=== PATIENT | male | born 1940 | race Caucasian/White ===

== ENCOUNTER 2022-10-30 13:39 | Outpatient (OUT) | payer MEDICARE, SELFPAY ==
--- NOTE | 2022-10-30 14:00 | MR_ITS ---
[address] [address] Patient Name: FRANKI VELA MRN: [id number] date: 1940 Sex: M Assigned Patient Location: MRI Current Patient Location: MRI Accession/Order Number: [id number] Exam Date: 10/30/2022 14:00 Report Date: 10/30/2022 16:46 At the request of: ASHLEY LOVING Procedure: MR lumbar spine wo con EXAMINATION: MR lumbar spine wo con HISTORY: Acute midline low back pain w/o sciatica M54.50, S32.010A ; chronic lumbar pain, L1 compression fracture COMPARISON: XR L-spine 10/05/2022, CT abdomen pelvis 09/12/2022 TECHNIQUE: A variety of imaging planes and parameters were utilized for visualization of suspected pathology. FINDINGS: For the purposes of numbering, sagittal T2 image # 9 extends from the T11-12 vertebral body superiorly to the S3 level inferiorly. PARASPINAL AREA: Normal with no visible mass. BONES: L1 marked compression fracture with prior vertebroplasty. No marrow edema. L2 inferior endplate moderate compression fracture with marrow edema. L4 posterior decompression. CORD/CAUDA EQUINA: Normal caliber, contour, and signal intensity. DISC LEVELS: 12-L1: Moderate central canal and moderate marked foramen narrowing bilaterally. Marked compression fracture and prior vertebroplasty of L1 with retropulsion of the superior aspect of the posterior wall. Moderate degenerative facet arthropathy, right greater than left. L1-L2: Mild central canal, moderate right, marked left foramen narrowing. Mild diffuse disc bulging without disc height reduction. Moderate degenerative facet arthropathy and ligamentum flavum thickening. Narrowing. L2-L3: Moderate central canal with marked bilateral foramen narrowing. Mild diffuse disc bulging and slight retropulsion of the inferior corner of the posterior wall of L2 secondary to inferior endplate moderate compression fracture. Mild-moderate degenerative facet arthropathy and ligamentum flavum thickening bilaterally. L3-L4: Mild central canal, moderate-marked right, moderate left foramen narrowing. Mild diffuse disc bulging without disc at reduction. Moderate degenerative facet arthropathy and ligamentum flavum thickening. L4 posterior decompression. L4-L5: Mild central canal and moderate marked foramen narrowing bilaterally. Mild diffuse disc bulging without disc at reduction. Marked degenerative facet arthropathy bilaterally. L5-S1: Mild central canal and moderate-marked right foramen, moderate left foramen narrowing. No appreciable disc bulging or disc height reduction. Marked degenerative facet arthropathy bilaterally. IMPRESSION: 1. Acute to subacute moderate compression fracture of L2; new since 10/05/2022. 2. Stable marked compression fracture of L1. 3. Recent CT study suggests progression of T11 compression fracture. T11 is only partially included on today's study, but no marrow edema to suggest active or progression of chronic compression fracture. 4. Multilevel marked foramen narrowing predominantly due to facet arthropathy. Moderate central canal narrowing at T12-L1 and L2-3 secondary to retropulsion of the posterior wall of L1 and L2 secondary to compression fractures. Electronically authenticated by: DARIAN BUTTS Date: 10/30/2022 16:46
== END 2022-10-30 13:40 ==
LOC: MRI 13:39
PROVIDERS: PCP Family Medicine; Visit Provider Nurse Practitioner Family
DX: M54.50 Low back pain, unspecified (principal); S32.010A Wedge compression fracture of first lumbar vertebra, initial encounter for closed fracture
CPT/HCPCS: 72148

== ENCOUNTER 2022-11-10 11:08 | Observation (INO) | payer MEDICARE, MEDICAID, SELFPAY ==
[2022-11-10] VITALS (25 sets, daily range): BP systolic 108–143; BP diastolic 55–78; PULSE 68–118; RESP 14–33; TEMP 36.4–36.6; O2SAT 90–99; BMI 18.7; BMI 18.1
--- NOTE | 2022-11-10 11:24 | ED_ITS ---
HPI - SOB/Dyspnea General Chief Complaint: Shortness of Breath/Dyspnea Stated Complaint: SHORTNESS OF BREATH/ GENERAL WEAKNESS Time Seen by Provider: 11/10/22 11:23 Source: patient Mode of arrival: Wheelchair Limitations: no limitations History of Present Illness HPI Narrative: this patient's here with his daughter complaining of increasing shortness of breath over the last several days. They do not believe he is running a fever. He's had increasing purulent sputum as well. He is not currently on any antibiotics. He has chronic atrial fibrillation and does take blood thinners for that. He also had about two or three episodes of diarrhea last night after taking Colace. He does not use oxygen at home. He has one coronary stent in one peripheral stent. He has not been around any other sick or ill patients that he knows of. He is fully vaccinated for Covid. Not having any chest pain, no nausea or vomiting. Does not have any discomfort in his neck or jaw. He is currently dealing with another compression fracture and has discomfort in his back. Related Data Home Medications Medication Instructions Recorded Confirmed apixaban 5 mg tablet (Eliquis) 5 mg PO DAILY 11/10/22 11/10/22 atorvastatin 20 mg tablet 20 mg feeding tube DAILY 11/10/22 11/10/22 finasteride 5 mg tablet 5 mg PO DAILY 11/10/22 11/10/22 hydrocodone 10 mg-acetaminophen 1 tab PO Q6H PRN pain 11/10/22 11/10/22 325 mg tablet insulin glargine 100 unit/mL (3 30 unit subcut DAILY 11/10/22 11/10/22 mL) subcutaneous pen (Lantus Solostar U-100 Insulin) lactulose 10 gram/15 mL oral 20 g feeding tube DAILY 11/10/22 11/10/22 solution (Constulose) levothyroxine 75 mcg capsule 75 mcg PO DAILY 11/10/22 11/10/22 pantoprazole 40 mg tablet,delayed 40 mg PO DAILY 11/10/22 11/10/22 release Allergies Allergy/AdvReac Type Severity Reaction Status Date / Time No Known Drug Allergies Allergy Verified 11/10/22 11:14 [facility] Medical History (Updated 11/10/22 @ 12:43 by Prasanna Casper MD) Surgical History (Updated 11/10/22 @ 12:02 by Ronnie Rosado) Social History Smoking status: Heavy tobacco smoker Exam Narrative Exam Narrative: vital signs are noted he is afebrile. He is in atrial fibrillation on his 12- lead EKG with a variable ventricular response. He's awake alert good historian does not want anything for pain at this time. Skin is warm and dry constitutional vital signs are noted with variable ventricular response as noted above. He looks thin acute on chronically ill. He is dehydrated. Says he has not had much of an appetite. I shows extracted most normal conjunctivitis. Respiratory show scattered rhonchi wheezing throughout. Cardiac shows regular rate and rhythm with no murmur. GIs belly is nontender. Extremities show no lower leg edema with just trace ankle edema. Neuro shows him to be awake alert good historian confusion. Constitutional Vital Signs - 24 hr 11/10/22 11:14 11/10/22 12:03 11/10/22 11:15 Temperature 97.5 F L Pulse Rate 105 H Pulse Rate [Monitor] 110 H Respiratory Rate 24 30 H Blood Pressure 108/78 Blood Pressure [Right Arm] 108/78 Pulse Oximetry 95 97 94 L Oxygen Delivery Method Room Air Room Air 11/10/22 11:15 11/10/22 11:19 Temperature Pulse Rate 106 H Pulse Rate [Monitor] Respiratory Rate 29 H Blood Pressure 143/66 H Blood Pressure [Right Arm] Pulse Oximetry 96 93 L Oxygen Delivery Method Course Vital Signs Vital signs: Vital Signs Temperature 97.5 F L 11/10/22 11:14 Pulse Rate 110 H 11/10/22 11:14 Respiratory Rate 24 11/10/22 11:14 Blood Pressure 108/78 11/10/22 11:14 Pulse Oximetry 95 11/10/22 11:14 Oxygen Delivery Method Room Air 11/10/22 11:14 Temperature 97.5 F L 11/10/22 11:14 Pulse Rate 106 H 11/10/22 11:19 Respiratory Rate 29 H 11/10/22 11:19 Blood Pressure 143/66 H 11/10/22 11:19 Pulse Oximetry 97 11/10/22 12:03 Oxygen Delivery Method Room Air 11/10/22 12:03 MDM - SOB/Dyspnea MDM Narrative Medical decision making narrative: this patient does have an elevation of his white blood cell count change in his sputum and chest x-ray findings consistent with early infiltrate or atelectasis. The patient this does feel little bit better with his nebulizer treatment but he also has chronic back pain from an ongoing compression fracture. He is barely able to sit up and was unable to stand and go for a walk in the room. His pulse oximetry is stable at ninety-three percent but in view of his comorbidities and ongoing medical problems I believe he be best managed as an inpatient. We will contact his primary care doctor. Rocephin will be ordered, he'll be given analgesics. His atrial fibrillation is moderately controlled. Lab Data Labs: Lab Results 11/10/22 Range/Units 11:25 WBC 14.5 H (4.0-11.0) 10^3/uL RBC 4.01 L (4.70-6.10) 10^6/uL Hgb 12.6 L (14.0-18.0) g/dL Hct 38.2 L (42.0-54.0) % MCV 95.3 H (80.0-94.0) fL MCH 31.4 (25.9-34.0) pg MCHC 33.0 (29.9-35.2) g/dL RDW 12.7 (11.0-15.0) % Plt Count 351 (150-450) 10^3/uL MPV 9.4 L (9.5-13.5) fL Neut % (Auto) 81.5 H (43.0-75.0) % Lymph % (Auto) 10.6 L (20.5-60.0) % Gibson % (Auto) 5.4 (1.7-12.0) % Eos % (Auto) 0.8 L (0.9-7.0) % Baso % (Auto) 0.3 (0.2-2.0) % Neut # (Auto) 11.8 H (1.4-6.5) 10^3/uL Lymph # (Auto) 1.5 (1.2-3.8) 10^3/uL Gibson # (Auto) 0.8 (0.3-0.8) 10^3/uL Eos # (Auto) 0.1 (0.0-0.7) 10^3/uL Baso # (Auto) 0.0 (0.0-0.1) 10^3/uL Abs Immat Gran (auto) 0.20 H (0.00-0.03) 10^3/uL Imm/Tot Granulo (auto) 1.4 H (0.0-0.5) % Sodium 141 (136-145) mmol/L Potassium 3.6 (3.5-5.1) mmol/L Chloride 105 (98-107) mmol/L Carbon Dioxide 25.8 (21.0-32.0) mmol/L Anion Gap 13.8 BUN 25.0 H (7.0-18.0) mg/dL Creatinine 0.96 (0.70-1.30) mg/dL Est GFR ( Amer) >60 (>=60) Est GFR (Non-Af Amer) >60 (>=60) BUN/Creatinine Ratio 26.0 Glucose 136 H (74-106) mg/dL Calcium 9.4 (8.5-10.1) mg/dL Total Bilirubin 0.5 (0.2-1.0) mg/dL AST 10 L (15-37) U/L ALT 11 L (16-63) U/L Alkaline Phosphatase 126 H (46-116) U/L Troponin I High Sens 13.5 (4.0-76.1) pg/mL NT-Pro-B Natriuret Pep 1067.0 (<=1800.0) pg/mL Total Protein 6.8 (6.4-8.2) g/dL Albumin 2.9 L (3.4-5.0) g/dL Globulin 3.9 g/dL Albumin/Globulin Ratio 0.7 Discharge Plan Discharge Chief Complaint: Shortness of Breath/Dyspnea Clinical Impression: Compression fracture of lumbar spine, non-traumatic, Community acquired pneumonia Patient Disposition: Admitted As Inpatient Time of Disposition Decision: 12:43 Condition: Fair Prescriptions / Home Meds: No Action Eliquis 5 mg tablet 5 mg PO DAILY finasteride 5 mg tablet 5 mg PO DAILY hydrocodone-acetaminophen 10-325 mg tablet 1 tab PO Q6H PRN (Reason: pain) insulin glargine [Lantus Solostar U-100 Insulin] 100 unit/mL (3 mL) insulin pen 30 unit SUBCUT DAILY lactulose [Constulose] 10 gram/15 mL solution 20 g feeding tube DAILY pantoprazole 40 mg tablet,delayed release (DR/EC) 40 mg PO DAILY atorvastatin 20 mg tablet 20 mg feeding tube DAILY levothyroxine 75 mcg capsule 75 mcg PO DAILY Referrals: Juvenal Murphy MD [Primary Care Provider] - 1 week
--- NOTE | 2022-11-10 11:32 | XR_ITS ---
The [address] [address] Patient Name: FRANKI VELA MRN: [id number] date: 1940 Sex: M Assigned Patient Location: ER Current Patient Location: ER Accession/Order Number: [id number] Exam Date: 11/10/2022 11:40 Report Date: 11/10/2022 12:00 At the request of: ALVINA CHRISTY Procedure: XR chest 1V EXAMINATION: XR chest 1V HISTORY: cough , shortness of breath COMPARISON: XR chest 08/17/2022 FINDINGS: LUNGS: Mild haziness and loss of bronchovascular markings within lung bases. VASCULATURE: No increased pulmonary vasculature. PLEURA: No pneumothorax, effusion, or pleural thickening. CARDIAC: No cardiomegaly or cardiac silhouette abnormality. MEDIASTINUM: No visible mass or adenopathy. BONES: No fracture or visible bone lesion. OTHER: Negative. IMPRESSION: 1. Trace amount of bibasilar infiltrates versus atelectasis. Electronically authenticated by: DARIAN BUTTS Date: 11/10/2022 12:00
--- NOTE | 2022-11-10 11:32 | ECG_ITS ---
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
[2022-11-10 11:45] LABS: Basophils Percent Auto 0.3 % (0.2-2.0); Eosinophils Absolute Auto 0.1 10^3/uL (0.0-0.7); Eosinophils Percent Auto 0.8 % (0.9-7.0); Hematocrit 38.2 % (42.0-54.0); Hemoglobin 12.6 g/dL (14.0-18.0); Immature Granulocytes Pct Auto 1.4 % (0.0-0.5); Lymphocytes Absolute Auto 1.5 10^3/uL (1.2-3.8); Lymphocytes Percent Auto 10.6 % (20.5-60.0); Mean Corpuscular Hemoglobin 31.4 pg (25.9-34.0); Mean Corpuscular Volume 95.3 fL (80.0-94.0); Mean Platelet Volume 9.4 fL (9.5-13.5); Monocytes Absolute Auto 0.8 10^3/uL (0.3-0.8); Monocytes Percent Auto 5.4 % (1.7-12.0); Neutrophils Absolute Auto 11.8 10^3/uL (1.4-6.5); Neutrophils Percent Auto 81.5 % (43.0-75.0); Platelet Count 351 10^3/uL (150-450); Red Blood Count 4.01 10^6/uL (4.70-6.10); Red Cell Distribution Width 12.7 % (11.0-15.0); White Blood Count 14.5 10^3/uL (4.0-11.0)
[2022-11-10] MEDS: IPRATROPIUM/ALBUTEROL SULFATE 3 ML AMPUL.NEB IH ×2 (11:52→22:30)
[2022-11-10 12:10] LABS: Alanine Aminotransferase 11 U/L (16-63); Albumin Globulin Ratio 0.7; Albumin Level 2.9 g/dL (3.4-5.0); Alkaline Phosphatase 126 U/L (46-116); Anion Gap 13.8; Aspartate Amino Transferase 10 U/L (15-37); Bilirubin Total 0.5 mg/dL (0.2-1.0); Calcium 9.4 mg/dL (8.5-10.1); Carbon Dioxide 25.8 mmol/L (21.0-32.0); Chloride 105 mmol/L (98-107); Estimated GFR (African America >60 (>=60); Estimated GFR (Non-African Ame >60 (>=60); Globulin 3.9 g/dL; Glucose 136 mg/dL (74-106); Potassium 3.6 mmol/L (3.5-5.1); Sodium 141 mmol/L (136-145); Total Protein 6.8 g/dL (6.4-8.2); Troponin I High Sensitivity 13.5 pg/mL (4.0-76.1)
[2022-11-10] MEDS: HYDROMORPHONE HCL 2 MG/ML VIAL 1 MG IV (13:01)
[2022-11-10] MEDS: CEFTRIAXONE 1,000 MG in 0.9 % SODIUM CHLORIDE 50 ML 100 MG IV (13:08)
--- NOTE | 2022-11-10 15:14 | PC.NURSE ---
cell phone, 2 shirt
[2022-11-10 16:13] LABS: SARS-CoV-2 Ag NEGATIVE (NEGATIVE)
[2022-11-10 17:49] LABS: Glucometer 117 mg/dL (74-106)
[2022-11-10] MEDS: L. ACIDOPHILUS/L.BULGARICUS 1 PACKET GRAN.PACK PO (17:58)
[2022-11-10] MEDS: LACTATED RINGER'S SOLUTION 1,000 ML 50 ML IV (17:58)
[2022-11-10] MEDS: METHYLPREDNISOLONE SOD SUCC PF 125 MG/2 ML VIAL IVP ×2 (18:06→22:30)
[2022-11-10 18:32] LABS: Adenovirus NOT DETECTED (NOT DETECTE); Bordetella parapertussis NOT DETECTED (NOT DETECTE); Coronavirus 229E NOT DETECTED (NOT DETECTE); Coronavirus HKU1 NOT DETECTED (NOT DETECTE); Coronavirus NL63 NOT DETECTED (NOT DETECTE); Coronavirus OC43 NOT DETECTED (NOT DETECTE); Human Metapneumovirus NOT DETECTED (NOT DETECTE); Human Rhinovirus/Enterovirus NOT DETECTED (NOT DETECTE); Influenza A NOT DETECTED (NOT DETECTE); Influenza B NOT DETECTED (NOT DETECTE); Mycoplasma pneumoniae NOT DETECTED (NOT DETECTE); Parainfluenza Virus 1 NOT DETECTED (NOT DETECTE); Parainfluenza Virus 2 NOT DETECTED (NOT DETECTE); Parainfluenza Virus 3 NOT DETECTED (NOT DETECTE); Parainfluenza Virus 4 NOT DETECTED (NOT DETECTE); Respiratory Syncytial Virus NOT DETECTED (NOT DETECTE); SARS-CoV-2 NOT DETECTED (NOT DETECTE)
--- NOTE | 2022-11-10 18:42 | PC.NURSE ---
This nurse has attempted x 3 since 1544 to contact for diet order. Pt does have Gtube however eats solid food and drinks, only substitutes with GTube. Discussed matter with supervisor wound, suggested to wait for response from and if not by later this evening hospitalist will be contacted with foods pt normally eats. Current diet order reads tube feed, no formula is ordered.
[2022-11-10] MEDS: LEVOFLOXACIN IN DEXTROSE 5 % 500 MG/100 ML PIGGYBACK 100 MG IV (19:36)
[2022-11-10 20:13] LABS: Glucometer 222 mg/dL (74-106)
[2022-11-10] MEDS: PROSTAT 15 GM PROTEIN/100 CAL 30 ML LIQUID PACKET FEED TUBE (21:01)
[2022-11-10] MEDS: APIXABAN 5 MG TABLET 2.5 MG PO (21:02)
[2022-11-10] MEDS: ATORVASTATIN CALCIUM 20 MG TABLET PO (21:02)
[2022-11-10] MEDS: BENZONATATE 100 MG CAPSULE 200 MG PO (21:02)
[2022-11-10] MEDS: INSULIN ASPART 300 UNIT/3 ML PEN SUBQ (21:05)
[2022-11-10] MEDS: BUDESONIDE 0.5 MG/2 ML AMPULE NEB IH (22:16)
[2022-11-11] VITALS (7 sets, daily range): BP systolic 164; BP diastolic 66; PULSE 69–98; RESP 18; TEMP 37; O2SAT 96
[2022-11-11 04:54] LABS: Basophils Percent Auto 0.1 % (0.2-2.0); Eosinophils Percent Auto 0.1 % (0.9-7.0); Hematocrit 32.6 % (42.0-54.0); Hemoglobin 10.6 g/dL (14.0-18.0); Immature Granulocytes Abs Auto 0.09 10^3/uL (0.00-0.03); Immature Granulocytes Pct Auto 1.3 % (0.0-0.5); Lymphocytes Absolute Auto 0.3 10^3/uL (1.2-3.8); Lymphocytes Percent Auto 4.4 % (20.5-60.0); Mean Corpuscular HGB Conc 32.5 g/dL (29.9-35.2); Mean Corpuscular Hemoglobin 30.8 pg (25.9-34.0); Mean Corpuscular Volume 94.8 fL (80.0-94.0); Mean Platelet Volume 9.8 fL (9.5-13.5); Monocytes Percent Auto 0.6 % (1.7-12.0); Neutrophils Absolute Auto 6.3 10^3/uL (1.4-6.5); Neutrophils Percent Auto 93.5 % (43.0-75.0); Platelet Count 232 10^3/uL (150-450); Red Blood Count 3.44 10^6/uL (4.70-6.10); Red Cell Distribution Width 12.5 % (11.0-15.0); White Blood Count 6.8 10^3/uL (4.0-11.0)
[2022-11-11] MEDS: IPRATROPIUM/ALBUTEROL SULFATE 3 ML AMPUL.NEB IH (05:02)
[2022-11-11] MEDS: METHYLPREDNISOLONE SOD SUCC PF 125 MG/2 ML VIAL IVP (05:03)
[2022-11-11] MEDS: BENZONATATE 100 MG CAPSULE 200 MG PO (05:03)
[2022-11-11 05:31] LABS: Alanine Aminotransferase 10 U/L (16-63); Albumin Globulin Ratio 0.7; Albumin Level 2.4 g/dL (3.4-5.0); Alkaline Phosphatase 100 U/L (46-116); Anion Gap 11.8; Aspartate Amino Transferase 7 U/L (15-37); BUN Creatinine Ratio 29.3; Bilirubin Total 0.3 mg/dL (0.2-1.0); Calcium 8.7 mg/dL (8.5-10.1); Carbon Dioxide 24.2 mmol/L (21.0-32.0); Chloride 102 mmol/L (98-107); Estimated GFR (African America >60 (>=60); Estimated GFR (Non-African Ame >60 (>=60); Globulin 3.4 g/dL; Glucose 247 mg/dL (74-106); Magnesium 1.7 mg/dL (1.8-2.4); Sodium 134 mmol/L (136-145); Total Protein 5.8 g/dL (6.4-8.2)
[2022-11-11] MEDS: LEVOTHYROXINE SODIUM 75 MCG TABLET PO (05:58)
[2022-11-11] MEDS: OMEPRAZOLE 40 MG CAPSULE.DR PO (05:59)
[2022-11-11 07:32] LABS: Glucometer 310 mg/dL (74-106)
--- NOTE | 2022-11-11 07:52 | P.HP_ITS ---
H&P: HPI History of Present Illness Chief complaint: SHORTNESS OF BREATH/ GENERAL WEAKNESS Narrative: Patient presented to the emergency room, found to have acute bilateral pneumonia, mild hypoxia, admitted for work-up and treatment of same Review of Systems ROS Status of ROS 10 or more systems reviewed and unremarkable except as noted in history and below Constitutional Reports: fatigue and malaise; Denies: fever or chills Ears, nose, mouth, and throat Reports: neck pain; Denies: throat swelling or difficulty swallowing Cardiovascular Denies: chest pain or palpitations Respiratory Reports: shortness of breath, cough, wheezing and change in phlegm color Genitourinary Denies: painful urination or urinary frequency Musculoskeletal Reports: back pain PFSH [facility] Medical History (Updated 11/11/22 @ 07:55 by Juvenal Murphy MD) Surgical History (Updated 11/10/22 @ 12:02 by Ronnie Rosado) Social History (Updated 11/10/22 @ 15:16 by Rebecca Morocho) Smoking status: Heavy tobacco smoker Nicotine containing products detail: 66 1 pack per day Do you think of yourself as: straight/heterosexual Meds Home Medications and Allergies Home Medications Medication Instructions Recorded Confirmed Type albuterol sulfate 90 mcg/actuation 1 inh inhalation Q4H PRN shortness 11/10/22 11/10/22 History aerosol inhaler (ProAir HFA) of breath or wheezing apixaban 2.5 mg tablet (Eliquis) 2.5 mg PO BID 11/10/22 11/10/22 History atorvastatin 20 mg tablet 20 mg PO .AT BEDTIME 11/10/22 11/10/22 History baclofen 20 mg tablet See Rx Instructions PO QID 11/10/22 11/10/22 History budesonide 0.5 mg/2 mL suspension 0.5 mg inhalation BID 11/10/22 11/10/22 History for nebulization clopidogrel 75 mg tablet 75 mg PO DAILY 11/10/22 11/10/22 History finasteride 5 mg tablet 5 mg PO DAILY 11/10/22 11/10/22 History hydrocodone 10 mg-acetaminophen 1 tab PO Q6H PRN pain 11/10/22 11/10/22 History 325 mg tablet insulin glargine 100 unit/mL (3 30 unit subcut DAILY 11/10/22 11/10/22 History mL) subcutaneous pen (Lantus Solostar U-100 Insulin) levothyroxine 75 mcg capsule 75 mcg PO DAILY 11/10/22 11/10/22 History pantoprazole 40 mg tablet,delayed 40 mg PO DAILY 11/10/22 11/10/22 History release tizanidine 4 mg capsule 4 mg PO Q6H PRN muscle spasticity 11/10/22 11/10/22 History levofloxacin 500 mg tablet 500 mg PO DAILY 10 days #10 tabs 11/11/22 Rx prednisone 10 mg tablet 50 mg PO DAILY #47 tabs 11/11/22 Rx Allergies Allergy/AdvReac Type Severity Reaction Status Date / Time No Known Drug Allergies Allergy Verified 11/10/22 11:14 Exam Constitutional Vital Signs - 24 hr 11/10/22 11:14 11/10/22 12:03 11/10/22 11:15 Temperature 97.5 F L Pulse Rate 105 H Pulse Rate [Monitor] 110 H Respiratory Rate 24 30 H Blood Pressure 108/78 Blood Pressure [Left Arm] Blood Pressure [Right Arm] 108/78 Pulse Oximetry 95 97 94 L Oxygen Delivery Method Room Air Room Air 11/10/22 11:15 11/10/22 11:19 11/10/22 12:40 Temperature Pulse Rate 106 H Pulse Rate [Monitor] 104 H Respiratory Rate 29 H 28 H Blood Pressure 143/66 H Blood Pressure [Left Arm] Blood Pressure [Right Arm] 140/59 H Pulse Oximetry 96 93 L 93 L Oxygen Delivery Method Room Air 11/10/22 11:19 11/10/22 12:30 11/10/22 12:35 Temperature Pulse Rate 105 H 107 H Pulse Rate [Monitor] Respiratory Rate 30 H 25 H Blood Pressure 143/66 H 140/59 H Blood Pressure [Left Arm] Blood Pressure [Right Arm] Pulse Oximetry 93 L 95 95 Oxygen Delivery Method 11/10/22 12:40 11/10/22 12:50 11/10/22 13:00 Temperature Pulse Rate 115 H 109 H 113 H Pulse Rate [Monitor] Respiratory Rate 23 20 15 Blood Pressure Blood Pressure [Left Arm] Blood Pressure [Right Arm] Pulse Oximetry 97 95 96 Oxygen Delivery Method 11/10/22 13:10 11/10/22 13:20 11/10/22 13:30 Temperature Pulse Rate 105 H 93 H 102 H Pulse Rate [Monitor] Respiratory Rate 25 H 24 33 H Blood Pressure Blood Pressure [Left Arm] Blood Pressure [Right Arm] Pulse Oximetry 93 L 92 L 96 Oxygen Delivery Method 11/10/22 13:40 11/10/22 14:51 11/10/22 15:04 Temperature 97.8 F Pulse Rate 113 H 92 H Pulse Rate [Monitor] 92 H Respiratory Rate 15 18 Blood Pressure Blood Pressure [Left Arm] Blood Pressure [Right Arm] 130/69 H Pulse Oximetry 97 96 96 Oxygen Delivery Method Room Air Room Air 11/10/22 13:50 11/10/22 14:00 11/10/22 14:10 Temperature Pulse Rate 97 H 103 H 113 H Pulse Rate [Monitor] Respiratory Rate 14 14 15 Blood Pressure Blood Pressure [Left Arm] Blood Pressure [Right Arm] Pulse Oximetry 95 94 L 98 Oxygen Delivery Method 11/10/22 14:20 11/10/22 14:30 11/10/22 18:07 Temperature Pulse Rate 118 H 101 H 90 Pulse Rate [Monitor] Respiratory Rate 20 17 Blood Pressure Blood Pressure [Left Arm] Blood Pressure [Right Arm] Pulse Oximetry 99 97 Oxygen Delivery Method 11/10/22 20:14 11/10/22 21:34 11/10/22 22:16 Temperature 97.9 F Pulse Rate 76 71 68 Pulse Rate [Monitor] Respiratory Rate 18 18 Blood Pressure Blood Pressure [Left Arm] 123/55 H Blood Pressure [Right Arm] Pulse Oximetry 90 L 91 L Oxygen Delivery Method Room Air Room Air 11/10/22 22:16 11/10/22 22:27 11/11/22 00:00 Temperature Pulse Rate 78 94 H Pulse Rate [Monitor] Respiratory Rate Blood Pressure Blood Pressure [Left Arm] Blood Pressure [Right Arm] Pulse Oximetry 91 L Oxygen Delivery Method Room Air 11/11/22 02:00 11/11/22 04:00 11/11/22 04:56 Temperature 98.6 F Pulse Rate 81 70 76 Pulse Rate [Monitor] Respiratory Rate 18 Blood Pressure Blood Pressure [Left Arm] 164/66 H Blood Pressure [Right Arm] Pulse Oximetry 96 Oxygen Delivery Method Room Air 11/11/22 05:01 11/11/22 06:00 Temperature Pulse Rate 69 98 H Pulse Rate [Monitor] Respiratory Rate 18 Blood Pressure Blood Pressure [Left Arm] Blood Pressure [Right Arm] Pulse Oximetry 96 Oxygen Delivery Method Room Air Common normals: apparent distress (Mild respiratory distress) Exam limitations: no altered mental status General appearance: cooperative; not comfortable HENNH Common normals: moist oral mucous membranes Neck & C-Spine Common normals: no lymphadenopathy and no meningeal signs; negative for full ROM Respiratory Common normals: abnormal respiratory effort (Mild dyspnea) Effort & inspection: able to speak in complete sentences Auscultation: rhonchi Other: Rhonchi more predominant bilateral lower lobes Cardio Common normals: regular rate, regular rhythm, S1 normal heart sound, S2 normal heart sound and no murmurs GI Common normals: Normal to inspection, nondistended, normoactive bowel sounds present (Gastric tube in place) Neuro Common normals: oriented x3 Results Labs Labs: Short CBC 11/10/22 11/11/22 Range/Units 11:25 03:59 WBC 14.5 H 6.8 (4.0-11.0) 10^3/uL Hgb 12.6 L 10.6 L (14.0-18.0) g/dL Hct 38.2 L 32.6 L (42.0-54.0) % Plt Count 351 232 (150-450) 10^3/uL BMP 11/10/22 11/11/22 11:25 03:59 Sodium 141 134 L Potassium 3.6 4.0 Chloride 105 102 Carbon Dioxide 25.8 24.2 BUN 25.0 H 27.0 H Creatinine 0.96 0.92 Glucose 136 H 247 H Calcium 9.4 8.7 Liver Function 11/10/22 11/11/22 Range/Units 11:25 03:59 Total Bilirubin 0.5 0.3 (0.2-1.0) mg/dL AST 10 L 7 L (15-37) U/L ALT 11 L 10 L (16-63) U/L Alkaline Phosphatase 126 H 100 (46-116) U/L Albumin 2.9 L 2.4 L (3.4-5.0) g/dL Assessment and Plan Assessment and Plan (1) History of COPD: (2) History of diabetes mellitus: (3) History of gastrostomy tube placement: (4) History of throat cancer: Plan Sinus tachycardia, leukocytosis secondary to bilateral lower lobe pneumonia with mild hypoxia-much improved today, leukocytosis has resolved, patient overall feels much improved from a strength standpoint. Able to ambulate better today. If this maintains from this morning he can be discharged home in improving condition. Medications see list. Follow-up with me in the office as outpatient in the next 2 days. NIDDM-managed with insulin-increase sliding scale, hyperglycemia secondary to steroids for the above. Hypomagnesemia-supplement Significant lumbar disc disease with new onset of compression fracture-he is undergoing work-up for this at the present time. Patient placed in inpatient status is done in error with the EMR, he should be observation only.
[2022-11-11] MEDS: MAGNESIUM OXIDE 400 MG TABLET G-TUBE (09:03)
[2022-11-11] MEDS: FINASTERIDE 5 MG TABLET PO (09:03)
[2022-11-11] MEDS: CLOPIDOGREL BISULFATE 75 MG TABLET PO (09:03)
[2022-11-11] MEDS: INSULIN DETEMIR 300 UNIT/3 ML INSULN.PEN 30 UNIT SUBQ (09:03)
[2022-11-11] MEDS: APIXABAN 5 MG TABLET 2.5 MG PO (09:03)
[2022-11-11] MEDS: PROSTAT 15 GM PROTEIN/100 CAL 30 ML LIQUID PACKET FEED TUBE (09:03)
--- NOTE | 2022-11-11 09:53 | SWNOTE1 ---
SW met with pt to discuss dc needs. Pt lives at home with his , daughter, and grandchild. Pt uses a cane, but has a walker at home as well. Pt did talk about having oxygen at home as well, but he is on room air at hospital. Pt is not current with any Home health and does not feel he needs it. Pt lives in a 1 story home. Pt denies any needs at this time, SW to follow as needed. SW reviewed MOORE form with pt, pt voiced understanding and does not have any questions. Pt signed form, original given to pt and copy placed in chart.
[2022-11-11 15:38] LABS: SARS-CoV-2 NAA NOT DETECTED (NOT DETECTE)
--- NOTE | 2022-11-12 15:42 | CM.DCFOLLOWU ---
Person spoke with: Michel How are you feeling? Much better How is your pain? no pain Did you understand your discharge instructions? yes Do you have any questions about your discharge instructions? no Were you given any prescriptions at discharge? yes Were you able to get your prescriptions filled? yes Do you understand how to take your medications as ordered? yes Do you have any questions about your follow up appointment and do you plan to keep your follow up appointment? My appointment is tomorrow Is there anything else that you would like to discuss? no Questions/Comments/Concerns/Other:
== END 2022-11-11 10:59 | disposition home or self-care (01) ==
LOC: ER 12:43 → MS 16:01
PROVIDERS: Admitting Provider Family Medicine; Emergency Provider Emergency Medicine Emergency Medical Services; PCP Family Medicine; Visit Provider Family Medicine
DX: J18.9 Pneumonia, unspecified organism (principal); R09.02 Hypoxemia; J44.0 Chronic obstructive pulmonary disease with (acute) lower respiratory infection; E11.65 Type 2 diabetes mellitus with hyperglycemia; E83.42 Hypomagnesemia; M48.56XA Collapsed vertebra, not elsewhere classified, lumbar region, initial encounter for fracture; M51.9 Unspecified thoracic, thoracolumbar and lumbosacral intervertebral disc disorder; R00.0 Tachycardia, unspecified; R06.02 Shortness of breath; I48.20 Chronic atrial fibrillation, unspecified; F17.210 Nicotine dependence, cigarettes, uncomplicated; T38.0X5A Adverse effect of glucocorticoids and synthetic analogues, initial encounter; Z79.01 Long term (current) use of anticoagulants; Z93.1 Gastrostomy status; Z85.819 Personal history of malignant neoplasm of unspecified site of lip, oral cavity, and pharynx; Z20.822 Contact with and (suspected) exposure to COVID-19; Z95.5 Presence of coronary angioplasty implant and graft; Z79.899 Other long term (current) drug therapy; Z79.4 Long term (current) use of insulin; Z79.890 Hormone replacement therapy
CPT/HCPCS: 0202U; 36415; 71045; 80053; 83605; 83735; 83880; 84484; 85025; 87040; 87070; 87106; 87205; 87635; 87811; 93005; 94640; 94667; 94761; 96365; 96366; 96367; 96375; 96376; 97161; 99285; G0378; J1170; J2930

== ENCOUNTER 2022-11-12 14:14 | Outpatient (OUT) | payer MEDICARE, MEDICAID, SELFPAY | END 2022-11-12 14:15 | disposition home or self-care (01) | LOC: WC 14:16 | PROVIDERS: PCP Family Medicine; Visit Provider Surgery | DX: I87.321 Chronic venous hypertension (idiopathic) with inflammation of right lower extremity (principal); D50.0 Iron deficiency anemia secondary to blood loss (chronic); I74.09 Other arterial embolism and thrombosis of abdominal aorta; J44.9 Chronic obstructive pulmonary disease, unspecified; F17.210 Nicotine dependence, cigarettes, uncomplicated; E11.65 Type 2 diabetes mellitus with hyperglycemia; K21.00 Gastro-esophageal reflux disease with esophagitis, without bleeding; I50.9 Heart failure, unspecified; I10 Essential (primary) hypertension; E03.9 Hypothyroidism, unspecified; M51.36 Other intervertebral disc degeneration, lumbar region; E44.0 Moderate protein-calorie malnutrition; I73.89 Other specified peripheral vascular diseases; M54.16 Radiculopathy, lumbar region | CPT/HCPCS: G0463 ==

== ENCOUNTER 2022-12-07 02:17 | Observation (INO) | payer MEDICARE, MEDICAID, SELFPAY ==
[2022-12-07] VITALS (20 sets, daily range): BP systolic 105–143; BP diastolic 57–75; PULSE 51–85; RESP 3–26; TEMP 36.7–37.2; O2SAT 86–100; BMI 18.4
--- NOTE | 2022-12-07 02:33 | XR_ITS ---
The [address] [address] Patient Name: FRANKI VELA MRN: [id number] date: 1940 Sex: M Assigned Patient Location: ER Current Patient Location: ED.MAIN Accession/Order Number: [id number] Exam Date: 12/07/2022 02:45 Report Date: 12/07/2022 03:20 At the request of: GREGOR LYNCH Procedure: XR chest 1V XR chest 1V CLINICAL HISTORY: Shortness of breath. COMPARISON: 11/10/2022. 09/12/2022. TECHNIQUE: Single AP portable upright view of the chest. FINDINGS: Lungs are hyperinflated with chronic interstitial thickening and scarring in the lung bases to large priors with no definite active airspace opacity. No pleural effusion or pneumothorax. Normal heart size. Atherosclerotic aorta. Osteopenia. Thoracic spondylosis. XR/XR chest 1V IMPRESSION: Stable chronic changes with no convincing interval active airspace disease. Electronically authenticated by: BERKLEY VILLATORO Date: 12/07/2022 03:20
--- NOTE | 2022-12-07 02:33 | ECG_ITS ---
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
--- NOTE | 2022-12-07 02:39 | PC.NURSE ---
Pt presents to ER with his and daughter for shortness of breath Pt is soft spoken and of few words When this nurse ask's pt's family why he is here, his daughter replies by saying everything Pt's daughter states he was recently discharged from [facility] after a long stay for everything with his heart and lungs Pt's daughter states he has had a cough today and told her that he couldn't catch his breath Pt's daughter stated his normal pulse ox is 86%
[2022-12-07 02:57] LABS: Hematocrit 33.9 % (42.0-54.0); Mean Corpuscular HGB Conc 32.4 g/dL (29.9-35.2); Mean Corpuscular Hemoglobin 30.6 pg (25.9-34.0); Mean Corpuscular Volume 94.4 fL (80.0-94.0); Mean Platelet Volume 10.5 fL (9.5-13.5); Platelet Count 370 10^3/uL (150-450); Red Blood Count 3.59 10^6/uL (4.70-6.10); Red Cell Distribution Width 13.8 % (11.0-15.0)
[2022-12-07 03:16] LABS: Alanine Aminotransferase 27 U/L (16-63); Albumin Globulin Ratio 0.6; Albumin Level 2.4 g/dL (3.4-5.0); Alkaline Phosphatase 353 U/L (46-116); Aspartate Amino Transferase 15 U/L (15-37); BUN Creatinine Ratio 58.2; Bilirubin Total 0.3 mg/dL (0.2-1.0); Carbon Dioxide 27.6 mmol/L (21.0-32.0); Chloride 103 mmol/L (98-107); Estimated GFR (African America 51 (>=60); Estimated GFR (Non-African Ame 42 (>=60); Globulin 3.8 g/dL; Glucose 229 mg/dL (74-106); Sodium 136 mmol/L (136-145); Total Protein 6.2 g/dL (6.4-8.2); Troponin I High Sensitivity 14.5 pg/mL (4.0-76.1)
[2022-12-07 03:30] LABS: Potassium 6.6 mmol/L (3.5-5.1)
[2022-12-07 03:34] LABS: Band Neutrophils Absolute 0.5 10^3/uL (0.0-0.3)
[2022-12-07] MEDS: 0.9 % SODIUM CHLORIDE 1,000 ML 500 ML IV (03:55)
[2022-12-07 04:25] LABS: Potassium 6.5 mmol/L (3.5-5.1)
--- NOTE | 2022-12-07 05:03 | ED.SOB1 ---
HPI - SOB/Dyspnea General Chief Complaint: Shortness of Breath/Dyspnea Stated Complaint: SHORTNESS OF BREATH Time Seen by Provider: 12/07/22 02:32 Source: family Mode of arrival: Wheelchair Limitations: no limitations History of Present Illness HPI Narrative: Presenting to us with shortness of breath he have a history of multiple admission to the hospital due to the same reason he has not been eating complaining of dizziness he was just seen by his primary care doctor almost 2 days ago The patient is feeling weak and tired and had decreased p.o. intake over the last few days Bilateral leg edema increased from baseline Related Data Home Medications Medication Instructions Recorded Confirmed albuterol sulfate 90 mcg/actuation 1 inh inhalation Q4H PRN shortness 11/10/22 12/07/22 aerosol inhaler (ProAir HFA) of breath or wheezing apixaban 2.5 mg tablet (Eliquis) 2.5 mg PO BID 11/10/22 12/07/22 budesonide 0.5 mg/2 mL suspension 0.5 mg inhalation BID 11/10/22 12/07/22 for nebulization finasteride 5 mg tablet 5 mg PO DAILY 11/10/22 12/07/22 hydrocodone 10 mg-acetaminophen 1 tab PO Q6H PRN pain 11/10/22 12/07/22 325 mg tablet insulin glargine 100 unit/mL (3 30 unit subcut DAILY 11/10/22 12/07/22 mL) subcutaneous pen (Lantus Solostar U-100 Insulin) levothyroxine 75 mcg capsule 75 mcg PO DAILY 11/10/22 12/07/22 pantoprazole 40 mg tablet,delayed 40 mg PO DAILY 11/10/22 12/07/22 release tizanidine 4 mg capsule 4 mg PO Q6H PRN muscle spasticity 11/10/22 12/07/22 atorvastatin 20 mg tablet (Lipitor) 20 mg PO QPM 12/07/22 12/07/22 carvedilol 12.5 mg tablet 12.5 mg PO BID 12/07/22 12/07/22 diltiazem HCl 60 mg 60 mg PO BID 12/07/22 12/07/22 capsule,extended release 12 hr lactulose 10 gram/15 mL oral 15 ml PO BID 12/07/22 12/07/22 solution (Constulose) spironolactone 25 mg tablet 25 mg PO QAM 12/07/22 12/07/22 Allergies Allergy/AdvReac Type Severity Reaction Status Date / Time No Known Drug Allergies Allergy Verified 12/07/22 02:27 Review of Systems ROS Status of ROS 10 or more systems reviewed and unremarkable except as noted in history and below [facility] Medical History (Updated 12/07/22 @ 05:51 by Lyndsay Burgos MD) Surgical History (Updated 11/10/22 @ 12:02 by Ronnie Rosado) Social History (Updated 11/10/22 @ 15:16 by Rebecca Morocho) Smoking status: Heavy tobacco smoker Nicotine containing products detail: 66 1 pack per day Do you think of yourself as: straight/heterosexual Exam Narrative Exam Narrative: Nurses notes and vital signs reviewed and patient is not hypoxic. General: Well-appearing and in no apparent distress. Skin: Warm, dry, no pallor noted. No rash. Head: Normocephalic, atraumatic. Neck: Supple, non-tender. Eye: Pupils are equal, round and EOMI. No scleral icterus. Ears, Nose, Mouth, and Throat: TM are clear, no nasal mucosal hypertrophy. Oral mucosa is moist, no posterior oropharynx erythema, uvula is mid-line Cardiovascular: Regular Rate and Rhythm without murmur, gallop or rub. Respiratory: No accessory muscle use or respiratory distress. Lungs decreased air entry in the bases and rhonchi in both lung nelson with distant wheezing Chest Wall: no tenderness Back: No midline thoracic or lumbar vertebral tenderness. No CVA tenderness Musculoskeletal: normal ROM, no calf or popliteal tenderness, bilateral 2 plus pitting edema GI: Abdomen is soft, non-distended. Normal bowel sounds. No masses appreciated. No tenderness to palpation. No rebound, guarding, or rigidity noted. Neurological: A&O x4. No cranial nerve dysfunction observed. No truncal ataxia. Moves all extremities. Sensation intact. Psychiatric: Cooperative and interactive. Normal mood and affect. Constitutional Vital Signs, click to edit/add: Last Vital Signs Temp 98.0 F 12/07/22 02:21 Pulse 80 12/07/22 06:02 Resp 18 12/07/22 06:02 BP 140/71 H 12/07/22 04:02 Pulse Ox 92 L 12/07/22 06:02 O2 Del Method Room Air 12/07/22 06:02 Course Vital Signs Vital signs: Vital Signs Temperature 98.0 F 12/07/22 02:21 Pulse Rate 84 12/07/22 02:21 Respiratory Rate 18 12/07/22 02:21 Blood Pressure 143/59 H 12/07/22 02:21 Pulse Oximetry 92 L 12/07/22 02:21 Oxygen Delivery Method Room Air 12/07/22 02:21 Temperature 98.0 F 12/07/22 02:21 Pulse Rate 80 12/07/22 06:02 Respiratory Rate 18 12/07/22 06:02 Blood Pressure 140/71 H 12/07/22 04:02 Pulse Oximetry 92 L 12/07/22 06:02 Oxygen Delivery Method Room Air 12/07/22 06:02 MDM - SOB/Dyspnea MDM Narrative Medical decision making narrative: The patient EKG showing sinus rhythm with a heart rate of [address] elevation or depression no peaking of the T waves The patient CBC and chemistry shows elevated potassium that was repleted was not confirmed the patient also had a BUN elevated as well as creatinine He was provided with IV fluid as well as insulin and dextrose with calcium gluconate to control the treat hyperkalemia Patient will be admitted for observation and hyperkalemia management Lab Data Labs: Lab Results 12/07/22 12/07/22 Range/Units 02:30 03:42 WBC 10.0 (4.0-11.0) 10^3/uL RBC 3.59 L (4.70-6.10) 10^6/uL Hgb 11.0 L (14.0-18.0) g/dL Hct 33.9 L (42.0-54.0) % MCV 94.4 H (80.0-94.0) fL MCH 30.6 (25.9-34.0) pg MCHC 32.4 (29.9-35.2) g/dL RDW 13.8 (11.0-15.0) % Plt Count 370 (150-450) 10^3/uL MPV 10.5 (9.5-13.5) fL Seg Neuts % (Manual) 53.0 Band Neutrophils % 5.0 (0-5) % Lymphocytes % (Manual) 12.0 L (20.5-60.0) % Atypical Lymphs % (Man) 20.0 % Monocytes % (Manual) 10.0 (1.7-12.0) % Eosinophils % (Manual) 0.0 L (0.9-7.0) % Basophils % (Manual) 0.0 L (0.2-2.0) % Neutrophils # (Manual) 5.30 (1.4-6.5) 10^3/uL Band Neutrophils # 0.5 H (0.0-0.3) 10^3/uL Lymphocytes # (Manual) 1.20 (1.20-3.80) 10^3/uL Monocytes # (Manual) 1.00 H (0.30-0.80) 10^3/uL Eosinophils # (Manual) 0.00 (0.00-0.70) 10^3/uL Basophils # (Manual) 0.00 (0.00-0.10) 10^3/uL Sodium 136 (136-145) mmol/L Potassium 6.6 H* 6.5 H* (3.5-5.1) mmol/L Chloride 103 (98-107) mmol/L Carbon Dioxide 27.6 (21.0-32.0) mmol/L Anion Gap 12.0 BUN 92.0 H* (7.0-18.0) mg/dL Creatinine 1.58 H (0.70-1.30) mg/dL Est GFR ( Amer) 51 L (>=60) Est GFR (Non-Af Amer) 42 L (>=60) BUN/Creatinine Ratio 58.2 Glucose 229 H (74-106) mg/dL Calcium 9.0 (8.5-10.1) mg/dL Total Bilirubin 0.3 (0.2-1.0) mg/dL AST 15 (15-37) U/L ALT 27 (16-63) U/L Alkaline Phosphatase 353 H (46-116) U/L Troponin I High Sens 14.5 (4.0-76.1) pg/mL NT-Pro-B Natriuret Pep 1006.0 (<=1800.0) pg/mL Total Protein 6.2 L (6.4-8.2) g/dL Albumin 2.4 L (3.4-5.0) g/dL Globulin 3.8 g/dL Albumin/Globulin Ratio 0.6 Discharge Plan Discharge Chief Complaint: Shortness of Breath/Dyspnea Clinical Impression: Acute dehydration, COPD (chronic obstructive pulmonary disease), Acute hyperkalemia, Hypomagnesemia Prescriptions / Home Meds: No Action atorvastatin [Lipitor] 20 mg tablet 20 mg PO QPM lactulose [Constulose] 10 gram/15 mL solution 15 ml PO BID spironolactone 25 mg tablet 25 mg PO QAM carvedilol 12.5 mg tablet 12.5 mg PO BID Rx Instructions: must administer with a meal/food diltiazem HCl 60 mg capsule,extended release 12 hr 60 mg PO BID finasteride 5 mg tablet 5 mg PO DAILY hydrocodone-acetaminophen 10-325 mg tablet 1 tab PO Q6H PRN (Reason: pain) insulin glargine [Lantus Solostar U-100 Insulin] 100 unit/mL (3 mL) insulin pen 30 unit SUBCUT DAILY pantoprazole 40 mg tablet,delayed release (DR/EC) 40 mg PO DAILY levothyroxine 75 mcg capsule 75 mcg PO DAILY Eliquis 2.5 mg tablet 2.5 mg PO BID albuterol sulfate [ProAir HFA] 90 mcg/actuation HFA aerosol inhaler 1 inh inhalation Q4H PRN (Reason: shortness of breath or wheezing) budesonide 0.5 mg/2 mL suspension for nebulization 0.5 mg inhalation BID tizanidine 4 mg capsule 4 mg PO Q6H PRN (Reason: muscle spasticity) Referrals: Juvenal Murphy MD [Primary Care Provider] - 1 week
[2022-12-07] MEDS: INSULIN REGULAR 300 UNITS/3 ML 8 UNIT SUBQ (05:14)
[2022-12-07] MEDS: DEXTROSE 50 %-WATER 25 GM/50 ML SYRINGE 25 ML IV (05:14)
[2022-12-07] MEDS: CALCIUM GLUC IN NACL, ISO-OSM 1 GM/50 ML PLAST..BAG IV (05:15)
[2022-12-07] MEDS: ALBUTEROL SULFATE 2.5 MG/3 ML VIAL NEB (06:01)
--- NOTE | 2022-12-07 07:23 | P.HP_ITS ---
H&P: HPI History of Present Illness Chief complaint: SHORTNESS OF BREATH Narrative: Patient presented to the emergency room with increasing shortness of breath and weakness. Found to have significant dehydration with hyperkalemia. Admitted for work-up and treatment of same. Review of Systems ROS Constitutional Denies: fever or chills Eyes Denies: change in vision Ears, nose, mouth, and throat Reports: throat pain Cardiovascular Denies: chest pain or palpitations Respiratory Reports: shortness of breath and cough Gastrointestinal Denies: abdominal pain [facility] Medical History (Updated 12/07/22 @ 05:51 by Lyndsay Burgos MD) Surgical History (Updated 11/10/22 @ 12:02 by Ronnie Rosado) Social History (Updated 11/10/22 @ 15:16 by Rebecca Morocho) Smoking status: Heavy tobacco smoker Nicotine containing products detail: 66 1 pack per day Do you think of yourself as: straight/heterosexual Meds Home Medications and Allergies Home Medications Medication Instructions Recorded Confirmed Type albuterol sulfate 90 mcg/actuation 1 inh inhalation Q4H PRN shortness 11/10/22 12/07/22 History aerosol inhaler (ProAir HFA) of breath or wheezing apixaban 2.5 mg tablet (Eliquis) 2.5 mg PO BID 11/10/22 12/07/22 History budesonide 0.5 mg/2 mL suspension 0.5 mg inhalation BID 11/10/22 12/07/22 History for nebulization finasteride 5 mg tablet 5 mg PO DAILY 11/10/22 12/07/22 History hydrocodone 10 mg-acetaminophen 1 tab PO Q6H PRN pain 11/10/22 12/07/22 History 325 mg tablet insulin glargine 100 unit/mL (3 30 unit subcut DAILY 11/10/22 12/07/22 History mL) subcutaneous pen (Lantus Solostar U-100 Insulin) levothyroxine 75 mcg capsule 75 mcg PO DAILY 11/10/22 12/07/22 History pantoprazole 40 mg tablet,delayed 40 mg PO DAILY 11/10/22 12/07/22 History release tizanidine 4 mg capsule 4 mg PO Q6H PRN muscle spasticity 11/10/22 12/07/22 History atorvastatin 20 mg tablet (Lipitor) 20 mg PO QPM 12/07/22 12/07/22 History carvedilol 12.5 mg tablet 12.5 mg PO BID 12/07/22 12/07/22 History diltiazem HCl 60 mg 60 mg PO BID 12/07/22 12/07/22 History capsule,extended release 12 hr lactulose 10 gram/15 mL oral 15 ml PO BID 12/07/22 12/07/22 History solution (Constulose) spironolactone 25 mg tablet 25 mg PO QAM 12/07/22 12/07/22 History Allergies Allergy/AdvReac Type Severity Reaction Status Date / Time No Known Drug Allergies Allergy Verified 12/07/22 02:27 Exam Constitutional Vital Signs, click to edit/add: Last Vital Signs Temp 98.0 F 12/07/22 02:21 Pulse 85 12/07/22 07:04 Resp 22 12/07/22 07:04 BP 110/75 12/07/22 07:04 Pulse Ox 92 L 12/07/22 06:02 O2 Del Method Room Air 12/07/22 06:02 HENRI Common normals: normocephalic Chest Common normals: inspection of chest normal Respiratory Auscultation: diminished lung sounds Cardio Common normals: regular rate, regular rhythm and no murmurs GI Common normals: negative for Normal to inspection, nondistended, normoactive bowel sounds present (Feeding tube in place) Palpation: soft; not firm and non-tender Results Labs Labs: Short CBC 12/07/22 Range/Units 02:30 WBC 10.0 (4.0-11.0) 10^3/uL Hgb 11.0 L (14.0-18.0) g/dL Hct 33.9 L (42.0-54.0) % Plt Count 370 (150-450) 10^3/uL BMP 12/07/22 12/07/22 02:30 03:42 Sodium 136 Potassium 6.6 H* 6.5 H* Chloride 103 Carbon Dioxide 27.6 BUN 92.0 H* Creatinine 1.58 H Glucose 229 H Calcium 9.0 Liver Function 12/07/22 Range/Units 02:30 Total Bilirubin 0.3 (0.2-1.0) mg/dL AST 15 (15-37) U/L ALT 27 (16-63) U/L Alkaline Phosphatase 353 H (46-116) U/L Albumin 2.4 L (3.4-5.0) g/dL Assessment and Plan Assessment and Plan (1) Acute dehydration: (2) COPD (chronic obstructive pulmonary disease): (3) Acute hyperkalemia: (4) Hypomagnesemia: (5) Compression fracture of lumbar spine, non-traumatic: (6) Hypomagnesemia: (7) History of diabetes mellitus: (8) History of throat cancer: Plan Hyperkalemia, acute kidney injury with secondary to dehydration. Just happened over the last 24 hours. We will hydrate today. Continue with his tube feeds. If improved tomorrow possible discharge tomorrow COPD-stable Esophageal cancer-does still have his hoarseness. But voice strength is actually pretty good today hyperkalemia-given medications in ER we will repeat labs at noon Compression fracture-still work-up Hypomagnesemia-supplement We will place patient in observation status. If improved tomorrow likely discharge to home. If laboratory evaluations do not improve or patient's condition deteriorates will need to be inpatient status.
[2022-12-07] MEDS: LACTATED RINGER'S SOLUTION 1,000 ML 100 ML IV ×2 (08:56→18:34)
[2022-12-07] MEDS: BUDESONIDE 0.5 MG/2 ML AMPULE NEB IH ×2 (09:24→20:00)
[2022-12-07] MEDS: ALBUTEROL SULFATE 2.5 MG/3 ML VIAL NEB IH ×2 (09:28→20:00)
--- NOTE | 2022-12-07 09:34 | RESP.RT ---
increased to 4L and SpO2 recovered to 94%
[2022-12-07] MEDS: LEVOTHYROXINE SODIUM 75 MCG TABLET PO (10:21)
[2022-12-07] MEDS: APIXABAN 5 MG TABLET 2.5 MG PO ×2 (10:21→16:23)
[2022-12-07] MEDS: FINASTERIDE 5 MG TABLET PO (10:21)
[2022-12-07] MEDS: OMEPRAZOLE 40 MG CAPSULE.DR PO (10:21)
[2022-12-07] MEDS: DILTIAZEM HCL 60 MG TABLET PO ×2 (10:22→21:29)
[2022-12-07] MEDS: CARVEDILOL 12.5 MG TABLET PO (10:22)
[2022-12-07] MEDS: LACTULOSE 10 GM/15 ML (237ML) SOLUTION PO ×2 (10:23→21:29)
[2022-12-07 10:49] LABS: Bilirubin Urine NEGATIVE (NEGATIVE); Blood Urine NEGATIVE (NEGATIVE); Clarity Urine CLEAR (CLEAR); Color Urine LT. YELLOW (YELLOW); Glucose Urine UA NEGATIVE (NEGATIVE); Ketones Urine NEGATIVE (NEGATIVE); Leukocyte Esterase Urine NEGATIVE (NEGATIVE); Nitrite Urine NEGATIVE (NEGATIVE); Protein Urine TRACE mg/dL (NEG/TRACE); Specific Gravity Urine 1.015 (1.005-1.025); Urobilinogen Urine 0.2 EU/dL (0.2-1.0)
[2022-12-07] MEDS: INSULIN ASPART 300 UNIT/3 ML PEN SUBQ ×2 (10:52→21:29)
[2022-12-07 10:54] LABS: Bacteria Urine NONE SEEN #/HPF (NONE SEEN); Cast Seen? NONE SEEN #/LPF (NONE SEEN); Crystals Seen? None Seen #/HPF (None Seen); Mucus Urine NONE SEEN (NONE SEEN); RBC Urine NONE SEEN #/HPF (0-2); Squamous Epithelial Cell Urine RARE #/LPF (NONE/RARE); Urine Culture Indicated NO; WBC Urine NONE SEEN #/HPF (NONE SEEN)
[2022-12-07 10:56] LABS: Glucometer 223 mg/dL (74-106)
[2022-12-07 12:15] LABS: Anion Gap 13.4; BUN Creatinine Ratio 50.4; Calcium 9.1 mg/dL (8.5-10.1); Carbon Dioxide 24.9 mmol/L (21.0-32.0); Chloride 106 mmol/L (98-107); Estimated GFR (African America 59 (>=60); Estimated GFR (Non-African Ame 48 (>=60); Glucose 188 mg/dL (74-106); Sodium 138 mmol/L (136-145)
[2022-12-07 12:29] LABS: Potassium 6.3 mmol/L (3.5-5.1)
--- NOTE | 2022-12-07 14:43 | SWNOTE1 ---
SW met with pt to discuss dc needs. Pt does live at home with , daughter, and grandchild. Pt was sleepy during assessment, but able to answer questions. He was not sure if home health was coming in the home right now, he has had them in past. Pt uses a walker at home and does have a PEG tube. He did voice he is not doing as well at home right now. SW to assess dc needs tomorrow.
[2022-12-07 15:59] LABS: Glucometer 105 mg/dL (74-106)
--- NOTE | 2022-12-07 16:21 | P.CN_ITS ---
Consult Note: [facility] Data of Consult Consult date: 12/07/22 Requesting Physician: Juvenal Murphy MD Primary Care Provider: Juvenal Murphy MD Consult Narrative Reason for consult: Open ulcer to coccyx Narrative: Patient with small open area to coccyx (0.9cmx0.9cmx0.1cm). Non-blanching pink periwound. Open area with minimal drainage. Has some brusing noted on arms/hands as well. Skin intact with exception of coccyx. Repositioned patient to left side with assistance from bedside RN. cc:: CC: Juvenal Murphy MD [facility] Medical History (Updated 12/07/22 @ 05:51 by Lyndsay Burgos MD) Surgical History (Updated 11/10/22 @ 12:02 by Ronnie Rosado) Social History (Updated 11/10/22 @ 15:16 by Rebecca Morocho) Smoking status: Heavy tobacco smoker Nicotine containing products detail: 66 1 pack per day Do you think of yourself as: straight/heterosexual Meds Home Medications and Allergies Home Medications Medication Instructions Recorded Confirmed Type albuterol sulfate 90 mcg/actuation 1 inh inhalation Q4H PRN shortness 11/10/22 12/07/22 History aerosol inhaler (ProAir HFA) of breath or wheezing apixaban 2.5 mg tablet (Eliquis) 2.5 mg PO BID 11/10/22 12/07/22 History budesonide 0.5 mg/2 mL suspension 0.5 mg inhalation BID 11/10/22 12/07/22 History for nebulization finasteride 5 mg tablet 5 mg PO DAILY 11/10/22 12/07/22 History hydrocodone 10 mg-acetaminophen 1 tab PO Q6H PRN pain 11/10/22 12/07/22 History 325 mg tablet insulin glargine 100 unit/mL (3 30 unit subcut DAILY 11/10/22 12/07/22 History mL) subcutaneous pen (Lantus Solostar U-100 Insulin) levothyroxine 75 mcg capsule 75 mcg PO DAILY 11/10/22 12/07/22 History pantoprazole 40 mg tablet,delayed 40 mg PO DAILY 11/10/22 12/07/22 History release tizanidine 4 mg capsule 4 mg PO Q6H PRN muscle spasticity 11/10/22 12/07/22 History atorvastatin 20 mg tablet (Lipitor) 20 mg PO QPM 12/07/22 12/07/22 History carvedilol 12.5 mg tablet 12.5 mg PO BID 12/07/22 12/07/22 History diltiazem HCl 60 mg 60 mg PO BID 12/07/22 12/07/22 History capsule,extended release 12 hr lactulose 10 gram/15 mL oral 15 ml PO BID 12/07/22 12/07/22 History solution (Constulose) spironolactone 25 mg tablet 25 mg PO QAM 12/07/22 12/07/22 History Allergies Allergy/AdvReac Type Severity Reaction Status Date / Time No Known Drug Allergies Allergy Verified 12/07/22 02:27 Exam Constitutional Vital Signs, click to edit/add: Last Vital Signs Temp 98.2 F 12/07/22 15:17 Pulse 60 12/07/22 16:07 Resp 16 12/07/22 15:17 BP 113/74 12/07/22 15:17 Pulse Ox 92 L 12/07/22 15:17 O2 Del Method Nasal Cannula 12/07/22 15:17 O2 Flow Rate 3 12/07/22 15:17 Results Labs Labs: Short CBC 12/07/22 Range/Units 02:30 WBC 10.0 (4.0-11.0) 10^3/uL Hgb 11.0 L (14.0-18.0) g/dL Hct 33.9 L (42.0-54.0) % Plt Count 370 (150-450) 10^3/uL BMP 12/07/22 12/07/22 12/07/22 02:30 03:42 11:46 Sodium 136 138 Potassium 6.6 H* 6.5 H* 6.3 H* Chloride 103 106 Carbon Dioxide 27.6 24.9 BUN 92.0 H* 71.0 H Creatinine 1.58 H 1.41 H Glucose 229 H 188 H Calcium 9.0 9.1 Liver Function 12/07/22 Range/Units 02:30 Total Bilirubin 0.3 (0.2-1.0) mg/dL AST 15 (15-37) U/L ALT 27 (16-63) U/L Alkaline Phosphatase 353 H (46-116) U/L Albumin 2.4 L (3.4-5.0) g/dL Urine 07/17/23 Range/Units 10:42 Urine Color Lt. yellow (YELLOW) Urine Clarity Clear (CLEAR) Urine pH 8.0 (5.0-9.0) Ur Specific [place] 1.015 (1.005-1.025) Urine Protein Trace (NEG/TRACE) mg/dL Urine Glucose (UA) Negative (NEGATIVE) mg/dL Assessment and Plan Assessment and Plan (1) Acute dehydration: (2) COPD (chronic obstructive pulmonary disease): (3) Acute hyperkalemia: (4) Hypomagnesemia: (5) Compression fracture of lumbar spine, non-traumatic: (6) History of diabetes mellitus: (7) History of throat cancer: Plan Triad wound paste to coccyx area daily and as needed after cleansing. Reposition frequently as tolerated. Waffle mattress and seat cushion. Note sent to Dr. Murphy for review.
[2022-12-07] MEDS: ATORVASTATIN CALCIUM 20 MG TABLET PO (19:37)
[2022-12-07] MEDS: TIZANIDINE HCL 4 MG TABLET PO (19:37)
[2022-12-07 20:18] LABS: Glucometer 184 mg/dL (74-106)
[2022-12-08] VITALS (14 sets, daily range): BP systolic 119–132; BP diastolic 53–66; PULSE 49–71; RESP 16–18; TEMP 36.6–37.2; O2SAT 82–93; BMI 18.4
[2022-12-08] MEDS: LACTATED RINGER'S SOLUTION 1,000 ML 100 ML IV (04:09)
[2022-12-08 05:21] LABS: Hematocrit 29.2 % (42.0-54.0); Hemoglobin 9.5 g/dL (14.0-18.0); Mean Corpuscular HGB Conc 32.5 g/dL (29.9-35.2); Mean Corpuscular Hemoglobin 31.6 pg (25.9-34.0); Mean Platelet Volume 10.5 fL (9.5-13.5); Platelet Count 240 10^3/uL (150-450); Red Blood Count 3.01 10^6/uL (4.70-6.10); Red Cell Distribution Width 13.9 % (11.0-15.0); White Blood Count 7.4 10^3/uL (4.0-11.0)
[2022-12-08 05:41] LABS: Alanine Aminotransferase 19 U/L (16-63); Albumin Globulin Ratio 0.6; Alkaline Phosphatase 124 U/L (46-116); Anion Gap 11.6; Aspartate Amino Transferase 19 U/L (15-37); BUN Creatinine Ratio 41.6; Bilirubin Total 0.3 mg/dL (0.2-1.0); Calcium 8.8 mg/dL (8.5-10.1); Carbon Dioxide 24.3 mmol/L (21.0-32.0); Chloride 106 mmol/L (98-107); Estimated GFR (African America >60 (>=60); Estimated GFR (Non-African Ame 56 (>=60); Globulin 3.2 g/dL; Glucose 152 mg/dL (74-106); Potassium 5.9 mmol/L (3.5-5.1); Sodium 136 mmol/L (136-145); Total Protein 5.2 g/dL (6.4-8.2)
[2022-12-08 06:07] LABS: Basophils Abs Manual 0.07 10^3/uL (0.00-0.10); Eosinophils Absolute Manual 0.07 10^3/uL (0.00-0.70); Lymphocytes Absolute Manual 0.29 10^3/uL (1.20-3.80); Monocytes Absolute Manual 0.29 10^3/uL (0.30-0.80); Segmented Neut Absolute Manual 5.84 10^3/uL (1.4-6.5)
[2022-12-08] MEDS: OMEPRAZOLE 40 MG CAPSULE.DR PO (06:16)
[2022-12-08] MEDS: LEVOTHYROXINE SODIUM 75 MCG TABLET PO (06:16)
[2022-12-08] MEDS: INSULIN ASPART 300 UNIT/3 ML PEN SUBQ ×2 (07:58→11:50)
[2022-12-08] MEDS: CARVEDILOL 12.5 MG TABLET PO (07:59)
[2022-12-08] MEDS: FINASTERIDE 5 MG TABLET PO (07:59)
[2022-12-08] MEDS: DILTIAZEM HCL 60 MG TABLET PO (07:59)
[2022-12-08] MEDS: TIZANIDINE HCL 4 MG TABLET PO (07:59)
[2022-12-08] MEDS: APIXABAN 5 MG TABLET 2.5 MG PO (07:59)
--- NOTE | 2022-12-08 08:08 | P.PN_ITS ---
Progress Note: Subjective Subjective Interval history: Patient does appear improved from previous day. He states he feels better. We will see how his day progresses. Exam Constitutional Vital Signs, click to edit/add: Last Vital Signs Temp 99.0 F 12/08/22 04:30 Pulse 69 12/08/22 07:54 Resp 18 12/08/22 04:30 BP 119/66 12/08/22 04:30 Pulse Ox 86 L 12/08/22 04:30 O2 Del Method Nasal Cannula 12/08/22 04:30 O2 Flow Rate 3 12/08/22 04:30 Documenting provider has reviewed patient's vital signs: yes Common normals: no apparent distress Exam limitations: no altered mental status General appearance: cooperative Chest Common normals: inspection of chest normal Respiratory Common normals: normal respiratory effort and clear to auscultation bilaterally Auscultation: diminished lung sounds Cardio Common normals: regular rate, regular rhythm and no murmurs Progress Note: Objective Labs Labs: Short CBC 12/08/22 Range/Units 04:56 WBC 7.4 (4.0-11.0) 10^3/uL Hgb 9.5 L (14.0-18.0) g/dL Hct 29.2 L (42.0-54.0) % Plt Count 240 (150-450) 10^3/uL BMP 12/07/22 12/08/22 11:46 04:56 Sodium 138 136 Potassium 6.3 H* 5.9 H Chloride 106 106 Carbon Dioxide 24.9 24.3 BUN 71.0 H 52.0 H Creatinine 1.41 H 1.25 Glucose 188 H 152 H Calcium 9.1 8.8 Liver Function 12/08/22 Range/Units 04:56 Total Bilirubin 0.3 (0.2-1.0) mg/dL AST 19 (15-37) U/L ALT 19 (16-63) U/L Alkaline Phosphatase 124 H (46-116) U/L Albumin 2.0 L (3.4-5.0) g/dL Urine 12/07/22 Range/Units 10:42 Urine Color Lt. yellow (YELLOW) Urine Clarity Clear (CLEAR) Urine pH 8.0 (5.0-9.0) Ur Specific [place] 1.015 (1.005-1.025) Urine Protein Trace (NEG/TRACE) mg/dL Urine Glucose (UA) Negative (NEGATIVE) mg/dL Progress Note: A&P Assessment and Plan (1) Acute dehydration: (2) COPD (chronic obstructive pulmonary disease): (3) Acute hyperkalemia: (4) Hypomagnesemia: (5) Compression fracture of lumbar spine, non-traumatic: (6) History of diabetes mellitus: (7) History of throat cancer: Plan Hyperkalemia, acute kidney injury with secondary to dehydration.? Potassium is better although somewhat elevated, maintain IV fluids, restart his tube feeds. If patient can be weaned off of supplemental oxygen and is moving around as he has prior he can be discharged home later today. Medications see list. Follow- up with me in the office within the next week. COPD-stable Esophageal cancer-does still have his hoarseness.? But voice strength is actually pretty good today ?hyperkalemia-given medications in ER we will repeat labs at noon Compression fracture-still work-up Hypomagnesemia-supplement possible discharge later today. If unable to improve patient later today he w ill need to be changed to inpatient status Secondary to prolonged Medical therapy necessary to improve his acute kidney injury and hyperkalemia.
--- NOTE | 2022-12-08 09:53 | RESP.RT ---
found on room air so left him off oxygen for a trial.
[2022-12-08] MEDS: BUDESONIDE 0.5 MG/2 ML AMPULE NEB IH (10:17)
[2022-12-08] MEDS: ALBUTEROL SULFATE 2.5 MG/3 ML VIAL NEB IH (10:17)
--- NOTE | 2022-12-08 11:03 | DIETREC ---
Recommend 237 ml Ensure q 4 h via peg tube; 200 ml H2o q 4 h via peg tube; 30 ml prostat daily via peg tube for progressive wound healing ( tube feeding + prostat furnishes 100% estimated calorie needs 95% estimated protein needs; 100% estimated fluid needs)
[2022-12-08 11:11] LABS: Glucometer 186 mg/dL (74-106)
[2022-12-08] MEDS: SODIUM POLYSTYRENE SULFON/SORB 15 GM/60 ML ORAL.SUSP 30 GM PO (11:50)
--- NOTE | 2022-12-08 12:15 | SWNOTE1 ---
ANTONIA spoke with pt's daughter who lives with pt. He does have [facility] coming in still, PT, speech, and nursing. Pt does have home oxygen, but he does not wear it. He has had it for 2 years and just does not wear it. She stated he has been doing well at home, but gets dehydrated. She feels if she keeps him hydrated she feels he will be alright. SW let her know it is possible pt will be discharged today, daughter will pick him up. ANTONIA to follow as needed. ANTONIA to send discharge orders to [facility].
--- NOTE | 2022-12-08 14:50 | CM.NOTE ---
Medicare Outpatient Observation Notice discussed with pt, pt verbalizes understanding and signs paper. Original given to pt and copy placed on pt's chart.
== END 2022-12-08 15:53 | disposition home or self-care (01) ==
LOC: ER 03:00 → MS 07:41
PROVIDERS: Admitting Provider Family Medicine; Emergency Provider Emergency Medicine; PCP Family Medicine; Visit Provider Family Medicine
DX: E86.0 Dehydration (principal); E87.5 Hyperkalemia; N17.9 Acute kidney failure, unspecified; J44.9 Chronic obstructive pulmonary disease, unspecified; E83.42 Hypomagnesemia; R06.02 Shortness of breath; M48.56XA Collapsed vertebra, not elsewhere classified, lumbar region, initial encounter for fracture; E11.9 Type 2 diabetes mellitus without complications; C15.9 Malignant neoplasm of esophagus, unspecified; L98.499 Non-pressure chronic ulcer of skin of other sites with unspecified severity; F17.210 Nicotine dependence, cigarettes, uncomplicated; Z79.899 Other long term (current) drug therapy; Z79.01 Long term (current) use of anticoagulants; Z79.890 Hormone replacement therapy; Z79.4 Long term (current) use of insulin
CPT/HCPCS: 36415; 51702; 71045; 80048; 80053; 81001; 82948; 83735; 83880; 84132; 84484; 85007; 85025; 87086; 93005; 94640; 94667; 94761; 96361; 96365; 96375; 99285; G0328; G0378

== ENCOUNTER 2022-12-17 11:19 | Outpatient (REF) | payer MEDICARE, MEDICAID, SELFPAY ==
[2022-12-17 11:38] LABS: Bilirubin Urine NEGATIVE (NEGATIVE); Blood Urine NEGATIVE (NEGATIVE); Clarity Urine CLEAR (CLEAR); Color Urine YELLOW (YELLOW); Glucose Urine UA NEGATIVE (NEGATIVE); Ketones Urine NEGATIVE (NEGATIVE); Leukocyte Esterase Urine NEGATIVE (NEGATIVE); Nitrite Urine NEGATIVE (NEGATIVE); Protein Urine 100 mg/dL (NEG/TRACE); Specific Gravity Urine 1.015 (1.005-1.025); Urobilinogen Urine 0.2 EU/dL (0.2-1.0)
[2022-12-17 11:41] LABS: Urine Microscopic Indicated YES
[2022-12-17 12:03] LABS: RBC Urine NONE SEEN #/HPF (0-2); WBC Urine NONE SEEN #/HPF (NONE SEEN)
[2022-12-17 12:05] LABS: Bacteria Urine LARGE #/HPF (NONE SEEN)
[2022-12-17 12:06] LABS: Mucus Urine TRACE (NONE SEEN); Squamous Epithelial Cell Urine RARE #/LPF (NONE/RARE)
[2022-12-17 12:07] LABS: Urine Culture Indicated YES
== END 2022-12-17 11:20 | disposition home or self-care (01) ==
LOC: LAB 11:19
PROVIDERS: PCP Family Medicine; Visit Provider Family Medicine
DX: N39.0 Urinary tract infection, site not specified (principal)
CPT/HCPCS: 81001; 81003; 87086

== ENCOUNTER 2022-12-18 12:11 | Inpatient (IN) | payer MEDICARE, MEDICAID, SELFPAY ==
[2022-12-18] VITALS (12 sets, daily range): BP systolic 112–124; BP diastolic 59–63; PULSE 52–96; RESP 14–18; TEMP 36.4–36.9; O2SAT 92–96; BMI 18.3
--- NOTE | 2022-12-18 12:39 | XR_ITS ---
The [address] [address] Patient Name: FRANKI VELA MRN: [id number] date: 1940 Sex: M Assigned Patient Location: [place] Current Patient Location: [place] Accession/Order Number: [id number] Exam Date: 12/18/2022 14:40 Report Date: 12/18/2022 15:08 At the request of: MICHEAL GUTIÉRREZ Procedure: XR acute abdomen series EXAMINATION: XR acute abdomen series HISTORY: Abd Pain , cough, dehydration COMPARISON: XR chest 12/07/2022 XR L-spine 10/05/2022 FINDINGS: LUNGS: Question multiple small patchy opacity within lateral right lung base. Stable chronic interstitial changes bilaterally. MEDIASTINUM: No abnormal widening. BOWEL GAS PATTERN: PEG tube position of the stomach. No abnormal bowel dilation or suspicious fluid levels. Moderate stool burden. FREE AIR: None. CALCIFICATIONS: None significant. BONES: Prior vertebroplasty of L1. Multilevel mild/moderate compression fractures; grossly stable. OTHER: Negative. XR/XR acute abdomen series IMPRESSION: 1. Minimal atelectasis versus focal infiltrates within right lung base. Otherwise stable chronic interstitial changes. 2. Normal bowel gas pattern. No acute abdominal findings. Electronically authenticated by: DARIAN BUTTS Date: 12/18/2022 15:08
[2022-12-18 14:25] LABS: Hematocrit 30.2 % (42.0-54.0); Mean Corpuscular HGB Conc 33.1 g/dL (29.9-35.2); Mean Corpuscular Hemoglobin 32.1 pg (25.9-34.0); Mean Corpuscular Volume 96.8 fL (80.0-94.0); Mean Platelet Volume 9.9 fL (9.5-13.5); Platelet Count 233 10^3/uL (150-450); Red Blood Count 3.12 10^6/uL (4.70-6.10); Red Cell Distribution Width 15.6 % (11.0-15.0); White Blood Count 4.8 10^3/uL (4.0-11.0)
[2022-12-18 14:28] LABS: Glucometer 279 mg/dL (74-106)
[2022-12-18 14:47] LABS: Alanine Aminotransferase 20 U/L (16-63); Albumin Globulin Ratio 0.7; Albumin Level 2.2 g/dL (3.4-5.0); Alkaline Phosphatase 206 U/L (46-116); Amylase 37 U/L (25-115); Anion Gap 12.9; Aspartate Amino Transferase 15 U/L (15-37); BUN Creatinine Ratio 42.3; Bilirubin Total 0.3 mg/dL (0.2-1.0); Calcium 8.2 mg/dL (8.5-10.1); Carbon Dioxide 26.4 mmol/L (21.0-32.0); Chloride 104 mmol/L (98-107); Creatine Kinase 40 U/L (39-308); Creatine Kinase MB 2.02 ng/mL (<=3.60); Estimated GFR (African America >60 (>=60); Estimated GFR (Non-African Ame 57 (>=60); Globulin 3.3 g/dL; Glucose 247 mg/dL (74-106); Magnesium 2.2 mg/dL (1.8-2.4); Myoglobin 147 ng/mL (16-96); Potassium 4.3 mmol/L (3.5-5.1); Sodium 139 mmol/L (136-145); Total Protein 5.5 g/dL (6.4-8.2); Troponin I High Sensitivity 18.6 pg/mL (4.0-76.1)
[2022-12-18 14:55] LABS: Ammonia 44 umol/L (11-32)
[2022-12-18 14:57] LABS: Lactate/Lactic Acid 2.4 mmol/L (0.4-2.0)
[2022-12-18 14:58] LABS: Band Neutrophils Absolute 0.3 10^3/uL (0.0-0.3); Eosinophils Absolute Manual 0.04 10^3/uL (0.00-0.70); Lymphocytes Absolute Manual 1.24 10^3/uL (1.20-3.80); Monocytes Absolute Manual 0.67 10^3/uL (0.30-0.80); Segmented Neut Absolute Manual 2.49 10^3/uL (1.4-6.5)
--- NOTE | 2022-12-18 15:25 | CM.NOTE ---
Called [facility] to verify pt is active with . Pt is active. Updates sent to [facility].
[2022-12-18] MEDS: ACETAMINOPHEN 500 MG TABLET 1000 MG PO (15:30)
[2022-12-18] MEDS: IPRATROPIUM/ALBUTEROL SULFATE 3 ML AMPUL.NEB IH ×2 (16:22→22:00)
--- NOTE | 2022-12-18 17:00 | P.HP_ITS ---
H&P: HPI History of Present Illness Chief complaint: DEHYDRATION Narrative: Patient seen in the office with significant weakness. Appears to be dehydrated. Significant hyperglycemia since he been off his long-acting insulin contributing to the dehydration part. Chest x-ray suggest right lower lobe pneumonia Patient admitted for work-up and treatment of same [facility] Medical History (Updated 12/12/22 @ 00:00 by ) Surgical History (Updated 11/10/22 @ 12:02 by Ronnie Rosado) Social History (Updated 11/10/22 @ 15:16 by Rebecca Morocho) Smoking status: Heavy tobacco smoker Nicotine containing products detail: 66 1 pack per day Do you think of yourself as: straight/heterosexual Meds Home Medications and Allergies Home Medications Medication Instructions Recorded Confirmed Type albuterol sulfate 90 mcg/actuation 1 inh inhalation Q4H PRN shortness 11/10/22 12/18/22 History aerosol inhaler (ProAir HFA) of breath or wheezing apixaban 2.5 mg tablet (Eliquis) 2.5 mg PO BID 11/10/22 12/18/22 History budesonide 0.5 mg/2 mL suspension 0.5 mg inhalation BID 11/10/22 12/18/22 History for nebulization finasteride 5 mg tablet 5 mg PO DAILY 11/10/22 12/18/22 History hydrocodone 10 mg-acetaminophen 1 tab PO Q6H PRN pain 11/10/22 12/18/22 History 325 mg tablet insulin glargine 100 unit/mL (3 30 unit subcut DAILY 11/10/22 12/18/22 History mL) subcutaneous pen (Lantus Solostar U-100 Insulin) levothyroxine 75 mcg capsule 75 mcg PO DAILY 11/10/22 12/18/22 History pantoprazole 40 mg tablet,delayed 40 mg PO DAILY 11/10/22 12/18/22 History release tizanidine 4 mg capsule 4 mg PO QID 11/10/22 12/18/22 History atorvastatin 20 mg tablet (Lipitor) 20 mg PO QPM 12/07/22 12/18/22 History carvedilol 12.5 mg tablet 12.5 mg PO BID 12/07/22 12/18/22 History diltiazem HCl 60 mg 60 mg PO BID 12/07/22 12/18/22 History capsule,extended release 12 hr spironolactone 25 mg tablet 12.5 mg PO QAM 12/07/22 12/18/22 History food supplemt, lactose-reduced 1 ea feeding tube Q4H #5,688 mL 12/08/22 12/18/22 Rx 0.04 gram-1.05 kcal/mL oral liquid (Ensure Original) calcitonin (salmon) 200 1 spray intranasal (ALT) DAILY 12/18/22 12/18/22 History unit/actuation nasal spray cefdinir 300 mg capsule 600 mg PO QDAY 12/18/22 12/18/22 History ferrous sulfate 220 mg (44 mg 220 mg PO QDAY 12/18/22 12/18/22 History iron)/5 mL oral elixir ondansetron 4 mg disintegrating 4 mg PO QID PRN nausea and vomiting 12/18/22 12/18/22 History tablet pramipexole 0.5 mg tablet (Mirapex) 0.5 mg PO QPM 12/18/22 12/18/22 History prednisone 20 mg tablet 20 mg PO QDAY 12/18/22 12/18/22 History Allergies Allergy/AdvReac Type Severity Reaction Status Date / Time No Known Drug Allergies Allergy Verified 12/07/22 02:27 Exam Constitutional Vital Signs, click to edit/add: Last Vital Signs Temp 98.5 F 12/19/22 06:00 Pulse 89 12/19/22 08:21 Resp 16 12/19/22 06:00 BP 124/63 12/19/22 06:00 Pulse Ox 94 L 12/19/22 06:00 O2 Del Method Room Air 12/19/22 06:00 O2 Flow Rate 2 12/18/22 22:57 Common normals: apparent distress General appearance: ill appearing Nutritional appearance: cachectic and underweight Orientation/consciousness: Yes lethargic HENMT Common normals: normocephalic Chest Common normals: inspection of chest normal Respiratory Common normals: abnormal respiratory effort Effort & inspection: tachypneic Auscultation: rhonchi Cardio Common normals: regular rate, regular rhythm and no murmurs GI Common normals: Normal to inspection, nondistended, normoactive bowel sounds present (PEG tube in place) Results Labs Labs: Short CBC 12/18/22 12/19/22 Range/Units 13:50 04:25 WBC 4.8 5.1 (4.0-11.0) 10^3/uL Hgb 10.0 L 9.3 L (14.0-18.0) g/dL Hct 30.2 L 28.8 L (42.0-54.0) % Plt Count 233 215 (150-450) 10^3/uL BMP 12/18/22 12/19/22 13:50 04:25 Sodium 139 138 Potassium 4.3 4.8 Chloride 104 104 Carbon Dioxide 26.4 25.1 BUN 52.0 H 51.0 H Creatinine 1.23 1.16 Glucose 247 H 377 H Calcium 8.2 L 8.3 L Cardiac Enzymes 12/18/22 Range/Units 13:50 Total Creatine Kinase 40 (39-308) U/L CK-MB (CK-2) 2.02 (<=3.60) ng/mL Liver Function 12/18/22 12/19/22 Range/Units 13:50 04:25 Total Bilirubin 0.3 0.4 (0.2-1.0) mg/dL AST 15 12 L (15-37) U/L ALT 20 18 (16-63) U/L Alkaline Phosphatase 206 H 157 H (46-116) U/L Albumin 2.2 L 2.2 L (3.4-5.0) g/dL Urine 12/18/22 Range/Units 23:05 Urine Color Yellow (YELLOW) Urine Clarity Clear (CLEAR) Urine pH 8.0 (5.0-9.0) Ur Specific [place] 1.015 (1.005-1.025) Urine Protein 100 A (NEG/TRACE) mg/dL Urine Glucose (UA) Negative (NEGATIVE) mg/dL Assessment and Plan Assessment and Plan (1) COPD (chronic obstructive pulmonary disease): (2) Hypomagnesemia: (3) Compression fracture of lumbar spine, non-traumatic: (4) Community acquired pneumonia: (5) Acute dehydration: Plan -Dehydration glycemia secondary to right lower lobe pneumonia complicating acute exacerbation of COPD. IV antibiotics, aerosols, try to obtain sputum sample. Iron deficiency anemia-monitor daily, hemoglobin down today, check occult blood, does have some maroon-colored stools as well.We will hold off on anticoagulants Atrial fibrillation-need to hold anticoagulants for now, rate controlled Lumbar compression fracture-continue with current medications, Add IV Dilaudid as needed History of head neck cancer, patient unable to swallow currently, change things to just PEG tube only. Patient unable to improve over the first 24 hours. With the pneumonia and dehydration persisting.Will require inpatient status change.Patient likely here 2-3 more days.
[2022-12-18] MEDS: TIZANIDINE HCL 4 MG TABLET PO (17:16)
[2022-12-18 17:34] LABS: Lactate/Lactic Acid 2.3 mmol/L (0.4-2.0)
[2022-12-18] MEDS: METHYLPREDNISOLONE SOD SUCC PF 125 MG/2 ML VIAL IVP (18:36)
[2022-12-18] MEDS: HYOSCYAMINE SULFATE 0.125 MG TAB.SUBL SL (18:38)
[2022-12-18] MEDS: BENZONATATE 100 MG CAPSULE 200 MG PO (18:39)
[2022-12-18] MEDS: LACTATED RINGER'S SOLUTION 1,000 ML 100 ML IV (18:39)
[2022-12-18] MEDS: PIPERACILLIN SODIUM/TAZOBACTAM 3.375 GM in 0.9 % SODIUM CHLORIDE 50 ML IV (18:46)
[2022-12-18] MEDS: INSULIN ASPART 300 UNIT/3 ML PEN SUBQ (19:34)
[2022-12-18 19:39] LABS: Glucometer 290 mg/dL (74-106)
[2022-12-18] MEDS: PRAMIPEXOLE 1 MG TABLET 0.5 MG PO (21:16)
[2022-12-18] MEDS: CARVEDILOL 12.5 MG TABLET PO (21:16)
[2022-12-18] MEDS: APIXABAN 5 MG TABLET 2.5 MG PO (21:18)
[2022-12-18] MEDS: ATORVASTATIN CALCIUM 20 MG TABLET PO (21:20)
[2022-12-18] MEDS: LACTULOSE 10 GM/15 ML SOLUTION PO (21:47)
[2022-12-18] MEDS: L. ACIDOPHILUS/L.BULGARICUS 1 PACKET GRAN.PACK PO (21:48)
[2022-12-18] MEDS: PROSTAT 15 GM PROTEIN/100 CAL 30 ML LIQUID PACKET FEED TUBE (21:48)
[2022-12-18 23:19] LABS: Bilirubin Urine NEGATIVE (NEGATIVE); Blood Urine NEGATIVE (NEGATIVE); Clarity Urine CLEAR (CLEAR); Color Urine YELLOW (YELLOW); Glucose Urine UA NEGATIVE (NEGATIVE); Ketones Urine NEGATIVE (NEGATIVE); Leukocyte Esterase Urine NEGATIVE (NEGATIVE); Nitrite Urine NEGATIVE (NEGATIVE); Protein Urine 100 mg/dL (NEG/TRACE); Specific Gravity Urine 1.015 (1.005-1.025); Urobilinogen Urine 0.2 EU/dL (0.2-1.0)
[2022-12-18 23:26] LABS: Bacteria Urine NONE SEEN #/HPF (NONE SEEN); Cast Seen? NONE SEEN #/LPF (NONE SEEN); Crystals Seen? None Seen #/HPF (None Seen); Mucus Urine NONE SEEN (NONE SEEN); RBC Urine NONE SEEN #/HPF (0-2); Squamous Epithelial Cell Urine RARE #/LPF (NONE/RARE); Urine Culture Indicated NO; WBC Urine NONE SEEN #/HPF (NONE SEEN)
[2022-12-19] VITALS (18 sets, daily range): BP systolic 124–125; BP diastolic 57–63; PULSE 61–106; RESP 16–20; TEMP 36.9–37.1; O2SAT 91–95
[2022-12-19] MEDS: METHYLPREDNISOLONE SOD SUCC PF 125 MG/2 ML VIAL IVP (00:09)
[2022-12-19] MEDS: PIPERACILLIN SODIUM/TAZOBACTAM 3.375 GM in 0.9 % SODIUM CHLORIDE 50 ML IV ×3 (02:21→17:30)
[2022-12-19 04:55] LABS: Basophils Absolute Auto 0.1 10^3/uL (0.0-0.1); Basophils Percent Auto 1.4 % (0.2-2.0); Hematocrit 28.8 % (42.0-54.0); Hemoglobin 9.3 g/dL (14.0-18.0); Immature Granulocytes Abs Auto 0.68 10^3/uL (0.00-0.03); Immature Granulocytes Pct Auto 13.3 % (0.0-0.5); Lymphocytes Absolute Auto 0.4 10^3/uL (1.2-3.8); Lymphocytes Percent Auto 7.3 % (20.5-60.0); Mean Corpuscular HGB Conc 32.3 g/dL (29.9-35.2); Mean Corpuscular Hemoglobin 31.1 pg (25.9-34.0); Mean Corpuscular Volume 96.3 fL (80.0-94.0); Mean Platelet Volume 10.1 fL (9.5-13.5); Monocytes Absolute Auto 0.1 10^3/uL (0.3-0.8); Monocytes Percent Auto 2.5 % (1.7-12.0); Neutrophils Absolute Auto 3.9 10^3/uL (1.4-6.5); Neutrophils Percent Auto 75.5 % (43.0-75.0); Platelet Count 215 10^3/uL (150-450); Red Blood Count 2.99 10^6/uL (4.70-6.10); Red Cell Distribution Width 15.4 % (11.0-15.0); White Blood Count 5.1 10^3/uL (4.0-11.0)
[2022-12-19] MEDS: IPRATROPIUM/ALBUTEROL SULFATE 3 ML AMPUL.NEB IH ×4 (05:13→22:01)
[2022-12-19 05:16] LABS: Alanine Aminotransferase 18 U/L (16-63); Albumin Globulin Ratio 0.7; Albumin Level 2.2 g/dL (3.4-5.0); Alkaline Phosphatase 157 U/L (46-116); Anion Gap 13.7; Aspartate Amino Transferase 12 U/L (15-37); Bilirubin Total 0.4 mg/dL (0.2-1.0); Calcium 8.3 mg/dL (8.5-10.1); Carbon Dioxide 25.1 mmol/L (21.0-32.0); Chloride 104 mmol/L (98-107); Estimated GFR (African America >60 (>=60); Estimated GFR (Non-African Ame >60 (>=60); Globulin 3.1 g/dL; Glucose 377 mg/dL (74-106); Potassium 4.8 mmol/L (3.5-5.1); Sodium 138 mmol/L (136-145); Total Protein 5.3 g/dL (6.4-8.2)
[2022-12-19] MEDS: METHYLPREDNISOLONE SOD SUCC PF 125 MG/2 ML VIAL 60 MG IVP ×3 (06:56→17:31)
[2022-12-19] MEDS: HYDROMORPHONE HCL 0.5 MG/0.5 ML SYRINGE 1 MG IV ×2 (06:57→19:38)
[2022-12-19] MEDS: LACTATED RINGER'S SOLUTION 1,000 ML 100 ML IV ×2 (07:14→15:51)
[2022-12-19 07:24] LABS: Ammonia 45 umol/L (11-32)
[2022-12-19 07:59] LABS: Partial Thromboplastin Time 23.8 sec (22.3-36.2); Prothrombin Time 9.5 sec (9.0-11.6)
[2022-12-19 08:00] LABS: INR <0.93
[2022-12-19] MEDS: INSULIN ASPART 300 UNIT/3 ML PEN SUBQ ×4 (08:18→22:30)
--- NOTE | 2022-12-19 09:19 | P.PN_ITS ---
Progress Note: Subjective Subjective Interval history: Persisting weakness today. Exam Constitutional Vital Signs, click to edit/add: Last Vital Signs Temp 98.5 F 12/19/22 06:00 Pulse 89 12/19/22 08:21 Resp 16 12/19/22 06:00 BP 124/63 12/19/22 06:00 Pulse Ox 94 L 12/19/22 06:00 O2 Del Method Room Air 12/19/22 06:00 O2 Flow Rate 2 12/18/22 22:57 Common normals: apparent distress General appearance: ill appearing Nutritional appearance: cachectic and underweight Orientation/consciousness: Yes lethargic HENMT Common normals: normocephalic Chest Common normals: inspection of chest normal Respiratory Common normals: abnormal respiratory effort Effort & inspection: tachypneic Auscultation: rhonchi Cardio Common normals: regular rate, regular rhythm and no murmurs GI Common normals: Normal to inspection, nondistended, normoactive bowel sounds present (PEG tube in place) Progress Note: Objective Labs Labs: Short CBC 12/18/22 12/19/22 Range/Units 13:50 04:25 WBC 4.8 5.1 (4.0-11.0) 10^3/uL Hgb 10.0 L 9.3 L (14.0-18.0) g/dL Hct 30.2 L 28.8 L (42.0-54.0) % Plt Count 233 215 (150-450) 10^3/uL BMP 12/18/22 12/19/22 13:50 04:25 Sodium 139 138 Potassium 4.3 4.8 Chloride 104 104 Carbon Dioxide 26.4 25.1 BUN 52.0 H 51.0 H Creatinine 1.23 1.16 Glucose 247 H 377 H Calcium 8.2 L 8.3 L Cardiac Enzymes 12/18/22 Range/Units 13:50 Total Creatine Kinase 40 (39-308) U/L CK-MB (CK-2) 2.02 (<=3.60) ng/mL Liver Function 12/18/22 12/19/22 Range/Units 13:50 04:25 Total Bilirubin 0.3 0.4 (0.2-1.0) mg/dL AST 15 12 L (15-37) U/L ALT 20 18 (16-63) U/L Alkaline Phosphatase 206 H 157 H (46-116) U/L Albumin 2.2 L 2.2 L (3.4-5.0) g/dL Urine 12/18/22 Range/Units 23:05 Urine Color Yellow (YELLOW) Urine Clarity Clear (CLEAR) Urine pH 8.0 (5.0-9.0) Ur Specific [place] 1.015 (1.005-1.025) Urine Protein 100 A (NEG/TRACE) mg/dL Urine Glucose (UA) Negative (NEGATIVE) mg/dL Progress Note: A&P Assessment and Plan (1) COPD (chronic obstructive pulmonary disease): (2) Compression fracture of lumbar spine, non-traumatic: (3) Hypomagnesemia: (4) Hypomagnesemia: Plan -Dehydration hyperglycemia secondary to right lower lobe pneumonia complicating acute exacerbation of COPD.? IV antibiotics, aerosols, try to obtain sputum sample.-So far oxygen levels are stable L Iron deficiency anemia-monitor daily, checking on stool occult blood.Continue to monitor hemoglobin closely Atrial fibrillation- continue to hold on anticoagulants l Lumbar compression fracture-continue with current medications, maintain current treatment h History of head neck cancer, patient unable to swallow currently, change things to just PEG tube only. Patient unable to improve over the first 24 hours.? With the pneumonia and dehydration persisting.Will require inpatient status change.Patient likely here 2-3 more days.
[2022-12-19 09:33] LABS: Hemoglobin 9.7 g/dL (14.0-18.0); Mean Corpuscular HGB Conc 32.3 g/dL (29.9-35.2); Mean Corpuscular Hemoglobin 31.4 pg (25.9-34.0); Mean Corpuscular Volume 97.1 fL (80.0-94.0); Mean Platelet Volume 10.3 fL (9.5-13.5); Platelet Count 233 10^3/uL (150-450); Red Blood Count 3.09 10^6/uL (4.70-6.10); Red Cell Distribution Width 15.6 % (11.0-15.0); White Blood Count 5.9 10^3/uL (4.0-11.0)
[2022-12-19] MEDS: INSULIN DETEMIR 300 UNIT/3 ML INSULN.PEN 30 UNIT SUBQ (09:36)
[2022-12-19] MEDS: PANTOPRAZOLE SODIUM 40 MG VIAL IV (09:36)
[2022-12-19] MEDS: ORPHENADRINE 60 MG/ 2 ML VIAL IV ×2 (09:36→22:11)
[2022-12-19 09:43] LABS: Lymphocytes Absolute Manual 0.29 10^3/uL (1.20-3.80); Metamyelocytes Absolute Manual 0.11; Monocytes Absolute Manual 0.17 10^3/uL (0.30-0.80); Segmented Neut Absolute Manual 4.72 10^3/uL (1.4-6.5)
[2022-12-19 09:44] LABS: Anisocytosis 1+
[2022-12-19] MEDS: CARVEDILOL 12.5 MG TABLET PO (11:07)
[2022-12-19] MEDS: LACTULOSE 10 GM/15 ML SOLUTION PO ×2 (11:07→21:59)
[2022-12-19] MEDS: FINASTERIDE 5 MG TABLET PO (11:08)
[2022-12-19 11:17] LABS: Basophils Absolute Auto 0.1 10^3/uL (0.0-0.1); Hematocrit 31.2 % (42.0-54.0); Immature Granulocytes Abs Auto 0.74 10^3/uL (0.00-0.03); Immature Granulocytes Pct Auto 12.8 % (0.0-0.5); Lymphocytes Absolute Auto 0.3 10^3/uL (1.2-3.8); Lymphocytes Percent Auto 5.2 % (20.5-60.0); Mean Corpuscular HGB Conc 32.1 g/dL (29.9-35.2); Mean Corpuscular Hemoglobin 31.4 pg (25.9-34.0); Mean Corpuscular Volume 98.1 fL (80.0-94.0); Mean Platelet Volume 9.7 fL (9.5-13.5); Monocytes Absolute Auto 0.2 10^3/uL (0.3-0.8); Monocytes Percent Auto 3.1 % (1.7-12.0); Neutrophils Absolute Auto 4.5 10^3/uL (1.4-6.5); Neutrophils Percent Auto 77.9 % (43.0-75.0); Platelet Count 205 10^3/uL (150-450); Red Blood Count 3.18 10^6/uL (4.70-6.10); Red Cell Distribution Width 15.5 % (11.0-15.0); White Blood Count 5.8 10^3/uL (4.0-11.0)
[2022-12-19 11:35] LABS: Glucometer 422 mg/dL (74-106)
[2022-12-19 15:01] LABS: Occult Blood Positive
[2022-12-19 16:12] LABS: Glucometer 170 mg/dL (74-106)
[2022-12-19] MEDS: CARVEDILOL 12.5 MG TABLET 6.25 MG PO (22:00)
[2022-12-19] MEDS: PRAMIPEXOLE 1 MG TABLET 0.5 MG PO (22:18)
[2022-12-19 22:34] LABS: Glucometer 413 mg/dL (74-106)
[2022-12-20] VITALS (20 sets, daily range): BP systolic 125–165; BP diastolic 57–75; PULSE 60–104; RESP 1–20; TEMP 36.6–37.1; O2SAT 91–98
[2022-12-20] MEDS: DILTIAZEM HCL 60 MG TABLET 30 MG PO ×3 (00:58→21:33)
[2022-12-20] MEDS: METHYLPREDNISOLONE SOD SUCC PF 125 MG/2 ML VIAL 60 MG IVP ×4 (01:15→23:40)
[2022-12-20] MEDS: LACTATED RINGER'S SOLUTION 1,000 ML 100 ML IV ×2 (01:21→13:25)
[2022-12-20] MEDS: PIPERACILLIN SODIUM/TAZOBACTAM 3.375 GM in 0.9 % SODIUM CHLORIDE 50 ML IV ×3 (03:20→18:35)
[2022-12-20 05:10] LABS: Basophils Percent Auto 0.4 % (0.2-2.0); Hematocrit 26.8 % (42.0-54.0); Hemoglobin 9.2 g/dL (14.0-18.0); Immature Granulocytes Abs Auto 0.59 10^3/uL (0.00-0.03); Immature Granulocytes Pct Auto 6.5 % (0.0-0.5); Lymphocytes Absolute Auto 0.5 10^3/uL (1.2-3.8); Lymphocytes Percent Auto 5.3 % (20.5-60.0); Mean Corpuscular HGB Conc 34.3 g/dL (29.9-35.2); Mean Corpuscular Hemoglobin 32.3 pg (25.9-34.0); Monocytes Absolute Auto 0.4 10^3/uL (0.3-0.8); Monocytes Percent Auto 4.6 % (1.7-12.0); Neutrophils Absolute Auto 7.5 10^3/uL (1.4-6.5); Neutrophils Percent Auto 83.2 % (43.0-75.0); Platelet Count 225 10^3/uL (150-450); Red Blood Count 2.85 10^6/uL (4.70-6.10); Red Cell Distribution Width 15.4 % (11.0-15.0)
[2022-12-20 05:24] LABS: Ammonia 36 umol/L (11-32)
[2022-12-20 05:30] LABS: Alanine Aminotransferase 19 U/L (16-63); Albumin Globulin Ratio 0.7; Albumin Level 2.2 g/dL (3.4-5.0); Alkaline Phosphatase 170 U/L (46-116); Anion Gap 11.3; Aspartate Amino Transferase 15 U/L (15-37); BUN Creatinine Ratio 47.4; Bilirubin Total 0.3 mg/dL (0.2-1.0); Calcium 8.5 mg/dL (8.5-10.1); Carbon Dioxide 27.8 mmol/L (21.0-32.0); Chloride 105 mmol/L (98-107); Estimated GFR (African America >60 (>=60); Estimated GFR (Non-African Ame >60 (>=60); Globulin 3.1 g/dL; Glucose 292 mg/dL (74-106); Potassium 4.1 mmol/L (3.5-5.1); Sodium 140 mmol/L (136-145); Total Protein 5.3 g/dL (6.4-8.2)
[2022-12-20] MEDS: IPRATROPIUM/ALBUTEROL SULFATE 3 ML AMPUL.NEB IH ×4 (05:32→23:58)
[2022-12-20] MEDS: LEVOTHYROXINE SODIUM 75 MCG TABLET PO (06:17)
[2022-12-20] MEDS: CARVEDILOL 12.5 MG TABLET 6.25 MG PO ×2 (09:30→21:37)
[2022-12-20] MEDS: FINASTERIDE 5 MG TABLET PO (09:36)
[2022-12-20] MEDS: PANTOPRAZOLE SODIUM 40 MG VIAL IV (09:37)
[2022-12-20] MEDS: LACTULOSE 10 GM/15 ML SOLUTION PO ×2 (10:09→21:36)
[2022-12-20] MEDS: ORPHENADRINE 60 MG/ 2 ML VIAL IV ×2 (10:11→21:39)
[2022-12-20] MEDS: INSULIN DETEMIR 300 UNIT/3 ML INSULN.PEN 30 UNIT SUBQ (10:39)
[2022-12-20 11:37] LABS: Glucometer 452 mg/dL (74-106)
--- NOTE | 2022-12-20 11:41 | P.PN_ITS ---
Progress Note: Subjective Subjective Interval history: Pain persisting., More alert but some confusion overnight as well. Exam Constitutional Vital Signs, click to edit/add: Last Vital Signs Temp 98.0 F 12/20/22 06:00 Pulse 60 12/20/22 11:09 Resp 20 12/20/22 11:09 BP 160/71 H 12/20/22 09:32 Pulse Ox 98 12/20/22 11:09 O2 Del Method Nasal Cannula 12/20/22 11:09 O2 Flow Rate 2 12/20/22 11:09 Common normals: apparent distress General appearance: ill appearing Nutritional appearance: cachectic and underweight Orientation/consciousness: Yes lethargic HENMT Common normals: normocephalic Chest Common normals: inspection of chest normal Respiratory Common normals: abnormal respiratory effort Effort & inspection: tachypneic Auscultation: rhonchi Cardio Common normals: regular rate, regular rhythm and no murmurs GI Common normals: Normal to inspection, nondistended, normoactive bowel sounds present (PEG tube in place) Progress Note: Objective Labs Labs: Short CBC 12/20/22 Range/Units 04:57 WBC 9.0 (4.0-11.0) 10^3/uL Hgb 9.2 L (14.0-18.0) g/dL Hct 26.8 L (42.0-54.0) % Plt Count 225 (150-450) 10^3/uL BMP 12/20/22 04:57 Sodium 140 Potassium 4.1 Chloride 105 Carbon Dioxide 27.8 BUN 45.0 H Creatinine 0.95 Glucose 292 H Calcium 8.5 Liver Function 12/20/22 Range/Units 04:57 Total Bilirubin 0.3 (0.2-1.0) mg/dL AST 15 (15-37) U/L ALT 19 (16-63) U/L Alkaline Phosphatase 170 H (46-116) U/L Albumin 2.2 L (3.4-5.0) g/dL Progress Note: A&P Assessment and Plan (1) COPD (chronic obstructive pulmonary disease): (2) Compression fracture of lumbar spine, non-traumatic: (3) Hypomagnesemia: (4) Hypomagnesemia: Plan -Dehydration hyperglycemia secondary to right lower lobe pneumonia complicating acute exacerbation of COPD.? IV antibiotics, aerosols, try to obtain sputum sample.-So far oxygen levels are stable so will maintain current treatment plan Iron deficiency anemia-monitor daily, checking on stool occult blood.Continue to monitor hemoglobin closely-Hemoglobin down somewhat today.Does have positive heme stools. On PPI Atrial fibrillation- continue to hold on anticoagulants l Lumbar compression fracture- pain worse today, will increase frequency of the hydrocodone. This is confusion need to be careful with dosing. I generalized anxiety disorder- had [id number] low-dose Xanax History of head neck cancer, patient unable to swallow currently, change things to just PEG tube only. Patient unable to improve over the first 24 hours.? With the pneumonia and dehydration persisting.Will require inpatient status change.Patient likely here 2-3 more days.
[2022-12-20] MEDS: INSULIN ASPART 300 UNIT/3 ML PEN SUBQ ×2 (12:55→16:57)
[2022-12-20] MEDS: HYOSCYAMINE SULFATE 0.125 MG TAB.SUBL SL (13:24)
[2022-12-20] MEDS: NICOTINE 21 MG PATCH.TD24 TD (14:01)
[2022-12-20 17:00] LABS: Glucometer 218 mg/dL (74-106)
[2022-12-20] MEDS: APIXABAN 5 MG TABLET 2.5 MG PO (21:37)
[2022-12-20] MEDS: PRAMIPEXOLE 1 MG TABLET 0.5 MG PO (21:38)
[2022-12-20] MEDS: INSULIN DETEMIR 300 UNIT/3 ML INSULN.PEN 20 UNIT SUBQ (22:04)
[2022-12-20] MEDS: ALPRAZOLAM 0.25 MG TABLET PO (23:39)
[2022-12-21] VITALS (17 sets, daily range): BP systolic 165–175; BP diastolic 56–72; PULSE 63–99; RESP 16–20; TEMP 36.5–36.7; O2SAT 91–98; BMI 18.3
[2022-12-21 00:01] LABS: Glucometer 138 mg/dL (74-106)
[2022-12-21] MEDS: PIPERACILLIN SODIUM/TAZOBACTAM 3.375 GM in 0.9 % SODIUM CHLORIDE 50 ML IV ×3 (02:54→19:54)
[2022-12-21 04:55] LABS: Basophils Percent Auto 0.2 % (0.2-2.0); Hematocrit 27.2 % (42.0-54.0); Immature Granulocytes Abs Auto 0.36 10^3/uL (0.00-0.03); Immature Granulocytes Pct Auto 4.2 % (0.0-0.5); Lymphocytes Absolute Auto 0.4 10^3/uL (1.2-3.8); Lymphocytes Percent Auto 4.3 % (20.5-60.0); Mean Corpuscular HGB Conc 33.1 g/dL (29.9-35.2); Mean Corpuscular Volume 93.8 fL (80.0-94.0); Mean Platelet Volume 9.8 fL (9.5-13.5); Monocytes Absolute Auto 0.3 10^3/uL (0.3-0.8); Monocytes Percent Auto 3.7 % (1.7-12.0); Neutrophils Absolute Auto 7.5 10^3/uL (1.4-6.5); Neutrophils Percent Auto 87.6 % (43.0-75.0); Platelet Count 201 10^3/uL (150-450); Red Cell Distribution Width 15.2 % (11.0-15.0); White Blood Count 8.6 10^3/uL (4.0-11.0)
[2022-12-21 05:17] LABS: Ammonia 16 umol/L (11-32)
[2022-12-21] MEDS: IPRATROPIUM/ALBUTEROL SULFATE 3 ML AMPUL.NEB IH ×4 (05:18→22:54)
[2022-12-21 05:22] LABS: Alanine Aminotransferase 20 U/L (16-63); Albumin Globulin Ratio 0.8; Albumin Level 2.3 g/dL (3.4-5.0); Alkaline Phosphatase 156 U/L (46-116); Anion Gap 11.4; Aspartate Amino Transferase 17 U/L (15-37); BUN Creatinine Ratio 47.7; Bilirubin Total 0.3 mg/dL (0.2-1.0); Calcium 8.4 mg/dL (8.5-10.1); Carbon Dioxide 26.1 mmol/L (21.0-32.0); Chloride 108 mmol/L (98-107); Estimated GFR (African America >60 (>=60); Estimated GFR (Non-African Ame >60 (>=60); Globulin 2.9 g/dL; Glucose 76 mg/dL (74-106); Potassium 3.5 mmol/L (3.5-5.1); Sodium 142 mmol/L (136-145); Total Protein 5.2 g/dL (6.4-8.2)
[2022-12-21] MEDS: HYDRALAZINE HCL 20 MG/ML VIAL 10 MG IVP ×2 (06:22→22:01)
[2022-12-21] MEDS: METHYLPREDNISOLONE SOD SUCC PF 125 MG/2 ML VIAL 60 MG IVP (06:23)
[2022-12-21] MEDS: LEVOTHYROXINE SODIUM 75 MCG TABLET PO (06:23)
[2022-12-21] MEDS: PANTOPRAZOLE SODIUM 40 MG VIAL IV (08:58)
[2022-12-21] MEDS: LACTULOSE 10 GM/15 ML SOLUTION PO ×2 (09:19→20:49)
[2022-12-21] MEDS: HYOSCYAMINE SULFATE 0.125 MG TAB.SUBL SL ×3 (09:19→16:00)
[2022-12-21] MEDS: DILTIAZEM HCL 60 MG TABLET 30 MG PO ×2 (09:19→20:51)
[2022-12-21] MEDS: FINASTERIDE 5 MG TABLET PO (09:19)
[2022-12-21] MEDS: CARVEDILOL 12.5 MG TABLET PO ×2 (09:20→20:50)
[2022-12-21] MEDS: APIXABAN 5 MG TABLET 2.5 MG PO ×2 (09:20→20:50)
[2022-12-21] MEDS: INSULIN DETEMIR 300 UNIT/3 ML INSULN.PEN 20 UNIT SUBQ (09:21)
[2022-12-21] MEDS: VANCOMYCIN HCL 750 MG in 0.9 % SODIUM CHLORIDE 250 ML 250 MG IV ×2 (09:22→21:47)
[2022-12-21] MEDS: ORPHENADRINE 60 MG/ 2 ML VIAL IV ×2 (09:24→20:45)
--- NOTE | 2022-12-21 09:40 | P.PN_ITS ---
Progress Note: Subjective Subjective Interval history: Awake, alert, answers questions appropriately Exam Constitutional Vital Signs, click to edit/add: Last Vital Signs Temp 98.1 F 12/21/22 06:00 Pulse 74 12/21/22 07:59 Resp 18 12/21/22 06:00 BP 175/72 H 12/21/22 06:22 Pulse Ox 98 12/21/22 06:00 O2 Del Method Room Air 12/21/22 06:00 O2 Flow Rate 2 12/20/22 11:09 Common normals: apparent distress General appearance: ill appearing Nutritional appearance: cachectic and underweight Orientation/consciousness: Yes lethargic HENMT Common normals: normocephalic Chest Common normals: inspection of chest normal Respiratory Common normals: normal respiratory effort Effort & inspection: non tachypneic Auscultation: rhonchi and wheezes Cardio Common normals: regular rate, regular rhythm and no murmurs GI Common normals: Normal to inspection, nondistended, normoactive bowel sounds present (PEG tube in place) Progress Note: Objective Labs Labs: Short CBC 12/21/22 Range/Units 04:40 WBC 8.6 (4.0-11.0) 10^3/uL Hgb 9.0 L (14.0-18.0) g/dL Hct 27.2 L (42.0-54.0) % Plt Count 201 (150-450) 10^3/uL BMP 12/21/22 04:40 Sodium 142 Potassium 3.5 Chloride 108 H Carbon Dioxide 26.1 BUN 41.0 H Creatinine 0.86 Glucose 76 Calcium 8.4 L Liver Function 12/21/22 Range/Units 04:40 Total Bilirubin 0.3 (0.2-1.0) mg/dL AST 17 (15-37) U/L ALT 20 (16-63) U/L Alkaline Phosphatase 156 H (46-116) U/L Albumin 2.3 L (3.4-5.0) g/dL Progress Note: A&P Assessment and Plan (1) COPD (chronic obstructive pulmonary disease): (2) Compression fracture of lumbar spine, non-traumatic: (3) Hypomagnesemia: (4) Hypomagnesemia: Plan -Dehydration hyperglycemia secondary to right lower lobe pneumonia complicating acute exacerbation of COPD with acute hypoxxic res failure.? IV antibiotics, aerosols, try to obtain sputum sample.-obtunded at times - but this am pretty good - sputum tennille caban -= added ab Iron deficiency anemia-monitor daily, checking on stool occult blood.Continue to monitor hemoglobin closely-maintyain ppi Atrial fibrillation- continue to hold on anticoagulants l Lumbar compression fracture- need to watch pain meds as has had confusion in the pst generalized anxiety disorder- had xtqrne-yeg-mkant low-dose Xanax History of head neck cancer, patient unable to swallow currently, change things to just PEG tube only. with possible MRSA - likely 2-3 more hospital days - discuss placement for rehab with family. should be ready by raphael rawls week
--- NOTE | 2022-12-21 09:46 | CM.NOTE ---
Rounds made with Dr. Murphy. No plan for discharge today.
--- NOTE | 2022-12-21 11:02 | REH.PTDLY ---
Physical Therapy Daily Note PT Daily Note/Assess Start: 12/21/22 10:52 Freq: Status: Active Protocol: Document 12/21/22 10:53 ANASTACIA (Rec: 12/21/22 11:02 ANASTACIA [id number]) Physical Therapy Daily Note/Assessment Time In 09:55 Time Out 10:10 Subjective Pt in chair and ready to get back to bed, states bottom hurts. Therapeutic Activity Minutes (minutes) 12 Therapeutic Activity Units 1 Bed Mobility Ability Independent Chair Transfer Ability Minimum Assist Therapeutic Activity Comments Cues with sit to stand transfers for pt to push from chair with Lars. Gait with RW from chair to bed CGA. Cues to pt to keep holding onto RW as he pushes it to the side and flexed forward at trunk to reach for bed in front of him. Pt then turns and plops into bed. Ind with sit to supine transfers. Pt reports he needs his brief changed. Nurses aide enters room and cues for pt to perform bridging and rolling. side to side. Pt uses assist of bed rail for rolling. Declines exs due to pain and pressure on bottom sore. Total Therapy Minutes 12 Total Physical Therapy Units 1 Daily Note Summary Pt performed transfers only per request with cues for pt to do so safely. Fatigues easily with transfers.
[2022-12-21] MEDS: INSULIN ASPART 300 UNIT/3 ML PEN SUBQ ×2 (11:38→16:00)
[2022-12-21] MEDS: CLOPIDOGREL BISULFATE 75 MG TABLET PO (13:39)
--- NOTE | 2022-12-21 13:48 | SWNOTE1 ---
SW reviewed therapy notes and recommendation is HH versus SNF. SW to talk with pt.
--- NOTE | 2022-12-21 13:58 | SWNOTE1 ---
SW spoke with pt about his discharge plans. Pt did voice he is not feeling well. Pt does live at home with his daughter and ex-. Pt has a peg tube and uses a walker at home. SW did talk with pt about rehab and possibly needing rehab to get stronger. Pt stated he can't get from bed to couch. SW expressed to patient that is why he would benefit from going to rehab at a facility to get stronger. Pt shook his head no. ANTONIA asked pt why he does not want to go, pt did not give an answer. ANTONIA explained to pt that we would have to get approval from insurance company for him to go. SW asked if his daughter still worked and he stated no. SW asked if pt was agreeable to try rehab? Pt stated no. ANTONIA asked to call pt's daughter to talk with her about rehab and he stated that is fine. Pt then asked for his nurse and wanted a pain pill. ANTONIA updated nursing and will call daughter.
--- NOTE | 2022-12-21 14:12 | SWNOTE1 ---
ANTONIA spoke with pt's daughter, Riddhi, in regards to pt possibly needing to go to rehab for a short time as he continues to get weaker. Riddhi did voice she spoke with Dr. Murphy and they spoke about the [facility]. SW let her know the [facility] does not usually take anthem, it is case by case and they would have to cost it out. ANTONIA expressed it is unlikely [facility] would accommodate. SW let her know [facility] is in network. Riddhi stated Dr. Murphy said he may not be there anymore. Riddhi voiced she will have to call her sister and get back to SW. ANTONIA expressed that pt is a precert and would like to get things started as it may take a few days to get the insurance approval for SNF. At this time family is going to discuss and then touch base with SW tomorrow morning. SW also let her know that at this time pt is not agreeing to rehab.
--- NOTE | 2022-12-21 20:00 | DIETREC ---
Nutrition Recommendations: 1) Change tube feeding order to Glucerna 1.5 1 bottle Q 4 hours 2) Flush with 30 mL water before and after each bolus feed 3) Recommend additional 250 mL free water Q [address] following
[2022-12-21] MEDS: PRAMIPEXOLE 1 MG TABLET 0.5 MG PO (20:51)
[2022-12-21] MEDS: ALPRAZOLAM 0.25 MG TABLET PO (21:48)
[2022-12-22] VITALS (21 sets, daily range): BP systolic 124–171; BP diastolic 64–81; PULSE 64–99; RESP 16–20; TEMP 36.5–37.2; O2SAT 91–96
[2022-12-22] MEDS: PIPERACILLIN SODIUM/TAZOBACTAM 3.375 GM in 0.9 % SODIUM CHLORIDE 50 ML IV (01:41)
[2022-12-22] MEDS: INSULIN DETEMIR 300 UNIT/3 ML INSULN.PEN 20 UNIT SUBQ ×2 (01:56→09:23)
[2022-12-22 05:05] LABS: Hematocrit 29.4 % (42.0-54.0); Hemoglobin 9.7 g/dL (14.0-18.0); Mean Corpuscular Hemoglobin 31.8 pg (25.9-34.0); Mean Corpuscular Volume 96.4 fL (80.0-94.0); Mean Platelet Volume 9.7 fL (9.5-13.5); Platelet Count 190 10^3/uL (150-450); Red Blood Count 3.05 10^6/uL (4.70-6.10); Red Cell Distribution Width 15.4 % (11.0-15.0); White Blood Count 10.2 10^3/uL (4.0-11.0)
[2022-12-22] MEDS: IPRATROPIUM/ALBUTEROL SULFATE 3 ML AMPUL.NEB IH ×4 (05:06→22:14)
[2022-12-22 05:16] LABS: Alanine Aminotransferase 23 U/L (16-63); Albumin Globulin Ratio 0.7; Alkaline Phosphatase 231 U/L (46-116); Anion Gap 14.7; Aspartate Amino Transferase 17 U/L (15-37); BUN Creatinine Ratio 36.6; Bilirubin Total 0.3 mg/dL (0.2-1.0); Calcium 8.3 mg/dL (8.5-10.1); Carbon Dioxide 23.1 mmol/L (21.0-32.0); Chloride 102 mmol/L (98-107); Estimated GFR (African America >60 (>=60); Estimated GFR (Non-African Ame >60 (>=60); Globulin 2.9 g/dL; Glucose 285 mg/dL (74-106); Potassium 3.8 mmol/L (3.5-5.1); Sodium 136 mmol/L (136-145); Total Protein 4.9 g/dL (6.4-8.2)
[2022-12-22 05:26] LABS: Lymphocytes Absolute Manual 0.71 10^3/uL (1.20-3.80); Monocytes Absolute Manual 0.91 10^3/uL (0.30-0.80); Nucleated Red Blood Cells 1; Segmented Neut Absolute Manual 8.56 10^3/uL (1.4-6.5)
[2022-12-22 05:36] LABS: Ammonia 44 umol/L (11-32)
[2022-12-22] MEDS: ALPRAZOLAM 0.25 MG TABLET PO ×3 (05:57→21:06)
[2022-12-22] MEDS: LEVOTHYROXINE SODIUM 75 MCG TABLET PO (05:57)
--- NOTE | 2022-12-22 08:46 | CM.NOTE ---
Important Message From Medicare discussed with pt, pt verbalizes understanding and signs paper. Original given to pt and copy placed on pt's chart.
[2022-12-22] MEDS: LACTULOSE 10 GM/15 ML SOLUTION PO ×3 (09:18→16:33)
[2022-12-22] MEDS: DILTIAZEM HCL 60 MG TABLET 30 MG PO ×2 (09:18→21:07)
[2022-12-22] MEDS: CARVEDILOL 12.5 MG TABLET 25 MG PO ×2 (09:19→20:37)
[2022-12-22] MEDS: HYOSCYAMINE SULFATE 0.125 MG TAB.SUBL SL ×3 (09:19→16:33)
[2022-12-22] MEDS: FINASTERIDE 5 MG TABLET PO (09:20)
[2022-12-22] MEDS: APIXABAN 5 MG TABLET 2.5 MG PO ×2 (09:21→20:36)
[2022-12-22] MEDS: INSULIN ASPART 300 UNIT/3 ML PEN SUBQ ×2 (09:22→12:18)
[2022-12-22] MEDS: PANTOPRAZOLE SODIUM 40 MG VIAL IV (09:41)
[2022-12-22] MEDS: ORPHENADRINE 60 MG/ 2 ML VIAL 30 MG IV ×2 (09:41→20:38)
[2022-12-22] MEDS: LINEZOLID IN DEXTROSE 5% 600 MG/300 ML PIGGYBACK 300 MG IV (09:41)
--- NOTE | 2022-12-22 09:45 | SWNOTE1 ---
Pt's daughter called and left message on case management phone and they have decided pt does need skilled. Their choices in order as follows; [facility], [facility], [facility], and [facility]. ANTONIA spoke with Herbert at [facility] and she said to send over and they will cost it out. Referral sent.
--- NOTE | 2022-12-22 10:13 | CM.NOTE ---
Rounds made with Dr. Murphy, discussed skilled therapy with pt. Pt would like to discuss things with his daughter. No discharge today.
--- NOTE | 2022-12-22 10:27 | P.PN_ITS ---
Progress Note: Subjective Subjective Interval history: Awake and oriented no complaints. Exam Constitutional Vital Signs, click to edit/add: Last Vital Signs Temp 98.5 F 12/22/22 04:54 Pulse 92 H 12/22/22 10:11 Resp 20 12/22/22 05:06 BP 171/77 H 12/22/22 04:54 Pulse Ox 91 L 12/22/22 05:06 O2 Del Method Room Air 12/22/22 05:06 O2 Flow Rate 2 12/20/22 11:09 Common normals: apparent distress General appearance: ill appearing Nutritional appearance: cachectic and underweight Orientation/consciousness: Yes lethargic HENMT Common normals: normocephalic Chest Common normals: inspection of chest normal Respiratory Common normals: normal respiratory effort Effort & inspection: non tachypneic Auscultation: rhonchi and wheezes Cardio Common normals: regular rate, regular rhythm and no murmurs GI Common normals: Normal to inspection, nondistended, normoactive bowel sounds present (PEG tube in place) Progress Note: Objective Labs Labs: Short CBC 12/22/22 Range/Units 04:51 WBC 10.2 (4.0-11.0) 10^3/uL Hgb 9.7 L (14.0-18.0) g/dL Hct 29.4 L (42.0-54.0) % Plt Count 190 (150-450) 10^3/uL BMP 12/22/22 04:51 Sodium 136 Potassium 3.8 Chloride 102 Carbon Dioxide 23.1 BUN 34.0 H Creatinine 0.93 Glucose 285 H Calcium 8.3 L Liver Function 12/22/22 Range/Units 04:51 Total Bilirubin 0.3 (0.2-1.0) mg/dL AST 17 (15-37) U/L ALT 23 (16-63) U/L Alkaline Phosphatase 231 H (46-116) U/L Albumin 2.0 L (3.4-5.0) g/dL Progress Note: A&P Assessment and Plan (1) COPD (chronic obstructive pulmonary disease): (2) Compression fracture of lumbar spine, non-traumatic: (3) Hypomagnesemia: (4) Hypomagnesemia: Plan -Dehydration hyperglycemia secondary to right lower lobe pneumonia complicating acute exacerbation of COPD with acute hypoxxic res failure.? Due to MRSA-we will adjust antibiotics today. Maintain aerosols. Antibiotic coverage for the MRSA related to started yesterday. Needs at least 1-2 more days of IV therapy secondary to recurrent admissions secondary to this pneumonia. Iron deficiency anemia-monitor daily, checking on stool occult blood.Continue to monitor hemoglobin closely-maintyain ppi Atrial fibrillation- rate is stable l Lumbar compression fracture- n unable to adjust pending pain medication further secondary to somnolence generalized anxiety disorder- had [id number] low-dose Xanax History of head neck cancer, patient unable to swallow currently, change things to just PEG tube only. 2 more hospital days for IV therapy secondary to the pneumonia.P.o. antibiotic of Bactrim may be effective at discharge.
--- NOTE | 2022-12-22 11:40 | SWNOTE1 ---
ANTONIA spoke with Herbert at [facility] and everything looks good for them to start precert. Her only concern is the antibiotics he may be on due to the sputum culture. Precert is started. ANTONIA spoke with pt in room. He was resting with eyes closed, but did wake up to converse with SW. SW asked pt if he knew where he was at, he stated [facility]. SW asked if he knew the year, he stated 2022. SW then asked the month, he stated November, SW let him know it was actually December 22 today. SW then spoke with him about going to the [facility] for rehab to get stronger prior to going home. Pt gave SW a thumbs down and stated no. SW then asked if he spoke with either of his daughters, he stated yesterday. SW let him know that his daughter Riddhi does want him to go to rehab to get stronger before coming home. Pt shook his head no. ANTONIA asked pt if he felt he was strong enough to return home, pt did not answer. ANTONIA again asked if he would be willing to try rehab at [facility] for a short time, possible a week or 2. Pt stated no. ANTONIA asked permission to call his daughter and pt was alright with this. SW called and spoke with Riddhi. ANTONIA asked if daughter could come to hospital to meet with pt and SW in room to discuss dc plans. ANTONIA advised since pt is alert and oriented, SW cannot force pt to go to rehab. Daughter will be coming in around 2:30 today to meet with pt and SW in room. ANTONIA updated doctor.
[2022-12-22] MEDS: CLOPIDOGREL BISULFATE 75 MG TABLET PO (13:24)
[2022-12-22] MEDS: DEXTROSE/DEXTRIN/MALTOSE 31 GM GEL.INSTANT GLUCOSE PO (15:12)
[2022-12-22 15:26] LABS: Glucometer 48 mg/dL (74-106)
[2022-12-22 15:29] LABS: Glucometer 70 mg/dL (74-106)
--- NOTE | 2022-12-22 15:36 | SWNOTE1 ---
ANTONIA had a very in depth conversation with daughter Riddhi, , and other daughter that lives in [place]. We discussed all options for discharge planning. We discussed adding a home health aide to his current HH, we discussed private caregivers and a private caregiver list was given to family, we discussed [facility], and we discussed hospice as well. At this time family is not sure [facility] is the best choice as they are doing everything at home that the [facility] would do and concern is he would only get approved for so many days and then be discharged home. Hospice was discussed as well and family is open to meeting with them tomorrow morning , family would like [facility]. Referral has been sent. ANTONIA also spoke with them about passport services, as the daughter inquired. ANTONIA gave family phone number for passport for them to contact. ANTONIA updated doctor with the plan and request for hospice order. Nursing updated as well.
--- NOTE | 2022-12-22 15:39 | P.CN_ITS ---
agreed Consult Note: HPI Data of Consult Consult date: 12/22/22 Requesting Physician: Juvenal Murphy MD Primary Care Provider: Juvenal Murphy MD Consult Narrative Reason for consult: Coccyx ulcer cc:: CC: Juvenal Murphy MD [facility] Medical History (Updated 12/24/22 @ 05:36 by Juvenal Murphy MD) Surgical History (Updated 11/10/22 @ 12:02 by Ronnie Rosado) Social History (Updated 11/10/22 @ 15:16 by Rebecca Morocho) Smoking status: Heavy tobacco smoker Nicotine containing products detail: 66 1 pack per day Do you think of yourself as: straight/heterosexual Meds Home Medications and Allergies Home Medications Medication Instructions Recorded Confirmed Type albuterol sulfate 90 mcg/actuation 1 inh inhalation Q4H PRN shortness 11/10/22 12/18/22 History aerosol inhaler (ProAir HFA) of breath or wheezing apixaban 2.5 mg tablet (Eliquis) 2.5 mg PO BID 11/10/22 12/18/22 History budesonide 0.5 mg/2 mL suspension 0.5 mg inhalation BID 11/10/22 12/18/22 History for nebulization finasteride 5 mg tablet 5 mg PO DAILY 11/10/22 12/18/22 History hydrocodone 10 mg-acetaminophen 1 tab PO Q6H PRN pain 11/10/22 12/18/22 History 325 mg tablet insulin glargine 100 unit/mL (3 30 unit subcut DAILY 11/10/22 12/18/22 History mL) subcutaneous pen (Lantus Solostar U-100 Insulin) levothyroxine 75 mcg capsule 75 mcg PO DAILY 11/10/22 12/18/22 History pantoprazole 40 mg tablet,delayed 40 mg PO DAILY 11/10/22 12/18/22 History release tizanidine 4 mg capsule 4 mg PO QID 11/10/22 12/18/22 History atorvastatin 20 mg tablet (Lipitor) 20 mg PO QPM 12/07/22 12/18/22 History carvedilol 12.5 mg tablet 12.5 mg PO BID 12/07/22 12/18/22 History diltiazem HCl 60 mg 60 mg PO BID 12/07/22 12/18/22 History capsule,extended release 12 hr spironolactone 25 mg tablet 12.5 mg PO QAM 12/07/22 12/18/22 History food supplemt, lactose-reduced 1 ea feeding tube Q4H #5,688 mL 12/08/22 12/18/22 Rx 0.04 gram-1.05 kcal/mL oral liquid (Ensure Original) calcitonin (salmon) 200 1 spray intranasal (ALT) DAILY 12/18/22 12/18/22 History unit/actuation nasal spray ferrous sulfate 220 mg (44 mg 220 mg PO QDAY 12/18/22 12/18/22 History iron)/5 mL oral elixir ondansetron 4 mg disintegrating 4 mg PO QID PRN nausea and vomiting 12/18/22 12/18/22 History tablet pramipexole 0.5 mg tablet (Mirapex) 0.5 mg PO QPM 12/18/22 12/18/22 History prednisone 20 mg tablet 20 mg PO QDAY 12/18/22 12/18/22 History clopidogrel 75 mg tablet 75 mg PO QD #30 tabs 12/23/22 Rx lactulose 10 gram/15 mL (15 mL) 10 g (15 mL) PO TID 30 days #1,350 12/23/22 Rx oral solution mL linezolid 600 mg tablet 600 mg PO BID 10 days #20 tabs 12/23/22 Rx water for irrigation, sterile 250 ml G-tube TID 30 days #6,000 mL 12/23/22 Rx Allergies Allergy/AdvReac Type Severity Reaction Status Date / Time No Known Drug Allergies Allergy Verified 12/07/22 02:27 Exam Constitutional Vital Signs, click to edit/add: Last Vital Signs Temp 98.4 F 12/22/22 13:33 Pulse 70 12/22/22 13:49 Resp 18 12/22/22 13:33 BP 153/64 H 12/22/22 13:33 Pulse Ox 92 L 12/22/22 13:33 O2 Del Method Room Air 12/22/22 13:33 O2 Flow Rate 2 12/20/22 11:09 Results Labs Labs: Short CBC 12/22/22 Range/Units 04:51 WBC 10.2 (4.0-11.0) 10^3/uL Hgb 9.7 L (14.0-18.0) g/dL Hct 29.4 L (42.0-54.0) % Plt Count 190 (150-450) 10^3/uL BMP 12/22/22 04:51 Sodium 136 Potassium 3.8 Chloride 102 Carbon Dioxide 23.1 BUN 34.0 H Creatinine 0.93 Glucose 285 H Calcium 8.3 L Liver Function 12/22/22 Range/Units 04:51 Total Bilirubin 0.3 (0.2-1.0) mg/dL AST 17 (15-37) U/L ALT 23 (16-63) U/L Alkaline Phosphatase 231 H (46-116) U/L Albumin 2.0 L (3.4-5.0) g/dL Assessment and Plan Assessment and Plan (1) Compression fracture of lumbar spine, non-traumatic: Plan Patient seen for assessment of coccyx ulcer at 1235PM today. Patient able to assist to a side-lying position for assessment. Currently being treated with triad wound paste cream. Coccyx ulcer is a superficial, open area that measures 1.8cmx1.8cmx0.1cm. No s/sx of infection. Patient does verbalize that area is tender to touch. Bilateral heels are assessed as well and have slow to wilfredo erythema. Will elevate legs and float heels off bed to prevent any further breakdown. Recommendations: Triad wound paste to coccyx daily. Reapply as needed. Float heels off bed. Apply waffle air boots BLE. Continue to assess for further skin breakdown as patient is at high risk for pressure injury. Note and orders sent to Dr. Murphy for review.
[2022-12-22 15:40] LABS: Glucometer 61 mg/dL (74-106)
[2022-12-22] MEDS: DEXTROSE 50 %-WATER 25 GM/50 ML SYRINGE IV (15:43)
--- NOTE | 2022-12-22 15:44 | SWNOTE1 ---
Pt's blood sugar was low, nursing in room during conversation. Pt was lethargic at the time of conversation with family.
[2022-12-22 16:07] LABS: Glucometer 243 mg/dL (74-106)
--- NOTE | 2022-12-22 16:08 | PC.NURSE ---
[address]87 patient blood sugar dropped to 54. patient is easily aaroused. patient clammy. patient given 480 of oj per gtube. 1522 patient blood sugar is 48. patient given oral glucose. patient continues to to be easily aroused. 1530 potienty blood sugar is 70. patient alert but drowsy. patient is aware that family is visiting. 1540 patient blood sugar is 61. iv glucose pushed. 1606 patient blood sugar is 243. patient is dowsy but easily awoken. patient is no longer clammy.
[2022-12-22 20:22] LABS: Glucometer 348 mg/dL (74-106)
[2022-12-22] MEDS: PRAMIPEXOLE 1 MG TABLET 0.5 MG PO (20:36)
[2022-12-22] MEDS: LINEZOLID IN DEXTROSE 5% 600 MG/300 ML PIGGYBACK 150 MG IV (20:47)
[2022-12-22 21:12] LABS: Glucometer 106 mg/dL (74-106)
[2022-12-23] VITALS (22 sets, daily range): BP systolic 120–155; BP diastolic 67–73; PULSE 62–97; RESP 18–20; TEMP 36.2–36.9; O2SAT 90–96
[2022-12-23] MEDS: IPRATROPIUM/ALBUTEROL SULFATE 3 ML AMPUL.NEB IH ×4 (04:11→22:02)
[2022-12-23 05:39] LABS: Hematocrit 32.1 % (42.0-54.0); Hemoglobin 10.8 g/dL (14.0-18.0); Mean Corpuscular HGB Conc 33.6 g/dL (29.9-35.2); Mean Corpuscular Hemoglobin 31.7 pg (25.9-34.0); Mean Corpuscular Volume 94.1 fL (80.0-94.0); Mean Platelet Volume 9.8 fL (9.5-13.5); Platelet Count 198 10^3/uL (150-450); Red Blood Count 3.41 10^6/uL (4.70-6.10); Red Cell Distribution Width 15.3 % (11.0-15.0); White Blood Count 15.3 10^3/uL (4.0-11.0)
[2022-12-23] MEDS: LEVOTHYROXINE SODIUM 75 MCG TABLET PO (05:50)
[2022-12-23] MEDS: ALPRAZOLAM 0.25 MG TABLET PO ×2 (05:50→21:27)
[2022-12-23 05:59] LABS: Ammonia 31 umol/L (11-32)
[2022-12-23 06:03] LABS: Alanine Aminotransferase 19 U/L (16-63); Albumin Globulin Ratio 0.6; Alkaline Phosphatase 193 U/L (46-116); Anion Gap 12.2; Aspartate Amino Transferase 16 U/L (15-37); BUN Creatinine Ratio 34.1; Bilirubin Total 0.4 mg/dL (0.2-1.0); Calcium 8.2 mg/dL (8.5-10.1); Carbon Dioxide 23.5 mmol/L (21.0-32.0); Chloride 100 mmol/L (98-107); Estimated GFR (African America >60 (>=60); Estimated GFR (Non-African Ame >60 (>=60); Globulin 3.1 g/dL; Glucose 190 mg/dL (74-106); Potassium 4.7 mmol/L (3.5-5.1); Sodium 131 mmol/L (136-145); Total Protein 5.1 g/dL (6.4-8.2)
[2022-12-23 07:17] LABS: Band Neutrophils Absolute 0.3 10^3/uL (0.0-0.3); Eosinophils Absolute Manual 0.15 10^3/uL (0.00-0.70); Lymphocytes Absolute Manual 0.91 10^3/uL (1.20-3.80); Monocytes Absolute Manual 0.45 10^3/uL (0.30-0.80); Segmented Neut Absolute Manual 12.85 10^3/uL (1.4-6.5)
[2022-12-23] MEDS: PREDNISONE 20 MG TABLET PO (08:26)
[2022-12-23] MEDS: HYOSCYAMINE SULFATE 0.125 MG TAB.SUBL SL ×3 (08:26→16:41)
[2022-12-23] MEDS: FINASTERIDE 5 MG TABLET PO (08:26)
[2022-12-23] MEDS: CARVEDILOL 12.5 MG TABLET 25 MG PO (08:27)
[2022-12-23] MEDS: DILTIAZEM HCL 60 MG TABLET 30 MG PO ×2 (08:27→20:16)
[2022-12-23] MEDS: APIXABAN 5 MG TABLET 2.5 MG PO ×2 (08:28→20:16)
[2022-12-23] MEDS: PANTOPRAZOLE SODIUM 40 MG VIAL IV (08:29)
[2022-12-23] MEDS: ORPHENADRINE 60 MG/ 2 ML VIAL 30 MG IV ×2 (08:29→20:17)
[2022-12-23] MEDS: INSULIN DETEMIR 300 UNIT/3 ML INSULN.PEN 20 UNIT SUBQ ×2 (08:30→20:40)
[2022-12-23] MEDS: LACTULOSE 10 GM/15 ML SOLUTION PO ×3 (08:30→16:42)
[2022-12-23] MEDS: LINEZOLID IN DEXTROSE 5% 600 MG/300 ML PIGGYBACK 300 MG IV ×2 (08:34→20:16)
--- NOTE | 2022-12-23 09:34 | P.DS_ITS ---
DS: Providers Provider Date of admission: 12/19/22 12:38 Primary care physician: Juvenal Murphy MD Consults: 12/18/22 12:36 Occupational Therapy Eval and Treat Routine Physical Therapy Eval and Treat Routine 12/21/22 19:24 Consult to Wound Care Routine Consulting Provider: Choco Shen 12/22/22 Consult to Hospice Routine DS: Diagnosis Discharge Diagnosis (1) COPD (chronic obstructive pulmonary disease): (2) Compression fracture of lumbar spine, non-traumatic: (3) Hypomagnesemia: Plan -Dehydration hyperglycemia secondary to right lower lobe pneumonia complicating acute exacerbation of COPD with acute hypoxxic res failure.? Due to MRSA-we will adjust antibiotics today.? Maintain aerosols.? Antibiotic coverage for the MRSA related to started yesterday.? Needs at least 1-2 more days of IV therapy secondary to recurrent admissions secondary to this pneumonia. Iron deficiency anemia-monitor daily,? checking on stool occult blood.Continue to monitor hemoglobin closely-maintyain ppi Atrial fibrillation-? rate is stable l Lumbar compression fracture-? n unable to adjust pending pain medication further secondary to somnolence generalized anxiety disorder- had jmrbqj-xoz-jzdis low-dose Xanax History of head neck cancer, patient unable to swallow currently, change things to just PEG tube only. ?2 more hospital days for IV therapy secondary to the pneumonia.P.o. antibiotic of Bactrim may be effective at discharge. DS: Summary Time Spent with Patient Time attestation: Total time spent providing and/or coordinating discharge services: Exam Constitutional Vital Signs, click to edit/add: Last Vital Signs Temp 98.5 F 12/23/22 05:56 Pulse 89 12/23/22 08:14 Resp 18 12/23/22 05:56 BP 145/73 H 12/23/22 05:56 Pulse Ox 91 L 12/23/22 05:56 O2 Del Method Room Air 12/23/22 05:56 O2 Flow Rate 2 12/20/22 11:09 DS: Data Data Completed and Pending Labs on day of discharge: Labs from last 24 hours 12/23/22 12/22/22 12/22/22 05:20 21:03 20:02 WBC 15.3 H RBC 3.41 L Hgb 10.8 L Hct 32.1 L MCV 94.1 H MCH 31.7 MCHC 33.6 RDW 15.3 H Plt Count 198 MPV 9.8 Seg Neuts % (Manual) 84.0 Band Neutrophils % 2.0 Lymphocytes % (Manual) 6.0 L Monocytes % (Manual) 3.0 Eosinophils % (Manual) 1.0 Basophils % (Manual) 0.0 L Metamyelocytes % 2.0 Myelocytes % 2.0 Neutrophils # (Manual) 12.85 H Band Neutrophils # 0.3 Lymphocytes # (Manual) 0.91 L Monocytes # (Manual) 0.45 Eosinophils # (Manual) 0.15 Basophils # (Manual) 0.00 Metamyelocytes # 0.30 Myelocytes # 0.30 Sodium 131 L Potassium 4.7 Chloride 100 Carbon Dioxide 23.5 Anion Gap 12.2 BUN 28.0 H Creatinine 0.82 Est GFR ( Amer) >60 Est GFR (Non-Af Amer) >60 BUN/Creatinine Ratio 34.1 Glucose 190 H Calcium 8.2 L Total Bilirubin 0.4 AST 16 ALT 19 Alkaline Phosphatase 193 H Ammonia 31 Total Protein 5.1 L Albumin 2.0 L Globulin 3.1 Albumin/Globulin Ratio 0.6 POC Glucose 106 348 H 12/22/22 12/22/22 12/22/22 16:05 15:38 15:28 WBC RBC Hgb Hct MCV MCH MCHC RDW Plt Count MPV Seg Neuts % (Manual) Band Neutrophils % Lymphocytes % (Manual) Monocytes % (Manual) Eosinophils % (Manual) Basophils % (Manual) Metamyelocytes % Myelocytes % Neutrophils # (Manual) Band Neutrophils # Lymphocytes # (Manual) Monocytes # (Manual) Eosinophils # (Manual) Basophils # (Manual) Metamyelocytes # Myelocytes # Sodium Potassium Chloride Carbon Dioxide Anion Gap BUN Creatinine Est GFR ( Amer) Est GFR (Non-Af Amer) BUN/Creatinine Ratio Glucose Calcium Total Bilirubin AST ALT Alkaline Phosphatase Ammonia Total Protein Albumin Globulin Albumin/Globulin Ratio POC Glucose 243 H 61 L 70 L 12/22/22 15:20 WBC RBC Hgb Hct MCV MCH MCHC RDW Plt Count MPV Seg Neuts % (Manual) Band Neutrophils % Lymphocytes % (Manual) Monocytes % (Manual) Eosinophils % (Manual) Basophils % (Manual) Metamyelocytes % Myelocytes % Neutrophils # (Manual) Band Neutrophils # Lymphocytes # (Manual) Monocytes # (Manual) Eosinophils # (Manual) Basophils # (Manual) Metamyelocytes # Myelocytes # Sodium Potassium Chloride Carbon Dioxide Anion Gap BUN Creatinine Est GFR ( Amer) Est GFR (Non-Af Amer) BUN/Creatinine Ratio Glucose Calcium Total Bilirubin AST ALT Alkaline Phosphatase Ammonia Total Protein Albumin Globulin Albumin/Globulin Ratio POC Glucose 48 L* Discharge Plan Discharge Discharge Medications: No Action atorvastatin [Lipitor] 20 mg tablet 20 mg PO QPM spironolactone 25 mg tablet 12.5 mg PO QAM Rx Instructions: PER RETAIL FILLED HX - DIRECTIONS ARE TAKE 1/2 TAB PO QD - LAST FILLED 11/27/22 #15 FOR A 30 DAY SUPPLY carvedilol 12.5 mg tablet 12.5 mg PO BID Rx Instructions: must administer with a meal/food diltiazem HCl 60 mg capsule,extended release 12 hr 60 mg PO BID Ensure Original 0.04-1.05 gram-kcal/mL Liquid 1 ea feeding tube Q4H Qty: 5688 11RF finasteride 5 mg tablet 5 mg PO DAILY hydrocodone-acetaminophen 10-325 mg tablet 1 tab PO Q6H PRN (Reason: pain) Rx Instructions: PER RETAIL FILL HX - LAST FILLED ON 11/20/22 #140 FOR A 24 DAY SUPPLY insulin glargine [Lantus Solostar U-100 Insulin] 100 unit/mL (3 mL) insulin pen 30 unit SUBCUT DAILY pantoprazole 40 mg tablet,delayed release (DR/EC) 40 mg PO DAILY levothyroxine 75 mcg capsule 75 mcg PO DAILY Eliquis 2.5 mg tablet 2.5 mg PO BID albuterol sulfate [ProAir HFA] 90 mcg/actuation HFA aerosol inhaler 1 inh inhalation Q4H PRN (Reason: shortness of breath or wheezing) budesonide 0.5 mg/2 mL suspension for nebulization 0.5 mg inhalation BID tizanidine 4 mg capsule 4 mg PO QID Rx Instructions: PER RETAIL FILL HX - DIRECTIONS ARE 1 TAB PO QID - LAST FILLED 11/29/22 #120 FOR A 30 DAY SUPPLY cefdinir 300 mg capsule 600 mg PO QDAY Rx Instructions: X10 DAYS PER RETAIL FILL HX - LAST FILLED ON 12/16/25 #20 FOR A 10 DAY SUPPLY ferrous sulfate 220 mg (44 mg iron)/5 mL elixir 220 mg PO QDAY Rx Instructions: PER RETAIL FILL HX - LAST FILLED 09/15/22 FOR A 16 DAY SUPPLY prednisone 20 mg tablet 20 mg PO QDAY Rx Instructions: PER RETAIL FILL HX - LAST FILLED 12/04/22 #30 FOR A 30 DAY SUPPLY pramipexole [Mirapex] 0.5 mg tablet 0.5 mg PO QPM Rx Instructions: administer 2 - 3 hours before bedtime calcitonin (salmon) 200 unit/actuation spray,non-aerosol 1 spray intranasal (ALT) DAILY Rx Instructions: ALTERNATE NOSTRILS DAILY PER RETAIL FILL HX - LAST FILLED 11/20/26 FOR A 30 DAY SUPPLY ondansetron 4 mg tablet,disintegrating 4 mg PO QID PRN (Reason: nausea and vomiting) Rx Instructions: PER RETAIL FILL HX - LAST FILLED 12/14/22 #30 FOR A 10 DAY SUPPLY
--- NOTE | 2022-12-23 09:46 | SWNOTE1 ---
ANTONIA had message from [facility] and they spoke with daughter, Riddhi, and they set up time for Wednesday at 1:30-2 at hospital. ANTONIA called daughter Riddhi this morning and let her know they need to meet with hospice today to determine a discharge plan. Riddhi is picking up her sister from airport around 2:00, they can meet around 4:00. ANTONIA called and spoke with [facility], they will call ANTONIA back and let us know if 4:00 works.
--- NOTE | 2022-12-23 10:02 | SWNOTE1 ---
[facility] only has appointment today between 1:30/2:00 or tomorrow morning between 8:30/9. ANTONIA called and spoke with pt's daughter Riddhi to see which one would work. After conversing with daughter, family is able to meet tomorrow morning between 8:30 and 9:00. SW updated [facility], nursing, and doctor.
--- NOTE | 2022-12-23 10:17 | CM.NOTE ---
Rounds made with Dr. Murphy. Discharge plan still being determined.
--- NOTE | 2022-12-23 10:28 | PT.DAILY ---
Physical Therapy Daily Note PT Daily Note/Assess Start: 12/21/22 10:52 Freq: Status: Active Protocol: Document 12/23/22 10:25 DAVID (Rec: 12/23/22 10:28 DAVID [id number]) Physical Therapy Daily Note/Assessment Time In/Time Out Time In 09:25 Time Out 09:40 Pain In Pain N/A Pain Out Pain N/A Subjective Subjective Pt seen in 2x sessions. Lethargic this morning. needs constant cuing to open eyes throughout sessions. Denies pain. Therapeutic Exercise Time Therapeutic Exercise Minutes (minutes) 5 Therapeutic Exercise Units 0 Therapeutic Exercise Treatment Therapeutic Exercise Treatment Supine bilat PROM ther ex 10x ea to maintain mobility to carry over with transfers/gait . Therapeutic Activity Time Therapeutic Activity Minutes (minutes) 8 Therapeutic Activity Units 1 Therapeutic Activity Treatment Bed Mobility Ability Moderate Assist,2 Person Assist Chair Transfer Ability Minimum Assist,Moderate Assist ,2 Person Assist Therapeutic Activity Comments Pt completes bed mobs to sit EOB with ModA+2. Needs ModA to maintain seated balance due to R lateral lean. Sit>stand ModA+2 to RW. Amb with RW 5' with ModA+1 and Lars+1. Remains in BS chair upon completion under OT care. Total Physical Therapy Time Total Therapy Minutes 13 Total Physical Therapy Units 1 Summary Daily Note Summary Improved cooperation but cont to be lethargic.
[2022-12-23 11:34] LABS: Glucometer 392 mg/dL (74-106)
[2022-12-23] MEDS: INSULIN ASPART 300 UNIT/3 ML PEN SUBQ ×2 (11:36→21:27)
--- NOTE | 2022-12-23 11:59 | SWNOTE1 ---
ANTONIA faxed hospice order to [facility].
[2022-12-23] MEDS: CLOPIDOGREL BISULFATE 75 MG TABLET PO (13:38)
[2022-12-23] MEDS: WATER FOR IRRIGATION, STERILE 1,000 ML IRRIG.SOLN 250 ML G-TUBE ×2 (13:39→21:28)
[2022-12-23] MEDS: PRAMIPEXOLE 1 MG TABLET 0.5 MG PO (20:15)
[2022-12-23] MEDS: CARVEDILOL 25 MG TABLET PO (20:16)
--- NOTE | 2022-12-23 20:19 | P.PN_ITS ---
Progress Note: Subjective Subjective Interval history: Awake and oriented today but seems more lethargic. Not sure if he is giving up? Exam Constitutional Vital Signs, click to edit/add: Last Vital Signs Temp 98.1 F 12/23/22 20:15 Pulse 97 H 12/23/22 20:15 Resp 18 12/23/22 20:15 BP 155/73 H 12/23/22 20:15 Pulse Ox 93 L 12/23/22 20:15 O2 Del Method Room Air 12/23/22 20:15 O2 Flow Rate 2 12/20/22 11:09 Common normals: apparent distress General appearance: ill appearing Nutritional appearance: cachectic and underweight Orientation/consciousness: Yes lethargic HENMT Common normals: normocephalic Chest Common normals: inspection of chest normal Respiratory Common normals: normal respiratory effort Effort & inspection: non tachypneic Auscultation: rhonchi and wheezes Cardio Common normals: regular rate, regular rhythm and no murmurs GI Common normals: Normal to inspection, nondistended, normoactive bowel sounds present (PEG tube in place) Progress Note: Objective Labs Labs: Short CBC 12/23/22 Range/Units 05:20 WBC 15.3 H (4.0-11.0) 10^3/uL Hgb 10.8 L (14.0-18.0) g/dL Hct 32.1 L (42.0-54.0) % Plt Count 198 (150-450) 10^3/uL BMP 12/23/22 05:20 Sodium 131 L Potassium 4.7 Chloride 100 Carbon Dioxide 23.5 BUN 28.0 H Creatinine 0.82 Glucose 190 H Calcium 8.2 L Liver Function 12/23/22 Range/Units 05:20 Total Bilirubin 0.4 (0.2-1.0) mg/dL AST 16 (15-37) U/L ALT 19 (16-63) U/L Alkaline Phosphatase 193 H (46-116) U/L Albumin 2.0 L (3.4-5.0) g/dL Progress Note: A&P Assessment and Plan (1) COPD (chronic obstructive pulmonary disease): (2) Compression fracture of lumbar spine, non-traumatic: (3) Hypomagnesemia: (4) Hypomagnesemia: Plan -Dehydration hyperglycemia secondary to right lower lobe pneumonia complicating acute exacerbation of COPD with acute hypoxxic res failure.? Due to MRSA-we will adjust antibiotics today. Maintain aerosols. Antibiotic coverage for the MRSA related to started yesterday. He has 1 more day of IV antibiotics to ensure clearance. Resistant organism. Iron deficiency anemia-monitor daily, checking on stool occult blood.Continue to monitor hemoglobin closely-maintyain ppi Atrial fibrillation- rate is stable l Lumbar compression fracture- he is maxed out on pain medications that we can provide to him secondary to somnolence generalized anxiety disorder- had [id number] low-dose Xanax History of head neck cancer, patient unable to swallow currently, change things to just PEG tube only. family will discuss on potential hospice evaluation.
--- NOTE | 2022-12-23 21:04 | PC.NURSE ---
Iv in the rt mid forearm d/cd after unable to flush. Tape very carefully removed. Cathlon intact. pressure dressing applied and paper used. New site started in the top for the rt outer wrist with a 22g cath. Paper tape again used to secure and opsite.
[2022-12-24] VITALS (13 sets, daily range): BP systolic 135–162; BP diastolic 61–69; PULSE 63–89; RESP 16–18; TEMP 36.5–36.7; O2SAT 92–96
[2022-12-24] MEDS: DEXTROSE 50 %-WATER 25 GM/50 ML SYRINGE IV ×2 (01:49→04:57)
[2022-12-24 05:05] LABS: Basophils Absolute Auto 0.1 10^3/uL (0.0-0.1); Basophils Percent Auto 0.8 % (0.2-2.0); Eosinophils Percent Auto 0.3 % (0.9-7.0); Hematocrit 32.4 % (42.0-54.0); Hemoglobin 11.1 g/dL (14.0-18.0); Immature Granulocytes Abs Auto 1.17 10^3/uL (0.00-0.03); Immature Granulocytes Pct Auto 8.4 % (0.0-0.5); Lymphocytes Absolute Auto 0.9 10^3/uL (1.2-3.8); Lymphocytes Percent Auto 6.4 % (20.5-60.0); Mean Corpuscular HGB Conc 34.3 g/dL (29.9-35.2); Mean Corpuscular Volume 93.4 fL (80.0-94.0); Mean Platelet Volume 9.6 fL (9.5-13.5); Monocytes Absolute Auto 0.5 10^3/uL (0.3-0.8); Monocytes Percent Auto 3.9 % (1.7-12.0); Neutrophils Absolute Auto 11.1 10^3/uL (1.4-6.5); Neutrophils Percent Auto 80.2 % (43.0-75.0); Platelet Count 218 10^3/uL (150-450); Red Blood Count 3.47 10^6/uL (4.70-6.10); Red Cell Distribution Width 15.1 % (11.0-15.0); White Blood Count 13.9 10^3/uL (4.0-11.0)
[2022-12-24] MEDS: IPRATROPIUM/ALBUTEROL SULFATE 3 ML AMPUL.NEB IH ×2 (05:08→11:14)
[2022-12-24 05:18] LABS: Ammonia 28 umol/L (11-32)
[2022-12-24 05:25] LABS: Alanine Aminotransferase 20 U/L (16-63); Albumin Globulin Ratio 0.7; Albumin Level 2.2 g/dL (3.4-5.0); Alkaline Phosphatase 152 U/L (46-116); Anion Gap 10.3; Aspartate Amino Transferase 15 U/L (15-37); Bilirubin Total 0.4 mg/dL (0.2-1.0); Calcium 8.4 mg/dL (8.5-10.1); Carbon Dioxide 25.8 mmol/L (21.0-32.0); Chloride 100 mmol/L (98-107); Estimated GFR (African America >60 (>=60); Estimated GFR (Non-African Ame >60 (>=60); Globulin 3.1 g/dL; Glucose 89 mg/dL (74-106); Potassium 4.1 mmol/L (3.5-5.1); Sodium 132 mmol/L (136-145); Total Protein 5.3 g/dL (6.4-8.2)
[2022-12-24] MEDS: ALPRAZOLAM 0.25 MG TABLET PO ×2 (05:39→13:18)
[2022-12-24] MEDS: LEVOTHYROXINE SODIUM 75 MCG TABLET PO (05:40)
[2022-12-24] MEDS: WATER FOR IRRIGATION, STERILE 1,000 ML IRRIG.SOLN 250 ML G-TUBE ×2 (05:40→15:47)
--- NOTE | 2022-12-24 06:12 | PC.NURSE ---
glucose level 60 rechecked in 15 mins 68 then half hour later 181
--- NOTE | 2022-12-24 06:15 | PC.NURSE ---
glucose level 58 rechecked 83
[2022-12-24 06:20] LABS: Glucometer 203 mg/dL (74-106)
[2022-12-24 07:33] LABS: Glucometer 176 mg/dL (74-106)
--- NOTE | 2022-12-24 08:34 | CM.NOTE ---
Rounds made with Dr. Murphy, hospice will consult with pt and family this AM. Pt ok to discharge to home after decision made with pt and family (HH, skilled, or Hospice).
--- NOTE | 2022-12-24 08:55 | P.DS_ITS ---
DS: Providers Provider Date of admission: 12/19/22 12:38 Primary care physician: Juvenal Murphy MD Consults: 12/18/22 12:36 Occupational Therapy Eval and Treat Routine Physical Therapy Eval and Treat Routine 12/21/22 19:24 Consult to Wound Care Routine Consulting Provider: Choco Shen 12/22/22 Consult to Hospice Routine DS: Diagnosis Discharge Diagnosis (1) Compression fracture of lumbar spine, non-traumatic: Plan -Dehydration hyperglycemia secondary to right lower lobe pneumonia complicating acute exacerbation of COPD with acute hypoxxic res failure.? Due to MRSA Iron deficiency anemia Atrial fibrillation- Lumbar compression fracture- generalized anxiety disorder- History of head neck cancer, patient unable to swallow currently, change things to just PEG tube only. DS: Summary Hospital Course Hospital Course: Patient was admitted with acute exacerbation of COPD and dehydration with uncontrolled hyperglycemia. Sugars have been improving throughout the hospital stay. Patient's sputum did grow MRSA. Fairly resistant bug. Antibiotics were changed 3 days ago. Patient is slowly improving. Off of supplemental oxygen currently. White blood cell count is improving. Elevated liver function test also improving. Family will discuss care with hospice. Discharge later today. Medications see list. I will continue to follow as an outpatient. Time Spent with Patient Time attestation: Total time spent providing and/or coordinating discharge services: Exam Constitutional Vital Signs, click to edit/add: Last Vital Signs Temp 98.1 F 12/24/22 05:15 Pulse 86 12/24/22 07:52 Resp 18 12/24/22 05:15 BP 135/69 12/24/22 05:15 Pulse Ox 94 L 12/24/22 05:15 O2 Del Method Room Air 12/24/22 05:15 O2 Flow Rate 2 12/20/22 11:09 DS: Data Data Completed and Pending Labs on day of discharge: Labs from last 24 hours 12/24/22 12/24/22 12/24/22 07:31 06:18 04:55 WBC 13.9 H RBC 3.47 L Hgb 11.1 L Hct 32.4 L MCV 93.4 MCH 32.0 MCHC 34.3 RDW 15.1 H Plt Count 218 MPV 9.6 Neut % (Auto) 80.2 H Lymph % (Auto) 6.4 L Island % (Auto) 3.9 Eos % (Auto) 0.3 L Baso % (Auto) 0.8 Neut # (Auto) 11.1 H Lymph # (Auto) 0.9 L [place] # (Auto) 0.5 Eos # (Auto) 0.0 Baso # (Auto) 0.1 Abs Immat Gran (auto) 1.17 H Imm/Tot Granulo (auto) 8.4 H Sodium 132 L Potassium 4.1 Chloride 100 Carbon Dioxide 25.8 Anion Gap 10.3 BUN 30.0 H Creatinine 0.79 Est GFR ( Amer) >60 Est GFR (Non-Af Amer) >60 BUN/Creatinine Ratio 38.0 Glucose 89 Calcium 8.4 L Total Bilirubin 0.4 AST 15 ALT 20 Alkaline Phosphatase 152 H Ammonia 28 Total Protein 5.3 L Albumin 2.2 L Globulin 3.1 Albumin/Globulin Ratio 0.7 POC Glucose 176 H 203 H 12/23/22 11:32 WBC RBC Hgb Hct MCV MCH MCHC RDW Plt Count MPV Neut % (Auto) Lymph % (Auto) Island % (Auto) Eos % (Auto) Baso % (Auto) Neut # (Auto) Lymph # (Auto) Island # (Auto) Eos # (Auto) Baso # (Auto) Abs Immat Gran (auto) Imm/Tot Granulo (auto) Sodium Potassium Chloride Carbon Dioxide Anion Gap BUN Creatinine Est GFR ( Amer) Est GFR (Non-Af Amer) BUN/Creatinine Ratio Glucose Calcium Total Bilirubin AST ALT Alkaline Phosphatase Ammonia Total Protein Albumin Globulin Albumin/Globulin Ratio POC Glucose 392 H Discharge Plan Discharge Disposition: Home Health Service Discharge Medications: New clopidogrel 75 mg Tablet 75 mg PO QD Qty: 30 11RF water for irrigation, sterile Solution 250 ml G-tube TID 30 Days Qty: 6000 11RF lactulose 10 gram/15 mL (15 mL) Solution 10 g PO TID 30 Days Qty: 1350 11RF linezolid 600 mg tablet 600 mg PO BID 10 Days Qty: 20 0RF sulfamethoxazole-trimethoprim [Bactrim DS] 800-160 mg tablet 1 tab PO Q12H 14 Days Qty: 28 0RF Rx Instructions: Sent in case briseida linezolid is too expensive Continued atorvastatin [Lipitor] 20 mg tablet 20 mg PO QPM spironolactone 25 mg tablet 12.5 mg PO QAM Rx Instructions: PER RETAIL FILLED HX - DIRECTIONS ARE TAKE 1/2 TAB PO QD - LAST FILLED 11/27/22 #15 FOR A 30 DAY SUPPLY carvedilol 12.5 mg tablet 12.5 mg PO BID Rx Instructions: must administer with a meal/food diltiazem HCl 60 mg capsule,extended release 12 hr 60 mg PO BID Ensure Original 0.04-1.05 gram-kcal/mL Liquid 1 ea feeding tube Q4H Qty: 5688 11RF finasteride 5 mg tablet 5 mg PO DAILY hydrocodone-acetaminophen 10-325 mg tablet 1 tab PO Q6H PRN (Reason: pain) Rx Instructions: PER RETAIL FILL HX - LAST FILLED ON 11/20/22 #140 FOR A 24 DAY SUPPLY insulin glargine [Lantus Solostar U-100 Insulin] 100 unit/mL (3 mL) insulin pen 30 unit SUBCUT DAILY pantoprazole 40 mg tablet,delayed release (DR/EC) 40 mg PO DAILY levothyroxine 75 mcg capsule 75 mcg PO DAILY Eliquis 2.5 mg tablet 2.5 mg PO BID albuterol sulfate [ProAir HFA] 90 mcg/actuation HFA aerosol inhaler 1 inh inhalation Q4H PRN (Reason: shortness of breath or wheezing) budesonide 0.5 mg/2 mL suspension for nebulization 0.5 mg inhalation BID tizanidine 4 mg capsule 4 mg PO QID Rx Instructions: PER RETAIL FILL HX - DIRECTIONS ARE 1 TAB PO QID - LAST FILLED 11/29/22 #120 FOR A 30 DAY SUPPLY ferrous sulfate 220 mg (44 mg iron)/5 mL elixir 220 mg PO QDAY Rx Instructions: PER RETAIL FILL HX - LAST FILLED 09/15/22 FOR A 16 DAY SUPPLY prednisone 20 mg tablet 20 mg PO QDAY Rx Instructions: PER RETAIL FILL HX - LAST FILLED 12/04/22 #30 FOR A 30 DAY SUPPLY pramipexole [Mirapex] 0.5 mg tablet 0.5 mg PO QPM Rx Instructions: administer 2 - 3 hours before bedtime calcitonin (salmon) 200 unit/actuation spray,non-aerosol 1 spray intranasal (ALT) DAILY Rx Instructions: ALTERNATE NOSTRILS DAILY PER RETAIL FILL HX - LAST FILLED 11/20/26 FOR A 30 DAY SUPPLY ondansetron 4 mg tablet,disintegrating 4 mg PO QID PRN (Reason: nausea and vomiting) Rx Instructions: PER RETAIL FILL HX - LAST FILLED 12/14/22 #30 FOR A 10 DAY SUPPLY Discontinued cefdinir 300 mg capsule 600 mg PO QDAY Rx Instructions: X10 DAYS PER RETAIL FILL HX - LAST FILLED ON 12/16/25 #20 FOR A 10 DAY SUPPLY Forms: Portal Instructions
--- NOTE | 2022-12-24 09:29 | REH.PTDLY ---
Physical Therapy Daily Note PT Daily Note/Assess Start: 12/21/22 10:52 Freq: Status: Active Protocol: Document 12/24/22 09:28 ANASTACIA (Rec: 12/24/22 09:29 ANASTACIA [id number]) Visit Not Completed Other Reason Visit Not Completed Spoke with nursing, pt and family is currently meeting with hospice and is unavailable at this time. Family still deciding if they will sign on. Physical Therapy Daily Note/Assessment Time In 09:20 Time Out 09:23
--- NOTE | 2022-12-24 09:59 | SWNOTE1 ---
ANTONIA spoke with [facility] outside of room after they met with pt. Family has decided they do not want hospice. ANTONIA stopped in and spoke with pt's and 2 daughters. ANTONIA asked if they would like to move forward with [facility]? Pt's family voice frustration as they would like a medical update in regards to pt's infection and they would like to speak with Dr. Murphy before proceeding with any discharge plans. They voiced they do not feel he is medically stable for discharge at this time and not in a condition to discharge. Concerned about pt's infection and if he should get transferred. Family also voiced they were under the impression that a whole team would be here this morning to talk with them, such as therapy, doctor, etc. SW apologized to family that they were under that impression. At this time family would like to speak to Dr. Murphy before moving forward with discharge plan. ANTONIA did talk with Herbert at [facility] this morning and precert not started yet, waiting for family to decided.
[2022-12-24] MEDS: PREDNISONE 20 MG TABLET PO (10:11)
[2022-12-24] MEDS: LACTULOSE 10 GM/15 ML SOLUTION PO ×2 (10:11→13:19)
[2022-12-24] MEDS: CARVEDILOL 25 MG TABLET PO (10:11)
[2022-12-24] MEDS: FINASTERIDE 5 MG TABLET PO (10:12)
[2022-12-24] MEDS: APIXABAN 5 MG TABLET 2.5 MG PO (10:13)
[2022-12-24] MEDS: HYOSCYAMINE SULFATE 0.125 MG TAB.SUBL SL ×2 (10:13→13:19)
[2022-12-24] MEDS: DILTIAZEM HCL 60 MG TABLET 30 MG PO (10:13)
[2022-12-24] MEDS: ORPHENADRINE 60 MG/ 2 ML VIAL 30 MG IV (10:14)
[2022-12-24] MEDS: PANTOPRAZOLE SODIUM 40 MG VIAL IV (10:14)
[2022-12-24] MEDS: LINEZOLID IN DEXTROSE 5% 600 MG/300 ML PIGGYBACK 300 MG IV (10:37)
--- NOTE | 2022-12-24 10:43 | SWNOTE1 ---
Dr. Murphy spoke with family, SW went in to room and case management was in room as well. Family is going to discuss taking him home with home health. Pt is medically stable for discharge today.
--- NOTE | 2022-12-24 10:47 | CM.NOTE ---
Dr. Murphy back in to talk with pt and family, all questions answered and family now feel like they are able to make a better choice in the plan of care at discharge for pt. SW and Case Management will check back in about an hour for discharge planning.
[2022-12-24 11:13] LABS: Glucometer 190 mg/dL (74-106)
--- NOTE | 2022-12-24 11:55 | SWNOTE1 ---
SW stopped back in to see what family has decided, nobody was in room. SW stopped back in again and nobody was in room. SW called daughter, Jade, and she went to grab something to eat. Her sister Riddhi's son had a dentist appointment and thought it was at 11:30, but it is at 12:30. Family coming back in after that and will be discussing the plan.
[2022-12-24] MEDS: CLOPIDOGREL BISULFATE 75 MG TABLET PO (13:18)
[2022-12-24] MEDS: INSULIN ASPART 300 UNIT/3 ML PEN SUBQ (13:19)
[2022-12-24] MEDS: INSULIN DETEMIR 300 UNIT/3 ML INSULN.PEN 10 UNIT SUBQ (13:22)
--- NOTE | 2022-12-24 15:06 | SWNOTE1 ---
ANTONIA called daughter and left message. ANTONIA called other daughter Riddhi and she stated she was in the middle of an assessment for her child for school. She states she only briefly spoke with her sister. ANTONIA asked if they would be back up within the hour, they stated she is not sure but hopes so. ANTONIA updated doctor.
--- NOTE | 2022-12-24 15:42 | SWNOTE1 ---
ANTONIA updated doctor as well and at this time pt is discharged and skilled is not an option due to discharge planning starting several days ago and family undecided. ANTONIA and case managment called and spoke with daughter Jade. Family has decided they want [facility] at this time. Family aware patient is discharged today. ANTONIA has call out to [facility] to see if they can come this evening to the home to sign him on or if it will be tomorrow morning. ANTONIA also gave daughter hospice list in case they at any time want to switch hospice agencies. Waiting for call back from [facility].
--- NOTE | 2022-12-24 16:36 | SWNOTE1 ---
SW spoke with family and they are going to transport pt home versus doing stretcher. ANTONIA spoke with [facility] and they will be there between 12:30 and 1:00 tomorrow. SW updated family, nursing, and doctor.
== END 2022-12-24 17:18 | disposition hospice, home (50) | DRG 177 ==
PROVIDERS: Admitting Provider Family Medicine; PCP Family Medicine; Visit Provider Family Medicine
DX: J15.212 Pneumonia due to Methicillin resistant Staphylococcus aureus (principal); J96.01 Acute respiratory failure with hypoxia; J44.0 Chronic obstructive pulmonary disease with (acute) lower respiratory infection; J44.1 Chronic obstructive pulmonary disease with (acute) exacerbation; M48.56XA Collapsed vertebra, not elsewhere classified, lumbar region, initial encounter for fracture; F17.210 Nicotine dependence, cigarettes, uncomplicated; D50.9 Iron deficiency anemia, unspecified; I48.91 Unspecified atrial fibrillation; Z93.1 Gastrostomy status; E86.0 Dehydration; E83.42 Hypomagnesemia; R73.9 Hyperglycemia, unspecified; Z85.89 Personal history of malignant neoplasm of other organs and systems; F41.1 Generalized anxiety disorder; R79.89 Other specified abnormal findings of blood chemistry; R19.5 Other fecal abnormalities; L98.411 Non-pressure chronic ulcer of buttock limited to breakdown of skin; L53.9 Erythematous condition, unspecified; Z79.01 Long term (current) use of anticoagulants; Z79.4 Long term (current) use of insulin; Z79.890 Hormone replacement therapy; Z79.891 Long term (current) use of opiate analgesic; Z79.52 Long term (current) use of systemic steroids; Z79.899 Other long term (current) drug therapy
CPT/HCPCS: 36415; 74022; 80053; 81001; 81003; 82140; 82150; 82550; 82553; 82948; 83605; 83735; 83874; 83880; 84484; 85025; 85027; 85610; 85730; 87070; 87086; 87150; 87186; 87205; 94640; 94667; 94668; 94761; 96361; 96365; 96366; 96367; 96368; 96375; 96376; 97110; 97161; 97165; 97530; 97535; G0328; G0378; G0379; J1170; J2020; J2930; J3370

== ENCOUNTER 2023-01-22 10:54 | Emergency (ER) | payer MEDICARE, MEDICAID, SELFPAY ==
[2023-01-22 10:57] VITALS: BP 119/53; PULSE 67; RESP 16; TEMP 36.5; O2SAT 96; BMI 17.4
--- NOTE | 2023-01-22 11:34 | XR_ITS ---
The [address] [address] Patient Name: FRANKI VELA MRN: [id number] date: 1940 Sex: M Assigned Patient Location: ER Current Patient Location: ER Accession/Order Number: [id number] Exam Date: 01/22/2023 12:05 Report Date: 01/22/2023 12:45 At the request of: ALVINA CHRISTY Procedure: XR hip RT 2V w/ pelvis EXAM: XR hip RT 2V w/ pelvis HISTORY: fall COMPARISON: None. TECHNIQUE: 4 views of the right hip Final is: There is no acute fracture or dislocation. 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 There is right common iliac artery stent. The soft tissue is unremarkable. XR/XR hip RT 2V w/ pelvis IMPRESSION: No acute fracture. Electronically authenticated by: STACI BETHEA Date: 01/22/2023 12:45
--- NOTE | 2023-01-22 11:34 | XR_ITS ---
The [address] [address] Patient Name: FRANKI VELA MRN: [id number] date: 1940 Sex: M Assigned Patient Location: ER Current Patient Location: ER Accession/Order Number: [id number] Exam Date: 01/22/2023 12:05 Report Date: 01/22/2023 12:43 At the request of: ALVINA CHRISTY Procedure: XR shoulder RT min 2V EXAM: XR shoulder RT min 2V HISTORY: fall COMPARISON: None. TECHNIQUE: 3 views right shoulder FINDINGS: Bones: No acute or aggressive appearing bony lesion. Joints: Normal alignment. No effusion. 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 Soft tissues: Unremarkable. XR/XR shoulder RT min 2V IMPRESSION: Unremarkable examination. No evidence of fracture. Electronically authenticated by: STACI BETHEA Date: 01/22/2023 12:43
--- NOTE | 2023-01-22 11:35 | ED.LOWEXI1 ---
HPI - Extremity Injury (Lower) General Chief Complaint: Extremity Injury, Lower Stated Complaint: LOWER EXTREMITY INJURY RIGHT HIP Time Seen by Provider: 01/22/23 11:17 Source: patient and family Mode of arrival: Wheelchair History of Present Illness HPI Narrative: this patient's here with his daughter after having a fall earlier this week. He's been incredibly stubborn and refusing to come to the hospital until today. He can only bear weight with a lot of assistance. Does not have any pain in his left extremity. He also has some pain in his right shoulder. He describes the fall as occurring when he was leaning forward to reach to his dresser and he missed that he felt was right side. He denies any headache or neck pain. He's not been repeating himself. The daughter confirms much of this information and has not seen anything other than the described injuries. Related Data Home Medications Medication Instructions Recorded Confirmed albuterol sulfate 90 mcg/actuation 1 inh inhalation Q4H PRN shortness 11/10/22 12/18/22 aerosol inhaler (ProAir HFA) of breath or wheezing apixaban 2.5 mg tablet (Eliquis) 2.5 mg PO BID 11/10/22 12/18/22 budesonide 0.5 mg/2 mL suspension 0.5 mg inhalation BID 11/10/22 12/18/22 for nebulization finasteride 5 mg tablet 5 mg PO DAILY 11/10/22 12/18/22 hydrocodone 10 mg-acetaminophen 1 tab PO Q6H PRN pain 11/10/22 12/18/22 325 mg tablet insulin glargine 100 unit/mL (3 30 unit subcut DAILY 11/10/22 12/18/22 mL) subcutaneous pen (Lantus Solostar U-100 Insulin) levothyroxine 75 mcg capsule 75 mcg PO DAILY 11/10/22 12/18/22 pantoprazole 40 mg tablet,delayed 40 mg PO DAILY 11/10/22 12/18/22 release tizanidine 4 mg capsule 4 mg PO QID 11/10/22 12/18/22 atorvastatin 20 mg tablet (Lipitor) 20 mg PO QPM 12/07/22 12/18/22 carvedilol 12.5 mg tablet 12.5 mg PO BID 12/07/22 12/18/22 diltiazem HCl 60 mg 60 mg PO BID 12/07/22 12/18/22 capsule,extended release 12 hr spironolactone 25 mg tablet 12.5 mg PO QAM 12/07/22 12/18/22 calcitonin (salmon) 200 1 spray intranasal (ALT) DAILY 12/18/22 12/18/22 unit/actuation nasal spray ferrous sulfate 220 mg (44 mg 220 mg PO QDAY 12/18/22 12/18/22 iron)/5 mL oral elixir ondansetron 4 mg disintegrating 4 mg PO QID PRN nausea and vomiting 12/18/22 12/18/22 tablet pramipexole 0.5 mg tablet (Mirapex) 0.5 mg PO QPM 12/18/22 12/18/22 prednisone 20 mg tablet 20 mg PO QDAY 12/18/22 12/18/22 Previous Rx's Medication Instructions Recorded food supplemt, lactose-reduced 1 ea feeding tube Q4H #5,688 mL 12/08/22 0.04 gram-1.05 kcal/mL oral liquid (Ensure Original) clopidogrel 75 mg tablet 75 mg PO QD #30 tabs 12/23/22 lactulose 10 gram/15 mL (15 mL) 10 g (15 mL) PO TID 30 days #1,350 12/23/22 oral solution mL linezolid 600 mg tablet 600 mg PO BID 10 days #20 tabs 12/23/22 water for irrigation, sterile 250 ml G-tube TID 30 days #6,000 mL 12/23/22 sulfamethoxazole 800 1 tab PO Q12H 14 days #28 tabs 12/24/22 mg-trimethoprim 160 mg tablet (Bactrim DS) Allergies Allergy/AdvReac Type Severity Reaction Status Date / Time No Known Drug Allergies Allergy Verified 12/07/22 02:27 [facility] Medical History (Updated 01/22/23 @ 13:23 by Prasanna Casper MD) Surgical History (Updated 11/10/22 @ 12:02 by Ronnie Rosado) Social History (Updated 11/10/22 @ 15:16 by Rebecca Morocho) Smoking status: Heavy tobacco smoker Nicotine containing products detail: 66 1 pack per day Do you think of yourself as: straight/heterosexual Exam Narrative Exam Narrative: awake alert oriented. Says his right shoulder is sore and that his right hip is sore. He's not had previous fractures as noted earlier. His daughter is with him throughout this process. Constitutional shows abrasions and contusions upper on the right orbital area with a Band-Aid. There is no secondary infection. There is no hematoma. ENT shows otherwise no evidence of trauma injury there is no CSF otorrhea or rhinorrhea. Eye examination shows no conjunctivitis. Extraocular muscles are normal. The sternum clavicle are nontender. He's had a breakdown of skin from abrasion with some purulent debris noted in that right shoulder area range of motion is mildly restricted. Imaging will be done to that side to be sure that he'll kill fracture. Neurovascular examination of both upper extremities the hands and wrist area is normal. Exam new Examination pelvis shows no pain with pelvic rocking. Decreased range of motion because of discomfort in his right hip. There is no external rotation or shortening. He has spontaneous movement of the left hip. Neurological shows no focal neurological deficits are suspicious sympptomatology. Constitutional Vital Signs, click to edit/add: Last Vital Signs Temp 97.7 F 01/22/23 10:57 Pulse 01/22/23 10:57 Resp 16 01/22/23 10:57 BP 119/53 01/22/23 10:57 Pulse Ox 96 01/22/23 10:57 O2 Del Method Room Air 01/22/23 10:57 Course Vital Signs Vital signs: Vital Signs Temperature 97.7 F 01/22/23 10:57 Pulse Rate 01/22/23 10:57 Respiratory Rate 16 01/22/23 10:57 Blood Pressure 119/53 01/22/23 10:57 Pulse Oximetry 96 01/22/23 10:57 Oxygen Delivery Method Room Air 01/22/23 10:57 Temperature 97.7 F 01/22/23 10:57 Pulse Rate 67 01/22/23 10:57 Respiratory Rate 16 01/22/23 10:57 Blood Pressure 119/53 01/22/23 10:57 Pulse Oximetry 96 01/22/23 10:57 Oxygen Delivery Method Room Air 01/22/23 10:57 MDM - Extremity Injury (Lower) MDM Narrative Medical decision making narrative: imaging of his pelvis and right hip and shoulder shows no acute bony abnormalities. This was discussed extensively with the daughter that he'll have soft tissue injuries and soreness and should consider therapy if not feeling better in about 7-10 days. The right shoulder wound was cleansed and dressed by the nursing staff I will placce him on antibiotics. He stays with his family and we are going to go home but he should have follow-up with his primary care doctor Discharge Plan Discharge Chief Complaint: Extremity Injury, Lower Clinical Impression: Other sprain of right hip, initial encounter Patient Disposition: Home, Self-Care Time of Disposition Decision: 13:23 Prescriptions / Home Meds: No Action atorvastatin [Lipitor] 20 mg tablet 20 mg PO QPM spironolactone 25 mg tablet 12.5 mg PO QAM Rx Instructions: PER RETAIL FILLED HX - DIRECTIONS ARE TAKE 1/2 TAB PO QD - LAST FILLED 11/27/22 #15 FOR A 30 DAY SUPPLY carvedilol 12.5 mg tablet 12.5 mg PO BID Rx Instructions: must administer with a meal/food diltiazem HCl 60 mg capsule,extended release 12 hr 60 mg PO BID Ensure Original 0.04-1.05 gram-kcal/mL Liquid 1 ea feeding tube Q4H Qty: 5688 11RF finasteride 5 mg tablet 5 mg PO DAILY hydrocodone-acetaminophen 10-325 mg tablet 1 tab PO Q6H PRN (Reason: pain) Rx Instructions: PER RETAIL FILL HX - LAST FILLED ON 11/20/22 #140 FOR A 24 DAY SUPPLY insulin glargine [Lantus Solostar U-100 Insulin] 100 unit/mL (3 mL) insulin pen 30 unit SUBCUT DAILY pantoprazole 40 mg tablet,delayed release (DR/EC) 40 mg PO DAILY levothyroxine 75 mcg capsule 75 mcg PO DAILY Eliquis 2.5 mg tablet 2.5 mg PO BID albuterol sulfate [ProAir HFA] 90 mcg/actuation HFA aerosol inhaler 1 inh inhalation Q4H PRN (Reason: shortness of breath or wheezing) budesonide 0.5 mg/2 mL suspension for nebulization 0.5 mg inhalation BID tizanidine 4 mg capsule 4 mg PO QID Rx Instructions: PER RETAIL FILL HX - DIRECTIONS ARE 1 TAB PO QID - LAST FILLED 11/29/22 #120 FOR A 30 DAY SUPPLY ferrous sulfate 220 mg (44 mg iron)/5 mL elixir 220 mg PO QDAY Rx Instructions: PER RETAIL FILL HX - LAST FILLED 09/15/22 FOR A 16 DAY SUPPLY prednisone 20 mg tablet 20 mg PO QDAY Rx Instructions: PER RETAIL FILL HX - LAST FILLED 12/04/22 #30 FOR A 30 DAY SUPPLY pramipexole [Mirapex] 0.5 mg tablet 0.5 mg PO QPM Rx Instructions: administer 2 - 3 hours before bedtime calcitonin (salmon) 200 unit/actuation spray,non-aerosol 1 spray intranasal (ALT) DAILY Rx Instructions: ALTERNATE NOSTRILS DAILY PER RETAIL FILL HX - LAST FILLED 11/20/26 FOR A 30 DAY SUPPLY ondansetron 4 mg tablet,disintegrating 4 mg PO QID PRN (Reason: nausea and vomiting) Rx Instructions: PER RETAIL FILL HX - LAST FILLED 12/14/22 #30 FOR A 10 DAY SUPPLY clopidogrel 75 mg Tablet 75 mg PO QD Qty: 30 11RF water for irrigation, sterile Solution 250 ml G-tube TID 30 Days Qty: 6000 11RF lactulose 10 gram/15 mL (15 mL) Solution 10 g PO TID 30 Days Qty: 1350 11RF linezolid 600 mg tablet 600 mg PO BID 10 Days Qty: 20 0RF sulfamethoxazole-trimethoprim [Bactrim DS] 800-160 mg tablet 1 tab PO Q12H 14 Days Qty: 28 0RF Rx Instructions: Sent in case briseida linezolid is too expensive Additional Instructions: Keflex for skin infection near the shoulder/use narcotic analgesics sparingly, follow-up family doctor to consider physical therapy in one week Stand Alone Forms: Portal Instructions Referrals: Juvenal Murphy MD [Primary Care Provider] - 1 week
--- NOTE | 2023-01-22 12:29 | XR_ITS ---
The [place] [id number] Patient Name: FRANKI VELA MRN: [id number] date: 1940 Sex: M Assigned Patient Location: ER Current Patient Location: ER Accession/Order Number: [id number] Exam Date: 01/22/2023 12:55 Report Date: 01/22/2023 13:18 At the request of: ALVINA CHRISTY Procedure: XR femur RT 2V STUDY: XR femur RT 2V, [id number] HISTORY: fall COMPARISON: Correlated with same day pelvis x-rays. FINDINGS: No acute fracture, dislocation, or suspicious osseous lesion. Moderate osteoarthritis of the right knee. Extensive vascular calcifications with partially visualized right common iliac artery stent. XR/XR femur RT 2V IMPRESSION: No acute osseous abnormality. Electronically authenticated by: LOS HAMMER Date: 01/22/2023 13:18
== END 2023-01-22 13:35 | disposition home or self-care (01) ==
PROVIDERS: Emergency Provider Emergency Medicine Emergency Medical Services; PCP Family Medicine
DX: S73.101A Unspecified sprain of right hip, initial encounter (principal); S40.211A Abrasion of right shoulder, initial encounter; W19.XXXA Unspecified fall, initial encounter; F17.210 Nicotine dependence, cigarettes, uncomplicated; Z79.899 Other long term (current) drug therapy; Z79.890 Hormone replacement therapy; Z79.4 Long term (current) use of insulin
CPT/HCPCS: 73030; 73502; 73552; 99284

== ENCOUNTER 2023-02-02 19:50 | Emergency (ER) | payer MEDICARE, MEDICAID, SELFPAY ==
[2023-02-02 20:02] VITALS: BP 137/68; PULSE 87; RESP 20; TEMP 36.9; O2SAT 94; BMI 17.4
[2023-02-02 20:17] LABS: Glucometer 174 mg/dL (74-106)
--- NOTE | 2023-02-02 20:22 | ED_ITS ---
HPI - Extremity Problem General Chief complaint: Extremity Injury, Lower Stated complaint: Left foot Pain Time Seen by Provider: 02/02/23 20:07 Source: patient Mode of arrival: Wheelchair Limitations: no limitations History of Present Illness HPI Narrative: IDDM patient presents complaining of increasing pain of his left foot. States he was seen by Dr Murphy 5 days ago and prescribed antibiotics. States his foot is now more painful. He has an ulcer of the left dorsal 2nd toe with erythema extending onto the dorsum of his foot. He is not able to recall if the area of erythema is the same as 5 days ago or worse. His complaint is increasing pain. No fever, nausea MD Complaint: Reports extremity pain Related Data Home Medications Medication Instructions Recorded Confirmed albuterol sulfate 90 mcg/actuation 1 inh inhalation Q4H PRN shortness 11/10/22 02/02/23 aerosol inhaler (ProAir HFA) of breath or wheezing apixaban 2.5 mg tablet (Eliquis) 2.5 mg PO BID 11/10/22 02/02/23 budesonide 0.5 mg/2 mL suspension 0.5 mg inhalation BID 11/10/22 02/02/23 for nebulization finasteride 5 mg tablet 5 mg PO DAILY 11/10/22 02/02/23 hydrocodone 10 mg-acetaminophen 1 tab PO Q6H PRN pain 11/10/22 02/02/23 325 mg tablet insulin glargine 100 unit/mL (3 30 unit subcut DAILY 11/10/22 02/02/23 mL) subcutaneous pen (Lantus Solostar U-100 Insulin) levothyroxine 75 mcg capsule 75 mcg PO DAILY 11/10/22 02/02/23 pantoprazole 40 mg tablet,delayed 40 mg PO DAILY 11/10/22 02/02/23 release atorvastatin 20 mg tablet (Lipitor) 20 mg PO QPM 12/07/22 02/02/23 carvedilol 12.5 mg tablet 12.5 mg PO BID 12/07/22 02/02/23 diltiazem HCl 60 mg 60 mg PO BID 12/07/22 02/02/23 capsule,extended release 12 hr spironolactone 25 mg tablet 12.5 mg PO QAM 12/07/22 02/02/23 calcitonin (salmon) 200 1 spray intranasal (ALT) DAILY 12/18/22 02/02/23 unit/actuation nasal spray ferrous sulfate 220 mg (44 mg 220 mg PO QDAY 12/18/22 02/02/23 iron)/5 mL oral elixir ondansetron 4 mg disintegrating 4 mg PO QID PRN nausea and vomiting 12/18/22 02/02/23 tablet pramipexole 0.5 mg tablet (Mirapex) 0.5 mg PO QPM 12/18/22 02/02/23 prednisone 20 mg tablet 20 mg PO QDAY 12/18/22 02/02/23 cefdinir 250 mg/5 mL oral mg 02/02/23 suspension Previous Rx's Medication Instructions Recorded food supplemt, lactose-reduced 1 ea feeding tube Q4H #5,688 mL 12/08/22 0.04 gram-1.05 kcal/mL oral liquid (Ensure Original) clopidogrel 75 mg tablet 75 mg PO QD #30 tabs 12/23/22 lactulose 10 gram/15 mL (15 mL) 10 g (15 mL) PO TID 30 days #1,350 12/23/22 oral solution mL linezolid 600 mg tablet 600 mg PO BID 10 days #20 tabs 12/23/22 water for irrigation, sterile 250 ml G-tube TID 30 days #6,000 mL 12/23/22 Allergies Allergy/AdvReac Type Severity Reaction Status Date / Time No Known Drug Allergies Allergy Verified 02/02/23 20:07 Review of Systems ROS Status of ROS 10 or more systems reviewed and unremarkable except as noted in history and below [facility] Medical History (Updated 02/02/23 @ 23:21 by Eric Fink MD) Surgical History (Updated 11/10/22 @ 12:02 by Ronnie Rosado) Social History (Updated 11/10/22 @ 15:16 by Rebecca Morocho) Smoking status: Current every day smoker Nicotine containing products detail: 66 1 pack per day Do you think of yourself as: straight/heterosexual Exam Constitutional Vital Signs, click to edit/add: Last Vital Signs Temp 98.5 F 02/02/23 20:02 Pulse 87 02/02/23 20:02 Resp 20 02/02/23 20:02 BP 137/68 02/02/23 20:02 Pulse Ox 94 L 02/02/23 20:02 O2 Del Method Room Air 02/02/23 20:02 Common normals: no apparent distress, oriented x3 and alert HENMT Common normals: normocephalic and head/scalp atraumatic Eye Common normals: EOMs intact bilaterally and conjunctivae normal Respiratory Common normals: normal respiratory effort, no retractions, no use of accessory muscles and clear to auscultation bilaterally Cardio Common normals: regular rate, regular rhythm, S1 normal heart sound and S2 normal heart sound Extremity Other: small superficial ulcer 5mm dorsum left 2nd toe. mild swelling of the toe. ERythema of the toe that extends onto the dorsum of his foot. Edema of the dorsal foot. Area of erythema is tender. Neuro Common normals: oriented x3, CN's II-XII intact bilaterally, moves all extremities, no focal motor deficits and no sensory deficits noted Psych Appearance: grossly normal Course Vital Signs Vital signs: Vital Signs Temperature 98.5 F 02/02/23 20:02 Pulse Rate 87 02/02/23 20:02 Respiratory Rate 02/02/23 20:02 Blood Pressure 137/68 02/02/23 20:02 Pulse Oximetry 94 L 02/02/23 20:02 Oxygen Delivery Method Room Air 02/02/23 20:02 Temperature 98.5 F 02/02/23 20:02 Pulse Rate 87 02/02/23 20:02 Respiratory Rate 20 02/02/23 20:02 Blood Pressure 137/68 02/02/23 20:02 Pulse Oximetry 94 L 02/02/23 20:02 Oxygen Delivery Method Room Air 02/02/23 20:02 MDM - Extremity (Nontraumatic) MDM Narrative Medical decision making narrative: patient presents with diabetic ulcer left dorsal 2nd toe with erythema of the toe that extends to the MTP joint of the dorsum of his foot. tender. neg fever. Has been on Bactrim ds for 5 days and he complains the pain is worse. He is not able to provide history of whether the erythema is any worse. His WBC is normal . Has mildly elevated sed rate but normal CRP and no xray findings to support osteomyelitis. Treated with IV clindamycin and norco in the department. Discharged home with a prescription of clindamycin and norco and advised to follow up with Dr Murphy. He is to d/c Bactrim ds Lab Data Labs: Lab Results 02/02/23 02/02/23 Range/Units 20:13 20:50 WBC 11.9 H (4.0-11.0) 10^3/uL RBC 3.07 L (4.70-6.10) 10^6/uL Hgb 10.2 L (14.0-18.0) g/dL Hct 32.3 L (42.0-54.0) % MCV 105.2 H (80.0-94.0) fL MCH 33.2 (25.9-34.0) pg MCHC 31.6 (29.9-35.2) g/dL RDW 14.1 (11.0-15.0) % Plt Count 345 (150-450) 10^3/uL MPV 9.5 (9.5-13.5) fL Neut % (Auto) 83.3 H (43.0-75.0) % Lymph % (Auto) 6.8 L (20.5-60.0) % [place] % (Auto) 7.3 (1.7-12.0) % Eos % (Auto) 0.8 L (0.9-7.0) % Baso % (Auto) 0.4 (0.2-2.0) % Neut # (Auto) 9.9 H (1.4-6.5) 10^3/uL Lymph # (Auto) 0.8 L (1.2-3.8) 10^3/uL [place] # (Auto) 0.9 H (0.3-0.8) 10^3/uL Eos # (Auto) 0.1 (0.0-0.7) 10^3/uL Baso # (Auto) 0.1 (0.0-0.1) 10^3/uL Abs Immat Gran (auto) 0.17 H (0.00-0.03) 10^3/uL Imm/Tot Granulo (auto) 1.4 H (0.0-0.5) % ESR 57 H (<=20) mm/hr Sodium 142 (136-145) mmol/L Potassium 3.9 (3.5-5.1) mmol/L Chloride 108 H (98-107) mmol/L Carbon Dioxide 29.0 (21.0-32.0) mmol/L Anion Gap 8.9 BUN 46.0 H (7.0-18.0) mg/dL Creatinine 1.14 (0.70-1.30) mg/dL Est GFR ( Amer) >60 (>=60) Est GFR (Non-Af Amer) >60 (>=60) BUN/Creatinine Ratio 40.4 Glucose 138 H (74-106) mg/dL Lactate 1.3 (0.4-2.0) mmol/L Calcium 8.4 L (8.5-10.1) mg/dL C-Reactive Protein 1.0 (<=1.0) mg/dL POC Glucose 174 H (74-106) mg/dL Discharge Plan Discharge Chief Complaint: Extremity Injury, Lower Clinical Impression: Diabetic foot ulcer, Cellulitis of foot, left Patient Disposition: Home, Self-Care Prescriptions / Home Meds: No Action atorvastatin [Lipitor] 20 mg tablet 20 mg PO QPM spironolactone 25 mg tablet 12.5 mg PO QAM Hold Instructions: Doctor's Order Rx Instructions: PER RETAIL FILLED HX - DIRECTIONS ARE TAKE 1/2 TAB PO QD - LAST FILLED 11/27/22 #15 FOR A 30 DAY SUPPLY carvedilol 12.5 mg tablet 12.5 mg PO BID Rx Instructions: must administer with a meal/food diltiazem HCl 60 mg capsule,extended release 12 hr 60 mg PO BID Ensure Original 0.04-1.05 gram-kcal/mL Liquid 1 ea feeding tube Q4H Qty: 5688 11RF cefdinir 250 mg/5 mL suspension for reconstitution finasteride 5 mg tablet 5 mg PO DAILY hydrocodone-acetaminophen 10-325 mg tablet 1 tab PO Q6H PRN (Reason: pain) Rx Instructions: PER RETAIL FILL HX - LAST FILLED ON 11/20/22 #140 FOR A 24 DAY SUPPLY insulin glargine [Lantus Solostar U-100 Insulin] 100 unit/mL (3 mL) insulin pen 30 unit SUBCUT DAILY pantoprazole 40 mg tablet,delayed release (DR/EC) 40 mg PO DAILY levothyroxine 75 mcg capsule 75 mcg PO DAILY Eliquis 2.5 mg tablet 2.5 mg PO BID albuterol sulfate [ProAir HFA] 90 mcg/actuation HFA aerosol inhaler 1 inh inhalation Q4H PRN (Reason: shortness of breath or wheezing) budesonide 0.5 mg/2 mL suspension for nebulization 0.5 mg inhalation BID ferrous sulfate 220 mg (44 mg iron)/5 mL elixir 220 mg PO QDAY Rx Instructions: PER RETAIL FILL HX - LAST FILLED 09/15/22 FOR A 16 DAY SUPPLY prednisone 20 mg tablet 20 mg PO QDAY Hold Instructions: Doctor's Order Rx Instructions: PER RETAIL FILL HX - LAST FILLED 12/04/22 #30 FOR A 30 DAY SUPPLY pramipexole [Mirapex] 0.5 mg tablet 0.5 mg PO QPM Hold Instructions: Doctor's Order Rx Instructions: administer 2 - 3 hours before bedtime calcitonin (salmon) 200 unit/actuation spray,non-aerosol 1 spray intranasal (ALT) DAILY Rx Instructions: ALTERNATE NOSTRILS DAILY PER RETAIL FILL HX - LAST FILLED 11/20/26 FOR A 30 DAY SUPPLY ondansetron 4 mg tablet,disintegrating 4 mg PO QID PRN (Reason: nausea and vomiting) Rx Instructions: PER RETAIL FILL HX - LAST FILLED 12/14/22 #30 FOR A 10 DAY SUPPLY clopidogrel 75 mg Tablet 75 mg PO QD Qty: 30 11RF Hold Instructions: Doctor's Order water for irrigation, sterile Solution 250 ml G-tube TID 30 Days Qty: 6000 11RF lactulose 10 gram/15 mL (15 mL) Solution 10 g PO TID 30 Days Qty: 1350 11RF Hold Instructions: Doctor's Order linezolid 600 mg tablet 600 mg PO BID 10 Days Qty: 20 0RF Instructions: Diabetic Foot Ulcers (ED) Additional Instructions: discontinue Bactrim. follow up with Dr Murphy in the next couple of days for recheck Stand Alone Forms: Portal Instructions Referrals: Juvenal Murphy MD [Primary Care Provider] - 1 week
--- NOTE | 2023-02-02 20:27 | XR_ITS ---
The [address] [address] Patient Name: FRANKI VELA MRN: [id number] date: 1940 Sex: M Assigned Patient Location: ER Current Patient Location: ED.MAIN Accession/Order Number: [id number] Exam Date: 02/02/2023 21:00 Report Date: 02/02/2023 21:18 At the request of: GAURAV ARENAS Procedure: XR foot LT min 3V EXAM: XR foot LT min 3V HISTORY: osteomyelitis COMPARISON: None. TECHNIQUE: 3 view study FINDINGS: Overall bony architecture is normal. Joint spaces are satisfactorily maintained. Forefoot soft tissue swelling is noted, particularly at the second toe.. XR/XR foot LT min 3V IMPRESSION: Forefoot soft tissue swelling, particularly at the second toe. No convincing plain film evidence for osteomyelitis. Electronically authenticated by: Gato KNIGHT Date: 02/02/2023 21:18
[2023-02-02 20:58] LABS: Basophils Absolute Auto 0.1 10^3/uL (0.0-0.1); Basophils Percent Auto 0.4 % (0.2-2.0); Eosinophils Absolute Auto 0.1 10^3/uL (0.0-0.7); Eosinophils Percent Auto 0.8 % (0.9-7.0); Hematocrit 32.3 % (42.0-54.0); Hemoglobin 10.2 g/dL (14.0-18.0); Immature Granulocytes Abs Auto 0.17 10^3/uL (0.00-0.03); Immature Granulocytes Pct Auto 1.4 % (0.0-0.5); Lymphocytes Absolute Auto 0.8 10^3/uL (1.2-3.8); Lymphocytes Percent Auto 6.8 % (20.5-60.0); Mean Corpuscular HGB Conc 31.6 g/dL (29.9-35.2); Mean Corpuscular Hemoglobin 33.2 pg (25.9-34.0); Mean Corpuscular Volume 105.2 fL (80.0-94.0); Mean Platelet Volume 9.5 fL (9.5-13.5); Monocytes Absolute Auto 0.9 10^3/uL (0.3-0.8); Monocytes Percent Auto 7.3 % (1.7-12.0); Neutrophils Absolute Auto 9.9 10^3/uL (1.4-6.5); Neutrophils Percent Auto 83.3 % (43.0-75.0); Platelet Count 345 10^3/uL (150-450); Red Blood Count 3.07 10^6/uL (4.70-6.10); Red Cell Distribution Width 14.1 % (11.0-15.0); White Blood Count 11.9 10^3/uL (4.0-11.0)
[2023-02-02 21:06] LABS: Erythrocyte Sedimentation Rate 57 mm/hr (<=20)
[2023-02-02 21:11] LABS: Anion Gap 8.9; BUN Creatinine Ratio 40.4; Calcium 8.4 mg/dL (8.5-10.1); Chloride 108 mmol/L (98-107); Estimated GFR (African America >60 (>=60); Estimated GFR (Non-African Ame >60 (>=60); Glucose 138 mg/dL (74-106); Potassium 3.9 mmol/L (3.5-5.1); Sodium 142 mmol/L (136-145)
[2023-02-02 21:19] LABS: Lactate/Lactic Acid 1.3 mmol/L (0.4-2.0)
[2023-02-02] MEDS: CLINDAMYCIN PHOSPHATE/D5W 900 MG/50 ML PIGGYBACK 100 MG IV (22:11)
== END 2023-02-02 23:42 | disposition home or self-care (01) ==
PROVIDERS: Emergency Provider Internal Medicine; PCP Family Medicine
DX: E11.621 Type 2 diabetes mellitus with foot ulcer (principal); E11.628 Type 2 diabetes mellitus with other skin complications; L97.529 Non-pressure chronic ulcer of other part of left foot with unspecified severity; L03.116 Cellulitis of left lower limb; F17.210 Nicotine dependence, cigarettes, uncomplicated; Z79.899 Other long term (current) drug therapy; Z79.01 Long term (current) use of anticoagulants; Z79.4 Long term (current) use of insulin; Z79.890 Hormone replacement therapy
CPT/HCPCS: 36415; 73630; 80048; 83605; 85025; 85652; 86140; 96365; 99285

== ENCOUNTER 2023-04-09 16:10 | Emergency (ER) | payer MEDICARE, MEDICAID, SELFPAY ==
[2023-04-09 16:17] VITALS: BP 135/68; PULSE 77; RESP 18; TEMP 36.8; O2SAT 95; BMI 30.3
--- NOTE | 2023-04-09 17:06 | ED.BACK1 ---
HPI - Back Pain/Injury General Chief Complaint: Back Pain/Injury Stated Complaint: BACK PAIN Time Seen by Provider: 04/09/23 16:16 Source: patient Mode of arrival: Wheelchair Limitations: no limitations History of Present Illness HPI Narrative: Patient has chronic low back pain and was found to have lumbar fracture at L2 along with previously diagnosed L1 fracture. He had been receiving pain meds through Dr Murphy and been doing well until he got sick earlier this week - cough producing whitish phlegm. he saw Dr Murphy and was prescribed antibiotics. The patient subsequently developed pain along the ribs/sides - especially in the back - as his coughing continued. He was brought to the ED by his family to get pain medicine. Related Data Home Medications Medication Instructions Recorded Confirmed albuterol sulfate 90 mcg/actuation 1 inh inhalation Q4H PRN shortness 11/10/22 02/02/23 aerosol inhaler (ProAir HFA) of breath or wheezing apixaban 2.5 mg tablet (Eliquis) 2.5 mg PO BID 11/10/22 02/02/23 budesonide 0.5 mg/2 mL suspension 0.5 mg inhalation BID 11/10/22 02/02/23 for nebulization finasteride 5 mg tablet 5 mg PO DAILY 11/10/22 02/02/23 hydrocodone 10 mg-acetaminophen 1 tab PO Q6H PRN pain 11/10/22 02/02/23 325 mg tablet insulin glargine 100 unit/mL (3 30 unit subcut DAILY 11/10/22 02/02/23 mL) subcutaneous pen (Lantus Solostar U-100 Insulin) levothyroxine 75 mcg capsule 75 mcg PO DAILY 11/10/22 02/02/23 pantoprazole 40 mg tablet,delayed 40 mg PO DAILY 11/10/22 02/02/23 release atorvastatin 20 mg tablet (Lipitor) 20 mg PO QPM 12/07/22 02/02/23 carvedilol 12.5 mg tablet 12.5 mg PO BID 12/07/22 02/02/23 diltiazem HCl 60 mg 60 mg PO BID 12/07/22 02/02/23 capsule,extended release 12 hr spironolactone 25 mg tablet 12.5 mg PO QAM 12/07/22 02/02/23 calcitonin (salmon) 200 1 spray intranasal (ALT) DAILY 12/18/22 02/02/23 unit/actuation nasal spray ferrous sulfate 220 mg (44 mg 220 mg PO QDAY 12/18/22 02/02/23 iron)/5 mL oral elixir ondansetron 4 mg disintegrating 4 mg PO QID PRN nausea and vomiting 12/18/22 02/02/23 tablet pramipexole 0.5 mg tablet (Mirapex) 0.5 mg PO QPM 12/18/22 02/02/23 prednisone 20 mg tablet 20 mg PO QDAY 12/18/22 02/02/23 cefdinir 250 mg/5 mL oral mg 02/02/23 suspension Previous Rx's Medication Instructions Recorded food supplemt, lactose-reduced 1 ea feeding tube Q4H #5,688 mL 12/08/22 0.04 gram-1.05 kcal/mL oral liquid (Ensure Original) clopidogrel 75 mg tablet 75 mg PO QD #30 tabs 12/23/22 lactulose 10 gram/15 mL (15 mL) 10 g (15 mL) PO TID 30 days #1,350 12/23/22 oral solution mL linezolid 600 mg tablet 600 mg PO BID 10 days #20 tabs 12/23/22 water for irrigation, sterile 250 ml G-tube TID 30 days #6,000 mL 12/23/22 methocarbamol 750 mg tablet 750 mg PO Q6H PRN pain #20 tabs 04/09/23 Allergies Allergy/AdvReac Type Severity Reaction Status Date / Time No Known Drug Allergies Allergy Verified 02/02/23 20:07 [facility] Medical History (Updated 04/09/23 @ 17:05 by Walt Contreras) Acute dehydration ?E86.0 - Dehydration (ICD-10) Acute hyperkalemia ?E87.5 - Hyperkalemia (ICD-10) Community acquired pneumonia ?J18.9 - Pneumonia, unspecified organism (ICD-10) History of arthritis ?Z87.39 - Personal history of other diseases of the musculoskeletal system and connective tissue (ICD-10) History of compression fracture of spine ?Z87.81 - Personal history of (healed) traumatic fracture (ICD-10) History of COPD ?Z87.09 - Personal history of other diseases of the respiratory system (ICD-10) History of diabetes mellitus ?Z86.39 - Personal history of other endocrine, nutritional and metabolic disease (ICD-10) History of gastrostomy tube placement History of HI (myocardial infarction) ?I25.2 - Old myocardial infarction (ICD-10) History of throat cancer ?Z85.819 - Personal history of malignant neoplasm of unspecified site of lip, oral cavity, and pharynx (ICD-10) Surgical History (Updated 11/10/22 @ 12:02 by Ronnie Rosado) History of colonoscopy ?Z98.890 - Other specified postprocedural states (ICD-10) History of esophagogastroduodenoscopy (EGD) ?Z98.890 - Other specified postprocedural states (ICD-10) History of heart artery stent ?Z95.5 - Presence of coronary angioplasty implant and graft (ICD-10) Social History (Updated 11/10/22 @ 15:16 by Rebecca Morocho) Smoking status: Current every day smoker Nicotine containing products detail: 66 1 pack per day Do you think of yourself as: straight/heterosexual Exam Narrative Exam Narrative: Nurses notes and vital signs reviewed and patient is not hypoxic. afebrile General: Well-appearing and in no apparent distress. Skin: Warm, dry, no pallor noted. No rash. Head: Normocephalic, atraumatic. Neck: Supple, non-tender. Cardiovascular: Regular Rate and Rhythm without murmur, gallop or rub. Respiratory: No accessory muscle use or respiratory distress. Lungs are clear to auscultation, no wheezing, rales or rhonchi Chest Wall: no tenderness anteriorly. He has posterolateral rib tenderness without palpable fracture, crepitus or subcutaneous emphysema Back: Diffuse midline lumbar vertebral tenderness. No CVA tenderness Musculoskeletal: normal ROM, no calf or popliteal tenderness, no lower extremity edema/swelling GI: Abdomen is soft, non-distended. Normal bowel sounds. No tenderness to palpation. No rebound, guarding, or rigidity noted. Neurological: A&O x4. No cranial nerve dysfunction observed. No truncal ataxia. Moves all extremities. Sensation intact. Psychiatric: Cooperative and interactive. Normal mood and affect. Constitutional Vital Signs, click to edit/add: Last Vital Signs Temp 98.3 F 04/09/23 16:17 Pulse 77 04/09/23 16:17 Resp 18 04/09/23 16:17 BP 135/68 04/09/23 16:17 Pulse Ox 95 04/09/23 16:17 O2 Del Method Room Air 04/09/23 16:17 Course Vital Signs Vital signs: Vital Signs Temperature 98.3 F 04/09/23 16:17 Pulse Rate 77 04/09/23 16:17 Respiratory Rate 18 04/09/23 16:17 Blood Pressure 135/68 04/09/23 16:17 Pulse Oximetry 95 04/09/23 16:17 Oxygen Delivery Method Room Air 04/09/23 16:17 Temperature 98.3 F 04/09/23 16:17 Pulse Rate 77 04/09/23 16:17 Respiratory Rate 18 04/09/23 16:17 Blood Pressure 135/68 04/09/23 16:17 Pulse Oximetry 95 04/09/23 16:17 Oxygen Delivery Method Room Air 04/09/23 16:17 MDM - Back Pain/Injury MDM Narrative Medical decision making narrative: Patient given IM pain med and then discharged home with prescription for Robaxin sent to his pharmacy of choice. He can continue to take his prescribed pain meds with caution and finish the antibiotic prescribed. PCP follow up recommended. Discharge Plan Discharge Chief Complaint: Back Pain/Injury Clinical Impression: Back pain, Rib pain Patient Disposition: Home, Self-Care Time of Disposition Decision: 17:04 Prescriptions / Home Meds: New methocarbamol 750 mg tablet 750 mg PO Q6H PRN (Reason: pain) Qty: 20 0RF No Action atorvastatin [Lipitor] 20 mg tablet 20 mg PO QPM spironolactone 25 mg tablet 12.5 mg PO QAM Hold Instructions: Doctor's Order Rx Instructions: PER RETAIL FILLED HX - DIRECTIONS ARE TAKE 1/2 TAB PO QD - LAST FILLED 11/27/22 #15 FOR A 30 DAY SUPPLY carvedilol 12.5 mg tablet 12.5 mg PO BID Rx Instructions: must administer with a meal/food diltiazem HCl 60 mg capsule,extended release 12 hr 60 mg PO BID Ensure Original 0.04-1.05 gram-kcal/mL Liquid 1 ea feeding tube Q4H Qty: 5688 11RF cefdinir 250 mg/5 mL suspension for reconstitution finasteride 5 mg tablet 5 mg PO DAILY hydrocodone-acetaminophen 10-325 mg tablet 1 tab PO Q6H PRN (Reason: pain) Rx Instructions: PER RETAIL FILL HX - LAST FILLED ON 11/20/22 #140 FOR A 24 DAY SUPPLY insulin glargine [Lantus Solostar U-100 Insulin] 100 unit/mL (3 mL) insulin pen 30 unit SUBCUT DAILY pantoprazole 40 mg tablet,delayed release (DR/EC) 40 mg PO DAILY levothyroxine 75 mcg capsule 75 mcg PO DAILY Eliquis 2.5 mg tablet 2.5 mg PO BID albuterol sulfate [ProAir HFA] 90 mcg/actuation HFA aerosol inhaler 1 inh inhalation Q4H PRN (Reason: shortness of breath or wheezing) budesonide 0.5 mg/2 mL suspension for nebulization 0.5 mg inhalation BID ferrous sulfate 220 mg (44 mg iron)/5 mL elixir 220 mg PO QDAY Rx Instructions: PER RETAIL FILL HX - LAST FILLED 09/15/22 FOR A 16 DAY SUPPLY prednisone 20 mg tablet 20 mg PO QDAY Hold Instructions: Doctor's Order Rx Instructions: PER RETAIL FILL HX - LAST FILLED 12/04/22 #30 FOR A 30 DAY SUPPLY pramipexole [Mirapex] 0.5 mg tablet 0.5 mg PO QPM Hold Instructions: Doctor's Order Rx Instructions: administer 2 - 3 hours before bedtime calcitonin (salmon) 200 unit/actuation spray,non-aerosol 1 spray intranasal (ALT) DAILY Rx Instructions: ALTERNATE NOSTRILS DAILY PER RETAIL FILL HX - LAST FILLED 11/20/26 FOR A 30 DAY SUPPLY ondansetron 4 mg tablet,disintegrating 4 mg PO QID PRN (Reason: nausea and vomiting) Rx Instructions: PER RETAIL FILL HX - LAST FILLED 12/14/22 #30 FOR A 10 DAY SUPPLY clopidogrel 75 mg Tablet 75 mg PO QD Qty: 30 11RF Hold Instructions: Doctor's Order water for irrigation, sterile Solution 250 ml G-tube TID 30 Days Qty: 6000 11RF lactulose 10 gram/15 mL (15 mL) Solution 10 g PO TID 30 Days Qty: 1350 11RF Hold Instructions: Doctor's Order linezolid 600 mg tablet 600 mg PO BID 10 Days Qty: 20 0RF Instructions: Costochondritis (ED), Back Pain (ED) Stand Alone Forms: Portal Instructions Referrals: Juvenal Murphy MD [Primary Care Provider] - 1 week
[2023-04-09] MEDS: HYDROMORPHONE HCL 1 MG/ML CARTRIDGE IM (17:26)
== END 2023-04-09 17:38 | disposition home or self-care (01) ==
PROVIDERS: Emergency Provider Emergency Medicine; PCP Family Medicine
DX: R07.81 Pleurodynia (principal); M54.50 Low back pain, unspecified; G89.29 Other chronic pain; J44.9 Chronic obstructive pulmonary disease, unspecified; E11.9 Type 2 diabetes mellitus without complications; I25.2 Old myocardial infarction; Z85.819 Personal history of malignant neoplasm of unspecified site of lip, oral cavity, and pharynx; Z79.899 Other long term (current) drug therapy; Z79.01 Long term (current) use of anticoagulants; Z79.4 Long term (current) use of insulin; Z87.81 Personal history of (healed) traumatic fracture; Z98.890 Other specified postprocedural states; Z95.5 Presence of coronary angioplasty implant and graft; M19.90 Unspecified osteoarthritis, unspecified site; Z87.01 Personal history of pneumonia (recurrent); F17.210 Nicotine dependence, cigarettes, uncomplicated
CPT/HCPCS: 99284; J1170

== ENCOUNTER 2023-05-14 22:20 | Inpatient (IN) | payer MEDICARE, MEDICAID, SELFPAY ==
[2023-05-14 22:28] VITALS: BP 131/57; PULSE 109; RESP 24; TEMP 36.2; O2SAT 92
[2023-05-14 22:30] VITALS: TEMP 37.9
--- OUTSIDE RECORDS SUMMARY | 2023-05-14 22:30 | XMS_ITS | CCD ---
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 Name Role Phone PHYSICIAN, DEFAULT Unavailable Unavailable PHYSICIAN, DEFAULT Unavailable Unavailable Micheal Gutiérrez Unavailable Unavailable Unavailable Micheal Gutiérrez MD Primary Care Provider [phone] Micheal Gutiérrez MD Primary Care Provider [phone] Unavailable Unavailable MD Micheal Gutiérrez Primary Care Provider [phone] MD Bret Guzmanny Attending Provider Micheal Gutiérrez MD Primary Care Provider [phone] Micheal Gutiérrez MD Primary Care Provider [phone] MICHEAL GUTIÉRREZ Primary Care Unavailable IDRIS HAWK Attending Unavailable ALISSA LACKEY Referring Unavailable MICHEAL GUTIÉRREZ Primary Care Unavailable ALISSA LACKEY Referring Unavailable MICHEAL GUTIÉRREZ Primary Care Unavailable DIONICIO NAQVI Referring Unavailable MICHEAL GUTIÉRREZ Primary Care Unavailable ALISSA LACKEY Attending Unavailable MICHEAL GUTIÉRREZ Primary Care Unavailable GUAN, BILLIE A Admitting Unavailabl e GUAN, BILLIE A Attending Unavailabl e GUAN, BILLIE A Referring Unavailabl e GUAN, BILLIE A Admitting Unavailabl e MICHEAL GUTIÉRREZ Primary Care Unavailable GUAN, BILLIE A Attending Unavailabl e MICHEAL GUTIÉRREZ Primary Care Unavailable MICHEAL GUTIÉRREZ Primary Care Unavailable HANSEL OTERO Attending Unavailable MICHEAL GUTIÉRREZ M Primary Care Unavailable SHANNA HANSLE Attending Unavailable GUAN, BILLIE A Attending Unavailabl e MICHEAL GUTIÉRREZ Primary Care Unavailable MICHEAL GUTIÉRREZ Primary Care Unavailable ROTENBERG, PETER Attending Unavailable KWFELA SHOEMAKER Admitting Unavailable HALKER .DEVON Consulting Unavailable LAKSHMIPATHY ., MYNOR Attending Diann vailable LAKSHMIPATHY ., MYNOR Admitting Diann vailable HOY ., DR BUTRON Primary Care Unavailable LAKSHMIPATHY ., MYNOR Attending Diann vailable LAKSHMIPATHY ., MYNOR Consulting Diann vailable LAKSHMIPATHY ., JACQUESATH Admitting Diann vailable HOY ., DR BURTON Primary Care Unavailable RICHA ., ANAHY Admitting Unavailable RICHA ., ANAHY Attending Unavailable ZIABHIJEET, DR DARIAN Taylor Consulting Unavailable HOY ., DR BURTON Primary Care Unavailable RICHA ., ANAHY Consulting Unavailable NATALIE BRAUN Consulting Unavailab leslie MCGOVERN ., DR MULTANI Admitting Unavailable HAY ., DR MULTANI Attending Unavailable HOY ., DR BURTON Primary Care Unavailable ENRICO ., PRIYA MOLINA Consulting UnavailINGA Barragan Consulting Unavailable ZIEBER, DR DARIAN Taylor Consulting Unavailable PAY ., DR CASE Admitting Unavailable PAY ., DR CASE Attending Unavailable HOY ., DR BURTON Primary Care Unavailable PAY ., DR CASE Consulting Unavailable MCWILLIAMS ., MR SHERON Consulting Unavailable SHUKRI HOOD Consulting Unavailable HOY ., DR BURTON Consulting Unavailable HOY ., DR BURTON Primary Care Unavailable HOY ., DR BURTON Attending Unavailable HOY ., DR BURTON Admitting Unavailable ZIEBER, DR DARIAN Taylor Consulting Unavailable ANAMARIA RINCON Consulting Unavailable LAKSHMIPATHY ., NARELISEO Attending Diann vailable LAKSHMIPATHY ., RENATAENDJORDEN Consulting Diann vailable LAKSHMIPATHY ., JACQUESATH Admitting Diann vailable HOY ., DR BURTON Primary Care Unavailable HOY ., DR BURTON Primary Care Unavailable HOY ., DR BURTON Admitting Unavailable HOY ., DR BURTON Attending Unavailable HOY ., DR BURTON Primary Care Unavailable HOY ., DR BURTON Admitting Unavailable HOY ., DR BURTON Attending Unavailable HOY ., DR BURTON Primary Care Unavailable HOY ., DR BURTON Attending Unavailable HOY ., DR BURTON Admitting Unavailable HOY ., DR BURTON Consulting Unavailable [place], DR YENIFER Puckett Consulting Unavailable HOY ., DR BURTON Primary Care Unavailable HOY ., DR BURTON Admregine Unavailable HOY ., DR BURTON Consulting Unavailable HOY ., DR BURTON Attending Unavailable HOY ., DR BURTON Primary Care Unavailable HOY ., DR BURTON Admitting Unavailable HOY ., DR BURTON Attending Unavailable HOY ., DR BURTON Consulting Unavailable HOY ., DR BURTON Consulting Unavailable HOY ., DR BURTON Primary Care Unavailable HOY ., DR BURTON Admregine Unavailable HOY ., DR BURTON Attending Unavailable HOY ., DR BURTON Consulting Unavailable HOY ., DR BURTON Primary Care Unavailable HOY ., DR BURTON Admregine Unavailable HOY ., DR BURTON Attending Unavailable HOY ., DR BURTON Consulting Unavailable HOY ., DR BURTON Primary Care Unavailable HOY ., DR BURTON Admitting Unavailable HOY ., DR BURTON Attending Unavailable HAY ., DR MULTANI Admitting Unavailable HAY ., DR MULTANI Attending Unavailable HOY ., DR BURTON Primary Care Unavailable HAY ., DR MULTANI Consulting Unavailable YANNICK POLANCO Consulting Unavailable GAURAV ARENAS Admitting Unavailable GAURAV ARENAS Attending Unavailable HOY ., DR BURTON Primary Care Unavailable GAURAV ARENAS Consulting Unavailable SHUKRI DING Unavailable NAUN, DR ANAMARIA Taylor Admitting Unavailable NAUN, DR ANAMARIA Taylor Attending Unavailable HOY ., DR BURTON Primary Care Unavailable NAUN, DR ANAMARIA Taylor Consulting Unavailable HOY ., DR BURTON Primary Care Unavailable REINAMARJIT, DR ALVINA Bell Consulting Unavailabl e REINECK, DR ALVINA Bell Admitting Unavailabl e REINECK, DR ALVINA Bell Attending Unavailabl e HOY ., DR BURTON Primary Care Unavailable HOY ., DR BURTON Attending Unavailable HOY ., DR BURTON Admregine Unavailable HOY ., DR BURTON Consulting Unavailable ZIEBER, DR DARIAN Taylor Consulting Unavailable CAROLINAHOOD ROBBINS Consulting Unavailable HOY ., DR BURTON Primary Care Unavailable HOY ., DR BURTON Attending Unavailable HOY ., DR BURTON Admregine Unavailable GRILLIS ., DR SHUKRI Hannon Admitting Unavaila ble HOY ., DR BURTON Primary Care Unavailable GRILLIS ., DR SHUKRI Hannon Attending Unavaila ble HOY ., DR BURTON Primary Care Unavailable HOY ., DR BURTON Admregine Unavailable DENNIS, DR LAURO Tarango Consulting Unavailabl e HOY ., DR BURTON Attending Unavailable MARLA ., DR BURTON Consulting Unavailable MARLA ., DR BURTON Admitting Unavailable MARLA ., DR BURTON Attending Unavailable MARLA ., DR BURTON Primary Care Unavailable REINECK, DR ALVINA Bell Consulting Unavailabl e ZIEBER, DR DARIAN Taylor Consulting Unavailable SHAIKH Carlos OTERO Consulting Unavailable MARLA ., DR BURTON Primary Care Unavailable REINECK, DR ALVINA Bell Consulting Unavailabl e REINECK, DR ALVINA Bell Admitting Unavailabl e REINECK, DR ALVINA Bell Attending Unavailshaheen e MICHEAL CALHOUN Consulting Unavailable MD Micheal Gutiérrez Primary Care Provider [phone] MD Shukri Francisco Emergency Provider [phone] DO Jean-Pierre Otero Admit Provider DO Jean-Pierre Otero Attending Provider Micheal Gutiérrez Primary Care Unavailable Abushawer, Osama Admitting Unavailable Megan, Osama Attending Unavailable Micheal Gutiérrez Primary Care Unavailable Abushawer, Osama Admitting Unavailable Abushawer, Osama Attending Unavailable Rosie Garces Consulting Unavailable Jean-Pierre Otero Admitting Unavailable Prasanna Solomon Attending Unavailable Micheal Gutiérrez Primary Care Unavailable Laura Collins Consulting Unavailable Saige Bassett Consulting Unavailable Lauro Rondon Consulting Unavail able Glenn Kapoor Consulting Unavailable Clifford Hager Consulting Unavailab Rochelle Gann Consulting Unavailable Rea Avalos Consulting Unavailable Suleman, Ivett Najeganesh Consulting Unavailab Maggie Vidales Consulting Unavailable Indira Borges Consulting Unavailable Patsy Pantoja Consulting Unavailable Micheal Gutiérrez MD Primary Care Provider [phone] Lauro Collins Attending Unava robb Collins, Dr. Lauro Tang Referring Unava ilrex Gutiérrez, Dr. Micheal Floyd Primary Care Unavail able Rochelle Benitez Attending Unavailable Rochelle Benitez Referring Unavailable Marla, Dr. Micheal Floyd Primary Care Unavail able Marla, Dr. Micheal Floyd Primary Care Unavail able Marla, Dr. Micheal Floyd Primary Care Unavail able Marla, Dr. Micheal Floyd Primary Care Unavail rex Collins, Dr. Lauro Tang Attending Nina Collins, Dr. Lauro Tang Referring Nina Gutiérrez, Dr. Micheal Floyd Primary Care Unavail rxe Collins, Dr. Laruo Tang Attending Nina Collins, Dr. Lauro Tang Referring Nina Gutiérrez, Dr. Micheal Floyd Primary Care Unavail able Allergies Allergy Classification Reported Allergen(s) Allergy Type Date of Onset Reaction(s) Facility (14 sources) diphenhydrAMINE; Translations: [diphenhydrAMINE] Drug Allergy [facility] y 250 DO Work Phone: (20 sources) Ticagrelor; Translations: [Brilinta TABS] Drug Allergy 2 Shortness of Breath [facility] (9 sources) Angiotensin Converting Enzyme (Jennifer) Inhibitors; Translations: [JENNIFER Inhibitors] Allergy to drug (finding) Hypotension [facility] y 250 DO Work Phone: (1 source) Ticagrelor; Translations: [TICAGRELOR] Drug Allergy 2 [facility] (5 sources) Aspirin; Translations: [Aspirin TABS] Drug Allergy Other [facility] y 250 DO Work Phone: (1 source) diphenhydrAMINE Drug Allergy 3 [facility] Medications Current Medications Medication Drug Class(es) Dates Sig (Normalized) Sig (Original) acetaminophen 325 mg / HYDROcodone bitartrate 10 mg oral tablet (20 sources) Opioid Agonist Start: 07-08-2021 End: 07-18-2021 take 1 tablet by mouth every four hours Hydrocodone-Aceta minophen Active 1 - 2 TAB PO Q4H 20 July 18, 2021 HYDROcodone-Acet aminophen 10-325 MG Oral Tablet TAKE TABLET PRN Quantity: 0 Refills: 0 Ordered: 11-Sep-2021 DO Active take 1 tablet by sully th every four hours as needed HYDROcodone-Acetaminophen (NORCO) 7.5-32 5 mg per tablet Take 1 tablet by mouth every 4 hours as needed for pain. 0 Active Comment on above: Take 1 tablet by sully th every 4 hours as needed for pain. albuterol 0.833 mg/ml / ipratropium bromide 0.167 mg/ml inhalation solution (3 sources) Anticholinergic, beta2-Adrenergic Agonist Start: 07-15-19 take 1 mL by inhalation four times daily Ipratropium-Albuterol Active 3 ML INHALATION Four times daily - Respiratory 90 July 15, 2021 1:00am chlorthalidone 25 mg oral tablet (3 sources) Thiazide-like Diuretic Start: 07-15-19 take 25 mg by mouth once daily in the morning Chlorthalidone Active 25 MG PO Every morning 0 July 15, 2021 1:00am Insulin Aspart U-100 (Novolog Flexpen U-100 Insulin) 100 unit/mL (3 mL) Insulin Pen (6 sources) Start: 07-15-19 Insulin Aspart U-100 (Novolog Flexpen U-100 Insulin) 100 unit/mL (3 mL) Insulin Pen Active 0 UNITS SUBCUT Before meals and at bedtime 0 July 15, 2021 1:00am Start: 07-08-2021 End: 07-15-2021 Insulin Aspart U-100 (Novolo g Flexpen U-100 Insulin) 100 unit/mL (3 mL) Insulin Pen Discontinued 8 - 16 UNIT SUBCUT 3x/Day before meals July 08, 2021 1:00am July 15, 2021 11:52am 8 units for BG 16 units for BG >120 *Per provider office. However, patient has not filled Novolog in the past 12months. 3 ml insulin detemir 100 unt/ml pen injector (20 sources) Insulin Analog Start: 07-15-2021 Insulin Detemi r U-100 (Levemir Flextouch U-100 Insuln) 100 unit/mL (3 mL) Insulin Pen Active 15 UNIT SUBCUT Daily 0 July 15, 2021 1:00am Start: 07-08-2021 End: 07-15-2021 Insulin Detemir U-100 (Levem ir Flextouch U-100 Insuln) 100 unit/mL (3 mL) insulin pen Discontinued 50 UNIT SUBCUT Twice daily July 08, 2021 1:00am July 15, 2021 11:52am Start: 08-05-2020 insulin detemi r U-100 (LEVEMIR) 100 unit/mL injection Inject subcutaneously. 0 08/05/2020 Active Comment on above: Inject subcutaneousl y. levothyroxine sodium 0.075 mg oral tablet (20 sources) l-Thyroxine Start: End: take 75 ug by mouth once daily Levothyroxine Active 75 MCG PO Daily at 0630 0 July 15, 2021 1:00am Comment on above: Take 75 mcg by mouth daily before breakfast. 3 ml liraglutide 6 mg/ml pen injector (3 sources) GLP-1 Receptor Agonist Start: Liraglutide (Victoza 3-Truong) 0.6 mg/0.1 mL (18 mg/3 mL) pen injector Active 1.2 MG SUBCUT Daily 11 20July 15, 2021 1:00am 0.6 mg subcu daily x1 week, then, if well tolerated, increase to one-point milligrams subcu daily meclizine hydrochloride 25 mg oral tablet (3 sources) Antiemetic Start: take 25 mg by mouth three times daily Meclizine Active 25 MG PO Three times daily July 07, 2021 1:00am melatonin 5 mg oral tablet (3 sources) Start: take 5 mg by mouth once daily at bedtime Melatonin Active 5 MG PO Daily at bedtime 0 July 15, 2021 1:00am 24 hr nicotine 0.875 mg/hr transdermal system (11 sources) Cholinergic Nicotinic Agonist Start: apply 1 dose transdermal route once daily Nicotine Active 1 PATCH TRANSDERML Daily 0 July 15, 2021 1:00am Nicotine 21 MG/2 4HR Transdermal Patch 24 Hour Quantity: 0 Refills: 0 Ordered: 11-Sep-2021 DO Active nitrofurantoin, macrocrystals 25 mg / nitrofurantoin, monohydrate 75 mg oral capsule (1 source) Nitrofuran Antibacterial Start: 12-10-2021 End: 12-17-2021 take 1 capsule by mouth twice daily nitrofurantoin monohydrate and macrocrystal (MACROBID) 100 mg capsule Indications: Urinary tract infection without hematuria, site unspecified Take 1 capsule by mouth twice daily for 7 days. 14 capsule 0 12/10/2021 12/17/2021 Active Comment on above: Take 1 capsule by [facility] twice daily for 7 days. spironolactone 25 mg oral tablet (6 sources) Aldosterone Antagonist Start: 07-15-2021 take 25 mg by mouth once daily Spironolactone Active 25 MG PO Daily 0 July 15, 2021 1:00am Start: 07-08-2021 End: 07-15-2021 take 50 mg by mouth once daily Spironolactone Discontinued 50 MG PO Daily July 08, 2021 1:00am July 15, 2021 11:52am daily x4 days (07/06-07/09) tamsulosin hydrochloride 0.4 mg oral capsule (3 sources) alpha-Adrenergic Mikey Start: 07-17-2021 take 0.4 mg by mouth once daily Tamsulosin Active 0.4 MG PO Daily 0 July 17, 2021 1:00am ticagrelor 90 mg oral tablet (3 sources) Start: 07-15-2021 take 1 tablet by mouth twice daily Ticagrelor (Brilinta) 90 mg Tablet Active 90 MG PO Twice daily 0 July 15, 2021 1:00am Completed/Discontinued Medications Medication Drug Class(es) Dates Sig (Normalized) Sig (Original) albuterol 0.83 mg/ml inhalation solution (19 sources) beta2-Adrenergic Agonist take 2.5 mg by inhalation every six hours as needed albuterol (PROVENTIL) 2.5 mg /3 mL (0.083 %) nebulizer solution Inhale 2.5 mg as instructed every 6 hours as needed. 0 Active Comment on above: Inhale 2.5 mg as ins tructed every 6 hours as needed. apixaban 5 mg oral tablet (20 sources) Factor Xa Inhibitor Start: 11-20-2021 take 1 tablet by mouth twice daily apixaban (ELIQUIS) 5 mg tab(s) Take 1 tablet by mouth twice daily. 60 tablet 1 11/20/2021 Active Comment on above: Take 1 tablet by [facility] twice daily. atorvastatin 20 mg oral tablet (19 sources) HMG-CoA Reductase Inhibitor Start: 03-12-2022 take 1 tablet by mouth at bedtime Atorvastatin Calcium 20 MG Oral Tablet TAKE 1 TABLET AT BEDTIME. Quantity: 90 Refills: 3 Ordered: 04-Feb-2023 Lauro Collins DO Start : 12-Mar-2022 Active Start: 07-15-2021 take 80 mg by mouth once daily in the evening Atorvastatin Active 80 MG PO Every evening 0 July 15, 2021 1:00am atropine sulfate 0.025 mg / diphenoxylate hydrochloride 2.5 mg oral tablet (10 sources) Anticholinergic, Cholinergic Muscarinic Antagonist, Antidiarrheal Start: 10-27-2021 diphenoxylate-atropine (LOMOTIL) 2.5-0.025 mg per tablet Start: 10-27-2021 diphenoxylate- atropine (LOMOTIL) 2.5-0.025 mg per tablet take 1 tablet VIA G-TUBE four times a day if needed for diarrhea 0 10/27/2021 Suspended Comment on above: take 1 tablet VIA G- TUBE four times a day if needed for diarrhea budesonide 0.125 mg/ml inhalation suspension (19 sources) Corticosteroid budesonide (PULM ICORT) 0.25 mg/2 mL nebulizer solution Use 0.25 mg via nebulizer twice daily. 0 Active Comment on above: Use 0.25 mg via nebu lizer twice daily. carvedilol 12.5 mg oral tablet (19 sources) alpha-Adrenergic Mikey, beta-Adrenergic Mikey Start: 11-15-2021 carvedilol (COREG) 12.5 mg tablet Start: 07-15-2021 take 25 mg by mouth twice daily at mealtime Carvedilol Active 25 MG PO Twice daily with meals 0 July 15, 2021 1:00am take 0.5 tablet by m outh twice daily Carvedilol 12.5 MG Oral Tablet TAKE 1/2 TABLET TWICE DAILY. Quantity: 90 Refills: 3 Ordered: 04-Feb-2023 Lauro Collins DO Active take 0.5 tablet by m outh twice daily Carvedilol 25 MG Oral Tablet TAKE 0.5 TABLET Twice daily Quantity: 90 Refills: 3 Ordered: 11-Sep-2021 DO Active clopidogrel 75 mg oral tablet (20 sources) P2Y12 Platelet Inhibitor Start: 10-24-2021 take 1 tablet by mouth once daily clopidogrel (PLAVIX) 75 mg tablet Take 75 mg by mouth once daily. 0 10/24/2021 Active Comment on above: Take 75 mg by mouth once daily. dilTIAZem hydrochloride 60 mg oral tablet (2 sources) Calcium Channel Mikey Start: 02-05-2023 take 1 tablet by mouth twice daily dilTIAZem HCl - 60 MG Oral Tablet one pill twice daily Quantity: 180 Refills: 3 Ordered: 05-Feb-2023 Dennis CHOUDHARY Lauro Start : 05-Feb-2023 Active take 0.5 capsule by mouth twice daily dilTIAZem HCl ER 60 MG Oral Capsule Extended Release 12 Hour TAKE 0.5 CAPSULE Twice daily Quantity: 90 Refills: 3 Ordered: 04-Feb-2023 Lauro Collins DO Active doxazosin 2 mg oral tablet (9 sources) alpha-Adrenergic Mikey Start: 11-20-2021 End: 12-23-2021 take 1 tablet by mouth once daily doxazosin (CARDURA) 2 mg tablet Take 1 tablet by mouth once daily. 30 tablet 1 11/20/2021 12/23/2021 Discontinued (Course of therapy completed) Comment on above: Take 1 tablet by sully th once daily. erythromycin ethylsuccinate 40 mg/ml oral suspension (6 sources) Macrolide, Macrolide Antimicrobial Start: 11-03-2021 erythromycin ethyl succinate (E.E.S.) 200 mg/5 mL suspension give 2 teaspoonfuls VIA G-TUBE twice a day 0 11/03/2021 Active Comment on above: give 2 teaspoonfuls VIA G-TUBE twice a day ferrous sulfate 325 mg delayed release oral tablet (20 sources) take 0.25 tablet by mouth once daily Ferrous Sulfate 325 (65 Fe) MG Oral Tablet Delayed Release taking 1/4 tablet daily. Quantity: 0 Refills: 0 Ordered: 09-Nov-2022 DO Active take 220 mg by mouth once daily ferrous sulfate 220 mg (44 mg iron)/5 mL elixir Take 220 mg by mouth once daily. 0 Active Comment on above: Take 220 mg by mouth once daily. finasteride 5 mg oral tablet (20 sources) 5-alpha Reductase Inhibitor Start: 02-17-2022 End: 02-17-2022 take 1 tablet by mouth once daily finasteride (PROSCAR) 5 mg tablet Take 1 tablet by mouth once daily. 90 tablet 3 02/17/2022 Active Comment on above: Take 5 mg by mouth o nce daily. Take 5 mg by mouth o nce daily. Take 5 mg by mouth daily Take 1 tablet by sully th once daily. furosemide 10 mg/ml oral solution (14 sources) Loop Diuretic Start: 11-18-2021 furosemide (LASIX) 10 mg/mL solution Start: 10-24-2021 furosemide (LA SIX) 10 mg/mL solution give 2 milliliters PER G-TUBE once daily as directed 0 10/24/2021 Active Start: 11-26-2020 furosemide (LA SIX) 20 mg tablet Take 20 mg by mouth. 0 11/26/2020 Suspended Comment on above: give 2 milliliters P ER G-TUBE once daily as directed Take 20 mg by mouth. hyoscyamine sulfate 0.125 mg/ml oral solution (20 sources) Start: 10-27-2021 take 1 mL by mouth four times daily HYOSYNE 0.125 mg/mL solution TAKE 1 MLS BY MOUTH FOUR TIMES A DAY IF NEEDED 0 11/04/2021 Active Hyoscyamine Sulf ate 0.125 MG Sublingual Tablet Sublingual Dissolve under tongue 30 minutes before eating Quantity: 0 Refills: 0 Ordered: 11-Sep-2021 DO Active Comment on above: TAKE 1 MLS BY MOUTH FOUR TIMES A DAY IF NEEDED insulin aspart, human (6 sources) Insulin Analog Start: 08-07-2021 INSULIN ASPART U-100 SUBCUTANEOUS Inject subcutaneously. 0 08/07/2021 Suspended Start: 08-07-2021 INSULIN ASPART U-100 SUBCUTANEOUS Inject subcutaneously. 0 08/07/2021 Active Comment on above: Inject subcutaneously. 3 ml insulin glargine 100 unt/ml pen injector (14 sources) Insulin Analog Start: inject 10 [IU] by subcutaneous injection once daily LANTUS SOLOSTAR U-100 INSULIN 100 unit/mL (3 mL) inject 10 unit subcutaneously daily 0 01/14/2022 Active Comment on above: inject 10 unit subcutaneously daily 3 ml insulin lispro 100 unt/ml pen injector (10 sources) Insulin Analog Start: inject 4 [IU] by subcutaneous injection at mealtime HUMALOG KWIKPEN INSULIN 100 unit/mL INJECT SUBCUTANEOUSLY WITH MEALS 4 UNITS IF BS LESS THAN 120, 8 UNITS IF BS GREATER THAN 120 0 10/18/2021 Active Comment on above: INJECT SUBCUTANEOUSLY WITH MEALS 4 UNITS IF BS LESS THAN 120, 8 UNITS IF BS GREATER THAN 120 iv contrast (will be provided with radiology test) (2 sources) Start: End: 07-15-2 022 iv contrast (will be provided with radiology test) Indications: Other specified disorders of kidney and ureter MRI Kidney Inject, intravenously, once for 1 dose. No IV access, insert saline lock prior to the beginning of sedation, infusion, injection of imaging exam. Discontinue saline lock post exam. If Pt. has a central line or IVAD, may access for administration according to line specific nursing protocol. Once exam is complete flush line and de-access according to line specific nursing protocol in the MR contrast administration guidelines link. 1 Each 0 12/04/2021 12/05/2021 Start: 11-27-2021 End: 11-28-2021 iv contrast (will be provide d with radiology test) Indications: Renal lesion CT kidney wow Inject, intravenously, once for 1 dose.No IV access, insert saline lock prior to the beginning of sedation, infusion, injection of imaging exam. Discontinue saline lock post exam. If Pt. has a central line or IVAD, may access for administration according to line specific nursing protocol. Once exam is complete flush line and de-access according to line specific nursing protocol in the CT contrast administration guidelines link. 1 Each 0 11/27/2021 11/28/2021 Active Comment on above: CT kidney wow Inject , intravenously, once for 1 dose.No IV access, insert saline lock prior to the beginning of sedation, infusion, injection of imaging exam. Discontinue saline lock post exam. If Pt. has a central line or IVAD, may access for administration according to line specific nursing protocol. Once exam is complete flush line and de-access according to line specific nursing protocol in the CT contrast administration guidelines link. MRI Kidney Inject, i ntravenously, once for 1 dose. No IV access, insert saline lock prior to the beginning of sedation, infusion, injection of imaging exam. Discontinue saline lock post exam. If Pt. has a central line or IVAD, may access for administration according to line specific nursing protocol. Once exam is complete flush line and de-access according to line specific nursing protocol in the MR contrast administration guidelines link. Lactulose (2 sources) Osmotic Laxative Constulose SOLN 30mg in moring Quantity: 0 Refills: 0 Ordered: 04-Feb-2023 DO Active levoFLOXacin 500 mg oral tablet (6 sources) Quinolone Antimicrobial Start: 12-20-19 levoFLOXacin (LEVAQUIN) 500 mg tablet take 1 tablet VIA G-TUBE once daily CRUSH TABLET WITH SMALL AMOUNT OF WATER PER TUBE 0 12/19/2021 Active Comment on above: take 1 tablet VIA G- TUBE once daily CRUSH TABLET WITH SMALL AMOUNT OF WATER PER TUBE lisinopril 10 mg oral tablet (3 sources) Angiotensin Converting Enzyme Inhibitor Start: 07-07-19 End: 07-15-19 take 10 mg by mouth once daily Lisinopril Discontinued 10 MG PO Daily July 07, 2021 1:00am July 15, 2021 11:52am nutritional supplements (NUTREN 1.5) 0.07 gram-1.5 kcal/mL liqd (19 sources) Start: 11-21-19 nutritional supplements (NUTREN 1.5) 0.07 gram-1.5 kcal/mL liqd 1,430 mL/day by FEEDING TUBE route continuous. Enteral Nutrition Tube Feeding Formula Type: Nutren 1.5 or equivalent Goal Rate (mL/hr x hours): 65 ml/hr x 22 hrs, 1430 ml formula provides 2145 kcals, 97 g, and 1093 ml free water (hold TF 1 hr before and after synthroid administration) Water Flush Volume (mL x frequency: 90 ml Q4H Recommended Enteral Access: Small bore feeding tube (Nasogastric- Corpak) Cans: 4.5 per day 2860 mL 11 11/20/2021 Suspended Start: 11-20-2021 nutritional burrell pplements (NUTREN 1.5) 0.07 gram-1.5 kcal/mL liqd 1,430 mL/day by FEEDING TUBE route continuous. Enteral Nutrition Tube Feeding Formula Type: Nutren 1.5 or equivalent Goal Rate (mL/hr x hours): 65 ml/hr x 22 hrs, 1430 ml formula provides 2145 kcals, 97 g, and 1093 ml free water (hold TF 1 hr before and after synthroid administration) Water Flush Volume (mL x frequency: 90 ml Q4H Recommended Enteral Access: Small bore feeding tube (Nasogastric- Corpak) Cans: 4.5 per day 2860 mL 11 11/20/2021 Active Comment on above: 1,430 mL/day by FEED ING TUBE route continuous. Enteral Nutrition Tube Feeding Formula Type: Nutren 1.5 or equivalent Goal Rate (mL/hr x hours): 65 ml/hr x 22 hrs, 1430 ml formula provides 2145 kcals, 97 g, and 1093 ml free water (hold TF 1 hr before and after synthroid administration) Water Flush Volume (mL x frequency: 90 ml Q4H Recommended Enteral Access: Small bore feeding tube (Nasogastric- Corpak) Cans: 4.5 per day nutritional supplements 0.07 gram-1.5 kcal/mL liqd (2 sources) Start: 02-04-20 take 250 mL enteral route every three hours nutritional supplements 0.07 gram-1.5 kcal/mL liqd 250 mL by FEEDING TUBE route every 3 hours. Bolus 250 mL Nutren 1.5 every 3 hours during waking hours (total of 6 bolus feeds per day); water flush of 90 mL pre and post bolus feeds 92318 mL 02/03/2022 Active Comment on above: 250 mL by FEEDING TU BE route every 3 hours. Bolus 250 mL Nutren 1.5 every 3 hours during waking hours (total of 6 bolus feeds per day); water flush of 90 mL pre and post bolus feeds pantoprazole 40 mg delayed release oral tablet (20 sources) Proton Pump Inhibitor Start: 02-04-20 pantoprazole (PROTONIX) 2 mg/mL oral liquid Take 10 mL by mouth DAILY (6 AM). 300 mL 0 02/03/2022 Active Start: 07-07-2021 End: 11-27-[address] (PROTONIX) 4 0 mg tablet take 1 tablet by sully three times daily Pantoprazole Sodium 40 MG Oral Tablet Delayed Release 1 tab 3 times a day Quantity: 0 Refills: 0 Ordered: 04-Feb-2023 DO Active take 1 tablet by sully th once daily Pantoprazole Sodium 20 MG Oral Tablet Delayed Release TAKE 1 TABLET DAILY. Quantity: 0 Refills: 0 Ordered: 09-Nov-2022 DO Active Comment on above: Take 20 mL by mouth DAILY (6 AM). Take 10 mL by mouth DAILY (6 AM). pantoprazole oral liquid 2 mg/mL (CPD) (17 sources) Start: 02-03-2022 take 2 mg by mouth once daily pantoprazole oral liquid 2 mg/mL (CPD) Take 10mL by mouth daily at 6am 300 mL 0 02/03/2022 Active Start: 11-27-2021 End: 02-03-2022 pantoprazole oral liquid 2 m g/mL (CPD) Take 20 mL by mouth DAILY (6 AM). 600 mL 1 11/27/2021 02/03/2022 Discontinued Start: 11-27-2021 pantoprazole o ral liquid 2 mg/mL (CPD) Take 20 mL by mouth DAILY (6 AM). 600 mL 1 11/27/2021 Suspended Start: 11-27-2021 pantoprazole o ral liquid 2 mg/mL (CPD) Take 20 mL by mouth DAILY (6 AM). 600 mL 1 11/27/2021 Active Comment on above: Take 20 mL by mouth DAILY (6 AM). Take 10mL by mouth d aily at 6am potassium phosphate 155 mg / sodium phosphate, dibasic 852 mg / sodium phosphate, monobasic 130 mg oral tablet (19 sources) Start: 11-21-19 take 1 tablet by mouth once daily phosphorus (PHOSPHA 250 NEUTRAL) 250 mg tablet Take 1 tablet by mouth once daily. 30 tablet 1 11/20/2021 Active Comment on above: Take 1 tablet by sully once daily. pramipexole dihydrochloride 0.5 mg oral tablet (20 sources) Nonergot Dopamine Agonist Start: 07-07-19 End: 01-25-20 pramipexole (MIRAPEX) 0.5 mg tablet Take 0.5 mg by mouth as needed. 0 08/07/2021 01/24/2022 Discontinued Comment on above: Take 0.5 mg by mouth as needed. sacubitril 24 mg / valsartan 26 mg oral tablet (20 sources) Angiotensin 2 Receptor Mikey Start: 07-15-19 take 1 tablet by mouth twice daily ENTRESTO 24-26 mg tablet Take 1 tablet by mouth twice daily. 0 09/29/2021 Active Comment on above: Take 1 tablet by sully th twice daily. traZODone hydrochloride 50 mg oral tablet (14 sources) Serotonin Reuptake Inhibitor Start: 12-18-19 traZODone (DESYREL) 50 mg tablet take 1 tablet by mouth at bedtim e traZODone HCl - 100 MG Oral Tablet TAKE 1 TABLET AT BEDTIME. Quantity: 0 Refills: 0 Ordered: 11-Sep-2021 DO Active Trelegy Ellipta 200-62.5-25 MCG/INH Inhalation Aerosol Powder Breath Activated (9 sources) Alana Ellipta 200-62.5-25 MCG/INH Inhalation Aerosol Powder Breath Activated Quantity: 0 Refills: 0 Ordered: 11-Sep-2021 DO Active Problems Active Problems Problem Classification Problem Date Documented Da te Episodic/Chronic Acute and unspecified renal failure (3 sources) Injury of kidney; Translations: [Acute kidney failure, unspecified] 07-07-2021 Episodic Acute myocardial infarction (3 sources) Myocardial infarction; Translations: [Non-ST elevation (NSTEMI) myocardial infarction] 07-07-2021 Chronic Aspiration pneumonitis; food/vomitus (1 source) Pneumonitis due to inhalation of food and vomit; Translations: [PNEUMONITIS D/T INHAL FOOD AND VOMIT] Onset: 08-04-2022 Episodic Bacterial infection; unspecified site (2 sources) History of methicillin resistant Staphylococcus aureus infection; Translations: [Personal history of Methicillin resistant Staphylococcus aureus] Episodic Cancer of head and neck (4 sources) Personal history of malignant neoplasm of unspecified site of lip, oral cavity, and pharynx; Translations: [Personal history of malignant neoplasm of larynx] Onset: 09-15-2022 Episodic Cardiac arrest and ventricular fibrillation (8 sources) Cardiac arrest; Translations: [Cardiac arrest] Chronic Cardiac dysrhythmias (20 sources) Atrial fibrillation; Translations: [Unspecified atrial fibrillation] Onset: 11-10-2021 11-10-2021 Chronic Chronic obstructive pulmonary disease and bronchiectasis (20 sources) Chronic obstructive lung disease; Translations: [Chronic airway obstruction, not elsewhere classified] Onset: 12-18-2021 Chronic Congestive heart failure; nonhypertensive (20 sources) Congestive heart failure stage C; Translations: [Congestive heart failure, unspecified] Onset: 12-24-2021 Chronic Coronary atherosclerosis and other heart disease (20 sources) Ischemic myocardial dysfunction; Translations: [Other specified forms of chronic ischemic heart disease] Onset: 11-10-2021 11-10-2021 Chronic Deficiency and other anemia (1 source) Iron deficiency anemia, unspecified; Translations: [IRON DEFICIENCY ANEMIA UNSPECIFIED] Onset: 08-20-2022 Episodic Deficiency and other anemia (1 source) Anemia, unspecified; Translations: [ANEMIA UNSPECIFIED] Onset: 08-04-2022 Episodic Diabetes mellitus with complications (2 sources) Type 2 diabetes mellitus with hyperglycemia; Translations: [Type 2 diabetes mellitus with diabetic peripheral angiopathy without gangrene] Onset: 07-03-2022 Chronic Diabetes mellitus without complication (15 sources) Diabetes mellitus; Translations: [Type 2 diabetes mellitus without complications] Onset: 04-08-2022 07-07-2021 Chronic Diseases of white blood cells (8 sources) Elevated white blood cell count, unspecified; Translations: [Leukocytosis] Onset: 12-19-2021 Chronic Disorders of lipid metabolism (19 sources) Hyperlipidemia; Translations: [Other and unspecified hyperlipidemia] Chronic Esophageal disorders (1 source) Gastro-esophageal reflux disease without esophagitis; Translations: [GERD WITHOUT ESOPHAGITIS] Onset: 10-06-2022 Chronic Essential hypertension (4 sources) Hypertensive disorder; Translations: [Essential (primary) hypertension] Onset: 07-01-2022 07-10-2021 Chronic Gastroduodenal ulcer (except hemorrhage) (4 sources) Gastric ulcer, unspecified as acute or chronic, without hemorrhage or perforation; Translations: [GASTR ULCR UNS AC/CHRN W/O HEM/PERF] Onset: 07-30-2022 Chronic Hypertension with complications and secondary hypertension (1 source) Hypertensive heart disease with heart failure; Translations: [HTN HEART DISEASE W/HEART FAIL] Onset: 05-13-2022 Chronic Immunizations and screening for infectious disease (20 sources) Patient encounter status; Translations: [Other specified vaccination] Episodic Malaise and fatigue (4 sources) Weakness; Translations: [Other fatigue] Onset: 05-13-2022 Episodic Menopausal disorders (1 source) Hormone replacement therapy; Translations: [HORMONE REPLACEMENT THERAPY] Onset: 10-06-2022 Episodic Mood disorders (1 source) Major depressive disorder, single episode, unspecified; Translations: [VENICE DEPRESS D/O SINGLE EPIS UNS] Onset: 04-06-2022 Chronic Mood disorders (1 source) Mood disorders; Translations: [DEPRESSION UNSPECIFIED] Onset: 10-06-2022 Nausea and vomiting (4 sources) Nausea with vomiting, unspecified; Translations: [NAUSEA WITH VOMITING UNSPECIFIED] Onset: 09-11-2022 Episodic Nonspecific chest pain (20 sources) Chest discomfort; Translations: [Other chest pain] Onset: 05-08-2022 Episodic Nutritional deficiencies (20 sources) Deficiency of macronutrients; Translations: [Unspecified severe protein-calorie malnutrition] Onset: 11-10-2021 11-10-2021 Chronic Osteoarthritis (1 source) Unspecified osteoarthritis, unspecified site; Translations: [UNSPECIFIED OSTEOARTHRITIS UNS SITE] Onset: 10-06-2022 Chronic Other aftercare (11 sources) Drug therapy finding; Translations: [Long-term (current) use of anticoagulants] Episodic Other aftercare (1 source) Other intermission coordinator (current) drug therapy; Translations: [OTH PARCEL POST TRUCK DRIVER CURRENT DRUG THERAPY] Onset: 10-06-2022 Episodic Other aftercare (1 source) rat exterminator (current) use of anticoagulants; Translations: [PENITENTIARY CURRNT USE ANTICOAGULANTS] Onset: 10-06-2022 Episodic Other aftercare (1 source) rat exterminator (current) use of insulin; Translations: [PARCEL POST TRUCK DRIVER CURRENT USE OF INSULIN] Onset: 10-06-2022 Episodic Other bone disease and musculoskeletal deformities (1 source) Osteonecrosis, unspecified; Translations: [OSTEONECROSIS UNSPECIFIED] Onset: 04-06-2022 Chronic Other circulatory disease (11 sources) Sympathotonic orthostatic hypotension; Translations: [Orthostatic hypotension] Episodic Other connective tissue disease (1 source) Other muscle spasm; Translations: [OTHER MUSCLE SPASM] Onset: 07-22-2022 Episodic Other diseases of kidney and ureters (1 source) Disorder of kidney and/or ureter; Translations: [Other specified disorders of kidney and ureter] Chronic Other diseases of kidney and ureters (2 sources) Kidney lesion; Translations: [Disorder of kidney and ureter, unspecified] Episodic Other fractures (4 sources) Collapsed vertebra, not elsewhere classified, lumbar region, initial encounter for fracture; Translations: [COLLAPSED VERT NEC LUMBAR INIT ENC] Onset: 07-16-2022 Episodic Other gastrointestinal disorders (1 source) History of placement of gastrostomy tube; Translations: [Gastrostomy status] Chronic Other gastrointestinal disorders (2 sources) Gastrostomy status; Translations: [S/P percutaneous endoscopic gastrostomy (PEG) tube placement (HCC)] Onset: 07-10-2022 Chronic Other gastrointestinal disorders (3 sources) Dysphagia; Translations: [Dysphagia, unspecified] 07-14-2021 Episodic Other gastrointestinal disorders (1 source) Constipation, unspecified; Translations: [CONSTIPATION UNSPECIFIED] Onset: 10-06-2022 Episodic Other gastrointestinal disorders (1 source) Dysphagia, unspecified; Translations: [Dysphagia, unspecified] Onset: 11-25-2022 Episodic Other hereditary and degenerative nervous system conditions (1 source) Restless legs syndrome; Translations: [RESTLESS LEGS SYNDROME] Onset: 10-06-2022 Chronic Other lower respiratory disease (1 source) Dyspnea on exertion; Translations: [Shortness of breath] Episodic Other lower respiratory disease (1 source) Chronic cough; Translations: [Chronic cough] Episodic Other nervous system disorders (1 source) Other chronic pain; Translations: [OTHER CHRONIC PAIN] Onset: 06-25-2022 Chronic Other non-epithelial cancer of skin (1 source) Personal history of other malignant neoplasm of skin; Translations: [PERSONAL HX OTH MALIG NEOPLASM SKIN] Onset: 10-06-2022 Episodic Other nutritional; endocrine; and metabolic disorders (11 sources) Body mass index less than 20; Translations: [Body mass index (BMI) 19.9 or less, adult] Episodic Other nutritional; endocrine; and metabolic disorders (5 sources) Weight loss; Translations: [Loss of weight] Episodic Other nutritional; endocrine; and metabolic disorders (1 source) Body mass index (BMI) 19.9 or less, adult; Translations: [BODY MASS INDEX 19.9 OR LESS ADULT] Onset: 08-20-2022 Episodic Cara-; endo-; and myocarditis; cardiomyopathy (except that caused by tuberculosis or sexually transmitted disease) (4 sources) Cardiomyopathy; Translations: [Cardiomyopathy, unspecified] Onset: 11-25-2022 07-08-2021 Chronic Peripheral and visceral atherosclerosis (20 sources) Peripheral vascular disease; Translations: [Peripheral vascular disease, unspecified] Onset: 10-06-2022 Chronic Pneumonia (except that caused by tuberculosis or sexually transmitted disease) (4 sources) Pneumonia; Translations: [Pneumonia, unspecified organism] Onset: 11-25-2022 07-07-2021 Episodic Residual codes; unclassified (11 sources) Body mass index 20-24 - normal; Translations: [Body Mass Index between 19-24, adult] Episodic Residual codes; unclassified (1 source) Other specified postprocedural states; Translations: [OTH SPECIFIED POSTPROCEDURAL STATES] Onset: 08-20-2022 Episodic Respiratory failure; insufficiency; arrest (adult) (5 sources) Alveolar hypoventilation; Translations: [Respiratory failure, unspecified with hypoxia] Onset: 11-25-2022 07-07-2021 Episodic Septicemia (except in labor) (3 sources) Sepsis; Translations: [Sepsis, unspecified organism] 07-07-2021 Episodic Spondylosis; intervertebral disc disorders; other back problems (4 sources) Other intervertebral disc degeneration, lumbar region; Translations: [OTH IV DISC DEGEN LUMBAR REGION] Onset: 05-24-2022 Chronic Spondylosis; intervertebral disc disorders; other back problems (4 sources) Muscle spasm of back; Translations: [Sacrococcygeal disorders, not elsewhere classified] Onset: 04-18-2022 Episodic Substance-related disorders (20 sources) Smoker; Translations: [Tobacco use disorder] Onset: 10-06-2022 Chronic Comment on above: 5 cigarettes; 1 ppd; Thyroid disorders (19 sources) Hypothyroidism; Translations: [Hypothyroidism, unspecified] Onset: 11-21-2021 11-21-2021 Chronic Unclassified (1 source) clogged NG tube Onset: 12-31-2021 Unclassified (4 sources) LOW BACK PAIN, UNSPECIFIED; Translations: [LOW BACK PAIN, UNSPECIFIED] Onset: 07-03-2022 Unclassified (1 source) CONTACT W/AND (SUSP) EXPOS COVID-19; Translations: [CONTACT W/AND (SUSP) EXPOS COVID-19] Onset: 08-20-2022 Unclassified (1 source) 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; Translations: [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] Onset: 08-04-2022 Past or Other Problems Problem Classification Problem Date Documented Da te Episodic/Chronic Abdominal pain (5 sources) Generalized abdominal pain; Translations: [Right upper quadrant pain] Onset: 2 Episodic Administrative/social admission (5 sources) Encounter for issue of repeat prescription; Translations: [ENC FOR ISSUE REPEAT PRESCRIPTION] Onset: 3 Episodic Biliary tract disease (1 source) Calculus of gallbladder and bile duct without cholecystitis without obstruction; Translations: [CALCU GB BD W/O CHOLCYST W/O OBST] Onset: 2 Episodic Cancer; other and unspecified primary (1 source) Personal history of malignant neoplasm of other organs and systems; Translations: [PERS HX MALIG NEOPLASM OTH ORGN AND SYS] Onset: 2 Episodic Cardiac dysrhythmias (18 sources) Bradycardia; Translations: [Bradycardia, unspecified] Onset: 2 11-21-2021 Episodic Complication of device; implant or graft (5 sources) Finding of gastrointestinal device; Translations: [Other mechanical complication of other gastrointestinal prosthetic devices, implants and grafts, initial encounter] Onset: 2 Episodic Coronary atherosclerosis and other heart disease (2 sources) Coronary angioplasty status; Translations: [Presence of coronary angioplasty implant and graft] Onset: 2 Episodic E Codes: Fall (1 source) Unspecified fall, initial encounter; Translations: [UNSPECIFIED FALL INITIAL ENCOUNTER] Onset: 2 Episodic Fluid and electrolyte disorders (20 sources) Hypokalemia; Translations: [Hypokalemia] Onset: 2 11-15-2021 Episodic Genitourinary symptoms and ill-defined conditions (20 sources) Retention of urine; Translations: [Retention of urine, unspecified] Onset: 2 11-21-2021 Episodic Other circulatory disease (19 sources) History of cardiac arrest; Translations: [Personal history of sudden cardiac arrest] Onset: 2 11-10-2021 Episodic Other circulatory disease (1 source) Personal history of sudden cardiac arrest; Translations: [History of cardiac arrest] Onset: 2 Episodic Other diseases of kidney and ureters (1 source) Disorder of kidney and ureter, unspecified; Translations: [Renal lesion] Onset: 2 Episodic Other fractures (1 source) Unspecified fracture of first lumbar vertebra, initial encounter for closed fracture; Translations: [UNS FX FIRST LUMB VERT INIT CLOS FX] Onset: 3 Episodic Other gastrointestinal disorders (19 sources) Diarrhea; Translations: [Diarrhea, unspecified] Onset: 2 11-10-2021 Episodic Other gastrointestinal disorders (19 sources) Pharyngeal dysphagia; Translations: [Dysphagia, pharyngeal phase] Onset: 2 11-15-2021 Episodic Other gastrointestinal disorders (5 sources) Diarrhea, unspecified; Translations: [Diarrhea] Onset: 2 Episodic Other gastrointestinal disorders (2 sources) Dysphagia, oropharyngeal phase; Translations: [Dysphagia, oropharyngeal] Onset: 2 Episodic Other nutritional; endocrine; and metabolic disorders (7 sources) Adult failure to thrive syndrome; Translations: [Adult failure to thrive] Onset: 2 Episodic Other nutritional; endocrine; and metabolic disorders (2 sources) Adult failure to thrive; Translations: [Adult failure to thrive] Onset: 2 Episodic Residual codes; unclassified (1 source) Other specified personal risk factors, not elsewhere classified; Translations: [At high risk for aspiration] Onset: 2 Episodic Superficial injury; contusion (1 source) Contusion of lower back and pelvis, initial encounter; Translations: [CONTUSION LOWER BACK PELVIS INITIAL] Onset: 2 Episodic Unclassified (1 source) LOW BACK PAIN, UNSPECIFIED; Translations: [LOW BACK PAIN, UNSPECIFIED] Onset: 3 Results Test Name Value Interpretation Reference Range Facility Office Visit (Cardiology)on 02-04-2023 Follow-up visit Diagnoses/Problems Assessed Body mass index (BMI) of 19.9 or less in adult (Z68.1) CHF (NYHA class II, ACC/AHA stage C) (428.0) (I50.9) Coronary artery disease involving [place] coronary artery of [place] heart without angina pectoris (414.01) (I25.10) History of PTCA (V45.82) (Z98.61) Ischemic cardiomyopathy (414.8) (I25.5) Paroxysmal atrial fibrillation (427.31) (I48.0) PVD (peripheral vascular disease) (443.9) (I73.9) Hyperlipidemia (272.4) (E78.5) Diabetes mellitus (250.00) (E11.9) Current smoker (305.1) (F17.200) 1 ppd History of throat cancer (V10.02) (Z85.819) COPD (chronic obstructive pulmonary disease) (496) (J44.9) History of CA (myocardial infarction) (412) (I25.2) History of MRSA infection (V12.04) (Z86.14) Orders Body mass index (BMI) of 19.9 or less in adult Healthy Weight Tips; Status:Complete - Retrospective Authorization; Done: [id number] CHF (NYHA class II, ACC/AHA stage C), Health Maintenance, History of CA (myocardial infarction), Ischemic cardiomyopathy Renew: dilTIAZem HCl ER 60 MG Oral Capsule Extended Release 12 Hour; TAKE 0.5 CAPSULE Twice daily CHF (NYHA class II, ACC/AHA stage C), History of CA (myocardial infarction), History of PTCA Renew: Eliquis 5 MG Oral Tablet; Take 1 tablet twice daily CHF (NYHA class II, ACC/AHA stage C), Paroxysmal atrial fibrillation Renew: Carvedilol 12.5 MG Oral Tablet; TAKE 1/2 TABLET TWICE DAILY Coronary artery disease involving [place] coronary artery of [place] heart without angina pectoris, Hyperlipidemia Renew: Atorvastatin Calcium 20 MG Oral Tablet; TAKE 1 TABLET AT BEDTIME SocHx: Current smoker You need to stop smoking. Though it is not easy, more than half of all adult smokers have quit. We encourage you to write down all the reasons you should quit smoking and set a quit date for yourself. Ask us how we can help. You may also call 5-379-QZNGDecoholicNOW for free resources and assistance.; Status:Complete - Retrospective Authorization; Done: [id number] Tobacco Use Screening; Status:Complete; Done: [id number] Patient Instructions Please bring all medicines, vitamins, and herbal supplements with you when you come to the office. Prescriptions will not be filled unless you are compliant with your follow up appointments or have a follow up appointment scheduled as per instruction of your physician. Refills should be requested at the time of your visit. Fall prevention education given Follow up in 6 months with Rochelle Castro NP Chief Complaint FRANKI HERNANDEZ is being seen for med change, soon o/v. Patient is a 83-year-old gentleman returns for follow-up. He has had several hospitalizations over the past 6 months at [facility] for shortness of breath, dyspnea, A-fib, dehydration with hyperkalemia. He has known history of ASHD with ischemic cardiomyopathy with improved left ventricular function per last measurement by echo with ejection fraction up to 45 to 50%. 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 on tobacco cessation for 3 to 5 minutes today; we will follow-up in 6 months with nurse practitioner with no further changes to his medical regimen at this time Surgical History Problems History of Cardiac catheterization with stent placement History of Cataract surgery History of Complete colonoscopy Managed By: Shukri Poole MD (General Surgery) History of Epiglottidectomy History of Esophagogastroduodenoscopy History of Excision of basal cell carcinoma History of Lower back surgery History of Percutaneous endoscopic gastrostomy tube insertion 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 Cardizem SR 60 MG CP121/2 tab twice daily Carvedilol 12.5 MG Oral TabletTAKE 1/2 TABLET TWICE DAILY. Constulose [id number] in moring Eliquis 5 MG Oral TabletTake 1 tablet twice daily Ferrous Sulfate 325 (65 Fe) MG Oral Tablet Delayed Releasetaking 1/4 tablet daily. Finasteride 5 MG Oral TabletTAKE 1 TABLET DAILY. HYDROcodone-Acetaminophen 10-325 MG Oral TabletTAKE TABLET PRN Lantus SoloStar 100 UNIT/ML Subcutaneous Solution Pen-injectorUSE DIRECTED. Levothyroxine Sodium 75 MCG Oral TabletTake 1 tablet daily Pantoprazole Sodium 40 MG Oral Tablet Delayed Release1 tab 3 times a day Allergies Medication JENNIFER Inhibitors Hypotension;; Recorded By: Rochelle Herrmann; 02/23/2022 12:50:26 PM Brilinta TABS Adverse Reaction; Shortness of breath;; Recorded By: Carly Howard; 09/11/2021 9:51 (more content not included)... Normal Decision Pace Tobacco Screening.on 023 Fall risk assessment b) One or more fall s in the last year [facility] [address]ier 250 DO Work Phone: Tobacco use status [facility] a) Yes [facility] [address] 250 DO Work Phone: Tobacco Screening. Yes [facility]u marika 250 DO Work Phone: Lab Reportson 01-01-2023 Lab Reports [id number]#1.00CD:127 [facility] Lab Reports [id number]#1.00CD:127 [facility] Lab Reports [id number]#1.00CD:127 [facility] Lab Reports [id number]#1.00CD:127 [facility] Lab Reports [id number]#1.00CD:127 [facility] Lab Reports [id number]#1.00CD:127 [facility] Lab Reports [id number]#1.00CD:127 [facility] Lab Reports [id number]#1.00CD:127 [facility] Lab Reports [id number]#1.00CD:127 [facility] Lab Reports [id number]#1.00CD:127 [facility] Lab Reportson 12-21-2022 Lab Reports [id number]#1.00CD:127 [facility] Lab Reports [id number]#1.00CD:127 [facility] Lab Reports [id number]:127 [facility] Lab Reports [id number]:127 Normal [facility] Lab Reports [id number]:127 Normal [facility] Lab Reports [id number]:127 Normal [facility] Lab Reports [id number]#1.00CD:127 Normal [facility] Lab Reports [id number]#1.00CD:127 [facility] Lab Reports [id number]#1.00CD:127 Normal [facility] Lab Reports [id number]#1.00CD:127 Normal [facility] Lab Reports [id number]#1.00CD:127 Normal [facility] Basic Metabolic Panelon 11-21 Anion gap [Moles/Vol] Not performed Normal 6.0-15.0 [facility] Comment on above: Performed By: #### M G, TSH3, CBC, DIFF CBC, PT, PTT, CMP #### [facility] [address] [place] [id number] [place] Calcium [Mass/Vol] 8.7 mg/dL Normal 8.6-10.3 [facility] Comment on above: Performed By: #### M G, TSH3, CBC, DIFF CBC, PT, PTT, CMP #### [facility] [address] [place] [address] [place] Chloride [Moles/Vol] 102 mmol/L Normal 98-107 [facility] Comment on above: Performed By: #### M G, TSH3, CBC, DIFF CBC, PT, PTT, CMP #### [facility] [address] [place] [address] [place] CO2 [Moles/Vol] 27.9 mmol/L Normal 21.0-31.0 [facility] Comment on above: Performed By: #### M G, TSH3, CBC, DIFF CBC, PT, PTT, CMP #### [facility] [address] Creatinine [Mass/Vol] 0.93 mg/dL Normal 0.70-1.30 [facility] Comment on above: Performed By: #### M G, TSH3, CBC, DIFF CBC, PT, PTT, CMP #### [facility] [address] [place] [address] [place] Creatinine Clr Calc Pharmacy 55.82 [facility] Comment on above: Performed By: #### M G, TSH3, CBC, DIFF CBC, PT, PTT, CMP #### [facility] [address] [place] [address] [place] GFR/1.73 sq M.predicted MDRD (S/P/Bld) [Vol rate/Area] mL/min/{1.73_m2} [facility] Comment on above: Performed By: #### M G, TSH3, CBC, DIFF CBC, PT, PTT, CMP #### [facility] [address] Glucose [Mass/Vol] 173 mg/dL Significant change up 70-100 [facility] Comment on above: Result Comment: [facility] Glucose Reference Range is dependent on time and content of last meal. Glucose of more than 200 mg/dL in a nonstressed, ambulatory subject supports the diagnosis of Diabetes Mellitus. ADA recommended reference range Performed By: #### M G, TSH3, CBC, DIFF CBC, PT, PTT, CMP #### [facility] [address] Potassium Normal 3.5-5.1 [facility] Comment on above: Result Comment: Spec imen hemolyzed, redraw requested Performed By: #### M G, TSH3, CBC, DIFF CBC, PT, PTT, CMP #### [facility] [address] Sodium [Moles/Vol] 136 mmol/L Normal 136-145 [facility] Comment on above: Performed By: #### M G, TSH3, CBC, DIFF CBC, PT, PTT, CMP #### [facility] [address] [place] [address] Urea nitrogen [Mass/Vol] 47 mg/dL High 7-25 [facility] Comment on above: Performed By: #### M G, TSH3, CBC, DIFF CBC, PT, PTT, CMP #### [facility] [address] [place] [address] [place] Diff and CBCon 11-30-2022 Basophils/100 WBC (Bld) 0 % Normal 0-2 [facility] Comment on above: Performed By: #### M G, TSH3, CBC, DIFF CBC, PT, PTT, CMP #### [address] Eosinophils/100 WBC (Bld) 0 % Low 1-3 [facility] Comment on above: Performed By: #### M G, TSH3, CBC, DIFF CBC, PT, PTT, CMP #### [address] Erythrocyte distribution width (RBC) [Ratio] 13.4 % Normal 12.0-14.8 [facility] Comment on above: Performed By: #### M G, TSH3, CBC, DIFF CBC, PT, PTT, CMP #### [address] Hematocrit (Bld) [Volume fraction] 33.4 % Low 38.8-50.0 [facility] Comment on above: Performed By: #### M G, TSH3, CBC, DIFF CBC, PT, PTT, CMP #### [address] Hemoglobin (Bld) [Mass/Vol] 11.3 g/dL Low 13.0-17.0 [facility] Comment on above: Performed By: #### M G, TSH3, CBC, DIFF CBC, PT, PTT, CMP #### [place] [address] [place] Lymphocytes/100 WBC (Bld) 13 % Low 18-42 [facility] Comment on above: Performed By: #### M G, TSH3, CBC, DIFF CBC, PT, PTT, CMP #### [address] MCH (RBC) [Entitic mass] 31.2 pg Normal 27.5-35.2 [facility] Comment on above: Performed By: #### M G, TSH3, CBC, DIFF CBC, PT, PTT, CMP #### [address] MCV (RBC) [Entitic vol] 92.4 fL Normal 83.5-101 [facility] Comment on above: Performed By: #### M G, TSH3, CBC, DIFF CBC, PT, PTT, CMP #### [address] Mean Corpuscular HGB Conc 33.7 g/dL Normal 32.5-35.6 [facility] Comment on above: Performed By: #### M G, TSH3, CBC, DIFF CBC, PT, PTT, CMP #### [address] Microcytosis Slight Normal [facility] Comment on above: Performed By: #### M G, TSH3, CBC, DIFF CBC, PT, PTT, CMP #### [address] Monocytes/100 WBC (Bld) 5 % Normal 2-11 [facility] Comment on above: Performed By: #### M G, TSH3, CBC, DIFF CBC, PT, PTT, CMP #### [address] Ovalocytes Slight Normal [facility] Comment on above: Performed By: #### M G, TSH3, CBC, DIFF CBC, PT, PTT, CMP #### [address] Platelet Estimate Normal Normal Normal [facility] Comment on above: Result Comment: --- 11/30/22 0728 --- Plt Est previously reported as: Decreased Performed By: #### M G, TSH3, CBC, DIFF CBC, PT, PTT, CMP #### [address] Platelet mean volume (Bld) [Entitic vol] 8.7 fL Normal 6.6-10.1 [facility] Comment on above: Result Comment: PERF ORMED BY: [place] [address] PATHOLOGIST NEUROLOGY STROKE PHYSICIAN TRINA GARCIA M.D. Performed By: #### M G, TSH3, CBC, DIFF CBC, PT, PTT, CMP #### [address] Platelet Morphology Normal Normal Normal [facility] Comment on above: Result Comment: PERF ORMED BY: [place] [address] PATHOLOGIST NEUROLOGY STROKE PHYSICIAN TRINA GARCIA M.D. Performed By: #### M G, TSH3, CBC, DIFF CBC, PT, PTT, CMP #### [address] Platelets (Bld) [#/Vol] 216 10*3/uL Normal 150-450 [facility] Comment on above: Performed By: #### M G, TSH3, CBC, DIFF CBC, PT, PTT, CMP #### [address] RBC (Bld) [#/Vol] 3.61 10*6/uL Low 3.90-5.60 [facility] Comment on above: Performed By: #### M G, TSH3, CBC, DIFF CBC, PT, PTT, CMP #### [address] Schistocytes Slight Normal [facility] Comment on above: Performed By: #### M G, TSH3, CBC, DIFF CBC, PT, PTT, CMP #### [address] Segmented neutrophils/100 WBC (Bld) 82 % High 50-70 [facility] Comment on above: Performed By: #### M G, TSH3, CBC, DIFF CBC, PT, PTT, CMP #### [address] WBC (Bld) [#/Vol] 13.3 10*3/uL High 4.1-10.5 [facility] Comment on above: Performed By: #### M G, TSH3, CBC, DIFF CBC, PT, PTT, CMP #### [facility] [address] Magnesiumon 11-30-2022 Magnesium [Mass/Vol] 2.1 mg/dL Normal 1.9-2.7 [facility] Comment on above: Result Comment: PERF ORMED BY: [place] [address] PATHOLOGIST NEUROLOGY STROKE PHYSICIAN TRINA GARCIA M.D. Performed By: #### M G, TSH3, CBC, DIFF CBC, PT, PTT, CMP #### [address] Redraw Potassiumon Potassium [Moles/Vol] 4.5 mmol/L Normal 3.5-5.1 [facility] Comment on above: Order Comment: SPECI MEN HEMOLYZED, NOTIFIED HERMELINDA Result Comment: PERF ORMED BY: [place] [address] PATHOLOGIST NEUROLOGY STROKE PHYSICIAN TRINA GARCIA M.D. Performed By: #### M G, TSH3, CBC, DIFF CBC, PT, PTT, CMP #### [address] B-Type Natriuretic Peptideon 11-29-2022 Natriuretic peptide B (Bld) [Mass/Vol] 213.0 pg/mL High 5-100 [facility] Comment on above: Result Comment: PERF ORMED BY: [place] [address] PATHOLOGIST NEUROLOGY STROKE PHYSICIAN TRINA GARCIA M.D. Performed By: #### M G, TSH3, CBC, DIFF CBC, PT, PTT, CMP #### [facility] [address] Basic Metabolic Panelon 07-0 Anion gap [Moles/Vol] 9.3 mmol/L Normal 6.0-15.0 [facility] Comment on above: Performed By: #### M G, TSH3, CBC, DIFF CBC, PT, PTT, CMP #### [facility] [address] Calcium [Mass/Vol] 8.9 mg/dL Normal 8.6-10.3 [facility] Comment on above: Performed By: #### M G, TSH3, CBC, DIFF CBC, PT, PTT, CMP #### [facility] [address] Chloride [Moles/Vol] 103 mmol/L Normal 98-107 [facility] Comment on above: Performed By: #### M G, TSH3, CBC, DIFF CBC, PT, PTT, CMP #### [facility] [address] CO2 [Moles/Vol] 28.1 mmol/L Normal 21.0-31.0 [facility] Comment on above: Performed By: #### M G, TSH3, CBC, DIFF CBC, PT, PTT, CMP #### [facility] [address] Creatinine [Mass/Vol] 0.91 mg/dL Normal 0.70-1.30 [facility] Comment on above: Performed By: #### M G, TSH3, CBC, DIFF CBC, PT, PTT, CMP #### [facility] [address] Creatinine Clr Calc Pharmacy 57.05 [facility] Comment on above: Performed By: #### M G, TSH3, CBC, DIFF CBC, PT, PTT, CMP #### [facility] [address] [place] [address] [place] GFR/1.73 sq M.predicted MDRD (S/P/Bld) [Vol rate/Area] mL/min/{1.73_m2} [facility] Comment on above: Performed By: #### M G, TSH3, CBC, DIFF CBC, PT, PTT, CMP #### [address] Glucose [Mass/Vol] 293 mg/dL High 70-100 [facility] Comment on above: Result Comment: [place] Glucose Reference Range is dependent on time and content of last meal. Glucose of more than 200 mg/dL in a nonstressed, ambulatory subject supports the diagnosis of Diabetes Mellitus. ADA recommended reference range Performed By: #### M G, TSH3, CBC, DIFF CBC, PT, PTT, CMP #### [address] Potassium [Moles/Vol] 4.4 mmol/L Normal 3.5-5.1 [facility] Comment on above: Performed By: #### M G, TSH3, CBC, DIFF CBC, PT, PTT, CMP #### [address] Sodium [Moles/Vol] 136 mmol/L Normal 136-145 [facility] Comment on above: Performed By: #### M G, TSH3, CBC, DIFF CBC, PT, PTT, CMP #### [address] Urea nitrogen [Mass/Vol] 41 mg/dL High 7-25 [facility] Comment on above: Performed By: #### M G, TSH3, CBC, DIFF CBC, PT, PTT, CMP #### [address] Complete Blood Count Auto Di ffon 11-29-2022 Basophils (Bld) [#/Vol] 0.0 10*3/uL Normal 0.0-0.2 [facility] Comment on above: Result Comment: PERF ORMED BY: [place] [address] PATHOLOGIST NEUROLOGY STROKE PHYSICIAN TRINA GARCIA M.D. Performed By: #### M G, TSH3, CBC, DIFF CBC, PT, PTT, CMP #### [address] Basophils/100 WBC (Bld) 0.1 % Normal . [facility] Comment on above: Performed By: #### M G, TSH3, CBC, DIFF CBC, PT, PTT, CMP #### [address] Eosinophils (Bld) [#/Vol] 0.0 10*3/uL Normal 0.0-0.45 [facility] Comment on above: Performed By: #### M G, TSH3, CBC, DIFF CBC, PT, PTT, CMP #### [address] Eosinophils/100 WBC (Bld) 0.0 % Normal . [facility] Comment on above: Performed By: #### M G, TSH3, CBC, DIFF CBC, PT, PTT, CMP #### [address] Erythrocyte distribution width (RBC) [Ratio] 13.3 % Normal 12.0-14.8 [facility] Comment on above: Performed By: #### M G, TSH3, CBC, DIFF CBC, PT, PTT, CMP #### [address] Hematocrit (Bld) [Volume fraction] 34.5 % Low 38.8-50.0 [facility] Comment on above: Performed By: #### M G, TSH3, CBC, DIFF CBC, PT, PTT, CMP #### [address] Hemoglobin (Bld) [Mass/Vol] 11.6 g/dL Low 13.0-17.0 [facility] Comment on above: Performed By: #### M G, TSH3, CBC, DIFF CBC, PT, PTT, CMP #### [address] Lymphocytes (Bld) [#/Vol] 0.6 10*3/uL Low 1.00-4.8 [facility] Comment on above: Performed By: #### M G, TSH3, CBC, DIFF CBC, PT, PTT, CMP #### [address] Lymphocytes/100 WBC (Bld) 4.1 % Normal . [facility] Comment on above: Performed By: #### M G, TSH3, CBC, DIFF CBC, PT, PTT, CMP #### [address] MCH (RBC) [Entitic mass] 31.0 pg Normal 27.5-35.2 [facility] Comment on above: Performed By: #### M G, TSH3, CBC, DIFF CBC, PT, PTT, CMP #### [address] MCV (RBC) [Entitic vol] 92.6 fL Normal 83.5-101 [facility] Comment on above: Performed By: #### M G, TSH3, CBC, DIFF CBC, PT, PTT, CMP #### [address] Mean Corpuscular HGB Conc 33.5 g/dL Normal 32.5-35.6 [facility] Comment on above: Performed By: #### M G, TSH3, CBC, DIFF CBC, PT, PTT, CMP #### [address] Monocytes (Bld) [#/Vol] 0.7 10*3/uL Normal 0.0-0.8 [facility] Comment on above: Performed By: #### M G, TSH3, CBC, DIFF CBC, PT, PTT, CMP #### [address] Monocytes/100 WBC (Bld) 4.8 % Normal . [facility] Comment on above: Performed By: #### M G, TSH3, CBC, DIFF CBC, PT, PTT, CMP #### [address] Neutrophils (Bld) [#/Vol] 13.2 10*3/uL High 1.8-7.7 [facility] Comment on above: Performed By: #### M G, TSH3, CBC, DIFF CBC, PT, PTT, CMP #### [address] Neutrophils/100 WBC (Bld) 91.0 % Normal . [facility] Comment on above: Performed By: #### M G, TSH3, CBC, DIFF CBC, PT, PTT, CMP #### [address] NRBC% 0.0 /100{WBC} Normal 0-0.5 [facility] Comment on above: Performed By: #### M G, TSH3, CBC, DIFF CBC, PT, PTT, CMP #### [address] Platelet mean volume (Bld) [Entitic vol] 8.4 fL Normal 6.6-10.1 [facility] Comment on above: Performed By: #### M G, TSH3, CBC, DIFF CBC, PT, PTT, CMP #### [address] Platelets (Bld) [#/Vol] 219 10*3/uL Normal 150-450 [facility] Comment on above: Performed By: #### M G, TSH3, CBC, DIFF CBC, PT, PTT, CMP #### [address] RBC (Bld) [#/Vol] 3.72 10*6/uL Low 3.90-5.60 [facility] Comment on above: Performed By: #### M G, TSH3, CBC, DIFF CBC, PT, PTT, CMP #### [address] WBC (Bld) [#/Vol] 14.5 10*3/uL High 4.1-10.5 [facility] Comment on above: Performed By: #### M G, TSH3, CBC, DIFF CBC, PT, PTT, CMP #### [address] Magnesiumon 11-29-2022 Magnesium [Mass/Vol] 2.0 mg/dL Normal 1.9-2.7 [facility] Comment on above: Result Comment: PERF ORMED BY: [place] [id number] PATHOLOGIST NEUROLOGY STROKE PHYSICIAN TRINA GARCIA M.D. Performed By: #### M G, TSH3, CBC, DIFF CBC, PT, PTT, CMP #### [place] [id number] [facility] Glucose Poct Glucometerson 0 11-28-2022 Commemt1 Glu2: Cleaned Meter Normal [facility] Comment on above: Result Comment: PERF ORMED BY: [place] [address] PATHOLOGIST NEUROLOGY STROKE PHYSICIAN TRINA GARCIA M.D. Performed By: #### M G, TSH3, CBC, DIFF CBC, PT, PTT, CMP #### [place] [id number] [facility] Glucose [Mass/Vol] 392 mg/dL Normal [facility] Comment on above: Result Comment: [facility] Glucose Reference Range is dependent on time and content of last meal. Glucose of more than 200 mg/dL in a nonstressed, ambulatory subject supports the diagnosis of Diabetes Mellitus. Performed By: #### M G, TSH3, CBC, DIFF CBC, PT, PTT, CMP #### [address] [address] [facility] Glucose [Mass/Vol] 222 mg/dL Normal [facility] Comment on above: Result Comment: [facility] Glucose Reference Range is dependent on time and content of last meal. Glucose of more than 200 mg/dL in a nonstressed, ambulatory subject supports the diagnosis of Diabetes Mellitus. PERFORMED BY: [place] [id number] PATHOLOGIST NEUROLOGY STROKE PHYSICIAN TRINA GARCIA M.D. Performed By: #### M G, TSH3, CBC, DIFF CBC, PT, PTT, CMP #### [place] [id number] [facility] Glucose [Mass/Vol] 322 mg/dL Normal [facility] Comment on above: Result Comment: [facility] Glucose Reference Range is dependent on time and content of last meal. Glucose of more than 200 mg/dL in a nonstressed, ambulatory subject supports the diagnosis of Diabetes Mellitus. PERFORMED BY: [place] [address] PATHOLOGIST NEUROLOGY STROKE PHYSICIAN TRINA GARCIA M.D. Performed By: #### M G, TSH3, CBC, DIFF CBC, PT, PTT, CMP #### [address] Basic Metabolic Panelon 070 Anion gap [Moles/Vol] 8.6 mmol/L Normal 6.0-15.0 [facility] Comment on above: Performed By: #### M G, TSH3, CBC, DIFF CBC, PT, PTT, CMP #### [address] Calcium [Mass/Vol] 8.3 mg/dL Low 8.6-10.3 [facility] Comment on above: Performed By: #### M G, TSH3, CBC, DIFF CBC, PT, PTT, CMP #### [address] Chloride [Moles/Vol] 105 mmol/L Normal 98-107 [facility] Comment on above: Performed By: #### M G, TSH3, CBC, DIFF CBC, PT, PTT, CMP #### [address] CO2 [Moles/Vol] 26.9 mmol/L Normal 21.0-31.0 [facility] Comment on above: Performed By: #### M G, TSH3, CBC, DIFF CBC, PT, PTT, CMP #### [address] Creatinine [Mass/Vol] 1.19 mg/dL Normal 0.70-1.30 [facility] Comment on above: Performed By: #### M G, TSH3, CBC, DIFF CBC, PT, PTT, CMP #### [facility] [address] [place] [address] [place] Creatinine Clr Calc Pharmacy 42.72 [facility] Comment on above: Result Comment: PERF ORMED BY: [place] [address] PATHOLOGIST NEUROLOGY STROKE PHYSICIAN TRINA GARCIA M.D. Performed By: #### M G, TSH3, CBC, DIFF CBC, PT, PTT, CMP #### [facility] [address] GFR/1.73 sq M.predicted MDRD (S/P/Bld) [Vol rate/Area] mL/min/{1.73_m2} [facility] Comment on above: Performed By: #### M G, TSH3, CBC, DIFF CBC, PT, PTT, CMP #### [facility] [address] Glucose [Mass/Vol] 102 mg/dL High 70-100 [facility] Comment on above: Result Comment: [facility] Glucose Reference Range is dependent on time and content of last meal. Glucose of more than 200 mg/dL in a nonstressed, ambulatory subject supports the diagnosis of Diabetes Mellitus. ADA recommended reference range Performed By: #### M G, TSH3, CBC, DIFF CBC, PT, PTT, CMP #### [facility] [address] Potassium [Moles/Vol] 4.5 mmol/L Normal 3.5-5.1 [facility] Comment on above: Performed By: #### M G, TSH3, CBC, DIFF CBC, PT, PTT, CMP #### [facility] [address] [place] [address] [place] Sodium [Moles/Vol] 136 mmol/L Significant change down 136-145 [facility] Comment on above: Performed By: #### M G, TSH3, CBC, DIFF CBC, PT, PTT, CMP #### [facility] [address] [place] [address] [place] Urea nitrogen [Mass/Vol] 50 mg/dL High 7-25 [facility] Comment on above: Performed By: #### M G, TSH3, CBC, DIFF CBC, PT, PTT, CMP #### [address] Complete Blood Count Auto Di ffon 11-27-2022 Basophils (Bld) [#/Vol] 0.0 10*3/uL Normal 0.0-0.2 [facility] Comment on above: Result Comment: PERF ORMED BY: [place] [address] PATHOLOGIST NEUROLOGY STROKE PHYSICIAN TRINA GARCIA M.D. Performed By: #### M G, TSH3, CBC, DIFF CBC, PT, PTT, CMP #### [address] Basophils/100 WBC (Bld) 0.1 % Normal . [facility] Comment on above: Performed By: #### M G, TSH3, CBC, DIFF CBC, PT, PTT, CMP #### [address] Eosinophils (Bld) [#/Vol] 0.0 10*3/uL Normal 0.0-0.45 [facility] Comment on above: Performed By: #### M G, TSH3, CBC, DIFF CBC, PT, PTT, CMP #### [address] Eosinophils/100 WBC (Bld) 0.0 % Normal . [facility] Comment on above: Performed By: #### M G, TSH3, CBC, DIFF CBC, PT, PTT, CMP #### [address] Erythrocyte distribution width (RBC) [Ratio] 13.7 % Normal 12.0-14.8 [facility] Comment on above: Performed By: #### M G, TSH3, CBC, DIFF CBC, PT, PTT, CMP #### [address] Hematocrit (Bld) [Volume fraction] 30.6 % Low 38.8-50.0 [facility] Comment on above: Performed By: #### M G, TSH3, CBC, DIFF CBC, PT, PTT, CMP #### [address] Hemoglobin (Bld) [Mass/Vol] 10.4 g/dL Low 13.0-17.0 [facility] Comment on above: Performed By: #### M G, TSH3, CBC, DIFF CBC, PT, PTT, CMP #### [address] Lymphocytes (Bld) [#/Vol] 0.7 10*3/uL Low 1.00-4.8 [facility] Comment on above: Performed By: #### M G, TSH3, CBC, DIFF CBC, PT, PTT, CMP #### [address] Lymphocytes/100 WBC (Bld) 4.1 % Normal . [facility] Comment on above: Performed By: #### M G, TSH3, CBC, DIFF CBC, PT, PTT, CMP #### [address] MCH (RBC) [Entitic mass] 31.6 pg Normal 27.5-35.2 [facility] Comment on above: Performed By: #### M G, TSH3, CBC, DIFF CBC, PT, PTT, CMP #### [address] MCV (RBC) [Entitic vol] 93.4 fL Normal 83.5-101 [facility] Comment on above: Performed By: #### M G, TSH3, CBC, DIFF CBC, PT, PTT, CMP #### [address] Mean Corpuscular HGB Conc 33.9 g/dL Normal 32.5-35.6 [facility] Comment on above: Performed By: #### M G, TSH3, CBC, DIFF CBC, PT, PTT, CMP #### [address] Monocytes (Bld) [#/Vol] 0.4 10*3/uL Normal 0.0-0.8 [facility] Comment on above: Performed By: #### M G, TSH3, CBC, DIFF CBC, PT, PTT, CMP #### [address] Monocytes/100 WBC (Bld) 2.0 % Normal . [facility] Comment on above: Performed By: #### M G, TSH3, CBC, DIFF CBC, PT, PTT, CMP #### [address] Neutrophils (Bld) [#/Vol] 16.8 10*3/uL High 1.8-7.7 [facility] Comment on above: Performed By: #### M G, TSH3, CBC, DIFF CBC, PT, PTT, CMP #### [address] Neutrophils/100 WBC (Bld) 93.8 % Normal . [facility] Comment on above: Performed By: #### M G, TSH3, CBC, DIFF CBC, PT, PTT, CMP #### [address] NRBC% 0.2 /100{WBC} Normal 0-0.5 [facility] Comment on above: Performed By: #### M G, TSH3, CBC, DIFF CBC, PT, PTT, CMP #### [address] Platelet mean volume (Bld) [Entitic vol] 8.2 fL Normal 6.6-10.1 [facility] Comment on above: Performed By: #### M G, TSH3, CBC, DIFF CBC, PT, PTT, CMP #### [place] [address] [place] Platelets (Bld) [#/Vol] 239 10*3/uL Normal 150-450 [facility] Comment on above: Performed By: #### M G, TSH3, CBC, DIFF CBC, PT, PTT, CMP #### [place] [address] [place] RBC (Bld) [#/Vol] 3.28 10*6/uL Low 3.90-5.60 [facility] Comment on above: Performed By: #### M G, TSH3, CBC, DIFF CBC, PT, PTT, CMP #### [facility] [address] [place] [address] [place] WBC (Bld) [#/Vol] 17.9 10*3/uL High 4.1-10.5 [facility] Comment on above: Performed By: #### M G, TSH3, CBC, DIFF CBC, PT, PTT, CMP #### [facility] [address] [place] [address] [facility] ECG 12 lead ECGon 11-27-2022 ECG 12 lead ECG [facility] [address] [place] [address] Electrocardiograph Report Signed Patient: Franki Hernandez MR#: [id number] : 1940 Acct:[id number] Age/Sex: 82 / M ADM Date: 11/25/22 Loc: Room: [address] [place] [address] Type: ADM IN Attending Dr: Nelida Aquino MD Ordering Provider: Jean-Pierre Otero DO Date of Service: 11/27/2212/13/499 ECG/ECG 12 lead ECG: Rhythm change Copies to: Test Reason : Blood Pressure : / mmHG Vent. Rate : 052 BPM Atrial Rate : 052 BPM P-R Int : 136 ms QRS Dur : 086 ms QT Int : 514 ms P-R-T Axes : 039 055 060 degrees QTc Int : 478 ms Sinus bradycardia with Sinus arrhythmia Otherwise normal ECG When compared with ECG of 26-NOV-2022 12:50, Sinus rhythm has replaced Ectopic atrial rhythm Nonspecific T wave abnormality no longer evident in Anterior leads Confirmed by DAVID CERDA DO ([id number]) on 11/27/2022 12:56:23 PM Referred By: Electronically Signed By:DAVID CERDA DO Transcribed By: MUS Signed By David Cerda DO 11/27 1256 [facility] Glucose Poct Glucometerson 0 11-27-2022 Glucose [Mass/Vol] 199 mg/dL Normal [facility] Comment on above: Result Comment: [place] om Glucose Reference Range is dependent on time and content of last meal. Glucose of more than 200 mg/dL in a nonstressed, ambulatory subject supports the diagnosis of Diabetes Mellitus. PERFORMED BY: [address] [place] [address] PATHOLOGIST NEUROLOGY STROKE PHYSICIAN TRINA GARCIA M.D. Performed By: #### M G, TSH3, CBC, DIFF CBC, PT, PTT, CMP #### [place] [address] [place] Commemt1 [facility] Comment on above: Result Comment: Glu2 : WILL NOTIFY DR/RN Performed By: #### M G, TSH3, CBC, DIFF CBC, PT, PTT, CMP #### [place] [address] [place] Commemt2 [facility] Comment on above: Result Comment: PERF ORMED BY: [facility] [address] [place] [address] PATHOLOGIST NEUROLOGY STROKE PHYSICIAN TRINA GARCIA M.D. Performed By: #### M G, TSH3, CBC, DIFF CBC, PT, PTT, CMP #### [place] [id number] [place] Glucose [Mass/Vol] 410 mg/dL Off scale high [facility] Comment on above: Result Comment: [place] om Glucose Reference Range is dependent on time and content of last meal. Glucose of more than 200 mg/dL in a nonstressed, ambulatory subject supports the diagnosis of Diabetes Mellitus. Performed By: #### M G, TSH3, CBC, DIFF CBC, PT, PTT, CMP #### [facility] [address] [place] [address] [place] Glucose [Mass/Vol] 358 mg/dL Normal [facility] Comment on above: Result Comment: [place] om Glucose Reference Range is dependent on time and content of last meal. Glucose of more than 200 mg/dL in a nonstressed, ambulatory subject supports the diagnosis of Diabetes Mellitus. PERFORMED BY: [place] [address] PATHOLOGIST NEUROLOGY STROKE PHYSICIAN TRINA GARCIA M.D. Performed By: #### M G, TSH3, CBC, DIFF CBC, PT, PTT, CMP #### [address] A1C with Estimated Average G karol 11-26-2022 Glucose [Mass/Vol] 183 mg/dL Normal [facility] Comment on above: Result Comment: PERF ORMED BY: [place] [address] PATHOLOGIST NEUROLOGY STROKE PHYSICIAN TRINA GARCIA M.D. Performed By: #### H S TROP, A1C WTH eA, SCAN CBC #### [address] HbA1c (Bld) [Mass fraction] 8.0 % High 4.3-5.6 [facility] Comment on above: Result Comment: Incr eased risk for diabetes: 5.7 - 6.4 diabetes: >6.4 glycemic control for adults with diabetes: <7.0 Performed By: #### H S TROP, A1C WTH eA, SCAN CBC #### [address] Basic Metabolic Panelon 07 Anion gap [Moles/Vol] 12.0 mmol/L Normal 6.0-15.0 [facility] Comment on above: Performed By: #### M G, TSH3, CBC, DIFF CBC, PT, PTT, CMP #### [place] [address] [place] Calcium [Mass/Vol] 8.3 mg/dL Low 8.6-10.3 [facility] Comment on above: Performed By: #### M G, TSH3, CBC, DIFF CBC, PT, PTT, CMP #### [address] Chloride [Moles/Vol] 108 mmol/L High 98-107 [facility] Comment on above: Performed By: #### M G, TSH3, CBC, DIFF CBC, PT, PTT, CMP #### [facility] [address] CO2 [Moles/Vol] 27.1 mmol/L Normal 21.0-31.0 [facility] Comment on above: Performed By: #### M G, TSH3, CBC, DIFF CBC, PT, PTT, CMP #### [facility] [address] Creatinine [Mass/Vol] 0.99 mg/dL Normal 0.70-1.30 [facility] Comment on above: Performed By: #### M G, TSH3, CBC, DIFF CBC, PT, PTT, CMP #### [address] Creatinine Clr Calc Pharmacy 47.90 [facility] Comment on above: Performed By: #### M G, TSH3, CBC, DIFF CBC, PT, PTT, CMP #### [address] GFR/1.73 sq M.predicted MDRD (S/P/Bld) [Vol rate/Area] mL/min/{1.73_m2} [facility] Comment on above: Performed By: #### M G, TSH3, CBC, DIFF CBC, PT, PTT, CMP #### [address] Glucose [Mass/Vol] 164 mg/dL Significant change up 70-100 [facility] Comment on above: Result Comment: [place] Glucose Reference Range is dependent on time and content of last meal. Glucose of more than 200 mg/dL in a nonstressed, ambulatory subject supports the diagnosis of Diabetes Mellitus. ADA recommended reference range Performed By: #### M G, TSH3, CBC, DIFF CBC, PT, PTT, CMP #### [address] Potassium [Moles/Vol] 5.1 mmol/L Normal 3.5-5.1 [facility] Comment on above: Performed By: #### M G, TSH3, CBC, DIFF CBC, PT, PTT, CMP #### [facility] [address] [place] [address] [place] Sodium [Moles/Vol] 142 mmol/L Normal 136-145 [facility] Comment on above: Performed By: #### M G, TSH3, CBC, DIFF CBC, PT, PTT, CMP #### [facility] [address] [place] [address] [place] Urea nitrogen [Mass/Vol] 37 mg/dL High - [facility] Comment on above: Performed By: #### M G, TSH3, CBC, DIFF CBC, PT, PTT, CMP #### [facility] [address] [place] [address] [facility] ECG 12 lead ECGon 11-26-2022 ECG 12 lead ECG [place] [address] Electrocardiograph Report Signed Patient: Franki Hernandez MR#: [id number] : 1940 Acct:[id number] Age/Sex: 82 / M ADM Date: 11/25/22 Loc: Room: [address] [place] [address] Type: ADM IN Attending Dr: Nelida Aquino MD Ordering Provider: Nelida Aquino MD Date of Service: 11/26/2211/14/1247 ECG/ECG 12 lead ECG: rhythm change Copies to: Test Reason : Blood Pressure : / mmHG Vent. Rate : 062 BPM Atrial Rate : 062 BPM P-R Int : 136 ms QRS Dur : 070 ms QT Int : 452 ms P-R-T Axes : 009 058 040 degrees QTc Int : 458 ms Unusual P axis, possible ectopic atrial rhythm Borderline ECG When compared with ECG of 25-NOV-2022 17:22, Sinus rhythm has replaced Atrial fibrillation Vent. rate has decreased BY 69 BPM Confirmed by DAVID CERDA DO ([id number]) on 11/26/2022 1:19:08 PM Referred By: Electronically Signed By:DAVID CERDA DO Transcribed By: MUS Signed By David Cerda DO 11/26 1319 [facility] ECG 12 lead ECG [facility] Main [place] [id number] Electrocardiograph Report Signed Patient: Franki Hernandez MR#: [id number] : 1940 Acct:[id number] Age/Sex: 82 / M ADM Date: 11/25/22 Loc: 3T Room: [address] [place] [address] Type: ADM IN Attending Dr: Nelida Aquino MD Ordering Provider: Nelida Aquino MD Date of Service: 11/26/2211/13/499 ECG/ECG 12 lead ECG: rythm change Copies to: Test Reason : Blood Pressure : / mmHG Vent. Rate : 058 BPM Atrial Rate : 105 BPM P-R Int : 134 ms QRS Dur : 082 ms QT Int : 478 ms P-R-T Axes : 044 066 076 degrees QTc Int : 469 ms Sinus tachycardia with blocked premature atrial complexes Otherwise normal ECG No previous ECGs available Confirmed by DAVID CERDA DO ([id number]) on 11/27/2022 12:55:40 PM Referred By: Electronically Signed By:DAVID CERDA DO Transcribed By: MUS Signed By David Cerda DO 11/27 1255 [facility] ECH echo transthoracicon [facility] echo transthoracic [facility] Main [address] [address] Echocardiogram Signed Patient: Franki Hernandez MR#: [id number] : 1940 Acct:[id number] Age/Sex: 82 / M ADM Date: 11/25/22 Loc: Room: [address] [place] [address] Type: ADM IN Attending Dr: Nelida Aquino MD Ordering Provider: Hermelinda Benitez APRN Date of Service: 11/26/2211/13/499 ECH/ECH echo transthoracic: a-fib rvr, elevated troponin Copies to: Saige Bassett MD, [facility] Hermelinda Benitez, [employer] Weight: 125 lb Performed By: JEANNA Solo BSA: 1.7 m2 BP: 140/63 mmHg HR: 62 Reason For Study: a-fib rvr, elevated troponin History: CHF, COPD, DM, HTN, throat cancer, smoker, Afib, HLD Interpretation Summary Mild concentric left ventricular hypertrophy. Left ventricular systolic function is normal. The LV ejection fraction is 55 %. A variety of Doppler measurements indicate impaired left ventricular relaxation, which is associated with grade I/IV or mild diastolic dysfunction. Moderate calcification of the posterior leaflet of the mitral valve Compared to prior echo report on 07/07/2021, changes are noted. Left ventricular ejection fraction has increased from 25% up to 55% Procedure/Quality: A two-dimensional transthoracic echocardiogram with color flow and Doppler was performed. The study was technically good in quality. Compared to prior echo report on 07/07/2021, changes are noted. Left ventricular ejection fraction has increased from 25% up to 55%. Left Ventricle: Mild concentric left ventricular hypertrophy. Left ventricular systolic function is normal. The LV ejection fraction is 55 %. A variety of Doppler measurements indicate impaired left ventricular relaxation, which is associated with grade I/IV or mild diastolic dysfunction. Left Atrium: The left atrium appears normal in size. The atrial septum appears normal. Right Atrium: The right atrium appears normal in size. Right Ventricle: The right ventricular size, thickness and function are normal. Aortic Valve: The aortic valve is mildly sclerotic. Mitral Valve: Moderate calcification of the posterior leaflet of the mitral valve. There is trace mitral regurgitation. Tricuspid Valve: The tricuspid valve is normal. There is trace tricuspid regurgitation. Pulmonic Valve: The pulmonic valve is not well visualized. Arteries: The aortic root is normal size. Pericardium/Pleura: No pericardial effusion seen. There is no pleural effusion. IVC/Hepatic Viens: The IVC is normal in size with an inspiratory collapse of greater then 50%, suggesting normal right atrial pressure. Miscellaneous: No thrombus, vegetation or mass is seen. Measurements with Normals IVSd: 1.2 cm (0.7-1.1 cm)LVIDd: 4.8 cm (3.7-5.4 cm) LVPWd: 1.3 cm (0.7-1.1 cm)LVIDs: 3.4 cm (2.3-3.6 cm) LA dimension: 3.9 cm(2.3-4.0 cm)Ao root diam: 2.8 cm(2.0-3.6 cm) Doppler with Normals RVSP(TR): 21.8 mmHg (18-35mmHg) MV E max joann: 80.2 cm/sec (0.8-1.3m/s) MV A max joann: 101.6 cm/sec(0.0-0.0m/s) MV E/A: 0.79 (<1.5) MMode/2D Measurements Calculations TAPSE: 3.3 cm FS: 29.1 % Ao root area: 6.3 cm2 LVLd ap4: 6.9 cm RV S Joann: EDV(Teich): EDV(MOD-sp4): 18.0 cm/sec 108.0 ml 62.7 ml ESV(Teich): LVLs ap4: 5.6 cm 47.7 ml ESV(MOD-sp4): EF(Teich): 55.8 % 31.3 ml EF(MOD-sp4): 50.1 % __ SV(MOD-sp4): LAV(MOD-sp4): LA A2 area: 9.7 cm2 31.4 ml 23.1 ml LAV(MOD-sp2): LA A4 area: 10.2 cm2 19.0 ml LA length (vol): 3.6 cm LA vol: 23.5 ml LA vol index: 13.6 ml/m2 Doppler Measurements Calculations MV dec time: 0.39 sec E/E' lat: MV dec slope: TV max P.0 17.0 mmHg E/E' med: 206.6 cm/sec2 14.5 __ TR max joann: 205.0 cm/sec TR max P.8 mmHg RAP systole: 5.0 mmHg Transcribed By: SCV Performed At: 11/26/22 1004 Signed By: Saige Bassett MD, [facility] 11/26/22 1704 [facility] Glucose Poct Glucometerson 0 11-26-2022 Commemt1 [facility] Comment on above: Result Comment: Glu2 : WILL NOTIFY DR/RN PERFORMED BY: [place] [address] PATHOLOGIST NEUROLOGY STROKE PHYSICIAN TRINA GARCIA M.D. Performed By: #### M G, TSH3, CBC, DIFF CBC, PT, PTT, CMP #### [address] Glucose [Mass/Vol] 477 mg/dL Off scale high [facility] Comment on above: Result Comment: [place] om Glucose Reference Range is dependent on time and content of last meal. Glucose of more than 200 mg/dL in a nonstressed, ambulatory subject supports the diagnosis of Diabetes Mellitus. Performed By: #### M G, TSH3, CBC, DIFF CBC, PT, PTT, CMP #### [address] Glucose [Mass/Vol] 355 mg/dL Normal [facility] Comment on above: Result Comment: [place] om Glucose Reference Range is dependent on time and content of last meal. Glucose of more than 200 mg/dL in a nonstressed, ambulatory subject supports the diagnosis of Diabetes Mellitus. PERFORMED BY: [place] [address] PATHOLOGIST NEUROLOGY STROKE PHYSICIAN TRINA GARCIA M.D. Performed By: #### M G, TSH3, CBC, DIFF CBC, PT, PTT, CMP #### [place] [address] [place] Glucose [Mass/Vol] 178 mg/dL Normal [facility] Comment on above: Result Comment: [place] om Glucose Reference Range is dependent on time and content of last meal. Glucose of more than 200 mg/dL in a nonstressed, ambulatory subject supports the diagnosis of Diabetes Mellitus. PERFORMED BY: [place] [address] PATHOLOGIST NEUROLOGY STROKE PHYSICIAN TRINA GARCIA M.D. Performed By: #### M G, TSH3, CBC, DIFF CBC, PT, PTT, CMP #### [place] [address] [place] Glucose [Mass/Vol] 205 mg/dL Normal [facility] Comment on above: Result Comment: [facility] Glucose Reference Range is dependent on time and content of last meal. Glucose of more than 200 mg/dL in a nonstressed, ambulatory subject supports the diagnosis of Diabetes Mellitus. PERFORMED BY: [address] [place] [address] PATHOLOGIST NEUROLOGY STROKE PHYSICIAN TRINA GARCIA M.D. Performed By: #### M G, TSH3, CBC, DIFF CBC, PT, PTT, CMP #### [address] Magnesiumon 11-26-2022 Magnesium [Mass/Vol] 2.3 mg/dL Normal 1.9-2.7 [facility] Comment on above: Performed By: #### M G, TSH3, CBC, DIFF CBC, PT, PTT, CMP #### [address] Prealbuminon 11-26-2022 Prealbumin [Mass/Vol] 22.6 mg/dL Normal 17.0-34.0 [facility] Comment on above: Result Comment: PERF ORMED BY: [place] [address] PATHOLOGIST NEUROLOGY STROKE PHYSICIAN TRINA GARCIA M.D. Performed By: #### M G, TSH3, CBC, DIFF CBC, PT, PTT, CMP #### [address] Scan and CBCon 11-26-2022 Anisocytosis Ql (Bld) Slight Normal [facility] Comment on above: Performed By: #### H S TROP, A1C WTH eA, SCAN CBC #### [place] [address] [place] Basophils (Bld) [#/Vol] 0.0 10*3/uL Normal 0.0-0.2 [facility] Comment on above: Performed By: #### H S TROP, A1C WTH eA, SCAN CBC #### [place] [address] [place] Basophils/100 WBC (Bld) 0.1 % Normal . [facility] Comment on above: Performed By: #### H S TROP, A1C WTH eA, SCAN CBC #### [facility] [address] [place] [address] [place] Eosinophils (Bld) [#/Vol] 0.0 10*3/uL Normal 0.0-0.45 [facility] Comment on above: Performed By: #### H S TROP, A1C WTH eA, SCAN CBC #### [facility] [address] [place] [address] [place] Eosinophils/100 WBC (Bld) 0.0 % Normal . [facility] Comment on above: Performed By: #### H S TROP, A1C WTH eA, SCAN CBC #### [address] Erythrocyte distribution width (RBC) [Ratio] 13.5 % Normal 12.0-14.8 [facility] Comment on above: Performed By: #### H S TROP, A1C WTH eA, SCAN CBC #### [place] [address] [place] Hematocrit (Bld) [Volume fraction] 34.3 % Low 38.8-50.0 [facility] Comment on above: Performed By: #### H S TROP, A1C WTH eA, SCAN CBC #### [place] [address] [place] Hemoglobin (Bld) [Mass/Vol] 11.3 g/dL Low 13.0-17.0 [facility] Comment on above: Performed By: #### H S TROP, A1C WTH eA, SCAN CBC #### [facility] [address] [place] [address] [place] Lymphocytes (Bld) [#/Vol] 0.5 10*3/uL Low 1.00-4.8 [facility] Comment on above: Performed By: #### H S TROP, A1C WTH eA, SCAN CBC #### [facility] [address] [place] [address] [place] Lymphocytes/100 WBC (Bld) 3.8 % Normal . [facility] Comment on above: Performed By: #### H S TROP, A1C WTH eA, SCAN CBC #### [facility] [address] [place] [address] MCH (RBC) [Entitic mass] 31.0 pg Normal 27.5-35.2 [facility] Comment on above: Performed By: #### H S TROP, A1C WTH eA, SCAN CBC #### [facility] [address] [place] [address] MCV (RBC) [Entitic vol] 94.0 fL Normal 83.5-101 [facility] Comment on above: Performed By: #### H S TROP, A1C WTH eA, SCAN CBC #### [address] Mean Corpuscular HGB Conc 33.0 g/dL Normal 32.5-35.6 [facility] Comment on above: Performed By: #### H S TROP, A1C WTH eA, SCAN CBC #### [address] Microcytosis Slight [facility] Comment on above: Performed By: #### H S TROP, A1C WTH eA, SCAN CBC #### [address] Monocytes (Bld) [#/Vol] 0.1 10*3/uL Normal 0.0-0.8 [facility] Comment on above: Performed By: #### H S TROP, A1C WTH eA, SCAN CBC #### [address] Monocytes/100 WBC (Bld) 0.7 % Normal . [facility] Comment on above: Performed By: #### H S TROP, A1C WTH eA, SCAN CBC #### [facility] [address] [place] [address] Neutrophils (Bld) [#/Vol] 12.1 10*3/uL High 1.8-7.7 [facility] Comment on above: Performed By: #### H S TROP, A1C WTH eA, SCAN CBC #### [address] Neutrophils/100 WBC (Bld) 95.4 % Normal . [facility] Comment on above: Performed By: #### H S TROP, A1C WTH eA, SCAN CBC #### [address] NRBC% 0.0 /100{WBC} Normal 0-0.5 [facility] Comment on above: Performed By: #### H S TROP, A1C WTH eA, SCAN CBC #### [address] Ovalocytes Slight [facility] Comment on above: Performed By: #### H S TROP, A1C WTH eA, SCAN CBC #### [address] Platelet Estimate Normal Normal Normal [facility] Comment on above: Performed By: #### H S TROP, A1C WTH eA, SCAN CBC #### [address] Platelet mean volume (Bld) [Entitic vol] 8.2 fL Normal 6.6-10.1 [facility] Comment on above: Performed By: #### H S TROP, A1C WTH eA, SCAN CBC #### [address] Platelet Morphology Normal Normal Normal [facility] Comment on above: Result Comment: PERF ORMED BY: [place] [address] PATHOLOGIST NEUROLOGY STROKE PHYSICIAN TRINA GARCIA M.D. Performed By: #### H S TROP, A1C WTH eA, SCAN CBC #### [place] [address] [place] Platelets (Bld) [#/Vol] 229 10*3/uL Normal 150-450 [facility] Comment on above: Performed By: #### H S TROP, A1C WTH eA, SCAN CBC #### [place] [address] [place] RBC (Bld) [#/Vol] 3.65 10*6/uL Low 3.90-5.60 [facility] Comment on above: Performed By: #### H S TROP, A1C WTH eA, SCAN CBC #### [address] WBC (Bld) [#/Vol] 12.6 10*3/uL High 4.1-10.5 [facility] Comment on above: Performed By: #### H S TROP, A1C WTH eA, SCAN CBC #### [address] Troponin I High Sensitivityo n 11-26-2022 Troponin I High Sensitivity 19.7 pg/mL Normal 0.0-20.0 [facility] Comment on above: Result Comment: PERF ORMED BY: [place] [address] PATHOLOGIST NEUROLOGY STROKE PHYSICIAN TRINA GARCIA M.D. Performed By: #### H S TROP, A1C WTH eA, SCAN CBC #### [address] Troponin I High Sensitivity 24.1 pg/mL High 0.0-20.0 [facility] Comment on above: Result Comment: PERF ORMED BY: [place] [address] PATHOLOGIST NEUROLOGY STROKE PHYSICIAN TRINA GARCIA M.D. Performed By: #### M G, TSH3, CBC, DIFF CBC, PT, PTT, CMP #### [address] Urine Cultureon 11-26-2022 Bacteria identified Cx Nom (U) No Growth 2 Days PERFORMED BY: [place] [address] PATHOLOGIST NEUROLOGY STROKE PHYSICIAN TRINA GARCIA M.D. Normal [facility] Comment on above: Performed By: #### M G, TSH3, CBC, DIFF CBC, PT, PTT, CMP #### [address] Activated partial thrombopla stin time (aPTT) in platelet poor plasma by coagulation aOrdered By: Shukri Francisco on 11-25-2022 aPTT Coag (PPP) [Time] 23.3 s 25.1-36.5 [facility] Alanine aminotransferase [En zymatic activity/volume] in Serum or PlasmaOrdered By: Shukri Francisco on 11-25-2022 ALT [Catalytic activity/Vol] 9 U/L 7-52 [facility] Albumin [Mass/volume] in Ser um or Plasma by Bromocresol green (BCG) dye binding methoOrdered By: Shukri Francisco on 11-25-2022 Albumin BCG dye [Mass/Vol] 3.2 g/dL 3.5-5.7 [facility] Alkaline phosphatase [Enzyma tic activity/volume] in Serum or PlasmaOrdered By: Shukri Francisco on 11-25-2022 ALP [Catalytic activity/Vol] 114 U/L 34-104 [facility] Aspartate aminotransferase [ Enzymatic activity/volume] in Serum or PlasmaOrdered By: Shukri Francisco on 11-25-2022 AST [Catalytic activity/Vol] 11 U/L 13-39 [facility] Automated erythrocytes count in urine sediment (number/area)Ordered By: Shukri Francisco on 11-25-2022 RBC Auto (Urine sed) [#/Area] 0-1 [HPF] 0-4 [facility] Automated leukocytes count i n urine sediment (number/area)Ordered By: Shukri Francisco on 11-25-2022 WBC Auto (Urine sed) [#/Area] 0-1 [HPF] 0-4 [facility] B-Type Natriuretic Peptideon 11-25-2022 Natriuretic peptide B (Bld) [Mass/Vol] 194.0 pg/mL High 5-100 [facility] Comment on above: Result Comment: PERF ORMED BY: [place] [address] PATHOLOGIST NEUROLOGY STROKE PHYSICIAN TRINA GARCIA M.D. Performed By: #### M G, TSH3, CBC, DIFF CBC, PT, PTT, CMP #### [address] Band form neutrophils/100 WB C Manual cnt (Bld)Ordered By: Shukri Francisco on 11-25-2022 Band form neutrophils/100 WBC (Bld) 2 % 0-5 [facility] Basophils Auto (Bld) [#/Vol] Ordered By: Shukri Francisco on 11-25-2022 Basophils (Bld) [#/Vol] N/A [facility] Basophils/100 WBC Auto (Bld) Ordered By: Shukri Francisco on 11-25-2022 Basophils/100 WBC (Bld) N/A [facility] Basophils/100 WBC Manual cnt (Bld)Ordered By: Shukri Francisco on 11-25-2022 Basophils/100 WBC (Bld) 0 % 0-2 [facility] Bilirubin Test strip Ql (U)O rdered By: Shukri Francisco on 11-25-2022 Bilirubin Ql (U) Negative Negative [facility] Bilirubin.total [Mass/volume ] in Serum or PlasmaOrdered By: Shukri Francisco on 11-25-2022 Bilirubin [Mass/Vol] 0.5 mg/dL 0.3-1.0 [facility] Blood Cultureon 11-25-2022 Bacteria identified Cx Nom (Bld) NO GROWTH 5 DAYS PERFORMED BY: [place] [address] PATHOLOGIST NEUROLOGY STROKE PHYSICIAN TRINA GARCIA M.D. [facility] Comment on above: Performed By: #### M G, TSH3, CBC, DIFF CBC, PT, PTT, CMP #### [facility] [address] [place] [address] Bacteria identified Cx Nom (Bld) NO GROWTH 5 DAYS PERFORMED BY: [place] [address] PATHOLOGIST NEUROLOGY STROKE PHYSICIAN TRINA GARCIA M.D. [facility] Comment on above: Performed By: #### M G, TSH3, CBC, DIFF CBC, PT, PTT, CMP #### [facility] [address] [place] [address] [place] Calcium [Mass/volume] in Ser um or PlasmaOrdered By: Shukri Francisco on 11-25-2022 Calcium [Mass/Vol] 9.1 mg/dL 8.6-10.3 [facility] Carbon dioxide, total [Moles /volume] in Serum or PlasmaOrdered By: Shukri Francisco on 11-25-2022 CO2 [Moles/Vol] 27.0 mmol/L 21.0-31.0 [facility] Chloride [Moles/volume] in S lio or PlasmaOrdered By: Shukri Francisco on 11-25-2022 Chloride [Moles/Vol] 108 mmol/L 98-107 [facility] Color Auto (U)Ordered By: Allie Francisco on 11-25-2022 Color (U) Yellow Yellow [facility] Complete Blood Count Auto Di ffon 11-25-2022 Erythrocyte distribution width (RBC) [Ratio] 13.6 % Normal 12.0-14.8 [facility] Comment on above: Performed By: #### M G, TSH3, CBC, DIFF CBC, PT, PTT, CMP #### [facility] [address] Hematocrit (Bld) [Volume fraction] 39.9 % Normal 38.8-50.0 [facility] Comment on above: Performed By: #### M G, TSH3, CBC, DIFF CBC, PT, PTT, CMP #### [facility] [address] Hemoglobin (Bld) [Mass/Vol] 13.1 g/dL Normal 13.0-17.0 [facility] Comment on above: Performed By: #### M G, TSH3, CBC, DIFF CBC, PT, PTT, CMP #### [address] MCH (RBC) [Entitic mass] 31.0 pg Normal 27.5-35.2 [facility] Comment on above: Performed By: #### M G, TSH3, CBC, DIFF CBC, PT, PTT, CMP #### [address] MCV (RBC) [Entitic vol] 94.1 fL Normal 83.5-101 [facility] Comment on above: Performed By: #### M G, TSH3, CBC, DIFF CBC, PT, PTT, CMP #### [address] Mean Corpuscular HGB Conc 32.9 g/dL Normal 32.5-35.6 [facility] Comment on above: Performed By: #### M G, TSH3, CBC, DIFF CBC, PT, PTT, CMP #### [address] [address] Platelet mean volume (Bld) [Entitic vol] 8.1 fL Normal 6.6-10.1 [facility] Comment on above: Result Comment: PERF ORMED BY: [place] [address] PATHOLOGIST NEUROLOGY STROKE PHYSICIAN TRINA GARCIA M.D. Performed By: #### M G, TSH3, CBC, DIFF CBC, PT, PTT, CMP #### [address] Platelets (Bld) [#/Vol] 278 10*3/uL Normal 150-450 [facility] Comment on above: Performed By: #### M G, TSH3, CBC, DIFF CBC, PT, PTT, CMP #### [address] RBC (Bld) [#/Vol] 4.24 10*6/uL Normal 3.90-5.60 [facility] Comment on above: Performed By: #### M G, TSH3, CBC, DIFF CBC, PT, PTT, CMP #### [address] WBC (Bld) [#/Vol] 21.8 10*3/uL High 4.1-10.5 [facility] Comment on above: Performed By: #### M G, TSH3, CBC, DIFF CBC, PT, PTT, CMP #### [facility] [address] Comprehensive Metabolic Pane uam 11-25-2022 Albumin [Mass/Vol] 3.2 g/dL Low 3.5-5.7 [facility] Comment on above: Performed By: #### M G, TSH3, CBC, DIFF CBC, PT, PTT, CMP #### [facility] [address] [place] [address] Albumin/Globulin [Mass ratio] 1.1 {ratio} Normal [facility] Comment on above: Performed By: #### M G, TSH3, CBC, DIFF CBC, PT, PTT, CMP #### [address] ALP [Catalytic activity/Vol] 114 U/L High 34-104 [facility] Comment on above: Performed By: #### M G, TSH3, CBC, DIFF CBC, PT, PTT, CMP #### [address] ALT [Catalytic activity/Vol] 9 U/L Normal 7-52 [facility] Comment on above: Performed By: #### M G, TSH3, CBC, DIFF CBC, PT, PTT, CMP #### [facility] [address] [place] [address] Anion gap [Moles/Vol] 11.0 mmol/L Normal 6.0-15.0 [facility] Comment on above: Performed By: #### M G, TSH3, CBC, DIFF CBC, PT, PTT, CMP #### [facility] [address] [place] [address] AST [Catalytic activity/Vol] 11 U/L Low 13-39 [facility] Comment on above: Performed By: #### M G, TSH3, CBC, DIFF CBC, PT, PTT, CMP #### [facility] [address] [place] [address] Bilirubin [Mass/Vol] 0.5 mg/dL Normal 0.3-1.0 [facility] Comment on above: Performed By: #### M G, TSH3, CBC, DIFF CBC, PT, PTT, CMP #### [address] Calcium [Mass/Vol] 9.1 mg/dL Normal 8.6-10.3 [facility] Comment on above: Performed By: #### M G, TSH3, CBC, DIFF CBC, PT, PTT, CMP #### [address] [place] [address] [place] Chloride [Moles/Vol] 108 mmol/L High 98-107 [facility] Comment on above: Performed By: #### M G, TSH3, CBC, DIFF CBC, PT, PTT, CMP #### [facility] [address] CO2 [Moles/Vol] 27.0 mmol/L Normal 21.0-31.0 [facility] Comment on above: Performed By: #### M G, TSH3, CBC, DIFF CBC, PT, PTT, CMP #### [facility] [address] Creatinine [Mass/Vol] 1.14 mg/dL Normal 0.70-1.30 [facility] Comment on above: Performed By: #### M G, TSH3, CBC, DIFF CBC, PT, PTT, CMP #### [address] Creatinine Clr Calc Pharmacy 41.45 [facility] Comment on above: Performed By: #### M G, TSH3, CBC, DIFF CBC, PT, PTT, CMP #### [facility] [address] GFR/1.73 sq M.predicted MDRD (S/P/Bld) [Vol rate/Area] mL/min/{1.73_m2} [facility] Comment on above: Performed By: #### M G, TSH3, CBC, DIFF CBC, PT, PTT, CMP #### [address] Globulin (S) [Mass/Vol] 3.0 g/dL [facility] Comment on above: Performed By: #### M G, TSH3, CBC, DIFF CBC, PT, PTT, CMP #### [address] Glucose [Mass/Vol] 54 mg/dL Low 70-100 [facility] Comment on above: Result Comment: [facility] Glucose Reference Range is dependent on time and content of last meal. Glucose of more than 200 mg/dL in a nonstressed, ambulatory subject supports the diagnosis of Diabetes Mellitus. ADA recommended reference range Performed By: #### M G, TSH3, CBC, DIFF CBC, PT, PTT, CMP #### [facility] [address] Potassium [Moles/Vol] 4.0 mmol/L Normal 3.5-5.1 [facility] Comment on above: Performed By: #### M G, TSH3, CBC, DIFF CBC, PT, PTT, CMP #### [facility] [address] Protein [Mass/Vol] 6.2 g/dL Low 6.4-8.9 [facility] Comment on above: Performed By: #### M G, TSH3, CBC, DIFF CBC, PT, PTT, CMP #### [facility] [address] Sodium [Moles/Vol] 142 mmol/L Normal 136-145 [facility] Comment on above: Performed By: #### M G, TSH3, CBC, DIFF CBC, PT, PTT, CMP #### [facility] [address] Urea nitrogen [Mass/Vol] 35 mg/dL High 7-25 [facility] Comment on above: Performed By: #### M G, TSH3, CBC, DIFF CBC, PT, PTT, CMP #### [facility] [address] [place] [address] Creatinine [Mass/volume] in Serum or PlasmaOrdered By: Shukri Francisco on 11-25-2022 Creatinine [Mass/Vol] 1.14 mg/dL 0.70-1.30 [facility] Diff and CBCon 11-25-2022 Band form neutrophils/100 WBC (Bld) 2 % Normal 0-5 [facility] Comment on above: Performed By: #### M G, TSH3, CBC, DIFF CBC, PT, PTT, CMP #### [facility] [address] [place] [address] [place] Basophils/100 WBC (Bld) 0 % Normal 0-2 [facility] Comment on above: Performed By: #### M G, TSH3, CBC, DIFF CBC, PT, PTT, CMP #### [facility] [address] [place] [address] [place] Eosinophils/100 WBC (Bld) 0 % Low 1-3 [facility] Comment on above: Performed By: #### M G, TSH3, CBC, DIFF CBC, PT, PTT, CMP #### [facility] [address] [place] [address] [place] Lymphocytes/100 WBC (Bld) 6 % Low 18-42 [facility] Comment on above: Performed By: #### M G, TSH3, CBC, DIFF CBC, PT, PTT, CMP #### [place] [address] [place] Metamyelocytes 1 % High 0-0 [facility] Comment on above: Performed By: #### M G, TSH3, CBC, DIFF CBC, PT, PTT, CMP #### [place] [address] [place] Monocytes/100 WBC (Bld) 19.98 % Normal 0.00-20.00 [facility] Comment on above: Result Comment: For adults in ED, MDW > 20.0 may be associated with a higher risk of sepsis during the first 12 hrs of hospital admission The predictive value of MDW for identifying sepsis in patients with hematological abnormalities has not been established Performed By: #### M G, TSH3, CBC, DIFF CBC, PT, PTT, CMP #### [facility] [address] [place] [address] [place] Monocytes/100 WBC (Bld) 2 % Normal 2-11 [facility] Comment on above: Performed By: #### M G, TSH3, CBC, DIFF CBC, PT, PTT, CMP #### [place] [address] [place] Myelocytes 4 % High 0-0 [facility] Comment on above: Performed By: #### M G, TSH3, CBC, DIFF CBC, PT, PTT, CMP #### [facility] [address] [place] [address] [place] Platelet Estimate Normal Normal Normal [facility] Comment on above: Performed By: #### M G, TSH3, CBC, DIFF CBC, PT, PTT, CMP #### [facility] [address] [place] [address] Platelet Morphology Normal Normal Normal [facility] Comment on above: Result Comment: PERF ORMED BY: [place] [address] PATHOLOGIST NEUROLOGY STROKE PHYSICIAN TRINA GARCIA M.D. Performed By: #### M G, TSH3, CBC, DIFF CBC, PT, PTT, CMP #### [facility] [address] [place] [address] RBC morphology finding Nom (Bld) Normal Normal Normal [facility] Comment on above: Performed By: #### M G, TSH3, CBC, DIFF CBC, PT, PTT, CMP #### [address] Segmented neutrophils/100 WBC (Bld) 85 % High 50-70 [facility] Comment on above: Performed By: #### M G, TSH3, CBC, DIFF CBC, PT, PTT, CMP #### [address] Dipstick and Microscopicon 0 11-25-2022 Appearance (U) Clear Normal Clear [facility] Comment on above: Order Comment: Name Collection Type:: Berry Catheter Performed By: #### M G, TSH3, CBC, DIFF CBC, PT, PTT, CMP #### [facility] [address] [place] [address] Bacteria,Urine None Seen Normal None Seen [facility] Comment on above: Order Comment: Name Collection Type:: Berry Catheter Performed By: #### M G, TSH3, CBC, DIFF CBC, PT, PTT, CMP #### [place] [address] [place] Bilirubin,Urine Negative Normal Negative [facility] Comment on above: Order Comment: Name Collection Type:: Berry Catheter Performed By: #### M G, TSH3, CBC, DIFF CBC, PT, PTT, CMP #### [address] [place] [address] [place] Color (U) Yellow Normal Yellow [facility] Comment on above: Order Comment: Name Collection Type:: Berry Catheter Performed By: #### M G, TSH3, CBC, DIFF CBC, PT, PTT, CMP #### [facility] [address] Glucose Ql (U) Normal Normal Normal [facility] Comment on above: Order Comment: Name Collection Type:: Berry Catheter Performed By: #### M G, TSH3, CBC, DIFF CBC, PT, PTT, CMP #### [facility] [address] Hyaline Casts,Urine 0-8 Normal 0-8 [facility] Comment on above: Order Comment: Name Collection Type:: Berry Catheter Result Comment: PERF ORMED BY: [place] [address] PATHOLOGIST NEUROLOGY STROKE PHYSICIAN TRINA GARCIA M.D. Performed By: #### M G, TSH3, CBC, DIFF CBC, PT, PTT, CMP #### [address] Ketones Ql (U) Trace High Negative [facility] Comment on above: Order Comment: Name Collection Type:: Berry Catheter Performed By: #### M G, TSH3, CBC, DIFF CBC, PT, PTT, CMP #### [address] Leukocyte esterase Test strip Ql (U) Negative Normal Negative [facility] Comment on above: Order Comment: Name Collection Type:: Berry Catheter Performed By: #### M G, TSH3, CBC, DIFF CBC, PT, PTT, CMP #### [place] [address] [place] Nitrite,Urine Negative Normal Negative [facility] Comment on above: Order Comment: Name Collection Type:: Berry Catheter Performed By: #### M G, TSH3, CBC, DIFF CBC, PT, PTT, CMP #### [address] Occult Blood,Urine Negative Normal Negative [facility] Comment on above: Order Comment: Name Collection Type:: Berry Catheter Result Comment: PERF ORMED BY: [place] [address] PATHOLOGIST NEUROLOGY STROKE PHYSICIAN TRINA GARCIA M.D. Performed By: #### M G, TSH3, CBC, DIFF CBC, PT, PTT, CMP #### [address] pH (U) 6.0 [pH] Normal 5.0-9.0 [facility] Comment on above: Order Comment: Name Collection Type:: Berry Catheter Performed By: #### M G, TSH3, CBC, DIFF CBC, PT, PTT, CMP #### [address] Protein (U) [Mass/Vol] 300 mg/dL High Negative [facility] Comment on above: Order Comment: Name Collection Type:: Berry Catheter Performed By: #### M G, TSH3, CBC, DIFF CBC, PT, PTT, CMP #### [address] RBC LM.HPF (Urine sed) [#/Area] 0 /[HPF] Normal 0-4 [facility] Comment on above: Order Comment: Name Collection Type:: Berry Catheter Performed By: #### M G, TSH3, CBC, DIFF CBC, PT, PTT, CMP #### [address] Specificy [place],Urine 1.024 Normal 1.001-1.030 [facility] Comment on above: Order Comment: Name Collection Type:: Berry Catheter Performed By: #### M G, TSH3, CBC, DIFF CBC, PT, PTT, CMP #### [place] [address] [place] Squamous Epithelial Cell,Urine 0-1 Normal 0-2 [facility] Comment on above: Order Comment: Name Collection Type:: Berry Catheter Performed By: #### M G, TSH3, CBC, DIFF CBC, PT, PTT, CMP #### [facility] [address] Urobilinogen,Urine Normal Normal Normal [facility] Comment on above: Order Comment: Name Collection Type:: Berry Catheter Performed By: #### M G, TSH3, CBC, DIFF CBC, PT, PTT, CMP #### [facility] [address] [place] [id number] [place] WBC LM.HPF (Urine sed) [#/Area] 0 /[HPF] Normal 0-4 [facility] Comment on above: Order Comment: Name Collection Type:: Berry Catheter Performed By: #### M G, TSH3, CBC, DIFF CBC, PT, PTT, CMP #### [facility] [address] ECG 12 lead ECGon 11-25-2022 ECG 12 lead ECG [facility] [place] [address] [place] [address] Electrocardiograph Report Signed Patient: Franki Hernandez MR#: [id number] : 1940 Acct:[id number] Age/Sex: 82 / M ADM Date: 11/25/22 Loc: ER Room: Type: [facility] ER Attending Dr: Ordering Provider: Shukri Francisco MD Date of Service: 11/25/2210/13/1710 ECG/ECG 12 lead ECG: Weakness Copies to: Test Reason : Blood Pressure : 123/085 mmHG Vent. Rate : 131 BPM Atrial Rate : 122 BPM P-R Int : 000 ms QRS Dur : 076 ms QT Int : 322 ms P-R-T Axes : 000 064 060 degrees QTc Int : 475 ms Atrial fibrillation with rapid ventricular response Abnormal ECG When compared with ECG of 13-JUL-2021 13:06, Atrial fibrillation has replaced Sinus rhythm Vent. rate has increased BY 71 BPM T wave inversion no longer evident in Inferior leads T wave inversion no longer evident in Anterolateral leads Confirmed by SHUKRI FRANCISCO MD ([id number]) on 11/25/2022 8:28:13 PM Referred By: Electronically Signed By:SHUKRI FRANCISCO MD Transcribed By: MUS Signed By Shukri Francisco MD 10/13 Normal [facility] Eosinophils Auto (Bld) [#/Vo l]Ordered By: Shukri Francisco on 11-25-2022 Eosinophils (Bld) [#/Vol] N/A [facility] Eosinophils/100 WBC Auto (Bl d)Ordered By: Shukri Francisco on 11-25-2022 Eosinophils/100 WBC (Bld) N/A [facility] Eosinophils/100 WBC Manual c nt (Bld)Ordered By: Shukri Francisco on 11-25-2022 Eosinophils/100 WBC (Bld) 0 % 1-3 [facility] Erythrocyte distribution wid th Auto (RBC) [Ratio]Ordered By: Shukri Francisco on 11-25-2022 Erythrocyte distribution width (RBC) [Ratio] 13.6 % 12.0-14.8 [facility] Free T4 (Free Thyroxine)on 0 11-25-2022 Free T4 [Mass/Vol] 1.31 ng/dL High 0.61-1.12 [facility] Comment on above: Result Comment: PERF ORMED BY: [place] [address] PATHOLOGIST NEUROLOGY STROKE PHYSICIAN TRINA GARCIA M.D. Performed By: #### M G, TSH3, CBC, DIFF CBC, PT, PTT, CMP #### [place] [address] [place] Globulin Calc (S) [Mass/Vol] Ordered By: Shukri Francisco on 11-25-2022 Globulin (S) [Mass/Vol] 3.0 g/dL [facility] Glucose Glucometer (BldC) [M ass/Vol]Ordered By: Jean-Pierre Otero on 11-25-2022 Glucose [Mass/Vol] 196 mg/dL [facility] Comment on above: Random Glucose Refer ence Range is dependent on time and content of last meal. Glucose of more than 200 mg/dL in a nonstressed, ambulatory subject supports the diagnosis of Diabetes Mellitus. Glucose Poct Glucometerson 0 11-25-2022 Glucose [Mass/Vol] 196 mg/dL Normal [facility] Comment on above: Result Comment: [place] [facility] Glucose Reference Range is dependent on time and content of last meal. Glucose of more than 200 mg/dL in a nonstressed, ambulatory subject supports the diagnosis of Diabetes Mellitus. PERFORMED BY: [facility] [address] [place] [address] PATHOLOGIST NEUROLOGY STROKE PHYSICIAN TRINA GARCIA M.D. Performed By: #### M G, TSH3, CBC, DIFF CBC, PT, PTT, CMP #### [facility] [address] Commemt1 Normal [facility] Comment on above: Result Comment: Glu2 : WILL NOTIFY DR/RN Performed By: #### M G, TSH3, CBC, DIFF CBC, PT, PTT, CMP #### [facility] [address] Commemt2 FOLLOW HYPOGLYCEMIC Normal [facility] Comment on above: Result Comment: PERF ORMED BY: [facility] [address] [place] [address] PATHOLOGIST NEUROLOGY STROKE PHYSICIAN TRINA GARCIA M.D. Performed By: #### M G, TSH3, CBC, DIFF CBC, PT, PTT, CMP #### [address] Glucose [Mass/Vol] 47 mg/dL Off scale low [facility] Comment on above: Result Comment: [place] [facility] Glucose Reference Range is dependent on time and content of last meal. Glucose of more than 200 mg/dL in a nonstressed, ambulatory subject supports the diagnosis of Diabetes Mellitus. Performed By: #### M G, TSH3, CBC, DIFF CBC, PT, PTT, CMP #### [facility] [address] [place] [address] Glucose [Mass/volume] in Ser um or PlasmaOrdered By: Shukri Francisco on 11-25-2022 Glucose [Mass/Vol] 54 mg/dL 70-100 [facility] Comment on above: ADA recommended refe rence rangeRandom Glucose Reference Range is dependent on time and content of last meal. Glucose of more than 200 mg/dL in a nonstressed, ambulatory subject supports the diagnosis of Diabetes Mellitus. Hematocrit Auto (Bld) [Volum e fraction]Ordered By: Shukri Francisco on 11-25-2022 Hematocrit (Bld) [Volume fraction] 39.9 % 38.8-50.0 [facility] Hemoglobin [Mass/volume] in BloodOrdered By: Shukri Francisco on 11-25-2022 Hemoglobin (Bld) [Mass/Vol] 13.1 g/dL 13.0-17.0 [facility] Ketones Auto test strip (U) [Mass/Vol]Ordered By: Shukri Francisco on 11-25-2022 Ketones (U) [Mass/Vol] Trace Negative [facility] - CoagulationOrde red By: Shukri Francisco on 11-25-2022 PT Coag (PPP) [Time] 10.6 s 9.0-12.9 [facility] - UrinalysisOrder ed By: Shukri Francisco on 11-25-2022 Hyaline casts LM Ql (Urine sed) 0-8 [LPF] 0-8 [facility] Leukocytes [#/volume] correc oz for nucleated erythrocytes in Blood by Automated counOrdered By: Shukri Francisco on 11-25-2022 WBC corrected for nucl RBC Auto (Bld) [#/Vol] 21.8 10*3/uL 4.1-10.5 [facility] Lymphocytes Auto (Bld) [#/Vo l]Ordered By: Shukri Francisco on 11-25-2022 Lymphocytes (Bld) [#/Vol] N/A [facility] Lymphocytes/100 WBC Auto (Bl d)Ordered By: Shukri Francisco on 11-25-2022 Lymphocytes/100 WBC (Bld) N/A [facility] Lymphocytes/100 WBC Manual c nt (Bld)Ordered By: Shukri Francisco on 11-25-2022 Lymphocytes/100 WBC (Bld) 6 % 18-42 [facility] MCH Auto (RBC) [Entitic mass ]Ordered By: Shukri Francisco on 11-25-2022 MCH (RBC) [Entitic mass] 31.0 pg 27.5-35.2 [facility] MCHC Auto (RBC) [Mass/Vol]Or dered By: Shukri Francisco on 11-25-2022 MCHC (RBC) [Mass/Vol] 32.9 g/dL 32.5-35.6 [facility] MCV Auto (RBC) [Entitic vol] Ordered By: Shukri Francisco on 07-05-2023 MCV (RBC) [Entitic vol] 94.1 fL 83.5-101 [facility] Magnesiumon 11-25-2022 Magnesium [Mass/Vol] 1.7 mg/dL Low 1.9-2.7 [facility] Comment on above: Performed By: #### M G, TSH3, CBC, DIFF CBC, PT, PTT, CMP #### [facility] [address] Magnesium [Mass/volume] in S lio or PlasmaOrdered By: Shukri Francisco on 11-25-2022 Magnesium [Mass/Vol] 1.7 mg/dL 1.9-2.7 [facility] Metamyelocytes/100 WBC Manua l cnt (Bld)Ordered By: Shukri Francisco on 11-25-2022 Metamyelocytes/100 WBC (Bld) 1 % 0-0 [facility] Monocyte distribution width [Entitic volume] in Blood by AutomatedOrdered By: Shukri Francisco on 11-25-2022 Monocyte distribution width Auto (Bld) [Entitic vol] 19.98 % 0.00-20.00 [facility] Comment on above: For adults in ED, MD W > 20.0 may be associated with a higher risk of sepsis during the first 12 hrs of hospital admissionThe predictive value of MDW for identifying sepsis in patients with hematological abnormalities has not been established Monocytes Auto (Bld) [#/Vol] Ordered By: Shukri Francisco on 11-25-2022 Monocytes (Bld) [#/Vol] N/A [facility] Monocytes/100 WBC Auto (Bld) Ordered By: Shukri Francisco on 11-25-2022 Monocytes/100 WBC (Bld) N/A [facility] Monocytes/100 WBC Manual cnt (Bld)Ordered By: Shukri Francisco on 11-25-2022 Monocytes/100 WBC (Bld) 2 % 2-11 [facility] Myelocytes/100 WBC Manual cn t (Bld)Ordered By: Shukri Francisco on 11-25-2022 Myelocytes/100 WBC (Bld) 4 % 0-0 [facility] Natriuretic peptide B [Mass/ Vol]Ordered By: Shukri Francisco on 11-25-2022 Natriuretic peptide B (Bld) [Mass/Vol] 194.0 pg/mL 5-100 [facility] Neutrophils Auto (Bld) [#/Vo l]Ordered By: Shukri Francisco on 11-25-2022 Neutrophils (Bld) [#/Vol] N/A [facility] Neutrophils/100 WBC Auto (Bl d)Ordered By: Shukri Francisco on 11-25-2022 Neutrophils/100 WBC (Bld) N/A [facility] Nitrite Test strip Ql (U)Ord ered By: Shukri Francisco on 11-25-2022 Nitrite Ql (U) Negative Negative [facility] No Panel InformationOrdered By: Jean-Pierre Otero on 11-25-2022 Bedside Glucose #2 Comment Follow hypoglycemic [facility] Bedside Glucose Comment See comment [facility] Comment on above: Glu2: WILL NOTIFY DR /RN No Panel InformationOrdered By: Shukri Francisco on 11-25-2022 Estimated GFR (CKD-EPI) > 60.0 mL/Min [facility] Creatinine Clearance (Chem 41.45 [facility] Nucleated erythrocytes [Pres ence] in Blood by Automated countOrdered By: Shukri Francisco on 11-25-2022 Nucleated RBC Auto Ql (Bld) N/A [facility] Partial Thromboplastin Timeo n 11-25-2022 aPTT Coag (Bld) [Time] 23.3 s Low 25.1-36.5 [facility] Comment on above: Result Comment: PERF ORMED BY: [place] [address] PATHOLOGIST NEUROLOGY STROKE PHYSICIAN TRINA GARCIA M.D. Performed By: #### M G, TSH3, CBC, DIFF CBC, PT, PTT, CMP #### [facility] [address] [place] [address] Platelet adequacy [Presence] in Blood by Light microscopyOrdered By: Shukri Francisco on 11-25-2022 Platelets LM Ql (Bld) Normal Normal [facility] Platelet mean volume Auto (B ld) [Entitic vol]Ordered By: Shukri Francisco on 11-25-2022 Platelet mean volume (Bld) [Entitic vol] 8.1 fL 6.6-10.1 [facility] Platelet morphology finding [Identifier] in BloodOrdered By: Shukri Francisco on 11-25-2022 Platelet morphology finding Nom (Bld) Normal Normal [facility] Platelet poor plasma interna tional normalized ratio (INR) by coagulation assay (relatOrdered By: Shukri Francisoc on 11-25-2022 INR Coag (PPP) [Relative time] 0.9 {INR} [facility] Comment on above: INR Therapeutic Rang e A) Pre- and Peroperative OAT started two weeks before surgery. NOT HIP SURGERY: 1.5 - 2.5 HIP SURGERY: 2 - 3B) Primary and secondary prevention of venous THROMBOSIS: 2 - 3C) Active venous thrombosis, pulmonary embolismand prevention of recurrent venous thrombosis: 2 - 3D) Prevention of arterial thromboembolismincluding patients with mechanical heart valves: 3 - 4.5 Platelets Auto (Bld) [#/Vol] Ordered By: Shukri Francisco on 11-25-2022 Platelets (Bld) [#/Vol] 278 10*3/uL 150-450 [facility] Potassium [Moles/volume] in Serum or PlasmaOrdered By: Shukri Francisco on 11-25-2022 Potassium [Moles/Vol] 4.0 mmol/L 3.5-5.1 [facility] Protein Auto test strip (U) [Mass/Vol]Ordered By: Shukri Francisco on 11-25-2022 Protein (U) [Mass/Vol] 300 mg/dL Negative [facility] Protein [Mass/volume] in Ser um or PlasmaOrdered By: Shukri Francisco on 11-25-2022 Protein [Mass/Vol] 6.2 g/dL 6.4-8.9 [facility] Prothrombin Time INRon 11-25 INR Coag (PPP) [Relative time] 0.9 {INR} Normal [facility] Comment on above: Result Comment: INR Therapeutic Range A) Pre- and Peroperative OAT started two weeks before surgery. NOT HIP SURGERY: 1.5 - 2.5 HIP SURGERY: 2 - 3 B) Primary and secondary prevention of venous THROMBOSIS: 2 - 3 C) Active venous thrombosis, pulmonary embolism and prevention of recurrent venous thrombosis: 2 - 3 D) Prevention of arterial thromboembolism including patients with mechanical heart valves: 3 - 4.5 Performed By: #### M G, TSH3, CBC, DIFF CBC, PT, PTT, CMP #### [facility] [address] PT Coag (PPP) [Time] 10.6 s Normal 9.0-12.9 [facility] Comment on above: Performed By: #### M G, TSH3, CBC, DIFF CBC, PT, PTT, CMP #### [facility] [address] RBC Auto (Bld) [#/Vol]Ordere d By: Shukri Francisco on 11-25-2022 RBC (Bld) [#/Vol] 4.24 10*6/uL 3.90-5.60 [facility] RBC morphologyOrdered By: Allie Francisco on 11-25-2022 RBC morphology finding Nom (Bld) Normal Normal [facility] Segmented neutrophils/100 WB C Manual cnt (Bld)Ordered By: Shukri Francisco on 11-25-2022 Segmented neutrophils/100 WBC (Bld) 85 % 50-70 [facility] Serum or plasma albumin/glob ulin mass ratioOrdered By: Shukri Francisco on 11-25-2022 Albumin/Globulin [Mass ratio] 1.1 {ratio} [facility] Serum or plasma anion gap de terminationOrdered By: Shukri Francisco on 11-25-2022 Anion gap [Moles/Vol] 11.0 mmol/L 6.0-15.0 [facility] Sodium [Moles/volume] in Ser um or PlasmaOrdered By: Shukri Francisco on 11-25-2022 Sodium [Moles/Vol] 142 mmol/L 136-145 [facility] Specific gravity Auto test s trip (U) [Rel density]Ordered By: Shukri Francisco on 11-25-2022 Specific gravity (U) [Rel density] 1.024 1.001-1.030 [facility] Squamous epithelial cells de tection in urine sediment by light microscopyOrdered By: Shukri Francsico on 11-25-2022 Epithelial cells.squamous LM Ql (Urine sed) 0-1 [HPF] 0-2 [facility] Thyroid Stimulating Hormoneo n 11-25-2022 TSH Qn 0.17 m[IU]/L Low 0.45-5.33 [facility] Comment on above: Result Comment: PERF ORMED BY: [place] [address] PATHOLOGIST NEUROLOGY STROKE PHYSICIAN TRINA GARCIA M.D. Performed By: #### M G, TSH3, CBC, DIFF CBC, PT, PTT, CMP #### [place] [id number] [facility] Thyrotropin [Units/volume] i n Serum or PlasmaOrdered By: Shukri Francisco on 11-25-2022 TSH Qn 0.17 m[IU]/L 0.45-5.33 [facility] Thyroxine (T4) free [Mass/vo lume] in Serum or PlasmaOrdered By: Shukri Francisco on 11-25-2022 Free T4 [Mass/Vol] 1.31 ng/dL 0.61-1.12 [facility] Troponin I High Sensitivityo n 11-25-2022 Troponin I High Sensitivity 28.3 pg/mL High 0.0-20.0 [facility] Comment on above: Result Comment: PERF ORMED BY: [place] [address] PATHOLOGIST NEUROLOGY STROKE PHYSICIAN TRINA GARCIA M.D. Performed By: #### M G, TSH3, CBC, DIFF CBC, PT, PTT, CMP #### [facility] [address] [place] [address] Troponin I.cardiac [Mass/vol ume] in Serum or Plasma by Detection limit <= 0.01 ng/Ordered By: Shukri Francisco on 11-25-2022 Troponin I.cardiac DL <= 0.01 ng/mL [Mass/Vol] 28.3 pg/mL 0.0-20.0 [facility] Urea nitrogen [Mass/volume] in Serum or PlasmaOrdered By: Shukri Francisco on 11-25-2022 Urea nitrogen [Mass/Vol] 35 mg/dL 7-25 [facility] Urine bacteria detection by automated methodOrdered By: Shukri Francisco on 11-25-2022 Bacteria Auto Ql (U) None seen None Seen [facility] Urine clarity by refractomet ry automatedOrdered By: Shukri Francisco on 11-25-2022 Clarity Refractometry automated (U) Clear Clear [facility] Urine glucose measurement by automated test strip (mass/volume)Ordered By: Shukri Francisco on 11-25-2022 Glucose Auto test strip (U) [Mass/Vol] Normal mg/dL Normal [facility] Urine hemoglobin detection b y automated test stripOrdered By: Shukri Francisco on 11-25-2022 Hemoglobin Auto test strip Ql (U) Negative Negative [facility] Urine leukocyte esterase det ection by automated test stripOrdered By: Shukri Francisco on 11-25-2022 Leukocyte esterase Auto test strip Ql (U) Negative Negative [facility] Urobilinogen Auto test strip (U) [Mass/Vol]Ordered By: Shukri Francisco on 11-25-2022 Urobilinogen (U) [Mass/Vol] Normal mg/dL Normal [facility] WBC Auto (Bld) [#/Vol]Ordere d By: Shukri Francisco on 11-25-2022 WBC (Bld) [#/Vol] 21.8 10*3/uL 4.1-10.5 [facility] XR chest 1V portableon 11-25 XR chest 1V portable [facility] [place] [address] XRay Report Signed Patient: Franki Hernandez MR#: [id number] : 1940 Acct:[id number] Age/Sex: 82 / M ADM Date: 11/25/22 Loc: ER Room: Type: PRE ER Attending Dr: Copies to: Shukri Francisco MD Ordering Provider: Shukri Francisco MD Date of Service: 11/25/22 XR/XR chest 1V portable: Weakness Plain film chest single view HISTORY: Cough. Weakness. COMPARISON: 07/17/2021 FINDINGS: SUPPORT DEVICES: None POSTSURGICAL CHANGES: None HEART: Within normal limits PULMONARY HENNA: Within normal limits MEDIASTINUM: Unremarkable LUNGS AND PLEURA: Similar interstitial prominence. Mild basilar reticular densities. No pleural effusion or pneumothorax. BONY STRUCTURES: Intact ADDITIONAL FINDINGS None XR/XR chest 1V portable IMPRESSION: Developing mild basilar reticular densities. May consider mild failure. Impression dictated by: David Chahal M.D.11/25/2022 6:13 PM Dictation Location: [place] [address] Transcribed By: PWS 11/25/221812 Dictated By: David Chahal DO 11/25/221811 Signed By: 11/25/221812 Normal [facility] pH Auto test strip (U)Ordere d By: Shukri Francisco on 11-25-2022 pH (U) 6.0 [pH] 5.0-9.0 [facility] XR LSPINE 2_3 VIEWSon 2022 XR LSPINE 2_3 VIEWS Normal [facility] CBC AUTO DIFFon 09-12-2022 BASO # 0.1 103/ul Normal 0.0-0.1 [facility] Comment on above: Performed By: #### C BC ####[facility] Vzputluhmh3898 [place] [address]Dr. Villa Yanes Basophils/100 WBC (Bld) 0.3 % Normal 0.2-2.0 [facility] Comment on above: Performed By: #### C BC ####[facility] Bijiqgtzet[address] [place], [place] [address]Dr. Villa Yanes EO # 0.1 103/ul Normal 0.0-0.7 [facility] Comment on above: Performed By: #### C BC ####[facility] Emocqnofyg4760 [place] [address]Dr. Villa Yanes Eosinophils/100 WBC (Bld) 0.5 % Critically low 0.9-7.0 [facility] Comment on above: Performed By: #### C BC ####[facility] Lwqxjyoysv8175 [place] [address]Dr. Villa Yanes Erythrocyte distribution width (RBC) [Ratio] 12.3 % Normal 11.0-15.0 [facility] Comment on above: Performed By: #### C BC ####[facility] Avxxwjssve[address] [place], [place] [address]Dr. Villa Yanes Hematocrit (Bld) [Volume fraction] 40.2 % Critically low 42.0-54.0 [facility] Comment on above: Performed By: #### C BC ####[facility] Ntyhfypqrs02[address] [place], [place] [address]Dr. Villa Yanes Hemoglobin (Bld) [Mass/Vol] 12.9 g/dL Critically low 14.0-18.0 [facility] Comment on above: Performed By: #### C BC ####[facility] Mabvdxwaxa5459 [place] [address]Dr. Villa Yanes IG # 0.16 10e3/ul Critically high 0.00-0.03 [facility] Comment on above: Performed By: #### C BC ####[facility] Vebborgqxj8255 [place] [address]Dr. Villa Joaquín IG % 1.0 % Critically high 0.0-0.5 [facility] Comment on above: Performed By: #### C BC ####[facility] Puswupmihr2233 [place] [address]Dr. Villa Yanes LYMPH # 1.2 103/ul Normal 1.2-3.8 [facility] Comment on above: Performed By: #### C BC ####[facility] Recxbbugwh3769 [place] [address]Dr. Villa Yanes Lymphocytes/100 WBC (Bld) 7.2 % Critically low 20.5-60.0 [facility] Comment on above: Performed By: #### C BC ####[facility] Mozziyeyiu2195 [place] [address]Dr. Brooklynkaren Yanes MANUAL DIFF REQ NO Normal [facility] Comment on above: Performed By: #### C BC ####[facility] Bdktpsudkq8333 [place] [address]Dr. Villa Joaquín MCH (RBC) [Entitic mass] 31.9 pg Normal 25.9-34.0 [facility] Comment on above: Performed By: #### C BC ####[facility] Wxbeahxdvx1461 [place] [address]Dr. Villa Joaquín MCHC (RBC) [Mass/Vol] 32.1 g/dL Normal 29.9-35.2 [facility] Comment on above: Performed By: #### C BC ####[facility] Yyumzysaqi7266 [place] [address]DrBrenden Yanes MCV (RBC) [Entitic vol] 99.5 fL Critically high 80.0-94.0 [facility] Comment on above: Performed By: #### C BC ####[facility] Sfzljduaoz6631 [place] [address]DrBrenden Yanes MONO # 0.9 103/ul Critically high 0.3-0.8 [facility] Comment on above: Performed By: #### C BC ####[facility] Wlfmigiuuy0023 [place] [address]DrBrenden Yanes Monocytes/100 WBC (Bld) 5.6 % Normal 1.7-12.0 [facility] Comment on above: Performed By: #### C BC ####[facility] Uohzzkeoqw[address] [place], [place] [address]Dr. Villa Yanes NEUT # 14.1 103/ul Critically high 1.4-6.5 [facility] Comment on above: Performed By: #### C BC ####[facility] Krdnutnjtj[address] [place], [place] [address]Dr. Villa Yanes Neutrophils/100 WBC (Bld) 85.4 % Critically high 43.0-75.0 [facility] Comment on above: Performed By: #### C BC ####[facility] Phvhflgcoe4167 [place] [address]Dr. Villa Yanes Platelet mean volume (Bld) [Entitic vol] 9.9 fL Normal 9.5-13.5 [facility] Comment on above: Performed By: #### C BC ####[facility] Mydknamcmc[address] [place], [place] [address]Dr. Villa Yanes PLT 275 103/ul Normal 150-450 [facility] Comment on above: Performed By: #### C BC ####[facility] Tnpqaeklup[address] [place], [place] [address]DrBrenden Yanes RBC 4.04 106/ul Critically low 4.70-6.10 [facility] Comment on above: Performed By: #### C BC ####[facility] Wemspfnosl[address] [place], [place] [address]DrBrenden Driver Yanes WBC 16.5 103/ul Critically high 4.0-11.0 [facility] Comment on above: Performed By: #### C BC ####[facility] Mxmwdwvqeq[address] [place], [place] [address]Dr. Brooklynkaren Joaquín CT ABD/PELV W CONon 09-13-[address] ABD/PELV W CON Normal [facility] ER URINE PROFILEon 3 Bilirubin Ql (U) Negative Normal NEGATIVE [facility] Comment on above: Performed By: #### E RUR ####[facility] Zgwxamkuty[address] [place], [place] [address]Dr. Villa Yanes Clarity (U) CLEAR Normal CLEAR [facility] Comment on above: Performed By: #### E RUR ####[facility] Nrukvnusex[address] [place], [place] [address]Dr. Villa Yanes Color (U) LT. YELLOW Normal YELLOW [facility] Comment on above: Performed By: #### E RUR ####[facility] S[address]hsmwboi[address] [place], [place] [address]Dr. Villa Yanes ERUAHD A micrscopic examina tion will be performed if indicated. Normal [facility] Comment on above: Performed By: #### E RUR ####[facility] Pwmkqxoidt[address] [place], [place] [address]Dr. Villa Yanes Glucose Ql (U) Negative Normal NEGATIVE [facility] Comment on above: Performed By: #### E RUR ####[facility] Vhlshuswuu[address] [place], [place] [address]Dr. Villa Yanes Hemoglobin Ql (U) Negative Normal NEGATIVE [facility] Comment on above: Performed By: #### E RUR ####[facility] Zrrazimkhl[address] [place], [place] [address]Dr. Villa Yanes Ketones Ql (U) Negative Normal NEGATIVE [facility] Comment on above: Performed By: #### E RUR ####[facility] Tfsdwhrmam2[address] [place], [place] [address]Dr. Villa Yanes LEUKOCYTES Negative Normal NEGATIVE [facility] Comment on above: Performed By: #### E RUR ####[facility] Klcgpsgulg3630 [place] [address]Dr. Villa Yaens Nitrite Ql (U) Negative Normal NEGATIVE [facility] Comment on above: Performed By: #### E RUR ####[facility] Ulzuounrvb8542 [place] [address]Dr. Villa Yanes pH (U) 8.0 [pH] Normal 5-9 [facility] Comment on above: Performed By: #### E RUR ####[facility] Kqntcffbbq[address] [place], [place] [address]Dr. Villa Yanes Protein (U) [Mass/Vol] 100 mg/dL Abnormal NEGATIVE/ TRACE [facility] Comment on above: Performed By: #### E RUR ####[facility] Inxxzbfjyq[address] [place], [place] [address]Dr. Villa Yanes SPEC GRAVITY 1.020 Normal 1.005-<=1.[address] [place] [address] Comment on above: Performed By: #### E RUR ####[facility] Oahovonnaa[address] [place], [place] [address]Dr. Villa Yanes UR MICRO IND NOT INDICATED Normal [facility] Comment on above: Performed By: #### E RUR ####[facility] Aauduuzlsi[address] [place], [place] [address]Dr. Villa Yanes Urobilinogen Qn (U) 0.2 {Mackenzie'U}/dL Normal 0.2 - 1. 0 [facility] Comment on above: Performed By: #### E RUR ####[facility] Uwbwvwxwry[address] [place], [place] [address]Dr. Villa Yanes PROF 14(COMP METB)on 023 Albumin [Mass/Vol] 3.3 g/dL Critically low 3.4-5.0 [facility] Comment on above: Performed By: #### H DEE, CMP ####[facility] Gaepifrxan[address] [place], [place] [address]Dr. Villa Yanes Albumin/Globulin [Mass ratio] 0.9 {ratio} Normal [facility] Comment on above: Performed By: #### H STROPN, CMP ####[facility] Xherhslpnc9705 [place] [id number]. Villa Yanes ALP [Catalytic activity/Vol] 208 U/L Critically high 46-116 [facility] Comment on above: Performed By: #### H STROPN, CMP ####[facility] Jqurksphms2452 [place] [id number]. Villa Yanes ALT [Catalytic activity/Vol] 16 U/L Normal 16-63 [facility] Comment on above: Performed By: #### H STROPN, CMP ####[facility] Rhvcikkkcr1373 [place] [id number]. Villa Joaquín Anion gap [Moles/Vol] 11.3 mmol/L Normal Th [facility] Comment on above: Performed By: #### H STROPN, CMP ####[facility] Krycketewq5253 [place] [address]Dr. Villa Yanes AST [Catalytic activity/Vol] 12 U/L Critically low 15-37 [facility] Comment on above: Performed By: #### H STROPN, CMP ####[facility] Sbrpwtmmvf2696 [place] [address]Dr. Villa Yanes Bilirubin [Mass/Vol] 0.3 mg/dL Normal 0.2-1.0 [facility] Comment on above: Performed By: #### H STROPN, CMP ####[facility] Gabytihlwc7968 [place] [address]Dr. Brooklynkaren Yanes Calcium [Mass/Vol] 9.8 mg/dL Normal 8.5-10.1 [facility] Comment on above: Performed By: #### H STROPN, CMP ####[facility] Tkqznfrhkz1846 [place] [address]Dr. Brooklynkaren Yanes Chloride [Moles/Vol] 103 mmol/L Normal 98-107 [facility] Comment on above: Performed By: #### H STROPN, CMP ####[facility] Mcimaubzvl0007 [place] [address]Dr. Villa Yanes CO2 [Moles/Vol] 29.6 mmol/L Normal 21.0-32.0 [facility] Comment on above: Performed By: #### H STROPN, CMP ####[facility] Okngufeqxp6647 [place] [address]Dr. Villa Yanes Creatinine [Mass/Vol] 1.12 mg/dL Normal 0.70-1.30 [facility] Comment on above: Performed By: #### H STROPN, CMP ####[facility] Xcqmauswjz9317 [place] [address]Dr. Villa Yanes EGFR-AF CROATIAN >60 Normal >=60 [facility] Comment on above: Performed By: #### H STROPN, CMP ####[facility] Zzhfeadchr8642 [place] [address]Dr. Villa Yanes EGFR-NON AF CROATIAN >60 Normal >=60 [facility] Comment on above: Performed By: #### H STROPN, CMP ####[facility] Higeleqfrd6655 [place] [address]Dr. Villa Yanes Globulin (S) [Mass/Vol] 3.7 g/dL Normal [facility] Comment on above: Performed By: #### H STROPN, CMP ####[facility] Efhagtckee2375 [place] [address]Dr. Villa Yanes Glucose [Mass/Vol] 151 mg/dL Critically high 74-106 [facility] Comment on above: Performed By: #### H STROPN, CMP ####[facility] Yyihoadnpx7207 [place] [address]Dr. Villa Yanes Potassium [Moles/Vol] 3.9 mmol/L Normal 3.5-5.1 [facility] Comment on above: Performed By: #### H STROPN, CMP ####[facility] Ohrhybhvpu0658 [place] [address]Dr. Villa Yanes Protein [Mass/Vol] 7.0 g/dL Normal 6.4-8.2 [facility] Comment on above: Performed By: #### H STROPN, CMP ####[facility] Lhnomootzh6560 [place] [address]Dr. Villa Yanes Sodium [Moles/Vol] 140 mmol/L Normal 136-145 [facility] Comment on above: Performed By: #### H DEE, CMP ####[facility] Ovugnbmkky3463 [place] [address]Dr. Villa Yanes Urea nitrogen [Mass/Vol] 30.0 mg/dL Critically high 7.0-18.0 [facility] Comment on above: Performed By: #### H DEE, CMP ####[facility] Henwgrxvak6577 [place] [address]Dr. Villa Yanes Urea nitrogen/Creatinine [Mass ratio] 26.8 mg/mg Normal [facility] Comment on above: Performed By: #### Carlos PRICE CMP ####[facility] Drxzwiyica04[address] [place], [place] [address]Dr. Villa Yanes TROPONIN, HIGH SENSITIVITYon 09-12-2022 HSTROP 8.9 pg/mL Normal 4.0-76.1 [facility] Comment on above: Result Comment: CUT- OFF POINTS HAVE BEEN ESTABLISHED BASED ON THE FOURTH UNIVERSAL DEFINITIONS OF MYOCARDIALINFARCTION. THE UPPER REFERENCE LIMIT (URL) OF TROPONIN, DEFINED THE 99TH PERCENTILE OFcTnI DISTRIBUTION IN A REFERENCE POPULATION, HAS BEEN CONFIRMED THE DECISION THRESHOLDFOR CA DIAGNOSIS. Performed By: #### Carlos PRICE CMP ####[facility] Qiolmqubxv[address] [place], [place] [address]Dr. Brooklynkaren Yanes CBC AUTO DIFFon 08-18-2022 BASO # 0.1 103/ul Normal 0.0-0.1 [facility] Comment on above: Performed By: #### C BC ####[facility] Bgdzugpwwe[address] [place], [place] [address]Dr. Villa Yanes Basophils/100 WBC (Bld) 0.6 % Normal 0.2-2.0 [facility] Comment on above: Performed By: #### C BC ####[facility] Jjvmdvmfon[address] [place], [place] [address]Dr. Villa Yanes EO # 0.1 103/ul Normal 0.0-0.7 [facility] Comment on above: Performed By: #### C BC ####[facility] Qicepmxlnu5272 [place] [address]Dr. Villa Yanes Eosinophils/100 WBC (Bld) 1.2 % Normal 0.9-7.0 [facility] Comment on above: Performed By: #### C BC ####[facility] Ppqubkqqcl[address] [place], [place] [address]Dr. Villa Yanes Erythrocyte distribution width (RBC) [Ratio] 12.3 % Normal 11.0-15.0 [facility] Comment on above: Performed By: #### C BC ####[facility] Ostkqnbdkq49[address] [place], [place] [address]Dr. Villa Yanes Hematocrit (Bld) [Volume fraction] 31.9 % Critically low 42.0-54.0 [facility] Comment on above: Performed By: #### C BC ####[facility] Rbhvohtlbg[address] [place], [place] [address]Dr. Villa Yanes Hemoglobin (Bld) [Mass/Vol] 10.4 g/dL Critically low 14.0-18.0 [facility] Comment on above: Performed By: #### C BC ####[facility] Dxtdqlhtkd[address] [place], [place] [address]Dr. Villa Yanes IG # 0.09 10e3/ul Critically high 0.00-0.03 [facility] Comment on above: Performed By: #### C BC ####[facility] Pghjkyddfj[address] [place], [place] [address]Dr. Villa Yanes IG % 1.0 % Critically high 0.0-0.5 [facility] Comment on above: Performed By: #### C BC ####[facility] Ujnmfrhfua[address] [place], [place] [address]Dr. Villa Yanes LYMPH # 1.6 103/ul Normal 1.2-3.8 [facility] Comment on above: Performed By: #### C BC ####[facility] Ujkfmrqzng83[address] [place], [place] [address]Dr. Villa Yanes Lymphocytes/100 WBC (Bld) 17.9 % Critically low 20.5-60.0 [facility] Comment on above: Performed By: #### C BC ####[facility] Epjghyvsnn8376 [place] [id number]. Villa Yanes MANUAL DIFF REQ NO Normal [facility] Comment on above: Performed By: #### C BC ####[facility] Poofhudizl2679 [place] [id number]. Villa Yanes MCH (RBC) [Entitic mass] 32.2 pg Normal 25.9-34.0 [facility] Comment on above: Performed By: #### C BC ####[facility] Tgeuvpubhk5441 [place] [address]Dr. Villa Yanes MCHC (RBC) [Mass/Vol] 32.6 g/dL Normal 29.9-35.2 [facility] Comment on above: Performed By: #### C BC ####[facility] Zpcmngllll5516 [place] [address]Dr. Villa Yanes MCV (RBC) [Entitic vol] 98.8 fL Critically high 80.0-94.0 [facility] Comment on above: Performed By: #### C BC ####[facility] Qzwjbrrvpa[address] [place], [place] [address]Dr. Villa Joaquín MONO # 0.6 103/ul Normal 0.3-0.8 [facility] Comment on above: Performed By: #### C BC ####[facility] Zyosoxhigb93[address] [place], [place] [address]Dr. Brooklynkaren Yanes Monocytes/100 WBC (Bld) 6.6 % Normal 1.7-12.0 [facility] Comment on above: Performed By: #### C BC ####[facility] Bporsmqcci[address] [place], [place] [address]Dr. Villa Yanes NEUT # 6.6 103/ul Critically high 1.4-6.5 [facility] Comment on above: Performed By: #### C BC ####[facility] Tbuzkucydw17[address] [place], [place] [address]Dr. Brooklynkaren Yanes Neutrophils/100 WBC (Bld) 72.7 % Normal 43.0-75.0 [facility] Comment on above: Performed By: #### C BC ####[facility] Yadhahfcor9785 [place] [id number]. Villa Yanes Platelet mean volume (Bld) [Entitic vol] 9.6 fL Normal 9.5-13.5 [facility] Comment on above: Performed By: #### C BC ####[facility] Bvxgeaxclo2549 [place] [id number]. Villa Yanes PLT 206 103/ul Normal 150-450 [facility] Comment on above: Performed By: #### C BC ####[facility] M[address]gnyqkbd[address] [place], [place] [address]Dr. Villa Joaquín RBC 3.23 106/ul Critically low 4.70-6.10 [facility] Comment on above: Performed By: #### C BC ####[facility] Yjvqppmrfz67[address] [place], [place] [address]Dr. Brooklynkaren Yanes WBC 9.0 103/ul Normal 4.0-11.0 [facility] Comment on above: Performed By: #### C BC ####[facility] V[address]tajvqwt[address] [place], [place] [address]Dr. Brooklynkaren Yanes CULTURE URINEon 08-18-2022 CULTURE URINE Culture Observations : LIGHT GROWTH OF MIXED SKIN ARACELI. NO POTENTIAL PATHOGENS SEEN. Normal [facility] Comment on above: Performed By: #### U RCX ####[facility] Upjryppowq[address] [place], [place] [address]Dr. Villa Yanes PROF CHEM 8 (BAS METB)on Anion gap [Moles/Vol] 9.4 mmol/L Normal [facility] Comment on above: Performed By: #### B MP ####[facility] Jetsladksh3[address] [place], [place] [address]Dr. Villa Yanes Calcium [Mass/Vol] 8.8 mg/dL Normal 8.5-10.1 [facility] Comment on above: Performed By: #### B MP ####[facility] Wnmknodqyg[address] [place], [place] [address]Dr. Villa Yanes Chloride [Moles/Vol] 108 mmol/L Critically high 98-107 [facility] Comment on above: Performed By: #### B MP ####[facility] Wpikibtggc8779 [place] [address]Dr. Villa Yanes CO2 [Moles/Vol] 28.5 mmol/L Normal 21.0-32.0 [facility] Comment on above: Performed By: #### B MP ####[facility] Agqlmayhix8090 [place] [address]Dr. Villa Yanes Creatinine [Mass/Vol] 0.76 mg/dL Normal 0.70-1.30 [facility] Comment on above: Performed By: #### B MP ####[facility] Dasawfyayt4508 [place] [address]Dr. Villa Yanes EGFR-AF CROATIAN >60 Normal >=60 [facility] Comment on above: Performed By: #### B MP ####[facility] Gfhydtsfvi[address] [place], [place] [address]Dr. Brooklynkaren Joaquín EGFR-NON AF CROATIAN >60 Normal >=60 [facility] Comment on above: Performed By: #### B MP ####[facility] Phqqnnglll[address] [place], [place] [address]Dr. Villa Joaquín Glucose [Mass/Vol] 84 mg/dL Normal 74-106 [facility] Comment on above: Performed By: #### B MP ####[facility] Rpzzbedlpe[address] [place], [place] [address]Dr. Villa Joaquín Potassium [Moles/Vol] 3.9 mmol/L Normal 3.5-5.1 [facility] Comment on above: Performed By: #### B MP ####[facility] Hiazmmzwnu[address] [place], [place] [address]Dr. Villa Yanes Sodium [Moles/Vol] 142 mmol/L Normal 136-145 [facility] Comment on above: Performed By: #### B MP ####[facility] Ghfpgijouv34[address] [place], [place] [address]Dr. Brooklynkaren Yanes Urea nitrogen [Mass/Vol] 15.0 mg/dL Normal 7.0-18.0 [facility] Comment on above: Performed By: #### B MP ####[facility] [address]auce[address] [place] [address]Dr. Villa Yanes Urea nitrogen/Creatinine [Mass ratio] 19.7 mg/mg Normal [facility] Comment on above: Performed By: #### B MP ####[facility] Syftgbpvcg64[address] [place], [place] [address]Dr. Villa Yanes UA RANDOM W/MICROSCOPICon BACTERIA NONE SEEN Normal NONE SEEN [facility] Comment on above: Performed By: #### U AMIC ####[facility] Pnddkyiwho99[address] [place], [place] [address]Dr. Villa Yanes Bilirubin Ql (U) Negative Normal NEGATIVE [facility] Comment on above: Performed By: #### U AMIC ####[facility] Otxbqxuwex[address] [place], [place] [address]Dr. Villa Yanes CAST NONE SEEN Normal NONE SEEN [facility] Comment on above: Performed By: #### U AMIC ####[facility] Ywlhjmtbvd[address] [place], [place] [address]Dr. Villa Yanes Clarity (U) CLEAR Normal CLEAR [facility] Comment on above: Performed By: #### U AMIC ####[facility] Nuenzgverk9[address] [place], [place] [address]Dr. Villa Yanes Color (U) LT. YELLOW Normal YELLOW [facility] Comment on above: Performed By: #### U AMIC ####[facility] Fjrebfgcik24[address] [place], [place] [address]Dr. Villa Yanes Crystals LM Nom (Urine sed) NONE SEEN Normal NONE SEEN [facility] Comment on above: Performed By: #### U AMIC ####[facility] Vfwlfilgec05[address] [place], [place] [address]Dr. Villa Yanes Epithelial cells LM Ql (Urine sed) NONE SEEN Normal NONE SEEN /RARE [facility] Comment on above: Performed By: #### U AMIC ####[facility] Riifiamxew6[address] [place], [place] [address]Dr. Villa Yanes Glucose Ql (U) Negative Normal NEGATIVE [facility] Comment on above: Performed By: #### U AMIC ####[facility] [address]vtdhrql[address] [place] [address]Dr. Villa Yanes Hemoglobin Ql (U) Negative Normal NEGATIVE [facility] Comment on above: Performed By: #### U AMIC ####[facility] Qcfmmirsro329[address] [place], [place] [address]Dr. Villa Yanes Ketones Ql (U) Negative Normal NEGATIVE [facility] Comment on above: Performed By: #### U AMIC ####[facility] Fprwotugcn1432[address] [place], [place] [address]Dr. Villa Yanes LEUKOCYTES Negative Normal NEGATIVE [facility] Comment on above: Performed By: #### U AMIC ####[facility] Ndskgktumj39[address] [place], [place] [address]Dr. Villa Yanes MUCOUS NONE SEEN Normal NONE SEEN [facility] Comment on above: Performed By: #### U AMIC ####[facility] Uaaylealhg260[address] [place], [place] [address]Dr. Villa Yanes Nitrite Ql (U) Negative Normal NEGATIVE [facility] Comment on above: Performed By: #### U AMIC ####[facility] Gtxokeqtgs56[address] [place], [place] [address]Dr. Villa Yanes pH (U) 7.0 [pH] Normal 5-9 [facility] Comment on above: Performed By: #### U AMIC ####[facility] Pzcihahgbm2[address] [place], [place] [address]Dr. Villa Yanes RBC 0-2 Normal 0-2 [facility] Comment on above: Performed By: #### U AMIC ####[facility] Mhpltnpxyd[address] [place], [place] [address]Dr. Villa Yanes SPEC GRAVITY 1.015 Normal 1.005-<=1.0 25 [facility] Comment on above: Performed By: #### U AMIC ####[facility] Jpyypjlaxj5[address] [place], [place] [address]Dr. Villa Yanes UA PROTEIN 100 mg/dl Abnormal NEGATIVE/ TRACE [facility] Comment on above: Performed By: #### U AMIC ####[facility] Ktkcsylhzl0[address] [place], [place] [address]Dr. Villa Yanes Urobilinogen Qn (U) 0.2 {Mackenzie'U}/dL Normal 0.2 - 1. 0 [facility] Comment on above: Performed By: #### U AMIC ####[facility] [address]limvgdv[address] [place] [address]Dr. Villa Yanes WBC NONE SEEN Normal NONE SEEN [facility] Comment on above: Performed By: #### U AMIC ####[facility] [address]qup[address] [place] [address]Dr. Villa Yanes ACETONE SERUMon 08-17-2022 ACETONE Negative Normal NEGATIVE [facility] Comment on above: Performed By: #### A CETON ####[facility] Fiywxrsauo[address] [place], [place] [address]Dr. Villa Yanes CBC AUTO DIFFon 08-17-2022 BASO # 0.1 103/ul Normal 0.0-0.1 [facility] Comment on above: Performed By: #### C BC ####[facility] [address]rodj[address] [place] [address]Dr. Villa Yanes Basophils/100 WBC (Bld) 0.4 % Normal 0.2-2.0 [facility] Comment on above: Performed By: #### C BC ####[facility] Cufekpmbne[address] [place] [address]Dr. Villa Yanes EO # 0.1 103/ul Normal 0.0-0.7 [facility] Comment on above: Performed By: #### C BC ####[facility] Rkfulgxumv9[address] [place] [address]Dr. Villa Yanes Eosinophils/100 WBC (Bld) 0.4 % Critically low 0.9-7.0 [facility] Comment on above: Performed By: #### C BC ####[facility] [address]zwl[address] [place] [address]Dr. Villa Yanes Erythrocyte distribution width (RBC) [Ratio] 12.5 % Normal 11.0-15.0 [facility] Comment on above: Performed By: #### C BC ####[facility] X[address]av[address]haac[address] [place] [address]Dr. Villa Yanes Hematocrit (Bld) [Volume fraction] 37.8 % Critically low 42.0-54.0 [facility] Comment on above: Performed By: #### C BC ####[facility] Dvloxnkrku[address] [place] [address]Dr. Brooklynkaren Yanes Hemoglobin (Bld) [Mass/Vol] 12.4 g/dL Critically low 14.0-18.0 [facility] Comment on above: Performed By: #### C BC ####[facility] [address]zqtzvty[address] [place] [address]Dr. Villa Yanes IG # 0.16 10e3/ul Critically high 0.00-0.03 [facility] Comment on above: Performed By: #### C BC ####[facility] T[address]mmevf[address] [place] [address]Dr. Villa Yanes IG % 1.2 % Critically high 0.0-0.5 [facility] Comment on above: Performed By: #### C BC ####[facility] T[address]aydtjfs[address] [place] [address]Dr. Villa Yanes LYMPH # 1.1 103/ul Critically low 1.2-3.8 [facility] Comment on above: Performed By: #### C BC ####[facility] Fjlurzxcrc[address] [place] [address]Dr. Villa Yanes Lymphocytes/100 WBC (Bld) 8.0 % Critically low 20.5-60.0 [facility] Comment on above: Performed By: #### C BC ####[facility] [address]lhhskdife[address] [place] [address]Dr. Villa Yanes MANUAL DIFF REQ NO Normal [facility] Comment on above: Performed By: #### C BC ####[facility] Gvzbmpvztf[address] [place], [place] [address]DrBrenden Yanes MCH (RBC) [Entitic mass] 32.0 pg Normal 25.9-34.0 [facility] Comment on above: Performed By: #### C BC ####[facility] [address]iwjhpg54[address] [place] [id number]. Villa Yanes MCHC (RBC) [Mass/Vol] 32.8 g/dL Normal 29.9-35.2 [facility] Comment on above: Performed By: #### C BC ####[facility] Cm[address]wiqprp97[address] [place] [id number]. Villa Yanes MCV (RBC) [Entitic vol] 97.7 fL Critically high 80.0-94.0 [facility] Comment on above: Performed By: #### C BC ####[facility] Rak[address]tyenpv18[address] [place] [id number]. Villa Yanes MONO # 0.9 103/ul Critically high 0.3-0.8 [facility] Comment on above: Performed By: #### C BC ####[facility] Gayovfzshv8[address] [place] [id number]. Brooklynkaren Yanes Monocytes/100 WBC (Bld) 6.4 % Normal 1.7-12.0 [facility] Comment on above: Performed By: #### C BC ####[facility] Zwlqjdopta24[address] [place] [id number]. Villa Yanes NEUT # 11.3 103/ul Critically high 1.4-6.5 [facility] Comment on above: Performed By: #### C BC ####[facility] Xddnmmrskd112[address] [place] [id number]. Villa Joaquín Neutrophils/100 WBC (Bld) 83.6 % Critically high 43.0-75.0 [facility] Comment on above: Performed By: #### C BC ####[facility] Nwnpgxumpx04[address] [place] [phone]. Villa Yanes Platelet mean volume (Bld) [Entitic vol] 9.2 fL Critically low 9.5-13.5 [facility] Comment on above: Performed By: #### C BC ####[facility] Dsczacpuub[address] [place] [id number]. Villa Joaquín PLT 279 103/ul Normal 150-450 [facility] Comment on above: Performed By: #### C BC ####[facility] Fmibjgyabp[address] [place] [address]Dr. Villa Yanes RBC 3.87 106/ul Critically low 4.70-6.10 [facility] Comment on above: Performed By: #### C BC ####[facility] Eawhitijje[address] [place] [address]Dr. Villa Yanes WBC 13.6 103/ul Critically high 4.0-11.0 [facility] Comment on above: Performed By: #### C BC ####[facility] Cjlhagaosb[address] [place], [place] [address]Dr. Villa Yanes LACTATE/LACTIC ACIDon 2022 Lactate [Moles/Vol] 1.4 mmol/L Normal 0.4-2.0 [facility] Comment on above: Performed By: #### L ACT ####[facility] Cofhjqcsps[address] [place], [place] [address]Dr. Villa Yanes Lactate [Moles/Vol] 1.6 mmol/L Normal 0.4-2.0 [facility] Comment on above: Performed By: #### L ACT ####[facility] Xemerfwjco[address] [place], [place] [address]Dr. Villa Yanes LIPASEon 08-17-2022 Lipase [Catalytic activity/Vol] 37.0 U/L Critically low 73.0-393.0 [facility] Comment on above: Performed By: #### L IPA ####[facility] Dodelnnocu[address] [place], [place] [address]Dr. Brooklynkaren Joaquín POINT OF CARE GLUCOSEon 07-23 Glucose [Mass/Vol] 118 mg/dL Critically high 74-106 [facility] Comment on above: Performed By: #### P OCGLUC ####[facility] Nsyppmsshh[address] [place], [place] [address]Dr. Villa Yanes Glucose [Mass/Vol] 124 mg/dL Critically high 74-106 [facility] Comment on above: Performed By: #### P OCGLUC ####[facility] Ittsweuobq4[address] [place], [place] [address]Dr. Villa Yanes PROF 14(COMP METB)on 023 Albumin [Mass/Vol] 3.2 g/dL Critically low 3.4-5.0 [facility] Comment on above: Performed By: #### C SHALOM, HSTROPN ####[facility] Nzwizzwimq[address] [place] [address]Dr. Villa Yanes Albumin/Globulin [Mass ratio] 1.0 {ratio} Normal [facility] Comment on above: Performed By: #### C SHALOM, HSTROPN ####[facility] Fybdhwmrdt16[address] [place] [address]Dr. Villa Yanes ALP [Catalytic activity/Vol] 148 U/L Critically high 46-116 [facility] Comment on above: Performed By: #### C SHALOM, HSTROPN ####[facility] Qwuhmjpoim5[address] [place] [address]Dr. Villa Yanes ALT [Catalytic activity/Vol] 11 U/L Critically low 16-63 [facility] Comment on above: Performed By: #### C SHALOM, HSTROPN ####[facility] Aihwsnugxl[address] [place], [place] [address]Dr. Villa Yanes Anion gap [Moles/Vol] 14.2 mmol/L Normal [facility] Comment on above: Performed By: #### C SHALOM, HSTROPN ####[facility] Lxeznzusfx[address] [place], [place] [address]Dr. Villa Yanes AST [Catalytic activity/Vol] 9 U/L Critically low 15-37 [facility] Comment on above: Performed By: #### C SHALOM HSTROPN ####[facility] Evdhspmqfq8137[address] [place], [place] [address]Dr. Villa Yanes Bilirubin [Mass/Vol] 0.4 mg/dL Normal 0.2-1.0 [facility] Comment on above: Performed By: #### C SHALOM, HSTROPN ####[facility] Pmpjozvkvt26[address] [place], [place] [address]Dr. Villa Yanes Calcium [Mass/Vol] 9.3 mg/dL Normal 8.5-10.1 [facility] Comment on above: Performed By: #### C MP, HSTROPN ####[facility] [address]ffhswzkg[address] [place] [address]Dr. Villa Yanes Chloride [Moles/Vol] 104 mmol/L Normal 98-107 [facility] Comment on above: Performed By: #### C MP, HSTROPN ####[facility] Exuflkacbw24[address] [place] [address]Dr. Villa Yanes CO2 [Moles/Vol] 27.5 mmol/L Normal 21.0-32.0 [facility] Comment on above: Performed By: #### C MP, HSTROPN ####[facility] Rnoflpdahi34[address] [place] [address]Dr. Villa Yanes Creatinine [Mass/Vol] 1.11 mg/dL Normal 0.70-1.30 [facility] Comment on above: Performed By: #### C MP, HSTROPN ####[facility] Ygyjmahdaw94[address] [place], [place] [address]Dr. Villa Yanes EGFR-AF CROATIAN >60 Normal >=60 [facility] Comment on above: Performed By: #### C MP, HSTROPN ####[facility] Aajyjzlnss6[address] [place], [place] [address]Dr. Villa Yanes EGFR-NON AF CROATIAN >60 Normal >=60 [facility] Comment on above: Performed By: #### C MP, HSTROPN ####[facility] Urejxooqxb29[address] [place] [address]Dr. Villa Yanes Globulin (S) [Mass/Vol] 3.2 g/dL Normal [facility] Comment on above: Performed By: #### C MP, HSTROPN ####[facility] Mbnsvzhzif15[address] [place] [address]Dr. Villa Yanes Glucose [Mass/Vol] 163 mg/dL Critically high 74-106 [facility] Comment on above: Performed By: #### C MP, HSTROPN ####[facility] Dxhswafelx79[address] [place] [address]Dr. Villa Yanes Potassium [Moles/Vol] 3.7 mmol/L Normal 3.5-5.1 [facility] Comment on above: Performed By: #### C SHALOM, HSTROPN ####[facility] Zjmkriyeen25[address] [place] [address]Dr. Villa Yanes Protein [Mass/Vol] 6.4 g/dL Normal 6.4-8.2 [facility] Comment on above: Performed By: #### C SHALOM, HSTROPN ####[facility] Ehbhxvuyjq7[address] [place], [place] [address]Dr. Villa Yanes Sodium [Moles/Vol] 142 mmol/L Normal 136-145 [facility] Comment on above: Performed By: #### C SHALOM, HSTROPN ####[facility] Schkvzppyy1139[address] [place], [place] [address]Dr. Villa Yanes Urea nitrogen [Mass/Vol] 23.0 mg/dL Critically high 7.0-18.0 [facility] Comment on above: Performed By: #### C SHALOM, HSTROPN ####[facility] Ytesyalxxo80[address] [place], [place] [address]Dr. Villa Yanes Urea nitrogen/Creatinine [Mass ratio] 20.7 mg/mg Normal [facility] Comment on above: Performed By: #### C SHALOM HSTROPN ####[facility] Pfsmtcgayf50[address] [place], [place] [address]Dr. Villa Yanes RESPIRATORY PANEL PLUSon Adenovirus Not detected Normal NOT DETECTED [facility] Comment on above: Performed By: #### R SPLUS ####[facility] Gojuzfxagk[address] [place], [place] [address]Dr. Villa Yanes B. Parapertusis Not detected Normal NOT DETECTED [facility] Comment on above: Performed By: #### R SPLUS ####[facility] Spbxzmknti[address] [place], [place] [address]Dr. Villa Yanes B. Pertussis Not detected Normal NOT DETECTED [facility] Comment on above: Performed By: #### R SPLUS ####[facility] Ncegsdgtmn60[address] [place], [place] [address]Dr. Villa Yanes Chlamydia Pneumoniae Not detected Normal NOT DETECTED [facility] Comment on above: Performed By: #### R SPLUS ####[facility] Gvyixiihjx70[address] [place] [address]Dr. Villa [facility] Coronavirus 229E Not detected Normal NOT DETECTED [facility] Comment on above: Performed By: #### R SPLUS ####[facility] Lsshjviyuj96[address] [place], [place] [address]Dr. Villa [facility] Coronavirus HKU1 Not detected Normal NOT DETECTED [facility] Comment on above: Performed By: #### R SPLUS ####[facility] Eyemmtotxc07[address] [place], [place] [address]Dr. Villa [facility] Coronavirus NL63 Not detected Normal NOT DETECTED [facility] Comment on above: Performed By: #### R SPLUS ####[facility] Qmsqbjpbhf1726[address] [place], [place] [address]Dr. [facility] Coronavirus OC43 Not detected Normal NOT DETECTED [facility] Comment on above: Performed By: #### R SPLUS ####[facility] Hvprdxydgx[address] [place], [place] [address]Dr. Yikaren Yanes Influenza A H1 Not detected Normal NOT DETECTED [facility] Comment on above: Performed By: #### R SPLUS ####[facility] Mrxeoctbur9075[address] [place], [place] [address]Dr. Villa Yanes Influenza A H1 2009 Not detected Normal NOT DETECTED [facility] Comment on above: Performed By: #### R SPLUS ####[facility] Pwxjzzqpmr20[address] [place], [place] [address]Dr. Yikaren Yanes Influenza A H3 Not detected Normal NOT DETECTED [facility] Comment on above: Performed By: #### R SPLUS ####[facility] Vladpaifvj9[address] [place], [place] [address]Dr. Yikaren Yanes Influenza B Not detected Normal NOT DETECTED [facility] Comment on above: Performed By: #### R SPLUS ####[facility] Dokvmoflog7207[address] [place], [place] [address]Dr. Yikaren Yanes Metapneumovirus Not detected Normal NOT DETECTED [facility] Comment on above: Performed By: #### R SPLUS ####[facility] Roteqysbzy[address] [place] [address]Dr. Villa Yanes Mycoplas. Pneumoniae Not detected Normal NOT DETECTED [facility] Comment on above: Performed By: #### R SPLUS ####[facility] Sbqukomwcq3846[address] [place], [place] [address]Dr. Yikaren Yanes Parainfluenza 1 Not detected Normal NOT DETECTED [facility] Comment on above: Performed By: #### R SPLUS ####[facility] Ctkligwpxg4467[address] [place], [place] [address]Dr. Yikaren Yanes Parainfluenza 2 Not detected Normal NOT DETECTED [facility] Comment on above: Performed By: #### R SPLUS ####[facility] Xztdgxozvq01[address] [place], [place] [address]Dr. Villa Yanes Parainfluenza 3 Not detected Normal NOT DETECTED [facility] Comment on above: Performed By: #### R SPLUS ####[facility] Jygqxvsjpu6[address] [place], [place] [address]Dr. Yikaren Yanes Parainfluenza 4 Not detected Normal NOT DETECTED [facility] Comment on above: Performed By: #### R SPLUS ####[facility] Cznzivdkbp[address] [place], [place] [address]Dr. Yilan Yanes Rhino/Enterovirus Not detected Normal NOT DETECTED [facility] Comment on above: Performed By: #### R SPLUS ####[facility] Dtlmrnxvoj19[address] [place], [place] [address]Dr. Yikaren Yanes RP2 Header 1 RESPIRATORY PANEL: VIRUSES Normal [facility] Comment on above: Performed By: #### R SPLUS ####[facility] Lufgllrzhy[address] [place], [place] [address]Dr. Yilan Yanes RP2 Header 2 RESPIRATORY PANEL: BACTERIA Normal [facility] Comment on above: Performed By: #### R SPLUS ####[facility] Aqonmiytwh[address] [place], [place] [address]Dr. Yilan Yanes RSV Not detected Normal NOT DETECTED [facility] Comment on above: Performed By: #### R SPLUS ####[facility] Mitphxpxwr2635 [place], [place] [address]Wj. Villa Yanes SARS-CoV-2 (COVID-19) RNA SHELLY+probe Ql (Unsp spec) Not detected Normal NOT DETECTED [facility] Comment on above: Performed By: #### R SPLUS ####[facility] Usenelhpzz3228 [place], [place] [address]Zj. Villa Yanes TROPONIN, HIGH SENSITIVITYon 08-17-2022 HSTROP 9.7 pg/mL Normal 4.0-76.1 [facility] Comment on above: Result Comment: CUT- OFF POINTS HAVE BEEN ESTABLISHED BASED ON THE FOURTH UNIVERSAL DEFINITIONS OF MYOCARDIALINFARCTION. THE UPPER REFERENCE LIMIT (URL) OF TROPONIN, DEFINED THE 99TH PERCENTILE OFcTnI DISTRIBUTION IN A REFERENCE POPULATION, HAS BEEN CONFIRMED THE DECISION THRESHOLDFOR CA DIAGNOSIS. Performed By: #### C MP, HSTROPN ####[facility] Ekvzllndhr9356 [place], [place] [address]Mf. 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 (414.01) (I25.10) History of myocardial infarction (412) (I25.2) History of PTCA (V45.82) (Z98.61) Weight loss (783.21) (R63.4) Diabetes mellitus (250.00) (E11.9) Paroxysmal atrial fibrillation (427.31) (I48.0) Current smoker (305.1) (F17.200) 1 ppd BMI less than 19,adult (V85.0) (Z68.1) Orders BMI less than 19,adult Healthy Weight Tips; Status:Complete - Retrospective Authorization; Done: 04Aug2022 Coronary artery disease involving s[place] coronary artery of [place] heart without angina pectoris, Hyperlipidemia Renew: Atorvastatin Calcium 20 MG Oral Tablet; TAKE 1 TABLET AT BEDTIME SocHx: Current smoker You need to stop smoking. Though it is not easy, more than half of all adult smokers have quit. We encourage you to write down all the reasons you should quit smoking and set a quit date for yourself. Ask us how we can help. You may also call 0-593-ZUPP-NOW for free resources and assistance.; Status:Complete - Retrospective Authorization; Done: 04Aug2022 Tobacco Use Screening; Status:Complete; Done: 04Aug2022 Patient Instructions Please bring all medicines, vitamins, and herbal supplements with you when you come to the office. Prescriptions will not be filled unless you are compliant with your follow up appointments or have a follow up appointment scheduled as per instruction of your physician. Refills should be requested at the time of your visit. Fall prevention education given Patient may proceed with surgery, instructed to hold eliquis for 3 days prior to surgery, resume 1 day post op Follow up in 1 year Chief Complaint FRANKI HERNANDEZ is being seen for a 6 month follow-up of. Patient is an 82-year-old gentleman seeking preoperative risk assessment and clearance prior to lumbar surgical intervention with Dr. Lott, who I believe is going to perform a low risk laminoplasty as an outpatient. Patient himself has known coronary disease, who I first came to know 1 year ago when he had a non-ST elevation CA associated with pneumonia, and initial ejection fraction of 30% and subsequent revascularization of the right coronary artery with a drug-eluting stent and follow-up ejection fraction improved to 45 to 50% following revascularization. 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 Coronary anatomy reveals mild 10 to 25% disease in the circumflex and LAD system, his RCA was 95% and we revascularized that again with improved left ventricular function. He has paroxysmal A-fib. Recommendations: He is clear for his intended low risk procedure, he can discontinue clopidogrel altogether, hold Eliquis 3 days prior to his surgery and reinitiate thereafterwards, provided 3 to 5 minutes of smoking cessation counseling with him and his family and will follow-up otherwise in 1 year Surgical History Problems History of Cardiac catheterization with stent placement History of Cataract surgery History of Complete colonoscopy Managed By: Shukri Poole MD (General Surgery) History of Epiglottidectomy History of Esophagogastroduodenoscopy History of Excision of basal cell carcinoma History of Lower back surgery History of Percutaneous endoscopic gastrostomy tube insertion 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 Clopidogrel Bisulfate 75 MG Oral TabletTAKE 1 TABLET DAILY. Eliquis 5 MG Oral TabletTake 1 tablet twice daily Ferrous Sulfate 220 (44 Fe) MG/5ML Oral LiquidTake once daily Finasteride 5 MG Oral TabletTAKE 1 TABLET DAILY. HYDROcodone-Acetaminophen 10-325 MG Oral TabletTAKE TABLET PRN Lantus SoloStar 100 UNIT/ML Subcutaneous Solution Pen-injectorUSE DIRECTED. Levemir FlexTouch 100 UNIT/ML SOPNUSE DIRECTED. Levothyroxine Sodium 75 MCG Oral TabletTake 1 tablet daily Pantoprazole Sodium 20 MG Oral Tablet Delayed ReleaseTAKE 1 TABLET DAILY. Liquid form Allergies Medication JENNIFER Inhibitors Hypotension;; Recorded By: Rochelle Herrmann; 02/23/2022 12:50:26 PM Brilinta TABS Adverse Reaction; Shortness of breath;; Recorded By: Carly Howard; 09/11/2021 9:51:25 AM Aspirin TABS Adverse Reaction; high risk of bleed; Recorded By: Tuan Pierre; 08/04/2022 11:33:24 AM Social History Problems Caffeine use (V49.89) (Z78.9) some tea Current smoker (305.1) (F17.200) 1 ppd No alcohol use No illicit drug use Review of Systems Constitutional: not feeling tired. Cardiovascular: no intermittent leg claudication and as noted in HPI. Respiratory: shortness of breath during exertion, but no cough and no shortness of breath. Gastrointestinal: no hobson (more content not included)... Normal Decision Pace Tobacco Screening.on 023 Adult depression screening assessment No [facility] [employer] DO Work Phone: Fall risk assessment b) One or more fall s in the last year [facility] [employer] DO Work Phone: Tobacco use status CPHS a) Yes [facility] [employer] DO Work Phone: XR ABD FLAT_UPon 07-31-2022 XR ABD FLAT_UP Normal [facility] AMMONIAon 07-30-2022 Ammonia (P) [Moles/Vol] 10 umol/L Critically low 11-32 [facility] Comment on above: Performed By: #### A MM ####[facility] Spnwmywdtl[address] [place], [place] [address]Dr. Villa Yanes AMYLASEon 07-30-2022 Amylase [Catalytic activity/Vol] 36 U/L Normal 25-115 [facility] Comment on above: Performed By: #### L IPA, TSH, CANDIE, T7, CMP ####[facility] Tmbtaoliyl[address] [place], [place] [address]Dr. Villa Yanes CBC AUTO DIFFon 07-30-2022 BASO # 0.1 103/ul Normal 0.0-0.1 [facility] Comment on above: Performed By: #### C BC ####[facility] Hpbmpzpcnc[address] [place], [place] [address]Dr. Villa Yanes Basophils/100 WBC (Bld) 0.7 % Normal 0.2-2.0 [facility] Comment on above: Performed By: #### C BC ####[facility] Gwhkxpbzbj[address] [place], [place] [address]Dr. Villa Yanes EO # 0.0 103/ul Normal 0.0-0.7 [facility] Comment on above: Performed By: #### C BC ####[facility] Fwmkgnmnyc[address] [place], [place] [address]Dr. Villa Yanes Eosinophils/100 WBC (Bld) 0.3 % Critically low 0.9-7.0 [facility] Comment on above: Performed By: #### C BC ####[facility] Vqrblfzdcy6[address] [place], [place] [address]Dr. Villa Yanes Erythrocyte distribution width (RBC) [Ratio] 13.1 % Normal 11.0-15.0 [facility] Comment on above: Performed By: #### C BC ####[facility] Btdfxawksy35[address] [place], [place] [address]Dr. Brooklynkaren Yanes Hematocrit (Bld) [Volume fraction] 41.2 % Critically low 42.0-54.0 [facility] Comment on above: Performed By: #### C BC ####[facility] [address] [place] [id number]. Villa Yanes Hemoglobin (Bld) [Mass/Vol] 13.7 g/dL Critically low 14.0-18.0 [facility] Comment on above: Performed By: #### C BC ####[facility] Tqxtzdfrtu[address] [place] [id number]. Villa Yanes IG # 0.41 10e3/ul Critically high 0.00-0.03 [facility] Comment on above: Performed By: #### C BC ####[facility] [address] [place] [address]Dr. Villa Yanes IG % 2.8 % Critically high 0.0-0.5 [facility] Comment on above: Performed By: #### C BC ####[facility] Ywfvsrxwrw22[address] [place], [place] [address]Dr. Villa Yanes LYMPH # 1.7 103/ul Normal 1.2-3.8 [facility] Comment on above: Performed By: #### C BC ####[facility] Uupvbqqksq1119[address] [place], [place] [address]Dr. Villa Yanes Lymphocytes/100 WBC (Bld) 11.4 % Critically low 20.5-60.0 [facility] Comment on above: Performed By: #### C BC ####[facility] [address] [place] [address]Dr. Villa Yanes MANUAL DIFF REQ NO Normal [facility] Comment on above: Performed By: #### C BC ####[facility] Ikbzcyllfx8[address] [place], [place] [address]Dr. Villa Yanes MCH (RBC) [Entitic mass] 31.9 pg Normal 25.9-34.0 [facility] Comment on above: Performed By: #### C BC ####[facility] Nraflzsszo[address] [place], [place] [address]Dr. Villa Yanes MCHC (RBC) [Mass/Vol] 33.3 g/dL Normal 29.9-35.2 [facility] Comment on above: Performed By: #### C BC ####[facility] W[address]xtwl12[address] [place] [id number]. Villa Yanes MCV (RBC) [Entitic vol] 96.0 fL Critically high 80.0-94.0 [facility] Comment on above: Performed By: #### C BC ####[facility] Usaxwqjnuh14[address] [place] [id number]. Villa Yanes MONO # 0.9 103/ul Critically high 0.3-0.8 [facility] Comment on above: Performed By: #### C BC ####[facility] Abljkffjbz24[address] [place] [phone]. Villa Yanes Monocytes/100 WBC (Bld) 6.4 % Normal 1.7-12.0 [facility] Comment on above: Performed By: #### C BC ####[facility] Zedtbqwbch[address] [place], [place] [address]Dr. Villa Yanes NEUT # 11.6 103/ul Critically high 1.4-6.5 [facility] Comment on above: Performed By: #### C BC ####[facility] Kaltzp[address] [place], [place] [address]Dr. Villa Yanes Neutrophils/100 WBC (Bld) 78.4 % Critically high 43.0-75.0 [facility] Comment on above: Performed By: #### C BC ####[facility] Ejeuqjqhla[address] [place], [place] [address]Dr. Villa Yanes Platelet mean volume (Bld) [Entitic vol] 9.2 fL Critically low 9.5-13.5 [facility] Comment on above: Performed By: #### C BC ####[facility] [address]mevxc[address] [place] [id number]. Villa Yanes PLT 368 103/ul Normal 150-450 [facility] Comment on above: Performed By: #### C BC ####[facility] Kgzdf[address]hkf[address] [place], [place] [address]Dr. Villa Joaquín RBC 4.29 106/ul Critically low 4.70-6.10 [facility] Comment on above: Performed By: #### C BC ####[facility] Dtgsybvzgs55[address] [place] [id number]. Villa Yanes WBC 14.8 103/ul Critically high 4.0-11.0 [facility] Comment on above: Performed By: #### C BC ####[facility] Lyvkmcumjr[address] [place] [id number]. Villa Yanes Cov[facility] PCR ([facility]on SARS-CoV-2 (COVID-19) RNA SHELLY+probe Ql (Unsp spec) Not detected Normal NOT DETECTED [facility] Comment on above: Result Comment: When diagnostic testing is negative, the possibility of a false negative should be considered inthe context of a patient's recent exposures and the presence of clinical signs and symptomsconsistent with SARS-CoV-2.This test is not yet approved or cleared by the [place] FDA. When there are no FDA-approved or cleared tests available, and other criteria are met, FDA can make tests available under an emergency access mechanism called an Emergency Use Authorization (EUA). The EUA for this test is supported by the [place] of Health and Human Service's declaration that circumstances exist to justify the emergency use of in vitro diagnostics for the detection and/or diagnosis of the virus that causes COVID-19. This EUA will remain in effect for the duration of the COVID-19 declaration justifying emergency of IVDs, unless it is terminated or revoked by the FDA (after which the test may no longer be used). Performed By: #### C VDTBH ####[facility] [address]xd[address] [place] [address]Dr. Villa Yanes FREE THYROXINE INDEX T7on FTI 2.55 Normal 1.30-4.50 [facility] Comment on above: Performed By: #### L IPA, TSH, CANDIE, T7, CMP ####[facility] Az[address]qer[address] [place], [place] [address]Dr. Villa Yanes T3U 38.0 % Normal 33.0-40.0 [facility] Comment on above: Performed By: #### L IPA, TSH, CANDIE, T7, CMP ####[facility] T[address]cscsjxv6[address] [place] [id number]. Villa Yanes T4 [Mass/Vol] 6.70 ug/dL Normal 4.50-12.10 [facility] Comment on above: Performed By: #### L IPA, TSH, CANDIE, T7, CMP ####[facility] Zmsxvcykwl0[address] [place], [place] [address]Dr. Villa Yanes INFLUENZA A AND B AGon 07-30 INFLUANEGH SEE BELOW Normal [facility] Comment on above: Result Comment: Nega tive for Flu A protein angiten. Infection due to Flu A cannot be ruled out. Flu A angiten in the sample may be below the detection limit of the test. Performed By: #### I NFLUAB ####[facility] X[address] [place] [address]. Villa Yanes INFLUBNEGH SEE BELOW Normal [facility] Comment on above: Result Comment: Nega tive for Flu B protein antigen. Infection due to Flu B cannot be ruled out. Flu B antigen in the sample may be below the detection limit of the test. Performed By: #### I NFLUAB ####[facility] Bgzznifmjq[address] [place], [place] [address]Dr. Villa [facility] INFLUENZA A AG Negative Normal NEGATIVE SEE COMMENT [facility] Comment on above: Performed By: #### I NFLUAB ####[facility] [address]px[address] [place] [address]. Villa Yanes INFLUENZA B AG Negative Normal NEGATIVE SEE COMMENT [facility] Comment on above: Performed By: #### I NFLUAB ####[facility] Snnsflhkoq[address] [place], [place] [address]Dr. Villa Yanes IRONon 07-30-2022 Iron [Mass/Vol] 44.0 ug/dL Critically low 65.0-175.0 [facility] Comment on above: Performed By: #### I JOSE ####[facility] Qfywtbqweh[address] [place], [place] [address]Dr. Villa Yanes LIPASEon 07-30-2022 Lipase [Catalytic activity/Vol] 44.0 U/L Critically low 73.0-393.0 [facility] Comment on above: Performed By: #### L IPA, TSH, CANDIE, T7, CMP ####[facility] [address]tkv[address] [place] [address]Dr. Villa Yanes PROF 14(COMP METB)on 023 Albumin [Mass/Vol] 3.3 g/dL Critically low 3.4-5.0 [facility] Comment on above: Performed By: #### L IPA, TSH, CANDIE, T7, CMP ####[facility] Nxmezqtyro90[address] [place], [place] [address]Dr. Villa Yanes Albumin/Globulin [Mass ratio] 0.9 {ratio} Normal [facility] Comment on above: Performed By: #### L IPA, TSH, CANDIE, T7, CMP ####[facility] Yimgzemdps23[address] [place], [place] [address]Dr. Villa Yanes ALP [Catalytic activity/Vol] 163 U/L Critically high 46-116 [facility] Comment on above: Performed By: #### L IPA, TSH, CANDIE, T7, CMP ####[facility] Jqazigz[address] [place], [place] [address]Dr. Villa Yanes ALT [Catalytic activity/Vol] 10 U/L Critically low 16-63 [facility] Comment on above: Performed By: #### L IPA, TSH, CANDIE, T7, CMP ####[facility] Imbgoqddcp[address] [place], [place] [address]Dr. Villa Yanes Anion gap [Moles/Vol] 13.1 mmol/L Normal [facility] Comment on above: Performed By: #### L IPA, TSH, CANDIE, T7, CMP ####[facility] Thibbiskcu93[address] [place], [place] [address]Dr. Villa Yanes AST [Catalytic activity/Vol] 12 U/L Critically low 15-37 [facility] Comment on above: Performed By: #### L IPA, TSH, CANDIE, T7, CMP ####[facility] Vauttfvdwa[address] [place], [place] [address]Dr. Villa Yanes Bilirubin [Mass/Vol] 0.4 mg/dL Normal 0.2-1.0 [facility] Comment on above: Performed By: #### L IPA, TSH, CANDIE, T7, CMP ####[facility] [address]ay[address] [place] [address]Dr. Villa Yanes Calcium [Mass/Vol] 9.8 mg/dL Normal 8.5-10.1 [facility] Comment on above: Performed By: #### L IPA, TSH, CANDIE, T7, CMP ####[facility] Tzedqurzjd[address] [place], [place] [address]Dr. Villa Yanes Chloride [Moles/Vol] 106 mmol/L Normal 98-107 [facility] Comment on above: Performed By: #### L IPA, TSH, CANDIE, T7, CMP ####[facility] Dbmbzrsfto06[address] [place], [place] [address]Dr. Villa Yanes CO2 [Moles/Vol] 27.3 mmol/L Normal 21.0-32.0 [facility] Comment on above: Performed By: #### L IPA, TSH, CANDIE, T7, CMP ####[facility] Mavechcjbf6[address] [place], [place] [address]Dr. Villa Yanes Creatinine [Mass/Vol] 1.23 mg/dL Normal 0.70-1.30 [facility] Comment on above: Performed By: #### L IPA, TSH, CANDIE, T7, CMP ####[facility] Ujirhhczmb[address] [place], [place] [address]Dr. Villa Yanes EGFR-AF CROATIAN >60 Normal >=60 [facility] Comment on above: Performed By: #### L IPA, TSH, CANDIE, T7, CMP ####[facility] Fvnhnikjgg[address] [place], [place] [address]Dr. Villa Yanes EGFR-NON AF CROATIAN 57 mL/min/1.73m2 Critically low >=60 [facility] Comment on above: Performed By: #### L IPA, TSH, CANDIE, T7, CMP ####[facility] Txtvrajitq[address] [place], [place] [address]Dr. Villa Yanes Globulin (S) [Mass/Vol] 3.7 g/dL Normal [facility] Comment on above: Performed By: #### L IPA, TSH, CANDIE, T7, CMP ####[facility] [address] [place] [address]Dr. Villa Yanes Glucose [Mass/Vol] 155 mg/dL Critically high 74-106 T [facility] Comment on above: Performed By: #### L IPA, TSH, CANDIE, T7, CMP ####[facility] Gmryfkgzjj[address] [place], [place] [address]Dr. Villa Yanes Potassium [Moles/Vol] 4.4 mmol/L Normal 3.5-5.1 [facility] Comment on above: Performed By: #### L IPA, TSH, CANDIE, T7, CMP ####[facility] Bievhmmbsi4[address] [place], [place] [address]Dr. Villa Yanes Protein [Mass/Vol] 7.0 g/dL Normal 6.4-8.2 [facility] Comment on above: Performed By: #### L IPA, TSH, CANDIE, T7, CMP ####[facility] Lfqxffxdmj04[address] [place], [place] [address]Dr. Villa Yanes Sodium [Moles/Vol] 142 mmol/L Normal 136-145 [facility] Comment on above: Performed By: #### L IPA, TSH, CANDIE, T7, CMP ####[facility] Mkfggdjpyh[address] [place], [place] [address]Dr. Villa Yanes Urea nitrogen [Mass/Vol] 25.0 mg/dL Critically high 7.0-18.0 [facility] Comment on above: Performed By: #### L IPA, TSH, CANDIE, T7, CMP ####[facility] Gnosgjongl[address] [place], [place] [address]Dr. Villa Yanes Urea nitrogen/Creatinine [Mass ratio] 20.3 mg/mg Normal [facility] Comment on above: Performed By: #### L IPA, TSH, CANDIE, T7, CMP ####[facility] Iminqlzuab5[address] [place], [place] [address]Dr. Villa Yanes TSHon 07-30-2022 TSH 0.259 uIU/mL Critically low 0.358-3.740 [facility] Comment on above: Performed By: #### L IPA, TSH, CANDIE, T7, CMP ####[facility] [address] [place] [address]Dr. Villa Joaquín XR CHEST 2 Von 07-30-2022 XR CHEST 2 V Normal [facility] CBC AUTO DIFFon 07-01-2022 BASO # 0.0 103/ul Normal 0.0-0.1 [facility] Comment on above: Performed By: #### C BC ####[facility] [address]fr[address] [place] [address]Dr. Villa Yanes Basophils/100 WBC (Bld) 0.1 % Critically low 0.2-2.0 [facility] Comment on above: Performed By: #### C BC ####[facility] I[address]wclpgcm[address] [place], [place] [address]Dr. Villa Yanes EO # 0.1 103/ul Normal 0.0-0.7 [facility] Comment on above: Performed By: #### C BC ####[facility] Hcovjjdfhn[address] [place], [place] [address]Dr. Villa Yanes Eosinophils/100 WBC (Bld) 0.5 % Critically low 0.9-7.0 [facility] Comment on above: Performed By: #### C BC ####[facility] Mwznrfzrmz8[address] [place], [place] [address]Dr. Villa Yanes Erythrocyte distribution width (RBC) [Ratio] 12.7 % Normal 11.0-15.0 [facility] Comment on above: Performed By: #### C BC ####[facility] Daqebyhlcp[address] [place], [place] [address]Dr. Villa Yanes Hematocrit (Bld) [Volume fraction] 37.6 % Critically low 42.0-54.0 [facility] Comment on above: Performed By: #### C BC ####[facility] Zfzoqgrwec[address] [place], [place] [address]Dr. Villa Yanes Hemoglobin (Bld) [Mass/Vol] 12.2 g/dL Critically low 14.0-18.0 [facility] Comment on above: Performed By: #### C BC ####[facility] V[address]vwyzurq[address] [place], [place] [address]Dr. Villa Yanes IG # 0.10 10e3/ul Critically high 0.00-0.03 [facility] Comment on above: Performed By: #### C BC ####[facility] [address]jx[address]vs[address] [place] [address]DrBrenden Villa Joaquín IG % 1.0 % Critically high 0.0-0.5 [facility] Comment on above: Performed By: #### C BC ####[facility] Az[address]dljie[address] [place] [address]DrBrenden Villa Joaquín LYMPH # 1.4 103/ul Normal 1.2-3.8 [facility] Comment on above: Performed By: #### C BC ####[facility] Udc[address]chfj[address] [place] [address]DrBrenden Yanes Lymphocytes/100 WBC (Bld) 13.5 % Critically low 20.5-60.0 [facility] Comment on above: Performed By: #### C BC ####[facility] Ulhcxkrcvz[address] [place], [place] [address]DrBrenden Brooklynkaren Yanes MANUAL DIFF REQ NO Normal [facility] Comment on above: Performed By: #### C BC ####[facility] [address] [place] [address]DrBrenden Villa Joaquín MCH (RBC) [Entitic mass] 32.7 pg Normal 25.9-34.0 [facility] Comment on above: Performed By: #### C BC ####[facility] T[address]mmiscav[address] [place] [address]DrBrenden Villa Joaquín MCHC (RBC) [Mass/Vol] 32.4 g/dL Normal 29.9-35.2 [facility] Comment on above: Performed By: #### C BC ####[facility] U[address]qmhwu14[address] [place] [address]DrBrenden Yanes MCV (RBC) [Entitic vol] 100.8 fL Critically high 80.0-94.0 [facility] Comment on above: Performed By: #### C BC ####[facility] Rwsvwqpyia[address] [place], [place] [address]DrBrenden Yanes MONO # 0.8 103/ul Normal 0.3-0.8 [facility] Comment on above: Performed By: #### C BC ####[facility] [address]fxfesuhy[address] [place] [address]Dr. Villa Yanes Monocytes/100 WBC (Bld) 7.9 % Normal 1.7-12.0 [facility] Comment on above: Performed By: #### C BC ####[facility] F[address]jbvjsgem[address] [place] [address]Dr. Villa Yanes NEUT # 7.9 103/ul Critically high 1.4-6.5 [facility] Comment on above: Performed By: #### C BC ####[facility] [address] [place] [address]Dr. Villa Yanes Neutrophils/100 WBC (Bld) 77.0 % Critically high 43.0-75.0 [facility] Comment on above: Performed By: #### C BC ####[facility] Uybiaiwrax[address] [place], [place] [address]Dr. Villa Yanes Platelet mean volume (Bld) [Entitic vol] 10.1 fL Normal 9.5-13.5 [facility] Comment on above: Performed By: #### C BC ####[facility] Kmnthislsp[address] [place], [place] [address]Dr. Villa Yanes PLT 196 103/ul Normal 150-450 [facility] Comment on above: Performed By: #### C BC ####[facility] Bzbxjmhtim[address] [place] [address]Dr. Villa Yanes RBC 3.73 106/ul Critically low 4.70-6.10 [facility] Comment on above: Performed By: #### C BC ####[facility] Auyecqimrv6[address] [place] [id number]. Villa Yanes WBC 10.3 103/ul Normal 4.0-11.0 [facility] Comment on above: Performed By: #### C BC ####[facility] Otljxdjxbn84[address] [place] [address]Dr. Villa Yanes CRPon 07-01-2022 CRP 0.8 mg/dL Normal <=1.0 [facility] Comment on above: Performed By: #### B MP, CRP ####[facility] [address]uxedqkydi[address] [place] [address]Dr. Villa Yanes PROF CHEM 8 (BAS METB)on Anion gap [Moles/Vol] 12.1 mmol/L Normal [facility] Comment on above: Performed By: #### B MP, CRP ####[facility] Fscivdjyfl[address] [place], [place] [address]Dr. Villa Yanes Calcium [Mass/Vol] 9.2 mg/dL Normal 8.5-10.1 [facility] Comment on above: Performed By: #### B MP, CRP ####[facility] Sxsnyxeijz90[address] [place], [place] [address]Dr. Villa Yanes Chloride [Moles/Vol] 105 mmol/L Normal 98-107 [facility] Comment on above: Performed By: #### B MP, CRP ####[facility] Lhocwwghcu[address] [place], [place] [address]Dr. Villa Yanes CO2 [Moles/Vol] 26.8 mmol/L Normal 21.0-32.0 [facility] Comment on above: Performed By: #### B MP, CRP ####[facility] Uggareesjh87[address] [place], [place] [address]Dr. Villa Yanes Creatinine [Mass/Vol] 1.11 mg/dL Normal 0.70-1.30 [facility] Comment on above: Performed By: #### B MP, CRP ####[facility] Wrjwhnvitz[address] [place], [place] [address]Dr. Villa Yanes EGFR-AF CROATIAN >60 Normal >=60 [facility] Comment on above: Performed By: #### B MP, CRP ####[facility] Nqbounhwui18[address] [place], [place] [address]Dr. Villa Yanes EGFR-NON AF CROATIAN >60 Normal >=60 [facility] Comment on above: Performed By: #### B MP, CRP ####[facility] Lcniiqxerw[address] [place], [place] [address]Dr. Villa Yanes Glucose [Mass/Vol] 136 mg/dL Critically high 74-106 T [facility] Comment on above: Performed By: #### B MP, CRP ####[facility] Dyhwdoofeq[address] [place], [place] [address]Dr. Villa Yanes Potassium [Moles/Vol] 3.9 mmol/L Normal 3.5-5.1 [facility] Comment on above: Performed By: #### B MP, CRP ####[facility] Rtrtfdvttq[address] [place], [place] [address]Dr. Villa Joaquín Sodium [Moles/Vol] 140 mmol/L Normal 136-145 [facility] Comment on above: Performed By: #### B MP, CRP ####[facility] Ikxiwrgtqa[address] [place], [place] [address]Dr. Villa Joaquín Urea nitrogen [Mass/Vol] 28.0 mg/dL Critically high 7.0-18.0 [facility] Comment on above: Performed By: #### B MP, CRP ####[facility] Bnuairohjc[address] [place], [place] [address]Dr. Vilal Joaquín Urea nitrogen/Creatinine [Mass ratio] 25.2 mg/mg Normal [facility] Comment on above: Performed By: #### B MP, CRP ####[facility] Jyzhzxmqsa[address] [place], [place] [address]Dr. Villa Joaquín SED RATE WESTERGRENon 2022 SED RATE 32 mm/hr Critically high <=20 [facility] Comment on above: Performed By: #### S EDR ####[facility] Uujoctctpx[address] [place], [place] [address]Dr. Villa Joaquín XR LSPINE 2_3 VIEWSon 2022 XR LSPINE 2_3 VIEWS Normal [facility] CBC AUTO DIFFon 06-29-2022 BASO # 0.0 103/ul Normal 0.0-0.1 [facility] Comment on above: Performed By: #### C BC ####[facility] Vgrcavhvpm9[address] [place], [place] [address]Dr. Villa Yanes Basophils/100 WBC (Bld) 0.1 % Critically low 0.2-2.0 [facility] Comment on above: Performed By: #### C BC ####[facility] T[address]olkj[address] [place] [address]DrBrenden Yanes EO # 0.0 103/ul Normal 0.0-0.7 [facility] Comment on above: Performed By: #### C BC ####[facility] Jalpbdkpdn[address] [place], [place] [address]DrBrenden Yanes Eosinophils/100 WBC (Bld) 0.0 % Critically low 0.9-7.0 [facility] Comment on above: Performed By: #### C BC ####[facility] Uxluccclgx10[address] [place], [place] [address]DrBrenden Yanes Erythrocyte distribution width (RBC) [Ratio] 12.6 % Normal 11.0-15.0 [facility] Comment on above: Performed By: #### C BC ####[facility] Inzcqcosmf5817[address] [place], [place] [address]DrBrenden Yanes Hematocrit (Bld) [Volume fraction] 31.6 % Critically low 42.0-54.0 [facility] Comment on above: Performed By: #### C BC ####[facility] Baeqzrobkm50[address] [place], [place] [address]DrBrenden Yanes Hemoglobin (Bld) [Mass/Vol] 10.1 g/dL Critically low 14.0-18.0 [facility] Comment on above: Performed By: #### C BC ####[facility] Vzboecizxy40[address] [place], [place] [address]DrBrenden Yanes IG # 0.10 10e3/ul Critically high 0.00-0.03 [facility] Comment on above: Performed By: #### C BC ####[facility] Apujhpnzmv39[address] [place], [place] [address]DrBrenden Yanes IG % 0.9 % Critically high 0.0-0.5 [facility] Comment on above: Performed By: #### C BC ####[facility] Kvkzjouyqs5[address] [place], [place] [address]DrBrenden Yanes LYMPH # 0.3 103/ul Critically low 1.2-3.8 [facility] Comment on above: Performed By: #### C BC ####[facility] Wxyhumtnou0[address] [place] [address]DrBrenden Yanes Lymphocytes/100 WBC (Bld) 2.5 % Critically low 20.5-60.0 [facility] Comment on above: Performed By: #### C BC ####[facility] Kxbdpblezh7212[address] [place], [place] [address]DrBrenden Yanes MANUAL DIFF REQ NO Normal [facility] Comment on above: Performed By: #### C BC ####[facility] Ewrehlnnuj0828[address] [place], [place] [address]DrBrenden Yanes MCH (RBC) [Entitic mass] 32.1 pg Normal 25.9-34.0 [facility] Comment on above: Performed By: #### C BC ####[facility] Lwanqluxpt2723[address] [place], [place] [address]DrBrenden Yanes MCHC (RBC) [Mass/Vol] 32.0 g/dL Normal 29.9-35.2 [facility] Comment on above: Performed By: #### C BC ####[facility] Bxsxmlitep708[address] [place], [place] [address]DrBrenden Yanes MCV (RBC) [Entitic vol] 100.3 fL Critically high 80.0-94.0 [facility] Comment on above: Performed By: #### C BC ####[facility] Zzexhfhmjz4742[address] [place], [place] [address]DrBrenden Yanes MONO # 0.2 103/ul Critically low 0.3-0.8 [facility] Comment on above: Performed By: #### C BC ####[facility] Dxpdqjewyg8277[address] [place], [place] [address]DrBrenden Yanes Monocytes/100 WBC (Bld) 1.8 % Normal 1.7-12.0 [facility] Comment on above: Performed By: #### C BC ####[facility] Bvxrwkaihz5966[address] [place], [place] [address]DrBrenden Yanes NEUT # 10.8 103/ul Critically high 1.4-6.5 [facility] Comment on above: Performed By: #### C BC ####[facility] Fuezhrosxu50[address] [place] [address]DrBrenden Yanes Neutrophils/100 WBC (Bld) 94.7 % Critically high 43.0-75.0 [facility] Comment on above: Performed By: #### C BC ####[facility] Dfcgwowedd3296 [place] [address]Dr. Villa Yanes Platelet mean volume (Bld) [Entitic vol] 10.1 fL Normal 9.5-13.5 [facility] Comment on above: Performed By: #### C BC ####[facility] Aepjrcazqx06[address] [place], [place] [address]DrBrenden Yanes PLT 200 103/ul Normal 150-450 [facility] Comment on above: Performed By: #### C BC ####[facility] Yxesudqocd2318[address] [place], [place] [address]DrBrenden Yanes RBC 3.15 106/ul Critically low 4.70-6.10 [facility] Comment on above: Performed By: #### C BC ####[facility] Xcrvgvftrx9[address] [place], [place] [address]DrBrenden Yanes WBC 11.4 103/ul Critically high 4.0-11.0 [facility] Comment on above: Performed By: #### C BC ####[facility] Vqqjobxzhg2767[address] [place], [place] [address]DrBrenden Yanes POINT OF CARE GLUCOSEon Glucose [Mass/Vol] 225 mg/dL Critically high 74-106 T [facility] Comment on above: Performed By: #### P OCGLUC ####[facility] Bwjdhtkzfd37[address] [place], [place] [address]DrBrenden Yanes PROF CHEM 8 (BAS METB)on Anion gap [Moles/Vol] 15.6 mmol/L Normal Th [facility] Comment on above: Performed By: #### B MP ####[facility] Wiowzkenjd923[address] [place], [place] [address]Dr. Villa Yanes Calcium [Mass/Vol] 8.6 mg/dL Normal 8.5-10.1 [facility] Comment on above: Performed By: #### B MP ####[facility] Teiphbyfxo35[address] [place] [address]Dr. Villa Yanes Chloride [Moles/Vol] 106 mmol/L Normal 98-107 [facility] Comment on above: Performed By: #### B MP ####[facility] Taizltjevz9[address] [place] [address]Dr. Villa Yanes CO2 [Moles/Vol] 22.6 mmol/L Normal 21.0-32.0 [facility] Comment on above: Performed By: #### B MP ####[facility] Ymosogibwg[address] [place] [address]Dr. Villa Yanes Creatinine [Mass/Vol] 1.39 mg/dL Critically high 0.70-1.30 [facility] Comment on above: Performed By: #### B MP ####[facility] Atcaetltzh59[address] [place] [address]Dr. Villa Yanes EGFR-AF CROATIAN 60 mL/min/1.73m2 Normal >=60 Th [facility] Comment on above: Performed By: #### B MP ####[facility] Fxouiepeye9109[address] [place], [place] [address]Dr. Villa Yanes EGFR-NON AF CROATIAN 49 mL/min/1.73m2 Critically low >=60 [facility] Comment on above: Performed By: #### B MP ####[facility] Wvzlpwooqs1899 [place] [address]Dr. Villa Yanes Glucose [Mass/Vol] 229 mg/dL Critically high 74-106 T [facility] Comment on above: Performed By: #### B MP ####[facility] Mqdnoezrwz6133 [place] [address]Dr. Villa Yanes Potassium [Moles/Vol] 4.2 mmol/L Normal 3.5-5.1 [facility] Comment on above: Performed By: #### B MP ####[facility] Bpfftobhfb2583 [place] [address]Dr. Villa Yanes Sodium [Moles/Vol] 140 mmol/L Normal 136-145 [facility] Comment on above: Performed By: #### B MP ####[facility] Vmvrsmfqbt23[address] [place], [place] [address]Dr. Villa Yanes Urea nitrogen [Mass/Vol] 47.0 mg/dL Critically high 7.0-18.0 [facility] Comment on above: Performed By: #### B MP ####[facility] Wcmvomyjvu978[address] [place], [place] [address]Dr. Villa Yanes Urea nitrogen/Creatinine [Mass ratio] 33.8 mg/mg Normal [facility] Comment on above: Performed By: #### B MP ####[facility] Cmtxobfcgk99[address] [place], [place] [address]Dr. Villa Yanes CBC AUTO DIFFon 06-28-2022 BASO # 0.0 103/ul Normal 0.0-0.1 [facility] Comment on above: Performed By: #### C BC ####[facility] Wzoyaxoqtf68[address] [place], [place] [address]Dr. Villa Joaquín Basophils/100 WBC (Bld) 0.1 % Critically low 0.2-2.0 [facility] Comment on above: Performed By: #### C BC ####[facility] Ejyhltzrvn6[address] [place], [place] [address]Dr. Villa Yanes EO # 0.0 103/ul Normal 0.0-0.7 [facility] Comment on above: Performed By: #### C BC ####[facility] Slxmkywxig9[address] [place], [place] [address]Dr. Villa Joaquín Eosinophils/100 WBC (Bld) 0.1 % Critically low 0.9-7.0 [facility] Comment on above: Performed By: #### C BC ####[facility] Qnarqqpydy060[address] [place], [place] [address]Dr. Villa Yanes Erythrocyte distribution width (RBC) [Ratio] 12.6 % Normal 11.0-15.0 [facility] Comment on above: Performed By: #### C BC ####[facility] Glblxrjidz93[address] [place] [address]Dr. Villa Yanes Hematocrit (Bld) [Volume fraction] 33.4 % Critically low 42.0-54.0 [facility] Comment on above: Performed By: #### C BC ####[facility] Bqhmlleshe1208 [place] [address]Dr. Villa Yanes Hemoglobin (Bld) [Mass/Vol] 10.5 g/dL Critically low 14.0-18.0 [facility] Comment on above: Performed By: #### C BC ####[facility] Rzspzdzxdz2588 [place] [address]Dr. Villa Yanes IG # 0.12 10e3/ul Critically high 0.00-0.03 [facility] Comment on above: Performed By: #### C BC ####[facility] Ghlpkbcikq8852[address] [place], [place] [address]Dr. Villa Yanes IG % 0.9 % Critically high 0.0-0.5 [facility] Comment on above: Performed By: #### C BC ####[facility] Xfkmuttcts0486 [place] [address]Dr. Villa Yanes LYMPH # 0.5 103/ul Critically low 1.2-3.8 [facility] Comment on above: Performed By: #### C BC ####[facility] Axstfcadhi2857 [place] [address]Dr. Villa Yanes Lymphocytes/100 WBC (Bld) 3.6 % Critically low 20.5-60.0 [facility] Comment on above: Performed By: #### C BC ####[facility] Vzzkswpmxf3814 [place] [address]Dr. Villa Yanes MANUAL DIFF REQ NO Normal [facility] Comment on above: Performed By: #### C BC ####[facility] Oacntkudqu5761[address] [place], [place] [address]Dr. Villa Yanes MCH (RBC) [Entitic mass] 31.4 pg Normal 25.9-34.0 [facility] Comment on above: Performed By: #### C BC ####[facility] Gtisqebxhi3184 [place] [id number]. Villa Yanes MCHC (RBC) [Mass/Vol] 31.4 g/dL Normal 29.9-35.2 [facility] Comment on above: Performed By: #### C BC ####[facility] Danbpdafru4370 [place] [phone]. Villa Yanes MCV (RBC) [Entitic vol] 100.0 fL Critically high 80.0-94.0 [facility] Comment on above: Performed By: #### C BC ####[facility] [address] [place], [place] [address]Dr. Villa Joaquín MONO # 0.2 103/ul Critically low 0.3-0.8 [facility] Comment on above: Performed By: #### C BC ####[facility] Okexuxzxqp80[address] [place], [place] [address]Dr. Villa Yanes Monocytes/100 WBC (Bld) 1.6 % Critically low 1.7-12.0 [facility] Comment on above: Performed By: #### C BC ####[facility] Bndmtkqwgj00[address] [place], [place] [address]Dr. Villa Yanes NEUT # 12.5 103/ul Critically high 1.4-6.5 [facility] Comment on above: Performed By: #### C BC ####[facility] Aqnfughmtl8[address] [place], [place] [address]Dr. Villa Yanes Neutrophils/100 WBC (Bld) 93.7 % Critically high 43.0-75.0 [facility] Comment on above: Performed By: #### C BC ####[facility] Enqpphslpp178[address] [place], [place] [address]Dr. Villa Yanes Platelet mean volume (Bld) [Entitic vol] 10.0 fL Normal 9.5-13.5 [facility] Comment on above: Performed By: #### C BC ####[facility] Jqrrryydyy[address] [place], [place] [address]Dr. Villa Yanes PLT 242 103/ul Normal 150-450 [facility] Comment on above: Performed By: #### C BC ####[facility] Rdnpwfwmkp8048 [place] [id number]. Brooklynkaren Yanes RBC 3.34 106/ul Critically low 4.70-6.10 [facility] Comment on above: Performed By: #### C BC ####[facility] Pjiacwchgw1514 [place] [phone]. Brooklynkaren Joaquín WBC 13.4 103/ul Critically high 4.0-11.0 [facility] Comment on above: Performed By: #### C BC ####[facility] Ywwgzktfjq1569 [place] [phone]. Villa Yanes POINT OF CARE GLUCOSEon Glucose [Mass/Vol] 238 mg/dL Critically high 74-106 [facility] Comment on above: Performed By: #### P OCGLUC ####[facility] Mfojrxqmsl0076 [place] [address]Dr. Villa Yanes Glucose [Mass/Vol] 202 mg/dL Critically high 74-106 [facility] Comment on above: Performed By: #### P OCGLUC ####[facility] Czupimqcla0410 [place] [address]Dr. Villa Yanes Glucose [Mass/Vol] 168 mg/dL Critically high 74-106 [facility] Comment on above: Performed By: #### P OCGLUC ####[facility] Tbyunlnmqj2942 [place] [address]Dr. Villa Yanes PROF CHEM 8 (BAS METB)on Anion gap [Moles/Vol] 11.5 mmol/L Normal [facility] Comment on above: Performed By: #### B MP ####[facility] Iggozirdzu9407 [place] [address]Dr. Villa Yanes Calcium [Mass/Vol] 8.9 mg/dL Normal 8.5-10.1 [facility] Comment on above: Performed By: #### B MP ####[facility] Ktgdmfqmnd6401 [place] [address]Dr. Villa Yanes Chloride [Moles/Vol] 106 mmol/L Normal 98-107 [facility] Comment on above: Performed By: #### B MP ####[facility] Uagcisaawa6281 [place] [id number]. Villa Yanes CO2 [Moles/Vol] 25.3 mmol/L Normal 21.0-32.0 [facility] Comment on above: Performed By: #### B MP ####[facility] Dnseomcytb6590 [place] [phone]. Villa Yanes Creatinine [Mass/Vol] 1.39 mg/dL Critically high 0.70-1.30 [facility] Comment on above: Performed By: #### B MP ####[facility] Oqtxhbqfps4024 [place] [phone]. Brooklynkaren Joaquín EGFR-AF CROATIAN 60 mL/min/1.73m2 Normal >=60 Th [facility] Comment on above: Performed By: #### B MP ####[facility] Blbsgiiwbm7152 [place] [address]Dr. Brooklynkaren Joaquín EGFR-NON AF CROATIAN 49 mL/min/1.73m2 Critically low >=60 [facility] Comment on above: Performed By: #### B MP ####[facility] Hfhcqiisia0094 [place] [address]Dr. Villa Joaquín Glucose [Mass/Vol] 191 mg/dL Critically high 74-106 [facility] Comment on above: Performed By: #### B MP ####[facility] Fnjivjsxmv4712 [place] [address]Dr. Villa Yanes Potassium [Moles/Vol] 4.8 mmol/L Normal 3.5-5.1 [facility] Comment on above: Performed By: #### B MP ####[facility] Goqindmdjn6[address] [place], [place] [address]Dr. Villa Yanes Sodium [Moles/Vol] 138 mmol/L Normal 136-145 [facility] Comment on above: Performed By: #### B MP ####[facility] Uacdwgckkw9612 [place] [address]Dr. Villa Yanes Urea nitrogen [Mass/Vol] 48.0 mg/dL Critically high 7.0-18.0 [facility] Comment on above: Performed By: #### B MP ####[facility] Qdffbbihgs74[address] [place], [place] [address]Dr. Villa Yanes Urea nitrogen/Creatinine [Mass ratio] 34.5 mg/mg Normal [facility] Comment on above: Performed By: #### B MP ####[facility] Bctlazjrnf95[address] [place], [place] [address]Dr. Villa Yanes XR CHEST 2 Von 06-28-2022 XR CHEST 2 V Normal [facility] CBC AUTO DIFFon 06-27-2022 BASO # 0.0 103/ul Normal 0.0-0.1 [facility] Comment on above: Performed By: #### C BC ####[facility] Biwmvkynzm3[address] [place], [place] [address]Dr. Vlila Yanes Basophils/100 WBC (Bld) 0.2 % Normal 0.2-2.0 [facility] Comment on above: Performed By: #### C BC ####[facility] Hgilzdnita0635[address] [place], [place] [address]Dr. Villa Yanes EO # 0.0 103/ul Normal 0.0-0.7 [facility] Comment on above: Performed By: #### C BC ####[facility] Gnsoajzdnh[address] [place], [place] [address]Dr. Villa Yanes Eosinophils/100 WBC (Bld) 0.0 % Critically low 0.9-7.0 [facility] Comment on above: Performed By: #### C BC ####[facility] Jzzzztradb468[address] [place], [place] [address]Dr. Villa Yanes Erythrocyte distribution width (RBC) [Ratio] 12.6 % Normal 11.0-15.0 [facility] Comment on above: Performed By: #### C BC ####[facility] Srjdkmhgem[address] [place], [place] [address]Dr. Villa Yanes Hematocrit (Bld) [Volume fraction] 33.9 % Critically low 42.0-54.0 [facility] Comment on above: Performed By: #### C BC ####[facility] Xbwuvsremy1216 [place] [address]Dr. Villa Yanes Hemoglobin (Bld) [Mass/Vol] 10.7 g/dL Critically low 14.0-18.0 [facility] Comment on above: Performed By: #### C BC ####[facility] Aadruuoxho7490 [place] [id number]. Villa Yanes IG # 0.08 10e3/ul Critically high 0.00-0.03 [facility] Comment on above: Performed By: #### C BC ####[facility] Eksxxxdick5855 [place] [address]Dr. Villa Yanes IG % 1.3 % Critically high 0.0-0.5 [facility] Comment on above: Performed By: #### C BC ####[facility] Ucyjbutqym9838 [place] [address]Dr. Villa Yanes LYMPH # 0.3 103/ul Critically low 1.2-3.8 [facility] Comment on above: Performed By: #### C BC ####[facility] Cwasbknoeo1606 [place] [address]Dr. Villa Yanes Lymphocytes/100 WBC (Bld) 5.1 % Critically low 20.5-60.0 [facility] Comment on above: Performed By: #### C BC ####[facility] Uhkldrzjuj3975 [place] [address]Dr. Villa Yanes MANUAL DIFF REQ NO Normal [facility] Comment on above: Performed By: #### C BC ####[facility] Njomdygagy3646 [place] [address]Dr. Villa Yanes MCH (RBC) [Entitic mass] 31.4 pg Normal 25.9-34.0 [facility] Comment on above: Performed By: #### C BC ####[facility] Kqibdlohff0934 [place] [address]Dr. Villa Yanes MCHC (RBC) [Mass/Vol] 31.6 g/dL Normal 29.9-35.2 [facility] Comment on above: Performed By: #### C BC ####[facility] Ibgreixvam2415 [place] [phone]. Villa Yanes MCV (RBC) [Entitic vol] 99.4 fL Critically high 80.0-94.0 [facility] Comment on above: Performed By: #### C BC ####[facility] Hfgiqmyzgi8014 [place] [address]Dr. Villa Yanes MONO # 0.0 103/ul Critically low 0.3-0.8 [facility] Comment on above: Performed By: #### C BC ####[facility] Jtgugehwty2204 [place] [address]Dr. Villa Yanes Monocytes/100 WBC (Bld) 0.7 % Critically low 1.7-12.0 [facility] Comment on above: Performed By: #### C BC ####[facility] Ncvnmdyhkm50[address] [place], [place] [address]Dr. Villa Yanes NEUT # 5.6 103/ul Normal 1.4-6.5 [facility] Comment on above: Performed By: #### C BC ####[facility] Pvsqqoxjmh5534[address] [place], [place] [address]Dr. Villa Yanes Neutrophils/100 WBC (Bld) 92.7 % Critically high 43.0-75.0 [facility] Comment on above: Performed By: #### C BC ####[facility] Ywtqfkyqvr9384[address] [place], [place] [address]Dr. Villa Yanes Platelet mean volume (Bld) [Entitic vol] 9.7 fL Normal 9.5-13.5 [facility] Comment on above: Performed By: #### C BC ####[facility] Zpnepcnghd[address] [place], [place] [address]Dr. Villa Joaquín PLT 221 103/ul Normal 150-450 [facility] Comment on above: Performed By: #### C BC ####[facility] Rjmihqdpvo66[address] [place], [place] [address]Dr. Brooklynkaren Joaquín RBC 3.41 106/ul Critically low 4.70-6.10 [facility] Comment on above: Performed By: #### C BC ####[facility] Nhyekdugrm3616 [place] [address]Dr. Villa Yanes WBC 6.1 103/ul Normal 4.0-11.0 [facility] Comment on above: Performed By: #### C BC ####[facility] Bxhqjeokyh44[address] [place], [place] [address]Dr. Villa Joaquín POINT OF CARE GLUCOSEon Glucose [Mass/Vol] 236 mg/dL Critically high 74-106 [facility] Comment on above: Performed By: #### P OCGLUC ####[facility] Fugvagxykr0021[address] [place], [place] [address]Dr. Villa Yanes Glucose [Mass/Vol] 156 mg/dL Critically high 74-106 [facility] Comment on above: Performed By: #### P OCGLUC ####[facility] Qvzpvuexsl1442[address] [place], [place] [address]Dr. Villa Yanes Glucose [Mass/Vol] 229 mg/dL Critically high -106 [facility] Comment on above: Performed By: #### P OCGLUC ####[facility] Wjshroraau2719[address] [place], [place] [address]Dr. Brooklynkaren Yanes PROF CHEM 8 (BAS METB)on Anion gap [Moles/Vol] 12.7 mmol/L Normal [facility] Comment on above: Performed By: #### B MP ####[facility] Nzddmihocr9717[address] [place], [place] [address]Dr. Villa Joaquín Calcium [Mass/Vol] 8.4 mg/dL Critically low 8.5-10.1 [facility] Comment on above: Performed By: #### B MP ####[facility] Smkntzfjua42[address] [place], [place] [address]Dr. Villa Joaquín Chloride [Moles/Vol] 103 mmol/L Normal 98-107 [facility] Comment on above: Performed By: #### B MP ####[facility] Wazpdvhgrm7[address] [place], [place] [address]Dr. Villa Yanes CO2 [Moles/Vol] 24.1 mmol/L Normal 21.0-32.0 [facility] Comment on above: Performed By: #### B MP ####[facility] Fdqokggoiu5340 [place] [phone]. Villa Yanes Creatinine [Mass/Vol] 1.34 mg/dL Critically high 0.70-1.30 [facility] Comment on above: Performed By: #### B MP ####[facility] Zrvfdpjhrb3916 [place] [id number]. Villa Joaquín EGFR-AF CROATIAN >60 Normal >=60 [facility] Comment on above: Performed By: #### B MP ####[facility] Qofmtlmgcm7188 [place] [address]Dr. Villa Joaquín EGFR-NON AF CROATIAN 51 mL/min/1.73m2 Critically low >=60 [facility] Comment on above: Performed By: #### B MP ####[facility] Bvezhkswyu94[address] [place], [place] [address]Dr. Villa Yanes Glucose [Mass/Vol] 249 mg/dL Critically high 74-106 T [facility] Comment on above: Performed By: #### B MP ####[facility] Ashzmzazeu1745 [place] [address]Dr. Villa Yanes Potassium [Moles/Vol] 4.8 mmol/L Normal 3.5-5.1 [facility] Comment on above: Performed By: #### B MP ####[facility] Btgilqyohy64[address] [place], [place] [address]Dr. Villa Yanes Sodium [Moles/Vol] 135 mmol/L Critically low 136-145 Th [facility] [facility] Comment on above: Performed By: #### B MP ####[facility] Xlojdgfnpq9433 [place] [address]Dr. Villa Yanes Urea nitrogen [Mass/Vol] 37.0 mg/dL Critically high 7.0-18.0 [facility] Comment on above: Performed By: #### B MP ####[facility] Znallzerss[address] [place], [place] [address]Dr. Villa Yanes Urea nitrogen/Creatinine [Mass ratio] 27.6 mg/mg Normal [facility] Comment on above: Performed By: #### B MP ####[facility] Iqfxyqvwdm45[address] [place] [address]Dr. Villa Joaquín T3, TOTAL (TRIIODOTHYRONINE) on 06-27-2022 T3, TOTAL 70 ng/dL Critically low 71-180 [facility] Comment on above: Performed By: #### T 3TOTAL ####[facility] Kqbxzpurec0818 [place] [address]Dr. Villa Joaquín CBC AUTO DIFFon 06-26-2022 BASO # 0.0 103/ul Normal 0.0-0.1 [facility] Comment on above: Performed By: #### C BC ####[facility] Ywdfrbspnr23[address] [place], [place] [address]Dr. Villa Yanes Basophils/100 WBC (Bld) 0.3 % Normal 0.2-2.0 [facility] Comment on above: Performed By: #### C BC ####[facility] Cxactynzxz35[address] [place], [place] [address]Dr. Villa Yanes EO # 0.1 103/ul Normal 0.0-0.7 [facility] Comment on above: Performed By: #### C BC ####[facility] Kvzgufkorg23[address] [place], [place] [address]Dr. Brooklynkaren Yanes Eosinophils/100 WBC (Bld) 0.4 % Critically low 0.9-7.0 [facility] Comment on above: Performed By: #### C BC ####[facility] Ulchhniwbs26[address] [place], [place] [address]Dr. Brooklynkaren Joaquín Erythrocyte distribution width (RBC) [Ratio] 12.3 % Normal 11.0-15.0 [facility] Comment on above: Performed By: #### C BC ####[facility] Emzvoourhj7[address] [place], [place] [address]Dr. Villa Yanes Hematocrit (Bld) [Volume fraction] 34.6 % Critically low 42.0-54.0 [facility] Comment on above: Performed By: #### C BC ####[facility] Vfxzvyanzz13[address] [place], [place] [address]Dr. Villa Yanes Hemoglobin (Bld) [Mass/Vol] 11.6 g/dL Critically low 14.0-18.0 [facility] Comment on above: Performed By: #### C BC ####[facility] Vafnupivib2437 [place] [address]DrBrenden Yanes IG # 0.13 10e3/ul Critically high 0.00-0.03 [facility] Comment on above: Performed By: #### C BC ####[facility] Ciuwzzncji0142 [place] [address]DrBrenden Yanes IG % 1.0 % Critically high 0.0-0.5 [facility] Comment on above: Performed By: #### C BC ####[facility] Vucwdzawla5111 [place] [address]DrBrenden Yanes LYMPH # 1.6 103/ul Normal 1.2-3.8 [facility] Comment on above: Performed By: #### C BC ####[facility] Kfczkwivkv7840 [place] [address]DrBrenden Yanes Lymphocytes/100 WBC (Bld) 11.9 % Critically low 20.5-60.0 [facility] Comment on above: Performed By: #### C BC ####[facility] Qjcxnbctqq3675 [place] [address]DrBrenden Yanes MANUAL DIFF REQ NO Normal [facility] Comment on above: Performed By: #### C BC ####[facility] Crgncwpquu6796 [place] [address]DrrBenden Yanes MCH (RBC) [Entitic mass] 32.3 pg Normal 25.9-34.0 [facility] Comment on above: Performed By: #### C BC ####[facility] Bkthelelap4642 [place] [id number] Yanes MCHC (RBC) [Mass/Vol] 33.5 g/dL Normal 29.9-35.2 [facility] Comment on above: Performed By: #### C BC ####[facility] Hmzeqjhjsu3589 [place] [id number] Yanes MCV (RBC) [Entitic vol] 96.4 fL Critically high 80.0-94.0 [facility] Comment on above: Performed By: #### C BC ####[facility] Mjlrkmjnvh0476 [place] [phone]. Villa Yanes MONO # 0.7 103/ul Normal 0.3-0.8 [facility] Comment on above: Performed By: #### C BC ####[facility] Nvepopyexd4496 [place] [phone]. Villa Joaquín Monocytes/100 WBC (Bld) 5.6 % Normal 1.7-12.0 [facility] Comment on above: Performed By: #### C BC ####[facility] Lhczerqpla9130 [place] [address]Dr. Villa Yanes NEUT # 10.5 103/ul Critically high 1.4-6.5 [facility] Comment on above: Performed By: #### C BC ####[facility] Wfiwgpgalg0333 [place] [address]Dr. Villa Yanes Neutrophils/100 WBC (Bld) 80.8 % Critically high 43.0-75.0 [facility] Comment on above: Performed By: #### C BC ####[facility] Shzytljdxz9255 [place] [address]Dr. Villa Joaquín Platelet mean volume (Bld) [Entitic vol] 9.1 fL Critically low 9.5-13.5 [facility] Comment on above: Performed By: #### C BC ####[facility] Zmzswrqfxz3382 [place] [phone]. Villa Joaquín PLT 266 103/ul Normal 150-450 [facility] Comment on above: Performed By: #### C BC ####[facility] Ogkudshkht2961 [place] [phone]. Villa Yanes RBC 3.59 106/ul Critically low 4.70-6.10 [facility] Comment on above: Performed By: #### C BC ####[facility] Jntxupdggt9680 [place] [phone]. Villa Yanes WBC 13.1 103/ul Critically high 4.0-11.0 [facility] Comment on above: Performed By: #### C BC ####[facility] Gsrmwepeql2002 [place] [address]Dr. Villa Yanes CULTURE URINEon 06-26-2022 CULTURE URINE Culture Observations : LIGHT GROWTH OF MIXED SKIN ARACELI. NO POTENTIAL PATHOGENS SEEN. Normal [facility] Comment on above: Performed By: #### U RCX ####[facility] Alvascaoel[address] [place], [place] [address]Dr. Villa Joaquín LACTATE/LACTIC ACIDon 2022 Lactate [Moles/Vol] 1.0 mmol/L Normal 0.4-1.9 [facility] Comment on above: Performed By: #### L ACT ####[facility] Cdmksetnqs7[address] [place], [place] [address]Dr. Villa Yanes POINT OF CARE GLUCOSEon Glucose [Mass/Vol] 242 mg/dL Critically high 74-106 [facility] Comment on above: Performed By: #### P OCGLUC ####[facility] Jabwvfldya774[address] [place], [place] [address]Dr. Villa Yanes Glucose [Mass/Vol] 140 mg/dL Critically high 74-106 [facility] Comment on above: Performed By: #### P OCGLUC ####[facility] Gfihgpsxqj59[address] [place], [place] [address]Dr. Villa Yanes PROF 14(COMP METB)on 023 Albumin [Mass/Vol] 3.0 g/dL Critically low 3.4-5.0 [facility] Comment on above: Performed By: #### C MP, T4, TSH ####[facility] Xnwzeobjwe2073 [place] [address]Dr. Villa Yanes Albumin/Globulin [Mass ratio] 0.9 {ratio} Normal [facility] Comment on above: Performed By: #### C MP, T4, TSH ####[facility] Wjnuvuwywo9989 [place] [address]Dr. Villa Yanes ALP [Catalytic activity/Vol] 175 U/L Critically high 46-116 [facility] Comment on above: Performed By: #### C MP, T4, TSH ####[facility] Xjajwthnrb7821 [place] [address]Dr. Villa Yanes ALT [Catalytic activity/Vol] 12 U/L Critically low 16-63 [facility] Comment on above: Performed By: #### C MP, T4, TSH ####[facility] Fhaomdczay5304 [place] [address]Dr. Villa Yanes Anion gap [Moles/Vol] 11.1 mmol/L Normal [facility] Comment on above: Performed By: #### C MP, T4, TSH ####[facility] Hsdsqiusut8926 [place] [address]Dr. Villa Yanes AST [Catalytic activity/Vol] 12 U/L Critically low 15-37 [facility] Comment on above: Performed By: #### C MP, T4, TSH ####[facility] Nwavtwrqlp12[address] [place], [place] [address]Dr. Villa Yanes Bilirubin [Mass/Vol] 0.5 mg/dL Normal 0.2-1.0 [facility] Comment on above: Performed By: #### C MP, T4, TSH ####[facility] Govwyiaxlx299[address] [place], [place] [address]Dr. Villa Yanes Calcium [Mass/Vol] 9.0 mg/dL Normal 8.5-10.1 [facility] Comment on above: Performed By: #### C MP, T4, TSH ####[facility] Rrvjgdzztl7[address] [place], [place] [address]Dr. Villa Yanes Chloride [Moles/Vol] 104 mmol/L Normal 98-107 [facility] Comment on above: Performed By: #### C MP, T4, TSH ####[facility] Mpjffytcdz24[address] [place], [place] [address]Dr. Villa Yanes CO2 [Moles/Vol] 28.2 mmol/L Normal 21.0-32.0 [facility] Comment on above: Performed By: #### C MP, T4, TSH ####[facility] Dezfaxgate60[address] [place], [place] [address]Dr. Villa Yanes Creatinine [Mass/Vol] 1.23 mg/dL Normal 0.70-1.30 [facility] Comment on above: Performed By: #### C MP, T4, TSH ####[facility] Atiaysrfim4[address] [place] [address]Dr. Villa Yanes EGFR-AF CROATIAN >60 Normal >=60 [facility] Comment on above: Performed By: #### C MP, T4, TSH ####[facility] Apmblfwply1726 [place] [address]Dr. Villa Yanes EGFR-NON AF CROATIAN 57 mL/min/1.73m2 Critically low >=60 [facility] Comment on above: Performed By: #### C MP, T4, TSH ####[facility] Mpnrlgwlpc4028 [place] [address]Dr. Villa Yanes Globulin (S) [Mass/Vol] 3.3 g/dL Normal [facility] Comment on above: Performed By: #### C MP, T4, TSH ####[facility] Ojdbvjrqjg5912 [place] [address]Dr. Villa Yanes Glucose [Mass/Vol] 122 mg/dL Critically high 74-106 [facility] Comment on above: Performed By: #### C MP, T4, TSH ####[facility] Hbjdyxntcu1864 [place] [address]Dr. Villa Yanes Potassium [Moles/Vol] 4.3 mmol/L Normal 3.5-5.1 [facility] Comment on above: Performed By: #### C MP, T4, TSH ####[facility] Exybltmyyh0349 [place] [address]Dr. Villa Yanes Protein [Mass/Vol] 6.3 g/dL Critically low 6.4-8.2 [facility] Comment on above: Performed By: #### C MP, T4, TSH ####[facility] Yhkzvvgwvr0512 [place] [address]Dr. Villa Yanes Sodium [Moles/Vol] 139 mmol/L Normal 136-145 [facility] Comment on above: Performed By: #### C MP, T4, TSH ####[facility] Knuaprgqwp2329 [place] [address]Dr. Villa Yanes Urea nitrogen [Mass/Vol] 29.0 mg/dL Critically high 7.0-18.0 [facility] Comment on above: Performed By: #### C MP, T4, TSH ####[facility] Xnkfuvaxmf3578 [place] [address]Dr. Villa Yanes Urea nitrogen/Creatinine [Mass ratio] 23.6 mg/mg Normal [facility] Comment on above: Performed By: #### C MP, T4, TSH ####[facility] Pvberbktpz6386 [place] [address]Dr. Villa Yanes T4on 06-26-2022 T4 [Mass/Vol] 5.80 ug/dL Normal 4.50-12.10 [facility] Comment on above: Performed By: #### C MP, T4, TSH ####[facility] Ynidoudvov4105 [place] [address]Dr. Villa Yanes TSHon 06-26-2022 TSH 0.281 uIU/mL Critically low 0.358-3.740 [facility] Comment on above: Performed By: #### C MP, T4, TSH ####[facility] Zmlybtored3033 [place] [address]Dr. Villa Yanes UA RANDOM W/MICROSCOPICon BACTERIA TRACE Abnormal NONE SEEN [facility] Comment on above: Performed By: #### U AMIC ####[facility] Eyieudkowh0692 [place] [address]Dr. Villa Yanes Bilirubin Ql (U) Negative Normal NEGATIVE [facility] Comment on above: Performed By: #### U AMIC ####[facility] Xhtegwaskf1425 [place] [address]Dr. Villa Yanes CAST NONE SEEN Normal NONE SEEN [facility] Comment on above: Performed By: #### U AMIC ####[facility] Ksdeeryqjc6927 [place] [address]Dr. Villa Yanes Clarity (U) CLEAR Normal CLEAR [facility] Comment on above: Performed By: #### U AMIC ####[facility] Ttiwricnav9387 [place] [phone]. Brooklynkaren Yanes Color (U) YELLOW Normal YELLOW [facility] Comment on above: Performed By: #### U AMIC ####[facility] Hxmdktrslq6723 [place] [phone]. Brooklynkaren Yanes Crystals LM Nom (Urine sed) NONE SEEN Normal NONE SEEN [facility] Comment on above: Performed By: #### U AMIC ####[facility] Lnczrzfgbm9[address] [place], [place] [address]Dr. Villa Joaquín Epithelial cells LM Ql (Urine sed) RARE Normal NONE SEEN /RARE [facility] Comment on above: Performed By: #### U AMIC ####[facility] Sjwofgissa44[address] [place], [place] [address]Dr. Villa Yanes Glucose Ql (U) Negative Normal NEGATIVE [facility] Comment on above: Performed By: #### U AMIC ####[facility] Gllyqmfrpq6844[address] [place], [place] [address]Dr. Villa Yanes Hemoglobin Ql (U) Negative Normal NEGATIVE [facility] Comment on above: Performed By: #### U AMIC ####[facility] Nsewlwhkhe99[address] [place], [place] [address]Dr. Villa Yanes Ketones Ql (U) Negative Normal NEGATIVE [facility] Comment on above: Performed By: #### U AMIC ####[facility] Jbgoywmpgj2761[address] [place], [place] [address]Dr. Yilan Yanes LEUKOCYTES Negative Normal NEGATIVE [facility] Comment on above: Performed By: #### U AMIC ####[facility] Hdbgzykque203[address] [place], [place] [address]Dr. Yilan Yanes MUCOUS NONE SEEN Normal NONE SEEN [facility] Comment on above: Performed By: #### U AMIC ####[facility] Kscsfcavsn36[address] [place], [place] [address]Dr. Yilan Yanes Nitrite Ql (U) Negative Normal NEGATIVE [facility] Comment on above: Performed By: #### U AMIC ####[facility] Ygtqvgltab3236[address] [place], [place] [address]Dr. Yilan Yanes pH (U) 5.5 [pH] Normal 5-9 [facility] Comment on above: Performed By: #### U AMIC ####[facility] Qqtzfwscfo7793 [place] [address]Dr. Villa Yanes RBC 0-2 Normal 0-2 [facility] Comment on above: Performed By: #### U AMIC ####[facility] Hqfldluquz3278 [place] [address]Dr. Villa Yanes SPEC GRAVITY 1.025 Normal 1.005-<=1.0 25 [facility] Comment on above: Performed By: #### U AMIC ####[facility] Fpynomoveu4435[address] [place], [place] [address]Dr. Villa Yanes UA PROTEIN 100 mg/dl Abnormal NEGATIVE/ TRACE [facility] Comment on above: Performed By: #### U AMIC ####[facility] Ecudxwuhxf3137[address] [place], [place] [address]Dr. Villa Yanes Urobilinogen Qn (U) 0.2 {Mackenzie'U}/dL Normal 0.2 - 1. 0 [facility] Comment on above: Performed By: #### U AMIC ####[facility] Zjdnjdafdf485[address] [place], [place] [address]Dr. Villa Yanes WBC NONE SEEN Normal NONE SEEN [facility] Comment on above: Performed By: #### U AMIC ####[facility] Uqldymbade8971[address] [place], [place] [address]Dr. Villa Yanes MRI LSPINE WO CONon 06-10-19 MRI LSPINE WO CON Normal [facility] CBC AUTO DIFFon 06-06-2022 BASO # 0.0 103/ul Normal 0.0-0.1 [facility] Comment on above: Performed By: #### C BC ####[facility] Xkmaylqqiw3086[address] [place], [place] [address]Dr. Brooklynkaren Yanes Basophils/100 WBC (Bld) 0.4 % Normal 0.2-2.0 [facility] Comment on above: Performed By: #### C BC ####[facility] Uetgpseyim2666 [place] [address]Dr. Villa Yanes EO # 0.1 103/ul Normal 0.0-0.7 [facility] Comment on above: Performed By: #### C BC ####[facility] Cyfhhjmpzb35[address] [place], [place] [address]Dr. Villa Yanes Eosinophils/100 WBC (Bld) 0.6 % Critically low 0.9-7.0 [facility] Comment on above: Performed By: #### C BC ####[facility] Mqsvrsdfmp399[address] [place], [place] [address]Dr. Villa Yanes Erythrocyte distribution width (RBC) [Ratio] 12.6 % Normal 11.0-15.0 [facility] Comment on above: Performed By: #### C BC ####[facility] Wcfgwqzsut6812[address] [place], [place] [address]Dr. Villa Yanes Hematocrit (Bld) [Volume fraction] 34.1 % Critically low 42.0-54.0 [facility] Comment on above: Performed By: #### C BC ####[facility] Qtxtutmiqb23[address] [place], [place] [address]Dr. Villa Yanes Hemoglobin (Bld) [Mass/Vol] 11.3 g/dL Critically low 14.0-18.0 [facility] Comment on above: Performed By: #### C BC ####[facility] Twpxxewxew9169[address] [place], [place] [address]Dr. Villa Yanes IG # 0.14 10e3/ul Critically high 0.00-0.03 [facility] Comment on above: Performed By: #### C BC ####[facility] Czrifsnlkz6[address] [place], [place] [address]Dr. Villa Yanes IG % 1.2 % Critically high 0.0-0.5 [facility] Comment on above: Performed By: #### C BC ####[facility] Imoddjdkao413[address] [place], [place] [address]Dr. Brooklynkaren Yanes LYMPH # 1.1 103/ul Critically low 1.2-3.8 [facility] Comment on above: Performed By: #### C BC ####[facility] Szznsjhdtp0822 [place] [phone]. Villa Yanes Lymphocytes/100 WBC (Bld) 9.8 % Critically low 20.5-60.0 [facility] Comment on above: Performed By: #### C BC ####[facility] Jwutkrciqv3629 [place] [phone]. Villa Joaquín MANUAL DIFF REQ NO Normal [facility] Comment on above: Performed By: #### C BC ####[facility] Lqsvqqrtcz5595 [place] [address]Dr. Villa Joaquín MCH (RBC) [Entitic mass] 31.9 pg Normal 25.9-34.0 [facility] Comment on above: Performed By: #### C BC ####[facility] Xqumigwnna1028 [place] [address]Dr. Villa Joaquín MCHC (RBC) [Mass/Vol] 33.1 g/dL Normal 29.9-35.2 [facility] Comment on above: Performed By: #### C BC ####[facility] Loeaywyljr0566 [place] [address]Dr. Villa Joaquín MCV (RBC) [Entitic vol] 96.3 fL Critically high 80.0-94.0 [facility] Comment on above: Performed By: #### C BC ####[facility] Lewzzfpini8559 [place] [address]Dr. Brooklynkaren Joaquín MONO # 0.8 103/ul Normal 0.3-0.8 [facility] Comment on above: Performed By: #### C BC ####[facility] Ualdlwlasp4840 [place] [address]Dr. Brooklynkraen Yanes Monocytes/100 WBC (Bld) 6.7 % Normal 1.7-12.0 [facility] Comment on above: Performed By: #### C BC ####[facility] Pokgslpxsb6967 [place] [address]Dr. Villa Yanes NEUT # 9.2 103/ul Critically high 1.4-6.5 [facility] Comment on above: Performed By: #### C BC ####[facility] Jcdnckcefy2387 [place] [phone]. Villa Yanes Neutrophils/100 WBC (Bld) 81.3 % Critically high 43.0-75.0 [facility] Comment on above: Performed By: #### C BC ####[facility] Ayycllezup3613 [place] [address]Dr. Villa Yanes Platelet mean volume (Bld) [Entitic vol] 9.2 fL Critically low 9.5-13.5 [facility] Comment on above: Performed By: #### C BC ####[facility] Gqfzbubmye2732 [place] [id number]. Villa Joaquín PLT 255 103/ul Normal 150-450 [facility] Comment on above: Performed By: #### C BC ####[facility] Qlxivjferq2519 [place] [address]Dr. Villa Joaquín RBC 3.54 106/ul Critically low 4.70-6.10 [facility] Comment on above: Performed By: #### C BC ####[facility] Aitminsnjy4961 [place] [phone]. Villa Joaquín WBC 11.3 103/ul Critically high 4.0-11.0 [facility] Comment on above: Performed By: #### C BC ####[facility] Ggksixctdq7831 [place] [phone]. Villa Yanes ER URINE PROFILEon 3 Bilirubin Ql (U) Negative Normal NEGATIVE [facility] Comment on above: Performed By: #### ANGELIA CAMARENARO ####[facility] Ffkjibvcsm7960 [place] [phone]. Brooklynkaren Yanes Clarity (U) CLEAR Normal CLEAR [facility] Comment on above: Performed By: #### ANGELIA CAMARENARO ####[facility] Firczunhez8403 [place] [phone]. Villa Yanes Color (U) LT. YELLOW Normal YELLOW [facility] Comment on above: Performed By: #### ANGELIA CAMARENARO ####[facility] Xzxcmpmneh4252 [place] [phone]. Villa PENG A micrscopic examina tion will be performed if indicated. Normal [facility] Comment on above: Performed By: #### ROBERTO CARLOS CAMARENA ####[facility] Ivkuldeeqv6385 [place] [address]Dr. Villa Yanes Glucose Ql (U) Negative Normal NEGATIVE [facility] Comment on above: Performed By: #### ANGELIA CAMARENARO ####[facility] Bgtqjdattc9065 [place] [address]Dr. Villa Yanes Hemoglobin Ql (U) Negative Normal NEGATIVE [facility] Comment on above: Performed By: #### ANGELIA CAMARENARO ####[facility] Deylqjuxwm32[address] [place], [place] [address]Dr. Villa Yanes Ketones Ql (U) Negative Normal NEGATIVE [facility] Comment on above: Performed By: #### ANGELIA CAMARENARO ####[facility] Ntzdiauhzy[address] [place], [place] [address]Dr. Villa Yanes LEUKOCYTES Negative Normal NEGATIVE [facility] Comment on above: Performed By: #### ANGELIA CAMARENARO ####[facility] Gvvvloabwi725[address] [place], [place] [address]Dr. Villa Yanes Nitrite Ql (U) Negative Normal NEGATIVE [facility] Comment on above: Performed By: #### ANGELIA CAMARENARO ####[facility] Aolqwkgfwp540[address] [place], [place] [address]Dr. Villa Yanes pH (U) 5.5 [pH] Normal 5-9 [facility] Comment on above: Performed By: #### ANGELIA CAMARENARO ####[facility] Prpqkeoutq2492 [place] [address]Dr. Villa Yanes Protein (U) [Mass/Vol] 300 mg/dL Abnormal NEGATIVE/ TRACE [facility] Comment on above: Performed By: #### ANGELIA CAMARENARO ####[facility] Lpgqjausxc9083 [place] [address]Dr. Villa Yanes SPEC GRAVITY 1.025 Normal 1.005-<=1.0 25 [facility] Comment on above: Performed By: #### ROBERTO CARLOS CAMARENA ####[facility] Bxljehmjrz1405 [place] [address]Dr. Villa Yanes UR MICRO IND INDICATED Normal [facility] Comment on above: Performed By: #### ROBERTO CARLOS CAMARENA ####[facility] Gadakoiguq9644 [place] [address]Dr. Villa Yanes Urobilinogen Qn (U) 0.2 {Mackenzie'U}/dL Normal 0.2 - 1. 0 [facility] Comment on above: Performed By: #### ROBERTO CARLOS CAMARENA ####[facility] Rthoxgwzwy1420 [place] [address]DrBrenden Yanes PROF 14(COMP METB)on 023 Albumin [Mass/Vol] 2.7 g/dL Critically low 3.4-5.0 [facility] Comment on above: Performed By: #### C MP ####[facility] Jebnoigkab[address] [place], [place] [address]Dr. Villa Yanes Albumin/Globulin [Mass ratio] 0.8 {ratio} Normal [facility] Comment on above: Performed By: #### C MP ####[facility] Aygfpmppuo[address] [place], [place] [address]Dr. Villa Yanes ALP [Catalytic activity/Vol] 206 U/L Critically high 46-116 [facility] Comment on above: Performed By: #### C MP ####[facility] Wuijjdvudf[address] [place], [place] [address]DrBrenden Yanes ALT [Catalytic activity/Vol] 8 U/L Critically low 16-63 [facility] [facility] Comment on above: Performed By: #### C MP ####[facility] O[address] [place], [place] [address]DrBrenden Yanes Anion gap [Moles/Vol] 12.4 mmol/L Normal [facility] Comment on above: Performed By: #### C MP ####[facility] Ivjsrjjcve[address] [place], [place] [address]Dr. Villa Yanes AST [Catalytic activity/Vol] 9 U/L Critically low 15-37 [facility] Comment on above: Performed By: #### C MP ####[facility] [address]wvxf[address] [place] [address]Dr. Villa Yanes Bilirubin [Mass/Vol] 0.2 mg/dL Normal 0.2-1.0 [facility] Comment on above: Performed By: #### C MP ####[facility] Gprmsqeqlh[address] [place], [place] [address]Dr. Villa Joaquín Calcium [Mass/Vol] 8.9 mg/dL Normal 8.5-10.1 [facility] Comment on above: Performed By: #### C MP ####[facility] Ualnzybhcd23[address] [place], [place] [address]Dr. Brooklynkaren Joaquín Chloride [Moles/Vol] 106 mmol/L Normal 98-107 [facility] Comment on above: Performed By: #### C MP ####[facility] Mhowsbrszt[address] [place], [place] [address]Dr. Villa Joaquín CO2 [Moles/Vol] 27.4 mmol/L Normal 21.0-32.0 [facility] Comment on above: Performed By: #### C MP ####[facility] Fsnwdqcsxo[address] [place], [place] [address]Dr. Villa Joaquín Creatinine [Mass/Vol] 1.26 mg/dL Normal 0.70-1.30 [facility] Comment on above: Performed By: #### C MP ####[facility] Ykpuenoupk[address] [place], [place] [address]Dr. Brooklynkaren Joaquín EGFR-AF CROATIAN >60 Normal >=60 [facility] Comment on above: Performed By: #### C MP ####[facility] Bzrzazvehz[address] [place], [place] [address]Dr. Villa Yanes EGFR-NON AF CROATIAN 55 mL/min/1.73m2 Critically low >=60 [facility] Comment on above: Performed By: #### C MP ####[facility] Jirfqdxnnr[address] [place], [place] [address]Dr. Villa Yanes Globulin (S) [Mass/Vol] 3.5 g/dL Normal [facility] Comment on above: Performed By: #### C MP ####[facility] Rfawwsijqo[address] [place] [id number]. Villa Yanes Glucose [Mass/Vol] 125 mg/dL Critically high 74-106 T [facility] Comment on above: Performed By: #### C MP ####[facility] Enfpjmbmmo8[address] [place] [phone]. Villa Yanes Potassium [Moles/Vol] 3.8 mmol/L Normal 3.5-5.1 [facility] Comment on above: Performed By: #### C MP ####[facility] Kmjbhovmue[address] [place] [address]Dr. Villa Yanes Protein [Mass/Vol] 6.2 g/dL Critically low 6.4-8.2 Th [facility] Comment on above: Performed By: #### C MP ####[facility] Dwpszogawv99[address] [place], [place] [address]Dr. Villa Yanes Sodium [Moles/Vol] 142 mmol/L Normal 136-145 [facility] Comment on above: Performed By: #### C MP ####[facility] Jqfpqoclyu[address] [place], [place] [address]Dr. Villa Yanes Urea nitrogen [Mass/Vol] 30.0 mg/dL Critically high 7.0-18.0 [facility] Comment on above: Performed By: #### C MP ####[facility] Zhjfuhizuz4[address] [place], [place] [address]Dr. Villa Yanes Urea nitrogen/Creatinine [Mass ratio] 23.8 mg/mg Normal [facility] Comment on above: Performed By: #### C MP ####[facility] Vcijssttil78[address] [place] [phone]. Villa Joaquín URINE MICROSCOPIC ONLYon BACTERIA NONE SEEN Normal NONE SEEN [facility] Comment on above: Performed By: #### E ROBERTO CARLOS DAWN ####[facility] Wofquflfer24[address] [place] [phone]. Villa Joaquín Bacteria identified Cx Nom (U) NOT INDICATED Normal [facility] Comment on above: Performed By: #### Riddhi DAWN UMICRO ####[facility] Rqadjrhxli[address] [place] [address]Dr. Villa Yanes CAST SEEN Abnormal NONE SEEN [facility] Comment on above: Performed By: #### Riddhi DAWN UMICRO ####[facility] Etuwtfdelf[address] [place] [address]Dr. Villa Yanes Crystals LM Nom (Urine sed) NONE SEEN Normal NONE SEEN [facility] Comment on above: Performed By: #### Riddhi DAWN UMICRO ####[facility] Vasaetfahn[address] [place] [address]Dr. Villa Yanes Epithelial cells LM Ql (Urine sed) NONE SEEN Normal NONE SEEN /RARE [facility] Comment on above: Performed By: #### Riddhi DAWN UMICRO ####[facility] Esfeshjiir[address] [place], [place] [address]Dr. Villa Yanes MUCOUS NONE SEEN Normal NONE SEEN [facility] Comment on above: Performed By: #### Riddhi DAWN UMICRO ####[facility] Gcwmisrwhc[address] [place], [place] [address]Dr. Villa Yanes RBC NONE SEEN Abnormal 0-2 [facility] Comment on above: Performed By: #### Riddhi DAWN UMICRO ####[facility] Vjjcljfhnr44[address] [place] [address]Dr. Villa Yanes WBC 0-2 Abnormal NONE SEEN [facility] Comment on above: Performed By: #### Riddhi DAWN UMICRO ####[facility] Fvuqggtxvy[address] [place], [place] [address]Dr. Villa Yanes WBC CELLULAR CAST RARE Normal [facility] Comment on above: Performed By: #### Riddhi DAWN UMICRO ####[facility] Mtjkisbtiu[address] [place], [place] [address]Dr. Villa Yanes XR SACRUM_COCCYXon XR SACRUM_COCCYX Normal [facility] BNPon 05-08-2022 Natriuretic peptide B (Bld) [Mass/Vol] 2957.0 pg/mL Critically high <=1,800.0 [facility] Comment on above: Performed By: #### T SH, BNP, CMADM, CMP, T7 ####[facility] Ytljojdcgc40[address] [place] [address]Dr. Villa Yanes CARDIAC ANAMARIA ADMITon 022 CK [Catalytic activity/Vol] 88 U/L Normal 39-308 [facility] Comment on above: Performed By: #### T SH, BNP, CMADM, CMP, T7 ####[facility] Jztiyhrtcp24[address] [place] [address]Dr. Villa Yanes CK.MB [Mass/Vol] 2.75 ng/mL Normal <=3.60 [facility] Comment on above: Performed By: #### T SH, BNP, CMADM, CMP, T7 ####[facility] Pfdhiymbsz[address] [place], [place] [address]Dr. Villa Yanes HSTROP 10.4 pg/mL Normal 4.0-76.1 [facility] Comment on above: Result Comment: CUT- OFF POINTS HAVE BEEN ESTABLISHED BASED ON THE FOURTH UNIVERSAL DEFINITIONS OF MYOCARDIALINFARCTION. THE UPPER REFERENCE LIMIT (URL) OF TROPONIN, DEFINED THE 99TH PERCENTILE OFcTnI DISTRIBUTION IN A REFERENCE POPULATION, HAS BEEN CONFIRMED THE DECISION THRESHOLDFOR CA DIAGNOSIS. Performed By: #### T SH, BNP, CMADM, CMP, T7 ####[facility] Uwotnsiher[address] [place] [address]Dr. Villa Yanes JULIA 109 ng/mL Critically high 16- [facility] Comment on above: Performed By: #### T SH, BNP, CMADM, CMP, T7 ####[facility] Dlqfscfgnz6934 [place] [address]Dr. Villa Yanes CBC AUTO DIFFon 05-08-2022 BASO # 0.0 103/ul Normal 0.0-0.1 [facility] Comment on above: Performed By: #### C BC ####[facility] Rfauatgbhq7[address] [place], [place] [address]Dr. Villa Yanes Basophils/100 WBC (Bld) 0.2 % Normal 0.2-2.0 [facility] Comment on above: Performed By: #### C BC ####[facility] Fdplizyswe5541 [place] [phone] Villa Yanes EO # 0.0 103/ul Normal 0.0-0.7 [facility] Comment on above: Performed By: #### C BC ####[facility] Pildxlvcdn64[address] [place], [place] [address]DrBrenden Brooklynkaren Yanes Eosinophils/100 WBC (Bld) 0.0 % Critically low 0.9-7.0 [facility] Comment on above: Performed By: #### C BC ####[facility] Wzepwokszf[address] [place], [place] [address]Dr. Brooklynkaren Yanes Erythrocyte distribution width (RBC) [Ratio] 12.5 % Normal 11.0-15.0 [facility] Comment on above: Performed By: #### C BC ####[facility] Uuxhkiyhbx[address] [place], [place] [address]Dr. Villa Yanes Hematocrit (Bld) [Volume fraction] 30.0 % Critically low 42.0-54.0 [facility] Comment on above: Performed By: #### C BC ####[facility] Yylxcgdcjy7[address] [place], [place] [address]Dr. Villa Joaquín Hemoglobin (Bld) [Mass/Vol] 9.9 g/dL Critically low 14.0-18.0 [facility] Comment on above: Performed By: #### C BC ####[facility] Urwperdsvh[address] [place], [place] [address]Dr. Brooklynkaren Yanes IG # 0.13 10e3/ul Critically high 0.00-0.03 [facility] Comment on above: Performed By: #### C BC ####[facility] Qgaohvgxqu[address] [place], [place] [address]DrBrenden Yanes IG % 0.9 % Critically high 0.0-0.5 [facility] Comment on above: Performed By: #### C BC ####[facility] Sfdqyinzes12[address] [place], [place] [address]DrBrenden Yanes LYMPH # 0.8 103/ul Critically low 1.2-3.8 [facility] Comment on above: Performed By: #### C BC ####[facility] Aftqwwolqg[address] [place] [address]DrBrenden Yanes Lymphocytes/100 WBC (Bld) 5.7 % Critically low 20.5-60.0 [facility] Comment on above: Performed By: #### C BC ####[facility] Chmqgfsvxo32[address] [place] [address]DrBrenden Yanes MANUAL DIFF REQ NO Normal [facility] Comment on above: Performed By: #### C BC ####[facility] Iqyjsqtnqw5277 [place] [phone] Yanes MCH (RBC) [Entitic mass] 32.1 pg Normal 25.9-34.0 [facility] Comment on above: Performed By: #### C BC ####[facility] Wcvdksvwcs[address] [place], [place] [address]DrBrenden Yanes MCHC (RBC) [Mass/Vol] 33.0 g/dL Normal 29.9-35.2 [facility] Comment on above: Performed By: #### C BC ####[facility] Waqitbdwfd02[address] [place], [place] [address]DrBrenden Yanes MCV (RBC) [Entitic vol] 97.4 fL Critically high 80.0-94.0 [facility] Comment on above: Performed By: #### C BC ####[facility] Pnegbvtpcq[address] [place], [place] [address]DrBrenden Yanes MONO # 0.5 103/ul Normal 0.3-0.8 [facility] Comment on above: Performed By: #### C BC ####[facility] Pqyabpegzw[address] [place], [place] [address]DrBrenden Yanes Monocytes/100 WBC (Bld) 3.4 % Normal 1.7-12.0 [facility] Comment on above: Performed By: #### C BC ####[facility] Hhdjelskls[address] [place], [place] [address]DrBrenden Yanes NEUT # 13.1 103/ul Critically high 1.4-6.5 [facility] Comment on above: Performed By: #### C BC ####[facility] Zrufjhjuor[address] [place] [address]Dr. Villa Yanes Neutrophils/100 WBC (Bld) 89.8 % Critically high 43.0-75.0 [facility] Comment on above: Performed By: #### C BC ####[facility] Pumxmmpzbf17[address] [place] [address]Dr. Villa Yanes Platelet mean volume (Bld) [Entitic vol] 9.9 fL Normal 9.5-13.5 [facility] Comment on above: Performed By: #### C BC ####[facility] Vwccvagsqg[address] [place] [address]Dr. Villa Joaquín PLT 281 103/ul Normal 150-450 [facility] Comment on above: Performed By: #### C BC ####[facility] Ofsvfxwkwy7[address] [place] [address]Dr. Villa Joaquín RBC 3.08 106/ul Critically low 4.70-6.10 [facility] Comment on above: Performed By: #### C BC ####[facility] Wzggeyemuj[address] [place], [place] [address]Dr. Villa Joaquín WBC 14.6 103/ul Critically high 4.0-11.0 [facility] Comment on above: Performed By: #### C BC ####[facility] Mhczdpsodr3615 [place] [id number]. Villa Joaquín FREE THYROXINE INDEX T7on FTI 1.87 Normal 1.30-4.50 [facility] Comment on above: Performed By: #### T SH, BNP, CMADM, CMP, T7 ####[facility] Hqanwqvczb55[address] [place] [phone]. Villa Yanes T3U 39.0 % Normal 33.0-40.0 [facility] Comment on above: Performed By: #### T SH, BNP, CMADM, CMP, T7 ####[facility] Xtbxzupykb7860 [place] [phone]. Villa Yanes T4 [Mass/Vol] 4.80 ug/dL Normal 4.50-12.10 [facility] Comment on above: Performed By: #### T SH, BNP, CMADM, CMP, T7 ####[facility] [address]pjyodbqog[address] [place] [address]Dr. Villa Yanes IRONon 05-08-2022 Iron [Mass/Vol] 96.0 ug/dL Normal 65.0-175.0 [facility] Comment on above: Performed By: #### I JOSE ####[facility] Ksjogctojt[address] [place] [address]Dr. Villa Yanes PROF 14(COMP METB)on 022 Albumin [Mass/Vol] 2.8 g/dL Critically low 3.4-5.0 [facility] Comment on above: Performed By: #### T SH, BNP, CMADM, CMP, T7 ####[facility] Hmjnshqzig[address] [place] [address]Dr. Villa Yanes Albumin/Globulin [Mass ratio] 0.7 {ratio} Normal [facility] Comment on above: Performed By: #### T SH, BNP, CMADM, CMP, T7 ####[facility] Hppysrmvci[address] [place] [address]Dr. Villa Yanes ALP [Catalytic activity/Vol] 231 U/L Critically high 46-116 [facility] Comment on above: Performed By: #### T SH, BNP, CMADM, CMP, T7 ####[facility] Haqtlupmiz[address] [place] [address]Dr. Villa Yanes ALT [Catalytic activity/Vol] 13 U/L Critically low 16-63 [facility] Comment on above: Performed By: #### T SH, BNP, CMADM, CMP, T7 ####[facility] Mntnsywmvh0119 [place] [address]Dr. Villa Yanes Anion gap [Moles/Vol] 13.1 mmol/L Normal [facility] Comment on above: Performed By: #### T SH, BNP, CMADM, CMP, T7 ####[facility] Qaqmgjpphs7969 [place] [address]Dr. Villa Yanes AST [Catalytic activity/Vol] 14 U/L Critically low 15-37 [facility] Comment on above: Performed By: #### T SH, BNP, CMADM, CMP, T7 ####[facility] Yhejpesids[address] [place] [address]Dr. Villa Yanes Bilirubin [Mass/Vol] 0.2 mg/dL Normal 0.2-1.0 [facility] Comment on above: Performed By: #### T SH, BNP, CMADM, CMP, T7 ####[facility] Culoxvdkux39[address] [place] [address]Dr. Villa Yanes Calcium [Mass/Vol] 8.7 mg/dL Normal 8.5-10.1 [facility] Comment on above: Performed By: #### T SH, BNP, CMADM, CMP, T7 ####[facility] Eacvkeqymw69[address] [place] [address]Dr. Villa Yanes Chloride [Moles/Vol] 107 mmol/L Normal 98-107 [facility] Comment on above: Performed By: #### T SH, BNP, CMADM, CMP, T7 ####[facility] Yewlduhoxh20[address] [place] [address]Dr. Villa Yanes CO2 [Moles/Vol] 26.3 mmol/L Normal 21.0-32.0 [facility] Comment on above: Performed By: #### T SH, BNP, CMADM, CMP, T7 ####[facility] Pjmmaldoyq45[address] [place] [address]Dr. Villa Yanes Creatinine [Mass/Vol] 1.42 mg/dL Critically high 0.70-1.30 [facility] Comment on above: Performed By: #### T SH, BNP, CMADM, CMP, T7 ####[facility] Nbkweburch[address] [place] [address]Dr. Villa Yanes EGFR-AF CROATIAN 58 mL/min/1.73m2 Critically low >=60 [facility] Comment on above: Performed By: #### T SH, BNP, CMADM, CMP, T7 ####[facility] Xscocmzqem5[address] [place] [address]Dr. Villa Yanes EGFR-NON AF CROATIAN 48 mL/min/1.73m2 Critically low >=60 [facility] Comment on above: Performed By: #### T SH, BNP, CMADM, CMP, T7 ####[facility] Tkizijfonm[address]152 [place] [address]Dr. Villa Yanes Globulin (S) [Mass/Vol] 3.8 g/dL Normal [facility] Comment on above: Performed By: #### T SH, BNP, CMADM, CMP, T7 ####[facility] Abpzleelqw98[address] [place] [address]Dr. Villa Yanes Glucose [Mass/Vol] 144 mg/dL Critically high 74-106 [facility] Comment on above: Performed By: #### T SH, BNP, CMADM, CMP, T7 ####[facility] Lxaefvkftu6[address] [place] [address]Dr. Villa Yanes Potassium [Moles/Vol] 4.4 mmol/L Normal 3.5-5.1 [facility] Comment on above: Performed By: #### T SH, BNP, CMADM, CMP, T7 ####[facility] Nuvbdlaktp55[address] [place] [address]Dr. Villa Yanes Protein [Mass/Vol] 6.6 g/dL Normal 6.4-8.2 [facility] Comment on above: Performed By: #### T SH, BNP, CMADM, CMP, T7 ####[facility] Velvhrbqrd3936 [place] [address]Dr. Villa Yanes Sodium [Moles/Vol] 142 mmol/L Normal 136-145 [facility] Comment on above: Performed By: #### T SH, BNP, CMADM, CMP, T7 ####[facility] Cidtjowxxe18[address] [place] [address]Dr. Villa Yanes Urea nitrogen [Mass/Vol] 49.0 mg/dL Critically high 7.0-18.0 [facility] Comment on above: Performed By: #### T SH, BNP, CMADM, CMP, T7 ####[facility] Eywjmmgevq7313 [place] [address]Dr. Villa Yanes Urea nitrogen/Creatinine [Mass ratio] 34.5 mg/mg Normal [facility] Comment on above: Performed By: #### T SH, BNP, CMADM, CMP, T7 ####[facility] Ehgcdxzejz4362 [place] [address]Dr. Villa Yanes TSHon 05-08-2022 TSH 0.099 uIU/mL Critically low 0.358-3.740 [facility] Comment on above: Performed By: #### T SH, BNP, CMADM, CMP, T7 ####[facility] Uitfwtzfhi05[address] [place] [address]Dr. Brooklynkaren Yanes XR SACRUM_COCCYXon 2 XR SACRUM_COCCYX Normal [facility] GLYCOHEMOGLOBIN A1Con 2021 ADA RECOMMENDATION SEE BELOW Normal [facility] Comment on above: Result Comment: ADA RECOMMENDED LIMIT 4.0 - 6.0 ADA THERAPEUTIC TARGET < 7.0 ACTION SUGGESTED > 7.0 Performed By: #### A 1C ####[facility] Yx[address]vqmpwyh[address] [place], [place] [address]Dr. Villa Joaquín Glucose [Mass/Vol] 140 mg/dL Normal [facility] Comment on above: Performed By: #### A 1C ####[facility] Edugzbfarz8947 [place] [address]Dr. Villa Joaquín HbA1c (Bld) [Mass fraction] 6.5 % Critically high 4.5-6.2 [facility] Comment on above: Performed By: #### A 1C ####[facility] Zzeqfkolzn8262 [place] [address]Dr. Villa Joaquín CBC AUTO DIFFon 04-03-2022 BASO # 0.1 103/ul Normal 0.0-0.1 [facility] Comment on above: Performed By: #### C BC ####[facility] Rtvcouqhrz4549 [place] [address]Dr. Villa Joaquín Basophils/100 WBC (Bld) 0.4 % Normal 0.2-2.0 [facility] Comment on above: Performed By: #### C BC ####[facility] Duswwsdyta4056 [place] [id number]. Villa Yanes EO # 0.3 103/ul Normal 0.0-0.7 [facility] Comment on above: Performed By: #### C BC ####[facility] Mdgdhslvho5713 [place] [address]Dr. Villa Yanes Eosinophils/100 WBC (Bld) 2.4 % Normal 0.9-7.0 [facility] Comment on above: Performed By: #### C BC ####[facility] Lrtmlekuyk97[address] [place], [place] [address]Dr. Villa Yanes Erythrocyte distribution width (RBC) [Ratio] 12.3 % Normal 11.0-15.0 [facility] Comment on above: Performed By: #### C BC ####[facility] Dtjixisvno4[address] [place], [place] [address]Dr. Villa Yanes Hematocrit (Bld) [Volume fraction] 34.6 % Critically low 42.0-54.0 [facility] Comment on above: Performed By: #### C BC ####[facility] Jlwpreqmes11[address] [place], [place] [address]Dr. Villa Yanes Hemoglobin (Bld) [Mass/Vol] 11.4 g/dL Critically low 14.0-18.0 [facility] Comment on above: Performed By: #### C BC ####[facility] Dduoxkvmxu75[address] [place], [place] [address]Dr. Villa Yanes IG # 0.07 10e3/ul Critically high 0.00-0.03 [facility] Comment on above: Performed By: #### C BC ####[facility] Yjfcqolacf2108 [place] [address]Dr. Villa Yanes IG % 0.5 % Normal 0.0-0.5 [facility] Comment on above: Performed By: #### C BC ####[facility] Vcvjnvdnzh24[address] [place], [place] [address]Dr. Villa Yanes LYMPH # 1.9 103/ul Normal 1.2-3.8 [facility] Comment on above: Performed By: #### C BC ####[facility] Wezazsmteu8644 [place] [phone]. Villa Yanes Lymphocytes/100 WBC (Bld) 14.4 % Critically low 20.5-60.0 [facility] Comment on above: Performed By: #### C BC ####[facility] Ibpwagbonj3779 [place] [phone]. Villa Yanes MANUAL DIFF REQ NO Normal [facility] Comment on above: Performed By: #### C BC ####[facility] Qlomcwzhcb4929 [place] [address]Dr. Villa Yanes MCH (RBC) [Entitic mass] 31.4 pg Normal 25.9-34.0 [facility] Comment on above: Performed By: #### C BC ####[facility] Qfjcunewqd4760 [place] [address]Dr. Villa Yanes MCHC (RBC) [Mass/Vol] 32.9 g/dL Normal 29.9-35.2 [facility] Comment on above: Performed By: #### C BC ####[facility] Qpeogzvmhv0552 [place] [address]Dr. Villa Yanes MCV (RBC) [Entitic vol] 95.3 fL Critically high 80.0-94.0 [facility] Comment on above: Performed By: #### C BC ####[facility] Wcaxyzffxq4254 [place] [address]Dr. Villa Joaquín MONO # 0.8 103/ul Normal 0.3-0.8 [facility] Comment on above: Performed By: #### C BC ####[facility] Krzgewswrv9347 [place] [address]Dr. Villa Joaquín Monocytes/100 WBC (Bld) 5.8 % Normal 1.7-12.0 [facility] Comment on above: Performed By: #### C BC ####[facility] Jbxunsizan00[address] [place], [place] [address]Dr. Villa Yanes NEUT # 10.3 103/ul Critically high 1.4-6.5 [facility] Comment on above: Performed By: #### C BC ####[facility] Bqothjhwjf7126 [place] [phone]. Villa Yanes Neutrophils/100 WBC (Bld) 76.5 % Critically high 43.0-75.0 [facility] Comment on above: Performed By: #### C BC ####[facility] Tpluwjchav0927 [place] [phone]. Villa Yanes Platelet mean volume (Bld) [Entitic vol] 9.6 fL Normal 9.5-13.5 [facility] Comment on above: Performed By: #### C BC ####[facility] Ojaodquukj97[address] [place] [address]Dr. Villa Yanes PLT 283 103/ul Normal 150-450 [facility] Comment on above: Performed By: #### C BC ####[facility] Zhzrnqfsus7437 [place] [address]Dr. Villa Yanes RBC 3.63 106/ul Critically low 4.70-6.10 [facility] Comment on above: Performed By: #### C BC ####[facility] Cvyhwikzjk0198 [place] [phone]. Villa Yanes WBC 13.4 103/ul Critically high 4.0-11.0 [facility] Comment on above: Performed By: #### C BC ####[facility] Bsfuhvulof8598 [place] [phone]. Villa Yanes CT ABD/PELV W CONon 04-03-[address] ABD/PELV W CON Normal [facility] ER URINE PROFILEon 2 Bilirubin Ql (U) Negative Normal NEGATIVE [facility] Comment on above: Performed By: #### U MICRO, ERUR ####[facility] [address]qqrgczoe[address] [place], [place] [address]Dr. Villa Yanes Clarity (U) CLEAR Normal CLEAR [facility] Comment on above: Performed By: #### U MICRO, ERUR ####[facility] Lllmvbxywx5081 [place] [phone]. Villa Yanes Color (U) YELLOW Normal YELLOW [facility] Comment on above: Performed By: #### U MICRO, ERUR ####[facility] Yobgyzcghe36[address] [place] [address]Dr. Villa DILLARDD A micrscopic examina tion will be performed if indicated. Normal [facility] Comment on above: Performed By: #### U MICRO, ERUR ####[facility] [address]ro[address] [place] [address]Dr. Villa Yanes Glucose Ql (U) Negative Normal NEGATIVE [facility] Comment on above: Performed By: #### U MICRO, ERUR ####[facility] T[address]qzrq[address] [place], [place] [address]Dr. Villa Yanes Hemoglobin Ql (U) Negative Normal NEGATIVE [facility] Comment on above: Performed By: #### U MICRO, ERUR ####[facility] Kwydvocjhw[address] [place], [place] [address]Dr. Villa Yanes Ketones Ql (U) Negative Normal NEGATIVE [facility] Comment on above: Performed By: #### U MICRO, ERUR ####[facility] Ssqmawetje[address] [place], [place] [address]Dr. Villa Yanes LEUKOCYTES TRACE Abnormal NEGATIVE [facility] Comment on above: Performed By: #### U MICRO, ERUR ####[facility] Uynxjnadfo[address] [place], [place] [address]Dr. Villa Yanes Nitrite Ql (U) Negative Normal NEGATIVE [facility] Comment on above: Performed By: #### U MICRO, ERUR ####[facility] Lcxgbhkftm[address] [place], [place] [address]Dr. Villa Yanes pH (U) 6.0 [pH] Normal 5-9 [facility] Comment on above: Performed By: #### U MICRO, ERUR ####[facility] Yhqpfjauqy[address] [place], [place] [address]Dr. Villa Yanes Protein (U) [Mass/Vol] 100 mg/dL Abnormal NEGATIVE/ TRACE [facility] Comment on above: Performed By: #### U MICRO, ERUR ####[facility] Dvhkf[address]jqs[address] [place], [place] [address]Dr. Villa Yanes SPEC GRAVITY 1.020 Normal 1.005-<=1.0 25 [facility] Comment on above: Performed By: #### U MICRO, ERUR ####[facility] [address]kwhsobh[address] [place] [address]Dr. Villa Yanes UR MICRO IND INDICATED Normal [facility] Comment on above: Performed By: #### U MICRO, ERUR ####[facility] Xrxcagckrj[address] [place] [address]Dr. Villa Yanes Urobilinogen Qn (U) 0.2 {Mackenzie'U}/dL Normal 0.2 - 1. 0 [facility] Comment on above: Performed By: #### U MICRO, ERUR ####[facility] Gtvawkqbbb[address] [place], [place] [address]Dr. Villa Yanes LIPASEon 04-03-2022 Lipase [Catalytic activity/Vol] 35.0 U/L Critically low 73.0-393.0 [facility] Comment on above: Performed By: #### L IPA, HSTROPN, CMP ####[facility] Rcquycrh[address] [place], [place] [address]Dr. Villa Yanes PROF 14(COMP METB)on 022 Albumin [Mass/Vol] 3.2 g/dL Critically low 3.4-5.0 [facility] Comment on above: Performed By: #### L IPA, HSTROPN, CMP ####[facility] Mflpuayryy[address] [place] [address]Dr. Villa Yanes Albumin/Globulin [Mass ratio] 0.8 {ratio} Normal [facility] Comment on above: Performed By: #### L IPA, HSTROPN, CMP ####[facility] Zmpdhymzkn[address] [place] [address]Dr. Villa Yanes ALP [Catalytic activity/Vol] 131 U/L Critically high 46-116 [facility] Comment on above: Performed By: #### L IPA, HSTROPN, CMP ####[facility] [address]zwwvjlil[address] [place] [address]Dr. Villa Yanes ALT [Catalytic activity/Vol] U/L Critically low 16-63 [facility] Comment on above: Performed By: #### L IPA, HSTROPN, CMP ####[facility] Llffzhwsgy[address]53 [place] [address]Dr. Villa Yanes Anion gap [Moles/Vol] 7.7 mmol/L Normal [facility] Comment on above: Performed By: #### L IPA, HSTROPN, CMP ####[facility] [address]hcbgltn[address] [place] [address]Dr. Villa Yanes AST [Catalytic activity/Vol] 6 U/L Critically low 15-37 [facility] Comment on above: Performed By: #### L IPA HSTROPN, CMP ####[facility] Zojouhvlma[address] [place], [place] [address]Dr. Villa Yanes Bilirubin [Mass/Vol] 0.2 mg/dL Normal 0.2-1.0 [facility] Comment on above: Performed By: #### L IPA HSTROPN, CMP ####[facility] G[address]rskvurf[address] [place], [place] [address]Dr. Villa Yanes Calcium [Mass/Vol] 9.1 mg/dL Normal 8.5-10.1 [facility] Comment on above: Performed By: #### L IPA HSTROPN, CMP ####[facility] Bbopvofbbm[address] [place], [place] [address]Dr. Villa Yanes Chloride [Moles/Vol] 104 mmol/L Normal 98-107 [facility] Comment on above: Performed By: #### L IPA HSTROPN, CMP ####[facility] P[address]xwrkmk[address] [place], [place] [address]Dr. Villa Yanes CO2 [Moles/Vol] 29.7 mmol/L Normal 21.0-32.0 [facility] Comment on above: Performed By: #### L IPA, HSTROPN, CMP ####[facility] Imcgiapcbo[address] [place], [place] [address]Dr. Villa Yanes Creatinine [Mass/Vol] 1.35 mg/dL Critically high 0.70-1.30 [facility] Comment on above: Performed By: #### L IPA, HSTROPN, CMP ####[facility] [address] [place] [address]Dr. Villa Yanes EGFR-AF CROATIAN >60 Normal >=60 [facility] Comment on above: Performed By: #### L IPA, HSTROPN, CMP ####[facility] [address]qggkfdvkt[address] [place] [address]Dr. Villa Yanes EGFR-NON AF CROATIAN 51 mL/min/1.73m2 Critically low >=60 [facility] Comment on above: Performed By: #### L IPA, HSTROPN, CMP ####[facility] Nfcfjwzqxp5[address] [place] [address]Dr. Villa Yanes Globulin (S) [Mass/Vol] 4.2 g/dL Normal [facility] Comment on above: Performed By: #### L IPA, HSTROPN, CMP ####[facility] Z[address]lthunon[address] [place], [place] [address]Dr. Villa Yanes Glucose [Mass/Vol] 116 mg/dL Critically high 74-106 [facility] Comment on above: Performed By: #### L IPA, HSTROPN, CMP ####[facility] [address]tr[address]yufdqq[address] [place], [place] [address]Dr. Villa Yanes Potassium [Moles/Vol] 3.4 mmol/L Critically low 3.5-5.1 [facility] Comment on above: Performed By: #### L IPA, HSTROPN, CMP ####[facility] E[address] [place], [place] [address]Dr. Villa Yanes Protein [Mass/Vol] 7.4 g/dL Normal 6.4-8.2 [facility] Comment on above: Performed By: #### L IPA, HSTROPN, CMP ####[facility] [address]fpez[address] [place], [place] [address]Dr. Villa Yanes Sodium [Moles/Vol] 138 mmol/L Normal 136-145 [facility] Comment on above: Performed By: #### L IPA, HSTROPN, CMP ####[facility] C[address] [place], [place] [address]Dr. Vlila Yanes Urea nitrogen [Mass/Vol] 35.0 mg/dL Critically high 7.0-18.0 [facility] Comment on above: Performed By: #### L IPA, HSTROPN, CMP ####[facility] [address] [place] [address]Dr. Villa Yanes Urea nitrogen/Creatinine [Mass ratio] 25.9 mg/mg Normal [facility] Comment on above: Performed By: #### L IPA, HSTROPN, CMP ####[facility] [address] [place] [address]Dr. Villa Yanes TROPONIN, HIGH SENSITIVITYon 04-03-2022 HSTROP 10.3 pg/mL Normal 4.0-76.1 [facility] Comment on above: Result Comment: CUT- OFF POINTS HAVE BEEN ESTABLISHED BASED ON THE FOURTH UNIVERSAL DEFINITIONS OF MYOCARDIALINFARCTION. THE UPPER REFERENCE LIMIT (URL) OF TROPONIN, DEFINED THE 99TH PERCENTILE OFcTnI DISTRIBUTION IN A REFERENCE POPULATION, HAS BEEN CONFIRMED THE DECISION THRESHOLDFOR CA DIAGNOSIS. Performed By: #### L IPA, HSTROPN, CMP ####[facility] [address] [place] [address]Dr. Villa Yanes URINE MICROSCOPIC ONLYon BACTERIA NONE SEEN Normal NONE SEEN [facility] Comment on above: Performed By: #### U MICRO, ERUR ####[facility] [address]dfywzosb[address] [place], [place] [address]Dr. Brooklynkaren Yanes Bacteria identified Cx Nom (U) NOT INDICATED Normal [facility] Comment on above: Performed By: #### U MICRO, ERUR ####[facility] [address] [place] [address]Dr. Villa Yanes CAST SEEN Abnormal NONE SEEN [facility] Comment on above: Performed By: #### U MICRO, ERUR ####[facility] [address] [place] [address]Dr. Villa Yanes Crystals LM Nom (Urine sed) NONE SEEN Normal NONE SEEN [facility] Comment on above: Performed By: #### U MICRO, ERUR ####[facility] [address] [place], [place] [address]Zt. Villa Yanes Epithelial cells LM Ql (Urine sed) NONE SEEN Normal NONE SEEN /RARE [facility] Comment on above: Performed By: #### U MICRO, ERUR ####[facility] [address] [place], [place] [address]Pi. Villa Yanes MUCOUS NONE SEEN Normal NONE SEEN [facility] Comment on above: Performed By: #### U MICRO, ERUR ####[facility] [address] [place], [place] [address]Tc. Villa Yanes RBC NONE SEEN Abnormal 0-2 [facility] Comment on above: Performed By: #### U MICRO, ERUR ####[facility] [address] [place], [place] [address]Bi. Villa Yanes WBC 0-2 Abnormal NONE SEEN [facility] Comment on above: Performed By: #### U MICRO, ERUR ####[facility] [address] [place] [id number]. 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 (414.01) (I25.10) Ischemic cardiomyopathy (414.8) (I25.5) Paroxysmal atrial fibrillation (427.31) (I48.0) Body mass index (BMI) of 19.9 or less in adult (Z68.1) Cardiac arrest (427.5) (I46.9) PVD (peripheral vascular disease) (443.9) (I73.9) CHF (NYHA class II, ACC/AHA stage C) (428.0) (I50.9) Current smoker (305.1) (F17.200) 1 ppd Orders Coronary artery disease involving snoqualmie coronary artery of [place] heart without angina pectoris Renew: Clopidogrel Bisulfate 75 MG Oral Tablet (Plavix); TAKE 1 TABLET DAILY Coronary artery disease involving s[place]qualmie coronary artery of [place] heart without angina pectoris, Hyperlipidemia Start: Atorvastatin Calcium 20 MG Oral Tablet; TAKE 1 TABLET AT BEDTIME Hyperlipidemia ALT - Alanine Aminotransferase, Serum; Status:Active - Retrospective Authorization; Requested for:12Mar2022; AST; Status:Active - Retrospective Authorization; Requested for:12Mar2022; Lipid Panel; Status:Active - Retrospective Authorization; Requested for:12Mar2022; SocHx: Current smoker You need to stop smoking. Though it is not easy, more than half of all adult smokers have quit. We encourage you to write down all the reasons you should quit smoking and set a quit date for yourself. Ask us how we can help. You may also call 4-074-VALERIO; Status:Complete - Retrospective Authorization; Done: 12Mar2022 Tobacco Use Screening; Status:Complete; Done: 12Mar2022 Patient Instructions Please bring all medicines, vitamins, and herbal supplements with you when you come to the office. Prescriptions will not be filled unless you are compliant with your follow up appointments or have a follow up appointment scheduled as per instruction of your physician. Refills should be requested at the time of your visit. Follow up in 6 months Chief Complaint FRANKI HERNANDEZ is being seen for a 6 month follow-up of. 82-year-old gentleman returns for follow-up. He has had previous high risk non-ST elevation CA earlier this year July 2021, with subsequent revascularization of the RCA with drug-eluting stent and normalization of his LV function originally from 30 now up to 60% as measured by echo at [facility]. He has underlying peripheral vascular disease, ongoing tobacco use, COPD, history of throat cancer with PEG tube. He underwent recent hospitalization at [facility] with significant weight loss and debility and revision of his PEG tube and now clinically improved putting and weight back on. He was diagnosed with paroxysmal atrial fibrillation at the clinic and therefore initiated on Eliquis therapy. [facility] records are reviewed in their entirety that are available today Notably he is not on a statin, he is not on JENNIFER or ARB. He is previously on Entresto but intolerant due to severe hypotension but now with normalized left ventricular function. We have counseled him on tobacco cessation extensively today, we will reinitiate atorvastatin 20 daily for secondary prevention, continue with the Eliquis clopidogrel combination at least through July 2022 at which point in time clopidogrel can come off. We will follow-up in 6 months Surgical History Problems History of Cardiac catheterization with stent placement History of Cataract surgery History of Complete colonoscopy Managed By: Shukri Poole MD (General Surgery) History of Epiglottidectomy History of Esophagogastroduodenoscopy History of Excision of basal cell carcinoma History of Lower back surgery History of Percutaneous endoscopic gastrostomy tube insertion History of NEEDLE MAKER femoral-popliteal History of Urinary catheter placement Current Meds Medication NameInstruction Eliquis 5 MG Oral TabletTake 1 tablet twice daily Ferrous Sulfate 220 (44 Fe) MG/5ML Oral LiquidTake once daily HYDROcodone-Acetaminophen 10-325 MG Oral TabletTAKE TABLET PRN Lantus SoloStar 100 UNIT/ML Subcutaneous Solution Pen-injector Levemir FlexTouch 100 UNIT/ML Subcutaneous Solution Pen-injector Levothyroxine Sodium 75 MCG Oral TabletTake 1 tablet daily Pantoprazole Sodium 20 MG Oral Tablet Delayed ReleaseTAKE 1 TABLET DAILY. Liquid form Plavix 75 MG Oral TabletTAKE 1 TABLET DAILY. Allergies Medication JENNIFER Inhibitors Hypotension;; Recorded By: Rochelle Herrmann; 02/23/2022 12:50:26 PM Brilinta TABS Adverse Reaction; Shortness of breath;; Recorded By: Carly Howard; 09/11/2021 9:51:25 AM diphenhydrAMINE Recorded By: Carly Howard; 09/11/2021 10:08:37 AM Social History Problems Caffeine use (V49.89) (Z78.9) some tea Current smoker (305.1) (F17.200) 1 ppd No alcohol use No illicit drug use Review of Systems Constitutional: feeling tired and chills . Sweats. Cardiovascular: no intermittent leg claudication and as noted in HPI. Respiratory: no cough and no shortness of breath. Gastrointestinal: no change i (more content not included)... Normal Decision Pace Tobacco Screening.on 022 Fall risk assessment a) No falls within the last year [facility] [employer] DO Work Phone: Tobacco use status CP a) Yes [facility] [employer] DO Work Phone: Tobacco Screening. 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) Associated with > 60 pound weight loss > 20 point drop Dec 2021 + symptoms Off Entresto symptoms resolved Coronary artery disease involving snoqualmie coronary artery of s[place] heart without angina pectoris (414.01) (I25.10) Jun 2021 ACS admit pRCA PCI/[place] 2.75/18mm LAD 20% dCX 80% - medical treatment Ischemic cardiomyopathy (414.8) (I25.5) ICM HF improved EF 60% October 2021 Echo (EF 20-25% Jun 2021) FC II Stage C GDMT: Unable to tolerate at this time d/t orthostatic hypotension Paroxysmal atrial fibrillation (427.31) (I48.0) Documented at October 2021 [facility] admit Asymptomatic RRR in office Anticoagulated (V58.61) (Z79.01) CHADS VASc 4 full dose Eliquis (81 y/o, CR 1.2, WT < 60kg) Hyperlipidemia (272.4) (E78.5) High intensity statin has been stopped ? if d/t diarrhea Current smoker (305.1) (F17.200) 5 cigarettes Continued every day tobacco use. Have reviewed the negative cardiovascular impact of nicotine. Continues to decline pharmacological assistance. Body mass index (BMI) of 19.9 or less in adult (Z68.1) Orders SocHx: Current smoker You need to stop smoking. Though it is not easy, more than half of all adult smokers have quit. We encourage you to write down all the reasons you should quit smoking and set a quit date for yourself. Ask us how we can help. You may also call 5-910-UDZC-NOW for free resources and assistance.; Status:Complete; Done: [id number] Tobacco Use Screening; Status:Complete; Done: [id number] Patient Instructions Please bring all medicines, vitamins, and herbal supplements with you when you come to the office. Prescriptions will not be filled unless you are compliant with your follow up appointments or have a follow up appointment scheduled as per instruction of your physician. Refills should be requested at the time of your visit. PLAN: Through informed decision making process incorporating patients unique circumstances, the following treatment plan will be initiated: 1. Prescription drug management of cardiovascular medication for efficacy, adherence to treatment, side effect assessment and polypharmacy. Current treatment clinically warranted and to continue without modifications. 2. Return for follow-up; in the interim, contact the office if new symptoms arise. Dr. Collins as scheduled Chief Complaint f/u orthostatic hypotension: 'doing much better off medicines' FRANKI HERNANDEZ is being seen for a 2 week follow-up of orthostatic hypotension. Patient presents today ambulatory with steady gait. Accompanied by daughter. Last evaluated in clinic myself Dec 2021. At that time +OH, stopped entresto. Overall, patient reports doing much better off medications. Daily activity: starting to increase. Overall, denies chest pain and 'breathing pretty good' Standing BP 110/62 Overall patient is pleased with current state of cardiovascular health. At this time there are no indications for additional cardiovascular testing or need for medication changes. History of Present Illness The patient states he has been generally doing well since the last visit. Symptoms: denies chest pain at rest, denies exertional chest pain, denies dyspnea, stable fatigue, stable exercise intolerance, denies palpitations, denies edema, denies orthopnea, resolved dizziness and resolved orthostatic dizziness. Associated symptoms: no syncope. His symptoms do not limit his activities. Disease Monitoring: The patient has had a 5 pounds weight gain. Medications: the patient is adherent with his medication regimen. He denies medication side effects. Surgical History Problems History of Cardiac catheterization with stent placement History of Cataract surgery History of Complete colonoscopy Managed By: Virgilio PATEL, Shukri Taylor (General Surgery) History of Epiglottidectomy History of Esophagogastroduodenoscopy History of Excision of basal cell carcinoma History of Lower back surgery History of NEEDLE MAKER femoral-popliteal History of Urinary catheter placement Current Meds Medication NameInstruction Eliquis 5 MG Oral TabletTake 1 tablet twice daily Ferrous Sulfate 220 (44 Fe) MG/5ML Oral LiquidTake once daily Finasteride 5 MG Oral TabletTAKE 1 TABLET DAILY. HYDROcodone-Acetaminophen 10-325 MG Oral TabletTAKE TABLET PRN Levemir FlexTouch 100 UNIT/ML Subcutaneous Solution Pen-injector Levothyroxine Sodium 75 MCG Oral TabletTake 1 tablet daily Pantoprazole Sodium 20 MG Oral Tablet Delayed ReleaseTAKE 1 TABLET DAILY. Liquid form Plavix 75 MG Oral TabletTAKE 1 TABLET DAILY. Pramipexole Dihydrochloride 0.5 MG Oral TabletTAKE 1 TABLET Daily prn Allergies Medication JENNIFER Inhibitors Hypotension;; Recorded By: Rochelle Herrmann; 02/23/2022 12:50:26 PM Brilinta TABS Adverse Reaction; Shortness of breath;; Recorded By: Carly Howard; 09/11/2021 9:51:25 AM diphenhydrAMINE Recorded By: Anita, (more content not included)... Normal [employer] Tobacco Screening.on 022 Adult depression screening assessment No -[facility] DO Work Phone: Fall risk assessment a) No falls within the last year [facility] [employer] DO Work Phone: Tobacco use status CPHS a) Yes [facility] [employer]ika [employer] DO Work Phone: Tobacco Screening. Yes [facility]ika 250 DO Work Phone: Basic metabolic 2000 panelon 02-03-2022 Anion gap [Moles/Vol] 12 mmol/L Normal 9-18 [facility] Comment on above: Order Comment: Speci men Type: BLOOD SPECIMENOrdering Facility: [facility] Address: [address] [place] [phone] Performed By: #### 1 9123-9, 2777-1, 05995-3 ####[facility] [place] [facility] [id number] [place] [id number] [place] Calcium [Mass/Vol] 10.1 mg/dL Normal 8.5-10.2 [facility] Comment on above: Order Comment: Speci men Type: BLOOD SPECIMENOrdering Facility: [facility] Address: [address] [place] [phone] Performed By: #### 1 9123-9, 2777-1, 16400-0 ####[facility] [place] LABCL[facility] [id number] [address] [address] [place] Chloride [Moles/Vol] 100 mmol/L Normal 97-[address] [facility] Comment on above: Order Comment: Speci men Type: BLOOD SPECIMENOrdering Facility: [facility] Address: [address] [place], [place] [id number] Performed By: #### 1 9123-9, 27711-21, 36377-7 ####[facility] LABCLIA [id number] [place] [address] [place] CO2 [Moles/Vol] 24 mmol/L Normal 22-30 [facility] Comment on above: Order Comment: Speci men Type: BLOOD SPECIMENOrdering Facility: [facility] Address: [address] [place] [address] Performed By: #### 1 9123-9, 27711-21, 10946-7 ####[facility] [id number] [place] [address] [place] Creatinine [Mass/Vol] 1.14 mg/dL Normal 0.73-1.22 [facility] Comment on above: Order Comment: Speci men Type: BLOOD SPECIMENOrdering Facility: [facility] Address: [address] [place] [address] Performed By: #### 1 9123-9, 27711-21, 43223-3 ####[facility] LABIA [id number] [place] [address] [place] ESTIMATED GLOMERULAR FILTRATION RATE 65 mL/min/1.73m??? Normal >=60 [facility] Comment on above: Order Comment: Speci men Type: BLOOD SPECIMENOrdering Facility: [facility] Address: [address] [place], [place] [id number] Result Comment: Sandra mated Glomerular Filtration Rate (eGFR) is calculated using the 2020 CKD-EPI creatinine equation. This equation utilizes serum creatinine, sex, and age as parameters. The creatinine assay has traceable calibration to isotope dilution-mass spectrometry. Refer to KDIGO guidelines for clinical interpretation. In patients with unstable renal function, e.g. those with acute kidney injury, the eGFR may not accurately reflect actual GFR. Performed By: #### 1 9123-9, 2777-, 20153-6 ####[facility] LABCLIA [id number] [address] [address] [place] Glucose [Mass/Vol] 209 mg/dL High 74-99 [facility] Comment on above: Order Comment: Speci men Type: BLOOD SPECIMENOrdering Facility: [facility] Address: [address] [place] [phone] Result Comment: The [place] [employer] (ADA) provides guidance for cutoff values for fasting glucose and random glucose. The ADA defines fasting as no caloric intake for at least 8 hours. Fasting plasma glucose results between 100 to 125 mg/dL indicate increased risk for diabetes (prediabetes).Fasting plasma glucose results greater than or equal to 126 mg/dL meet the criteria for diagnosis of diabetes. In the absence of unequivocal hyperglycemia, results should be confirmed by repeat testing. In a patient with classic symptoms of hyperglycemia or hyperglycemic crisis, random plasma glucose results greater than or equal to 200 mg/dL meet the criteria for diagnosis of diabetes.Reference: Standards of Medical Care in Diabetes 2016, [place] [employer]. Diabetes Care. 2016.39(Suppl 1). Performed By: #### 1 9123-9, 2777-, 48751-5 ####[facility] LABIA [id number] [place] [address] [place] Potassium [Moles/Vol] 4.8 mmol/L Normal 3.7-5.1 [facility] Comment on above: Order Comment: Speci men Type: BLOOD SPECIMENOrdering Facility: [facility] Address: [address] [place] [address] Performed By: #### 1 9123-9, 2777-, 79350-9 ####[facility] [id number] [address] [address] [place] Sodium [Moles/Vol] 136 mmol/L Normal 136-144 [facility] Comment on above: Order Comment: Speci men Type: BLOOD SPECIMENOrdering Facility: [facility] Address: [address] [place], [place] [address] Performed By: #### 1 9123-9, 2777-1, 51048-3 ####[facility] LABCLIA [id number] [place] [address] [place] Urea nitrogen [Mass/Vol] 32 mg/dL High 9-24 [facility] Comment on above: Order Comment: Speci men Type: BLOOD SPECIMENOrdering Facility: [facility] Address: [address] [place], [place] [address] Performed By: #### 1 9123-9, 2777-1, 98220-2 ####[facility] LABCLIA [id number] [place] [address] [place] CASE MANAGEMon 02-03-2022 CASE MANAGEM Normal [facility] CBC W Auto Differential pane l (Bld)on 02-03-2022 Basophils (Bld) [#/Vol] 10*3/uL Normal <0.11 [facility] Comment on above: Order Comment: Speci men Type: BLOOD SPECIMENOrdering Facility: [facility] Address: [address] [place], [place] [address] Performed By: #### 5 7021-8 ####[facility] LABCLIA [id number] [place] [address] [place] Basophils/100 WBC (Bld) 0.1 % Normal [facility] Comment on above: Order Comment: Speci men Type: BLOOD SPECIMENOrdering Facility: [facility] Address: [address] [place], [place] [address] Performed By: #### 5 7021-8 ####[facility] LABCLIA [id number] [place] [address] [place] Differential cell count method Nom (Bld) Auto Normal [facility] Comment on above: Order Comment: Speci men Type: BLOOD SPECIMENOrdering Facility: [facility] Address: [address] [place] [address] Performed By: #### 5 7021-8 ####[facility] LABCLIA [id number] [place] [address] [place] Eosinophils (Bld) [#/Vol] 10*3/uL Normal <0.46 [facility] Comment on above: Order Comment: Speci men Type: BLOOD SPECIMENOrdering Facility: [facility] Address: [address] [place], [place] [address] Performed By: #### 5 7021-8 ####[facility] LABCLIA [id number] [place] [address] [place] Eosinophils/100 WBC (Bld) 0.0 % Normal [facility] Comment on above: Order Comment: Speci men Type: BLOOD SPECIMENOrdering Facility: [facility] Address: [address] [place], [place] [address] Performed By: #### 5 7021-8 ####[facility] LABCLIA [id number] [place] [address] [place] Erythrocyte distribution width (RBC) [Ratio] 13.2 % Normal 11.5-15.0 [facility] Comment on above: Order Comment: Speci men Type: BLOOD SPECIMENOrdering Facility: [facility] Address: [address] [place] [address] Performed By: #### 5 7021-8 ####[facility] LABCLIA [id number] [place] [address] [place] Hematocrit (Bld) [Volume fraction] 34.6 % Low 39.0-51.0 [facility] Comment on above: Order Comment: Speci men Type: BLOOD SPECIMENOrdering Facility: [facility] Address: [address] [place], [place] [address] Performed By: #### 5 7021-8 ####[facility] LABCLIA [id number] [place] Hemoglobin (Bld) [Mass/Vol] 11.6 g/dL Low 13.0-17.0 [facility] Comment on above: Order Comment: Speci men Type: BLOOD SPECIMENOrdering Facility: [facility] Address: [address] [place] [address] Performed By: #### 5 7021-8 ####[facility] LABCLIA [id number] [address] OF [facility] IMMATURE GRAN % 1.0 % Normal [facility] Comment on above: Order Comment: Speci men Type: BLOOD SPECIMENOrdering Facility: [facility] Address: [address] [place] [address] Performed By: #### 5 7021-8 ####[facility] LABCLIA [id number] [address] STATES OF [facility] IMMATURE GRAN ABS 0.15 k/uL High <0.10 [facility] Comment on above: Order Comment: Speci men Type: BLOOD SPECIMENOrdering Facility: [facility] Address: [address] [place], [place] [address] Performed By: #### 5 7021-8 ####[facility] [id number] [place] [address] [place] Lymphocytes (Bld) [#/Vol] 0.79 10*3/uL Low 1.00-4.00 [facility] Comment on above: Order Comment: Speci men Type: BLOOD SPECIMENOrdering Facility: [facility] Address: [address] [place], [place] [address] Performed By: #### 5 7021-8 ####[facility] LABCLIA [id number] [address] [place] Lymphocytes/100 WBC (Bld) 5.2 % Normal [facility] Comment on above: Order Comment: Speci men Type: BLOOD SPECIMENOrdering Facility: [facility] Address: [address] [place], [place] [address] Performed By: #### 5 7021-8 ####[facility] [id number] [address] MCH (RBC) [Entitic mass] 32.0 pg Normal 26.0-34.0 [facility] Comment on above: Order Comment: Speci men Type: BLOOD SPECIMENOrdering Facility: [facility] Address: [address] [place], [place] [address] Performed By: #### 5 7021-8 ####[facility] [id number] [address] [place] MCHC (RBC) [Mass/Vol] 33.5 g/dL Normal 30.5-36.0 [facility] Comment on above: Order Comment: Speci men Type: BLOOD SPECIMENOrdering Facility: [facility] Address: [address] [place], [place] [address] Performed By: #### 5 7021-8 ####[facility] [id number] [address] [place] MCV (RBC) [Entitic vol] 95.6 fL Normal 80.0-100.0 [facility] Comment on above: Order Comment: Speci men Type: BLOOD SPECIMENOrdering Facility: [facility] Address: [address] [place], [place] [address] Performed By: #### 5 7021-8 ####[facility] [id number] [place] [address] [place] Monocytes (Bld) [#/Vol] 0.10 10*3/uL Normal <0.87 [facility] Comment on above: Order Comment: Speci men Type: BLOOD SPECIMENOrdering Facility: [facility] Address: [address] [place], [place] [address] Performed By: #### 5 7021-8 ####[facility] LABCLIA [id number] [address] [address] [place] Monocytes/100 WBC (Bld) 0.7 % Normal [facility] Comment on above: Order Comment: Speci men Type: BLOOD SPECIMENOrdering Facility: [facility] Address: [address] [place], [place] [address] Performed By: #### 5 7021-8 ####[facility] LABCLIA [id number] [place] [address] [place] Neutrophils (Bld) [#/Vol] 14.02 10*3/uL High 1.45-7.50 [facility] Comment on above: Order Comment: Speci men Type: BLOOD SPECIMENOrdering Facility: [facility] Address: [address] [place] [address] Performed By: #### 5 7021-8 ####[facility] LABCLIA [id number] [place] [address] [place] Neutrophils/100 WBC (Bld) 93.0 % Normal [facility] Comment on above: Order Comment: Speci men Type: BLOOD SPECIMENOrdering Facility: [facility] Address: [address] [place] [address] Performed By: #### 5 7021-8 ####[facility] LABCLIA [id number] [place] [address] [place] Nucleated RBC (Bld) [#/Vol] 10*3/uL Normal <0.01 [facility] Comment on above: Order Comment: Speci men Type: BLOOD SPECIMENOrdering Facility: [facility] Address: [address] [place] [address] Performed By: #### 5 7021-8 ####[facility] LABCLIA [id number] [place] [address] [place] Nucleated RBC/100 WBC (Bld) [Ratio] 0.0 /100 WBC Normal [facility] Comment on above: Order Comment: Speci men Type: BLOOD SPECIMENOrdering Facility: [facility] Address: [address] [place], [place] [address] Performed By: #### 5 7021-8 ####[facility] LABCLIA [id number] [place] [address] [place] Platelet mean volume (Bld) [Entitic vol] 10.3 fL Normal 9.0-12.7 [facility] Comment on above: Order Comment: Speci men Type: BLOOD SPECIMENOrdering Facility: [facility] Address: [address] [place], [place] [address] Performed By: #### 5 7021-8 ####[facility] LABCLIA [id number] [place] [address] [place] Platelets (Bld) [#/Vol] 351 10*3/uL Normal 150-400 [facility] Comment on above: Order Comment: Speci men Type: BLOOD SPECIMENOrdering Facility: [facility] Address: [address] [place], [place] [address] Performed By: #### 5 7021-8 ####[facility] LABCLIA [id number] [place] [address] [place] RBC (Bld) [#/Vol] 3.62 10*6/uL Low 4.20-6.00 [facility] Comment on above: Order Comment: Speci men Type: BLOOD SPECIMENOrdering Facility: [facility] Address: [address] [place], [place] [address] Performed By: #### 5 7021-8 ####[facility] LABCLIA [id number] [place] [address] [place] WBC (Bld) [#/Vol] 15.08 10*3/uL High 3.70-11.[address] [facility] Comment on above: Order Comment: Speci men Type: BLOOD SPECIMENOrdering Facility: [facility] Address: [address] [place] [address] Performed By: #### 5 7021-8 ####[facility]IA [id number] [place] [address] [place] Magnesium SerPl-mCncon 02-03 Magnesium [Mass/Vol] 2.1 mg/dL Normal 1.7-2.[address] [facility] Comment on above: Order Comment: Speci men Type: BLOOD SPECIMENOrdering Facility: [facility] Address: [address] [place], [place] [address] Performed By: #### 1 9123-9, 2777-1, 30905-8 ####[facility] [id number] [place] [address] [place] NURSING PROGon 02-03-2022 NURSING PROG Normal [facility] NUTRITIONon 02-03-2022 NUTRITION Normal [facility] PT EDon 02-03-2022 PT ED Normal [facility] Phosphate SerPl-mCncon 02-03 Phosphate [Mass/Vol] 3.2 mg/dL Normal 2.7-4.[address] [facility] Comment on above: Order Comment: Speci men Type: BLOOD SPECIMENOrdering Facility: [facility] Address: [address] [place] [address] Performed By: #### 1 9123-9, 2777-1, 09452-4 ####[facility] [id number] [place] [id number] [place] THERAPY NTon 02-03-2022 THERAPY NT Normal [facility] THERAPY NT Normal [facility] ANES POSTPROC EVALon 022 ANES POSTPROC EVAL Normal [facility] ANES PRE-OPon 02-02-2022 ANES PRE-OP Normal [facility] BRIEF OP NOTon 02-02-2022 BRIEF OP NOT Normal [facility] CNPNon 02-02-2022 CNPN Normal [facility] OPERATIVE NOon 02-02-2022 OPERATIVE NO Normal [facility] CNPNon 01-27-2022 CNPN Normal [facility] HISTORY PHYSICALon 2 HISTORY PHYSICAL Normal [facility] NURSING PROGon 01-24-2022 NURSING PROG Normal [facility] XR ABDOMEN 1V SUPINEon 01-24 XR ABDOMEN 1V SUPINE Normal [facility] XR ABDOMEN 1V SUPINE Normal [facility] CNOVon 2022 CNOV Normal [facility] Tobacco Screening.on 022 Fall risk assessment b) One or more fall s in the last year -[facility] marika 250 DO Work Phone: Tobacco use status CP a) Yes MP-[facility] marika 250 DO Work Phone: Tobacco Screening. Yes [facility] marika 250 DO Work Phone: CNOVon 12-31-2021 CNOV Normal [facility] CNOV Normal [facility] HISTORY PHYSICALon 2 HISTORY PHYSICAL Normal [facility] CULTURE URINEon 12-21-2021 CULTURE URINE Normal [facility] Comment on above: Performed By: #### U RCX ####[facility] [address] [place] [address]Dr. Villa Yanes UA RANDOM W/MICROSCOPICon BACTERIA LARGE Abnormal NONE SEEN [facility] Comment on above: Performed By: #### U AMIC ####[facility] Y[address] [place] [phone]. Villa Ynaes Bilirubin Ql (U) Negative Normal NEGATIVE [facility] Comment on above: Performed By: #### U AMIC ####[facility] Hvlfdautma549[address] [place] [phone]. Villa Yanes CAST NONE SEEN Normal NONE SEEN [facility] Comment on above: Performed By: #### U AMIC ####[facility] [address]brvcq[address] [place] [address]Dr. Villa Yanes Clarity (U) CLEAR Normal CLEAR [facility] Comment on above: Performed By: #### U AMIC ####[facility] Z[address] [place], [place] [address]Dr. Villa Yanes Color (U) LT. YELLOW Normal YELLOW [facility] Comment on above: Performed By: #### U AMIC ####[facility] [address] [place], [place] [address]Dr. Villa Yanes Crystals LM Nom (Urine sed) NONE SEEN Normal NONE SEEN [facility] Comment on above: Performed By: #### U AMIC ####[facility] Qhfcchbxoq[address] [place], [place] [address]Dr. Villa Yanes Epithelial cells LM Ql (Urine sed) FEW Abnormal NONE SEEN /RARE [facility] Comment on above: Performed By: #### U AMIC ####[facility] J[address]meqf[address]to[address] [place], [place] [address]Dr. Villa Yanes Glucose Ql (U) Negative Normal NEGATIVE [facility] Comment on above: Performed By: #### U AMIC ####[facility] Gprv[address]raor[address] [place], [place] [address]Dr. Villa Yanes Hemoglobin Ql (U) Negative Normal NEGATIVE [facility] Comment on above: Performed By: #### U AMIC ####[facility] [address]qct[address]xafz[address] [place], [place] [address]Dr. Villa Yanes Ketones Ql (U) Negative Normal NEGATIVE [facility] Comment on above: Performed By: #### U AMIC ####[facility] Lpcdyljbmx[address] [place], [place] [address]Dr. Villa Yanes LEUKOCYTES LARGE Abnormal NEGATIVE [facility] Comment on above: Performed By: #### U AMIC ####[facility] Aqdxyvetmv[address] [place], [place] [address]Dr. Villa Yanes MUCOUS NONE SEEN Normal NONE SEEN [facility] Comment on above: Performed By: #### U AMIC ####[facility] [address]wwj[address] [place], [place] [address]Dr. Villa Yanes Nitrite Ql (U) Negative Normal NEGATIVE [facility] Comment on above: Performed By: #### U AMIC ####[facility] [address]da[address] [place] [address]Dr. Villa Yanes pH (U) 7.5 [pH] Normal 5-9 [facility] Comment on above: Performed By: #### U AMIC ####[facility] Mrfuwippib05[address] [place] [phone]. Villa Yanes RBC NONE SEEN Abnormal 0-2 [facility] Comment on above: Performed By: #### U AMIC ####[facility] Tbhmtomxlb[address] [place] [address]Dr. Villa Yanes SPEC GRAVITY 1.015 Normal 1.005-<=1.0 25 [facility] Comment on above: Performed By: #### U AMIC ####[facility] Yq[address]qnximn[address] [place], [place] [address]Dr. Villa Yanes UA PROTEIN 100 mg/dl Abnormal NEGATIVE/ TRACE [facility] Comment on above: Performed By: #### U AMIC ####[facility] Tfms[address]zymh[address] [place], [place] [address]Dr. Villa Yanes Urobilinogen Qn (U) 0.2 {Mackenzie'U}/dL Normal 0.2 - 1. 0 [facility] Comment on above: Performed By: #### U AMIC ####[facility] K[address]iarwlas[address] [place], [place] [address]Dr. Villa Yanes WBC 50-75 Abnormal NONE SEEN [facility] Comment on above: Performed By: #### U AMIC ####[facility] V[address]adqpovr[address] [place], [place] [address]Dr. Villa Joaquín CBC AUTO DIFFon 12-18-2021 BASO # 0.1 103/ul Normal 0.0-0.1 [facility] Comment on above: Performed By: #### C BC ####[facility] Ligwifgmge[address] [place], [place] [address]Dr. Villa Yanes Basophils/100 WBC (Bld) 0.7 % Normal 0.2-2.0 [facility] Comment on above: Performed By: #### C BC ####[facility] Omcxobsgxz[address] [place] [phone]. Villa Yanes EO # 0.6 103/ul Normal 0.0-0.7 [facility] Comment on above: Performed By: #### C BC ####[facility] Drkhrleysz9699 [place] [phone]. Villa Yanes Eosinophils/100 WBC (Bld) 4.0 % Normal 0.9-7.0 [facility] Comment on above: Performed By: #### C BC ####[facility] Immgajhzth[address] [place], [place] [address]Dr. Villa Yanes Erythrocyte distribution width (RBC) [Ratio] 13.9 % Normal 11.0-15.0 [facility] Comment on above: Performed By: #### C BC ####[facility] Wbcxitxvdr[address] [place], [place] [address]Dr. Villa Yanes Hematocrit (Bld) [Volume fraction] 33.4 % Critically low 42.0-54.0 [facility] Comment on above: Performed By: #### C BC ####[facility] Qswewrqkdy[address] [place], [place] [address]Dr. Villa Yanes Hemoglobin (Bld) [Mass/Vol] 11.1 g/dL Critically low 14.0-18.0 [facility] Comment on above: Performed By: #### C BC ####[facility] R[address]yymcd[address] [place], [place] [address]Dr. Villa Yanes IG # 0.15 10e3/ul Critically high 0.00-0.03 [facility] Comment on above: Performed By: #### C BC ####[facility] Tybklw[address]hq[address] [place], [place] [address]Dr. Villa Yanes IG % 1.0 % Critically high 0.0-0.5 [facility] Comment on above: Performed By: #### C BC ####[facility] [address]big[address] [place], [place] [address]Dr. Villa Yanes LYMPH # 1.9 103/ul Normal 1.2-3.8 [facility] Comment on above: Performed By: #### C BC ####[facility] Nqfdbcksxs25[address] [place] [phone]. Villa oJaquín Lymphocytes/100 WBC (Bld) 12.2 % Critically low 20.5-60.0 [facility] Comment on above: Performed By: #### C BC ####[facility] Zocry[address]att[address] [place] [phone]. Villa Yanes MANUAL DIFF REQ NO Normal [facility] Comment on above: Performed By: #### C BC ####[facility] Dnewwddkph27[address] [place] [phone]. Brooklynkaren Yanes MCH (RBC) [Entitic mass] 31.3 pg Normal 25.9-34.0 [facility] Comment on above: Performed By: #### C BC ####[facility] [address] [place] [address]Dr. Villa Yanes MCHC (RBC) [Mass/Vol] 33.2 g/dL Normal 29.9-35.2 [facility] Comment on above: Performed By: #### C BC ####[facility] Okxjevoqxo[address] [place] [address]Dr. Brooklynkaren Yanes MCV (RBC) [Entitic vol] 94.1 fL Critically high 80.0-94.0 [facility] Comment on above: Performed By: #### C BC ####[facility] [address]kn[address] [place], [place] [address]Dr. Villa Yanes MONO # 0.9 103/ul Critically high 0.3-0.8 [facility] Comment on above: Performed By: #### C BC ####[facility] E[address]rjsev[address] [place] [address]Dr. Brooklynkaren Yanes Monocytes/100 WBC (Bld) 5.9 % Normal 1.7-12.0 [facility] Comment on above: Performed By: #### C BC ####[facility] [address] [place], [place] [address]Dr. Villa Yanes NEUT # 12.0 103/ul Critically high 1.4-6.5 [facility] Comment on above: Performed By: #### C BC ####[facility] Aqfrctonfs27[address] [place] [phone]. Villa Yanes Neutrophils/100 WBC (Bld) 76.2 % Critically high 43.0-75.0 [facility] Comment on above: Performed By: #### C BC ####[facility] Epddljylhk4920 [place] [phone]. Villa Yanes Platelet mean volume (Bld) [Entitic vol] 9.8 fL Normal 9.5-13.5 [facility] Comment on above: Performed By: #### C BC ####[facility] [address]zpsjz[address] [place] [address]Dr. Villa Yanes PLT 397 103/ul Normal 150-450 [facility] Comment on above: Performed By: #### C BC ####[facility] Olnnczifjr24[address] [place] [phone]. Villa Yanes RBC 3.55 106/ul Critically low 4.70-6.10 [facility] Comment on above: Performed By: #### C BC ####[facility] Gctpdquaxu8427 [place] [phone]. Villa Yanes WBC 15.7 103/ul Critically high 4.0-11.0 [facility] Comment on above: Performed By: #### C BC ####[facility] Brbvfgngaw[address] [place] [phone]. Villa Yanes GLYCOHEMOGLOBIN A1Con 2021 ADA RECOMMENDATION SEE BELOW Normal [facility] Comment on above: Result Comment: ADA RECOMMENDED LIMIT 4.0 - 6.0 ADA THERAPEUTIC TARGET < 7.0 ACTION SUGGESTED > 7.0 Performed By: #### A 1C ####[facility] [address]xcqi[address] [place] [address]Dr. Villa Yanes Glucose [Mass/Vol] 134 mg/dL Normal [facility] Comment on above: Performed By: #### A 1C ####[facility] Cntkfushmz7[address] [place] [phone]. Villa Yanes HbA1c (Bld) [Mass fraction] 6.3 % Critically high 4.5-6.2 [facility] Comment on above: Performed By: #### A 1C ####[facility] [address]rlhl[address] [place] [address]Dr. Villa Yanes MAGNESIUMon 12-18-2021 Magnesium [Mass/Vol] 2.2 mg/dL Normal 1.8-2.4 [facility] Comment on above: Performed By: #### M Arabella, PHOS, TSH, CMP ####[facility] [address]xq[address] [place] [address]Dr. Villa Yanes PHOSPHORUSon 12-18-2021 Phosphate [Mass/Vol] 3.6 mg/dL Normal 2.6-4.7 [facility] Comment on above: Performed By: #### Dick Bell, PHOS, TSH, CMP ####[facility] [address]ujx[address] [place] [address]Dr. Villa Yanes PROF 14(COMP METB)on 022 Albumin [Mass/Vol] 3.2 g/dL Critically low 3.4-5.0 [facility] Comment on above: Performed By: #### Dick Bell, PHOS, TSH, CMP ####[facility] [address] [place] [address]Dr. Villa Yanes Albumin/Globulin [Mass ratio] 0.8 {ratio} Normal [facility] Comment on above: Performed By: #### Dick Bell, PHOS, TSH, CMP ####[facility] [address] [address]Dr. Villa Yanes ALP [Catalytic activity/Vol] 141 U/L Critically high 46-116 [facility] Comment on above: Performed By: #### Dick Bell, PHOS, TSH, CMP ####[facility] [address] [place] [address]Dr. Villa Yanes ALT [Catalytic activity/Vol] 8 U/L Critically low 16-63 [facility] Comment on above: Performed By: #### Dick G, PHOS, TSH, CMP ####[facility] [address] [place] [address]Dr. Villa Yanes Anion gap [Moles/Vol] 13.1 mmol/L Normal Th e [facility] Comment on above: Performed By: #### Dick Bell, PHOS, TSH, CMP ####[facility] [address] [place], [place] [address]Dr. Villa Yanes AST [Catalytic activity/Vol] 5 U/L Critically low 15-37 [facility] Comment on above: Performed By: #### Dick Bell, PHOS, TSH, CMP ####[facility] [address] [place], [place] [address]Dr. Villa Yanes Bilirubin [Mass/Vol] 0.3 mg/dL Normal 0.2-1.0 [facility] Comment on above: Performed By: #### Dick Bell, PHOS, TSH, CMP ####[facility] [address] [place], [place] [address]Dr. Villa Yanes Calcium [Mass/Vol] 9.3 mg/dL Normal 8.5-10.1 [facility] Comment on above: Performed By: #### Dick Bell, PHOS, TSH, CMP ####[facility] [address] [place], [place] [address]Dr. Villa Yanes Chloride [Moles/Vol] 102 mmol/L Normal 98-107 [facility] Comment on above: Performed By: #### Dick Bell, PHOS, TSH, CMP ####[facility] [address] [place], [place] [address]Dr. Villa Yanes CO2 [Moles/Vol] 28.8 mmol/L Normal 21.0-32.0 [facility] Comment on above: Performed By: #### Dick Bell, PHOS, TSH, CMP ####[facility] Jobqzmkzst[address] [place], [place] [address]Dr. Villa Yanes Creatinine [Mass/Vol] 1.20 mg/dL Normal 0.70-1.30 [facility] Comment on above: Performed By: #### Dick G, PHOS, TSH, CMP ####[facility] [address] [place], [place] [address]Dr. Villa Yanes EGFR-AF CROATIAN >60 Normal >=60 [facility] Comment on above: Performed By: #### M G, PHOS, TSH, CMP ####[facility] [address] [place] [address]Dr. Villa Yanes EGFR-NON AF CROATIAN 58 mL/min/1.73m2 Critically low >=60 [facility] Comment on above: Performed By: #### M G, PHOS, TSH, CMP ####[facility] Fiwatwwniy[address] [place], [place] [address]Dr. Villa Yanes Globulin (S) [Mass/Vol] 4.0 g/dL Normal [facility] Comment on above: Performed By: #### M G, PHOS, TSH, CMP ####[facility] Urnpitbpie[address] [place], [place] [address]Dr. Villa Yanes Glucose [Mass/Vol] 143 mg/dL Critically high 74-106 T [facility] Comment on above: Performed By: #### M G, PHOS, TSH, CMP ####[facility] C[address]xkb[address] [place], [place] [address]Dr. Villa Yanes Potassium [Moles/Vol] 4.9 mmol/L Normal 3.5-5.1 [facility] Comment on above: Performed By: #### M G, PHOS, TSH, CMP ####[facility] Luoaqmaz[address] [place], [place] [address]Dr. Villa Yanes Protein [Mass/Vol] 7.2 g/dL Normal 6.4-8.2 [facility] Comment on above: Performed By: #### M G, PHOS, TSH, CMP ####[facility] [address]yoxsymfru[address] [place], [place] [address]Dr. Villa Yanes Sodium [Moles/Vol] 139 mmol/L Normal 136-145 [facility] Comment on above: Performed By: #### M G, PHOS, TSH, CMP ####[facility] Iirt[address]nejcm[address] [place], [place] [address]Dr. Villa Yanes Urea nitrogen [Mass/Vol] 46.0 mg/dL Critically high 7.0-18.0 [facility] Comment on above: Performed By: #### M G, PHOS, TSH, CMP ####[facility] [address] [place], [place] [address]At. Villa Yanes Urea nitrogen/Creatinine [Mass ratio] 38.3 mg/mg Normal [facility] Comment on above: Performed By: #### M G, PHOS, TSH, CMP ####[facility] [address] [place], [place] [address]Ev. Villa Yanes TSHon 12-18-2021 TSH 0.279 uIU/mL Critically low 0.358-3.740 [facility] Comment on above: Performed By: #### M G, PHOS, TSH, CMP ####[facility] [address] [place], [place] [address]Gc. Villa Yanes CNPNon 12-13-2021 CNPN Normal [facility] Bacteria Ur Culton 2 Bacteria identified Cx Nom (U) Abnormal [facility] Comment on above: Performed By: #### 6 30-4 ####[facility] LABCLIA [id number] [address] [place] CNPNon 12-04-2021 CNPN Normal [facility] CT KIDNEY WO/W IVCONon 12-04 Radiology Result ACTIONABLE Abnormal [facility] CNPTOUTREACHon 12-03-2021 CNPTOUTREACH Normal [facility] CT KIDNEY WO/W IVCONon 12-02 CT KIDNEY WO/W IVCON Invalid Interpretation Code [facility] CNOVon 11-27-2021 CNOV Normal [facility] CNPNon 11-27-2021 CNPN Normal [facility] CNPTOUTREACHon 11-27-2021 CNPTOUTREACH Normal [facility] CASE MANAGEMon 11-20-2021 CASE MANAGEM Normal [facility] CBC panel Auto (Bld)on 11-20 Erythrocyte distribution width (RBC) [Ratio] 13.4 % Normal 11.5-15.0 [facility] Comment on above: Order Comment: Speci men Type: BLOOD SPECIMENOrdering Facility: [facility] Address: [address] [place], [place] [address] Performed By: #### 5 8410-2 ####[facility] LABCLIA [id number] [place] [address] [place] Hematocrit (Bld) [Volume fraction] 26.6 % Low 39.0-51.0 [facility] Comment on above: Order Comment: Speci men Type: BLOOD SPECIMENOrdering Facility: [facility] Address: [address] [place], [place] [address] Performed By: #### 5 8410-2 ####[facility] LABIA [id number] [address] [place] Hemoglobin (Bld) [Mass/Vol] 8.9 g/dL Low 13.0-17.0 [facility] Comment on above: Order Comment: Speci men Type: BLOOD SPECIMENOrdering Facility: [facility] Address: [address] [place], [place] [address] Performed By: #### 5 8410-2 ####[facility] LABIA [id number] [place] [address] [place] MCH (RBC) [Entitic mass] 30.9 pg Normal 26.0-34.0 [facility] Comment on above: Order Comment: Speci men Type: BLOOD SPECIMENOrdering Facility: [facility] Address: [address] [place], [place] [address] Performed By: #### 5 8410-2 ####[facility] LABCLIA [id number] [place] [address] [place] MCHC (RBC) [Mass/Vol] 33.5 g/dL Normal 30.5-36.0 [facility] Comment on above: Order Comment: Speci men Type: BLOOD SPECIMENOrdering Facility: [facility] Address: [address] [place], [place] [address] Performed By: #### 5 8410-2 ####[facility] LABCLIA [id number] [place] [address] [place] MCV (RBC) [Entitic vol] 92.4 fL Normal 80.0-100.0 [facility] Comment on above: Order Comment: Speci men Type: BLOOD SPECIMENOrdering Facility: [facility] Address: [address] [place], [place] [address] Performed By: #### 5 8410-2 ####[facility] LABIA [id number] [address] [place] Nucleated RBC (Bld) [#/Vol] 10*3/uL Normal <0.01 [facility] Comment on above: Order Comment: Speci men Type: BLOOD SPECIMENOrdering Facility: [facility] Address: [address] [place], [place] [address] Performed By: #### 5 8410-2 ####[facility] LABIA [id number] [address] [place] Platelet mean volume (Bld) [Entitic vol] 10.4 fL Normal 9.0-12.7 [facility] Comment on above: Order Comment: Speci men Type: BLOOD SPECIMENOrdering Facility: [facility] Address: [address] [place], [place] [address] Performed By: #### 5 8410-2 ####[facility] LABIA [id number] [place] [address] [place] Platelets (Bld) [#/Vol] 240 10*3/uL Normal 150-400 [facility] Comment on above: Order Comment: Speci men Type: BLOOD SPECIMENOrdering Facility: [facility] Address: [address] [place], [place] [address] Performed By: #### 5 8410-2 ####[facility] LABCLIA [id number] [place] [address] [place] RBC (Bld) [#/Vol] 2.88 10*6/uL Low 4.20-6.00 [facility] Comment on above: Order Comment: Speci men Type: BLOOD SPECIMENOrdering Facility: [facility] Address: [address] [place] [address] Performed By: #### 5 8410-2 ####[facility] LABCLIA [id number] [place] [address] [place] WBC (Bld) [#/Vol] 9.03 10*3/uL Normal 3.70-11.00 [facility] Comment on above: Order Comment: Speci men Type: BLOOD SPECIMENOrdering Facility: [facility] Address: [address] [place] [address] Performed By: #### 5 8410-2 ####[facility] LABCLIA [id number] [place] [address] [place] CNDSon 11-20-2021 CNDS Normal [facility] CNPNon 11-20-2021 CNPN Normal [facility] Magnesium SerPl-mCncon 11-20 Magnesium [Mass/Vol] 2.1 mg/dL Normal 1.7-2.[address] [facility] Comment on above: Order Comment: Speci men Type: BLOOD SPECIMENOrdering Facility: [facility] Address: [address] [place] [address] Performed By: #### 2 4362-6, 30458-7 ####[facility] LABCLIA [id number] [place] [address] [place] NURSING PROGon 11-20-2021 NURSING PROG Normal [facility] Renal function 2000 panelon 11-20-2021 Albumin [Mass/Vol] 2.5 g/dL Low 3.9-4.9 [facility] Comment on above: Order Comment: Speci men Type: BLOOD SPECIMENOrdering Facility: [facility] Address: [address] [place], [place] [address] Performed By: #### 2 4362-6 ####[facility] LABCLIA [id number] [facility] [address] [place] Anion gap [Moles/Vol] 6 mmol/L Low 9-18 [facility] Comment on above: Order Comment: Speci men Type: BLOOD SPECIMENOrdering Facility: [facility] Address: [address] [place], [place] [address] Performed By: #### 2 4362-6 ####[facility] LABCLIA [id number] [facility] [place] [address] [place] Calcium [Mass/Vol] 7.9 mg/dL Low 8.5-10.2 [facility] Comment on above: Order Comment: Speci men Type: BLOOD SPECIMENOrdering Facility: [facility] Address: [address] [place], [place] [address] Performed By: #### 2 4362-6 ####[facility] LABCLIA [id number] [place] [address] [place] Chloride [Moles/Vol] 101 mmol/L Normal 97-[address] [facility] Comment on above: Order Comment: Speci men Type: BLOOD SPECIMENOrdering Facility: [facility] Address: [address] [place] [address] Performed By: #### 2 4362-6 ####[facility] LABCLIA [id number] [place] [address] [place] CO2 [Moles/Vol] 30 mmol/L Normal 22-30 [facility] Comment on above: Order Comment: Speci men Type: BLOOD SPECIMENOrdering Facility: [facility] Address: [address] [place] [address] Performed By: #### 2 4362-6 ####[facility] LABCLIA [id number] [place] [address] [place] Creatinine [Mass/Vol] 1.15 mg/dL Normal 0.73-1.22 [facility] Comment on above: Order Comment: Misbah padilla Type: BLOOD SPECIMENOrdering Facility: [facility] Address: [address] [phone] Performed By: #### 2 4362-6 ####[facility] LABCLIA [id number] [place] [address] [place] ESTIMATED GLOMERULAR FILTRATION RATE 65 mL/min/1.73m??? Normal >=60 [facility] Comment on above: Order Comment: Misbah padilla Type: BLOOD SPECIMENOrdering Facility: [facility] Address: [address] Result Comment: Sandra mated Glomerular Filtration Rate (eGFR) is calculated using the 2020 CKD-EPI creatinine equation. This equation utilizes serum creatinine, sex, and age as parameters. The creatinine assay has traceable calibration to isotope dilution-mass spectrometry. Refer to KDIGO guidelines for clinical interpretation. In patients with unstable renal function, e.g. those with acute kidney injury, the eGFR may not accurately reflect actual GFR. Performed By: #### 2 4362-6 ####[facility] LABCLIA [id number] [place] [address] [place] Glucose [Mass/Vol] 135 mg/dL High 74-99 [facility] Comment on above: Order Comment: Misbah valerie Type: BLOOD SPECIMENOrdering Facility: [facility] Address: [address] Result Comment: The [place] [employer] (ADA) provides guidance for cutoff values for fasting glucose and random glucose. The ADA defines fasting as no caloric intake for at least 8 hours. Fasting plasma glucose results between 100 to 125 mg/dL indicate increased risk for diabetes (prediabetes).Fasting plasma glucose results greater than or equal to 126 mg/dL meet the criteria for diagnosis of diabetes. In the absence of unequivocal hyperglycemia, results should be confirmed by repeat testing. In a patient with classic symptoms of hyperglycemia or hyperglycemic crisis, random plasma glucose results greater than or equal to 200 mg/dL meet the criteria for diagnosis of diabetes.Reference: Standards of Medical Care in Diabetes 2016, [place] [employer]. Diabetes Care. 2016.39(Suppl 1). Performed By: #### 2 4362-6 ####[facility] LABCLIA [id number] [place] [address] [place] Phosphate [Mass/Vol] 3.8 mg/dL Normal 2.7-4.[address] [facility] Comment on above: Order Comment: Speci men Type: BLOOD SPECIMENOrdering Facility: [facility] Address: [address] [place], [place] [address] Performed By: #### 2 4362-6 ####[facility] LABIA [id number] [place] [address] [place] Potassium [Moles/Vol] 4.1 mmol/L Normal 3.7-5.1 [facility] Comment on above: Order Comment: Speci men Type: BLOOD SPECIMENOrdering Facility: [facility] Address: [address] [place] [address] Performed By: #### 2 4362-6 ####[facility] LABIA [id number] [place] [address] [place] Sodium [Moles/Vol] 137 mmol/L Normal 136-144 [facility] Comment on above: Order Comment: Speci men Type: BLOOD SPECIMENOrdering Facility: [facility] Address: [address] [place], [place] [address] Performed By: #### 2 4362-6 ####[facility] LABIA [id number] [place] [address] [place] Urea nitrogen [Mass/Vol] 17 mg/dL Normal 9-24 [facility] Comment on above: Order Comment: Speci men Type: BLOOD SPECIMENOrdering Facility: [facility] Address: [address] [place] [address] Performed By: #### 2 4362-6 ####[facility] LABIA [id number] [place] [address] [place] Albumin [Mass/Vol] 2.5 g/dL Low 3.9-4.9 [facility] Comment on above: Order Comment: Speci men Type: BLOOD SPECIMENOrdering Facility: [facility] Address: [address] [place], [place] [address] Performed By: #### 2 4362-6, ####[facility] LABCLIA [id number] [place] [address] [place] Anion gap [Moles/Vol] 7 mmol/L Low 9-18 [facility] Comment on above: Order Comment: Speci men Type: BLOOD SPECIMENOrdering Facility: [facility] Address: [address] [place], [place] [address] Performed By: #### 2 4362-6, ####[facility] LABCLIA [id number] [place] [address] [place] Calcium [Mass/Vol] 8.2 mg/dL Low 8.5-10.2 [facility] Comment on above: Order Comment: Speci men Type: BLOOD SPECIMENOrdering Facility: [facility] Address: [address] [place], [place] [address] Performed By: #### 2 4362-6, ####[facility] LABCLIA [id number] [place] [address] [place] Chloride [Moles/Vol] 104 mmol/L Normal 97-[address] [facility] Comment on above: Order Comment: Speci men Type: BLOOD SPECIMENOrdering Facility: [facility] Address: [address] [place], [place] [address] Performed By: #### 2 4362-6, ####[facility] LABCLIA [id number] [place] [id number] [place] CO2 [Moles/Vol] 28 mmol/L Normal 22-30 [facility] Comment on above: Order Comment: Speci men Type: BLOOD SPECIMENOrdering Facility: [facility] Address: [address] [place], [place] [phone] Performed By: #### 2 4362-6, ####[facility] LABCLIA [id number] [place] [id number] [place] Creatinine [Mass/Vol] 1.22 mg/dL Normal 0.73-1.22 [facility] Comment on above: Order Comment: Speci men Type: BLOOD SPECIMENOrdering Facility: [facility] Address: [address] [place], [place] [address] Performed By: #### 2 4362-6, ####[facility] LABIA [id number] [place] [address] [place] ESTIMATED GLOMERULAR FILTRATION RATE 60 mL/min/1.73m??? Normal >=60 [facility] Comment on above: Order Comment: Speci men Type: BLOOD SPECIMENOrdering Facility: [facility] Address: [address] [place], [place] [address] Result Comment: Sandra mated Glomerular Filtration Rate (eGFR) is calculated using the 2020 CKD-EPI creatinine equation. This equation utilizes serum creatinine, sex, and age as parameters. The creatinine assay has traceable calibration to isotope dilution-mass spectrometry. Refer to KDIGO guidelines for clinical interpretation. In patients with unstable renal function, e.g. those with acute kidney injury, the eGFR may not accurately reflect actual GFR. Performed By: #### 2 4362-6, ####[facility] LABIA [id number] [place] [address] [place] Glucose [Mass/Vol] 177 mg/dL High 74-99 [facility] Comment on above: Order Comment: Speci men Type: BLOOD SPECIMENOrdering Facility: [facility] Address: [address] [place], [place] [id number] Result Comment: The [place] Diabetes Association (ADA) provides guidance for cutoff values for fasting glucose and random glucose. The ADA defines fasting as no caloric intake for at least 8 hours. Fasting plasma glucose results between 100 to 125 mg/dL indicate increased risk for diabetes (prediabetes).Fasting plasma glucose results greater than or equal to 126 mg/dL meet the criteria for diagnosis of diabetes. In the absence of unequivocal hyperglycemia, results should be confirmed by repeat testing. In a patient with classic symptoms of hyperglycemia or hyperglycemic crisis, random plasma glucose results greater than or equal to 200 mg/dL meet the criteria for diagnosis of diabetes.Reference: Standards of Medical Care in Diabetes 2016, [place] [employer]. Diabetes Care. 2016.39(Suppl 1). Performed By: #### 2 4362-6, ####[facility] LABIA [id number] [place] [address] [place] Phosphate [Mass/Vol] 2.0 mg/dL Low 2.7-4.[address] [facility] Comment on above: Order Comment: Speci men Type: BLOOD SPECIMENOrdering Facility: [facility] Address: [address] [place], [place] [address] Performed By: #### 2 4362-6, ####[facility] LABIA [id number] [place] [address] [place] Potassium [Moles/Vol] 3.8 mmol/L Normal 3.7-5.1 [facility] Comment on above: Order Comment: Speci men Type: BLOOD SPECIMENOrdering Facility: [facility] Address: [address] [place], [place] [address] Performed By: #### 2 4362-6, ####[facility] LABIA [id number] [place] [address] [place] Sodium [Moles/Vol] 139 mmol/L Normal 136-144 [facility] Comment on above: Order Comment: Speci men Type: BLOOD SPECIMENOrdering Facility: [facility] Address: [address] [place], [place] [address] Performed By: #### 2 4362-6, ####[facility] LABCLIA [id number] [place] [address] [place] Urea nitrogen [Mass/Vol] 16 mg/dL Normal 9-24 [facility] Comment on above: Order Comment: Speci men Type: BLOOD SPECIMENOrdering Facility: [facility] Address: [address] [place], [place] [address] Performed By: #### 2 4362-6, ####[facility] LABCLIA [id number] [place] [address] [place] THERAPY NTon 11-20-2021 THERAPY NT Normal [facility] CASE MANAGEMon 11-19-2021 CASE MANAGEM Normal [facility] CBC panel Auto (Bld)on 11-19 Erythrocyte distribution width (RBC) [Ratio] 13.3 % Normal 11.5-15.0 [facility] Comment on above: Order Comment: Speci men Type: BLOOD SPECIMENOrdering Facility: [facility] Address: [address] [place], [place] [address] Performed By: #### 5 8410-2 ####[facility] LABIA [id number] [place] [address] [place] Hematocrit (Bld) [Volume fraction] 28.3 % Low 39.0-51.0 [facility] Comment on above: Order Comment: Speci men Type: BLOOD SPECIMENOrdering Facility: [facility] Address: [address] [place], [place] [address] Performed By: #### 5 8410-2 ####[facility] LABCLIA [id number] [place] [address] [place] Hemoglobin (Bld) [Mass/Vol] 9.1 g/dL Low 13.0-17.0 [facility] Comment on above: Order Comment: Speci men Type: BLOOD SPECIMENOrdering Facility: [facility] Address: [address] [place] [address] Performed By: #### 5 8410-2 ####[facility] LABIA [id number] [address] [place] [facility] MCH (RBC) [Entitic mass] 30.2 pg Normal 26.0-34.0 [facility] Comment on above: Order Comment: Speci men Type: BLOOD SPECIMENOrdering Facility: [facility] Address: [address] [place], [place] [address] Performed By: #### 5 8410-2 ####[facility]IA [id number] [address] MCHC (RBC) [Mass/Vol] 32.2 g/dL Normal 30.5-36.0 [facility] Comment on above: Order Comment: Speci men Type: BLOOD SPECIMENOrdering Facility: [facility] Address: [address] [place], [place] [address] Performed By: #### 5 8410-2 ####[facility] [id number] [address] [place] MCV (RBC) [Entitic vol] 94.0 fL Normal 80.0-100.0 [facility] Comment on above: Order Comment: Speci men Type: BLOOD SPECIMENOrdering Facility: [facility] Address: [address] [place] [address] Performed By: #### 5 8410-2 ####[facility] [id number] [address] [place] Nucleated RBC (Bld) [#/Vol] 10*3/uL Normal <0.01 [facility] Comment on above: Order Comment: Speci men Type: BLOOD SPECIMENOrdering Facility: [facility] Address: [address] [place], [place] [address] Performed By: #### 5 8410-2 ####[facility] LABCLIA [id number] [place] [address] [place] Platelet mean volume (Bld) [Entitic vol] 10.2 fL Normal 9.0-12.7 [facility] Comment on above: Order Comment: Speci men Type: BLOOD SPECIMENOrdering Facility: [facility] Address: [address] [place], [place] [address] Performed By: #### 5 8410-2 ####[facility] [id number] [place] [address] [place] Platelets (Bld) [#/Vol] 262 10*3/uL Normal 150-400 [facility] Comment on above: Order Comment: Speci men Type: BLOOD SPECIMENOrdering Facility: [facility] Address: [address] [place], [place] [address] Performed By: #### 5 8410-2 ####[facility] [id number] [place] [address] [place] RBC (Bld) [#/Vol] 3.01 10*6/uL Low 4.20-6.00 [facility] Comment on above: Order Comment: Speci men Type: BLOOD SPECIMENOrdering Facility: [facility] Address: [address] [place] [address] Performed By: #### 5 8410-2 ####[facility] [id number] [place] [address] [place] WBC (Bld) [#/Vol] 9.65 10*3/uL Normal 3.70-11.00 [facility] Comment on above: Order Comment: Speci men Type: BLOOD SPECIMENOrdering Facility: [facility] Address: [address] [place], [place] [address] Performed By: #### 5 8410-2 ####[facility] [id number] [place] [address] [place] Magnesium SerPl-mCncon 06-29 -2022 Magnesium [Mass/Vol] 2.2 mg/dL Normal 1.7-2.[address] [facility] Comment on above: Order Comment: Speci men Type: BLOOD SPECIMENOrdering Facility: [facility] Address: [address] [place] [address] Performed By: #### 1 9123-9, 80226-4 ####[facility] LABCLIA [id number] [place] [address] [place] NUTRITIONon 11-19-2021 NUTRITION Normal [facility] PT EDon 11-19-2021 PT ED Normal [facility] Renal function 2000 panelon 11-19-2021 Albumin [Mass/Vol] 2.4 g/dL Low 3.9-4.9 [facility] Comment on above: Order Comment: Speci men Type: BLOOD SPECIMENOrdering Facility: [facility] Address: [address] [place] [address] Performed By: #### 1 9123-9, 38163-8 ####[facility] LABCLIA [id number] [place] [address] [place] Anion gap [Moles/Vol] 7 mmol/L Low 9-18 [facility] Comment on above: Order Comment: Speci men Type: BLOOD SPECIMENOrdering Facility: [facility] Address: [address] [place], [place] [address] Performed By: #### 1 9123-9, 27192-9 ####[facility] LABCLIA [id number] [facility] [place] [address] [place] Calcium [Mass/Vol] 8.5 mg/dL Normal 8.5-10.2 [facility] Comment on above: Order Comment: Speci men Type: BLOOD SPECIMENOrdering Facility: [facility] Address: [address] [place], [place] [address] Performed By: #### 1 9123-9, 70621-9 ####[facility] LABCLIA [id number] [place] [address] [place] Chloride [Moles/Vol] 105 mmol/L Normal 97-[address] [facility] Comment on above: Order Comment: Speci men Type: BLOOD SPECIMENOrdering Facility: [facility] Address: [address] [place] [address] Performed By: #### 1 9123-9, 28258-1 ####[facility] LABCLIA [id number] [place] [address] [place] CO2 [Moles/Vol] 27 mmol/L Normal 22-30 [facility] Comment on above: Order Comment: Speci men Type: BLOOD SPECIMENOrdering Facility: [facility] Address: [address] [place] [address] Performed By: #### 1 9123-9, 03608-8 ####[facility] [id number] [address] STATES OF [facility] Creatinine [Mass/Vol] 1.22 mg/dL Normal 0.73-1.22 [facility] Comment on above: Order Comment: Speci men Type: BLOOD SPECIMENOrdering Facility: [facility] Address: [address] [place] [address] Performed By: #### 1 9123-9, 74920-2 ####[facility] [id number] [address] OF [facility] ESTIMATED GLOMERULAR FILTRATION RATE 60 mL/min/1.73m??? Normal >=60 [facility] Comment on above: Order Comment: Speci men Type: BLOOD SPECIMENOrdering Facility: [facility] Address: [address] [place] [address] Result Comment: Sandra mated Glomerular Filtration Rate (eGFR) is calculated using the 2020 CKD-EPI creatinine equation. This equation utilizes serum creatinine, sex, and age as parameters. The creatinine assay has traceable calibration to isotope dilution-mass spectrometry. Refer to KDIGO guidelines for clinical interpretation. In patients with unstable renal function, e.g. those with acute kidney injury, the eGFR may not accurately reflect actual GFR. Performed By: #### 1 9123-9, 17702-4 ####[facility] LABCLIA [id number] [address] [address] [place] Glucose [Mass/Vol] 146 mg/dL High 74-99 [facility] Comment on above: Order Comment: Misbah padilla Type: BLOOD SPECIMENOrdering Facility: [facility] Address: [address] [place] [address] Result Comment: The [place] [employer] (ADA) provides guidance for cutoff values for fasting glucose and random glucose. The ADA defines fasting as no caloric intake for at least 8 hours. Fasting plasma glucose results between 100 to 125 mg/dL indicate increased risk for diabetes (prediabetes).Fasting plasma glucose results greater than or equal to 126 mg/dL meet the criteria for diagnosis of diabetes. In the absence of unequivocal hyperglycemia, results should be confirmed by repeat testing. In a patient with classic symptoms of hyperglycemia or hyperglycemic crisis, random plasma glucose results greater than or equal to 200 mg/dL meet the criteria for diagnosis of diabetes.Reference: Standards of Medical Care in Diabetes 2016, [place] [employer]. Diabetes Care. 2016.39(Suppl 1). Performed By: #### 1 9123-9, 04572-3 ####[facility] LABCLIA [id number] [address] [address] [place] Phosphate [Mass/Vol] 3.0 mg/dL Normal 2.7-4.[address] [facility] Comment on above: Order Comment: Misbah padilla Type: BLOOD SPECIMENOrdering Facility: [facility] Address: [address] [place] [address] Performed By: #### 1 9123-9, 70101-8 ####[facility] [id number] [address] [address] [place] Potassium [Moles/Vol] 4.1 mmol/L Normal 3.7-5.1 [facility] Comment on above: Order Comment: Speci men Type: BLOOD SPECIMENOrdering Facility: [facility] Address: [address] [place], [place] [address] Performed By: #### 1 9123-9, 17739-4 ####[facility] LABCLIA [id number] [place] [address] [place] Sodium [Moles/Vol] 139 mmol/L Normal 136-144 [facility] Comment on above: Order Comment: Speci men Type: BLOOD SPECIMENOrdering Facility: [facility] Address: [address] [place], [place] [address] Performed By: #### 1 9123-9, 80862-4 ####[facility] LABCLIA [id number] [address] [place] Urea nitrogen [Mass/Vol] 10 mg/dL Normal 9-24 [facility] Comment on above: Order Comment: Speci men Type: BLOOD SPECIMENOrdering Facility: [facility] Address: [address] [place], [place] [address] Performed By: #### 1 9123-9, 00567-6 ####[facility] LABCLIA [id number] [place] [address] [place] THERAPY NTon 11-19-2021 THERAPY NT Normal [facility] CASE MANAGEMon 11-18-2021 CASE MANAGEM Normal [facility] CBC panel Auto (Bld)on 11-18 Erythrocyte distribution width (RBC) [Ratio] 13.4 % Normal 11.5-15.0 [facility] Comment on above: Order Comment: Speci men Type: BLOOD SPECIMENOrdering Facility: [facility] Address: [address] [place], [place] [address] Performed By: #### 5 8410-2 ####[facility]CLIA [id number] [address] [place] Hematocrit (Bld) [Volume fraction] 28.5 % Low 39.0-51.0 [facility] Comment on above: Order Comment: Speci men Type: BLOOD SPECIMENOrdering Facility: [facility] Address: [address] [place] [address] Performed By: #### 5 8410-2 ####[facility] LABCLIA [id number] [place] [address] [place] Hemoglobin (Bld) [Mass/Vol] 9.0 g/dL Low 13.0-17.0 [facility] Comment on above: Order Comment: Speci men Type: BLOOD SPECIMENOrdering Facility: [facility] Address: [address] [place] [address] Performed By: #### 5 8410-2 ####[facility] LABCLIA [id number] [place] [address] [place] MCH (RBC) [Entitic mass] 30.4 pg Normal 26.0-34.0 [facility] Comment on above: Order Comment: Speci men Type: BLOOD SPECIMENOrdering Facility: [facility] Address: [address] [place] [address] Performed By: #### 5 8410-2 ####[facility] [id number] [place] [address] [place] MCHC (RBC) [Mass/Vol] 31.6 g/dL Normal 30.5-36.0 [facility] Comment on above: Order Comment: Speci men Type: BLOOD SPECIMENOrdering Facility: [facility] Address: [address] [place], [place] [address] Performed By: #### 5 8410-2 ####[facility] LABCLIA [id number] [place] [address] [place] MCV (RBC) [Entitic vol] 96.3 fL Normal 80.0-100.0 [facility] Comment on above: Order Comment: Speci men Type: BLOOD SPECIMENOrdering Facility: [facility] Address: [address] [place], [place] [address] Performed By: #### 5 8410-2 ####[facility]IA [id number] [place] [address] [place] [facility] Nucleated RBC (Bld) [#/Vol] 10*3/uL Normal <0.01 [facility] Comment on above: Order Comment: Speci men Type: BLOOD SPECIMENOrdering Facility: [facility] Address: [address] [place], [place] [address] Performed By: #### 5 8410-2 ####[facility] [id number] [place] [address] [place] Platelet mean volume (Bld) [Entitic vol] 10.3 fL Normal 9.0-12.7 [facility] Comment on above: Order Comment: Speci men Type: BLOOD SPECIMENOrdering Facility: [facility] Address: [address] [place], [place] [address] Performed By: #### 5 8410-2 ####[facility] [id number] [address] [place] Platelets (Bld) [#/Vol] 228 10*3/uL Normal 150-400 [facility] Comment on above: Order Comment: Speci men Type: BLOOD SPECIMENOrdering Facility: [facility] Address: [address] [place] [address] Performed By: #### 5 8410-2 ####[facility] [id number] [place] [address] [place] RBC (Bld) [#/Vol] 2.96 10*6/uL Low 4.20-6.00 [facility] Comment on above: Order Comment: Speci men Type: BLOOD SPECIMENOrdering Facility: [facility] Address: [address] [place], [place] [address] Performed By: #### 5 8410-2 ####[facility] LABCLIA [id number] [place] [address] [place] WBC (Bld) [#/Vol] 8.72 10*3/uL Normal 3.70-11.00 [facility] Comment on above: Order Comment: Speci men Type: BLOOD SPECIMENOrdering Facility: [facility] Address: [address] [place] [address] Performed By: #### 5 8410-2 ####[facility] LABCLIA [id number] [place] [address] [place] Magnesium SerPl-[facility] 11-18 Magnesium [Mass/Vol] 1.7 mg/dL Normal 1.7-2.[address] [facility] Comment on above: Order Comment: Speci men Type: BLOOD SPECIMENOrdering Facility: [facility] Address: [address] [place], [place] [address] Performed By: #### 1 9123-9, 2777-1, 98330-5 ####[facility] [id number] [place] [address] [place] NURSING PROGon 11-18-2021 NURSING PROG Normal [facility] Phosphate SerPl-mCncon 11-18 Phosphate [Mass/Vol] 3.7 mg/dL Normal 2.7-4.[address] [facility] Comment on above: Order Comment: Speci men Type: BLOOD SPECIMENOrdering Facility: [facility] Address: [address] [place] [address] Performed By: #### 1 9123-9, 2777-1, 14337-9 ####[facility] [id number] [place] [address] [place] Renal function 2000 panelon 11-18-2021 Albumin [Mass/Vol] 2.2 g/dL Low 3.9-4.9 [facility] Comment on above: Order Comment: Speci men Type: BLOOD SPECIMENOrdering Facility: [facility] Address: [address] [place], [place] [address] Performed By: #### 1 9123-9, 2777-, 46182-8 ####[facility] LABCLIA [id number] [place] [address] [place] Anion gap [Moles/Vol] 11 mmol/L Normal 9-18 [facility] Comment on above: Order Comment: Speci men Type: BLOOD SPECIMENOrdering Facility: [facility] Address: [address] [place], [place] [address] Performed By: #### 1 9123-9, 2777-1, 98586-2 ####[facility] LABCLIA [id number] [place] [address] [place] Calcium [Mass/Vol] 8.9 mg/dL Normal 8.5-10.2 [facility] Comment on above: Order Comment: Speci men Type: BLOOD SPECIMENOrdering Facility: [facility] Address: [address] [place], [place] [address] Performed By: #### 1 9123-9, 2777-, 30603-2 ####[facility]CLIA [id number] [place] [address] [place] Chloride [Moles/Vol] 107 mmol/L High 97-[address] [facility] Comment on above: Order Comment: Speci men Type: BLOOD SPECIMENOrdering Facility: [facility] Address: [address] [place], [place] [address] Performed By: #### 1 9123-9, 2777-1, 15993-0 ####[facility] LABCLIA [id number] [place] [id number] [place] CO2 [Moles/Vol] 23 mmol/L Normal 22-30 [facility] Comment on above: Order Comment: Speci men Type: BLOOD SPECIMENOrdering Facility: [facility] Address: [address] [place] [id number] Performed By: #### 1 9123-9, 2777-, 76385-5 ####[facility] [id number] [place] [address] [place] Creatinine [Mass/Vol] 1.14 mg/dL Normal 0.73-1.22 [facility] Comment on above: Order Comment: Speci men Type: BLOOD SPECIMENOrdering Facility: [facility] Address: [address] [place], [place] [address] Performed By: #### 1 9123-9, 2777-, 14850-8 ####[facility] [id number] [place] [address] [place] ESTIMATED GLOMERULAR FILTRATION RATE 65 mL/min/1.73m??? Normal >=60 [facility] Comment on above: Order Comment: Speci men Type: BLOOD SPECIMENOrdering Facility: [facility] Address: [address] [place] [address] Result Comment: Sandra mated Glomerular Filtration Rate (eGFR) is calculated using the 2020 CKD-EPI creatinine equation. This equation utilizes serum creatinine, sex, and age as parameters. The creatinine assay has traceable calibration to isotope dilution-mass spectrometry. Refer to KDIGO guidelines for clinical interpretation. In patients with unstable renal function, e.g. those with acute kidney injury, the eGFR may not accurately reflect actual GFR. Performed By: #### 1 9123-9, 2777-, 69977-4 ####[facility] [id number] [place] [id number] [place] Glucose [Mass/Vol] 89 mg/dL Normal 74-99 [facility] Comment on above: Order Comment: Speci men Type: BLOOD SPECIMENOrdering Facility: [facility] Address: [address] [place], [place] [address] Result Comment: The [place] Diabetes [employer] (ADA) provides guidance for cutoff values for fasting glucose and random glucose. The ADA defines fasting as no caloric intake for at least 8 hours. Fasting plasma glucose results between 100 to 125 mg/dL indicate increased risk for diabetes (prediabetes).Fasting plasma glucose results greater than or equal to 126 mg/dL meet the criteria for diagnosis of diabetes. In the absence of unequivocal hyperglycemia, results should be confirmed by repeat testing. In a patient with classic symptoms of hyperglycemia or hyperglycemic crisis, random plasma glucose results greater than or equal to 200 mg/dL meet the criteria for diagnosis of diabetes.Reference: Standards of Medical Care in Diabetes 2016, [place] [employer]. Diabetes Care. 2016.39(Suppl 1). Performed By: #### 1 9123-9, 2777-1, 03803-7 ####[facility] [id number] [place] [address] [place] Phosphate [Mass/Vol] 3.8 mg/dL Normal 2.7-4.[address] [facility] Comment on above: Order Comment: Speci men Type: BLOOD SPECIMENOrdering Facility: [facility] Address: [address] [place] [address] Performed By: #### 1 9123-9, 2777-1, 07968-9 ####[facility] [id number] [place] [address] [place] Potassium [Moles/Vol] 4.2 mmol/L Normal 3.7-5.1 [facility] Comment on above: Order Comment: Speci men Type: BLOOD SPECIMENOrdering Facility: [facility] Address: [address] [place], [place] [phone] Performed By: #### 1 9123-9, 2777-1, 90920-3 ####[facility] [id number] [place] [address] [place] Sodium [Moles/Vol] 141 mmol/L Normal 136-144 [facility] Comment on above: Order Comment: Speci men Type: BLOOD SPECIMENOrdering Facility: [facility] Address: [address] Performed By: #### 1 9123-9, 2777-1, 91649-3 ####[facility]CLIA [id number] [place] [address] [place] Urea nitrogen [Mass/Vol] 5 mg/dL Low 9-24 [facility] Comment on above: Order Comment: Speci men Type: BLOOD SPECIMENOrdering Facility: [facility] Address: [address] [place] [address] Performed By: #### 1 9123-9, 2777-1, 20652-2 ####[facility] [id number] [place] [address] [place] THERAPY NTon 11-18-2021 THERAPY NT Normal [facility] XR ABDOMEN 1V SUPINEon 11-18 XR ABDOMEN 1V SUPINE [facility] XR ABDOMEN 1V SUPINE Normal [facility] ANES POSTPROC EVALon 022 ANES POSTPROC EVAL Normal [facility] ANES PRE-OPon 11-17-2021 ANES PRE-OP Normal [facility] BRIEF OP NOTon 11-17-2021 BRIEF OP NOT Normal [facility] CASE MANAGEMon 11-17-2021 CASE MANAGEM Normal [facility] CBC panel Auto (Bld)on 11-17 Erythrocyte distribution width (RBC) [Ratio] 13.4 % Normal 11.5-15.0 [facility] Comment on above: Order Comment: Speci men Type: BLOOD SPECIMENOrdering Facility: [facility] Address: [address] [place], [place] [id number] Performed By: #### 5 8410-2 ####[facility] [id number] [place] [address] [place] Hematocrit (Bld) [Volume fraction] 24.8 % Low 39.0-51.0 [facility] Comment on above: Order Comment: Speci men Type: BLOOD SPECIMENOrdering Facility: [facility] Address: [address] [place] [id number] Performed By: #### 5 8410-2 ####[facility] [id number] [place] [address] [place] Hemoglobin (Bld) [Mass/Vol] 8.0 g/dL Low 13.0-17.0 [facility] Comment on above: Order Comment: Speci men Type: BLOOD SPECIMENOrdering Facility: [facility] Address: [address] [place], [place] [address] Performed By: #### 5 8410-2 ####[facility] [id number] [address] [place] MCH (RBC) [Entitic mass] 30.2 pg Normal 26.0-34.0 [facility] Comment on above: Order Comment: Speci men Type: BLOOD SPECIMENOrdering Facility: [facility] Address: [address] [place], [place] [address] Performed By: #### 5 8410-2 ####[facility] [id number] [address] [place] MCHC (RBC) [Mass/Vol] 32.3 g/dL Normal 30.5-36.0 [facility] Comment on above: Order Comment: Speci men Type: BLOOD SPECIMENOrdering Facility: [facility] Address: [address] [place] [address] Performed By: #### 5 8410-2 ####[facility] [id number] [place] [address] [place] MCV (RBC) [Entitic vol] 93.6 fL Normal 80.0-100.0 [facility] Comment on above: Order Comment: Speci men Type: BLOOD SPECIMENOrdering Facility: [facility] Address: [address] [place], [place] [address] Performed By: #### 5 8410-2 ####[facility] [id number] [place] [address] [place] Nucleated RBC (Bld) [#/Vol] 10*3/uL Normal <0.01 [facility] Comment on above: Order Comment: Speci men Type: BLOOD SPECIMENOrdering Facility: [facility] Address: [address] [place], [place] [address] Performed By: #### 5 8410-2 ####[facility] [id number] [place] [address] [place] Platelet mean volume (Bld) [Entitic vol] 10.1 fL Normal 9.0-12.7 [facility] Comment on above: Order Comment: Speci men Type: BLOOD SPECIMENOrdering Facility: [facility] Address: [address] [place] [address] Performed By: #### 5 8410-2 ####[facility] [id number] [place] [address] [place] Platelets (Bld) [#/Vol] 235 10*3/uL Normal 150-400 [facility] Comment on above: Order Comment: Speci men Type: BLOOD SPECIMENOrdering Facility: [facility] Address: [address] [place], [place] [address] Performed By: #### 5 8410-2 ####[facility] [id number] [place] [address] [place] RBC (Bld) [#/Vol] 2.65 10*6/uL Low 4.20-6.00 [facility] Comment on above: Order Comment: Speci men Type: BLOOD SPECIMENOrdering Facility: [facility] Address: [address] [place] [address] Performed By: #### 5 8410-2 ####[facility] [id number] [place] [address] [place] WBC (Bld) [#/Vol] 9.08 10*3/uL Normal 3.70-11.00 [facility] Comment on above: Order Comment: Speci men Type: BLOOD SPECIMENOrdering Facility: [facility] Address: [address] [place] [address] Performed By: #### 5 8410-2 ####[facility] LABCLIA [id number] [address] [facility] OPERATIVE NOon 11-17-2021 OPERATIVE NO Normal [facility] PT panel Coag (PPP)on 2021 INR Coag (PPP) [Relative time] 1.2 {INR} Normal 0.9-1.3 [facility] Comment on above: Order Comment: Misbah valerie Type: BLOOD SPECIMENOrdering Facility: [facility] Address: [address] [place] [address] Result Comment: Pippa min K Antagonist (VKA) Therapeutic Range: INR 2 to 3 (Target INR of 2.5)Note: For patients treated with VKA drugs, such as warfarin, the [place] [employer] 2012 Guideline recommends a therapeutic INR range of 2 to 3 (target INR of 2.5). This recommendation includes high-risk patients with antiphospholipid syndrome with previous arterial or venous thromboembolism, current-generation mechanical or bioprosthetic aortic heart valve replacement.Note: Patients with mechanical aortic valve replacement and additional risk factors for thromboembolic events (atrial fibrillation, previous thromboembolism, LV dysfunction, hypercoagulable conditions) or an older generation mechanical AVR (i.e., ball in-Cage) or any mechanical MVR should have a INR therapeutic range of 2.5 to 3.5 (target INR of 3).Porfirio GH, et al. Chest 2012, 141:7S-47SNishimura RA, et al. [facility] 2017, 70: 252-289 Performed By: #### 3 4528-0 ####[facility] LABCLIA [id number] [place] [address] [place] PT Coag (PPP) [Time] 12.1 s Normal 9.7-13.[address] [facility] Comment on above: Order Comment: Speci men Type: BLOOD SPECIMENOrdering Facility: [facility] Address: [address] [place], [place] [address] Performed By: #### 3 4528-0 ####[facility]CLIA [id number] [place] [address] [place] PTT, ANTICOAGULANT THERAPYon 11-17-2021 aPTT Coag (PPP) [Time] 74.7 s High 23.0-32.4 [facility] Comment on above: Order Comment: Speci men Type: BLOOD SPECIMENOrdering Facility: [facility] Address: [address] [place] [address] Performed By: #### P TTAC ####[facility] LABCLIA [id number] [place] [address] [place] Renal function 2000 panelon 11-17-2021 Albumin [Mass/Vol] 2.3 g/dL Low 3.9-4.9 [facility] Comment on above: Order Comment: Speci men Type: BLOOD SPECIMENOrdering Facility: [facility] Address: [address] [place], [place] [address] Performed By: #### 2 4362-6 ####[facility] [id number] [place] [address] [place] Anion gap [Moles/Vol] 7 mmol/L Low 9-18 [facility] Comment on above: Order Comment: Speci men Type: BLOOD SPECIMENOrdering Facility: [facility] Address: [address] [place], [place] [address] Performed By: #### 2 4362-6 ####[facility] [id number] [place] [address] [place] Calcium [Mass/Vol] 8.5 mg/dL Normal 8.5-10.2 [facility] Comment on above: Order Comment: Speci men Type: BLOOD SPECIMENOrdering Facility: [facility] Address: [address] [place], [place] [address] Performed By: #### 2 4362-6 ####[facility] LABCLIA [id number] [place] [address] [place] Chloride [Moles/Vol] 108 mmol/L High 97-[address] [facility] Comment on above: Order Comment: Speci men Type: BLOOD SPECIMENOrdering Facility: [facility] Address: [address] [place], [place] [address] Performed By: #### 2 4362-6 ####[facility] LABCLIA [id number] [place] [address] [place] CO2 [Moles/Vol] 25 mmol/L Normal 22-30 [facility] Comment on above: Order Comment: Speci men Type: BLOOD SPECIMENOrdering Facility: [facility] Address: [address] [place], [place] [address] Performed By: #### 2 4362-6 ####[facility] [id number] [place] [address] [place] Creatinine [Mass/Vol] 1.04 mg/dL Normal 0.73-1.22 [facility] Comment on above: Order Comment: Speci men Type: BLOOD SPECIMENOrdering Facility: [facility] Address: [address] [place], [place] [address] Performed By: #### 2 4362-6 ####[facility] [id number] [place] [address] [place] ESTIMATED GLOMERULAR FILTRATION RATE 73 mL/min/1.73m??? Normal >=60 [facility] Comment on above: Order Comment: Speci men Type: BLOOD SPECIMENOrdering Facility: [facility] Address: [address] [place], [place] [address] Result Comment: Sandra mated Glomerular Filtration Rate (eGFR) is calculated using the 2020 CKD-EPI creatinine equation. This equation utilizes serum creatinine, sex, and age as parameters. The creatinine assay has traceable calibration to isotope dilution-mass spectrometry. Refer to KDIGO guidelines for clinical interpretation. In patients with unstable renal function, e.g. those with acute kidney injury, the eGFR may not accurately reflect actual GFR. Performed By: #### 2 4362-6 ####[facility] LABCLIA [id number] [address] [address] [place] Glucose [Mass/Vol] 117 mg/dL High 74-99 [facility] Comment on above: Order Comment: Speci men Type: BLOOD SPECIMENOrdering Facility: [facility] Address: [address] [place] [address] Result Comment: The [place] [employer] (ADA) provides guidance for cutoff values for fasting glucose and random glucose. The ADA defines fasting as no caloric intake for at least 8 hours. Fasting plasma glucose results between 100 to 125 mg/dL indicate increased risk for diabetes (prediabetes).Fasting plasma glucose results greater than or equal to 126 mg/dL meet the criteria for diagnosis of diabetes. In the absence of unequivocal hyperglycemia, results should be confirmed by repeat testing. In a patient with classic symptoms of hyperglycemia or hyperglycemic crisis, random plasma glucose results greater than or equal to 200 mg/dL meet the criteria for diagnosis of diabetes.Reference: Standards of Medical Care in Diabetes 2016, [place] [employer]. Diabetes Care. 2016.39(Suppl 1). Performed By: #### 2 4362-6 ####[facility] LABCLIA [id number] [address] [address] [place] Phosphate [Mass/Vol] 3.1 mg/dL Normal 2.7-4.[address] [facility] Comment on above: Order Comment: Speci men Type: BLOOD SPECIMENOrdering Facility: [facility] Address: [address] [place] [address] Performed By: #### 2 4362-6 ####[facility]CLIA [id number] [address] [address] [place] Potassium [Moles/Vol] 4.0 mmol/L Normal 3.7-5.1 [facility] Comment on above: Order Comment: Speci men Type: BLOOD SPECIMENOrdering Facility: [facility] Address: [address] [place], [place] [address] Performed By: #### 2 4362-6 ####[facility]CLIA [id number] [place] [address] [place] Sodium [Moles/Vol] 140 mmol/L Normal 136-144 [facility] Comment on above: Order Comment: Speci men Type: BLOOD SPECIMENOrdering Facility: [facility] Address: [address] [place], [place] [address] Performed By: #### 2 4362-6 ####[facility] LABCLIA [id number] [address] [place] Urea nitrogen [Mass/Vol] 4 mg/dL Low 9-24 [facility] Comment on above: Order Comment: Speci men Type: BLOOD SPECIMENOrdering Facility: [facility] Address: [address] [place], [place] [address] Performed By: #### 2 4362-6 ####[facility] [id number] [place] [address] [place] THERAPY NTon 11-17-2021 THERAPY NT Normal [facility] CBC panel Auto (Bld)on 11-16 Erythrocyte distribution width (RBC) [Ratio] 13.4 % Normal 11.5-15.0 [facility] Comment on above: Order Comment: Speci men Type: BLOOD SPECIMENOrdering Facility: [facility] Address: [address] [place], [place] [address] Performed By: #### 5 8410-2 ####[facility] LABCLIA [id number] [address] [place] Hematocrit (Bld) [Volume fraction] 26.7 % Low 39.0-51.0 [facility] Comment on above: Order Comment: Speci men Type: BLOOD SPECIMENOrdering Facility: [facility] Address: [address] [place], [place] [address] Performed By: #### 5 8410-2 ####[facility] [id number] [address] [place] Hemoglobin (Bld) [Mass/Vol] 8.8 g/dL Low 13.0-17.0 [facility] Comment on above: Order Comment: Speci men Type: BLOOD SPECIMENOrdering Facility: [facility] Address: [address] [place] [address] Performed By: #### 5 8410-2 ####[facility] [id number] [place] [address] [place] MCH (RBC) [Entitic mass] 30.4 pg Normal 26.0-34.0 [facility] Comment on above: Order Comment: Speci men Type: BLOOD SPECIMENOrdering Facility: [facility] Address: [address] [place], [place] [address] Performed By: #### 5 8410-2 ####[facility] [id number] [address] [place] MCHC (RBC) [Mass/Vol] 33.0 g/dL Normal 30.5-36.0 [facility] Comment on above: Order Comment: Speci men Type: BLOOD SPECIMENOrdering Facility: [facility] Address: [address] [place], [place] [address] Performed By: #### 5 8410-2 ####[facility] [id number] [place] [address] [place] MCV (RBC) [Entitic vol] 92.4 fL Normal 80.0-100.0 [facility] Comment on above: Order Comment: Speci men Type: BLOOD SPECIMENOrdering Facility: [facility] Address: [address] [place], [place] [address] Performed By: #### 5 8410-2 ####[facility] [id number] [place] [address] [place] Nucleated RBC (Bld) [#/Vol] 10*3/uL Normal <0.01 [facility] Comment on above: Order Comment: Speci men Type: BLOOD SPECIMENOrdering Facility: [facility] Address: [address] [place], [place] [address] Performed By: #### 5 8410-2 ####[facility] [id number] [place] [address] [place] Platelet mean volume (Bld) [Entitic vol] 10.1 fL Normal 9.0-12.7 [facility] Comment on above: Order Comment: Speci men Type: BLOOD SPECIMENOrdering Facility: [facility] Address: [address] [place] [address] Performed By: #### 5 8410-2 ####[facility] [id number] [place] [address] [place] Platelets (Bld) [#/Vol] 261 10*3/uL Normal 150-400 [facility] Comment on above: Order Comment: Speci men Type: BLOOD SPECIMENOrdering Facility: [facility] Address: [address] [place], [place] [address] Performed By: #### 5 8410-2 ####[facility] [id number] [place] [address] [place] RBC (Bld) [#/Vol] 2.89 10*6/uL Low 4.20-6.00 [facility] Comment on above: Order Comment: Speci men Type: BLOOD SPECIMENOrdering Facility: [facility] Address: [address] [place], [place] [address] Performed By: #### 5 8410-2 ####[facility] [id number] [place] [address] [place] WBC (Bld) [#/Vol] 9.81 10*3/uL Normal 3.70-11.00 [facility] Comment on above: Order Comment: Speci men Type: BLOOD SPECIMENOrdering Facility: [facility] Address: [address] [place] [address] Performed By: #### 5 8410-2 ####[facility]CLIA [id number] [place] [address] [place] PTT, ANTICOAGULANT THERAPYon 11-16-2021 aPTT Coag (PPP) [Time] 33.9 s High 23.0-32.4 [facility] Comment on above: Order Comment: Speci men Type: BLOOD SPECIMENOrdering Facility: [facility] Address: [address] [place] [address] Performed By: #### P TTAC ####[facility]CLIA [id number] [address] [place] aPTT Coag (PPP) [Time] 63.8 s High 23.0-32.4 [facility] Comment on above: Order Comment: Speci men Type: BLOOD SPECIMENOrdering Facility: [facility] Address: [address] [place] [address] Performed By: #### P TTAC ####[facility] [id number] [place] [address] [place] Renal function 2000 panelon 11-16-2021 Albumin [Mass/Vol] 2.3 g/dL Low 3.9-4.9 [facility] Comment on above: Order Comment: Speci men Type: BLOOD SPECIMENOrdering Facility: [facility] Address: [address] [place], [place] [address] Performed By: #### 2 4362-6 ####[facility] [id number] [place] [address] [place] Anion gap [Moles/Vol] 10 mmol/L Normal 9-18 [facility] Comment on above: Order Comment: Speci men Type: BLOOD SPECIMENOrdering Facility: [facility] Address: [address] [place] [address] Performed By: #### 2 4362-6 ####[facility]CLIA [id number] [facility] [place] [address] [place] Calcium [Mass/Vol] 8.7 mg/dL Normal 8.5-10.2 [facility] Comment on above: Order Comment: Speci men Type: BLOOD SPECIMENOrdering Facility: [facility] Address: [address] [place], [place] [address] Performed By: #### 2 4362-6 ####[facility]CLIA [id number] [place] [address] [place] Chloride [Moles/Vol] 109 mmol/L High 97-[address] [facility] Comment on above: Order Comment: Speci men Type: BLOOD SPECIMENOrdering Facility: [facility] Address: [address] [place] [address] Performed By: #### 2 4362-6 ####[facility]CLIA [id number] [facility] [place] [address] [place] CO2 [Moles/Vol] 23 mmol/L Normal 22-30 [facility] Comment on above: Order Comment: Speci men Type: BLOOD SPECIMENOrdering Facility: [facility] Address: [address] [place] [address] Performed By: #### 2 4362-6 ####[facility]CLIA [id number] [place] [address] [place] Creatinine [Mass/Vol] 1.00 mg/dL Normal 0.73-1.22 [facility] Comment on above: Order Comment: Speci men Type: BLOOD SPECIMENOrdering Facility: [facility] Address: [address] [place] [address] Performed By: #### 2 4362-6 ####[facility]CLIA [id number] [address] [facility] ESTIMATED GLOMERULAR FILTRATION RATE 77 mL/min/1.73m??? Normal >=60 [facility] Comment on above: Order Comment: Misbah padilla Type: BLOOD SPECIMENOrdering Facility: [facility] Address: [address] [place] [address] Result Comment: Sandra mated Glomerular Filtration Rate (eGFR) is calculated using the 2020 CKD-EPI creatinine equation. This equation utilizes serum creatinine, sex, and age as parameters. The creatinine assay has traceable calibration to isotope dilution-mass spectrometry. Refer to KDIGO guidelines for clinical interpretation. In patients with unstable renal function, e.g. those with acute kidney injury, the eGFR may not accurately reflect actual GFR. Performed By: #### 2 4362-6 ####[facility] [id number] [place] [address] [place] Glucose [Mass/Vol] 107 mg/dL High 74-99 [facility] Comment on above: Order Comment: Misbah padilla Type: BLOOD SPECIMENOrdering Facility: [facility] Address: [address] [place] [address] Result Comment: The [place] Diabetes Association (ADA) provides guidance for cutoff values for fasting glucose and random glucose. The ADA defines fasting as no caloric intake for at least 8 hours. Fasting plasma glucose results between 100 to 125 mg/dL indicate increased risk for diabetes (prediabetes).Fasting plasma glucose results greater than or equal to 126 mg/dL meet the criteria for diagnosis of diabetes. In the absence of unequivocal hyperglycemia, results should be confirmed by repeat testing. In a patient with classic symptoms of hyperglycemia or hyperglycemic crisis, random plasma glucose results greater than or equal to 200 mg/dL meet the criteria for diagnosis of diabetes.Reference: Standards of Medical Care in Diabetes 2016, [place] [employer]. Diabetes Care. 2016.39(Suppl 1). Performed By: #### 2 4362-6 ####[facility]CL[facility] [id number] [place] [address] [place] Phosphate [Mass/Vol] 3.1 mg/dL Normal 2.7-4.[address] [facility] Comment on above: Order Comment: Speci men Type: BLOOD SPECIMENOrdering Facility: [facility] Address: [address] [place] [address] Performed By: #### 2 4362-6 ####[facility]CLIA [id number] [place] [address] [place] Potassium [Moles/Vol] 4.0 mmol/L Normal 3.7-5.1 [facility] Comment on above: Order Comment: Speci men Type: BLOOD SPECIMENOrdering Facility: [facility] Address: [address] [place] [address] Performed By: #### 2 4362-6 ####[facility]CLIA [id number] [place] [address] [place] Sodium [Moles/Vol] 142 mmol/L Normal 136-144 [facility] Comment on above: Order Comment: Speci men Type: BLOOD SPECIMENOrdering Facility: [facility] Address: [address] [place] [address] Performed By: #### 2 4362-6 ####[facility]CLIA [id number] [place] [address] [place] Urea nitrogen [Mass/Vol] 3 mg/dL Low 9-24 [facility] Comment on above: Order Comment: Speci men Type: BLOOD SPECIMENOrdering Facility: [facility] Address: [address] [place], [place] [address] Performed By: #### 2 4362-6 ####[facility] [id number] [place] [address] [place] CBC panel Auto (Bld)on 11-15 Erythrocyte distribution width (RBC) [Ratio] 13.3 % Normal 11.5-15.0 [facility] Comment on above: Order Comment: Speci men Type: BLOOD SPECIMENOrdering Facility: [facility] Address: [address] [place], [place] [address] Performed By: #### 5 8410-2 ####[facility]CL[facility] [id number] [address] [place] Hematocrit (Bld) [Volume fraction] 29.2 % Low 39.0-51.0 [facility] Comment on above: Order Comment: Speci men Type: BLOOD SPECIMENOrdering Facility: [facility] Address: [address] [place], [place] [address] Performed By: #### 5 8410-2 ####[facility] [id number] [address] [place] Hemoglobin (Bld) [Mass/Vol] 9.4 g/dL Low 13.0-17.0 [facility] Comment on above: Order Comment: Speci men Type: BLOOD SPECIMENOrdering Facility: [facility] Address: [address] [place], [place] [address] Performed By: #### 5 8410-2 ####[facility] [id number] [address] [place] MCH (RBC) [Entitic mass] 30.3 pg Normal 26.0-34.0 [facility] Comment on above: Order Comment: Speci men Type: BLOOD SPECIMENOrdering Facility: [facility] Address: [address] [place], [place] [address] Performed By: #### 5 8410-2 ####[facility] [id number] [address] [place] MCHC (RBC) [Mass/Vol] 32.2 g/dL Normal 30.5-36.0 [facility] Comment on above: Order Comment: Speci men Type: BLOOD SPECIMENOrdering Facility: [facility] Address: [address] [place] [address] Performed By: #### 5 8410-2 ####[facility] [id number] [address] MCV (RBC) [Entitic vol] 94.2 fL Normal 80.0-100.0 [facility] Comment on above: Order Comment: Speci men Type: BLOOD SPECIMENOrdering Facility: [facility] Address: [address] [place], [place] [address] Performed By: #### 5 8410-2 ####[facility] [id number] [place] [address] [place] Nucleated RBC (Bld) [#/Vol] 10*3/uL Normal <0.01 [facility] Comment on above: Order Comment: Speci men Type: BLOOD SPECIMENOrdering Facility: [facility] Address: [address] [place] [address] Performed By: #### 5 8410-2 ####[facility] [id number] [place] [address] [place] Platelet mean volume (Bld) [Entitic vol] 10.0 fL Normal 9.0-12.7 [facility] Comment on above: Order Comment: Speci men Type: BLOOD SPECIMENOrdering Facility: [facility] Address: [address] [place] [address] Performed By: #### 5 8410-2 ####[facility] LABCLIA [id number] [place] [address] [place] Platelets (Bld) [#/Vol] 336 10*3/uL Normal 150-400 [facility] Comment on above: Order Comment: Speci men Type: BLOOD SPECIMENOrdering Facility: [facility] Address: [address] [place], [place] [address] Performed By: #### 5 8410-2 ####[facility] LABCLIA [id number] [place] [address] [place] RBC (Bld) [#/Vol] 3.10 10*6/uL Low 4.20-6.00 [facility] Comment on above: Order Comment: Speci men Type: BLOOD SPECIMENOrdering Facility: [facility] Address: [address] [place], [place] [address] Performed By: #### 5 8410-2 ####[facility] [id number] [place] [address] [place] WBC (Bld) [#/Vol] 9.78 10*3/uL Normal 3.70-11.00 [facility] Comment on above: Order Comment: Speci men Type: BLOOD SPECIMENOrdering Facility: [facility] Address: [address] [place], [place] [address] Performed By: #### 5 8410-2 ####[facility] [id number] [place] [address] [place] PT EDon 11-15-2021 PT ED Normal [facility] PTT, ANTICOAGULANT THERAPYon 11-15-2021 aPTT Coag (PPP) [Time] 45.7 s High 23.0-32.4 [facility] Comment on above: Order Comment: Speci men Type: BLOOD SPECIMENOrdering Facility: [facility] Address: [address] [place] [address] Performed By: #### P TTAC ####[facility] [id number] [place] [address] [place] aPTT Coag (PPP) [Time] 73.7 s High 23.0-32.4 [facility] Comment on above: Order Comment: Speci men Type: BLOOD SPECIMENOrdering Facility: [facility] Address: [address] [place], [place] [address] Performed By: #### P TTAC ####[facility] LABCLIA [id number] [place] [address] [place] aPTT Coag (PPP) [Time] 43.4 s High 23.0-32.4 [facility] Comment on above: Order Comment: Speci men Type: BLOOD SPECIMENOrdering Facility: [facility] Address: [address] [place] [address] Performed By: #### P TTA ####[facility] [id number] [place] [address] [place] Renal function 2000 panelon 11-15-2021 Albumin [Mass/Vol] 2.5 g/dL Low 3.9-4.9 [facility] Comment on above: Order Comment: Speci men Type: BLOOD SPECIMENOrdering Facility: [facility] Address: [address] [place] [address] Performed By: #### 2 4362-6 ####[facility] [id number] [place] [address] [place] Anion gap [Moles/Vol] 11 mmol/L Normal 9-18 [facility] Comment on above: Order Comment: Speci men Type: BLOOD SPECIMENOrdering Facility: [facility] Address: [address] [place] [address] Performed By: #### 2 4362-6 ####[facility] [id number] [place] [address] [place] Calcium [Mass/Vol] 8.7 mg/dL Normal 8.5-10.2 [facility] Comment on above: Order Comment: Speci men Type: BLOOD SPECIMENOrdering Facility: [facility] Address: [address] [place], [place] [address] Performed By: #### 2 4362-6 ####[facility] [id number] [place] [address] [place] Chloride [Moles/Vol] 110 mmol/L High 97-[address] [facility] Comment on above: Order Comment: Speci men Type: BLOOD SPECIMENOrdering Facility: [facility] Address: [address] [place] [address] Performed By: #### 2 4362-6 ####[facility] LABCLIA [id number] [place] [address] [place] CO2 [Moles/Vol] 22 mmol/L Normal 22-30 [facility] Comment on above: Order Comment: Speci men Type: BLOOD SPECIMENOrdering Facility: [facility] Address: [address] [place], [place] [address] Performed By: #### 2 4362-6 ####[facility] LABCLIA [id number] [address] STATES OF [facility] Creatinine [Mass/Vol] 0.97 mg/dL Normal 0.73-1.22 [facility] Comment on above: Order Comment: Speci men Type: BLOOD SPECIMENOrdering Facility: [facility] Address: [address] [place], [place] [address] Performed By: #### 2 4362-6 ####[facility] LABCLIA [id number] [address] [place] ESTIMATED GLOMERULAR FILTRATION RATE 79 mL/min/1.73m??? Normal >=60 [facility] Comment on above: Order Comment: Speci men Type: BLOOD SPECIMENOrdering Facility: [facility] Address: [address] [place], [place] [address] Result Comment: Sandra mated Glomerular Filtration Rate (eGFR) is calculated using the 2020 CKD-EPI creatinine equation. This equation utilizes serum creatinine, sex, and age as parameters. The creatinine assay has traceable calibration to isotope dilution-mass spectrometry. Refer to KDIGO guidelines for clinical interpretation. In patients with unstable renal function, e.g. those with acute kidney injury, the eGFR may not accurately reflect actual GFR. Performed By: #### 2 4362-6 ####[facility] LABCLIA [id number] [place] [address] [place] Glucose [Mass/Vol] 121 mg/dL High 74-99 [facility] Comment on above: Order Comment: Speci men Type: BLOOD SPECIMENOrdering Facility: [facility] Address: [address] [place] [address] Result Comment: The [place] [employer] (ADA) provides guidance for cutoff values for fasting glucose and random glucose. The ADA defines fasting as no caloric intake for at least 8 hours. Fasting plasma glucose results between 100 to 125 mg/dL indicate increased risk for diabetes (prediabetes).Fasting plasma glucose results greater than or equal to 126 mg/dL meet the criteria for diagnosis of diabetes. In the absence of unequivocal hyperglycemia, results should be confirmed by repeat testing. In a patient with classic symptoms of hyperglycemia or hyperglycemic crisis, random plasma glucose results greater than or equal to 200 mg/dL meet the criteria for diagnosis of diabetes.Reference: Standards of Medical Care in Diabetes 2016, [place] [employer]. Diabetes Care. 2016.39(Suppl 1). Performed By: #### 2 4362-6 ####[facility] LABCLIA [id number] [place] [address] [place] Phosphate [Mass/Vol] 2.5 mg/dL Low 2.7-4.[address] [facility] Comment on above: Order Comment: Speci men Type: BLOOD SPECIMENOrdering Facility: [facility] Address: [address] [place], [place] [address] Performed By: #### 2 4362-6 ####[facility] [id number] [place] [address] [place] Potassium [Moles/Vol] 3.1 mmol/L Low 3.7-5.1 [facility] Comment on above: Order Comment: Speci men Type: BLOOD SPECIMENOrdering Facility: [facility] Address: [address] [place] [address] Performed By: #### 2 4362-6 ####[facility] LABCLIA [id number] [place] [address] [place] Sodium [Moles/Vol] 143 mmol/L Normal 136-144 [facility] Comment on above: Order Comment: Speci men Type: BLOOD SPECIMENOrdering Facility: [facility] Address: [address] [place] [address] Performed By: #### 2 4362-6 ####[facility] LABCLIA [id number] [place] [address] [place] Urea nitrogen [Mass/Vol] 4 mg/dL Low 9-24 [facility] Comment on above: Order Comment: Speci men Type: BLOOD SPECIMENOrdering Facility: [facility] Address: [address] [place] [address] Performed By: #### 2 4362-6 ####[facility] LABCLIA [id number] [place] [address] [place] TYPE + SCREENon 11-15-2021 ABO O Normal [facility] Comment on above: Order Comment: Speci men Type: BLOOD SPECIMENOrdering Facility: [facility] Address: [address] [place] [address] Performed By: #### T SCR ####[facility] BLOOD BANKCLIA [id number] [place] [address] [place] HISTORICAL AB SCR STATUS Negative Normal [facility] Comment on above: Order Comment: Speci men Type: BLOOD SPECIMENOrdering Facility: [facility] Address: [address] [place], [place] [address] Performed By: #### T SCR ####[facility] BLOOD BANKIA [id number] [place] [address] [place] Rh Nom (Bld) Positive Normal [facility] Comment on above: Order Comment: Speci men Type: BLOOD SPECIMENOrdering Facility: [facility] Address: [address] [place], [place] [address] Performed By: #### T SCR ####[facility] BLOOD BANKCLIA [id number] [place] [id number] [place] TYPE AND SCREEN EXPIRATION 11/18/2021 23:59 Normal [facility] Comment on above: Order Comment: Speci men Type: BLOOD SPECIMENOrdering Facility: [facility] Address: [address] [place] [address] Performed By: #### T SCR ####[facility] BLOOD BANKCLIA [id number] [place] [id number] [place] Basic metabolic 2000 panelon 11-14-2021 Anion gap [Moles/Vol] 8 mmol/L Low 9-18 [facility] Comment on above: Order Comment: Speci men Type: BLOOD SPECIMENOrdering Facility: [facility] Address: [address] [place] [address] Performed By: #### 2 4321-2 ####[facility] LABCLIA [id number] [place] [address] [place] Calcium [Mass/Vol] 8.8 mg/dL Normal 8.5-10.2 [facility] Comment on above: Order Comment: Speci men Type: BLOOD SPECIMENOrdering Facility: [facility] Address: [address] [place], [place] [address] Performed By: #### 2 4321-2 ####[facility] LABCLIA [id number] [place] [address] [place] Chloride [Moles/Vol] 110 mmol/L High 97-[address] [facility] Comment on above: Order Comment: Speci men Type: BLOOD SPECIMENOrdering Facility: [facility] Address: [address] [place], [place] [address] Performed By: #### 2 4321-2 ####[facility] LABCLIA [id number] [place] [address] [place] CO2 [Moles/Vol] 24 mmol/L Normal 22-30 [facility] Comment on above: Order Comment: Speci men Type: BLOOD SPECIMENOrdering Facility: [facility] Address: [address] [place] [address] Performed By: #### 2 4321-2 ####[facility] LABCLIA [id number] [place] [address] [place] Creatinine [Mass/Vol] 0.96 mg/dL Normal 0.73-1.22 [facility] Comment on above: Order Comment: Speci men Type: BLOOD SPECIMENOrdering Facility: [facility] Address: [address] [place] [address] Performed By: #### 2 4321-2 ####[facility] [id number] [place] [address] [place] ESTIMATED GLOMERULAR FILTRATION RATE 80 mL/min/1.73m??? Normal >=60 [facility] Comment on above: Order Comment: Speci men Type: BLOOD SPECIMENOrdering Facility: [facility] Address: [address] [place] [address] Result Comment: Sandra mated Glomerular Filtration Rate (eGFR) is calculated using the 2020 CKD-EPI creatinine equation. This equation utilizes serum creatinine, sex, and age as parameters. The creatinine assay has traceable calibration to isotope dilution-mass spectrometry. Refer to KDIGO guidelines for clinical interpretation. In patients with unstable renal function, e.g. those with acute kidney injury, the eGFR may not accurately reflect actual GFR. Performed By: #### 2 4321-2 ####[facility] [id number] [facility] [place] [address] [place] Glucose [Mass/Vol] 113 mg/dL High 74-99 [facility] Comment on above: Order Comment: Speci men Type: BLOOD SPECIMENOrdering Facility: [facility] Address: [address] [place] [address] Result Comment: The [place] Diabetes [employer] (ADA) provides guidance for cutoff values for fasting glucose and random glucose. The ADA defines fasting as no caloric intake for at least 8 hours. Fasting plasma glucose results between 100 to 125 mg/dL indicate increased risk for diabetes (prediabetes).Fasting plasma glucose results greater than or equal to 126 mg/dL meet the criteria for diagnosis of diabetes. In the absence of unequivocal hyperglycemia, results should be confirmed by repeat testing. In a patient with classic symptoms of hyperglycemia or hyperglycemic crisis, random plasma glucose results greater than or equal to 200 mg/dL meet the criteria for diagnosis of diabetes.Reference: Standards of Medical Care in Diabetes 2016, [place] [employer]. Diabetes Care. 2016.39(Suppl 1). Performed By: #### 2 4321-2 ####[facility] LABCLIA [id number] [place] [address] [place] Potassium [Moles/Vol] 3.0 mmol/L Low 3.7-5.1 [facility] Comment on above: Order Comment: Speci men Type: BLOOD SPECIMENOrdering Facility: [facility] Address: [address] [place] [address] Performed By: #### 2 4321-2 ####[facility] [id number] [place] [address] [place] Sodium [Moles/Vol] 142 mmol/L Normal 136-144 [facility] Comment on above: Order Comment: Speci men Type: BLOOD SPECIMENOrdering Facility: [facility] Address: [address] [place] [address] Performed By: #### 2 4321-2 ####[facility] LABCLIA [id number] [place] [address] [place] Urea nitrogen [Mass/Vol] 3 mg/dL Low 9-24 [facility] Comment on above: Order Comment: Speci men Type: BLOOD SPECIMENOrdering Facility: [facility] Address: [address] [place] [address] Performed By: #### 2 4321-2 ####[facility] LABCLIA [id number] [place] [address] [place] CASE MANAGEMon 11-14-2021 CASE MANAGEM Normal [facility] CBC panel Auto (Bld)on 11-14 Erythrocyte distribution width (RBC) [Ratio] 13.3 % Normal 11.5-15.0 [facility] Comment on above: Order Comment: Speci men Type: BLOOD SPECIMENOrdering Facility: [facility] Address: [address] [place], [place] [address] Performed By: #### 5 8410-2 ####[facility] [id number] [place] [address] [place] Hematocrit (Bld) [Volume fraction] 29.7 % Low 39.0-51.0 [facility] Comment on above: Order Comment: Speci men Type: BLOOD SPECIMENOrdering Facility: [facility] Address: [address] [place], [place] [address] Performed By: #### 5 8410-2 ####[facility] [id number] [place] [address] [place] Hemoglobin (Bld) [Mass/Vol] 9.4 g/dL Low 13.0-17.0 [facility] Comment on above: Order Comment: Speci men Type: BLOOD SPECIMENOrdering Facility: [facility] Address: [address] [place], [place] [address] Performed By: #### 5 8410-2 ####[facility] [id number] [place] [address] [place] MCH (RBC) [Entitic mass] 30.2 pg Normal 26.0-34.0 [facility] Comment on above: Order Comment: Speci men Type: BLOOD SPECIMENOrdering Facility: [facility] Address: [address] [place], [place] [address] Performed By: #### 5 8410-2 ####[facility]IA [id number] [place] MCHC (RBC) [Mass/Vol] 31.6 g/dL Normal 30.5-36.0 [facility] Comment on above: Order Comment: Speci men Type: BLOOD SPECIMENOrdering Facility: [facility] Address: [address] [place], [place] [address] Performed By: #### 5 8410-2 ####[facility] [id number] [place] [address] [place] MCV (RBC) [Entitic vol] 95.5 fL Normal 80.0-100.0 [facility] Comment on above: Order Comment: Speci men Type: BLOOD SPECIMENOrdering Facility: [facility] Address: [address] [place], [place] [address] Performed By: #### 5 8410-2 ####[facility] [id number] [place] [address] [place] Nucleated RBC (Bld) [#/Vol] 10*3/uL Normal <0.01 [facility] Comment on above: Order Comment: Speci men Type: BLOOD SPECIMENOrdering Facility: [facility] Address: [address] [place], [place] [address] Performed By: #### 5 8410-2 ####[facility] [id number] [place] [address] [place] Platelet mean volume (Bld) [Entitic vol] 9.6 fL Normal 9.0-12.7 [facility] Comment on above: Order Comment: Speci men Type: BLOOD SPECIMENOrdering Facility: [facility] Address: [address] [place], [place] [address] Performed By: #### 5 8410-2 ####[facility] LABCLIA [id number] [place] [address] [place] Platelets (Bld) [#/Vol] 308 10*3/uL Normal 150-400 [facility] Comment on above: Order Comment: Speci men Type: BLOOD SPECIMENOrdering Facility: [facility] Address: [address] [place], [place] [address] Performed By: #### 5 8410-2 ####[facility] LABCLIA [id number] [place] [address] [place] RBC (Bld) [#/Vol] 3.11 10*6/uL Low 4.20-6.00 [facility] Comment on above: Order Comment: Speci men Type: BLOOD SPECIMENOrdering Facility: [facility] Address: [address] [place], [place] [address] Performed By: #### 5 8410-2 ####[facility] LABCLIA [id number] [place] [address] [place] WBC (Bld) [#/Vol] 9.48 10*3/uL Normal 3.70-11.00 [facility] Comment on above: Order Comment: Speci men Type: BLOOD SPECIMENOrdering Facility: [facility] Address: [address] [place], [place] [address] Performed By: #### 5 8410-2 ####[facility] [id number] [place] [address] [place] NURSING PROGon 11-14-2021 NURSING PROG Normal [facility] NUTRITIONon 11-14-2021 NUTRITION Normal [facility] PTT, ANTICOAGULANT THERAPYon 11-14-2021 aPTT Coag (PPP) [Time] 49.0 s High 23.0-32.4 [facility] Comment on above: Order Comment: Speci men Type: BLOOD SPECIMENOrdering Facility: [facility] Address: [address] [place], [place] [address] Performed By: #### P TTAC ####[facility] LABCLIA [id number] [place] [address] [place] Renal function 2000 panelon 11-14-2021 Albumin [Mass/Vol] 2.1 g/dL Low 3.9-4.9 [facility] Comment on above: Order Comment: Speci men Type: BLOOD SPECIMENOrdering Facility: [facility] Address: [address] [place], [place] [address] Performed By: #### 2 4362-6 ####[facility] LABCLIA [id number] [place] [address] [place] Anion gap [Moles/Vol] 10 mmol/L Normal 9-18 [facility] Comment on above: Order Comment: Speci men Type: BLOOD SPECIMENOrdering Facility: [facility] Address: [address] [place], [place] [address] Performed By: #### 2 4362-6 ####[facility]CLIA [id number] [place] [address] [place] Calcium [Mass/Vol] 8.3 mg/dL Low 8.5-10.2 [facility] Comment on above: Order Comment: Speci men Type: BLOOD SPECIMENOrdering Facility: [facility] Address: [address] [place], [place] [address] Performed By: #### 2 4362-6 ####[facility] LABCLIA [id number] [place] [address] [place] Chloride [Moles/Vol] 111 mmol/L High 97-[address] [facility] Comment on above: Order Comment: Speci men Type: BLOOD SPECIMENOrdering Facility: [facility] Address: [address] [place], [place] [address] Performed By: #### 2 4362-6 ####[facility]CL[facility] [id number] [place] [address] [place] CO2 [Moles/Vol] 21 mmol/L Low 22-30 [facility] Comment on above: Order Comment: Speci men Type: BLOOD SPECIMENOrdering Facility: [facility] Address: [address] [place] [id number] Performed By: #### 2 4362-6 ####[facility] [id number] [address] [place] [facility] Creatinine [Mass/Vol] 0.91 mg/dL Normal 0.73-1.22 [facility] Comment on above: Order Comment: Speci men Type: BLOOD SPECIMENOrdering Facility: [facility] Address: [address] [place] [address] Performed By: #### 2 4362-6 ####[facility]IA [id number] [address] OF [facility] ESTIMATED GLOMERULAR FILTRATION RATE 86 mL/min/1.73m??? Normal >=60 [facility] Comment on above: Order Comment: [place]il[place] men Type: BLOOD SPECIMENOrdering Facility: [facility] Address: [address] [place] [address] Result Comment: Sandra mated Glomerular Filtration Rate (eGFR) is calculated using the 2020 CKD-EPI creatinine equation. This equation utilizes serum creatinine, sex, and age as parameters. The creatinine assay has traceable calibration to isotope dilution-mass spectrometry. Refer to KDIGO guidelines for clinical interpretation. In patients with unstable renal function, e.g. those with acute kidney injury, the eGFR may not accurately reflect actual GFR. Performed By: #### 2 4362-6 ####[facility] LABIA [id number] [address] [place] Glucose [Mass/Vol] 97 mg/dL Normal 74-99 [facility] Comment on above: Order Comment: Speci men Type: BLOOD SPECIMENOrdering Facility: [facility] Address: [address] [place] [address] Result Comment: The [place] [employer] (ADA) provides guidance for cutoff values for fasting glucose and random glucose. The ADA defines fasting as no caloric intake for at least 8 hours. Fasting plasma glucose results between 100 to 125 mg/dL indicate increased risk for diabetes (prediabetes).Fasting plasma glucose results greater than or equal to 126 mg/dL meet the criteria for diagnosis of diabetes. In the absence of unequivocal hyperglycemia, results should be confirmed by repeat testing. In a patient with classic symptoms of hyperglycemia or hyperglycemic crisis, random plasma glucose results greater than or equal to 200 mg/dL meet the criteria for diagnosis of diabetes.Reference: Standards of Medical Care in Diabetes 2016, [place] [employer]. Diabetes Care. 2016.39(Suppl 1). Performed By: #### 2 4362-6 ####[facility] LABCLIA [id number] [place] [address] [place] Phosphate [Mass/Vol] 2.3 mg/dL Low 2.7-4.[address] [facility] Comment on above: Order Comment: Speci men Type: BLOOD SPECIMENOrdering Facility: [facility] Address: [address] [place] [address] Performed By: #### 2 4362-6 ####[facility] LABIA [id number] [place] [address] [place] Potassium [Moles/Vol] 3.0 mmol/L Low 3.7-5.1 [facility] Comment on above: Order Comment: Speci men Type: BLOOD SPECIMENOrdering Facility: [facility] Address: [address] [place] [address] Performed By: #### 2 4362-6 ####[facility] LABIA [id number] [place] [address] [place] Sodium [Moles/Vol] 142 mmol/L Normal 136-144 [facility] Comment on above: Order Comment: Speci men Type: BLOOD SPECIMENOrdering Facility: [facility] Address: [address] [place], [place] [address] Performed By: #### 2 4362-6 ####[facility] LABCLIA [id number] [place] [address] [place] Urea nitrogen [Mass/Vol] 3 mg/dL Low 9-24 [facility] Comment on above: Order Comment: Speci men Type: BLOOD SPECIMENOrdering Facility: [facility] Address: [address] [place] [address] Performed By: #### 2 4362-6 ####[facility] LABCLIA [id number] [place] [address] [place] CBC panel Auto (Bld)on 11-13 Erythrocyte distribution width (RBC) [Ratio] 13.5 % Normal 11.5-15.0 [facility] Comment on above: Order Comment: Speci men Type: BLOOD SPECIMENOrdering Facility: [facility] Address: [address] [place] [address] Performed By: #### 5 8410-2 ####[facility] LABIA [id number] [place] [address] [place] Hematocrit (Bld) [Volume fraction] 27.3 % Low 39.0-51.0 [facility] Comment on above: Order Comment: Speci men Type: BLOOD SPECIMENOrdering Facility: [facility] Address: [address] [place] [address] Performed By: #### 5 8410-2 ####[facility] LABIA [id number] [place] [address] [place] Hemoglobin (Bld) [Mass/Vol] 8.8 g/dL Low 13.0-17.0 [facility] Comment on above: Order Comment: Speci men Type: BLOOD SPECIMENOrdering Facility: [facility] Address: [address] [place] [address] Performed By: #### 5 8410-2 ####[facility] LABIA [id number] [place] [address] [place] MCH (RBC) [Entitic mass] 30.6 pg Normal 26.0-34.0 [facility] Comment on above: Order Comment: Speci men Type: BLOOD SPECIMENOrdering Facility: [facility] Address: [address] [place], [place] [address] Performed By: #### 5 8410-2 ####[facility] LABIA [id number] [address] MCHC (RBC) [Mass/Vol] 32.2 g/dL Normal 30.5-36.0 [facility] Comment on above: Order Comment: Speci men Type: BLOOD SPECIMENOrdering Facility: [facility] Address: [address] [place], [place] [address] Performed By: #### 5 8410-2 ####[facility] LABIA [id number] [place] [address] [place] MCV (RBC) [Entitic vol] 94.8 fL Normal 80.0-100.0 [facility] Comment on above: Order Comment: Speci men Type: BLOOD SPECIMENOrdering Facility: [facility] Address: [address] [place], [place] [address] Performed By: #### 5 8410-2 ####[facility] [id number] [place] [address] [place] Nucleated RBC (Bld) [#/Vol] 10*3/uL Normal <0.01 [facility] Comment on above: Order Comment: Speci men Type: BLOOD SPECIMENOrdering Facility: [facility] Address: [address] [place] [address] Performed By: #### 5 8410-2 ####[facility] LABIA [id number] [place] [address] [place] Platelet mean volume (Bld) [Entitic vol] 9.7 fL Normal 9.0-12.7 [facility] Comment on above: Order Comment: Speci men Type: BLOOD SPECIMENOrdering Facility: [facility] Address: [address] [place], [place] [address] Performed By: #### 5 8410-2 ####[facility] LABCLIA [id number] [place] [address] [place] Platelets (Bld) [#/Vol] 309 10*3/uL Normal 150-400 [facility] Comment on above: Order Comment: Speci men Type: BLOOD SPECIMENOrdering Facility: [facility] Address: [address] [place], [place] [address] Performed By: #### 5 8410-2 ####[facility] LABIA [id number] [place] [address] [place] RBC (Bld) [#/Vol] 2.88 10*6/uL Low 4.20-6.00 [facility] Comment on above: Order Comment: Speci men Type: BLOOD SPECIMENOrdering Facility: [facility] Address: [address] [place], [place] [address] Performed By: #### 5 8410-2 ####[facility] LABIA [id number] [place] [address] [place] WBC (Bld) [#/Vol] 10.12 10*3/uL Normal 3.70-11.[address] [facility] Comment on above: Order Comment: Speci men Type: BLOOD SPECIMENOrdering Facility: [facility] Address: [address] [place], [place] [address] Performed By: #### 5 8410-2 ####[facility] [id number] [place] [address] [place] NURSING PROGon 11-13-2021 NURSING PROG Normal [facility] NURSING PROG Normal [facility] PTT, ANTICOAGULANT THERAPYon 11-13-2021 aPTT Coag (PPP) [Time] 61.2 s High 23.0-32.4 [facility] Comment on above: Order Comment: Speci men Type: BLOOD SPECIMENOrdering Facility: [facility] Address: [address] [place], [place] [address] Performed By: #### P TTAC ####[facility] LABCLIA [id number] [place] [address] [place] aPTT Coag (PPP) [Time] 63.9 s High 23.0-32.4 [facility] Comment on above: Order Comment: Speci men Type: BLOOD SPECIMENOrdering Facility: [facility] Address: [address] [place], [place] [address] Performed By: #### P TTAC ####[facility] LABCLIA [id number] [place] [address] [place] aPTT Coag (PPP) [Time] 43.6 s High 23.0-32.4 [facility] Comment on above: Order Comment: Speci men Type: BLOOD SPECIMENOrdering Facility: [facility] Address: [address] [place], [place] [address] Performed By: #### P TTAC ####[facility] LABIA [id number] [address] [place] aPTT Coag (PPP) [Time] 61.4 s High 23.0-32.4 [facility] Comment on above: Order Comment: Speci men Type: BLOOD SPECIMENOrdering Facility: [facility] Address: [address] [place], [place] [address] Performed By: #### P TTAC ####[facility] LABCLIA [id number] [place] [address] [place] Renal function 2000 panelon 11-13-2021 Albumin [Mass/Vol] 2.3 g/dL Low 3.9-4.9 [facility] Comment on above: Order Comment: Speci men Type: BLOOD SPECIMENOrdering Facility: [facility] Address: [address] [place], [place] [address] Performed By: #### 2 4362-6 ####[facility] LABCLIA [id number] [place] [address] [place] Anion gap [Moles/Vol] 9 mmol/L Normal 9-18 [facility] Comment on above: Order Comment: Speci men Type: BLOOD SPECIMENOrdering Facility: [facility] Address: [address] [place] [address] Performed By: #### 2 4362-6 ####[facility] LABCLIA [id number] [place] [address] [place] Calcium [Mass/Vol] 8.3 mg/dL Low 8.5-10.2 [facility] Comment on above: Order Comment: Speci men Type: BLOOD SPECIMENOrdering Facility: [facility] Address: [address] [place], [place] [address] Performed By: #### 2 4362-6 ####[facility] LABCLIA [id number] [place] [address] [place] Chloride [Moles/Vol] 113 mmol/L High 97-[address] [facility] Comment on above: Order Comment: Speci men Type: BLOOD SPECIMENOrdering Facility: [facility] Address: [address] [place] [address] Performed By: #### 2 4362-6 ####[facility] LABCLIA [id number] [place] [address] [place] CO2 [Moles/Vol] 21 mmol/L Low 22-30 [facility] Comment on above: Order Comment: Speci men Type: BLOOD SPECIMENOrdering Facility: [facility] Address: [address] [place] [address] Performed By: #### 2 4362-6 ####[facility] LABCLIA [id number] [place] [address] [place] Creatinine [Mass/Vol] 1.01 mg/dL Normal 0.73-1.22 [facility] Comment on above: Order Comment: Speci men Type: BLOOD SPECIMENOrdering Facility: [facility] Address: [address] [place] [address] Performed By: #### 2 4362-6 ####[facility] LABIA [id number] [address] [place] ESTIMATED GLOMERULAR FILTRATION RATE 76 mL/min/1.73m??? Normal >=60 [facility] Comment on above: Order Comment: Misbah padilla Type: BLOOD SPECIMENOrdering Facility: [facility] Address: [address] [place] [address] Result Comment: Sandra mated Glomerular Filtration Rate (eGFR) is calculated using the 2020 CKD-EPI creatinine equation. This equation utilizes serum creatinine, sex, and age as parameters. The creatinine assay has traceable calibration to isotope dilution-mass spectrometry. Refer to KDIGO guidelines for clinical interpretation. In patients with unstable renal function, e.g. those with acute kidney injury, the eGFR may not accurately reflect actual GFR. Performed By: #### 2 4362-6 ####[facility] LABIA [id number] [place] [address] [place] Glucose [Mass/Vol] 123 mg/dL High 74-99 [facility] Comment on above: Order Comment: Misbah padilla Type: BLOOD SPECIMENOrdering Facility: [facility] Address: [address] [place] [address] Result Comment: The [place] Diabetes [employer] (ADA) provides guidance for cutoff values for fasting glucose and random glucose. The ADA defines fasting as no caloric intake for at least 8 hours. Fasting plasma glucose results between 100 to 125 mg/dL indicate increased risk for diabetes (prediabetes).Fasting plasma glucose results greater than or equal to 126 mg/dL meet the criteria for diagnosis of diabetes. In the absence of unequivocal hyperglycemia, results should be confirmed by repeat testing. In a patient with classic symptoms of hyperglycemia or hyperglycemic crisis, random plasma glucose results greater than or equal to 200 mg/dL meet the criteria for diagnosis of diabetes.Reference: Standards of Medical Care in Diabetes 2016, [place] [employer]. Diabetes Care. 2016.39(Suppl 1). Performed By: #### 2 4362-6 ####[facility] LABCLIA [id number] [place] [address] [place] Phosphate [Mass/Vol] 2.9 mg/dL Normal 2.7-4.[address] [facility] Comment on above: Order Comment: Speci men Type: BLOOD SPECIMENOrdering Facility: [facility] Address: [address] [place], [place] [address] Performed By: #### 2 4362-6 ####[facility] LABCLIA [id number] [place] [address] [place] Potassium [Moles/Vol] 3.2 mmol/L Low 3.7-5.1 [facility] Comment on above: Order Comment: Speci men Type: BLOOD SPECIMENOrdering Facility: [facility] Address: [address] [place], [place] [address] Performed By: #### 2 4362-6 ####[facility] LABIA [id number] [place] [address] [place] Sodium [Moles/Vol] 143 mmol/L Normal 136-144 [facility] Comment on above: Order Comment: Speci men Type: BLOOD SPECIMENOrdering Facility: [facility] Address: [address] [place], [place] [address] Performed By: #### 2 4362-6 ####[facility] LABCLIA [id number] [place] [address] [place] Urea nitrogen [Mass/Vol] 5 mg/dL Low 9-24 [facility] Comment on above: Order Comment: Speci men Type: BLOOD SPECIMENOrdering Facility: [facility] Address: [address] [place] [address] Performed By: #### 2 4362-6 ####[facility] LABCLIA [id number] [place] [id number] [place] CASE MANAGEMon 11-12-2021 CASE MANAGEM Normal [facility] CBC panel Auto (Bld)on 11-12 Erythrocyte distribution width (RBC) [Ratio] 13.8 % Normal 11.5-15.0 [facility] Comment on above: Order Comment: Speci men Type: BLOOD SPECIMENOrdering Facility: [facility] Address: [address] [place] [address] Performed By: #### 5 8410-2 ####[facility] LABIA [id number] [address] [facility] Hematocrit (Bld) [Volume fraction] 27.9 % Low 39.0-51.0 [facility] Comment on above: Order Comment: Speci men Type: BLOOD SPECIMENOrdering Facility: [facility] Address: [address] [place] [address] Performed By: #### 5 8410-2 ####[facility] LABIA [id number] [address] [facility] Hemoglobin (Bld) [Mass/Vol] 8.9 g/dL Low 13.0-17.0 [facility] Comment on above: Order Comment: Speci men Type: BLOOD SPECIMENOrdering Facility: [facility] Address: [address] [place] [address] Performed By: #### 5 8410-2 ####[facility] LABIA [id number] [place] [address] [place] MCH (RBC) [Entitic mass] 30.1 pg Normal 26.0-34.0 [facility] Comment on above: Order Comment: Speci men Type: BLOOD SPECIMENOrdering Facility: [facility] Address: [address] [place], [place] [address] Performed By: #### 5 8410-2 ####[facility] LABCLIA [id number] [address] [place] MCHC (RBC) [Mass/Vol] 31.9 g/dL Normal 30.5-36.0 [facility] Comment on above: Order Comment: Speci men Type: BLOOD SPECIMENOrdering Facility: [facility] Address: [address] [place] [address] Performed By: #### 5 8410-2 ####[facility] LABIA [id number] [address] [place] MCV (RBC) [Entitic vol] 94.3 fL Normal 80.0-100.0 [facility] Comment on above: Order Comment: Speci men Type: BLOOD SPECIMENOrdering Facility: [facility] Address: [address] [place], [place] [address] Performed By: #### 5 8410-2 ####[facility] LABIA [id number] [place] [address] [place] Nucleated RBC (Bld) [#/Vol] 10*3/uL Normal <0.01 [facility] Comment on above: Order Comment: Speci men Type: BLOOD SPECIMENOrdering Facility: [facility] Address: [address] [place], [place] [address] Performed By: #### 5 8410-2 ####[facility] LABIA [id number] [place] [address] [place] Platelet mean volume (Bld) [Entitic vol] 9.5 fL Normal 9.0-12.7 [facility] Comment on above: Order Comment: Speci men Type: BLOOD SPECIMENOrdering Facility: [facility] Address: [address] [place] [address] Performed By: #### 5 8410-2 ####[facility] LABCLIA [id number] [place] [address] [place] Platelets (Bld) [#/Vol] 349 10*3/uL Normal 150-400 [facility] Comment on above: Order Comment: Speci men Type: BLOOD SPECIMENOrdering Facility: [facility] Address: [address] [place], [place] [address] Performed By: #### 5 8410-2 ####[facility] LABIA [id number] [place] [address] [place] RBC (Bld) [#/Vol] 2.96 10*6/uL Low 4.20-6.00 [facility] Comment on above: Order Comment: Speci men Type: BLOOD SPECIMENOrdering Facility: [facility] Address: [address] [place], [place] [address] Performed By: #### 5 8410-2 ####[facility] [id number] [place] [address] [place] WBC (Bld) [#/Vol] 10.19 10*3/uL Normal 3.70-11.[address] [facility] Comment on above: Order Comment: Speci men Type: BLOOD SPECIMENOrdering Facility: [facility] Address: [address] [place], [place] [address] Performed By: #### 5 8410-2 ####[facility] [id number] [place] [address] [place] Erythrocyte distribution width (RBC) [Ratio] 13.6 % Normal 11.5-15.0 [facility] Comment on above: Order Comment: Speci men Type: BLOOD SPECIMENOrdering Facility: [facility] Address: [address] [place], [place] [address] Performed By: #### 5 8410-2 ####[facility] [id number] [place] [address] [place] Hematocrit (Bld) [Volume fraction] 26.6 % Low 39.0-51.0 [facility] Comment on above: Order Comment: Speci men Type: BLOOD SPECIMENOrdering Facility: [facility] Address: [address] [place], [place] [address] Performed By: #### 5 8410-2 ####[facility] LABCLIA [id number] [place] [address] [place] Hemoglobin (Bld) [Mass/Vol] 8.4 g/dL Low 13.0-17.0 [facility] Comment on above: Order Comment: Speci men Type: BLOOD SPECIMENOrdering Facility: [facility] Address: [address] [place], [place] [address] Performed By: #### 5 8410-2 ####[facility] LABIA [id number] [address] [place] MCH (RBC) [Entitic mass] 30.1 pg Normal 26.0-34.0 [facility] Comment on above: Order Comment: Speci men Type: BLOOD SPECIMENOrdering Facility: [facility] Address: [address] [place] [address] Performed By: #### 5 8410-2 ####[facility] LABIA [id number] [address] [place] MCHC (RBC) [Mass/Vol] 31.6 g/dL Normal 30.5-36.0 [facility] Comment on above: Order Comment: Speci men Type: BLOOD SPECIMENOrdering Facility: [facility] Address: [address] [place], [place] [address] Performed By: #### 5 8410-2 ####[facility] LABIA [id number] [address] [place] MCV (RBC) [Entitic vol] 95.3 fL Normal 80.0-100.0 [facility] Comment on above: Order Comment: Speci men Type: BLOOD SPECIMENOrdering Facility: [facility] Address: [address] [place], [place] [address] Performed By: #### 5 8410-2 ####[facility] LABIA [id number] [place] [id number] [address] [place] Nucleated RBC (Bld) [#/Vol] 10*3/uL Normal <0.01 [facility] Comment on above: Order Comment: Speci men Type: BLOOD SPECIMENOrdering Facility: [facility] Address: [address] [place], [place] [address] Performed By: #### 5 8410-2 ####[facility] LABCLIA [id number] [place] [address] [place] Platelet mean volume (Bld) [Entitic vol] 9.7 fL Normal 9.0-12.7 [facility] Comment on above: Order Comment: Speci men Type: BLOOD SPECIMENOrdering Facility: [facility] Address: [address] [place], [place] [address] Performed By: #### 5 8410-2 ####[facility] LABCLIA [id number] [place] [address] [place] Platelets (Bld) [#/Vol] 313 10*3/uL Normal 150-400 [facility] Comment on above: Order Comment: Speci men Type: BLOOD SPECIMENOrdering Facility: [facility] Address: [address] [place], [place] [address] Performed By: #### 5 8410-2 ####[facility] LABCLIA [id number] [place] [address] [place] RBC (Bld) [#/Vol] 2.79 10*6/uL Low 4.20-6.00 [facility] Comment on above: Order Comment: Speci men Type: BLOOD SPECIMENOrdering Facility: [facility] Address: [address] [place], [place] [address] Performed By: #### 5 8410-2 ####[facility] LABCLIA [id number] [place] [address] [place] WBC (Bld) [#/Vol] 9.10 10*3/uL Normal 3.70-11.00 [facility] Comment on above: Order Comment: Speci men Type: BLOOD SPECIMENOrdering Facility: [facility] Address: [address] [place] [address] Performed By: #### 5 8410-2 ####[facility] LABCLIA [id number] [place] [address] [place] NURSING PROGon 11-12-2021 NURSING PROG Normal [facility] PTT, ANTICOAGULANT THERAPYon 11-12-2021 aPTT Coag (PPP) [Time] 80.0 s High 23.0-32.4 [facility] Comment on above: Order Comment: Speci men Type: BLOOD SPECIMENOrdering Facility: [facility] Address: [address] [place] [address] Result Comment: Inte rpret with caution. Sample centrifuged greater than 1 hour from collection time. According to Clinical and Laboratory Standards [place] guidelines, results could be falsely decreased due to heparin neutralization by in vitro release of platelet factor 4. Suggest correlation with clinical findings and redraw if indicated. Performed By: #### P TTAC ####[facility] LABCLIA [id number] [address] aPTT Coag (PPP) [Time] 47.9 s High 23.0-32.4 [facility] Comment on above: Order Comment: Speci men Type: BLOOD SPECIMENOrdering Facility: [facility] Address: [address] [place], [place] [address] Performed By: #### P TTAC ####[facility] LABCLIA [id number] [address] [place] [facility] aPTT Coag (PPP) [Time] 46.5 s High 23.0-32.4 [facility] Comment on above: Order Comment: Speci men Type: BLOOD SPECIMENOrdering Facility: [facility] Address: [address] [place] [address] Performed By: #### P TTAC ####[facility] LABCLIA [id number] [place] [address] [place] Renal function 2000 panelon 11-12-2021 Albumin [Mass/Vol] 2.7 g/dL Low 3.9-4.9 [facility] Comment on above: Order Comment: Speci men Type: BLOOD SPECIMENOrdering Facility: [facility] Address: [address] [place] [address] Performed By: #### 2 4362-6 ####[facility] LABCLIA [id number] [place] [address] [place] Anion gap [Moles/Vol] 11 mmol/L Normal 9-18 [facility] Comment on above: Order Comment: Speci men Type: BLOOD SPECIMENOrdering Facility: [facility] Address: [address] [place], [place] [address] Performed By: #### 2 4362-6 ####[facility] LABIA [id number] [place] [address] [place] Calcium [Mass/Vol] 8.3 mg/dL Low 8.5-10.2 [facility] Comment on above: Order Comment: Speci men Type: BLOOD SPECIMENOrdering Facility: [facility] Address: [address] [place] [address] Performed By: #### 2 4362-6 ####[facility] LABIA [id number] [place] [address] [place] Chloride [Moles/Vol] 111 mmol/L High 97-[address] [facility] Comment on above: Order Comment: Speci men Type: BLOOD SPECIMENOrdering Facility: [facility] Address: [address] [place], [place] [address] Performed By: #### 2 4362-6 ####[facility] LABIA [id number] [place] [id number] [place] CO2 [Moles/Vol] 21 mmol/L Low 22-30 [facility] Comment on above: Order Comment: Speci men Type: BLOOD SPECIMENOrdering Facility: [facility] Address: [address] [place] [address] Performed By: #### 2 4362-6 ####[facility] LABIA [id number] [place] [address] [place] Creatinine [Mass/Vol] 1.07 mg/dL Normal 0.73-1.22 [facility] Comment on above: Order Comment: Speci men Type: BLOOD SPECIMENOrdering Facility: [facility] Address: [address] [place] [address] Performed By: #### 2 4362-6 ####[facility] LABIA [id number] [address] [place] ESTIMATED GLOMERULAR FILTRATION RATE 71 mL/min/1.73m??? Normal >=60 [facility] Comment on above: Order Comment: Speci men Type: BLOOD SPECIMENOrdering Facility: [facility] Address: [address] [place] [address] Result Comment: Sandra mated Glomerular Filtration Rate (eGFR) is calculated using the 2020 CKD-EPI creatinine equation. This equation utilizes serum creatinine, sex, and age as parameters. The creatinine assay has traceable calibration to isotope dilution-mass spectrometry. Refer to KDIGO guidelines for clinical interpretation. In patients with unstable renal function, e.g. those with acute kidney injury, the eGFR may not accurately reflect actual GFR. Performed By: #### 2 4362-6 ####[facility] LABIA [id number] [place] [address] [place] Glucose [Mass/Vol] 133 mg/dL High 74-99 [facility] Comment on above: Order Comment: Speci men Type: BLOOD SPECIMENOrdering Facility: [facility] Address: [address] [place] [address] Result Comment: The [place] Diabetes [employer] (ADA) provides guidance for cutoff values for fasting glucose and random glucose. The ADA defines fasting as no caloric intake for at least 8 hours. Fasting plasma glucose results between 100 to 125 mg/dL indicate increased risk for diabetes (prediabetes).Fasting plasma glucose results greater than or equal to 126 mg/dL meet the criteria for diagnosis of diabetes. In the absence of unequivocal hyperglycemia, results should be confirmed by repeat testing. In a patient with classic symptoms of hyperglycemia or hyperglycemic crisis, random plasma glucose results greater than or equal to 200 mg/dL meet the criteria for diagnosis of diabetes.Reference: Standards of Medical Care in Diabetes 2016, [place] [employer]. Diabetes Care. 2016.39(Suppl 1). Performed By: #### 2 4362-6 ####[facility] LABCLIA [id number] [place] [address] [place] Phosphate [Mass/Vol] 2.8 mg/dL Normal 2.7-4.[address] [facility] Comment on above: Order Comment: Speci men Type: BLOOD SPECIMENOrdering Facility: [facility] Address: [address] [place] [address] Performed By: #### 2 4362-6 ####[facility] LABIA [id number] [place] [address] [place] Potassium [Moles/Vol] 3.0 mmol/L Low 3.7-5.1 [facility] Comment on above: Order Comment: Speci men Type: BLOOD SPECIMENOrdering Facility: [facility] Address: [address] [place] [address] Performed By: #### 2 4362-6 ####[facility] LABCLIA [id number] [place] [address] [place] Sodium [Moles/Vol] 143 mmol/L Normal 136-144 [facility] Comment on above: Order Comment: Speci men Type: BLOOD SPECIMENOrdering Facility: [facility] Address: [address] [place] [address] Performed By: #### 2 4362-6 ####[facility] LABCLIA [id number] [address] [place] Urea nitrogen [Mass/Vol] 9 mg/dL Normal 9-24 [facility] Comment on above: Order Comment: Speci men Type: BLOOD SPECIMENOrdering Facility: [facility] Address: [address] [place] [address] Performed By: #### 2 4362-6 ####[facility] LABCLIA [id number] [place] [address] [place] THERAPY NTon 11-12-2021 THERAPY NT Normal [facility] CBC panel Auto (Bld)on 11-11 Erythrocyte distribution width (RBC) [Ratio] 13.6 % Normal 11.5-15.0 [facility] Comment on above: Order Comment: Speci men Type: BLOOD SPECIMENOrdering Facility: [facility] Address: [address] [place] [address] Performed By: #### 5 8410-2 ####[facility] LABIA [id number] [address] [place] Hematocrit (Bld) [Volume fraction] 27.6 % Low 39.0-51.0 [facility] Comment on above: Order Comment: Speci men Type: BLOOD SPECIMENOrdering Facility: [facility] Address: [address] [place] [address] Performed By: #### 5 8410-2 ####[facility] LABCLIA [id number] [place] [address] [place] Hemoglobin (Bld) [Mass/Vol] 8.9 g/dL Low 13.0-17.0 [facility] Comment on above: Order Comment: Speci men Type: BLOOD SPECIMENOrdering Facility: [facility] Address: [address] [place] [address] Performed By: #### 5 8410-2 ####[facility] LABCLIA [id number] [place] [address] [place] MCH (RBC) [Entitic mass] 30.3 pg Normal 26.0-34.0 [facility] Comment on above: Order Comment: Speci men Type: BLOOD SPECIMENOrdering Facility: [facility] Address: [address] [place], [place] [address] Performed By: #### 5 8410-2 ####[facility] LABCLIA [id number] [address] [place] MCHC (RBC) [Mass/Vol] 32.2 g/dL Normal 30.5-36.0 [facility] Comment on above: Order Comment: Speci men Type: BLOOD SPECIMENOrdering Facility: [facility] Address: [address] [place], [place] [address] Performed By: #### 5 8410-2 ####[facility] LABCLIA [id number] [address] [place] MCV (RBC) [Entitic vol] 93.9 fL Normal 80.0-100.0 [facility] Comment on above: Order Comment: Speci men Type: BLOOD SPECIMENOrdering Facility: [facility] Address: [address] [place], [place] [address] Performed By: #### 5 8410-2 ####[facility] LABCLIA [id number] [address] [place] Nucleated RBC (Bld) [#/Vol] 10*3/uL Normal <0.01 [facility] Comment on above: Order Comment: Speci men Type: BLOOD SPECIMENOrdering Facility: [facility] Address: [address] [place], [place] [address] Performed By: #### 5 8410-2 ####[facility] LABCLIA [id number] [address] [place] Platelet mean volume (Bld) [Entitic vol] 9.4 fL Normal 9.0-12.7 [facility] Comment on above: Order Comment: Speci men Type: BLOOD SPECIMENOrdering Facility: [facility] Address: [address] [place] [address] Performed By: #### 5 8410-2 ####[facility] LABCLIA [id number] [place] [address] [place] Platelets (Bld) [#/Vol] 351 10*3/uL Normal 150-400 [facility] Comment on above: Order Comment: Speci men Type: BLOOD SPECIMENOrdering Facility: [facility] Address: [address] [place] [address] Performed By: #### 5 8410-2 ####[facility] LABIA [id number] [place] [address] [place] RBC (Bld) [#/Vol] 2.94 10*6/uL Low 4.20-6.00 [facility] Comment on above: Order Comment: Speci men Type: BLOOD SPECIMENOrdering Facility: [facility] Address: [address] [place] [address] Performed By: #### 5 8410-2 ####[facility] LABIA [id number] [address] [place] WBC (Bld) [#/Vol] 9.02 10*3/uL Normal 3.70-11.00 [facility] Comment on above: Order Comment: Speci men Type: BLOOD SPECIMENOrdering Facility: [facility] Address: [address] [place] [address] Performed By: #### 5 8410-2 ####[facility] LABIA [id number] [address] [facility] BLOOD TYPEon 022 ABO O Normal [facility] Comment on above: Order Comment: Speci men Type: BLOOD SPECIMENOrdering Facility: [facility] Address: [address] [place] [address] Performed By: #### C ONABO ####[facility] BLOOD BANKCLIA [id number] [place] [address] [place] Rh Nom (Bld) Positive Normal [facility] Comment on above: Order Comment: Speci men Type: BLOOD SPECIMENOrdering Facility: [facility] Address: [address] [place] [address] Performed By: #### C ONABO ####[facility] BLOOD BANKCLIA [id number] [place] [address] [place] Gastrointestinal pathogens i dentified SHELLY+probe Nom (Stl)on 11-11-2021 Campylobacter sp DNA SHELLY+probe Nom (Unsp spec) Not detected Normal Not Detected [facility] Comment on above: Order Comment: Speci men Type: STOOL SPECIMENOrdering Facility: [facility] Address: [address] [place] [address] Performed By: #### 7 9390-1 ####[facility] LABCLIA [id number] [place] [address] [place] Salmonella sp DNA SHELLY+probe Ql (Unsp spec) Not detected Normal Not Detected [facility] Comment on above: Order Comment: Speci men Type: STOOL SPECIMENOrdering Facility: [facility] Address: [address] [place], [place] [address] Performed By: #### 7 9390-1 ####[facility] LABCLIA [id number] [place] [address] [place] Shiga toxin stx gene SHELLY+probe Nom (Unsp spec) Not detected Normal Not Detected [facility] Comment on above: Order Comment: Speci men Type: STOOL SPECIMENOrdering Facility: [facility] Address: [address] [place], [place] [address] Performed By: #### 7 9390-1 ####[facility] LABCLIA [id number] [place] [address] [id number] Shigella sp DNA SHELLY+probe Ql (Unsp spec) Not detected Normal Not Detected [facility] Comment on above: Order Comment: Speci men Type: STOOL SPECIMENOrdering Facility: [facility] Address: [address] [place] [address] Performed By: #### 7 9390-1 ####[facility] LABCLIA [id number] [address] PT panel Coag (PPP)on 2021 INR Coag (PPP) [Relative time] 1.1 {INR} Normal 0.9-1.3 [facility] Comment on above: Order Comment: Lucilai valerei Type: BLOOD SPECIMENOrdering Facility: [facility] Address: [address] [place] [address] Result Comment: Pippa min K Antagonist (VKA) Therapeutic Range: INR 2 to 3 (Target INR of 2.5)Note: For patients treated with VKA drugs, such as warfarin, the [place] [employer] 2012 Guideline recommends a therapeutic INR range of 2 to 3 (target INR of 2.5). This recommendation includes high-risk patients with antiphospholipid syndrome with previous arterial or venous thromboembolism, current-generation mechanical or bioprosthetic aortic heart valve replacement.Note: Patients with mechanical aortic valve replacement and additional risk factors for thromboembolic events (atrial fibrillation, previous thromboembolism, LV dysfunction, hypercoagulable conditions) or an older generation mechanical AVR (i.e., ball in-Cage) or any mechanical MVR should have a INR therapeutic range of 2.5 to 3.5 (target INR of 3).Porfirio SCHWARTZ, et al. Chest 2012, 141:7S-47SLars RA, et al. [facility] 2017, 70: 252-289 Performed By: #### 3 4528-0, 21816-8 ####[facility] LABCLIA [id number] [address] [place] PT Coag (PPP) [Time] 11.1 s Normal 9.7-13.[address] [facility] Comment on above: Order Comment: Speci men Type: BLOOD SPECIMENOrdering Facility: [facility] Address: [address] [place], [place] [address] Performed By: #### 3 4528-0, 41406-7 ####[facility] LABCLIA [id number] [place] [address] [place] Renal function 2000 panelon 11-11-2021 Albumin [Mass/Vol] 2.5 g/dL Low 3.9-4.9 [facility] Comment on above: Order Comment: Speci men Type: BLOOD SPECIMENOrdering Facility: [facility] Address: [address] [place], [place] [address] Performed By: #### 2 4362-6 ####[facility] LABCLIA [id number] [place] [address] [place] Anion gap [Moles/Vol] 11 mmol/L Normal 9-18 [facility] Comment on above: Order Comment: Speci men Type: BLOOD SPECIMENOrdering Facility: [facility] Address: [address] [place], [place] [address] Performed By: #### 2 4362-6 ####[facility] LABCLIA [id number] [place] [address] [place] Calcium [Mass/Vol] 8.5 mg/dL Normal 8.5-10.2 [facility] Comment on above: Order Comment: Speci men Type: BLOOD SPECIMENOrdering Facility: [facility] Address: [address] [place] [address] Performed By: #### 2 4362-6 ####[facility] LABCLIA [id number] [place] [address] [place] Chloride [Moles/Vol] 111 mmol/L High 97-[address] [facility] Comment on above: Order Comment: Speci men Type: BLOOD SPECIMENOrdering Facility: [facility] Address: [address] [place], [place] [address] Performed By: #### 2 4362-6 ####[facility] LABCLIA [id number] [place] [address] [place] CO2 [Moles/Vol] 20 mmol/L Low 22-30 [facility] Comment on above: Order Comment: Speci men Type: BLOOD SPECIMENOrdering Facility: [facility] Address: [address] [place] [address] Performed By: #### 2 4362-6 ####[facility] LABCLIA [id number] [place] [address] [place] Creatinine [Mass/Vol] 1.19 mg/dL Normal 0.73-1.22 [facility] Comment on above: Order Comment: Speci men Type: BLOOD SPECIMENOrdering Facility: [facility] Address: [address] [place] [address] Performed By: #### 2 4362-6 ####[facility] LABIA [id number] [address] [place] ESTIMATED GLOMERULAR FILTRATION RATE 62 mL/min/1.73m??? Normal >=60 [facility] Comment on above: Order Comment: Speci men Type: BLOOD SPECIMENOrdering Facility: [facility] Address: [address] [place] [address] Result Comment: Sandra mated Glomerular Filtration Rate (eGFR) is calculated using the 2020 CKD-EPI creatinine equation. This equation utilizes serum creatinine, sex, and age as parameters. The creatinine assay has traceable calibration to isotope dilution-mass spectrometry. Refer to KDIGO guidelines for clinical interpretation. In patients with unstable renal function, e.g. those with acute kidney injury, the eGFR may not accurately reflect actual GFR. Performed By: #### 2 4362-6 ####[facility] LABCLIA [id number] [place] [address] [place] Glucose [Mass/Vol] 101 mg/dL High 74-99 [facility] Comment on above: Order Comment: Speci men Type: BLOOD SPECIMENOrdering Facility: [facility] Address: [address] [place] [address] Result Comment: The [place] Diabetes Association (ADA) provides guidance for cutoff values for fasting glucose and random glucose. The ADA defines fasting as no caloric intake for at least 8 hours. Fasting plasma glucose results between 100 to 125 mg/dL indicate increased risk for diabetes (prediabetes).Fasting plasma glucose results greater than or equal to 126 mg/dL meet the criteria for diagnosis of diabetes. In the absence of unequivocal hyperglycemia, results should be confirmed by repeat testing. In a patient with classic symptoms of hyperglycemia or hyperglycemic crisis, random plasma glucose results greater than or equal to 200 mg/dL meet the criteria for diagnosis of diabetes.Reference: Standards of Medical Care in Diabetes 2016, [place] [employer]. Diabetes Care. 2016.39(Suppl 1). Performed By: #### 2 4362-6 ####[facility] LABIA [id number] [place] [address] [place] Phosphate [Mass/Vol] 3.3 mg/dL Normal 2.7-4.[address] [facility] Comment on above: Order Comment: Speci men Type: BLOOD SPECIMENOrdering Facility: [facility] Address: [address] [place], [place] [address] Performed By: #### 2 4362-6 ####[facility] LABIA [id number] [place] [address] [place] Potassium [Moles/Vol] 3.7 mmol/L Normal 3.7-5.1 [facility] Comment on above: Order Comment: Speci men Type: BLOOD SPECIMENOrdering Facility: [facility] Address: [address] [place] [id number] Performed By: #### 2 4362-6 ####[facility] LABIA [id number] [place] [address] [place] Sodium [Moles/Vol] 142 mmol/L Normal 136-144 [facility] Comment on above: Order Comment: Speci men Type: BLOOD SPECIMENOrdering Facility: [facility] Address: [address] [place] [address] Performed By: #### 2 4362-6 ####[facility] LABCLIA [id number] [place] [address] [place] Urea nitrogen [Mass/Vol] 10 mg/dL Normal 9-24 [facility] Comment on above: Order Comment: Speci men Type: BLOOD SPECIMENOrdering Facility: [facility] Address: [address] [place] [address] Performed By: #### 2 4362-6 ####[facility] LABIA [id number] [address] [place] THERAPY NTon 11-11-2021 THERAPY NT Normal [facility] THERAPY NT Normal [facility] THERAPY NT Normal [facility] THERAPY NT Normal [facility] XR ENTERIC TUBE INJECTIONon 11-11-2021 XR ENTERIC TUBE INJECTION Normal [facility] XR MOD BARIUM SWALLOW W SPEE Temo 11-11-2021 XR MOD BARIUM SWALLOW W SPEECH Normal [facility] aPTT PPPon 11-11-2021 aPTT Coag (PPP) [Time] 28.0 s Normal 23.0-32.4 [facility] Comment on above: Order Comment: Speci men Type: BLOOD SPECIMENOrdering Facility: [facility] Address: [address] [place] [address] Performed By: #### 3 4528-0, 47210-3 ####[facility] LABCLIA [id number] [place] [address] [place] Bacteria Bld Culton 11-11-19 22 Bacteria identified Cx Nom (Bld) ORGANISM ID: 1 Staphylococcus epidermidis Probable contaminant. Susceptibility testing will not be performed. Call lab within 72 hours to initiate workup if clinically indicated. GRAM STAIN: Gram positive cocci in clusters Abnormal [facility] Comment on above: Performed By: #### 6 00-7 ####[facility] LABCLIA [id number] [address] [place] Bacteria identified Cx Nom (Bld) CULTURE, BLOOD: No growth 5 days Normal [facility] Comment on above: Performed By: #### 6 00-7 ####[facility] LABCLIA [id number] [place] [address] [place] Bacteria Spec Resp Culton Bacteria identified Respiratory culture Nom (Unsp spec) Abnormal [facility] Comment on above: Performed By: #### 3 2355-0 ####[facility]CLIA [id number] [place] [address] [place] CASE MGT INIT ASSESon 2021 CASE MGT INIT ASSES Normal [facility] CONSULTon 11-10-2021 CONSULT Normal [facility] CONSULT Normal [facility] CT ABD/PEL W IVCONon 022 CT ABD/PEL W IVCON Invalid Interpretation Code [facility] ED NOTEon 11-10-2021 ED NOTE HNO ID: [id number] Author: Radha Corley RN Service: Emergency Medicine Author Type: Registered Nurse Type: ED Notes Filed: 11/10/2021 12:24 AM Note Text: Pt to CT scan Normal [facility] HISTORY PHYSICALon HISTORY PHYSICAL Normal [facility] NUTRITIONon 11-10-2021 NUTRITION Normal [facility] PT panel Coag (PPP)on 2021 INR Coag (PPP) [Relative time] 1.1 {INR} Normal 0.9-1.3 [facility] Comment on above: Order Comment: Speci men Type: BLOOD SPECIMENOrdering Facility: [facility] Address: [address] [place] [place] [address] Result Comment: Pippa min K Antagonist (VKA) Therapeutic Range: INR 2 to 3 (Target INR of 2.5)Note: For patients treated with VKA drugs, such as warfarin, the [place] [employer] 2012 Guideline recommends a therapeutic INR range of 2 to 3 (target INR of 2.5). This recommendation includes high-risk patients with antiphospholipid syndrome with previous arterial or venous thromboembolism, current-generation mechanical or bioprosthetic aortic heart valve replacement.Note: Patients with mechanical aortic valve replacement and additional risk factors for thromboembolic events (atrial fibrillation, previous thromboembolism, LV dysfunction, hypercoagulable conditions) or an older generation mechanical AVR (i.e., ball in-Cage) or any mechanical MVR should have a INR therapeutic range of 2.5 to 3.5 (target INR of 3).Porfirio GH, et al. Chest 2012, 141:7S-47SNishimura RA, et al. [facility] 2017, 70: 252-289 Performed By: #### 1 4979-9, 26572-5 ####[facility] LABCLIA [id number] [place] [address] [place] PT Coag (PPP) [Time] 11.4 s Normal 9.7-13.[address] [facility] Comment on above: Order Comment: Speci men Type: BLOOD SPECIMENOrdering Facility: [facility] Address: [address] [place] [address] Performed By: #### 1 4979-9, 54731-9 ####[facility] LABCLIA [id number] [address] [place] THERAPY NTon 11-10-2021 THERAPY NT Normal [facility] TYPE + SCREENon 11-10-2021 ABO O Normal [facility] Comment on above: Order Comment: Speci men Type: BLOOD SPECIMENOrdering Facility: [facility] Address: [address] [place] [address] Performed By: #### T SCR ####[facility] BLOOD BANKCLIA [id number] [address] [place] HISTORICAL AB SCR STATUS Negative Normal [facility] Comment on above: Order Comment: Speci men Type: BLOOD SPECIMENOrdering Facility: [facility] Address: [address] [place], [place] [address] Performed By: #### T SCR ####[facility] BLOOD BANKCLIA [id number] [place] [address] [place] Rh Nom (Bld) Positive Normal [facility] Comment on above: Order Comment: Speci men Type: BLOOD SPECIMENOrdering Facility: [facility] Address: [address] [place] [address] Performed By: #### T SCR ####[facility] BLOOD BANKIA [id number] [address] [facility] TYPE AND SCREEN EXPIRATION 11/13/2021 23:59 Normal [facility] Comment on above: Order Comment: Speci men Type: BLOOD SPECIMENOrdering Facility: [facility] Address: [address] [place] [address] Performed By: #### T SCR ####[facility] BLOOD BANKIA [id number] [address] [place] Urinalysis complete panel (U )on 11-10-2021 Bacteria LM.HPF (Urine sed) [#/Area] Rare Abnormal None Seen [facility] Comment on above: Order Comment: Speci men Type: URINE SPECIMENOrdering Facility: [facility] Address: [address] [place] [address] Performed By: #### 2 4356-8 ####[facility] LABCLIA [id number] [place] [address] [place] Bilirubin Ql (U) Negative Normal Negative [facility] Comment on above: Order Comment: Speci men Type: URINE SPECIMENOrdering Facility: [facility] Address: [address] [place] [address] Performed By: #### 2 4356-8 ####[facility] LABCLIA [id number] [address] [place] Clarity (Unsp spec) Clear Normal Clear [facility] Comment on above: Order Comment: Speci men Type: URINE SPECIMENOrdering Facility: [facility] Address: [address] [place], [place] [address] Performed By: #### 2 4356-8 ####[facility] LABCLIA [id number] [place] [address] [place] Color (U) Straw Normal Yellow [facility] Comment on above: Order Comment: Speci men Type: URINE SPECIMENOrdering Facility: [facility] Address: [address] [place], [place] [address] Performed By: #### 2 4356-8 ####[facility] LABCLIA [id number] [address] [place] Glucose Test strip (U) [Mass/Vol] Negative Normal Negative [facility] Comment on above: Order Comment: Speci men Type: URINE SPECIMENOrdering Facility: [facility] Address: [address] [place], [place] [address] Performed By: #### 2 4356-8 ####[facility] LABCLIA [id number] [place] [address] [place] Hemoglobin Ql (U) Negative Normal Negative [facility] Comment on above: Order Comment: Speci men Type: URINE SPECIMENOrdering Facility: [facility] Address: [address] [place], [place] [address] Performed By: #### 2 4356-8 ####[facility] LABCLIA [id number] [place] [address] [place] Ketones Ql (U) Negative Normal Negative [facility] Comment on above: Order Comment: Speci men Type: URINE SPECIMENOrdering Facility: [facility] Address: [address] [place], [place] [address] Performed By: #### 2 4356-8 ####[facility] LABCLIA [id number] [place] [address] [place] Leukocyte esterase Test strip Ql (U) 2+ Abnormal Negative [facility] Comment on above: Order Comment: Speci men Type: URINE SPECIMENOrdering Facility: [facility] Address: [address] [place], [place] [address] Performed By: #### 2 4356-8 ####[facility] LABCLIA [id number] [place] [address] [place] Nitrite Ql (U) Negative Normal Negative [facility] Comment on above: Order Comment: Speci men Type: URINE SPECIMENOrdering Facility: [facility] Address: [address] [place], [place] [address] Performed By: #### 2 4356-8 ####[facility] LABIA [id number] [place] [address] [place] pH (U) 6.0 [pH] Normal 5.0-8.0 [facility] Comment on above: Order Comment: Speci men Type: URINE SPECIMENOrdering Facility: [facility] Address: [address] [place], [place] [address] Performed By: #### 2 4356-8 ####[facility] LABIA [id number] [place] [address] [place] [facility] Protein (U) [Mass/Vol] 1+ Abnormal Negative [facility] Comment on above: Order Comment: Speci men Type: URINE SPECIMENOrdering Facility: [facility] Address: [address] [place], [place] [address] Performed By: #### 2 4356-8 ####[facility] LABIA [id number] [place] [address] [place] RBC LM.HPF (Urine sed) [#/Area] 0-3 /HPF Normal 0-3 /HPF [facility] Comment on above: Order Comment: Speci men Type: URINE SPECIMENOrdering Facility: [facility] Address: [address] [place], [place] [address] Performed By: #### 2 4356-8 ####[facility] LABIA [id number] [place] [address] [place] Specific gravity (U) [Rel density] 1.031 High 1.005-1.030 [facility] Comment on above: Order Comment: Speci men Type: URINE SPECIMENOrdering Facility: [facility] Address: [address] [place] [address] Performed By: #### 2 4356-8 ####[facility] LABIA [id number] [place] [address] [place] Urobilinogen Ql (U) Negative Normal Negative [facility] Comment on above: Order Comment: Speci men Type: URINE SPECIMENOrdering Facility: [facility] Address: [address] [place] [address] Performed By: #### 2 4356-8 ####[facility] [id number] [place] [address] [place] WBC LM.HPF (Urine sed) [#/Area] 11-25 /HPF Abnormal 0-5 /HPF [facility] Comment on above: Order Comment: Speci men Type: URINE SPECIMENOrdering Facility: [facility] Address: [address] [place] [address] Performed By: #### 2 4356-8 ####[facility] LABIA [id number] [place] [address] [place] Yeast.budding LM.HPF (Urine sed) [#/Area] Few Abnormal None Seen [facility] Comment on above: Order Comment: Speci men Type: URINE SPECIMENOrdering Facility: [facility] Address: [address] [place], [place] [address] Performed By: #### 2 4356-8 ####[facility] LABIA [id number] [place] [address] [place] XR CHEST 2V FRONTAL/LATon XR CHEST 2V FRONTAL/LAT Normal [facility] aPTT PPPon 11-10-2021 aPTT Coag (PPP) [Time] 28.8 s Normal 23.0-32.4 [facility] Comment on above: Order Comment: Speci men Type: BLOOD SPECIMENOrdering Facility: [facility] Address: [address] [place] [address] Performed By: #### 1 4979-9, 70112-9 ####[facility] LABCLIA [id number] [place] [address] [place] CBC W Auto Differential pane l (Bld)on 11-09-2021 Basophils (Bld) [#/Vol] 0.09 10*3/uL Normal <0.11 [facility] Comment on above: Order Comment: Speci men Type: BLOOD SPECIMENOrdering Facility: [facility] Address: [address] [place] [address] Performed By: #### 5 7021-8, 48219-3 ####[facility] LABIA [id number] [place] [address] [place] Basophils/100 WBC (Bld) 0.6 % Normal [facility] Comment on above: Order Comment: Speci men Type: BLOOD SPECIMENOrdering Facility: [facility] Address: [address] [place] [address] Performed By: #### 5 7021-8, 67721-5 ####[facility] LABCLIA [id number] [address] [place] Differential cell count method Nom (Bld) Auto Normal [facility] Comment on above: Order Comment: Speci men Type: BLOOD SPECIMENOrdering Facility: [facility] Address: [address] [place] [address] Performed By: #### 5 7021-8, 53928-3 ####[facility] LABCLIA [id number] [place] [address] [place] Eosinophils (Bld) [#/Vol] 0.45 10*3/uL Normal <0.46 [facility] Comment on above: Order Comment: Speci men Type: BLOOD SPECIMENOrdering Facility: [facility] Address: [address] [place] [address] Performed By: #### 5 7021-8, 11381-1 ####[facility] LABCLIA [id number] [address] [place] Eosinophils/100 WBC (Bld) 3.2 % Normal [facility] Comment on above: Order Comment: Speci men Type: BLOOD SPECIMENOrdering Facility: [facility] Address: [address] [place] [address] Performed By: #### 5 7021-8, 62314-7 ####[facility] LABCLIA [id number] [address] STATES OF [facility] Erythrocyte distribution width (RBC) [Ratio] 13.5 % Normal 11.5-15.0 [facility] Comment on above: Order Comment: Speci men Type: BLOOD SPECIMENOrdering Facility: [facility] Address: [address] [place] [address] Performed By: #### 5 7021-8, 87624-5 ####[facility] LABCLIA [id number] [place] [address] [place] Hematocrit (Bld) [Volume fraction] 33.5 % Low 39.0-51.0 [facility] Comment on above: Order Comment: Speci men Type: BLOOD SPECIMENOrdering Facility: [facility] Address: [address] [place] [address] Performed By: #### 5 7021-8, 52851-6 ####[facility] LABCLIA [id number] [place] [address] [place] Hemoglobin (Bld) [Mass/Vol] 10.7 g/dL Low 13.0-17.0 [facility] Comment on above: Order Comment: Speci men Type: BLOOD SPECIMENOrdering Facility: [facility] Address: [address] [place], [place] [address] Performed By: #### 5 7021-8, 82668-3 ####[facility] LABCLIA [id number] [address] [place] IMMATURE GRAN % 0.8 % Normal [facility] Comment on above: Order Comment: Speci men Type: BLOOD SPECIMENOrdering Facility: [facility] Address: [address] [place], [place] [address] Performed By: #### 5 7021-8, 01914-7 ####[facility] LABCLIA [id number] [place] [address] [place] IMMATURE GRAN ABS 0.11 k/uL High <0.10 [facility] Comment on above: Order Comment: Speci men Type: BLOOD SPECIMENOrdering Facility: [facility] Address: [address] [place], [place] [address] Performed By: #### 5 7021-8, 95132-1 ####[facility] LABCLIA [id number] [place] [address] [place] Lymphocytes (Bld) [#/Vol] 1.73 10*3/uL Normal 1.00-4.00 [facility] Comment on above: Order Comment: Speci men Type: BLOOD SPECIMENOrdering Facility: [facility] Address: [address] [place], [place] [address] Performed By: #### 5 7021-8, 62833-1 ####[facility] LABCLIA [id number] [address] [place] Lymphocytes/100 WBC (Bld) 12.1 % Normal [facility] Comment on above: Order Comment: Speci men Type: BLOOD SPECIMENOrdering Facility: [facility] Address: [address] [place] [address] Performed By: #### 5 7021-8, 33760-0 ####[facility] LABCLIA [id number] [place] [address] [place] MCH (RBC) [Entitic mass] 30.1 pg Normal 26.0-34.0 [facility] Comment on above: Order Comment: Speci men Type: BLOOD SPECIMENOrdering Facility: [facility] Address: [address] [place], [place] [address] Performed By: #### 5 7021-8, 96529-1 ####[facility] LABIA [id number] [address] [place] MCHC (RBC) [Mass/Vol] 31.9 g/dL Normal 30.5-36.0 [facility] Comment on above: Order Comment: Speci men Type: BLOOD SPECIMENOrdering Facility: [facility] Address: [address] [place], [place] [address] Performed By: #### 5 7021-8, 22934-4 ####[facility] LABIA [id number] [place] [address] [place] MCV (RBC) [Entitic vol] 94.4 fL Normal 80.0-100.0 [facility] Comment on above: Order Comment: Speci men Type: BLOOD SPECIMENOrdering Facility: [facility] Address: [address] [place] [address] Performed By: #### 5 7021-8, 69917-3 ####[facility] LABIA [id number] [place] [address] [place] Monocytes (Bld) [#/Vol] 0.66 10*3/uL Normal <0.87 [facility] Comment on above: Order Comment: Speci men Type: BLOOD SPECIMENOrdering Facility: [facility] Address: [address] [place], [place] [address] Performed By: #### 5 7021-8, 89845-8 ####[facility] LABIA [id number] [place] [address] [place] Monocytes/100 WBC (Bld) 4.6 % Normal [facility] Comment on above: Order Comment: Speci men Type: BLOOD SPECIMENOrdering Facility: [facility] Address: [address] [place], [place] [address] Performed By: #### 5 7021-8, 80719-3 ####[facility] LABIA [id number] [place] [address] [place] Neutrophils (Bld) [#/Vol] 11.24 10*3/uL High 1.45-7.50 [facility] Comment on above: Order Comment: Speci men Type: BLOOD SPECIMENOrdering Facility: [facility] Address: [address] [place], [place] [address] Performed By: #### 5 7021-8, 93734-2 ####[facility] LABIA [id number] [place] [address] [place] Neutrophils/100 WBC (Bld) 78.7 % Normal [facility] Comment on above: Order Comment: Speci men Type: BLOOD SPECIMENOrdering Facility: [facility] Address: [address] [place] [address] Performed By: #### 5 7021-8, 95493-2 ####[facility] LABIA [id number] [place] [address] [place] Nucleated RBC (Bld) [#/Vol] 10*3/uL Normal <0.01 [facility] Comment on above: Order Comment: Speci men Type: BLOOD SPECIMENOrdering Facility: [facility] Address: [address] [place] [address] Performed By: #### 5 7021-8, 28293-2 ####[facility] LABCLIA [id number] [place] [address] [place] Nucleated RBC/100 WBC (Bld) [Ratio] 0.0 /100 WBC Normal [facility] Comment on above: Order Comment: Speci men Type: BLOOD SPECIMENOrdering Facility: [facility] Address: [address] [place] [address] Performed By: #### 5 7021-8, 22899-2 ####[facility] LABCLIA [id number] [place] [address] [place] Platelet mean volume (Bld) [Entitic vol] 9.2 fL Normal 9.0-12.7 [facility] Comment on above: Order Comment: Speci men Type: BLOOD SPECIMENOrdering Facility: [facility] Address: [address] [place] [address] Performed By: #### 5 7021-8, 58640-0 ####[facility] LABCLIA [id number] [place] [address] [place] Platelets (Bld) [#/Vol] 432 10*3/uL High 150-400 [facility] Comment on above: Order Comment: Speci men Type: BLOOD SPECIMENOrdering Facility: [facility] Address: [address] [place], [place] [address] Performed By: #### 5 7021-8, 75007-3 ####[facility] LABCLIA [id number] [place] [address] [place] RBC (Bld) [#/Vol] 3.55 10*6/uL Low 4.20-6.00 [facility] Comment on above: Order Comment: Speci men Type: BLOOD SPECIMENOrdering Facility: [facility] Address: [address] [place] [address] Performed By: #### 5 7021-8, 32137-2 ####[facility] LABCLIA [id number] [address] [address] [place] WBC (Bld) [#/Vol] 14.28 10*3/uL High 3.70-11.[address] [facility] Comment on above: Order Comment: Speci men Type: BLOOD SPECIMENOrdering Facility: [facility] Address: [address] [place] [address] Performed By: #### 5 7021-8, 19425-5 ####[facility] LABCLIA [id number] [place] [id number] [place] Comprehensive metabolic 2000 panelon 11-09-2021 Albumin [Mass/Vol] 3.4 g/dL Low 3.9-4.9 [facility] Comment on above: Order Comment: Speci men Type: BLOOD SPECIMENOrdering Facility: [facility] Address: [address] [place] [address] Performed By: #### 2 4323-8, 3040-3, 11864-3, 87489-6, 3016-3 ####[facility] LABCLIA [id number] [place] [address] [place] ALP [Catalytic activity/Vol] 92 U/L Normal 38-113 [facility] Comment on above: Order Comment: Speci men Type: BLOOD SPECIMENOrdering Facility: [facility] Address: [address] [place], [place] [address] Performed By: #### 2 4323-8, 3040-3, 83159-1, 37916-6, 3016-3 ####[facility] LABCLIA [id number] [place] [id number] [place] ALT [Catalytic activity/Vol] 6 U/L Low 10-54 [facility] Comment on above: Order Comment: Speci men Type: BLOOD SPECIMENOrdering Facility: [facility] Address: [address] [place], [place] [address] Performed By: #### 2 4323-8, 3040-3, 21376-3, 47344-5, 3016-3 ####[facility]CLIA [id number] [place] [id number] [place] Anion gap [Moles/Vol] 12 mmol/L Normal 9-18 [facility] Comment on above: Order Comment: Speci men Type: BLOOD SPECIMENOrdering Facility: [facility] Address: [address] [place] [address] Performed By: #### 2 4323-8, 3040-3, 00391-3, 55177-2, 3016-3 ####[facility] LABIA [id number] [place] [address] [place] AST [Catalytic activity/Vol] 8 U/L Low 14-40 [facility] Comment on above: Order Comment: Speci men Type: BLOOD SPECIMENOrdering Facility: [facility] Address: [address] [place] [address] Performed By: #### 2 4323-8, 3040-3, 22693-7, 98145-4, 6-3 ####[facility]IA [id number] [place] [address] [place] Bilirubin [Mass/Vol] 0.2 mg/dL Normal 0.2-1.[address] [facility] Comment on above: Order Comment: Speci men Type: BLOOD SPECIMENOrdering Facility: [facility] Address: [address] [place] [address] Performed By: #### 2 4323-8, 3040-3, 04713-3, 88492-5, 3016-3 ####[facility] LABCLIA [id number] [place] [address] [place] Calcium [Mass/Vol] 9.7 mg/dL Normal 8.5-10.2 [facility] Comment on above: Order Comment: Speci men Type: BLOOD SPECIMENOrdering Facility: [facility] Address: [address] [place], [place] [address] Performed By: #### 2 4323-8, 3040-3, 68450-7, 63202-1, 3015-3 ####[facility]CLIA [id number] [facility]ENU[facility]ETHOD[facility] [place] [id number] [place] Chloride [Moles/Vol] 107 mmol/L High 97-[address] [facility] Comment on above: Order Comment: Speci men Type: BLOOD SPECIMENOrdering Facility: [facility] Address: [address] [place], [place] [id number] Performed By: #### 2 4323-8, 3040-3, 24991-9, 82489-8, 6-3 ####[facility] LABCLIA [id number] [facility] [place] [address] [place] CO2 [Moles/Vol] 22 mmol/L Normal 22-30 [facility] Comment on above: Order Comment: Speci men Type: BLOOD SPECIMENOrdering Facility: [facility] Address: [address] [place], [place] [id number] Performed By: #### 2 4323-8, 3040-3, 95584-0, 25209-2, 6-3 ####[facility] LABCLIA [id number] [facility] [place] [address] [place] Creatinine [Mass/Vol] 1.13 mg/dL Normal 0.73-1.22 [facility] Comment on above: Order Comment: Speci men Type: BLOOD SPECIMENOrdering Facility: [facility] Address: [address] [place], [place] [id number] Performed By: #### 2 4323-8, 3040-3, 84999-4, 62253-2, 6-3 ####[facility] LABCLIA [id number] [facility] [place] [id number] [place] ESTIMATED GLOMERULAR FILTRATION RATE 66 mL/min/1.73m??? Normal >=60 [facility] Comment on above: Order Comment: Misbah valerie Type: BLOOD SPECIMENOrdering Facility: [facility] Address: [address] [place] [address] Result Comment: Sandra mated Glomerular Filtration Rate (eGFR) is calculated using the 2020 CKD-EPI creatinine equation. This equation utilizes serum creatinine, sex, and age as parameters. The creatinine assay has traceable calibration to isotope dilution-mass spectrometry. Refer to KDIGO guidelines for clinical interpretation. In patients with unstable renal function, e.g. those with acute kidney injury, the eGFR may not accurately reflect actual GFR. Performed By: #### 2 4323-8, 3040-3, 38604-7, 69464-1, 6-3 ####[facility] LABCLIA [id number] [address] [address] [place] Glucose [Mass/Vol] 130 mg/dL High 74-99 [facility] Comment on above: Order Comment: Misbah padilla Type: BLOOD SPECIMENOrdering Facility: [facility] Address: [address] [place] [address] Result Comment: The [place] Diabetes Association (ADA) provides guidance for cutoff values for fasting glucose and random glucose. The ADA defines fasting as no caloric intake for at least 8 hours. Fasting plasma glucose results between 100 to 125 mg/dL indicate increased risk for diabetes (prediabetes).Fasting plasma glucose results greater than or equal to 126 mg/dL meet the criteria for diagnosis of diabetes. In the absence of unequivocal hyperglycemia, results should be confirmed by repeat testing. In a patient with classic symptoms of hyperglycemia or hyperglycemic crisis, random plasma glucose results greater than or equal to 200 mg/dL meet the criteria for diagnosis of diabetes.Reference: Standards of Medical Care in Diabetes 2016, [place] Diabetes Association. Diabetes Care. 2016.39(Suppl 1). Performed By: #### 2 4323-8, 3040-3, 06885-9, 72342-8, 6-3 ####[facility] LABCLIA [id number] [address] [address] [place] Potassium [Moles/Vol] 4.0 mmol/L Normal 3.7-5.1 [facility] Comment on above: Order Comment: Speci men Type: BLOOD SPECIMENOrdering Facility: [facility] Address: [address] [place] [address] Performed By: #### 2 4323-8, 3040-3, 07987-6, 31403-3, 3016-3 ####[facility] LABCLIA [id number] [place] [address] [place] Protein [Mass/Vol] 6.5 g/dL Normal 6.3-8.0 [facility] Comment on above: Order Comment: Speci men Type: BLOOD SPECIMENOrdering Facility: [facility] Address: [address] [place] [address] Performed By: #### 2 4323-8, 3040-3, 19818-8, 42473-0, 3016-3 ####[facility] LABCLIA [id number] [place] [address] [place] Sodium [Moles/Vol] 141 mmol/L Normal 136-144 [facility] Comment on above: Order Comment: Speci men Type: BLOOD SPECIMENOrdering Facility: [facility] Address: [address] [place] [address] Performed By: #### 2 4323-8, 3040-3, 76405-0, 58260-6, 3016-3 ####[facility] LABCLIA [id number] [place] [address] [place] Urea nitrogen [Mass/Vol] 13 mg/dL Normal 9-24 [facility] Comment on above: Order Comment: Speci men Type: BLOOD SPECIMENOrdering Facility: [facility] Address: [address] [place] [address] Performed By: #### 2 4323-8, 3040-3, 06764-5, 06852-3, 3016-3 ####[facility] LABCLIA [id number] [place] [id number] [place] ED NOTEon 11-09-2021 ED NOTE Normal [facility] ED PROV NOTEon 11-09-2021 ED PROV NOTE Normal [facility] HbA1c (Bld)on 11-09-2021 Average glucose Estimated from glycated hemoglobin (Bld) [Mass/Vol] 128 mg/dL Normal [facility] Comment on above: Order Comment: Speci men Type: BLOOD SPECIMENOrdering Facility: [facility] Address: [address] [place] [address] Result Comment: eAG: (Estimated average glucose) is a calculated value from HgbA1c and is shared services representative of the average blood glucose level in the last 2-3 month period. Performed By: #### 5 7021-8, 39105-7 ####[facility] LABCLIA [id number] [address] STATES OF [facility] HbA1c (Bld) [Mass fraction] 6.1 % High 4.3-5.6 [facility] Comment on above: Order Comment: Misbah padilla Type: BLOOD SPECIMENOrdering Facility: [facility] Address: [address] [place] [address] Result Comment: [place] Diabetes Association guidelines indicate that patients with HgbA1c in the range 5.7-6.4% are at increased risk for development of diabetes, and intervention by lifestyle modification may be beneficial. HgbA1c greater or equal to 6.5% is considered diagnostic of diabetes. Performed By: #### 5 7021-8, 58887-9 ####[facility] LABCLIA [id number] [address] [place] Iron and Iron binding capaci ty panelon 11-09-2021 Iron [Mass/Vol] 44 ug/dL Normal 41-186 [facility] Comment on above: Order Comment: Lucilai men Type: BLOOD SPECIMENOrdering Facility: [facility] Address: [address] [place] [address] Performed By: #### 2 4323-8, 3040-3, 65863-9, 03037-3, 3016-3 ####[facility] LABCLIA [id number] [place] [id number] [place] Iron binding capacity [Mass/Vol] 139 ug/dL Low 232-386 [facility] Comment on above: Order Comment: Speci men Type: BLOOD SPECIMENOrdering Facility: [facility] Address: [address] [place] [address] Performed By: #### 2 4323-8, 3040-3, 39772-7, 00175-7, 3016-3 ####[facility] LABIA [id number] [place] [address] [place] Iron/TIBC [Molar ratio] 31.7 % Normal 15.0-57.0 [facility] Comment on above: Order Comment: Speci men Type: BLOOD SPECIMENOrdering Facility: [facility] Address: [address] [place] [address] Performed By: #### 2 4323-8, 3040-3, 92228-2, 93380-0, 3016-3 ####[facility] LABIA [id number] [place] [address] [place] Lipase SerPl-cCncon 11-10-19 Lipase [Catalytic activity/Vol] 13 U/L Low 16-61 [facility] Comment on above: Order Comment: Speci men Type: BLOOD SPECIMENOrdering Facility: [facility] Address: [address] [place] [address] Performed By: #### 2 4323-8, 3040-3, 20364-1, 36764-4, 3016-3 ####[facility] LABIA [id number] [place] [address] [place] Magnesium SerPl-mCncon 11-09 Magnesium [Mass/Vol] 2.0 mg/dL Normal 1.7-2.[address] [facility] Comment on above: Order Comment: Speci men Type: BLOOD SPECIMENOrdering Facility: [facility] Address: [address] [place] [address] Performed By: #### 2 4323-8, 3040-3, 67840-8, 26446-7, 3016-3 ####[facility] LABIA [id number] [place] [address] [place] SARS-CoV-2 RNA Resp Ql SHELLY+p robeon 11-09-2021 SARS-CoV-2 (COVID-19) RNA SHELLY+probe Ql (Resp) COVID 19 RESULT: SARS-CoV-2 (Agent of COVID-19) Not Detected by RT-PCR or equivalent method. This test has been authorized by FDA under an Emergency Use Authorization (EUA). Normal [facility] Comment on above: Performed By: #### 9 4500-6 ####[facility] [id number] [place] [address] [place] TROPONIN Ton 11-09-2021 Troponin T.cardiac [Mass/Vol] 0.011 ug/L Normal 0.000-0.029 [facility] Comment on above: Order Comment: Speci men Type: BLOOD SPECIMENOrdering Facility: [facility] Address: [address] [place] [address] Performed By: #### T NT ####[facility] [id number] [place] [address] [place] TSH SerPl-aCncon 11-09-2021 TSH Qn 0.548 m[IU]/L Normal 0.270-4.200 [facility] Comment on above: Order Comment: Speci men Type: BLOOD SPECIMENOrdering Facility: [facility] Address: [address] [place] [address] Performed By: #### 2 4323-8, 3040-3, 47988-5, 04344-7, 3016-3 ####[facility] LABIA [id number] [place] [id number] [place] Echocardiogramon 11-04-2021 Echocardiography [facility] anayeli [address] [place] [address], [address], [place] [address] TRANSTHORACIC ECHOCARDIOGRAM REPORT Patient Name: FRANKI Maki Physician: [id number] Glenn HERNANDEZ MD Study Date: 11/04/2021 Referring Physician: [id number] LAURO COLLINS MRN/PID: [id number] PCP: Micheal Gutiérrez Accession/Order#: [id number] Department Location: [facility] Date of : 1940 Fellow: Gender: M Nurse: Admit Date: Staffing Director: Zeenat Trejo RDCS, T Height: 180.34 cm CC Report to: Weight: 68.04 kg Study Type: Echocardiogram BSA: 1.87 m2 Blood Pressure: 142 /70 mmHg Diagnosis/ICD: R07.89-Other chest pain; I25.5-Ischemic cardiomyopathy Indication: Hyperlipidemia, CAD, CA and PTCA-06/2021, CHF, COPD, Tobacco Abuse, Peripheral Vascular Disease, Right SFA Stent Procedure/CPT: Echo Complete w Full Doppler-97811 Study Detail: The following Echo studies were performed: 2D, M-Mode, Doppler and color flow. PHYSICIAN INTERPRETATION: Left Ventricle: The left ventricular systolic function is normal, with an estimated ejection fraction of 60%. The left ventricular cavity size is normal. Spectral Doppler shows an impaired relaxation pattern of left ventricular diastolic filling. Left Atrium: The left atrium is normal in size. Right Ventricle: The right ventricle is normal in size. There is normal right ventricular global systolic function. Right Atrium: The right atrium is normal in size. Aortic Valve: The aortic valve appears structurally normal. There is no evidence of aortic valve regurgitation. The peak instantaneous gradient of the aortic valve is 8.4 mmHg. The mean gradient of the aortic valve is 4.0 mmHg. Mitral Valve: The mitral valve is normal in structure. There is no evidence of mitral valve regurgitation. Tricuspid Valve: The tricuspid valve is structurally normal. No evidence of tricuspid regurgitation. Pulmonic Valve: The pulmonic valve is structurally normal. There is no indication of pulmonic valve regurgitation. Pericardium: There is no pericardial effusion noted. Aorta: The aortic root is normal. CONCLUSIONS: 1. The left ventricular systolic function is normal with a 60% estimated ejection fraction. 2. Spectral Doppler shows an impaired relaxation pattern of left ventricular diastolic filling. 3. When compared to prior study LVEF has normalized. QUANTITATIVE DATA SUMMARY: 2D MEASUREMENTS: Normal Ranges: Ao Root d: 3.20 cm (2.0-3.7cm) LAs: 3.70 cm (2.7-4.0cm) RVIDd: 2.90 cm (0.9-3.6cm) IVSd: 1.40 cm (0.6-1.1cm) LVPWd: 1.10 cm (0.6-1.1cm) LVIDd: 4.60 cm (3.9-5.9cm) LVIDs: 3.10 cm LV Mass Index: 116.5 g/m2 LV % FS 32.6 % LV SYSTOLIC FUNCTION BY 2D PLANIMETRY (MOD): Normal Ranges: EF-A4C View: 61.6 % (>55%) LV DIASTOLIC FUNCTION: Normal Ranges: MV Peak E: 0.76 m/s (0.7-1.2 m/s) MV Peak A: 0.98 m/s (0.42-0.7 m/s) E/A Ratio: 0.78 (1.0-2.2) MV lateral e' 0.10 m/s MV medial e' 0.07 m/s E/e' Ratio: 7.40 (<8.0) MITRAL VALVE: Normal Ranges: MV Vmax: 1.03 m/s (<1.3m/s) MV peak P.2 mmHg (<5mmHg) MV mean P.0 mmHg (<48mmHg) AORTIC VALVE: Normal Ranges: AoV Vmax: 1.45 m/s (<1.7m/s) AoV Peak P.4 mmHg (<20mmHg) AoV Mean P.0 mmHg (1.7-11.5mmHg) LVOT Max Joann: 0.93 m/s (<1.1m/s) AoV VTI: 30.90 cm (18-25cm) LVOT VTI: 20.90 cm LVOT Diameter: 2.20 cm (1.8-2.4cm) AoV Area, VTI: 2.57 cm2 (2.5-5.5cm2) AoV Area,Vmax: 2.44 cm2 (2.5-4.5cm2) AoV Dimensionless Index: 0.68 PULMONIC VALVE: Normal Ranges: PV Max Joann: 1.3 m/s (0.6-0.9m/s) PV Max P.7 mmHg [id number] Glenn Kapoor MD Electronically signed on 11/05/2021 at 9:06:54 AM Final Normal [facility] VASC LAB PVR W/O EXERCISEon 11-04-2021 VASC LAB PVR W/O EXERCISE [address], [address] [place] [address] Vascular Lab Report PVR With Out Exercise Patient Name: FRANKI Glynn Physician: [id number] Saige Bassett MD, [facility] Study Date: 11/04/2021 Referring [id number] LAURO COLLINS Physician: MRN/PID: [id number] PCP: Micheal Gutiérrez Accession/Order#: [id number] CC Report to: Date of : 1940 Technologist: Zeenat Trejo RDCS [facility] Gender: M Technologist 2: Admission Status: Outpatient Location Performed: [facility] Diagnosis/ICD: I73.9-Peripheral vascular disease, unspecified Indication: Hyperlipidemia, CAD, CA and PTCA-06/2021, Chest Discomfort, CHF, COPD, Tobacco Abuse, Right SFA Stent Procedure/CPT: 39199 Peripheral artery PVR (multi segmental pressure)-19793 CONCLUSIONS: Right Lower PVR: There is evidence of moderate multi vessel disease. Monophasic flow is noted in the right common femoral artery, right superficial femoral artery and right popliteal artery. Biphasic flow is noted in the right posterior tibial artery and right dorsalis pedis artery. Blunted PVR waveform at the femoral artery level. Left Lower PVR: There is evidence of moderate disease at the femoral popliteal level. Monophasic flow is noted in the left common femoral artery, left superficial femoral artery, left popliteal artery, left peroneal artery, left anterior tibial artery, left posterior tibial artery and left dorsalis pedis artery. Mildly blunted PVR waveform at the poplilteal artery. Imaging AND Doppler Findings: RIGHT Lower PVR Pressures Ratios Right High Thigh 140 mmHg 1.01 Right Low Thigh 128 mmHg 0.93 Right Calf 107 mmHg 0.78 Right Posterior Tibial (Ankle) 92 mmHg 0.67 Right Dorsalis Pedis (Ankle) 90 mmHg 0.65 LEFT Lower PVR Pressures Ratios Left High Thigh 104 mmHg 0.75 Left Low Thigh 100 mmHg 0.72 Left Calf 65 mmHg 0.47 Left Posterior Tibial (Ankle) 65 mmHg 0.47 Left Dorsalis Pedis (Ankle) 73 mmHg 0.53 Right Left Brachial Pressure 138 mmHg 132 mmHg [id number] Saige Bassett MD, FACC Final Normal [facility] VAS LAB PVR W/O EXERCISE -[facility]-Sandu marika 250 DO Work Phone: GI PANEL (PCR)on 10-28-2021 Adenovirus F 40/41 Not detected Normal NOT DETECTED [facility] Comment on above: Performed By: #### G IPANEL ####[facility] [address] [place], [place] [address]Dr. Villa Yanes Astrovirus Not detected Normal NOT DETECTED [facility] Comment on above: Performed By: #### G IPANEL ####[facility] Hqxv[address]uge[address] [place], [place] [address]Dr. Villa Yanes C. Diff toxin A/B Not detected Normal NOT DETECTED [facility] Comment on above: Performed By: #### G IPANEL ####[facility] [address]vfv[address] [place], [place] [address]Dr. Villa Yanes Campylobacter Not detected Normal NOT DETECTED [facility] Comment on above: Performed By: #### G IPANEL ####[facility] [address]qh[address] [place], [place] [address]Dr. Villa Yanes Cryptosporidium Not detected Normal NOT DETECTED [facility] Comment on above: Performed By: #### G IPANEL ####[facility] I[address] [place], [place] [address]Dr. Villa Yanes Cyclos. Cayetanensis Not detected Normal NOT DETECTED [facility] Comment on above: Performed By: #### G IPANEL ####[facility] I[address]ww[address] [place], [place] [address]Dr. karen Yanes E. Coli O157 Not Applicable Normal Not Applicable [facility] Comment on above: Performed By: #### G IPANEL ####[facility] U[address]atwzvjn[address] [place], [place] [address]Dr. Brooklynkaren Yanes E. histolytica Not detected Normal NOT DETECTED [facility] Comment on above: Performed By: #### G IPANEL ####[facility] Z[address]lgqbprv[address] [place], [place] [address]Dr. [facility] EAEC Not detected Normal NOT DETECTED [facility] Comment on above: Performed By: #### G IPANEL ####[facility] K[address]ey[address]cxz[address] [place], [place] [address]Dr. [facility] EIEC Not detected Normal NOT DETECTED [facility] Comment on above: Performed By: #### G IPANEL ####[facility] Yc[address]cynuag[address] [place], [place] [address]Dr. Brooklynkaren [facility] EPEC Not detected Normal NOT DETECTED [facility] Comment on above: Performed By: #### G IPANEL ####[facility] Ypdvomszza[address] [place], [place] [address]Dr. karen Yanes ETEC Not detected Normal NOT DETECTED [facility] Comment on above: Performed By: #### G IPANEL ####[facility] P[address]ct[address] [place], [place] [address]Dr. Villa Yanes G. Lamblia Not detected Normal NOT DETECTED [facility] Comment on above: Performed By: #### G IPANEL ####[facility] Avjehtcpnv[address] [place], [place] [address]Dr. Villa Yanes GIPANEL CONTROLS PASSED Normal [facility] Comment on above: Performed By: #### G IPANEL ####[facility] Zeavarxpdc[address] [place], [place] [address]Dr. Villa Yanes GIPNL MASSIMO HEADER GI PANEL BACTERIA Normal T [facility] Comment on above: Performed By: #### G IPANEL ####[facility] [address]fbjx[address] [place], [place] [address]Dr. Villa Yanes [facility] ECOLI GI PANEL DIARRHEAGEN IC E.COLI / SHIGELLA Normal [facility] Comment on above: Performed By: #### G IPANEL ####[facility] Tykbiukysp[address] [place], [place] [address]Dr. Villa Yanes [facility] INFO SEE BELOW Normal [facility] Comment on above: Result Comment: EAEC - Enteroaggregative E. Coli EPEC- Enteropathogenic E. Coli ETEC- Enterotoxigenic E. Coli lt/st STEC- Shigella-like toxin-producing E. Coli stx1/stx2 EIEC- Shigella/Enteroinvasive E. Coli Performed By: #### G IPANEL ####[facility] Fbxuoauslo[address] [place], [place] [address]Dr. Villa Yanes GIPNLHD PARASITES GI PANEL PARASITES Normal [facility] Comment on above: Performed By: #### G IPANEL ####[facility] [address]vyiym[address] [place], [place] [address]Dr. Villa Yanes [facility] VIRUS GI PANEL VIRUSES Normal [facility] Comment on above: Performed By: #### G IPANEL ####[facility] Y[address]uf[address]neud[address] [place], [place] [address]Dr. Villa Yanes Norovirus GI/GII Not detected Normal NOT DETECTED [facility] Comment on above: Performed By: #### G IPANEL ####[facility] Kws[address]sf[address] [place], [place] [address]Dr. Villa Yanes P. Shigelloides Not detected Normal NOT DETECTED [facility] Comment on above: Performed By: #### G IPANEL ####[facility] [address]jzurp[address] [place], [place] [address]Dr. Villa Yanes Rotavirus A Not detected Normal NOT DETECTED [facility] Comment on above: Performed By: #### G IPANEL ####[facility] [address]nzq[address] [place], [place] [address]Dr. Villa Yanes Salmonella Not detected Normal NOT DETECTED [facility] Comment on above: Performed By: #### G IPANEL ####[facility] [address] [place], [place] [address]Dr. Villa Yanes Sapovirus Not detected Normal NOT DETECTED [facility] Comment on above: Performed By: #### G IPANEL ####[facility] V[address]qiumpsb[address] [place], [place] [address]Dr. Villa Yanes STEC Not detected Normal NOT DETECTED [facility] Comment on above: Performed By: #### G IPANEL ####[facility] Uue[address]ypmbi[address] [place], [place] [address]Dr. Villa Yanes Vibrio Not detected Normal NOT DETECTED [facility] Comment on above: Performed By: #### G IPANEL ####[facility] N[address] [place], [place] [address]Dr. Villa Yanes Vibrio Cholera Not detected Normal NOT DETECTED [facility] Comment on above: Performed By: #### G IPANEL ####[facility] F[address]jqcuemc[address] [place], [place] [address]Dr. Villa Yanes Y. Enterocolitica Not detected Normal NOT DETECTED [facility] Comment on above: Performed By: #### G IPANEL ####[facility] S[address]rupi[address] [place], [place] [address]Dr. Villa Joaquín BNPon 10-13-2021 Natriuretic peptide B (Bld) [Mass/Vol] 2844.0 pg/mL Critically high <=1,800.0 [facility] Comment on above: Result Comment: Test Repeated Critical Value Verified Performed By: #### C MP, BNP ####[facility] [address]mq[address] [place], [place] [address]Dr. Brooklynkaren Yanes CBC AUTO DIFFon 10-13-2021 BASO # 0.1 103/ul Normal 0.0-0.1 [facility] Comment on above: Performed By: #### C BC ####[facility] Szmpxyucwg[address] [place], [place] [address]Dr. Villa Yanes Basophils/100 WBC (Bld) 0.8 % Normal 0.2-2.0 [facility] Comment on above: Performed By: #### C BC ####[facility] U[address]knprnneq[address] [place], [place] [address]Dr. Villa Yanes EO # 0.9 103/ul Critically high 0.0-0.7 [facility] Comment on above: Performed By: #### C BC ####[facility] [address] [place] [address]Dr. Villa Yanes Eosinophils/100 WBC (Bld) 7.8 % Critically high 0.9-7.0 [facility] Comment on above: Performed By: #### C BC ####[facility] Pbmusyrb[address] [place], [place] [address]Dr. Villa Yanes Erythrocyte distribution width (RBC) [Ratio] 13.1 % Normal 11.0-15.0 [facility] Comment on above: Performed By: #### C BC ####[facility] [address]im[address] [place], [place] [address]Dr. Villa Yanes Hematocrit (Bld) [Volume fraction] 29.3 % Critically low 42.0-54.0 [facility] Comment on above: Performed By: #### C BC ####[facility] P[address]uccjbrg[address] [place], [place] [address]Dr. Villa Yanes Hemoglobin (Bld) [Mass/Vol] 9.3 g/dL Critically low 14.0-18.0 [facility] Comment on above: Performed By: #### C BC ####[facility] Cignpzgihf[address] [place], [place] [address]Dr. Villa Joaquín IG # 0.18 10e3/ul Critically high 0.00-0.03 [facility] Comment on above: Performed By: #### C BC ####[facility] [address]rg[address] [place], [place] [address]Dr. Villa Joaquín IG % 1.5 % Critically high 0.0-0.5 [facility] Comment on above: Performed By: #### C BC ####[facility] Htmypegyia[address] [place], [place] [address]Dr. Brooklynkaren Joaquín LYMPH # 1.7 103/ul Normal 1.2-3.8 [facility] Comment on above: Performed By: #### C BC ####[facility] [address]ckn[address] [place], [place] [address]Dr. Villa Yanes Lymphocytes/100 WBC (Bld) 14.7 % Critically low 20.5-60.0 [facility] Comment on above: Performed By: #### C BC ####[facility] [address] [place] [address]DrBrenden Yanes MANUAL DIFF REQ NO Normal [facility] Comment on above: Performed By: #### C BC ####[facility] [address]nsnxnz[address] [place] [place] [address]Dr. Villa Yanes MCH (RBC) [Entitic mass] 30.1 pg Normal 25.9-34.0 [facility] Comment on above: Performed By: #### C BC ####[facility] Vklhauibok[address] [place] [address]Dr. Villa Yanes MCHC (RBC) [Mass/Vol] 31.7 g/dL Normal 29.9-35.2 [facility] Comment on above: Performed By: #### C BC ####[facility] Qpmbusfzee4[address] [place], [place] [address]DrBrenden Yanes MCV (RBC) [Entitic vol] 94.8 fL Critically high 80.0-94.0 [facility] Comment on above: Performed By: #### C BC ####[facility] Pbuwdwahld88[address] [place], [place] [address]Dr. Villa Yanes MONO # 0.7 103/ul Normal 0.3-0.8 [facility] Comment on above: Performed By: #### C BC ####[facility] Jxuakoqunw32[address] [place], [place] [address]DrBrenden Yanes Monocytes/100 WBC (Bld) 6.1 % Normal 1.7-12.0 [facility] Comment on above: Performed By: #### C BC ####[facility] Mzrhdcdfxw87[address] [place], [place] [address]DrBrenden Yanes NEUT # 8.1 103/ul Critically high 1.4-6.5 [facility] Comment on above: Performed By: #### C BC ####[facility] Ylfxazuknx[address] [place], [place] [address]DrBrenden Yanes Neutrophils/100 WBC (Bld) 69.1 % Normal 43.0-75.0 [facility] Comment on above: Performed By: #### C BC ####[facility] Oblysztslw0104 [place] [address]Dr. Villa Yanes Platelet mean volume (Bld) [Entitic vol] 9.7 fL Normal 9.5-13.5 [facility] Comment on above: Performed By: #### C BC ####[facility] Uppsrqudmx2069 [place] [address]Dr. Villa Yanes PLT 408 103/ul Normal 150-450 [facility] Comment on above: Performed By: #### C BC ####[facility] Vrjoyxnmnh3514 [place] [address]Dr. Villa Yanes RBC 3.09 106/ul Critically low 4.70-6.10 [facility] Comment on above: Performed By: #### C BC ####[facility] Blyvgkfxah2199 [place] [address]Dr. Villa Yanes WBC 11.7 103/ul Critically high 4.0-11.0 [facility] Comment on above: Performed By: #### C BC ####[facility] Wehmvnagmx9[address] [place], [place] [address]Dr. Villa Yanes POINT OF CARE GLUCOSEon 09-22 Glucose [Mass/Vol] 216 mg/dL Critically high 74-106 [facility] Comment on above: Performed By: #### P OCGLUC ####[facility] Zumiucphdr6843 [place] [address]Dr. Villa Yanes Glucose [Mass/Vol] 217 mg/dL Critically high 74-106 [facility] Comment on above: Performed By: #### P OCGLUC ####[facility] Zqyfdupklp74[address] [place], [place] [address]DrBrenden Villa Yanes PROF 14(COMP METB)on 022 Albumin [Mass/Vol] 2.0 g/dL Critically low 3.4-5.0 [facility] Comment on above: Performed By: #### C MP, BNP ####[facility] Dutzqpckqc4930 [place] [phone]. Villa Yanes Albumin/Globulin [Mass ratio] 0.5 {ratio} Normal [facility] Comment on above: Performed By: #### C MP, BNP ####[facility] Ljflpzhprv3364 [place] [phone]. Villa Joaquín ALP [Catalytic activity/Vol] 122 U/L Critically high 46-116 [facility] Comment on above: Performed By: #### C MP, BNP ####[facility] Ydumdxvuwt0135 [place] [phone]. Villa Joaquín ALT [Catalytic activity/Vol] 12 U/L Critically low 16-63 [facility] Comment on above: Performed By: #### C MP, BNP ####[facility] Ofwnnleytx4077 [place] [address]Dr. Villa Yanes Anion gap [Moles/Vol] 11.6 mmol/L Normal [facility] Comment on above: Performed By: #### C MP, BNP ####[facility] Xuywpclour5122 [place] [address]Dr. Brooklynkaren Yanes AST [Catalytic activity/Vol] 7 U/L Critically low 15-37 [facility] Comment on above: Performed By: #### C MP, BNP ####[facility] Izhxmqbziq4258 [place] [address]Dr. Villa Yanes Bilirubin [Mass/Vol] 0.1 mg/dL Critically low 0.2-1.0 [facility] Comment on above: Performed By: #### C MP, BNP ####[facility] Aonirjzgdi6957 [place] [phone]. Villa Yanes Calcium [Mass/Vol] 8.3 mg/dL Critically low 8.5-10.1 [facility] Comment on above: Performed By: #### C MP, BNP ####[facility] Usueuweoeq1128 [place] [phone]. Villa Yanes Chloride [Moles/Vol] 100 mmol/L Normal 98-107 [facility] Comment on above: Performed By: #### C MP, BNP ####[facility] Udjnklyjmu6827 [place] [address]Dr. Villa Yanes CO2 [Moles/Vol] 28.5 mmol/L Normal 21.0-32.0 [facility] Comment on above: Performed By: #### C MP, BNP ####[facility] Kjwkqhwnqz0126 [place] [address]Dr. Villa Yanes Creatinine [Mass/Vol] 1.13 mg/dL Normal 0.70-1.30 [facility] Comment on above: Performed By: #### C MP, BNP ####[facility] Ojbavomlpz9[address] [place], [place] [address]Dr. Villa Yanes EGFR-AF CROATIAN >60 Normal >=60 [facility] Comment on above: Performed By: #### C MP, BNP ####[facility] Tctjmrychb2128[address] [place], [place] [address]Dr. Villa Yanes EGFR-NON AF CROATIAN >60 Normal >=60 [facility] Comment on above: Performed By: #### C MP, BNP ####[facility] Klqlepqvlu8558 [place] [address]Dr. Villa Yanes Globulin (S) [Mass/Vol] 3.7 g/dL Normal [facility] Comment on above: Performed By: #### C MP, BNP ####[facility] Tphzsfkdjp8492 [place] [address]Dr. Villa Yanes Glucose [Mass/Vol] 241 mg/dL Critically high 74-106 [facility] Comment on above: Performed By: #### C MP, BNP ####[facility] Oczmefgwti9934 [place] [address]Dr. Villa Yanes Potassium [Moles/Vol] 4.1 mmol/L Normal 3.5-5.1 [facility] Comment on above: Performed By: #### C MP, BNP ####[facility] Smzwjyrgoj77[address] [place], [place] [address]Dr. Villa Yanes Protein [Mass/Vol] 5.7 g/dL Critically low 6.4-8.2 [facility] Comment on above: Performed By: #### C MP, BNP ####[facility] Avwyzuuwxl1506[address] [place], [place] [address]Dr. Villa Yanes Sodium [Moles/Vol] 136 mmol/L Normal 136-145 [facility] Comment on above: Performed By: #### C MP, BNP ####[facility] Htzfxbgrrx6967[address] [place], [place] [address]Dr. Villa Joaquín Urea nitrogen [Mass/Vol] 29.0 mg/dL Critically high 7.0-18.0 [facility] Comment on above: Performed By: #### C MP, BNP ####[facility] Wojugacuam[address] [place], [place] [address]Dr. Brooklynkaren Yanes Urea nitrogen/Creatinine [Mass ratio] 25.7 mg/mg Normal [facility] Comment on above: Performed By: #### C MP, BNP ####[facility] Ozhcznlmer457[address] [place], [place] [address]Dr. Villa Joaquín BNPon 10-12-2021 Natriuretic peptide B (Bld) [Mass/Vol] 4274.0 pg/mL Critically high <=1,800.0 [facility] Comment on above: Result Comment: Test Repeated. Critical Value Verified Performed By: #### B CUTTING AND BONING SUPERVISOR, CMP ####[facility] Jrbjmqmlxq6205[address] [place], [place] [address]Dr. Villa Joaquín CBC AUTO DIFFon 10-12-2021 BASO # 0.1 103/ul Normal 0.0-0.1 [facility] Comment on above: Performed By: #### C BC ####[facility] Mdyceukrkc285[address] [place], [place] [address]Dr. Villa Ynaes Basophils/100 WBC (Bld) 0.6 % Normal 0.2-2.0 [facility] Comment on above: Performed By: #### C BC ####[facility] Poxisqelgk9466[address] [place], [place] [address]Dr. Villa Yanes EO # 0.6 103/ul Normal 0.0-0.7 [facility] Comment on above: Performed By: #### C BC ####[facility] Pbevvlkqox[address] [place], [place] [address]Dr. Villa Yanes Eosinophils/100 WBC (Bld) 4.2 % Normal 0.9-7.0 [facility] Comment on above: Performed By: #### C BC ####[facility] Ghhbnrvssn8594 [place] [address]Dr. Villa Yanes Erythrocyte distribution width (RBC) [Ratio] 12.9 % Normal 11.0-15.0 [facility] Comment on above: Performed By: #### C BC ####[facility] Evohqmadjl920[address] [place], [place] [address]Dr. Villa Yanes Hematocrit (Bld) [Volume fraction] 31.5 % Critically low 42.0-54.0 [facility] Comment on above: Performed By: #### C BC ####[facility] Lortfcwxfv656[address] [place], [place] [address]Dr. Villa Yanes Hemoglobin (Bld) [Mass/Vol] 9.9 g/dL Critically low 14.0-18.0 [facility] Comment on above: Performed By: #### C BC ####[facility] Zirdcikzhc[address] [place], [place] [address]Dr. Villa Yanes IG # 0.10 10e3/ul Critically high 0.00-0.03 [facility] Comment on above: Performed By: #### C BC ####[facility] Tjkzotgfxc88[address] [place], [place] [address]Dr. Villa Yanes IG % 0.7 % Critically high 0.0-0.5 [facility] Comment on above: Performed By: #### C BC ####[facility] Pnvpsxhulk[address] [place], [place] [address]Dr. Villa Yanes LYMPH # 1.9 103/ul Normal 1.2-3.8 [facility] Comment on above: Performed By: #### C BC ####[facility] Wouwxjrwie9787[address] [place], [place] [address]Dr. Villa Yanes Lymphocytes/100 WBC (Bld) 13.2 % Critically low 20.5-60.0 [facility] Comment on above: Performed By: #### C BC ####[facility] Fzemsjoiua7593 [place] [phone]. Villa Yanes MANUAL DIFF REQ NO Normal [facility] Comment on above: Performed By: #### C BC ####[facility] Lgpxglshja9634 [place] [phone]. Villa Yanes MCH (RBC) [Entitic mass] 30.1 pg Normal 25.9-34.0 [facility] Comment on above: Performed By: #### C BC ####[facility] Spvpiirtsz8671 [place] [address]Dr. Villa Yanes MCHC (RBC) [Mass/Vol] 31.4 g/dL Normal 29.9-35.2 [facility] Comment on above: Performed By: #### C BC ####[facility] Dplugnrbhf3887 [place] [address]Dr. Villa Yanes MCV (RBC) [Entitic vol] 95.7 fL Critically high 80.0-94.0 [facility] Comment on above: Performed By: #### C BC ####[facility] Otwrwxifkn96[address] [place], [place] [address]Dr. Villa Joaquín MONO # 0.8 103/ul Normal 0.3-0.8 [facility] Comment on above: Performed By: #### C BC ####[facility] Pxcqarniyz7282 [place] [address]Dr. Villa Joaquín Monocytes/100 WBC (Bld) 5.3 % Normal 1.7-12.0 [facility] Comment on above: Performed By: #### C BC ####[facility] Bkwhfnbelr1748 [place] [address]Dr. Villa Yanes NEUT # 10.9 103/ul Critically high 1.4-6.5 [facility] Comment on above: Performed By: #### C BC ####[facility] Cfdzvncslx97[address] [place], [place] [address]Dr. Brooklynkaren Yanes Neutrophils/100 WBC (Bld) 76.0 % Critically high 43.0-75.0 [facility] Comment on above: Performed By: #### C BC ####[facility] Yhutxzfljh6880 [place] [phone]. Villa Yanes Platelet mean volume (Bld) [Entitic vol] 9.6 fL Normal 9.5-13.5 [facility] Comment on above: Performed By: #### C BC ####[facility] Ylkyrqtjft7406 [place] [phone]. Villa Yanes PLT 372 103/ul Normal 150-450 [facility] Comment on above: Performed By: #### C BC ####[facility] Xwslhmrnzg2765 [place] [address]Dr. Villa Yanes RBC 3.29 106/ul Critically low 4.70-6.10 [facility] Comment on above: Performed By: #### C BC ####[facility] Ctllbtpemu3101 [place] [address]Dr. Villa Yanes WBC 14.3 103/ul Critically high 4.0-11.0 [facility] Comment on above: Performed By: #### C BC ####[facility] Bqfhfbyhdh2148 [place] [address]Dr. Villa Yanes POINT OF CARE GLUCOSEon 09-22 Glucose [Mass/Vol] 196 mg/dL Critically high 74-106 [facility] Comment on above: Performed By: #### P OCGLUC ####[facility] Qkftcwbkbc6038 [place] [address]Dr. Villa Yanes Glucose [Mass/Vol] 222 mg/dL Critically high 74-106 [facility] Comment on above: Performed By: #### P OCGLUC ####[facility] Qiniorthic6166 [place] [address]Dr. Villa Yanes Glucose [Mass/Vol] 215 mg/dL Critically high 74-106 [facility] Comment on above: Performed By: #### P OCGLUC ####[facility] Dvjguqqntr1968 [place] [address]Dr. Villa Yanes Glucose [Mass/Vol] 224 mg/dL Critically high -106 [facility] Comment on above: Performed By: #### P OCGLUC ####[facility] Domnxszywb6791 [place] [address]Dr. Villa Yanes PROF 14(COMP METB)on 022 Albumin [Mass/Vol] 2.1 g/dL Critically low 3.4-5.0 [facility] Comment on above: Performed By: #### B CUTTING AND BONING SUPERVISOR, CMP ####[facility] Aplrxtpjjr6849 [place] [address]Dr. Villa Yanes Albumin/Globulin [Mass ratio] 0.5 {ratio} Normal [facility] Comment on above: Performed By: #### B CUTTING AND BONING SUPERVISOR, CMP ####[facility] Fpwfsfrzsw9063 [place] [address]Dr. Villa Yanes ALP [Catalytic activity/Vol] 127 U/L Critically high 46-116 [facility] Comment on above: Performed By: #### B CUTTING AND BONING SUPERVISOR, CMP ####[facility] Qwwvbalzoy8656[address] [place], [place] [address]Dr. Villa Yanes ALT [Catalytic activity/Vol] 12 U/L Critically low 16-63 [facility] Comment on above: Performed By: #### B CUTTING AND BONING SUPERVISOR, CMP ####[facility] Xvigdunxpk7623 [place] [address]Dr. Villa Yanes Anion gap [Moles/Vol] 11.4 mmol/L Normal [facility] Comment on above: Performed By: #### B CUTTING AND BONING SUPERVISOR, CMP ####[facility] Etmbsakeeo3268[address] [place], [place] [address]Dr. Villa Yanes AST [Catalytic activity/Vol] 13 U/L Critically low 15-37 [facility] Comment on above: Performed By: #### B CUTTING AND BONING SUPERVISOR, CMP ####[facility] Mxdhddgxlt8757[address] [place], [place] [address]Dr. Villa Yanes Bilirubin [Mass/Vol] 0.1 mg/dL Critically low 0.2-1.0 [facility] Comment on above: Performed By: #### B CUTTING AND BONING SUPERVISOR, CMP ####[facility] Kydymwrgvq5397[address] [place], [place] [address]Dr. Villa Yanes Calcium [Mass/Vol] 8.8 mg/dL Normal 8.5-10.1 [facility] Comment on above: Performed By: #### B CUTTING AND BONING SUPERVISOR, CMP ####[facility] Fpiwbglzne5383 [place] [address]Dr. Villa Yanes Chloride [Moles/Vol] 103 mmol/L Normal 98-107 [facility] Comment on above: Performed By: #### B CUTTING AND BONING SUPERVISOR, CMP ####[facility] Disowzrgqb1772 [place] [address]Dr. Villa Yanes CO2 [Moles/Vol] 28.4 mmol/L Normal 21.0-32.0 [facility] Comment on above: Performed By: #### B CUTTING AND BONING SUPERVISOR, CMP ####[facility] Gyuatujlnb6512[address] [place], [place] [address]Dr. Villa Yanes Creatinine [Mass/Vol] 1.13 mg/dL Normal 0.70-1.30 [facility] Comment on above: Performed By: #### B CUTTING AND BONING SUPERVISOR, CMP ####[facility] Wrkdmarvby9758[address] [place], [place] [address]Dr. Villa Yanes EGFR-AF CROATIAN >60 Normal >=60 [facility] Comment on above: Performed By: #### B CUTTING AND BONING SUPERVISOR, CMP ####[facility] Adcetkccpo0918[address] [place], [place] [address]Dr. Villa Yanes EGFR-NON AF CROATIAN >60 Normal >=60 [facility] Comment on above: Performed By: #### B CUTTING AND BONING SUPERVISOR, CMP ####[facility] Ythukflzix8[address] [place], [place] [address]Dr. Villa Yanes Globulin (S) [Mass/Vol] 3.9 g/dL Normal [facility] Comment on above: Performed By: #### B CUTTING AND BONING SUPERVISOR, CMP ####[facility] Tfhfucvccs2753 [place] [address]Dr. Villa Yanes Glucose [Mass/Vol] 151 mg/dL Critically high 74-106 [facility] Comment on above: Performed By: #### B CUTTING AND BONING SUPERVISOR, CMP ####[facility] Fovnexjdlu5401[address] [place], [place] [address]Dr. Villa Yanes Potassium [Moles/Vol] 3.8 mmol/L Normal 3.5-5.1 [facility] Comment on above: Performed By: #### B CUTTING AND BONING SUPERVISOR, CMP ####[facility] Wgyijsfdga0989 [place] [address]Dr. Brooklynkaren Yanes Protein [Mass/Vol] 6.0 g/dL Critically low 6.4-8.2 Th e [facility] Comment on above: Performed By: #### B CUTTING AND BONING SUPERVISOR, CMP ####[facility] Isltwetglm0435[address] [place], [place] [address]Dr. Villa Yanes Sodium [Moles/Vol] 139 mmol/L Normal 136-145 [facility] Comment on above: Performed By: #### B CUTTING AND BONING SUPERVISOR, CMP ####[facility] Ghvuvrkumt4558[address] [place], [place] [address]Dr. Villa Yanes Urea nitrogen [Mass/Vol] 28.0 mg/dL Critically high 7.0-18.0 [facility] Comment on above: Performed By: #### B CUTTING AND BONING SUPERVISOR, CMP ####[facility] Qmnjhwohdm7836[address] [place], [place] [address]Dr. Villa Yanes Urea nitrogen/Creatinine [Mass ratio] 24.8 mg/mg Normal [facility] Comment on above: Performed By: #### B CUTTING AND BONING SUPERVISOR, CMP ####[facility] Eirqzcfywa1067[address] [place], [place] [address]Dr. Brooklynkaren Joaquín BNPon 10-11-2021 Natriuretic peptide B (Bld) [Mass/Vol] 1770.0 pg/mL Normal <=1,800.0 [facility] Comment on above: Performed By: #### C MP, BNP ####[facility] Yvzewyfpqw6[address] [place], [place] [address]Dr. Villa Yanes CBC W MANUAL DIFFon 10-12-19 22 ATYPICAL LYMPH # Normal [facility] Comment on above: Performed By: #### C BCMAN ####[facility] Bwfopglyxt4212[address] [place], [place] [address]Dr. Villa Yanes ATYPICAL LYMPH % Normal [facility] Comment on above: Performed By: #### C BCMAN ####[facility] Iourxswvxc6329[address] [place], [place] [address]Dr. Villa Yanes BAND # 0.3 103/ul Normal 0.0-0.3 [facility] Comment on above: Performed By: #### C BCMAN ####[facility] Bygdlkwesz2940 [place] [address]Dr. Villa Yanes BAND % 2 % Normal 0-5 [facility] Comment on above: Performed By: #### C BCMAN ####[facility] Ohmrweabem2219 [place] [id number]. Yikaren Yanes BASOM # 0.00 103/ul Normal 0.00-0.10 [facility] Comment on above: Performed By: #### C BCMAN ####[facility] Guqpufxzxi3740 [place] [address]Dr. Villa Yanes BASOM % 0.0 % Critically low 0.2-2.0 [facility] Comment on above: Performed By: #### C BCMARLENA ####[facility] Wdeqscixdf00[address] [place], [place] [address]Dr. Villa Yanes BLAST # Normal [facility] Comment on above: Performed By: #### C BCMARLENA ####[facility] Ciipxviwnu14[address] [place], [place] [address]Dr. Villa Yanes BLAST % Normal [facility] Comment on above: Performed By: #### C BCMARLENA ####[facility] Mbbgrcabmw33[address] [place], [place] [address]Dr. Villa Yanes CORRECTED WBC Normal 4.0-11.0 [facility] Comment on above: Performed By: #### C BCMARLENA ####[facility] Zapxuftios9[address] [place], [place] [address]Dr. Yikaren Yanes EOS # 0.00 103/ul Normal 0.00-0.70 [facility] Comment on above: Performed By: #### C BCMARLENA ####[facility] Kalhtjllte[address] [place], [place] [address]Dr. Villa Yanes EOS% 0.0 % Critically low 0.9-7.0 [facility] Comment on above: Performed By: #### C BCMAN ####[facility] Ijavokcjzn4145[address] [place], [place] [address]Dr. Villa Yanes HCT 28.9 % Critically low 42.0-54.0 [facility] Comment on above: Performed By: #### C ESTEFANIA ####[facility] Dnikpbwgyr3420 [place] [id number]. Villa Yanes HGB 9.0 g/dl Critically low 14.0-18.0 [facility] Comment on above: Performed By: #### C ESTEFANIA ####[facility] Glungqcmdb5927 [place] [phone]. Villa Yanes LYMPHM # 0.77 103/ul Critically low 1.20-3.80 [facility] Comment on above: Performed By: #### C ESTEFANIA ####[facility] Qorwyxfjde3350 [place] [id number]. Villa Yanes LYMPHM% 5.0 % Critically low 20.5-60.0 [facility] Comment on above: Performed By: #### C ESTEFANIA ####[facility] Cjcmooekyi0383 [place] [id number]. Villa Yanes MCH 29.7 pg Normal 25.9-34.0 [facility] Comment on above: Performed By: #### C ESTEFANIA ####[facility] Fuukeykcje8164 [place] [phone]. Villa Yanes MCHC 31.1 g/dl Normal 29.9-35.2 [facility] Comment on above: Performed By: #### C ESTEFANIA ####[facility] Nfdrnfpbza4524 [place] [phone]. Villa Yanes MCV 95.4 fL Critically high 80.0-94.0 [facility] Comment on above: Performed By: #### C BCMARLENA ####[facility] Uapgldrywa6048 [place], [place] [address]Yp. Villa Yanes METAMYELOCYTE # Normal [facility] Comment on above: Performed By: #### C BCMARLENA ####[facility] Rpgnvlgeew0914 [place], [place] [address]Jd. Villa Yanes METAMYELOCYTE % Normal [facility] Comment on above: Performed By: #### C BCMARLENA ####[facility] Vxxjyxdebk8323 [place] [phone]. Villa Yanes MONOM# 0.46 103/ul Normal 0.30-0.80 [facility] Comment on above: Performed By: #### C ESTEFANIA ####[facility] Hzamesypfm9764 [place] [phone]. Villa Yanes MONOM% 3.0 % Normal 1.7-12.0 [facility] Comment on above: Performed By: #### C ESTEFANIA ####[facility] Fdyvoqxobr3440 [place] [phone]. Villa Yanes MPV 10.1 fL Normal 9.5-13.5 [facility] Comment on above: Performed By: #### Awilda MAC ####[facility] Pwvqmronpq[address] [place], [place] [address]Dr. Villa Yanes MYELOCYTE # Normal [facility] Comment on above: Performed By: #### Awilda MAC ####[facility] Ewnkxijkko[address] [place], [place] [id number]. Villa Yanes MYELOCYTE % Normal [facility] Comment on above: Performed By: #### Awilda MAC ####[facility] Ijhnbyqgml84[address] [place], [place] [address]Dr. Villa Yanes NRBC Normal [facility] Comment on above: Performed By: #### Awilda MAC ####[facility] Hkpuobbxaa3043 [place] [id number]. Villa Yanes PLT 361 103/ul Normal 150-450 [facility] Comment on above: Performed By: #### C ESTEFANIA ####[facility] Mjwdsmtjhd0659 [place] [phone]. Villa Yanes RBC 3.03 106/ul Critically low 4.70-6.10 [facility] Comment on above: Performed By: #### C ESTEFANIA ####[facility] Jnsmcdqixx9100 [place] [phone]. Villa Yanes RDW 12.9 % Normal 11.0-15.0 [facility] Comment on above: Performed By: #### Awilda MAC ####[facility] Thwsidnxpd1643 [place] [phone]. Villa Yanes SEG # 13.86 103/ul Critically high 1.40-6.50 [facility] Comment on above: Performed By: #### C BCMAN ####[facility] Pnvwjzxyfm0132 [place] [phone]. Villa Yanes SEG % 90.0 % Critically high 43.0-75.0 [facility] Comment on above: Performed By: #### C BCMAN ####[facility] Pgcmdmbuhz7776 [place] [phone]. Villa Yanes WBC 15.4 103/ul Critically high 4.0-11.0 [facility] Comment on above: Performed By: #### C BCMAN ####[facility] Weknyqaktx[address] [place] [address]Dr. Villa Yanes POINT OF CARE GLUCOSEon 09-22 Glucose [Mass/Vol] 214 mg/dL Critically high 74-106 [facility] Comment on above: Performed By: #### P OCGLUC ####[facility] Knsiucilzg68[address] [place] [address]Dr. Villa Joaquín Glucose [Mass/Vol] 185 mg/dL Critically high 74-106 [facility] Comment on above: Performed By: #### P OCGLUC ####[facility] Kjsvnttwsv8426 [place] [address]Dr. Villa Yanes Glucose [Mass/Vol] 224 mg/dL Critically high 74-106 [facility] Comment on above: Performed By: #### P OCGLUC ####[facility] Wxtdbjmrib9150 [place] [address]Dr. Villa Yanes Glucose [Mass/Vol] 273 mg/dL Critically high 74-106 [facility] Comment on above: Performed By: #### P OCGLUC ####[facility] Cdfeyckgqi[address] [place], [place] [address]Dr. Villa Yanes PROF 14(COMP METB)on 022 Albumin [Mass/Vol] 1.9 g/dL Critically low 3.4-5.0 [facility] Comment on above: Performed By: #### C MP, BNP ####[facility] Kvsyatfssx3085 [place] [phone]. Vilal Yanes Albumin/Globulin [Mass ratio] 0.5 {ratio} Normal [facility] Comment on above: Performed By: #### C MP, BNP ####[facility] Cezojedmtp[address] [place] [address]Dr. Villa Yanes ALP [Catalytic activity/Vol] 153 U/L Critically high 46-116 [facility] Comment on above: Performed By: #### C MP, BNP ####[facility] Glkfjvqbqf3106 [place] [address]Dr. Villa Yanes ALT [Catalytic activity/Vol] 9 U/L Critically low 16-63 [facility] Comment on above: Performed By: #### C MP, BNP ####[facility] Sxdolovljk75[address] [place] [address]Dr. Villa Yanes Anion gap [Moles/Vol] 12.0 mmol/L Normal [facility] Comment on above: Performed By: #### C MP, BNP ####[facility] Ykrmblbiqf4149 [place] [address]Dr. Villa Yanes AST [Catalytic activity/Vol] 10 U/L Critically low 15-37 [facility] Comment on above: Performed By: #### C MP, BNP ####[facility] Zvcirvupzv3356 [place] [address]Dr. Villa Yanes Bilirubin [Mass/Vol] 0.1 mg/dL Critically low 0.2-1.0 [facility] Comment on above: Performed By: #### C MP, BNP ####[facility] Pkiswtweww9129 [place] [phone]. Villa Yanes Calcium [Mass/Vol] 8.4 mg/dL Critically low 8.5-10.1 [facility] Comment on above: Performed By: #### C MP, BNP ####[facility] Ldxuiwsxxy5098 [place] [address]Dr. Villa Yanes Chloride [Moles/Vol] 100 mmol/L Normal 98-107 [facility] Comment on above: Performed By: #### C MP, BNP ####[facility] Fqyffibbmw8638 [place] [address]Dr. Villa Joaquín CO2 [Moles/Vol] 27.3 mmol/L Normal 21.0-32.0 [facility] Comment on above: Performed By: #### C MP, BNP ####[facility] Sguhmbejvl7624 [place] [address]Dr. Villa Yanes Creatinine [Mass/Vol] 1.40 mg/dL Critically high 0.70-1.30 [facility] Comment on above: Performed By: #### C MP, BNP ####[facility] Edcdkgqxmk20[address] [place], [place] [address]Dr. Villa Yanes EGFR-AF CROATIAN 59 mL/min/1.73m2 Critically low >=60 [facility] Comment on above: Performed By: #### C MP, BNP ####[facility] Ityfzjbbrn4[address] [place], [place] [address]Dr. Villa Yanes EGFR-NON AF CROATIAN 49 mL/min/1.73m2 Critically low >=60 [facility] Comment on above: Performed By: #### C MP, BNP ####[facility] Oecjhpiszy88[address] [place], [place] [address]Dr. Villa Yanes Globulin (S) [Mass/Vol] 4.0 g/dL Normal [facility] Comment on above: Performed By: #### C MP, BNP ####[facility] Dtqurysuna3022[address] [place], [place] [address]Dr. Villa Yanes Glucose [Mass/Vol] 353 mg/dL Critically high 74-106 T [facility] Comment on above: Performed By: #### C MP, BNP ####[facility] Mhkxgcalmj8[address] [place], [place] [address]Dr. Villa Yanes Potassium [Moles/Vol] 4.3 mmol/L Normal 3.5-5.1 [facility] Comment on above: Performed By: #### C MP, BNP ####[facility] Ziiijbwcut6861[address] [place], [place] [address]Dr. Villa Yanes Protein [Mass/Vol] 5.9 g/dL Critically low 6.4-8.2 Th [facility] Comment on above: Performed By: #### C MP, BNP ####[facility] Faehniybxb6[address] [place], [place] [address]Dr. Villa Yanes Sodium [Moles/Vol] 135 mmol/L Critically low 136-145 Th [facility] Comment on above: Performed By: #### C MP, BNP ####[facility] Ghbvoucnrl064[address] [place], [place] [address]Dr. Villa Yanes Urea nitrogen [Mass/Vol] 39.0 mg/dL Critically high 7.0-18.0 [facility] Comment on above: Performed By: #### C MP, BNP ####[facility] Itcsqvhecd3059[address] [place], [place] [address]Dr. Villa Yanes Urea nitrogen/Creatinine [Mass ratio] 27.9 mg/mg Normal [facility] Comment on above: Performed By: #### C MP, BNP ####[facility] Aglmnuubjf79[address] [place], [place] [address]Dr. Villa Yanes XR CHEST 2 Von 10-11-2021 XR CHEST 2 V Normal [facility] AMMONIAon 10-10-2021 Ammonia (P) [Moles/Vol] 20 umol/L Normal 11-32 [facility] Comment on above: Performed By: #### A MM ####[facility] Rnfjifcmuv024[address] [place], [place] [address]Dr. Villa Yanes BNPon 10-10-2021 Natriuretic peptide B (Bld) [Mass/Vol] 1137.0 pg/mL Normal <=1,800.0 [facility] Comment on above: Performed By: #### C MADM, BNP ####[facility] Vewhfanyab65[address] [place], [place] [address]Dr. Brooklynkaren Joaquín Natriuretic peptide B (Bld) [Mass/Vol] 1263.0 pg/mL Normal <=1,800.0 [facility] Comment on above: Performed By: #### C MP, BNP ####[facility] Ybpunrwplb165[address] [place], [place] [address]Dr. Villa Yanes CARDIAC ANAMARIA ADMITon 022 CK [Catalytic activity/Vol] 13 U/L Critically low 39-308 [facility] Comment on above: Performed By: #### C MADM, BNP ####[facility] Qbgkbgjtjm0855 [place] [address]Dr. Villa Yanes CK.MB [Mass/Vol] ng/mL Normal <=3.60 [facility] Comment on above: Performed By: #### C MADM, BNP ####[facility] Cmrjxarziq0622 [place] [address]Dr. Villa Yanes HSTROP 9.1 pg/mL Normal 4.0-76.1 [facility] Comment on above: Result Comment: CUT- OFF POINTS HAVE BEEN ESTABLISHED BASED ON THE FOURTH UNIVERSAL DEFINITIONS OF MYOCARDIALINFARCTION. THE UPPER REFERENCE LIMIT (URL) OF TROPONIN, DEFINED THE 99TH PERCENTILE OFcTnI DISTRIBUTION IN A REFERENCE POPULATION, HAS BEEN CONFIRMED THE DECISION THRESHOLDFOR CA DIAGNOSIS. Performed By: #### C MADM, BNP ####[facility] Enuigberty40[address] [place] [address]Dr. Villa Joaquín JULIA 52 ng/mL Normal 16-96 [facility] Comment on above: Performed By: #### C MADM, BNP ####[facility] Wdalejgpfs6785 [place] [address]Dr. Villa Joaquín CBC AUTO DIFFon 10-10-2021 BASO # 0.1 103/ul Normal 0.0-0.1 [facility] Comment on above: Performed By: #### C BC ####[facility] Nrwmpevhup3313 [place] [address]Dr. Villa Joaquín Basophils/100 WBC (Bld) 0.3 % Normal 0.2-2.0 [facility] Comment on above: Performed By: #### C BC ####[facility] Lksotzzgth7200 [place] [address]Dr. Villa Yanes EO # 0.2 103/ul Normal 0.0-0.7 [facility] Comment on above: Performed By: #### C BC ####[facility] Kffqkjkmln1819 [place] [address]Dr. Villa Yanes Eosinophils/100 WBC (Bld) 1.1 % Normal 0.9-7.0 [facility] Comment on above: Performed By: #### C BC ####[facility] Uyfzqsfslw97[address] [place], [place] [address]Dr. Vilal Yanes Erythrocyte distribution width (RBC) [Ratio] 13.2 % Normal 11.0-15.0 [facility] Comment on above: Performed By: #### C BC ####[facility] Vclmtewjrn[address] [place], [place] [address]Dr. Villa Yanes Hematocrit (Bld) [Volume fraction] 29.2 % Critically low 42.0-54.0 [facility] Comment on above: Performed By: #### C BC ####[facility] Qdxeyblbrn88[address] [place], [place] [address]Dr. Villa Yanes Hemoglobin (Bld) [Mass/Vol] 9.3 g/dL Critically low 14.0-18.0 [facility] Comment on above: Performed By: #### C BC ####[facility] Ihhnbkdkcd12[address] [place], [place] [address]Dr. Villa Yanes IG # 0.11 10e3/ul Critically high 0.00-0.03 [facility] Comment on above: Performed By: #### C BC ####[facility] Iafughurfn[address] [place], [place] [address]Dr. Villa Yanes IG % 0.7 % Critically high 0.0-0.5 [facility] Comment on above: Performed By: #### C BC ####[facility] Xmvaeuwomr65[address] [place], [place] [address]Dr. Villa Yanes LYMPH # 1.0 103/ul Critically low 1.2-3.8 [facility] Comment on above: Performed By: #### C BC ####[facility] Fpwuibcaub9[address] [place], [place] [address]Dr. Villa Yanes Lymphocytes/100 WBC (Bld) 6.4 % Critically low 20.5-60.0 [facility] Comment on above: Performed By: #### C BC ####[facility] Suykplvssp9197 [place] [id number]. Villa Yanes MANUAL DIFF REQ NO Normal [facility] Comment on above: Performed By: #### C BC ####[facility] Lkglefcfaq0666 [place] [phone]. Villa Yanes MCH (RBC) [Entitic mass] 30.2 pg Normal 25.9-34.0 [facility] Comment on above: Performed By: #### C BC ####[facility] Bsstwojxmu3803 [place] [phone]. Villa Yanes MCHC (RBC) [Mass/Vol] 31.8 g/dL Normal 29.9-35.2 [facility] Comment on above: Performed By: #### C BC ####[facility] Omrkrlwzqb6703 [place] [address]Dr. Villa Yanes MCV (RBC) [Entitic vol] 94.8 fL Critically high 80.0-94.0 [facility] Comment on above: Performed By: #### C BC ####[facility] Qgmlktomry[address] [place], [place] [address]Dr. Villa Joaquín MONO # 0.9 103/ul Critically high 0.3-0.8 [facility] Comment on above: Performed By: #### C BC ####[facility] Eztynkxqwl0625[address] [place], [place] [address]Dr. Brooklynkaren Yanes Monocytes/100 WBC (Bld) 5.4 % Normal 1.7-12.0 [facility] Comment on above: Performed By: #### C BC ####[facility] Fwbjdzkhui4621 [place] [phone]. Villa Yanes NEUT # 13.7 103/ul Critically high 1.4-6.5 [facility] Comment on above: Performed By: #### C BC ####[facility] Yhowpczigl17[address] [place], [place] [address]Dr. Brooklynkaren Yanes Neutrophils/100 WBC (Bld) 86.1 % Critically high 43.0-75.0 [facility] Comment on above: Performed By: #### C BC ####[facility] Zkwowlapfq9732 [place] [phone]. Villa Yanes Platelet mean volume (Bld) [Entitic vol] 10.5 fL Normal 9.5-13.5 [facility] Comment on above: Performed By: #### C BC ####[facility] Dyvzffszom3046 [place] [phone]. Villa Yanes PLT 293 103/ul Normal 150-450 [facility] Comment on above: Performed By: #### C BC ####[facility] Enwtpmaaie7994 [place] [phone]. Villa Yanes RBC 3.08 106/ul Critically low 4.70-6.10 [facility] Comment on above: Performed By: #### C BC ####[facility] Ugmgunptxe7419 [place] [phone]. Villa Yanes WBC 15.9 103/ul Critically high 4.0-11.0 [facility] Comment on above: Performed By: #### C BC ####[facility] Joomkoabiz2215 [place] [phone]. Villa Yanes CULTURE URINEon 10-10-2021 CULTURE URINE Culture Observations : No growth Normal [facility] Comment on above: Performed By: #### U RCX ####[facility] Pxfbtbcnms9016 [place] [phone]. Villa Yanes POINT OF CARE GLUCOSEon 09-22 Glucose [Mass/Vol] 214 mg/dL Critically high 74-106 [facility] Comment on above: Performed By: #### P OCGLUC ####[facility] Mynowffwlo1609 [place] [phone]. Villa Yanes Glucose [Mass/Vol] 309 mg/dL Critically high 74-106 [facility] Comment on above: Performed By: #### P OCGLUC ####[facility] Qrcnggcjbb1097 [place] [phone]. Villa Yanes Glucose [Mass/Vol] 196 mg/dL Critically high 74-106 [facility] Comment on above: Performed By: #### P OCGLUC ####[facility] Ncheudblyv3317 [place] [address]Dr. Villa Yanes Glucose [Mass/Vol] 185 mg/dL Critically high 74-106 [facility] Comment on above: Performed By: #### P OCGLUC ####[facility] Wutppxujgo1825 [place] [address]Dr. Villa Yanes PROF 14(COMP METB)on 022 Albumin [Mass/Vol] 1.7 g/dL Critically low 3.4-5.0 [facility] Comment on above: Performed By: #### C MP, BNP ####[facility] Hcjfrbwksl7507 [place] [address]Dr. Villa Yanes Albumin/Globulin [Mass ratio] 0.4 {ratio} Normal [facility] Comment on above: Performed By: #### C MP, BNP ####[facility] Ksvdekabfh4152 [place] [address]Dr. Villa Yanes ALP [Catalytic activity/Vol] 127 U/L Critically high 46-116 [facility] Comment on above: Performed By: #### C MP, BNP ####[facility] Ngsesxmrle4364 [place] [address]Dr. Villa Yanes ALT [Catalytic activity/Vol] 6 U/L Critically low 16-63 [facility] Comment on above: Performed By: #### C MP, BNP ####[facility] Lpjtqcmtrs2014 [place] [address]Dr. Villa Yanes Anion gap [Moles/Vol] 11.6 mmol/L Normal [facility] Comment on above: Performed By: #### C MP, BNP ####[facility] Eifyvqntuz0173 [place] [address]Dr. Villa Yanes AST [Catalytic activity/Vol] 15 U/L Normal 15-37 [facility] Comment on above: Performed By: #### C MP, BNP ####[facility] Alrhkapfeg5403 [place] [address]Dr. Villa Yanes Bilirubin [Mass/Vol] 0.2 mg/dL Normal 0.2-1.0 [facility] Comment on above: Performed By: #### C MP, BNP ####[facility] Orycqrztni2397 [place] [address]Dr. Villa Yanes Calcium [Mass/Vol] 8.4 mg/dL Critically low 8.5-10.1 Th e [facility] Comment on above: Performed By: #### C MP, BNP ####[facility] Cvvgthevnb[address] [place], [place] [address]Dr. Villa Yanes Chloride [Moles/Vol] 101 mmol/L Normal 98-107 [facility] Comment on above: Performed By: #### C MP, BNP ####[facility] Qnfkxiqjpm8[address] [place], [place] [address]Dr. Villa Yanes CO2 [Moles/Vol] 26.3 mmol/L Normal 21.0-32.0 [facility] Comment on above: Performed By: #### C MP, BNP ####[facility] Bhjslqrpzr864[address] [place], [place] [address]Dr. Villa Yanes Creatinine [Mass/Vol] 1.57 mg/dL Critically high 0.70-1.30 [facility] Comment on above: Performed By: #### C MP, BNP ####[facility] Pslxvoxkyh6[address] [place], [place] [address]Dr. Villa Yanes EGFR-AF CROATIAN 52 mL/min/1.73m2 Critically low >=60 [facility] Comment on above: Performed By: #### C MP, BNP ####[facility] Whglrqugov3311[address] [place], [place] [address]Dr. Villa Yanes EGFR-NON AF CROATIAN 43 mL/min/1.73m2 Critically low >=60 [facility] Comment on above: Performed By: #### C MP, BNP ####[facility] Gexacixrox00[address] [place], [place] [address]Dr. Villa Yanes Globulin (S) [Mass/Vol] 4.1 g/dL Normal [facility] Comment on above: Performed By: #### C MP, BNP ####[facility] Ophusakddj958[address] [place], [place] [address]Dr. Villa Joaquín Glucose [Mass/Vol] 243 mg/dL Critically high 74-106 T [facility] Comment on above: Performed By: #### C MP, BNP ####[facility] Ykcyzhndyy9736[address] [place], [place] [address]Dr. Villa Yanes Potassium [Moles/Vol] 3.9 mmol/L Normal 3.5-5.1 [facility] Comment on above: Performed By: #### C MP, BNP ####[facility] Kjkviilvgm563[address] [place], [place] [address]Dr. Villa Yanes Protein [Mass/Vol] 5.8 g/dL Critically low 6.4-8.2 Th [facility] Comment on above: Performed By: #### C MP, BNP ####[facility] Jghsbpigeu9056[address] [place], [place] [address]Dr. Villa Yanes Sodium [Moles/Vol] 135 mmol/L Critically low 136-145 Th [facility] Comment on above: Performed By: #### C MP, BNP ####[facility] Gnirgqgiol2738[address] [place], [place] [address]Dr. iVlla Yanes Urea nitrogen [Mass/Vol] 35.0 mg/dL Critically high 7.0-18.0 [facility] Comment on above: Performed By: #### C MP, BNP ####[facility] Oouoyhudpj04[address] [place], [place] [address]Dr. Villa Yanes Urea nitrogen/Creatinine [Mass ratio] 22.3 mg/mg Normal [facility] Comment on above: Performed By: #### C MP, BNP ####[facility] Quzxrhobjq8[address] [place], [place] [address]Dr. Villa Yanes UA RANDOM W/MICROSCOPICon BACTERIA NONE SEEN Normal NONE SEEN [facility] Comment on above: Performed By: #### U AMIC ####[facility] Xvfsvojgua24[address] [place], [place] [address]Dr. Villa Yanes Bilirubin Ql (U) Negative Normal NEGATIVE [facility] Comment on above: Performed By: #### U AMIC ####[facility] Erdbjcrunx7411[address] [place], [place] [address]Dr. Villa Yanes CAST NONE SEEN Normal NONE SEEN The [facility] Comment on above: Performed By: #### U AMIC ####[facility] Xbmofmdxkj568[address] [place], [place] [address]Dr. Villa Yanes Clarity (U) CLEAR Normal CLEAR [facility] Comment on above: Performed By: #### U AMIC ####[facility] Lmlzmimyvl8519[address] [place], [place] [address]Dr. Villa Yanes Color (U) YELLOW Normal YELLOW [facility] Comment on above: Performed By: #### U AMIC ####[facility] Pfmukpradf3318[address] [place], [place] [address]Dr. Villa Yanes Crystals LM Nom (Urine sed) NONE SEEN Normal NONE SEEN The [facility] Comment on above: Performed By: #### U AMIC ####[facility] Uwktcnqvaa7938[address] [place], [place] [address]Dr. Villa Yanes Epithelial cells LM Ql (Urine sed) RARE Normal NONE SEEN /RARE The [facility] Comment on above: Performed By: #### U AMIC ####[facility] Jscldmlhwi[address] [place], [place] [address]Dr. Villa Yanes Glucose Ql (U) Negative Normal NEGATIVE [facility] Comment on above: Performed By: #### U AMIC ####[facility] Mzhgoigtwz4539[address] [place], [place] [address]Dr. Villa Yanes Hemoglobin Ql (U) Negative Normal NEGATIVE The [facility] Comment on above: Performed By: #### U AMIC ####[facility] Hkzfcrqwkz04[address] [place], [place] [address]Dr. Villa Yanes Ketones Ql (U) Negative Normal NEGATIVE [facility] Comment on above: Performed By: #### U AMIC ####[facility] Elmowvsuva88[address] [place], [place] [address]Dr. Brooklynlan Yanes LEUKOCYTES Negative Normal NEGATIVE The [facility] Comment on above: Performed By: #### U AMIC ####[facility] Uaacqikymn07[address] [place], [place] [address]Dr. Yilan Yanes MUCOUS NONE SEEN Normal NONE SEEN The [facility] Comment on above: Performed By: #### U AMIC ####[facility] Jrklggppyw0831 [place] [address]Dr. Villa Yanes Nitrite Ql (U) Negative Normal NEGATIVE [facility] Comment on above: Performed By: #### U AMIC ####[facility] Ojdmlbhrob9826 [place] [address]Dr. Villa Yanes pH (U) 5.5 [pH] Normal 5-9 [facility] Comment on above: Performed By: #### U AMIC ####[facility] Cfpkxafmzz[address] [place], [place] [address]Dr. Villa Yanes RBC 2-5 Abnormal 0-2 [facility] Comment on above: Performed By: #### U AMIC ####[facility] Tlesiscppu24[address] [place], [place] [address]Dr. Villa Yanes SPEC GRAVITY 1.025 Normal 1.005-<=1.0 25 [facility] Comment on above: Performed By: #### U AMIC ####[facility] Zdfchtbvlg25[address] [place], [place] [address]Dr. Villa Yanes UA PROTEIN 100 mg/dl Abnormal NEGATIVE/ TRACE [facility] Comment on above: Performed By: #### U AMIC ####[facility] Xcvikglhpy5[address] [place], [place] [address]Dr. Villa Joaquín Urobilinogen Qn (U) 0.2 {Mackenzie'U}/dL Normal 0.2 - 1. 0 [facility] Comment on above: Performed By: #### U AMIC ####[facility] Ujmtmnbray48[address] [place], [place] [address]Dr. Villa Yanes WBC NONE SEEN Normal NONE SEEN [facility] Comment on above: Performed By: #### U AMIC ####[facility] Wzwjqjjpdp3535[address] [place], [place] [address]Dr. Brooklynkaren Yanes BNPon 10-09-2021 Natriuretic peptide B (Bld) [Mass/Vol] 1670.0 pg/mL Normal <=1,800.0 [facility] Comment on above: Performed By: #### B CUTTING AND BONING SUPERVISOR, CMP ####[facility] Mecifxpnyq9038 [place] [address]Dr. Villa Yanes CBC AUTO DIFFon 10-09-2021 BASO # 0.1 103/ul Normal 0.0-0.1 [facility] Comment on above: Performed By: #### C BC ####[facility] Ortvnwwovp1376[address] [place], [place] [address]Dr. Villa Yanes Basophils/100 WBC (Bld) 0.3 % Normal 0.2-2.0 [facility] Comment on above: Performed By: #### C BC ####[facility] Wcbsqxtllp15[address] [place], [place] [address]Dr. Villa Yanes EO # 0.2 103/ul Normal 0.0-0.7 [facility] Comment on above: Performed By: #### C BC ####[facility] Sstonyfluu55[address] [place], [place] [address]Dr. Brooklynkaren Yanes Eosinophils/100 WBC (Bld) 1.1 % Normal 0.9-7.0 [facility] Comment on above: Performed By: #### C BC ####[facility] Ybkcwracno60[address] [place], [place] [address]Dr. Villa Yanes Erythrocyte distribution width (RBC) [Ratio] 12.9 % Normal 11.0-15.0 [facility] Comment on above: Performed By: #### C BC ####[facility] Wfjoactpwf88[address] [place], [place] [address]Dr. Villa Yanes Hematocrit (Bld) [Volume fraction] 32.6 % Critically low 42.0-54.0 [facility] Comment on above: Performed By: #### C BC ####[facility] Rrdytyhnog[address] [place], [place] [address]Dr. Villa Yanes Hemoglobin (Bld) [Mass/Vol] 10.4 g/dL Critically low 14.0-18.0 [facility] Comment on above: Performed By: #### C BC ####[facility] Tqmpqawxol2[address] [place], [place] [address]Dr. Brooklynkaren Yanes IG # 0.13 10e3/ul Critically high 0.00-0.03 [facility] Comment on above: Performed By: #### C BC ####[facility] Johcydidvg0858 [place] [id number]. Villa Yanes IG % 0.9 % Critically high 0.0-0.5 [facility] Comment on above: Performed By: #### C BC ####[facility] Qmiwgnilpk35[address] [place] [id number]. Villa Yanes LYMPH # 1.0 103/ul Critically low 1.2-3.8 [facility] Comment on above: Performed By: #### C BC ####[facility] Wom[address]zpqcf[address] [place] [address]Dr. Villa Yanes Lymphocytes/100 WBC (Bld) 6.7 % Critically low 20.5-60.0 [facility] Comment on above: Performed By: #### C BC ####[facility] Kdyuulcdgt[address] [place] [address]Dr. Brooklynkaren Yanes MANUAL DIFF REQ NO Normal [facility] Comment on above: Performed By: #### C BC ####[facility] Xjdiutcmxg[address] [place], [place] [id number]. Villa Yanes MCH (RBC) [Entitic mass] 30.5 pg Normal 25.9-34.0 [facility] Comment on above: Performed By: #### C BC ####[facility] Rrwureqehd7584 [place] [phone]. Villa Yanes MCHC (RBC) [Mass/Vol] 31.9 g/dL Normal 29.9-35.2 [facility] Comment on above: Performed By: #### C BC ####[facility] Vsujazhcyk[address] [place], [place] [id number]. Villa Yanes MCV (RBC) [Entitic vol] 95.6 fL Critically high 80.0-94.0 [facility] Comment on above: Performed By: #### C BC ####[facility] Fxijxnmacj[address] [place], [place] [address]Dr. Villa Yanes MONO # 0.8 103/ul Normal 0.3-0.8 [facility] Comment on above: Performed By: #### C BC ####[facility] Cloeoldqym4862 [place] [phone]. Villa Yanes Monocytes/100 WBC (Bld) 5.4 % Normal 1.7-12.0 [facility] Comment on above: Performed By: #### C BC ####[facility] Dgljwhqykd3274 [place] [phone]. Villa Yanes NEUT # 13.0 103/ul Critically high 1.4-6.5 [facility] Comment on above: Performed By: #### C BC ####[facility] Zwhmjxrewe6[address] [place] [address]Dr. Villa Yanes Neutrophils/100 WBC (Bld) 85.6 % Critically high 43.0-75.0 [facility] Comment on above: Performed By: #### C BC ####[facility] Gmbvezkrkf8337 [place] [address]Dr. Villa Yanes Platelet mean volume (Bld) [Entitic vol] 9.8 fL Normal 9.5-13.5 [facility] Comment on above: Performed By: #### C BC ####[facility] Gkszgufxgf39[address] [place] [address]Dr. Villa Yanes PLT 299 103/ul Normal 150-450 [facility] Comment on above: Performed By: #### C BC ####[facility] Zccrtfnpmb2329 [place] [address]Dr. Villa Yanes RBC 3.41 106/ul Critically low 4.70-6.10 [facility] Comment on above: Performed By: #### C BC ####[facility] Nxesmkxlfb0738 [place] [address]Dr. Villa Yanes WBC 15.1 103/ul Critically high 4.0-11.0 [facility] Comment on above: Performed By: #### C BC ####[facility] Qwbrbsjbsb8[address] [place] [address]Dr. Villa Yaens CT ABD/PELV W CONon 10-10-19 CT ABD/PELV W CON Normal [facility] MAGNESIUMon 10-09-2021 Magnesium [Mass/Vol] 2.5 mg/dL Critically high 1.8-2.4 [facility] Comment on above: Performed By: #### PETER Hart ####[facility] Pzlcuyuvbq[address] [place], [place] [address]Dr. Villa Yanes PHOSPHORUSon 10-09-2021 Phosphate [Mass/Vol] 3.8 mg/dL Normal 2.6-4.7 [facility] Comment on above: Performed By: #### PETER Hart ####[facility] Lrsseufykh[address] [place], [place] [address]Dr. Villa Yanes POINT OF CARE GLUCOSEon 09-21 Glucose [Mass/Vol] 244 mg/dL Critically high 74-106 [facility] Comment on above: Performed By: #### P OCGLUC ####[facility] Xniidihhzj57[address] [place], [place] [address]Dr. Villa Yanes Glucose [Mass/Vol] 171 mg/dL Critically high 74-106 [facility] Comment on above: Performed By: #### P OCGLUC ####[facility] Nmkjjauskb[address] [place], [place] [address]Dr. Villa Yanes Glucose [Mass/Vol] 203 mg/dL Critically high -106 [facility] Comment on above: Performed By: #### P OCGLUC ####[facility] Bowpnhxrsg67[address] [place], [place] [address]Dr. Villa Yanes Glucose [Mass/Vol] 171 mg/dL Critically high 74-106 [facility] Comment on above: Performed By: #### P OCGLUC ####[facility] Ahlimunwnp33[address] [place], [place] [address]Dr. Villa Yanes PROF 14(COMP METB)on 022 Albumin [Mass/Vol] 2.0 g/dL Critically low 3.4-5.0 [facility] Comment on above: Performed By: #### B CUTTING AND BONING SUPERVISOR, CMP ####[facility] Fbtrjuxyxu34[address] [place], [place] [address]Dr. Villa Yanes Albumin/Globulin [Mass ratio] 0.5 {ratio} Normal [facility] Comment on above: Performed By: #### B CUTTING AND BONING SUPERVISOR, CMP ####[facility] Crjuahsvls0369 [place] [phone]. Villa Yanes ALP [Catalytic activity/Vol] 113 U/L Normal 46-116 [facility] Comment on above: Performed By: #### B CUTTING AND BONING SUPERVISOR, CMP ####[facility] Upwskytuhu20[address] [place] [phone]. Villa Joaquín ALT [Catalytic activity/Vol] 10 U/L Critically low 16-63 [facility] Comment on above: Performed By: #### B CUTTING AND BONING SUPERVISOR, CMP ####[facility] Jklcpybkqf8511 [place] [phone]. Villa Yanes Anion gap [Moles/Vol] 11.0 mmol/L Normal Th e [facility] Comment on above: Performed By: #### B CUTTING AND BONING SUPERVISOR, CMP ####[facility] Pqmsxmilbm17[address] [place], [place] [address]Dr. Villa Yanes AST [Catalytic activity/Vol] 28 U/L Normal 15-37 [facility] Comment on above: Performed By: #### B CUTTING AND BONING SUPERVISOR, CMP ####[facility] Fuxdepazaa64[address] [place], [place] [address]Dr. Brooklynkaren Joaquín Bilirubin [Mass/Vol] 0.3 mg/dL Normal 0.2-1.0 [facility] Comment on above: Performed By: #### B CUTTING AND BONING SUPERVISOR, CMP ####[facility] Nuiwfnzran0098 [place] [phone]. Villa Yanes Calcium [Mass/Vol] 8.7 mg/dL Normal 8.5-10.1 [facility] Comment on above: Performed By: #### B CUTTING AND BONING SUPERVISOR, CMP ####[facility] Pxccbxpfcx2636 [place] [phone]. Villa Yanes Chloride [Moles/Vol] 100 mmol/L Normal 98-107 [facility] Comment on above: Performed By: #### B CUTTING AND BONING SUPERVISOR, CMP ####[facility] Zfoavciznw80[address] [place] [address]Dr. Villa Yanes CO2 [Moles/Vol] 28.1 mmol/L Normal 21.0-32.0 [facility] Comment on above: Performed By: #### B CUTTING AND BONING SUPERVISOR, CMP ####[facility] Ooqkaqooot85[address] [place] [address]Dr. Villa Joaquín Creatinine [Mass/Vol] 1.61 mg/dL Critically high 0.70-1.30 [facility] Comment on above: Performed By: #### B CUTTING AND BONING SUPERVISOR, CMP ####[facility] Dlxgfgutaf90[address] [place], [place] [address]Dr. iVlla Joaquín EGFR-AF CROATIAN 50 mL/min/1.73m2 Critically low >=60 [facility] Comment on above: Performed By: #### B CUTTING AND BONING SUPERVISOR, CMP ####[facility] Ptppckwonu45[address] [place], [place] [address]Dr. Villa Yanes EGFR-NON AF CROATIAN 42 mL/min/1.73m2 Critically low >=60 [facility] Comment on above: Performed By: #### B CUTTING AND BONING SUPERVISOR, CMP ####[facility] Ftutjwhlww[address] [place], [place] [address]Dr. Villa Yanes Globulin (S) [Mass/Vol] 4.1 g/dL Normal [facility] Comment on above: Performed By: #### B CUTTING AND BONING SUPERVISOR, CMP ####[facility] Pmfruvscot22[address] [place], [place] [address]Dr. Villa Yanes Glucose [Mass/Vol] 154 mg/dL Critically high 74-106 T [facility] Comment on above: Performed By: #### B CUTTING AND BONING SUPERVISOR, CMP ####[facility] Dblnnallwv17[address] [place], [place] [address]Dr. Villa Yanes Potassium [Moles/Vol] 4.1 mmol/L Normal 3.5-5.1 [facility] Comment on above: Performed By: #### B CUTTING AND BONING SUPERVISOR, CMP ####[facility] Skwbrmcemr1842[address] [place], [place] [address]Dr. Villa Yanes Protein [Mass/Vol] 6.1 g/dL Critically low 6.4-8.2 [facility] Comment on above: Performed By: #### B CUTTING AND BONING SUPERVISOR, CMP ####[facility] Qehzfjejww74[address] [place], [place] [address]Dr. Villa Yanes Sodium [Moles/Vol] 135 mmol/L Critically low 136-145 Th [facility] Comment on above: Performed By: #### B CUTTING AND BONING SUPERVISOR, CMP ####[facility] Lmidztrsxf35[address] [place], [place] [address]Dr. Villa Yanes Urea nitrogen [Mass/Vol] 29.0 mg/dL Critically high 7.0-18.0 [facility] Comment on above: Performed By: #### B CUTTING AND BONING SUPERVISOR, CMP ####[facility] Kwyworuabx68[address] [place], [place] [address]Dr. Villa Yanes Urea nitrogen/Creatinine [Mass ratio] 18.0 mg/mg Normal [facility] Comment on above: Performed By: #### B CUTTING AND BONING SUPERVISOR, CMP ####[facility] Ijwdbjlbrl84[address] [place], [place] [address]Dr. Villa Yanes XR ABD FLAT UP_PA Temo 10-09 XR ABD FLAT UP_PA CH Normal [facility] BNPon 10-08-2021 Natriuretic peptide B (Bld) [Mass/Vol] 1299.0 pg/mL Normal <=1,800.0 [facility] Comment on above: Performed By: #### B CUTTING AND BONING SUPERVISOR, CMP ####[facility] Jpsqdrgnij9[address] [place], [place] [address]Dr. Villa Yanes CBC AUTO DIFFon 10-08-2021 BASO # 0.1 103/ul Normal 0.0-0.1 [facility] Comment on above: Performed By: #### C BC ####[facility] Kshbveyiis7[address] [place], [place] [address]Dr. Villa Yanes Basophils/100 WBC (Bld) 0.7 % Normal 0.2-2.0 [facility] Comment on above: Performed By: #### C BC ####[facility] Piilkytfqc16[address] [place], [place] [address]Dr. Villa Yanes EO # 0.4 103/ul Normal 0.0-0.7 [facility] Comment on above: Performed By: #### C BC ####[facility] Audunfvsqx5167[address] [place], [place] [address]Dr. Villa Yanes Eosinophils/100 WBC (Bld) 4.5 % Normal 0.9-7.0 [facility] Comment on above: Performed By: #### C BC ####[facility] Cbpgeyztrp49[address] [place], [place] [address]Dr. Villa Yanes Erythrocyte distribution width (RBC) [Ratio] 13.1 % Normal 11.0-15.0 [facility] Comment on above: Performed By: #### C BC ####[facility] Ffebodjzct[address] [place], [place] [address]DrBrenden Yanes Hematocrit (Bld) [Volume fraction] 32.8 % Critically low 42.0-54.0 [facility] Comment on above: Performed By: #### C BC ####[facility] Uivsdtvkzj8[address] [place], [place] [address]DrBrenden Yanes Hemoglobin (Bld) [Mass/Vol] 10.3 g/dL Critically low 14.0-18.0 [facility] Comment on above: Performed By: #### C BC ####[facility] Ubgzitoigw020[address] [place], [place] [address]Dr. Villa Yanes IG # 0.13 10e3/ul Critically high 0.00-0.03 [facility] Comment on above: Performed By: #### C BC ####[facility] Bvwfixfvxy9[address] [place], [place] [address]Dr. Villa Yanes IG % 1.4 % Critically high 0.0-0.5 [facility] Comment on above: Performed By: #### C BC ####[facility] Toxaugjmdx[address] [place], [place] [address]DrBrenden Yanes LYMPH # 1.2 103/ul Normal 1.2-3.8 [facility] Comment on above: Performed By: #### C BC ####[facility] Pkuafihlrw[address] [place], [place] [address]DrBrenden Yanes Lymphocytes/100 WBC (Bld) 13.0 % Critically low 20.5-60.0 [facility] Comment on above: Performed By: #### C BC ####[facility] Irwgqekjra[address] [place], [place] [address]DrBrenden Yanes MANUAL DIFF REQ NO Normal [facility] Comment on above: Performed By: #### C BC ####[facility] Idqvpzrkxg9378 [place] [address]DrBrenden Yanes MCH (RBC) [Entitic mass] 30.2 pg Normal 25.9-34.0 [facility] Comment on above: Performed By: #### C BC ####[facility] Zmyhcouzag4311 [place] [address]DrBrenden Yanes MCHC (RBC) [Mass/Vol] 31.4 g/dL Normal 29.9-35.2 [facility] Comment on above: Performed By: #### C BC ####[facility] Ivrapzmshd38[address] [place], [place] [address]DrBrenden Yanes MCV (RBC) [Entitic vol] 96.2 fL Critically high 80.0-94.0 [facility] Comment on above: Performed By: #### C BC ####[facility] Unwjybxnen36[address] [place], [place] [address]DrBrenden Yanes MONO # 0.7 103/ul Normal 0.3-0.8 [facility] Comment on above: Performed By: #### C BC ####[facility] Kubgmrfnia34[address] [place], [place] [address]DrBrenden Yanes Monocytes/100 WBC (Bld) 7.9 % Normal 1.7-12.0 [facility] Comment on above: Performed By: #### C BC ####[facility] Askydfcbdz2886[address] [place], [place] [address]DrBrenden Yanes NEUT # 6.8 103/ul Critically high 1.4-6.5 [facility] Comment on above: Performed By: #### C BC ####[facility] Pjsuispqau5[address] [place], [place] [address]DrBrenden Yanes Neutrophils/100 WBC (Bld) 72.5 % Normal 43.0-75.0 [facility] Comment on above: Performed By: #### C BC ####[facility] Ydauativaw68[address] [place], [place] [address]DrBrenden Yanes Platelet mean volume (Bld) [Entitic vol] 9.2 fL Critically low 9.5-13.5 [facility] Comment on above: Performed By: #### C BC ####[facility] Icgfacxtjj7354 [place] [id number]. Villa Yanes PLT 258 103/ul Normal 150-450 [facility] Comment on above: Performed By: #### C BC ####[facility] Cmdmbquurb24[address] [place] [address]Dr. Villa Yanes RBC 3.41 106/ul Critically low 4.70-6.10 [facility] Comment on above: Performed By: #### C BC ####[facility] L[address]hpzvkajz[address] [place] [address]Dr. Villa Yanes WBC 9.4 103/ul Normal 4.0-11.0 [facility] Comment on above: Performed By: #### C BC ####[facility] Sltpljawep8[address] [place] [address]DrBrenden Villa Yanes POINT OF CARE GLUCOSEon 09-21 Glucose [Mass/Vol] 180 mg/dL Critically high 74-106 [facility] Comment on above: Performed By: #### P OCGLUC ####[facility] Zlctlxudny9387 [place] [address]Dr. Villa Yanes Glucose [Mass/Vol] 159 mg/dL Critically high 74-106 [facility] Comment on above: Performed By: #### P OCGLUC ####[facility] Wnznqhxxfr2025 [place] [address]Dr. Villa Yanes Glucose [Mass/Vol] 110 mg/dL Critically high 74-106 [facility] Comment on above: Performed By: #### P OCGLUC ####[facility] Ihfgtvctfm4925 [place] [address]DrBrenden Villa Joaquín PROF 14(COMP METB)on 022 Albumin [Mass/Vol] 2.1 g/dL Critically low 3.4-5.0 [facility] Comment on above: Performed By: #### B CUTTING AND BONING SUPERVISOR, CMP ####[facility] Cvmnsedjxe7603 [place] [id number]. Villa Yanes Albumin/Globulin [Mass ratio] 0.5 {ratio} Normal [facility] Comment on above: Performed By: #### B CUTTING AND BONING SUPERVISOR, CMP ####[facility] Qkgrlfgklu3278 [place] [address]Dr. Villa Yanes ALP [Catalytic activity/Vol] 92 U/L Normal 46-116 [facility] Comment on above: Performed By: #### B CUTTING AND BONING SUPERVISOR, CMP ####[facility] Ssswmudqpu6021 [place] [address]Dr. Villa Yanes ALT [Catalytic activity/Vol] 9 U/L Critically low 16-63 [facility] Comment on above: Performed By: #### B CUTTING AND BONING SUPERVISOR, CMP ####[facility] Yfpubqnndv32[address] [place], [place] [address]Dr. Villa Yanes Anion gap [Moles/Vol] 9.6 mmol/L Normal [facility] Comment on above: Performed By: #### B CUTTING AND BONING SUPERVISOR, CMP ####[facility] Wpumnwwutq1252[address] [place], [place] [address]Dr. Villa Yanes AST [Catalytic activity/Vol] 13 U/L Critically low 15-37 [facility] Comment on above: Performed By: #### B CUTTING AND BONING SUPERVISOR, CMP ####[facility] Djdmdaiglg3369[address] [place], [place] [address]Dr. Villa Yanes Bilirubin [Mass/Vol] 0.3 mg/dL Normal 0.2-1.0 [facility] Comment on above: Performed By: #### B CUTTING AND BONING SUPERVISOR, CMP ####[facility] Uuixomidog0481 [place] [address]Dr. Villa Yanes Calcium [Mass/Vol] 9.0 mg/dL Normal 8.5-10.1 [facility] Comment on above: Performed By: #### B CUTTING AND BONING SUPERVISOR, CMP ####[facility] Zsdsrehizw235[address] [place], [place] [address]Dr. Villa Yanes Chloride [Moles/Vol] 102 mmol/L Normal 98-107 [facility] Comment on above: Performed By: #### B CUTTING AND BONING SUPERVISOR, CMP ####[facility] Xmzyryyekd36[address] [place], [place] [address]Dr. Villa Joaquín CO2 [Moles/Vol] 29.5 mmol/L Normal 21.0-32.0 [facility] Comment on above: Performed By: #### B CUTTING AND BONING SUPERVISOR, CMP ####[facility] Taehvmggib88[address] [place], [place] [address]Dr. Villa Joaquín Creatinine [Mass/Vol] 1.49 mg/dL Critically high 0.70-1.30 [facility] Comment on above: Performed By: #### B CUTTING AND BONING SUPERVISOR, CMP ####[facility] Xutdxmuwgr36[address] [place], [place] [address]Dr. Villa Yanes EGFR-AF CROATIAN 55 mL/min/1.73m2 Critically low >=60 [facility] Comment on above: Performed By: #### B CUTTING AND BONING SUPERVISOR, CMP ####[facility] Lkoiqwfuyb7[address] [place], [place] [address]Dr. Villa Yanes EGFR-NON AF CROATIAN 45 mL/min/1.73m2 Critically low >=60 [facility] Comment on above: Performed By: #### B CUTTING AND BONING SUPERVISOR, CMP ####[facility] Tclakmkswq01[address] [place], [place] [address]Dr. Villa Yanes Globulin (S) [Mass/Vol] 4.2 g/dL Normal [facility] Comment on above: Performed By: #### B CUTTING AND BONING SUPERVISOR, CMP ####[facility] Eogkwjzbex[address] [place], [place] [address]Dr. Villa Yanes Glucose [Mass/Vol] 157 mg/dL Critically high 74-106 [facility] Comment on above: Performed By: #### B CUTTING AND BONING SUPERVISOR, CMP ####[facility] Gsflxcgzgv[address] [place], [place] [address]Dr. Villa Yanes Potassium [Moles/Vol] 4.1 mmol/L Normal 3.5-5.1 [facility] Comment on above: Performed By: #### B CUTTING AND BONING SUPERVISOR, CMP ####[facility] Cjbpmoctbw01[address] [place], [place] [address]Dr. Villa Yanes Protein [Mass/Vol] 6.3 g/dL Critically low 6.4-8.2 Th [facility] Comment on above: Performed By: #### B CUTTING AND BONING SUPERVISOR, CMP ####[facility] Xeijhwelbb5[address] [place] [address]Dr. Villa Yanes Sodium [Moles/Vol] 137 mmol/L Normal 136-145 [facility] Comment on above: Performed By: #### B CUTTING AND BONING SUPERVISOR, CMP ####[facility] Bojvwnadal[address]49 [place] [address]Dr. Villa Joaquín Urea nitrogen [Mass/Vol] 26.0 mg/dL Critically high 7.0-18.0 [facility] Comment on above: Performed By: #### B CUTTING AND BONING SUPERVISOR, CMP ####[facility] Dvakbxkvmp2780 [place] [address]Dr. Brooklynkaren Joaquín Urea nitrogen/Creatinine [Mass ratio] 17.4 mg/mg Normal [facility] Comment on above: Performed By: #### B CUTTING AND BONING SUPERVISOR, CMP ####[facility] Qkjnwmcjva7777 [place] [address]Dr. Villa Yanes POINT OF CARE GLUCOSEon 09-21 Glucose [Mass/Vol] 145 mg/dL Critically high 74-106 [facility] Comment on above: Performed By: #### P OCGLUC ####[facility] Ghdksvbpmm6[address] [place] [address]Dr. Villa Yanes Glucose [Mass/Vol] 163 mg/dL Critically high 74-106 [facility] Comment on above: Performed By: #### P OCGLUC ####[facility] Oiybeqyzew7[address] [place] [address]Dr. Villa Yanes Glucose [Mass/Vol] 169 mg/dL Critically high 74-106 [facility] Comment on above: Performed By: #### P OCGLUC ####[facility] [address]vzkwyflrw[address] [place], [place] [address]Dr. Villa Yanes Tobacco Screening.on 022 Adult depression screening assessment No [facility] Haier 250 DO Work Phone: Fall risk assessment b) One or more fall s in the last year [facility] Haier 250 DO Work Phone: Tobacco use status CPHS a) Yes [facility] marika 250 DO Work Phone: Tobacco Screening. Yes [facility] marika 250 DO Work Phone: Vital Signs Date Time Vital Sign Value Performing Clinician Facility 02-04-2023 11:57-0400 Body height 180.34 cm Micheal M Hoy Work Phone: [facility] 250 DO Work Phone: 02-04-2023 11:57-0400 Body mass index (BMI) [Ratio] 19.53 kg/m2 Micheal M Hoy Work Phone: [facility] 250 DO Work Phone: 02-04-2023 11:57-0400 Body surface area Derived from formula 1.81 m2 Micheal M Hoy Work Phone: [facility]Heriberto 250 DO Work Phone: 02-04-2023 11:57-0400 Body weight 63.5 kg Micheal M Hoy Work Phone: [facility] 250 DO Work Phone: 02-04-2023 11:57-0400 Diastolic blood pressure 62 mm[Hg] Micheal M Hoy Work Phone: [facility] 250 DO Work Phone: 02-04-2023 11:57-0400 Heart rate 62 /min Micheal M Hoy Work Phone: [facility] 250 DO Work Phone: 02-04-2023 11:57-0400 Systolic blood pressure 140 mm[Hg] Micheal M Hoy Work Phone: [facility] 250 DO Work Phone: 11-26-2022 00:00-0400 55 1 Micheal M Hoy Work Phone: [facility] 250 DO Work Phone: Comment on above: [id number] 11-25-2022 22:09-0400 Body height 180.34 cm MD Micheal Gutiérrez Work Phone: [facility] 11-25-2022 22:09-0400 Body temperature 98.1 [degF] MD Micheal Gutiérrez Work Phone: [facility] 11-25-2022 22:09-0400 Body weight 56.9 kg MD Micheal Gutiérrez Work Phone: [facility] 11-25-2022 22:09-0400 Diastolic blood pressure 94 mm[Hg] MD Micheal Gutiérrez Work Phone: [facility] 11-25-2022 22:09-0400 Heart rate 69 /min MD Micheal Gutiérrez Work Phone: [facility] 11-25-2022 22:09-0400 Respiratory rate 18 /min MD Micheal Gutiérrez Work Phone: [facility] 11-25-2022 22:09-0400 SaO2% (BldA) [Mass fraction] 94 % MD Micheal Gutiérrez Work Phone: [facility] 11-25-2022 22:09-0400 Systolic blood pressure 177 mm[Hg] MD Micheal Gutiérrez Work Phone: [facility] 08-04-2022 11:02-0400 Body height 180.34 cm Micheal Dick Torsteny Work Phone: [facility] 250 DO Work Phone: 08-04-2022 11:02-0400 Body mass index (BMI) [Ratio] 17.71 kg/m2 Michealkiersten Sarmientoy Work Phone: [facility] 250 DO Work Phone: 08-04-2022 11:02-0400 Body surface area Derived from formula 1.74 m2 Michealkiersten Sarmientoy Work Phone: [facility] 250 DO Work Phone: 08-04-2022 11:02-0400 Body weight 57.61 kg Micheal M Hoy Work Phone: [facility] 250 DO Work Phone: 08-04-2022 11:02-0400 Diastolic blood pressure 60 mm[Hg] Micheal M Hoy Work Phone: [facility]Her[facility]erto 250 DO Work Phone: 08-04-2022 11:02-0400 Heart rate 82 /min Micheal M Hoy Work Phone: [facility] DO Work Phone: 08-04-2022 11:02-0400 Systolic blood pressure 120 mm[Hg] Micheal M Hoy Work Phone: [facility] DO Work Phone: 03-12-2022 12:03-0400 Body height 180.34 cm Micheal M Hoy Work Phone: [facility] DO Work Phone: 03-12-2022 12:03-0400 Body mass index (BMI) [Ratio] 19.67 kg/m2 Micheal M Hoy Work Phone: [facility] DO Work Phone: 03-12-2022 12:03-0400 Body surface area Derived from formula 1.82 m2 Micheal M Hoy Work Phone: [facility] DO Work Phone: 03-12-2022 12:03-0400 Body weight 63.96 kg Micheal M Hoy Work Phone: [facility] DO Work Phone: 03-12-2022 12:03-0400 Diastolic blood pressure 64 mm[Hg] Micheal M Hoy Work Phone: [facility] DO Work Phone: 03-12-2022 12:03-0400 Heart rate 64 /min Micheal Dick Hoy Work Phone: [facility] DO Work Phone: 03-12-2022 12:03-0400 Systolic blood pressure 134 mm[Hg] Micheal Dick Hoy Work Phone: [facility] DO Work Phone: 02-17-2022 15:33-0400 Body height 180.34 cm Micheal Dick Hoy Work Phone: [facility] DO Work Phone: 02-17-2022 15:33-0400 Body mass index (BMI) [Ratio] 19.72 kg/m2 Micheal Dick Hoy Work Phone: [facility] DO Work Phone: 02-17-2022 15:33-0400 Body surface area Derived from formula 1.82 m2 Micheal Dick Hoy Work Phone: [facility] DO Work Phone: 02-17-2022 15:33-0400 Body weight 64.13 kg Micheal Dick Hoy Work Phone: [facility] DO Work Phone: 02-17-2022 15:33-0400 Diastolic blood pressure 70 mm[Hg] Micheal M Hoy Work Phone: [facility] DO Work Phone: 02-17-2022 15:33-0400 Heart rate 80 /min Micheal M Hoy Work Phone: [facility] DO Work Phone: 02-17-2022 15:33-0400 Systolic blood pressure 124 mm[Hg] Micheal M Hoy Work Phone: [facility] DO Work Phone: 2022 14:04-0400 Body height 170.8 cm Billie Guan MD Work Phone: [facility] 2022 14:04-0400 Body weight 62.14 kg Billie Guan MD Work Phone: [facility] 2022 14:04-0400 Diastolic blood pressure 76 mm[Hg] Billie Guan MD Work Phone: [facility] 2022 14:04-0400 Heart rate 78 /min Billie Guan MD Work Phone: [facility] 2022 14:04-0400 Systolic blood pressure 124 mm[Hg] Billie Guan MD Work Phone: [facility] 01-12-2022 11:28-0400 Body height 180.34 cm Micheal M Hoy Work Phone: [facility] DO Work Phone: 01-12-2022 11:28-0400 Body mass index (BMI) [Ratio] 18.69 kg/m2 Micheal M Hoy Work Phone: [facility] DO Work Phone: 01-12-2022 11:28-0400 Body surface area Derived from formula 1.78 m2 Micheal M Hoy Work Phone: [facility] DO Work Phone: 01-12-2022 11:28-0400 Body weight 60.78 kg Micheal M Hoy Work Phone: [facility] DO Work Phone: 01-12-2022 11:28-0400 Diastolic blood pressure 52 mm[Hg] Micheal M Hoy Work Phone: [facility] DO Work Phone: 01-12-2022 11:28-0400 Heart rate 96 /min Micheal Gutiérrez Work Phone: [facility] DO Work Phone: 01-12-2022 11:28-0400 Systolic blood pressure 100 mm[Hg] Micheal Gutiérrez Work Phone: [facility] DO Work Phone: 12-31-2021 12:26-0400 Body temperature 98.4 [degF] Wanchana Sachai SHUTTLE THREADER.INFORMATION SERVICES CONSULTANT Work Phone: [facility] 12-31-2021 12:26-0400 Diastolic blood pressure 85 mm[Hg] Wanchana Sachai SHUTTLE THREADER.INFORMATION SERVICES CONSULTANT Work Phone: [facility] 12-31-2021 12:26-0400 Heart rate 67 /min Wanchana Sachai SHUTTLE THREADER.INFORMATION SERVICES CONSULTANT Work Phone: [facility] 12-31-2021 12:26-0400 SaO2% (BldA) [Mass fraction] 98 % Wanchana Sachai SHUTTLE THREADER.INFORMATION SERVICES CONSULTANT Work Phone: [facility] 12-31-2021 12:26-0400 Systolic blood pressure 138 mm[Hg] Wanchana Sachai SHUTTLE THREADER.INFORMATION SERVICES CONSULTANT Work Phone: [facility] 12-31-2021 09:48-0400 Body height 170.8 cm Idris Hawk MD Work Phone: [facility] 12-31-2021 09:48-0400 Body temperature 97.5 [degF] Idris Hawk MD Work Phone: [facility] 12-31-2021 09:48-0400 Body weight 58.92 kg Idris Hawk MD Work Phone: [facility] 12-31-2021 09:48-0400 Diastolic blood pressure 57 mm[Hg] Idris Hawk MD Work Phone: [facility] 12-31-2021 09:48-0400 Heart rate 93 /min Idris Hawk MD Work Phone: [facility] 12-31-2021 09:48-0400 Respiratory rate 24 /min Idris Hawk MD Work Phone: [facility] 12-31-2021 09:48-0400 SaO2% (BldA) [Mass fraction] 99 % Idris Hawk MD Work Phone: [facility] 12-31-2021 09:48-0400 Systolic blood pressure 104 mm[Hg] Idris Hawk MD Work Phone: [facility] 11-27-2021 13:06-0400 Body height 180.3 cm Alissa Arrigon SHUTTLE THREADER.INFORMATION SERVICES CONSULTANT Work Phone: [facility] 11-27-2021 13:06-0400 Body weight 58.88 kg Alissa Arrigon SHUTTLE THREADER.INFORMATION SERVICES CONSULTANT Work Phone: [facility] 11-27-2021 13:06-0400 Diastolic blood pressure 63 mm[Hg] Alissa Arrigon SHUTTLE THREADER.INFORMATION SERVICES CONSULTANT Work Phone: [facility] 11-27-2021 13:06-0400 Heart rate 97 /min Alissa Arrigon SHUTTLE THREADER.INFORMATION SERVICES CONSULTANT Work Phone: [facility] 11-27-2021 13:06-0400 Systolic blood pressure 125 mm[Hg] Alissa Arrigon SHUTTLE THREADER.INFORMATION SERVICES CONSULTANT Work Phone: [facility] 11-04-2021 09:45-0400 60 1 Micheal M Hoy Work Phone: [facility] [place] Work Phone: Comment on above: [id number] 09-11-2021 10:19-0400 Body height 180.34 cm Micheal M Hoy Work Phone: [facility] DO Work Phone: 09-11-2021 10:19-0400 Body mass index (BMI) [Ratio] 20.92 kg/m2 Micheal M Hoy Work Phone: [facility] DO Work Phone: 09-11-2021 10:19-0400 Body surface area Derived from formula 1.87 m2 Micheal M Hoy Work Phone: [facility] DO Work Phone: 09-11-2021 10:19-0400 Body weight 68.04 kg Micheal M Hoy Work Phone: [facility] DO Work Phone: 09-11-2021 10:19-0400 Diastolic blood pressure 69 mm[Hg] Micheal M Hoy Work Phone: [facility] DO Work Phone: 09-11-2021 10:19-0400 Heart rate 77 /min Micheal M Hoy Work Phone: [facility] DO Work Phone: 09-11-2021 10:19-0400 Systolic blood pressure 101 mm[Hg] Micheal M Hoy Work Phone: [facility] DO Work Phone: Encounters Encounter Date Encounter Type Care Provider Facility Start: 02-04-2023 Office outpatient vi sit 25 minutes Micheal M Hoy Work Phone: [facility] DO Work Phone: Start: 02-04-[address] Lauro Collins Facility: Start: 11-27-[address] Micheal Gutiérrez Facility:[id number] Start: 11-26-[address] Micheal Gutiérrez Facility:[id number] Start: 11-25-2022 End: 11-30-2022 Evaluation and management of inpatient Rosie Mischler Facility[facility] Start: 11-25-2022 Evaluation and management of inpatient MD Micheal Gutiérrez Work Phone: [facility] [place] [facility] Work Phone: Start: 10-05-2022 End: 10-05-2022 ambulatory ANAHY CHAUDHRY . Facility:H1 Start: 09-11-2022 End: 09-12-[address] RANGEL MCGOVERN . Facility:[facility]1 Start: 09-10-2022 ambulatory DEVON SILVESTRE . Facili ty:H1 Start: 08-17-2022 End: 08-18-[address] MICHEAL GUTIÉRREZ . Facility:H1 Start: 08-04-2022 Office outpatient vi sit 25 minutes Micheal Gutiérrez Work Phone: [facility] DO Work Phone: Start: 08-04-[address] Lauro Collins Facility: Start: 07-30-2022 End: 07-31-[address] MICHEAL GUTIÉRREZ . Facility:H1 Start: 07-28-2022 End: 07-29-2022 ambulatory MYNOR TEIXEIRAMIGREGORY . Facility:H1 Start: 07-16-2022 End: 07-17-2022 ambulatory MYNOR TEIXEIRAMIPATHBraydon . Facility:H1 Start: 07-13-2022 Telephone encounter Micheal Gutiérrez Work Phone: [facility] DO Work Phone: Start: 07-10-2022 End: 07-10-2022 ambulatory Hansel Otero PA-C Work Phone: General Surgery Comment on above: S/P percutaneous end oscopic gastrostomy (PEG) tube placement (HCC) (Primary Dx) Start: 07-10-2022 End: 07-10-2022 Telemedicine consultation with patient Hansel Otero PA-C Work Phone: [facility] Start: 07-01-2022 End: 07-01-2022 ambulatory GAURAV ARENAS Facility:H1 Start: 06-26-2022 End: 06-29-[address] MICHEAL GUTIÉRREZ . Facility:H1 Start: 06-09-2022 End: 06-10-[address] MICHEAL GUTIÉRREZ . Facility:H1 Start: 06-06-2022 End: 06-06-[address] MICHEAL GUTIÉRREZ . Facility:H1 Start: 06-06-2022 End: 06-06-[address] MICHEAL GUTIÉRREZ . Facility:H1 Start: 05-24-2022 End: 06-06-[address] MICHEAL GUTIÉRREZ . Facility:H1 Start: 05-08-2022 End: 05-09-[address] MICHEAL GUTIÉRREZ . Facility:H1 Start: 05-07-2022 End: 05-23-[address] MICHEAL GUTIÉRREZ . Facility:H1 Start: 04-18-2022 End: 04-18-[address] RANGEL MCGOVERN . Facility:H1 Start: 04-08-2022 End: 04-09-[address] MICHEAL GUTIÉRREZ . Facility:H1 Start: 04-03-2022 End: 04-03-[address] DARIAN BUTTS Facility:H1 Start: 03-12-[address] Lauro Collins Facility: Start: 03-12-2022 Office outpatient vi sit 40 minutes Micheal M Hoy Work Phone: [facility] DO Work Phone: Start: 02-20-2022 End: 02-20-2022 ambulatory MICHEAL GUTIÉRREZ Facility:[facility] Start: 02-17-2022 Office outpatient vi sit 15 minutes Micheal M Hoy Work Phone: [facility] DO Work Phone: Start: 02-17-2022 Patient encounter procedure Micheal M Hoy Work Phone: [facility] DO Work Phone: Start: 02-17-2022 Refill Alissa Colindres on SHUTTLE THREADER.INFORMATION SERVICES CONSULTANT Work Phone: Urology Comment on above: Opened In Error Start: 02-02-2022 Encounter for other preprocedural examination BILLIE GUAN [facility] Start: 02-02-2022 End: 02-03-2022 Evaluation and management of inpatient BILLIE Roxanna FREIDA Facility:[facility] Start: 02-02-2022 Telephone encounter Alissa mcqueen APRN.INFORMATION SERVICES CONSULTANT Work Phone: Urology Comment on above: Medication Problem Start: 01-27-2022 ambulatory iRvka Crespo RN General Surgery Comment on above: 01/28/2022 Start: 01-27-2022 Preprocedural examination done Rivka Crespo RN General Surgery Start: 01-27-2022 Telephone encounter Thu Lancaster RN General Surgery Comment on above: Patient Update Start: 01-24-2022 End: 01-24-2022 ambulatory MICHEAL GUTIÉRREZ Facility:[facility] Start: 2022 End: 01-24-2022 ambulatory [facility] Roxanna [facility] Facility:[facility] Start: 2022 End: 2022 Patient encounter procedure Billie Guan MD Work Phone: General Surgery Comment on above: 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) Start: 01-17-2022 End: 01-17-[address] ANAMARIA BENITEZ Facility: Start: 01-16-2022 End: 01-16-2022 Subsequent hospital visit by physician [facility] (I-Stat/1.5t) Radiology Comment on above: 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 Facili ty:H1 Start: 12-31-2021 End: 12-31-2021 Emergency department patient visit MICHEAL GUTIÉRREZ Facility:[facility] Start: 12-31-2021 End: 12-31-2021 ambulatory MICHEAL SARMIENTOBraydon Facility:[facility] Start: 12-31-2021 End: 12-31-2021 Office outpatient new 30 minutes Yadira Frazier SHUTTLE THREADER.INFORMATION SERVICES CONSULTANT Work Phone: [facility] Comment on above: Feeding tube blocked , initial encounter (Primary Dx); SOB (shortness of breath) on exertion; Chronic cough Start: 12-31-2021 End: 12-31-2021 ambulatory MICHEAL GUTIÉRREZ Facility:[facility] Start: 12-31-2021 End: 12-31-2021 Patient encounter procedure Idris Hawk MD Work Phone: Vascular Surg Dept Comment on above: Peripheral arterial disease (HCC) (Primary Dx) Start: 12-24-2021 End: 12-24-2021 ambulatory Michealkiersten Sarmientobraydon Facility:[facility] Start: 12-24-2021 End: 12-24-2021 Discharged Recurring MD Micheal Gutiérrez Work Phone: [facility]-Speech Therapy [facility] Start: 12-19-2021 End: 12-20-[address] MICHEAL GUTIÉRREZ . Facility:H1 Start: 12-18-2021 End: 12-19-[address] MICHEAL GUTIÉRREZ . Facility:H1 Start: 12-13-2021 Telephone encounter Brock garcia MD Work Phone: Urology Comment on above: Patient Question Start: 12-04-2021 End: 12-04-2021 ambulatory ALISSA LACKEY Facility:[facility] Start: 12-04-2021 Telephone encounter Alissa mcqueen SHUTTLE THREADER.INFORMATION SERVICES CONSULTANT Work Phone: Urology Comment on above: Results Start: 12-03-2021 ambulatory Alissa partida SHUTTLE THREADER.INFORMATION SERVICES CONSULTANT Work Phone: Urology Comment on above: Kidney CT Start: 12-02-2021 End: 12-02-2021 ambulatory ALISSA Florencia ARRIGON Facility:[facility] Start: 12-02-2021 End: 12-02-2021 Subsequent hospital visit by physician Karlene [facility] Karla Work Phone: Radiology Comment on above: Renal lesion [N28.9] Start: 11-27-2021 End: 11-28-2021 ambulatory Alissa P Arrigon SHUTTLE THREADER.INFORMATION SERVICES CONSULTANT Work Phone: Urology Start: 11-27-2021 Telephone encounter Micheal Gutiérrez MD Work Phone: NOC Comment on above: Follow Up Phone Call (All Clear) Start: 11-27-2021 End: 11-27-2021 Patient encounter procedure Alissa Torrezn SHUTTLE THREADER.INFORMATION SERVICES CONSULTANT Work Phone: Urology Comment on above: Urinary retention (P rimary Dx); Renal lesion Start: 11-21-2021 Admission to [facility] Micheal Gutiérrez MD Work Phone: [facility] Work Phone: Start: 11-20-2021 Telephone encounter Idris Hawk MD Work Phone: Vascular Surg Dept Comment on above: Appointment Start: 11-19-2021 Telephone encounter [facility] Work Phone: Start: 11-11-2021 Chart Update Micheal Gutiérrez Work Phone: [facility] DO Work Phone: Start: 11-11-[address] SHUKRI HONG . Facility: Start: 11-10-2021 Admission to [facility] Work Phone: Start: 11-09-2021 End: 11-20-2021 Evaluation and management of inpatient [facility] Facility:[facility] Start: 11-04-2021 Patient encounter procedure Michela Gutiérrez Work Phone: [facility] [place] Work Phone: Start: 10-28-2021 End: 10-28-[address] MICHEAL GUTIÉRREZ . Facility: Start: 09-23-2021 AUDIT Micheal Gutiérrez Work Phone: [facility] DO Work Phone: Start: 09-11-2021 Office outpatient vi sit 40 minutes Micheal Gutiérrez Work Phone: [facility] DO Work Phone: Start: 04-20-2018 End: 04-21-2018 Patient encounter procedure DEFAULT PHYSICIAN Facility:[facility] Procedures Date Procedure Procedure Detail Performing Clinician Start: 11-25-2022 Plain chest X-ray MD Micheal Gutiérrez Work Phone: Start: 12-02-2021 Ct abdomen w/o & w/contrast material Alissa Lackey APRN.INFORMATION SERVICES CONSULTANT Work Phone: Start: 11-15-2021 Antibody screen MICHEAL GUTIÉRREZ Comment on above: Order Comment: Specimen Type: BLOOD SPEC IMENOrdering Facility: [facility] Address: [address] [place] [address] Performed By: #### T SCR ####CC MAIN BLOOD BANKCLIA [id number] [address] Start: 11-10-2021 Antibody screen MICHEAL GUTIÉRREZ Comment on above: Order Comment: Specimen Type: BLOOD SPEC IMENOrdering Facility: [facility] Address: [address] [place] [address] Performed By: #### T SCR ####CC MAIN BLOOD BANKCLIA [id number] [address] Start: 11-10-2021 History of percutaneous transluminal coronary angioplasty History of PTCA Idris Hawk MD Work Phone: Start: 11-04-2021 Echocardiography Micheal M Hoy Work Phone: Start: 06-13-2019 Total colonoscopy Micheal Jennings Hoy Work Phone: Cardiac catheterization Igor las M Hoy Work Phone: Cataract surgery Micheal Jennings H oy Work Phone: Endoscopic placement of gastrostomy tube Micheal Jennings Hoy Work Phone: Epiglottidectomy Micheal Jennings H oy Work Phone: Esophagogastroduodenoscopy D oumonias Dick Hoy Work Phone: Excision of basal cell carcinoma Micheal M Hoy Work Phone: History of percutane ous transluminal coronary angioplasty History of PTCA Micheal Jennings Hoy Work Phone: Intraoperative trans luminal femoral-popliteal angioplasty Micheal Jennings Hoy Work Phone: Surgical procedure on thorax Micheal Jennings Hoy Work Phone: Urinary catheter placement D oumonias Dick Hoy Work Phone: Plan of Treatment Date Care Activity Detail Author Start: 02-03-2025 DIABETES SCREEN DIABETES SCREEN [facility] Start: 11-14-2024 DIABETES SCREEN DIABETES SCREEN [facility] Start: 08-05-2023 FUV, Provider: Lauro Collins, Status: Pen, Time: 11:10 AM FUV, Provider: Lauro Collins, Status: Pen, Time: 11:[address] [facility] DO Work Phone: Start: 01-22-2023 Influenza vaccination INFLUENZA (#1) [facility] Start: 01-05-2023 FUV, Provider: Lauro Collins, Status: Pen, Time: 2:50 PM FUV, Provider: Lauro Collins, Status: Pen, Time: 2:[address] [facility] DO Work Phone: Start: 12-31-2022 ANNUAL PCP TEAM OYSTER GRADER CRISTY DISEASE VISIT ANNUAL PCP TEAM CHRONIC DISEASE VISIT [facility] Start: 11-26-2022 Blood chemistry [facility] Start: 11-26-2022 [facility] Start: 11-25-2022 End: 11-25-2022 [facility] Start: 11-25-2022 Physical therapy procedure [facility] Start: 11-25-2022 Referral to embedded software programmer [facility] Start: 11-25-2022 Referral to occupational therapist [facility] Start: 11-25-2022 Hospital admission [facility] Start: 11-25-2022 Bacteria identified in Blood by Culture [facility] Start: 08-04-2022 FUV, Provider: Lauro Collins, Status: Pen, Time: 10:30 AM FUV, Provider: Lauro Collins, Status: Pen, Time: 10:30 AM -[facility] DO Work Phone: Start: 05-24-2022 ADVANCE DIRECTIVE DISCUSSION ADVANCE DIRECTIVE DISCUSSION [facility] Start: 05-24-2022 DEPRESSION ASSESSMENT DEPRESSION ASS ESSMENT [facility] Start: 03-12-2022 FUV, Provider: Lauro Collins, Status: Pen, Time: 11:40 AM FUV, Provider: Lauro Collins, Status: Pen, Time: 11:40 AM -[facility] DO Work Phone: Start: 03-11-2022 FUV, Provider: Lauro Collins, Status: Pen, Time: 10:40 AM FUV, Provider: Lauro Collins, Status: Pen, Time: 10:40 AM -[facility] DO Work Phone: Start: 01-27-2022 FUV, Provider: Rochelle Herrmann, Status: Pen, Time: 3:30 PM FUV, Provider: Rochelle Herrmann, Status: Pen, Time: 3:30 PM -[facility] DO Work Phone: Start: 01-22-2022 Influenza vaccination INFLUENZA (#1) [facility] Start: 12-04-2021 End: 02-03-2022 Bacteria identified in Urine by Culture URINE CULTURE Microbiology Routine Cloudy urine Expected: 12/04/2021, Expires: 02/03/2022 [facility] Work Phone: Comment on above: Expected: 12/04/2021 , Expires: 02/03/2022 Start: 11-04-2021 PVR, Provider: KIMU MARIKA [facility] 01,[id number], Status: Pen, Time: 10:45 AM PVR, Provider: HERIBERTO [facility] 01,[id number], Status: Pen, Time: 10:45 AM [facility] Work Phone: Start: 11-04-2021 ECHO, Provider: HERIBERTO [facility] 01,[id number], Status: Pen, Time: 9:45 AM ECHO, Provider: HERIBERTO [facility] 01,[id number], Status: Pen, Time: 9:45 AM [facility] Work Phone: Start: 10-08-2021 PVR, Provider: KIMAndrés MARIKA [facility] 01,[id number], Status: Pen, Time: 10:45 AM PVR, Provider: HERIBERTO [facility] 01,[id number], Status: Pen, Time: 10:45 AM [facility] DO Work Phone: Start: 10-08-2021 ECHO, Provider: HERIBERTO [facility] 01,[id number], Status: Pen, Time: 9:45 AM ECHO, Provider: HERIBERTO [facility] 01,[id number], Status: Pen, Time: 9:45 AM [facility] DO Work Phone: Start: 07-30-2021 COVID-19 VACCINE (4 - Booster for Moderna series) COVID-19 VACCINE (4 - Booster for Moderna series) [facility] Start: 05-27-2021 COVID-19 VACCINE (4 - Booster for Moderna series) COVID-19 VACCINE (4 - Booster for Moderna series) [facility] Start: 05-27-2021 COVID-19 VACCINE (4 - Moderna series) COVID-19 VACCINE (4 - Moderna series) [facility] Start: 05-24-2021 ADVANCE DIRECTIVE DISCUSSION ADVANCE DIRECTIVE DISCUSSION [facility] Start: 05-24-2021 DEPRESSION ASSESSMENT DEPRESSION ASS ESSMENT [facility] Start: 2007 PNEUMOCOCCAL: 65+ (1 - PCV) PNEUMOCOCCAL: 65+ (1 - PCV) [facility] Start: 01-24-1992 SHINGRIX VACCINE (1 of 2) SHINGRIX VACCINE (1 of 2) [facility] Start: 1961 Urine microalbumin profile DTAP,TDAP,TD (1 - Tdap) [facility] Start: 01-24-1960 ANNUAL PCP TEAM OY[employer] GRADER CRISTY DISEASE VISIT ANNUAL PCP TEAM CHRONIC DISEASE VISIT [facility] Start: 01-24-1960 Hepatitis B surface antibody level LDL CHOLESTEROL [facility] Start: 1954 Adult depression screening assessment DEPRESSION SCREENING [facility] [facility] Start: 01-24-1946 PNEUMOCOCCAL: 65+ (1 - PCV) PNEUMOCOCCAL: 65+ (1 - PCV) [facility] End: 12-27-2022 Ct abdomen w/o & w/contrast material CT KIDNEY WO/W IVCON Radiology Routine Renal lesion 1 Occurrences starting 11/27/2021 until 12/27/2022 [facility] Work Phone: Comment on above: 1 Occurrences starti ng 11/27/2021 until 12/27/2022 End: 01-03-2023 Mri abdomen w/o & w/contrast material MRI KIDNEY WO/W IVCON Radiology Routine Other specified disorders of kidney and ureter 1 Occurrences starting 12/04/2021 until 01/03/2023 [facility] Work Phone: Comment on above: 1 Occurrences starti ng 12/04/2021 until 01/03/2023 URINALYSIS, REFLEX MICROSCOPIC URINALYSIS, REFLEX MICROSCOPIC Lab Routine Screening for genitourinary condition Ordered: 11/27/2021 [facility] Work Phone: Comment on above: Ordered: 11/27/2021 URINALYSIS, REFLEX MICROSCOPIC URINALYSIS, REFLEX MICROSCOPIC Lab Routine Screening for genitourinary condition Ordered: 12/03/2021 [facility] Work Phone: Comment on above: Ordered: 12/03/2021 [facility] Immunizations Immunization Date Immunization Notes Care Provider Reji prieto 03-05-2022 influenza, high dose seasonal, preservative-free Micheal M Hoy Work Phone: [facility] 250 DO Work Phone: Comment on above: Series: 04-01-2021 Moderna COVID-19 Vac cine 100 MCG/0.5ML Intramuscular Suspension Micheal M Hoy Work Phone: [facility] Work Phone: 03-13-2021 influenza, injectabl e, quadrivalent, preservative free Micheal M Hoy Work Phone: [facility] 250 DO Work Phone: Comment on above: Series: 02-17-2021 Seasonal trivalent influenza vaccine, adjuvanted, preservative free Micheal M Hoy Work Phone: [facility] Work Phone: 08-22-2020 pneumococcal polysaccharide vaccine, 23 valent Micheal M Hoy Work Phone: [facility] 250 DO Work Phone: Comment on above: Series: 07-19-2020 Moderna COVID-19 Vac cine 100 MCG/0.5ML Intramuscular Suspension Micheal M Hoy Work Phone: [facility] Work Phone: 06-21-2020 Moderna COVID-19 Vac cine 100 MCG/0.5ML Intramuscular Suspension Micheal M Hoy Work Phone: [facility] Work Phone: 03-06-2020 influenza, high dose seasonal, preservative-free Micheal M Hoy Work Phone: [facility] Work Phone: 02-23-2020 Seasonal trivalent influenza vaccine, adjuvanted, preservative free Micheal M Hoy Work Phone: [facility] Work Phone: 04-06-2018 influenza, injectabl e, quadrivalent, preservative free Micheal M Torsteny Work Phone: [facility] Work Phone: 02-28-2018 tetanus and diphther ia toxoids, adsorbed, preservative free, for adult use (5 Lf of tetanus toxoid and 2 Lf of diphtheria toxoid) Micheal Sarmientoy Work Phone: [facility] Work Phone: 07-12-2017 influenza, injectabl e, quadrivalent, preservative free Micheal M Hoy Work Phone: [facility] Work Phone: 04-07-2017 zoster vaccine, live Micheal Jennings Hobraydon Work Phone: [facility] Work Phone: 02-15-2017 influenza, high dose seasonal, preservative-free Micheal M Torsteny Work Phone: [facility] Work Phone: 02-15-2017 pneumococcal conjuga te vaccine, 13 valent Micheal M Torsteny Work Phone: [facility] Work Phone: 05-24-2016 pneumococcal conjuga te vaccine, 13 valent Micheal M Hoy Work Phone: [facility] Work Phone: 03-04-2016 influenza, injectabl e, quadrivalent, preservative free Micheal M Hoy Work Phone: [facility] Work Phone: 07-29-2015 influenza, injectabl e, quadrivalent, preservative free Micheal M Hoy Work Phone: [facility] Work Phone: 03-06-2015 pneumococcal polysaccharide vaccine, 23 valent Micheal M Hoy Work Phone: [facility] Work Phone: 01-03-2015 tetanus toxoid, redu mark diphtheria toxoid, and acellular pertussis vaccine, adsorbed Micheal M Marla Work Phone: [facility] Work Phone: 05-09-2009 novel influenza-H1N1 -09, preservative-free, injectable Micheal Gutiérrez Work Phone: [facility] Work Phone: Payers Date Payer Category Payer Medicare [id number] 2021 Self-pay [id number] 2021 [place] [id number] 2021-Present [phone] [address] [place] [address] Medicaid [id number] 2021 [place] [id number] 2021-Present [phone] [address] [place] [address] Medicaid [id number] 2020 Unknown 2020 Unknown ANTHEM BLUE CROS S AND BLUE SHIELD ANTHEM MEDIBLUE HMO [id number] 2020-Present [phone] [address] [place] [address] O [id number]. [id number] 1959 Medicaid [id number] 1959 Medicare [id number] 1959 Self-pay [id number] 1942 Unknown [id number] 2.16.840.1.167413.3.579.2.647 1942 Unknown [id number] 2.16.840.1.263880.3.579.2.593 1942 Unknown [id number] 2.16.840.1.068278.3.579.2.593 1942 Unknown [id number] 2.16.840.1.830812.3.579.2.593 1942 Unknown [id number] 2.16.840.1.862679.3.579.2.593 1942 Unknown [id number] 2.16.840.1.151761.3.579.2.593 1942 Unknown [id number] 2.16.840.1.804479.3.579.2.593 1942 Unknown [id number] 2.16.840.1.291243.3.579.2.593 1942 Unknown [id number] 2.16.840.1.081270.3.579.2.593 1942 Unknown [id number] 2.16.840.1.786037.3.579.2.593 1942 Unknown [id number] 2.16.840.1.843758.3.579.2.593 1942 Unknown [id number] 2.16.840.1.253361.3.579.2.593 1942 Unknown [id number] 2.16.840.1.485908.3.579.2.593 1942 Unknown [id number] 2.16.840.1.474597.3.579.2.593 1942 Unknown [id number] 2.16.840.1.315279.3.579.2.593 1942 Unknown [id number] 2.16.840.1.457191.3.579.2.593 1942 Unknown [id number] 2.16.840.1.205366.3.579.2.593 1942 Unknown [id number] 2.16.840.1.079891.3.579.2.593 1942 Unknown [id number] 2.16.840.1.437410.3.579.2.593 1942 Unknown [id number] 2.16.840.1.225408.3.579.2.593 1942 Unknown [id number] 2.16.840.1.329809.3.579.2.593 1942 Unknown [id number] 2.16.840.1.569413.3.579.2.593 1942 Unknown [id number] 2.16.840.1.456342.3.579.2.593 1942 Unknown [id number] 2.16.840.1.105078.3.579.2.593 1942 Unknown [id number] 2.16.840.1.539197.3.579.2.593 1942 Unknown [id number] 2.16.840.1.908101.3.579.2.593 1942 Unknown [id number] 2.16.840.1.526182.3.579.2.356 1942 Unknown [id number] 2.16.840.1.651746.3.579.2.356 1942 Unknown [id number] 2.16.840.1.792994.3.579.2.356 1942 Unknown [id number] 2.16.840.1.837333.3.579.2.356 1942 Unknown [id number] 2.16.840.1.398904.3.579.2.356 1942 Unknown [id number] 2.16.840.1.052545.3.579.2.356 1942 Unknown [id number] 2.16.840.1.154822.3.579.2.356 Medicare Medicare [id number] Medicare Medicare Outpatient [id number] Medicare [id number] Unknown [id number] 2.16.840.1.974998.3.579.2.531 Unknown [id number] 2.16.840.1.310898.3.579.2.531 Unknown [id number] 2.16.840.1.489502.3.579.2.531 Social History Date Type Detail Facility Start: 11-10-2021 End: 11-27-2021 No illicit drug use No illicit drug use [facility] [employer] 250 DO Work Phone: Comment on above: some tea; 5 cigarettes; 1 ppd; Start: 07-07-2021 [facility] Start: 1940 Sex Assigned At Male [facility] Start: 11-01-2021 End: 02-02-2022 Exposure to SARS-CoV-2 (event) Not sure [facility] Start: 11-27-2021 End: 12-31-2021 Tobacco smoking status FLIS Smokes tobacco daily [facility] Start: 11-27-2021 End: 12-31-2021 Tobacco use and exposure Former smokeless tobacco user [facility] Start: 11-25-2022 [facility] Start: 11-10-2021 End: 11-27-2021 Tobacco use panel [facility] National Score (1-10 0), lower number is lower risk 83 [facility] Start: 11-16-2021 Gender identity Identifies as male gender (finding) [facility] Start: 11-16-2021 Sexual orientation Heterosexual (ángel colmenares) [facility] Medical Equipment Procedure Code Equipment Code Equipment Origin al Text Equipment Identifier Dates use 1 TEST STRIP to TEST BLOOD SUGAR twice a day Start: 12-13-2021 Comment on above: use 1 TEST STRIP to TEST BLOOD SUGAR twice a day Drug-eluting coronary artery stent, non-bioabsorbable- polymer-coated [id number] FDA Start: 07-08-2021 Kit Endovive 20f r Standard [place] Silicone Peg Pull Method Drea - [id number] Start: 02-02-2022 Clinical Notes 11-10-2021 to 07-28-2022 Hansel Otero PA-C - 07/10/2022 2:14 PM ESTTelephone Encounter - Alissa Lackey SHUTTLE THREADER.NADER - 02/02/2022 2:58 PM EDTTelephone Encounter - Thu Lancaster RN - 01/27/2022 8:21 PM EDT Note Date & Type Note Facility 07-28-2022 Note [facility] 07-28-2022 Note [facility] 07-16-2022 Note [facility] 07-16-2022 Note [facility] 07-10-2022 Note [facility] 07-10-2022 History of Presen t illness Narrative HISTORY AND PHYSICAL EXAMINATION SERVICE DATE: 07/10/2022 SERVICE TIME: PRIMARY CARE PHYSICIAN: Micheal Gutiérrez MD, MD Subjective CHIEF COMPLAINT: g tube evaluation HPI: This is a 82 year old male who presents with via virtual for evaluation of G tube site and tube. Patient reports G tube to se stained from normal gastric contents, also the disc of the tube has migrated backward away from the skin. Denies induration, erythemia at tube site minimal drainage FUNCTIONAL STATUS: Partially dependent PAST MEDICAL HISTORY Diagnosis Date CHF (congestive heart failure) (HCC) COPD (chronic obstructive pulmonary disease) (HCC) Hyperlipidemia Ischemic cardiomyopathy Myocardial infarction (HCC) PAD (peripheral artery disease) (HCC) PAST SURGICAL HISTORY Procedure Laterality Date MIDLINE INSERTION/CONSULT 11/15/2021 FAMILY HISTORY Problem Relation Age of Onset Alzheimer's Disease Mother other (ALS) Sister Social History Tobacco Use Smoking status: Every Day Smokeless tobacco: Former (Not in a hospital admission) ALLERGIES Allergen Reactions Ticagrelor Shortness of Breath COMPLETE REVIEW OF SYSTEMS: As per HPI Objective PHYSICAL EXAM: Physical Exam Performed: G tube with enteric drainage present in tube, disc migrated back away from skin There were no vitals taken for this visit. DATA: Diagnostic tests reviewed for today's visit: None Assessment/Plan 1) reasruance provided to patient regarding tube staining 2) education regarding mold or black appearing spots in tube provided 3) walked patients through tightening of bumper SIGNATURE: Hansel Otero PA-C PATIENT NAME: Franki Hernandez DATE: July 10, 2022 TIME: 2:14 PM documented in this encounter [facility] 02-20-2022 Note [facility] 02-03-2022 Note [facility] 02-03-2022 Note HNO ID: [id number] Author: Elva Farias RN Service: Nursing Author Type: Registered Nurse Type: Nursing Progress Note Filed: 02/03/2022 6:30 AM Note Text: Patient refused turn and ambulation and was educated on benefits. [facility] 02-03-2022 Note [facility] 02-02-2022 Note [facility] 02-02-2022 Miscellaneous Notes Talked with Farideh at [facility]. She reports that daughter had inquired about refilling pantoprazole suspension; currently here for surgery with Dr. Guan. Explained that I had ordered a short term supply of pantoprazole suspension from our pharmacy when I saw Franki Hernandez for Berry removal because their local pharmacy did not have it available. When I got the refill request last week, I had forwarded it to Dr. Guan and Dr. Mcginnis to confirm whether they wanted to continue it via his new feeding tube. They have not responded. Farideh will instruct daughter to discuss with Dr. Guan. Alissa Lackey APRN.CNP documented in this encounter [facility] 01-27-2022 Miscellaneous Notes BMI SPECIALTY CARE COORDINATION TELEPHONE ENCOUNTER Pt was seen in clinic a temporary FT access was placed anticipating gastrostomy tube WedJan 28 Reviewed medication and pre op list in clinic but pt did not stop his blood thinner as instructed. Pt is rescheduled for WednesdayFeb 02 and request sent to scheduling. Surgeon aware, Pre op instructions and meds reviewed once more and she is aware to stop eliquis 48hrs prior starting Wednesday am. NPO after midnight. documented in this encounter [facility] 2022 Note [facility] 2022 History of Presen t illness Narrative HISTORY AND PHYSICAL EXAMINATION SERVICE DATE: 2022 SERVICE TIME: 2:35PM PRIMARY CARE PHYSICIAN: Micheal Gutiérrez MD, MD Subjective CHIEF COMPLAINT: Corpak malfunction HPI: This is a 82 year old male who presents with Corpak malfunction. Will need a Corpak replacement, and a definitve enteral access next week. (Surgical gastrostomy more likely) FUNCTIONAL STATUS: Partially dependent PAST MEDICAL HISTORY Diagnosis Date CHF (congestive heart failure) (HCC) COPD (chronic obstructive pulmonary disease) (HCC) Hyperlipidemia Ischemic cardiomyopathy Myocardial infarction (HCC) PAD (peripheral artery disease) (HCC) PAST SURGICAL HISTORY Procedure Laterality Date MIDLINE INSERTION/CONSULT 11/15/2021 FAMILY HISTORY Problem Relation Age of Onset Alzheimer's Disease Mother other (ALS) Sister Social History Tobacco Use Smoking status: Every Day Smokeless tobacco: Former (Not in a hospital admission) ALLERGIES Allergen Reactions Ticagrelor Shortness of Breath COMPLETE REVIEW OF SYSTEMS: PAIN ASSESSMENT: Negative for pain, history of chronic pain, or current treatment for a chronic pain condition. GENERAL: No weight loss, malaise or fevers HEENT: Negative for frequent or significant headaches, No changes in hearing or vision, no nose bleeds or other nasal problems NECK: Negative for lumps, goiter, pain and significant neck swelling RESPIRATORY: Negative for cough, hemoptysis, wheezing, COPD, dyspnea or shortness of breath CARDIOVASCULAR: Negative for chest pain, leg swelling, hypertension, CHF or palpitations GI: No nausea, vomiting, or diarrhea : No history of dysuria, frequency or incontinence MUSCULOSKELETAL: Negative for joint pain or swelling, back pain or muscle pain SKIN: Negative for lesions, rash, and itching PSYCH: Negative for sleep disturbance, mood disorder and recent psychosocial stressors HEMATOLOGY/LYMPHOLOGY: Negative for prolonged bleeding, bruising easily or swollen nodes ENDOCRINE: Negative for cold or heat intolerance, polyuria, polydipsia and goiter NEURO: No history of headaches, syncope, paralysis, seizures or tremors Objective PHYSICAL EXAM: Physical Exam Performed: GENERAL: Alert, no distress, cooperative SKIN: Skin color, texture, turgor normal. No rashes or lesions. OROPHARYNX: Lips, mucosa, and tongue normal. Teeth and gums normal. Oropharynx normal. NECK: No jugulovenous distention, No carotid bruits, Carotid pulse normal contour, Supple LUNGS: Lungs clear to auscultation, Good diaphragmatic excursion CARDIAC: Normal S1 and S2; no rubs, murmurs, or gallops ABDOMEN: Abdomen soft, non-tender, BS normal, No masses or organomegaly BP 124/76 Pulse 78 Ht 5' 7.25 (1.71m) Wt 137 lb (62.1kg) BMI 21.30 kg/(m^2). DATA: Diagnostic tests reviewed for today's visit: No new imaging reviewed Assessment/Plan This is a 82 year old male who presents with Corpak malfunction. Will need a Corpak replacement, and a definitve enteral access next week. (Surgical gastrostomy more likely) IV fluids Ok for clears Corpak placement tomorrow SIGNATURE: Billie Guan MD PATIENT NAME: Franki Hernandez DATE: 2022 TIME: 2:56 PM PAGER/CONTACT #: [phone] documented in this encounter [facility] 01-12-2022 Miscellaneous Notes Replied to more recent message regarding MBS. Alissa Lackey APRN.CNP documented in this encounter [facility] 12-31-2021 Note [facility] 12-31-2021 Nurse Note Franki Hernandez is a 81 year old male here today for visit in the Public Walk-In Clinic. Pt has been identified by name and date of for verification. Allergies have been reviewed/verified and include the following: Ticagrelor. Medication reviewed/updated by provider. Pharmacy verified Yes Has the patient had any recent labs: No Is the patient active on MyChart Yes What is the patients preferred method of communication: MyChart AMB ROOMING INTAKE FLOWSHEET DATA Risk Screening Do you have concerns about personal safety or safety in the home?: No Naveed Nicholson LPN documented in this encounter [facility] 12-31-2021 History of Presen t illness Narrative Images from the original note were not included. [facility] Internal Medicine [facility] Outpatient Visit Date: December 31, 2021 CC: Patient presents with: Physiological Problem - GI HPI:Franki Hernandez is a 81 year old male who presents today to the internal medicine department 0 walk in clinic for a complains of list above. 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 Hx angiogram with intervention at [facility] in [place] with bilateral iliac stents and R EIA stent in 2009 (reports not currently available). PCP: Micheal Gutiérrez MD, MD Last visit: Patient [place] from [facility]. He is here with his daughter who provides most of patient's history. Patient has difficulty swallowing , has h/o throat cancer ~ 25 years. His daughter reports 5 years ago, he had a partial resection of epiglottis. 07/06/2021 - he had a massive CA, intubation was difficulty and his throat muscle was stretching. He was on thick liquid and got aspiration PNA, he then got admitted and hospitalization. They decided to put him on NG tube. He started loosing weights ~ 60 lbs. They decided to give him a peg tube , but it was accidentally placed on his colon at [facility] in [place]. States he almost . 11/09/2021- they drove to the clinic and got admitted 11/09 -11/20 . States [facility] placed NG tube in and removed peg tube in ABD. He was supposed to keep the NG tube in 2- 4 weeks, but it has not gotten removed. States he is supposed to have 1400 mL through the tube. However, the daughter who solely care for him was away, the other family members cared for the patient. She suspected they might have not flushed to feed the patient properly. The tube now is clogged since a couple of weeks ago. 5 hours ago, she tried to give the patient medications via NG tube but she was unable to flush the water in. He tried to sip a small water. States he saw the speech therapist at [facility] and was told that he could swallow. Patient today reports having cough, wheezing, lots of mucus, SOB with walking. Daughter reports the patient has massive drainage and his nose has been running non stop. States the sudafed did not help States they are trying to see someone for his NG tube He has COPD and smoked for some years. Denies hemoptysis. Denies fever, chills, sore throat, body ache, H/A, loss of taste and smell, N/V/D. Review of Systems: See HPI RESPIRATORY: See HPI CARDIOVASCULAR: Negative for chest pain, leg swelling, hypertension, CHF or palpitations The remainder of the review of systems is negative. Hx: PAST MEDICAL HISTORY Diagnosis Date CHF (congestive heart failure) (HCC) COPD (chronic obstructive pulmonary disease) (HCC) Hyperlipidemia Ischemic cardiomyopathy Myocardial infarction (HCC) PAD (peripheral artery disease) ([facility]) Social History Tobacco Use Smoking status: Every Day Smokeless tobacco: Former ACTIVE PROBLEM LIST Diarrhea Severe Protein-Calorie Malnutrition (Hcc) History of CA (Myocardial Infarction) History of Ptca History of Cardiac Arrest Coronary Artery Disease Involving [place] Coronary Artery of [place] Heart Without Angina Pectoris Encounter for Preoperative Assessment for Noncoronary Cardiac Surgery Cardiomyopathy, Ischemic New Onset A-Fib (Hcc) Hypokalemia Pharyngeal Dysphagia Refeeding Syndrome Hypothyroidism Bradycardia Urinary Retention PAST SURGICAL HISTORY Procedure Laterality Date MIDLINE INSERTION/CONSULT 11/15/2021 FAMILY HISTORY Problem Relation Age of Onset Alzheimer's Disease Mother other (ALS) Sister Physical Examination: BP 138/85 (BP Site: Right Arm, BP Position: Sitting, BP Cuff Size: Regular Adult) Pulse 67 Temp 36.9 C (98.4 F) (Oral) SpO2 98% General appearance: Well appearing, alert, in no acute distress, sitting on the wheelchair. Thin habitat Skin: Skin color, texture, turgor normal, no suspicious rashes or lesions Head: Normocephalic, no masses, lesions, tenderness or abnormalities Eyes: Anicteric sclera. Pupils are equally round and reactive to light. Extraocular movements are intact. Ears: External ears normal Nose/Sinuses: Positive findings: mucosa erythematous and swollen, no sinus tenderness. NG tube present. Oropharynx: Dry lips Neck: Supple, no adenopathy; thyroid symmetric, normal size, no bruits Back: negative CVA tenderness. Lungs: Positive findings: diminished lungs sound Heart: RRR without murmur, gallop, or rubs. No ectopy Abdomen: Abdomen soft, non-tender. Extremities: No deformities, edema, skin discoloration, clubbing or cyanosis. Good capillary refill. Musculoskeletal: No joint swelling, deformity, or tenderness Peripheral pulses: Pulses palpable Neuro: Patient is sitting on the wheelchair. Sensation grossly intact., Oriented X 3 Prior Imaging or Laboratory studies reviewed ASSESSMENT/PLAN: 1. Feeding tube blocked, initial encounter - ICD9: 996.79, ICD10: T85.598A (primary diagnosis) 2. SOB (shortness of breath) on exertion - ICD9: 786.05, ICD10: R06.02 3. Chronic cough - ICD9: 786.2, ICD10: R05.3 The patient is new to us, comorbidity. H/o aspiration PNA which concerning with SOB and cough, NG tube in place but clogged and unable to flush. Recommended the patient to go to the ED for further evaluation and treatment. The patient and daughter agreed with the place. - Called and reported to the ED Charge nurse - NURSING INSTRUCTION ORDER/NON MED RELATED- called transportation to take the patient to the ED - Patient was transported to the ED with the transporting team on the wheelchair. - Follow up with PCP and Gen surg Yadira Frazier APRN.INFORMATION SERVICES CONSULTANT I spent a total of 35 minutes on the date of the service which included preparing to see the patient, [id number] patient care, completing clinical documentation, obtaining and/or reviewing separately obtained history, performing a medically appropriate examination, counseling and educating the patient/family/caregiver, and care coordination (not separately reported). documented in this encounter [facility] 12-31-2021 History and physical note Images from the original note were not included. Heart , V[facility] OF [facility]GERY OUTPATIENT VISIT DATE December 30, 2021 OUTPATIENT VISIT TYPE CONSULTATION SERVICE DATE: 12/30/2021 SERVICE TIME: 9:02 AM PRIMARY CARE PHYSICIAN: Micheal Gutiérrez MD, MD REFERRING PROVIDER: DUNG Consult requested for an opinion regarding the evaluation and treatment of the above. My final impression and recommendations will be communicated back to the requesting physician by way of the shared medical record or letter via US mail. CHIEF COMPLAINT: Bilateral lower extremity pain HISTORY OF PRESENT ILLNESS: Vascular consultation at the request of Dr. Lofton. A copy of this consultation note will be provided to the requesting physician by way of shared Medical record or letter to requesting physician via US mail. Mr. Hernandez is a 81 year old male who is seen today for lower extremity pain. The patient is a current smoker ( 66 ppy). 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 Hx angiogram with intervention at [facility] in [place] with bilateral iliac stents and R EIA stent in 2009 (reports not currently available). He presents today with bilateral thigh pain. It is constant at rest but associated with ambulation. He reports sensitivity and pain to light touch of this area. Currently on Plavix and Eliquis, PAST MEDICAL HISTORY Diagnosis Date CHF (congestive heart failure) (HCC) COPD (chronic obstructive pulmonary disease) (HCC) Hyperlipidemia Ischemic cardiomyopathy Myocardial infarction (HCC) PAD (peripheral artery disease) (HCC) PAST SURGICAL HISTORY Procedure Laterality Date MIDLINE INSERTION/CONSULT 11/15/2021 SOCIAL HISTORY: Social History Tobacco Use Smoking status: Every Day Smokeless tobacco: Former FAMILY HISTORY Problem Relation Age of Onset Alzheimer's Disease Mother other (ALS) Sister MEDICATIONS: pantoprazole oral liquid 2 mg/mL (CPD) Take 20 mL by mouth DAILY (6 AM). apixaban (ELIQUIS) 5 mg tab(s) Take 1 tablet by mouth twice daily. nutritional supplements (NUTREN 1.5) 0.07 gram-1.5 kcal/mL liqd 1,430 mL/day by FEEDING TUBE route continuous. Enteral Nutrition Tube Feeding Formula Type: Nutren 1.5 or equivalent Goal Rate (mL/hr x hours): 65 ml/hr x 22 hrs, 1430 ml formula provides 2145 kcals, 97 g, and 1093 ml free water (hold TF 1 hr before and after synthroid administration) Water Flush Volume (mL x frequency: 90 ml Q4H Recommended Enteral Access: Small bore feeding tube (Nasogastric- Corpak) Cans: 4.5 per day albuterol (PROVENTIL) 2.5 mg /3 mL (0.083 %) nebulizer solution Inhale 2.5 mg as instructed every 6 hours as needed. clopidogrel (PLAVIX) 75 mg tablet Take 75 mg by mouth once daily. ENTRESTO 24-26 mg tablet Take 1 tablet by mouth twice daily. finasteride (PROSCAR) 5 mg tablet Take 5 mg by mouth once daily. budesonide (PULMICORT) 0.25 mg/2 mL nebulizer solution Use 0.25 mg via nebulizer twice daily. levothyroxine (SYNTHROID) 75 mcg tablet Take 75 mcg by mouth daily before breakfast. ferrous sulfate 220 mg (44 mg iron)/5 mL elixir Take 220 mg by mouth once daily. HYDROcodone-Acetaminophen (NORCO) 7.5-325 mg per tablet Take 1 tablet by mouth every 4 hours as needed for pain. HUMALOG KWIKPEN INSULIN 100 unit/mL INJECT SUBCUTANEOUSLY WITH MEALS 4 UNITS IF BS LESS THAN 120, 8 UNITS IF BS GREATER THAN 120 phosphorus (PHOSPHA 250 NEUTRAL) 250 mg tablet Take 1 tablet by mouth once daily. pramipexole (MIRAPEX) 0.5 mg tablet Take 0.5 mg by mouth as needed. ALLERGIES: ALLERGIES Allergen Reactions Ticagrelor Shortness of Breath REVIEW OF SYSTEM: Constitutional: Weight loss - No HEENT: Negative for frequent or significant headaches Respiratory: Positive for chronic cough and shortness of breath limiting daily activity Cardiovascular: Negative for chest pain, leg swelling or palpitations Gatrointestinal: Negative for abdominal discomfort, blood in stools or black stools or change in bowel habits Genitourinary: No history of dysuria, frequency, or incontinence Musculoskeletal: Negative for joint pain or swelling, back pain or muscle pain Endocrine: Negative for cold or heat intolerance, polyuria, polydipsia and goiter Hematology/Lymphatic: Negative for prolonged bleeding, bruising easily or swollen nodes Neurologic: No history or headaches, syncope, paralysis, seizures or tremors Integumentary: Negative for lesions, rash, and itching. PHYSICAL EXAM: VITALS: BP 104/57 Pulse 93 Temp (Src) 97.5 (Oral) Resp 24 Ht 5' 7.25 (1.71m) Wt 129 lb 14.4 oz (58.9kg) SpO2 99% BMI 20.20 kg/(m^2). General: Alert and oriented, Malnourished Integumentary: Normal color, no rash, no lesions. HEENT: EOM, pupils equal, round and reactive. Cardiovascular: irregular pulse Lungs: Wheezes Abdomen: Soft, non-tender, no rigidity. Extremities: slight purple discoloration of lower extremities Neurological: Normal cognition and motor skills. Vascular: Pulses: Carotid Pulse Right: Normal Left: Normal Brachial Pulse Right: Normal Left: Normal Radial Pulse Right: Normal Left: Normal Femoral Pulse Right: Normal Left: Normal Popliteal Pulse Right: Normal Left: Dopplerable Only Posterior Tibial Right: Dopplerable Only Left: Dopplerable Only Dorsalis Pedal Right: Weak Left: Dopplerable Only Diagnostic tests reviewed for today's visit: Most recent imaging CT AP W IVCON (11/10/21) Vasculature: Extensive aortic and iliac vascular calcifications. Bilateral common iliac and right external iliac artery stents which are patent. PVR 11/04/21 ROHITH R 0.67, L 0.53 IMPRESSION: Mr. Hernandez is a 81 year old male with hx of COPD, recent CA complicated by arrest and transverse colon injury during PEG placement currently on tube feeds via NG tube, presenting with bilateral thigh pain. Symptoms are more consistent with neurogenic pain rather than ischemic pain, and this is supported by ROHITH's and vascular exam. He would also not be a good candidate for surgery/intervention at this time. PLAN and RECOMMENDATIONS: -No surgical intervention indicated at this time -Recommend Neurology workup for thigh pain -Should follow up with a surgeon for management of -NG/PO feeding -Follow up in 1 year Medical Decision Making: Medical Decision Making Level: 1 - N/A SIGNATURE: Idris Hawk MD PATIENT NAME: Franki Hernandez DATE: December 30, 2021 TIME: 9:02 AM [facility] STAFF PHYSICIAN NOTE OF PERSONAL INVOLVEMENT IN CARE Patient is seen in consultation at the request of the above noted physician. Based on my evaluation he does not require intervention for pad. PLAN DISCUSSED WITH: pt See problem list I have reviewed the documentation obtained and documented by the Resident. I have personally performed a face to face assessment of the patient and have personally participated on the connor components of the history, exam and medical decision making and have reviewed and updated the problem list as appropriate. I have personally performed a face to face assessment of the patient and have personally participated in the connor components. I have discussed the case and management of the patient's care. STAFF PHYSICIAN: Idris Hawk MD DATE of SERVICE: 12/31/2021 TIME of SERVICE: 12:33 PM documented in this encounter [facility] 12-13-2021 Miscellaneous Notes Urology Telephone Note I spoke with pt over the phone today. I explained that her pharmacy does not carry the liquid formation of nitrofurantoin, not does the [facility] in [place]. She reports that she has been able to give him the nitrofurantoin capsules successfully and plans to continue giving it for the rest of the recommended course. Brock Cristina Jr., MD Reconstructive Urology Fellow documented in this encounter [facility] 12-04-2021 Miscellaneous Notes See today's telephone encounter. Alissa Lackey APRN.CNP documented in this encounter [facility] 12-04-2021 Miscellaneous Notes Received prompt call back from daughter. Advised that radiology recommended MRI to further evaluate renal lesion. Instructed her to call [phone] to schedule. Daughter reports that Franki Hernandez cathed after voiding several times, and all PVRs were low (about 45 mL). Advised that they can go ahead and stop ISC. Daughter reports that urine has been cloudy; concerned about infection from having Berry in. Will go to lab at [place] to leave specimen for culture. Daughter reports redness in the poop and is concerned about healing from colon perforation from misplaced gastrostomy tube. Franki Hernandez is having daily BMs but reports a little straining. They called PCP this morning and are working on getting orders for labs recommended in discharge summary and appointment in the next few days. Advised that bright red blood usually suggests bleeding at the very end of the digestive tract. Encouraged stool softener. Encouraged CBC in near future to ensure that red blood cell count is not dropping. No other questions or concerns at this time. Alissa Lackey APRN.NADER Ordered MRI KIDNEY per radiology recommendations to further characterize renal lesion on CT KIDNEY. Left voicemail for daughter, advising that I had seen [address] messages and CT results. Requested call back at [phone]. Alissa Lackey APRN.INFORMATION SERVICES CONSULTANT documented in this encounter [facility] 12-02-2021 Note [facility] 12-02-2021 History of Presen t illness Narrative Radiology Service Progress Note DATE OF SERVICE: December 02, 2021 TIME: 10:41 AM PATIENT IDENTITY VERIFICATION COMPLETED USING TWO (2) STANDARD IDENTIFIERS: Name and Date of confirmed by patient verbally and Name and Date of confirmed by identification band. FALL SCREENING: Has the patient had 2 falls in the last year or 1 fall with injury or currently using an Ambulatory Assistive Device (Walker, Cane, Wheelchair, Crutches, etc.)? No PATIENT GENDER DATA: Male PATIENT RELEVANT IMPLANT DATA REVIEWED: Not Applicable ALLERGIES: Reviewed and unchanged CONTRAST ALLERGY: NO. EXAM: CT -CONTRAST INDUCED NEPHROPATHY RISK FACTORS: Patient age > 60 years CREATININE: Creatinine Date Value Ref Range Status 11/20/2021 1.15 0.73 - 1.22 mg/dL Final 11/20/2021 1.22 0.73 - 1.22 mg/dL Final 11/19/2021 1.22 0.73 - 1.22 mg/dL Final Estimated Glomerular Filtration Rate Date Value Ref Range Status 11/20/2021 65 >=60 mL/min/1.73m Final Comment: Estimated Glomerular Filtration Rate (eGFR) is calculated using the 2020 CKD-EPI creatinine equation. This equation utilizes serum creatinine, sex, and age as parameters. The creatinine assay has traceable calibration to isotope dilution-mass spectrometry. Refer to KDIGO guidelines for clinical interpretation. In patients with unstable renal function, e.g. those with acute kidney injury, the eGFR may not accurately reflect actual GFR. P.O.C.T. RESULTS: POC done: Yes, See Lab Tab December 02, 2021 TREATMENT: N/A PERIPHERAL IV DATA: Ambulatory: A peripheral IV was started in the Right antecubital site with a Angio cath: 20 gauge. RADIOLOGY DEPARTMENT: CT; Exam(s) Completed: Kidney SIGNATURE: RT Trevor(R) PATIENT NAME: Franki Hernandez DATE: December 02, 2021 TIME: 10:41 AM documented in this encounter [facility] 11-27-2021 Note [facility] 11-27-2021 Instructions Alissa Lackey APRN.CNP - 11/27/2021 2:20 PM EDT Please call me at [phone] if you have trouble with catheters or other questions. Please call radiology at [phone] of kidneys. documented in this encounter [facility] 11-27-2021 History of Presen t illness Narrative [facility] NEW PATIENT HISTORY AND PHYSICAL EXAM PATIENT INFO: Franki Hernandez 81 year old REFERRING Roberto.: Dionicio Naqvi 1950 [address] [facility] [id number] = HISTORY: Franki Hernandez is a 81 year old male with history of remote throat cancer s/p epiglottis resection, ACS c/b cardiac arrest s/p PCI 06/2021 (KACIE to RCA), dysphagia s/p PEG (10/07/21), urinary retention s/p Berry, and hypothyroidism. Presented to ER on 11/09/2021 with 1 month history of diarrhea. Gastrostomy tube was found to be malpositioned in transverse colon. Admitted until 11/20/2021. Per discharge summary: Patient and family note history of chronic urinary retention s/p Berry, with plan for further outpatient evaluation by urology. Per scant notes, plan for urodynamic testing - appears not to have been done yet. Franki Hernandez presents today with daughter for hospital follow up. Current Berry has been in since 11/09/2021. Daughter reports that Franki Hernandez has been maintained with Berry since 07/06/2021. Has been following with Dr. Monsalve at [facility]. They briefly discussed trying ISC, but Franki Hernandez was not well enough; ordered monthly Berry changes with home health nurse. They did not want to do any further workup (e.g., cysto) since Franki Hernandez has been on blood thinners. Had been on Proscar and Flomax from 08/05/2021 through about 10/01/2021. Reports that they were stopped during an admission for aspiration pneumonia. Discharged from most recent admission with Proscar and Cardura. Denies any voiding trials since BPH starting meds. Notes that Berry clogs with mucus. Has had it irrigated in hospital. Prior to massive heart attack in 06/2021, Franki Hernandez felt like he was voiding well; denied weak stream, hesitancy, incomplete emptying, or bothersome frequency. [place] 80 [place]. At home with , who has dementia, and home health services. Daughter lives in [place]. 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 Franki Hernandez and are probably going to go to [place] with daughter next week, possibly through the winter. Daughter has questions about renal lesion noted on CT. Also has questions about follow up labs mentioned in discharge summary. Pantoprazole suspension not covered by insurance. Frederick Nielsen tried to dispense pills, but these can't go through tube. Daughter wants to know if [facility] pharmacy can ship pantoprazole to their home. CT ABD/PEL W IVCON (11/10/2021): RESULT: Lower Thorax: Coarse interstitial opacities at the lung bases, likely representing a combination of chronic aspiration and atelectasis. Liver: No masses. Gallbladder/Biliary: Distended gallbladder with layering sludge or small stones. No biliary ductal dilatation. Spleen: Not enlarged. Pancreas: Unremarkable. Adrenals: No nodules Kidneys: Indeterminate 1.7 cm left superior pole lesion (2:38) and 1.0 cm right inferior pole lesion (2:60), measuring above water attenuation. No hydronephrosis. Vasculature: Extensive aortic and iliac vascular calcifications. Bilateral common iliac and right external iliac artery stents which are patent. GI Tract: Gastrostomy tube terminates in the left transverse colon. No wall thickening or evidence of obstruction. Normal appendix. Pelvis: A Berry is seen in the bladder. Mesentery/Peritoneum/Retroperit oneum: No free air or fluid Lymph Nodes: No abdominopelvic lymphadenopathy. Bones and soft tissues: Bilateral femoral head avascular necrosis. Osteopenia and degenerative changes. Small fat-containing left inguinal hernia with focal fluid. Adult Services Librarian (topogram) images: No additional findings. = MEDICATIONS: Current Outpatient Medications Medication Sig apixaban (ELIQUIS) 5 mg tab(s) Take 1 tablet by mouth twice daily. doxazosin (CARDURA) 2 mg tablet Take 1 tablet by mouth once daily. nutritional supplements (NUTREN 1.5) 0.07 gram-1.5 kcal/mL liqd 1,430 mL/day by FEEDING TUBE route continuous. Enteral Nutrition Tube Feeding Formula Type: Nutren 1.5 or equivalent Goal Rate (mL/hr x hours): 65 ml/hr x 22 hrs, 1430 ml formula provides 2145 kcals, 97 g, and 1093 ml free water (hold TF 1 hr before and after synthroid administration) Water Flush Volume (mL x frequency: 90 ml Q4H Recommended Enteral Access: Small bore feeding tube (Nasogastric- Corpak) Cans: 4.5 per day phosphorus (PHOSPHA 250 NEUTRAL) 250 mg tablet Take 1 tablet by mouth once daily. pantoprazole (PROTONIX) 40 mg/20 mL oral liquid Take 20 mL by mouth DAILY (6 AM). albuterol (PROVENTIL) 2.5 mg /3 mL (0.083 %) nebulizer solution Inhale 2.5 mg as instructed every 6 hours as needed. clopidogrel (PLAVIX) 75 mg tablet Take 75 mg by mouth once daily. ENTRESTO 24-26 mg tablet Take 1 tablet by mouth twice daily. finasteride (PROSCAR) 5 mg tablet Take 5 mg by mouth once daily. budesonide (PULMICORT) 0.25 mg/2 mL nebulizer solution Use 0.25 mg via nebulizer twice daily. levothyroxine (SYNTHROID) 75 mcg tablet Take 75 mcg by mouth daily before breakfast. ferrous sulfate 220 mg (44 mg iron)/5 mL elixir Take 220 mg by mouth once daily. HYDROcodone-Acetaminophen (NORCO) 7.5-325 mg per tablet Take 1 tablet by mouth every 4 hours as needed for pain. pramipexole (MIRAPEX) 0.5 mg tablet Take 0.5 mg by mouth as needed. No current facility-administered medications for this visit. MEDICATION ALLERGIES: ALLERGIES Allergen Reactions Ticagrelor Shortness of Breath No past medical history on file. PAST SURGICAL HISTORY Procedure Laterality Date MIDLINE INSERTION/CONSULT 11/15/2021 Social History Tobacco Use Smoking status: Current Every Day Smoker Smokeless tobacco: Former User Substance Use Topics Alcohol use: Not on file Drug use: Not on file = PHYSICAL EXAM: = BP 125/63 Pulse 97 Ht 180.3 cm (5' 11 ) Wt 58.9 kg (129 lb 12.8 oz) BMI 18.10 kg/m GENERAL: Underweight with nasogastric tube. Presents in [facility] wheelchair but stands independently to transfer to exam table and is able to don and doff pants without difficulty. Pleasant and engaged. RESP: Breathing comfortably on room air. ABDOMEN: Soft, nontender, nondistended, no masses. HERNIAS: None SKIN/LYMPH: No rash, lesions NEURO/PSYCH: No signs of depression, anxiety, or agitation EXTREMITIES: Extremities normal. No deformities, edema, clubbing or skin discoloration. GENITOURINARY: MALE EXAM: No scrotal lesions, cysts, rashes. Urethra & meatus: normal size & position w/o lesion or discharge. Penis: uncircumcised, w/o plaques, lesions, masses, or deformities. = MEDICAL DECISION MAKING: = (A1) IMPRESSION: (Diagnostic Possibilities) New or Established (R33.9) Urinary retention (primary encounter diagnosis) (N28.9) Renal lesion Plan: CT KIDNEY WO/W IVCON, iv contrast (will be provided with radiology test) (A2) PLAN: (Management Options) Franki Hernandez is 81 year old male with complex medical history. Has been managed with Berry since cardiac event on 07/06/2021. Discussed ISC vs. SPT. Franki Hernandez feels strongly that he wants to decrease the number of tubes/bags that he needs; wants to try ISC. Instilled 150 mL of sterile water through 16F straight Berry before Franki Hernandez reports strong urge to void. Removed Berry. Franki Hernandez was unable to pass any urine seated or standing. Reviewed ISC handouts with Franki Hernandez. He was able to wash hands, pull down pants, retract foreskin, use antiseptic wipe, and insert catheter in meatus. Reached resistance at prostate with 14F straight but was successful in passing 14F Coude (non hydrophilic from [facility] with green tip). Provided samples of 2 brands of 14F Coude (non hydrophilic) as well as a few 12F Coude from [facility] (white tip), plus lubricant and wipes. Will fax catheter order to [facility]. Instructed Franki Hernandez to try to void on his own, then do ISC TID. Will measure outputs for the next several days and follow up by phone early next week to confirm whether frequency should be adjusted. Ordered CT KIDNEY WO/W IVCON to further evaluate left renal lesion. Reordered pantoprazole suspension to [facility] pharmacy so daughter can investigate availability/pricing/alternativ es. Will message primary team members from discharge summary to let them know that Franki Hernandez needs follow up lab orders. I spent a total of 60 minutes on the date of the service which included preparing to see the patient, [id number] patient care, completing clinical documentation, performing a medically appropriate examination, counseling and educating the patient/family/caregiver, ordering medications, tests, or procedures and communicating with other HCPs (not separately reported). Electronically signed: Alissa Lackey APRN.NADER documented in this encounter [facility] 11-27-2021 Miscellaneous Notes PATIENT INFORMATION Record ID: [id number] Patient [facility]: [facility]: [facility] [place]: [facility] Attending: Peter Tobar Center: Hospital Medicine INSTRUCTIONS MA to remind patient of appointment date, time, location SURVEY INFORMATION Medical/Nurse Line Fisher: Ruth Coronel 1. Your discharge instructions are important in guiding you through the recovery process. Is there anything I could help you clarify on your discharge instructions? (Standard Question) No 2. Do you have a follow up appointment related to your hospital stay scheduled within the next 30 days? (Standard Question) Yes MA/ Notes: 11.27.21 Appt Urology. 3. Many patients have concerns about their medications once they are home. Do you have any questions about getting or taking your medications? (Standard Question) No 4. Do you have any new or different symptoms? (Standard Question) No documented in this encounter [facility] 11-20-2021 Miscellaneous Notes Patient has been referred to Dr. Idris Hawk for evaluation and treatment. Patient has been diagnosed with PVD. Records are in Care Everywhere and [facility]. Referral information is in Epic under scanned documents. Please advise if any additional testing is needed prior to scheduling. Best Contact: Juli Rodas Continuing Education Dean documented in this encounter [facility] 11-19-2021 Note [facility] 11-18-2021 Note [facility] 11-18-2021 Note [facility] 11-17-2021 Note [facility] 11-17-2021 Note [facility] 11-17-2021 Note [facility] 11-16-2021 Note [facility] 11-16-2021 Note [facility] 11-15-2021 Note [facility] 11-15-2021 Note [facility] 11-14-2021 Note [facility] 11-14-2021 Note [facility] 11-14-2021 Note [facility] 11-13-2021 Note [facility] 11-12-2021 Note [facility] 11-12-2021 Note [facility] 11-12-2021 Note [facility] 11-12-2021 Note [facility] 11-11-2021 Note [facility] 11-11-2021 Note [facility] 11-11-2021 Note [facility] 11-11-2021 Note [facility] 11-10-2021 Note [facility] 11-10-2021 Note [facility] 11-10-2021 Note [facility] 11-10-2021 Note [facility] Evaluation note Diagnosis Urinary retention- Primary Retention of urine, unspecified Renal lesion Unspecified disorder of kidney and ureter [facility] Diagnosis Screening for genitourinary condition Screening for other and unspecified genitourinary condition [facility] Diagnosis Cloudy urine- Primary Other nonspecific finding on examination of urine [facility] Diagnosis Screening for genitourinary condition Screening for other and unspecified genitourinary condition [facility]* Diagnosis Peripheral arterial disease (HCC)- Primary Peripheral vascular disease, unspecified documented in this encounter [facility] note* Diagnosis Feeding tube blocked, initial encounter- Primary SOB (shortness of breath) on exertion Shortness of breath Chronic cough Cough [facility]* Diagnosis Other specified disorders of kidney and ureter [facility]* Diagnosis Adult failure to thrive- Primary documented in this encounter [facility] noteNo assessment information availableSelect Medical [facility] Work Phone: Evaluation note* Diagnosis Adult failure to thrive- Primary Pre-op examination Preoperative examination, unspecified Adult failure to thrive Pre-op examination Preoperative examination, unspecified documented in this encounter [facility] note* Diagnosis S/P percutaneous endoscopic gastrostomy (PEG) tube placement (HCC)- Primary [facility]* Diagnosis Onset Date Resolution Status Acute exacerbation of chroni c obstructive pulmonary disease acute Atrial fibrillation acute Diabetes acute Leukocytosis acute Urinary retention acute [facility] Work Phone: Evaluation note* Diagnosis Renal lesion Unspecified disorder of kidney and ureter [facility] The patient states he has been generally stable since the last visit. Comorbid Illnesses: cardiac fa ilure, diabetes mellitus, hypertension and hyperlipidemia. * Symptoms: denies chest pain at rest, denies exertional chest pain, denies dyspnea, stable fatigue, stable exercise intolerance, denies palpitations, denies edema, denies orthopnea, denies dizziness and stable orthostatic dizziness. * Associated symptoms: no syncope. * His symptoms do not limit his activities. * Disease Monitoring: * Medications: the patient is adherent with his medication regimen. He denies medication side effects. [facility] [employer] DO Work Phone: History of Present illness Narrative* The patient states he has been generally doing well since the last visit. * Symptoms: denies chest pain at rest, denies exertional chest pain, denies dyspnea, stable fatigue, stable exercise intolerance, denies palpitations, denies edema, denies orthopnea, resolved dizzinessand resolved orthostatic dizziness. * Associated symptoms: no syncope. * His symptoms do not limit his activities. * Disease Monitoring: The patient has had a 5 pounds weight gain. * Medications: the patient is adherent with his medication regimen. He denies medication side effects. -[employer] DO Work Phone: History of Present illness Narrative* The patient states he has been generally doing well since the last visit. * Symptoms: denies chest pain at rest, denies exertional chest pain, denies dyspnea, stable fatigue, stable exercise intolerance, denies palpitations, denies edema, denies orthopnea, resolved dizzinessand resolved orthostatic dizziness. * Associated symptoms: no syncope. * His symptoms do not limit his activities. * Disease Monitoring: The patient has had a 5 pounds weight gain. * Medications: the patient is adherent with his medication regimen. He denies medication side effects. [employer] Work Phone: History of Present illness Narrative* The patient states he has been generally stable since the last visit. Comorbid Illnesses: cardiac failure, diabetes mellitus, hypertension and hyperlipidemia. * Symptoms: denies chest pain at rest, denies exertional chest pain, denies dyspnea, stable fatigue, stable exercise intolerance, denies palpitations, denies edema, denies orthopnea, denies dizziness and stable orthostatic dizziness. * Associated symptoms: no syncope. * His symptoms do not limit his activities. * Disease Monitoring: * Medications: the patient is adherent with his medication regimen. He denies medication side effects. [employer] DO Work Phone: Summary Purpose Family History Unknown Family Member Name Dates Details Family history of Alzheimer' s disease: Mother(V17.2, Z82.0) Status:Active Family history of alcoholism : Father(V17.0, Z81.1) Status:Active Family history of amyotrophi c lateral sclerosis: Sister(V17.2, Z82.0) Status:Active Family history of dementia: Sister(V17.2, Z81.8) Status:Active Family history of malignant neoplasm: Mother(V16.9, Z80.9) Status:Active Unknown Family Member Name Dates Details Family history of Alzheimer' s disease: Mother(V17.2, Z82.0) Status:Active Family history of alcoholism : Father(V17.0, Z81.1) Status:Active Family history of amyotrophi c lateral sclerosis: Sister(V17.2, Z82.0) Status:Active Family history of dementia: Sister(V17.2, Z81.8) Status:Active Family history of malignant neoplasm: Mother(V16.9, Z80.9) Status:Active Unknown Family Member Name Dates Details Family history of Alzheimer' s disease: Mother(V17.2, Z82.0) Status:Active Family history of alcoholism : Father(V17.0, Z81.1) Status:Active Family history of amyotrophi c lateral sclerosis: Sister(V17.2, Z82.0) Status:Active Family history of dementia: Sister(V17.2, Z81.8) Status:Active Family history of malignant neoplasm: Mother(V16.9, Z80.9) Status:Active Unknown Family Member Name Dates Details Family history of Alzheimer' s disease: Mother(V17.2, Z82.0) Status:Active Family history of alcoholism : Father(V17.0, Z81.1) Status:Active Family history of amyotrophi c lateral sclerosis: Sister(V17.2, Z82.0) Status:Active Family history of dementia: Sister(V17.2, Z81.8) Status:Active Family history of malignant neoplasm: Mother(V16.9, Z80.9) Status:Active Unknown Family Member Name Dates Details Family history of Alzheimer' s disease: Mother(V17.2, Z82.0) Status:Active Family history of alcoholism : Father(V17.0, Z81.1) Status:Active Family history of amyotrophi c lateral sclerosis: Sister(V17.2, Z82.0) Status:Active Family history of dementia: Sister(V17.2, Z81.8) Status:Active Family history of malignant neoplasm: Mother(V16.9, Z80.9) Status:Active Unknown Family Member Name Dates Details Family history of Alzheimer' s disease: Mother(V17.2, Z82.0) Status:Active Family history of alcoholism : Father(V17.0, Z81.1) Status:Active Family history of amyotrophi c lateral sclerosis: Sister(V17.2, Z82.0) Status:Active Family history of dementia: Sister(V17.2, Z81.8) Status:Active Family history of malignant neoplasm: Mother(V16.9, Z80.9) Status:Active Unknown Family Member Name Dates Details Family history of Alzheimer' s disease: Mother(V17.2, Z82.0) Status:Active Family history of alcoholism : Father(V17.0, Z81.1) Status:Active Family history of amyotrophi c lateral sclerosis: Sister(V17.2, Z82.0) Status:Active Family history of dementia: Sister(V17.2, Z81.8) Status:Active Family history of malignant neoplasm: Mother(V16.9, Z80.9) Status:Active Unknown Family Member Name Dates Details Family history of Alzheimer' s disease: Mother(V17.2, Z82.0) Status:Active Family history of alcoholism : Father(V17.0, Z81.1) Status:Active Family history of amyotrophi c lateral sclerosis: Sister(V17.2, Z82.0) Status:Active Family history of dementia: Sister(V17.2, Z81.8) Status:Active Family history of malignant neoplasm: Mother(V16.9, Z80.9) Status:Active Unknown Family Member Name Dates Details Family history of Alzheimer' s disease: Mother(V17.2, Z82.0) Status:Active Family history of alcoholism : Father(V17.0, Z81.1) Status:Active Family history of amyotrophi c lateral sclerosis: Sister(V17.2, Z82.0) Status:Active Family history of dementia: Sister(V17.2, Z81.8) Status:Active Family history of malignant neoplasm: Mother(V16.9, Z80.9) Status:Active Unknown Family Member Name Dates Details Family history of Alzheimer' s disease: Mother(V17.2, Z82.0) Status:Active Family history of alcoholism : Father(V17.0, Z81.1) Status:Active Family history of amyotrophi c lateral sclerosis: Sister(V17.2, Z82.0) Status:Active Family history of dementia: Sister(V17.2, Z81.8) Status:Active Family history of malignant neoplasm: Mother(V16.9, Z80.9) Status:Active Unknown Family Member Name Dates Details Family history of Alzheimer' s disease: Mother(V17.2, Z82.0) Status:Active Family history of alcoholism : Father(V17.0, Z81.1) Status:Active Family history of amyotrophi c lateral sclerosis: Sister(V17.2, Z82.0) Status:Active Family history of dementia: Sister(V17.2, Z81.8) Status:Active Family history of malignant neoplasm: Mother(V16.9, Z80.9) Status:Active Unknown Family Member Name Dates Details Family history of Alzheimer' s disease: Mother(V17.2, Z82.0) Status:Active Family history of alcoholism : Father(V17.0, Z81.1) Status:Active Family history of amyotrophi c lateral sclerosis: Sister(V17.2, Z82.0) Status:Active Family history of dementia: Sister(V17.2, Z81.8) Status:Active Family history of malignant neoplasm: Mother(V16.9, Z80.9) Status:Active Unknown Family Member Name Dates Details Family history of malignant neoplasm: Mother(V16.9, Z80.9) Status:Active Family history of dementia: Sister(V17.2, Z81.8) Status:Active Family history of amyotrophi c lateral sclerosis: Sister(V17.2, Z82.0) Status:Active Family history of alcoholism : Father(V17.0, Z81.1) Status:Active Family history of Alzheimer' s disease: Mother(V17.2, Z82.0) Status:Active Unknown Family Member Name Dates Details Family history of Alzheimer' s disease: Mother(V17.2, Z82.0) Status:Active Family history of alcoholism : Father(V17.0, Z81.1) Status:Active Family history of amyotrophi c lateral sclerosis: Sister(V17.2, Z82.0) Status:Active Family history of dementia: Sister(V17.2, Z81.8) Status:Active Family history of malignant neoplasm: Mother(V16.9, Z80.9) Status:Active Unknown Family Member Name Dates Details Family history of Alzheimer' s disease: Mother(V17.2, Z82.0) Status:Active Family history of alcoholism : Father(V17.0, Z81.1) Status:Active Family history of amyotrophi c lateral sclerosis: Sister(V17.2, Z82.0) Status:Active Family history of dementia: Sister(V17.2, Z81.8) Status:Active Family history of malignant neoplasm: Mother(V16.9, Z80.9) Status:Active Unknown Family Member Name Dates Details Family history of Alzheimer' s disease: Mother(V17.2, Z82.0) Status:Active Family history of alcoholism : Father(V17.0, Z81.1) Status:Active Family history of amyotrophi c lateral sclerosis: Sister(V17.2, Z82.0) Status:Active Family history of dementia: Sister(V17.2, Z81.8) Status:Active Family history of malignant neoplasm: Mother(V16.9, Z80.9) Status:Active Unknown Family Member Name Dates Details Family history of Alzheimer' s disease: Mother(V17.2, Z82.0) Status:Active Family history of alcoholism : Father(V17.0, Z81.1) Status:Active Family history of amyotrophi c lateral sclerosis: Sister(V17.2, Z82.0) Status:Active Family history of dementia: Sister(V17.2, Z81.8) Status:Active Family history of malignant neoplasm: Mother(V16.9, Z80.9) Status:Active Unknown Family Member Name Dates Details Family history of Alzheimer' s disease: Mother(V17.2, Z82.0) Status:Active Family history of alcoholism : Father(V17.0, Z81.1) Status:Active Family history of amyotrophi c lateral sclerosis: Sister(V17.2, Z82.0) Status:Active Family history of dementia: Sister(V17.2, Z81.8) Status:Active Family history of malignant neoplasm: Mother(V16.9, Z80.9) Status:Active Advance Directives Documents on File Type Date Recorded 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 Advance Directive(s) 11/09/2021 9:21 PM Latest Code Status on File Code Status Date Activated Date Inactivated Comments Full Code 11/10/2021 4:09 AM Full Code Order Discussed With: Patient Latest Code Status on File Code Status Date Activated Date Inactivated Comments Full Code 11/10/2021 4:09 AM 11/20/2021 9:01 PM Documents on File Type Date Recorded 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 * FRANKI HERNANDEZ is being seen for follow-up of a hospitalization for. * Patient is a 81-year-old gentleman returns for the first time following recent complicated hospitalization for pneumonia, aspiration pneumonia, heart failure, non-ST elevation CA with subsequent revascularization of the RCA with a drug-eluting stent. His initial ejection fraction by echo was 30% and by heart catheterization was 45 to 50%. * He has underlying peripheral vascular disease, tobacco use, COPD, with ongoing tobacco use 4 to 5 cigarettes daily at this point we have taken 5 minutes of our time on counseling against this hazardous activity and the benefits of tobacco cessation no matter how long he smoked. * Details of this hospitalization, cardiac catheterization, anatomy and follow- up and medications arereviewed with him and his daughter. Extensive counseling and answering questions with his daughter during our visit today proceeded. Patient was apparently readmitted to [facility] for dehydration/hypovolemia following his discharge from [facility] details of which are unknown. * Patient is lost approximately 50 pounds over the past year due to his acute on chronic illnesses. * Recommendations obtain chemistry panel, BNP, echocardiogram to reassess ventricular function, recommend hydration and nutritional supplementation, will follow-up in 6 months * PTCA. * FRANKI HERNANDEZ is being seen for follow-up of a hospitalization for. * Patient is a 81-year-old gentleman returns for the first time following recent complicated hospitalization for pneumonia, aspiration pneumonia, heart failure, non-ST elevation CA with subsequent revascularization of the RCA with a drug-eluting stent. His initial ejection fraction by echo was 30% and by heart catheterization was 45 to 50%. * He has underlying peripheral vascular disease, tobacco use, COPD, with ongoing tobacco use 4 to 5 cigarettes daily at this point we have taken 5 minutes of our time on counseling against this hazardous activity and the benefits of tobacco cessation no matter how long he smoked. * Details of this hospitalization, cardiac catheterization, anatomy and follow- up and medications arereviewed with him and his daughter. Extensive counseling and answering questions with his daughter during our visit today proceeded. Patient was apparently readmitted to [facility] for dehydration/hypovolemia following his discharge from [facility] details of which are unknown. * Patient is lost approximately 50 pounds over the past year due to his acute on chronic illnesses. * Recommendations obtain chemistry panel, BNP, echocardiogram to reassess ventricular function, recommend hydration and nutritional supplementation, will follow-up in 6 months * PTCA. * FRANKI HERNANDEZ is being seen for follow-up of a hospitalization for. * Patient is a 81-year-old gentleman returns for the first time following recent complicated hospitalization for pneumonia, aspiration pneumonia, heart failure, non-ST elevation CA with subsequent revascularization of the RCA with a drug-eluting stent. His initial ejection fraction by echo was 30% and by heart catheterization was 45 to 50%. * He has underlying peripheral vascular disease, tobacco use, COPD, with ongoing tobacco use 4 to 5 cigarettes daily at this point we have taken 5 minutes of our time on counseling against this hazardous activity and the benefits of tobacco cessation no matter how long he smoked. * Details of this hospitalization, cardiac catheterization, anatomy and follow- up and medications arereviewed with him and his daughter. Extensive counseling and answering questions with his daughter during our visit today proceeded. Patient was apparently readmitted to [facility] for dehydration/hypovolemia following his discharge from [facility] details of which are unknown. * Patient is lost approximately 50 pounds over the past year due to his acute on chronic illnesses. * Recommendations obtain chemistry panel, BNP, echocardiogram to reassess ventricular function, recommend hydration and nutritional supplementation, will follow-up in 6 months * [facility] * FRANKI HERNANDEZ is being seen for a 4 month follow-up of coronary artery disease and cardiomyopathy. * Patient ambulatory with wheeled walker. * Accompanied by daughter. * Evaluated in clinic Dr. Collins August 2021. * October 2021 hospitalized at [facility] d/t malnutrition. Had PEG removed and Corpak placed. * Saw Cardiology d/t PAF on admit ECG - placed on Eliquis * Coreg stopped d/t bradycardia * Presents today off atorvastatin (? if d/t persistent diarrhea) * He has been home for 2 weeks * Can't gain any weight * Diarrhea resolved. * Primary complaints: dizziness and weakness. * Standing BP 80/60 + dizziness * Educated on avoidance techniques for orthostatic hypotension * No compression stockings * f/u orthostatic hypotension: 'doing much better off medicines' * FRANKI HERNANDEZ is being seen for a 2 week follow-up of orthostatic hypotension. * f/u orthostatic hypotension: 'doing much better off medicines' * FRANKI HERNANDEZ is being seen for a 2 week follow-up of orthostatic hypotension. * Patient presents today ambulatory with steady gait. * Accompanied by daughter. * Last evaluated in clinic myself Dec 2021. * At that time +OH, stopped entresto. * Overall, patient reports doing much better off medications. * Daily activity: starting to increase. * Overall, denies chest pain and 'breathing pretty good' * Standing BP 110/62 * Overall patient is pleased with current state of cardiovascular health. At this time there are no indications for additional cardiovascular testing or need for medication changes. * FRANKI HERNANDEZ is being seen for a 6 month follow-up of. * 82-year-old gentleman returns for follow-up. He has had previous high risk non-ST elevation CA earlier this year July 2021, with subsequent revascularization of the RCA with drug-eluting stent and normalization of his LV function originally from 30 now up to 60% as measured by echo at [facility]. He has underlying peripheral vascular disease, ongoing tobacco use, COPD, history of throat cancer with PEG tube. * He underwent recent hospitalization at [facility] with significant weight loss and debility and revision of his PEG tube and now clinically improved putting and weight back on. He was diagnosedwith paroxysmal atrial fibrillation at the clinic and therefore initiated on Eliquis therapy. [facility] and clinic records are reviewed in their entirety that are available today * Notably he is not on a statin, he is not on JENNIFER or ARB. He is previously on Entresto but intolerantdue to severe hypotension but now with normalized left ventricular function. * We have counseled him on tobacco cessation extensively today, we will reinitiate atorvastatin 20 daily for secondary prevention, continue with the Eliquis clopidogrel combination at least through July 2022 at which point in time clopidogrel can come off. We will follow-up in 6 months * FRANKI HERNANDEZ is being seen for a 6 month follow-up of. * 82-year-old gentleman returns for follow-up. He has had previous high risk non-ST elevation CA earlier this year July 2021, with subsequent revascularization of the RCA with drug-eluting stent and normalization of his LV function originally from 30 now up to 60% as measured by echo at [facility]. He has underlying peripheral vascular disease, ongoing tobacco use, COPD, history of throat cancer with PEG tube. * He underwent recent hospitalization at [facility] with significant weight loss and debility and revision of his PEG tube and now clinically improved putting and weight back on. He was diagnosedwith paroxysmal atrial fibrillation at the clinic and therefore initiated on Eliquis therapy. [facility] and clinic records are reviewed in their entirety that are available today * Notably he is not on a statin, he is not on JENNIFER or ARB. He is previously on Entresto but intolerantdue to severe hypotension but now with normalized left ventricular function. * We have counseled him on tobacco cessation extensively today, we will reinitiate atorvastatin 20 daily for secondary prevention, continue with the Eliquis clopidogrel combination at least through July 2022 at which point in time clopidogrel can come off. We will follow-up in 6 months * FRANKI HERNANDEZ is being seen for a 6 month follow-up of. * Patient is an 82-year-old gentleman seeking preoperative risk assessment and clearance prior to lumbar surgical intervention with Dr. Lott, who I believe is going to perform a low risk laminoplasty as an outpatient. Patient himself has known coronary disease, who I first came to know 1 year ago when he had a non-ST elevation CA associated with pneumonia, and initial ejection fraction of 30%and subsequent revascularization of the right coronary artery with a drug-eluting stent and follow-up ejection fraction improved to 45 to 50% following revascularization. * He has underlying peripheral vascular disease, ongoing tobacco use, COPD, frailty, history of laryngeal cancer with subsequent PEG tube placement and significant protein calorie malnutrition associated with the above. * Coronary anatomy reveals mild 10 to 25% disease in the circumflex and LAD system, his RCA was 95% and we revascularized that again with improved left ventricular function. * He has paroxysmal A-fib. * Recommendations: He is clear for his intended low risk procedure, he can discontinue clopidogrel altogether, hold Eliquis 3 days prior to his surgery and reinitiate thereafterwards, provided 3 to 5 minutes of smoking cessation counseling with him and his family and will follow-up otherwise in 1 year * FRANKI HERNANDEZ is being seen for a 6 month follow-up of. * Patient is an 82-year-old gentleman seeking preoperative risk assessment and clearance prior to lumbar surgical intervention with Dr. Lott, who I believe is going to perform a low risk laminoplasty as an outpatient. Patient himself has known coronary disease, who I first came to know 1 year ago when he had a non-ST elevation CA associated with pneumonia, and initial ejection fraction of 30%and subsequent revascularization of the right coronary artery with a drug-eluting stent and follow-up ejection fraction improved to 45 to 50% following revascularization. * He has underlying peripheral vascular disease, ongoing tobacco use, COPD, frailty, history of laryngeal cancer with subsequent PEG tube placement and significant protein calorie malnutrition associated with the above. * Coronary anatomy reveals mild 10 to 25% disease in the circumflex and LAD system, his RCA was 95% and we revascularized that again with improved left ventricular function. * He has paroxysmal A-fib. * Recommendations: He is clear for his intended low risk procedure, he can discontinue clopidogrel altogether, hold Eliquis 3 days prior to his surgery and reinitiate thereafterwards, provided 3 to 5 minutes of smoking cessation counseling with him and his family and will follow-up otherwise in 1 year * [facility] * FRANKI HERNANDEZ is being seen for a 4 month follow-up of coronary artery disease and cardiomyopathy. * Patient ambulatory with wheeled walker. * Accompanied by daughter. * Evaluated in clinic Dr. Collins August 2021. * October 2021 hospitalized at [facility] d/t malnutrition. Had PEG removed and Corpak placed. * Saw Cardiology d/t PAF on admit ECG - placed on Eliquis * Coreg stopped d/t bradycardia * Presents today off atorvastatin (? if d/t persistent diarrhea) * He has been home for 2 weeks * Can't gain any weight * Diarrhea resolved. * Primary complaints: dizziness and weakness. * Standing BP 80/60 + dizziness * Educated on avoidance techniques for orthostatic hypotension * No compression stockings * FRANKI HERNANDEZ is being seen for med change, soon o/v. * Patient is a 83-year-old gentleman returns for follow-up. He has had several hospitalizations over the past 6 months at [facility] for shortness of breath, dyspnea, A-fib, dehydration with hyperkalemia. * He has known history of ASHD with ischemic cardiomyopathy with improved left ventricular function per last measurement by echo with ejection fraction up to 45 to 50%. 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 * 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 on tobacco cessation for 3 to 5 minutes today; we will follow-up in 6 months with nurse practitioner with no further changes to his medical regimen at this time * FRANKI HERNANDEZ is being seen for med change, soon o/v. * Patient is a 83-year-old gentleman returns for follow-up. He has had several hospitalizations over the past 6 months at [facility] for shortness of breath, dyspnea, A-fib, dehydration with hyperkalemia. * He has known history of ASHD with ischemic cardiomyopathy with improved left ventricular function per last measurement by echo with ejection fraction up to 45 to 50%. 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 * 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 on tobacco cessation for 3 to 5 minutes today; we will follow-up in 6 months with nurse practitioner with no further changes to his medical regimen at this time Reason for Referral Specialty Diagnoses / Procedures Referred By Joni mitchell Referred To Contact CT IMAGING Diagnoses Renal lesion Procedures CT KIDNEY WO/W IVCON CT ABDOMEN W & W/O CONTRAST Alissa Lackey APRN.INFORMATION SERVICES CONSULTANT [address] [place] [address] Ct Imaging Referral ID Status Reason Start Date Expiration Date Visits Requested Visits Authorized [id number] Pending Review Auto-Generat ed Referral 11/27/2021 12/27/2022 1 1 Specialty Diagnoses / Procedures Referred By Joni mitchell Referred To Contact MR IMAGING Diagnoses Other specified disorders of kidney and ureter Procedures MRI KIDNEY WO/W IVCON MRI ABDOMEN W/O & W/CONTRAST MATERIAL Alissa Lackey APRN.INFORMATION SERVICES CONSULTANT [address] [place] [address] Mr Imaging Referral ID Status Reason Start Date Expiration Date Visits Requested Visits Authorized [id number] Authorized Auto-Generat ed Referral 12/04/2021 01/03/2023 1 1 Referral ID Status Reason Start Date Expiration Date V isits Requested Visits Authorized [id number] Closed Auto-Generate d Referral 11/27/2021 12/27/2022 1 1 Chief Complaint and Reason for Visit Chief Complaint dysphasia, difficult y swallowing r13.[address] Roxanna richardson Reason for Visit Acute exacerbation o f chronic obstructive pulmonary disease Atrial fibrillation Diabetes Leukocytosis Urinary retention Additional Source Comments (unrecognized sect ion and content) No Status Records FoundNo Status Records FoundNo Status Records FoundNo Status Records FoundNo Status Records FoundNo Status Records FoundNo Status Records FoundNo Status Records Found INFORMATION SOURCE (unrecogn ized section and content) DATE CREATED AUTHOR 05/02/2018 [facility] DATE CREATED AUTHOR AUTHOR'S ORGANIZ ATION 11/09/2021 [facility] DATE CREATED AUTHOR AUTHOR'S ORGANIZ ATION 07/16/2022 [facility] DATE CREATED AUTHOR AUTHOR'S ORGANIZ ATION 10/07/2022 [facility] DATE CREATED AUTHOR AUTHOR'S ORGANIZ ATION 12/11/2022 [facility] DATE CREATED AUTHOR AUTHOR'S ORGANIZ ATION 01/02/2023 Nasir Brennan [facility] DATE CREATED AUTHOR AUTHOR'S ORGANIZ ATION 02/06/2023 [facility] DATE CREATED AUTHOR AUTHOR'S ORGANIZ ATION 02/06/2023 [employer] [facility] Comments (unrecognize d section and content) In the event this informatio n is protected by the Federal Confidentiality of Alcohol and Drug Abuse Patient Records regulations: The Federal rules restrict any use of the information to criminally investigate or prosecute any alcohol or drug abuse patient.[facility] the event this information is protected by the Federal Confidentiality of Alcohol and Drug Abuse Patient Records regulations: The Federal rules restrict any use of the information to criminally investigate or prosecute any alcohol or drug abuse patient.[facility] the event this information is protected by the Federal Confidentiality of Alcohol and Drug Abuse Patient Records regulations: The Federal rules restrict any use of the information to criminally investigate or prosecute any alcohol or drug abuse patient.[facility] the event this information is protected by the Federal Confidentiality of Alcohol and Drug Abuse Patient Records regulations: The Federal rules restrict any use of the information to criminally investigate or prosecute any alcohol or drug abuse patient.[facility] the event this information is protected by the Federal Confidentiality of Alcohol and Drug Abuse Patient Records regulations: The Federal rules restrict any use of the information to criminally investigate or prosecute any alcohol or drug abuse patient.[facility] the event this information is protected by the Federal Confidentiality of Alcohol and Drug Abuse Patient Records regulations: The Federal rules restrict any use of the information to criminally investigate or prosecute any alcohol or drug abuse patient.[facility] the event this information is protected by the Federal Confidentiality of Alcohol and Drug Abuse Patient Records regulations: The Federal rules restrict any use of the information to criminally investigate or prosecute any alcohol or drug abuse patient.[facility] the event this information is protected by the Federal Confidentiality of Alcohol and Drug Abuse Patient Records regulations: The Federal rules restrict any use of the information to criminally investigate or prosecute any alcohol or drug abuse patient.[facility] the event this information is protected by the Federal Confidentiality of Alcohol and Drug Abuse Patient Records regulations: The Federal rules restrict any use of the information to criminally investigate or prosecute any alcohol or drug abuse patient.[facility] the event this information is protected by the Federal Confidentiality of Alcohol and Drug Abuse Patient Records regulations: The Federal rules restrict any use of the information to criminally investigate or prosecute any alcohol or drug abuse patient.[facility] the event this information is protected by the Federal Confidentiality of Alcohol and Drug Abuse Patient Records regulations: The Federal rules restrict any use of the information to criminally investigate or prosecute any alcohol or drug abuse patient.[facility] the event this information is protected by the Federal Confidentiality of Alcohol and Drug Abuse Patient Records regulations: The Federal rules restrict any use of the information to criminally investigate or prosecute any alcohol or drug abuse patient.[facility] the event this information is protected by the Federal Confidentiality of Alcohol and Drug Abuse Patient Records regulations: The Federal rules restrict any use of the information to criminally investigate or prosecute any alcohol or drug abuse patient.[facility] the event this information is protected by the Federal Confidentiality of Alcohol and Drug Abuse Patient Records regulations: The Federal rules restrict any use of the information to criminally investigate or prosecute any alcohol or drug abuse patient.[facility] the event this information is protected by the Federal Confidentiality of Alcohol and Drug Abuse Patient Records regulations: The Federal rules restrict any use of the information to criminally investigate or prosecute any alcohol or drug abuse patient.[facility] the event this information is protected by the Federal Confidentiality of Alcohol and Drug Abuse Patient Records regulations: The Federal rules restrict any use of the information to criminally investigate or prosecute any alcohol or drug abuse patient.[facility] the event this information is protected by the Federal Confidentiality of Alcohol and Drug Abuse Patient Records regulations: The Federal rules restrict any use of the information to criminally investigate or prosecute any alcohol or drug abuse patient.[facility] the event this information is protected by the Federal Confidentiality of Alcohol and Drug Abuse Patient Records regulations: The Federal rules restrict any use of the information to criminally investigate or prosecute any alcohol or drug abuse patient.[facility] the event this information is protected by the Federal Confidentiality of Alcohol and Drug Abuse Patient Records regulations: The Federal rules restrict any use of the information to criminally investigate or prosecute any alcohol or drug abuse patient.[facility] Reason for Visit (unrecogniz ed section and content) Reason Comments Appointment Reason Comments Follow Up Phone Call All Clear Reason Comments Consult Reason Comments Patient Question Reason Comments Consult Reason Comments Physiological Problem - GI Reason Comments Results Specialty Diagnoses / Procedures Referred By Joni t Referred To Contact MR IMAGING Diagnoses Other specified disorders of kidney and ureter Procedures MRI KIDNEY WO/W IVCON MRI ABDOMEN W/O & W/CONTRAST MATERIAL Alissa Lackey, SHUTTLE THREADER.INFORMATION SERVICES CONSULTANT [address] [place] [address] Mr Imaging Referral ID Status Reason Start Date Expiration Date Visits Requested Visits Authorized [id number] Authorized Auto-Generat ed Referral 12/04/2021 01/03/2023 1 1 Reason Comments Established Patient Reason Comments 01/28/2022 Reason Comments Patient Update Reason Comments Medication Problem Reason Onset Date Comments Opened In Error 02/17/2022 Specialty Diagnoses / Procedures Referred By Joni t Referred To Contact CT IMAGING Diagnoses Renal lesion Procedures CT KIDNEY WO/W IVCON CT ABDOMEN W & W/O CONTRAST Alissa Lackey, SHUTTLE THREADER.INFORMATION SERVICES CONSULTANT [address] [place] [address] Ct Imaging Referral ID Status Reason Start Date Expiration Date V isits Requested Visits Authorized [id number] Closed Auto-Generate d Referral 11/27/2021 12/27/2022 1 1 Care Teams (unrecognized sec tion and content) Team Status: Active Member Role Status Dates Micheal Gutiérrez MD Primary Care Provider Active Team Status: Active Member Role Status Dates Micheal Gutiérrez MD Primary Care Provider Active Shukri Francisco MD Emergency Provider Active Jean-Pierre Otero DO Admit Provider, Attending Provider Active Roofing Apprentice Relationship Specialty Start Date End Date Micheal Gutiérrez MD [address] [place] [address] PCP - General Family Practice 11/10/21 Roofing Apprentice Relationship Specialty Start Date End Date Micheal Gutiérrez MD [address] [place] [address] PCP - General Family Practice 11/10/21 Roofing Apprentice Relationship Specialty Start Date End Date Micheal Gutiérrez MD [address] [place] [id number] PCP - General Family Practice 11/10/21 Roofing Apprentice Relationship Specialty Start Date End Date Micheal Gutiérrez MD [address] [place] [id number] PCP - General Family Practice 11/10/21 Roofing Apprentice Relationship Specialty Start Date End Date Micheal Gutiérrez MD [address] [place] [id number] PCP - General Family Practice 11/10/21 Roofing Apprentice Relationship Specialty Start Date End Date Micheal Gutiérrez MD [address] [place] [id number] PCP - General Family Practice 11/10/21 Roofing Apprentice Relationship Specialty Start Date End Date Micheal Gutiérrez MD [address] [place] [id number] PCP - General Family Practice 11/10/21 Roofing Apprentice Relationship Specialty Start Date End Date Micheal Gutiérrez MD [address] [place] [id number] PCP - General Family Practice 11/10/21 Roofing Apprentice Relationship Specialty Start Date End Date Micheal Gutiérrez MD [address] [place] [address] PCP - General Family Practice 11/10/21 Roofing Apprentice Relationship Specialty Start Date End Date Micheal Gutiérrez MD [address] [place] [address] PCP - General Family Practice 11/10/21 Roofing Apprentice Relationship Specialty Start Date End Date Micheal Gutiérrez MD [address] [place] [address] PCP - General Family Practice 11/10/21 Roofing Apprentice Relationship Specialty Start Date End Date Micheal Gutiérrez MD [address] [place] [id number] PCP - General Family Practice 11/10/21 Team Status: Inactive Member Role Status Dates Micheal Gutiérrez MD Primary Care Provider Active Dino Guzman MD Attending Provider Active Roofing Apprentice Relationship Specialty Start Date End Date Micheal Gutiérrez MD [address] [place] [id number] PCP - General Family Practice 11/10/21 Roofing Apprentice Relationship Specialty Start Date End Date Micheal Gutiérrez MD [address] [place] [id number] PCP - General Family Practice 11/10/21 Roofing Apprentice Relationship Specialty Start Date End Date Micheal Gutiérrez MD [address] [place] [id number] PCP - General Family Medicine 11/10/21 Roofing Apprentice Relationship Specialty Start Date End Date Micheal Gutiérrez MD [address] [place] [address] PCP - General Family Medicine 11/10/21 Roofing Apprentice Relationship Specialty Start Date End Date Micheal Gutiérrez MD PCP - General Family Medicine 11/10/21 Goals (unrecognized section and content) Goals may be documented in a n alternate sectionGoals may be documented in an alternate sectionGoals may be documented in an alternate section FOR RECORDS PERTAINING TO PATIENTS WHO ARE OR HAVE BEEN ENROLLED IN A CHEMICAL DEPENDENCY/SUBSTANCEABUSE PROGRAM, SOME INFORMATION MAY BE OMITTED. This clinical summary was aggregated from multiple sources. Caution should be exercised in using it in the provision of clinical care. This summary normalizes information from multiple sources, and as a consequence, information in this document may materially change the coding, format and clinical context of patient data. In addition, data may be omitted in some cases. CLINICAL DECISIONS SHOULD BE BASED ON THE PRIMARY CLINICAL RECORDS. [facility]. provides no warranty or guarantee of the accuracy or completeness of information in this document.
--- NOTE | 2023-05-14 22:34 | ECG_ITS ---
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
--- NOTE | 2023-05-14 22:34 | XR_ITS ---
The [address] [address] Patient Name: FRANKI VELA MRN: [id number] date: 1940 Sex: M Assigned Patient Location: ER Current Patient Location: ER Accession/Order Number: [id number] Exam Date: 05/14/2023 23:25 Report Date: 05/14/2023 23:50 At the request of: RANGEL MCGOVERN Procedure: XR chest 1V EXAMINATION: XR chest 1V HISTORY: cough COMPARISON: XR chest 12/07/2022 FINDINGS: LUNGS: Underexpanded lungs with mild opacity and stranding within lung bases, right greater than left. VASCULATURE: No increased pulmonary vasculature. PLEURA: No pneumothorax, effusion, or pleural thickening. CARDIAC: No cardiomegaly or cardiac silhouette abnormality. MEDIASTINUM: No visible mass or adenopathy. BONES: No fracture or visible bone lesion. OTHER: Negative. XR/XR chest 1V IMPRESSION: 1. Interval increase in right basilar infiltrates versus atelectasis. Stable findings on left. Electronically authenticated by: DARIAN BUTTS Date: 05/14/2023 23:50
--- NOTE | 2023-05-14 22:35 | ED.GENADUL1 ---
HPI - General Adult General Chief complaint: Nausea/Vomiting/Diarrhea Stated complaint: Nausea/Vomiting, General Weakness Time Seen by Provider: 05/14/23 22:23 Source: patient and family Limitations: no limitations History of Present Illness HPI narrative: developed cough 3 days ago and then started vomiting yesterday. Has PEG tube and gets tube feeds. Once he vomited, they stopped the tube feed last night and then did not resume until this evening. He vomited again tonight. Cough has been producing thick whitish sputum. he is generally weak. Decreased activity. No fever at home, per daughter. Passing stool normally, no diarrhea, but stool is black and he does not take iron supplements. 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 Related Data Home Medications Medication Instructions Recorded Confirmed albuterol sulfate 90 mcg/actuation 1 inh inhalation Q4H PRN shortness 11/10/22 02/02/23 aerosol inhaler (ProAir HFA) of breath or wheezing apixaban 2.5 mg tablet (Eliquis) 2.5 mg PO BID 11/10/22 02/02/23 budesonide 0.5 mg/2 mL suspension 0.5 mg inhalation BID 11/10/22 02/02/23 for nebulization finasteride 5 mg tablet 5 mg PO DAILY 11/10/22 02/02/23 hydrocodone 10 mg-acetaminophen 1 tab PO Q6H PRN pain 11/10/22 02/02/23 325 mg tablet insulin glargine 100 unit/mL (3 30 unit subcut DAILY 11/10/22 02/02/23 mL) subcutaneous pen (Lantus Solostar U-100 Insulin) levothyroxine 75 mcg capsule 75 mcg PO DAILY 11/10/22 02/02/23 pantoprazole 40 mg tablet,delayed 40 mg PO DAILY 11/10/22 02/02/23 release atorvastatin 20 mg tablet (Lipitor) 20 mg PO QPM 12/07/22 02/02/23 carvedilol 12.5 mg tablet 12.5 mg PO BID 12/07/22 02/02/23 diltiazem HCl 60 mg 60 mg PO BID 12/07/22 02/02/23 capsule,extended release 12 hr spironolactone 25 mg tablet 12.5 mg PO QAM 12/07/22 02/02/23 calcitonin (salmon) 200 1 spray intranasal (ALT) DAILY 12/18/22 02/02/23 unit/actuation nasal spray ferrous sulfate 220 mg (44 mg 220 mg PO QDAY 12/18/22 02/02/23 iron)/5 mL oral elixir ondansetron 4 mg disintegrating 4 mg PO QID PRN nausea and vomiting 12/18/22 02/02/23 tablet pramipexole 0.5 mg tablet (Mirapex) 0.5 mg PO QPM 12/18/22 02/02/23 prednisone 20 mg tablet 20 mg PO QDAY 12/18/22 02/02/23 cefdinir 250 mg/5 mL oral mg 02/02/23 suspension Previous Rx's Medication Instructions Recorded food supplemt, lactose-reduced 1 ea feeding tube Q4H #5,688 mL 12/08/22 0.04 gram-1.05 kcal/mL oral liquid (Ensure Original) clopidogrel 75 mg tablet 75 mg PO QD #30 tabs 12/23/22 lactulose 10 gram/15 mL (15 mL) 10 g (15 mL) PO TID 30 days #1,350 12/23/22 oral solution mL linezolid 600 mg tablet 600 mg PO BID 10 days #20 tabs 12/23/22 water for irrigation, sterile 250 ml G-tube TID 30 days #6,000 mL 12/23/22 methocarbamol 750 mg tablet 750 mg PO Q6H PRN pain #20 tabs 04/09/23 Allergies Allergy/AdvReac Type Severity Reaction Status Date / Time No Known Drug Allergies Allergy Verified 05/14/23 22:35 [facility] Medical History (Updated 05/15/23 @ 00:11 by Rangel Mcgovern) Acute hyperkalemia ?E87.5 - Hyperkalemia (ICD-10) Acute dehydration ?E86.0 - Dehydration (ICD-10) Community acquired pneumonia ?J18.9 - Pneumonia, unspecified organism (ICD-10) History of gastrostomy tube placement History of arthritis ?Z87.39 - Personal history of other diseases of the musculoskeletal system and connective tissue (ICD-10) History of diabetes mellitus ?Z86.39 - Personal history of other endocrine, nutritional and metabolic disease (ICD-10) History of COPD ?Z87.09 - Personal history of other diseases of the respiratory system (ICD-10) History of throat cancer ?Z85.819 - Personal history of malignant neoplasm of unspecified site of lip, oral cavity, and pharynx (ICD-10) History of PA (myocardial infarction) ?I25.2 - Old myocardial infarction (ICD-10) History of compression fracture of spine ?Z87.81 - Personal history of (healed) traumatic fracture (ICD-10) Surgical History (Updated 11/10/22 @ 12:02 by Ronnie Rosado) History of colonoscopy ?Z98.890 - Other specified postprocedural states (ICD-10) History of esophagogastroduodenoscopy (EGD) ?Z98.890 - Other specified postprocedural states (ICD-10) History of heart artery stent ?Z95.5 - Presence of coronary angioplasty implant and graft (ICD-10) Social History (Updated 11/10/22 @ 15:16 by Rebecca Morocho) Smoking status: Current every day smoker Nicotine containing products detail: 66 1 pack per day Do you think of yourself as: straight/heterosexual Exam Narrative Exam Narrative: Nurses notes and vital signs reviewed and patient is not hypoxic. afebrile General: Well-appearing and in no apparent distress. Skin: Warm, dry, no pallor noted. No rash. Head: Normocephalic, atraumatic. Neck: Supple, non-tender. No cervical lymphadenopathy or meningismus. Eye: Pupils are equal, round and EOMI. No scleral icterus. Ears, Nose, Mouth, and Throat: Oral mucosa is moist Cardiovascular: tachycardia. Respiratory: No accessory muscle use or respiratory distress. Lungs with scattered rhonchi Back: No CVA tenderness Musculoskeletal: normal ROM, no calf or popliteal tenderness, no lower extremity edema/swelling GI: Abdomen is soft, non-distended. Normal bowel sounds. PEG tube in place without associated erythema or drainage. No tenderness to palpation. No rebound, guarding, or rigidity noted. Neurological: A&O x4. No cranial nerve dysfunction observed. No truncal ataxia. Moves all extremities. Sensation intact. Psychiatric: Cooperative and interactive. Normal mood and affect. Constitutional Vital Signs, click to edit/add: Last Vital Signs Temp 100.2 F 05/14/23 23:21 Pulse 106 H 05/14/23 23:52 Resp 18 05/15/23 00:03 BP 122/94 H 05/14/23 23:52 Pulse Ox 94 L 05/14/23 23:52 O2 Del Method Room Air 05/14/23 23:52 Course Vital Signs Vital signs: Vital Signs Temperature 97.1 F L 05/14/23 22:28 Pulse Rate 109 H 05/14/23 22:28 Respiratory Rate 24 05/14/23 22:28 Blood Pressure 131/57 05/14/23 22:28 Pulse Oximetry 92 L 05/14/23 22:28 Oxygen Delivery Method Room Air 05/14/23 22:28 Temperature 100.2 F 05/14/23 23:21 Pulse Rate 106 H 05/14/23 23:52 Respiratory Rate 18 05/15/23 00:03 Blood Pressure 122/94 H 05/14/23 23:52 Pulse Oximetry 94 L 05/14/23 23:52 Oxygen Delivery Method Room Air 05/14/23 23:52 Medical Decision Making MDM Narrative Medical decision making narrative: 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 Respiratory panel swab obtained. Blood drawn and sent for evaluation. Chest x-ray obtained. CT scan of the abdomen pelvis also obtained. Urine was also ordered to be obtained. ED nurse identified a coccyx decubitus ulcer measuring 5yrn9es and she placed a duoderm over it. WBC elevated at 20.8k with left shift. Lactate negative. Hb 10.9. he was rectal/hemoccult positive. Normal electrolytes. Elevated BUN and Cr appear at baseline based on prior results. LFTs are not elevated. Troponin and Lipase negative. CXR with possible right basilar infiltrates. CT abd/pelvis reveal RML consolidation suggestive of multifocal infection, possibly due to aspiration with history of vomiting. Pther incidental findings including proctatitis - may be cause of hemoccult positive stools - an enlarging liver hypodense mass and renal changes - cyst vs mass. Patient had blood cultures obtained. He was given IV Rocephin and IV Levaquin. Daughter said that he is receiving Clindamycin and doxycyline daily to prevent aspiration pneumonia . Not clear from the daughter how long he has been on those. [employer] text placed to Dr Guerrero to discuss admission. Dr Guerrero agreed to admit the patient to [facility], inpatient, on behalf of Dr Hutchison. Patient and daughter informed of dingings and plan for treatment/disposition. Lab Data Lab results reviewed: Yes I reviewed the patient's lab results Labs: Lab Results 05/14/23 05/14/23 Range/Units 22:45 23:18 WBC 20.8 H (4.0-11.0) 10^3/uL RBC 3.49 L (4.70-6.10) 10^6/uL Hgb 10.9 L (14.0-18.0) g/dL Hct 33.9 L (42.0-54.0) % MCV 97.1 H (80.0-94.0) fL MCH 31.2 (25.9-34.0) pg MCHC 32.2 (29.9-35.2) g/dL RDW 14.1 (11.0-15.0) % Plt Count 450 (150-450) 10^3/uL MPV 10.0 (9.5-13.5) fL Neut % (Auto) 88.6 H (43.0-75.0) % Lymph % (Auto) 3.5 L (20.5-60.0) % Yancey % (Auto) 6.8 (1.7-12.0) % Eos % (Auto) 0.1 L (0.9-7.0) % Baso % (Auto) 0.5 (0.2-2.0) % Neut # (Auto) 18.4 H (1.4-6.5) 10^3/uL Lymph # (Auto) 0.7 L (1.2-3.8) 10^3/uL Yancey # (Auto) 1.4 H (0.3-0.8) 10^3/uL Eos # (Auto) 0.0 (0.0-0.7) 10^3/uL Baso # (Auto) 0.1 (0.0-0.1) 10^3/uL Abs Immat Gran (auto) 0.10 H (0.00-0.03) 10^3/uL Imm/Tot Granulo (auto) 0.5 (0.0-0.5) % Sodium 138 (136-145) mmol/L Potassium 4.2 (3.5-5.1) mmol/L Chloride 103 (98-107) mmol/L Carbon Dioxide 29.2 (21.0-32.0) mmol/L Anion Gap 10.0 BUN 53.0 H (7.0-18.0) mg/dL Creatinine 1.59 H (0.70-1.30) mg/dL Est GFR ( Amer) 51 L (>=60) Est GFR (Non-Af Amer) 42 L (>=60) BUN/Creatinine Ratio 33.3 Glucose 171 H (74-106) mg/dL Lactate 1.9 (0.4-2.0) mmol/L Calcium 9.6 (8.5-10.1) mg/dL Total Bilirubin 0.4 (0.2-1.0) mg/dL AST 12 L (15-37) U/L ALT 13 L (16-63) U/L Alkaline Phosphatase 135 H (46-116) U/L Troponin I High Sens 7.6 (4.0-76.1) pg/mL Total Protein 6.5 (6.4-8.2) g/dL Albumin 2.3 L (3.4-5.0) g/dL Globulin 4.2 g/dL Albumin/Globulin Ratio 0.5 Lipase 12.0 L (16.0-77.0) U/L Stool Occult Blood Positive A Adenovirus (PCR) Not detected (NOT DETECTE) C. pneumoniae DNA (PCR) Not detected (NOT DETECTE) Coronavirus Type OC43 Not detected (NOT DETECTE) Coronavirus Type HKU1 Not detected (NOT DETECTE) Coronavirus Type 229E Not detected (NOT DETECTE) Coronavirus Type NL63 Not detected (NOT DETECTE) Human Metapneumovir PCR Not detected (NOT DETECTE) M. pneumoniae (PCR) Not detected (NOT DETECTE) Parainfluenza PCR Not detected (NOT DETECTE) Parainfluenza 2 (PCR) Not detected (NOT DETECTE) Parainfluenza 3 (PCR) Not detected (NOT DETECTE) Parainfluenza 4 (PCR) Not detected (NOT DETECTE) RSV (RT-PCR) Not detected (NOT DETECTE) Entero/Rhino (PCR) Not detected (NOT DETECTE) SARS-CoV-2 (PCR) Not detected (NOT DETECTE) Bordetella pertussis (PCR) Not detected (NOT DETECTE) B parapertussis DNA PCR Not detected (NOT DETECTE) Influenza Type A (PCR) Not detected (NOT DETECTE) Influenza Type B (PCR) Not detected (NOT DETECTE) Imaging Data Chest x-ray: Attestation: I have reviewed the pertinent imaging results. Radiologist's impression: Patient Name: FRANKI VELA MRN: [id number] date: 1940 Sex: M Assigned Patient Location: ER Current Patient Location: ER Accession/Order Number: [id number] Exam Date: 05/14/2023 23:25 Report Date: 05/14/2023 23:50 At the request of: RANGEL MCGOVERN Procedure: XR chest 1V EXAMINATION: XR chest 1V HISTORY: cough COMPARISON: XR chest 12/07/2022 FINDINGS: LUNGS: Underexpanded lungs with mild opacity and stranding within lung bases, right greater than left. VASCULATURE: No increased pulmonary vasculature. PLEURA: No pneumothorax, effusion, or pleural thickening. CARDIAC: No cardiomegaly or cardiac silhouette abnormality. MEDIASTINUM: No visible mass or adenopathy. BONES: No fracture or visible bone lesion. OTHER: Negative. IMPRESSION: 1. Interval increase in right basilar infiltrates versus atelectasis. Stable findings on left. Electronically authenticated by: DARIAN BUTTS Date: 05/14/2023 23:50 CT scan - abdomen: Attestation: I have reviewed the pertinent imaging results. Radiologist's impression: Patient Name: FRANKI VELA MRN: [id number] date: 1940 Sex: M Assigned Patient Location: ER Current Patient Location: ER Accession/Order Number: [id number] Exam Date: 05/14/2023 23:25 Report Date: 05/14/2023 23:59 At the request of: RANGEL MCGOVERN Procedure: CT abdomen pelvis wo con EXAMINATION:CT abdomen pelvis wo con INDICATION:vomiting COMPARISON:09/12/2022 TECHNIQUE:Multiple thin section transaxial slices were acquired through the abdomen and pelvis without intravenous contrast. Coronal and sagittal reconstructed images were reviewed. Oral contrastWas not administered. FINDINGS: LOWER CHEST: Several new tree-in-bud nodules and patchy airspace densities have developed throughout the lung bases. There is consolidative airspace disease in the right middle lobe. The findings in the lung bases are concerning for multifocal infection. There is bronchiectasis present in the lung bases with mucous plugging. LIVER: There is an oval hypodense mass in the anterior liver measuring 5.1 x 4.8 cm. GALLBLADDER AND BILIARY SYSTEM: No obvious ductal dilation. No calcified stones. SPLEEN: The spleen is unremarkable. PANCREAS: The pancreas is unremarkable. ADRENAL GLANDS: The adrenal glands are unremarkable. KIDNEYS AND URETERS: There is no hydronephrosis of the kidneys.There are hypodense nodule arising from the posterior lateral upper left kidney measuring 1.9 cm and the posterior lower right kidney measuring 1.0 cm. These were present on the prior exam and are not significantly changed. The imaging findings are not compatible with simple cysts. The ureters are within normal limits without obstructing urologic calcifications. VASCULATURE: Atherosclerotic plaque is present throughout the abdominal aorta without aneurysm. PERITONEUM/RETROPERITONEUM: There is presacral and perirectal inflammation. LYMPH NODES: No suspicious lymphadenopathy. GASTROINTESTINAL TRACT: There is inflammation surrounding the rectum concerning for proctitis.There is chronic colonic diverticulosis of the colon without acute inflammation.There is no bowel obstruction. The appendix is visualized and is not inflamed. BLADDER: The urinary bladder is unremarkable. REPRODUCTIVE SYSTEM: Reproductive system is unremarkable. BODY WALL: There is a tiny fat-containing umbilical hernia. BONES: The bones are severely osteopenic with multiple compression fractures which have developed in the T9, L2, L3 and L5 levels. Chronic compression fractures are present in the T11 and L1 levels. Multiple chronic rib fractures are present. There are 111healing fractures of the right superior and inferior rami. IMPRESSION: 1. Inflammation associated with the rectum concerning for proctitis. 2. Extensive new airspace disease in the lung bases with consolidation in the right middle lobe concerning for multifocal infection. Aspiration cannot be excluded given the CT appearance. 3. Increase in size of a hypodense mass in the anterior liver. This could be better characterized with hepatic protocol MRI. 4. 2 hypodensities are present, one in each kidney which were present on the previous CT scan. These are not compatible with simple cysts. These could be further characterized with MRI or closely followed up to document stability. 5. Multiple new compression fractures in the lower thoracic and lumbar spine as above. Electronically authenticated by: GINETTE LONG Date: 05/14/2023 23:59 ECG Data Attestation: I personally reviewed and interpreted this ECG as follows: Interpretation: EKG interpretation: Emergency Department physician interpretation. Sinus tachycardia at 104bpm. Normal axis, normal intervals and no ST segment elevation. Non-specific changes with baseline artifact noted. Discharge Plan Discharge Chief Complaint: Nausea/Vomiting/Diarrhea Clinical Impression: Decubitus ulcer of coccygeal region, Right middle lobe pneumonia, Vomiting Patient Disposition: Admitted As Inpatient Time of Disposition Decision: 00:11
[2023-05-14 23:11] LABS: Adenovirus NOT DETECTED (NOT DETECTE); Bordetella parapertussis NOT DETECTED (NOT DETECTE); Coronavirus 229E NOT DETECTED (NOT DETECTE); Coronavirus HKU1 NOT DETECTED (NOT DETECTE); Coronavirus NL63 NOT DETECTED (NOT DETECTE); Coronavirus OC43 NOT DETECTED (NOT DETECTE); Human Metapneumovirus NOT DETECTED (NOT DETECTE); Human Rhinovirus/Enterovirus NOT DETECTED (NOT DETECTE); Influenza A NOT DETECTED (NOT DETECTE); Influenza B NOT DETECTED (NOT DETECTE); Mycoplasma pneumoniae NOT DETECTED (NOT DETECTE); Parainfluenza Virus 1 NOT DETECTED (NOT DETECTE); Parainfluenza Virus 2 NOT DETECTED (NOT DETECTE); Parainfluenza Virus 3 NOT DETECTED (NOT DETECTE); Parainfluenza Virus 4 NOT DETECTED (NOT DETECTE); Respiratory Syncytial Virus NOT DETECTED (NOT DETECTE); SARS-CoV-2 NOT DETECTED (NOT DETECTE)
[2023-05-14 23:20] LABS: Basophils Absolute Auto 0.1 10^3/uL (0.0-0.1); Basophils Percent Auto 0.5 % (0.2-2.0); Eosinophils Percent Auto 0.1 % (0.9-7.0); Hematocrit 33.9 % (42.0-54.0); Hemoglobin 10.9 g/dL (14.0-18.0); Immature Granulocytes Pct Auto 0.5 % (0.0-0.5); Lymphocytes Absolute Auto 0.7 10^3/uL (1.2-3.8); Lymphocytes Percent Auto 3.5 % (20.5-60.0); Mean Corpuscular HGB Conc 32.2 g/dL (29.9-35.2); Mean Corpuscular Hemoglobin 31.2 pg (25.9-34.0); Mean Corpuscular Volume 97.1 fL (80.0-94.0); Monocytes Absolute Auto 1.4 10^3/uL (0.3-0.8); Monocytes Percent Auto 6.8 % (1.7-12.0); Neutrophils Absolute Auto 18.4 10^3/uL (1.4-6.5); Neutrophils Percent Auto 88.6 % (43.0-75.0); Platelet Count 450 10^3/uL (150-450); Red Blood Count 3.49 10^6/uL (4.70-6.10); Red Cell Distribution Width 14.1 % (11.0-15.0); White Blood Count 20.8 10^3/uL (4.0-11.0)
[2023-05-14] MEDS: 0.9 % SODIUM CHLORIDE 1,000 ML 999 ML IV (23:20)
[2023-05-14 23:21] VITALS: TEMP 37.9
[2023-05-14] MEDS: ACETAMINOPHEN 650 MG RECTAL SUPPOSITORY PR (23:21)
[2023-05-14 23:31] LABS: Occult Blood Positive
[2023-05-14 23:40] LABS: Lactate/Lactic Acid 1.9 mmol/L (0.4-2.0)
[2023-05-14 23:43] VITALS: PULSE 109
[2023-05-14 23:47] LABS: Alanine Aminotransferase 13 U/L (16-63); Albumin Globulin Ratio 0.5; Albumin Level 2.3 g/dL (3.4-5.0); Alkaline Phosphatase 135 U/L (46-116); Aspartate Amino Transferase 12 U/L (15-37); BUN Creatinine Ratio 33.3; Bilirubin Total 0.4 mg/dL (0.2-1.0); Calcium 9.6 mg/dL (8.5-10.1); Carbon Dioxide 29.2 mmol/L (21.0-32.0); Chloride 103 mmol/L (98-107); Estimated GFR (African America 51 (>=60); Estimated GFR (Non-African Ame 42 (>=60); Globulin 4.2 g/dL; Glucose 171 mg/dL (74-106); Potassium 4.2 mmol/L (3.5-5.1); Sodium 138 mmol/L (136-145); Total Protein 6.5 g/dL (6.4-8.2); Troponin I High Sensitivity 7.6 pg/mL (4.0-76.1)
[2023-05-14 23:52] VITALS: BP 122/94; PULSE 106; RESP 18; O2SAT 94
--- NOTE | 2023-05-14 23:56 | PC.NURSE ---
Has G-tube in place. Takes no oral food or liquid. Daughter states today vomited tube feeding
[2023-05-15] VITALS (18 sets, daily range): BP systolic 114–167; BP diastolic 42–64; PULSE 72–94; RESP 16–24; TEMP 36.6–37.6; O2SAT 92–99; BMI 18.9
[2023-05-15 00:47] LABS: Bilirubin Urine NEGATIVE (NEGATIVE); Blood Urine MODERATE (NEGATIVE); Clarity Urine CLEAR (CLEAR); Color Urine YELLOW (YELLOW); Glucose Urine UA NEGATIVE (NEGATIVE); Ketones Urine NEGATIVE (NEGATIVE); Leukocyte Esterase Urine NEGATIVE (NEGATIVE); Nitrite Urine NEGATIVE (NEGATIVE); Protein Urine >=300 mg/dL (NEG/TRACE); Urobilinogen Urine 0.2 EU/dL (0.2-1.0)
[2023-05-15] MEDS: CEFTRIAXONE 1,000 MG in 0.9 % SODIUM CHLORIDE 50 ML 100 MG IV (00:47)
[2023-05-15 00:48] LABS: Urine Microscopic Indicated YES
[2023-05-15 01:00] LABS: Bacteria Urine MODERATE #/HPF (NONE SEEN); Cast Seen? NONE SEEN #/LPF (NONE SEEN); Crystals Seen? None Seen #/HPF (None Seen); Mucus Urine NONE SEEN (NONE SEEN); Squamous Epithelial Cell Urine NONE SEEN #/LPF (NONE/RARE); Urine Culture Indicated YES
--- OUTSIDE RECORDS SUMMARY | 2023-05-15 01:28 | XMS_ITS | CCD ---
Author Name Unknown Address [address] [place] [address] Organization [facility] Care Team Providers Care R&D Lab Technician Name Role Phone PHYSICIAN, DEFAULT Unavailable Unavailable PHYSICIAN, DEFAULT Unavailable Unavailable Micheal Gutiérrez Unavailable Unavailable Unavailable Micheal Gutiérrez MD Primary Care Provider [phone] Micheal Gutiérrez MD Primary Care Provider [phone] Unavailable Unavailable MD Micheal Gutiérrez Primary Care Provider [phone] MD Bret Guzmanwv Attending Provider Micheal Gutiérrez MD Primary Care Provider [phone] Micheal Gutiérrez MD Primary Care Provider [phone] MICHEAL GUTIÉRREZ Primary Care Unavailable IDRIS HAWK [...] MICHEAL GUTIÉRREZ M Primary Care Unavailable SHANNA HANSEL Attending Unavailable GUAN, BILLIE A Attending Unavailabl e MICHEAL GUTIÉRREZ Primary Care Unavailable MICHEAL GUTIÉRREZ Primary Care Unavailable ROTENBERG, PETER Attending Unavailable KWFELA SHOEMAKER Admitting Unavailable HALKER .DEVON Consulting Unavailable LAKSHMIPATHY ., MYNOR Attending Diann vailable LAKSHMIPATHY ., MYNOR Admitting Diann vailable HOY ., DR BURTON Primary Care Unavailable LAKSHMIPATHY ., MYNOR Attending [...] BRAUN Consulting Unavailab leslie MCGOVERN ., DR MLUTANI Admitting Unavailable HAY ., DR MULTANI Attending Unavailable HOY ., DR BURTON Primary Care Unavailable ENRICO ., PRIYA MOLINA Consulting UnavailINGA Barragan Consulting Unavailable ZIEBER, DR DARIAN Taylor Consulting Unavailable PAY ., DR CASE Admitting Unavailable PAY ., DR CASE Attending Unavailable HOY ., DR BUROTN Primary Care Unavailable PAY ., DR CASE [...] DR BURTON Admitting Unavailable HOY ., DR BUTRON Attending Unavailable HOY ., DR BURTON Primary Care Unavailable HOY ., DR BURTON Attending Unavailable HOY ., DR BURTON Admitting Unavailable HOY ., DR BURTON Consulting Unavailable [employer], DR YENIFER Puckett Consulting Unavailable HOY ., [...] Unavailable MD Micheal Gutiérrez Primary Care Provider [phone] MD Shukri Francisco Emergency Provider DO Jean-Pierre Otero Admit Provider [phone] DO Jean-Pierre Otero Attending Provider Micheal Gutiérrez [...] Unavailable Micheal Gutiérrez MD Primary Care Provider [phone] Lauro Collins Attending Unava robb [...] Gutiérrez, Dr. Micheal Floyd Primary Care Unavail rex Collins, Dr. Lauro Tang Attending Nina Collins, Dr. Lauro Tang Referring Nina Gutiérrez, Dr. Micheal Floyd Primary Care Unavail able Allergies Allergy Classification Reported Allergen(s) Allergy Type Date of Onset Reaction(s) Facility (14 sources) diphenhydrAMINE; Translations: [diphenhydrAMINE] Drug Allergy [facility] y 250 DO Work Phone: (20 sources) Ticagrelor; Translations: [Brilinta TABS] Drug Allergy 2 Shortness of Breath [facility] (9 sources) Angiotensin Converting Enzyme (Jennifer) Inhibitors; Translations: [JENNIFER Inhibitors] Allergy to drug (finding) Hypotension [facility] y 250 DO Work Phone: (1 source) Ticagrelor; Translations: [TICAGRELOR] Drug Allergy 2 [facility] Repository (5 sources) Aspirin; Translations: [Aspirin TABS] Drug Allergy Other [facility] y 250 DO Work Phone: (1 source) diphenhydrAMINE Drug Allergy 3 [facility] Repository Medications Current Medications Medication Drug [...] Comment on above: Take 1 capsule by [facility] twice daily for 7 days. spironolactone 25 [...] Comment on above: Take 1 tablet by [facility] twice daily. 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5) Diabetes mellitus (250.00) (E11.9) Current smoker (305.1) (F17.200) 1 ppd History of throat cancer (V10.02) (Z85.819) COPD (chronic obstructive pulmonary disease) (496) (J44.9) History of PA (myocardial infarction) (412) (I25.2) History of MRSA infection (V12.04) (Z86.14) Orders Body mass index (BMI) of 19.9 or less in adult Healthy Weight Tips; Status:Complete - Retrospective Authorization; Done: [id number] CHF (NYHA class II, ACC/AHA stage C), Health Maintenance, History of PA (myocardial infarction), Ischemic cardiomyopathy Renew: dilTIAZem HCl ER 60 MG Oral Capsule Extended Release 12 Hour; TAKE 0.5 CAPSULE Twice daily CHF (NYHA class II, ACC/AHA stage C), History of PA (myocardial infarction), History of PTCA Renew: Eliquis 5 MG Oral Tablet; Take 1 tablet twice daily CHF (NYHA class II, ACC/AHA stage C), Paroxysmal atrial fibrillation Renew: Carvedilol 12.5 MG Oral Tablet; TAKE 1/2 TABLET TWICE DAILY 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 You may also call [phone] GardnerNOW for free resources and assistance.; Status:Complete - Retrospective Authorization; Done: [id number] Tobacco Use Screening; Status:Complete; Done: [id number] Patient Instructions Please bring all medicines, vitamins, [...] hospitalizations over the past 6 months at [facility] for shortness of breath, dyspnea, A-fib, dehydration with hyperkalemia. He has known history of ASHD with ischemic cardiomyopathy with improved left ventricular function per last measurement by echo with ejection fraction up to 45 to 50%. 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 Cardizem SR 60 MG CP121/2 tab twice daily Carvedilol 12.5 MG Oral TabletTAKE 1/2 TABLET TWICE DAILY. Constulose [id number] in moring Eliquis 5 MG Oral TabletTake [...] 09/11/2021 9:51 (more content not included)... Normal [employer] Tobacco Screening.on 023 Fall risk assessment b) One or more fall s in the last year [facility] 250 DO Work Phone: Tobacco use status [facility] a) Yes [facility] 250 DO Work Phone: Tobacco Screening. Yes [facility] marika 250 DO Work Phone: Lab Reportson 01-01-2023 Lab Reports [id number]#1.00CD:127 [facility] Lab Reports [id number]#1.00CD:127 [facility] Lab Reports [id number]#1.00CD:127 [facility] Lab Reports [id number]#1.00CD:127 [facility] Lab Reports [id number]#1.00CD:127 [facility] Lab Reports [id number]#1.00CD:127 [facility] Lab Reports [id number]#1.00CD:127 [facility] Lab Reports [id number]#1.00CD:127 [facility] Lab Reports [id number]#1.00CD:127 [facility] Lab Reports [id number]#1.00CD:127 [facility] Lab Reportson 12-21-2022 Lab Reports [id number]#1.00CD:127 [facility] Lab Reports [id number]#1.00CD:127 [facility] Lab Reports [id number]#1.00CD:127 [facility] Lab Reports [id number]#1.00CD:127 Normal [facility] Lab Reports [id number]#1.00CD:127 Normal [facility] Lab Reports [id number]#1.00CD:127 Normal [facility] Lab Reports [id number]#1.00CD:127 Normal [facility] Lab Reports [id number]#1.00CD:127 [facility] Lab Reports [id number]#1.00CD:127 Normal [facility] Lab Reports [id number]#1.00CD:127 Normal [facility] Lab Reports [id number]#1.00CD:127 Normal [facility] Basic Metabolic Panelon 11-21 Anion gap [Moles/Vol] Not performed Normal 6.0-15.0 [facility] Comment on above: Performed By: #### M G, TSH3, CBC, DIFF CBC, PT, PTT, CMP #### [facility] [address] [place] [id number] [place] Calcium [Mass/Vol] 8.7 mg/dL Normal 8.6-10.3 [facility] Comment on above: Performed By: #### M G, TSH3, CBC, DIFF CBC, PT, PTT, CMP #### [facility] [address] [place] [address] [place] Chloride [Moles/Vol] 102 mmol/L Normal 98-107 [facility] Comment on above: Performed By: #### M G, TSH3, CBC, DIFF CBC, PT, PTT, CMP #### [facility] [address] [place] [address] [place] CO2 [Moles/Vol] 27.9 mmol/L Normal 21.0-31.0 [facility] Comment on above: Performed By: #### M G, TSH3, CBC, DIFF CBC, PT, PTT, CMP #### [facility] [address] Creatinine [Mass/Vol] 0.93 mg/dL Normal 0.70-1.30 [facility] Comment on above: Performed By: #### M G, TSH3, CBC, DIFF CBC, PT, PTT, CMP #### [facility] [address] [place] [address] [place] Creatinine Clr Calc Pharmacy 55.82 [facility] Comment on above: Performed By: #### M G, TSH3, CBC, DIFF CBC, PT, PTT, CMP #### [facility] [address] [place] [address] [place] GFR/1.73 sq M.predicted MDRD (S/P/Bld) [Vol rate/Area] mL/min/{1.73_m2} [facility] Comment on above: Performed By: #### M G, TSH3, CBC, DIFF CBC, PT, PTT, CMP #### [facility] [address] Glucose [Mass/Vol] 173 mg/dL Significant change up 70-100 [facility] Comment on above: Result Comment: [facility] Glucose Reference Range is dependent on time and content of last meal. Glucose of more than 200 mg/dL in a nonstressed, ambulatory subject supports the diagnosis of Diabetes Mellitus. ADA recommended reference range Performed By: #### M G, TSH3, CBC, DIFF CBC, PT, PTT, CMP #### [facility] [address] Potassium Normal 3.5-5.1 [facility] Comment on above: Result Comment: Spec imen hemolyzed, redraw requested Performed By: #### M G, TSH3, CBC, DIFF CBC, PT, PTT, CMP #### [facility] [address] Sodium [Moles/Vol] 136 mmol/L Normal 136-145 [facility] Comment on above: Performed By: #### M G, TSH3, CBC, DIFF CBC, PT, PTT, CMP #### [facility] [address] [place] [address] Urea nitrogen [Mass/Vol] 47 mg/dL High 7-25 [facility] Comment on above: Performed By: #### M G, TSH3, CBC, DIFF CBC, PT, PTT, CMP #### [facility] [address] [place] [address] [place] Diff and CBCon 11-30-2022 Basophils/100 WBC (Bld) 0 % Normal 0-2 [facility] Comment on above: Performed By: #### M G, TSH3, CBC, DIFF CBC, PT, PTT, CMP #### [address] Eosinophils/100 WBC (Bld) 0 % Low 1-3 [facility] Comment on above: Performed By: #### M G, TSH3, CBC, DIFF CBC, PT, PTT, CMP #### [address] Erythrocyte distribution width (RBC) [Ratio] 13.4 % Normal 12.0-14.8 [facility] Comment on above: Performed By: #### M G, TSH3, CBC, DIFF CBC, PT, PTT, CMP #### [address] Hematocrit (Bld) [Volume fraction] 33.4 % Low 38.8-50.0 [facility] Comment on above: Performed By: #### M G, TSH3, CBC, DIFF CBC, PT, PTT, CMP #### [address] Hemoglobin (Bld) [Mass/Vol] 11.3 g/dL Low 13.0-17.0 [facility] Comment on above: Performed By: #### M G, TSH3, CBC, DIFF CBC, PT, PTT, CMP #### [place] [address] [place] Lymphocytes/100 WBC (Bld) 13 % Low 18-42 [facility] Comment on above: Performed By: #### M G, TSH3, CBC, DIFF CBC, PT, PTT, CMP #### [address] MCH (RBC) [Entitic mass] 31.2 pg Normal 27.5-35.2 [facility] Comment on above: Performed By: #### M G, TSH3, CBC, DIFF CBC, PT, PTT, CMP #### [address] MCV (RBC) [Entitic vol] 92.4 fL Normal 83.5-101 [facility] Comment on above: Performed By: #### M G, TSH3, CBC, DIFF CBC, PT, PTT, CMP #### [address] Mean Corpuscular HGB Conc 33.7 g/dL Normal 32.5-35.6 [facility] Comment on above: Performed By: #### M G, TSH3, CBC, DIFF CBC, PT, PTT, CMP #### [address] Microcytosis Slight Normal [facility] Comment on above: Performed By: #### M G, TSH3, CBC, DIFF CBC, PT, PTT, CMP #### [address] Monocytes/100 WBC (Bld) 5 % Normal 2-11 [facility] Comment on above: Performed By: #### M G, TSH3, CBC, DIFF CBC, PT, PTT, CMP #### [address] Ovalocytes Slight Normal [facility] Comment on above: Performed By: #### M G, TSH3, CBC, DIFF CBC, PT, PTT, CMP #### [address] Platelet Estimate Normal Normal Normal [facility] Comment on above: Result Comment: --- 11/30/22 0728 --- Plt Est previously reported as: Decreased Performed By: #### M G, TSH3, CBC, DIFF CBC, PT, PTT, CMP #### [address] Platelet mean volume (Bld) [Entitic vol] 8.7 fL Normal 6.6-10.1 [facility] Comment on above: Result Comment: PERF ORMED BY: [place] [address] PATHOLOGIST CLEAN[employer]KEEP[employer] TRINA GARCIA M.D. Performed By: #### M G, TSH3, CBC, DIFF CBC, PT, PTT, CMP #### [address] Platelet Morphology Normal Normal Normal [facility] Comment on above: Result Comment: PERF ORMED BY: [place] [address] PATHOLOGIST CLEANER [employer]SEKEEP[employer] TRINA GARCIA M.D. Performed By: #### M G, TSH3, CBC, DIFF CBC, PT, PTT, CMP #### [address] Platelets (Bld) [#/Vol] 216 10*3/uL Normal 150-450 [facility] Comment on above: Performed By: #### M G, TSH3, CBC, DIFF CBC, PT, PTT, CMP #### [address] RBC (Bld) [#/Vol] 3.61 10*6/uL Low 3.90-5.60 [facility] Comment on above: Performed By: #### M G, TSH3, CBC, DIFF CBC, PT, PTT, CMP #### [address] Schistocytes Slight Normal [facility] Comment on above: Performed By: #### M G, TSH3, CBC, DIFF CBC, PT, PTT, CMP #### [address] Segmented neutrophils/100 WBC (Bld) 82 % High 50-70 [facility] Comment on above: Performed By: #### M G, TSH3, CBC, DIFF CBC, PT, PTT, CMP #### [address] WBC (Bld) [#/Vol] 13.3 10*3/uL High 4.1-10.5 [facility] Comment on above: Performed By: #### M G, TSH3, CBC, DIFF CBC, PT, PTT, CMP #### [facility] [address] Magnesiumon 11-30-2022 Magnesium [Mass/Vol] 2.1 mg/dL Normal 1.9-2.7 [facility] Comment on above: Result Comment: PERF ORMED BY: [place] [address] PATHOLOGIST CLEANER [employer]KEEP[employer] TRINA GARCIA M.D. Performed By: #### M G, TSH3, CBC, DIFF CBC, PT, PTT, CMP #### [address] Redraw Potassiumon Potassium [Moles/Vol] 4.5 mmol/L Normal 3.5-5.1 [facility] Comment on above: Order Comment: SPECI MEN HEMOLYZED, NOTIFIED HERMELINDA Result Comment: PERF ORMED BY: [place] [address] PATHOLOGIST CLEANER [employer]SEKEEPING TRINA GARCIA M.D. Performed By: #### M G, TSH3, CBC, DIFF CBC, PT, PTT, CMP #### [address] B-Type Natriuretic Peptideon 11-29-2022 Natriuretic peptide B (Bld) [Mass/Vol] 213.0 pg/mL High 5-100 [facility] Comment on above: Result Comment: PERF ORMED BY: [place] [address] PATHOLOGIST CLEANER [employer]KEEP[employer] TRINA GARCIA M.D. Performed By: #### M G, TSH3, CBC, DIFF CBC, PT, PTT, CMP #### [facility] [address] Basic Metabolic Panelon 07-0 Anion gap [Moles/Vol] 9.3 mmol/L Normal 6.0-15.0 [facility] Comment on above: Performed By: #### M G, TSH3, CBC, DIFF CBC, PT, PTT, CMP #### [facility] [address] Calcium [Mass/Vol] 8.9 mg/dL Normal 8.6-10.3 [facility] Comment on above: Performed By: #### M G, TSH3, CBC, DIFF CBC, PT, PTT, CMP #### [facility] [address] Chloride [Moles/Vol] 103 mmol/L Normal 98-107 [facility] Comment on above: Performed By: #### M G, TSH3, CBC, DIFF CBC, PT, PTT, CMP #### [facility] [address] CO2 [Moles/Vol] 28.1 mmol/L Normal 21.0-31.0 [facility] Comment on above: Performed By: #### M G, TSH3, CBC, DIFF CBC, PT, PTT, CMP #### [facility] [address] Creatinine [Mass/Vol] 0.91 mg/dL Normal 0.70-1.30 [facility] Comment on above: Performed By: #### M G, TSH3, CBC, DIFF CBC, PT, PTT, CMP #### [facility] [address] Creatinine Clr Calc Pharmacy 57.05 [facility] Comment on above: Performed By: #### M G, TSH3, CBC, DIFF CBC, PT, PTT, CMP #### [facility] [address] [place] [address] [place] GFR/1.73 sq M.predicted MDRD (S/P/Bld) [Vol rate/Area] mL/min/{1.73_m2} [facility] Comment on above: Performed By: #### M G, TSH3, CBC, DIFF CBC, PT, PTT, CMP #### [address] Glucose [Mass/Vol] 293 mg/dL High 70-100 [facility] Comment on above: Result Comment: [place] Glucose Reference Range is dependent on time and content of last meal. Glucose of more than 200 mg/dL in a nonstressed, ambulatory subject supports the diagnosis of Diabetes Mellitus. ADA recommended reference range Performed By: #### M G, TSH3, CBC, DIFF CBC, PT, PTT, CMP #### [address] Potassium [Moles/Vol] 4.4 mmol/L Normal 3.5-5.1 [facility] Comment on above: Performed By: #### M G, TSH3, CBC, DIFF CBC, PT, PTT, CMP #### [address] Sodium [Moles/Vol] 136 mmol/L Normal 136-145 [facility] Comment on above: Performed By: #### M G, TSH3, CBC, DIFF CBC, PT, PTT, CMP #### [address] Urea nitrogen [Mass/Vol] 41 mg/dL High 7-25 [facility] Comment on above: Performed By: #### M G, TSH3, CBC, DIFF CBC, PT, PTT, CMP #### [address] Complete Blood Count Auto Di ffon 11-29-2022 Basophils (Bld) [#/Vol] 0.0 10*3/uL Normal 0.0-0.2 [facility] Comment on above: Result Comment: PERF ORMED BY: [place] [address] PATHOLOGIST CLEANER [employer]KEEP[employer] TRINA GARCIA M.D. Performed By: #### M G, TSH3, CBC, DIFF CBC, PT, PTT, CMP #### [address] Basophils/100 WBC (Bld) 0.1 % Normal . [facility] Comment on above: Performed By: #### M G, TSH3, CBC, DIFF CBC, PT, PTT, CMP #### [address] Eosinophils (Bld) [#/Vol] 0.0 10*3/uL Normal 0.0-0.45 [facility] Comment on above: Performed By: #### M G, TSH3, CBC, DIFF CBC, PT, PTT, CMP #### [address] Eosinophils/100 WBC (Bld) 0.0 % Normal . [facility] Comment on above: Performed By: #### M G, TSH3, CBC, DIFF CBC, PT, PTT, CMP #### [address] Erythrocyte distribution width (RBC) [Ratio] 13.3 % Normal 12.0-14.8 [facility] Comment on above: Performed By: #### M G, TSH3, CBC, DIFF CBC, PT, PTT, CMP #### [address] Hematocrit (Bld) [Volume fraction] 34.5 % Low 38.8-50.0 [facility] Comment on above: Performed By: #### M G, TSH3, CBC, DIFF CBC, PT, PTT, CMP #### [address] Hemoglobin (Bld) [Mass/Vol] 11.6 g/dL Low 13.0-17.0 [facility] Comment on above: Performed By: #### M G, TSH3, CBC, DIFF CBC, PT, PTT, CMP #### [address] Lymphocytes (Bld) [#/Vol] 0.6 10*3/uL Low 1.00-4.8 [facility] Comment on above: Performed By: #### M G, TSH3, CBC, DIFF CBC, PT, PTT, CMP #### [address] Lymphocytes/100 WBC (Bld) 4.1 % Normal . [facility] Comment on above: Performed By: #### M G, TSH3, CBC, DIFF CBC, PT, PTT, CMP #### [address] MCH (RBC) [Entitic mass] 31.0 pg Normal 27.5-35.2 [facility] Comment on above: Performed By: #### M G, TSH3, CBC, DIFF CBC, PT, PTT, CMP #### [address] MCV (RBC) [Entitic vol] 92.6 fL Normal 83.5-101 [facility] Comment on above: Performed By: #### M G, TSH3, CBC, DIFF CBC, PT, PTT, CMP #### [address] Mean Corpuscular HGB Conc 33.5 g/dL Normal 32.5-35.6 [facility] Comment on above: Performed By: #### M G, TSH3, CBC, DIFF CBC, PT, PTT, CMP #### [address] Monocytes (Bld) [#/Vol] 0.7 10*3/uL Normal 0.0-0.8 [facility] Comment on above: Performed By: #### M G, TSH3, CBC, DIFF CBC, PT, PTT, CMP #### [address] Monocytes/100 WBC (Bld) 4.8 % Normal . [facility] Comment on above: Performed By: #### M G, TSH3, CBC, DIFF CBC, PT, PTT, CMP #### [address] Neutrophils (Bld) [#/Vol] 13.2 10*3/uL High 1.8-7.7 [facility] Comment on above: Performed By: #### M G, TSH3, CBC, DIFF CBC, PT, PTT, CMP #### [address] Neutrophils/100 WBC (Bld) 91.0 % Normal . [facility] Comment on above: Performed By: #### M G, TSH3, CBC, DIFF CBC, PT, PTT, CMP #### [address] NRBC% 0.0 /100{WBC} Normal 0-0.5 [facility] Comment on above: Performed By: #### M G, TSH3, CBC, DIFF CBC, PT, PTT, CMP #### [address] Platelet mean volume (Bld) [Entitic vol] 8.4 fL Normal 6.6-10.1 [facility] Comment on above: Performed By: #### M G, TSH3, CBC, DIFF CBC, PT, PTT, CMP #### [address] Platelets (Bld) [#/Vol] 219 10*3/uL Normal 150-450 [facility] Comment on above: Performed By: #### M G, TSH3, CBC, DIFF CBC, PT, PTT, CMP #### [address] RBC (Bld) [#/Vol] 3.72 10*6/uL Low 3.90-5.60 [facility] Comment on above: Performed By: #### M G, TSH3, CBC, DIFF CBC, PT, PTT, CMP #### [address] WBC (Bld) [#/Vol] 14.5 10*3/uL High 4.1-10.5 [facility] Comment on above: Performed By: #### M G, TSH3, CBC, DIFF CBC, PT, PTT, CMP #### [address] Magnesiumon 11-29-2022 Magnesium [Mass/Vol] 2.0 mg/dL Normal 1.9-2.7 [facility] Comment on above: Result Comment: PERF ORMED BY: [place] [id number] PATHOLOGIST CLE[employer] TRINA GARCIA M.D. Performed By: #### M G, TSH3, CBC, DIFF CBC, PT, PTT, CMP #### [place] [id number] [facility] Glucose Poct Glucometerson 0 11-28-2022 Commemt1 Glu2: Cleaned Meter Normal [facility] Comment on above: Result Comment: PERF ORMED BY: [place] [address] PATHOLOGIST CLE[employer] TRINA GARCIA M.D. Performed By: #### M G, TSH3, CBC, DIFF CBC, PT, PTT, CMP #### [place] [id number] [facility] Glucose [Mass/Vol] 392 mg/dL Normal [facility] Comment on above: Result Comment: [facility] Glucose Reference Range is dependent on time and content of last meal. Glucose of more than 200 mg/dL in a nonstressed, ambulatory subject supports the diagnosis of Diabetes Mellitus. Performed By: #### M G, TSH3, CBC, DIFF CBC, PT, PTT, CMP #### [address] [address] [facility] Glucose [Mass/Vol] 222 mg/dL Normal [facility] Comment on above: Result Comment: [facility] Glucose Reference Range is dependent on time and content of last meal. Glucose of more than 200 mg/dL in a nonstressed, ambulatory subject supports the diagnosis of Diabetes Mellitus. PERFORMED BY: [place] [id number] PATHOLOGIST [employer] TRINA GARCIA M.D. Performed By: #### M G, TSH3, CBC, DIFF CBC, PT, PTT, CMP #### [place] [id number] [facility] Glucose [Mass/Vol] 322 mg/dL Normal [facility] Comment on above: Result Comment: [facility] Glucose Reference Range is dependent on time and content of last meal. Glucose of more than 200 mg/dL in a nonstressed, ambulatory subject supports the diagnosis of Diabetes Mellitus. PERFORMED BY: [place] [address] PATHOLOGIST [employer] TRINA GARCIA M.D. Performed By: #### M G, TSH3, CBC, DIFF CBC, PT, PTT, CMP #### [address] Basic Metabolic Panelon 070 Anion gap [Moles/Vol] 8.6 mmol/L Normal 6.0-15.0 [facility] Comment on above: Performed By: #### M G, TSH3, CBC, DIFF CBC, PT, PTT, CMP #### [address] Calcium [Mass/Vol] 8.3 mg/dL Low 8.6-10.3 [facility] Comment on above: Performed By: #### M G, TSH3, CBC, DIFF CBC, PT, PTT, CMP #### [address] Chloride [Moles/Vol] 105 mmol/L Normal 98-107 [facility] Comment on above: Performed By: #### M G, TSH3, CBC, DIFF CBC, PT, PTT, CMP #### [address] CO2 [Moles/Vol] 26.9 mmol/L Normal 21.0-31.0 [facility] Comment on above: Performed By: #### M G, TSH3, CBC, DIFF CBC, PT, PTT, CMP #### [address] Creatinine [Mass/Vol] 1.19 mg/dL Normal 0.70-1.30 [facility] Comment on above: Performed By: #### M G, TSH3, CBC, DIFF CBC, PT, PTT, CMP #### [facility] [address] [place] [address] [place] Creatinine Clr Calc Pharmacy 42.72 [facility] Comment on above: Result Comment: PERF ORMED BY: [place] [address] PATHOLOGIST [employer] TRINA GARCIA M.D. Performed By: #### M G, TSH3, CBC, DIFF CBC, PT, PTT, CMP #### [facility] [address] GFR/1.73 sq M.predicted MDRD (S/P/Bld) [Vol rate/Area] mL/min/{1.73_m2} [facility] Comment on above: Performed By: #### M G, TSH3, CBC, DIFF CBC, PT, PTT, CMP #### [facility] [address] Glucose [Mass/Vol] 102 mg/dL High 70-100 [facility] Comment on above: Result Comment: [facility] Glucose Reference Range is dependent on time and content of last meal. Glucose of more than 200 mg/dL in a nonstressed, ambulatory subject supports the diagnosis of Diabetes Mellitus. ADA recommended reference range Performed By: #### M G, TSH3, CBC, DIFF CBC, PT, PTT, CMP #### [facility] [address] Potassium [Moles/Vol] 4.5 mmol/L Normal 3.5-5.1 [facility] Comment on above: Performed By: #### M G, TSH3, CBC, DIFF CBC, PT, PTT, CMP #### [facility] [address] [place] [address] [place] Sodium [Moles/Vol] 136 mmol/L Significant change down 136-145 [facility] Comment on above: Performed By: #### M G, TSH3, CBC, DIFF CBC, PT, PTT, CMP #### [facility] [address] [place] [address] [place] Urea nitrogen [Mass/Vol] 50 mg/dL High 7-25 [facility] Comment on above: Performed By: #### M G, TSH3, CBC, DIFF CBC, PT, PTT, CMP #### [address] Complete Blood Count Auto Di ffon 11-27-2022 Basophils (Bld) [#/Vol] 0.0 10*3/uL Normal 0.0-0.2 [facility] Comment on above: Result Comment: PERF ORMED BY: [place] [address] PATHOLOGIST [employer] TRINA GARCIA M.D. Performed By: #### M G, TSH3, CBC, DIFF CBC, PT, PTT, CMP #### [address] Basophils/100 WBC (Bld) 0.1 % Normal . [facility] Comment on above: Performed By: #### M G, TSH3, CBC, DIFF CBC, PT, PTT, CMP #### [address] Eosinophils (Bld) [#/Vol] 0.0 10*3/uL Normal 0.0-0.45 [facility] Comment on above: Performed By: #### M G, TSH3, CBC, DIFF CBC, PT, PTT, CMP #### [address] Eosinophils/100 WBC (Bld) 0.0 % Normal . [facility] Comment on above: Performed By: #### M G, TSH3, CBC, DIFF CBC, PT, PTT, CMP #### [address] Erythrocyte distribution width (RBC) [Ratio] 13.7 % Normal 12.0-14.8 [facility] Comment on above: Performed By: #### M G, TSH3, CBC, DIFF CBC, PT, PTT, CMP #### [address] Hematocrit (Bld) [Volume fraction] 30.6 % Low 38.8-50.0 [facility] Comment on above: Performed By: #### M G, TSH3, CBC, DIFF CBC, PT, PTT, CMP #### [address] Hemoglobin (Bld) [Mass/Vol] 10.4 g/dL Low 13.0-17.0 [facility] Comment on above: Performed By: #### M G, TSH3, CBC, DIFF CBC, PT, PTT, CMP #### [address] Lymphocytes (Bld) [#/Vol] 0.7 10*3/uL Low 1.00-4.8 [facility] Comment on above: Performed By: #### M G, TSH3, CBC, DIFF CBC, PT, PTT, CMP #### [address] Lymphocytes/100 WBC (Bld) 4.1 % Normal . [facility] Comment on above: Performed By: #### M G, TSH3, CBC, DIFF CBC, PT, PTT, CMP #### [address] MCH (RBC) [Entitic mass] 31.6 pg Normal 27.5-35.2 [facility] Comment on above: Performed By: #### M G, TSH3, CBC, DIFF CBC, PT, PTT, CMP #### [address] MCV (RBC) [Entitic vol] 93.4 fL Normal 83.5-101 [facility] Comment on above: Performed By: #### M G, TSH3, CBC, DIFF CBC, PT, PTT, CMP #### [address] Mean Corpuscular HGB Conc 33.9 g/dL Normal 32.5-35.6 [facility] Comment on above: Performed By: #### M G, TSH3, CBC, DIFF CBC, PT, PTT, CMP #### [address] Monocytes (Bld) [#/Vol] 0.4 10*3/uL Normal 0.0-0.8 [facility] Comment on above: Performed By: #### M G, TSH3, CBC, DIFF CBC, PT, PTT, CMP #### [address] Monocytes/100 WBC (Bld) 2.0 % Normal . [facility] Comment on above: Performed By: #### M G, TSH3, CBC, DIFF CBC, PT, PTT, CMP #### [address] Neutrophils (Bld) [#/Vol] 16.8 10*3/uL High 1.8-7.7 [facility] Comment on above: Performed By: #### M G, TSH3, CBC, DIFF CBC, PT, PTT, CMP #### [address] Neutrophils/100 WBC (Bld) 93.8 % Normal . [facility] Comment on above: Performed By: #### M G, TSH3, CBC, DIFF CBC, PT, PTT, CMP #### [address] NRBC% 0.2 /100{WBC} Normal 0-0.5 [facility] Comment on above: Performed By: #### M G, TSH3, CBC, DIFF CBC, PT, PTT, CMP #### [address] Platelet mean volume (Bld) [Entitic vol] 8.2 fL Normal 6.6-10.1 [facility] Comment on above: Performed By: #### M G, TSH3, CBC, DIFF CBC, PT, PTT, CMP #### [place] [address] [place] Platelets (Bld) [#/Vol] 239 10*3/uL Normal 150-450 [facility] Comment on above: Performed By: #### M G, TSH3, CBC, DIFF CBC, PT, PTT, CMP #### [place] [address] [place] RBC (Bld) [#/Vol] 3.28 10*6/uL Low 3.90-5.60 [facility] Comment on above: Performed By: #### M G, TSH3, CBC, DIFF CBC, PT, PTT, CMP #### [facility] [address] [place] [address] [place] WBC (Bld) [#/Vol] 17.9 10*3/uL High 4.1-10.5 [facility] Comment on above: Performed By: #### M G, TSH3, CBC, DIFF CBC, PT, PTT, CMP #### [facility] [address] [place] [address] [facility] ECG 12 lead ECGon 11-27-2022 ECG 12 lead ECG [facility] Main [place] [address] [place] [address] Electrocardiograph Report Signed Patient: Franki Hernandez MR#: [id number] : 1940 Acct:[id number] Age/Sex: 82 / M ADM Date: 11/25/22 Loc: Room: [address] [place] [address] Type: ADM IN Attending Dr: Nelida Aquino [...] By David Cerda DO 11/27 1256 Normal [facility] Glucose Poct Glucometerson 0 11-27-2022 Glucose [Mass/Vol] 199 mg/dL Normal [facility] Comment on above: Result Comment: [place] [facility] Glucose Reference Range is dependent on time and content of last meal. Glucose of more than 200 mg/dL in a nonstressed, ambulatory subject supports the diagnosis of Diabetes Mellitus. PERFORMED BY: [address] [place] [address] PATHOLOGIST [employer] TRINA GARCIA M.D. Performed By: #### M G, TSH3, CBC, DIFF CBC, PT, PTT, CMP #### [place] [address] [place] Commemt1 [facility] Comment on above: Result Comment: Glu2 : WILL NOTIFY DR/RN Performed By: #### M G, TSH3, CBC, DIFF CBC, PT, PTT, CMP #### [place] [address] [place] Commemt2 Cleaned Meter Normal [facility] Comment on above: Result Comment: PERF ORMED BY: [facility] [address] [place] [address] PATHOLOGIST [employer] TRINA GARCIA M.D. Performed By: #### M G, TSH3, CBC, DIFF CBC, PT, PTT, CMP #### [place] [id number] [place] Glucose [Mass/Vol] 410 mg/dL Off scale high [facility] Comment on above: Result Comment: [place] [facility] Glucose Reference Range is dependent on time and content of last meal. Glucose of more than 200 mg/dL in a nonstressed, ambulatory subject supports the diagnosis of Diabetes Mellitus. Performed By: #### M G, TSH3, CBC, DIFF CBC, PT, PTT, CMP #### [facility] [address] [place] [address] [place] Glucose [Mass/Vol] 358 mg/dL Normal [facility] Comment on above: Result Comment: [place] Glucose Reference Range is dependent on time and content of last meal. Glucose of more than 200 mg/dL in a nonstressed, ambulatory subject supports the diagnosis of Diabetes Mellitus. PERFORMED BY: [place] [address] PATHOLOGIST [employer] TRINA GARCIA M.D. Performed By: #### M G, TSH3, CBC, DIFF CBC, PT, PTT, CMP #### [address] A1C with Estimated Average G karol 11-26-2022 Glucose [Mass/Vol] 183 mg/dL Normal [facility] Comment on above: Result Comment: PERF ORMED BY: [place] [address] PATHOLOGIST [employer] TRINA GARCIA M.D. Performed By: #### H S TROP, A1C WTH eA, SCAN CBC #### [address] HbA1c (Bld) [Mass fraction] 8.0 % High 4.3-5.6 [facility] Comment on above: Result Comment: Incr eased risk for diabetes: 5.7 - 6.4 diabetes: >6.4 glycemic control for adults with diabetes: <7.0 Performed By: #### H S TROP, A1C WTH eA, SCAN CBC #### [address] Basic Metabolic Panelon 07 Anion gap [Moles/Vol] 12.0 mmol/L Normal 6.0-15.0 [facility] Comment on above: Performed By: #### M G, TSH3, CBC, DIFF CBC, PT, PTT, CMP #### [place] [address] [place] Calcium [Mass/Vol] 8.3 mg/dL Low 8.6-10.3 [facility] Comment on above: Performed By: #### M G, TSH3, CBC, DIFF CBC, PT, PTT, CMP #### [address] Chloride [Moles/Vol] 108 mmol/L High 98-107 [facility] Comment on above: Performed By: #### M G, TSH3, CBC, DIFF CBC, PT, PTT, CMP #### [facility] [address] CO2 [Moles/Vol] 27.1 mmol/L Normal 21.0-31.0 [facility] Comment on above: Performed By: #### M G, TSH3, CBC, DIFF CBC, PT, PTT, CMP #### [facility] [address] Creatinine [Mass/Vol] 0.99 mg/dL Normal 0.70-1.30 [facility] Comment on above: Performed By: #### M G, TSH3, CBC, DIFF CBC, PT, PTT, CMP #### [address] Creatinine Clr Calc Pharmacy 47.90 [facility] Comment on above: Performed By: #### M G, TSH3, CBC, DIFF CBC, PT, PTT, CMP #### [address] GFR/1.73 sq M.predicted MDRD (S/P/Bld) [Vol rate/Area] mL/min/{1.73_m2} [facility] Comment on above: Performed By: #### M G, TSH3, CBC, DIFF CBC, PT, PTT, CMP #### [address] Glucose [Mass/Vol] 164 mg/dL Significant change up 70-100 [facility] Comment on above: Result Comment: [place] Glucose Reference Range is dependent on time and content of last meal. Glucose of more than 200 mg/dL in a nonstressed, ambulatory subject supports the diagnosis of Diabetes Mellitus. ADA recommended reference range Performed By: #### M G, TSH3, CBC, DIFF CBC, PT, PTT, CMP #### [address] Potassium [Moles/Vol] 5.1 mmol/L Normal 3.5-5.1 [facility] Comment on above: Performed By: #### M G, TSH3, CBC, DIFF CBC, PT, PTT, CMP #### [facility] [address] [place] [address] [place] Sodium [Moles/Vol] 142 mmol/L Normal 136-145 [facility] Comment on above: Performed By: #### M G, TSH3, CBC, DIFF CBC, PT, PTT, CMP #### [facility] [address] [place] [address] [place] Urea nitrogen [Mass/Vol] 37 mg/dL High - [facility] Comment on above: Performed By: #### M G, TSH3, CBC, DIFF CBC, PT, PTT, CMP #### [facility] [address] [place] [address] [facility] ECG 12 lead ECGon 11-26-2022 ECG 12 lead ECG [facility] [place] [address] Electrocardiograph Report Signed Patient: Franki Hernandez MR#: [id number] : 1940 Acct:[id number] Age/Sex: 82 / M ADM Date: 11/25/22 Loc: Room: [address] [place] [address] Type: ADM IN Attending Dr: Nelida Aquino [...] By David Cerda DO 11/26 1319 Normal [facility] ECG 12 lead ECG [facility] Main [place] [id number] Electrocardiograph Report Signed Patient: Franki Hernandez MR#: [id number] : 1940 Acct:[id number] Age/Sex: 82 / M ADM Date: 11/25/22 Loc: 3T Room: [address] [place] [address] Type: ADM IN Attending Dr: Nelida Aquino [...] Signed By David Cerda DO 11/27 1255 [facility] ECH echo transthoracicon [facility] echo transthoracic [facility] Main [address] [address] Echocardiogram Signed Patient: Franki Hernandez MR#: [id number] : 1940 Acct:[id number] Age/Sex: 82 / M ADM Date: 11/25/22 Loc: Room: [address] [place] [address] Type: ADM IN Attending Dr: Nelida Aquino MD Ordering Provider: Hermelinda Benitez APRN Date of Service: 11/26/2211/13/499 ECH/ECH echo transthoracic: a-fib rvr, elevated troponin Copies to: Saige Bassett MD, [facility] Hermelinda Benitez, [employer] Weight: 125 lb Performed By: JEANNA Solo [...] 11/26/22 1004 Signed By: Saige Bassett MD, [facility] 11/26/22 1704 [facility] Glucose Poct Glucometerson 0 11-26-2022 Commemt1 [facility] Comment on above: Result Comment: Glu2 : WILL NOTIFY DR/RN PERFORMED BY: [place] [address] PATHOLOGIST [employer] TRINA GARCIA M.D. Performed By: #### M G, TSH3, CBC, DIFF CBC, PT, PTT, CMP #### [address] Glucose [Mass/Vol] 477 mg/dL Off scale high [facility] Comment on above: Result Comment: [place] Glucose Reference Range is dependent on time and content of last meal. Glucose of more than 200 mg/dL in a nonstressed, ambulatory subject supports the diagnosis of Diabetes Mellitus. Performed By: #### M G, TSH3, CBC, DIFF CBC, PT, PTT, CMP #### [address] Glucose [Mass/Vol] 355 mg/dL Normal [facility] Comment on above: Result Comment: [place] Glucose Reference Range is dependent on time and content of last meal. Glucose of more than 200 mg/dL in a nonstressed, ambulatory subject supports the diagnosis of Diabetes Mellitus. PERFORMED BY: [place] [address] PATHOLOGIST [employer] TRINA GARCIA M.D. Performed By: #### M G, TSH3, CBC, DIFF CBC, PT, PTT, CMP #### [place] [address] [place] Glucose [Mass/Vol] 178 mg/dL Normal [facility] Comment on above: Result Comment: [place] Glucose Reference Range is dependent on time and content of last meal. Glucose of more than 200 mg/dL in a nonstressed, ambulatory subject supports the diagnosis of Diabetes Mellitus. PERFORMED BY: [place] [address] PATHOLOGIST [employer] TRINA GARCIA M.D. Performed By: #### M G, TSH3, CBC, DIFF CBC, PT, PTT, CMP #### [place] [address] [place] Glucose [Mass/Vol] 205 mg/dL Normal [facility] Comment on above: Result Comment: [facility] Glucose Reference Range is dependent on time and content of last meal. Glucose of more than 200 mg/dL in a nonstressed, ambulatory subject supports the diagnosis of Diabetes Mellitus. PERFORMED BY: [address] [place] [address] PATHOLOGIST [employer] TRINA GARCIA M.D. Performed By: #### M G, TSH3, CBC, DIFF CBC, PT, PTT, CMP #### [address] Magnesiumon 11-26-2022 Magnesium [Mass/Vol] 2.3 mg/dL Normal 1.9-2.7 [facility] Comment on above: Performed By: #### M G, TSH3, CBC, DIFF CBC, PT, PTT, CMP #### [address] Prealbuminon 11-26-2022 Prealbumin [Mass/Vol] 22.6 mg/dL Normal 17.0-34.0 [facility] Comment on above: Result Comment: PERF ORMED BY: [place] [address] PATHOLOGIST [employer] TRINA GARCIA M.D. Performed By: #### M G, TSH3, CBC, DIFF CBC, PT, PTT, CMP #### [address] Scan and CBCon 11-26-2022 Anisocytosis Ql (Bld) Slight Normal [facility] Comment on above: Performed By: #### H S TROP, A1C WTH eA, SCAN CBC #### [place] [address] [place] Basophils (Bld) [#/Vol] 0.0 10*3/uL Normal 0.0-0.2 [facility] Comment on above: Performed By: #### H S TROP, A1C WTH eA, SCAN CBC #### [place] [address] [place] Basophils/100 WBC (Bld) 0.1 % Normal . [facility] Comment on above: Performed By: #### H S TROP, A1C WTH eA, SCAN CBC #### [facility] [address] [place] [address] [place] Eosinophils (Bld) [#/Vol] 0.0 10*3/uL Normal 0.0-0.45 [facility] Comment on above: Performed By: #### H S TROP, A1C WTH eA, SCAN CBC #### [facility] [address] [place] [address] [place] Eosinophils/100 WBC (Bld) 0.0 % Normal . [facility] Comment on above: Performed By: #### H S TROP, A1C WTH eA, SCAN CBC #### [address] Erythrocyte distribution width (RBC) [Ratio] 13.5 % Normal 12.0-14.8 [facility] Comment on above: Performed By: #### H S TROP, A1C WTH eA, SCAN CBC #### [place] [address] [place] Hematocrit (Bld) [Volume fraction] 34.3 % Low 38.8-50.0 [facility] Comment on above: Performed By: #### H S TROP, A1C WTH eA, SCAN CBC #### [place] [address] [place] Hemoglobin (Bld) [Mass/Vol] 11.3 g/dL Low 13.0-17.0 [facility] Comment on above: Performed By: #### H S TROP, A1C WTH eA, SCAN CBC #### [facility] [address] [place] [address] [place] Lymphocytes (Bld) [#/Vol] 0.5 10*3/uL Low 1.00-4.8 [facility] Comment on above: Performed By: #### H S TROP, A1C WTH eA, SCAN CBC #### [facility] [address] [place] [address] [place] Lymphocytes/100 WBC (Bld) 3.8 % Normal . [facility] Comment on above: Performed By: #### H S TROP, A1C WTH eA, SCAN CBC #### [facility] [address] [place] [address] MCH (RBC) [Entitic mass] 31.0 pg Normal 27.5-35.2 [facility] Comment on above: Performed By: #### H S TROP, A1C WTH eA, SCAN CBC #### [facility] [address] [place] [address] MCV (RBC) [Entitic vol] 94.0 fL Normal 83.5-101 [facility] Comment on above: Performed By: #### H S TROP, A1C WTH eA, SCAN CBC #### [address] Mean Corpuscular HGB Conc 33.0 g/dL Normal 32.5-35.6 [facility] Comment on above: Performed By: #### H S TROP, A1C WTH eA, SCAN CBC #### [address] Microcytosis Slight Normal [facility] Comment on above: Performed By: #### H S TROP, A1C WTH eA, SCAN CBC #### [address] Monocytes (Bld) [#/Vol] 0.1 10*3/uL Normal 0.0-0.8 [facility] Comment on above: Performed By: #### H S TROP, A1C WTH eA, SCAN CBC #### [address] Monocytes/100 WBC (Bld) 0.7 % Normal . [facility] Comment on above: Performed By: #### H S TROP, A1C WTH eA, SCAN CBC #### [facility] [address] [place] [address] Neutrophils (Bld) [#/Vol] 12.1 10*3/uL High 1.8-7.7 [facility] Comment on above: Performed By: #### H S TROP, A1C WTH eA, SCAN CBC #### [address] Neutrophils/100 WBC (Bld) 95.4 % Normal . [facility] Comment on above: Performed By: #### H S TROP, A1C WTH eA, SCAN CBC #### [address] NRBC% 0.0 /100{WBC} Normal 0-0.5 [facility] Comment on above: Performed By: #### H S TROP, A1C WTH eA, SCAN CBC #### [address] Ovalocytes Slight Normal [facility] Comment on above: Performed By: #### H S TROP, A1C WTH eA, SCAN CBC #### [address] Platelet Estimate Normal Normal Normal [facility] Comment on above: Performed By: #### H S TROP, A1C WTH eA, SCAN CBC #### [address] Platelet mean volume (Bld) [Entitic vol] 8.2 fL Normal 6.6-10.1 [facility] Comment on above: Performed By: #### H S TROP, A1C WTH eA, SCAN CBC #### [address] Platelet Morphology Normal Normal Normal [facility] Comment on above: Result Comment: PERF ORMED BY: [place] [address] PATHOLOGIST [employer] TRINA GARCIA M.D. Performed By: #### H S TROP, A1C WTH eA, SCAN CBC #### [place] [address] [place] Platelets (Bld) [#/Vol] 229 10*3/uL Normal 150-450 [facility] Comment on above: Performed By: #### H S TROP, A1C WTH eA, SCAN CBC #### [place] [address] [place] RBC (Bld) [#/Vol] 3.65 10*6/uL Low 3.90-5.60 [facility] Comment on above: Performed By: #### H S TROP, A1C WTH eA, SCAN CBC #### [address] WBC (Bld) [#/Vol] 12.6 10*3/uL High 4.1-10.5 [facility] Comment on above: Performed By: #### H S TROP, A1C WTH eA, SCAN CBC #### [address] Troponin I High Sensitivityo n 11-26-2022 Troponin I High Sensitivity 19.7 pg/mL Normal 0.0-20.0 [facility] Comment on above: Result Comment: PERF ORMED BY: [place] [address] PATHOLOGIST [employer] TRINA GARCIA M.D. Performed By: #### H S TROP, A1C WTH eA, SCAN CBC #### [address] Troponin I High Sensitivity 24.1 pg/mL High 0.0-20.0 [facility] Comment on above: Result Comment: PERF ORMED BY: [place] [address] PATHOLOGIST [employer] TRINA GARCIA M.D. Performed By: #### M G, TSH3, CBC, DIFF CBC, PT, PTT, CMP #### [address] Urine Cultureon 11-26-2022 Bacteria identified Cx Nom (U) No Growth 2 Days PERFORMED BY: [place] [address] PATHOLOGIST [employer] TRINA GARCIA M.D. Normal [facility] Comment on above: Performed By: #### M G, TSH3, CBC, DIFF CBC, PT, PTT, CMP #### [address] Activated partial thrombopla stin time (aPTT) in platelet poor plasma by coagulation aOrdered By: Shukri Francisco on 11-25-2022 aPTT Coag (PPP) [Time] 23.3 s 25.1-36.5 [facility] Alanine aminotransferase [En zymatic activity/volume] in Serum or PlasmaOrdered By: Shukri Francisco on 11-25-2022 ALT [Catalytic activity/Vol] 9 U/L 7-52 [facility] Albumin [Mass/volume] in Ser um or Plasma by Bromocresol green (BCG) dye binding methoOrdered By: Shukri Francisco on 11-25-2022 Albumin BCG dye [Mass/Vol] 3.2 g/dL 3.5-5.7 [facility] Alkaline phosphatase [Enzyma tic activity/volume] in Serum or PlasmaOrdered By: Shukri Francisco on 11-25-2022 ALP [Catalytic activity/Vol] 114 U/L 34-104 [facility] Aspartate aminotransferase [ Enzymatic activity/volume] in Serum or PlasmaOrdered By: Shukri Francisco on 11-25-2022 AST [Catalytic activity/Vol] 11 U/L 13-39 [facility] Automated erythrocytes count in urine sediment (number/area)Ordered By: Shukri Francisco on 11-25-2022 RBC Auto (Urine sed) [#/Area] 0-1 [HPF] 0-4 [facility] Automated leukocytes count i n urine sediment (number/area)Ordered By: Shukri Francisco on 11-25-2022 WBC Auto (Urine sed) [#/Area] 0-1 [HPF] 0-4 [facility] B-Type Natriuretic Peptideon 11-25-2022 Natriuretic peptide B (Bld) [Mass/Vol] 194.0 pg/mL High 5-100 [facility] Comment on above: Result Comment: PERF ORMED BY: [place] [address] PATHOLOGIST [employer] TRINA GARCIA M.D. Performed By: #### M G, TSH3, CBC, DIFF CBC, PT, PTT, CMP #### [address] Band form neutrophils/100 WB C Manual cnt (Bld)Ordered By: Shukri Francisco on 11-25-2022 Band form neutrophils/100 WBC (Bld) 2 % 0-5 [facility] Basophils Auto (Bld) [#/Vol] Ordered By: Shukri Francisco on 11-25-2022 Basophils (Bld) [#/Vol] N/A [facility] Basophils/100 WBC Auto (Bld) Ordered By: Shukri Francisco on 11-25-2022 Basophils/100 WBC (Bld) N/A [facility] Basophils/100 WBC Manual cnt (Bld)Ordered By: Shukri Francisco on 11-25-2022 Basophils/100 WBC (Bld) 0 % 0-2 [facility] Bilirubin Test strip Ql (U)O rdered By: Shukri Francisco on 11-25-2022 Bilirubin Ql (U) Negative Negative [facility] Bilirubin.total [Mass/volume ] in Serum or PlasmaOrdered By: Shukri Francisco on 11-25-2022 Bilirubin [Mass/Vol] 0.5 mg/dL 0.3-1.0 [facility] Blood Cultureon 11-25-2022 Bacteria identified Cx Nom (Bld) NO GROWTH 5 DAYS PERFORMED BY: [place] [address] PATHOLOGIST [employer] TRINA GARCIA M.D. [facility] Comment on above: Performed By: #### M G, TSH3, CBC, DIFF CBC, PT, PTT, CMP #### [facility] [address] [place] [address] Bacteria identified Cx Nom (Bld) NO GROWTH 5 DAYS PERFORMED BY: [place] [address] PATHOLOGIST [employer] TRINA GARCIA M.D. [facility] Comment on above: Performed By: #### M G, TSH3, CBC, DIFF CBC, PT, PTT, CMP #### [facility] [address] [place] [address] [place] Calcium [Mass/volume] in Ser um or PlasmaOrdered By: Shukri Francisco on 11-25-2022 Calcium [Mass/Vol] 9.1 mg/dL 8.6-10.3 [facility] Carbon dioxide, total [Moles /volume] in Serum or PlasmaOrdered By: Shukri Francisco on 11-25-2022 CO2 [Moles/Vol] 27.0 mmol/L 21.0-31.0 [facility] Chloride [Moles/volume] in S lio or PlasmaOrdered By: Shukri Francisco on 11-25-2022 Chloride [Moles/Vol] 108 mmol/L 98-107 [facility] Color Auto (U)Ordered By: Allie Francisco on 11-25-2022 Color (U) Yellow Yellow [facility] Complete Blood Count Auto Di ffon 11-25-2022 Erythrocyte distribution width (RBC) [Ratio] 13.6 % Normal 12.0-14.8 [facility] Comment on above: Performed By: #### M G, TSH3, CBC, DIFF CBC, PT, PTT, CMP #### [facility] [address] Hematocrit (Bld) [Volume fraction] 39.9 % Normal 38.8-50.0 [facility] Comment on above: Performed By: #### M G, TSH3, CBC, DIFF CBC, PT, PTT, CMP #### [facility] [address] Hemoglobin (Bld) [Mass/Vol] 13.1 g/dL Normal 13.0-17.0 [facility] Comment on above: Performed By: #### M G, TSH3, CBC, DIFF CBC, PT, PTT, CMP #### [address] MCH (RBC) [Entitic mass] 31.0 pg Normal 27.5-35.2 [facility] Comment on above: Performed By: #### M G, TSH3, CBC, DIFF CBC, PT, PTT, CMP #### [address] MCV (RBC) [Entitic vol] 94.1 fL Normal 83.5-101 [facility] Comment on above: Performed By: #### M G, TSH3, CBC, DIFF CBC, PT, PTT, CMP #### [address] Mean Corpuscular HGB Conc 32.9 g/dL Normal 32.5-35.6 [facility] Comment on above: Performed By: #### M G, TSH3, CBC, DIFF CBC, PT, PTT, CMP #### [address] Platelet mean volume (Bld) [Entitic vol] 8.1 fL Normal 6.6-10.1 [facility] Comment on above: Result Comment: PERF ORMED BY: [place] [address] PATHOLOGIST [employer] TR[employer] GARCIA M.D. Performed By: #### M G, TSH3, CBC, DIFF CBC, PT, PTT, CMP #### [address] Platelets (Bld) [#/Vol] 278 10*3/uL Normal 150-450 [facility] Comment on above: Performed By: #### M G, TSH3, CBC, DIFF CBC, PT, PTT, CMP #### [address] RBC (Bld) [#/Vol] 4.24 10*6/uL Normal 3.90-5.60 [facility] Comment on above: Performed By: #### M G, TSH3, CBC, DIFF CBC, PT, PTT, CMP #### [address] WBC (Bld) [#/Vol] 21.8 10*3/uL High 4.1-10.5 [facility] Comment on above: Performed By: #### M G, TSH3, CBC, DIFF CBC, PT, PTT, CMP #### [facility] [address] Comprehensive Metabolic Pane uma 11-25-2022 Albumin [Mass/Vol] 3.2 g/dL Low 3.5-5.7 [facility] Comment on above: Performed By: #### M G, TSH3, CBC, DIFF CBC, PT, PTT, CMP #### [facility] [address] [place] [address] Albumin/Globulin [Mass ratio] 1.1 {ratio} Normal [facility] Comment on above: Performed By: #### M G, TSH3, CBC, DIFF CBC, PT, PTT, CMP #### [address] ALP [Catalytic activity/Vol] 114 U/L High 34-104 [facility] Comment on above: Performed By: #### M G, TSH3, CBC, DIFF CBC, PT, PTT, CMP #### [address] ALT [Catalytic activity/Vol] 9 U/L Normal 7-52 [facility] Comment on above: Performed By: #### M G, TSH3, CBC, DIFF CBC, PT, PTT, CMP #### [facility] [address] [place] [address] Anion gap [Moles/Vol] 11.0 mmol/L Normal 6.0-15.0 [facility] Comment on above: Performed By: #### M G, TSH3, CBC, DIFF CBC, PT, PTT, CMP #### [facility] [address] [place] [address] AST [Catalytic activity/Vol] 11 U/L Low 13-39 [facility] Comment on above: Performed By: #### M G, TSH3, CBC, DIFF CBC, PT, PTT, CMP #### [facility] [address] [place] [address] Bilirubin [Mass/Vol] 0.5 mg/dL Normal 0.3-1.0 [facility] Comment on above: Performed By: #### M G, TSH3, CBC, DIFF CBC, PT, PTT, CMP #### [address] Calcium [Mass/Vol] 9.1 mg/dL Normal 8.6-10.3 [facility] Comment on above: Performed By: #### M G, TSH3, CBC, DIFF CBC, PT, PTT, CMP #### [address] [place] [address] [place] Chloride [Moles/Vol] 108 mmol/L High 98-107 [facility] Comment on above: Performed By: #### M G, TSH3, CBC, DIFF CBC, PT, PTT, CMP #### [facility] [address] CO2 [Moles/Vol] 27.0 mmol/L Normal 21.0-31.0 [facility] Comment on above: Performed By: #### M G, TSH3, CBC, DIFF CBC, PT, PTT, CMP #### [facility] [address] Creatinine [Mass/Vol] 1.14 mg/dL Normal 0.70-1.30 [facility] Comment on above: Performed By: #### M G, TSH3, CBC, DIFF CBC, PT, PTT, CMP #### [address] Creatinine Clr Calc Pharmacy 41.45 [facility] Comment on above: Performed By: #### M G, TSH3, CBC, DIFF CBC, PT, PTT, CMP #### [facility] [address] GFR/1.73 sq M.predicted MDRD (S/P/Bld) [Vol rate/Area] mL/min/{1.73_m2} [facility] Comment on above: Performed By: #### M G, TSH3, CBC, DIFF CBC, PT, PTT, CMP #### [address] Globulin (S) [Mass/Vol] 3.0 g/dL [facility] Comment on above: Performed By: #### M G, TSH3, CBC, DIFF CBC, PT, PTT, CMP #### [address] Glucose [Mass/Vol] 54 mg/dL Low 70-100 [facility] Comment on above: Result Comment: [facility] Glucose Reference Range is dependent on time and content of last meal. Glucose of more than 200 mg/dL in a nonstressed, ambulatory subject supports the diagnosis of Diabetes Mellitus. ADA recommended reference range Performed By: #### M G, TSH3, CBC, DIFF CBC, PT, PTT, CMP #### [facility] [address] Potassium [Moles/Vol] 4.0 mmol/L Normal 3.5-5.1 [facility] Comment on above: Performed By: #### M G, TSH3, CBC, DIFF CBC, PT, PTT, CMP #### [facility] [address] Protein [Mass/Vol] 6.2 g/dL Low 6.4-8.9 [facility] Comment on above: Performed By: #### M G, TSH3, CBC, DIFF CBC, PT, PTT, CMP #### [facility] [address] Sodium [Moles/Vol] 142 mmol/L Normal 136-145 [facility] Comment on above: Performed By: #### M G, TSH3, CBC, DIFF CBC, PT, PTT, CMP #### [facility] [address] Urea nitrogen [Mass/Vol] 35 mg/dL High 7-25 [facility] Comment on above: Performed By: #### M G, TSH3, CBC, DIFF CBC, PT, PTT, CMP #### [facility] [address] [place] [address] Creatinine [Mass/volume] in Serum or PlasmaOrdered By: Shukri Francisco on 11-25-2022 Creatinine [Mass/Vol] 1.14 mg/dL 0.70-1.30 [facility] Diff and CBCon 11-25-2022 Band form neutrophils/100 WBC (Bld) 2 % Normal 0-5 [facility] Comment on above: Performed By: #### M G, TSH3, CBC, DIFF CBC, PT, PTT, CMP #### [facility] [address] [place] [address] [place] Basophils/100 WBC (Bld) 0 % Normal 0-2 [facility] Comment on above: Performed By: #### M G, TSH3, CBC, DIFF CBC, PT, PTT, CMP #### [facility] [address] [place] [address] [place] Eosinophils/100 WBC (Bld) 0 % Low 1-3 [facility] Comment on above: Performed By: #### M G, TSH3, CBC, DIFF CBC, PT, PTT, CMP #### [facility] [address] [place] [address] [place] Lymphocytes/100 WBC (Bld) 6 % Low 18-42 [facility] Comment on above: Performed By: #### M G, TSH3, CBC, DIFF CBC, PT, PTT, CMP #### [place] [address] [place] Metamyelocytes 1 % High 0-0 [facility] Comment on above: Performed By: #### M G, TSH3, CBC, DIFF CBC, PT, PTT, CMP #### [place] [address] [place] Monocytes/100 WBC (Bld) 19.98 % Normal 0.00-20.00 [facility] Comment on above: Result Comment: For adults in ED, MDW > 20.0 may be associated with a higher risk of sepsis during the first 12 hrs of hospital admission The predictive value of MDW for identifying sepsis in patients with hematological abnormalities has not been established Performed By: #### M G, TSH3, CBC, DIFF CBC, PT, PTT, CMP #### [facility] [address] [place] [address] [place] Monocytes/100 WBC (Bld) 2 % Normal 2-11 [facility] Comment on above: Performed By: #### M G, TSH3, CBC, DIFF CBC, PT, PTT, CMP #### [place] [address] [place] Myelocytes 4 % High 0-0 [facility] Comment on above: Performed By: #### M G, TSH3, CBC, DIFF CBC, PT, PTT, CMP #### [facility] [address] [place] [address] [place] Platelet Estimate Normal Normal Normal [facility] Comment on above: Performed By: #### M G, TSH3, CBC, DIFF CBC, PT, PTT, CMP #### [facility] [address] [place] [address] Platelet Morphology Normal Normal Normal [facility] Comment on above: Result Comment: PERF ORMED BY: [place] [address] PATHOLOGIST [employer] TRINA GARCIA M.D. Performed By: #### M G, TSH3, CBC, DIFF CBC, PT, PTT, CMP #### [facility] [address] [place] [address] RBC morphology finding Nom (Bld) Normal Normal Normal [facility] Comment on above: Performed By: #### M G, TSH3, CBC, DIFF CBC, PT, PTT, CMP #### [address] Segmented neutrophils/100 WBC (Bld) 85 % High 50-70 [facility] Comment on above: Performed By: #### M G, TSH3, CBC, DIFF CBC, PT, PTT, CMP #### [address] Dipstick and Microscopicon 0 11-25-2022 Appearance (U) Clear Normal Clear [facility] Comment on above: Order Comment: Name Collection Type:: Berry Catheter Performed By: #### M G, TSH3, CBC, DIFF CBC, PT, PTT, CMP #### [facility] [address] [place] [address] Bacteria,Urine None Seen Normal None Seen [facility] Comment on above: Order Comment: Name Collection Type:: Berry Catheter Performed By: #### M G, TSH3, CBC, DIFF CBC, PT, PTT, CMP #### [place] [address] [place] Bilirubin,Urine Negative Normal Negative [facility] Comment on above: Order Comment: Name Collection Type:: Berry Catheter Performed By: #### M G, TSH3, CBC, DIFF CBC, PT, PTT, CMP #### [address] [place] [address] [place] Color (U) Yellow Normal Yellow [facility] Comment on above: Order Comment: Name Collection Type:: Berry Catheter Performed By: #### M G, TSH3, CBC, DIFF CBC, PT, PTT, CMP #### [facility] [address] Glucose Ql (U) Normal Normal Normal [facility] Comment on above: Order Comment: Name Collection Type:: Berry Catheter Performed By: #### M G, TSH3, CBC, DIFF CBC, PT, PTT, CMP #### [facility] [address] Hyaline Casts,Urine 0-8 Normal 0-8 [facility] Comment on above: Order Comment: Name Collection Type:: Berry Catheter Result Comment: PERF ORMED BY: [place] [address] PATHOLOGIST [employer] TRINA GARCIA M.D. Performed By: #### M G, TSH3, CBC, DIFF CBC, PT, PTT, CMP #### [address] Ketones Ql (U) Trace High Negative [facility] Comment on above: Order Comment: Name Collection Type:: Berry Catheter Performed By: #### M G, TSH3, CBC, DIFF CBC, PT, PTT, CMP #### [address] Leukocyte esterase Test strip Ql (U) Negative Normal Negative [facility] Comment on above: Order Comment: Name Collection Type:: Berry Catheter Performed By: #### M G, TSH3, CBC, DIFF CBC, PT, PTT, CMP #### [place] [address] [place] Nitrite,Urine Negative Normal Negative [facility] Comment on above: Order Comment: Name Collection Type:: Berry Catheter Performed By: #### M G, TSH3, CBC, DIFF CBC, PT, PTT, CMP #### [address] Occult Blood,Urine Negative Normal Negative [facility] Comment on above: Order Comment: Name Collection Type:: Berry Catheter Result Comment: PERF ORMED BY: [place] [address] PATHOLOGIST [employer] TRINA GARCIA M.D. Performed By: #### M G, TSH3, CBC, DIFF CBC, PT, PTT, CMP #### [address] pH (U) 6.0 [pH] Normal 5.0-9.0 [facility] Comment on above: Order Comment: Name Collection Type:: Berry Catheter Performed By: #### M G, TSH3, CBC, DIFF CBC, PT, PTT, CMP #### [address] Protein (U) [Mass/Vol] 300 mg/dL High Negative [facility] Comment on above: Order Comment: Name Collection Type:: Berry Catheter Performed By: #### M G, TSH3, CBC, DIFF CBC, PT, PTT, CMP #### [address] RBC LM.HPF (Urine sed) [#/Area] 0 /[HPF] Normal 0-4 [facility] Comment on above: Order Comment: Name Collection Type:: Berry Catheter Performed By: #### M G, TSH3, CBC, DIFF CBC, PT, PTT, CMP #### [address] Specificy [place],Urine 1.024 Normal 1.001-1.030 [facility] Comment on above: Order Comment: Name Collection Type:: Berry Catheter Performed By: #### M G, TSH3, CBC, DIFF CBC, PT, PTT, CMP #### [place] [address] [place] Squamous Epithelial Cell,Urine 0-1 Normal 0-2 [facility] Comment on above: Order Comment: Name Collection Type:: Berry Catheter Performed By: #### M G, TSH3, CBC, DIFF CBC, PT, PTT, CMP #### [facility] [address] Urobilinogen,Urine Normal Normal Normal [facility] Comment on above: Order Comment: Name Collection Type:: Berry Catheter Performed By: #### M G, TSH3, CBC, DIFF CBC, PT, PTT, CMP #### [facility] [address] [place] [id number] [place] WBC LM.HPF (Urine sed) [#/Area] 0 /[HPF] Normal 0-4 [facility] Comment on above: Order Comment: Name Collection Type:: Berry Catheter Performed By: #### M G, TSH3, CBC, DIFF CBC, PT, PTT, CMP #### [facility] [address] ECG 12 lead ECGon 11-25-2022 ECG 12 lead ECG [facility] [place] [address] [place] [address] Electrocardiograph Report Signed Patient: Franki Hernandez MR#: [id number] : 1940 Acct:[id number] Age/Sex: 82 / M ADM Date: 11/25/22 Loc: ER Room: Type: [facility] ER Attending Dr: Ordering Provider: Shukri Francisco [...] Signed By Shukri Francisco MD 10/13 Normal [facility] Eosinophils Auto (Bld) [#/Vo l]Ordered By: Shukri Francisco on 11-25-2022 Eosinophils (Bld) [#/Vol] N/A [facility] Eosinophils/100 WBC Auto (Bl d)Ordered By: Shukri Francisco on 11-25-2022 Eosinophils/100 WBC (Bld) N/A [facility] Eosinophils/100 WBC Manual c nt (Bld)Ordered By: Shukri Francisco on 11-25-2022 Eosinophils/100 WBC (Bld) 0 % 1-3 [facility] Erythrocyte distribution wid th Auto (RBC) [Ratio]Ordered By: Shukri Francisco on 11-25-2022 Erythrocyte distribution width (RBC) [Ratio] 13.6 % 12.0-14.8 [facility] Free T4 (Free Thyroxine)on 0 11-25-2022 Free T4 [Mass/Vol] 1.31 ng/dL High 0.61-1.12 [facility] Comment on above: Result Comment: PERF ORMED BY: [place] [address] PATHOLOGIST [employer] TRINA GARCIA M.D. Performed By: #### M G, TSH3, CBC, DIFF CBC, PT, PTT, CMP #### [place] [address] [place] Globulin Calc (S) [Mass/Vol] Ordered By: Shukri Francisco on 11-25-2022 Globulin (S) [Mass/Vol] 3.0 g/dL [facility] Glucose Glucometer (BldC) [M ass/Vol]Ordered By: Jean-Pierre Otero on 11-25-2022 Glucose [Mass/Vol] 196 mg/dL [facility] Comment on above: Random Glucose Refer ence Range is dependent on time and content of last meal. Glucose of more than 200 mg/dL in a nonstressed, ambulatory subject supports the diagnosis of Diabetes Mellitus. Glucose Poct Glucometerson 0 11-25-2022 Glucose [Mass/Vol] 196 mg/dL Normal [facility] Comment on above: Result Comment: [place] Glucose Reference Range is dependent on time and content of last meal. Glucose of more than 200 mg/dL in a nonstressed, ambulatory subject supports the diagnosis of Diabetes Mellitus. PERFORMED BY: [facility] [address] [place] [address] PATHOLOGIST [employer] TRINA GARCIA M.D. Performed By: #### M G, TSH3, CBC, DIFF CBC, PT, PTT, CMP #### [facility] [address] Commemt1 Normal [facility] Comment on above: Result Comment: Glu2 : WILL NOTIFY DR/RN Performed By: #### M G, TSH3, CBC, DIFF CBC, PT, PTT, CMP #### [facility] [address] Commemt2 FOLLOW HYPOGLYCEMIC Normal [facility] Comment on above: Result Comment: PERF ORMED BY: [facility] [address] [place] [address] PATHOLOGIST [employer] TRINA GARCIA M.D. Performed By: #### M G, TSH3, CBC, DIFF CBC, PT, PTT, CMP #### [address] Glucose [Mass/Vol] 47 mg/dL Off scale low [facility] Comment on above: Result Comment: [place] [facility] Glucose Reference Range is dependent on time and content of last meal. Glucose of more than 200 mg/dL in a nonstressed, ambulatory subject supports the diagnosis of Diabetes Mellitus. Performed By: #### M G, TSH3, CBC, DIFF CBC, PT, PTT, CMP #### [facility] [address] [place] [address] Glucose [Mass/volume] in Ser um or PlasmaOrdered By: Shukri Francisco on 11-25-2022 Glucose [Mass/Vol] 54 mg/dL 70-100 [facility] Comment on above: ADA recommended refe rence rangeRandom Glucose Reference Range is dependent on time and content of last meal. Glucose of more than 200 mg/dL in a nonstressed, ambulatory subject supports the diagnosis of Diabetes Mellitus. Hematocrit Auto (Bld) [Volum e fraction]Ordered By: Shukri Francisco on 11-25-2022 Hematocrit (Bld) [Volume fraction] 39.9 % 38.8-50.0 [facility] Hemoglobin [Mass/volume] in BloodOrdered By: Shukri Francisco on 11-25-2022 Hemoglobin (Bld) [Mass/Vol] 13.1 g/dL 13.0-17.0 [facility] Ketones Auto test strip (U) [Mass/Vol]Ordered By: Shukri Francisco on 11-25-2022 Ketones (U) [Mass/Vol] Trace Negative [facility] Laboratory - CoagulationOrde red By: Shukri Francisco on 11-25-2022 PT Coag (PPP) [Time] 10.6 s 9.0-12.9 [facility] - UrinalysisOrder ed By: Shukri Francisco on 11-25-2022 Hyaline casts LM Ql (Urine sed) 0-8 [LPF] 0-8 [facility] Leukocytes [#/volume] correc oz for nucleated erythrocytes in Blood by Automated counOrdered By: Shukri Francisco on 11-25-2022 WBC corrected for nucl RBC Auto (Bld) [#/Vol] 21.8 10*3/uL 4.1-10.5 [facility] Lymphocytes Auto (Bld) [#/Vo l]Ordered By: Shukri Francisco on 11-25-2022 Lymphocytes (Bld) [#/Vol] N/A [facility] Lymphocytes/100 WBC Auto (Bl d)Ordered By: Shukri Francisco on 11-25-2022 Lymphocytes/100 WBC (Bld) N/A [facility] Lymphocytes/100 WBC Manual c nt (Bld)Ordered By: Shukri Francisco on 11-25-2022 Lymphocytes/100 WBC (Bld) 6 % 18-42 [facility] MCH Auto (RBC) [Entitic mass ]Ordered By: Shukri Francisco on 11-25-2022 MCH (RBC) [Entitic mass] 31.0 pg 27.5-35.2 [facility] MCHC Auto (RBC) [Mass/Vol]Or dered By: Shukri Francisco on 11-25-2022 MCHC (RBC) [Mass/Vol] 32.9 g/dL 32.5-35.6 [facility] MCV Auto (RBC) [Entitic vol] Ordered By: Shukri Francisco on 07-05-2023 MCV (RBC) [Entitic vol] 94.1 fL 83.5-101 [facility] Magnesiumon 11-25-2022 Magnesium [Mass/Vol] 1.7 mg/dL Low 1.9-2.7 [facility] Comment on above: Performed By: #### M G, TSH3, CBC, DIFF CBC, PT, PTT, CMP #### [facility] [address] Magnesium [Mass/volume] in S lio or PlasmaOrdered By: Shukri Francisco on 11-25-2022 Magnesium [Mass/Vol] 1.7 mg/dL 1.9-2.7 [facility] Metamyelocytes/100 WBC Manua l cnt (Bld)Ordered By: Shukri Francisco on 11-25-2022 Metamyelocytes/100 WBC (Bld) 1 % 0-0 [facility] Monocyte distribution width [Entitic volume] in Blood by AutomatedOrdered By: Shukri Francisco on 11-25-2022 Monocyte distribution width Auto (Bld) [Entitic vol] 19.98 % 0.00-20.00 [facility] Comment on above: For adults in ED, MD W > 20.0 may be associated with a higher risk of sepsis during the first 12 hrs of hospital admissionThe predictive value of MDW for identifying sepsis in patients with hematological abnormalities has not been established Monocytes Auto (Bld) [#/Vol] Ordered By: Shukri Francisco on 11-25-2022 Monocytes (Bld) [#/Vol] N/A [facility] Monocytes/100 WBC Auto (Bld) Ordered By: Shukri Francisco on 11-25-2022 Monocytes/100 WBC (Bld) N/A [facility] Monocytes/100 WBC Manual cnt (Bld)Ordered By: Shukri Francisco on 11-25-2022 Monocytes/100 WBC (Bld) 2 % 2-11 [facility] Myelocytes/100 WBC Manual cn t (Bld)Ordered By: Shurki Francisco on 11-25-2022 Myelocytes/100 WBC (Bld) 4 % 0-0 [facility] Natriuretic peptide B [Mass/ Vol]Ordered By: Shukri Francisco on 11-25-2022 Natriuretic peptide B (Bld) [Mass/Vol] 194.0 pg/mL 5-100 [facility] Neutrophils Auto (Bld) [#/Vo l]Ordered By: Shukri Francisco on 11-25-2022 Neutrophils (Bld) [#/Vol] N/A [facility] Neutrophils/100 WBC Auto (Bl d)Ordered By: Shukri Francisco on 11-25-2022 Neutrophils/100 WBC (Bld) N/A [facility] [facility] Nitrite Test strip Ql (U)Ord ered By: Shukri Francisco on 11-25-2022 Nitrite Ql (U) Negative Negative [facility] No Panel InformationOrdered By: Jean-Pierre Otero on 11-25-2022 Bedside Glucose #2 Comment Follow hypoglycemic [facility] Bedside Glucose Comment See comment [facility] Comment on above: Glu2: WILL NOTIFY DR /RN No Panel InformationOrdered By: Shukri Francisco on 11-25-2022 Estimated GFR (CKD-EPI) > 60.0 mL/Min [facility] Creatinine Clearance (Chem 41.45 [facility] Nucleated erythrocytes [Pres ence] in Blood by Automated countOrdered By: Shukri Francisco on 11-25-2022 Nucleated RBC Auto Ql (Bld) N/A [facility] Partial Thromboplastin Timeo n 11-25-2022 aPTT Coag (Bld) [Time] 23.3 s Low 25.1-36.5 [facility] Comment on above: Result Comment: PERF ORMED BY: [place] [address] PATHOLOGIST [employer] TRINA GARCIA M.D. Performed By: #### M G, TSH3, CBC, DIFF CBC, PT, PTT, CMP #### [facility] [address] [place] [address] Platelet adequacy [Presence] in Blood by Light microscopyOrdered By: Shukri Francisco on 11-25-2022 Platelets LM Ql (Bld) Normal Normal [facility] Platelet mean volume Auto (B ld) [Entitic vol]Ordered By: Shukri Francisco on 11-25-2022 Platelet mean volume (Bld) [Entitic vol] 8.1 fL 6.6-10.1 [facility] Platelet morphology finding [Identifier] in BloodOrdered By: Shukri Francisco on 11-25-2022 Platelet morphology finding Nom (Bld) Normal Normal [facility] Platelet poor plasma interna tional normalized ratio (INR) by coagulation assay (relatOrdered By: Shukri Francisco on 11-25-2022 INR Coag (PPP) [Relative time] 0.9 {INR} [facility] Comment on above: INR Therapeutic Rang [...] 11-25-2022 Platelets (Bld) [#/Vol] 278 10*3/uL 150-450 [facility] Potassium [Moles/volume] in Serum or PlasmaOrdered By: Shukri Francisco on 11-25-2022 Potassium [Moles/Vol] 4.0 mmol/L 3.5-5.1 [facility] Protein Auto test strip (U) [Mass/Vol]Ordered By: Shukri Francisco on 11-25-2022 Protein (U) [Mass/Vol] 300 mg/dL Negative [facility] Protein [Mass/volume] in Ser um or PlasmaOrdered By: Shukri Francisco on 11-25-2022 Protein [Mass/Vol] 6.2 g/dL 6.4-8.9 [facility] Prothrombin Time INRon 11-25 INR Coag (PPP) [Relative time] 0.9 {INR} Normal [facility] Comment on above: Result Comment: INR [...] CBC, DIFF CBC, PT, PTT, CMP #### [facility] [address] PT Coag (PPP) [Time] 10.6 s Normal 9.0-12.9 [facility] Comment on above: Performed By: #### M G, TSH3, CBC, DIFF CBC, PT, PTT, CMP #### [facility] [address] RBC Auto (Bld) [#/Vol]Ordere d By: Shukri Francisco on 11-25-2022 RBC (Bld) [#/Vol] 4.24 10*6/uL 3.90-5.60 [facility] RBC morphologyOrdered By: Allie Francisco on 11-25-2022 RBC morphology finding Nom (Bld) Normal Normal [facility] Segmented neutrophils/100 WB C Manual cnt (Bld)Ordered By: Shukri Francisco on 11-25-2022 Segmented neutrophils/100 WBC (Bld) 85 % 50-70 [facility] Serum or plasma albumin/glob ulin mass ratioOrdered By: Shukri Francisco on 11-25-2022 Albumin/Globulin [Mass ratio] 1.1 {ratio} [facility] Serum or plasma anion gap de terminationOrdered By: Shukri Francisco on 11-25-2022 Anion gap [Moles/Vol] 11.0 mmol/L 6.0-15.0 [facility] Sodium [Moles/volume] in Ser um or PlasmaOrdered By: Shukri Francisco on 11-25-2022 Sodium [Moles/Vol] 142 mmol/L 136-145 [facility] Specific gravity Auto test s trip (U) [Rel density]Ordered By: Shukri Francisco on 11-25-2022 Specific gravity (U) [Rel density] 1.024 1.001-1.030 [facility] Squamous epithelial cells de tection in urine sediment by light microscopyOrdered By: Shukri Francisco on 11-25-2022 Epithelial cells.squamous LM Ql (Urine sed) 0-1 [HPF] 0-2 [facility] Thyroid Stimulating Hormoneo n 11-25-2022 TSH Qn 0.17 m[IU]/L Low 0.45-5.33 [facility] Comment on above: Result Comment: PERF ORMED BY: [place] [address] PATHOLOGIST [employer] TRINA GARCIA M.D. Performed By: #### M G, TSH3, CBC, DIFF CBC, PT, PTT, CMP #### [place] [id number] [facility] Thyrotropin [Units/volume] i n Serum or PlasmaOrdered By: Shukri Francisco on 11-25-2022 TSH Qn 0.17 m[IU]/L 0.45-5.33 [facility] Thyroxine (T4) free [Mass/vo lume] in Serum or PlasmaOrdered By: Shukri Francisco on 11-25-2022 Free T4 [Mass/Vol] 1.31 ng/dL 0.61-1.12 [facility] Troponin I High Sensitivityo n 11-25-2022 Troponin I High Sensitivity 28.3 pg/mL High 0.0-20.0 [facility] Comment on above: Result Comment: PERF ORMED BY: [place] [address] PATHOLOGIST [employer] TRINA GARCIA M.D. Performed By: #### M G, TSH3, CBC, DIFF CBC, PT, PTT, CMP #### [facility] [address] [place] [address] Troponin I.cardiac [Mass/vol ume] in Serum or Plasma by Detection limit <= 0.01 ng/Ordered By: Shukri Francisco on 11-25-2022 Troponin I.cardiac DL <= 0.01 ng/mL [Mass/Vol] 28.3 pg/mL 0.0-20.0 [facility] Urea nitrogen [Mass/volume] in Serum or PlasmaOrdered By: Shukri Francisco on 11-25-2022 Urea nitrogen [Mass/Vol] 35 mg/dL 7-25 [facility] Urine bacteria detection by automated methodOrdered By: Shukri Francisco on 11-25-2022 Bacteria Auto Ql (U) None seen None Seen [facility] Urine clarity by refractomet ry automatedOrdered By: Shukri Francisco on 11-25-2022 Clarity Refractometry automated (U) Clear Clear [facility] Urine glucose measurement by automated test strip (mass/volume)Ordered By: Shukri Francisco on 11-25-2022 Glucose Auto test strip (U) [Mass/Vol] Normal mg/dL Normal [facility] Urine hemoglobin detection b y automated test stripOrdered By: Shukri Francisco on 11-25-2022 Hemoglobin Auto test strip Ql (U) Negative Negative [facility] Urine leukocyte esterase det ection by automated test stripOrdered By: Shukri Francisco on 11-25-2022 Leukocyte esterase Auto test strip Ql (U) Negative Negative [facility] Urobilinogen Auto test strip (U) [Mass/Vol]Ordered By: Shukri Francisco on 11-25-2022 Urobilinogen (U) [Mass/Vol] Normal mg/dL Normal [facility] WBC Auto (Bld) [#/Vol]Ordere d By: Shukri Francisco on 11-25-2022 WBC (Bld) [#/Vol] 21.8 10*3/uL 4.1-10.5 [facility] XR chest 1V portableon 11-25 XR chest 1V portable [facility] [place] [address] XRay Report Signed Patient: Franki Hernandez MR#: [id number] : 1940 Acct:[id number] Age/Sex: 82 / M ADM Date: 11/25/22 [...] David Chahal M.D.11/25/2022 6:13 PM Dictation Location: [place] [address] Transcribed By: PWS 11/25/221812 Dictated By: David Chahal DO 11/25/221811 Signed By: 11/25/221812 Normal [facility] pH Auto test strip (U)Ordere d By: Shukri Francisco on 11-25-2022 pH (U) 6.0 [pH] 5.0-9.0 [facility] XR LSPINE 2_3 VIEWSon 2022 XR LSPINE 2_3 VIEWS Normal [facility] CBC AUTO DIFFon 09-12-2022 BASO # 0.1 103/ul Normal 0.0-0.1 [facility] Comment on above: Performed By: #### C BC ####[facility] [address] [place] [address]Dr. Villa Yanes Basophils/100 WBC (Bld) 0.3 % Normal 0.2-2.0 [facility] Comment on above: Performed By: #### C BC ####[facility] [address] [place], [place] [address]Dr. Villa Yanes EO # 0.1 103/ul Normal 0.0-0.7 [facility] Comment on above: Performed By: #### C BC ####[facility] [address] [place] [address]Dr. Villa Yanes Eosinophils/100 WBC (Bld) 0.5 % Critically low 0.9-7.0 [facility] Comment on above: Performed By: #### C BC ####[facility] [address] [place] [address]Dr. Villa Yanes Erythrocyte distribution width (RBC) [Ratio] 12.3 % Normal 11.0-15.0 [facility] Comment on above: Performed By: #### C BC ####[facility] [address] [place], [place] [address]Dr. Villa Yanes Hematocrit (Bld) [Volume fraction] 40.2 % Critically low 42.0-54.0 [facility] Comment on above: Performed By: #### C BC ####[facility] [address] [place], [place] [address]Dr. Villa Yanes Hemoglobin (Bld) [Mass/Vol] 12.9 g/dL Critically low 14.0-18.0 [facility] Comment on above: Performed By: #### C BC ####[facility] [address] [place] [address]Dr. Villa Yanes IG # 0.16 10e3/ul Critically high 0.00-0.03 [facility] Comment on above: Performed By: #### C BC ####[facility] [address] [place] [address]Dr. Villa Joaquín IG % 1.0 % Critically high 0.0-0.5 [facility] Comment on above: Performed By: #### C BC ####[facility] [address] [place] [address]Dr. Villa Yanes LYMPH # 1.2 103/ul Normal 1.2-3.8 [facility] Comment on above: Performed By: #### C BC ####[facility] [address] [place] [address]Dr. Villa Yanes Lymphocytes/100 WBC (Bld) 7.2 % Critically low 20.5-60.0 [facility] Comment on above: Performed By: #### C BC ####[facility] [address] [place] [address]Dr. Brooklynkaren Yanes MANUAL DIFF REQ NO Normal [facility] Comment on above: Performed By: #### C BC ####[facility] [address] [place] [address]Dr. Villa Joaquín MCH (RBC) [Entitic mass] 31.9 pg Normal 25.9-34.0 [facility] Comment on above: Performed By: #### C BC ####[facility] [address] [place] [address]Dr. Villa Joaquín MCHC (RBC) [Mass/Vol] 32.1 g/dL Normal 29.9-35.2 [facility] Comment on above: Performed By: #### C BC ####[facility] [address] [place] [address]DrBrenden Yanes MCV (RBC) [Entitic vol] 99.5 fL Critically high 80.0-94.0 [facility] Comment on above: Performed By: #### C BC ####[facility] [address] [place] [address]DrBrenden Yanes MONO # 0.9 103/ul Critically high 0.3-0.8 [facility] Comment on above: Performed By: #### C BC ####[facility] [address] [place] [address]DrBrenden Yanes Monocytes/100 WBC (Bld) 5.6 % Normal 1.7-12.0 [facility] Comment on above: Performed By: #### C BC ####[facility] [address] [place], [place] [address]Dr. Villa Yanes NEUT # 14.1 103/ul Critically high 1.4-6.5 [facility] Comment on above: Performed By: #### C BC ####[facility] [address] [place], [place] [address]Dr. Villa Yanes Neutrophils/100 WBC (Bld) 85.4 % Critically high 43.0-75.0 [facility] Comment on above: Performed By: #### C BC ####[facility] [address] [place] [address]Dr. Villa Yanes Platelet mean volume (Bld) [Entitic vol] 9.9 fL Normal 9.5-13.5 [facility] Comment on above: Performed By: #### C BC ####[facility] [address]qs[address] [place], [place] [address]Dr. Villa Yanes PLT 275 103/ul Normal 150-450 [facility] Comment on above: Performed By: #### C BC ####[facility] [address] [place], [place] [address]DrBrenden Yanes RBC 4.04 106/ul Critically low 4.70-6.10 [facility] Comment on above: Performed By: #### C BC ####[facility] [address] [place], [place] [address]DrBrenden Driver Yanes WBC 16.5 103/ul Critically high 4.0-11.0 [facility] Comment on above: Performed By: #### C BC ####[facility] [address] [place], [place] [address]Dr. Brooklynkaren Joaquín CT ABD/PELV W CONon 09-13-[address] ABD/PELV W CON Normal [facility] ER URINE PROFILEon 3 Bilirubin Ql (U) Negative Normal NEGATIVE [facility] Comment on above: Performed By: #### E RUR ####[facility] [address] [place], [place] [address]Dr. Villa Yanes Clarity (U) CLEAR Normal CLEAR [facility] Comment on above: Performed By: #### E RUR ####[facility] Kh[address]oqu[address] [place], [place] [address]Dr. Villa Yanes Color (U) LT. YELLOW Normal YELLOW [facility] Comment on above: Performed By: #### E RUR ####[facility] [address]oc[address]pr[address] [place], [place] [address]Dr. Villa Yanes ERUAHD A micrscopic examina tion will be performed if indicated. Normal [facility] Comment on above: Performed By: #### E RUR ####[facility] [address] [place], [place] [address]Dr. Villa Yanes Glucose Ql (U) Negative Normal NEGATIVE [facility] Comment on above: Performed By: #### E RUR ####[facility] Clv[address]eyj[address] [place], [place] [address]Dr. Villa Yanes Hemoglobin Ql (U) Negative Normal NEGATIVE [facility] Comment on above: Performed By: #### E RUR ####[facility] [address]kt[address] [place], [place] [address]Dr. Villa Yanes Ketones Ql (U) Negative Normal NEGATIVE [facility] Comment on above: Performed By: #### E RUR ####[facility] Sxrydxroap[address] [place], [place] [address]Dr. Villa Yanes LEUKOCYTES Negative Normal NEGATIVE [facility] Comment on above: Performed By: #### E RUR ####[facility] [address] [place] [address]Dr. Villa Yanes Nitrite Ql (U) Negative Normal NEGATIVE [facility] Comment on above: Performed By: #### E RUR ####[facility] X[address] [place] [address]Dr. Villa Yanes pH (U) 8.0 [pH] Normal 5-9 [facility] Comment on above: Performed By: #### E RUR ####[facility] [address]ix[address] [place], [place] [address]Dr. Villa Yanes Protein (U) [Mass/Vol] 100 mg/dL Abnormal NEGATIVE/ TRACE [facility] Comment on above: Performed By: #### E RUR ####[facility] Adbcylxitv[address] [place], [place] [address]Dr. Villa Yanes SPEC GRAVITY 1.020 Normal 1.005-<=1.[address] [place] [address] Comment on above: Performed By: #### E RUR ####[facility] [address] [place], [place] [address]Dr. Villa Yanes UR MICRO IND NOT INDICATED Normal [facility] Comment on above: Performed By: #### E RUR ####[facility] Sw[address] [place], [place] [address]Dr. Villa Yanes Urobilinogen Qn (U) 0.2 {Mackenzie'U}/dL Normal 0.2 - 1. 0 [facility] Comment on above: Performed By: #### E RUR ####[facility] [address]us[address] [place], [place] [address]Dr. Villa Yanes PROF 14(COMP METB)on 023 Albumin [Mass/Vol] 3.3 g/dL Critically low 3.4-5.0 [facility] Comment on above: Performed By: #### H DEE, CMP ####[facility] [address] [place], [place] [address]Dr. Villa Yanes Albumin/Globulin [Mass ratio] 0.9 {ratio} Normal [facility] Comment on above: Performed By: #### H STROPN, CMP ####[facility] [address] [place] [id number]. Villa Yanes ALP [Catalytic activity/Vol] 208 U/L Critically high 46-116 [facility] Comment on above: Performed By: #### H STROPN, CMP ####[facility] [address]job[address] [place] [id number]. Villa Yanes ALT [Catalytic activity/Vol] 16 U/L Normal 16-63 [facility] Comment on above: Performed By: #### H STROPN, CMP ####[facility] [address]38[address] [place] [id number]. Villa Joaquín Anion gap [Moles/Vol] 11.3 mmol/L Normal [facility] Comment on above: Performed By: #### H STROPN, CMP ####[facility] [address] [place] [address]Dr. Villa Yanes AST [Catalytic activity/Vol] 12 U/L Critically low 15-37 [facility] Comment on above: Performed By: #### H STROPN, CMP ####[facility] [address] [place] [address]Dr. Villa Yanes Bilirubin [Mass/Vol] 0.3 mg/dL Normal 0.2-1.0 [facility] Comment on above: Performed By: #### H STROPN, CMP ####[facility] [address] [place] [address]Dr. Brooklynkaren Yanes Calcium [Mass/Vol] 9.8 mg/dL Normal 8.5-10.1 [facility] Comment on above: Performed By: #### H STROPN, CMP ####[facility] [address] [place] [address]Dr. Brooklynkaren Yanes Chloride [Moles/Vol] 103 mmol/L Normal 98-107 [facility] Comment on above: Performed By: #### H STROPN, CMP ####[facility] [address]zb[address] [place] [address]Dr. Villa Yanes CO2 [Moles/Vol] 29.6 mmol/L Normal 21.0-32.0 [facility] Comment on above: Performed By: #### H STROPN, CMP ####[facility] Ofbkf[address] [place] [address]Dr. Villa Yanes Creatinine [Mass/Vol] 1.12 mg/dL Normal 0.70-1.30 [facility] Comment on above: Performed By: #### H STROPN, CMP ####[facility] [address] [place] [address]Dr. Villa Yanes EGFR-AF MARTINIQUAIS >60 Normal >=60 [facility] Comment on above: Performed By: #### H STROPN, CMP ####[facility] [address] [place] [address]Dr. Villa Yanes EGFR-NON AF MARTINIQUAIS >60 Normal >=60 [facility] Comment on above: Performed By: #### H STROPN, CMP ####[facility] S[address]opzl38[address] [place] [address]Dr. Villa Yanes Globulin (S) [Mass/Vol] 3.7 g/dL Normal [facility] Comment on above: Performed By: #### H STROPN, CMP ####[facility] X[address]td[address] [place] [address]Dr. Villa Yanes Glucose [Mass/Vol] 151 mg/dL Critically high 74-106 [facility] Comment on above: Performed By: #### H STROPN, CMP ####[facility] J[address]pe[address]mo[address] [place] [address]Dr. Villa Yanes Potassium [Moles/Vol] 3.9 mmol/L Normal 3.5-5.1 [facility] Comment on above: Performed By: #### H STROPN, CMP ####[facility] [address]z4[address] [place] [address]Dr. Villa Yanes Protein [Mass/Vol] 7.0 g/dL Normal 6.4-8.2 [facility] Comment on above: Performed By: #### H STROPN, CMP ####[facility] Wme[address] [place] [address]Dr. Villa Yanes Sodium [Moles/Vol] 140 mmol/L Normal 136-145 [facility] Comment on above: Performed By: #### H DEE, CMP ####[facility] [address] [place] [address]Dr. Villa Yanes Urea nitrogen [Mass/Vol] 30.0 mg/dL Critically high 7.0-18.0 [facility] Comment on above: Performed By: #### H DEE, CMP ####[facility] N[address]osfmg6[address] [place] [address]Dr. Villa Yanes Urea nitrogen/Creatinine [Mass ratio] 26.8 mg/mg Normal [facility] Comment on above: Performed By: #### Carlos PRICE CMP ####[facility] [address]vr[address] [place], [place] [address]Dr. Villa Yanes TROPONIN, HIGH SENSITIVITYon 09-12-2022 HSTROP 8.9 pg/mL Normal 4.0-76.1 [facility] Comment on above: Result Comment: CUT- OFF POINTS HAVE BEEN ESTABLISHED BASED ON THE FOURTH UNIVERSAL DEFINITIONS OF MYOCARDIALINFARCTION. THE UPPER REFERENCE LIMIT (URL) OF TROPONIN, DEFINED THE 99TH PERCENTILE OFcTnI DISTRIBUTION IN A REFERENCE POPULATION, HAS BEEN CONFIRMED THE DECISION THRESHOLDFOR PA DIAGNOSIS. Performed By: #### Carlos PRICE CMP ####[facility] Un[address] [place], [place] [address]Dr. Brooklynkaren Yanes CBC AUTO DIFFon 08-18-2022 BASO # 0.1 103/ul Normal 0.0-0.1 [facility] Comment on above: Performed By: #### C BC ####[facility] [address] [place], [place] [address]Dr. Villa Yanes Basophils/100 WBC (Bld) 0.6 % Normal 0.2-2.0 [facility] Comment on above: Performed By: #### C BC ####[facility] [address] [place], [place] [address]Dr. Villa Yanes EO # 0.1 103/ul Normal 0.0-0.7 [facility] Comment on above: Performed By: #### C BC ####[facility] [address]xyh[address] [place] [address]Dr. Villa Yanes Eosinophils/100 WBC (Bld) 1.2 % Normal 0.9-7.0 [facility] Comment on above: Performed By: #### C BC ####[facility] [address]xy[address] [place], [place] [address]Dr. Villa Yanes Erythrocyte distribution width (RBC) [Ratio] 12.3 % Normal 11.0-15.0 [facility] Comment on above: Performed By: #### C BC ####[facility] [address] [place], [place] [address]Dr. Villa Yanes Hematocrit (Bld) [Volume fraction] 31.9 % Critically low 42.0-54.0 [facility] Comment on above: Performed By: #### C BC ####[facility] [address] [place], [place] [address]Dr. Villa Yanes Hemoglobin (Bld) [Mass/Vol] 10.4 g/dL Critically low 14.0-18.0 [facility] Comment on above: Performed By: #### C BC ####[facility] [address]wi[address] [place], [place] [address]Dr. Villa Yanes IG # 0.09 10e3/ul Critically high 0.00-0.03 [facility] Comment on above: Performed By: #### C BC ####[facility] [address]rupeg[address] [place], [place] [address]Dr. Villa Yanes IG % 1.0 % Critically high 0.0-0.5 [facility] Comment on above: Performed By: #### C BC ####[facility] [address] [place], [place] [address]Dr. Villa Yanes LYMPH # 1.6 103/ul Normal 1.2-3.8 [facility] Comment on above: Performed By: #### C BC ####[facility] [address] [place], [place] [address]Dr. Villa Yanes Lymphocytes/100 WBC (Bld) 17.9 % Critically low 20.5-60.0 [facility] Comment on above: Performed By: #### C BC ####[facility] [address] [place] [id number]. Villa Yanes MANUAL DIFF REQ NO Normal [facility] Comment on above: Performed By: #### C BC ####[facility] Nbsnjjqkmj80[address] [place] [id number]. Villa Yanes MCH (RBC) [Entitic mass] 32.2 pg Normal 25.9-34.0 [facility] Comment on above: Performed By: #### C BC ####[facility] Npeegrazgj[address] [place] [address]Dr. Villa Yanes MCHC (RBC) [Mass/Vol] 32.6 g/dL Normal 29.9-35.2 [facility] Comment on above: Performed By: #### C BC ####[facility] Novjnuyxtn7193 [place] [address]Dr. Villa Yanes MCV (RBC) [Entitic vol] 98.8 fL Critically high 80.0-94.0 [facility] Comment on above: Performed By: #### C BC ####[facility] Mdtzadzghr[address] [place], [place] [address]Dr. Villa Joaquín MONO # 0.6 103/ul Normal 0.3-0.8 [facility] Comment on above: Performed By: #### C BC ####[facility] Qctdnnuznh4[address] [place], [place] [address]Dr. [place]karen Yanes Monocytes/100 WBC (Bld) 6.6 % Normal 1.7-12.0 [facility] Comment on above: Performed By: #### C BC ####[facility] Olwtayrhho153[address] [place], [place] [id number]. Villa Yanes NEUT # 6.6 103/ul Critically high 1.4-6.5 [facility] Comment on above: Performed By: #### C BC ####[facility] Ruafdoafuf119[address] [place], [place] [address]Dr. [place]karen Yanes Neutrophils/100 WBC (Bld) 72.7 % Normal 43.0-75.0 [facility] Comment on above: Performed By: #### C BC ####[facility] Jdpbmphvga7447 [place] [id number]. Villa Yanes Platelet mean volume (Bld) [Entitic vol] 9.6 fL Normal 9.5-13.5 [facility] Comment on above: Performed By: #### C BC ####[facility] Ebguurdiqc0367 [place] [id number]. Villa Yanes PLT 206 103/ul Normal 150-450 [facility] Comment on above: Performed By: #### C BC ####[facility] Osrviclmxy[address] [place], [place] [id number]. Villa Joaquín RBC 3.23 106/ul Critically low 4.70-6.10 [facility] Comment on above: Performed By: #### C BC ####[facility] Mvurynatuc320[address] [place], [place] [address]Dr. [place]karen Yanes WBC 9.0 103/ul Normal 4.0-11.0 [facility] Comment on above: Performed By: #### C BC ####[facility] Dvyzwnofid[address] [place], [place] [address]Dr. [place]karen Yanes CULTURE URINEon 08-18-2022 CULTURE URINE Culture Observations : LIGHT GROWTH OF MIXED SKIN ARACELI. NO POTENTIAL PATHOGENS SEEN. Normal [facility] Comment on above: Performed By: #### U RCX ####[facility] Ypoxxykgyc39[address] [place], [place] [address]Dr. Villa Yanes PROF CHEM 8 (BAS METB)on Anion gap [Moles/Vol] 9.4 mmol/L Normal [facility] Comment on above: Performed By: #### B MP ####[facility] Hrxslesrbc3846[address] [place], [place] [address]Dr. Villa Yanes Calcium [Mass/Vol] 8.8 mg/dL Normal 8.5-10.1 [facility] Comment on above: Performed By: #### B MP ####[facility] Ggidqhxjfa706[address] [place], [place] [address]Dr. Villa Yanes Chloride [Moles/Vol] 108 mmol/L Critically high 98-107 [facility] Comment on above: Performed By: #### B MP ####[facility] Bhlbsdgiiy5689 [place] [address]Dr. Villa Yanes CO2 [Moles/Vol] 28.5 mmol/L Normal 21.0-32.0 [facility] Comment on above: Performed By: #### B MP ####[facility] Hykfyvjwxs6459 [place] [address]Dr. Villa Yanes Creatinine [Mass/Vol] 0.76 mg/dL Normal 0.70-1.30 [facility] Comment on above: Performed By: #### B MP ####[facility] Gjepkhjlmk2093 [place] [address]Dr. Villa Yanes EGFR-AF MARTINIQUAIS >60 Normal >=60 [facility] Comment on above: Performed By: #### B MP ####[facility] Erppwnfejo23[address] [place], [place] [address]Dr. [place]karen Joaquín EGFR-NON AF MARTINIQUAIS >60 Normal >=60 [facility] Comment on above: Performed By: #### B MP ####[facility] Tbzslqbssv6738[address] [place], [place] [address]Dr. Villa Joaquín Glucose [Mass/Vol] 84 mg/dL Normal 74-106 [facility] Comment on above: Performed By: #### B MP ####[facility] Fdfwcyzwgk655[address] [place], [place] [address]Dr. Villa Joaquín Potassium [Moles/Vol] 3.9 mmol/L Normal 3.5-5.1 [facility] Comment on above: Performed By: #### B MP ####[facility] Srccihhndq014[address] [place], [place] [address]Dr. Villa Ynaes Sodium [Moles/Vol] 142 mmol/L Normal 136-145 [facility] Comment on above: Performed By: #### B MP ####[facility] Lsbhvsnwcq7039[address] [place], [place] [address]Dr. [place]karen Yanes Urea nitrogen [Mass/Vol] 15.0 mg/dL Normal 7.0-18.0 [facility] Comment on above: Performed By: #### B MP ####[facility] Joylbyjbjk9[address] [place] [address]Dr. Villa Yanes Urea nitrogen/Creatinine [Mass ratio] 19.7 mg/mg Normal [facility] Comment on above: Performed By: #### B MP ####[facility] Jihgjbsujo10[address] [place], [place] [address]Dr. Villa Yanes UA RANDOM W/MICROSCOPICon BACTERIA NONE SEEN Normal NONE SEEN [facility] Comment on above: Performed By: #### U AMIC ####[facility] Jpvkeumqks415[address] [place], [place] [address]Dr. Villa Yanes Bilirubin Ql (U) Negative Normal NEGATIVE [facility] Comment on above: Performed By: #### U AMIC ####[facility] Annvvhoggu1236[address] [place], [place] [address]Dr. Villa Yanes CAST NONE SEEN Normal NONE SEEN [facility] Comment on above: Performed By: #### U AMIC ####[facility] Gscettlluf817[address] [place], [place] [address]Dr. Villa Yanes Clarity (U) CLEAR Normal CLEAR [facility] Comment on above: Performed By: #### U AMIC ####[facility] Aqbebhlucb36[address] [place], [place] [address]Dr. Villa Yanes Color (U) LT. YELLOW Normal YELLOW [facility] Comment on above: Performed By: #### U AMIC ####[facility] Eemzargger2710[address] [place], [place] [address]Dr. Villa Yanes Crystals LM Nom (Urine sed) NONE SEEN Normal NONE SEEN [facility] Comment on above: Performed By: #### U AMIC ####[facility] Orpmtqdwjj3087[address] [place], [place] [address]Dr. Villa Yanes Epithelial cells LM Ql (Urine sed) NONE SEEN Normal NONE SEEN /RARE [facility] Comment on above: Performed By: #### U AMIC ####[facility] Mwpqzqmqzx070236 [address] [place], [place] [address]Dr. Villa Yanes Glucose Ql (U) Negative Normal NEGATIVE [facility] Comment on above: Performed By: #### U AMIC ####[facility] Npxsrwthry9997 [place] [address]Dr. Villa Yanes Hemoglobin Ql (U) Negative Normal NEGATIVE [facility] Comment on above: Performed By: #### U AMIC ####[facility] Bixkhjlwrr6734[address] [place], [place] [address]Dr. Villa Yanes Ketones Ql (U) Negative Normal NEGATIVE [facility] Comment on above: Performed By: #### U AMIC ####[facility] Xwapdqlkcx8733[address] [place], [place] [address]Dr. Villa Yanes LEUKOCYTES Negative Normal NEGATIVE [facility] Comment on above: Performed By: #### U AMIC ####[facility] Vrjmtqgudx4[address] [place], [place] [address]Dr. Villa Yanes MUCOUS NONE SEEN Normal NONE SEEN [facility] Comment on above: Performed By: #### U AMIC ####[facility] Dhlkktwftz9965[address] [place], [place] [address]Dr. Villa Yanes Nitrite Ql (U) Negative Normal NEGATIVE [facility] Comment on above: Performed By: #### U AMIC ####[facility] Ejfkzuqluq9747[address] [place], [place] [address]Dr. Villa Yanes pH (U) 7.0 [pH] Normal 5-9 [facility] Comment on above: Performed By: #### U AMIC ####[facility] Xgqrtyigpv466[address] [place], [place] [address]Dr. Villa Yanes RBC 0-2 Normal 0-2 [facility] Comment on above: Performed By: #### U AMIC ####[facility] Zcidnfgnew80[address] [place], [place] [address]Dr. Villa Yanes SPEC GRAVITY 1.015 Normal 1.005-<=1.0 25 [facility] Comment on above: Performed By: #### U AMIC ####[facility] Apnbxqxxfu6235[address] [place], [place] [address]Dr. Villa Yanes UA PROTEIN 100 mg/dl Abnormal NEGATIVE/ TRACE [facility] Comment on above: Performed By: #### U AMIC ####[facility] Mzgmscarho766[address] [place], [place] [address]Dr. Villa Yanes Urobilinogen Qn (U) 0.2 {Mackenzie'U}/dL Normal 0.2 - 1. 0 [facility] Comment on above: Performed By: #### U AMIC ####[facility] Beybgbfldx17[address] [place] [address]Dr. Villa Yanes WBC NONE SEEN Normal NONE SEEN [facility] Comment on above: Performed By: #### U AMIC ####[facility] Ppdxikqsmg4991 [place] [address]Dr. Villa Yanes ACETONE SERUMon 08-17-2022 ACETONE Negative Normal NEGATIVE [facility] Comment on above: Performed By: #### A CETON ####[facility] Wpchioykke[address] [place], [place] [address]Dr. Villa Yanes CBC AUTO DIFFon 08-17-2022 BASO # 0.1 103/ul Normal 0.0-0.1 [facility] Comment on above: Performed By: #### C BC ####[facility] Br[address]ocwstl3212 [place] [address]Dr. Villa Yanes Basophils/100 WBC (Bld) 0.4 % Normal 0.2-2.0 [facility] Comment on above: Performed By: #### C BC ####[facility] Oekdzscskx5967 [place] [address]Dr. Villa Yanes EO # 0.1 103/ul Normal 0.0-0.7 [facility] Comment on above: Performed By: #### C BC ####[facility] Fhrbcoppwv3528 [place] [address]Dr. Villa Yanes Eosinophils/100 WBC (Bld) 0.4 % Critically low 0.9-7.0 [facility] Comment on above: Performed By: #### C BC ####[facility] Qccfcmxyyl5810 [place] [address]Dr. Villa Yanes Erythrocyte distribution width (RBC) [Ratio] 12.5 % Normal 11.0-15.0 [facility] Comment on above: Performed By: #### C BC ####[facility] Gprajoqqio7704 [place] [address]Dr. Villa Yanes Hematocrit (Bld) [Volume fraction] 37.8 % Critically low 42.0-54.0 [facility] Comment on above: Performed By: #### C BC ####[facility] Lqhjzphhvv5699 [place] [address]Dr. [place]karen Yanes Hemoglobin (Bld) [Mass/Vol] 12.4 g/dL Critically low 14.0-18.0 [facility] Comment on above: Performed By: #### C BC ####[facility] Xwusdzbzgr9031 [place] [address]Dr. Villa Yanes IG # 0.16 10e3/ul Critically high 0.00-0.03 [facility] Comment on above: Performed By: #### C BC ####[facility] Elpbejckqz5662 [place] [address]Dr. Villa Yanes IG % 1.2 % Critically high 0.0-0.5 [facility] Comment on above: Performed By: #### C BC ####[facility] Cjzupqtrpm5145 [place] [address]Dr. Villa Yanes LYMPH # 1.1 103/ul Critically low 1.2-3.8 [facility] Comment on above: Performed By: #### C BC ####[facility] Fdeadrubfe0332 [place] [address]Dr. Villa Yanes Lymphocytes/100 WBC (Bld) 8.0 % Critically low 20.5-60.0 [facility] Comment on above: Performed By: #### C BC ####[facility] Jwzlvcgctw6532 [place] [address]Dr. Villa Yanes MANUAL DIFF REQ NO Normal [facility] Comment on above: Performed By: #### C BC ####[facility] Oxhhpkvtqk4064[address] [place], [place] [address]DrBrenden Yanes MCH (RBC) [Entitic mass] 32.0 pg Normal 25.9-34.0 [facility] Comment on above: Performed By: #### C BC ####[facility] Gswkgnrbdh3162 [place] [id number]. Villa Yanes MCHC (RBC) [Mass/Vol] 32.8 g/dL Normal 29.9-35.2 [facility] Comment on above: Performed By: #### C BC ####[facility] Cpxtaeprrq5833 [place] [id number]. Villa Yanes MCV (RBC) [Entitic vol] 97.7 fL Critically high 80.0-94.0 [facility] Comment on above: Performed By: #### C BC ####[facility] Lnbvtnhuvz2834 [place] [id number]. Villa Yanes MONO # 0.9 103/ul Critically high 0.3-0.8 [facility] Comment on above: Performed By: #### C BC ####[facility] Fxfkjiasqq4322 [place] [id number]. [place]karen Yanes Monocytes/100 WBC (Bld) 6.4 % Normal 1.7-12.0 [facility] Comment on above: Performed By: #### C BC ####[facility] Ojklcrbafp1633 [place] [id number]. Villa Yanes NEUT # 11.3 103/ul Critically high 1.4-6.5 [facility] Comment on above: Performed By: #### C BC ####[facility] Uonrnrgkqs8937 [place] [id number]. Villa Joaquín Neutrophils/100 WBC (Bld) 83.6 % Critically high 43.0-75.0 [facility] Comment on above: Performed By: #### C BC ####[facility] Ispmdsenra7902 [place] [id number]. Villa Yanes Platelet mean volume (Bld) [Entitic vol] 9.2 fL Critically low 9.5-13.5 [facility] Comment on above: Performed By: #### C BC ####[facility] Jpzstmckoy7947 [place] [id number]. Villa Joaquín PLT 279 103/ul Normal 150-450 [facility] Comment on above: Performed By: #### C BC ####[facility] Kisftwuwyf2952 [place] [address]Dr. Villa Yanes RBC 3.87 106/ul Critically low 4.70-6.10 [facility] Comment on above: Performed By: #### C BC ####[facility] Pwsfiqqqdf6965 [place] [address]Dr. Villa Yanes WBC 13.6 103/ul Critically high 4.0-11.0 [facility] Comment on above: Performed By: #### C BC ####[facility] Lvuhikhwbb38[address] [place], [place] [address]Dr. Villa Yanes LACTATE/LACTIC ACIDon 2022 Lactate [Moles/Vol] 1.4 mmol/L Normal 0.4-2.0 [facility] Comment on above: Performed By: #### L ACT ####[facility] Ylbeswkegq8668[address] [place], [place] [address]Dr. Villa Yanes Lactate [Moles/Vol] 1.6 mmol/L Normal 0.4-2.0 [facility] Comment on above: Performed By: #### L ACT ####[facility] Fbrlmcmbbt9[address] [place], [place] [address]Dr. Villa Yanes LIPASEon 08-17-2022 Lipase [Catalytic activity/Vol] 37.0 U/L Critically low 73.0-393.0 [facility] Comment on above: Performed By: #### L IPA ####[facility] Bnjrvflqjc1174[address] [place], [place] [address]Dr. [place]karen Joaquín POINT OF CARE GLUCOSEon 07-23 Glucose [Mass/Vol] 118 mg/dL Critically high 74-106 [facility] Comment on above: Performed By: #### P OCGLUC ####[facility] Ahkvjmlynm667[address] [place], [place] [address]Dr. Villa Yanes Glucose [Mass/Vol] 124 mg/dL Critically high 74-106 [facility] Comment on above: Performed By: #### P OCGLUC ####[facility] Zfchkresce9138[address] [place], [place] [address]Dr. Villa Yanes PROF 14(COMP METB)on 023 Albumin [Mass/Vol] 3.2 g/dL Critically low 3.4-5.0 [facility] Comment on above: Performed By: #### C SHALOM, HSTROPN ####[facility] Smccitisqb7187 [place] [address]Dr. Villa Yanes Albumin/Globulin [Mass ratio] 1.0 {ratio} Normal [facility] Comment on above: Performed By: #### C SHALOM, HSTROPN ####[facility] Doxcrnlnfx5683 [place] [address]Dr. Villa Yanes ALP [Catalytic activity/Vol] 148 U/L Critically high 46-116 [facility] Comment on above: Performed By: #### C SHALOM, HSTROPN ####[facility] Kpvzmyiada0240 [place] [address]Dr. Villa Yanes ALT [Catalytic activity/Vol] 11 U/L Critically low 16-63 [facility] Comment on above: Performed By: #### C SHALOM, HSTROPN ####[facility] Deokqhwabe022[address] [place], [place] [address]Dr. Villa Yanes Anion gap [Moles/Vol] 14.2 mmol/L Normal [facility] Comment on above: Performed By: #### C SHALOM, HSTROPN ####[facility] Vxeaxkhtmj[address] [place], [place] [address]Dr. Villa Yanes AST [Catalytic activity/Vol] 9 U/L Critically low 15-37 [facility] Comment on above: Performed By: #### C SHALOM HSTROPN ####[facility] Uempdtcvgh[address] [place], [place] [address]Dr. Villa Yanes Bilirubin [Mass/Vol] 0.4 mg/dL Normal 0.2-1.0 [facility] Comment on above: Performed By: #### C SHALOM, HSTROPN ####[facility] Fkmsnzgbhx17[address] [place], [place] [address]Dr. Villa Yanes Calcium [Mass/Vol] 9.3 mg/dL Normal 8.5-10.1 [facility] Comment on above: Performed By: #### C MP, HSTROPN ####[facility] Skefmffuxd2652 [place] [address]Dr. Villa Yanes Chloride [Moles/Vol] 104 mmol/L Normal 98-107 [facility] Comment on above: Performed By: #### C MP, HSTROPN ####[facility] Eudjrgcuda0484 [place] [address]Dr. Villa Yanes CO2 [Moles/Vol] 27.5 mmol/L Normal 21.0-32.0 [facility] Comment on above: Performed By: #### C MP, HSTROPN ####[facility] Czuvczzmhj7891 [place] [address]Dr. Villa Yanes Creatinine [Mass/Vol] 1.11 mg/dL Normal 0.70-1.30 [facility] Comment on above: Performed By: #### C MP, HSTROPN ####[facility] Iuijbyqixd17[address] [place], [place] [address]Dr. Villa Yanes EGFR-AF MARTINIQUAIS >60 Normal >=60 [facility] Comment on above: Performed By: #### C MP, HSTROPN ####[facility] Wgjjzdlsou4826[address] [place], [place] [address]Dr. Villa Yanes EGFR-NON AF MARTINIQUAIS >60 Normal >=60 [facility] Comment on above: Performed By: #### C MP, HSTROPN ####[facility] Ejqfbslzpp6775 [place] [address]Dr. Villa Yanes Globulin (S) [Mass/Vol] 3.2 g/dL Normal [facility] Comment on above: Performed By: #### C MP, HSTROPN ####[facility] Kinqjomlkb4953 [place] [address]Dr. Villa Yanes Glucose [Mass/Vol] 163 mg/dL Critically high 74-106 [facility] Comment on above: Performed By: #### C MP, HSTROPN ####[facility] Riwujubisu9567 [place] [address]Dr. Villa Yanes Potassium [Moles/Vol] 3.7 mmol/L Normal 3.5-5.1 [facility] Comment on above: Performed By: #### C SHALOM, HSTROPN ####[facility] Drrsngljrq5382 [place] [address]Dr. Villa Yanes Protein [Mass/Vol] 6.4 g/dL Normal 6.4-8.2 [facility] Comment on above: Performed By: #### C SHALOM, HSTROPN ####[facility] Ytrqucfaia4499[address] [place], [place] [address]Dr. Villa Yanes Sodium [Moles/Vol] 142 mmol/L Normal 136-145 [facility] Comment on above: Performed By: #### C SHALOM, HSTROPN ####[facility] Iakrxsvhwy46[address] [place], [place] [address]Dr. Villa Yanes Urea nitrogen [Mass/Vol] 23.0 mg/dL Critically high 7.0-18.0 [facility] Comment on above: Performed By: #### C SHALOM, HSTROPN ####[facility] Xuoasfhzoo2467[address] [place], [place] [address]Dr. Villa Yanes Urea nitrogen/Creatinine [Mass ratio] 20.7 mg/mg Normal [facility] Comment on above: Performed By: #### C SHALOM HSTROPN ####[facility] Pvjdjecxna022[address] [place], [place] [address]Dr. Villa Yanes RESPIRATORY PANEL PLUSon Adenovirus Not detected Normal NOT DETECTED [facility] Comment on above: Performed By: #### R SPLUS ####[facility] Xtgisqlgts50[address] [place], [place] [address]Dr. Villa Yanes B. Parapertusis Not detected Normal NOT DETECTED [facility] Comment on above: Performed By: #### R SPLUS ####[facility] Uoxoffqytd28[address] [place], [place] [address]Dr. Villa Yanes B. Pertussis Not detected Normal NOT DETECTED [facility] Comment on above: Performed By: #### R SPLUS ####[facility] Exofybinmu2566[address] [place], [place] [address]Dr. Villa Yanes Chlamydia Pneumoniae Not detected Normal NOT DETECTED [facility] Comment on above: Performed By: #### R SPLUS ####[facility] Blwdzgpplv0874 [place] [address]Dr. Villa [facility] Coronavirus 229E Not detected Normal NOT DETECTED [facility] Comment on above: Performed By: #### R SPLUS ####[facility] Sveutpelwx8[address] [place], [place] [address]Dr. Villa [facility] Coronavirus HKU1 Not detected Normal NOT DETECTED [facility] Comment on above: Performed By: #### R SPLUS ####[facility] Uwzqnzfrnv2125[address] [place], [place] [address]Dr. Villa [facility] Coronavirus NL63 Not detected Normal NOT DETECTED [facility] Comment on above: Performed By: #### R SPLUS ####[facility] Cvhmxncxvv90[address] [place], [place] [address]Dr. [facility] Coronavirus OC43 Not detected Normal NOT DETECTED [facility] Comment on above: Performed By: #### R SPLUS ####[facility] Usoavustnc[address] [place], [place] [address]Dr. Yikaren Yanes Influenza A H1 Not detected Normal NOT DETECTED [facility] Comment on above: Performed By: #### R SPLUS ####[facility] Enibhgkfsz[address] [place], [place] [address]Dr. Villa Yanes Influenza A H1 2009 Not detected Normal NOT DETECTED [facility] Comment on above: Performed By: #### R SPLUS ####[facility] Bfndqeemvs[address] [place], [place] [address]Dr. Yikaren Yanes Influenza A H3 Not detected Normal NOT DETECTED [facility] Comment on above: Performed By: #### R SPLUS ####[facility] Cfgcvsteno9626[address] [place], [place] [address]Dr. Yikaren Yanes Influenza B Not detected Normal NOT DETECTED [facility] Comment on above: Performed By: #### R SPLUS ####[facility] Sigbdcxokf[address] [place], [place] [address]Dr. Yikaren Yanes Metapneumovirus Not detected Normal NOT DETECTED [facility] Comment on above: Performed By: #### R SPLUS ####[facility] [address] [place] [address]Dr. Villa Yanes Mycoplas. Pneumoniae Not detected Normal NOT DETECTED [facility] Comment on above: Performed By: #### R SPLUS ####[facility] Ybvfeixwmj5[address] [place], [place] [address]Dr. Yikaren Yanes Parainfluenza 1 Not detected Normal NOT DETECTED [facility] Comment on above: Performed By: #### R SPLUS ####[facility] Lucsakcozj[address] [place], [place] [address]Dr. Yikaren Yanes Parainfluenza 2 Not detected Normal NOT DETECTED [facility] Comment on above: Performed By: #### R SPLUS ####[facility] Dunyndxlym94[address] [place], [place] [address]Dr. Villa Yanes Parainfluenza 3 Not detected Normal NOT DETECTED [facility] Comment on above: Performed By: #### R SPLUS ####[facility] Rtljdnszpp5[address] [place], [place] [address]Dr. Yikaren Yanes Parainfluenza 4 Not detected Normal NOT DETECTED [facility] Comment on above: Performed By: #### R SPLUS ####[facility] Bbbefodver7[address] [place], [place] [address]Dr. Yilan Yanes Rhino/Enterovirus Not detected Normal NOT DETECTED [facility] Comment on above: Performed By: #### R SPLUS ####[facility] Tzysaztxkn[address] [place], [place] [address]Dr. Yikaren Yanes RP2 Header 1 RESPIRATORY PANEL: VIRUSES Normal [facility] Comment on above: Performed By: #### R SPLUS ####[facility] Ajudkgtlfp[address] [place], [place] [address]Dr. Yilan Yanes RP2 Header 2 RESPIRATORY PANEL: BACTERIA Normal [facility] Comment on above: Performed By: #### R SPLUS ####[facility] Rozjbdltvb38[address] [place], [place] [address]Dr. Yilan Yanes RSV Not detected Normal NOT DETECTED [facility] Comment on above: Performed By: #### R SPLUS ####[facility] [address] [place], [place] [address]To. Villa Yanes SARS-CoV-2 (COVID-19) RNA SHELLY+probe Ql (Unsp spec) Not detected Normal NOT DETECTED [facility] Comment on above: Performed By: #### R SPLUS ####[facility] [address]et[address] [place], [place] [address]Rx. Villa Yanes TROPONIN, HIGH SENSITIVITYon 08-17-2022 HSTROP 9.7 pg/mL Normal 4.0-76.1 [facility] Comment on above: Result Comment: CUT- OFF POINTS HAVE BEEN ESTABLISHED BASED ON THE FOURTH UNIVERSAL DEFINITIONS OF MYOCARDIALINFARCTION. THE UPPER REFERENCE LIMIT (URL) OF TROPONIN, DEFINED THE 99TH PERCENTILE OFcTnI DISTRIBUTION IN A REFERENCE POPULATION, HAS BEEN CONFIRMED THE DECISION THRESHOLDFOR PA DIAGNOSIS. Performed By: #### C MP, HSTROPN ####[facility] [address] [place], [place] [address]Kb. 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 You may also call [phone] for free resources and assistance.; Status:Complete - [...] ago when he had a non-ST elevation PA associated with pneumonia, and initial ejection fraction [...] Percutaneous endoscopic gastrostomy tube insertion History of [employer] femoral-popliteal History of Urinary catheter placement Current [...] no hobson (more content not included)... Normal [employer] Tobacco Screening.on 023 Adult depression screening assessment No [facility] DO Work Phone: Fall risk assessment b) One or more fall s in the last year [facility] DO Work Phone: Tobacco use status CPHS a) Yes [facility] DO Work Phone: XR ABD FLAT_UPon 07-31-2022 XR ABD FLAT_UP Normal [facility] AMMONIAon 07-30-2022 Ammonia (P) [Moles/Vol] 10 umol/L Critically low 11-32 [facility] Comment on above: Performed By: #### A MM ####[facility] Yrzlzcprhg[address] [place], [place] [address]Dr. Villa Yanes AMYLASEon 07-30-2022 Amylase [Catalytic activity/Vol] 36 U/L Normal 25-115 [facility] Comment on above: Performed By: #### L IPA, TSH, CANDIE, T7, CMP ####[facility] Kkunjpwtsp27[address] [place], [place] [address]Dr. Villa Yanes CBC AUTO DIFFon 07-30-2022 BASO # 0.1 103/ul Normal 0.0-0.1 [facility] Comment on above: Performed By: #### C BC ####[facility] Numwitpxaz1404[address] [place], [place] [address]Dr. Villa Yanes Basophils/100 WBC (Bld) 0.7 % Normal 0.2-2.0 [facility] Comment on above: Performed By: #### C BC ####[facility] Czhfgdrkmd97[address] [place], [place] [address]Dr. Villa Yanes EO # 0.0 103/ul Normal 0.0-0.7 [facility] Comment on above: Performed By: #### C BC ####[facility] Mhwbqhtono[address] [place], [place] [address]Dr. Villa Yanes Eosinophils/100 WBC (Bld) 0.3 % Critically low 0.9-7.0 [facility] Comment on above: Performed By: #### C BC ####[facility] Rjrsbzereb[address] [place], [place] [address]Dr. Villa Yanes Erythrocyte distribution width (RBC) [Ratio] 13.1 % Normal 11.0-15.0 [facility] Comment on above: Performed By: #### C BC ####[facility] Hdjbthoomq[address] [place], [place] [address]Dr. Brooklynkaren Yanes Hematocrit (Bld) [Volume fraction] 41.2 % Critically low 42.0-54.0 [facility] Comment on above: Performed By: #### C BC ####[facility] [address] [place] [id number]. Villa Yanes Hemoglobin (Bld) [Mass/Vol] 13.7 g/dL Critically low 14.0-18.0 [facility] Comment on above: Performed By: #### C BC ####[facility] [address]ned[address] [place] [id number]. Villa Yanes IG # 0.41 10e3/ul Critically high 0.00-0.03 [facility] Comment on above: Performed By: #### C BC ####[facility] [address] [place] [address]Dr. Villa Yanes IG % 2.8 % Critically high 0.0-0.5 [facility] Comment on above: Performed By: #### C BC ####[facility] Hvuoxbqafk[address] [place], [place] [address]Dr. Villa Yanes LYMPH # 1.7 103/ul Normal 1.2-3.8 [facility] Comment on above: Performed By: #### C BC ####[facility] Shkgnmqgao7[address] [place], [place] [address]Dr. Villa Yanes Lymphocytes/100 WBC (Bld) 11.4 % Critically low 20.5-60.0 [facility] Comment on above: Performed By: #### C BC ####[facility] [address] [place] [address]Dr. Villa Yanes MANUAL DIFF REQ NO Normal [facility] Comment on above: Performed By: #### C BC ####[facility] Yzaigkmrax[address] [place], [place] [address]Dr. Villa Yanes MCH (RBC) [Entitic mass] 31.9 pg Normal 25.9-34.0 [facility] Comment on above: Performed By: #### C BC ####[facility] Oewmzjmbaq[address] [place], [place] [address]Dr. Villa Yanes MCHC (RBC) [Mass/Vol] 33.3 g/dL Normal 29.9-35.2 [facility] Comment on above: Performed By: #### C BC ####[facility] [address] [place] [id number]. Villa Yanes MCV (RBC) [Entitic vol] 96.0 fL Critically high 80.0-94.0 [facility] Comment on above: Performed By: #### C BC ####[facility] [address] [place] [id number]. Villa Yaens MONO # 0.9 103/ul Critically high 0.3-0.8 [facility] Comment on above: Performed By: #### C BC ####[facility] [address] [place] [id number]. Villa Yanes Monocytes/100 WBC (Bld) 6.4 % Normal 1.7-12.0 [facility] Comment on above: Performed By: #### C BC ####[facility] Ncvbvujmpu[address] [place], [place] [address]Dr. Villa Yanes NEUT # 11.6 103/ul Critically high 1.4-6.5 [facility] Comment on above: Performed By: #### C BC ####[facility] Ydtbqylaf[address] [place], [place] [address]Dr. Villa Yanes Neutrophils/100 WBC (Bld) 78.4 % Critically high 43.0-75.0 [facility] Comment on above: Performed By: #### C BC ####[facility] Eyqiiyafix7[address] [place], [place] [address]Dr. Villa Yanes Platelet mean volume (Bld) [Entitic vol] 9.2 fL Critically low 9.5-13.5 [facility] Comment on above: Performed By: #### C BC ####[facility] [address] [place] [id number]. Villa Yanes PLT 368 103/ul Normal 150-450 [facility] Comment on above: Performed By: #### C BC ####[facility] Cxucytrejg[address] [place], [place] [address]Dr. Villa Joaquín RBC 4.29 106/ul Critically low 4.70-6.10 [facility] Comment on above: Performed By: #### C BC ####[facility] [address] [place] [id number]. Villa Yanes WBC 14.8 103/ul Critically high 4.0-11.0 [facility] Comment on above: Performed By: #### C BC ####[facility] Zx[address]xiqb[address] [place] [id number]. Villa Yanes [facility]on SARS-CoV-2 (COVID-19) RNA SHELLY+probe Ql (Unsp spec) Not detected Normal NOT DETECTED [facility] Comment on above: Result Comment: When [...] for this test is supported by the [place] of Health and Human Service's declaration that [...] be used). Performed By: #### C VDTBH ####[facility] [address] [place] [address]Dr. Villa Yanes FREE THYROXINE INDEX T7on FTI 2.55 Normal 1.30-4.50 [facility] Comment on above: Performed By: #### L IPA, TSH, CANDIE, T7, CMP ####[facility] Kbp[address]iannlq[address] [place], [place] [address]Dr. Villa Yanes T3U 38.0 % Normal 33.0-40.0 [facility] Comment on above: Performed By: #### L IPA, TSH, CANDIE, T7, CMP ####[facility] [address]eg[address]hp[address] [place] [id number]. Villa Yanes T4 [Mass/Vol] 6.70 ug/dL Normal 4.50-12.10 [facility] Comment on above: Performed By: #### L IPA, TSH, CANDIE, T7, CMP ####[facility] Uojphvbrhu[address] [place], [place] [address]Dr. Villa Yanes INFLUENZA A AND B AGon 07-30 INFLUANEGH SEE BELOW Normal [facility] Comment on above: Result Comment: Nega tive for Flu A protein angiten. Infection due to Flu A cannot be ruled out. Flu A angiten in the sample may be below the detection limit of the test. Performed By: #### I NFLUAB ####[facility] [address] [place] [address]. Villa Yanes INFLUBNEGH SEE BELOW Normal [facility] Comment on above: Result Comment: Nega tive for Flu B protein antigen. Infection due to Flu B cannot be ruled out. Flu B antigen in the sample may be below the detection limit of the test. Performed By: #### I NFLUAB ####[facility] Qetcyomdib[address] [place], [place] [address]Dr. Villa [facility] INFLUENZA A AG Negative Normal NEGATIVE SEE COMMENT [facility] Comment on above: Performed By: #### I NFLUAB ####[facility] R[address] [place] [address]. Villa Yanes INFLUENZA B AG Negative Normal NEGATIVE SEE COMMENT [facility] Comment on above: Performed By: #### I NFLUAB ####[facility] Hastklognk[address] [place], [place] [address]Dr. Villa Yanes IRONon 07-30-2022 Iron [Mass/Vol] 44.0 ug/dL Critically low 65.0-175.0 [facility] Comment on above: Performed By: #### I JOSE ####[facility] Cuyaxlemqm[address] [place], [place] [address]Dr. Villa Yanes LIPASEon 07-30-2022 Lipase [Catalytic activity/Vol] 44.0 U/L Critically low 73.0-393.0 [facility] Comment on above: Performed By: #### L IPA, TSH, CANDIE, T7, CMP ####[facility] [address] [place] [address]Dr. Villa Yanes PROF 14(COMP METB)on 023 Albumin [Mass/Vol] 3.3 g/dL Critically low 3.4-5.0 [facility] Comment on above: Performed By: #### L IPA, TSH, CANDIE, T7, CMP ####[facility] Ufimuxbflu6[address] [place], [place] [address]Dr. Villa Yanes Albumin/Globulin [Mass ratio] 0.9 {ratio} Normal [facility] Comment on above: Performed By: #### L IPA, TSH, CANDIE, T7, CMP ####[facility] Bkaowjiwcv99[address] [place], [place] [address]Dr. Villa Yanes ALP [Catalytic activity/Vol] 163 U/L Critically high 46-116 [facility] Comment on above: Performed By: #### L IPA, TSH, CANDIE, T7, CMP ####[facility] Juydvbqcyh[address] [place], [place] [address]Dr. Villa Yanes ALT [Catalytic activity/Vol] 10 U/L Critically low 16-63 [facility] Comment on above: Performed By: #### L IPA, TSH, CANDIE, T7, CMP ####[facility] Wsonakhnpu[address] [place], [place] [address]Dr. Villa Yanes Anion gap [Moles/Vol] 13.1 mmol/L Normal [facility] Comment on above: Performed By: #### L IPA, TSH, CANDIE, T7, CMP ####[facility] Uhdcymoxkm4[address] [place], [place] [address]Dr. Villa Yanes AST [Catalytic activity/Vol] 12 U/L Critically low 15-37 [facility] Comment on above: Performed By: #### L IPA, TSH, CANDIE, T7, CMP ####[facility] Kjhlvpkbzv[address] [place], [place] [address]Dr. Villa Yanes Bilirubin [Mass/Vol] 0.4 mg/dL Normal 0.2-1.0 [facility] Comment on above: Performed By: #### L IPA, TSH, CANDIE, T7, CMP ####[facility] [address] [place] [address]Dr. Villa Yanes Calcium [Mass/Vol] 9.8 mg/dL Normal 8.5-10.1 [facility] Comment on above: Performed By: #### L IPA, TSH, CANDIE, T7, CMP ####[facility] Bzzoalkcsw[address] [place], [place] [address]Dr. Villa Yanes Chloride [Moles/Vol] 106 mmol/L Normal 98-107 [facility] Comment on above: Performed By: #### L IPA, TSH, CANDIE, T7, CMP ####[facility] Ookwbslkkw[address] [place], [place] [address]Dr. Villa Yanes CO2 [Moles/Vol] 27.3 mmol/L Normal 21.0-32.0 [facility] Comment on above: Performed By: #### L IPA, TSH, CANDIE, T7, CMP ####[facility] Qxrckpujmr[address] [place], [place] [address]Dr. Villa Yanes Creatinine [Mass/Vol] 1.23 mg/dL Normal 0.70-1.30 [facility] Comment on above: Performed By: #### L IPA, TSH, CANDIE, T7, CMP ####[facility] Riuoudnmll[address] [place], [place] [address]Dr. Villa Yanes EGFR-AF MARTINIQUAIS >60 Normal >=60 [facility] Comment on above: Performed By: #### L IPA, TSH, CANDIE, T7, CMP ####[facility] Yznmiscwhr[address] [place], [place] [address]Dr. Villa Yanes EGFR-NON AF MARTINIQUAIS 57 mL/min/1.73m2 Critically low >=60 [facility] Comment on above: Performed By: #### L IPA, TSH, CANDIE, T7, CMP ####[facility] Kckmoybwzc[address] [place], [place] [address]Dr. Villa Yanes Globulin (S) [Mass/Vol] 3.7 g/dL Normal [facility] Comment on above: Performed By: #### L IPA, TSH, CANDIE, T7, CMP ####[facility] [address]ig[address] [place] [address]Dr. Villa Yanes Glucose [Mass/Vol] 155 mg/dL Critically high 74-106 [facility] [place] Comment on above: Performed By: #### L IPA, TSH, CANDIE, T7, CMP ####[facility] [address]xzhzy[address]vc[address] [place], [place] [address]Dr. Villa Yanes Potassium [Moles/Vol] 4.4 mmol/L Normal 3.5-5.1 [facility] Comment on above: Performed By: #### L IPA, TSH, CANDIE, T7, CMP ####[facility] Kmwcdiekut[address] [place], [place] [address]Dr. Villa Yanes Protein [Mass/Vol] 7.0 g/dL Normal 6.4-8.2 [facility] Comment on above: Performed By: #### L IPA, TSH, CANDIE, T7, CMP ####[facility] Xldwpidswk[address] [place], [place] [address]Dr. Villa Yanes Sodium [Moles/Vol] 142 mmol/L Normal 136-145 [facility] Comment on above: Performed By: #### L IPA, TSH, CANDIE, T7, CMP ####[facility] R[address]gg[address]seis[address] [place], [place] [address]Dr. Villa Yanes Urea nitrogen [Mass/Vol] 25.0 mg/dL Critically high 7.0-18.0 [facility] Comment on above: Performed By: #### L IPA, TSH, CANDIE, T7, CMP ####[facility] Oehwrv[address]nu[address] [place], [place] [address]Dr. Villa Yanes Urea nitrogen/Creatinine [Mass ratio] 20.3 mg/mg Normal [facility] Comment on above: Performed By: #### L IPA, TSH, CANDIE, T7, CMP ####[facility] Zsyiyoucoc[address] [place], [place] [address]Dr. Villa Yanes TSHon 07-30-2022 TSH 0.259 uIU/mL Critically low 0.358-3.740 [facility] Comment on above: Performed By: #### L IPA, TSH, CANDIE, T7, CMP ####[facility] [address] [place] [address]Dr. Villa Joaquín XR CHEST 2 Von 07-30-2022 XR CHEST 2 V Normal [facility] CBC AUTO DIFFon 07-01-2022 BASO # 0.0 103/ul Normal 0.0-0.1 [facility] Comment on above: Performed By: #### C BC ####[facility] [address]se[address] [place] [address]Dr. Villa Yanes Basophils/100 WBC (Bld) 0.1 % Critically low 0.2-2.0 [facility] Comment on above: Performed By: #### C BC ####[facility] Xqwkaxgrkw[address] [place], [place] [address]Dr. Villa Yanes EO # 0.1 103/ul Normal 0.0-0.7 [facility] Comment on above: Performed By: #### C BC ####[facility] X[address]vbkqottr[address] [place], [place] [address]Dr. Villa Yanes Eosinophils/100 WBC (Bld) 0.5 % Critically low 0.9-7.0 [facility] Comment on above: Performed By: #### C BC ####[facility] Ifexsgtxuk[address] [place], [place] [address]Dr. Villa Yanes Erythrocyte distribution width (RBC) [Ratio] 12.7 % Normal 11.0-15.0 [facility] Comment on above: Performed By: #### C BC ####[facility] X[address]fkaidmm[address] [place], [place] [address]Dr. Villa Yanes Hematocrit (Bld) [Volume fraction] 37.6 % Critically low 42.0-54.0 [facility] Comment on above: Performed By: #### C BC ####[facility] Mrrzxxidmz[address] [place], [place] [address]Dr. Villa Yanes Hemoglobin (Bld) [Mass/Vol] 12.2 g/dL Critically low 14.0-18.0 [facility] Comment on above: Performed By: #### C BC ####[facility] [address]woizd[address] [place], [place] [address]Dr. Villa Yanes IG # 0.10 10e3/ul Critically high 0.00-0.03 [facility] Comment on above: Performed By: #### C BC ####[facility] [address] [place] [address]DrBrenden Villa Joaquín IG % 1.0 % Critically high 0.0-0.5 [facility] Comment on above: Performed By: #### C BC ####[facility] [address]zvsyh[address] [place] [address]DrBrenden Villa Joaquín LYMPH # 1.4 103/ul Normal 1.2-3.8 [facility] Comment on above: Performed By: #### C BC ####[facility] [address]bsidx[address] [place] [address]DrBrenden Yanes Lymphocytes/100 WBC (Bld) 13.5 % Critically low 20.5-60.0 [facility] Comment on above: Performed By: #### C BC ####[facility] [address]hsxxrm[address] [place], [place] [address]DrBrenden Brooklynkaren Yanes MANUAL DIFF REQ NO Normal [facility] Comment on above: Performed By: #### C BC ####[facility] [address]wm[address] [place] [address]DrBrenden Villa Joaquín MCH (RBC) [Entitic mass] 32.7 pg Normal 25.9-34.0 [facility] Comment on above: Performed By: #### C BC ####[facility] [address]ru[address]qc[address] [place] [address]DrBrenden Villa Joaquín MCHC (RBC) [Mass/Vol] 32.4 g/dL Normal 29.9-35.2 [facility] Comment on above: Performed By: #### C BC ####[facility] Ofmsviioab1484 [place] [address]DrBrenden Yanes MCV (RBC) [Entitic vol] 100.8 fL Critically high 80.0-94.0 [facility] Comment on above: Performed By: #### C BC ####[facility] Hltgjlrtox[address] [place], [place] [address]DrBrenden Yanes MONO # 0.8 103/ul Normal 0.3-0.8 [facility] Comment on above: Performed By: #### C BC ####[facility] Oezfdmvurv47[address] [place] [address]Dr. Villa Yanes Monocytes/100 WBC (Bld) 7.9 % Normal 1.7-12.0 [facility] Comment on above: Performed By: #### C BC ####[facility] Nrmlcrwitd34[address] [place] [address]Dr. Villa Yanes NEUT # 7.9 103/ul Critically high 1.4-6.5 [facility] Comment on above: Performed By: #### C BC ####[facility] Wvbdpanlvm6144 [place] [address]Dr. Villa Yanes Neutrophils/100 WBC (Bld) 77.0 % Critically high 43.0-75.0 [facility] Comment on above: Performed By: #### C BC ####[facility] Tuclittwer246[address] [place], [place] [address]Dr. Villa Yanes Platelet mean volume (Bld) [Entitic vol] 10.1 fL Normal 9.5-13.5 [facility] Comment on above: Performed By: #### C BC ####[facility] Btswtopmjy29[address] [place], [place] [address]Dr. Villa Yanes PLT 196 103/ul Normal 150-450 [facility] Comment on above: Performed By: #### C BC ####[facility] Rdefrbrxrg4874 [place] [address]Dr. Villa Yanes RBC 3.73 106/ul Critically low 4.70-6.10 [facility] Comment on above: Performed By: #### C BC ####[facility] Swovrcflhe[address] [place] [id number]. Villa Yanes WBC 10.3 103/ul Normal 4.0-11.0 [facility] Comment on above: Performed By: #### C BC ####[facility] Scgyoxbjwk4722 [place] [id number]. Villa Yanes CRPon 07-01-2022 CRP 0.8 mg/dL Normal <=1.0 [facility] Comment on above: Performed By: #### B MP, CRP ####[facility] Zvnjlaqebn8[address] [place] [address]Dr. Villa Yanes PROF CHEM 8 (BAS METB)on Anion gap [Moles/Vol] 12.1 mmol/L Normal [facility] Comment on above: Performed By: #### B MP, CRP ####[facility] Enuggqxoza022[address] [place], [place] [address]Dr. Villa Yanes Calcium [Mass/Vol] 9.2 mg/dL Normal 8.5-10.1 [facility] Comment on above: Performed By: #### B MP, CRP ####[facility] Lleqqzpawg15[address] [place], [place] [address]Dr. Villa Yanes Chloride [Moles/Vol] 105 mmol/L Normal 98-107 [facility] Comment on above: Performed By: #### B MP, CRP ####[facility] Khsbrpgrje259[address] [place], [place] [address]Dr. Villa Yanes CO2 [Moles/Vol] 26.8 mmol/L Normal 21.0-32.0 [facility] Comment on above: Performed By: #### B MP, CRP ####[facility] Aiormfuxki2226[address] [place], [place] [address]Dr. Villa Yanes Creatinine [Mass/Vol] 1.11 mg/dL Normal 0.70-1.30 [facility] Comment on above: Performed By: #### B MP, CRP ####[facility] Biyvzithaf7565[address] [place], [place] [address]Dr. Villa Yanes EGFR-AF MARTINIQUAIS >60 Normal >=60 [facility] Comment on above: Performed By: #### B MP, CRP ####[facility] Zlppgjpzcy0034[address] [place], [place] [address]Dr. Vlila Yanes EGFR-NON AF MARTINIQUAIS >60 Normal >=60 [facility] Comment on above: Performed By: #### B MP, CRP ####[facility] Pwdlkvfxmg9237[address] [place], [place] [address]Dr. Villa Yanes Glucose [Mass/Vol] 136 mg/dL Critically high 74-106 [facility] Comment on above: Performed By: #### B MP, CRP ####[facility] Jzhyncvlnv295[address] [place], [place] [address]Dr. Villa Yanes Potassium [Moles/Vol] 3.9 mmol/L Normal 3.5-5.1 [facility] Comment on above: Performed By: #### B MP, CRP ####[facility] Ayrpjlhgpr3117[address] [place], [place] [address]Dr. Villa Joaquín Sodium [Moles/Vol] 140 mmol/L Normal 136-145 [facility] Comment on above: Performed By: #### B MP, CRP ####[facility] Fgtpjxtuld0945[address] [place], [place] [address]Dr. Villa Joaquín Urea nitrogen [Mass/Vol] 28.0 mg/dL Critically high 7.0-18.0 [facility] Comment on above: Performed By: #### B MP, CRP ####[facility] Mbcqcirypk064236 [address] [place], [place] [address]Dr. Villa Joaquín Urea nitrogen/Creatinine [Mass ratio] 25.2 mg/mg Normal [facility] Comment on above: Performed By: #### B MP, CRP ####[facility] Mnhcvjctok6827[address] [place], [place] [address]Dr. Villa Joaquín SED RATE WESTERGRENon 2022 SED RATE 32 mm/hr Critically high <=20 [facility] Comment on above: Performed By: #### S EDR ####[facility] Xdcxfecqut9[address] [place], [place] [address]Dr. Villa Joaquín XR LSPINE 2_3 VIEWSon 2022 XR LSPINE 2_3 VIEWS Normal [facility] CBC AUTO DIFFon 06-29-2022 BASO # 0.0 103/ul Normal 0.0-0.1 [facility] Comment on above: Performed By: #### C BC ####[facility] Rxpdhktdxt388136 [address] [place], [place] [address]Dr. Villa Yanes Basophils/100 WBC (Bld) 0.1 % Critically low 0.2-2.0 [facility] Comment on above: Performed By: #### C BC ####[facility] Yiskrpcobr16[address] [place] [address]DrBrenden Yanes EO # 0.0 103/ul Normal 0.0-0.7 [facility] Comment on above: Performed By: #### C BC ####[facility] Jyzawkxytv039[address] [place], [place] [address]DrBrenden Yanes Eosinophils/100 WBC (Bld) 0.0 % Critically low 0.9-7.0 [facility] Comment on above: Performed By: #### C BC ####[facility] Ascvzrplhx9568[address] [place], [place] [address]DrBrenden Yanes Erythrocyte distribution width (RBC) [Ratio] 12.6 % Normal 11.0-15.0 [facility] Comment on above: Performed By: #### C BC ####[facility] Ngnkzngpnc65[address] [place], [place] [address]DrBrenden Yanes Hematocrit (Bld) [Volume fraction] 31.6 % Critically low 42.0-54.0 [facility] Comment on above: Performed By: #### C BC ####[facility] Zeaptbujyh6750[address] [place], [place] [address]DrBrenden Yanes Hemoglobin (Bld) [Mass/Vol] 10.1 g/dL Critically low 14.0-18.0 [facility] Comment on above: Performed By: #### C BC ####[facility] Edmjzivjwr204236 [address] [place], [place] [address]DrBrenden Yanes IG # 0.10 10e3/ul Critically high 0.00-0.03 [facility] Comment on above: Performed By: #### C BC ####[facility] Xgzcfnbswz1833[address] [place], [place] [address]DrBrenden Yanes IG % 0.9 % Critically high 0.0-0.5 [facility] Comment on above: Performed By: #### C BC ####[facility] Qxkgfzlmex232[address] [place], [place] [address]DrBrenden Yanes LYMPH # 0.3 103/ul Critically low 1.2-3.8 [facility] Comment on above: Performed By: #### C BC ####[facility] Pygsbncbfo5238 [place] [address]DrBrenden Yanes Lymphocytes/100 WBC (Bld) 2.5 % Critically low 20.5-60.0 [facility] Comment on above: Performed By: #### C BC ####[facility] Bscmyejtif5811[address] [place], [place] [address]DrBrenden Yanes MANUAL DIFF REQ NO Normal [facility] Comment on above: Performed By: #### C BC ####[facility] Mrewmoaita9857[address] [place], [place] [address]DrBrenden Yanes MCH (RBC) [Entitic mass] 32.1 pg Normal 25.9-34.0 [facility] Comment on above: Performed By: #### C BC ####[facility] Fwaeaxptqf966[address] [place], [place] [address]DrBrenden Yanes MCHC (RBC) [Mass/Vol] 32.0 g/dL Normal 29.9-35.2 [facility] Comment on above: Performed By: #### C BC ####[facility] Tayqigjbfn0712[address] [place], [place] [address]DrBrenden Yanes MCV (RBC) [Entitic vol] 100.3 fL Critically high 80.0-94.0 [facility] Comment on above: Performed By: #### C BC ####[facility] Rwmlwxaqra3154[address] [place], [place] [address]DrBrenden Yanes MONO # 0.2 103/ul Critically low 0.3-0.8 [facility] Comment on above: Performed By: #### C BC ####[facility] Mtvanvrjxh6916[address] [place], [place] [address]DrBrenden Yanes Monocytes/100 WBC (Bld) 1.8 % Normal 1.7-12.0 [facility] Comment on above: Performed By: #### C BC ####[facility] Nhllskjrqr95[address] [place], [place] [address]DrBrenden Yanes NEUT # 10.8 103/ul Critically high 1.4-6.5 [facility] Comment on above: Performed By: #### C BC ####[facility] Wzfzcvtmyb5832 [place] [address]DrBrenden Yanes Neutrophils/100 WBC (Bld) 94.7 % Critically high 43.0-75.0 [facility] Comment on above: Performed By: #### C BC ####[facility] Vefiwtxyml0180 [place] [address]Dr. Villa Yanes Platelet mean volume (Bld) [Entitic vol] 10.1 fL Normal 9.5-13.5 [facility] Comment on above: Performed By: #### C BC ####[facility] Fhibazjvqz7667[address] [place], [place] [address]DrBrenden Yanes PLT 200 103/ul Normal 150-450 [facility] Comment on above: Performed By: #### C BC ####[facility] Ilmvtaoxbo032[address] [place], [place] [address]DrBrenden Yanes RBC 3.15 106/ul Critically low 4.70-6.10 [facility] Comment on above: Performed By: #### C BC ####[facility] Gayywtnmxo9978[address] [place], [place] [address]DrBrenden Yanes WBC 11.4 103/ul Critically high 4.0-11.0 [facility] Comment on above: Performed By: #### C BC ####[facility] Yyxfwzoiab4530[address] [place], [place] [address]DrBrenden Yanes POINT OF CARE GLUCOSEon Glucose [Mass/Vol] 225 mg/dL Critically high 74-106 [facility] Comment on above: Performed By: #### P OCGLUC ####[facility] Npfkcrjrzw20[address] [place], [place] [address]DrBrenden Yanes PROF CHEM 8 (BAS METB)on Anion gap [Moles/Vol] 15.6 mmol/L Normal [facility] Comment on above: Performed By: #### B MP ####[facility] Llqhtsanan0816[address] [place], [place] [address]Dr. Villa Yanes Calcium [Mass/Vol] 8.6 mg/dL Normal 8.5-10.1 [facility] Comment on above: Performed By: #### B MP ####[facility] Ppvvwcuuon7639 [place] [address]Dr. Villa Yanes Chloride [Moles/Vol] 106 mmol/L Normal 98-107 [facility] Comment on above: Performed By: #### B MP ####[facility] Ajsyzcqkak9129 [place] [address]Dr. Villa Yanes CO2 [Moles/Vol] 22.6 mmol/L Normal 21.0-32.0 [facility] Comment on above: Performed By: #### B MP ####[facility] Shtbqvgqkh1670 [place] [address]Dr. Villa Yanes Creatinine [Mass/Vol] 1.39 mg/dL Critically high 0.70-1.30 [facility] Comment on above: Performed By: #### B MP ####[facility] Kvoencgdld7767 [place] [address]Dr. Villa Yanes EGFR-AF MARTINIQUAIS 60 mL/min/1.73m2 Normal >=60 [facility] Comment on above: Performed By: #### B MP ####[facility] Hpzrrigpgm25[address] [place], [place] [address]Dr. Villa Yanes EGFR-NON AF MARTINIQUAIS 49 mL/min/1.73m2 Critically low >=60 [facility] Comment on above: Performed By: #### B MP ####[facility] Fofjwuogmh1828 [place] [address]Dr. Villa Yanes Glucose [Mass/Vol] 229 mg/dL Critically high 74-106 [facility] Comment on above: Performed By: #### B MP ####[facility] Wqiapxbfgp8530 [place] [address]Dr. Villa Yanes Potassium [Moles/Vol] 4.2 mmol/L Normal 3.5-5.1 [facility] Comment on above: Performed By: #### B MP ####[facility] Ldhjuhpgfg3456 [place] [address]Dr. Villa Yanes Sodium [Moles/Vol] 140 mmol/L Normal 136-145 [facility] Comment on above: Performed By: #### B MP ####[facility] Sclrxlhizn6820[address] [place], [place] [address]Dr. Villa Yanes Urea nitrogen [Mass/Vol] 47.0 mg/dL Critically high 7.0-18.0 [facility] Comment on above: Performed By: #### B MP ####[facility] Qorzqijmjs1108[address] [place], [place] [address]Dr. Villa Yanes Urea nitrogen/Creatinine [Mass ratio] 33.8 mg/mg Normal [facility] Comment on above: Performed By: #### B MP ####[facility] Blmbpvbswh6168[address] [place], [place] [address]Dr. Villa Yanes CBC AUTO DIFFon 06-28-2022 BASO # 0.0 103/ul Normal 0.0-0.1 [facility] Comment on above: Performed By: #### C BC ####[facility] Qljbegybyl90[address] [place], [place] [address]Dr. Villa Joaquín Basophils/100 WBC (Bld) 0.1 % Critically low 0.2-2.0 [facility] Comment on above: Performed By: #### C BC ####[facility] Sikogejwdr6047[address] [place], [place] [address]Dr. Villa Yanes EO # 0.0 103/ul Normal 0.0-0.7 [facility] Comment on above: Performed By: #### C BC ####[facility] Hoqtmhtogw1347[address] [place], [place] [address]Dr. Villa Joaquín Eosinophils/100 WBC (Bld) 0.1 % Critically low 0.9-7.0 [facility] Comment on above: Performed By: #### C BC ####[facility] Ylxdhmzkth1409[address] [place], [place] [address]Dr. Villa Yanes Erythrocyte distribution width (RBC) [Ratio] 12.6 % Normal 11.0-15.0 [facility] Comment on above: Performed By: #### C BC ####[facility] Zwrbkhkhir3397 [place] [address]Dr. Villa Yanes Hematocrit (Bld) [Volume fraction] 33.4 % Critically low 42.0-54.0 [facility] Comment on above: Performed By: #### C BC ####[facility] Bnmrdfqvnz1375 [place] [address]Dr. Villa Yanes Hemoglobin (Bld) [Mass/Vol] 10.5 g/dL Critically low 14.0-18.0 [facility] Comment on above: Performed By: #### C BC ####[facility] Vmrptvftlf3781 [place] [address]Dr. Villa Yanes IG # 0.12 10e3/ul Critically high 0.00-0.03 [facility] Comment on above: Performed By: #### C BC ####[facility] Xopiajebjv3647[address] [place], [place] [address]Dr. Villa Yanes IG % 0.9 % Critically high 0.0-0.5 [facility] Comment on above: Performed By: #### C BC ####[facility] Rcjwntppqs1588 [place] [address]Dr. Villa Yanes LYMPH # 0.5 103/ul Critically low 1.2-3.8 [facility] Comment on above: Performed By: #### C BC ####[facility] Anzyqiyniv8029 [place] [address]Dr. Villa Yanes Lymphocytes/100 WBC (Bld) 3.6 % Critically low 20.5-60.0 [facility] Comment on above: Performed By: #### C BC ####[facility] Akkviiknuk[address] [place] [address]Dr. Villa Yanes MANUAL DIFF REQ NO Normal [facility] Comment on above: Performed By: #### C BC ####[facility] Dhrtvhhtgf9[address] [place], [place] [address]Dr. Villa Yanes MCH (RBC) [Entitic mass] 31.4 pg Normal 25.9-34.0 [facility] Comment on above: Performed By: #### C BC ####[facility] Vrbsotoxhm8964 [place] [id number]. Villa Yanes MCHC (RBC) [Mass/Vol] 31.4 g/dL Normal 29.9-35.2 [facility] Comment on above: Performed By: #### C BC ####[facility] Mjhaximluv1493 [place] [id number]. Villa Yanes MCV (RBC) [Entitic vol] 100.0 fL Critically high 80.0-94.0 [facility] Comment on above: Performed By: #### C BC ####[facility] Guejudnuzc[address] [place], [place] [address]Dr. Villa Joaquín MONO # 0.2 103/ul Critically low 0.3-0.8 [facility] Comment on above: Performed By: #### C BC ####[facility] Ahgoniwwqs7817[address] [place], [place] [address]Dr. Villa Yanes Monocytes/100 WBC (Bld) 1.6 % Critically low 1.7-12.0 [facility] Comment on above: Performed By: #### C BC ####[facility] Kdivhtnflj7[address] [place], [place] [address]Dr. Villa Yanes NEUT # 12.5 103/ul Critically high 1.4-6.5 [facility] Comment on above: Performed By: #### C BC ####[facility] Jokogiugne3894[address] [place], [place] [address]Dr. Villa Yanes Neutrophils/100 WBC (Bld) 93.7 % Critically high 43.0-75.0 [facility] Comment on above: Performed By: #### C BC ####[facility] Frzjuiycwp4912[address] [place], [place] [address]Dr. Villa Yanes Platelet mean volume (Bld) [Entitic vol] 10.0 fL Normal 9.5-13.5 [facility] Comment on above: Performed By: #### C BC ####[facility] Bigiweczly[address] [place], [place] [address]Dr. Villa Yanes PLT 242 103/ul Normal 150-450 [facility] Comment on above: Performed By: #### C BC ####[facility] Tncsflobht8648 [place] [id number]. [place]karen Yanes RBC 3.34 106/ul Critically low 4.70-6.10 [facility] Comment on above: Performed By: #### C BC ####[facility] Feeirdejrw7[address] [place] [id number]. [place]karen Joaquín WBC 13.4 103/ul Critically high 4.0-11.0 [facility] Comment on above: Performed By: #### C BC ####[facility] Dzcvrggyfl9909 [place] [id number]. Villa Yanes POINT OF CARE GLUCOSEon Glucose [Mass/Vol] 238 mg/dL Critically high 74-106 [facility] Comment on above: Performed By: #### P OCGLUC ####[facility] Oydjbgmynd4810 [place] [address]Dr. Villa Yanes Glucose [Mass/Vol] 202 mg/dL Critically high 74-106 [facility] Comment on above: Performed By: #### P OCGLUC ####[facility] Uufwxmhvgz8735 [place] [address]Dr. Villa Yanes Glucose [Mass/Vol] 168 mg/dL Critically high 74-106 [facility] Comment on above: Performed By: #### P OCGLUC ####[facility] Cydkkpcbew7492 [place] [address]Dr. Villa Yanes PROF CHEM 8 (BAS METB)on Anion gap [Moles/Vol] 11.5 mmol/L Normal [facility] Comment on above: Performed By: #### B MP ####[facility] Ocfnlamozb0860 [place] [address]Dr. Villa Yanes Calcium [Mass/Vol] 8.9 mg/dL Normal 8.5-10.1 [facility] Comment on above: Performed By: #### B MP ####[facility] Fnfbyaohsh6779 [place] [address]Dr. Villa Yanes Chloride [Moles/Vol] 106 mmol/L Normal 98-107 [facility] Comment on above: Performed By: #### B MP ####[facility] Ncxlvyglmk9406 [place] [id number]. Villa Yanes CO2 [Moles/Vol] 25.3 mmol/L Normal 21.0-32.0 [facility] Comment on above: Performed By: #### B MP ####[facility] Aywhrnpygl3632 [place] [id number]. Villa Yanes Creatinine [Mass/Vol] 1.39 mg/dL Critically high 0.70-1.30 [facility] Comment on above: Performed By: #### B MP ####[facility] Ksifwqvobl7334 [place] [id number]. [place]karen Joaquín EGFR-AF MARTINIQUAIS 60 mL/min/1.73m2 Normal >=60 [facility] Comment on above: Performed By: #### B MP ####[facility] Nnnxdbuqvo0055 [place] [address]Dr. [place]karen Joaquín EGFR-NON AF MARTINIQUAIS 49 mL/min/1.73m2 Critically low >=60 [facility] Comment on above: Performed By: #### B MP ####[facility] Khxirujeny[address] [place] [address]Dr. Villa Joaquín Glucose [Mass/Vol] 191 mg/dL Critically high 74-106 [facility] Comment on above: Performed By: #### B MP ####[facility] Sospngwlqr7106 [place] [address]Dr. Villa Yanes Potassium [Moles/Vol] 4.8 mmol/L Normal 3.5-5.1 [facility] Comment on above: Performed By: #### B MP ####[facility] Bmdtrhvsjj[address] [place], [place] [address]Dr. Villa Yanes Sodium [Moles/Vol] 138 mmol/L Normal 136-145 [facility] Comment on above: Performed By: #### B MP ####[facility] Abxqkvrehk0041 [place] [address]Dr. Villa Yanes Urea nitrogen [Mass/Vol] 48.0 mg/dL Critically high 7.0-18.0 [facility] Comment on above: Performed By: #### B MP ####[facility] Kxmsuintbq[address] [place], [place] [address]Dr. Villa Yanes Urea nitrogen/Creatinine [Mass ratio] 34.5 mg/mg Normal [facility] Comment on above: Performed By: #### B MP ####[facility] Ervbjiwjno75[address] [place], [place] [address]Dr. Villa Yanes XR CHEST 2 Von 06-28-2022 XR CHEST 2 V Normal [facility] CBC AUTO DIFFon 06-27-2022 BASO # 0.0 103/ul Normal 0.0-0.1 [facility] Comment on above: Performed By: #### C BC ####[facility] Fynwijddqa[address] [place], [place] [address]Dr. Villa Yanes Basophils/100 WBC (Bld) 0.2 % Normal 0.2-2.0 [facility] Comment on above: Performed By: #### C BC ####[facility] Tbfxettsrh8[address] [place], [place] [address]Dr. Vlila Yanes EO # 0.0 103/ul Normal 0.0-0.7 [facility] Comment on above: Performed By: #### C BC ####[facility] Nwfkdbinwg40[address] [place], [place] [address]Dr. Villa Yanes Eosinophils/100 WBC (Bld) 0.0 % Critically low 0.9-7.0 [facility] Comment on above: Performed By: #### C BC ####[facility] Eupbsgusvn66[address] [place], [place] [address]Dr. Villa Yanes Erythrocyte distribution width (RBC) [Ratio] 12.6 % Normal 11.0-15.0 [facility] Comment on above: Performed By: #### C BC ####[facility] Ohbtbtnkia[address] [place], [place] [address]Dr. Villa Yanes Hematocrit (Bld) [Volume fraction] 33.9 % Critically low 42.0-54.0 [facility] Comment on above: Performed By: #### C BC ####[facility] [address] [place] [address]Dr. Villa Yanes Hemoglobin (Bld) [Mass/Vol] 10.7 g/dL Critically low 14.0-18.0 [facility] Comment on above: Performed By: #### C BC ####[facility] [address]chp[address] [place] [id number]. Villa Yanes IG # 0.08 10e3/ul Critically high 0.00-0.03 [facility] Comment on above: Performed By: #### C BC ####[facility] Zvxvhsiany2044 [place] [address]Dr. Villa Yanes IG % 1.3 % Critically high 0.0-0.5 [facility] Comment on above: Performed By: #### C BC ####[facility] Ktzpazvlpd18[address] [place] [address]Dr. Villa Yanes LYMPH # 0.3 103/ul Critically low 1.2-3.8 [facility] Comment on above: Performed By: #### C BC ####[facility] Xkmrzqjvfu80[address] [place] [address]Dr. Villa Yanes Lymphocytes/100 WBC (Bld) 5.1 % Critically low 20.5-60.0 [facility] Comment on above: Performed By: #### C BC ####[facility] Ltgpjbchlq[address] [place] [address]Dr. Villa Yanes MANUAL DIFF REQ NO Normal [facility] Comment on above: Performed By: #### C BC ####[facility] Xpnnwlywnk5073 [place] [address]Dr. Villa Yanes MCH (RBC) [Entitic mass] 31.4 pg Normal 25.9-34.0 [facility] Comment on above: Performed By: #### C BC ####[facility] Zujvavmpus0588 [place] [address]Dr. Villa Yanes MCHC (RBC) [Mass/Vol] 31.6 g/dL Normal 29.9-35.2 [facility] Comment on above: Performed By: #### C BC ####[facility] Vgohgkvthq4[address] [place] [id number]. Villa Yanes MCV (RBC) [Entitic vol] 99.4 fL Critically high 80.0-94.0 [facility] Comment on above: Performed By: #### C BC ####[facility] Fzjvqjkrtc46[address] [place] [address]Dr. Villa Yanes MONO # 0.0 103/ul Critically low 0.3-0.8 [facility] Comment on above: Performed By: #### C BC ####[facility] Cbqbagqpfu4835 [place] [address]Dr. Villa Yanes Monocytes/100 WBC (Bld) 0.7 % Critically low 1.7-12.0 [facility] Comment on above: Performed By: #### C BC ####[facility] Dfesnxdhqv[address] [place], [place] [address]Dr. Villa Yanes NEUT # 5.6 103/ul Normal 1.4-6.5 [facility] Comment on above: Performed By: #### C BC ####[facility] Iwvotcteki[address] [place], [place] [address]Dr. Villa Yanes Neutrophils/100 WBC (Bld) 92.7 % Critically high 43.0-75.0 [facility] Comment on above: Performed By: #### C BC ####[facility] Xnychxumzr91[address] [place], [place] [address]Dr. Villa Yanes Platelet mean volume (Bld) [Entitic vol] 9.7 fL Normal 9.5-13.5 [facility] Comment on above: Performed By: #### C BC ####[facility] Dfnddiwnit[address] [place], [place] [id number]. Villa Joaquín PLT 221 103/ul Normal 150-450 [facility] Comment on above: Performed By: #### C BC ####[facility] Wphtzvlsdy[address] [place], [place] [id number]. Brooklynkaren Joaquín RBC 3.41 106/ul Critically low 4.70-6.10 [facility] Comment on above: Performed By: #### C BC ####[facility] Pvbvjmuybv8826 [place] [address]Dr. Villa Yanes WBC 6.1 103/ul Normal 4.0-11.0 [facility] Comment on above: Performed By: #### C BC ####[facility] Snyxmzxrmv[address] [place], [place] [address]Dr. Villa Joaquín POINT OF CARE GLUCOSEon Glucose [Mass/Vol] 236 mg/dL Critically high 74-106 [facility] Comment on above: Performed By: #### P OCGLUC ####[facility] Fvkyeczgco[address] [place], [place] [address]Dr. Villa Yanes Glucose [Mass/Vol] 156 mg/dL Critically high 74-106 [facility] Comment on above: Performed By: #### P OCGLUC ####[facility] Lmwhlfopwv[address] [place], [place] [address]Dr. Villa Yanes Glucose [Mass/Vol] 229 mg/dL Critically high -106 [facility] Comment on above: Performed By: #### P OCGLUC ####[facility] Whtfrnrsbm18[address] [place], [place] [address]Dr. Brooklynkaren Yanes PROF CHEM 8 (BAS METB)on Anion gap [Moles/Vol] 12.7 mmol/L Normal [facility] Comment on above: Performed By: #### B MP ####[facility] Agneoqtsik9766[address] [place], [place] [address]Dr. Villa Joaquín Calcium [Mass/Vol] 8.4 mg/dL Critically low 8.5-10.1 [facility] Comment on above: Performed By: #### B MP ####[facility] Kofwczvakt53[address] [place], [place] [address]Dr. Villa Joaquín Chloride [Moles/Vol] 103 mmol/L Normal 98-107 [facility] Comment on above: Performed By: #### B MP ####[facility] Wgiubsvxjj[address] [place], [place] [address]Dr. Villa Yanes CO2 [Moles/Vol] 24.1 mmol/L Normal 21.0-32.0 [facility] Comment on above: Performed By: #### B MP ####[facility] Ybzgsnpfhy3[address] [place] [id number]. Villa Yanes Creatinine [Mass/Vol] 1.34 mg/dL Critically high 0.70-1.30 [facility] Comment on above: Performed By: #### B MP ####[facility] Vheoevqnsd38[address] [place] [id number]. Villa Joaquín EGFR-AF MARTINIQUAIS >60 Normal >=60 [facility] Comment on above: Performed By: #### B MP ####[facility] Pdgxrfdqzw0143 [place] [address]Dr. Villa Joaquín EGFR-NON AF MARTINIQUAIS 51 mL/min/1.73m2 Critically low >=60 [facility] Comment on above: Performed By: #### B MP ####[facility] Fnccioeale[address] [place], [place] [address]Dr. Villa Yanes Glucose [Mass/Vol] 249 mg/dL Critically high 74-106 [facility] Comment on above: Performed By: #### B MP ####[facility] Wgekxryeiu8848 [place] [address]Dr. Villa Yanes Potassium [Moles/Vol] 4.8 mmol/L Normal 3.5-5.1 [facility] Comment on above: Performed By: #### B MP ####[facility] Tnhecpbise[address] [place], [place] [address]Dr. Villa Yanes Sodium [Moles/Vol] 135 mmol/L Critically low 136-145 [facility] Comment on above: Performed By: #### B MP ####[facility] Qttorcllft1433 [place] [address]Dr. Villa Yanes Urea nitrogen [Mass/Vol] 37.0 mg/dL Critically high 7.0-18.0 [facility] Comment on above: Performed By: #### B MP ####[facility] Rrylbatbud7[address] [place], [place] [address]Dr. Villa Yanes Urea nitrogen/Creatinine [Mass ratio] 27.6 mg/mg Normal [facility] Comment on above: Performed By: #### B MP ####[facility] Qqwzypjgiz5246 [place] [address]Dr. Villa Joaquín T3, TOTAL (TRIIODOTHYRONINE) on 06-27-2022 T3, TOTAL 70 ng/dL Critically low 71-180 [facility] Comment on above: Performed By: #### T 3TOTAL ####[facility] Bweswicyhd75[address] [place] [address]Dr. Villa Joaquín CBC AUTO DIFFon 06-26-2022 BASO # 0.0 103/ul Normal 0.0-0.1 [facility] Comment on above: Performed By: #### C BC ####[facility] Hbutpcqoff6[address] [place], [place] [address]Dr. Villa Yanes Basophils/100 WBC (Bld) 0.3 % Normal 0.2-2.0 [facility] Comment on above: Performed By: #### C BC ####[facility] Cexxhdudcz[address] [place], [place] [address]Dr. Villa Yanes EO # 0.1 103/ul Normal 0.0-0.7 [facility] Comment on above: Performed By: #### C BC ####[facility] Exdqffcway[address] [place], [place] [address]Dr. Brooklynkaren Yanes Eosinophils/100 WBC (Bld) 0.4 % Critically low 0.9-7.0 [facility] Comment on above: Performed By: #### C BC ####[facility] Cmnutoinas[address] [place], [place] [address]Dr. Brooklynkaren Joaquín Erythrocyte distribution width (RBC) [Ratio] 12.3 % Normal 11.0-15.0 [facility] Comment on above: Performed By: #### C BC ####[facility] [address]zikzgamwr[address] [place], [place] [address]Dr. Villa Yanes Hematocrit (Bld) [Volume fraction] 34.6 % Critically low 42.0-54.0 [facility] Comment on above: Performed By: #### C BC ####[facility] Takhpvjgle24[address] [place], [place] [address]Dr. Villa Yanes Hemoglobin (Bld) [Mass/Vol] 11.6 g/dL Critically low 14.0-18.0 [facility] Comment on above: Performed By: #### C BC ####[facility] Qdmdaimfka8860 [place] [address]DrBrenden Yanes IG # 0.13 10e3/ul Critically high 0.00-0.03 [facility] Comment on above: Performed By: #### C BC ####[facility] Ptmgqqdscj8341 [place] [address]DrBrenden Yanes IG % 1.0 % Critically high 0.0-0.5 [facility] Comment on above: Performed By: #### C BC ####[facility] Pgiqcmjeta3142 [place] [address]DrBrenden Yanes LYMPH # 1.6 103/ul Normal 1.2-3.8 [facility] Comment on above: Performed By: #### C BC ####[facility] Kvvvzmgztz5053 [place] [address]DrBrenden Yanes Lymphocytes/100 WBC (Bld) 11.9 % Critically low 20.5-60.0 [facility] Comment on above: Performed By: #### C BC ####[facility] Mcdyxnbwwf5111 [place] [address]DrBrenden Yanes MANUAL DIFF REQ NO Normal [facility] Comment on above: Performed By: #### C BC ####[facility] Ewkmoxwves9646 [place] [address]DrBrenden Yanes MCH (RBC) [Entitic mass] 32.3 pg Normal 25.9-34.0 [facility] Comment on above: Performed By: #### C BC ####[facility] Tfboexdqle6900 [place] [id number] Yanes MCHC (RBC) [Mass/Vol] 33.5 g/dL Normal 29.9-35.2 [facility] Comment on above: Performed By: #### C BC ####[facility] Pwljmzksip0096 [place] [id number] Yanes MCV (RBC) [Entitic vol] 96.4 fL Critically high 80.0-94.0 [facility] Comment on above: Performed By: #### C BC ####[facility] Sfmsuflqgb7387 [place] [id number]. Villa Yanes MONO # 0.7 103/ul Normal 0.3-0.8 [facility] Comment on above: Performed By: #### C BC ####[facility] Qvkclkfgqw1805 [place] [phone]. Villa Joaquín Monocytes/100 WBC (Bld) 5.6 % Normal 1.7-12.0 [facility] Comment on above: Performed By: #### C BC ####[facility] Eutzsjfgwt8059 [place] [address]Dr. Villa Yanes NEUT # 10.5 103/ul Critically high 1.4-6.5 [facility] Comment on above: Performed By: #### C BC ####[facility] Gvamerjgck3195 [place] [address]Dr. Villa Yanes Neutrophils/100 WBC (Bld) 80.8 % Critically high 43.0-75.0 [facility] Comment on above: Performed By: #### C BC ####[facility] Ocumejzfeh0399 [place] [address]Dr. Villa Joaquín Platelet mean volume (Bld) [Entitic vol] 9.1 fL Critically low 9.5-13.5 [facility] Comment on above: Performed By: #### C BC ####[facility] Hotcstlnft04[address] [place] [id number]. Villa Joaquín PLT 266 103/ul Normal 150-450 [facility] Comment on above: Performed By: #### C BC ####[facility] Ffyseuhsxq3145 [place] [id number]. Villa Yanes RBC 3.59 106/ul Critically low 4.70-6.10 [facility] Comment on above: Performed By: #### C BC ####[facility] Xzxgwqcynd5896 [place] [phone]. Villa Yanes WBC 13.1 103/ul Critically high 4.0-11.0 [facility] Comment on above: Performed By: #### C BC ####[facility] Bobnrhetoh[address] [place] [address]Dr. Villa Yanes CULTURE URINEon 06-26-2022 CULTURE URINE Culture Observations : LIGHT GROWTH OF MIXED SKIN ARACELI. NO POTENTIAL PATHOGENS SEEN. Normal [facility] Comment on above: Performed By: #### U RCX ####[facility] [address]hrjcnzpxb[address] [place], [place] [address]Dr. Villa Joaquín LACTATE/LACTIC ACIDon 2022 Lactate [Moles/Vol] 1.0 mmol/L Normal 0.4-1.9 [facility] Comment on above: Performed By: #### L ACT ####[facility] Aydpatrimc[address] [place], [place] [address]Dr. Villa Yanes POINT OF CARE GLUCOSEon Glucose [Mass/Vol] 242 mg/dL Critically high 74-106 [facility] Comment on above: Performed By: #### P OCGLUC ####[facility] Zkcfqukfrk[address] [place], [place] [address]Dr. Villa Yanes Glucose [Mass/Vol] 140 mg/dL Critically high 74-106 [facility] Comment on above: Performed By: #### P OCGLUC ####[facility] Hrzpbzwwpk[address] [place], [place] [address]Dr. Villa Yanes PROF 14(COMP METB)on 023 Albumin [Mass/Vol] 3.0 g/dL Critically low 3.4-5.0 [facility] Comment on above: Performed By: #### C MP, T4, TSH ####[facility] Jflumkhdop7314 [place] [address]Dr. Villa Yanes Albumin/Globulin [Mass ratio] 0.9 {ratio} Normal [facility] Comment on above: Performed By: #### C MP, T4, TSH ####[facility] Nmwmoormcl4034 [place] [address]Dr. Villa Yanes ALP [Catalytic activity/Vol] 175 U/L Critically high 46-116 [facility] Comment on above: Performed By: #### C MP, T4, TSH ####[facility] Gmcxeazsev1530 [place] [address]Dr. Villa Yanes ALT [Catalytic activity/Vol] 12 U/L Critically low 16-63 [facility] Comment on above: Performed By: #### C MP, T4, TSH ####[facility] Cyzudpkiaz7919 [place] [address]Dr. Villa Yanes Anion gap [Moles/Vol] 11.1 mmol/L Normal [facility] Comment on above: Performed By: #### C MP, T4, TSH ####[facility] Gwwqpghhnu5543 [place] [address]Dr. Villa Yanes AST [Catalytic activity/Vol] 12 U/L Critically low 15-37 [facility] Comment on above: Performed By: #### C MP, T4, TSH ####[facility] Rbmwuaayaq9[address] [place], [place] [address]Dr. Villa Yanes Bilirubin [Mass/Vol] 0.5 mg/dL Normal 0.2-1.0 [facility] Comment on above: Performed By: #### C MP, T4, TSH ####[facility] Fjdeoqraap[address] [place], [place] [address]Dr. Villa Yanes Calcium [Mass/Vol] 9.0 mg/dL Normal 8.5-10.1 [facility] Comment on above: Performed By: #### C MP, T4, TSH ####[facility] Cncybmjjtb[address] [place], [place] [address]Dr. Villa Yanes Chloride [Moles/Vol] 104 mmol/L Normal 98-107 [facility] Comment on above: Performed By: #### C MP, T4, TSH ####[facility] Kmcznsvvqn95[address] [place], [place] [address]Dr. Villa Yanes CO2 [Moles/Vol] 28.2 mmol/L Normal 21.0-32.0 [facility] Comment on above: Performed By: #### C MP, T4, TSH ####[facility] Bscffvbrqg[address] [place], [place] [address]Dr. Villa Yanes Creatinine [Mass/Vol] 1.23 mg/dL Normal 0.70-1.30 [facility] Comment on above: Performed By: #### C MP, T4, TSH ####[facility] Xazzvwimyt8420 [place] [address]Dr. Villa Yanes EGFR-AF MARTINIQUAIS >60 Normal >=60 [facility] Comment on above: Performed By: #### C MP, T4, TSH ####[facility] Hzgyngpyls2585 [place] [address]Dr. Villa Yanes EGFR-NON AF MARTINIQUAIS 57 mL/min/1.73m2 Critically low >=60 [facility] Comment on above: Performed By: #### C MP, T4, TSH ####[facility] Yuqhgsndow3430 [place] [address]Dr. Villa Yanes Globulin (S) [Mass/Vol] 3.3 g/dL Normal [facility] Comment on above: Performed By: #### C MP, T4, TSH ####[facility] Czpxynojzf1906 [place] [address]Dr. Villa Yaens Glucose [Mass/Vol] 122 mg/dL Critically high 74-106 [facility] Comment on above: Performed By: #### C MP, T4, TSH ####[facility] Rslmjyaqbl8122 [place] [address]Dr. Villa Yanes Potassium [Moles/Vol] 4.3 mmol/L Normal 3.5-5.1 [facility] Comment on above: Performed By: #### C MP, T4, TSH ####[facility] Hvsqnoajvy3982 [place] [address]Dr. Villa Yanes Protein [Mass/Vol] 6.3 g/dL Critically low 6.4-8.2 [facility] Comment on above: Performed By: #### C MP, T4, TSH ####[facility] Sjljodttta5948 [place] [address]Dr. Villa Yanes Sodium [Moles/Vol] 139 mmol/L Normal 136-145 [facility] Comment on above: Performed By: #### C MP, T4, TSH ####[facility] Yjmqgqpjqj5929 [place] [address]Dr. Villa Yanes Urea nitrogen [Mass/Vol] 29.0 mg/dL Critically high 7.0-18.0 [facility] Comment on above: Performed By: #### C MP, T4, TSH ####[facility] Hynrtswbrf5152 [place] [address]Dr. Villa Yanes Urea nitrogen/Creatinine [Mass ratio] 23.6 mg/mg Normal [facility] Comment on above: Performed By: #### C MP, T4, TSH ####[facility] Iiptljqdmn8942 [place] [address]Dr. Villa Yanes T4on 06-26-2022 T4 [Mass/Vol] 5.80 ug/dL Normal 4.50-12.10 [facility] Comment on above: Performed By: #### C MP, T4, TSH ####[facility] Czcpqecpuk7842 [place] [address]Dr. Villa Yanes TSHon 06-26-2022 TSH 0.281 uIU/mL Critically low 0.358-3.740 [facility] Comment on above: Performed By: #### C MP, T4, TSH ####[facility] Omuicypuql9484 [place] [address]Dr. Villa Yanes UA RANDOM W/MICROSCOPICon BACTERIA TRACE Abnormal NONE SEEN [facility] Comment on above: Performed By: #### U AMIC ####[facility] Gogpyejzxg9341 [place] [address]Dr. Villa Yanes Bilirubin Ql (U) Negative Normal NEGATIVE [facility] Comment on above: Performed By: #### U AMIC ####[facility] Eygdcdhtpw1689 [place] [address]Dr. Villa Yanes CAST NONE SEEN Normal NONE SEEN [facility] Comment on above: Performed By: #### U AMIC ####[facility] Zbdvpttizf3150 [place] [address]Dr. Villa Yanes Clarity (U) CLEAR Normal CLEAR [facility] Comment on above: Performed By: #### U AMIC ####[facility] Xflfulwsak9057 [place] [id number]. [place]karen Yanes Color (U) YELLOW Normal YELLOW [facility] Comment on above: Performed By: #### U AMIC ####[facility] Xuhhmnroui4[address] [place] [id number]. [place]karen Yanes Crystals LM Nom (Urine sed) NONE SEEN Normal NONE SEEN [facility] Comment on above: Performed By: #### U AMIC ####[facility] Yrxrhjntil[address] [place], [place] [address]Dr. Villa Joaquín Epithelial cells LM Ql (Urine sed) RARE Normal NONE SEEN /RARE [facility] Comment on above: Performed By: #### U AMIC ####[facility] Sebazulbro0[address] [place], [place] [address]Dr. Villa Yanes Glucose Ql (U) Negative Normal NEGATIVE [facility] Comment on above: Performed By: #### U AMIC ####[facility] Enuwqcgxoq6[address] [place], [place] [address]Dr. Villa Yanes Hemoglobin Ql (U) Negative Normal NEGATIVE [facility] Comment on above: Performed By: #### U AMIC ####[facility] Twwrceaaat07[address] [place], [place] [address]Dr. Villa Yanes Ketones Ql (U) Negative Normal NEGATIVE [facility] Comment on above: Performed By: #### U AMIC ####[facility] Aueqbzumyw[address] [place], [place] [address]Dr. Yilan Yanes LEUKOCYTES Negative Normal NEGATIVE [facility] Comment on above: Performed By: #### U AMIC ####[facility] Bwnrcibcux[address] [place], [place] [address]Dr. Yilan Yanes MUCOUS NONE SEEN Normal NONE SEEN [facility] Comment on above: Performed By: #### U AMIC ####[facility] Twkduvufip[address] [place], [place] [address]Dr. Yilan Yanes Nitrite Ql (U) Negative Normal NEGATIVE [facility] Comment on above: Performed By: #### U AMIC ####[facility] Hslxqvqhnw12[address] [place], [place] [address]Dr. Yilan Yanes pH (U) 5.5 [pH] Normal 5-9 [facility] Comment on above: Performed By: #### U AMIC ####[facility] Uejuvedbol3343 [place] [address]Dr. Villa Yanes RBC 0-2 Normal 0-2 [facility] Comment on above: Performed By: #### U AMIC ####[facility] Knfudfoijz0647 [place] [address]Dr. Villa Yanes SPEC GRAVITY 1.025 Normal 1.005-<=1.0 25 [facility] Comment on above: Performed By: #### U AMIC ####[facility] [address]mtsaapbxc0[address] [place], [place] [address]Dr. Villa Yanes UA PROTEIN 100 mg/dl Abnormal NEGATIVE/ TRACE [facility] Comment on above: Performed By: #### U AMIC ####[facility] [address]xqjctzxqs[address] [place], [place] [address]Dr. Villa Yanes Urobilinogen Qn (U) 0.2 {Mackenzie'U}/dL Normal 0.2 - 1. 0 [facility] Comment on above: Performed By: #### U AMIC ####[facility] Agbfvnrdjl4[address] [place], [place] [address]Dr. Villa Yanes WBC NONE SEEN Normal NONE SEEN [facility] Comment on above: Performed By: #### U AMIC ####[facility] Bbwxayzbwt[address] [place], [place] [address]Dr. Villa Yanes MRI LSPINE WO CONon 06-10-19 MRI LSPINE WO CON Normal [facility] CBC AUTO DIFFon 06-06-2022 BASO # 0.0 103/ul Normal 0.0-0.1 [facility] Comment on above: Performed By: #### C BC ####[facility] Udbuiolhor[address] [place], [place] [address]Dr. Brooklynkaren Yanes Basophils/100 WBC (Bld) 0.4 % Normal 0.2-2.0 [facility] Comment on above: Performed By: #### C BC ####[facility] Biungmkmcv0917 [place] [address]Dr. Villa Yanes EO # 0.1 103/ul Normal 0.0-0.7 [facility] Comment on above: Performed By: #### C BC ####[facility] Abgquqeywj4[address] [place], [place] [address]Dr. Villa Yanes Eosinophils/100 WBC (Bld) 0.6 % Critically low 0.9-7.0 [facility] Comment on above: Performed By: #### C BC ####[facility] Cjovmelzxt[address] [place], [place] [address]Dr. Villa Yanes Erythrocyte distribution width (RBC) [Ratio] 12.6 % Normal 11.0-15.0 [facility] Comment on above: Performed By: #### C BC ####[facility] Rwtwdbwrsf[address] [place], [place] [address]Dr. Villa Yanes Hematocrit (Bld) [Volume fraction] 34.1 % Critically low 42.0-54.0 [facility] Comment on above: Performed By: #### C BC ####[facility] Mxwudhayky[address] [place], [place] [address]Dr. Villa Yanes Hemoglobin (Bld) [Mass/Vol] 11.3 g/dL Critically low 14.0-18.0 [facility] Comment on above: Performed By: #### C BC ####[facility] Maudlspbbb[address] [place], [place] [address]Dr. Villa Yanes IG # 0.14 10e3/ul Critically high 0.00-0.03 [facility] Comment on above: Performed By: #### C BC ####[facility] Kwzqhfduhb67[address] [place], [place] [address]Dr. Villa Yanes IG % 1.2 % Critically high 0.0-0.5 [facility] Comment on above: Performed By: #### C BC ####[facility] Txuymhgxtm[address] [place], [place] [address]Dr. [place]karen Yanes LYMPH # 1.1 103/ul Critically low 1.2-3.8 [facility] Comment on above: Performed By: #### C BC ####[facility] Suneqwkkfz[address] [place] [id number]. Villa Yanes Lymphocytes/100 WBC (Bld) 9.8 % Critically low 20.5-60.0 [facility] Comment on above: Performed By: #### C BC ####[facility] Azsdpusvtn0305 [place] [id number]. Villa Joaquín MANUAL DIFF REQ NO Normal [facility] Comment on above: Performed By: #### C BC ####[facility] Lijmklxlls0548 [place] [address]Dr. Villa Joaquín MCH (RBC) [Entitic mass] 31.9 pg Normal 25.9-34.0 [facility] Comment on above: Performed By: #### C BC ####[facility] Mkrcydzvbj1716 [place] [address]Dr. Villa Joaquín MCHC (RBC) [Mass/Vol] 33.1 g/dL Normal 29.9-35.2 [facility] Comment on above: Performed By: #### C BC ####[facility] Ysuxiccozq9734 [place] [address]Dr. Villa Joaquín MCV (RBC) [Entitic vol] 96.3 fL Critically high 80.0-94.0 [facility] Comment on above: Performed By: #### C BC ####[facility] Dulewyzcuz0523 [place] [address]Dr. Brooklynkaren Joaquín MONO # 0.8 103/ul Normal 0.3-0.8 [facility] Comment on above: Performed By: #### C BC ####[facility] Acoynylrhi4469 [place] [address]Dr. Brooklynkaren Yanes Monocytes/100 WBC (Bld) 6.7 % Normal 1.7-12.0 [facility] Comment on above: Performed By: #### C BC ####[facility] Lnwwtcqfwn8707 [place] [address]Dr. Villa Yanes NEUT # 9.2 103/ul Critically high 1.4-6.5 [facility] Comment on above: Performed By: #### C BC ####[facility] Hkvhrwolcp2732 [place] [id number]. Villa Yanes Neutrophils/100 WBC (Bld) 81.3 % Critically high 43.0-75.0 [facility] Comment on above: Performed By: #### C BC ####[facility] Pghtzmdtst0932 [place] [address]Dr. Villa Yanes Platelet mean volume (Bld) [Entitic vol] 9.2 fL Critically low 9.5-13.5 [facility] Comment on above: Performed By: #### C BC ####[facility] Jzswlyizmv1293 [place] [id number]. Villa Joaquín PLT 255 103/ul Normal 150-450 [facility] Comment on above: Performed By: #### C BC ####[facility] Kziehpkbsw3972 [place] [address]Dr. Villa Joaquín RBC 3.54 106/ul Critically low 4.70-6.10 [facility] Comment on above: Performed By: #### C BC ####[facility] Uubjuxeyjr8766 [place] [id number]. Villa Joaquín WBC 11.3 103/ul Critically high 4.0-11.0 [facility] Comment on above: Performed By: #### C BC ####[facility] Duiofggqtx3697 [place] [phone]. Villa Yanes ER URINE PROFILEon 3 Bilirubin Ql (U) Negative Normal NEGATIVE [facility] Comment on above: Performed By: #### ANGELIA CAMARENARO ####[facility] Aespzpmpts4379 [place] [id number]. [place]karen Yanes Clarity (U) CLEAR Normal CLEAR [facility] Comment on above: Performed By: #### ANGELIA CAMARENARO ####[facility] Mohflowyoj1367 [place] [phone]. Villa Yanes Color (U) LT. YELLOW Normal YELLOW [facility] Comment on above: Performed By: #### ANGELIA CAMARENARO ####[facility] Mutyuoedav5935 [place] [phone]. Villa PENG A micrscopic examina tion will be performed if indicated. Normal [facility] Comment on above: Performed By: #### ROBERTO CARLSO CAMARENA ####[facility] Jpruchiomi8238 [place] [address]Dr. Villa Yanes Glucose Ql (U) Negative Normal NEGATIVE [facility] Comment on above: Performed By: #### ANGELIA CAMARENARO ####[facility] Cbwvxnfhxk8205 [place] [address]Dr. Villa Yanes Hemoglobin Ql (U) Negative Normal NEGATIVE [facility] Comment on above: Performed By: #### ANGELIA CAMARENARO ####[facility] Rewnojyfdg[address] [place], [place] [address]Dr. Villa Yanes Ketones Ql (U) Negative Normal NEGATIVE [facility] Comment on above: Performed By: #### ANGELIA CAMARENARO ####[facility] Vrkjbmmiqt99[address] [place], [place] [address]Dr. Villa Yanes LEUKOCYTES Negative Normal NEGATIVE [facility] Comment on above: Performed By: #### ANGELIA CAMARENARO ####[facility] Rtghjgjsfm9[address] [place], [place] [address]Dr. Villa Yanes Nitrite Ql (U) Negative Normal NEGATIVE [facility] Comment on above: Performed By: #### ANGELIA CAMARENARO ####[facility] Ihccmqjzoz33[address] [place], [place] [address]Dr. Villa Yanes pH (U) 5.5 [pH] Normal 5-9 [facility] Comment on above: Performed By: #### ANGELIA CAMARENARO ####[facility] Dhsbfufkmd7184 [place] [address]Dr. Villa Yanes Protein (U) [Mass/Vol] 300 mg/dL Abnormal NEGATIVE/ TRACE [facility] Comment on above: Performed By: #### ANGELIA CAMARENARO ####[facility] Ogqxplpqem7885 [place] [address]Dr. Villa Yanes SPEC GRAVITY 1.025 Normal 1.005-<=1.0 25 [facility] Comment on above: Performed By: #### ROBERTO CARLOS CAMARENA ####[facility] Tdcsosexxe9070 [place] [address]Dr. Villa Yanes UR MICRO IND INDICATED Normal [facility] Comment on above: Performed By: #### ROBERTO CARLOS CAMARENA ####[facility] Aroocvaaya9739 [place] [address]Dr. Villa Yanes Urobilinogen Qn (U) 0.2 {Mackenzie'U}/dL Normal 0.2 - 1. 0 [facility] Comment on above: Performed By: #### ROBERTO CARLOS CAMARENA ####[facility] Ezizlbaiwc2797 [place] [address]DrBrenden Yanes PROF 14(COMP METB)on 023 Albumin [Mass/Vol] 2.7 g/dL Critically low 3.4-5.0 [facility] Comment on above: Performed By: #### C MP ####[facility] Jpebhfkujr[address] [place], [place] [address]Dr. Villa Yanes Albumin/Globulin [Mass ratio] 0.8 {ratio} Normal [facility] Comment on above: Performed By: #### C MP ####[facility] Incrtyhogj7546[address] [place], [place] [address]Dr. Villa Yanes ALP [Catalytic activity/Vol] 206 U/L Critically high 46-116 [facility] Comment on above: Performed By: #### C MP ####[facility] Whwkjybegc80[address] [place], [place] [address]DrBrenden Yanes ALT [Catalytic activity/Vol] 8 U/L Critically low 16-63 [facility] Comment on above: Performed By: #### C MP ####[facility] Vjhnrnioiv18[address] [place], [place] [address]DrBrenden aYnes Anion gap [Moles/Vol] 12.4 mmol/L Normal [facility] Comment on above: Performed By: #### C MP ####[facility] Jtwjhhzaol[address] [place], [place] [address]Dr. Villa Yanes AST [Catalytic activity/Vol] 9 U/L Critically low 15-37 [facility] Comment on above: Performed By: #### C MP ####[facility] Xwrefsxkwd0449 [place] [address]Dr. Villa Yanes Bilirubin [Mass/Vol] 0.2 mg/dL Normal 0.2-1.0 [facility] Comment on above: Performed By: #### C MP ####[facility] Ubfowjqsxc670[address] [place], [place] [address]Dr. Villa Joaquín Calcium [Mass/Vol] 8.9 mg/dL Normal 8.5-10.1 [facility] Comment on above: Performed By: #### C MP ####[facility] Erraybcxrk7208[address] [place], [place] [address]Dr. Brooklynkaren Joaquín Chloride [Moles/Vol] 106 mmol/L Normal 98-107 [facility] Comment on above: Performed By: #### C MP ####[facility] Trjixaxxlq4058[address] [place], [place] [address]Dr. Villa Joaquín CO2 [Moles/Vol] 27.4 mmol/L Normal 21.0-32.0 [facility] Comment on above: Performed By: #### C MP ####[facility] Ktgbzgqrji3690[address] [place], [place] [address]Dr. Villa Joaquín Creatinine [Mass/Vol] 1.26 mg/dL Normal 0.70-1.30 [facility] Comment on above: Performed By: #### C MP ####[facility] Ivprqcglzr[address] [place], [place] [address]Dr. Brooklynkaren Joaquín EGFR-AF MARTINIQUAIS >60 Normal >=60 [facility] Comment on above: Performed By: #### C MP ####[facility] Aiwmcjytrk1825[address] [place], [place] [address]Dr. Villa Yanes EGFR-NON AF MARTINIQUAIS 55 mL/min/1.73m2 Critically low >=60 [facility] Comment on above: Performed By: #### C MP ####[facility] Frlsqkukax4598[address] [place], [place] [address]Dr. Villa Yanes Globulin (S) [Mass/Vol] 3.5 g/dL Normal [facility] Comment on above: Performed By: #### C MP ####[facility] Jhrefhsjys6397 [place] [id number]. Villa Yanes Glucose [Mass/Vol] 125 mg/dL Critically high 74-106 [facility] Comment on above: Performed By: #### C MP ####[facility] Qexzojbiij0432 [place] [phone]. Villa Yanes Potassium [Moles/Vol] 3.8 mmol/L Normal 3.5-5.1 [facility] Comment on above: Performed By: #### C MP ####[facility] Yrdzryrqhb8191 [place] [address]Dr. Villa Yanes Protein [Mass/Vol] 6.2 g/dL Critically low 6.4-8.2 [facility] Comment on above: Performed By: #### C MP ####[facility] Jejglvctjg242[address] [place], [place] [address]Dr. Villa Yanes Sodium [Moles/Vol] 142 mmol/L Normal 136-145 [facility] Comment on above: Performed By: #### C MP ####[facility] Vtcktwulct78[address] [place], [place] [address]Dr. Villa Yanes Urea nitrogen [Mass/Vol] 30.0 mg/dL Critically high 7.0-18.0 [facility] Comment on above: Performed By: #### C MP ####[facility] Yxeeylnlxr6112[address] [place], [place] [address]Dr. Villa Yanes Urea nitrogen/Creatinine [Mass ratio] 23.8 mg/mg Normal [facility] Comment on above: Performed By: #### C MP ####[facility] Gjlwrnhego0451 [place] [id number]. Villa Joaquín URINE MICROSCOPIC ONLYon BACTERIA NONE SEEN Normal NONE SEEN [facility] Comment on above: Performed By: #### E ROBERTO CARLOS DAWN ####[facility] Awmukismfr2770 [place] [id number]. Villa Joaquín Bacteria identified Cx Nom (U) NOT INDICATED Normal [facility] Comment on above: Performed By: #### Riddhi DAWN UMICRO ####[facility] Yfujmbtnrz0555 [place] [address]Dr. Villa Yanes CAST SEEN Abnormal NONE SEEN [facility] Comment on above: Performed By: #### Riddhi DAWN UMICRO ####[facility] Gbiqprgmsg4298 [place] [address]Dr. Villa Yanes Crystals LM Nom (Urine sed) NONE SEEN Normal NONE SEEN [facility] Comment on above: Performed By: #### Riddhi DAWN UMICRO ####[facility] Rragnrkyxj6586 [place] [address]Dr. Villa Yanes Epithelial cells LM Ql (Urine sed) NONE SEEN Normal NONE SEEN /RARE [facility] Comment on above: Performed By: #### Riddhi DAWN UMICRO ####[facility] Qsndcebern9[address] [place], [place] [address]Dr. Villa Yanes MUCOUS NONE SEEN Normal NONE SEEN [facility] Comment on above: Performed By: #### Riddhi DAWN UMICRO ####[facility] Cllfjyeacc99[address] [place], [place] [address]Dr. Villa Yanes RBC NONE SEEN Abnormal 0-2 [facility] Comment on above: Performed By: #### Riddhi DAWN UMICRO ####[facility] Vibawxmuke1665 [place] [address]Dr. Villa Yanes WBC 0-2 Abnormal NONE SEEN [facility] Comment on above: Performed By: #### Riddhi DAWN UMICRO ####[facility] Jmwvrbwafw[address] [place], [place] [address]Dr. Villa Yanes WBC CELLULAR CAST RARE Normal [facility] Comment on above: Performed By: #### Riddhi DAWN UMICRO ####[facility] Nxqaxcompl10[address] [place], [place] [address]Dr. Villa Yanes XR SACRUM_COCCYXon XR SACRUM_COCCYX Normal [facility] BNPon 05-08-2022 Natriuretic peptide B (Bld) [Mass/Vol] 2957.0 pg/mL Critically high <=1,800.0 [facility] Comment on above: Performed By: #### T SH, BNP, CMADM, CMP, T7 ####[facility] Tuszfngaap6124 [place] [address]Dr. Villa Yanes CARDIAC ANAMARIA ADMITon 022 CK [Catalytic activity/Vol] 88 U/L Normal 39-308 [facility] Comment on above: Performed By: #### T SH, BNP, CMADM, CMP, T7 ####[facility] Ojuhleplby7795 [place] [address]Dr. Villa Yanes CK.MB [Mass/Vol] 2.75 ng/mL Normal <=3.60 [facility] Comment on above: Performed By: #### T SH, BNP, CMADM, CMP, T7 ####[facility] Dvhtgfldjj17[address] [place], [place] [address]Dr. Villa Yanes HSTROP 10.4 pg/mL Normal 4.0-76.1 [facility] Comment on above: Result Comment: CUT- OFF POINTS HAVE BEEN ESTABLISHED BASED ON THE FOURTH UNIVERSAL DEFINITIONS OF MYOCARDIALINFARCTION. THE UPPER REFERENCE LIMIT (URL) OF TROPONIN, DEFINED THE 99TH PERCENTILE OFcTnI DISTRIBUTION IN A REFERENCE POPULATION, HAS BEEN CONFIRMED THE DECISION THRESHOLDFOR PA DIAGNOSIS. Performed By: #### T SH, BNP, CMADM, CMP, T7 ####[facility] Dspwtsysay9052 [place] [address]Dr. Villa Yanes JULIA 109 ng/mL Critically high 16- [facility] Comment on above: Performed By: #### T SH, BNP, CMADM, CMP, T7 ####[facility] Pbnspropsl6550 [place] [address]Dr. Villa Yanes CBC AUTO DIFFon 05-08-2022 BASO # 0.0 103/ul Normal 0.0-0.1 [facility] Comment on above: Performed By: #### C BC ####[facility] Qvaidhtcwz67[address] [place], [place] [address]Dr. Villa Yanes Basophils/100 WBC (Bld) 0.2 % Normal 0.2-2.0 [facility] Comment on above: Performed By: #### C BC ####[facility] Bmufoyqlzx7949 [place] [id number] Villa Yanes EO # 0.0 103/ul Normal 0.0-0.7 [facility] Comment on above: Performed By: #### C BC ####[facility] Hexnfpewcf77[address] [place], [place] [address]DrBrenden Brooklynkaren Yanes Eosinophils/100 WBC (Bld) 0.0 % Critically low 0.9-7.0 [facility] Comment on above: Performed By: #### C BC ####[facility] Liouzvhcss9[address] [place], [place] [address]Dr. [place]karen Yanes Erythrocyte distribution width (RBC) [Ratio] 12.5 % Normal 11.0-15.0 [facility] Comment on above: Performed By: #### C BC ####[facility] Vnhbdeqhdg6[address] [place], [place] [address]Dr. Villa Yanes Hematocrit (Bld) [Volume fraction] 30.0 % Critically low 42.0-54.0 [facility] Comment on above: Performed By: #### C BC ####[facility] Sqwghiezrv6[address] [place], [place] [address]Dr. Villa Joaquín Hemoglobin (Bld) [Mass/Vol] 9.9 g/dL Critically low 14.0-18.0 [facility] Comment on above: Performed By: #### C BC ####[facility] Dxezfvsnig[address] [place], [place] [address]Dr. [place]karen Yanes IG # 0.13 10e3/ul Critically high 0.00-0.03 [facility] Comment on above: Performed By: #### C BC ####[facility] Udpvxdrwof[address] [place], [place] [address]DrBrenden Yanes IG % 0.9 % Critically high 0.0-0.5 [facility] Comment on above: Performed By: #### C BC ####[facility] Kolwwofeiu64[address] [place], [place] [address]DrBrenden Yanes LYMPH # 0.8 103/ul Critically low 1.2-3.8 [facility] Comment on above: Performed By: #### C BC ####[facility] Bfwgdztass0889 [place] [address]DrBrenden Yanes Lymphocytes/100 WBC (Bld) 5.7 % Critically low 20.5-60.0 [facility] Comment on above: Performed By: #### C BC ####[facility] Ypyzurqsha1754 [place] [address]DrBrenden Yanes MANUAL DIFF REQ NO Normal [facility] Comment on above: Performed By: #### C BC ####[facility] Ifbeullpks1269 [place] [id number] Yanes MCH (RBC) [Entitic mass] 32.1 pg Normal 25.9-34.0 [facility] Comment on above: Performed By: #### C BC ####[facility] Ohadkevuiy06[address] [place], [place] [address]DrBrenden Yanes MCHC (RBC) [Mass/Vol] 33.0 g/dL Normal 29.9-35.2 [facility] Comment on above: Performed By: #### C BC ####[facility] Mraqhtcrlx[address] [place], [place] [address]DrBrenden Yanes MCV (RBC) [Entitic vol] 97.4 fL Critically high 80.0-94.0 [facility] Comment on above: Performed By: #### C BC ####[facility] Laxrvlrtso[address] [place], [place] [address]DrBrenden Yanes MONO # 0.5 103/ul Normal 0.3-0.8 [facility] Comment on above: Performed By: #### C BC ####[facility] Wckjlrhcis12[address] [place], [place] [address]DrBrenden Yanes Monocytes/100 WBC (Bld) 3.4 % Normal 1.7-12.0 [facility] Comment on above: Performed By: #### C BC ####[facility] Uylpsecwna[address] [place], [place] [address]DrBrenden Yanes NEUT # 13.1 103/ul Critically high 1.4-6.5 [facility] Comment on above: Performed By: #### C BC ####[facility] Zxpleitfig8795 [place] [address]Dr. Villa Yanes Neutrophils/100 WBC (Bld) 89.8 % Critically high 43.0-75.0 [facility] Comment on above: Performed By: #### C BC ####[facility] Wnlhimmulw1329 [place] [address]Dr. Villa Yanes Platelet mean volume (Bld) [Entitic vol] 9.9 fL Normal 9.5-13.5 [facility] Comment on above: Performed By: #### C BC ####[facility] Gfarvkrjow0814 [place] [address]Dr. Villa Joaquín PLT 281 103/ul Normal 150-450 [facility] Comment on above: Performed By: #### C BC ####[facility] Sipidmjwpp6761 [place] [address]Dr. Villa Joaquín RBC 3.08 106/ul Critically low 4.70-6.10 [facility] Comment on above: Performed By: #### C BC ####[facility] Unclgqvdxq039[address] [place], [place] [address]Dr. Villa Joaquín WBC 14.6 103/ul Critically high 4.0-11.0 [facility] Comment on above: Performed By: #### C BC ####[facility] Tuwiwcikxe8425 [place] [id number]. Villa Joaquín FREE THYROXINE INDEX T7on FTI 1.87 Normal 1.30-4.50 [facility] Comment on above: Performed By: #### T SH, BNP, CMADM, CMP, T7 ####[facility] Zkvlbnmobj0844 [place] [id number]. Villa Yanes T3U 39.0 % Normal 33.0-40.0 [facility] Comment on above: Performed By: #### T SH, BNP, CMADM, CMP, T7 ####[facility] Umjnqlmrft2188 [place] [id number]. Villa Yanes T4 [Mass/Vol] 4.80 ug/dL Normal 4.50-12.10 [facility] Comment on above: Performed By: #### T SH, BNP, CMADM, CMP, T7 ####[facility] Iffgfecjju0256 [place] [address]Dr. Villa Yanes IRONon 05-08-2022 Iron [Mass/Vol] 96.0 ug/dL Normal 65.0-175.0 [facility] Comment on above: Performed By: #### I JOSE ####[facility] Nrwszeonmo3053 [place] [address]Dr. Villa Yanes PROF 14(COMP METB)on 022 Albumin [Mass/Vol] 2.8 g/dL Critically low 3.4-5.0 [facility] Comment on above: Performed By: #### T SH, BNP, CMADM, CMP, T7 ####[facility] Qobwswkovf4837 [place] [address]Dr. Villa Yanes Albumin/Globulin [Mass ratio] 0.7 {ratio} Normal [facility] Comment on above: Performed By: #### T SH, BNP, CMADM, CMP, T7 ####[facility] Sbzvclpgag3021 [place] [address]Dr. Villa Yanes ALP [Catalytic activity/Vol] 231 U/L Critically high 46-116 [facility] [facility] Comment on above: Performed By: #### T SH, BNP, CMADM, CMP, T7 ####[facility] E[address]lrctpp[address] [place] [address]Dr. Villa Yanes ALT [Catalytic activity/Vol] 13 U/L Critically low 16-63 [facility] Comment on above: Performed By: #### T SH, BNP, CMADM, CMP, T7 ####[facility] Fmstgmmndh[address] [place] [address]Dr. Villa Yanes Anion gap [Moles/Vol] 13.1 mmol/L Normal [facility] Comment on above: Performed By: #### T SH, BNP, CMADM, CMP, T7 ####[facility] Lujzqfwgjd[address] [place] [address]Dr. Villa Yanes AST [Catalytic activity/Vol] 14 U/L Critically low 15-37 [facility] Comment on above: Performed By: #### T SH, BNP, CMADM, CMP, T7 ####[facility] Ooljmlaeej[address] [place] [address]Dr. Villa Yanes Bilirubin [Mass/Vol] 0.2 mg/dL Normal 0.2-1.0 [facility] Comment on above: Performed By: #### T SH, BNP, CMADM, CMP, T7 ####[facility] Ryynzuniol[address] [place] [address]Dr. Villa Yanes Calcium [Mass/Vol] 8.7 mg/dL Normal 8.5-10.1 [facility] Comment on above: Performed By: #### T SH, BNP, CMADM, CMP, T7 ####[facility] Smvtvuelsr38[address] [place] [address]Dr. Villa Yanes Chloride [Moles/Vol] 107 mmol/L Normal 98-107 [facility] Comment on above: Performed By: #### T SH, BNP, CMADM, CMP, T7 ####[facility] Nvfmceaydp5775 [place] [address]Dr. Villa Yanes CO2 [Moles/Vol] 26.3 mmol/L Normal 21.0-32.0 [facility] Comment on above: Performed By: #### T SH, BNP, CMADM, CMP, T7 ####[facility] Swhurdplis[address] [place] [address]Dr. Villa Yanes Creatinine [Mass/Vol] 1.42 mg/dL Critically high 0.70-1.30 [facility] Comment on above: Performed By: #### T SH, BNP, CMADM, CMP, T7 ####[facility] Qvwksbxuoi1454 [place] [address]Dr. Villa Yanes EGFR-AF MARTINIQUAIS 58 mL/min/1.73m2 Critically low >=60 [facility] Comment on above: Performed By: #### T SH, BNP, CMADM, CMP, T7 ####[facility] Bcycefwjhf5[address] [place] [address]Dr. Villa Yanes EGFR-NON AF MARTINIQUAIS 48 mL/min/1.73m2 Critically low >=60 [facility] Comment on above: Performed By: #### T SH, BNP, CMADM, CMP, T7 ####[facility] Lotktrzqpg7[address] [place] [address]Dr. Villa Yanes Globulin (S) [Mass/Vol] 3.8 g/dL Normal [facility] Comment on above: Performed By: #### T SH, BNP, CMADM, CMP, T7 ####[facility] Wttocnnxds6[address] [place] [address]Dr. Villa Yanes Glucose [Mass/Vol] 144 mg/dL Critically high 74-106 [facility] Comment on above: Performed By: #### T SH, BNP, CMADM, CMP, T7 ####[facility] Gvwkzqmvcp09[address] [place] [address]Dr. Villa Yanes Potassium [Moles/Vol] 4.4 mmol/L Normal 3.5-5.1 [facility] Comment on above: Performed By: #### T SH, BNP, CMADM, CMP, T7 ####[facility] Kkxalcjckt26[address] [place] [address]Dr. Villa Yanes Protein [Mass/Vol] 6.6 g/dL Normal 6.4-8.2 [facility] Comment on above: Performed By: #### T SH, BNP, CMADM, CMP, T7 ####[facility] Qvaqqgxxje7976 [place] [address]Dr. Villa Yanes Sodium [Moles/Vol] 142 mmol/L Normal 136-145 [facility] Comment on above: Performed By: #### T SH, BNP, CMADM, CMP, T7 ####[facility] Mrocfspwub[address] [place] [address]Dr. Villa Yanes Urea nitrogen [Mass/Vol] 49.0 mg/dL Critically high 7.0-18.0 [facility] Comment on above: Performed By: #### T SH, BNP, CMADM, CMP, T7 ####[facility] Jpregaiabj0619 [place] [address]Dr. Villa Yanes Urea nitrogen/Creatinine [Mass ratio] 34.5 mg/mg Normal [facility] Comment on above: Performed By: #### T SH, BNP, CMADM, CMP, T7 ####[facility] Onqfhxyzmi5598 [place] [address]Dr. Villa Yanes TSHon 05-08-2022 TSH 0.099 uIU/mL Critically low 0.358-3.740 [facility] Comment on above: Performed By: #### T SH, BNP, CMADM, CMP, T7 ####[facility] Admfczhuzk6854 [place] [address]Dr. [place]karen Yanes XR SACRUM_COCCYXon 2 XR SACRUM_COCCYX Normal [facility] GLYCOHEMOGLOBIN A1Con 2021 ADA RECOMMENDATION SEE BELOW Normal [facility] Comment on above: Result Comment: ADA RECOMMENDED LIMIT 4.0 - 6.0 ADA THERAPEUTIC TARGET < 7.0 ACTION SUGGESTED > 7.0 Performed By: #### A 1C ####[facility] [address]ohgpaz[address]ze[address] [place], [place] [address]Dr. Villa Joaquín Glucose [Mass/Vol] 140 mg/dL Normal [facility] Comment on above: Performed By: #### A 1C ####[facility] Cfjxkmulav1179 [place] [address]Dr. Villa Joaquín HbA1c (Bld) [Mass fraction] 6.5 % Critically high 4.5-6.2 [facility] Comment on above: Performed By: #### A 1C ####[facility] Tgimshgzww9403 [place] [address]Dr. Villa Joaquín CBC AUTO DIFFon 04-03-2022 BASO # 0.1 103/ul Normal 0.0-0.1 [facility] Comment on above: Performed By: #### C BC ####[facility] Ckpxreayvg0997 [place] [address]Dr. Villa Joaquín Basophils/100 WBC (Bld) 0.4 % Normal 0.2-2.0 [facility] Comment on above: Performed By: #### C BC ####[facility] Uztylcqlmg[address] [place] [id number]. Villa Yanes EO # 0.3 103/ul Normal 0.0-0.7 [facility] Comment on above: Performed By: #### C BC ####[facility] Bpikvxnwcg1844 [place] [address]Dr. Villa Yanes Eosinophils/100 WBC (Bld) 2.4 % Normal 0.9-7.0 [facility] Comment on above: Performed By: #### C BC ####[facility] Xntdx[address] [place], [place] [address]Dr. Villa Yanes Erythrocyte distribution width (RBC) [Ratio] 12.3 % Normal 11.0-15.0 [facility] Comment on above: Performed By: #### C BC ####[facility] [address]tuxq[address] [place], [place] [address]Dr. Villa Yanes Hematocrit (Bld) [Volume fraction] 34.6 % Critically low 42.0-54.0 [facility] Comment on above: Performed By: #### C BC ####[facility] Eykghozqvm[address] [place], [place] [address]Dr. Villa Yanes Hemoglobin (Bld) [Mass/Vol] 11.4 g/dL Critically low 14.0-18.0 [facility] Comment on above: Performed By: #### C BC ####[facility] Vwxvnaojpv[address] [place], [place] [address]Dr. Villa Yanes IG # 0.07 10e3/ul Critically high 0.00-0.03 [facility] Comment on above: Performed By: #### C BC ####[facility] Lnrbbxkonm0737 [place] [address]Dr. Villa Yanes IG % 0.5 % Normal 0.0-0.5 [facility] Comment on above: Performed By: #### C BC ####[facility] [address]yglhgohxq[address] [place], [place] [address]Dr. Villa Yanes LYMPH # 1.9 103/ul Normal 1.2-3.8 [facility] Comment on above: Performed By: #### C BC ####[facility] Xxhowzdpfh79[address] [place] [id number]. Villa Yanes Lymphocytes/100 WBC (Bld) 14.4 % Critically low 20.5-60.0 [facility] Comment on above: Performed By: #### C BC ####[facility] Fsyfowadun6[address] [place] [id number]. Villa Yanes MANUAL DIFF REQ NO Normal [facility] Comment on above: Performed By: #### C BC ####[facility] Ranhyxsfze4760 [place] [address]Dr. Villa Yanes MCH (RBC) [Entitic mass] 31.4 pg Normal 25.9-34.0 [facility] Comment on above: Performed By: #### C BC ####[facility] Htxyhxrnwh3520 [place] [address]Dr. Villa Yanes MCHC (RBC) [Mass/Vol] 32.9 g/dL Normal 29.9-35.2 [facility] Comment on above: Performed By: #### C BC ####[facility] Uepptkomps7076 [place] [address]Dr. Villa Yanes MCV (RBC) [Entitic vol] 95.3 fL Critically high 80.0-94.0 [facility] Comment on above: Performed By: #### C BC ####[facility] Qocpuholgp8326 [place] [address]Dr. Villa Joaquín MONO # 0.8 103/ul Normal 0.3-0.8 [facility] Comment on above: Performed By: #### C BC ####[facility] Urefcgxitc7940 [place] [address]Dr. Villa Joaquín Monocytes/100 WBC (Bld) 5.8 % Normal 1.7-12.0 [facility] Comment on above: Performed By: #### C BC ####[facility] [address]mmfrzjlok[address] [place], [place] [address]Dr. Villa Yanes NEUT # 10.3 103/ul Critically high 1.4-6.5 [facility] Comment on above: Performed By: #### C BC ####[facility] Rubirpikvl034[address] [place] [id number]. Villa Yanes Neutrophils/100 WBC (Bld) 76.5 % Critically high 43.0-75.0 [facility] Comment on above: Performed By: #### C BC ####[facility] Vbnpkvtffl9128 [place] [id number]. Villa Yaens Platelet mean volume (Bld) [Entitic vol] 9.6 fL Normal 9.5-13.5 [facility] Comment on above: Performed By: #### C BC ####[facility] Zcbbsumuah0037 [place] [address]Dr. Villa Yanes PLT 283 103/ul Normal 150-450 [facility] Comment on above: Performed By: #### C BC ####[facility] Rnaokqsken3989 [place] [address]Dr. Villa Yanes RBC 3.63 106/ul Critically low 4.70-6.10 [facility] Comment on above: Performed By: #### C BC ####[facility] Aqpesjzdcf2307 [place] [id number]. Villa Yanes WBC 13.4 103/ul Critically high 4.0-11.0 [facility] Comment on above: Performed By: #### C BC ####[facility] Iuczagbtxo3484 [place] [id number]. [place] Yanes CT ABD/PELV W CONon 04-03-[address] ABD/PELV W CON Normal [facility] ER URINE PROFILEon 2 Bilirubin Ql (U) Negative Normal NEGATIVE [facility] Comment on above: Performed By: #### U MICRO, ERUR ####[facility] Vwbqswoqln[address] [place], [place] [address]Dr. Villa Yanes Clarity (U) CLEAR Normal CLEAR [facility] Comment on above: Performed By: #### U MICRO, ERUR ####[facility] Ysrsltizxn4938 [place] [id number]. Villa Yanes Color (U) YELLOW Normal YELLOW [facility] Comment on above: Performed By: #### U MICRO, ERUR ####[facility] Kchdbrcnfb9263 [place] [address]Dr. Villa DILLARDD A micrscopic examina tion will be performed if indicated. Normal [facility] Comment on above: Performed By: #### U MICRO, ERUR ####[facility] Dtsakdzgze2041 [place] [address]Dr. Villa Yanes Glucose Ql (U) Negative Normal NEGATIVE [facility] Comment on above: Performed By: #### U MICRO, ERUR ####[facility] Giqsxybnqj[address] [place], [place] [address]Dr. Villa Yanes Hemoglobin Ql (U) Negative Normal NEGATIVE [facility] Comment on above: Performed By: #### U MICRO, ERUR ####[facility] Ikuunueqsr20[address] [place], [place] [address]Dr. Villa Yanes Ketones Ql (U) Negative Normal NEGATIVE [facility] Comment on above: Performed By: #### U MICRO, ERUR ####[facility] Xqpuggkqum7[address] [place], [place] [address]Dr. Villa Yanes LEUKOCYTES TRACE Abnormal NEGATIVE [facility] Comment on above: Performed By: #### U MICRO, ERUR ####[facility] [address]zfcwzgbok[address] [place], [place] [address]Dr. Villa Yanes Nitrite Ql (U) Negative Normal NEGATIVE [facility] Comment on above: Performed By: #### U MICRO, ERUR ####[facility] Chcvrxwnbe33[address] [place], [place] [address]Dr. Villa Yanes pH (U) 6.0 [pH] Normal 5-9 [facility] Comment on above: Performed By: #### U MICRO, ERUR ####[facility] Geanpclgxx[address] [place], [place] [address]Dr. Villa Yanes Protein (U) [Mass/Vol] 100 mg/dL Abnormal NEGATIVE/ TRACE [facility] Comment on above: Performed By: #### U MICRO, ERUR ####[facility] Irsfhnhehw[address] [place], [place] [address]Dr. Villa Yanes SPEC GRAVITY 1.020 Normal 1.005-<=1.0 25 [facility] Comment on above: Performed By: #### U MICRO, ERUR ####[facility] Tjippkeisp4[address] [place] [address]Dr. Villa Yanes UR MICRO IND INDICATED Normal [facility] Comment on above: Performed By: #### U MICRO, ERUR ####[facility] Vvybtpyzaj8055 [place] [address]Dr. Villa Yanes Urobilinogen Qn (U) 0.2 {Mackenzie'U}/dL Normal 0.2 - 1. 0 [facility] Comment on above: Performed By: #### U MICRO, ERUR ####[facility] [address]kdlozyitv[address] [place], [place] [address]Dr. Villa Yanes LIPASEon 04-03-2022 Lipase [Catalytic activity/Vol] 35.0 U/L Critically low 73.0-393.0 [facility] Comment on above: Performed By: #### L IPA, HSTROPN, CMP ####[facility] Duazsbuxzh[address] [place], [place] [address]Dr. Villa Yanes PROF 14(COMP METB)on 022 Albumin [Mass/Vol] 3.2 g/dL Critically low 3.4-5.0 [facility] Comment on above: Performed By: #### L IPA, HSTROPN, CMP ####[facility] Hueijawwnt5233 [place] [address]Dr. Villa Yanes Albumin/Globulin [Mass ratio] 0.8 {ratio} Normal [facility] Comment on above: Performed By: #### L IPA, HSTROPN, CMP ####[facility] Exswkfliqj5414 [place] [address]Dr. Villa Yanes ALP [Catalytic activity/Vol] 131 U/L Critically high 46-116 [facility] Comment on above: Performed By: #### L IPA, HSTROPN, CMP ####[facility] Flizdkfqyg4558 [place] [address]Dr. Villa Yanes ALT [Catalytic activity/Vol] U/L Critically low 16-63 [facility] Comment on above: Performed By: #### L IPA, HSTROPN, CMP ####[facility] Qslrolisqe0843 [place] [address]Dr. Villa Yanes Anion gap [Moles/Vol] 7.7 mmol/L Normal [facility] Comment on above: Performed By: #### L IPA, HSTROPN, CMP ####[facility] Tvygtubros3561 [place] [address]Dr. Villa Yanes AST [Catalytic activity/Vol] 6 U/L Critically low 15-37 [facility] Comment on above: Performed By: #### L IPA HSTROPN, CMP ####[facility] [address]fqrmofmfz[address] [place], [place] [address]Dr. Villa Yanes Bilirubin [Mass/Vol] 0.2 mg/dL Normal 0.2-1.0 [facility] Comment on above: Performed By: #### L IPA HSTROPN, CMP ####[facility] Eauigndbna[address] [place], [place] [address]Dr. Villa Yanes Calcium [Mass/Vol] 9.1 mg/dL Normal 8.5-10.1 [facility] Comment on above: Performed By: #### L IPA HSTROPN, CMP ####[facility] Colsjshtgg[address] [place], [place] [address]Dr. Villa Yanes Chloride [Moles/Vol] 104 mmol/L Normal 98-107 [facility] Comment on above: Performed By: #### L IPA HSTROPN, CMP ####[facility] Ubdwbvjmtv[address] [place], [place] [address]Dr. Villa Yanes CO2 [Moles/Vol] 29.7 mmol/L Normal 21.0-32.0 [facility] Comment on above: Performed By: #### L IPA, HSTROPN, CMP ####[facility] Eziklfmviw[address] [place], [place] [address]Dr. Villa Yanes Creatinine [Mass/Vol] 1.35 mg/dL Critically high 0.70-1.30 [facility] Comment on above: Performed By: #### L IPA, HSTROPN, CMP ####[facility] Aojysxlnqq3[address] [place] [address]Dr. Villa Yanes EGFR-AF MARTINIQUAIS >60 Normal >=60 [facility] Comment on above: Performed By: #### L IPA, HSTROPN, CMP ####[facility] Ujxzdemyux0165 [place] [address]Dr. Villa Yanes EGFR-NON AF MARTINIQUAIS 51 mL/min/1.73m2 Critically low >=60 [facility] Comment on above: Performed By: #### L IPA, HSTROPN, CMP ####[facility] Fmrimdajfn0398 [place] [address]Dr. Villa Yanes Globulin (S) [Mass/Vol] 4.2 g/dL Normal [facility] Comment on above: Performed By: #### L IPA, HSTROPN, CMP ####[facility] Bvrxiccelu[address] [place], [place] [address]Dr. Villa Yanes Glucose [Mass/Vol] 116 mg/dL Critically high 74-106 [facility] Comment on above: Performed By: #### L IPA, HSTROPN, CMP ####[facility] Ecuyafiswe[address] [place], [place] [address]Dr. Villa Yanes Potassium [Moles/Vol] 3.4 mmol/L Critically low 3.5-5.1 [facility] Comment on above: Performed By: #### L IPA, HSTROPN, CMP ####[facility] [address]xzlaaxqgp[address] [place], [place] [address]Dr. Villa Yanes Protein [Mass/Vol] 7.4 g/dL Normal 6.4-8.2 [facility] Comment on above: Performed By: #### L IPA, HSTROPN, CMP ####[facility] [address]qcqqmsjvt[address] [place], [place] [address]Dr. Villa Yanes Sodium [Moles/Vol] 138 mmol/L Normal 136-145 [facility] Comment on above: Performed By: #### L IPA, HSTROPN, CMP ####[facility] [address] [place], [place] [address]Dr. Villa Yanes Urea nitrogen [Mass/Vol] 35.0 mg/dL Critically high 7.0-18.0 [facility] Comment on above: Performed By: #### L IPA, HSTROPN, CMP ####[facility] Jndjvjwhhl7647 [place] [address]Dr. Villa Yanes Urea nitrogen/Creatinine [Mass ratio] 25.9 mg/mg Normal [facility] Comment on above: Performed By: #### L IPA, HSTROPN, CMP ####[facility] Etyobzxxtp110[address] [place] [address]Dr. Villa Yanes TROPONIN, HIGH SENSITIVITYon 04-03-2022 HSTROP 10.3 pg/mL Normal 4.0-76.1 [facility] Comment on above: Result Comment: CUT- OFF POINTS HAVE BEEN ESTABLISHED BASED ON THE FOURTH UNIVERSAL DEFINITIONS OF MYOCARDIALINFARCTION. THE UPPER REFERENCE LIMIT (URL) OF TROPONIN, DEFINED THE 99TH PERCENTILE OFcTnI DISTRIBUTION IN A REFERENCE POPULATION, HAS BEEN CONFIRMED THE DECISION THRESHOLDFOR PA DIAGNOSIS. Performed By: #### L IPA, HSTROPN, CMP ####[facility] Mjccbialxo2137 [place] [address]Dr. Villa Yanes URINE MICROSCOPIC ONLYon BACTERIA NONE SEEN Normal NONE SEEN [facility] Comment on above: Performed By: #### U MICRO, ERUR ####[facility] Ajfcbdxnhf[address] [place], [place] [address]Dr. [place]karen Yanes Bacteria identified Cx Nom (U) NOT INDICATED Normal [facility] Comment on above: Performed By: #### U MICRO, ERUR ####[facility] [address]cpqkjasse[address] [place] [address]Dr. Villa Yanes CAST SEEN Abnormal NONE SEEN [facility] Comment on above: Performed By: #### U MICRO, ERUR ####[facility] Pwbbnckmti18[address] [place] [address]Dr. Villa Yanes Crystals LM Nom (Urine sed) NONE SEEN Normal NONE SEEN [facility] Comment on above: Performed By: #### U MICRO, ERUR ####[facility] Igijtatonc[address] [place], [place] [address]Tq. Villa Yanes Epithelial cells LM Ql (Urine sed) NONE SEEN Normal NONE SEEN /RARE [facility] Comment on above: Performed By: #### U MICRO, ERUR ####[facility] [address]zcohsoohv69[address] [place], [place] [address]Hn. Villa Yanes MUCOUS NONE SEEN Normal NONE SEEN [facility] Comment on above: Performed By: #### U MICRO, ERUR ####[facility] Ibkmwqaksf6671 [place], [place] [address]Dl. Villa Yanes RBC NONE SEEN Abnormal 0-2 [facility] Comment on above: Performed By: #### U MICRO, ERUR ####[facility] Cf[address]awrfnn5683 [place], [place] [address]Ci. Villa Yanes WBC 0-2 Abnormal NONE SEEN [facility] Comment on above: Performed By: #### U MICRO, ERUR ####[facility] [address]rapg[address] [place] [id number]. 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) Ischemic cardiomyopathy (414.8) (I25.5) Paroxysmal atrial fibrillation (427.31) (I48.0) Body mass index (BMI) of 19.9 or less in adult (Z68.1) Cardiac arrest (427.5) (I46.9) PVD (peripheral vascular disease) (443.9) (I73.9) CHF (NYHA class II, ACC/AHA stage C) (428.0) (I50.9) Current smoker (305.1) (F17.200) 1 ppd Orders 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 You may also call [id number]; Status:Complete - Retrospective Authorization; Done: 12Mar2022 Tobacco [...] has had previous high risk non-ST elevation PA earlier this year July 2021, with subsequent revascularization of the RCA with drug-eluting stent and normalization of his LV function originally from 30 now up to 60% as measured by echo at [facility]. He has underlying peripheral vascular disease, ongoing tobacco use, COPD, history of throat cancer with PEG tube. He underwent recent hospitalization at [facility] with significant weight loss and debility and revision of his PEG tube and now clinically improved putting and weight back on. He was diagnosed with paroxysmal atrial fibrillation at the clinic and therefore initiated on Eliquis therapy. 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 Normal [employer] Tobacco Screening.on 022 Fall risk assessment a) No falls within the last year [facility] [employer] 11 DO Work Phone: Tobacco use status CP a) Yes [facility] 11 DO Work Phone: Tobacco Screening. 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 Yes [facility] marika 250 DO Work Phone: Basic metabolic 2000 panelon 02-03-2022 Anion gap [Moles/Vol] 12 mmol/L Normal 9-18 [facility] Comment on above: Order Comment: Speci men Type: BLOOD SPECIMENOrdering Facility: [facility] Address: [address] [place] [phone] Performed By: #### 1 9123-9, 2777-1, 37072-3 ####[facility] LABCLIA [id number] [place] [id number] [place] Calcium [Mass/Vol] 10.1 mg/dL Normal 8.5-10.2 [facility] Comment on above: Order Comment: Speci men Type: BLOOD SPECIMENOrdering Facility: [facility] Address: [address] [place] [phone] Performed By: #### 1 9123-9, 2777-1, 56599-5 ####[facility] LABCLIA [id number] [address] [address] [place] Chloride [Moles/Vol] 100 mmol/L Normal 97-105 [facility] Comment on above: Order Comment: Speci men Type: BLOOD SPECIMENOrdering Facility: [facility] Address: [address] [place], [place] [phone] Performed By: #### 1 9123-9, 27711-21, 82459-7 ####[facility] LABCLIA [id number] [place] [address] [place] CO2 [Moles/Vol] 24 mmol/L Normal 22-30 [facility] Comment on above: Order Comment: Speci men Type: BLOOD SPECIMENOrdering Facility: [facility] Address: [address] [place] [address] Performed By: #### 1 9123-9, 27711-21, 60184-5 ####[facility] LABCLIA [id number] [place] [address] [place] Creatinine [Mass/Vol] 1.14 mg/dL Normal 0.73-1.22 [facility] Comment on above: Order Comment: Speci men Type: BLOOD SPECIMENOrdering Facility: [facility] Address: [address] [place] [address] Performed By: #### 1 9123-9, 27711-21, 57480-6 ####[facility] LABIA [id number] [place] [address] [place] ESTIMATED GLOMERULAR FILTRATION RATE 65 mL/min/1.73m??? Normal >=60 [facility] Comment on above: Order Comment: Speci men Type: BLOOD SPECIMENOrdering Facility: [facility] Address: [address] [place], [place] [phone] Result Comment: Sandra mated Glomerular Filtration Rate [...] GFR. Performed By: #### 1 9123-9, 2777-, 71624-6 ####[facility] LABCLIA [id number] [address] [address] [place] Glucose [Mass/Vol] 209 mg/dL High 74-99 [facility] Comment on above: Order Comment: Speci men Type: BLOOD SPECIMENOrdering Facility: [facility] Address: [address] [place] [phone] Result Comment: The [place] Diabetes Association (ADA) provides guidance for cutoff [...] Standards of Medical Care in Diabetes 2016, [place] [employer]. Diabetes Care. 2016.39(Suppl 1). Performed By: #### 1 9123-9, 2777-, 85175-3 ####[facility] LABIA [id number] [place] [address] [place] Potassium [Moles/Vol] 4.8 mmol/L Normal 3.7-5.1 [facility] Comment on above: Order Comment: Speci men Type: BLOOD SPECIMENOrdering Facility: [facility] Address: [address] [place] [address] Performed By: #### 1 9123-9, 2777-, 65602-0 ####[facility] LABIA [id number] [address] [address] [place] Sodium [Moles/Vol] 136 mmol/L Normal 136-144 [facility] Comment on above: Order Comment: Speci men Type: BLOOD SPECIMENOrdering Facility: [facility] Address: [address] [place], [place] [phone] Performed By: #### 1 9123-9, 2777-1, 38149-0 ####[facility] LABCLIA [id number] [place] [address] [place] Urea nitrogen [Mass/Vol] 32 mg/dL High 9-24 [facility] Comment on above: Order Comment: Speci men Type: BLOOD SPECIMENOrdering Facility: [facility] Address: [address] [place], [place] [phone] Performed By: #### 1 9123-9, 2777-1, 70152-1 ####[facility] LABCLIA [id number] [place] [address] [place] CASE MANAGEMon 02-03-2022 CASE MANAGEM Normal [facility] CBC W Auto Differential pane l (Bld)on 02-03-2022 Basophils (Bld) [#/Vol] 10*3/uL Normal <0.11 [facility] Comment on above: Order Comment: Speci men Type: BLOOD SPECIMENOrdering Facility: [facility] Address: [address] [place], [place] [phone] Performed By: #### 5 7021-8 ####[facility] LABCLIA [id number] [place] [address] [place] Basophils/100 WBC (Bld) 0.1 % Normal [facility] Comment on above: Order Comment: Speci men Type: BLOOD SPECIMENOrdering Facility: [facility] Address: [address] [place], [place] [phone] Performed By: #### 5 7021-8 ####[facility] LABCLIA [id number] [place] [address] [place] Differential cell count method Nom (Bld) Auto Normal [facility] Comment on above: Order Comment: Speci men Type: BLOOD SPECIMENOrdering Facility: [facility] Address: [address] [place] [address] Performed By: #### 5 7021-8 ####[facility] LABCLIA [id number] [place] [address] [place] Eosinophils (Bld) [#/Vol] 10*3/uL Normal <0.46 [facility] Comment on above: Order Comment: Speci men Type: BLOOD SPECIMENOrdering Facility: [facility] Address: [address] [place], [place] [phone] Performed By: #### 5 7021-8 ####[facility] LABCLIA [id number] [place] [address] [place] Eosinophils/100 WBC (Bld) 0.0 % Normal [facility] Comment on above: Order Comment: Speci men Type: BLOOD SPECIMENOrdering Facility: [facility] Address: [address] [place], [place] [phone] Performed By: #### 5 7021-8 ####[facility] LABCLIA [id number] [place] [address] [place] Erythrocyte distribution width (RBC) [Ratio] 13.2 % Normal 11.5-15.0 [facility] Comment on above: Order Comment: Speci men Type: BLOOD SPECIMENOrdering Facility: [facility] Address: [address] [address] Performed By: #### 5 7021-8 ####[facility] LABCLIA [id number] [place] [address] [place] Hematocrit (Bld) [Volume fraction] 34.6 % Low 39.0-51.0 [facility] Comment on above: Order Comment: Speci men Type: BLOOD SPECIMENOrdering Facility: [facility] Address: [address] [place], [place] [phone] Performed By: #### 5 7021-8 ####[facility] LABCLIA [id number] [place] Hemoglobin (Bld) [Mass/Vol] 11.6 g/dL Low 13.0-17.0 [facility] Comment on above: Order Comment: Speci men Type: BLOOD SPECIMENOrdering Facility: [facility] Address: [address] [place] [address] Performed By: #### 5 7021-8 ####[facility] LABCLIA [id number] [address] OF [facility] % 1.0 % Normal [facility] Comment on above: Order Comment: Speci men Type: BLOOD SPECIMENOrdering Facility: [facility] Address: [address] [place] [address] Performed By: #### 5 7021-8 ####[facility] LABCLIA [id number] [address] STATES OF [facility] [employer] [facility] ABS 0.15 k/uL High <0.10 [facility] Comment on above: Order Comment: Speci men Type: BLOOD SPECIMENOrdering Facility: [facility] Address: [address] [place], [place] [phone] Performed By: #### 5 7021-8 ####[facility] LABIA [id number] [place] [address] [place] Lymphocytes (Bld) [#/Vol] 0.79 10*3/uL Low 1.00-4.00 [facility] Comment on above: Order Comment: Speci men Type: BLOOD SPECIMENOrdering Facility: [facility] Address: [address] [place], [place] [phone] Performed By: #### 5 7021-8 ####[facility] LABCLIA [id number] [address] [place] Lymphocytes/100 WBC (Bld) 5.2 % Normal [facility] Comment on above: Order Comment: Speci men Type: BLOOD SPECIMENOrdering Facility: [facility] Address: [address] [place], [place] [phone] Performed By: #### 5 7021-8 ####[facility] [id number] [address] MCH (RBC) [Entitic mass] 32.0 pg Normal 26.0-34.0 [facility] Comment on above: Order Comment: Speci men Type: BLOOD SPECIMENOrdering Facility: [facility] Address: [address] [place], [place] [phone] Performed By: #### 5 7021-8 ####[facility] [id number] [address] [place] MCHC (RBC) [Mass/Vol] 33.5 g/dL Normal 30.5-36.0 [facility] Comment on above: Order Comment: Speci men Type: BLOOD SPECIMENOrdering Facility: [facility] Address: [address] [place], [place] [phone] Performed By: #### 5 7021-8 ####[facility] [id number] [address] [place] MCV (RBC) [Entitic vol] 95.6 fL Normal 80.0-100.0 [facility] Comment on above: Order Comment: Speci men Type: BLOOD SPECIMENOrdering Facility: [facility] Address: [address] [place], [place] [address] Performed By: #### 5 7021-8 ####[facility] [id number] [place] [address] [place] Monocytes (Bld) [#/Vol] 0.10 10*3/uL Normal <0.87 [facility] Comment on above: Order Comment: Speci men Type: BLOOD SPECIMENOrdering Facility: [facility] Address: [address] [place], [place] [address] Performed By: #### 5 7021-8 ####[facility] LABCLIA [id number] [address] [address] [place] Monocytes/100 WBC (Bld) 0.7 % Normal [facility] Comment on above: Order Comment: Speci men Type: BLOOD SPECIMENOrdering Facility: [facility] Address: [address] [place], [place] [address] Performed By: #### 5 7021-8 ####[facility] LABCLIA [id number] [place] [address] [place] Neutrophils (Bld) [#/Vol] 14.02 10*3/uL High 1.45-7.50 [facility] Comment on above: Order Comment: Speci men Type: BLOOD SPECIMENOrdering Facility: [facility] Address: [address] [place] [address] Performed By: #### 5 7021-8 ####[facility] LABCLIA [id number] [place] [address] [place] Neutrophils/100 WBC (Bld) 93.0 % Normal [facility] Comment on above: Order Comment: Speci men Type: BLOOD SPECIMENOrdering Facility: [facility] Address: [address] [address] Performed By: #### 5 7021-8 ####[facility] LABCLIA [id number] [place] [address] [place] Nucleated RBC (Bld) [#/Vol] 10*3/uL Normal <0.01 [facility] Comment on above: Order Comment: Speci men Type: BLOOD SPECIMENOrdering Facility: [facility] Address: [address] [address] Performed By: #### 5 7021-8 ####[facility] LABCLIA [id number] [place] [address] [place] Nucleated RBC/100 WBC (Bld) [Ratio] 0.0 /100 WBC Normal [facility] Comment on above: Order Comment: Speci men Type: BLOOD SPECIMENOrdering Facility: [facility] Address: [address] [place], [place] [address] Performed By: #### 5 7021-8 ####[facility] LABCLIA [id number] [place] [address] [place] Platelet mean volume (Bld) [Entitic vol] 10.3 fL Normal 9.0-12.7 [facility] Comment on above: Order Comment: Speci men Type: BLOOD SPECIMENOrdering Facility: [facility] Address: [address] [place], [place] [address] Performed By: #### 5 7021-8 ####[facility] LABCLIA [id number] [place] [address] [place] Platelets (Bld) [#/Vol] 351 10*3/uL Normal 150-400 [facility] Comment on above: Order Comment: Speci men Type: BLOOD SPECIMENOrdering Facility: [facility] Address: [address] [place], [place] [address] Performed By: #### 5 7021-8 ####[facility] LABCLIA [id number] [place] [address] [place] RBC (Bld) [#/Vol] 3.62 10*6/uL Low 4.20-6.00 [facility] Comment on above: Order Comment: Speci men Type: BLOOD SPECIMENOrdering Facility: [facility] Address: [address] [place], [place] [address] Performed By: #### 5 7021-8 ####[facility] LABCLIA [id number] [place] [address] [place] WBC (Bld) [#/Vol] 15.08 10*3/uL High 3.70-11.00 [facility] Comment on above: Order Comment: Speci men Type: BLOOD SPECIMENOrdering Facility: [facility] Address: [address] [place] [address] Performed By: #### 5 7021-8 ####[facility] LABIA [id number] [place] [address] [place] Magnesium SerPl-mCncon 02-03 Magnesium [Mass/Vol] 2.1 mg/dL Normal 1.7-2.3 [facility] Comment on above: Order Comment: Speci men Type: BLOOD SPECIMENOrdering Facility: [facility] Address: [address] [place], [place] [phone] Performed By: #### 1 9123-9, 2777-1, 21634-3 ####[facility] LABIA [id number] [place] [address] [place] NURSING PROGon 02-03-2022 NURSING PROG Normal [facility] NUTRITIONon 02-03-2022 NUTRITION Normal [facility] PT EDon 02-03-2022 PT ED Normal [facility] Phosphate SerPl-mCncon 02-03 Phosphate [Mass/Vol] 3.2 mg/dL Normal 2.7-4.8 [facility] Comment on above: Order Comment: Speci men Type: BLOOD SPECIMENOrdering Facility: [facility] Address: [address] [place] [phone] Performed By: #### 1 9123-9, 2777-1, 57684-6 ####[facility] LABIA [id number] [place] [id number] [place] THERAPY NTon 02-03-2022 THERAPY NT Normal [facility] THERAPY NT Normal [facility] ANES POSTPROC EVALon 022 ANES POSTPROC EVAL Normal [facility] ANES PRE-OPon 02-02-2022 ANES PRE-OP Normal [facility] BRIEF OP NOTon 02-02-2022 BRIEF OP NOT Normal [facility] CNPNon 02-02-2022 CNPN Normal [facility] OPERATIVE NOon 02-02-2022 OPERATIVE NO Normal [facility] CNPNon 01-27-2022 CNPN Normal [facility] HISTORY PHYSICALon 2 HISTORY PHYSICAL Normal [facility] NURSING PROGon 01-24-2022 NURSING PROG Normal [facility] XR ABDOMEN 1V SUPINEon 01-24 XR ABDOMEN 1V SUPINE [facility] XR ABDOMEN 1V SUPINE Normal [facility] CNOVon 2022 CNOV Normal [facility] Tobacco Screening.on 022 Fall risk assessment b) One or more fall s in the last year -[facility]ika 250 DO Work Phone: Tobacco use status CP a) Yes [facility] [employer]ika 250 DO Work Phone: Tobacco Screening. Yes [facility] [employer]ika 250 DO Work Phone: CNOVon 12-31-2021 CNOV Normal [facility] CNOV Normal [facility] HISTORY PHYSICALon 2 HISTORY PHYSICAL Normal [facility] CULTURE URINEon 12-21-2021 CULTURE URINE Normal [facility] Comment on above: Performed By: #### U RCX ####[facility] [address] [place] [address]Dr. Villa Yanes UA RANDOM W/MICROSCOPICon BACTERIA LARGE Abnormal NONE SEEN [facility] Comment on above: Performed By: #### U AMIC ####[facility] [address] [place] [id number]. Villa Yanes Bilirubin Ql (U) Negative Normal NEGATIVE [facility] Comment on above: Performed By: #### U AMIC ####[facility] [address] [place] [id number]. Villa Yanes CAST NONE SEEN Normal NONE SEEN [facility] Comment on above: Performed By: #### U AMIC ####[facility] [address] [place] [address]Dr. Villa Yanes Clarity (U) CLEAR Normal CLEAR [facility] Comment on above: Performed By: #### U AMIC ####[facility] [address] [place], [place] [address]Dr. Villa Yanes Color (U) LT. YELLOW Normal YELLOW [facility] Comment on above: Performed By: #### U AMIC ####[facility] [address] [place], [place] [address]Dr. Villa Yanes Crystals LM Nom (Urine sed) NONE SEEN Normal NONE SEEN [facility] Comment on above: Performed By: #### U AMIC ####[facility] X[address] [place], [place] [address]Dr. Villa Yanes Epithelial cells LM Ql (Urine sed) FEW Abnormal NONE SEEN /RARE [facility] Comment on above: Performed By: #### U AMIC ####[facility] T[address] [place], [place] [address]Dr. Villa Yanes Glucose Ql (U) Negative Normal NEGATIVE [facility] Comment on above: Performed By: #### U AMIC ####[facility] Ol[address]wkv[address] [place], [place] [address]Dr. Villa Yanes Hemoglobin Ql (U) Negative Normal NEGATIVE [facility] Comment on above: Performed By: #### U AMIC ####[facility] Gesx[address]zrz[address] [place], [place] [address]Dr. Villa Yanes Ketones Ql (U) Negative Normal NEGATIVE [facility] Comment on above: Performed By: #### U AMIC ####[facility] Tw[address]aiwlz[address] [place], [place] [address]Dr. Villa Yanes LEUKOCYTES LARGE Abnormal NEGATIVE [facility] Comment on above: Performed By: #### U AMIC ####[facility] Ooqiptoupl[address] [place], [place] [address]Dr. Villa Yanes MUCOUS NONE SEEN Normal NONE SEEN [facility] Comment on above: Performed By: #### U AMIC ####[facility] [address]fr[address]qxp[address] [place], [place] [address]Dr. Villa Yanes Nitrite Ql (U) Negative Normal NEGATIVE [facility] Comment on above: Performed By: #### U AMIC ####[facility] [address] [place] [address]Dr. Villa Yanes pH (U) 7.5 [pH] Normal 5-9 [facility] Comment on above: Performed By: #### U AMIC ####[facility] [address] [place] [phone]. Villa Yanes RBC NONE SEEN Abnormal 0-2 [facility] Comment on above: Performed By: #### U AMIC ####[facility] [address] [place] [address]Dr. Villa Yanes SPEC GRAVITY 1.015 Normal 1.005-<=1.0 25 [facility] Comment on above: Performed By: #### U AMIC ####[facility] O[address] [place], [place] [address]Dr. Villa Yanes UA PROTEIN 100 mg/dl Abnormal NEGATIVE/ TRACE [facility] Comment on above: Performed By: #### U AMIC ####[facility] Gi[address]qy[address] [place], [place] [address]Dr. Villa Yanes Urobilinogen Qn (U) 0.2 {Mackenzie'U}/dL Normal 0.2 - 1. 0 [facility] Comment on above: Performed By: #### U AMIC ####[facility] [address] [place], [place] [address]Dr. Villa Yanes WBC 50-75 Abnormal NONE SEEN [facility] Comment on above: Performed By: #### U AMIC ####[facility] Uq[address] [place], [place] [address]Dr. Villa Joaquín CBC AUTO DIFFon 12-18-2021 BASO # 0.1 103/ul Normal 0.0-0.1 [facility] Comment on above: Performed By: #### C BC ####[facility] Is[address] [place], [place] [address]Dr. Villa Yanes Basophils/100 WBC (Bld) 0.7 % Normal 0.2-2.0 [facility] Comment on above: Performed By: #### C BC ####[facility] [address] [place] [phone]. Villa Yanes EO # 0.6 103/ul Normal 0.0-0.7 [facility] Comment on above: Performed By: #### C BC ####[facility] [address] [place] [phone]. Villa Yanes Eosinophils/100 WBC (Bld) 4.0 % Normal 0.9-7.0 [facility] Comment on above: Performed By: #### C BC ####[facility] [address] [place], [place] [address]Dr. Villa Yanes Erythrocyte distribution width (RBC) [Ratio] 13.9 % Normal 11.0-15.0 [facility] Comment on above: Performed By: #### C BC ####[facility] [address] [place], [place] [address]Dr. Villa Yanes Hematocrit (Bld) [Volume fraction] 33.4 % Critically low 42.0-54.0 [facility] Comment on above: Performed By: #### C BC ####[facility] Rhcjczrnxk[address] [place], [place] [address]Dr. Villa Yanes Hemoglobin (Bld) [Mass/Vol] 11.1 g/dL Critically low 14.0-18.0 [facility] Comment on above: Performed By: #### C BC ####[facility] Jsjec[address]ece[address] [place], [place] [address]Dr. Villa Yanes IG # 0.15 10e3/ul Critically high 0.00-0.03 [facility] Comment on above: Performed By: #### C BC ####[facility] Slmzwqsuxa[address] [place], [place] [address]Dr. Villa Yanes IG % 1.0 % Critically high 0.0-0.5 [facility] Comment on above: Performed By: #### C BC ####[facility] Aunwy[address]fu[address] [place], [place] [address]Dr. Villa Yanes LYMPH # 1.9 103/ul Normal 1.2-3.8 [facility] Comment on above: Performed By: #### C BC ####[facility] [address]deslw60[address] [place] [id number]. Villa Joaquín Lymphocytes/100 WBC (Bld) 12.2 % Critically low 20.5-60.0 [facility] Comment on above: Performed By: #### C BC ####[facility] Zxxjlfvgck8995 [place] [id number]. Villa Yanes MANUAL DIFF REQ NO Normal [facility] Comment on above: Performed By: #### C BC ####[facility] Dntxansxan2323 [place] [phone]. Brooklynkaren Yanes MCH (RBC) [Entitic mass] 31.3 pg Normal 25.9-34.0 [facility] Comment on above: Performed By: #### C BC ####[facility] [address]xrnevy[address] [place] [address]Dr. Villa Yanes MCHC (RBC) [Mass/Vol] 33.2 g/dL Normal 29.9-35.2 [facility] Comment on above: Performed By: #### C BC ####[facility] Jkvfurkofu6940 [place] [address]Dr. Brooklynkaren Yanes MCV (RBC) [Entitic vol] 94.1 fL Critically high 80.0-94.0 [facility] Comment on above: Performed By: #### C BC ####[facility] Appnccdiyc[address] [place], [place] [address]Dr. Villa Yanes MONO # 0.9 103/ul Critically high 0.3-0.8 [facility] Comment on above: Performed By: #### C BC ####[facility] Bkbqpyhber[address] [place] [address]Dr. Brooklynkaren Yanes Monocytes/100 WBC (Bld) 5.9 % Normal 1.7-12.0 [facility] Comment on above: Performed By: #### C BC ####[facility] Jivconz[address] [place], [place] [address]Dr. Villa Yanes NEUT # 12.0 103/ul Critically high 1.4-6.5 [facility] Comment on above: Performed By: #### C BC ####[facility] Mcgmsvavqa4553 [place] [phone]. Villa Yanes Neutrophils/100 WBC (Bld) 76.2 % Critically high 43.0-75.0 [facility] Comment on above: Performed By: #### C BC ####[facility] Sytxguhztl475[address] [place] [phone]. Villa Yanes Platelet mean volume (Bld) [Entitic vol] 9.8 fL Normal 9.5-13.5 [facility] Comment on above: Performed By: #### C BC ####[facility] Twqvtyxahi4138 [place] [address]Dr. Villa Yanes PLT 397 103/ul Normal 150-450 [facility] Comment on above: Performed By: #### C BC ####[facility] Lhfobzalfn6578 [place] [phone]. Villa Yanes RBC 3.55 106/ul Critically low 4.70-6.10 [facility] Comment on above: Performed By: #### C BC ####[facility] Gqezivsnxo3714 [place] [phone]. Villa Yanes WBC 15.7 103/ul Critically high 4.0-11.0 [facility] Comment on above: Performed By: #### C BC ####[facility] Chnziuiiau8078 [place] [phone]. Villa Yanes GLYCOHEMOGLOBIN A1Con 2021 ADA RECOMMENDATION SEE BELOW Normal [facility] Comment on above: Result Comment: ADA RECOMMENDED LIMIT 4.0 - 6.0 ADA THERAPEUTIC TARGET < 7.0 ACTION SUGGESTED > 7.0 Performed By: #### A 1C ####[facility] Julkewdqfz87[address] [place] [address]Dr. Villa Yanes Glucose [Mass/Vol] 134 mg/dL Normal [facility] Comment on above: Performed By: #### A 1C ####[facility] Bfazmredqe6698 [place] [phone]. Villa Yanes HbA1c (Bld) [Mass fraction] 6.3 % Critically high 4.5-6.2 [facility] Comment on above: Performed By: #### A 1C ####[facility] Ubbhxbecpp8625 [place] [address]Dr. Villa Yanes MAGNESIUMon 12-18-2021 Magnesium [Mass/Vol] 2.2 mg/dL Normal 1.8-2.4 [facility] Comment on above: Performed By: #### M Arabella, PHOS, TSH, CMP ####[facility] Bwqalharpb[address] [place] [address]Dr. Villa Yanes PHOSPHORUSon 12-18-2021 Phosphate [Mass/Vol] 3.6 mg/dL Normal 2.6-4.7 [facility] Comment on above: Performed By: #### Dick Bell, PHOS, TSH, CMP ####[facility] Hegbqfcuhm22[address] [place] [address]Dr. Villa Yanes PROF 14(COMP METB)on 022 Albumin [Mass/Vol] 3.2 g/dL Critically low 3.4-5.0 [facility] Comment on above: Performed By: #### Dick Bell, PHOS, TSH, CMP ####[facility] Ptqcehozsr9828 [place] [address]Dr. Villa Yanes Albumin/Globulin [Mass ratio] 0.8 {ratio} Normal [facility] Comment on above: Performed By: #### Dick Bell, PHOS, TSH, CMP ####[facility] Hcbdfbcntl2513 [place] [address]Dr. Villa Yanes ALP [Catalytic activity/Vol] 141 U/L Critically high 46-116 [facility] Comment on above: Performed By: #### Dick eBll, PHOS, TSH, CMP ####[facility] Dhemddjgxe1204 [place] [address]Dr. Villa Yanes ALT [Catalytic activity/Vol] 8 U/L Critically low 16-63 [facility] Comment on above: Performed By: #### Dick G, PHOS, TSH, CMP ####[facility] Cfjbmchjxo1851 [place] [address]Dr. Villa Yanes Anion gap [Moles/Vol] 13.1 mmol/L Normal [facility] e [facility] Comment on above: Performed By: #### Dick Bell, PHOS, TSH, CMP ####[facility] Iolmracanc[address] [place], [place] [address]Dr. Villa Yanes AST [Catalytic activity/Vol] 5 U/L Critically low 15-37 [facility] Comment on above: Performed By: #### Dick Bell, PHOS, TSH, CMP ####[facility] Yufofwsxab64[address] [place], [place] [address]Dr. Villa Yanes Bilirubin [Mass/Vol] 0.3 mg/dL Normal 0.2-1.0 [facility] Comment on above: Performed By: #### Dick Bell, PHOS, TSH, CMP ####[facility] Opktljrurw1044[address] [place], [place] [address]Dr. Villa Yanes Calcium [Mass/Vol] 9.3 mg/dL Normal 8.5-10.1 [facility] Comment on above: Performed By: #### Dick Bell, PHOS, TSH, CMP ####[facility] Pcktnlgvch[address] [place], [place] [address]Dr. Villa Yanes Chloride [Moles/Vol] 102 mmol/L Normal 98-107 [facility] Comment on above: Performed By: #### Dick Bell, PHOS, TSH, CMP ####[facility] Owrzrpcxcl[address] [place], [place] [address]Dr. Villa Yanes CO2 [Moles/Vol] 28.8 mmol/L Normal 21.0-32.0 [facility] Comment on above: Performed By: #### Dick Bell, PHOS, TSH, CMP ####[facility] Taqcisjkqb4212[address] [place], [place] [address]Dr. Villa Yanes Creatinine [Mass/Vol] 1.20 mg/dL Normal 0.70-1.30 [facility] Comment on above: Performed By: #### Dick G, PHOS, TSH, CMP ####[facility] Ohbwitkunv[address] [place], [place] [address]Dr. Villa Yanes EGFR-AF MARTINIQUAIS >60 Normal >=60 [facility] Comment on above: Performed By: #### M G, PHOS, TSH, CMP ####[facility] Ftybxpqslz8480 [place] [address]Dr. Villa Yanes EGFR-NON AF MARTINIQUAIS 58 mL/min/1.73m2 Critically low >=60 [facility] Comment on above: Performed By: #### M G, PHOS, TSH, CMP ####[facility] Krbizapopx[address] [place], [place] [address]Dr. Villa Yanes Globulin (S) [Mass/Vol] 4.0 g/dL Normal [facility] Comment on above: Performed By: #### M G, PHOS, TSH, CMP ####[facility] Wotibitvjr[address] [place], [place] [address]Dr. Villa Yanes Glucose [Mass/Vol] 143 mg/dL Critically high 74-106 [facility] Comment on above: Performed By: #### M G, PHOS, TSH, CMP ####[facility] Zomalpgbxa[address] [place], [place] [address]Dr. Villa Yanes Potassium [Moles/Vol] 4.9 mmol/L Normal 3.5-5.1 [facility] Comment on above: Performed By: #### M G, PHOS, TSH, CMP ####[facility] Gtrwszuups[address] [place], [place] [address]Dr. Villa Yanes Protein [Mass/Vol] 7.2 g/dL Normal 6.4-8.2 [facility] Comment on above: Performed By: #### M G, PHOS, TSH, CMP ####[facility] Rzcgtzfxjf[address] [place], [place] [address]Dr. Villa Yanes Sodium [Moles/Vol] 139 mmol/L Normal 136-145 [facility] Comment on above: Performed By: #### M G, PHOS, TSH, CMP ####[facility] Tcbeivzpur[address] [place], [place] [address]Dr. Villa Yanes Urea nitrogen [Mass/Vol] 46.0 mg/dL Critically high 7.0-18.0 [facility] Comment on above: Performed By: #### M G, PHOS, TSH, CMP ####[facility] Wlqajyknol95[address] [place], [place] [address]Fp. Villa Yanes Urea nitrogen/Creatinine [Mass ratio] 38.3 mg/mg Normal [facility] Comment on above: Performed By: #### M G, PHOS, TSH, CMP ####[facility] Cezldvbdue2147 [place], [place] [address]Br. Villa Yanes TSHon 12-18-2021 TSH 0.279 uIU/mL Critically low 0.358-3.740 [facility] Comment on above: Performed By: #### M G, PHOS, TSH, CMP ####[facility] Upmhohvplj1654 [place], [place] [address]Lk. Villa Yanes CNPNon 12-13-2021 CNPN Normal [facility] Bacteria Ur Culton 2 Bacteria identified Cx Nom (U) Abnormal [facility] Comment on above: Performed By: #### 6 30-4 ####[facility] LABCLIA [id number] [address] [place] CNPNon 12-04-2021 CNPN Normal [facility] CT KIDNEY WO/W IVCONon 12-04 Radiology Result ACTIONABLE Abnormal [facility] CNPTOUTREACHon 12-03-2021 CNPTOUTREACH Normal [facility] CT KIDNEY WO/W IVCONon 12-02 CT KIDNEY WO/W IVCON Invalid Interpretation Code [facility] CNOVon 11-27-2021 CNOV Normal [facility] CNPNon 11-27-2021 CNPN Normal [facility] CNPTOUTREACHon 11-27-2021 CNPTOUTREACH Normal [facility] CASE MANAGEMon 11-20-2021 CASE MANAGEM Normal [facility] CBC panel Auto (Bld)on 11-20 Erythrocyte distribution width (RBC) [Ratio] 13.4 % Normal 11.5-15.0 [facility] Comment on above: Order Comment: Speci men Type: BLOOD SPECIMENOrdering Facility: [facility] Address: [address] [place], [place] [id number] Performed By: #### 5 8410-2 ####[facility] LABCLIA [id number] [place] [address] [place] Hematocrit (Bld) [Volume fraction] 26.6 % Low 39.0-51.0 [facility] Comment on above: Order Comment: Speci men Type: BLOOD SPECIMENOrdering Facility: [facility] Address: [address] [place], [place] [id number] Performed By: #### 5 8410-2 ####[facility] LABIA [id number] [address] [place] Hemoglobin (Bld) [Mass/Vol] 8.9 g/dL Low 13.0-17.0 [facility] Comment on above: Order Comment: Speci men Type: BLOOD SPECIMENOrdering Facility: [facility] Address: [address] [place], [place] [id number] Performed By: #### 5 8410-2 ####[facility] LABIA [id number] [place] [address] [place] MCH (RBC) [Entitic mass] 30.9 pg Normal 26.0-34.0 [facility] Comment on above: Order Comment: Speci men Type: BLOOD SPECIMENOrdering Facility: [facility] Address: [address] [place], [place] [id number] Performed By: #### 5 8410-2 ####[facility] LABCLIA [id number] [place] [address] [place] MCHC (RBC) [Mass/Vol] 33.5 g/dL Normal 30.5-36.0 [facility] Comment on above: Order Comment: Speci men Type: BLOOD SPECIMENOrdering Facility: [facility] Address: [address] [place], [place] [id number] Performed By: #### 5 8410-2 ####[facility] LABCLIA [id number] [place] [address] [place] MCV (RBC) [Entitic vol] 92.4 fL Normal 80.0-100.0 [facility] Comment on above: Order Comment: Speci men Type: BLOOD SPECIMENOrdering Facility: [facility] Address: [address] [place], [place] [id number] Performed By: #### 5 8410-2 ####[facility] LABIA [id number] [address] [place] Nucleated RBC (Bld) [#/Vol] 10*3/uL Normal <0.01 [facility] Comment on above: Order Comment: Speci men Type: BLOOD SPECIMENOrdering Facility: [facility] Address: [address] [place], [place] [address] Performed By: #### 5 8410-2 ####[facility] LABIA [id number] [address] [place] Platelet mean volume (Bld) [Entitic vol] 10.4 fL Normal 9.0-12.7 [facility] Comment on above: Order Comment: Speci men Type: BLOOD SPECIMENOrdering Facility: [facility] Address: [address] [place], [place] [address] Performed By: #### 5 8410-2 ####[facility] LABIA [id number] [place] [address] [place] Platelets (Bld) [#/Vol] 240 10*3/uL Normal 150-400 [facility] Comment on above: Order Comment: Speci men Type: BLOOD SPECIMENOrdering Facility: [facility] Address: [address] [place], [place] [address] Performed By: #### 5 8410-2 ####[facility] LABCLIA [id number] [place] [address] [place] RBC (Bld) [#/Vol] 2.88 10*6/uL Low 4.20-6.00 [facility] Comment on above: Order Comment: Speci men Type: BLOOD SPECIMENOrdering Facility: [facility] Address: [address] [place] [address] Performed By: #### 5 8410-2 ####[facility] LABCLIA [id number] [place] [address] [place] WBC (Bld) [#/Vol] 9.03 10*3/uL Normal 3.70-11.00 [facility] Comment on above: Order Comment: Speci men Type: BLOOD SPECIMENOrdering Facility: [facility] Address: [address] [place] [address] Performed By: #### 5 8410-2 ####[facility] LABCLIA [id number] [place] [address] [place] CNDSon 11-20-2021 CNDS Normal [facility] CNPNon 11-20-2021 CNPN Normal [facility] Magnesium SerPl-mCncon 11-20 Magnesium [Mass/Vol] 2.1 mg/dL Normal 1.7-2.3 [facility] Comment on above: Order Comment: Speci men Type: BLOOD SPECIMENOrdering Facility: [facility] Address: [address] [place] [address] Performed By: #### 2 4362-6, 95122-7 ####[facility] LABCLIA [id number] [place] [address] [place] NURSING PROGon 11-20-2021 NURSING PROG Normal [facility] Renal function 2000 panelon 11-20-2021 Albumin [Mass/Vol] 2.5 g/dL Low 3.9-4.9 [facility] Comment on above: Order Comment: Speci men Type: BLOOD SPECIMENOrdering Facility: [facility] Address: [address] [place], [place] [id number] Performed By: #### 2 4362-6 ####[facility] LABCLIA [id number] [facility] [place] [address] [place] Anion gap [Moles/Vol] 6 mmol/L Low 9-18 [facility] Comment on above: Order Comment: Speci men Type: BLOOD SPECIMENOrdering Facility: [facility] Address: [address] [place], [place] [address] Performed By: #### 2 4362-6 ####[facility] LABCLIA [id number] [place] [address] [place] Calcium [Mass/Vol] 7.9 mg/dL Low 8.5-10.2 [facility] Comment on above: Order Comment: Speci men Type: BLOOD SPECIMENOrdering Facility: [facility] Address: [address] [place], [place] [address] Performed By: #### 2 4362-6 ####[facility] LABCLIA [id number] [place] [address] [place] Chloride [Moles/Vol] 101 mmol/L Normal 97-105 [facility] Comment on above: Order Comment: Speci men Type: BLOOD SPECIMENOrdering Facility: [facility] Address: [address] [place] [address] Performed By: #### 2 4362-6 ####[facility] LABCLIA [id number] [place] [address] [place] CO2 [Moles/Vol] 30 mmol/L Normal 22-30 [facility] Comment on above: Order Comment: Speci men Type: BLOOD SPECIMENOrdering Facility: [facility] Address: [address] [place] [address] Performed By: #### 2 4362-6 ####[facility] LABCLIA [id number] [place] [id number] [place] Creatinine [Mass/Vol] 1.15 mg/dL Normal 0.73-1.22 [facility] Comment on above: Order Comment: Misbah padilla Type: BLOOD SPECIMENOrdering Facility: [facility] Address: [address] [place] [id number] Performed By: #### 2 4362-6 ####[facility] LABCLIA [id number] [place] [address] [place] ESTIMATED GLOMERULAR FILTRATION RATE 65 mL/min/1.73m??? Normal >=60 [facility] Comment on above: Order Comment: Misbah padilla Type: BLOOD SPECIMENOrdering Facility: [facility] Address: [address] Result Comment: Sandra mated Glomerular Filtration [...] actual GFR. Performed By: #### 2 4362-6 ####[facility] LABCLIA [id number] [place] [address] [place] Glucose [Mass/Vol] 135 mg/dL High 74-99 [facility] Comment on above: Order Comment: Misbah valerie Type: BLOOD SPECIMENOrdering Facility: [facility] Address: [address] Result Comment: The [place] [employer] (ADA) provides guidance for cutoff [...] Standards of Medical Care in Diabetes 2016, [place] [employer]. Diabetes Care. 2016.39(Suppl 1). Performed By: #### 2 4362-6 ####[facility] LABCLIA [id number] [place] [address] [place] Phosphate [Mass/Vol] 3.8 mg/dL Normal 2.7-4.8 [facility] Comment on above: Order Comment: Speci men Type: BLOOD SPECIMENOrdering Facility: [facility] Address: [address] [place], [place] [address] Performed By: #### 2 4362-6 ####[facility] LABIA [id number] [place] [address] [place] Potassium [Moles/Vol] 4.1 mmol/L Normal 3.7-5.1 [facility] Comment on above: Order Comment: Speci men Type: BLOOD SPECIMENOrdering Facility: [facility] Address: [address] [place] [address] Performed By: #### 2 4362-6 ####[facility] LABIA [id number] [place] [address] [place] Sodium [Moles/Vol] 137 mmol/L Normal 136-144 [facility] Comment on above: Order Comment: Speci men Type: BLOOD SPECIMENOrdering Facility: [facility] Address: [address] [place], [place] [address] Performed By: #### 2 4362-6 ####[facility] LABIA [id number] [place] [address] [place] Urea nitrogen [Mass/Vol] 17 mg/dL Normal 9-24 [facility] Comment on above: Order Comment: Speci men Type: BLOOD SPECIMENOrdering Facility: [facility] Address: [address] [place] [address] Performed By: #### 2 4362-6 ####[facility] LABIA [id number] [place] [address] [place] Albumin [Mass/Vol] 2.5 g/dL Low 3.9-4.9 [facility] Comment on above: Order Comment: Speci men Type: BLOOD SPECIMENOrdering Facility: [facility] Address: [address] [place], [place] [address] Performed By: #### 2 4362-6, ####[facility] LABCLIA [id number] [place] [address] [place] Anion gap [Moles/Vol] 7 mmol/L Low 9-18 [facility] Comment on above: Order Comment: Speci men Type: BLOOD SPECIMENOrdering Facility: [facility] Address: [address] [place], [place] [address] Performed By: #### 2 4362-6, ####[facility] LABCLIA [id number] [place] [address] [place] Calcium [Mass/Vol] 8.2 mg/dL Low 8.5-10.2 [facility] Comment on above: Order Comment: Speci men Type: BLOOD SPECIMENOrdering Facility: [facility] Address: [address] [place], [place] [address] Performed By: #### 2 4362-6, ####[facility] LABCLIA [id number] [place] [address] [place] Chloride [Moles/Vol] 104 mmol/L Normal 97-105 [facility] Comment on above: Order Comment: Speci men Type: BLOOD SPECIMENOrdering Facility: [facility] Address: [address] [place], [place] [address] Performed By: #### 2 4362-6, ####[facility] LABCLIA [id number] [place] [id number] [place] CO2 [Moles/Vol] 28 mmol/L Normal 22-30 [facility] Comment on above: Order Comment: Speci men Type: BLOOD SPECIMENOrdering Facility: [facility] Address: [address] [place], [place] [id number] Performed By: #### 2 4362-6, ####[facility] LABCLIA [id number] [place] [id number] [place] Creatinine [Mass/Vol] 1.22 mg/dL Normal 0.73-1.22 [facility] Comment on above: Order Comment: Speci men Type: BLOOD SPECIMENOrdering Facility: [facility] Address: [address] [place], [place] [address] Performed By: #### 2 4362-6, ####[facility] LABIA [id number] [place] [address] [place] ESTIMATED GLOMERULAR FILTRATION RATE 60 mL/min/1.73m??? Normal >=60 [facility] Comment on above: Order Comment: Speci men Type: BLOOD SPECIMENOrdering Facility: [facility] Address: [address] [place], [place] [address] Result Comment: Sandra mated Glomerular Filtration Rate [...] actual GFR. Performed By: #### 2 4362-6, ####[facility] LABIA [id number] [place] [address] [place] Glucose [Mass/Vol] 177 mg/dL High 74-99 [facility] Comment on above: Order Comment: Speci men Type: BLOOD SPECIMENOrdering Facility: [facility] Address: [address] [place], [place] [phone] Result Comment: The [place] Diabetes [employer] (ADA) provides guidance for cutoff [...] Standards of Medical Care in Diabetes 2016, [place] [employer]. Diabetes Care. 2016.39(Suppl 1). Performed By: #### 2 4362-6, ####[facility] LABIA [id number] [place] [address] [place] Phosphate [Mass/Vol] 2.0 mg/dL Low 2.7-4.8 [facility] Comment on above: Order Comment: Speci men Type: BLOOD SPECIMENOrdering Facility: [facility] Address: [address] [place], [place] [address] Performed By: #### 2 4362-6, ####[facility] LABIA [id number] [place] [address] [place] Potassium [Moles/Vol] 3.8 mmol/L Normal 3.7-5.1 [facility] Comment on above: Order Comment: Speci men Type: BLOOD SPECIMENOrdering Facility: [facility] Address: [address] [place], [place] [address] Performed By: #### 2 4362-6, ####[facility] LABIA [id number] [place] [address] [place] Sodium [Moles/Vol] 139 mmol/L Normal 136-144 [facility] Comment on above: Order Comment: Speci men Type: BLOOD SPECIMENOrdering Facility: [facility] Address: [address] [place], [place] [address] Performed By: #### 2 4362-6, ####[facility] LABCLIA [id number] [place] [address] [place] Urea nitrogen [Mass/Vol] 16 mg/dL Normal 9-24 [facility] Comment on above: Order Comment: Speci men Type: BLOOD SPECIMENOrdering Facility: [facility] Address: [address] [place], [place] [address] Performed By: #### 2 4362-6, ####[facility] LABCLIA [id number] [place] [address] [place] THERAPY NTon 11-20-2021 THERAPY NT Normal [facility] CASE MANAGEMon 11-19-2021 CASE MANAGEM Normal [facility] CBC panel Auto (Bld)on 11-19 Erythrocyte distribution width (RBC) [Ratio] 13.3 % Normal 11.5-15.0 [facility] Comment on above: Order Comment: Speci men Type: BLOOD SPECIMENOrdering Facility: [facility] Address: [address] [place], [place] [address] Performed By: #### 5 8410-2 ####[facility] LABIA [id number] [place] [address] [place] Hematocrit (Bld) [Volume fraction] 28.3 % Low 39.0-51.0 [facility] Comment on above: Order Comment: Speci men Type: BLOOD SPECIMENOrdering Facility: [facility] Address: [address] [place], [place] [address] Performed By: #### 5 8410-2 ####[facility] LABCLIA [id number] [place] [address] [place] Hemoglobin (Bld) [Mass/Vol] 9.1 g/dL Low 13.0-17.0 [facility] Comment on above: Order Comment: Speci men Type: BLOOD SPECIMENOrdering Facility: [facility] Address: [address] [place] [address] Performed By: #### 5 8410-2 ####[facility] LABIA [id number] [address] [facility] MCH (RBC) [Entitic mass] 30.2 pg Normal 26.0-34.0 [facility] Comment on above: Order Comment: Speci men Type: BLOOD SPECIMENOrdering Facility: [facility] Address: [address] [place], [place] [address] Performed By: #### 5 8410-2 ####[facility] LABIA [id number] [address] MCHC (RBC) [Mass/Vol] 32.2 g/dL Normal 30.5-36.0 [facility] Comment on above: Order Comment: Speci men Type: BLOOD SPECIMENOrdering Facility: [facility] Address: [address] [place], [place] [address] Performed By: #### 5 8410-2 ####[facility] LABIA [id number] [address] [place] MCV (RBC) [Entitic vol] 94.0 fL Normal 80.0-100.0 [facility] Comment on above: Order Comment: Speci men Type: BLOOD SPECIMENOrdering Facility: [facility] Address: [address] [place] [address] Performed By: #### 5 8410-2 ####[facility] LABIA [id number] [address] [place] Nucleated RBC (Bld) [#/Vol] 10*3/uL Normal <0.01 [facility] Comment on above: Order Comment: Speci men Type: BLOOD SPECIMENOrdering Facility: [facility] Address: [address] [place], [place] [address] Performed By: #### 5 8410-2 ####[facility] LABCLIA [id number] [place] [address] [place] Platelet mean volume (Bld) [Entitic vol] 10.2 fL Normal 9.0-12.7 [facility] Comment on above: Order Comment: Speci men Type: BLOOD SPECIMENOrdering Facility: [facility] Address: [address] [place], [place] [address] Performed By: #### 5 8410-2 ####[facility] LABIA [id number] [place] [address] [place] Platelets (Bld) [#/Vol] 262 10*3/uL Normal 150-400 [facility] Comment on above: Order Comment: Speci men Type: BLOOD SPECIMENOrdering Facility: [facility] Address: [address] [place], [place] [address] Performed By: #### 5 8410-2 ####[facility] LABIA [id number] [place] [address] [place] RBC (Bld) [#/Vol] 3.01 10*6/uL Low 4.20-6.00 [facility] Comment on above: Order Comment: Speci men Type: BLOOD SPECIMENOrdering Facility: [facility] Address: [address] [address] Performed By: #### 5 8410-2 ####[facility] LABIA [id number] [place] [address] [place] WBC (Bld) [#/Vol] 9.65 10*3/uL Normal 3.70-11.00 [facility] Comment on above: Order Comment: Speci men Type: BLOOD SPECIMENOrdering Facility: [facility] Address: [address] [place], [place] [address] Performed By: #### 5 8410-2 ####[facility] LABIA [id number] [place] [address] [place] Magnesium SerPl-mCncon 06-29 -2022 Magnesium [Mass/Vol] 2.2 mg/dL Normal 1.7-2.3 [facility] Comment on above: Order Comment: Speci men Type: BLOOD SPECIMENOrdering Facility: [facility] Address: [address] [place] [address] Performed By: #### 1 9123-9, 35323-9 ####[facility] LABCLIA [id number] [place] [address] [place] NUTRITIONon 11-19-2021 NUTRITION Normal [facility] PT EDon 11-19-2021 PT ED Normal [facility] Renal function 2000 panelon 11-19-2021 Albumin [Mass/Vol] 2.4 g/dL Low 3.9-4.9 [facility] Comment on above: Order Comment: Speci men Type: BLOOD SPECIMENOrdering Facility: [facility] Address: [address] [place] [address] Performed By: #### 1 9123-9, 01807-9 ####[facility] LABCLIA [id number] [place] [address] [place] Anion gap [Moles/Vol] 7 mmol/L Low 9-18 [facility] Comment on above: Order Comment: Speci men Type: BLOOD SPECIMENOrdering Facility: [facility] Address: [address] [place], [place] [address] Performed By: #### 1 9123-9, 85753-1 ####[facility] LABCLIA [id number] [place] [address] [place] Calcium [Mass/Vol] 8.5 mg/dL Normal 8.5-10.2 [facility] Comment on above: Order Comment: Speci men Type: BLOOD SPECIMENOrdering Facility: [facility] Address: [address] [place], [place] [address] Performed By: #### 1 9123-9, 54185-0 ####[facility] LABCLIA [id number] [place] [address] [place] Chloride [Moles/Vol] 105 mmol/L Normal 97-105 [facility] Comment on above: Order Comment: Speci men Type: BLOOD SPECIMENOrdering Facility: [facility] Address: [address] [place] [address] Performed By: #### 1 9123-9, 86776-1 ####[facility] LABCLIA [id number] [place] [address] [place] CO2 [Moles/Vol] 27 mmol/L Normal 22-30 [facility] Comment on above: Order Comment: Speci men Type: BLOOD SPECIMENOrdering Facility: [facility] Address: [address] [place] [address] Performed By: #### 1 9123-9, 71378-3 ####[facility] LABIA [id number] [address] [place] [facility] Creatinine [Mass/Vol] 1.22 mg/dL Normal 0.73-1.22 [facility] Comment on above: Order Comment: Speci men Type: BLOOD SPECIMENOrdering Facility: [facility] Address: [address] [place] [address] Performed By: #### 1 9123-9, 81097-6 ####[facility] LABIA [id number] [address] OF [facility] ESTIMATED GLOMERULAR FILTRATION RATE 60 mL/min/1.73m??? Normal >=60 [facility] Comment on above: Order Comment: Speci men Type: BLOOD SPECIMENOrdering Facility: [facility] Address: [address] [place] [address] Result Comment: Sandra mated Glomerular Filtration Rate [...] actual GFR. Performed By: #### 1 9123-9, 21602-1 ####[facility] LABCLIA [id number] [address] [address] [place] Glucose [Mass/Vol] 146 mg/dL High 74-99 [facility] Comment on above: Order Comment: Misbah padilla Type: BLOOD SPECIMENOrdering Facility: [facility] Address: [address] [place] [address] Result Comment: The [place] Diabetes Association (ADA) provides guidance for cutoff [...] Standards of Medical Care in Diabetes 2016, [place] [employer]. Diabetes Care. 2016.39(Suppl 1). Performed By: #### 1 9123-9, 39192-6 ####[facility] LABCLIA [id number] [address] [address] [place] Phosphate [Mass/Vol] 3.0 mg/dL Normal 2.7-4.8 [facility] Comment on above: Order Comment: Misbah padilla Type: BLOOD SPECIMENOrdering Facility: [facility] Address: [address] [place] [address] Performed By: #### 1 9123-9, 82000-1 ####[facility] LABIA [id number] [address] [address] [place] Potassium [Moles/Vol] 4.1 mmol/L Normal 3.7-5.1 [facility] Comment on above: Order Comment: Speci men Type: BLOOD SPECIMENOrdering Facility: [facility] Address: [address] [place], [place] [address] Performed By: #### 1 9123-9, 58660-2 ####[facility] LABCLIA [id number] [place] [address] [place] Sodium [Moles/Vol] 139 mmol/L Normal 136-144 [facility] Comment on above: Order Comment: Speci men Type: BLOOD SPECIMENOrdering Facility: [facility] Address: [address] [place], [place] [address] Performed By: #### 1 9123-9, 79221-1 ####[facility] LABCLIA [id number] [address] [place] Urea nitrogen [Mass/Vol] 10 mg/dL Normal 9-24 [facility] Comment on above: Order Comment: Speci men Type: BLOOD SPECIMENOrdering Facility: [facility] Address: [address] [place], [place] [address] Performed By: #### 1 9123-9, 26495-5 ####[facility] LABCLIA [id number] [place] [address] [place] THERAPY NTon 11-19-2021 THERAPY NT Normal [facility] CASE MANAGEMon 11-18-2021 CASE MANAGEM Normal [facility] CBC panel Auto (Bld)on 11-18 Erythrocyte distribution width (RBC) [Ratio] 13.4 % Normal 11.5-15.0 [facility] Comment on above: Order Comment: Speci men Type: BLOOD SPECIMENOrdering Facility: [facility] Address: [address] [place], [place] [address] Performed By: #### 5 8410-2 ####[facility] LABCLIA [id number] [address] [place] Hematocrit (Bld) [Volume fraction] 28.5 % Low 39.0-51.0 [facility] Comment on above: Order Comment: Speci men Type: BLOOD SPECIMENOrdering Facility: [facility] Address: [address] [place] [address] Performed By: #### 5 8410-2 ####[facility] LABCLIA [id number] [place] [address] [place] Hemoglobin (Bld) [Mass/Vol] 9.0 g/dL Low 13.0-17.0 [facility] Comment on above: Order Comment: Speci men Type: BLOOD SPECIMENOrdering Facility: [facility] Address: [address] [place] [address] Performed By: #### 5 8410-2 ####[facility] LABCLIA [id number] [place] [address] [place] MCH (RBC) [Entitic mass] 30.4 pg Normal 26.0-34.0 [facility] Comment on above: Order Comment: Speci men Type: BLOOD SPECIMENOrdering Facility: [facility] Address: [address] [place] [address] Performed By: #### 5 8410-2 ####[facility] LABIA [id number] [place] [address] [place] MCHC (RBC) [Mass/Vol] 31.6 g/dL Normal 30.5-36.0 [facility] Comment on above: Order Comment: Speci men Type: BLOOD SPECIMENOrdering Facility: [facility] Address: [address] [place], [place] [address] Performed By: #### 5 8410-2 ####[facility] LABCLIA [id number] [place] [address] [place] MCV (RBC) [Entitic vol] 96.3 fL Normal 80.0-100.0 [facility] Comment on above: Order Comment: Speci men Type: BLOOD SPECIMENOrdering Facility: [facility] Address: [address] [place], [place] [address] Performed By: #### 5 8410-2 ####[facility] LABIA [id number] [place] [address] [place] [facility] Nucleated RBC (Bld) [#/Vol] 10*3/uL Normal <0.01 [facility] Comment on above: Order Comment: Speci men Type: BLOOD SPECIMENOrdering Facility: [facility] Address: [address] [place], [place] [address] Performed By: #### 5 8410-2 ####[facility] [id number] [place] [address] [place] Platelet mean volume (Bld) [Entitic vol] 10.3 fL Normal 9.0-12.7 [facility] Comment on above: Order Comment: Speci men Type: BLOOD SPECIMENOrdering Facility: [facility] Address: [address] [place], [place] [address] Performed By: #### 5 8410-2 ####[facility] LABIA [id number] [address] [place] Platelets (Bld) [#/Vol] 228 10*3/uL Normal 150-400 [facility] Comment on above: Order Comment: Speci men Type: BLOOD SPECIMENOrdering Facility: [facility] Address: [address] [place] [address] Performed By: #### 5 8410-2 ####[facility] LABIA [id number] [place] [address] [place] RBC (Bld) [#/Vol] 2.96 10*6/uL Low 4.20-6.00 [facility] Comment on above: Order Comment: Speci men Type: BLOOD SPECIMENOrdering Facility: [facility] Address: [address] [place], [place] [address] Performed By: #### 5 8410-2 ####[facility] LABCLIA [id number] [place] [address] [place] WBC (Bld) [#/Vol] 8.72 10*3/uL Normal 3.70-11.00 [facility] Comment on above: Order Comment: Speci men Type: BLOOD SPECIMENOrdering Facility: [facility] Address: [address] [place] [address] Performed By: #### 5 8410-2 ####[facility] LABCLIA [id number] [place] [address] [place] Magnesium SerPl-[facility] 11-18 Magnesium [Mass/Vol] 1.7 mg/dL Normal 1.7-2.3 [facility] Comment on above: Order Comment: Speci men Type: BLOOD SPECIMENOrdering Facility: [facility] Address: [address] [place], [place] [address] Performed By: #### 1 9123-9, 2777-1, 61692-4 ####[facility] LABIA [id number] [place] [address] [place] NURSING PROGon 11-18-2021 NURSING PROG Normal [facility] Phosphate SerPl-mCncon 11-18 Phosphate [Mass/Vol] 3.7 mg/dL Normal 2.7-4.8 [facility] Comment on above: Order Comment: Speci men Type: BLOOD SPECIMENOrdering Facility: [facility] Address: [address] [place] [address] Performed By: #### 1 9123-9, 2777-1, 40811-3 ####[facility] LABIA [id number] [place] [address] [place] Renal function 2000 panelon 11-18-2021 Albumin [Mass/Vol] 2.2 g/dL Low 3.9-4.9 [facility] Comment on above: Order Comment: Speci men Type: BLOOD SPECIMENOrdering Facility: [facility] Address: [address] [place], [place] [address] Performed By: #### 1 9123-9, 2777-, 47017-3 ####[facility] LABCLIA [id number] [place] [address] [place] Anion gap [Moles/Vol] 11 mmol/L Normal 9-18 [facility] Comment on above: Order Comment: Speci men Type: BLOOD SPECIMENOrdering Facility: [facility] Address: [address] [place], [place] [address] Performed By: #### 1 9123-9, 2777-1, 26825-0 ####[facility] LABCLIA [id number] [place] [address] [place] Calcium [Mass/Vol] 8.9 mg/dL Normal 8.5-10.2 [facility] Comment on above: Order Comment: Speci men Type: BLOOD SPECIMENOrdering Facility: [facility] Address: [address] [place], [place] [address] Performed By: #### 1 9123-9, 2777-, 44805-2 ####[facility] LABCLIA [id number] [place] [address] [place] Chloride [Moles/Vol] 107 mmol/L High 97-105 [facility] Comment on above: Order Comment: Speci men Type: BLOOD SPECIMENOrdering Facility: [facility] Address: [address] [place], [place] [address] Performed By: #### 1 9123-9, 2777-1, 27405-2 ####[facility] LABCLIA [id number] [place] [id number] [place] CO2 [Moles/Vol] 23 mmol/L Normal 22-30 [facility] Comment on above: Order Comment: Speci men Type: BLOOD SPECIMENOrdering Facility: [facility] Address: [address] [place] [phone] Performed By: #### 1 9123-9, 2777-, 76609-0 ####[facility] LABIA [id number] [place] [address] [place] Creatinine [Mass/Vol] 1.14 mg/dL Normal 0.73-1.22 [facility] Comment on above: Order Comment: Speci men Type: BLOOD SPECIMENOrdering Facility: [facility] Address: [address] [place], [place] [address] Performed By: #### 1 9123-9, 2777-, 96481-1 ####[facility] [id number] [place] [address] [place] ESTIMATED GLOMERULAR FILTRATION RATE 65 mL/min/1.73m??? Normal >=60 [facility] Comment on above: Order Comment: Speci men Type: BLOOD SPECIMENOrdering Facility: [facility] Address: [address] [place] [address] Result Comment: Sandra mated Glomerular Filtration Rate [...] GFR. Performed By: #### 1 9123-9, 2777-, 29557-2 ####[facility] LABIA [id number] [place] [id number] [place] Glucose [Mass/Vol] 89 mg/dL Normal 74-99 [facility] Comment on above: Order Comment: Speci men Type: BLOOD SPECIMENOrdering Facility: [facility] Address: [address] [place], [place] [address] Result Comment: The [place] [employer] (ADA) provides guidance for cutoff [...] Standards of Medical Care in Diabetes 2016, [place] [employer]. Diabetes Care. 2016.39(Suppl 1). Performed By: #### 1 9123-9, 2777-1, 27033-3 ####[facility] LABIA [id number] [place] [address] [place] Phosphate [Mass/Vol] 3.8 mg/dL Normal 2.7-4.8 [facility] Comment on above: Order Comment: Speci men Type: BLOOD SPECIMENOrdering Facility: [facility] Address: [address] [place] [address] Performed By: #### 1 9123-9, 2777-1, 54176-5 ####[facility] LABIA [id number] [place] [address] [place] Potassium [Moles/Vol] 4.2 mmol/L Normal 3.7-5.1 [facility] Comment on above: Order Comment: Speci men Type: BLOOD SPECIMENOrdering Facility: [facility] Address: [address] [place], [place] [phone] Performed By: #### 1 9123-9, 2777-1, 15484-5 ####[facility] LABIA [id number] [place] [address] [place] Sodium [Moles/Vol] 141 mmol/L Normal 136-144 [facility] Comment on above: Order Comment: Speci men Type: BLOOD SPECIMENOrdering Facility: [facility] Address: [address] Performed By: #### 1 9123-9, 2777-1, 95799-2 ####[facility] LABCLIA [id number] [place] [address] [place] Urea nitrogen [Mass/Vol] 5 mg/dL Low 9-24 [facility] Comment on above: Order Comment: Speci men Type: BLOOD SPECIMENOrdering Facility: [facility] Address: [address] [place] [address] Performed By: #### 1 9123-9, 2777-1, 73130-6 ####[facility] LABIA [id number] [place] [address] [place] THERAPY NTon 11-18-2021 THERAPY NT Normal [facility] XR ABDOMEN 1V SUPINEon 11-18 XR ABDOMEN 1V SUPINE [facility] XR ABDOMEN 1V SUPINE Normal [facility] ANES POSTPROC EVALon 022 ANES POSTPROC EVAL Normal [facility] ANES PRE-OPon 11-17-2021 ANES PRE-OP Normal [facility] BRIEF OP NOTon 11-17-2021 BRIEF OP NOT Normal [facility] CASE MANAGEMon 11-17-2021 CASE MANAGEM Normal [facility] CBC panel Auto (Bld)on 11-17 Erythrocyte distribution width (RBC) [Ratio] 13.4 % Normal 11.5-15.0 [facility] Comment on above: Order Comment: Speci men Type: BLOOD SPECIMENOrdering Facility: [facility] Address: [address] [place], [place] [phone] Performed By: #### 5 8410-2 ####[facility] LABIA [id number] [place] [address] [place] Hematocrit (Bld) [Volume fraction] 24.8 % Low 39.0-51.0 [facility] Comment on above: Order Comment: Speci men Type: BLOOD SPECIMENOrdering Facility: [facility] Address: [address] [place] [id number] Performed By: #### 5 8410-2 ####[facility] LABIA [id number] [place] [address] [place] Hemoglobin (Bld) [Mass/Vol] 8.0 g/dL Low 13.0-17.0 [facility] Comment on above: Order Comment: Speci men Type: BLOOD SPECIMENOrdering Facility: [facility] Address: [address] [place], [place] [address] Performed By: #### 5 8410-2 ####[facility] LABIA [id number] [address] [place] MCH (RBC) [Entitic mass] 30.2 pg Normal 26.0-34.0 [facility] Comment on above: Order Comment: Speci men Type: BLOOD SPECIMENOrdering Facility: [facility] Address: [address] [place], [place] [address] Performed By: #### 5 8410-2 ####[facility] LABIA [id number] [address] [place] MCHC (RBC) [Mass/Vol] 32.3 g/dL Normal 30.5-36.0 [facility] Comment on above: Order Comment: Speci men Type: BLOOD SPECIMENOrdering Facility: [facility] Address: [address] [place] [address] Performed By: #### 5 8410-2 ####[facility] LABIA [id number] [place] [address] [place] MCV (RBC) [Entitic vol] 93.6 fL Normal 80.0-100.0 [facility] Comment on above: Order Comment: Speci men Type: BLOOD SPECIMENOrdering Facility: [facility] Address: [address] [place], [place] [address] Performed By: #### 5 8410-2 ####[facility] LABIA [id number] [place] [address] [place] Nucleated RBC (Bld) [#/Vol] 10*3/uL Normal <0.01 [facility] Comment on above: Order Comment: Speci men Type: BLOOD SPECIMENOrdering Facility: [facility] Address: [address] [place], [place] [phone] Performed By: #### 5 8410-2 ####[facility] [id number] [place] [address] [place] Platelet mean volume (Bld) [Entitic vol] 10.1 fL Normal 9.0-12.7 [facility] Comment on above: Order Comment: Speci men Type: BLOOD SPECIMENOrdering Facility: [facility] Address: [address] [place] [address] Performed By: #### 5 8410-2 ####[facility] [id number] [place] [address] [place] Platelets (Bld) [#/Vol] 235 10*3/uL Normal 150-400 [facility] Comment on above: Order Comment: Speci men Type: BLOOD SPECIMENOrdering Facility: [facility] Address: [address] [place], [place] [address] Performed By: #### 5 8410-2 ####[facility] [id number] [place] [address] [place] RBC (Bld) [#/Vol] 2.65 10*6/uL Low 4.20-6.00 [facility] Comment on above: Order Comment: Speci men Type: BLOOD SPECIMENOrdering Facility: [facility] Address: [address] [address] Performed By: #### 5 8410-2 ####[facility] LABIA [id number] [place] [address] [place] WBC (Bld) [#/Vol] 9.08 10*3/uL Normal 3.70-11.00 [facility] Comment on above: Order Comment: Speci men Type: BLOOD SPECIMENOrdering Facility: [facility] Address: [address] [place] [address] Performed By: #### 5 8410-2 ####[facility] LABCLIA [id number] OF [facility] OPERATIVE NOon 11-17-2021 OPERATIVE NO Normal [facility] PT panel Coag (PPP)on 2021 INR Coag (PPP) [Relative time] 1.2 {INR} Normal 0.9-1.3 [facility] Comment on above: Order Comment: Misbah valerie Type: BLOOD SPECIMENOrdering Facility: [facility] Address: [address] [place] [address] Result Comment: Pippa min K Antagonist (VKA) Therapeutic Range: INR 2 to 3 (Target INR of 2.5)Note: For patients treated with VKA drugs, such as warfarin, the [employer] 2012 Guideline recommends [...] al. Chest 2012, 141:7S-47SNishimura RA, et al. [facility] 2017, 70: 252-289 Performed By: #### 3 4528-0 ####[facility] LABCLIA [id number] [place] [address] [place] PT Coag (PPP) [Time] 12.1 s Normal 9.7-13.0 [facility] Comment on above: Order Comment: Speci men Type: BLOOD SPECIMENOrdering Facility: [facility] Address: [address] [place], [place] [address] Performed By: #### 3 4528-0 ####[facility] LABCLIA [id number] [place] [address] [place] PTT, ANTICOAGULANT THERAPYon 11-17-2021 aPTT Coag (PPP) [Time] 74.7 s High 23.0-32.4 [facility] Comment on above: Order Comment: Speci men Type: BLOOD SPECIMENOrdering Facility: [facility] Address: [address] [place] [address] Performed By: #### P TTAC ####[facility] LABCLIA [id number] [place] [address] [place] Renal function 2000 panelon 11-17-2021 Albumin [Mass/Vol] 2.3 g/dL Low 3.9-4.9 [facility] Comment on above: Order Comment: Speci men Type: BLOOD SPECIMENOrdering Facility: [facility] Address: [address] [place], [place] [address] Performed By: #### 2 4362-6 ####[facility] LABIA [id number] [place] [address] [place] Anion gap [Moles/Vol] 7 mmol/L Low 9-18 [facility] Comment on above: Order Comment: Speci men Type: BLOOD SPECIMENOrdering Facility: [facility] Address: [address] [place], [place] [address] Performed By: #### 2 4362-6 ####[facility] LABIA [id number] [place] [address] [place] Calcium [Mass/Vol] 8.5 mg/dL Normal 8.5-10.2 [facility] Comment on above: Order Comment: Speci men Type: BLOOD SPECIMENOrdering Facility: [facility] Address: [address] [place], [place] [address] Performed By: #### 2 4362-6 ####[facility] LABCLIA [id number] [place] [address] [place] Chloride [Moles/Vol] 108 mmol/L High 97-105 [facility] Comment on above: Order Comment: Speci men Type: BLOOD SPECIMENOrdering Facility: [facility] Address: [address] [place], [place] [address] Performed By: #### 2 4362-6 ####[facility] LABCLIA [id number] [place] [address] [place] CO2 [Moles/Vol] 25 mmol/L Normal 22-30 [facility] Comment on above: Order Comment: Speci men Type: BLOOD SPECIMENOrdering Facility: [facility] Address: [address] [place], [place] [address] Performed By: #### 2 4362-6 ####[facility] LABIA [id number] [place] [address] [place] Creatinine [Mass/Vol] 1.04 mg/dL Normal 0.73-1.22 [facility] Comment on above: Order Comment: Speci men Type: BLOOD SPECIMENOrdering Facility: [facility] Address: [address] [place], [place] [address] Performed By: #### 2 4362-6 ####[facility] LABIA [id number] [place] [address] [place] ESTIMATED GLOMERULAR FILTRATION RATE 73 mL/min/1.73m??? Normal >=60 [facility] Comment on above: Order Comment: Speci men Type: BLOOD SPECIMENOrdering Facility: [facility] Address: [address] [place], [place] [address] Result Comment: Sandra mated Glomerular Filtration Rate [...] actual GFR. Performed By: #### 2 4362-6 ####[facility] LABCLIA [id number] [address] [address] [place] Glucose [Mass/Vol] 117 mg/dL High 74-99 [facility] Comment on above: Order Comment: Speci men Type: BLOOD SPECIMENOrdering Facility: [facility] Address: [address] [place] [address] Result Comment: The [place] [employer] (ADA) provides guidance for cutoff [...] Standards of Medical Care in Diabetes 2016, [place] [employer]. Diabetes Care. 2016.39(Suppl 1). Performed By: #### 2 4362-6 ####[facility] LABCLIA [id number] [address] [address] [place] Phosphate [Mass/Vol] 3.1 mg/dL Normal 2.7-4.8 [facility] Comment on above: Order Comment: Speci men Type: BLOOD SPECIMENOrdering Facility: [facility] Address: [address] [place] [address] Performed By: #### 2 4362-6 ####[facility] LABCLIA [id number] [address] [address] [place] Potassium [Moles/Vol] 4.0 mmol/L Normal 3.7-5.1 [facility] Comment on above: Order Comment: Speci men Type: BLOOD SPECIMENOrdering Facility: [facility] Address: [address] [place], [place] [address] Performed By: #### 2 4362-6 ####[facility] LABCLIA [id number] [place] [address] [place] Sodium [Moles/Vol] 140 mmol/L Normal 136-144 [facility] Comment on above: Order Comment: Speci men Type: BLOOD SPECIMENOrdering Facility: [facility] Address: [address] [place], [place] [address] Performed By: #### 2 4362-6 ####[facility] LABCLIA [id number] [address] [place] Urea nitrogen [Mass/Vol] 4 mg/dL Low 9-24 [facility] Comment on above: Order Comment: Speci men Type: BLOOD SPECIMENOrdering Facility: [facility] Address: [address] [place], [place] [address] Performed By: #### 2 4362-6 ####[facility] LABIA [id number] [place] [address] [place] THERAPY NTon 11-17-2021 THERAPY NT Normal [facility] CBC panel Auto (Bld)on 11-16 Erythrocyte distribution width (RBC) [Ratio] 13.4 % Normal 11.5-15.0 [facility] Comment on above: Order Comment: Speci men Type: BLOOD SPECIMENOrdering Facility: [facility] Address: [address] [place], [place] [address] Performed By: #### 5 8410-2 ####[facility] LABCLIA [id number] [address] [place] Hematocrit (Bld) [Volume fraction] 26.7 % Low 39.0-51.0 [facility] Comment on above: Order Comment: Speci men Type: BLOOD SPECIMENOrdering Facility: [facility] Address: [address] [place], [place] [address] Performed By: #### 5 8410-2 ####[facility] [id number] [address] [place] Hemoglobin (Bld) [Mass/Vol] 8.8 g/dL Low 13.0-17.0 [facility] Comment on above: Order Comment: Speci men Type: BLOOD SPECIMENOrdering Facility: [facility] Address: [address] [place] [address] Performed By: #### 5 8410-2 ####[facility] [id number] [place] [address] [place] MCH (RBC) [Entitic mass] 30.4 pg Normal 26.0-34.0 [facility] Comment on above: Order Comment: Speci men Type: BLOOD SPECIMENOrdering Facility: [facility] Address: [address] [place], [place] [address] Performed By: #### 5 8410-2 ####[facility] [id number] [address] [place] MCHC (RBC) [Mass/Vol] 33.0 g/dL Normal 30.5-36.0 [facility] Comment on above: Order Comment: Speci men Type: BLOOD SPECIMENOrdering Facility: [facility] Address: [address] [place], [place] [address] Performed By: #### 5 8410-2 ####[facility] [id number] [place] [address] [place] MCV (RBC) [Entitic vol] 92.4 fL Normal 80.0-100.0 [facility] Comment on above: Order Comment: Speci men Type: BLOOD SPECIMENOrdering Facility: [facility] Address: [address] [place], [place] [address] Performed By: #### 5 8410-2 ####[facility] LABIA [id number] [place] [address] [place] Nucleated RBC (Bld) [#/Vol] 10*3/uL Normal <0.01 [facility] Comment on above: Order Comment: Speci men Type: BLOOD SPECIMENOrdering Facility: [facility] Address: [address] [place], [place] [address] Performed By: #### 5 8410-2 ####[facility] LABIA [id number] [place] [address] [place] Platelet mean volume (Bld) [Entitic vol] 10.1 fL Normal 9.0-12.7 [facility] Comment on above: Order Comment: Speci men Type: BLOOD SPECIMENOrdering Facility: [facility] Address: [address] [place] [address] Performed By: #### 5 8410-2 ####[facility] [id number] [place] [address] [place] Platelets (Bld) [#/Vol] 261 10*3/uL Normal 150-400 [facility] Comment on above: Order Comment: Speci men Type: BLOOD SPECIMENOrdering Facility: [facility] Address: [address] [place], [place] [address] Performed By: #### 5 8410-2 ####[facility] LABIA [id number] [place] [address] [place] RBC (Bld) [#/Vol] 2.89 10*6/uL Low 4.20-6.00 [facility] Comment on above: Order Comment: Speci men Type: BLOOD SPECIMENOrdering Facility: [facility] Address: [address] [place], [place] [address] Performed By: #### 5 8410-2 ####[facility] [id number] [place] [address] [place] WBC (Bld) [#/Vol] 9.81 10*3/uL Normal 3.70-11.00 [facility] Comment on above: Order Comment: Speci men Type: BLOOD SPECIMENOrdering Facility: [facility] Address: [address] [place] [address] Performed By: #### 5 8410-2 ####[facility] LABCLIA [id number] [place] [address] [place] PTT, ANTICOAGULANT THERAPYon 11-16-2021 aPTT Coag (PPP) [Time] 33.9 s High 23.0-32.4 [facility] Comment on above: Order Comment: Speci men Type: BLOOD SPECIMENOrdering Facility: [facility] Address: [address] [place] [address] Performed By: #### P TTAC ####[facility] LABCLIA [id number] [address] [place] aPTT Coag (PPP) [Time] 63.8 s High 23.0-32.4 [facility] Comment on above: Order Comment: Speci men Type: BLOOD SPECIMENOrdering Facility: [facility] Address: [address] [place] [address] Performed By: #### P TTAC ####[facility] LABIA [id number] [place] [address] [place] Renal function 2000 panelon 11-16-2021 Albumin [Mass/Vol] 2.3 g/dL Low 3.9-4.9 [facility] Comment on above: Order Comment: Speci men Type: BLOOD SPECIMENOrdering Facility: [facility] Address: [address] [place], [place] [address] Performed By: #### 2 4362-6 ####[facility] LABIA [id number] [place] [address] [place] Anion gap [Moles/Vol] 10 mmol/L Normal 9-18 [facility] Comment on above: Order Comment: Speci men Type: BLOOD SPECIMENOrdering Facility: [facility] Address: [address] [place] [address] Performed By: #### 2 4362-6 ####[facility] LABCLIA [id number] [facility] [place] [address] [place] Calcium [Mass/Vol] 8.7 mg/dL Normal 8.5-10.2 [facility] Comment on above: Order Comment: Speci men Type: BLOOD SPECIMENOrdering Facility: [facility] Address: [address] [place], [place] [address] Performed By: #### 2 4362-6 ####[facility] LABCLIA [id number] [place] [address] [place] Chloride [Moles/Vol] 109 mmol/L High 97-105 [facility] Comment on above: Order Comment: Speci men Type: BLOOD SPECIMENOrdering Facility: [facility] Address: [address] [place] [address] Performed By: #### 2 4362-6 ####[facility] LABCLIA [id number] [facility] [place] [address] [place] CO2 [Moles/Vol] 23 mmol/L Normal 22-30 [facility] Comment on above: Order Comment: Speci men Type: BLOOD SPECIMENOrdering Facility: [facility] Address: [address] [place] [address] Performed By: #### 2 4362-6 ####[facility] LABCLIA [id number] [place] [address] [place] Creatinine [Mass/Vol] 1.00 mg/dL Normal 0.73-1.22 [facility] Comment on above: Order Comment: Speci men Type: BLOOD SPECIMENOrdering Facility: [facility] Address: [address] [place] [address] Performed By: #### 2 4362-6 ####[facility] LABCLIA [id number] [address] [facility] ESTIMATED GLOMERULAR FILTRATION RATE 77 mL/min/1.73m??? Normal >=60 [facility] Comment on above: Order Comment: Misbah padilla Type: BLOOD SPECIMENOrdering Facility: [facility] Address: [address] [place] [address] Result Comment: Sandra mated Glomerular Filtration Rate [...] actual GFR. Performed By: #### 2 4362-6 ####[facility] LABIA [id number] [place] [address] [place] Glucose [Mass/Vol] 107 mg/dL High 74-99 [facility] Comment on above: Order Comment: Misbah padilla Type: BLOOD SPECIMENOrdering Facility: [facility] Address: [address] [place] [address] Result Comment: The [place] [employer] (ADA) provides guidance for cutoff [...] Standards of Medical Care in Diabetes 2016, [place] [employer]. Diabetes Care. 2016.39(Suppl 1). Performed By: #### 2 4362-6 ####[facility] LABCLIA [id number] [place] [address] [place] Phosphate [Mass/Vol] 3.1 mg/dL Normal 2.7-4.8 [facility] Comment on above: Order Comment: Speci men Type: BLOOD SPECIMENOrdering Facility: [facility] Address: [address] [place] [address] Performed By: #### 2 4362-6 ####[facility] LABCLIA [id number] [place] [address] [place] Potassium [Moles/Vol] 4.0 mmol/L Normal 3.7-5.1 [facility] Comment on above: Order Comment: Speci men Type: BLOOD SPECIMENOrdering Facility: [facility] Address: [address] [place] [address] Performed By: #### 2 4362-6 ####[facility] LABCLIA [id number] [place] [address] [place] Sodium [Moles/Vol] 142 mmol/L Normal 136-144 [facility] Comment on above: Order Comment: Speci men Type: BLOOD SPECIMENOrdering Facility: [facility] Address: [address] [place] [address] Performed By: #### 2 4362-6 ####[facility] LABCLIA [id number] [place] [address] [place] Urea nitrogen [Mass/Vol] 3 mg/dL Low 9-24 [facility] Comment on above: Order Comment: Speci men Type: BLOOD SPECIMENOrdering Facility: [facility] Address: [address] [place], [place] [address] Performed By: #### 2 4362-6 ####[facility] LABCLIA [id number] [place] [address] [place] CBC panel Auto (Bld)on 11-15 Erythrocyte distribution width (RBC) [Ratio] 13.3 % Normal 11.5-15.0 [facility] Comment on above: Order Comment: Speci men Type: BLOOD SPECIMENOrdering Facility: [facility] Address: [address] [place], [place] [address] Performed By: #### 5 8410-2 ####[facility] LABCLIA [id number] [address] [place] Hematocrit (Bld) [Volume fraction] 29.2 % Low 39.0-51.0 [facility] Comment on above: Order Comment: Speci men Type: BLOOD SPECIMENOrdering Facility: [facility] Address: [address] [place], [place] [address] Performed By: #### 5 8410-2 ####[facility] LABIA [id number] [address] [place] Hemoglobin (Bld) [Mass/Vol] 9.4 g/dL Low 13.0-17.0 [facility] Comment on above: Order Comment: Speci men Type: BLOOD SPECIMENOrdering Facility: [facility] Address: [address] [place], [place] [address] Performed By: #### 5 8410-2 ####[facility] LABIA [id number] [address] [place] MCH (RBC) [Entitic mass] 30.3 pg Normal 26.0-34.0 [facility] Comment on above: Order Comment: Speci men Type: BLOOD SPECIMENOrdering Facility: [facility] Address: [address] [place], [place] [address] Performed By: #### 5 8410-2 ####[facility] LABIA [id number] [address] [place] MCHC (RBC) [Mass/Vol] 32.2 g/dL Normal 30.5-36.0 [facility] Comment on above: Order Comment: Speci men Type: BLOOD SPECIMENOrdering Facility: [facility] Address: [address] [place] [address] Performed By: #### 5 8410-2 ####[facility] LABCLIA [id number] [address] MCV (RBC) [Entitic vol] 94.2 fL Normal 80.0-100.0 [facility] Comment on above: Order Comment: Speci men Type: BLOOD SPECIMENOrdering Facility: [facility] Address: [address] [place], [place] [address] Performed By: #### 5 8410-2 ####[facility] LABIA [id number] [place] [address] [place] Nucleated RBC (Bld) [#/Vol] 10*3/uL Normal <0.01 [facility] Comment on above: Order Comment: Speci men Type: BLOOD SPECIMENOrdering Facility: [facility] Address: [address] [address] Performed By: #### 5 8410-2 ####[facility] LABIA [id number] [place] [address] [place] Platelet mean volume (Bld) [Entitic vol] 10.0 fL Normal 9.0-12.7 [facility] Comment on above: Order Comment: Speci men Type: BLOOD SPECIMENOrdering Facility: [facility] Address: [address] [place] [address] Performed By: #### 5 8410-2 ####[facility] LABCLIA [id number] [place] [address] [place] Platelets (Bld) [#/Vol] 336 10*3/uL Normal 150-400 [facility] Comment on above: Order Comment: Speci men Type: BLOOD SPECIMENOrdering Facility: [facility] Address: [address] [place], [place] [address] Performed By: #### 5 8410-2 ####[facility] LABCLIA [id number] [place] [address] [place] RBC (Bld) [#/Vol] 3.10 10*6/uL Low 4.20-6.00 [facility] Comment on above: Order Comment: Speci men Type: BLOOD SPECIMENOrdering Facility: [facility] Address: [address] [place], [place] [address] Performed By: #### 5 8410-2 ####[facility] LABIA [id number] [place] [address] [place] WBC (Bld) [#/Vol] 9.78 10*3/uL Normal 3.70-11.00 [facility] Comment on above: Order Comment: Speci men Type: BLOOD SPECIMENOrdering Facility: [facility] Address: [address] [place], [place] [id number] Performed By: #### 5 8410-2 ####[facility] LABIA [id number] [place] [address] [place] PT EDon 11-15-2021 PT ED Normal [facility] PTT, ANTICOAGULANT THERAPYon 11-15-2021 aPTT Coag (PPP) [Time] 45.7 s High 23.0-32.4 [facility] Comment on above: Order Comment: Speci men Type: BLOOD SPECIMENOrdering Facility: [facility] Address: [address] [place] [address] Performed By: #### P TTAC ####[facility] LABIA [id number] [place] [address] [place] aPTT Coag (PPP) [Time] 73.7 s High 23.0-32.4 [facility] Comment on above: Order Comment: Speci men Type: BLOOD SPECIMENOrdering Facility: [facility] Address: [address] [place], [place] [phone] Performed By: #### P TTAC ####[facility] LABCLIA [id number] [place] [address] [place] aPTT Coag (PPP) [Time] 43.4 s High 23.0-32.4 [facility] Comment on above: Order Comment: Speci men Type: BLOOD SPECIMENOrdering Facility: [facility] Address: [address] [place] [address] Performed By: #### P TTA ####[facility] LABIA [id number] [place] [address] [place] Renal function 2000 panelon 11-15-2021 Albumin [Mass/Vol] 2.5 g/dL Low 3.9-4.9 [facility] Comment on above: Order Comment: Speci men Type: BLOOD SPECIMENOrdering Facility: [facility] Address: [address] [place] [address] Performed By: #### 2 4362-6 ####[facility] [id number] [place] [address] [place] Anion gap [Moles/Vol] 11 mmol/L Normal 9-18 [facility] Comment on above: Order Comment: Speci men Type: BLOOD SPECIMENOrdering Facility: [facility] Address: [address] [place] [address] Performed By: #### 2 4362-6 ####[facility] LABIA [id number] [place] [address] [place] Calcium [Mass/Vol] 8.7 mg/dL Normal 8.5-10.2 [facility] Comment on above: Order Comment: Speci men Type: BLOOD SPECIMENOrdering Facility: [facility] Address: [address] [place], [place] [phone] Performed By: #### 2 4362-6 ####[facility] LABIA [id number] [place] [address] [place] Chloride [Moles/Vol] 110 mmol/L High 97-105 [facility] Comment on above: Order Comment: Speci men Type: BLOOD SPECIMENOrdering Facility: [facility] Address: [address] [address] Performed By: #### 2 4362-6 ####[facility] LABCLIA [id number] [place] [address] [place] CO2 [Moles/Vol] 22 mmol/L Normal 22-30 [facility] Comment on above: Order Comment: Speci men Type: BLOOD SPECIMENOrdering Facility: [facility] Address: [address] [place], [place] [phone] Performed By: #### 2 4362-6 ####[facility] LABCLIA [id number] [address] [place] [facility] Creatinine [Mass/Vol] 0.97 mg/dL Normal 0.73-1.22 [facility] Comment on above: Order Comment: Speci men Type: BLOOD SPECIMENOrdering Facility: [facility] Address: [address] [place], [place] [phone] Performed By: #### 2 4362-6 ####[facility] LABCLIA [id number] [address] [place] ESTIMATED GLOMERULAR FILTRATION RATE 79 mL/min/1.73m??? Normal >=60 [facility] Comment on above: Order Comment: Speci men Type: BLOOD SPECIMENOrdering Facility: [facility] Address: [address] [place], [place] [phone] Result Comment: Sandra mated Glomerular Filtration Rate [...] actual GFR. Performed By: #### 2 4362-6 ####[facility] LABCLIA [id number] [place] [address] [place] Glucose [Mass/Vol] 121 mg/dL High 74-99 [facility] Comment on above: Order Comment: Speci men Type: BLOOD SPECIMENOrdering Facility: [facility] Address: [address] [place] [address] Result Comment: The [place] [employer] (ADA) provides guidance for cutoff [...] Standards of Medical Care in Diabetes 2016, [place] [employer]. Diabetes Care. 2016.39(Suppl 1). Performed By: #### 2 4362-6 ####[facility] LABCLIA [id number] [place] [address] [place] Phosphate [Mass/Vol] 2.5 mg/dL Low 2.7-4.8 [facility] Comment on above: Order Comment: Speci men Type: BLOOD SPECIMENOrdering Facility: [facility] Address: [address] [place], [place] [phone] Performed By: #### 2 4362-6 ####[facility] LABIA [id number] [place] [address] [place] Potassium [Moles/Vol] 3.1 mmol/L Low 3.7-5.1 [facility] Comment on above: Order Comment: Speci men Type: BLOOD SPECIMENOrdering Facility: [facility] Address: [address] [place] [address] Performed By: #### 2 4362-6 ####[facility] LABCLIA [id number] [place] [address] [place] Sodium [Moles/Vol] 143 mmol/L Normal 136-144 [facility] Comment on above: Order Comment: Speci men Type: BLOOD SPECIMENOrdering Facility: [facility] Address: [address] [place] [address] Performed By: #### 2 4362-6 ####[facility] LABCLIA [id number] [place] [address] [place] Urea nitrogen [Mass/Vol] 4 mg/dL Low 9-24 [facility] Comment on above: Order Comment: Speci men Type: BLOOD SPECIMENOrdering Facility: [facility] Address: [address] [place] [address] Performed By: #### 2 4362-6 ####[facility] LABCLIA [id number] [place] [address] [place] TYPE + SCREENon 11-15-2021 ABO O Normal [facility] Comment on above: Order Comment: Speci men Type: BLOOD SPECIMENOrdering Facility: [facility] Address: [address] [place] [address] Performed By: #### T SCR ####[facility] BLOOD BANKCLIA [id number] [place] [address] [place] HISTORICAL AB SCR STATUS Negative Normal [facility] Comment on above: Order Comment: Speci men Type: BLOOD SPECIMENOrdering Facility: [facility] Address: [address] [place], [place] [phone] Performed By: #### T SCR ####[facility] BLOOD BANKIA [id number] [place] [address] [place] Rh Nom (Bld) Positive Normal [facility] Comment on above: Order Comment: Speci men Type: BLOOD SPECIMENOrdering Facility: [facility] Address: [address] [place], [place] [phone] Performed By: #### T SCR ####[facility] BLOOD BANKCLIA [id number] [place] [id number] [place] TYPE AND SCREEN EXPIRATION 11/18/2021 23:59 Normal [facility] Comment on above: Order Comment: Speci men Type: BLOOD SPECIMENOrdering Facility: [facility] Address: [address] [place] [address] Performed By: #### T SCR ####[facility] BLOOD BANKCLIA [id number] [place] [id number] [place] Basic metabolic 2000 panelon 11-14-2021 Anion gap [Moles/Vol] 8 mmol/L Low 9-18 [facility] Comment on above: Order Comment: Speci men Type: BLOOD SPECIMENOrdering Facility: [facility] Address: [address] [place] [address] Performed By: #### 2 4321-2 ####[facility] LABCLIA [id number] [place] [address] [place] Calcium [Mass/Vol] 8.8 mg/dL Normal 8.5-10.2 [facility] Comment on above: Order Comment: Speci men Type: BLOOD SPECIMENOrdering Facility: [facility] Address: [address] [place], [place] [phone] Performed By: #### 2 4321-2 ####[facility] LABCLIA [id number] [place] [address] [place] Chloride [Moles/Vol] 110 mmol/L High 97-105 [facility] Comment on above: Order Comment: Speci men Type: BLOOD SPECIMENOrdering Facility: [facility] Address: [address] [place], [place] [phone] Performed By: #### 2 4321-2 ####[facility] LABCLIA [id number] [place] [address] [place] CO2 [Moles/Vol] 24 mmol/L Normal 22-30 [facility] Comment on above: Order Comment: Speci men Type: BLOOD SPECIMENOrdering Facility: [facility] Address: [address] [place] [address] Performed By: #### 2 4321-2 ####[facility] LABCLIA [id number] [place] [address] [place] Creatinine [Mass/Vol] 0.96 mg/dL Normal 0.73-1.22 [facility] Comment on above: Order Comment: Speci men Type: BLOOD SPECIMENOrdering Facility: [facility] Address: [address] [place] [address] Performed By: #### 2 4321-2 ####[facility] LABIA [id number] [place] [address] [place] ESTIMATED GLOMERULAR FILTRATION RATE 80 mL/min/1.73m??? Normal >=60 [facility] Comment on above: Order Comment: Speci men Type: BLOOD SPECIMENOrdering Facility: [facility] Address: [address] [place] [address] Result Comment: Sandra mated Glomerular Filtration Rate [...] actual GFR. Performed By: #### 2 4321-2 ####[facility] LABIA [id number] [facility] [address] [place] Glucose [Mass/Vol] 113 mg/dL High 74-99 [facility] Comment on above: Order Comment: Speci men Type: BLOOD SPECIMENOrdering Facility: [facility] Address: [address] [place] [address] Result Comment: The [place] Diabetes [employer] (ADA) provides guidance for cutoff [...] Standards of Medical Care in Diabetes 2016, [place] [employer]. Diabetes Care. 2016.39(Suppl 1). Performed By: #### 2 4321-2 ####[facility] LABCLIA [id number] [place] [address] [place] Potassium [Moles/Vol] 3.0 mmol/L Low 3.7-5.1 [facility] Comment on above: Order Comment: Speci men Type: BLOOD SPECIMENOrdering Facility: [facility] Address: [address] [place] [address] Performed By: #### 2 4321-2 ####[facility] LABIA [id number] [place] [address] [place] Sodium [Moles/Vol] 142 mmol/L Normal 136-144 [facility] Comment on above: Order Comment: Speci men Type: BLOOD SPECIMENOrdering Facility: [facility] Address: [address] [place] [address] Performed By: #### 2 4321-2 ####[facility] LABCLIA [id number] [place] [address] [place] Urea nitrogen [Mass/Vol] 3 mg/dL Low 9-24 [facility] Comment on above: Order Comment: Speci men Type: BLOOD SPECIMENOrdering Facility: [facility] Address: [address] [place] [address] Performed By: #### 2 4321-2 ####[facility] LABCLIA [id number] [place] [address] [place] CASE MANAGEMon 11-14-2021 CASE MANAGEM Normal [facility] CBC panel Auto (Bld)on 11-14 Erythrocyte distribution width (RBC) [Ratio] 13.3 % Normal 11.5-15.0 [facility] Comment on above: Order Comment: Speci men Type: BLOOD SPECIMENOrdering Facility: [facility] Address: [address] [place], [place] [phone] Performed By: #### 5 8410-2 ####[facility] [id number] [place] [address] [place] Hematocrit (Bld) [Volume fraction] 29.7 % Low 39.0-51.0 [facility] Comment on above: Order Comment: Speci men Type: BLOOD SPECIMENOrdering Facility: [facility] Address: [address] [place], [place] [id number] Performed By: #### 5 8410-2 ####[facility] [id number] [place] [address] [place] Hemoglobin (Bld) [Mass/Vol] 9.4 g/dL Low 13.0-17.0 [facility] Comment on above: Order Comment: Speci men Type: BLOOD SPECIMENOrdering Facility: [facility] Address: [address] [place], [place] [id number] Performed By: #### 5 8410-2 ####[facility] LABIA [id number] [place] [address] [place] MCH (RBC) [Entitic mass] 30.2 pg Normal 26.0-34.0 [facility] Comment on above: Order Comment: Speci men Type: BLOOD SPECIMENOrdering Facility: [facility] Address: [address] [place], [place] [phone] Performed By: #### 5 8410-2 ####[facility] LABIA [id number] [place] MCHC (RBC) [Mass/Vol] 31.6 g/dL Normal 30.5-36.0 [facility] Comment on above: Order Comment: Speci men Type: BLOOD SPECIMENOrdering Facility: [facility] Address: [address] [place], [place] [address] Performed By: #### 5 8410-2 ####[facility] LABIA [id number] [place] [address] [place] MCV (RBC) [Entitic vol] 95.5 fL Normal 80.0-100.0 [facility] Comment on above: Order Comment: Speci men Type: BLOOD SPECIMENOrdering Facility: [facility] Address: [address] [place], [place] [address] Performed By: #### 5 8410-2 ####[facility] LABIA [id number] [place] [address] [place] Nucleated RBC (Bld) [#/Vol] 10*3/uL Normal <0.01 [facility] Comment on above: Order Comment: Speci men Type: BLOOD SPECIMENOrdering Facility: [facility] Address: [address] [place], [place] [address] Performed By: #### 5 8410-2 ####[facility] LABIA [id number] [place] [address] [place] Platelet mean volume (Bld) [Entitic vol] 9.6 fL Normal 9.0-12.7 [facility] Comment on above: Order Comment: Speci men Type: BLOOD SPECIMENOrdering Facility: [facility] Address: [address] [place], [place] [address] Performed By: #### 5 8410-2 ####[facility] LABCLIA [id number] [place] [address] [place] Platelets (Bld) [#/Vol] 308 10*3/uL Normal 150-400 [facility] Comment on above: Order Comment: Speci men Type: BLOOD SPECIMENOrdering Facility: [facility] Address: [address] [place], [place] [address] Performed By: #### 5 8410-2 ####[facility] LABCLIA [id number] [place] [address] [place] RBC (Bld) [#/Vol] 3.11 10*6/uL Low 4.20-6.00 [facility] Comment on above: Order Comment: Speci men Type: BLOOD SPECIMENOrdering Facility: [facility] Address: [address] [place], [place] [address] Performed By: #### 5 8410-2 ####[facility] LABCLIA [id number] [place] [address] [place] WBC (Bld) [#/Vol] 9.48 10*3/uL Normal 3.70-11.00 [facility] Comment on above: Order Comment: Speci men Type: BLOOD SPECIMENOrdering Facility: [facility] Address: [address] [place], [place] [address] Performed By: #### 5 8410-2 ####[facility] LABIA [id number] [place] [address] [place] NURSING PROGon 11-14-2021 NURSING PROG Normal [facility] NUTRITIONon 11-14-2021 NUTRITION Normal [facility] PTT, ANTICOAGULANT THERAPYon 11-14-2021 aPTT Coag (PPP) [Time] 49.0 s High 23.0-32.4 [facility] Comment on above: Order Comment: Speci men Type: BLOOD SPECIMENOrdering Facility: [facility] Address: [address] [place], [place] [address] Performed By: #### P TTAC ####[facility] LABCLIA [id number] [place] [address] [place] Renal function 2000 panelon 11-14-2021 Albumin [Mass/Vol] 2.1 g/dL Low 3.9-4.9 [facility] Comment on above: Order Comment: Speci men Type: BLOOD SPECIMENOrdering Facility: [facility] Address: [address] [place], [place] [address] Performed By: #### 2 4362-6 ####[facility] LABCLIA [id number] [place] [address] [place] Anion gap [Moles/Vol] 10 mmol/L Normal 9-18 [facility] Comment on above: Order Comment: Speci men Type: BLOOD SPECIMENOrdering Facility: [facility] Address: [address] [place], [place] [address] Performed By: #### 2 4362-6 ####[facility] LABCLIA [id number] [place] [address] [place] Calcium [Mass/Vol] 8.3 mg/dL Low 8.5-10.2 [facility] Comment on above: Order Comment: Speci men Type: BLOOD SPECIMENOrdering Facility: [facility] Address: [address] [place], [place] [address] Performed By: #### 2 4362-6 ####[facility] LABCLIA [id number] [place] [address] [place] Chloride [Moles/Vol] 111 mmol/L High 97-105 [facility] Comment on above: Order Comment: Speci men Type: BLOOD SPECIMENOrdering Facility: [facility] Address: [address] [place], [place] [address] Performed By: #### 2 4362-6 ####[facility] LABCLIA [id number] [place] [address] [place] CO2 [Moles/Vol] 21 mmol/L Low 22-30 [facility] Comment on above: Order Comment: Speci men Type: BLOOD SPECIMENOrdering Facility: [facility] Address: [address] [place] [id number] Performed By: #### 2 4362-6 ####[facility] [id number] [address] STATES [facility] Creatinine [Mass/Vol] 0.91 mg/dL Normal 0.73-1.22 [facility] Comment on above: Order Comment: Speci men Type: BLOOD SPECIMENOrdering Facility: [facility] Address: [address] [place] [address] Performed By: #### 2 4362-6 ####[facility] LABIA [id number] [address] OF [facility] ESTIMATED GLOMERULAR FILTRATION RATE 86 mL/min/1.73m??? Normal >=60 [facility] Comment on above: Order Comment: [place] men Type: BLOOD SPECIMENOrdering Facility: [facility] Address: [address] [place] [address] Result Comment: Sandra mated Glomerular Filtration Rate [...] actual GFR. Performed By: #### 2 4362-6 ####[facility] LABIA [id number] [address] [place] Glucose [Mass/Vol] 97 mg/dL Normal 74-99 [facility] Comment on above: Order Comment: Speci men Type: BLOOD SPECIMENOrdering Facility: [facility] Address: [address] [place] [address] Result Comment: The [place] [employer] (ADA) provides guidance for cutoff [...] Standards of Medical Care in Diabetes 2016, [place] [employer]. Diabetes Care. 2016.39(Suppl 1). Performed By: #### 2 4362-6 ####[facility] LABCLIA [id number] [place] [address] [place] Phosphate [Mass/Vol] 2.3 mg/dL Low 2.7-4.8 [facility] Comment on above: Order Comment: Speci men Type: BLOOD SPECIMENOrdering Facility: [facility] Address: [address] [place] [address] Performed By: #### 2 4362-6 ####[facility] LABIA [id number] [place] [address] [place] Potassium [Moles/Vol] 3.0 mmol/L Low 3.7-5.1 [facility] Comment on above: Order Comment: Speci men Type: BLOOD SPECIMENOrdering Facility: [facility] Address: [address] [place] [address] Performed By: #### 2 4362-6 ####[facility] LABIA [id number] [place] [address] [place] Sodium [Moles/Vol] 142 mmol/L Normal 136-144 [facility] Comment on above: Order Comment: Speci men Type: BLOOD SPECIMENOrdering Facility: [facility] Address: [address] [place], [place] [phone] Performed By: #### 2 4362-6 ####[facility] LABCLIA [id number] [place] [address] [place] Urea nitrogen [Mass/Vol] 3 mg/dL Low 9-24 [facility] Comment on above: Order Comment: Speci men Type: BLOOD SPECIMENOrdering Facility: [facility] Address: [address] [place] [address] Performed By: #### 2 4362-6 ####[facility] LABCLIA [id number] [place] [address] [place] CBC panel Auto (Bld)on 11-13 Erythrocyte distribution width (RBC) [Ratio] 13.5 % Normal 11.5-15.0 [facility] Comment on above: Order Comment: Speci men Type: BLOOD SPECIMENOrdering Facility: [facility] Address: [address] [place] [address] Performed By: #### 5 8410-2 ####[facility] LABIA [id number] [place] [address] [place] Hematocrit (Bld) [Volume fraction] 27.3 % Low 39.0-51.0 [facility] Comment on above: Order Comment: Speci men Type: BLOOD SPECIMENOrdering Facility: [facility] Address: [address] [place] [address] Performed By: #### 5 8410-2 ####[facility] LABIA [id number] [place] [address] [place] Hemoglobin (Bld) [Mass/Vol] 8.8 g/dL Low 13.0-17.0 [facility] Comment on above: Order Comment: Speci men Type: BLOOD SPECIMENOrdering Facility: [facility] Address: [address] [place] [address] Performed By: #### 5 8410-2 ####[facility] LABIA [id number] [place] [address] [place] MCH (RBC) [Entitic mass] 30.6 pg Normal 26.0-34.0 [facility] Comment on above: Order Comment: Speci men Type: BLOOD SPECIMENOrdering Facility: [facility] Address: [address] [place], [place] [phone] Performed By: #### 5 8410-2 ####[facility] LABIA [id number] [address] MCHC (RBC) [Mass/Vol] 32.2 g/dL Normal 30.5-36.0 [facility] Comment on above: Order Comment: Speci men Type: BLOOD SPECIMENOrdering Facility: [facility] Address: [address] [place], [place] [address] Performed By: #### 5 8410-2 ####[facility] LABIA [id number] [place] [address] [place] MCV (RBC) [Entitic vol] 94.8 fL Normal 80.0-100.0 [facility] Comment on above: Order Comment: Speci men Type: BLOOD SPECIMENOrdering Facility: [facility] Address: [address] [place], [place] [address] Performed By: #### 5 8410-2 ####[facility] [id number] [place] [address] [place] Nucleated RBC (Bld) [#/Vol] 10*3/uL Normal <0.01 [facility] Comment on above: Order Comment: Speci men Type: BLOOD SPECIMENOrdering Facility: [facility] Address: [address] [place] [address] Performed By: #### 5 8410-2 ####[facility] LABIA [id number] [place] [address] [place] Platelet mean volume (Bld) [Entitic vol] 9.7 fL Normal 9.0-12.7 [facility] Comment on above: Order Comment: Speci men Type: BLOOD SPECIMENOrdering Facility: [facility] Address: [address] [place], [place] [id number] Performed By: #### 5 8410-2 ####[facility] LABCLIA [id number] [place] [address] [place] Platelets (Bld) [#/Vol] 309 10*3/uL Normal 150-400 [facility] Comment on above: Order Comment: Speci men Type: BLOOD SPECIMENOrdering Facility: [facility] Address: [address] [place], [place] [id number] Performed By: #### 5 8410-2 ####[facility] LABIA [id number] [place] [address] [place] RBC (Bld) [#/Vol] 2.88 10*6/uL Low 4.20-6.00 [facility] Comment on above: Order Comment: Speci men Type: BLOOD SPECIMENOrdering Facility: [facility] Address: [address] [place], [place] [phone] Performed By: #### 5 8410-2 ####[facility] LABIA [id number] [place] [address] [place] WBC (Bld) [#/Vol] 10.12 10*3/uL Normal 3.70-11.00 [facility] Comment on above: Order Comment: Speci men Type: BLOOD SPECIMENOrdering Facility: [facility] Address: [address] [place], [place] [phone] Performed By: #### 5 8410-2 ####[facility] [id number] [place] [address] [place] NURSING PROGon 11-13-2021 NURSING PROG Normal [facility] NURSING PROG Normal [facility] PTT, ANTICOAGULANT THERAPYon 11-13-2021 aPTT Coag (PPP) [Time] 61.2 s High 23.0-32.4 [facility] Comment on above: Order Comment: Speci men Type: BLOOD SPECIMENOrdering Facility: [facility] Address: [address] [place], [place] [phone] Performed By: #### P TTAC ####[facility] LABCLIA [id number] [place] [address] [place] aPTT Coag (PPP) [Time] 63.9 s High 23.0-32.4 [facility] Comment on above: Order Comment: Speci men Type: BLOOD SPECIMENOrdering Facility: [facility] Address: [address] [place], [place] [id number] Performed By: #### P TTAC ####[facility] LABCLIA [id number] [place] [address] [place] aPTT Coag (PPP) [Time] 43.6 s High 23.0-32.4 [facility] Comment on above: Order Comment: Speci men Type: BLOOD SPECIMENOrdering Facility: [facility] Address: [address] [place], [place] [phone] Performed By: #### P TTAC ####[facility] LABIA [id number] [address] [place] aPTT Coag (PPP) [Time] 61.4 s High 23.0-32.4 [facility] Comment on above: Order Comment: Speci men Type: BLOOD SPECIMENOrdering Facility: [facility] Address: [address] [place], [place] [phone] Performed By: #### P TTAC ####[facility] LABCLIA [id number] [place] [address] [place] Renal function 2000 panelon 11-13-2021 Albumin [Mass/Vol] 2.3 g/dL Low 3.9-4.9 [facility] Comment on above: Order Comment: Speci men Type: BLOOD SPECIMENOrdering Facility: [facility] Address: [address] [place], [place] [address] Performed By: #### 2 4362-6 ####[facility] LABCLIA [id number] [place] [address] [place] Anion gap [Moles/Vol] 9 mmol/L Normal 9-18 [facility] Comment on above: Order Comment: Speci men Type: BLOOD SPECIMENOrdering Facility: [facility] Address: [address] [place] [address] Performed By: #### 2 4362-6 ####[facility] LABCLIA [id number] [place] [address] [place] Calcium [Mass/Vol] 8.3 mg/dL Low 8.5-10.2 [facility] Comment on above: Order Comment: Speci men Type: BLOOD SPECIMENOrdering Facility: [facility] Address: [address] [place], [place] [phone] Performed By: #### 2 4362-6 ####[facility] LABCLIA [id number] [place] [address] [place] Chloride [Moles/Vol] 113 mmol/L High 97-105 [facility] Comment on above: Order Comment: Speci men Type: BLOOD SPECIMENOrdering Facility: [facility] Address: [address] [address] Performed By: #### 2 4362-6 ####[facility] LABCLIA [id number] [place] [address] [place] CO2 [Moles/Vol] 21 mmol/L Low 22-30 [facility] Comment on above: Order Comment: Speci men Type: BLOOD SPECIMENOrdering Facility: [facility] Address: [address] [address] Performed By: #### 2 4362-6 ####[facility] LABCLIA [id number] [place] [address] [place] Creatinine [Mass/Vol] 1.01 mg/dL Normal 0.73-1.22 [facility] Comment on above: Order Comment: Speci men Type: BLOOD SPECIMENOrdering Facility: [facility] Address: [address] [place] [address] Performed By: #### 2 4362-6 ####[facility] LABIA [id number] [address] [place] ESTIMATED GLOMERULAR FILTRATION RATE 76 mL/min/1.73m??? Normal >=60 [facility] Comment on above: Order Comment: Misbah padilla Type: BLOOD SPECIMENOrdering Facility: [facility] Address: [address] [place] [address] Result Comment: Sandra mated Glomerular Filtration Rate [...] actual GFR. Performed By: #### 2 4362-6 ####[facility] LABIA [id number] [place] [address] [place] Glucose [Mass/Vol] 123 mg/dL High 74-99 [facility] Comment on above: Order Comment: Misbah padilla Type: BLOOD SPECIMENOrdering Facility: [facility] Address: [address] [place] [address] Result Comment: The [place] Diabetes [employer] (ADA) provides guidance for cutoff [...] Standards of Medical Care in Diabetes 2016, [place] [employer]. Diabetes Care. 2016.39(Suppl 1). Performed By: #### 2 4362-6 ####[facility] LABCLIA [id number] [place] [address] [place] Phosphate [Mass/Vol] 2.9 mg/dL Normal 2.7-4.8 [facility] Comment on above: Order Comment: Speci men Type: BLOOD SPECIMENOrdering Facility: [facility] Address: [address] [place], [place] [phone] Performed By: #### 2 4362-6 ####[facility] LABCLIA [id number] [place] [address] [place] Potassium [Moles/Vol] 3.2 mmol/L Low 3.7-5.1 [facility] Comment on above: Order Comment: Speci men Type: BLOOD SPECIMENOrdering Facility: [facility] Address: [address] [place], [place] [phone] Performed By: #### 2 4362-6 ####[facility] LABIA [id number] [place] [address] [place] Sodium [Moles/Vol] 143 mmol/L Normal 136-144 [facility] Comment on above: Order Comment: Speci men Type: BLOOD SPECIMENOrdering Facility: [facility] Address: [address] [place], [place] [phone] Performed By: #### 2 4362-6 ####[facility] LABCLIA [id number] [place] [address] [place] Urea nitrogen [Mass/Vol] 5 mg/dL Low 9-24 [facility] Comment on above: Order Comment: Speci men Type: BLOOD SPECIMENOrdering Facility: [facility] Address: [address] [address] Performed By: #### 2 4362-6 ####[facility] LABCLIA [id number] [place] [id number] [place] CASE MANAGEMon 11-12-2021 CASE MANAGEM Normal [facility] CBC panel Auto (Bld)on 11-12 Erythrocyte distribution width (RBC) [Ratio] 13.8 % Normal 11.5-15.0 [facility] Comment on above: Order Comment: Speci men Type: BLOOD SPECIMENOrdering Facility: [facility] Address: [address] [place] [address] Performed By: #### 5 8410-2 ####[facility] LABIA [id number] [address] [facility] Hematocrit (Bld) [Volume fraction] 27.9 % Low 39.0-51.0 [facility] Comment on above: Order Comment: Speci men Type: BLOOD SPECIMENOrdering Facility: [facility] Address: [address] [place] [address] Performed By: #### 5 8410-2 ####[facility] LABIA [id number] [address] [facility] Hemoglobin (Bld) [Mass/Vol] 8.9 g/dL Low 13.0-17.0 [facility] Comment on above: Order Comment: Speci men Type: BLOOD SPECIMENOrdering Facility: [facility] Address: [address] [place] [address] Performed By: #### 5 8410-2 ####[facility] LABIA [id number] [place] [address] [place] MCH (RBC) [Entitic mass] 30.1 pg Normal 26.0-34.0 [facility] Comment on above: Order Comment: Speci men Type: BLOOD SPECIMENOrdering Facility: [facility] Address: [address] [place], [place] [phone] Performed By: #### 5 8410-2 ####[facility] LABCLIA [id number] [address] [place] MCHC (RBC) [Mass/Vol] 31.9 g/dL Normal 30.5-36.0 [facility] Comment on above: Order Comment: Speci men Type: BLOOD SPECIMENOrdering Facility: [facility] Address: [address] [address] Performed By: #### 5 8410-2 ####[facility] LABIA [id number] [address] [place] MCV (RBC) [Entitic vol] 94.3 fL Normal 80.0-100.0 [facility] Comment on above: Order Comment: Speci men Type: BLOOD SPECIMENOrdering Facility: [facility] Address: [address] [place], [place] [address] Performed By: #### 5 8410-2 ####[facility] LABIA [id number] [place] [address] [place] Nucleated RBC (Bld) [#/Vol] 10*3/uL Normal <0.01 [facility] Comment on above: Order Comment: Speci men Type: BLOOD SPECIMENOrdering Facility: [facility] Address: [address] [place], [place] [address] Performed By: #### 5 8410-2 ####[facility] LABIA [id number] [place] [address] [place] Platelet mean volume (Bld) [Entitic vol] 9.5 fL Normal 9.0-12.7 [facility] Comment on above: Order Comment: Speci men Type: BLOOD SPECIMENOrdering Facility: [facility] Address: [address] [address] Performed By: #### 5 8410-2 ####[facility] LABCLIA [id number] [place] [address] [place] Platelets (Bld) [#/Vol] 349 10*3/uL Normal 150-400 [facility] Comment on above: Order Comment: Speci men Type: BLOOD SPECIMENOrdering Facility: [facility] Address: [address] [place], [place] [address] Performed By: #### 5 8410-2 ####[facility] LABIA [id number] [place] [address] [place] RBC (Bld) [#/Vol] 2.96 10*6/uL Low 4.20-6.00 [facility] Comment on above: Order Comment: Speci men Type: BLOOD SPECIMENOrdering Facility: [facility] Address: [address] [place], [place] [address] Performed By: #### 5 8410-2 ####[facility] [id number] [place] [address] [place] WBC (Bld) [#/Vol] 10.19 10*3/uL Normal 3.70-11.00 [facility] Comment on above: Order Comment: Speci men Type: BLOOD SPECIMENOrdering Facility: [facility] Address: [address] [place], [place] [address] Performed By: #### 5 8410-2 ####[facility] [id number] [place] [address] [place] Erythrocyte distribution width (RBC) [Ratio] 13.6 % Normal 11.5-15.0 [facility] Comment on above: Order Comment: Speci men Type: BLOOD SPECIMENOrdering Facility: [facility] Address: [address] [place], [place] [address] Performed By: #### 5 8410-2 ####[facility] [id number] [place] [address] [place] Hematocrit (Bld) [Volume fraction] 26.6 % Low 39.0-51.0 [facility] Comment on above: Order Comment: Speci men Type: BLOOD SPECIMENOrdering Facility: [facility] Address: [address] [place], [place] [address] Performed By: #### 5 8410-2 ####[facility] LABCLIA [id number] [place] [address] [place] Hemoglobin (Bld) [Mass/Vol] 8.4 g/dL Low 13.0-17.0 [facility] Comment on above: Order Comment: Speci men Type: BLOOD SPECIMENOrdering Facility: [facility] Address: [address] [place], [place] [address] Performed By: #### 5 8410-2 ####[facility] LABIA [id number] [address] [place] MCH (RBC) [Entitic mass] 30.1 pg Normal 26.0-34.0 [facility] Comment on above: Order Comment: Speci men Type: BLOOD SPECIMENOrdering Facility: [facility] Address: [address] [place] [address] Performed By: #### 5 8410-2 ####[facility] LABIA [id number] [address] [place] MCHC (RBC) [Mass/Vol] 31.6 g/dL Normal 30.5-36.0 [facility] Comment on above: Order Comment: Speci men Type: BLOOD SPECIMENOrdering Facility: [facility] Address: [address] [place], [place] [address] Performed By: #### 5 8410-2 ####[facility] LABIA [id number] [address] [place] MCV (RBC) [Entitic vol] 95.3 fL Normal 80.0-100.0 [facility] Comment on above: Order Comment: Speci men Type: BLOOD SPECIMENOrdering Facility: [facility] Address: [address] [place], [place] [address] Performed By: #### 5 8410-2 ####[facility] LABIA [id number] [id number] [address] [place] Nucleated RBC (Bld) [#/Vol] 10*3/uL Normal <0.01 [facility] Comment on above: Order Comment: Speci men Type: BLOOD SPECIMENOrdering Facility: [facility] Address: [address] [place], [place] [address] Performed By: #### 5 8410-2 ####[facility] LABCLIA [id number] [place] [address] [place] Platelet mean volume (Bld) [Entitic vol] 9.7 fL Normal 9.0-12.7 [facility] Comment on above: Order Comment: Speci men Type: BLOOD SPECIMENOrdering Facility: [facility] Address: [address] [place], [place] [address] Performed By: #### 5 8410-2 ####[facility] LABCLIA [id number] [place] [address] [place] Platelets (Bld) [#/Vol] 313 10*3/uL Normal 150-400 [facility] Comment on above: Order Comment: Speci men Type: BLOOD SPECIMENOrdering Facility: [facility] Address: [address] [place], [place] [address] Performed By: #### 5 8410-2 ####[facility] LABCLIA [id number] [place] [address] [place] RBC (Bld) [#/Vol] 2.79 10*6/uL Low 4.20-6.00 [facility] Comment on above: Order Comment: Speci men Type: BLOOD SPECIMENOrdering Facility: [facility] Address: [address] [place], [place] [address] Performed By: #### 5 8410-2 ####[facility] LABCLIA [id number] [place] [address] [place] WBC (Bld) [#/Vol] 9.10 10*3/uL Normal 3.70-11.00 [facility] Comment on above: Order Comment: Speci men Type: BLOOD SPECIMENOrdering Facility: [facility] Address: [address] [place] [address] Performed By: #### 5 8410-2 ####[facility] LABCLIA [id number] [place] [address] [place] NURSING PROGon 11-12-2021 NURSING PROG Normal [facility] PTT, ANTICOAGULANT THERAPYon 11-12-2021 aPTT Coag (PPP) [Time] 80.0 s High 23.0-32.4 [facility] Comment on above: Order Comment: Speci men Type: BLOOD SPECIMENOrdering Facility: [facility] Address: [address] [place] [address] Result Comment: Inte rpret with caution. Sample centrifuged greater than 1 hour from collection time. According to Clinical and Laboratory Standards [place] guidelines, results could be falsely decreased due to heparin neutralization by in vitro release of platelet factor 4. Suggest correlation with clinical findings and redraw if indicated. Performed By: #### P TTAC ####[facility] LABCLIA [id number] [address] aPTT Coag (PPP) [Time] 47.9 s High 23.0-32.4 [facility] Comment on above: Order Comment: Speci men Type: BLOOD SPECIMENOrdering Facility: [facility] Address: [address] [place], [place] [address] Performed By: #### P TTAC ####[facility] LABCLIA [id number] [address] [place] [facility] aPTT Coag (PPP) [Time] 46.5 s High 23.0-32.4 [facility] Comment on above: Order Comment: Speci men Type: BLOOD SPECIMENOrdering Facility: [facility] Address: [address] [place] [address] Performed By: #### P TTAC ####[facility] LABCLIA [id number] [place] [address] [place] Renal function 2000 panelon 11-12-2021 Albumin [Mass/Vol] 2.7 g/dL Low 3.9-4.9 [facility] Comment on above: Order Comment: Speci men Type: BLOOD SPECIMENOrdering Facility: [facility] Address: [address] [address] Performed By: #### 2 4362-6 ####[facility] LABCLIA [id number] [place] [address] [place] Anion gap [Moles/Vol] 11 mmol/L Normal 9-18 [facility] Comment on above: Order Comment: Speci men Type: BLOOD SPECIMENOrdering Facility: [facility] Address: [address] [place], [place] [address] Performed By: #### 2 4362-6 ####[facility] LABIA [id number] [place] [address] [place] Calcium [Mass/Vol] 8.3 mg/dL Low 8.5-10.2 [facility] Comment on above: Order Comment: Speci men Type: BLOOD SPECIMENOrdering Facility: [facility] Address: [address] [address] Performed By: #### 2 4362-6 ####[facility] LABIA [id number] [place] [address] [place] Chloride [Moles/Vol] 111 mmol/L High 97-105 [facility] Comment on above: Order Comment: Speci men Type: BLOOD SPECIMENOrdering Facility: [facility] Address: [address] [place], [place] [address] Performed By: #### 2 4362-6 ####[facility] LABIA [id number] [place] [id number] [place] CO2 [Moles/Vol] 21 mmol/L Low 22-30 [facility] Comment on above: Order Comment: Speci men Type: BLOOD SPECIMENOrdering Facility: [facility] Address: [address] [place] [address] Performed By: #### 2 4362-6 ####[facility] LABIA [id number] [place] [address] [place] Creatinine [Mass/Vol] 1.07 mg/dL Normal 0.73-1.22 [facility] Comment on above: Order Comment: Speci men Type: BLOOD SPECIMENOrdering Facility: [facility] Address: [address] [place] [address] Performed By: #### 2 4362-6 ####[facility] LABIA [id number] [address] [place] ESTIMATED GLOMERULAR FILTRATION RATE 71 mL/min/1.73m??? Normal >=60 [facility] Comment on above: Order Comment: Speci men Type: BLOOD SPECIMENOrdering Facility: [facility] Address: [address] [place] [address] Result Comment: Sandra mated Glomerular Filtration Rate [...] actual GFR. Performed By: #### 2 4362-6 ####[facility] LABIA [id number] [place] [address] [place] Glucose [Mass/Vol] 133 mg/dL High 74-99 [facility] Comment on above: Order Comment: Speci men Type: BLOOD SPECIMENOrdering Facility: [facility] Address: [address] [place] [address] Result Comment: The [place] [employer] (ADA) provides guidance for cutoff [...] Standards of Medical Care in Diabetes 2016, [place] [employer]. Diabetes Care. 2016.39(Suppl 1). Performed By: #### 2 4362-6 ####[facility] LABCLIA [id number] [place] [address] [place] Phosphate [Mass/Vol] 2.8 mg/dL Normal 2.7-4.8 [facility] Comment on above: Order Comment: Speci men Type: BLOOD SPECIMENOrdering Facility: [facility] Address: [address] [place] [address] Performed By: #### 2 4362-6 ####[facility] LABIA [id number] [place] [address] [place] Potassium [Moles/Vol] 3.0 mmol/L Low 3.7-5.1 [facility] Comment on above: Order Comment: Speci men Type: BLOOD SPECIMENOrdering Facility: [facility] Address: [address] [place] [address] Performed By: #### 2 4362-6 ####[facility] LABCLIA [id number] [place] [address] [place] Sodium [Moles/Vol] 143 mmol/L Normal 136-144 [facility] Comment on above: Order Comment: Speci men Type: BLOOD SPECIMENOrdering Facility: [facility] Address: [address] [place] [address] Performed By: #### 2 4362-6 ####[facility] LABCLIA [id number] [address] [place] Urea nitrogen [Mass/Vol] 9 mg/dL Normal 9-24 [facility] Comment on above: Order Comment: Speci men Type: BLOOD SPECIMENOrdering Facility: [facility] Address: [address] [place] [address] Performed By: #### 2 4362-6 ####[facility] LABCLIA [id number] [place] [address] [place] THERAPY NTon 11-12-2021 THERAPY NT Normal [facility] CBC panel Auto (Bld)on 11-11 Erythrocyte distribution width (RBC) [Ratio] 13.6 % Normal 11.5-15.0 [facility] Comment on above: Order Comment: Speci men Type: BLOOD SPECIMENOrdering Facility: [facility] Address: [address] [place] [address] Performed By: #### 5 8410-2 ####[facility] LABIA [id number] [address] [place] Hematocrit (Bld) [Volume fraction] 27.6 % Low 39.0-51.0 [facility] Comment on above: Order Comment: Speci men Type: BLOOD SPECIMENOrdering Facility: [facility] Address: [address] [place] [address] Performed By: #### 5 8410-2 ####[facility] LABCLIA [id number] [place] [address] [place] Hemoglobin (Bld) [Mass/Vol] 8.9 g/dL Low 13.0-17.0 [facility] Comment on above: Order Comment: Speci men Type: BLOOD SPECIMENOrdering Facility: [facility] Address: [address] [place] [address] Performed By: #### 5 8410-2 ####[facility] LABCLIA [id number] [place] [address] [place] MCH (RBC) [Entitic mass] 30.3 pg Normal 26.0-34.0 [facility] Comment on above: Order Comment: Speci men Type: BLOOD SPECIMENOrdering Facility: [facility] Address: [address] [place], [place] [address] Performed By: #### 5 8410-2 ####[facility] LABCLIA [id number] [address] [place] MCHC (RBC) [Mass/Vol] 32.2 g/dL Normal 30.5-36.0 [facility] Comment on above: Order Comment: Speci men Type: BLOOD SPECIMENOrdering Facility: [facility] Address: [address] [place], [place] [address] Performed By: #### 5 8410-2 ####[facility] LABCLIA [id number] [address] [place] MCV (RBC) [Entitic vol] 93.9 fL Normal 80.0-100.0 [facility] Comment on above: Order Comment: Speci men Type: BLOOD SPECIMENOrdering Facility: [facility] Address: [address] [place], [place] [address] Performed By: #### 5 8410-2 ####[facility] LABCLIA [id number] [address] [place] Nucleated RBC (Bld) [#/Vol] 10*3/uL Normal <0.01 [facility] Comment on above: Order Comment: Speci men Type: BLOOD SPECIMENOrdering Facility: [facility] Address: [address] [place], [place] [address] Performed By: #### 5 8410-2 ####[facility] LABCLIA [id number] [address] [place] Platelet mean volume (Bld) [Entitic vol] 9.4 fL Normal 9.0-12.7 [facility] Comment on above: Order Comment: Speci men Type: BLOOD SPECIMENOrdering Facility: [facility] Address: [address] [place] [address] Performed By: #### 5 8410-2 ####[facility] LABCLIA [id number] [place] [address] [place] Platelets (Bld) [#/Vol] 351 10*3/uL Normal 150-400 [facility] Comment on above: Order Comment: Speci men Type: BLOOD SPECIMENOrdering Facility: [facility] Address: [address] [place] [address] Performed By: #### 5 8410-2 ####[facility] LABIA [id number] [place] [address] [place] RBC (Bld) [#/Vol] 2.94 10*6/uL Low 4.20-6.00 [facility] Comment on above: Order Comment: Speci men Type: BLOOD SPECIMENOrdering Facility: [facility] Address: [address] [address] Performed By: #### 5 8410-2 ####[facility] LABIA [id number] [address] [place] WBC (Bld) [#/Vol] 9.02 10*3/uL Normal 3.70-11.00 [facility] Comment on above: Order Comment: Speci men Type: BLOOD SPECIMENOrdering Facility: [facility] Address: [address] [place] [address] Performed By: #### 5 8410-2 ####[facility] LABIA [id number] [address] OF [facility] BLOOD TYPEon 022 ABO O Normal [facility] Comment on above: Order Comment: Speci men Type: BLOOD SPECIMENOrdering Facility: [facility] Address: [address] [place] [address] Performed By: #### C ONABO ####[facility] BLOOD BANKCLIA [id number] [place] [address] [place] Rh Nom (Bld) Positive Normal [facility] Comment on above: Order Comment: Speci men Type: BLOOD SPECIMENOrdering Facility: [facility] Address: [address] [place] [address] Performed By: #### C ONABO ####[facility] BLOOD BANKCLIA [id number] [place] [address] [place] Gastrointestinal pathogens i dentified SHELLY+probe Nom (Stl)on 11-11-2021 Campylobacter sp DNA SHELLY+probe Nom (Unsp spec) Not detected Normal Not Detected [facility] Comment on above: Order Comment: Speci men Type: STOOL SPECIMENOrdering Facility: [facility] Address: [address] [place] [address] Performed By: #### 7 9390-1 ####[facility] LABCLIA [id number] [place] [address] [place] Salmonella sp DNA SHELLY+probe Ql (Unsp spec) Not detected Normal Not Detected [facility] Comment on above: Order Comment: Speci men Type: STOOL SPECIMENOrdering Facility: [facility] Address: [address] [place], [place] [address] Performed By: #### 7 9390-1 ####[facility] LABCLIA [id number] [place] [address] [place] Shiga toxin stx gene SHELLY+probe Nom (Unsp spec) Not detected Normal Not Detected [facility] Comment on above: Order Comment: Speci men Type: STOOL SPECIMENOrdering Facility: [facility] Address: [address] [place], [place] [address] Performed By: #### 7 9390-1 ####[facility] LABCLIA [id number] [place] [id number] Shigella sp DNA SHELLY+probe Ql (Unsp spec) Not detected Normal Not Detected [facility] Comment on above: Order Comment: Speci men Type: STOOL SPECIMENOrdering Facility: [facility] Address: [address] [place] [address] Performed By: #### 7 9390-1 ####[facility] LABCLIA [id number] [address] PT panel Coag (PPP)on 2021 INR Coag (PPP) [Relative time] 1.1 {INR} Normal 0.9-1.3 [facility] Comment on above: Order Comment: Lucilai valerie Type: BLOOD SPECIMENOrdering Facility: [facility] Address: [address] [place] [address] Result Comment: Pippa min K Antagonist (VKA) Therapeutic Range: INR 2 to 3 (Target INR of 2.5)Note: For patients treated with VKA drugs, such as warfarin, the [employer] 2012 Guideline recommends [...] al. Chest 2012, 141:7S-47SLars RA, et al. [facility] 2017, 70: 252-289 Performed By: #### 3 4528-0, 27261-5 ####[facility] LABCLIA [id number] [address] [place] PT Coag (PPP) [Time] 11.1 s Normal 9.7-13.0 [facility] Comment on above: Order Comment: Speci men Type: BLOOD SPECIMENOrdering Facility: [facility] Address: [address] [place], [place] [address] Performed By: #### 3 4528-0, 30390-4 ####[facility] LABCLIA [id number] [place] [address] [place] Renal function 2000 panelon 11-11-2021 Albumin [Mass/Vol] 2.5 g/dL Low 3.9-4.9 [facility] Comment on above: Order Comment: Speci men Type: BLOOD SPECIMENOrdering Facility: [facility] Address: [address] [place], [place] [address] Performed By: #### 2 4362-6 ####[facility] LABCLIA [id number] [place] [address] [place] Anion gap [Moles/Vol] 11 mmol/L Normal 9-18 [facility] Comment on above: Order Comment: Speci men Type: BLOOD SPECIMENOrdering Facility: [facility] Address: [address] [place], [place] [address] Performed By: #### 2 4362-6 ####[facility] LABCLIA [id number] [place] [address] [place] Calcium [Mass/Vol] 8.5 mg/dL Normal 8.5-10.2 [facility] Comment on above: Order Comment: Speci men Type: BLOOD SPECIMENOrdering Facility: [facility] Address: [address] [place] [address] Performed By: #### 2 4362-6 ####[facility] LABCLIA [id number] [place] [address] [place] Chloride [Moles/Vol] 111 mmol/L High 97-105 [facility] Comment on above: Order Comment: Speci men Type: BLOOD SPECIMENOrdering Facility: [facility] Address: [address] [place], [place] [address] Performed By: #### 2 4362-6 ####[facility] LABCLIA [id number] [place] [address] [place] CO2 [Moles/Vol] 20 mmol/L Low 22-30 [facility] Comment on above: Order Comment: Speci men Type: BLOOD SPECIMENOrdering Facility: [facility] Address: [address] [place] [address] Performed By: #### 2 4362-6 ####[facility] LABCLIA [id number] [place] [address] [place] Creatinine [Mass/Vol] 1.19 mg/dL Normal 0.73-1.22 [facility] Comment on above: Order Comment: Speci men Type: BLOOD SPECIMENOrdering Facility: [facility] Address: [address] [place] [address] Performed By: #### 2 4362-6 ####[facility] LABIA [id number] [address] [place] ESTIMATED GLOMERULAR FILTRATION RATE 62 mL/min/1.73m??? Normal >=60 [facility] Comment on above: Order Comment: Speci men Type: BLOOD SPECIMENOrdering Facility: [facility] Address: [address] [place] [address] Result Comment: Sandra mated Glomerular Filtration Rate [...] actual GFR. Performed By: #### 2 4362-6 ####[facility] LABCLIA [id number] [place] [address] [place] Glucose [Mass/Vol] 101 mg/dL High 74-99 [facility] Comment on above: Order Comment: Speci men Type: BLOOD SPECIMENOrdering Facility: [facility] Address: [address] [place] [address] Result Comment: The [place] [employer] (ADA) provides guidance for cutoff [...] Standards of Medical Care in Diabetes 2016, [employer]. Diabetes Care. 2016.39(Suppl 1). Performed By: #### 2 4362-6 ####[facility] LABIA [id number] [place] [address] [place] Phosphate [Mass/Vol] 3.3 mg/dL Normal 2.7-4.8 [facility] Comment on above: Order Comment: Speci men Type: BLOOD SPECIMENOrdering Facility: [facility] Address: [address] [place], [place] [address] Performed By: #### 2 4362-6 ####[facility] LABIA [id number] [place] [address] [place] Potassium [Moles/Vol] 3.7 mmol/L Normal 3.7-5.1 [facility] Comment on above: Order Comment: Speci men Type: BLOOD SPECIMENOrdering Facility: [facility] Address: [address] [place] [id number] Performed By: #### 2 4362-6 ####[facility] LABIA [id number] [place] [address] [place] Sodium [Moles/Vol] 142 mmol/L Normal 136-144 [facility] Comment on above: Order Comment: Speci men Type: BLOOD SPECIMENOrdering Facility: [facility] Address: [address] [place] [address] Performed By: #### 2 4362-6 ####[facility] LABCLIA [id number] [place] [address] [place] Urea nitrogen [Mass/Vol] 10 mg/dL Normal 9-24 [facility] Comment on above: Order Comment: Speci men Type: BLOOD SPECIMENOrdering Facility: [facility] Address: [address] [place] [address] Performed By: #### 2 4362-6 ####[facility] LABIA [id number] [address] [place] THERAPY NTon 11-11-2021 THERAPY NT Normal [facility] THERAPY NT Normal [facility] THERAPY NT Normal [facility] THERAPY NT Normal [facility] XR ENTERIC TUBE INJECTIONon 11-11-2021 XR ENTERIC TUBE INJECTION Normal [facility] XR MOD BARIUM SWALLOW W SPEE Temo 11-11-2021 XR MOD BARIUM SWALLOW W SPEECH Normal [facility] aPTT PPPon 11-11-2021 aPTT Coag (PPP) [Time] 28.0 s Normal 23.0-32.4 [facility] Comment on above: Order Comment: Speci men Type: BLOOD SPECIMENOrdering Facility: [facility] Address: [address] [place] [address] Performed By: #### 3 4528-0, 47982-8 ####[facility] LABCLIA [id number] [place] [address] [place] Bacteria Bld Culton 11-11-19 22 Bacteria identified Cx Nom (Bld) ORGANISM ID: 1 Staphylococcus epidermidis Probable contaminant. Susceptibility testing will not be performed. Call lab within 72 hours to initiate workup if clinically indicated. GRAM STAIN: Gram positive cocci in clusters Abnormal [facility] Comment on above: Performed By: #### 6 00-7 ####[facility] LABCLIA [id number] [address] [place] Bacteria identified Cx Nom (Bld) CULTURE, BLOOD: No growth 5 days Normal [facility] Comment on above: Performed By: #### 6 00-7 ####[facility] LABCLIA [id number] [place] [address] [place] Bacteria Spec Resp Culton Bacteria identified Respiratory culture Nom (Unsp spec) Abnormal [facility] Comment on above: Performed By: #### 3 2355-0 ####[facility] LABCLIA [id number] [place] [address] [place] CASE MGT INIT ASSESon 2021 CASE MGT INIT ASSES Normal [facility] CONSULTon 11-10-2021 CONSULT Normal [facility] CONSULT Normal [facility] CT ABD/PEL W IVCONon 022 CT ABD/PEL W IVCON Invalid Interpretation Code [facility] ED NOTEon 11-10-2021 ED NOTE HNO ID: [id number] Author: Radha Corley RN Service: Emergency Medicine Author Type: Registered Nurse Type: ED Notes Filed: 11/10/2021 12:24 AM Note Text: Pt to CT scan Normal [facility] HISTORY PHYSICALon HISTORY PHYSICAL Normal [facility] NUTRITIONon 11-10-2021 NUTRITION Normal [facility] PT panel Coag (PPP)on 2021 INR Coag (PPP) [Relative time] 1.1 {INR} Normal 0.9-1.3 [facility] Comment on above: Order Comment: Speci men Type: BLOOD SPECIMENOrdering Facility: [facility] Address: [address] [place] [address] Result Comment: Pippa min K Antagonist (VKA) Therapeutic Range: INR 2 to 3 (Target INR of 2.5)Note: For patients treated with VKA drugs, such as warfarin, the [employer] 2012 Guideline recommends [...] al. Chest 2012, 141:7S-47SNishimura RA, et al. [facility] 2017, 70: 252-289 Performed By: #### 1 4979-9, 87997-3 ####[facility] LABCLIA [id number] [place] [address] [place] PT Coag (PPP) [Time] 11.4 s Normal 9.7-13.0 [facility] Comment on above: Order Comment: Speci men Type: BLOOD SPECIMENOrdering Facility: [facility] Address: [address] [place] [address] Performed By: #### 1 4979-9, 23539-2 ####[facility] LABCLIA [id number] [address] [place] THERAPY NTon 11-10-2021 THERAPY NT Normal [facility] TYPE + SCREENon 11-10-2021 ABO O Normal [facility] Comment on above: Order Comment: Speci men Type: BLOOD SPECIMENOrdering Facility: [facility] Address: [address] [place] [address] Performed By: #### T SCR ####[facility] BLOOD BANKCLIA [id number] [address] [place] HISTORICAL AB SCR STATUS Negative Normal [facility] Comment on above: Order Comment: Speci men Type: BLOOD SPECIMENOrdering Facility: [facility] Address: [address] [place], [place] [address] Performed By: #### T SCR ####[facility] BLOOD BANKCLIA [id number] [place] [address] [place] Rh Nom (Bld) Positive Normal [facility] Comment on above: Order Comment: Speci men Type: BLOOD SPECIMENOrdering Facility: [facility] Address: [address] [place] [address] Performed By: #### T SCR ####[facility] BLOOD BANKIA [id number] [address] OF [facility] TYPE AND SCREEN EXPIRATION 11/13/2021 23:59 Normal [facility] Comment on above: Order Comment: Speci men Type: BLOOD SPECIMENOrdering Facility: [facility] Address: [address] [place] [address] Performed By: #### T SCR ####[facility] BLOOD BANKIA [id number] [address] [place] Urinalysis complete panel (U )on 11-10-2021 Bacteria LM.HPF (Urine sed) [#/Area] Rare Abnormal None Seen [facility] Comment on above: Order Comment: Speci men Type: URINE SPECIMENOrdering Facility: [facility] Address: [address] [place] [address] Performed By: #### 2 4356-8 ####[facility] LABCLIA [id number] [place] [address] [place] Bilirubin Ql (U) Negative Normal Negative [facility] Comment on above: Order Comment: Speci men Type: URINE SPECIMENOrdering Facility: [facility] Address: [address] [place] [address] Performed By: #### 2 4356-8 ####[facility] LABCLIA [id number] [address] [place] Clarity (Unsp spec) Clear Normal Clear [facility] Comment on above: Order Comment: Speci men Type: URINE SPECIMENOrdering Facility: [facility] Address: [address] [place], [place] [address] Performed By: #### 2 4356-8 ####[facility] LABCLIA [id number] [place] [address] [place] Color (U) Straw Normal Yellow [facility] Comment on above: Order Comment: Speci men Type: URINE SPECIMENOrdering Facility: [facility] Address: [address] [place], [place] [address] Performed By: #### 2 4356-8 ####[facility] LABCLIA [id number] [address] [place] Glucose Test strip (U) [Mass/Vol] Negative Normal Negative [facility] Comment on above: Order Comment: Speci men Type: URINE SPECIMENOrdering Facility: [facility] Address: [address] [place], [place] [address] Performed By: #### 2 4356-8 ####[facility] LABCLIA [id number] [place] [address] [place] Hemoglobin Ql (U) Negative Normal Negative [facility] Comment on above: Order Comment: Speci men Type: URINE SPECIMENOrdering Facility: [facility] Address: [address] [place], [place] [address] Performed By: #### 2 4356-8 ####[facility] LABCLIA [id number] [place] [address] [place] Ketones Ql (U) Negative Normal Negative [facility] Comment on above: Order Comment: Speci men Type: URINE SPECIMENOrdering Facility: [facility] Address: [address] [place], [place] [address] Performed By: #### 2 4356-8 ####[facility] LABCLIA [id number] [place] [address] [place] Leukocyte esterase Test strip Ql (U) 2+ Abnormal Negative [facility] Comment on above: Order Comment: Speci men Type: URINE SPECIMENOrdering Facility: [facility] Address: [address] [place], [place] [address] Performed By: #### 2 4356-8 ####[facility] LABCLIA [id number] [place] [address] [place] Nitrite Ql (U) Negative Normal Negative [facility] Comment on above: Order Comment: Speci men Type: URINE SPECIMENOrdering Facility: [facility] Address: [address] [place], [place] [address] Performed By: #### 2 4356-8 ####[facility] LABIA [id number] [place] [address] [place] pH (U) 6.0 [pH] Normal 5.0-8.0 [facility] Comment on above: Order Comment: Speci men Type: URINE SPECIMENOrdering Facility: [facility] Address: [address] [place], [place] [address] Performed By: #### 2 4356-8 ####[facility] LABIA [id number] [place] [address] [place] [facility] Protein (U) [Mass/Vol] 1+ Abnormal Negative [facility] Comment on above: Order Comment: Speci men Type: URINE SPECIMENOrdering Facility: [facility] Address: [address] [place], [place] [address] Performed By: #### 2 4356-8 ####[facility] LABIA [id number] [place] [address] [place] RBC LM.HPF (Urine sed) [#/Area] 0-3 /HPF Normal 0-3 /HPF [facility] Comment on above: Order Comment: Speci men Type: URINE SPECIMENOrdering Facility: [facility] Address: [address] [place], [place] [address] Performed By: #### 2 4356-8 ####[facility] LABIA [id number] [place] [address] [place] Specific gravity (U) [Rel density] 1.031 High 1.005-1.030 [facility] Comment on above: Order Comment: Speci men Type: URINE SPECIMENOrdering Facility: [facility] Address: [address] [place] [address] Performed By: #### 2 4356-8 ####[facility] LABIA [id number] [place] [address] [place] Urobilinogen Ql (U) Negative Normal Negative [facility] Comment on above: Order Comment: Speci men Type: URINE SPECIMENOrdering Facility: [facility] Address: [address] [place] [address] Performed By: #### 2 4356-8 ####[facility] [id number] [place] [address] [place] WBC LM.HPF (Urine sed) [#/Area] 11-25 /HPF Abnormal 0-5 /HPF [facility] Comment on above: Order Comment: Speci men Type: URINE SPECIMENOrdering Facility: [facility] Address: [address] [place] [address] Performed By: #### 2 4356-8 ####[facility] LABIA [id number] [place] [address] [place] Yeast.budding LM.HPF (Urine sed) [#/Area] Few Abnormal None Seen [facility] Comment on above: Order Comment: Speci men Type: URINE SPECIMENOrdering Facility: [facility] Address: [address] [place], [place] [address] Performed By: #### 2 4356-8 ####[facility] LABIA [id number] [place] [address] [place] XR CHEST 2V FRONTAL/LATon XR CHEST 2V FRONTAL/LAT Normal [facility] aPTT PPPon 11-10-2021 aPTT Coag (PPP) [Time] 28.8 s Normal 23.0-32.4 [facility] Comment on above: Order Comment: Speci men Type: BLOOD SPECIMENOrdering Facility: [facility] [facility] Address: [address] [place] [address] Performed By: #### 1 4979-9, 65989-5 ####[facility] LABCLIA [id number] [place] [address] [place] CBC W Auto Differential pane l (Bld)on 11-09-2021 Basophils (Bld) [#/Vol] 0.09 10*3/uL Normal <0.11 [facility] Comment on above: Order Comment: Speci men Type: BLOOD SPECIMENOrdering Facility: [facility] Address: [address] [place] [address] Performed By: #### 5 7021-8, 58841-4 ####[facility] LABIA [id number] [place] [address] [place] Basophils/100 WBC (Bld) 0.6 % Normal [facility] Comment on above: Order Comment: Speci men Type: BLOOD SPECIMENOrdering Facility: [facility] Address: [address] [place] [address] Performed By: #### 5 7021-8, 70092-9 ####[facility] LABCLIA [id number] [address] [place] Differential cell count method Nom (Bld) Auto Normal [facility] Comment on above: Order Comment: Speci men Type: BLOOD SPECIMENOrdering Facility: [facility] Address: [address] [place] [address] Performed By: #### 5 7021-8, 14911-0 ####[facility] LABCLIA [id number] [place] [address] [place] Eosinophils (Bld) [#/Vol] 0.45 10*3/uL Normal <0.46 [facility] Comment on above: Order Comment: Speci men Type: BLOOD SPECIMENOrdering Facility: [facility] Address: [address] [place] [address] Performed By: #### 5 7021-8, 04861-2 ####[facility] LABCLIA [id number] [address] [place] Eosinophils/100 WBC (Bld) 3.2 % Normal [facility] Comment on above: Order Comment: Speci men Type: BLOOD SPECIMENOrdering Facility: [facility] Address: [address] [place] [address] Performed By: #### 5 7021-8, 93609-6 ####[facility] LABCLIA [id number] [address] [place] [facility] Erythrocyte distribution width (RBC) [Ratio] 13.5 % Normal 11.5-15.0 [facility] Comment on above: Order Comment: Speci men Type: BLOOD SPECIMENOrdering Facility: [facility] Address: [address] [place] [address] Performed By: #### 5 7021-8, 13980-5 ####[facility] LABCLIA [id number] [place] [address] [place] Hematocrit (Bld) [Volume fraction] 33.5 % Low 39.0-51.0 [facility] Comment on above: Order Comment: Speci men Type: BLOOD SPECIMENOrdering Facility: [facility] Address: [address] [place] [address] Performed By: #### 5 7021-8, 05074-1 ####[facility] LABCLIA [id number] [place] [address] [place] Hemoglobin (Bld) [Mass/Vol] 10.7 g/dL Low 13.0-17.0 [facility] Comment on above: Order Comment: Speci men Type: BLOOD SPECIMENOrdering Facility: [facility] Address: [address] [place], [place] [id number] Performed By: #### 5 7021-8, 04950-2 ####[facility] LABCLIA [id number] [address] [place] IMMATURE GRAN % 0.8 % Normal [facility] Comment on above: Order Comment: Speci men Type: BLOOD SPECIMENOrdering Facility: [facility] Address: [address] [place], [place] [id number] Performed By: #### 5 7021-8, 14194-0 ####[facility] LABCLIA [id number] [place] [address] [place] IMMATURE GRAN ABS 0.11 k/uL High <0.10 [facility] Comment on above: Order Comment: Speci men Type: BLOOD SPECIMENOrdering Facility: [facility] Address: [address] [place], [place] [address] Performed By: #### 5 7021-8, 32716-0 ####[facility] LABCLIA [id number] [place] [address] [place] Lymphocytes (Bld) [#/Vol] 1.73 10*3/uL Normal 1.00-4.00 [facility] Comment on above: Order Comment: Speci men Type: BLOOD SPECIMENOrdering Facility: [facility] Address: [address] [place], [place] [address] Performed By: #### 5 7021-8, 69074-8 ####[facility] LABCLIA [id number] [address] [place] Lymphocytes/100 WBC (Bld) 12.1 % Normal [facility] Comment on above: Order Comment: Speci men Type: BLOOD SPECIMENOrdering Facility: [facility] Address: [address] [address] Performed By: #### 5 7021-8, 21197-7 ####[facility] LABCLIA [id number] [place] [address] [place] MCH (RBC) [Entitic mass] 30.1 pg Normal 26.0-34.0 [facility] Comment on above: Order Comment: Speci men Type: BLOOD SPECIMENOrdering Facility: [facility] Address: [address] [place], [place] [id number] Performed By: #### 5 7021-8, 66248-7 ####[facility] LABIA [id number] [address] [place] MCHC (RBC) [Mass/Vol] 31.9 g/dL Normal 30.5-36.0 [facility] Comment on above: Order Comment: Speci men Type: BLOOD SPECIMENOrdering Facility: [facility] Address: [address] [place], [place] [address] Performed By: #### 5 7021-8, 17094-3 ####[facility] LABIA [id number] [place] [address] [place] MCV (RBC) [Entitic vol] 94.4 fL Normal 80.0-100.0 [facility] Comment on above: Order Comment: Speci men Type: BLOOD SPECIMENOrdering Facility: [facility] Address: [address] [address] Performed By: #### 5 7021-8, 36128-5 ####[facility] LABIA [id number] [place] [address] [place] Monocytes (Bld) [#/Vol] 0.66 10*3/uL Normal <0.87 [facility] Comment on above: Order Comment: Speci men Type: BLOOD SPECIMENOrdering Facility: [facility] Address: [address] [place], [place] [address] Performed By: #### 5 7021-8, 21757-4 ####[facility] LABIA [id number] [place] [address] [place] Monocytes/100 WBC (Bld) 4.6 % Normal [facility] Comment on above: Order Comment: Speci men Type: BLOOD SPECIMENOrdering Facility: [facility] Address: [address] [place], [place] [address] Performed By: #### 5 7021-8, 59299-7 ####[facility] LABIA [id number] [place] [address] [place] Neutrophils (Bld) [#/Vol] 11.24 10*3/uL High 1.45-7.50 [facility] Comment on above: Order Comment: Speci men Type: BLOOD SPECIMENOrdering Facility: [facility] Address: [address] [place], [place] [address] Performed By: #### 5 7021-8, 09968-0 ####[facility] LABIA [id number] [place] [address] [place] Neutrophils/100 WBC (Bld) 78.7 % Normal [facility] Comment on above: Order Comment: Speci men Type: BLOOD SPECIMENOrdering Facility: [facility] Address: [address] [place] [address] Performed By: #### 5 7021-8, 49485-8 ####[facility] LABIA [id number] [place] [address] [place] Nucleated RBC (Bld) [#/Vol] 10*3/uL Normal <0.01 [facility] Comment on above: Order Comment: Speci men Type: BLOOD SPECIMENOrdering Facility: [facility] Address: [address] [place] [address] Performed By: #### 5 7021-8, 98875-6 ####[facility] LABCLIA [id number] [place] [address] [place] Nucleated RBC/100 WBC (Bld) [Ratio] 0.0 /100 WBC Normal [facility] Comment on above: Order Comment: Speci men Type: BLOOD SPECIMENOrdering Facility: [facility] Address: [address] [place] [address] Performed By: #### 5 7021-8, 07667-9 ####[facility] LABCLIA [id number] [place] [address] [place] Platelet mean volume (Bld) [Entitic vol] 9.2 fL Normal 9.0-12.7 [facility] Comment on above: Order Comment: Speci men Type: BLOOD SPECIMENOrdering Facility: [facility] Address: [address] [place] [address] Performed By: #### 5 7021-8, 43738-2 ####[facility] LABCLIA [id number] [place] [address] [place] Platelets (Bld) [#/Vol] 432 10*3/uL High 150-400 [facility] Comment on above: Order Comment: Speci men Type: BLOOD SPECIMENOrdering Facility: [facility] Address: [address] [place], [place] [address] Performed By: #### 5 7021-8, 87503-3 ####[facility] LABCLIA [id number] [place] [address] [place] RBC (Bld) [#/Vol] 3.55 10*6/uL Low 4.20-6.00 [facility] Comment on above: Order Comment: Speci men Type: BLOOD SPECIMENOrdering Facility: [facility] Address: [address] [place] [address] Performed By: #### 5 7021-8, 17414-2 ####[facility] LABCLIA [id number] [address] [address] [place] WBC (Bld) [#/Vol] 14.28 10*3/uL High 3.70-11.00 [facility] Comment on above: Order Comment: Speci men Type: BLOOD SPECIMENOrdering Facility: [facility] Address: [address] [place] [address] Performed By: #### 5 7021-8, 67452-4 ####[facility] LABCLIA [id number] [place] [id number] [place] Comprehensive metabolic 2000 panelon 11-09-2021 Albumin [Mass/Vol] 3.4 g/dL Low 3.9-4.9 [facility] Comment on above: Order Comment: Speci men Type: BLOOD SPECIMENOrdering Facility: [facility] Address: [address] [place] [address] Performed By: #### 2 4323-8, 3040-3, 91308-1, 94788-0, 3016-3 ####[facility] LABCLIA [id number] [place] [address] [place] ALP [Catalytic activity/Vol] 92 U/L Normal 38-113 [facility] Comment on above: Order Comment: Speci men Type: BLOOD SPECIMENOrdering Facility: [facility] Address: [address] [place], [place] [address] Performed By: #### 2 4323-8, 3040-3, 62493-3, 91636-1, 3016-3 ####[facility] LABCLIA [id number] [place] [id number] [place] ALT [Catalytic activity/Vol] 6 U/L Low 10-54 [facility] Comment on above: Order Comment: Speci men Type: BLOOD SPECIMENOrdering Facility: [facility] Address: [address] [place], [place] [address] Performed By: #### 2 4323-8, 3040-3, 15910-3, 46034-8, 3016-3 ####[facility] LABCLIA [id number] [place] [id number] [place] Anion gap [Moles/Vol] 12 mmol/L Normal 9-18 [facility] Comment on above: Order Comment: Speci men Type: BLOOD SPECIMENOrdering Facility: [facility] Address: [address] [place] [address] Performed By: #### 2 4323-8, 3040-3, 54198-4, 14044-8, 3016-3 ####[facility] LABIA [id number] [place] [address] [place] AST [Catalytic activity/Vol] 8 U/L Low 14-40 [facility] Comment on above: Order Comment: Speci men Type: BLOOD SPECIMENOrdering Facility: [facility] Address: [address] [place] [address] Performed By: #### 2 4323-8, 3040-3, 49822-3, 50447-8, 6-3 ####[facility] LABIA [id number] [place] [address] [place] Bilirubin [Mass/Vol] 0.2 mg/dL Normal 0.2-1.3 [facility] Comment on above: Order Comment: Speci men Type: BLOOD SPECIMENOrdering Facility: [facility] Address: [address] [place] [address] Performed By: #### 2 4323-8, 3040-3, 31460-6, 23317-3, 3016-3 ####[facility] LABCLIA [id number] [place] [address] [place] Calcium [Mass/Vol] 9.7 mg/dL Normal 8.5-10.2 [facility] Comment on above: Order Comment: Speci men Type: BLOOD SPECIMENOrdering Facility: [facility] Address: [address] [place], [place] [address] Performed By: #### 2 4323-8, 3040-3, 11730-4, 17720-7, 3015-3 ####[facility] LABCLIA [id number] [facility] [place] [id number] [place] Chloride [Moles/Vol] 107 mmol/L High 97-105 [facility] Comment on above: Order Comment: Speci men Type: BLOOD SPECIMENOrdering Facility: [facility] Address: [address] [place], [place] [address] Performed By: #### 2 4323-8, 3040-3, 39685-9, 91729-3, 6-3 ####[facility] LABCLIA [id number] [place] [address] [place] CO2 [Moles/Vol] 22 mmol/L Normal 22-30 [facility] Comment on above: Order Comment: Speci men Type: BLOOD SPECIMENOrdering Facility: [facility] Address: [address] [place], [place] [address] Performed By: #### 2 4323-8, 3040-3, 89599-0, 02035-7, 6-3 ####[facility] LABCLIA [id number] [place] [address] [place] Creatinine [Mass/Vol] 1.13 mg/dL Normal 0.73-1.22 [facility] Comment on above: Order Comment: Speci men Type: BLOOD SPECIMENOrdering Facility: [facility] Address: [address] [place], [place] [address] Performed By: #### 2 4323-8, 3040-3, 85644-2, 84935-8, 6-3 ####[facility] LABCLIA [id number] [facility] [place] [id number] [place] ESTIMATED GLOMERULAR FILTRATION RATE 66 mL/min/1.73m??? Normal >=60 [facility] Comment on above: Order Comment: Misbah valerie Type: BLOOD SPECIMENOrdering Facility: [facility] Address: [address] [place] [address] Result Comment: Sandra mated Glomerular Filtration Rate [...] GFR. Performed By: #### 2 4323-8, 3040-3, 90586-6, 97602-0, 6-3 ####[facility] LABCLIA [id number] [address] [address] [place] Glucose [Mass/Vol] 130 mg/dL High 74-99 [facility] Comment on above: Order Comment: Misbah padilla Type: BLOOD SPECIMENOrdering Facility: [facility] Address: [address] [place] [address] Result Comment: The [place] Diabetes Association (ADA) provides guidance for cutoff [...] Standards of Medical Care in Diabetes 2016, [place] Diabetes Association. Diabetes Care. 2016.39(Suppl 1). Performed By: #### 2 4323-8, 3040-3, 83661-5, 88508-3, 6-3 ####[facility] LABCLIA [id number] [address] [address] [place] Potassium [Moles/Vol] 4.0 mmol/L Normal 3.7-5.1 [facility] Comment on above: Order Comment: Speci men Type: BLOOD SPECIMENOrdering Facility: [facility] Address: [address] [place] [address] Performed By: #### 2 4323-8, 3040-3, 10358-7, 45266-7, 3016-3 ####[facility] LABCLIA [id number] [place] [address] [place] Protein [Mass/Vol] 6.5 g/dL Normal 6.3-8.0 [facility] Comment on above: Order Comment: Speci men Type: BLOOD SPECIMENOrdering Facility: [facility] Address: [address] [place] [address] Performed By: #### 2 4323-8, 3040-3, 91731-9, 04691-5, 3016-3 ####[facility] LABCLIA [id number] [place] [address] [place] Sodium [Moles/Vol] 141 mmol/L Normal 136-144 [facility] Comment on above: Order Comment: Speci men Type: BLOOD SPECIMENOrdering Facility: [facility] Address: [address] [place] [address] Performed By: #### 2 4323-8, 3040-3, 82160-4, 91836-0, 3016-3 ####[facility] LABCLIA [id number] [place] [address] [place] Urea nitrogen [Mass/Vol] 13 mg/dL Normal 9-24 [facility] Comment on above: Order Comment: Speci men Type: BLOOD SPECIMENOrdering Facility: [facility] Address: [address] [place] [address] Performed By: #### 2 4323-8, 3040-3, 91610-7, 77094-8, 3016-3 ####[facility] LABCLIA [id number] [place] [id number] [place] ED NOTEon 11-09-2021 ED NOTE Normal [facility] ED PROV NOTEon 11-09-2021 ED PROV NOTE Normal [facility] HbA1c (Bld)on 11-09-2021 Average glucose Estimated from glycated hemoglobin (Bld) [Mass/Vol] 128 mg/dL Normal [facility] Comment on above: Order Comment: Speci men Type: BLOOD SPECIMENOrdering Facility: [facility] Address: [address] [address] Result Comment: eAG: (Estimated average glucose) is a calculated value from HgbA1c and is bilingual sales representative of the average blood glucose level in the last 2-3 month period. Performed By: #### 5 7021-8, 54686-4 ####[facility] LABCLIA [id number] [address] [place] [facility] HbA1c (Bld) [Mass fraction] 6.1 % High 4.3-5.6 [facility] Comment on above: Order Comment: Misbah paidlla Type: BLOOD SPECIMENOrdering Facility: [facility] Address: [address] [place] [address] Result Comment: [place] Diabetes Association guidelines indicate that patients with HgbA1c in the range 5.7-6.4% are at increased risk for development of diabetes, and intervention by lifestyle modification may be beneficial. HgbA1c greater or equal to 6.5% is considered diagnostic of diabetes. Performed By: #### 5 7021-8, 15456-2 ####[facility] LABCLIA [id number] [address] [place] Iron and Iron binding capaci ty panelon 11-09-2021 Iron [Mass/Vol] 44 ug/dL Normal 41-186 [facility] Comment on above: Order Comment: Lucilai men Type: BLOOD SPECIMENOrdering Facility: [facility] Address: [address] [place] [address] Performed By: #### 2 4323-8, 3040-3, 42868-2, 11151-1, 3016-3 ####[facility] LABCLIA [id number] [place] [id number] [place] Iron binding capacity [Mass/Vol] 139 ug/dL Low 232-386 [facility] Comment on above: Order Comment: Speci men Type: BLOOD SPECIMENOrdering Facility: [facility] Address: [address] [place] [address] Performed By: #### 2 4323-8, 3040-3, 74412-8, 29160-5, 3016-3 ####[facility] LABIA [id number] [place] [address] [place] Iron/TIBC [Molar ratio] 31.7 % Normal 15.0-57.0 [facility] Comment on above: Order Comment: Speci men Type: BLOOD SPECIMENOrdering Facility: [facility] Address: [address] [place] [address] Performed By: #### 2 4323-8, 3040-3, 52778-9, 42297-8, 3016-3 ####[facility] LABIA [id number] [place] [address] [place] Lipase SerPl-cCncon 11-10-19 Lipase [Catalytic activity/Vol] 13 U/L Low 16-61 [facility] Comment on above: Order Comment: Speci men Type: BLOOD SPECIMENOrdering Facility: [facility] Address: [address] [place] [address] Performed By: #### 2 4323-8, 3040-3, 64602-8, 83653-6, 3016-3 ####[facility] LABIA [id number] [place] [address] [place] Magnesium SerPl-mCncon 11-09 Magnesium [Mass/Vol] 2.0 mg/dL Normal 1.7-2.3 [facility] Comment on above: Order Comment: Speci men Type: BLOOD SPECIMENOrdering Facility: [facility] Address: [address] [place] [address] Performed By: #### 2 4323-8, 3040-3, 81061-7, 58471-4, 3016-3 ####[facility] LABIA [id number] [place] [address] [place] SARS-CoV-2 RNA Resp Ql SHELLY+p robeon 11-09-2021 SARS-CoV-2 (COVID-19) RNA SHELLY+probe Ql (Resp) COVID 19 RESULT: SARS-CoV-2 (Agent of COVID-19) Not Detected by RT-PCR or equivalent method. This test has been authorized by FDA under an Emergency Use Authorization (EUA). Normal [facility] Comment on above: Performed By: #### 9 4500-6 ####[facility] [id number] [place] [address] [place] TROPONIN Ton 11-09-2021 Troponin T.cardiac [Mass/Vol] 0.011 ug/L Normal 0.000-0.029 [facility] Comment on above: Order Comment: Speci men Type: BLOOD SPECIMENOrdering Facility: [facility] Address: [address] [place] [address] Performed By: #### T NT ####[facility] [id number] [place] [address] [place] TSH SerPl-aCncon 11-09-2021 TSH Qn 0.548 m[IU]/L Normal 0.270-4.200 [facility] Comment on above: Order Comment: Speci men Type: BLOOD SPECIMENOrdering Facility: [facility] Address: [address] [place] [address] Performed By: #### 2 4323-8, 3040-3, 77402-2, 01280-2, 3016-3 ####[facility] LABIA [id number] [place] [id number] [place] Echocardiogramon 11-04-2021 Echocardiography [facility] anayeli [address] [place] [address], [address], [place] [address] TRANSTHORACIC ECHOCARDIOGRAM REPORT Patient Name: FRANKI Maki Physician: [id number] Glenn HERNANDEZ MD Study Date: 11/04/2021 Referring Physician: [id number] LAURO COLLINS MRN/PID: [id number] PCP: Micheal Gutiérrez Accession/Order#: [id number] Department Location: [facility] Date of : 1940 Fellow: Gender: M Nurse: Admit Date: Creative Perfumer: Zeenat Trejo RDCS, T Height: 180.34 cm CC Report to: Weight: 68.04 kg Study Type: Echocardiogram BSA: 1.87 m2 Blood Pressure: 142 /70 mmHg Diagnosis/ICD: R07.89-Other chest pain; I25.5-Ischemic cardiomyopathy Indication: Hyperlipidemia, CAD, PA and PTCA-06/2021, CHF, COPD, Tobacco Abuse, Peripheral Vascular Disease, Right SFA Stent Procedure/CPT: Echo Complete w Full [id number] Study Detail: The following Echo studies were [...] 1.3 m/s (0.6-0.9m/s) PV Max P.7 mmHg [id number] Glenn Kapoor MD Electronically signed on 11/05/2021 at 9:06:54 AM Final Normal [facility] VASC LAB PVR W/O EXERCISEon 11-04-2021 VASC LAB PVR W/O EXERCISE [address], [address] [place] [address] Vascular Lab Report PVR With Out Exercise Patient Name: FRANKI Glynn Physician: [id number] Saige Bassett MD, [facility] Study Date: 11/04/2021 Referring [id number] LAURO COLLINS Physician: MRN/PID: [id number] PCP: Micehal Gutiérrez Accession/Order#: [id number] CC Report to: Date of : 1940 Technologist: Zeenat Trejo RDCS [facility] Gender: M Technologist 2: Admission Status: Outpatient Location Performed: [facility] Diagnosis/ICD: I73.9-Peripheral vascular disease, unspecified Indication: Hyperlipidemia, CAD, PA and PTCA-06/2021, Chest Discomfort, CHF, COPD, Tobacco Abuse, Right SFA Stent Procedure/CPT: 55833 Peripheral artery PVR (multi segmental pressure)-54670 CONCLUSIONS: Right Lower PVR: There is evidence [...] Left Brachial Pressure 138 mmHg 132 mmHg [id number] Saige Bassett MD, FACC Final Normal [facility] VAS LAB PVR W/O EXERCISE -[facility] Heart-Sandu marika 250 DO Work Phone: GI PANEL (PCR)on 10-28-2021 Adenovirus F 40/41 Not detected Normal NOT DETECTED [facility] Comment on above: Performed By: #### G IPANEL ####[facility] Cpphlxsegy64[address] [place], [place] [address]Dr. Villa Yanes Astrovirus Not detected Normal NOT DETECTED [facility] Comment on above: Performed By: #### G IPANEL ####[facility] Haevrljakf8206[address] [place], [place] [address]Dr. Villa Yanes C. Diff toxin A/B Not detected Normal NOT DETECTED [facility] Comment on above: Performed By: #### G IPANEL ####[facility] Sskfaabawr[address] [place], [place] [address]Dr. Villa Yanes Campylobacter Not detected Normal NOT DETECTED [facility] Comment on above: Performed By: #### G IPANEL ####[facility] Gmufuiznwj9694[address] [place], [place] [address]Dr. Villa Yanes Cryptosporidium Not detected Normal NOT DETECTED [facility] Comment on above: Performed By: #### G IPANEL ####[facility] Isztrtnppk3850[address] [place], [place] [address]Dr. Villa Yanes Cyclos. Cayetanensis Not detected Normal NOT DETECTED [facility] Comment on above: Performed By: #### G IPANEL ####[facility] Ayvkncudww3214[address] [place], [place] [address]Dr. karen Yanes E. Coli O157 Not Applicable Normal Not Applicable [facility] Comment on above: Performed By: #### G IPANEL ####[facility] Bcomplbkhu465[address] [place], [place] [address]Dr. Brooklynkaren Yanes E. histolytica Not detected Normal NOT DETECTED [facility] Comment on above: Performed By: #### G IPANEL ####[facility] Yskqcoilnh5569[address] [place], [place] [address]Dr. [facility] EAEC Not detected Normal NOT DETECTED [facility] Comment on above: Performed By: #### G IPANEL ####[facility] Lasumlfolt342[address] [place], [place] [address]Dr. [facility] EIEC Not detected Normal NOT DETECTED [facility] Comment on above: Performed By: #### G IPANEL ####[facility] Bwrdvywxia7206[address] [place], [place] [address]Dr. Brooklynkaren [facility] EPEC Not detected Normal NOT DETECTED [facility] Comment on above: Performed By: #### G IPANEL ####[facility] Tomnlfeycg8265[address] [place], [place] [address]Dr. karen Yanes ETEC Not detected Normal NOT DETECTED [facility] Comment on above: Performed By: #### G IPANEL ####[facility] Ftsytckovf1540[address] [place], [place] [address]Dr. Villa Yanes G. Lamblia Not detected Normal NOT DETECTED [facility] Comment on above: Performed By: #### G IPANEL ####[facility] Nudkttcekt6824[address] [place], [place] [address]Dr. Villa Yanes GIPANEL CONTROLS PASSED Normal [facility] Comment on above: Performed By: #### G IPANEL ####[facility] Edakfjvedc8870[address] [place], [place] [address]Dr. Villa Yanes GIPNL MASSIMO HEADER GI PANEL BACTERIA Normal [facility] Comment on above: Performed By: #### G IPANEL ####[facility] Lhtotfaeky709[address] [place], [place] [address]Dr. Villa Yanes [facility] ECOLI GI PANEL DIARRHEAGEN IC E.COLI / SHIGELLA Normal [facility] Comment on above: Performed By: #### G IPANEL ####[facility] Mdlcahaltv8301[address] [place], [place] [address]Dr. Villa Yanes [facility] INFO SEE BELOW Normal [facility] Comment on above: Result Comment: EAEC - Enteroaggregative E. Coli EPEC- Enteropathogenic E. Coli ETEC- Enterotoxigenic E. Coli lt/st STEC- Shigella-like toxin-producing E. Coli stx1/stx2 EIEC- Shigella/Enteroinvasive E. Coli Performed By: #### G IPANEL ####[facility] Wwdydppzdh8058[address] [place], [place] [address]Dr. Villa Yanes GIPNLHD PARASITES GI PANEL PARASITES Normal [facility] Comment on above: Performed By: #### G IPANEL ####[facility] Nvczsmlmfe1239[address] [place], [place] [address]Dr. Villa Yanes [facility] VIRUS GI PANEL VIRUSES Normal [facility] Comment on above: Performed By: #### G IPANEL ####[facility] Irdjetdidr947436 [address] [place], [place] [address]Dr. Villa Yanes Norovirus GI/GII Not detected Normal NOT DETECTED [facility] Comment on above: Performed By: #### G IPANEL ####[facility] Nlzospptzj7555[address] [place], [place] [address]Dr. Villa Yanes P. Shigelloides Not detected Normal NOT DETECTED [facility] Comment on above: Performed By: #### G IPANEL ####[facility] Xdiwlaswhh037[address] [place], [place] [address]Dr. Villa Yanes Rotavirus A Not detected Normal NOT DETECTED [facility] Comment on above: Performed By: #### G IPANEL ####[facility] Hbvajjpghj916936 [address] [place], [place] [address]Dr. Villa Yanes Salmonella Not detected Normal NOT DETECTED [facility] Comment on above: Performed By: #### G IPANEL ####[facility] Dhptrijjez1824[address] [place], [place] [id number]. Villa Yanes Sapovirus Not detected Normal NOT DETECTED [facility] Comment on above: Performed By: #### G IPANEL ####[facility] Nojxwanwzt4459[address] [place], [place] [address]Dr. Villa Yanes STEC Not detected Normal NOT DETECTED [facility] Comment on above: Performed By: #### G IPANEL ####[facility] Fxkxnsxthc5[address] [place], [place] [address]Dr. Villa Yanes Vibrio Not detected Normal NOT DETECTED [facility] Comment on above: Performed By: #### G IPANEL ####[facility] Tfruunfiex104[address] [place], [place] [address]Dr. Villa Yanes Vibrio Cholera Not detected Normal NOT DETECTED [facility] Comment on above: Performed By: #### G IPANEL ####[facility] Npoomsstjg3476[address] [place], [place] [address]Dr. Villa Yanes Y. Enterocolitica Not detected Normal NOT DETECTED [facility] Comment on above: Performed By: #### G IPANEL ####[facility] Sgfpjriemo9009[address] [place], [place] [address]Dr. Villa Joaquín BNPon 10-13-2021 Natriuretic peptide B (Bld) [Mass/Vol] 2844.0 pg/mL Critically high <=1,800.0 [facility] Comment on above: Result Comment: Test Repeated Critical Value Verified Performed By: #### C MP, BNP ####[facility] Gofizgbimz4376[address] [place], [place] [address]Dr. Brooklynkaren Yanes CBC AUTO DIFFon 10-13-2021 BASO # 0.1 103/ul Normal 0.0-0.1 [facility] Comment on above: Performed By: #### C BC ####[facility] Golnotpivv2727[address] [place], [place] [address]Dr. Villa Yanes Basophils/100 WBC (Bld) 0.8 % Normal 0.2-2.0 [facility] Comment on above: Performed By: #### C BC ####[facility] Hgxnrsybze3155[address] [place], [place] [address]Dr. Villa Yanes EO # 0.9 103/ul Critically high 0.0-0.7 [facility] Comment on above: Performed By: #### C BC ####[facility] Yfe[address] [place] [address]Dr. Villa Yanes Eosinophils/100 WBC (Bld) 7.8 % Critically high 0.9-7.0 [facility] Comment on above: Performed By: #### C BC ####[facility] Xdfrahridc459[address] [place], [place] [address]Dr. Villa Yanes Erythrocyte distribution width (RBC) [Ratio] 13.1 % Normal 11.0-15.0 [facility] Comment on above: Performed By: #### C BC ####[facility] Rdfhzwwivx846[address] [place], [place] [address]Dr. Villa Yanes Hematocrit (Bld) [Volume fraction] 29.3 % Critically low 42.0-54.0 [facility] Comment on above: Performed By: #### C BC ####[facility] Zmecktfxrc9766[address] [place], [place] [address]Dr. Villa Yanes Hemoglobin (Bld) [Mass/Vol] 9.3 g/dL Critically low 14.0-18.0 [facility] Comment on above: Performed By: #### C BC ####[facility] Nrfjcwbocl068[address] [place], [place] [address]Dr. Villa Joaquín IG # 0.18 10e3/ul Critically high 0.00-0.03 [facility] Comment on above: Performed By: #### C BC ####[facility] Wamdvsqbjy2684[address] [place], [place] [address]Dr. Villa Joaquín IG % 1.5 % Critically high 0.0-0.5 [facility] Comment on above: Performed By: #### C BC ####[facility] Dmmqowvuif505[address] [place], [place] [address]Dr. Brooklynkaren Joaquín LYMPH # 1.7 103/ul Normal 1.2-3.8 [facility] Comment on above: Performed By: #### C BC ####[facility] Ylzarpkars9529[address] [place], [place] [address]Dr. Villa Yanes Lymphocytes/100 WBC (Bld) 14.7 % Critically low 20.5-60.0 [facility] Comment on above: Performed By: #### C BC ####[facility] E[address] [place] [address]DrBrenden Yanes MANUAL DIFF REQ NO Normal [facility] Comment on above: Performed By: #### C BC ####[facility] Hepkeqseek7[address] [place] [address]Dr. Villa Yanes MCH (RBC) [Entitic mass] 30.1 pg Normal 25.9-34.0 [facility] Comment on above: Performed By: #### C BC ####[facility] Syrellgopt[address] [place] [address]Dr. Villa Yanes MCHC (RBC) [Mass/Vol] 31.7 g/dL Normal 29.9-35.2 [facility] Comment on above: Performed By: #### C BC ####[facility] Eaypqbljqg2540[address] [place], [place] [address]DrBrenden Yanes MCV (RBC) [Entitic vol] 94.8 fL Critically high 80.0-94.0 [facility] Comment on above: Performed By: #### C BC ####[facility] Fojlqhxwtf4[address] [place], [place] [address]Dr. Villa Yanes MONO # 0.7 103/ul Normal 0.3-0.8 [facility] Comment on above: Performed By: #### C BC ####[facility] Ufmrboxlct2514[address] [place], [place] [address]DrBrenden Yanes Monocytes/100 WBC (Bld) 6.1 % Normal 1.7-12.0 [facility] Comment on above: Performed By: #### C BC ####[facility] Pjxjyzszuh3415[address] [place], [place] [address]DrBrenden Yanes NEUT # 8.1 103/ul Critically high 1.4-6.5 [facility] Comment on above: Performed By: #### C BC ####[facility] Ebyvpsldsz0086[address] [place], [place] [address]DrBrenden Yanes Neutrophils/100 WBC (Bld) 69.1 % Normal 43.0-75.0 [facility] Comment on above: Performed By: #### C BC ####[facility] [address]ks[address] [place] [address]Dr. Villa Yanes Platelet mean volume (Bld) [Entitic vol] 9.7 fL Normal 9.5-13.5 [facility] Comment on above: Performed By: #### C BC ####[facility] Qjvvkvfeps1451 [place] [address]Dr. Villa Yanes PLT 408 103/ul Normal 150-450 [facility] Comment on above: Performed By: #### C BC ####[facility] Vxpebiislm7316 [place] [address]Dr. Villa Yanes RBC 3.09 106/ul Critically low 4.70-6.10 [facility] Comment on above: Performed By: #### C BC ####[facility] Ixwfkllkee34[address] [place] [address]Dr. Villa Yanes WBC 11.7 103/ul Critically high 4.0-11.0 [facility] Comment on above: Performed By: #### C BC ####[facility] Bolxxkczqx6066[address] [place], [place] [address]Dr. Villa Yanes POINT OF CARE GLUCOSEon 09-22 Glucose [Mass/Vol] 216 mg/dL Critically high 74-106 [facility] Comment on above: Performed By: #### P OCGLUC ####[facility] Ficxvnbbnp99[address] [place] [address]Dr. Villa Yanes Glucose [Mass/Vol] 217 mg/dL Critically high 74-106 [facility] Comment on above: Performed By: #### P OCGLUC ####[facility] Bwohfbahts5520[address] [place], [place] [address]DrBrenden Villa Yanes PROF 14(COMP METB)on 022 Albumin [Mass/Vol] 2.0 g/dL Critically low 3.4-5.0 [facility] Comment on above: Performed By: #### C MP, BNP ####[facility] Ug[address]vxlltpw95[address] [place] [id number]. Villa Yanes Albumin/Globulin [Mass ratio] 0.5 {ratio} Normal [facility] Comment on above: Performed By: #### C MP, BNP ####[facility] Cdw[address]dozrlq83[address] [place] [id number]. Villa Joaquín ALP [Catalytic activity/Vol] 122 U/L Critically high 46-116 [facility] Comment on above: Performed By: #### C MP, BNP ####[facility] Nnvhljmlpr0946 [place] [id number]. Villa Joaquín ALT [Catalytic activity/Vol] 12 U/L Critically low 16-63 [facility] Comment on above: Performed By: #### C MP, BNP ####[facility] Xakbonjokf[address]199 [place] [address]Dr. Villa Yanes Anion gap [Moles/Vol] 11.6 mmol/L Normal [facility] Comment on above: Performed By: #### C MP, BNP ####[facility] Wpzsgojwwt6793 [place] [address]Dr. Brooklynkaren Yanes AST [Catalytic activity/Vol] 7 U/L Critically low 15-37 [facility] Comment on above: Performed By: #### C MP, BNP ####[facility] Kgfakiiddc06[address] [place] [address]Dr. Villa Yanes Bilirubin [Mass/Vol] 0.1 mg/dL Critically low 0.2-1.0 [facility] Comment on above: Performed By: #### C MP, BNP ####[facility] Tqvrsexrrf039[address] [place] [id number]. Villa Yanes Calcium [Mass/Vol] 8.3 mg/dL Critically low 8.5-10.1 [facility] Comment on above: Performed By: #### C MP, BNP ####[facility] Zbjtmkwkgs6480 [place] [id number]. Villa Yanes Chloride [Moles/Vol] 100 mmol/L Normal 98-107 [facility] Comment on above: Performed By: #### C MP, BNP ####[facility] Zlwebfgyvc7452 [place] [address]Dr. Villa Yanes CO2 [Moles/Vol] 28.5 mmol/L Normal 21.0-32.0 [facility] Comment on above: Performed By: #### C MP, BNP ####[facility] Jipzqgdpzl3364 [place] [address]Dr. Villa Yanes Creatinine [Mass/Vol] 1.13 mg/dL Normal 0.70-1.30 [facility] Comment on above: Performed By: #### C MP, BNP ####[facility] Ixytetdpts12[address] [place], [place] [address]Dr. Villa Yanes EGFR-AF MARTINIQUAIS >60 Normal >=60 [facility] Comment on above: Performed By: #### C MP, BNP ####[facility] Mposbnjdak8216[address] [place], [place] [address]Dr. Villa Yanes EGFR-NON AF MARTINIQUAIS >60 Normal >=60 [facility] Comment on above: Performed By: #### C MP, BNP ####[facility] Bztzadaqnv39[address] [place] [address]Dr. Villa Yanes Globulin (S) [Mass/Vol] 3.7 g/dL Normal [facility] Comment on above: Performed By: #### C MP, BNP ####[facility] Jgyjlwjlnk3773 [place] [address]Dr. Villa Yanes Glucose [Mass/Vol] 241 mg/dL Critically high 74-106 [facility] Comment on above: Performed By: #### C MP, BNP ####[facility] Xbhrdnuigz1542 [place] [address]Dr. Villa Yanes Potassium [Moles/Vol] 4.1 mmol/L Normal 3.5-5.1 [facility] Comment on above: Performed By: #### C MP, BNP ####[facility] Fwhdqbxxkr8330[address] [place], [place] [address]Dr. Villa Yanes Protein [Mass/Vol] 5.7 g/dL Critically low 6.4-8.2 [facility] Comment on above: Performed By: #### C MP, BNP ####[facility] Neiwzkmhgv9312[address] [place], [place] [address]Dr. Villa Yanes Sodium [Moles/Vol] 136 mmol/L Normal 136-145 [facility] Comment on above: Performed By: #### C MP, BNP ####[facility] Mzaoghqiaf8[address] [place], [place] [address]Dr. Villa Joaquín Urea nitrogen [Mass/Vol] 29.0 mg/dL Critically high 7.0-18.0 [facility] Comment on above: Performed By: #### C MP, BNP ####[facility] Xrpyaetdaf37[address] [place], [place] [address]Dr. Brooklynkaren Yanes Urea nitrogen/Creatinine [Mass ratio] 25.7 mg/mg Normal [facility] Comment on above: Performed By: #### C MP, BNP ####[facility] Npviwfbnvu6118[address] [place], [place] [address]Dr. Villa Joaquín BNPon 10-12-2021 Natriuretic peptide B (Bld) [Mass/Vol] 4274.0 pg/mL Critically high <=1,800.0 [facility] Comment on above: Result Comment: Test Repeated. Critical Value Verified Performed By: #### B IT OPERATIONS ANALYST, CMP ####[facility] Jkvadsfgsf8748[address] [place], [place] [address]Dr. Villa Joaquín CBC AUTO DIFFon 10-12-2021 BASO # 0.1 103/ul Normal 0.0-0.1 [facility] Comment on above: Performed By: #### C BC ####[facility] Jdgzqgjlqg4[address] [place], [place] [address]Dr. Villa Yanes Basophils/100 WBC (Bld) 0.6 % Normal 0.2-2.0 [facility] Comment on above: Performed By: #### C BC ####[facility] Eocampvnnc7420[address] [place], [place] [address]Dr. Villa Yanes EO # 0.6 103/ul Normal 0.0-0.7 [facility] Comment on above: Performed By: #### C BC ####[facility] Isiyylvbvc[address] [place], [place] [address]Dr. Villa Yanes Eosinophils/100 WBC (Bld) 4.2 % Normal 0.9-7.0 [facility] Comment on above: Performed By: #### C BC ####[facility] Xternzaoyw2[address] [place] [address]Dr. Villa Yanes Erythrocyte distribution width (RBC) [Ratio] 12.9 % Normal 11.0-15.0 [facility] Comment on above: Performed By: #### C BC ####[facility] Iqwsahdmbz1446[address] [place], [place] [address]Dr. Villa Yanes Hematocrit (Bld) [Volume fraction] 31.5 % Critically low 42.0-54.0 [facility] Comment on above: Performed By: #### C BC ####[facility] Hgonbwibjn[address] [place], [place] [address]Dr. Villa Yanes Hemoglobin (Bld) [Mass/Vol] 9.9 g/dL Critically low 14.0-18.0 [facility] Comment on above: Performed By: #### C BC ####[facility] Phnlkzocqa[address] [place], [place] [address]Dr. Villa Yanes IG # 0.10 10e3/ul Critically high 0.00-0.03 [facility] Comment on above: Performed By: #### C BC ####[facility] Cwkltcqcfp8[address] [place], [place] [address]Dr. Villa Yanes IG % 0.7 % Critically high 0.0-0.5 [facility] Comment on above: Performed By: #### C BC ####[facility] Xkprgpghay18[address] [place], [place] [address]Dr. Villa Yanes LYMPH # 1.9 103/ul Normal 1.2-3.8 [facility] Comment on above: Performed By: #### C BC ####[facility] Aqciyuffjm[address] [place], [place] [address]Dr. Villa Yanes Lymphocytes/100 WBC (Bld) 13.2 % Critically low 20.5-60.0 [facility] Comment on above: Performed By: #### C BC ####[facility] [address]xeqcud3[address] [place] [id number]. Villa Yanes MANUAL DIFF REQ NO Normal [facility] Comment on above: Performed By: #### C BC ####[facility] Lncvvnxvvz[address] [place] [id number]. Villa Yanes MCH (RBC) [Entitic mass] 30.1 pg Normal 25.9-34.0 [facility] Comment on above: Performed By: #### C BC ####[facility] Hhafapkatg6[address] [place] [address]Dr. Villa Yanes MCHC (RBC) [Mass/Vol] 31.4 g/dL Normal 29.9-35.2 [facility] Comment on above: Performed By: #### C BC ####[facility] Easafpphta1793 [place] [address]Dr. Villa Yanes MCV (RBC) [Entitic vol] 95.7 fL Critically high 80.0-94.0 [facility] Comment on above: Performed By: #### C BC ####[facility] [address]jwvctsfqp[address] [place], [place] [address]Dr. Villa Joaquín MONO # 0.8 103/ul Normal 0.3-0.8 [facility] Comment on above: Performed By: #### C BC ####[facility] Bffadhmjvc0399 [place] [address]Dr. Villa Joaquín Monocytes/100 WBC (Bld) 5.3 % Normal 1.7-12.0 [facility] Comment on above: Performed By: #### C BC ####[facility] Boyoqphkoi[address] [place] [address]Dr. Villa Yanes NEUT # 10.9 103/ul Critically high 1.4-6.5 [facility] Comment on above: Performed By: #### C BC ####[facility] Xsfmjhibss[address] [place], [place] [address]Dr. Brooklynkaren Yanes Neutrophils/100 WBC (Bld) 76.0 % Critically high 43.0-75.0 [facility] Comment on above: Performed By: #### C BC ####[facility] Wjvgocamqs9319 [place] [id number]. Villa Yanes Platelet mean volume (Bld) [Entitic vol] 9.6 fL Normal 9.5-13.5 [facility] Comment on above: Performed By: #### C BC ####[facility] [address]yekgrekzz13[address] [place] [id number]. Villa Yanes PLT 372 103/ul Normal 150-450 [facility] Comment on above: Performed By: #### C BC ####[facility] Leqemvtrsj2140 [place] [address]Dr. Villa Yanes RBC 3.29 106/ul Critically low 4.70-6.10 [facility] Comment on above: Performed By: #### C BC ####[facility] Wdjymobwbm4552 [place] [address]Dr. Villa Yanes WBC 14.3 103/ul Critically high 4.0-11.0 [facility] Comment on above: Performed By: #### C BC ####[facility] Wnsgpovrxt5[address] [place] [address]Dr. Villa Yanes POINT OF CARE GLUCOSEon 09-22 Glucose [Mass/Vol] 196 mg/dL Critically high 74-106 [facility] Comment on above: Performed By: #### P OCGLUC ####[facility] Hvfoqvusga8[address] [place] [address]Dr. Villa Yanes Glucose [Mass/Vol] 222 mg/dL Critically high 74-106 [facility] Comment on above: Performed By: #### P OCGLUC ####[facility] Xzpykobxfm9339 [place] [address]Dr. Villa Yanes Glucose [Mass/Vol] 215 mg/dL Critically high 74-106 [facility] Comment on above: Performed By: #### P OCGLUC ####[facility] Mofhzalyjp7062 [place] [address]Dr. Villa Yanes Glucose [Mass/Vol] 224 mg/dL Critically high -106 [facility] Comment on above: Performed By: #### P OCGLUC ####[facility] Hovpimaxfs6249 [place] [address]Dr. Villa Yanes PROF 14(COMP METB)on 022 Albumin [Mass/Vol] 2.1 g/dL Critically low 3.4-5.0 [facility] Comment on above: Performed By: #### B IT OPERATIONS ANALYST, CMP ####[facility] Ptmmimlkrf9064 [place] [address]Dr. Villa Yanes Albumin/Globulin [Mass ratio] 0.5 {ratio} Normal [facility] Comment on above: Performed By: #### B IT OPERATIONS ANALYST, CMP ####[facility] Dsfztvqgud85[address] [place] [address]Dr. Villa Yanes ALP [Catalytic activity/Vol] 127 U/L Critically high 46-116 [facility] Comment on above: Performed By: #### B IT OPERATIONS ANALYST, CMP ####[facility] Uzyojnrzln18[address] [place], [place] [address]Dr. Villa Yanes ALT [Catalytic activity/Vol] 12 U/L Critically low 16-63 [facility] Comment on above: Performed By: #### B IT OPERATIONS ANALYST, CMP ####[facility] Qyvnvkbvkt1786 [place] [address]Dr. Villa Yanes Anion gap [Moles/Vol] 11.4 mmol/L Normal [facility] Comment on above: Performed By: #### B IT OPERATIONS ANALYST, CMP ####[facility] Ndpvrzcfnj6[address] [place], [place] [address]Dr. Villa Yanes AST [Catalytic activity/Vol] 13 U/L Critically low 15-37 [facility] Comment on above: Performed By: #### B IT OPERATIONS ANALYST, CMP ####[facility] Trrzqzekzr[address] [place], [place] [address]Dr. Villa Yanes Bilirubin [Mass/Vol] 0.1 mg/dL Critically low 0.2-1.0 [facility] Comment on above: Performed By: #### B IT OPERATIONS ANALYST, CMP ####[facility] Bjllqgrzpm06[address] [place], [place] [address]Dr. Villa Yanes Calcium [Mass/Vol] 8.8 mg/dL Normal 8.5-10.1 [facility] Comment on above: Performed By: #### B IT OPERATIONS ANALYST, CMP ####[facility] Ntvxsbqmpw2751 [place] [address]Dr. Villa Yanes Chloride [Moles/Vol] 103 mmol/L Normal 98-107 [facility] Comment on above: Performed By: #### B IT OPERATIONS ANALYST, CMP ####[facility] Lteeksyzok2685 [place] [address]Dr. Villa Yanes CO2 [Moles/Vol] 28.4 mmol/L Normal 21.0-32.0 [facility] Comment on above: Performed By: #### B IT OPERATIONS ANALYST, CMP ####[facility] Giqsixobtk8[address] [place], [place] [address]Dr. Villa Yanes Creatinine [Mass/Vol] 1.13 mg/dL Normal 0.70-1.30 [facility] Comment on above: Performed By: #### B IT OPERATIONS ANALYST, CMP ####[facility] Vdpxupdrzn16[address] [place], [place] [address]Dr. Villa Yanes EGFR-AF MARTINIQUAIS >60 Normal >=60 [facility] Comment on above: Performed By: #### B IT OPERATIONS ANALYST, CMP ####[facility] Fzxznmtcda29[address] [place], [place] [address]Dr. Villa Yanes EGFR-NON AF MARTINIQUAIS >60 Normal >=60 [facility] Comment on above: Performed By: #### B IT OPERATIONS ANALYST, CMP ####[facility] Ppwnkhvrdn04[address] [place], [place] [address]Dr. Vlila Yanes Globulin (S) [Mass/Vol] 3.9 g/dL Normal [facility] Comment on above: Performed By: #### B IT OPERATIONS ANALYST, CMP ####[facility] Ppjrzcjjcc0825 [place] [address]Dr. Villa Yanes Glucose [Mass/Vol] 151 mg/dL Critically high 74-106 [facility] Comment on above: Performed By: #### B IT OPERATIONS ANALYST, CMP ####[facility] Uvnrwcdyaa44[address] [place], [place] [address]Dr. Villa Yanes Potassium [Moles/Vol] 3.8 mmol/L Normal 3.5-5.1 [facility] Comment on above: Performed By: #### B IT OPERATIONS ANALYST, CMP ####[facility] Jazkyhajdj5982 [place] [address]Dr. Brooklynkaren Yanes Protein [Mass/Vol] 6.0 g/dL Critically low 6.4-8.2 [facility] Comment on above: Performed By: #### B IT OPERATIONS ANALYST, CMP ####[facility] Qmlyenhsog393[address] [place], [place] [address]Dr. Villa Yanes Sodium [Moles/Vol] 139 mmol/L Normal 136-145 [facility] Comment on above: Performed By: #### B IT OPERATIONS ANALYST, CMP ####[facility] Adreazbors63[address] [place], [place] [address]Dr. Villa Yanes Urea nitrogen [Mass/Vol] 28.0 mg/dL Critically high 7.0-18.0 [facility] Comment on above: Performed By: #### B IT OPERATIONS ANALYST, CMP ####[facility] Vujybikjep[address] [place], [place] [address]Dr. Villa Yanes Urea nitrogen/Creatinine [Mass ratio] 24.8 mg/mg Normal [facility] Comment on above: Performed By: #### B IT OPERATIONS ANALYST, CMP ####[facility] Euyjbpltzr4[address] [place], [place] [address]Dr. Brooklynkaren Joaquín BNPon 10-11-2021 Natriuretic peptide B (Bld) [Mass/Vol] 1770.0 pg/mL Normal <=1,800.0 [facility] Comment on above: Performed By: #### C MP, BNP ####[facility] Ktfedfoose[address] [place], [place] [address]Dr. Villa Yanes CBC W MANUAL DIFFon 10-12-19 22 ATYPICAL LYMPH # Normal [facility] Comment on above: Performed By: #### C BCMAN ####[facility] Wbjmixoybf7[address] [place], [place] [address]Dr. Villa Yanes ATYPICAL LYMPH % Normal [facility] Comment on above: Performed By: #### C BCMAN ####[facility] Ywlphbyfhk[address] [place], [place] [address]Dr. Villa Yanes BAND # 0.3 103/ul Normal 0.0-0.3 [facility] Comment on above: Performed By: #### C BCMAN ####[facility] Wcniumzokv7566 [place] [address]Dr. Villa Yanes BAND % 2 % Normal 0-5 [facility] Comment on above: Performed By: #### C BCMAN ####[facility] Zqrqgfshsn18[address] [place] [id number]. Yikaren Yanes BASOM # 0.00 103/ul Normal 0.00-0.10 [facility] Comment on above: Performed By: #### C BCMAN ####[facility] Dnairfgcna5780 [place] [address]Dr. Villa Yanes BASOM % 0.0 % Critically low 0.2-2.0 [facility] Comment on above: Performed By: #### C BCMARLENA ####[facility] Ihipqrlpga[address] [place], [place] [address]Dr. Villa Yanes BLAST # Normal [facility] Comment on above: Performed By: #### C BCMARLENA ####[facility] Cmxeifdzdh[address] [place], [place] [address]Dr. Villa Yanes BLAST % Normal [facility] Comment on above: Performed By: #### C BCMARLENA ####[facility] Unrvycujqv9[address] [place], [place] [address]Dr. Villa Yanes CORRECTED WBC Normal 4.0-11.0 [facility] Comment on above: Performed By: #### C BCMARLENA ####[facility] Trfbebzoyz[address] [place], [place] [address]Dr. Yikaren Yanes EOS # 0.00 103/ul Normal 0.00-0.70 [facility] Comment on above: Performed By: #### C BCMARLENA ####[facility] Pmcbliqbzi[address] [place], [place] [address]Dr. Villa Yanes EOS% 0.0 % Critically low 0.9-7.0 [facility] Comment on above: Performed By: #### C BCMAN ####[facility] Pcpbpywhzp[address] [place], [place] [address]Dr. Villa Yanes HCT 28.9 % Critically low 42.0-54.0 [facility] Comment on above: Performed By: #### C ESTEFANIA ####[facility] Ngcihalrvh[address] [place] [id number]. Villa Yanes HGB 9.0 g/dl Critically low 14.0-18.0 [facility] Comment on above: Performed By: #### C ESTEFANIA ####[facility] Mmjkavpgyu82[address] [place] [id number]. Villa Yanes LYMPHM # 0.77 103/ul Critically low 1.20-3.80 [facility] Comment on above: Performed By: #### C ESTEFANIA ####[facility] Adonfredbt[address] [place] [id number]. Villa Yanes LYMPHM% 5.0 % Critically low 20.5-60.0 [facility] Comment on above: Performed By: #### C ESTEFANIA ####[facility] Cseswoiovu5[address] [place] [phone]. Villa Yanes MCH 29.7 pg Normal 25.9-34.0 [facility] Comment on above: Performed By: #### C ESTEFANIA ####[facility] Gkpltkujnb3426 [place] [phone]. Villa Yanes MCHC 31.1 g/dl Normal 29.9-35.2 [facility] Comment on above: Performed By: #### C ESTEFANIA ####[facility] Cgrmkjkpiw8896 [place] [phone]. Villa Yanes MCV 95.4 fL Critically high 80.0-94.0 [facility] Comment on above: Performed By: #### C BCMARLENA ####[facility] Qcebnsdneg4063 [place], [place] [address]Gb. Villa Yanes METAMYELOCYTE # Normal [facility] Comment on above: Performed By: #### C BCMARLENA ####[facility] Aywmpiuerp5498 [place], [place] [address]Ns. Villa Yanes METAMYELOCYTE % Normal [facility] Comment on above: Performed By: #### C BCMARLENA ####[facility] Tbatfdzozu80[address] [place] [phone]. Villa Yanes MONOM# 0.46 103/ul Normal 0.30-0.80 [facility] Comment on above: Performed By: #### C ESTEFANIA ####[facility] Zvsnpuetgn3207 [place] [phone]. Villa Yanes MONOM% 3.0 % Normal 1.7-12.0 [facility] Comment on above: Performed By: #### C ESTEFANIA ####[facility] Mgetssdrvu8288 [place] [id number]. Villa Yanes MPV 10.1 fL Normal 9.5-13.5 [facility] Comment on above: Performed By: #### Awilda MAC ####[facility] Wsfvnernhn[address] [place], [place] [address]Dr. Villa Yanes MYELOCYTE # Normal [facility] Comment on above: Performed By: #### Awilda MAC ####[facility] [address]wzojiw[address] [place], [place] [id number]. Villa Yanes MYELOCYTE % Normal [facility] Comment on above: Performed By: #### Awilda MAC ####[facility] Dcwfhslupv[address] [place], [place] [address]Dr. Villa Yanes NRBC Normal [facility] Comment on above: Performed By: #### Awilda MAC ####[facility] Xufcaqdwyz80[address] [place] [id number]. Villa Yanes PLT 361 103/ul Normal 150-450 [facility] Comment on above: Performed By: #### C ESTEFANIA ####[facility] Rirefbmgxb6736 [place] [phone]. Villa Yanes RBC 3.03 106/ul Critically low 4.70-6.10 [facility] Comment on above: Performed By: #### C ESTEFANIA ####[facility] Plgffdhvcb9430 [place] [phone]. Villa Yanes RDW 12.9 % Normal 11.0-15.0 [facility] Comment on above: Performed By: #### Awilda MAC ####[facility] Velvccmbsh9460 [place] [phone]. Villa Yanes SEG # 13.86 103/ul Critically high 1.40-6.50 [facility] Comment on above: Performed By: #### C BCMAN ####[facility] Awoxgcddlc1505 [place] [phone]. Villa Yanes SEG % 90.0 % Critically high 43.0-75.0 [facility] Comment on above: Performed By: #### C BCMAN ####[facility] Zojfijqnqa5350 [place] [phone]. Villa Yanes WBC 15.4 103/ul Critically high 4.0-11.0 [facility] Comment on above: Performed By: #### C BCMAN ####[facility] Uyrljeoqml0301 [place] [address]Dr. Villa Yanes POINT OF CARE GLUCOSEon 09-22 Glucose [Mass/Vol] 214 mg/dL Critically high 74-106 [facility] Comment on above: Performed By: #### P OCGLUC ####[facility] Mfahjujufo1645 [place] [address]Dr. Villa Joaquín Glucose [Mass/Vol] 185 mg/dL Critically high 74-106 [facility] Comment on above: Performed By: #### P OCGLUC ####[facility] Tcarjpilix8300 [place] [address]Dr. Villa Yanes Glucose [Mass/Vol] 224 mg/dL Critically high 74-106 [facility] Comment on above: Performed By: #### P OCGLUC ####[facility] Fibhjwzsic5034 [place] [address]Dr. Villa Yanes Glucose [Mass/Vol] 273 mg/dL Critically high 74-106 [facility] Comment on above: Performed By: #### P OCGLUC ####[facility] Lddkuecbcn[address] [place], [place] [address]Dr. Vilal Yanes PROF 14(COMP METB)on 022 Albumin [Mass/Vol] 1.9 g/dL Critically low 3.4-5.0 [facility] Comment on above: Performed By: #### C MP, BNP ####[facility] Sxycpxqhzp3656 [place] [id number]. Villa Yanes Albumin/Globulin [Mass ratio] 0.5 {ratio} Normal [facility] Comment on above: Performed By: #### C MP, BNP ####[facility] Pwkfralsup0069 [place] [address]Dr. Villa Yanes ALP [Catalytic activity/Vol] 153 U/L Critically high 46-116 [facility] Comment on above: Performed By: #### C MP, BNP ####[facility] Amiizvybmo5115 [place] [address]Dr. Villa Yanes ALT [Catalytic activity/Vol] 9 U/L Critically low 16-63 [facility] Comment on above: Performed By: #### C MP, BNP ####[facility] Hxxelzwfos2063 [place] [address]Dr. Villa Yanes Anion gap [Moles/Vol] 12.0 mmol/L Normal [facility] Comment on above: Performed By: #### C MP, BNP ####[facility] Imyfowkvje9563 [place] [address]Dr. Villa Yanes AST [Catalytic activity/Vol] 10 U/L Critically low 15-37 [facility] Comment on above: Performed By: #### C MP, BNP ####[facility] Yjtykyrubn0198 [place] [address]Dr. Villa Yanes Bilirubin [Mass/Vol] 0.1 mg/dL Critically low 0.2-1.0 [facility] Comment on above: Performed By: #### C MP, BNP ####[facility] Gvwbzixqcp8533 [place] [phone]. Villa Yanes Calcium [Mass/Vol] 8.4 mg/dL Critically low 8.5-10.1 [facility] Comment on above: Performed By: #### C MP, BNP ####[facility] Ijonrdkcjn0944 [place] [address]Dr. Villa Yanes Chloride [Moles/Vol] 100 mmol/L Normal 98-107 [facility] Comment on above: Performed By: #### C MP, BNP ####[facility] Sioxykxkui2069 [place] [address]Dr. Villa Joaquín CO2 [Moles/Vol] 27.3 mmol/L Normal 21.0-32.0 [facility] Comment on above: Performed By: #### C MP, BNP ####[facility] Eovekzplnp2578 [place] [address]Dr. Villa Yanes Creatinine [Mass/Vol] 1.40 mg/dL Critically high 0.70-1.30 [facility] Comment on above: Performed By: #### C MP, BNP ####[facility] Zbtgtgeykh12[address] [place], [place] [address]Dr. Villa Yanes EGFR-AF MARTINIQUAIS 59 mL/min/1.73m2 Critically low >=60 [facility] Comment on above: Performed By: #### C MP, BNP ####[facility] Kuqrsumtwn17[address] [place], [place] [address]Dr. Villa Yanes EGFR-NON AF MARTINIQUAIS 49 mL/min/1.73m2 Critically low >=60 [facility] Comment on above: Performed By: #### C MP, BNP ####[facility] Kwygdfhimo24[address] [place], [place] [address]Dr. Villa Yanes Globulin (S) [Mass/Vol] 4.0 g/dL Normal [facility] Comment on above: Performed By: #### C MP, BNP ####[facility] Ljhrrgkncb[address] [place], [place] [address]Dr. Villa Yanes Glucose [Mass/Vol] 353 mg/dL Critically high 74-106 [facility] Comment on above: Performed By: #### C MP, BNP ####[facility] Lpplopmojs30[address] [place], [place] [address]Dr. Villa Yanes Potassium [Moles/Vol] 4.3 mmol/L Normal 3.5-5.1 [facility] Comment on above: Performed By: #### C MP, BNP ####[facility] Egaadyupkk55[address] [place], [place] [address]Dr. Villa Yanes Protein [Mass/Vol] 5.9 g/dL Critically low 6.4-8.2 [facility] Comment on above: Performed By: #### C MP, BNP ####[facility] Mbabypaues[address] [place], [place] [address]Dr. Villa Yanes Sodium [Moles/Vol] 135 mmol/L Critically low 136-145 [facility] Comment on above: Performed By: #### C MP, BNP ####[facility] Orcxqgywbp39[address] [place], [place] [address]Dr. Villa Yanes Urea nitrogen [Mass/Vol] 39.0 mg/dL Critically high 7.0-18.0 [facility] Comment on above: Performed By: #### C MP, BNP ####[facility] Gcliacunie[address] [place], [place] [address]Dr. Villa Yanes Urea nitrogen/Creatinine [Mass ratio] 27.9 mg/mg Normal [facility] Comment on above: Performed By: #### C MP, BNP ####[facility] Nhszfeqkyt9[address] [place], [place] [address]Dr. Villa Yanes XR CHEST 2 Von 10-11-2021 XR CHEST 2 V Normal [facility] AMMONIAon 10-10-2021 Ammonia (P) [Moles/Vol] 20 umol/L Normal 11-32 [facility] Comment on above: Performed By: #### A MM ####[facility] Esypdnikdz[address] [place], [place] [address]Dr. Villa Yanes BNPon 10-10-2021 Natriuretic peptide B (Bld) [Mass/Vol] 1137.0 pg/mL Normal <=1,800.0 [facility] Comment on above: Performed By: #### C MADM, BNP ####[facility] Glnuxbxlfk8[address] [place], [place] [address]Dr. Brooklynkaren Joaquín Natriuretic peptide B (Bld) [Mass/Vol] 1263.0 pg/mL Normal <=1,800.0 [facility] Comment on above: Performed By: #### C MP, BNP ####[facility] Gwvhumsqjh[address] [place], [place] [address]Dr. Villa Yanes CARDIAC ANAMARIA ADMITon 022 CK [Catalytic activity/Vol] 13 U/L Critically low 39-308 [facility] Comment on above: Performed By: #### C MADM, BNP ####[facility] Vekvpvwnce5263 [place] [address]Dr. Villa Yanes CK.MB [Mass/Vol] ng/mL Normal <=3.60 [facility] Comment on above: Performed By: #### C MADM, BNP ####[facility] Kxjojzljzf1524 [place] [address]Dr. Villa Yanes HSTROP 9.1 pg/mL Normal 4.0-76.1 [facility] Comment on above: Result Comment: CUT- OFF POINTS HAVE BEEN ESTABLISHED BASED ON THE FOURTH UNIVERSAL DEFINITIONS OF MYOCARDIALINFARCTION. THE UPPER REFERENCE LIMIT (URL) OF TROPONIN, DEFINED THE 99TH PERCENTILE OFcTnI DISTRIBUTION IN A REFERENCE POPULATION, HAS BEEN CONFIRMED THE DECISION THRESHOLDFOR PA DIAGNOSIS. Performed By: #### C MADM, BNP ####[facility] Dayijazqht[address] [place] [address]Dr. Villa Joaquín JULIA 52 ng/mL Normal 16-96 [facility] Comment on above: Performed By: #### C MADM, BNP ####[facility] Bcgvikmuik00[address] [place] [address]Dr. Villa Joaquín CBC AUTO DIFFon 10-10-2021 BASO # 0.1 103/ul Normal 0.0-0.1 [facility] Comment on above: Performed By: #### C BC ####[facility] Fevjbnunfe[address] [place] [address]Dr. Villa Joaquín Basophils/100 WBC (Bld) 0.3 % Normal 0.2-2.0 [facility] Comment on above: Performed By: #### C BC ####[facility] Vwpiklznaz2325 [place] [address]Dr. Villa Yanes EO # 0.2 103/ul Normal 0.0-0.7 [facility] Comment on above: Performed By: #### C BC ####[facility] Nenfmzdiby2998 [place] [address]Dr. Villa Yanes Eosinophils/100 WBC (Bld) 1.1 % Normal 0.9-7.0 [facility] Comment on above: Performed By: #### C BC ####[facility] [address]ssqdeewv[address] [place], [place] [address]Dr. Villa Yanes Erythrocyte distribution width (RBC) [Ratio] 13.2 % Normal 11.0-15.0 [facility] Comment on above: Performed By: #### C BC ####[facility] Uvvrxvhjid[address] [place], [place] [address]Dr. Villa Yanes Hematocrit (Bld) [Volume fraction] 29.2 % Critically low 42.0-54.0 [facility] Comment on above: Performed By: #### C BC ####[facility] [address]lqvpafsyl[address] [place], [place] [address]Dr. Villa Yanes Hemoglobin (Bld) [Mass/Vol] 9.3 g/dL Critically low 14.0-18.0 [facility] Comment on above: Performed By: #### C BC ####[facility] [address]wdngmdiuc97[address] [place], [place] [address]Dr. Villa Yanes IG # 0.11 10e3/ul Critically high 0.00-0.03 [facility] Comment on above: Performed By: #### C BC ####[facility] Smfpivefpo5[address] [place], [place] [address]Dr. Villa Yanes IG % 0.7 % Critically high 0.0-0.5 [facility] Comment on above: Performed By: #### C BC ####[facility] Eejxzgxlyf[address] [place], [place] [address]Dr. Villa Yanes LYMPH # 1.0 103/ul Critically low 1.2-3.8 [facility] Comment on above: Performed By: #### C BC ####[facility] Vjfbyhbmmp[address] [place], [place] [address]Dr. Villa Yanes Lymphocytes/100 WBC (Bld) 6.4 % Critically low 20.5-60.0 [facility] Comment on above: Performed By: #### C BC ####[facility] [address]usilbeuzg4[address] [place] [id number]. Villa Yanes MANUAL DIFF REQ NO Normal [facility] Comment on above: Performed By: #### C BC ####[facility] Ucnezbbafr5992 [place] [id number]. Villa Yanes MCH (RBC) [Entitic mass] 30.2 pg Normal 25.9-34.0 [facility] Comment on above: Performed By: #### C BC ####[facility] Mhxklujwci6603 [place] [id number]. Villa Yanes MCHC (RBC) [Mass/Vol] 31.8 g/dL Normal 29.9-35.2 [facility] [facility] Comment on above: Performed By: #### C BC ####[facility] Fsnmwdbngq46[address] [place] [address]Dr. Villa Yanes MCV (RBC) [Entitic vol] 94.8 fL Critically high 80.0-94.0 [facility] Comment on above: Performed By: #### C BC ####[facility] Mg[address]mdouri[address] [place], [place] [id number]. Villa Joaquín MONO # 0.9 103/ul Critically high 0.3-0.8 [facility] Comment on above: Performed By: #### C BC ####[facility] S[address]qovgu[address] [place], [place] [address]Dr. Brooklynkaren Yanes Monocytes/100 WBC (Bld) 5.4 % Normal 1.7-12.0 [facility] Comment on above: Performed By: #### C BC ####[facility] Zfhcddzsyy44[address] [place] [id number]. Villa Yanes NEUT # 13.7 103/ul Critically high 1.4-6.5 [facility] Comment on above: Performed By: #### C BC ####[facility] Tfcgvqrrom[address] [place], [place] [address]Dr. Brooklynkaren Yanes Neutrophils/100 WBC (Bld) 86.1 % Critically high 43.0-75.0 [facility] Comment on above: Performed By: #### C BC ####[facility] Nghzigfzhj26[address] [place] [phone]. Villa Yanes Platelet mean volume (Bld) [Entitic vol] 10.5 fL Normal 9.5-13.5 [facility] Comment on above: Performed By: #### C BC ####[facility] Hogwaiygvy[address] [place] [id number]. Villa Yanes PLT 293 103/ul Normal 150-450 [facility] Comment on above: Performed By: #### C BC ####[facility] Xddsiuawrj5615 [place] [id number]. Villa Yanes RBC 3.08 106/ul Critically low 4.70-6.10 [facility] Comment on above: Performed By: #### C BC ####[facility] Iyvrupihsx036[address] [place] [phone]. Villa Yanes WBC 15.9 103/ul Critically high 4.0-11.0 [facility] Comment on above: Performed By: #### C BC ####[facility] Xgpedgyhky0357 [place] [phone]. Villa Yanes CULTURE URINEon 10-10-2021 CULTURE URINE Culture Observations : No growth Normal [facility] Comment on above: Performed By: #### U RCX ####[facility] Wlrubvbomy2903 [place] [phone]. Villa Yanes POINT OF CARE GLUCOSEon 09-22 Glucose [Mass/Vol] 214 mg/dL Critically high 74-106 [facility] Comment on above: Performed By: #### P OCGLUC ####[facility] Chdxpsvosh36[address] [place] [phone]. Villa Yanes Glucose [Mass/Vol] 309 mg/dL Critically high 74-106 [facility] Comment on above: Performed By: #### P OCGLUC ####[facility] Panjkndjpa[address] [place] [phone]. Vilal Yanes Glucose [Mass/Vol] 196 mg/dL Critically high 74-106 [facility] Comment on above: Performed By: #### P OCGLUC ####[facility] Znebafogwj2559 [place] [address]Dr. Villa Yanes Glucose [Mass/Vol] 185 mg/dL Critically high 74-106 [facility] Comment on above: Performed By: #### P OCGLUC ####[facility] Gnnwknsepy9086 [place] [address]Dr. Villa Yanes PROF 14(COMP METB)on 022 Albumin [Mass/Vol] 1.7 g/dL Critically low 3.4-5.0 [facility] Comment on above: Performed By: #### C MP, BNP ####[facility] Miitwrgzbh3686 [place] [address]Dr. Villa Yanes Albumin/Globulin [Mass ratio] 0.4 {ratio} Normal [facility] Comment on above: Performed By: #### C MP, BNP ####[facility] Etececuvxi04[address] [place] [address]Dr. Villa Yanes ALP [Catalytic activity/Vol] 127 U/L Critically high 46-116 [facility] Comment on above: Performed By: #### C MP, BNP ####[facility] Qgljrefkqd7977 [place] [address]Dr. Villa Yanes ALT [Catalytic activity/Vol] 6 U/L Critically low 16-63 [facility] Comment on above: Performed By: #### C MP, BNP ####[facility] Htapsnjdes6510 [place] [address]Dr. Villa Yanes Anion gap [Moles/Vol] 11.6 mmol/L Normal [facility] Comment on above: Performed By: #### C MP, BNP ####[facility] Qqtvobkkty9826 [place] [address]Dr. Villa Yanes AST [Catalytic activity/Vol] 15 U/L Normal 15-37 [facility] Comment on above: Performed By: #### C MP, BNP ####[facility] Gajpzvjnup6356 [place] [address]Dr. Villa Yanes Bilirubin [Mass/Vol] 0.2 mg/dL Normal 0.2-1.0 [facility] Comment on above: Performed By: #### C MP, BNP ####[facility] Ertfxnugzq6370 [place] [address]Dr. Villa Yanes Calcium [Mass/Vol] 8.4 mg/dL Critically low 8.5-10.1 Th e [facility] Comment on above: Performed By: #### C MP, BNP ####[facility] Gdboeyycid[address] [place], [place] [address]Dr. Villa Yanes Chloride [Moles/Vol] 101 mmol/L Normal 98-107 [facility] Comment on above: Performed By: #### C MP, BNP ####[facility] Zrlfchbwmr[address] [place], [place] [address]Dr. Villa Yanes CO2 [Moles/Vol] 26.3 mmol/L Normal 21.0-32.0 [facility] Comment on above: Performed By: #### C MP, BNP ####[facility] Jcexwsjqdq3276[address] [place], [place] [address]Dr. Villa Yanes Creatinine [Mass/Vol] 1.57 mg/dL Critically high 0.70-1.30 [facility] Comment on above: Performed By: #### C MP, BNP ####[facility] Onzexucwjk83[address] [place], [place] [address]Dr. Villa Yanes EGFR-AF MARTINIQUAIS 52 mL/min/1.73m2 Critically low >=60 [facility] Comment on above: Performed By: #### C MP, BNP ####[facility] Mnhdwykakn[address] [place], [place] [address]Dr. Villa Yanes EGFR-NON AF MARTINIQUAIS 43 mL/min/1.73m2 Critically low >=60 [facility] Comment on above: Performed By: #### C MP, BNP ####[facility] Asgqjvvmnu[address] [place], [place] [address]Dr. Villa Yanes Globulin (S) [Mass/Vol] 4.1 g/dL Normal [facility] Comment on above: Performed By: #### C MP, BNP ####[facility] Dehwzvkbla693[address] [place], [place] [address]Dr. Villa Joaquín Glucose [Mass/Vol] 243 mg/dL Critically high 74-106 [facility] Comment on above: Performed By: #### C MP, BNP ####[facility] Xgndnwaxiy9440[address] [place], [place] [address]Dr. Villa Yanes Potassium [Moles/Vol] 3.9 mmol/L Normal 3.5-5.1 [facility] Comment on above: Performed By: #### C MP, BNP ####[facility] Lxvkzwvgaw9234[address] [place], [place] [address]Dr. Villa Yanes Protein [Mass/Vol] 5.8 g/dL Critically low 6.4-8.2 [facility] Comment on above: Performed By: #### C MP, BNP ####[facility] Wuokqdpcte826[address] [place], [place] [address]Dr. Villa Yanes Sodium [Moles/Vol] 135 mmol/L Critically low 136-145 [facility] Comment on above: Performed By: #### C MP, BNP ####[facility] Pcuoeixvmm0110[address] [place], [place] [address]Dr. Villa Yanes Urea nitrogen [Mass/Vol] 35.0 mg/dL Critically high 7.0-18.0 [facility] Comment on above: Performed By: #### C MP, BNP ####[facility] Gcowynvfll5[address] [place], [place] [address]Dr. Villa Yanes Urea nitrogen/Creatinine [Mass ratio] 22.3 mg/mg Normal [facility] Comment on above: Performed By: #### C MP, BNP ####[facility] Zccftmfliu1618[address] [place], [place] [address]Dr. Villa Yanes UA RANDOM W/MICROSCOPICon BACTERIA NONE SEEN Normal NONE SEEN [facility] Comment on above: Performed By: #### U AMIC ####[facility] Dxuteuuikd734[address] [place], [place] [address]Dr. Villa Yanes Bilirubin Ql (U) Negative Normal NEGATIVE [facility] Comment on above: Performed By: #### U AMIC ####[facility] Hpddpoyogl34[address] [place], [place] [address]Dr. Villa Yanes CAST NONE SEEN Normal NONE SEEN [facility] Comment on above: Performed By: #### U AMIC ####[facility] Zrfpebujyx4[address] [place], [place] [address]Dr. Villa Yanes Clarity (U) CLEAR Normal CLEAR [facility] Comment on above: Performed By: #### U AMIC ####[facility] Toeyyyxqsk12[address] [place], [place] [address]Dr. Villa Yanes Color (U) YELLOW Normal YELLOW [facility] Comment on above: Performed By: #### U AMIC ####[facility] Dpfexierbz1533[address] [place], [place] [address]Dr. Villa Yanes Crystals LM Nom (Urine sed) NONE SEEN Normal NONE SEEN [facility] Comment on above: Performed By: #### U AMIC ####[facility] Jzjvtbheil68[address] [place], [place] [address]Dr. Villa Yanes Epithelial cells LM Ql (Urine sed) RARE Normal NONE SEEN /RARE [facility] Comment on above: Performed By: #### U AMIC ####[facility] Jkvcrjlwss2268[address] [place], [place] [address]Dr. Villa Yanes Glucose Ql (U) Negative Normal NEGATIVE [facility] Comment on above: Performed By: #### U AMIC ####[facility] Xybqvodnqx0[address] [place], [place] [address]Dr. Villa Ynaes Hemoglobin Ql (U) Negative Normal NEGATIVE [facility] Comment on above: Performed By: #### U AMIC ####[facility] Ylgeezaxht1504[address] [place], [place] [address]Dr. Villa Yanes Ketones Ql (U) Negative Normal NEGATIVE [facility] Comment on above: Performed By: #### U AMIC ####[facility] Jdjyyrwvyj1456[address] [place], [place] [address]Dr. Brooklynlan Yanes LEUKOCYTES Negative Normal NEGATIVE [facility] Comment on above: Performed By: #### U AMIC ####[facility] Ungwokqtie354[address] [place], [place] [address]Dr. Yilan Yanes MUCOUS NONE SEEN Normal NONE SEEN [facility] Comment on above: Performed By: #### U AMIC ####[facility] Widietjlkv8973 [place] [address]Dr. Villa Yanes Nitrite Ql (U) Negative Normal NEGATIVE [facility] Comment on above: Performed By: #### U AMIC ####[facility] Lyrfxatbkw4974 [place] [address]Dr. Villa Yanes pH (U) 5.5 [pH] Normal 5-9 [facility] Comment on above: Performed By: #### U AMIC ####[facility] Lagylkbynd664[address] [place], [place] [address]Dr. Villa Yanes RBC 2-5 Abnormal 0-2 [facility] Comment on above: Performed By: #### U AMIC ####[facility] Eixelhkjee75[address] [place], [place] [address]Dr. Villa Yanes SPEC GRAVITY 1.025 Normal 1.005-<=1.0 25 [facility] Comment on above: Performed By: #### U AMIC ####[facility] Ssgfehcntl48[address] [place], [place] [address]Dr. Villa Yanes UA PROTEIN 100 mg/dl Abnormal NEGATIVE/ TRACE [facility] Comment on above: Performed By: #### U AMIC ####[facility] Nhgskvjepu24[address] [place], [place] [address]Dr. Villa Joaquín Urobilinogen Qn (U) 0.2 {Mackenzie'U}/dL Normal 0.2 - 1. 0 [facility] Comment on above: Performed By: #### U AMIC ####[facility] Pmvudksmej5129[address] [place], [place] [address]Dr. Villa Yanes WBC NONE SEEN Normal NONE SEEN [facility] Comment on above: Performed By: #### U AMIC ####[facility] Gronbskhnr86[address] [place], [place] [address]Dr. Brooklynkaren Yanes BNPon 10-09-2021 Natriuretic peptide B (Bld) [Mass/Vol] 1670.0 pg/mL Normal <=1,800.0 [facility] Comment on above: Performed By: #### B IT OPERATIONS ANALYST, CMP ####[facility] Llwnkkhxkj4953 [place] [address]Dr. Villa Yanes CBC AUTO DIFFon 10-09-2021 BASO # 0.1 103/ul Normal 0.0-0.1 [facility] Comment on above: Performed By: #### C BC ####[facility] Hzwblschoy7540[address] [place], [place] [address]Dr. Villa Yanes Basophils/100 WBC (Bld) 0.3 % Normal 0.2-2.0 [facility] Comment on above: Performed By: #### C BC ####[facility] Xatuzcqoqy12[address] [place], [place] [address]Dr. Villa Yanes EO # 0.2 103/ul Normal 0.0-0.7 [facility] Comment on above: Performed By: #### C BC ####[facility] Xxhvpovdan5199[address] [place], [place] [address]Dr. Brooklynkaren Yanes Eosinophils/100 WBC (Bld) 1.1 % Normal 0.9-7.0 [facility] Comment on above: Performed By: #### C BC ####[facility] Txzsmynfrl[address] [place], [place] [address]Dr. Villa Yanes Erythrocyte distribution width (RBC) [Ratio] 12.9 % Normal 11.0-15.0 [facility] Comment on above: Performed By: #### C BC ####[facility] Dpiyntjeah60[address] [place], [place] [address]Dr. Villa Yanes Hematocrit (Bld) [Volume fraction] 32.6 % Critically low 42.0-54.0 [facility] Comment on above: Performed By: #### C BC ####[facility] Fdirarigom47[address] [place], [place] [address]Dr. Villa Yanes Hemoglobin (Bld) [Mass/Vol] 10.4 g/dL Critically low 14.0-18.0 [facility] Comment on above: Performed By: #### C BC ####[facility] Jmhtsjtjge[address] [place], [place] [address]Dr. Brooklynkaren Yanes IG # 0.13 10e3/ul Critically high 0.00-0.03 [facility] Comment on above: Performed By: #### C BC ####[facility] Kog[address]xhjp20[address] [place] [id number]. Villa Yanes IG % 0.9 % Critically high 0.0-0.5 [facility] Comment on above: Performed By: #### C BC ####[facility] Fcdrttsjcd7497 [place] [id number]. Villa Yanes LYMPH # 1.0 103/ul Critically low 1.2-3.8 [facility] Comment on above: Performed By: #### C BC ####[facility] Lxzabmzpgi4433 [place] [address]Dr. Villa Yanes Lymphocytes/100 WBC (Bld) 6.7 % Critically low 20.5-60.0 [facility] Comment on above: Performed By: #### C BC ####[facility] Iqllushodn9133 [place] [address]Dr. Brooklynkaren Yanes MANUAL DIFF REQ NO Normal [facility] Comment on above: Performed By: #### C BC ####[facility] [address]kbemvrf[address] [place], [place] [address]Dr. Villa Yanes MCH (RBC) [Entitic mass] 30.5 pg Normal 25.9-34.0 [facility] Comment on above: Performed By: #### C BC ####[facility] Pimzfoaods5491 [place] [id number]. Villa Yanes MCHC (RBC) [Mass/Vol] 31.9 g/dL Normal 29.9-35.2 [facility] Comment on above: Performed By: #### C BC ####[facility] Bhvvjtlbwg[address] [place], [place] [address]Dr. Villa Yanes MCV (RBC) [Entitic vol] 95.6 fL Critically high 80.0-94.0 [facility] Comment on above: Performed By: #### C BC ####[facility] Jpfbqvcjpw6[address] [place], [place] [address]Dr. Villa Yanes MONO # 0.8 103/ul Normal 0.3-0.8 [facility] Comment on above: Performed By: #### C BC ####[facility] Elmxoupbyk0967 [place] [id number]. Villa Yanes Monocytes/100 WBC (Bld) 5.4 % Normal 1.7-12.0 [facility] Comment on above: Performed By: #### C BC ####[facility] Dbghpjrzzg2541 [place] [id number]. Villa Yanes NEUT # 13.0 103/ul Critically high 1.4-6.5 [facility] Comment on above: Performed By: #### C BC ####[facility] Grmjsvworh2708 [place] [address]Dr. Villa Yanes Neutrophils/100 WBC (Bld) 85.6 % Critically high 43.0-75.0 [facility] Comment on above: Performed By: #### C BC ####[facility] Idvbywgswk9868 [place] [address]Dr. Villa Yanes Platelet mean volume (Bld) [Entitic vol] 9.8 fL Normal 9.5-13.5 [facility] Comment on above: Performed By: #### C BC ####[facility] Imjkmksivw2238 [place] [address]Dr. Villa Yanes PLT 299 103/ul Normal 150-450 [facility] Comment on above: Performed By: #### C BC ####[facility] Tjfauxdryp5589 [place] [address]Dr. Villa Yanes RBC 3.41 106/ul Critically low 4.70-6.10 [facility] Comment on above: Performed By: #### C BC ####[facility] Axluxmbgxt0763 [place] [address]Dr. Villa Yanes WBC 15.1 103/ul Critically high 4.0-11.0 [facility] Comment on above: Performed By: #### C BC ####[facility] Towgeycalm[address] [place] [address]Dr. Villa Yanes CT ABD/PELV W CONon 10-10-19 CT ABD/PELV W CON Normal [facility] MAGNESIUMon 10-09-2021 Magnesium [Mass/Vol] 2.5 mg/dL Critically high 1.8-2.4 [facility] Comment on above: Performed By: #### PETER Hart ####[facility] Onicijsbzy[address] [place], [place] [address]Dr. Villa Yanes PHOSPHORUSon 10-09-2021 Phosphate [Mass/Vol] 3.8 mg/dL Normal 2.6-4.7 [facility] Comment on above: Performed By: #### PETER Hart ####[facility] Vxtcrkmujs[address] [place], [place] [address]Dr. Villa Yanes POINT OF CARE GLUCOSEon 09-21 Glucose [Mass/Vol] 244 mg/dL Critically high 74-106 [facility] Comment on above: Performed By: #### P OCGLUC ####[facility] Htawkqgolx98[address] [place], [place] [address]Dr. Villa Yanes Glucose [Mass/Vol] 171 mg/dL Critically high 74-106 [facility] Comment on above: Performed By: #### P OCGLUC ####[facility] Ofonljytdh83[address] [place], [place] [address]Dr. Villa Yanes Glucose [Mass/Vol] 203 mg/dL Critically high -106 [facility] Comment on above: Performed By: #### P OCGLUC ####[facility] Mcpngggenr[address] [place], [place] [address]Dr. Villa Yanes Glucose [Mass/Vol] 171 mg/dL Critically high 74-106 [facility] Comment on above: Performed By: #### P OCGLUC ####[facility] Wgzbvtpchx37[address] [place], [place] [address]Dr. Villa Yanes PROF 14(COMP METB)on 022 Albumin [Mass/Vol] 2.0 g/dL Critically low 3.4-5.0 [facility] Comment on above: Performed By: #### B IT OPERATIONS ANALYST, CMP ####[facility] Grctpockth[address] [place], [place] [address]Dr. Villa Yanes Albumin/Globulin [Mass ratio] 0.5 {ratio} Normal [facility] Comment on above: Performed By: #### B IT OPERATIONS ANALYST, CMP ####[facility] Pivalcwheo[address] [place] [id number]. Villa Yanes ALP [Catalytic activity/Vol] 113 U/L Normal 46-116 [facility] Comment on above: Performed By: #### B IT OPERATIONS ANALYST, CMP ####[facility] Skcafjtaqn4753 [place] [id number]. Villa Joaquín ALT [Catalytic activity/Vol] 10 U/L Critically low 16-63 [facility] Comment on above: Performed By: #### B IT OPERATIONS ANALYST, CMP ####[facility] Mvvazznozc4719 [place] [id number]. Villa Yanes Anion gap [Moles/Vol] 11.0 mmol/L Normal Th e [facility] Comment on above: Performed By: #### B IT OPERATIONS ANALYST, CMP ####[facility] Ivxidyjwkj[address] [place], [place] [address]Dr. Villa Yanes AST [Catalytic activity/Vol] 28 U/L Normal 15-37 [facility] Comment on above: Performed By: #### B IT OPERATIONS ANALYST, CMP ####[facility] Ouywmroktq6[address] [place], [place] [address]Dr. Brooklynkaren Joaquín Bilirubin [Mass/Vol] 0.3 mg/dL Normal 0.2-1.0 [facility] Comment on above: Performed By: #### B IT OPERATIONS ANALYST, CMP ####[facility] Utmvhdgdjo2164 [place] [id number]. Villa Yanes Calcium [Mass/Vol] 8.7 mg/dL Normal 8.5-10.1 [facility] Comment on above: Performed By: #### B IT OPERATIONS ANALYST, CMP ####[facility] Civwjxbscl3613 [place] [id number]. Villa Yanes Chloride [Moles/Vol] 100 mmol/L Normal 98-107 [facility] Comment on above: Performed By: #### B IT OPERATIONS ANALYST, CMP ####[facility] Ghhducfezv3165 [place] [address]Dr. Villa Yanes CO2 [Moles/Vol] 28.1 mmol/L Normal 21.0-32.0 [facility] Comment on above: Performed By: #### B IT OPERATIONS ANALYST, CMP ####[facility] Fuvetfjecp[address] [place] [address]Dr. Villa Joaquín Creatinine [Mass/Vol] 1.61 mg/dL Critically high 0.70-1.30 [facility] Comment on above: Performed By: #### B IT OPERATIONS ANALYST, CMP ####[facility] Liwtuylpeq[address] [place], [place] [address]Dr. Villa Joaquín EGFR-AF MARTINIQUAIS 50 mL/min/1.73m2 Critically low >=60 [facility] Comment on above: Performed By: #### B IT OPERATIONS ANALYST, CMP ####[facility] Mwesrqmaiz[address] [place], [place] [address]Dr. Villa Yanes EGFR-NON AF MARTINIQUAIS 42 mL/min/1.73m2 Critically low >=60 [facility] Comment on above: Performed By: #### B IT OPERATIONS ANALYST, CMP ####[facility] Xeunlalsmh25[address] [place], [place] [address]Dr. Villa Yanes Globulin (S) [Mass/Vol] 4.1 g/dL Normal [facility] Comment on above: Performed By: #### B IT OPERATIONS ANALYST, CMP ####[facility] Xhmmqfhpya11[address] [place], [place] [address]Dr. Villa Yanes Glucose [Mass/Vol] 154 mg/dL Critically high 74-106 [facility] Comment on above: Performed By: #### B IT OPERATIONS ANALYST, CMP ####[facility] Rardkjqxjc39[address] [place], [place] [address]Dr. Villa Yanes Potassium [Moles/Vol] 4.1 mmol/L Normal 3.5-5.1 [facility] Comment on above: Performed By: #### B IT OPERATIONS ANALYST, CMP ####[facility] [address]vdnfwvyeh[address] [place], [place] [address]Dr. Villa Yanes Protein [Mass/Vol] 6.1 g/dL Critically low 6.4-8.2 [facility] Comment on above: Performed By: #### B IT OPERATIONS ANALYST, CMP ####[facility] Atpnmzznen[address] [place], [place] [address]Dr. Villa Yanes Sodium [Moles/Vol] 135 mmol/L Critically low 136-145 [facility] Comment on above: Performed By: #### B IT OPERATIONS ANALYST, CMP ####[facility] Mrupfhhjff[address] [place], [place] [address]Dr. Villa Yanes Urea nitrogen [Mass/Vol] 29.0 mg/dL Critically high 7.0-18.0 [facility] Comment on above: Performed By: #### B IT OPERATIONS ANALYST, CMP ####[facility] Atojoiv[address] [place], [place] [address]Dr. Villa Yanes Urea nitrogen/Creatinine [Mass ratio] 18.0 mg/mg Normal [facility] Comment on above: Performed By: #### B IT OPERATIONS ANALYST, CMP ####[facility] Hmz[address]ky[address] [place], [place] [address]Dr. Villa Yanes XR ABD FLAT UP_PA Temo 10-09 XR ABD FLAT UP_PA CH Normal [facility] BNPon 10-08-2021 Natriuretic peptide B (Bld) [Mass/Vol] 1299.0 pg/mL Normal <=1,800.0 [facility] Comment on above: Performed By: #### B IT OPERATIONS ANALYST, CMP ####[facility] Dpmvrrznkr[address] [place], [place] [address]Dr. Villa Yanes CBC AUTO DIFFon 10-08-2021 BASO # 0.1 103/ul Normal 0.0-0.1 [facility] Comment on above: Performed By: #### C BC ####[facility] Itmatyhjvn[address] [place], [place] [address]Dr. Villa Yanes Basophils/100 WBC (Bld) 0.7 % Normal 0.2-2.0 [facility] Comment on above: Performed By: #### C BC ####[facility] Wsbccowz[address] [place], [place] [address]Dr. Villa Yanes EO # 0.4 103/ul Normal 0.0-0.7 [facility] Comment on above: Performed By: #### C BC ####[facility] Btwqgwgdnb[address] [place], [place] [address]Dr. Villa Yanes Eosinophils/100 WBC (Bld) 4.5 % Normal 0.9-7.0 [facility] Comment on above: Performed By: #### C BC ####[facility] W[address]knpfnosz[address] [place], [place] [address]Dr. Villa Yanes Erythrocyte distribution width (RBC) [Ratio] 13.1 % Normal 11.0-15.0 [facility] Comment on above: Performed By: #### C BC ####[facility] X[address] [place], [place] [address]DrBrenden Yanes Hematocrit (Bld) [Volume fraction] 32.8 % Critically low 42.0-54.0 [facility] Comment on above: Performed By: #### C BC ####[facility] Hmvxryzcro[address] [place], [place] [address]DrBrenden Yanes Hemoglobin (Bld) [Mass/Vol] 10.3 g/dL Critically low 14.0-18.0 [facility] Comment on above: Performed By: #### C BC ####[facility] Nmgbnkaxrd[address] [place], [place] [address]Dr. Villa Yanes IG # 0.13 10e3/ul Critically high 0.00-0.03 [facility] Comment on above: Performed By: #### C BC ####[facility] Qwszghqaxx[address] [place], [place] [address]Dr. Villa Yanes IG % 1.4 % Critically high 0.0-0.5 [facility] Comment on above: Performed By: #### C BC ####[facility] [address]ewbw[address] [place], [place] [address]DrBrenden Yanes LYMPH # 1.2 103/ul Normal 1.2-3.8 [facility] Comment on above: Performed By: #### C BC ####[facility] Ieldvtihip[address] [place], [place] [address]DrBrenden Yanes Lymphocytes/100 WBC (Bld) 13.0 % Critically low 20.5-60.0 [facility] Comment on above: Performed By: #### C BC ####[facility] C[address]myheaern[address] [place], [place] [address]DrBrenden Yanes MANUAL DIFF REQ NO Normal [facility] Comment on above: Performed By: #### C BC ####[facility] [address] [place] [address]DrBrenden Yanes MCH (RBC) [Entitic mass] 30.2 pg Normal 25.9-34.0 [facility] Comment on above: Performed By: #### C BC ####[facility] [address] [place] [address]DrBrenden Yanes MCHC (RBC) [Mass/Vol] 31.4 g/dL Normal 29.9-35.2 [facility] Comment on above: Performed By: #### C BC ####[facility] Bgtivvfpxy[address] [place], [place] [address]DrBrenden Yanes MCV (RBC) [Entitic vol] 96.2 fL Critically high 80.0-94.0 [facility] Comment on above: Performed By: #### C BC ####[facility] Vfcawiswbe[address] [place], [place] [address]DrBrenden Yanes MONO # 0.7 103/ul Normal 0.3-0.8 [facility] Comment on above: Performed By: #### C BC ####[facility] Lixtnbfrlp5[address] [place], [place] [address]DrBrenden Yanes Monocytes/100 WBC (Bld) 7.9 % Normal 1.7-12.0 [facility] Comment on above: Performed By: #### C BC ####[facility] [address]koltwwi[address] [place], [place] [address]DrBrenden Yanes NEUT # 6.8 103/ul Critically high 1.4-6.5 [facility] Comment on above: Performed By: #### C BC ####[facility] [address]vhkxi[address] [place], [place] [address]DrBrenden Yanes Neutrophils/100 WBC (Bld) 72.5 % Normal 43.0-75.0 [facility] Comment on above: Performed By: #### C BC ####[facility] Mwmgmzzbhs[address] [place], [place] [address]DrBrenden Yanes Platelet mean volume (Bld) [Entitic vol] 9.2 fL Critically low 9.5-13.5 [facility] Comment on above: Performed By: #### C BC ####[facility] [address] [place] [id number]. Villa Yanes PLT 258 103/ul Normal 150-450 [facility] Comment on above: Performed By: #### C BC ####[facility] [address] [place] [address]Dr. Villa Yanes RBC 3.41 106/ul Critically low 4.70-6.10 [facility] Comment on above: Performed By: #### C BC ####[facility] [address] [place] [address]Dr. Villa Yanes WBC 9.4 103/ul Normal 4.0-11.0 [facility] Comment on above: Performed By: #### C BC ####[facility] [address]es[address] [place] [address]DrBrenden Villa Yanes POINT OF CARE GLUCOSEon 09-21 Glucose [Mass/Vol] 180 mg/dL Critically high 74-106 [facility] Comment on above: Performed By: #### P OCGLUC ####[facility] [address]ds[address] [place] [address]Dr. Villa Yanes Glucose [Mass/Vol] 159 mg/dL Critically high 74-106 [facility] Comment on above: Performed By: #### P OCGLUC ####[facility] [address] [place] [address]Dr. Villa Yanes Glucose [Mass/Vol] 110 mg/dL Critically high 74-106 [facility] Comment on above: Performed By: #### P OCGLUC ####[facility] [address] [place] [address]DrBrenden Villa Joaquín PROF 14(COMP METB)on 022 Albumin [Mass/Vol] 2.1 g/dL Critically low 3.4-5.0 [facility] Comment on above: Performed By: #### B IT OPERATIONS ANALYST, CMP ####[facility] [address]zlfx94[address] [place] [id number]. Villa Yanes Albumin/Globulin [Mass ratio] 0.5 {ratio} Normal [facility] Comment on above: Performed By: #### B IT OPERATIONS ANALYST, CMP ####[facility] [address] [place] [address]Dr. Villa Yanes ALP [Catalytic activity/Vol] 92 U/L Normal 46-116 [facility] Comment on above: Performed By: #### B IT OPERATIONS ANALYST, CMP ####[facility] [address] [place] [address]Dr. Villa Yanes ALT [Catalytic activity/Vol] 9 U/L Critically low 16-63 [facility] Comment on above: Performed By: #### B IT OPERATIONS ANALYST, CMP ####[facility] Btxpnaesna[address] [place], [place] [address]Dr. Villa Yanes Anion gap [Moles/Vol] 9.6 mmol/L Normal [facility] Comment on above: Performed By: #### B IT OPERATIONS ANALYST, CMP ####[facility] Mbmkmwmtnw[address] [place], [place] [address]Dr. Villa Yanes AST [Catalytic activity/Vol] 13 U/L Critically low 15-37 [facility] Comment on above: Performed By: #### B IT OPERATIONS ANALYST, CMP ####[facility] W[address]btffhjn[address] [place], [place] [address]Dr. Villa Yanes Bilirubin [Mass/Vol] 0.3 mg/dL Normal 0.2-1.0 [facility] Comment on above: Performed By: #### B IT OPERATIONS ANALYST, CMP ####[facility] [address] [place] [address]Dr. Villa Yanes Calcium [Mass/Vol] 9.0 mg/dL Normal 8.5-10.1 [facility] Comment on above: Performed By: #### B IT OPERATIONS ANALYST, CMP ####[facility] Xrgiohpwqv[address] [place], [place] [address]Dr. Villa Yanes Chloride [Moles/Vol] 102 mmol/L Normal 98-107 [facility] Comment on above: Performed By: #### B IT OPERATIONS ANALYST, CMP ####[facility] Wfrfwifszc[address] [place], [place] [address]Dr. Villa Joaquín CO2 [Moles/Vol] 29.5 mmol/L Normal 21.0-32.0 [facility] Comment on above: Performed By: #### B IT OPERATIONS ANALYST, CMP ####[facility] Luspgailed[address] [place], [place] [address]Dr. Villa Joaquín Creatinine [Mass/Vol] 1.49 mg/dL Critically high 0.70-1.30 [facility] Comment on above: Performed By: #### B IT OPERATIONS ANALYST, CMP ####[facility] Iwfurckgih6[address] [place], [place] [address]Dr. Villa Yanes EGFR-AF MARTINIQUAIS 55 mL/min/1.73m2 Critically low >=60 [facility] Comment on above: Performed By: #### B IT OPERATIONS ANALYST, CMP ####[facility] O[address]fwrwhtd[address] [place], [place] [address]Dr. Villa Yanes EGFR-NON AF MARTINIQUAIS 45 mL/min/1.73m2 Critically low >=60 [facility] Comment on above: Performed By: #### B IT OPERATIONS ANALYST, CMP ####[facility] Mmesehcqjh6[address] [place], [place] [address]Dr. Villa Yanes Globulin (S) [Mass/Vol] 4.2 g/dL Normal [facility] Comment on above: Performed By: #### B IT OPERATIONS ANALYST, CMP ####[facility] Q[address]spzcbjns[address] [place], [place] [address]Dr. Villa Yanse Glucose [Mass/Vol] 157 mg/dL Critically high 74-106 [facility] Comment on above: Performed By: #### B IT OPERATIONS ANALYST, CMP ####[facility] Aazouysldx[address] [place], [place] [address]Dr. Villa Yanes Potassium [Moles/Vol] 4.1 mmol/L Normal 3.5-5.1 [facility] Comment on above: Performed By: #### B IT OPERATIONS ANALYST, CMP ####[facility] Vdjdijycyy[address] [place], [place] [address]Dr. Villa Yanes Protein [Mass/Vol] 6.3 g/dL Critically low 6.4-8.2 [facility] Comment on above: Performed By: #### B IT OPERATIONS ANALYST, CMP ####[facility] [address] [place] [address]Dr. Villa Yanes Sodium [Moles/Vol] 137 mmol/L Normal 136-145 [facility] Comment on above: Performed By: #### B IT OPERATIONS ANALYST, CMP ####[facility] [address]omrjp[address] [place] [address]Dr. Villa Joaquín Urea nitrogen [Mass/Vol] 26.0 mg/dL Critically high 7.0-18.0 [facility] Comment on above: Performed By: #### B IT OPERATIONS ANALYST, CMP ####[facility] [address]qrut[address] [place] [address]Dr. Brooklynkaren Joaquín Urea nitrogen/Creatinine [Mass ratio] 17.4 mg/mg Normal [facility] Comment on above: Performed By: #### B IT OPERATIONS ANALYST, CMP ####[facility] [address]zb[address] [place] [address]Dr. Villa Yanes POINT OF CARE GLUCOSEon 09-21 Glucose [Mass/Vol] 145 mg/dL Critically high 74-106 [facility] Comment on above: Performed By: #### P OCGLUC ####[facility] [address] [place] [address]Dr. Villa Yanes Glucose [Mass/Vol] 163 mg/dL Critically high 74-106 [facility] Comment on above: Performed By: #### P OCGLUC ####[facility] [address] [place] [address]Dr. Villa Yanes Glucose [Mass/Vol] 169 mg/dL Critically high 74-106 [facility] Comment on above: Performed By: #### P OCGLUC ####[facility] [address]rijeor[address] [place], [place] [address]Dr. Villa Yanes Tobacco Screening.on 022 Adult depression screening assessment No [facility] 250 DO Work Phone: Fall risk assessment b) One or more fall s in the last year [facility] 250 DO Work Phone: Tobacco use status CPHS a) Yes [facility] 250 DO Work Phone: Tobacco Screening. Yes [facility] marika 250 DO Work Phone: Vital Signs Date Time Vital Sign Value Performing Clinician Facility 02-04-2023 11:57-0400 Body height 180.34 cm Micheal M Hoy Work Phone: [facility] 250 DO Work Phone: 02-04-2023 11:57-0400 Body mass index (BMI) [Ratio] 19.53 kg/m2 Micheal M Hoy Work Phone: [facility] 250 DO Work Phone: 02-04-2023 11:57-0400 Body surface area Derived from formula 1.81 m2 Micheal M Hoy Work Phone: [facility] 250 DO Work Phone: 02-04-2023 11:57-0400 Body weight 63.5 kg Micheal M Hoy Work Phone: [facility] 250 DO Work Phone: 02-04-2023 11:57-0400 Diastolic blood pressure 62 mm[Hg] Micheal M Hoy Work Phone: [facility] 250 DO Work Phone: 02-04-2023 11:57-0400 Heart rate 62 /min Micheal M Hoy Work Phone: [facility] 250 DO Work Phone: 02-04-2023 11:57-0400 Systolic blood pressure 140 mm[Hg] Micheal M Hoy Work Phone: [facility] 250 DO Work Phone: 11-26-2022 00:00-0400 55 1 Micheal M Hoy Work Phone: [facility] 250 DO Work Phone: Comment on above: [id number] 11-25-2022 22:09-0400 Body height 180.34 cm MD Micheal Gutiérrez Work Phone: [facility] 11-25-2022 22:09-0400 Body temperature 98.1 [degF] MD Micheal Gutiérrez Work Phone: [facility] 11-25-2022 22:09-0400 Body weight 56.9 kg MD Micheal Gutiérrez Work Phone: [facility] 11-25-2022 22:09-0400 Diastolic blood pressure 94 mm[Hg] MD Micheal Gutiérrez Work Phone: [facility] 11-25-2022 22:09-0400 Heart rate 69 /min MD Micheal Gutiérrez Work Phone: [facility] 11-25-2022 22:09-0400 Respiratory rate 18 /min MD Micheal Gutiérrez Work Phone: [facility] 11-25-2022 22:09-0400 SaO2% (BldA) [Mass fraction] 94 % MD Micheal Gutiérrez Work Phone: [facility] 11-25-2022 22:09-0400 Systolic blood pressure 177 mm[Hg] MD Micheal Gutiérrez Work Phone: [facility] 08-04-2022 11:02-0400 Body height 180.34 cm Micheal Dick Torsteny Work Phone: [facility] 250 DO Work Phone: 08-04-2022 11:02-0400 Body mass index (BMI) [Ratio] 17.71 kg/m2 Michealkiersten Sarmientoy Work Phone: [facility] 250 DO Work Phone: 08-04-2022 11:02-0400 Body surface area Derived from formula 1.74 m2 Michealkiersten Sarmientoy Work Phone: [facility] 250 DO Work Phone: 08-04-2022 11:02-0400 Body weight 57.61 kg Micheal M Hoy Work Phone: [facility] 250 DO Work Phone: 08-04-2022 11:02-0400 Diastolic blood pressure 60 mm[Hg] Micheal M Hoy Work Phone: [facility] 250 DO Work Phone: 08-04-2022 11:02-0400 Heart rate 82 /min Micheal M Hoy Work Phone: [facility] 250 DO Work Phone: 08-04-2022 11:02-0400 Systolic blood pressure 120 mm[Hg] Micheal M Hoy Work Phone: [facility] 250 DO Work Phone: 03-12-2022 12:03-0400 Body height 180.34 cm Micheal M Hoy Work Phone: [facility] 250 DO Work Phone: 03-12-2022 12:03-0400 Body mass index (BMI) [Ratio] 19.67 kg/m2 Micheal M Hoy Work Phone: [facility] 250 DO Work Phone: 03-12-2022 12:03-0400 Body surface area Derived from formula 1.82 m2 Micheal M Hoy Work Phone: [facility] 250 DO Work Phone: 03-12-2022 12:03-0400 Body weight 63.96 kg Micheal M Hoy Work Phone: [facility] 250 DO Work Phone: 03-12-2022 12:03-0400 Diastolic blood pressure 64 mm[Hg] Micheal M Hoy Work Phone: [facility] 250 DO Work Phone: 03-12-2022 12:03-0400 Heart rate 64 /min Micheal Dick Hoy Work Phone: [facility] 250 DO Work Phone: 03-12-2022 12:03-0400 Systolic blood pressure 134 mm[Hg] Micheal Dick Hoy Work Phone: [facility] 250 DO Work Phone: 02-17-2022 15:33-0400 Body height 180.34 cm Micheal Dick Hoy Work Phone: [facility] 250 DO Work Phone: 02-17-2022 15:33-0400 Body mass index (BMI) [Ratio] 19.72 kg/m2 Micheal Dick Hoy Work Phone: [facility] 250 DO Work Phone: 02-17-2022 15:33-0400 Body surface area Derived from formula 1.82 m2 Micheal Dick Hoy Work Phone: [facility] 250 DO Work Phone: 02-17-2022 15:33-0400 Body weight 64.13 kg Micheal Dick Hoy Work Phone: [facility] 250 DO Work Phone: 02-17-2022 15:33-0400 Diastolic blood pressure 70 mm[Hg] Micheal M Hoy Work Phone: [facility] 250 DO Work Phone: 02-17-2022 15:33-0400 Heart rate 80 /min Micheal M Hoy Work Phone: [facility] 250 DO Work Phone: 02-17-2022 15:33-0400 Systolic blood pressure 124 mm[Hg] Micheal M Hoy Work Phone: [facility] 250 DO Work Phone: 2022 14:04-0400 Body height 170.8 cm Billie Guan MD Work Phone: [facility] 2022 14:04-0400 Body weight 62.14 kg Billie Guan MD Work Phone: [facility] 2022 14:04-0400 Diastolic blood pressure 76 mm[Hg] Billie Guan MD Work Phone: [facility] 2022 14:04-0400 Heart rate 78 /min Billie Guan MD Work Phone: [facility] 2022 14:04-0400 Systolic blood pressure 124 mm[Hg] Billie Guan MD Work Phone: [facility] 01-12-2022 11:28-0400 Body height 180.34 cm Micheal M Hoy Work Phone: [facility] 250 DO Work Phone: 01-12-2022 11:28-0400 Body mass index (BMI) [Ratio] 18.69 kg/m2 Micheal M Hoy Work Phone: [facility] 250 DO Work Phone: 01-12-2022 11:28-0400 Body surface area Derived from formula 1.78 m2 Micheal M Hoy Work Phone: [facility] 250 DO Work Phone: 01-12-2022 11:28-0400 Body weight 60.78 kg Micheal M Hoy Work Phone: [facility] 250 DO Work Phone: 01-12-2022 11:28-0400 Diastolic blood pressure 52 mm[Hg] Micheal M Hoy Work Phone: [facility] 250 DO Work Phone: 01-12-2022 11:28-0400 Heart rate 96 /min Micheal Gutiérrez Work Phone: [facility] 250 DO Work Phone: 01-12-2022 11:28-0400 Systolic blood pressure 100 mm[Hg] Micheal Gutiérrez Work Phone: [facility] 250 DO Work Phone: 12-31-2021 12:26-0400 Body temperature 98.4 [degF] Wanchana Sachai [employer] Work Phone: [facility] 12-31-2021 12:26-0400 Diastolic blood pressure 85 mm[Hg] Wanchana Sachai [employer] RU[employer]ER [employer] Work Phone: [facility] 12-31-2021 12:26-0400 Heart rate 67 /min Wanchana Sachai [employer] RU[employer]ER [employer] Work Phone: [facility] 12-31-2021 12:26-0400 SaO2% (BldA) [Mass fraction] 98 % Wanchana Sachai FO[employer]ER [employer] Work Phone: [facility] 12-31-2021 12:26-0400 Systolic blood pressure 138 mm[Hg] Wanchana Sachai FOAM RU[employer]ER [employer] Work Phone: [facility] 12-31-2021 09:48-0400 Body height 170.8 cm Idris Hawk MD Work Phone: [facility] 12-31-2021 09:48-0400 Body temperature 97.5 [degF] Idris Hawk MD Work Phone: [facility] 12-31-2021 09:48-0400 Body weight 58.92 kg Idris Hawk MD Work Phone: [facility] 12-31-2021 09:48-0400 Diastolic blood pressure 57 mm[Hg] Idris Hawk MD Work Phone: [facility] 12-31-2021 09:48-0400 Heart rate 93 /min Idris Hawk MD Work Phone: [facility] 12-31-2021 09:48-0400 Respiratory rate 24 /min Idris Hawk MD Work Phone: [facility] 12-31-2021 09:48-0400 SaO2% (BldA) [Mass fraction] 99 % Idris Hawk MD Work Phone: [facility] 12-31-2021 09:48-0400 Systolic blood pressure 104 mm[Hg] Idris Hawk MD Work Phone: [facility] 11-27-2021 13:06-0400 Body height 180.3 cm Alissa Arrigon [employer]ER [employer] Work Phone: [facility] 11-27-2021 13:06-0400 Body weight 58.88 kg Alissa Arrigon [employer]ER [employer] Work Phone: [facility] 11-27-2021 13:06-0400 Diastolic blood pressure 63 mm[Hg] Alissa Arrigon FO[employer]ER [employer] Work Phone: [facility] 11-27-2021 13:06-0400 Heart rate 97 /min Alissa Arrigon [employer]ER [employer] Work Phone: [facility] 11-27-2021 13:06-0400 Systolic blood pressure 125 mm[Hg] Alissa Arrigon FO[employer]ER [employer] Work Phone: [facility] 11-04-2021 09:45-0400 60 1 Micheal M Hoy Work Phone: [facility] 250A PA Work Phone: Comment on above: [id number] 09-11-2021 10:19-0400 Body height 180.34 cm Micheal M Hoy Work Phone: [facility] 250 DO Work Phone: 09-11-2021 10:19-0400 Body mass index (BMI) [Ratio] 20.92 kg/m2 Micheal M Hoy Work Phone: [facility] 250 DO Work Phone: 09-11-2021 10:19-0400 Body surface area Derived from formula 1.87 m2 Micheal M Hoy Work Phone: [facility] 250 DO Work Phone: 09-11-2021 10:19-0400 Body weight 68.04 kg Micheal M Hoy Work Phone: [facility] 250 DO Work Phone: 09-11-2021 10:19-0400 Diastolic blood pressure 69 mm[Hg] Micheal M Hoy Work Phone: [facility] 250 DO Work Phone: 09-11-2021 10:19-0400 Heart rate 77 /min Micheal M Hoy Work Phone: [facility] 250 DO Work Phone: 09-11-2021 10:19-0400 Systolic blood pressure 101 mm[Hg] Micheal M Hoy Work Phone: [facility] 250 DO Work Phone: Encounters Encounter Date Encounter Type Care Provider Facility Start: 02-04-2023 Office outpatient vi sit 25 minutes Micheal M Hoy Work Phone: [facility] 250 DO Work Phone: Start: 02-04-[address] Lauro Collins Facility: Start: 11-27-[address] Micheal Gutiérrez Facility:[id number] Start: 11-26-[address] Micheal Gutiérrez Facility:[id number] Start: 11-25-2022 End: 11-30-2022 Evaluation and management of inpatient Rosie Mischler Facility:[facility] Start: 11-25-2022 Evaluation and management of inpatient MD Micheal Gutiérrez Work Phone: [facility] [place] [facility] Work Phone: Start: 10-05-2022 End: 10-05-2022 ambulatory ANAHY CHAUDHRY . Facility:[facility] Start: 09-11-2022 End: 09-12-[address] RANGEL MCGOVERN . Facility:[facility] Start: 09-10-2022 ambulatory DEVON SILVESTRE . Facili ty:[facility] Start: 08-17-2022 End: 08-18-[address] MICHEAL GUTIÉRREZ . Facility:[facility]1 Start: 08-04-2022 Office outpatient vi sit 25 minutes Micheal Gutiérrez Work Phone: [facility] 250 DO Work Phone: Start: 08-04-[address] Lauro Collins Facility: Start: 07-30-2022 End: 07-31-[address] MICHEAL GUTIÉRREZ . Facility:[facility] Start: 07-28-2022 End: 07-29-2022 ambulatory MYNOR TEIXEIRAMIGREGORY . Facility:[facility]1 Start: 07-16-2022 End: 07-17-2022 ambulatory MYNOR TEIXEIRAMIPATHBraydon . Facility:[facility]1 Start: 07-13-2022 Telephone encounter Micheal Gutiérrez Work Phone: [facility] 250 DO Work Phone: Start: 07-10-2022 End: 07-10-2022 ambulatory Hansel Otero PA-C Work Phone: General Surgery Comment on above: S/P percutaneous end oscopic gastrostomy (PEG) tube placement (HCC) (Primary Dx) Start: 07-10-2022 End: 07-10-2022 Telemedicine consultation with patient Hansel Otero PA-C Work Phone: [facility] Start: 07-01-2022 End: 07-01-2022 ambulatory GAURAV [...] 40 minutes Micheal M Hoy Work Phone: [facility] 250 DO Work Phone: Start: 02-20-2022 End: 02-20-2022 ambulatory MICHEAL GUTIÉRREZ Facility:[facility] Start: 02-17-2022 Office outpatient vi sit 15 minutes Micheal M Hoy Work Phone: [facility] 250 DO Work Phone: Start: 02-17-2022 Patient encounter procedure Micheal M Hoy Work Phone: [facility] 250 DO Work Phone: Start: 02-17-2022 Refill Alissa Colindres on FOAM RUBBER CURER.PIE TOPPER Work Phone: Urology Comment on above: Opened In Error Start: 02-02-2022 Encounter for other preprocedural examination BILLIE GUAN [facility] Start: 02-02-2022 End: 02-03-2022 Evaluation and management of inpatient BILLIE Roxanna FREIDA Facility:[facility] Start: 02-02-2022 Telephone encounter Alissa mcqueen APRN.PIE TOPPER Work Phone: Urology Comment on above: Medication Problem Start: 01-27-2022 ambulatory Rivka Crespo RN General Surgery Comment on above: 01/28/2022 Start: 01-27-2022 Preprocedural examination done Rivka Crespo RN General Surgery Start: 01-27-2022 Telephone encounter Thu Lancaster RN General Surgery Comment on above: Patient Update Start: 01-24-2022 End: 01-24-2022 ambulatory MICHEAL GUTIÉRREZ Facility:[facility] Start: 2022 End: 01-24-2022 ambulatory [facility] Roxanna [facility] Facility:[facility] Start: 2022 End: 2022 Patient encounter procedure Billie Guan MD Work Phone: General Surgery Comment on above: 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) Start: 01-17-2022 End: 01-17-[address] ANAMARIA BENITEZ Facility: Start: 01-16-2022 End: 01-16-2022 Subsequent hospital visit by physician [facility] (I-Stat/1.5t) Radiology Comment on above: 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 Facili ty:H1 Start: 12-31-2021 End: 12-31-2021 Emergency department patient visit MICHEAL GUTIÉRREZ Facility:[facility] Start: 12-31-2021 End: 12-31-2021 ambulatory MICHEAL SARMIENTOBraydon Facility:[facility] Start: 12-31-2021 End: 12-31-2021 Office outpatient new 30 minutes Yadira Frazier [employer]PIE TOPPER Work Phone: [facility] Comment on above: Feeding tube blocked , initial encounter (Primary Dx); SOB (shortness of breath) on exertion; Chronic cough Start: 12-31-2021 End: 12-31-2021 ambulatory MICHEAL GUTIÉRREZ Facility:[facility] Start: 12-31-2021 End: 12-31-2021 Patient encounter procedure Idris Hawk MD Work Phone: Vascular Surg Dept Comment on above: Peripheral arterial disease (HCC) (Primary Dx) Start: 12-24-2021 End: 12-24-2021 ambulatory Michealkiersten Sarmientobraydon Facility:[facility] Start: 12-24-2021 End: 12-24-2021 Discharged Recurring MD Micheal Gutiérrez Work Phone: [facility] Start: 12-19-2021 End: 12-20-[address] MICHEAL GUTIÉRREZ . Facility:[facility]1 Start: 12-18-2021 End: 12-19-[address] MICHEAL GUTIÉRREZ . Facility:[facility] Start: 12-13-2021 Telephone encounter Brock garcia MD Work Phone: Urology Comment on above: Patient Question Start: 12-04-2021 End: 12-04-2021 ambulatory ALISSA LACKEY Facility:[facility] Start: 12-04-2021 Telephone encounter Alissa mcqueen [employer] RU[employer].PIE TOPPER Work Phone: Urology Comment on above: Results Start: 12-03-2021 ambulatory Alissa partida [employer].PIE TOPPER Work Phone: Urology Comment on above: Kidney CT Start: 12-02-2021 End: 12-02-2021 ambulatory ALISSA Florencia ARRIGON Facility:[facility] Start: 12-02-2021 End: 12-02-2021 Subsequent hospital visit by physician Karlene [facility] Karla Work Phone: Radiology Comment on above: Renal lesion [N28.9] Start: 11-27-2021 End: 11-28-2021 ambulatory Alissa P Arrigon FOAM RUBBER CURER.PIE TOPPER Work Phone: Urology Start: 11-27-2021 Telephone encounter Micheal Gutiérrez MD Work Phone: NOC Comment on above: Follow Up Phone Call (All Clear) Start: 11-27-2021 End: 11-27-2021 Patient encounter procedure Alissa Torrezn FOAM RUBBER [employer]ER.PIE TOPPER Work Phone: Urology Comment on above: Urinary retention (P rimary Dx); Renal lesion Start: 11-21-2021 Admission to [facility] Micheal Gutiérrez MD Work Phone: [facility] Work Phone: Start: 11-20-2021 Telephone encounter Idris Hawk MD Work Phone: Vascular Surg Dept Comment on above: Appointment Start: 11-19-2021 Telephone encounter [facility]al [facility]rez [facility] Work Phone: Start: 11-11-2021 Chart Update Micheal Gutiérrez Work Phone: [facility] 250 DO Work Phone: Start: 11-11-[address] SHUKRI HONG . Facility: Start: 11-10-2021 Admission to [facility] Work Phone: Start: 11-09-2021 End: 11-20-2021 Evaluation and management of inpatient [facility] Facility:[facility] Start: 11-04-2021 Patient encounter procedure Micheal Gutiérrez Work Phone: [facility] [place] Work Phone: Start: 10-28-2021 End: 10-28-[address] MICHEAL GUTIÉRREZ . Facility: Start: 09-23-2021 AUDIT Micheal Gutiérrez Work Phone: [facility] 250 DO Work Phone: Start: 09-11-2021 Office outpatient vi sit 40 minutes Micheal Gutiérrez Work Phone: [facility] 250 DO Work Phone: Start: 04-20-2018 End: 04-21-2018 Patient encounter procedure DEFAULT PHYSICIAN Facility:[facility] Procedures Date Procedure Procedure Detail Performing Clinician Start: 11-25-2022 Plain chest X-ray MD Micheal Gutiérrez Work Phone: Start: 12-02-2021 Ct abdomen w/o & w/contrast material Alissa Lackey APRN.PIE TOPPER Work Phone: Start: 11-15-2021 Antibody screen MICHEAL GUTIÉRREZ Comment on above: Order Comment: Specimen Type: BLOOD SPEC IMENOrdering Facility: [facility] Address: [address] [place] [address] Performed By: #### T SCR ####CC MAIN BLOOD BANKCLIA [id number] [address] Start: 11-10-2021 Antibody screen MICHEAL GUTIÉRREZ Comment on above: Order Comment: Specimen Type: BLOOD SPEC IMENOrdering Facility: [facility] Address: [address] [place] [address] Performed By: #### T SCR ####CC MAIN BLOOD BANKCLIA [id number] [address] Start: 11-10-2021 History of percutaneous transluminal [...] Author Start: 02-03-2025 DIABETES SCREEN DIABETES SCREEN [facility] Start: 11-14-2024 DIABETES SCREEN DIABETES SCREEN [facility] Start: 08-05-2023 FUV, Provider: Lauro Collins, Status: Pen, Time: 11:10 AM FUV, Provider: Lauro Collins, Status: Pen, Time: 11:10 AM [facility] 250 DO Work Phone: Start: 01-22-2023 Influenza vaccination INFLUENZA (#1) [facility] Start: 01-05-2023 FUV, Provider: Lauro Collins, Status: Pen, Time: 2:50 PM FUV, Provider: Lauro Collins, Status: Pen, Time: 2:50 PM [facility] 250 DO Work Phone: Start: 12-31-2022 ANNUAL PCP TEAM PRODUCTION TEAM MEMBER CRISTY DISEASE VISIT ANNUAL PCP TEAM CHRONIC DISEASE VISIT [facility] Start: 11-26-2022 Blood chemistry [facility] Start: 11-26-2022 [facility] Start: 11-25-2022 End: 11-25-2022 [facility] Start: 11-25-2022 Physical therapy procedure [facility] Start: 11-25-2022 Referral to diamond assorter [facility] Start: 11-25-2022 Referral to occupational therapist [facility] Start: 11-25-2022 Hospital admission [facility] Start: 11-25-2022 Bacteria identified in Blood by Culture [facility] Start: 08-04-2022 FUV, Provider: Lauro Collins, Status: Pen, Time: 10:30 AM FUV, Provider: Lauro Collins, Status: Pen, Time: 10:30 AM -[facility] 250 DO Work Phone: Start: 05-24-2022 ADVANCE DIRECTIVE DISCUSSION ADVANCE DIRECTIVE DISCUSSION [facility] Start: 05-24-2022 DEPRESSION ASSESSMENT DEPRESSION ASS ESSMENT [facility] Start: 03-12-2022 FUV, Provider: Lauro Collins, Status: Pen, Time: 11:40 AM FUV, Provider: Lauro Collins, Status: Pen, Time: 11:40 AM -[facility] 250 DO Work Phone: Start: 03-11-2022 FUV, Provider: Lauro Collins, Status: Pen, Time: 10:40 AM FUV, Provider: Lauro Collins, Status: Pen, Time: 10:40 AM -[facility] 250 DO Work Phone: Start: 01-27-2022 FUV, Provider: Rochelle Herrmann, Status: Pen, Time: 3:30 PM FUV, Provider: Rochelle Herrmann, Status: Pen, Time: 3:30 PM -[facility] 250 DO Work Phone: Start: 01-22-2022 Influenza vaccination INFLUENZA (#1) [facility] Start: 12-04-2021 End: 02-03-2022 Bacteria identified in Urine by Culture URINE CULTURE Microbiology Routine Cloudy urine Expected: 12/04/2021, Expires: 02/03/2022 [facility] Work Phone: Comment on above: Expected: 12/04/2021 , Expires: 02/03/2022 Start: 11-04-2021 PVR, Provider: KIMU MARIKA [facility] 01,[id number], Status: Pen, Time: 10:45 AM PVR, Provider: HERIBERTO [facility] 01,[id number], Status: Pen, Time: 10:45 AM [facility] Work Phone: Start: 11-04-2021 ECHO, Provider: HERIBERTO [facility] 01,[id number], Status: Pen, Time: 9:45 AM ECHO, Provider: HERIBERTO [facility] 01,[id number], Status: Pen, Time: 9:45 AM [facility] Work Phone: Start: 10-08-2021 PVR, Provider: KIMAndrés MARIKA [facility] 01,[id number], Status: Pen, Time: 10:45 AM PVR, Provider: HERIBERTO [facility] 01,[id number], Status: Pen, Time: 10:45 AM [facility] 250 DO Work Phone: Start: 10-08-2021 ECHO, Provider: HERIBERTO [facility] 01,[id number], Status: Pen, Time: 9:45 AM ECHO, Provider: HERIBERTO [facility] 01,[id number], Status: Pen, Time: 9:45 AM [facility] 250 DO Work Phone: Start: 07-30-2021 COVID-19 VACCINE (4 - Booster for Moderna series) COVID-19 VACCINE (4 - Booster for Moderna series) [facility] Start: 05-27-2021 COVID-19 VACCINE (4 - Booster for Moderna series) COVID-19 VACCINE (4 - Booster for Moderna series) [facility] Start: 05-27-2021 COVID-19 VACCINE (4 - Moderna series) COVID-19 VACCINE (4 - Moderna series) [facility] Start: 05-24-2021 ADVANCE DIRECTIVE DISCUSSION ADVANCE DIRECTIVE DISCUSSION [facility] Start: 05-24-2021 DEPRESSION ASSESSMENT DEPRESSION ASS ESSMENT [facility] Start: 2007 PNEUMOCOCCAL: 65+ (1 - PCV) PNEUMOCOCCAL: 65+ (1 - PCV) [facility] Start: 01-24-1992 SHINGRIX VACCINE (1 of 2) SHINGRIX VACCINE (1 of 2) [facility] Start: 1961 Urine microalbumin profile DTAP,TDAP,TD (1 - Tdap) [facility] Start: 01-24-1960 ANNUAL PCP TEAM PRODUCTION TEAM MEMBER CRISTY DISEASE VISIT ANNUAL PCP TEAM CHRONIC DISEASE VISIT [facility] Start: 01-24-1960 Hepatitis B surface antibody level LDL CHOLESTEROL [facility] Start: 1954 Adult depression screening assessment DEPRESSION SCREENING [facility] Start: 01-24-1948 PNEUMOCOCCAL: 65+ (1 - PCV) PNEUMOCOCCAL: 65+ (1 - PCV) [facility] End: 12-27-2022 Ct abdomen w/o & w/contrast material CT KIDNEY WO/W IVCON Radiology Routine Renal lesion 1 Occurrences starting 11/27/2021 until 12/27/2022 [facility] Work Phone: Comment on above: 1 Occurrences starti ng 11/27/2021 until 12/27/2022 End: 01-03-2023 Mri abdomen w/o & w/contrast material MRI KIDNEY WO/W IVCON Radiology Routine Other specified disorders of kidney and ureter 1 Occurrences starting 12/04/2021 until 01/03/2023 [facility] Work Phone: Comment on above: 1 Occurrences starti ng 12/04/2021 until 01/03/2023 URINALYSIS, REFLEX MICROSCOPIC URINALYSIS, REFLEX MICROSCOPIC Lab Routine Screening for genitourinary condition Ordered: 11/27/2021 [facility] Work Phone: Comment on above: Ordered: 11/27/2021 URINALYSIS, REFLEX MICROSCOPIC URINALYSIS, REFLEX MICROSCOPIC Lab Routine Screening for genitourinary condition Ordered: 12/03/2021 [facility] Work Phone: Comment on above: Ordered: 12/03/2021 [facility] Immunizations Immunization Date Immunization Notes Care Provider Reji prieto 03-05-2022 influenza, high dose seasonal, preservative-free Micheal M Hoy Work Phone: [facility] 250 DO Work Phone: Comment on above: Series: 04-01-2021 Moderna COVID-19 Vac cine 100 MCG/0.5ML Intramuscular Suspension Micheal M Hoy Work Phone: [facility] Work Phone: 03-13-2021 influenza, injectabl e, quadrivalent, preservative free Micheal M Hoy Work Phone: [facility] 250 DO Work Phone: Comment on above: Series: 02-17-2021 Seasonal trivalent influenza vaccine, adjuvanted, preservative free Micheal M Hoy Work Phone: [facility] Work Phone: 08-22-2020 pneumococcal polysaccharide vaccine, 23 valent Micheal M Hoy Work Phone: [facility] 250 DO Work Phone: Comment on above: Series: 07-19-2020 Moderna COVID-19 Vac cine 100 MCG/0.5ML Intramuscular Suspension Micheal M Hoy Work Phone: [facility] Work Phone: 06-21-2020 Moderna COVID-19 Vac cine 100 MCG/0.5ML Intramuscular Suspension Micheal M Hoy Work Phone: [facility] Work Phone: 03-06-2020 influenza, high dose seasonal, preservative-free Micheal M Hoy Work Phone: [facility] Work Phone: 02-23-2020 Seasonal trivalent influenza vaccine, adjuvanted, preservative free Micheal M Hoy Work Phone: [facility] Work Phone: 04-06-2018 influenza, injectabl e, quadrivalent, preservative free Micheal M Torsteny Work Phone: [facility] Work Phone: 02-28-2018 tetanus and diphther ia toxoids, adsorbed, preservative free, for adult use (5 Lf of tetanus toxoid and 2 Lf of diphtheria toxoid) Micheal Sarmientoy Work Phone: [facility] Work Phone: 07-12-2017 influenza, injectabl e, quadrivalent, preservative free Micheal M Hoy Work Phone: [facility] Work Phone: 04-07-2017 zoster vaccine, live Micheal Jennings Hobraydon Work Phone: [facility] Work Phone: 02-15-2017 influenza, high dose seasonal, preservative-free Micheal M Torsteny Work Phone: [facility] Work Phone: 02-15-2017 pneumococcal conjuga te vaccine, 13 valent Micheal M Torsteny Work Phone: [facility] Work Phone: 05-24-2016 pneumococcal conjuga te vaccine, 13 valent Micheal M Hoy Work Phone: [facility] Work Phone: 03-04-2016 influenza, injectabl e, quadrivalent, preservative free Micheal M Hoy Work Phone: [facility] Work Phone: 07-29-2015 influenza, injectabl e, quadrivalent, preservative free Micheal M Hoy Work Phone: [facility] Work Phone: 03-06-2015 pneumococcal polysaccharide vaccine, 23 valent Micheal M Hoy Work Phone: [facility] Work Phone: 01-03-2015 tetanus toxoid, redu mark diphtheria toxoid, and acellular pertussis vaccine, adsorbed Micheal M Marla Work Phone: [facility] Work Phone: 05-09-2009 novel influenza-H1N1 -09, preservative-free, injectable Micheal Gutiérrez Work Phone: [facility] Work Phone: Payers Date Payer Category Payer Medicare [id number] 2021 Self-pay [id number] 2021 [place] [id number] 2021-Present [phone] [address] [place] [address] Medicaid [id number] 2021 [place] [id number] 2021-Present [phone] [address] [place] [address] Medicaid [id number] 2020 Unknown 2020 Unknown ANTHEM BLUE CROS S AND BLUE SHIELD ANTHEM MEDIBLUE HMO [id number] 2020-Present [phone] [address] [place] [address] O [id number]. [id number] 1959 Medicaid [id number] 1959 Medicare [id number] 1959 Self-pay [id number] 1942 Unknown [id number] 2.16.840.1.683278.3.579.2.647 1942 Unknown [id number] 2.16.840.1.938063.3.579.2.593 1942 Unknown [id number] 2.16.840.1.841571.3.579.2.593 1942 Unknown [id number] 2.16.840.1.504994.3.579.2.593 1942 Unknown [id number] 2.16.840.1.850882.3.579.2.593 1942 Unknown [id number] 2.16.840.1.575745.3.579.2.593 1942 Unknown [id number] 2.16.840.1.493276.3.579.2.593 1942 Unknown [id number] 2.16.840.1.012899.3.579.2.593 1942 Unknown [id number] 2.16.840.1.038024.3.579.2.593 1942 Unknown [id number] 2.16.840.1.680944.3.579.2.593 1942 Unknown [id number] 2.16.840.1.380429.3.579.2.593 1942 Unknown [id number] 2.16.840.1.337121.3.579.2.593 1942 Unknown [id number] 2.16.840.1.617756.3.579.2.593 1942 Unknown [id number] 2.16.840.1.399418.3.579.2.593 1942 Unknown [id number] 2.16.840.1.597290.3.579.2.593 1942 Unknown [id number] 2.16.840.1.441509.3.579.2.593 1942 Unknown [id number] 2.16.840.1.841747.3.579.2.593 1942 Unknown [id number] 2.16.840.1.407220.3.579.2.593 1942 Unknown [id number] 2.16.840.1.471292.3.579.2.593 1942 Unknown [id number] 2.16.840.1.102267.3.579.2.593 1942 Unknown [id number] 2.16.840.1.780199.3.579.2.593 1942 Unknown [id number] 2.16.840.1.549091.3.579.2.593 1942 Unknown [id number] 2.16.840.1.701829.3.579.2.593 1942 Unknown [id number] 2.16.840.1.123238.3.579.2.593 1942 Unknown [id number] 2.16.840.1.308115.3.579.2.593 1942 Unknown [id number] 2.16.840.1.185404.3.579.2.593 1942 Unknown [id number] 2.16.840.1.155113.3.579.2.356 1942 Unknown [id number] 2.16.840.1.661087.3.579.2.356 1942 Unknown [id number] 2.16.840.1.033860.3.579.2.356 1942 Unknown [id number] 2.16.840.1.144244.3.579.2.356 1942 Unknown [id number] 2.16.840.1.198223.3.579.2.356 1942 Unknown [id number] 2.16.840.1.140825.3.579.2.356 1942 Unknown [id number] 2.16.840.1.603184.3.579.2.356 Medicare Medicare [id number] Medicare Medicare Outpatient [id number] Medicare [id number] Unknown [id number] 2.16.840.1.764324.3.579.2.531 Unknown [id number] 2.16.840.1.881230.3.579.2.531 Unknown [id number] 2.16.840.1.056396.3.579.2.531 Social History Date Type Detail Facility Start: 11-10-2021 End: 11-27-2021 No illicit drug use No illicit drug use [facility] DO Work Phone: Comment on above: some tea; 5 cigarettes; 1 ppd; Start: 07-07-2021 [facility] Start: 1940 Sex Assigned At Male [facility] Start: 11-01-2021 End: 02-02-2022 Exposure to SARS-CoV-2 (event) Not sure [facility] Start: 11-27-2021 End: 12-31-2021 Tobacco smoking status WAIS Smokes tobacco daily [facility] Start: 11-27-2021 End: 12-31-2021 Tobacco use and exposure Former smokeless tobacco user [facility] Start: 11-25-2022 [facility] Start: 11-10-2021 End: 11-27-2021 Tobacco use panel [facility] National Score (1-10 0), lower number is lower risk 83 [facility] Start: 11-16-2021 Gender identity Identifies as male gender (finding) [facility] Start: 11-16-2021 Sexual orientation Heterosexual (ángel colmenares) [facility] Medical Equipment Procedure Code Equipment Code Equipment Origin al Text Equipment Identifier Dates use 1 TEST STRIP to TEST BLOOD SUGAR twice a day Start: 12-13-2021 Comment on above: use 1 TEST STRIP to TEST BLOOD SUGAR twice a day Drug-eluting coronary artery stent, non-bioabsorbable- polymer-coated [id number] FDA Start: 07-08-2021 Kit Endovive 20f r Standard [place] Silicone Peg Pull Method Drea - [id number] Start: 02-02-2022 Clinical Notes 11-10-2021 to 07-28-2022 Hansel Otero PA-C - 07/10/2022 2:14 PM ESTTelephone Encounter - Alissa Lackey FOAM RUBBER CURER.NADER - 02/02/2022 2:58 PM EDTTelephone Encounter - Thu Lancaster RN - 01/27/2022 8:21 PM EDT Note Date & Type Note Facility 07-28-2022 Note [facility] 07-28-2022 Note [facility] 07-16-2022 Note [facility] 07-16-2022 Note [facility] 07-10-2022 Note [facility] 07-10-2022 History of Presen t illness Narrative [...] TIME: 2:14 PM documented in this encounter [facility] 02-20-2022 Note [facility] 02-03-2022 Note [facility] 02-03-2022 Note HNO ID: [id number] Author: Elva Farias RN Service: Nursing Author Type: Registered Nurse Type: Nursing Progress Note Filed: 02/03/2022 6:30 AM Note Text: Patient refused turn and ambulation and was educated on benefits. [facility] 02-03-2022 Note [facility] 02-02-2022 Note [facility] 02-02-2022 Miscellaneous Notes Talked with Farideh at [...] Alissa Lackey APRN.CNP documented in this encounter [facility] 01-27-2022 Miscellaneous Notes BMI SPECIALTY CARE [...] NPO after midnight. documented in this encounter [facility] 2022 Note [facility] 2022 History of Presen t illness Narrative [...] DATE: 2022 TIME: 2:56 PM PAGER/CONTACT #: [phone] documented in this encounter [facility] 01-12-2022 Miscellaneous Notes Replied to more recent message regarding MBS. Alissa Lackey APRN.CNP documented in this encounter [facility] 12-31-2021 Note [facility] 12-31-2021 Nurse Note Franki Hernandez is a [...] Naveed Nicholson LPN documented in this encounter [facility] 12-31-2021 History of Presen t illness Narrative Images from the original note were not included. Medicine [place] Department of General Internal Medicine [facility] Outpatient Visit Date: December 31, 2021 CC: Patient presents with: Physiological Problem - GI HPI:Franki Hernandez is a 81 year old male who presents today to the internal medicine department 0 walk in clinic for a complains of list above. 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 Hx angiogram with intervention at [facility] in [place] with bilateral iliac stents and R EIA stent in 2009 (reports not currently available). PCP: Micheal Gutiérrez MD, MD Last visit: Patient [place] from [facility]. He is here with his daughter who provides most of patient's history. Patient has difficulty swallowing , has h/o throat cancer ~ 25 years. His daughter reports 5 years ago, he had a partial resection of epiglottis. 07/06/2021 - he had a massive PA, intubation was difficulty and his throat muscle was stretching. He was on thick liquid and got aspiration PNA, he then got admitted and hospitalization. They decided to put him on NG tube. He started loosing weights ~ 60 lbs. They decided to give him a peg tube , but it was accidentally placed on his colon at [facility] in [place]. States he almost . 11/09/2021- they drove [...] States he saw the speech therapist at [facility] and was told that he could swallow. [...] Myocardial infarction (HCC) PAD (peripheral artery disease) ([facility]) Social History Tobacco Use Smoking status: Every Day Smokeless tobacco: Former ACTIVE PROBLEM LIST Diarrhea Severe Protein-Calorie Malnutrition (Hcc) History of PA (Myocardial Infarction) History of Ptca History of Cardiac Arrest Coronary Artery Disease Involving [place] Coronary Artery of [place] Heart Without Angina Pectoris Encounter for Preoperative [...] with PCP and Gen surg Yadira Frazier APRN.PIE TOPPER I spent a total of 35 minutes on the date of the service which included preparing to see the patient, [id number] patient care, completing clinical documentation, obtaining and/or reviewing separately obtained history, performing a medically appropriate examination, counseling and educating the patient/family/caregiver, and care coordination (not separately reported). documented in this encounter [facility] 12-31-2021 History and physical note Images from the original note were not included. 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 Hx angiogram with intervention at [facility] in [place] with bilateral iliac stents and R EIA [...] old male with hx of COPD, recent PA complicated by arrest and transverse colon injury [...] DATE: December 30, 2021 TIME: 9:02 AM [facility] STAFF PHYSICIAN NOTE OF PERSONAL INVOLVEMENT [...] SERVICE: 12:33 PM documented in this encounter [facility] 12-13-2021 Miscellaneous Notes Urology Telephone Note I spoke with pt over the phone today. I explained that her pharmacy does not carry the liquid formation of nitrofurantoin, not does the [facility] in [place]. She reports that she has been able to give him the nitrofurantoin capsules successfully and plans to continue giving it for the rest of the recommended course. Brock Cristina Jr., MD Reconstructive Urology Fellow documented in this encounter [facility] 12-04-2021 Miscellaneous Notes See today's telephone encounter. Alissa Lackey APRN.CNP documented in this encounter [facility] 12-04-2021 Miscellaneous Notes Received prompt call back from daughter. Advised that radiology recommended MRI to further evaluate renal lesion. Instructed her to call [phone] to schedule. Daughter reports that Franki Hernandez cathed after voiding several times, and all PVRs were low (about 45 mL). Advised that they can go ahead and stop ISC. Daughter reports that urine has been cloudy; concerned about infection from having Berry in. Will go to lab at [place] to leave specimen for culture. Daughter reports [...] for daughter, advising that I had seen [facility] messages and CT results. Requested call back at [phone]. Alissa Lackey APRN.PIE TOPPER documented in this encounter [facility] 12-02-2021 Note [facility] 12-02-2021 History of Presen t illness Narrative [...] TIME: 10:41 AM documented in this encounter [facility] 11-27-2021 Note [facility] 11-27-2021 Instructions Alissa Lackey APRN.CNP - 11/27/2021 2:20 PM EDT Please call me at [phone] if you have trouble with catheters or other questions. Please call radiology at [phone] of kidneys. documented in this encounter [facility] 11-27-2021 History of Presen t illness Narrative [facility]ICAL [place] NEW PATIENT HISTORY AND PHYSICAL EXAM PATIENT INFO: Franki Hernandez 81 year old REFERRING Roberto.: [employer] [facility] [id number] = HISTORY: Franki Hernandez is a 81 [...] and home health services. Daughter lives in [place]. 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 Franki Hernandez and are probably going to go to [place] with daughter next week, possibly through the winter. Daughter has questions about renal lesion noted on CT. Also has questions about follow up labs mentioned in discharge summary. Pantoprazole suspension not covered by insurance. Frederick Nielsen tried to dispense pills, but these can't go through tube. Daughter wants to know if [facility] pharmacy can ship pantoprazole to their home. [...] fat-containing left inguinal hernia with focal fluid. Donor Relations Associate (topogram) images: No additional findings. = MEDICATIONS: [...] left renal lesion. Reordered pantoprazole suspension to [facility] pharmacy so daughter can investigate availability/pricing/alternativ es. Will message primary team members from discharge summary to let them know that Franki Hernandez needs follow up lab orders. I spent a total of 60 minutes on the date of the service which included preparing to see the patient, [id number] patient care, completing clinical documentation, performing a medically appropriate examination, counseling and educating the patient/family/caregiver, ordering medications, tests, or procedures and communicating with other HCPs (not separately reported). Electronically signed: Alissa Lackey APRN.NADER documented in this encounter [facility] 11-27-2021 Miscellaneous Notes PATIENT INFORMATION Record ID: [id number] Patient Name: [facility]: [facility] [place]: [facility] Attending: Peter Tobar Center: Hospital Medicine INSTRUCTIONS MA to remind patient of appointment date, time, location SURVEY INFORMATION Medical/Nurse Casserole Preparer: Ruth Coronel 1. Your discharge instructions are [...] (Standard Question) No documented in this encounter [facility] 11-20-2021 Miscellaneous Notes Patient has been referred to Dr. Idris Hawk for evaluation and treatment. Patient has been diagnosed with PVD. Records are in Care Everywhere and [facility]. Referral information is in Epic under scanned documents. Please advise if any additional testing is needed prior to scheduling. Best Contact: Juli Rodas Business Support Specialist documented in this encounter [facility] 11-19-2021 Note [facility] 11-18-2021 Note [facility] 11-18-2021 Note [facility] 11-17-2021 Note [facility] 11-17-2021 Note [facility] 11-17-2021 Note [facility] 11-16-2021 Note [facility] 11-16-2021 Note [facility] 11-15-2021 Note [facility] 11-15-2021 Note [facility] 11-14-2021 Note [facility] 11-14-2021 Note [facility] 11-14-2021 Note [facility] 11-13-2021 Note [facility] 11-12-2021 Note [facility] 11-12-2021 Note [facility] 11-12-2021 Note [facility] 11-12-2021 Note [facility] 11-11-2021 Note [facility] 11-11-2021 Note [facility] 11-11-2021 Note [facility] 11-11-2021 Note [facility] 11-10-2021 Note [facility] 11-10-2021 Note [facility] 11-10-2021 Note [facility] 11-10-2021 Note [facility] Evaluation note Diagnosis Urinary retention- Primary Retention of urine, unspecified Renal lesion Unspecified disorder of kidney and ureter [facility] Diagnosis Screening for genitourinary condition Screening for other and unspecified genitourinary condition [facility] Diagnosis Cloudy urine- Primary Other nonspecific finding on examination of urine [facility] Diagnosis Screening for genitourinary condition Screening for other and unspecified genitourinary condition [facility]* Diagnosis Peripheral arterial disease (HCC)- Primary Peripheral vascular disease, unspecified documented in this encounter [facility] note* Diagnosis Feeding tube blocked, initial encounter- Primary SOB (shortness of breath) on exertion Shortness of breath Chronic cough Cough [facility]* Diagnosis Other specified disorders of kidney and ureter [facility]* Diagnosis Adult failure to thrive- Primary [facility]No assessment [facility] Work Phone: Evaluation note* Diagnosis Adult failure to thrive- Primary Pre-op examination Preoperative examination, unspecified Adult failure to thrive Pre-op examination Preoperative examination, unspecified documented in this encounter [facility] note* Diagnosis S/P percutaneous endoscopic gastrostomy (PEG) tube placement (HCC)- Primary [facility]* Diagnosis Onset Date Resolution Status Acute exacerbation of chroni c obstructive pulmonary disease acute Atrial fibrillation acute Diabetes acute Leukocytosis acute Urinary retention acute [facility] Work Phone: Evaluation note* Diagnosis Renal lesion Unspecified disorder of kidney and ureter [facility]* The patient [...] medication regimen. He denies medication side effects. [facility] [facility] DO Work Phone: History of Present [...] medication regimen. He denies medication side effects. -[employer] DO Work Phone: History of Present illness [...] medication regimen. He denies medication side effects. [employer] Work Phone: History of Present illness Narrative* [...] medication regimen. He denies medication side effects. 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 Patient was apparently readmitted to [place] ICU for dehydration/hypovolemia following his discharge from [facility] details of which are unknown. * Patient [...] pneumonia, aspiration pneumonia, heart failure, non-ST elevation PA with subsequent revascularization of the RCA with [...] today proceeded. Patient was apparently readmitted to [facility] for dehydration/hypovolemia following his discharge from [facility] details of which are unknown. * Patient [...] pneumonia, aspiration pneumonia, heart failure, non-ST elevation PA with subsequent revascularization of the RCA with [...] today proceeded. Patient was apparently readmitted to [place] [facility] ICU for dehydration/hypovolemia following his discharge from [facility] details of which are unknown. * Patient is lost approximately 50 pounds over the past year due to his acute on chronic illnesses. * Recommendations obtain chemistry panel, BNP, echocardiogram to reassess ventricular function, recommend hydration and nutritional supplementation, will follow-up in 6 months * I was in the hospital at [facility] * FRANKI HERNANDEZ is being seen for a 4 month follow-up of coronary artery disease and cardiomyopathy. * Patient ambulatory with wheeled walker. * Accompanied by daughter. * Evaluated in clinic Dr. Collins August 2021. * October 2021 hospitalized at [facility] d/t malnutrition. Had PEG removed and Corp[employer] [...] has had previous high risk non-ST elevation PA earlier this year July 2021, with subsequent revascularization of the RCA with drug-eluting stent and normalization of his LV function originally from 30 now up to 60% as measured by echo at [facility]. He has underlying peripheral vascular disease, ongoing tobacco use, COPD, history of throat cancer with PEG tube. * He underwent recent hospitalization at [facility] with significant weight loss and debility and [...] has had previous high risk non-ST elevation PA earlier this year July 2021, with subsequent revascularization of the RCA with drug-eluting stent and normalization of his LV function originally from 30 now up to 60% as measured by echo at [facility]. He has underlying peripheral vascular disease, ongoing tobacco use, COPD, history of throat cancer with PEG tube. * He underwent recent hospitalization at [facility] with significant weight loss and debility and [...] ago when he had a non-ST elevation PA associated with pneumonia, and initial ejection fraction [...] ago when he had a non-ST elevation PA associated with pneumonia, and initial ejection fraction [...] * I was in the hospital at [facility] * FRANKI HERNANDEZ is being seen [...] hospitalizations over the past 6 months at [facility] for shortness of breath, dyspnea, A-fib, dehydration with hyperkalemia. * He has known history of ASHD with ischemic cardiomyopathy with improved left ventricular function per last measurement by echo with ejection fraction up to 45 to 50%. 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 * He has chronic dyspnea from a symptomatic standpoint; we will camp counselor him on tobacco cessation for 3 to 5 minutes today; we will follow-up in 6 months with nurse practitioner with no further changes to his medical regimen at this time * FRANKI HERNANDEZ is being seen for med change, soon o/v. * Patient is a 83-year-old gentleman returns for follow-up. He has had several hospitalizations over the past 6 months at [facility] for shortness of breath, dyspnea, A-fib, dehydration with hyperkalemia. * He has known history of ASHD with ischemic cardiomyopathy with improved left ventricular function per last measurement by echo with ejection fraction up to 45 to 50%. 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 * He has chronic dyspnea from a symptomatic standpoint; we will camp counselor him on tobacco cessation for 3 to 5 minutes today; we will follow-up in 6 months with nurse practitioner with no further changes to his medical regimen at this time Reason for Referral Specialty Diagnoses / Procedures Referred By Joni mitchell Referred To Contact CT IMAGING Diagnoses Renal lesion Procedures CT KIDNEY WO/W IVCON CT ABDOMEN W & W/O CONTRAST Alissa Lackey APRN.PIE TOPPER [address] [place] [address] Ct Imaging Referral ID Status Reason Start Date Expiration Date Visits Requested Visits Authorized [id number] Pending Review Auto-Generat ed Referral 11/27/2021 12/27/2022 1 1 Specialty Diagnoses / Procedures Referred By Joni mitchell Referred To Contact MR IMAGING Diagnoses Other specified disorders of kidney and ureter Procedures MRI KIDNEY WO/W IVCON MRI ABDOMEN W/O & W/CONTRAST MATERIAL Alissa Lackey APRN.PIE TOPPER [id number] [place] [address] Mr Imaging Referral ID Status Reason Start Date Expiration Date Visits Requested Visits Authorized [id number] Authorized Auto-Generat ed Referral 12/04/2021 01/03/2023 1 1 Referral ID Status Reason Start Date Expiration Date V isits Requested Visits Authorized [id number] Closed Auto-Generate d Referral 11/27/2021 12/27/2022 1 [...] section and content) DATE CREATED AUTHOR 05/02/2018 [facility] DATE CREATED AUTHOR AUTHOR'S ORGANIZ ATION 11/09/2021 [facility] DATE CREATED AUTHOR AUTHOR'S ORGANIZ ATION 07/16/2022 [facility] DATE CREATED AUTHOR AUTHOR'S ORGANIZ ATION 10/07/2022 [facility] DATE CREATED AUTHOR AUTHOR'S ORGANIZ ATION 12/11/2022 [facility] DATE CREATED AUTHOR AUTHOR'S ORGANIZ ATION 01/02/2023 Nasir Brennan [facility] DATE CREATED AUTHOR AUTHOR'S ORGANIZ ATION 02/06/2023 [facility] DATE CREATED AUTHOR AUTHOR'S ORGANIZ ATION 02/06/2023 [employer] Comments (unrecognize d section and content) In the event this informatio n is protected by the Federal Confidentiality of Alcohol and Drug Abuse Patient Records regulations: The Federal rules restrict any use of the information to criminally investigate or prosecute any alcohol or drug abuse patient.[facility] the event this information is protected by the Federal Confidentiality of Alcohol and Drug Abuse Patient Records regulations: The Federal rules restrict any use of the information to criminally investigate or prosecute any alcohol or drug abuse patient.[facility] Hospital[facility] the event this information is protected by the Federal Confidentiality of Alcohol and Drug Abuse Patient Records regulations: The Federal rules restrict any use of the information to criminally investigate or prosecute any alcohol or drug abuse patient.[facility] Hospital[facility] the event this information is protected by the Federal Confidentiality of Alcohol and Drug Abuse Patient Records regulations: The Federal rules restrict any use of the information to criminally investigate or prosecute any alcohol or drug abuse patient.[facility] HospitalIn the event this information is protected by the Federal Confidentiality of Alcohol and Drug Abuse Patient Records regulations: The Federal rules restrict any use of the information to criminally investigate or prosecute any alcohol or drug abuse patient.[facility] HospitalIn the event this information is protected by the Federal Confidentiality of Alcohol and Drug Abuse Patient Records regulations: The Federal rules restrict any use of the information to criminally investigate or prosecute any alcohol or drug abuse patient.[facility] HospitalIn the event this information is protected by the Federal Confidentiality of Alcohol and Drug Abuse Patient Records regulations: The Federal rules restrict any use of the information to criminally investigate or prosecute any alcohol or drug abuse patient.[facility] HospitalIn the event this information is protected by the Federal Confidentiality of Alcohol and Drug Abuse Patient Records regulations: The Federal rules restrict any use of the information to criminally investigate or prosecute any alcohol or drug abuse patient.[facility] HospitalIn the event this information is protected by the Federal Confidentiality of Alcohol and Drug Abuse Patient Records regulations: The Federal rules restrict any use of the information to criminally investigate or prosecute any alcohol or drug abuse patient.[facility] HospitalIn the event this information is protected by the Federal Confidentiality of Alcohol and Drug Abuse Patient Records regulations: The Federal rules restrict any use of the information to criminally investigate or prosecute any alcohol or drug abuse patient.[facility] HospitalIn the event this information is protected by the Federal Confidentiality of Alcohol and Drug Abuse Patient Records regulations: The Federal rules restrict any use of the information to criminally investigate or prosecute any alcohol or drug abuse patient.[facility] HospitalIn the event this information is protected by the Federal Confidentiality of Alcohol and Drug Abuse Patient Records regulations: The Federal rules restrict any use of the information to criminally investigate or prosecute any alcohol or drug abuse patient.[facility] HospitalIn the event this information is protected by the Federal Confidentiality of Alcohol and Drug Abuse Patient Records regulations: The Federal rules restrict any use of the information to criminally investigate or prosecute any alcohol or drug abuse patient.[facility] HospitalIn the event this information is protected by the Federal Confidentiality of Alcohol and Drug Abuse Patient Records regulations: The Federal rules restrict any use of the information to criminally investigate or prosecute any alcohol or drug abuse patient.[facility] HospitalIn the event this information is protected by the Federal Confidentiality of Alcohol and Drug Abuse Patient Records regulations: The Federal rules restrict any use of the information to criminally investigate or prosecute any alcohol or drug abuse patient.[facility] HospitalIn the event this information is protected by the Federal Confidentiality of Alcohol and Drug Abuse Patient Records regulations: The Federal rules restrict any use of the information to criminally investigate or prosecute any alcohol or drug abuse patient.[facility] HospitalIn the event this information is protected by the Federal Confidentiality of Alcohol and Drug Abuse Patient Records regulations: The Federal rules restrict any use of the information to criminally investigate or prosecute any alcohol or drug abuse patient.[facility] the event this information is protected by the Federal Confidentiality of Alcohol and Drug Abuse Patient Records regulations: The Federal rules restrict any use of the information to criminally investigate or prosecute any alcohol or drug abuse patient.[facility] the event this information is protected by the Federal Confidentiality of Alcohol and Drug Abuse Patient Records regulations: The Federal rules restrict any use of the information to criminally investigate or prosecute any alcohol or drug abuse patient.[facility] Reason for Visit (unrecogniz ed section [...] ABDOMEN W/O & W/CONTRAST MATERIAL Alissa Lackey, FOAM RUBBER CURER.PIE TOPPER [address] [place] [address] Mr Imaging Referral ID Status Reason Start Date Expiration Date Visits Requested Visits Authorized [id number] Authorized Auto-Generat ed Referral 12/04/2021 01/03/2023 1 1 Reason Comments Established Patient Reason Comments 01/28/2022 Reason Comments Patient Update Reason Comments Medication Problem Reason Onset Date Comments Opened In Error 02/17/2022 Specialty Diagnoses / Procedures Referred By Joni t Referred To Contact CT IMAGING Diagnoses Renal lesion Procedures CT KIDNEY WO/W IVCON CT ABDOMEN W & W/O CONTRAST Alissa Lackey, FOAM RUBBER CURER.PIE TOPPER [address] [place] [address] Ct Imaging Referral ID Status Reason Start Date Expiration Date V isits Requested Visits Authorized [id number] Closed Auto-Generate d Referral 11/27/2021 12/27/2022 1 1 Care Teams (unrecognized sec tion and content) Team Status: Active Member Role Status Dates Micheal Gutiérrez MD Primary Care Provider Active Team Status: Active Member Role Status Dates Micheal Gutiérrez MD Primary Care Provider Active Shukri Francisco MD Emergency Provider Active Jean-Pierre Otero DO Admit Provider, Attending Provider Active R&D Lab Technician Relationship Specialty Start Date End Date Micheal Gutiérrez MD [address] [place] [address] PCP - General Family Practice 11/10/21 R&D Lab Technician Relationship Specialty Start Date End Date Micheal Gutiérrez MD [address] [place] [address] PCP - General Family Practice 11/10/21 R&D Lab Technician Relationship Specialty Start Date End Date Micheal Gutiérrez MD [address] [place] [id number] PCP - General Family Practice 11/10/21 R&D Lab Technician Relationship Specialty Start Date End Date Micheal Gutiérrez MD [address] [place] [id number] PCP - General Family Practice 11/10/21 R&D Lab Technician Relationship Specialty Start Date End Date Micheal Gutiérrez MD [address] [place] [id number] PCP - General Family Practice 11/10/21 R&D Lab Technician Relationship Specialty Start Date End Date Micheal Gutiérrez MD [address] [place] [id number] PCP - General Family Practice 11/10/21 R&D Lab Technician Relationship Specialty Start Date End Date Micheal Gutiérrez MD [address] [place] [id number] PCP - General Family Practice 11/10/21 R&D Lab Technician Relationship Specialty Start Date End Date Micheal Gutiérrez MD [address] [place] [id number] PCP - General Family Practice 11/10/21 R&D Lab Technician Relationship Specialty Start Date End Date iMcheal Gutiérrez MD [address] [place] [address] PCP - General Family Practice 11/10/21 R&D Lab Technician Relationship Specialty Start Date End Date Micheal Gutiérrez MD [address] [place] [address] PCP - General Family Practice 11/10/21 R&D Lab Technician Relationship Specialty Start Date End Date Micheal Gutiérrez MD [address] [place] [address] PCP - General Family Practice 11/10/21 R&D Lab Technician Relationship Specialty Start Date End Date Micheal Gutiérrez MD [address] [place] [id number] PCP - General Family Practice 11/10/21 Team Status: Inactive Member Role Status Dates Micheal Gutiérrez MD Primary Care Provider Active Dino Guzman MD Attending Provider Active R&D Lab Technician Relationship Specialty Start Date End Date Micheal Gutiérrez MD [address] [place] [id number] PCP - General Family Practice 11/10/21 R&D Lab Technician Relationship Specialty Start Date End Date Micheal Gutiérrez MD [address] [place] [id number] PCP - General Family Practice 11/10/21 R&D Lab Technician Relationship Specialty Start Date End Date Micheal Gutiérrez MD [address] [place] [id number] PCP - General Family Medicine 11/10/21 R&D Lab Technician Relationship Specialty Start Date End Date Micheal Gutiérrez MD [address] [place] [address] PCP - General Family Medicine 11/10/21 R&D Lab Technician Relationship Specialty Start Date End Date Micheal [...] BE BASED ON THE PRIMARY CLINICAL RECORDS. [facility]. provides no warranty or guarantee of the accuracy or completeness of information in this document.
[2023-05-15] MEDS: LEVOFLOXACIN IN DEXTROSE 5 % 750 MG/150 ML IV.SOLN 100 MG IV (03:21)
--- NOTE | 2023-05-15 06:40 | W.PM.TELEPN ---
Progress Note: Subjective Subjective Interval history: Pt is a 83M with PMH of Diabetes, AR in 2021 requiring intubation, Throat cancer s/p surgically resected epiglottis who has had a PEG for over 1 year due to same who presented tot he ED with complaint of Nausea, vomiting, fever, and malaise. His symptoms began 3 days prior to admission and vomiting began yesterday. His daugher who primarily cares for him held his tube feeds and then resumed his feeds today which led to more vomiting. The patient has recurrent aspiration penumonia and is on chronic treatment with Clindamycin and Doxycycline since the summer of 2022. 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 In the ED, Patient was noted to have temp 100.2, and he underwent CT Abdomen which showed no findings which might explain his vomiting, however per family he does have severe GERD and he has been coughing a lot. CT scan did show a RML consolidation. Incidentally, patient was also noted to have a liver mass and renal hypodensities on imaging. Family reports +sick contacts at home - 12 year old nephew has been sick. In the ED,he was given Rocephin and Levaquin and was placed on oxygen support for comfort. FOBT was also positive. Patient is chronically on Eliquis. Exam Narrative Exam Narrative: General: NAD HEENT: NC/AT. No nasal discharge Neck: FROM Card: RRR, No murmur Pulm: Lung with diffuse rhonchi bilaterally. No wheezes GI: Nontender. no guarding. Musculoskeletal: No Cyanosis noted. +2+ pitting edema B/L LE Neuro: Awake, somnolent. Oriented x 3 Psych: calm, cooperative Constitutional Vital Signs, click to edit/add: Last Vital Signs Temp 99.0 F 05/15/23 06:00 Pulse 85 05/15/23 06:00 Resp 24 05/15/23 06:00 BP 130/57 05/15/23 06:00 Pulse Ox 97 05/15/23 06:00 O2 Del Method Nasal Cannula 05/15/23 06:00 O2 Flow Rate 2 05/15/23 06:00 Progress Note: Objective Labs Labs: Short CBC 05/14/23 Range/Units 22:45 WBC 20.8 H (4.0-11.0) 10^3/uL Hgb 10.9 L (14.0-18.0) g/dL Hct 33.9 L (42.0-54.0) % Plt Count 450 (150-450) 10^3/uL BMP 05/14/23 22:45 Sodium 138 Potassium 4.2 Chloride 103 Carbon Dioxide 29.2 BUN 53.0 H Creatinine 1.59 H Glucose 171 H Calcium 9.6 Liver Function 05/14/23 Range/Units 22:45 Total Bilirubin 0.4 (0.2-1.0) mg/dL AST 12 L (15-37) U/L ALT 13 L (16-63) U/L Alkaline Phosphatase 135 H (46-116) U/L Albumin 2.3 L (3.4-5.0) g/dL Urine 05/15/23 Range/Units 00:15 Urine Color Yellow (YELLOW) Urine Clarity Clear (CLEAR) Urine pH 6.0 (5.0-9.0) Ur Specific [place] 1.020 (1.005-1.025) Urine Protein >=300 A (NEG/TRACE) mg/dL Urine Glucose (UA) Negative (NEGATIVE) mg/dL Progress Note: A&P Assessment and Plan (1) Vomiting: Assessment and Plan: Pt vomiting, associated with tube feeds NPo, Hold tube feeding for now Zofran PRN nausea Protonix 40mg IV Monitor response (2) Aspiration pneumonia: Assessment and Plan: Pt has had multiple episodes of aspiration pneumonia per family HX of severe GERD Tube feeds held for now CT scan shows RML infiltrate Pt received Levaquin and Rocephini in the ED Continue same (3) History of diabetes mellitus: Assessment and Plan: Lantus held due to NPO status/held tube feeds Place on sliding scale Q4 glucose checks while NPO Plan +FOBT - Hold Eliquis for now - Monitor hemoglobin - IF patient remains stable and no active bleed, resume Eliquis - SCDs for DVT ppx Telemedicine Attestation Telemedicine Attestation I conducted this encounter from [[place] via secure live, [id number] video conference with the patient, located at [facility] with [nurse]. Prior to the interview, the risks and benefits of telemedicine were discussed with the patient and verbal consent was obtained.
[2023-05-15 06:59] LABS: Basophils Absolute Auto 0.1 10^3/uL (0.0-0.1); Basophils Percent Auto 0.3 % (0.2-2.0); Eosinophils Percent Auto 0.1 % (0.9-7.0); Hemoglobin 9.7 g/dL (14.0-18.0); Immature Granulocytes Abs Auto 0.09 10^3/uL (0.00-0.03); Immature Granulocytes Pct Auto 0.5 % (0.0-0.5); Lymphocytes Percent Auto 5.4 % (20.5-60.0); Mean Corpuscular HGB Conc 31.3 g/dL (29.9-35.2); Mean Corpuscular Hemoglobin 30.9 pg (25.9-34.0); Mean Corpuscular Volume 98.7 fL (80.0-94.0); Mean Platelet Volume 9.4 fL (9.5-13.5); Monocytes Absolute Auto 1.4 10^3/uL (0.3-0.8); Monocytes Percent Auto 7.6 % (1.7-12.0); Neutrophils Absolute Auto 15.4 10^3/uL (1.4-6.5); Neutrophils Percent Auto 86.1 % (43.0-75.0); Platelet Count 329 10^3/uL (150-450); Red Blood Count 3.14 10^6/uL (4.70-6.10); White Blood Count 17.9 10^3/uL (4.0-11.0)
[2023-05-15] MEDS: MORPHINE SULFATE 2 MG/ML SYRINGE IV ×4 (07:19→21:51)
[2023-05-15 07:22] LABS: Alanine Aminotransferase 8 U/L (16-63); Albumin Globulin Ratio 0.5; Albumin Level 1.9 g/dL (3.4-5.0); Alkaline Phosphatase 125 U/L (46-116); Anion Gap 11.9; Aspartate Amino Transferase 12 U/L (15-37); BUN Creatinine Ratio 36.9; Bilirubin Total 0.3 mg/dL (0.2-1.0); Calcium 9.2 mg/dL (8.5-10.1); Carbon Dioxide 28.1 mmol/L (21.0-32.0); Chloride 105 mmol/L (98-107); Estimated GFR (African America >60 (>=60); Estimated GFR (Non-African Ame 57 (>=60); Globulin 3.9 g/dL; Glucose 130 mg/dL (74-106); Magnesium 2.1 mg/dL (1.8-2.4); Sodium 141 mmol/L (136-145); Total Protein 5.8 g/dL (6.4-8.2)
[2023-05-15 11:13] LABS: Glucometer 102 mg/dL (74-106)
--- NOTE | 2023-05-15 11:25 | P.HP_ITS ---
H&P: HPI History of Present Illness Chief complaint: Nausea/Vomiting, General Weakness Narrative: Patient presented to the emergency room with increasing altered mental status, weakness, cough, emesis. Found to have significant dehydration, altered mental status, right lower and right middle lobe pneumonia, patient admitted for workup and treatment of same Review of Systems ROS Status of ROS 10 or more systems reviewed and unremark able except as noted in history and below [facility] Medical History (Updated 05/15/23 @ 06:53 by Lidia Guerrero MD) Acute hyperkalemia ?E87.5 - Hyperkalemia (ICD-10) Acute dehydration ?E86.0 - Dehydration (ICD-10) Community acquired pneumonia ?J18.9 - Pneumonia, unspecified organism (ICD-10) History of gastrostomy tube placement History of arthritis ?Z87.39 - Personal history of other diseases of the musculoskeletal system and connective tissue (ICD-10) History of diabetes mellitus ?Z86.39 - Personal history of other endocrine, nutritional and metabolic disease (ICD-10) History of COPD ?Z87.09 - Personal history of other diseases of the respiratory system (ICD- 10) History of throat cancer ?Z85.819 - Personal history of malignant neoplasm of unspecified site of lip, oral cavity, and pharynx (ICD-10) History of NM (myocardial infarction) ?I25.2 - Old myocardial infarction (ICD-10) History of compression fracture of spine ?Z87.81 - Personal history of (healed) traumatic fracture (ICD-10) Surgical History (Updated 11/10/22 @ 12:02 by Ronnie Rosado) History of colonoscopy ?Z98.890 - Other specified postprocedural states (ICD-10) History of esophagogastroduodenoscopy (EGD) ?Z98.890 - Other specified postprocedural states (ICD-10) History of heart artery stent ?Z95.5 - Presence of coronary angioplasty implant and graft (ICD-10) Social History (Updated 05/15/23 @ 02:42 by Arturo Oliveros) Within the past year, how often did you have a drink containing alcohol: never Score interpretation: A score less than 4 is consistent with normal alcohol consumption. Smoking status: Current every day smoker Nicotine containing products detail: 66 1 pack per day Non-prescribed substance use: denies use Previous occupational history: retired Highest level of school completed/degree received: high school graduate Are you now , , , , never or living with a partner: In a typical week, how many times do you talk on the telephone with family, friends, or neighbors: 3 or more times per week How often do you get together with friends or relatives: 3 or more times per week How often do you attend anabaptism or sikh services: never Do you belong to any clubs or organizations such as anabaptism groups unions, [place] or athletic groups, or school groups: no Total score: 2 Score interpretation: A score of greater than or equal to 2 indicates the lowest level of social isolation. Little interest or pleasure in doing things: several days Feeling down, depressed, or hopeless: several days Feel stressed/tense/nervous/anxious/difficulty sleeping: not at all Do you think of yourself as: straight/heterosexual Gender Identity: male Meds Home Medications and Allergies Home Medications Medication Instructions Recorded Confirmed Type albuterol sulfate 90 mcg/actuation 1 inh inhalation Q4H PRN shortness 11/10/22 05/15/23 History aerosol inhaler (ProAir HFA) of breath or wheezing apixaban 2.5 mg tablet (Eliquis) 2.5 mg PO BID 11/10/22 05/15/23 History finasteride 5 mg tablet 5 mg PO DAILY 11/10/22 05/15/23 History hydrocodone 10 mg-acetaminophen 1 tab PO Q4H PRN pain 11/10/22 05/15/23 History 325 mg tablet insulin glargine 100 unit/mL (3 30 unit subcut DAILY 11/10/22 05/15/23 History mL) subcutaneous pen (Lantus Solostar U-100 Insulin) levothyroxine 75 mcg capsule 75 mcg PO DAILY 11/10/22 05/15/23 History pantoprazole 40 mg tablet,delayed 40 mg PO DAILY 11/10/22 05/15/23 History release atorvastatin 20 mg tablet (Lipitor) 20 mg PO QPM 12/07/22 05/15/23 History carvedilol 12.5 mg tablet 12.5 mg PO BID 12/07/22 05/15/23 History calcitonin (salmon) 200 1 spray intranasal (ALT) QDAY 12/18/22 05/15/23 History unit/actuation nasal spray ondansetron 4 mg disintegrating 4 mg PO QID PRN nausea and vomiting 12/18/22 05/15/23 History tablet water for irrigation, sterile 250 ml G-tube TID 30 days #6,000 mL 12/23/22 05/15/23 Rx Glucerna 300 ml G-tube BID 05/15/23 05/15/23 History albuterol sulfate 2.5 mg/3 mL 2.5 mg inhalation Q6H PRN 05/15/23 05/15/23 History (0.083 %) solution for nebulization shortness of breath or wheezing dexamethasone 4 mg tablet 4 mg PO QDAY PRN pain 05/15/23 05/15/23 History diltiazem HCl 60 mg tablet 60 mg PO BID 05/15/23 05/15/23 History (Cardizem) furosemide 20 mg tablet 20 mg PO QDAY 05/15/23 05/15/23 History Allergies Allergy/AdvReac Type Severity Reaction Status Date / Time No Known Drug Allergies Allergy Verified 05/15/23 02:42 Exam Constitutional Vital Signs, click to edit/add: Last Vital Signs Temp 99.0 F 05/15/23 06:00 Pulse 88 05/15/23 08:00 Resp 16 05/15/23 08:00 BP 130/57 05/15/23 06:00 Pulse Ox 97 05/15/23 09:58 O2 Del Method Nasal Cannula 05/15/23 06:00 O2 Flow Rate 2 05/15/23 06:00 Common normals: apparent distress General appearance: ill appearing Nutritional appearance: cachectic and underweight Orientation/consciousness: Yes lethargic HENID Common normals: normocephalic Chest Common normals: inspection of chest normal Respiratory Common normals: abnormal respiratory effort Effort & inspection: non tachypneic Auscultation: rhonchi and wheezes Cardio Common normals: regular rate, regular rhythm and no murmurs GI Common normals: Normal to inspection, nondistended, normoactive bowel sounds present (PEG tube in place) Results Labs Labs: Short CBC 05/14/23 05/15/23 Range/Units 22:45 06:50 WBC 20.8 H 17.9 H (4.0-11.0) 10^3/uL Hgb 10.9 L 9.7 L (14.0-18.0) g/dL Hct 33.9 L 31.0 L (42.0-54.0) % Plt Count 450 329 (150-450) 10^3/uL BMP 05/14/23 05/15/23 22:45 06:50 Sodium 138 141 Potassium 4.2 4.0 Chloride 103 105 Carbon Dioxide 29.2 28.1 BUN 53.0 H 45.0 H Creatinine 1.59 H 1.22 Glucose 171 H 130 H Calcium 9.6 9.2 Liver Function 05/14/23 05/15/23 Range/Units 22:45 06:50 Total Bilirubin 0.4 0.3 (0.2-1.0) mg/dL AST 12 L 12 L (15-37) U/L ALT 13 L 8 L (16-63) U/L Alkaline Phosphatase 135 H 125 H (46-116) U/L Albumin 2.3 L 1.9 L (3.4-5.0) g/dL Urine 05/15/23 Range/Units 00:15 Urine Color Yellow (YELLOW) Urine Clarity Clear (CLEAR) Urine pH 6.0 (5.0-9.0) Ur Specific [place] 1.020 (1.005-1.025) Urine Protein >=300 A (NEG/TRACE) mg/dL Urine Glucose (UA) Negative (NEGATIVE) mg/dL Assessment and Plan Assessment and Plan (1) Vomiting: (2) Aspiration pneumonia: (3) History of diabetes mellitus: Plan Fever, uncontrolled hypertension, leukocytosis, acute kidney injury with incre ased from baseline of 150 % resulting from right middle and right lower lobe aspiration pneumonia resulting in severe sepsis without shock -IV antibiotics, aerosols, blood and sputum cultures, will review cultures from previous and adjust antibiotics from previous sputum culture. He had a resistant Staph aureus. Possible acute UTI with leukourea and hematuria-culture pending Severe protein calorie malnutrition-adjusted feedings supplements via PEG tube. Consult to dietitian. Acute kidney injury-improved this morning. Decrease fluid rate with increase in volume from the tube feeds Iron deficiency anemia with acute blood loss-positive Hemoccult-IV Protonix, monitor daily Compression fractures with very limited pain control-IV medication as well as here, continue with orals at discharge. Sacral wound-consult to wound therapy-stage II decubitus GERD with the history of aspiration above-IV Protonix will add Reglan via PEG tube Patient was a very poor nutritional baseline and his ability to recover from this is going to be slow recovery, immune system for based on overall treatment in the past. Place patient inpatient status likely 3 to 4-day hospital stay
[2023-05-15] MEDS: GLUCERNA 1.5 CAL 237 ML LIQUID G-TUBE ×3 (13:00→21:52)
[2023-05-15] MEDS: PROSTAT 15 GM PROTEIN/100 CAL 30 ML LIQUID PACKET G-TUBE ×2 (13:00→21:52)
[2023-05-15] MEDS: PANTOPRAZOLE SODIUM 40 MG VIAL IV (13:00)
[2023-05-15] MEDS: JUVEN PACKET 1 PACKET G-TUBE ×2 (13:00→21:52)
[2023-05-15] MEDS: LINEZOLID IN DEXTROSE 5% 600 MG/300 ML PIGGYBACK 300 MG IV (13:01)
[2023-05-15] MEDS: CALCIUM CARBONATE 500 MG (200MG ELEMENTAL) TAB CHEW G-TUBE ×3 (13:01→21:52)
[2023-05-15] MEDS: 0.9 % SODIUM CHLORIDE 1,000 ML 50 ML IV (13:31)
[2023-05-15] MEDS: FLUCONAZOLE IN NACL,ISO-OSM 200 MG/100 ML PIGGYBACK 100 MG IV (16:12)
[2023-05-15] MEDS: IPRATROPIUM/ALBUTEROL SULFATE 3 ML AMPUL.NEB IH ×2 (16:23→22:54)
--- NOTE | 2023-05-15 16:28 | RESP.RT ---
Titrated down to 2L
[2023-05-15 16:35] LABS: Glucometer 218 mg/dL (74-106)
[2023-05-15] MEDS: INSULIN ASPART 300 UNIT/3 ML PEN SUBQ (17:04)
[2023-05-15 20:28] LABS: Glucometer 97 mg/dL (74-106)
[2023-05-15] MEDS: FERROUS SULFATE 325 MG TABLET G-TUBE (21:52)
[2023-05-15] MEDS: CARVEDILOL 6.25 MG TABLET G-TUBE (21:52)
[2023-05-15] MEDS: BUDESONIDE 0.5 MG/2 ML AMPULE NEB IH (22:54)
[2023-05-15] MEDS: LINEZOLID IN DEXTROSE 5% 600 MG/300 ML PIGGYBACK 150 MG IV (23:12)
[2023-05-16] VITALS (22 sets, daily range): BP systolic 142–158; BP diastolic 56–80; PULSE 61–94; RESP 18–20; TEMP 36.8–37.6; O2SAT 86–98
[2023-05-16] MEDS: MORPHINE SULFATE 2 MG/ML SYRINGE IV ×2 (01:58→06:12)
[2023-05-16] MEDS: IPRATROPIUM/ALBUTEROL SULFATE 3 ML AMPUL.NEB IH ×5 (04:05→23:54)
[2023-05-16 05:29] LABS: Basophils Percent Auto 0.2 % (0.2-2.0); Eosinophils Percent Auto 0.2 % (0.9-7.0); Hemoglobin 8.8 g/dL (14.0-18.0); Immature Granulocytes Abs Auto 0.09 10^3/uL (0.00-0.03); Immature Granulocytes Pct Auto 0.7 % (0.0-0.5); Lymphocytes Absolute Auto 0.9 10^3/uL (1.2-3.8); Lymphocytes Percent Auto 7.1 % (20.5-60.0); Mean Corpuscular HGB Conc 30.3 g/dL (29.9-35.2); Mean Corpuscular Hemoglobin 30.3 pg (25.9-34.0); Mean Platelet Volume 10.1 fL (9.5-13.5); Monocytes Absolute Auto 1.3 10^3/uL (0.3-0.8); Monocytes Percent Auto 10.7 % (1.7-12.0); Neutrophils Absolute Auto 10.2 10^3/uL (1.4-6.5); Neutrophils Percent Auto 81.1 % (43.0-75.0); Platelet Count 277 10^3/uL (150-450); Red Cell Distribution Width 13.9 % (11.0-15.0); White Blood Count 12.6 10^3/uL (4.0-11.0)
[2023-05-16 06:00] LABS: Albumin Globulin Ratio 0.5; Albumin Level 1.7 g/dL (3.4-5.0); Alkaline Phosphatase 125 U/L (46-116); Anion Gap 12.1; Aspartate Amino Transferase 13 U/L (15-37); BUN Creatinine Ratio 48.6; Bilirubin Total 0.2 mg/dL (0.2-1.0); Calcium 9.2 mg/dL (8.5-10.1); Chloride 103 mmol/L (98-107); Estimated GFR (African America >60 (>=60); Estimated GFR (Non-African Ame >60 (>=60); Globulin 3.6 g/dL; Glucose 181 mg/dL (74-106); Magnesium 1.9 mg/dL (1.8-2.4); Potassium 4.1 mmol/L (3.5-5.1); Sodium 136 mmol/L (136-145); Total Protein 5.3 g/dL (6.4-8.2)
[2023-05-16] MEDS: GLUCERNA 1.5 CAL 237 ML LIQUID G-TUBE ×5 (06:13→22:34)
[2023-05-16] MEDS: LEVOTHYROXINE SODIUM 75 MCG TABLET G-TUBE (06:13)
[2023-05-16 06:24] LABS: Alanine Aminotransferase 9 U/L (16-63)
[2023-05-16] MEDS: INSULIN ASPART 300 UNIT/3 ML PEN SUBQ ×3 (08:19→21:25)
--- NOTE | 2023-05-16 08:20 | P.PN_ITS ---
Progress Note: Subjective Subjective Interval history: Patient more awake today. Describing some left-sided rib pain. Some looser stools as well. Still with significant cough and dyspnea. Exam Constitutional Vital Signs, click to edit/add: Last Vital Signs Temp 99.6 F 05/16/23 06:00 Pulse 94 H 05/16/23 08:03 Resp 20 05/16/23 06:00 BP 158/63 H 05/16/23 06:00 Pulse Ox 96 05/16/23 06:00 O2 Del Method Nasal Cannula 05/16/23 06:00 O2 Flow Rate 2 05/16/23 06:00 Common normals: apparent distress General appearance: ill appearing Nutritional appearance: cachectic and underweight Orientation/consciousness: Yes lethargic HENMT Common normals: normocephalic Chest Common normals: inspection of chest normal Respiratory Common normals: abnormal respiratory effort Effort & inspection: non tachypneic Auscultation: rhonchi, wheezes (Just had breathing treatment 2 hours ago) and egophony right lower Cardio Common normals: regular rate, regular rhythm and no murmurs GI Common normals: Normal to inspection, nondistended, normoactive bowel sounds present (PEG tube in place) Progress Note: Objective Labs Labs: Short CBC 05/16/23 Range/Units 04:54 WBC 12.6 H (4.0-11.0) 10^3/uL Hgb 8.8 L (14.0-18.0) g/dL Hct 29.0 L (42.0-54.0) % Plt Count 277 (150-450) 10^3/uL BMP 05/16/23 04:54 Sodium 136 Potassium 4.1 Chloride 103 Carbon Dioxide 25.0 BUN 53.0 H Creatinine 1.09 Glucose 181 H Calcium 9.2 Liver Function 05/16/23 Range/Units 04:54 Total Bilirubin 0.2 (0.2-1.0) mg/dL AST 13 L (15-37) U/L ALT 9 L (16-63) U/L Alkaline Phosphatase 125 H (46-116) U/L Albumin 1.7 L (3.4-5.0) g/dL Progress Note: A&P Assessment and Plan (1) Vomiting: (2) Aspiration pneumonia: (3) History of diabetes mellitus: Plan Fever, uncontrolled hypertension, leukocytosis, acute kidney injury with increased from baseline of 150 % resulting from right middle and right lower lobe aspiration pneumonia resulting in severe sepsis without shock with acute exacerbation of COPD -IV antibiotics, aerosols, blood and sputum cultures, will review cultures from previous and adjust antibiotics from previous sputum culture. He had a resistant Staph aureus. Continue with current care, white blood cell count continues to improve Possible acute UTI with leukourea and hematuria-culture pending-culture result should be back tomorrow Severe protein calorie malnutrition-adjusted feedings supplements via PEG tube. Consult to dietitian.-Will change patient to bolus feeding today. Tolerated continuous feeds without emesis, does have some diarrhea today, check stool s tudies but could be related to increased nutritional supplementation Acute kidney injury-BUN still elevated but creatinine back to baseline. Iron deficiency anemia with acute blood loss-positive Hemoccult-IV Protonix, monitor daily Compression fractures with very limited pain control-adjust the pain medications back to his baseline of every 4 hours at home Sacral wound-consult to wound therapy-stage II decubitus GERD with the history of aspiration above-IV Protonix-consider Reglan as an outpatient, interaction with IV antibiotics currently Atrial fibrillation-currently holding anticoagulation secondary to the GI blood loss, likely that has improved so restart anticoagulation tomorrow Hypomagnesemia-supplement stable labs Coronary artery disease with a history of chronic congestive heart failure-no c hest pain or shortness of breath and high-sensitivity troponin negative on admission, with giving fluids will check BNP in a.m. Hypothyroidism-continue with supplementation Patient was a very poor nutritional baseline and his ability to recover from this is going to be slow recovery, immune system poor based on overall treatment in the past. Place patient inpatient status likely 3 to 4-day hospital stay
[2023-05-16] MEDS: CALCITONIN,SALMON,SYNTHETIC 30 SPRAY/3.7 ML BOTTLE NOSTRIL-B (09:08)
[2023-05-16] MEDS: HYDROCODONE/ACET 10-325 MG TABLET 1 TAB PO ×3 (09:08→21:26)
[2023-05-16] MEDS: JUVEN PACKET 1 PACKET G-TUBE ×2 (09:08→22:06)
[2023-05-16] MEDS: INSULIN DETEMIR 300 UNIT/3 ML INSULN.PEN 30 UNIT SUBQ (09:09)
[2023-05-16] MEDS: PROSTAT 15 GM PROTEIN/100 CAL 30 ML LIQUID PACKET G-TUBE ×2 (09:09→22:06)
[2023-05-16] MEDS: CALCIUM CARBONATE 500 MG (200MG ELEMENTAL) TAB CHEW G-TUBE ×4 (09:09→21:25)
[2023-05-16 10:09] LABS: Adenovirus F 40/41 NOT DETECTED (NOT DETECTE); Astrovirus NOT DETECTED (NOT DETECTE); Campylobacter NOT DETECTED (NOT DETECTE); Cryptosporidium NOT DETECTED (NOT DETECTE); Cyclospora cayetanensis NOT DETECTED (NOT DETECTE); Entamoeba histolytica NOT DETECTED (NOT DETECTE); Enteroaggregative E.coli NOT DETECTED (NOT DETECTE); Enteropathogenic E.coli NOT DETECTED (NOT DETECTE); Enterotoxigenic E. coli NOT DETECTED (NOT DETECTE); Giardia lamblia NOT DETECTED (NOT DETECTE); Norovirus GI/GII NOT DETECTED (NOT DETECTE); Plesiomonas shigelloides NOT DETECTED (NOT DETECTE); Rotavirus A NOT DETECTED (NOT DETECTE); Salmonella NOT DETECTED (NOT DETECTE); Sapovirus NOT DETECTED (NOT DETECTE); Shiga-like toxin-producing E.C NOT DETECTED (NOT DETECTE); Shigella/Enteroinvasive E.coli NOT DETECTED (NOT DETECTE); Vibrio NOT DETECTED (NOT DETECTE); Vibrio cholerae NOT DETECTED (NOT DETECTE); Yersinia enterocolitica NOT DETECTED (NOT DETECTE)
[2023-05-16] MEDS: BUDESONIDE 0.5 MG/2 ML AMPULE NEB IH ×2 (11:13→23:54)
[2023-05-16] MEDS: METHYLPREDNISOLONE SOD SUCC PF 125 MG/2 ML VIAL 60 MG IVP ×2 (11:16→18:24)
[2023-05-16] MEDS: CARVEDILOL 6.25 MG TABLET G-TUBE ×2 (11:16→21:26)
[2023-05-16 11:17] LABS: Glucometer 149 mg/dL (74-106)
[2023-05-16] MEDS: LINEZOLID IN DEXTROSE 5% 600 MG/300 ML PIGGYBACK 300 MG IV (11:17)
[2023-05-16] MEDS: PANTOPRAZOLE SODIUM 40 MG VIAL IV (11:19)
[2023-05-16] MEDS: FINASTERIDE 5 MG TABLET PO (11:19)
--- NOTE | 2023-05-16 12:17 | PC.NURSE ---
offered pt lunch at this time. pt continues to refuse meal.
[2023-05-16] MEDS: FLUCONAZOLE IN NACL,ISO-OSM 200 MG/100 ML PIGGYBACK 100 MG IV (12:23)
[2023-05-16 16:26] LABS: Glucometer 295 mg/dL (74-106)
--- NOTE | 2023-05-16 17:59 | PC.NURSE ---
patient refused dinner at this time
[2023-05-16 19:57] LABS: Glucometer 248 mg/dL (74-106)
[2023-05-16] MEDS: FERROUS SULFATE 325 MG TABLET G-TUBE (21:26)
[2023-05-17] VITALS (22 sets, daily range): BP systolic 141–169; BP diastolic 64–67; PULSE 57–88; RESP 18–20; TEMP 36.6–36.7; O2SAT 90–97
[2023-05-17] MEDS: LINEZOLID IN DEXTROSE 5% 600 MG/300 ML PIGGYBACK 175 MG IV (00:38)
[2023-05-17] MEDS: METHYLPREDNISOLONE SOD SUCC PF 125 MG/2 ML VIAL 60 MG IVP ×3 (02:36→21:21)
[2023-05-17] MEDS: HYDROCODONE/ACET 10-325 MG TABLET 1 TAB PO ×5 (02:37→23:08)
[2023-05-17] MEDS: GLUCERNA 1.5 CAL 237 ML LIQUID G-TUBE ×5 (02:38→19:44)
[2023-05-17] MEDS: LEVOFLOXACIN IN DEXTROSE 5 % 750 MG/150 ML IV.SOLN 100 MG IV (02:38)
[2023-05-17] MEDS: IPRATROPIUM/ALBUTEROL SULFATE 3 ML AMPUL.NEB IH ×5 (03:56→23:24)
--- NOTE | 2023-05-17 05:12 | PC.NURSE ---
tape and dressing removed. Attempted to float iv back in, Iv came out. Patient bleeding profusely. 4x4 dressing and tape applied to iv site to right forearm. iv attempted times 2 without success. 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
[2023-05-17 05:36] LABS: Basophils Percent Auto 0.1 % (0.2-2.0); Hematocrit 27.9 % (42.0-54.0); Immature Granulocytes Abs Auto 0.09 10^3/uL (0.00-0.03); Immature Granulocytes Pct Auto 0.8 % (0.0-0.5); Lymphocytes Absolute Auto 0.3 10^3/uL (1.2-3.8); Mean Corpuscular HGB Conc 32.3 g/dL (29.9-35.2); Mean Corpuscular Hemoglobin 30.4 pg (25.9-34.0); Mean Corpuscular Volume 94.3 fL (80.0-94.0); Mean Platelet Volume 10.3 fL (9.5-13.5); Monocytes Absolute Auto 0.2 10^3/uL (0.3-0.8); Monocytes Percent Auto 2.1 % (1.7-12.0); Neutrophils Absolute Auto 10.5 10^3/uL (1.4-6.5); Platelet Count 284 10^3/uL (150-450); Red Blood Count 2.96 10^6/uL (4.70-6.10); Red Cell Distribution Width 13.2 % (11.0-15.0); White Blood Count 11.2 10^3/uL (4.0-11.0)
[2023-05-17 05:56] LABS: Alanine Aminotransferase 11 U/L (16-63); Albumin Globulin Ratio 0.4; Albumin Level 1.7 g/dL (3.4-5.0); Alkaline Phosphatase 159 U/L (46-116); Aspartate Amino Transferase 9 U/L (15-37); BUN Creatinine Ratio 55.8; Bilirubin Total 0.3 mg/dL (0.2-1.0); Calcium 9.3 mg/dL (8.5-10.1); Carbon Dioxide 28.2 mmol/L (21.0-32.0); Chloride 100 mmol/L (98-107); Estimated GFR (African America >60 (>=60); Estimated GFR (Non-African Ame >60 (>=60); Glucose 322 mg/dL (74-106); Potassium 4.2 mmol/L (3.5-5.1); Sodium 133 mmol/L (136-145); Total Protein 5.7 g/dL (6.4-8.2)
[2023-05-17] MEDS: CALCIUM CARBONATE 500 MG (200MG ELEMENTAL) TAB CHEW G-TUBE ×4 (07:50→21:21)
[2023-05-17] MEDS: INSULIN ASPART 300 UNIT/3 ML PEN SUBQ ×4 (07:53→22:02)
[2023-05-17] MEDS: PROSTAT 15 GM PROTEIN/100 CAL 30 ML LIQUID PACKET G-TUBE ×2 (09:58→21:21)
[2023-05-17] MEDS: ACETAMINOPHEN 500 MG TABLET 1000 MG G-TUBE (09:59)
[2023-05-17] MEDS: APIXABAN 5 MG TABLET 2.5 MG PO ×2 (10:00→21:22)
[2023-05-17] MEDS: JUVEN PACKET 1 PACKET G-TUBE ×2 (10:01→21:22)
[2023-05-17] MEDS: INSULIN DETEMIR 300 UNIT/3 ML INSULN.PEN 30 UNIT SUBQ (10:01)
[2023-05-17] MEDS: CALCITONIN,SALMON,SYNTHETIC 30 SPRAY/3.7 ML BOTTLE NOSTRIL-B (10:01)
[2023-05-17] MEDS: HYOSCYAMINE SULFATE 0.125 MG TAB.SUBL SL (10:34)
[2023-05-17] MEDS: CARVEDILOL 6.25 MG TABLET G-TUBE ×2 (10:35→21:21)
[2023-05-17] MEDS: FINASTERIDE 5 MG TABLET PO (10:35)
[2023-05-17] MEDS: PANTOPRAZOLE SODIUM 40 MG VIAL IV (11:17)
[2023-05-17 11:29] LABS: Glucometer 266 mg/dL (74-106)
[2023-05-17] MEDS: LINEZOLID IN DEXTROSE 5% 600 MG/300 ML PIGGYBACK 300 MG IV (12:06)
--- NOTE | 2023-05-17 13:23 | P.IMPN_ITS ---
Progress Note: A&P Assessment and Plan (1) Aspiration pneumonia: Assessment and Plan: Sputum culture positive for Pseudomonas. C/w Levaquin. D/c zyvox. Also growing Nilam. Likely normal garcia but in light of his presentation, not unreasonable to treat him with fluconazole. Doing better from resp point of view. on 2 L - that he uses at baseline as needed. Qualifiers: Aspiration pneumonia type: due to gastric secretions Laterality: bilateral Lung location: lower lobe of lung Qualified Code(s): J69.0 - Pneumonitis due to inhalation of food and vomit (2) History of diabetes mellitus: Assessment and Plan: Poorly controlled with hyperglycemia due to steroids. Increase Levemir to 40 units. (3) Right middle lobe pneumonia: Assessment and Plan: Due to pseudomonas. C/w Levaquin. D/c zyvox. (4) Decubitus ulcer of coccygeal region: Assessment and Plan: Does not appear infected. Wound care. (5) Back pain: Assessment and Plan: Due to multiple compression fracturs. C/w Hydrocodone . (6) COPD (chronic obstructive pulmonary disease): Onset Date: Unknown Assessment and Plan: COPD exacerbation due to aspiration PNA. Doing better. Wean off systemic steroids. C/w inhaled bronchodilators. (7) Metabolic encephalopathy: Assessment and Plan: Back to baseline. Likely due to acute illness, PNA. Monitor. (8) STACY (acute kidney injury): Assessment and Plan: Resolved (9) Hypothyroidism: Assessment and Plan: C/w levothyroxine (10) Adult failure to thrive: Assessment and Plan: On PEG tube and feeding. Poor functional status, poorly controlled pain, multiple comorobidities. Internal Medicine - PN: Subj Subjective Interval history: Seen and examined. No overnight events. Reports he has poorly controlled back pain and he is uncomfortable because of his back. Appears comfortable from resp pov Exam Constitutional Vital Signs, click to edit/add: Last Vital Signs Temp 97.9 F 05/17/23 04:56 Pulse 80 05/17/23 11:51 Resp 18 05/17/23 08:00 BP 153/67 H 05/17/23 04:56 Pulse Ox 97 05/17/23 07:33 O2 Del Method Nasal Cannula 05/17/23 07:33 O2 Flow Rate 2 05/17/23 07:33 Documenting provider has reviewed patient's vital signs: yes Common normals: no apparent distress General appearance: cooperative and frail appearing Respiratory Common normals: normal respiratory effort and no use of accessory muscles Effort & inspection: able to speak in complete sentences Auscultation: wheezes GI Common normals: Normal to inspection, nondistended, normoactive bowel sounds present Inspection: other (PEG tube in place) Extremity Common normals: no clubbing, cyanosis or edema Neuro Common normals: oriented x3 and moves all extremities Internal Medicine - PN: Obj Da Labs Labs: Laboratory Results - last 24 hr 05/16/23 05/16/23 05/17/23 16:25 19:46 04:55 WBC 11.2 H RBC 2.96 L Hgb 9.0 L Hct 27.9 L MCV 94.3 H MCH 30.4 MCHC 32.3 RDW 13.2 Plt Count 284 MPV 10.3 Neut % (Auto) 94.0 H Lymph % (Auto) 3.0 L [place] % (Auto) 2.1 Eos % (Auto) 0.0 L Baso % (Auto) 0.1 L Neut # (Auto) 10.5 H Lymph # (Auto) 0.3 L [place] # (Auto) 0.2 L Eos # (Auto) 0.0 Baso # (Auto) 0.0 Abs Immat Gran (auto) 0.09 H Imm/Tot Granulo (auto) 0.8 H Sodium 133 L Potassium 4.2 Chloride 100 Carbon Dioxide 28.2 Anion Gap 9.0 BUN 63.0 H Creatinine 1.13 Est GFR ( Amer) >60 Est GFR (Non-Af Amer) >60 BUN/Creatinine Ratio 55.8 Glucose 322 H Calcium 9.3 Total Bilirubin 0.3 AST 9 L ALT 11 L Alkaline Phosphatase 159 H NT-Pro-B Natriuret Pep 55103.0 H* Total Protein 5.7 L Albumin 1.7 L Globulin 4.0 Albumin/Globulin Ratio 0.4 POC Glucose 295 H 248 H 05/17/23 11:28 WBC RBC Hgb Hct MCV MCH MCHC RDW Plt Count MPV Neut % (Auto) Lymph % (Auto) [place] % (Auto) Eos % (Auto) Baso % (Auto) Neut # (Auto) Lymph # (Auto) [place] # (Auto) Eos # (Auto) Baso # (Auto) Abs Immat Gran (auto) Imm/Tot Granulo (auto) Sodium Potassium Chloride Carbon Dioxide Anion Gap BUN Creatinine Est GFR ( Amer) Est GFR (Non-Af Amer) BUN/Creatinine Ratio Glucose Calcium Total Bilirubin AST ALT Alkaline Phosphatase NT-Pro-B Natriuret Pep Total Protein Albumin Globulin Albumin/Globulin Ratio POC Glucose 266 H
[2023-05-17] MEDS: NICOTINE 21 MG PATCH.TD24 TD (14:34)
[2023-05-17] MEDS: FLUCONAZOLE 100 MG TABLET G-TUBE (14:35)
[2023-05-17 16:11] LABS: Glucometer 191 mg/dL (74-106)
[2023-05-17 20:17] LABS: Glucometer 173 mg/dL (74-106)
[2023-05-17] MEDS: FERROUS SULFATE 325 MG TABLET G-TUBE (21:21)
--- NOTE | 2023-05-17 23:10 | PC.NURSE ---
Patients bed alarm going off. Patient attempting to climb out of bed. When asked what he was doing he stated I'm going outside to smoke a cigarette Patient educated that he can not smoke at a hospital. He stated DR Murphy will give me special privileges . Patient told he had a nicotine patch on. Patient back in bed, call light in reach, all four bed rails up and alarm on.
[2023-05-17] MEDS: BUDESONIDE 0.5 MG/2 ML AMPULE NEB IH (23:24)
[2023-05-18] VITALS (11 sets, daily range): BP systolic 147–164; BP diastolic 57–75; PULSE 62–85; RESP 16–20; TEMP 36.3–36.8; O2SAT 90–97
[2023-05-18] MEDS: GLUCERNA 1.5 CAL 237 ML LIQUID G-TUBE ×4 (00:03→12:34)
--- NOTE | 2023-05-18 02:30 | PC.NURSE ---
Dressing to coccyx removed. Wound measured 2 cm x 2.5 cm. New duoderm applied.
--- NOTE | 2023-05-18 03:10 | PC.NURSE ---
pt. voided too small amount of urine to measure.
[2023-05-18] MEDS: HYDROCODONE/ACET 10-325 MG TABLET 1 TAB PO ×2 (03:46→08:15)
[2023-05-18] MEDS: IPRATROPIUM/ALBUTEROL SULFATE 3 ML AMPUL.NEB IH ×3 (03:50→11:30)
[2023-05-18 05:21] LABS: Basophils Percent Auto 0.1 % (0.2-2.0); Eosinophils Percent Auto 0.1 % (0.9-7.0); Hemoglobin 9.3 g/dL (14.0-18.0); Immature Granulocytes Pct Auto 1.4 % (0.0-0.5); Lymphocytes Absolute Auto 0.6 10^3/uL (1.2-3.8); Lymphocytes Percent Auto 4.4 % (20.5-60.0); Mean Corpuscular HGB Conc 32.1 g/dL (29.9-35.2); Mean Corpuscular Hemoglobin 30.5 pg (25.9-34.0); Mean Corpuscular Volume 95.1 fL (80.0-94.0); Mean Platelet Volume 10.4 fL (9.5-13.5); Monocytes Absolute Auto 0.6 10^3/uL (0.3-0.8); Monocytes Percent Auto 4.4 % (1.7-12.0); Neutrophils Percent Auto 89.6 % (43.0-75.0); Platelet Count 303 10^3/uL (150-450); Red Blood Count 3.05 10^6/uL (4.70-6.10); Red Cell Distribution Width 13.2 % (11.0-15.0); White Blood Count 14.5 10^3/uL (4.0-11.0)
[2023-05-18 05:35] LABS: Alanine Aminotransferase 9 U/L (16-63); Albumin Globulin Ratio 0.5; Albumin Level 1.9 g/dL (3.4-5.0); Alkaline Phosphatase 157 U/L (46-116); Aspartate Amino Transferase 13 U/L (15-37); BUN Creatinine Ratio 66.1; Bilirubin Total 0.2 mg/dL (0.2-1.0); Calcium 9.9 mg/dL (8.5-10.1); Carbon Dioxide 28.7 mmol/L (21.0-32.0); Chloride 102 mmol/L (98-107); Estimated GFR (African America >60 (>=60); Estimated GFR (Non-African Ame >60 (>=60); Globulin 3.6 g/dL; Glucose 173 mg/dL (74-106); Potassium 3.7 mmol/L (3.5-5.1); Sodium 136 mmol/L (136-145); Total Protein 5.5 g/dL (6.4-8.2)
[2023-05-18] MEDS: LEVOTHYROXINE SODIUM 75 MCG TABLET G-TUBE (05:44)
[2023-05-18] MEDS: METHYLPREDNISOLONE SOD SUCC PF 125 MG/2 ML VIAL 60 MG IVP (08:14)
[2023-05-18] MEDS: JUVEN PACKET 1 PACKET G-TUBE (08:14)
[2023-05-18] MEDS: PROSTAT 15 GM PROTEIN/100 CAL 30 ML LIQUID PACKET G-TUBE (08:14)
[2023-05-18] MEDS: APIXABAN 5 MG TABLET 2.5 MG PO (08:15)
[2023-05-18] MEDS: FINASTERIDE 5 MG TABLET PO (08:15)
[2023-05-18] MEDS: CALCIUM CARBONATE 500 MG (200MG ELEMENTAL) TAB CHEW G-TUBE ×2 (08:15→12:34)
[2023-05-18] MEDS: FLUCONAZOLE 100 MG TABLET G-TUBE (08:15)
[2023-05-18] MEDS: CARVEDILOL 6.25 MG TABLET G-TUBE (08:15)
[2023-05-18] MEDS: INSULIN DETEMIR 300 UNIT/3 ML INSULN.PEN 40 UNIT SUBQ (08:16)
[2023-05-18] MEDS: CALCITONIN,SALMON,SYNTHETIC 30 SPRAY/3.7 ML BOTTLE NOSTRIL-B (08:16)
[2023-05-18] MEDS: INSULIN ASPART 300 UNIT/3 ML PEN SUBQ (08:17)
--- NOTE | 2023-05-18 08:29 | CA_ITS ---
Patient Name: FRANKI VELA MR#: [id number] : 1940 Exam Date: 05/18/2023 Ordering Doctor: DR Juvenal Murphy . ECHOCARDIOGRAM REPORT PROCEDURE: CA ECHO DOPPLER COMPLETE INDICATIONS: elevated bnp COMPARISON: None. DESCRIPTION: COMPLETE ECHOCARDIOGRAM Real-time transthoracic echocardiography with 2D, M-mode, spectral and color flow Doppler performed. QUALITY: Technical quality was good. LEFT VENTRICLE: Normal chamber size. Mild concentric left ventricular hypertrophy. Global left ventricular systolic function is normal. LV EF: Estimated left ventricular ejection fraction is 65-70% DIASTOLIC: Diastolic function is indeterminate ATRIAL SEPTUM: LEFT ATRIUM: Normal chamber size. RIGHT ATRIUM: Normal chamber size. RIGHT VENTRICLE: Normal chamber size. Normal right ventricular systolic function. TRICUSPID VALVE: Normal mobility and thickness. No stenosis with trivial regurgitation. Moderate pulmonary hypertension. RVSP 50 mmHg MITRAL VALVE: Normal mobility and thickness. No evidence of mitral valve stenosis. Moderate mitral annular calcification. Trivial mitral regurgitation. AORTIC VALVE: Normal trileaflet appearance. Mildly calcified aortic valve. Normal leaflet mobility. No evidence of aortic valve stenosis. No aortic regurgitation. AORTIC ROOT: Normal diameter and appearance. PULMONIC VALVE: Normal thickness and mobility. No stenosis. Trivial regurgitation. PERICARDIUM: No evidence of pericardial effusion. IVC: Collapses with inspirations. Normal size. PLEURA: CONCLUSION: 1. Mild concentric left ventricular hypertrophy with normal systolic function. LVEF is 65 to 70%. 2. Normal right ventricular size and systolic function. 3. No significant valvular dysfunction. 4. Moderately elevated right-sided pressures. RVSP is 50 mmHg. Adult Echocardiography Procedure Report Left Ventricle LVEDD (3.7 - 5.6 cm): 5.00 cm LVESD (2.2 - 4.0 cm): 3.30 cm LVIVS thickness (0.6 - 1.2 cm): 1.21 cm LVPW thickness (0.5 - 1.0 cm): 1.28 cm e': 0.08 m/s E - e': 10.72 LVOT Max Gradient: 2.72 mm[Hg] LVOT Area (cm2): 0.82 m/s Peak Velocity (LVOT): 0.82 m/s Mean Velocity (LVOT): 0.54 m/s LVOT Diameter 2.04 cm Left Ventricular Ejection Fraction: 65-70 % Left Atrium LA Volume Index (2D A2C): 31.16 ml/m2 Left Atrium Systolic Dimension: 3.58 cm Mitral Valve MV E to A Ratio: 0.96 Mitral Valve A-Wave Peak Velocity: 0.94 m/s Mitral Valve E-Wave Peak Velocity: 0.90 m/s Right Ventricle RV Internal Diastolic Dimension: 3.35 cm Aorta AO Root Diam: 3.15 cm Ascending Ao Diam: 2.38 cm Aortic Valve AoV Area (Peak Jose): 1.90 cm2, 1.90 cm2 AoV Area (VTI): 1.65 cm2, 1.65 cm2 Peak Velocity(Antegrade Flow): 1.41 m/s Peak Gradient(Antegrade Flow): 8.01 mm[Hg] Mean Velocity(Antegrade Flow): 1.00 m/s Mean Gradient(Antegrade Flow): 4.40 mm[Hg] Velocity Time Integral: 43.32 cm Tricuspid Valve Peak Velocity (Regurgitant Flow): 3.42 m/s Pulmonic Valve Mean Gradient: 2.22 mm[Hg], 2.15 mm[Hg] Mean Velocity: 0.71 m/s, 0.70 m/s Peak Velocity: 0.91 m/s Peak Gradient: 3.47 mm[Hg], 3.21 mm[Hg] Right Atrium Right Atrium Systolic Pressure: 33.90 ml, 33.90 ml Dictated by: Aubrey Ramirez M.D. on 05/19/2023 at 14:39 Approved by: Aubrey Ramirez M.D. on 05/19/2023 at 14:43
[2023-05-18] MEDS: ZIPRASIDONE MESYLATE 20 MG, WATER FOR INJECTION,STERILE 1.2 ML IM (09:01)
--- NOTE | 2023-05-18 09:01 | P.DS_ITS ---
DS: Providers Provider Date of admission: 05/15/23 01:23 Primary care physician: Juvenal Murphy MD Consults: 05/15/23 11:14 Consult to Dietitian Routine Reason For Exam: tube feed recommendation Reason for consultation: tube feed recommendation Has provider been notified: No DS: Diagnosis Discharge Diagnosis (1) Aspiration pneumonia: Qualifiers: Aspiration pneumonia type: due to gastric secretions Laterality: maeve ateral Lung location: lower lobe of lung Qualified Code(s): J69.0 - Pneumonitis due to inhalation of food and vomit (2) History of diabetes mellitus: (3) Right middle lobe pneumonia: (4) Decubitus ulcer of coccygeal region: (5) Back pain: (6) COPD (chronic obstructive pulmonary disease): Onset Date: Unknown (7) Metabolic encephalopathy: (8) STACY (acute kidney injury): (9) Hypothyroidism: (10) Adult failure to thrive: Plan Fever, uncontrolled hypertension, leukocytosis, acute kidney injury with increased from baseline of 150 % resulting from right middle and right lower lobe aspiration pneumonia resulting in severe sepsis without shock with acute exacerbation of COPD Possible acute UTI with leukourea and hematuria Severe protein calorie malnutrition Acute kidney injury Iron deficiency anemia with acute blood loss-positive Hemoccult Compression fractures with very limited pain control Sacral wound-consult to wound therapy GERD with the history of aspiration above Atrial fibrillation-currently holding anticoagulation secondary to the GI blood loss, Hypomagnesemia Coronary artery disease with a history of chronic congestive heart failure Hypothyroidism DS: Summary Hospital Course Hospital Course: Patient presented to the emergency room and found to have Fever, uncontrolled hypertension, leukocytosis, acute kidney injury with increased from baseline of 150 % resulting from right middle and right lower lobe aspiration pneumonia resulting in severe sepsis without shock with acute exacerbation of COPD due to Pseudomonas pneumonia. Patient started on IV antibiotics for possible UTI as well. Frequent aerosol treatments, steroids. Nutritionally medications were adjusted as well. Patient improved fairly quickly over the first 48 hours but much improved over the last 24 hours. Will see how his day progresses. If continues to improve throughout the day he can be discharged home in improving condition. Medications see list. Follow-up with me in the office within the next week. Pseudomonas pneumonia is a diagnosis Patient also with acute blood loss anemia-positive occult blood-okay to resume anticoagulation tomorrow. Some mild sundowning this morning but if he is stable he may be more comfortable at home. Hopeful for discharge later today. Time Spent with Patient Time attestation: Total time spent providing and/or coordinating discharge services: Exam Constitutional Vital Signs, click to edit/add: Last Vital Signs Temp 98.2 F 05/18/23 05:24 Pulse 85 05/18/23 08:21 Resp 18 05/18/23 05:24 BP 147/57 H 05/18/23 05:24 Pulse Ox 96 05/18/23 07:21 O2 Del Method Room Air 05/18/23 07:21 O2 Flow Rate 2 05/17/23 15:54 Common normals: apparent distress General appearance: ill appearing Nutritional appearance: cachectic and underweight Orientation/consciousness: Yes lethargic HENMT Common normals: normocephalic Chest Common normals: inspection of chest normal Respiratory Common normals: normal respiratory effort Effort & inspection: non tachypneic Auscultation: rhonchi (Much improved), wheezes (Resolved) and egophony (Resolved) right lower Cardio Common normals: regular rate, regular rhythm and no murmurs GI Common normals: Normal to inspection, nondistended, normoactive bowel sounds present (PEG tube in place) DS: Data Data Completed and Pending Labs on day of discharge: Labs from last 24 hours 05/18/23 05/17/23 05/17/23 04:35 20:16 16:11 WBC 14.5 H RBC 3.05 L Hgb 9.3 L Hct 29.0 L MCV 95.1 H MCH 30.5 MCHC 32.1 RDW 13.2 Plt Count 303 MPV 10.4 Neut % (Auto) 89.6 H Lymph % (Auto) 4.4 L [place] % (Auto) 4.4 Eos % (Auto) 0.1 L Baso % (Auto) 0.1 L Neut # (Auto) 13.0 H Lymph # (Auto) 0.6 L [place] # (Auto) 0.6 Eos # (Auto) 0.0 Baso # (Auto) 0.0 Abs Immat Gran (auto) 0.20 H Imm/Tot Granulo (auto) 1.4 H Sodium 136 Potassium 3.7 Chloride 102 Carbon Dioxide 28.7 Anion Gap 9.0 BUN 72.0 H Creatinine 1.09 Est GFR ( Amer) >60 Est GFR (Non-Af Amer) >60 BUN/Creatinine Ratio 66.1 Glucose 173 H Calcium 9.9 Total Bilirubin 0.2 AST 13 L ALT 9 L Alkaline Phosphatase 157 H NT-Pro-B Natriuret Pep 70472.0 H* Total Protein 5.5 L Albumin 1.9 L Globulin 3.6 Albumin/Globulin Ratio 0.5 POC Glucose 173 H 191 H 05/17/23 11:28 WBC RBC Hgb Hct MCV MCH MCHC RDW Plt Count MPV Neut % (Auto) Lymph % (Auto) [place] % (Auto) Eos % (Auto) Baso % (Auto) Neut # (Auto) Lymph # (Auto) [place] # (Auto) Eos # (Auto) Baso # (Auto) Abs Immat Gran (auto) Imm/Tot Granulo (auto) Sodium Potassium Chloride Carbon Dioxide Anion Gap BUN Creatinine Est GFR ( Amer) Est GFR (Non-Af Amer) BUN/Creatinine Ratio Glucose Calcium Total Bilirubin AST ALT Alkaline Phosphatase NT-Pro-B Natriuret Pep Total Protein Albumin Globulin Albumin/Globulin Ratio POC Glucose 266 H Preliminary micro results at discharge 05/14/23 23:10 - Preliminary Blood NO GROWTH AT 36-48 HOURS. FINAL TO FOLLOW. 05/14/23 22:45 Blood Culture Result 1 - Preliminary Blood NO GROWTH AT 36-48 HOURS. FINAL TO FOLLOW. Discharge Plan Discharge Disposition: Home, Self-Care Condition: Serious Discharge Medications: New Glucerna Shake Liquid 1 ea G-tube Q4H Qty: 76126 11RF Rx Instructions: Need 6 bottles a day Pro-Stat Sugar Free 15 gram- 100 kcal/30 mL Liquid In Packet 1 ea G-tube BID Qty: 2880 11RF Osorio (with collagen) 7-7-1.5 gram Powder In Packet 1 packet G-tube BID Qty: 60 11RF fluconazole [Diflucan] 200 mg tablet 200 mg PO DAILY Qty: 14 0RF levofloxacin 750 mg tablet 750 mg PO DAILY 10 Days Qty: 10 0RF prednisone 10 mg tablet 50 mg PO DAILY Qty: 47 0RF Rx Instructions: 5/day for 3 days. 4/day for 3 days, 3/day for 3 days, 2/day for 3 days, 1/day for 3 days, 1/2 /day for 4 days Continued atorvastatin [Lipitor] 20 mg tablet 20 mg PO QPM Patient Comments: TAKES AT 7PM carvedilol 12.5 mg tablet 12.5 mg feeding tube QDAY Patient Comments: TAKES AT 1100 Rx Instructions: must administer with a meal/food finasteride 5 mg tablet 5 mg PO DAILY Patient Comments: TAKES AT 11 AM hydrocodone-acetaminophen 10-325 mg tablet 1 tab PO Q4H PRN (Reason: pain) insulin glargine [Lantus Solostar U-100 Insulin] 100 unit/mL (3 mL) insulin pen 30 unit SUBCUT DAILY Patient Comments: TAKES AT 1100 pantoprazole 40 mg tablet,delayed release (DR/EC) 40 mg PO DAILY Patient Comments: TAKES AT 0900 levothyroxine 75 mcg capsule 75 mcg PO DAILY Patient Comments: TAKES AT 0900 Eliquis 2.5 mg tablet 2.5 mg PO BID Patient Comments: TAKES AT 11AM, 7 PM albuterol sulfate [ProAir HFA] 90 mcg/actuation HFA aerosol inhaler 1 inh inhalation Q4H PRN (Reason: shortness of breath or wheezing) calcitonin (salmon) 200 unit/actuation spray,non-aerosol 1 spray intranasal (ALT) QDAY Patient Comments: TAKES AT 11 AM Rx Instructions: ALTERNATE NOSTRILS DAILY ondansetron 4 mg tablet,disintegrating 4 mg PO QID PRN (Reason: nausea and vomiting) Rx Instructions: PER RETAIL FILL HX - LAST FILLED 12/14/22 #30 FOR A 10 DAY SUPPLY albuterol sulfate 2.5 mg /3 mL (0.083 %) solution for nebulization 2.5 mg inhalation Q6H PRN (Reason: shortness of breath or wheezing) budesonide 0.5 mg/2 mL suspension for nebulization 0.5 mg inhalation Q12H PRN (Reason: shortness of breath or wheezing) water for irrigation, sterile Solution 120 ml G-tube TID Rx Instructions: 60 MLS WITH MEDS THEN ANOTHER 60 MLS TO FLUSH Discontinued Glucerna 600 ml G-tube BID Patient Comments: runs wide open at home Forms: Portal Instructions
--- NOTE | 2023-05-18 09:06 | XR_ITS ---
The [address] [address] Patient Name: FRANKI VELA MRN: [id number] date: 1940 Sex: M Assigned Patient Location: [facility] Current Patient Location: [facility] Accession/Order Number: [id number] Exam Date: 05/18/2023 09:26 Report Date: 05/18/2023 09:49 At the request of: MICHEAL GUTIÉRREZ Procedure: XR chest 1V EXAMINATION: XR chest 1V HISTORY: pneumonia COMPARISON: XR chest 05/14/2023 FINDINGS: LUNGS: Underexpanded lungs with moderate opacity and stranding within right lung base. Trace amount within left lung base. VASCULATURE: No increased pulmonary vasculature. PLEURA: No pneumothorax, effusion, or pleural thickening. CARDIAC: No cardiomegaly or cardiac silhouette abnormality. MEDIASTINUM: No visible mass or adenopathy. BONES: No fracture or visible bone lesion. OTHER: Negative. XR/XR chest 1V IMPRESSION: 1. Increasing moderate right basilar infiltrates suggestive of pneumonia. 2. Change in configuration, but overall persistent mild infiltrates versus atelectasis within left lung base. Electronically authenticated by: DARIAN BUTTS Date: 05/18/2023 09:49
[2023-05-18] MEDS: FLUCONAZOLE 100 MG TABLET 200 MG G-TUBE (10:24)
[2023-05-18] MEDS: FUROSEMIDE 40 MG/4 ML VIAL IVP (10:25)
[2023-05-18] MEDS: BUDESONIDE 0.5 MG/2 ML AMPULE NEB IH (11:30)
[2023-05-18] MEDS: HYOSCYAMINE SULFATE 0.125 MG TAB.SUBL SL (12:33)
[2023-05-18] MEDS: PANTOPRAZOLE SODIUM 40 MG VIAL IV (12:34)
[2023-05-18 12:52] LABS: Glucometer 138 mg/dL (74-106)
--- NOTE | 2023-05-18 14:31 | PC.NURSE ---
RN forgot to pull pts IV out, RN called daughter and they said they would take it out at home. instructed to come back to hospital if help needed
== END 2023-05-18 14:34 | disposition home or self-care (01) | DRG 871 ==
LOC: ER 05-15 00:11 → MS 05-15 01:24
PROVIDERS: Internal Medicine; Admitting Provider Family Medicine; Emergency Provider Emergency Medicine; PCP Family Medicine; Visit Provider Family Medicine
DX: A41.52 Sepsis due to Pseudomonas (principal); E43 Unspecified severe protein-calorie malnutrition; J69.0 Pneumonitis due to inhalation of food and vomit; G93.41 Metabolic encephalopathy; N17.9 Acute kidney failure, unspecified; Z68.1 Body mass index [BMI] 19.9 or less, adult; D62 Acute posthemorrhagic anemia; J44.0 Chronic obstructive pulmonary disease with (acute) lower respiratory infection; J44.1 Chronic obstructive pulmonary disease with (acute) exacerbation; R64 Cachexia; N39.0 Urinary tract infection, site not specified; F05 Delirium due to known physiological condition; M48.56XA Collapsed vertebra, not elsewhere classified, lumbar region, initial encounter for fracture; M48.54XA Collapsed vertebra, not elsewhere classified, thoracic region, initial encounter for fracture; A41.9 Sepsis, unspecified organism; R65.20 Severe sepsis without septic shock; R11.10 Vomiting, unspecified; D50.9 Iron deficiency anemia, unspecified; K21.9 Gastro-esophageal reflux disease without esophagitis; E11.65 Type 2 diabetes mellitus with hyperglycemia; T38.0X5A Adverse effect of glucocorticoids and synthetic analogues, initial encounter; R62.7 Adult failure to thrive; Z93.1 Gastrostomy status; E86.0 Dehydration; I25.2 Old myocardial infarction; F17.210 Nicotine dependence, cigarettes, uncomplicated; Z79.01 Long term (current) use of anticoagulants; Z79.4 Long term (current) use of insulin; Z79.899 Other long term (current) drug therapy; Z86.14 Personal history of Methicillin resistant Staphylococcus aureus infection; L89.152 Pressure ulcer of sacral region, stage 2; I48.91 Unspecified atrial fibrillation; E83.42 Hypomagnesemia; I25.10 Atherosclerotic heart disease of native coronary artery without angina pectoris; I50.9 Heart failure, unspecified; E03.9 Hypothyroidism, unspecified; Z85.89 Personal history of malignant neoplasm of other organs and systems; Z99.3 Dependence on wheelchair; R16.0 Hepatomegaly, not elsewhere classified; M54.9 Dorsalgia, unspecified; I11.0 Hypertensive heart disease with heart failure; Z87.01 Personal history of pneumonia (recurrent)
CPT/HCPCS: 0202U; 36415; 71045; 74176; 80053; 81001; 82948; 83605; 83690; 83735; 83880; 84484; 85025; 87040; 87070; 87086; 87106; 87150; 87186; 87205; 87493; 87507; 93005; 93306; 94640; 94667; 94668; 94761; 96361; 96365; 96366; 96367; 96368; 96372; 96375; 96376; 99285; G0328; J2020; J2930; Q3014

== ENCOUNTER 2023-05-19 15:10 | Outpatient (OUT) | payer MEDICARE, MEDICAID, SELFPAY ==
--- NOTE | 2023-05-19 15:17 | XR_ITS ---
The [address] [address] Patient Name: FRANKI VELA MRN: [id number] date: 1940 Sex: M Assigned Patient Location: [facility] Current Patient Location: Accession/Order Number: [id number] Exam Date: 05/19/2023 15:20 Report Date: 05/21/2023 06:49 At the request of: MICHEAL GUTIÉRREZ Procedure: XR thoracic spine 3V EXAMINATION: XR thoracic spine 3V HISTORY: Dorsalgia M54.9 COMPARISON: XR chest 07/30/2022, XR lumbar spine 10/05/2022 FINDINGS: BONES: Right convex curvature of thoracic spine. Mild-moderate compression fractures of T3, 7, 8, 9, 11, L1, L2. Prior vertebroplasty of L1. DISC SPACES: Multilevel mild-moderate narrowing. PARASPINOUS: Negative. No paraspinous abnormality is seen. OTHER: Negative. XR/XR thoracic spine 3V IMPRESSION: 1. Multilevel mild/moderate compression fractures of the thoracic and upper lumbar spine which appear to have progressed compared to prior studies. Electronically authenticated by: DARIAN BUTTS Date: 05/21/2023 06:49
--- NOTE | 2023-05-19 15:18 | XR_ITS ---
The [address] [address] Patient Name: FRANKI VELA MRN: [id number] date: 1940 Sex: M Assigned Patient Location: [facility] Current Patient Location: [facility] Accession/Order Number: [id number] Exam Date: 05/19/2023 15:20 Report Date: 05/21/2023 06:52 At the request of: MICHEAL GUTIÉRREZ Procedure: XR ribs RT 2V EXAMINATION: XR ribs RT 2V HISTORY: Pleurodynia R07.81 a COMPARISON: No relevant comparison available. FINDINGS: RIBS: Mildly displaced fractures of the posterior lateral right sixth, seventh, and eighth ribs. LUNGS: Moderate atelectasis versus infiltrates within right lung base. OTHER: No pneumothorax, pleural effusion, or appreciable pleural thickening. XR/XR ribs RT 2V IMPRESSION: 1. Acute, mildly displaced fractures of the posterior lateral right sixth, seventh, and eighth ribs. 2. Moderate right basilar atelectasis or infiltrates. 3. No pneumothorax or pleural effusion. Electronically authenticated by: DARIAN BUTTS Date: 05/21/2023 06:52
== END 2023-05-19 15:11 | disposition home or self-care (01) ==
LOC: RAD 15:12
PROVIDERS: PCP Family Medicine; Visit Provider Family Medicine
DX: M54.9 Dorsalgia, unspecified (principal); Z91.81 History of falling; R07.81 Pleurodynia; S22.41XA Multiple fractures of ribs, right side, initial encounter for closed fracture; S22.030A Wedge compression fracture of third thoracic vertebra, initial encounter for closed fracture; S22.060A Wedge compression fracture of T7-T8 vertebra, initial encounter for closed fracture; S22.070A Wedge compression fracture of T9-T10 vertebra, initial encounter for closed fracture; S22.080A Wedge compression fracture of T11-T12 vertebra, initial encounter for closed fracture; S32.010A Wedge compression fracture of first lumbar vertebra, initial encounter for closed fracture; S32.020A Wedge compression fracture of second lumbar vertebra, initial encounter for closed fracture
CPT/HCPCS: 71100; 72072

== ENCOUNTER 2023-05-22 18:15 | Inpatient (IN) | payer MEDICARE, MEDICAID, SELFPAY ==
[2023-05-22 18:28] VITALS: BP 123/60; PULSE 83; RESP 18; TEMP 36.3; O2SAT 90; BMI 18.8
--- OUTSIDE RECORDS SUMMARY | 2023-05-22 18:28 | XMS_ITS | CCD ---
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 Name Role Phone PHYSICIAN, DEFAULT Unavailable Unavailable PHYSICIAN, DEFAULT Unavailable Unavailable Micheal Gutiérrez Unavailable Unavailable Unavailable Micheal Gutiérrez MD Primary Care Provider [phone] Micheal Gutiérrez MD Primary Care Provider [phone] Unavailable Unavailable MD Micheal Gutiérrez Primary Care Provider [phone] MD Bret Guzmanhi Attending Provider Micheal Gutiérrez MD Primary Care Provider [phone] Micheal Gutiérrez MD Primary Care Provider [phone] MICHEAL GUTIÉRREZ Primary Care Unavailable IDRIS HAWK [...] Unavailable HOY ., DR BURTON Consulting Unavailable ATLANTA, DR YENIFER Puckett Consulting Unavailable HOY ., [...] Unavailable MD Micheal Gutiérrez Primary Care Provider [phone] MD Shukri Francisco Emergency Provider [phone] DO Jean-Pierre Otero Admit Provider DO Jean-Pierre [...] Unavailable Micheal Gutiérrez MD Primary Care Provider [phone] Lauro Collins Attending Unava robb [...] (14 sources) diphenhydrAMINE; Translations: [diphenhydrAMINE] Drug Allergy [facility] y 250 DO Work Phone: (20 sources) Ticagrelor; Translations: [Brilinta TABS] Drug Allergy 2 Shortness of Breath [facility] (9 sources) Angiotensin Converting Enzyme (Jennifer) Inhibitors; Translations: [JENNIFER Inhibitors] Allergy to drug (finding) Hypotension [facility] y 250 DO Work Phone: (1 source) Ticagrelor; Translations: [TICAGRELOR] Drug Allergy 2 [facility] Repository (5 sources) Aspirin; Translations: [Aspirin TABS] Drug Allergy Other [facility] y 250 DO Work Phone: (1 source) diphenhydrAMINE Drug Allergy 3 [facility] Repository Medications Current Medications Medication Drug [...] Comment on above: Take 1 capsule by [facility] twice daily for 7 days. spironolactone 25 [...] Comment on above: Take [address] [facility] twice daily. 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; Translations: [USP CURRNT USE ANTICOAGULANTS] Onset: 10-06-2022 Episodic Other aftercare (1 source) mine patrol (current) use of insulin; Translations: [APPLIQUER ZIGZAG CURRENT USE OF INSULIN] Onset: 10-06-2022 Episodic [...] C) (428.0) (I50.9) Coronary artery disease involving [place] coronary artery of [place] heart without angina pectoris (414.01) (I25.10) History of PTCA (V45.82) (Z98.61) Ischemic cardiomyopathy (414.8) (I25.5) Paroxysmal atrial fibrillation (427.31) (I48.0) PVD (peripheral vascular disease) (443.9) (I73.9) Hyperlipidemia (272.4) (E78.5) Diabetes mellitus (250.00) (E11.9) Current smoker (305.1) (F17.200) 1 ppd History of throat cancer (V10.02) (Z85.819) COPD (chronic obstructive pulmonary disease) (496) (J44.9) History of GA (myocardial infarction) (412) (I25.2) History of MRSA infection (V12.04) (Z86.14) Orders Body mass index (BMI) of 19.9 or less in adult Healthy Weight Tips; Status:Complete - Retrospective Authorization; Done: [id number] CHF (NYHA class II, ACC/AHA stage C), Health Maintenance, History of GA (myocardial infarction), Ischemic cardiomyopathy Renew: dilTIAZem HCl ER 60 MG Oral Capsule Extended Release 12 Hour; TAKE 0.5 CAPSULE Twice daily CHF (NYHA class II, ACC/AHA stage C), History of GA (myocardial infarction), History of PTCA Renew: Eliquis 5 MG Oral Tablet; Take 1 tablet twice daily CHF (NYHA class II, ACC/AHA stage C), Paroxysmal atrial fibrillation Renew: Carvedilol 12.5 MG Oral Tablet; TAKE 1/2 TABLET TWICE DAILY Coronary artery disease involving [place] coronary artery of [place] heart without angina pectoris, Hyperlipidemia Renew: Atorvastatin [...] we can help. You may also call [phone] NetworksNOW for free resources and assistance.; Status:Complete - Retrospective Authorization; Done: [id number] Tobacco Use Screening; Status:Complete; Done: [id number] Patient Instructions Please bring all medicines, vitamins, [...] hospitalizations over the past 6 months at [facility] for shortness of breath, dyspnea, A-fib, dehydration with hyperkalemia. He has known history of ASHD with ischemic cardiomyopathy with improved left ventricular function per last measurement by echo with ejection fraction up to 45 to 50%. 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 Cardizem SR 60 MG CP121/2 tab twice daily Carvedilol 12.5 MG Oral TabletTAKE 1/2 TABLET TWICE DAILY. Constulose [id number] in moring Eliquis 5 MG Oral TabletTake [...] 09/11/2021 9:51 (more content not included)... Normal [place] Tobacco Screening.on 023 Fall risk assessment b) One or more fall s in the last year [facility] [employer] 250 DO Work Phone: Tobacco use status [facility] a) Yes [facility] [employer] 250 DO Work Phone: Tobacco Screening. Yes [facility] Heart-Sandu marika 250 DO Work Phone: Lab Reportson 01-01-2023 Lab Reports [id number]#1.00CD:127 [facility] Lab Reports [id number]#1.00CD:127 [facility] Lab Reports [id number]#1.00CD:127 [facility] Lab Reports [id number]#1.00CD:127 [facility] Lab Reports [id number]#1.00CD:127 [facility] Lab Reports [id number]#1.00CD:127 [facility] Lab Reports [id number]#1.00CD:127 [facility] Lab Reports [id number]#1.00CD:127 [facility] Lab Reports [id number]#1.00CD:127 [facility] Lab Reports [id number]#1.00CD:127 [facility] Lab Reportson 12-21-2022 Lab Reports [id number]#1.00CD:127 [facility] Lab Reports [id number]#1.00CD:127 [facility] Lab Reports [id number]#1.00CD:127 [facility] Lab Reports [id number]#1.00CD:127 Normal [facility] Lab Reports [id number]#1.00CD:127 Normal [facility] Lab Reports [id number]#1.00CD:127 Normal [facility] Lab Reports [id number]#1.00CD:127 Normal [facility] Lab Reports [id number]#1.00CD:127 [facility] Lab Reports [id number]#1.00CD:127 Normal [facility] Lab Reports [id number]#1.00CD:127 Normal [facility] Lab Reports [id number]#1.00CD:127 Normal [facility] Basic Metabolic Panelon 11-21 Anion gap [Moles/Vol] Not performed Normal 6.0-15.0 [facility] Comment on above: Performed By: #### M G, TSH3, CBC, DIFF CBC, PT, PTT, CMP #### [facility] [address] [place] [id number] [place] Calcium [Mass/Vol] 8.7 mg/dL Normal 8.6-10.3 [facility] Comment on above: Performed By: #### M G, TSH3, CBC, DIFF CBC, PT, PTT, CMP #### [facility] [address] [place] [address] [place] Chloride [Moles/Vol] 102 mmol/L Normal 98-107 [facility] Comment on above: Performed By: #### M G, TSH3, CBC, DIFF CBC, PT, PTT, CMP #### [facility] [address] [place] [address] [place] CO2 [Moles/Vol] 27.9 mmol/L Normal 21.0-31.0 [facility] Comment on above: Performed By: #### M G, TSH3, CBC, DIFF CBC, PT, PTT, CMP #### [facility] [address] Creatinine [Mass/Vol] 0.93 mg/dL Normal 0.70-1.30 [facility] Comment on above: Performed By: #### M G, TSH3, CBC, DIFF CBC, PT, PTT, CMP #### [facility] [address] [place] [address] [place] Creatinine Clr Calc Pharmacy 55.82 [facility] Comment on above: Performed By: #### M G, TSH3, CBC, DIFF CBC, PT, PTT, CMP #### [facility] [address] [place] [address] [place] GFR/1.73 sq M.predicted MDRD (S/P/Bld) [Vol rate/Area] mL/min/{1.73_m2} [facility] Comment on above: Performed By: #### M G, TSH3, CBC, DIFF CBC, PT, PTT, CMP #### [facility] [address] Glucose [Mass/Vol] 173 mg/dL Significant change up 70-100 [facility] Comment on above: Result Comment: [facility] Glucose Reference Range is dependent on time and content of last meal. Glucose of more than 200 mg/dL in a nonstressed, ambulatory subject supports the diagnosis of Diabetes Mellitus. ADA recommended reference range Performed By: #### M G, TSH3, CBC, DIFF CBC, PT, PTT, CMP #### [facility] [address] Potassium Normal 3.5-5.1 [facility] Comment on above: Result Comment: Spec imen hemolyzed, redraw requested Performed By: #### M G, TSH3, CBC, DIFF CBC, PT, PTT, CMP #### [facility] [address] Sodium [Moles/Vol] 136 mmol/L Normal 136-145 [facility] Comment on above: Performed By: #### M G, TSH3, CBC, DIFF CBC, PT, PTT, CMP #### [facility] [address] [place] [address] Urea nitrogen [Mass/Vol] 47 mg/dL High 7-25 [facility] Comment on above: Performed By: #### M G, TSH3, CBC, DIFF CBC, PT, PTT, CMP #### [facility] [address] [place] [address] [place] Diff and CBCon 11-30-2022 Basophils/100 WBC (Bld) 0 % Normal 0-2 [facility] Comment on above: Performed By: #### M G, TSH3, CBC, DIFF CBC, PT, PTT, CMP #### [address] Eosinophils/100 WBC (Bld) 0 % Low 1-3 [facility] Comment on above: Performed By: #### M G, TSH3, CBC, DIFF CBC, PT, PTT, CMP #### [address] Erythrocyte distribution width (RBC) [Ratio] 13.4 % Normal 12.0-14.8 [facility] Comment on above: Performed By: #### M G, TSH3, CBC, DIFF CBC, PT, PTT, CMP #### [address] Hematocrit (Bld) [Volume fraction] 33.4 % Low 38.8-50.0 [facility] Comment on above: Performed By: #### M G, TSH3, CBC, DIFF CBC, PT, PTT, CMP #### [address] Hemoglobin (Bld) [Mass/Vol] 11.3 g/dL Low 13.0-17.0 [facility] Comment on above: Performed By: #### M G, TSH3, CBC, DIFF CBC, PT, PTT, CMP #### [place] [address] [place] Lymphocytes/100 WBC (Bld) 13 % Low 18-42 [facility] Comment on above: Performed By: #### M G, TSH3, CBC, DIFF CBC, PT, PTT, CMP #### [address] MCH (RBC) [Entitic mass] 31.2 pg Normal 27.5-35.2 [facility] Comment on above: Performed By: #### M G, TSH3, CBC, DIFF CBC, PT, PTT, CMP #### [address] MCV (RBC) [Entitic vol] 92.4 fL Normal 83.5-101 [facility] Comment on above: Performed By: #### M G, TSH3, CBC, DIFF CBC, PT, PTT, CMP #### [address] Mean Corpuscular HGB Conc 33.7 g/dL Normal 32.5-35.6 [facility] Comment on above: Performed By: #### M G, TSH3, CBC, DIFF CBC, PT, PTT, CMP #### [address] Microcytosis Slight Normal [facility] Comment on above: Performed By: #### M G, TSH3, CBC, DIFF CBC, PT, PTT, CMP #### [address] Monocytes/100 WBC (Bld) 5 % Normal 2-11 [facility] Comment on above: Performed By: #### M G, TSH3, CBC, DIFF CBC, PT, PTT, CMP #### [address] Ovalocytes Slight Normal [facility] Comment on above: Performed By: #### M G, TSH3, CBC, DIFF CBC, PT, PTT, CMP #### [address] Platelet Estimate Normal Normal Normal [facility] Comment on above: Result Comment: --- 11/30/22 0728 --- Plt Est previously reported as: Decreased Performed By: #### M G, TSH3, CBC, DIFF CBC, PT, PTT, CMP #### [address] Platelet mean volume (Bld) [Entitic vol] 8.7 fL Normal 6.6-10.1 [facility] Comment on above: Result Comment: PERF ORMED BY: [place] [address] PATHOLOGIST BOATBUILDER SUPERVISOR TRINA GARCIA M.D. Performed By: #### M G, TSH3, CBC, DIFF CBC, PT, PTT, CMP #### [address] Platelet Morphology Normal Normal Normal [facility] Comment on above: Result Comment: PERF ORMED BY: [place] [address] PATHOLOGIST BOATBUILDER SUPERVISOR TRINA GARCIA M.D. Performed By: #### M G, TSH3, CBC, DIFF CBC, PT, PTT, CMP #### [address] Platelets (Bld) [#/Vol] 216 10*3/uL Normal 150-450 [facility] Comment on above: Performed By: #### M G, TSH3, CBC, DIFF CBC, PT, PTT, CMP #### [address] RBC (Bld) [#/Vol] 3.61 10*6/uL Low 3.90-5.60 [facility] Comment on above: Performed By: #### M G, TSH3, CBC, DIFF CBC, PT, PTT, CMP #### [address] Schistocytes Slight Normal [facility] Comment on above: Performed By: #### M G, TSH3, CBC, DIFF CBC, PT, PTT, CMP #### [address] Segmented neutrophils/100 WBC (Bld) 82 % High 50-70 [facility] Comment on above: Performed By: #### M G, TSH3, CBC, DIFF CBC, PT, PTT, CMP #### [address] WBC (Bld) [#/Vol] 13.3 10*3/uL High 4.1-10.5 [facility] Comment on above: Performed By: #### M G, TSH3, CBC, DIFF CBC, PT, PTT, CMP #### [facility] [address] Magnesiumon 11-30-2022 Magnesium [Mass/Vol] 2.1 mg/dL Normal 1.9-2.7 [facility] Comment on above: Result Comment: PERF ORMED BY: [place] [address] PATHOLOGIST BOATBUILDER SUPERVISOR TRINA GARCIA M.D. Performed By: #### M G, TSH3, CBC, DIFF CBC, PT, PTT, CMP #### [address] Redraw Potassiumon Potassium [Moles/Vol] 4.5 mmol/L Normal 3.5-5.1 [facility] Comment on above: Order Comment: SPECI MEN HEMOLYZED, NOTIFIED HERMELINDA Result Comment: PERF ORMED BY: [place] [address] PATHOLOGIST BOATBUILDER SUPERVISOR TRINA GARCIA M.D. Performed By: #### M G, TSH3, CBC, DIFF CBC, PT, PTT, CMP #### [address] B-Type Natriuretic Peptideon 11-29-2022 Natriuretic peptide B (Bld) [Mass/Vol] 213.0 pg/mL High 5-100 [facility] Comment on above: Result Comment: PERF ORMED BY: [place] [address] PATHOLOGIST BOATBUILDER SUPERVISOR TRINA GARCIA M.D. Performed By: #### M G, TSH3, CBC, DIFF CBC, PT, PTT, CMP #### [facility] [address] Basic Metabolic Panelon 07-0 Anion gap [Moles/Vol] 9.3 mmol/L Normal 6.0-15.0 [facility] Comment on above: Performed By: #### M G, TSH3, CBC, DIFF CBC, PT, PTT, CMP #### [facility] [address] Calcium [Mass/Vol] 8.9 mg/dL Normal 8.6-10.3 [facility] Comment on above: Performed By: #### M G, TSH3, CBC, DIFF CBC, PT, PTT, CMP #### [facility] [address] Chloride [Moles/Vol] 103 mmol/L Normal 98-107 [facility] Comment on above: Performed By: #### M G, TSH3, CBC, DIFF CBC, PT, PTT, CMP #### [facility] [address] CO2 [Moles/Vol] 28.1 mmol/L Normal 21.0-31.0 [facility] Comment on above: Performed By: #### M G, TSH3, CBC, DIFF CBC, PT, PTT, CMP #### [facility] [address] Creatinine [Mass/Vol] 0.91 mg/dL Normal 0.70-1.30 [facility] Comment on above: Performed By: #### M G, TSH3, CBC, DIFF CBC, PT, PTT, CMP #### [facility] [address] Creatinine Clr Calc Pharmacy 57.05 [facility] Comment on above: Performed By: #### M G, TSH3, CBC, DIFF CBC, PT, PTT, CMP #### [facility] [address] [place] [address] [place] GFR/1.73 sq M.predicted MDRD (S/P/Bld) [Vol rate/Area] mL/min/{1.73_m2} [facility] Comment on above: Performed By: #### M G, TSH3, CBC, DIFF CBC, PT, PTT, CMP #### [address] Glucose [Mass/Vol] 293 mg/dL High 70-100 [facility] Comment on above: Result Comment: [place] Glucose Reference Range is dependent on time and content of last meal. Glucose of more than 200 mg/dL in a nonstressed, ambulatory subject supports the diagnosis of Diabetes Mellitus. ADA recommended reference range Performed By: #### M G, TSH3, CBC, DIFF CBC, PT, PTT, CMP #### [address] Potassium [Moles/Vol] 4.4 mmol/L Normal 3.5-5.1 [facility] Comment on above: Performed By: #### M G, TSH3, CBC, DIFF CBC, PT, PTT, CMP #### [address] Sodium [Moles/Vol] 136 mmol/L Normal 136-145 [facility] Comment on above: Performed By: #### M G, TSH3, CBC, DIFF CBC, PT, PTT, CMP #### [address] Urea nitrogen [Mass/Vol] 41 mg/dL High 7-25 [facility] Comment on above: Performed By: #### M G, TSH3, CBC, DIFF CBC, PT, PTT, CMP #### [address] Complete Blood Count Auto Di ffon 11-29-2022 Basophils (Bld) [#/Vol] 0.0 10*3/uL Normal 0.0-0.2 [facility] Comment on above: Result Comment: PERF ORMED BY: [place] [address] PATHOLOGIST BOATBUILDER SUPERVISOR TRINA GARCIA M.D. Performed By: #### M G, TSH3, CBC, DIFF CBC, PT, PTT, CMP #### [address] Basophils/100 WBC (Bld) 0.1 % Normal . [facility] Comment on above: Performed By: #### M G, TSH3, CBC, DIFF CBC, PT, PTT, CMP #### [address] Eosinophils (Bld) [#/Vol] 0.0 10*3/uL Normal 0.0-0.45 [facility] Comment on above: Performed By: #### M G, TSH3, CBC, DIFF CBC, PT, PTT, CMP #### [address] Eosinophils/100 WBC (Bld) 0.0 % Normal . [facility] Comment on above: Performed By: #### M G, TSH3, CBC, DIFF CBC, PT, PTT, CMP #### [address] Erythrocyte distribution width (RBC) [Ratio] 13.3 % Normal 12.0-14.8 [facility] Comment on above: Performed By: #### M G, TSH3, CBC, DIFF CBC, PT, PTT, CMP #### [address] Hematocrit (Bld) [Volume fraction] 34.5 % Low 38.8-50.0 [facility] Comment on above: Performed By: #### M G, TSH3, CBC, DIFF CBC, PT, PTT, CMP #### [address] Hemoglobin (Bld) [Mass/Vol] 11.6 g/dL Low 13.0-17.0 [facility] Comment on above: Performed By: #### M G, TSH3, CBC, DIFF CBC, PT, PTT, CMP #### [address] Lymphocytes (Bld) [#/Vol] 0.6 10*3/uL Low 1.00-4.8 [facility] Comment on above: Performed By: #### M G, TSH3, CBC, DIFF CBC, PT, PTT, CMP #### [address] Lymphocytes/100 WBC (Bld) 4.1 % Normal . [facility] Comment on above: Performed By: #### M G, TSH3, CBC, DIFF CBC, PT, PTT, CMP #### [address] MCH (RBC) [Entitic mass] 31.0 pg Normal 27.5-35.2 [facility] Comment on above: Performed By: #### M G, TSH3, CBC, DIFF CBC, PT, PTT, CMP #### [address] MCV (RBC) [Entitic vol] 92.6 fL Normal 83.5-101 [facility] Comment on above: Performed By: #### M G, TSH3, CBC, DIFF CBC, PT, PTT, CMP #### [address] Mean Corpuscular HGB Conc 33.5 g/dL Normal 32.5-35.6 [facility] Comment on above: Performed By: #### M G, TSH3, CBC, DIFF CBC, PT, PTT, CMP #### [address] Monocytes (Bld) [#/Vol] 0.7 10*3/uL Normal 0.0-0.8 [facility] Comment on above: Performed By: #### M G, TSH3, CBC, DIFF CBC, PT, PTT, CMP #### [address] Monocytes/100 WBC (Bld) 4.8 % Normal . [facility] Comment on above: Performed By: #### M G, TSH3, CBC, DIFF CBC, PT, PTT, CMP #### [address] Neutrophils (Bld) [#/Vol] 13.2 10*3/uL High 1.8-7.7 [facility] Comment on above: Performed By: #### M G, TSH3, CBC, DIFF CBC, PT, PTT, CMP #### [address] Neutrophils/100 WBC (Bld) 91.0 % Normal . [facility] Comment on above: Performed By: #### M G, TSH3, CBC, DIFF CBC, PT, PTT, CMP #### [address] NRBC% 0.0 /100{WBC} Normal 0-0.5 [facility] Comment on above: Performed By: #### M G, TSH3, CBC, DIFF CBC, PT, PTT, CMP #### [address] Platelet mean volume (Bld) [Entitic vol] 8.4 fL Normal 6.6-10.1 [facility] Comment on above: Performed By: #### M G, TSH3, CBC, DIFF CBC, PT, PTT, CMP #### [address] Platelets (Bld) [#/Vol] 219 10*3/uL Normal 150-450 [facility] Comment on above: Performed By: #### M G, TSH3, CBC, DIFF CBC, PT, PTT, CMP #### [address] RBC (Bld) [#/Vol] 3.72 10*6/uL Low 3.90-5.60 [facility] Comment on above: Performed By: #### M G, TSH3, CBC, DIFF CBC, PT, PTT, CMP #### [address] WBC (Bld) [#/Vol] 14.5 10*3/uL High 4.1-10.5 [facility] Comment on above: Performed By: #### M G, TSH3, CBC, DIFF CBC, PT, PTT, CMP #### [address] Magnesiumon 11-29-2022 Magnesium [Mass/Vol] 2.0 mg/dL Normal 1.9-2.7 [facility] Comment on above: Result Comment: PERF ORMED BY: [place] [id number] PATHOLOGIST BOATBUILDER SUPERVISOR TRINA GARCIA M.D. Performed By: #### M G, TSH3, CBC, DIFF CBC, PT, PTT, CMP #### [place] [id number] [facility] Glucose Poct Glucometerson 0 11-28-2022 Commemt1 Glu2: Cleaned Meter Normal [facility] Comment on above: Result Comment: PERF ORMED BY: [place] [address] PATHOLOGIST BOATBUILDER SUPERVISOR TRIAN GARCIA M.D. Performed By: #### M G, TSH3, CBC, DIFF CBC, PT, PTT, CMP #### [place] [id number] [facility] Glucose [Mass/Vol] 392 mg/dL Normal [facility] Comment on above: Result Comment: [facility] Glucose Reference Range is dependent on time and content of last meal. Glucose of more than 200 mg/dL in a nonstressed, ambulatory subject supports the diagnosis of Diabetes Mellitus. Performed By: #### M G, TSH3, CBC, DIFF CBC, PT, PTT, CMP #### [address] [address] [facility] Glucose [Mass/Vol] 222 mg/dL Normal [facility] Comment on above: Result Comment: [facility] Glucose Reference Range is dependent on time and content of last meal. Glucose of more than 200 mg/dL in a nonstressed, ambulatory subject supports the diagnosis of Diabetes Mellitus. PERFORMED BY: HENRY [place] [id number] PATHOLOGIST BOATBUILDER SUPERVISOR TRINA GARCIA M.D. Performed By: #### M G, TSH3, CBC, DIFF CBC, PT, PTT, CMP #### [place] [id number] [facility] Glucose [Mass/Vol] 322 mg/dL Normal [facility] Comment on above: Result Comment: [facility] Glucose Reference Range is dependent on time and content of last meal. Glucose of more than 200 mg/dL in a nonstressed, ambulatory subject supports the diagnosis of Diabetes Mellitus. PERFORMED BY: [place] [address] PATHOLOGIST BOATBUILDER SUPERVISOR TRINA GARCIA M.D. Performed By: #### M G, TSH3, CBC, DIFF CBC, PT, PTT, CMP #### [address] Basic Metabolic Panelon 070 Anion gap [Moles/Vol] 8.6 mmol/L Normal 6.0-15.0 [facility] Comment on above: Performed By: #### M G, TSH3, CBC, DIFF CBC, PT, PTT, CMP #### [address] Calcium [Mass/Vol] 8.3 mg/dL Low 8.6-10.3 [facility] Comment on above: Performed By: #### M G, TSH3, CBC, DIFF CBC, PT, PTT, CMP #### [address] Chloride [Moles/Vol] 105 mmol/L Normal 98-107 [facility] Comment on above: Performed By: #### M G, TSH3, CBC, DIFF CBC, PT, PTT, CMP #### [address] CO2 [Moles/Vol] 26.9 mmol/L Normal 21.0-31.0 [facility] Comment on above: Performed By: #### M G, TSH3, CBC, DIFF CBC, PT, PTT, CMP #### [address] Creatinine [Mass/Vol] 1.19 mg/dL Normal 0.70-1.30 [facility] Comment on above: Performed By: #### M G, TSH3, CBC, DIFF CBC, PT, PTT, CMP #### [facility] [address] [place] [address] [place] Creatinine Clr Calc Pharmacy 42.72 [facility] Comment on above: Result Comment: PERF ORMED BY: [place] [address] PATHOLOGIST BOATBUILDER SUPERVISOR TRINA GARCIA M.D. Performed By: #### M G, TSH3, CBC, DIFF CBC, PT, PTT, CMP #### [facility] [address] GFR/1.73 sq M.predicted MDRD (S/P/Bld) [Vol rate/Area] mL/min/{1.73_m2} [facility] Comment on above: Performed By: #### M G, TSH3, CBC, DIFF CBC, PT, PTT, CMP #### [facility] [address] Glucose [Mass/Vol] 102 mg/dL High 70-100 [facility] Comment on above: Result Comment: [facility] Glucose Reference Range is dependent on time and content of last meal. Glucose of more than 200 mg/dL in a nonstressed, ambulatory subject supports the diagnosis of Diabetes Mellitus. ADA recommended reference range Performed By: #### M G, TSH3, CBC, DIFF CBC, PT, PTT, CMP #### [facility] [address] Potassium [Moles/Vol] 4.5 mmol/L Normal 3.5-5.1 [facility] Comment on above: Performed By: #### M G, TSH3, CBC, DIFF CBC, PT, PTT, CMP #### [facility] [address] [place] [address] [place] Sodium [Moles/Vol] 136 mmol/L Significant change down 136-145 [facility] Comment on above: Performed By: #### M G, TSH3, CBC, DIFF CBC, PT, PTT, CMP #### [facility] [address] [place] [address] [place] Urea nitrogen [Mass/Vol] 50 mg/dL High 7-25 [facility] Comment on above: Performed By: #### M G, TSH3, CBC, DIFF CBC, PT, PTT, CMP #### [address] Complete Blood Count Auto Di ffon 11-27-2022 Basophils (Bld) [#/Vol] 0.0 10*3/uL Normal 0.0-0.2 [facility] Comment on above: Result Comment: PERF ORMED BY: [place] [address] PATHOLOGIST BOATBUILDER SUPERVISOR TRINA GARCIA M.D. Performed By: #### M G, TSH3, CBC, DIFF CBC, PT, PTT, CMP #### [address] Basophils/100 WBC (Bld) 0.1 % Normal . [facility] Comment on above: Performed By: #### M G, TSH3, CBC, DIFF CBC, PT, PTT, CMP #### [address] Eosinophils (Bld) [#/Vol] 0.0 10*3/uL Normal 0.0-0.45 [facility] Comment on above: Performed By: #### M G, TSH3, CBC, DIFF CBC, PT, PTT, CMP #### [address] Eosinophils/100 WBC (Bld) 0.0 % Normal . [facility] Comment on above: Performed By: #### M G, TSH3, CBC, DIFF CBC, PT, PTT, CMP #### [address] Erythrocyte distribution width (RBC) [Ratio] 13.7 % Normal 12.0-14.8 [facility] Comment on above: Performed By: #### M G, TSH3, CBC, DIFF CBC, PT, PTT, CMP #### [address] Hematocrit (Bld) [Volume fraction] 30.6 % Low 38.8-50.0 [facility] Comment on above: Performed By: #### M G, TSH3, CBC, DIFF CBC, PT, PTT, CMP #### [address] Hemoglobin (Bld) [Mass/Vol] 10.4 g/dL Low 13.0-17.0 [facility] Comment on above: Performed By: #### M G, TSH3, CBC, DIFF CBC, PT, PTT, CMP #### [address] Lymphocytes (Bld) [#/Vol] 0.7 10*3/uL Low 1.00-4.8 [facility] Comment on above: Performed By: #### M G, TSH3, CBC, DIFF CBC, PT, PTT, CMP #### [address] Lymphocytes/100 WBC (Bld) 4.1 % Normal . [facility] Comment on above: Performed By: #### M G, TSH3, CBC, DIFF CBC, PT, PTT, CMP #### [address] MCH (RBC) [Entitic mass] 31.6 pg Normal 27.5-35.2 [facility] Comment on above: Performed By: #### M G, TSH3, CBC, DIFF CBC, PT, PTT, CMP #### [address] MCV (RBC) [Entitic vol] 93.4 fL Normal 83.5-101 [facility] Comment on above: Performed By: #### M G, TSH3, CBC, DIFF CBC, PT, PTT, CMP #### [address] Mean Corpuscular HGB Conc 33.9 g/dL Normal 32.5-35.6 [facility] Comment on above: Performed By: #### M G, TSH3, CBC, DIFF CBC, PT, PTT, CMP #### [address] Monocytes (Bld) [#/Vol] 0.4 10*3/uL Normal 0.0-0.8 [facility] Comment on above: Performed By: #### M G, TSH3, CBC, DIFF CBC, PT, PTT, CMP #### [address] Monocytes/100 WBC (Bld) 2.0 % Normal . [facility] Comment on above: Performed By: #### M G, TSH3, CBC, DIFF CBC, PT, PTT, CMP #### [address] Neutrophils (Bld) [#/Vol] 16.8 10*3/uL High 1.8-7.7 [facility] Comment on above: Performed By: #### M G, TSH3, CBC, DIFF CBC, PT, PTT, CMP #### [address] Neutrophils/100 WBC (Bld) 93.8 % Normal . [facility] Comment on above: Performed By: #### M G, TSH3, CBC, DIFF CBC, PT, PTT, CMP #### [address] NRBC% 0.2 /100{WBC} Normal 0-0.5 [facility] Comment on above: Performed By: #### M G, TSH3, CBC, DIFF CBC, PT, PTT, CMP #### [address] Platelet mean volume (Bld) [Entitic vol] 8.2 fL Normal 6.6-10.1 [facility] Comment on above: Performed By: #### M G, TSH3, CBC, DIFF CBC, PT, PTT, CMP #### [place] [address] [place] Platelets (Bld) [#/Vol] 239 10*3/uL Normal 150-450 [facility] Comment on above: Performed By: #### M G, TSH3, CBC, DIFF CBC, PT, PTT, CMP #### [place] [address] [place] RBC (Bld) [#/Vol] 3.28 10*6/uL Low 3.90-5.60 [facility] Comment on above: Performed By: #### M G, TSH3, CBC, DIFF CBC, PT, PTT, CMP #### [facility] [address] [place] [address] [place] WBC (Bld) [#/Vol] 17.9 10*3/uL High 4.1-10.5 [facility] Comment on above: Performed By: #### M G, TSH3, CBC, DIFF CBC, PT, PTT, CMP #### [facility] [address] [place] [address] [facility] ECG 12 lead ECGon 11-27-2022 ECG 12 lead ECG [facility] Main [place] [address] [place] [address] Electrocardiograph Report Signed Patient: Franki Hernandez MR#: [id number] : 1940 Acct:[id number] Age/Sex: 82 / M ADM Date: 11/25/22 Loc: Room: [address] [place] [address] Type: ADM IN Attending Dr: Nelida Aquino [...] Cerda DO 11/27 1256 Normal [facility] Glucose Poct Glucometerson 0 11-27-2022 Glucose [Mass/Vol] 199 mg/dL Normal [facility] Comment on above: Result Comment: [place] [facility] Glucose Reference Range is dependent on time and content of last meal. Glucose of more than 200 mg/dL in a nonstressed, ambulatory subject supports the diagnosis of Diabetes Mellitus. PERFORMED BY: [address] [place] [address] PATHOLOGIST BOATBUILDER SUPERVISOR TRINA GARCIA M.D. Performed By: #### M G, TSH3, CBC, DIFF CBC, PT, PTT, CMP #### [place] [address] [place] Commemt1 [facility] Comment on above: Result Comment: Glu2 : WILL NOTIFY DR/RN Performed By: #### M G, TSH3, CBC, DIFF CBC, PT, PTT, CMP #### [place] [address] [place] Commemt2 Cleaned Meter Normal [facility] Comment on above: Result Comment: PERF ORMED BY: [facility] [address] [place] [address] PATHOLOGIST BOATBUILDER SUPERVISOR TRINA GARCIA M.D. Performed By: #### M G, TSH3, CBC, DIFF CBC, PT, PTT, CMP #### [place] [id number] [place] Glucose [Mass/Vol] 410 mg/dL Off scale high [facility] Comment on above: Result Comment: [place] [facility] Glucose Reference Range is dependent on time and content of last meal. Glucose of more than 200 mg/dL in a nonstressed, ambulatory subject supports the diagnosis of Diabetes Mellitus. Performed By: #### M G, TSH3, CBC, DIFF CBC, PT, PTT, CMP #### [facility] [address] [place] [address] [place] Glucose [Mass/Vol] 358 mg/dL Normal [facility] Comment on above: Result Comment: [place] [facility] Glucose Reference Range is dependent on time and content of last meal. Glucose of more than 200 mg/dL in a nonstressed, ambulatory subject supports the diagnosis of Diabetes Mellitus. PERFORMED BY: [place] [address] PATHOLOGIST BOATBUILDER SUPERVISOR TRINA GARCIA M.D. Performed By: #### M G, TSH3, CBC, DIFF CBC, PT, PTT, CMP #### [address] A1C with Estimated Average G karol 11-26-2022 Glucose [Mass/Vol] 183 mg/dL Normal [facility] Comment on above: Result Comment: PERF ORMED BY: [place] [address] PATHOLOGIST BOATBUILDER SUPERVISOR TRINA GARCIA M.D. Performed By: #### H S TROP, A1C WTH eA, SCAN CBC #### [address] HbA1c (Bld) [Mass fraction] 8.0 % High 4.3-5.6 [facility] Comment on above: Result Comment: Incr eased risk for diabetes: 5.7 - 6.4 diabetes: >6.4 glycemic control for adults with diabetes: <7.0 Performed By: #### H S TROP, A1C WTH eA, SCAN CBC #### [address] Basic Metabolic Panelon 07 Anion gap [Moles/Vol] 12.0 mmol/L Normal 6.0-15.0 [facility] Comment on above: Performed By: #### M G, TSH3, CBC, DIFF CBC, PT, PTT, CMP #### [place] [address] [place] Calcium [Mass/Vol] 8.3 mg/dL Low 8.6-10.3 [facility] Comment on above: Performed By: #### M G, TSH3, CBC, DIFF CBC, PT, PTT, CMP #### [address] Chloride [Moles/Vol] 108 mmol/L High 98-107 [facility] Comment on above: Performed By: #### M G, TSH3, CBC, DIFF CBC, PT, PTT, CMP #### [facility] [address] CO2 [Moles/Vol] 27.1 mmol/L Normal 21.0-31.0 [facility] Comment on above: Performed By: #### M G, TSH3, CBC, DIFF CBC, PT, PTT, CMP #### [facility] [address] Creatinine [Mass/Vol] 0.99 mg/dL Normal 0.70-1.30 [facility] Comment on above: Performed By: #### M G, TSH3, CBC, DIFF CBC, PT, PTT, CMP #### [address] Creatinine Clr Calc Pharmacy 47.90 [facility] Comment on above: Performed By: #### M G, TSH3, CBC, DIFF CBC, PT, PTT, CMP #### [address] GFR/1.73 sq M.predicted MDRD (S/P/Bld) [Vol rate/Area] mL/min/{1.73_m2} [facility] Comment on above: Performed By: #### M G, TSH3, CBC, DIFF CBC, PT, PTT, CMP #### [address] Glucose [Mass/Vol] 164 mg/dL Significant change up 70-100 [facility] Comment on above: Result Comment: [place] Glucose Reference Range is dependent on time and content of last meal. Glucose of more than 200 mg/dL in a nonstressed, ambulatory subject supports the diagnosis of Diabetes Mellitus. ADA recommended reference range Performed By: #### M G, TSH3, CBC, DIFF CBC, PT, PTT, CMP #### [address] Potassium [Moles/Vol] 5.1 mmol/L Normal 3.5-5.1 [facility] Comment on above: Performed By: #### M G, TSH3, CBC, DIFF CBC, PT, PTT, CMP #### [facility] [address] [place] [address] [place] Sodium [Moles/Vol] 142 mmol/L Normal 136-145 [facility] Comment on above: Performed By: #### M G, TSH3, CBC, DIFF CBC, PT, PTT, CMP #### [facility] [address] [place] [address] [place] Urea nitrogen [Mass/Vol] 37 mg/dL High - [facility] Comment on above: Performed By: #### M G, TSH3, CBC, DIFF CBC, PT, PTT, CMP #### [facility] [address] [place] [address] [facility] ECG 12 lead ECGon 11-26-2022 ECG 12 lead ECG [facility] [place] [address] Electrocardiograph Report Signed Patient: Franki Hernandez MR#: [id number] : 1940 Acct:[id number] Age/Sex: 82 / M ADM Date: 11/25/22 Loc: Room: [address] [place] [address] Type: ADM IN Attending Dr: Nelida Aquino [...] Cerda DO 11/26 1319 Normal [facility] ECG 12 lead ECG [facility] Main [place] [id number] Electrocardiograph Report Signed Patient: Franki Hernandez MR#: [id number] : 1940 Acct:[id number] Age/Sex: 82 / M ADM Date: 11/25/22 Loc: 3T Room: [address] [place] [address] Type: ADM IN Attending Dr: Nelida Aquino [...] Signed By David Cerda DO 11/27 1255 [facility] ECH echo transthoracicon [facility] echo transthoracic [facility] Main [address] [address] Echocardiogram Signed Patient: Franki Hernandez MR#: [id number] : 1940 Acct:[id number] Age/Sex: 82 / M ADM Date: 11/25/22 Loc: Room: [address] [place] [address] Type: ADM IN Attending Dr: Nelida Aquino MD Ordering Provider: Hermelinda Benitez APRN Date of Service: 11/26/2211/13/499 ECH/ECH echo transthoracic: a-fib rvr, elevated troponin Copies to: Saige Bassett MD, [facility] Hermelinda Benitez, RISK MANAGEMENT PROFESSIONAL Weight: 125 lb Performed By: JEANNA Solo [...] 11/26/22 1004 Signed By: Saige Bassett MD, [facility] 11/26/22 1704 [facility] Glucose Poct Glucometerson 0 11-26-2022 Commemt1 [facility] Comment on above: Result Comment: Glu2 : WILL NOTIFY DR/RN PERFORMED BY: [place] [address] PATHOLOGIST BOATBUILDER SUPERVISOR TRINA GARCIA M.D. Performed By: #### M G, TSH3, CBC, DIFF CBC, PT, PTT, CMP #### [address] Glucose [Mass/Vol] 477 mg/dL Off scale high [facility] Comment on above: Result Comment: [place] [facility] Glucose Reference Range is dependent on time and content of last meal. Glucose of more than 200 mg/dL in a nonstressed, ambulatory subject supports the diagnosis of Diabetes Mellitus. Performed By: #### M G, TSH3, CBC, DIFF CBC, PT, PTT, CMP #### [address] Glucose [Mass/Vol] 355 mg/dL Normal [facility] Comment on above: Result Comment: [place] [facility] Glucose Reference Range is dependent on time and content of last meal. Glucose of more than 200 mg/dL in a nonstressed, ambulatory subject supports the diagnosis of Diabetes Mellitus. PERFORMED BY: [place] [address] PATHOLOGIST BOATBUILDER SUPERVISOR TRINA GARCIA M.D. Performed By: #### M G, TSH3, CBC, DIFF CBC, PT, PTT, CMP #### [place] [address] [place] Glucose [Mass/Vol] 178 mg/dL Normal [facility] Comment on above: Result Comment: [place] [facility] Glucose Reference Range is dependent on time and content of last meal. Glucose of more than 200 mg/dL in a nonstressed, ambulatory subject supports the diagnosis of Diabetes Mellitus. PERFORMED BY: [place] [address] PATHOLOGIST BOATBUILDER SUPERVISOR TRINA GARCIA M.D. Performed By: #### M G, TSH3, CBC, DIFF CBC, PT, PTT, CMP #### [place] [address] [place] Glucose [Mass/Vol] 205 mg/dL Normal [facility] Comment on above: Result Comment: [facility] Glucose Reference Range is dependent on time and content of last meal. Glucose of more than 200 mg/dL in a nonstressed, ambulatory subject supports the diagnosis of Diabetes Mellitus. PERFORMED BY: [address] [place] [address] PATHOLOGIST BOATBUILDER SUPERVISOR TRINA GARCIA M.D. Performed By: #### M G, TSH3, CBC, DIFF CBC, PT, PTT, CMP #### [address] Magnesiumon 11-26-2022 Magnesium [Mass/Vol] 2.3 mg/dL Normal 1.9-2.7 [facility] Comment on above: Performed By: #### M G, TSH3, CBC, DIFF CBC, PT, PTT, CMP #### [address] Prealbuminon 11-26-2022 Prealbumin [Mass/Vol] 22.6 mg/dL Normal 17.0-34.0 [facility] Comment on above: Result Comment: PERF ORMED BY: [place] [address] PATHOLOGIST BOATBUILDER SUPERVISOR TRINA GARCIA M.D. Performed By: #### M G, TSH3, CBC, DIFF CBC, PT, PTT, CMP #### [address] Scan and CBCon 11-26-2022 Anisocytosis Ql (Bld) Slight Normal [facility] Comment on above: Performed By: #### H S TROP, A1C WTH eA, SCAN CBC #### [place] [address] [place] Basophils (Bld) [#/Vol] 0.0 10*3/uL Normal 0.0-0.2 [facility] Comment on above: Performed By: #### H S TROP, A1C WTH eA, SCAN CBC #### [place] [address] [place] Basophils/100 WBC (Bld) 0.1 % Normal . [facility] Comment on above: Performed By: #### H S TROP, A1C WTH eA, SCAN CBC #### [facility] [address] [place] [address] [place] Eosinophils (Bld) [#/Vol] 0.0 10*3/uL Normal 0.0-0.45 [facility] Comment on above: Performed By: #### H S TROP, A1C WTH eA, SCAN CBC #### [facility] [address] [place] [address] [place] Eosinophils/100 WBC (Bld) 0.0 % Normal . [facility] Comment on above: Performed By: #### H S TROP, A1C WTH eA, SCAN CBC #### [address] Erythrocyte distribution width (RBC) [Ratio] 13.5 % Normal 12.0-14.8 [facility] Comment on above: Performed By: #### H S TROP, A1C WTH eA, SCAN CBC #### [place] [address] [place] Hematocrit (Bld) [Volume fraction] 34.3 % Low 38.8-50.0 [facility] Comment on above: Performed By: #### H S TROP, A1C WTH eA, SCAN CBC #### [place] [address] [place] Hemoglobin (Bld) [Mass/Vol] 11.3 g/dL Low 13.0-17.0 [facility] Comment on above: Performed By: #### H S TROP, A1C WTH eA, SCAN CBC #### [facility] [address] [place] [address] [place] Lymphocytes (Bld) [#/Vol] 0.5 10*3/uL Low 1.00-4.8 [facility] Comment on above: Performed By: #### H S TROP, A1C WTH eA, SCAN CBC #### [facility] [address] [place] [address] [place] Lymphocytes/100 WBC (Bld) 3.8 % Normal . [facility] Comment on above: Performed By: #### H S TROP, A1C WTH eA, SCAN CBC #### [facility] [address] [place] [address] MCH (RBC) [Entitic mass] 31.0 pg Normal 27.5-35.2 [facility] Comment on above: Performed By: #### H S TROP, A1C WTH eA, SCAN CBC #### [facility] [address] [place] [address] MCV (RBC) [Entitic vol] 94.0 fL Normal 83.5-101 [facility] Comment on above: Performed By: #### H S TROP, A1C WTH eA, SCAN CBC #### [address] Mean Corpuscular HGB Conc 33.0 g/dL Normal 32.5-35.6 [facility] Comment on above: Performed By: #### H S TROP, A1C WTH eA, SCAN CBC #### [address] Microcytosis Slight Normal [facility] Comment on above: Performed By: #### H S TROP, A1C WTH eA, SCAN CBC #### [address] Monocytes (Bld) [#/Vol] 0.1 10*3/uL Normal 0.0-0.8 [facility] Comment on above: Performed By: #### H S TROP, A1C WTH eA, SCAN CBC #### [address] Monocytes/100 WBC (Bld) 0.7 % Normal . [facility] Comment on above: Performed By: #### H S TROP, A1C WTH eA, SCAN CBC #### [facility] [address] [place] [address] Neutrophils (Bld) [#/Vol] 12.1 10*3/uL High 1.8-7.7 [facility] Comment on above: Performed By: #### H S TROP, A1C WTH eA, SCAN CBC #### [address] Neutrophils/100 WBC (Bld) 95.4 % Normal . [facility] Comment on above: Performed By: #### H S TROP, A1C WTH eA, SCAN CBC #### [address] NRBC% 0.0 /100{WBC} Normal 0-0.5 [facility] Comment on above: Performed By: #### H S TROP, A1C WTH eA, SCAN CBC #### [address] Ovalocytes Slight Normal [facility] Comment on above: Performed By: #### H S TROP, A1C WTH eA, SCAN CBC #### [address] Platelet Estimate Normal Normal Normal [facility] Comment on above: Performed By: #### H S TROP, A1C WTH eA, SCAN CBC #### [address] Platelet mean volume (Bld) [Entitic vol] 8.2 fL Normal 6.6-10.1 [facility] Comment on above: Performed By: #### H S TROP, A1C WTH eA, SCAN CBC #### [address] Platelet Morphology Normal Normal Normal [facility] Comment on above: Result Comment: PERF ORMED BY: [place] [address] PATHOLOGIST BOATBUILDER SUPERVISOR TRINA GARCIA M.D. Performed By: #### H S TROP, A1C WTH eA, SCAN CBC #### [place] [address] [place] Platelets (Bld) [#/Vol] 229 10*3/uL Normal 150-450 [facility] Comment on above: Performed By: #### H S TROP, A1C WTH eA, SCAN CBC #### [place] [address] [place] RBC (Bld) [#/Vol] 3.65 10*6/uL Low 3.90-5.60 [facility] Comment on above: Performed By: #### H S TROP, A1C WTH eA, SCAN CBC #### [address] WBC (Bld) [#/Vol] 12.6 10*3/uL High 4.1-10.5 [facility] Comment on above: Performed By: #### H S TROP, A1C WTH eA, SCAN CBC #### [address] Troponin I High Sensitivityo n 11-26-2022 Troponin I High Sensitivity 19.7 pg/mL Normal 0.0-20.0 [facility] Comment on above: Result Comment: PERF ORMED BY: [place] [address] PATHOLOGIST BOATBUILDER SUPERVISOR TRINA GARCIA M.D. Performed By: #### H S TROP, A1C WTH eA, SCAN CBC #### [address] Troponin I High Sensitivity 24.1 pg/mL High 0.0-20.0 [facility] Comment on above: Result Comment: PERF ORMED BY: [place] [address] PATHOLOGIST BOATBUILDER SUPERVISOR TRINA GARCIA M.D. Performed By: #### M G, TSH3, CBC, DIFF CBC, PT, PTT, CMP #### [address] Urine Cultureon 11-26-2022 Bacteria identified Cx Nom (U) No Growth 2 Days PERFORMED BY: [place] [address] PATHOLOGIST BOATBUILDER SUPERVISOR RTINA GARCIA M.D. Normal [facility] Comment on above: Performed By: #### M G, TSH3, CBC, DIFF CBC, PT, PTT, CMP #### [address] Activated partial thrombopla stin time (aPTT) in platelet poor plasma by coagulation aOrdered By: Shukri Francisco on 11-25-2022 aPTT Coag (PPP) [Time] 23.3 s 25.1-36.5 [facility] Alanine aminotransferase [En zymatic activity/volume] in Serum or PlasmaOrdered By: Shukri Francisco on 11-25-2022 ALT [Catalytic activity/Vol] 9 U/L 7-52 [facility] Albumin [Mass/volume] in Ser um or Plasma by Bromocresol green (BCG) dye binding methoOrdered By: Shukri Francisco on 11-25-2022 Albumin BCG dye [Mass/Vol] 3.2 g/dL 3.5-5.7 [facility] Alkaline phosphatase [Enzyma tic activity/volume] in Serum or PlasmaOrdered By: Shukri Francisco on 11-25-2022 ALP [Catalytic activity/Vol] 114 U/L 34-104 [facility] Aspartate aminotransferase [ Enzymatic activity/volume] in Serum or PlasmaOrdered By: Shukri Francisco on 11-25-2022 AST [Catalytic activity/Vol] 11 U/L 13-39 [facility] Automated erythrocytes count in urine sediment (number/area)Ordered By: Shukri Francisco on 11-25-2022 RBC Auto (Urine sed) [#/Area] 0-1 [HPF] 0-4 [facility] Automated leukocytes count i n urine sediment (number/area)Ordered By: Shukri Francisco on 11-25-2022 WBC Auto (Urine sed) [#/Area] 0-1 [HPF] 0-4 [facility] B-Type Natriuretic Peptideon 11-25-2022 Natriuretic peptide B (Bld) [Mass/Vol] 194.0 pg/mL High 5-100 [facility] Comment on above: Result Comment: PERF ORMED BY: [place] [address] PATHOLOGIST BOATBUILDER SUPERVISOR TRINA GARCIA M.D. Performed By: #### M G, TSH3, CBC, DIFF CBC, PT, PTT, CMP #### [address] Band form neutrophils/100 WB C Manual cnt (Bld)Ordered By: Shukri Francisco on 11-25-2022 Band form neutrophils/100 WBC (Bld) 2 % 0-5 [facility] Basophils Auto (Bld) [#/Vol] Ordered By: Shukri Francisco on 11-25-2022 Basophils (Bld) [#/Vol] N/A [facility] Basophils/100 WBC Auto (Bld) Ordered By: Shukri Francisco on 11-25-2022 Basophils/100 WBC (Bld) N/A [facility] Basophils/100 WBC Manual cnt (Bld)Ordered By: Shukri Francisco on 11-25-2022 Basophils/100 WBC (Bld) 0 % 0-2 [facility] Bilirubin Test strip Ql (U)O rdered By: Shukri Francisco on 11-25-2022 Bilirubin Ql (U) Negative Negative [facility] Bilirubin.total [Mass/volume ] in Serum or PlasmaOrdered By: Shukri Francisco on 11-25-2022 Bilirubin [Mass/Vol] 0.5 mg/dL 0.3-1.0 [facility] Blood Cultureon 11-25-2022 Bacteria identified Cx Nom (Bld) NO GROWTH 5 DAYS PERFORMED BY: [place] [address] PATHOLOGIST BOATBUILDER SUPERVISOR TRINA GARCIA M.D. [facility] Comment on above: Performed By: #### M G, TSH3, CBC, DIFF CBC, PT, PTT, CMP #### [facility] [address] [place] [address] Bacteria identified Cx Nom (Bld) NO GROWTH 5 DAYS PERFORMED BY: [place] [address] PATHOLOGIST BOATBUILDER SUPERVISOR TRINA GARCIA M.D. [facility] Comment on above: Performed By: #### M G, TSH3, CBC, DIFF CBC, PT, PTT, CMP #### [facility] [address] [place] [address] [place] Calcium [Mass/volume] in Ser um or PlasmaOrdered By: Shukri Francisco on 11-25-2022 Calcium [Mass/Vol] 9.1 mg/dL 8.6-10.3 [facility] Carbon dioxide, total [Moles /volume] in Serum or PlasmaOrdered By: Shukri Francisco on 11-25-2022 CO2 [Moles/Vol] 27.0 mmol/L 21.0-31.0 [facility] Chloride [Moles/volume] in S lio or PlasmaOrdered By: Shukri Francisco on 11-25-2022 Chloride [Moles/Vol] 108 mmol/L 98-107 [facility] Color Auto (U)Ordered By: Allie Francisco on 11-25-2022 Color (U) Yellow Yellow [facility] Complete Blood Count Auto Di ffon 11-25-2022 Erythrocyte distribution width (RBC) [Ratio] 13.6 % Normal 12.0-14.8 [facility] Comment on above: Performed By: #### M G, TSH3, CBC, DIFF CBC, PT, PTT, CMP #### [facility] [address] Hematocrit (Bld) [Volume fraction] 39.9 % Normal 38.8-50.0 [facility] Comment on above: Performed By: #### M G, TSH3, CBC, DIFF CBC, PT, PTT, CMP #### [facility] [address] Hemoglobin (Bld) [Mass/Vol] 13.1 g/dL Normal 13.0-17.0 [facility] Comment on above: Performed By: #### M G, TSH3, CBC, DIFF CBC, PT, PTT, CMP #### [address] MCH (RBC) [Entitic mass] 31.0 pg Normal 27.5-35.2 [facility] Comment on above: Performed By: #### M G, TSH3, CBC, DIFF CBC, PT, PTT, CMP #### [address] MCV (RBC) [Entitic vol] 94.1 fL Normal 83.5-101 [facility] Comment on above: Performed By: #### M G, TSH3, CBC, DIFF CBC, PT, PTT, CMP #### [address] Mean Corpuscular HGB Conc 32.9 g/dL Normal 32.5-35.6 [facility] Comment on above: Performed By: #### M G, TSH3, CBC, DIFF CBC, PT, PTT, CMP #### [address] Platelet mean volume (Bld) [Entitic vol] 8.1 fL Normal 6.6-10.1 [facility] Comment on above: Result Comment: PERF ORMED BY: [place] [address] PATHOLOGIST BOATBUILDER SUPERVISOR TRINA GARCIA M.D. Performed By: #### M G, TSH3, CBC, DIFF CBC, PT, PTT, CMP #### [address] Platelets (Bld) [#/Vol] 278 10*3/uL Normal 150-450 [facility] Comment on above: Performed By: #### M G, TSH3, CBC, DIFF CBC, PT, PTT, CMP #### [address] RBC (Bld) [#/Vol] 4.24 10*6/uL Normal 3.90-5.60 [facility] Comment on above: Performed By: #### M G, TSH3, CBC, DIFF CBC, PT, PTT, CMP #### [address] WBC (Bld) [#/Vol] 21.8 10*3/uL High 4.1-10.5 [facility] Comment on above: Performed By: #### M G, TSH3, CBC, DIFF CBC, PT, PTT, CMP #### [facility] [address] Comprehensive Metabolic Pane uma 11-25-2022 Albumin [Mass/Vol] 3.2 g/dL Low 3.5-5.7 [facility] Comment on above: Performed By: #### M G, TSH3, CBC, DIFF CBC, PT, PTT, CMP #### [facility] [address] [place] [address] Albumin/Globulin [Mass ratio] 1.1 {ratio} Normal [facility] Comment on above: Performed By: #### M G, TSH3, CBC, DIFF CBC, PT, PTT, CMP #### [address] ALP [Catalytic activity/Vol] 114 U/L High 34-104 [facility] Comment on above: Performed By: #### M G, TSH3, CBC, DIFF CBC, PT, PTT, CMP #### [address] ALT [Catalytic activity/Vol] 9 U/L Normal 7-52 [facility] Comment on above: Performed By: #### M G, TSH3, CBC, DIFF CBC, PT, PTT, CMP #### [facility] [address] [place] [address] Anion gap [Moles/Vol] 11.0 mmol/L Normal 6.0-15.0 [facility] Comment on above: Performed By: #### M G, TSH3, CBC, DIFF CBC, PT, PTT, CMP #### [facility] [address] [place] [address] AST [Catalytic activity/Vol] 11 U/L Low 13-39 [facility] Comment on above: Performed By: #### M G, TSH3, CBC, DIFF CBC, PT, PTT, CMP #### [facility] [address] [place] [address] Bilirubin [Mass/Vol] 0.5 mg/dL Normal 0.3-1.0 [facility] Comment on above: Performed By: #### M G, TSH3, CBC, DIFF CBC, PT, PTT, CMP #### [address] Calcium [Mass/Vol] 9.1 mg/dL Normal 8.6-10.3 [facility] Comment on above: Performed By: #### M G, TSH3, CBC, DIFF CBC, PT, PTT, CMP #### [address] [place] [address] [place] Chloride [Moles/Vol] 108 mmol/L High 98-107 [facility] Comment on above: Performed By: #### M G, TSH3, CBC, DIFF CBC, PT, PTT, CMP #### [facility] [address] CO2 [Moles/Vol] 27.0 mmol/L Normal 21.0-31.0 [facility] Comment on above: Performed By: #### M G, TSH3, CBC, DIFF CBC, PT, PTT, CMP #### [facility] [address] Creatinine [Mass/Vol] 1.14 mg/dL Normal 0.70-1.30 [facility] Comment on above: Performed By: #### M G, TSH3, CBC, DIFF CBC, PT, PTT, CMP #### [address] Creatinine Clr Calc Pharmacy 41.45 [facility] Comment on above: Performed By: #### M G, TSH3, CBC, DIFF CBC, PT, PTT, CMP #### [facility] [address] GFR/1.73 sq M.predicted MDRD (S/P/Bld) [Vol rate/Area] mL/min/{1.73_m2} [facility] Comment on above: Performed By: #### M G, TSH3, CBC, DIFF CBC, PT, PTT, CMP #### [address] Globulin (S) [Mass/Vol] 3.0 g/dL [facility] Comment on above: Performed By: #### M G, TSH3, CBC, DIFF CBC, PT, PTT, CMP #### [address] Glucose [Mass/Vol] 54 mg/dL Low 70-100 [facility] Comment on above: Result Comment: [facility] Glucose Reference Range is dependent on time and content of last meal. Glucose of more than 200 mg/dL in a nonstressed, ambulatory subject supports the diagnosis of Diabetes Mellitus. ADA recommended reference range Performed By: #### M G, TSH3, CBC, DIFF CBC, PT, PTT, CMP #### [facility] [address] Potassium [Moles/Vol] 4.0 mmol/L Normal 3.5-5.1 [facility] Comment on above: Performed By: #### M G, TSH3, CBC, DIFF CBC, PT, PTT, CMP #### [facility] [address] Protein [Mass/Vol] 6.2 g/dL Low 6.4-8.9 [facility] Comment on above: Performed By: #### M G, TSH3, CBC, DIFF CBC, PT, PTT, CMP #### [facility] [address] Sodium [Moles/Vol] 142 mmol/L Normal 136-145 [facility] Comment on above: Performed By: #### M G, TSH3, CBC, DIFF CBC, PT, PTT, CMP #### [facility] [address] Urea nitrogen [Mass/Vol] 35 mg/dL High 7-25 [facility] Comment on above: Performed By: #### M G, TSH3, CBC, DIFF CBC, PT, PTT, CMP #### [facility] [address] [place] [address] Creatinine [Mass/volume] in Serum or PlasmaOrdered By: Shukri Francisco on 11-25-2022 Creatinine [Mass/Vol] 1.14 mg/dL 0.70-1.30 [facility] Diff and CBCon 11-25-2022 Band form neutrophils/100 WBC (Bld) 2 % Normal 0-5 [facility] Comment on above: Performed By: #### M G, TSH3, CBC, DIFF CBC, PT, PTT, CMP #### [facility] [address] [place] [address] [place] Basophils/100 WBC (Bld) 0 % Normal 0-2 [facility] Comment on above: Performed By: #### M G, TSH3, CBC, DIFF CBC, PT, PTT, CMP #### [facility] [address] [place] [address] [place] Eosinophils/100 WBC (Bld) 0 % Low 1-3 [facility] Comment on above: Performed By: #### M G, TSH3, CBC, DIFF CBC, PT, PTT, CMP #### [facility] [address] [place] [address] [place] Lymphocytes/100 WBC (Bld) 6 % Low 18-42 [facility] Comment on above: Performed By: #### M G, TSH3, CBC, DIFF CBC, PT, PTT, CMP #### [place] [address] [place] Metamyelocytes 1 % High 0-0 [facility] Comment on above: Performed By: #### M G, TSH3, CBC, DIFF CBC, PT, PTT, CMP #### [place] [address] [place] Monocytes/100 WBC (Bld) 19.98 % Normal 0.00-20.00 [facility] Comment on above: Result Comment: For adults in ED, MDW > 20.0 may be associated with a higher risk of sepsis during the first 12 hrs of hospital admission The predictive value of MDW for identifying sepsis in patients with hematological abnormalities has not been established Performed By: #### M G, TSH3, CBC, DIFF CBC, PT, PTT, CMP #### [facility] [address] [place] [address] [place] Monocytes/100 WBC (Bld) 2 % Normal 2-11 [facility] Comment on above: Performed By: #### M G, TSH3, CBC, DIFF CBC, PT, PTT, CMP #### [place] [address] [place] Myelocytes 4 % High 0-0 [facility] Comment on above: Performed By: #### M G, TSH3, CBC, DIFF CBC, PT, PTT, CMP #### [facility] [address] [place] [address] [place] Platelet Estimate Normal Normal Normal [facility] Comment on above: Performed By: #### M G, TSH3, CBC, DIFF CBC, PT, PTT, CMP #### [facility] [address] [place] [address] Platelet Morphology Normal Normal Normal [facility] Comment on above: Result Comment: PERF ORMED BY: [place] [address] PATHOLOGIST BOATBUILDER SUPERVISOR TRINA GARCIA M.D. Performed By: #### M G, TSH3, CBC, DIFF CBC, PT, PTT, CMP #### [facility] [address] [place] [address] RBC morphology finding Nom (Bld) Normal Normal Normal [facility] Comment on above: Performed By: #### M G, TSH3, CBC, DIFF CBC, PT, PTT, CMP #### [address] Segmented neutrophils/100 WBC (Bld) 85 % High 50-70 [facility] Comment on above: Performed By: #### M G, TSH3, CBC, DIFF CBC, PT, PTT, CMP #### [address] Dipstick and Microscopicon 0 11-25-2022 Appearance (U) Clear Normal Clear [facility] Comment on above: Order Comment: Name Collection Type:: Berry Catheter Performed By: #### M G, TSH3, CBC, DIFF CBC, PT, PTT, CMP #### [facility] [address] [place] [address] Bacteria,Urine None Seen Normal None Seen [facility] Comment on above: Order Comment: Name Collection Type:: Berry Catheter Performed By: #### M G, TSH3, CBC, DIFF CBC, PT, PTT, CMP #### [place] [address] [place] Bilirubin,Urine Negative Normal Negative [facility] Comment on above: Order Comment: Name Collection Type:: Berry Catheter Performed By: #### M G, TSH3, CBC, DIFF CBC, PT, PTT, CMP #### [address] [place] [address] [place] Color (U) Yellow Normal Yellow [facility] Comment on above: Order Comment: Name Collection Type:: Berry Catheter Performed By: #### M G, TSH3, CBC, DIFF CBC, PT, PTT, CMP #### [facility] [address] Glucose Ql (U) Normal Normal Normal [facility] Comment on above: Order Comment: Name Collection Type:: Berry Catheter Performed By: #### M G, TSH3, CBC, DIFF CBC, PT, PTT, CMP #### [facility] [address] Hyaline Casts,Urine 0-8 Normal 0-8 [facility] Comment on above: Order Comment: Name Collection Type:: Berry Catheter Result Comment: PERF ORMED BY: [place] [address] PATHOLOGIST BOATBUILDER SUPERVISOR TRINA GARCIA M.D. Performed By: #### M G, TSH3, CBC, DIFF CBC, PT, PTT, CMP #### [address] Ketones Ql (U) Trace High Negative [facility] Comment on above: Order Comment: Name Collection Type:: Berry Catheter Performed By: #### M G, TSH3, CBC, DIFF CBC, PT, PTT, CMP #### [address] Leukocyte esterase Test strip Ql (U) Negative Normal Negative [facility] Comment on above: Order Comment: Name Collection Type:: Berry Catheter Performed By: #### M G, TSH3, CBC, DIFF CBC, PT, PTT, CMP #### [place] [address] [place] Nitrite,Urine Negative Normal Negative [facility] Comment on above: Order Comment: Name Collection Type:: Berry Catheter Performed By: #### M G, TSH3, CBC, DIFF CBC, PT, PTT, CMP #### [address] Occult Blood,Urine Negative Normal Negative [facility] Comment on above: Order Comment: Name Collection Type:: Berry Catheter Result Comment: PERF ORMED BY: [place] [address] PATHOLOGIST BOATBUILDER SUPERVISOR TRINA GARCIA M.D. Performed By: #### M G, TSH3, CBC, DIFF CBC, PT, PTT, CMP #### [address] pH (U) 6.0 [pH] Normal 5.0-9.0 [facility] Comment on above: Order Comment: Name Collection Type:: Berry Catheter Performed By: #### M G, TSH3, CBC, DIFF CBC, PT, PTT, CMP #### [address] Protein (U) [Mass/Vol] 300 mg/dL High Negative [facility] Comment on above: Order Comment: Name Collection Type:: Berry Catheter Performed By: #### M G, TSH3, CBC, DIFF CBC, PT, PTT, CMP #### [address] RBC LM.HPF (Urine sed) [#/Area] 0 /[HPF] Normal 0-4 [facility] Comment on above: Order Comment: Name Collection Type:: Berry Catheter Performed By: #### M G, TSH3, CBC, DIFF CBC, PT, PTT, CMP #### [address] Specificy Force,Urine 1.024 Normal 1.001-1.030 [facility] Comment on above: Order Comment: Name Collection Type:: Berry Catheter Performed By: #### M G, TSH3, CBC, DIFF CBC, PT, PTT, CMP #### [place] [address] [place] Squamous Epithelial Cell,Urine 0-1 Normal 0-2 [facility] Comment on above: Order Comment: Name Collection Type:: Berry Catheter Performed By: #### M G, TSH3, CBC, DIFF CBC, PT, PTT, CMP #### [facility] [address] Urobilinogen,Urine Normal Normal Normal [facility] Comment on above: Order Comment: Name Collection Type:: Berry Catheter Performed By: #### M G, TSH3, CBC, DIFF CBC, PT, PTT, CMP #### [facility] [address] [place] [id number] [place] WBC LM.HPF (Urine sed) [#/Area] 0 /[HPF] Normal 0-4 [facility] Comment on above: Order Comment: Name Collection Type:: Berry Catheter Performed By: #### M G, TSH3, CBC, DIFF CBC, PT, PTT, CMP #### [facility] [address] ECG 12 lead ECGon 11-25-2022 ECG 12 lead ECG [facility] [place] [address] [place] [address] Electrocardiograph Report Signed Patient: Franki Hernandez MR#: [id number] : 1940 Acct:[id number] Age/Sex: 82 / M ADM Date: 11/25/22 Loc: ER Room: Type: [facility] ER Attending Dr: Ordering Provider: Shukri Francisco [...] Shukri Francisco MD 10/13 Normal [facility] Eosinophils Auto (Bld) [#/Vo l]Ordered By: Shukri Francisco on 11-25-2022 Eosinophils (Bld) [#/Vol] N/A [facility] Eosinophils/100 WBC Auto (Bl d)Ordered By: Shukri Francisco on 11-25-2022 Eosinophils/100 WBC (Bld) N/A [facility] Eosinophils/100 WBC Manual c nt (Bld)Ordered By: Shukri Francisco on 11-25-2022 Eosinophils/100 WBC (Bld) 0 % 1-3 [facility] Erythrocyte distribution wid th Auto (RBC) [Ratio]Ordered By: Shukri Francisco on 11-25-2022 Erythrocyte distribution width (RBC) [Ratio] 13.6 % 12.0-14.8 [facility] Free T4 (Free Thyroxine)on 0 11-25-2022 Free T4 [Mass/Vol] 1.31 ng/dL High 0.61-1.12 [facility] Comment on above: Result Comment: PERF ORMED BY: [place] [address] PATHOLOGIST BOATBUILDER SUPERVISOR TRINA GARCIA M.D. Performed By: #### M G, TSH3, CBC, DIFF CBC, PT, PTT, CMP #### [place] [address] [place] Globulin Calc (S) [Mass/Vol] Ordered By: Shukri Francisco on 11-25-2022 Globulin (S) [Mass/Vol] 3.0 g/dL [facility] Glucose Glucometer (BldC) [M ass/Vol]Ordered By: Jean-Pierre Otero on 11-25-2022 Glucose [Mass/Vol] 196 mg/dL [facility] Comment on above: Random Glucose Refer ence Range is dependent on time and content of last meal. Glucose of more than 200 mg/dL in a nonstressed, ambulatory subject supports the diagnosis of Diabetes Mellitus. Glucose Poct Glucometerson 0 11-25-2022 Glucose [Mass/Vol] 196 mg/dL Normal [facility] Comment on above: Result Comment: [place] om Glucose Reference Range is dependent on time and content of last meal. Glucose of more than 200 mg/dL in a nonstressed, ambulatory subject supports the diagnosis of Diabetes Mellitus. PERFORMED BY: [facility] [address] [place] [address] PATHOLOGIST BOATBUILDER SUPERVISOR TRINA GARCIA M.D. Performed By: #### M G, TSH3, CBC, DIFF CBC, PT, PTT, CMP #### [facility] [address] Commemt1 Normal [facility] Comment on above: Result Comment: Glu2 : WILL NOTIFY DR/RN Performed By: #### M G, TSH3, CBC, DIFF CBC, PT, PTT, CMP #### [facility] [address] Commemt2 FOLLOW HYPOGLYCEMIC Normal [facility] Comment on above: Result Comment: PERF ORMED BY: [facility] [address] [place] [address] PATHOLOGIST BOATBUILDER SUPERVISOR TRINA GARCIA M.D. Performed By: #### M G, TSH3, CBC, DIFF CBC, PT, PTT, CMP #### [address] Glucose [Mass/Vol] 47 mg/dL Off scale low [facility] Comment on above: Result Comment: [place] [facility] Glucose Reference Range is dependent on time and content of last meal. Glucose of more than 200 mg/dL in a nonstressed, ambulatory subject supports the diagnosis of Diabetes Mellitus. Performed By: #### M G, TSH3, CBC, DIFF CBC, PT, PTT, CMP #### [facility] [address] [place] [address] Glucose [Mass/volume] in Ser um or PlasmaOrdered By: Shukri Francisco on 11-25-2022 Glucose [Mass/Vol] 54 mg/dL 70-100 [facility] Comment on above: ADA recommended refe rence rangeRandom Glucose Reference Range is dependent on time and content of last meal. Glucose of more than 200 mg/dL in a nonstressed, ambulatory subject supports the diagnosis of Diabetes Mellitus. Hematocrit Auto (Bld) [Volum e fraction]Ordered By: Shukri Francisco on 11-25-2022 Hematocrit (Bld) [Volume fraction] 39.9 % 38.8-50.0 [facility] Hemoglobin [Mass/volume] in BloodOrdered By: Shukri Francisco on 11-25-2022 Hemoglobin (Bld) [Mass/Vol] 13.1 g/dL 13.0-17.0 [facility] Ketones Auto test strip (U) [Mass/Vol]Ordered By: Shukri Francisco on 11-25-2022 Ketones (U) [Mass/Vol] Trace Negative [facility] Laboratory - CoagulationOrde red By: Shukri Francisco on 11-25-2022 PT Coag (PPP) [Time] 10.6 s 9.0-12.9 [facility] Laboratory - UrinalysisOrder ed By: Shukri Francisco on 11-25-2022 Hyaline casts LM Ql (Urine sed) 0-8 [LPF] 0-8 [facility] Leukocytes [#/volume] correc oz for nucleated erythrocytes in Blood by Automated counOrdered By: Shukri Francisco on 11-25-2022 WBC corrected for nucl RBC Auto (Bld) [#/Vol] 21.8 10*3/uL 4.1-10.5 [facility] Lymphocytes Auto (Bld) [#/Vo l]Ordered By: Shukri Francisco on 11-25-2022 Lymphocytes (Bld) [#/Vol] N/A [facility] Lymphocytes/100 WBC Auto (Bl d)Ordered By: Shukri Francisco on 11-25-2022 Lymphocytes/100 WBC (Bld) N/A [facility] Lymphocytes/100 WBC Manual c nt (Bld)Ordered By: Shukri Francisco on 11-25-2022 Lymphocytes/100 WBC (Bld) 6 % 18-42 [facility] MCH Auto (RBC) [Entitic mass ]Ordered By: Shukri Francisco on 11-25-2022 MCH (RBC) [Entitic mass] 31.0 pg 27.5-35.2 [facility] MCHC Auto (RBC) [Mass/Vol]Or dered By: Shukri Francisco on 11-25-2022 MCHC (RBC) [Mass/Vol] 32.9 g/dL 32.5-35.6 [facility] MCV Auto (RBC) [Entitic vol] Ordered By: Shukri Francisco on 07-05-2023 MCV (RBC) [Entitic vol] 94.1 fL 83.5-101 [facility] Magnesiumon 11-25-2022 Magnesium [Mass/Vol] 1.7 mg/dL Low 1.9-2.7 [facility] Comment on above: Performed By: #### M G, TSH3, CBC, DIFF CBC, PT, PTT, CMP #### [facility] [address] Magnesium [Mass/volume] in S lio or PlasmaOrdered By: Shukri Francisco on 11-25-2022 Magnesium [Mass/Vol] 1.7 mg/dL 1.9-2.7 [facility] Metamyelocytes/100 WBC Manua l cnt (Bld)Ordered By: Shukri Francisco on 11-25-2022 Metamyelocytes/100 WBC (Bld) 1 % 0-0 [facility] Monocyte distribution width [Entitic volume] in Blood by AutomatedOrdered By: Shukri Francisco on 11-25-2022 Monocyte distribution width Auto (Bld) [Entitic vol] 19.98 % 0.00-20.00 [facility] Comment on above: For adults in ED, MD W > 20.0 may be associated with a higher risk of sepsis during the first 12 hrs of hospital admissionThe predictive value of MDW for identifying sepsis in patients with hematological abnormalities has not been established Monocytes Auto (Bld) [#/Vol] Ordered By: Shukri Francisco on 11-25-2022 Monocytes (Bld) [#/Vol] N/A [facility] Monocytes/100 WBC Auto (Bld) Ordered By: Shukri Francisco on 11-25-2022 Monocytes/100 WBC (Bld) N/A [facility] Monocytes/100 WBC Manual cnt (Bld)Ordered By: Shukri Francisco on 11-25-2022 Monocytes/100 WBC (Bld) 2 % 2-11 [facility] Myelocytes/100 WBC Manual cn t (Bld)Ordered By: Shukri Francisco on 11-25-2022 Myelocytes/100 WBC (Bld) 4 % 0-0 [facility] Natriuretic peptide B [Mass/ Vol]Ordered By: Shukri Francisco on 11-25-2022 Natriuretic peptide B (Bld) [Mass/Vol] 194.0 pg/mL 5-100 [facility] Neutrophils Auto (Bld) [#/Vo l]Ordered By: Shukri Francisco on 11-25-2022 Neutrophils (Bld) [#/Vol] N/A [facility] Neutrophils/100 WBC Auto (Bl d)Ordered By: Shukri Francisco on 11-25-2022 Neutrophils/100 WBC (Bld) N/A [facility] Nitrite Test strip Ql (U)Ord ered By: Shukri Francisco on 11-25-2022 Nitrite Ql (U) Negative Negative [facility] No Panel InformationOrdered By: Jean-Pierre Otero on 11-25-2022 Bedside Glucose #2 Comment Follow hypoglycemic [facility] Bedside Glucose Comment See comment [facility] Comment on above: Glu2: WILL NOTIFY DR /RN No Panel InformationOrdered By: Shukri Francisco on 11-25-2022 Estimated GFR (CKD-EPI) > 60.0 mL/Min [facility] Creatinine Clearance (Chem 41.45 [facility] Nucleated erythrocytes [Pres ence] in Blood by Automated countOrdered By: Shukri Francisco on 11-25-2022 Nucleated RBC Auto Ql (Bld) N/A [facility] Partial Thromboplastin Timeo n 11-25-2022 aPTT Coag (Bld) [Time] 23.3 s Low 25.1-36.5 [facility] Comment on above: Result Comment: PERF ORMED BY: [place] [address] PATHOLOGIST [employer]ATBUILDER SUPERVISOR TRINA GARCIA M.D. Performed By: #### M G, TSH3, CBC, DIFF CBC, PT, PTT, CMP #### [facility] [address] [place] [address] Platelet adequacy [Presence] in Blood by Light microscopyOrdered By: Shkuri Francisco on 11-25-2022 Platelets LM Ql (Bld) Normal Normal [facility] Platelet mean volume Auto (B ld) [Entitic vol]Ordered By: Shukri Francisco on 11-25-2022 Platelet mean volume (Bld) [Entitic vol] 8.1 fL 6.6-10.1 [facility] Platelet morphology finding [Identifier] in BloodOrdered By: Shukri Francisco on 11-25-2022 Platelet morphology finding Nom (Bld) Normal Normal [facility] Platelet poor plasma interna tional normalized ratio (INR) by coagulation assay (relatOrdered By: Shukri Francisco on 11-25-2022 INR Coag (PPP) [Relative time] 0.9 {INR} [facility] Comment on above: INR Therapeutic Rang [...] (Bld) [#/Vol] 278 10*3/uL 150-450 [facility] Potassium [Moles/volume] in Serum or PlasmaOrdered By: Shukri Francisco on 11-25-2022 Potassium [Moles/Vol] 4.0 mmol/L 3.5-5.1 [facility] Protein Auto test strip (U) [Mass/Vol]Ordered By: Shukri Francisco on 11-25-2022 Protein (U) [Mass/Vol] 300 mg/dL Negative [facility] Protein [Mass/volume] in Ser um or PlasmaOrdered By: Shukri Francisco on 11-25-2022 Protein [Mass/Vol] 6.2 g/dL 6.4-8.9 [facility] Prothrombin Time INRon 11-25 INR Coag (PPP) [Relative time] 0.9 {INR} Normal [facility] Comment on above: Result Comment: INR [...] CBC, DIFF CBC, PT, PTT, CMP #### [facility] [address] PT Coag (PPP) [Time] 10.6 s Normal 9.0-12.9 [facility] Comment on above: Performed By: #### M G, TSH3, CBC, DIFF CBC, PT, PTT, CMP #### [facility] [address] RBC Auto (Bld) [#/Vol]Ordere d By: Shukri Francisco on 11-25-2022 RBC (Bld) [#/Vol] 4.24 10*6/uL 3.90-5.60 [facility] RBC morphologyOrdered By: Allie Francisco on 11-25-2022 RBC morphology finding Nom (Bld) Normal Normal [facility] Segmented neutrophils/100 WB C Manual cnt (Bld)Ordered By: Shukri Francisco on 11-25-2022 Segmented neutrophils/100 WBC (Bld) 85 % 50-70 [facility] Serum or plasma albumin/glob ulin mass ratioOrdered By: Shukri Francisco on 11-25-2022 Albumin/Globulin [Mass ratio] 1.1 {ratio} [facility] Serum or plasma anion gap de terminationOrdered By: Shukri Francisco on 11-25-2022 Anion gap [Moles/Vol] 11.0 mmol/L 6.0-15.0 [facility] Sodium [Moles/volume] in Ser um or PlasmaOrdered By: Shukri Francisco on 11-25-2022 Sodium [Moles/Vol] 142 mmol/L 136-145 [facility] Specific gravity Auto test s trip (U) [Rel density]Ordered By: Shukri Francisco on 11-25-2022 Specific gravity (U) [Rel density] 1.024 1.001-1.030 [facility] Squamous epithelial cells de tection in urine sediment by light microscopyOrdered By: Shukri Francisco on 11-25-2022 Epithelial cells.squamous LM Ql (Urine sed) 0-1 [HPF] 0-2 [facility] Thyroid Stimulating Hormoneo n 11-25-2022 TSH Qn 0.17 m[IU]/L Low 0.45-5.33 [facility] Comment on above: Result Comment: PERF ORMED BY: [place] [address] PATHOLOGIST BOATBUIL[employer] SUPERVISOR TRINA GARCIA M.D. Performed By: #### M G, TSH3, CBC, DIFF CBC, PT, PTT, CMP #### [place] [id number] [facility] Thyrotropin [Units/volume] i n Serum or PlasmaOrdered By: Shukri Francisco on 11-25-2022 TSH Qn 0.17 m[IU]/L 0.45-5.33 [facility] Thyroxine (T4) free [Mass/vo lume] in Serum or PlasmaOrdered By: Shukri Francisco on 11-25-2022 Free T4 [Mass/Vol] 1.31 ng/dL 0.61-1.12 [facility] Troponin I High Sensitivityo n 11-25-2022 Troponin I High Sensitivity 28.3 pg/mL High 0.0-20.0 [facility] Comment on above: Result Comment: PERF ORMED BY: [place] [address] PATHOLOGIST BOATBUILDER SUPERVISOR TRINA GARCIA M.D. Performed By: #### M G, TSH3, CBC, DIFF CBC, PT, PTT, CMP #### [facility] [address] [place] [address] Troponin I.cardiac [Mass/vol ume] in Serum or Plasma by Detection limit <= 0.01 ng/Ordered By: Shukri Francisco on 11-25-2022 Troponin I.cardiac DL <= 0.01 ng/mL [Mass/Vol] 28.3 pg/mL 0.0-20.0 [facility] Urea nitrogen [Mass/volume] in Serum or PlasmaOrdered By: Shukri Francisco on 11-25-2022 Urea nitrogen [Mass/Vol] 35 mg/dL 7-25 [facility] Urine bacteria detection by automated methodOrdered By: Shukri Francisco on 11-25-2022 Bacteria Auto Ql (U) None seen None Seen [facility] Urine clarity by refractomet ry automatedOrdered By: Shukri Francisco on 11-25-2022 Clarity Refractometry automated (U) Clear Clear [facility] Urine glucose measurement by automated test strip (mass/volume)Ordered By: Shukri Francisco on 11-25-2022 Glucose Auto test strip (U) [Mass/Vol] Normal mg/dL Normal [facility] Urine hemoglobin detection b y automated test stripOrdered By: Shukri Francisco on 11-25-2022 Hemoglobin Auto test strip Ql (U) Negative Negative [facility] Urine leukocyte esterase det ection by automated test stripOrdered By: Shukri Francisco on 11-25-2022 Leukocyte esterase Auto test strip Ql (U) Negative Negative [facility] Urobilinogen Auto test strip (U) [Mass/Vol]Ordered By: Shukri Francisco on 11-25-2022 Urobilinogen (U) [Mass/Vol] Normal mg/dL Normal [facility] WBC Auto (Bld) [#/Vol]Ordere d By: Shukri Francisco on 11-25-2022 WBC (Bld) [#/Vol] 21.8 10*3/uL 4.1-10.5 [facility] XR chest 1V portableon 11-25 XR chest 1V portable [facility] [place] [address] XRay Report Signed Patient: Franki Hernandez MR#: [id number] : 1940 Acct:[id number] Age/Sex: 82 / M ADM Date: 11/25/22 [...] David Chahal M.D.11/25/2022 6:13 PM Dictation Location: [place] [address] Transcribed By: PWS 11/25/221812 Dictated By: David Chahal DO 11/25/221811 Signed By: 11/25/221812 Normal [facility] pH Auto test strip (U)Ordere d By: Shukri Francisco on 11-25-2022 pH (U) 6.0 [pH] 5.0-9.0 [facility] XR LSPINE 2_3 VIEWSon 2022 XR LSPINE 2_3 VIEWS Normal [facility] CBC AUTO DIFFon 09-12-2022 BASO # 0.1 103/ul Normal 0.0-0.1 [facility] Comment on above: Performed By: #### C BC ####[facility] [address] [place] [address]Dr. Villa Yanes Basophils/100 WBC (Bld) 0.3 % Normal 0.2-2.0 [facility] Comment on above: Performed By: #### C BC ####[facility] We[address] [place], [place] [address]Dr. Villa Yanes EO # 0.1 103/ul Normal 0.0-0.7 [facility] Comment on above: Performed By: #### C BC ####[facility] [address] [place] [address]Dr. Villa Yanes Eosinophils/100 WBC (Bld) 0.5 % Critically low 0.9-7.0 [facility] Comment on above: Performed By: #### C BC ####[facility] [address] [place] [address]Dr. Villa Yanes Erythrocyte distribution width (RBC) [Ratio] 12.3 % Normal 11.0-15.0 [facility] Comment on above: Performed By: #### C BC ####[facility] Iceeazy[address] [place], [place] [address]Dr. Villa Yanes Hematocrit (Bld) [Volume fraction] 40.2 % Critically low 42.0-54.0 [facility] Comment on above: Performed By: #### C BC ####[facility] [address] [place], [place] [address]Dr. Villa Yanes Hemoglobin (Bld) [Mass/Vol] 12.9 g/dL Critically low 14.0-18.0 [facility] Comment on above: Performed By: #### C BC ####[facility] [address]df[address] [place] [address]Dr. Villa Yanes IG # 0.16 10e3/ul Critically high 0.00-0.03 [facility] Comment on above: Performed By: #### C BC ####[facility] Orm[address] [place] [address]Dr. Villa Joaquín IG % 1.0 % Critically high 0.0-0.5 [facility] Comment on above: Performed By: #### C BC ####[facility] H[address]ocghypc7759 [place] [address]Dr. Villa Yanes LYMPH # 1.2 103/ul Normal 1.2-3.8 [facility] Comment on above: Performed By: #### C BC ####[facility] Qouoqghfsx9952 [place] [address]Dr. Villa Yanes Lymphocytes/100 WBC (Bld) 7.2 % Critically low 20.5-60.0 [facility] Comment on above: Performed By: #### C BC ####[facility] Hkjiklemah[address]44 [place] [address]Dr. [place]karen Yanes MANUAL DIFF REQ NO Normal [facility] Comment on above: Performed By: #### C BC ####[facility] Rvudcprntr8644 [place] [address]Dr. Villa Joaquín MCH (RBC) [Entitic mass] 31.9 pg Normal 25.9-34.0 [facility] Comment on above: Performed By: #### C BC ####[facility] Paoyvjyzhw4196 [place] [address]Dr. Villa Joaquín MCHC (RBC) [Mass/Vol] 32.1 g/dL Normal 29.9-35.2 [facility] Comment on above: Performed By: #### C BC ####[facility] Bmrnbqqfsc2296 [place] [address]DrBrenden Yanes MCV (RBC) [Entitic vol] 99.5 fL Critically high 80.0-94.0 [facility] Comment on above: Performed By: #### C BC ####[facility] Akpqmcnbao7855 [place] [address]DrBrenden Yanes MONO # 0.9 103/ul Critically high 0.3-0.8 [facility] Comment on above: Performed By: #### C BC ####[facility] Wibjxxkneo1287 [place] [address]DrBrenden Yanes Monocytes/100 WBC (Bld) 5.6 % Normal 1.7-12.0 [facility] Comment on above: Performed By: #### C BC ####[facility] [address]peyfum[address] [place], [place] [address]Dr. Villa Yanes NEUT # 14.1 103/ul Critically high 1.4-6.5 [facility] Comment on above: Performed By: #### C BC ####[facility] Tbz[address]om[address] [place], [place] [address]Dr. Villa Yanes Neutrophils/100 WBC (Bld) 85.4 % Critically high 43.0-75.0 [facility] Comment on above: Performed By: #### C BC ####[facility] Hznjckdogy7309 [place] [address]Dr. Villa Yanes Platelet mean volume (Bld) [Entitic vol] 9.9 fL Normal 9.5-13.5 [facility] Comment on above: Performed By: #### C BC ####[facility] Beinanfbrh[address] [place], [place] [address]Dr. Villa Yanes PLT 275 103/ul Normal 150-450 [facility] Comment on above: Performed By: #### C BC ####[facility] Z[address]obqhofy[address] [place], [place] [address]DrBrenden Yanes RBC 4.04 106/ul Critically low 4.70-6.10 [facility] Comment on above: Performed By: #### C BC ####[facility] O[address]kw[address] [place], [place] [address]DrBrenden Driver Yanes WBC 16.5 103/ul Critically high 4.0-11.0 [facility] Comment on above: Performed By: #### C BC ####[facility] Znswxqodmc[address] [place], [place] [address]Dr. [place]karen Joaquín CT ABD/PELV W CONon 09-13-[address] ABD/PELV W CON Normal [facility] ER URINE PROFILEon 3 Bilirubin Ql (U) Negative Normal NEGATIVE [facility] Comment on above: Performed By: #### E RUR ####[facility] Zrcojpvwlt[address] [place], [place] [address]Dr. Villa Yanes Clarity (U) CLEAR Normal CLEAR [facility] Comment on above: Performed By: #### E RUR ####[facility] Mz[address]wcnwgb[address] [place], [place] [address]Dr. Villa Yanes Color (U) LT. YELLOW Normal YELLOW [facility] Comment on above: Performed By: #### E RUR ####[facility] Ifemcbaajl[address] [place], [place] [address]Dr. Villa Yanes ERUAHD A micrscopic examina tion will be performed if indicated. Normal [facility] Comment on above: Performed By: #### E RUR ####[facility] Rkxeuxemvg[address] [place], [place] [address]Dr. Villa Yanes Glucose Ql (U) Negative Normal NEGATIVE [facility] Comment on above: Performed By: #### E RUR ####[facility] Kwuvwmmkle[address] [place], [place] [address]Dr. Villa Yanes Hemoglobin Ql (U) Negative Normal NEGATIVE [facility] Comment on above: Performed By: #### E RUR ####[facility] Dmhsasxkxo64[address] [place], [place] [address]Dr. Villa Yanes Ketones Ql (U) Negative Normal NEGATIVE [facility] Comment on above: Performed By: #### E RUR ####[facility] P[address]qcxzskp[address] [place], [place] [address]Dr. Villa Yanes LEUKOCYTES Negative Normal NEGATIVE [facility] Comment on above: Performed By: #### E RUR ####[facility] Maiuzideyx6105 [place] [address]Dr. Villa Yanes Nitrite Ql (U) Negative Normal NEGATIVE [facility] Comment on above: Performed By: #### E RUR ####[facility] Wimdfihpzn8704 [place] [address]Dr. Villa Yanes pH (U) 8.0 [pH] Normal 5-9 [facility] Comment on above: Performed By: #### E RUR ####[facility] Wked[address]frtn[address] [place], [place] [address]Dr. Villa Yanes Protein (U) [Mass/Vol] 100 mg/dL Abnormal NEGATIVE/ TRACE [facility] Comment on above: Performed By: #### E RUR ####[facility] Legojrniji[address] [place], [place] [address]Dr. Villa Yanes SPEC GRAVITY 1.020 Normal 1.005-<=1.[address] [place] [address] Comment on above: Performed By: #### E RUR ####[facility] Ga[address]agn[address] [place], [place] [address]Dr. Villa Yanes UR MICRO IND NOT INDICATED Normal [facility] Comment on above: Performed By: #### E RUR ####[facility] [address]wst[address] [place], [place] [address]Dr. Villa Yanes Urobilinogen Qn (U) 0.2 {Mackenzie'U}/dL Normal 0.2 - 1. 0 [facility] Comment on above: Performed By: #### E RUR ####[facility] Axeaatuz[address] [place], [place] [address]Dr. Villa Yanes PROF 14(COMP METB)on 023 Albumin [Mass/Vol] 3.3 g/dL Critically low 3.4-5.0 [facility] Comment on above: Performed By: #### H DEE, CMP ####[facility] N[address]uz[address]qkeg[address] [place], [place] [address]Dr. Villa Yanes Albumin/Globulin [Mass ratio] 0.9 {ratio} Normal [facility] Comment on above: Performed By: #### H STROPN, CMP ####[facility] Hsesqxmgvr2132 [place] [id number]. Villa Yanes ALP [Catalytic activity/Vol] 208 U/L Critically high 46-116 [facility] Comment on above: Performed By: #### H STROPN, CMP ####[facility] Ijmljrbdmp0492 [place] [id number]. Villa Yanes ALT [Catalytic activity/Vol] 16 U/L Normal 16-63 [facility] Comment on above: Performed By: #### H STROPN, CMP ####[facility] Cckuywvatg6216 [place] [address]Dr. Villa Joaquín Anion gap [Moles/Vol] 11.3 mmol/L Normal Th [facility] Comment on above: Performed By: #### H STROPN, CMP ####[facility] Ddgcdakpgq4403 [place] [address]Dr. Villa Yanes AST [Catalytic activity/Vol] 12 U/L Critically low 15-37 [facility] Comment on above: Performed By: #### H STROPN, CMP ####[facility] Biovckcjns4190 [place] [address]Dr. Villa Yanes Bilirubin [Mass/Vol] 0.3 mg/dL Normal 0.2-1.0 [facility] Comment on above: Performed By: #### H STROPN, CMP ####[facility] Hlsqydabdu5730 [place] [address]Dr. [place]karen Yanes Calcium [Mass/Vol] 9.8 mg/dL Normal 8.5-10.1 [facility] Comment on above: Performed By: #### H STROPN, CMP ####[facility] Phmhmqaszg8444 [place] [address]Dr. [place]karen Yanes Chloride [Moles/Vol] 103 mmol/L Normal 98-107 [facility] Comment on above: Performed By: #### H STROPN, CMP ####[facility] Bqmakgiahv4110 [place] [address]Dr. Villa Yanes CO2 [Moles/Vol] 29.6 mmol/L Normal 21.0-32.0 [facility] Comment on above: Performed By: #### H STROPN, CMP ####[facility] Wfbsuygpee6422 [place] [address]Dr. Villa Yanes Creatinine [Mass/Vol] 1.12 mg/dL Normal 0.70-1.30 [facility] Comment on above: Performed By: #### H STROPN, CMP ####[facility] Jspppcjvyh6221 [place] [address]Dr. Villa Yanes EGFR-AF PAKISTANI >60 Normal >=60 [facility] Comment on above: Performed By: #### H STROPN, CMP ####[facility] Xqwcmrxqxo1402 [place] [address]Dr. Villa Yanes EGFR-NON AF PAKISTANI >60 Normal >=60 [facility] Comment on above: Performed By: #### H STROPN, CMP ####[facility] Voobjwaoeb8346 [place] [address]Dr. Villa Yanes Globulin (S) [Mass/Vol] 3.7 g/dL Normal [facility] Comment on above: Performed By: #### H STROPN, CMP ####[facility] Lcsvnicpfi9039 [place] [address]Dr. Villa Yanes Glucose [Mass/Vol] 151 mg/dL Critically high 74-106 [facility] Comment on above: Performed By: #### H STROPN, CMP ####[facility] Sygkeprsxf3890 [place] [address]Dr. Villa Yanes Potassium [Moles/Vol] 3.9 mmol/L Normal 3.5-5.1 [facility] Comment on above: Performed By: #### H STROPN, CMP ####[facility] Jycfwrqfai1943 [place] [address]Dr. Villa Yanes Protein [Mass/Vol] 7.0 g/dL Normal 6.4-8.2 [facility] Comment on above: Performed By: #### H STROPN, CMP ####[facility] Oobcsfnbzn5121 [place] [address]Dr. Villa Yanes Sodium [Moles/Vol] 140 mmol/L Normal 136-145 [facility] Comment on above: Performed By: #### H DEE, CMP ####[facility] Pnyqebjjty6935 [place] [address]Dr. Villa Yanes Urea nitrogen [Mass/Vol] 30.0 mg/dL Critically high 7.0-18.0 [facility] Comment on above: Performed By: #### H DEE, CMP ####[facility] Vamjsjkczz9855 [place] [address]Dr. Villa Yanes Urea nitrogen/Creatinine [Mass ratio] 26.8 mg/mg Normal [facility] Comment on above: Performed By: #### Carlos PRICE CMP ####[facility] Haedpoobeh[address] [place], [place] [address]Dr. Villa Yanes TROPONIN, HIGH SENSITIVITYon 09-12-2022 HSTROP 8.9 pg/mL Normal 4.0-76.1 [facility] Comment on above: Result Comment: CUT- OFF POINTS HAVE BEEN ESTABLISHED BASED ON THE FOURTH UNIVERSAL DEFINITIONS OF MYOCARDIALINFARCTION. THE UPPER REFERENCE LIMIT (URL) OF TROPONIN, DEFINED THE 99TH PERCENTILE OFcTnI DISTRIBUTION IN A REFERENCE POPULATION, HAS BEEN CONFIRMED THE DECISION THRESHOLDFOR GA DIAGNOSIS. Performed By: #### Carlos PRICE CMP ####[facility] I[address]psmqlur[address] [place], [place] [address]Dr. [place]karen Yanes CBC AUTO DIFFon 08-18-2022 BASO # 0.1 103/ul Normal 0.0-0.1 [facility] Comment on above: Performed By: #### C BC ####[facility] R[address]jjshl[address] [place], [place] [address]Dr. Villa Yanes Basophils/100 WBC (Bld) 0.6 % Normal 0.2-2.0 [facility] Comment on above: Performed By: #### C BC ####[facility] Xx[address]nezofm[address] [place], [place] [address]Dr. Villa Yanes EO # 0.1 103/ul Normal 0.0-0.7 [facility] Comment on above: Performed By: #### C BC ####[facility] Qsavbnisoh9918 [place] [address]Dr. Villa Yanes Eosinophils/100 WBC (Bld) 1.2 % Normal 0.9-7.0 [facility] Comment on above: Performed By: #### C BC ####[facility] Iwuveocggw[address] [place], [place] [address]Dr. Villa Yanes Erythrocyte distribution width (RBC) [Ratio] 12.3 % Normal 11.0-15.0 [facility] Comment on above: Performed By: #### C BC ####[facility] Enbokcdxic[address] [place], [place] [address]Dr. Villa Yanes Hematocrit (Bld) [Volume fraction] 31.9 % Critically low 42.0-54.0 [facility] Comment on above: Performed By: #### C BC ####[facility] Kwkyenqult[address] [place], [place] [address]Dr. Villa Yanes Hemoglobin (Bld) [Mass/Vol] 10.4 g/dL Critically low 14.0-18.0 The [facility] Comment on above: Performed By: #### C BC ####[facility] Ifyytchcno2[address] [place], [place] [address]Dr. Villa Yanes IG # 0.09 10e3/ul Critically high 0.00-0.03 [facility] Comment on above: Performed By: #### C BC ####[facility] Qcrbtlooly99[address] [place], [place] [address]Dr. Villa Yanes IG % 1.0 % Critically high 0.0-0.5 [facility] Comment on above: Performed By: #### C BC ####[facility] Pxsdpmbpcu3041[address] [place], [place] [address]Dr. Villa Yanes LYMPH # 1.6 103/ul Normal 1.2-3.8 [facility] Comment on above: Performed By: #### C BC ####[facility] Afwxvktipk225[address] [place], [place] [address]Dr. Villa Yanes Lymphocytes/100 WBC (Bld) 17.9 % Critically low 20.5-60.0 [facility] Comment on above: Performed By: #### C BC ####[facility] Hpezdjozvo[address] [place] [id number]. Villa Yanes MANUAL DIFF REQ NO Normal [facility] Comment on above: Performed By: #### C BC ####[facility] Aeazspqjay4215 [place] [id number]. Villa Yanes MCH (RBC) [Entitic mass] 32.2 pg Normal 25.9-34.0 [facility] Comment on above: Performed By: #### C BC ####[facility] Hdntqbylhy[address] [place] [address]Dr. Villa Yanes MCHC (RBC) [Mass/Vol] 32.6 g/dL Normal 29.9-35.2 [facility] Comment on above: Performed By: #### C BC ####[facility] Lbvbbmkjcc7798 [place] [address]Dr. Villa Yanes MCV (RBC) [Entitic vol] 98.8 fL Critically high 80.0-94.0 [facility] Comment on above: Performed By: #### C BC ####[facility] Zdsrfpjhhz69[address] [place], [place] [address]Dr. Villa Joaquín MONO # 0.6 103/ul Normal 0.3-0.8 [facility] Comment on above: Performed By: #### C BC ####[facility] Vqhbajbaex7636[address] [place], [place] [address]Dr. Brooklynkaren Yanes Monocytes/100 WBC (Bld) 6.6 % Normal 1.7-12.0 [facility] Comment on above: Performed By: #### C BC ####[facility] Ybwsznxcds[address] [place], [place] [id number]. Villa Yanes NEUT # 6.6 103/ul Critically high 1.4-6.5 [facility] Comment on above: Performed By: #### C BC ####[facility] Iwdgaitqzg9[address] [place], [place] [address]Dr. Brooklynkaren Yanes Neutrophils/100 WBC (Bld) 72.7 % Normal 43.0-75.0 [facility] Comment on above: Performed By: #### C BC ####[facility] Egmqxlpgwa1486 [place] [id number]. Villa Yanes Platelet mean volume (Bld) [Entitic vol] 9.6 fL Normal 9.5-13.5 [facility] Comment on above: Performed By: #### C BC ####[facility] Gvsqwgjqyg9575 [place] [phone]. Villa Yanes PLT 206 103/ul Normal 150-450 [facility] Comment on above: Performed By: #### C BC ####[facility] Pmnxlchaup65[address] [place], [place] [id number]. Villa Joaquín RBC 3.23 106/ul Critically low 4.70-6.10 [facility] Comment on above: Performed By: #### C BC ####[facility] Tsdtjhrzqk367[address] [place], [place] [address]Dr. Brooklynkaren Yanes WBC 9.0 103/ul Normal 4.0-11.0 [facility] Comment on above: Performed By: #### C BC ####[facility] Eenpytaelw6[address] [place], [place] [address]Dr. Brooklynkaren Yanes CULTURE URINEon 08-18-2022 CULTURE URINE Culture Observations : LIGHT GROWTH OF MIXED SKIN ARACELI. NO POTENTIAL PATHOGENS SEEN. Normal [facility] Comment on above: Performed By: #### U RCX ####[facility] Ijqutvlzxl6133[address] [place], [place] [address]Dr. Villa Yanes PROF CHEM 8 (BAS METB)on Anion gap [Moles/Vol] 9.4 mmol/L Normal [facility] Comment on above: Performed By: #### B MP ####[facility] Vnrrekqwps4058[address] [place], [place] [address]Dr. Villa Yanes Calcium [Mass/Vol] 8.8 mg/dL Normal 8.5-10.1 [facility] Comment on above: Performed By: #### B MP ####[facility] Ubvrfpwtxy439[address] [place], [place] [address]Dr. Villa Yanes Chloride [Moles/Vol] 108 mmol/L Critically high 98-107 [facility] Comment on above: Performed By: #### B MP ####[facility] Nadrfnywpx[address] [place] [address]Dr. Villa Yanes CO2 [Moles/Vol] 28.5 mmol/L Normal 21.0-32.0 [facility] Comment on above: Performed By: #### B MP ####[facility] Kuknnbbkjo4085 [place] [address]Dr. Villa Yanes Creatinine [Mass/Vol] 0.76 mg/dL Normal 0.70-1.30 [facility] Comment on above: Performed By: #### B MP ####[facility] Cgnasfqmcn9499 [place] [address]Dr. Villa Yanes EGFR-AF PAKISTANI >60 Normal >=60 [facility] Comment on above: Performed By: #### B MP ####[facility] Rdqefddlqg0145[address] [place], [place] [address]Dr. Brooklynkaren Joaquín EGFR-NON AF PAKISTANI >60 Normal >=60 [facility] Comment on above: Performed By: #### B MP ####[facility] Scowakhklu3494[address] [place], [place] [address]Dr. Villa Joaquín Glucose [Mass/Vol] 84 mg/dL Normal 74-106 [facility] Comment on above: Performed By: #### B MP ####[facility] Qyxsfackcm989[address] [place], [place] [address]Dr. Villa Joaquín Potassium [Moles/Vol] 3.9 mmol/L Normal 3.5-5.1 [facility] Comment on above: Performed By: #### B MP ####[facility] Qaszevdngr24[address] [place], [place] [address]Dr. Villa Yanes Sodium [Moles/Vol] 142 mmol/L Normal 136-145 [facility] Comment on above: Performed By: #### B MP ####[facility] Fpxioldhcr6579[address] [place], [place] [address]Dr. Brooklynkaren Yanes Urea nitrogen [Mass/Vol] 15.0 mg/dL Normal 7.0-18.0 [facility] Comment on above: Performed By: #### B MP ####[facility] Iyqihlknyf22[address] [place] [address]Dr. Villa Yanes Urea nitrogen/Creatinine [Mass ratio] 19.7 mg/mg Normal [facility] Comment on above: Performed By: #### B MP ####[facility] Vbhxllkmim5[address] [place], [place] [address]Dr. Villa Yanes UA RANDOM W/MICROSCOPICon BACTERIA NONE SEEN Normal NONE SEEN [facility] Comment on above: Performed By: #### U AMIC ####[facility] Sytyjzpmvc3[address] [place], [place] [address]Dr. Villa Yanes Bilirubin Ql (U) Negative Normal NEGATIVE [facility] Comment on above: Performed By: #### U AMIC ####[facility] Rcdshzunry2928[address] [place], [place] [address]Dr. Villa Yanes CAST NONE SEEN Normal NONE SEEN [facility] Comment on above: Performed By: #### U AMIC ####[facility] Whuqkpqusj413[address] [place], [place] [address]Dr. Villa Yanes Clarity (U) CLEAR Normal CLEAR [facility] Comment on above: Performed By: #### U AMIC ####[facility] Loongogeml[address] [place], [place] [address]Dr. Villa Yanes Color (U) LT. YELLOW Normal YELLOW [facility] Comment on above: Performed By: #### U AMIC ####[facility] Hptiijoevs028[address] [place], [place] [address]Dr. Villa Yanes Crystals LM Nom (Urine sed) NONE SEEN Normal NONE SEEN [facility] Comment on above: Performed By: #### U AMIC ####[facility] Izfelxtlqb6504[address] [place], [place] [address]Dr. Villa Yanes Epithelial cells LM Ql (Urine sed) NONE SEEN Normal NONE SEEN /RARE [facility] Comment on above: Performed By: #### U AMIC ####[facility] Notucaaygb3662[address] [place], [place] [address]Dr. Villa Yanes Glucose Ql (U) Negative Normal NEGATIVE [facility] Comment on above: Performed By: #### U AMIC ####[facility] Yimehftxvc7409 [place] [address]Dr. Villa Yanes Hemoglobin Ql (U) Negative Normal NEGATIVE [facility] Comment on above: Performed By: #### U AMIC ####[facility] Wgqcrmpeop100[address] [place], [place] [address]Dr. Villa Yanes Ketones Ql (U) Negative Normal NEGATIVE [facility] Comment on above: Performed By: #### U AMIC ####[facility] Dfypahsycf2836[address] [place], [place] [address]Dr. Villa Yanes LEUKOCYTES Negative Normal NEGATIVE [facility] Comment on above: Performed By: #### U AMIC ####[facility] Tjlkbhtcrv6309[address] [place], [place] [address]Dr. Villa Yanes MUCOUS NONE SEEN Normal NONE SEEN [facility] Comment on above: Performed By: #### U AMIC ####[facility] Hpdgochyac9[address] [place], [place] [address]Dr. Villa Yanes Nitrite Ql (U) Negative Normal NEGATIVE [facility] Comment on above: Performed By: #### U AMIC ####[facility] Jiabtzwquk95[address] [place], [place] [address]Dr. Villa Yanes pH (U) 7.0 [pH] Normal 5-9 [facility] Comment on above: Performed By: #### U AMIC ####[facility] Lcqwieukbt7026[address] [place], [place] [address]Dr. Villa Yanes RBC 0-2 Normal 0-2 [facility] Comment on above: Performed By: #### U AMIC ####[facility] Mjvxxjveow9[address] [place], [place] [address]Dr. Villa Yanes SPEC GRAVITY 1.015 Normal 1.005-<=1.0 25 [facility] Comment on above: Performed By: #### U AMIC ####[facility] Tflheerbmv4534[address] [place], [place] [address]Dr. Villa Yanes UA PROTEIN 100 mg/dl Abnormal NEGATIVE/ TRACE [facility] Comment on above: Performed By: #### U AMIC ####[facility] Wdcjhnacda[address] [place], [place] [address]Dr. Villa Yanes Urobilinogen Qn (U) 0.2 {Mackenzie'U}/dL Normal 0.2 - 1. 0 [facility] Comment on above: Performed By: #### U AMIC ####[facility] Sdjaqqhxwq1028 [place] [address]Dr. Villa Yanes WBC NONE SEEN Normal NONE SEEN [facility] Comment on above: Performed By: #### U AMIC ####[facility] Imhtzezgyz0346 [place] [address]Dr. Villa Yanes ACETONE SERUMon 08-17-2022 ACETONE Negative Normal NEGATIVE [facility] Comment on above: Performed By: #### A CETON ####[facility] Prqlhhgbhy9[address] [place], [place] [address]Dr. Villa Yanes CBC AUTO DIFFon 08-17-2022 BASO # 0.1 103/ul Normal 0.0-0.1 [facility] Comment on above: Performed By: #### C BC ####[facility] Tbbhskkvpk7737 [place] [address]Dr. Villa Yanes Basophils/100 WBC (Bld) 0.4 % Normal 0.2-2.0 [facility] Comment on above: Performed By: #### C BC ####[facility] Xwudcqgwma7844 [place] [address]Dr. Villa Yanes EO # 0.1 103/ul Normal 0.0-0.7 [facility] Comment on above: Performed By: #### C BC ####[facility] Mudhkmfdwi3641 [place] [address]Dr. Villa Yanes Eosinophils/100 WBC (Bld) 0.4 % Critically low 0.9-7.0 [facility] Comment on above: Performed By: #### C BC ####[facility] Jqjyfdbawc2583 [place] [address]Dr. Villa Yanes Erythrocyte distribution width (RBC) [Ratio] 12.5 % Normal 11.0-15.0 [facility] Comment on above: Performed By: #### C BC ####[facility] Hldibgsizm9855 [place] [address]Dr. Villa Yanes Hematocrit (Bld) [Volume fraction] 37.8 % Critically low 42.0-54.0 [facility] Comment on above: Performed By: #### C BC ####[facility] Dtdutaemjd9285 [place] [address]Dr. Brooklynkaren Yanes Hemoglobin (Bld) [Mass/Vol] 12.4 g/dL Critically low 14.0-18.0 [facility] Comment on above: Performed By: #### C BC ####[facility] Rgwnbfmxro0149 [place] [address]Dr. Villa Yanes IG # 0.16 10e3/ul Critically high 0.00-0.03 [facility] Comment on above: Performed By: #### C BC ####[facility] Okerplmzqw7703 [place] [address]Dr. Villa Yanes IG % 1.2 % Critically high 0.0-0.5 [facility] Comment on above: Performed By: #### C BC ####[facility] Qfbjmxkiua0469 [place] [address]Dr. Villa Yanes LYMPH # 1.1 103/ul Critically low 1.2-3.8 [facility] Comment on above: Performed By: #### C BC ####[facility] Wdbnxyqmja1847 [place] [address]Dr. Villa Yanes Lymphocytes/100 WBC (Bld) 8.0 % Critically low 20.5-60.0 [facility] Comment on above: Performed By: #### C BC ####[facility] Vgogheykbl2010 [place] [address]Dr. Villa Yanes MANUAL DIFF REQ NO Normal [facility] Comment on above: Performed By: #### C BC ####[facility] Rifsngtvho15[address] [place], [place] [address]DrBrenden Yanes MCH (RBC) [Entitic mass] 32.0 pg Normal 25.9-34.0 [facility] Comment on above: Performed By: #### C BC ####[facility] Odrauscvdq2777 [place] [id number]. Villa Yanes MCHC (RBC) [Mass/Vol] 32.8 g/dL Normal 29.9-35.2 [facility] Comment on above: Performed By: #### C BC ####[facility] Wsndsdbvri5421 [place] [address]Dr. Villa Yanes MCV (RBC) [Entitic vol] 97.7 fL Critically high 80.0-94.0 [facility] Comment on above: Performed By: #### C BC ####[facility] Exncfeiibh7427 [place] [address]Dr. Villa Yanes MONO # 0.9 103/ul Critically high 0.3-0.8 [facility] Comment on above: Performed By: #### C BC ####[facility] Clnhsfvtnj0437 [place] [address]Dr. Brooklynkaren Yanes Monocytes/100 WBC (Bld) 6.4 % Normal 1.7-12.0 [facility] Comment on above: Performed By: #### C BC ####[facility] Vcikmaznyv5236 [place] [address]Dr. Villa Yanes NEUT # 11.3 103/ul Critically high 1.4-6.5 [facility] Comment on above: Performed By: #### C BC ####[facility] Aqogwxocks7872 [place] [address]Dr. Villa Joaquín Neutrophils/100 WBC (Bld) 83.6 % Critically high 43.0-75.0 [facility] Comment on above: Performed By: #### C BC ####[facility] Ninxfvxqul2075 [place] [id number]. Villa Yanes Platelet mean volume (Bld) [Entitic vol] 9.2 fL Critically low 9.5-13.5 [facility] Comment on above: Performed By: #### C BC ####[facility] Kqzoxnumch8486 [place] [id number]. Villa Joaquín PLT 279 103/ul Normal 150-450 [facility] Comment on above: Performed By: #### C BC ####[facility] Tveerjsxfm3721 [place] [address]Dr. Villa Yanes RBC 3.87 106/ul Critically low 4.70-6.10 [facility] Comment on above: Performed By: #### C BC ####[facility] Knmmworvik5836 [place] [address]Dr. Villa Yanes WBC 13.6 103/ul Critically high 4.0-11.0 [facility] Comment on above: Performed By: #### C BC ####[facility] Flcdapbptb1436[address] [place], [place] [address]Dr. Villa Yanes LACTATE/LACTIC ACIDon 2022 Lactate [Moles/Vol] 1.4 mmol/L Normal 0.4-2.0 [facility] Comment on above: Performed By: #### L ACT ####[facility] Closumtxdg2295[address] [place], [place] [address]Dr. Villa Yanes Lactate [Moles/Vol] 1.6 mmol/L Normal 0.4-2.0 [facility] Comment on above: Performed By: #### L ACT ####[facility] Yttohyxoiu1586[address] [place], [place] [address]Dr. Villa Yanes LIPASEon 08-17-2022 Lipase [Catalytic activity/Vol] 37.0 U/L Critically low 73.0-393.0 [facility] Comment on above: Performed By: #### L IPA ####[facility] Xjpzliyion348[address] [place], [place] [address]Dr. Brooklynkaren Joaquín POINT OF CARE GLUCOSEon 07-23 Glucose [Mass/Vol] 118 mg/dL Critically high 74-106 [facility] Comment on above: Performed By: #### P OCGLUC ####[facility] Ulanktnrwx4944[address] [place], [place] [address]Dr. Villa Yanes Glucose [Mass/Vol] 124 mg/dL Critically high 74-106 [facility] Comment on above: Performed By: #### P OCGLUC ####[facility] Kaczylnkrp1632[address] [place], [place] [address]Dr. Villa Yanes PROF 14(COMP METB)on 023 Albumin [Mass/Vol] 3.2 g/dL Critically low 3.4-5.0 [facility] Comment on above: Performed By: #### C SHALOM, HSTROPN ####[facility] Bkmswfsndb2797 [place] [address]Dr. Villa Yanes Albumin/Globulin [Mass ratio] 1.0 {ratio} Normal [facility] Comment on above: Performed By: #### C SHALOM, HSTROPN ####[facility] Wxnsynupkt7886 [place] [address]Dr. Villa Yanes ALP [Catalytic activity/Vol] 148 U/L Critically high 46-116 [facility] Comment on above: Performed By: #### C SHALOM, HSTROPN ####[facility] Dcolryagej7131 [place] [address]Dr. Villa Yanes ALT [Catalytic activity/Vol] 11 U/L Critically low 16-63 [facility] Comment on above: Performed By: #### C SHALOM, HSTROPN ####[facility] Xmbkmyhstk0[address] [place], [place] [address]Dr. Villa Yanes Anion gap [Moles/Vol] 14.2 mmol/L Normal [facility] Comment on above: Performed By: #### C SHALOM, HSTROPN ####[facility] Lgnctkacht6535[address] [place], [place] [address]Dr. Villa Yanes AST [Catalytic activity/Vol] 9 U/L Critically low 15-37 [facility] Comment on above: Performed By: #### C SHALOM HSTROPN ####[facility] Ixxpvvirlc9[address] [place], [place] [address]Dr. Villa Yanes Bilirubin [Mass/Vol] 0.4 mg/dL Normal 0.2-1.0 [facility] Comment on above: Performed By: #### C SHALOM, HSTROPN ####[facility] Egkmdkmwlp5469[address] [place], [place] [address]Dr. Villa Yanes Calcium [Mass/Vol] 9.3 mg/dL Normal 8.5-10.1 [facility] Comment on above: Performed By: #### C MP, HSTROPN ####[facility] Adyejpvven4502 [place] [address]Dr. Villa Yanes Chloride [Moles/Vol] 104 mmol/L Normal 98-107 [facility] Comment on above: Performed By: #### C MP, HSTROPN ####[facility] Fajmyxkjas4502 [place] [address]Dr. Villa Yanes CO2 [Moles/Vol] 27.5 mmol/L Normal 21.0-32.0 [facility] Comment on above: Performed By: #### C MP, HSTROPN ####[facility] Kvqfzvakxy5324 [place] [address]Dr. Villa Yanes Creatinine [Mass/Vol] 1.11 mg/dL Normal 0.70-1.30 [facility] Comment on above: Performed By: #### C MP, HSTROPN ####[facility] Wglmnkucyp[address] [place], [place] [address]Dr. Villa Yanes EGFR-AF PAKISTANI >60 Normal >=60 [facility] Comment on above: Performed By: #### C MP, HSTROPN ####[facility] Xbwllinnyd[address]25[address] [place], [place] [address]Dr. Villa Yanes EGFR-NON AF PAKISTANI >60 Normal >=60 [facility] Comment on above: Performed By: #### C MP, HSTROPN ####[facility] Dermcrtfto0869 [place] [address]Dr. Villa Yanes Globulin (S) [Mass/Vol] 3.2 g/dL Normal [facility] Comment on above: Performed By: #### C MP, HSTROPN ####[facility] Kvuijdomdy2683 [place] [address]Dr. Villa Yanes Glucose [Mass/Vol] 163 mg/dL Critically high 74-106 [facility] Comment on above: Performed By: #### C MP, HSTROPN ####[facility] Iwnrmpzjse3094 [place] [address]Dr. Villa Yanes Potassium [Moles/Vol] 3.7 mmol/L Normal 3.5-5.1 [facility] Comment on above: Performed By: #### C SHALOM, HSTROPN ####[facility] Dwqduafnxb3384 [place] [address]Dr. Villa Yanes Protein [Mass/Vol] 6.4 g/dL Normal 6.4-8.2 [facility] Comment on above: Performed By: #### C SHALOM, HSTROPN ####[facility] Oonasxcjrz4865[address] [place], [place] [address]Dr. Villa Yanes Sodium [Moles/Vol] 142 mmol/L Normal 136-145 [facility] Comment on above: Performed By: #### C SHALOM, HSTROPN ####[facility] Tmasbphjmy3831[address] [place], [place] [address]Dr. Villa Yanes Urea nitrogen [Mass/Vol] 23.0 mg/dL Critically high 7.0-18.0 [facility] Comment on above: Performed By: #### C SHALOM, HSTROPN ####[facility] Wiwzhumtkw33[address] [place], [place] [address]Dr. Villa Yanes Urea nitrogen/Creatinine [Mass ratio] 20.7 mg/mg Normal [facility] Comment on above: Performed By: #### C SHALOM HSTROPN ####[facility] Tpxbhngvfw[address] [place], [place] [address]Dr. Villa Yanes RESPIRATORY PANEL PLUSon Adenovirus Not detected Normal NOT DETECTED [facility] Comment on above: Performed By: #### R SPLUS ####[facility] Twtyfyvruz6[address] [place], [place] [address]Dr. Villa Yanes B. Parapertusis Not detected Normal NOT DETECTED [facility] Comment on above: Performed By: #### R SPLUS ####[facility] Nsrwzrjacx1821[address] [place], [place] [address]Dr. Villa Yanes B. Pertussis Not detected Normal NOT DETECTED [facility] Comment on above: Performed By: #### R SPLUS ####[facility] Psdfalxzmg44[address] [place], [place] [address]Dr. Villa Yanes Chlamydia Pneumoniae Not detected Normal NOT DETECTED [facility] Comment on above: Performed By: #### R SPLUS ####[facility] Mjzpufwmtb[address] [place] [address]Dr. [facility] Coronavirus 229E Not detected Normal NOT DETECTED [facility] Comment on above: Performed By: #### R SPLUS ####[facility] Dldwlhagsj17[address] [place], [place] [address]Dr. [facility] Coronavirus HKU1 Not detected Normal NOT DETECTED [facility] Comment on above: Performed By: #### R SPLUS ####[facility] Ombemzmirp27[address] [place], [place] [address]Dr. [facility] Coronavirus NL63 Not detected Normal NOT DETECTED [facility] Comment on above: Performed By: #### R SPLUS ####[facility] Nrkrfjhqbh5713[address] [place], [place] [address]Dr. [facility] Coronavirus OC43 Not detected Normal NOT DETECTED [facility] Comment on above: Performed By: #### R SPLUS ####[facility] Niwtthdmwe1761[address] [place], [place] [address]Dr. Yikaren Yanes Influenza A H1 Not detected Normal NOT DETECTED [facility] Comment on above: Performed By: #### R SPLUS ####[facility] Ltrbniempp35[address] [place], [place] [address]Dr. Villa Yanes Influenza A H1 2009 Not detected Normal NOT DETECTED [facility] Comment on above: Performed By: #### R SPLUS ####[facility] Kodhvrvctb6218[address] [place], [place] [address]Dr. Yikaren Yanes Influenza A H3 Not detected Normal NOT DETECTED [facility] Comment on above: Performed By: #### R SPLUS ####[facility] Kjppvjdyhh5[address] [place], [place] [address]Dr. Yikaren Yanes Influenza B Not detected Normal NOT DETECTED [facility] Comment on above: Performed By: #### R SPLUS ####[facility] Dzlrsldyde9[address] [place], [place] [address]Dr. Yikaren Yanes Metapneumovirus Not detected Normal NOT DETECTED [facility] Comment on above: Performed By: #### R SPLUS ####[facility] Orlohndvxz[address] [place] [address]Dr. Villa Yanes Mycoplas. Pneumoniae Not detected Normal NOT DETECTED [facility] Comment on above: Performed By: #### R SPLUS ####[facility] Uiflojcbnd5218[address] [place], [place] [address]Dr. Yikaren Yanes Parainfluenza 1 Not detected Normal NOT DETECTED [facility] Comment on above: Performed By: #### R SPLUS ####[facility] Ejxblbigeb4066[address] [place], [place] [address]Dr. Yikaren Yanes Parainfluenza 2 Not detected Normal NOT DETECTED [facility] Comment on above: Performed By: #### R SPLUS ####[facility] Eqgaeotqom1854[address] [place], [place] [address]Dr. Villa Yanes Parainfluenza 3 Not detected Normal NOT DETECTED [facility] Comment on above: Performed By: #### R SPLUS ####[facility] Aocgplsick3[address] [place], [place] [address]Dr. Yikaren Yanes Parainfluenza 4 Not detected Normal NOT DETECTED [facility] Comment on above: Performed By: #### R SPLUS ####[facility] Yilbkzdhkx69[address] [place], [place] [address]Dr. Yilan Yanes Rhino/Enterovirus Not detected Normal NOT DETECTED [facility] Comment on above: Performed By: #### R SPLUS ####[facility] Inofgqnaqz0838[address] [place], [place] [address]Dr. Yikaren Yanes RP2 Header 1 RESPIRATORY PANEL: VIRUSES Normal [facility] Comment on above: Performed By: #### R SPLUS ####[facility] Xbrrmzhavv7[address] [place], [place] [address]Dr. Yilan Yanes RP2 Header 2 RESPIRATORY PANEL: BACTERIA Normal [facility] Comment on above: Performed By: #### R SPLUS ####[facility] Knylhsputn[address] [place], [place] [address]Dr. Yilan Yanes RSV Not detected Normal NOT DETECTED [facility] Comment on above: Performed By: #### R SPLUS ####[facility] Cogxsuvpbc9407 [place], [place] [address]Bk. Villa Yanes SARS-CoV-2 (COVID-19) RNA SHELLY+probe Ql (Unsp spec) Not detected Normal NOT DETECTED [facility] Comment on above: Performed By: #### R SPLUS ####[facility] Kqclpwqjxv3233 [place], [place] [address]Ez. Villa Yanes TROPONIN, HIGH SENSITIVITYon 08-17-2022 HSTROP 9.7 pg/mL Normal 4.0-76.1 [facility] Comment on above: Result Comment: CUT- OFF POINTS HAVE BEEN ESTABLISHED BASED ON THE FOURTH UNIVERSAL DEFINITIONS OF MYOCARDIALINFARCTION. THE UPPER REFERENCE LIMIT (URL) OF TROPONIN, DEFINED THE 99TH PERCENTILE OFcTnI DISTRIBUTION IN A REFERENCE POPULATION, HAS BEEN CONFIRMED THE DECISION THRESHOLDFOR GA DIAGNOSIS. Performed By: #### C MP, HSTROPN ####[facility] Tgtbllmvnj8[address] [place], [place] [address]Ev. 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 You may also call [phone] for free resources and assistance.; Status:Complete - [...] ago when he had a non-ST elevation GA associated with pneumonia, and initial ejection fraction [...] Percutaneous endoscopic gastrostomy tube insertion History of [employer] femoral-popliteal History of Urinary catheter placement Current [...] no hobson (more content not included)... Normal [place] Tobacco Screening.on 023 Adult depression screening assessment No [facility] Jounce DO Work Phone: Fall risk assessment b) One or more fall s in the last year [facility] Jounce DO Work Phone: Tobacco use status CPHS a) Yes [facility] Jounce DO Work Phone: XR ABD FLAT_UPon 07-31-2022 XR ABD FLAT_UP Normal [facility] AMMONIAon 07-30-2022 Ammonia (P) [Moles/Vol] 10 umol/L Critically low 11-32 [facility] Comment on above: Performed By: #### A MM ####[facility] Peiwuhhosf2[address] [place], [place] [address]Dr. Villa Yanes AMYLASEon 07-30-2022 Amylase [Catalytic activity/Vol] 36 U/L Normal 25-115 [facility] Comment on above: Performed By: #### L IPA, TSH, CANDIE, T7, CMP ####[facility] Prsyrembny0467[address] [place], [place] [address]Dr. Villa Yanes CBC AUTO DIFFon 07-30-2022 BASO # 0.1 103/ul Normal 0.0-0.1 [facility] Comment on above: Performed By: #### C BC ####[facility] Qjktlghxfr40[address] [place], [place] [address]Dr. Villa Yanes Basophils/100 WBC (Bld) 0.7 % Normal 0.2-2.0 [facility] Comment on above: Performed By: #### C BC ####[facility] Auudztclfq97[address] [place], [place] [address]Dr. Villa Yanes EO # 0.0 103/ul Normal 0.0-0.7 [facility] Comment on above: Performed By: #### C BC ####[facility] Gygbcuooww4017[address] [place], [place] [address]Dr. Villa Yanes Eosinophils/100 WBC (Bld) 0.3 % Critically low 0.9-7.0 [facility] Comment on above: Performed By: #### C BC ####[facility] Ggwxkpwnmm5[address] [place], [place] [address]Dr. Villa Yanes Erythrocyte distribution width (RBC) [Ratio] 13.1 % Normal 11.0-15.0 [facility] Comment on above: Performed By: #### C BC ####[facility] Zzjktcvihx[address] [place], [place] [address]Dr. Brooklynkaren Yanes Hematocrit (Bld) [Volume fraction] 41.2 % Critically low 42.0-54.0 [facility] Comment on above: Performed By: #### C BC ####[facility] Ianxvpxdzo[address] [place] [address]Dr. Villa Yanes Hemoglobin (Bld) [Mass/Vol] 13.7 g/dL Critically low 14.0-18.0 [facility] Comment on above: Performed By: #### C BC ####[facility] [address]cekftcfo[address] [place] [address]Dr. Villa Yanes IG # 0.41 10e3/ul Critically high 0.00-0.03 [facility] Comment on above: Performed By: #### C BC ####[facility] Lyvnumhjjf[address] [place] [address]Dr. Villa Yanes IG % 2.8 % Critically high 0.0-0.5 [facility] Comment on above: Performed By: #### C BC ####[facility] Qdtbhanrxp17[address] [place], [place] [address]Dr. Villa Yanes LYMPH # 1.7 103/ul Normal 1.2-3.8 [facility] Comment on above: Performed By: #### C BC ####[facility] Fziouwfsnd2499[address] [place], [place] [address]Dr. Villa Yanes Lymphocytes/100 WBC (Bld) 11.4 % Critically low 20.5-60.0 [facility] Comment on above: Performed By: #### C BC ####[facility] Zudbfpscpo[address] [place] [address]Dr. Villa Yanes MANUAL DIFF REQ NO Normal [facility] Comment on above: Performed By: #### C BC ####[facility] Vwtqikasfz8837[address] [place], [place] [address]Dr. Villa Yanes MCH (RBC) [Entitic mass] 31.9 pg Normal 25.9-34.0 [facility] Comment on above: Performed By: #### C BC ####[facility] Vvchdxaqol8559[address] [place], [place] [address]Dr. Villa Yanes MCHC (RBC) [Mass/Vol] 33.3 g/dL Normal 29.9-35.2 [facility] Comment on above: Performed By: #### C BC ####[facility] Sainlfgjuw74[address] [place] [address]Dr. Villa Yanes MCV (RBC) [Entitic vol] 96.0 fL Critically high 80.0-94.0 [facility] Comment on above: Performed By: #### C BC ####[facility] Enwqdkrxly5[address] [place] [address]Dr. Villa Yanes MONO # 0.9 103/ul Critically high 0.3-0.8 [facility] Comment on above: Performed By: #### C BC ####[facility] Smhzubusdx4829 [place] [address]Dr. Villa Yanes Monocytes/100 WBC (Bld) 6.4 % Normal 1.7-12.0 [facility] Comment on above: Performed By: #### C BC ####[facility] Jdnqyzyxgc47[address] [place], [place] [address]Dr. Villa Yanes NEUT # 11.6 103/ul Critically high 1.4-6.5 [facility] Comment on above: Performed By: #### C BC ####[facility] Drovvurhwv[address] [place], [place] [address]Dr. Villa Yanes Neutrophils/100 WBC (Bld) 78.4 % Critically high 43.0-75.0 [facility] Comment on above: Performed By: #### C BC ####[facility] Gqukjeihmo6[address] [place], [place] [address]Dr. Villa Yanes Platelet mean volume (Bld) [Entitic vol] 9.2 fL Critically low 9.5-13.5 [facility] Comment on above: Performed By: #### C BC ####[facility] Tneeicbafb[address]75 [place] [address]Dr. Villa Yanes PLT 368 103/ul Normal 150-450 [facility] Comment on above: Performed By: #### C BC ####[facility] Zrvbnqvimn[address] [place], [place] [address]Dr. Villa Joaquín RBC 4.29 106/ul Critically low 4.70-6.10 [facility] Comment on above: Performed By: #### C BC ####[facility] Dostotgrlj3357 [place] [address]Dr. Villa Yanes WBC 14.8 103/ul Critically high 4.0-11.0 [facility] Comment on above: Performed By: #### C BC ####[facility] Winceymepp2638 [place] [address]Dr. Villa Yanes [facility]on SARS-CoV-2 (COVID-19) RNA SHELLY+probe Ql (Unsp spec) Not detected Normal NOT DETECTED [facility] Comment on above: Result Comment: [...] for this test is supported by the [place] of Health and Human Service's declaration that [...] be used). Performed By: #### C VDTBH ####[facility] Rmrtpzbqgs[address] [place] [address]Dr. Villa Yanes FREE THYROXINE INDEX T7on FTI 2.55 Normal 1.30-4.50 [facility] Comment on above: Performed By: #### L IPA, TSH, CANDIE, T7, CMP ####[facility] Xootcqyjsh[address] [place], [place] [address]Dr. Villa Yanes T3U 38.0 % Normal 33.0-40.0 [facility] Comment on above: Performed By: #### L IPA, TSH, CANDIE, T7, CMP ####[facility] Ixfynwpgbq4648 [place] [address]Dr. Villa Yanes T4 [Mass/Vol] 6.70 ug/dL Normal 4.50-12.10 [facility] Comment on above: Performed By: #### L IPA, TSH, CANDIE, T7, CMP ####[facility] Nxmmokbdlj7[address] [place], [place] [address]Dr. Villa Yanes INFLUENZA A AND B AGon 07-30 INFLUANEGH SEE BELOW Normal [facility] Comment on above: Result Comment: Nega tive for Flu A protein angiten. Infection due to Flu A cannot be ruled out. Flu A angiten in the sample may be below the detection limit of the test. Performed By: #### I NFLUAB ####[facility] [address]th[address] [place] [address]. Villa Yanes INFLUBNEGH SEE BELOW Normal [facility] Comment on above: Result Comment: Nega tive for Flu B protein antigen. Infection due to Flu B cannot be ruled out. Flu B antigen in the sample may be below the detection limit of the test. Performed By: #### I NFLUAB ####[facility] Vjtlbiukhb5[address] [place], [place] [address]Dr. [facility] INFLUENZA A AG Negative Normal NEGATIVE SEE COMMENT [facility] Comment on above: Performed By: #### I NFLUAB ####[facility] Qfne[address]qh[address] [place] [address]. Villa Yanes INFLUENZA B AG Negative Normal NEGATIVE SEE COMMENT [facility] Comment on above: Performed By: #### I NFLUAB ####[facility] Nrbptwvxcq2282[address] [place], [place] [address]Dr. Villa Yanes IRONon 07-30-2022 Iron [Mass/Vol] 44.0 ug/dL Critically low 65.0-175.0 [facility] Comment on above: Performed By: #### I JOSE ####[facility] Vklbyfigxj2747[address] [place], [place] [address]Dr. Villa Yanes LIPASEon 07-30-2022 Lipase [Catalytic activity/Vol] 44.0 U/L Critically low 73.0-393.0 [facility] Comment on above: Performed By: #### L IPA, TSH, CANDIE, T7, CMP ####[facility] Lwnsf[address]rxx[address] [place] [address]Dr. Villa Yanes PROF 14(COMP METB)on 023 Albumin [Mass/Vol] 3.3 g/dL Critically low 3.4-5.0 [facility] Comment on above: Performed By: #### L IPA, TSH, CANDIE, T7, CMP ####[facility] Lldqourawm7622[address] [place], [place] [address]Dr. Villa Yanes Albumin/Globulin [Mass ratio] 0.9 {ratio} Normal [facility] Comment on above: Performed By: #### L IPA, TSH, CANDIE, T7, CMP ####[facility] Wxtiehpkhd[address] [place], [place] [address]Dr. Villa Yanes ALP [Catalytic activity/Vol] 163 U/L Critically high 46-116 [facility] Comment on above: Performed By: #### L IPA, TSH, CANDIE, T7, CMP ####[facility] Dehigywdiw45[address] [place], [place] [address]Dr. Villa Yanes ALT [Catalytic activity/Vol] 10 U/L Critically low 16-63 [facility] Comment on above: Performed By: #### L IPA, TSH, CANDIE, T7, CMP ####[facility] Nhvjelpegn2127[address] [place], [place] [address]Dr. Villa Yanes Anion gap [Moles/Vol] 13.1 mmol/L Normal [facility] Comment on above: Performed By: #### L IPA, TSH, CANDIE, T7, CMP ####[facility] Cosnweinng0976[address] [place], [place] [address]Dr. Villa Yanes AST [Catalytic activity/Vol] 12 U/L Critically low 15-37 [facility] Comment on above: Performed By: #### L IPA, TSH, CANDIE, T7, CMP ####[facility] Awkksbbwap05[address] [place], [place] [address]Dr. Villa Yanes Bilirubin [Mass/Vol] 0.4 mg/dL Normal 0.2-1.0 [facility] Comment on above: Performed By: #### L IPA, TSH, CANDIE, T7, CMP ####[facility] Tgwfolthto3986 [place] [address]Dr. Villa Yanes Calcium [Mass/Vol] 9.8 mg/dL Normal 8.5-10.1 [facility] Comment on above: Performed By: #### L IPA, TSH, CANDIE, T7, CMP ####[facility] Aaqujwtjxy[address] [place], [place] [address]Dr. Villa Yanes Chloride [Moles/Vol] 106 mmol/L Normal 98-107 [facility] Comment on above: Performed By: #### L IPA, TSH, CANDIE, T7, CMP ####[facility] Yvynrkkhqe8[address] [place], [place] [address]Dr. Villa Yanes CO2 [Moles/Vol] 27.3 mmol/L Normal 21.0-32.0 [facility] Comment on above: Performed By: #### L IPA, TSH, CANDIE, T7, CMP ####[facility] Aojzupikuz9801[address] [place], [place] [address]Dr. Villa Yanes Creatinine [Mass/Vol] 1.23 mg/dL Normal 0.70-1.30 [facility] Comment on above: Performed By: #### L IPA, TSH, CANDIE, T7, CMP ####[facility] Bxnobvdmyl060[address] [place], [place] [address]Dr. Villa Yanes EGFR-AF PAKISTANI >60 Normal >=60 [facility] Comment on above: Performed By: #### L IPA, TSH, CANDIE, T7, CMP ####[facility] Ftziwfeaqx[address] [place], [place] [address]Dr. Villa Yanes EGFR-NON AF PAKISTANI 57 mL/min/1.73m2 Critically low >=60 [facility] Comment on above: Performed By: #### L IPA, TSH, CANDIE, T7, CMP ####[facility] Whkguzblgx0057[address] [place], [place] [address]Dr. Villa Yanes Globulin (S) [Mass/Vol] 3.7 g/dL Normal [facility] Comment on above: Performed By: #### L IPA, TSH, CANDIE, T7, CMP ####[facility] Lyycobwdfm44[address] [place] [address]Dr. Villa Yanes Glucose [Mass/Vol] 155 mg/dL Critically high 74-106 [facility] Comment on above: Performed By: #### L IPA, TSH, CANDIE, T7, CMP ####[facility] Jgrshcfydv38[address] [place], [place] [address]Dr. Villa Yanes Potassium [Moles/Vol] 4.4 mmol/L Normal 3.5-5.1 [facility] Comment on above: Performed By: #### L IPA, TSH, CANDIE, T7, CMP ####[facility] Qadfjfgilp22[address] [place], [place] [address]Dr. Villa Yanes Protein [Mass/Vol] 7.0 g/dL Normal 6.4-8.2 [facility] Comment on above: Performed By: #### L IPA, TSH, CANDIE, T7, CMP ####[facility] Azpxiswumn8541[address] [place], [place] [address]Dr. Villa Yanes Sodium [Moles/Vol] 142 mmol/L Normal 136-145 [facility] Comment on above: Performed By: #### L IPA, TSH, CANDIE, T7, CMP ####[facility] Judkchxxhz827[address] [place], [place] [address]Dr. Villa Yanes Urea nitrogen [Mass/Vol] 25.0 mg/dL Critically high 7.0-18.0 [facility] Comment on above: Performed By: #### L IPA, TSH, CANDIE, T7, CMP ####[facility] Mmojeyljeg6[address] [place], [place] [address]Dr. Villa Yanes Urea nitrogen/Creatinine [Mass ratio] 20.3 mg/mg Normal [facility] Comment on above: Performed By: #### L IPA, TSH, CANDIE, T7, CMP ####[facility] Kdftpetsel9[address] [place], [place] [address]Dr. Villa Yanes TSHon 07-30-2022 TSH 0.259 uIU/mL Critically low 0.358-3.740 [facility] Comment on above: Performed By: #### L IPA, TSH, CANDIE, T7, CMP ####[facility] Chmm[address]vy[address] [place] [address]Dr. Villa Joaquín XR CHEST 2 Von 07-30-2022 XR CHEST 2 V Normal [facility] CBC AUTO DIFFon 07-01-2022 BASO # 0.0 103/ul Normal 0.0-0.1 [facility] Comment on above: Performed By: #### C BC ####[facility] Cnrxxonmes5[address] [place] [address]Dr. Villa Yanes Basophils/100 WBC (Bld) 0.1 % Critically low 0.2-2.0 [facility] Comment on above: Performed By: #### C BC ####[facility] Wfqlpudwpt[address] [place], [place] [address]Dr. Villa Yanes EO # 0.1 103/ul Normal 0.0-0.7 [facility] Comment on above: Performed By: #### C BC ####[facility] Dpdrholnen15[address] [place], [place] [address]Dr. Villa Yanes Eosinophils/100 WBC (Bld) 0.5 % Critically low 0.9-7.0 [facility] Comment on above: Performed By: #### C BC ####[facility] Rhdgpdxabu5[address] [place], [place] [address]Dr. Villa Yanes Erythrocyte distribution width (RBC) [Ratio] 12.7 % Normal 11.0-15.0 [facility] Comment on above: Performed By: #### C BC ####[facility] Acmeeibhkd[address] [place], [place] [address]Dr. Villa Yanse Hematocrit (Bld) [Volume fraction] 37.6 % Critically low 42.0-54.0 [facility] Comment on above: Performed By: #### C BC ####[facility] Ccgxjlwuvw[address] [place], [place] [address]Dr. Villa Yanes Hemoglobin (Bld) [Mass/Vol] 12.2 g/dL Critically low 14.0-18.0 [facility] Comment on above: Performed By: #### C BC ####[facility] Jmjlwafnyf65[address] [place], [place] [address]Dr. Villa Yanes IG # 0.10 10e3/ul Critically high 0.00-0.03 [facility] Comment on above: Performed By: #### C BC ####[facility] Twhupwsynj[address] [place] [address]DrBrenden Villa Joaquín IG % 1.0 % Critically high 0.0-0.5 [facility] Comment on above: Performed By: #### C BC ####[facility] Xaopemqisz7599 [place] [address]DrBrenden Villa Joaquín LYMPH # 1.4 103/ul Normal 1.2-3.8 [facility] Comment on above: Performed By: #### C BC ####[facility] Vdleqwiojw4903 [place] [address]DrBrenden Yanes Lymphocytes/100 WBC (Bld) 13.5 % Critically low 20.5-60.0 [facility] Comment on above: Performed By: #### C BC ####[facility] Esezrvjiok[address] [place], [place] [address]DrBrenden Brooklynkaren Yanes MANUAL DIFF REQ NO Normal [facility] Comment on above: Performed By: #### C BC ####[facility] Tktrdpivzk0830 [place] [address]DrBrenden Villa Joaquín MCH (RBC) [Entitic mass] 32.7 pg Normal 25.9-34.0 [facility] Comment on above: Performed By: #### C BC ####[facility] Uneoejuhjh2367 [place] [address]DrBrenden Villa Joaquín MCHC (RBC) [Mass/Vol] 32.4 g/dL Normal 29.9-35.2 [facility] Comment on above: Performed By: #### C BC ####[facility] Eysozzwegt0193 [place] [address]DrBrenden Yanes MCV (RBC) [Entitic vol] 100.8 fL Critically high 80.0-94.0 [facility] Comment on above: Performed By: #### C BC ####[facility] Pzlcgsregv95[address] [place], [place] [address]DrBrenden Yanes MONO # 0.8 103/ul Normal 0.3-0.8 [facility] Comment on above: Performed By: #### C BC ####[facility] Upgkqpfzua7312 [place] [address]Dr. Villa Yanes Monocytes/100 WBC (Bld) 7.9 % Normal 1.7-12.0 [facility] Comment on above: Performed By: #### C BC ####[facility] Ikicghqvhf9364 [place] [address]Dr. Villa Yanes NEUT # 7.9 103/ul Critically high 1.4-6.5 [facility] Comment on above: Performed By: #### C BC ####[facility] Adpudfqsrn1114 [place] [address]Dr. Villa Yanes Neutrophils/100 WBC (Bld) 77.0 % Critically high 43.0-75.0 [facility] Comment on above: Performed By: #### C BC ####[facility] Sjwakwtxbl6[address] [place], [place] [address]Dr. Villa Yanes Platelet mean volume (Bld) [Entitic vol] 10.1 fL Normal 9.5-13.5 [facility] Comment on above: Performed By: #### C BC ####[facility] Ptbxpmgwij064512 [address] [place], [place] [address]Dr. Villa Yanes PLT 196 103/ul Normal 150-450 [facility] Comment on above: Performed By: #### C BC ####[facility] Cpyfvndyop5686 [place] [address]Dr. Villa Yanes RBC 3.73 106/ul Critically low 4.70-6.10 [facility] Comment on above: Performed By: #### C BC ####[facility] Serxrinolc4434 [place] [id number]. Villa Yanes WBC 10.3 103/ul Normal 4.0-11.0 [facility] Comment on above: Performed By: #### C BC ####[facility] Zycysbfels0250 [place] [id number]. Villa Yanes CRPon 07-01-2022 CRP 0.8 mg/dL Normal <=1.0 [facility] Comment on above: Performed By: #### B MP, CRP ####[facility] Gpxzjsmrpe5109 [place] [address]Dr. Villa Yanes PROF CHEM 8 (BAS METB)on Anion gap [Moles/Vol] 12.1 mmol/L Normal [facility] Comment on above: Performed By: #### B MP, CRP ####[facility] Gnmnwwedwp0585[address] [place], [place] [address]Dr. Villa Yanes Calcium [Mass/Vol] 9.2 mg/dL Normal 8.5-10.1 [facility] Comment on above: Performed By: #### B MP, CRP ####[facility] Gzfhcxziff763[address] [place], [place] [address]Dr. Villa Yanes Chloride [Moles/Vol] 105 mmol/L Normal 98-107 [facility] Comment on above: Performed By: #### B MP, CRP ####[facility] Zmzsxptqbh2792[address] [place], [place] [address]Dr. Villa Yanes CO2 [Moles/Vol] 26.8 mmol/L Normal 21.0-32.0 [facility] Comment on above: Performed By: #### B MP, CRP ####[facility] Qyhbnqdmkz0577[address] [place], [place] [address]Dr. Villa Yanes Creatinine [Mass/Vol] 1.11 mg/dL Normal 0.70-1.30 [facility] Comment on above: Performed By: #### B MP, CRP ####[facility] Hvzliejwnl989[address] [place], [place] [address]Dr. Villa Yanes EGFR-AF PAKISTANI >60 Normal >=60 [facility] Comment on above: Performed By: #### B MP, CRP ####[facility] Qmbminafkj734112 [address] [place], [place] [address]Dr. Villa Yanes EGFR-NON AF PAKISTANI >60 Normal >=60 [facility] Comment on above: Performed By: #### B MP, CRP ####[facility] Oqyhhnirdm4909[address] [place], [place] [address]Dr. Villa Yanes Glucose [Mass/Vol] 136 mg/dL Critically high 74-106 [facility] Comment on above: Performed By: #### B MP, CRP ####[facility] Nflvijxkmq766512 [address] [place], [place] [address]Dr. Villa Yanes Potassium [Moles/Vol] 3.9 mmol/L Normal 3.5-5.1 [facility] Comment on above: Performed By: #### B MP, CRP ####[facility] Wyklxcchij895312 [address] [place], [place] [address]Dr. Villa Joaquín Sodium [Moles/Vol] 140 mmol/L Normal 136-145 [facility] Comment on above: Performed By: #### B MP, CRP ####[facility] Vdagxxkikh403612 [address] [place], [place] [address]Dr. Villa Joaquín Urea nitrogen [Mass/Vol] 28.0 mg/dL Critically high 7.0-18.0 [facility] Comment on above: Performed By: #### B MP, CRP ####[facility] Okuvoeremr6267[address] [place], [place] [address]Dr. Villa Joaquín Urea nitrogen/Creatinine [Mass ratio] 25.2 mg/mg Normal [facility] Comment on above: Performed By: #### B MP, CRP ####[facility] Fkbdvhieti339412 [address] [place], [place] [address]Dr. Villa Joaquín SED RATE WESTERGRENon 2022 SED RATE 32 mm/hr Critically high <=20 [facility] Comment on above: Performed By: #### S EDR ####[facility] Dcmtlapept922812 [address] [place], [place] [address]Dr. Villa Joaquín XR LSPINE 2_3 VIEWSon 2022 XR LSPINE 2_3 VIEWS Normal [facility] CBC AUTO DIFFon 06-29-2022 BASO # 0.0 103/ul Normal 0.0-0.1 [facility] Comment on above: Performed By: #### C BC ####[facility] Trrshjdvyf5904[address] [place], [place] [address]Dr. Villa Yanes Basophils/100 WBC (Bld) 0.1 % Critically low 0.2-2.0 [facility] Comment on above: Performed By: #### C BC ####[facility] Ajadffgkoh5250 [place] [address]DrBrenden Yanes EO # 0.0 103/ul Normal 0.0-0.7 [facility] Comment on above: Performed By: #### C BC ####[facility] Msckeisnki3682[address] [place], [place] [address]DrBrenden Yanes Eosinophils/100 WBC (Bld) 0.0 % Critically low 0.9-7.0 [facility] Comment on above: Performed By: #### C BC ####[facility] Ypmhdbrajx5815[address] [place], [place] [address]DrBrenden Yanes Erythrocyte distribution width (RBC) [Ratio] 12.6 % Normal 11.0-15.0 [facility] Comment on above: Performed By: #### C BC ####[facility] Sttlcbcftg0172[address] [place], [place] [address]DrBrenden Yanes Hematocrit (Bld) [Volume fraction] 31.6 % Critically low 42.0-54.0 [facility] Comment on above: Performed By: #### C BC ####[facility] Clabglorst5375[address] [place], [place] [address]DrBrenden Yanes Hemoglobin (Bld) [Mass/Vol] 10.1 g/dL Critically low 14.0-18.0 [facility] Comment on above: Performed By: #### C BC ####[facility] Qiimemahpf220[address] [place], [place] [address]DrBrenden Yanes IG # 0.10 10e3/ul Critically high 0.00-0.03 [facility] Comment on above: Performed By: #### C BC ####[facility] Vnuktiwpqv0104[address] [place], [place] [address]DrBrenden Yanes IG % 0.9 % Critically high 0.0-0.5 [facility] Comment on above: Performed By: #### C BC ####[facility] Pxkrectcnw04[address] [place], [place] [address]DrBrenden Yanes LYMPH # 0.3 103/ul Critically low 1.2-3.8 [facility] Comment on above: Performed By: #### C BC ####[facility] Qedaolhmvj5340 [place] [address]DrBrenden Yanes Lymphocytes/100 WBC (Bld) 2.5 % Critically low 20.5-60.0 [facility] Comment on above: Performed By: #### C BC ####[facility] Jgbyaewbkw4096[address] [place], [place] [address]DrBrenden Yanes MANUAL DIFF REQ NO Normal [facility] Comment on above: Performed By: #### C BC ####[facility] Kuwlshffia3627[address] [place], [place] [address]DrBrenden Yanes MCH (RBC) [Entitic mass] 32.1 pg Normal 25.9-34.0 [facility] Comment on above: Performed By: #### C BC ####[facility] Iocgfjfqau8401[address] [place], [place] [address]DrBrenden Yanes MCHC (RBC) [Mass/Vol] 32.0 g/dL Normal 29.9-35.2 [facility] Comment on above: Performed By: #### C BC ####[facility] Srctgxvbew8939[address] [place], [place] [address]DrBrenden Yanes MCV (RBC) [Entitic vol] 100.3 fL Critically high 80.0-94.0 [facility] Comment on above: Performed By: #### C BC ####[facility] Vfmosectze7667[address] [place], [place] [address]DrBrenden Yanes MONO # 0.2 103/ul Critically low 0.3-0.8 [facility] Comment on above: Performed By: #### C BC ####[facility] Tnlcftnurw333[address] [place], [place] [address]DrBrenden Yanes Monocytes/100 WBC (Bld) 1.8 % Normal 1.7-12.0 [facility] Comment on above: Performed By: #### C BC ####[facility] Ljbyeoxdqc3491[address] [place], [place] [address]DrBrenden Yanes NEUT # 10.8 103/ul Critically high 1.4-6.5 [facility] Comment on above: Performed By: #### C BC ####[facility] Ihfsnowrvw3075 [place] [address]DrBrenden Yanes Neutrophils/100 WBC (Bld) 94.7 % Critically high 43.0-75.0 [facility] Comment on above: Performed By: #### C BC ####[facility] Qsmdzsszep1660 [place] [address]Dr. Villa Yanes Platelet mean volume (Bld) [Entitic vol] 10.1 fL Normal 9.5-13.5 [facility] Comment on above: Performed By: #### C BC ####[facility] Cnhiyfhhpo5779[address] [place], [place] [address]DrBrenden Yanes PLT 200 103/ul Normal 150-450 [facility] Comment on above: Performed By: #### C BC ####[facility] Oljlnnbhkk079[address] [place], [place] [address]DrBrenden Yanes RBC 3.15 106/ul Critically low 4.70-6.10 [facility] Comment on above: Performed By: #### C BC ####[facility] Pfdvdrkcll536[address] [place], [place] [address]DrBrenden Yanes WBC 11.4 103/ul Critically high 4.0-11.0 [facility] Comment on above: Performed By: #### C BC ####[facility] Vimfuooxxp5624[address] [place], [place] [address]DrBrenden Yanes POINT OF CARE GLUCOSEon Glucose [Mass/Vol] 225 mg/dL Critically high 74-106 [facility] Comment on above: Performed By: #### P OCGLUC ####[facility] Vasuhbyraq9267[address] [place], [place] [address]DrBrenden Yanes PROF CHEM 8 (BAS METB)on Anion gap [Moles/Vol] 15.6 mmol/L Normal [facility] Comment on above: Performed By: #### B MP ####[facility] Ceirzmzleh8534[address] [place], [place] [address]Dr. Villa Yanes Calcium [Mass/Vol] 8.6 mg/dL Normal 8.5-10.1 [facility] Comment on above: Performed By: #### B MP ####[facility] Rluzmsqzvw6956 [place] [address]Dr. Villa Yanes Chloride [Moles/Vol] 106 mmol/L Normal 98-107 [facility] Comment on above: Performed By: #### B MP ####[facility] Tnjqbqxflt4303 [place] [address]Dr. Villa Yanes CO2 [Moles/Vol] 22.6 mmol/L Normal 21.0-32.0 [facility] Comment on above: Performed By: #### B MP ####[facility] Qqddiudqtw4941 [place] [address]Dr. Villa Yanes Creatinine [Mass/Vol] 1.39 mg/dL Critically high 0.70-1.30 [facility] Comment on above: Performed By: #### B MP ####[facility] Mnbqgacbwg1999 [place] [address]Dr. Villa Yanse EGFR-AF PAKISTANI 60 mL/min/1.73m2 Normal >=60 [facility] Comment on above: Performed By: #### B MP ####[facility] Sclklnojhp9531[address] [place], [place] [address]Dr. Villa Yanes EGFR-NON AF PAKISTANI 49 mL/min/1.73m2 Critically low >=60 [facility] Comment on above: Performed By: #### B MP ####[facility] Ispzxisrxd1767 [place] [address]Dr. Villa Yanes Glucose [Mass/Vol] 229 mg/dL Critically high 74-106 [facility] Comment on above: Performed By: #### B MP ####[facility] Tuuuuowrww3956 [place] [address]Dr. Villa Yanes Potassium [Moles/Vol] 4.2 mmol/L Normal 3.5-5.1 [facility] Comment on above: Performed By: #### B MP ####[facility] Uhledzpnvk7224 [place] [address]Dr. Villa Yanes Sodium [Moles/Vol] 140 mmol/L Normal 136-145 [facility] Comment on above: Performed By: #### B MP ####[facility] Tndcjekpmi6423[address] [place], [place] [address]Dr. Villa Yanes Urea nitrogen [Mass/Vol] 47.0 mg/dL Critically high 7.0-18.0 [facility] Comment on above: Performed By: #### B MP ####[facility] Yhpcgwhyol7762[address] [place], [place] [address]Dr. Villa Yanes Urea nitrogen/Creatinine [Mass ratio] 33.8 mg/mg Normal [facility] Comment on above: Performed By: #### B MP ####[facility] Sgpavuhcgs3193[address] [place], [place] [address]Dr. Villa Yanes CBC AUTO DIFFon 06-28-2022 BASO # 0.0 103/ul Normal 0.0-0.1 [facility] Comment on above: Performed By: #### C BC ####[facility] Fiumsctcts5848[address] [place], [place] [address]Dr. Villa Joaquín Basophils/100 WBC (Bld) 0.1 % Critically low 0.2-2.0 [facility] Comment on above: Performed By: #### C BC ####[facility] Yytxypjvsh2291[address] [place], [place] [address]Dr. Villa Yanes EO # 0.0 103/ul Normal 0.0-0.7 [facility] Comment on above: Performed By: #### C BC ####[facility] Slgcjblapj4037[address] [place], [place] [address]Dr. Villa Joaquín Eosinophils/100 WBC (Bld) 0.1 % Critically low 0.9-7.0 [facility] Comment on above: Performed By: #### C BC ####[facility] Pfstfjxzpd5825[address] [place], [place] [address]Dr. Villa Yanes Erythrocyte distribution width (RBC) [Ratio] 12.6 % Normal 11.0-15.0 [facility] Comment on above: Performed By: #### C BC ####[facility] Qayuywbeiu0275 [place] [address]Dr. Villa Yanes Hematocrit (Bld) [Volume fraction] 33.4 % Critically low 42.0-54.0 [facility] Comment on above: Performed By: #### C BC ####[facility] Djtlqkzfuc7037 [place] [address]Dr. Villa Yanes Hemoglobin (Bld) [Mass/Vol] 10.5 g/dL Critically low 14.0-18.0 [facility] Comment on above: Performed By: #### C BC ####[facility] Ntpktdjhvd7402 [place] [address]Dr. Villa Yanes IG # 0.12 10e3/ul Critically high 0.00-0.03 [facility] Comment on above: Performed By: #### C BC ####[facility] Wjxbyuznbz5561[address] [place], [place] [address]Dr. Villa Yanes IG % 0.9 % Critically high 0.0-0.5 [facility] Comment on above: Performed By: #### C BC ####[facility] Yeywbftaog0023 [place] [address]Dr. Villa Yanes LYMPH # 0.5 103/ul Critically low 1.2-3.8 [facility] Comment on above: Performed By: #### C BC ####[facility] Drtnhqxvds8481 [place] [address]Dr. Villa Yanes Lymphocytes/100 WBC (Bld) 3.6 % Critically low 20.5-60.0 [facility] Comment on above: Performed By: #### C BC ####[facility] Dpyjttilmt8433 [place] [address]Dr. Villa Yanes MANUAL DIFF REQ NO Normal [facility] Comment on above: Performed By: #### C BC ####[facility] Kjvonvtggs497[address] [place], [place] [address]Dr. Villa Yanes MCH (RBC) [Entitic mass] 31.4 pg Normal 25.9-34.0 [facility] Comment on above: Performed By: #### C BC ####[facility] Oniwnsmwjr5007 [place] [address]Dr. Villa Yanes MCHC (RBC) [Mass/Vol] 31.4 g/dL Normal 29.9-35.2 [facility] Comment on above: Performed By: #### C BC ####[facility] Wrckpacggs4896 [place] [address]Dr. Villa Yanes MCV (RBC) [Entitic vol] 100.0 fL Critically high 80.0-94.0 [facility] Comment on above: Performed By: #### C BC ####[facility] Hwnvgddpqr[address] [place], [place] [address]Dr. Villa Joaquín MONO # 0.2 103/ul Critically low 0.3-0.8 [facility] Comment on above: Performed By: #### C BC ####[facility] Qqzggnajmn1846[address] [place], [place] [address]Dr. Villa Yanes Monocytes/100 WBC (Bld) 1.6 % Critically low 1.7-12.0 [facility] Comment on above: Performed By: #### C BC ####[facility] Ivmvesegjj5411[address] [place], [place] [address]Dr. Villa Yanes NEUT # 12.5 103/ul Critically high 1.4-6.5 [facility] Comment on above: Performed By: #### C BC ####[facility] Uolkqtoitj4626[address] [place], [place] [address]Dr. Villa Yanes Neutrophils/100 WBC (Bld) 93.7 % Critically high 43.0-75.0 [facility] Comment on above: Performed By: #### C BC ####[facility] Aihbmkmdxc2342[address] [place], [place] [address]Dr. Villa Yanes Platelet mean volume (Bld) [Entitic vol] 10.0 fL Normal 9.5-13.5 [facility] Comment on above: Performed By: #### C BC ####[facility] Qaccnuoqsz[address] [place], [place] [address]Dr. Villa Yanes PLT 242 103/ul Normal 150-450 [facility] Comment on above: Performed By: #### C BC ####[facility] Yzjroqtjow5060 [place] [address]Dr. Brooklynkaren Yanes RBC 3.34 106/ul Critically low 4.70-6.10 [facility] Comment on above: Performed By: #### C BC ####[facility] Xyrvperiii8560 [place] [address]Dr. Brooklynkaren Joaquín WBC 13.4 103/ul Critically high 4.0-11.0 [facility] Comment on above: Performed By: #### C BC ####[facility] Xuakstfdpi6249 [place] [address]Dr. Villa Yanes POINT OF CARE GLUCOSEon Glucose [Mass/Vol] 238 mg/dL Critically high 74-106 [facility] Comment on above: Performed By: #### P OCGLUC ####[facility] Mzwqffnoct6538 [place] [address]Dr. Villa Yanes Glucose [Mass/Vol] 202 mg/dL Critically high 74-106 [facility] Comment on above: Performed By: #### P OCGLUC ####[facility] Xelsljemdu3751 [place] [address]Dr. Villa Yanes Glucose [Mass/Vol] 168 mg/dL Critically high 74-106 [facility] Comment on above: Performed By: #### P OCGLUC ####[facility] Uacalumdod6115 [place] [address]Dr. Villa Yanes PROF CHEM 8 (BAS METB)on Anion gap [Moles/Vol] 11.5 mmol/L Normal [facility] Comment on above: Performed By: #### B MP ####[facility] Nzggaoxrna1306 [place] [address]Dr. Villa Yanes Calcium [Mass/Vol] 8.9 mg/dL Normal 8.5-10.1 [facility] Comment on above: Performed By: #### B MP ####[facility] Xzbkvkkeof7706 [place] [address]Dr. Villa Yanes Chloride [Moles/Vol] 106 mmol/L Normal 98-107 [facility] Comment on above: Performed By: #### B MP ####[facility] Nmgapfnzyh5624 [place] [address]Dr. Villa Yanes CO2 [Moles/Vol] 25.3 mmol/L Normal 21.0-32.0 [facility] Comment on above: Performed By: #### B MP ####[facility] Qqmgszhpbz1917 [place] [address]Dr. Villa Yanes Creatinine [Mass/Vol] 1.39 mg/dL Critically high 0.70-1.30 [facility] Comment on above: Performed By: #### B MP ####[facility] Noihlcvyih0831 [place] [address]Dr. Brooklynkaren Joaquín EGFR-AF PAKISTANI 60 mL/min/1.73m2 Normal >=60 [facility] Comment on above: Performed By: #### B MP ####[facility] Kjeckomazz1366 [place] [address]Dr. [place]karen Joaquín EGFR-NON AF PAKISTANI 49 mL/min/1.73m2 Critically low >=60 [facility] Comment on above: Performed By: #### B MP ####[facility] Ezktwixegp8574 [place] [address]Dr. Villa Joaquín Glucose [Mass/Vol] 191 mg/dL Critically high 74-106 [facility] Comment on above: Performed By: #### B MP ####[facility] Fduodfvgdi8596 [place] [address]Dr. Villa Yanes Potassium [Moles/Vol] 4.8 mmol/L Normal 3.5-5.1 [facility] Comment on above: Performed By: #### B MP ####[facility] Hwswocxofy[address] [place], [place] [address]Dr. Villa Yanes Sodium [Moles/Vol] 138 mmol/L Normal 136-145 [facility] Comment on above: Performed By: #### B MP ####[facility] Igjpreupzb6106 [place] [address]Dr. Villa Yanes Urea nitrogen [Mass/Vol] 48.0 mg/dL Critically high 7.0-18.0 [facility] Comment on above: Performed By: #### B MP ####[facility] Adswtnypos46[address] [place], [place] [address]Dr. Villa Yanes Urea nitrogen/Creatinine [Mass ratio] 34.5 mg/mg Normal [facility] Comment on above: Performed By: #### B MP ####[facility] Wcriavwrzg59[address] [place], [place] [address]Dr. Villa Yanes XR CHEST 2 Von 06-28-2022 XR CHEST 2 V Normal [facility] CBC AUTO DIFFon 06-27-2022 BASO # 0.0 103/ul Normal 0.0-0.1 [facility] [facility] Comment on above: Performed By: #### C BC ####[facility] Hgoxjgqrxk[address] [place], [place] [address]Dr. Villa Yanes Basophils/100 WBC (Bld) 0.2 % Normal 0.2-2.0 [facility] Comment on above: Performed By: #### C BC ####[facility] Ccycrkopsx14[address] [place], [place] [address]Dr. Villa Yanes EO # 0.0 103/ul Normal 0.0-0.7 [facility] Comment on above: Performed By: #### C BC ####[facility] Kbgschwhni[address] [place], [place] [address]Dr. Villa Yanes Eosinophils/100 WBC (Bld) 0.0 % Critically low 0.9-7.0 [facility] Comment on above: Performed By: #### C BC ####[facility] Xjafsgokxc[address] [place], [place] [address]Dr. Villa Yanes Erythrocyte distribution width (RBC) [Ratio] 12.6 % Normal 11.0-15.0 [facility] Comment on above: Performed By: #### C BC ####[facility] Ceaeznyizh[address] [place], [place] [address]Dr. Villa Yanes Hematocrit (Bld) [Volume fraction] 33.9 % Critically low 42.0-54.0 [facility] Comment on above: Performed By: #### C BC ####[facility] Hprcjerruh50[address] [place] [address]Dr. Villa Yanes Hemoglobin (Bld) [Mass/Vol] 10.7 g/dL Critically low 14.0-18.0 [facility] Comment on above: Performed By: #### C BC ####[facility] Mvedfeugaj[address] [place] [id number]. Villa Yanes IG # 0.08 10e3/ul Critically high 0.00-0.03 [facility] Comment on above: Performed By: #### C BC ####[facility] Dafvjirrfm6942 [place] [address]Dr. Villa Yanes IG % 1.3 % Critically high 0.0-0.5 [facility] Comment on above: Performed By: #### C BC ####[facility] Sxkgwvsujs4518 [place] [address]Dr. Villa Yanes LYMPH # 0.3 103/ul Critically low 1.2-3.8 [facility] Comment on above: Performed By: #### C BC ####[facility] Nqioulpzsp1443 [place] [address]Dr. Villa Yanes Lymphocytes/100 WBC (Bld) 5.1 % Critically low 20.5-60.0 [facility] Comment on above: Performed By: #### C BC ####[facility] Aowealqrkv1722 [place] [address]Dr. Villa Yanes MANUAL DIFF REQ NO Normal [facility] Comment on above: Performed By: #### C BC ####[facility] Zawpjegpmq3821 [place] [address]Dr. Villa Yanes MCH (RBC) [Entitic mass] 31.4 pg Normal 25.9-34.0 [facility] Comment on above: Performed By: #### C BC ####[facility] Sfbnfyxlba9424 [place] [address]Dr. Villa Yanes MCHC (RBC) [Mass/Vol] 31.6 g/dL Normal 29.9-35.2 [facility] Comment on above: Performed By: #### C BC ####[facility] Zdkntgamum8085 [place] [id number]. Villa Yanes MCV (RBC) [Entitic vol] 99.4 fL Critically high 80.0-94.0 [facility] Comment on above: Performed By: #### C BC ####[facility] Rlfyhxqilq8426 [place] [address]Dr. Villa Yanes MONO # 0.0 103/ul Critically low 0.3-0.8 [facility] Comment on above: Performed By: #### C BC ####[facility] Cyonxzwfvk5234 [place] [address]Dr. Villa Yanes Monocytes/100 WBC (Bld) 0.7 % Critically low 1.7-12.0 [facility] Comment on above: Performed By: #### C BC ####[facility] Msjnhtfhxf100[address] [place], [place] [address]Dr. Villa Yanes NEUT # 5.6 103/ul Normal 1.4-6.5 [facility] Comment on above: Performed By: #### C BC ####[facility] Nmuuqgorol3743[address] [place], [place] [address]Dr. Villa Yanes Neutrophils/100 WBC (Bld) 92.7 % Critically high 43.0-75.0 [facility] Comment on above: Performed By: #### C BC ####[facility] Cxhvhxciew2591[address] [place], [place] [address]Dr. Villa Yanes Platelet mean volume (Bld) [Entitic vol] 9.7 fL Normal 9.5-13.5 [facility] Comment on above: Performed By: #### C BC ####[facility] Gcjplgaqjy24[address] [place], [place] [id number]. Villa Joaquín PLT 221 103/ul Normal 150-450 [facility] Comment on above: Performed By: #### C BC ####[facility] Mogqrtchum8[address] [place], [place] [address]Dr. Brooklynkaren Joaquín RBC 3.41 106/ul Critically low 4.70-6.10 [facility] Comment on above: Performed By: #### C BC ####[facility] Bgmhfpxspd6694 [place] [address]Dr. Villa Yanes WBC 6.1 103/ul Normal 4.0-11.0 [facility] Comment on above: Performed By: #### C BC ####[facility] Ffywoccjok2041[address] [place], [place] [address]Dr. Villa Joaquín POINT OF CARE GLUCOSEon Glucose [Mass/Vol] 236 mg/dL Critically high 74-106 [facility] Comment on above: Performed By: #### P OCGLUC ####[facility] Aqcpsmbxqf9[address] [place], [place] [address]Dr. Villa Yanes Glucose [Mass/Vol] 156 mg/dL Critically high 74-106 [facility] Comment on above: Performed By: #### P OCGLUC ####[facility] Pjxiwdmlsr18[address] [place], [place] [address]Dr. Villa Yanes Glucose [Mass/Vol] 229 mg/dL Critically high -106 [facility] Comment on above: Performed By: #### P OCGLUC ####[facility] Bjehpcokem2043[address] [place], [place] [address]Dr. Brooklynkaren Yanes PROF CHEM 8 (BAS METB)on Anion gap [Moles/Vol] 12.7 mmol/L Normal [facility] Comment on above: Performed By: #### B MP ####[facility] Mjtqbogudw7244[address] [place], [place] [address]Dr. Villa Joaquín Calcium [Mass/Vol] 8.4 mg/dL Critically low 8.5-10.1 [facility] Comment on above: Performed By: #### B MP ####[facility] Xbrrqkurmh0[address] [place], [place] [address]Dr. Villa Joaquín Chloride [Moles/Vol] 103 mmol/L Normal 98-107 [facility] Comment on above: Performed By: #### B MP ####[facility] Vnrshlongz8[address] [place], [place] [address]Dr. Villa Yanes CO2 [Moles/Vol] 24.1 mmol/L Normal 21.0-32.0 [facility] Comment on above: Performed By: #### B MP ####[facility] Fmlegndwbv7364 [place] [address]Dr. Villa Yanes Creatinine [Mass/Vol] 1.34 mg/dL Critically high 0.70-1.30 [facility] Comment on above: Performed By: #### B MP ####[facility] Reflhrphij5377 [place] [address]Dr. Villa Joaquín EGFR-AF PAKISTANI >60 Normal >=60 [facility] Comment on above: Performed By: #### B MP ####[facility] Nuxteezvik5907 [place] [address]Dr. Villa Joaquín EGFR-NON AF PAKISTANI 51 mL/min/1.73m2 Critically low >=60 [facility] Comment on above: Performed By: #### B MP ####[facility] Yaihbggixz7487[address] [place], [place] [address]Dr. Villa Yanes Glucose [Mass/Vol] 249 mg/dL Critically high 74-106 [facility] Comment on above: Performed By: #### B MP ####[facility] Dnbdzketbc6267 [place] [address]Dr. Villa Yanes Potassium [Moles/Vol] 4.8 mmol/L Normal 3.5-5.1 [facility] Comment on above: Performed By: #### B MP ####[facility] Wtkdwjpktq4799[address] [place], [place] [address]Dr. Villa Yanes Sodium [Moles/Vol] 135 mmol/L Critically low 136-145 [facility] Comment on above: Performed By: #### B MP ####[facility] Xgivxcsjzo4381 [place] [address]Dr. Villa Yanes Urea nitrogen [Mass/Vol] 37.0 mg/dL Critically high 7.0-18.0 [facility] Comment on above: Performed By: #### B MP ####[facility] Aonammcvpj75[address] [place], [place] [address]Dr. Villa Yanes Urea nitrogen/Creatinine [Mass ratio] 27.6 mg/mg Normal [facility] Comment on above: Performed By: #### B MP ####[facility] Xsmqajlbyt2406 [place] [address]Dr. Villa Joaquín T3, TOTAL (TRIIODOTHYRONINE) on 06-27-2022 T3, TOTAL 70 ng/dL Critically low 71-180 [facility] Comment on above: Performed By: #### T 3TOTAL ####[facility] Cqhgikziyf4547 [place] [address]Dr. Villa Joaquín CBC AUTO DIFFon 06-26-2022 BASO # 0.0 103/ul Normal 0.0-0.1 [facility] Comment on above: Performed By: #### C BC ####[facility] Dcidvucddo84[address] [place], [place] [address]Dr. Villa Yanes Basophils/100 WBC (Bld) 0.3 % Normal 0.2-2.0 [facility] Comment on above: Performed By: #### C BC ####[facility] Ajcmrpiljd739[address] [place], [place] [address]Dr. Villa Yanes EO # 0.1 103/ul Normal 0.0-0.7 [facility] Comment on above: Performed By: #### C BC ####[facility] Qltztdoodh5[address] [place], [place] [address]Dr. Brooklynkaren Yanes Eosinophils/100 WBC (Bld) 0.4 % Critically low 0.9-7.0 [facility] Comment on above: Performed By: #### C BC ####[facility] Uywalbgplr[address] [place], [place] [address]Dr. Brooklynkaren Joaquín Erythrocyte distribution width (RBC) [Ratio] 12.3 % Normal 11.0-15.0 [facility] Comment on above: Performed By: #### C BC ####[facility] Dtoampcsoq[address] [place], [place] [address]Dr. Villa Yanes Hematocrit (Bld) [Volume fraction] 34.6 % Critically low 42.0-54.0 [facility] Comment on above: Performed By: #### C BC ####[facility] Eeosjwsajy78[address] [place], [place] [address]Dr. Villa Yanes Hemoglobin (Bld) [Mass/Vol] 11.6 g/dL Critically low 14.0-18.0 [facility] Comment on above: Performed By: #### C BC ####[facility] Ziktrwsjmo1721 [place] [address]DrBrenden Yanes IG # 0.13 10e3/ul Critically high 0.00-0.03 [facility] Comment on above: Performed By: #### C BC ####[facility] Libxcyvtpb7512 [place] [address]DrBrenden Yanes IG % 1.0 % Critically high 0.0-0.5 [facility] Comment on above: Performed By: #### C BC ####[facility] Anwgtyienf1336 [place] [address]DrBrenden Yanes LYMPH # 1.6 103/ul Normal 1.2-3.8 [facility] Comment on above: Performed By: #### C BC ####[facility] Qjslokvhbe8294 [place] [address]DrBrenden Yanes Lymphocytes/100 WBC (Bld) 11.9 % Critically low 20.5-60.0 [facility] Comment on above: Performed By: #### C BC ####[facility] Truqnjfkck4020 [place] [address]DrBrenden Yanes MANUAL DIFF REQ NO Normal [facility] Comment on above: Performed By: #### C BC ####[facility] Yfleydmmxl0259 [place] [address]DrBrenden Yanes MCH (RBC) [Entitic mass] 32.3 pg Normal 25.9-34.0 [facility] Comment on above: Performed By: #### C BC ####[facility] Sibhokmydy6532 [place] [id number] Yanes MCHC (RBC) [Mass/Vol] 33.5 g/dL Normal 29.9-35.2 [facility] Comment on above: Performed By: #### C BC ####[facility] Yhwszesqjg3368 [place] [address]DrBrenden Yanes MCV (RBC) [Entitic vol] 96.4 fL Critically high 80.0-94.0 [facility] Comment on above: Performed By: #### C BC ####[facility] Vpzxouotrk7025 [place] [address]Dr. Villa Yanes MONO # 0.7 103/ul Normal 0.3-0.8 [facility] Comment on above: Performed By: #### C BC ####[facility] Dbsehzemwf5328 [place] [address]Dr. Villa Joaquín Monocytes/100 WBC (Bld) 5.6 % Normal 1.7-12.0 [facility] Comment on above: Performed By: #### C BC ####[facility] Eqfezxsais3430 [place] [address]Dr. Villa Yanes NEUT # 10.5 103/ul Critically high 1.4-6.5 [facility] Comment on above: Performed By: #### C BC ####[facility] Ayosbbhzxf1320 [place] [address]Dr. iVlla Yanes Neutrophils/100 WBC (Bld) 80.8 % Critically high 43.0-75.0 [facility] Comment on above: Performed By: #### C BC ####[facility] Aqhiktgmjj7960 [place] [address]Dr. Villa Joaquín Platelet mean volume (Bld) [Entitic vol] 9.1 fL Critically low 9.5-13.5 [facility] Comment on above: Performed By: #### C BC ####[facility] Qzgvdhffft3138 [place] [id number]. Villa Joaquín PLT 266 103/ul Normal 150-450 [facility] Comment on above: Performed By: #### C BC ####[facility] Pfvwqmpnxb3906 [place] [address]Dr. Villa Yanes RBC 3.59 106/ul Critically low 4.70-6.10 [facility] Comment on above: Performed By: #### C BC ####[facility] Mozgtevmhg4948 [place] [address]Dr. Villa Yanes WBC 13.1 103/ul Critically high 4.0-11.0 [facility] Comment on above: Performed By: #### C BC ####[facility] Ghoddjtrvf0583 [place] [address]Dr. Villa Yanes CULTURE URINEon 06-26-2022 CULTURE URINE Culture Observations : LIGHT GROWTH OF MIXED SKIN ARACELI. NO POTENTIAL PATHOGENS SEEN. Normal [facility] Comment on above: Performed By: #### U RCX ####[facility] Ufkfafjjiv63[address] [place], [place] [address]Dr. Villa Joaquín LACTATE/LACTIC ACIDon 2022 Lactate [Moles/Vol] 1.0 mmol/L Normal 0.4-1.9 [facility] Comment on above: Performed By: #### L ACT ####[facility] Ysqojdcvou458[address] [place], [place] [address]Dr. Villa Yanes POINT OF CARE GLUCOSEon Glucose [Mass/Vol] 242 mg/dL Critically high 74-106 [facility] Comment on above: Performed By: #### P OCGLUC ####[facility] Hfjhduecrm[address] [place], [place] [address]Dr. Villa Yanes Glucose [Mass/Vol] 140 mg/dL Critically high 74-106 [facility] Comment on above: Performed By: #### P OCGLUC ####[facility] Kvjagitqgt2902[address] [place], [place] [address]Dr. Villa Yanes PROF 14(COMP METB)on 023 Albumin [Mass/Vol] 3.0 g/dL Critically low 3.4-5.0 [facility] Comment on above: Performed By: #### C MP, T4, TSH ####[facility] Oxmdmhzdqz0323 [place] [address]Dr. Villa Yanes Albumin/Globulin [Mass ratio] 0.9 {ratio} Normal [facility] Comment on above: Performed By: #### C MP, T4, TSH ####[facility] Kigmzjmjts7001 [place] [address]Dr. Villa Yanes ALP [Catalytic activity/Vol] 175 U/L Critically high 46-116 [facility] Comment on above: Performed By: #### C MP, T4, TSH ####[facility] Unaybrxzvn7082 [place] [address]Dr. Villa Yanes ALT [Catalytic activity/Vol] 12 U/L Critically low 16-63 [facility] Comment on above: Performed By: #### C MP, T4, TSH ####[facility] Luyopkorgh9483 [place] [address]Dr. Villa Yanes Anion gap [Moles/Vol] 11.1 mmol/L Normal [facility] Comment on above: Performed By: #### C MP, T4, TSH ####[facility] Cacxjdlbng6997 [place] [address]Dr. Villa Yanes AST [Catalytic activity/Vol] 12 U/L Critically low 15-37 [facility] Comment on above: Performed By: #### C MP, T4, TSH ####[facility] Caxtmbkglf5[address] [place], [place] [address]Dr. Villa Yanes Bilirubin [Mass/Vol] 0.5 mg/dL Normal 0.2-1.0 [facility] Comment on above: Performed By: #### C MP, T4, TSH ####[facility] Qdahvtxkkl96[address] [place], [place] [address]Dr. Villa Yanes Calcium [Mass/Vol] 9.0 mg/dL Normal 8.5-10.1 [facility] Comment on above: Performed By: #### C MP, T4, TSH ####[facility] Vcviimypvo[address] [place], [place] [address]Dr. Villa Yanes Chloride [Moles/Vol] 104 mmol/L Normal 98-107 [facility] Comment on above: Performed By: #### C MP, T4, TSH ####[facility] Ijtddqgpoq17[address] [place], [place] [address]Dr. Villa Yanes CO2 [Moles/Vol] 28.2 mmol/L Normal 21.0-32.0 [facility] Comment on above: Performed By: #### C MP, T4, TSH ####[facility] Zwlrzmtiwx87[address] [place], [place] [address]Dr. Villa Yanes Creatinine [Mass/Vol] 1.23 mg/dL Normal 0.70-1.30 [facility] Comment on above: Performed By: #### C MP, T4, TSH ####[facility] Vwdimijcok2921 [place] [address]Dr. Villa Yanes EGFR-AF PAKISTANI >60 Normal >=60 [facility] Comment on above: Performed By: #### C MP, T4, TSH ####[facility] Ugxgfrfwwh4361 [place] [address]Dr. Villa Yanes EGFR-NON AF PAKISTANI 57 mL/min/1.73m2 Critically low >=60 [facility] Comment on above: Performed By: #### C MP, T4, TSH ####[facility] Pzgpsqzdsl1235 [place] [address]Dr. Villa Yanes Globulin (S) [Mass/Vol] 3.3 g/dL Normal [facility] Comment on above: Performed By: #### C MP, T4, TSH ####[facility] Dtjvacpill1512 [place] [address]Dr. Villa Yanes Glucose [Mass/Vol] 122 mg/dL Critically high 74-106 [facility] Comment on above: Performed By: #### C MP, T4, TSH ####[facility] Xvknbibucr4163 [place] [address]Dr. Villa Yanes Potassium [Moles/Vol] 4.3 mmol/L Normal 3.5-5.1 [facility] Comment on above: Performed By: #### C MP, T4, TSH ####[facility] Gbzkjnczwt0328 [place] [address]Dr. Villa Yanes Protein [Mass/Vol] 6.3 g/dL Critically low 6.4-8.2 [facility] Comment on above: Performed By: #### C MP, T4, TSH ####[facility] Klrohksslu3950 [place] [address]Dr. Villa Yanes Sodium [Moles/Vol] 139 mmol/L Normal 136-145 [facility] Comment on above: Performed By: #### C MP, T4, TSH ####[facility] Kcqfecgmiq2443 [place] [address]Dr. Villa Yanes Urea nitrogen [Mass/Vol] 29.0 mg/dL Critically high 7.0-18.0 [facility] Comment on above: Performed By: #### C MP, T4, TSH ####[facility] Gkysxqmmhj8148 [place] [address]Dr. Villa Yanes Urea nitrogen/Creatinine [Mass ratio] 23.6 mg/mg Normal [facility] Comment on above: Performed By: #### C MP, T4, TSH ####[facility] Jqfbyteiqs2380 [place] [address]Dr. Villa Yanes T4on 06-26-2022 T4 [Mass/Vol] 5.80 ug/dL Normal 4.50-12.10 [facility] Comment on above: Performed By: #### C MP, T4, TSH ####[facility] Fuwvhsulqj2799 [place] [address]Dr. Villa Yanes TSHon 06-26-2022 TSH 0.281 uIU/mL Critically low 0.358-3.740 [facility] Comment on above: Performed By: #### C MP, T4, TSH ####[facility] Zkywxyqrgg0303 [place] [address]Dr. Villa Yanes UA RANDOM W/MICROSCOPICon BACTERIA TRACE Abnormal NONE SEEN [facility] Comment on above: Performed By: #### U AMIC ####[facility] Ehlyofztdq9727 [place] [address]Dr. Villa Yanes Bilirubin Ql (U) Negative Normal NEGATIVE [facility] Comment on above: Performed By: #### U AMIC ####[facility] Fxbcpijjfu4840 [place] [address]Dr. Villa Yanes CAST NONE SEEN Normal NONE SEEN [facility] Comment on above: Performed By: #### U AMIC ####[facility] Yravcqarqv2346 [place] [address]Dr. Villa Yanes Clarity (U) CLEAR Normal CLEAR [facility] Comment on above: Performed By: #### U AMIC ####[facility] Vvzvqxuxsl1431 [place] [id number]. Brooklynkaren Yanes Color (U) YELLOW Normal YELLOW [facility] Comment on above: Performed By: #### U AMIC ####[facility] Yknzjkhaok1587 [place] [id number]. Brooklynkaren Yanes Crystals LM Nom (Urine sed) NONE SEEN Normal NONE SEEN [facility] Comment on above: Performed By: #### U AMIC ####[facility] Fcgfqckhll[address] [place], [place] [address]Dr. Villa Joaquín Epithelial cells LM Ql (Urine sed) RARE Normal NONE SEEN /RARE [facility] Comment on above: Performed By: #### U AMIC ####[facility] Rcwcncotlf56[address] [place], [place] [address]Dr. Villa Yanes Glucose Ql (U) Negative Normal NEGATIVE [facility] Comment on above: Performed By: #### U AMIC ####[facility] Sihxtzaakn8513[address] [place], [place] [address]Dr. Villa Yanes Hemoglobin Ql (U) Negative Normal NEGATIVE [facility] Comment on above: Performed By: #### U AMIC ####[facility] Nyjqholwcw9[address] [place], [place] [address]Dr. Villa Ynaes Ketones Ql (U) Negative Normal NEGATIVE [facility] Comment on above: Performed By: #### U AMIC ####[facility] Osroncodzr[address] [place], [place] [address]Dr. Yilan Yanes LEUKOCYTES Negative Normal NEGATIVE [facility] Comment on above: Performed By: #### U AMIC ####[facility] Qxutuvcenz3255[address] [place], [place] [address]Dr. Yilan Yanes MUCOUS NONE SEEN Normal NONE SEEN [facility] Comment on above: Performed By: #### U AMIC ####[facility] Wlpevfdjmd35[address] [place], [place] [address]Dr. Yilan Yanes Nitrite Ql (U) Negative Normal NEGATIVE [facility] Comment on above: Performed By: #### U AMIC ####[facility] Ylpgwhkklr44[address] [place], [place] [address]Dr. Yilan Yanes pH (U) 5.5 [pH] Normal 5-9 [facility] Comment on above: Performed By: #### U AMIC ####[facility] Zlezwgefkw6537 [place] [address]Dr. Villa Yanes RBC 0-2 Normal 0-2 [facility] Comment on above: Performed By: #### U AMIC ####[facility] Zkorjdfmof3370 [place] [address]Dr. Villa Yanes SPEC GRAVITY 1.025 Normal 1.005-<=1.0 25 [facility] Comment on above: Performed By: #### U AMIC ####[facility] Sjpcpfckay[address] [place], [place] [address]Dr. Villa Yanes UA PROTEIN 100 mg/dl Abnormal NEGATIVE/ TRACE [facility] Comment on above: Performed By: #### U AMIC ####[facility] Unclhginer[address] [place], [place] [address]Dr. Villa Yanes Urobilinogen Qn (U) 0.2 {Mackenzie'U}/dL Normal 0.2 - 1. 0 [facility] Comment on above: Performed By: #### U AMIC ####[facility] Ocoydvbrkg[address] [place], [place] [address]Dr. Villa Yanes WBC NONE SEEN Normal NONE SEEN [facility] Comment on above: Performed By: #### U AMIC ####[facility] Fxosugttce34[address] [place], [place] [address]Dr. Villa Yanes MRI LSPINE WO CONon 06-10-19 MRI LSPINE WO CON Normal [facility] CBC AUTO DIFFon 06-06-2022 BASO # 0.0 103/ul Normal 0.0-0.1 [facility] Comment on above: Performed By: #### C BC ####[facility] Fjgjldyxji[address] [place], [place] [address]Dr. Brooklynkaren Yanes Basophils/100 WBC (Bld) 0.4 % Normal 0.2-2.0 [facility] Comment on above: Performed By: #### C BC ####[facility] Uwmjwnnvtw13[address] [place] [address]Dr. Villa Yanes EO # 0.1 103/ul Normal 0.0-0.7 [facility] Comment on above: Performed By: #### C BC ####[facility] Srlegxxjew8[address] [place], [place] [address]Dr. Villa Yanes Eosinophils/100 WBC (Bld) 0.6 % Critically low 0.9-7.0 [facility] Comment on above: Performed By: #### C BC ####[facility] Pqdxszdbeu22[address] [place], [place] [address]Dr. Villa Yanes Erythrocyte distribution width (RBC) [Ratio] 12.6 % Normal 11.0-15.0 [facility] Comment on above: Performed By: #### C BC ####[facility] Tudjeoekyu4[address] [place], [place] [address]Dr. Villa Yanes Hematocrit (Bld) [Volume fraction] 34.1 % Critically low 42.0-54.0 [facility] Comment on above: Performed By: #### C BC ####[facility] Ychdggpddo[address] [place], [place] [address]Dr. Villa Yanes Hemoglobin (Bld) [Mass/Vol] 11.3 g/dL Critically low 14.0-18.0 [facility] Comment on above: Performed By: #### C BC ####[facility] Cmcximdrag37[address] [place], [place] [address]Dr. Villa Yanes IG # 0.14 10e3/ul Critically high 0.00-0.03 [facility] Comment on above: Performed By: #### C BC ####[facility] Xfbyuetfzx[address] [place], [place] [address]Dr. Villa Yanes IG % 1.2 % Critically high 0.0-0.5 [facility] Comment on above: Performed By: #### C BC ####[facility] Vzakwrgcle14[address] [place], [place] [address]Dr. Brooklynkaren Yanes LYMPH # 1.1 103/ul Critically low 1.2-3.8 [facility] Comment on above: Performed By: #### C BC ####[facility] Miixwcqqfc6217 [place] [id number]. Villa Yanes Lymphocytes/100 WBC (Bld) 9.8 % Critically low 20.5-60.0 [facility] Comment on above: Performed By: #### C BC ####[facility] Sxthqtvwvx1809 [place] [id number]. Villa Joaquín MANUAL DIFF REQ NO Normal [facility] Comment on above: Performed By: #### C BC ####[facility] Ssmdlqkrkn0[address] [place] [address]Dr. Villa Joaquín MCH (RBC) [Entitic mass] 31.9 pg Normal 25.9-34.0 [facility] Comment on above: Performed By: #### C BC ####[facility] Pxrrsmcvei8555 [place] [address]Dr. Villa Joaquín MCHC (RBC) [Mass/Vol] 33.1 g/dL Normal 29.9-35.2 [facility] Comment on above: Performed By: #### C BC ####[facility] Vyvkvkhevw0684 [place] [address]Dr. Villa Joaquín MCV (RBC) [Entitic vol] 96.3 fL Critically high 80.0-94.0 [facility] Comment on above: Performed By: #### C BC ####[facility] Kcsjcvndnd4463 [place] [address]Dr. Brooklynkaren Joaquín MONO # 0.8 103/ul Normal 0.3-0.8 [facility] Comment on above: Performed By: #### C BC ####[facility] Hwujbmgcau3662 [place] [address]Dr. Brooklynkaren Yanes Monocytes/100 WBC (Bld) 6.7 % Normal 1.7-12.0 [facility] Comment on above: Performed By: #### C BC ####[facility] Bdgzsezjxl6777 [place] [address]Dr. Villa Yanes NEUT # 9.2 103/ul Critically high 1.4-6.5 [facility] Comment on above: Performed By: #### C BC ####[facility] Wecmnzjsol4778 [place] [phone]. Villa Yanes Neutrophils/100 WBC (Bld) 81.3 % Critically high 43.0-75.0 [facility] Comment on above: Performed By: #### C BC ####[facility] Lrgwsrjsoa2395 [place] [address]Dr. Villa Yanes Platelet mean volume (Bld) [Entitic vol] 9.2 fL Critically low 9.5-13.5 [facility] Comment on above: Performed By: #### C BC ####[facility] Xurtestioq5144 [place] [address]Dr. Villa Joaquín PLT 255 103/ul Normal 150-450 [facility] Comment on above: Performed By: #### C BC ####[facility] Gkszhgmipc2881 [place] [address]Dr. Villa Joaquín RBC 3.54 106/ul Critically low 4.70-6.10 [facility] Comment on above: Performed By: #### C BC ####[facility] Bxzkzihvvy8438 [place] [address]Dr. Villa Joaquín WBC 11.3 103/ul Critically high 4.0-11.0 [facility] Comment on above: Performed By: #### C BC ####[facility] Gfrgspaohq0607 [place] [phone]. Villa Yanes ER URINE PROFILEon 3 Bilirubin Ql (U) Negative Normal NEGATIVE [facility] Comment on above: Performed By: #### ANGELIA CAMARENARO ####[facility] Jgunbnuifh9567 [place] [phone]. Brooklynkaren Yanes Clarity (U) CLEAR Normal CLEAR [facility] Comment on above: Performed By: #### ANGELIA CAMARENARO ####[facility] Imjkermoyr7739 [place] [phone]. Villa Yanes Color (U) LT. YELLOW Normal YELLOW [facility] Comment on above: Performed By: #### ANGELIA CAMARENARO ####[facility] Cctubcnulv5085 [place] [phone]. Villa PENG A micrscopic examina tion will be performed if indicated. Normal [facility] Comment on above: Performed By: #### ROBERTO CARLOS CAMARENA ####[facility] Rnipnqimzu0692 [place] [address]Dr. Villa Yanes Glucose Ql (U) Negative Normal NEGATIVE [facility] Comment on above: Performed By: #### ANGELIA CAMARENARO ####[facility] Qdzpbnbacx0919 [place] [address]Dr. Villa Yanes Hemoglobin Ql (U) Negative Normal NEGATIVE [facility] Comment on above: Performed By: #### ANGELIA CAMARENARO ####[facility] Yaszlaxnuv40[address] [place], [place] [address]Dr. Villa Yanes Ketones Ql (U) Negative Normal NEGATIVE [facility] Comment on above: Performed By: #### ANGELIA CAMARENARO ####[facility] Xvxfrcrsfs3898[address] [place], [place] [address]Dr. Villa Yanes LEUKOCYTES Negative Normal NEGATIVE [facility] Comment on above: Performed By: #### ANGELIA CAMARENARO ####[facility] Sjyxilptkn18[address] [place], [place] [address]Dr. Villa Yanes Nitrite Ql (U) Negative Normal NEGATIVE [facility] Comment on above: Performed By: #### ANGELIA CAMARENARO ####[facility] Teljameoxw17[address] [place], [place] [address]Dr. Villa Yanes pH (U) 5.5 [pH] Normal 5-9 [facility] Comment on above: Performed By: #### ANGELIA CAMARENARO ####[facility] Irrmzeusdn0552 [place] [address]Dr. Villa Yanes Protein (U) [Mass/Vol] 300 mg/dL Abnormal NEGATIVE/ TRACE [facility] Comment on above: Performed By: #### ANGELIA CAMARENARO ####[facility] Vuziitwvdd4000 [place] [address]Dr. Villa Yanes SPEC GRAVITY 1.025 Normal 1.005-<=1.0 25 [facility] Comment on above: Performed By: #### ROBERTO CARLOS CAMARENA ####[facility] Gakxrmxkpg5701 [place] [address]Dr. Villa Yanes UR MICRO IND INDICATED Normal [facility] Comment on above: Performed By: #### ROBERTO CARLOS CAMARENA ####[facility] Mksdrkgwfq7814 [place] [address]Dr. Villa Yanes Urobilinogen Qn (U) 0.2 {Mackenzie'U}/dL Normal 0.2 - 1. 0 [facility] Comment on above: Performed By: #### ROBERTO CARLOS CAMARENA ####[facility] Iishjvmiyf6368 [place] [address]DrBrenden Yanes PROF 14(COMP METB)on 023 Albumin [Mass/Vol] 2.7 g/dL Critically low 3.4-5.0 [facility] Comment on above: Performed By: #### C MP ####[facility] Nmavfhodtk[address] [place], [place] [address]Dr. Villa Yanes Albumin/Globulin [Mass ratio] 0.8 {ratio} Normal [facility] Comment on above: Performed By: #### C MP ####[facility] Bjxxtnkxqt1398[address] [place], [place] [address]Dr. Villa Yanes ALP [Catalytic activity/Vol] 206 U/L Critically high 46-116 [facility] Comment on above: Performed By: #### C MP ####[facility] Rifcbawxic[address] [place], [place] [address]DrBrenden Yanes ALT [Catalytic activity/Vol] 8 U/L Critically low 16-63 [facility] Comment on above: Performed By: #### C MP ####[facility] Wgnvaerccx8188[address] [place], [place] [address]DrBrenden Yanes Anion gap [Moles/Vol] 12.4 mmol/L Normal [facility] Comment on above: Performed By: #### C MP ####[facility] Qoupdetvpk8284[address] [place], [place] [address]Dr. Villa Yanes AST [Catalytic activity/Vol] 9 U/L Critically low 15-37 [facility] Comment on above: Performed By: #### C MP ####[facility] Xcflgpgeia7383 [place] [address]Dr. Villa Yanes Bilirubin [Mass/Vol] 0.2 mg/dL Normal 0.2-1.0 [facility] Comment on above: Performed By: #### C MP ####[facility] Iwncosnyxo[address] [place], [place] [address]Dr. Villa Joaquín Calcium [Mass/Vol] 8.9 mg/dL Normal 8.5-10.1 [facility] Comment on above: Performed By: #### C MP ####[facility] Pbnxfukqid7287[address] [place], [place] [address]Dr. Brooklynkaren Joaquín Chloride [Moles/Vol] 106 mmol/L Normal 98-107 [facility] Comment on above: Performed By: #### C MP ####[facility] Sknsuwquur0224[address] [place], [place] [address]Dr. Villa Joaquín CO2 [Moles/Vol] 27.4 mmol/L Normal 21.0-32.0 [facility] Comment on above: Performed By: #### C MP ####[facility] Vjuyelwsin[address] [place], [place] [address]Dr. Villa Joaquín Creatinine [Mass/Vol] 1.26 mg/dL Normal 0.70-1.30 [facility] Comment on above: Performed By: #### C MP ####[facility] Eozcxnpxbm7[address] [place], [place] [address]Dr. Brooklynkaren Joaquín EGFR-AF PAKISTANI >60 Normal >=60 [facility] Comment on above: Performed By: #### C MP ####[facility] Jbygnipbzc27[address] [place], [place] [address]Dr. Villa Yanes EGFR-NON AF PAKISTANI 55 mL/min/1.73m2 Critically low >=60 [facility] Comment on above: Performed By: #### C MP ####[facility] Cigqijesrg9[address] [place], [place] [address]Dr. Villa Yanes Globulin (S) [Mass/Vol] 3.5 g/dL Normal [facility] Comment on above: Performed By: #### C MP ####[facility] Uoowjwqfpf3987 [place] [phone]. Villa Yanes Glucose [Mass/Vol] 125 mg/dL Critically high 74-106 [facility] Comment on above: Performed By: #### C MP ####[facility] Wzlbqlszbx0399 [place] [phone]. Villa Yanes Potassium [Moles/Vol] 3.8 mmol/L Normal 3.5-5.1 [facility] Comment on above: Performed By: #### C MP ####[facility] Edulpisrhf5323 [place] [address]Dr. Villa Yanes Protein [Mass/Vol] 6.2 g/dL Critically low 6.4-8.2 [facility] Comment on above: Performed By: #### C MP ####[facility] Xsysdjmwfx[address] [place], [place] [address]Dr. Villa Yanes Sodium [Moles/Vol] 142 mmol/L Normal 136-145 [facility] Comment on above: Performed By: #### C MP ####[facility] Eekjfeivxy2256[address] [place], [place] [address]Dr. Villa Yanes Urea nitrogen [Mass/Vol] 30.0 mg/dL Critically high 7.0-18.0 [facility] Comment on above: Performed By: #### C MP ####[facility] Cbdavfxwcq82[address] [place], [place] [address]Dr. Villa Yanes Urea nitrogen/Creatinine [Mass ratio] 23.8 mg/mg Normal [facility] Comment on above: Performed By: #### C MP ####[facility] Ntsoxkmyee9720 [place] [id number]. Villa Joaquín URINE MICROSCOPIC ONLYon BACTERIA NONE SEEN Normal NONE SEEN [facility] Comment on above: Performed By: #### E ROBERTO CARLOS DAWN ####[facility] Wvszvzbtwu6726 [place] [phone]. Villa Joaquín Bacteria identified Cx Nom (U) NOT INDICATED Normal [facility] Comment on above: Performed By: #### Riddhi DAWN UMICRO ####[facility] Kywuwmgqks1623 [place] [address]Dr. Villa Yanes CAST SEEN Abnormal NONE SEEN [facility] Comment on above: Performed By: #### Riddhi DAWN UMICRO ####[facility] Jpmjqiqgxm2254 [place] [address]Dr. Villa Yanes Crystals LM Nom (Urine sed) NONE SEEN Normal NONE SEEN [facility] Comment on above: Performed By: #### Riddhi DAWN UMICRO ####[facility] Wkfnqckrqw2086 [place] [address]Dr. Villa Yanes Epithelial cells LM Ql (Urine sed) NONE SEEN Normal NONE SEEN /RARE [facility] Comment on above: Performed By: #### Riddhi DAWN UMICRO ####[facility] Zunabqadea55[address] [place], [place] [address]Dr. Villa Yanes MUCOUS NONE SEEN Normal NONE SEEN [facility] Comment on above: Performed By: #### Riddhi DAWN UMICRO ####[facility] Siynofwpik[address] [place], [place] [address]Dr. Villa Yanes RBC NONE SEEN Abnormal 0-2 [facility] Comment on above: Performed By: #### Riddhi DAWN UMICRO ####[facility] Tlzoeghpra4174 [place] [address]Dr. Villa Yanes WBC 0-2 Abnormal NONE SEEN [facility] Comment on above: Performed By: #### Riddhi DAWN UMICRO ####[facility] Mtefqmpvsl89[address] [place], [place] [address]Dr. Villa Yanes WBC CELLULAR CAST RARE Normal [facility] Comment on above: Performed By: #### Riddhi DAWN UMICRO ####[facility] Hyuqcsbpky8[address] [place], [place] [address]Dr. Villa Yanes XR SACRUM_COCCYXon XR SACRUM_COCCYX Normal [facility] BNPon 05-08-2022 Natriuretic peptide B (Bld) [Mass/Vol] 2957.0 pg/mL Critically high <=1,800.0 [facility] Comment on above: Performed By: #### T SH, BNP, CMADM, CMP, T7 ####[facility] Siyvylzozd7734 [place] [address]Dr. Villa Yanes CARDIAC ANAMARIA ADMITon 022 CK [Catalytic activity/Vol] 88 U/L Normal 39-308 [facility] Comment on above: Performed By: #### T SH, BNP, CMADM, CMP, T7 ####[facility] Qwwswrvaqm1748 [place] [address]Dr. Villa Yanes CK.MB [Mass/Vol] 2.75 ng/mL Normal <=3.60 [facility] Comment on above: Performed By: #### T SH, BNP, CMADM, CMP, T7 ####[facility] Qdfrhwouvv[address] [place], [place] [address]Dr. Villa Yanes HSTROP 10.4 pg/mL Normal 4.0-76.1 [facility] Comment on above: Result Comment: CUT- OFF POINTS HAVE BEEN ESTABLISHED BASED ON THE FOURTH UNIVERSAL DEFINITIONS OF MYOCARDIALINFARCTION. THE UPPER REFERENCE LIMIT (URL) OF TROPONIN, DEFINED THE 99TH PERCENTILE OFcTnI DISTRIBUTION IN A REFERENCE POPULATION, HAS BEEN CONFIRMED THE DECISION THRESHOLDFOR GA DIAGNOSIS. Performed By: #### T SH, BNP, CMADM, CMP, T7 ####[facility] Qqytgpvkdn3047 [place] [address]Dr. Villa Yanes JULIA 109 ng/mL Critically high 16- [facility] Comment on above: Performed By: #### T SH, BNP, CMADM, CMP, T7 ####[facility] Ljicqxtgnr5961 [place] [address]Dr. Villa Yanes CBC AUTO DIFFon 05-08-2022 BASO # 0.0 103/ul Normal 0.0-0.1 [facility] Comment on above: Performed By: #### C BC ####[facility] Sdjywmoxrk[address] [place], [place] [address]Dr. Villa Yanes Basophils/100 WBC (Bld) 0.2 % Normal 0.2-2.0 [facility] Comment on above: Performed By: #### C BC ####[facility] Jgkzdettzq6812 [place] [id number] Villa Yanes EO # 0.0 103/ul Normal 0.0-0.7 [facility] Comment on above: Performed By: #### C BC ####[facility] Qfzupqbyfj09[address] [place], [place] [address]DrBrenden Brooklynkaren Yanes Eosinophils/100 WBC (Bld) 0.0 % Critically low 0.9-7.0 [facility] Comment on above: Performed By: #### C BC ####[facility] Eilmivuvrj26[address] [place], [place] [address]Dr. Brooklynkaren Yanes Erythrocyte distribution width (RBC) [Ratio] 12.5 % Normal 11.0-15.0 [facility] Comment on above: Performed By: #### C BC ####[facility] Lwoehjmjbi7[address] [place], [place] [address]Dr. Villa Yanes Hematocrit (Bld) [Volume fraction] 30.0 % Critically low 42.0-54.0 [facility] Comment on above: Performed By: #### C BC ####[facility] Cfbnstrvpl7169[address] [place], [place] [address]Dr. Villa Joaquín Hemoglobin (Bld) [Mass/Vol] 9.9 g/dL Critically low 14.0-18.0 [facility] Comment on above: Performed By: #### C BC ####[facility] Vtqhnonjrk[address] [place], [place] [address]Dr. Brooklynkaren Yanes IG # 0.13 10e3/ul Critically high 0.00-0.03 [facility] Comment on above: Performed By: #### C BC ####[facility] Bxyjacaait6731[address] [place], [place] [address]DrBrenden Yanes IG % 0.9 % Critically high 0.0-0.5 [facility] Comment on above: Performed By: #### C BC ####[facility] Hqmqpvjaxt8[address] [place], [place] [address]DrBrenden Yanes LYMPH # 0.8 103/ul Critically low 1.2-3.8 [facility] Comment on above: Performed By: #### C BC ####[facility] Xichldvxdn7967 [place] [address]DrBrenden Yanes Lymphocytes/100 WBC (Bld) 5.7 % Critically low 20.5-60.0 [facility] Comment on above: Performed By: #### C BC ####[facility] Vmbneblwty7981 [place] [address]DrBrenden Yanes MANUAL DIFF REQ NO Normal [facility] Comment on above: Performed By: #### C BC ####[facility] Bofsiuwrvc5459 [place] [id number] Yanes MCH (RBC) [Entitic mass] 32.1 pg Normal 25.9-34.0 [facility] Comment on above: Performed By: #### C BC ####[facility] Viukyuwimz55[address] [place], [place] [address]DrBrenden Yanes MCHC (RBC) [Mass/Vol] 33.0 g/dL Normal 29.9-35.2 [facility] Comment on above: Performed By: #### C BC ####[facility] Uunxirwcck75[address] [place], [place] [address]DrBrenden Yanes MCV (RBC) [Entitic vol] 97.4 fL Critically high 80.0-94.0 [facility] Comment on above: Performed By: #### C BC ####[facility] Lvkfpzcxbc5[address] [place], [place] [address]DrBrenden Yanes MONO # 0.5 103/ul Normal 0.3-0.8 [facility] Comment on above: Performed By: #### C BC ####[facility] Orwzzhwkap029[address] [place], [place] [address]DrBrenden Yanes Monocytes/100 WBC (Bld) 3.4 % Normal 1.7-12.0 [facility] Comment on above: Performed By: #### C BC ####[facility] Ngsqviizbz7376[address] [place], [place] [address]DrBrenden Yanes NEUT # 13.1 103/ul Critically high 1.4-6.5 [facility] Comment on above: Performed By: #### C BC ####[facility] Fuxpnectux6181 [place] [address]Dr. Villa Yanes Neutrophils/100 WBC (Bld) 89.8 % Critically high 43.0-75.0 [facility] Comment on above: Performed By: #### C BC ####[facility] Fecrzntbik2433 [place] [address]Dr. Villa Yanes Platelet mean volume (Bld) [Entitic vol] 9.9 fL Normal 9.5-13.5 [facility] Comment on above: Performed By: #### C BC ####[facility] Wfjbgqmljq3051 [place] [address]Dr. Villa Joaquín PLT 281 103/ul Normal 150-450 [facility] Comment on above: Performed By: #### C BC ####[facility] Ipiokmqmej6763 [place] [address]Dr. Villa Joaquín RBC 3.08 106/ul Critically low 4.70-6.10 [facility] Comment on above: Performed By: #### C BC ####[facility] Xqtjevhbch15[address] [place], [place] [address]Dr. Villa Joaquín WBC 14.6 103/ul Critically high 4.0-11.0 [facility] Comment on above: Performed By: #### C BC ####[facility] Sktdrsyygy5289 [place] [id number]. Villa Joaquín FREE THYROXINE INDEX T7on FTI 1.87 Normal 1.30-4.50 [facility] Comment on above: Performed By: #### T SH, BNP, CMADM, CMP, T7 ####[facility] Fbiipqgffr3605 [place] [phone]. Villa Yanes T3U 39.0 % Normal 33.0-40.0 [facility] Comment on above: Performed By: #### T SH, BNP, CMADM, CMP, T7 ####[facility] Srsflvoflz6811 [place] [phone]. Villa Yanes T4 [Mass/Vol] 4.80 ug/dL Normal 4.50-12.10 [facility] Comment on above: Performed By: #### T SH, BNP, CMADM, CMP, T7 ####[facility] [address]qda[address]fs[address] [place] [address]Dr. Villa Yanes IRONon 05-08-2022 Iron [Mass/Vol] 96.0 ug/dL Normal 65.0-175.0 [facility] Comment on above: Performed By: #### I JOSE ####[facility] Ytx[address]qlywh[address] [place] [address]Dr. Villa Yanes PROF 14(COMP METB)on 022 Albumin [Mass/Vol] 2.8 g/dL Critically low 3.4-5.0 [facility] Comment on above: Performed By: #### T SH, BNP, CMADM, CMP, T7 ####[facility] Nyogvrbcbq[address] [place] [address]Dr. Villa Yanes Albumin/Globulin [Mass ratio] 0.7 {ratio} Normal [facility] Comment on above: Performed By: #### T SH, BNP, CMADM, CMP, T7 ####[facility] Zyj[address] [place] [address]Dr. Villa Yanes ALP [Catalytic activity/Vol] 231 U/L Critically high 46-116 [facility] Comment on above: Performed By: #### T SH, BNP, CMADM, CMP, T7 ####[facility] Vurd[address]hhhle[address] [place] [address]Dr. Villa Yanes ALT [Catalytic activity/Vol] 13 U/L Critically low 16-63 [facility] Comment on above: Performed By: #### T SH, BNP, CMADM, CMP, T7 ####[facility] Mfsxwpxczr[address] [place] [address]Dr. Villa Yanes Anion gap [Moles/Vol] 13.1 mmol/L Normal [facility] Comment on above: Performed By: #### T SH, BNP, CMADM, CMP, T7 ####[facility] Qfswdrlenr[address] [place] [address]Dr. Villa Yanes AST [Catalytic activity/Vol] 14 U/L Critically low 15-37 [facility] Comment on above: Performed By: #### T SH, BNP, CMADM, CMP, T7 ####[facility] Ltfgnwhngx[address] [place] [address]Dr. Villa Yanes Bilirubin [Mass/Vol] 0.2 mg/dL Normal 0.2-1.0 [facility] Comment on above: Performed By: #### T SH, BNP, CMADM, CMP, T7 ####[facility] Glgeuzdeyb[address] [place] [address]Dr. Villa Yanes Calcium [Mass/Vol] 8.7 mg/dL Normal 8.5-10.1 [facility] Comment on above: Performed By: #### T SH, BNP, CMADM, CMP, T7 ####[facility] Dpcwbfmdtd[address] [place] [address]Dr. Villa Yanes Chloride [Moles/Vol] 107 mmol/L Normal 98-107 [facility] Comment on above: Performed By: #### T SH, BNP, CMADM, CMP, T7 ####[facility] Bhryiqsqcs[address] [place] [address]Dr. Villa Yanes CO2 [Moles/Vol] 26.3 mmol/L Normal 21.0-32.0 [facility] Comment on above: Performed By: #### T SH, BNP, CMADM, CMP, T7 ####[facility] Quzlvrqzzc[address] [place] [address]Dr. Villa Yanes Creatinine [Mass/Vol] 1.42 mg/dL Critically high 0.70-1.30 [facility] Comment on above: Performed By: #### T SH, BNP, CMADM, CMP, T7 ####[facility] Fruppnived[address] [place] [address]Dr. Villa Yanes EGFR-AF PAKISTANI 58 mL/min/1.73m2 Critically low >=60 [facility] Comment on above: Performed By: #### T SH, BNP, CMADM, CMP, T7 ####[facility] Afdfgqfaqr[address] [place] [address]Dr. Villa Yanes EGFR-NON AF PAK[place]ANI 48 mL/min/1.73m2 Critically low >=60 [facility] Comment on above: Performed By: #### T SH, BNP, CMADM, CMP, T7 ####[facility] Nkaoirlcqo[address] [place] [address]Dr. Villa Yanes Globulin (S) [Mass/Vol] 3.8 g/dL Normal [facility] Comment on above: Performed By: #### T SH, BNP, CMADM, CMP, T7 ####[facility] Ondoceurwf[address] [place] [address]Dr. Villa Yanes Glucose [Mass/Vol] 144 mg/dL Critically high 74-106 [facility] Comment on above: Performed By: #### T SH, BNP, CMADM, CMP, T7 ####[facility] Liafxotean46[address] [place] [address]Dr. Villa Yanes Potassium [Moles/Vol] 4.4 mmol/L Normal 3.5-5.1 [facility] Comment on above: Performed By: #### T SH, BNP, CMADM, CMP, T7 ####[facility] Omdnsdjrax1837 [place] [address]Dr. Villa Yanes Protein [Mass/Vol] 6.6 g/dL Normal 6.4-8.2 [facility] Comment on above: Performed By: #### T SH, BNP, CMADM, CMP, T7 ####[facility] Gtbkvvamsa69[address] [place] [address]Dr. Villa Yanes Sodium [Moles/Vol] 142 mmol/L Normal 136-145 [facility] Comment on above: Performed By: #### T SH, BNP, CMADM, CMP, T7 ####[facility] Feprctwwxb[address] [place] [address]Dr. Villa Yanes Urea nitrogen [Mass/Vol] 49.0 mg/dL Critically high 7.0-18.0 [facility] Comment on above: Performed By: #### T SH, BNP, CMADM, CMP, T7 ####[facility] Sjsdluvjbr57[address] [place] [address]Dr. Villa Yanes Urea nitrogen/Creatinine [Mass ratio] 34.5 mg/mg Normal [facility] Comment on above: Performed By: #### T SH, BNP, CMADM, CMP, T7 ####[facility] Qtzkubbxri[address] [place] [address]Dr. Villa Yanes TSHon 05-08-2022 TSH 0.099 uIU/mL Critically low 0.358-3.740 [facility] Comment on above: Performed By: #### T SH, BNP, CMADM, CMP, T7 ####[facility] Eijuymhvra[address] [place] [address]Dr. [place]karen Yanes XR SACRUM_COCCYXon 2 XR SACRUM_COCCYX Normal [facility] GLYCOHEMOGLOBIN A1Con 2021 ADA RECOMMENDATION SEE BELOW Normal [facility] Comment on above: Result Comment: ADA RECOMMENDED LIMIT 4.0 - 6.0 ADA THERAPEUTIC TARGET < 7.0 ACTION SUGGESTED > 7.0 Performed By: #### A 1C ####[facility] [address]owfh[address]va[address] [place], [place] [address]Dr. Villa Joaquín Glucose [Mass/Vol] 140 mg/dL Normal [facility] Comment on above: Performed By: #### A 1C ####[facility] Crtxlxrjbs22[address] [place] [address]Dr. Villa Joaquín HbA1c (Bld) [Mass fraction] 6.5 % Critically high 4.5-6.2 [facility] Comment on above: Performed By: #### A 1C ####[facility] Khemoxblzi[address] [place] [address]Dr. Villa Joaquín CBC AUTO DIFFon 04-03-2022 BASO # 0.1 103/ul Normal 0.0-0.1 [facility] Comment on above: Performed By: #### C BC ####[facility] Jribsqycbt6043 [place] [address]Dr. Villa Joaquín Basophils/100 WBC (Bld) 0.4 % Normal 0.2-2.0 [facility] Comment on above: Performed By: #### C BC ####[facility] Fingxhucfm[address] [place] [id number]. Villa Yanes EO # 0.3 103/ul Normal 0.0-0.7 [facility] Comment on above: Performed By: #### C BC ####[facility] Xhjnausnjo0097 [place] [address]Dr. Villa Yanes Eosinophils/100 WBC (Bld) 2.4 % Normal 0.9-7.0 [facility] Comment on above: Performed By: #### C BC ####[facility] Cslbfzecco[address] [place], [place] [address]Dr. Villa Yanes Erythrocyte distribution width (RBC) [Ratio] 12.3 % Normal 11.0-15.0 [facility] Comment on above: Performed By: #### C BC ####[facility] Zwgzkh[address]xiw[address] [place], [place] [address]Dr. Villa Yanes Hematocrit (Bld) [Volume fraction] 34.6 % Critically low 42.0-54.0 [facility] Comment on above: Performed By: #### C BC ####[facility] Umuwmxjotc[address] [place], [place] [address]Dr. Villa Yanes Hemoglobin (Bld) [Mass/Vol] 11.4 g/dL Critically low 14.0-18.0 [facility] Comment on above: Performed By: #### C BC ####[facility] Efsqdpaykr[address] [place], [place] [address]Dr. Villa Yanes IG # 0.07 10e3/ul Critically high 0.00-0.03 [facility] Comment on above: Performed By: #### C BC ####[facility] Lnbdxnluua23[address] [place] [address]Dr. Villa Yanes IG % 0.5 % Normal 0.0-0.5 [facility] Comment on above: Performed By: #### C BC ####[facility] Vznrdgalmo[address] [place], [place] [address]Dr. Villa Yanes LYMPH # 1.9 103/ul Normal 1.2-3.8 [facility] Comment on above: Performed By: #### C BC ####[facility] Ztgqrlboeb6683 [place] [id number]. Villa Yanes Lymphocytes/100 WBC (Bld) 14.4 % Critically low 20.5-60.0 [facility] Comment on above: Performed By: #### C BC ####[facility] Oxjbneetrq[address] [place] [address]Dr. Villa Yanes MANUAL DIFF REQ NO Normal [facility] Comment on above: Performed By: #### C BC ####[facility] Phgvtipgyy6875 [place] [address]Dr. Villa Yanes MCH (RBC) [Entitic mass] 31.4 pg Normal 25.9-34.0 [facility] Comment on above: Performed By: #### C BC ####[facility] Lgbidtpcrr0253 [place] [address]Dr. Villa Yanes MCHC (RBC) [Mass/Vol] 32.9 g/dL Normal 29.9-35.2 [facility] Comment on above: Performed By: #### C BC ####[facility] Wglksfwjoe5597 [place] [address]Dr. Villa Yanes MCV (RBC) [Entitic vol] 95.3 fL Critically high 80.0-94.0 [facility] Comment on above: Performed By: #### C BC ####[facility] Qhppijjhjd5890 [place] [address]Dr. Villa Joaquín MONO # 0.8 103/ul Normal 0.3-0.8 [facility] Comment on above: Performed By: #### C BC ####[facility] Krcihaurxg7376 [place] [address]Dr. Villa Joaquín Monocytes/100 WBC (Bld) 5.8 % Normal 1.7-12.0 [facility] Comment on above: Performed By: #### C BC ####[facility] Kfwggorvde[address] [place], [place] [address]Dr. Villa Yanes NEUT # 10.3 103/ul Critically high 1.4-6.5 [facility] Comment on above: Performed By: #### C BC ####[facility] Hxgxykmjcb5699 [place] [id number]. Villa Yanes Neutrophils/100 WBC (Bld) 76.5 % Critically high 43.0-75.0 [facility] Comment on above: Performed By: #### C BC ####[facility] Njrtpnkstu1067 [place] [address]Dr. Villa Yanes Platelet mean volume (Bld) [Entitic vol] 9.6 fL Normal 9.5-13.5 [facility] Comment on above: Performed By: #### C BC ####[facility] Hztfkuztbj6680 [place] [address]Dr. Villa Yanes PLT 283 103/ul Normal 150-450 [facility] Comment on above: Performed By: #### C BC ####[facility] Ncptyjfdop2582 [place] [address]Dr. Villa Yanes RBC 3.63 106/ul Critically low 4.70-6.10 [facility] Comment on above: Performed By: #### C BC ####[facility] Titpgxdayl6956 [place] [address]Dr. Villa Yanes WBC 13.4 103/ul Critically high 4.0-11.0 [facility] Comment on above: Performed By: #### C BC ####[facility] Rfolpuxvmv7074 [place] [address]Dr. Villa Yanes CT ABD/PELV W CONon 04-03-[address] ABD/PELV W CON Normal [facility] ER URINE PROFILEon 2 Bilirubin Ql (U) Negative Normal NEGATIVE [facility] Comment on above: Performed By: #### U MICRO, ERUR ####[facility] [address]qzvrciz[address] [place], [place] [address]Dr. Villa Yanes Clarity (U) CLEAR Normal CLEAR [facility] Comment on above: Performed By: #### U MICRO, ERUR ####[facility] Kbkzucryxu7260 [place] [id number]. Villa Yanes Color (U) YELLOW Normal YELLOW [facility] Comment on above: Performed By: #### U MICRO, ERUR ####[facility] Xfpendzidq3662 [place] [address]Dr. Villa DILLARDD A micrscopic examina tion will be performed if indicated. Normal [facility] Comment on above: Performed By: #### U MICRO, ERUR ####[facility] Nsmvleyoqk2481 [place] [address]Dr. Villa Yanes Glucose Ql (U) Negative Normal NEGATIVE [facility] Comment on above: Performed By: #### U MICRO, ERUR ####[facility] Owrlmizpro[address] [place], [place] [address]Dr. Villa Yanes Hemoglobin Ql (U) Negative Normal NEGATIVE [facility] Comment on above: Performed By: #### U MICRO, ERUR ####[facility] Dogvotvnis[address] [place], [place] [address]Dr. Villa Yanes Ketones Ql (U) Negative Normal NEGATIVE [facility] Comment on above: Performed By: #### U MICRO, ERUR ####[facility] Gljwnqtnlp[address] [place], [place] [address]Dr. Villa Yanes LEUKOCYTES TRACE Abnormal NEGATIVE [facility] Comment on above: Performed By: #### U MICRO, ERUR ####[facility] Nhbuyfcjuu[address] [place], [place] [address]Dr. Villa Yanes Nitrite Ql (U) Negative Normal NEGATIVE [facility] Comment on above: Performed By: #### U MICRO, ERUR ####[facility] Uenfjtrean[address] [place], [place] [address]Dr. Villa Yanes pH (U) 6.0 [pH] Normal 5-9 [facility] Comment on above: Performed By: #### U MICRO, ERUR ####[facility] Wgkbuqugqb[address] [place], [place] [address]Dr. Villa Yanes Protein (U) [Mass/Vol] 100 mg/dL Abnormal NEGATIVE/ TRACE [facility] Comment on above: Performed By: #### U MICRO, ERUR ####[facility] Ajkqvbuoqq[address] [place], [place] [address]Dr. Villa Yanes SPEC GRAVITY 1.020 Normal 1.005-<=1.0 25 [facility] Comment on above: Performed By: #### U MICRO, ERUR ####[facility] Efzcrztxwn5955 [place] [address]Dr. Villa Yanes UR MICRO IND INDICATED Normal [facility] Comment on above: Performed By: #### U MICRO, ERUR ####[facility] Ozirghirtb0665 [place] [address]Dr. Villa Yanes Urobilinogen Qn (U) 0.2 {Mackenzie'U}/dL Normal 0.2 - 1. 0 [facility] Comment on above: Performed By: #### U MICRO, ERUR ####[facility] Jlcqstssrz[address] [place], [place] [address]Dr. Villa Yanes LIPASEon 04-03-2022 Lipase [Catalytic activity/Vol] 35.0 U/L Critically low 73.0-393.0 [facility] Comment on above: Performed By: #### L IPA, HSTROPN, CMP ####[facility] Cpvbsepeua[address] [place], [place] [address]Dr. Villa Yanes PROF 14(COMP METB)on 022 Albumin [Mass/Vol] 3.2 g/dL Critically low 3.4-5.0 [facility] Comment on above: Performed By: #### L IPA, HSTROPN, CMP ####[facility] Avenwsplqb9509 [place] [address]Dr. Villa Yanes Albumin/Globulin [Mass ratio] 0.8 {ratio} Normal [facility] Comment on above: Performed By: #### L IPA, HSTROPN, CMP ####[facility] Ktelsjdlpk9579 [place] [address]Dr. Villa Yanes ALP [Catalytic activity/Vol] 131 U/L Critically high 46-116 [facility] Comment on above: Performed By: #### L IPA, HSTROPN, CMP ####[facility] Uztvviupqt3442 [place] [address]Dr. Villa Yanes ALT [Catalytic activity/Vol] U/L Critically low 16-63 [facility] Comment on above: Performed By: #### L IPA, HSTROPN, CMP ####[facility] Lekbscaxmj4114 [place] [address]Dr. Villa Yanes Anion gap [Moles/Vol] 7.7 mmol/L Normal [facility] Comment on above: Performed By: #### L IPA, HSTROPN, CMP ####[facility] Tvtoleyhnv4138 [place] [address]Dr. Villa Yanes AST [Catalytic activity/Vol] 6 U/L Critically low 15-37 [facility] Comment on above: Performed By: #### L IPA HSTROPN, CMP ####[facility] Rpslorrigi[address] [place], [place] [address]Dr. Villa Yanes Bilirubin [Mass/Vol] 0.2 mg/dL Normal 0.2-1.0 [facility] Comment on above: Performed By: #### L IPA HSTROPN, CMP ####[facility] Qbuwpnrxyi[address] [place], [place] [address]Dr. Villa Yanes Calcium [Mass/Vol] 9.1 mg/dL Normal 8.5-10.1 [facility] Comment on above: Performed By: #### L IPA HSTROPN, CMP ####[facility] Zmpwefqnet[address] [place], [place] [address]Dr. Villa Yanes Chloride [Moles/Vol] 104 mmol/L Normal 98-107 [facility] Comment on above: Performed By: #### L IPA HSTROPN, CMP ####[facility] Degeasanhm[address] [place], [place] [address]Dr. Villa Yanes CO2 [Moles/Vol] 29.7 mmol/L Normal 21.0-32.0 [facility] Comment on above: Performed By: #### L IPA, HSTROPN, CMP ####[facility] Ivbhucqjtr[address] [place], [place] [address]Dr. Villa Yanes Creatinine [Mass/Vol] 1.35 mg/dL Critically high 0.70-1.30 [facility] Comment on above: Performed By: #### L IPA, HSTROPN, CMP ####[facility] Duxqvrlzrf8754 [place] [address]Dr. Villa Yanes EGFR-AF PAKISTANI >60 Normal >=60 [facility] Comment on above: Performed By: #### L IPA, HSTROPN, CMP ####[facility] Cjylrbzltb3975 [place] [address]Dr. Villa Yanes EGFR-NON AF PAK[place]ANI 51 mL/min/1.73m2 Critically low >=60 [facility] Comment on above: Performed By: #### L IPA, HSTROPN, CMP ####[facility] Erkzilxeta8214 [place] [address]Dr. Villa Yanes Globulin (S) [Mass/Vol] 4.2 g/dL Normal [facility] Comment on above: Performed By: #### L IPA, HSTROPN, CMP ####[facility] Tuxrxubycz[address] [place], [place] [address]Dr. Villa Yanes Glucose [Mass/Vol] 116 mg/dL Critically high 74-106 [facility] Comment on above: Performed By: #### L IPA, HSTROPN, CMP ####[facility] Ysqmdhcetf[address] [place], [place] [address]Dr. Villa Yanes Potassium [Moles/Vol] 3.4 mmol/L Critically low 3.5-5.1 [facility] Comment on above: Performed By: #### L IPA, HSTROPN, CMP ####[facility] [address]lmsbbvriy[address] [place], [place] [address]Dr. Villa Yanes Protein [Mass/Vol] 7.4 g/dL Normal 6.4-8.2 [facility] Comment on above: Performed By: #### L IPA, HSTROPN, CMP ####[facility] Qvytfyusyi[address] [place], [place] [address]Dr. Villa Yanes Sodium [Moles/Vol] 138 mmol/L Normal 136-145 [facility] Comment on above: Performed By: #### L IPA, HSTROPN, CMP ####[facility] [address] [place], [place] [address]Dr. Villa Yanes Urea nitrogen [Mass/Vol] 35.0 mg/dL Critically high 7.0-18.0 [facility] Comment on above: Performed By: #### L IPA, HSTROPN, CMP ####[facility] Dpbgyksyqt4875 [place] [address]Dr. Villa Yanes Urea nitrogen/Creatinine [Mass ratio] 25.9 mg/mg Normal [facility] Comment on above: Performed By: #### L IPA, HSTROPN, CMP ####[facility] Xnwrddpdah9[address] [place] [address]Dr. Villa Yanes TROPONIN, HIGH SENSITIVITYon 04-03-2022 HSTROP 10.3 pg/mL Normal 4.0-76.1 [facility] Comment on above: Result Comment: CUT- OFF POINTS HAVE BEEN ESTABLISHED BASED ON THE FOURTH UNIVERSAL DEFINITIONS OF MYOCARDIALINFARCTION. THE UPPER REFERENCE LIMIT (URL) OF TROPONIN, DEFINED THE 99TH PERCENTILE OFcTnI DISTRIBUTION IN A REFERENCE POPULATION, HAS BEEN CONFIRMED THE DECISION THRESHOLDFOR GA DIAGNOSIS. Performed By: #### L IPA, HSTROPN, CMP ####[facility] Ynvxfxohzp7557 [place] [address]Dr. Villa Yanes URINE MICROSCOPIC ONLYon BACTERIA NONE SEEN Normal NONE SEEN [facility] Comment on above: Performed By: #### U MICRO, ERUR ####[facility] Psrpyonell[address] [place], [place] [address]Dr. [place]karen Yanes Bacteria identified Cx Nom (U) NOT INDICATED Normal [facility] Comment on above: Performed By: #### U MICRO, ERUR ####[facility] Loluixosrz28[address] [place] [address]Dr. Villa Yanes CAST SEEN Abnormal NONE SEEN [facility] Comment on above: Performed By: #### U MICRO, ERUR ####[facility] Qyxnaqepgq27[address] [place] [address]Dr. Villa Yanes Crystals LM Nom (Urine sed) NONE SEEN Normal NONE SEEN [facility] Comment on above: Performed By: #### U MICRO, ERUR ####[facility] [address]sl[address] [place], [place] [address]Lu. Villa Yanes Epithelial cells LM Ql (Urine sed) NONE SEEN Normal NONE SEEN /RARE [facility] Comment on above: Performed By: #### U MICRO, ERUR ####[facility] Evafpbgqmg8323 [place], [place] [address]Ms. Villa Yanes MUCOUS NONE SEEN Normal NONE SEEN [facility] Comment on above: Performed By: #### U MICRO, ERUR ####[facility] Gttiachosq0925 [place], [place] [address]Vk. Villa Yanes RBC NONE SEEN Abnormal 0-2 [facility] Comment on above: Performed By: #### U MICRO, ERUR ####[facility] Lesdhwsvvq3361 [place], [place] [address]Az. Villa Yanes WBC 0-2 Abnormal NONE SEEN [facility] Comment on above: Performed By: #### U MICRO, ERUR ####[facility] [address]ntzrujbfb[address] [place] [id number]. Villa Yanes US SINGLE QUAD RT UPPERon US SINGLE QUAD RT UPPER Normal [facility] XR CHEST 1 Von 04-03-2022 XR CHEST 1 V Normal [facility] Office Visit (Cardiology)on 03-12-2022 Follow-up visit Diagnoses/Problems Assessed Coronary artery disease involving [place] coronary artery of [place] heart without angina pectoris (414.01) (I25.10) Ischemic cardiomyopathy (414.8) (I25.5) Paroxysmal atrial fibrillation (427.31) (I48.0) Body mass index (BMI) of 19.9 or less in adult (Z68.1) Cardiac arrest (427.5) (I46.9) PVD (peripheral vascular disease) (443.9) (I73.9) CHF (NYHA class II, ACC/AHA stage C) (428.0) (I50.9) Current smoker (305.1) (F17.200) 1 ppd Orders Coronary artery disease involving [place] coronary artery of [place] heart without angina pectoris Renew: Clopidogrel Bisulfate 75 MG Oral Tablet (Plavix); TAKE 1 TABLET DAILY Coronary artery disease involving [place] coronary artery of [place] heart without angina pectoris, Hyperlipidemia Start: Atorvastatin [...] we can help. You may also call [phone]; Status:Complete - Retrospective Authorization; Done: 12Mar2022 Tobacco [...] has had previous high risk non-ST elevation GA earlier this year July 2021, with subsequent revascularization of the RCA with drug-eluting stent and normalization of his LV function originally from 30 now up to 60% as measured by echo at [facility]. He has underlying peripheral vascular disease, ongoing tobacco use, COPD, history of throat cancer with PEG tube. He underwent recent hospitalization at [facility] with significant weight loss and debility and revision of his PEG tube and now clinically improved putting and weight back on. He was diagnosed with paroxysmal atrial fibrillation at the clinic and therefore initiated on Eliquis therapy. [facility] records are reviewed in their entirety that [...] Percutaneous endoscopic gastrostomy tube insertion History of [employer] femoral-popliteal History of Urinary catheter placement Current [...] change i (more content not included)... Normal [facility] Tobacco Screening.on 022 Fall risk assessment a) No falls within the last year [facility] Jounce DO Work Phone: Tobacco use status CP a) Yes [facility] Jounce DO Work Phone: Tobacco Screening. 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 You may also call [phone] for free resources and assistance.; Status:Complete; Done: [id number] Tobacco Use Screening; Status:Complete; Done: [id number] Patient Instructions Please bring all medicines, vitamins, [...] History of Lower back surgery History of [employer] femoral-popliteal History of Urinary catheter placement Current [...] Screening.on 022 Adult depression screening assessment No -[facility]-Thumb Readingu marika 250 DO Work Phone: Fall risk assessment a) No falls within the last year [facility] [employer]y 250 DO Work Phone: Tobacco use status CPHS a) Yes [facility]umb [employer] marika 250 DO Work Phone: Tobacco Screening. Yes [facility] Heart-Sandu marika 250 DO Work Phone: Basic metabolic 2000 panelon 02-03-2022 Anion gap [Moles/Vol] 12 mmol/L Normal 9-18 [facility] Comment on above: Order Comment: Speci men Type: BLOOD SPECIMENOrdering Facility: Address: [address] [place] [phone] Performed By: #### 1 9123-9, 2777-1, 46311-1 ####[facility] LABCLIA [id number] [place] [id number] [place] Calcium [Mass/Vol] 10.1 mg/dL Normal 8.5-10.2 [facility] Comment on above: Order Comment: Speci men Type: BLOOD SPECIMENOrdering Facility: Address: [address] [place] [phone] Performed By: #### 1 9123-9, 2777-1, 45971-8 ####[facility] LABCLIA [id number] [address] [address] [place] Chloride [Moles/Vol] 100 mmol/L Normal 97-105 [facility] Comment on above: Order Comment: Speci men Type: BLOOD SPECIMENOrdering Facility: Address: [address] [place], [place] [address] Performed By: #### 1 9123-9, 27711-21, 09350-1 ####[facility] LABCLIA [id number] [place] [address] [place] CO2 [Moles/Vol] 24 mmol/L Normal 22-30 [facility] Comment on above: Order Comment: Speci men Type: BLOOD SPECIMENOrdering Facility: Address: [address] [place] [address] Performed By: #### 1 9123-9, 27711-21, 34588-4 ####[facility] LABCLIA [id number] [place] [address] [place] Creatinine [Mass/Vol] 1.14 mg/dL Normal 0.73-1.22 [facility] Comment on above: Order Comment: Speci men Type: BLOOD SPECIMENOrdering Facility: Address: [address] [place] [address] Performed By: #### 1 9123-9, 27711-21, 57308-5 ####[facility] LABIA [id number] [place] [address] [place] ESTIMATED GLOMERULAR FILTRATION RATE 65 mL/min/1.73m??? Normal >=60 [facility] Comment on above: Order Comment: Speci men Type: BLOOD SPECIMENOrdering Facility: Address: [address] [place], [place] [address] Result Comment: Sandra mated Glomerular Filtration Rate [...] GFR. Performed By: #### 1 9123-9, 2777-, 71603-8 ####[facility] LABCLIA [id number] [address] [address] [place] Glucose [Mass/Vol] 209 mg/dL High 74-99 [facility] Comment on above: Order Comment: Speci men Type: BLOOD SPECIMENOrdering Facility: Address: [address] [phone] Result Comment: The [place] Diabetes Association (ADA) provides guidance for cutoff [...] Standards of Medical Care in Diabetes 2016, [place] Diabetes Association. Diabetes Care. 2016.39(Suppl 1). Performed By: #### 1 9123-9, 2777-, 35172-0 ####[facility] LABIA [id number] [place] [address] [place] Potassium [Moles/Vol] 4.8 mmol/L Normal 3.7-5.1 [facility] Comment on above: Order Comment: Speci men Type: BLOOD SPECIMENOrdering Facility: Address: [address] [place] [address] Performed By: #### 1 9123-9, 2777-, 37123-0 ####[facility] LABIA [id number] [address] [address] [place] Sodium [Moles/Vol] 136 mmol/L Normal 136-144 [facility] Comment on above: Order Comment: Speci men Type: BLOOD SPECIMENOrdering Facility: Address: [address] [place], [place] [address] Performed By: #### 1 9123-9, 2777-1, 88427-5 ####[facility] LABCLIA [id number] [place] [address] [place] Urea nitrogen [Mass/Vol] 32 mg/dL High 9-24 [facility] Comment on above: Order Comment: Speci men Type: BLOOD SPECIMENOrdering Facility: Address: [address] [place], [place] [address] Performed By: #### 1 9123-9, 2777-1, 88814-0 ####[facility] LABCLIA [id number] [place] [address] [place] CASE MANAGEMon 02-03-2022 CASE MANAGEM Normal [facility] CBC W Auto Differential pane l (Bld)on 02-03-2022 Basophils (Bld) [#/Vol] 10*3/uL Normal <0.11 [facility] Comment on above: Order Comment: Speci men Type: BLOOD SPECIMENOrdering Facility: Address: [address] [place], [place] [address] Performed By: #### 5 7021-8 ####[facility] LABCLIA [id number] [place] [address] [place] Basophils/100 WBC (Bld) 0.1 % Normal [facility] Comment on above: Order Comment: Speci men Type: BLOOD SPECIMENOrdering Facility: Address: [address] [place], [place] [address] Performed By: #### 5 7021-8 ####[facility] LABCLIA [id number] [place] [address] [place] Differential cell count method Nom (Bld) Auto Normal [facility] Comment on above: Order Comment: Speci men Type: BLOOD SPECIMENOrdering Facility: Address: [address] [place] [address] Performed By: #### 5 7021-8 ####[facility] LABCLIA [id number] [place] [address] [place] Eosinophils (Bld) [#/Vol] 10*3/uL Normal <0.46 [facility] Comment on above: Order Comment: Speci men Type: BLOOD SPECIMENOrdering Facility: Address: [address] [place], [place] [address] Performed By: #### 5 7021-8 ####[facility] LABCLIA [id number] [place] [address] [place] Eosinophils/100 WBC (Bld) 0.0 % Normal [facility] Comment on above: Order Comment: Speci men Type: BLOOD SPECIMENOrdering Facility: Address: [address] [place], [place] [address] Performed By: #### 5 7021-8 ####[facility] LABCLIA [id number] [place] [address] [place] Erythrocyte distribution width (RBC) [Ratio] 13.2 % Normal 11.5-15.0 [facility] Comment on above: Order Comment: Speci men Type: BLOOD SPECIMENOrdering Facility: Address: [address] [place] [address] Performed By: #### 5 7021-8 ####[facility] LABCLIA [id number] [place] [address] [place] Hematocrit (Bld) [Volume fraction] 34.6 % Low 39.0-51.0 [facility] Comment on above: Order Comment: Speci men Type: BLOOD SPECIMENOrdering Facility: Address: [address] [place], [place] [address] Performed By: #### 5 7021-8 ####[facility] LABCLIA [id number] [place] Hemoglobin (Bld) [Mass/Vol] 11.6 g/dL Low 13.0-17.0 [facility] Comment on above: Order Comment: Speci men Type: BLOOD SPECIMENOrdering Facility: Address: [address] [place] [address] Performed By: #### 5 7021-8 ####[facility] LABCLIA [id number] [address] OF [facility] IMMATURE GRAN % 1.0 % Normal [facility] Comment on above: Order Comment: Speci men Type: BLOOD SPECIMENOrdering Facility: Address: [address] [place] [address] Performed By: #### 5 7021-8 ####[facility] LABCLIA [id number] [address] STATES OF [facility] IMMATURE GRAN ABS 0.15 k/uL High <0.10 [facility] Comment on above: Order Comment: Speci men Type: BLOOD SPECIMENOrdering Facility: Address: [address] [place], [place] [address] Performed By: #### 5 7021-8 ####[facility] LABIA [id number] [place] [address] [place] Lymphocytes (Bld) [#/Vol] 0.79 10*3/uL Low 1.00-4.00 [facility] Comment on above: Order Comment: Speci men Type: BLOOD SPECIMENOrdering Facility: Address: [address] [place], [place] [address] Performed By: #### 5 7021-8 ####[facility] LABCLIA [id number] [address] [place] Lymphocytes/100 WBC (Bld) 5.2 % Normal [facility] Comment on above: Order Comment: Speci men Type: BLOOD SPECIMENOrdering Facility: Address: [address] [place], [place] [address] Performed By: #### 5 7021-8 ####[facility] [id number] [address] MCH (RBC) [Entitic mass] 32.0 pg Normal 26.0-34.0 [facility] Comment on above: Order Comment: Speci men Type: BLOOD SPECIMENOrdering Facility: Address: [address] [place], [place] [address] Performed By: #### 5 7021-8 ####[facility] [id number] [address] [place] MCHC (RBC) [Mass/Vol] 33.5 g/dL Normal 30.5-36.0 [facility] Comment on above: Order Comment: Speci men Type: BLOOD SPECIMENOrdering Facility: Address: [address] [place], [place] [address] Performed By: #### 5 7021-8 ####[facility] [id number] [address] [place] MCV (RBC) [Entitic vol] 95.6 fL Normal 80.0-100.0 [facility] Comment on above: Order Comment: Speci men Type: BLOOD SPECIMENOrdering Facility: Address: [address] [place], [place] [address] Performed By: #### 5 7021-8 ####[facility] [id number] [place] [address] [place] Monocytes (Bld) [#/Vol] 0.10 10*3/uL Normal <0.87 [facility] Comment on above: Order Comment: Speci men Type: BLOOD SPECIMENOrdering Facility: Address: [address] [place], [place] [address] Performed By: #### 5 7021-8 ####[facility] LABCLIA [id number] [address] [address] [place] Monocytes/100 WBC (Bld) 0.7 % Normal [facility] Comment on above: Order Comment: Speci men Type: BLOOD SPECIMENOrdering Facility: Address: [address] [place], [place] [address] Performed By: #### 5 7021-8 ####[facility] LABCLIA [id number] [place] [address] [place] Neutrophils (Bld) [#/Vol] 14.02 10*3/uL High 1.45-7.50 [facility] Comment on above: Order Comment: Speci men Type: BLOOD SPECIMENOrdering Facility: Address: [address] [place] [address] Performed By: #### 5 7021-8 ####[facility] LABCLIA [id number] [place] [address] [place] Neutrophils/100 WBC (Bld) 93.0 % Normal [facility] Comment on above: Order Comment: Speci men Type: BLOOD SPECIMENOrdering Facility: Address: [address] [place] [address] Performed By: #### 5 7021-8 ####[facility] LABCLIA [id number] [place] [address] [place] Nucleated RBC (Bld) [#/Vol] 10*3/uL Normal <0.01 [facility] Comment on above: Order Comment: Speci men Type: BLOOD SPECIMENOrdering Facility: Address: [address] [place] [address] Performed By: #### 5 7021-8 ####[facility] LABCLIA [id number] [place] [address] [place] Nucleated RBC/100 WBC (Bld) [Ratio] 0.0 /100 WBC Normal [facility] Comment on above: Order Comment: Speci men Type: BLOOD SPECIMENOrdering Facility: Address: [address] [place], [place] [address] Performed By: #### 5 7021-8 ####[facility] LABCLIA [id number] [place] [address] [place] Platelet mean volume (Bld) [Entitic vol] 10.3 fL Normal 9.0-12.7 [facility] Comment on above: Order Comment: Speci men Type: BLOOD SPECIMENOrdering Facility: Address: [address] [place], [place] [address] Performed By: #### 5 7021-8 ####[facility] LABCLIA [id number] [place] [address] [place] Platelets (Bld) [#/Vol] 351 10*3/uL Normal 150-400 [facility] Comment on above: Order Comment: Speci men Type: BLOOD SPECIMENOrdering Facility: Address: [address] [place], [place] [address] Performed By: #### 5 7021-8 ####[facility] LABCLIA [id number] [place] [address] [place] RBC (Bld) [#/Vol] 3.62 10*6/uL Low 4.20-6.00 [facility] Comment on above: Order Comment: Speci men Type: BLOOD SPECIMENOrdering Facility: Address: [address] [place], [place] [address] Performed By: #### 5 7021-8 ####[facility] LABCLIA [id number] [place] [address] [place] WBC (Bld) [#/Vol] 15.08 10*3/uL High 3.70-11.00 [facility] Comment on above: Order Comment: Speci men Type: BLOOD SPECIMENOrdering Facility: Address: [address] [place] [address] Performed By: #### 5 7021-8 ####[facility] LABIA [id number] [place] [address] [place] Magnesium SerPl-mCncon 02-03 Magnesium [Mass/Vol] 2.1 mg/dL Normal 1.7-2.3 [facility] Comment on above: Order Comment: Speci men Type: BLOOD SPECIMENOrdering Facility: Address: [address] [place], [place] [address] Performed By: #### 1 9123-9, 2777-1, 69605-1 ####[facility] LABIA [id number] [place] [address] [place] NURSING PROGon 02-03-2022 NURSING PROG Normal [facility] NUTRITIONon 02-03-2022 NUTRITION Normal [facility] PT EDon 02-03-2022 PT ED Normal [facility] Phosphate SerPl-mCncon 02-03 Phosphate [Mass/Vol] 3.2 mg/dL Normal 2.7-4.8 [facility] Comment on above: Order Comment: Speci men Type: BLOOD SPECIMENOrdering Facility: Address: [address] [place] [phone] Performed By: #### 1 9123-9, 2777-1, 22459-6 ####[facility] LABIA [id number] [place] [id number] [place] THERAPY NTon 02-03-2022 THERAPY NT Normal [facility] THERAPY NT Normal [facility] ANES POSTPROC EVALon 022 ANES POSTPROC EVAL Normal [facility] ANES PRE-OPon 02-02-2022 ANES PRE-OP Normal [facility] BRIEF OP NOTon 02-02-2022 BRIEF OP NOT Normal [facility] CNPNon 02-02-2022 CNPN Normal [facility] OPERATIVE NOon 02-02-2022 OPERATIVE NO Normal [facility] CNPNon 01-27-2022 CNPN Normal [facility] HISTORY PHYSICALon 2 HISTORY PHYSICAL Normal [facility] NURSING PROGon 01-24-2022 NURSING PROG Normal [facility] XR ABDOMEN 1V SUPINEon 01-24 XR ABDOMEN 1V SUPINE Normal [facility] XR ABDOMEN 1V SUPINE Normal [facility] CNOVon 2022 CNOV Normal [facility] Tobacco Screening.on 022 Fall risk assessment b) One or more fall s in the last year -[facility] marika 250 DO Work Phone: Tobacco use status CP a) Yes [facility] marika 250 DO Work Phone: Tobacco Screening. Yes [facility] Heart-[facility]u marika 250 DO Work Phone: CNOVon 12-31-2021 CNOV Normal [facility] CNOV Normal [facility] HISTORY PHYSICALon 2 HISTORY PHYSICAL Normal [facility] CULTURE URINEon 12-21-2021 CULTURE URINE Normal [facility] Comment on above: Performed By: #### U RCX ####[facility] [address] [place] [address]Dr. Villa Yanes UA RANDOM W/MICROSCOPICon BACTERIA LARGE Abnormal NONE SEEN [facility] Comment on above: Performed By: #### U AMIC ####[facility] [address] [place] [phone]. [place] Yanes Bilirubin Ql (U) Negative Normal NEGATIVE [facility] Comment on above: Performed By: #### U AMIC ####[facility] Bnvnwxlngh2[address] [place] [address]Dr. [place] Yanes CAST NONE SEEN Normal NONE SEEN [facility] Comment on above: Performed By: #### U AMIC ####[facility] L[address]vxhbjd[address] [place] [address]Dr. [place] Yanes Clarity (U) CLEAR Normal CLEAR [facility] Comment on above: Performed By: #### U AMIC ####[facility] U[address] [place], [place] [address]Dr. Villa Yanes Color (U) LT. YELLOW Normal YELLOW [facility] Comment on above: Performed By: #### U AMIC ####[facility] Yaydbdzjmq[address] [place], [place] [address]Dr. Villa Yanes Crystals LM Nom (Urine sed) NONE SEEN Normal NONE SEEN [facility] Comment on above: Performed By: #### U AMIC ####[facility] Rbuiccwz[address] [place], [place] [address]Dr. Villa Yanes Epithelial cells LM Ql (Urine sed) FEW Abnormal NONE SEEN /RARE [facility] Comment on above: Performed By: #### U AMIC ####[facility] Vabezstjug[address] [place], [place] [address]Dr. Villa Yanes Glucose Ql (U) Negative Normal NEGATIVE [facility] Comment on above: Performed By: #### U AMIC ####[facility] Yrhbtnubks[address] [place], [place] [address]Dr. Villa Yanes Hemoglobin Ql (U) Negative Normal NEGATIVE [facility] Comment on above: Performed By: #### U AMIC ####[facility] Myflnzdrnb[address] [place], [place] [address]Dr. Villa Yanes Ketones Ql (U) Negative Normal NEGATIVE [facility] Comment on above: Performed By: #### U AMIC ####[facility] Zpsjopyylk[address] [place], [place] [address]Dr. Villa Yanes LEUKOCYTES LARGE Abnormal NEGATIVE [facility] Comment on above: Performed By: #### U AMIC ####[facility] Gnpglhizsf[address] [place], [place] [address]Dr. Villa Yanes MUCOUS NONE SEEN Normal NONE SEEN [facility] Comment on above: Performed By: #### U AMIC ####[facility] Mncvfkndpj[address] [place], [place] [address]Dr. Villa Yanes Nitrite Ql (U) Negative Normal NEGATIVE [facility] Comment on above: Performed By: #### U AMIC ####[facility] Nakofgraey0613 [place] [address]Dr. Villa Yanes pH (U) 7.5 [pH] Normal 5-9 [facility] Comment on above: Performed By: #### U AMIC ####[facility] Glnlbifuvd05[address] [place] [phone]. Villa Yanes RBC NONE SEEN Abnormal 0-2 [facility] Comment on above: Performed By: #### U AMIC ####[facility] Phoumcixux[address] [place] [address]Dr. Villa Yanes SPEC GRAVITY 1.015 Normal 1.005-<=1.0 25 [facility] Comment on above: Performed By: #### U AMIC ####[facility] Aqrtuisigf[address] [place], [place] [address]Dr. Villa Yanes UA PROTEIN 100 mg/dl Abnormal NEGATIVE/ TRACE [facility] Comment on above: Performed By: #### U AMIC ####[facility] Wplceautrn[address] [place], [place] [address]Dr. Villa Yanes Urobilinogen Qn (U) 0.2 {Mackenzie'U}/dL Normal 0.2 - 1. 0 [facility] Comment on above: Performed By: #### U AMIC ####[facility] Tst[address] [place], [place] [address]Dr. Villa Yanes WBC 50-75 Abnormal NONE SEEN [facility] Comment on above: Performed By: #### U AMIC ####[facility] Ieiwzxcuja[address] [place], [place] [address]Dr. Villa Joaquín CBC AUTO DIFFon 12-18-2021 BASO # 0.1 103/ul Normal 0.0-0.1 [facility] Comment on above: Performed By: #### C BC ####[facility] Dam[address]jz[address] [place], [place] [address]Dr. Villa Yanes Basophils/100 WBC (Bld) 0.7 % Normal 0.2-2.0 [facility] Comment on above: Performed By: #### C BC ####[facility] Janbtpfsly[address] [place] [id number]. Villa Yanes EO # 0.6 103/ul Normal 0.0-0.7 [facility] Comment on above: Performed By: #### C BC ####[facility] Igjqregavu09[address] [place] [address]Dr. Villa Yanes Eosinophils/100 WBC (Bld) 4.0 % Normal 0.9-7.0 [facility] Comment on above: Performed By: #### C BC ####[facility] [address] [place], [place] [address]Dr. Villa Yanes Erythrocyte distribution width (RBC) [Ratio] 13.9 % Normal 11.0-15.0 [facility] Comment on above: Performed By: #### C BC ####[facility] Vpxwrunpzp[address] [place], [place] [address]Dr. Villa Yanes Hematocrit (Bld) [Volume fraction] 33.4 % Critically low 42.0-54.0 [facility] Comment on above: Performed By: #### C BC ####[facility] Sezxft[address] [place], [place] [address]Dr. Villa Yanes Hemoglobin (Bld) [Mass/Vol] 11.1 g/dL Critically low 14.0-18.0 [facility] Comment on above: Performed By: #### C BC ####[facility] Flnohudoqa[address] [place], [place] [address]Dr. Villa Yanes IG # 0.15 10e3/ul Critically high 0.00-0.03 [facility] Comment on above: Performed By: #### C BC ####[facility] Ceafaapkzq[address] [place], [place] [address]Dr. Villa Yanes IG % 1.0 % Critically high 0.0-0.5 [facility] Comment on above: Performed By: #### C BC ####[facility] Aimooanyst[address] [place], [place] [address]Dr. Villa Yanes LYMPH # 1.9 103/ul Normal 1.2-3.8 [facility] Comment on above: Performed By: #### C BC ####[facility] Onjtskcsbk6[address] [place] [id number]. Villa Joaquín Lymphocytes/100 WBC (Bld) 12.2 % Critically low 20.5-60.0 [facility] Comment on above: Performed By: #### C BC ####[facility] Wwrkhxeyov38[address] [place] [id number]. Villa Yanes MANUAL DIFF REQ NO Normal [facility] Comment on above: Performed By: #### C BC ####[facility] Vbtdzjqtae9581 [place] [id number]. Brooklynkaren Yanes MCH (RBC) [Entitic mass] 31.3 pg Normal 25.9-34.0 [facility] Comment on above: Performed By: #### C BC ####[facility] Vhrhfxjkfj16[address] [place] [address]Dr. Villa Yanes MCHC (RBC) [Mass/Vol] 33.2 g/dL Normal 29.9-35.2 [facility] Comment on above: Performed By: #### C BC ####[facility] Kawyaxydqb5179 [place] [address]Dr. Brooklynkaren Yanes MCV (RBC) [Entitic vol] 94.1 fL Critically high 80.0-94.0 [facility] Comment on above: Performed By: #### C BC ####[facility] Drnrrljqpe[address] [place], [place] [address]Dr. Villa Yanes MONO # 0.9 103/ul Critically high 0.3-0.8 [facility] Comment on above: Performed By: #### C BC ####[facility] Wkpqjgwjvv8047 [place] [address]Dr. Brooklynkaren Yanes Monocytes/100 WBC (Bld) 5.9 % Normal 1.7-12.0 [facility] Comment on above: Performed By: #### C BC ####[facility] O[address] [place], [place] [id number]. Villa Yanes NEUT # 12.0 103/ul Critically high 1.4-6.5 [facility] Comment on above: Performed By: #### C BC ####[facility] Tgkdsziviv4754 [place] [phone]. Villa Yanes Neutrophils/100 WBC (Bld) 76.2 % Critically high 43.0-75.0 [facility] Comment on above: Performed By: #### C BC ####[facility] Qnegspzvpf8808 [place] [address]Dr. Villa Yanes Platelet mean volume (Bld) [Entitic vol] 9.8 fL Normal 9.5-13.5 [facility] Comment on above: Performed By: #### C BC ####[facility] Wnbrxoeqmz9236 [place] [address]Dr. Villa Yanes PLT 397 103/ul Normal 150-450 [facility] Comment on above: Performed By: #### C BC ####[facility] Xgsnuiebmy3544 [place] [address]Dr. Villa Yanes RBC 3.55 106/ul Critically low 4.70-6.10 [facility] Comment on above: Performed By: #### C BC ####[facility] Dwzbjyqgsx9593 [place] [address]Dr. Villa Yanes WBC 15.7 103/ul Critically high 4.0-11.0 [facility] Comment on above: Performed By: #### C BC ####[facility] Pexyhlcdjn2581 [place] [address]Dr. Villa Yanes GLYCOHEMOGLOBIN A1Con 2021 ADA RECOMMENDATION SEE BELOW Normal [facility] Comment on above: Result Comment: ADA RECOMMENDED LIMIT 4.0 - 6.0 ADA THERAPEUTIC TARGET < 7.0 ACTION SUGGESTED > 7.0 Performed By: #### A 1C ####[facility] Fabtvfiblh6[address] [place] [address]Dr. Villa Yanes Glucose [Mass/Vol] 134 mg/dL Normal [facility] Comment on above: Performed By: #### A 1C ####[facility] Qopbodyrmk7970 [place] [phone]. Villa Yanes HbA1c (Bld) [Mass fraction] 6.3 % Critically high 4.5-6.2 [facility] Comment on above: Performed By: #### A 1C ####[facility] Qspjbzfobf4158 [place] [address]Dr. Villa Yanes MAGNESIUMon 12-18-2021 Magnesium [Mass/Vol] 2.2 mg/dL Normal 1.8-2.4 [facility] Comment on above: Performed By: #### M Arabella, PHOS, TSH, CMP ####[facility] Ypowyvvsbj8438 [place] [address]Dr. Villa Yanes PHOSPHORUSon 12-18-2021 Phosphate [Mass/Vol] 3.6 mg/dL Normal 2.6-4.7 [facility] Comment on above: Performed By: #### Dick Bell, PHOS, TSH, CMP ####[facility] Opbezrzegm1131 [place] [address]Dr. Villa Yanes PROF 14(COMP METB)on 022 Albumin [Mass/Vol] 3.2 g/dL Critically low 3.4-5.0 [facility] Comment on above: Performed By: #### Dick Bell, PHOS, TSH, CMP ####[facility] Ndjdxobyaa0012 [place] [address]Dr. Villa Yanes Albumin/Globulin [Mass ratio] 0.8 {ratio} Normal [facility] Comment on above: Performed By: #### Dick Bell, PHOS, TSH, CMP ####[facility] Dkidkljpci5592 [place] [address]Dr. Villa Yanes ALP [Catalytic activity/Vol] 141 U/L Critically high 46-116 [facility] Comment on above: Performed By: #### Dick Bell, PHOS, TSH, CMP ####[facility] Llgxbctzqn0425 [place] [address]Dr. Villa Yanes ALT [Catalytic activity/Vol] 8 U/L Critically low 16-63 [facility] Comment on above: Performed By: #### Dick G, PHOS, TSH, CMP ####[facility] Kibeelbabw8496 [place] [address]Dr. Villa Yanes Anion gap [Moles/Vol] 13.1 mmol/L Normal [facility] Comment on above: Performed By: #### Dick Bell, PHOS, TSH, CMP ####[facility] Ueuofvcbee[address] [place], [place] [address]Dr. Villa Yanes AST [Catalytic activity/Vol] 5 U/L Critically low 15-37 [facility] Comment on above: Performed By: #### Dick Bell, PHOS, TSH, CMP ####[facility] Mzvkxygrqh49[address] [place], [place] [address]Dr. Villa Yanes Bilirubin [Mass/Vol] 0.3 mg/dL Normal 0.2-1.0 [facility] Comment on above: Performed By: #### Dick Bell, PHOS, TSH, CMP ####[facility] Ssybbfzrui[address] [place], [place] [address]Dr. Villa Yanes Calcium [Mass/Vol] 9.3 mg/dL Normal 8.5-10.1 [facility] Comment on above: Performed By: #### Dick Bell, PHOS, TSH, CMP ####[facility] Obnwnoiunt[address] [place], [place] [address]Dr. Villa Yanes Chloride [Moles/Vol] 102 mmol/L Normal 98-107 [facility] Comment on above: Performed By: #### Dick Bell, PHOS, TSH, CMP ####[facility] Njjmqjnarw[address] [place], [place] [address]Dr. Villa Yanes CO2 [Moles/Vol] 28.8 mmol/L Normal 21.0-32.0 [facility] Comment on above: Performed By: #### Dick Bell, PHOS, TSH, CMP ####[facility] Ychiwgtdhw[address] [place], [place] [address]Dr. Villa Yanes Creatinine [Mass/Vol] 1.20 mg/dL Normal 0.70-1.30 [facility] Comment on above: Performed By: #### Dcik G, PHOS, TSH, CMP ####[facility] Hgtnuqcvzq[address] [place], [place] [address]Dr. Villa Yanes EGFR-AF PAKISTANI >60 Normal >=60 [facility] Comment on above: Performed By: #### M G, PHOS, TSH, CMP ####[facility] Hrwqmjjkug0992 [place] [address]Dr. Villa Yanes EGFR-NON AF PAKISTANI 58 mL/min/1.73m2 Critically low >=60 [facility] Comment on above: Performed By: #### M G, PHOS, TSH, CMP ####[facility] Jisqtdcwhd[address] [place], [place] [address]Dr. Villa Yanes Globulin (S) [Mass/Vol] 4.0 g/dL Normal [facility] Comment on above: Performed By: #### M G, PHOS, TSH, CMP ####[facility] Lvcqwntago85[address] [place], [place] [address]Dr. Villa Yanes Glucose [Mass/Vol] 143 mg/dL Critically high 74-106 [facility] Comment on above: Performed By: #### M G, PHOS, TSH, CMP ####[facility] Ohkqqwnkaf84[address] [place], [place] [address]Dr. Villa Yanes Potassium [Moles/Vol] 4.9 mmol/L Normal 3.5-5.1 [facility] Comment on above: Performed By: #### M G, PHOS, TSH, CMP ####[facility] Fjaoytgtah[address] [place], [place] [address]Dr. Villa Yanes Protein [Mass/Vol] 7.2 g/dL Normal 6.4-8.2 [facility] Comment on above: Performed By: #### M G, PHOS, TSH, CMP ####[facility] Ahmodzgadm[address] [place], [place] [address]Dr. Villa Yanes Sodium [Moles/Vol] 139 mmol/L Normal 136-145 [facility] Comment on above: Performed By: #### M G, PHOS, TSH, CMP ####[facility] Orjlvxbkpq6[address] [place], [place] [address]Dr. Villa Yanes Urea nitrogen [Mass/Vol] 46.0 mg/dL Critically high 7.0-18.0 [facility] Comment on above: Performed By: #### M G, PHOS, TSH, CMP ####[facility] Qxntsxeolj8792 [place], [place] [address]Ug. Villa Yanes Urea nitrogen/Creatinine [Mass ratio] 38.3 mg/mg Normal [facility] Comment on above: Performed By: #### M G, PHOS, TSH, CMP ####[facility] Yxkqqzlmwa1885 [place], [place] [address]Gb. Villa Yanes TSHon 12-18-2021 TSH 0.279 uIU/mL Critically low 0.358-3.740 [facility] Comment on above: Performed By: #### M G, PHOS, TSH, CMP ####[facility] Iblsgnnffk9439 [place], [place] [address]Zb. Villa Yanes CNPNon 12-13-2021 CNPN Normal [facility] Bacteria Ur Culton 2 Bacteria identified Cx Nom (U) Abnormal [facility] Comment on above: Performed By: #### 6 30-4 ####[facility] LABCLIA [id number] [address] [place] CNPNon 12-04-2021 CNPN Normal [facility] CT KIDNEY WO/W IVCONon 12-04 Radiology Result ACTIONABLE Abnormal [facility] CNPTOUTREACHon 12-03-2021 CNPTOUTREACH Normal [facility] CT KIDNEY WO/W IVCONon 12-02 CT KIDNEY WO/W IVCON Invalid Interpretation Code [facility] CNOVon 11-27-2021 CNOV Normal [facility] CNPNon 11-27-2021 CNPN Normal [facility] CNPTOUTREACHon 11-27-2021 CNPTOUTREACH Normal [facility] CASE MANAGEMon 11-20-2021 CASE MANAGEM Normal [facility] CBC panel Auto (Bld)on 11-20 Erythrocyte distribution width (RBC) [Ratio] 13.4 % Normal 11.5-15.0 [facility] Comment on above: Order Comment: Speci men Type: BLOOD SPECIMENOrdering Facility: Address: [address] [place], [place] [address] Performed By: #### 5 8410-2 ####[facility] LABCLIA [id number] [place] [address] [place] Hematocrit (Bld) [Volume fraction] 26.6 % Low 39.0-51.0 [facility] Comment on above: Order Comment: Speci men Type: BLOOD SPECIMENOrdering Facility: Address: [address] [place], [place] [address] Performed By: #### 5 8410-2 ####[facility] LABIA [id number] [address] [place] Hemoglobin (Bld) [Mass/Vol] 8.9 g/dL Low 13.0-17.0 [facility] Comment on above: Order Comment: Speci men Type: BLOOD SPECIMENOrdering Facility: Address: [address] [place], [place] [address] Performed By: #### 5 8410-2 ####[facility] LABIA [id number] [place] [address] [place] MCH (RBC) [Entitic mass] 30.9 pg Normal 26.0-34.0 [facility] Comment on above: Order Comment: Speci men Type: BLOOD SPECIMENOrdering Facility: Address: [address] [place], [place] [address] Performed By: #### 5 8410-2 ####[facility] LABCLIA [id number] [place] [address] [place] MCHC (RBC) [Mass/Vol] 33.5 g/dL Normal 30.5-36.0 [facility] Comment on above: Order Comment: Speci men Type: BLOOD SPECIMENOrdering Facility: Address: [address] [place], [place] [address] Performed By: #### 5 8410-2 ####[facility] LABCLIA [id number] [place] [address] [place] MCV (RBC) [Entitic vol] 92.4 fL Normal 80.0-100.0 [facility] Comment on above: Order Comment: Speci men Type: BLOOD SPECIMENOrdering Facility: Address: [address] [place], [place] [address] Performed By: #### 5 8410-2 ####[facility] LABIA [id number] [address] [place] Nucleated RBC (Bld) [#/Vol] 10*3/uL Normal <0.01 [facility] Comment on above: Order Comment: Speci men Type: BLOOD SPECIMENOrdering Facility: Address: [address] [place], [place] [address] Performed By: #### 5 8410-2 ####[facility] LABIA [id number] [address] [place] Platelet mean volume (Bld) [Entitic vol] 10.4 fL Normal 9.0-12.7 [facility] Comment on above: Order Comment: Speci men Type: BLOOD SPECIMENOrdering Facility: Address: [address] [place], [place] [address] Performed By: #### 5 8410-2 ####[facility] LABIA [id number] [place] [address] [place] Platelets (Bld) [#/Vol] 240 10*3/uL Normal 150-400 [facility] Comment on above: Order Comment: Speci men Type: BLOOD SPECIMENOrdering Facility: Address: [address] [place], [place] [address] Performed By: #### 5 8410-2 ####[facility] LABCLIA [id number] [place] [address] [place] RBC (Bld) [#/Vol] 2.88 10*6/uL Low 4.20-6.00 [facility] Comment on above: Order Comment: Speci men Type: BLOOD SPECIMENOrdering Facility: Address: [address] [place] [address] Performed By: #### 5 8410-2 ####[facility] LABCLIA [id number] [place] [address] [place] WBC (Bld) [#/Vol] 9.03 10*3/uL Normal 3.70-11.00 [facility] Comment on above: Order Comment: Speci men Type: BLOOD SPECIMENOrdering Facility: Address: [address] [place] [address] Performed By: #### 5 8410-2 ####[facility] LABCLIA [id number] [place] [address] [place] CNDSon 11-20-2021 CNDS Normal [facility] CNPNon 11-20-2021 CNPN Normal [facility] Magnesium SerPl-mCncon 11-20 Magnesium [Mass/Vol] 2.1 mg/dL Normal 1.7-2.3 [facility] Comment on above: Order Comment: Speci men Type: BLOOD SPECIMENOrdering Facility: Address: [address] [place] [address] Performed By: #### 2 4362-6, 52546-8 ####[facility] LABCLIA [id number] [place] [address] [place] NURSING PROGon 11-20-2021 NURSING PROG Normal [facility] Renal function 2000 panelon 11-20-2021 Albumin [Mass/Vol] 2.5 g/dL Low 3.9-4.9 [facility] Comment on above: Order Comment: Speci men Type: BLOOD SPECIMENOrdering Facility: Address: [address] [place], [place] [address] Performed By: #### 2 4362-6 ####[facility] LABCLIA [id number] [facility] [place] [address] [place] Anion gap [Moles/Vol] 6 mmol/L Low 9-18 [facility] Comment on above: Order Comment: Speci men Type: BLOOD SPECIMENOrdering Facility: Address: [address] [place], [place] [address] Performed By: #### 2 4362-6 ####[facility] LABCLIA [id number] [place] [address] [place] Calcium [Mass/Vol] 7.9 mg/dL Low 8.5-10.2 [facility] Comment on above: Order Comment: Speci men Type: BLOOD SPECIMENOrdering Facility: Address: [address] [place], [place] [address] Performed By: #### 2 4362-6 ####[facility] LABCLIA [id number] [place] [address] [place] Chloride [Moles/Vol] 101 mmol/L Normal 97-105 [facility] Comment on above: Order Comment: Speci men Type: BLOOD SPECIMENOrdering Facility: Address: [address] [place] [address] Performed By: #### 2 4362-6 ####[facility] LABCLIA [id number] [place] [address] [place] CO2 [Moles/Vol] 30 mmol/L Normal 22-30 [facility] Comment on above: Order Comment: Speci men Type: BLOOD SPECIMENOrdering Facility: Address: [address] [place] [address] Performed By: #### 2 4362-6 ####[facility] LABCLIA [id number] [place] [id number] [place] Creatinine [Mass/Vol] 1.15 mg/dL Normal 0.73-1.22 [facility] Comment on above: Order Comment: Misbah padilla Type: BLOOD SPECIMENOrdering Facility: Address: [address] [id number] Performed By: #### 2 4362-6 ####[facility] LABCLIA [id number] [place] [address] [place] ESTIMATED GLOMERULAR FILTRATION RATE 65 mL/min/1.73m??? Normal >=60 [facility] Comment on above: Order Comment: Misbah padilla Type: BLOOD SPECIMENOrdering Facility: Address: [address] Result Comment: Sandra mated Glomerular Filtration [...] actual GFR. Performed By: #### 2 4362-6 ####[facility] LABCLIA [id number] [place] [address] [place] Glucose [Mass/Vol] 135 mg/dL High 74-99 [facility] Comment on above: Order Comment: Misbah valerie Type: BLOOD SPECIMENOrdering Facility: Address: [address] Result Comment: The [place] Diabetes Association (ADA) provides guidance for cutoff [...] Standards of Medical Care in Diabetes 2016, [place] Diabetes Association. Diabetes Care. 2016.39(Suppl 1). Performed By: #### 2 4362-6 ####[facility] LABCLIA [id number] [place] [address] [place] Phosphate [Mass/Vol] 3.8 mg/dL Normal 2.7-4.8 [facility] Comment on above: Order Comment: Speci men Type: BLOOD SPECIMENOrdering Facility: Address: [address] [place], [place] [address] Performed By: #### 2 4362-6 ####[facility] LABIA [id number] [place] [address] [place] Potassium [Moles/Vol] 4.1 mmol/L Normal 3.7-5.1 [facility] Comment on above: Order Comment: Speci men Type: BLOOD SPECIMENOrdering Facility: Address: [address] [place] [address] Performed By: #### 2 4362-6 ####[facility] LABIA [id number] [place] [address] [place] Sodium [Moles/Vol] 137 mmol/L Normal 136-144 [facility] Comment on above: Order Comment: Speci men Type: BLOOD SPECIMENOrdering Facility: Address: [address] [place], [place] [address] Performed By: #### 2 4362-6 ####[facility] LABIA [id number] [place] [address] [place] Urea nitrogen [Mass/Vol] 17 mg/dL Normal 9-24 [facility] Comment on above: Order Comment: Speci men Type: BLOOD SPECIMENOrdering Facility: Address: [address] [place] [address] Performed By: #### 2 4362-6 ####[facility] LABIA [id number] [place] [address] [place] Albumin [Mass/Vol] 2.5 g/dL Low 3.9-4.9 [facility] Comment on above: Order Comment: Speci men Type: BLOOD SPECIMENOrdering Facility: Address: [address] [place], [place] [address] Performed By: #### 2 4362-6, ####[facility] LABCLIA [id number] [place] [address] [place] Anion gap [Moles/Vol] 7 mmol/L Low 9-18 [facility] Comment on above: Order Comment: Speci men Type: BLOOD SPECIMENOrdering Facility: Address: [address] [place], [place] [address] Performed By: #### 2 4362-6, ####[facility] LABCLIA [id number] [place] [address] [place] Calcium [Mass/Vol] 8.2 mg/dL Low 8.5-10.2 [facility] Comment on above: Order Comment: Speci men Type: BLOOD SPECIMENOrdering Facility: Address: [address] [place], [place] [address] Performed By: #### 2 4362-6, ####[facility] LABCLIA [id number] [place] [address] [place] Chloride [Moles/Vol] 104 mmol/L Normal 97-105 [facility] Comment on above: Order Comment: Speci men Type: BLOOD SPECIMENOrdering Facility: Address: [address] [place], [place] [address] Performed By: #### 2 4362-6, ####[facility] LABCLIA [id number] [place] [id number] [place] CO2 [Moles/Vol] 28 mmol/L Normal 22-30 [facility] Comment on above: Order Comment: Speci men Type: BLOOD SPECIMENOrdering Facility: Address: [address] [place], [place] [address] Performed By: #### 2 4362-6, ####[facility] LABCLIA [id number] [place] [id number] [place] Creatinine [Mass/Vol] 1.22 mg/dL Normal 0.73-1.22 [facility] Comment on above: Order Comment: Speci men Type: BLOOD SPECIMENOrdering Facility: Address: [address] [place], [place] [address] Performed By: #### 2 4362-6, ####[facility] LABIA [id number] [place] [address] [place] ESTIMATED GLOMERULAR FILTRATION RATE 60 mL/min/1.73m??? Normal >=60 [facility] Comment on above: Order Comment: Speci men Type: BLOOD SPECIMENOrdering Facility: Address: [address] [place], [place] [address] Result Comment: Sandra mated Glomerular Filtration Rate [...] actual GFR. Performed By: #### 2 4362-6, ####[facility] LABIA [id number] [place] [address] [place] Glucose [Mass/Vol] 177 mg/dL High 74-99 [facility] Comment on above: Order Comment: Speci men Type: BLOOD SPECIMENOrdering Facility: Address: [address] [place], [place] [address] Result Comment: The [place] Diabetes Association (ADA) provides guidance for cutoff [...] Standards of Medical Care in Diabetes 2016, [place] Diabetes Association. Diabetes Care. 2016.39(Suppl 1). Performed By: #### 2 4362-6, ####[facility] LABIA [id number] [place] [address] [place] Phosphate [Mass/Vol] 2.0 mg/dL Low 2.7-4.8 [facility] Comment on above: Order Comment: Speci men Type: BLOOD SPECIMENOrdering Facility: Address: [address] [place], [place] [address] Performed By: #### 2 4362-6, ####[facility] LABIA [id number] [place] [address] [place] Potassium [Moles/Vol] 3.8 mmol/L Normal 3.7-5.1 [facility] Comment on above: Order Comment: Speci men Type: BLOOD SPECIMENOrdering Facility: Address: [address] [place], [place] [address] Performed By: #### 2 4362-6, ####[facility] LABIA [id number] [place] [address] [place] Sodium [Moles/Vol] 139 mmol/L Normal 136-144 [facility] Comment on above: Order Comment: Speci men Type: BLOOD SPECIMENOrdering Facility: Address: [address] [place], [place] [address] Performed By: #### 2 4362-6, ####[facility] LABCLIA [id number] [place] [address] [place] Urea nitrogen [Mass/Vol] 16 mg/dL Normal 9-24 [facility] Comment on above: Order Comment: Speci men Type: BLOOD SPECIMENOrdering Facility: Address: [address] [place], [place] [address] Performed By: #### 2 4362-6, ####[facility] LABCLIA [id number] [place] [address] [place] THERAPY NTon 11-20-2021 THERAPY NT Normal [facility] CASE MANAGEMon 11-19-2021 CASE MANAGEM Normal [facility] CBC panel Auto (Bld)on 11-19 Erythrocyte distribution width (RBC) [Ratio] 13.3 % Normal 11.5-15.0 [facility] Comment on above: Order Comment: Speci men Type: BLOOD SPECIMENOrdering Facility: Address: [address] [place], [place] [address] Performed By: #### 5 8410-2 ####[facility] LABIA [id number] [place] [address] [place] Hematocrit (Bld) [Volume fraction] 28.3 % Low 39.0-51.0 [facility] Comment on above: Order Comment: Speci men Type: BLOOD SPECIMENOrdering Facility: Address: [address] [place], [place] [address] Performed By: #### 5 8410-2 ####[facility] LABCLIA [id number] [place] [address] [place] Hemoglobin (Bld) [Mass/Vol] 9.1 g/dL Low 13.0-17.0 [facility] Comment on above: Order Comment: Speci men Type: BLOOD SPECIMENOrdering Facility: Address: [address] [place] [address] Performed By: #### 5 8410-2 ####[facility] LABIA [id number] [address] STATES [facility] MCH (RBC) [Entitic mass] 30.2 pg Normal 26.0-34.0 [facility] Comment on above: Order Comment: Speci men Type: BLOOD SPECIMENOrdering Facility: Address: [address] [place], [place] [address] Performed By: #### 5 8410-2 ####[facility] LABIA [id number] [address] MCHC (RBC) [Mass/Vol] 32.2 g/dL Normal 30.5-36.0 [facility] Comment on above: Order Comment: Speci men Type: BLOOD SPECIMENOrdering Facility: Address: [address] [place], [place] [address] Performed By: #### 5 8410-2 ####[facility] LABIA [id number] [address] [place] MCV (RBC) [Entitic vol] 94.0 fL Normal 80.0-100.0 [facility] Comment on above: Order Comment: Speci men Type: BLOOD SPECIMENOrdering Facility: Address: [address] [place] [address] Performed By: #### 5 8410-2 ####[facility] LABIA [id number] [address] [place] Nucleated RBC (Bld) [#/Vol] 10*3/uL Normal <0.01 [facility] Comment on above: Order Comment: Speci men Type: BLOOD SPECIMENOrdering Facility: Address: [address] [place], [place] [address] Performed By: #### 5 8410-2 ####[facility] LABCLIA [id number] [place] [address] [place] Platelet mean volume (Bld) [Entitic vol] 10.2 fL Normal 9.0-12.7 [facility] Comment on above: Order Comment: Speci men Type: BLOOD SPECIMENOrdering Facility: Address: [address] [place], [place] [address] Performed By: #### 5 8410-2 ####[facility] LABIA [id number] [place] [address] [place] Platelets (Bld) [#/Vol] 262 10*3/uL Normal 150-400 [facility] Comment on above: Order Comment: Speci men Type: BLOOD SPECIMENOrdering Facility: Address: [address] [place], [place] [address] Performed By: #### 5 8410-2 ####[facility] LABIA [id number] [place] [address] [place] RBC (Bld) [#/Vol] 3.01 10*6/uL Low 4.20-6.00 [facility] Comment on above: Order Comment: Speci men Type: BLOOD SPECIMENOrdering Facility: Address: [address] [place] [address] Performed By: #### 5 8410-2 ####[facility] LABIA [id number] [place] [address] [place] WBC (Bld) [#/Vol] 9.65 10*3/uL Normal 3.70-11.00 [facility] Comment on above: Order Comment: Speci men Type: BLOOD SPECIMENOrdering Facility: Address: [address] [place], [place] [address] Performed By: #### 5 8410-2 ####[facility] LABIA [id number] [place] [address] [place] Magnesium SerPl-mCncon 06-29 -2022 Magnesium [Mass/Vol] 2.2 mg/dL Normal 1.7-2.3 [facility] Comment on above: Order Comment: Speci men Type: BLOOD SPECIMENOrdering Facility: Address: [address] [place] [address] Performed By: #### 1 9123-9, 47091-1 ####[facility] LABCLIA [id number] [place] [address] [place] NUTRITIONon 11-19-2021 NUTRITION Normal [facility] PT EDon 11-19-2021 PT ED Normal [facility] Renal function 2000 panelon 11-19-2021 Albumin [Mass/Vol] 2.4 g/dL Low 3.9-4.9 [facility] Comment on above: Order Comment: Speci men Type: BLOOD SPECIMENOrdering Facility: Address: [address] [place] [address] Performed By: #### 1 9123-9, 06613-5 ####[facility] LABCLIA [id number] [place] [address] [place] Anion gap [Moles/Vol] 7 mmol/L Low 9-18 [facility] Comment on above: Order Comment: Speci men Type: BLOOD SPECIMENOrdering Facility: Address: [address] [place], [place] [address] Performed By: #### 1 9123-9, 62805-0 ####[facility] LABCLIA [id number] [place] [address] [place] Calcium [Mass/Vol] 8.5 mg/dL Normal 8.5-10.2 [facility] Comment on above: Order Comment: Speci men Type: BLOOD SPECIMENOrdering Facility: Address: [address] [place], [place] [address] Performed By: #### 1 9123-9, 62615-4 ####[facility] LABCLIA [id number] [place] [address] [place] Chloride [Moles/Vol] 105 mmol/L Normal 97-105 [facility] Comment on above: Order Comment: Speci men Type: BLOOD SPECIMENOrdering Facility: Address: [address] [place] [address] Performed By: #### 1 9123-9, 75079-9 ####[facility] LABCLIA [id number] [place] [address] [place] CO2 [Moles/Vol] 27 mmol/L Normal 22-30 [facility] Comment on above: Order Comment: Speci men Type: BLOOD SPECIMENOrdering Facility: Address: [address] [place] [address] Performed By: #### 1 9123-9, 91787-0 ####[facility] LABIA [id number] [address] STATES OF [facility] Creatinine [Mass/Vol] 1.22 mg/dL Normal 0.73-1.22 [facility] Comment on above: Order Comment: Speci men Type: BLOOD SPECIMENOrdering Facility: Address: [address] [place] [address] Performed By: #### 1 9123-9, 38684-4 ####[facility] LABIA [id number] [address] OF [facility] ESTIMATED GLOMERULAR FILTRATION RATE 60 mL/min/1.73m??? Normal >=60 [facility] Comment on above: Order Comment: Speci men Type: BLOOD SPECIMENOrdering Facility: Address: [address] [place] [address] Result Comment: Sandra [...] actual GFR. Performed By: #### 1 9123-9, 26680-9 ####[facility] LABCLIA [id number] [address] [address] [place] Glucose [Mass/Vol] 146 mg/dL High 74-99 [facility] Comment on above: Order Comment: Misbah padilla Type: BLOOD SPECIMENOrdering Facility: Address: [address] [place] [address] Result Comment: The [place] Diabetes Association (ADA) provides guidance for cutoff [...] Standards of Medical Care in Diabetes 2016, [place] Diabetes Association. Diabetes Care. 2016.39(Suppl 1). Performed By: #### 1 9123-9, 56235-1 ####[facility] LABCLIA [id number] [address] [address] [place] Phosphate [Mass/Vol] 3.0 mg/dL Normal 2.7-4.8 [facility] Comment on above: Order Comment: Misbah padilla Type: BLOOD SPECIMENOrdering Facility: Address: [address] [place] [address] Performed By: #### 1 9123-9, 48198-4 ####[facility] LABIA [id number] [address] [address] [place] Potassium [Moles/Vol] 4.1 mmol/L Normal 3.7-5.1 [facility] Comment on above: Order Comment: Speci men Type: BLOOD SPECIMENOrdering Facility: Address: [address] [place], [place] [address] Performed By: #### 1 9123-9, 73030-1 ####[facility] LABCLIA [id number] [place] [address] [place] Sodium [Moles/Vol] 139 mmol/L Normal 136-144 [facility] Comment on above: Order Comment: Speci men Type: BLOOD SPECIMENOrdering Facility: Address: [address] [place], [place] [address] Performed By: #### 1 9123-9, 07850-2 ####[facility] LABCLIA [id number] [address] [place] Urea nitrogen [Mass/Vol] 10 mg/dL Normal 9-24 [facility] Comment on above: Order Comment: Speci men Type: BLOOD SPECIMENOrdering Facility: Address: [address] [place], [place] [address] Performed By: #### 1 9123-9, 16319-4 ####[facility] LABCLIA [id number] [place] [address] [place] THERAPY NTon 11-19-2021 THERAPY NT Normal [facility] CASE MANAGEMon 11-18-2021 CASE MANAGEM Normal [facility] CBC panel Auto (Bld)on 11-18 Erythrocyte distribution width (RBC) [Ratio] 13.4 % Normal 11.5-15.0 [facility] Comment on above: Order Comment: Speci men Type: BLOOD SPECIMENOrdering Facility: Address: [address] [place], [place] [address] Performed By: #### 5 8410-2 ####[facility] LABCLIA [id number] [address] [place] Hematocrit (Bld) [Volume fraction] 28.5 % Low 39.0-51.0 [facility] Comment on above: Order Comment: Speci men Type: BLOOD SPECIMENOrdering Facility: Address: [address] [place] [address] Performed By: #### 5 8410-2 ####[facility] LABCLIA [id number] [place] [address] [place] Hemoglobin (Bld) [Mass/Vol] 9.0 g/dL Low 13.0-17.0 [facility] Comment on above: Order Comment: Speci men Type: BLOOD SPECIMENOrdering Facility: Address: [address] [place] [address] Performed By: #### 5 8410-2 ####[facility] LABCLIA [id number] [place] [address] [place] MCH (RBC) [Entitic mass] 30.4 pg Normal 26.0-34.0 [facility] Comment on above: Order Comment: Speci men Type: BLOOD SPECIMENOrdering Facility: Address: [address] [place] [address] Performed By: #### 5 8410-2 ####[facility] LABIA [id number] [place] [address] [place] MCHC (RBC) [Mass/Vol] 31.6 g/dL Normal 30.5-36.0 [facility] Comment on above: Order Comment: Speci men Type: BLOOD SPECIMENOrdering Facility: Address: [address] [place], [place] [address] Performed By: #### 5 8410-2 ####[facility] LABCLIA [id number] [place] [address] [place] MCV (RBC) [Entitic vol] 96.3 fL Normal 80.0-100.0 [facility] Comment on above: Order Comment: Speci men Type: BLOOD SPECIMENOrdering Facility: Address: [address] [place], [place] [address] Performed By: #### 5 8410-2 ####[facility] LABIA [id number] [place] [address] [place] [facility] Nucleated RBC (Bld) [#/Vol] 10*3/uL Normal <0.01 [facility] Comment on above: Order Comment: Speci men Type: BLOOD SPECIMENOrdering Facility: Address: [address] [place], [place] [address] Performed By: #### 5 8410-2 ####[facility] [id number] [place] [address] [place] Platelet mean volume (Bld) [Entitic vol] 10.3 fL Normal 9.0-12.7 [facility] Comment on above: Order Comment: Speci men Type: BLOOD SPECIMENOrdering Facility: Address: [address] [place], [place] [address] Performed By: #### 5 8410-2 ####[facility] LABIA [id number] [address] [place] Platelets (Bld) [#/Vol] 228 10*3/uL Normal 150-400 [facility] Comment on above: Order Comment: Speci men Type: BLOOD SPECIMENOrdering Facility: Address: [address] [place] [address] Performed By: #### 5 8410-2 ####[facility] LABIA [id number] [place] [address] [place] RBC (Bld) [#/Vol] 2.96 10*6/uL Low 4.20-6.00 [facility] Comment on above: Order Comment: Speci men Type: BLOOD SPECIMENOrdering Facility: Address: [address] [place], [place] [address] Performed By: #### 5 8410-2 ####[facility] LABCLIA [id number] [place] [address] [place] WBC (Bld) [#/Vol] 8.72 10*3/uL Normal 3.70-11.00 [facility] Comment on above: Order Comment: Speci men Type: BLOOD SPECIMENOrdering Facility: Address: [address] [place] [address] Performed By: #### 5 8410-2 ####[facility] LABCLIA [id number] [place] [address] [place] Magnesium SerPl-[facility] 11-18 Magnesium [Mass/Vol] 1.7 mg/dL Normal 1.7-2.3 [facility] Comment on above: Order Comment: Speci men Type: BLOOD SPECIMENOrdering Facility: Address: [address] [place], [place] [address] Performed By: #### 1 9123-9, 2777-1, 72012-5 ####[facility] LABIA [id number] [place] [address] [place] NURSING PROGon 11-18-2021 NURSING PROG Normal [facility] Phosphate SerPl-mCncon 11-18 Phosphate [Mass/Vol] 3.7 mg/dL Normal 2.7-4.8 [facility] Comment on above: Order Comment: Speci men Type: BLOOD SPECIMENOrdering Facility: Address: [address] [place] [address] Performed By: #### 1 9123-9, 2777-1, 49660-8 ####[facility] LABIA [id number] [place] [address] [place] Renal function 2000 panelon 11-18-2021 Albumin [Mass/Vol] 2.2 g/dL Low 3.9-4.9 [facility] Comment on above: Order Comment: Speci men Type: BLOOD SPECIMENOrdering Facility: Address: [address] [place], [place] [address] Performed By: #### 1 9123-9, 2777-, 83571-6 ####[facility] LABCLIA [id number] [place] [address] [place] Anion gap [Moles/Vol] 11 mmol/L Normal 9-18 [facility] Comment on above: Order Comment: Speci men Type: BLOOD SPECIMENOrdering Facility: Address: [address] [place], [place] [address] Performed By: #### 1 9123-9, 2777-1, 84589-7 ####[facility] LABCLIA [id number] [place] [address] [place] Calcium [Mass/Vol] 8.9 mg/dL Normal 8.5-10.2 [facility] Comment on above: Order Comment: Speci men Type: BLOOD SPECIMENOrdering Facility: Address: [address] [place], [place] [address] Performed By: #### 1 9123-9, 2777-, 64820-1 ####[facility] LABCLIA [id number] [place] [address] [place] Chloride [Moles/Vol] 107 mmol/L High 97-105 [facility] Comment on above: Order Comment: Speci men Type: BLOOD SPECIMENOrdering Facility: Address: [address] [place], [place] [address] Performed By: #### 1 9123-9, 2777-1, 32528-1 ####[facility] LABCLIA [id number] [place] [id number] [place] CO2 [Moles/Vol] 23 mmol/L Normal 22-30 [facility] Comment on above: Order Comment: Speci men Type: BLOOD SPECIMENOrdering Facility: Address: [address] [place] [id number] Performed By: #### 1 9123-9, 2777-, 60597-2 ####[facility] LABIA [id number] [place] [address] [place] Creatinine [Mass/Vol] 1.14 mg/dL Normal 0.73-1.22 [facility] Comment on above: Order Comment: Speci men Type: BLOOD SPECIMENOrdering Facility: Address: [address] [place], [place] [address] Performed By: #### 1 9123-9, 2777-, 91256-8 ####[facility] [id number] [place] [address] [place] ESTIMATED GLOMERULAR FILTRATION RATE 65 mL/min/1.73m??? Normal >=60 [facility] Comment on above: Order Comment: Speci men Type: BLOOD SPECIMENOrdering Facility: Address: [address] [place] [address] Result Comment: Sandra [...] GFR. Performed By: #### 1 9123-9, 2777-, 09003-4 ####[facility] LABIA [id number] [place] [id number] [place] Glucose [Mass/Vol] 89 mg/dL Normal 74-99 [facility] Comment on above: Order Comment: Speci men Type: BLOOD SPECIMENOrdering Facility: Address: [address] [place], [place] [address] Result Comment: The [place] Diabetes Association (ADA) provides guidance for cutoff [...] Standards of Medical Care in Diabetes 2016, [place] Diabetes Association. Diabetes Care. 2016.39(Suppl 1). Performed By: #### 1 9123-9, 2777-1, 43575-8 ####[facility] LABIA [id number] [place] [address] [place] Phosphate [Mass/Vol] 3.8 mg/dL Normal 2.7-4.8 [facility] Comment on above: Order Comment: Speci men Type: BLOOD SPECIMENOrdering Facility: Address: [address] [place] [address] Performed By: #### 1 9123-9, 2777-1, 70313-3 ####[facility] LABIA [id number] [place] [address] [place] Potassium [Moles/Vol] 4.2 mmol/L Normal 3.7-5.1 [facility] Comment on above: Order Comment: Speci men Type: BLOOD SPECIMENOrdering Facility: Address: [address] [place], [place] [address] Performed By: #### 1 9123-9, 2777-1, 17420-4 ####[facility] LABIA [id number] [place] [address] [place] Sodium [Moles/Vol] 141 mmol/L Normal 136-144 [facility] Comment on above: Order Comment: Speci men Type: BLOOD SPECIMENOrdering Facility: Address: [address] Performed By: #### 1 9123-9, 2777-1, 63970-6 ####[facility] LABCLIA [id number] [place] [address] [place] Urea nitrogen [Mass/Vol] 5 mg/dL Low 9-24 [facility] Comment on above: Order Comment: Speci men Type: BLOOD SPECIMENOrdering Facility: Address: [address] [place] [address] Performed By: #### 1 9123-9, 2777-1, 02444-2 ####[facility] LABIA [id number] [place] [address] [place] THERAPY NTon 11-18-2021 THERAPY NT Normal [facility] XR ABDOMEN 1V SUPINEon 11-18 XR ABDOMEN 1V SUPINE [facility] XR ABDOMEN 1V SUPINE Normal [facility] ANES POSTPROC EVALon 022 ANES POSTPROC EVAL Normal [facility] ANES PRE-OPon 11-17-2021 ANES PRE-OP Normal [facility] BRIEF OP NOTon 11-17-2021 BRIEF OP NOT Normal [facility] CASE MANAGEMon 11-17-2021 CASE MANAGEM Normal [facility] CBC panel Auto (Bld)on 11-17 Erythrocyte distribution width (RBC) [Ratio] 13.4 % Normal 11.5-15.0 [facility] Comment on above: Order Comment: Speci men Type: BLOOD SPECIMENOrdering Facility: Address: [address] [place], [place] [address] Performed By: #### 5 8410-2 ####[facility] LABIA [id number] [place] [address] [place] Hematocrit (Bld) [Volume fraction] 24.8 % Low 39.0-51.0 [facility] Comment on above: Order Comment: Speci men Type: BLOOD SPECIMENOrdering Facility: Address: [address] [place] [id number] Performed By: #### 5 8410-2 ####[facility] LABIA [id number] [place] [address] [place] Hemoglobin (Bld) [Mass/Vol] 8.0 g/dL Low 13.0-17.0 [facility] Comment on above: Order Comment: Speci men Type: BLOOD SPECIMENOrdering Facility: Address: [address] [place], [place] [address] Performed By: #### 5 8410-2 ####[facility] LABIA [id number] [address] [place] MCH (RBC) [Entitic mass] 30.2 pg Normal 26.0-34.0 [facility] Comment on above: Order Comment: Speci men Type: BLOOD SPECIMENOrdering Facility: Address: [address] [place], [place] [address] Performed By: #### 5 8410-2 ####[facility] LABIA [id number] [address] [place] MCHC (RBC) [Mass/Vol] 32.3 g/dL Normal 30.5-36.0 [facility] Comment on above: Order Comment: Speci men Type: BLOOD SPECIMENOrdering Facility: Address: [address] [place] [address] Performed By: #### 5 8410-2 ####[facility] LABIA [id number] [place] [address] [place] MCV (RBC) [Entitic vol] 93.6 fL Normal 80.0-100.0 [facility] Comment on above: Order Comment: Speci men Type: BLOOD SPECIMENOrdering Facility: Address: [address] [place], [place] [address] Performed By: #### 5 8410-2 ####[facility] LABIA [id number] [place] [address] [place] Nucleated RBC (Bld) [#/Vol] 10*3/uL Normal <0.01 [facility] Comment on above: Order Comment: Speci men Type: BLOOD SPECIMENOrdering Facility: Address: [address] [place], [place] [address] Performed By: #### 5 8410-2 ####[facility] [id number] [place] [address] [place] Platelet mean volume (Bld) [Entitic vol] 10.1 fL Normal 9.0-12.7 [facility] Comment on above: Order Comment: Speci men Type: BLOOD SPECIMENOrdering Facility: Address: [address] [place] [address] Performed By: #### 5 8410-2 ####[facility] [id number] [place] [address] [place] Platelets (Bld) [#/Vol] 235 10*3/uL Normal 150-400 [facility] Comment on above: Order Comment: Speci men Type: BLOOD SPECIMENOrdering Facility: Address: [address] [place], [place] [address] Performed By: #### 5 8410-2 ####[facility] [id number] [place] [address] [place] RBC (Bld) [#/Vol] 2.65 10*6/uL Low 4.20-6.00 [facility] Comment on above: Order Comment: Speci men Type: BLOOD SPECIMENOrdering Facility: Address: [address] [place] [address] Performed By: #### 5 8410-2 ####[facility] LABIA [id number] [place] [address] [place] WBC (Bld) [#/Vol] 9.08 10*3/uL Normal 3.70-11.00 [facility] Comment on above: Order Comment: Speci men Type: BLOOD SPECIMENOrdering Facility: Address: [address] [place] [address] Performed By: #### 5 8410-2 ####[facility] LABCLIA [id number] [address] OF [facility] OPERATIVE NOon 11-17-2021 OPERATIVE NO Normal [facility] PT panel Coag (PPP)on 2021 INR Coag (PPP) [Relative time] 1.2 {INR} Normal 0.9-1.3 [facility] Comment on above: Order Comment: Misbah valerie Type: BLOOD SPECIMENOrdering Facility: Address: [address] [place] [address] Result Comment: Pippa min K Antagonist (VKA) Therapeutic Range: INR 2 to 3 (Target INR of 2.5)Note: For patients treated with VKA drugs, such as warfarin, the [employer] 2012 Guideline recommends [...] al. Chest 2012, 141:7S-47SNishimura RA, et al. [facility] 2017, 70: 252-289 Performed By: #### 3 4528-0 ####[facility] LABCLIA [id number] [place] [address] [place] PT Coag (PPP) [Time] 12.1 s Normal 9.7-13.0 [facility] Comment on above: Order Comment: Speci men Type: BLOOD SPECIMENOrdering Facility: Address: [address] [place], [place] [address] Performed By: #### 3 4528-0 ####[facility] LABCLIA [id number] [place] [address] [place] PTT, ANTICOAGULANT THERAPYon 11-17-2021 aPTT Coag (PPP) [Time] 74.7 s High 23.0-32.4 [facility] Comment on above: Order Comment: Speci men Type: BLOOD SPECIMENOrdering Facility: Address: [address] [place] [address] Performed By: #### P TTAC ####[facility] LABCLIA [id number] [place] [address] [place] Renal function 2000 panelon 11-17-2021 Albumin [Mass/Vol] 2.3 g/dL Low 3.9-4.9 [facility] Comment on above: Order Comment: Speci men Type: BLOOD SPECIMENOrdering Facility: Address: [address] [place], [place] [address] Performed By: #### 2 4362-6 ####[facility] LABIA [id number] [place] [address] [place] Anion gap [Moles/Vol] 7 mmol/L Low 9-18 [facility] Comment on above: Order Comment: Speci men Type: BLOOD SPECIMENOrdering Facility: Address: [address] [place], [place] [address] Performed By: #### 2 4362-6 ####[facility] LABIA [id number] [place] [address] [place] Calcium [Mass/Vol] 8.5 mg/dL Normal 8.5-10.2 [facility] Comment on above: Order Comment: Speci men Type: BLOOD SPECIMENOrdering Facility: Address: [address] [place], [place] [address] Performed By: #### 2 4362-6 ####[facility] LABCLIA [id number] [place] [address] [place] Chloride [Moles/Vol] 108 mmol/L High 97-105 [facility] Comment on above: Order Comment: Speci men Type: BLOOD SPECIMENOrdering Facility: Address: [address] [place], [place] [address] Performed By: #### 2 4362-6 ####[facility] LABCLIA [id number] [place] [address] [place] CO2 [Moles/Vol] 25 mmol/L Normal 22-30 [facility] Comment on above: Order Comment: Speci men Type: BLOOD SPECIMENOrdering Facility: Address: [address] [place], [place] [address] Performed By: #### 2 4362-6 ####[facility] LABIA [id number] [place] [address] [place] Creatinine [Mass/Vol] 1.04 mg/dL Normal 0.73-1.22 [facility] Comment on above: Order Comment: Speci men Type: BLOOD SPECIMENOrdering Facility: Address: [address] [place], [place] [address] Performed By: #### 2 4362-6 ####[facility] LABIA [id number] [place] [address] [place] ESTIMATED GLOMERULAR FILTRATION RATE 73 mL/min/1.73m??? Normal >=60 [facility] Comment on above: Order Comment: Speci men Type: BLOOD SPECIMENOrdering Facility: Address: [address] [place], [place] [address] Result Comment: Sandra mated Glomerular Filtration Rate [...] actual GFR. Performed By: #### 2 4362-6 ####[facility] LABCLIA [id number] [address] [address] [place] Glucose [Mass/Vol] 117 mg/dL High 74-99 [facility] Comment on above: Order Comment: Speci men Type: BLOOD SPECIMENOrdering Facility: Address: [address] [place] [address] Result Comment: The [employer] Diabetes Association (ADA) provides guidance for cutoff [...] Standards of Medical Care in Diabetes 2016, [employer]. Diabetes Care. 2016.39(Suppl 1). Performed By: #### 2 4362-6 ####[facility] LABCLIA [id number] [address] [address] [place] Phosphate [Mass/Vol] 3.1 mg/dL Normal 2.7-4.8 [facility] Comment on above: Order Comment: Speci men Type: BLOOD SPECIMENOrdering Facility: Address: [address] [place] [address] Performed By: #### 2 4362-6 ####[facility] LABCLIA [id number] [address] [address] [place] Potassium [Moles/Vol] 4.0 mmol/L Normal 3.7-5.1 [facility] Comment on above: Order Comment: Speci men Type: BLOOD SPECIMENOrdering Facility: Address: [address] [place], [place] [address] Performed By: #### 2 4362-6 ####[facility] LABCLIA [id number] [place] [address] [place] Sodium [Moles/Vol] 140 mmol/L Normal 136-144 [facility] Comment on above: Order Comment: Speci men Type: BLOOD SPECIMENOrdering Facility: Address: [address] [place], [place] [address] Performed By: #### 2 4362-6 ####[facility] LABCLIA [id number] [address] [place] Urea nitrogen [Mass/Vol] 4 mg/dL Low 9-24 [facility] Comment on above: Order Comment: Speci men Type: BLOOD SPECIMENOrdering Facility: Address: [address] [place], [place] [address] Performed By: #### 2 4362-6 ####[facility] LABIA [id number] [place] [address] [place] THERAPY NTon 11-17-2021 THERAPY NT Normal [facility] CBC panel Auto (Bld)on 11-16 Erythrocyte distribution width (RBC) [Ratio] 13.4 % Normal 11.5-15.0 [facility] Comment on above: Order Comment: Speci men Type: BLOOD SPECIMENOrdering Facility: Address: [address] [place], [place] [address] Performed By: #### 5 8410-2 ####[facility] LABCLIA [id number] [address] [place] Hematocrit (Bld) [Volume fraction] 26.7 % Low 39.0-51.0 [facility] Comment on above: Order Comment: Speci men Type: BLOOD SPECIMENOrdering Facility: Address: [address] [place], [place] [address] Performed By: #### 5 8410-2 ####[facility] [id number] [address] [place] Hemoglobin (Bld) [Mass/Vol] 8.8 g/dL Low 13.0-17.0 [facility] Comment on above: Order Comment: Speci men Type: BLOOD SPECIMENOrdering Facility: Address: [address] [place] [address] Performed By: #### 5 8410-2 ####[facility] [id number] [place] [address] [place] MCH (RBC) [Entitic mass] 30.4 pg Normal 26.0-34.0 [facility] Comment on above: Order Comment: Speci men Type: BLOOD SPECIMENOrdering Facility: Address: [address] [place], [place] [address] Performed By: #### 5 8410-2 ####[facility] [id number] [address] [place] MCHC (RBC) [Mass/Vol] 33.0 g/dL Normal 30.5-36.0 [facility] Comment on above: Order Comment: Speci men Type: BLOOD SPECIMENOrdering Facility: Address: [address] [place], [place] [address] Performed By: #### 5 8410-2 ####[facility] [id number] [place] [address] [place] MCV (RBC) [Entitic vol] 92.4 fL Normal 80.0-100.0 [facility] Comment on above: Order Comment: Speci men Type: BLOOD SPECIMENOrdering Facility: Address: [address] [place], [place] [address] Performed By: #### 5 8410-2 ####[facility] LABIA [id number] [place] [address] [place] Nucleated RBC (Bld) [#/Vol] 10*3/uL Normal <0.01 [facility] Comment on above: Order Comment: Speci men Type: BLOOD SPECIMENOrdering Facility: Address: [address] [place], [place] [address] Performed By: #### 5 8410-2 ####[facility] LABIA [id number] [place] [address] [place] Platelet mean volume (Bld) [Entitic vol] 10.1 fL Normal 9.0-12.7 [facility] Comment on above: Order Comment: Speci men Type: BLOOD SPECIMENOrdering Facility: Address: [address] [place] [address] Performed By: #### 5 8410-2 ####[facility] [id number] [place] [address] [place] Platelets (Bld) [#/Vol] 261 10*3/uL Normal 150-400 [facility] Comment on above: Order Comment: Speci men Type: BLOOD SPECIMENOrdering Facility: Address: [address] [place], [place] [address] Performed By: #### 5 8410-2 ####[facility] LABIA [id number] [place] [address] [place] RBC (Bld) [#/Vol] 2.89 10*6/uL Low 4.20-6.00 [facility] Comment on above: Order Comment: Speci men Type: BLOOD SPECIMENOrdering Facility: Address: [address] [place], [place] [address] Performed By: #### 5 8410-2 ####[facility] [id number] [place] [address] [place] WBC (Bld) [#/Vol] 9.81 10*3/uL Normal 3.70-11.00 [facility] Comment on above: Order Comment: Speci men Type: BLOOD SPECIMENOrdering Facility: Address: [address] [place] [address] Performed By: #### 5 8410-2 ####[facility] LABCLIA [id number] [place] [address] [place] PTT, ANTICOAGULANT THERAPYon 11-16-2021 aPTT Coag (PPP) [Time] 33.9 s High 23.0-32.4 [facility] Comment on above: Order Comment: Speci men Type: BLOOD SPECIMENOrdering Facility: Address: [address] [place] [address] Performed By: #### P TTAC ####[facility] LABCLIA [id number] [address] [place] aPTT Coag (PPP) [Time] 63.8 s High 23.0-32.4 [facility] Comment on above: Order Comment: Speci men Type: BLOOD SPECIMENOrdering Facility: Address: [address] [place] [address] Performed By: #### P TTAC ####[facility] LABIA [id number] [place] [address] [place] Renal function 2000 panelon 11-16-2021 Albumin [Mass/Vol] 2.3 g/dL Low 3.9-4.9 [facility] Comment on above: Order Comment: Speci men Type: BLOOD SPECIMENOrdering Facility: Address: [address] [place], [place] [address] Performed By: #### 2 4362-6 ####[facility] LABIA [id number] [place] [address] [place] Anion gap [Moles/Vol] 10 mmol/L Normal 9-18 [facility] Comment on above: Order Comment: Speci men Type: BLOOD SPECIMENOrdering Facility: Address: [address] [place] [address] Performed By: #### 2 4362-6 ####[facility] LABCLIA [id number] [facility] [place] [address] [place] Calcium [Mass/Vol] 8.7 mg/dL Normal 8.5-10.2 [facility] Comment on above: Order Comment: Speci men Type: BLOOD SPECIMENOrdering Facility: Address: [address] [place], [place] [address] Performed By: #### 2 4362-6 ####[facility] LABCLIA [id number] [place] [address] [place] Chloride [Moles/Vol] 109 mmol/L High 97-105 [facility] Comment on above: Order Comment: Speci men Type: BLOOD SPECIMENOrdering Facility: Address: [address] [place] [address] Performed By: #### 2 4362-6 ####[facility] LABCLIA [id number] [facility] [place] [address] [place] CO2 [Moles/Vol] 23 mmol/L Normal 22-30 [facility] Comment on above: Order Comment: Speci men Type: BLOOD SPECIMENOrdering Facility: Address: [address] [place] [address] Performed By: #### 2 4362-6 ####[facility] LABCLIA [id number] [place] [address] [place] Creatinine [Mass/Vol] 1.00 mg/dL Normal 0.73-1.22 [facility] Comment on above: Order Comment: Speci men Type: BLOOD SPECIMENOrdering Facility: Address: [address] [place] [address] Performed By: #### 2 4362-6 ####[facility] LABCLIA [id number] [address] OF [facility] ESTIMATED GLOMERULAR FILTRATION RATE 77 mL/min/1.73m??? Normal >=60 [facility] Comment on above: Order Comment: Misbah padilla Type: BLOOD SPECIMENOrdering Facility: Address: [address] [place] [address] Result Comment: Sandra mated Glomerular Filtration Rate [...] actual GFR. Performed By: #### 2 4362-6 ####[facility] LABIA [id number] [place] [address] [place] Glucose [Mass/Vol] 107 mg/dL High 74-99 [facility] Comment on above: Order Comment: Misbah padilla Type: BLOOD SPECIMENOrdering Facility: Address: [address] [place] [address] Result Comment: The [place] Diabetes Association (ADA) provides guidance for cutoff [...] Standards of Medical Care in Diabetes 2016, [place] Diabetes Association. Diabetes Care. 2016.39(Suppl 1). Performed By: #### 2 4362-6 ####[facility] LABCLIA [id number] [place] [address] [place] Phosphate [Mass/Vol] 3.1 mg/dL Normal 2.7-4.8 [facility] Comment on above: Order Comment: Speci men Type: BLOOD SPECIMENOrdering Facility: Address: [address] [place] [address] Performed By: #### 2 4362-6 ####[facility] LABCLIA [id number] [place] [address] [place] Potassium [Moles/Vol] 4.0 mmol/L Normal 3.7-5.1 [facility] Comment on above: Order Comment: Speci men Type: BLOOD SPECIMENOrdering Facility: Address: [address] [place] [address] Performed By: #### 2 4362-6 ####[facility] LABCLIA [id number] [place] [address] [place] Sodium [Moles/Vol] 142 mmol/L Normal 136-144 [facility] Comment on above: Order Comment: Speci men Type: BLOOD SPECIMENOrdering Facility: Address: [address] [place] [address] Performed By: #### 2 4362-6 ####[facility] LABCLIA [id number] [place] [address] [place] Urea nitrogen [Mass/Vol] 3 mg/dL Low 9-24 [facility] Comment on above: Order Comment: Speci men Type: BLOOD SPECIMENOrdering Facility: Address: [address] [place], [place] [address] Performed By: #### 2 4362-6 ####[facility] LABCLIA [id number] [place] [address] [place] CBC panel Auto (Bld)on 11-15 Erythrocyte distribution width (RBC) [Ratio] 13.3 % Normal 11.5-15.0 [facility] Comment on above: Order Comment: Speci men Type: BLOOD SPECIMENOrdering Facility: Address: [address] [place], [place] [address] Performed By: #### 5 8410-2 ####[facility] LABCLIA [id number] [address] [place] Hematocrit (Bld) [Volume fraction] 29.2 % Low 39.0-51.0 [facility] Comment on above: Order Comment: Speci men Type: BLOOD SPECIMENOrdering Facility: Address: [address] [place], [place] [address] Performed By: #### 5 8410-2 ####[facility] LABIA [id number] [address] [place] Hemoglobin (Bld) [Mass/Vol] 9.4 g/dL Low 13.0-17.0 [facility] Comment on above: Order Comment: Speci men Type: BLOOD SPECIMENOrdering Facility: Address: [address] [place], [place] [address] Performed By: #### 5 8410-2 ####[facility] LABIA [id number] [address] [place] MCH (RBC) [Entitic mass] 30.3 pg Normal 26.0-34.0 [facility] Comment on above: Order Comment: Speci men Type: BLOOD SPECIMENOrdering Facility: Address: [address] [place], [place] [address] Performed By: #### 5 8410-2 ####[facility] LABIA [id number] [address] [place] MCHC (RBC) [Mass/Vol] 32.2 g/dL Normal 30.5-36.0 [facility] Comment on above: Order Comment: Speci men Type: BLOOD SPECIMENOrdering Facility: Address: [address] [place] [address] Performed By: #### 5 8410-2 ####[facility] LABCLIA [id number] [address] MCV (RBC) [Entitic vol] 94.2 fL Normal 80.0-100.0 [facility] Comment on above: Order Comment: Speci men Type: BLOOD SPECIMENOrdering Facility: Address: [address] [place], [place] [address] Performed By: #### 5 8410-2 ####[facility] LABIA [id number] [place] [address] [place] Nucleated RBC (Bld) [#/Vol] 10*3/uL Normal <0.01 [facility] Comment on above: Order Comment: Speci men Type: BLOOD SPECIMENOrdering Facility: Address: [address] [place] [address] Performed By: #### 5 8410-2 ####[facility] LABIA [id number] [place] [address] [place] Platelet mean volume (Bld) [Entitic vol] 10.0 fL Normal 9.0-12.7 [facility] Comment on above: Order Comment: Speci men Type: BLOOD SPECIMENOrdering Facility: Address: [address] [place] [address] Performed By: #### 5 8410-2 ####[facility] LABCLIA [id number] [place] [address] [place] Platelets (Bld) [#/Vol] 336 10*3/uL Normal 150-400 [facility] Comment on above: Order Comment: Speci men Type: BLOOD SPECIMENOrdering Facility: Address: [address] [place], [place] [address] Performed By: #### 5 8410-2 ####[facility] LABCLIA [id number] [place] [address] [place] RBC (Bld) [#/Vol] 3.10 10*6/uL Low 4.20-6.00 [facility] Comment on above: Order Comment: Speci men Type: BLOOD SPECIMENOrdering Facility: Address: [address] [place], [place] [address] Performed By: #### 5 8410-2 ####[facility] LABIA [id number] [place] [address] [place] WBC (Bld) [#/Vol] 9.78 10*3/uL Normal 3.70-11.00 [facility] Comment on above: Order Comment: Speci men Type: BLOOD SPECIMENOrdering Facility: Address: [address] [place], [place] [address] Performed By: #### 5 8410-2 ####[facility] LABIA [id number] [place] [address] [place] PT EDon 11-15-2021 PT ED Normal [facility] PTT, ANTICOAGULANT THERAPYon 11-15-2021 aPTT Coag (PPP) [Time] 45.7 s High 23.0-32.4 [facility] Comment on above: Order Comment: Speci men Type: BLOOD SPECIMENOrdering Facility: Address: [address] [place] [address] Performed By: #### P TTAC ####[facility] LABIA [id number] [place] [address] [place] aPTT Coag (PPP) [Time] 73.7 s High 23.0-32.4 [facility] Comment on above: Order Comment: Speci men Type: BLOOD SPECIMENOrdering Facility: Address: [address] [place], [place] [address] Performed By: #### P TTAC ####[facility] LABCLIA [id number] [place] [address] [place] aPTT Coag (PPP) [Time] 43.4 s High 23.0-32.4 [facility] Comment on above: Order Comment: Speci men Type: BLOOD SPECIMENOrdering Facility: Address: [address] [place] [address] Performed By: #### P TTA ####[facility] LABIA [id number] [place] [address] [place] Renal function 2000 panelon 11-15-2021 Albumin [Mass/Vol] 2.5 g/dL Low 3.9-4.9 [facility] Comment on above: Order Comment: Speci men Type: BLOOD SPECIMENOrdering Facility: Address: [address] [place] [address] Performed By: #### 2 4362-6 ####[facility] [id number] [place] [address] [place] Anion gap [Moles/Vol] 11 mmol/L Normal 9-18 [facility] Comment on above: Order Comment: Speci men Type: BLOOD SPECIMENOrdering Facility: Address: [address] [place] [address] Performed By: #### 2 4362-6 ####[facility] LABIA [id number] [place] [address] [place] Calcium [Mass/Vol] 8.7 mg/dL Normal 8.5-10.2 [facility] Comment on above: Order Comment: Speci men Type: BLOOD SPECIMENOrdering Facility: Address: [address] [place], [place] [address] Performed By: #### 2 4362-6 ####[facility] LABIA [id number] [place] [address] [place] Chloride [Moles/Vol] 110 mmol/L High 97-105 [facility] Comment on above: Order Comment: Speci men Type: BLOOD SPECIMENOrdering Facility: Address: [address] [place] [address] Performed By: #### 2 4362-6 ####[facility] LABCLIA [id number] [place] [address] [place] CO2 [Moles/Vol] 22 mmol/L Normal 22-30 [facility] Comment on above: Order Comment: Speci men Type: BLOOD SPECIMENOrdering Facility: Address: [address] [place], [place] [address] Performed By: #### 2 4362-6 ####[facility] LABCLIA [id number] [address] STATES OF [facility] Creatinine [Mass/Vol] 0.97 mg/dL Normal 0.73-1.22 [facility] Comment on above: Order Comment: Speci men Type: BLOOD SPECIMENOrdering Facility: Address: [address] [place], [place] [address] Performed By: #### 2 4362-6 ####[facility] LABCLIA [id number] [address] [place] ESTIMATED GLOMERULAR FILTRATION RATE 79 mL/min/1.73m??? Normal >=60 [facility] Comment on above: Order Comment: Speci men Type: BLOOD SPECIMENOrdering Facility: Address: [address] [place], [place] [address] Result Comment: Sandra mated Glomerular Filtration Rate [...] actual GFR. Performed By: #### 2 4362-6 ####[facility] LABCLIA [id number] [place] [address] [place] Glucose [Mass/Vol] 121 mg/dL High 74-99 [facility] Comment on above: Order Comment: Speci men Type: BLOOD SPECIMENOrdering Facility: Address: [address] [place] [address] Result Comment: The [place] Diabetes Association (ADA) provides guidance for cutoff [...] Standards of Medical Care in Diabetes 2016, [place] [employer]. Diabetes Care. 2016.39(Suppl 1). Performed By: #### 2 4362-6 ####[facility] LABCLIA [id number] [place] [address] [place] Phosphate [Mass/Vol] 2.5 mg/dL Low 2.7-4.8 [facility] Comment on above: Order Comment: Speci men Type: BLOOD SPECIMENOrdering Facility: Address: [address] [place], [place] [address] Performed By: #### 2 4362-6 ####[facility] LABIA [id number] [place] [address] [place] Potassium [Moles/Vol] 3.1 mmol/L Low 3.7-5.1 [facility] Comment on above: Order Comment: Speci men Type: BLOOD SPECIMENOrdering Facility: Address: [address] [place] [address] Performed By: #### 2 4362-6 ####[facility] LABCLIA [id number] [place] [address] [place] Sodium [Moles/Vol] 143 mmol/L Normal 136-144 [facility] Comment on above: Order Comment: Speci men Type: BLOOD SPECIMENOrdering Facility: Address: [address] [place] [address] Performed By: #### 2 4362-6 ####[facility] LABCLIA [id number] [place] [address] [place] Urea nitrogen [Mass/Vol] 4 mg/dL Low 9-24 [facility] Comment on above: Order Comment: Speci men Type: BLOOD SPECIMENOrdering Facility: Address: [address] [place] [address] Performed By: #### 2 4362-6 ####[facility] LABCLIA [id number] [place] [address] [place] TYPE + SCREENon 11-15-2021 ABO O Normal [facility] Comment on above: Order Comment: Speci men Type: BLOOD SPECIMENOrdering Facility: Address: [address] [place] [address] Performed By: #### T SCR ####[facility] BLOOD BANKCLIA [id number] [place] [address] [place] HISTORICAL AB SCR STATUS Negative Normal [facility] Comment on above: Order Comment: Speci men Type: BLOOD SPECIMENOrdering Facility: Address: [address] [place], [place] [address] Performed By: #### T SCR ####[facility] BLOOD BANKIA [id number] [place] [address] [place] Rh Nom (Bld) Positive Normal [facility] Comment on above: Order Comment: Speci men Type: BLOOD SPECIMENOrdering Facility: Address: [address] [place], [place] [address] Performed By: #### T SCR ####[facility] BLOOD BANKCLIA [id number] [place] [id number] [place] TYPE AND SCREEN EXPIRATION 11/18/2021 23:59 Normal [facility] Comment on above: Order Comment: Speci men Type: BLOOD SPECIMENOrdering Facility: Address: [address] [place] [address] Performed By: #### T SCR ####[facility] BLOOD BANKCLIA [id number] [place] [id number] [place] Basic metabolic 2000 panelon 11-14-2021 Anion gap [Moles/Vol] 8 mmol/L Low 9-18 [facility] Comment on above: Order Comment: Speci men Type: BLOOD SPECIMENOrdering Facility: Address: [address] [place] [address] Performed By: #### 2 4321-2 ####[facility] LABCLIA [id number] [place] [address] [place] Calcium [Mass/Vol] 8.8 mg/dL Normal 8.5-10.2 [facility] Comment on above: Order Comment: Speci men Type: BLOOD SPECIMENOrdering Facility: Address: [address] [place], [place] [address] Performed By: #### 2 4321-2 ####[facility] LABCLIA [id number] [place] [address] [place] Chloride [Moles/Vol] 110 mmol/L High 97-105 [facility] Comment on above: Order Comment: Speci men Type: BLOOD SPECIMENOrdering Facility: Address: [address] [place], [place] [address] Performed By: #### 2 4321-2 ####[facility] LABCLIA [id number] [place] [address] [place] CO2 [Moles/Vol] 24 mmol/L Normal 22-30 [facility] Comment on above: Order Comment: Speci men Type: BLOOD SPECIMENOrdering Facility: Address: [address] [place] [address] Performed By: #### 2 4321-2 ####[facility] LABCLIA [id number] [place] [address] [place] Creatinine [Mass/Vol] 0.96 mg/dL Normal 0.73-1.22 [facility] Comment on above: Order Comment: Speci men Type: BLOOD SPECIMENOrdering Facility: Address: [address] [place] [address] Performed By: #### 2 4321-2 ####[facility] LABIA [id number] [place] [address] [place] ESTIMATED GLOMERULAR FILTRATION RATE 80 mL/min/1.73m??? Normal >=60 [facility] Comment on above: Order Comment: Speci men Type: BLOOD SPECIMENOrdering Facility: Address: [address] [place] [address] Result Comment: Sandra [...] actual GFR. Performed By: #### 2 4321-2 ####[facility] LABIA [id number] [facility] [address] [place] Glucose [Mass/Vol] 113 mg/dL High 74-99 [facility] Comment on above: Order Comment: Speci men Type: BLOOD SPECIMENOrdering Facility: Address: [address] [place] [address] Result Comment: The [place] Diabetes Association (ADA) provides guidance for cutoff [...] Standards of Medical Care in Diabetes 2016, [place] Diabetes Association. Diabetes Care. 2016.39(Suppl 1). Performed By: #### 2 4321-2 ####[facility] LABCLIA [id number] [place] [address] [place] Potassium [Moles/Vol] 3.0 mmol/L Low 3.7-5.1 [facility] Comment on above: Order Comment: Speci men Type: BLOOD SPECIMENOrdering Facility: Address: [address] [place] [address] Performed By: #### 2 4321-2 ####[facility] LABIA [id number] [place] [address] [place] Sodium [Moles/Vol] 142 mmol/L Normal 136-144 [facility] Comment on above: Order Comment: Speci men Type: BLOOD SPECIMENOrdering Facility: Address: [address] [place] [address] Performed By: #### 2 4321-2 ####[facility] LABCLIA [id number] [place] [address] [place] Urea nitrogen [Mass/Vol] 3 mg/dL Low 9-24 [facility] Comment on above: Order Comment: Speci men Type: BLOOD SPECIMENOrdering Facility: Address: [address] [place] [address] Performed By: #### 2 4321-2 ####[facility] LABCLIA [id number] [place] [address] [place] CASE MANAGEMon 11-14-2021 CASE MANAGEM Normal [facility] CBC panel Auto (Bld)on 11-14 Erythrocyte distribution width (RBC) [Ratio] 13.3 % Normal 11.5-15.0 [facility] Comment on above: Order Comment: Speci men Type: BLOOD SPECIMENOrdering Facility: Address: [address] [place], [place] [address] Performed By: #### 5 8410-2 ####[facility] [id number] [place] [address] [place] Hematocrit (Bld) [Volume fraction] 29.7 % Low 39.0-51.0 [facility] Comment on above: Order Comment: Speci men Type: BLOOD SPECIMENOrdering Facility: Address: [address] [place], [place] [address] Performed By: #### 5 8410-2 ####[facility] [id number] [place] [address] [place] Hemoglobin (Bld) [Mass/Vol] 9.4 g/dL Low 13.0-17.0 [facility] Comment on above: Order Comment: Speci men Type: BLOOD SPECIMENOrdering Facility: Address: [address] [place], [place] [address] Performed By: #### 5 8410-2 ####[facility] LABIA [id number] [place] [address] [place] MCH (RBC) [Entitic mass] 30.2 pg Normal 26.0-34.0 [facility] Comment on above: Order Comment: Speci men Type: BLOOD SPECIMENOrdering Facility: Address: [address] [place], [place] [address] Performed By: #### 5 8410-2 ####[facility] LABIA [id number] [address] [place] MCHC (RBC) [Mass/Vol] 31.6 g/dL Normal 30.5-36.0 [facility] Comment on above: Order Comment: Speci men Type: BLOOD SPECIMENOrdering Facility: Address: [address] [place], [place] [address] Performed By: #### 5 8410-2 ####[facility] LABIA [id number] [place] [address] [place] MCV (RBC) [Entitic vol] 95.5 fL Normal 80.0-100.0 [facility] Comment on above: Order Comment: Speci men Type: BLOOD SPECIMENOrdering Facility: Address: [address] [place], [place] [address] Performed By: #### 5 8410-2 ####[facility] LABIA [id number] [place] [address] [place] Nucleated RBC (Bld) [#/Vol] 10*3/uL Normal <0.01 [facility] Comment on above: Order Comment: Speci men Type: BLOOD SPECIMENOrdering Facility: Address: [address] [place], [place] [address] Performed By: #### 5 8410-2 ####[facility] LABIA [id number] [place] [address] [place] Platelet mean volume (Bld) [Entitic vol] 9.6 fL Normal 9.0-12.7 [facility] Comment on above: Order Comment: Speci men Type: BLOOD SPECIMENOrdering Facility: Address: [address] [place], [place] [address] Performed By: #### 5 8410-2 ####[facility] LABCLIA [id number] [place] [address] [place] Platelets (Bld) [#/Vol] 308 10*3/uL Normal 150-400 [facility] Comment on above: Order Comment: Speci men Type: BLOOD SPECIMENOrdering Facility: Address: [address] [place], [place] [address] Performed By: #### 5 8410-2 ####[facility] LABCLIA [id number] [place] [address] [place] RBC (Bld) [#/Vol] 3.11 10*6/uL Low 4.20-6.00 [facility] Comment on above: Order Comment: Speci men Type: BLOOD SPECIMENOrdering Facility: Address: [address] [place], [place] [address] Performed By: #### 5 8410-2 ####[facility] LABCLIA [id number] [place] [address] [place] WBC (Bld) [#/Vol] 9.48 10*3/uL Normal 3.70-11.00 [facility] Comment on above: Order Comment: Speci men Type: BLOOD SPECIMENOrdering Facility: Address: [address] [place], [place] [address] Performed By: #### 5 8410-2 ####[facility] LABIA [id number] [place] [address] [place] NURSING PROGon 11-14-2021 NURSING PROG Normal [facility] NUTRITIONon 11-14-2021 NUTRITION Normal [facility] PTT, ANTICOAGULANT THERAPYon 11-14-2021 aPTT Coag (PPP) [Time] 49.0 s High 23.0-32.4 [facility] Comment on above: Order Comment: Speci men Type: BLOOD SPECIMENOrdering Facility: Address: [address] [place], [place] [address] Performed By: #### P TTAC ####[facility] LABCLIA [id number] [place] [address] [place] Renal function 2000 panelon 11-14-2021 Albumin [Mass/Vol] 2.1 g/dL Low 3.9-4.9 [facility] Comment on above: Order Comment: Speci men Type: BLOOD SPECIMENOrdering Facility: Address: [address] [place], [place] [address] Performed By: #### 2 4362-6 ####[facility] LABCLIA [id number] [place] [address] [place] Anion gap [Moles/Vol] 10 mmol/L Normal 9-18 [facility] Comment on above: Order Comment: Speci men Type: BLOOD SPECIMENOrdering Facility: Address: [address] [place], [place] [address] Performed By: #### 2 4362-6 ####[facility] LABCLIA [id number] [place] [address] [place] Calcium [Mass/Vol] 8.3 mg/dL Low 8.5-10.2 [facility] Comment on above: Order Comment: Speci men Type: BLOOD SPECIMENOrdering Facility: Address: [address] [place], [place] [address] Performed By: #### 2 4362-6 ####[facility] LABCLIA [id number] [place] [address] [place] Chloride [Moles/Vol] 111 mmol/L High 97-105 [facility] Comment on above: Order Comment: Speci men Type: BLOOD SPECIMENOrdering Facility: Address: [address] [place], [place] [address] Performed By: #### 2 4362-6 ####[facility] LABCLIA [id number] [place] [address] [place] CO2 [Moles/Vol] 21 mmol/L Low 22-30 [facility] Comment on above: Order Comment: Speci men Type: BLOOD SPECIMENOrdering Facility: Address: [address] [place] [id number] Performed By: #### 2 4362-6 ####[facility] [id number] [address] [place] [facility] Creatinine [Mass/Vol] 0.91 mg/dL Normal 0.73-1.22 [facility] Comment on above: Order Comment: Speci men Type: BLOOD SPECIMENOrdering Facility: Address: [address] [place] [address] Performed By: #### 2 4362-6 ####[facility] LABIA [id number] [address] OF [facility] ESTIMATED GLOMERULAR FILTRATION RATE 86 mL/min/1.73m??? Normal >=60 [facility] Comment on above: Order Comment: [place] men Type: BLOOD SPECIMENOrdering Facility: Address: [address] [place] [address] Result Comment: Sandra mated Glomerular Filtration Rate [...] actual GFR. Performed By: #### 2 4362-6 ####[facility] LABIA [id number] [address] [place] Glucose [Mass/Vol] 97 mg/dL Normal 74-99 [facility] Comment on above: Order Comment: Speci men Type: BLOOD SPECIMENOrdering Facility: Address: [address] [place] [address] Result Comment: The [place] Diabetes Association (ADA) provides guidance for cutoff [...] Standards of Medical Care in Diabetes 2016, [place] Diabetes Association. Diabetes Care. 2016.39(Suppl 1). Performed By: #### 2 4362-6 ####[facility] LABCLIA [id number] [place] [address] [place] Phosphate [Mass/Vol] 2.3 mg/dL Low 2.7-4.8 [facility] Comment on above: Order Comment: Speci men Type: BLOOD SPECIMENOrdering Facility: Address: [address] [place] [address] Performed By: #### 2 4362-6 ####[facility] LABIA [id number] [place] [address] [place] Potassium [Moles/Vol] 3.0 mmol/L Low 3.7-5.1 [facility] Comment on above: Order Comment: Speci men Type: BLOOD SPECIMENOrdering Facility: Address: [address] [place] [address] Performed By: #### 2 4362-6 ####[facility] LABIA [id number] [place] [address] [place] Sodium [Moles/Vol] 142 mmol/L Normal 136-144 [facility] Comment on above: Order Comment: Speci men Type: BLOOD SPECIMENOrdering Facility: Address: [address] [place], [place] [address] Performed By: #### 2 4362-6 ####[facility] LABCLIA [id number] [place] [address] [place] Urea nitrogen [Mass/Vol] 3 mg/dL Low 9-24 [facility] Comment on above: Order Comment: Speci men Type: BLOOD SPECIMENOrdering Facility: Address: [address] [place] [address] Performed By: #### 2 4362-6 ####[facility] LABCLIA [id number] [place] [address] [place] CBC panel Auto (Bld)on 11-13 Erythrocyte distribution width (RBC) [Ratio] 13.5 % Normal 11.5-15.0 [facility] Comment on above: Order Comment: Speci men Type: BLOOD SPECIMENOrdering Facility: Address: [address] [place] [address] Performed By: #### 5 8410-2 ####[facility] LABIA [id number] [place] [address] [place] Hematocrit (Bld) [Volume fraction] 27.3 % Low 39.0-51.0 [facility] Comment on above: Order Comment: Speci men Type: BLOOD SPECIMENOrdering Facility: Address: [address] [place] [address] Performed By: #### 5 8410-2 ####[facility] LABIA [id number] [place] [address] [place] Hemoglobin (Bld) [Mass/Vol] 8.8 g/dL Low 13.0-17.0 [facility] Comment on above: Order Comment: Speci men Type: BLOOD SPECIMENOrdering Facility: Address: [address] [place] [address] Performed By: #### 5 8410-2 ####[facility] LABIA [id number] [place] [address] [place] MCH (RBC) [Entitic mass] 30.6 pg Normal 26.0-34.0 [facility] Comment on above: Order Comment: Speci men Type: BLOOD SPECIMENOrdering Facility: Address: [address] [place], [place] [address] Performed By: #### 5 8410-2 ####[facility] LABIA [id number] [address] MCHC (RBC) [Mass/Vol] 32.2 g/dL Normal 30.5-36.0 [facility] Comment on above: Order Comment: Speci men Type: BLOOD SPECIMENOrdering Facility: Address: [address] [place], [place] [address] Performed By: #### 5 8410-2 ####[facility] LABIA [id number] [place] [address] [place] MCV (RBC) [Entitic vol] 94.8 fL Normal 80.0-100.0 [facility] Comment on above: Order Comment: Speci men Type: BLOOD SPECIMENOrdering Facility: Address: [address] [place], [place] [address] Performed By: #### 5 8410-2 ####[facility] [id number] [place] [address] [place] Nucleated RBC (Bld) [#/Vol] 10*3/uL Normal <0.01 [facility] Comment on above: Order Comment: Speci men Type: BLOOD SPECIMENOrdering Facility: Address: [address] [place] [address] Performed By: #### 5 8410-2 ####[facility] LABIA [id number] [place] [address] [place] Platelet mean volume (Bld) [Entitic vol] 9.7 fL Normal 9.0-12.7 [facility] Comment on above: Order Comment: Speci men Type: BLOOD SPECIMENOrdering Facility: Address: [address] [place], [place] [address] Performed By: #### 5 8410-2 ####[facility] LABCLIA [id number] [place] [address] [place] Platelets (Bld) [#/Vol] 309 10*3/uL Normal 150-400 [facility] Comment on above: Order Comment: Speci men Type: BLOOD SPECIMENOrdering Facility: Address: [address] [place], [place] [address] Performed By: #### 5 8410-2 ####[facility] LABIA [id number] [place] [address] [place] RBC (Bld) [#/Vol] 2.88 10*6/uL Low 4.20-6.00 [facility] Comment on above: Order Comment: Speci men Type: BLOOD SPECIMENOrdering Facility: Address: [address] [place], [place] [address] Performed By: #### 5 8410-2 ####[facility] LABIA [id number] [place] [address] [place] WBC (Bld) [#/Vol] 10.12 10*3/uL Normal 3.70-11.00 [facility] Comment on above: Order Comment: Speci men Type: BLOOD SPECIMENOrdering Facility: Address: [address] [place], [place] [address] Performed By: #### 5 8410-2 ####[facility] [id number] [place] [address] [place] NURSING PROGon 11-13-2021 NURSING PROG Normal [facility] NURSING PROG Normal [facility] PTT, ANTICOAGULANT THERAPYon 11-13-2021 aPTT Coag (PPP) [Time] 61.2 s High 23.0-32.4 [facility] Comment on above: Order Comment: Speci men Type: BLOOD SPECIMENOrdering Facility: Address: [address] [place], [place] [address] Performed By: #### P TTAC ####[facility] LABCLIA [id number] [place] [address] [place] aPTT Coag (PPP) [Time] 63.9 s High 23.0-32.4 [facility] Comment on above: Order Comment: Speci men Type: BLOOD SPECIMENOrdering Facility: Address: [address] [place], [place] [address] Performed By: #### P TTAC ####[facility] LABCLIA [id number] [place] [address] [place] aPTT Coag (PPP) [Time] 43.6 s High 23.0-32.4 [facility] Comment on above: Order Comment: Speci men Type: BLOOD SPECIMENOrdering Facility: Address: [address] [place], [place] [address] Performed By: #### P TTAC ####[facility] LABIA [id number] [address] [place] aPTT Coag (PPP) [Time] 61.4 s High 23.0-32.4 [facility] Comment on above: Order Comment: Speci men Type: BLOOD SPECIMENOrdering Facility: Address: [address] [place], [place] [address] Performed By: #### P TTAC ####[facility] LABCLIA [id number] [place] [address] [place] Renal function 2000 panelon 11-13-2021 Albumin [Mass/Vol] 2.3 g/dL Low 3.9-4.9 [facility] Comment on above: Order Comment: Speci men Type: BLOOD SPECIMENOrdering Facility: Address: [address] [place], [place] [address] Performed By: #### 2 4362-6 ####[facility] LABCLIA [id number] [place] [address] [place] Anion gap [Moles/Vol] 9 mmol/L Normal 9-18 [facility] Comment on above: Order Comment: Speci men Type: BLOOD SPECIMENOrdering Facility: Address: [address] [place] [address] Performed By: #### 2 4362-6 ####[facility] LABCLIA [id number] [place] [address] [place] Calcium [Mass/Vol] 8.3 mg/dL Low 8.5-10.2 [facility] Comment on above: Order Comment: Speci men Type: BLOOD SPECIMENOrdering Facility: Address: [address] [place], [place] [address] Performed By: #### 2 4362-6 ####[facility] LABCLIA [id number] [place] [address] [place] Chloride [Moles/Vol] 113 mmol/L High 97-105 [facility] Comment on above: Order Comment: Speci men Type: BLOOD SPECIMENOrdering Facility: Address: [address] [place] [address] Performed By: #### 2 4362-6 ####[facility] LABCLIA [id number] [place] [address] [place] CO2 [Moles/Vol] 21 mmol/L Low 22-30 [facility] Comment on above: Order Comment: Speci men Type: BLOOD SPECIMENOrdering Facility: Address: [address] [place] [address] Performed By: #### 2 4362-6 ####[facility] LABCLIA [id number] [place] [address] [place] Creatinine [Mass/Vol] 1.01 mg/dL Normal 0.73-1.22 [facility] Comment on above: Order Comment: Speci men Type: BLOOD SPECIMENOrdering Facility: Address: [address] [place] [address] Performed By: #### 2 4362-6 ####[facility] LABIA [id number] [address] [place] ESTIMATED GLOMERULAR FILTRATION RATE 76 mL/min/1.73m??? Normal >=60 [facility] Comment on above: Order Comment: Misbah padilla Type: BLOOD SPECIMENOrdering Facility: Address: [address] [place] [address] Result Comment: Sandra [...] actual GFR. Performed By: #### 2 4362-6 ####[facility] LABIA [id number] [place] [address] [place] Glucose [Mass/Vol] 123 mg/dL High 74-99 [facility] Comment on above: Order Comment: Misbah padilla Type: BLOOD SPECIMENOrdering Facility: Address: [address] [place] [address] Result Comment: The [place] Diabetes Association (ADA) provides guidance for cutoff [...] Standards of Medical Care in Diabetes 2016, [place] Diabetes [employer]. Diabetes Care. 2016.39(Suppl 1). Performed By: #### 2 4362-6 ####[facility] LABCLIA [id number] [place] [address] [place] Phosphate [Mass/Vol] 2.9 mg/dL Normal 2.7-4.8 [facility] Comment on above: Order Comment: Speci men Type: BLOOD SPECIMENOrdering Facility: Address: [address] [place], [place] [address] Performed By: #### 2 4362-6 ####[facility] LABCLIA [id number] [place] [address] [place] Potassium [Moles/Vol] 3.2 mmol/L Low 3.7-5.1 [facility] Comment on above: Order Comment: Speci men Type: BLOOD SPECIMENOrdering Facility: Address: [address] [place], [place] [address] Performed By: #### 2 4362-6 ####[facility] LABIA [id number] [place] [address] [place] Sodium [Moles/Vol] 143 mmol/L Normal 136-144 [facility] Comment on above: Order Comment: Speci men Type: BLOOD SPECIMENOrdering Facility: Address: [address] [address] [place], [place] [address] Performed By: #### 2 4362-6 ####[facility] LABCLIA [id number] [place] [address] [place] Urea nitrogen [Mass/Vol] 5 mg/dL Low 9-24 [facility] Comment on above: Order Comment: Speci men Type: BLOOD SPECIMENOrdering Facility: Address: [address] [place] [address] Performed By: #### 2 4362-6 ####[facility] LABCLIA [id number] [place] [id number] [place] CASE MANAGEMon 11-12-2021 CASE MANAGEM Normal [facility] CBC panel Auto (Bld)on 11-12 Erythrocyte distribution width (RBC) [Ratio] 13.8 % Normal 11.5-15.0 [facility] Comment on above: Order Comment: Speci men Type: BLOOD SPECIMENOrdering Facility: Address: [address] [place] [address] Performed By: #### 5 8410-2 ####[facility] LABIA [id number] [address] OF [facility] Hematocrit (Bld) [Volume fraction] 27.9 % Low 39.0-51.0 [facility] Comment on above: Order Comment: Speci men Type: BLOOD SPECIMENOrdering Facility: Address: [address] [place] [address] Performed By: #### 5 8410-2 ####[facility] LABIA [id number] [address] OF [facility] Hemoglobin (Bld) [Mass/Vol] 8.9 g/dL Low 13.0-17.0 [facility] Comment on above: Order Comment: Speci men Type: BLOOD SPECIMENOrdering Facility: Address: [address] [place] [address] Performed By: #### 5 8410-2 ####[facility] LABIA [id number] [place] [address] [place] MCH (RBC) [Entitic mass] 30.1 pg Normal 26.0-34.0 [facility] Comment on above: Order Comment: Speci men Type: BLOOD SPECIMENOrdering Facility: Address: [address] [place], [place] [address] Performed By: #### 5 8410-2 ####[facility] LABCLIA [id number] [address] [place] MCHC (RBC) [Mass/Vol] 31.9 g/dL Normal 30.5-36.0 [facility] Comment on above: Order Comment: Speci men Type: BLOOD SPECIMENOrdering Facility: Address: [address] [place] [address] Performed By: #### 5 8410-2 ####[facility] LABIA [id number] [address] [place] MCV (RBC) [Entitic vol] 94.3 fL Normal 80.0-100.0 [facility] Comment on above: Order Comment: Speci men Type: BLOOD SPECIMENOrdering Facility: Address: [address] [place], [place] [address] Performed By: #### 5 8410-2 ####[facility] LABIA [id number] [place] [address] [place] Nucleated RBC (Bld) [#/Vol] 10*3/uL Normal <0.01 [facility] Comment on above: Order Comment: Speci men Type: BLOOD SPECIMENOrdering Facility: Address: [address] [place], [place] [address] Performed By: #### 5 8410-2 ####[facility] LABIA [id number] [place] [address] [place] Platelet mean volume (Bld) [Entitic vol] 9.5 fL Normal 9.0-12.7 [facility] Comment on above: Order Comment: Speci men Type: BLOOD SPECIMENOrdering Facility: Address: [address] [place] [address] Performed By: #### 5 8410-2 ####[facility] LABCLIA [id number] [place] [address] [place] Platelets (Bld) [#/Vol] 349 10*3/uL Normal 150-400 [facility] Comment on above: Order Comment: Speci men Type: BLOOD SPECIMENOrdering Facility: Address: [address] [place], [place] [address] Performed By: #### 5 8410-2 ####[facility] LABIA [id number] [place] [address] [place] RBC (Bld) [#/Vol] 2.96 10*6/uL Low 4.20-6.00 [facility] Comment on above: Order Comment: Speci men Type: BLOOD SPECIMENOrdering Facility: Address: [address] [place], [place] [address] Performed By: #### 5 8410-2 ####[facility] [id number] [place] [address] [place] WBC (Bld) [#/Vol] 10.19 10*3/uL Normal 3.70-11.00 [facility] Comment on above: Order Comment: Speci men Type: BLOOD SPECIMENOrdering Facility: Address: [address] [place], [place] [address] Performed By: #### 5 8410-2 ####[facility] [id number] [place] [address] [place] Erythrocyte distribution width (RBC) [Ratio] 13.6 % Normal 11.5-15.0 [facility] Comment on above: Order Comment: Speci men Type: BLOOD SPECIMENOrdering Facility: Address: [address] [place], [place] [address] Performed By: #### 5 8410-2 ####[facility] [id number] [place] [address] [place] Hematocrit (Bld) [Volume fraction] 26.6 % Low 39.0-51.0 [facility] Comment on above: Order Comment: Speci men Type: BLOOD SPECIMENOrdering Facility: Address: [address] [place], [place] [address] Performed By: #### 5 8410-2 ####[facility] LABCLIA [id number] [place] [address] [place] Hemoglobin (Bld) [Mass/Vol] 8.4 g/dL Low 13.0-17.0 [facility] Comment on above: Order Comment: Speci men Type: BLOOD SPECIMENOrdering Facility: Address: [address] [place], [place] [address] Performed By: #### 5 8410-2 ####[facility] LABIA [id number] [address] [place] MCH (RBC) [Entitic mass] 30.1 pg Normal 26.0-34.0 [facility] Comment on above: Order Comment: Speci men Type: BLOOD SPECIMENOrdering Facility: Address: [address] [place] [address] Performed By: #### 5 8410-2 ####[facility] LABIA [id number] [address] [place] MCHC (RBC) [Mass/Vol] 31.6 g/dL Normal 30.5-36.0 [facility] Comment on above: Order Comment: Speci men Type: BLOOD SPECIMENOrdering Facility: Address: [address] [place], [place] [address] Performed By: #### 5 8410-2 ####[facility] LABIA [id number] [address] [place] MCV (RBC) [Entitic vol] 95.3 fL Normal 80.0-100.0 [facility] Comment on above: Order Comment: Speci men Type: BLOOD SPECIMENOrdering Facility: Address: [address] [place], [place] [address] Performed By: #### 5 8410-2 ####[facility] LABIA [id number] [address] [id number] [address] [place] Nucleated RBC (Bld) [#/Vol] 10*3/uL Normal <0.01 [facility] Comment on above: Order Comment: Speci men Type: BLOOD SPECIMENOrdering Facility: Address: [address] [place], [place] [address] Performed By: #### 5 8410-2 ####[facility] LABCLIA [id number] [place] [address] [place] Platelet mean volume (Bld) [Entitic vol] 9.7 fL Normal 9.0-12.7 [facility] Comment on above: Order Comment: Speci men Type: BLOOD SPECIMENOrdering Facility: Address: [address] [place], [place] [address] Performed By: #### 5 8410-2 ####[facility] LABCLIA [id number] [place] [address] [place] Platelets (Bld) [#/Vol] 313 10*3/uL Normal 150-400 [facility] Comment on above: Order Comment: Speci men Type: BLOOD SPECIMENOrdering Facility: Address: [address] [place] [address] Performed By: #### 5 8410-2 ####[facility] LABCLIA [id number] [place] [address] [place] RBC (Bld) [#/Vol] 2.79 10*6/uL Low 4.20-6.00 [facility] Comment on above: Order Comment: Speci men Type: BLOOD SPECIMENOrdering Facility: Address: [address] [place], [place] [address] Performed By: #### 5 8410-2 ####[facility] LABCLIA [id number] [place] [address] [place] WBC (Bld) [#/Vol] 9.10 10*3/uL Normal 3.70-11.00 [facility] Comment on above: Order Comment: Speci men Type: BLOOD SPECIMENOrdering Facility: Address: [address] [place] [address] Performed By: #### 5 8410-2 ####[facility] LABCLIA [id number] [place] [address] [place] NURSING PROGon 11-12-2021 NURSING PROG Normal [facility] PTT, ANTICOAGULANT THERAPYon 11-12-2021 aPTT Coag (PPP) [Time] 80.0 s High 23.0-32.4 [facility] Comment on above: Order Comment: Speci men Type: BLOOD SPECIMENOrdering Facility: Address: [address] [place] [address] Result Comment: Inte rpret with caution. Sample centrifuged greater than 1 hour from collection time. According to Clinical and Laboratory Standards [place] guidelines, results could be falsely decreased due to heparin neutralization by in vitro release of platelet factor 4. Suggest correlation with clinical findings and redraw if indicated. Performed By: #### P TTAC ####[facility] LABCLIA [id number] [address] aPTT Coag (PPP) [Time] 47.9 s High 23.0-32.4 [facility] Comment on above: Order Comment: Speci men Type: BLOOD SPECIMENOrdering Facility: Address: [address] [place], [place] [address] Performed By: #### P TTAC ####[facility] LABCLIA [id number] [address] [place] [facility] aPTT Coag (PPP) [Time] 46.5 s High 23.0-32.4 [facility] Comment on above: Order Comment: Speci men Type: BLOOD SPECIMENOrdering Facility: Address: [address] [place] [address] Performed By: #### P TTAC ####[facility] LABCLIA [id number] [place] [address] [place] Renal function 2000 panelon 11-12-2021 Albumin [Mass/Vol] 2.7 g/dL Low 3.9-4.9 [facility] Comment on above: Order Comment: Speci men Type: BLOOD SPECIMENOrdering Facility: Address: [address] [place] [address] Performed By: #### 2 4362-6 ####[facility] LABCLIA [id number] [place] [address] [place] Anion gap [Moles/Vol] 11 mmol/L Normal 9-18 [facility] Comment on above: Order Comment: Speci men Type: BLOOD SPECIMENOrdering Facility: Address: [address] [place], [place] [address] Performed By: #### 2 4362-6 ####[facility] LABIA [id number] [place] [address] [place] Calcium [Mass/Vol] 8.3 mg/dL Low 8.5-10.2 [facility] Comment on above: Order Comment: Speci men Type: BLOOD SPECIMENOrdering Facility: Address: [address] [place] [address] Performed By: #### 2 4362-6 ####[facility] LABIA [id number] [place] [address] [place] Chloride [Moles/Vol] 111 mmol/L High 97-105 [facility] Comment on above: Order Comment: Speci men Type: BLOOD SPECIMENOrdering Facility: Address: [address] [place], [place] [address] Performed By: #### 2 4362-6 ####[facility] LABIA [id number] [place] [id number] [place] CO2 [Moles/Vol] 21 mmol/L Low 22-30 [facility] Comment on above: Order Comment: Speci men Type: BLOOD SPECIMENOrdering Facility: Address: [address] [place] [address] Performed By: #### 2 4362-6 ####[facility] LABIA [id number] [place] [address] [place] Creatinine [Mass/Vol] 1.07 mg/dL Normal 0.73-1.22 [facility] Comment on above: Order Comment: Speci men Type: BLOOD SPECIMENOrdering Facility: Address: [address] [place] [address] Performed By: #### 2 4362-6 ####[facility] LABIA [id number] [address] [place] ESTIMATED GLOMERULAR FILTRATION RATE 71 mL/min/1.73m??? Normal >=60 [facility] Comment on above: Order Comment: Speci men Type: BLOOD SPECIMENOrdering Facility: Address: [address] [place] [address] Result Comment: Sandra mated Glomerular Filtration Rate [...] actual GFR. Performed By: #### 2 4362-6 ####[facility] LABIA [id number] [place] [address] [place] Glucose [Mass/Vol] 133 mg/dL High 74-99 [facility] Comment on above: Order Comment: Speci men Type: BLOOD SPECIMENOrdering Facility: Address: [address] [place] [address] Result Comment: The [place] Diabetes Association (ADA) provides guidance for cutoff [...] Standards of Medical Care in Diabetes 2016, [place] Diabetes Association. Diabetes Care. 2016.39(Suppl 1). Performed By: #### 2 4362-6 ####[facility] LABCLIA [id number] [place] [address] [place] Phosphate [Mass/Vol] 2.8 mg/dL Normal 2.7-4.8 [facility] Comment on above: Order Comment: Speci men Type: BLOOD SPECIMENOrdering Facility: Address: [address] [place] [address] Performed By: #### 2 4362-6 ####[facility] LABIA [id number] [place] [address] [place] Potassium [Moles/Vol] 3.0 mmol/L Low 3.7-5.1 [facility] Comment on above: Order Comment: Speci men Type: BLOOD SPECIMENOrdering Facility: Address: [address] [place] [address] Performed By: #### 2 4362-6 ####[facility] LABCLIA [id number] [place] [address] [place] Sodium [Moles/Vol] 143 mmol/L Normal 136-144 [facility] Comment on above: Order Comment: Speci men Type: BLOOD SPECIMENOrdering Facility: Address: [address] [place] [address] Performed By: #### 2 4362-6 ####[facility] LABCLIA [id number] [address] [place] Urea nitrogen [Mass/Vol] 9 mg/dL Normal 9-24 [facility] Comment on above: Order Comment: Speci men Type: BLOOD SPECIMENOrdering Facility: Address: [address] [place] [address] Performed By: #### 2 4362-6 ####[facility] LABCLIA [id number] [place] [address] [place] THERAPY NTon 11-12-2021 THERAPY NT Normal [facility] CBC panel Auto (Bld)on 11-11 Erythrocyte distribution width (RBC) [Ratio] 13.6 % Normal 11.5-15.0 [facility] Comment on above: Order Comment: Speci men Type: BLOOD SPECIMENOrdering Facility: Address: [address] [place] [address] Performed By: #### 5 8410-2 ####[facility] LABIA [id number] [address] [place] Hematocrit (Bld) [Volume fraction] 27.6 % Low 39.0-51.0 [facility] Comment on above: Order Comment: Speci men Type: BLOOD SPECIMENOrdering Facility: Address: [address] [place] [address] Performed By: #### 5 8410-2 ####[facility] LABCLIA [id number] [place] [address] [place] Hemoglobin (Bld) [Mass/Vol] 8.9 g/dL Low 13.0-17.0 [facility] Comment on above: Order Comment: Speci men Type: BLOOD SPECIMENOrdering Facility: Address: [address] [place] [address] Performed By: #### 5 8410-2 ####[facility] LABCLIA [id number] [place] [address] [place] MCH (RBC) [Entitic mass] 30.3 pg Normal 26.0-34.0 [facility] Comment on above: Order Comment: Speci men Type: BLOOD SPECIMENOrdering Facility: Address: [address] [place], [place] [address] Performed By: #### 5 8410-2 ####[facility] LABCLIA [id number] [address] [place] MCHC (RBC) [Mass/Vol] 32.2 g/dL Normal 30.5-36.0 [facility] Comment on above: Order Comment: Speci men Type: BLOOD SPECIMENOrdering Facility: Address: [address] [place], [place] [address] Performed By: #### 5 8410-2 ####[facility] LABCLIA [id number] [address] [place] MCV (RBC) [Entitic vol] 93.9 fL Normal 80.0-100.0 [facility] Comment on above: Order Comment: Speci men Type: BLOOD SPECIMENOrdering Facility: Address: [address] [place], [place] [address] Performed By: #### 5 8410-2 ####[facility] LABCLIA [id number] [address] [place] Nucleated RBC (Bld) [#/Vol] 10*3/uL Normal <0.01 [facility] Comment on above: Order Comment: Speci men Type: BLOOD SPECIMENOrdering Facility: Address: [address] [place], [place] [address] Performed By: #### 5 8410-2 ####[facility] LABCLIA [id number] [address] [place] Platelet mean volume (Bld) [Entitic vol] 9.4 fL Normal 9.0-12.7 [facility] Comment on above: Order Comment: Speci men Type: BLOOD SPECIMENOrdering Facility: Address: [address] [place] [address] Performed By: #### 5 8410-2 ####[facility] LABCLIA [id number] [place] [address] [place] Platelets (Bld) [#/Vol] 351 10*3/uL Normal 150-400 [facility] Comment on above: Order Comment: Speci men Type: BLOOD SPECIMENOrdering Facility: Address: [address] [place] [address] Performed By: #### 5 8410-2 ####[facility] LABIA [id number] [place] [address] [place] RBC (Bld) [#/Vol] 2.94 10*6/uL Low 4.20-6.00 [facility] Comment on above: Order Comment: Speci men Type: BLOOD SPECIMENOrdering Facility: Address: [address] [place] [address] Performed By: #### 5 8410-2 ####[facility] LABIA [id number] [address] [place] WBC (Bld) [#/Vol] 9.02 10*3/uL Normal 3.70-11.00 [facility] Comment on above: Order Comment: Speci men Type: BLOOD SPECIMENOrdering Facility: Address: [address] [place] [address] Performed By: #### 5 8410-2 ####[facility] LABIA [id number] [address] OF [facility] [place]IRM BLOOD TYPEon 022 ABO O Normal [facility] Comment on above: Order Comment: Speci men Type: BLOOD SPECIMENOrdering Facility: Address: [address] [place] [address] Performed By: #### C ONABO ####[facility] BLOOD BANKCLIA [id number] [place] [address] [place] Rh Nom (Bld) Positive Normal [facility] Comment on above: Order Comment: Speci men Type: BLOOD SPECIMENOrdering Facility: Address: [address] [place] [address] Performed By: #### C ONABO ####[facility] BLOOD BANKCLIA [id number] [place] [address] [place] Gastrointestinal pathogens i dentified SHELLY+probe Nom (Stl)on 11-11-2021 Campylobacter sp DNA SHELLY+probe Nom (Unsp spec) Not detected Normal Not Detected [facility] Comment on above: Order Comment: Speci men Type: STOOL SPECIMENOrdering Facility: Address: [address] [place] [address] Performed By: #### 7 9390-1 ####[facility] LABCLIA [id number] [place] [address] [place] Salmonella sp DNA SHELLY+probe Ql (Unsp spec) Not detected Normal Not Detected [facility] Comment on above: Order Comment: Speci men Type: STOOL SPECIMENOrdering Facility: Address: [address] [place], [place] [address] Performed By: #### 7 9390-1 ####[facility] LABCLIA [id number] [place] [address] [place] Shiga toxin stx gene SHELLY+probe Nom (Unsp spec) Not detected Normal Not Detected [facility] Comment on above: Order Comment: Speci men Type: STOOL SPECIMENOrdering Facility: Address: [address] [place], [place] [address] Performed By: #### 7 9390-1 ####[facility] LABCLIA [id number] [id number] Shigella sp DNA SHELLY+probe Ql (Unsp spec) Not detected Normal Not Detected [facility] Comment on above: Order Comment: Speci men Type: STOOL SPECIMENOrdering Facility: Address: [address] [place] [address] Performed By: #### 7 9390-1 ####[facility] LABCLIA [id number] [address] PT panel Coag (PPP)on 2021 INR Coag (PPP) [Relative time] 1.1 {INR} Normal 0.9-1.3 [facility] Comment on above: Order Comment: Lucilai valerie Type: BLOOD SPECIMENOrdering Facility: Address: [address] [place] [address] Result Comment: Pippa min K Antagonist (VKA) Therapeutic Range: INR 2 to 3 (Target INR of 2.5)Note: For patients treated with VKA drugs, such as warfarin, the [employer] 2012 Guideline recommends [...] al. Chest 2012, 141:7S-47SLars RA, et al. [facility] 2017, 70: 252-289 Performed By: #### 3 4528-0, 42177-9 ####[facility] LABCLIA [id number] [address] [place] PT Coag (PPP) [Time] 11.1 s Normal 9.7-13.0 [facility] Comment on above: Order Comment: Speci men Type: BLOOD SPECIMENOrdering Facility: Address: [address] [place], [place] [address] Performed By: #### 3 4528-0, 98524-7 ####[facility] LABCLIA [id number] [place] [address] [place] Renal function 2000 panelon 11-11-2021 Albumin [Mass/Vol] 2.5 g/dL Low 3.9-4.9 [facility] Comment on above: Order Comment: Speci men Type: BLOOD SPECIMENOrdering Facility: Address: [address] [place], [place] [address] Performed By: #### 2 4362-6 ####[facility] LABCLIA [id number] [place] [address] [place] Anion gap [Moles/Vol] 11 mmol/L Normal 9-18 [facility] Comment on above: Order Comment: Speci men Type: BLOOD SPECIMENOrdering Facility: Address: [address] [place], [place] [address] Performed By: #### 2 4362-6 ####[facility] LABCLIA [id number] [place] [address] [place] Calcium [Mass/Vol] 8.5 mg/dL Normal 8.5-10.2 [facility] Comment on above: Order Comment: Speci men Type: BLOOD SPECIMENOrdering Facility: Address: [address] [place] [address] Performed By: #### 2 4362-6 ####[facility] LABCLIA [id number] [place] [address] [place] Chloride [Moles/Vol] 111 mmol/L High 97-105 [facility] Comment on above: Order Comment: Speci men Type: BLOOD SPECIMENOrdering Facility: Address: [address] [place], [place] [address] Performed By: #### 2 4362-6 ####[facility] LABCLIA [id number] [place] [address] [place] CO2 [Moles/Vol] 20 mmol/L Low 22-30 [facility] Comment on above: Order Comment: Speci men Type: BLOOD SPECIMENOrdering Facility: Address: [address] [place] [address] Performed By: #### 2 4362-6 ####[facility] LABCLIA [id number] [place] [address] [place] Creatinine [Mass/Vol] 1.19 mg/dL Normal 0.73-1.22 [facility] Comment on above: Order Comment: Speci men Type: BLOOD SPECIMENOrdering Facility: Address: [address] [place] [address] Performed By: #### 2 4362-6 ####[facility] LABIA [id number] [address] [place] ESTIMATED GLOMERULAR FILTRATION RATE 62 mL/min/1.73m??? Normal >=60 [facility] Comment on above: Order Comment: Speci men Type: BLOOD SPECIMENOrdering Facility: Address: [address] [place] [address] Result Comment: Sandra [...] actual GFR. Performed By: #### 2 4362-6 ####[facility] LABCLIA [id number] [place] [address] [place] Glucose [Mass/Vol] 101 mg/dL High 74-99 [facility] Comment on above: Order Comment: Speci men Type: BLOOD SPECIMENOrdering Facility: Address: [address] [place] [address] Result Comment: The [place] Diabetes Association (ADA) provides guidance for cutoff [...] Standards of Medical Care in Diabetes 2016, [place] Diabetes Association. Diabetes Care. 2016.39(Suppl 1). Performed By: #### 2 4362-6 ####[facility] LABIA [id number] [place] [address] [place] Phosphate [Mass/Vol] 3.3 mg/dL Normal 2.7-4.8 [facility] Comment on above: Order Comment: Speci men Type: BLOOD SPECIMENOrdering Facility: Address: [address] [place], [place] [address] Performed By: #### 2 4362-6 ####[facility] LABIA [id number] [place] [address] [place] Potassium [Moles/Vol] 3.7 mmol/L Normal 3.7-5.1 [facility] Comment on above: Order Comment: Speci men Type: BLOOD SPECIMENOrdering Facility: Address: [address] [place] [id number] Performed By: #### 2 4362-6 ####[facility] LABIA [id number] [place] [address] [place] Sodium [Moles/Vol] 142 mmol/L Normal 136-144 [facility] Comment on above: Order Comment: Speci men Type: BLOOD SPECIMENOrdering Facility: Address: [address] [place] [address] Performed By: #### 2 4362-6 ####[facility] LABCLIA [id number] [place] [address] [place] Urea nitrogen [Mass/Vol] 10 mg/dL Normal 9-24 [facility] Comment on above: Order Comment: Speci men Type: BLOOD SPECIMENOrdering Facility: Address: [address] [place] [address] Performed By: #### 2 4362-6 ####[facility] LABIA [id number] [address] [place] THERAPY NTon 11-11-2021 THERAPY NT Normal [facility] THERAPY NT Normal [facility] THERAPY NT Normal [facility] THERAPY NT Normal [facility] XR ENTERIC TUBE INJECTIONon 11-11-2021 XR ENTERIC TUBE INJECTION Normal [facility] XR MOD BARIUM SWALLOW W SPEE Temo 11-11-2021 XR MOD BARIUM SWALLOW W SPEECH Normal [facility] aPTT PPPon 11-11-2021 aPTT Coag (PPP) [Time] 28.0 s Normal 23.0-32.4 [facility] Comment on above: Order Comment: Speci men Type: BLOOD SPECIMENOrdering Facility: Address: [address] [place] [address] Performed By: #### 3 4528-0, 61363-5 ####[facility] LABCLIA [id number] [place] [address] [place] Bacteria Bld Culton 11-11-19 22 Bacteria identified Cx Nom (Bld) ORGANISM ID: 1 Staphylococcus epidermidis Probable contaminant. Susceptibility testing will not be performed. Call lab within 72 hours to initiate workup if clinically indicated. GRAM STAIN: Gram positive cocci in clusters Abnormal [facility] Comment on above: Performed By: #### 6 00-7 ####[facility] LABCLIA [id number] [address] [place] Bacteria identified Cx Nom (Bld) CULTURE, BLOOD: No growth 5 days Normal [facility] Comment on above: Performed By: #### 6 00-7 ####[facility] LABCLIA [id number] [place] [address] [place] Bacteria Spec Resp Culton Bacteria identified Respiratory culture Nom (Unsp spec) Abnormal [facility] Comment on above: Performed By: #### 3 2355-0 ####[facility] LABCLIA [id number] [place] [address] [place] CASE MGT INIT ASSESon 2021 CASE MGT INIT ASSES Normal [facility] CONSULTon 11-10-2021 CONSULT Normal [facility] CONSULT Normal [facility] CT ABD/PEL W IVCONon 022 CT ABD/PEL W IVCON Invalid Interpretation Code [facility] ED NOTEon 11-10-2021 ED NOTE HNO ID: [id number] Author: Radha Corley RN Service: Emergency Medicine Author Type: Registered Nurse Type: ED Notes Filed: 11/10/2021 12:24 AM Note Text: Pt to CT scan Normal [facility] HISTORY PHYSICALon HISTORY PHYSICAL Normal [facility] NUTRITIONon 11-10-2021 NUTRITION Normal [facility] PT panel Coag (PPP)on 2021 INR Coag (PPP) [Relative time] 1.1 {INR} Normal 0.9-1.3 [facility] Comment on above: Order Comment: Speci men Type: BLOOD SPECIMENOrdering Facility: Address: [address] [facility] [place] [address] Result Comment: Pippa min K Antagonist (VKA) Therapeutic Range: INR 2 to 3 (Target INR of 2.5)Note: For patients treated with VKA drugs, such as warfarin, the [place] College [employer] Chest [employer]icians 2012 Guideline recommends [...] al. Chest 2012, 141:7S-47SNishimura RA, et al. [facility] 2017, 70: 252-289 Performed By: #### 1 4979-9, 72853-0 ####[facility] LABCLIA [id number] [place] [address] [place] PT Coag (PPP) [Time] 11.4 s Normal 9.7-13.0 [facility] Comment on above: Order Comment: Speci men Type: BLOOD SPECIMENOrdering Facility: Address: [address] [place] [address] Performed By: #### 1 4979-9, 21812-7 ####[facility] LABCLIA [id number] [address] [place] THERAPY NTon 11-10-2021 THERAPY NT Normal [facility] TYPE + SCREENon 11-10-2021 ABO O Normal [facility] Comment on above: Order Comment: Speci men Type: BLOOD SPECIMENOrdering Facility: Address: [address] [place] [address] Performed By: #### T SCR ####[facility] BLOOD BANKCLIA [id number] [address] [place] HISTORICAL AB SCR STATUS Negative Normal [facility] Comment on above: Order Comment: Speci men Type: BLOOD SPECIMENOrdering Facility: Address: [address] [place], [place] [address] Performed By: #### T SCR ####[facility] BLOOD BANKCLIA [id number] [place] [address] [place] Rh Nom (Bld) Positive Normal [facility] Comment on above: Order Comment: Speci men Type: BLOOD SPECIMENOrdering Facility: Address: [address] [place] [address] Performed By: #### T SCR ####[facility] BLOOD BANKIA [id number] [address] OF [facility] TYPE AND SCREEN EXPIRATION 11/13/2021 23:59 Normal [facility] Comment on above: Order Comment: Speci men Type: BLOOD SPECIMENOrdering Facility: Address: [address] [place] [address] Performed By: #### T SCR ####[facility] BLOOD BANKIA [id number] [address] [place] Urinalysis complete panel (U )on 11-10-2021 Bacteria LM.HPF (Urine sed) [#/Area] Rare Abnormal None Seen [facility] Comment on above: Order Comment: Speci men Type: URINE SPECIMENOrdering Facility: Address: [address] [place] [address] Performed By: #### 2 4356-8 ####[facility] LABCLIA [id number] [place] [address] [place] Bilirubin Ql (U) Negative Normal Negative [facility] Comment on above: Order Comment: Speci men Type: URINE SPECIMENOrdering Facility: Address: [address] [place] [address] Performed By: #### 2 4356-8 ####[facility] LABCLIA [id number] [address] [place] Clarity (Unsp spec) Clear Normal Clear [facility] Comment on above: Order Comment: Speci men Type: URINE SPECIMENOrdering Facility: Address: [address] [place], [place] [address] Performed By: #### 2 4356-8 ####[facility] LABCLIA [id number] [place] [address] [place] Color (U) Straw Normal Yellow [facility] Comment on above: Order Comment: Speci men Type: URINE SPECIMENOrdering Facility: Address: [address] [place], [place] [address] Performed By: #### 2 4356-8 ####[facility] LABCLIA [id number] [address] [place] Glucose Test strip (U) [Mass/Vol] Negative Normal Negative [facility] Comment on above: Order Comment: Speci men Type: URINE SPECIMENOrdering Facility: Address: [address] [place], [place] [address] Performed By: #### 2 4356-8 ####[facility] LABCLIA [id number] [place] [address] [place] Hemoglobin Ql (U) Negative Normal Negative [facility] Comment on above: Order Comment: Speci men Type: URINE SPECIMENOrdering Facility: Address: [address] [place], [place] [address] Performed By: #### 2 4356-8 ####[facility] LABCLIA [id number] [place] [address] [place] Ketones Ql (U) Negative Normal Negative [facility] Comment on above: Order Comment: Speci men Type: URINE SPECIMENOrdering Facility: Address: [address] [place], [place] [address] Performed By: #### 2 4356-8 ####[facility] LABCLIA [id number] [place] [address] [place] Leukocyte esterase Test strip Ql (U) 2+ Abnormal Negative [facility] Comment on above: Order Comment: Speci men Type: URINE SPECIMENOrdering Facility: Address: [address] [place], [place] [address] Performed By: #### 2 4356-8 ####[facility] LABCLIA [id number] [place] [address] [place] Nitrite Ql (U) Negative Normal Negative [facility] Comment on above: Order Comment: Speci men Type: URINE SPECIMENOrdering Facility: Address: [address] [place], [place] [address] Performed By: #### 2 4356-8 ####[facility] LABIA [id number] [place] [address] [place] pH (U) 6.0 [pH] Normal 5.0-8.0 [facility] Comment on above: Order Comment: Speci men Type: URINE SPECIMENOrdering Facility: Address: [address] [place], [place] [address] Performed By: #### 2 4356-8 ####[facility] LABIA [id number] [place] [address] [place] [facility] Protein (U) [Mass/Vol] 1+ Abnormal Negative [facility] Comment on above: Order Comment: Speci men Type: URINE SPECIMENOrdering Facility: Address: [address] [place], [place] [address] Performed By: #### 2 4356-8 ####[facility] LABIA [id number] [place] [address] [place] RBC LM.HPF (Urine sed) [#/Area] 0-3 /HPF Normal 0-3 /HPF [facility] Comment on above: Order Comment: Speci men Type: URINE SPECIMENOrdering Facility: Address: [address] [place], [place] [address] Performed By: #### 2 4356-8 ####[facility] LABIA [id number] [place] [address] [place] Specific gravity (U) [Rel density] 1.031 High 1.005-1.030 [facility] Comment on above: Order Comment: Speci men Type: URINE SPECIMENOrdering Facility: Address: [address] [place] [address] Performed By: #### 2 4356-8 ####[facility] LABIA [id number] [place] [address] [place] Urobilinogen Ql (U) Negative Normal Negative [facility] Comment on above: Order Comment: Speci men Type: URINE SPECIMENOrdering Facility: Address: [address] [place] [address] Performed By: #### 2 4356-8 ####[facility] [id number] [place] [address] [place] WBC LM.HPF (Urine sed) [#/Area] 11-25 /HPF Abnormal 0-5 /HPF [facility] Comment on above: Order Comment: Speci men Type: URINE SPECIMENOrdering Facility: Address: [address] [place] [address] Performed By: #### 2 4356-8 ####[facility] LABIA [id number] [place] [address] [place] Yeast.budding LM.HPF (Urine sed) [#/Area] Few Abnormal None Seen [facility] Comment on above: Order Comment: Speci men Type: URINE SPECIMENOrdering Facility: Address: [address] [place], [place] [address] Performed By: #### 2 4356-8 ####[facility] LABIA [id number] [place] [address] [place] XR CHEST 2V FRONTAL/LATon XR CHEST 2V FRONTAL/LAT Normal [facility] aPTT PPPon 11-10-2021 aPTT Coag (PPP) [Time] 28.8 s Normal 23.0-32.4 [facility] Comment on above: Order Comment: Speci men Type: BLOOD SPECIMENOrdering Facility: Address: [address] [place] [address] Performed By: #### 1 4979-9, 85760-1 ####[facility] LABCLIA [id number] [place] [address] [place] CBC W Auto Differential pane l (Bld)on 11-09-2021 Basophils (Bld) [#/Vol] 0.09 10*3/uL Normal <0.11 [facility] Comment on above: Order Comment: Speci men Type: BLOOD SPECIMENOrdering Facility: Address: [address] [place] [address] Performed By: #### 5 7021-8, 14111-6 ####[facility] LABIA [id number] [place] [address] [place] Basophils/100 WBC (Bld) 0.6 % Normal [facility] Comment on above: Order Comment: Speci men Type: BLOOD SPECIMENOrdering Facility: Address: [address] [place] [address] Performed By: #### 5 7021-8, 87525-9 ####[facility] LABCLIA [id number] [address] [place] Differential cell count method Nom (Bld) Auto Normal [facility] Comment on above: Order Comment: Speci men Type: BLOOD SPECIMENOrdering Facility: Address: [address] [place] [address] Performed By: #### 5 7021-8, 16139-8 ####[facility] LABCLIA [id number] [place] [address] [place] Eosinophils (Bld) [#/Vol] 0.45 10*3/uL Normal <0.46 [facility] Comment on above: Order Comment: Speci men Type: BLOOD SPECIMENOrdering Facility: Address: [address] [place] [address] Performed By: #### 5 7021-8, 80694-2 ####[facility] LABCLIA [id number] [address] [place] Eosinophils/100 WBC (Bld) 3.2 % Normal [facility] Comment on above: Order Comment: Speci men Type: BLOOD SPECIMENOrdering Facility: Address: [address] [place] [address] Performed By: #### 5 7021-8, 84408-6 ####[facility] LABCLIA [id number] [address] STATES OF [facility] Erythrocyte distribution width (RBC) [Ratio] 13.5 % Normal 11.5-15.0 [facility] Comment on above: Order Comment: Speci men Type: BLOOD SPECIMENOrdering Facility: Address: [address] [place] [address] Performed By: #### 5 7021-8, 36330-0 ####[facility] LABCLIA [id number] [place] [address] [place] Hematocrit (Bld) [Volume fraction] 33.5 % Low 39.0-51.0 [facility] Comment on above: Order Comment: Speci men Type: BLOOD SPECIMENOrdering Facility: Address: [address] [place] [address] Performed By: #### 5 7021-8, 55151-2 ####[facility] LABCLIA [id number] [place] [address] [place] Hemoglobin (Bld) [Mass/Vol] 10.7 g/dL Low 13.0-17.0 [facility] Comment on above: Order Comment: Speci men Type: BLOOD SPECIMENOrdering Facility: Address: [address] [place], [place] [address] Performed By: #### 5 7021-8, 72331-3 ####[facility] LABCLIA [id number] [address] [place] IMMATURE GRAN % 0.8 % Normal [facility] Comment on above: Order Comment: Speci men Type: BLOOD SPECIMENOrdering Facility: Address: [address] [place], [place] [address] Performed By: #### 5 7021-8, 97954-6 ####[facility] LABCLIA [id number] [place] [address] [place] IMMATURE GRAN ABS 0.11 k/uL High <0.10 [facility] Comment on above: Order Comment: Speci men Type: BLOOD SPECIMENOrdering Facility: Address: [address] [place], [place] [address] Performed By: #### 5 7021-8, 66932-2 ####[facility] LABCLIA [id number] [place] [address] [place] Lymphocytes (Bld) [#/Vol] 1.73 10*3/uL Normal 1.00-4.00 [facility] Comment on above: Order Comment: Speci men Type: BLOOD SPECIMENOrdering Facility: Address: [address] [place], [place] [address] Performed By: #### 5 7021-8, 29192-2 ####[facility] LABCLIA [id number] [address] [place] Lymphocytes/100 WBC (Bld) 12.1 % Normal [facility] Comment on above: Order Comment: Speci men Type: BLOOD SPECIMENOrdering Facility: Address: [address] [place] [address] Performed By: #### 5 7021-8, 99383-2 ####[facility] LABCLIA [id number] [place] [address] [place] MCH (RBC) [Entitic mass] 30.1 pg Normal 26.0-34.0 [facility] Comment on above: Order Comment: Speci men Type: BLOOD SPECIMENOrdering Facility: Address: [address] [place], [place] [address] Performed By: #### 5 7021-8, 60089-4 ####[facility] LABIA [id number] [address] [place] MCHC (RBC) [Mass/Vol] 31.9 g/dL Normal 30.5-36.0 [facility] Comment on above: Order Comment: Speci men Type: BLOOD SPECIMENOrdering Facility: Address: [address] [place], [place] [address] Performed By: #### 5 7021-8, 38976-9 ####[facility] LABIA [id number] [place] [address] [place] MCV (RBC) [Entitic vol] 94.4 fL Normal 80.0-100.0 [facility] Comment on above: Order Comment: Speci men Type: BLOOD SPECIMENOrdering Facility: Address: [address] [place] [address] Performed By: #### 5 7021-8, 04627-5 ####[facility] LABIA [id number] [place] [address] [place] Monocytes (Bld) [#/Vol] 0.66 10*3/uL Normal <0.87 [facility] Comment on above: Order Comment: Speci men Type: BLOOD SPECIMENOrdering Facility: Address: [address] [place], [place] [address] Performed By: #### 5 7021-8, 42027-8 ####[facility] LABIA [id number] [place] [address] [place] Monocytes/100 WBC (Bld) 4.6 % Normal [facility] Comment on above: Order Comment: Speci men Type: BLOOD SPECIMENOrdering Facility: Address: [address] [place], [place] [address] Performed By: #### 5 7021-8, 03364-8 ####[facility] LABIA [id number] [place] [address] [place] Neutrophils (Bld) [#/Vol] 11.24 10*3/uL High 1.45-7.50 [facility] Comment on above: Order Comment: Speci men Type: BLOOD SPECIMENOrdering Facility: Address: [address] [place], [place] [address] Performed By: #### 5 7021-8, 08949-9 ####[facility] LABIA [id number] [place] [address] [place] Neutrophils/100 WBC (Bld) 78.7 % Normal [facility] Comment on above: Order Comment: Speci men Type: BLOOD SPECIMENOrdering Facility: Address: [address] [place] [address] Performed By: #### 5 7021-8, 84808-5 ####[facility] LABIA [id number] [place] [address] [place] Nucleated RBC (Bld) [#/Vol] 10*3/uL Normal <0.01 [facility] Comment on above: Order Comment: Speci men Type: BLOOD SPECIMENOrdering Facility: Address: [address] [place] [address] Performed By: #### 5 7021-8, 56361-2 ####[facility] LABCLIA [id number] [place] [address] [place] Nucleated RBC/100 WBC (Bld) [Ratio] 0.0 /100 WBC Normal [facility] Comment on above: Order Comment: Speci men Type: BLOOD SPECIMENOrdering Facility: Address: [address] [place] [address] Performed By: #### 5 7021-8, 79319-3 ####[facility] LABCLIA [id number] [place] [address] [place] Platelet mean volume (Bld) [Entitic vol] 9.2 fL Normal 9.0-12.7 [facility] Comment on above: Order Comment: Speci men Type: BLOOD SPECIMENOrdering Facility: Address: [address] [place] [address] Performed By: #### 5 7021-8, 39501-5 ####[facility] LABCLIA [id number] [place] [address] [place] Platelets (Bld) [#/Vol] 432 10*3/uL High 150-400 [facility] Comment on above: Order Comment: Speci men Type: BLOOD SPECIMENOrdering Facility: Address: [address] [place], [place] [address] Performed By: #### 5 7021-8, 40105-4 ####[facility] LABCLIA [id number] [place] [address] [place] RBC (Bld) [#/Vol] 3.55 10*6/uL Low 4.20-6.00 [facility] Comment on above: Order Comment: Speci men Type: BLOOD SPECIMENOrdering Facility: Address: [address] [place] [address] Performed By: #### 5 7021-8, 13992-2 ####[facility] LABCLIA [id number] [address] [address] [place] WBC (Bld) [#/Vol] 14.28 10*3/uL High 3.70-11.00 [facility] Comment on above: Order Comment: Speci men Type: BLOOD SPECIMENOrdering Facility: Address: [address] [place] [address] Performed By: #### 5 7021-8, 93489-9 ####[facility] LABCLIA [id number] [place] [id number] [place] Comprehensive metabolic 2000 panelon 11-09-2021 Albumin [Mass/Vol] 3.4 g/dL Low 3.9-4.9 [facility] Comment on above: Order Comment: Speci men Type: BLOOD SPECIMENOrdering Facility: Address: [address] [place] [address] Performed By: #### 2 4323-8, 3040-3, 40716-8, 13915-2, 3016-3 ####[facility] LABCLIA [id number] [place] [address] [place] ALP [Catalytic activity/Vol] 92 U/L Normal 38-113 [facility] Comment on above: Order Comment: Speci men Type: BLOOD SPECIMENOrdering Facility: Address: [address] [place], [place] [address] Performed By: #### 2 4323-8, 3040-3, 38171-7, 00006-6, 3016-3 ####[facility] LABCLIA [id number] [place] [id number] [place] ALT [Catalytic activity/Vol] 6 U/L Low 10-54 [facility] Comment on above: Order Comment: Speci men Type: BLOOD SPECIMENOrdering Facility: Address: [address] [place], [place] [address] Performed By: #### 2 4323-8, 3040-3, 03825-1, 14072-7, 3016-3 ####[facility] LABCLIA [id number] [place] [id number] [place] Anion gap [Moles/Vol] 12 mmol/L Normal 9-18 [facility] Comment on above: Order Comment: Speci men Type: BLOOD SPECIMENOrdering Facility: Address: [address] [place] [address] Performed By: #### 2 4323-8, 3040-3, 20963-2, 43682-9, 3016-3 ####[facility] LABIA [id number] [place] [address] [place] AST [Catalytic activity/Vol] 8 U/L Low 14-40 [facility] Comment on above: Order Comment: Speci men Type: BLOOD SPECIMENOrdering Facility: Address: [address] [place] [address] Performed By: #### 2 4323-8, 3040-3, 55820-9, 07850-3, 6-3 ####[facility] LABIA [id number] [place] [address] [place] Bilirubin [Mass/Vol] 0.2 mg/dL Normal 0.2-1.3 [facility] Comment on above: Order Comment: Speci men Type: BLOOD SPECIMENOrdering Facility: Address: [address] [place] [address] Performed By: #### 2 4323-8, 3040-3, 33004-8, 55923-4, 3016-3 ####[facility] LABCLIA [id number] [place] [address] [place] Calcium [Mass/Vol] 9.7 mg/dL Normal 8.5-10.2 [facility] Comment on above: Order Comment: Speci men Type: BLOOD SPECIMENOrdering Facility: Address: [address] [place], [place] [address] Performed By: #### 2 4323-8, 3040-3, 80410-1, 01602-1, 3015-3 ####[facility] LABCLIA [id number] [facility] CENTERLID AVENUERIVERSIDE COUNTY REGIONAL MEDICAL CENTERK [place] [id number] [place] Chloride [Moles/Vol] 107 mmol/L High 97-105 [facility] Comment on above: Order Comment: Speci men Type: BLOOD SPECIMENOrdering Facility: Address: [address] [place], [place] [address] Performed By: #### 2 4323-8, 3040-3, 83629-0, 54709-9, 6-3 ####[facility] LABCLIA [id number] [place] [address] [place] CO2 [Moles/Vol] 22 mmol/L Normal 22-30 [facility] Comment on above: Order Comment: Speci men Type: BLOOD SPECIMENOrdering Facility: Address: [address] [place], [place] [address] Performed By: #### 2 4323-8, 3040-3, 72135-3, 44643-9, 6-3 ####[facility] LABCLIA [id number] [place] [address] [place] Creatinine [Mass/Vol] 1.13 mg/dL Normal 0.73-1.22 [facility] Comment on above: Order Comment: Speci men Type: BLOOD SPECIMENOrdering Facility: Address: [address] [place], [place] [address] Performed By: #### 2 4323-8, 3040-3, 15173-1, 11197-8, 6-3 ####[facility] LABCLIA [id number] [facility] [place] [id number] [place] ESTIMATED GLOMERULAR FILTRATION RATE 66 mL/min/1.73m??? Normal >=60 [facility] Comment on above: Order Comment: Misbah valerie Type: BLOOD SPECIMENOrdering Facility: Address: [address] [place] [address] Result Comment: Sandra mated Glomerular Filtration Rate [...] GFR. Performed By: #### 2 4323-8, 3040-3, 49871-7, 75634-8, 6-3 ####[facility] LABCLIA [id number] [address] [address] [place] Glucose [Mass/Vol] 130 mg/dL High 74-99 [facility] Comment on above: Order Comment: Misbah padilla Type: BLOOD SPECIMENOrdering Facility: Address: [address] [place] [address] Result Comment: The [place] Diabetes Association (ADA) provides guidance for cutoff [...] Standards of Medical Care in Diabetes 2016, Australian Diabetes Association. Diabetes Care. 2016.39(Suppl 1). Performed By: #### 2 4323-8, 3040-3, 19931-6, 63406-1, 6-3 ####[facility] LABCLIA [id number] [address] [address] [place] Potassium [Moles/Vol] 4.0 mmol/L Normal 3.7-5.1 [facility] Comment on above: Order Comment: Speci men Type: BLOOD SPECIMENOrdering Facility: Address: [address] [place] [address] Performed By: #### 2 4323-8, 3040-3, 65143-7, 02857-9, 3016-3 ####[facility] LABCLIA [id number] [place] [address] [place] Protein [Mass/Vol] 6.5 g/dL Normal 6.3-8.0 [facility] Comment on above: Order Comment: Speci men Type: BLOOD SPECIMENOrdering Facility: Address: [address] [place] [address] Performed By: #### 2 4323-8, 3040-3, 35050-7, 31406-1, 3016-3 ####[facility] LABCLIA [id number] [place] [address] [place] Sodium [Moles/Vol] 141 mmol/L Normal 136-144 [facility] Comment on above: Order Comment: Speci men Type: BLOOD SPECIMENOrdering Facility: Address: [address] [place] [address] Performed By: #### 2 4323-8, 3040-3, 16874-0, 94878-6, 3016-3 ####[facility] LABCLIA [id number] [place] [address] [place] Urea nitrogen [Mass/Vol] 13 mg/dL Normal 9-24 [facility] Comment on above: Order Comment: Speci men Type: BLOOD SPECIMENOrdering Facility: Address: [address] [place] [address] Performed By: #### 2 4323-8, 3040-3, 55094-2, 31757-8, 3016-3 ####[facility] LABCLIA [id number] [place] [id number] [place] ED NOTEon 11-09-2021 ED NOTE Normal [facility] ED PROV NOTEon 11-09-2021 ED PROV NOTE Normal [facility] HbA1c (Bld)on 11-09-2021 Average glucose Estimated from glycated hemoglobin (Bld) [Mass/Vol] 128 mg/dL Normal [facility] Comment on above: Order Comment: Speci men Type: BLOOD SPECIMENOrdering Facility: Address: [address] [place] [address] Result Comment: eAG: (Estimated average glucose) is a calculated value from HgbA1c and is medical claims representative of the average blood glucose level in the last 2-3 month period. Performed By: #### 5 7021-8, 25436-9 ####[facility] LABCLIA [id number] [address] STATES OF [facility] HbA1c (Bld) [Mass fraction] 6.1 % High 4.3-5.6 [facility] Comment on above: Order Comment: Misbah padilla Type: BLOOD SPECIMENOrdering Facility: Address: [address] [place] [address] Result Comment: Amer ican Diabetes Association guidelines indicate that patients with HgbA1c in the range 5.7-6.4% are at increased risk for development of diabetes, and intervention by lifestyle modification may be beneficial. HgbA1c greater or equal to 6.5% is considered diagnostic of diabetes. Performed By: #### 5 7021-8, 09316-5 ####[facility] LABCLIA [id number] [address] [place] Iron and Iron binding capaci ty panelon 11-09-2021 Iron [Mass/Vol] 44 ug/dL Normal 41-186 [facility] Comment on above: Order Comment: Lucilai men Type: BLOOD SPECIMENOrdering Facility: Address: [address] [place] [address] Performed By: #### 2 4323-8, 3040-3, 02541-5, 48636-1, 3016-3 ####[facility] LABCLIA [id number] [place] [id number] [place] Iron binding capacity [Mass/Vol] 139 ug/dL Low 232-386 [facility] Comment on above: Order Comment: Speci men Type: BLOOD SPECIMENOrdering Facility: Address: [address] [place] [address] Performed By: #### 2 4323-8, 3040-3, 40042-7, 87096-7, 3016-3 ####[facility] LABIA [id number] [place] [address] [place] Iron/TIBC [Molar ratio] 31.7 % Normal 15.0-57.0 [facility] Comment on above: Order Comment: Speci men Type: BLOOD SPECIMENOrdering Facility: Address: [address] [place] [address] Performed By: #### 2 4323-8, 3040-3, 56188-4, 07449-2, 3016-3 ####[facility] LABIA [id number] [place] [address] [place] Lipase SerPl-cCncon 11-10-19 Lipase [Catalytic activity/Vol] 13 U/L Low 16-61 [facility] Comment on above: Order Comment: Speci men Type: BLOOD SPECIMENOrdering Facility: Address: [address] [place] [address] Performed By: #### 2 4323-8, 3040-3, 72856-9, 59853-9, 3016-3 ####[facility] LABIA [id number] [place] [address] [place] Magnesium SerPl-mCncon 11-09 Magnesium [Mass/Vol] 2.0 mg/dL Normal 1.7-2.3 [facility] Comment on above: Order Comment: Speci men Type: BLOOD SPECIMENOrdering Facility: Address: [address] [place] [address] Performed By: #### 2 4323-8, 3040-3, 06297-1, 40439-3, 3016-3 ####[facility] LABIA [id number] [place] [address] [place] SARS-CoV-2 RNA Resp Ql SHELLY+p robeon 11-09-2021 SARS-CoV-2 (COVID-19) RNA SHELLY+probe Ql (Resp) COVID 19 RESULT: SARS-CoV-2 (Agent of COVID-19) Not Detected by RT-PCR or equivalent method. This test has been authorized by FDA under an Emergency Use Authorization (EUA). Normal [facility] Comment on above: Performed By: #### 9 4500-6 ####[facility] [id number] [place] [address] [place] TROPONIN Ton 11-09-2021 Troponin T.cardiac [Mass/Vol] 0.011 ug/L Normal 0.000-0.029 [facility] Comment on above: Order Comment: Speci men Type: BLOOD SPECIMENOrdering Facility: Address: [address] [place] [address] Performed By: #### T NT ####[facility] [id number] [place] [address] [place] TSH SerPl-aCncon 11-09-2021 TSH Qn 0.548 m[IU]/L Normal 0.270-4.200 [facility] Comment on above: Order Comment: Speci men Type: BLOOD SPECIMENOrdering Facility: Address: [address] [place] [address] Performed By: #### 2 4323-8, 3040-3, 29184-0, 65279-3, 3016-3 ####[facility] LABIA [id number] [place] [id number] [place] Echocardiogramon 11-04-2021 Echocardiography [facility] anayeli [address] [place] [address], [address], [place] [address] TRANSTHORACIC ECHOCARDIOGRAM REPORT Patient Name: FRANKI Maki Physician: [id number] Glenn HERNANDEZ MD Study Date: 11/04/2021 Referring Physician: [id number] LAURO COLLINS MRN/PID: [id number] PCP: Micheal Gutiérrez Accession/Order#: [id number] Department Location: [facility] Date of : 1940 Fellow: Gender: M Nurse: Admit Date: Supervisor Tower: Zeenat Trejo RDCS, T Height: 180.34 cm CC Report to: Weight: 68.04 kg Study Type: Echocardiogram BSA: 1.87 m2 Blood Pressure: 142 /70 mmHg Diagnosis/ICD: R07.89-Other chest pain; I25.5-Ischemic cardiomyopathy Indication: Hyperlipidemia, CAD, GA and PTCA-06/2021, CHF, COPD, Tobacco Abuse, Peripheral Vascular Disease, Right SFA Stent Procedure/CPT: Echo Complete w Full Doppler-81492 Study Detail: The following Echo studies were [...] 1.3 m/s (0.6-0.9m/s) PV Max P.7 mmHg [id number] Glenn Kapoor MD Electronically signed on 11/05/2021 at 9:06:54 AM Final Normal [facility] VASC LAB PVR W/O EXERCISEon 11-04-2021 VASC LAB PVR W/O EXERCISE [address], [address] [place] [address] Vascular Lab Report PVR With Out Exercise Patient Name: FRANKI Glynn Physician: [id number] Saige Bassett MD, [facility] Study Date: 11/04/2021 Referring [id number] LAURO COLLINS Physician: MRN/PID: [id number] PCP: Micheal Gutiérrez Accession/Order#: [id number] CC Report to: Date of : 1940 Technologist: Zeenat Trejo RDCS [facility] Gender: M Technologist 2: Admission Status: Outpatient Location Performed: [facility] Diagnosis/ICD: I73.9-Peripheral vascular disease, unspecified Indication: Hyperlipidemia, CAD, GA and PTCA-06/2021, Chest Discomfort, CHF, COPD, Tobacco Abuse, Right SFA Stent Procedure/CPT: 81911 Peripheral artery PVR (multi segmental pressure)-40413 CONCLUSIONS: Right Lower PVR: There is evidence [...] Left Brachial Pressure 138 mmHg 132 mmHg [id number] Saige Bassett MD, FACC Final Normal [facility] VAS LAB PVR W/O EXERCISE -[facility] Heart-Sandu marika 250 DO Work Phone: GI PANEL (PCR)on 10-28-2021 Adenovirus F 40/41 Not detected Normal NOT DETECTED [facility] Comment on above: Performed By: #### G IPANEL ####[facility] Lwfomjbwgf[address] [place], [place] [address]Dr. Villa Yanes Astrovirus Not detected Normal NOT DETECTED [facility] Comment on above: Performed By: #### G IPANEL ####[facility] Zmhxzrrkjh32[address] [place], [place] [address]Dr. Villa Yanes C. Diff toxin A/B Not detected Normal NOT DETECTED [facility] Comment on above: Performed By: #### G IPANEL ####[facility] Yhertivdxs[address] [place], [place] [address]Dr. Villa Yanes Campylobacter Not detected Normal NOT DETECTED [facility] Comment on above: Performed By: #### G IPANEL ####[facility] Nmgwvgbrbv8938[address] [place], [place] [address]Dr. Villa Yanes Cryptosporidium Not detected Normal NOT DETECTED [facility] Comment on above: Performed By: #### G IPANEL ####[facility] Gonajkzyoi79[address] [place], [place] [address]Dr. Villa Yanes Cyclos. Cayetanensis Not detected Normal NOT DETECTED [facility] Comment on above: Performed By: #### G IPANEL ####[facility] Zuahxtzoij424[address] [place], [place] [address]Dr. karen Yanes E. Coli O157 Not Applicable Normal Not Applicable [facility] Comment on above: Performed By: #### G IPANEL ####[facility] Uhydegcibo3466[address] [place], [place] [address]Dr. Brooklynkaren Yanes E. histolytica Not detected Normal NOT DETECTED [facility] Comment on above: Performed By: #### G IPANEL ####[facility] Tuqceuyauy0824[address] [place], [place] [address]Dr. [facility] EAEC Not detected Normal NOT DETECTED [facility] Comment on above: Performed By: #### G IPANEL ####[facility] Yagzuvfiss57[address] [place], [place] [address]Dr. [facility] EIEC Not detected Normal NOT DETECTED [facility] Comment on above: Performed By: #### G IPANEL ####[facility] Yhcwjjefib560[address] [place], [place] [address]Dr. Brooklynkaren [facility] EPEC Not detected Normal NOT DETECTED [facility] Comment on above: Performed By: #### G IPANEL ####[facility] Qafiwqmprk5284[address] [place], [place] [address]Dr. karen Yanes ETEC Not detected Normal NOT DETECTED [facility] Comment on above: Performed By: #### G IPANEL ####[facility] Erbsdmsarb8853[address] [place], [place] [address]Dr. Villa Yanes G. Lamblia Not detected Normal NOT DETECTED [facility] Comment on above: Performed By: #### G IPANEL ####[facility] Jdyswlznrd5509[address] [place], [place] [address]Dr. Villa Yanes GIPANEL CONTROLS PASSED Normal [facility] Comment on above: Performed By: #### G IPANEL ####[facility] Qspnjlosxa6255[address] [place], [place] [address]Dr. Villa Yanes GIPNL MASSIMO HEADER GI PANEL BACTERIA Normal [facility] Comment on above: Performed By: #### G IPANEL ####[facility] Luoonskjii1336[address] [place], [place] [address]Dr. Villa Yanes [facility] ECOLI GI PANEL DIARRHEAGEN IC E.COLI / SHIGELLA Normal [facility] Comment on above: Performed By: #### G IPANEL ####[facility] Cedznpocwh6809[address] [place], [place] [address]Dr. Villa Yanes [facility] INFO SEE BELOW Normal [facility] Comment on above: Result Comment: EAEC - Enteroaggregative E. Coli EPEC- Enteropathogenic E. Coli ETEC- Enterotoxigenic E. Coli lt/st STEC- Shigella-like toxin-producing E. Coli stx1/stx2 EIEC- Shigella/Enteroinvasive E. Coli Performed By: #### G IPANEL ####[facility] Ordyeikvue10[address] [place], [place] [address]Dr. Villa Yanes GIPNLHD PARASITES GI PANEL PARASITES Normal [facility] Comment on above: Performed By: #### G IPANEL ####[facility] Ftxomhpvbc3108[address] [place], [place] [address]Dr. Villa Yanes [facility]IP[facility] VIRUS GI PANEL VIRUSES Normal [facility] Comment on above: Performed By: #### G IPANEL ####[facility] Dlwfoffxpn2851[address] [place], [place] [address]Dr. Villa Yanes Norovirus GI/GII Not detected Normal NOT DETECTED [facility] Comment on above: Performed By: #### G IPANEL ####[facility] Ovzqnwksve095[address] [place], [place] [address]Dr. Villa Yanes P. Shigelloides Not detected Normal NOT DETECTED [facility] Comment on above: Performed By: #### G IPANEL ####[facility] Lomubkmmxc7839[address] [place], [place] [address]Dr. Villa Yanes Rotavirus A Not detected Normal NOT DETECTED [facility] Comment on above: Performed By: #### G IPANEL ####[facility] Rglkuqexbp093[address] [place], [place] [address]Dr. Villa Yanes Salmonella Not detected Normal NOT DETECTED [facility] Comment on above: Performed By: #### G IPANEL ####[facility] Vlpwzxscwk[address] [place], [place] [address]Dr. Villa Yanes Sapovirus Not detected Normal NOT DETECTED [facility] Comment on above: Performed By: #### G IPANEL ####[facility] Emqxvfujdk7782[address] [place], [place] [address]Dr. Villa Yanes STEC Not detected Normal NOT DETECTED [facility] Comment on above: Performed By: #### G IPANEL ####[facility] Cbetmqtqfx5948[address] [place], [place] [address]Dr. Villa Yanes Vibrio Not detected Normal NOT DETECTED [facility] Comment on above: Performed By: #### G IPANEL ####[facility] Tkbgbhlgcr8293[address] [place], [place] [address]Dr. Villa Yanes Vibrio Cholera Not detected Normal NOT DETECTED [facility] Comment on above: Performed By: #### G IPANEL ####[facility] Ezkewevtcl1459[address] [place], [place] [address]Dr. Villa Yanes Y. Enterocolitica Not detected Normal NOT DETECTED [facility] Comment on above: Performed By: #### G IPANEL ####[facility] Llvkovxgoe4443[address] [place], [place] [address]Dr. Villa Joaquín BNPon 10-13-2021 Natriuretic peptide B (Bld) [Mass/Vol] 2844.0 pg/mL Critically high <=1,800.0 [facility] Comment on above: Result Comment: Test Repeated Critical Value Verified Performed By: #### C MP, BNP ####[facility] Tbzhpflyjt480[address] [place], [place] [address]Dr. Brooklynkraen Yanes CBC AUTO DIFFon 10-13-2021 BASO # 0.1 103/ul Normal 0.0-0.1 [facility] Comment on above: Performed By: #### C BC ####[facility] Rjgesnbtnz58[address] [place], [place] [address]Dr. Villa Yanes Basophils/100 WBC (Bld) 0.8 % Normal 0.2-2.0 [facility] Comment on above: Performed By: #### C BC ####[facility] Zivvmrdveo065[address] [place], [place] [address]Dr. Villa Yanes EO # 0.9 103/ul Critically high 0.0-0.7 [facility] Comment on above: Performed By: #### C BC ####[facility] Vnckfbsmnj7394 [place] [address]Dr. Villa Yanes Eosinophils/100 WBC (Bld) 7.8 % Critically high 0.9-7.0 [facility] Comment on above: Performed By: #### C BC ####[facility] Wdgypodxyj5639[address] [place], [place] [address]Dr. Villa Yanes Erythrocyte distribution width (RBC) [Ratio] 13.1 % Normal 11.0-15.0 [facility] Comment on above: Performed By: #### C BC ####[facility] Xhhicedsrn4309[address] [place], [place] [address]Dr. Villa Yanes Hematocrit (Bld) [Volume fraction] 29.3 % Critically low 42.0-54.0 [facility] Comment on above: Performed By: #### C BC ####[facility] Cymlajungv3695[address] [place], [place] [address]Dr. Villa Yanes Hemoglobin (Bld) [Mass/Vol] 9.3 g/dL Critically low 14.0-18.0 [facility] Comment on above: Performed By: #### C BC ####[facility] Oilfajkvcf2125[address] [place], [place] [address]Dr. Villa Joaquín IG # 0.18 10e3/ul Critically high 0.00-0.03 [facility] Comment on above: Performed By: #### C BC ####[facility] Havosfibyn3076[address] [place], [place] [address]Dr. Villa Joaquní IG % 1.5 % Critically high 0.0-0.5 [facility] Comment on above: Performed By: #### C BC ####[facility] Tupfpgstmc9[address] [place], [place] [address]Dr. Brooklynkaren Joaquín LYMPH # 1.7 103/ul Normal 1.2-3.8 [facility] Comment on above: Performed By: #### C BC ####[facility] Oqihvbesqs0748[address] [place], [place] [address]Dr. Villa Yanes Lymphocytes/100 WBC (Bld) 14.7 % Critically low 20.5-60.0 [facility] Comment on above: Performed By: #### C BC ####[facility] Yxyitpqjev5289 [place] [address]DrBrenden Yanes MANUAL DIFF REQ NO Normal [facility] Comment on above: Performed By: #### C BC ####[facility] Hyzcwqusuq6612 [place] [address]Dr. Villa Yanes MCH (RBC) [Entitic mass] 30.1 pg Normal 25.9-34.0 [facility] Comment on above: Performed By: #### C BC ####[facility] Odrzxpfhcc9923 [place] [address]Dr. Villa Yanes MCHC (RBC) [Mass/Vol] 31.7 g/dL Normal 29.9-35.2 [facility] Comment on above: Performed By: #### C BC ####[facility] Zhymrpfycm[address] [place], [place] [address]DrBrenden Yanes MCV (RBC) [Entitic vol] 94.8 fL Critically high 80.0-94.0 [facility] Comment on above: Performed By: #### C BC ####[facility] Yopakzqibn[address] [place], [place] [address]Dr. Villa Yanes MONO # 0.7 103/ul Normal 0.3-0.8 [facility] Comment on above: Performed By: #### C BC ####[facility] Ftppaxtpqz[address] [place], [place] [address]DrBrenden Yanes Monocytes/100 WBC (Bld) 6.1 % Normal 1.7-12.0 [facility] Comment on above: Performed By: #### C BC ####[facility] Acafbfrdmq[address] [place], [place] [address]DrBrenden Yanes NEUT # 8.1 103/ul Critically high 1.4-6.5 [facility] Comment on above: Performed By: #### C BC ####[facility] Keudycqkrx[address] [place], [place] [address]DrBrenden Yanes Neutrophils/100 WBC (Bld) 69.1 % Normal 43.0-75.0 [facility] Comment on above: Performed By: #### C BC ####[facility] Lzgagakotj9790 [place] [address]Dr. Villa Yanes Platelet mean volume (Bld) [Entitic vol] 9.7 fL Normal 9.5-13.5 [facility] Comment on above: Performed By: #### C BC ####[facility] Tnzvuwvmap0566 [place] [address]Dr. Villa Yanes PLT 408 103/ul Normal 150-450 [facility] Comment on above: Performed By: #### C BC ####[facility] Uqjoxgftso0759 [place] [address]Dr. Villa Yanes RBC 3.09 106/ul Critically low 4.70-6.10 [facility] Comment on above: Performed By: #### C BC ####[facility] Efszoadqji3523 [place] [address]Dr. Villa Yanes WBC 11.7 103/ul Critically high 4.0-11.0 [facility] Comment on above: Performed By: #### C BC ####[facility] Eahrpmrioa[address] [place], [place] [address]Dr. Villa Yanes POINT OF CARE GLUCOSEon 09-22 Glucose [Mass/Vol] 216 mg/dL Critically high 74-106 [facility] Comment on above: Performed By: #### P OCGLUC ####[facility] Yqxkfgezie6066 [place] [address]Dr. Villa Yanes Glucose [Mass/Vol] 217 mg/dL Critically high 74-106 [facility] Comment on above: Performed By: #### P OCGLUC ####[facility] Ivnwyyfoir1[address] [place], [place] [address]DrBrenden Villa Yanes PROF 14(COMP METB)on 022 Albumin [Mass/Vol] 2.0 g/dL Critically low 3.4-5.0 [facility] Comment on above: Performed By: #### C MP, BNP ####[facility] Uqgerkehbe9492 [place] [id number]. Villa Yanes Albumin/Globulin [Mass ratio] 0.5 {ratio} Normal [facility] Comment on above: Performed By: #### C MP, BNP ####[facility] Ljbqvnnajy2087 [place] [phone]. Villa Joaquín ALP [Catalytic activity/Vol] 122 U/L Critically high 46-116 [facility] Comment on above: Performed By: #### C MP, BNP ####[facility] Cytkeltbbp5819 [place] [phone]. Villa Joaquín ALT [Catalytic activity/Vol] 12 U/L Critically low 16-63 [facility] Comment on above: Performed By: #### C MP, BNP ####[facility] Fpvmzaapgo0951 [place] [address]Dr. Villa Yanes Anion gap [Moles/Vol] 11.6 mmol/L Normal [facility] Comment on above: Performed By: #### C MP, BNP ####[facility] Rhxqvubmba3640 [place] [address]Dr. Brooklynkaren Yanes AST [Catalytic activity/Vol] 7 U/L Critically low 15-37 [facility] Comment on above: Performed By: #### C MP, BNP ####[facility] Ideippntwq5752 [place] [address]Dr. Villa Yanes Bilirubin [Mass/Vol] 0.1 mg/dL Critically low 0.2-1.0 [facility] Comment on above: Performed By: #### C MP, BNP ####[facility] Aquvrnkghm5009 [place] [phone]. Villa Yanes Calcium [Mass/Vol] 8.3 mg/dL Critically low 8.5-10.1 [facility] Comment on above: Performed By: #### C MP, BNP ####[facility] Xvqgebwdwe4382 [place] [phone]. Villa Yanes Chloride [Moles/Vol] 100 mmol/L Normal 98-107 [facility] Comment on above: Performed By: #### C MP, BNP ####[facility] Qyskpfvjin9277 [place] [address]Dr. Villa Yanes CO2 [Moles/Vol] 28.5 mmol/L Normal 21.0-32.0 [facility] Comment on above: Performed By: #### C MP, BNP ####[facility] Efimpnqgsn8139 [place] [address]Dr. Villa Yanes Creatinine [Mass/Vol] 1.13 mg/dL Normal 0.70-1.30 [facility] Comment on above: Performed By: #### C MP, BNP ####[facility] Fhatfealrm58[address] [place], [place] [address]Dr. Villa Yanes EGFR-AF PAKISTANI >60 Normal >=60 [facility] Comment on above: Performed By: #### C MP, BNP ####[facility] Vsylizunyl7[address] [place], [place] [address]Dr. Villa Yanes EGFR-NON AF PAKISTANI >60 Normal >=60 [facility] Comment on above: Performed By: #### C MP, BNP ####[facility] Deqdxrwdhp7361 [place] [address]Dr. Villa Yanes Globulin (S) [Mass/Vol] 3.7 g/dL Normal [facility] Comment on above: Performed By: #### C MP, BNP ####[facility] Focufbtavb0819 [place] [address]Dr. Villa Yanes Glucose [Mass/Vol] 241 mg/dL Critically high 74-106 [facility] Comment on above: Performed By: #### C MP, BNP ####[facility] Myblwflcrn7362 [place] [address]Dr. Villa Yanes Potassium [Moles/Vol] 4.1 mmol/L Normal 3.5-5.1 [facility] Comment on above: Performed By: #### C MP, BNP ####[facility] Qpmaollzjo280[address] [place], [place] [address]Dr. Villa Yanes Protein [Mass/Vol] 5.7 g/dL Critically low 6.4-8.2 [facility] Comment on above: Performed By: #### C MP, BNP ####[facility] Xrakdqgyrj9523[address] [place], [place] [address]Dr. Villa Yanes Sodium [Moles/Vol] 136 mmol/L Normal 136-145 [facility] Comment on above: Performed By: #### C MP, BNP ####[facility] Pgtrhyhmkw635[address] [place], [place] [address]Dr. Villa Joaquín Urea nitrogen [Mass/Vol] 29.0 mg/dL Critically high 7.0-18.0 [facility] Comment on above: Performed By: #### C MP, BNP ####[facility] Mhsgtrgyte27[address] [place], [place] [address]Dr. Brooklynkaren Yanes Urea nitrogen/Creatinine [Mass ratio] 25.7 mg/mg Normal [facility] Comment on above: Performed By: #### C MP, BNP ####[facility] Crltlrqeob2688[address] [place], [place] [address]Dr. Villa Joaquín BNPon 10-12-2021 Natriuretic peptide B (Bld) [Mass/Vol] 4274.0 pg/mL Critically high <=1,800.0 [facility] Comment on above: Result Comment: Test Repeated. Critical Value Verified Performed By: #### B SEALER SANDER, CMP ####[facility] Rfnnzdhdfx6[address] [place], [place] [address]Dr. Villa Joaquín CBC AUTO DIFFon 10-12-2021 BASO # 0.1 103/ul Normal 0.0-0.1 [facility] Comment on above: Performed By: #### C BC ####[facility] Vmtszlbsnr04[address] [place], [place] [address]Dr. Villa Yanes Basophils/100 WBC (Bld) 0.6 % Normal 0.2-2.0 [facility] Comment on above: Performed By: #### C BC ####[facility] Fqfycxosij364[address] [place], [place] [address]Dr. Villa Yanes EO # 0.6 103/ul Normal 0.0-0.7 [facility] Comment on above: Performed By: #### C BC ####[facility] Clxgqkuaqq86[address] [place], [place] [id number]. Villa Yanes Eosinophils/100 WBC (Bld) 4.2 % Normal 0.9-7.0 [facility] Comment on above: Performed By: #### C BC ####[facility] Xtkomlowjh9648 [place] [address]Dr. Villa Yanes Erythrocyte distribution width (RBC) [Ratio] 12.9 % Normal 11.0-15.0 [facility] Comment on above: Performed By: #### C BC ####[facility] Zxavxxnvrb9036[address] [place], [place] [address]Dr. Villa Yanes Hematocrit (Bld) [Volume fraction] 31.5 % Critically low 42.0-54.0 [facility] Comment on above: Performed By: #### C BC ####[facility] Oofqoypkuo2914[address] [place], [place] [address]Dr. Villa Yanes Hemoglobin (Bld) [Mass/Vol] 9.9 g/dL Critically low 14.0-18.0 [facility] Comment on above: Performed By: #### C BC ####[facility] Eiplsfaezd8004[address] [place], [place] [address]Dr. Villa Yanes IG # 0.10 10e3/ul Critically high 0.00-0.03 [facility] Comment on above: Performed By: #### C BC ####[facility] Rtshmcddtu5[address] [place], [place] [address]Dr. Villa Yanes IG % 0.7 % Critically high 0.0-0.5 [facility] Comment on above: Performed By: #### C BC ####[facility] Rsaiolhtcq20[address] [place], [place] [address]Dr. Villa Yanes LYMPH # 1.9 103/ul Normal 1.2-3.8 [facility] Comment on above: Performed By: #### C BC ####[facility] Ymlrpodcsm07[address] [place], [place] [address]Dr. Villa Yanes Lymphocytes/100 WBC (Bld) 13.2 % Critically low 20.5-60.0 [facility] Comment on above: Performed By: #### C BC ####[facility] Ijcgvnwcau1646 [place] [id number]. Villa Yanes MANUAL DIFF REQ NO Normal [facility] Comment on above: Performed By: #### C BC ####[facility] Kfqnetinmg9863 [place] [phone]. Villa Yanes MCH (RBC) [Entitic mass] 30.1 pg Normal 25.9-34.0 [facility] Comment on above: Performed By: #### C BC ####[facility] Aelswkgcgt3689 [place] [address]Dr. Villa Yanes MCHC (RBC) [Mass/Vol] 31.4 g/dL Normal 29.9-35.2 [facility] Comment on above: Performed By: #### C BC ####[facility] Blyuaulvfq9078 [place] [address]Dr. Villa Yanes MCV (RBC) [Entitic vol] 95.7 fL Critically high 80.0-94.0 [facility] Comment on above: Performed By: #### C BC ####[facility] Jrebxhfveb[address] [place], [place] [address]Dr. Villa Joaquín MONO # 0.8 103/ul Normal 0.3-0.8 [facility] Comment on above: Performed By: #### C BC ####[facility] Amcjjrmqmo7208 [place] [address]Dr. Villa Joaquín Monocytes/100 WBC (Bld) 5.3 % Normal 1.7-12.0 [facility] Comment on above: Performed By: #### C BC ####[facility] Qisfhqrhgl5146 [place] [address]Dr. Villa Yanes NEUT # 10.9 103/ul Critically high 1.4-6.5 [facility] Comment on above: Performed By: #### C BC ####[facility] Qwommkbirt119[address] [place], [place] [address]Dr. Brooklynkaren Yanes Neutrophils/100 WBC (Bld) 76.0 % Critically high 43.0-75.0 [facility] Comment on above: Performed By: #### C BC ####[facility] Pxcsptfvkv5010 [place] [phone]. Villa Yanes Platelet mean volume (Bld) [Entitic vol] 9.6 fL Normal 9.5-13.5 [facility] Comment on above: Performed By: #### C BC ####[facility] Ofyattivlf1694 [place] [phone]. Villa Yanes PLT 372 103/ul Normal 150-450 [facility] Comment on above: Performed By: #### C BC ####[facility] Qycpidwykk3750 [place] [address]Dr. Villa Yanes RBC 3.29 106/ul Critically low 4.70-6.10 [facility] Comment on above: Performed By: #### C BC ####[facility] Asbptgiauu7978 [place] [address]Dr. Villa Yanes WBC 14.3 103/ul Critically high 4.0-11.0 [facility] Comment on above: Performed By: #### C BC ####[facility] Zfnixxipud3688 [place] [address]Dr. Villa Yanes POINT OF CARE GLUCOSEon 09-22 Glucose [Mass/Vol] 196 mg/dL Critically high 74-106 [facility] Comment on above: Performed By: #### P OCGLUC ####[facility] Ehnlvwyiaa5548 [place] [address]Dr. Villa Yanes Glucose [Mass/Vol] 222 mg/dL Critically high 74-106 [facility] Comment on above: Performed By: #### P OCGLUC ####[facility] Wkuravwbtm7554 [place] [address]Dr. Villa Yanes Glucose [Mass/Vol] 215 mg/dL Critically high 74-106 [facility] Comment on above: Performed By: #### P OCGLUC ####[facility] Sajbruglkl1332 [place] [address]Dr. Villa Yanes Glucose [Mass/Vol] 224 mg/dL Critically high -106 [facility] Comment on above: Performed By: #### P OCGLUC ####[facility] Ffujuqykih9279 [place] [address]Dr. Villa Yanes PROF 14(COMP METB)on 022 Albumin [Mass/Vol] 2.1 g/dL Critically low 3.4-5.0 [facility] Comment on above: Performed By: #### B SEALER SANDER, CMP ####[facility] Fubuqwbujy5934 [place] [address]Dr. Villa Yanes Albumin/Globulin [Mass ratio] 0.5 {ratio} Normal [facility] Comment on above: Performed By: #### B SEALER SANDER, CMP ####[facility] Eajtakuqtz0338 [place] [address]Dr. Villa Yanes ALP [Catalytic activity/Vol] 127 U/L Critically high 46-116 [facility] Comment on above: Performed By: #### B SEALER SANDER, CMP ####[facility] Rrsisnugqs2003[address] [place], [place] [address]Dr. Villa Yanes ALT [Catalytic activity/Vol] 12 U/L Critically low 16-63 [facility] Comment on above: Performed By: #### B SEALER SANDER, CMP ####[facility] Kkicjubmgj1652 [place] [address]Dr. Villa Yanes Anion gap [Moles/Vol] 11.4 mmol/L Normal [facility] Comment on above: Performed By: #### B SEALER SANDER, CMP ####[facility] Acmtwrfyys984[address] [place], [place] [address]Dr. Villa Yanes AST [Catalytic activity/Vol] 13 U/L Critically low 15-37 [facility] Comment on above: Performed By: #### B SEALER SANDER, CMP ####[facility] Uwkeifeuty345[address] [place], [place] [address]Dr. Villa Yanes Bilirubin [Mass/Vol] 0.1 mg/dL Critically low 0.2-1.0 [facility] Comment on above: Performed By: #### B SEALER SANDER, CMP ####[facility] Murqvqsnmd55[address] [place], [place] [address]Dr. Villa Yanes Calcium [Mass/Vol] 8.8 mg/dL Normal 8.5-10.1 [facility] Comment on above: Performed By: #### B SEALER SANDER, CMP ####[facility] Reynzrwbcz5246 [place] [address]Dr. Villa Yanes Chloride [Moles/Vol] 103 mmol/L Normal 98-107 [facility] Comment on above: Performed By: #### B SEALER SANDER, CMP ####[facility] Dgkljjyqwt9728 [place] [address]Dr. Villa Yanes CO2 [Moles/Vol] 28.4 mmol/L Normal 21.0-32.0 [facility] Comment on above: Performed By: #### B SEALER SANDER, CMP ####[facility] Pruxzbrbvq6425[address] [place], [place] [address]Dr. Villa Yanes Creatinine [Mass/Vol] 1.13 mg/dL Normal 0.70-1.30 [facility] Comment on above: Performed By: #### B SEALER SANDER, CMP ####[facility] Oevxgqqell026[address] [place], [place] [address]Dr. Villa Yanes EGFR-AF PAKISTANI >60 Normal >=60 [facility] Comment on above: Performed By: #### B SEALER SANDER, CMP ####[facility] Mivyuzydnh975[address] [place], [place] [address]Dr. Villa Yanes EGFR-NON AF PAKISTANI >60 Normal >=60 [facility] Comment on above: Performed By: #### B SEALER SANDER, CMP ####[facility] Saefkvmvad3192[address] [place], [place] [address]Dr. Villa Yanes Globulin (S) [Mass/Vol] 3.9 g/dL Normal [facility] Comment on above: Performed By: #### B SEALER SANDER, CMP ####[facility] Sdxvfninaq6905 [place] [address]Dr. Villa Yanes Glucose [Mass/Vol] 151 mg/dL Critically high 74-106 [facility] Comment on above: Performed By: #### B SEALER SANDER, CMP ####[facility] Kmnauxhrrh5706[address] [place], [place] [address]Dr. Villa Yanes Potassium [Moles/Vol] 3.8 mmol/L Normal 3.5-5.1 [facility] Comment on above: Performed By: #### B SEALER SANDER, CMP ####[facility] Bvtbxvbjra2951 [place] [address]Dr. Brooklynkaren Yanes Protein [Mass/Vol] 6.0 g/dL Critically low 6.4-8.2 Th e [facility] Comment on above: Performed By: #### B SEALER SANDER, CMP ####[facility] Lkkjqmcxvx0097[address] [place], [place] [address]Dr. Villa Yanes Sodium [Moles/Vol] 139 mmol/L Normal 136-145 [facility] Comment on above: Performed By: #### B SEALER SANDER, CMP ####[facility] Rulcgckyul0996[address] [place], [place] [address]Dr. Villa Yanes Urea nitrogen [Mass/Vol] 28.0 mg/dL Critically high 7.0-18.0 [facility] Comment on above: Performed By: #### B SEALER SANDER, CMP ####[facility] Mpaduoicuf4456[address] [place], [place] [address]Dr. Villa Yanes Urea nitrogen/Creatinine [Mass ratio] 24.8 mg/mg Normal [facility] Comment on above: Performed By: #### B SEALER SANDER, CMP ####[facility] Zjnvfusmgd0858[address] [place], [place] [address]Dr. Brooklynkaren Joaquín BNPon 10-11-2021 Natriuretic peptide B (Bld) [Mass/Vol] 1770.0 pg/mL Normal <=1,800.0 [facility] Comment on above: Performed By: #### C MP, BNP ####[facility] Qhtfeyjdok9[address] [place], [place] [address]Dr. Villa Yanes CBC W MANUAL DIFFon 10-12-19 22 ATYPICAL LYMPH # Normal [facility] Comment on above: Performed By: #### C BCMAN ####[facility] Loxdsukqgb3285[address] [place], [place] [address]Dr. Villa Yanes ATYPICAL LYMPH % Normal [facility] Comment on above: Performed By: #### C BCMAN ####[facility] Zrbujywhyk4675[address] [place], [place] [address]Dr. Villa Yanes BAND # 0.3 103/ul Normal 0.0-0.3 [facility] Comment on above: Performed By: #### C BCMAN ####[facility] Dufoopmhfd3952 [place] [address]Dr. Villa Yanes BAND % 2 % Normal 0-5 [facility] Comment on above: Performed By: #### C BCMAN ####[facility] Ysytelvobs9740 [place] [id number]. Yikaren Yanes BASOM # 0.00 103/ul Normal 0.00-0.10 [facility] Comment on above: Performed By: #### C BCMAN ####[facility] Fwuunxxrkl2507 [place] [address]Dr. Villa Yanes BASOM % 0.0 % Critically low 0.2-2.0 [facility] Comment on above: Performed By: #### C BCMARLENA ####[facility] Ujxikdmeza[address] [place], [place] [address]Dr. Villa Yanes BLAST # Normal [facility] Comment on above: Performed By: #### C BCMARLENA ####[facility] Elecnvinaa17[address] [place], [place] [address]Dr. Villa Yanes BLAST % Normal [facility] Comment on above: Performed By: #### C BCMARLENA ####[facility] Qrwpchgbfc0867[address] [place], [place] [address]Dr. Villa Yanes CORRECTED WBC Normal 4.0-11.0 [facility] Comment on above: Performed By: #### C BCMARLENA ####[facility] Ppfxgcdyaj084[address] [place], [place] [address]Dr. Yikaren Yanes EOS # 0.00 103/ul Normal 0.00-0.70 [facility] Comment on above: Performed By: #### C BCMARLENA ####[facility] Vgpeqpqszj7[address] [place], [place] [address]Dr. Villa Yanes EOS% 0.0 % Critically low 0.9-7.0 [facility] Comment on above: Performed By: #### C BCMAN ####[facility] Qhkcvyukxh8432[address] [place], [place] [address]Dr. Villa Yanes HCT 28.9 % Critically low 42.0-54.0 [facility] Comment on above: Performed By: #### C ESTEFANIA ####[facility] Wvecanzcbp7022 [place] [id number]. Villa Yanes HGB 9.0 g/dl Critically low 14.0-18.0 [facility] Comment on above: Performed By: #### C ESTEFANIA ####[facility] Qtpyieksuc2743 [place] [address]Dr. Villa Yanes LYMPHM # 0.77 103/ul Critically low 1.20-3.80 [facility] Comment on above: Performed By: #### C ESTEFANIA ####[facility] Vxwdpgdnwm2475 [place] [address]Dr. Villa Yanes LYMPHM% 5.0 % Critically low 20.5-60.0 [facility] Comment on above: Performed By: #### C ESTEFANIA ####[facility] Sitsdyciav6755 [place] [address]Dr. Villa Yanes MCH 29.7 pg Normal 25.9-34.0 [facility] Comment on above: Performed By: #### C ESTEFANIA ####[facility] Lvpfxvbxpc7432 [place] [address]Dr. Villa Yanes MCHC 31.1 g/dl Normal 29.9-35.2 [facility] Comment on above: Performed By: #### C ESTEFANIA ####[facility] Lnrzdttgjw3643 [place] [address]Dr. Villa Yanes MCV 95.4 fL Critically high 80.0-94.0 [facility] Comment on above: Performed By: #### C BCMARLENA ####[facility] Zxwaicvedz5871 [place], [place] [address]Tu. Villa Yanes METAMYELOCYTE # Normal [facility] Comment on above: Performed By: #### C BCMARLENA ####[facility] Sewasvrqkl3161 [place], [place] [address]Ne. Villa Yanes METAMYELOCYTE % Normal [facility] Comment on above: Performed By: #### C BCMARLENA ####[facility] Zwuktmmoqd3311 [place] [phone]. Villa Yanes MONOM# 0.46 103/ul Normal 0.30-0.80 [facility] Comment on above: Performed By: #### C ESTEFANIA ####[facility] Fxryvqdden4888 [place] [address]Dr. Villa Yanes MONOM% 3.0 % Normal 1.7-12.0 [facility] Comment on above: Performed By: #### C ESTEFANIA ####[facility] Silplfebxb5419 [place] [phone]. Villa Yanes MPV 10.1 fL Normal 9.5-13.5 [facility] Comment on above: Performed By: #### Awilda MAC ####[facility] Bauneehqae[address] [place], [place] [address]Dr. Villa Yanes MYELOCYTE # Normal [facility] Comment on above: Performed By: #### Awilda MAC ####[facility] Vhhowiukrc[address] [place], [place] [address]Dr. Villa Yanes MYELOCYTE % Normal [facility] Comment on above: Performed By: #### Awilda MAC ####[facility] Cudnmggirt84[address] [place], [place] [address]Dr. Villa Yanes NRBC Normal [facility] Comment on above: Performed By: #### Awilda MAC ####[facility] Arvyqxuhxn6209 [place] [id number]. Villa Yanes PLT 361 103/ul Normal 150-450 [facility] Comment on above: Performed By: #### C ESTEFANIA ####[facility] Ixmxpxdiqk2138 [place] [address]Dr. Villa Yanes RBC 3.03 106/ul Critically low 4.70-6.10 [facility] Comment on above: Performed By: #### C ESTEFANIA ####[facility] Vqmwwwqvtl8596 [place] [address]Dr. Villa Yanes RDW 12.9 % Normal 11.0-15.0 [facility] Comment on above: Performed By: #### Awilda MAC ####[facility] Erabbhandl8939 [place] [id number]. Villa Yanes SEG # 13.86 103/ul Critically high 1.40-6.50 [facility] Comment on above: Performed By: #### C BCMAN ####[facility] [address] [place] [id number]. Villa Yanes SEG % 90.0 % Critically high 43.0-75.0 [facility] Comment on above: Performed By: #### C BCMAN ####[facility] Qadjdnjgfk4[address] [place] [id number]. Villa Yanes WBC 15.4 103/ul Critically high 4.0-11.0 [facility] Comment on above: Performed By: #### C BCMAN ####[facility] Cmknhqyl[address] [place] [address]Dr. Villa Yanes POINT OF CARE GLUCOSEon 09-22 Glucose [Mass/Vol] 214 mg/dL Critically high 74-106 [facility] Comment on above: Performed By: #### P OCGLUC ####[facility] Nfzhjexlgc[address] [place] [address]Dr. Villa Joaquín Glucose [Mass/Vol] 185 mg/dL Critically high 74-106 [facility] Comment on above: Performed By: #### P OCGLUC ####[facility] Xrwklwoxwa4380 [place] [address]Dr. Villa Yanes Glucose [Mass/Vol] 224 mg/dL Critically high 74-106 [facility] Comment on above: Performed By: #### P OCGLUC ####[facility] Xxopgutyho[address] [place] [address]Dr. Villa Yanes Glucose [Mass/Vol] 273 mg/dL Critically high 74-106 [facility] Comment on above: Performed By: #### P OCGLUC ####[facility] Ggusddlfqy[address] [place], [place] [address]Dr. Villa Yanes PROF 14(COMP METB)on 022 Albumin [Mass/Vol] 1.9 g/dL Critically low 3.4-5.0 [facility] Comment on above: Performed By: #### C MP, BNP ####[facility] A[address]bsj[address]of[address] [place] [id number]. Villa Yanes Albumin/Globulin [Mass ratio] 0.5 {ratio} Normal [facility] Comment on above: Performed By: #### C MP, BNP ####[facility] Amggqyzwjg[address] [place] [address]Dr. Villa Yanes ALP [Catalytic activity/Vol] 153 U/L Critically high 46-116 [facility] Comment on above: Performed By: #### C MP, BNP ####[facility] Tazsuvulfz[address] [place] [address]Dr. Villa Yanes ALT [Catalytic activity/Vol] 9 U/L Critically low 16-63 [facility] Comment on above: Performed By: #### C MP, BNP ####[facility] Naavpqzjlh[address] [place] [address]Dr. Villa Yanes Anion gap [Moles/Vol] 12.0 mmol/L Normal [facility] Comment on above: Performed By: #### C MP, BNP ####[facility] Eevoxmlzef5308 [place] [address]Dr. Villa Yanes AST [Catalytic activity/Vol] 10 U/L Critically low 15-37 [facility] Comment on above: Performed By: #### C MP, BNP ####[facility] Pnlzvtuwgc5406 [place] [address]Dr. Villa Yanes Bilirubin [Mass/Vol] 0.1 mg/dL Critically low 0.2-1.0 [facility] Comment on above: Performed By: #### C MP, BNP ####[facility] Ppipaujaqz37[address] [place] [phone]. Villa Yanes Calcium [Mass/Vol] 8.4 mg/dL Critically low 8.5-10.1 [facility] Comment on above: Performed By: #### C MP, BNP ####[facility] Kevlbypzrv10[address] [place] [address]Dr. Villa Yanes Chloride [Moles/Vol] 100 mmol/L Normal 98-107 [facility] Comment on above: Performed By: #### C MP, BNP ####[facility] Izpunavyfw5583 [place] [address]Dr. Villa Joaquín CO2 [Moles/Vol] 27.3 mmol/L Normal 21.0-32.0 [facility] Comment on above: Performed By: #### C MP, BNP ####[facility] Kbekdhtpdz98[address] [place] [address]Dr. Villa Yanes Creatinine [Mass/Vol] 1.40 mg/dL Critically high 0.70-1.30 [facility] Comment on above: Performed By: #### C MP, BNP ####[facility] Fbpuedfppg[address] [place], [place] [address]Dr. Villa Yanes EGFR-AF PAKISTANI 59 mL/min/1.73m2 Critically low >=60 [facility] Comment on above: Performed By: #### C MP, BNP ####[facility] Kwkhuyrizs[address] [place], [place] [address]Dr. Villa Yanes EGFR-NON AF PAKISTANI 49 mL/min/1.73m2 Critically low >=60 [facility] Comment on above: Performed By: #### C MP, BNP ####[facility] Cmrjayqfuk9[address] [place], [place] [address]Dr. Villa Yanes Globulin (S) [Mass/Vol] 4.0 g/dL Normal [facility] Comment on above: Performed By: #### C MP, BNP ####[facility] Cnjgfroedf9[address] [place], [place] [address]Dr. Villa Yanes Glucose [Mass/Vol] 353 mg/dL Critically high 74-106 [facility] Comment on above: Performed By: #### C MP, BNP ####[facility] Xzqgmrslof2[address] [place], [place] [address]Dr. Villa Yanes Potassium [Moles/Vol] 4.3 mmol/L Normal 3.5-5.1 [facility] Comment on above: Performed By: #### C MP, BNP ####[facility] Twhznfjwet20[address] [place], [place] [address]Dr. Villa Yanes Protein [Mass/Vol] 5.9 g/dL Critically low 6.4-8.2 [facility] Comment on above: Performed By: #### C MP, BNP ####[facility] Mfgnotraff01[address] [place], [place] [address]Dr. Villa Yanes Sodium [Moles/Vol] 135 mmol/L Critically low 136-145 [facility] Comment on above: Performed By: #### C MP, BNP ####[facility] Ozkzhirrdh5[address] [place], [place] [address]Dr. Villa Yanes Urea nitrogen [Mass/Vol] 39.0 mg/dL Critically high 7.0-18.0 [facility] Comment on above: Performed By: #### C MP, BNP ####[facility] Zeshjrnxyr[address] [place], [place] [address]Dr. Villa Yanes Urea nitrogen/Creatinine [Mass ratio] 27.9 mg/mg Normal [facility] Comment on above: Performed By: #### C MP, BNP ####[facility] Ijbrsuzjey[address] [place], [place] [address]Dr. Villa Yanes XR CHEST 2 Von 10-11-2021 XR CHEST 2 V Normal [facility] AMMONIAon 10-10-2021 Ammonia (P) [Moles/Vol] 20 umol/L Normal 11-32 [facility] Comment on above: Performed By: #### A MM ####[facility] Szkjhthepl[address] [place], [place] [address]Dr. Villa Yanes BNPon 10-10-2021 Natriuretic peptide B (Bld) [Mass/Vol] 1137.0 pg/mL Normal <=1,800.0 [facility] Comment on above: Performed By: #### C MADM, BNP ####[facility] Deyhhumhrb[address] [place], [place] [address]Dr. Brooklynkaren Joaquín Natriuretic peptide B (Bld) [Mass/Vol] 1263.0 pg/mL Normal <=1,800.0 [facility] Comment on above: Performed By: #### C MP, BNP ####[facility] Ugshlxcuvw32[address] [place], [place] [address]Dr. Villa Yanes CARDIAC ANAMARIA ADMITon 022 CK [Catalytic activity/Vol] 13 U/L Critically low 39-308 [facility] Comment on above: Performed By: #### C MADM, BNP ####[facility] Rawpnkkftt8363 [place] [address]Dr. Villa Yanes CK.MB [Mass/Vol] ng/mL Normal <=3.60 [facility] Comment on above: Performed By: #### C MADM, BNP ####[facility] Ydlerlmftx99[address] [place] [address]Dr. Villa Yanes HSTROP 9.1 pg/mL Normal 4.0-76.1 [facility] Comment on above: Result Comment: CUT- OFF POINTS HAVE BEEN ESTABLISHED BASED ON THE FOURTH UNIVERSAL DEFINITIONS OF MYOCARDIALINFARCTION. THE UPPER REFERENCE LIMIT (URL) OF TROPONIN, DEFINED THE 99TH PERCENTILE OFcTnI DISTRIBUTION IN A REFERENCE POPULATION, HAS BEEN CONFIRMED THE DECISION THRESHOLDFOR GA DIAGNOSIS. Performed By: #### C MADM, BNP ####[facility] Jkmgzcogor32[address] [place] [address]Dr. Villa Joaquín JULIA 52 ng/mL Normal 16-96 [facility] Comment on above: Performed By: #### C MADM, BNP ####[facility] Dwafjfxuxk[address] [place] [address]Dr. Villa Joaquín CBC AUTO DIFFon 10-10-2021 BASO # 0.1 103/ul Normal 0.0-0.1 [facility] Comment on above: Performed By: #### C BC ####[facility] K[address]uglzodbr[address] [place] [address]Dr. Villa Joaquín Basophils/100 WBC (Bld) 0.3 % Normal 0.2-2.0 [facility] Comment on above: Performed By: #### C BC ####[facility] Yhtfkjudft2[address] [place] [address]Dr. Villa Yanes EO # 0.2 103/ul Normal 0.0-0.7 [facility] Comment on above: Performed By: #### C BC ####[facility] Vexhvndhry[address] [place] [address]Dr. Villa Yanes Eosinophils/100 WBC (Bld) 1.1 % Normal 0.9-7.0 [facility] Comment on above: Performed By: #### C BC ####[facility] Lkyjmoagou[address] [place], [place] [address]Dr. Villa Yanes Erythrocyte distribution width (RBC) [Ratio] 13.2 % Normal 11.0-15.0 [facility] Comment on above: Performed By: #### C BC ####[facility] Bblvxdmtwd[address] [place], [place] [address]Dr. Villa Yanes Hematocrit (Bld) [Volume fraction] 29.2 % Critically low 42.0-54.0 [facility] Comment on above: Performed By: #### C BC ####[facility] Jgvraazynd[address] [place], [place] [address]Dr. Villa Yanes Hemoglobin (Bld) [Mass/Vol] 9.3 g/dL Critically low 14.0-18.0 [facility] Comment on above: Performed By: #### C BC ####[facility] Ehdrschyca[address] [place], [place] [address]Dr. Villa Yanes IG # 0.11 10e3/ul Critically high 0.00-0.03 [facility] Comment on above: Performed By: #### C BC ####[facility] Votawjppbd[address] [place], [place] [address]Dr. Villa Yanes IG % 0.7 % Critically high 0.0-0.5 [facility] Comment on above: Performed By: #### C BC ####[facility] Vsuzogktby[address] [place], [place] [address]Dr. Villa Yanes LYMPH # 1.0 103/ul Critically low 1.2-3.8 [facility] Comment on above: Performed By: #### C BC ####[facility] Phjzzktsve[address] [place], [place] [address]Dr. Villa Yanes Lymphocytes/100 WBC (Bld) 6.4 % Critically low 20.5-60.0 [facility] Comment on above: Performed By: #### C BC ####[facility] [address]wh[address]fon[address] [place] [id number]. Villa Yanes MANUAL DIFF REQ NO Normal [facility] Comment on above: Performed By: #### C BC ####[facility] Ltabpedksb7159 [place] [id number]. Villa Yanes MCH (RBC) [Entitic mass] 30.2 pg Normal 25.9-34.0 [facility] Comment on above: Performed By: #### C BC ####[facility] Lkqozehikx6303 [place] [address]Dr. Villa Yanes MCHC (RBC) [Mass/Vol] 31.8 g/dL Normal 29.9-35.2 [facility] Comment on above: Performed By: #### C BC ####[facility] Jvwfazgbzx499[address] [place] [address]Dr. Villa Yanes MCV (RBC) [Entitic vol] 94.8 fL Critically high 80.0-94.0 [facility] Comment on above: Performed By: #### C BC ####[facility] [address] [place], [place] [address]Dr. Villa Joaquín MONO # 0.9 103/ul Critically high 0.3-0.8 [facility] Comment on above: Performed By: #### C BC ####[facility] Nrhlfjpbjd[address] [place], [place] [address]Dr. Brooklynkaren Yanes Monocytes/100 WBC (Bld) 5.4 % Normal 1.7-12.0 [facility] Comment on above: Performed By: #### C BC ####[facility] Yjfdpamyed5636 [place] [id number]. Villa Yanes NEUT # 13.7 103/ul Critically high 1.4-6.5 [facility] Comment on above: Performed By: #### C BC ####[facility] Euvftcxefl[address] [place], [place] [address]Dr. Brooklynkaren Yanes Neutrophils/100 WBC (Bld) 86.1 % Critically high 43.0-75.0 [facility] Comment on above: Performed By: #### C BC ####[facility] Zxrvsokujc9096 [place] [phone]. Villa Yanes Platelet mean volume (Bld) [Entitic vol] 10.5 fL Normal 9.5-13.5 [facility] Comment on above: Performed By: #### C BC ####[facility] Ldiylrpqva7973 [place] [address]Dr. Villa Yanes PLT 293 103/ul Normal 150-450 [facility] Comment on above: Performed By: #### C BC ####[facility] Swyhiqslkq7[address] [place] [address]Dr. Villa Yanes RBC 3.08 106/ul Critically low 4.70-6.10 [facility] Comment on above: Performed By: #### C BC ####[facility] Rprlomaeqv5636 [place] [address]Dr. Villa Yanes WBC 15.9 103/ul Critically high 4.0-11.0 [facility] Comment on above: Performed By: #### C BC ####[facility] Xquqncmbot6665 [place] [address]Dr. Villa Yanes CULTURE URINEon 10-10-2021 CULTURE URINE Culture Observations : No growth Normal [facility] Comment on above: Performed By: #### U RCX ####[facility] Qkrlgdsdyi8761 [place] [phone]. Villa Yanes POINT OF CARE GLUCOSEon 09-22 Glucose [Mass/Vol] 214 mg/dL Critically high 74-106 [facility] Comment on above: Performed By: #### P OCGLUC ####[facility] Yxxuzlpswy8012 [place] [id number]. Villa Yanes Glucose [Mass/Vol] 309 mg/dL Critically high 74-106 [facility] Comment on above: Performed By: #### P OCGLUC ####[facility] Imvsvrebri8367 [place] [phone]. Villa Yanes Glucose [Mass/Vol] 196 mg/dL Critically high 74-106 [facility] Comment on above: Performed By: #### P OCGLUC ####[facility] Tdsmvrbmor8337 [place] [address]Dr. Villa Yanes Glucose [Mass/Vol] 185 mg/dL Critically high 74-106 [facility] Comment on above: Performed By: #### P OCGLUC ####[facility] Bdykwgpivm4811 [place] [address]Dr. Villa Yanes PROF 14(COMP METB)on 022 Albumin [Mass/Vol] 1.7 g/dL Critically low 3.4-5.0 [facility] Comment on above: Performed By: #### C MP, BNP ####[facility] Sgsrdeiivf8932 [place] [address]Dr. Villa Yanes Albumin/Globulin [Mass ratio] 0.4 {ratio} Normal [facility] Comment on above: Performed By: #### C MP, BNP ####[facility] Rdwwkbzedl6351 [place] [address]Dr. Villa Yanes ALP [Catalytic activity/Vol] 127 U/L Critically high 46-116 [facility] Comment on above: Performed By: #### C MP, BNP ####[facility] Xmkhppmjxk3209 [place] [address]Dr. Villa Yanes ALT [Catalytic activity/Vol] 6 U/L Critically low 16-63 [facility] Comment on above: Performed By: #### C MP, BNP ####[facility] Sqncrynnom4835 [place] [address]Dr. Villa Yanes Anion gap [Moles/Vol] 11.6 mmol/L Normal [facility] Comment on above: Performed By: #### C MP, BNP ####[facility] Zsnlkqzerl8165 [place] [address]Dr. Villa Yanes AST [Catalytic activity/Vol] 15 U/L Normal 15-37 [facility] Comment on above: Performed By: #### C MP, BNP ####[facility] Gztawkjizm8417 [place] [address]Dr. Villa Yanes Bilirubin [Mass/Vol] 0.2 mg/dL Normal 0.2-1.0 [facility] Comment on above: Performed By: #### C MP, BNP ####[facility] Iazftoejuy5292 [place] [address]Dr. Villa Yanes Calcium [Mass/Vol] 8.4 mg/dL Critically low 8.5-10.1 [facility] Comment on above: Performed By: #### C MP, BNP ####[facility] Zsslsqzhdr[address] [place], [place] [address]Dr. Villa Yanes Chloride [Moles/Vol] 101 mmol/L Normal 98-107 [facility] Comment on above: Performed By: #### C MP, BNP ####[facility] Uovrcffjav079[address] [place], [place] [address]Dr. Villa Yanes CO2 [Moles/Vol] 26.3 mmol/L Normal 21.0-32.0 [facility] Comment on above: Performed By: #### C MP, BNP ####[facility] Zqhwnobwgb8[address] [place], [place] [address]Dr. Villa Yanes Creatinine [Mass/Vol] 1.57 mg/dL Critically high 0.70-1.30 [facility] Comment on above: Performed By: #### C MP, BNP ####[facility] Zdirapoczk05[address] [place], [place] [address]Dr. Villa Yanes EGFR-AF PAKISTANI 52 mL/min/1.73m2 Critically low >=60 [facility] Comment on above: Performed By: #### C MP, BNP ####[facility] Znzuahlhvn[address] [place], [place] [address]Dr. Villa Yanes EGFR-NON AF PAKISTANI 43 mL/min/1.73m2 Critically low >=60 [facility] Comment on above: Performed By: #### C MP, BNP ####[facility] Mqwcmyupuf[address] [place], [place] [address]Dr. Villa Yanes Globulin (S) [Mass/Vol] 4.1 g/dL Normal [facility] Comment on above: Performed By: #### C MP, BNP ####[facility] Ncjjtaiqig74[address] [place], [place] [address]Dr. Villa Joaquín Glucose [Mass/Vol] 243 mg/dL Critically high 74-106 [facility] Comment on above: Performed By: #### C MP, BNP ####[facility] Jrmoqgecel5[address] [place], [place] [address]Dr. Villa Yanes Potassium [Moles/Vol] 3.9 mmol/L Normal 3.5-5.1 [facility] Comment on above: Performed By: #### C MP, BNP ####[facility] Tjurhtfrfy16[address] [place], [place] [address]Dr. Villa Yanes Protein [Mass/Vol] 5.8 g/dL Critically low 6.4-8.2 [facility] Comment on above: Performed By: #### C MP, BNP ####[facility] Xnyrvqopjc8315[address] [place], [place] [address]Dr. Villa Yanes Sodium [Moles/Vol] 135 mmol/L Critically low 136-145 [facility] Comment on above: Performed By: #### C MP, BNP ####[facility] Epjrixeisx627[address] [place], [place] [address]Dr. iVlla Yanes Urea nitrogen [Mass/Vol] 35.0 mg/dL Critically high 7.0-18.0 [facility] Comment on above: Performed By: #### C MP, BNP ####[facility] Hqawsmqmqf95[address] [place], [place] [address]Dr. Villa Yanes Urea nitrogen/Creatinine [Mass ratio] 22.3 mg/mg Normal [facility] Comment on above: Performed By: #### C MP, BNP ####[facility] Vwrdfkhlfn[address] [place], [place] [address]Dr. Villa Yanes UA RANDOM W/MICROSCOPICon BACTERIA NONE SEEN Normal NONE SEEN [facility] Comment on above: Performed By: #### U AMIC ####[facility] Gvgjkxdrrj8[address] [place], [place] [address]Dr. Villa Yanes Bilirubin Ql (U) Negative Normal NEGATIVE [facility] Comment on above: Performed By: #### U AMIC ####[facility] Zndcbgabwn[address] [place], [place] [address]Dr. Villa Yanes CAST NONE SEEN Normal NONE SEEN [facility] Comment on above: Performed By: #### U AMIC ####[facility] Scgsqmcjjm1143[address] [place], [place] [address]Dr. Villa Yanes Clarity (U) CLEAR Normal CLEAR [facility] Comment on above: Performed By: #### U AMIC ####[facility] Gjhehbzvui28[address] [place], [place] [address]Dr. Villa Yanes Color (U) YELLOW Normal YELLOW [facility] Comment on above: Performed By: #### U AMIC ####[facility] Dxbnoujzwo70[address] [place], [place] [address]Dr. Villa Yanes Crystals LM Nom (Urine sed) NONE SEEN Normal NONE SEEN [facility] Comment on above: Performed By: #### U AMIC ####[facility] Upbwctvefu3883[address] [place], [place] [address]Dr. Villa Yanes Epithelial cells LM Ql (Urine sed) RARE Normal NONE SEEN /RARE [facility] Comment on above: Performed By: #### U AMIC ####[facility] Glgybshuwo9674[address] [place], [place] [address]Dr. Villa Yanes Glucose Ql (U) Negative Normal NEGATIVE [facility] Comment on above: Performed By: #### U AMIC ####[facility] Nbxmrluoad1294[address] [place], [place] [address]Dr. Villa Yanes Hemoglobin Ql (U) Negative Normal NEGATIVE [facility] Comment on above: Performed By: #### U AMIC ####[facility] Dcpggylypz[address] [place], [place] [address]Dr. Villa Yanes Ketones Ql (U) Negative Normal NEGATIVE [facility] Comment on above: Performed By: #### U AMIC ####[facility] Jgatbkfavw365[address] [place], [place] [address]Dr. Brooklynlan Yanes LEUKOCYTES Negative Normal NEGATIVE [facility] Comment on above: Performed By: #### U AMIC ####[facility] Beytezwlwr07[address] [place], [place] [address]Dr. Yilan Yanes MUCOUS NONE SEEN Normal NONE SEEN [facility] Comment on above: Performed By: #### U AMIC ####[facility] Dgypkmxtbf3120 [place] [address]Dr. Villa Yanes Nitrite Ql (U) Negative Normal NEGATIVE [facility] Comment on above: Performed By: #### U AMIC ####[facility] Seuulkmooy0282 [place] [address]Dr. Villa Yanes pH (U) 5.5 [pH] Normal 5-9 [facility] Comment on above: Performed By: #### U AMIC ####[facility] Jisuoqfpop[address] [place], [place] [address]Dr. Villa Yanes RBC 2-5 Abnormal 0-2 [facility] Comment on above: Performed By: #### U AMIC ####[facility] Kmlsbvudlg14[address] [place], [place] [address]Dr. Villa aYnes SPEC GRAVITY 1.025 Normal 1.005-<=1.0 25 [facility] Comment on above: Performed By: #### U AMIC ####[facility] Tvfjdfukmd[address] [place], [place] [address]Dr. Villa Yanes UA PROTEIN 100 mg/dl Abnormal NEGATIVE/ TRACE [facility] Comment on above: Performed By: #### U AMIC ####[facility] Iceopnkewm88[address] [place], [place] [address]Dr. Villa Joaquín Urobilinogen Qn (U) 0.2 {Mackenzie'U}/dL Normal 0.2 - 1. 0 [facility] Comment on above: Performed By: #### U AMIC ####[facility] Iscrkaumew[address] [place], [place] [address]Dr. Villa Yanes WBC NONE SEEN Normal NONE SEEN [facility] Comment on above: Performed By: #### U AMIC ####[facility] Jqthpxgiuk82[address] [place], [place] [address]Dr. Brooklynkaren Yanes BNPon 10-09-2021 Natriuretic peptide B (Bld) [Mass/Vol] 1670.0 pg/mL Normal <=1,800.0 [facility] Comment on above: Performed By: #### B SEALER SANDER, CMP ####[facility] [address] [place] [address]Dr. Villa Yanes CBC AUTO DIFFon 10-09-2021 BASO # 0.1 103/ul Normal 0.0-0.1 [facility] Comment on above: Performed By: #### C BC ####[facility] Lrxypnriqd[address] [place], [place] [address]Dr. Villa Yanes Basophils/100 WBC (Bld) 0.3 % Normal 0.2-2.0 [facility] Comment on above: Performed By: #### C BC ####[facility] Aspqcpsxvm8089[address] [place], [place] [address]Dr. Villa Yanes EO # 0.2 103/ul Normal 0.0-0.7 [facility] Comment on above: Performed By: #### C BC ####[facility] Niihifgknn90[address] [place], [place] [address]Dr. Brooklynkaren Yanes Eosinophils/100 WBC (Bld) 1.1 % Normal 0.9-7.0 [facility] Comment on above: Performed By: #### C BC ####[facility] Zmrxppjzgh156[address] [place], [place] [address]Dr. Villa Yanes Erythrocyte distribution width (RBC) [Ratio] 12.9 % Normal 11.0-15.0 [facility] Comment on above: Performed By: #### C BC ####[facility] Gtopozhpup[address] [place], [place] [address]Dr. Villa Yanes Hematocrit (Bld) [Volume fraction] 32.6 % Critically low 42.0-54.0 [facility] Comment on above: Performed By: #### C BC ####[facility] Gvetwsynzh[address] [place], [place] [address]Dr. Villa Yanes Hemoglobin (Bld) [Mass/Vol] 10.4 g/dL Critically low 14.0-18.0 [facility] Comment on above: Performed By: #### C BC ####[facility] Xhvsixexxe4636[address] [place], [place] [address]Dr. Brooklynkaren Yanes IG # 0.13 10e3/ul Critically high 0.00-0.03 [facility] Comment on above: Performed By: #### C BC ####[facility] [address]bspt[address] [place] [id number]. Villa Yanes IG % 0.9 % Critically high 0.0-0.5 [facility] Comment on above: Performed By: #### C BC ####[facility] Fzvubzfghy[address] [place] [address]Dr. Villa Yanes LYMPH # 1.0 103/ul Critically low 1.2-3.8 [facility] Comment on above: Performed By: #### C BC ####[facility] Jgqlcfuwim[address] [place] [address]Dr. Villa Yanes Lymphocytes/100 WBC (Bld) 6.7 % Critically low 20.5-60.0 [facility] Comment on above: Performed By: #### C BC ####[facility] Xgbejmyjyv[address] [place] [address]Dr. Brooklynkaren Yanes MANUAL DIFF REQ NO Normal [facility] Comment on above: Performed By: #### C BC ####[facility] Xfgjvtlklc[address] [place], [place] [id number]. Villa Yanes MCH (RBC) [Entitic mass] 30.5 pg Normal 25.9-34.0 [facility] Comment on above: Performed By: #### C BC ####[facility] Dqgsgqcnii2599 [place] [id number]. Villa Yanes MCHC (RBC) [Mass/Vol] 31.9 g/dL Normal 29.9-35.2 [facility] Comment on above: Performed By: #### C BC ####[facility] Invposcsmp[address] [place], [place] [id number]. Villa Yanes MCV (RBC) [Entitic vol] 95.6 fL Critically high 80.0-94.0 [facility] Comment on above: Performed By: #### C BC ####[facility] Gbdtufeolu[address] [place], [place] [address]Dr. Villa Yanes MONO # 0.8 103/ul Normal 0.3-0.8 [facility] Comment on above: Performed By: #### C BC ####[facility] Kvnwkhchdy8[address] [place] [id number]. Villa Yanes Monocytes/100 WBC (Bld) 5.4 % Normal 1.7-12.0 [facility] Comment on above: Performed By: #### C BC ####[facility] Rnuzdgbyfk9[address] [place] [phone]. Villa Yanes NEUT # 13.0 103/ul Critically high 1.4-6.5 [facility] Comment on above: Performed By: #### C BC ####[facility] Dmejlvholn69[address] [place] [address]Dr. Villa Yanes Neutrophils/100 WBC (Bld) 85.6 % Critically high 43.0-75.0 [facility] Comment on above: Performed By: #### C BC ####[facility] Otccgigtcm34[address] [place] [address]Dr. Villa Yanes Platelet mean volume (Bld) [Entitic vol] 9.8 fL Normal 9.5-13.5 [facility] Comment on above: Performed By: #### C BC ####[facility] Hwqofaekcj[address] [place] [address]Dr. Villa Yanes PLT 299 103/ul Normal 150-450 [facility] Comment on above: Performed By: #### C BC ####[facility] Jlrryoyjqc5326 [place] [address]Dr. Villa Yanes RBC 3.41 106/ul Critically low 4.70-6.10 [facility] Comment on above: Performed By: #### C BC ####[facility] Enqwjbvugf30[address] [place] [address]Dr. Villa Yanes WBC 15.1 103/ul Critically high 4.0-11.0 [facility] Comment on above: Performed By: #### C BC ####[facility] Scmbdlgowy[address] [place] [address]Dr. [place] [address] CT ABD/PELV W CONon 10-10-19 CT ABD/PELV W CON Normal [facility] MAGNESIUMon 10-09-2021 Magnesium [Mass/Vol] 2.5 mg/dL Critically high 1.8-2.4 [facility] Comment on above: Performed By: #### PETER Hart ####[facility] Waumzbcwua[address] [place], [place] [address]Dr. Villa Yanes PHOSPHORUSon 10-09-2021 Phosphate [Mass/Vol] 3.8 mg/dL Normal 2.6-4.7 [facility] Comment on above: Performed By: #### PETER Hart ####[facility] Ehmvtjikxt05[address] [place], [place] [address]Dr. Villa Yanes POINT OF CARE GLUCOSEon 09-21 Glucose [Mass/Vol] 244 mg/dL Critically high 74-106 [facility] Comment on above: Performed By: #### P OCGLUC ####[facility] Mmgdwubopd0978[address] [place], [place] [address]Dr. Villa Yanes Glucose [Mass/Vol] 171 mg/dL Critically high 74-106 [facility] Comment on above: Performed By: #### P OCGLUC ####[facility] Hmxdqoinsu35[address] [place], [place] [address]Dr. Villa Yanes Glucose [Mass/Vol] 203 mg/dL Critically high -106 [facility] Comment on above: Performed By: #### P OCGLUC ####[facility] Scejxpuhoy44[address] [place], [place] [address]Dr. Villa Yanes Glucose [Mass/Vol] 171 mg/dL Critically high 74-106 [facility] Comment on above: Performed By: #### P OCGLUC ####[facility] Jvgsvgkcdp60[address] [place], [place] [address]Dr. Villa Yanes PROF 14(COMP METB)on 022 Albumin [Mass/Vol] 2.0 g/dL Critically low 3.4-5.0 [facility] Comment on above: Performed By: #### B SEALER SANDER, CMP ####[facility] Aakbiqkfpw0[address] [place], [place] [address]Dr. Villa Yanes Albumin/Globulin [Mass ratio] 0.5 {ratio} Normal [facility] Comment on above: Performed By: #### B SEALER SANDER, CMP ####[facility] Lyzrsrasrv[address] [place] [id number]. Villa Yanes ALP [Catalytic activity/Vol] 113 U/L Normal 46-116 [facility] Comment on above: Performed By: #### B SEALER SANDER, CMP ####[facility] Hicnvbihru6471 [place] [phone]. Villa Joaquín ALT [Catalytic activity/Vol] 10 U/L Critically low 16-63 [facility] Comment on above: Performed By: #### B SEALER SANDER, CMP ####[facility] Nkyxmsemxu7758 [place] [address]Dr. Villa Yanes Anion gap [Moles/Vol] 11.0 mmol/L Normal Th e [facility] Comment on above: Performed By: #### B SEALER SANDER, CMP ####[facility] Iiqnizvygu2854[address] [place], [place] [address]Dr. Villa Yanes AST [Catalytic activity/Vol] 28 U/L Normal 15-37 [facility] Comment on above: Performed By: #### B SEALER SANDER, CMP ####[facility] Ercnhqjdja74[address] [place], [place] [address]Dr. Brooklynkaren Joaquín Bilirubin [Mass/Vol] 0.3 mg/dL Normal 0.2-1.0 [facility] Comment on above: Performed By: #### B SEALER SANDER, CMP ####[facility] Jnszvxpbxd8922 [place] [phone]. Villa Yanes Calcium [Mass/Vol] 8.7 mg/dL Normal 8.5-10.1 [facility] Comment on above: Performed By: #### B SEALER SANDER, CMP ####[facility] Ifwxgcztsb0042 [place] [phone]. Villa Yanes Chloride [Moles/Vol] 100 mmol/L Normal 98-107 [facility] Comment on above: Performed By: #### B SEALER SANDER, CMP ####[facility] Njcojhbcej[address] [place] [address]Dr. Villa Yanes CO2 [Moles/Vol] 28.1 mmol/L Normal 21.0-32.0 [facility] Comment on above: Performed By: #### B SEALER SANDER, CMP ####[facility] Voqriyctrq039[address] [place] [address]Dr. Villa Joaquín Creatinine [Mass/Vol] 1.61 mg/dL Critically high 0.70-1.30 [facility] Comment on above: Performed By: #### B SEALER SANDER, CMP ####[facility] Seikoxejfm2464[address] [place], [place] [address]Dr. Villa Joaquín EGFR-AF PAKISTANI 50 mL/min/1.73m2 Critically low >=60 [facility] Comment on above: Performed By: #### B SEALER SANDER, CMP ####[facility] Bxcansvfdc[address] [place], [place] [address]Dr. Villa Yanes EGFR-NON AF PAKISTANI 42 mL/min/1.73m2 Critically low >=60 [facility] Comment on above: Performed By: #### B SEALER SANDER, CMP ####[facility] Idlkdhgqgv2847[address] [place], [place] [address]Dr. Villa Yanes Globulin (S) [Mass/Vol] 4.1 g/dL Normal [facility] Comment on above: Performed By: #### B SEALER SANDER, CMP ####[facility] Pyinjtrwhh123[address] [place], [place] [address]Dr. Villa Yanes Glucose [Mass/Vol] 154 mg/dL Critically high 74-106 [facility] Comment on above: Performed By: #### B SEALER SANDER, CMP ####[facility] Nbhaqudkxt954[address] [place], [place] [address]Dr. Villa Yanes Potassium [Moles/Vol] 4.1 mmol/L Normal 3.5-5.1 [facility] Comment on above: Performed By: #### B SEALER SANDER, CMP ####[facility] Qlgmtzmbxd0766[address] [place], [place] [address]Dr. Villa Yanes Protein [Mass/Vol] 6.1 g/dL Critically low 6.4-8.2 [facility] Comment on above: Performed By: #### B SEALER SANDER, CMP ####[facility] Cpatulrshc8424[address] [place], [place] [address]Dr. Villa Yanes Sodium [Moles/Vol] 135 mmol/L Critically low 136-145 [facility] Comment on above: Performed By: #### B SEALER SANDER, CMP ####[facility] Xfmfvuknht5704[address] [place], [place] [address]Dr. Villa Yanes Urea nitrogen [Mass/Vol] 29.0 mg/dL Critically high 7.0-18.0 [facility] Comment on above: Performed By: #### B SEALER SANDER, CMP ####[facility] Wkdotbhroo7125[address] [place], [place] [address]Dr. Villa Yanes Urea nitrogen/Creatinine [Mass ratio] 18.0 mg/mg Normal [facility] Comment on above: Performed By: #### B SEALER SANDER, CMP ####[facility] Rafkrjirtj9968[address] [place], [place] [address]Dr. Villa Yanes XR ABD FLAT UP_PA Temo 10-09 XR ABD FLAT UP_PA CH Normal [facility] BNPon 10-08-2021 Natriuretic peptide B (Bld) [Mass/Vol] 1299.0 pg/mL Normal <=1,800.0 [facility] Comment on above: Performed By: #### B SEALER SANDER, CMP ####[facility] Ppzywndzzh6099[address] [place], [place] [address]Dr. Villa Yanes CBC AUTO DIFFon 10-08-2021 BASO # 0.1 103/ul Normal 0.0-0.1 [facility] Comment on above: Performed By: #### C BC ####[facility] Ktautdeqqe745[address] [place], [place] [address]Dr. Villa Yanes Basophils/100 WBC (Bld) 0.7 % Normal 0.2-2.0 [facility] Comment on above: Performed By: #### C BC ####[facility] Wrrzxtpizg016[address] [place], [place] [address]Dr. Villa Yanes EO # 0.4 103/ul Normal 0.0-0.7 [facility] Comment on above: Performed By: #### C BC ####[facility] Clrlkuaojp5949[address] [place], [place] [address]Dr. Villa Yanes Eosinophils/100 WBC (Bld) 4.5 % Normal 0.9-7.0 [facility] Comment on above: Performed By: #### C BC ####[facility] Zavtdaszxn7034[address] [place], [place] [address]Dr. Villa Yanes Erythrocyte distribution width (RBC) [Ratio] 13.1 % Normal 11.0-15.0 [facility] Comment on above: Performed By: #### C BC ####[facility] Mtgijaqwlb1816[address] [place], [place] [address]DrBrenden Yanes Hematocrit (Bld) [Volume fraction] 32.8 % Critically low 42.0-54.0 [facility] Comment on above: Performed By: #### C BC ####[facility] Lahoohrllj4[address] [place], [place] [address]DrBrenden Yanes Hemoglobin (Bld) [Mass/Vol] 10.3 g/dL Critically low 14.0-18.0 [facility] Comment on above: Performed By: #### C BC ####[facility] Dbgdrkdhfo3952[address] [place], [place] [address]Dr. Villa Yanes IG # 0.13 10e3/ul Critically high 0.00-0.03 [facility] Comment on above: Performed By: #### C BC ####[facility] Qwdazpivwq1958[address] [place], [place] [address]Dr. Villa Yanes IG % 1.4 % Critically high 0.0-0.5 [facility] Comment on above: Performed By: #### C BC ####[facility] Bysxcblluh8[address] [place], [place] [address]DrBrenden Yanes LYMPH # 1.2 103/ul Normal 1.2-3.8 [facility] Comment on above: Performed By: #### C BC ####[facility] Mparexsgyq2878[address] [place], [place] [address]DrBrenden Yanes Lymphocytes/100 WBC (Bld) 13.0 % Critically low 20.5-60.0 [facility] Comment on above: Performed By: #### C BC ####[facility] Vwmqazlvha[address] [place], [place] [address]DrBrenden Yanes MANUAL DIFF REQ NO Normal [facility] Comment on above: Performed By: #### C BC ####[facility] Txqmefpfim0856 [place] [address]DrBrenden Yanes MCH (RBC) [Entitic mass] 30.2 pg Normal 25.9-34.0 [facility] Comment on above: Performed By: #### C BC ####[facility] Jehhfrpnxg8052 [place] [address]DrBrenden Yanes MCHC (RBC) [Mass/Vol] 31.4 g/dL Normal 29.9-35.2 [facility] Comment on above: Performed By: #### C BC ####[facility] Kgtmbqratk9[address] [place], [place] [address]DrBrenden Yanes MCV (RBC) [Entitic vol] 96.2 fL Critically high 80.0-94.0 [facility] Comment on above: Performed By: #### C BC ####[facility] Djnzzupgog[address] [place], [place] [address]DrBrenden Yanes MONO # 0.7 103/ul Normal 0.3-0.8 [facility] Comment on above: Performed By: #### C BC ####[facility] Mwszlvczca[address] [place], [place] [address]DrBrenden Yanes Monocytes/100 WBC (Bld) 7.9 % Normal 1.7-12.0 [facility] Comment on above: Performed By: #### C BC ####[facility] Lfrgdcuunl39[address] [place], [place] [address]DrBrenden Yanes NEUT # 6.8 103/ul Critically high 1.4-6.5 [facility] Comment on above: Performed By: #### C BC ####[facility] Cyvwyipach[address] [place], [place] [address]DrBrenden Yanes Neutrophils/100 WBC (Bld) 72.5 % Normal 43.0-75.0 [facility] Comment on above: Performed By: #### C BC ####[facility] Ivcfviuypt7981[address] [place], [place] [address]DrBrenden Yanes Platelet mean volume (Bld) [Entitic vol] 9.2 fL Critically low 9.5-13.5 [facility] Comment on above: Performed By: #### C BC ####[facility] Rhwyxvqkwe8[address] [place] [id number]. Villa Yanes PLT 258 103/ul Normal 150-450 [facility] Comment on above: Performed By: #### C BC ####[facility] Shzjortord34[address] [place] [address]Dr. Villa Yanes RBC 3.41 106/ul Critically low 4.70-6.10 [facility] Comment on above: Performed By: #### C BC ####[facility] Mxmrpnutqt6142 [place] [address]Dr. Villa Yanes WBC 9.4 103/ul Normal 4.0-11.0 [facility] Comment on above: Performed By: #### C BC ####[facility] Bnzvjlpsyk1647 [place] [address]DrBrenden Villa Yanes POINT OF CARE GLUCOSEon 09-21 Glucose [Mass/Vol] 180 mg/dL Critically high 74-106 [facility] Comment on above: Performed By: #### P OCGLUC ####[facility] Drxmrzckmj4875 [place] [address]Dr. Villa Yanes Glucose [Mass/Vol] 159 mg/dL Critically high 74-106 [facility] Comment on above: Performed By: #### P OCGLUC ####[facility] Jhqcwdgvmk8554 [place] [address]Dr. Villa Yanes Glucose [Mass/Vol] 110 mg/dL Critically high 74-106 [facility] Comment on above: Performed By: #### P OCGLUC ####[facility] Lggafcppab9924 [place] [address]DrBrenden Villa Joaquín PROF 14(COMP METB)on 022 Albumin [Mass/Vol] 2.1 g/dL Critically low 3.4-5.0 [facility] Comment on above: Performed By: #### B SEALER SANDER, CMP ####[facility] Ntgpwuxfux4547 [place] [id number]. Villa Yanes Albumin/Globulin [Mass ratio] 0.5 {ratio} Normal [facility] Comment on above: Performed By: #### B SEALER SANDER, CMP ####[facility] Eajphrrrex2455 [place] [address]Dr. Villa Yanes ALP [Catalytic activity/Vol] 92 U/L Normal 46-116 [facility] Comment on above: Performed By: #### B SEALER SANDER, CMP ####[facility] Oqkzujuoom5306 [place] [address]Dr. Villa Yanes ALT [Catalytic activity/Vol] 9 U/L Critically low 16-63 [facility] Comment on above: Performed By: #### B SEALER SANDER, CMP ####[facility] Racyvjrjnf8[address] [place], [place] [address]Dr. Villa Yanes Anion gap [Moles/Vol] 9.6 mmol/L Normal [facility] Comment on above: Performed By: #### B SEALER SANDER, CMP ####[facility] Lfpfbtvopc65[address] [place], [place] [address]Dr. Villa Yanes AST [Catalytic activity/Vol] 13 U/L Critically low 15-37 [facility] Comment on above: Performed By: #### B SEALER SANDER, CMP ####[facility] Saybubecxc[address] [place], [place] [address]Dr. Villa Yanes Bilirubin [Mass/Vol] 0.3 mg/dL Normal 0.2-1.0 [facility] Comment on above: Performed By: #### B SEALER SANDER, CMP ####[facility] Hlyylhgpxh7387 [place] [address]Dr. Villa Yanes Calcium [Mass/Vol] 9.0 mg/dL Normal 8.5-10.1 [facility] Comment on above: Performed By: #### B SEALER SANDER, CMP ####[facility] Pnqsdqtjzk5[address] [place], [place] [address]Dr. Villa Yanes Chloride [Moles/Vol] 102 mmol/L Normal 98-107 [facility] Comment on above: Performed By: #### B SEALER SANDER, CMP ####[facility] Javpalzmme0516[address] [place], [place] [address]Dr. Villa Joaquín CO2 [Moles/Vol] 29.5 mmol/L Normal 21.0-32.0 [facility] Comment on above: Performed By: #### B SEALER SANDER, CMP ####[facility] Yfaxaspjpt[address] [place], [place] [address]Dr. Villa Joaquín Creatinine [Mass/Vol] 1.49 mg/dL Critically high 0.70-1.30 [facility] Comment on above: Performed By: #### B SEALER SANDER, CMP ####[facility] Gqshvhdbbo40[address] [place], [place] [address]Dr. Villa Yanes EGFR-AF PAKISTANI 55 mL/min/1.73m2 Critically low >=60 [facility] Comment on above: Performed By: #### B SEALER SANDER, CMP ####[facility] Kavujahdgd01[address] [place], [place] [address]Dr. Villa Yanes EGFR-NON AF PAKISTANI 45 mL/min/1.73m2 Critically low >=60 [facility] Comment on above: Performed By: #### B SEALER SANDER, CMP ####[facility] Onhuziarti5189[address] [place], [place] [address]Dr. Villa Yanes Globulin (S) [Mass/Vol] 4.2 g/dL Normal [facility] Comment on above: Performed By: #### B SEALER SANDER, CMP ####[facility] Wqrvtvynei64[address] [place], [place] [address]Dr. Villa Yanes Glucose [Mass/Vol] 157 mg/dL Critically high 74-106 [facility] Comment on above: Performed By: #### B SEALER SANDER, CMP ####[facility] Minvpvlido5944[address] [place], [place] [address]Dr. Villa Yanes Potassium [Moles/Vol] 4.1 mmol/L Normal 3.5-5.1 [facility] Comment on above: Performed By: #### B SEALER SANDER, CMP ####[facility] Ciameqimvg[address] [place], [place] [address]Dr. Villa Yanes Protein [Mass/Vol] 6.3 g/dL Critically low 6.4-8.2 [facility] Comment on above: Performed By: #### B SEALER SANDER, CMP ####[facility] Ktijtukolt34[address] [place] [address]Dr. Villa Yanes Sodium [Moles/Vol] 137 mmol/L Normal 136-145 [facility] Comment on above: Performed By: #### B SEALER SANDER, CMP ####[facility] Chhbxlstjj4391 [place] [address]Dr. Villa Joaquín Urea nitrogen [Mass/Vol] 26.0 mg/dL Critically high 7.0-18.0 [facility] Comment on above: Performed By: #### B SEALER SANDER, CMP ####[facility] Brmzoztnzj9905 [place] [address]Dr. [place]karen Joqauín Urea nitrogen/Creatinine [Mass ratio] 17.4 mg/mg Normal [facility] Comment on above: Performed By: #### B SEALER SANDER, CMP ####[facility] Pomgavnmin3608 [place] [address]Dr. Villa Yanes POINT OF CARE GLUCOSEon 09-21 Glucose [Mass/Vol] 145 mg/dL Critically high 74-106 [facility] Comment on above: Performed By: #### P OCGLUC ####[facility] Scvpmccaoa2579 [place] [address]Dr. Villa Yanes Glucose [Mass/Vol] 163 mg/dL Critically high 74-106 [facility] Comment on above: Performed By: #### P OCGLUC ####[facility] Jccmotwewl1607 [place] [address]Dr. Villa Yanes Glucose [Mass/Vol] 169 mg/dL Critically high 74-106 [facility] Comment on above: Performed By: #### P OCGLUC ####[facility] [address]czntapplf[address] [place] [id number]. [place]anes Tobacco Screening.on 022 Adult depression screening assessment No [facility] [employer] 250 DO Work Phone: Fall risk assessment b) One or more fall s in the last year [facility] [employer] 250 DO Work Phone: Tobacco use status CPHS a) Yes [facility] 250 DO Work Phone: Tobacco Screening. Yes [facility] 250 DO Work Phone: Vital Signs Date Time Vital Sign Value Performing Clinician Facility 02-04-2023 11:57-0400 Body height 180.34 cm Micheal M Hoy Work Phone: [facility] 250 DO Work Phone: 02-04-2023 11:57-0400 Body mass index (BMI) [Ratio] 19.53 kg/m2 Micheal M Hoy Work Phone: [facility] 250 DO Work Phone: 02-04-2023 11:57-0400 Body surface area Derived from formula 1.81 m2 Micheal M Hoy Work Phone: [facility] 250 DO Work Phone: 02-04-2023 11:57-0400 Body weight 63.5 kg Micheal M Hoy Work Phone: [facility] 250 DO Work Phone: 02-04-2023 11:57-0400 Diastolic blood pressure 62 mm[Hg] Micheal M Hoy Work Phone: [facility] 250 DO Work Phone: 02-04-2023 11:57-0400 Heart rate 62 /min Micheal M Hoy Work Phone: [facility] 250 DO Work Phone: 02-04-2023 11:57-0400 Systolic blood pressure 140 mm[Hg] Micheal M Hoy Work Phone: [facility] 250 DO Work Phone: 11-26-2022 00:00-0400 55 1 Micheal M Hoy Work Phone: [facility] 250 DO Work Phone: Comment on above: [id number] 11-25-2022 22:09-0400 Body height 180.34 cm MD Micheal Gutiérrez Work Phone: [facility] 11-25-2022 22:09-0400 Body temperature 98.1 [degF] MD Micheal Gutiérrez Work Phone: [facility] 11-25-2022 22:09-0400 Body weight 56.9 kg MD Micheal Gutiérrez Work Phone: [facility] 11-25-2022 22:09-0400 Diastolic blood pressure 94 mm[Hg] MD Micheal Gutiérrez Work Phone: [facility] 11-25-2022 22:09-0400 Heart rate 69 /min MD Micheal Gutiérrez Work Phone: [facility] 11-25-2022 22:09-0400 Respiratory rate 18 /min MD Micheal Gutiérrez Work Phone: [facility] 11-25-2022 22:09-0400 SaO2% (BldA) [Mass fraction] 94 % MD Micheal Gutiérrez Work Phone: [facility] 11-25-2022 22:09-0400 Systolic blood pressure 177 mm[Hg] MD Micheal Gutiérrez Work Phone: [facility] 08-04-2022 11:02-0400 Body height 180.34 cm Micheal Dick Torsetny Work Phone: [facility] 250 DO Work Phone: 08-04-2022 11:02-0400 Body mass index (BMI) [Ratio] 17.71 kg/m2 Michealkiersten Sarmientoy Work Phone: [facility] 250 DO Work Phone: 08-04-2022 11:02-0400 Body surface area Derived from formula 1.74 m2 Michealkiersten Sarmientoy Work Phone: [facility] 250 DO Work Phone: 08-04-2022 11:02-0400 Body weight 57.61 kg Micheal M Hoy Work Phone: [facility] 250 DO Work Phone: 08-04-2022 11:02-0400 Diastolic blood pressure 60 mm[Hg] Micheal M Hoy Work Phone: [facility] 250 DO Work Phone: 08-04-2022 11:02-0400 Heart rate 82 /min Micheal M Hoy Work Phone: [facility] 250 DO Work Phone: 08-04-2022 11:02-0400 Systolic blood pressure 120 mm[Hg] Micheal M Hoy Work Phone: [facility] 250 DO Work Phone: 03-12-2022 12:03-0400 Body height 180.34 cm Micheal M Hoy Work Phone: [facility] 250 DO Work Phone: 03-12-2022 12:03-0400 Body mass index (BMI) [Ratio] 19.67 kg/m2 Micheal M Hoy Work Phone: [facility] 250 DO Work Phone: 03-12-2022 12:03-0400 Body surface area Derived from formula 1.82 m2 Micheal M Hoy Work Phone: [facility] 250 DO Work Phone: 03-12-2022 12:03-0400 Body weight 63.96 kg Micheal M Hoy Work Phone: [facility] 250 DO Work Phone: 03-12-2022 12:03-0400 Diastolic blood pressure 64 mm[Hg] Micheal M Hoy Work Phone: [facility] 250 DO Work Phone: 03-12-2022 12:03-0400 Heart rate 64 /min Micheal Dick Hoy Work Phone: [facility] 250 DO Work Phone: 03-12-2022 12:03-0400 Systolic blood pressure 134 mm[Hg] Micheal Dick Hoy Work Phone: [facility] 250 DO Work Phone: 02-17-2022 15:33-0400 Body height 180.34 cm Micheal Dick Hoy Work Phone: [facility] 250 DO Work Phone: 02-17-2022 15:33-0400 Body mass index (BMI) [Ratio] 19.72 kg/m2 Micheal Dick Hoy Work Phone: [facility] 250 DO Work Phone: 02-17-2022 15:33-0400 Body surface area Derived from formula 1.82 m2 Micheal Dick Hoy Work Phone: [facility] 250 DO Work Phone: 02-17-2022 15:33-0400 Body weight 64.13 kg Micheal Dick Hoy Work Phone: [facility] 250 DO Work Phone: 02-17-2022 15:33-0400 Diastolic blood pressure 70 mm[Hg] Micheal M Hoy Work Phone: [facility] 250 DO Work Phone: 02-17-2022 15:33-0400 Heart rate 80 /min Micheal M Hoy Work Phone: [facility] 250 DO Work Phone: 02-17-2022 15:33-0400 Systolic blood pressure 124 mm[Hg] Micheal M Hoy Work Phone: [facility] 250 DO Work Phone: 2022 14:04-0400 Body height 170.8 cm Billie Guan MD Work Phone: [facility] 2022 14:04-0400 Body weight 62.14 kg Billie Guan MD Work Phone: [facility] 2022 14:04-0400 Diastolic blood pressure 76 mm[Hg] Billie Guan MD Work Phone: [facility] 2022 14:04-0400 Heart rate 78 /min Billie Guan MD Work Phone: [facility] 2022 14:04-0400 Systolic blood pressure 124 mm[Hg] Billie Guan MD Work Phone: [facility] 01-12-2022 11:28-0400 Body height 180.34 cm Micheal M Hoy Work Phone: [facility] 250 DO Work Phone: 01-12-2022 11:28-0400 Body mass index (BMI) [Ratio] 18.69 kg/m2 Micheal M Hoy Work Phone: [facility] 250 DO Work Phone: 01-12-2022 11:28-0400 Body surface area Derived from formula 1.78 m2 Micheal M Hoy Work Phone: [facility] 250 DO Work Phone: 01-12-2022 11:28-0400 Body weight 60.78 kg Micheal M Hoy Work Phone: [facility] 250 DO Work Phone: 01-12-2022 11:28-0400 Diastolic blood pressure 52 mm[Hg] Micheal M Hoy Work Phone: [facility] 250 DO Work Phone: 01-12-2022 11:28-0400 Heart rate 96 /min Micheal Gutiérrez Work Phone: [facility] 250 DO Work Phone: 01-12-2022 11:28-0400 Systolic blood pressure 100 mm[Hg] Micheal Gutiérrez Work Phone: [facility] 250 DO Work Phone: 12-31-2021 12:26-0400 Body temperature 98.4 [degF] Wanchana Sachai RISK MANAGEMENT PROFESSIONAL.DIRECTOR OF BILLING Work Phone: [facility] 12-31-2021 12:26-0400 Diastolic blood pressure 85 mm[Hg] Wanchana Sachai RISK MANAGEMENT PROFESSIONAL.DIRECTOR OF BILLING Work Phone: [facility] 12-31-2021 12:26-0400 Heart rate 67 /min Wanchana Sachai RISK MANAGEMENT PROFESSIONAL.DIRECTOR OF BILLING Work Phone: [facility] 12-31-2021 12:26-0400 SaO2% (BldA) [Mass fraction] 98 % Wanchana Sachai RISK MANAGEMENT PROFESSIONAL.DIRECTOR OF BILLING Work Phone: [facility] 12-31-2021 12:26-0400 Systolic blood pressure 138 mm[Hg] Wanchana Sachai RISK MANAGEMENT PROFESSIONAL.DIRECTOR OF BILLING Work Phone: [facility] 12-31-2021 09:48-0400 Body height 170.8 cm Idris Hawk MD Work Phone: [facility] 12-31-2021 09:48-0400 Body temperature 97.5 [degF] Idris Hawk MD Work Phone: [facility] 12-31-2021 09:48-0400 Body weight 58.92 kg Idris Hawk MD Work Phone: [facility] 12-31-2021 09:48-0400 Diastolic blood pressure 57 mm[Hg] Idris Hawk MD Work Phone: [facility] 12-31-2021 09:48-0400 Heart rate 93 /min Idris Hawk MD Work Phone: [facility] 12-31-2021 09:48-0400 Respiratory rate 24 /min Idris Hawk MD Work Phone: [facility] 12-31-2021 09:48-0400 SaO2% (BldA) [Mass fraction] 99 % Idirs Hawk MD Work Phone: [facility] 12-31-2021 09:48-0400 Systolic blood pressure 104 mm[Hg] Idris Hawk MD Work Phone: [facility] 11-27-2021 13:06-0400 Body height 180.3 cm Alissa Arrigon RISK MANAGEMENT PROFESSIONAL.DIRECTOR OF BILLING Work Phone: [facility] 11-27-2021 13:06-0400 Body weight 58.88 kg Alissa Arrigon RISK MANAGEMENT PROFESSIONAL.DIRECTOR OF BILLING Work Phone: [facility] 11-27-2021 13:06-0400 Diastolic blood pressure 63 mm[Hg] Alissa Arrigon RISK MANAGEMENT PROFESSIONAL.DIRECTOR OF BILLING Work Phone: [facility] 11-27-2021 13:06-0400 Heart rate 97 /min Alissa Arrigon RISK MANAGEMENT PROFESSIONAL.DIRECTOR OF BILLING Work Phone: [facility] 11-27-2021 13:06-0400 Systolic blood pressure 125 mm[Hg] Alissa Arrigon RISK MANAGEMENT PROFESSIONAL.DIRECTOR OF BILLING Work Phone: [facility] 11-04-2021 09:45-0400 60 1 Micheal M Hoy Work Phone: [facility] Work Phone: Comment on above: [id number] 09-11-2021 10:19-0400 Body height 180.34 cm Micheal M Hoy Work Phone: [facility] 250 DO Work Phone: 09-11-2021 10:19-0400 Body mass index (BMI) [Ratio] 20.92 kg/m2 Micheal M Hoy Work Phone: [facility] 250 DO Work Phone: 09-11-2021 10:19-0400 Body surface area Derived from formula 1.87 m2 Micheal M Hoy Work Phone: [facility] 250 DO Work Phone: 09-11-2021 10:19-0400 Body weight 68.04 kg Micheal M Hoy Work Phone: [facility] 250 DO Work Phone: 09-11-2021 10:19-0400 Diastolic blood pressure 69 mm[Hg] Micheal M Hoy Work Phone: [facility] 250 DO Work Phone: 09-11-2021 10:19-0400 Heart rate 77 /min Micheal M Hoy Work Phone: [facility] 250 DO Work Phone: 09-11-2021 10:19-0400 Systolic blood pressure 101 mm[Hg] Micheal M Hoy Work Phone: [facility] 250 DO Work Phone: Encounters Encounter Date Encounter Type Care Provider Facility Start: 02-04-2023 Office outpatient vi sit 25 minutes Micheal M Hoy Work Phone: [facility] 250 DO Work Phone: Start: 02-04-[address] Lauro Collins Facility: Start: 11-27-[address] Micheal Gutiérrez Facility:[id number] Start: 11-26-[address] Micheal Gutiérrez Facility:[id number] Start: 11-25-2022 End: 11-30-2022 Evaluation and management of inpatient Rosie Mischler Facility:[facility] Start: 11-25-2022 Evaluation and management of inpatient MD Micheal Gutiérrez Work Phone: [facility] [place] [facility] Work Phone: Start: 10-05-2022 End: 10-05-2022 ambulatory ANAHY CHAUDHRY . Facility:H1 Start: 09-11-2022 End: 09-12-[address] RANGEL MCGOVERN . Facility:[facility]1 Start: 09-10-2022 ambulatory DEVON SILVESTRE . Facili ty:H1 Start: 08-17-2022 End: 08-18-[address] MICHEAL GUTIÉRREZ . Facility:[facility]1 Start: 08-04-2022 Office outpatient vi sit 25 minutes Micheal Gutiérrez Work Phone: [facility] 250 DO Work Phone: Start: 08-04-[address] Lauro Collins Facility: Start: 07-30-2022 End: 07-31-[address] MICHEAL GUTIÉRREZ . Facility:[facility]1 Start: 07-28-2022 End: 07-29-2022 ambulatory MYNOR TEIXEIRAMIGREGORY . Facility:[facility]1 Start: 07-16-2022 End: 07-17-2022 ambulatory MYNOR TEIXEIRAMIPATHBraydon . 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 (HCC) (Primary Dx) Start: 07-10-2022 End: 07-10-2022 Telemedicine consultation with patient Hansel Otero PA-C Work Phone: [facility] Start: 07-01-2022 End: 07-01-2022 ambulatory [...] 40 minutes Micheal M Hoy Work Phone: [facility] 250 DO Work Phone: Start: 02-20-2022 End: 02-20-2022 ambulatory MICHEAL GUTIÉRREZ Facility:[facility] Start: 02-17-2022 Office outpatient vi sit 15 minutes Micheal M Hoy Work Phone: [facility] 250 DO Work Phone: Start: 02-17-2022 Patient encounter procedure Micheal M Hoy Work Phone: [facility] 250 DO Work Phone: Start: 02-17-2022 Refill Alissa Colindres on RISK MANAGEMENT PROFESSIONAL.DIRECTOR OF BILLING Work Phone: Urology Comment on above: Opened In Error Start: 02-02-2022 Encounter for other preprocedural examination BILLIE GUAN [facility] Start: 02-02-2022 End: 02-03-2022 Evaluation and management of inpatient BILLIE Roxanna FREIDA Facility:[facility] Start: 02-02-2022 Telephone encounter Alissa mcqueen APRN.DIRECTOR OF BILLING Work Phone: Urology Comment on above: Medication Problem Start: 01-27-2022 ambulatory Rivka Crespo RN General Surgery Comment on above: 01/28/2022 Start: 01-27-2022 Preprocedural examination done Rivka Crespo RN General Surgery Start: 01-27-2022 Telephone encounter Thu Lancaster RN General Surgery Comment on above: Patient Update Start: 01-24-2022 End: 01-24-2022 ambulatory MICHEAL GUTIÉRREZ Facility:[facility] Start: 2022 End: 01-24-2022 ambulatory [facility] Facility:[facility] Start: 2022 End: 2022 Patient encounter procedure Billie Guan MD Work Phone: General Surgery Comment on above: 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) Start: 01-17-2022 End: 01-17-[address] ANAMARIA BENITEZ Facility: Start: 01-16-2022 End: 01-16-2022 Subsequent hospital visit by physician [facility] (I-Stat/1.5t) Radiology Comment on above: 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] Start: 01-12-2022 Office outpatient vi sit 25 minutes Micheal Gutiérrez Work Phone: [facility] 250 DO Work Phone: Start: 01-08-2022 ambulatory Alissa partida RISK MANAGEMENT PROFESSIONAL.DIRECTOR OF BILLING Work Phone: Urology Comment on above: MBS results Start: 01-05-2022 End: 01-05-2022 ambulatory Micheal Gutiérrez Facility:[facility] Start: 01-05-2022 End: 01-05-2022 Patient encounter procedure MD Micheal Gutiérrez Work Phone: [facility] [place] Start: 01-02-[address] MICHEAL GUTIÉRREZ . Facili ty:H1 Start: 12-31-2021 End: 12-31-2021 Emergency department patient visit MICHEAL GUTIÉRREZ Facility:[facility] Start: 12-31-2021 End: 12-31-2021 ambulatory MICHEAL SARMIENTOBraydon Facility:[facility] Start: 12-31-2021 End: 12-31-2021 Office outpatient new 30 minutes Yadira Frazier RISK MANAGEMENT PROFESSIONAL.DIRECTOR OF BILLING Work Phone: [facility] Comment on above: Feeding tube blocked , initial encounter (Primary Dx); SOB (shortness of breath) on exertion; Chronic cough Start: 12-31-2021 End: 12-31-2021 ambulatory MICHEAL GUTIÉRREZ Facility:[facility] Start: 12-31-2021 End: 12-31-2021 Patient encounter procedure Idris Hawk MD Work Phone: Vascular Surg Dept Comment on above: Peripheral arterial disease (HCC) (Primary Dx) Start: 12-24-2021 End: 12-24-2021 ambulatory Michealkiersten Sarmientobraydon Facility:[facility] Start: 12-24-2021 End: 12-24-2021 Discharged Recurring MD Micheal Gutiérrez Work Phone: [facility] Therapy [facility] Start: 12-19-2021 End: 12-20-[address] MICHEAL GUTIÉRREZ . Facility:H1 Start: 12-18-2021 End: 12-19-[address] MICHEAL GUTIÉRREZ . Facility:H1 Start: 12-13-2021 Telephone encounter Brock garcia MD Work Phone: Urology Comment on above: Patient Question Start: 12-04-2021 End: 12-04-2021 ambulatory ALISSA LACKEY Facility:[facility] Start: 12-04-2021 Telephone encounter Alissa mcqueen RISK MANAGEMENT PROFESSIONAL.DIRECTOR OF BILLING Work Phone: Urology Comment on above: Results Start: 12-03-2021 ambulatory Alissa partida RISK MANAGEMENT PROFESSIONAL.DIRECTOR OF BILLING Work Phone: Urology Comment on above: Kidney CT Start: 12-02-2021 End: 12-02-2021 ambulatory ALISSA Florencia ARRIGON Facility:[facility] Start: 12-02-2021 End: 12-02-2021 Subsequent hospital visit by physician [facility] Karla Work Phone: Radiology Comment on above: Renal lesion [N28.9] Start: 11-27-2021 End: 11-28-2021 ambulatory Alissa P Arrigon RISK MANAGEMENT PROFESSIONAL.DIRECTOR OF BILLING Work Phone: Urology Start: 11-27-2021 Telephone encounter Micheal Gutiérrez MD Work Phone: NOC Comment on above: Follow Up Phone Call (All Clear) Start: 11-27-2021 End: 11-27-2021 Patient encounter procedure Alissa Torrezn RISK MANAGEMENT PROFESSIONAL.DIRECTOR OF BILLING Work Phone: Urology Comment on above: Urinary retention (P rimary Dx); Renal lesion Start: 11-21-2021 Admission to [facility] Micheal Gutiérrez MD Work Phone: [facility] Work Phone: Start: 11-20-2021 Telephone encounter Idris Hawk MD Work Phone: Vascular Surg Dept Comment on above: Appointment Start: 11-19-2021 Telephone encounter Micheal [facility]rez [facility] Work Phone: Start: 11-11-2021 Chart Update Micheal Gutiérrez Work Phone: [facility] 250 DO Work Phone: Start: 11-11-[address] SHUKRI HONG . Facility: Start: 11-10-2021 Admission to [facility] Work Phone: Start: 11-09-2021 End: 11-20-2021 Evaluation and management of inpatient [facility] Facility:[facility] Start: 11-04-2021 Patient encounter procedure Micheal Gutiérrez Work Phone: [facility] [address] [place] Work Phone: Start: 10-28-2021 End: 10-28-[address] MICHEAL GUTIÉRREZ . Facility: Start: 09-23-2021 AUDIT Micheal Gutiérrez Work Phone: [facility] 250 DO Work Phone: Start: 09-11-2021 Office outpatient vi sit 40 minutes Micheal Gutiérrez Work Phone: [facility] 250 DO Work Phone: Start: 04-20-2018 End: 04-21-2018 Patient encounter procedure DEFAULT PHYSICIAN Facility:[facility] Procedures Date Procedure Procedure Detail Performing Clinician Start: 11-25-2022 Plain chest X-ray MD Micheal Gutiérrez Work Phone: Start: 12-02-2021 Ct abdomen w/o & w/contrast material Alissa Lackey APRN.DIRECTOR OF BILLING Work Phone: Start: 11-15-2021 Antibody screen MICHEAL GUTIÉRREZ Comment on above: Order Comment: Specimen Type: BLOOD SPEC IMENOrdering Facility: Address: [address] [place] [address] Performed By: #### T SCR ####CC MAIN BLOOD BANKCLIA [id number] [address] Start: 11-10-2021 Antibody screen MICHEAL GUTIÉRREZ Comment on above: Order Comment: Specimen Type: BLOOD SPEC IMENOrdering Facility: Address: [address] [place] [address] Performed By: #### T SCR ####CC MAIN BLOOD BANKCLIA [id number] [address] Start: 11-10-2021 History of percutaneous transluminal [...] Author Start: 02-03-2025 [address] SCREEN [facility] Start: 11-14-2024 DIABETES SCREEN DI[address]ETES SCREEN [facility] Start: 08-05-2023 FUV, Provider: Lauro Collins, Status: Pen, Time: 11:10 AM FUV, Provider: Lauro Collins, Status: Pen, Time: 11:10 AM [facility] 250 DO Work Phone: Start: 01-22-2023 Influenza vaccination INFLUENZA (#1) [facility] Start: 01-05-2023 FUV, Provider: Lauro Collins, Status: Pen, Time: 2:50 PM FUV, Provider: Lauro Collins, Status: Pen, Time: 2:50 PM [facility] 250 DO Work Phone: Start: 12-31-2022 ANNUAL PCP TEAM SERVICE ATTENDANT CAFETERIA CRISTY DISEASE VISIT ANNUAL PCP TEAM CHRONIC DISEASE VISIT [facility] Start: 11-26-2022 Blood chemistry [facility] Start: 11-26-2022 [facility] Start: 11-25-2022 End: 11-25-2022 [facility] Start: 11-25-2022 Physical therapy procedure [facility] Start: 11-25-2022 Referral to finnish rubber [facility] Start: 11-25-2022 Referral to occupational therapist [facility] Start: 11-25-2022 Hospital admission [facility] Start: 11-25-2022 Bacteria identified in Blood by Culture [facility] Start: 08-04-2022 FUV, Provider: Lauro Collins, Status: Pen, Time: 10:30 AM FUV, Provider: Lauro Collins, Status: Pen, Time: 10:30 AM -[facility] 250 DO Work Phone: Start: 05-24-2022 ADVANCE DIRECTIVE DISCUSSION ADVANCE DIRECTIVE DISCUSSION [facility] Start: 05-24-2022 DEPRESSION ASSESSMENT DEPRESSION ASS ESSMENT [facility] Start: 03-12-2022 FUV, Provider: Lauro Collins, Status: Pen, Time: 11:40 AM FUV, Provider: Lauro Collins, Status: Pen, Time: 11:40 AM -[facility] 250 DO Work Phone: Start: 03-11-2022 FUV, Provider: Lauro Collins, Status: Pen, Time: 10:40 AM FUV, Provider: Lauro Collins, Status: Pen, Time: 10:40 AM -[facility] 250 DO Work Phone: Start: 01-27-2022 FUV, Provider: Rochelle Herrmann, Status: Pen, Time: 3:30 PM FUV, Provider: Rochelle Herrmann, Status: Pen, Time: 3:30 PM -[facility] 250 DO Work Phone: Start: 01-22-2022 Influenza vaccination INFLUENZA (#1) [facility] Start: 12-04-2021 End: 02-03-2022 Bacteria identified in Urine by Culture URINE CULTURE Microbiology Routine Cloudy urine Expected: 12/04/2021, Expires: 02/03/2022 [facility] Work Phone: Comment on above: Expected: 12/04/2021 , Expires: 02/03/2022 Start: 11-04-2021 PVR, Provider: KIMU MARIKA [facility] 01,[id number], Status: Pen, Time: 10:45 AM PVR, Provider: HERIBERTO [facility] 01,[id number], Status: Pen, Time: 10:[address] [facility] Work Phone: Start: 11-04-2021 ECHO, Provider: HERIBERTO [facility] 01,[id number], Status: Pen, Time: 9:45 AM ECHO, Provider: [facility]ERT[facility] 01,[id number], Status: Pen, Time: 9:[address] [facility] Work Phone: Start: 10-08-2021 PVR, Provider: KIMAndrés MARIKA [facility] 01,[id number], Status: Pen, Time: 10:45 AM PVR, Provider: HER[facility] ULTRASOUND 01,[id number], Status: Pen, Time: 10:45 AM [facility] 250 DO Work Phone: Start: 10-08-2021 ECHO, Provider: HERIBERTO HHVI ULTRASOUND 01,[id number], Status: Pen, Time: 9:45 AM ECHO, Provider: HERIBERTO HHVI ULTRASOUND 01,[id number], Status: Pen, Time: 9:45 AM [facility] 250 DO Work Phone: Start: 07-30-2021 COVID-19 VACCINE (4 - Booster for Moderna series) COVID-19 VACCINE (4 - Booster for Moderna series) [facility] Start: 05-27-2021 COVID-19 VACCINE (4 - Booster for Moderna series) COVID-19 VACCINE (4 - Booster for Moderna series) [facility] Start: 05-27-2021 COVID-19 VACCINE (4 - Moderna series) COVID-19 VACCINE (4 - Moderna series) [facility] Start: 05-24-2021 ADVANCE DIRECTIVE DISCUSSION ADVANCE DIRECTIVE DISCUSSION [facility] Start: 05-24-2021 DEPRESSION ASSESSMENT DEPRESSION ASS ESSMENT [facility] Start: 2007 PNEUMOCOCCAL: 65+ (1 - PCV) PNEUMOCOCCAL: 65+ (1 - PCV) [facility] Start: 01-24-1992 SHINGRIX VACCINE (1 of 2) SHINGRIX VACCINE (1 of 2) [facility] Start: 1961 Urine microalbumin profile DTAP,TDAP,TD (1 - Tdap) [facility] Start: 01-24-1960 ANNUAL PCP TEAM SERVICE ATTENDANT CAFETERIA CRISTY DISEASE VISIT ANNUAL PCP TEAM CHRONIC DISEASE VISIT [facility] Start: 01-24-1960 Hepatitis B surface antibody level LDL CHOLESTEROL [facility] Start: 1954 Adult depression screening assessment DEPRESSION SCREENING [facility] Start: 01-24-1948 PNEUMOCOCCAL: 65+ (1 - PCV) PNEUMOCOCCAL: 65+ (1 - PCV) [facility] End: 12-27-2022 Ct abdomen w/o & w/contrast material CT KIDNEY WO/W IVCON Radiology Routine Renal lesion 1 Occurrences starting 11/27/2021 until 12/27/2022 [facility] Work Phone: Comment on above: 1 Occurrences starti ng 11/27/2021 until 12/27/2022 End: 01-03-2023 Mri abdomen w/o & w/contrast material MRI KIDNEY WO/W IVCON Radiology Routine Other specified disorders of kidney and ureter 1 Occurrences starting 12/04/2021 until 01/03/2023 [facility] Work Phone: Comment on above: 1 Occurrences starti ng 12/04/2021 until 01/03/2023 URINALYSIS, REFLEX MICROSCOPIC URINALYSIS, REFLEX MICROSCOPIC Lab Routine Screening for genitourinary condition Ordered: 11/27/2021 [facility] Work Phone: Comment on above: Ordered: 11/27/2021 URINALYSIS, REFLEX MICROSCOPIC URINALYSIS, REFLEX MICROSCOPIC Lab Routine Screening for genitourinary condition Ordered: 12/03/2021 [facility] Work Phone: Comment on above: Ordered: 12/03/2021 [facility] Immunizations Immunization Date Immunization Notes Care Provider Reji prieto 03-05-2022 influenza, high dose seasonal, preservative-free Micheal M Hoy Work Phone: [facility] 250 DO Work Phone: Comment on above: Series: 04-01-2021 Moderna COVID-19 Vac cine 100 MCG/0.5ML Intramuscular Suspension Micheal M Hoy Work Phone: [facility] Work Phone: 03-13-2021 influenza, injectabl e, quadrivalent, preservative free Micheal M Hoy Work Phone: [facility] 250 DO Work Phone: Comment on above: Series: 02-17-2021 Seasonal trivalent influenza vaccine, adjuvanted, preservative free Micheal M Hoy Work Phone: [facility] Work Phone: 08-22-2020 pneumococcal polysaccharide vaccine, 23 valent Micheal M Hoy Work Phone: [facility] 250 DO Work Phone: Comment on above: Series: 07-19-2020 Moderna COVID-19 Vac cine 100 MCG/0.5ML Intramuscular Suspension Micheal M Hoy Work Phone: [facility] Work Phone: 06-21-2020 Moderna COVID-19 Vac cine 100 MCG/0.5ML Intramuscular Suspension Micheal M Hoy Work Phone: [facility] Work Phone: 03-06-2020 influenza, high dose seasonal, preservative-free Micheal M Hoy Work Phone: [facility] Work Phone: 02-23-2020 Seasonal trivalent influenza vaccine, adjuvanted, preservative free Micheal M Hoy Work Phone: [facility] Work Phone: 04-06-2018 influenza, injectabl e, quadrivalent, preservative free Micheal M Torsteny Work Phone: [facility] Work Phone: 02-28-2018 tetanus and diphther ia toxoids, adsorbed, preservative free, for adult use (5 Lf of tetanus toxoid and 2 Lf of diphtheria toxoid) Micheal Sarmientoy Work Phone: [facility] Work Phone: 07-12-2017 influenza, injectabl e, quadrivalent, preservative free Micheal M Hoy Work Phone: [facility] Work Phone: 04-07-2017 zoster vaccine, live Micheal Jennings Hobraydon Work Phone: [facility] Work Phone: 02-15-2017 influenza, high dose seasonal, preservative-free Micheal M Torsteny Work Phone: [facility] Work Phone: 02-15-2017 pneumococcal conjuga te vaccine, 13 valent Micheal M Torsteny Work Phone: [facility] Work Phone: 05-24-2016 pneumococcal conjuga te vaccine, 13 valent Micheal M Hoy Work Phone: [facility] Work Phone: 03-04-2016 influenza, injectabl e, quadrivalent, preservative free Micheal M Hoy Work Phone: [facility] Work Phone: 07-29-2015 influenza, injectabl e, quadrivalent, preservative free Micheal M Hoy Work Phone: [facility] Work Phone: 03-06-2015 pneumococcal polysaccharide vaccine, 23 valent Micheal M Hoy Work Phone: [facility] Work Phone: 01-03-2015 tetanus toxoid, redu mark diphtheria toxoid, and acellular pertussis vaccine, adsorbed Micheal M Marla Work Phone: [facility] Work Phone: 05-09-2009 novel influenza-H1N1 -09, preservative-free, injectable Micheal Gutiérrez Work Phone: [facility] Work Phone: Payers Date Payer Category Payer Medicare [id number] 2021 Self-pay [id number] 2021 [place] [id number] 2021-Present [phone] [address] [place] [address] Medicaid [id number] 2021 [place] [id number] 2021-Present [phone] [address] [place] [address] Medicaid [id number] 2020 Unknown 2020 Unknown ANTHEM BLUE CROS S AND BLUE SHIELD ANTHEM MEDIBLUE HMO [id number] 2020-Present [phone] [address] [place] [address] O [id number] 1959 Medicaid [id number] 1959 Medicare [id number] 1959 Self-pay [id number] 1942 Unknown [id number] 2.16.840.1.277912.3.579.2.647 1942 Unknown [id number] 2.16.840.1.694255.3.579.2.593 1942 Unknown [id number] 2.16.840.1.104830.3.579.2.593 1942 Unknown [id number] 2.16.840.1.372676.3.579.2.593 1942 Unknown [id number] 2.16.840.1.766566.3.579.2.593 1942 Unknown [id number] 2.16.840.1.562872.3.579.2.593 1942 Unknown [id number] 2.16.840.1.971639.3.579.2.593 1942 Unknown [id number] 2.16.840.1.075176.3.579.2.593 1942 Unknown [id number] 2.16.840.1.154234.3.579.2.593 1942 Unknown [id number] 2.16.840.1.806113.3.579.2.593 1942 Unknown [id number] 2.16.840.1.645725.3.579.2.593 1942 Unknown [id number] 2.16.840.1.867003.3.579.2.593 1942 Unknown [id number] 2.16.840.1.830154.3.579.2.593 1942 Unknown [id number] 2.16.840.1.985122.3.579.2.593 1942 Unknown [id number] 2.16.840.1.653139.3.579.2.593 1942 Unknown [id number] 2.16.840.1.224265.3.579.2.593 1942 Unknown [id number] 2.16.840.1.271890.3.579.2.593 1942 Unknown [id number] 2.16.840.1.453495.3.579.2.593 1942 Unknown [id number] 2.16.840.1.732717.3.579.2.593 1942 Unknown [id number] 2.16.840.1.474391.3.579.2.593 1942 Unknown [id number] 2.16.840.1.457359.3.579.2.593 1942 Unknown [id number] 2.16.840.1.193235.3.579.2.593 1942 Unknown [id number] 2.16.840.1.215565.3.579.2.593 1942 Unknown [id number] 2.16.840.1.891396.3.579.2.593 1942 Unknown [id number] 2.16.840.1.443541.3.579.2.593 1942 Unknown [id number] 2.16.840.1.945081.3.579.2.593 1942 Unknown [id number] 2.16.840.1.254280.3.579.2.356 1942 Unknown [id number] 2.16.840.1.554210.3.579.2.356 1942 Unknown [id number] 2.16.840.1.543221.3.579.2.356 1942 Unknown [id number] 2.16.840.1.732315.3.579.2.356 1942 Unknown [id number] 2.16.840.1.044961.3.579.2.356 1942 Unknown [id number] 2.16.840.1.458781.3.579.2.356 1942 Unknown [id number] 2.16.840.1.389330.3.579.2.356 Medicare Medicare [id number] Medicare Medicare Outpatient [id number] Medicare [id number] Unknown [id number] 2.16.840.1.435766.3.579.2.531 Unknown [id number] 2.16.840.1.045221.3.579.2.531 Unknown [id number] 2.16.840.1.506565.3.579.2.531 Social History Date Type Detail Facility Start: 11-10-2021 End: 11-27-2021 No illicit drug use No illicit drug use [facility] [place] [facility] DO Work Phone: Comment on above: some tea; 5 cigarettes; 1 ppd; Start: 07-07-2021 [facility] Start: 1940 Sex Assigned At Male [facility] Start: 11-01-2021 End: 02-02-2022 Exposure to SARS-CoV-2 (event) Not sure [facility] Start: 11-27-2021 End: 12-31-2021 Tobacco smoking status NJIS Smokes tobacco daily [facility] Start: 11-27-2021 End: 12-31-2021 Tobacco use and exposure Former smokeless tobacco user [facility] Start: 11-25-2022 [facility] Start: 11-10-2021 End: 11-27-2021 Tobacco use panel [facility] National Score (1-10 0), lower number is lower risk 83 [facility] Start: 11-16-2021 Gender identity Identifies as male gender (finding) [facility] Start: 11-16-2021 Sexual orientation Heterosexual (ángel colmenares) [facility] Medical Equipment Procedure Code Equipment Code Equipment Origin al Text Equipment Identifier Dates use 1 TEST STRIP to TEST BLOOD SUGAR twice a day Start: 12-13-2021 Comment on above: use 1 TEST STRIP to TEST BLOOD SUGAR twice a day Drug-eluting coronary artery stent, non-bioabsorbable- polymer-coated [id number] FDA Start: 07-08-2021 Kit Endovive 20f r Standard [place] Silicone Peg Pull Method Drea - [id number] Start: 02-02-2022 Clinical Notes 11-10-2021 to 07-28-2022 Hansel Otero PA-C - 07/10/2022 2:14 PM ESTTelephone Encounter - Alissa Lackey RISK MANAGEMENT PROFESSIONAL.NADER - 02/02/2022 2:58 PM EDTTelephone Encounter - Thu Lancaster RN - 01/27/2022 8:21 PM EDT Note Date & Type Note Facility 07-28-2022 Note [facility] 07-28-2022 Note [facility] 07-16-2022 Note [facility] 07-16-2022 Note [facility] 07-10-2022 Note [facility] 07-10-2022 History of Presen t illness Narrative [...] TIME: 2:14 PM documented in this encounter [facility] 02-20-2022 Note [facility] 02-03-2022 Note [facility] 02-03-2022 Note HNO ID: [id number] Author: Elva Farias RN Service: Nursing Author Type: Registered Nurse Type: Nursing Progress Note Filed: 02/03/2022 6:30 AM Note Text: Patient refused turn and ambulation and was educated on benefits. [facility] 02-03-2022 Note [facility] 02-02-2022 Note [facility] 02-02-2022 Miscellaneous Notes Talked with Farideh at [...] Alissa Lackey APRN.CNP documented in this encounter [facility] 01-27-2022 Miscellaneous Notes BMI SPECIALTY CARE [...] NPO after midnight. documented in this encounter [facility] 2022 Note [facility] 2022 History of Presen t illness Narrative [...] DATE: 2022 TIME: 2:56 PM PAGER/CONTACT #: [phone] documented in this encounter [facility] 01-12-2022 Miscellaneous Notes Replied to more recent message regarding MBS. Alissa Lackey APRN.CNP documented in this encounter [facility] 12-31-2021 Note [facility] 12-31-2021 Nurse Note Franki Hernandez is a [...] Naveed Nicholson LPN documented in this encounter [facility] 12-31-2021 History of Presen t illness Narrative Images from the original note were not included. [facility] [place] Department of General Internal Medicine [facility] Outpatient Visit Date: December 31, 2021 CC: Patient presents with: Physiological Problem - GI HPI:Franki Hernandez is a 81 year old male who presents today to the internal medicine department 0 walk in clinic for a complains of list above. 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 Hx angiogram with intervention at [facility] in [place] with bilateral iliac stents and R EIA stent in 2009 (reports not currently available). PCP: Micheal Gutiérrez MD, MD Last visit: Patient lives 80 [place] away from [facility]. He is here with his daughter who provides most of patient's history. Patient has difficulty swallowing , has h/o throat cancer ~ 25 years. His daughter reports 5 years ago, he had a partial resection of epiglottis. 07/06/2021 - he had a massive GA, intubation was difficulty and his throat muscle was stretching. He was on thick liquid and got aspiration PNA, he then got admitted and hospitalization. They decided to put him on NG tube. He started loosing weights ~ 60 lbs. They decided to give him a peg tube , but it was accidentally placed on his colon at [facility] in [place]. States he almost . 11/09/2021- they drove [...] States he saw the speech therapist at [facility] and was told that he could swallow. [...] Myocardial infarction (HCC) PAD (peripheral artery disease) ([facility]) Social History Tobacco Use Smoking status: Every Day Smokeless tobacco: Former ACTIVE PROBLEM LIST Diarrhea Severe Protein-Calorie Malnutrition (Hcc) History of GA (Myocardial Infarction) History of Ptca History of Cardiac Arrest Coronary Artery Disease Involving [place] Coronary Artery of [place] Heart Without Angina Pectoris Encounter for Preoperative [...] with PCP and Gen surg Yadira Frazier APRN.DIRECTOR OF BILLING I spent a total of 35 minutes on the date of the service which included preparing to see the patient, [id number] patient care, completing clinical documentation, obtaining and/or reviewing separately obtained history, performing a medically appropriate examination, counseling and educating the patient/family/caregiver, and care coordination (not separately reported). documented in this encounter [facility] 12-31-2021 History and physical note Images from the original note were not included. 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 Hx angiogram with intervention at [facility] in [place] with bilateral iliac stents and R EIA [...] old male with hx of COPD, recent GA complicated by arrest and transverse colon injury [...] DATE: December 30, 2021 TIME: 9:02 AM [facility] STAFF PHYSICIAN NOTE OF PERSONAL INVOLVEMENT [...] SERVICE: 12:33 PM documented in this encounter [facility] 12-13-2021 Miscellaneous Notes Urology Telephone Note I spoke with pt over the phone today. I explained that her pharmacy does not carry the liquid formation of nitrofurantoin, not does the [facility] in [place]. She reports that she has been able to give him the nitrofurantoin capsules successfully and plans to continue giving it for the rest of the recommended course. Brock Cristina Jr., MD Reconstructive Urology Fellow documented in this encounter [facility] 12-04-2021 Miscellaneous Notes See today's telephone encounter. Alissa Lackey APRN.CNP documented in this encounter [facility] 12-04-2021 Miscellaneous Notes Received prompt call back from daughter. Advised that radiology recommended MRI to further evaluate renal lesion. Instructed her to call [phone] to schedule. Daughter reports that Franki Hernandez cathed after voiding several times, and all PVRs were low (about 45 mL). Advised that they can go ahead and stop ISC. Daughter reports that urine has been cloudy; concerned about infection from having Berry in. Will go to lab at [place] to leave specimen for culture. Daughter reports [...] for daughter, advising that I had seen [employer] messages and CT results. Requested call back at [phone]. Alissa Lackey APRN.DIRECTOR OF BILLING documented in this encounter [facility] 12-02-2021 Note [facility] 12-02-2021 History of Presen t illness Narrative [...] TIME: 10:41 AM documented in this encounter [facility] 11-27-2021 Note [facility] 11-27-2021 Instructions Alissa Lackey APRN.CNP - 11/27/2021 2:20 PM EDT Please call me at [phone] if you have trouble with catheters or other questions. Please call radiology at [phone] of kidneys. 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 Daughter lives in [place]. 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 Franki Hernandez and are probably going to go to [place] with daughter next week, possibly through the winter. Daughter has questions about renal lesion noted on CT. Also has questions about follow up labs mentioned in discharge summary. Pantoprazole suspension not covered by insurance. Frederick Nielsen tried to dispense pills, but these can't go through tube. Daughter wants to know if [facility] pharmacy can ship pantoprazole to their [...] fat-containing left inguinal hernia with focal fluid. Shift Coordinator (topogram) images: No additional findings. = MEDICATIONS: [...] left renal lesion. Reordered pantoprazole suspension to [facility] pharmacy so daughter can investigate availability/pricing/alternativ es. Will message primary team members from discharge summary to let them know that Franki Hernandez needs follow up lab orders. I spent a total of 60 minutes on the date of the service which included preparing to see the patient, [id number] patient care, completing clinical documentation, performing a medically appropriate examination, counseling and educating the patient/family/caregiver, ordering medications, tests, or procedures and communicating with other HCPs (not separately reported). Electronically signed: Alissa Lackey APRN.NADER documented in this encounter [facility] 11-27-2021 Miscellaneous Notes PATIENT INFORMATION Record ID: [id number] Patient Name: [place] [facility]: [facility] [place]: [facility] Attending: Peter Tobar Center: Hospital Medicine INSTRUCTIONS MA to remind patient of appointment date, time, location SURVEY INFORMATION Medical/Nurse Savings Counselor: Ruth Coronel 1. Your discharge instructions are [...] (Standard Question) No documented in this encounter [facility] 11-20-2021 Miscellaneous Notes Patient has been referred to Dr. Idris Hawk for evaluation and treatment. Patient has been diagnosed with PVD. Records are in Care Everywhere and [facility]. Referral information is in Epic under scanned documents. Please advise if any additional testing is needed prior to scheduling. Best Contact: Juli Rodas Railroad Shop Inspector documented in this encounter [facility] 11-19-2021 Note [facility] 11-18-2021 Note [facility] 11-18-2021 Note [facility] 11-17-2021 Note [facility] 11-17-2021 Note [facility] 11-17-2021 Note [facility] 11-16-2021 Note [facility] 11-16-2021 Note [facility] 11-15-2021 Note [facility] 11-15-2021 Note [facility] 11-14-2021 Note [facility] 11-14-2021 Note [facility] 11-14-2021 Note [facility] 11-13-2021 Note [facility] 11-12-2021 Note [facility] 11-12-2021 Note [facility] 11-12-2021 Note [facility] 11-12-2021 Note [facility] 11-11-2021 Note [facility] 11-11-2021 Note [facility] 11-11-2021 Note [facility] 11-11-2021 Note [facility] 11-10-2021 Note [facility] 11-10-2021 Note [facility] 11-10-2021 Note [facility] 11-10-2021 Note [facility] Evaluation note Diagnosis Urinary retention- Primary Retention of urine, unspecified Renal lesion Unspecified disorder of kidney and ureter [facility] Screening for genitourinary condition Screening for other and unspecified genitourinary condition [facility] Diagnosis Cloudy urine- Primary Other nonspecific finding on examination of urine [facility] Diagnosis Screening for genitourinary condition Screening for other and unspecified genitourinary condition documented [facility]* Diagnosis Peripheral arterial disease (HCC)- Primary Peripheral vascular disease, unspecified documented in this encounter [facility] note* Diagnosis Feeding tube blocked, initial encounter- Primary SOB (shortness of breath) on exertion Shortness of breath Chronic cough Cough [facility]* Diagnosis Other specified disorders of kidney and ureter [facility]* Diagnosis Adult failure to thrive- Primary documented in this encounter [facility] noteNo assessment information [facility] Work Phone: Evaluation note* Diagnosis Adult failure to thrive- Primary Pre-op examination Preoperative examination, unspecified Adult failure to thrive Pre-op examination Preoperative examination, unspecified documented in this encounter [facility] note* Diagnosis S/P percutaneous endoscopic gastrostomy (PEG) tube placement (HCC)- Primary documented in [facility]* Diagnosis Onset Date Resolution Status Acute exacerbation of chroni c obstructive pulmonary disease acute Atrial fibrillation acute Diabetes acute Leukocytosis acute Urinary retention acute [facility] Work Phone: Evaluation note* Diagnosis Renal lesion Unspecified disorder of kidney and ureter documented [facility] The patient [...] medication regimen. He denies medication side effects. [facility] [address] DO Work Phone: History of Present [...] medication regimen. He denies medication side effects. [employer] DO Work Phone: History of Present illness [...] medication regimen. He denies medication side effects. [employer] Work Phone: History of Present illness Narrative* [...] medication regimen. He denies medication side effects. [employer] DO Work Phone: Summary Purpose Family History [...] Documents on File Type Date Recorded Patient Hospice Case Manager Expl anation Advance Directive(s) 11/09/2021 9:21 PM Latest Code Status on File Code Status Date Activated Date Inactivated Comments Full Code 11/10/2021 4:09 AM Full Code Order Discussed With: Patient Latest Code Status on File Code Status Date Activated Date Inactivated Comments Full Code 11/10/2021 4:09 AM 11/20/2021 9:01 PM Documents on File Type Date Recorded Patient Hospice Case Manager Expl anation Advance Directive(s) 11/09/2021 9:21 PM [...] pneumonia, aspiration pneumonia, heart failure, non-ST elevation GA with subsequent revascularization of the RCA with [...] today proceeded. Patient was apparently readmitted to [facility] for dehydration/hypovolemia following his discharge from [facility] details of which are unknown. * [...] pneumonia, aspiration pneumonia, heart failure, non-ST elevation GA with subsequent revascularization of the RCA with [...] today proceeded. Patient was apparently read[facility] to [facility] for dehydration/hypovolemia following his discharge from [facility] details of which are unknown. * [...] pneumonia, aspiration pneumonia, heart failure, non-ST elevation GA with subsequent revascularization of the RCA with [...] today proceeded. Patient was apparently readmitted to [facility] ICU for dehydration/hypovolemia following his discharge from [facility] details of which are unknown. * Patient is lost approximately 50 pounds over the past year due to his acute on chronic illnesses. * Recommendations obtain chemistry panel, BNP, echocardiogram to reassess ventricular function, recommend hydration and nutritional supplementation, will follow-up in 6 months * I was [facility] the [facility] * FRANKI HERNANDEZ is being seen for a 4 month follow-up of coronary artery disease and cardiomyopathy. * Patient ambulatory with wheeled walker. * Accompanied by daughter. * Evaluated in clinic Dr. Collins August 2021. * October 2021 hospitalized at [facility] d/t malnutrition. Had PEG removed and [...] has had previous high risk non-ST elevation GA earlier this year July 2021, with subsequent revascularization of the RCA with drug-eluting stent and normalization of his LV function originally from 30 now up to 60% as measured by echo at [facility]. He has underlying peripheral vascular disease, ongoing tobacco use, COPD, history of throat cancer with PEG tube. * He underwent recent hospitalization at [facility] with significant weight loss and debility and [...] has had previous high risk non-ST elevation GA earlier this year July 2021, with subsequent revascularization of the RCA with drug-eluting stent and normalization of his LV function originally from 30 now up to 60% as measured by echo at [facility]. He has underlying peripheral vascular disease, ongoing tobacco use, COPD, history of throat cancer with PEG tube. * He underwent recent hospitalization at [facility] with significant weight loss and debility and [...] ago when he had a non-ST elevation GA associated with pneumonia, and initial ejection fraction [...] ago when he had a non-ST elevation GA associated with pneumonia, and initial ejection fraction [...] * I was in the hospital at [facility] * FRANKI HERNANDEZ is being seen [...] hospitalizations over the past 6 months at [facility] for shortness of breath, dyspnea, A-fib, dehydration with hyperkalemia. * He has known history of ASHD with ischemic cardiomyopathy with improved left ventricular function per last measurement by echo with ejection fraction up to 45 to 50%. 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 * He has chronic dyspnea from a symptomatic standpoint; we will counselor marriage and family him on tobacco cessation for 3 to 5 minutes today; we will follow-up in 6 months with nurse practitioner with no further changes to his medical regimen at this time * FRANKI HERNANDEZ is being seen for med change, soon o/v. * Patient is a 83-year-old gentleman returns for follow-up. He has had several hospitalizations over the past 6 months at [facility] for shortness of breath, dyspnea, A-fib, dehydration with hyperkalemia. * He has known history of ASHD with ischemic cardiomyopathy with improved left ventricular function per last measurement by echo with ejection fraction up to 45 to 50%. 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 * He has chronic dyspnea from a symptomatic standpoint; we will counselor marriage and family him on tobacco cessation for 3 to 5 minutes today; we will follow-up in 6 months with nurse practitioner with no further changes to his medical regimen at this time Reason for Referral Specialty Diagnoses / Procedures Referred By Joni mitchell Referred To Contact CT IMAGING Diagnoses Renal lesion Procedures CT KIDNEY WO/W IVCON CT ABDOMEN W & W/O CONTRAST Alissa Lackey APRN.DIRECTOR OF BILLING [address] [place] [address] Ct Imaging Referral ID Status Reason Start Date Expiration Date Visits Requested Visits Authorized [id number] Pending Review Auto-Generat ed Referral 11/27/2021 12/27/2022 1 1 Specialty Diagnoses / Procedures Referred By Joni mitchell Referred To Contact MR IMAGING Diagnoses Other specified disorders of kidney and ureter Procedures MRI KIDNEY WO/W IVCON MRI ABDOMEN W/O & W/CONTRAST MATERIAL Alissa Lackey APRN.DIRECTOR OF BILLING [address] [place] [address] Mr Imaging Referral ID Status Reason Start Date Expiration Date Visits Requested Visits Authorized [id number] Authorized Auto-Generat ed Referral 12/04/2021 01/03/2023 1 1 Referral ID Status Reason Start Date Expiration Date V isits Requested Visits Authorized [id number] Closed Auto-Generate d Referral 11/27/2021 12/27/2022 1 [...] section and content) DATE CREATED AUTHOR 05/02/2018 [facility] DATE CREATED AUTHOR AUTHOR'S ORGANIZ ATION 11/09/2021 [facility] DATE CREATED AUTHOR AUTHOR'S ORGANIZ ATION 07/16/2022 [facility] DATE CREATED AUTHOR AUTHOR'S ORGANIZ ATION 10/07/2022 [facility] DATE CREATED AUTHOR AUTHOR'S ORGANIZ ATION 12/11/2022 [facility] DATE CREATED AUTHOR AUTHOR'S ORGANIZ ATION 01/02/2023 Nasir Brennan [facility] DATE CREATED AUTHOR AUTHOR'S ORGANIZ ATION 02/06/2023 [facility] DATE CREATED AUTHOR AUTHOR'S ORGANIZ ATION 02/06/2023 [employer] Comments (unrecognize d section and content) In the event this informatio n is protected by the Federal Confidentiality of Alcohol and Drug Abuse Patient Records regulations: The Federal rules restrict any use of the information to criminally investigate or prosecute any alcohol or drug abuse patient.[facility] the event this information is protected by the Federal Confidentiality of Alcohol and Drug Abuse Patient Records regulations: The Federal rules restrict any use of the information to criminally investigate or prosecute any alcohol or drug abuse patient.[facility] the event this information is protected by the Federal Confidentiality of Alcohol and Drug Abuse Patient Records regulations: The Federal rules restrict any use of the information to criminally investigate or prosecute any alcohol or drug abuse patient.[facility] the event this information is protected by the Federal Confidentiality of Alcohol and Drug Abuse Patient Records regulations: The Federal rules restrict any use of the information to criminally investigate or prosecute any alcohol or drug abuse patient.[facility] the event this information is protected by the Federal Confidentiality of Alcohol and Drug Abuse Patient Records regulations: The Federal rules restrict any use of the information to criminally investigate or prosecute any alcohol or drug abuse patient.[facility] the event this information is protected by the Federal Confidentiality of Alcohol and Drug Abuse Patient Records regulations: The Federal rules restrict any use of the information to criminally investigate or prosecute any alcohol or drug abuse patient.[facility] the event this information is protected by the Federal Confidentiality of Alcohol and Drug Abuse Patient Records regulations: The Federal rules restrict any use of the information to criminally investigate or prosecute any alcohol or drug abuse patient.[facility] the event this information is protected by the Federal Confidentiality of Alcohol and Drug Abuse Patient Records regulations: The Federal rules restrict any use of the information to criminally investigate or prosecute any alcohol or drug abuse patient.[facility] Hospital[facility] the event this information is protected by the Federal Confidentiality of Alcohol and Drug Abuse Patient Records regulations: The Federal rules restrict any use of the information to criminally investigate or prosecute any alcohol or drug abuse patient.[facility] Hospital[facility] the event this information is protected by the Federal Confidentiality of Alcohol and Drug Abuse Patient Records regulations: The Federal rules restrict any use of the information to criminally investigate or prosecute any alcohol or drug abuse patient.[facility] Hospital[facility] the event this information is protected by the Federal Confidentiality of Alcohol and Drug Abuse Patient Records regulations: The Federal rules restrict any use of the information to criminally investigate or prosecute any alcohol or drug abuse patient.[facility] Hospital[facility] the event this information is protected by the Federal Confidentiality of Alcohol and Drug Abuse Patient Records regulations: The Federal rules restrict any use of the information to criminally investigate or prosecute any alcohol or drug abuse patient.[facility] Hospital[facility] the event this information is protected by the Federal Confidentiality of Alcohol and Drug Abuse Patient Records regulations: The Federal rules restrict any use of the information to criminally investigate or prosecute any alcohol or drug abuse patient.[facility] Hospital[facility] the event this information is protected by the Federal Confidentiality of Alcohol and Drug Abuse Patient Records regulations: The Federal rules restrict any use of the information to criminally investigate or prosecute any alcohol or drug abuse patient.[facility] Hospital[facility] the event this information is protected by the Federal Confidentiality of Alcohol and Drug Abuse Patient Records regulations: The Federal rules restrict any use of the information to criminally investigate or prosecute any alcohol or drug abuse patient.[facility] Hospital[facility] the event this information is protected by the Federal Confidentiality of Alcohol and Drug Abuse Patient Records regulations: The Federal rules restrict any use of the information to criminally investigate or prosecute any alcohol or drug abuse patient.[facility] Hospital[facility] the event this information is protected by the Federal Confidentiality of Alcohol and Drug Abuse Patient Records regulations: The Federal rules restrict any use of the information to criminally investigate or prosecute any alcohol or drug abuse patient.[facility] Hospital[facility] the event this information is protected by the Federal Confidentiality of Alcohol and Drug Abuse Patient Records regulations: The Federal rules restrict any use of the information to criminally investigate or prosecute any alcohol or drug abuse patient.[facility] Hospital[facility] the event this information is protected by the Federal Confidentiality of Alcohol and Drug Abuse Patient Records regulations: The Federal rules restrict any use of the information to criminally investigate or prosecute any alcohol or drug abuse patient.[facility] Reason for Visit (unrecogniz ed section [...] ABDOMEN W/O & W/CONTRAST MATERIAL Alissa Lackey, RISK MANAGEMENT PROFESSIONAL.DIRECTOR OF BILLING [address] [place] [address] Mr Imaging Referral ID Status Reason Start Date Expiration Date Visits Requested Visits Authorized [id number] Authorized Auto-Generat ed Referral 12/04/2021 01/03/2023 1 1 Reason Comments Established Patient Reason Comments 01/28/2022 Reason Comments Patient Update Reason Comments Medication Problem Reason Onset Date Comments Opened In Error 02/17/2022 Specialty Diagnoses / Procedures Referred By Joni t Referred To Contact CT IMAGING Diagnoses Renal lesion Procedures CT KIDNEY WO/W IVCON CT ABDOMEN W & W/O CONTRAST Alissa Lackey, RISK MANAGEMENT PROFESSIONAL.DIRECTOR OF BILLING [address] [place] [address] Ct Imaging Referral ID Status Reason Start Date Expiration Date V isits Requested Visits Authorized [id number] Closed Auto-Generate d Referral 11/27/2021 12/27/2022 1 1 Care Teams (unrecognized sec tion and content) Team Status: Active Member Role Status Dates Micheal Gutiérrez MD Primary Care Provider Active Team Status: Active Member Role Status Dates Micheal Gutiérrez MD Primary Care Provider Active Shukri Francisco MD Emergency Provider Active Jean-Pierre Otero DO Admit Provider, Attending Provider Active Gas Appliance Mechanic Relationship Specialty Start Date End Date Micheal Gutiérrez MD [address] [place] [address] PCP - General Family Practice 11/10/21 Gas Appliance Mechanic Relationship Specialty Start Date End Date Micheal Gutiérrez MD [address] [place] [address] PCP - General Family Practice 11/10/21 Gas Appliance Mechanic Relationship Specialty Start Date End Date Micheal Gutiérrez MD [address] [place] [id number] PCP - General Family Practice 11/10/21 Gas Appliance Mechanic Relationship Specialty Start Date End Date Micheal Gutiérrez MD [address] [place] [id number] PCP - General Family Practice 11/10/21 Gas Appliance Mechanic Relationship Specialty Start Date End Date Micheal Gutiérrez MD [address] [place] [id number] PCP - General Family Practice 11/10/21 Gas Appliance Mechanic Relationship Specialty Start Date End Date Micheal Gutiérrez MD [address] [place] [id number] PCP - General Family Practice 11/10/21 Gas Appliance Mechanic Relationship Specialty Start Date End Date Micheal Gutiérrez MD [address] [place] [id number] PCP - General Family Practice 11/10/21 Gas Appliance Mechanic Relationship Specialty Start Date End Date Micheal Gutiérrez MD [address] [place] [id number] PCP - General Family Practice 11/10/21 Gas Appliance Mechanic Relationship Specialty Start Date End Date Micheal Gutiérrez MD [address] [place] [address] PCP - General Family Practice 11/10/21 Gas Appliance Mechanic Relationship Specialty Start Date End Date Micheal Gutiérrez MD [address] [place] [address] PCP - General Family Practice 11/10/21 Gas Appliance Mechanic Relationship Specialty Start Date End Date Micheal Gutiérrez MD [address] [place] [address] PCP - General Family Practice 11/10/21 Gas Appliance Mechanic Relationship Specialty Start Date End Date Micheal Gutiérrez MD [address] [place] [id number] PCP - General Family Practice 11/10/21 Team Status: Inactive Member Role Status Dates Micheal Gutiérrez MD Primary Care Provider Active Dino Guzman MD Attending Provider Active Gas Appliance Mechanic Relationship Specialty Start Date End Date Micheal Gutiérrez MD [address] [place] [id number] PCP - General Family Practice 11/10/21 Gas Appliance Mechanic Relationship Specialty Start Date End Date Micheal Gutiérrez MD [address] [place] [id number] PCP - General Family Practice 11/10/21 Gas Appliance Mechanic Relationship Specialty Start Date End Date Micheal Gutiérrez MD [address] [place] [id number] PCP - General Family Medicine 11/10/21 Gas Appliance Mechanic Relationship Specialty Start Date End Date Micheal Gutiérrez MD [address] [place] [address] PCP - General Family Medicine 11/10/21 Gas Appliance Mechanic Relationship Specialty Start Date End Date Micheal [...] BE BASED ON THE PRIMARY CLINICAL RECORDS. [facility]. provides no warranty or guarantee of the accuracy or completeness of information in this document.
--- NOTE | 2023-05-22 19:13 | ECG_ITS ---
The [facility] Test Date: 2023-05-22 Pat Name: FRANKI VELA Department: Room: - Gender: Male Senior Supplier Quality Engineer: : 1940 Requested By: MICHEAL GUTIÉRREZ Order Number: [id number] Reading MD: MICHEAL GUTIÉRREZ Measurements Intervals [place] Rate: 76 P: -64 NM: 120 QRS: 37 QRSD: 74 T: 33 QT: 408 QTc: 438 Interpretive Statements 1320 Rapid junctional rhythm 9140 abnormal rhythm ECG Compared to ECG 05/14/2023 22:43:39 Junctional rhythm now present Sinus tachycardia no longer present Electronically Signed On 05-27-2023 7:14:39 EST by MICHEAL GUTIÉRREZ
--- NOTE | 2023-05-22 19:13 | XR_ITS ---
The [address] [address] Patient Name: FRANKI VELA MRN: [id number] date: 1940 Sex: M Assigned Patient Location: ER Current Patient Location: ER Accession/Order Number: [id number] Exam Date: 05/22/2023 19:18 Report Date: 05/22/2023 20:12 At the request of: MIYA SIDDIQUI Procedure: XR chest 1V EXAM: XR chest 1V TECHNIQUE: Single AP view chest HISTORY: weak, recent pneumonia COMPARISON: 05/18/2023 FINDINGS: The heart is enlarged. Interval improvement in patchy right base airspace opacity. Pulmonary venous congestion is seen. Osseous structures are intact. XR/XR chest 1V IMPRESSION: Interval improvement in right base airspace disease. Pulmonary venous congestion. Electronically authenticated by: SHONA AMAYA Date: 05/22/2023 20:12
--- NOTE | 2023-05-22 19:17 | ED.GENADUL1 ---
HPI - General Adult General Chief complaint: Fall Stated complaint: back pain-fall Time Seen by Provider: 05/22/23 18:40 Source: patient and family Mode of arrival: Wheelchair Limitations: no limitations History of Present Illness HPI narrative: 83-year-old male presents to the emergency department for vague reasons. He comes in from home and is coming by his daughter who does most of the speaking. The patient states he is here because of pneumonia and the daughter states she is here because he fell. He had been diagnosed with pneumonia and was admitted to this hospital and went home five or six days ago. Four days ago he fell in his home and was ordered outpatient x-rays which were performed. In reviewing these it appears that he has rib fractures, acute. No pneumothorax. He complains of weakness and wants something for pain. No fever. Related Data Home Medications Medication Instructions Recorded Confirmed albuterol sulfate 90 mcg/actuation 1 inh inhalation Q4H PRN shortness 11/10/22 05/15/23 aerosol inhaler (ProAir HFA) of breath or wheezing apixaban 2.5 mg tablet (Eliquis) 2.5 mg PO BID 11/10/22 05/15/23 finasteride 5 mg tablet 5 mg PO DAILY 11/10/22 05/15/23 hydrocodone 10 mg-acetaminophen 1 tab PO Q4H PRN pain 11/10/22 05/15/23 325 mg tablet insulin glargine 100 unit/mL (3 30 unit subcut DAILY 11/10/22 05/15/23 mL) subcutaneous pen (Lantus Solostar U-100 Insulin) levothyroxine 75 mcg capsule 75 mcg PO DAILY 11/10/22 05/15/23 pantoprazole 40 mg tablet,delayed 40 mg PO DAILY 11/10/22 05/15/23 release atorvastatin 20 mg tablet (Lipitor) 20 mg PO QPM 12/07/22 05/15/23 carvedilol 12.5 mg tablet 12.5 mg feeding tube QDAY 12/07/22 05/15/23 calcitonin (salmon) 200 1 spray intranasal (ALT) QDAY 12/18/22 05/15/23 unit/actuation nasal spray ondansetron 4 mg disintegrating 4 mg PO QID PRN nausea and vomiting 12/18/22 05/15/23 tablet albuterol sulfate 2.5 mg/3 mL 2.5 mg inhalation Q6H PRN 05/15/23 05/15/23 (0.083 %) solution for nebulization shortness of breath or wheezing budesonide 0.5 mg/2 mL suspension 0.5 mg inhalation Q12H PRN 05/15/23 05/15/23 for nebulization shortness of breath or wheezing water for irrigation, sterile 120 ml G-tube TID 05/15/23 05/15/23 Previous Rx's Medication Instructions Recorded amino acids-protein hydrolysate 15 1 ea G-tube BID #2,880 mL 05/18/23 gram-100 kcal/30 mL oral liquid pkt (Pro-Stat Sugar Free) arginine 7 gram-glutam 7 1 packet G-tube BID #60 ea 05/18/23 gram-CaHMB 1.5 [id number]-min oral pwd pkt (Osorio (with collagen)) fluconazole 200 mg tablet 200 mg PO DAILY #14 tabs 05/18/23 (Diflucan) levofloxacin 750 mg tablet 750 mg PO DAILY 10 days #10 tabs 05/18/23 nut.tx.gluc.intol,lac-free,soy 1 ea G-tube Q4H #42,660 mL 05/18/23 (Glucerna Shake oral liquid) prednisone 10 mg tablet 50 mg (5 x 10 mg) PO DAILY #47 tabs 05/18/23 Allergies Allergy/AdvReac Type Severity Reaction Status Date / Time No Known Drug Allergies Allergy Verified 05/22/23 18:28 Review of Systems ROS Narrative A ten point review of systems is negative except as noted above. [facility] Medical History (Updated 05/22/23 @ 20:29 by Emeterio Alaniz MD) Adult failure to thrive ?R62.7 - Adult failure to thrive (ICD-10) Hypothyroidism ?E03.9 - Hypothyroidism, unspecified (ICD-10) STACY (acute kidney injury) ?N17.9 - Acute kidney failure, unspecified (ICD-10) Metabolic encephalopathy ?G93.41 - Metabolic encephalopathy (ICD-10) Aspiration pneumonia ?J69.0 - Pneumonitis due to inhalation of food and vomit (ICD-10) Vomiting ?R11.10 - Vomiting, unspecified (ICD-10) Right middle lobe pneumonia ?J18.9 - Pneumonia, unspecified organism (ICD-10) Decubitus ulcer of coccygeal region ?L89.159 - Pressure ulcer of sacral region, unspecified stage (ICD-10) Back pain ?M54.9 - Dorsalgia, unspecified (ICD-10) COPD (chronic obstructive pulmonary disease) (Unknown) ?J44.9 - Chronic obstructive pulmonary disease, unspecified (ICD-10) Acute hyperkalemia ?E87.5 - Hyperkalemia (ICD-10) Acute dehydration ?E86.0 - Dehydration (ICD-10) Community acquired pneumonia ?J18.9 - Pneumonia, unspecified organism (ICD-10) History of gastrostomy tube placement History of arthritis ?Z87.39 - Personal history of other diseases of the musculoskeletal system and connective tissue (ICD-10) History of diabetes mellitus ?Z86.39 - Personal history of other endocrine, nutritional and metabolic disease (ICD-10) History of COPD ?Z87.09 - Personal history of other diseases of the respiratory system (ICD-10) History of throat cancer ?Z85.819 - Personal history of malignant neoplasm of unspecified site of lip, oral cavity, and pharynx (ICD-10) History of ID (myocardial infarction) ?I25.2 - Old myocardial infarction (ICD-10) History of compression fracture of spine ?Z87.81 - Personal history of (healed) traumatic fracture (ICD-10) Surgical History (Updated 11/10/22 @ 12:02 by Ronnie Rosado) History of colonoscopy ?Z98.890 - Other specified postprocedural states (ICD-10) History of esophagogastroduodenoscopy (EGD) ?Z98.890 - Other specified postprocedural states (ICD-10) History of heart artery stent ?Z95.5 - Presence of coronary angioplasty implant and graft (ICD-10) Social History (Updated 05/15/23 @ 02:42 by Arturo Oliveros) Within the past year, how often did you have a drink containing alcohol: never Score interpretation: A score less than 4 is consistent with normal alcohol consumption. Smoking status: Current every day smoker Nicotine containing products detail: 66 1 pack per day Non-prescribed substance use: denies use Previous occupational history: retired Highest level of school completed/degree received: high school graduate Are you now , , , , never or living with a partner: In a typical week, how many times do you talk on the telephone with family, friends, or neighbors: 3 or more times per week How often do you get together with friends or relatives: 3 or more times per week How often do you attend muslim or worship services: never Do you belong to any clubs or organizations such as muslim groups unions, fraternal or athletic groups, or school groups: no Total score: 2 Score interpretation: A score of greater than or equal to 2 indicates the lowest level of social isolation. Little interest or pleasure in doing things: several days Feeling down, depressed, or hopeless: several days Feel stressed/tense/nervous/anxious/difficulty sleeping: not at all Do you think of yourself as: straight/heterosexual Gender Identity: male Exam Narrative Exam Narrative: Nurses note and vital signs reviewed and patient is not hypoxic. General: The patient appears thin and frail and weak. he can only speak in a whisper. Skin: Warm, dry, no pallor noted. There is no rash noted. Head: Normocephalic, atraumatic Eye: Normal conjunctiva, no drainage Ears, Nose, Mouth, and Throat: oral mucosa is moist. Nares patent. Cardiovascular: Regular Rate and Rhythm Respiratory: Patient is in no distress, no accessory muscle use, bilateral rhonchi present Back: tenderness in the posterior rib region. No crepitus. GI: soft and nontender Musculoskeletal: recent very small skin tear the right elbow. Neurological: awake and alert Psychiatric: Cooperative Constitutional Vital Signs, click to edit/add: Last Vital Signs Temp 97.4 F L 05/22/23 18:28 Pulse 83 05/22/23 18:28 Resp 18 05/22/23 18:28 BP 123/60 05/22/23 18:28 Pulse Ox 90 L 05/22/23 18:28 O2 Del Method Room Air 05/22/23 18:28 Course Vital Signs Vital signs: Vital Signs Temperature 97.4 F L 05/22/23 18:28 Pulse Rate 83 05/22/23 18:28 Respiratory Rate 18 05/22/23 18:28 Blood Pressure 123/60 05/22/23 18:28 Pulse Oximetry 90 L 05/22/23 18:28 Oxygen Delivery Method Room Air 05/22/23 18:28 Temperature 97.4 F L 05/22/23 18:28 Pulse Rate 83 05/22/23 18:28 Respiratory Rate 18 05/22/23 18:28 Blood Pressure 123/60 05/22/23 18:28 Pulse Oximetry 90 L 05/22/23 18:28 Oxygen Delivery Method Room Air 05/22/23 18:28 Medical Decision Making MDM Narrative Medical decision making narrative: The patient has three nondisplaced rib fractures, no pneumothorax. The injury happened four days ago and those x-rays were performed three days ago. Family is concerned because she's been weak and not getting up and he's being admitted. Findings are discussed with the patient and his family. The recent pneumonias improved on the chest x-ray. Lab Data Lab results reviewed: Yes I reviewed the patient's lab results Labs: Lab Results 05/22/23 Range/Units 19:00 WBC 21.4 H (4.0-11.0) 10^3/uL RBC 3.38 L (4.70-6.10) 10^6/uL Hgb 10.2 L (14.0-18.0) g/dL Hct 33.7 L (42.0-54.0) % MCV 99.7 H (80.0-94.0) fL MCH 30.2 (25.9-34.0) pg MCHC 30.3 (29.9-35.2) g/dL RDW 13.8 (11.0-15.0) % Plt Count 310 (150-450) 10^3/uL MPV 10.0 (9.5-13.5) fL Seg Neuts % (Manual) 92.0 Lymphocytes % (Manual) 2.0 L (20.5-60.0) % Monocytes % (Manual) 5.0 (1.7-12.0) % Eosinophils % (Manual) 0.0 L (0.9-7.0) % Basophils % (Manual) 0.0 L (0.2-2.0) % Myelocytes % 1.0 Neutrophils # (Manual) 19.68 H (1.4-6.5) 10^3/uL Lymphocytes # (Manual) 0.42 L (1.20-3.80) 10^3/uL Monocytes # (Manual) 1.07 H (0.30-0.80) 10^3/uL Eosinophils # (Manual) 0.00 (0.00-0.70) 10^3/uL Basophils # (Manual) 0.00 (0.00-0.10) 10^3/uL Myelocytes # 0.21 Hypochromasia 3+ Poikilocytosis 3+ Anisocytosis 2+ Sodium 142 (136-145) mmol/L Potassium 4.5 (3.5-5.1) mmol/L Chloride 106 (98-107) mmol/L Carbon Dioxide 30.7 (21.0-32.0) mmol/L Anion Gap 9.8 BUN 65.0 H (7.0-18.0) mg/dL Creatinine 1.43 H (0.70-1.30) mg/dL Est GFR ( Amer) 58 L (>=60) Est GFR (Non-Af Amer) 47 L (>=60) BUN/Creatinine Ratio 45.5 Glucose 185 H (74-106) mg/dL Calcium 8.9 (8.5-10.1) mg/dL Troponin I High Sens 14.8 (4.0-76.1) pg/mL Ethanol Quant <3 mg/dL Imaging Data Chest x-ray: Radiologist's impression: Procedure: XR chest 1V EXAM: XR chest 1V TECHNIQUE: Single AP view chest HISTORY: weak, recent pneumonia COMPARISON: 05/18/2023 FINDINGS: The heart is enlarged. Interval improvement in patchy right base airspace opacity. Pulmonary venous congestion is seen. Osseous structures are intact. IMPRESSION: Interval improvement in right base airspace disease. Pulmonary venous congestion. Electronically authenticated by: SHONA AMAYA Date: 05/22/2023 20:12 Discharge Plan Discharge Chief Complaint: Fall Clinical Impression: Closed rib fracture, Generalized weakness Patient Disposition: Admitted as Observation Time of Disposition Decision: 20:29 Condition: Good
[2023-05-22 19:19] LABS: Hematocrit 33.7 % (42.0-54.0); Hemoglobin 10.2 g/dL (14.0-18.0); Mean Corpuscular HGB Conc 30.3 g/dL (29.9-35.2); Mean Corpuscular Hemoglobin 30.2 pg (25.9-34.0); Mean Corpuscular Volume 99.7 fL (80.0-94.0); Platelet Count 310 10^3/uL (150-450); Red Blood Count 3.38 10^6/uL (4.70-6.10); Red Cell Distribution Width 13.8 % (11.0-15.0); White Blood Count 21.4 10^3/uL (4.0-11.0)
[2023-05-22 19:34] LABS: Anion Gap 9.8; BUN Creatinine Ratio 45.5; Calcium 8.9 mg/dL (8.5-10.1); Carbon Dioxide 30.7 mmol/L (21.0-32.0); Chloride 106 mmol/L (98-107); Estimated GFR (African America 58 (>=60); Estimated GFR (Non-African Ame 47 (>=60); Glucose 185 mg/dL (74-106); Potassium 4.5 mmol/L (3.5-5.1); Sodium 142 mmol/L (136-145); Troponin I High Sensitivity 14.8 pg/mL (4.0-76.1)
[2023-05-22 19:39] LABS: Segmented Neut Absolute Manual 19.68 10^3/uL (1.4-6.5)
[2023-05-22 19:40] LABS: Anisocytosis 2+; Hypochromasia 3+; Lymphocytes Absolute Manual 0.42 10^3/uL (1.20-3.80); Monocytes Absolute Manual 1.07 10^3/uL (0.30-0.80); Myelocytes Absolute Manual 0.21; Poikilocytosis 3+
[2023-05-22] MEDS: MORPHINE SULFATE 4 MG/ML VIAL IV (19:44)
[2023-05-22 20:02] LABS: Ethanol <3 mg/dL
[2023-05-22 21:03] VITALS: BP 118/65; PULSE 74; RESP 18; O2SAT 99
--- OUTSIDE RECORDS SUMMARY | 2023-05-22 22:16 | XMS_ITS | CCD ---
Author Name Unknown Address [address] [place] [address] Organization [facility] Care Team Providers Care 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 Name Role Phone PHYSICIAN, DEFAULT Unavailable Unavailable PHYSICIAN, DEFAULT Unavailable Unavailable Micheal Gutiérrez Unavailable Unavailable Unavailable Micheal Gutiérrez MD Primary Care Provider [phone] Micheal Gutiérrez MD Primary Care Provider [phone] Unavailable Unavailable MD Micheal Gutiérrez Primary Care Provider [phone] MD Bret Guzmande Attending Provider Micheal Gutiérrez MD Primary Care Provider [phone] Micheal Gutiérrez MD Primary Care Provider [phone] MICHEAL GUTIÉRREZ Primary Care Unavailable IDRIS [...] BURTON Primary Care Unavailable HOY ., DR BURTNO Attending Unavailable HOY ., DR BURTON Admitting [...] Unavailable HOY ., DR BURTON Consulting Unavailable STERRETT, DR YENIFER Puckett Consulting Unavailable HOY ., [...] Unavailable MD Micheal Gutiérrez Primary Care Provider [phone] MD Shukri Francisco Emergency Provider DO Jean-Pierre Otero Admit Provider DO Jean-Pierre Otero Attending Provider [phone] Micheal Gutiérrez Primary Care Unavailable Abushawer, Osama [...] Consulting Unavailable Rea Avalos Consulting Unavailable Suleman, vIett Najeganesh Consulting Unavailab Maggie Vidales Consulting Unavailable Indira Borges Consulting Unavailable Patsy Pantoja Consulting Unavailable Micheal Gutiérrez MD Primary Care Provider [phone] Lauro Collins Attending Unava robb [...] (14 sources) diphenhydrAMINE; Translations: [diphenhydrAMINE] Drug Allergy [facility] y 250 DO Work Phone: (20 sources) Ticagrelor; Translations: [Brilinta TABS] Drug Allergy 2 Shortness of Breath [facility] (9 sources) Angiotensin Converting Enzyme (Jennifer) Inhibitors; Translations: [JENNIFER Inhibitors] Allergy to drug (finding) Hypotension [facility] y 250 DO Work Phone: (1 source) Ticagrelor; Translations: [TICAGRELOR] Drug Allergy 2 [facility] (5 sources) Aspirin; Translations: [Aspirin TABS] Drug Allergy Other [facility] y 250 DO Work Phone: (1 source) diphenhydrAMINE Drug Allergy 3 [facility] Repository Medications Current Medications Medication Drug Class(es) [...] Comment on above: Take 1 capsule by [facility] twice daily for 7 days. spironolactone [...] Comment on above: Take 1 tablet by [facility] twice daily. atorvastatin 20 mg oral [...] 90 mL pre and post bolus feeds 42212 mL 02/03/2022 Active Comment on above: 250 [...] anticoagulants] Episodic Other aftercare (1 source) Other ad terminal makeup operator (current) drug therapy; Translations: [OTH CONVOLUTE TUBE WINDER CURRENT DRUG THERAPY] Onset: 10-06-2022 Episodic Other aftercare (1 source) exterminator helper (current) use of anticoagulants; Translations: [HALF-WAY CURRNT USE ANTICOAGULANTS] Onset: 10-06-2022 Episodic Other aftercare (1 source) exterminator helper (current) use of insulin; Translations: [CONVOLUTE TUBE WINDER CURRENT USE OF INSULIN] Onset: 10-06-2022 Episodic [...] C) (428.0) (I50.9) 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 (414.01) (I25.10) History of PTCA (V45.82) (Z98.61) Ischemic cardiomyopathy (414.8) (I25.5) Paroxysmal atrial fibrillation (427.31) (I48.0) PVD (peripheral vascular disease) (443.9) (I73.9) Hyperlipidemia (272.4) (E78.5) Diabetes mellitus (250.00) (E11.9) Current smoker (305.1) (F17.200) 1 ppd History of throat cancer (V10.02) (Z85.819) COPD (chronic obstructive pulmonary disease) (496) (J44.9) History of CT (myocardial infarction) (412) (I25.2) History of MRSA infection (V12.04) (Z86.14) Orders Body mass index (BMI) of 19.9 or less in adult Healthy Weight Tips; Status:Complete - Retrospective Authorization; Done: [id number] CHF (NYHA class II, ACC/AHA stage C), Health Maintenance, History of CT (myocardial infarction), Ischemic cardiomyopathy Renew: dilTIAZem HCl ER 60 MG Oral Capsule Extended Release 12 Hour; TAKE 0.5 CAPSULE Twice daily CHF (NYHA class II, ACC/AHA stage C), History of CT (myocardial infarction), History of PTCA Renew: Eliquis 5 MG Oral Tablet; Take 1 tablet twice daily CHF (NYHA class II, ACC/AHA stage C), Paroxysmal atrial fibrillation Renew: Carvedilol 12.5 MG Oral Tablet; TAKE 1/2 TABLET TWICE DAILY 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, Hyperlipidemia Renew: Atorvastatin [...] we can help. You may also call [phone]-DHPIXbyMeNOW for free resources and assistance.; Status:Complete - Retrospective Authorization; Done: [id number] Tobacco Use Screening; Status:Complete; Done: [id number] Patient Instructions Please bring all medicines, vitamins, [...] hospitalizations over the past 6 months at [facility] for shortness of breath, dyspnea, A-fib, dehydration with hyperkalemia. He has known history of ASHD with ischemic cardiomyopathy with improved left ventricular function per last measurement by echo with ejection fraction up to 45 to 50%. 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 Cardizem SR 60 MG CP121/2 tab twice daily Carvedilol 12.5 MG Oral TabletTAKE 1/2 TABLET TWICE DAILY. Constulose [id number] in moring Eliquis 5 MG Oral TabletTake [...] 09/11/2021 9:51 (more content not included)... Normal [employer] Tobacco Screening.on 023 Fall risk assessment b) One or more fall s in the last year [facility] [employer] 250 DO Work Phone: Tobacco use status [facility] a) Yes [facility] [employer] 250 DO Work Phone: Tobacco Screening. Yes [facility] marika 250 DO Work Phone: Lab Reportson 01-01-2023 Lab Reports [id number]#1.00CD:127 [facility] Lab Reports [id number]#1.00CD:127 [facility] Lab Reports [id number]#1.00CD:127 [facility] Lab Reports [id number]#1.00CD:127 [facility] Lab Reports [id number]#1.00CD:127 [facility] Lab Reports [id number]#1.00CD:127 [facility] Lab Reports [id number]#1.00CD:127 [facility] Lab Reports [id number]#1.00CD:127 [facility] Lab Reports [id number]#1.00CD:127 [facility] Lab Reports [id number]#1.00CD:127 [facility] Reportson 12-21-2022 Lab Reports [id number]#1.00CD:127 [facility] Lab Reports [id number]#1.00CD:127 [facility] Lab Reports [id number]#1.00CD:127 [facility] Lab Reports [id number]#1.00CD:127 Normal [facility] Lab Reports [id number]#1.00CD:127 Normal [facility] Lab Reports [id number]#1.00CD:127 Normal [facility] Lab Reports [id number]#1.00CD:127 Normal [facility] Lab Reports [id number]#1.00CD:127 [facility] Lab Reports [id number]#1.00CD:127 Normal [facility] Lab Reports [id number]#1.00CD:127 Normal [facility] Lab Reports [id number]#1.00CD:127 Normal [facility] Basic Metabolic Panelon 11-21 Anion gap [Moles/Vol] Not performed Normal 6.0-15.0 [facility] Comment on above: Performed By: #### M G, TSH3, CBC, DIFF CBC, PT, PTT, CMP #### [facility] [address] [place] [id number] [place] Calcium [Mass/Vol] 8.7 mg/dL Normal 8.6-10.3 [facility] Comment on above: Performed By: #### M G, TSH3, CBC, DIFF CBC, PT, PTT, CMP #### [facility] [address] [place] [address] [place] Chloride [Moles/Vol] 102 mmol/L Normal 98-107 [facility] Comment on above: Performed By: #### M G, TSH3, CBC, DIFF CBC, PT, PTT, CMP #### [facility] [address] [place] [address] [place] CO2 [Moles/Vol] 27.9 mmol/L Normal 21.0-31.0 [facility] Comment on above: Performed By: #### M G, TSH3, CBC, DIFF CBC, PT, PTT, CMP #### [facility] [address] Creatinine [Mass/Vol] 0.93 mg/dL Normal 0.70-1.30 [facility] Comment on above: Performed By: #### M G, TSH3, CBC, DIFF CBC, PT, PTT, CMP #### [facility] [address] [place] [address] [place] Creatinine Clr Calc Pharmacy 55.[address] [facility] Comment on above: Performed By: #### M G, TSH3, CBC, DIFF CBC, PT, PTT, CMP #### [facility] [address] [place] [address] [place] GFR/1.73 sq M.predicted MDRD (S/P/Bld) [Vol rate/Area] mL/min/{1.73_m2} [facility] Comment on above: Performed By: #### M G, TSH3, CBC, DIFF CBC, PT, PTT, CMP #### [facility] [address] Glucose [Mass/Vol] 173 mg/dL Significant change up 70-100 [facility] Comment on above: Result Comment: [facility] Glucose Reference Range is dependent on time and content of last meal. Glucose of more than 200 mg/dL in a nonstressed, ambulatory subject supports the diagnosis of Diabetes Mellitus. ADA recommended reference range Performed By: #### M G, TSH3, CBC, DIFF CBC, PT, PTT, CMP #### [facility] [address] Potassium Normal 3.5-5.1 [facility] Comment on above: Result Comment: Spec imen hemolyzed, redraw requested Performed By: #### M G, TSH3, CBC, DIFF CBC, PT, PTT, CMP #### [facility] [address] Sodium [Moles/Vol] 136 mmol/L Normal 136-145 [facility] Comment on above: Performed By: #### M G, TSH3, CBC, DIFF CBC, PT, PTT, CMP #### [facility] [address] [place] [address] Urea nitrogen [Mass/Vol] 47 mg/dL High 7-25 [facility] Comment on above: Performed By: #### M G, TSH3, CBC, DIFF CBC, PT, PTT, CMP #### [facility] [address] [place] [address] [place] Diff and CBCon 11-30-2022 Basophils/100 WBC (Bld) 0 % Normal 0-2 [facility] Comment on above: Performed By: #### M G, TSH3, CBC, DIFF CBC, PT, PTT, CMP #### [address] Eosinophils/100 WBC (Bld) 0 % Low 1-3 [facility] Comment on above: Performed By: #### M G, TSH3, CBC, DIFF CBC, PT, PTT, CMP #### [address] Erythrocyte distribution width (RBC) [Ratio] 13.4 % Normal 12.0-14.8 [facility] Comment on above: Performed By: #### M G, TSH3, CBC, DIFF CBC, PT, PTT, CMP #### [address] Hematocrit (Bld) [Volume fraction] 33.4 % Low 38.8-50.0 [facility] Comment on above: Performed By: #### M G, TSH3, CBC, DIFF CBC, PT, PTT, CMP #### [address] Hemoglobin (Bld) [Mass/Vol] 11.3 g/dL Low 13.0-17.0 [facility] Comment on above: Performed By: #### M G, TSH3, CBC, DIFF CBC, PT, PTT, CMP #### [place] [address] [place] Lymphocytes/100 WBC (Bld) 13 % Low 18-42 [facility] Comment on above: Performed By: #### M G, TSH3, CBC, DIFF CBC, PT, PTT, CMP #### [address] MCH (RBC) [Entitic mass] 31.2 pg Normal 27.5-35.2 [facility] Comment on above: Performed By: #### M G, TSH3, CBC, DIFF CBC, PT, PTT, CMP #### [address] MCV (RBC) [Entitic vol] 92.4 fL Normal 83.5-101 [facility] Comment on above: Performed By: #### M G, TSH3, CBC, DIFF CBC, PT, PTT, CMP #### [address] Mean Corpuscular HGB Conc 33.7 g/dL Normal 32.5-35.6 [facility] Comment on above: Performed By: #### M G, TSH3, CBC, DIFF CBC, PT, PTT, CMP #### [address] Microcytosis Slight Normal [facility] Comment on above: Performed By: #### M G, TSH3, CBC, DIFF CBC, PT, PTT, CMP #### [address] Monocytes/100 WBC (Bld) 5 % Normal 2-11 [facility] Comment on above: Performed By: #### M G, TSH3, CBC, DIFF CBC, PT, PTT, CMP #### [address] Ovalocytes Slight Normal [facility] Comment on above: Performed By: #### M G, TSH3, CBC, DIFF CBC, PT, PTT, CMP #### [address] Platelet Estimate Normal Normal Normal [facility] Comment on above: Result Comment: --- 11/30/22 0728 --- Plt Est previously reported as: Decreased Performed By: #### M G, TSH3, CBC, DIFF CBC, PT, PTT, CMP #### [address] Platelet mean volume (Bld) [Entitic vol] 8.7 fL Normal 6.6-10.1 [facility] Comment on above: Result Comment: PERF ORMED BY: [place] [address] PATHOLOGIST PROJECT ASSOCIATE TRINA GARCIA M.D. Performed By: #### M G, TSH3, CBC, DIFF CBC, PT, PTT, CMP #### [address] Platelet Morphology Normal Normal Normal [facility] Comment on above: Result Comment: PERF ORMED BY: [place] [address] PATHOLOGIST PROJECT ASSOCIATE TRINA GARCIA M.D. Performed By: #### M G, TSH3, CBC, DIFF CBC, PT, PTT, CMP #### [address] Platelets (Bld) [#/Vol] 216 10*3/uL Normal 150-450 [facility] Comment on above: Performed By: #### M G, TSH3, CBC, DIFF CBC, PT, PTT, CMP #### [address] RBC (Bld) [#/Vol] 3.61 10*6/uL Low 3.90-5.60 [facility] Comment on above: Performed By: #### M G, TSH3, CBC, DIFF CBC, PT, PTT, CMP #### [address] Schistocytes Slight Normal [facility] Comment on above: Performed By: #### M G, TSH3, CBC, DIFF CBC, PT, PTT, CMP #### [address] Segmented neutrophils/100 WBC (Bld) 82 % High 50-70 [facility] Comment on above: Performed By: #### M G, TSH3, CBC, DIFF CBC, PT, PTT, CMP #### [address] WBC (Bld) [#/Vol] 13.3 10*3/uL High 4.1-10.5 [facility] Comment on above: Performed By: #### M G, TSH3, CBC, DIFF CBC, PT, PTT, CMP #### [facility] [address] Magnesiumon 11-30-2022 Magnesium [Mass/Vol] 2.1 mg/dL Normal 1.9-2.7 [facility] Comment on above: Result Comment: PERF ORMED BY: [place] [address] PATHOLOGIST PROJECT ASSOCIATE TRINA GARCIA M.D. Performed By: #### M G, TSH3, CBC, DIFF CBC, PT, PTT, CMP #### [address] Redraw Potassiumon Potassium [Moles/Vol] 4.5 mmol/L Normal 3.5-5.1 [facility] Comment on above: Order Comment: SPECI MEN HEMOLYZED, NOTIFIED HERMELINDA Result Comment: PERF ORMED BY: [place] [address] PATHOLOGIST PROJECT ASSOCIATE TRINA GARCIA M.D. Performed By: #### M G, TSH3, CBC, DIFF CBC, PT, PTT, CMP #### [address] B-Type Natriuretic Peptideon 11-29-2022 Natriuretic peptide B (Bld) [Mass/Vol] 213.0 pg/mL High 5-100 [facility] Comment on above: Result Comment: PERF ORMED BY: [place] [address] PATHOLOGIST PROJECT ASSOCIATE TRINA GARCIA M.D. Performed By: #### M G, TSH3, CBC, DIFF CBC, PT, PTT, CMP #### [facility] [address] Basic Metabolic Panelon 07-0 Anion gap [Moles/Vol] 9.3 mmol/L Normal 6.0-15.0 [facility] Comment on above: Performed By: #### M G, TSH3, CBC, DIFF CBC, PT, PTT, CMP #### [facility] [address] Calcium [Mass/Vol] 8.9 mg/dL Normal 8.6-10.3 [facility] Comment on above: Performed By: #### M G, TSH3, CBC, DIFF CBC, PT, PTT, CMP #### [facility] [address] Chloride [Moles/Vol] 103 mmol/L Normal 98-107 [facility] Comment on above: Performed By: #### M G, TSH3, CBC, DIFF CBC, PT, PTT, CMP #### [facility] [address] CO2 [Moles/Vol] 28.1 mmol/L Normal 21.0-31.0 [facility] Comment on above: Performed By: #### M G, TSH3, CBC, DIFF CBC, PT, PTT, CMP #### [facility] [address] Creatinine [Mass/Vol] 0.91 mg/dL Normal 0.70-1.30 [facility] Comment on above: Performed By: #### M G, TSH3, CBC, DIFF CBC, PT, PTT, CMP #### [facility] [address] Creatinine Clr Calc Pharmacy 57.[address] [facility] Comment on above: Performed By: #### M G, TSH3, CBC, DIFF CBC, PT, PTT, CMP #### [facility] [address] [place] [address] [place] GFR/1.73 sq M.predicted MDRD (S/P/Bld) [Vol rate/Area] mL/min/{1.73_m2} [facility] Comment on above: Performed By: #### M G, TSH3, CBC, DIFF CBC, PT, PTT, CMP #### [address] Glucose [Mass/Vol] 293 mg/dL High 70-100 [facility] Comment on above: Result Comment: [place] Glucose Reference Range is dependent on time and content of last meal. Glucose of more than 200 mg/dL in a nonstressed, ambulatory subject supports the diagnosis of Diabetes Mellitus. ADA recommended reference range Performed By: #### M G, TSH3, CBC, DIFF CBC, PT, PTT, CMP #### [address] Potassium [Moles/Vol] 4.4 mmol/L Normal 3.5-5.1 [facility] Comment on above: Performed By: #### M G, TSH3, CBC, DIFF CBC, PT, PTT, CMP #### [address] Sodium [Moles/Vol] 136 mmol/L Normal 136-145 [facility] Comment on above: Performed By: #### M G, TSH3, CBC, DIFF CBC, PT, PTT, CMP #### [address] Urea nitrogen [Mass/Vol] 41 mg/dL High 7-25 [facility] Comment on above: Performed By: #### M G, TSH3, CBC, DIFF CBC, PT, PTT, CMP #### [address] Complete Blood Count Auto Di ffon 11-29-2022 Basophils (Bld) [#/Vol] 0.0 10*3/uL Normal 0.0-0.2 [facility] Comment on above: Result Comment: PERF ORMED BY: [place] [address] PATHOLOGIST PROJECT ASSOCIATE TRINA GARCIA M.D. Performed By: #### M G, TSH3, CBC, DIFF CBC, PT, PTT, CMP #### [address] Basophils/100 WBC (Bld) 0.1 % Normal . [facility] Comment on above: Performed By: #### M G, TSH3, CBC, DIFF CBC, PT, PTT, CMP #### [address] Eosinophils (Bld) [#/Vol] 0.0 10*3/uL Normal 0.0-0.45 [facility] Comment on above: Performed By: #### M G, TSH3, CBC, DIFF CBC, PT, PTT, CMP #### [address] Eosinophils/100 WBC (Bld) 0.0 % Normal . [facility] Comment on above: Performed By: #### M G, TSH3, CBC, DIFF CBC, PT, PTT, CMP #### [address] Erythrocyte distribution width (RBC) [Ratio] 13.3 % Normal 12.0-14.8 [facility] Comment on above: Performed By: #### M G, TSH3, CBC, DIFF CBC, PT, PTT, CMP #### [address] Hematocrit (Bld) [Volume fraction] 34.5 % Low 38.8-50.0 [facility] Comment on above: Performed By: #### M G, TSH3, CBC, DIFF CBC, PT, PTT, CMP #### [address] Hemoglobin (Bld) [Mass/Vol] 11.6 g/dL Low 13.0-17.0 [facility] Comment on above: Performed By: #### M G, TSH3, CBC, DIFF CBC, PT, PTT, CMP #### [address] Lymphocytes (Bld) [#/Vol] 0.6 10*3/uL Low 1.00-4.8 [facility] Comment on above: Performed By: #### M G, TSH3, CBC, DIFF CBC, PT, PTT, CMP #### [address] Lymphocytes/100 WBC (Bld) 4.1 % Normal . [facility] Comment on above: Performed By: #### M G, TSH3, CBC, DIFF CBC, PT, PTT, CMP #### [address] MCH (RBC) [Entitic mass] 31.0 pg Normal 27.5-35.2 [facility] Comment on above: Performed By: #### M G, TSH3, CBC, DIFF CBC, PT, PTT, CMP #### [address] MCV (RBC) [Entitic vol] 92.6 fL Normal 83.5-101 [facility] Comment on above: Performed By: #### M G, TSH3, CBC, DIFF CBC, PT, PTT, CMP #### [address] Mean Corpuscular HGB Conc 33.5 g/dL Normal 32.5-35.6 [facility] Comment on above: Performed By: #### M G, TSH3, CBC, DIFF CBC, PT, PTT, CMP #### [address] Monocytes (Bld) [#/Vol] 0.7 10*3/uL Normal 0.0-0.8 [facility] Comment on above: Performed By: #### M G, TSH3, CBC, DIFF CBC, PT, PTT, CMP #### [address] Monocytes/100 WBC (Bld) 4.8 % Normal . [facility] Comment on above: Performed By: #### M G, TSH3, CBC, DIFF CBC, PT, PTT, CMP #### [address] Neutrophils (Bld) [#/Vol] 13.2 10*3/uL High 1.8-7.7 [facility] Comment on above: Performed By: #### M G, TSH3, CBC, DIFF CBC, PT, PTT, CMP #### [address] Neutrophils/100 WBC (Bld) 91.0 % Normal . [facility] Comment on above: Performed By: #### M G, TSH3, CBC, DIFF CBC, PT, PTT, CMP #### [address] NRBC% 0.0 /100{WBC} Normal 0-0.5 [facility] Comment on above: Performed By: #### M G, TSH3, CBC, DIFF CBC, PT, PTT, CMP #### [address] Platelet mean volume (Bld) [Entitic vol] 8.4 fL Normal 6.6-10.1 [facility] Comment on above: Performed By: #### M G, TSH3, CBC, DIFF CBC, PT, PTT, CMP #### [address] Platelets (Bld) [#/Vol] 219 10*3/uL Normal 150-450 [facility] Comment on above: Performed By: #### M G, TSH3, CBC, DIFF CBC, PT, PTT, CMP #### [address] RBC (Bld) [#/Vol] 3.72 10*6/uL Low 3.90-5.60 [facility] Comment on above: Performed By: #### M G, TSH3, CBC, DIFF CBC, PT, PTT, CMP #### [address] WBC (Bld) [#/Vol] 14.5 10*3/uL High 4.1-10.5 [facility] Comment on above: Performed By: #### M G, TSH3, CBC, DIFF CBC, PT, PTT, CMP #### [address] Magnesiumon 11-29-2022 Magnesium [Mass/Vol] 2.0 mg/dL Normal 1.9-2.7 [facility] Comment on above: Result Comment: PERF ORMED BY: [place] [id number] PATHOLOGIST PROJECT ASSOCIATE TRINA GARCIA M.D. Performed By: #### M G, TSH3, CBC, DIFF CBC, PT, PTT, CMP #### [place] [id number] [facility] Glucose Poct Glucometerson 0 11-28-2022 Commemt1 Glu2: Cleaned Meter Normal [facility] Comment on above: Result Comment: PERF ORMED BY: [place] [address] PATHOLOGIST PROJECT ASSOCIATE TRINA GARCIA M.D. Performed By: #### M G, TSH3, CBC, DIFF CBC, PT, PTT, CMP #### [place] [id number] [facility] Glucose [Mass/Vol] 392 mg/dL Normal [facility] Comment on above: Result Comment: [facility] Glucose Reference Range is dependent on time and content of last meal. Glucose of more than 200 mg/dL in a nonstressed, ambulatory subject supports the diagnosis of Diabetes Mellitus. Performed By: #### M G, TSH3, CBC, DIFF CBC, PT, PTT, CMP #### [address] [address] [facility] [facility] Glucose [Mass/Vol] 222 mg/dL Normal [facility] Comment on above: Result Comment: [facility] Glucose Reference Range is dependent on time and content of last meal. Glucose of more than 200 mg/dL in a nonstressed, ambulatory subject supports the diagnosis of Diabetes Mellitus. PERFORMED BY: [place] [id number] PATHOLOGIST PROJECT ASSOCIATE TRINA GARCIA M.D. Performed By: #### M G, TSH3, CBC, DIFF CBC, PT, PTT, CMP #### [place] [id number] [facility] Glucose [Mass/Vol] 322 mg/dL Normal [facility] Comment on above: Result Comment: [facility] Glucose Reference Range is dependent on time and content of last meal. Glucose of more than 200 mg/dL in a nonstressed, ambulatory subject supports the diagnosis of Diabetes Mellitus. PERFORMED BY: [place] [address] PATHOLOGIST PROJECT ASSOCIATE TRINA GARCIA M.D. Performed By: #### M G, TSH3, CBC, DIFF CBC, PT, PTT, CMP #### [address] Basic Metabolic Panelon 070 Anion gap [Moles/Vol] 8.6 mmol/L Normal 6.0-15.0 [facility] Comment on above: Performed By: #### M G, TSH3, CBC, DIFF CBC, PT, PTT, CMP #### [address] Calcium [Mass/Vol] 8.3 mg/dL Low 8.6-10.3 [facility] Comment on above: Performed By: #### M G, TSH3, CBC, DIFF CBC, PT, PTT, CMP #### [address] Chloride [Moles/Vol] 105 mmol/L Normal 98-107 [facility] Comment on above: Performed By: #### M G, TSH3, CBC, DIFF CBC, PT, PTT, CMP #### [address] CO2 [Moles/Vol] 26.9 mmol/L Normal 21.0-31.0 [facility] Comment on above: Performed By: #### M G, TSH3, CBC, DIFF CBC, PT, PTT, CMP #### [address] Creatinine [Mass/Vol] 1.19 mg/dL Normal 0.70-1.30 [facility] Comment on above: Performed By: #### M G, TSH3, CBC, DIFF CBC, PT, PTT, CMP #### [facility] [address] [place] [address] [place] Creatinine Clr Calc Pharmacy 42.[address] [facility] Comment on above: Result Comment: PERF ORMED BY: [place] [address] PATHOLOGIST PROJECT ASSOCIATE TRINA GARCIA M.D. Performed By: #### M G, TSH3, CBC, DIFF CBC, PT, PTT, CMP #### [facility] [address] GFR/1.73 sq M.predicted MDRD (S/P/Bld) [Vol rate/Area] mL/min/{1.73_m2} [facility] Comment on above: Performed By: #### M G, TSH3, CBC, DIFF CBC, PT, PTT, CMP #### [facility] [address] Glucose [Mass/Vol] 102 mg/dL High 70-100 [facility] Comment on above: Result Comment: [facility] Glucose Reference Range is dependent on time and content of last meal. Glucose of more than 200 mg/dL in a nonstressed, ambulatory subject supports the diagnosis of Diabetes Mellitus. ADA recommended reference range Performed By: #### M G, TSH3, CBC, DIFF CBC, PT, PTT, CMP #### [facility] [address] Potassium [Moles/Vol] 4.5 mmol/L Normal 3.5-5.1 [facility] Comment on above: Performed By: #### M G, TSH3, CBC, DIFF CBC, PT, PTT, CMP #### [facility] [address] [place] [address] [place] Sodium [Moles/Vol] 136 mmol/L Significant change down 136-145 [facility] Comment on above: Performed By: #### M G, TSH3, CBC, DIFF CBC, PT, PTT, CMP #### [facility] [address] [place] [address] [place] Urea nitrogen [Mass/Vol] 50 mg/dL High 7-25 [facility] Comment on above: Performed By: #### M G, TSH3, CBC, DIFF CBC, PT, PTT, CMP #### [address] Complete Blood Count Auto Di ffon 11-27-2022 Basophils (Bld) [#/Vol] 0.0 10*3/uL Normal 0.0-0.2 [facility] Comment on above: Result Comment: PERF ORMED BY: [place] [address] PATHOLOGIST PROJECT ASSOCIATE TRINA GARCIA M.D. Performed By: #### M G, TSH3, CBC, DIFF CBC, PT, PTT, CMP #### [address] Basophils/100 WBC (Bld) 0.1 % Normal . [facility] Comment on above: Performed By: #### M G, TSH3, CBC, DIFF CBC, PT, PTT, CMP #### [address] Eosinophils (Bld) [#/Vol] 0.0 10*3/uL Normal 0.0-0.45 [facility] Comment on above: Performed By: #### M G, TSH3, CBC, DIFF CBC, PT, PTT, CMP #### [address] Eosinophils/100 WBC (Bld) 0.0 % Normal . [facility] Comment on above: Performed By: #### M G, TSH3, CBC, DIFF CBC, PT, PTT, CMP #### [address] Erythrocyte distribution width (RBC) [Ratio] 13.7 % Normal 12.0-14.8 [facility] Comment on above: Performed By: #### M G, TSH3, CBC, DIFF CBC, PT, PTT, CMP #### [address] Hematocrit (Bld) [Volume fraction] 30.6 % Low 38.8-50.0 [facility] Comment on above: Performed By: #### M G, TSH3, CBC, DIFF CBC, PT, PTT, CMP #### [address] Hemoglobin (Bld) [Mass/Vol] 10.4 g/dL Low 13.0-17.0 [facility] Comment on above: Performed By: #### M G, TSH3, CBC, DIFF CBC, PT, PTT, CMP #### [address] Lymphocytes (Bld) [#/Vol] 0.7 10*3/uL Low 1.00-4.8 [facility] Comment on above: Performed By: #### M G, TSH3, CBC, DIFF CBC, PT, PTT, CMP #### [address] Lymphocytes/100 WBC (Bld) 4.1 % Normal . [facility] Comment on above: Performed By: #### M G, TSH3, CBC, DIFF CBC, PT, PTT, CMP #### [address] MCH (RBC) [Entitic mass] 31.6 pg Normal 27.5-35.2 [facility] Comment on above: Performed By: #### M G, TSH3, CBC, DIFF CBC, PT, PTT, CMP #### [address] MCV (RBC) [Entitic vol] 93.4 fL Normal 83.5-101 [facility] Comment on above: Performed By: #### M G, TSH3, CBC, DIFF CBC, PT, PTT, CMP #### [address] Mean Corpuscular HGB Conc 33.9 g/dL Normal 32.5-35.6 [facility] Comment on above: Performed By: #### M G, TSH3, CBC, DIFF CBC, PT, PTT, CMP #### [address] Monocytes (Bld) [#/Vol] 0.4 10*3/uL Normal 0.0-0.8 [facility] Comment on above: Performed By: #### M G, TSH3, CBC, DIFF CBC, PT, PTT, CMP #### [address] Monocytes/100 WBC (Bld) 2.0 % Normal . [facility] Comment on above: Performed By: #### M G, TSH3, CBC, DIFF CBC, PT, PTT, CMP #### [address] Neutrophils (Bld) [#/Vol] 16.8 10*3/uL High 1.8-7.7 [facility] Comment on above: Performed By: #### M G, TSH3, CBC, DIFF CBC, PT, PTT, CMP #### [address] Neutrophils/100 WBC (Bld) 93.8 % Normal . [facility] Comment on above: Performed By: #### M G, TSH3, CBC, DIFF CBC, PT, PTT, CMP #### [address] NRBC% 0.2 /100{WBC} Normal 0-0.5 [facility] Comment on above: Performed By: #### M G, TSH3, CBC, DIFF CBC, PT, PTT, CMP #### [address] Platelet mean volume (Bld) [Entitic vol] 8.2 fL Normal 6.6-10.1 [facility] Comment on above: Performed By: #### M G, TSH3, CBC, DIFF CBC, PT, PTT, CMP #### [place] [address] [place] Platelets (Bld) [#/Vol] 239 10*3/uL Normal 150-450 [facility] Comment on above: Performed By: #### M G, TSH3, CBC, DIFF CBC, PT, PTT, CMP #### [place] [address] [place] RBC (Bld) [#/Vol] 3.28 10*6/uL Low 3.90-5.60 [facility] Comment on above: Performed By: #### M G, TSH3, CBC, DIFF CBC, PT, PTT, CMP #### [facility] [address] [place] [address] [place] WBC (Bld) [#/Vol] 17.9 10*3/uL High 4.1-10.5 [facility] Comment on above: Performed By: #### M G, TSH3, CBC, DIFF CBC, PT, PTT, CMP #### [facility] [address] [place] [address] [facility] ECG 12 lead ECGon 11-27-2022 ECG 12 lead ECG [facility] [employer] [address] [place] [address] Electrocardiograph Report Signed Patient: Franki Hernandez MR#: [id number] : 1940 Acct:[id number] Age/Sex: 82 / M ADM Date: 11/25/22 Loc: Room: [address] [place] [address] Type: ADM IN Attending Dr: Nelida Aquino [...] By David Cerda DO 11/27 1256 Normal [facility] Glucose Poct Glucometerson 0 11-27-2022 Glucose [Mass/Vol] 199 mg/dL Normal [facility] Comment on above: Result Comment: [facility] Glucose Reference Range is dependent on time and content of last meal. Glucose of more than 200 mg/dL in a nonstressed, ambulatory subject supports the diagnosis of Diabetes Mellitus. PERFORMED BY: [address] [place] [address] PATHOLOGIST PROJECT ASSOCIATE TRINA GARCIA M.D. Performed By: #### M G, TSH3, CBC, DIFF CBC, PT, PTT, CMP #### [place] [address] [place] [address] [facility] Comment on above: Result Comment: Glu2 : WILL NOTIFY DR/RN Performed By: #### M G, TSH3, CBC, DIFF CBC, PT, PTT, CMP #### [place] [address] [place] Commemt2 Cleaned Meter Normal [facility] Comment on above: Result Comment: PERF ORMED BY: [facility] [address] [place] [address] PATHOLOGIST PROJECT ASSOCIATE TRINA GARCIA M.D. Performed By: #### M G, TSH3, CBC, DIFF CBC, PT, PTT, CMP #### [place] [id number] [place] Glucose [Mass/Vol] 410 mg/dL Off scale high [facility] Comment on above: Result Comment: [facility] Glucose Reference Range is dependent on time and content of last meal. Glucose of more than 200 mg/dL in a nonstressed, ambulatory subject supports the diagnosis of Diabetes Mellitus. Performed By: #### M G, TSH3, CBC, DIFF CBC, PT, PTT, CMP #### [facility] [address] [place] [address] [place] Glucose [Mass/Vol] 358 mg/dL Normal [facility] Comment on above: Result Comment: [facility] Glucose Reference Range is dependent on time and content of last meal. Glucose of more than 200 mg/dL in a nonstressed, ambulatory subject supports the diagnosis of Diabetes Mellitus. PERFORMED BY: [place] [address] PATHOLOGIST PROJECT ASSOCIATE TRINA GARCIA M.D. Performed By: #### M G, TSH3, CBC, DIFF CBC, PT, PTT, CMP #### [address] A1C with Estimated Average G karol 11-26-2022 Glucose [Mass/Vol] 183 mg/dL Normal [facility] Comment on above: Result Comment: PERF ORMED BY: [place] [address] PATHOLOGIST PROJECT ASSOCIATE TRINA GARCIA M.D. Performed By: #### H S TROP, A1C WTH eA, SCAN CBC #### [address] HbA1c (Bld) [Mass fraction] 8.0 % High 4.3-5.6 [facility] Comment on above: Result Comment: Incr eased risk for diabetes: 5.7 - 6.4 diabetes: >6.4 glycemic control for adults with diabetes: <7.0 Performed By: #### H S TROP, A1C WTH eA, SCAN CBC #### [address] Basic Metabolic Panelon 07 Anion gap [Moles/Vol] 12.0 mmol/L Normal 6.0-15.0 [facility] Comment on above: Performed By: #### M G, TSH3, CBC, DIFF CBC, PT, PTT, CMP #### [place] [address] [place] Calcium [Mass/Vol] 8.3 mg/dL Low 8.6-10.3 [facility] Comment on above: Performed By: #### M G, TSH3, CBC, DIFF CBC, PT, PTT, CMP #### [address] Chloride [Moles/Vol] 108 mmol/L High 98-107 [facility] Comment on above: Performed By: #### M G, TSH3, CBC, DIFF CBC, PT, PTT, CMP #### [facility] [address] CO2 [Moles/Vol] 27.1 mmol/L Normal 21.0-31.0 [facility] Comment on above: Performed By: #### M G, TSH3, CBC, DIFF CBC, PT, PTT, CMP #### [facility] [address] Creatinine [Mass/Vol] 0.99 mg/dL Normal 0.70-1.30 [facility] Comment on above: Performed By: #### M G, TSH3, CBC, DIFF CBC, PT, PTT, CMP #### [address] Creatinine Clr Calc Pharmacy 47.[address] [facility] Comment on above: Performed By: #### M G, TSH3, CBC, DIFF CBC, PT, PTT, CMP #### [address] GFR/1.73 sq M.predicted MDRD (S/P/Bld) [Vol rate/Area] mL/min/{1.73_m2} [facility] Comment on above: Performed By: #### M G, TSH3, CBC, DIFF CBC, PT, PTT, CMP #### [address] Glucose [Mass/Vol] 164 mg/dL Significant change up 70-100 [facility] Comment on above: Result Comment: [place] Glucose Reference Range is dependent on time and content of last meal. Glucose of more than 200 mg/dL in a nonstressed, ambulatory subject supports the diagnosis of Diabetes Mellitus. ADA recommended reference range Performed By: #### M G, TSH3, CBC, DIFF CBC, PT, PTT, CMP #### [address] Potassium [Moles/Vol] 5.1 mmol/L Normal 3.5-5.1 [facility] Comment on above: Performed By: #### M G, TSH3, CBC, DIFF CBC, PT, PTT, CMP #### [facility] [address] [place] [address] [place] Sodium [Moles/Vol] 142 mmol/L Normal 136-145 [facility] Comment on above: Performed By: #### M G, TSH3, CBC, DIFF CBC, PT, PTT, CMP #### [facility] [address] [place] [address] [place] Urea nitrogen [Mass/Vol] 37 mg/dL High - [facility] Comment on above: Performed By: #### M G, TSH3, CBC, DIFF CBC, PT, PTT, CMP #### [facility] [address] [place] [address] [facility] ECG 12 lead ECGon 11-26-2022 ECG 12 lead ECG [facility] [place] [address] Electrocardiograph Report Signed Patient: Franki Hernandez MR#: [id number] : 1940 Acct:[id number] Age/Sex: 82 / M ADM Date: 11/25/22 Loc: Room: [address] [place] [address] Type: ADM IN Attending Dr: Nelida Aquino [...] By David Cerda DO 11/26 1319 Normal [facility] ECG 12 lead ECG [facility] Main [place] [id number] Electrocardiograph Report Signed Patient: Franki Hernandez MR#: [id number] : 1940 Acct:[id number] Age/Sex: 82 / M ADM Date: 11/25/22 Loc: 3T Room: [address] [place] [address] Type: ADM IN Attending Dr: Nelida Aquino [...] Signed By David Cerda DO 11/[address] [facility] ECH echo transthoracicon [facility] echo transthoracic [facility] Main [address] [address] Echocardiogram Signed Patient: Franki Hernandez MR#: [id number] : 1940 Acct:[id number] Age/Sex: 82 / M ADM Date: 11/25/22 Loc: Room: [address] [place] [address] Type: ADM IN Attending Dr: Nelida Aquino MD Ordering Provider: Hermelinda Benitez APRN Date of Service: 11/26/2211/13/499 ECH/ECH echo transthoracic: a-fib rvr, elevated troponin Copies to: Saige Bassett MD, [facility] Hermelinda Benitez, PEDIATRIC REGISTERED NURSE Weight: 125 lb Performed By: JEANNA Solo [...] 11/26/22 1004 Signed By: [facility] 11/26/[address] [facility] Glucose Poct Glucometerson 0 11-26-[address] [facility] Comment on above: Result Comment: Glu2 : WILL NOTIFY DR/RN PERFORMED BY: [place] [address] PATHOLOGIST PROJECT ASSOCIATE TRINA GARCIA M.D. Performed By: #### M G, TSH3, CBC, DIFF CBC, PT, PTT, CMP #### [address] Glucose [Mass/Vol] 477 mg/dL Off scale high [facility] Comment on above: Result Comment: [place] [facility] Glucose Reference Range is dependent on time and content of last meal. Glucose of more than 200 mg/dL in a nonstressed, ambulatory subject supports the diagnosis of Diabetes Mellitus. Performed By: #### M G, TSH3, CBC, DIFF CBC, PT, PTT, CMP #### [address] Glucose [Mass/Vol] 355 mg/dL Normal [facility] Comment on above: Result Comment: [place] [facility] Glucose Reference Range is dependent on time and content of last meal. Glucose of more than 200 mg/dL in a nonstressed, ambulatory subject supports the diagnosis of Diabetes Mellitus. PERFORMED BY: [place] [address] PATHOLOGIST PROJECT ASSOCIATE TRINA GARCIA M.D. Performed By: #### M G, TSH3, CBC, DIFF CBC, PT, PTT, CMP #### [place] [address] [place] Glucose [Mass/Vol] 178 mg/dL Normal [facility] Comment on above: Result Comment: [place] [facility] Glucose Reference Range is dependent on time and content of last meal. Glucose of more than 200 mg/dL in a nonstressed, ambulatory subject supports the diagnosis of Diabetes Mellitus. PERFORMED BY: [place] [address] PATHOLOGIST PROJECT ASSOCIATE TRINA GARCIA M.D. Performed By: #### M G, TSH3, CBC, DIFF CBC, PT, PTT, CMP #### [place] [address] [place] Glucose [Mass/Vol] 205 mg/dL Normal [facility] Comment on above: Result Comment: [facility] Glucose Reference Range is dependent on time and content of last meal. Glucose of more than 200 mg/dL in a nonstressed, ambulatory subject supports the diagnosis of Diabetes Mellitus. PERFORMED BY: [address] [place] [address] PATHOLOGIST PROJECT ASSOCIATE TRINA GARCIA M.D. Performed By: #### M G, TSH3, CBC, DIFF CBC, PT, PTT, CMP #### [address] Magnesiumon 11-26-2022 Magnesium [Mass/Vol] 2.3 mg/dL Normal 1.9-2.7 [facility] Comment on above: Performed By: #### M G, TSH3, CBC, DIFF CBC, PT, PTT, CMP #### [address] Prealbuminon 11-26-2022 Prealbumin [Mass/Vol] 22.6 mg/dL Normal 17.0-34.0 [facility] Comment on above: Result Comment: PERF ORMED BY: [place] [address] PATHOLOGIST PROJECT ASSOCIATE TRINA GARCIA M.D. Performed By: #### M G, TSH3, CBC, DIFF CBC, PT, PTT, CMP #### [address] Scan and CBCon 11-26-2022 Anisocytosis Ql (Bld) Slight Normal [facility] Comment on above: Performed By: #### H S TROP, A1C WTH eA, SCAN CBC #### [place] [address] [place] Basophils (Bld) [#/Vol] 0.0 10*3/uL Normal 0.0-0.2 [facility] Comment on above: Performed By: #### H S TROP, A1C WTH eA, SCAN CBC #### [place] [address] [place] Basophils/100 WBC (Bld) 0.1 % Normal . [facility] Comment on above: Performed By: #### H S TROP, A1C WTH eA, SCAN CBC #### [facility] [address] [place] [address] [place] Eosinophils (Bld) [#/Vol] 0.0 10*3/uL Normal 0.0-0.45 [facility] Comment on above: Performed By: #### H S TROP, A1C WTH eA, SCAN CBC #### [facility] [address] [place] [address] [place] Eosinophils/100 WBC (Bld) 0.0 % Normal . [facility] Comment on above: Performed By: #### H S TROP, A1C WTH eA, SCAN CBC #### [address] Erythrocyte distribution width (RBC) [Ratio] 13.5 % Normal 12.0-14.8 [facility] Comment on above: Performed By: #### H S TROP, A1C WTH eA, SCAN CBC #### [place] [address] [place] Hematocrit (Bld) [Volume fraction] 34.3 % Low 38.8-50.0 [facility] Comment on above: Performed By: #### H S TROP, A1C WTH eA, SCAN CBC #### [place] [address] [place] Hemoglobin (Bld) [Mass/Vol] 11.3 g/dL Low 13.0-17.0 [facility] Comment on above: Performed By: #### H S TROP, A1C WTH eA, SCAN CBC #### [facility] [address] [place] [address] [place] Lymphocytes (Bld) [#/Vol] 0.5 10*3/uL Low 1.00-4.8 [facility] Comment on above: Performed By: #### H S TROP, A1C WTH eA, SCAN CBC #### [facility] [address] [place] [address] [place] Lymphocytes/100 WBC (Bld) 3.8 % Normal . [facility] Comment on above: Performed By: #### H S TROP, A1C WTH eA, SCAN CBC #### [facility] [address] [place] [address] MCH (RBC) [Entitic mass] 31.0 pg Normal 27.5-35.2 [facility] Comment on above: Performed By: #### H S TROP, A1C WTH eA, SCAN CBC #### [facility] [address] [place] [address] MCV (RBC) [Entitic vol] 94.0 fL Normal 83.5-101 [facility] Comment on above: Performed By: #### H S TROP, A1C WTH eA, SCAN CBC #### [address] Mean Corpuscular HGB Conc 33.0 g/dL Normal 32.5-35.6 [facility] Comment on above: Performed By: #### H S TROP, A1C WTH eA, SCAN CBC #### [address] Microcytosis Slight Normal [facility] Comment on above: Performed By: #### H S TROP, A1C WTH eA, SCAN CBC #### [address] Monocytes (Bld) [#/Vol] 0.1 10*3/uL Normal 0.0-0.8 [facility] Comment on above: Performed By: #### H S TROP, A1C WTH eA, SCAN CBC #### [address] Monocytes/100 WBC (Bld) 0.7 % Normal . [facility] Comment on above: Performed By: #### H S TROP, A1C WTH eA, SCAN CBC #### [facility] [address] [place] [address] Neutrophils (Bld) [#/Vol] 12.1 10*3/uL High 1.8-7.7 [facility] Comment on above: Performed By: #### H S TROP, A1C WTH eA, SCAN CBC #### [address] Neutrophils/100 WBC (Bld) 95.4 % Normal . [facility] Comment on above: Performed By: #### H S TROP, A1C WTH eA, SCAN CBC #### [address] NRBC% 0.0 /100{WBC} Normal 0-0.5 [facility] Comment on above: Performed By: #### H S TROP, A1C WTH eA, SCAN CBC #### [address] Ovalocytes Slight Normal [facility] Comment on above: Performed By: #### H S TROP, A1C WTH eA, SCAN CBC #### [address] Platelet Estimate Normal Normal Normal [facility] Comment on above: Performed By: #### H S TROP, A1C WTH eA, SCAN CBC #### [address] Platelet mean volume (Bld) [Entitic vol] 8.2 fL Normal 6.6-10.1 [facility] Comment on above: Performed By: #### H S TROP, A1C WTH eA, SCAN CBC #### [address] Platelet Morphology Normal Normal Normal [facility] Comment on above: Result Comment: PERF ORMED BY: [place] [address] PATHOLOGIST PROJECT ASSOCIATE TRINA GARCIA M.D. Performed By: #### H S TROP, A1C WTH eA, SCAN CBC #### [place] [address] [place] Platelets (Bld) [#/Vol] 229 10*3/uL Normal 150-450 [facility] Comment on above: Performed By: #### H S TROP, A1C WTH eA, SCAN CBC #### [place] [address] [place] RBC (Bld) [#/Vol] 3.65 10*6/uL Low 3.90-5.60 [facility] Comment on above: Performed By: #### H S TROP, A1C WTH eA, SCAN CBC #### [address] WBC (Bld) [#/Vol] 12.6 10*3/uL High 4.1-10.5 [facility] Comment on above: Performed By: #### H S TROP, A1C WTH eA, SCAN CBC #### [address] Troponin I High Sensitivityo n 11-26-2022 Troponin I High Sensitivity 19.7 pg/mL Normal 0.0-20.0 [facility] Comment on above: Result Comment: PERF ORMED BY: [place] [address] PATHOLOGIST PROJECT ASSOCIATE TRINA GARCIA M.D. Performed By: #### H S TROP, A1C WTH eA, SCAN CBC #### [address] Troponin I High Sensitivity 24.1 pg/mL High 0.0-20.0 [facility] Comment on above: Result Comment: PERF ORMED BY: [place] [address] PATHOLOGIST PROJECT ASSOCIATE TRINA GARCIA M.D. Performed By: #### M G, TSH3, CBC, DIFF CBC, PT, PTT, CMP #### [address] Urine Cultureon 11-26-2022 Bacteria identified Cx Nom (U) No Growth 2 Days PERFORMED BY: [place] [address] PATHOLOGIST PROJECT ASSOCIATE TRINA GARCIA M.D. Normal [facility] Comment on above: Performed By: #### M G, TSH3, CBC, DIFF CBC, PT, PTT, CMP #### [address] Activated partial thrombopla stin time (aPTT) in platelet poor plasma by coagulation aOrdered By: Shukri Francisco on 11-25-2022 aPTT Coag (PPP) [Time] 23.3 s 25.1-36.5 [facility] Alanine aminotransferase [En zymatic activity/volume] in Serum or PlasmaOrdered By: Shukri Francisco on 11-25-2022 ALT [Catalytic activity/Vol] 9 U/L 7-52 [facility] Albumin [Mass/volume] in Ser um or Plasma by Bromocresol green (BCG) dye binding methoOrdered By: Shukri Francisco on 11-25-2022 Albumin BCG dye [Mass/Vol] 3.2 g/dL 3.5-5.7 [facility] Alkaline phosphatase [Enzyma tic activity/volume] in Serum or PlasmaOrdered By: Shukri Francisco on 11-25-2022 ALP [Catalytic activity/Vol] 114 U/L 34-104 [facility] Aspartate aminotransferase [ Enzymatic activity/volume] in Serum or PlasmaOrdered By: Shukri Francisco on 11-25-2022 AST [Catalytic activity/Vol] 11 U/L 13-39 [facility] Automated erythrocytes count in urine sediment (number/area)Ordered By: Shukri Francisco on 11-25-2022 RBC Auto (Urine sed) [#/Area] 0-1 [HPF] 0-4 [facility] Automated leukocytes count i n urine sediment (number/area)Ordered By: Shukri Francisco on 11-25-2022 WBC Auto (Urine sed) [#/Area] 0-1 [HPF] 0-4 [facility] B-Type Natriuretic Peptideon 11-25-2022 Natriuretic peptide B (Bld) [Mass/Vol] 194.0 pg/mL High 5-100 [facility] Comment on above: Result Comment: PERF ORMED BY: [place] [address] PATHOLOGIST PROJECT ASSOCIATE TRINA GARCIA M.D. Performed By: #### M G, TSH3, CBC, DIFF CBC, PT, PTT, CMP #### [address] Band form neutrophils/100 WB C Manual cnt (Bld)Ordered By: Shukri Francisco on 11-25-2022 Band form neutrophils/100 WBC (Bld) 2 % 0-5 [facility] Basophils Auto (Bld) [#/Vol] Ordered By: Shukri Francisco on 11-25-2022 Basophils (Bld) [#/Vol] N/A [facility] Basophils/100 WBC Auto (Bld) Ordered By: Shukri Francisco on 11-25-2022 Basophils/100 WBC (Bld) N/A [facility] Basophils/100 WBC Manual cnt (Bld)Ordered By: Shukri Francisco on 11-25-2022 Basophils/100 WBC (Bld) 0 % 0-2 [facility] Bilirubin Test strip Ql (U)O rdered By: Shukri Francisco on 11-25-2022 Bilirubin Ql (U) Negative Negative [facility] Bilirubin.total [Mass/volume ] in Serum or PlasmaOrdered By: Shukri Francisco on 11-25-2022 Bilirubin [Mass/Vol] 0.5 mg/dL 0.3-1.0 [facility] Blood Cultureon 11-25-2022 Bacteria identified Cx Nom (Bld) NO GROWTH 5 DAYS PERFORMED BY: [place] [address] PATHOLOGIST PROJECT ASSOCIATE TRINA GARCIA M.D. [facility] Comment on above: Performed By: #### M G, TSH3, CBC, DIFF CBC, PT, PTT, CMP #### [facility] [address] [place] [address] Bacteria identified Cx Nom (Bld) NO GROWTH 5 DAYS PERFORMED BY: [place] [address] PATHOLOGIST PROJECT ASSOCIATE TRINA GARCIA M.D. [facility] Comment on above: Performed By: #### M G, TSH3, CBC, DIFF CBC, PT, PTT, CMP #### [facility] [address] [place] [address] [place] Calcium [Mass/volume] in Ser um or PlasmaOrdered By: Shukri Francisco on 11-25-2022 Calcium [Mass/Vol] 9.1 mg/dL 8.6-10.3 [facility] Carbon dioxide, total [Moles /volume] in Serum or PlasmaOrdered By: Shukri Francisco on 11-25-2022 CO2 [Moles/Vol] 27.0 mmol/L 21.0-31.0 [facility] Chloride [Moles/volume] in S lio or PlasmaOrdered By: hSukri Francisco on 11-25-2022 Chloride [Moles/Vol] 108 mmol/L 98-107 [facility] Color Auto (U)Ordered By: Allie Francisco on 11-25-2022 Color (U) Yellow Yellow [facility] Complete Blood Count Auto Di ffon 11-25-2022 Erythrocyte distribution width (RBC) [Ratio] 13.6 % Normal 12.0-14.8 [facility] Comment on above: Performed By: #### M G, TSH3, CBC, DIFF CBC, PT, PTT, CMP #### [facility] [address] Hematocrit (Bld) [Volume fraction] 39.9 % Normal 38.8-50.0 [facility] Comment on above: Performed By: #### M G, TSH3, CBC, DIFF CBC, PT, PTT, CMP #### [facility] [address] Hemoglobin (Bld) [Mass/Vol] 13.1 g/dL Normal 13.0-17.0 [facility] Comment on above: Performed By: #### M G, TSH3, CBC, DIFF CBC, PT, PTT, CMP #### [address] MCH (RBC) [Entitic mass] 31.0 pg Normal 27.5-35.2 [facility] Comment on above: Performed By: #### M G, TSH3, CBC, DIFF CBC, PT, PTT, CMP #### [address] MCV (RBC) [Entitic vol] 94.1 fL Normal 83.5-101 [facility] Comment on above: Performed By: #### M G, TSH3, CBC, DIFF CBC, PT, PTT, CMP #### [address] Mean Corpuscular HGB Conc 32.9 g/dL Normal 32.5-35.6 [facility] Comment on above: Performed By: #### M G, TSH3, CBC, DIFF CBC, PT, PTT, CMP #### [address] Platelet mean volume (Bld) [Entitic vol] 8.1 fL Normal 6.6-10.1 [facility] Comment on above: Result Comment: PERF ORMED BY: [place] [address] PATHOLOGIST PROJECT ASSOCIATE TRINA GARCIA M.D. Performed By: #### M G, TSH3, CBC, DIFF CBC, PT, PTT, CMP #### [address] Platelets (Bld) [#/Vol] 278 10*3/uL Normal 150-450 [facility] Comment on above: Performed By: #### M G, TSH3, CBC, DIFF CBC, PT, PTT, CMP #### [address] RBC (Bld) [#/Vol] 4.24 10*6/uL Normal 3.90-5.60 [facility] Comment on above: Performed By: #### M G, TSH3, CBC, DIFF CBC, PT, PTT, CMP #### [address] WBC (Bld) [#/Vol] 21.8 10*3/uL High 4.1-10.5 [facility] Comment on above: Performed By: #### M G, TSH3, CBC, DIFF CBC, PT, PTT, CMP #### [facility] [address] Comprehensive Metabolic Pane uma 11-25-2022 Albumin [Mass/Vol] 3.2 g/dL Low 3.5-5.7 [facility] Comment on above: Performed By: #### M G, TSH3, CBC, DIFF CBC, PT, PTT, CMP #### [facility] [address] [place] [address] Albumin/Globulin [Mass ratio] 1.1 {ratio} Normal [facility] Comment on above: Performed By: #### M G, TSH3, CBC, DIFF CBC, PT, PTT, CMP #### [address] ALP [Catalytic activity/Vol] 114 U/L High 34-104 [facility] Comment on above: Performed By: #### M G, TSH3, CBC, DIFF CBC, PT, PTT, CMP #### [address] ALT [Catalytic activity/Vol] 9 U/L Normal 7-52 [facility] Comment on above: Performed By: #### M G, TSH3, CBC, DIFF CBC, PT, PTT, CMP #### [facility] [address] [place] [address] Anion gap [Moles/Vol] 11.0 mmol/L Normal 6.0-15.0 [facility] Comment on above: Performed By: #### M G, TSH3, CBC, DIFF CBC, PT, PTT, CMP #### [facility] [address] [place] [address] AST [Catalytic activity/Vol] 11 U/L Low 13-39 [facility] Comment on above: Performed By: #### M G, TSH3, CBC, DIFF CBC, PT, PTT, CMP #### [facility] [address] [place] [address] Bilirubin [Mass/Vol] 0.5 mg/dL Normal 0.3-1.0 [facility] Comment on above: Performed By: #### M G, TSH3, CBC, DIFF CBC, PT, PTT, CMP #### [address] Calcium [Mass/Vol] 9.1 mg/dL Normal 8.6-10.3 [facility] Comment on above: Performed By: #### M G, TSH3, CBC, DIFF CBC, PT, PTT, CMP #### [address] [place] [address] [place] Chloride [Moles/Vol] 108 mmol/L High 98-107 [facility] Comment on above: Performed By: #### M G, TSH3, CBC, DIFF CBC, PT, PTT, CMP #### [facility] [address] CO2 [Moles/Vol] 27.0 mmol/L Normal 21.0-31.0 [facility] Comment on above: Performed By: #### M G, TSH3, CBC, DIFF CBC, PT, PTT, CMP #### [facility] [address] Creatinine [Mass/Vol] 1.14 mg/dL Normal 0.70-1.30 [facility] Comment on above: Performed By: #### M G, TSH3, CBC, DIFF CBC, PT, PTT, CMP #### [address] Creatinine Clr Calc Pharmacy [address] [facility] Comment on above: Performed By: #### M G, TSH3, CBC, DIFF CBC, PT, PTT, CMP #### [facility] [address] GFR/1.73 sq M.predicted MDRD (S/P/Bld) [Vol rate/Area] mL/min/{1.73_m2} [facility] Comment on above: Performed By: #### M G, TSH3, CBC, DIFF CBC, PT, PTT, CMP #### [address] Globulin (S) [Mass/Vol] 3.0 g/dL [facility] Comment on above: Performed By: #### M G, TSH3, CBC, DIFF CBC, PT, PTT, CMP #### [address] Glucose [Mass/Vol] 54 mg/dL Low 70-100 [facility] Comment on above: Result Comment: [facility] Glucose Reference Range is dependent on time and content of last meal. Glucose of more than 200 mg/dL in a nonstressed, ambulatory subject supports the diagnosis of Diabetes Mellitus. ADA recommended reference range Performed By: #### M G, TSH3, CBC, DIFF CBC, PT, PTT, CMP #### [facility] [address] Potassium [Moles/Vol] 4.0 mmol/L Normal 3.5-5.1 [facility] Comment on above: Performed By: #### M G, TSH3, CBC, DIFF CBC, PT, PTT, CMP #### [facility] [address] Protein [Mass/Vol] 6.2 g/dL Low 6.4-8.9 [facility] Comment on above: Performed By: #### M G, TSH3, CBC, DIFF CBC, PT, PTT, CMP #### [facility] [address] Sodium [Moles/Vol] 142 mmol/L Normal 136-145 [facility] Comment on above: Performed By: #### M G, TSH3, CBC, DIFF CBC, PT, PTT, CMP #### [facility] [address] Urea nitrogen [Mass/Vol] 35 mg/dL High 7-25 [facility] Comment on above: Performed By: #### M G, TSH3, CBC, DIFF CBC, PT, PTT, CMP #### [facility] [address] [place] [address] Creatinine [Mass/volume] in Serum or PlasmaOrdered By: Shukri Francisco on 11-25-2022 Creatinine [Mass/Vol] 1.14 mg/dL 0.70-1.30 [facility] Diff and CBCon 11-25-2022 Band form neutrophils/100 WBC (Bld) 2 % Normal 0-5 [facility] Comment on above: Performed By: #### M G, TSH3, CBC, DIFF CBC, PT, PTT, CMP #### [facility] [address] [place] [address] [place] Basophils/100 WBC (Bld) 0 % Normal 0-2 [facility] Comment on above: Performed By: #### M G, TSH3, CBC, DIFF CBC, PT, PTT, CMP #### [facility] [address] [place] [address] [place] Eosinophils/100 WBC (Bld) 0 % Low 1-3 [facility] Comment on above: Performed By: #### M G, TSH3, CBC, DIFF CBC, PT, PTT, CMP #### [facility] [address] [place] [address] [place] Lymphocytes/100 WBC (Bld) 6 % Low 18-42 [facility] Comment on above: Performed By: #### M G, TSH3, CBC, DIFF CBC, PT, PTT, CMP #### [place] [address] [place] Metamyelocytes 1 % High 0-0 [facility] Comment on above: Performed By: #### M G, TSH3, CBC, DIFF CBC, PT, PTT, CMP #### [place] [address] [place] Monocytes/100 WBC (Bld) 19.98 % Normal 0.00-20.00 [facility] Comment on above: Result Comment: For adults in ED, MDW > 20.0 may be associated with a higher risk of sepsis during the first 12 hrs of hospital admission The predictive value of MDW for identifying sepsis in patients with hematological abnormalities has not been established Performed By: #### M G, TSH3, CBC, DIFF CBC, PT, PTT, CMP #### [facility] [address] [place] [address] [place] Monocytes/100 WBC (Bld) 2 % Normal 2-11 [facility] Comment on above: Performed By: #### M G, TSH3, CBC, DIFF CBC, PT, PTT, CMP #### [place] [address] [place] Myelocytes 4 % High 0-0 [facility] Comment on above: Performed By: #### M G, TSH3, CBC, DIFF CBC, PT, PTT, CMP #### [facility] [address] [place] [address] [place] Platelet Estimate Normal Normal Normal [facility] Comment on above: Performed By: #### M G, TSH3, CBC, DIFF CBC, PT, PTT, CMP #### [facility] [address] [place] [address] Platelet Morphology Normal Normal Normal [facility] Comment on above: Result Comment: PERF ORMED BY: [place] [address] PATHOLOGIST PROJECT ASSOCIATE TRINA GARCIA M.D. Performed By: #### M G, TSH3, CBC, DIFF CBC, PT, PTT, CMP #### [facility] [address] [place] [address] RBC morphology finding Nom (Bld) Normal Normal Normal [facility] Comment on above: Performed By: #### M G, TSH3, CBC, DIFF CBC, PT, PTT, CMP #### [address] Segmented neutrophils/100 WBC (Bld) 85 % High 50-70 [facility] Comment on above: Performed By: #### M G, TSH3, CBC, DIFF CBC, PT, PTT, CMP #### [address] Dipstick and Microscopicon 0 11-25-2022 Appearance (U) Clear Normal Clear [facility] Comment on above: Order Comment: Name Collection Type:: Berry Catheter Performed By: #### M G, TSH3, CBC, DIFF CBC, PT, PTT, CMP #### [facility] [address] [place] [address] Bacteria,Urine None Seen Normal None Seen [facility] Comment on above: Order Comment: Name Collection Type:: Berry Catheter Performed By: #### M G, TSH3, CBC, DIFF CBC, PT, PTT, CMP #### [place] [address] [place] Bilirubin,Urine Negative Normal Negative [facility] Comment on above: Order Comment: Name Collection Type:: Berry Catheter Performed By: #### M G, TSH3, CBC, DIFF CBC, PT, PTT, CMP #### [address] [place] [address] [place] Color (U) Yellow Normal Yellow [facility] Comment on above: Order Comment: Name Collection Type:: Berry Catheter Performed By: #### M G, TSH3, CBC, DIFF CBC, PT, PTT, CMP #### [facility] [address] Glucose Ql (U) Normal Normal Normal [facility] Comment on above: Order Comment: Name Collection Type:: Berry Catheter Performed By: #### M G, TSH3, CBC, DIFF CBC, PT, PTT, CMP #### [facility] [address] Hyaline Casts,Urine 0-8 Normal 0-8 [facility] Comment on above: Order Comment: Name Collection Type:: Berry Catheter Result Comment: PERF ORMED BY: [place] [address] PATHOLOGIST PROJECT ASSOCIATE TRINA GARCIA M.D. Performed By: #### M G, TSH3, CBC, DIFF CBC, PT, PTT, CMP #### [address] Ketones Ql (U) Trace High Negative [facility] Comment on above: Order Comment: Name Collection Type:: Berry Catheter Performed By: #### M G, TSH3, CBC, DIFF CBC, PT, PTT, CMP #### [address] Leukocyte esterase Test strip Ql (U) Negative Normal Negative [facility] Comment on above: Order Comment: Name Collection Type:: Berry Catheter Performed By: #### M G, TSH3, CBC, DIFF CBC, PT, PTT, CMP #### [place] [address] [place] Nitrite,Urine Negative Normal Negative [facility] Comment on above: Order Comment: Name Collection Type:: Berry Catheter Performed By: #### M G, TSH3, CBC, DIFF CBC, PT, PTT, CMP #### [address] Occult Blood,Urine Negative Normal Negative [facility] Comment on above: Order Comment: Name Collection Type:: Berry Catheter Result Comment: PERF ORMED BY: [place] [address] PATHOLOGIST PROJECT ASSOCIATE TRINA GARCIA M.D. Performed By: #### M G, TSH3, CBC, DIFF CBC, PT, PTT, CMP #### [address] pH (U) 6.0 [pH] Normal 5.0-9.0 [facility] Comment on above: Order Comment: Name Collection Type:: Berry Catheter Performed By: #### M G, TSH3, CBC, DIFF CBC, PT, PTT, CMP #### [address] Protein (U) [Mass/Vol] 300 mg/dL High Negative [facility] Comment on above: Order Comment: Name Collection Type:: Berry Catheter Performed By: #### M G, TSH3, CBC, DIFF CBC, PT, PTT, CMP #### [address] RBC LM.HPF (Urine sed) [#/Area] 0 /[HPF] Normal 0-4 [facility] Comment on above: Order Comment: Name Collection Type:: Berry Catheter Performed By: #### M G, TSH3, CBC, DIFF CBC, PT, PTT, CMP #### [address] Specificy [place],Urine 1.024 Normal 1.001-1.030 [facility] Comment on above: Order Comment: Name Collection Type:: Berry Catheter Performed By: #### M G, TSH3, CBC, DIFF CBC, PT, PTT, CMP #### [place] [address] [place] Squamous Epithelial Cell,Urine 0-1 Normal 0-2 [facility] Comment on above: Order Comment: Name Collection Type:: Berry Catheter Performed By: #### M G, TSH3, CBC, DIFF CBC, PT, PTT, CMP #### [facility] [address] Urobilinogen,Urine Normal Normal Normal [facility] Comment on above: Order Comment: Name Collection Type:: Berry Catheter Performed By: #### M G, TSH3, CBC, DIFF CBC, PT, PTT, CMP #### [facility] [address] [place] [id number] [place] WBC LM.HPF (Urine sed) [#/Area] 0 /[HPF] Normal 0-4 [facility] Comment on above: Order Comment: Name Collection Type:: Berry Catheter Performed By: #### M G, TSH3, CBC, DIFF CBC, PT, PTT, CMP #### [facility] [address] ECG 12 lead ECGon 11-25-2022 ECG 12 lead ECG [facility] [employer] [address] [place] [address] Electrocardiograph Report Signed Patient: Franki Hernandez MR#: [id number] : 1940 Acct:[id number] Age/Sex: 82 / M ADM Date: 11/25/22 Loc: ER Room: Type: [facility] ER Attending Dr: Ordering Provider: Shukri Francisco [...] Signed By Shukri Francisco MD 10/13 Normal [facility] Eosinophils Auto (Bld) [#/Vo l]Ordered By: Shukri Francisco on 11-25-2022 Eosinophils (Bld) [#/Vol] N/A [facility] Eosinophils/100 WBC Auto (Bl d)Ordered By: Shukri Francisco on 11-25-2022 Eosinophils/100 WBC (Bld) N/A [facility] Eosinophils/100 WBC Manual c nt (Bld)Ordered By: Shukri Francisco on 11-25-2022 Eosinophils/100 WBC (Bld) 0 % 1-3 [facility] Erythrocyte distribution wid th Auto (RBC) [Ratio]Ordered By: Shukri Francisco on 11-25-2022 Erythrocyte distribution width (RBC) [Ratio] 13.6 % 12.0-14.8 [facility] Free T4 (Free Thyroxine)on 0 11-25-2022 Free T4 [Mass/Vol] 1.31 ng/dL High 0.61-1.12 [facility] Comment on above: Result Comment: PERF ORMED BY: [place] [address] PATHOLOGIST PROJECT ASSOCIATE TRINA GARCIA M.D. Performed By: #### M G, TSH3, CBC, DIFF CBC, PT, PTT, CMP #### [place] [address] [place] Globulin Calc (S) [Mass/Vol] Ordered By: Shukri Francisco on 11-25-2022 Globulin (S) [Mass/Vol] 3.0 g/dL [facility] Glucose Glucometer (BldC) [M ass/Vol]Ordered By: Jean-Pierre Otero on 11-25-2022 Glucose [Mass/Vol] 196 mg/dL [facility] Comment on above: Random Glucose Refer ence Range is dependent on time and content of last meal. Glucose of more than 200 mg/dL in a nonstressed, ambulatory subject supports the diagnosis of Diabetes Mellitus. Glucose Poct Glucometerson 0 11-25-2022 Glucose [Mass/Vol] 196 mg/dL Normal [facility] Comment on above: Result Comment: [place] Glucose Reference Range is dependent on time and content of last meal. Glucose of more than 200 mg/dL in a nonstressed, ambulatory subject supports the diagnosis of Diabetes Mellitus. PERFORMED BY: [facility] [address] [place] [address] PATHOLOGIST PROJECT ASSOCIATE TRINA GARCIA M.D. Performed By: #### M G, TSH3, CBC, DIFF CBC, PT, PTT, CMP #### [facility] [address] Commemt1 Normal [facility] Comment on above: Result Comment: Glu2 : WILL NOTIFY DR/RN Performed By: #### M G, TSH3, CBC, DIFF CBC, PT, PTT, CMP #### [facility] [address] Commemt2 FOLLOW HYPOGLYCEMIC Normal [facility] Comment on above: Result Comment: PERF ORMED BY: [facility] [address] [place] [address] PATHOLOGIST PROJECT ASSOCIATE TRINA GARCIA M.D. Performed By: #### M G, TSH3, CBC, DIFF CBC, PT, PTT, CMP #### [address] Glucose [Mass/Vol] 47 mg/dL Off scale low [facility] Comment on above: Result Comment: [place] Glucose Reference Range is dependent on time and content of last meal. Glucose of more than 200 mg/dL in a nonstressed, ambulatory subject supports the diagnosis of Diabetes Mellitus. Performed By: #### M G, TSH3, CBC, DIFF CBC, PT, PTT, CMP #### [facility] [address] [place] [address] Glucose [Mass/volume] in Ser um or PlasmaOrdered By: Shukri Francisco on 11-25-2022 Glucose [Mass/Vol] 54 mg/dL 70-100 [facility] Comment on above: ADA recommended refe rence rangeRandom Glucose Reference Range is dependent on time and content of last meal. Glucose of more than 200 mg/dL in a nonstressed, ambulatory subject supports the diagnosis of Diabetes Mellitus. Hematocrit Auto (Bld) [Volum e fraction]Ordered By: Shukri Francisco on 11-25-2022 Hematocrit (Bld) [Volume fraction] 39.9 % 38.8-50.0 [facility] Hemoglobin [Mass/volume] in BloodOrdered By: Shukri Francisco on 11-25-2022 Hemoglobin (Bld) [Mass/Vol] 13.1 g/dL 13.0-17.0 [facility] Ketones Auto test strip (U) [Mass/Vol]Ordered By: Shukri Francisco on 11-25-2022 Ketones (U) [Mass/Vol] Trace Negative [facility] Laboratory - CoagulationOrde red By: Shukri Francisco on 11-25-2022 PT Coag (PPP) [Time] 10.6 s 9.0-12.9 [facility] - UrinalysisOrder ed By: Shukri Francisco on 11-25-2022 Hyaline casts LM Ql (Urine sed) 0-8 [LPF] 0-8 [facility] Leukocytes [#/volume] correc oz for nucleated erythrocytes in Blood by Automated counOrdered By: Shukri Francisco on 11-25-2022 WBC corrected for nucl RBC Auto (Bld) [#/Vol] 21.8 10*3/uL 4.1-10.5 [facility] Lymphocytes Auto (Bld) [#/Vo l]Ordered By: Shukri Francisco on 11-25-2022 Lymphocytes (Bld) [#/Vol] N/A [facility] Lymphocytes/100 WBC Auto (Bl d)Ordered By: Shukri Francisco on 11-25-2022 Lymphocytes/100 WBC (Bld) N/A [facility] Lymphocytes/100 WBC Manual c nt (Bld)Ordered By: Shukri Francisco on 11-25-2022 Lymphocytes/100 WBC (Bld) 6 % 18-42 [facility] MCH Auto (RBC) [Entitic mass ]Ordered By: Shukri Francisco on 11-25-2022 MCH (RBC) [Entitic mass] 31.0 pg 27.5-35.2 [facility] MCHC Auto (RBC) [Mass/Vol]Or dered By: Shukri Francisco on 11-25-2022 MCHC (RBC) [Mass/Vol] 32.9 g/dL 32.5-35.6 [facility] MCV Auto (RBC) [Entitic vol] Ordered By: Shukri Francisco on 07-05-2023 MCV (RBC) [Entitic vol] 94.1 fL 83.5-101 [facility] Magnesiumon 11-25-2022 Magnesium [Mass/Vol] 1.7 mg/dL Low 1.9-2.7 [facility] Comment on above: Performed By: #### M G, TSH3, CBC, DIFF CBC, PT, PTT, CMP #### [facility] [address] Magnesium [Mass/volume] in S lio or PlasmaOrdered By: Shukri Francisco on 11-25-2022 Magnesium [Mass/Vol] 1.7 mg/dL 1.9-2.7 [facility] Metamyelocytes/100 WBC Manua l cnt (Bld)Ordered By: Shukri Francisco on 11-25-2022 Metamyelocytes/100 WBC (Bld) 1 % 0-0 [facility] Monocyte distribution width [Entitic volume] in Blood by AutomatedOrdered By: Shukri Francisco on 11-25-2022 Monocyte distribution width Auto (Bld) [Entitic vol] 19.98 % 0.00-20.00 [facility] Comment on above: For adults in ED, MD W > 20.0 may be associated with a higher risk of sepsis during the first 12 hrs of hospital admissionThe predictive value of MDW for identifying sepsis in patients with hematological abnormalities has not been established Monocytes Auto (Bld) [#/Vol] Ordered By: Shukri Francisco on 11-25-2022 Monocytes (Bld) [#/Vol] N/A [facility] Monocytes/100 WBC Auto (Bld) Ordered By: Shukri Francisco on 11-25-2022 Monocytes/100 WBC (Bld) N/A [facility] Monocytes/100 WBC Manual cnt (Bld)Ordered By: Shukri Francisco on 11-25-2022 Monocytes/100 WBC (Bld) 2 % 2-11 [facility] Myelocytes/100 WBC Manual cn t (Bld)Ordered By: Shukri Francisco on 11-25-2022 Myelocytes/100 WBC (Bld) 4 % 0-0 [facility] Natriuretic peptide B [Mass/ Vol]Ordered By: Shukri Francisco on 11-25-2022 Natriuretic peptide B (Bld) [Mass/Vol] 194.0 pg/mL 5-100 [facility] Neutrophils Auto (Bld) [#/Vo l]Ordered By: Shukri Francisco on 11-25-2022 Neutrophils (Bld) [#/Vol] N/A [facility] Neutrophils/100 WBC Auto (Bl d)Ordered By: Shukri Francisco on 11-25-2022 Neutrophils/100 WBC (Bld) N/A [facility] Nitrite Test strip Ql (U)Ord ered By: Shukri Francisco on 11-25-2022 Nitrite Ql (U) Negative Negative [facility] No Panel InformationOrdered By: Jean-Pierre Otero on 11-25-2022 Bedside Glucose #2 Comment Follow hypoglycemic [facility] Bedside Glucose Comment See comment [facility] Comment on above: Glu2: WILL NOTIFY DR /RN No Panel InformationOrdered By: Shukri Francisco on 11-25-2022 Estimated GFR (CKD-EPI) > 60.0 mL/Min [facility]acy Creatinine Clearance (Chem 41.45 [facility] Nucleated erythrocytes [Pres ence] in Blood by Automated countOrdered By: Shukri Francisco on 11-25-2022 Nucleated RBC Auto Ql (Bld) N/A [facility] Partial Thromboplastin Timeo n 11-25-2022 aPTT Coag (Bld) [Time] 23.3 s Low 25.1-36.5 [facility] Comment on above: Result Comment: PERF ORMED BY: [place] [address] PATHOLOGIST PROJECT ASSOCIATE TRINA GARCIA M.D. Performed By: #### M G, TSH3, CBC, DIFF CBC, PT, PTT, CMP #### [facility] [address] [place] [address] Platelet adequacy [Presence] in Blood by Light microscopyOrdered By: Shukri Francisco on 11-25-2022 Platelets LM Ql (Bld) Normal Normal [facility] Platelet mean volume Auto (B ld) [Entitic vol]Ordered By: Shukri Francisco on 11-25-2022 Platelet mean volume (Bld) [Entitic vol] 8.1 fL 6.6-10.1 [facility] Platelet morphology finding [Identifier] in BloodOrdered By: Shukri Francisco on 11-25-2022 Platelet morphology finding Nom (Bld) Normal Normal [facility] Platelet poor plasma interna tional normalized ratio (INR) by coagulation assay (relatOrdered By: Shukri Francisco on 11-25-2022 INR Coag (PPP) [Relative time] 0.9 {INR} [facility] Comment on above: INR Therapeutic Rang e [...] 11-25-2022 Platelets (Bld) [#/Vol] 278 10*3/uL 150-450 [facility] Potassium [Moles/volume] in Serum or PlasmaOrdered By: Shukri Francisco on 11-25-2022 Potassium [Moles/Vol] 4.0 mmol/L 3.5-5.1 [facility] Protein Auto test strip (U) [Mass/Vol]Ordered By: Shukri Francisco on 11-25-2022 Protein (U) [Mass/Vol] 300 mg/dL Negative [facility] Protein [Mass/volume] in Ser um or PlasmaOrdered By: Shukri Francisco on 11-25-2022 Protein [Mass/Vol] 6.2 g/dL 6.4-8.9 [facility] Prothrombin Time INRon 11-25 INR Coag (PPP) [Relative time] 0.9 {INR} Normal [facility] Comment on above: Result Comment: INR Therapeutic [...] CBC, DIFF CBC, PT, PTT, CMP #### [facility] [address] PT Coag (PPP) [Time] 10.6 s Normal 9.0-12.9 [facility] Comment on above: Performed By: #### M G, TSH3, CBC, DIFF CBC, PT, PTT, CMP #### [facility] [address] RBC Auto (Bld) [#/Vol]Ordere d By: Shukri Francisco on 11-25-2022 RBC (Bld) [#/Vol] 4.24 10*6/uL 3.90-5.60 [facility] RBC morphologyOrdered By: Allie Francisco on 11-25-2022 RBC morphology finding Nom (Bld) Normal Normal [facility] Segmented neutrophils/100 WB C Manual cnt (Bld)Ordered By: Shukri Francisco on 11-25-2022 Segmented neutrophils/100 WBC (Bld) 85 % 50-70 [facility] Serum or plasma albumin/glob ulin mass ratioOrdered By: Shukri Francisco on 11-25-2022 Albumin/Globulin [Mass ratio] 1.1 {ratio} [facility] Serum or plasma anion gap de terminationOrdered By: Shukri Francisco on 11-25-2022 Anion gap [Moles/Vol] 11.0 mmol/L 6.0-15.0 [facility] Sodium [Moles/volume] in Ser um or PlasmaOrdered By: Shukri Francisco on 11-25-2022 Sodium [Moles/Vol] 142 mmol/L 136-145 [facility] Specific gravity Auto test s trip (U) [Rel density]Ordered By: Shukri Francisco on 11-25-2022 Specific gravity (U) [Rel density] 1.024 1.001-1.030 [facility] Squamous epithelial cells de tection in urine sediment by light microscopyOrdered By: Shukri Francisco on 11-25-2022 Epithelial cells.squamous LM Ql (Urine sed) 0-1 [HPF] 0-2 [facility] Thyroid Stimulating Hormoneo n 11-25-2022 TSH Qn 0.17 m[IU]/L Low 0.45-5.33 [facility] Comment on above: Result Comment: PERF ORMED BY: [place] [address] PATHOLOGIST PROJECT ASSOCIATE TRINA GARCIA M.D. Performed By: #### M G, TSH3, CBC, DIFF CBC, PT, PTT, CMP #### [place] [id number] [facility] Thyrotropin [Units/volume] i n Serum or PlasmaOrdered By: Shukri Francisco on 11-25-2022 TSH Qn 0.17 m[IU]/L 0.45-5.33 [facility] Thyroxine (T4) free [Mass/vo lume] in Serum or PlasmaOrdered By: Shukri Francisco on 11-25-2022 Free T4 [Mass/Vol] 1.31 ng/dL 0.61-1.12 [facility] Troponin I High Sensitivityo n 11-25-2022 Troponin I High Sensitivity 28.3 pg/mL High 0.0-20.0 [facility] Comment on above: Result Comment: PERF ORMED BY: [place] [address] PATHOLOGIST PROJECT ASSOCIATE TRINA GARCIA M.D. Performed By: #### M G, TSH3, CBC, DIFF CBC, PT, PTT, CMP #### [facility] [address] [place] [address] Troponin I.cardiac [Mass/vol ume] in Serum or Plasma by Detection limit <= 0.01 ng/Ordered By: Shukri Francisco on 11-25-2022 Troponin I.cardiac DL <= 0.01 ng/mL [Mass/Vol] 28.3 pg/mL 0.0-20.0 [facility] Urea nitrogen [Mass/volume] in Serum or PlasmaOrdered By: Shukri Francisco on 11-25-2022 Urea nitrogen [Mass/Vol] 35 mg/dL 7-25 [facility] Urine bacteria detection by automated methodOrdered By: Shukri Francisco on 11-25-2022 Bacteria Auto Ql (U) None seen None Seen [facility] Urine clarity by refractomet ry automatedOrdered By: Shukri Francisco on 11-25-2022 Clarity Refractometry automated (U) Clear Clear [facility] Urine glucose measurement by automated test strip (mass/volume)Ordered By: Shukri Francisco on 11-25-2022 Glucose Auto test strip (U) [Mass/Vol] Normal mg/dL Normal [facility] Urine hemoglobin detection b y automated test stripOrdered By: Shukri Francisco on 11-25-2022 Hemoglobin Auto test strip Ql (U) Negative Negative [facility] Urine leukocyte esterase det ection by automated test stripOrdered By: Shukri Francisco on 11-25-2022 Leukocyte esterase Auto test strip Ql (U) Negative Negative [facility] Urobilinogen Auto test strip (U) [Mass/Vol]Ordered By: Shukri Francisco on 11-25-2022 Urobilinogen (U) [Mass/Vol] Normal mg/dL Normal [facility] WBC Auto (Bld) [#/Vol]Ordere d By: Shukri Francisco on 11-25-2022 WBC (Bld) [#/Vol] 21.8 10*3/uL 4.1-10.5 [facility] XR chest 1V portableon 11-25 XR chest [address]V portable [facility] [place] [address] XRay Report Signed Patient: Franki Hernandez MR#: [id number] : 1940 Acct:[id number] Age/Sex: 82 / M ADM Date: 11/25/22 [...] David Chahal M.D.11/25/2022 6:13 PM Dictation Location: [place] [address] Transcribed By: PWS 11/25/221812 Dictated By: David Chahal DO 11/25/221811 Signed By: 11/25/221812 Normal [facility] pH Auto test strip (U)Ordere d By: Shukri Francisco on 11-25-2022 pH (U) 6.0 [pH] 5.0-9.0 [facility] XR LSPINE 2_3 VIEWSon 2022 XR LSPINE 2_3 VIEWS Normal [facility] CBC AUTO DIFFon 09-12-2022 BASO # 0.1 103/ul Normal 0.0-0.1 [facility] Comment on above: Performed By: #### C BC ####[facility] [address] [place] [address]Dr. Villa Yanes Basophils/100 WBC (Bld) 0.3 % Normal 0.2-2.0 [facility] Comment on above: Performed By: #### C BC ####[facility] [address] [place], [place] [address]Dr. Villa Yanes EO # 0.1 103/ul Normal 0.0-0.7 [facility] Comment on above: Performed By: #### C BC ####[facility] [address] [place] [address]Dr. Villa Yanes Eosinophils/100 WBC (Bld) 0.5 % Critically low 0.9-7.0 [facility] Comment on above: Performed By: #### C BC ####[facility] [address]efx[address]ia[address] [place] [address]Dr. Villa Yanes Erythrocyte distribution width (RBC) [Ratio] 12.3 % Normal 11.0-15.0 [facility] Comment on above: Performed By: #### C BC ####[facility] Argqrvet[address] [place], [place] [address]Dr. Villa Yanes Hematocrit (Bld) [Volume fraction] 40.2 % Critically low 42.0-54.0 [facility] Comment on above: Performed By: #### C BC ####[facility] [address] [place], [place] [address]Dr. Villa Yanes Hemoglobin (Bld) [Mass/Vol] 12.9 g/dL Critically low 14.0-18.0 [facility] Comment on above: Performed By: #### C BC ####[facility] [address]ax[address] [place] [address]Dr. Villa Yanes IG # 0.16 10e3/ul Critically high 0.00-0.03 [facility] Comment on above: Performed By: #### C BC ####[facility] Lxuvqzcvej[address] [place] [address]Dr. Villa Joaquín IG % 1.0 % Critically high 0.0-0.5 [facility] Comment on above: Performed By: #### C BC ####[facility] Kwvx[address]kmhud5[address] [place] [address]Dr. Villa Yanes LYMPH # 1.2 103/ul Normal 1.2-3.8 [facility] Comment on above: Performed By: #### C BC ####[facility] Pttbmaedje[address] [place] [address]Dr. Villa Yanes Lymphocytes/100 WBC (Bld) 7.2 % Critically low 20.5-60.0 [facility] Comment on above: Performed By: #### C BC ####[facility] Gpbrgcshkz24[address] [place] [address]Dr. Brooklynkaren Yanes MANUAL DIFF REQ NO Normal [facility] Comment on above: Performed By: #### C BC ####[facility] Nrcpmdhcml1879 [place] [address]Dr. Villa Joaquín MCH (RBC) [Entitic mass] 31.9 pg Normal 25.9-34.0 [facility] Comment on above: Performed By: #### C BC ####[facility] Cfrjppnvmu8742 [place] [address]Dr. Villa Joaquín MCHC (RBC) [Mass/Vol] 32.1 g/dL Normal 29.9-35.2 [facility] Comment on above: Performed By: #### C BC ####[facility] Rvosqfqujn1278 [place] [address]DrBrenden Yanes MCV (RBC) [Entitic vol] 99.5 fL Critically high 80.0-94.0 [facility] Comment on above: Performed By: #### C BC ####[facility] [address]bsaxrozu64[address] [place] [address]DrBrenden Yanes MONO # 0.9 103/ul Critically high 0.3-0.8 [facility] Comment on above: Performed By: #### C BC ####[facility] Iqofbjtjee7860 [place] [address]DrBrenden Yanes Monocytes/100 WBC (Bld) 5.6 % Normal 1.7-12.0 [facility] Comment on above: Performed By: #### C BC ####[facility] [address] [place], [place] [address]Dr. Villa Yanes NEUT # 14.1 103/ul Critically high 1.4-6.5 [facility] Comment on above: Performed By: #### C BC ####[facility] T[address]kit[address] [place], [place] [address]Dr. Villa Yanes Neutrophils/100 WBC (Bld) 85.4 % Critically high 43.0-75.0 [facility] Comment on above: Performed By: #### C BC ####[facility] Ehkvwfaoeu59[address] [place] [address]Dr. Villa Yanes Platelet mean volume (Bld) [Entitic vol] 9.9 fL Normal 9.5-13.5 [facility] Comment on above: Performed By: #### C BC ####[facility] Emmq[address]xsl[address] [place], [place] [address]Dr. Villa Yanes PLT 275 103/ul Normal 150-450 [facility] Comment on above: Performed By: #### C BC ####[facility] Aq[address]myc[address] [place], [place] [address]DrBrenden Yanes RBC 4.04 106/ul Critically low 4.70-6.10 [facility] Comment on above: Performed By: #### C BC ####[facility] X[address] [place], [place] [address]DrBrenden Driver Yanes WBC 16.5 103/ul Critically high 4.0-11.0 [facility] Comment on above: Performed By: #### C BC ####[facility] [address] [place], [place] [address]Dr. Brooklynkaren Joaquín CT ABD/PELV W CONon 09-13-[address] ABD/PELV W CON Normal [facility] ER URINE PROFILEon 3 Bilirubin Ql (U) Negative Normal NEGATIVE [facility] Comment on above: Performed By: #### E RUR ####[facility] [address] [place], [place] [address]Dr. Villa Yanes Clarity (U) CLEAR Normal CLEAR [facility] Comment on above: Performed By: #### E RUR ####[facility] T[address] [place], [place] [address]Dr. Villa Yanes Color (U) LT. YELLOW Normal YELLOW [facility] Comment on above: Performed By: #### E RUR ####[facility] [address] [place], [place] [address]Dr. Villa Yanes ERUAHD A micrscopic examina tion will be performed if indicated. Normal [facility] Comment on above: Performed By: #### E RUR ####[facility] Ur[address] [place], [place] [address]Dr. Villa Yanes Glucose Ql (U) Negative Normal NEGATIVE [facility] Comment on above: Performed By: #### E RUR ####[facility] Ueimnytdfy[address] [place], [place] [address]Dr. Villa Yanes Hemoglobin Ql (U) Negative Normal NEGATIVE [facility] Comment on above: Performed By: #### E RUR ####[facility] Mwfqxrhuxm[address] [place], [place] [address]Dr. Villa Yanes Ketones Ql (U) Negative Normal NEGATIVE [facility] Comment on above: Performed By: #### E RUR ####[facility] Qybuwntqqr[address] [place], [place] [address]Dr. Villa Yanes LEUKOCYTES Negative Normal NEGATIVE [facility] Comment on above: Performed By: #### E RUR ####[facility] C[address]ttw[address] [place] [address]Dr. Villa Yanes Nitrite Ql (U) Negative Normal NEGATIVE [facility] Comment on above: Performed By: #### E RUR ####[facility] Cymchltddn[address] [place] [address]Dr. Villa Yanes pH (U) 8.0 [pH] Normal 5-9 [facility] Comment on above: Performed By: #### E RUR ####[facility] [address] [place], [place] [address]Dr. Villa Yanes Protein (U) [Mass/Vol] 100 mg/dL Abnormal NEGATIVE/ TRACE [facility] Comment on above: Performed By: #### E RUR ####[facility] [address]ts[address] [place], [place] [address]Dr. Villa Yanes SPEC GRAVITY 1.020 Normal 1.005-<=1.[address] [place] [address] Comment on above: Performed By: #### E RUR ####[facility] [address]ofbf[address] [place], [place] [address]Dr. Villa Yanes UR MICRO IND NOT INDICATED Normal [facility] Comment on above: Performed By: #### E RUR ####[facility] [address]wo[address] [place], [place] [address]Dr. Villa Yanes Urobilinogen Qn (U) 0.2 {Mackenzie'U}/dL Normal 0.2 - 1. 0 [facility] Comment on above: Performed By: #### E RUR ####[facility] [address] [place], [place] [address]Dr. Villa Yanes PROF 14(COMP METB)on 023 Albumin [Mass/Vol] 3.3 g/dL Critically low 3.4-5.[address] [facility] Comment on above: Performed By: #### H DEE, CMP ####[facility] [address] [place], [place] [address]Dr. Villa Yanes Albumin/Globulin [Mass ratio] 0.9 {ratio} Normal [facility] Comment on above: Performed By: #### H STROPN, CMP ####[facility] W[address]f24[address] [place] [id number]. Villa Yanes ALP [Catalytic activity/Vol] 208 U/L Critically high 46-116 [facility] Comment on above: Performed By: #### H STROPN, CMP ####[facility] Nzcxttuyuf87[address] [place] [id number]. Villa Yanes ALT [Catalytic activity/Vol] 16 U/L Normal 16-63 [facility] Comment on above: Performed By: #### H STROPN, CMP ####[facility] Astavwjzwt[address] [place] [id number]. Villa Joaquín Anion gap [Moles/Vol] 11.3 mmol/L Normal Th e [facility] Comment on above: Performed By: #### H STROPN, CMP ####[facility] [address]ge[address]ok[address] [place] [address]Dr. Villa Yanes AST [Catalytic activity/Vol] 12 U/L Critically low 15-37 [facility] Comment on above: Performed By: #### H STROPN, CMP ####[facility] Cpnmqknlco34[address] [place] [address]Dr. Villa Yanes Bilirubin [Mass/Vol] 0.3 mg/dL Normal 0.2-1.0 [facility] Comment on above: Performed By: #### H STROPN, CMP ####[facility] Uklhxmkjbf60[address] [place] [address]Dr. Brooklynkaren Yanes Calcium [Mass/Vol] 9.8 mg/dL Normal 8.5-10.1 [facility] Comment on above: Performed By: #### H STROPN, CMP ####[facility] X[address]uzbveyke[address] [place] [address]Dr. Brooklynkaren Yanes Chloride [Moles/Vol] 103 mmol/L Normal 98-107 [facility] Comment on above: Performed By: #### H STROPN, CMP ####[facility] Wjbfevpkbc1008 [place] [address]Dr. Villa Yanes CO2 [Moles/Vol] 29.6 mmol/L Normal 21.0-32.0 [facility] Comment on above: Performed By: #### H STROPN, CMP ####[facility] [address]aledqytkx[address] [place] [address]Dr. Villa Yanes Creatinine [Mass/Vol] 1.12 mg/dL Normal 0.70-1.30 [facility] Comment on above: Performed By: #### H STROPN, CMP ####[facility] [address]jhodszze[address] [place] [address]Dr. Villa Yanes EGFR-AF MACEDONIAN >60 Normal >=60 [facility] Comment on above: Performed By: #### H STROPN, CMP ####[facility] Oppdmvlgml6391 [place] [address]Dr. Villa Yanes EGFR-NON AF MACEDONIAN >60 Normal >=60 [facility] Comment on above: Performed By: #### H STROPN, CMP ####[facility] Rbjaojfgxj[address]66 [place] [address]Dr. Villa Yanes Globulin (S) [Mass/Vol] 3.7 g/dL Normal [facility] Comment on above: Performed By: #### H STROPN, CMP ####[facility] Xyviliwkoc2555 [place] [address]Dr. Villa Yanes Glucose [Mass/Vol] 151 mg/dL Critically high 74-106 [facility] Comment on above: Performed By: #### H STROPN, CMP ####[facility] Axysmeorwy2891 [place] [address]Dr. Villa Yanes Potassium [Moles/Vol] 3.9 mmol/L Normal 3.5-5.1 [facility] Comment on above: Performed By: #### H STROPN, CMP ####[facility] Htawmrttfx1578 [place] [address]Dr. Villa Yanes Protein [Mass/Vol] 7.0 g/dL Normal 6.4-8.2 [facility] Comment on above: Performed By: #### H STROPN, CMP ####[facility] Qnxgnrordh2675 [place] [address]Dr. Villa Yanes Sodium [Moles/Vol] 140 mmol/L Normal 136-145 [facility] Comment on above: Performed By: #### H DEE, CMP ####[facility] Qdvdskfxgc0690 [place] [address]Dr. Villa Yanes Urea nitrogen [Mass/Vol] 30.0 mg/dL Critically high 7.0-18.0 [facility] Comment on above: Performed By: #### H DEE, CMP ####[facility] Cqalbtfzuk4638 [place] [address]Dr. Villa Yanes Urea nitrogen/Creatinine [Mass ratio] 26.8 mg/mg Normal [facility] Comment on above: Performed By: #### Carlos PRICE CMP ####[facility] [address]rs[address] [place], [place] [address]Dr. Villa Yanes TROPONIN, HIGH SENSITIVITYon 09-12-2022 HSTROP 8.9 pg/mL Normal 4.0-76.1 [facility] Comment on above: Result Comment: CUT- OFF POINTS HAVE BEEN ESTABLISHED BASED ON THE FOURTH UNIVERSAL DEFINITIONS OF MYOCARDIALINFARCTION. THE UPPER REFERENCE LIMIT (URL) OF TROPONIN, DEFINED THE 99TH PERCENTILE OFcTnI DISTRIBUTION IN A REFERENCE POPULATION, HAS BEEN CONFIRMED THE DECISION THRESHOLDFOR CT DIAGNOSIS. Performed By: #### Carlos PRICE CMP ####[facility] [address]oy[address] [place], [place] [address]Dr. Brooklynkaren Yanes CBC AUTO DIFFon 08-18-2022 BASO # 0.1 103/ul Normal 0.0-0.1 [facility] Comment on above: Performed By: #### C BC ####[facility] N[address] [place], [place] [address]Dr. Villa Yanes Basophils/100 WBC (Bld) 0.6 % Normal 0.2-2.0 [facility] Comment on above: Performed By: #### C BC ####[facility] [address] [place], [place] [address]Dr. Villa Yanes EO # 0.1 103/ul Normal 0.0-0.7 [facility] Comment on above: Performed By: #### C BC ####[facility] Lrdgwwzzdn5955 [place] [address]Dr. Villa Yanes Eosinophils/100 WBC (Bld) 1.2 % Normal 0.9-7.0 [facility] Comment on above: Performed By: #### C BC ####[facility] [address]ex[address] [place], [place] [address]Dr. Villa Yanes Erythrocyte distribution width (RBC) [Ratio] 12.3 % Normal 11.0-15.0 [facility] Comment on above: Performed By: #### C BC ####[facility] Al[address] [place], [place] [address]Dr. Villa Yanes Hematocrit (Bld) [Volume fraction] 31.9 % Critically low 42.0-54.0 [facility] Comment on above: Performed By: #### C BC ####[facility] R[address]fc[address] [place], [place] [address]Dr. Villa Yanes Hemoglobin (Bld) [Mass/Vol] 10.4 g/dL Critically low 14.0-18.0 [facility] Comment on above: Performed By: #### C BC ####[facility] [address]frbp[address]onh[address] [place], [place] [address]Dr. Villa Yanes IG # 0.09 10e3/ul Critically high 0.00-0.03 [facility] Comment on above: Performed By: #### C BC ####[facility] [address] [place], [place] [address]Dr. Villa Yanes IG % 1.0 % Critically high 0.0-0.5 [facility] Comment on above: Performed By: #### C BC ####[facility] Vrcqugbbwk[address] [place], [place] [address]Dr. Villa Yanes LYMPH # 1.6 103/ul Normal 1.2-3.8 [facility] Comment on above: Performed By: #### C BC ####[facility] Hqsmjlhtii399[address] [place], [place] [address]Dr. Villa Yanes Lymphocytes/100 WBC (Bld) 17.9 % Critically low 20.5-60.0 [facility] Comment on above: Performed By: #### C BC ####[facility] Anucibscuz[address] [place] [id number]. Villa Yanes MANUAL DIFF REQ NO Normal [facility] Comment on above: Performed By: #### C BC ####[facility] Ohtpehdgqo[address] [place] [id number]. Villa Yanes MCH (RBC) [Entitic mass] 32.2 pg Normal 25.9-34.0 [facility] Comment on above: Performed By: #### C BC ####[facility] Gsuidpmawg[address] [place] [address]Dr. Villa Yanes MCHC (RBC) [Mass/Vol] 32.6 g/dL Normal 29.9-35.2 [facility] Comment on above: Performed By: #### C BC ####[facility] Owqejujsoy[address] [place] [address]Dr. Villa Yanes MCV (RBC) [Entitic vol] 98.8 fL Critically high 80.0-94.0 [facility] Comment on above: Performed By: #### C BC ####[facility] Hdreaapabx[address] [place], [place] [address]Dr. Villa Joaquín MONO # 0.6 103/ul Normal 0.3-0.8 [facility] Comment on above: Performed By: #### C BC ####[facility] Pikjxnxldi058[address] [place], [place] [address]Dr. Brooklynkaren Yanes Monocytes/100 WBC (Bld) 6.6 % Normal 1.7-12.0 [facility] Comment on above: Performed By: #### C BC ####[facility] Vnmthqrvnk[address] [place], [place] [id number]. Villa Yanes NEUT # 6.6 103/ul Critically high 1.4-6.5 [facility] Comment on above: Performed By: #### C BC ####[facility] Khbmihkqsf078[address] [place], [place] [address]Dr. [place]karen Yanes Neutrophils/100 WBC (Bld) 72.7 % Normal 43.0-75.0 [facility] Comment on above: Performed By: #### C BC ####[facility] Owpgywovih[address] [place] [id number]. Villa Yanes Platelet mean volume (Bld) [Entitic vol] 9.6 fL Normal 9.5-13.5 [facility] Comment on above: Performed By: #### C BC ####[facility] Mblhtaettc[address] [place] [id number]. Villa Yanes PLT 206 103/ul Normal 150-450 [facility] Comment on above: Performed By: #### C BC ####[facility] Vevuzdtsjz[address] [place], [place] [id number]. Villa Joaquín RBC 3.23 106/ul Critically low 4.70-6.10 [facility] Comment on above: Performed By: #### C BC ####[facility] Mfuzaumxbq835[address] [place], [place] [address]Dr. Brooklynkaren Yanes WBC 9.0 103/ul Normal 4.0-11.0 [facility] Comment on above: Performed By: #### C BC ####[facility] Etprdialxv767[address] [place], [place] [address]Dr. Brooklynkaren Yanes CULTURE URINEon 08-18-2022 CULTURE URINE Culture Observations : LIGHT GROWTH OF MIXED SKIN ARACELI. NO POTENTIAL PATHOGENS SEEN. Normal [facility] Comment on above: Performed By: #### U RCX ####[facility] Ednjjkfnvl923[address] [place], [place] [address]Dr. Villa Yanes PROF CHEM 8 (BAS METB)on Anion gap [Moles/Vol] 9.4 mmol/L Normal [facility] Comment on above: Performed By: #### B MP ####[facility] Csseixupsb506[address] [place], [place] [address]Dr. Villa Yanes Calcium [Mass/Vol] 8.8 mg/dL Normal 8.5-10.1 [facility] Comment on above: Performed By: #### B MP ####[facility] Tfftsxkixi8[address] [place], [place] [address]Dr. Villa Yanes Chloride [Moles/Vol] 108 mmol/L Critically high 98-107 [facility] Comment on above: Performed By: #### B MP ####[facility] Tymycoerra[address] [place] [address]Dr. Villa Yanes CO2 [Moles/Vol] 28.5 mmol/L Normal 21.0-32.0 [facility] Comment on above: Performed By: #### B MP ####[facility] Uhecrypjis[address] [place] [address]Dr. Villa Yanes Creatinine [Mass/Vol] 0.76 mg/dL Normal 0.70-1.30 [facility] Comment on above: Performed By: #### B MP ####[facility] Kglyhlfoul[address] [place] [address]Dr. Villa Yanes EGFR-AF MACEDONIAN >60 Normal >=60 [facility] Comment on above: Performed By: #### B MP ####[facility] Fncqsmcmxn[address] [place], [place] [address]Dr. Brooklynkaren Joaquín EGFR-NON AF MACEDONIAN >60 Normal >=60 [facility] Comment on above: Performed By: #### B MP ####[facility] Ljomfcdclj225[address] [place], [place] [address]Dr. Villa Joaquín Glucose [Mass/Vol] 84 mg/dL Normal 74-106 [facility] Comment on above: Performed By: #### B MP ####[facility] Wpiolgwebm1464[address] [place], [place] [address]Dr. Villa Joaquín Potassium [Moles/Vol] 3.9 mmol/L Normal 3.5-5.1 [facility] Comment on above: Performed By: #### B MP ####[facility] Yilcfajwem01[address] [place], [place] [address]Dr. Villa Yanes Sodium [Moles/Vol] 142 mmol/L Normal 136-145 [facility] Comment on above: Performed By: #### B MP ####[facility] Qyunydchfu23[address] [place], [place] [address]Dr. Brooklynkaren Yanes Urea nitrogen [Mass/Vol] 15.0 mg/dL Normal 7.0-18.0 [facility] Comment on above: Performed By: #### B MP ####[facility] Wrjsotbqvz[address] [place] [address]Dr. Villa Yanes Urea nitrogen/Creatinine [Mass ratio] 19.7 mg/mg Normal [facility] Comment on above: Performed By: #### B MP ####[facility] Mchfvhclna65[address] [place], [place] [address]Dr. Villa Yanes UA RANDOM W/MICROSCOPICon BACTERIA NONE SEEN Normal NONE SEEN [facility] Comment on above: Performed By: #### U AMIC ####[facility] Qmwjrawsoe0314[address] [place], [place] [address]Dr. Villa Yanes Bilirubin Ql (U) Negative Normal NEGATIVE [facility] Comment on above: Performed By: #### U AMIC ####[facility] Vfepsytctu225[address] [place], [place] [address]Dr. Villa Yanes CAST NONE SEEN Normal NONE SEEN [facility] Comment on above: Performed By: #### U AMIC ####[facility] Sgydjrolap8555[address] [place], [place] [address]Dr. Villa Yanes Clarity (U) CLEAR Normal CLEAR [facility] Comment on above: Performed By: #### U AMIC ####[facility] Zsdktqkthn[address] [place], [place] [address]Dr. Villa Yanes Color (U) LT. YELLOW Normal YELLOW [facility] Comment on above: Performed By: #### U AMIC ####[facility] Uqghpeapxg044[address] [place], [place] [address]Dr. Villa Yanes Crystals LM Nom (Urine sed) NONE SEEN Normal NONE SEEN [facility] Comment on above: Performed By: #### U AMIC ####[facility] Qndtrujhrv537[address] [place], [place] [address]Dr. Villa Yanes Epithelial cells LM Ql (Urine sed) NONE SEEN Normal NONE SEEN /RARE [facility] Comment on above: Performed By: #### U AMIC ####[facility] Cezdiqtkwa9040[address] [place], [place] [address]Dr. Villa Yanes Glucose Ql (U) Negative Normal NEGATIVE [facility] Comment on above: Performed By: #### U AMIC ####[facility] Efswtnrydg[address] [place] [address]Dr. Villa Yanes Hemoglobin Ql (U) Negative Normal NEGATIVE [facility] Comment on above: Performed By: #### U AMIC ####[facility] Lvrewrawns[address] [place], [place] [address]Dr. Villa Ynaes Ketones Ql (U) Negative Normal NEGATIVE [facility] Comment on above: Performed By: #### U AMIC ####[facility] Kutbovkbgd[address] [place], [place] [address]Dr. Villa Yanes LEUKOCYTES Negative Normal NEGATIVE [facility] Comment on above: Performed By: #### U AMIC ####[facility] Vhztocdhtb564[address] [place], [place] [address]Dr. Villa Yanes MUCOUS NONE SEEN Normal NONE SEEN [facility] Comment on above: Performed By: #### U AMIC ####[facility] Ehdirzygax493[address] [place], [place] [address]Dr. Villa Yanes Nitrite Ql (U) Negative Normal NEGATIVE [facility] Comment on above: Performed By: #### U AMIC ####[facility] Fwbkykebss74[address] [place], [place] [address]Dr. Villa Yanes pH (U) 7.0 [pH] Normal 5-9 [facility] Comment on above: Performed By: #### U AMIC ####[facility] Pssvgklvxx[address] [place], [place] [address]Dr. Villa Yanes RBC 0-2 Normal 0-2 [facility] Comment on above: Performed By: #### U AMIC ####[facility] Grflsewyxp388[address] [place], [place] [address]Dr. Villa Yanes SPEC GRAVITY 1.015 Normal 1.005-<=1.0 25 [facility] Comment on above: Performed By: #### U AMIC ####[facility] Xcmqgpyckp[address] [place], [place] [address]Dr. Villa Yanes UA PROTEIN 100 mg/dl Abnormal NEGATIVE/ TRACE [facility] Comment on above: Performed By: #### U AMIC ####[facility] Ljdntnlisa[address] [place], [place] [address]Dr. Villa Yanes Urobilinogen Qn (U) 0.2 {Mackenzie'U}/dL Normal 0.2 - 1. 0 [facility] Comment on above: Performed By: #### U AMIC ####[facility] I[address]wwvjhad[address] [place] [address]Dr. Villa Yanes WBC NONE SEEN Normal NONE SEEN [facility] Comment on above: Performed By: #### U AMIC ####[facility] Neoxlrzgad[address] [place] [address]Dr. Villa Yanes ACETONE SERUMon 08-17-2022 ACETONE Negative Normal NEGATIVE [facility] Comment on above: Performed By: #### A CETON ####[facility] Onlzczjdir[address] [place], [place] [address]Dr. Villa Yanes CBC AUTO DIFFon 08-17-2022 BASO # 0.1 103/ul Normal 0.0-0.1 [facility] Comment on above: Performed By: #### C BC ####[facility] Rvqapvakts[address] [place] [address]Dr. Villa Yanes Basophils/100 WBC (Bld) 0.4 % Normal 0.2-2.0 [facility] Comment on above: Performed By: #### C BC ####[facility] Pcetdxxcfx[address] [place] [address]Dr. Villa Yanes EO # 0.1 103/ul Normal 0.0-0.7 [facility] Comment on above: Performed By: #### C BC ####[facility] Npdjevvdep[address] [place] [address]Dr. Villa Yanes Eosinophils/100 WBC (Bld) 0.4 % Critically low 0.9-7.0 [facility] Comment on above: Performed By: #### C BC ####[facility] Indptklesg[address] [place] [address]Dr. Villa Yanes Erythrocyte distribution width (RBC) [Ratio] 12.5 % Normal 11.0-15.0 [facility] Comment on above: Performed By: #### C BC ####[facility] Chitjocjtt[address] [place] [address]Dr. Villa Yanes Hematocrit (Bld) [Volume fraction] 37.8 % Critically low 42.0-54.0 [facility] Comment on above: Performed By: #### C BC ####[facility] Pmzromkcre[address] [place] [address]Dr. Brooklynkaren Yanes Hemoglobin (Bld) [Mass/Vol] 12.4 g/dL Critically low 14.0-18.0 [facility] Comment on above: Performed By: #### C BC ####[facility] Ncijfnmxgx6[address] [place] [address]Dr. Villa Yanes IG # 0.16 10e3/ul Critically high 0.00-0.03 [facility] Comment on above: Performed By: #### C BC ####[facility] Eouzbgwfqx[address] [place] [address]Dr. Villa Yanes IG % 1.2 % Critically high 0.0-0.5 [facility] Comment on above: Performed By: #### C BC ####[facility] Immazdeovc[address] [place] [address]Dr. Villa Yanes LYMPH # 1.1 103/ul Critically low 1.2-3.8 [facility] Comment on above: Performed By: #### C BC ####[facility] Thmoaqtlbe38[address] [place] [address]Dr. Villa Yanes Lymphocytes/100 WBC (Bld) 8.0 % Critically low 20.5-60.0 [facility] Comment on above: Performed By: #### C BC ####[facility] Zzpykjfsfo[address] [place] [address]Dr. Villa Yanes MANUAL DIFF REQ NO Normal [facility] Comment on above: Performed By: #### C BC ####[facility] Qibujftygb[address] [place], [place] [address]DrBrenden Yanes MCH (RBC) [Entitic mass] 32.0 pg Normal 25.9-34.0 [facility] Comment on above: Performed By: #### C BC ####[facility] Eqwstjbpoa[address] [place] [id number]. Villa Yanes MCHC (RBC) [Mass/Vol] 32.8 g/dL Normal 29.9-35.2 [facility] Comment on above: Performed By: #### C BC ####[facility] [address]qkqpisjor[address] [place] [address]Dr. Villa Yanes MCV (RBC) [Entitic vol] 97.7 fL Critically high 80.0-94.0 [facility] Comment on above: Performed By: #### C BC ####[facility] Dfygiygdsm[address] [place] [address]Dr. Villa Yanes MONO # 0.9 103/ul Critically high 0.3-0.8 [facility] Comment on above: Performed By: #### C BC ####[facility] Ahyyghkocn[address] [place] [address]Dr. [place]karen Yanes Monocytes/100 WBC (Bld) 6.4 % Normal 1.7-12.0 [facility] Comment on above: Performed By: #### C BC ####[facility] Cylpylmczm[address] [place] [address]Dr. Villa Yanes NEUT # 11.3 103/ul Critically high 1.4-6.5 [facility] Comment on above: Performed By: #### C BC ####[facility] Mtrrnfznim26[address] [place] [address]Dr. Villa Joaquín Neutrophils/100 WBC (Bld) 83.6 % Critically high 43.0-75.0 [facility] Comment on above: Performed By: #### C BC ####[facility] Savxsdskki39[address] [place] [address]Dr. Villa Yanes Platelet mean volume (Bld) [Entitic vol] 9.2 fL Critically low 9.5-13.5 [facility] Comment on above: Performed By: #### C BC ####[facility] Tqqxclwnhu[address] [place] [id number]. Villa Joaquín PLT 279 103/ul Normal 150-450 [facility] Comment on above: Performed By: #### C BC ####[facility] Mfjrhgshga75[address] [place] [address]Dr. Villa Yanes RBC 3.87 106/ul Critically low 4.70-6.10 [facility] Comment on above: Performed By: #### C BC ####[facility] Oqhnurdfqk3[address] [place] [address]Dr. Villa Yanes WBC 13.6 103/ul Critically high 4.0-11.0 [facility] Comment on above: Performed By: #### C BC ####[facility] Pvwuvelyty[address] [place], [place] [address]Dr. Villa Yanes LACTATE/LACTIC ACIDon 2022 Lactate [Moles/Vol] 1.4 mmol/L Normal 0.4-2.0 [facility] Comment on above: Performed By: #### L ACT ####[facility] Hvypejuzvd[address] [place], [place] [address]Dr. Villa Yanes Lactate [Moles/Vol] 1.6 mmol/L Normal 0.4-2.0 [facility] Comment on above: Performed By: #### L ACT ####[facility] Cuafrpbmki[address] [place], [place] [address]Dr. Villa Yanes LIPASEon 08-17-2022 Lipase [Catalytic activity/Vol] 37.0 U/L Critically low 73.0-393.0 [facility] Comment on above: Performed By: #### L IPA ####[facility] Glflvnpqay9[address] [place], [place] [address]Dr. [place]karen Joaquín POINT OF CARE GLUCOSEon 07-23 Glucose [Mass/Vol] 118 mg/dL Critically high 74-106 [facility] Comment on above: Performed By: #### P OCGLUC ####[facility] Jevmrjswpe[address] [place], [place] [address]Dr. Villa Yanes Glucose [Mass/Vol] 124 mg/dL Critically high 74-106 [facility] Comment on above: Performed By: #### P OCGLUC ####[facility] Uqfrsxrvlq95[address] [place], [place] [address]Dr. Villa Yanes PROF 14(COMP METB)on 023 Albumin [Mass/Vol] 3.2 g/dL Critically low 3.4-5.0 [facility] Comment on above: Performed By: #### C SHALOM, HSTROPN ####[facility] Kszwaeigyw[address] [place] [address]Dr. Villa Yanes Albumin/Globulin [Mass ratio] 1.0 {ratio} Normal [facility] Comment on above: Performed By: #### C SHALOM, HSTROPN ####[facility] Eqvlpiczap25[address] [place] [address]Dr. Villa Yanes ALP [Catalytic activity/Vol] 148 U/L Critically high 46-116 [facility] Comment on above: Performed By: #### C SHALOM, HSTROPN ####[facility] Umblbtdgre74[address] [place] [address]Dr. Villa Yanes ALT [Catalytic activity/Vol] 11 U/L Critically low 16-63 [facility] Comment on above: Performed By: #### C SHALOM, HSTROPN ####[facility] Iuxzpdyhjp7[address] [place], [place] [address]Dr. Villa Yanes Anion gap [Moles/Vol] 14.2 mmol/L Normal [facility] Comment on above: Performed By: #### C SHALOM, HSTROPN ####[facility] Strrlbkqpw[address] [place], [place] [address]Dr. Villa Yanes AST [Catalytic activity/Vol] 9 U/L Critically low 15-37 [facility] Comment on above: Performed By: #### C SHALOM HSTROPN ####[facility] Ifrcafardk[address] [place], [place] [address]Dr. Villa Yanes Bilirubin [Mass/Vol] 0.4 mg/dL Normal 0.2-1.0 [facility] Comment on above: Performed By: #### C SHALOM, HSTROPN ####[facility] Tusxcqmuxx[address] [place], [place] [address]Dr. Villa Yanes Calcium [Mass/Vol] 9.3 mg/dL Normal 8.5-10.1 [facility] Comment on above: Performed By: #### C MP, HSTROPN ####[facility] Kfl[address]qzynqh[address] [place] [address]Dr. Villa Yanes Chloride [Moles/Vol] 104 mmol/L Normal 98-107 [facility] Comment on above: Performed By: #### C MP, HSTROPN ####[facility] Befbzqrmuq38[address] [place] [address]Dr. Villa Yanes CO2 [Moles/Vol] 27.5 mmol/L Normal 21.0-32.0 [facility] Comment on above: Performed By: #### C MP, HSTROPN ####[facility] Hbxafcmgne7[address] [place] [address]Dr. Villa Yanes Creatinine [Mass/Vol] 1.11 mg/dL Normal 0.70-1.30 [facility] Comment on above: Performed By: #### C MP, HSTROPN ####[facility] Fbtqrirbyt[address] [place], [place] [address]Dr. Villa Yanes EGFR-AF MACEDONIAN >60 Normal >=60 [facility] Comment on above: Performed By: #### C MP, HSTROPN ####[facility] Oikhjonhsv029[address] [place], [place] [address]Dr. Villa Yanes EGFR-NON AF MACEDONIAN >60 Normal >=60 [facility] Comment on above: Performed By: #### C MP, HSTROPN ####[facility] Mlhhwfkciy9[address] [place] [address]Dr. Villa Yanes Globulin (S) [Mass/Vol] 3.2 g/dL Normal [facility] Comment on above: Performed By: #### C MP, HSTROPN ####[facility] Rklawyavmr[address] [place] [address]Dr. Villa Yanes Glucose [Mass/Vol] 163 mg/dL Critically high 74-106 [facility] Comment on above: Performed By: #### C MP, HSTROPN ####[facility] Demqcpoers750[address] [place] [address]Dr. Villa Yanes Potassium [Moles/Vol] 3.7 mmol/L Normal 3.5-5.1 [facility] Comment on above: Performed By: #### C SHALOM, HSTROPN ####[facility] Cyoitzzgjh8[address] [place] [address]Dr. Villa Yanes Protein [Mass/Vol] 6.4 g/dL Normal 6.4-8.2 [facility] Comment on above: Performed By: #### C SHALOM, HSTROPN ####[facility] Crodbbomvm[address] [place], [place] [address]Dr. Villa Yanes Sodium [Moles/Vol] 142 mmol/L Normal 136-145 [facility] Comment on above: Performed By: #### C SHALOM, HSTROPN ####[facility] Xaoqsnkbjv[address] [place], [place] [address]Dr. Villa Yanes Urea nitrogen [Mass/Vol] 23.0 mg/dL Critically high 7.0-18.0 [facility] Comment on above: Performed By: #### C SHALOM, HSTROPN ####[facility] Omkfxdoaax[address] [place], [place] [address]Dr. Villa Yanes Urea nitrogen/Creatinine [Mass ratio] 20.7 mg/mg Normal [facility] Comment on above: Performed By: #### C SHALOM HSTROPN ####[facility] Dfbzlqtktp[address] [place], [place] [address]Dr. Villa Yanes RESPIRATORY PANEL PLUSon Adenovirus Not detected Normal NOT DETECTED [facility] Comment on above: Performed By: #### R SPLUS ####[facility] Jrgppzuhtw09[address] [place], [place] [address]Dr. Villa Yanes B. Parapertusis Not detected Normal NOT DETECTED [facility] Comment on above: Performed By: #### R SPLUS ####[facility] Nwauthyimu7[address] [place], [place] [address]Dr. Villa Yanes B. Pertussis Not detected Normal NOT DETECTED [facility] Comment on above: Performed By: #### R SPLUS ####[facility] Arbqjjyrig[address] [place], [place] [address]Dr. Villa Yanes Chlamydia Pneumoniae Not detected Normal NOT DETECTED [facility] Comment on above: Performed By: #### R SPLUS ####[facility] Maxygnyeta[address] [place] [address]Dr. Villa [facility] Coronavirus 229E Not detected Normal NOT DETECTED [facility] Comment on above: Performed By: #### R SPLUS ####[facility] Jncepsmegg15[address] [place], [place] [address]Dr. Villa [facility] Coronavirus HKU1 Not detected Normal NOT DETECTED [facility] Comment on above: Performed By: #### R SPLUS ####[facility] [address]ux[address]udhrcu[address] [address] [place], [place] [address]Dr. [facility] Coronavirus NL63 Not detected Normal NOT DETECTED [facility] Comment on above: Performed By: #### R SPLUS ####[facility] Xganwupgek[address] [place], [place] [address]Dr. [facility] Coronavirus OC43 Not detected Normal NOT DETECTED [facility] Comment on above: Performed By: #### R SPLUS ####[facility] Vbgdiedtnr039[address] [place], [place] [address]Dr. Yikaren Yanes Influenza A H1 Not detected Normal NOT DETECTED [facility] Comment on above: Performed By: #### R SPLUS ####[facility] Agkciiwppu101[address] [place], [place] [address]Dr. Villa Yanes Influenza A H1 2009 Not detected Normal NOT DETECTED [facility] Comment on above: Performed By: #### R SPLUS ####[facility] Tvjqfxfqjk64[address] [place], [place] [address]Dr. Yikaren Yanes Influenza A H3 Not detected Normal NOT DETECTED [facility] Comment on above: Performed By: #### R SPLUS ####[facility] Hbbhidwrqi58[address] [place], [place] [address]Dr. Yikaren Yanes Influenza B Not detected Normal NOT DETECTED [facility] Comment on above: Performed By: #### R SPLUS ####[facility] Zqaxzzvsyl55[address] [place], [place] [address]Dr. Yikaren Yanes Metapneumovirus Not detected Normal NOT DETECTED [facility] Comment on above: Performed By: #### R SPLUS ####[facility] [address] [place] [address]Dr. Villa Yanes Mycoplas. Pneumoniae Not detected Normal NOT DETECTED [facility] Comment on above: Performed By: #### R SPLUS ####[facility] Evxyraywzh[address] [place], [place] [address]Dr. Yikaren Yanes Parainfluenza 1 Not detected Normal NOT DETECTED [facility] Comment on above: Performed By: #### R SPLUS ####[facility] Ngvrmbxqzf617[address] [place], [place] [address]Dr. Yikaren Yanes Parainfluenza 2 Not detected Normal NOT DETECTED [facility] Comment on above: Performed By: #### R SPLUS ####[facility] Vgczgffptu[address] [place], [place] [address]Dr. Villa Yanes Parainfluenza 3 Not detected Normal NOT DETECTED [facility] Comment on above: Performed By: #### R SPLUS ####[facility] Gzdggbwtbt838[address] [place], [place] [address]Dr. Yikaren Yanes Parainfluenza 4 Not detected Normal NOT DETECTED [facility] Comment on above: Performed By: #### R SPLUS ####[facility] Rrlrvkuebv727[address] [place], [place] [address]Dr. Yilan Yanes Rhino/Enterovirus Not detected Normal NOT DETECTED [facility] Comment on above: Performed By: #### R SPLUS ####[facility] Fdjwzrhqqv72[address] [place], [place] [address]Dr. Yikaren Yanes RP2 Header 1 RESPIRATORY PANEL: VIRUSES Normal [facility] Comment on above: Performed By: #### R SPLUS ####[facility] Ioiirwtdxb40[address] [place], [place] [address]Dr. Yilan Yanes RP2 Header 2 RESPIRATORY PANEL: BACTERIA Normal [facility] Comment on above: Performed By: #### R SPLUS ####[facility] Iovgdcjqxq9[address] [place], [place] [address]Dr. Yilan Yanes RSV Not detected Normal NOT DETECTED [facility] Comment on above: Performed By: #### R SPLUS ####[facility] [address]urs[address] [place], [place] [address]Eb. Villa Yanes SARS-CoV-2 (COVID-19) RNA SHELLY+probe Ql (Unsp spec) Not detected Normal NOT DETECTED [facility] Comment on above: Performed By: #### R SPLUS ####[facility] Bts[address] [place], [place] [address]Sa. Villa Yanes TROPONIN, HIGH SENSITIVITYon 08-17-2022 HSTROP 9.7 pg/mL Normal 4.0-76.1 [facility] Comment on above: Result Comment: CUT- OFF POINTS HAVE BEEN ESTABLISHED BASED ON THE FOURTH UNIVERSAL DEFINITIONS OF MYOCARDIALINFARCTION. THE UPPER REFERENCE LIMIT (URL) OF TROPONIN, DEFINED THE 99TH PERCENTILE OFcTnI DISTRIBUTION IN A REFERENCE POPULATION, HAS BEEN CONFIRMED THE DECISION THRESHOLDFOR CT DIAGNOSIS. Performed By: #### C MP, HSTROPN ####[facility] [address] [place], [place] [address]Px. 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 Normal [employer] Tobacco Screening.on 023 Adult depression screening assessment No [facility] [employer] DO Work Phone: Fall risk assessment b) One or more fall s in the last year [facility] [employer] Work Phone: Tobacco use status CPHS a) Yes [facility] [employer] Work Phone: XR ABD FLAT_UPon 07-31-2022 XR ABD FLAT_UP Normal [facility] AMMONIAon 07-30-2022 Ammonia (P) [Moles/Vol] 10 umol/L Critically low 11-32 [facility] Comment on above: Performed By: #### A MM ####[facility] Bstzuciron[address] [place], [place] [address]Dr. Villa Yanes AMYLASEon 07-30-2022 Amylase [Catalytic activity/Vol] 36 U/L Normal 25-115 [facility] Comment on above: Performed By: #### L IPA, TSH, CANDIE, T7, CMP ####[facility] Vbicqcscas[address] [place], [place] [address]Dr. Villa Yanes CBC AUTO DIFFon 07-30-2022 BASO # 0.1 103/ul Normal 0.0-0.1 [facility] Comment on above: Performed By: #### C BC ####[facility] Mwoqapujzv[address] [place], [place] [address]Dr. Villa Yanes Basophils/100 WBC (Bld) 0.7 % Normal 0.2-2.0 [facility] Comment on above: Performed By: #### C BC ####[facility] Oiuwaegcqn[address] [place], [place] [address]Dr. Villa Yanes EO # 0.0 103/ul Normal 0.0-0.7 [facility] Comment on above: Performed By: #### C BC ####[facility] Yquyrfheuy634[address] [place], [place] [address]Dr. Villa Yanes Eosinophils/100 WBC (Bld) 0.3 % Critically low 0.9-7.0 [facility] Comment on above: Performed By: #### C BC ####[facility] Jswtcefxyi235[address] [place], [place] [address]Dr. Villa Yanes Erythrocyte distribution width (RBC) [Ratio] 13.1 % Normal 11.0-15.0 [facility] Comment on above: Performed By: #### C BC ####[facility] Forwausswi[address] [place], [place] [address]Dr. Brooklynkaren Yanes Hematocrit (Bld) [Volume fraction] 41.2 % Critically low 42.0-54.0 [facility] Comment on above: Performed By: #### C BC ####[facility] [address] [place] [id number]. Villa Yanes Hemoglobin (Bld) [Mass/Vol] 13.7 g/dL Critically low 14.0-18.0 [facility] Comment on above: Performed By: #### C BC ####[facility] [address]xb[address] [place] [address]Dr. Villa Yanes IG # 0.41 10e3/ul Critically high 0.00-0.03 [facility] Comment on above: Performed By: #### C BC ####[facility] [address]rc[address] [place] [address]Dr. Villa Yanes IG % 2.8 % Critically high 0.0-0.5 [facility] Comment on above: Performed By: #### C BC ####[facility] Kazuwxvgjc069[address] [place], [place] [address]Dr. Villa Yanes LYMPH # 1.7 103/ul Normal 1.2-3.8 [facility] Comment on above: Performed By: #### C BC ####[facility] Fnfgjhzqnq[address] [place], [place] [address]Dr. Villa Yanes Lymphocytes/100 WBC (Bld) 11.4 % Critically low 20.5-60.0 [facility] Comment on above: Performed By: #### C BC ####[facility] [address] [place] [address]Dr. Villa Yanes MANUAL DIFF REQ NO Normal [facility] Comment on above: Performed By: #### C BC ####[facility] Mgbheamyvb904[address] [place], [place] [address]Dr. Villa Yanes MCH (RBC) [Entitic mass] 31.9 pg Normal 25.9-34.0 [facility] Comment on above: Performed By: #### C BC ####[facility] Nqlfqwkbox414[address] [place], [place] [address]Dr. Villa Yanes MCHC (RBC) [Mass/Vol] 33.3 g/dL Normal 29.9-35.2 [facility] Comment on above: Performed By: #### C BC ####[facility] Bjxusuyafe[address] [place] [id number]. Villa Yanes MCV (RBC) [Entitic vol] 96.0 fL Critically high 80.0-94.0 [facility] Comment on above: Performed By: #### C BC ####[facility] Os[address]wdhl[address] [place] [address]Dr. Villa Yanes MONO # 0.9 103/ul Critically high 0.3-0.8 [facility] Comment on above: Performed By: #### C BC ####[facility] Z[address]xxvtaqe[address] [place] [address]Dr. Villa Yanes Monocytes/100 WBC (Bld) 6.4 % Normal 1.7-12.0 [facility] Comment on above: Performed By: #### C BC ####[facility] Rjlsarihgw[address] [place], [place] [address]Dr. Villa Yanes NEUT # 11.6 103/ul Critically high 1.4-6.5 [facility] Comment on above: Performed By: #### C BC ####[facility] Fstrj[address] [place], [place] [address]Dr. Villa Yanes Neutrophils/100 WBC (Bld) 78.4 % Critically high 43.0-75.0 [facility] Comment on above: Performed By: #### C BC ####[facility] Wtqspktcsk8[address] [place], [place] [address]Dr. Villa Yanes Platelet mean volume (Bld) [Entitic vol] 9.2 fL Critically low 9.5-13.5 [facility] Comment on above: Performed By: #### C BC ####[facility] P[address]cttryx[address] [place] [address]Dr. Villa Yanes PLT 368 103/ul Normal 150-450 [facility] Comment on above: Performed By: #### C BC ####[facility] Dkuqdamfep[address] [place], [place] [address]Dr. Villa Joaquín RBC 4.29 106/ul Critically low 4.70-6.10 [facility] Comment on above: Performed By: #### C BC ####[facility] K[address] [place] [address]Dr. Villa Yanes WBC 14.8 103/ul Critically high 4.0-11.0 [facility] Comment on above: Performed By: #### C BC ####[facility] Lozqr[address]qyo[address] [place] [id number]. Villa Yanes [facility] SARS-CoV-2 (COVID-19) RNA SHELLY+probe Ql (Unsp spec) Not detected Normal NOT DETECTED [facility] Comment on above: Result Comment: When diagnostic [...] for this test is supported by the [place] of [employer] and Human Service's declaration that [...] be used). Performed By: #### C VDTBH ####[facility] [address]todese[address] [place] [address]Dr. Villa Yanes FREE THYROXINE INDEX T7on FTI 2.55 Normal 1.30-4.50 [facility] Comment on above: Performed By: #### L IPA, TSH, CANDIE, T7, CMP ####[facility] Uqqoz[address]aeju[address] [place], [place] [address]Dr. Villa Yanes T3U 38.0 % Normal 33.0-40.0 [facility] Comment on above: Performed By: #### L IPA, TSH, CANDIE, T7, CMP ####[facility] [address] [place] [id number]. Villa Yanes T4 [Mass/Vol] 6.70 ug/dL Normal 4.50-12.10 [facility] Comment on above: Performed By: #### L IPA, TSH, CANDIE, T7, CMP ####[facility] Zxhjbrhcri[address] [place], [place] [address]Dr. Villa Yanes INFLUENZA A AND B AGon 07-30 INFLUANEGH SEE BELOW Normal [facility] Comment on above: Result Comment: Nega tive for Flu A protein angiten. Infection due to Flu A cannot be ruled out. Flu A angiten in the sample may be below the detection limit of the test. Performed By: #### I NFLUAB ####[facility] [address] [place] [address]. Villa Yanes INFLUBNEGH SEE BELOW Normal [facility] Comment on above: Result Comment: Nega tive for Flu B protein antigen. Infection due to Flu B cannot be ruled out. Flu B antigen in the sample may be below the detection limit of the test. Performed By: #### I NFLUAB ####[facility] Unjdzeeukf[address] [place], [place] [address]Dr. [facility] INFLUENZA A AG Negative Normal NEGATIVE SEE COMMENT [facility] Comment on above: Performed By: #### I NFLUAB ####[facility] Majunufbnc[address] [place] [address]. Villa Yanes INFLUENZA B AG Negative Normal NEGATIVE SEE COMMENT [facility] Comment on above: Performed By: #### I NFLUAB ####[facility] Kltupmozet24[address] [place], [place] [address]Dr. Villa Yanes IRONon 07-30-2022 Iron [Mass/Vol] 44.0 ug/dL Critically low 65.0-175.0 [facility] Comment on above: Performed By: #### I JOSE ####[facility] Hzcwpobtwv9[address] [place], [place] [address]Dr. Villa Yanes LIPASEon 07-30-2022 Lipase [Catalytic activity/Vol] 44.0 U/L Critically low 73.0-393.0 [facility] Comment on above: Performed By: #### L IPA, TSH, CANDIE, T7, CMP ####[facility] [address] [place] [address]Dr. Villa Yanes PROF 14(COMP METB)on 023 Albumin [Mass/Vol] 3.3 g/dL Critically low 3.4-5.0 [facility] Comment on above: Performed By: #### L IPA, TSH, CADNIE, T7, CMP ####[facility] Bsibkdsfwn8[address] [place], [place] [address]Dr. Villa Yanes Albumin/Globulin [Mass ratio] 0.9 {ratio} Normal [facility] Comment on above: Performed By: #### L IPA, TSH, CANDIE, T7, CMP ####[facility] Kwugupmpmq[address] [place], [place] [address]Dr. Villa Yanes ALP [Catalytic activity/Vol] 163 U/L Critically high 46-116 [facility] Comment on above: Performed By: #### L IPA, TSH, CANDIE, T7, CMP ####[facility] [address]vslonafzs[address] [place], [place] [address]Dr. Villa Yanes ALT [Catalytic activity/Vol] 10 U/L Critically low 16-63 [facility] Comment on above: Performed By: #### L IPA, TSH, CANDIE, T7, CMP ####[facility] Zyrlyzspbt[address] [place], [place] [address]Dr. Villa Yanes Anion gap [Moles/Vol] 13.1 mmol/L Normal [facility] Comment on above: Performed By: #### L IPA, TSH, CANDIE, T7, CMP ####[facility] F[address]wcqtfx[address] [place], [place] [address]Dr. Villa Yanes AST [Catalytic activity/Vol] 12 U/L Critically low 15-37 [facility] Comment on above: Performed By: #### L IPA, TSH, CANDIE, T7, CMP ####[facility] Ummghlchil[address] [place], [place] [address]Dr. Villa Yanes Bilirubin [Mass/Vol] 0.4 mg/dL Normal 0.2-1.0 [facility] Comment on above: Performed By: #### L IPA, TSH, CANDIE, T7, CMP ####[facility] [address]qlltd[address] [place] [address]Dr. Villa Yanes Calcium [Mass/Vol] 9.8 mg/dL Normal 8.5-10.1 [facility] Comment on above: Performed By: #### L IPA, TSH, CANDIE, T7, CMP ####[facility] Ikzhavqwfw[address] [place], [place] [address]Dr. Villa Yanes Chloride [Moles/Vol] 106 mmol/L Normal 98-107 [facility] Comment on above: Performed By: #### L IPA, TSH, CANDIE, T7, CMP ####[facility] Esbelbjdur[address] [place], [place] [address]Dr. Villa Yanes CO2 [Moles/Vol] 27.3 mmol/L Normal 21.0-32.0 [facility] Comment on above: Performed By: #### L IPA, TSH, CANDIE, T7, CMP ####[facility] [address]atqycz[address] [place], [place] [address]Dr. Villa Yanes Creatinine [Mass/Vol] 1.23 mg/dL Normal 0.70-1.30 [facility] Comment on above: Performed By: #### L IPA, TSH, CANDIE, T7, CMP ####[facility] Yyjhruvahh[address] [place], [place] [address]Dr. Villa Yanes EGFR-AF MACEDONIAN >60 Normal >=60 [facility] Comment on above: Performed By: #### L IPA, TSH, CANDIE, T7, CMP ####[facility] Ypcgaioyio[address] [place], [place] [address]Dr. Villa Yanes EGFR-NON AF MACEDONIAN 57 mL/min/1.73m2 Critically low >=60 [facility] Comment on above: Performed By: #### L IPA, TSH, CANDIE, T7, CMP ####[facility] Aqbdswprfl[address] [place], [place] [address]Dr. Villa Yanes Globulin (S) [Mass/Vol] 3.7 g/dL Normal [facility] Comment on above: Performed By: #### L IPA, TSH, CANDIE, T7, CMP ####[facility] D[address]omh[address] [place] [address]Dr. Villa Yanes Glucose [Mass/Vol] 155 mg/dL Critically high 74-106 T [facility] Comment on above: Performed By: #### L IPA, TSH, CANDIE, T7, CMP ####[facility] Jmllcetvxj[address] [place], [place] [address]Dr. Villa Yanes Potassium [Moles/Vol] 4.4 mmol/L Normal 3.5-5.1 [facility] Comment on above: Performed By: #### L IPA, TSH, CANDIE, T7, CMP ####[facility] Smmunvxbsb[address] [place], [place] [address]Dr. Villa Yanes Protein [Mass/Vol] 7.0 g/dL Normal 6.4-8.2 [facility] Comment on above: Performed By: #### L IPA, TSH, CANDIE, T7, CMP ####[facility] Brfmremejg[address] [place], [place] [address]Dr. Villa Yanes Sodium [Moles/Vol] 142 mmol/L Normal 136-145 [facility] Comment on above: Performed By: #### L IPA, TSH, CANDIE, T7, CMP ####[facility] Uxjgcxonxk[address] [place], [place] [address]Dr. Villa Yanes Urea nitrogen [Mass/Vol] 25.0 mg/dL Critically high 7.0-18.0 [facility] Comment on above: Performed By: #### L IPA, TSH, CANDIE, T7, CMP ####[facility] Cqpggreoom[address] [place], [place] [address]Dr. Villa Yanes Urea nitrogen/Creatinine [Mass ratio] 20.3 mg/mg Normal [facility] Comment on above: Performed By: #### L IPA, TSH, CANDIE, T7, CMP ####[facility] Egffaozmnp[address] [place], [place] [address]Dr. Villa Yanes TSHon 07-30-2022 TSH 0.259 uIU/mL Critically low 0.358-3.740 [facility] Comment on above: Performed By: #### L IPA, TSH, CANDIE, T7, CMP ####[facility] [address]qdr[address]eiis[address] [place] [address]Dr. Villa Joaquín XR CHEST 2 Von 07-30-2022 XR CHEST 2 V Normal [facility] CBC AUTO DIFFon 07-01-2022 BASO # 0.0 103/ul Normal 0.0-0.1 [facility] Comment on above: Performed By: #### C BC ####[facility] Ukbre[address]qqi[address] [place] [address]Dr. Villa Yanes Basophils/100 WBC (Bld) 0.1 % Critically low 0.2-2.0 [facility] Comment on above: Performed By: #### C BC ####[facility] Yiaauriffj[address] [place], [place] [address]Dr. Villa Yanes EO # 0.1 103/ul Normal 0.0-0.7 [facility] Comment on above: Performed By: #### C BC ####[facility] Pfcsgleqfv[address] [place], [place] [address]Dr. Villa Yanes Eosinophils/100 WBC (Bld) 0.5 % Critically low 0.9-7.0 [facility] Comment on above: Performed By: #### C BC ####[facility] Evhkdytesg[address] [place], [place] [address]Dr. Villa Yanes Erythrocyte distribution width (RBC) [Ratio] 12.7 % Normal 11.0-15.0 [facility] Comment on above: Performed By: #### C BC ####[facility] Kflgiegwxl[address] [place], [place] [address]Dr. Villa Yanes Hematocrit (Bld) [Volume fraction] 37.6 % Critically low 42.0-54.0 [facility] Comment on above: Performed By: #### C BC ####[facility] Mdrcpotzly[address] [place], [place] [address]Dr. Villa Yanes Hemoglobin (Bld) [Mass/Vol] 12.2 g/dL Critically low 14.0-18.0 [facility] Comment on above: Performed By: #### C BC ####[facility] Qimxxijlhz[address] [place], [place] [address]Dr. Villa Yanes IG # 0.10 10e3/ul Critically high 0.00-0.03 [facility] Comment on above: Performed By: #### C BC ####[facility] [address] [place] [address]DrBrenden Villa Joaquín IG % 1.0 % Critically high 0.0-0.5 [facility] Comment on above: Performed By: #### C BC ####[facility] [address]ysy[address] [place] [address]DrBrenden Villa Joaquín LYMPH # 1.4 103/ul Normal 1.2-3.8 [facility] Comment on above: Performed By: #### C BC ####[facility] Mxvujyupgg[address] [place] [address]DrBrenden Yanes Lymphocytes/100 WBC (Bld) 13.5 % Critically low 20.5-60.0 [facility] Comment on above: Performed By: #### C BC ####[facility] [address]xxyw[address] [place], [place] [address]DrBrenden Brooklynkaren Yanes MANUAL DIFF REQ NO Normal [facility] Comment on above: Performed By: #### C BC ####[facility] Wqwpkmbiso[address] [place] [address]DrBrenden Villa Joaquín MCH (RBC) [Entitic mass] 32.7 pg Normal 25.9-34.0 [facility] Comment on above: Performed By: #### C BC ####[facility] Xms[address]lqar[address] [place] [address]DrBrenden Villa Joaquín MCHC (RBC) [Mass/Vol] 32.4 g/dL Normal 29.9-35.2 [facility] Comment on above: Performed By: #### C BC ####[facility] [address] [place] [address]DrBrenden Yanes MCV (RBC) [Entitic vol] 100.8 fL Critically high 80.0-94.0 [facility] Comment on above: Performed By: #### C BC ####[facility] Ensqnwrkrm[address] [place], [place] [address]DrBrenden Yaens MONO # 0.8 103/ul Normal 0.3-0.8 [facility] Comment on above: Performed By: #### C BC ####[facility] Khxamowtzn[address] [place] [address]Dr. Villa Yanes Monocytes/100 WBC (Bld) 7.9 % Normal 1.7-12.0 [facility] Comment on above: Performed By: #### C BC ####[facility] Qvycfvlshk[address] [place] [address]Dr. Villa Yanes NEUT # 7.9 103/ul Critically high 1.4-6.5 [facility] Comment on above: Performed By: #### C BC ####[facility] Pjrlueyixz[address] [place] [address]Dr. Villa Yanes Neutrophils/100 WBC (Bld) 77.0 % Critically high 43.0-75.0 [facility] Comment on above: Performed By: #### C BC ####[facility] Hdgkeblstu[address] [place], [place] [address]Dr. Villa Yanes Platelet mean volume (Bld) [Entitic vol] 10.1 fL Normal 9.5-13.5 [facility] Comment on above: Performed By: #### C BC ####[facility] Vkonenjnjm[address] [place], [place] [address]Dr. Villa Yanes PLT 196 103/ul Normal 150-450 [facility] Comment on above: Performed By: #### C BC ####[facility] Fxrwceqdlp[address] [place] [address]Dr. Villa Yanes RBC 3.73 106/ul Critically low 4.70-6.10 [facility] Comment on above: Performed By: #### C BC ####[facility] Bhuawivozn[address] [place] [id number]. Villa Yanes WBC 10.3 103/ul Normal 4.0-11.0 [facility] Comment on above: Performed By: #### C BC ####[facility] Orpuvvvnha16[address] [place] [id number]. Villa Yanes CRPon 07-01-2022 CRP 0.8 mg/dL Normal <=1.0 [facility] Comment on above: Performed By: #### B MP, CRP ####[facility] Ylbwjlxgvm[address] [place] [address]Dr. Villa Yanes PROF CHEM 8 (BAS METB)on Anion gap [Moles/Vol] 12.1 mmol/L Normal [facility] Comment on above: Performed By: #### B MP, CRP ####[facility] Jlabfikjgu87[address] [place], [place] [address]Dr. Villa Yanes Calcium [Mass/Vol] 9.2 mg/dL Normal 8.5-10.1 [facility] Comment on above: Performed By: #### B MP, CRP ####[facility] Hxcjmxssec56[address] [place], [place] [address]Dr. Villa Yanes Chloride [Moles/Vol] 105 mmol/L Normal 98-107 [facility] Comment on above: Performed By: #### B MP, CRP ####[facility] Odztkgttsn5[address] [place], [place] [address]Dr. Villa Yanes CO2 [Moles/Vol] 26.8 mmol/L Normal 21.0-32.0 [facility] Comment on above: Performed By: #### B MP, CRP ####[facility] Xmbucgbvhw415[address] [place], [place] [address]Dr. Villa Yanes Creatinine [Mass/Vol] 1.11 mg/dL Normal 0.70-1.30 [facility] Comment on above: Performed By: #### B MP, CRP ####[facility] Xztkgwyaia695[address] [place], [place] [address]Dr. Villa Yanes EGFR-AF MACEDONIAN >60 Normal >=60 [facility] Comment on above: Performed By: #### B MP, CRP ####[facility] Atmfsyjynu632[address] [place], [place] [address]Dr. Villa Yanes EGFR-NON AF MACEDONIAN >60 Normal >=60 [facility] Comment on above: Performed By: #### B MP, CRP ####[facility] Gcqhkjdqen44[address] [place], [place] [address]Dr. Villa Yanes Glucose [Mass/Vol] 136 mg/dL Critically high 74-106 T [facility] Comment on above: Performed By: #### B MP, CRP ####[facility] Bioxhagllq834[address] [place], [place] [address]Dr. Villa Yanes Potassium [Moles/Vol] 3.9 mmol/L Normal 3.5-5.1 [facility] Comment on above: Performed By: #### B MP, CRP ####[facility] Xnwesbgxfh197[address] [place], [place] [address]Dr. Villa Joaquín Sodium [Moles/Vol] 140 mmol/L Normal 136-145 [facility] Comment on above: Performed By: #### B MP, CRP ####[facility] Vcjpusvbwc0705[address] [place], [place] [address]Dr. Villa Joaquín Urea nitrogen [Mass/Vol] 28.0 mg/dL Critically high 7.0-18.0 [facility] Comment on above: Performed By: #### B MP, CRP ####[facility] Whuxzaxvts032[address] [place], [place] [address]Dr. Villa Joaquín Urea nitrogen/Creatinine [Mass ratio] 25.2 mg/mg Normal [facility] Comment on above: Performed By: #### B MP, CRP ####[facility] Ceuldegnrn99[address] [place], [place] [address]Dr. Villa Joaquín SED RATE WESTERGRENon 2022 SED RATE 32 mm/hr Critically high <=20 [facility] Comment on above: Performed By: #### S EDR ####[facility] Ydpomdifpt137[address] [place], [place] [address]Dr. Villa Joaquín XR LSPINE 2_3 VIEWSon 2022 XR LSPINE 2_3 VIEWS Normal [facility] CBC AUTO DIFFon 06-29-2022 BASO # 0.0 103/ul Normal 0.0-0.1 [facility] Comment on above: Performed By: #### C BC ####[facility] Fgvmxuuwom[address] [place], [place] [address]Dr. Villa Yanes Basophils/100 WBC (Bld) 0.1 % Critically low 0.2-2.0 [facility] Comment on above: Performed By: #### C BC ####[facility] Knpgwauyxo[address] [place] [address]DrBrenden Yanes EO # 0.0 103/ul Normal 0.0-0.7 [facility] Comment on above: Performed By: #### C BC ####[facility] Gvhbqphpgn9[address] [place], [place] [address]DrBrenden Yanes Eosinophils/100 WBC (Bld) 0.0 % Critically low 0.9-7.0 [facility] Comment on above: Performed By: #### C BC ####[facility] Mjbgsskylm[address] [place], [place] [address]DrBrenden Yanes Erythrocyte distribution width (RBC) [Ratio] 12.6 % Normal 11.0-15.0 [facility] Comment on above: Performed By: #### C BC ####[facility] Patsrdajhq[address] [place], [place] [address]DrBrenden Yanes Hematocrit (Bld) [Volume fraction] 31.6 % Critically low 42.0-54.0 [facility] Comment on above: Performed By: #### C BC ####[facility] Tzwalrvgmf39[address] [place], [place] [address]DrBrenden Yanes Hemoglobin (Bld) [Mass/Vol] 10.1 g/dL Critically low 14.0-18.0 [facility] Comment on above: Performed By: #### C BC ####[facility] Jccricrtyo[address] [place], [place] [address]DrBrenden Yanes IG # 0.10 10e3/ul Critically high 0.00-0.03 [facility] Comment on above: Performed By: #### C BC ####[facility] Qkbzmlfxqs296[address] [place], [place] [address]DrBrenden Yanes IG % 0.9 % Critically high 0.0-0.5 [facility] Comment on above: Performed By: #### C BC ####[facility] Ilytqveaum[address] [place], [place] [address]DrBrenden Yanes LYMPH # 0.3 103/ul Critically low 1.2-3.8 [facility] Comment on above: Performed By: #### C BC ####[facility] Qyxkcpzqoy[address] [place] [address]DrBrenden Yanes Lymphocytes/100 WBC (Bld) 2.5 % Critically low 20.5-60.0 [facility] Comment on above: Performed By: #### C BC ####[facility] Nngznsoeve4724[address] [place], [place] [address]DrBrenden Yanes MANUAL DIFF REQ NO Normal [facility] Comment on above: Performed By: #### C BC ####[facility] Xnwoqyekel240[address] [place], [place] [address]DrBernden Yanes MCH (RBC) [Entitic mass] 32.1 pg Normal 25.9-34.0 [facility] Comment on above: Performed By: #### C BC ####[facility] Orgjwnezfy100[address] [place], [place] [address]DrBrenden Yanes MCHC (RBC) [Mass/Vol] 32.0 g/dL Normal 29.9-35.2 [facility] Comment on above: Performed By: #### C BC ####[facility] Vnfwagujgq[address] [place], [place] [address]DrBrenden Yanes MCV (RBC) [Entitic vol] 100.3 fL Critically high 80.0-94.0 [facility] Comment on above: Performed By: #### C BC ####[facility] Fetkiujwaw34[address] [place], [place] [address]DrBrenden Yanes MONO # 0.2 103/ul Critically low 0.3-0.8 [facility] Comment on above: Performed By: #### C BC ####[facility] Jfsrldshpe50[address] [place], [place] [address]DrBrenden Yanes Monocytes/100 WBC (Bld) 1.8 % Normal 1.7-12.0 [facility] Comment on above: Performed By: #### C BC ####[facility] Likaxmgvyo838[address] [place], [place] [address]DrBrenden Yanes NEUT # 10.8 103/ul Critically high 1.4-6.5 [facility] Comment on above: Performed By: #### C BC ####[facility] Sawzhreznr[address] [place] [address]DrBrenden Yanes Neutrophils/100 WBC (Bld) 94.7 % Critically high 43.0-75.0 [facility] Comment on above: Performed By: #### C BC ####[facility] Gpzpqkngee8[address] [place] [address]Dr. Villa Yanes Platelet mean volume (Bld) [Entitic vol] 10.1 fL Normal 9.5-13.5 [facility] Comment on above: Performed By: #### C BC ####[facility] Iplkebucmr98[address] [place], [place] [address]DrBrenden Yanes PLT 200 103/ul Normal 150-450 [facility] Comment on above: Performed By: #### C BC ####[facility] Yrutjjtsdn88[address] [place], [place] [address]DrBrenden Yanes RBC 3.15 106/ul Critically low 4.70-6.10 [facility] Comment on above: Performed By: #### C BC ####[facility] Juxlvolahx78[address] [place], [place] [address]DrBrenden Yanes WBC 11.4 103/ul Critically high 4.0-11.0 [facility] Comment on above: Performed By: #### C BC ####[facility] Bzjhyxhetc[address] [place], [place] [address]DrBrenden Yanes POINT OF CARE GLUCOSEon Glucose [Mass/Vol] 225 mg/dL Critically high 74-106 T [facility] Comment on above: Performed By: #### P OCGLUC ####[facility] Bxeffdutes[address] [place], [place] [address]DrBrenden Yanes PROF CHEM 8 (BAS METB)on Anion gap [Moles/Vol] 15.6 mmol/L Normal Th [facility] Comment on above: Performed By: #### B MP ####[facility] Qegmzioqci5[address] [place], [place] [address]Dr. Villa Yanes Calcium [Mass/Vol] 8.6 mg/dL Normal 8.5-10.1 [facility] Comment on above: Performed By: #### B MP ####[facility] Beckepiftc[address] [place] [address]Dr. Villa Yanes Chloride [Moles/Vol] 106 mmol/L Normal 98-107 [facility] Comment on above: Performed By: #### B MP ####[facility] Liukkddfef[address] [place] [address]Dr. Villa Yanes CO2 [Moles/Vol] 22.6 mmol/L Normal 21.0-32.0 [facility] Comment on above: Performed By: #### B MP ####[facility] Cxmhkuvsoe97[address] [place] [address]Dr. Villa Yanes Creatinine [Mass/Vol] 1.39 mg/dL Critically high 0.70-1.30 [facility] Comment on above: Performed By: #### B MP ####[facility] Vtahwgynxa69[address] [place] [address]Dr. Villa Yanes EGFR-AF MACEDONIAN 60 mL/min/1.73m2 Normal >=[address] [facility] Comment on above: Performed By: #### B MP ####[facility] Qvkbchofwm[address] [place], [place] [address]Dr. Villa Yanes EGFR-NON AF MACEDONIAN 49 mL/min/1.73m2 Critically low >=60 [facility] Comment on above: Performed By: #### B MP ####[facility] Edrwkiacoy40[address] [place] [address]Dr. Villa Yanes Glucose [Mass/Vol] 229 mg/dL Critically high 74-106 T [facility] Comment on above: Performed By: #### B MP ####[facility] Eqlydbhmox6379 [place] [address]Dr. Villa Yanes Potassium [Moles/Vol] 4.2 mmol/L Normal 3.5-5.1 [facility] Comment on above: Performed By: #### B MP ####[facility] Nfhmxyvbek8[address] [place] [address]Dr. Villa Yanes Sodium [Moles/Vol] 140 mmol/L Normal 136-145 [facility] Comment on above: Performed By: #### B MP ####[facility] Chrdqvnpsj115[address] [place], [place] [address]Dr. Villa Yanes Urea nitrogen [Mass/Vol] 47.0 mg/dL Critically high 7.0-18.0 [facility] Comment on above: Performed By: #### B MP ####[facility] Ffpqipnklv5727[address] [place], [place] [address]Dr. Villa Yanes Urea nitrogen/Creatinine [Mass ratio] 33.8 mg/mg Normal [facility] Comment on above: Performed By: #### B MP ####[facility] Sqnnaojmsv814[address] [place], [place] [address]Dr. Villa Yanes CBC AUTO DIFFon 06-28-2022 BASO # 0.0 103/ul Normal 0.0-0.1 [facility] Comment on above: Performed By: #### C BC ####[facility] Njgzwgsxsw14[address] [place], [place] [address]Dr. Villa Joaquín Basophils/100 WBC (Bld) 0.1 % Critically low 0.2-2.0 [facility] Comment on above: Performed By: #### C BC ####[facility] Ywroaexddl9[address] [place], [place] [address]Dr. Villa Yanes EO # 0.0 103/ul Normal 0.0-0.7 [facility] Comment on above: Performed By: #### C BC ####[facility] Xekcycitdp309[address] [place], [place] [address]Dr. Villa Joaquín Eosinophils/100 WBC (Bld) 0.1 % Critically low 0.9-7.0 [facility] Comment on above: Performed By: #### C BC ####[facility] Omwxvvhrwy613[address] [place], [place] [address]Dr. Villa Yanes Erythrocyte distribution width (RBC) [Ratio] 12.6 % Normal 11.0-15.0 [facility] Comment on above: Performed By: #### C BC ####[facility] Wnhjlkyfni[address] [place] [address]Dr. Villa Yanes Hematocrit (Bld) [Volume fraction] 33.4 % Critically low 42.0-54.0 [facility] Comment on above: Performed By: #### C BC ####[facility] Yowphuiobo5[address] [place] [address]Dr. Villa Yanes Hemoglobin (Bld) [Mass/Vol] 10.5 g/dL Critically low 14.0-18.0 [facility] Comment on above: Performed By: #### C BC ####[facility] Omvebnyahn67[address] [place] [address]Dr. Villa Yanes IG # 0.12 10e3/ul Critically high 0.00-0.03 [facility] Comment on above: Performed By: #### C BC ####[facility] Abcizbehnm299[address] [place], [place] [address]Dr. Villa Yanes IG % 0.9 % Critically high 0.0-0.5 [facility] Comment on above: Performed By: #### C BC ####[facility] Exfflhhhsf[address] [place] [address]Dr. Villa Yanes LYMPH # 0.5 103/ul Critically low 1.2-3.8 [facility] Comment on above: Performed By: #### C BC ####[facility] Mwgkqqdmqs0652 [place] [address]Dr. Villa Yanes Lymphocytes/100 WBC (Bld) 3.6 % Critically low 20.5-60.0 [facility] Comment on above: Performed By: #### C BC ####[facility] Qqjvicdyrm[address] [place] [address]Dr. Villa Yanes MANUAL DIFF REQ NO Normal [facility] Comment on above: Performed By: #### C BC ####[facility] Toqweigpxg8[address] [place], [place] [address]Dr. Villa Yanes MCH (RBC) [Entitic mass] 31.4 pg Normal 25.9-34.0 [facility] Comment on above: Performed By: #### C BC ####[facility] Nksmkrcndu[address] [place] [id number]. Villa Yanes MCHC (RBC) [Mass/Vol] 31.4 g/dL Normal 29.9-35.2 [facility] Comment on above: Performed By: #### C BC ####[facility] Avqniomftq01[address] [place] [id number]. Villa Yanes MCV (RBC) [Entitic vol] 100.0 fL Critically high 80.0-94.0 [facility] Comment on above: Performed By: #### C BC ####[facility] Vneubqlhzz[address] [place], [place] [address]Dr. Villa Joaquín MONO # 0.2 103/ul Critically low 0.3-0.8 [facility] Comment on above: Performed By: #### C BC ####[facility] Hmzyjrkine813[address] [place], [place] [address]Dr. Villa Yanes Monocytes/100 WBC (Bld) 1.6 % Critically low 1.7-12.0 [facility] Comment on above: Performed By: #### C BC ####[facility] Roitrbbbau[address] [place], [place] [address]Dr. Villa Yanes NEUT # 12.5 103/ul Critically high 1.4-6.5 [facility] Comment on above: Performed By: #### C BC ####[facility] Hshxauupez[address] [place], [place] [address]Dr. Villa Yanes Neutrophils/100 WBC (Bld) 93.7 % Critically high 43.0-75.0 [facility] Comment on above: Performed By: #### C BC ####[facility] Ozqjfjthdb08[address] [place], [place] [address]Dr. Villa Yanes Platelet mean volume (Bld) [Entitic vol] 10.0 fL Normal 9.5-13.5 [facility] Comment on above: Performed By: #### C BC ####[facility] Baircadigi[address] [place], [place] [address]Dr. Villa Yanes PLT 242 103/ul Normal 150-450 [facility] Comment on above: Performed By: #### C BC ####[facility] Etlajvazkq[address] [place] [id number]. Brooklynkaren Yanes RBC 3.34 106/ul Critically low 4.70-6.10 [facility] Comment on above: Performed By: #### C BC ####[facility] Acjmzajjmr[address] [place] [id number]. Brooklynkaren Joaquín WBC 13.4 103/ul Critically high 4.0-11.0 [facility] Comment on above: Performed By: #### C BC ####[facility] Vvdntdqrdh35[address] [place] [address]Dr. Villa Yanes POINT OF CARE GLUCOSEon Glucose [Mass/Vol] 238 mg/dL Critically high 74-106 [facility] Comment on above: Performed By: #### P OCGLUC ####[facility] Snmkkpfgkq7752 [place] [address]Dr. Villa Yanes Glucose [Mass/Vol] 202 mg/dL Critically high 74-106 [facility] Comment on above: Performed By: #### P OCGLUC ####[facility] Jlafqmlpir79[address] [place] [address]Dr. Villa Yanes Glucose [Mass/Vol] 168 mg/dL Critically high 74-106 [facility] Comment on above: Performed By: #### P OCGLUC ####[facility] Rhzghwyskz5938 [place] [address]Dr. Villa Yanes PROF CHEM 8 (BAS METB)on Anion gap [Moles/Vol] 11.5 mmol/L Normal [facility] Comment on above: Performed By: #### B MP ####[facility] Hnpbbsdscj110[address] [place] [address]Dr. Villa Yanes Calcium [Mass/Vol] 8.9 mg/dL Normal 8.5-10.1 [facility] Comment on above: Performed By: #### B MP ####[facility] Jfrzeieegu4[address] [place] [address]Dr. Villa Yanes Chloride [Moles/Vol] 106 mmol/L Normal 98-107 [facility] Comment on above: Performed By: #### B MP ####[facility] Rdngpzlmjc6715 [place] [id number]. Villa Yanes CO2 [Moles/Vol] 25.3 mmol/L Normal 21.0-32.0 [facility] Comment on above: Performed By: #### B MP ####[facility] Jadgniwjrc8306 [place] [id number]. Villa Yanes Creatinine [Mass/Vol] 1.39 mg/dL Critically high 0.70-1.30 [facility] Comment on above: Performed By: #### B MP ####[facility] Cudldakhvz67[address] [place] [id number]. Brooklynkaren Joaquín EGFR-AF MACEDONIAN 60 mL/min/1.73m2 Normal >=[address] [facility] Comment on above: Performed By: #### B MP ####[facility] Dsjmddzlgw10[address] [place] [address]Dr. [place]karen Joaquín EGFR-NON AF MACEDONIAN 49 mL/min/1.73m2 Critically low >=60 [facility] Comment on above: Performed By: #### B MP ####[facility] Hhzhonvflq[address] [place] [address]Dr. Villa Joaquín Glucose [Mass/Vol] 191 mg/dL Critically high 74-106 [facility] Comment on above: Performed By: #### B MP ####[facility] Ecrcyruzlb6676 [place] [address]Dr. Villa Yanes Potassium [Moles/Vol] 4.8 mmol/L Normal 3.5-5.1 [facility] Comment on above: Performed By: #### B MP ####[facility] Mafzjiidmx[address] [place], [place] [address]Dr. Villa Yanes Sodium [Moles/Vol] 138 mmol/L Normal 136-145 [facility] Comment on above: Performed By: #### B MP ####[facility] Xtzucdewyv2323 [place] [address]Dr. Villa Yanes Urea nitrogen [Mass/Vol] 48.0 mg/dL Critically high 7.0-18.0 [facility] Comment on above: Performed By: #### B MP ####[facility] Qhkxqwxkkl[address] [place], [place] [address]Dr. Villa Yanes Urea nitrogen/Creatinine [Mass ratio] 34.5 mg/mg Normal [facility] Comment on above: Performed By: #### B MP ####[facility] Soxliaqjpz165[address] [place], [place] [address]Dr. Villa Yanes XR CHEST 2 Von 06-28-2022 XR CHEST 2 V Normal [facility] CBC AUTO DIFFon 06-27-2022 BASO # 0.0 103/ul Normal 0.0-0.1 [facility] Comment on above: Performed By: #### C BC ####[facility] V[address]wofjwp[address] [place], [place] [address]Dr. Villa Yanes Basophils/100 WBC (Bld) 0.2 % Normal 0.2-2.0 [facility] Comment on above: Performed By: #### C BC ####[facility] Lhktkiryua284[address] [place], [place] [address]Dr. Villa Yanes EO # 0.0 103/ul Normal 0.0-0.7 [facility] Comment on above: Performed By: #### C BC ####[facility] Cmeqbhrumz[address] [place], [place] [address]Dr. Villa Yanes Eosinophils/100 WBC (Bld) 0.0 % Critically low 0.9-7.0 [facility] Comment on above: Performed By: #### C BC ####[facility] Yoqpskeaim[address] [place], [place] [address]Dr. Villa Yanes Erythrocyte distribution width (RBC) [Ratio] 12.6 % Normal 11.0-15.0 [facility] Comment on above: Performed By: #### C BC ####[facility] Xeuqtwcdyy[address] [place], [place] [address]Dr. Villa Yanes Hematocrit (Bld) [Volume fraction] 33.9 % Critically low 42.0-54.0 [facility] Comment on above: Performed By: #### C BC ####[facility] Ibywtqacvi[address] [place] [address]Dr. Villa Yanes Hemoglobin (Bld) [Mass/Vol] 10.7 g/dL Critically low 14.0-18.0 [facility] Comment on above: Performed By: #### C BC ####[facility] Zjveyuboka[address] [place] [id number]. Villa Yanes IG # 0.08 10e3/ul Critically high 0.00-0.03 [facility] Comment on above: Performed By: #### C BC ####[facility] Ynpmhicgsj5[address] [place] [address]Dr. Villa Yanes IG % 1.3 % Critically high 0.0-0.5 [facility] Comment on above: Performed By: #### C BC ####[facility] Njuugrvmsh[address] [place] [address]Dr. Villa Yanes LYMPH # 0.3 103/ul Critically low 1.2-3.8 [facility] Comment on above: Performed By: #### C BC ####[facility] Npdtupqnsb[address] [place] [address]Dr. Villa Yanes Lymphocytes/100 WBC (Bld) 5.1 % Critically low 20.5-60.0 [facility] Comment on above: Performed By: #### C BC ####[facility] Oczwxprsil[address] [place] [address]Dr. Villa Yanes MANUAL DIFF REQ NO Normal [facility] Comment on above: Performed By: #### C BC ####[facility] Pfpeflixiq5[address] [place] [address]Dr. Villa Yanes MCH (RBC) [Entitic mass] 31.4 pg Normal 25.9-34.0 [facility] Comment on above: Performed By: #### C BC ####[facility] Tftrjxbywo33[address] [place] [address]Dr. Villa Yanes MCHC (RBC) [Mass/Vol] 31.6 g/dL Normal 29.9-35.2 [facility] Comment on above: Performed By: #### C BC ####[facility] Ukquqrenqo53[address] [place] [id number]. Villa Yanes MCV (RBC) [Entitic vol] 99.4 fL Critically high 80.0-94.0 [facility] Comment on above: Performed By: #### C BC ####[facility] Ltyncubknr98[address] [place] [address]Dr. Villa Yanes MONO # 0.0 103/ul Critically low 0.3-0.8 [facility] Comment on above: Performed By: #### C BC ####[facility] Rfjtsasrhz0172 [place] [address]Dr. Villa Yanes Monocytes/100 WBC (Bld) 0.7 % Critically low 1.7-12.0 [facility] Comment on above: Performed By: #### C BC ####[facility] Eqydygcpwe[address] [place], [place] [address]Dr. Villa Yanes NEUT # 5.6 103/ul Normal 1.4-6.5 [facility] Comment on above: Performed By: #### C BC ####[facility] Kdjbfpznug98[address] [place], [place] [address]Dr. Villa Yanes Neutrophils/100 WBC (Bld) 92.7 % Critically high 43.0-75.0 [facility] Comment on above: Performed By: #### C BC ####[facility] Xiweciqdpd9[address] [place], [place] [address]Dr. Villa Yanes Platelet mean volume (Bld) [Entitic vol] 9.7 fL Normal 9.5-13.5 [facility] Comment on above: Performed By: #### C BC ####[facility] Mlgzafczoe[address] [place], [place] [id number]. Villa Joaquín PLT 221 103/ul Normal 150-450 [facility] Comment on above: Performed By: #### C BC ####[facility] Lbzewucczx23[address] [place], [place] [id number]. Brooklynkaren Joaquín RBC 3.41 106/ul Critically low 4.70-6.10 [facility] Comment on above: Performed By: #### C BC ####[facility] Ddexbwbeqf3228 [place] [address]Dr. Villa Yanes WBC 6.1 103/ul Normal 4.0-11.0 [facility] Comment on above: Performed By: #### C BC ####[facility] Wrnwhdnich124[address] [place], [place] [address]Dr. Villa Joaquín POINT OF CARE GLUCOSEon Glucose [Mass/Vol] 236 mg/dL Critically high 74-106 [facility] Comment on above: Performed By: #### P OCGLUC ####[facility] Cfrqjybuoc9[address] [place], [place] [address]Dr. Villa Yanes Glucose [Mass/Vol] 156 mg/dL Critically high 74-106 [facility] Comment on above: Performed By: #### P OCGLUC ####[facility] Atyuthtznx[address] [place], [place] [address]Dr. Villa Yanes Glucose [Mass/Vol] 229 mg/dL Critically high -106 [facility] Comment on above: Performed By: #### P OCGLUC ####[facility] Mmwjgwrfkz53[address] [place], [place] [address]Dr. Brooklynkaren Yanes PROF CHEM 8 (BAS METB)on Anion gap [Moles/Vol] 12.7 mmol/L Normal [facility] Comment on above: Performed By: #### B MP ####[facility] Msdmqpxmfp[address] [place], [place] [address]Dr. Villa Joaquín Calcium [Mass/Vol] 8.4 mg/dL Critically low 8.5-10.1 [facility] Comment on above: Performed By: #### B MP ####[facility] Jyrqwnnnsw3401[address] [place], [place] [address]Dr. Villa Joaquín Chloride [Moles/Vol] 103 mmol/L Normal 98-107 [facility] Comment on above: Performed By: #### B MP ####[facility] Yqfqchegzu8[address] [place], [place] [address]Dr. Villa Yanes CO2 [Moles/Vol] 24.1 mmol/L Normal 21.0-32.0 [facility] Comment on above: Performed By: #### B MP ####[facility] Maofkpmtet8[address] [place] [id number]. Villa Yanes Creatinine [Mass/Vol] 1.34 mg/dL Critically high 0.70-1.30 [facility] Comment on above: Performed By: #### B MP ####[facility] Nsuszivkcx8906 [place] [id number]. Villa Joaquín EGFR-AF MACEDONIAN >60 Normal >=60 [facility] Comment on above: Performed By: #### B MP ####[facility] Smpsccaxaq8923 [place] [address]Dr. Villa Joaquín EGFR-NON AF MACEDONIAN 51 mL/min/1.73m2 Critically low >=60 [facility] Comment on above: Performed By: #### B MP ####[facility] Cjnccjfmju9[address] [place], [place] [address]Dr. Villa Yanes Glucose [Mass/Vol] 249 mg/dL Critically high 74-106 T [facility] Comment on above: Performed By: #### B MP ####[facility] Yjngtxtwvi8736 [place] [address]Dr. Villa Yanes Potassium [Moles/Vol] 4.8 mmol/L Normal 3.5-5.1 [facility] Comment on above: Performed By: #### B MP ####[facility] Szflsurtrz[address] [place], [place] [address]Dr. Villa Yanes Sodium [Moles/Vol] 135 mmol/L Critically low 136-[address] [facility] Comment on above: Performed By: #### B MP ####[facility] Ywlrvfhwwr8[address] [place] [address]Dr. Villa Yanes Urea nitrogen [Mass/Vol] 37.0 mg/dL Critically high 7.0-18.0 [facility] Comment on above: Performed By: #### B MP ####[facility] Mqlhsyfdzn9[address] [place], [place] [address]Dr. Villa Yanes Urea nitrogen/Creatinine [Mass ratio] 27.6 mg/mg Normal [facility] Comment on above: Performed By: #### B MP ####[facility] Pxtyiarxhq09[address] [place] [address]Dr. Villa Joaquín T3, TOTAL (TRIIODOTHYRONINE) on 06-27-2022 T3, TOTAL 70 ng/dL Critically low 71-180 [facility] Comment on above: Performed By: #### T 3TOTAL ####[facility] Witpmxuxau[address] [place] [address]Dr. Villa Joaquín CBC AUTO DIFFon 06-26-2022 BASO # 0.0 103/ul Normal 0.0-0.1 [facility] Comment on above: Performed By: #### C BC ####[facility] Anezuursfd[address] [place], [place] [address]Dr. Villa Yanes Basophils/100 WBC (Bld) 0.3 % Normal 0.2-2.0 [facility] Comment on above: Performed By: #### C BC ####[facility] Sjfxxwokyq70[address] [place], [place] [address]Dr. Villa Yanes EO # 0.1 103/ul Normal 0.0-0.7 [facility] Comment on above: Performed By: #### C BC ####[facility] Axtqlzoohc[address] [place], [place] [address]Dr. Brooklynkaren Yanes Eosinophils/100 WBC (Bld) 0.4 % Critically low 0.9-7.0 [facility] Comment on above: Performed By: #### C BC ####[facility] Jlmgncuqlt[address] [place], [place] [address]Dr. Brooklynkaren Joaquín Erythrocyte distribution width (RBC) [Ratio] 12.3 % Normal 11.0-15.0 [facility] Comment on above: Performed By: #### C BC ####[facility] Yotbhroonp[address] [place], [place] [address]Dr. Villa Yanes Hematocrit (Bld) [Volume fraction] 34.6 % Critically low 42.0-54.0 [facility] Comment on above: Performed By: #### C BC ####[facility] Yolcxvjmqo[address] [place], [place] [address]Dr. Villa Yanes Hemoglobin (Bld) [Mass/Vol] 11.6 g/dL Critically low 14.0-18.0 [facility] Comment on above: Performed By: #### C BC ####[facility] Nrjzhbomre[address] [place] [address]DrBrenden Yanes IG # 0.13 10e3/ul Critically high 0.00-0.03 [facility] Comment on above: Performed By: #### C BC ####[facility] Dwdgljgorb7392 [place] [address]DrBrenden Yanes IG % 1.0 % Critically high 0.0-0.5 [facility] Comment on above: Performed By: #### C BC ####[facility] Awwpvoxxec3032 [place] [address]DrBrenden Yanes LYMPH # 1.6 103/ul Normal 1.2-3.8 [facility] Comment on above: Performed By: #### C BC ####[facility] Vbaookqofr3809 [place] [address]DrBrenden Yanes Lymphocytes/100 WBC (Bld) 11.9 % Critically low 20.5-60.0 [facility] Comment on above: Performed By: #### C BC ####[facility] Wmjrjgbfof45[address] [place] [address]DrBrenden Yanes MANUAL DIFF REQ NO Normal [facility] Comment on above: Performed By: #### C BC ####[facility] Rmrqnoqfge5625 [place] [address]DrBrenden Yanes MCH (RBC) [Entitic mass] 32.3 pg Normal 25.9-34.0 [facility] Comment on above: Performed By: #### C BC ####[facility] Rgoqdvsxuv82[address] [place] [id number] Yanes MCHC (RBC) [Mass/Vol] 33.5 g/dL Normal 29.9-35.2 [facility] Comment on above: Performed By: #### C BC ####[facility] Pepakmzbyy86[address] [place] [id number] Yanes MCV (RBC) [Entitic vol] 96.4 fL Critically high 80.0-94.0 [facility] Comment on above: Performed By: #### C BC ####[facility] Jstwqmwpxa68[address] [place] [address]Dr. Villa Yanes MONO # 0.7 103/ul Normal 0.3-0.8 [facility] Comment on above: Performed By: #### C BC ####[facility] Mpnqbkwkyb34[address] [place] [address]Dr. Villa Joaquín Monocytes/100 WBC (Bld) 5.6 % Normal 1.7-12.0 [facility] Comment on above: Performed By: #### C BC ####[facility] Fpxdrsymqt5795 [place] [address]Dr. Villa Yanes NEUT # 10.5 103/ul Critically high 1.4-6.5 [facility] Comment on above: Performed By: #### C BC ####[facility] Lxbxjvuosj55[address] [place] [address]Dr. Villa Yanes Neutrophils/100 WBC (Bld) 80.8 % Critically high 43.0-75.0 [facility] Comment on above: Performed By: #### C BC ####[facility] Uvoxlqvfsm08[address] [place] [address]Dr. Villa Joaquín Platelet mean volume (Bld) [Entitic vol] 9.1 fL Critically low 9.5-13.5 [facility] Comment on above: Performed By: #### C BC ####[facility] Sxmxrbmnhs8[address] [place] [address]Dr. Villa Joaquín PLT 266 103/ul Normal 150-450 [facility] Comment on above: Performed By: #### C BC ####[facility] Hiqxnuybog4[address] [place] [address]Dr. Villa Yanes RBC 3.59 106/ul Critically low 4.70-6.10 [facility] Comment on above: Performed By: #### C BC ####[facility] Hfwzngepvs7759 [place] [address]Dr. Villa Yanes WBC 13.1 103/ul Critically high 4.0-11.0 [facility] Comment on above: Performed By: #### C BC ####[facility] Acpidvwbmn02[address] [place] [address]Dr. Villa Yanes CULTURE URINEon 06-26-2022 CULTURE URINE Culture Observations : LIGHT GROWTH OF MIXED SKIN ARACELI. NO POTENTIAL PATHOGENS SEEN. Normal [facility] Comment on above: Performed By: #### U RCX ####[facility] Oubplhvxwa[address] [place], [place] [address]Dr. Villa Joaquín LACTATE/LACTIC ACIDon 2022 Lactate [Moles/Vol] 1.0 mmol/L Normal 0.4-1.9 [facility] Comment on above: Performed By: #### L ACT ####[facility] Dcomkdbnnz650[address] [place], [place] [address]Dr. Villa Yanes POINT OF CARE GLUCOSEon Glucose [Mass/Vol] 242 mg/dL Critically high 74-106 [facility] Comment on above: Performed By: #### P OCGLUC ####[facility] Swkdtpqssv88[address] [place], [place] [address]Dr. Villa Yanes Glucose [Mass/Vol] 140 mg/dL Critically high 74-106 [facility] Comment on above: Performed By: #### P OCGLUC ####[facility] Kubepttjyp[address] [place], [place] [address]Dr. Villa Yanes PROF 14(COMP METB)on 023 Albumin [Mass/Vol] 3.0 g/dL Critically low 3.4-5.0 [facility] Comment on above: Performed By: #### C MP, T4, TSH ####[facility] Ippjyebyqy87[address] [place] [address]Dr. Villa Yanes Albumin/Globulin [Mass ratio] 0.9 {ratio} Normal [facility] Comment on above: Performed By: #### C MP, T4, TSH ####[facility] Uhqejoryqu2218 [place] [address]Dr. Villa Yanes ALP [Catalytic activity/Vol] 175 U/L Critically high 46-116 [facility] Comment on above: Performed By: #### C MP, T4, TSH ####[facility] Fpbtshbtlp6143 [place] [address]Dr. Villa Yanes ALT [Catalytic activity/Vol] 12 U/L Critically low 16-63 [facility] Comment on above: Performed By: #### C MP, T4, TSH ####[facility] Memrwgfvcb5029 [place] [address]Dr. Villa Yanes Anion gap [Moles/Vol] 11.1 mmol/L Normal Th [facility] Comment on above: Performed By: #### C MP, T4, TSH ####[facility] Uaklzjlohd2226 [place] [address]Dr. Villa Yanes AST [Catalytic activity/Vol] 12 U/L Critically low 15-37 [facility] Comment on above: Performed By: #### C MP, T4, TSH ####[facility] Eyexlgindz065[address] [place], [place] [address]Dr. Villa Yanes Bilirubin [Mass/Vol] 0.5 mg/dL Normal 0.2-1.0 [facility] Comment on above: Performed By: #### C MP, T4, TSH ####[facility] Jtmpmmporm25[address] [place], [place] [address]Dr. Villa Yanes Calcium [Mass/Vol] 9.0 mg/dL Normal 8.5-10.1 [facility] Comment on above: Performed By: #### C MP, T4, TSH ####[facility] Lgxrgfjxxy[address] [place], [place] [address]Dr. Villa Yanes Chloride [Moles/Vol] 104 mmol/L Normal 98-107 [facility] Comment on above: Performed By: #### C MP, T4, TSH ####[facility] Nttmkhgllp[address] [place], [place] [address]Dr. Villa Yanes CO2 [Moles/Vol] 28.2 mmol/L Normal 21.0-32.0 [facility] Comment on above: Performed By: #### C MP, T4, TSH ####[facility] Nlpzkwzkzy854[address] [place], [place] [address]Dr. Villa Yanes Creatinine [Mass/Vol] 1.23 mg/dL Normal 0.70-1.30 [facility] Comment on above: Performed By: #### C MP, T4, TSH ####[facility] Vsikxogocn6[address] [place] [address]Dr. Villa Yanes EGFR-AF MACEDONIAN >60 Normal >=60 [facility] Comment on above: Performed By: #### C MP, T4, TSH ####[facility] Gamnzasfra9734 [place] [address]Dr. Villa Yanes EGFR-NON AF MACEDONIAN 57 mL/min/1.73m2 Critically low >=60 [facility] Comment on above: Performed By: #### C MP, T4, TSH ####[facility] Gbpcpqcjzb5854 [place] [address]Dr. Villa Yanes Globulin (S) [Mass/Vol] 3.3 g/dL Normal [facility] Comment on above: Performed By: #### C MP, T4, TSH ####[facility] Bnfbnhgmia6570 [place] [address]Dr. Villa Yanes Glucose [Mass/Vol] 122 mg/dL Critically high 74-106 [facility] Comment on above: Performed By: #### C MP, T4, TSH ####[facility] Pcixdimylk9591 [place] [address]Dr. Villa Yanes Potassium [Moles/Vol] 4.3 mmol/L Normal 3.5-5.1 [facility] Comment on above: Performed By: #### C MP, T4, TSH ####[facility] Cwlameszyv9616 [place] [address]Dr. Villa Yanes Protein [Mass/Vol] 6.3 g/dL Critically low 6.4-8.[address] [facility] Comment on above: Performed By: #### C MP, T4, TSH ####[facility] Wscptpngjl9182 [place] [address]Dr. Villa Yanes Sodium [Moles/Vol] 139 mmol/L Normal 136-145 [facility] Comment on above: Performed By: #### C MP, T4, TSH ####[facility] Zublnajwaq0611 [place] [address]Dr. Villa Yanes Urea nitrogen [Mass/Vol] 29.0 mg/dL Critically high 7.0-18.0 [facility] Comment on above: Performed By: #### C MP, T4, TSH ####[facility] Cgbaawqjbs3137 [place] [address]Dr. Villa Yanes Urea nitrogen/Creatinine [Mass ratio] 23.6 mg/mg Normal [facility] Comment on above: Performed By: #### C MP, T4, TSH ####[facility] Yzpnluobzn2759 [place] [address]Dr. Villa Yanes T4on 06-26-2022 T4 [Mass/Vol] 5.80 ug/dL Normal 4.50-12.10 [facility] Comment on above: Performed By: #### C MP, T4, TSH ####[facility] Lmqzaejyyh500[address] [place] [address]Dr. Villa Yanes TSHon 06-26-2022 TSH 0.281 uIU/mL Critically low 0.358-3.740 [facility] Comment on above: Performed By: #### C MP, T4, TSH ####[facility] Rkvcponyol2355 [place] [address]Dr. Villa Yanes UA RANDOM W/MICROSCOPICon BACTERIA TRACE Abnormal NONE SEEN [facility] Comment on above: Performed By: #### U AMIC ####[facility] Fwxgbaafkx3124 [place] [address]Dr. Villa Yanes Bilirubin Ql (U) Negative Normal NEGATIVE [facility] Comment on above: Performed By: #### U AMIC ####[facility] Fpldhndgmf0815 [place] [address]Dr. Villa Yanes CAST NONE SEEN Normal NONE SEEN [facility] Comment on above: Performed By: #### U AMIC ####[facility] Bygwryockr04[address] [place] [address]Dr. Villa Yanes Clarity (U) CLEAR Normal CLEAR [facility] Comment on above: Performed By: #### U AMIC ####[facility] Pnlirsqvgx6909 [place] [id number]. [place]karen Yanes Color (U) YELLOW Normal YELLOW [facility] Comment on above: Performed By: #### U AMIC ####[facility] Ifqyvcdevr2777 [place] [id number]. [place]karen Yanes Crystals LM Nom (Urine sed) NONE SEEN Normal NONE SEEN [facility] Comment on above: Performed By: #### U AMIC ####[facility] Khalovezil[address] [place], [place] [address]Dr. Villa Joaquín Epithelial cells LM Ql (Urine sed) RARE Normal NONE SEEN /RARE [facility] Comment on above: Performed By: #### U AMIC ####[facility] Sodhonkcuc017[address] [place], [place] [address]Dr. Villa Yanes Glucose Ql (U) Negative Normal NEGATIVE [facility] Comment on above: Performed By: #### U AMIC ####[facility] Tkykbmaivy449[address] [place], [place] [address]Dr. Villa Yanes Hemoglobin Ql (U) Negative Normal NEGATIVE [facility] Comment on above: Performed By: #### U AMIC ####[facility] Amwpcymdvh294[address] [place], [place] [address]Dr. Villa Yanes Ketones Ql (U) Negative Normal NEGATIVE [facility] Comment on above: Performed By: #### U AMIC ####[facility] Muiievsjrb[address] [place], [place] [address]Dr. Yilan Yanes LEUKOCYTES Negative Normal NEGATIVE [facility] Comment on above: Performed By: #### U AMIC ####[facility] Behnynrciv66[address] [place], [place] [address]Dr. Yilan Yanes MUCOUS NONE SEEN Normal NONE SEEN [facility] Comment on above: Performed By: #### U AMIC ####[facility] Owtldxsyjc014[address] [place], [place] [address]Dr. Yilan Yanes Nitrite Ql (U) Negative Normal NEGATIVE [facility] Comment on above: Performed By: #### U AMIC ####[facility] Swwsyyorhc112[address] [place], [place] [address]Dr. Yilan Yanes pH (U) 5.5 [pH] Normal 5-9 [facility] Comment on above: Performed By: #### U AMIC ####[facility] Iinznatdpr1755 [place] [address]Dr. Villa Yanes RBC 0-2 Normal 0-2 [facility] Comment on above: Performed By: #### U AMIC ####[facility] Bksvmxlnfs5466 [place] [address]Dr. Villa Yanes SPEC GRAVITY 1.025 Normal 1.005-<=1.0 25 [facility] Comment on above: Performed By: #### U AMIC ####[facility] Avdqytiipe808[address] [place], [place] [address]Dr. Villa Yanes UA PROTEIN 100 mg/dl Abnormal NEGATIVE/ TRACE [facility] Comment on above: Performed By: #### U AMIC ####[facility] Idimmgxgov[address] [place], [place] [address]Dr. Villa Yanes Urobilinogen Qn (U) 0.2 {Mackenzie'U}/dL Normal 0.2 - 1. 0 [facility] Comment on above: Performed By: #### U AMIC ####[facility] Tzhrphcjbp[address] [place], [place] [address]Dr. Villa Yanes WBC NONE SEEN Normal NONE SEEN [facility] Comment on above: Performed By: #### U AMIC ####[facility] Lwuvlhddzk[address] [place], [place] [address]Dr. Villa Yanes MRI LSPINE WO CONon 06-10-19 MRI LSPINE WO CON Normal [facility] CBC AUTO DIFFon 06-06-2022 BASO # 0.0 103/ul Normal 0.0-0.1 [facility] Comment on above: Performed By: #### C BC ####[facility] Jrikeipahb[address] [place], [place] [address]Dr. [place]karen Yanes Basophils/100 WBC (Bld) 0.4 % Normal 0.2-2.0 [facility] Comment on above: Performed By: #### C BC ####[facility] Fhsdqrgshb6206 [place] [address]Dr. Villa Yanes EO # 0.1 103/ul Normal 0.0-0.7 [facility] Comment on above: Performed By: #### C BC ####[facility] Owbqjgptsa[address] [place], [place] [address]Dr. Villa Yanes Eosinophils/100 WBC (Bld) 0.6 % Critically low 0.9-7.0 [facility] Comment on above: Performed By: #### C BC ####[facility] Xvoomjnilu[address] [place], [place] [address]Dr. Villa Yanes Erythrocyte distribution width (RBC) [Ratio] 12.6 % Normal 11.0-15.0 The [facility] Comment on above: Performed By: #### C BC ####[facility] Enzoxighkw89[address] [place], [place] [address]Dr. Villa Yanes Hematocrit (Bld) [Volume fraction] 34.1 % Critically low 42.0-54.0 The [facility] Comment on above: Performed By: #### C BC ####[facility] Atsmjxeuqa[address] [place], [place] [address]Dr. Villa Yanes Hemoglobin (Bld) [Mass/Vol] 11.3 g/dL Critically low 14.0-18.0 The [facility] Comment on above: Performed By: #### C BC ####[facility] Whbixltnzf199[address] [place], [place] [address]Dr. Villa Yanes IG # 0.14 10e3/ul Critically high 0.00-0.03 The [facility] Comment on above: Performed By: #### C BC ####[facility] Mnifhgbypg7[address] [place], [place] [address]Dr. Villa Yanes IG % 1.2 % Critically high 0.0-0.5 The [facility] Comment on above: Performed By: #### C BC ####[facility] Ychfnltapu72[address] [place], [place] [address]Dr. Brooklynkaren Yanes LYMPH # 1.1 103/ul Critically low 1.2-3.8 The [facility] Comment on above: Performed By: #### C BC ####[facility] Fnhvjzyjnt3272 [place] [id number]. Villa Yanes Lymphocytes/100 WBC (Bld) 9.8 % Critically low 20.5-60.0 The [facility] Comment on above: Performed By: #### C BC ####[facility] Xlmmoxbirt0461 [place] [id number]. Villa Joaquín MANUAL DIFF REQ NO Normal The [facility] Comment on above: Performed By: #### C BC ####[facility] Fsynasdrns8580 [place] [address]Dr. Villa Joaquín MCH (RBC) [Entitic mass] 31.9 pg Normal 25.9-34.0 The [facility] Comment on above: Performed By: #### C BC ####[facility] Uxwbxryfyh6[address] [place] [address]Dr. Villa Joaquín MCHC (RBC) [Mass/Vol] 33.1 g/dL Normal 29.9-35.2 The [facility] Comment on above: Performed By: #### C BC ####[facility] Czahnjqptm8479 [place] [address]Dr. Villa Joaquín MCV (RBC) [Entitic vol] 96.3 fL Critically high 80.0-94.0 The [facility] Comment on above: Performed By: #### C BC ####[facility] Uczjuzteix1237 [place] [address]Dr. Brooklynkaren Joaquín MONO # 0.8 103/ul Normal 0.3-0.8 The [facility] Comment on above: Performed By: #### C BC ####[facility] Kbxvrnkigf[address] [place] [address]Dr. Brooklynkaren Yanes Monocytes/100 WBC (Bld) 6.7 % Normal 1.7-12.0 The [facility] Comment on above: Performed By: #### C BC ####[facility] Fhqmxzxoui9455 [place] [address]Dr. Villa Yanes NEUT # 9.2 103/ul Critically high 1.4-6.5 The [facility] Comment on above: Performed By: #### C BC ####[facility] Khpuemxkyg4071 [place] [id number]. Villa Yanes Neutrophils/100 WBC (Bld) 81.3 % Critically high 43.0-75.0 The [facility] Comment on above: Performed By: #### C BC ####[facility] Mygzvmhnmj3878 [place] [address]Dr. Villa Yanes Platelet mean volume (Bld) [Entitic vol] 9.2 fL Critically low 9.5-13.5 The [facility] Comment on above: Performed By: #### C BC ####[facility] Rpyaguldcc4808 [place] [id number]. Villa Joaquín PLT 255 103/ul Normal 150-450 The [facility] Comment on above: Performed By: #### C BC ####[facility] Mppzgqhajv0342 [place] [address]Dr. Villa Joaquín RBC 3.54 106/ul Critically low 4.70-6.10 [facility] Comment on above: Performed By: #### C BC ####[facility] Iqvzbpvhrz33[address] [place] [id number]. Villa Joaquín WBC 11.3 103/ul Critically high 4.0-11.0 The [facility] Comment on above: Performed By: #### C BC ####[facility] Qnlslufxlb6916 [place] [id number]. Villa Yanes ER URINE PROFILEon 3 Bilirubin Ql (U) Negative Normal NEGATIVE The [facility] Comment on above: Performed By: #### ANGELIA CAMARENARO ####[facility] Kgvyyqykpt23[address] [place] [id number]. Brooklynkaren Yanes Clarity (U) CLEAR Normal CLEAR The [facility] Comment on above: Performed By: #### ANGELIA CAMARENARO ####[facility] Rtvgwxpwoe2812 [place] [id number]. Villa Yanes Color (U) LT. YELLOW Normal YELLOW The [facility] Comment on above: Performed By: #### ANGELIA CAMARENARO ####[facility] Lkalhlaoje3249 [place] [id number]. Villa PENG A micrscopic examina tion will be performed if indicated. Normal The [facility] Comment on above: Performed By: #### ROBERTO CARLOS CAMARENA ####[facility] Epilmpkqth5592 [place] [address]Dr. Villa Yanes Glucose Ql (U) Negative Normal NEGATIVE The [facility] Comment on above: Performed By: #### ANGELIA CAMARENARO ####[facility] Unbwhfsjfy8153 [place] [address]Dr. Villa Yanes Hemoglobin Ql (U) Negative Normal NEGATIVE The [facility] Comment on above: Performed By: #### ANGELIA CAMARENARO ####[facility] Kaogolravj[address] [place], [place] [address]Dr. Villa Yanes Ketones Ql (U) Negative Normal NEGATIVE The [facility] Comment on above: Performed By: #### ANGELIA CAMARENARO ####[facility] Arcugjteho255[address] [place], [place] [address]Dr. Villa Yanes LEUKOCYTES Negative Normal NEGATIVE The [facility] Comment on above: Performed By: #### ANGELIA CAMARENARO ####[facility] Fqecckafew449[address] [place], [place] [address]Dr. Villa Yanes Nitrite Ql (U) Negative Normal NEGATIVE The [facility] Comment on above: Performed By: #### ANGELIA CAMARENARO ####[facility] Fjhtubnhzo855[address] [place], [place] [address]Dr. Villa Yanes pH (U) 5.5 [pH] Normal 5-9 The [facility] Comment on above: Performed By: #### ANGELIA CAMARENARO ####[facility] Ulorbcoibg4834 [place] [address]Dr. Villa Yanes Protein (U) [Mass/Vol] 300 mg/dL Abnormal NEGATIVE/ TRACE The [facility] Comment on above: Performed By: #### ANGELIA CAMARENARO ####[facility] Yfarsmrwbc0891 [place] [address]Dr. Villa Yanes SPEC GRAVITY 1.025 Normal 1.005-<=1.0 25 The [facility] Comment on above: Performed By: #### ROBERTO CARLOS CAMARENA ####[facility] Npfyonpuzb2300 [place] [address]Dr. Villa Yanes UR MICRO IND INDICATED Normal [facility] Comment on above: Performed By: #### ROBERTO CARLOS CAMARENA ####[facility] Zprbmvbolu7338 [place] [address]Dr. Villa Yanes Urobilinogen Qn (U) 0.2 {Mackenzie'U}/dL Normal 0.2 - 1. 0 [facility] Comment on above: Performed By: #### ROBERTO CARLOS CAMARENA ####[facility] Coozavnfgq1364 [place] [address]DrBrenden Yanes PROF 14(COMP METB)on 023 Albumin [Mass/Vol] 2.7 g/dL Critically low 3.4-5.0 [facility] Comment on above: Performed By: #### C MP ####[facility] Kywjauqlpx56[address] [place], [place] [address]Dr. Villa Yanes Albumin/Globulin [Mass ratio] 0.8 {ratio} Normal [facility] Comment on above: Performed By: #### C MP ####[facility] Osjwktzawc[address] [place], [place] [address]Dr. Villa Yanes ALP [Catalytic activity/Vol] 206 U/L Critically high 46-116 [facility] Comment on above: Performed By: #### C MP ####[facility] Qtqoepcmsm78[address] [place], [place] [address]DrBrenden Yanes ALT [Catalytic activity/Vol] 8 U/L Critically low 16-63 [facility] Comment on above: Performed By: #### C MP ####[facility] Nejbgnmfzc7764[address] [place], [place] [address]DrBrenden Yanes Anion gap [Moles/Vol] 12.4 mmol/L Normal [facility] Comment on above: Performed By: #### C MP ####[facility] Oadgwofutn874[address] [place], [place] [address]Dr. Villa Yanes AST [Catalytic activity/Vol] 9 U/L Critically low 15-37 The [facility] Comment on above: Performed By: #### C MP ####[facility] Harjtkpebu3074 [place] [address]Dr. Villa Yanes Bilirubin [Mass/Vol] 0.2 mg/dL Normal 0.2-1.0 [facility] Comment on above: Performed By: #### C MP ####[facility] Hvwvbqjfbe[address] [place], [place] [address]Dr. Villa Joaquín Calcium [Mass/Vol] 8.9 mg/dL Normal 8.5-10.1 The [facility] Comment on above: Performed By: #### C MP ####[facility] Djtodzqdsn[address] [place], [place] [address]Dr. Brooklynkaren Joaquín Chloride [Moles/Vol] 106 mmol/L Normal 98-107 The [facility] Comment on above: Performed By: #### C MP ####[facility] Dgbuuyaojj[address] [place], [place] [address]Dr. Villa Joaquín CO2 [Moles/Vol] 27.4 mmol/L Normal 21.0-32.0 The [facility] Comment on above: Performed By: #### C MP ####[facility] Ikkjijfixa[address] [place], [place] [address]Dr. Villa Joaquín Creatinine [Mass/Vol] 1.26 mg/dL Normal 0.70-1.30 The [facility] Comment on above: Performed By: #### C MP ####[facility] Bdmlqditle[address] [place], [place] [address]Dr. Brooklynkaren Joaquín EGFR-AF MACEDONIAN >60 Normal >=60 The [facility] Comment on above: Performed By: #### C MP ####[facility] Aulpoatefc99[address] [place], [place] [address]Dr. Villa Yanes EGFR-NON AF MACEDONIAN 55 mL/min/1.73m2 Critically low >=60 The [facility] Comment on above: Performed By: #### C MP ####[facility] Fztdnxdpfe86[address] [place], [place] [address]Dr. Villa Yanes Globulin (S) [Mass/Vol] 3.5 g/dL Normal [facility] Comment on above: Performed By: #### C MP ####[facility] Qdaooxgfoz8305 [place] [id number]. Villa Yanes Glucose [Mass/Vol] 125 mg/dL Critically high 74-106 T [facility] Comment on above: Performed By: #### C MP ####[facility] Ebrahtyhoz9511 [place] [id number]. Villa Yanes Potassium [Moles/Vol] 3.8 mmol/L Normal 3.5-5.1 [facility] Comment on above: Performed By: #### C MP ####[facility] Cikjgaprsa6763 [place] [address]Dr. Villa Yanes Protein [Mass/Vol] 6.2 g/dL Critically low 6.4-8.[address] [facility] Comment on above: Performed By: #### C MP ####[facility] Gsktidronh[address] [place], [place] [address]Dr. Villa Yanes Sodium [Moles/Vol] 142 mmol/L Normal 136-145 [facility] Comment on above: Performed By: #### C MP ####[facility] Onpxuyvwxo254[address] [place], [place] [address]Dr. Villa Yanes Urea nitrogen [Mass/Vol] 30.0 mg/dL Critically high 7.0-18.0 [facility] Comment on above: Performed By: #### C MP ####[facility] Mjxqggelfz9[address] [place], [place] [address]Dr. Villa Yanes Urea nitrogen/Creatinine [Mass ratio] 23.8 mg/mg Normal [facility] Comment on above: Performed By: #### C MP ####[facility] Ywzmcbkwrf6779 [place] [id number]. Villa Joaquín URINE MICROSCOPIC ONLYon BACTERIA NONE SEEN Normal NONE SEEN The [facility] Comment on above: Performed By: #### E ROBERTO CARLOS DAWN ####[facility] Xjgtmifdpp6828 [place] [id number]. Villa Joaquín Bacteria identified Cx Nom (U) NOT INDICATED Normal [facility] Comment on above: Performed By: #### Riddhi DAWN UMICRO ####[facility] Qtwzrwwnqm9502 [place] [address]Dr. Villa Yanes CAST SEEN Abnormal NONE SEEN The [facility] Comment on above: Performed By: #### Riddhi DAWN UMICRO ####[facility] Nqcobqsjpt1373 [place] [address]Dr. Villa Yanes Crystals LM Nom (Urine sed) NONE SEEN Normal NONE SEEN The [facility] Comment on above: Performed By: #### Riddhi DAWN UMICRO ####[facility] Yqfmphtmms2646 [place] [address]Dr. Villa Yanes Epithelial cells LM Ql (Urine sed) NONE SEEN Normal NONE SEEN /RARE The [facility] Comment on above: Performed By: #### Riddhi DAWN UMICRO ####[facility] Oizgjfcckf[address] [place], [place] [address]Dr. Villa Yanes MUCOUS NONE SEEN Normal NONE SEEN The [facility] Comment on above: Performed By: #### Riddhi DAWN UMICRO ####[facility] Gdfmpiswyj[address] [place], [place] [address]Dr. Villa Yanes RBC NONE SEEN Abnormal 0-2 The [facility] Comment on above: Performed By: #### Riddhi DAWN UMICRO ####[facility] Utuzqgagcg2864 [place] [address]Dr. Villa Yanes WBC 0-2 Abnormal NONE SEEN The [facility] Comment on above: Performed By: #### Riddhi DAWN UMICRO ####[facility] Bvmcdvhrmh[address] [place], [place] [address]Dr. Villa Yanes WBC CELLULAR CAST RARE Normal The [facility] Comment on above: Performed By: #### Riddhi DAWN UMICRO ####[facility] Ixtlyadbdv63[address] [place], [place] [address]Dr. Villa Yanes XR SACRUM_COCCYXon XR SACRUM_COCCYX Normal The [facility] BNPon 05-08-2022 Natriuretic peptide B (Bld) [Mass/Vol] 2957.0 pg/mL Critically high <=1,800.0 The [facility] Comment on above: Performed By: #### T SH, BNP, CMADM, CMP, T7 ####[facility] Asrgvjhvsk6402 [place] [address]Dr. Villa Yanes CARDIAC ANAMARIA ADMITon 022 CK [Catalytic activity/Vol] 88 U/L Normal 39-308 [facility] Comment on above: Performed By: #### T SH, BNP, CMADM, CMP, T7 ####[facility] Dgijclnrdg5563 [place] [address]Dr. Villa Yanes CK.MB [Mass/Vol] 2.75 ng/mL Normal <=3.60 The [facility] Comment on above: Performed By: #### T SH, BNP, CMADM, CMP, T7 ####[facility] Hemhytnano029[address] [place], [place] [address]Dr. Villa Yanes HSTROP 10.4 pg/mL Normal 4.0-76.1 The [facility] Comment on above: Result Comment: CUT- OFF POINTS HAVE BEEN ESTABLISHED BASED ON THE FOURTH UNIVERSAL DEFINITIONS OF MYOCARDIALINFARCTION. THE UPPER REFERENCE LIMIT (URL) OF TROPONIN, DEFINED THE 99TH PERCENTILE OFcTnI DISTRIBUTION IN A REFERENCE POPULATION, HAS BEEN CONFIRMED THE DECISION THRESHOLDFOR CT DIAGNOSIS. Performed By: #### T SH, BNP, CMADM, CMP, T7 ####[facility] Uwjgkswvlb8843 [place] [address]Dr. Villa Yanes JULIA 109 ng/mL Critically high 16- The [facility] Comment on above: Performed By: #### T SH, BNP, CMADM, CMP, T7 ####[facility] Oazrnjpcsq8521 [place] [address]Dr. Villa Yanes CBC AUTO DIFFon 05-08-2022 BASO # 0.0 103/ul Normal 0.0-0.1 The [facility] Comment on above: Performed By: #### C BC ####[facility] Crnzwkthko137[address] [place], [place] [address]Dr. Villa Yanes Basophils/100 WBC (Bld) 0.2 % Normal 0.2-2.0 The [facility] Comment on above: Performed By: #### C BC ####[facility] Nbtowyhoil7973 [place] [id number] Villa Yanes EO # 0.0 103/ul Normal 0.0-0.7 The [facility] Comment on above: Performed By: #### C BC ####[facility] Zkufppsiuh[address] [place], [place] [address]DrBrenden Brooklynkaren Yanes Eosinophils/100 WBC (Bld) 0.0 % Critically low 0.9-7.0 [facility] Comment on above: Performed By: #### C BC ####[facility] Bxieooeufs[address] [place], [place] [address]Dr. Brooklynkaren Yanes Erythrocyte distribution width (RBC) [Ratio] 12.5 % Normal 11.0-15.0 [facility] Comment on above: Performed By: #### C BC ####[facility] Ybtglavutu54[address] [place], [place] [address]Dr. Villa Yanes Hematocrit (Bld) [Volume fraction] 30.0 % Critically low 42.0-54.0 [facility] Comment on above: Performed By: #### C BC ####[facility] Vjsqvzrvri[address] [place], [place] [address]Dr. Villa Joaquín Hemoglobin (Bld) [Mass/Vol] 9.9 g/dL Critically low 14.0-18.0 [facility] Comment on above: Performed By: #### C BC ####[facility] Deiasxyqge209[address] [place], [place] [address]Dr. [place]karen Yanes IG # 0.13 10e3/ul Critically high 0.00-0.03 [facility] Comment on above: Performed By: #### C BC ####[facility] Andxbgatvg146[address] [place], [place] [address]DrBrenden Yanes IG % 0.9 % Critically high 0.0-0.5 The [facility] Comment on above: Performed By: #### C BC ####[facility] Jfshcjamwp83[address] [place], [place] [address]DrBrenden Yanes LYMPH # 0.8 103/ul Critically low 1.2-3.8 [facility] Comment on above: Performed By: #### C BC ####[facility] Hujbbatelb8995 [place] [address]DrBrenden Yanes Lymphocytes/100 WBC (Bld) 5.7 % Critically low 20.5-60.0 [facility] Comment on above: Performed By: #### C BC ####[facility] Uyyjqnmqfy6936 [place] [address]DrBrenden Yanes MANUAL DIFF REQ NO Normal [facility] Comment on above: Performed By: #### C BC ####[facility] Wnlekhnplp7493 [place] [id number] Yanes MCH (RBC) [Entitic mass] 32.1 pg Normal 25.9-34.0 [facility] Comment on above: Performed By: #### C BC ####[facility] Gklsmateqo07[address] [place], [place] [address]DrBrenden Yanes MCHC (RBC) [Mass/Vol] 33.0 g/dL Normal 29.9-35.2 [facility] Comment on above: Performed By: #### C BC ####[facility] Ycacgpoydb[address] [place], [place] [address]DrBrenden Yanes MCV (RBC) [Entitic vol] 97.4 fL Critically high 80.0-94.0 [facility] Comment on above: Performed By: #### C BC ####[facility] Bfdglksmzb[address] [place], [place] [address]DrBrenden Yanes MONO # 0.5 103/ul Normal 0.3-0.8 [facility] Comment on above: Performed By: #### C BC ####[facility] Clfoaedftk186[address] [place], [place] [address]DrBrenden Yanes Monocytes/100 WBC (Bld) 3.4 % Normal 1.7-12.0 [facility] Comment on above: Performed By: #### C BC ####[facility] Nunmalkoet[address] [place], [place] [address]DrBrenden Yanes NEUT # 13.1 103/ul Critically high 1.4-6.5 The [facility] Comment on above: Performed By: #### C BC ####[facility] Tiifurhrqv6788 [place] [address]Dr. Villa Yanes Neutrophils/100 WBC (Bld) 89.8 % Critically high 43.0-75.0 [facility] Comment on above: Performed By: #### C BC ####[facility] Knuchjyaxl2050 [place] [address]Dr. Villa Yanes Platelet mean volume (Bld) [Entitic vol] 9.9 fL Normal 9.5-13.5 [facility] Comment on above: Performed By: #### C BC ####[facility] Lqlcqpldbi2969 [place] [address]Dr. Villa Joaquín PLT 281 103/ul Normal 150-450 [facility] Comment on above: Performed By: #### C BC ####[facility] Gsjsleumst0218 [place] [address]Dr. Villa Joaquín RBC 3.08 106/ul Critically low 4.70-6.10 [facility] Comment on above: Performed By: #### C BC ####[facility] [address]maewoyrff[address] [place], [place] [address]Dr. Villa Joaquín WBC 14.6 103/ul Critically high 4.0-11.0 [facility] Comment on above: Performed By: #### C BC ####[facility] Fnbzwhhsev[address] [place] [id number]. Villa Joaquín FREE THYROXINE INDEX T7on FTI 1.87 Normal 1.30-4.50 [facility] Comment on above: Performed By: #### T SH, BNP, CMADM, CMP, T7 ####[facility] Dwvotuhrqk8326 [place] [id number]. Villa Yanes T3U 39.0 % Normal 33.0-40.0 [facility] Comment on above: Performed By: #### T SH, BNP, CMADM, CMP, T7 ####[facility] Hpynpabroj5665 [place] [id number]. Villa Yanes T4 [Mass/Vol] 4.80 ug/dL Normal 4.50-12.10 [facility] Comment on above: Performed By: #### T SH, BNP, CMADM, CMP, T7 ####[facility] Zuvdckdyoi1477 [place] [address]Dr. Villa Yanes IRONon 05-08-2022 Iron [Mass/Vol] 96.0 ug/dL Normal 65.0-175.0 [facility] Comment on above: Performed By: #### I JOSE ####[facility] Xdzbyqjnoq1221 [place] [address]Dr. Villa Yanes PROF 14(COMP METB)on 022 Albumin [Mass/Vol] 2.8 g/dL Critically low 3.4-5.0 [facility] Comment on above: Performed By: #### T SH, BNP, CMADM, CMP, T7 ####[facility] Crqrnyfuod2304 [place] [address]Dr. Villa Yanes Albumin/Globulin [Mass ratio] 0.7 {ratio} Normal [facility] Comment on above: Performed By: #### T SH, BNP, CMADM, CMP, T7 ####[facility] Biyfjiepaf5285 [place] [address]Dr. Villa Yanes ALP [Catalytic activity/Vol] 231 U/L Critically high 46-116 [facility] Comment on above: Performed By: #### T SH, BNP, CMADM, CMP, T7 ####[facility] Bwmrcpftde0623 [place] [address]Dr. Villa Yanes ALT [Catalytic activity/Vol] 13 U/L Critically low 16-63 [facility] Comment on above: Performed By: #### T SH, BNP, CMADM, CMP, T7 ####[facility] Wlgodjkxdg7246 [place] [address]Dr. Villa Yanes Anion gap [Moles/Vol] 13.1 mmol/L Normal [facility] Comment on above: Performed By: #### T SH, BNP, CMADM, CMP, T7 ####[facility] Wiwzvlujva7018 [place] [address]Dr. Villa Yanes AST [Catalytic activity/Vol] 14 U/L Critically low 15-37 [facility] Comment on above: Performed By: #### T SH, BNP, CMADM, CMP, T7 ####[facility] Hfqzisonwz4434 [place] [address]Dr. Villa Yanes Bilirubin [Mass/Vol] 0.2 mg/dL Normal 0.2-1.0 [facility] Comment on above: Performed By: #### T SH, BNP, CMADM, CMP, T7 ####[facility] [facility] [address] [place] [address]Dr. Villa Yanes Calcium [Mass/Vol] 8.7 mg/dL Normal 8.5-10.1 [facility] Comment on above: Performed By: #### T SH, BNP, CMADM, CMP, T7 ####[facility] [address] [place] [address]Dr. Villa Yanes Chloride [Moles/Vol] 107 mmol/L Normal 98-107 [facility] Comment on above: Performed By: #### T SH, BNP, CMADM, CMP, T7 ####[facility] [address] [place] [address]Dr. Villa Yanes CO2 [Moles/Vol] 26.3 mmol/L Normal 21.0-32.0 [facility] Comment on above: Performed By: #### T SH, BNP, CMADM, CMP, T7 ####[facility] [address] [place] [address]Dr. Villa Yanes Creatinine [Mass/Vol] 1.42 mg/dL Critically high 0.70-1.30 [facility] Comment on above: Performed By: #### T SH, BNP, CMADM, CMP, T7 ####[facility] [address] [place] [address]Dr. Villa Yanes EGFR-AF MACEDONIAN 58 mL/min/1.73m2 Critically low >=60 [facility] Comment on above: Performed By: #### T SH, BNP, CMADM, CMP, T7 ####[facility] [address] [place] [address]Dr. Villa Yanes EGFR-NON AF MACEDONIAN 48 mL/min/1.73m2 Critically low >=60 [facility] Comment on above: Performed By: #### T SH, BNP, CMADM, CMP, T7 ####[facility] [address] [place] [address]Dr. Villa Yanes Globulin (S) [Mass/Vol] 3.8 g/dL Normal [facility] Comment on above: Performed By: #### T SH, BNP, CMADM, CMP, T7 ####[facility] [address] [place] [address]Dr. Villa Yanes Glucose [Mass/Vol] 144 mg/dL Critically high 74-106 [facility] Comment on above: Performed By: #### T SH, BNP, CMADM, CMP, T7 ####[facility] Isjcwsmlpn[address] [place] [address]Dr. Villa Yanes Potassium [Moles/Vol] 4.4 mmol/L Normal 3.5-5.1 [facility] Comment on above: Performed By: #### T SH, BNP, CMADM, CMP, T7 ####[facility] [address]frrmkeuj[address] [place] [address]Dr. Villa Yanes Protein [Mass/Vol] 6.6 g/dL Normal 6.4-8.2 [facility] Comment on above: Performed By: #### T SH, BNP, CMADM, CMP, T7 ####[facility] [address] [place] [address]Dr. Villa Yanes Sodium [Moles/Vol] 142 mmol/L Normal 136-145 [facility] Comment on above: Performed By: #### T SH, BNP, CMADM, CMP, T7 ####[facility] [address] [place] [address]Dr. Villa Yanes Urea nitrogen [Mass/Vol] 49.0 mg/dL Critically high 7.0-18.0 [facility] Comment on above: Performed By: #### T SH, BNP, CMADM, CMP, T7 ####[facility] X[address] [place] [address]Dr. Villa Yanes Urea nitrogen/Creatinine [Mass ratio] 34.5 mg/mg Normal [facility] Comment on above: Performed By: #### T SH, BNP, CMADM, CMP, T7 ####[facility] [address] [place] [address]Dr. Villa Yanes TSHon 05-08-2022 TSH 0.099 uIU/mL Critically low 0.358-3.740 [facility] Comment on above: Performed By: #### T SH, BNP, CMADM, CMP, T7 ####[facility] I[address]ls[address] [place] [address]Dr. Brooklynkaren Yanes XR SACRUM_COCCYXon 2 XR SACRUM_COCCYX Normal [facility] GLYCOHEMOGLOBIN A1Con 2021 ADA RECOMMENDATION SEE BELOW Normal [facility] Comment on above: Result Comment: ADA RECOMMENDED LIMIT 4.0 - 6.0 ADA THERAPEUTIC TARGET < 7.0 ACTION SUGGESTED > 7.0 Performed By: #### A 1C ####[facility] [address] [place], [place] [address]Dr. Villa Joaquín Glucose [Mass/Vol] 140 mg/dL Normal [facility] Comment on above: Performed By: #### A 1C ####[facility] [address] [place] [address]Dr. Villa Joaquín HbA1c (Bld) [Mass fraction] 6.5 % Critically high 4.5-6.2 [facility] Comment on above: Performed By: #### A 1C ####[facility] [address]jwag[address] [place] [address]Dr. Villa Joaquín CBC AUTO DIFFon 04-03-2022 BASO # 0.1 103/ul Normal 0.0-0.1 [facility] Comment on above: Performed By: #### C BC ####[facility] [address] [place] [address]Dr. Villa Joaquín Basophils/100 WBC (Bld) 0.4 % Normal 0.2-2.0 [facility] Comment on above: Performed By: #### C BC ####[facility] F[address] [place] [id number]. Villa Yanes EO # 0.3 103/ul Normal 0.0-0.7 [facility] Comment on above: Performed By: #### C BC ####[facility] V[address]ueicckz[address] [place] [address]Dr. Villa Yanes Eosinophils/100 WBC (Bld) 2.4 % Normal 0.9-7.0 [facility] Comment on above: Performed By: #### C BC ####[facility] V[address] [place], [place] [address]Dr. Villa Yanes Erythrocyte distribution width (RBC) [Ratio] 12.3 % Normal 11.0-15.0 [facility] Comment on above: Performed By: #### C BC ####[facility] Hexfd[address] [place], [place] [address]Dr. Villa Yanes Hematocrit (Bld) [Volume fraction] 34.6 % Critically low 42.0-54.0 [facility] Comment on above: Performed By: #### C BC ####[facility] Y[address] [place], [place] [address]Dr. Villa Yanes Hemoglobin (Bld) [Mass/Vol] 11.4 g/dL Critically low 14.0-18.0 [facility] Comment on above: Performed By: #### C BC ####[facility] [address] [place], [place] [address]Dr. Villa Yanes IG # 0.07 10e3/ul Critically high 0.00-0.03 [facility] Comment on above: Performed By: #### C BC ####[facility] [address]ir[address] [place] [address]Dr. Villa Yanes IG % 0.5 % Normal 0.0-0.5 [facility] Comment on above: Performed By: #### C BC ####[facility] [address] [place], [place] [address]Dr. Villa Yanes LYMPH # 1.9 103/ul Normal 1.2-3.8 [facility] Comment on above: Performed By: #### C BC ####[facility] [address]crj[address] [place] [id number]. Villa Yanes Lymphocytes/100 WBC (Bld) 14.4 % Critically low 20.5-60.0 [facility] Comment on above: Performed By: #### C BC ####[facility] [address]uc[address] [place] [id number]. Villa Yanes MANUAL DIFF REQ NO Normal [facility] Comment on above: Performed By: #### C BC ####[facility] [address]qcdrm[address] [place] [address]Dr. Villa Yanes MCH (RBC) [Entitic mass] 31.4 pg Normal 25.9-34.0 [facility] Comment on above: Performed By: #### C BC ####[facility] P[address]qrz[address] [place] [address]Dr. Villa Yanes MCHC (RBC) [Mass/Vol] 32.9 g/dL Normal 29.9-35.2 [facility] Comment on above: Performed By: #### C BC ####[facility] [address] [place] [address]Dr. Villa Yanes MCV (RBC) [Entitic vol] 95.3 fL Critically high 80.0-94.0 [facility] Comment on above: Performed By: #### C BC ####[facility] [address]aus[address]wc[address] [place] [address]Dr. Villa Joaquín MONO # 0.8 103/ul Normal 0.3-0.8 [facility] Comment on above: Performed By: #### C BC ####[facility] [address]yn[address] [place] [address]Dr. Villa Joaquín Monocytes/100 WBC (Bld) 5.8 % Normal 1.7-12.0 [facility] Comment on above: Performed By: #### C BC ####[facility] [address] [place], [place] [address]Dr. Villa Yanes NEUT # 10.3 103/ul Critically high 1.4-6.5 [facility] Comment on above: Performed By: #### C BC ####[facility] [address] [place] [id number]. Villa Yanes Neutrophils/100 WBC (Bld) 76.5 % Critically high 43.0-75.0 [facility] Comment on above: Performed By: #### C BC ####[facility] [address]isl[address] [place] [id number]. Villa Yanes Platelet mean volume (Bld) [Entitic vol] 9.6 fL Normal 9.5-13.5 [facility] Comment on above: Performed By: #### C BC ####[facility] V[address] [place] [address]Dr. Villa Yanes PLT 283 103/ul Normal 150-450 [facility] Comment on above: Performed By: #### C BC ####[facility] T[address] [place] [address]Dr. Villa Yanes RBC 3.63 106/ul Critically low 4.70-6.10 [facility] Comment on above: Performed By: #### C BC ####[facility] Npr[address]xf[address] [place] [id number]. Villa Yanes WBC 13.4 103/ul Critically high 4.0-11.0 [facility] Comment on above: Performed By: #### C BC ####[facility] R[address]frol[address] [place] [id number]. Villa Yanes CT ABD/PELV W CONon 04-03-[address] ABD/PELV W CON Normal [facility] ER URINE PROFILEon 2 Bilirubin Ql (U) Negative Normal NEGATIVE [facility] Comment on above: Performed By: #### U MICRO, ERUR ####[facility] W[address]ch[address] [place], [place] [address]Dr. Villa Yanes Clarity (U) CLEAR Normal CLEAR [facility] Comment on above: Performed By: #### U MICRO, ERUR ####[facility] [address]weud[address] [place] [id number]. Villa Yanes Color (U) YELLOW Normal YELLOW [facility] Comment on above: Performed By: #### U MICRO, ERUR ####[facility] Ahs[address]beboj[address] [place] [address]Dr. Villa DILLARDD A micrscopic examina tion will be performed if indicated. Normal [facility] Comment on above: Performed By: #### U MICRO, ERUR ####[facility] Ntnuatvxvk[address] [place] [address]Dr. Villa Yanes Glucose Ql (U) Negative Normal NEGATIVE [facility] Comment on above: Performed By: #### U MICRO, ERUR ####[facility] Ubwxemoraj[address] [place], [place] [address]Dr. Villa Yanes Hemoglobin Ql (U) Negative Normal NEGATIVE [facility] Comment on above: Performed By: #### U MICRO, ERUR ####[facility] A[address]qph[address]wa[address] [place], [place] [address]Dr. Villa Yanes Ketones Ql (U) Negative Normal NEGATIVE [facility] Comment on above: Performed By: #### U MICRO, ERUR ####[facility] S[address]dpikysxx[address] [place], [place] [address]Dr. Villa Yanes LEUKOCYTES TRACE Abnormal NEGATIVE [facility] Comment on above: Performed By: #### U MICRO, ERUR ####[facility] Xuxpmzmgjg[address] [place], [place] [address]Dr. Villa Yanes Nitrite Ql (U) Negative Normal NEGATIVE [facility] Comment on above: Performed By: #### U MICRO, ERUR ####[facility] Xiuiutucvx[address] [place], [place] [address]Dr. Villa Yanes pH (U) 6.0 [pH] Normal 5-9 [facility] Comment on above: Performed By: #### U MICRO, ERUR ####[facility] Ufsolizxds[address] [place], [place] [address]Dr. Villa Yanes Protein (U) [Mass/Vol] 100 mg/dL Abnormal NEGATIVE/ TRACE [facility] Comment on above: Performed By: #### U MICRO, ERUR ####[facility] G[address]msnfmwt[address] [place], [place] [address]Dr. Villa Yanes SPEC GRAVITY 1.020 Normal 1.005-<=1.0 25 [facility] Comment on above: Performed By: #### U MICRO, ERUR ####[facility] Qwshprmxrs[address] [place] [address]Dr. Villa Yanes UR MICRO IND INDICATED Normal [facility] Comment on above: Performed By: #### U MICRO, ERUR ####[facility] C[address]okusmq[address] [place] [address]Dr. Villa Yanes Urobilinogen Qn (U) 0.2 {Mackenzie'U}/dL Normal 0.2 - 1. 0 [facility] Comment on above: Performed By: #### U MICRO, ERUR ####[facility] T[address]qwo[address]pj[address] [place], [place] [address]Dr. Villa Yanes LIPASEon 04-03-2022 Lipase [Catalytic activity/Vol] 35.0 U/L Critically low 73.0-393.0 [facility] Comment on above: Performed By: #### L IPA, HSTROPN, CMP ####[facility] [address]qns[address] [place], [place] [address]Dr. Villa Yanes PROF 14(COMP METB)on 022 Albumin [Mass/Vol] 3.2 g/dL Critically low 3.4-5.0 [facility] Comment on above: Performed By: #### L IPA, HSTROPN, CMP ####[facility] Uvhxtxxsjz[address] [place] [address]Dr. Villa Yanes Albumin/Globulin [Mass ratio] 0.8 {ratio} Normal [facility] Comment on above: Performed By: #### L IPA, HSTROPN, CMP ####[facility] Y[address]jaxm[address] [place] [address]Dr. Villa Yanes ALP [Catalytic activity/Vol] 131 U/L Critically high 46-116 [facility] Comment on above: Performed By: #### L IPA, HSTROPN, CMP ####[facility] Xiccygiwra[address] [place] [address]Dr. Villa Yanes ALT [Catalytic activity/Vol] U/L Critically low 16-63 [facility] Comment on above: Performed By: #### L IPA, HSTROPN, CMP ####[facility] Offxnzfbnf[address] [place] [address]Dr. Villa Yanes Anion gap [Moles/Vol] 7.7 mmol/L Normal [facility] Comment on above: Performed By: #### L IPA, HSTROPN, CMP ####[facility] Ofopofjtqf4352 [place] [address]Dr. Villa Yanes AST [Catalytic activity/Vol] 6 U/L Critically low 15-37 [facility] Comment on above: Performed By: #### L IPA HSTROPN, CMP ####[facility] Z[address]thm[address]dkz[address] [place], [place] [address]Dr. Villa Yanes Bilirubin [Mass/Vol] 0.2 mg/dL Normal 0.2-1.0 [facility] Comment on above: Performed By: #### L IPA HSTROPN, CMP ####[facility] [address] [place], [place] [address]Dr. Villa Yanes Calcium [Mass/Vol] 9.1 mg/dL Normal 8.5-10.1 [facility] Comment on above: Performed By: #### L IPA HSTROPN, CMP ####[facility] Ems[address]anya[address] [place], [place] [address]Dr. Villa Yanes Chloride [Moles/Vol] 104 mmol/L Normal 98-107 [facility] Comment on above: Performed By: #### L IPA HSTROPN, CMP ####[facility] [address]frrkphyla[address] [place], [place] [address]Dr. Villa Yanes CO2 [Moles/Vol] 29.7 mmol/L Normal 21.0-32.0 [facility] Comment on above: Performed By: #### L IPA, HSTROPN, CMP ####[facility] [address]qwc[address]es[address] [place], [place] [address]Dr. Villa Yanes Creatinine [Mass/Vol] 1.35 mg/dL Critically high 0.70-1.30 [facility] Comment on above: Performed By: #### L IPA, HSTROPN, CMP ####[facility] W[address]wqxlq[address] [place] [address]Dr. Villa Yanes EGFR-AF MACEDONIAN >60 Normal >=60 [facility] Comment on above: Performed By: #### L IPA, HSTROPN, CMP ####[facility] Hbxjoqnukz[address] [place] [address]Dr. Villa Yanes EGFR-NON AF MACEDONIAN 51 mL/min/1.73m2 Critically low >=60 [facility] Comment on above: Performed By: #### L IPA, HSTROPN, CMP ####[facility] Daspsoosle[address] [place] [address]Dr. Villa Yanes Globulin (S) [Mass/Vol] 4.2 g/dL Normal [facility] Comment on above: Performed By: #### L IPA, HSTROPN, CMP ####[facility] Byfuqmx[address] [place], [place] [address]Dr. Villa Yanes Glucose [Mass/Vol] 116 mg/dL Critically high 74-106 [facility] Comment on above: Performed By: #### L IPA, HSTROPN, CMP ####[facility] G[address] [place], [place] [address]Dr. Villa Yanes Potassium [Moles/Vol] 3.4 mmol/L Critically low 3.5-5.1 [facility] Comment on above: Performed By: #### L IPA, HSTROPN, CMP ####[facility] [address]tv[address] [place], [place] [address]Dr. Villa Yanes Protein [Mass/Vol] 7.4 g/dL Normal 6.4-8.2 [facility] Comment on above: Performed By: #### L IPA, HSTROPN, CMP ####[facility] [address]my[address] [place], [place] [address]Dr. Villa Yanes Sodium [Moles/Vol] 138 mmol/L Normal 136-145 [facility] Comment on above: Performed By: #### L IPA, HSTROPN, CMP ####[facility] [address] [place], [place] [id number]. Villa Yanes Urea nitrogen [Mass/Vol] 35.0 mg/dL Critically high 7.0-18.0 [facility] Comment on above: Performed By: #### L IPA, HSTROPN, CMP ####[facility] [address]xkusu[address] [place] [address]Dr. Villa Yanes Urea nitrogen/Creatinine [Mass ratio] 25.9 mg/mg Normal [facility] Comment on above: Performed By: #### L IPA, HSTROPN, CMP ####[facility] [address] [place] [address]Dr. Villa Yanes TROPONIN, HIGH SENSITIVITYon 04-03-2022 HSTROP 10.3 pg/mL Normal 4.0-76.1 [facility] Comment on above: Result Comment: CUT- OFF POINTS HAVE BEEN ESTABLISHED BASED ON THE FOURTH UNIVERSAL DEFINITIONS OF MYOCARDIALINFARCTION. THE UPPER REFERENCE LIMIT (URL) OF TROPONIN, DEFINED THE 99TH PERCENTILE OFcTnI DISTRIBUTION IN A REFERENCE POPULATION, HAS BEEN CONFIRMED THE DECISION THRESHOLDFOR CT DIAGNOSIS. Performed By: #### L IPA, HSTROPN, CMP ####[facility] [address] [place] [address]Dr. Villa Yanes URINE MICROSCOPIC ONLYon BACTERIA NONE SEEN Normal NONE SEEN [facility] Comment on above: Performed By: #### U MICRO, ERUR ####[facility] [address] [place], [place] [address]Dr. [place]karen Yanes Bacteria identified Cx Nom (U) NOT INDICATED Normal [facility] Comment on above: Performed By: #### U MICRO, ERUR ####[facility] [address]unq[address] [place] [address]Dr. Villa Yanes CAST SEEN Abnormal NONE SEEN [facility] Comment on above: Performed By: #### U MICRO, ERUR ####[facility] [address]nw[address] [place] [address]Dr. Villa Yanes Crystals LM Nom (Urine sed) NONE SEEN Normal NONE SEEN [facility] Comment on above: Performed By: #### U MICRO, ERUR ####[facility] [address] [place], [place] [address]Sv. Villa Yanes Epithelial cells LM Ql (Urine sed) NONE SEEN Normal NONE SEEN /RARE [facility] Comment on above: Performed By: #### U MICRO, ERUR ####[facility] [address] [place], [place] [address]Ii. Villa Yanes MUCOUS NONE SEEN Normal NONE SEEN [facility] Comment on above: Performed By: #### U MICRO, ERUR ####[facility] [address]dtpuw9188 [place], [place] [address]Bd. Villa Yanes RBC NONE SEEN Abnormal 0-2 [facility] Comment on above: Performed By: #### U MICRO, ERUR ####[facility] A[address]meshgt4024 [place], [place] [address]Ug. Villa Yanes WBC 0-2 Abnormal NONE SEEN [facility] Comment on above: Performed By: #### U MICRO, ERUR ####[facility] [address] [place] [id number]. 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) Ischemic cardiomyopathy (414.8) (I25.5) Paroxysmal atrial fibrillation (427.31) (I48.0) Body mass index (BMI) of 19.9 or less in adult (Z68.1) Cardiac arrest (427.5) (I46.9) PVD (peripheral vascular disease) (443.9) (I73.9) CHF (NYHA class II, ACC/AHA stage C) (428.0) (I50.9) Current smoker (305.1) (F17.200) 1 ppd Orders 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 You may also call [phone]; Status:Complete - Retrospective Authorization; Done: 12Mar2022 Tobacco [...] has had previous high risk non-ST elevation CT earlier this year July 2021, with subsequent revascularization of the RCA with drug-eluting stent and normalization of his LV function originally from 30 now up to 60% as measured by echo at [facility]. He has underlying peripheral vascular disease, ongoing tobacco use, COPD, history of throat cancer with PEG tube. He underwent recent hospitalization at [facility] with significant weight loss and debility and revision of his PEG tube and now clinically improved putting and weight back on. He was diagnosed with paroxysmal atrial fibrillation at the clinic and therefore initiated on Eliquis therapy. 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 Normal [employer] Tobacco Screening.on 022 Fall risk assessment a) No falls within the last year [facility] [employer] DO Work Phone: Tobacco use status CP a) Yes [facility] [employer] DO Work Phone: Tobacco Screening. 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 Yes [facility]-Sandu marika 250 DO Work Phone: Basic metabolic 2000 panelon 02-03-2022 Anion gap [Moles/Vol] 12 mmol/L Normal 9-18 [facility] Comment on above: Order Comment: Speci men Type: BLOOD SPECIMENOrdering Facility: [facility] Address: [address] [place] [address] Performed By: #### 1 9123-9, 2777-1, 51934-0 ####[facility] LABCLIA [id number] [place] [id number] [place] Calcium [Mass/Vol] 10.1 mg/dL Normal 8.5-10.2 [facility] Comment on above: Order Comment: Speci men Type: BLOOD SPECIMENOrdering Facility: [facility] Address: [address] [place] [address] Performed By: #### 1 9123-9, 2777-1, 46652-5 ####[facility] LABCLIA [id number] [address] [address] [place] Chloride [Moles/Vol] 100 mmol/L Normal 97-105 [facility] Comment on above: Order Comment: Speci men Type: BLOOD SPECIMENOrdering Facility: [facility] Address: [address] [place], [place] [address] Performed By: #### 1 9123-9, 27711-21, 98168-0 ####[facility] LABCLIA [id number] [place] [address] [place] CO2 [Moles/Vol] 24 mmol/L Normal 22-30 [facility] Comment on above: Order Comment: Speci men Type: BLOOD SPECIMENOrdering Facility: [facility] Address: [address] [place] [address] Performed By: #### 1 9123-9, 27711-21, 78590-1 ####[facility] LABCLIA [id number] [place] [address] [place] Creatinine [Mass/Vol] 1.14 mg/dL Normal 0.73-1.22 [facility] Comment on above: Order Comment: Speci men Type: BLOOD SPECIMENOrdering Facility: [facility] Address: [address] [place] [address] Performed By: #### 1 9123-9, 27711-21, 65562-0 ####[facility] LABIA [id number] [place] [address] [place] ESTIMATED GLOMERULAR FILTRATION RATE 65 mL/min/1.73m??? Normal >=60 [facility] Comment on above: Order Comment: Speci men Type: BLOOD SPECIMENOrdering Facility: [facility] Address: [address] [place], [place] [address] Result Comment: Sandra mated Glomerular Filtration Rate [...] GFR. Performed By: #### 1 9123-9, 2777-, 16242-3 ####[facility] LABCLIA [id number] [address] [address] [place] Glucose [Mass/Vol] 209 mg/dL High 74-99 [facility] Comment on above: Order Comment: Speci men Type: BLOOD SPECIMENOrdering Facility: [facility] Address: [address] [place] [phone] Result Comment: The Citizen Of [place] Diabetes Association (ADA) provides guidance for cutoff [...] Standards of Medical Care in Diabetes 2016, Citizen Of [place] Diabetes Association. Diabetes Care. 2016.39(Suppl 1). Performed By: #### 1 9123-9, 2777-, 69445-6 ####[facility] LABIA [id number] [place] [address] [place] Potassium [Moles/Vol] 4.8 mmol/L Normal 3.7-5.1 [facility] Comment on above: Order Comment: Speci men Type: BLOOD SPECIMENOrdering Facility: [facility] Address: [address] [place] [address] Performed By: #### 1 9123-9, 2777-, 22638-2 ####[facility] LABIA [id number] [address] [address] [place] Sodium [Moles/Vol] 136 mmol/L Normal 136-144 [facility] Comment on above: Order Comment: Speci men Type: BLOOD SPECIMENOrdering Facility: [facility] Address: [address] [place], [place] [address] Performed By: #### 1 9123-9, 2777-1, 38198-1 ####[facility] LABCLIA [id number] [place] [address] [place] Urea nitrogen [Mass/Vol] 32 mg/dL High 9-24 [facility] Comment on above: Order Comment: Speci men Type: BLOOD SPECIMENOrdering Facility: [facility] Address: [address] [place], [place] [address] Performed By: #### 1 9123-9, 2777-1, 75347-5 ####[facility] LABCLIA [id number] [place] [address] [place] CASE MANAGEMon 02-03-2022 CASE MANAGEM Normal [facility] CBC W Auto Differential pane l (Bld)on 02-03-2022 Basophils (Bld) [#/Vol] 10*3/uL Normal <0.11 [facility] Comment on above: Order Comment: Speci men Type: BLOOD SPECIMENOrdering Facility: [facility] Address: [address] [place], [place] [address] Performed By: #### 5 7021-8 ####[facility] LABCLIA [id number] [place] [address] [place] Basophils/100 WBC (Bld) 0.1 % Normal [facility] Comment on above: Order Comment: Speci men Type: BLOOD SPECIMENOrdering Facility: [facility] Address: [address] [place], [place] [address] Performed By: #### 5 7021-8 ####[facility] LABCLIA [id number] [place] [address] [place] Differential cell count method Nom (Bld) Auto Normal [facility] Comment on above: Order Comment: Speci men Type: BLOOD SPECIMENOrdering Facility: [facility] Address: [address] [place] [address] Performed By: #### 5 7021-8 ####[facility] LABCLIA [id number] [place] [address] [place] Eosinophils (Bld) [#/Vol] 10*3/uL Normal <0.46 [facility] Comment on above: Order Comment: Speci men Type: BLOOD SPECIMENOrdering Facility: [facility] Address: [address] [place], [place] [address] Performed By: #### 5 7021-8 ####[facility] LABCLIA [id number] [place] [address] [place] Eosinophils/100 WBC (Bld) 0.0 % Normal [facility] Comment on above: Order Comment: Speci men Type: BLOOD SPECIMENOrdering Facility: [facility] Address: [address] [place], [place] [address] Performed By: #### 5 7021-8 ####[facility] LABCLIA [id number] [place] [address] [place] Erythrocyte distribution width (RBC) [Ratio] 13.2 % Normal 11.5-15.0 [facility] Comment on above: Order Comment: Speci men Type: BLOOD SPECIMENOrdering Facility: [facility] Address: [address] [place] [address] Performed By: #### 5 7021-8 ####[facility] LABCLIA [id number] [place] [address] [place] Hematocrit (Bld) [Volume fraction] 34.6 % Low 39.0-51.0 [facility] Comment on above: Order Comment: Speci men Type: BLOOD SPECIMENOrdering Facility: [facility] Address: [address] [place], [place] [address] Performed By: #### 5 7021-8 ####[facility] LABCLIA [id number] [address] [place] Hemoglobin (Bld) [Mass/Vol] 11.6 g/dL Low 13.0-17.0 [facility] Comment on above: Order Comment: Speci men Type: BLOOD SPECIMENOrdering Facility: [facility] Address: [address] [place] [address] Performed By: #### 5 7021-8 ####[facility] LABCLIA [id number] [address] OF [facility] IMMATURE GRAN % 1.0 % Normal [facility] Comment on above: Order Comment: Speci men Type: BLOOD SPECIMENOrdering Facility: [facility] Address: [address] [place] [address] Performed By: #### 5 7021-8 ####[facility] LABCLIA [id number] [address] STATES OF [facility] IMMATURE GRAN ABS 0.15 k/uL High <0.10 [facility] Comment on above: Order Comment: Speci men Type: BLOOD SPECIMENOrdering Facility: [facility] Address: [address] [place], [place] [address] Performed By: #### 5 7021-8 ####[facility] LABIA [id number] [place] [address] [place] Lymphocytes (Bld) [#/Vol] 0.79 10*3/uL Low 1.00-4.00 [facility] Comment on above: Order Comment: Speci men Type: BLOOD SPECIMENOrdering Facility: [facility] Address: [address] [place], [place] [address] Performed By: #### 5 7021-8 ####[facility] LABCLIA [id number] [address] [place] Lymphocytes/100 WBC (Bld) 5.2 % Normal [facility] Comment on above: Order Comment: Speci men Type: BLOOD SPECIMENOrdering Facility: [facility] Address: [address] [place], [place] [address] Performed By: #### 5 7021-8 ####[facility] [id number] [address] MCH (RBC) [Entitic mass] 32.0 pg Normal 26.0-34.0 [facility] Comment on above: Order Comment: Speci men Type: BLOOD SPECIMENOrdering Facility: [facility] Address: [address] [place], [place] [address] Performed By: #### 5 7021-8 ####[facility] [id number] [address] [place] MCHC (RBC) [Mass/Vol] 33.5 g/dL Normal 30.5-36.0 [facility] Comment on above: Order Comment: Speci men Type: BLOOD SPECIMENOrdering Facility: [facility] Address: [address] [place], [place] [address] Performed By: #### 5 7021-8 ####[facility] [id number] [address] [place] MCV (RBC) [Entitic vol] 95.6 fL Normal 80.0-100.0 [facility] Comment on above: Order Comment: Speci men Type: BLOOD SPECIMENOrdering Facility: [facility] Address: [address] [place], [place] [address] Performed By: #### 5 7021-8 ####[facility] [id number] [place] [address] [place] Monocytes (Bld) [#/Vol] 0.10 10*3/uL Normal <0.87 [facility] Comment on above: Order Comment: Speci men Type: BLOOD SPECIMENOrdering Facility: [facility] Address: [address] [place], [place] [address] Performed By: #### 5 7021-8 ####[facility] LABCLIA [id number] [address] [address] [place] Monocytes/100 WBC (Bld) 0.7 % Normal [facility] Comment on above: Order Comment: Speci men Type: BLOOD SPECIMENOrdering Facility: [facility] Address: [address] [place], [place] [address] Performed By: #### 5 7021-8 ####[facility] LABCLIA [id number] [place] [address] [place] Neutrophils (Bld) [#/Vol] 14.02 10*3/uL High 1.45-7.50 [facility] Comment on above: Order Comment: Speci men Type: BLOOD SPECIMENOrdering Facility: [facility] Address: [address] [place] [address] Performed By: #### 5 7021-8 ####[facility] LABCLIA [id number] [place] [address] [place] Neutrophils/100 WBC (Bld) 93.0 % Normal [facility] Comment on above: Order Comment: Speci men Type: BLOOD SPECIMENOrdering Facility: [facility] Address: [address] [place] [address] Performed By: #### 5 7021-8 ####[facility] LABCLIA [id number] [place] [address] [place] Nucleated RBC (Bld) [#/Vol] 10*3/uL Normal <0.01 [facility] Comment on above: Order Comment: Speci men Type: BLOOD SPECIMENOrdering Facility: [facility] Address: [address] [place] [address] Performed By: #### 5 7021-8 ####[facility] LABCLIA [id number] [place] [address] [place] Nucleated RBC/100 WBC (Bld) [Ratio] 0.0 /100 WBC Normal [facility] Comment on above: Order Comment: Speci men Type: BLOOD SPECIMENOrdering Facility: [facility] Address: [address] [place], [place] [address] Performed By: #### 5 7021-8 ####[facility] LABCLIA [id number] [place] [address] [place] Platelet mean volume (Bld) [Entitic vol] 10.3 fL Normal 9.0-12.7 [facility] Comment on above: Order Comment: Speci men Type: BLOOD SPECIMENOrdering Facility: [facility] Address: [address] [place], [place] [address] Performed By: #### 5 7021-8 ####[facility] LABCLIA [id number] [place] [address] [place] Platelets (Bld) [#/Vol] 351 10*3/uL Normal 150-400 [facility] Comment on above: Order Comment: Speci men Type: BLOOD SPECIMENOrdering Facility: [facility] Address: [address] [place], [place] [address] Performed By: #### 5 7021-8 ####[facility] LABCLIA [id number] [place] [address] [place] RBC (Bld) [#/Vol] 3.62 10*6/uL Low 4.20-6.00 [place] Comment on above: Order Comment: Speci men Type: BLOOD SPECIMENOrdering Facility: [facility] Address: [address] [place], [place] [address] Performed By: #### 5 7021-8 ####[facility] LABCLIA [id number] [place] [address] [place] WBC (Bld) [#/Vol] 15.08 10*3/uL High 3.70-11.00 [facility] Comment on above: Order Comment: Speci men Type: BLOOD SPECIMENOrdering Facility: [facility] Address: [address] [place] [address] Performed By: #### 5 7021-8 ####[facility] LABIA [id number] [place] [address] [place] Magnesium SerPl-mCncon 02-03 Magnesium [Mass/Vol] 2.1 mg/dL Normal 1.7-2.3 [facility] Comment on above: Order Comment: Speci men Type: BLOOD SPECIMENOrdering Facility: [facility] Address: [address] [place], [place] [address] Performed By: #### 1 9123-9, 2777-1, 80581-3 ####[facility] LABIA [id number] [place] [address] [place] NURSING PROGon 02-03-2022 NURSING PROG Normal [facility] NUTRITIONon 02-03-2022 NUTRITION Normal [facility] PT EDon 02-03-2022 PT ED Normal [facility] Phosphate SerPl-mCncon 02-03 Phosphate [Mass/Vol] 3.2 mg/dL Normal 2.7-4.8 [facility] Comment on above: Order Comment: Speci men Type: BLOOD SPECIMENOrdering Facility: [facility] Address: [address] [place] [address] Performed By: #### 1 9123-9, 2777-1, 44310-5 ####[facility] LABIA [id number] [place] [id number] [place] THERAPY NTon 02-03-2022 THERAPY NT Normal [facility] THERAPY NT Normal [facility] ANES POSTPROC EVALon 022 ANES POSTPROC EVAL Normal [facility] ANES PRE-OPon 02-02-2022 ANES PRE-OP Normal [facility] BRIEF OP NOTon 02-02-2022 BRIEF OP NOT Normal [facility] CNPNon 02-02-2022 CNPN Normal [facility] OPERATIVE NOon 02-02-2022 OPERATIVE NO Normal [facility] CNPNon 01-27-2022 CNPN Normal [facility] HISTORY PHYSICALon 2 HISTORY PHYSICAL Normal [facility] NURSING PROGon 01-24-2022 NURSING PROG Normal [facility] XR ABDOMEN 1V SUPINEon 01-24 XR ABDOMEN 1V SUPINE [facility] XR ABDOMEN 1V SUPINE [facility] CNOVon 2022 CNOV Normal [facility] Tobacco Screening.on 022 Fall risk assessment b) One or more fall s in the last year -[facility] Heart-Sandu marika 250 DO Work Phone: Tobacco use status CP a) Yes [facility] Heart-Sandu marika 250 DO Work Phone: Tobacco Screening. Yes [facility] marika 250 DO Work Phone: CNOVon 12-31-2021 CNOV Normal [facility] CNOV Normal [facility] HISTORY PHYSICALon 2 HISTORY PHYSICAL Normal [facility] CULTURE URINEon 12-21-2021 CULTURE URINE Normal [facility] Comment on above: Performed By: #### U RCX ####[facility] [address] [place] [address]Dr. Villa Yanes UA RANDOM W/MICROSCOPICon BACTERIA LARGE Abnormal NONE SEEN [facility] Comment on above: Performed By: #### U AMIC ####[facility] [address] [place] [id number]. Villa Yanes Bilirubin Ql (U) Negative Normal NEGATIVE [facility] Comment on above: Performed By: #### U AMIC ####[facility] [address] [place] [address]Dr. Villa Yanes CAST NONE SEEN Normal NONE SEEN [facility] Comment on above: Performed By: #### U AMIC ####[facility] [address] [place] [address]Dr. Villa Yanes Clarity (U) CLEAR Normal CLEAR [facility] Comment on above: Performed By: #### U AMIC ####[facility] [address] [place], [place] [address]Dr. Villa Yanes Color (U) LT. YELLOW Normal YELLOW [facility] Comment on above: Performed By: #### U AMIC ####[facility] [address] [place], [place] [address]Dr. Villa Yanes Crystals LM Nom (Urine sed) NONE SEEN Normal NONE SEEN [facility] Comment on above: Performed By: #### U AMIC ####[facility] X[address] [place], [place] [address]Dr. Villa Yanes Epithelial cells LM Ql (Urine sed) FEW Abnormal NONE SEEN /RARE [facility] Comment on above: Performed By: #### U AMIC ####[facility] Okpkfefrso[address] [place], [place] [address]Dr. Villa Yanes Glucose Ql (U) Negative Normal NEGATIVE [facility] Comment on above: Performed By: #### U AMIC ####[facility] Ar[address]ftxy[address] [place], [place] [address]Dr. Villa Yanes Hemoglobin Ql (U) Negative Normal NEGATIVE [facility] Comment on above: Performed By: #### U AMIC ####[facility] [address] [place], [place] [address]Dr. Villa Yanes Ketones Ql (U) Negative Normal NEGATIVE [facility] Comment on above: Performed By: #### U AMIC ####[facility] Y[address] [place], [place] [address]Dr. Villa Yanes LEUKOCYTES LARGE Abnormal NEGATIVE [facility] Comment on above: Performed By: #### U AMIC ####[facility] V[address]uv[address]vk[address] [place], [place] [address]Dr. Villa Yanes MUCOUS NONE SEEN Normal NONE SEEN [facility] Comment on above: Performed By: #### U AMIC ####[facility] Ofioxmupoi[address] [place], [place] [address]Dr. Villa Yanes Nitrite Ql (U) Negative Normal NEGATIVE [facility] Comment on above: Performed By: #### U AMIC ####[facility] [address] [place] [address]Dr. Villa Yanes pH (U) 7.5 [pH] Normal 5-9 [facility] Comment on above: Performed By: #### U AMIC ####[facility] [address] [place] [phone]. Villa Yanes RBC NONE SEEN Abnormal 0-2 [facility] Comment on above: Performed By: #### U AMIC ####[facility] [address] [place] [address]Dr. Villa Yanes SPEC GRAVITY 1.015 Normal 1.005-<=1.0 25 [facility] Comment on above: Performed By: #### U AMIC ####[facility] [address] [place], [place] [address]Dr. Villa Yanes UA PROTEIN 100 mg/dl Abnormal NEGATIVE/ TRACE [facility] Comment on above: Performed By: #### U AMIC ####[facility] [address] [place], [place] [address]Dr. Villa Yanes Urobilinogen Qn (U) 0.2 {Mackenzie'U}/dL Normal 0.2 - 1. 0 [facility] Comment on above: Performed By: #### U AMIC ####[facility] Phfrzqulcr[address] [place], [place] [address]Dr. Villa Yanes WBC 50-75 Abnormal NONE SEEN [facility] Comment on above: Performed By: #### U AMIC ####[facility] Kvdviilyzz[address] [place], [place] [address]Dr. Villa Joaquín CBC AUTO DIFFon 12-18-2021 BASO # 0.1 103/ul Normal 0.0-0.1 [facility] Comment on above: Performed By: #### C BC ####[facility] Bkw[address]mgau[address] [place], [place] [address]Dr. Villa Yanes Basophils/100 WBC (Bld) 0.7 % Normal 0.2-2.0 [facility] Comment on above: Performed By: #### C BC ####[facility] [address] [place] [id number]. Villa Yanes EO # 0.6 103/ul Normal 0.0-0.7 [facility] Comment on above: Performed By: #### C BC ####[facility] [address]si[address] [place] [address]Dr. Villa Yanes Eosinophils/100 WBC (Bld) 4.0 % Normal 0.9-7.0 [facility] Comment on above: Performed By: #### C BC ####[facility] [address]rt[address] [place], [place] [address]Dr. Villa Yanes Erythrocyte distribution width (RBC) [Ratio] 13.9 % Normal 11.0-15.0 [facility] Comment on above: Performed By: #### C BC ####[facility] [address]xi[address] [place], [place] [address]Dr. Villa Yanes Hematocrit (Bld) [Volume fraction] 33.4 % Critically low 42.0-54.0 [facility] Comment on above: Performed By: #### C BC ####[facility] Awxvd[address]wy[address] [place], [place] [address]Dr. Villa Yanes Hemoglobin (Bld) [Mass/Vol] 11.1 g/dL Critically low 14.0-18.0 [facility] Comment on above: Performed By: #### C BC ####[facility] [address]ws[address] [place], [place] [address]Dr. Villa Yanes IG # 0.15 10e3/ul Critically high 0.00-0.03 [facility] Comment on above: Performed By: #### C BC ####[facility] [address] [place], [place] [address]Dr. Vilal Yanes IG % 1.0 % Critically high 0.0-0.5 [facility] Comment on above: Performed By: #### C BC ####[facility] [address] [place], [place] [address]Dr. Villa Yanes LYMPH # 1.9 103/ul Normal 1.2-3.8 [facility] Comment on above: Performed By: #### C BC ####[facility] [address] [place] [id number]. Villa Joaquín Lymphocytes/100 WBC (Bld) 12.2 % Critically low 20.5-60.0 [facility] Comment on above: Performed By: #### C BC ####[facility] [address]ss[address] [place] [id number]. Villa Yanes MANUAL DIFF REQ NO Normal [facility] Comment on above: Performed By: #### C BC ####[facility] Ofteayccze[address] [place] [id number]. Brooklynkaren Yanes MCH (RBC) [Entitic mass] 31.3 pg Normal 25.9-34.0 [facility] Comment on above: Performed By: #### C BC ####[facility] [address] [place] [address]Dr. Villa Yanes MCHC (RBC) [Mass/Vol] 33.2 g/dL Normal 29.9-35.2 [facility] Comment on above: Performed By: #### C BC ####[facility] [address] [place] [address]Dr. Brooklynkaren Yanes MCV (RBC) [Entitic vol] 94.1 fL Critically high 80.0-94.0 [facility] Comment on above: Performed By: #### C BC ####[facility] [address] [place], [place] [address]Dr. Villa Yanes MONO # 0.9 103/ul Critically high 0.3-0.8 [facility] Comment on above: Performed By: #### C BC ####[facility] [address]ffsvj[address] [place] [address]Dr. Brooklynkaren Yanes Monocytes/100 WBC (Bld) 5.9 % Normal 1.7-12.0 [facility] Comment on above: Performed By: #### C BC ####[facility] U[address] [place], [place] [id number]. Villa Yanes NEUT # 12.0 103/ul Critically high 1.4-6.5 [facility] Comment on above: Performed By: #### C BC ####[facility] [address] [place] [id number]. Villa Yanes Neutrophils/100 WBC (Bld) 76.2 % Critically high 43.0-75.0 [facility] Comment on above: Performed By: #### C BC ####[facility] [address] [place] [id number]. Villa Yanes Platelet mean volume (Bld) [Entitic vol] 9.8 fL Normal 9.5-13.5 [facility] Comment on above: Performed By: #### C BC ####[facility] [address]xixiuxp[address] [place] [address]Dr. Villa Yanes PLT 397 103/ul Normal 150-450 [facility] Comment on above: Performed By: #### C BC ####[facility] Sudy[address]wdsy[address] [place] [address]Dr. Villa Yanes RBC 3.55 106/ul Critically low 4.70-6.10 [facility] Comment on above: Performed By: #### C BC ####[facility] Omyoioovln[address] [place] [address]Dr. Villa Yanes WBC 15.7 103/ul Critically high 4.0-11.0 [facility] Comment on above: Performed By: #### C BC ####[facility] X[address]zdybbuho[address] [place] [id number]. Villa Yanes GLYCOHEMOGLOBIN A1Con 2021 ADA RECOMMENDATION SEE BELOW Normal The [facility] Comment on above: Result Comment: ADA RECOMMENDED LIMIT 4.0 - 6.0 ADA THERAPEUTIC TARGET < 7.0 ACTION SUGGESTED > 7.0 Performed By: #### A 1C ####[facility] [address]ub[address] [place] [address]Dr. Villa Yanes Glucose [Mass/Vol] 134 mg/dL Normal [facility] Comment on above: Performed By: #### A 1C ####[facility] [address]zr[address] [place] [id number]. Villa Yanes HbA1c (Bld) [Mass fraction] 6.3 % Critically high 4.5-6.2 [facility] Comment on above: Performed By: #### A 1C ####[facility] Jimxdgrdtl[address] [place] [address]Dr. Villa Yanes MAGNESIUMon 12-18-2021 Magnesium [Mass/Vol] 2.2 mg/dL Normal 1.8-2.4 [facility] Comment on above: Performed By: #### M Arabella, PHOS, TSH, CMP ####[facility] Yuz[address]weswj[address] [place] [address]Dr. Villa Yanes PHOSPHORUSon 12-18-2021 Phosphate [Mass/Vol] 3.6 mg/dL Normal 2.6-4.7 [facility] Comment on above: Performed By: #### Dick Bell, PHOS, TSH, CMP ####[facility] Lcqkkpkqmg[address] [place] [address]Dr. Villa Yanes PROF 14(COMP METB)on 022 Albumin [Mass/Vol] 3.2 g/dL Critically low 3.4-5.0 [facility] Comment on above: Performed By: #### Dick Bell, PHOS, TSH, CMP ####[facility] Vzjsengvpv[address] [place] [address]Dr. Villa Yanes Albumin/Globulin [Mass ratio] 0.8 {ratio} Normal [facility] Comment on above: Performed By: #### Dick Bell, PHOS, TSH, CMP ####[facility] Rzrfibssvj[address] [place] [address]Dr. Villa Yanes ALP [Catalytic activity/Vol] 141 U/L Critically high 46-116 [facility] Comment on above: Performed By: #### Dick Bell, PHOS, TSH, CMP ####[facility] Ivrikqlqgz[address] [place] [address]Dr. Villa Yanes ALT [Catalytic activity/Vol] 8 U/L Critically low 16-63 [facility] Comment on above: Performed By: #### Dick G, PHOS, TSH, CMP ####[facility] Jmzykxouhf[address] [place] [address]Dr. Villa Yanes Anion gap [Moles/Vol] 13.1 mmol/L Normal Th e [facility] Comment on above: Performed By: #### Dick Bell, PHOS, TSH, CMP ####[facility] Fsf[address]ib[address] [place], [place] [address]Dr. Villa Yanes AST [Catalytic activity/Vol] 5 U/L Critically low 15-37 [facility] Comment on above: Performed By: #### Dick Bell, PHOS, TSH, CMP ####[facility] Mdzcjdjqyq[address] [place], [place] [address]Dr. Villa Yanes Bilirubin [Mass/Vol] 0.3 mg/dL Normal 0.2-1.0 [facility] Comment on above: Performed By: #### Dick Bell, PHOS, TSH, CMP ####[facility] [address] [place], [place] [address]Dr. Villa Yanes Calcium [Mass/Vol] 9.3 mg/dL Normal 8.5-10.1 [facility] Comment on above: Performed By: #### Dick Bell, PHOS, TSH, CMP ####[facility] [address] [place], [place] [address]Dr. Villa Yanes Chloride [Moles/Vol] 102 mmol/L Normal 98-107 [facility] Comment on above: Performed By: #### Dick Bell, PHOS, TSH, CMP ####[facility] Nrkpadavrc[address] [place], [place] [address]Dr. Villa Yanes CO2 [Moles/Vol] 28.8 mmol/L Normal 21.0-32.0 [facility] Comment on above: Performed By: #### Dick Bell, PHOS, TSH, CMP ####[facility] [address] [place], [place] [address]Dr. Villa Yanes Creatinine [Mass/Vol] 1.20 mg/dL Normal 0.70-1.30 [facility] Comment on above: Performed By: #### Dick G, PHOS, TSH, CMP ####[facility] Evhp[address]otfr[address] [place], [place] [address]Dr. Villa Yanes EGFR-AF MACEDONIAN >60 Normal >=60 [facility] Comment on above: Performed By: #### M G, PHOS, TSH, CMP ####[facility] [address]lbqbz[address] [place] [address]Dr. Villa Yanes EGFR-NON AF MACEDONIAN 58 mL/min/1.73m2 Critically low >=60 [facility] Comment on above: Performed By: #### M G, PHOS, TSH, CMP ####[facility] Nbylowpqbs[address] [place], [place] [address]Dr. Villa Yanes Globulin (S) [Mass/Vol] 4.0 g/dL Normal [facility] Comment on above: Performed By: #### M G, PHOS, TSH, CMP ####[facility] [address] [place], [place] [address]Dr. Villa Yanes Glucose [Mass/Vol] 143 mg/dL Critically high 74-106 T [facility] Comment on above: Performed By: #### M G, PHOS, TSH, CMP ####[facility] Dbyencufyj[address] [place], [place] [address]Dr. Villa Yanes Potassium [Moles/Vol] 4.9 mmol/L Normal 3.5-5.1 [facility] Comment on above: Performed By: #### M G, PHOS, TSH, CMP ####[facility] R[address]ay[address]ryc[address] [place], [place] [address]Dr. Villa Yanes Protein [Mass/Vol] 7.2 g/dL Normal 6.4-8.2 [facility] Comment on above: Performed By: #### M G, PHOS, TSH, CMP ####[facility] Uewq[address]ru[address] [place], [place] [address]Dr. Villa Yanes Sodium [Moles/Vol] 139 mmol/L Normal 136-145 [facility] Comment on above: Performed By: #### M G, PHOS, TSH, CMP ####[facility] Endjoneyzf[address] [place], [place] [address]Dr. Villa Yanes Urea nitrogen [Mass/Vol] 46.0 mg/dL Critically high 7.0-18.0 [facility] Comment on above: Performed By: #### M G, PHOS, TSH, CMP ####[facility] [address] [place], [place] [address]Ab. Villa Yanes Urea nitrogen/Creatinine [Mass ratio] 38.3 mg/mg Normal [facility] Comment on above: Performed By: #### M G, PHOS, TSH, CMP ####[facility] [address] [place], [place] [address]Oa. Villa Yanes TSHon 12-18-2021 TSH 0.279 uIU/mL Critically low 0.358-3.740 [facility] Comment on above: Performed By: #### M G, PHOS, TSH, CMP ####[facility] [address] [place], [place] [address]Wh. Villa Yanes CNPNon 12-13-2021 CNPN Normal [facility] Bacteria Ur Culton 2 Bacteria identified Cx Nom (U) Abnormal [facility] Comment on above: Performed By: #### 6 30-4 ####[facility] LABCLIA [id number] [address] [place] CNPNon 12-04-2021 CNPN Normal [facility] CT KIDNEY WO/W IVCONon 12-04 Radiology Result ACTIONABLE Abnormal [facility] CNPTOUTREACHon 12-03-2021 CNPTOUTREACH Normal [facility] CT KIDNEY WO/W IVCONon 12-02 CT KIDNEY WO/W IVCON Invalid Interpretation Code [facility] CNOVon 11-27-2021 CNOV Normal [facility] CNPNon 11-27-2021 CNPN Normal [facility] CNPTOUTREACHon 11-27-2021 CNPTOUTREACH Normal [facility] CASE MANAGEMon 11-20-2021 CASE MANAGEM Normal [facility] CBC panel Auto (Bld)on 11-20 Erythrocyte distribution width (RBC) [Ratio] 13.4 % Normal 11.5-15.0 [facility] Comment on above: Order Comment: Speci men Type: BLOOD SPECIMENOrdering Facility: [facility] Address: [address] [place], [place] [address] Performed By: #### 5 8410-2 ####[facility] LABCLIA [id number] [place] [address] [place] Hematocrit (Bld) [Volume fraction] 26.6 % Low 39.0-51.0 [facility] Comment on above: Order Comment: Speci men Type: BLOOD SPECIMENOrdering Facility: [facility] Address: [address] [place], [place] [address] Performed By: #### 5 8410-2 ####[facility] LABIA [id number] [address] [place] Hemoglobin (Bld) [Mass/Vol] 8.9 g/dL Low 13.0-17.0 [facility] Comment on above: Order Comment: Speci men Type: BLOOD SPECIMENOrdering Facility: [facility] Address: [address] [place], [place] [address] Performed By: #### 5 8410-2 ####[facility] LABIA [id number] [place] [address] [place] MCH (RBC) [Entitic mass] 30.9 pg Normal 26.0-34.0 [facility] Comment on above: Order Comment: Speci men Type: BLOOD SPECIMENOrdering Facility: [facility] Address: [address] [place], [place] [address] Performed By: #### 5 8410-2 ####[facility] LABCLIA [id number] [place] [address] [place] MCHC (RBC) [Mass/Vol] 33.5 g/dL Normal 30.5-36.0 [facility] Comment on above: Order Comment: Speci men Type: BLOOD SPECIMENOrdering Facility: [facility] Address: [address] [place], [place] [address] Performed By: #### 5 8410-2 ####[facility] LABCLIA [id number] [place] [address] [place] MCV (RBC) [Entitic vol] 92.4 fL Normal 80.0-100.0 [facility] Comment on above: Order Comment: Speci men Type: BLOOD SPECIMENOrdering Facility: [facility] Address: [address] [place], [place] [address] Performed By: #### 5 8410-2 ####[facility] LABIA [id number] [address] [place] Nucleated RBC (Bld) [#/Vol] 10*3/uL Normal <0.01 [facility] Comment on above: Order Comment: Speci men Type: BLOOD SPECIMENOrdering Facility: [facility] Address: [address] [place], [place] [address] Performed By: #### 5 8410-2 ####[facility] LABIA [id number] [address] [place] Platelet mean volume (Bld) [Entitic vol] 10.4 fL Normal 9.0-12.7 [facility] Comment on above: Order Comment: Speci men Type: BLOOD SPECIMENOrdering Facility: [facility] Address: [address] [place], [place] [address] Performed By: #### 5 8410-2 ####[facility] LABIA [id number] [place] [address] [place] Platelets (Bld) [#/Vol] 240 10*3/uL Normal 150-400 [facility] Comment on above: Order Comment: Speci men Type: BLOOD SPECIMENOrdering Facility: [facility] Address: [address] [place], [place] [address] Performed By: #### 5 8410-2 ####[facility] LABCLIA [id number] [place] [address] [place] RBC (Bld) [#/Vol] 2.88 10*6/uL Low 4.20-6.00 [place] Comment on above: Order Comment: Speci men Type: BLOOD SPECIMENOrdering Facility: [facility] Address: [address] [place] [address] Performed By: #### 5 8410-2 ####[facility] LABCLIA [id number] [place] [address] [place] WBC (Bld) [#/Vol] 9.03 10*3/uL Normal 3.70-11.00 [place] Comment on above: Order Comment: Speci men Type: BLOOD SPECIMENOrdering Facility: [facility] Address: [address] [place] [address] Performed By: #### 5 8410-2 ####[facility] LABCLIA [id number] [place] [address] [place] CNDSon 11-20-2021 CNDS Normal [facility] CNPNon 11-20-2021 CNPN Normal [facility] Magnesium SerPl-mCncon 11-20 Magnesium [Mass/Vol] 2.1 mg/dL Normal 1.7-2.3 [facility] Comment on above: Order Comment: Speci men Type: BLOOD SPECIMENOrdering Facility: [facility] Address: [address] [place] [address] Performed By: #### 2 4362-6, 94908-6 ####[facility] LABCLIA [id number] [place] [address] [place] NURSING PROGon 11-20-2021 NURSING PROG Normal [facility] Renal function 2000 panelon 11-20-2021 Albumin [Mass/Vol] 2.5 g/dL Low 3.9-4.9 [facility] Comment on above: Order Comment: Speci men Type: BLOOD SPECIMENOrdering Facility: [facility] Address: [address] [place], [place] [address] Performed By: #### 2 4362-6 ####[facility] LABCLIA [id number] [facility] [place] [address] [place] Anion gap [Moles/Vol] 6 mmol/L Low 9-18 [facility] Comment on above: Order Comment: Speci men Type: BLOOD SPECIMENOrdering Facility: [facility] Address: [address] [place], [place] [address] Performed By: #### 2 4362-6 ####[facility] LABCLIA [id number] [facility] [place] [address] [place] Calcium [Mass/Vol] 7.9 mg/dL Low 8.5-10.2 [facility] Comment on above: Order Comment: Speci men Type: BLOOD SPECIMENOrdering Facility: [facility] Address: [address] [place], [place] [address] Performed By: #### 2 4362-6 ####[facility] LABCLIA [id number] [place] [address] [place] Chloride [Moles/Vol] 101 mmol/L Normal 97-105 [facility] Comment on above: Order Comment: Speci men Type: BLOOD SPECIMENOrdering Facility: [facility] Address: [address] [place] [address] Performed By: #### 2 4362-6 ####[facility] LABCLIA [id number] [place] [address] [place] CO2 [Moles/Vol] 30 mmol/L Normal 22-30 [facility] Comment on above: Order Comment: Speci men Type: BLOOD SPECIMENOrdering Facility: [facility] Address: [address] [place] [address] Performed By: #### 2 4362-6 ####[facility] LABCLIA [id number] [place] [address] [place] Creatinine [Mass/Vol] 1.15 mg/dL Normal 0.73-1.22 [facility] Comment on above: Order Comment: Misbah padilla Type: BLOOD SPECIMENOrdering Facility: [facility] Address: [address] [place] [id number] Performed By: #### 2 4362-6 ####[facility] LABCLIA [id number] [place] [address] [place] ESTIMATED GLOMERULAR FILTRATION RATE 65 mL/min/1.73m??? Normal >=60 [facility] Comment on above: Order Comment: Misbah padilla Type: BLOOD SPECIMENOrdering Facility: [facility] Address: [address] Result Comment: Sandra mated Glomerular Filtration [...] actual GFR. Performed By: #### 2 4362-6 ####[facility] LABCLIA [id number] [place] [address] [place] Glucose [Mass/Vol] 135 mg/dL High 74-99 [facility] Comment on above: Order Comment: Misbah valerie Type: BLOOD SPECIMENOrdering Facility: [facility] Address: [address] Result Comment: The [place] Diabetes Association (ADA) provides guidance for cutoff [...] Standards of Medical Care in Diabetes 2016, [place] Diabetes Association. Diabetes Care. 2016.39(Suppl 1). Performed By: #### 2 4362-6 ####[facility] LABCLIA [id number] [place] [address] [place] Phosphate [Mass/Vol] 3.8 mg/dL Normal 2.7-4.8 [facility] Comment on above: Order Comment: Speci men Type: BLOOD SPECIMENOrdering Facility: [facility] Address: [address] [place], [place] [address] Performed By: #### 2 4362-6 ####[facility] LABIA [id number] [place] [address] [place] Potassium [Moles/Vol] 4.1 mmol/L Normal 3.7-5.1 [facility] Comment on above: Order Comment: Speci men Type: BLOOD SPECIMENOrdering Facility: [facility] Address: [address] [place] [address] Performed By: #### 2 4362-6 ####[facility] LABIA [id number] [place] [address] [place] Sodium [Moles/Vol] 137 mmol/L Normal 136-144 [facility] Comment on above: Order Comment: Speci men Type: BLOOD SPECIMENOrdering Facility: [facility] Address: [address] [place], [place] [address] Performed By: #### 2 4362-6 ####[facility] LABIA [id number] [place] [address] [place] Urea nitrogen [Mass/Vol] 17 mg/dL Normal 9-24 [facility] Comment on above: Order Comment: Speci men Type: BLOOD SPECIMENOrdering Facility: [facility] Address: [address] [place] [address] Performed By: #### 2 4362-6 ####[facility] LABIA [id number] [place] [address] [place] Albumin [Mass/Vol] 2.5 g/dL Low 3.9-4.9 [facility] Comment on above: Order Comment: Speci men Type: BLOOD SPECIMENOrdering Facility: [facility] Address: [address] [place], [place] [address] Performed By: #### 2 4362-6, ####[facility] LABCLIA [id number] [place] [address] [place] Anion gap [Moles/Vol] 7 mmol/L Low 9-18 [facility] Comment on above: Order Comment: Speci men Type: BLOOD SPECIMENOrdering Facility: [facility] Address: [address] [place], [place] [address] Performed By: #### 2 4362-6, ####[facility] LABCLIA [id number] [place] [address] [place] Calcium [Mass/Vol] 8.2 mg/dL Low 8.5-10.2 [facility] Comment on above: Order Comment: Speci men Type: BLOOD SPECIMENOrdering Facility: [facility] Address: [address] [place], [place] [address] Performed By: #### 2 4362-6, ####[facility] LABCLIA [id number] [place] [address] [place] Chloride [Moles/Vol] 104 mmol/L Normal 97-105 [facility] Comment on above: Order Comment: Speci men Type: BLOOD SPECIMENOrdering Facility: [facility] Address: [address] [place], [place] [address] Performed By: #### 2 4362-6, ####[facility] LABCLIA [id number] [place] [address] [place] CO2 [Moles/Vol] 28 mmol/L Normal 22-30 [facility] Comment on above: Order Comment: Speci men Type: BLOOD SPECIMENOrdering Facility: [facility] Address: [address] [place], [place] [address] Performed By: #### 2 4362-6, ####[facility] LABCLIA [id number] [place] [address] [place] Creatinine [Mass/Vol] 1.22 mg/dL Normal 0.73-1.22 [facility] Comment on above: Order Comment: Speci men Type: BLOOD SPECIMENOrdering Facility: [facility] Address: [address] [place], [place] [address] Performed By: #### 2 4362-6, ####[facility] LABIA [id number] [place] [address] [place] ESTIMATED GLOMERULAR FILTRATION RATE 60 mL/min/1.73m??? Normal >=60 [facility] Comment on above: Order Comment: Speci men Type: BLOOD SPECIMENOrdering Facility: [facility] Address: [address] [place], [place] [address] Result Comment: Sandra mated Glomerular Filtration Rate [...] actual GFR. Performed By: #### 2 4362-6, ####[facility] LABIA [id number] [place] [address] [place] Glucose [Mass/Vol] 177 mg/dL High 74-99 [facility] Comment on above: Order Comment: Speci men Type: BLOOD SPECIMENOrdering Facility: [facility] Address: [address] [place], [place] [address] Result Comment: The [place] Diabetes Association (ADA) provides guidance for cutoff [...] Standards of Medical Care in Diabetes 2016, [place] Diabetes Association. Diabetes Care. 2016.39(Suppl 1). Performed By: #### 2 4362-6, ####[facility] LABIA [id number] [place] [address] [place] Phosphate [Mass/Vol] 2.0 mg/dL Low 2.7-4.8 [facility] Comment on above: Order Comment: Speci men Type: BLOOD SPECIMENOrdering Facility: [facility] Address: [address] [place], [place] [address] Performed By: #### 2 4362-6, ####[facility] LABIA [id number] [place] [address] [place] Potassium [Moles/Vol] 3.8 mmol/L Normal 3.7-5.1 [facility] Comment on above: Order Comment: Speci men Type: BLOOD SPECIMENOrdering Facility: [facility] Address: [address] [place], [place] [address] Performed By: #### 2 4362-6, ####[facility] LABIA [id number] [place] [address] [place] Sodium [Moles/Vol] 139 mmol/L Normal 136-144 [facility] Comment on above: Order Comment: Speci men Type: BLOOD SPECIMENOrdering Facility: [facility] Address: [address] [place], [place] [address] Performed By: #### 2 4362-6, ####[facility] LABCLIA [id number] [place] [address] [place] Urea nitrogen [Mass/Vol] 16 mg/dL Normal 9-24 [facility] Comment on above: Order Comment: Speci men Type: BLOOD SPECIMENOrdering Facility: [facility] Address: [address] [place], [place] [address] Performed By: #### 2 4362-6, ####[facility] LABCLIA [id number] [place] [address] [place] THERAPY NTon 11-20-2021 THERAPY NT Normal [facility] CASE MANAGEMon 11-19-2021 CASE MANAGEM Normal [facility] CBC panel Auto (Bld)on 11-19 Erythrocyte distribution width (RBC) [Ratio] 13.3 % Normal 11.5-15.0 [facility] Comment on above: Order Comment: Speci men Type: BLOOD SPECIMENOrdering Facility: [facility] Address: [address] [place], [place] [address] Performed By: #### 5 8410-2 ####[facility] LABIA [id number] [place] [address] [place] Hematocrit (Bld) [Volume fraction] 28.3 % Low 39.0-51.0 [facility] Comment on above: Order Comment: Speci men Type: BLOOD SPECIMENOrdering Facility: [facility] Address: [address] [place], [place] [address] Performed By: #### 5 8410-2 ####[facility] LABCLIA [id number] [place] [address] [place] Hemoglobin (Bld) [Mass/Vol] 9.1 g/dL Low 13.0-17.0 [facility] Comment on above: Order Comment: Speci men Type: BLOOD SPECIMENOrdering Facility: [facility] Address: [address] [place] [address] Performed By: #### 5 8410-2 ####[facility] LABIA [id number] [address] STATES [facility] MCH (RBC) [Entitic mass] 30.2 pg Normal 26.0-34.0 [facility] Comment on above: Order Comment: Speci men Type: BLOOD SPECIMENOrdering Facility: [facility] Address: [address] [place], [place] [address] Performed By: #### 5 8410-2 ####[facility] LABIA [id number] [address] MCHC (RBC) [Mass/Vol] 32.2 g/dL Normal 30.5-36.0 [facility] Comment on above: Order Comment: Speci men Type: BLOOD SPECIMENOrdering Facility: [facility] Address: [address] [place], [place] [address] Performed By: #### 5 8410-2 ####[facility] LABIA [id number] [address] [place] MCV (RBC) [Entitic vol] 94.0 fL Normal 80.0-100.0 [facility] Comment on above: Order Comment: Speci men Type: BLOOD SPECIMENOrdering Facility: [facility] Address: [address] [place] [address] Performed By: #### 5 8410-2 ####[facility] LABIA [id number] [address] [place] Nucleated RBC (Bld) [#/Vol] 10*3/uL Normal <0.01 [facility] Comment on above: Order Comment: Speci men Type: BLOOD SPECIMENOrdering Facility: [facility] Address: [address] [place], [place] [address] Performed By: #### 5 8410-2 ####[facility] LABCLIA [id number] [place] [address] [place] Platelet mean volume (Bld) [Entitic vol] 10.2 fL Normal 9.0-12.7 [facility] Comment on above: Order Comment: Speci men Type: BLOOD SPECIMENOrdering Facility: [facility] Address: [address] [place], [place] [address] Performed By: #### 5 8410-2 ####[facility] LABIA [id number] [place] [address] [place] Platelets (Bld) [#/Vol] 262 10*3/uL Normal 150-400 [facility] Comment on above: Order Comment: Speci men Type: BLOOD SPECIMENOrdering Facility: [facility] Address: [address] [place], [place] [address] Performed By: #### 5 8410-2 ####[facility] LABIA [id number] [place] [address] [place] RBC (Bld) [#/Vol] 3.01 10*6/uL Low 4.20-6.00 [place] Comment on above: Order Comment: Speci men Type: BLOOD SPECIMENOrdering Facility: [facility] Address: [address] [place] [address] Performed By: #### 5 8410-2 ####[facility] LABIA [id number] [place] [address] [place] WBC (Bld) [#/Vol] 9.65 10*3/uL Normal 3.70-11.00 [place] Comment on above: Order Comment: Speci men Type: BLOOD SPECIMENOrdering Facility: [facility] Address: [address] [place], [place] [address] Performed By: #### 5 8410-2 ####[facility] LABIA [id number] [place] [address] [place] Magnesium SerPl-mCncon 06-29 -2022 Magnesium [Mass/Vol] 2.2 mg/dL Normal 1.7-2.3 [facility] Comment on above: Order Comment: Speci men Type: BLOOD SPECIMENOrdering Facility: [facility] Address: [address] [place] [address] Performed By: #### 1 9123-9, 60860-0 ####[facility] LABCLIA [id number] [place] [address] [place] NUTRITIONon 11-19-2021 NUTRITION Normal [facility] PT EDon 11-19-2021 PT ED Normal [facility] Renal function 2000 panelon 11-19-2021 Albumin [Mass/Vol] 2.4 g/dL Low 3.9-4.9 [facility] Comment on above: Order Comment: Speci men Type: BLOOD SPECIMENOrdering Facility: [facility] Address: [address] [place] [address] Performed By: #### 1 9123-9, 02868-0 ####[facility] LABCLIA [id number] [place] [address] [place] Anion gap [Moles/Vol] 7 mmol/L Low 9-18 [facility] Comment on above: Order Comment: Speci men Type: BLOOD SPECIMENOrdering Facility: [facility] Address: [address] [place], [place] [address] Performed By: #### 1 9123-9, 74044-8 ####[facility] LABCLIA [id number] [facility] [place] [address] [place] Calcium [Mass/Vol] 8.5 mg/dL Normal 8.5-10.2 [facility] Comment on above: Order Comment: Speci men Type: BLOOD SPECIMENOrdering Facility: [facility] Address: [address] [place], [place] [address] Performed By: #### 1 9123-9, 65334-2 ####[facility] LABCLIA [id number] [place] [address] [place] Chloride [Moles/Vol] 105 mmol/L Normal 97-105 [facility] Comment on above: Order Comment: Speci men Type: BLOOD SPECIMENOrdering Facility: [facility] Address: [address] [place] [address] Performed By: #### 1 9123-9, 82866-0 ####[facility] LABCLIA [id number] [place] [address] [place] CO2 [Moles/Vol] 27 mmol/L Normal 22-30 [facility] Comment on above: Order Comment: Speci men Type: BLOOD SPECIMENOrdering Facility: [facility] Address: [address] [place] [address] Performed By: #### 1 9123-9, 93443-7 ####[facility] LABIA [id number] [address] STATES OF [facility] Creatinine [Mass/Vol] 1.22 mg/dL Normal 0.73-1.22 [facility] Comment on above: Order Comment: Speci men Type: BLOOD SPECIMENOrdering Facility: [facility] Address: [address] [place] [address] Performed By: #### 1 9123-9, 78301-3 ####[facility] LABIA [id number] [address] OF [facility] ESTIMATED GLOMERULAR FILTRATION RATE 60 mL/min/1.73m??? Normal >=60 [facility] Comment on above: Order Comment: Speci men Type: BLOOD SPECIMENOrdering Facility: [facility] Address: [address] [place] [address] Result Comment: Sandra mated Glomerular Filtration Rate [...] actual GFR. Performed By: #### 1 9123-9, 07510-0 ####[facility] LABCLIA [id number] [address] [address] [place] Glucose [Mass/Vol] 146 mg/dL High 74-99 [facility] Comment on above: Order Comment: Misbah padilla Type: BLOOD SPECIMENOrdering Facility: [facility] Address: [address] [place] [address] Result Comment: The [place] Diabetes Association (ADA) provides guidance for cutoff [...] Standards of Medical Care in Diabetes 2016, [place] Diabetes Association. Diabetes Care. 2016.39(Suppl 1). Performed By: #### 1 9123-9, 80323-5 ####[facility] LABCLIA [id number] [address] [address] [place] Phosphate [Mass/Vol] 3.0 mg/dL Normal 2.7-4.8 [facility] Comment on above: Order Comment: Misbah padilla Type: BLOOD SPECIMENOrdering Facility: [facility] Address: [address] [place] [address] Performed By: #### 1 9123-9, 58467-5 ####[facility] LABIA [id number] [address] [address] [place] Potassium [Moles/Vol] 4.1 mmol/L Normal 3.7-5.1 [facility] Comment on above: Order Comment: Speci men Type: BLOOD SPECIMENOrdering Facility: [facility] Address: [address] [place], [place] [address] Performed By: #### 1 9123-9, 73669-9 ####[facility] LABCLIA [id number] [place] [address] [place] Sodium [Moles/Vol] 139 mmol/L Normal 136-144 [facility] Comment on above: Order Comment: Speci men Type: BLOOD SPECIMENOrdering Facility: [facility] Address: [address] [place], [place] [address] Performed By: #### 1 9123-9, 92851-2 ####[facility] LABCLIA [id number] [address] [place] Urea nitrogen [Mass/Vol] 10 mg/dL Normal 9-24 [facility] Comment on above: Order Comment: Speci men Type: BLOOD SPECIMENOrdering Facility: [facility] Address: [address] [place], [place] [address] Performed By: #### 1 9123-9, 53468-2 ####[facility] LABCLIA [id number] [place] [address] [place] THERAPY NTon 11-19-2021 THERAPY NT Normal [facility] CASE MANAGEMon 11-18-2021 CASE MANAGEM Normal [facility] CBC panel Auto (Bld)on 11-18 Erythrocyte distribution width (RBC) [Ratio] 13.4 % Normal 11.5-15.0 [facility] Comment on above: Order Comment: Speci men Type: BLOOD SPECIMENOrdering Facility: [facility] Address: [address] [place], [place] [address] Performed By: #### 5 8410-2 ####[facility] LABCLIA [id number] [address] [place] Hematocrit (Bld) [Volume fraction] 28.5 % Low 39.0-51.0 [facility] Comment on above: Order Comment: Speci men Type: BLOOD SPECIMENOrdering Facility: [facility] Address: [address] [place] [address] Performed By: #### 5 8410-2 ####[facility] LABCLIA [id number] [place] [address] [place] Hemoglobin (Bld) [Mass/Vol] 9.0 g/dL Low 13.0-17.0 [facility] Comment on above: Order Comment: Speci men Type: BLOOD SPECIMENOrdering Facility: [facility] Address: [address] [place] [address] Performed By: #### 5 8410-2 ####[facility] LABCLIA [id number] [place] [address] [place] MCH (RBC) [Entitic mass] 30.4 pg Normal 26.0-34.0 [facility] Comment on above: Order Comment: Speci men Type: BLOOD SPECIMENOrdering Facility: [facility] Address: [address] [place] [address] Performed By: #### 5 8410-2 ####[facility] LABIA [id number] [place] [address] [place] MCHC (RBC) [Mass/Vol] 31.6 g/dL Normal 30.5-36.0 [facility] Comment on above: Order Comment: Speci men Type: BLOOD SPECIMENOrdering Facility: [facility] Address: [address] [place], [place] [address] Performed By: #### 5 8410-2 ####[facility] LABCLIA [id number] [place] [address] [place] MCV (RBC) [Entitic vol] 96.3 fL Normal 80.0-100.0 [facility] Comment on above: Order Comment: Speci men Type: BLOOD SPECIMENOrdering Facility: [facility] Address: [address] [place], [place] [address] Performed By: #### 5 8410-2 ####[facility] LABIA [id number] [place] [address] [place] [facility] Nucleated RBC (Bld) [#/Vol] 10*3/uL Normal <0.01 [facility] Comment on above: Order Comment: Speci men Type: BLOOD SPECIMENOrdering Facility: [facility] Address: [address] [place], [place] [address] Performed By: #### 5 8410-2 ####[facility] [id number] [place] [address] [place] Platelet mean volume (Bld) [Entitic vol] 10.3 fL Normal 9.0-12.7 [facility] Comment on above: Order Comment: Speci men Type: BLOOD SPECIMENOrdering Facility: [facility] Address: [address] [place], [place] [address] Performed By: #### 5 8410-2 ####[facility] LABIA [id number] [address] [place] Platelets (Bld) [#/Vol] 228 10*3/uL Normal 150-400 [facility] Comment on above: Order Comment: Speci men Type: BLOOD SPECIMENOrdering Facility: [facility] Address: [address] [place] [address] Performed By: #### 5 8410-2 ####[facility] LABIA [id number] [place] [address] [place] RBC (Bld) [#/Vol] 2.96 10*6/uL Low 4.20-6.00 [place] Comment on above: Order Comment: Speci men Type: BLOOD SPECIMENOrdering Facility: [facility] Address: [address] [place], [place] [address] Performed By: #### 5 8410-2 ####[facility] LABCLIA [id number] [place] [address] [place] WBC (Bld) [#/Vol] 8.72 10*3/uL Normal 3.70-11.00 [place] Comment on above: Order Comment: Speci men Type: BLOOD SPECIMENOrdering Facility: [facility] Address: [address] [place] [address] Performed By: #### 5 8410-2 ####[facility] LABCLIA [id number] [place] [address] [place] Magnesium SerPl-[facility] 11-18 Magnesium [Mass/Vol] 1.7 mg/dL Normal 1.7-2.3 [facility] Comment on above: Order Comment: Speci men Type: BLOOD SPECIMENOrdering Facility: [facility] Address: [address] [place], [place] [address] Performed By: #### 1 9123-9, 2777-1, 36694-2 ####[facility] LABIA [id number] [place] [address] [place] NURSING PROGon 11-18-2021 NURSING PROG Normal [facility] Phosphate SerPl-mCncon 11-18 Phosphate [Mass/Vol] 3.7 mg/dL Normal 2.7-4.8 [facility] Comment on above: Order Comment: Speci men Type: BLOOD SPECIMENOrdering Facility: [facility] Address: [address] [place] [address] Performed By: #### 1 9123-9, 2777-1, 85230-2 ####[facility] LABIA [id number] [place] [address] [place] Renal function 2000 panelon 11-18-2021 Albumin [Mass/Vol] 2.2 g/dL Low 3.9-4.9 [facility] Comment on above: Order Comment: Speci men Type: BLOOD SPECIMENOrdering Facility: [facility] Address: [address] [place], [place] [address] Performed By: #### 1 9123-9, 2777-, 49018-5 ####[facility] LABCLIA [id number] [place] [address] [place] Anion gap [Moles/Vol] 11 mmol/L Normal 9-18 [facility] Comment on above: Order Comment: Speci men Type: BLOOD SPECIMENOrdering Facility: [facility] Address: [address] [place], [place] [address] Performed By: #### 1 9123-9, 2777-1, 06048-0 ####[facility] LABCLIA [id number] [place] [address] [place] Calcium [Mass/Vol] 8.9 mg/dL Normal 8.5-10.2 [facility] Comment on above: Order Comment: Speci men Type: BLOOD SPECIMENOrdering Facility: [facility] Address: [address] [place], [place] [address] Performed By: #### 1 9123-9, 2777-, 51706-0 ####[facility] LABCLIA [id number] [place] [address] [place] Chloride [Moles/Vol] 107 mmol/L High 97-105 [facility] Comment on above: Order Comment: Speci men Type: BLOOD SPECIMENOrdering Facility: [facility] Address: [address] [place], [place] [address] Performed By: #### 1 9123-9, 2777-1, 77174-5 ####[facility] LABCLIA [id number] [place] [id number] [place] CO2 [Moles/Vol] 23 mmol/L Normal 22-30 [facility] Comment on above: Order Comment: Speci men Type: BLOOD SPECIMENOrdering Facility: [facility] Address: [address] [place] [id number] Performed By: #### 1 9123-9, 2777-, 06731-0 ####[facility] LABIA [id number] [place] [address] [place] Creatinine [Mass/Vol] 1.14 mg/dL Normal 0.73-1.22 [facility] Comment on above: Order Comment: Speci men Type: BLOOD SPECIMENOrdering Facility: [facility] Address: [address] [place], [place] [address] Performed By: #### 1 9123-9, 2777-, 61729-3 ####[facility] [id number] [place] [address] [place] ESTIMATED GLOMERULAR FILTRATION RATE 65 mL/min/1.73m??? Normal >=60 [facility] Comment on above: Order Comment: Speci men Type: BLOOD SPECIMENOrdering Facility: [facility] Address: [address] [place] [address] Result Comment: Sandra mated Glomerular Filtration Rate [...] GFR. Performed By: #### 1 9123-9, 2777-, 34295-8 ####[facility] LABIA [id number] [place] [id number] [place] Glucose [Mass/Vol] 89 mg/dL Normal 74-99 [facility] Comment on above: Order Comment: Speci men Type: BLOOD SPECIMENOrdering Facility: [facility] Address: [address] [place], [place] [address] Result Comment: The [place] Diabetes Association (ADA) provides guidance for cutoff [...] Standards of Medical Care in Diabetes 2016, [place] Diabetes Association. Diabetes Care. 2016.39(Suppl 1). Performed By: #### 1 9123-9, 2777-1, 08689-6 ####[facility] LABIA [id number] [place] [address] [place] Phosphate [Mass/Vol] 3.8 mg/dL Normal 2.7-4.8 [facility] Comment on above: Order Comment: Speci men Type: BLOOD SPECIMENOrdering Facility: [facility] Address: [address] [place] [address] Performed By: #### 1 9123-9, 2777-1, 09517-2 ####[facility] LABIA [id number] [place] [address] [place] Potassium [Moles/Vol] 4.2 mmol/L Normal 3.7-5.1 [facility] Comment on above: Order Comment: Speci men Type: BLOOD SPECIMENOrdering Facility: [facility] Address: [address] [place], [place] [address] Performed By: #### 1 9123-9, 2777-1, 29312-4 ####[facility] LABIA [id number] [place] [address] [place] Sodium [Moles/Vol] 141 mmol/L Normal 136-144 [facility] Comment on above: Order Comment: Speci men Type: BLOOD SPECIMENOrdering Facility: [facility] Address: [address] Performed By: #### 1 9123-9, 2777-1, 82116-9 ####[facility] LABCLIA [id number] [place] [address] [place] Urea nitrogen [Mass/Vol] 5 mg/dL Low 9-24 [facility] Comment on above: Order Comment: Speci men Type: BLOOD SPECIMENOrdering Facility: [facility] Address: [address] [place] [address] Performed By: #### 1 9123-9, 2777-1, 83222-4 ####[facility] LABIA [id number] [place] [address] [place] THERAPY NTon 11-18-2021 THERAPY NT Normal [facility] XR ABDOMEN 1V SUPINEon 11-18 XR ABDOMEN 1V SUPINE [facility] XR ABDOMEN 1V SUPINE Normal [facility] ANES POSTPROC EVALon 022 ANES POSTPROC EVAL Normal [facility] ANES PRE-OPon 11-17-2021 ANES PRE-OP Normal [facility] BRIEF OP NOTon 11-17-2021 BRIEF OP NOT Normal [facility] CASE MANAGEMon 11-17-2021 CASE MANAGEM Normal [facility] CBC panel Auto (Bld)on 11-17 Erythrocyte distribution width (RBC) [Ratio] 13.4 % Normal 11.5-15.0 [facility] Comment on above: Order Comment: Speci men Type: BLOOD SPECIMENOrdering Facility: [facility] Address: [address] [place], [place] [address] Performed By: #### 5 8410-2 ####[facility] LABIA [id number] [place] [address] [place] Hematocrit (Bld) [Volume fraction] 24.8 % Low 39.0-51.0 [facility] Comment on above: Order Comment: Speci men Type: BLOOD SPECIMENOrdering Facility: [facility] Address: [address] [place] [id number] Performed By: #### 5 8410-2 ####[facility] LABIA [id number] [place] [address] [place] Hemoglobin (Bld) [Mass/Vol] 8.0 g/dL Low 13.0-17.0 [facility] Comment on above: Order Comment: Speci men Type: BLOOD SPECIMENOrdering Facility: [facility] Address: [address] [place], [place] [address] Performed By: #### 5 8410-2 ####[facility] LABIA [id number] [address] [place] MCH (RBC) [Entitic mass] 30.2 pg Normal 26.0-34.0 [facility] Comment on above: Order Comment: Speci men Type: BLOOD SPECIMENOrdering Facility: [facility] Address: [address] [place], [place] [address] Performed By: #### 5 8410-2 ####[facility] LABIA [id number] [address] [place] MCHC (RBC) [Mass/Vol] 32.3 g/dL Normal 30.5-36.0 [facility] Comment on above: Order Comment: Speci men Type: BLOOD SPECIMENOrdering Facility: [facility] Address: [address] [place] [address] Performed By: #### 5 8410-2 ####[facility] LABIA [id number] [place] [address] [place] MCV (RBC) [Entitic vol] 93.6 fL Normal 80.0-100.0 [facility] Comment on above: Order Comment: Speci men Type: BLOOD SPECIMENOrdering Facility: [facility] Address: [address] [place], [place] [address] Performed By: #### 5 8410-2 ####[facility] LABIA [id number] [place] [address] [place] Nucleated RBC (Bld) [#/Vol] 10*3/uL Normal <0.01 [facility] Comment on above: Order Comment: Speci men Type: BLOOD SPECIMENOrdering Facility: [facility] Address: [address] [place], [place] [address] Performed By: #### 5 8410-2 ####[facility] [id number] [place] [address] [place] Platelet mean volume (Bld) [Entitic vol] 10.1 fL Normal 9.0-12.7 [facility] Comment on above: Order Comment: Speci men Type: BLOOD SPECIMENOrdering Facility: [facility] Address: [address] [place] [address] Performed By: #### 5 8410-2 ####[facility] [id number] [place] [address] [place] Platelets (Bld) [#/Vol] 235 10*3/uL Normal 150-400 [facility] Comment on above: Order Comment: Speci men Type: BLOOD SPECIMENOrdering Facility: [facility] Address: [address] [place], [place] [address] Performed By: #### 5 8410-2 ####[facility] [id number] [place] [address] [place] RBC (Bld) [#/Vol] 2.65 10*6/uL Low 4.20-6.00 [place] Comment on above: Order Comment: Speci men Type: BLOOD SPECIMENOrdering Facility: [facility] Address: [address] [place] [address] Performed By: #### 5 8410-2 ####[facility] LABIA [id number] [place] [address] [place] WBC (Bld) [#/Vol] 9.08 10*3/uL Normal 3.70-11.00 [place] Comment on above: Order Comment: Speci men Type: BLOOD SPECIMENOrdering Facility: [facility] Address: [address] [place] [address] Performed By: #### 5 8410-2 ####[facility] LABCLIA [id number] [address] OF [facility] OPERATIVE NOon 11-17-2021 OPERATIVE NO Normal [facility] PT panel Coag (PPP)on 2021 INR Coag (PPP) [Relative time] 1.2 {INR} Normal 0.9-1.3 [facility] Comment on above: Order Comment: Misbah valerie Type: BLOOD SPECIMENOrdering Facility: [facility] Address: [address] [place] [address] Result Comment: Pippa min K Antagonist (VKA) Therapeutic Range: INR 2 to 3 (Target INR of 2.5)Note: For patients treated with VKA drugs, such as warfarin, the [place] [employer] Chest [employer]icians 2012 Guideline recommends [...] al. Chest 2012, 141:7S-47SNishimura RA, et al. [facility] 2017, 70: 252-289 Performed By: #### 3 4528-0 ####[facility] LABCLIA [id number] [place] [address] [place] PT Coag (PPP) [Time] 12.1 s Normal 9.7-13.0 [facility] Comment on above: Order Comment: Speci men Type: BLOOD SPECIMENOrdering Facility: [facility] Address: [address] [place], [place] [address] Performed By: #### 3 4528-0 ####[facility] LABCLIA [id number] [place] [address] [place] PTT, ANTICOAGULANT THERAPYon 11-17-2021 aPTT Coag (PPP) [Time] 74.7 s High 23.0-32.4 [facility] Comment on above: Order Comment: Speci men Type: BLOOD SPECIMENOrdering Facility: [facility] Address: [address] [place] [address] Performed By: #### P TTAC ####[facility] LABCLIA [id number] [place] [address] [place] Renal function 2000 panelon 11-17-2021 Albumin [Mass/Vol] 2.3 g/dL Low 3.9-4.9 [facility] Comment on above: Order Comment: Speci men Type: BLOOD SPECIMENOrdering Facility: [facility] Address: [address] [place], [place] [address] Performed By: #### 2 4362-6 ####[facility] LABIA [id number] [place] [address] [place] Anion gap [Moles/Vol] 7 mmol/L Low 9-18 [facility] Comment on above: Order Comment: Speci men Type: BLOOD SPECIMENOrdering Facility: [facility] Address: [address] [place], [place] [address] Performed By: #### 2 4362-6 ####[facility] LABIA [id number] [place] [address] [place] Calcium [Mass/Vol] 8.5 mg/dL Normal 8.5-10.2 [facility] Comment on above: Order Comment: Speci men Type: BLOOD SPECIMENOrdering Facility: [facility] Address: [address] [place], [place] [address] Performed By: #### 2 4362-6 ####[facility] LABCLIA [id number] [place] [address] [place] Chloride [Moles/Vol] 108 mmol/L High 97-105 [facility] Comment on above: Order Comment: Speci men Type: BLOOD SPECIMENOrdering Facility: [facility] Address: [address] [place], [place] [address] Performed By: #### 2 4362-6 ####[facility] LABCLIA [id number] [place] [address] [place] CO2 [Moles/Vol] 25 mmol/L Normal 22-30 [facility] Comment on above: Order Comment: Speci men Type: BLOOD SPECIMENOrdering Facility: [facility] Address: [address] [place], [place] [address] Performed By: #### 2 4362-6 ####[facility] LABIA [id number] [place] [address] [place] Creatinine [Mass/Vol] 1.04 mg/dL Normal 0.73-1.22 [facility] Comment on above: Order Comment: Speci men Type: BLOOD SPECIMENOrdering Facility: [facility] Address: [address] [place], [place] [address] Performed By: #### 2 4362-6 ####[facility] LABIA [id number] [place] [address] [place] ESTIMATED GLOMERULAR FILTRATION RATE 73 mL/min/1.73m??? Normal >=60 [facility] Comment on above: Order Comment: Speci men Type: BLOOD SPECIMENOrdering Facility: [facility] Address: [address] [place], [place] [address] Result Comment: Sandra mated Glomerular Filtration Rate [...] actual GFR. Performed By: #### 2 4362-6 ####[facility] LABCLIA [id number] [address] [address] [place] Glucose [Mass/Vol] 117 mg/dL High 74-99 [facility] Comment on above: Order Comment: Speci men Type: BLOOD SPECIMENOrdering Facility: [facility] Address: [address] [place] [address] Result Comment: The [place] Diabetes Association (ADA) provides guidance for cutoff [...] Standards of Medical Care in Diabetes 2016, [place] Diabetes Association. Diabetes Care. 2016.39(Suppl 1). Performed By: #### 2 4362-6 ####[facility] LABCLIA [id number] [address] [address] [place] Phosphate [Mass/Vol] 3.1 mg/dL Normal 2.7-4.8 [facility] Comment on above: Order Comment: Speci men Type: BLOOD SPECIMENOrdering Facility: [facility] Address: [address] [place] [address] Performed By: #### 2 4362-6 ####[facility] LABCLIA [id number] [address] [address] [place] Potassium [Moles/Vol] 4.0 mmol/L Normal 3.7-5.1 [facility] Comment on above: Order Comment: Speci men Type: BLOOD SPECIMENOrdering Facility: [facility] Address: [address] [place], [place] [address] Performed By: #### 2 4362-6 ####[facility] LABCLIA [id number] [place] [address] [place] Sodium [Moles/Vol] 140 mmol/L Normal 136-144 [facility] Comment on above: Order Comment: Speci men Type: BLOOD SPECIMENOrdering Facility: [facility] Address: [address] [place], [place] [address] Performed By: #### 2 4362-6 ####[facility] LABCLIA [id number] [address] [place] Urea nitrogen [Mass/Vol] 4 mg/dL Low 9-24 [facility] Comment on above: Order Comment: Speci men Type: BLOOD SPECIMENOrdering Facility: [facility] Address: [address] [place], [place] [address] Performed By: #### 2 4362-6 ####[facility] LABIA [id number] [place] [address] [place] THERAPY NTon 11-17-2021 THERAPY NT Normal [facility] CBC panel Auto (Bld)on 11-16 Erythrocyte distribution width (RBC) [Ratio] 13.4 % Normal 11.5-15.0 [facility] Comment on above: Order Comment: Speci men Type: BLOOD SPECIMENOrdering Facility: [facility] Address: [address] [place], [place] [address] Performed By: #### 5 8410-2 ####[facility] LABCLIA [id number] [address] [place] Hematocrit (Bld) [Volume fraction] 26.7 % Low 39.0-51.0 [facility] Comment on above: Order Comment: Speci men Type: BLOOD SPECIMENOrdering Facility: [facility] Address: [address] [place], [place] [address] Performed By: #### 5 8410-2 ####[facility] [id number] [address] [place] Hemoglobin (Bld) [Mass/Vol] 8.8 g/dL Low 13.0-17.0 [facility] Comment on above: Order Comment: Speci men Type: BLOOD SPECIMENOrdering Facility: [facility] Address: [address] [place] [address] Performed By: #### 5 8410-2 ####[facility] [id number] [place] [address] [place] MCH (RBC) [Entitic mass] 30.4 pg Normal 26.0-34.0 [facility] Comment on above: Order Comment: Speci men Type: BLOOD SPECIMENOrdering Facility: [facility] Address: [address] [place], [place] [address] Performed By: #### 5 8410-2 ####[facility] [id number] [address] [place] MCHC (RBC) [Mass/Vol] 33.0 g/dL Normal 30.5-36.0 [facility] Comment on above: Order Comment: Speci men Type: BLOOD SPECIMENOrdering Facility: [facility] Address: [address] [place], [place] [address] Performed By: #### 5 8410-2 ####[facility] [id number] [place] [address] [place] MCV (RBC) [Entitic vol] 92.4 fL Normal 80.0-100.0 [facility] Comment on above: Order Comment: Speci men Type: BLOOD SPECIMENOrdering Facility: [facility] Address: [address] [place], [place] [address] Performed By: #### 5 8410-2 ####[facility] LABIA [id number] [place] [address] [place] Nucleated RBC (Bld) [#/Vol] 10*3/uL Normal <0.01 [facility] Comment on above: Order Comment: Speci men Type: BLOOD SPECIMENOrdering Facility: [facility] Address: [address] [place], [place] [address] Performed By: #### 5 8410-2 ####[facility] LABIA [id number] [place] [address] [place] Platelet mean volume (Bld) [Entitic vol] 10.1 fL Normal 9.0-12.7 [facility] Comment on above: Order Comment: Speci men Type: BLOOD SPECIMENOrdering Facility: [facility] Address: [address] [place] [address] Performed By: #### 5 8410-2 ####[facility] [id number] [place] [address] [place] Platelets (Bld) [#/Vol] 261 10*3/uL Normal 150-400 [facility] Comment on above: Order Comment: Speci men Type: BLOOD SPECIMENOrdering Facility: [facility] Address: [address] [place], [place] [address] Performed By: #### 5 8410-2 ####[facility] LABIA [id number] [place] [address] [place] RBC (Bld) [#/Vol] 2.89 10*6/uL Low 4.20-6.00 [place] Comment on above: Order Comment: Speci men Type: BLOOD SPECIMENOrdering Facility: [facility] Address: [address] [place], [place] [address] Performed By: #### 5 8410-2 ####[facility] [id number] [place] [address] [place] WBC (Bld) [#/Vol] 9.81 10*3/uL Normal 3.70-11.00 [place] Comment on above: Order Comment: Speci men Type: BLOOD SPECIMENOrdering Facility: [facility] Address: [address] [place] [address] Performed By: #### 5 8410-2 ####[facility] LABCLIA [id number] [place] [address] [place] PTT, ANTICOAGULANT THERAPYon 11-16-2021 aPTT Coag (PPP) [Time] 33.9 s High 23.0-32.4 [facility] Comment on above: Order Comment: Speci men Type: BLOOD SPECIMENOrdering Facility: [facility] Address: [address] [place] [address] Performed By: #### P TTAC ####[facility] LABCLIA [id number] [address] [place] aPTT Coag (PPP) [Time] 63.8 s High 23.0-32.4 [facility] Comment on above: Order Comment: Speci men Type: BLOOD SPECIMENOrdering Facility: [facility] Address: [address] [place] [address] Performed By: #### P TTAC ####[facility] LABIA [id number] [place] [address] [place] Renal function 2000 panelon 11-16-2021 Albumin [Mass/Vol] 2.3 g/dL Low 3.9-4.9 [facility] Comment on above: Order Comment: Speci men Type: BLOOD SPECIMENOrdering Facility: [facility] Address: [address] [place], [place] [address] Performed By: #### 2 4362-6 ####[facility] LABIA [id number] [place] [address] [place] Anion gap [Moles/Vol] 10 mmol/L Normal 9-18 [facility] Comment on above: Order Comment: Speci men Type: BLOOD SPECIMENOrdering Facility: [facility] Address: [address] [place] [address] Performed By: #### 2 4362-6 ####[facility] LABCLIA [id number] [facility] [place] [place] [address] [place] Calcium [Mass/Vol] 8.7 mg/dL Normal 8.5-10.2 [facility] Comment on above: Order Comment: Speci men Type: BLOOD SPECIMENOrdering Facility: [facility] Address: [address] [place], [place] [address] Performed By: #### 2 4362-6 ####[facility] LABCLIA [id number] [place] [address] [place] Chloride [Moles/Vol] 109 mmol/L High 97-105 [facility] Comment on above: Order Comment: Speci men Type: BLOOD SPECIMENOrdering Facility: [facility] Address: [address] [place] [address] Performed By: #### 2 4362-6 ####[facility] LABCLIA [id number] [facility] [place] [address] [place] CO2 [Moles/Vol] 23 mmol/L Normal 22-30 [facility] Comment on above: Order Comment: Speci men Type: BLOOD SPECIMENOrdering Facility: [facility] Address: [address] [place] [address] Performed By: #### 2 4362-6 ####[facility] LABCLIA [id number] [place] [address] [place] Creatinine [Mass/Vol] 1.00 mg/dL Normal 0.73-1.22 [facility] Comment on above: Order Comment: Speci men Type: BLOOD SPECIMENOrdering Facility: [facility] Address: [address] [place] [address] Performed By: #### 2 4362-6 ####[facility] LABCLIA [id number] [address] OF [facility] ESTIMATED GLOMERULAR FILTRATION RATE 77 mL/min/1.73m??? Normal >=60 [facility] Comment on above: Order Comment: Misbah padilla Type: BLOOD SPECIMENOrdering Facility: [facility] Address: [address] [place] [address] Result Comment: Sandra mated Glomerular Filtration Rate [...] actual GFR. Performed By: #### 2 4362-6 ####[facility] LABIA [id number] [place] [address] [place] Glucose [Mass/Vol] 107 mg/dL High 74-99 [facility] Comment on above: Order Comment: Misbah padilla Type: BLOOD SPECIMENOrdering Facility: [facility] Address: [address] [place] [address] Result Comment: The [place] Diabetes Association (ADA) provides guidance for cutoff [...] Standards of Medical Care in Diabetes 2016, [place] Diabetes Association. Diabetes Care. 2016.39(Suppl 1). Performed By: #### 2 4362-6 ####[facility] LABCLIA [id number] [place] [address] [place] Phosphate [Mass/Vol] 3.1 mg/dL Normal 2.7-4.8 [facility] Comment on above: Order Comment: Speci men Type: BLOOD SPECIMENOrdering Facility: [facility] Address: [address] [place] [address] Performed By: #### 2 4362-6 ####[facility] LABCLIA [id number] [place] [address] [place] Potassium [Moles/Vol] 4.0 mmol/L Normal 3.7-5.1 [facility] Comment on above: Order Comment: Speci men Type: BLOOD SPECIMENOrdering Facility: [facility] Address: [address] [place] [address] Performed By: #### 2 4362-6 ####[facility] LABCLIA [id number] [place] [address] [place] Sodium [Moles/Vol] 142 mmol/L Normal 136-144 [facility] Comment on above: Order Comment: Speci men Type: BLOOD SPECIMENOrdering Facility: [facility] Address: [address] [place] [address] Performed By: #### 2 4362-6 ####[facility] LABCLIA [id number] [place] [address] [place] Urea nitrogen [Mass/Vol] 3 mg/dL Low 9-24 [facility] Comment on above: Order Comment: Speci men Type: BLOOD SPECIMENOrdering Facility: [facility] Address: [address] [place], [place] [address] Performed By: #### 2 4362-6 ####[facility] LABCLIA [id number] [place] [address] [place] CBC panel Auto (Bld)on 11-15 Erythrocyte distribution width (RBC) [Ratio] 13.3 % Normal 11.5-15.0 [facility] Comment on above: Order Comment: Speci men Type: BLOOD SPECIMENOrdering Facility: [facility] Address: [address] [place], [place] [address] Performed By: #### 5 8410-2 ####[facility] LABCLIA [id number] [address] [place] Hematocrit (Bld) [Volume fraction] 29.2 % Low 39.0-51.0 [facility] Comment on above: Order Comment: Speci men Type: BLOOD SPECIMENOrdering Facility: [facility] Address: [address] [place], [place] [address] Performed By: #### 5 8410-2 ####[facility] LABIA [id number] [address] [place] Hemoglobin (Bld) [Mass/Vol] 9.4 g/dL Low 13.0-17.0 [facility] Comment on above: Order Comment: Speci men Type: BLOOD SPECIMENOrdering Facility: [facility] Address: [address] [place], [place] [address] Performed By: #### 5 8410-2 ####[facility] LABIA [id number] [address] [place] MCH (RBC) [Entitic mass] 30.3 pg Normal 26.0-34.0 [facility] Comment on above: Order Comment: Speci men Type: BLOOD SPECIMENOrdering Facility: [facility] Address: [address] [place], [place] [address] Performed By: #### 5 8410-2 ####[facility] LABIA [id number] [address] [place] MCHC (RBC) [Mass/Vol] 32.2 g/dL Normal 30.5-36.0 [facility] Comment on above: Order Comment: Speci men Type: BLOOD SPECIMENOrdering Facility: [facility] Address: [address] [place] [address] Performed By: #### 5 8410-2 ####[facility] LABCLIA [id number] [address] MCV (RBC) [Entitic vol] 94.2 fL Normal 80.0-100.0 [facility] Comment on above: Order Comment: Speci men Type: BLOOD SPECIMENOrdering Facility: [facility] Address: [address] [place], [place] [address] Performed By: #### 5 8410-2 ####[facility] LABIA [id number] [place] [address] [place] Nucleated RBC (Bld) [#/Vol] 10*3/uL Normal <0.01 [facility] Comment on above: Order Comment: Speci men Type: BLOOD SPECIMENOrdering Facility: [facility] Address: [address] [place] [address] Performed By: #### 5 8410-2 ####[facility] LABIA [id number] [place] [address] [place] Platelet mean volume (Bld) [Entitic vol] 10.0 fL Normal 9.0-12.7 [facility] Comment on above: Order Comment: Speci men Type: BLOOD SPECIMENOrdering Facility: [facility] Address: [address] [place] [address] Performed By: #### 5 8410-2 ####[facility] LABCLIA [id number] [place] [address] [place] Platelets (Bld) [#/Vol] 336 10*3/uL Normal 150-400 [facility] Comment on above: Order Comment: Speci men Type: BLOOD SPECIMENOrdering Facility: [facility] Address: [address] [place], [place] [address] Performed By: #### 5 8410-2 ####[facility] LABCLIA [id number] [place] [address] [place] RBC (Bld) [#/Vol] 3.10 10*6/uL Low 4.20-6.00 [place] Comment on above: Order Comment: Speci men Type: BLOOD SPECIMENOrdering Facility: [facility] Address: [address] [place], [place] [address] Performed By: #### 5 8410-2 ####[facility] LABIA [id number] [place] [address] [place] WBC (Bld) [#/Vol] 9.78 10*3/uL Normal 3.70-11.00 [place] Comment on above: Order Comment: Speci men Type: BLOOD SPECIMENOrdering Facility: [facility] Address: [address] [place], [place] [address] Performed By: #### 5 8410-2 ####[facility] LABIA [id number] [place] [address] [place] PT EDon 11-15-2021 PT ED Normal [facility] PTT, ANTICOAGULANT THERAPYon 11-15-2021 aPTT Coag (PPP) [Time] 45.7 s High 23.0-32.4 [facility] Comment on above: Order Comment: Speci men Type: BLOOD SPECIMENOrdering Facility: [facility] Address: [address] [place] [address] Performed By: #### P TTAC ####[facility] LABIA [id number] [place] [address] [place] aPTT Coag (PPP) [Time] 73.7 s High 23.0-32.4 [facility] Comment on above: Order Comment: Speci men Type: BLOOD SPECIMENOrdering Facility: [facility] Address: [address] [place], [place] [address] Performed By: #### P TTAC ####[facility] LABCLIA [id number] [place] [address] [place] aPTT Coag (PPP) [Time] 43.4 s High 23.0-32.4 [facility] Comment on above: Order Comment: Speci men Type: BLOOD SPECIMENOrdering Facility: [facility] Address: [address] [place] [address] Performed By: #### P TTA ####[facility] LABIA [id number] [place] [address] [place] Renal function 2000 panelon 11-15-2021 Albumin [Mass/Vol] 2.5 g/dL Low 3.9-4.9 [facility] Comment on above: Order Comment: Speci men Type: BLOOD SPECIMENOrdering Facility: [facility] Address: [address] [place] [address] Performed By: #### 2 4362-6 ####[facility] [id number] [place] [address] [place] Anion gap [Moles/Vol] 11 mmol/L Normal 9-18 [facility] Comment on above: Order Comment: Speci men Type: BLOOD SPECIMENOrdering Facility: [facility] Address: [address] [place] [address] Performed By: #### 2 4362-6 ####[facility] LABIA [id number] [place] [address] [place] Calcium [Mass/Vol] 8.7 mg/dL Normal 8.5-10.2 [facility] Comment on above: Order Comment: Speci men Type: BLOOD SPECIMENOrdering Facility: [facility] Address: [address] [place], [place] [address] Performed By: #### 2 4362-6 ####[facility] LABIA [id number] [place] [address] [place] Chloride [Moles/Vol] 110 mmol/L High 97-105 [facility] Comment on above: Order Comment: Speci men Type: BLOOD SPECIMENOrdering Facility: [facility] Address: [address] [place] [address] Performed By: #### 2 4362-6 ####[facility] LABCLIA [id number] [place] [address] [place] CO2 [Moles/Vol] 22 mmol/L Normal 22-30 [facility] Comment on above: Order Comment: Speci men Type: BLOOD SPECIMENOrdering Facility: [facility] Address: [address] [place], [place] [address] Performed By: #### 2 4362-6 ####[facility] LABCLIA [id number] [address] STATES OF [facility] Creatinine [Mass/Vol] 0.97 mg/dL Normal 0.73-1.22 [facility] Comment on above: Order Comment: Speci men Type: BLOOD SPECIMENOrdering Facility: [facility] Address: [address] [place], [place] [address] Performed By: #### 2 4362-6 ####[facility] LABCLIA [id number] [address] [place] ESTIMATED GLOMERULAR FILTRATION RATE 79 mL/min/1.73m??? Normal >=60 [facility] Comment on above: Order Comment: Speci men Type: BLOOD SPECIMENOrdering Facility: [facility] Address: [address] [place], [place] [address] Result Comment: Sandra mated Glomerular Filtration Rate [...] actual GFR. Performed By: #### 2 4362-6 ####[facility] LABCLIA [id number] [place] [address] [place] Glucose [Mass/Vol] 121 mg/dL High 74-99 [facility] Comment on above: Order Comment: Speci men Type: BLOOD SPECIMENOrdering Facility: [facility] Address: [address] [place] [address] Result Comment: [place] Diabetes Association (ADA) provides guidance for cutoff [...] Standards of Medical Care in Diabetes 2016, [place] Diabetes Association. Diabetes Care. 2016.39(Suppl 1). Performed By: #### 2 4362-6 ####[facility] LABCLIA [id number] [place] [address] [place] Phosphate [Mass/Vol] 2.5 mg/dL Low 2.7-4.8 [facility] Comment on above: Order Comment: Speci men Type: BLOOD SPECIMENOrdering Facility: [facility] Address: [address] [place], [place] [address] Performed By: #### 2 4362-6 ####[facility] LABIA [id number] [place] [address] [place] Potassium [Moles/Vol] 3.1 mmol/L Low 3.7-5.1 [facility] Comment on above: Order Comment: Speci men Type: BLOOD SPECIMENOrdering Facility: [facility] Address: [address] [place] [address] Performed By: #### 2 4362-6 ####[facility] LABCLIA [id number] [place] [address] [place] Sodium [Moles/Vol] 143 mmol/L Normal 136-144 [facility] Comment on above: Order Comment: Speci men Type: BLOOD SPECIMENOrdering Facility: [facility] Address: [address] [place] [address] Performed By: #### 2 4362-6 ####[facility] LABCLIA [id number] [place] [address] [place] Urea nitrogen [Mass/Vol] 4 mg/dL Low 9-24 [facility] Comment on above: Order Comment: Speci men Type: BLOOD SPECIMENOrdering Facility: [facility] Address: [address] [place] [address] Performed By: #### 2 4362-6 ####[facility] LABCLIA [id number] [place] [address] [place] TYPE + SCREENon 11-15-2021 ABO O Normal [facility] Comment on above: Order Comment: Speci men Type: BLOOD SPECIMENOrdering Facility: [facility] Address: [address] [place] [address] Performed By: #### T SCR ####[facility] BLOOD BANKCLIA [id number] [place] [address] [place] HISTORICAL AB SCR STATUS Negative Normal [facility] Comment on above: Order Comment: Speci men Type: BLOOD SPECIMENOrdering Facility: [facility] Address: [address] [place], [place] [address] Performed By: #### T SCR ####[facility] BLOOD BANKIA [id number] [place] [address] [place] Rh Nom (Bld) Positive Normal [facility] Comment on above: Order Comment: Speci men Type: BLOOD SPECIMENOrdering Facility: [facility] Address: [address] [place], [place] [address] Performed By: #### T SCR ####[facility] BLOOD BANKCLIA [id number] [place] [id number] [place] TYPE AND SCREEN EXPIRATION 11/18/2021 23:59 Normal [facility] Comment on above: Order Comment: Speci men Type: BLOOD SPECIMENOrdering Facility: [facility] Address: [address] [place] [address] Performed By: #### T SCR ####[facility] BLOOD BANKCLIA [id number] [place] [id number] [place] Basic metabolic 2000 panelon 11-14-2021 Anion gap [Moles/Vol] 8 mmol/L Low 9-18 [facility] Comment on above: Order Comment: Speci men Type: BLOOD SPECIMENOrdering Facility: [facility] Address: [address] [place] [address] Performed By: #### 2 4321-2 ####[facility] LABCLIA [id number] [place] [address] [place] Calcium [Mass/Vol] 8.8 mg/dL Normal 8.5-10.2 [facility] Comment on above: Order Comment: Speci men Type: BLOOD SPECIMENOrdering Facility: [facility] Address: [address] [place], [place] [address] Performed By: #### 2 4321-2 ####[facility] LABCLIA [id number] [place] [address] [place] Chloride [Moles/Vol] 110 mmol/L High 97-105 [facility] Comment on above: Order Comment: Speci men Type: BLOOD SPECIMENOrdering Facility: [facility] Address: [address] [place], [place] [address] Performed By: #### 2 4321-2 ####[facility] LABCLIA [id number] [place] [address] [place] CO2 [Moles/Vol] 24 mmol/L Normal 22-30 [facility] Comment on above: Order Comment: Speci men Type: BLOOD SPECIMENOrdering Facility: [facility] Address: [address] [place] [address] Performed By: #### 2 4321-2 ####[facility] LABCLIA [id number] [place] [address] [place] Creatinine [Mass/Vol] 0.96 mg/dL Normal 0.73-1.22 [facility] Comment on above: Order Comment: Speci men Type: BLOOD SPECIMENOrdering Facility: [facility] Address: [address] [place] [address] Performed By: #### 2 4321-2 ####[facility] LABIA [id number] [place] [address] [place] ESTIMATED GLOMERULAR FILTRATION RATE 80 mL/min/1.73m??? Normal >=60 [facility] Comment on above: Order Comment: Speci men Type: BLOOD SPECIMENOrdering Facility: [facility] Address: [address] [place] [address] Result Comment: Sandra mated Glomerular Filtration Rate [...] actual GFR. Performed By: #### 2 4321-2 ####[facility] LABIA [id number] [facility] [place] [address] [place] Glucose [Mass/Vol] 113 mg/dL High 74-99 [facility] Comment on above: Order Comment: Speci men Type: BLOOD SPECIMENOrdering Facility: [facility] Address: [address] [place] [address] Result Comment: [place] Diabetes Association (ADA) provides guidance for cutoff [...] Standards of Medical Care in Diabetes 2016, [place] Diabetes Association. Diabetes Care. 2016.39(Suppl 1). Performed By: #### 2 4321-2 ####[facility] LABCLIA [id number] [place] [address] [place] Potassium [Moles/Vol] 3.0 mmol/L Low 3.7-5.1 [facility] Comment on above: Order Comment: Speci men Type: BLOOD SPECIMENOrdering Facility: [facility] Address: [address] [place] [address] Performed By: #### 2 4321-2 ####[facility] LABIA [id number] [place] [address] [place] Sodium [Moles/Vol] 142 mmol/L Normal 136-144 [facility] Comment on above: Order Comment: Speci men Type: BLOOD SPECIMENOrdering Facility: [facility] Address: [address] [place] [address] Performed By: #### 2 4321-2 ####[facility] LABCLIA [id number] [place] [address] [place] Urea nitrogen [Mass/Vol] 3 mg/dL Low 9-24 [facility] Comment on above: Order Comment: Speci men Type: BLOOD SPECIMENOrdering Facility: [facility] Address: [address] [place] [address] Performed By: #### 2 4321-2 ####[facility] LABCLIA [id number] [place] [address] [place] CASE MANAGEMon 11-14-2021 CASE MANAGEM Normal [facility] CBC panel Auto (Bld)on 11-14 Erythrocyte distribution width (RBC) [Ratio] 13.3 % Normal 11.5-15.0 [facility] Comment on above: Order Comment: Speci men Type: BLOOD SPECIMENOrdering Facility: [facility] Address: [address] [place], [place] [address] Performed By: #### 5 8410-2 ####[facility] [id number] [place] [address] [place] Hematocrit (Bld) [Volume fraction] 29.7 % Low 39.0-51.0 [facility] Comment on above: Order Comment: Speci men Type: BLOOD SPECIMENOrdering Facility: [facility] Address: [address] [place], [place] [address] Performed By: #### 5 8410-2 ####[facility] [id number] [place] [address] [place] Hemoglobin (Bld) [Mass/Vol] 9.4 g/dL Low 13.0-17.0 [facility] Comment on above: Order Comment: Speci men Type: BLOOD SPECIMENOrdering Facility: [facility] Address: [address] [place], [place] [address] Performed By: #### 5 8410-2 ####[facility] LABIA [id number] [place] [address] [place] MCH (RBC) [Entitic mass] 30.2 pg Normal 26.0-34.0 [facility] Comment on above: Order Comment: Speci men Type: BLOOD SPECIMENOrdering Facility: [facility] Address: [address] [place], [place] [address] Performed By: #### 5 8410-2 ####[facility] LABIA [id number] [place] MCHC (RBC) [Mass/Vol] 31.6 g/dL Normal 30.5-36.0 [facility] Comment on above: Order Comment: Speci men Type: BLOOD SPECIMENOrdering Facility: [facility] Address: [address] [place], [place] [address] Performed By: #### 5 8410-2 ####[facility] LABIA [id number] [place] [address] [place] MCV (RBC) [Entitic vol] 95.5 fL Normal 80.0-100.0 [facility] Comment on above: Order Comment: Speci men Type: BLOOD SPECIMENOrdering Facility: [facility] Address: [address] [place], [place] [address] Performed By: #### 5 8410-2 ####[facility] LABIA [id number] [place] [address] [place] Nucleated RBC (Bld) [#/Vol] 10*3/uL Normal <0.01 [facility] Comment on above: Order Comment: Speci men Type: BLOOD SPECIMENOrdering Facility: [facility] Address: [address] [place], [place] [address] Performed By: #### 5 8410-2 ####[facility] LABIA [id number] [place] [address] [place] Platelet mean volume (Bld) [Entitic vol] 9.6 fL Normal 9.0-12.7 [facility] Comment on above: Order Comment: Speci men Type: BLOOD SPECIMENOrdering Facility: [facility] Address: [address] [place], [place] [address] Performed By: #### 5 8410-2 ####[facility] LABCLIA [id number] [place] [address] [place] Platelets (Bld) [#/Vol] 308 10*3/uL Normal 150-400 [facility] Comment on above: Order Comment: Speci men Type: BLOOD SPECIMENOrdering Facility: [facility] Address: [address] [place], [place] [address] Performed By: #### 5 8410-2 ####[facility] LABCLIA [id number] [place] [address] [place] RBC (Bld) [#/Vol] 3.11 10*6/uL Low 4.20-6.00 [place] Comment on above: Order Comment: Speci men Type: BLOOD SPECIMENOrdering Facility: [facility] Address: [address] [place], [place] [address] Performed By: #### 5 8410-2 ####[facility] LABCLIA [id number] [place] [address] [place] WBC (Bld) [#/Vol] 9.48 10*3/uL Normal 3.70-11.00 [place] Comment on above: Order Comment: Speci men Type: BLOOD SPECIMENOrdering Facility: [facility] Address: [address] [place], [place] [address] Performed By: #### 5 8410-2 ####[facility] LABIA [id number] [place] [address] [place] NURSING PROGon 11-14-2021 NURSING PROG Normal [facility] NUTRITIONon 11-14-2021 NUTRITION Normal [facility] PTT, ANTICOAGULANT THERAPYon 11-14-2021 aPTT Coag (PPP) [Time] 49.0 s High 23.0-32.4 [facility] Comment on above: Order Comment: Speci men Type: BLOOD SPECIMENOrdering Facility: [facility] Address: [address] [place], [place] [address] Performed By: #### P TTAC ####[facility] LABCLIA [id number] [place] [address] [place] Renal function 2000 panelon 11-14-2021 Albumin [Mass/Vol] 2.1 g/dL Low 3.9-4.9 [facility] Comment on above: Order Comment: Speci men Type: BLOOD SPECIMENOrdering Facility: [facility] Address: [address] [place], [place] [address] Performed By: #### 2 4362-6 ####[facility] LABCLIA [id number] [place] [address] [place] Anion gap [Moles/Vol] 10 mmol/L Normal 9-18 [facility] Comment on above: Order Comment: Speci men Type: BLOOD SPECIMENOrdering Facility: [facility] Address: [address] [place], [place] [address] Performed By: #### 2 4362-6 ####[facility] LABCLIA [id number] [place] [address] [place] Calcium [Mass/Vol] 8.3 mg/dL Low 8.5-10.2 [facility] Comment on above: Order Comment: Speci men Type: BLOOD SPECIMENOrdering Facility: [facility] Address: [address] [place], [place] [address] Performed By: #### 2 4362-6 ####[facility] LABCLIA [id number] [place] [address] [place] Chloride [Moles/Vol] 111 mmol/L High 97-105 [facility] Comment on above: Order Comment: Speci men Type: BLOOD SPECIMENOrdering Facility: [facility] Address: [address] [place], [place] [address] Performed By: #### 2 4362-6 ####[facility] LABCLIA [id number] [place] [address] [place] CO2 [Moles/Vol] 21 mmol/L Low 22-30 [facility] Comment on above: Order Comment: Speci men Type: BLOOD SPECIMENOrdering Facility: [facility] Address: [address] [place] [id number] Performed By: #### 2 4362-6 ####[facility] [id number] [address] STATES [facility] Creatinine [Mass/Vol] 0.91 mg/dL Normal 0.73-1.22 [facility] Comment on above: Order Comment: Speci men Type: BLOOD SPECIMENOrdering Facility: [facility] Address: [address] [place] [address] Performed By: #### 2 4362-6 ####[facility] LABIA [id number] [address] OF [facility] ESTIMATED GLOMERULAR FILTRATION RATE 86 mL/min/1.73m??? Normal >=60 [facility] Comment on above: Order Comment: [place] men Type: BLOOD SPECIMENOrdering Facility: [facility] Address: [address] [place] [address] Result Comment: Sandra mated Glomerular Filtration Rate [...] actual GFR. Performed By: #### 2 4362-6 ####[facility] LABIA [id number] [address] [place] Glucose [Mass/Vol] 97 mg/dL Normal 74-99 [facility] Comment on above: Order Comment: Speci men Type: BLOOD SPECIMENOrdering Facility: [facility] Address: [address] [place] [address] Result Comment: The [place] Diabetes Association (ADA) provides guidance for cutoff [...] Standards of Medical Care in Diabetes 2016, [place] Diabetes Association. Diabetes Care. 2016.39(Suppl 1). Performed By: #### 2 4362-6 ####[facility] LABCLIA [id number] [place] [address] [place] Phosphate [Mass/Vol] 2.3 mg/dL Low 2.7-4.8 [facility] Comment on above: Order Comment: Speci men Type: BLOOD SPECIMENOrdering Facility: [facility] Address: [address] [place] [address] Performed By: #### 2 4362-6 ####[facility] LABIA [id number] [place] [address] [place] Potassium [Moles/Vol] 3.0 mmol/L Low 3.7-5.1 [facility] Comment on above: Order Comment: Speci men Type: BLOOD SPECIMENOrdering Facility: [facility] Address: [address] [place] [address] Performed By: #### 2 4362-6 ####[facility] LABIA [id number] [place] [address] [place] Sodium [Moles/Vol] 142 mmol/L Normal 136-144 [facility] Comment on above: Order Comment: Speci men Type: BLOOD SPECIMENOrdering Facility: [facility] Address: [address] [place], [place] [address] Performed By: #### 2 4362-6 ####[facility] LABCLIA [id number] [place] [address] [place] Urea nitrogen [Mass/Vol] 3 mg/dL Low 9-24 [facility] Comment on above: Order Comment: Speci men Type: BLOOD SPECIMENOrdering Facility: [facility] Address: [address] [place] [address] Performed By: #### 2 4362-6 ####[facility] LABCLIA [id number] [place] [address] [place] CBC panel Auto (Bld)on 11-13 Erythrocyte distribution width (RBC) [Ratio] 13.5 % Normal 11.5-15.0 [facility] Comment on above: Order Comment: Speci men Type: BLOOD SPECIMENOrdering Facility: [facility] Address: [address] [place] [address] Performed By: #### 5 8410-2 ####[facility] LABIA [id number] [place] [address] [place] Hematocrit (Bld) [Volume fraction] 27.3 % Low 39.0-51.0 [facility] Comment on above: Order Comment: Speci men Type: BLOOD SPECIMENOrdering Facility: [facility] Address: [address] [place] [address] Performed By: #### 5 8410-2 ####[facility] LABIA [id number] [place] [address] [place] Hemoglobin (Bld) [Mass/Vol] 8.8 g/dL Low 13.0-17.0 [facility] Comment on above: Order Comment: Speci men Type: BLOOD SPECIMENOrdering Facility: [facility] Address: [address] [place] [address] Performed By: #### 5 8410-2 ####[facility] LABIA [id number] [place] [address] [place] MCH (RBC) [Entitic mass] 30.6 pg Normal 26.0-34.0 [facility] Comment on above: Order Comment: Speci men Type: BLOOD SPECIMENOrdering Facility: [facility] Address: [address] [place], [place] [address] Performed By: #### 5 8410-2 ####[facility] LABIA [id number] [address] MCHC (RBC) [Mass/Vol] 32.2 g/dL Normal 30.5-36.0 [facility] Comment on above: Order Comment: Speci men Type: BLOOD SPECIMENOrdering Facility: [facility] Address: [address] [place], [place] [address] Performed By: #### 5 8410-2 ####[facility] LABIA [id number] [place] [address] [place] MCV (RBC) [Entitic vol] 94.8 fL Normal 80.0-100.0 [facility] Comment on above: Order Comment: Speci men Type: BLOOD SPECIMENOrdering Facility: [facility] Address: [address] [place], [place] [address] Performed By: #### 5 8410-2 ####[facility] [id number] [place] [address] [place] Nucleated RBC (Bld) [#/Vol] 10*3/uL Normal <0.01 [facility] Comment on above: Order Comment: Speci men Type: BLOOD SPECIMENOrdering Facility: [facility] Address: [address] [place] [address] Performed By: #### 5 8410-2 ####[facility] LABIA [id number] [place] [address] [place] Platelet mean volume (Bld) [Entitic vol] 9.7 fL Normal 9.0-12.7 [facility] Comment on above: Order Comment: Speci men Type: BLOOD SPECIMENOrdering Facility: [facility] Address: [address] [place], [place] [address] Performed By: #### 5 8410-2 ####[facility] LABCLIA [id number] [place] [address] [place] Platelets (Bld) [#/Vol] 309 10*3/uL Normal 150-400 [facility] Comment on above: Order Comment: Speci men Type: BLOOD SPECIMENOrdering Facility: [facility] Address: [address] [place], [place] [address] Performed By: #### 5 8410-2 ####[facility] LABIA [id number] [place] [address] [place] RBC (Bld) [#/Vol] 2.88 10*6/uL Low 4.20-6.00 [place] Comment on above: Order Comment: Speci men Type: BLOOD SPECIMENOrdering Facility: [facility] Address: [address] [place], [place] [address] Performed By: #### 5 8410-2 ####[facility] LABIA [id number] [place] [address] [place] WBC (Bld) [#/Vol] 10.12 10*3/uL Normal 3.70-11.00 [facility] Comment on above: Order Comment: Speci men Type: BLOOD SPECIMENOrdering Facility: [facility] Address: [address] [place], [place] [address] Performed By: #### 5 8410-2 ####[facility] [id number] [place] [address] [place] NURSING PROGon 11-13-2021 NURSING PROG Normal [facility] NURSING PROG Normal [facility] PTT, ANTICOAGULANT THERAPYon 11-13-2021 aPTT Coag (PPP) [Time] 61.2 s High 23.0-32.4 [facility] Comment on above: Order Comment: Speci men Type: BLOOD SPECIMENOrdering Facility: [facility] Address: [address] [place], [place] [address] Performed By: #### P TTAC ####[facility] LABCLIA [id number] [place] [address] [place] aPTT Coag (PPP) [Time] 63.9 s High 23.0-32.4 [facility] Comment on above: Order Comment: Speci men Type: BLOOD SPECIMENOrdering Facility: [facility] Address: [address] [place], [place] [address] Performed By: #### P TTAC ####[facility] LABCLIA [id number] [place] [address] [place] aPTT Coag (PPP) [Time] 43.6 s High 23.0-32.4 [facility] Comment on above: Order Comment: Speci men Type: BLOOD SPECIMENOrdering Facility: [facility] Address: [address] [place], [place] [address] Performed By: #### P TTAC ####[facility] LABIA [id number] [address] [place] aPTT Coag (PPP) [Time] 61.4 s High 23.0-32.4 [facility] Comment on above: Order Comment: Speci men Type: BLOOD SPECIMENOrdering Facility: [facility] Address: [address] [place], [place] [address] Performed By: #### P TTAC ####[facility] LABCLIA [id number] [place] [address] [place] Renal function 2000 panelon 11-13-2021 Albumin [Mass/Vol] 2.3 g/dL Low 3.9-4.9 [facility] Comment on above: Order Comment: Speci men Type: BLOOD SPECIMENOrdering Facility: [facility] Address: [address] [place], [place] [address] Performed By: #### 2 4362-6 ####[facility] LABCLIA [id number] [place] [address] [place] Anion gap [Moles/Vol] 9 mmol/L Normal 9-18 [facility] Comment on above: Order Comment: Speci men Type: BLOOD SPECIMENOrdering Facility: [facility] Address: [address] [place] [address] Performed By: #### 2 4362-6 ####[facility] LABCLIA [id number] [place] [address] [place] Calcium [Mass/Vol] 8.3 mg/dL Low 8.5-10.2 [facility] Comment on above: Order Comment: Speci men Type: BLOOD SPECIMENOrdering Facility: [facility] Address: [address] [place], [place] [address] Performed By: #### 2 4362-6 ####[facility] LABCLIA [id number] [place] [address] [place] Chloride [Moles/Vol] 113 mmol/L High 97-105 [facility] Comment on above: Order Comment: Speci men Type: BLOOD SPECIMENOrdering Facility: [facility] Address: [address] [place] [address] Performed By: #### 2 4362-6 ####[facility] LABCLIA [id number] [place] [address] [place] CO2 [Moles/Vol] 21 mmol/L Low 22-30 [facility] Comment on above: Order Comment: Speci men Type: BLOOD SPECIMENOrdering Facility: [facility] Address: [address] [place] [address] Performed By: #### 2 4362-6 ####[facility] LABCLIA [id number] [place] [address] [place] Creatinine [Mass/Vol] 1.01 mg/dL Normal 0.73-1.22 [facility] Comment on above: Order Comment: Speci men Type: BLOOD SPECIMENOrdering Facility: [facility] Address: [address] [place] [address] Performed By: #### 2 4362-6 ####[facility] LABIA [id number] [address] [place] ESTIMATED GLOMERULAR FILTRATION RATE 76 mL/min/1.73m??? Normal >=60 [facility] Comment on above: Order Comment: Misbah padilla Type: BLOOD SPECIMENOrdering Facility: [facility] Address: [address] [place] [address] Result Comment: Sandra mated Glomerular Filtration Rate [...] actual GFR. Performed By: #### 2 4362-6 ####[facility] LABIA [id number] [place] [address] [place] Glucose [Mass/Vol] 123 mg/dL High 74-99 [facility] Comment on above: Order Comment: Misbah padilla Type: BLOOD SPECIMENOrdering Facility: [facility] Address: [address] [place] [address] Result Comment: The [place] Diabetes Association (ADA) provides guidance for cutoff [...] Standards of Medical Care in Diabetes 2016, [place] Diabetes Association. Diabetes Care. 2016.39(Suppl 1). Performed By: #### 2 4362-6 ####[facility] LABCLIA [id number] [place] [address] [place] Phosphate [Mass/Vol] 2.9 mg/dL Normal 2.7-4.8 [facility] Comment on above: Order Comment: Speci men Type: BLOOD SPECIMENOrdering Facility: [facility] Address: [address] [place], [place] [address] Performed By: #### 2 4362-6 ####[facility] LABCLIA [id number] [place] [address] [place] Potassium [Moles/Vol] 3.2 mmol/L Low 3.7-5.1 [facility] Comment on above: Order Comment: Speci men Type: BLOOD SPECIMENOrdering Facility: [facility] Address: [address] [place], [place] [address] Performed By: #### 2 4362-6 ####[facility] LABIA [id number] [place] [address] [place] Sodium [Moles/Vol] 143 mmol/L Normal 136-144 [facility] Comment on above: Order Comment: Speci men Type: BLOOD SPECIMENOrdering Facility: [facility] Address: [address] [place], [place] [address] Performed By: #### 2 4362-6 ####[facility] LABCLIA [id number] [place] [address] [place] Urea nitrogen [Mass/Vol] 5 mg/dL Low 9-24 [facility] Comment on above: Order Comment: Speci men Type: BLOOD SPECIMENOrdering Facility: [facility] Address: [address] [place] [address] Performed By: #### 2 4362-6 ####[facility] LABCLIA [id number] [place] [id number] [place] CASE MANAGEMon 11-12-2021 CASE MANAGEM Normal [facility] CBC panel Auto (Bld)on 11-12 Erythrocyte distribution width (RBC) [Ratio] 13.8 % Normal 11.5-15.0 [facility] Comment on above: Order Comment: Speci men Type: BLOOD SPECIMENOrdering Facility: [facility] Address: [address] [place] [address] Performed By: #### 5 8410-2 ####[facility] LABIA [id number] [address] OF [facility] Hematocrit (Bld) [Volume fraction] 27.9 % Low 39.0-51.0 [facility] Comment on above: Order Comment: Speci men Type: BLOOD SPECIMENOrdering Facility: [facility] Address: [address] [place] [address] Performed By: #### 5 8410-2 ####[facility] LABIA [id number] [address] OF [facility] Hemoglobin (Bld) [Mass/Vol] 8.9 g/dL Low 13.0-17.0 [facility] Comment on above: Order Comment: Speci men Type: BLOOD SPECIMENOrdering Facility: [facility] Address: [address] [place] [address] Performed By: #### 5 8410-2 ####[facility] LABIA [id number] [place] [address] [place] MCH (RBC) [Entitic mass] 30.1 pg Normal 26.0-34.0 [facility] Comment on above: Order Comment: Speci men Type: BLOOD SPECIMENOrdering Facility: [facility] Address: [address] [place], [place] [address] Performed By: #### 5 8410-2 ####[facility] LABCLIA [id number] [address] [place] MCHC (RBC) [Mass/Vol] 31.9 g/dL Normal 30.5-36.0 [facility] Comment on above: Order Comment: Speci men Type: BLOOD SPECIMENOrdering Facility: [facility] Address: [address] [place] [address] Performed By: #### 5 8410-2 ####[facility] LABIA [id number] [address] [place] MCV (RBC) [Entitic vol] 94.3 fL Normal 80.0-100.0 [facility] Comment on above: Order Comment: Speci men Type: BLOOD SPECIMENOrdering Facility: [facility] Address: [address] [place], [place] [address] Performed By: #### 5 8410-2 ####[facility] LABIA [id number] [place] [address] [place] Nucleated RBC (Bld) [#/Vol] 10*3/uL Normal <0.01 [facility] Comment on above: Order Comment: Speci men Type: BLOOD SPECIMENOrdering Facility: [facility] Address: [address] [place], [place] [address] Performed By: #### 5 8410-2 ####[facility] LABIA [id number] [place] [address] [place] Platelet mean volume (Bld) [Entitic vol] 9.5 fL Normal 9.0-12.7 [facility] Comment on above: Order Comment: Speci men Type: BLOOD SPECIMENOrdering Facility: [facility] Address: [address] [place] [address] Performed By: #### 5 8410-2 ####[facility] LABCLIA [id number] [place] [address] [place] Platelets (Bld) [#/Vol] 349 10*3/uL Normal 150-400 [facility] Comment on above: Order Comment: Speci men Type: BLOOD SPECIMENOrdering Facility: [facility] Address: [address] [place], [place] [address] Performed By: #### 5 8410-2 ####[facility] LABIA [id number] [place] [address] [place] RBC (Bld) [#/Vol] 2.96 10*6/uL Low 4.20-6.00 [place] Comment on above: Order Comment: Speci men Type: BLOOD SPECIMENOrdering Facility: [facility] Address: [address] [place], [place] [address] Performed By: #### 5 8410-2 ####[facility] [id number] [place] [address] [place] WBC (Bld) [#/Vol] 10.19 10*3/uL Normal 3.70-11.00 [facility] Comment on above: Order Comment: Speci men Type: BLOOD SPECIMENOrdering Facility: [facility] Address: [address] [place], [place] [address] Performed By: #### 5 8410-2 ####[facility]ITAL[facility] [id number] [place] [address] [place] Erythrocyte distribution width (RBC) [Ratio] 13.6 % Normal 11.5-15.0 [facility] Comment on above: Order Comment: Speci men Type: BLOOD SPECIMENOrdering Facility: [facility] Address: [address] [place], [place] [address] Performed By: #### 5 8410-2 ####[facility] [id number] [place] [address] [place] Hematocrit (Bld) [Volume fraction] 26.6 % Low 39.0-51.0 [facility] Comment on above: Order Comment: Speci men Type: BLOOD SPECIMENOrdering Facility: [facility] Address: [address] [place], [place] [address] Performed By: #### 5 8410-2 ####[facility] LABCLIA [id number] [place] [address] [place] Hemoglobin (Bld) [Mass/Vol] 8.4 g/dL Low 13.0-17.0 [facility] Comment on above: Order Comment: Speci men Type: BLOOD SPECIMENOrdering Facility: [facility] Address: [address] [place], [place] [address] Performed By: #### 5 8410-2 ####[facility] LABIA [id number] [address] [place] MCH (RBC) [Entitic mass] 30.1 pg Normal 26.0-34.0 [facility] Comment on above: Order Comment: Speci men Type: BLOOD SPECIMENOrdering Facility: [facility] Address: [address] [place] [address] Performed By: #### 5 8410-2 ####[facility] LABIA [id number] [address] [place] MCHC (RBC) [Mass/Vol] 31.6 g/dL Normal 30.5-36.0 [facility] Comment on above: Order Comment: Speci men Type: BLOOD SPECIMENOrdering Facility: [facility] Address: [address] [place], [place] [address] Performed By: #### 5 8410-2 ####[facility] LABIA [id number] [address] [place] MCV (RBC) [Entitic vol] 95.3 fL Normal 80.0-100.0 [facility] Comment on above: Order Comment: Speci men Type: BLOOD SPECIMENOrdering Facility: [facility] Address: [address] [place], [place] [address] Performed By: #### 5 8410-2 ####[facility] LABIA [id number] [place] [address] [place] Nucleated RBC (Bld) [#/Vol] 10*3/uL Normal <0.01 [facility] Comment on above: Order Comment: Speci men Type: BLOOD SPECIMENOrdering Facility: [facility] Address: [address] [place], [place] [address] Performed By: #### 5 8410-2 ####[facility] LABCLIA [id number] [place] [address] [place] Platelet mean volume (Bld) [Entitic vol] 9.7 fL Normal 9.0-12.7 [facility] Comment on above: Order Comment: Speci men Type: BLOOD SPECIMENOrdering Facility: [facility] Address: [address] [place], [place] [address] Performed By: #### 5 8410-2 ####[facility] LABCLIA [id number] [place] [address] [place] Platelets (Bld) [#/Vol] 313 10*3/uL Normal 150-400 [facility] Comment on above: Order Comment: Speci men Type: BLOOD SPECIMENOrdering Facility: [facility] Address: [address] [place], [place] [address] Performed By: #### 5 8410-2 ####[facility] LABCLIA [id number] [place] [address] [place] RBC (Bld) [#/Vol] 2.79 10*6/uL Low 4.20-6.00 [place] Comment on above: Order Comment: Speci men Type: BLOOD SPECIMENOrdering Facility: [facility] Address: [address] [place], [place] [address] Performed By: #### 5 8410-2 ####[facility] LABCLIA [id number] [place] [address] [place] WBC (Bld) [#/Vol] 9.10 10*3/uL Normal 3.70-11.00 [place] Comment on above: Order Comment: Speci men Type: BLOOD SPECIMENOrdering Facility: [facility] Address: [address] [place] [address] Performed By: #### 5 8410-2 ####[facility] LABCLIA [id number] [place] [address] [place] NURSING PROGon 11-12-2021 NURSING PROG Normal [facility] PTT, ANTICOAGULANT THERAPYon 11-12-2021 aPTT Coag (PPP) [Time] 80.0 s High 23.0-32.4 [facility] Comment on above: Order Comment: Speci men Type: BLOOD SPECIMENOrdering Facility: [facility] Address: [address] [place] [address] Result Comment: Inte rpret with caution. Sample centrifuged greater than 1 hour from collection time. According to Clinical and Laboratory Standards [place] guidelines, results could be falsely decreased due to heparin neutralization by in vitro release of platelet factor 4. Suggest correlation with clinical findings and redraw if indicated. Performed By: #### P TTAC ####[facility] LABCLIA [id number] [address] aPTT Coag (PPP) [Time] 47.9 s High 23.0-32.4 [facility] Comment on above: Order Comment: Speci men Type: BLOOD SPECIMENOrdering Facility: [facility] Address: [address] [place], [place] [address] Performed By: #### P TTAC ####[facility] LABCLIA [id number] [address] [place] [facility] aPTT Coag (PPP) [Time] 46.5 s High 23.0-32.4 [facility] Comment on above: Order Comment: Speci men Type: BLOOD SPECIMENOrdering Facility: [facility] Address: [address] [place] [address] Performed By: #### P TTAC ####[facility] LABCLIA [id number] [place] [address] [place] Renal function 2000 panelon 11-12-2021 Albumin [Mass/Vol] 2.7 g/dL Low 3.9-4.9 [facility] Comment on above: Order Comment: Speci men Type: BLOOD SPECIMENOrdering Facility: [facility] Address: [address] [place] [address] Performed By: #### 2 4362-6 ####[facility] LABCLIA [id number] [place] [address] [place] Anion gap [Moles/Vol] 11 mmol/L Normal 9-18 [facility] Comment on above: Order Comment: Speci men Type: BLOOD SPECIMENOrdering Facility: [facility] Address: [address] [place], [place] [address] Performed By: #### 2 4362-6 ####[facility] LABIA [id number] [place] [address] [place] Calcium [Mass/Vol] 8.3 mg/dL Low 8.5-10.2 [facility] Comment on above: Order Comment: Speci men Type: BLOOD SPECIMENOrdering Facility: [facility] Address: [address] [place] [address] Performed By: #### 2 4362-6 ####[facility] LABIA [id number] [place] [address] [place] Chloride [Moles/Vol] 111 mmol/L High 97-105 [facility] Comment on above: Order Comment: Speci men Type: BLOOD SPECIMENOrdering Facility: [facility] Address: [address] [place], [place] [address] Performed By: #### 2 4362-6 ####[facility] LABIA [id number] [place] [address] [place] CO2 [Moles/Vol] 21 mmol/L Low 22-30 [facility] Comment on above: Order Comment: Speci men Type: BLOOD SPECIMENOrdering Facility: [facility] Address: [address] [place] [address] Performed By: #### 2 4362-6 ####[facility] LABIA [id number] [place] [address] [place] Creatinine [Mass/Vol] 1.07 mg/dL Normal 0.73-1.22 [facility] Comment on above: Order Comment: Speci men Type: BLOOD SPECIMENOrdering Facility: [facility] Address: [address] [place] [address] Performed By: #### 2 4362-6 ####[facility] LABIA [id number] [address] [place] ESTIMATED GLOMERULAR FILTRATION RATE 71 mL/min/1.73m??? Normal >=60 [facility] Comment on above: Order Comment: Speci men Type: BLOOD SPECIMENOrdering Facility: [facility] Address: [address] [place] [address] Result Comment: Sandra mated Glomerular Filtration Rate [...] actual GFR. Performed By: #### 2 4362-6 ####[facility] LABIA [id number] [place] [address] [place] Glucose [Mass/Vol] 133 mg/dL High 74-99 [facility] Comment on above: Order Comment: Speci men Type: BLOOD SPECIMENOrdering Facility: [facility] Address: [address] [place] [address] Result Comment: The Citizen Of [place] Diabetes Association (ADA) provides guidance for cutoff [...] Standards of Medical Care in Diabetes 2016, [place] Diabetes Association. Diabetes Care. 2016.39(Suppl 1). Performed By: #### 2 4362-6 ####[facility] LABCLIA [id number] [place] [address] [place] Phosphate [Mass/Vol] 2.8 mg/dL Normal 2.7-4.8 [facility] Comment on above: Order Comment: Speci men Type: BLOOD SPECIMENOrdering Facility: [facility] Address: [address] [place] [address] Performed By: #### 2 4362-6 ####[facility] LABIA [id number] [place] [address] [place] Potassium [Moles/Vol] 3.0 mmol/L Low 3.7-5.1 [facility] Comment on above: Order Comment: Speci men Type: BLOOD SPECIMENOrdering Facility: [facility] Address: [address] [place] [address] Performed By: #### 2 4362-6 ####[facility] LABCLIA [id number] [place] [address] [place] Sodium [Moles/Vol] 143 mmol/L Normal 136-144 [facility] Comment on above: Order Comment: Speci men Type: BLOOD SPECIMENOrdering Facility: [facility] Address: [address] [place] [address] Performed By: #### 2 4362-6 ####[facility] LABCLIA [id number] [address] [place] Urea nitrogen [Mass/Vol] 9 mg/dL Normal 9-24 [facility] Comment on above: Order Comment: Speci men Type: BLOOD SPECIMENOrdering Facility: [facility] Address: [address] [place] [address] Performed By: #### 2 4362-6 ####[facility] LABCLIA [id number] [place] [address] [place] THERAPY NTon 11-12-2021 THERAPY NT Normal [facility] CBC panel Auto (Bld)on 11-11 Erythrocyte distribution width (RBC) [Ratio] 13.6 % Normal 11.5-15.0 [facility] Comment on above: Order Comment: Speci men Type: BLOOD SPECIMENOrdering Facility: [facility] Address: [address] [place] [address] Performed By: #### 5 8410-2 ####[facility] LABIA [id number] [address] [place] Hematocrit (Bld) [Volume fraction] 27.6 % Low 39.0-51.0 [facility] Comment on above: Order Comment: Speci men Type: BLOOD SPECIMENOrdering Facility: [facility] Address: [address] [place] [address] Performed By: #### 5 8410-2 ####[facility] LABCLIA [id number] [place] [address] [place] Hemoglobin (Bld) [Mass/Vol] 8.9 g/dL Low 13.0-17.0 [facility] Comment on above: Order Comment: Speci men Type: BLOOD SPECIMENOrdering Facility: [facility] Address: [address] [place] [address] Performed By: #### 5 8410-2 ####[facility] LABCLIA [id number] [place] [address] [place] MCH (RBC) [Entitic mass] 30.3 pg Normal 26.0-34.0 [facility] Comment on above: Order Comment: Speci men Type: BLOOD SPECIMENOrdering Facility: [facility] Address: [address] [place], [place] [address] Performed By: #### 5 8410-2 ####[facility] LABCLIA [id number] [address] [place] MCHC (RBC) [Mass/Vol] 32.2 g/dL Normal 30.5-36.0 [facility] Comment on above: Order Comment: Speci men Type: BLOOD SPECIMENOrdering Facility: [facility] Address: [address] [place], [place] [address] Performed By: #### 5 8410-2 ####[facility] LABCLIA [id number] [address] [place] MCV (RBC) [Entitic vol] 93.9 fL Normal 80.0-100.0 [facility] Comment on above: Order Comment: Speci men Type: BLOOD SPECIMENOrdering Facility: [facility] Address: [address] [place], [place] [address] Performed By: #### 5 8410-2 ####[facility] LABCLIA [id number] [address] [place] Nucleated RBC (Bld) [#/Vol] 10*3/uL Normal <0.01 [facility] Comment on above: Order Comment: Speci men Type: BLOOD SPECIMENOrdering Facility: [facility] Address: [address] [place], [place] [address] Performed By: #### 5 8410-2 ####[facility] LABCLIA [id number] [address] [place] Platelet mean volume (Bld) [Entitic vol] 9.4 fL Normal 9.0-12.7 [facility] Comment on above: Order Comment: Speci men Type: BLOOD SPECIMENOrdering Facility: [facility] Address: [address] [place] [address] Performed By: #### 5 8410-2 ####[facility] LABCLIA [id number] [place] [address] [place] Platelets (Bld) [#/Vol] 351 10*3/uL Normal 150-400 [facility] Comment on above: Order Comment: Speci men Type: BLOOD SPECIMENOrdering Facility: [facility] Address: [address] [place] [address] Performed By: #### 5 8410-2 ####[facility] LABIA [id number] [place] [address] [place] RBC (Bld) [#/Vol] 2.94 10*6/uL Low 4.20-6.00 [place] Comment on above: Order Comment: Speci men Type: BLOOD SPECIMENOrdering Facility: [facility] Address: [address] [place] [address] Performed By: #### 5 8410-2 ####[facility] LABIA [id number] [address] [place] WBC (Bld) [#/Vol] 9.02 10*3/uL Normal 3.70-11.00 [place] Comment on above: Order Comment: Speci men Type: BLOOD SPECIMENOrdering Facility: [facility] Address: [address] [place] [address] Performed By: #### 5 8410-2 ####[facility] [facility] LAB[facility] [id number] [address] OF [facility] CONFIRM BLOOD TYPEon 022 ABO O Normal [facility] Comment on above: Order Comment: Speci men Type: BLOOD SPECIMENOrdering Facility: [facility] Address: [address] [place] [address] Performed By: #### C ONABO ####CC [facility] BLOOD BANKCLIA [id number] [place] [address] [place] Rh Nom (Bld) Positive Normal [facility] Comment on above: Order Comment: Speci men Type: BLOOD SPECIMENOrdering Facility: [facility] Address: [address] [place] [address] Performed By: #### C ONABO ####CC [facility] BLOOD BANKCLIA [id number] [place] [address] [place] Gastrointestinal pathogens i dentified SHELLY+probe Nom (Stl)on 11-11-2021 Campylobacter sp DNA SHELLY+probe Nom (Unsp spec) Not detected Normal Not Detected [facility] Comment on above: Order Comment: Speci men Type: STOOL SPECIMENOrdering Facility: [facility] Address: [address] [place] [address] Performed By: #### 7 9390-1 ####[facility] LABCLIA [id number] [place] [address] [place] Salmonella sp DNA SHELLY+probe Ql (Unsp spec) Not detected Normal Not Detected [facility] Comment on above: Order Comment: Speci men Type: STOOL SPECIMENOrdering Facility: [facility] Address: [address] [place], [place] [address] Performed By: #### 7 9390-1 ####[facility] LABCLIA [id number] [place] [address] [place] Shiga toxin stx gene SHELLY+probe Nom (Unsp spec) Not detected Normal Not Detected [facility] Comment on above: Order Comment: Speci men Type: STOOL SPECIMENOrdering Facility: [facility] Address: [address] [place], [place] [address] Performed By: #### 7 9390-1 ####[facility] LABCLIA [id number] [place] [id number] Shigella sp DNA SHELLY+probe Ql (Unsp spec) Not detected Normal Not Detected [facility] Comment on above: Order Comment: Speci men Type: STOOL SPECIMENOrdering Facility: [facility] Address: [address] [place] [address] Performed By: #### 7 9390-1 ####[facility] LABCLIA [id number] [address] PT panel Coag (PPP)on 2021 INR Coag (PPP) [Relative time] 1.1 {INR} Normal 0.9-1.3 [facility] Comment on above: Order Comment: Lucilai valerie Type: BLOOD SPECIMENOrdering Facility: [facility] Address: [address] [place] [address] Result Comment: Pippa min K Antagonist (VKA) Therapeutic Range: INR 2 to 3 (Target INR of 2.5)Note: For patients treated with VKA drugs, such as warfarin, the [place] [employer] Chest Physicians 2012 Guideline recommends [...] al. Chest 2012, 141:7S-47SLars RA, et al. [facility] 2017, 70: 252-289 Performed By: #### 3 4528-0, 45786-6 ####[facility] LABCLIA [id number] [address] [place] PT Coag (PPP) [Time] 11.1 s Normal 9.7-13.0 [facility] Comment on above: Order Comment: Speci men Type: BLOOD SPECIMENOrdering Facility: [facility] Address: [address] [place], [place] [address] Performed By: #### 3 4528-0, 96332-3 ####[facility] LABCLIA [id number] [place] [address] [place] Renal function 2000 panelon 11-11-2021 Albumin [Mass/Vol] 2.5 g/dL Low 3.9-4.9 [facility] Comment on above: Order Comment: Speci men Type: BLOOD SPECIMENOrdering Facility: [facility] Address: [address] [place], [place] [address] Performed By: #### 2 4362-6 ####[facility] LABCLIA [id number] [place] [address] [place] Anion gap [Moles/Vol] 11 mmol/L Normal 9-18 [facility] Comment on above: Order Comment: Speci men Type: BLOOD SPECIMENOrdering Facility: [facility] Address: [address] [place], [place] [address] Performed By: #### 2 4362-6 ####[facility] LABCLIA [id number] [place] [address] [place] Calcium [Mass/Vol] 8.5 mg/dL Normal 8.5-10.2 [facility] Comment on above: Order Comment: Speci men Type: BLOOD SPECIMENOrdering Facility: [facility] Address: [address] [place] [address] Performed By: #### 2 4362-6 ####[facility] LABCLIA [id number] [place] [address] [place] Chloride [Moles/Vol] 111 mmol/L High 97-105 [facility] Comment on above: Order Comment: Speci men Type: BLOOD SPECIMENOrdering Facility: [facility] Address: [address] [place], [place] [address] Performed By: #### 2 4362-6 ####[facility] LABCLIA [id number] [place] [address] [place] CO2 [Moles/Vol] 20 mmol/L Low 22-30 [facility] Comment on above: Order Comment: Speci men Type: BLOOD SPECIMENOrdering Facility: [facility] Address: [address] [place] [address] Performed By: #### 2 4362-6 ####[facility] LABCLIA [id number] [place] [address] [place] Creatinine [Mass/Vol] 1.19 mg/dL Normal 0.73-1.22 [facility] Comment on above: Order Comment: Speci men Type: BLOOD SPECIMENOrdering Facility: [facility] Address: [address] [place] [address] Performed By: #### 2 4362-6 ####[facility] LABIA [id number] [address] [place] ESTIMATED GLOMERULAR FILTRATION RATE 62 mL/min/1.73m??? Normal >=60 [facility] Comment on above: Order Comment: Speci men Type: BLOOD SPECIMENOrdering Facility: [facility] Address: [address] [place] [address] Result Comment: Sandra mated Glomerular Filtration Rate [...] actual GFR. Performed By: #### 2 4362-6 ####[facility] LABCLIA [id number] [place] [address] [place] Glucose [Mass/Vol] 101 mg/dL High 74-99 [facility] Comment on above: Order Comment: Speci men Type: BLOOD SPECIMENOrdering Facility: [facility] Address: [address] [place] [address] Result Comment: The Citizen Of [place] Diabetes Association (ADA) provides guidance for cutoff [...] Standards of Medical Care in Diabetes 2016, [place] Diabetes Association. Diabetes Care. 2016.39(Suppl 1). Performed By: #### 2 4362-6 ####[facility] LABIA [id number] [place] [address] [place] Phosphate [Mass/Vol] 3.3 mg/dL Normal 2.7-4.8 [facility] Comment on above: Order Comment: Speci men Type: BLOOD SPECIMENOrdering Facility: [facility] Address: [address] [place], [place] [address] Performed By: #### 2 4362-6 ####[facility] LABIA [id number] [place] [address] [place] Potassium [Moles/Vol] 3.7 mmol/L Normal 3.7-5.1 [facility] Comment on above: Order Comment: Speci men Type: BLOOD SPECIMENOrdering Facility: [facility] Address: [address] [place] [address] Performed By: #### 2 4362-6 ####[facility] LABIA [id number] [place] [address] [place] Sodium [Moles/Vol] 142 mmol/L Normal 136-144 [facility] Comment on above: Order Comment: Speci men Type: BLOOD SPECIMENOrdering Facility: [facility] Address: [address] [place] [address] Performed By: #### 2 4362-6 ####[facility] LABCLIA [id number] [place] [address] [place] Urea nitrogen [Mass/Vol] 10 mg/dL Normal 9-24 [facility] Comment on above: Order Comment: Speci men Type: BLOOD SPECIMENOrdering Facility: [facility] Address: [address] [place] [address] Performed By: #### 2 4362-6 ####[facility] LABIA [id number] [address] [place] THERAPY NTon 11-11-2021 THERAPY NT Normal [facility] THERAPY NT Normal [facility] THERAPY NT Normal [facility] THERAPY NT Normal [facility] XR ENTERIC TUBE INJECTIONon 11-11-2021 XR ENTERIC TUBE INJECTION Normal [facility] XR MOD BARIUM SWALLOW W SPEE Temo 11-11-2021 XR MOD BARIUM SWALLOW W SPEECH Normal [facility] aPTT PPPon 11-11-2021 aPTT Coag (PPP) [Time] 28.0 s Normal 23.0-32.4 [facility] Comment on above: Order Comment: Speci men Type: BLOOD SPECIMENOrdering Facility: [facility] Address: [address] [place] [address] Performed By: #### 3 4528-0, 78987-1 ####[facility] LABCLIA [id number] [place] [address] [place] Bacteria Bld Culton 11-11-19 22 Bacteria identified Cx Nom (Bld) ORGANISM ID: 1 Staphylococcus epidermidis Probable contaminant. Susceptibility testing will not be performed. Call lab within 72 hours to initiate workup if clinically indicated. GRAM STAIN: Gram positive cocci in clusters Abnormal [facility] Comment on above: Performed By: #### 6 00-7 ####[facility] LABCLIA [id number] [address] [place] Bacteria identified Cx Nom (Bld) CULTURE, BLOOD: No growth 5 days Normal [facility] Comment on above: Performed By: #### 6 00-7 ####[facility] LABCLIA [id number] [place] [address] [place] Bacteria Spec Resp Culton Bacteria identified Respiratory culture Nom (Unsp spec) Abnormal [facility] Comment on above: Performed By: #### 3 2355-0 ####[facility] LABCLIA [id number] [place] [address] [place] CASE MGT INIT ASSESon 2021 CASE MGT INIT ASSES Normal [place] CONSULTon 11-10-2021 CONSULT Normal [facility] CONSULT Normal [facility] CT ABD/PEL W IVCONon 022 CT ABD/PEL W IVCON Invalid Interpretation Code [facility] ED NOTEon 11-10-2021 ED NOTE HNO ID: [id number] Author: Radha Corley RN Service: Emergency Medicine Author Type: Registered Nurse Type: ED Notes Filed: 11/10/2021 12:24 AM Note Text: Pt to CT scan Normal [facility] HISTORY PHYSICALon HISTORY PHYSICAL Normal [facility] NUTRITIONon 11-10-2021 NUTRITION Normal [facility] PT panel Coag (PPP)on 2021 INR Coag (PPP) [Relative time] 1.1 {INR} Normal 0.9-1.3 [facility] Comment on above: Order Comment: Speci men Type: BLOOD SPECIMENOrdering Facility: [facility] Address: [address] [facility] [facility] [address] Result Comment: Pippa min K Antagonist (VKA) Therapeutic Range: INR 2 to 3 (Target INR of 2.5)Note: For patients treated with VKA drugs, such as warfarin, the Citizen Of [place] [employer] Chest Physicians 2012 Guideline recommends [...] al. Chest 2012, 141:7S-47SNishimura RA, et al. [facility] 2017, 70: 252-289 Performed By: #### 1 4979-9, 54770-3 ####[facility] LABCLIA [id number] [place] [address] [place] PT Coag (PPP) [Time] 11.4 s Normal 9.7-13.0 [facility] Comment on above: Order Comment: Speci men Type: BLOOD SPECIMENOrdering Facility: [facility] Address: [address] [place] [address] Performed By: #### 1 4979-9, 29980-7 ####[facility] LABCLIA [id number] [address] [place] THERAPY NTon 11-10-2021 THERAPY NT Normal [facility] TYPE + SCREENon 11-10-2021 ABO O Normal [facility] Comment on above: Order Comment: Speci men Type: BLOOD SPECIMENOrdering Facility: [facility] Address: [address] [place] [address] Performed By: #### T SCR ####CC [facility] BLOOD BANKCLIA [id number] [address] [place] HISTORICAL AB SCR STATUS Negative Normal [facility] Comment on above: Order Comment: Speci men Type: BLOOD SPECIMENOrdering Facility: [facility] Address: [address] [place], [place] [address] Performed By: #### T SCR ####CC [facility] BLOOD BANKCLIA [id number] [place] [address] [place] Rh Nom (Bld) Positive Normal [facility] Comment on above: Order Comment: Speci men Type: BLOOD SPECIMENOrdering Facility: [facility] Address: [address] [place] [address] Performed By: #### T SCR ####CC [facility] BLOOD BANKIA [id number] [address] OF [facility] TYPE AND SCREEN EXPIRATION 11/13/2021 23:59 Normal [facility] Comment on above: Order Comment: Speci men Type: BLOOD SPECIMENOrdering Facility: [facility] Address: [address] [place] [address] Performed By: #### T SCR ####CC [facility] BLOOD BANKIA [id number] [address] [place] Urinalysis complete panel (U )on 11-10-2021 Bacteria LM.HPF (Urine sed) [#/Area] Rare Abnormal None Seen [facility] Comment on above: Order Comment: Speci men Type: URINE SPECIMENOrdering Facility: [facility] Address: [address] [place] [address] Performed By: #### 2 4356-8 ####[facility] LABCLIA [id number] [place] [address] [place] Bilirubin Ql (U) Negative Normal Negative [facility] Comment on above: Order Comment: Speci men Type: URINE SPECIMENOrdering Facility: [facility] Address: [address] [place] [address] Performed By: #### 2 4356-8 ####[facility] LABCLIA [id number] [address] [place] Clarity (Unsp spec) Clear Normal Clear [place] Comment on above: Order Comment: Speci men Type: URINE SPECIMENOrdering Facility: [facility] Address: [address] [place], [place] [address] Performed By: #### 2 4356-8 ####[facility] LABCLIA [id number] [place] [address] [place] Color (U) Straw Normal Yellow [facility] Comment on above: Order Comment: Speci men Type: URINE SPECIMENOrdering Facility: [facility] Address: [address] [place], [place] [address] Performed By: #### 2 4356-8 ####[facility] LABCLIA [id number] [address] [place] Glucose Test strip (U) [Mass/Vol] Negative Normal Negative [facility] Comment on above: Order Comment: Speci men Type: URINE SPECIMENOrdering Facility: [facility] Address: [address] [place], [place] [address] Performed By: #### 2 4356-8 ####[facility] LABCLIA [id number] [place] [address] [place] Hemoglobin Ql (U) Negative Normal Negative [facility] Comment on above: Order Comment: Speci men Type: URINE SPECIMENOrdering Facility: [facility] Address: [address] [place], [place] [address] Performed By: #### 2 4356-8 ####[facility] LABCLIA [id number] [place] [address] [place] Ketones Ql (U) Negative Normal Negative [facility] Comment on above: Order Comment: Speci men Type: URINE SPECIMENOrdering Facility: [facility] Address: [address] [place], [place] [address] Performed By: #### 2 4356-8 ####[facility] LABCLIA [id number] [place] [address] [place] Leukocyte esterase Test strip Ql (U) 2+ Abnormal Negative [facility] Comment on above: Order Comment: Speci men Type: URINE SPECIMENOrdering Facility: [facility] Address: [address] [place], [place] [address] Performed By: #### 2 4356-8 ####[facility] LABCLIA [id number] [place] [address] [place] Nitrite Ql (U) Negative Normal Negative [facility] Comment on above: Order Comment: Speci men Type: URINE SPECIMENOrdering Facility: [facility] Address: [address] [place], [place] [address] Performed By: #### 2 4356-8 ####[facility] LABIA [id number] [place] [address] [place] pH (U) 6.0 [pH] Normal 5.0-8.0 [facility] Comment on above: Order Comment: Speci men Type: URINE SPECIMENOrdering Facility: [facility] Address: [address] [place], [place] [address] Performed By: #### 2 4356-8 ####[facility] LABIA [id number] [place] [address] [place] [facility] Protein (U) [Mass/Vol] 1+ Abnormal Negative [facility] Comment on above: Order Comment: Speci men Type: URINE SPECIMENOrdering Facility: [facility] Address: [address] [place], [place] [address] Performed By: #### 2 4356-8 ####[facility] LABIA [id number] [place] [address] [place] RBC LM.HPF (Urine sed) [#/Area] 0-3 /HPF Normal 0-3 /HPF [facility] Comment on above: Order Comment: Speci men Type: URINE SPECIMENOrdering Facility: [facility] Address: [address] [place], [place] [address] Performed By: #### 2 4356-8 ####[facility] LABIA [id number] [place] [address] [place] Specific gravity (U) [Rel density] 1.031 High 1.005-1.030 [facility] Comment on above: Order Comment: Speci men Type: URINE SPECIMENOrdering Facility: [facility] Address: [address] [place] [address] Performed By: #### 2 4356-8 ####[facility] LABIA [id number] [place] [address] [place] Urobilinogen Ql (U) Negative Normal Negative [place] Comment on above: Order Comment: Speci men Type: URINE SPECIMENOrdering Facility: [facility] Address: [address] [place] [address] Performed By: #### 2 4356-8 ####[facility] [id number] [place] [address] [place] WBC LM.HPF (Urine sed) [#/Area] 11-25 /HPF Abnormal 0-5 /HPF [facility] Comment on above: Order Comment: Speci men Type: URINE SPECIMENOrdering Facility: [facility] Address: [address] [place] [address] Performed By: #### 2 4356-8 ####[facility] LABIA [id number] [place] [address] [place] Yeast.budding LM.HPF (Urine sed) [#/Area] Few Abnormal None Seen [facility] Comment on above: Order Comment: Speci men Type: URINE SPECIMENOrdering Facility: [facility] Address: [address] [place], [place] [address] Performed By: #### 2 4356-8 ####[facility] LABIA [id number] [place] [address] [place] XR CHEST 2V FRONTAL/LATon XR CHEST 2V FRONTAL/LAT Normal [facility] aPTT PPPon 11-10-2021 aPTT Coag (PPP) [Time] 28.8 s Normal 23.0-32.4 [facility] Comment on above: Order Comment: Speci men Type: BLOOD SPECIMENOrdering Facility: [facility] Address: [address] [place] [address] Performed By: #### 1 4979-9, 42908-8 ####[facility] LABCLIA [id number] [place] [address] [place] CBC W Auto Differential pane l (Bld)on 11-09-2021 Basophils (Bld) [#/Vol] 0.09 10*3/uL Normal <0.11 [facility] Comment on above: Order Comment: Speci men Type: BLOOD SPECIMENOrdering Facility: [facility] Address: [address] [place] [address] Performed By: #### 5 7021-8, 82743-0 ####[facility] LABIA [id number] [place] [address] [place] Basophils/100 WBC (Bld) 0.6 % Normal [facility] Comment on above: Order Comment: Speci men Type: BLOOD SPECIMENOrdering Facility: [facility] Address: [address] [place] [address] Performed By: #### 5 7021-8, 70842-8 ####[facility] LABCLIA [id number] [address] [place] Differential cell count method Nom (Bld) Auto Normal [facility] Comment on above: Order Comment: Speci men Type: BLOOD SPECIMENOrdering Facility: [facility] Address: [address] [place] [address] Performed By: #### 5 7021-8, 00360-9 ####[facility] LABCLIA [id number] [place] [address] [place] Eosinophils (Bld) [#/Vol] 0.45 10*3/uL Normal <0.46 [facility] Comment on above: Order Comment: Speci men Type: BLOOD SPECIMENOrdering Facility: [facility] Address: [address] [place] [address] Performed By: #### 5 7021-8, 69991-0 ####[facility] LABCLIA [id number] [address] [place] Eosinophils/100 WBC (Bld) 3.2 % Normal [facility] Comment on above: Order Comment: Speci men Type: BLOOD SPECIMENOrdering Facility: [facility] Address: [address] [place] [address] Performed By: #### 5 7021-8, 96858-2 ####[facility] LABCLIA [id number] [address] STATES OF [facility] Erythrocyte distribution width (RBC) [Ratio] 13.5 % Normal 11.5-15.0 [facility] Comment on above: Order Comment: Speci men Type: BLOOD SPECIMENOrdering Facility: [facility] Address: [address] [place] [address] Performed By: #### 5 7021-8, 55248-9 ####[facility] LABCLIA [id number] [place] [address] [place] Hematocrit (Bld) [Volume fraction] 33.5 % Low 39.0-51.0 [facility] Comment on above: Order Comment: Speci men Type: BLOOD SPECIMENOrdering Facility: [facility] Address: [address] [place] [address] Performed By: #### 5 7021-8, 84759-3 ####[facility] LABCLIA [id number] [place] [address] [place] Hemoglobin (Bld) [Mass/Vol] 10.7 g/dL Low 13.0-17.0 [facility] Comment on above: Order Comment: Speci men Type: BLOOD SPECIMENOrdering Facility: [facility] Address: [address] [place], [place] [address] Performed By: #### 5 7021-8, 45813-2 ####[facility] LABCLIA [id number] [address] [place] IMMATURE GRAN % 0.8 % Normal [facility] Comment on above: Order Comment: Speci men Type: BLOOD SPECIMENOrdering Facility: [facility] Address: [address] [place], [place] [address] Performed By: #### 5 7021-8, 56579-6 ####[facility] LABCLIA [id number] [place] [address] [place] IMMATURE GRAN ABS 0.11 k/uL High <0.10 [facility] Comment on above: Order Comment: Speci men Type: BLOOD SPECIMENOrdering Facility: [facility] Address: [address] [place], [place] [address] Performed By: #### 5 7021-8, 24565-8 ####[facility] LABCLIA [id number] [place] [address] [place] Lymphocytes (Bld) [#/Vol] 1.73 10*3/uL Normal 1.00-4.00 [facility] Comment on above: Order Comment: Speci men Type: BLOOD SPECIMENOrdering Facility: [facility] Address: [address] [place], [place] [address] Performed By: #### 5 7021-8, 67664-9 ####[facility] LABCLIA [id number] [address] [place] Lymphocytes/100 WBC (Bld) 12.1 % Normal [facility] Comment on above: Order Comment: Speci men Type: BLOOD SPECIMENOrdering Facility: [facility] Address: [address] [place] [address] Performed By: #### 5 7021-8, 89115-4 ####[facility] LABCLIA [id number] [place] [address] [place] MCH (RBC) [Entitic mass] 30.1 pg Normal 26.0-34.0 [facility] Comment on above: Order Comment: Speci men Type: BLOOD SPECIMENOrdering Facility: [facility] Address: [address] [place], [place] [address] Performed By: #### 5 7021-8, 46102-7 ####[facility] LABIA [id number] [address] [place] MCHC (RBC) [Mass/Vol] 31.9 g/dL Normal 30.5-36.0 [facility] Comment on above: Order Comment: Speci men Type: BLOOD SPECIMENOrdering Facility: [facility] Address: [address] [place], [place] [address] Performed By: #### 5 7021-8, 54350-9 ####[facility] LABIA [id number] [place] [address] [place] MCV (RBC) [Entitic vol] 94.4 fL Normal 80.0-100.0 [facility] Comment on above: Order Comment: Speci men Type: BLOOD SPECIMENOrdering Facility: [facility] Address: [address] [place] [address] Performed By: #### 5 7021-8, 22532-7 ####[facility] LABIA [id number] [place] [address] [place] Monocytes (Bld) [#/Vol] 0.66 10*3/uL Normal <0.87 [facility] Comment on above: Order Comment: Speci men Type: BLOOD SPECIMENOrdering Facility: [facility] Address: [address] [place], [place] [address] Performed By: #### 5 7021-8, 04107-2 ####[facility] LABIA [id number] [place] [address] [place] Monocytes/100 WBC (Bld) 4.6 % Normal [facility] Comment on above: Order Comment: Speci men Type: BLOOD SPECIMENOrdering Facility: [facility] Address: [address] [place], [place] [address] Performed By: #### 5 7021-8, 48601-1 ####[facility] LABIA [id number] [place] [address] [place] Neutrophils (Bld) [#/Vol] 11.24 10*3/uL High 1.45-7.50 [facility] Comment on above: Order Comment: Speci men Type: BLOOD SPECIMENOrdering Facility: [facility] Address: [address] [place], [place] [address] Performed By: #### 5 7021-8, 55390-5 ####[facility] LABIA [id number] [place] [address] [place] Neutrophils/100 WBC (Bld) 78.7 % Normal [facility] Comment on above: Order Comment: Speci men Type: BLOOD SPECIMENOrdering Facility: [facility] Address: [address] [place] [address] Performed By: #### 5 7021-8, 77424-8 ####[facility] LABIA [id number] [place] [address] [place] Nucleated RBC (Bld) [#/Vol] 10*3/uL Normal <0.01 [facility] Comment on above: Order Comment: Speci men Type: BLOOD SPECIMENOrdering Facility: [facility] Address: [address] [place] [address] Performed By: #### 5 7021-8, 18277-7 ####[facility] LABCLIA [id number] [place] [address] [place] Nucleated RBC/100 WBC (Bld) [Ratio] 0.0 /100 WBC Normal [facility] Comment on above: Order Comment: Speci men Type: BLOOD SPECIMENOrdering Facility: [facility] Address: [address] [place] [address] Performed By: #### 5 7021-8, 39208-2 ####[facility] LABCLIA [id number] [place] [address] [place] Platelet mean volume (Bld) [Entitic vol] 9.2 fL Normal 9.0-12.7 [facility] Comment on above: Order Comment: Speci men Type: BLOOD SPECIMENOrdering Facility: [facility] Address: [address] [place] [address] Performed By: #### 5 7021-8, 81571-6 ####[facility] LABCLIA [id number] [place] [address] [place] Platelets (Bld) [#/Vol] 432 10*3/uL High 150-400 [facility] Comment on above: Order Comment: Speci men Type: BLOOD SPECIMENOrdering Facility: [facility] Address: [address] [place], [place] [address] Performed By: #### 5 7021-8, 07080-3 ####[facility] LABCLIA [id number] [place] [address] [place] RBC (Bld) [#/Vol] 3.55 10*6/uL Low 4.20-6.00 [place] Comment on above: Order Comment: Speci men Type: BLOOD SPECIMENOrdering Facility: [facility] Address: [address] [place] [address] Performed By: #### 5 7021-8, 08940-6 ####[facility] LABCLIA [id number] [address] [address] [place] WBC (Bld) [#/Vol] 14.28 10*3/uL High 3.70-11.00 [facility] Comment on above: Order Comment: Speci men Type: BLOOD SPECIMENOrdering Facility: [facility] Address: [address] [place] [address] Performed By: #### 5 7021-8, 30654-0 ####[facility] LABCLIA [id number] [place] [id number] [place] Comprehensive metabolic 2000 panelon 11-09-2021 Albumin [Mass/Vol] 3.4 g/dL Low 3.9-4.9 [facility] Comment on above: Order Comment: Speci men Type: BLOOD SPECIMENOrdering Facility: [facility] Address: [address] [place] [address] Performed By: #### 2 4323-8, 3040-3, 20066-1, 07824-8, 3016-3 ####[facility] LABCLIA [id number] [place] [address] [place] ALP [Catalytic activity/Vol] 92 U/L Normal 38-113 [facility] Comment on above: Order Comment: Speci men Type: BLOOD SPECIMENOrdering Facility: [facility] Address: [address] [place], [place] [address] Performed By: #### 2 4323-8, 3040-3, 16282-8, 02226-8, 3016-3 ####[facility] LABCLIA [id number] [place] [id number] [place] ALT [Catalytic activity/Vol] 6 U/L Low 10-54 [facility] Comment on above: Order Comment: Speci men Type: BLOOD SPECIMENOrdering Facility: [facility] Address: [address] [place], [place] [address] Performed By: #### 2 4323-8, 3040-3, 12433-9, 07391-7, 3016-3 ####[facility] LABCLIA [id number] [place] [address] [place] Anion gap [Moles/Vol] 12 mmol/L Normal 9-18 [facility] Comment on above: Order Comment: Speci men Type: BLOOD SPECIMENOrdering Facility: [facility] Address: [address] [place] [address] Performed By: #### 2 4323-8, 3040-3, 30405-8, 92892-4, 3016-3 ####[facility] LABIA [id number] [place] [address] [place] AST [Catalytic activity/Vol] 8 U/L Low 14-40 [facility] Comment on above: Order Comment: Speci men Type: BLOOD SPECIMENOrdering Facility: [facility] Address: [address] [place] [address] Performed By: #### 2 4323-8, 3040-3, 92025-5, 87784-9, 6-3 ####[facility] LABIA [id number] [place] [address] [place] Bilirubin [Mass/Vol] 0.2 mg/dL Normal 0.2-1.3 [facility] Comment on above: Order Comment: Speci men Type: BLOOD SPECIMENOrdering Facility: [facility] Address: [address] [place] [address] Performed By: #### 2 4323-8, 3040-3, 07340-6, 70742-2, 3016-3 ####[facility] LABCLIA [id number] [place] [address] [place] Calcium [Mass/Vol] 9.7 mg/dL Normal 8.5-10.2 [facility] Comment on above: Order Comment: Speci men Type: BLOOD SPECIMENOrdering Facility: [facility] Address: [address] [place], [place] [address] Performed By: #### 2 4323-8, 3040-3, 78773-8, 52131-3, 3015-3 ####[facility] LABCLIA [id number] [facility] [place] [address] [place] Chloride [Moles/Vol] 107 mmol/L High 97-105 [facility] Comment on above: Order Comment: Speci men Type: BLOOD SPECIMENOrdering Facility: [facility] Address: [address] [place], [place] [address] Performed By: #### 2 4323-8, 3040-3, 09122-0, 19357-7, 6-3 ####[facility] LABCLIA [id number] [facility] [place] [address] [place] CO2 [Moles/Vol] 22 mmol/L Normal 22-30 [facility] Comment on above: Order Comment: Speci men Type: BLOOD SPECIMENOrdering Facility: [facility] Address: [address] [place], [place] [address] Performed By: #### 2 4323-8, 3040-3, 28078-3, 99476-3, 6-3 ####[facility] LABCLIA [id number] [facility] [place] [address] [place] Creatinine [Mass/Vol] 1.13 mg/dL Normal 0.73-1.22 [facility] Comment on above: Order Comment: Speci men Type: BLOOD SPECIMENOrdering Facility: [facility] Address: [address] [place], [place] [address] Performed By: #### 2 4323-8, 3040-3, 97008-9, 19517-6, 6-3 ####[facility] LABCLIA [id number] [facility] [place] [id number] [place] ESTIMATED GLOMERULAR FILTRATION RATE 66 mL/min/1.73m??? Normal >=60 [facility] Comment on above: Order Comment: Misbah valerie Type: BLOOD SPECIMENOrdering Facility: [facility] Address: [address] [place] [address] Result Comment: Sandra mated Glomerular Filtration Rate [...] GFR. Performed By: #### 2 4323-8, 3040-3, 15300-4, 35312-8, 6-3 ####[facility] LABCLIA [id number] [address] [address] [place] Glucose [Mass/Vol] 130 mg/dL High 74-99 [facility] Comment on above: Order Comment: Misbah padilla Type: BLOOD SPECIMENOrdering Facility: [facility] Address: [address] [place] [address] Result Comment: The Citizen Of [place] Diabetes Association (ADA) provides guidance for cutoff [...] Standards of Medical Care in Diabetes 2016, Citizen Of [place] Diabetes Association. Diabetes Care. 2016.39(Suppl 1). Performed By: #### 2 4323-8, 3040-3, 17976-5, 20094-6, 6-3 ####[facility] LABCLIA [id number] [address] [address] [place] Potassium [Moles/Vol] 4.0 mmol/L Normal 3.7-5.1 [facility] Comment on above: Order Comment: Speci men Type: BLOOD SPECIMENOrdering Facility: [facility] Address: [address] [place] [address] Performed By: #### 2 4323-8, 3040-3, 88365-8, 97810-6, 3016-3 ####[facility] LABCLIA [id number] [place] [address] [place] Protein [Mass/Vol] 6.5 g/dL Normal 6.3-8.0 [facility] Comment on above: Order Comment: Speci men Type: BLOOD SPECIMENOrdering Facility: [facility] Address: [address] [place] [address] Performed By: #### 2 4323-8, 3040-3, 70200-4, 88789-5, 3016-3 ####[facility] LABCLIA [id number] [place] [address] [place] Sodium [Moles/Vol] 141 mmol/L Normal 136-144 [facility] Comment on above: Order Comment: Speci men Type: BLOOD SPECIMENOrdering Facility: [facility] Address: [address] [place] [address] Performed By: #### 2 4323-8, 3040-3, 52220-4, 63802-6, 3016-3 ####[facility] LABCLIA [id number] [place] [address] [place] Urea nitrogen [Mass/Vol] 13 mg/dL Normal 9-24 [facility] Comment on above: Order Comment: Speci men Type: BLOOD SPECIMENOrdering Facility: [facility] Address: [address] [place] [address] Performed By: #### 2 4323-8, 3040-3, 67019-5, 90604-0, 3016-3 ####[facility] LABCLIA [id number] [place] [id number] [place] ED NOTEon 11-09-2021 ED NOTE Normal [facility] ED PROV NOTEon 11-09-2021 ED PROV NOTE Normal [facility] HbA1c (Bld)on 11-09-2021 Average glucose Estimated from glycated hemoglobin (Bld) [Mass/Vol] 128 mg/dL Normal [facility] Comment on above: Order Comment: Speci men Type: BLOOD SPECIMENOrdering Facility: [facility] Address: [address] [place] [address] Result Comment: eAG: (Estimated average glucose) is a calculated value from HgbA1c and is financial foundations representative of the average blood glucose level in the last 2-3 month period. Performed By: #### 5 7021-8, 51583-5 ####[facility] LABCLIA [id number] [address] STATES OF [facility] HbA1c (Bld) [Mass fraction] 6.1 % High 4.3-5.6 [facility] Comment on above: Order Comment: Misbah padilla Type: BLOOD SPECIMENOrdering Facility: [facility] Address: [address] [place] [address] Result Comment: Amer ican Diabetes Association guidelines indicate that patients with HgbA1c in the range 5.7-6.4% are at increased risk for development of diabetes, and intervention by lifestyle modification may be beneficial. HgbA1c greater or equal to 6.5% is considered diagnostic of diabetes. Performed By: #### 5 7021-8, 25184-3 ####[facility] LABCLIA [id number] [address] [place] Iron and Iron binding capaci ty panelon 11-09-2021 Iron [Mass/Vol] 44 ug/dL Normal 41-186 [facility] Comment on above: Order Comment: Lucilai men Type: BLOOD SPECIMENOrdering Facility: [facility] Address: [address] [place] [address] Performed By: #### 2 4323-8, 3040-3, 23998-9, 13876-7, 3016-3 ####[facility] LABCLIA [id number] [place] [address] [place] Iron binding capacity [Mass/Vol] 139 ug/dL Low 232-386 [facility] Comment on above: Order Comment: Speci men Type: BLOOD SPECIMENOrdering Facility: [facility] Address: [address] [place] [address] Performed By: #### 2 4323-8, 3040-3, 99615-4, 28771-4, 3016-3 ####[facility] LABIA [id number] [place] [address] [place] Iron/TIBC [Molar ratio] 31.7 % Normal 15.0-57.0 [facility] Comment on above: Order Comment: Speci men Type: BLOOD SPECIMENOrdering Facility: [facility] Address: [address] [place] [address] Performed By: #### 2 4323-8, 3040-3, 21396-6, 35048-4, 3016-3 ####[facility] LABIA [id number] [place] [address] [place] Lipase SerPl-cCncon 11-10-19 Lipase [Catalytic activity/Vol] 13 U/L Low 16-61 [facility] Comment on above: Order Comment: Speci men Type: BLOOD SPECIMENOrdering Facility: [facility] Address: [address] [place] [address] Performed By: #### 2 4323-8, 3040-3, 30185-6, 56848-9, 3016-3 ####[facility] LABIA [id number] [place] [address] [place] Magnesium SerPl-mCncon 11-09 Magnesium [Mass/Vol] 2.0 mg/dL Normal 1.7-2.3 [facility] Comment on above: Order Comment: Speci men Type: BLOOD SPECIMENOrdering Facility: [facility] Address: [address] [place] [address] Performed By: #### 2 4323-8, 3040-3, 18479-7, 69501-6, 3016-3 ####[facility] LABIA [id number] [place] [address] [place] SARS-CoV-2 RNA Resp Ql SHELLY+p robeon 11-09-2021 SARS-CoV-2 (COVID-19) RNA SHELLY+probe Ql (Resp) COVID 19 RESULT: SARS-CoV-2 (Agent of COVID-19) Not Detected by RT-PCR or equivalent method. This test has been authorized by FDA under an Emergency Use Authorization (EUA). Normal [facility] Comment on above: Performed By: #### 9 4500-6 ####[facility] [id number] [place] [address] [place] TROPONIN Ton 11-09-2021 Troponin T.cardiac [Mass/Vol] 0.011 ug/L Normal 0.000-0.029 [facility] Comment on above: Order Comment: Speci men Type: BLOOD SPECIMENOrdering Facility: [facility] Address: [address] [place] [address] Performed By: #### T NT ####[facility] [id number] [place] [address] [place] TSH SerPl-aCncon 11-09-2021 TSH Qn 0.548 m[IU]/L Normal 0.270-4.200 [facility] Comment on above: Order Comment: Speci men Type: BLOOD SPECIMENOrdering Facility: [facility] Address: [address] [place] [address] Performed By: #### 2 4323-8, 3040-3, 21684-0, 54552-6, 3016-3 ####[facility] LABIA [id number] [place] [id number] [place] Echocardiogramon 11-04-2021 Echocardiography [facility] anayeli [address] [place] [address], [address], [place] [address] TRANSTHORACIC ECHOCARDIOGRAM REPORT Patient Name: FRANKI Maki Physician: [id number] Glenn HERNANDEZ MD Study Date: 11/04/2021 Referring Physician: [id number] LAURO COLLINS MRN/PID: [id number] PCP: Micheal Gutiérrez Accession/Order#: [id number] Department Location: [facility] Date of : 1940 Fellow: Gender: M Nurse: Admit Date: Thread Cutter: Zeenat Trejo RDCS, T Height: 180.34 cm CC Report to: Weight: 68.04 kg Study Type: Echocardiogram BSA: 1.87 m2 Blood Pressure: 142 /70 mmHg Diagnosis/ICD: R07.89-Other chest pain; I25.5-Ischemic cardiomyopathy Indication: Hyperlipidemia, CAD, CT and PTCA-06/2021, CHF, COPD, Tobacco Abuse, Peripheral Vascular Disease, Right SFA Stent Procedure/CPT: Echo Complete w Full Doppler-71650 Study Detail: The following Echo studies were [...] 1.3 m/s (0.6-0.9m/s) PV Max P.7 mmHg [id number] Glenn Kapoor MD Electronically signed on 11/05/2021 at 9:06:[address] [facility] VASC LAB PVR W/O EXERCISEon 11-04-2021 VASC LAB PVR W/O EXERCISE [address], [address] [place] [address] Vascular Lab Report PVR With Out Exercise Patient Name: FRANKI Glynn Physician: [id number] Saige Bassett MD, [facility] Study Date: 11/04/2021 Referring 26452 LAURO COLLINS Physician: MRN/PID: [id number] PCP: Micheal Gutiérrez Accession/Order#: [id number] CC Report to: Date of : 1940 Technologist: Zeenat Trejo RDCS [facility] Gender: M Technologist 2: Admission Status: Outpatient Location Performed: [facility] Diagnosis/ICD: I73.9-Peripheral vascular disease, unspecified Indication: Hyperlipidemia, CAD, CT and PTCA-06/2021, Chest Discomfort, CHF, COPD, Tobacco Abuse, Right SFA Stent Procedure/CPT: 22199 Peripheral artery PVR (multi segmental pressure)-56273 CONCLUSIONS: Right Lower PVR: There is evidence [...] Left Brachial Pressure 138 mmHg 132 mmHg [id number] Saige Bassett MD, FACC Final Normal [facility] VAS LAB PVR W/O EXERCISE -[facility] Heart-Sandu marika 250 DO Work Phone: GI PANEL (PCR)on 10-28-2021 Adenovirus F 40/41 Not detected Normal NOT DETECTED [facility] Comment on above: Performed By: #### G IPANEL ####[facility] [address] [place], [place] [address]Dr. Villa Yanes Astrovirus Not detected Normal NOT DETECTED [facility] Comment on above: Performed By: #### G IPANEL ####[facility] Thskeob[address] [place], [place] [address]Dr. Villa Yanes C. Diff toxin A/B Not detected Normal NOT DETECTED [facility] Comment on above: Performed By: #### G IPANEL ####[facility] Re[address] [place], [place] [address]Dr. Villa Yanes Campylobacter Not detected Normal NOT DETECTED [facility] Comment on above: Performed By: #### G IPANEL ####[facility] Aikyepketr[address] [place], [place] [address]Dr. Villa Yanes Cryptosporidium Not detected Normal NOT DETECTED [facility] Comment on above: Performed By: #### G IPANEL ####[facility] I[address] [place], [place] [address]Dr. Villa Yanes Cyclos. Cayetanensis Not detected Normal NOT DETECTED [facility] Comment on above: Performed By: #### G IPANEL ####[facility] Sm[address]ef[address]hq[address] [place], [place] [address]Dr. karen Yanes E. Coli O157 Not Applicable Normal Not Applicable [facility] Comment on above: Performed By: #### G IPANEL ####[facility] [address] [place], [place] [address]Dr. Brooklynkaren Yanes E. histolytica Not detected Normal NOT DETECTED [facility] Comment on above: Performed By: #### G IPANEL ####[facility] [address] [place], [place] [address]Dr. [facility] EAEC Not detected Normal NOT DETECTED [facility] Comment on above: Performed By: #### G IPANEL ####[facility] [address]fem[address] [place], [place] [address]Dr. [facility] EIEC Not detected Normal NOT DETECTED [facility] Comment on above: Performed By: #### G IPANEL ####[facility] P[address]qr[address] [place], [place] [address]Dr. Brooklynkaren [facility] EPEC Not detected Normal NOT DETECTED [facility] Comment on above: Performed By: #### G IPANEL ####[facility] I[address] [place], [place] [address]Dr. karen Yanes ETEC Not detected Normal NOT DETECTED [facility] Comment on above: Performed By: #### G IPANEL ####[facility] [address] [place], [place] [address]Dr. Villa Yanes G. Lamblia Not detected Normal NOT DETECTED [facility] Comment on above: Performed By: #### G IPANEL ####[facility] [address] [place], [place] [address]Dr. Villa Yanes GIPANEL CONTROLS PASSED Normal [facility] Comment on above: Performed By: #### G IPANEL ####[facility] Wy[address]bi[address] [place], [place] [address]Dr. Villa Yanes GIPNL MASSIMO HEADER GI PANEL BACTERIA Normal T [facility] Comment on above: Performed By: #### G IPANEL ####[facility] F[address]zw[address] [place], [place] [address]Dr. Villa Yanes [facility] ECOLI GI PANEL DIARRHEAGEN IC E.COLI / SHIGELLA Normal [facility] Comment on above: Performed By: #### G IPANEL ####[facility] T[address] [place], [place] [address]Dr. Villa Yanes [facility] INFO SEE BELOW Normal [facility] Comment on above: Result Comment: EAEC - Enteroaggregative E. Coli EPEC- Enteropathogenic E. Coli ETEC- Enterotoxigenic E. Coli lt/st STEC- Shigella-like toxin-producing E. Coli stx1/stx2 EIEC- Shigella/Enteroinvasive E. Coli Performed By: #### G IPANEL ####[facility] Clavekwean[address] [place], [place] [address]Dr. Villa Yanes GIPNLHD PARASITES GI PANEL PARASITES Normal The [facility] Comment on above: Performed By: #### G IPANEL ####[facility] Uugqidopbc44[address] [place], [place] [address]Dr. Villa Yanes GIPATRIUM HEALTH VIRUS GI PANEL VIRUSES Normal The [facility] Comment on above: Performed By: #### G IPANEL ####[facility] Nskuubjprf534[address] [place], [place] [address]Dr. Villa Yanes Norovirus GI/GII Not detected Normal NOT DETECTED The [facility] Comment on above: Performed By: #### G IPANEL ####[facility] Fhczsbncon[address] [place], [place] [address]Dr. Villa Yanes P. Shigelloides Not detected Normal NOT DETECTED The [facility] Comment on above: Performed By: #### G IPANEL ####[facility] Orytzkboeu98[address] [place], [place] [address]Dr. Villa Yanes Rotavirus A Not detected Normal NOT DETECTED The [facility] Comment on above: Performed By: #### G IPANEL ####[facility] Mzkqippndp64[address] [place], [place] [address]Dr. Villa Yanes Salmonella Not detected Normal NOT DETECTED The [facility] Comment on above: Performed By: #### G IPANEL ####[facility] Teowvqaqbb[address] [place], [place] [id number]. Villa Yanes Sapovirus Not detected Normal NOT DETECTED The [facility] Comment on above: Performed By: #### G IPANEL ####[facility] Irtzeinmyc289[address] [place], [place] [address]Dr. Villa Yanes STEC Not detected Normal NOT DETECTED The [facility] Comment on above: Performed By: #### G IPANEL ####[facility] Obiekuxzby687[address] [place], [place] [address]Dr. Villa Yanes Vibrio Not detected Normal NOT DETECTED The [facility] Comment on above: Performed By: #### G IPANEL ####[facility] Glhjrslacz632[address] [place], [place] [address]Dr. Villa Yanes Vibrio Cholera Not detected Normal NOT DETECTED The [facility] Comment on above: Performed By: #### G IPANEL ####[facility] Lzxkufxeiu2840[address] [place], [place] [address]Dr. Villa Yanes Y. Enterocolitica Not detected Normal NOT DETECTED The [facility] Comment on above: Performed By: #### G IPANEL ####[facility] Vlsdrhcdqy635[address] [place], [place] [address]Dr. Villa Joaquín BNPon 10-13-2021 Natriuretic peptide B (Bld) [Mass/Vol] 2844.0 pg/mL Critically high <=1,800.0 The [facility] Comment on above: Result Comment: Test Repeated Critical Value Verified Performed By: #### C MP, BNP ####[facility] Gkcbfaafkd826[address] [place], [place] [address]Dr. Brooklynkaren Yanes CBC AUTO DIFFon 10-13-2021 BASO # 0.1 103/ul Normal 0.0-0.1 [facility] Comment on above: Performed By: #### C BC ####[facility] Doagqmacez794[address] [place], [place] [address]Dr. Villa Yanes Basophils/100 WBC (Bld) 0.8 % Normal 0.2-2.0 [facility] Comment on above: Performed By: #### C BC ####[facility] Simpuddgcr3811[address] [place], [place] [address]Dr. Villa Yanes EO # 0.9 103/ul Critically high 0.0-0.7 [facility] Comment on above: Performed By: #### C BC ####[facility] Nzstcmminj41[address] [place] [address]Dr. Villa Yanes Eosinophils/100 WBC (Bld) 7.8 % Critically high 0.9-7.0 [facility] Comment on above: Performed By: #### C BC ####[facility] Nyjdwedvyh201[address] [place], [place] [address]Dr. Villa Yanes Erythrocyte distribution width (RBC) [Ratio] 13.1 % Normal 11.0-15.0 [facility] Comment on above: Performed By: #### C BC ####[facility] Wvqzgflmkh334[address] [place], [place] [address]Dr. Villa Yanes Hematocrit (Bld) [Volume fraction] 29.3 % Critically low 42.0-54.0 The [facility] Comment on above: Performed By: #### C BC ####[facility] Utxqunklnf0213[address] [place], [place] [address]Dr. Villa Yanes Hemoglobin (Bld) [Mass/Vol] 9.3 g/dL Critically low 14.0-18.0 [facility] Comment on above: Performed By: #### C BC ####[facility] Ajgccoqvks6533[address] [place], [place] [address]Dr. Villa Joaquín IG # 0.18 10e3/ul Critically high 0.00-0.03 [facility] Comment on above: Performed By: #### C BC ####[facility] Klitddfoye208[address] [place], [place] [address]Dr. Villa Joaquín IG % 1.5 % Critically high 0.0-0.5 [facility] Comment on above: Performed By: #### C BC ####[facility] Rijhtngejs744[address] [place], [place] [address]Dr. Brooklynkaren Joaquín LYMPH # 1.7 103/ul Normal 1.2-3.8 [facility] Comment on above: Performed By: #### C BC ####[facility] Xrothloyjc860[address] [place], [place] [address]Dr. Villa Yanes Lymphocytes/100 WBC (Bld) 14.7 % Critically low 20.5-60.0 The [facility] Comment on above: Performed By: #### C BC ####[facility] Ojkbroefdg[address] [place] [address]DrBrenden Yanes MANUAL DIFF REQ NO Normal [facility] Comment on above: Performed By: #### C BC ####[facility] Cushfdmhtl[address] [place] [address]Dr. Villa Yanes MCH (RBC) [Entitic mass] 30.1 pg Normal 25.9-34.0 [facility] Comment on above: Performed By: #### C BC ####[facility] Hjkvdcwubu49[address] [place] [address]Dr. Villa Yanes MCHC (RBC) [Mass/Vol] 31.7 g/dL Normal 29.9-35.2 [facility] Comment on above: Performed By: #### C BC ####[facility] Vsxnbaqniu[address] [place], [place] [address]DrBrenden Yanes MCV (RBC) [Entitic vol] 94.8 fL Critically high 80.0-94.0 [facility] Comment on above: Performed By: #### C BC ####[facility] Dvmeloqrzz220[address] [place], [place] [address]Dr. Villa Yanes MONO # 0.7 103/ul Normal 0.3-0.8 [facility] Comment on above: Performed By: #### C BC ####[facility] Bpirxmqkfv2217[address] [place], [place] [address]DrBrenden Yanes Monocytes/100 WBC (Bld) 6.1 % Normal 1.7-12.0 [facility] Comment on above: Performed By: #### C BC ####[facility] Uwxtmhmhla[address] [place], [place] [address]DrBrenden Yanes NEUT # 8.1 103/ul Critically high 1.4-6.5 [facility] Comment on above: Performed By: #### C BC ####[facility] Epoyjnacqt829[address] [place], [place] [address]DrBrenden Yanes Neutrophils/100 WBC (Bld) 69.1 % Normal 43.0-75.0 [facility] Comment on above: Performed By: #### C BC ####[facility] Zvoojjhqqb80[address] [place] [address]Dr. Villa Yanes Platelet mean volume (Bld) [Entitic vol] 9.7 fL Normal 9.5-13.5 [facility] Comment on above: Performed By: #### C BC ####[facility] Dwkbwbkfom5995 [place] [address]Dr. Villa Yanes PLT 408 103/ul Normal 150-450 [facility] Comment on above: Performed By: #### C BC ####[facility] Lylpleqolu3[address] [place] [address]Dr. Villa Yanes RBC 3.09 106/ul Critically low 4.70-6.10 [facility] Comment on above: Performed By: #### C BC ####[facility] Tnehuvpyoc[address]41 [place] [address]Dr. Villa Yanes WBC 11.7 103/ul Critically high 4.0-11.0 [facility] Comment on above: Performed By: #### C BC ####[facility] Aarlmrhyrl[address] [place], [place] [address]Dr. Villa Yanes POINT OF CARE GLUCOSEon 09-22 Glucose [Mass/Vol] 216 mg/dL Critically high 74-106 [facility] Comment on above: Performed By: #### P OCGLUC ####[facility] Eiyeqohomq3346 [place] [address]Dr. Villa Yanes Glucose [Mass/Vol] 217 mg/dL Critically high 74-106 [facility] Comment on above: Performed By: #### P OCGLUC ####[facility] Gmlzpuudbq[address] [place], [place] [address]DrBrenden Villa Yanes PROF 14(COMP METB)on 022 Albumin [Mass/Vol] 2.0 g/dL Critically low 3.4-5.[address] [facility] Comment on above: Performed By: #### C MP, BNP ####[facility] Bnyjadqhux[address] [place] [id number]. Villa Yanes Albumin/Globulin [Mass ratio] 0.5 {ratio} Normal [facility] Comment on above: Performed By: #### C MP, BNP ####[facility] Yyghwyvbtz8615 [place] [id number]. Villa Joaquín ALP [Catalytic activity/Vol] 122 U/L Critically high 46-116 [facility] Comment on above: Performed By: #### C MP, BNP ####[facility] Gpmverfdrd6971 [place] [id number]. Villa Joaquín ALT [Catalytic activity/Vol] 12 U/L Critically low 16-63 [facility] Comment on above: Performed By: #### C MP, BNP ####[facility] Jfpkihdmot1049 [place] [address]Dr. Villa Yanes Anion gap [Moles/Vol] 11.6 mmol/L Normal [facility] Comment on above: Performed By: #### C MP, BNP ####[facility] Dxqmmapmha7538 [place] [address]Dr. Brooklynkaren Yanes AST [Catalytic activity/Vol] 7 U/L Critically low 15-37 [facility] Comment on above: Performed By: #### C MP, BNP ####[facility] Yrkwgynwhe2266 [place] [address]Dr. Villa Yanes Bilirubin [Mass/Vol] 0.1 mg/dL Critically low 0.2-1.0 [facility] Comment on above: Performed By: #### C MP, BNP ####[facility] Dwsrbxuyck2028 [place] [id number]. Villa Yanes Calcium [Mass/Vol] 8.3 mg/dL Critically low 8.5-10.1 [facility] Comment on above: Performed By: #### C MP, BNP ####[facility] Rluiurldor7361 [place] [id number]. Villa Yanes Chloride [Moles/Vol] 100 mmol/L Normal 98-107 [facility] Comment on above: Performed By: #### C MP, BNP ####[facility] Tgtvmgbsgq8174 [place] [address]Dr. Villa Yanes CO2 [Moles/Vol] 28.5 mmol/L Normal 21.0-32.0 [facility] Comment on above: Performed By: #### C MP, BNP ####[facility] Qpeegmgkhk2420 [place] [address]Dr. Villa Yanes Creatinine [Mass/Vol] 1.13 mg/dL Normal 0.70-1.30 [facility] Comment on above: Performed By: #### C MP, BNP ####[facility] Sgyzqejsyh613[address] [place], [place] [address]Dr. Villa Yanes EGFR-AF MACEDONIAN >60 Normal >=60 [facility] Comment on above: Performed By: #### C MP, BNP ####[facility] Xyjaufsitx490[address] [place], [place] [address]Dr. Villa Yanes EGFR-NON AF MACEDONIAN >60 Normal >=60 [facility] Comment on above: Performed By: #### C MP, BNP ####[facility] Vkbciillgj6155 [place] [address]Dr. Villa Yanes Globulin (S) [Mass/Vol] 3.7 g/dL Normal [facility] Comment on above: Performed By: #### C MP, BNP ####[facility] Xmrojxenkw4244 [place] [address]Dr. Villa Yanes Glucose [Mass/Vol] 241 mg/dL Critically high 74-106 [facility] Comment on above: Performed By: #### C MP, BNP ####[facility] Auwgtpywpg1136 [place] [address]Dr. Villa Yanes Potassium [Moles/Vol] 4.1 mmol/L Normal 3.5-5.1 [facility] Comment on above: Performed By: #### C MP, BNP ####[facility] Puyduqowou055[address] [place], [place] [address]Dr. Villa Yanes Protein [Mass/Vol] 5.7 g/dL Critically low 6.4-8.[address] [facility] Comment on above: Performed By: #### C MP, BNP ####[facility] Mdjfmrzjjp[address] [place], [place] [address]Dr. Villa Yanes Sodium [Moles/Vol] 136 mmol/L Normal 136-145 [facility] Comment on above: Performed By: #### C MP, BNP ####[facility] Ypzybqelxb49[address] [place], [place] [address]Dr. Villa Joaquín Urea nitrogen [Mass/Vol] 29.0 mg/dL Critically high 7.0-18.0 [facility] Comment on above: Performed By: #### C MP, BNP ####[facility] Teyhjclzxc833[address] [place], [place] [address]Dr. Brooklynkaren Yanes Urea nitrogen/Creatinine [Mass ratio] 25.7 mg/mg Normal [facility] Comment on above: Performed By: #### C MP, BNP ####[facility] Inraezgtvg614[address] [place], [place] [address]Dr. Villa Joaquín BNPon 10-12-2021 Natriuretic peptide B (Bld) [Mass/Vol] 4274.0 pg/mL Critically high <=1,800.0 The [facility] Comment on above: Result Comment: Test Repeated. Critical Value Verified Performed By: #### B TIN POT OPERATOR, CMP ####[facility] Xihwrtxgqv[address] [place], [place] [address]Dr. Villa Joaquín CBC AUTO DIFFon 10-12-2021 BASO # 0.1 103/ul Normal 0.0-0.1 [facility] Comment on above: Performed By: #### C BC ####[facility] Gttobbqikw6764[address] [place], [place] [address]Dr. Villa Yanes Basophils/100 WBC (Bld) 0.6 % Normal 0.2-2.0 [facility] Comment on above: Performed By: #### C BC ####[facility] Uieuokgdbo8417[address] [place], [place] [address]Dr. Villa Yanes EO # 0.6 103/ul Normal 0.0-0.7 [facility] Comment on above: Performed By: #### C BC ####[facility] Jfhowfygtg[address] [place], [place] [address]Dr. Villa Yanes Eosinophils/100 WBC (Bld) 4.2 % Normal 0.9-7.0 [facility] Comment on above: Performed By: #### C BC ####[facility] Defngvmren0383 [place] [address]Dr. Villa Yanes Erythrocyte distribution width (RBC) [Ratio] 12.9 % Normal 11.0-15.0 [facility] Comment on above: Performed By: #### C BC ####[facility] Aasyeldvti68[address] [place], [place] [address]Dr. Villa Yanes Hematocrit (Bld) [Volume fraction] 31.5 % Critically low 42.0-54.0 [facility] Comment on above: Performed By: #### C BC ####[facility] Rihmoufppg269[address] [place], [place] [address]Dr. Villa Yanes Hemoglobin (Bld) [Mass/Vol] 9.9 g/dL Critically low 14.0-18.0 [facility] Comment on above: Performed By: #### C BC ####[facility] Osciidldxk7[address] [place], [place] [address]Dr. Villa Yanes IG # 0.10 10e3/ul Critically high 0.00-0.03 [facility] Comment on above: Performed By: #### C BC ####[facility] Rxjdrectpa2513[address] [place], [place] [address]Dr. Villa Yanes IG % 0.7 % Critically high 0.0-0.5 [facility] Comment on above: Performed By: #### C BC ####[facility] Gsxmhlhfxk12[address] [place], [place] [address]Dr. Villa Yanes LYMPH # 1.9 103/ul Normal 1.2-3.8 [facility] Comment on above: Performed By: #### C BC ####[facility] Vgcnjfwjsd99[address] [place], [place] [address]Dr. Villa Yanes Lymphocytes/100 WBC (Bld) 13.2 % Critically low 20.5-60.0 [facility] Comment on above: Performed By: #### C BC ####[facility] Kdzuoluhyl7[address] [place] [id number]. Villa Yanes MANUAL DIFF REQ NO Normal [facility] Comment on above: Performed By: #### C BC ####[facility] Yicrnujlyr6756 [place] [id number]. Villa Yanes MCH (RBC) [Entitic mass] 30.1 pg Normal 25.9-34.0 [facility] Comment on above: Performed By: #### C BC ####[facility] Kcjlftvxtn9111 [place] [address]Dr. Villa Yanes MCHC (RBC) [Mass/Vol] 31.4 g/dL Normal 29.9-35.2 [facility] Comment on above: Performed By: #### C BC ####[facility] Bsxvyynatl1053 [place] [address]Dr. Villa Yanes MCV (RBC) [Entitic vol] 95.7 fL Critically high 80.0-94.0 [facility] Comment on above: Performed By: #### C BC ####[facility] Hbarjitssm[address] [place], [place] [address]Dr. Villa Joaquín MONO # 0.8 103/ul Normal 0.3-0.8 [facility] Comment on above: Performed By: #### C BC ####[facility] Eekharzpip4746 [place] [address]Dr. Villa Joaquín Monocytes/100 WBC (Bld) 5.3 % Normal 1.7-12.0 [facility] Comment on above: Performed By: #### C BC ####[facility] Dvvzlmxvlq3964 [place] [address]Dr. Villa Yanes NEUT # 10.9 103/ul Critically high 1.4-6.5 [facility] Comment on above: Performed By: #### C BC ####[facility] Fatlmdyorc[address] [place], [place] [address]Dr. Brooklynkaren Yanes Neutrophils/100 WBC (Bld) 76.0 % Critically high 43.0-75.0 [facility] Comment on above: Performed By: #### C BC ####[facility] Qkalkczzwk4737 [place] [id number]. Villa Yanes Platelet mean volume (Bld) [Entitic vol] 9.6 fL Normal 9.5-13.5 [facility] Comment on above: Performed By: #### C BC ####[facility] Snhascwbdk4373 [place] [id number]. Villa Yanes PLT 372 103/ul Normal 150-450 [facility] Comment on above: Performed By: #### C BC ####[facility] Emwwhhbakw0974 [place] [address]Dr. Villa Yanes RBC 3.29 106/ul Critically low 4.70-6.10 [facility] Comment on above: Performed By: #### C BC ####[facility] Lrppmwkztx4356 [place] [address]Dr. Villa Yanes WBC 14.3 103/ul Critically high 4.0-11.0 [facility] Comment on above: Performed By: #### C BC ####[facility] Hvvudugmwi6144 [place] [address]Dr. Villa Yanes POINT OF CARE GLUCOSEon 09-22 Glucose [Mass/Vol] 196 mg/dL Critically high 74-106 [facility] Comment on above: Performed By: #### P OCGLUC ####[facility] Ujcmudyruc4637 [place] [address]Dr. Villa Yanes Glucose [Mass/Vol] 222 mg/dL Critically high 74-106 [facility] Comment on above: Performed By: #### P OCGLUC ####[facility] Stlgzqxvsu5387 [place] [address]Dr. Villa aYnes Glucose [Mass/Vol] 215 mg/dL Critically high 74-106 [facility] Comment on above: Performed By: #### P OCGLUC ####[facility] Xmrzjiwszu5463 [place] [address]Dr. Villa Yanes Glucose [Mass/Vol] 224 mg/dL Critically high -106 [facility] Comment on above: Performed By: #### P OCGLUC ####[facility] Qwkhcosvzs5859 [place] [address]Dr. Villa Yanes PROF 14(COMP METB)on 022 Albumin [Mass/Vol] 2.1 g/dL Critically low 3.4-5.[address] [facility] Comment on above: Performed By: #### B TIN POT OPERATOR, CMP ####[facility] Itszxybnwk2684 [place] [address]Dr. Villa Yanes Albumin/Globulin [Mass ratio] 0.5 {ratio} Normal [facility] Comment on above: Performed By: #### B TIN POT OPERATOR, CMP ####[facility] Qufccqlkar8936 [place] [address]Dr. Villa Yanes ALP [Catalytic activity/Vol] 127 U/L Critically high 46-116 [facility] Comment on above: Performed By: #### B TIN POT OPERATOR, CMP ####[facility] Bcuyvjydis[address] [place], [place] [address]Dr. Villa Yanes ALT [Catalytic activity/Vol] 12 U/L Critically low 16-63 [facility] Comment on above: Performed By: #### B TIN POT OPERATOR, CMP ####[facility] Wslplxhzsl3379 [place] [address]Dr. Villa Yanes Anion gap [Moles/Vol] 11.4 mmol/L Normal [facility] Comment on above: Performed By: #### B TIN POT OPERATOR, CMP ####[facility] Swfhubdgzs047[address] [place], [place] [address]Dr. Villa Yanes AST [Catalytic activity/Vol] 13 U/L Critically low 15-37 [facility] Comment on above: Performed By: #### B TIN POT OPERATOR, CMP ####[facility] Dexhhxmdts913[address] [place], [place] [address]Dr. Villa Yanes Bilirubin [Mass/Vol] 0.1 mg/dL Critically low 0.2-1.0 [facility] Comment on above: Performed By: #### B TIN POT OPERATOR, CMP ####[facility] Acaocazlbu655[address] [place], [place] [address]Dr. Villa Yanes Calcium [Mass/Vol] 8.8 mg/dL Normal 8.5-10.1 [facility] Comment on above: Performed By: #### B TIN POT OPERATOR, CMP ####[facility] Ofjkdqunjc2678 [place] [address]Dr. Villa Yanes Chloride [Moles/Vol] 103 mmol/L Normal 98-107 [facility] Comment on above: Performed By: #### B TIN POT OPERATOR, CMP ####[facility] Ooeafcwste8734 [place] [address]Dr. Villa Yanes CO2 [Moles/Vol] 28.4 mmol/L Normal 21.0-32.0 [facility] Comment on above: Performed By: #### B TIN POT OPERATOR, CMP ####[facility] Dhcqbztrda164[address] [place], [place] [address]Dr. Villa Yanes Creatinine [Mass/Vol] 1.13 mg/dL Normal 0.70-1.30 [facility] Comment on above: Performed By: #### B TIN POT OPERATOR, CMP ####[facility] Pnwcoytglh[address] [place], [place] [address]Dr. Villa Yanes EGFR-AF MACEDONIAN >60 Normal >=60 [facility] Comment on above: Performed By: #### B TIN POT OPERATOR, CMP ####[facility] Sauazqhlxq[address] [place], [place] [address]Dr. Villa Yanes EGFR-NON AF MACEDONIAN >60 Normal >=60 [facility] Comment on above: Performed By: #### B TIN POT OPERATOR, CMP ####[facility] Rpzkntrytt[address] [place], [place] [address]Dr. Villa Yanes Globulin (S) [Mass/Vol] 3.9 g/dL Normal [facility] Comment on above: Performed By: #### B TIN POT OPERATOR, CMP ####[facility] Abnkfmymmc5161 [place] [address]Dr. Villa Yanes Glucose [Mass/Vol] 151 mg/dL Critically high 74-106 T [facility] Comment on above: Performed By: #### B TIN POT OPERATOR, CMP ####[facility] Zokquyxxbz[address] [place], [place] [address]Dr. Villa Yanes Potassium [Moles/Vol] 3.8 mmol/L Normal 3.5-5.1 [facility] Comment on above: Performed By: #### B TIN POT OPERATOR, CMP ####[facility] Ixikctzmyy3371 [place] [address]Dr. [place]karen Yanes Protein [Mass/Vol] 6.0 g/dL Critically low 6.4-8.2 Th e [facility] Comment on above: Performed By: #### B TIN POT OPERATOR, CMP ####[facility] Susubmczdi[address] [place], [place] [address]Dr. Villa Yanes Sodium [Moles/Vol] 139 mmol/L Normal 136-145 [facility] Comment on above: Performed By: #### B TIN POT OPERATOR, CMP ####[facility] Ybnfkrlmtf[address] [place], [place] [address]Dr. Villa Yanes Urea nitrogen [Mass/Vol] 28.0 mg/dL Critically high 7.0-18.0 [facility] Comment on above: Performed By: #### B TIN POT OPERATOR, CMP ####[facility] Peetdqwcai[address] [place], [place] [address]Dr. Villa Yanes Urea nitrogen/Creatinine [Mass ratio] 24.8 mg/mg Normal [facility] Comment on above: Performed By: #### B TIN POT OPERATOR, CMP ####[facility] Ubuuzepvac[address] [place], [place] [address]Dr. Brooklynkaren Joaquín BNPon 10-11-2021 Natriuretic peptide B (Bld) [Mass/Vol] 1770.0 pg/mL Normal <=1,800.0 [facility] Comment on above: Performed By: #### C MP, BNP ####[facility] Odyfawckfd954[address] [place], [place] [address]Dr. Villa Yanes CBC W MANUAL DIFFon 10-12-19 22 ATYPICAL LYMPH # Normal [facility] Comment on above: Performed By: #### C BCMAN ####[facility] Itbgovolih85[address] [place], [place] [address]Dr. Villa Yanes ATYPICAL LYMPH % Normal [facility] Comment on above: Performed By: #### C BCMAN ####[facility] Rnwgrmzxys[address] [place], [place] [address]Dr. Villa Yanes BAND # 0.3 103/ul Normal 0.0-0.3 [facility] Comment on above: Performed By: #### C BCMAN ####[facility] Bfnilhzdbr[address] [place] [address]Dr. Villa Yanes BAND % 2 % Normal 0-5 [facility] Comment on above: Performed By: #### C BCMAN ####[facility] Rbziyjnrck5225 [place] [id number]. Yikaren Yanes BASOM # 0.00 103/ul Normal 0.00-0.10 The [facility] Comment on above: Performed By: #### C BCMAN ####[facility] Vgetbciguw3965 [place] [address]Dr. Villa Yanes BASOM % 0.0 % Critically low 0.2-2.0 The [facility] Comment on above: Performed By: #### C BCMARLENA ####[facility] Nizlafearw[address] [place], [place] [address]Dr. Villa Yanes BLAST # Normal The [facility] Comment on above: Performed By: #### C BCMARLENA ####[facility] Jtnmwxigit[address] [place], [place] [address]Dr. Villa Yanes BLAST % Normal The [facility] Comment on above: Performed By: #### C BCMARLENA ####[facility] Jjwnjxtmur[address] [place], [place] [address]Dr. Villa Yanes CORRECTED WBC Normal 4.0-11.0 The [facility] Comment on above: Performed By: #### C BCMARLENA ####[facility] Tnsylrwpmt[address] [place], [place] [address]Dr. Yikaren Yanes EOS # 0.00 103/ul Normal 0.00-0.70 The [facility] Comment on above: Performed By: #### C BCMARLENA ####[facility] Klygocccmw[address] [place], [place] [address]Dr. Villa Yanes EOS% 0.0 % Critically low 0.9-7.0 The [facility] Comment on above: Performed By: #### C BCMAN ####[facility] Ipnjuoypjr[address] [place], [place] [address]Dr. Villa Yanes HCT 28.9 % Critically low 42.0-54.0 [facility] Comment on above: Performed By: #### C ESTEFANIA ####[facility] Nkcroznnbe23[address] [place] [id number]. Villa Yanes HGB 9.0 g/dl Critically low 14.0-18.0 [facility] Comment on above: Performed By: #### C ESTEFANIA ####[facility] Hbacvwowhg5938 [place] [id number]. Villa Yanes LYMPHM # 0.77 103/ul Critically low 1.20-3.80 [facility] Comment on above: Performed By: #### C ESTEFANIA ####[facility] Ztsqajpwus2183 [place] [id number]. Villa Yanes LYMPHM% 5.0 % Critically low 20.5-60.0 [facility] Comment on above: Performed By: #### C ESTEFANIA ####[facility] Ofmqxocgyx3313 [place] [id number]. Villa Yanes MCH 29.7 pg Normal 25.9-34.0 [facility] Comment on above: Performed By: #### C ESTEFANIA ####[facility] Wcmvfokrzd80[address] [place] [id number]. Villa Yanes MCHC 31.1 g/dl Normal 29.9-35.2 [facility] Comment on above: Performed By: #### C ESTEFANIA ####[facility] Zasiwovazy8676 [place] [id number]. Villa Yanes MCV 95.4 fL Critically high 80.0-94.0 The [facility] Comment on above: Performed By: #### C BCMARLENA ####[facility] Vktpldndrf1735 [place], [place] [address]Ov. Villa Yanes METAMYELOCYTE # Normal The [facility] Comment on above: Performed By: #### C BCMARLENA ####[facility] H[address]ob[address]wnvg[address] [place], [place] [address]Aq. Villa Yanes METAMYELOCYTE % Normal The [facility] Comment on above: Performed By: #### C BCMARLENA ####[facility] Rdgzlodweb1355 [place] [id number]. Villa Yanes MONOM# 0.46 103/ul Normal 0.30-0.80 The [facility] Comment on above: Performed By: #### C ESTEFANIA ####[facility] Crtwzxsvqr9752 [place] [id number]. Villa Yanes MONOM% 3.0 % Normal 1.7-12.0 The [facility] Comment on above: Performed By: #### C ESTEFANIA ####[facility] Axlcxtwezg9285 [place] [id number]. Villa Yanes MPV 10.1 fL Normal 9.5-13.5 The [facility] Comment on above: Performed By: #### Awilda MAC ####[facility] Efzayfezzx[address] [place], [place] [address]Dr. Villa Yanes MYELOCYTE # Normal The [facility] Comment on above: Performed By: #### Awilda MAC ####[facility] Zxuyrpjfce[address] [place], [place] [id number]. Villa Yanes MYELOCYTE % Normal The [facility] Comment on above: Performed By: #### Awilda MAC ####[facility] Fdjqwrtuvi[address] [place], [place] [address]Dr. Villa Yanes NRBC Normal The [facility] Comment on above: Performed By: #### Awilda MAC ####[facility] Yqrwrslxmc5380 [place] [id number]. Villa Yanes PLT 361 103/ul Normal 150-450 [facility] Comment on above: Performed By: #### C ESTEFANIA ####[facility] Uvftiyzezq0656 [place] [id number]. Villa Yanes RBC 3.03 106/ul Critically low 4.70-6.10 The [facility] Comment on above: Performed By: #### C ESTEFANIA ####[facility] Swsvexxicf8956 [place] [address]Dr. Villa Yanes RDW 12.9 % Normal 11.0-15.0 The [facility] Comment on above: Performed By: #### Awilda MAC ####[facility] Fjnekctsyc7854 [place] [address]Dr. Villa Yanes SEG # 13.86 103/ul Critically high 1.40-6.50 [facility] Comment on above: Performed By: #### C BCMAN ####[facility] Getqqtfuvw0823 [place] [address]Dr. Villa Yanes SEG % 90.0 % Critically high 43.0-75.0 [facility] Comment on above: Performed By: #### C BCMAN ####[facility] Iagywpsytt8519 [place] [id number]. Villa Yanes WBC 15.4 103/ul Critically high 4.0-11.0 [facility] Comment on above: Performed By: #### C BCMAN ####[facility] Fcuvldsdda4727 [place] [address]Dr. Villa Yanes POINT OF CARE GLUCOSEon 09-22 Glucose [Mass/Vol] 214 mg/dL Critically high 74-106 [facility] Comment on above: Performed By: #### P OCGLUC ####[facility] Mzctnoredm2182 [place] [address]Dr. Villa Joaquín Glucose [Mass/Vol] 185 mg/dL Critically high 74-106 [facility] Comment on above: Performed By: #### P OCGLUC ####[facility] Kdhfukjjor9432 [place] [address]Dr. Villa Yanes Glucose [Mass/Vol] 224 mg/dL Critically high 74-106 [facility] Comment on above: Performed By: #### P OCGLUC ####[facility] Vwtkfublbq8524 [place] [address]Dr. Villa Yanes Glucose [Mass/Vol] 273 mg/dL Critically high 74-106 [facility] Comment on above: Performed By: #### P OCGLUC ####[facility] Gsvfvljkik[address] [place], [place] [address]Dr. Villa Yanes PROF 14(COMP METB)on 022 Albumin [Mass/Vol] 1.9 g/dL Critically low 3.4-5.0 [facility] Comment on above: Performed By: #### C MP, BNP ####[facility] Lhgdetvnib9278 [place] [id number]. Villa Yanes Albumin/Globulin [Mass ratio] 0.5 {ratio} Normal [facility] Comment on above: Performed By: #### C MP, BNP ####[facility] Lipnmqgwlw6167 [place] [address]Dr. Villa Yanes ALP [Catalytic activity/Vol] 153 U/L Critically high 46-116 [facility] Comment on above: Performed By: #### C MP, BNP ####[facility] Bysiiuxqyy7893 [place] [address]Dr. Villa Yanes ALT [Catalytic activity/Vol] 9 U/L Critically low 16-63 [facility] Comment on above: Performed By: #### C MP, BNP ####[facility] Rxquezahqo9285 [place] [address]Dr. Villa Yanes Anion gap [Moles/Vol] 12.0 mmol/L Normal [facility] Comment on above: Performed By: #### C MP, BNP ####[facility] Xxhmdnyuio3127 [place] [address]Dr. Villa Yanes AST [Catalytic activity/Vol] 10 U/L Critically low 15-37 [facility] Comment on above: Performed By: #### C MP, BNP ####[facility] Yuwxdntuvg8221 [place] [address]Dr. Villa Yanes Bilirubin [Mass/Vol] 0.1 mg/dL Critically low 0.2-1.0 [facility] Comment on above: Performed By: #### C MP, BNP ####[facility] Lfxcbhdzpm7226 [place] [id number]. Villa Yanes Calcium [Mass/Vol] 8.4 mg/dL Critically low 8.5-10.1 [facility] Comment on above: Performed By: #### C MP, BNP ####[facility] Izlkcxfnka9331 [place] [address]Dr. Villa Yanes Chloride [Moles/Vol] 100 mmol/L Normal 98-107 [facility] Comment on above: Performed By: #### C MP, BNP ####[facility] Wtztqihmyo1438 [place] [address]Dr. Villa Joaquín CO2 [Moles/Vol] 27.3 mmol/L Normal 21.0-32.0 [facility] Comment on above: Performed By: #### C MP, BNP ####[facility] Hpaakhlfyr[address] [place] [address]Dr. Villa Yanes Creatinine [Mass/Vol] 1.40 mg/dL Critically high 0.70-1.30 [facility] Comment on above: Performed By: #### C MP, BNP ####[facility] Yrtkloloty[address] [place], [place] [address]Dr. Villa Yanes EGFR-AF MACEDONIAN 59 mL/min/1.73m2 Critically low >=60 [facility] Comment on above: Performed By: #### C MP, BNP ####[facility] Tzctxipspq50[address] [place], [place] [address]Dr. Villa Yanes EGFR-NON AF MACEDONIAN 49 mL/min/1.73m2 Critically low >=60 The [facility] Comment on above: Performed By: #### C MP, BNP ####[facility] Xxxycgoxeh[address] [place], [place] [address]Dr. Villa Yanes Globulin (S) [Mass/Vol] 4.0 g/dL Normal [facility] Comment on above: Performed By: #### C MP, BNP ####[facility] Tmwkxkoxsx[address] [place], [place] [address]Dr. Villa Yanes Glucose [Mass/Vol] 353 mg/dL Critically high 74-106 T [facility] Comment on above: Performed By: #### C MP, BNP ####[facility] Knretrpahp09[address] [place], [place] [address]Dr. Villa Yanes Potassium [Moles/Vol] 4.3 mmol/L Normal 3.5-5.1 [facility] Comment on above: Performed By: #### C MP, BNP ####[facility] Bplwqzndim12[address] [place], [place] [address]Dr. Villa Yanes Protein [Mass/Vol] 5.9 g/dL Critically low 6.4-8.[address] [facility] Comment on above: Performed By: #### C MP, BNP ####[facility] Hfqfypdvbt[address] [place], [place] [address]Dr. Villa Yanes Sodium [Moles/Vol] 135 mmol/L Critically low 136-[address] [facility] Comment on above: Performed By: #### C MP, BNP ####[facility] Volncjwthb[address] [place], [place] [address]Dr. Villa Yanes Urea nitrogen [Mass/Vol] 39.0 mg/dL Critically high 7.0-18.0 [facility] Comment on above: Performed By: #### C MP, BNP ####[facility] Qzvrtgazsa[address] [place], [place] [address]Dr. Villa Yanes Urea nitrogen/Creatinine [Mass ratio] 27.9 mg/mg Normal [facility] Comment on above: Performed By: #### C MP, BNP ####[facility] Weuatejoja[address] [place], [place] [address]Dr. Villa Yanes XR CHEST 2 Von 10-11-2021 XR CHEST 2 V Normal [facility] AMMONIAon 10-10-2021 Ammonia (P) [Moles/Vol] 20 umol/L Normal 11-32 [facility] Comment on above: Performed By: #### A MM ####[facility] Sfrjyfymse[address] [place], [place] [address]Dr. Villa Yanes BNPon 10-10-2021 Natriuretic peptide B (Bld) [Mass/Vol] 1137.0 pg/mL Normal <=1,800.0 The [facility] Comment on above: Performed By: #### C MADM, BNP ####[facility] Vgfkbavdvm[address] [place], [place] [address]Dr. Brooklynkaren Joaquín Natriuretic peptide B (Bld) [Mass/Vol] 1263.0 pg/mL Normal <=1,800.0 The [facility] Comment on above: Performed By: #### C MP, BNP ####[facility] Kyfmqujcjs73[address] [place], [place] [address]Dr. Villa Yanes CARDIAC ANAMARIA ADMITon 022 CK [Catalytic activity/Vol] 13 U/L Critically low 39-308 The [facility] Comment on above: Performed By: #### C MADM, BNP ####[facility] Alxsyrsxhx38[address] [place] [address]Dr. Villa Yanes CK.MB [Mass/Vol] ng/mL Normal <=3.60 [facility] Comment on above: Performed By: #### C MADM, BNP ####[facility] Knxhnrssfc5010 [place] [address]Dr. Villa Yanes HSTROP 9.1 pg/mL Normal 4.0-76.1 The [facility] Comment on above: Result Comment: CUT- OFF POINTS HAVE BEEN ESTABLISHED BASED ON THE FOURTH UNIVERSAL DEFINITIONS OF MYOCARDIALINFARCTION. THE UPPER REFERENCE LIMIT (URL) OF TROPONIN, DEFINED THE 99TH PERCENTILE OFcTnI DISTRIBUTION IN A REFERENCE POPULATION, HAS BEEN CONFIRMED THE DECISION THRESHOLDFOR CT DIAGNOSIS. Performed By: #### C MADM, BNP ####[facility] Fnowxardrl5579 [place] [address]Dr. Villa Joaquín JULIA 52 ng/mL Normal 16-96 The [facility] Comment on above: Performed By: #### C MADM, BNP ####[facility] Kasowrdujy36[address] [place] [address]Dr. Villa Joaquín CBC AUTO DIFFon 10-10-2021 BASO # 0.1 103/ul Normal 0.0-0.1 The [facility] Comment on above: Performed By: #### C BC ####[facility] Qmtlzbvkuj5102 [place] [address]Dr. Villa Joaquín Basophils/100 WBC (Bld) 0.3 % Normal 0.2-2.0 The [facility] Comment on above: Performed By: #### C BC ####[facility] Rtqheomhif4016 [place] [address]Dr. Villa Yanes EO # 0.2 103/ul Normal 0.0-0.7 The [facility] Comment on above: Performed By: #### C BC ####[facility] Llgjssjrqw4869 [place] [address]Dr. Villa Yanes Eosinophils/100 WBC (Bld) 1.1 % Normal 0.9-7.0 The [facility] Comment on above: Performed By: #### C BC ####[facility] Vfbteuszez[address] [place], [place] [address]Dr. Villa Yanes Erythrocyte distribution width (RBC) [Ratio] 13.2 % Normal 11.0-15.0 The [facility] Comment on above: Performed By: #### C BC ####[facility] Fugzeorojl[address] [place], [place] [address]Dr. Villa Yanes Hematocrit (Bld) [Volume fraction] 29.2 % Critically low 42.0-54.0 The [facility] Comment on above: Performed By: #### C BC ####[facility] Czwbevpdsg[address] [place], [place] [address]Dr. Villa Yanes Hemoglobin (Bld) [Mass/Vol] 9.3 g/dL Critically low 14.0-18.0 [facility] Comment on above: Performed By: #### C BC ####[facility] Azqpuurqix[address] [place], [place] [address]Dr. Villa Yanes IG # 0.11 10e3/ul Critically high 0.00-0.03 The [facility] Comment on above: Performed By: #### C BC ####[facility] Uyebtkblbw[address] [place], [place] [address]Dr. Villa Yanes IG % 0.7 % Critically high 0.0-0.5 The [facility] Comment on above: Performed By: #### C BC ####[facility] Qovchjbfxj694[address] [place], [place] [address]Dr. Villa Yanes LYMPH # 1.0 103/ul Critically low 1.2-3.8 The [facility] Comment on above: Performed By: #### C BC ####[facility] Xpflspyyws[address] [place], [place] [address]Dr. Villa Yanes Lymphocytes/100 WBC (Bld) 6.4 % Critically low 20.5-60.0 The [facility] Comment on above: Performed By: #### C BC ####[facility] Lmbkiarubh2560 [place] [id number]. Villa Yanes MANUAL DIFF REQ NO Normal The [facility] Comment on above: Performed By: #### C BC ####[facility] Kxmnbtitna6156 [place] [id number]. Villa Yanes MCH (RBC) [Entitic mass] 30.2 pg Normal 25.9-34.0 The [facility] Comment on above: Performed By: #### C BC ####[facility] Zuuegjktvw6358 [place] [address]Dr. Villa Yanes MCHC (RBC) [Mass/Vol] 31.8 g/dL Normal 29.9-35.2 The [facility] Comment on above: Performed By: #### C BC ####[facility] Afzkizrvvj1269 [place] [address]Dr. Villa Yanes MCV (RBC) [Entitic vol] 94.8 fL Critically high 80.0-94.0 [facility] Comment on above: Performed By: #### C BC ####[facility] U[address]bcxu[address] [place], [place] [address]Dr. Villa Joaquín MONO # 0.9 103/ul Critically high 0.3-0.8 The [facility] Comment on above: Performed By: #### C BC ####[facility] Lpcaoturje97[address] [place], [place] [address]Dr. Brooklynkaren Yanes Monocytes/100 WBC (Bld) 5.4 % Normal 1.7-12.0 The [facility] Comment on above: Performed By: #### C BC ####[facility] Ncgjauyfyq5669 [place] [address]Dr. Villa Yanes NEUT # 13.7 103/ul Critically high 1.4-6.5 The [facility] Comment on above: Performed By: #### C BC ####[facility] Mjpfoemgyi[address] [place], [place] [address]Dr. Brooklynkaren Yanes Neutrophils/100 WBC (Bld) 86.1 % Critically high 43.0-75.0 The [facility] Comment on above: Performed By: #### C BC ####[facility] Tdolzhyutm5319 [place] [id number]. Villa Yanes Platelet mean volume (Bld) [Entitic vol] 10.5 fL Normal 9.5-13.5 [facility] Comment on above: Performed By: #### C BC ####[facility] Uaqbztbzbk7427 [place] [address]Dr. Villa Yanes PLT 293 103/ul Normal 150-450 The [facility] Comment on above: Performed By: #### C BC ####[facility] Zjztqmsjdw7691 [place] [address]Dr. Villa Yanes RBC 3.08 106/ul Critically low 4.70-6.10 [facility] Comment on above: Performed By: #### C BC ####[facility] Sthbqstjwh9995 [place] [address]Dr. Villa Yanes WBC 15.9 103/ul Critically high 4.0-11.0 [facility] Comment on above: Performed By: #### C BC ####[facility] Ovgssumghv7842 [place] [address]Dr. Villa Yanes CULTURE URINEon 10-10-2021 CULTURE URINE Culture Observations : No growth Normal [facility] Comment on above: Performed By: #### U RCX ####[facility] Ckzhcegtyo2379 [place] [id number]. Villa Yanes POINT OF CARE GLUCOSEon 09-22 Glucose [Mass/Vol] 214 mg/dL Critically high 74-106 [facility] Comment on above: Performed By: #### P OCGLUC ####[facility] Ysakevftfl66[address] [place] [address]Dr. Villa Yanes Glucose [Mass/Vol] 309 mg/dL Critically high 74-106 [facility] Comment on above: Performed By: #### P OCGLUC ####[facility] Qilmeptiqy0070 [place] [address]Dr. Villa Yanes Glucose [Mass/Vol] 196 mg/dL Critically high 74-106 [facility] Comment on above: Performed By: #### P OCGLUC ####[facility] Xionwkyifl3329 [place] [address]Dr. Villa Yanes Glucose [Mass/Vol] 185 mg/dL Critically high 74-106 [facility] Comment on above: Performed By: #### P OCGLUC ####[facility] Wtnsdkdxhm8819 [place] [address]Dr. Villa Yanes PROF 14(COMP METB)on 022 Albumin [Mass/Vol] 1.7 g/dL Critically low 3.4-5.0 [facility] Comment on above: Performed By: #### C MP, BNP ####[facility] Gmjhucddff0879 [place] [address]Dr. Villa Yanes Albumin/Globulin [Mass ratio] 0.4 {ratio} Normal [facility] Comment on above: Performed By: #### C MP, BNP ####[facility] Fkuiwfpjma3530 [place] [address]Dr. Villa Yanes ALP [Catalytic activity/Vol] 127 U/L Critically high 46-116 [facility] Comment on above: Performed By: #### C MP, BNP ####[facility] Ashqsvwvod2001 [place] [address]Dr. Villa Yanes ALT [Catalytic activity/Vol] 6 U/L Critically low 16-63 [facility] Comment on above: Performed By: #### C MP, BNP ####[facility] Idadkmthjc9662 [place] [address]Dr. Villa Yanes Anion gap [Moles/Vol] 11.6 mmol/L Normal [facility] Comment on above: Performed By: #### C MP, BNP ####[facility] Tmjhlhthkw1407 [place] [address]Dr. Villa Yanes AST [Catalytic activity/Vol] 15 U/L Normal 15-37 [facility] Comment on above: Performed By: #### C MP, BNP ####[facility] Tdercrextd5023 [place] [address]Dr. Villa Yanes Bilirubin [Mass/Vol] 0.2 mg/dL Normal 0.2-1.0 [facility] Comment on above: Performed By: #### C MP, BNP ####[facility] Qsdkcmkhgl9696 [place] [address]Dr. Villa Yanes Calcium [Mass/Vol] 8.4 mg/dL Critically low 8.5-10.1 Th e [facility] Comment on above: Performed By: #### C MP, BNP ####[facility] Jxmcyboaha[address] [place], [place] [address]Dr. Villa Yanes Chloride [Moles/Vol] 101 mmol/L Normal 98-107 [facility] Comment on above: Performed By: #### C MP, BNP ####[facility] [facility] Eztzzrpbxo[address] [place], [place] [address]Dr. Villa Yanes CO2 [Moles/Vol] 26.3 mmol/L Normal 21.0-32.0 [facility] Comment on above: Performed By: #### C MP, BNP ####[facility] Qzyiadeoas[address] [place], [place] [address]Dr. Villa Yanes Creatinine [Mass/Vol] 1.57 mg/dL Critically high 0.70-1.30 [facility] Comment on above: Performed By: #### C MP, BNP ####[facility] Qrvygighir8[address] [place], [place] [address]Dr. Villa Yanes EGFR-AF MACEDONIAN 52 mL/min/1.73m2 Critically low >=60 [facility] Comment on above: Performed By: #### C MP, BNP ####[facility] Balljdqtyy639[address] [place], [place] [address]Dr. Villa Yanes EGFR-NON AF MACEDONIAN 43 mL/min/1.73m2 Critically low >=60 [facility] Comment on above: Performed By: #### C MP, BNP ####[facility] Wrjepnrlrn04[address] [place], [place] [address]Dr. Villa Yanes Globulin (S) [Mass/Vol] 4.1 g/dL Normal [facility] Comment on above: Performed By: #### C MP, BNP ####[facility] Qvwicqbpea[address] [place], [place] [address]Dr. Villa Joaquín Glucose [Mass/Vol] 243 mg/dL Critically high 74-106 T [facility] Comment on above: Performed By: #### C MP, BNP ####[facility] Wiwkfvxhpt969[address] [place], [place] [address]Dr. Villa Yanes Potassium [Moles/Vol] 3.9 mmol/L Normal 3.5-5.1 [facility] Comment on above: Performed By: #### C MP, BNP ####[facility] Lltcwtxjjf[address] [place], [place] [address]Dr. Villa Yanes Protein [Mass/Vol] 5.8 g/dL Critically low 6.4-8.[address] [facility] Comment on above: Performed By: #### C MP, BNP ####[facility] Elscbfyxyl[address] [place], [place] [address]Dr. Villa Yanes Sodium [Moles/Vol] 135 mmol/L Critically low 136-[address] [facility] Comment on above: Performed By: #### C MP, BNP ####[facility] Czxnfsaxff365[address] [place], [place] [address]Dr. Villa Yanes Urea nitrogen [Mass/Vol] 35.0 mg/dL Critically high 7.0-18.0 [facility] Comment on above: Performed By: #### C MP, BNP ####[facility] Lgboinufkz9[address] [place], [place] [address]Dr. Villa Yanes Urea nitrogen/Creatinine [Mass ratio] 22.3 mg/mg Normal [facility] Comment on above: Performed By: #### C MP, BNP ####[facility] Qtrjprmbvy[address] [place], [place] [address]Dr. Villa Yanes UA RANDOM W/MICROSCOPICon BACTERIA NONE SEEN Normal NONE SEEN The [facility] Comment on above: Performed By: #### U AMIC ####[facility] Lqiyrllyjd649[address] [place], [place] [address]Dr. Villa Yanes Bilirubin Ql (U) Negative Normal NEGATIVE The [facility] Comment on above: Performed By: #### U AMIC ####[facility] Fuxlmkoqai110[address] [place], [place] [address]Dr. Villa Yanes CAST NONE SEEN Normal NONE SEEN The [facility] Comment on above: Performed By: #### U AMIC ####[facility] Ejkpsulvtq247[address] [place], [place] [address]Dr. Villa Yanes Clarity (U) CLEAR Normal CLEAR The [facility] Comment on above: Performed By: #### U AMIC ####[facility] Gbcuxniuhb201[address] [place], [place] [address]Dr. Villa Yanes Color (U) YELLOW Normal YELLOW The [facility] Comment on above: Performed By: #### U AMIC ####[facility] Clkebapzgo028[address] [place], [place] [address]Dr. Villa Yanes Crystals LM Nom (Urine sed) NONE SEEN Normal NONE SEEN The [facility] Comment on above: Performed By: #### U AMIC ####[facility] Gwfiafvbyz4612[address] [place], [place] [address]Dr. Villa Yanes Epithelial cells LM Ql (Urine sed) RARE Normal NONE SEEN /RARE The [facility] Comment on above: Performed By: #### U AMIC ####[facility] Ekhkatakns76[address] [place], [place] [address]Dr. Villa Yanes Glucose Ql (U) Negative Normal NEGATIVE The [facility] Comment on above: Performed By: #### U AMIC ####[facility] Ofeohhaixg755[address] [place], [place] [address]Dr. Villa Yanes Hemoglobin Ql (U) Negative Normal NEGATIVE The [facility] Comment on above: Performed By: #### U AMIC ####[facility] Gcfewmrurm5728[address] [place], [place] [address]Dr. Villa Yanes Ketones Ql (U) Negative Normal NEGATIVE The [facility] Comment on above: Performed By: #### U AMIC ####[facility] Dneaqvvtpf1217[address] [place], [place] [address]Dr. Brooklynlan Yanes LEUKOCYTES Negative Normal NEGATIVE The [facility] Comment on above: Performed By: #### U AMIC ####[facility] Ozefeyqcrp[address] [place], [place] [address]Dr. Yilan Yanes MUCOUS NONE SEEN Normal NONE SEEN The [facility] Comment on above: Performed By: #### U AMIC ####[facility] Mlvteqpkxt[address] [place] [address]Dr. Villa Yanes Nitrite Ql (U) Negative Normal NEGATIVE The [facility] Comment on above: Performed By: #### U AMIC ####[facility] Fywfhkbwqe7824 [place] [address]Dr. Villa Yanes pH (U) 5.5 [pH] Normal 5-9 The [facility] Comment on above: Performed By: #### U AMIC ####[facility] Wjmqmwazef8935[address] [place], [place] [address]Dr. Villa Yanes RBC 2-5 Abnormal 0-2 [facility] Comment on above: Performed By: #### U AMIC ####[facility] Batskwsegi836[address] [place], [place] [address]Dr. Villa Yanes SPEC GRAVITY 1.025 Normal 1.005-<=1.0 25 [facility] Comment on above: Performed By: #### U AMIC ####[facility] Sozdqekakd4585[address] [place], [place] [address]Dr. Villa Yanes UA PROTEIN 100 mg/dl Abnormal NEGATIVE/ TRACE The [facility] Comment on above: Performed By: #### U AMIC ####[facility] Lhhjqznumd8712[address] [place], [place] [address]Dr. Villa Joaquín Urobilinogen Qn (U) 0.2 {Mackenzie'U}/dL Normal 0.2 - 1. 0 The [facility] Comment on above: Performed By: #### U AMIC ####[facility] Noqwthlixr4935[address] [place], [place] [address]Dr. Villa Yanes WBC NONE SEEN Normal NONE SEEN The [facility] Comment on above: Performed By: #### U AMIC ####[facility] Muulsvmmvq342[address] [place], [place] [address]Dr. Brooklynkaren Yanes BNPon 10-09-2021 Natriuretic peptide B (Bld) [Mass/Vol] 1670.0 pg/mL Normal <=1,800.0 The [facility] Comment on above: Performed By: #### B TIN POT OPERATOR, CMP ####[facility] Uzztawibni[address] [place] [address]Dr. Villa Yanes CBC AUTO DIFFon 10-09-2021 BASO # 0.1 103/ul Normal 0.0-0.1 The [facility] Comment on above: Performed By: #### C BC ####[facility] Lndgjstdsq054[address] [place], [place] [address]Dr. Villa Yanes Basophils/100 WBC (Bld) 0.3 % Normal 0.2-2.0 The [facility] Comment on above: Performed By: #### C BC ####[facility] Iyexuueupy924[address] [place], [place] [address]Dr. Villa Yanes EO # 0.2 103/ul Normal 0.0-0.7 The [facility] Comment on above: Performed By: #### C BC ####[facility] Gouvbiyhhd1035[address] [place], [place] [address]Dr. Brooklynkaren Yanes Eosinophils/100 WBC (Bld) 1.1 % Normal 0.9-7.0 The [facility] Comment on above: Performed By: #### C BC ####[facility] Xecotwtbzo[address] [place], [place] [address]Dr. Villa Yanes Erythrocyte distribution width (RBC) [Ratio] 12.9 % Normal 11.0-15.0 [facility] Comment on above: Performed By: #### C BC ####[facility] Vwnsuszjob[address] [place], [place] [address]Dr. Villa Yanes Hematocrit (Bld) [Volume fraction] 32.6 % Critically low 42.0-54.0 The [facility] Comment on above: Performed By: #### C BC ####[facility] Juwaxqdaic234[address] [place], [place] [address]Dr. Villa Yanes Hemoglobin (Bld) [Mass/Vol] 10.4 g/dL Critically low 14.0-18.0 The [facility] Comment on above: Performed By: #### C BC ####[facility] Wkutyribmf057[address] [place], [place] [address]Dr. Brooklynkaren Yanes IG # 0.13 10e3/ul Critically high 0.00-0.03 [facility] Comment on above: Performed By: #### C BC ####[facility] Xclpsatzsy[address] [place] [id number]. Villa Yanes IG % 0.9 % Critically high 0.0-0.5 [facility] Comment on above: Performed By: #### C BC ####[facility] Nsxlgtavqb4399 [place] [address]Dr. Villa Yanes LYMPH # 1.0 103/ul Critically low 1.2-3.8 The [facility] Comment on above: Performed By: #### C BC ####[facility] Wjfpjatrxl7079 [place] [address]Dr. Villa Yanes Lymphocytes/100 WBC (Bld) 6.7 % Critically low 20.5-60.0 [facility] Comment on above: Performed By: #### C BC ####[facility] Wsetugrowv4334 [place] [address]Dr. Brooklynkaren Yanes MANUAL DIFF REQ NO Normal [facility] Comment on above: Performed By: #### C BC ####[facility] Ogmw[address] [place], [place] [address]Dr. Villa Yanes MCH (RBC) [Entitic mass] 30.5 pg Normal 25.9-34.0 [facility] Comment on above: Performed By: #### C BC ####[facility] Hyqvnmupbc67[address] [place] [id number]. Villa Yanes MCHC (RBC) [Mass/Vol] 31.9 g/dL Normal 29.9-35.2 The [facility] Comment on above: Performed By: #### C BC ####[facility] Alkl[address]bvu[address] [place], [place] [address]Dr. Villa Yanes MCV (RBC) [Entitic vol] 95.6 fL Critically high 80.0-94.0 The [facility] Comment on above: Performed By: #### C BC ####[facility] Hwjtibcxce[address] [place], [place] [address]Dr. Villa Yanes MONO # 0.8 103/ul Normal 0.3-0.8 The [facility] Comment on above: Performed By: #### C BC ####[facility] Zxqwnydpkv7951 [place] [address]Dr. Villa Yanes Monocytes/100 WBC (Bld) 5.4 % Normal 1.7-12.0 The [facility] Comment on above: Performed By: #### C BC ####[facility] Qfolemtgul3587 [place] [address]Dr. Villa Yanes NEUT # 13.0 103/ul Critically high 1.4-6.5 The [facility] Comment on above: Performed By: #### C BC ####[facility] Wrppuoivzu1440 [place] [address]Dr. Villa Yanes Neutrophils/100 WBC (Bld) 85.6 % Critically high 43.0-75.0 The [facility] Comment on above: Performed By: #### C BC ####[facility] Trwlsaoikt2244 [place] [address]Dr. Villa Yanes Platelet mean volume (Bld) [Entitic vol] 9.8 fL Normal 9.5-13.5 The [facility] Comment on above: Performed By: #### C BC ####[facility] Opfjpacyxl3413 [place] [address]Dr. Villa Yanes PLT 299 103/ul Normal 150-450 The [facility] Comment on above: Performed By: #### C BC ####[facility] Nqboxrdmfh5998 [place] [address]Dr. Villa Yanes RBC 3.41 106/ul Critically low 4.70-6.10 The [facility] Comment on above: Performed By: #### C BC ####[facility] Glsyofgqfz4202 [place] [address]Dr. Villa Yanes WBC 15.1 103/ul Critically high 4.0-11.0 The [facility] Comment on above: Performed By: #### C BC ####[facility] Raaprozxhx1643 [place] [address]Dr. [place] [address] CT ABD/PELV W CONon 10-10-19 CT ABD/PELV W CON Normal The [facility] MAGNESIUMon 10-09-2021 Magnesium [Mass/Vol] 2.5 mg/dL Critically high 1.8-2.4 [facility] Comment on above: Performed By: #### PETER Hart ####[facility] Zhlhnksjlm[address] [place], [place] [address]Dr. Villa Yanes PHOSPHORUSon 10-09-2021 Phosphate [Mass/Vol] 3.8 mg/dL Normal 2.6-4.7 [facility] Comment on above: Performed By: #### PETER Hart ####[facility] Gduetqmcsm[address] [place], [place] [address]Dr. Villa Yanes POINT OF CARE GLUCOSEon 09-21 Glucose [Mass/Vol] 244 mg/dL Critically high 74-106 [facility] Comment on above: Performed By: #### P OCGLUC ####[facility] Weksgzecbx173[address] [place], [place] [address]Dr. Villa Yanes Glucose [Mass/Vol] 171 mg/dL Critically high 74-106 [facility] Comment on above: Performed By: #### P OCGLUC ####[facility] Xojtsromjj2664[address] [place], [place] [address]Dr. Villa Yanes Glucose [Mass/Vol] 203 mg/dL Critically high -106 [facility] Comment on above: Performed By: #### P OCGLUC ####[facility] Dootwhjsxv884[address] [place], [place] [address]Dr. Villa Yanes Glucose [Mass/Vol] 171 mg/dL Critically high 74-106 [facility] Comment on above: Performed By: #### P OCGLUC ####[facility] Qpvjsnbqwt8816[address] [place], [place] [address]Dr. Villa Yanes PROF 14(COMP METB)on 022 Albumin [Mass/Vol] 2.0 g/dL Critically low 3.4-5.0 [facility] Comment on above: Performed By: #### B TIN POT OPERATOR, CMP ####[facility] Tpeiugacyv512[address] [place], [place] [address]Dr. Villa Yanes Albumin/Globulin [Mass ratio] 0.5 {ratio} Normal [facility] Comment on above: Performed By: #### B TIN POT OPERATOR, CMP ####[facility] Idfiafhaps6812 [place] [id number]. Villa Yanes ALP [Catalytic activity/Vol] 113 U/L Normal 46-116 [facility] Comment on above: Performed By: #### B TIN POT OPERATOR, CMP ####[facility] Kownoaqiuy8352 [place] [id number]. Villa Joaquín ALT [Catalytic activity/Vol] 10 U/L Critically low 16-63 [facility] Comment on above: Performed By: #### B TIN POT OPERATOR, CMP ####[facility] Evnguflorm5720 [place] [id number]. Villa Yanes Anion gap [Moles/Vol] 11.0 mmol/L Normal Th e [facility] Comment on above: Performed By: #### B TIN POT OPERATOR, CMP ####[facility] Ddpjwydctm69[address] [place], [place] [address]Dr. Villa Yanes AST [Catalytic activity/Vol] 28 U/L Normal 15-37 [facility] Comment on above: Performed By: #### B TIN POT OPERATOR, CMP ####[facility] Sceqrbviok9[address] [place], [place] [address]Dr. Brooklynkaren Joaquín Bilirubin [Mass/Vol] 0.3 mg/dL Normal 0.2-1.0 [facility] Comment on above: Performed By: #### B TIN POT OPERATOR, CMP ####[facility] Sgzantlpmk6873 [place] [id number]. Villa Yanes Calcium [Mass/Vol] 8.7 mg/dL Normal 8.5-10.1 [facility] Comment on above: Performed By: #### B TIN POT OPERATOR, CMP ####[facility] Wxypsvkoys4443 [place] [id number]. Villa Yanes Chloride [Moles/Vol] 100 mmol/L Normal 98-107 The [facility] Comment on above: Performed By: #### B TIN POT OPERATOR, CMP ####[facility] Dzyufvknbu4646 [place] [address]Dr. Villa Yanes CO2 [Moles/Vol] 28.1 mmol/L Normal 21.0-32.0 The [facility] Comment on above: Performed By: #### B TIN POT OPERATOR, CMP ####[facility] Pzgozzriye2041 [place] [address]Dr. Villa Joaquín Creatinine [Mass/Vol] 1.61 mg/dL Critically high 0.70-1.30 [facility] Comment on above: Performed By: #### B TIN POT OPERATOR, CMP ####[facility] Mtwqpikoqa560[address] [place], [place] [address]Dr. Villa Joaquín EGFR-AF MACEDONIAN 50 mL/min/1.73m2 Critically low >=60 [facility] Comment on above: Performed By: #### B TIN POT OPERATOR, CMP ####[facility] Dpxmnbcnxl032[address] [place], [place] [address]Dr. Villa Yanes EGFR-NON AF MACEDONIAN 42 mL/min/1.73m2 Critically low >=60 [facility] Comment on above: Performed By: #### B TIN POT OPERATOR, CMP ####[facility] Ceyikkfxmz787[address] [place], [place] [address]Dr. Villa Yanes Globulin (S) [Mass/Vol] 4.1 g/dL Normal [facility] Comment on above: Performed By: #### B TIN POT OPERATOR, CMP ####[facility] Esuslvlpds659[address] [place], [place] [address]Dr. Villa Yanes Glucose [Mass/Vol] 154 mg/dL Critically high 74-106 T [facility] Comment on above: Performed By: #### B TIN POT OPERATOR, CMP ####[facility] Opkjicfvwo9439[address] [place], [place] [address]Dr. Villa Yanes Potassium [Moles/Vol] 4.1 mmol/L Normal 3.5-5.1 [facility] Comment on above: Performed By: #### B TIN POT OPERATOR, CMP ####[facility] Igoocalqgf777[address] [place], [place] [address]Dr. Villa Yanes Protein [Mass/Vol] 6.1 g/dL Critically low 6.4-8.[address] [facility] Comment on above: Performed By: #### B TIN POT OPERATOR, CMP ####[facility] Feppqdtmtp205[address] [place], [place] [address]Dr. Villa Yanes Sodium [Moles/Vol] 135 mmol/L Critically low 136-[address] [facility] Comment on above: Performed By: #### B TIN POT OPERATOR, CMP ####[facility] Gwdlielqff043[address] [place], [place] [address]Dr. Villa Yanes Urea nitrogen [Mass/Vol] 29.0 mg/dL Critically high 7.0-18.0 [facility] Comment on above: Performed By: #### B TIN POT OPERATOR, CMP ####[facility] Fbcqwmaaty[address] [place], [place] [address]Dr. Villa Yanes Urea nitrogen/Creatinine [Mass ratio] 18.0 mg/mg Normal The [facility] Comment on above: Performed By: #### B TIN POT OPERATOR, CMP ####[facility] Vnuarbawqx814[address] [place], [place] [address]Dr. Villa Yanes XR ABD FLAT UP_PA Temo 10-09 XR ABD FLAT UP_PA CH Normal The [facility] BNPon 10-08-2021 Natriuretic peptide B (Bld) [Mass/Vol] 1299.0 pg/mL Normal <=1,800.0 The [facility] Comment on above: Performed By: #### B TIN POT OPERATOR, CMP ####[facility] Bodevgmkuq675[address] [place], [place] [address]Dr. Villa Yanes CBC AUTO DIFFon 10-08-2021 BASO # 0.1 103/ul Normal 0.0-0.1 [facility] Comment on above: Performed By: #### C BC ####[facility] Ubjujvrvvo97[address] [place], [place] [address]Dr. Villa Yanes Basophils/100 WBC (Bld) 0.7 % Normal 0.2-2.0 The [facility] Comment on above: Performed By: #### C BC ####[facility] Kktaprdjci150[address] [place], [place] [address]Dr. Villa Yanes EO # 0.4 103/ul Normal 0.0-0.7 The [facility] Comment on above: Performed By: #### C BC ####[facility] Tmyikytugx287[address] [place], [place] [address]Dr. Villa Yanes Eosinophils/100 WBC (Bld) 4.5 % Normal 0.9-7.0 The [facility] Comment on above: Performed By: #### C BC ####[facility] Jjcfepvpoq155[address] [place], [place] [address]Dr. Villa Yanes Erythrocyte distribution width (RBC) [Ratio] 13.1 % Normal 11.0-15.0 The [facility] Comment on above: Performed By: #### C BC ####[facility] Bqoqdvasti[address] [place], [place] [address]DrBrenden Yanes Hematocrit (Bld) [Volume fraction] 32.8 % Critically low 42.0-54.0 The [facility] Comment on above: Performed By: #### C BC ####[facility] Yladntveek[address] [place], [place] [address]DrBrenden Yanes Hemoglobin (Bld) [Mass/Vol] 10.3 g/dL Critically low 14.0-18.0 [facility] Comment on above: Performed By: #### C BC ####[facility] Zphhjsshbp8[address] [place], [place] [address]Dr. Villa Yanes IG # 0.13 10e3/ul Critically high 0.00-0.03 [facility] Comment on above: Performed By: #### C BC ####[facility] Ryduhdbkdz[address] [place], [place] [address]Dr. Villa Yanes IG % 1.4 % Critically high 0.0-0.5 [facility] Comment on above: Performed By: #### C BC ####[facility] Hcmskdytva[address] [place], [place] [address]DrBrenden Yanes LYMPH # 1.2 103/ul Normal 1.2-3.8 The [facility] Comment on above: Performed By: #### C BC ####[facility] Heyisshubi37[address] [place], [place] [address]DrBrenden Yanes Lymphocytes/100 WBC (Bld) 13.0 % Critically low 20.5-60.0 The [facility] Comment on above: Performed By: #### C BC ####[facility] Sloquvvswa[address] [place], [place] [address]DrBrenden Yanes MANUAL DIFF REQ NO Normal The [facility] Comment on above: Performed By: #### C BC ####[facility] Qflsadqdte1048 [place] [address]DrBrenden Yanes MCH (RBC) [Entitic mass] 30.2 pg Normal 25.9-34.0 [facility] Comment on above: Performed By: #### C BC ####[facility] Ukyqdmrzar0986 [place] [address]DrBrenden Yanes MCHC (RBC) [Mass/Vol] 31.4 g/dL Normal 29.9-35.2 The [facility] Comment on above: Performed By: #### C BC ####[facility] Jqzhmljptz694[address] [place], [place] [address]DrBrenden Yanes MCV (RBC) [Entitic vol] 96.2 fL Critically high 80.0-94.0 [facility] Comment on above: Performed By: #### C BC ####[facility] Odekmwsbfv46[address] [place], [place] [address]DrBrenden Yanes MONO # 0.7 103/ul Normal 0.3-0.8 The [facility] Comment on above: Performed By: #### C BC ####[facility] Mcmdhohf[address] [place], [place] [address]DrBrenden Yanes Monocytes/100 WBC (Bld) 7.9 % Normal 1.7-12.0 The [facility] Comment on above: Performed By: #### C BC ####[facility] Isbwpyffgk[address] [place], [place] [address]DrBrenden Yanes NEUT # 6.8 103/ul Critically high 1.4-6.5 The [facility] Comment on above: Performed By: #### C BC ####[facility] Udzxsijavp[address] [place], [place] [address]DrBrenden Yanes Neutrophils/100 WBC (Bld) 72.5 % Normal 43.0-75.0 The [facility] Comment on above: Performed By: #### C BC ####[facility] Ntxepybkzg822[address] [place], [place] [address]DrBrenden Yanes Platelet mean volume (Bld) [Entitic vol] 9.2 fL Critically low 9.5-13.5 [facility] Comment on above: Performed By: #### C BC ####[facility] [address] [place] [id number]. Villa Yanes PLT 258 103/ul Normal 150-450 [facility] Comment on above: Performed By: #### C BC ####[facility] [address] [place] [address]Dr. Villa Yanes RBC 3.41 106/ul Critically low 4.70-6.10 [facility] Comment on above: Performed By: #### C BC ####[facility] [address]ys[address] [place] [address]Dr. Villa Yanes WBC 9.4 103/ul Normal 4.0-11.0 [facility] Comment on above: Performed By: #### C BC ####[facility] [address] [place] [address]DrBrenden Villa Yanes POINT OF CARE GLUCOSEon 09-21 Glucose [Mass/Vol] 180 mg/dL Critically high 74-106 [facility] Comment on above: Performed By: #### P OCGLUC ####[facility] [address] [place] [address]Dr. Villa Yanes Glucose [Mass/Vol] 159 mg/dL Critically high 74-106 [facility] Comment on above: Performed By: #### P OCGLUC ####[facility] A[address]wpawe[address] [place] [address]Dr. Villa Yanes Glucose [Mass/Vol] 110 mg/dL Critically high 74-106 [facility] Comment on above: Performed By: #### P OCGLUC ####[facility] [address] [place] [address]DrBrenden Villa Joaquín PROF 14(COMP METB)on 022 Albumin [Mass/Vol] 2.1 g/dL Critically low 3.4-5.[address] [facility] Comment on above: Performed By: #### B TIN POT OPERATOR, CMP ####[facility] L[address]wuxvpeg[address] [place] [id number]. Villa Yanes Albumin/Globulin [Mass ratio] 0.5 {ratio} Normal [facility] Comment on above: Performed By: #### B TIN POT OPERATOR, CMP ####[facility] [address]xxftr[address] [place] [address]Dr. Villa Yanes ALP [Catalytic activity/Vol] 92 U/L Normal 46-116 [facility] Comment on above: Performed By: #### B TIN POT OPERATOR, CMP ####[facility] [address]wntz[address] [place] [address]Dr. Villa Yanes ALT [Catalytic activity/Vol] 9 U/L Critically low 16-63 [facility] Comment on above: Performed By: #### B TIN POT OPERATOR, CMP ####[facility] [address] [place], [place] [address]Dr. Villa Yanes Anion gap [Moles/Vol] 9.6 mmol/L Normal [facility] Comment on above: Performed By: #### B TIN POT OPERATOR, CMP ####[facility] [address] [place], [place] [address]Dr. Villa Yanes AST [Catalytic activity/Vol] 13 U/L Critically low 15-37 [facility] Comment on above: Performed By: #### B TIN POT OPERATOR, CMP ####[facility] L[address] [place], [place] [address]Dr. Villa Yanes Bilirubin [Mass/Vol] 0.3 mg/dL Normal 0.2-1.0 [facility] Comment on above: Performed By: #### B TIN POT OPERATOR, CMP ####[facility] [address]jpat[address] [place] [address]Dr. Villa Yanes Calcium [Mass/Vol] 9.0 mg/dL Normal 8.5-10.1 [facility] Comment on above: Performed By: #### B TIN POT OPERATOR, CMP ####[facility] G[address] [place], [place] [address]Dr. Villa Yanes Chloride [Moles/Vol] 102 mmol/L Normal 98-107 [facility] Comment on above: Performed By: #### B TIN POT OPERATOR, CMP ####[facility] [address] [place], [place] [address]Dr. Villa Joaquín CO2 [Moles/Vol] 29.5 mmol/L Normal 21.0-32.0 [facility] Comment on above: Performed By: #### B TIN POT OPERATOR, CMP ####[facility] Um[address] [place], [place] [address]Dr. Villa Joaquín Creatinine [Mass/Vol] 1.49 mg/dL Critically high 0.70-1.30 [facility] Comment on above: Performed By: #### B TIN POT OPERATOR, CMP ####[facility] Xptsc[address]oo[address] [place], [place] [address]Dr. Villa Yanes EGFR-AF MACEDONIAN 55 mL/min/1.73m2 Critically low >=60 [facility] Comment on above: Performed By: #### B TIN POT OPERATOR, CMP ####[facility] T[address]ok[address] [place], [place] [address]Dr. Villa Yanes EGFR-NON AF MACEDONIAN 45 mL/min/1.73m2 Critically low >=60 [facility] Comment on above: Performed By: #### B TIN POT OPERATOR, CMP ####[facility] [address] [place], [place] [address]Dr. Villa Yanes Globulin (S) [Mass/Vol] 4.2 g/dL Normal [facility] Comment on above: Performed By: #### B TIN POT OPERATOR, CMP ####[facility] W[address]ex[address] [place], [place] [address]Dr. Villa Yanes Glucose [Mass/Vol] 157 mg/dL Critically high 74-106 [facility] Comment on above: Performed By: #### B TIN POT OPERATOR, CMP ####[facility] [address]pfz[address] [place], [place] [address]Dr. Villa Yanes Potassium [Moles/Vol] 4.1 mmol/L Normal 3.5-5.1 [facility] Comment on above: Performed By: #### B TIN POT OPERATOR, CMP ####[facility] [address] [place], [place] [address]Dr. Villa Yanes Protein [Mass/Vol] 6.3 g/dL Critically low 6.4-8.[address] [facility] Comment on above: Performed By: #### B TIN POT OPERATOR, CMP ####[facility] [address] [place] [address]Dr. Villa Yanes Sodium [Moles/Vol] 137 mmol/L Normal 136-145 [facility] Comment on above: Performed By: #### B TIN POT OPERATOR, CMP ####[facility] Sp[address]hzos[address] [place] [address]Dr. Villa Joaquín Urea nitrogen [Mass/Vol] 26.0 mg/dL Critically high 7.0-18.0 [facility] Comment on above: Performed By: #### B TIN POT OPERATOR, CMP ####[facility] [address] [place] [address]Dr. Brooklynkaren Joaquín Urea nitrogen/Creatinine [Mass ratio] 17.4 mg/mg Normal [facility] Comment on above: Performed By: #### B TIN POT OPERATOR, CMP ####[facility] [address] [place] [address]Dr. Villa Yanes POINT OF CARE GLUCOSEon 09-21 Glucose [Mass/Vol] 145 mg/dL Critically high 74-106 [facility] Comment on above: Performed By: #### P OCGLUC ####[facility] [address] [place] [address]Dr. Villa Yanes Glucose [Mass/Vol] 163 mg/dL Critically high 74-106 [facility] Comment on above: Performed By: #### P OCGLUC ####[facility] [address] [place] [address]Dr. Villa Yanes Glucose [Mass/Vol] 169 mg/dL Critically high 74-106 [facility] Comment on above: Performed By: #### P OCGLUC ####[facility] [address] [place], [place] [address]Dr. Villa Yanes Tobacco Screening.on 022 Adult depression screening assessment No [facility] 250 DO Work Phone: Fall risk assessment b) One or more fall s in the last year [facility] 250 DO Work Phone: Tobacco use status CPHS a) Yes [facility] 250 DO Work Phone: Tobacco Screening. Yes [facility] marika 250 DO Work Phone: Vital Signs Date Time Vital Sign Value Performing Clinician Facility 02-04-2023 11:57-0400 Body height 180.34 cm Micheal M Hoy Work Phone: [facility] 250 DO Work Phone: 02-04-2023 11:57-0400 Body mass index (BMI) [Ratio] 19.53 kg/m2 Micheal M Hoy Work Phone: [facility] 250 DO Work Phone: 02-04-2023 11:57-0400 Body surface area Derived from formula 1.81 m2 Micheal M Hoy Work Phone: [facility] 250 DO Work Phone: 02-04-2023 11:57-0400 Body weight 63.5 kg Micheal M Hoy Work Phone: [facility] 250 DO Work Phone: 02-04-2023 11:57-0400 Diastolic blood pressure 62 mm[Hg] Micheal M Hoy Work Phone: [facility] 250 DO Work Phone: 02-04-2023 11:57-0400 Heart rate 62 /min Micheal M Hoy Work Phone: [facility] 250 DO Work Phone: 02-04-2023 11:57-0400 Systolic blood pressure 140 mm[Hg] Micheal M Hoy Work Phone: [facility] 250 DO Work Phone: 11-26-2022 00:00-0400 55 1 Micheal M Hoy Work Phone: [facility] [place] [facility] 250 DO Work Phone: Comment on above: [id number] 11-25-2022 22:09-0400 Body height 180.34 cm MD Micheal Gutiérrez Work Phone: [facility] 11-25-2022 22:09-0400 Body temperature 98.1 [degF] MD Micheal Gutiérrez Work Phone: [facility] 11-25-2022 22:09-0400 Body weight 56.9 kg MD Micheal Gutiérrez Work Phone: [facility] 11-25-2022 22:09-0400 Diastolic blood pressure 94 mm[Hg] MD Micheal Gutiérrez Work Phone: [facility] 11-25-2022 22:09-0400 Heart rate 69 /min MD Micheal Gutiérrez Work Phone: [facility] 11-25-2022 22:09-0400 Respiratory rate 18 /min MD Micheal Gutiérrez Work Phone: [facility] 11-25-2022 22:09-0400 SaO2% (BldA) [Mass fraction] 94 % MD Micheal Gutiérrez Work Phone: [facility] 11-25-2022 22:09-0400 Systolic blood pressure 177 mm[Hg] MD Micheal Gutiérrez Work Phone: [facility] 08-04-2022 11:02-0400 Body height 180.34 cm Micheal Dick Torsteny Work Phone: [facility] 250 DO Work Phone: 08-04-2022 11:02-0400 Body mass index (BMI) [Ratio] 17.71 kg/m2 Michealkiersten Sarmientoy Work Phone: [facility] 250 DO Work Phone: 08-04-2022 11:02-0400 Body surface area Derived from formula 1.74 m2 Michealkiersten Sarmientoy Work Phone: [facility] 250 DO Work Phone: 08-04-2022 11:02-0400 Body weight 57.61 kg Micheal M Hoy Work Phone: [facility] 250 DO Work Phone: 08-04-2022 11:02-0400 Diastolic blood pressure 60 mm[Hg] Micheal M Hoy Work Phone: [facility] 250 DO Work Phone: 08-04-2022 11:02-0400 Heart rate 82 /min Micheal M Hoy Work Phone: [facility] 250 DO Work Phone: 08-04-2022 11:02-0400 Systolic blood pressure 120 mm[Hg] Micheal M Hoy Work Phone: [facility] 250 DO Work Phone: 03-12-2022 12:03-0400 Body height 180.34 cm Micheal M Hoy Work Phone: [facility] 250 DO Work Phone: 03-12-2022 12:03-0400 Body mass index (BMI) [Ratio] 19.67 kg/m2 Micheal M Hoy Work Phone: [facility] 250 DO Work Phone: 03-12-2022 12:03-0400 Body surface area Derived from formula 1.82 m2 Micheal M Hoy Work Phone: [facility] 250 DO Work Phone: 03-12-2022 12:03-0400 Body weight 63.96 kg Micheal M Hoy Work Phone: [facility] 250 DO Work Phone: 03-12-2022 12:03-0400 Diastolic blood pressure 64 mm[Hg] Micheal M Hoy Work Phone: [facility] 250 DO Work Phone: 03-12-2022 12:03-0400 Heart rate 64 /min Micheal Dick Hoy Work Phone: [facility] 250 DO Work Phone: 03-12-2022 12:03-0400 Systolic blood pressure 134 mm[Hg] Micheal Dick Hoy Work Phone: [facility] 250 DO Work Phone: 02-17-2022 15:33-0400 Body height 180.34 cm Micheal Dick Hoy Work Phone: [facility] 250 DO Work Phone: 02-17-2022 15:33-0400 Body mass index (BMI) [Ratio] 19.72 kg/m2 Micheal Dick Hoy Work Phone: [facility] 250 DO Work Phone: 02-17-2022 15:33-0400 Body surface area Derived from formula 1.82 m2 Micheal Dick Hoy Work Phone: [facility] 250 DO Work Phone: 02-17-2022 15:33-0400 Body weight 64.13 kg Micheal Dick Hoy Work Phone: [facility] 250 DO Work Phone: 02-17-2022 15:33-0400 Diastolic blood pressure 70 mm[Hg] Micheal M Hoy Work Phone: [facility] 250 DO Work Phone: 02-17-2022 15:33-0400 Heart rate 80 /min Micheal M Hoy Work Phone: [facility] 250 DO Work Phone: 02-17-2022 15:33-0400 Systolic blood pressure 124 mm[Hg] Micheal M Hoy Work Phone: [facility] 250 DO Work Phone: 2022 14:04-0400 Body height 170.8 cm Billie Guan MD Work Phone: [facility] 2022 14:04-0400 Body weight 62.14 kg Billie Guan MD Work Phone: [facility] 2022 14:04-0400 Diastolic blood pressure 76 mm[Hg] Billie Guan MD Work Phone: [facility] 2022 14:04-0400 Heart rate 78 /min Billie Guan MD Work Phone: [facility] 2022 14:04-0400 Systolic blood pressure 124 mm[Hg] Billie Guan MD Work Phone: [facility] 01-12-2022 11:28-0400 Body height 180.34 cm Micheal M Hoy Work Phone: [facility] 250 DO Work Phone: 01-12-2022 11:28-0400 Body mass index (BMI) [Ratio] 18.69 kg/m2 Micheal M Hoy Work Phone: [facility] 250 DO Work Phone: 01-12-2022 11:28-0400 Body surface area Derived from formula 1.78 m2 Micheal M Hoy Work Phone: [facility] 250 DO Work Phone: 01-12-2022 11:28-0400 Body weight 60.78 kg Micheal M Hoy Work Phone: [facility] 250 DO Work Phone: 01-12-2022 11:28-0400 Diastolic blood pressure 52 mm[Hg] Micheal M Hoy Work Phone: [facility] 250 DO Work Phone: 01-12-2022 11:28-0400 Heart rate 96 /min Micheal Gutiérrez Work Phone: [facility] 250 DO Work Phone: 01-12-2022 11:28-0400 Systolic blood pressure 100 mm[Hg] Micheal Gutiérrez Work Phone: [facility] 250 DO Work Phone: 12-31-2021 12:26-0400 Body temperature 98.4 [degF] Wanchana Sachai PEDIATRIC REGISTERED NURSE.BUSINESS CONSULTANT Work Phone: [facility] 12-31-2021 12:26-0400 Diastolic blood pressure 85 mm[Hg] Wanchana Sachai PEDIATRIC REGISTERED NURSE.BUSINESS CONSULTANT Work Phone: [facility] 12-31-2021 12:26-0400 Heart rate 67 /min Wanchana Sachai PEDIATRIC REGISTERED NURSE.BUSINESS CONSULTANT Work Phone: [facility] 12-31-2021 12:26-0400 SaO2% (BldA) [Mass fraction] 98 % Wanchana Sachai PEDIATRIC REGISTERED NURSE.BUSINESS CONSULTANT Work Phone: [facility] 12-31-2021 12:26-0400 Systolic blood pressure 138 mm[Hg] Wanchana Sachai PEDIATRIC REGISTERED NURSE.BUSINESS CONSULTANT Work Phone: [facility] 12-31-2021 09:48-0400 Body height 170.8 cm Idris Hawk MD Work Phone: [facility] 12-31-2021 09:48-0400 Body temperature 97.5 [degF] Idris Hawk MD Work Phone: [facility] 12-31-2021 09:48-0400 Body weight 58.92 kg Idris Hawk MD Work Phone: [facility] 12-31-2021 09:48-0400 Diastolic blood pressure 57 mm[Hg] Idris Hawk MD Work Phone: [facility] 12-31-2021 09:48-0400 Heart rate 93 /min Idrsi Hawk MD Work Phone: [facility] 12-31-2021 09:48-0400 Respiratory rate 24 /min Irdis Hawk MD Work Phone: [facility] 12-31-2021 09:48-0400 SaO2% (BldA) [Mass fraction] 99 % Idris Hawk MD Work Phone: [facility] 12-31-2021 09:48-0400 Systolic blood pressure 104 mm[Hg] Idris Hawk MD Work Phone: [facility] 11-27-2021 13:06-0400 Body height 180.3 cm Alissa Arrigon PEDIATRIC REGISTERED NURSE.BUSINESS CONSULTANT Work Phone: [facility] 11-27-2021 13:06-0400 Body weight 58.88 kg Alissa Arrigon PEDIATRIC REGISTERED NURSE.BUSINESS CONSULTANT Work Phone: [facility] 11-27-2021 13:06-0400 Diastolic blood pressure 63 mm[Hg] Alissa Arrigon PEDIATRIC REGISTERED NURSE.BUSINESS CONSULTANT Work Phone: [facility] 11-27-2021 13:06-0400 Heart rate 97 /min Alissa Arrigon PEDIATRIC REGISTERED NURSE.BUSINESS CONSULTANT Work Phone: [facility] 11-27-2021 13:06-0400 Systolic blood pressure 125 mm[Hg] Alissa Arrigon PEDIATRIC REGISTERED NURSE.BUSINESS CONSULTANT Work Phone: [facility] 11-04-2021 09:45-0400 60 1 Micheal M Hoy Work Phone: [facility] [place] Work Phone: Comment on above: [id number] 09-11-2021 10:19-0400 Body height 180.34 cm Micheal M Hoy Work Phone: [facility] 250 DO Work Phone: 09-11-2021 10:19-0400 Body mass index (BMI) [Ratio] 20.92 kg/m2 Micheal M Hoy Work Phone: [facility] 250 DO Work Phone: 09-11-2021 10:19-0400 Body surface area Derived from formula 1.87 m2 Micheal M Hoy Work Phone: [facility] 250 DO Work Phone: 09-11-2021 10:19-0400 Body weight 68.04 kg Micheal M Hoy Work Phone: [facility] 250 DO Work Phone: 09-11-2021 10:19-0400 Diastolic blood pressure 69 mm[Hg] Micheal M Hoy Work Phone: [facility] 250 DO Work Phone: 09-11-2021 10:19-0400 Heart rate 77 /min Micheal M Hoy Work Phone: [facility] 250 DO Work Phone: 09-11-2021 10:19-0400 Systolic blood pressure 101 mm[Hg] Micheal M Hoy Work Phone: [facility] 250 DO Work Phone: Encounters Encounter Date Encounter Type Care Provider Facility Start: 02-04-2023 Office outpatient vi sit 25 minutes Micheal M Hoy Work Phone: [facility] 250 DO Work Phone: Start: 02-04-[address] Lauro Collins Facility: Start: 11-27-[address] Micheal Gutiérrez Facility:[id number] Start: 11-26-[address] Micheal Gutiérrez Facility:[id number] Start: 11-25-2022 End: 11-30-2022 Evaluation and management of inpatient Rosie Mischler Facility:[facility] Start: 11-25-2022 Evaluation and management of inpatient MD Micheal Gutiérrez Work Phone: [facility] [place] [facility] Work Phone: Start: 10-05-2022 End: 10-05-2022 ambulatory ANAHY CHAUDHRY . Facility:[facility]1 Start: 09-11-2022 End: 09-12-[address] RANGEL MCGOVERN . Facility:[facility] Start: 09-10-2022 ambulatory DEVON SILVESTRE . Facili ty:H1 Start: 08-17-2022 End: 08-18-[address] MICHEAL GUTIÉRREZ . Facility:[facility]1 Start: 08-04-2022 Office outpatient vi sit 25 minutes Micheal Gutiérrez Work Phone: [facility] 250 DO Work Phone: Start: 08-04-[address] Lauro Collins Facility: Start: 07-30-2022 End: 07-31-[address] MICHEAL GUTIÉRREZ . Facility:[facility]1 Start: 07-28-2022 End: 07-29-2022 ambulatory MYNOR TEIXEIRAMIGREGORY . Facility:[facility] Start: 07-16-2022 End: 07-17-2022 ambulatory MYNOR TEIXEIRAMIPATHBraydon . Facility:[facility]1 Start: 07-13-2022 Telephone encounter Micheal Gutiérrez Work Phone: [facility] 250 DO Work Phone: Start: 07-10-2022 End: 07-10-2022 ambulatory Hansel Otero PA-C Work Phone: General Surgery Comment on above: S/P percutaneous end oscopic gastrostomy (PEG) tube placement (HCC) (Primary Dx) Start: 07-10-2022 End: 07-10-2022 Telemedicine consultation with patient Hansel Otero PA-C Work Phone: [facility] Start: 07-01-2022 End: 07-01-2022 [...] 40 minutes Micheal M Hoy Work Phone: [facility] 250 DO Work Phone: Start: 02-20-2022 End: 02-20-2022 ambulatory MICHEAL GUTIÉRREZ Facility:[facility] Start: 02-17-2022 Office outpatient vi sit 15 minutes Micheal M Hoy Work Phone: [facility] 250 DO Work Phone: Start: 02-17-2022 Patient encounter procedure Micheal M Hoy Work Phone: [facility] 250 DO Work Phone: Start: 02-17-2022 Refill Alissa Colindres on PEDIATRIC REGISTERED NURSE.BUSINESS CONSULTANT Work Phone: Urology Comment on above: Opened In Error Start: 02-02-2022 Encounter for other preprocedural examination BILLIE GUAN [facility] Start: 02-02-2022 End: 02-03-2022 Evaluation and management of inpatient BILLIE Roxanna FREIDA Facility:[facility] Start: 02-02-2022 Telephone encounter Alissa mcqueen APRN.BUSINESS CONSULTANT Work Phone: Urology Comment on above: Medication Problem Start: 01-27-2022 ambulatory Rivka Crespo RN General Surgery Comment on above: 01/28/2022 Start: 01-27-2022 Preprocedural examination done Rivka Crespo RN General Surgery Start: 01-27-2022 Telephone encounter Thu Lancaster RN General Surgery Comment on above: Patient Update Start: 01-24-2022 End: 01-24-2022 ambulatory MICHEAL GUTIÉRREZ Facility:[facility] Start: 2022 End: 01-24-2022 ambulatory [facility] Facility:[facility] Start: 2022 End: 2022 Patient encounter procedure Billie Guan MD Work Phone: General Surgery Comment on above: 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) Start: 01-17-2022 End: 01-17-[address] ANAMARIA BENITEZ Facility: Start: 01-16-2022 End: 01-16-2022 Subsequent hospital visit by physician [facility] (I-Stat/1.5t) Radiology Comment on above: 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] Start: 01-12-2022 Office outpatient vi sit 25 minutes Micheal Gutiérrez Work Phone: [facility] 250 DO Work Phone: Start: 01-08-2022 ambulatory Alissa partida PEDIATRIC REGISTERED NURSE.BUSINESS CONSULTANT Work Phone: Urology Comment on above: MBS results Start: 01-05-2022 End: 01-05-2022 ambulatory Micheal Gutiérrez Facility:[facility] Start: 01-05-2022 End: 01-05-2022 Patient encounter procedure MD Micheal Gutiérrez Work Phone: [facility] [employer] Start: 01-02-[address] MICHEAL GUTIÉRREZ . Facili ty:H1 Start: 12-31-2021 End: 12-31-2021 Emergency department patient visit MICHEAL GUTIÉRREZ Facility:[facility] Start: 12-31-2021 End: 12-31-2021 ambulatory MICHEAL SARMIENTOBraydon Facility:[facility] Start: 12-31-2021 End: 12-31-2021 Office outpatient new 30 minutes Yadira Frazier PEDIATRIC REGISTERED NURSE.BUSINESS CONSULTANT Work Phone: [facility] Comment on above: Feeding tube blocked , initial encounter (Primary Dx); SOB (shortness of breath) on exertion; Chronic cough Start: 12-31-2021 End: 12-31-2021 ambulatory MICHEAL GUTIÉRREZ Facility:[facility] Start: 12-31-2021 End: 12-31-2021 Patient encounter procedure Idris Hawk MD Work Phone: Vascular Surg Dept Comment on above: Peripheral arterial disease (HCC) (Primary Dx) Start: 12-24-2021 End: 12-24-2021 ambulatory Michealkiersten Sarmientobraydon [facility] [facility] Start: 12-24-2021 End: 12-24-2021 Discharged Recurring MD Micheal Gutiérrez Work Phone: [facility]-Speech Therapy [facility] Start: 12-19-2021 End: 12-20-[address] MICHEAL GUTIÉRREZ . Facility:[facility] Start: 12-18-2021 End: 12-19-[address] MICHEAL GUTIÉRREZ . Facility:[facility] Start: 12-13-2021 Telephone encounter Brock garcia MD Work Phone: Urology Comment on above: Patient Question Start: 12-04-2021 End: 12-04-2021 ambulatory ALISSA LACKEY Facility:[facility] Start: 12-04-2021 Telephone encounter Alissa mcqueen PEDIATRIC REGISTERED NURSE.BUSINESS CONSULTANT Work Phone: Urology Comment on above: Results Start: 12-03-2021 ambulatory Alissa partida PEDIATRIC REGISTERED NURSE.BUSINESS CONSULTANT Work Phone: Urology Comment on above: Kidney CT Start: 12-02-2021 End: 12-02-2021 ambulatory ALISSA Florencia ARRIGON Facility:[facility] Start: 12-02-2021 End: 12-02-2021 Subsequent hospital visit by physician Karlene [facility] Karla Work Phone: Radiology Comment on above: Renal lesion [N28.9] Start: 11-27-2021 End: 11-28-2021 ambulatory Alissa P Arrigon PEDIATRIC REGISTERED NURSE.BUSINESS CONSULTANT Work Phone: Urology Start: 11-27-2021 Telephone encounter Micheal Gutiérrez MD Work Phone: NOC Comment on above: Follow Up Phone Call (All Clear) Start: 11-27-2021 End: 11-27-2021 Patient encounter procedure Alissa Torrezn PEDIATRIC REGISTERED NURSE.BUSINESS CONSULTANT Work Phone: Urology Comment on above: Urinary retention (P rimary Dx); Renal lesion Start: 11-21-2021 Admission to [facility] Micheal Gutiérrez MD Work Phone: [facility] Work Phone: Start: 11-20-2021 Telephone encounter Idris Hawk MD Work Phone: Vascular Surg Dept Comment on above: Appointment Start: 11-19-2021 Telephone encounter Micheal Gutiérrez [facility] Work Phone: Start: 11-11-2021 Chart Update Micheal Gutiérrez Work Phone: [facility] 250 DO Work Phone: Start: 11-11-[address] SHUKRI HONG . Facility: Start: 11-10-2021 Admission to [facility] Work Phone: Start: 11-09-2021 End: 11-20-2021 Evaluation and management of inpatient [facility] Facility:[facility] Start: 11-04-2021 Patient encounter procedure Micheal Gutiérrez Work Phone: [facility] [address] [place] Work Phone: Start: 10-28-2021 End: 10-28-[address] MICHEAL GUTIÉRREZ . Facility: Start: 09-23-2021 AUDIT Micheal Gutiérrez Work Phone: [facility] 250 DO Work Phone: Start: 09-11-2021 Office outpatient vi sit 40 minutes Micheal Gutiérrez Work Phone: [facility] 250 DO Work Phone: Start: 04-20-2018 End: 04-21-2018 Patient encounter procedure DEFAULT PHYSICIAN Facility:[facility] Procedures Date Procedure Procedure Detail Performing Clinician Start: 11-25-2022 Plain chest X-ray MD Micheal Gutiérrez Work Phone: Start: 12-02-2021 Ct abdomen w/o & w/contrast material Alissa Lackey APRN.BUSINESS CONSULTANT Work Phone: Start: 11-15-2021 Antibody screen MICHEAL GUTIÉRREZ Comment on above: Order Comment: Specimen Type: BLOOD SPEC IMENOrdering Facility: [facility] Address: [address] [place] [address] Performed By: #### T SCR ####CC MAIN BLOOD BANKCLIA [id number] [address] Start: 11-10-2021 Antibody screen MICHEAL GUTIÉRREZ Comment on above: Order Comment: Specimen Type: BLOOD SPEC IMENOrdering Facility: [facility] Address: [address] [place] [address] Performed By: #### T SCR ####CC MAIN BLOOD BANKCLIA [id number] [address] Start: 11-10-2021 History of percutaneous transluminal [...] Author Start: 02-03-2025 DIABETES SCREEN DIABETES SCREEN [facility] Start: 11-14-2024 DIABETES SCREEN DIABETES SCREEN [facility] Start: 08-05-2023 FUV, Provider: Lauro Collins, Status: Pen, Time: 11:10 AM FUV, Provider: Lauro Collins, Status: Pen, Time: 11:10 AM [facility] 250 DO Work Phone: Start: 01-22-2023 Influenza vaccination INFLUENZA (#1) [facility] Start: 01-05-2023 FUV, Provider: Lauro Collins, Status: Pen, Time: 2:50 PM FUV, Provider: Lauro Collins, Status: Pen, Time: 2:50 PM [facility] 250 DO Work Phone: Start: 12-31-2022 ANNUAL PCP TEAM UNLOAD ASSOCIATE CRISTY DISEASE VISIT ANNUAL PCP TEAM CHRONIC DISEASE VISIT [facility] Start: 11-26-2022 Blood chemistry [facility] Start: 11-26-2022 [facility] Start: 11-25-2022 End: 11-25-2022 [facility] Start: 11-25-2022 Physical therapy procedure [facility] Start: 11-25-2022 Referral to husbandry person [facility] Start: 11-25-2022 Referral to occupational therapist [facility] Start: 11-25-2022 Hospital admission [facility] Start: 11-25-2022 Bacteria identified in Blood by Culture [facility] Start: 08-04-2022 FUV, Provider: Lauro Collins, Status: Pen, Time: 10:30 AM FUV, Provider: Lauro Collins, Status: Pen, Time: 10:30 AM -[facility] 250 DO Work Phone: Start: 05-24-2022 ADVANCE DIRECTIVE DISCUSSION ADVANCE DIRECTIVE DISCUSSION [facility] Start: 05-24-2022 DEPRESSION ASSESSMENT DEPRESSION ASS ESSMENT [facility] Start: 03-12-2022 FUV, Provider: Lauro Collins, Status: Pen, Time: 11:40 AM FUV, Provider: Lauro Collins, Status: Pen, Time: 11:40 AM -[facility] 250 DO Work Phone: Start: 03-11-2022 FUV, Provider: Lauro Collins, Status: Pen, Time: 10:40 AM FUV, Provider: Lauro Collins, Status: Pen, Time: 10:40 AM -[facility] 250 DO Work Phone: Start: 01-27-2022 FUV, Provider: Rochelle Herrmann, Status: Pen, Time: 3:30 PM FUV, Provider: Rochelle Herrmann, Status: Pen, Time: 3:30 PM -[facility] 250 DO Work Phone: Start: 01-22-2022 Influenza vaccination INFLUENZA (#1) [facility] Start: 12-04-2021 End: 02-03-2022 Bacteria identified in Urine by Culture URINE CULTURE Microbiology Routine Cloudy urine Expected: 12/04/2021, Expires: 02/03/2022 [facility] Work Phone: Comment on above: Expected: 12/04/2021 , Expires: 02/03/2022 Start: 11-04-2021 PVR, Provider: KIMU MARIKA [facility] ULTRASOUND 01,[id number], Status: Pen, Time: 10:45 AM PVR, Provider: HERIBERTO [facility] ULTRASOUND 01,[id number], Status: Pen, Time: 10:45 AM [facility] Work Phone: Start: 11-04-2021 ECHO, Provider: HERIBERTO [facility] ULTRASOUND 01,[id number], Status: Pen, Time: 9:45 AM ECHO, Provider: [facility]ERTO [facility]TR[facility]OUND 01,[id number], Status: Pen, Time: 9:45 AM [facility] Work Phone: Start: 10-08-2021 PVR, Provider: KIMAndrés MARIKA [facility]TR[facility]OUND 01,[id number], Status: Pen, Time: 10:45 AM PVR, Provider: HERIBERTO [facility]TR[facility] 01,[id number], Status: Pen, Time: 10:45 AM [facility] 250 DO Work Phone: Start: 10-08-2021 ECHO, Provider: HERIBERTO [facility] 01,[id number], Status: Pen, Time: 9:45 AM ECHO, Provider: [facility]IBERTO [facility] 01,[id number], Status: Pen, Time: 9:45 AM [facility] 250 DO Work Phone: Start: 07-30-2021 COVID-19 VACCINE (4 - Booster for Moderna series) COVID-19 VACCINE (4 - Booster for Moderna series) [facility] Start: 05-27-2021 COVID-19 VACCINE (4 - Booster for Moderna series) COVID-19 VACCINE (4 - Booster for Moderna series) [facility] Start: 05-27-2021 COVID-19 VACCINE (4 - Moderna series) COVID-19 VACCINE (4 - Moderna series) [facility] Start: 05-24-2021 ADVANCE DIRECTIVE DISCUSSION ADVANCE DIRECTIVE DISCUSSION [facility] Start: 05-24-2021 DEPRESSION ASSESSMENT DEPRESSION ASS ESSMENT [facility] Start: 2007 PNEUMOCOCCAL: 65+ (1 - PCV) PNEUMOCOCCAL: 65+ (1 - PCV) [facility] Start: 01-24-1992 SHINGRIX VACCINE (1 of 2) SHINGRIX VACCINE (1 of 2) [facility] Start: 1961 Urine microalbumin profile DTAP,TDAP,TD (1 - Tdap) [facility] Start: 01-24-1960 ANNUAL PCP TEAM UNLOAD ASSOCIATE CRISTY DISEASE VISIT ANNUAL PCP TEAM CHRONIC DISEASE VISIT [facility] Start: 01-24-1960 Hepatitis B surface antibody level LDL CHOLESTEROL [facility] Start: 1954 Adult depression screening assessment DEPRESSION SCREENING [facility] Start: 01-24-1948 PNEUMOCOCCAL: 65+ (1 - PCV) PNEUMOCOCCAL: 65+ (1 - PCV) [facility] End: 12-27-2022 Ct abdomen w/o & w/contrast material CT KIDNEY WO/W IVCON Radiology Routine Renal lesion 1 Occurrences starting 11/27/2021 until 12/27/2022 [facility] Work Phone: Comment on above: 1 Occurrences starti ng 11/27/2021 until 12/27/2022 End: 01-03-2023 Mri abdomen w/o & w/contrast material MRI KIDNEY WO/W IVCON Radiology Routine Other specified disorders of kidney and ureter 1 Occurrences starting 12/04/2021 until 01/03/2023 [facility] Work Phone: Comment on above: 1 Occurrences starti ng 12/04/2021 until 01/03/2023 URINALYSIS, REFLEX MICROSCOPIC URINALYSIS, REFLEX MICROSCOPIC Lab Routine Screening for genitourinary condition Ordered: 11/27/2021 [facility] Work Phone: Comment on above: Ordered: 11/27/2021 URINALYSIS, REFLEX MICROSCOPIC URINALYSIS, REFLEX MICROSCOPIC Lab Routine Screening for genitourinary condition Ordered: 12/03/2021 [facility] Work Phone: Comment on above: Ordered: 12/03/2021 [facility] Immunizations Immunization Date Immunization Notes Care Provider Reji prieto 03-05-2022 influenza, high dose seasonal, preservative-free Micheal M Hoy Work Phone: [facility] 250 DO Work Phone: Comment on above: Series: 04-01-2021 Moderna COVID-19 Vac cine 100 MCG/0.5ML Intramuscular Suspension Micheal M Hoy Work Phone: [facility] Work Phone: 03-13-2021 influenza, injectabl e, quadrivalent, preservative free Micheal M Hoy Work Phone: [facility] 250 DO Work Phone: Comment on above: Series: 02-17-2021 Seasonal trivalent influenza vaccine, adjuvanted, preservative free Micheal M Hoy Work Phone: [facility] Work Phone: 08-22-2020 pneumococcal polysaccharide vaccine, 23 valent Micheal M Hoy Work Phone: [facility] 250 DO Work Phone: Comment on above: Series: 07-19-2020 Moderna COVID-19 Vac cine 100 MCG/0.5ML Intramuscular Suspension Micheal M Hoy Work Phone: [facility] Work Phone: 06-21-2020 Moderna COVID-19 Vac cine 100 MCG/0.5ML Intramuscular Suspension Micheal M Hoy Work Phone: [facility] Work Phone: 03-06-2020 influenza, high dose seasonal, preservative-free Micheal M Hoy Work Phone: [facility] Work Phone: 02-23-2020 Seasonal trivalent influenza vaccine, adjuvanted, preservative free Micheal M Hoy Work Phone: [facility] Work Phone: 04-06-2018 influenza, injectabl e, quadrivalent, preservative free Micheal M Torsteny Work Phone: [facility] Work Phone: 02-28-2018 tetanus and diphther ia toxoids, adsorbed, preservative free, for adult use (5 Lf of tetanus toxoid and 2 Lf of diphtheria toxoid) Micheal Sarmientoy Work Phone: [facility] Work Phone: 07-12-2017 influenza, injectabl e, quadrivalent, preservative free Micheal M Hoy Work Phone: [facility] Work Phone: 04-07-2017 zoster vaccine, live Micheal Jennings [place] Work Phone: [facility] Work Phone: 02-15-2017 influenza, high dose seasonal, preservative-free Micheal M Torsteny Work Phone: [facility] Work Phone: 02-15-2017 pneumococcal conjuga te vaccine, 13 valent Micheal M Torsteny Work Phone: [facility] Work Phone: 05-24-2016 pneumococcal conjuga te vaccine, 13 valent Micheal M Hoy Work Phone: [facility] Work Phone: 03-04-2016 influenza, injectabl e, quadrivalent, preservative free Micheal M Hoy Work Phone: [facility] Work Phone: 07-29-2015 influenza, injectabl e, quadrivalent, preservative free Micheal M Hoy Work Phone: [facility] Work Phone: 03-06-2015 pneumococcal polysaccharide vaccine, 23 valent Micheal M Hoy Work Phone: [facility] Work Phone: 01-03-2015 tetanus toxoid, redu mark diphtheria toxoid, and acellular pertussis vaccine, adsorbed Micheal M Marla Work Phone: [facility] Work Phone: 05-09-2009 novel influenza-H1N1 -09, preservative-free, injectable Micheal Gutiérrez Work Phone: [facility] Work Phone: Payers Date Payer Category Payer Medicare [id number] 2021 Self-pay [id number] 2021 [place] [id number] 2021-Present [phone] [address] [place] [address] Medicaid [id number] 2021 [place] [id number] 2021-Present [phone] [address] [place] [address] Medicaid [id number] 2020 Unknown 2020 Unknown ANTHEM BLUE CROS S AND BLUE SHIELD ANTHEM MEDIBLUE HMO [id number] 2020-Present [phone] [address] [place] [address] O [id number] 1959 Medicaid [id number] 1959 Medicare [id number] 1959 Self-pay [id number] 1942 Unknown [id number] 2.16.840.1.227860.3.579.2.647 1942 Unknown [id number] 2.16.840.1.502206.3.579.2.593 1942 Unknown [id number] 2.16.840.1.371126.3.579.2.593 1942 Unknown [id number] 2.16.840.1.864903.3.579.2.593 1942 Unknown [id number] 2.16.840.1.239784.3.579.2.593 1942 Unknown [id number] 2.16.840.1.639104.3.579.2.593 1942 Unknown [id number] 2.16.840.1.822377.3.579.2.593 1942 Unknown [id number] 2.16.840.1.378650.3.579.2.593 1942 Unknown [id number] 2.16.840.1.444187.3.579.2.593 1942 Unknown [id number] 2.16.840.1.304381.3.579.2.593 1942 Unknown [id number] 2.16.840.1.816179.3.579.2.593 1942 Unknown [id number] 2.16.840.1.110677.3.579.2.593 1942 Unknown [id number] 2.16.840.1.254212.3.579.2.593 1942 Unknown [id number] 2.16.840.1.544052.3.579.2.593 1942 Unknown [id number] 2.16.840.1.217329.3.579.2.593 1942 Unknown [id number] 2.16.840.1.363211.3.579.2.593 1942 Unknown [id number] 2.16.840.1.161858.3.579.2.593 1942 Unknown [id number] 2.16.840.1.603274.3.579.2.593 1942 Unknown [id number] 2.16.840.1.309993.3.579.2.593 1942 Unknown [id number] 2.16.840.1.923196.3.579.2.593 1942 Unknown [id number] 2.16.840.1.546541.3.579.2.593 1942 Unknown [id number] 2.16.840.1.822230.3.579.2.593 1942 Unknown [id number] 2.16.840.1.518795.3.579.2.593 1942 Unknown [id number] 2.16.840.1.944499.3.579.2.593 1942 Unknown [id number] 2.16.840.1.315701.3.579.2.593 1942 Unknown [id number] 2.16.840.1.557018.3.579.2.593 1942 Unknown [id number] 2.16.840.1.506764.3.579.2.356 1942 Unknown [id number] 2.16.840.1.888561.3.579.2.356 1942 Unknown [id number] 2.16.840.1.491671.3.579.2.356 1942 Unknown [id number] 2.16.840.1.391207.3.579.2.356 1942 Unknown [id number] 2.16.840.1.058466.3.579.2.356 1942 Unknown [id number] 2.16.840.1.256971.3.579.2.356 1942 Unknown [id number] 2.16.840.1.052049.3.579.2.356 Medicare Medicare [id number] Medicare Medicare Outpatient [id number] Medicare [id number] Unknown [id number] 2.16.840.1.546789.3.579.2.531 Unknown [id number] 2.16.840.1.150562.3.579.2.531 Unknown [id number] 2.16.840.1.193142.3.579.2.531 Social History Date Type Detail Facility Start: 11-10-2021 End: 11-27-2021 No illicit drug use No illicit drug use [facility] 250 DO Work Phone: Comment on above: some tea; 5 cigarettes; 1 ppd; Start: 07-07-2021 [facility] consumption unknown [facility] Start: 1940 Sex Assigned At Male [facility] Start: 11-01-2021 End: 02-02-2022 Exposure to SARS-CoV-2 (event) Not sure [facility] Start: 11-27-2021 End: 12-31-2021 Tobacco smoking status NEIS Smokes tobacco daily [facility] Start: 11-27-2021 End: 12-31-2021 Tobacco use and exposure Former smokeless tobacco user [facility] Start: 11-25-2022 Tobacco smoking [facility] ([facility] Start: 11-10-2021 End: 11-27-2021 Tobacco use panel [facility] National Score (1-10 0), lower number is lower risk 83 [facility] Start: 11-16-2021 Gender identity Identifies as male gender (finding) [facility] Start: 11-16-2021 Sexual orientation Heterosexual (ángel colmenares) [facility] Medical Equipment Procedure Code Equipment Code Equipment Origin al Text Equipment Identifier Dates use 1 TEST STRIP to TEST BLOOD SUGAR twice a day Start: 12-13-2021 Comment on above: use 1 TEST STRIP to TEST BLOOD SUGAR twice a day Drug-eluting coronary artery stent, non-bioabsorbable- polymer-coated [id number] FDA Start: 07-08-2021 Kit Endovive 20f r Standard [place] Silicone Peg Pull Method Drea - [id number] Start: 02-02-2022 Clinical Notes 11-10-2021 to 07-28-2022 Hansel Otero PA-C - 07/10/2022 2:14 PM ESTTelephone Encounter - Alissa Lackey PEDIATRIC REGISTERED NURSE.NADER - 02/02/2022 2:58 PM EDTTelephone Encounter - Thu [place] RN - 01/27/2022 8:21 PM EDT Note Date & Type Note Facility 07-28-2022 Note [facility] 07-28-2022 Note [facility] 07-16-2022 Note [facility] 07-16-2022 Note [facility] 07-10-2022 Note [facility] 07-10-2022 History of Presen t [...] TIME: 2:14 PM documented in this encounter [facility] 02-20-2022 Note [facility] 02-03-2022 Note [facility] 02-03-2022 Note HNO ID: [id number] Author: Elva Farias RN Service: Nursing Author Type: Registered Nurse Type: Nursing Progress Note Filed: 02/03/2022 6:30 AM Note Text: Patient refused turn and ambulation and was educated on benefits. [facility] 02-03-2022 Note [facility] 02-02-2022 Note [facility] 02-02-2022 Miscellaneous Notes Talked with [...] Alissa Lackey APRN.CNP documented in this encounter [facility] 01-27-2022 Miscellaneous Notes BMI SPECIALTY CARE COORDINATION [...] NPO after midnight. documented in this encounter [facility] 2022 Note [facility] 2022 History of Presen t [...] DATE: 2022 TIME: 2:56 PM PAGER/CONTACT #: [phone] documented in this encounter [facility] 01-12-2022 Miscellaneous Notes Replied to more recent message regarding MBS. Alissa Lackey APRN.CNP documented in this encounter [facility] 12-31-2021 Note [facility] 12-31-2021 Nurse Note Franki Hernandez [...] Naveed Nicholson LPN documented in this encounter [facility] 12-31-2021 History of Presen t illness Narrative Images from the original note were not included. Medicine [place] Department of General Internal Medicine [facility] Outpatient Visit Date: December 31, 2021 CC: Patient presents with: Physiological Problem - GI HPI:Franki Hernandez is a 81 year old male who presents today to the internal medicine department 0 walk in clinic for a complains of list above. 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 Hx angiogram with intervention at [facility] in [place] with bilateral iliac stents and R EIA stent in 2009 (reports not currently available). PCP: Micheal Gutiérrez MD, MD Last visit: Patient [place] from [facility]. He is here with his daughter who provides most of patient's history. Patient has difficulty swallowing , has h/o throat cancer ~ 25 years. His daughter reports 5 years ago, he had a partial resection of epiglottis. 07/06/2021 - he had a massive CT, intubation was difficulty and his throat muscle was stretching. He was on thick liquid and got aspiration PNA, he then got admitted and hospitalization. They decided to put him on NG tube. He started loosing weights ~ 60 lbs. They decided to give him a peg tube , but it was accidentally placed on his colon at [facility] in [place]. States he almost . 11/09/2021- they drove [...] States he saw the speech therapist at [facility] and was told that he [...] Myocardial infarction (HCC) PAD (peripheral artery disease) ([facility]) Social History Tobacco Use Smoking status: Every Day Smokeless tobacco: Former ACTIVE PROBLEM LIST Diarrhea Severe Protein-Calorie Malnutrition (Hcc) History of CT (Myocardial Infarction) History of Ptca History of Cardiac Arrest Coronary Artery Disease Involving [place] Coronary Artery of [place] Heart Without Angina Pectoris Encounter for Preoperative [...] with PCP and Gen surg Yadira Frazier APRN.BUSINESS CONSULTANT I spent a total of 35 minutes on the date of the service which included preparing to see the patient, [id number] patient care, completing clinical documentation, obtaining and/or reviewing separately obtained history, performing a medically appropriate examination, counseling and educating the patient/family/caregiver, and care coordination (not separately reported). documented in this encounter [facility] 12-31-2021 History and physical note Images from the original note were not included. 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 Hx angiogram with intervention at [facility] in [place] with bilateral iliac stents and R EIA [...] old male with hx of COPD, recent CT complicated by arrest and transverse colon injury [...] DATE: December 30, 2021 TIME: 9:02 AM [facility] STAFF PHYSICIAN NOTE OF PERSONAL INVOLVEMENT IN [...] SERVICE: 12:33 PM documented in this encounter [facility] 12-13-2021 Miscellaneous Notes Urology Telephone Note I spoke with pt over the phone today. I explained that her pharmacy does not carry the liquid formation of nitrofurantoin, not does the [facility] in [place]. She reports that she has been able to give him the nitrofurantoin capsules successfully and plans to continue giving it for the rest of the recommended course. Brock Cristina Jr., MD Reconstructive Urology Fellow documented in this encounter [facility] 12-04-2021 Miscellaneous Notes See today's telephone encounter. Alissa Lackey APRN.CNP documented in this encounter [facility] 12-04-2021 Miscellaneous Notes Received prompt call back from daughter. Advised that radiology recommended MRI to further evaluate renal lesion. Instructed her to call [phone] to schedule. Daughter reports that Franki Hernandez cathed after voiding several times, and all PVRs were low (about 45 mL). Advised that they can go ahead and stop ISC. Daughter reports that urine has been cloudy; concerned about infection from having Berry in. Will go to lab at [facility] to leave specimen for culture. Daughter reports [...] for daughter, advising that I had seen Vocent messages and CT results. Requested call back at [phone]. Alissa Lackey APRN.BUSINESS CONSULTANT documented in this encounter [facility] 12-02-2021 Note [facility] 12-02-2021 History of Presen t [...] TIME: 10:41 AM documented in this encounter [facility] 11-27-2021 Note [facility] 11-27-2021 Instructions Alissa Lackey APRN.CNP - 11/27/2021 2:20 PM EDT Please call me at [phone] if you have trouble with catheters or other questions. Please call radiology at [phone] of kidneys. 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 Daughter lives in [place]. 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 Franki Hernandez and are probably going to go to [place] with daughter next week, possibly through the winter. Daughter has questions about renal lesion noted on CT. Also has questions about follow up labs mentioned in discharge summary. Pantoprazole suspension not covered by insurance. Frederick Nielsen tried to dispense pills, but these can't go through tube. Daughter wants to know if [facility] pharmacy can ship pantoprazole to their [...] fat-containing left inguinal hernia with focal fluid. Criminal Investigator (topogram) images: No additional findings. = MEDICATIONS: [...] left renal lesion. Reordered pantoprazole suspension to [facility] pharmacy so daughter can investigate availability/pricing/alternativ es. Will message primary team members from discharge summary to let them know that Franki Hernandez needs follow up lab orders. I spent a total of 60 minutes on the date of the service which included preparing to see the patient, [id number] patient care, completing clinical documentation, performing a medically appropriate examination, counseling and educating the patient/family/caregiver, ordering medications, tests, or procedures and communicating with other HCPs (not separately reported). Electronically signed: Alissa Lackey APRN.NADER documented in this encounter [facility] 11-27-2021 Miscellaneous Notes PATIENT INFORMATION Record ID: [id number] Patient Name: [facility]: [facility] [place]: [facility] Attending: Peter Tobar Center: Hospital Medicine INSTRUCTIONS MA to remind patient of appointment date, time, location SURVEY INFORMATION Medical/Nurse Systems Integration Manager: Ruth Coronel 1. Your discharge instructions are [...] (Standard Question) No documented in this encounter [facility] 11-20-2021 Miscellaneous Notes Patient has been referred to Dr. Idris Hawk for evaluation and treatment. Patient has been diagnosed with PVD. Records are in Care Everywhere and [facility]. Referral information is in Epic under scanned documents. Please advise if any additional testing is needed prior to scheduling. Best Contact: Juli Rodas Macaroni Press Operator documented in this encounter [facility] 11-19-2021 Note [facility] 11-18-2021 Note [facility] 11-18-2021 Note [facility] 11-17-2021 Note [facility] 11-17-2021 Note [facility] 11-17-2021 Note [facility] 11-16-2021 Note [facility] 11-16-2021 Note [facility] 11-15-2021 Note [facility] 11-15-2021 Note [facility] 11-14-2021 Note [facility] 11-14-2021 Note [facility] 11-14-2021 Note [facility] 11-13-2021 Note [facility] 11-12-2021 Note [facility] 11-12-2021 Note [facility] 11-12-2021 Note [facility] 11-12-2021 Note [facility] 11-11-2021 Note [facility] 11-11-2021 Note [facility] 11-11-2021 Note [facility] 11-11-2021 Note [facility] 11-10-2021 Note [facility] 11-10-2021 Note [facility] 11-10-2021 Note [facility] 11-10-2021 Note [facility] Evaluation note Diagnosis Urinary retention- Primary Retention of urine, unspecified Renal lesion Unspecified disorder of kidney and ureter [facility] Diagnosis Screening for genitourinary condition Screening for other and unspecified genitourinary condition [facility] Diagnosis Cloudy urine- Primary Other nonspecific finding on examination of urine [facility] Diagnosis Screening for genitourinary condition Screening for other and unspecified genitourinary condition [facility]* Diagnosis Peripheral arterial disease (HCC)- Primary Peripheral vascular disease, unspecified documented in this encounter [facility] note* Diagnosis Feeding tube blocked, initial encounter- Primary SOB (shortness of breath) on exertion Shortness of breath Chronic cough Cough [facility]* Diagnosis Other specified disorders of kidney and ureter [facility]* Diagnosis Adult failure to thrive- Primary documented in this encounter [facility] noteNo assessment information availableL[facility] Work Phone: Evaluation note* Diagnosis Adult failure to thrive- Primary Pre-op examination Preoperative examination, unspecified Adult failure to thrive Pre-op examination Preoperative examination, unspecified documented in this encounter [facility] note* Diagnosis S/P percutaneous endoscopic gastrostomy (PEG) tube placement (HCC)- Primary [facility]* Diagnosis Onset Date Resolution Status Acute exacerbation of chroni c obstructive pulmonary disease acute Atrial fibrillation acute Diabetes acute Leukocytosis acute Urinary retention acute [facility] Work Phone: Evaluation note* Diagnosis Renal lesion Unspecified disorder of kidney and ureter [facility] N[facility]* The patient states [...] medication regimen. He denies medication side effects. [facility] DO Work Phone: History of Present [...] medication regimen. He denies medication side effects. [employer] DO Work Phone: History of Present illness [...] medication regimen. He denies medication side effects. [employer] Work Phone: History of Present illness Narrative* [...] medication regimen. He denies medication side effects. [employer] DO Work Phone: Summary Purpose Family History [...] Documents on File Type Date Recorded Patient Cold Header Operator Expl anation Advance Directive(s) 11/09/2021 9:21 PM Latest Code Status on File Code Status Date Activated Date Inactivated Comments Full Code 11/10/2021 4:09 AM Full Code Order Discussed With: Patient Latest Code Status on File Code Status Date Activated Date Inactivated Comments Full Code 11/10/2021 4:09 AM 11/20/2021 9:01 PM Documents on File Type Date Recorded Patient Cold Header Operator Expl anation Advance Directive(s) 11/09/2021 9:21 PM [...] pneumonia, aspiration pneumonia, heart failure, non-ST elevation CT with subsequent revascularization of the RCA with [...] today proceeded. Patient was apparently readmitted to [facility] ICU for dehydration/hypovolemia following his discharge from [facility] details of which are unknown. * [...] pneumonia, aspiration pneumonia, heart failure, non-ST elevation CT with subsequent revascularization of the RCA with [...] today proceeded. Patient was apparently readmitted to [facility] for dehydration/hypovolemia following his discharge from [facility] details of which are unknown. * [...] pneumonia, aspiration pneumonia, heart failure, non-ST elevation CT with subsequent revascularization of the RCA with [...] today proceeded. Patient was apparently readmitted to [facility] ICU for dehydration/hypovolemia following his discharge from [facility] details of which are unknown. * Patient is lost approximately 50 pounds over the past year due to his acute on chronic illnesses. * Recommendations obtain chemistry panel, BNP, echocardiogram to reassess ventricular function, recommend hydration and nutritional supplementation, will follow-up in 6 months * I was in the hospital at [facility] * FRANKI HERNANDEZ is being seen for a 4 month follow-up of coronary artery disease and cardiomyopathy. * Patient ambulatory with wheeled walker. * Accompanied by daughter. * Evaluated in clinic Dr. Collins August 2021. * October 2021 hospitalized at [facility] d/t malnutrition. Had PEG removed and [...] has had previous high risk non-ST elevation CT earlier this year July 2021, with subsequent revascularization of the RCA with drug-eluting stent and normalization of his LV function originally from 30 now up to 60% as measured by echo at [facility]. He has underlying peripheral vascular disease, ongoing tobacco use, COPD, history of throat cancer with PEG tube. * He underwent recent hospitalization at [facility] with significant weight loss and debility and [...] has had previous high risk non-ST elevation CT earlier this year July 2021, with subsequent revascularization of the RCA with drug-eluting stent and normalization of his LV function originally from 30 now up to 60% as measured by echo at [facility]. He has underlying peripheral vascular disease, ongoing tobacco use, COPD, history of throat cancer with PEG tube. * He underwent recent hospitalization at [facility] with significant weight loss and debility and [...] ago when he had a non-ST elevation CT associated with pneumonia, and initial ejection fraction [...] ago when he had a non-ST elevation CT associated with pneumonia, and initial ejection fraction [...] * I was in the hospital at [facility] * FRANKI HERNANDEZ is being seen for [...] hospitalizations over the past 6 months at [facility] for shortness of breath, dyspnea, A-fib, dehydration with hyperkalemia. * He has known history of ASHD with ischemic cardiomyopathy with improved left ventricular function per last measurement by echo with ejection fraction up to 45 to 50%. 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 * He has chronic dyspnea from a symptomatic standpoint; we will beauty counselor him on tobacco cessation for 3 to 5 minutes today; we will follow-up in 6 months with nurse practitioner with no further changes to his medical regimen at this time * FRANKI HERNANDEZ is being seen for med change, soon o/v. * Patient is a 83-year-old gentleman returns for follow-up. He has had several hospitalizations over the past 6 months at [facility] for shortness of breath, dyspnea, A-fib, dehydration with hyperkalemia. * He has known history of ASHD with ischemic cardiomyopathy with improved left ventricular function per last measurement by echo with ejection fraction up to 45 to 50%. 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 * He has chronic dyspnea from a symptomatic standpoint; we will beauty counselor him on tobacco cessation for 3 to 5 minutes today; we will follow-up in 6 months with nurse practitioner with no further changes to his medical regimen at this time Reason for Referral Specialty Diagnoses / Procedures Referred By Joni mitchell Referred To Contact CT IMAGING Diagnoses Renal lesion Procedures CT KIDNEY WO/W IVCON CT ABDOMEN W & W/O CONTRAST Alissa Lackey APRN.BUSINESS CONSULTANT [address] [place] [address] Ct Imaging Referral ID Status Reason Start Date Expiration Date Visits Requested Visits Authorized [id number] Pending Review Auto-Generat ed Referral 11/27/2021 12/27/2022 1 1 Specialty Diagnoses / Procedures Referred By Joni mitchell Referred To Contact MR IMAGING Diagnoses Other specified disorders of kidney and ureter Procedures MRI KIDNEY WO/W IVCON MRI ABDOMEN W/O & W/CONTRAST MATERIAL Alissa Lackey APRN.BUSINESS CONSULTANT [address] [place] [address] Mr Imaging Referral ID Status Reason Start Date Expiration Date Visits Requested Visits Authorized [id number] Authorized Auto-Generat ed Referral 12/04/2021 01/03/2023 1 1 Referral ID Status Reason Start Date Expiration Date V isits Requested Visits Authorized [id number] Closed Auto-Generate d Referral 11/27/2021 12/27/2022 1 [...] section and content) DATE CREATED AUTHOR 05/02/2018 [facility] DATE CREATED AUTHOR AUTHOR'S ORGANIZ ATION 11/09/2021 [facility] DATE CREATED AUTHOR AUTHOR'S ORGANIZ ATION 07/16/2022 [facility] DATE CREATED AUTHOR AUTHOR'S ORGANIZ ATION 10/07/2022 [facility] DATE CREATED AUTHOR AUTHOR'S ORGANIZ ATION 12/11/2022 [facility] DATE CREATED AUTHOR AUTHOR'S ORGANIZ ATION 01/02/2023 Nasir Brennan [facility] DATE CREATED AUTHOR AUTHOR'S ORGANIZ ATION 02/06/2023 [facility] DATE CREATED AUTHOR AUTHOR'S ORGANIZ ATION 02/06/2023 [employer] Comments (unrecognize d section and content) In the event this informatio n is protected by the Federal Confidentiality of Alcohol and Drug Abuse Patient Records regulations: The Federal rules restrict any use of the information to criminally investigate or prosecute any alcohol or drug abuse patient.[facility] the event this information is protected by the Federal Confidentiality of Alcohol and Drug Abuse Patient Records regulations: The Federal rules restrict any use of the information to criminally investigate or prosecute any alcohol or drug abuse patient.[facility] CenterIn the event this information is protected by the Federal Confidentiality of Alcohol and Drug Abuse Patient Records regulations: The Federal rules restrict any use of the information to criminally investigate or prosecute any alcohol or drug abuse patient.[facility] Center[facility] the event this information is protected by the Federal Confidentiality of Alcohol and Drug Abuse Patient Records regulations: The Federal rules restrict any use of the information to criminally investigate or prosecute any alcohol or drug abuse patient.[facility] CenterIn the event this information is protected by the Federal Confidentiality of Alcohol and Drug Abuse Patient Records regulations: The Federal rules restrict any use of the information to criminally investigate or prosecute any alcohol or drug abuse patient.[facility] CenterIn the event this information is protected by the Federal Confidentiality of Alcohol and Drug Abuse Patient Records regulations: The Federal rules restrict any use of the information to criminally investigate or prosecute any alcohol or drug abuse patient.[facility] CenterIn the event this information is protected by the Federal Confidentiality of Alcohol and Drug Abuse Patient Records regulations: The Federal rules restrict any use of the information to criminally investigate or prosecute any alcohol or drug abuse patient.[facility] CenterIn the event this information is protected by the Federal Confidentiality of Alcohol and Drug Abuse Patient Records regulations: The Federal rules restrict any use of the information to criminally investigate or prosecute any alcohol or drug abuse patient.[facility] CenterIn the event this information is protected by the Federal Confidentiality of Alcohol and Drug Abuse Patient Records regulations: The Federal rules restrict any use of the information to criminally investigate or prosecute any alcohol or drug abuse patient.[facility] CenterIn the event this information is protected by the Federal Confidentiality of Alcohol and Drug Abuse Patient Records regulations: The Federal rules restrict any use of the information to criminally investigate or prosecute any alcohol or drug abuse patient.[facility] CenterIn the event this information is protected by the Federal Confidentiality of Alcohol and Drug Abuse Patient Records regulations: The Federal rules restrict any use of the information to criminally investigate or prosecute any alcohol or drug abuse patient.[facility] CenterIn the event this information is protected by the Federal Confidentiality of Alcohol and Drug Abuse Patient Records regulations: The Federal rules restrict any use of the information to criminally investigate or prosecute any alcohol or drug abuse patient.[facility] CenterIn the event this information is protected by the Federal Confidentiality of Alcohol and Drug Abuse Patient Records regulations: The Federal rules restrict any use of the information to criminally investigate or prosecute any alcohol or drug abuse patient.[facility] CenterIn the event this information is protected by the Federal Confidentiality of Alcohol and Drug Abuse Patient Records regulations: The Federal rules restrict any use of the information to criminally investigate or prosecute any alcohol or drug abuse patient.[facility] CenterIn the event this information is protected by the Federal Confidentiality of Alcohol and Drug Abuse Patient Records regulations: The Federal rules restrict any use of the information to criminally investigate or prosecute any alcohol or drug abuse patient.[facility] CenterIn the event this information is protected by the Federal Confidentiality of Alcohol and Drug Abuse Patient Records regulations: The Federal rules restrict any use of the information to criminally investigate or prosecute any alcohol or drug abuse patient.[facility] CenterIn the event this information is protected by the Federal Confidentiality of Alcohol and Drug Abuse Patient Records regulations: The Federal rules restrict any use of the information to criminally investigate or prosecute any alcohol or drug abuse patient.[facility] CenterIn the event this information is protected by the Federal Confidentiality of Alcohol and Drug Abuse Patient Records regulations: The Federal rules restrict any use of the information to criminally investigate or prosecute any alcohol or drug abuse patient.[facility] CenterIn the event this information is protected by the Federal Confidentiality of Alcohol and Drug Abuse Patient Records regulations: The Federal rules restrict any use of the information to criminally investigate or prosecute any alcohol or drug abuse patient.[facility] Reason for Visit (unrecogniz ed section and [...] ABDOMEN W/O & W/CONTRAST MATERIAL Alissa Lackey, PEDIATRIC REGISTERED NURSE.BUSINESS CONSULTANT [address] [place] [address] Mr Imaging Referral ID Status Reason Start Date Expiration Date Visits Requested Visits Authorized [id number] Authorized Auto-Generat ed Referral 12/04/2021 01/03/2023 1 1 Reason Comments Established Patient Reason Comments 01/28/2022 Reason Comments Patient Update Reason Comments Medication Problem Reason Onset Date Comments Opened In Error 02/17/2022 Specialty Diagnoses / Procedures Referred By Joni t Referred To Contact CT IMAGING Diagnoses Renal lesion Procedures CT KIDNEY WO/W IVCON CT ABDOMEN W & W/O CONTRAST Alissa Lackey, PEDIATRIC REGISTERED NURSE.BUSINESS CONSULTANT [address] [place] [address] Ct Imaging Referral ID Status Reason Start Date Expiration Date V isits Requested Visits Authorized [id number] Closed Auto-Generate d Referral 11/27/2021 12/27/2022 1 1 Care Teams (unrecognized sec tion and content) Team Status: Active Member Role Status Dates Micheal Gutiérrez MD Primary Care Provider Active Team Status: Active Member Role Status Dates Micheal Gutiérrez MD Primary Care Provider Active Shukri Francisco MD Emergency Provider Active Jean-Pierre Otero DO Admit Provider, Attending Provider 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 Specialty Start Date End Date Micheal Gutiérrez MD [address] [place] [address] PCP - General Family Practice 11/10/21 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 Specialty Start Date End Date Micheal Gutiérrez MD [address] [place] [address] PCP - General Family Practice 11/10/21 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 Specialty Start Date End Date Micheal Gutiérrez MD [address] [place] [id number] PCP - General Family Practice 11/10/21 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 Specialty Start Date End Date Micheal Gutiérrez MD [address] [place] [id number] PCP - General Family Practice 11/10/21 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 Specialty Start Date End Date Micheal Gutiérrez MD [address] [id number] PCP - General Family Practice 11/10/21 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 Specialty Start Date End Date Micheal Gutiérrez MD [address] [id number] PCP - General Family Practice 11/10/21 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 Specialty Start Date End Date Micheal Gutiérrez MD [address] [id number] PCP - General Family Practice 11/10/21 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 Specialty Start Date End Date Micheal Gutiérrez MD [address] [id number] PCP - General Family Practice 11/10/21 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 Specialty Start Date End Date Micheal Gutiérrez MD [address] [place] [address] PCP - General Family Practice 11/10/21 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 Specialty Start Date End Date Micheal Gutiérrez MD [address] [place] [address] PCP - General Family Practice 11/10/21 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 Specialty Start Date End Date Micheal Gutiérrez MD [address] [place] [address] PCP - General Family Practice 11/10/21 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 Specialty Start Date End Date Micheal Gutiérrez MD [address] [id number] PCP - General Family Practice 11/10/21 Team Status: Inactive Member Role Status Dates Micheal Gutiérrez MD Primary Care Provider Active Dino Guzman MD Attending Provider 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 Specialty Start Date End Date Micheal Gutiérrez MD [address] [id number] PCP - General Family Practice 11/10/21 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 Specialty Start Date End Date Micheal Gutiérrez MD [address] [id number] PCP - General Family Practice 11/10/21 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 Specialty Start Date End Date Micheal Gutiérrez MD [address] [id number] PCP - General Family Medicine 11/10/21 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 Specialty Start Date End Date Micheal Gutiérrez MD [address] [place] [address] PCP - General Family Medicine 11/10/21 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 Specialty Start Date End Date Micheal [...] BE BASED ON THE PRIMARY CLINICAL RECORDS. [facility]. provides no warranty or guarantee of the accuracy or completeness of information in this document.
[2023-05-22 22:18] VITALS: BP 158/75; PULSE 67; RESP 18; TEMP 36.3; O2SAT 91
--- OUTSIDE RECORDS SUMMARY | 2023-05-22 22:20 | XMS_ITS | CCD ---
Author Name Unknown Address [address] [place] [address] Organization [facility] Care Team Providers Care Research Food Technologist Name Role Phone PHYSICIAN, DEFAULT Unavailable Unavailable PHYSICIAN, DEFAULT Unavailable Unavailable Micheal Gutiérrez Unavailable Unavailable Unavailable Micheal Gutiérrez MD Primary Care Provider [phone] Micheal Gutiérrez MD Primary Care Provider [phone] Unavailable Unavailable MD Micheal Gutiérrez Primary Care Provider [phone] MD Bret Guzmanpr Attending Provider Micheal Gutiérrez MD Primary Care Provider [phone] Micheal Gutiérrez MD Primary Care Provider [phone] MICHEAL GUTIÉRREZ Primary Care Unavailable IDRIS [...] Unavailable HOY ., DR BURTON Consulting Unavailable [place], DR YENIFER Puckett Consulting Unavailable HOY ., [...] Unavailable MD Micheal Gutiérrez Primary Care Provider [phone] MD Shukri Francisco Emergency Provider DO Jean-Pierre Otero Admit Provider DO Jean-Pierre Otero Attending Provider [phone] Micheal Gutiérrez Primary Care Unavailable Abushawer, Osama [...] Unavailable Micheal Gutiérrez MD Primary Care Provider [phone] Lauro Collins Attending Unava robb Collins, Dr. Lauro Tagn Referring Unava ilrex Gutiérrez, Dr. Micheal Floyd [...] (14 sources) diphenhydrAMINE; Translations: [diphenhydrAMINE] Drug Allergy [facility] y 250 DO Work Phone: (20 sources) Ticagrelor; Translations: [Brilinta TABS] Drug Allergy 2 Shortness of Breath [facility] (9 sources) Angiotensin Converting Enzyme (Jennifer) Inhibitors; Translations: [JENNIFER Inhibitors] Allergy to drug (finding) Hypotension [facility] y 250 DO Work Phone: (1 source) Ticagrelor; Translations: [TICAGRELOR] Drug Allergy 2 [facility] (5 sources) Aspirin; Translations: [Aspirin TABS] Drug Allergy Other [facility] y 250 DO Work Phone: (1 source) diphenhydrAMINE Drug Allergy 3 [facility] Repository Medications Current Medications Medication Drug Class(es) [...] Comment on above: Take 1 capsule by [facility] twice daily for 7 days. spironolactone [...] Comment on above: Take 1 tablet by [facility] twice daily. atorvastatin 20 mg oral [...] 90 mL pre and post bolus feeds 06747 mL 02/03/2022 Active Comment on above: 250 [...] Comment on above: Take 1 tablet by uslly th twice daily. 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 (414.01) (I25.10) History of PTCA (V45.82) (Z98.61) Ischemic cardiomyopathy (414.8) (I25.5) Paroxysmal atrial fibrillation (427.31) (I48.0) PVD (peripheral vascular disease) (443.9) (I73.9) Hyperlipidemia (272.4) (E78.5) Diabetes mellitus (250.00) (E11.9) Current smoker (305.1) (F17.200) 1 ppd History of throat cancer (V10.02) (Z85.819) COPD (chronic obstructive pulmonary disease) (496) (J44.9) History of SD (myocardial infarction) (412) (I25.2) History of MRSA infection (V12.04) (Z86.14) Orders Body mass index (BMI) of 19.9 or less in adult Healthy Weight Tips; Status:Complete - Retrospective Authorization; Done: [id number] CHF (NYHA class II, ACC/AHA stage C), Health Maintenance, History of SD (myocardial infarction), Ischemic cardiomyopathy Renew: dilTIAZem HCl ER 60 MG Oral Capsule Extended Release 12 Hour; TAKE 0.5 CAPSULE Twice daily CHF (NYHA class II, ACC/AHA stage C), History of SD (myocardial infarction), History of PTCA Renew: Eliquis 5 MG Oral Tablet; Take 1 tablet twice daily CHF (NYHA class II, ACC/AHA stage C), Paroxysmal atrial fibrillation Renew: Carvedilol 12.5 MG Oral Tablet; TAKE 1/2 TABLET TWICE DAILY 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 He has chronic dyspnea from a symptomatic standpoint; we will certified addiction counselor him on tobacco cessation for 3 [...] Percutaneous endoscopic gastrostomy tube insertion History of HAM SAWYER femoral-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 Cardizem SR 60 MG CP121/2 tab twice daily Carvedilol 12.5 MG Oral TabletTAKE 1/2 TABLET TWICE DAILY. Constulose [id number] in moring Eliquis 5 MG Oral TabletTake [...] 09/11/2021 9:51 (more content not included)... Normal [employer] Tobacco Screening.on 023 Fall risk assessment b) One or more fall s in the last year [facility] [employer] 250 DO Work Phone: Tobacco use status [facility] a) Yes [facility] [employer] 250 DO Work Phone: Tobacco Screening. Yes [facility] Heart-Sandu marika 250 DO Work Phone: Lab Reportson 01-01-2023 Lab Reports [id number]#1.00CD:127 [facility] Lab Reports [id number]#1.00CD:127 [facility] Lab Reports [id number]#1.00CD:127 [facility] Lab Reports [id number]#1.00CD:127 [facility] Lab Reports [id number]#1.00CD:127 [facility] Lab Reports [id number]#1.00CD:127 [facility] Lab Reports [id number]#1.00CD:127 [facility] Lab Reports [id number]#1.00CD:127 [facility] Lab Reports [id number]#1.00CD:127 [facility] Lab Reports [id number]#1.00CD:127 [facility] Lab Reportson 12-21-2022 Lab Reports [id number]#1.00CD:127 [facility] Lab Reports [id number]#1.00CD:127 [facility] Lab Reports [id number]#1.00CD:127 [facility] Lab Reports [id number]#1.00CD:127 Normal [facility] Lab Reports [id number]#1.00CD:127 Normal [facility] Lab Reports [id number]#1.00CD:127 Normal [facility] Lab Reports [id number]#1.00CD:127 Normal [facility] Lab Reports [id number]#1.00CD:127 [facility] Lab Reports [id number]#1.00CD:127 Normal [facility] Lab Reports [id number]#1.00CD:127 Normal [facility] Lab Reports [id number]#1.00CD:127 Normal [facility] Basic Metabolic Panelon 11-21 Anion gap [Moles/Vol] Not performed Normal 6.0-15.0 [facility] Comment on above: Performed By: #### M G, TSH3, CBC, DIFF CBC, PT, PTT, CMP #### [facility] [address] [place] [id number] [place] Calcium [Mass/Vol] 8.7 mg/dL Normal 8.6-10.3 [facility] Comment on above: Performed By: #### M G, TSH3, CBC, DIFF CBC, PT, PTT, CMP #### [facility] [address] [place] [address] [place] Chloride [Moles/Vol] 102 mmol/L Normal 98-107 [facility] Comment on above: Performed By: #### M G, TSH3, CBC, DIFF CBC, PT, PTT, CMP #### [facility] [address] [place] [address] [place] CO2 [Moles/Vol] 27.9 mmol/L Normal 21.0-31.0 [facility] Comment on above: Performed By: #### M G, TSH3, CBC, DIFF CBC, PT, PTT, CMP #### [facility] [address] Creatinine [Mass/Vol] 0.93 mg/dL Normal 0.70-1.[address] [facility] Comment on above: Performed By: #### M G, TSH3, CBC, DIFF CBC, PT, PTT, CMP #### [facility] [address] [place] [address] [place] Creatinine Clr Calc Pharmacy 55.82 [facility] Comment on above: Performed By: #### M G, TSH3, CBC, DIFF CBC, PT, PTT, CMP #### [facility] [address] [place] [address] [place] GFR/1.73 sq M.predicted MDRD (S/P/Bld) [Vol rate/Area] mL/min/{1.73_m2} [facility] Comment on above: Performed By: #### M G, TSH3, CBC, DIFF CBC, PT, PTT, CMP #### [facility] [address] Glucose [Mass/Vol] 173 mg/dL Significant change up 70-100 [facility] Comment on above: Result Comment: [facility] Glucose Reference Range is dependent on time and content of last meal. Glucose of more than 200 mg/dL in a nonstressed, ambulatory subject supports the diagnosis of Diabetes Mellitus. ADA recommended reference range Performed By: #### M G, TSH3, CBC, DIFF CBC, PT, PTT, CMP #### [facility] [address] Potassium Normal 3.5-5.1 [facility] Comment on above: Result Comment: Spec imen hemolyzed, redraw requested Performed By: #### M G, TSH3, CBC, DIFF CBC, PT, PTT, CMP #### [facility] [address] Sodium [Moles/Vol] 136 mmol/L Normal 136-145 [facility] Comment on above: Performed By: #### M G, TSH3, CBC, DIFF CBC, PT, PTT, CMP #### [facility] [address] [place] [address] Urea nitrogen [Mass/Vol] 47 mg/dL High 7-25 [facility] Comment on above: Performed By: #### M G, TSH3, CBC, DIFF CBC, PT, PTT, CMP #### [facility] [address] [place] [address] [place] Diff and CBCon 11-30-2022 Basophils/100 WBC (Bld) 0 % Normal 0-2 [facility] Comment on above: Performed By: #### M G, TSH3, CBC, DIFF CBC, PT, PTT, CMP #### [address] Eosinophils/100 WBC (Bld) 0 % Low 1-3 [facility] Comment on above: Performed By: #### M G, TSH3, CBC, DIFF CBC, PT, PTT, CMP #### [address] Erythrocyte distribution width (RBC) [Ratio] 13.4 % Normal 12.0-14.8 [facility] Comment on above: Performed By: #### M G, TSH3, CBC, DIFF CBC, PT, PTT, CMP #### [address] Hematocrit (Bld) [Volume fraction] 33.4 % Low 38.8-50.0 [facility] Comment on above: Performed By: #### M G, TSH3, CBC, DIFF CBC, PT, PTT, CMP #### [address] Hemoglobin (Bld) [Mass/Vol] 11.3 g/dL Low 13.0-17.0 [facility] Comment on above: Performed By: #### M G, TSH3, CBC, DIFF CBC, PT, PTT, CMP #### [place] [address] [place] Lymphocytes/100 WBC (Bld) 13 % Low 18-42 [facility] Comment on above: Performed By: #### M G, TSH3, CBC, DIFF CBC, PT, PTT, CMP #### [address] MCH (RBC) [Entitic mass] 31.2 pg Normal 27.5-35.2 [facility] Comment on above: Performed By: #### M G, TSH3, CBC, DIFF CBC, PT, PTT, CMP #### [address] MCV (RBC) [Entitic vol] 92.4 fL Normal 83.5-101 [facility] Comment on above: Performed By: #### M G, TSH3, CBC, DIFF CBC, PT, PTT, CMP #### [address] Mean Corpuscular HGB Conc 33.7 g/dL Normal 32.5-35.6 [facility] Comment on above: Performed By: #### M G, TSH3, CBC, DIFF CBC, PT, PTT, CMP #### [address] Microcytosis Slight Normal [facility] Comment on above: Performed By: #### M G, TSH3, CBC, DIFF CBC, PT, PTT, CMP #### [address] Monocytes/100 WBC (Bld) 5 % Normal 2-11 [facility] Comment on above: Performed By: #### M G, TSH3, CBC, DIFF CBC, PT, PTT, CMP #### [address] Ovalocytes Slight Normal [facility] Comment on above: Performed By: #### M G, TSH3, CBC, DIFF CBC, PT, PTT, CMP #### [address] Platelet Estimate Normal Normal Normal [facility] Comment on above: Result Comment: --- 11/30/22 0728 --- Plt Est previously reported as: Decreased Performed By: #### M G, TSH3, CBC, DIFF CBC, PT, PTT, CMP #### [address] Platelet mean volume (Bld) [Entitic vol] 8.7 fL Normal 6.6-10.1 [facility] Comment on above: Result Comment: PERF ORMED BY: [place] [address] PATHOLOGIST CUSTOMER EXPERIENCE INTERN TRINA GARCIA M.D. Performed By: #### M G, TSH3, CBC, DIFF CBC, PT, PTT, CMP #### [address] Platelet Morphology Normal Normal Normal [facility] Comment on above: Result Comment: PERF ORMED BY: [place] [address] PATHOLOGIST CUSTOMER EXPERIENCE INTERN TRINA GARCIA M.D. Performed By: #### M G, TSH3, CBC, DIFF CBC, PT, PTT, CMP #### [address] Platelets (Bld) [#/Vol] 216 10*3/uL Normal 150-450 [facility] Comment on above: Performed By: #### M G, TSH3, CBC, DIFF CBC, PT, PTT, CMP #### [address] RBC (Bld) [#/Vol] 3.61 10*6/uL Low 3.90-5.60 [facility] Comment on above: Performed By: #### M G, TSH3, CBC, DIFF CBC, PT, PTT, CMP #### [address] Schistocytes Slight Normal [facility] Comment on above: Performed By: #### M G, TSH3, CBC, DIFF CBC, PT, PTT, CMP #### [address] Segmented neutrophils/100 WBC (Bld) 82 % High 50-70 [facility] Comment on above: Performed By: #### M G, TSH3, CBC, DIFF CBC, PT, PTT, CMP #### [address] WBC (Bld) [#/Vol] 13.3 10*3/uL High 4.1-10.5 [facility] Comment on above: Performed By: #### M G, TSH3, CBC, DIFF CBC, PT, PTT, CMP #### [facility] [address] Magnesiumon 11-30-2022 Magnesium [Mass/Vol] 2.1 mg/dL Normal 1.9-2.7 [facility] Comment on above: Result Comment: PERF ORMED BY: [place] [address] PATHOLOGIST CUSTOMER EXPERIENCE INTERN TRINA GARCIA M.D. Performed By: #### M G, TSH3, CBC, DIFF CBC, PT, PTT, CMP #### [address] Redraw Potassiumon Potassium [Moles/Vol] 4.5 mmol/L Normal 3.5-5.[address] [facility] Comment on above: Order Comment: SPECI MEN HEMOLYZED, NOTIFIED HERMELINDA Result Comment: PERF ORMED BY: [place] [address] PATHOLOGIST CUSTOMER EXPERIENCE INTERN TRINA GARCIA M.D. Performed By: #### M G, TSH3, CBC, DIFF CBC, PT, PTT, CMP #### [address] B-Type Natriuretic Peptideon 11-29-2022 Natriuretic peptide B (Bld) [Mass/Vol] 213.0 pg/mL High 5-100 [facility] Comment on above: Result Comment: PERF ORMED BY: [place] [address] PATHOLOGIST CUSTOMER EXPERIENCE INTERN TRINA GARCIA M.D. Performed By: #### M G, TSH3, CBC, DIFF CBC, PT, PTT, CMP #### [facility] [address] Basic Metabolic Panelon 07-0 Anion gap [Moles/Vol] 9.3 mmol/L Normal 6.0-15.[address] [facility] Comment on above: Performed By: #### M G, TSH3, CBC, DIFF CBC, PT, PTT, CMP #### [facility] [address] Calcium [Mass/Vol] 8.9 mg/dL Normal 8.6-10.3 [facility] Comment on above: Performed By: #### M G, TSH3, CBC, DIFF CBC, PT, PTT, CMP #### [facility] [address] Chloride [Moles/Vol] 103 mmol/L Normal 98-107 [facility] Comment on above: Performed By: #### M G, TSH3, CBC, DIFF CBC, PT, PTT, CMP #### [facility] [address] CO2 [Moles/Vol] 28.1 mmol/L Normal 21.0-31.0 [facility] Comment on above: Performed By: #### M G, TSH3, CBC, DIFF CBC, PT, PTT, CMP #### [facility] [address] Creatinine [Mass/Vol] 0.91 mg/dL Normal 0.70-1.[address] [facility] Comment on above: Performed By: #### M G, TSH3, CBC, DIFF CBC, PT, PTT, CMP #### [facility] [address] Creatinine Clr Calc Pharmacy 57.05 [facility] Comment on above: Performed By: #### M G, TSH3, CBC, DIFF CBC, PT, PTT, CMP #### [facility] [address] [place] [address] [place] GFR/1.73 sq M.predicted MDRD (S/P/Bld) [Vol rate/Area] mL/min/{1.73_m2} [facility] Comment on above: Performed By: #### M G, TSH3, CBC, DIFF CBC, PT, PTT, CMP #### [address] Glucose [Mass/Vol] 293 mg/dL High 70-100 [facility] Comment on above: Result Comment: [place] Glucose Reference Range is dependent on time and content of last meal. Glucose of more than 200 mg/dL in a nonstressed, ambulatory subject supports the diagnosis of Diabetes Mellitus. ADA recommended reference range Performed By: #### M G, TSH3, CBC, DIFF CBC, PT, PTT, CMP #### [address] Potassium [Moles/Vol] 4.4 mmol/L Normal 3.5-5.[address] [facility] Comment on above: Performed By: #### M G, TSH3, CBC, DIFF CBC, PT, PTT, CMP #### [address] Sodium [Moles/Vol] 136 mmol/L Normal 136-145 [facility] Comment on above: Performed By: #### M G, TSH3, CBC, DIFF CBC, PT, PTT, CMP #### [address] Urea nitrogen [Mass/Vol] 41 mg/dL High 7-25 [facility] Comment on above: Performed By: #### M G, TSH3, CBC, DIFF CBC, PT, PTT, CMP #### [address] Complete Blood Count Auto Di ffon 11-29-2022 Basophils (Bld) [#/Vol] 0.0 10*3/uL Normal 0.0-0.2 [facility] Comment on above: Result Comment: PERF ORMED BY: [place] [address] PATHOLOGIST CUSTOMER EXPERIENCE INTERN TRINA GARCIA M.D. Performed By: #### M G, TSH3, CBC, DIFF CBC, PT, PTT, CMP #### [address] Basophils/100 WBC (Bld) 0.1 % Normal . [facility] Comment on above: Performed By: #### M G, TSH3, CBC, DIFF CBC, PT, PTT, CMP #### [address] Eosinophils (Bld) [#/Vol] 0.0 10*3/uL Normal 0.0-0.45 [facility] Comment on above: Performed By: #### M G, TSH3, CBC, DIFF CBC, PT, PTT, CMP #### [address] Eosinophils/100 WBC (Bld) 0.0 % Normal . [facility] Comment on above: Performed By: #### M G, TSH3, CBC, DIFF CBC, PT, PTT, CMP #### [address] Erythrocyte distribution width (RBC) [Ratio] 13.3 % Normal 12.0-14.8 [facility] Comment on above: Performed By: #### M G, TSH3, CBC, DIFF CBC, PT, PTT, CMP #### [address] Hematocrit (Bld) [Volume fraction] 34.5 % Low 38.8-50.0 [facility] Comment on above: Performed By: #### M G, TSH3, CBC, DIFF CBC, PT, PTT, CMP #### [address] Hemoglobin (Bld) [Mass/Vol] 11.6 g/dL Low 13.0-17.0 [facility] Comment on above: Performed By: #### M G, TSH3, CBC, DIFF CBC, PT, PTT, CMP #### [address] Lymphocytes (Bld) [#/Vol] 0.6 10*3/uL Low 1.00-4.8 [facility] Comment on above: Performed By: #### M G, TSH3, CBC, DIFF CBC, PT, PTT, CMP #### [address] Lymphocytes/100 WBC (Bld) 4.1 % Normal . [facility] Comment on above: Performed By: #### M G, TSH3, CBC, DIFF CBC, PT, PTT, CMP #### [address] MCH (RBC) [Entitic mass] 31.0 pg Normal 27.5-35.2 [facility] Comment on above: Performed By: #### M G, TSH3, CBC, DIFF CBC, PT, PTT, CMP #### [address] MCV (RBC) [Entitic vol] 92.6 fL Normal 83.5-101 [facility] Comment on above: Performed By: #### M G, TSH3, CBC, DIFF CBC, PT, PTT, CMP #### [address] Mean Corpuscular HGB Conc 33.5 g/dL Normal 32.5-35.6 [facility] Comment on above: Performed By: #### M G, TSH3, CBC, DIFF CBC, PT, PTT, CMP #### [address] Monocytes (Bld) [#/Vol] 0.7 10*3/uL Normal 0.0-0.8 [facility] Comment on above: Performed By: #### M G, TSH3, CBC, DIFF CBC, PT, PTT, CMP #### [address] Monocytes/100 WBC (Bld) 4.8 % Normal . [facility] Comment on above: Performed By: #### M G, TSH3, CBC, DIFF CBC, PT, PTT, CMP #### [address] Neutrophils (Bld) [#/Vol] 13.2 10*3/uL High 1.8-7.7 [facility] Comment on above: Performed By: #### M G, TSH3, CBC, DIFF CBC, PT, PTT, CMP #### [address] Neutrophils/100 WBC (Bld) 91.0 % Normal . [facility] Comment on above: Performed By: #### M G, TSH3, CBC, DIFF CBC, PT, PTT, CMP #### [address] NRBC% 0.0 /100{WBC} Normal 0-0.5 [facility] Comment on above: Performed By: #### M G, TSH3, CBC, DIFF CBC, PT, PTT, CMP #### [address] Platelet mean volume (Bld) [Entitic vol] 8.4 fL Normal 6.6-10.1 [facility] Comment on above: Performed By: #### M G, TSH3, CBC, DIFF CBC, PT, PTT, CMP #### [address] Platelets (Bld) [#/Vol] 219 10*3/uL Normal 150-450 [facility] Comment on above: Performed By: #### M G, TSH3, CBC, DIFF CBC, PT, PTT, CMP #### [address] RBC (Bld) [#/Vol] 3.72 10*6/uL Low 3.90-5.60 [facility] Comment on above: Performed By: #### M G, TSH3, CBC, DIFF CBC, PT, PTT, CMP #### [address] WBC (Bld) [#/Vol] 14.5 10*3/uL High 4.1-10.5 [facility] Comment on above: Performed By: #### M G, TSH3, CBC, DIFF CBC, PT, PTT, CMP #### [address] Magnesiumon 11-29-2022 Magnesium [Mass/Vol] 2.0 mg/dL Normal 1.9-2.7 [facility] Comment on above: Result Comment: PERF ORMED BY: [place] [id number] PATHOLOGIST CUSTOMER EXPERIENCE INTERN TRINA GARCIA M.D. Performed By: #### M G, TSH3, CBC, DIFF CBC, PT, PTT, CMP #### [place] [id number] [facility] Glucose Poct Glucometerson 0 11-28-2022 Commemt1 Glu2: Cleaned Meter Normal [facility] Comment on above: Result Comment: PERF ORMED BY: [place] [address] PATHOLOGIST CUSTOMER EXPERIENCE INTERN TRINA GARCIA M.D. Performed By: #### M G, TSH3, CBC, DIFF CBC, PT, PTT, CMP #### [place] [id number] [facility] Glucose [Mass/Vol] 392 mg/dL Normal [facility] Comment on above: Result Comment: [facility] Glucose Reference Range is dependent on time and content of last meal. Glucose of more than 200 mg/dL in a nonstressed, ambulatory subject supports the diagnosis of Diabetes Mellitus. Performed By: #### M G, TSH3, CBC, DIFF CBC, PT, PTT, CMP #### [address] [address] [facility] Glucose [Mass/Vol] 222 mg/dL Normal [facility] Comment on above: Result Comment: [facility] Glucose Reference Range is dependent on time and content of last meal. Glucose of more than 200 mg/dL in a nonstressed, ambulatory subject supports the diagnosis of Diabetes Mellitus. PERFORMED BY: [place] [id number] PATHOLOGIST CUSTOMER EXPERIENCE INTERN TRINA GARCIA M.D. Performed By: #### M G, TSH3, CBC, DIFF CBC, PT, PTT, CMP #### [place] [id number] [facility] Glucose [Mass/Vol] 322 mg/dL Normal [facility] Comment on above: Result Comment: [facility] Glucose Reference Range is dependent on time and content of last meal. Glucose of more than 200 mg/dL in a nonstressed, ambulatory subject supports the diagnosis of Diabetes Mellitus. PERFORMED BY: [place] [address] PATHOLOGIST CUSTOMER EXPERIENCE INTERN TRINA GARCIA M.D. Performed By: #### M G, TSH3, CBC, DIFF CBC, PT, PTT, CMP #### [address] Basic Metabolic Panelon 070 Anion gap [Moles/Vol] 8.6 mmol/L Normal 6.0-15.[address] [facility] Comment on above: Performed By: #### M G, TSH3, CBC, DIFF CBC, PT, PTT, CMP #### [address] Calcium [Mass/Vol] 8.3 mg/dL Low 8.6-10.3 [facility] Comment on above: Performed By: #### M G, TSH3, CBC, DIFF CBC, PT, PTT, CMP #### [address] Chloride [Moles/Vol] 105 mmol/L Normal 98-107 [facility] Comment on above: Performed By: #### M G, TSH3, CBC, DIFF CBC, PT, PTT, CMP #### [address] CO2 [Moles/Vol] 26.9 mmol/L Normal 21.0-31.0 [facility] Comment on above: Performed By: #### M G, TSH3, CBC, DIFF CBC, PT, PTT, CMP #### [address] Creatinine [Mass/Vol] 1.19 mg/dL Normal 0.70-1.[address] [facility] Comment on above: Performed By: #### M G, TSH3, CBC, DIFF CBC, PT, PTT, CMP #### [facility] [address] [place] [address] [place] Creatinine Clr Calc Pharmacy 42.72 [facility] Comment on above: Result Comment: PERF ORMED BY: [place] [address] PATHOLOGIST CUSTOMER EXPERIENCE INTERN TRINA GARCIA M.D. Performed By: #### M G, TSH3, CBC, DIFF CBC, PT, PTT, CMP #### [facility] [address] GFR/1.73 sq M.predicted MDRD (S/P/Bld) [Vol rate/Area] mL/min/{1.73_m2} [facility] Comment on above: Performed By: #### M G, TSH3, CBC, DIFF CBC, PT, PTT, CMP #### [facility] [address] Glucose [Mass/Vol] 102 mg/dL High 70-100 [facility] Comment on above: Result Comment: [facility] Glucose Reference Range is dependent on time and content of last meal. Glucose of more than 200 mg/dL in a nonstressed, ambulatory subject supports the diagnosis of Diabetes Mellitus. ADA recommended reference range Performed By: #### M G, TSH3, CBC, DIFF CBC, PT, PTT, CMP #### [facility] [address] Potassium [Moles/Vol] 4.5 mmol/L Normal 3.5-5.[address] [facility] Comment on above: Performed By: #### M G, TSH3, CBC, DIFF CBC, PT, PTT, CMP #### [facility] [address] [place] [address] [place] Sodium [Moles/Vol] 136 mmol/L Significant change down 136-145 [facility] Comment on above: Performed By: #### M G, TSH3, CBC, DIFF CBC, PT, PTT, CMP #### [facility] [address] [place] [address] [place] Urea nitrogen [Mass/Vol] 50 mg/dL High 7-25 [facility] Comment on above: Performed By: #### M G, TSH3, CBC, DIFF CBC, PT, PTT, CMP #### [address] Complete Blood Count Auto Di ffon 11-27-2022 Basophils (Bld) [#/Vol] 0.0 10*3/uL Normal 0.0-0.2 [facility] Comment on above: Result Comment: PERF ORMED BY: [place] [address] PATHOLOGIST CUSTOMER EXPERIENCE INTERN TRINA GARCIA M.D. Performed By: #### M G, TSH3, CBC, DIFF CBC, PT, PTT, CMP #### [address] Basophils/100 WBC (Bld) 0.1 % Normal . [facility] Comment on above: Performed By: #### M G, TSH3, CBC, DIFF CBC, PT, PTT, CMP #### [address] Eosinophils (Bld) [#/Vol] 0.0 10*3/uL Normal 0.0-0.45 [facility] Comment on above: Performed By: #### M G, TSH3, CBC, DIFF CBC, PT, PTT, CMP #### [address] Eosinophils/100 WBC (Bld) 0.0 % Normal . [facility] Comment on above: Performed By: #### M G, TSH3, CBC, DIFF CBC, PT, PTT, CMP #### [address] Erythrocyte distribution width (RBC) [Ratio] 13.7 % Normal 12.0-14.8 [facility] Comment on above: Performed By: #### M G, TSH3, CBC, DIFF CBC, PT, PTT, CMP #### [address] Hematocrit (Bld) [Volume fraction] 30.6 % Low 38.8-50.0 [facility] Comment on above: Performed By: #### M G, TSH3, CBC, DIFF CBC, PT, PTT, CMP #### [address] Hemoglobin (Bld) [Mass/Vol] 10.4 g/dL Low 13.0-17.0 [facility] Comment on above: Performed By: #### M G, TSH3, CBC, DIFF CBC, PT, PTT, CMP #### [address] Lymphocytes (Bld) [#/Vol] 0.7 10*3/uL Low 1.00-4.8 [facility] Comment on above: Performed By: #### M G, TSH3, CBC, DIFF CBC, PT, PTT, CMP #### [address] Lymphocytes/100 WBC (Bld) 4.1 % Normal . [facility] Comment on above: Performed By: #### M G, TSH3, CBC, DIFF CBC, PT, PTT, CMP #### [address] MCH (RBC) [Entitic mass] 31.6 pg Normal 27.5-35.2 [facility] Comment on above: Performed By: #### M G, TSH3, CBC, DIFF CBC, PT, PTT, CMP #### [address] MCV (RBC) [Entitic vol] 93.4 fL Normal 83.5-101 [facility] Comment on above: Performed By: #### M G, TSH3, CBC, DIFF CBC, PT, PTT, CMP #### [address] Mean Corpuscular HGB Conc 33.9 g/dL Normal 32.5-35.6 [facility] Comment on above: Performed By: #### M G, TSH3, CBC, DIFF CBC, PT, PTT, CMP #### [address] Monocytes (Bld) [#/Vol] 0.4 10*3/uL Normal 0.0-0.8 [facility] Comment on above: Performed By: #### M G, TSH3, CBC, DIFF CBC, PT, PTT, CMP #### [address] Monocytes/100 WBC (Bld) 2.0 % Normal . [facility] Comment on above: Performed By: #### M G, TSH3, CBC, DIFF CBC, PT, PTT, CMP #### [address] Neutrophils (Bld) [#/Vol] 16.8 10*3/uL High 1.8-7.7 [facility] Comment on above: Performed By: #### M G, TSH3, CBC, DIFF CBC, PT, PTT, CMP #### [address] Neutrophils/100 WBC (Bld) 93.8 % Normal . [facility] Comment on above: Performed By: #### M G, TSH3, CBC, DIFF CBC, PT, PTT, CMP #### [address] NRBC% 0.2 /100{WBC} Normal 0-0.5 [facility] Comment on above: Performed By: #### M G, TSH3, CBC, DIFF CBC, PT, PTT, CMP #### [address] Platelet mean volume (Bld) [Entitic vol] 8.2 fL Normal 6.6-10.1 [facility] Comment on above: Performed By: #### M G, TSH3, CBC, DIFF CBC, PT, PTT, CMP #### [place] [address] [place] Platelets (Bld) [#/Vol] 239 10*3/uL Normal 150-450 [facility] Comment on above: Performed By: #### M G, TSH3, CBC, DIFF CBC, PT, PTT, CMP #### [place] [address] [place] RBC (Bld) [#/Vol] 3.28 10*6/uL Low 3.90-5.60 [facility] Comment on above: Performed By: #### M G, TSH3, CBC, DIFF CBC, PT, PTT, CMP #### [facility] [address] [place] [address] [place] WBC (Bld) [#/Vol] 17.9 10*3/uL High 4.1-10.5 [facility] Comment on above: Performed By: #### M G, TSH3, CBC, DIFF CBC, PT, PTT, CMP #### [facility] [address] [place] [address] [facility] ECG 12 lead ECGon 11-27-2022 ECG 12 lead ECG [facility] Main [place] [address] [place] [address] Electrocardiograph Report Signed Patient: Franki Hernandez MR#: [id number] : 1940 Acct:[id number] Age/Sex: 82 / M ADM Date: 11/25/22 Loc: Room: [address] [place] [address] Type: ADM IN Attending Dr: Nelida Aquino [...] By David Cerda DO 11/27 1256 Normal [facility] Glucose Poct Glucometerson 0 11-27-2022 Glucose [Mass/Vol] 199 mg/dL Normal [facility] Comment on above: Result Comment: [place] Glucose Reference Range is dependent on time and content of last meal. Glucose of more than 200 mg/dL in a nonstressed, ambulatory subject supports the diagnosis of Diabetes Mellitus. PERFORMED BY: [address] [place] [address] PATHOLOGIST CUSTOMER EXPERIENCE INTERN TRINA GARCIA M.D. Performed By: #### M G, TSH3, CBC, DIFF CBC, PT, PTT, CMP #### [place] [address] [place] Commemt1 [facility] Comment on above: Result Comment: Glu2 : WILL NOTIFY DR/RN Performed By: #### M G, TSH3, CBC, DIFF CBC, PT, PTT, CMP #### [place] [address] [place] Commemt2 Cleaned Meter Normal [facility] Comment on above: Result Comment: PERF ORMED BY: [facility] [address] [place] [address] PATHOLOGIST CUSTOMER EXPERIENCE INTERN TRINA GARCIA M.D. Performed By: #### M G, TSH3, CBC, DIFF CBC, PT, PTT, CMP #### [place] [id number] [place] Glucose [Mass/Vol] 410 mg/dL Off scale high [facility] Comment on above: Result Comment: [place] Glucose Reference Range is dependent on time and content of last meal. Glucose of more than 200 mg/dL in a nonstressed, ambulatory subject supports the diagnosis of Diabetes Mellitus. Performed By: #### M G, TSH3, CBC, DIFF CBC, PT, PTT, CMP #### [facility] [address] [place] [address] [place] Glucose [Mass/Vol] 358 mg/dL Normal [facility] Comment on above: Result Comment: [place] Glucose Reference Range is dependent on time and content of last meal. Glucose of more than 200 mg/dL in a nonstressed, ambulatory subject supports the diagnosis of Diabetes Mellitus. PERFORMED BY: [place] [address] PATHOLOGIST CUSTOMER EXPERIENCE INTERN TRINA GARCIA M.D. Performed By: #### M G, TSH3, CBC, DIFF CBC, PT, PTT, CMP #### [address] A1C with Estimated Average G karol 11-26-2022 Glucose [Mass/Vol] 183 mg/dL Normal [facility] Comment on above: Result Comment: PERF ORMED BY: [place] [address] PATHOLOGIST CUSTOMER EXPERIENCE INTERN TRINA GARCIA M.D. Performed By: #### H S TROP, A1C WTH eA, SCAN CBC #### [address] HbA1c (Bld) [Mass fraction] 8.0 % High 4.3-5.6 [facility] Comment on above: Result Comment: Incr eased risk for diabetes: 5.7 - 6.4 diabetes: >6.4 glycemic control for adults with diabetes: <7.0 Performed By: #### H S TROP, A1C WTH eA, SCAN CBC #### [address] Basic Metabolic Panelon 07 Anion gap [Moles/Vol] 12.0 mmol/L Normal 6.0-15.0 [facility] Comment on above: Performed By: #### M G, TSH3, CBC, DIFF CBC, PT, PTT, CMP #### [place] [address] [place] Calcium [Mass/Vol] 8.3 mg/dL Low 8.6-10.3 [facility] Comment on above: Performed By: #### M G, TSH3, CBC, DIFF CBC, PT, PTT, CMP #### [address] Chloride [Moles/Vol] 108 mmol/L High 98-107 [facility] Comment on above: Performed By: #### M G, TSH3, CBC, DIFF CBC, PT, PTT, CMP #### [facility] [address] CO2 [Moles/Vol] 27.1 mmol/L Normal 21.0-31.0 [facility] Comment on above: Performed By: #### M G, TSH3, CBC, DIFF CBC, PT, PTT, CMP #### [facility] [address] Creatinine [Mass/Vol] 0.99 mg/dL Normal 0.70-1.[address] [facility] Comment on above: Performed By: #### M G, TSH3, CBC, DIFF CBC, PT, PTT, CMP #### [address] Creatinine Clr Calc Pharmacy 47.90 [facility] Comment on above: Performed By: #### M G, TSH3, CBC, DIFF CBC, PT, PTT, CMP #### [address] GFR/1.73 sq M.predicted MDRD (S/P/Bld) [Vol rate/Area] mL/min/{1.73_m2} [facility] Comment on above: Performed By: #### M G, TSH3, CBC, DIFF CBC, PT, PTT, CMP #### [address] Glucose [Mass/Vol] 164 mg/dL Significant change up 70-100 [facility] Comment on above: Result Comment: [place] Glucose Reference Range is dependent on time and content of last meal. Glucose of more than 200 mg/dL in a nonstressed, ambulatory subject supports the diagnosis of Diabetes Mellitus. ADA recommended reference range Performed By: #### M G, TSH3, CBC, DIFF CBC, PT, PTT, CMP #### [address] Potassium [Moles/Vol] 5.1 mmol/L Normal 3.5-5.[address] [facility] Comment on above: Performed By: #### M G, TSH3, CBC, DIFF CBC, PT, PTT, CMP #### [facility] [address] [place] [address] [place] Sodium [Moles/Vol] 142 mmol/L Normal 136-145 [facility] Comment on above: Performed By: #### M G, TSH3, CBC, DIFF CBC, PT, PTT, CMP #### [facility] [address] [place] [address] [place] Urea nitrogen [Mass/Vol] 37 mg/dL High - [facility] Comment on above: Performed By: #### M G, TSH3, CBC, DIFF CBC, PT, PTT, CMP #### [facility] [address] [place] [address] [facility] ECG 12 lead ECGon 11-26-2022 ECG 12 lead ECG [facility] [place] [address] Electrocardiograph Report Signed Patient: Franki Hernandez MR#: [id number] : 1940 Acct:[id number] Age/Sex: 82 / M ADM Date: 11/25/22 Loc: Room: [address] [place] [address] Type: ADM IN Attending Dr: Nelida Aquino [...] decreased BY 69 BPM Confirmed by DAVID CERAD DO ([id number]) on 11/26/2022 1:19:08 PM Referred By: Electronically Signed By:DAVID CERDA DO Transcribed By: MUS Signed By David Cerda DO 11/26 1319 Normal [facility] ECG 12 lead ECG [facility] Main [place] [id number] Electrocardiograph Report Signed Patient: Franki Hernandez MR#: [id number] : 1940 Acct:[id number] Age/Sex: 82 / M ADM Date: 11/25/22 Loc: 3T Room: [address] [place] [address] Type: ADM IN Attending Dr: Nelida Aquino [...] Signed By David Cerda DO 11/27 1255 [facility] ECH echo transthoracicon [facility] echo transthoracic [facility] Main [address] [address] Echocardiogram Signed Patient: Franki Hernandez MR#: [id number] : 1940 Acct:[id number] Age/Sex: 82 / M ADM Date: 11/25/22 Loc: Room: [address] [place] [address] Type: ADM IN Attending Dr: Nelida Aquino MD Ordering Provider: Hermelinda Benitez APRN Date of Service: 11/26/2211/13/499 ECH/ECH echo transthoracic: a-fib rvr, elevated troponin Copies to: Saige Bassett MD, [facility] Hermelinda Benitez, [employer] Weight: 125 lb Performed By: JEANNA Solo [...] 11/26/22 1004 Signed By: Saige Bassett MD, [facility] 11/26/22 1704 [facility] Glucose Poct Glucometerson 0 11-26-2022 Commemt1 [facility] Comment on above: Result Comment: Glu2 : WILL NOTIFY DR/RN PERFORMED BY: [place] [address] PATHOLOGIST CUSTOMER EXPERIENCE INTERN TRINA GARCIA M.D. Performed By: #### M G, TSH3, CBC, DIFF CBC, PT, PTT, CMP #### [address] Glucose [Mass/Vol] 477 mg/dL Off scale high [facility] Comment on above: Result Comment: [place] Glucose Reference Range is dependent on time and content of last meal. Glucose of more than 200 mg/dL in a nonstressed, ambulatory subject supports the diagnosis of Diabetes Mellitus. Performed By: #### M G, TSH3, CBC, DIFF CBC, PT, PTT, CMP #### [address] Glucose [Mass/Vol] 355 mg/dL Normal [facility] Comment on above: Result Comment: [place] Glucose Reference Range is dependent on time and content of last meal. Glucose of more than 200 mg/dL in a nonstressed, ambulatory subject supports the diagnosis of Diabetes Mellitus. PERFORMED BY: [place] [address] PATHOLOGIST CUSTOMER EXPERIENCE INTERN TRINA GARCIA M.D. Performed By: #### M G, TSH3, CBC, DIFF CBC, PT, PTT, CMP #### [place] [address] [place] Glucose [Mass/Vol] 178 mg/dL Normal [facility] Comment on above: Result Comment: [place] Glucose Reference Range is dependent on time and content of last meal. Glucose of more than 200 mg/dL in a nonstressed, ambulatory subject supports the diagnosis of Diabetes Mellitus. PERFORMED BY: [place] [address] PATHOLOGIST CUSTOMER EXPERIENCE INTERN TRINA GARCIA M.D. Performed By: #### M G, TSH3, CBC, DIFF CBC, PT, PTT, CMP #### [place] [address] [place] Glucose [Mass/Vol] 205 mg/dL Normal [facility] Comment on above: Result Comment: [facility] Glucose Reference Range is dependent on time and content of last meal. Glucose of more than 200 mg/dL in a nonstressed, ambulatory subject supports the diagnosis of Diabetes Mellitus. PERFORMED BY: [address] [place] [address] PATHOLOGIST CUSTOMER EXPERIENCE INTERN TRINA GARCIA M.D. Performed By: #### M G, TSH3, CBC, DIFF CBC, PT, PTT, CMP #### [address] Magnesiumon 11-26-2022 Magnesium [Mass/Vol] 2.3 mg/dL Normal 1.9-2.7 [facility] Comment on above: Performed By: #### M G, TSH3, CBC, DIFF CBC, PT, PTT, CMP #### [address] Prealbuminon 11-26-2022 Prealbumin [Mass/Vol] 22.6 mg/dL Normal 17.0-34.[address] [facility] Comment on above: Result Comment: PERF ORMED BY: [place] [address] PATHOLOGIST CUSTOMER EXPERIENCE INTERN TRINA GARCIA M.D. Performed By: #### M G, TSH3, CBC, DIFF CBC, PT, PTT, CMP #### [address] Scan and CBCon 11-26-2022 Anisocytosis Ql (Bld) Slight Normal [facility] Comment on above: Performed By: #### H S TROP, A1C WTH eA, SCAN CBC #### [place] [address] [place] Basophils (Bld) [#/Vol] 0.0 10*3/uL Normal 0.0-0.2 [facility] Comment on above: Performed By: #### H S TROP, A1C WTH eA, SCAN CBC #### [place] [address] [place] Basophils/100 WBC (Bld) 0.1 % Normal . [facility] Comment on above: Performed By: #### H S TROP, A1C WTH eA, SCAN CBC #### [facility] [address] [place] [address] [place] Eosinophils (Bld) [#/Vol] 0.0 10*3/uL Normal 0.0-0.45 [facility] Comment on above: Performed By: #### H S TROP, A1C WTH eA, SCAN CBC #### [facility] [address] [place] [address] [place] Eosinophils/100 WBC (Bld) 0.0 % Normal . [facility] Comment on above: Performed By: #### H S TROP, A1C WTH eA, SCAN CBC #### [address] Erythrocyte distribution width (RBC) [Ratio] 13.5 % Normal 12.0-14.8 [facility] Comment on above: Performed By: #### H S TROP, A1C WTH eA, SCAN CBC #### [place] [address] [place] Hematocrit (Bld) [Volume fraction] 34.3 % Low 38.8-50.0 [facility] Comment on above: Performed By: #### H S TROP, A1C WTH eA, SCAN CBC #### [place] [address] [place] Hemoglobin (Bld) [Mass/Vol] 11.3 g/dL Low 13.0-17.0 [facility] Comment on above: Performed By: #### H S TROP, A1C WTH eA, SCAN CBC #### [facility] [address] [place] [address] [place] Lymphocytes (Bld) [#/Vol] 0.5 10*3/uL Low 1.00-4.8 [facility] Comment on above: Performed By: #### H S TROP, A1C WTH eA, SCAN CBC #### [facility] [address] [place] [address] [place] Lymphocytes/100 WBC (Bld) 3.8 % Normal . [facility] Comment on above: Performed By: #### H S TROP, A1C WTH eA, SCAN CBC #### [facility] [address] [place] [address] MCH (RBC) [Entitic mass] 31.0 pg Normal 27.5-35.2 [facility] Comment on above: Performed By: #### H S TROP, A1C WTH eA, SCAN CBC #### [facility] [address] [place] [address] MCV (RBC) [Entitic vol] 94.0 fL Normal 83.5-101 [facility] Comment on above: Performed By: #### H S TROP, A1C WTH eA, SCAN CBC #### [address] Mean Corpuscular HGB Conc 33.0 g/dL Normal 32.5-35.6 [facility] Comment on above: Performed By: #### H S TROP, A1C WTH eA, SCAN CBC #### [address] Microcytosis Slight Normal [facility] Comment on above: Performed By: #### H S TROP, A1C WTH eA, SCAN CBC #### [address] Monocytes (Bld) [#/Vol] 0.1 10*3/uL Normal 0.0-0.8 [facility] Comment on above: Performed By: #### H S TROP, A1C WTH eA, SCAN CBC #### [address] Monocytes/100 WBC (Bld) 0.7 % Normal . [facility] Comment on above: Performed By: #### H S TROP, A1C WTH eA, SCAN CBC #### [facility] [address] [place] [address] Neutrophils (Bld) [#/Vol] 12.1 10*3/uL High 1.8-7.7 [facility] Comment on above: Performed By: #### H S TROP, A1C WTH eA, SCAN CBC #### [address] Neutrophils/100 WBC (Bld) 95.4 % Normal . [facility] Comment on above: Performed By: #### H S TROP, A1C WTH eA, SCAN CBC #### [address] NRBC% 0.0 /100{WBC} Normal 0-0.5 [facility] Comment on above: Performed By: #### H S TROP, A1C WTH eA, SCAN CBC #### [address] Ovalocytes Slight Normal [facility] Comment on above: Performed By: #### H S TROP, A1C WTH eA, SCAN CBC #### [address] Platelet Estimate Normal Normal Normal [facility] Comment on above: Performed By: #### H S TROP, A1C WTH eA, SCAN CBC #### [address] Platelet mean volume (Bld) [Entitic vol] 8.2 fL Normal 6.6-10.1 [facility] Comment on above: Performed By: #### H S TROP, A1C WTH eA, SCAN CBC #### [address] Platelet Morphology Normal Normal Normal [facility] Comment on above: Result Comment: PERF ORMED BY: [place] [address] PATHOLOGIST CUSTOMER EXPERIENCE INTERN TRINA GARCIA M.D. Performed By: #### H S TROP, A1C WTH eA, SCAN CBC #### [place] [address] [place] Platelets (Bld) [#/Vol] 229 10*3/uL Normal 150-450 [facility] Comment on above: Performed By: #### H S TROP, A1C WTH eA, SCAN CBC #### [place] [address] [place] RBC (Bld) [#/Vol] 3.65 10*6/uL Low 3.90-5.60 [facility] Comment on above: Performed By: #### H S TROP, A1C WTH eA, SCAN CBC #### [address] WBC (Bld) [#/Vol] 12.6 10*3/uL High 4.1-10.5 [facility] Comment on above: Performed By: #### H S TROP, A1C WTH eA, SCAN CBC #### [address] Troponin I High Sensitivityo n 11-26-2022 Troponin I High Sensitivity 19.7 pg/mL Normal 0.0-20.0 [facility] Comment on above: Result Comment: PERF ORMED BY: [place] [address] PATHOLOGIST CUSTOMER EXPERIENCE INTERN TRINA GARCIA M.D. Performed By: #### H S TROP, A1C WTH eA, SCAN CBC #### [address] Troponin I High Sensitivity 24.1 pg/mL High 0.0-20.0 [facility] Comment on above: Result Comment: PERF ORMED BY: [place] [address] PATHOLOGIST CUSTOMER EXPERIENCE INTERN TRINA GARCIA M.D. Performed By: #### M G, TSH3, CBC, DIFF CBC, PT, PTT, CMP #### [address] Urine Cultureon 11-26-2022 Bacteria identified Cx Nom (U) No Growth 2 Days PERFORMED BY: [place] [address] PATHOLOGIST CUSTOMER EXPERIENCE INTERN TRINA GARCIA M.D. Normal [facility] Comment on above: Performed By: #### M G, TSH3, CBC, DIFF CBC, PT, PTT, CMP #### [address] Activated partial thrombopla stin time (aPTT) in platelet poor plasma by coagulation aOrdered By: Shukri Francisco on 11-25-2022 aPTT Coag (PPP) [Time] 23.3 s 25.1-36.5 [facility] Alanine aminotransferase [En zymatic activity/volume] in Serum or PlasmaOrdered By: Shukri Francisco on 11-25-2022 ALT [Catalytic activity/Vol] 9 U/L 7-52 [facility] Albumin [Mass/volume] in Ser um or Plasma by Bromocresol green (BCG) dye binding methoOrdered By: Shukri Francisco on 11-25-2022 Albumin BCG dye [Mass/Vol] 3.2 g/dL 3.5-5.7 [facility] Alkaline phosphatase [Enzyma tic activity/volume] in Serum or PlasmaOrdered By: Shukri Francisco on 11-25-2022 ALP [Catalytic activity/Vol] 114 U/L 34-104 [facility] Aspartate aminotransferase [ Enzymatic activity/volume] in Serum or PlasmaOrdered By: Shukri Francisco on 11-25-2022 AST [Catalytic activity/Vol] 11 U/L 13-39 [facility] Automated erythrocytes count in urine sediment (number/area)Ordered By: Shukri Francisco on 11-25-2022 RBC Auto (Urine sed) [#/Area] 0-1 [HPF] 0-4 [facility] Automated leukocytes count i n urine sediment (number/area)Ordered By: Shukri Francisco on 11-25-2022 WBC Auto (Urine sed) [#/Area] 0-1 [HPF] 0-4 [facility] B-Type Natriuretic Peptideon 11-25-2022 Natriuretic peptide B (Bld) [Mass/Vol] 194.0 pg/mL High 5-100 [facility] Comment on above: Result Comment: PERF ORMED BY: [place] [address] PATHOLOGIST CUSTOMER EXPERIENCE INTERN TRINA GARCIA M.D. Performed By: #### M G, TSH3, CBC, DIFF CBC, PT, PTT, CMP #### [address] Band form neutrophils/100 WB C Manual cnt (Bld)Ordered By: Shukri Francisco on 11-25-2022 Band form neutrophils/100 WBC (Bld) 2 % 0-5 [facility] Basophils Auto (Bld) [#/Vol] Ordered By: Shukri Francisco on 11-25-2022 Basophils (Bld) [#/Vol] N/A [facility] Basophils/100 WBC Auto (Bld) Ordered By: Shukri Francisco on 11-25-2022 Basophils/100 WBC (Bld) N/A [facility] Basophils/100 WBC Manual cnt (Bld)Ordered By: Shukri Francisco on 11-25-2022 Basophils/100 WBC (Bld) 0 % 0-2 [facility] Bilirubin Test strip Ql (U)O rdered By: Shukri Francisco on 11-25-2022 Bilirubin Ql (U) Negative Negative [facility] Bilirubin.total [Mass/volume ] in Serum or PlasmaOrdered By: Shukri Francisco on 11-25-2022 Bilirubin [Mass/Vol] 0.5 mg/dL 0.3-1.0 [facility] Blood Cultureon 11-25-2022 Bacteria identified Cx Nom (Bld) NO GROWTH 5 DAYS PERFORMED BY: [place] [address] PATHOLOGIST CUSTOMER EXPERIENCE INTERN TRINA GARCIA M.D. [facility] Comment on above: Performed By: #### M G, TSH3, CBC, DIFF CBC, PT, PTT, CMP #### [facility] [address] [place] [address] Bacteria identified Cx Nom (Bld) NO GROWTH 5 DAYS PERFORMED BY: [place] [address] PATHOLOGIST CUSTOMER EXPERIENCE INTERN TRINA GARCIA M.D. [facility] Comment on above: Performed By: #### M G, TSH3, CBC, DIFF CBC, PT, PTT, CMP #### [facility] [address] [place] [address] [place] Calcium [Mass/volume] in Ser um or PlasmaOrdered By: Shukri Francisco on 11-25-2022 Calcium [Mass/Vol] 9.1 mg/dL 8.6-10.3 [facility] Carbon dioxide, total [Moles /volume] in Serum or PlasmaOrdered By: Shukri Francisco on 11-25-2022 CO2 [Moles/Vol] 27.0 mmol/L 21.0-31.0 [facility] Chloride [Moles/volume] in S lio or PlasmaOrdered By: Shukri Francisco on 11-25-2022 Chloride [Moles/Vol] 108 mmol/L 98-107 [facility] Color Auto (U)Ordered By: Allie Francisco on 11-25-2022 Color (U) Yellow Yellow [facility] Complete Blood Count Auto Di ffon 11-25-2022 Erythrocyte distribution width (RBC) [Ratio] 13.6 % Normal 12.0-14.8 [facility] Comment on above: Performed By: #### M G, TSH3, CBC, DIFF CBC, PT, PTT, CMP #### [facility] [address] Hematocrit (Bld) [Volume fraction] 39.9 % Normal 38.8-50.0 [facility] Comment on above: Performed By: #### M G, TSH3, CBC, DIFF CBC, PT, PTT, CMP #### [facility] [address] Hemoglobin (Bld) [Mass/Vol] 13.1 g/dL Normal 13.0-17.0 [facility] Comment on above: Performed By: #### M G, TSH3, CBC, DIFF CBC, PT, PTT, CMP #### [address] MCH (RBC) [Entitic mass] 31.0 pg Normal 27.5-35.2 [facility] Comment on above: Performed By: #### M G, TSH3, CBC, DIFF CBC, PT, PTT, CMP #### [address] MCV (RBC) [Entitic vol] 94.1 fL Normal 83.5-101 [facility] Comment on above: Performed By: #### M G, TSH3, CBC, DIFF CBC, PT, PTT, CMP #### [address] Mean Corpuscular HGB Conc 32.9 g/dL Normal 32.5-35.6 [facility] Comment on above: Performed By: #### M G, TSH3, CBC, DIFF CBC, PT, PTT, CMP #### [address] Platelet mean volume (Bld) [Entitic vol] 8.1 fL Normal 6.6-10.1 [facility] Comment on above: Result Comment: PERF ORMED BY: [place] [address] PATHOLOGIST CUSTOMER EXPERIENCE INTERN TRINA GARCIA M.D. Performed By: #### M G, TSH3, CBC, DIFF CBC, PT, PTT, CMP #### [address] Platelets (Bld) [#/Vol] 278 10*3/uL Normal 150-450 [facility] Comment on above: Performed By: #### M G, TSH3, CBC, DIFF CBC, PT, PTT, CMP #### [address] RBC (Bld) [#/Vol] 4.24 10*6/uL Normal 3.90-5.60 [facility] Comment on above: Performed By: #### M G, TSH3, CBC, DIFF CBC, PT, PTT, CMP #### [address] WBC (Bld) [#/Vol] 21.8 10*3/uL High 4.1-10.5 [facility] Comment on above: Performed By: #### M G, TSH3, CBC, DIFF CBC, PT, PTT, CMP #### [facility] [address] Comprehensive Metabolic Pane uma 11-25-2022 Albumin [Mass/Vol] 3.2 g/dL Low 3.5-5.7 [facility] Comment on above: Performed By: #### M G, TSH3, CBC, DIFF CBC, PT, PTT, CMP #### [facility] [address] [place] [address] Albumin/Globulin [Mass ratio] 1.1 {ratio} Normal [facility] Comment on above: Performed By: #### M G, TSH3, CBC, DIFF CBC, PT, PTT, CMP #### [address] ALP [Catalytic activity/Vol] 114 U/L High 34-104 [facility] Comment on above: Performed By: #### M G, TSH3, CBC, DIFF CBC, PT, PTT, CMP #### [address] ALT [Catalytic activity/Vol] 9 U/L Normal 7-52 [facility] Comment on above: Performed By: #### M G, TSH3, CBC, DIFF CBC, PT, PTT, CMP #### [facility] [address] [place] [address] Anion gap [Moles/Vol] 11.0 mmol/L Normal 6.0-15.0 [facility] Comment on above: Performed By: #### M G, TSH3, CBC, DIFF CBC, PT, PTT, CMP #### [facility] [address] [place] [address] AST [Catalytic activity/Vol] 11 U/L Low 13-39 [facility] Comment on above: Performed By: #### M G, TSH3, CBC, DIFF CBC, PT, PTT, CMP #### [facility] [address] [place] [address] Bilirubin [Mass/Vol] 0.5 mg/dL Normal 0.3-1.0 [facility] Comment on above: Performed By: #### M G, TSH3, CBC, DIFF CBC, PT, PTT, CMP #### [address] Calcium [Mass/Vol] 9.1 mg/dL Normal 8.6-10.3 [facility] Comment on above: Performed By: #### M G, TSH3, CBC, DIFF CBC, PT, PTT, CMP #### [address] [place] [address] [place] Chloride [Moles/Vol] 108 mmol/L High 98-107 [facility] Comment on above: Performed By: #### M G, TSH3, CBC, DIFF CBC, PT, PTT, CMP #### [facility] [address] CO2 [Moles/Vol] 27.0 mmol/L Normal 21.0-31.0 [facility] Comment on above: Performed By: #### M G, TSH3, CBC, DIFF CBC, PT, PTT, CMP #### [facility] [address] Creatinine [Mass/Vol] 1.14 mg/dL Normal 0.70-1.[address] [facility] Comment on above: Performed By: #### M G, TSH3, CBC, DIFF CBC, PT, PTT, CMP #### [address] Creatinine Clr Calc Pharmacy 41.45 [facility] Comment on above: Performed By: #### M G, TSH3, CBC, DIFF CBC, PT, PTT, CMP #### [facility] [address] GFR/1.73 sq M.predicted MDRD (S/P/Bld) [Vol rate/Area] mL/min/{1.73_m2} [facility] Comment on above: Performed By: #### M G, TSH3, CBC, DIFF CBC, PT, PTT, CMP #### [address] Globulin (S) [Mass/Vol] 3.0 g/dL [facility] Comment on above: Performed By: #### M G, TSH3, CBC, DIFF CBC, PT, PTT, CMP #### [address] Glucose [Mass/Vol] 54 mg/dL Low 70-100 [facility] Comment on above: Result Comment: [facility] Glucose Reference Range is dependent on time and content of last meal. Glucose of more than 200 mg/dL in a nonstressed, ambulatory subject supports the diagnosis of Diabetes Mellitus. ADA recommended reference range Performed By: #### M G, TSH3, CBC, DIFF CBC, PT, PTT, CMP #### [facility] [address] Potassium [Moles/Vol] 4.0 mmol/L Normal 3.5-5.[address] [facility] Comment on above: Performed By: #### M G, TSH3, CBC, DIFF CBC, PT, PTT, CMP #### [facility] [address] Protein [Mass/Vol] 6.2 g/dL Low 6.4-8.9 [facility] Comment on above: Performed By: #### M G, TSH3, CBC, DIFF CBC, PT, PTT, CMP #### [facility] [address] Sodium [Moles/Vol] 142 mmol/L Normal 136-145 [facility] Comment on above: Performed By: #### M G, TSH3, CBC, DIFF CBC, PT, PTT, CMP #### [facility] [address] Urea nitrogen [Mass/Vol] 35 mg/dL High 7-25 [facility] Comment on above: Performed By: #### M G, TSH3, CBC, DIFF CBC, PT, PTT, CMP #### [facility] [address] [place] [address] Creatinine [Mass/volume] in Serum or PlasmaOrdered By: Shukri Francisco on 11-25-2022 Creatinine [Mass/Vol] 1.14 mg/dL 0.70-1.[address] [facility] Diff and CBCon 11-25-2022 Band form neutrophils/100 WBC (Bld) 2 % Normal 0-5 [facility] Comment on above: Performed By: #### M G, TSH3, CBC, DIFF CBC, PT, PTT, CMP #### [facility] [address] [place] [address] [place] Basophils/100 WBC (Bld) 0 % Normal 0-2 [facility] Comment on above: Performed By: #### M G, TSH3, CBC, DIFF CBC, PT, PTT, CMP #### [facility] [address] [place] [address] [place] Eosinophils/100 WBC (Bld) 0 % Low 1-3 [facility] Comment on above: Performed By: #### M G, TSH3, CBC, DIFF CBC, PT, PTT, CMP #### [facility] [address] [place] [address] [place] Lymphocytes/100 WBC (Bld) 6 % Low 18-42 [facility] Comment on above: Performed By: #### M G, TSH3, CBC, DIFF CBC, PT, PTT, CMP #### [place] [address] [place] Metamyelocytes 1 % High 0-0 [facility] Comment on above: Performed By: #### M G, TSH3, CBC, DIFF CBC, PT, PTT, CMP #### [place] [address] [place] Monocytes/100 WBC (Bld) 19.98 % Normal 0.00-20.00 [facility] Comment on above: Result Comment: For adults in ED, MDW > 20.0 may be associated with a higher risk of sepsis during the first 12 hrs of hospital admission The predictive value of MDW for identifying sepsis in patients with hematological abnormalities has not been established Performed By: #### M G, TSH3, CBC, DIFF CBC, PT, PTT, CMP #### [facility] [address] [place] [address] [place] Monocytes/100 WBC (Bld) 2 % Normal 2-11 [facility] Comment on above: Performed By: #### M G, TSH3, CBC, DIFF CBC, PT, PTT, CMP #### [place] [address] [place] Myelocytes 4 % High 0-0 [facility] Comment on above: Performed By: #### M G, TSH3, CBC, DIFF CBC, PT, PTT, CMP #### [facility] [address] [place] [address] [place] Platelet Estimate Normal Normal Normal [facility] Comment on above: Performed By: #### M G, TSH3, CBC, DIFF CBC, PT, PTT, CMP #### [facility] [address] [place] [address] Platelet Morphology Normal Normal Normal [facility] Comment on above: Result Comment: PERF ORMED BY: [place] [address] PATHOLOGIST CUSTOMER EXPERIENCE INTERN TRINA GARCIA M.D. Performed By: #### M G, TSH3, CBC, DIFF CBC, PT, PTT, CMP #### [facility] [address] [place] [address] RBC morphology finding Nom (Bld) Normal Normal Normal [facility] Comment on above: Performed By: #### M G, TSH3, CBC, DIFF CBC, PT, PTT, CMP #### [address] Segmented neutrophils/100 WBC (Bld) 85 % High 50-70 [facility] Comment on above: Performed By: #### M G, TSH3, CBC, DIFF CBC, PT, PTT, CMP #### [address] Dipstick and Microscopicon 0 11-25-2022 Appearance (U) Clear Normal Clear [facility] Comment on above: Order Comment: Name Collection Type:: Berry Catheter Performed By: #### M G, TSH3, CBC, DIFF CBC, PT, PTT, CMP #### [facility] [address] [place] [address] Bacteria,Urine None Seen Normal None Seen [facility] Comment on above: Order Comment: Name Collection Type:: Berry Catheter Performed By: #### M G, TSH3, CBC, DIFF CBC, PT, PTT, CMP #### [place] [address] [place] Bilirubin,Urine Negative Normal Negative [facility] Comment on above: Order Comment: Name Collection Type:: Berry Catheter Performed By: #### M G, TSH3, CBC, DIFF CBC, PT, PTT, CMP #### [address] [place] [address] [place] Color (U) Yellow Normal Yellow [facility] Comment on above: Order Comment: Name Collection Type:: Berry Catheter Performed By: #### M G, TSH3, CBC, DIFF CBC, PT, PTT, CMP #### [facility] [address] Glucose Ql (U) Normal Normal Normal [facility] Comment on above: Order Comment: Name Collection Type:: Berry Catheter Performed By: #### M G, TSH3, CBC, DIFF CBC, PT, PTT, CMP #### [facility] [address] Hyaline Casts,Urine 0-8 Normal 0-8 [facility] Comment on above: Order Comment: Name Collection Type:: Berry Catheter Result Comment: PERF ORMED BY: [place] [address] PATHOLOGIST CUSTOMER EXPERIENCE INTERN TRINA GARCIA M.D. Performed By: #### M G, TSH3, CBC, DIFF CBC, PT, PTT, CMP #### [address] Ketones Ql (U) Trace High Negative [facility] Comment on above: Order Comment: Name Collection Type:: Berry Catheter Performed By: #### M G, TSH3, CBC, DIFF CBC, PT, PTT, CMP #### [address] Leukocyte esterase Test strip Ql (U) Negative Normal Negative [facility] Comment on above: Order Comment: Name Collection Type:: Berry Catheter Performed By: #### M G, TSH3, CBC, DIFF CBC, PT, PTT, CMP #### [place] [address] [place] Nitrite,Urine Negative Normal Negative [facility] Comment on above: Order Comment: Name Collection Type:: Berry Catheter Performed By: #### M G, TSH3, CBC, DIFF CBC, PT, PTT, CMP #### [address] Occult Blood,Urine Negative Normal Negative [facility] Comment on above: Order Comment: Name Collection Type:: Berry Catheter Result Comment: PERF ORMED BY: [place] [address] PATHOLOGIST CUSTOMER EXPERIENCE INTERN TRINA GARCIA M.D. Performed By: #### M G, TSH3, CBC, DIFF CBC, PT, PTT, CMP #### [address] pH (U) 6.0 [pH] Normal 5.0-9.0 [facility] Comment on above: Order Comment: Name Collection Type:: Berry Catheter Performed By: #### M G, TSH3, CBC, DIFF CBC, PT, PTT, CMP #### [address] Protein (U) [Mass/Vol] 300 mg/dL High Negative [facility] Comment on above: Order Comment: Name Collection Type:: Berry Catheter Performed By: #### M G, TSH3, CBC, DIFF CBC, PT, PTT, CMP #### [address] RBC LM.HPF (Urine sed) [#/Area] 0 /[HPF] Normal 0-4 [facility] Comment on above: Order Comment: Name Collection Type:: Berry Catheter Performed By: #### M G, TSH3, CBC, DIFF CBC, PT, PTT, CMP #### [address] Specificy [place],Urine 1.024 Normal 1.001-1.030 [facility] Comment on above: Order Comment: Name Collection Type:: Berry Catheter Performed By: #### M G, TSH3, CBC, DIFF CBC, PT, PTT, CMP #### [place] [address] [place] Squamous Epithelial Cell,Urine 0-1 Normal 0-2 [facility] Comment on above: Order Comment: Name Collection Type:: Berry Catheter Performed By: #### M G, TSH3, CBC, DIFF CBC, PT, PTT, CMP #### [facility] [address] Urobilinogen,Urine Normal Normal Normal [facility] Comment on above: Order Comment: Name Collection Type:: Berry Catheter Performed By: #### M G, TSH3, CBC, DIFF CBC, PT, PTT, CMP #### [facility] [address] [place] [id number] [place] WBC LM.HPF (Urine sed) [#/Area] 0 /[HPF] Normal 0-4 [facility] Comment on above: Order Comment: Name Collection Type:: Berry Catheter Performed By: #### M G, TSH3, CBC, DIFF CBC, PT, PTT, CMP #### [facility] [address] ECG 12 lead ECGon 11-25-2022 ECG 12 lead ECG [facility] [place] [address] [place] [address] Electrocardiograph Report Signed Patient: Franki Hernandez MR#: [id number] : 1940 Acct:[id number] Age/Sex: 82 / M ADM Date: 11/25/22 Loc: ER Room: Type: [facility] ER Attending Dr: Ordering Provider: Shukri Francisco [...] Signed By Shukri Francisco MD 10/13 Normal [facility] Eosinophils Auto (Bld) [#/Vo l]Ordered By: Shukri Francisco on 11-25-2022 Eosinophils (Bld) [#/Vol] N/A [facility] Eosinophils/100 WBC Auto (Bl d)Ordered By: Shukri Francisco on 11-25-2022 Eosinophils/100 WBC (Bld) N/A [facility] Eosinophils/100 WBC Manual c nt (Bld)Ordered By: Shukri Francisco on 11-25-2022 Eosinophils/100 WBC (Bld) 0 % 1-3 [facility] Erythrocyte distribution wid th Auto (RBC) [Ratio]Ordered By: Shukri Francisco on 11-25-2022 Erythrocyte distribution width (RBC) [Ratio] 13.6 % 12.0-14.8 [facility] Free T4 (Free Thyroxine)on 0 11-25-2022 Free T4 [Mass/Vol] 1.31 ng/dL High 0.61-1.12 [facility] Comment on above: Result Comment: PERF ORMED BY: [place] [address] PATHOLOGIST CUSTOMER EXPERIENCE INTERN TRINA GARCIA M.D. Performed By: #### M G, TSH3, CBC, DIFF CBC, PT, PTT, CMP #### [place] [address] [place] Globulin Calc (S) [Mass/Vol] Ordered By: Shukri Francisco on 11-25-2022 Globulin (S) [Mass/Vol] 3.0 g/dL [facility] Glucose Glucometer (BldC) [M ass/Vol]Ordered By: Jean-Pierre Otero on 11-25-2022 Glucose [Mass/Vol] 196 mg/dL [facility] Comment on above: Random Glucose Refer ence Range is dependent on time and content of last meal. Glucose of more than 200 mg/dL in a nonstressed, ambulatory subject supports the diagnosis of Diabetes Mellitus. Glucose Poct Glucometerson 0 11-25-2022 Glucose [Mass/Vol] 196 mg/dL Normal [facility] Comment on above: Result Comment: [place] Glucose Reference Range is dependent on time and content of last meal. Glucose of more than 200 mg/dL in a nonstressed, ambulatory subject supports the diagnosis of Diabetes Mellitus. PERFORMED BY: [facility] [address] [place] [address] PATHOLOGIST CUSTOMER EXPERIENCE INTERN TRINA GARCIA M.D. Performed By: #### M G, TSH3, CBC, DIFF CBC, PT, PTT, CMP #### [facility] [address] Commemt1 Normal [facility] Comment on above: Result Comment: Glu2 : WILL NOTIFY DR/RN Performed By: #### M G, TSH3, CBC, DIFF CBC, PT, PTT, CMP #### [facility] [address] Commemt2 FOLLOW HYPOGLYCEMIC Normal [facility] Comment on above: Result Comment: PERF ORMED BY: [facility] [address] [place] [address] PATHOLOGIST CUSTOMER EXPERIENCE INTERN TRINA GARCIA M.D. Performed By: #### M G, TSH3, CBC, DIFF CBC, PT, PTT, CMP #### [address] Glucose [Mass/Vol] 47 mg/dL Off scale low [facility] Comment on above: Result Comment: [place] Glucose Reference Range is dependent on time and content of last meal. Glucose of more than 200 mg/dL in a nonstressed, ambulatory subject supports the diagnosis of Diabetes Mellitus. Performed By: #### M G, TSH3, CBC, DIFF CBC, PT, PTT, CMP #### [facility] [address] [place] [address] Glucose [Mass/volume] in Ser um or PlasmaOrdered By: Shukri Francisco on 11-25-2022 Glucose [Mass/Vol] 54 mg/dL 70-100 [facility] Comment on above: ADA recommended refe rence rangeRandom Glucose Reference Range is dependent on time and content of last meal. Glucose of more than 200 mg/dL in a nonstressed, ambulatory subject supports the diagnosis of Diabetes Mellitus. Hematocrit Auto (Bld) [Volum e fraction]Ordered By: Shukri Francisco on 11-25-2022 Hematocrit (Bld) [Volume fraction] 39.9 % 38.8-50.0 [facility] Hemoglobin [Mass/volume] in BloodOrdered By: Shukri Francisco on 11-25-2022 Hemoglobin (Bld) [Mass/Vol] 13.1 g/dL 13.0-17.0 [facility] Ketones Auto test strip (U) [Mass/Vol]Ordered By: Shukri Francisco on 11-25-2022 Ketones (U) [Mass/Vol] Trace Negative [facility] Laboratory - CoagulationOrde red By: Shukri Francisco on 11-25-2022 PT Coag (PPP) [Time] 10.6 s 9.0-12.9 [facility] - UrinalysisOrder ed By: Shukri Francisco on 11-25-2022 Hyaline casts LM Ql (Urine sed) 0-8 [LPF] 0-8 [facility] Leukocytes [#/volume] correc oz for nucleated erythrocytes in Blood by Automated counOrdered By: Shukri Francisco on 11-25-2022 WBC corrected for nucl RBC Auto (Bld) [#/Vol] 21.8 10*3/uL 4.1-10.5 [facility] Lymphocytes Auto (Bld) [#/Vo l]Ordered By: Shukri Francisco on 11-25-2022 Lymphocytes (Bld) [#/Vol] N/A [facility] Lymphocytes/100 WBC Auto (Bl d)Ordered By: Shukri Francisco on 11-25-2022 Lymphocytes/100 WBC (Bld) N/A [facility] Lymphocytes/100 WBC Manual c nt (Bld)Ordered By: Shukri Francisco on 11-25-2022 Lymphocytes/100 WBC (Bld) 6 % 18-42 [facility] MCH Auto (RBC) [Entitic mass ]Ordered By: Shukri Francisco on 11-25-2022 MCH (RBC) [Entitic mass] 31.0 pg 27.5-35.2 [facility] MCHC Auto (RBC) [Mass/Vol]Or dered By: Shukri Francisco on 11-25-2022 MCHC (RBC) [Mass/Vol] 32.9 g/dL 32.5-35.[address] [facility] MCV Auto (RBC) [Entitic vol] Ordered By: Shukri Francisco on 07-05-2023 MCV (RBC) [Entitic vol] 94.1 fL 83.5-101 [facility] Magnesiumon 11-25-2022 Magnesium [Mass/Vol] 1.7 mg/dL Low 1.9-2.7 [facility] Comment on above: Performed By: #### M G, TSH3, CBC, DIFF CBC, PT, PTT, CMP #### [facility] [address] Magnesium [Mass/volume] in S lio or PlasmaOrdered By: Shukri Francisco on 11-25-2022 Magnesium [Mass/Vol] 1.7 mg/dL 1.9-2.7 [facility] Metamyelocytes/100 WBC Manua l cnt (Bld)Ordered By: Shukri Francisco on 11-25-2022 Metamyelocytes/100 WBC (Bld) 1 % 0-0 [facility] Monocyte distribution width [Entitic volume] in Blood by AutomatedOrdered By: Shukri Francisco on 11-25-2022 Monocyte distribution width Auto (Bld) [Entitic vol] 19.98 % 0.00-20.00 [facility] Comment on above: For adults in ED, MD W > 20.0 may be associated with a higher risk of sepsis during the first 12 hrs of hospital admissionThe predictive value of MDW for identifying sepsis in patients with hematological abnormalities has not been established Monocytes Auto (Bld) [#/Vol] Ordered By: Shukri Francisco on 11-25-2022 Monocytes (Bld) [#/Vol] N/A [facility] Monocytes/100 WBC Auto (Bld) Ordered By: Shukri Francisco on 11-25-2022 Monocytes/100 WBC (Bld) N/A [facility] Monocytes/100 WBC Manual cnt (Bld)Ordered By: Shukri Francisco on 11-25-2022 Monocytes/100 WBC (Bld) 2 % 2-11 [facility] Myelocytes/100 WBC Manual cn t (Bld)Ordered By: Shukri Francisco on 11-25-2022 Myelocytes/100 WBC (Bld) 4 % 0-0 [facility] Natriuretic peptide B [Mass/ Vol]Ordered By: Shukri Francisco on 11-25-2022 Natriuretic peptide B (Bld) [Mass/Vol] 194.0 pg/mL 5-100 [facility] Neutrophils Auto (Bld) [#/Vo l]Ordered By: Shukri Francisco on 11-25-2022 Neutrophils (Bld) [#/Vol] N/A [facility] Neutrophils/100 WBC Auto (Bl d)Ordered By: Shukri Francisco on 11-25-2022 Neutrophils/100 WBC (Bld) N/A [facility] Nitrite Test strip Ql (U)Ord ered By: Shukri Francisco on 11-25-2022 Nitrite Ql (U) Negative Negative [facility] No Panel InformationOrdered By: Jean-Pierre Otero on 11-25-2022 Bedside Glucose #2 Comment Follow hypoglycemic [facility] Bedside Glucose Comment See comment [facility] Comment on above: Glu2: WILL NOTIFY DR /RN No Panel InformationOrdered By: Shukri Francisco on 11-25-2022 Estimated GFR (CKD-EPI) > 60.0 mL/Min [facility] Creatinine Clearance (Chem 41.45 [facility] Nucleated erythrocytes [Pres ence] in Blood by Automated countOrdered By: Shukri Francisco on 11-25-2022 Nucleated RBC Auto Ql (Bld) N/A [facility] Partial Thromboplastin Timeo n 11-25-2022 aPTT Coag (Bld) [Time] 23.3 s Low 25.1-36.5 [facility] Comment on above: Result Comment: PERF ORMED BY: [place] [address] PATHOLOGIST CUSTOMER EXPERIENCE INTERN TRINA GARCIA M.D. Performed By: #### M G, TSH3, CBC, DIFF CBC, PT, PTT, CMP #### [facility] [address] [place] [address] Platelet adequacy [Presence] in Blood by Light microscopyOrdered By: Shukri Francisco on 11-25-2022 Platelets LM Ql (Bld) Normal Normal [facility] Platelet mean volume Auto (B ld) [Entitic vol]Ordered By: Shukri Francisco on 11-25-2022 Platelet mean volume (Bld) [Entitic vol] 8.1 fL 6.6-10.1 [facility] Platelet morphology finding [Identifier] in BloodOrdered By: Shukri Francisco on 11-25-2022 Platelet morphology finding Nom (Bld) Normal Normal [facility] Platelet poor plasma interna tional normalized ratio (INR) by coagulation assay (relatOrdered By: Shukri Francisco on 11-25-2022 INR Coag (PPP) [Relative time] 0.9 {INR} [facility] Comment on above: INR Therapeutic Rang e [...] 11-25-2022 Platelets (Bld) [#/Vol] 278 10*3/uL 150-450 [facility] Potassium [Moles/volume] in Serum or PlasmaOrdered By: Shukri Francisco on 11-25-2022 Potassium [Moles/Vol] 4.0 mmol/L 3.5-5.[address] [facility] Protein Auto test strip (U) [Mass/Vol]Ordered By: Shukri Francisco on 11-25-2022 Protein (U) [Mass/Vol] 300 mg/dL Negative [facility] Protein [Mass/volume] in Ser um or PlasmaOrdered By: Shukri Francisco on 11-25-2022 Protein [Mass/Vol] 6.2 g/dL 6.4-8.9 [facility] Prothrombin Time INRon 11-25 INR Coag (PPP) [Relative time] 0.9 {INR} Normal [facility] Comment on above: Result Comment: INR Therapeutic [...] CBC, DIFF CBC, PT, PTT, CMP #### [facility] [address] PT Coag (PPP) [Time] 10.6 s Normal 9.0-12.9 [facility] Comment on above: Performed By: #### M G, TSH3, CBC, DIFF CBC, PT, PTT, CMP #### [facility] [address] RBC Auto (Bld) [#/Vol]Ordere d By: Shukri Francisco on 11-25-2022 RBC (Bld) [#/Vol] 4.24 10*6/uL 3.90-5.60 [facility] RBC morphologyOrdered By: Allie Francisco on 11-25-2022 RBC morphology finding Nom (Bld) Normal Normal [facility] Segmented neutrophils/100 WB C Manual cnt (Bld)Ordered By: Shukri Francisco on 11-25-2022 Segmented neutrophils/100 WBC (Bld) 85 % 50-70 [facility] Serum or plasma albumin/glob ulin mass ratioOrdered By: Shukri Francisco on 11-25-2022 Albumin/Globulin [Mass ratio] 1.1 {ratio} [facility] Serum or plasma anion gap de terminationOrdered By: Shukri Francisco on 11-25-2022 Anion gap [Moles/Vol] 11.0 mmol/L 6.0-15.0 [facility] Sodium [Moles/volume] in Ser um or PlasmaOrdered By: Shukri Francisco on 11-25-2022 Sodium [Moles/Vol] 142 mmol/L 136-145 [facility] Specific gravity Auto test s trip (U) [Rel density]Ordered By: Shukri Francisco on 11-25-2022 Specific gravity (U) [Rel density] 1.024 1.001-1.030 [facility] Squamous epithelial cells de tection in urine sediment by light microscopyOrdered By: Shukri Francisco on 11-25-2022 Epithelial cells.squamous LM Ql (Urine sed) 0-1 [HPF] 0-2 [facility] Thyroid Stimulating Hormoneo n 11-25-2022 TSH Qn 0.17 m[IU]/L Low 0.45-5.33 [facility] Comment on above: Result Comment: PERF ORMED BY: [place] [address] PATHOLOGIST CUST[employer]ER [employer] INTERN TRINA GARCIA M.D. Performed By: #### M G, TSH3, CBC, DIFF CBC, PT, PTT, CMP #### [place] [id number] [facility] Thyrotropin [Units/volume] i n Serum or PlasmaOrdered By: Shukri Francisco on 11-25-2022 TSH Qn 0.17 m[IU]/L 0.45-5.33 [facility] Thyroxine (T4) free [Mass/vo lume] in Serum or PlasmaOrdered By: Shukri Francisco on 11-25-2022 Free T4 [Mass/Vol] 1.31 ng/dL 0.61-1.12 [facility] Troponin I High Sensitivityo n 11-25-2022 Troponin I High Sensitivity 28.3 pg/mL High 0.0-20.0 [facility] Comment on above: Result Comment: PERF ORMED BY: [place] [address] PATHOLOGIST CUSTOMER [employer]PERIENCE INTERN TRINA GARCIA M.D. Performed By: #### M G, TSH3, CBC, DIFF CBC, PT, PTT, CMP #### [facility] [address] [place] [address] Troponin I.cardiac [Mass/vol ume] in Serum or Plasma by Detection limit <= 0.01 ng/Ordered By: Shukri Francisco on 11-25-2022 Troponin I.cardiac DL <= 0.01 ng/mL [Mass/Vol] 28.3 pg/mL 0.0-20.0 [facility] Urea nitrogen [Mass/volume] in Serum or PlasmaOrdered By: Shukri Francisco on 11-25-2022 Urea nitrogen [Mass/Vol] 35 mg/dL 7-25 [facility] Urine bacteria detection by automated methodOrdered By: Shukri Francisco on 11-25-2022 Bacteria Auto Ql (U) None seen None Seen [facility] Urine clarity by refractomet ry automatedOrdered By: Shukri Francisco on 11-25-2022 Clarity Refractometry automated (U) Clear Clear [facility] Urine glucose measurement by automated test strip (mass/volume)Ordered By: Shukri Francisco on 11-25-2022 Glucose Auto test strip (U) [Mass/Vol] Normal mg/dL Normal [facility] Urine hemoglobin detection b y automated test stripOrdered By: Shurki Francisco on 11-25-2022 Hemoglobin Auto test strip Ql (U) Negative Negative [facility] Urine leukocyte esterase det ection by automated test stripOrdered By: Shukri Francisco on 11-25-2022 Leukocyte esterase Auto test strip Ql (U) Negative Negative [facility] Urobilinogen Auto test strip (U) [Mass/Vol]Ordered By: Shukri Francisco on 11-25-2022 Urobilinogen (U) [Mass/Vol] Normal mg/dL Normal [facility] WBC Auto (Bld) [#/Vol]Ordere d By: Shukri Francisco on 11-25-2022 WBC (Bld) [#/Vol] 21.8 10*3/uL 4.1-10.5 [facility] XR chest 1V portableon 11-25 XR chest 1V portable [facility] [place] [address] XRay Report Signed Patient: Franki Hernandez MR#: [id number] : 1940 Acct:[id number] Age/Sex: 82 / M ADM Date: 11/25/22 [...] David Chahal M.D.11/25/2022 6:13 PM Dictation Location: [place] [address] Transcribed By: PWS 11/25/221812 Dictated By: David Chahal DO 11/25/221811 Signed By: 11/25/221812 Normal [facility] pH Auto test strip (U)Ordere d By: Shukri Francisco on 11-25-2022 pH (U) 6.0 [pH] 5.0-9.0 [facility] XR LSPINE 2_3 VIEWSon 2022 XR LSPINE 2_3 VIEWS Normal [facility] CBC AUTO DIFFon 09-12-2022 BASO # 0.1 103/ul Normal 0.0-0.1 [facility] Comment on above: Performed By: #### C BC ####[facility] [address] [place] [address]Dr. Villa Yanes Basophils/100 WBC (Bld) 0.3 % Normal 0.2-2.0 [facility] Comment on above: Performed By: #### C BC ####[facility] R[address] [place], [place] [address]Dr. Villa Yanes EO # 0.1 103/ul Normal 0.0-0.7 [facility] Comment on above: Performed By: #### C BC ####[facility] Sn[address]ylsb[address] [place] [address]Dr. Villa Yanes Eosinophils/100 WBC (Bld) 0.5 % Critically low 0.9-7.0 [facility] Comment on above: Performed By: #### C BC ####[facility] Adbchvajgx67[address] [place] [address]Dr. Villa Yanes Erythrocyte distribution width (RBC) [Ratio] 12.3 % Normal 11.0-15.0 [facility] Comment on above: Performed By: #### C BC ####[facility] [address] [place], [place] [address]Dr. Villa Yanes Hematocrit (Bld) [Volume fraction] 40.2 % Critically low 42.0-54.0 [facility] Comment on above: Performed By: #### C BC ####[facility] [address] [place], [place] [address]Dr. Villa Yanes Hemoglobin (Bld) [Mass/Vol] 12.9 g/dL Critically low 14.0-18.0 [facility] Comment on above: Performed By: #### C BC ####[facility] Vuisnpzuqj[address] [place] [address]Dr. Villa Yanes IG # 0.16 10e3/ul Critically high 0.00-0.03 [facility] Comment on above: Performed By: #### C BC ####[facility] Byzzmycvgm0369 [place] [address]Dr. Villa Joaquín IG % 1.0 % Critically high 0.0-0.5 [facility] Comment on above: Performed By: #### C BC ####[facility] Cyfuottnul[address] [place] [address]Dr. Villa Yanes LYMPH # 1.2 103/ul Normal 1.2-3.8 [facility] Comment on above: Performed By: #### C BC ####[facility] Jjruimnvsq101[address] [place] [address]Dr. Villa Yanes Lymphocytes/100 WBC (Bld) 7.2 % Critically low 20.5-60.0 [facility] Comment on above: Performed By: #### C BC ####[facility] A[address]avdphwe[address] [place] [address]Dr. Brooklynkaren Yanes MANUAL DIFF REQ NO Normal [facility] Comment on above: Performed By: #### C BC ####[facility] Vdklenjjoy[address]34 [place] [address]Dr. Villa Joaquín MCH (RBC) [Entitic mass] 31.9 pg Normal 25.9-34.0 [facility] Comment on above: Performed By: #### C BC ####[facility] Lewxgcxifu[address] [place] [address]Dr. Villa Joaquín MCHC (RBC) [Mass/Vol] 32.1 g/dL Normal 29.9-35.2 [facility] Comment on above: Performed By: #### C BC ####[facility] P[address]jnscrfy[address] [place] [address]DrBrenden Yanes MCV (RBC) [Entitic vol] 99.5 fL Critically high 80.0-94.0 [facility] Comment on above: Performed By: #### C BC ####[facility] Uhzymgsicf[address] [place] [address]DrBrenden Yanes MONO # 0.9 103/ul Critically high 0.3-0.8 [facility] Comment on above: Performed By: #### C BC ####[facility] Kxxuoilenp1612 [place] [address]DrBrenden Yanes Monocytes/100 WBC (Bld) 5.6 % Normal 1.7-12.0 [facility] Comment on above: Performed By: #### C BC ####[facility] Ll[address] [place], [place] [address]Dr. Villa Yanes NEUT # 14.1 103/ul Critically high 1.4-6.5 [facility] Comment on above: Performed By: #### C BC ####[facility] Ufwayenxin[address] [place], [place] [address]Dr. Villa Yanes Neutrophils/100 WBC (Bld) 85.4 % Critically high 43.0-75.0 [facility] Comment on above: Performed By: #### C BC ####[facility] Hvwiwlrtdu[address] [place] [address]Dr. Villa Yanes Platelet mean volume (Bld) [Entitic vol] 9.9 fL Normal 9.5-13.5 [facility] Comment on above: Performed By: #### C BC ####[facility] C[address]cvqzx[address] [place], [place] [address]Dr. Villa Yanes PLT 275 103/ul Normal 150-450 [facility] Comment on above: Performed By: #### C BC ####[facility] [address]pt[address]tx[address] [place], [place] [address]DrBrenden Yanes RBC 4.04 106/ul Critically low 4.70-6.10 [facility] Comment on above: Performed By: #### C BC ####[facility] [address] [place], [place] [address]DrBrenden Driver Yanes WBC 16.5 103/ul Critically high 4.0-11.0 [facility] Comment on above: Performed By: #### C BC ####[facility] Gmkukuvwwo[address] [place], [place] [address]Dr. Brooklynkaren Joaquín CT ABD/PELV W CONon 09-13-[address] ABD/PELV W CON Normal [facility] ER URINE PROFILEon 3 Bilirubin Ql (U) Negative Normal NEGATIVE [facility] Comment on above: Performed By: #### E RUR ####[facility] [address]we[address] [place], [place] [address]Dr. Villa Yanes Clarity (U) CLEAR Normal CLEAR [facility] Comment on above: Performed By: #### E RUR ####[facility] Awuphxukdp[address] [place], [place] [address]Dr. Villa Yanes Color (U) LT. YELLOW Normal YELLOW [facility] Comment on above: Performed By: #### E RUR ####[facility] Dkz[address] [place], [place] [address]Dr. Villa Yanes ERUAHD A micrscopic examina tion will be performed if indicated. Normal [facility] Comment on above: Performed By: #### E RUR ####[facility] Rwyhuvnxii[address] [place], [place] [address]Dr. Villa Yanes Glucose Ql (U) Negative Normal NEGATIVE [facility] Comment on above: Performed By: #### E RUR ####[facility] O[address]tpqkylz[address] [place], [place] [address]Dr. Villa Yanes Hemoglobin Ql (U) Negative Normal NEGATIVE [facility] Comment on above: Performed By: #### E RUR ####[facility] Mehaukxpvz[address] [place], [place] [address]Dr. Villa Yanes Ketones Ql (U) Negative Normal NEGATIVE [facility] Comment on above: Performed By: #### E RUR ####[facility] Zrru[address]yl[address] [place], [place] [address]Dr. Villa Yanes LEUKOCYTES Negative Normal NEGATIVE [facility] Comment on above: Performed By: #### E RUR ####[facility] Tsbexywuje30[address] [place] [address]Dr. Villa Yanes Nitrite Ql (U) Negative Normal NEGATIVE [facility] Comment on above: Performed By: #### E RUR ####[facility] Iijxrqvflc0305 [place] [address]Dr. Villa Yanes pH (U) 8.0 [pH] Normal 5-9 [facility] Comment on above: Performed By: #### E RUR ####[facility] Uetxtpmahd[address] [place], [place] [address]Dr. Villa Yanes Protein (U) [Mass/Vol] 100 mg/dL Abnormal NEGATIVE/ TRACE [facility] Comment on above: Performed By: #### E RUR ####[facility] [address]zsw[address]nu[address] [place], [place] [address]Dr. Villa Yanes SPEC GRAVITY 1.020 Normal 1.005-<=1.[address] [place] [address] Comment on above: Performed By: #### E RUR ####[facility] Y[address] [place], [place] [address]Dr. Villa Yanes UR MICRO IND NOT INDICATED Normal [facility] Comment on above: Performed By: #### E RUR ####[facility] [address]axj[address]ir[address] [place], [place] [address]Dr. Villa Yanes Urobilinogen Qn (U) 0.2 {Mackenzie'U}/dL Normal 0.2 - 1. 0 [facility] Comment on above: Performed By: #### E RUR ####[facility] Ttq[address] [place], [place] [address]Dr. Villa Yanes PROF 14(COMP METB)on 023 Albumin [Mass/Vol] 3.3 g/dL Critically low 3.4-5.0 [facility] Comment on above: Performed By: #### H DEE, CMP ####[facility] [address]ll[address]vb[address] [place], [place] [address]Dr. Villa Yanes Albumin/Globulin [Mass ratio] 0.9 {ratio} Normal [facility] Comment on above: Performed By: #### H STROPN, CMP ####[facility] Hyvbmixhpo3486 [place] [id number]. Villa Yanes ALP [Catalytic activity/Vol] 208 U/L Critically high 46-116 [facility] Comment on above: Performed By: #### H STROPN, CMP ####[facility] Feftonbzol9117 [place] [id number]. Villa Yanes ALT [Catalytic activity/Vol] 16 U/L Normal 16-63 [facility] Comment on above: Performed By: #### H STROPN, CMP ####[facility] Zuqxefzrup0187 [place] [id number]. Villa Joaquín Anion gap [Moles/Vol] 11.3 mmol/L Normal [facility] Comment on above: Performed By: #### H STROPN, CMP ####[facility] Xhjodrnnpn74[address] [place] [address]Dr. Villa Yanes AST [Catalytic activity/Vol] 12 U/L Critically low 15-37 [facility] Comment on above: Performed By: #### H STROPN, CMP ####[facility] Gdaoxskuob[address] [place] [address]Dr. Villa Yanes Bilirubin [Mass/Vol] 0.3 mg/dL Normal 0.2-1.0 [facility] Comment on above: Performed By: #### H STROPN, CMP ####[facility] Sqlryuzlma0481 [place] [address]Dr. Brooklynkaren Yanes Calcium [Mass/Vol] 9.8 mg/dL Normal 8.5-10.1 [facility] Comment on above: Performed By: #### H STROPN, CMP ####[facility] Fvcsplchfk[address] [place] [address]Dr. Brooklynkaren Yanes Chloride [Moles/Vol] 103 mmol/L Normal 98-107 [facility] Comment on above: Performed By: #### H STROPN, CMP ####[facility] Mymufzydjm3634 [place] [address]Dr. Villa Yanes CO2 [Moles/Vol] 29.6 mmol/L Normal 21.0-32.0 [facility] Comment on above: Performed By: #### H STROPN, CMP ####[facility] Vkbmwkwalk9791 [place] [address]Dr. Villa Yanes Creatinine [Mass/Vol] 1.12 mg/dL Normal 0.70-1.30 [facility] Comment on above: Performed By: #### H STROPN, CMP ####[facility] Rucaqknesn[address] [place] [address]Dr. Villa Yanes EGFR-AF RUSSIAN >60 Normal >=60 [facility] Comment on above: Performed By: #### H STROPN, CMP ####[facility] Oicowefxtk[address] [place] [address]Dr. Villa Yanes EGFR-NON AF RUSSIAN >60 Normal >=60 [facility] Comment on above: Performed By: #### H STROPN, CMP ####[facility] Diemnehbct1997 [place] [address]Dr. Villa Yanes Globulin (S) [Mass/Vol] 3.7 g/dL Normal [facility] Comment on above: Performed By: #### H STROPN, CMP ####[facility] Puottwqjzu[address] [place] [address]Dr. Villa Yanes Glucose [Mass/Vol] 151 mg/dL Critically high 74-106 [facility] Comment on above: Performed By: #### H STROPN, CMP ####[facility] Lxylgbtglp1781 [place] [address]Dr. Villa Yanes Potassium [Moles/Vol] 3.9 mmol/L Normal 3.5-5.1 [facility] Comment on above: Performed By: #### H STROPN, CMP ####[facility] Uvnocbaimb9206 [place] [address]Dr. Villa Yanes Protein [Mass/Vol] 7.0 g/dL Normal 6.4-8.2 [facility] Comment on above: Performed By: #### H STROPN, CMP ####[facility] Zuhetjcgrk2309 [place] [address]Dr. Villa Yanes Sodium [Moles/Vol] 140 mmol/L Normal 136-145 [facility] Comment on above: Performed By: #### H DEE, CMP ####[facility] Zogmhhvcbi1592 [place] [address]Dr. Villa Yanes Urea nitrogen [Mass/Vol] 30.0 mg/dL Critically high 7.0-18.0 [facility] Comment on above: Performed By: #### H DEE, CMP ####[facility] Fjwzbeesqw1644 [place] [address]Dr. Villa Yanes Urea nitrogen/Creatinine [Mass ratio] 26.8 mg/mg Normal [facility] Comment on above: Performed By: #### Carlos PRICE CMP ####[facility] [address]qw[address] [place], [place] [address]Dr. Villa Yanes TROPONIN, HIGH SENSITIVITYon 09-12-2022 HSTROP 8.9 pg/mL Normal 4.0-76.1 [facility] Comment on above: Result Comment: CUT- OFF POINTS HAVE BEEN ESTABLISHED BASED ON THE FOURTH UNIVERSAL DEFINITIONS OF MYOCARDIALINFARCTION. THE UPPER REFERENCE LIMIT (URL) OF TROPONIN, DEFINED THE 99TH PERCENTILE OFcTnI DISTRIBUTION IN A REFERENCE POPULATION, HAS BEEN CONFIRMED THE DECISION THRESHOLDFOR SD DIAGNOSIS. Performed By: #### Carlos PRICE CMP ####[facility] [address] [place], [place] [address]Dr. Brooklynkaren Yanes CBC AUTO DIFFon 08-18-2022 BASO # 0.1 103/ul Normal 0.0-0.1 [facility] Comment on above: Performed By: #### C BC ####[facility] [address]vx[address] [place], [place] [address]Dr. Villa Yanes Basophils/100 WBC (Bld) 0.6 % Normal 0.2-2.0 [facility] Comment on above: Performed By: #### C BC ####[facility] Cmum[address]ixl[address] [place], [place] [address]Dr. Villa Yanes EO # 0.1 103/ul Normal 0.0-0.7 [facility] Comment on above: Performed By: #### C BC ####[facility] Twlymtkfal4911 [place] [address]Dr. Villa Yanes Eosinophils/100 WBC (Bld) 1.2 % Normal 0.9-7.0 [facility] Comment on above: Performed By: #### C BC ####[facility] Mpmypx[address] [place], [place] [address]Dr. Villa Yanes Erythrocyte distribution width (RBC) [Ratio] 12.3 % Normal 11.0-15.0 [facility] Comment on above: Performed By: #### C BC ####[facility] Vdkomkrrnj[address] [place], [place] [address]Dr. Villa Yanes Hematocrit (Bld) [Volume fraction] 31.9 % Critically low 42.0-54.0 [facility] Comment on above: Performed By: #### C BC ####[facility] Abuyyngkov[address] [place], [place] [address]Dr. Villa Yanes Hemoglobin (Bld) [Mass/Vol] 10.4 g/dL Critically low 14.0-18.0 [facility] Comment on above: Performed By: #### C BC ####[facility] [address]nt[address] [place], [place] [address]Dr. Villa Yanes IG # 0.09 10e3/ul Critically high 0.00-0.03 [facility] Comment on above: Performed By: #### C BC ####[facility] Llpxdugmoo[address] [place], [place] [address]Dr. Villa Yanes IG % 1.0 % Critically high 0.0-0.5 [facility] Comment on above: Performed By: #### C BC ####[facility] Rrfiiwlgxn[address] [place], [place] [address]Dr. Villa Yanes LYMPH # 1.6 103/ul Normal 1.2-3.8 [facility] Comment on above: Performed By: #### C BC ####[facility] Egethrtzkm[address] [place], [place] [address]Dr. Villa Yanes Lymphocytes/100 WBC (Bld) 17.9 % Critically low 20.5-60.0 [facility] Comment on above: Performed By: #### C BC ####[facility] Gizadaocsj6061 [place] [id number]. Villa Yanes MANUAL DIFF REQ NO Normal [facility] Comment on above: Performed By: #### C BC ####[facility] Khngqqgzql0595 [place] [id number]. Villa Yanes MCH (RBC) [Entitic mass] 32.2 pg Normal 25.9-34.0 [facility] Comment on above: Performed By: #### C BC ####[facility] Owlrihzpuv[address]10 [place] [address]Dr. Villa Yanes MCHC (RBC) [Mass/Vol] 32.6 g/dL Normal 29.9-35.2 [facility] Comment on above: Performed By: #### C BC ####[facility] Ddebkvxrri9097 [place] [address]Dr. Villa Yanes MCV (RBC) [Entitic vol] 98.8 fL Critically high 80.0-94.0 [facility] Comment on above: Performed By: #### C BC ####[facility] [address]ml[address] [place], [place] [address]Dr. Villa Joaquín MONO # 0.6 103/ul Normal 0.3-0.8 [facility] Comment on above: Performed By: #### C BC ####[facility] H[address]vg[address]ajf[address] [place], [place] [address]Dr. Brooklynkaren Yanes Monocytes/100 WBC (Bld) 6.6 % Normal 1.7-12.0 [facility] Comment on above: Performed By: #### C BC ####[facility] Re[address] [place], [place] [address]Dr. Villa Yanes NEUT # 6.6 103/ul Critically high 1.4-6.5 [facility] Comment on above: Performed By: #### C BC ####[facility] [address]yx[address] [place], [place] [address]Dr. Brooklynkaren Yanes Neutrophils/100 WBC (Bld) 72.7 % Normal 43.0-75.0 [facility] Comment on above: Performed By: #### C BC ####[facility] Gytfkdfgca[address] [place] [phone]. Villa Yanes Platelet mean volume (Bld) [Entitic vol] 9.6 fL Normal 9.5-13.5 [facility] Comment on above: Performed By: #### C BC ####[facility] Snlrriiqit6[address] [place] [id number]. Villa Yanes PLT 206 103/ul Normal 150-450 [facility] Comment on above: Performed By: #### C BC ####[facility] Xlyofkmkbn[address] [place], [place] [id number]. Villa Joaquín RBC 3.23 106/ul Critically low 4.70-6.10 [facility] Comment on above: Performed By: #### C BC ####[facility] Krzaasgauk[address] [place], [place] [address]Dr. Brooklynkaren Yanes WBC 9.0 103/ul Normal 4.0-11.0 [facility] Comment on above: Performed By: #### C BC ####[facility] Vdayhrrzct[address] [place], [place] [address]Dr. Brooklynkaren Yanes CULTURE URINEon 08-18-2022 CULTURE URINE Culture Observations : LIGHT GROWTH OF MIXED SKIN ARACELI. NO POTENTIAL PATHOGENS SEEN. Normal [facility] Comment on above: Performed By: #### U RCX ####[facility] Zvrtwojtoe[address] [place], [place] [address]Dr. Villa Yanes PROF CHEM 8 (BAS METB)on Anion gap [Moles/Vol] 9.4 mmol/L Normal [facility] Comment on above: Performed By: #### B MP ####[facility] Ugzgjsewuc[address] [place], [place] [address]Dr. Villa Yanes Calcium [Mass/Vol] 8.8 mg/dL Normal 8.5-10.1 [facility] Comment on above: Performed By: #### B MP ####[facility] Gqqmgvacyg6[address] [place], [place] [address]Dr. Villa Yanes Chloride [Moles/Vol] 108 mmol/L Critically high 98-107 [facility] Comment on above: Performed By: #### B MP ####[facility] [address] [place] [address]Dr. Villa Yanes CO2 [Moles/Vol] 28.5 mmol/L Normal 21.0-32.0 [facility] Comment on above: Performed By: #### B MP ####[facility] Xtupmvxrim[address] [place] [address]Dr. Villa Yanes Creatinine [Mass/Vol] 0.76 mg/dL Normal 0.70-1.30 [facility] Comment on above: Performed By: #### B MP ####[facility] Oubwxjzumr[address] [place] [address]Dr. Villa Yanes EGFR-AF RUSSIAN >60 Normal >=60 [facility] Comment on above: Performed By: #### B MP ####[facility] Ajzupctmhq22[address] [place], [place] [address]Dr. Brooklynkaren Joaquín EGFR-NON AF RUSSIAN >60 Normal >=60 [facility] Comment on above: Performed By: #### B MP ####[facility] Dhsutwdwvv[address] [place], [place] [address]Dr. Villa Joaquín Glucose [Mass/Vol] 84 mg/dL Normal 74-106 [facility] Comment on above: Performed By: #### B MP ####[facility] Gihiieufef[address] [place], [place] [address]Dr. Villa Joaquín Potassium [Moles/Vol] 3.9 mmol/L Normal 3.5-5.1 [facility] Comment on above: Performed By: #### B MP ####[facility] Bvnkbkamhc[address] [place], [place] [address]Dr. Villa Yanes Sodium [Moles/Vol] 142 mmol/L Normal 136-145 [facility] Comment on above: Performed By: #### B MP ####[facility] Gcvdopqihf[address] [place], [place] [address]Dr. Brooklynkaren Yanes Urea nitrogen [Mass/Vol] 15.0 mg/dL Normal 7.0-18.0 [facility] Comment on above: Performed By: #### B MP ####[facility] Ttfbmnxfvq[address] [place] [address]Dr. Villa Yanes Urea nitrogen/Creatinine [Mass ratio] 19.7 mg/mg Normal [facility] Comment on above: Performed By: #### B MP ####[facility] Rkjnapeqcy8[address] [place], [place] [address]Dr. Villa Yanes UA RANDOM W/MICROSCOPICon BACTERIA NONE SEEN Normal NONE SEEN [facility] Comment on above: Performed By: #### U AMIC ####[facility] Iyjxjgclwn[address] [place], [place] [address]Dr. Villa Yanes Bilirubin Ql (U) Negative Normal NEGATIVE [facility] Comment on above: Performed By: #### U AMIC ####[facility] Gvdnmdnlva[address] [place], [place] [address]Dr. Villa Yanes CAST NONE SEEN Normal NONE SEEN [facility] Comment on above: Performed By: #### U AMIC ####[facility] Faqraasvta4[address] [place], [place] [address]Dr. Villa Yanes Clarity (U) CLEAR Normal CLEAR [facility] Comment on above: Performed By: #### U AMIC ####[facility] Ldunqjclss[address] [place], [place] [address]Dr. Villa Yanes Color (U) LT. YELLOW Normal YELLOW [facility] Comment on above: Performed By: #### U AMIC ####[facility] Ckewxhfifr620[address] [place], [place] [address]Dr. Villa Yanes Crystals LM Nom (Urine sed) NONE SEEN Normal NONE SEEN [facility] Comment on above: Performed By: #### U AMIC ####[facility] Wtvuoivlks1364[address] [place], [place] [address]Dr. Villa Yanes Epithelial cells LM Ql (Urine sed) NONE SEEN Normal NONE SEEN /RARE [facility] Comment on above: Performed By: #### U AMIC ####[facility] Vsarjhdoil[address] [place], [place] [address]Dr. Villa Yanes Glucose Ql (U) Negative Normal NEGATIVE [facility] Comment on above: Performed By: #### U AMIC ####[facility] Keahsjodhu[address] [place] [address]Dr. Villa Yanes Hemoglobin Ql (U) Negative Normal NEGATIVE [facility] Comment on above: Performed By: #### U AMIC ####[facility] Mmduxdaate18[address] [place], [place] [address]Dr. Villa Yanes Ketones Ql (U) Negative Normal NEGATIVE [facility] Comment on above: Performed By: #### U AMIC ####[facility] Iowjiehzdo70[address] [place], [place] [address]Dr. Villa Yanes LEUKOCYTES Negative Normal NEGATIVE [facility] Comment on above: Performed By: #### U AMIC ####[facility] Ptpqwoywip[address] [place], [place] [address]Dr. Villa Yanes MUCOUS NONE SEEN Normal NONE SEEN [facility] Comment on above: Performed By: #### U AMIC ####[facility] Jxtyjsjzql[address] [place], [place] [address]Dr. Villa Yanes Nitrite Ql (U) Negative Normal NEGATIVE [facility] Comment on above: Performed By: #### U AMIC ####[facility] Nmvchslezf9724[address] [place], [place] [address]Dr. Villa Yanes pH (U) 7.0 [pH] Normal 5-9 [facility] Comment on above: Performed By: #### U AMIC ####[facility] Wchzigufyj7[address] [place], [place] [address]Dr. Villa Yanes RBC 0-2 Normal 0-2 [facility] Comment on above: Performed By: #### U AMIC ####[facility] Yltwfkepvr0122[address] [place], [place] [address]Dr. Villa Yanes SPEC GRAVITY 1.015 Normal 1.005-<=1.0 25 [facility] Comment on above: Performed By: #### U AMIC ####[facility] Lhltsebcsu54[address] [place], [place] [address]Dr. Villa Yanes UA PROTEIN 100 mg/dl Abnormal NEGATIVE/ TRACE [facility] Comment on above: Performed By: #### U AMIC ####[facility] Vwdxeahivc[address] [place], [place] [address]Dr. Villa Yanes Urobilinogen Qn (U) 0.2 {Mackenzie'U}/dL Normal 0.2 - 1. 0 [facility] Comment on above: Performed By: #### U AMIC ####[facility] Kvldrcspze[address] [place] [address]Dr. Villa Yanes WBC NONE SEEN Normal NONE SEEN [facility] Comment on above: Performed By: #### U AMIC ####[facility] Axhhrdexki[address] [place] [address]Dr. Villa Yanes ACETONE SERUMon 08-17-2022 ACETONE Negative Normal NEGATIVE [facility] Comment on above: Performed By: #### A CETON ####[facility] Uohfldqhid[address] [place], [place] [address]Dr. Villa Yanes CBC AUTO DIFFon 08-17-2022 BASO # 0.1 103/ul Normal 0.0-0.1 [facility] Comment on above: Performed By: #### C BC ####[facility] Bycjeewpeb[address] [place] [address]Dr. Villa Yanes Basophils/100 WBC (Bld) 0.4 % Normal 0.2-2.0 [facility] Comment on above: Performed By: #### C BC ####[facility] Njucqktbdv[address] [place] [address]Dr. Villa Yanes EO # 0.1 103/ul Normal 0.0-0.7 [facility] Comment on above: Performed By: #### C BC ####[facility] Od[address]ksnwk[address] [place] [address]Dr. Villa Yanes Eosinophils/100 WBC (Bld) 0.4 % Critically low 0.9-7.0 [facility] Comment on above: Performed By: #### C BC ####[facility] Eyfcadqcld[address] [place] [address]Dr. Villa Yanes Erythrocyte distribution width (RBC) [Ratio] 12.5 % Normal 11.0-15.0 [facility] Comment on above: Performed By: #### C BC ####[facility] Fgoehpofoy[address] [place] [address]Dr. Villa Yanes Hematocrit (Bld) [Volume fraction] 37.8 % Critically low 42.0-54.0 [facility] Comment on above: Performed By: #### C BC ####[facility] Okwcxplpwn[address] [place] [address]Dr. [place]karen Yanes Hemoglobin (Bld) [Mass/Vol] 12.4 g/dL Critically low 14.0-18.0 [facility] Comment on above: Performed By: #### C BC ####[facility] Pegveexneo[address] [place] [address]Dr. Villa Yanes IG # 0.16 10e3/ul Critically high 0.00-0.03 [facility] Comment on above: Performed By: #### C BC ####[facility] Dxjoamuult[address] [place] [address]Dr. Villa Yanes IG % 1.2 % Critically high 0.0-0.5 [facility] Comment on above: Performed By: #### C BC ####[facility] Bpgrjfocen[address] [place] [address]Dr. Villa Yanes LYMPH # 1.1 103/ul Critically low 1.2-3.8 [facility] Comment on above: Performed By: #### C BC ####[facility] Bdmrnkcmvh9[address] [place] [address]Dr. Villa Yanes Lymphocytes/100 WBC (Bld) 8.0 % Critically low 20.5-60.0 [facility] Comment on above: Performed By: #### C BC ####[facility] Hffzhnzuhv[address] [place] [address]Dr. Villa Yanes MANUAL DIFF REQ NO Normal [facility] Comment on above: Performed By: #### C BC ####[facility] Cciefcqoqq[address] [place], [place] [address]DrBrenden Yanes MCH (RBC) [Entitic mass] 32.0 pg Normal 25.9-34.0 [facility] Comment on above: Performed By: #### C BC ####[facility] Kadlqbsnhs[address] [place] [id number]. Villa Yanes MCHC (RBC) [Mass/Vol] 32.8 g/dL Normal 29.9-35.2 [facility] Comment on above: Performed By: #### C BC ####[facility] Augyspxcck44[address] [place] [phone]. Villa Yanes MCV (RBC) [Entitic vol] 97.7 fL Critically high 80.0-94.0 [facility] Comment on above: Performed By: #### C BC ####[facility] Oyodtlqsst6[address] [place] [id number]. Villa Yanes MONO # 0.9 103/ul Critically high 0.3-0.8 [facility] Comment on above: Performed By: #### C BC ####[facility] Noskkwbnzd7715 [place] [phone]. [place]karen Yanes Monocytes/100 WBC (Bld) 6.4 % Normal 1.7-12.0 [facility] Comment on above: Performed By: #### C BC ####[facility] Hivxurzezv0047 [place] [phone]. Villa Yanes NEUT # 11.3 103/ul Critically high 1.4-6.5 [facility] Comment on above: Performed By: #### C BC ####[facility] Pmuapuffqy9637 [place] [phone]. Villa Joaquín Neutrophils/100 WBC (Bld) 83.6 % Critically high 43.0-75.0 [facility] Comment on above: Performed By: #### C BC ####[facility] Bbfqvgeaem1266 [place] [phone]. Villa Yanes Platelet mean volume (Bld) [Entitic vol] 9.2 fL Critically low 9.5-13.5 [facility] Comment on above: Performed By: #### C BC ####[facility] Kmmnxjaxya4328 [place] [phone]. Villa Joaquín PLT 279 103/ul Normal 150-450 [facility] Comment on above: Performed By: #### C BC ####[facility] Velveihcpd6[address] [place] [address]Dr. Villa Yanes RBC 3.87 106/ul Critically low 4.70-6.10 [facility] Comment on above: Performed By: #### C BC ####[facility] Pnbbeshyes7765 [place] [address]Dr. Villa Yanes WBC 13.6 103/ul Critically high 4.0-11.0 [facility] Comment on above: Performed By: #### C BC ####[facility] Hifamjwxhd97[address] [place], [place] [address]Dr. Villa Yanes LACTATE/LACTIC ACIDon 2022 Lactate [Moles/Vol] 1.4 mmol/L Normal 0.4-2.0 [facility] Comment on above: Performed By: #### L ACT ####[facility] Yheowkfgck[address] [place], [place] [address]Dr. Villa Yanes Lactate [Moles/Vol] 1.6 mmol/L Normal 0.4-2.0 [facility] Comment on above: Performed By: #### L ACT ####[facility] Pjvoptczfn6[address] [place], [place] [address]Dr. Villa Yanes LIPASEon 08-17-2022 Lipase [Catalytic activity/Vol] 37.0 U/L Critically low 73.0-393.0 [facility] Comment on above: Performed By: #### L IPA ####[facility] Sishzlnpki[address] [place], [place] [address]Dr. Brooklynkaren Joaquín POINT OF CARE GLUCOSEon 07-23 Glucose [Mass/Vol] 118 mg/dL Critically high 74-106 [facility] Comment on above: Performed By: #### P OCGLUC ####[facility] Ikpiulozon[address] [place], [place] [address]Dr. Villa Yanes Glucose [Mass/Vol] 124 mg/dL Critically high 74-106 [facility] Comment on above: Performed By: #### P OCGLUC ####[facility] Djawsulbfa[address] [place], [place] [address]Dr. Villa Yanes PROF 14(COMP METB)on 023 Albumin [Mass/Vol] 3.2 g/dL Critically low 3.4-5.0 [facility] Comment on above: Performed By: #### C SHALOM, HSTROPN ####[facility] Zodlhmcggz74[address] [place] [address]Dr. Villa Yanes Albumin/Globulin [Mass ratio] 1.0 {ratio} Normal [facility] Comment on above: Performed By: #### C SHALOM, HSTROPN ####[facility] Ckbldiykcg7444 [place] [address]Dr. Villa Yanes ALP [Catalytic activity/Vol] 148 U/L Critically high 46-116 [facility] Comment on above: Performed By: #### C SHALOM, HSTROPN ####[facility] Omwdrzjcyx4719 [place] [address]Dr. Villa Yanes ALT [Catalytic activity/Vol] 11 U/L Critically low 16-63 [facility] Comment on above: Performed By: #### C SHALOM, HSTROPN ####[facility] Euemmihfse[address] [place], [place] [address]Dr. Villa Yanes Anion gap [Moles/Vol] 14.2 mmol/L Normal [facility] Comment on above: Performed By: #### C SHALOM, HSTROPN ####[facility] Uvrufbgqtx7[address] [place], [place] [address]Dr. Villa Yanes AST [Catalytic activity/Vol] 9 U/L Critically low 15-37 [facility] Comment on above: Performed By: #### C SHALOM HSTROPN ####[facility] Aarxdmincf[address] [place], [place] [address]Dr. Villa Yanes Bilirubin [Mass/Vol] 0.4 mg/dL Normal 0.2-1.0 [facility] Comment on above: Performed By: #### C SHALOM, HSTROPN ####[facility] Svadafyuca[address] [place], [place] [address]Dr. Villa Yanes Calcium [Mass/Vol] 9.3 mg/dL Normal 8.5-10.1 [facility] Comment on above: Performed By: #### C MP, HSTROPN ####[facility] Leuvxyhpys[address] [place] [address]Dr. Villa Yanes Chloride [Moles/Vol] 104 mmol/L Normal 98-107 [facility] Comment on above: Performed By: #### C MP, HSTROPN ####[facility] Ubwbeutflk8946 [place] [address]Dr. Villa Yanes CO2 [Moles/Vol] 27.5 mmol/L Normal 21.0-32.0 [facility] Comment on above: Performed By: #### C MP, HSTROPN ####[facility] Mdsewwunqh1875 [place] [address]Dr. Villa Yanes Creatinine [Mass/Vol] 1.11 mg/dL Normal 0.70-1.30 [facility] Comment on above: Performed By: #### C MP, HSTROPN ####[facility] Pvxscaiomd[address] [place], [place] [address]Dr. Villa Yanes EGFR-AF RUSSIAN >60 Normal >=60 [facility] Comment on above: Performed By: #### C MP, HSTROPN ####[facility] Nhgvyeulqg[address] [place], [place] [address]Dr. Villa Yanes EGFR-NON AF RUSSIAN >60 Normal >=60 [facility] Comment on above: Performed By: #### C MP, HSTROPN ####[facility] Xgtrppartt86[address] [place] [address]Dr. Villa Yanes Globulin (S) [Mass/Vol] 3.2 g/dL Normal [facility] Comment on above: Performed By: #### C MP, HSTROPN ####[facility] Cxqulbfyta7340 [place] [address]Dr. Villa Yanes Glucose [Mass/Vol] 163 mg/dL Critically high 74-106 [facility] Comment on above: Performed By: #### C MP, HSTROPN ####[facility] Eglnvvagca4[address] [place] [address]Dr. Villa Yanes Potassium [Moles/Vol] 3.7 mmol/L Normal 3.5-5.1 [facility] Comment on above: Performed By: #### C SHALOM, HSTROPN ####[facility] Odjcxenuzh0454 [place] [address]Dr. Villa Yanes Protein [Mass/Vol] 6.4 g/dL Normal 6.4-8.2 [facility] Comment on above: Performed By: #### C SHALOM, HSTROPN ####[facility] Kptdbcgznv[address] [place], [place] [address]Dr. Villa Yanes Sodium [Moles/Vol] 142 mmol/L Normal 136-145 [facility] Comment on above: Performed By: #### C SHALOM, HSTROPN ####[facility] Dgyynbwecs8[address] [place], [place] [address]Dr. Villa Yanes Urea nitrogen [Mass/Vol] 23.0 mg/dL Critically high 7.0-18.0 [facility] Comment on above: Performed By: #### C SHALOM, HSTROPN ####[facility] Drfycekhdn6[address] [place], [place] [address]Dr. Villa Yanes Urea nitrogen/Creatinine [Mass ratio] 20.7 mg/mg Normal [facility] Comment on above: Performed By: #### C SHALOM HSTROPN ####[facility] Osulngqvgh[address] [place], [place] [address]Dr. Villa Yanes RESPIRATORY PANEL PLUSon Adenovirus Not detected Normal NOT DETECTED [facility] Comment on above: Performed By: #### R SPLUS ####[facility] Edkfsfljxe[address] [place], [place] [address]Dr. Villa Yanes B. Parapertusis Not detected Normal NOT DETECTED [facility] Comment on above: Performed By: #### R SPLUS ####[facility] Vijkhzzrvb[address] [place], [place] [address]Dr. Villa Yanes B. Pertussis Not detected Normal NOT DETECTED [facility] Comment on above: Performed By: #### R SPLUS ####[facility] Xpevsvfcnh24[address] [place], [place] [address]Dr. Villa Yanes Chlamydia Pneumoniae Not detected Normal NOT DETECTED [facility] Comment on above: Performed By: #### R SPLUS ####[facility] Agrgryhwke74[address] [place] [address]Dr. Villa [facility] Coronavirus 229E Not detected Normal NOT DETECTED [facility] Comment on above: Performed By: #### R SPLUS ####[facility] Yttmlgoqgu5[address] [place], [place] [address]Dr. Villa [facility] Coronavirus HKU1 Not detected Normal NOT DETECTED [facility] Comment on above: Performed By: #### R SPLUS ####[facility] Usmnnvdekp92[address] [place], [place] [address]Dr. Villa [facility] Coronavirus NL63 Not detected Normal NOT DETECTED [facility] Comment on above: Performed By: #### R SPLUS ####[facility] Wudfvwsxtp1801[address] [place], [place] [address]Dr. [facility] Coronavirus OC43 Not detected Normal NOT DETECTED [facility] Comment on above: Performed By: #### R SPLUS ####[facility] Jrtcbkdvfn8[address] [place], [place] [address]Dr. Yikaren Yanes Influenza A H1 Not detected Normal NOT DETECTED [facility] Comment on above: Performed By: #### R SPLUS ####[facility] Oksmyczwhu[address] [place], [place] [address]Dr. Villa Yanes Influenza A H1 2009 Not detected Normal NOT DETECTED [facility] Comment on above: Performed By: #### R SPLUS ####[facility] Eezggjsjwg2289[address] [place], [place] [address]Dr. Yikaren Yanes Influenza A H3 Not detected Normal NOT DETECTED [facility] Comment on above: Performed By: #### R SPLUS ####[facility] Czyneubftp[address] [place], [place] [address]Dr. Yikaren Yanes Influenza B Not detected Normal NOT DETECTED [facility] Comment on above: Performed By: #### R SPLUS ####[facility] Fmiokpxzkh265[address] [place], [place] [address]Dr. Yikaren Yanes Metapneumovirus Not detected Normal NOT DETECTED [facility] Comment on above: Performed By: #### R SPLUS ####[facility] Rxhfoyghpq8334 [place] [address]Dr. Villa Yanes Mycoplas. Pneumoniae Not detected Normal NOT DETECTED [facility] Comment on above: Performed By: #### R SPLUS ####[facility] Etjuxrldog34[address] [place], [place] [address]Dr. Yikaren Yanes Parainfluenza 1 Not detected Normal NOT DETECTED [facility] Comment on above: Performed By: #### R SPLUS ####[facility] Zezknfloyx6706[address] [place], [place] [address]Dr. Yikaren Yanes Parainfluenza 2 Not detected Normal NOT DETECTED [facility] Comment on above: Performed By: #### R SPLUS ####[facility] Czpxzlapdi16[address] [place], [place] [address]Dr. Villa Yanes Parainfluenza 3 Not detected Normal NOT DETECTED [facility] Comment on above: Performed By: #### R SPLUS ####[facility] Lshrmoqyzd13[address] [place], [place] [address]Dr. Yikaren Yanes Parainfluenza 4 Not detected Normal NOT DETECTED [facility] Comment on above: Performed By: #### R SPLUS ####[facility] Kykcunhdee88[address] [place], [place] [address]Dr. Yilan Yanes Rhino/Enterovirus Not detected Normal NOT DETECTED [facility] Comment on above: Performed By: #### R SPLUS ####[facility] Ezbxvumvej70[address] [place], [place] [address]Dr. Yikaren Yanes RP2 Header 1 RESPIRATORY PANEL: VIRUSES Normal [facility] Comment on above: Performed By: #### R SPLUS ####[facility] Gtusdbefki[address] [place], [place] [address]Dr. Yilan Yanes RP2 Header 2 RESPIRATORY PANEL: BACTERIA Normal [facility] Comment on above: Performed By: #### R SPLUS ####[facility] Amyqekjbud8[address] [place], [place] [address]Dr. Yilan Yanes RSV Not detected Normal NOT DETECTED [facility] Comment on above: Performed By: #### R SPLUS ####[facility] Ibumplocxt9749 [place], [place] [address]Vv. Villa Yanes SARS-CoV-2 (COVID-19) RNA SHELLY+probe Ql (Unsp spec) Not detected Normal NOT DETECTED The [facility] Comment on above: Performed By: #### R SPLUS ####[facility] [address] [place], [place] [address]Au. Villa Yanes TROPONIN, HIGH SENSITIVITYon 08-17-2022 HSTROP 9.7 pg/mL Normal 4.0-76.1 [facility] Comment on above: Result Comment: CUT- OFF POINTS HAVE BEEN ESTABLISHED BASED ON THE FOURTH UNIVERSAL DEFINITIONS OF MYOCARDIALINFARCTION. THE UPPER REFERENCE LIMIT (URL) OF TROPONIN, DEFINED THE 99TH PERCENTILE OFcTnI DISTRIBUTION IN A REFERENCE POPULATION, HAS BEEN CONFIRMED THE DECISION THRESHOLDFOR SD DIAGNOSIS. Performed By: #### C MP, HSTROPN ####[facility] [address] [place], [place] [address]Dc. 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 You may also call 4-530-SUUE-NOW for free resources and assistance.; Status:Complete - [...] ago when he had a non-ST elevation SD associated with pneumonia, and initial ejection fraction [...] Percutaneous endoscopic gastrostomy tube insertion History of HAM SAWYER femoral-popliteal History of Urinary catheter placement Current [...] no hobson (more content not included)... Normal [employer] Tobacco Screening.on 023 Adult depression screening assessment No [facility] [employer] DO Work Phone: Fall risk assessment b) One or more fall s in the last year [facility] [employer] DO Work Phone: Tobacco use status CPHS a) Yes [facility] [employer] DO Work Phone: XR ABD FLAT_UPon 07-31-2022 XR ABD FLAT_UP Normal [facility] AMMONIAon 07-30-2022 Ammonia (P) [Moles/Vol] 10 umol/L Critically low 11-32 [facility] Comment on above: Performed By: #### A MM ####[facility] Bxoiollfui[address] [place], [place] [address]Dr. Villa Yanes AMYLASEon 07-30-2022 Amylase [Catalytic activity/Vol] 36 U/L Normal 25-115 [facility] Comment on above: Performed By: #### L IPA, TSH, CANDIE, T7, CMP ####[facility] Eihpgsaxgw[address] [place], [place] [address]Dr. Villa Yanes CBC AUTO DIFFon 07-30-2022 BASO # 0.1 103/ul Normal 0.0-0.1 [facility] Comment on above: Performed By: #### C BC ####[facility] Gdyicofiq[address] [place], [place] [address]Dr. Villa Yanes Basophils/100 WBC (Bld) 0.7 % Normal 0.2-2.0 [facility] Comment on above: Performed By: #### C BC ####[facility] Jrjfpdensl[address] [place], [place] [address]Dr. Villa Yanes EO # 0.0 103/ul Normal 0.0-0.7 [facility] Comment on above: Performed By: #### C BC ####[facility] Ejkdxkydsr[address] [place], [place] [address]Dr. Villa Yanes Eosinophils/100 WBC (Bld) 0.3 % Critically low 0.9-7.0 [facility] Comment on above: Performed By: #### C BC ####[facility] Wogbamdbdb[address] [place], [place] [address]Dr. Villa Yanes Erythrocyte distribution width (RBC) [Ratio] 13.1 % Normal 11.0-15.0 [facility] Comment on above: Performed By: #### C BC ####[facility] Echfvspurj[address] [place], [place] [address]Dr. Brooklynkaren Yanes Hematocrit (Bld) [Volume fraction] 41.2 % Critically low 42.0-54.0 [facility] Comment on above: Performed By: #### C BC ####[facility] Eyjnck[address]jnw[address] [place] [id number]. Villa Yanes Hemoglobin (Bld) [Mass/Vol] 13.7 g/dL Critically low 14.0-18.0 [facility] Comment on above: Performed By: #### C BC ####[facility] Qkwp[address]tjj4[address] [place] [id number]. Villa Yanes IG # 0.41 10e3/ul Critically high 0.00-0.03 [facility] Comment on above: Performed By: #### C BC ####[facility] Ysimtykpca7[address] [place] [address]Dr. Villa Yanes IG % 2.8 % Critically high 0.0-0.5 [facility] Comment on above: Performed By: #### C BC ####[facility] Gmgteccohj[address] [place], [place] [address]Dr. Villa Yanes LYMPH # 1.7 103/ul Normal 1.2-3.8 [facility] Comment on above: Performed By: #### C BC ####[facility] Koqazhause8[address] [place], [place] [address]Dr. Villa Yanes Lymphocytes/100 WBC (Bld) 11.4 % Critically low 20.5-60.0 [facility] Comment on above: Performed By: #### C BC ####[facility] F[address]os[address]25[address] [place] [address]Dr. Villa Yanes MANUAL DIFF REQ NO Normal [facility] Comment on above: Performed By: #### C BC ####[facility] Flyxphzzav[address] [place], [place] [address]Dr. Villa Yanes MCH (RBC) [Entitic mass] 31.9 pg Normal 25.9-34.0 [facility] Comment on above: Performed By: #### C BC ####[facility] Erdekqvzff027[address] [place], [place] [address]Dr. Villa Yanes MCHC (RBC) [Mass/Vol] 33.3 g/dL Normal 29.9-35.2 [facility] Comment on above: Performed By: #### C BC ####[facility] Zdmwkjgcqi6[address] [place] [id number]. Villa Yanes MCV (RBC) [Entitic vol] 96.0 fL Critically high 80.0-94.0 [facility] Comment on above: Performed By: #### C BC ####[facility] Qxbafnodou0527 [place] [id number]. Villa Yanes MONO # 0.9 103/ul Critically high 0.3-0.8 [facility] Comment on above: Performed By: #### C BC ####[facility] Fwkcnvjdvu0451 [place] [id number]. Villa Yanes Monocytes/100 WBC (Bld) 6.4 % Normal 1.7-12.0 [facility] Comment on above: Performed By: #### C BC ####[facility] Yflfixkglp95[address] [place], [place] [address]Dr. Villa Yanes NEUT # 11.6 103/ul Critically high 1.4-6.5 [facility] Comment on above: Performed By: #### C BC ####[facility] Ukqqshhthx[address] [place], [place] [address]Dr. Villa Yanes Neutrophils/100 WBC (Bld) 78.4 % Critically high 43.0-75.0 [facility] Comment on above: Performed By: #### C BC ####[facility] Jznydxolae63[address] [place], [place] [address]Dr. Villa Yanes Platelet mean volume (Bld) [Entitic vol] 9.2 fL Critically low 9.5-13.5 [facility] Comment on above: Performed By: #### C BC ####[facility] Qqeztrrqzt0249 [place] [phone]. Villa Yanes PLT 368 103/ul Normal 150-450 [facility] Comment on above: Performed By: #### C BC ####[facility] Nvxsyzlmku[address] [place], [place] [address]Dr. Villa Joaquín RBC 4.29 106/ul Critically low 4.70-6.10 [facility] Comment on above: Performed By: #### C BC ####[facility] Xzkfqkcuhb5614 [place] [id number]. Villa Yanes WBC 14.8 103/ul Critically high 4.0-11.0 [facility] Comment on above: Performed By: #### C BC ####[facility] Mgnkaxuknq5464 [place] [phone]. Villa Yanes [facility]on SARS-CoV-2 (COVID-19) RNA SHELLY+probe Ql (Unsp spec) Not detected Normal NOT DETECTED [facility] Comment on above: Result Comment: [...] for this test is supported by the [place] of Health and Human Service's declaration that [...] be used). Performed By: #### C VDTBH ####[facility] T[address]cvfxzne70[address] [place] [address]Dr. Villa Yanes FREE THYROXINE INDEX T7on FTI 2.55 Normal 1.30-4.50 [facility] Comment on above: Performed By: #### L IPA, TSH, CANDIE, T7, CMP ####[facility] Mkblsgrzcu[address] [place], [place] [address]Dr. Villa Yanes T3U 38.0 % Normal 33.0-40.0 [facility] Comment on above: Performed By: #### L IPA, TSH, CANDIE, T7, CMP ####[facility] [address]vkw[address]y6[address] [place] [id number]. Villa Yanes T4 [Mass/Vol] 6.70 ug/dL Normal 4.50-12.10 [facility] Comment on above: Performed By: #### L IPA, TSH, CANDIE, T7, CMP ####[facility] Pmugolvila[address] [place], [place] [address]Dr. Villa Yanes INFLUENZA A AND B AGon 07-30 INFLUANEGH SEE BELOW Normal [facility] Comment on above: Result Comment: Nega tive for Flu A protein angiten. Infection due to Flu A cannot be ruled out. Flu A angiten in the sample may be below the detection limit of the test. Performed By: #### I NFLUAB ####[facility] S[address] [place] [address]. Villa Yanes INFLUBNEGH SEE BELOW Normal [facility] Comment on above: Result Comment: Nega tive for Flu B protein antigen. Infection due to Flu B cannot be ruled out. Flu B antigen in the sample may be below the detection limit of the test. Performed By: #### I NFLUAB ####[facility] Ouhlsiogvs[address] [place], [place] [address]Dr. Villa [facility] INFLUENZA A AG Negative Normal NEGATIVE SEE COMMENT [facility] Comment on above: Performed By: #### I NFLUAB ####[facility] Lns[address]qmodi[address] [place] [address]. Villa Yanes INFLUENZA B AG Negative Normal NEGATIVE SEE COMMENT [facility] Comment on above: Performed By: #### I NFLUAB ####[facility] Xkxqwnkily[address] [place], [place] [address]Dr. Villa Yanes IRONon 07-30-2022 Iron [Mass/Vol] 44.0 ug/dL Critically low 65.0-175.0 [facility] Comment on above: Performed By: #### I JOSE ####[facility] Dhtdlbbndk7[address] [place], [place] [address]Dr. Villa Yanes LIPASEon 07-30-2022 Lipase [Catalytic activity/Vol] 44.0 U/L Critically low 73.0-393.0 [facility] Comment on above: Performed By: #### L IPA, TSH, CANDIE, T7, CMP ####[facility] T[address]fzncru[address] [place] [address]Dr. Villa Yanes PROF 14(COMP METB)on 023 Albumin [Mass/Vol] 3.3 g/dL Critically low 3.4-5.0 [facility] Comment on above: Performed By: #### L IPA, TSH, CANDIE, T7, CMP ####[facility] Eshokadvet[address] [place], [place] [address]Dr. Villa Yanes Albumin/Globulin [Mass ratio] 0.9 {ratio} Normal [facility] Comment on above: Performed By: #### L IPA, TSH, CANDIE, T7, CMP ####[facility] Hskigpcmkj24[address] [place], [place] [address]Dr. Villa Yanes ALP [Catalytic activity/Vol] 163 U/L Critically high 46-116 [facility] Comment on above: Performed By: #### L IPA, TSH, CANDIE, T7, CMP ####[facility] Unccidvhaf[address] [place], [place] [address]Dr. Villa Yanes ALT [Catalytic activity/Vol] 10 U/L Critically low 16-63 [facility] Comment on above: Performed By: #### L IPA, TSH, CANDIE, T7, CMP ####[facility] Wfcvvmzzun04[address] [place], [place] [address]Dr. Villa Yanes Anion gap [Moles/Vol] 13.1 mmol/L Normal [facility] Comment on above: Performed By: #### L IPA, TSH, CANDIE, T7, CMP ####[facility] Oocqgdplck[address] [place], [place] [address]Dr. Villa Yanes AST [Catalytic activity/Vol] 12 U/L Critically low 15-37 [facility] Comment on above: Performed By: #### L IPA, TSH, CANDIE, T7, CMP ####[facility] Fvfablewqu[address] [place], [place] [address]Dr. Villa Yanes Bilirubin [Mass/Vol] 0.4 mg/dL Normal 0.2-1.0 [facility] Comment on above: Performed By: #### L IPA, TSH, CANDIE, T7, CMP ####[facility] Psbzzvfjmo99[address] [place] [address]Dr. Villa Yanes Calcium [Mass/Vol] 9.8 mg/dL Normal 8.5-10.1 [facility] Comment on above: Performed By: #### L IPA, TSH, CANDIE, T7, CMP ####[facility] Wpgvmjdojd[address] [place], [place] [address]Dr. Villa Yanes Chloride [Moles/Vol] 106 mmol/L Normal 98-107 [facility] Comment on above: Performed By: #### L IPA, TSH, CANDIE, T7, CMP ####[facility] Xfjarrpohe[address] [place], [place] [address]Dr. Villa Yanes CO2 [Moles/Vol] 27.3 mmol/L Normal 21.0-32.0 [facility] Comment on above: Performed By: #### L IPA, TSH, CANDIE, T7, CMP ####[facility] Kuiqfoxlni13[address] [place], [place] [address]Dr. Villa Yanes Creatinine [Mass/Vol] 1.23 mg/dL Normal 0.70-1.30 [facility] Comment on above: Performed By: #### L IPA, TSH, CANDIE, T7, CMP ####[facility] Lriamjukru[address] [place], [place] [address]Dr. Villa Yanes EGFR-AF RUSSIAN >60 Normal >=60 [facility] Comment on above: Performed By: #### L IPA, TSH, CANDIE, T7, CMP ####[facility] Ifuyycifqi[address] [place], [place] [address]Dr. Villa Yanes EGFR-NON AF RUSSIAN 57 mL/min/1.73m2 Critically low >=60 [facility] Comment on above: Performed By: #### L IPA, TSH, CANDIE, T7, CMP ####[facility] Rjpcwolnwl[address] [place], [place] [address]Dr. Villa Yanes Globulin (S) [Mass/Vol] 3.7 g/dL Normal [facility] Comment on above: Performed By: #### L IPA, TSH, CANDIE, T7, CMP ####[facility] [address]mrtfmlvnv6[address] [place] [address]Dr. Villa Yanes Glucose [Mass/Vol] 155 mg/dL Critically high 74-106 T [facility] Comment on above: Performed By: #### L IPA, TSH, CANDIE, T7, CMP ####[facility] Dmhympbtug[address] [place], [place] [address]Dr. Villa Yanes Potassium [Moles/Vol] 4.4 mmol/L Normal 3.5-5.1 [facility] Comment on above: Performed By: #### L IPA, TSH, CANDIE, T7, CMP ####[facility] Ploztwfuqe[address] [place], [place] [address]Dr. Villa Yanes Protein [Mass/Vol] 7.0 g/dL Normal 6.4-8.2 [facility] Comment on above: Performed By: #### L IPA, TSH, CANDIE, T7, CMP ####[facility] Kosrskvsfz[address] [place], [place] [address]Dr. Villa Yanes Sodium [Moles/Vol] 142 mmol/L Normal 136-145 [facility] Comment on above: Performed By: #### L IPA, TSH, CANDIE, T7, CMP ####[facility] Xatztfzobf[address] [place], [place] [address]Dr. Villa Yanes Urea nitrogen [Mass/Vol] 25.0 mg/dL Critically high 7.0-18.0 [facility] Comment on above: Performed By: #### L IPA, TSH, CANDIE, T7, CMP ####[facility] Vexoultbgy[address] [place], [place] [address]Dr. Villa Yanes Urea nitrogen/Creatinine [Mass ratio] 20.3 mg/mg Normal [facility] Comment on above: Performed By: #### L IPA, TSH, CANDIE, T7, CMP ####[facility] Ohzhrfrltu7[address] [place], [place] [address]Dr. Villa Yanes TSHon 07-30-2022 TSH 0.259 uIU/mL Critically low 0.358-3.740 [facility] Comment on above: Performed By: #### L IPA, TSH, CANDIE, T7, CMP ####[facility] T[address]ipdrwjv53[address] [place] [address]Dr. Villa Joaquín XR CHEST 2 Von 07-30-2022 XR CHEST 2 V Normal [facility] CBC AUTO DIFFon 07-01-2022 BASO # 0.0 103/ul Normal 0.0-0.1 [facility] Comment on above: Performed By: #### C BC ####[facility] Oedjtfmkew[address] [place] [address]Dr. Villa Yanes Basophils/100 WBC (Bld) 0.1 % Critically low 0.2-2.0 [facility] Comment on above: Performed By: #### C BC ####[facility] Dyzrdhclmu14[address] [place], [place] [address]Dr. Villa Yanes EO # 0.1 103/ul Normal 0.0-0.7 [facility] Comment on above: Performed By: #### C BC ####[facility] Lxfnkwzqen[address] [place], [place] [address]Dr. Villa Yanes Eosinophils/100 WBC (Bld) 0.5 % Critically low 0.9-7.0 [facility] Comment on above: Performed By: #### C BC ####[facility] Kprwiovnxp[address] [place], [place] [address]Dr. Villa Yanes Erythrocyte distribution width (RBC) [Ratio] 12.7 % Normal 11.0-15.0 [facility] Comment on above: Performed By: #### C BC ####[facility] Ecpukxbpam[address] [place], [place] [address]Dr. Villa Yanes Hematocrit (Bld) [Volume fraction] 37.6 % Critically low 42.0-54.0 [facility] Comment on above: Performed By: #### C BC ####[facility] Skqzttnoew[address] [place], [place] [address]Dr. Villa Yanes Hemoglobin (Bld) [Mass/Vol] 12.2 g/dL Critically low 14.0-18.0 [facility] Comment on above: Performed By: #### C BC ####[facility] Cfohrsccqs[address] [place], [place] [address]Dr. Villa Yanes IG # 0.10 10e3/ul Critically high 0.00-0.03 [facility] Comment on above: Performed By: #### C BC ####[facility] W[address]zkjufan[address] [place] [address]DrBrenden Villa Joaqíun IG % 1.0 % Critically high 0.0-0.5 [facility] Comment on above: Performed By: #### C BC ####[facility] Rdxdrfhvcs[address] [place] [address]DrBrenden Villa Joaquín LYMPH # 1.4 103/ul Normal 1.2-3.8 [facility] Comment on above: Performed By: #### C BC ####[facility] Doousfduvn3226 [place] [address]DrBrenden Yanes Lymphocytes/100 WBC (Bld) 13.5 % Critically low 20.5-60.0 [facility] Comment on above: Performed By: #### C BC ####[facility] Wilinjixru[address] [place], [place] [address]DrBrenden Brooklynkaren Yanes MANUAL DIFF REQ NO Normal [facility] Comment on above: Performed By: #### C BC ####[facility] Itxgtdjdpf9839 [place] [address]DrBrenden Villa Joaquín MCH (RBC) [Entitic mass] 32.7 pg Normal 25.9-34.0 [facility] Comment on above: Performed By: #### C BC ####[facility] Uskctwtyou57[address] [place] [address]DrBrenden Villa Joaquín MCHC (RBC) [Mass/Vol] 32.4 g/dL Normal 29.9-35.2 [facility] Comment on above: Performed By: #### C BC ####[facility] Udusudbqel44[address] [place] [address]DrBrenden Yanes MCV (RBC) [Entitic vol] 100.8 fL Critically high 80.0-94.0 [facility] Comment on above: Performed By: #### C BC ####[facility] Kvayymjndu[address] [place], [place] [address]DrBrenden Yanes MONO # 0.8 103/ul Normal 0.3-0.8 [facility] Comment on above: Performed By: #### C BC ####[facility] Fzyvcageub47[address] [place] [address]Dr. Villa Yanes Monocytes/100 WBC (Bld) 7.9 % Normal 1.7-12.0 [facility] Comment on above: Performed By: #### C BC ####[facility] Mflgwowbgd13[address] [place] [address]Dr. Villa Yanes NEUT # 7.9 103/ul Critically high 1.4-6.5 [facility] Comment on above: Performed By: #### C BC ####[facility] Uwgnmkobyy38[address] [place] [address]Dr. Villa Yanes Neutrophils/100 WBC (Bld) 77.0 % Critically high 43.0-75.0 [facility] Comment on above: Performed By: #### C BC ####[facility] Whvkeafpas[address] [place], [place] [address]Dr. Villa Yanes Platelet mean volume (Bld) [Entitic vol] 10.1 fL Normal 9.5-13.5 [facility] Comment on above: Performed By: #### C BC ####[facility] Vrfxhclyjz[address] [place], [place] [address]Dr. Villa Yanes PLT 196 103/ul Normal 150-450 [facility] Comment on above: Performed By: #### C BC ####[facility] Phademukfg[address] [place] [address]Dr. Villa Yanes RBC 3.73 106/ul Critically low 4.70-6.10 [facility] Comment on above: Performed By: #### C BC ####[facility] Pldrkddnud7[address] [place] [address]Dr. Villa Yanes WBC 10.3 103/ul Normal 4.0-11.0 [facility] Comment on above: Performed By: #### C BC ####[facility] Uxsvhheuug16[address] [place] [address]Dr. Villa Yanes CRPon 07-01-2022 CRP 0.8 mg/dL Normal <=1.0 [facility] Comment on above: Performed By: #### B MP, CRP ####[facility] Hwvvfyxcyn4[address] [place] [address]Dr. Villa Yanes PROF CHEM 8 (BAS METB)on Anion gap [Moles/Vol] 12.1 mmol/L Normal [facility] Comment on above: Performed By: #### B MP, CRP ####[facility] Ojhnqxuzsc2[address] [place], [place] [address]Dr. Villa Yanes Calcium [Mass/Vol] 9.2 mg/dL Normal 8.5-10.1 [facility] Comment on above: Performed By: #### B MP, CRP ####[facility] Uaafyrtuxh[address] [place], [place] [address]Dr. Villa Yanes Chloride [Moles/Vol] 105 mmol/L Normal 98-107 [facility] Comment on above: Performed By: #### B MP, CRP ####[facility] Toacrbzblg8347[address] [place], [place] [address]Dr. Villa Yanes CO2 [Moles/Vol] 26.8 mmol/L Normal 21.0-32.0 [facility] Comment on above: Performed By: #### B MP, CRP ####[facility] Zqwplgnrfw46[address] [place], [place] [address]Dr. Villa Yanes Creatinine [Mass/Vol] 1.11 mg/dL Normal 0.70-1.30 [facility] Comment on above: Performed By: #### B MP, CRP ####[facility] Sgabcfvrae[address] [place], [place] [address]Dr. Villa Yanes EGFR-AF RUSSIAN >60 Normal >=60 [facility] Comment on above: Performed By: #### B MP, CRP ####[facility] Zmtultccop58[address] [place], [place] [address]Dr. Villa Yanes EGFR-NON AF RUSSIAN >60 Normal >=60 [facility] Comment on above: Performed By: #### B MP, CRP ####[facility] Snlxbjdqcv75[address] [place], [place] [address]Dr. Villa Yanes Glucose [Mass/Vol] 136 mg/dL Critically high 74-106 T [facility] Comment on above: Performed By: #### B MP, CRP ####[facility] Jcflckwmwm[address] [place], [place] [address]Dr. Villa Yanes Potassium [Moles/Vol] 3.9 mmol/L Normal 3.5-5.1 [facility] Comment on above: Performed By: #### B MP, CRP ####[facility] Fxodohwohr[address] [place], [place] [address]Dr. Villa Joaquín Sodium [Moles/Vol] 140 mmol/L Normal 136-145 [facility] Comment on above: Performed By: #### B MP, CRP ####[facility] Kxuzwucczq[address] [place], [place] [address]Dr. Villa Joaquín Urea nitrogen [Mass/Vol] 28.0 mg/dL Critically high 7.0-18.0 [facility] Comment on above: Performed By: #### B MP, CRP ####[facility] Alqukvligu[address] [place], [place] [address]Dr. Villa Joaquín Urea nitrogen/Creatinine [Mass ratio] 25.2 mg/mg Normal [facility] Comment on above: Performed By: #### B MP, CRP ####[facility] Dyhttobsyq[address] [place], [place] [address]Dr. Villa Joaquín SED RATE WESTERGRENon 2022 SED RATE 32 mm/hr Critically high <=20 [facility] Comment on above: Performed By: #### S EDR ####[facility] Avntwyhpew[address] [place], [place] [address]Dr. Villa Joaquín XR LSPINE 2_3 VIEWSon 2022 XR LSPINE 2_3 VIEWS Normal [facility] CBC AUTO DIFFon 06-29-2022 BASO # 0.0 103/ul Normal 0.0-0.1 [facility] Comment on above: Performed By: #### C BC ####[facility] Trwdzvglap[address] [place], [place] [address]Dr. Villa Yanes Basophils/100 WBC (Bld) 0.1 % Critically low 0.2-2.0 [facility] Comment on above: Performed By: #### C BC ####[facility] P[address]qycpawt[address] [place] [address]DrBrenden Yanes EO # 0.0 103/ul Normal 0.0-0.7 [facility] Comment on above: Performed By: #### C BC ####[facility] Ylwrukgduy[address] [place], [place] [address]DrBrenden Yanes Eosinophils/100 WBC (Bld) 0.0 % Critically low 0.9-7.0 [facility] Comment on above: Performed By: #### C BC ####[facility] Gctsywfgos[address] [place], [place] [address]DrBrenden Yanes Erythrocyte distribution width (RBC) [Ratio] 12.6 % Normal 11.0-15.0 [facility] Comment on above: Performed By: #### C BC ####[facility] Lzanjqvcuo[address] [place], [place] [address]DrBrenden Yanes Hematocrit (Bld) [Volume fraction] 31.6 % Critically low 42.0-54.0 [facility] Comment on above: Performed By: #### C BC ####[facility] Tyddclxssc7[address] [place], [place] [address]DrBrenden Yanes Hemoglobin (Bld) [Mass/Vol] 10.1 g/dL Critically low 14.0-18.0 [facility] Comment on above: Performed By: #### C BC ####[facility] Jfljfrlaua[address] [place], [place] [address]DrBrenden Yanes IG # 0.10 10e3/ul Critically high 0.00-0.03 [facility] Comment on above: Performed By: #### C BC ####[facility] Wptqesfkid5[address] [place], [place] [address]DrBrenden Yanes IG % 0.9 % Critically high 0.0-0.5 [facility] Comment on above: Performed By: #### C BC ####[facility] Wyvzzhiurg40[address] [place], [place] [address]DrBrenden Yanes LYMPH # 0.3 103/ul Critically low 1.2-3.8 [facility] Comment on above: Performed By: #### C BC ####[facility] Vcltdozovb036[address] [place] [address]DrBrenden Yanes Lymphocytes/100 WBC (Bld) 2.5 % Critically low 20.5-60.0 [facility] Comment on above: Performed By: #### C BC ####[facility] Ggvgxoagkm51[address] [place], [place] [address]DrBrenden Yanes MANUAL DIFF REQ NO Normal [facility] Comment on above: Performed By: #### C BC ####[facility] Qqspvsivsl3694[address] [place], [place] [address]DrBrenden Yanes MCH (RBC) [Entitic mass] 32.1 pg Normal 25.9-34.0 [facility] Comment on above: Performed By: #### C BC ####[facility] Pykhemayvt2316[address] [place], [place] [address]DrBrenden Yanes MCHC (RBC) [Mass/Vol] 32.0 g/dL Normal 29.9-35.2 [facility] Comment on above: Performed By: #### C BC ####[facility] Gcsmcsuzan[address] [place], [place] [address]DrBrenden Yanes MCV (RBC) [Entitic vol] 100.3 fL Critically high 80.0-94.0 [facility] Comment on above: Performed By: #### C BC ####[facility] Mmibojavoo44[address] [place], [place] [address]DrBrenden Yanes MONO # 0.2 103/ul Critically low 0.3-0.8 [facility] Comment on above: Performed By: #### C BC ####[facility] Zmridpevbm7695[address] [place], [place] [address]DrBrenden Yanes Monocytes/100 WBC (Bld) 1.8 % Normal 1.7-12.0 [facility] Comment on above: Performed By: #### C BC ####[facility] Ewfbltzufc3059[address] [place], [place] [address]DrBrenden Yanes NEUT # 10.8 103/ul Critically high 1.4-6.5 [facility] Comment on above: Performed By: #### C BC ####[facility] Egxsoxqovs4186 [place] [address]DrBrenden Yanes Neutrophils/100 WBC (Bld) 94.7 % Critically high 43.0-75.0 [facility] Comment on above: Performed By: #### C BC ####[facility] Mcnjwkzxee24[address] [place] [address]Dr. Villa Yanes Platelet mean volume (Bld) [Entitic vol] 10.1 fL Normal 9.5-13.5 [facility] Comment on above: Performed By: #### C BC ####[facility] Vjhpykbewa6284[address] [place], [place] [address]DrBrenden Yanes PLT 200 103/ul Normal 150-450 [facility] Comment on above: Performed By: #### C BC ####[facility] Ufofbmyasj3284[address] [place], [place] [address]DrBrenden Yanes RBC 3.15 106/ul Critically low 4.70-6.10 [facility] Comment on above: Performed By: #### C BC ####[facility] Cslqhlxffq0256[address] [place], [place] [address]DrBrenden Yanes WBC 11.4 103/ul Critically high 4.0-11.0 [facility] Comment on above: Performed By: #### C BC ####[facility] Rrpozhralt[address] [place], [place] [address]DrBrenden Yanes POINT OF CARE GLUCOSEon Glucose [Mass/Vol] 225 mg/dL Critically high 74-106 T [facility] Comment on above: Performed By: #### P OCGLUC ####[facility] Fbxruxwais8574[address] [place], [place] [address]DrBrenden Yanes PROF CHEM 8 (BAS METB)on Anion gap [Moles/Vol] 15.6 mmol/L Normal [facility] Comment on above: Performed By: #### B MP ####[facility] Hbsqqgecua6064[address] [place], [place] [address]Dr. Villa Yanes Calcium [Mass/Vol] 8.6 mg/dL Normal 8.5-10.1 [facility] Comment on above: Performed By: #### B MP ####[facility] Lgbskmrvjr10[address] [place] [address]Dr. Villa Yanes Chloride [Moles/Vol] 106 mmol/L Normal 98-107 [facility] Comment on above: Performed By: #### B MP ####[facility] Lgnjdmhdkq2579 [place] [address]Dr. Villa Yanes CO2 [Moles/Vol] 22.6 mmol/L Normal 21.0-32.0 [facility] Comment on above: Performed By: #### B MP ####[facility] Wkladzijpk1844 [place] [address]Dr. Villa Yanes Creatinine [Mass/Vol] 1.39 mg/dL Critically high 0.70-1.30 [facility] Comment on above: Performed By: #### B MP ####[facility] Fglhsuddmv5210 [place] [address]Dr. Villa Yanes EGFR-AF RUSSIAN 60 mL/min/1.73m2 Normal >=60 [facility] Comment on above: Performed By: #### B MP ####[facility] Hiinynmxgq4786[address] [place], [place] [address]Dr. Villa Yanes EGFR-NON AF RUSSIAN 49 mL/min/1.73m2 Critically low >=60 [facility] Comment on above: Performed By: #### B MP ####[facility] Raoflwexgn0927 [place] [address]Dr. Villa Yanes Glucose [Mass/Vol] 229 mg/dL Critically high 74-106 T [facility] Comment on above: Performed By: #### B MP ####[facility] Lrilfvyuww2335 [place] [address]Dr. Villa Yanes Potassium [Moles/Vol] 4.2 mmol/L Normal 3.5-5.1 [facility] Comment on above: Performed By: #### B MP ####[facility] Wnffslolof4887 [place] [address]Dr. Villa Yanes Sodium [Moles/Vol] 140 mmol/L Normal 136-145 [facility] Comment on above: Performed By: #### B MP ####[facility] Rzcbgvyfgl8437[address] [place], [place] [address]Dr. Villa Yanes Urea nitrogen [Mass/Vol] 47.0 mg/dL Critically high 7.0-18.0 [facility] Comment on above: Performed By: #### B MP ####[facility] Tcarlzhgqx7346[address] [place], [place] [address]Dr. Villa Yanes Urea nitrogen/Creatinine [Mass ratio] 33.8 mg/mg Normal [facility] Comment on above: Performed By: #### B MP ####[facility] Bblqnmtunp467[address] [place], [place] [address]Dr. Villa Yanes CBC AUTO DIFFon 06-28-2022 BASO # 0.0 103/ul Normal 0.0-0.1 [facility] Comment on above: Performed By: #### C BC ####[facility] Htdwqucpdm7606[address] [place], [place] [address]Dr. Villa Joaquín Basophils/100 WBC (Bld) 0.1 % Critically low 0.2-2.0 [facility] Comment on above: Performed By: #### C BC ####[facility] Yveveydpau2630[address] [place], [place] [address]Dr. Villa Yanes EO # 0.0 103/ul Normal 0.0-0.7 [facility] Comment on above: Performed By: #### C BC ####[facility] Gzyzimnlsj9399[address] [place], [place] [address]Dr. Villa Joaquín Eosinophils/100 WBC (Bld) 0.1 % Critically low 0.9-7.0 [facility] Comment on above: Performed By: #### C BC ####[facility] Wigcxooaqn5157[address] [place], [place] [address]Dr. Villa Yanes Erythrocyte distribution width (RBC) [Ratio] 12.6 % Normal 11.0-15.0 [facility] Comment on above: Performed By: #### C BC ####[facility] Eulteeqisv[address] [place] [address]Dr. Villa Yanes Hematocrit (Bld) [Volume fraction] 33.4 % Critically low 42.0-54.0 [facility] Comment on above: Performed By: #### C BC ####[facility] Ebnejufmpt0061 [place] [address]Dr. Villa Yanes Hemoglobin (Bld) [Mass/Vol] 10.5 g/dL Critically low 14.0-18.0 [facility] Comment on above: Performed By: #### C BC ####[facility] Wkpqwewgvn6676 [place] [address]Dr. Villa Yanes IG # 0.12 10e3/ul Critically high 0.00-0.03 [facility] Comment on above: Performed By: #### C BC ####[facility] Vfyardidip2334[address] [place], [place] [address]Dr. Villa Yanes IG % 0.9 % Critically high 0.0-0.5 [facility] Comment on above: Performed By: #### C BC ####[facility] Nziqqtxfex7659 [place] [address]Dr. Villa Yanes LYMPH # 0.5 103/ul Critically low 1.2-3.8 [facility] Comment on above: Performed By: #### C BC ####[facility] Usotirodcc0105 [place] [address]Dr. Villa Yanes Lymphocytes/100 WBC (Bld) 3.6 % Critically low 20.5-60.0 [facility] Comment on above: Performed By: #### C BC ####[facility] Vuxyfaqdzf0822 [place] [address]Dr. Villa Yanes MANUAL DIFF REQ NO Normal [facility] Comment on above: Performed By: #### C BC ####[facility] Yulzoviuax7047[address] [place], [place] [address]Dr. Villa Yanes MCH (RBC) [Entitic mass] 31.4 pg Normal 25.9-34.0 [facility] Comment on above: Performed By: #### C BC ####[facility] Ehocrxtbpd0865 [place] [id number]. Villa Yanes MCHC (RBC) [Mass/Vol] 31.4 g/dL Normal 29.9-35.2 [facility] Comment on above: Performed By: #### C BC ####[facility] Lavfksrbiu2975 [place] [id number]. Villa Yanes MCV (RBC) [Entitic vol] 100.0 fL Critically high 80.0-94.0 [facility] Comment on above: Performed By: #### C BC ####[facility] Okxuaqcxeq[address] [place], [place] [address]Dr. Villa Joaquín MONO # 0.2 103/ul Critically low 0.3-0.8 [facility] Comment on above: Performed By: #### C BC ####[facility] Eifodytraj8[address] [place], [place] [address]Dr. Villa Yanes Monocytes/100 WBC (Bld) 1.6 % Critically low 1.7-12.0 [facility] Comment on above: Performed By: #### C BC ####[facility] Eyinixvxli4557[address] [place], [place] [address]Dr. Villa Yanes NEUT # 12.5 103/ul Critically high 1.4-6.5 [facility] Comment on above: Performed By: #### C BC ####[facility] Gxammtlcxi5646[address] [place], [place] [address]Dr. Villa Yanes Neutrophils/100 WBC (Bld) 93.7 % Critically high 43.0-75.0 [facility] Comment on above: Performed By: #### C BC ####[facility] Wxvvkohtkx6960[address] [place], [place] [address]Dr. Villa Yanes Platelet mean volume (Bld) [Entitic vol] 10.0 fL Normal 9.5-13.5 [facility] Comment on above: Performed By: #### C BC ####[facility] Wytgfiqrim[address] [place], [place] [address]Dr. Villa Yanes PLT 242 103/ul Normal 150-450 [facility] Comment on above: Performed By: #### C BC ####[facility] Vlmogzuvug8944 [place] [phone]. Brookylnkaren Yanes RBC 3.34 106/ul Critically low 4.70-6.10 [facility] Comment on above: Performed By: #### C BC ####[facility] Apzkkskbnc9213 [place] [phone]. Brooklynkaren Joaquín WBC 13.4 103/ul Critically high 4.0-11.0 [facility] Comment on above: Performed By: #### C BC ####[facility] Jimjtjlrdl5743 [place] [phone]. Villa Yanes POINT OF CARE GLUCOSEon Glucose [Mass/Vol] 238 mg/dL Critically high 74-106 [facility] Comment on above: Performed By: #### P OCGLUC ####[facility] Scghwumdvz4590 [place] [address]Dr. Villa Yanes Glucose [Mass/Vol] 202 mg/dL Critically high 74-106 [facility] Comment on above: Performed By: #### P OCGLUC ####[facility] Dgjfsflcyk9926 [place] [address]Dr. Villa Yanes Glucose [Mass/Vol] 168 mg/dL Critically high 74-106 [facility] Comment on above: Performed By: #### P OCGLUC ####[facility] Ylasqbsojk9688 [place] [address]Dr. Villa Yanes PROF CHEM 8 (BAS METB)on Anion gap [Moles/Vol] 11.5 mmol/L Normal [facility] Comment on above: Performed By: #### B MP ####[facility] Hmobtgelhh6626 [place] [address]Dr. Villa Yanes Calcium [Mass/Vol] 8.9 mg/dL Normal 8.5-10.1 [facility] Comment on above: Performed By: #### B MP ####[facility] Mjoqncquew6892 [place] [address]Dr. Villa Yanes Chloride [Moles/Vol] 106 mmol/L Normal 98-107 [facility] Comment on above: Performed By: #### B MP ####[facility] Uhkxlbeddk6849 [place] [id number]. Villa Yanes CO2 [Moles/Vol] 25.3 mmol/L Normal 21.0-32.0 [facility] Comment on above: Performed By: #### B MP ####[facility] Cnskxkywrh3133 [place] [phone]. Villa Yanes Creatinine [Mass/Vol] 1.39 mg/dL Critically high 0.70-1.30 [facility] Comment on above: Performed By: #### B MP ####[facility] Sqqnyeyvix7554 [place] [phone]. Brooklynkaren Joaquín EGFR-AF RUSSIAN 60 mL/min/1.73m2 Normal >=60 [facility] Comment on above: Performed By: #### B MP ####[facility] Hmmngbvkmb4674 [place] [address]Dr. Brooklynkaren Joaquín EGFR-NON AF RUSSIAN 49 mL/min/1.73m2 Critically low >=60 [facility] Comment on above: Performed By: #### B MP ####[facility] Fhoexlclve9331 [place] [address]Dr. Villa Joaquín Glucose [Mass/Vol] 191 mg/dL Critically high 74-106 [facility] Comment on above: Performed By: #### B MP ####[facility] Qegvvkwklr2020 [place] [address]Dr. Villa Yanes Potassium [Moles/Vol] 4.8 mmol/L Normal 3.5-5.1 [facility] Comment on above: Performed By: #### B MP ####[facility] Trpndgtrka[address] [place], [place] [address]Dr. Villa Yanes Sodium [Moles/Vol] 138 mmol/L Normal 136-145 [facility] Comment on above: Performed By: #### B MP ####[facility] Wlguhgusde0988 [place] [address]Dr. Villa Yanes Urea nitrogen [Mass/Vol] 48.0 mg/dL Critically high 7.0-18.0 [facility] Comment on above: Performed By: #### B MP ####[facility] Ktscurnawg[address] [place], [place] [address]Dr. Villa Yanes Urea nitrogen/Creatinine [Mass ratio] 34.5 mg/mg Normal [facility] Comment on above: Performed By: #### B MP ####[facility] Kezsdkdfzk166[address] [place], [place] [address]Dr. Villa Yanes XR CHEST 2 Von 06-28-2022 XR CHEST 2 V Normal [facility] CBC AUTO DIFFon 06-27-2022 BASO # 0.0 103/ul Normal 0.0-0.1 [facility] Comment on above: Performed By: #### C BC ####[facility] Pzombtkkaq678[address] [place], [place] [address]Dr. Villa Yanes Basophils/100 WBC (Bld) 0.2 % Normal 0.2-2.0 [facility] Comment on above: Performed By: #### C BC ####[facility] Jkyezuioks8[address] [place], [place] [address]Dr. Villa Yanes EO # 0.0 103/ul Normal 0.0-0.7 [facility] Comment on above: Performed By: #### C BC ####[facility] Mnkdtjwrmr[address] [place], [place] [address]Dr. Villa Yanes Eosinophils/100 WBC (Bld) 0.0 % Critically low 0.9-7.0 [facility] Comment on above: Performed By: #### C BC ####[facility] Zsowmaxsxv34[address] [place], [place] [address]Dr. Villa Yanes Erythrocyte distribution width (RBC) [Ratio] 12.6 % Normal 11.0-15.0 [facility] Comment on above: Performed By: #### C BC ####[facility] Pvjgjyukck6[address] [place], [place] [address]Dr. Villa Yanes Hematocrit (Bld) [Volume fraction] 33.9 % Critically low 42.0-54.0 [facility] Comment on above: Performed By: #### C BC ####[facility] Ifgmczounp0830 [place] [address]Dr. Villa Yanes Hemoglobin (Bld) [Mass/Vol] 10.7 g/dL Critically low 14.0-18.0 [facility] Comment on above: Performed By: #### C BC ####[facility] Ygzcmhitfn4598 [place] [phone]. Villa Yanes IG # 0.08 10e3/ul Critically high 0.00-0.03 [facility] Comment on above: Performed By: #### C BC ####[facility] Nzfkejpskj1616 [place] [address]Dr. Villa Yanes IG % 1.3 % Critically high 0.0-0.5 [facility] Comment on above: Performed By: #### C BC ####[facility] Fpdjlsteux4752 [place] [address]Dr. Villa Yanes LYMPH # 0.3 103/ul Critically low 1.2-3.8 [facility] Comment on above: Performed By: #### C BC ####[facility] Fcyiaucpyp4986 [place] [address]Dr. Villa Yanes Lymphocytes/100 WBC (Bld) 5.1 % Critically low 20.5-60.0 [facility] Comment on above: Performed By: #### C BC ####[facility] Memwsiyfen1654 [place] [address]Dr. Villa Yanes MANUAL DIFF REQ NO Normal [facility] Comment on above: Performed By: #### C BC ####[facility] Pkbhozltks4714 [place] [address]Dr. Villa Yanes MCH (RBC) [Entitic mass] 31.4 pg Normal 25.9-34.0 [facility] Comment on above: Performed By: #### C BC ####[facility] Qirsglwpsz2694 [place] [address]Dr. Villa Yanes MCHC (RBC) [Mass/Vol] 31.6 g/dL Normal 29.9-35.2 [facility] Comment on above: Performed By: #### C BC ####[facility] Osexitubiz7289 [place] [phone]. Villa Yanes MCV (RBC) [Entitic vol] 99.4 fL Critically high 80.0-94.0 [facility] Comment on above: Performed By: #### C BC ####[facility] Vrxxoiejwl8560 [place] [address]Dr. Villa Yanes MONO # 0.0 103/ul Critically low 0.3-0.8 [facility] Comment on above: Performed By: #### C BC ####[facility] Yrghfnqwtn5420 [place] [address]Dr. Villa Yanes Monocytes/100 WBC (Bld) 0.7 % Critically low 1.7-12.0 [facility] Comment on above: Performed By: #### C BC ####[facility] Jsusgnbskz[address] [place], [place] [address]Dr. Villa Yanes NEUT # 5.6 103/ul Normal 1.4-6.5 [facility] Comment on above: Performed By: #### C BC ####[facility] Nmuncdvoph[address] [place], [place] [address]Dr. Villa Yanes Neutrophils/100 WBC (Bld) 92.7 % Critically high 43.0-75.0 [facility] Comment on above: Performed By: #### C BC ####[facility] Qflogmdpbi27232[address] [place], [place] [address]Dr. Villa Yanes Platelet mean volume (Bld) [Entitic vol] 9.7 fL Normal 9.5-13.5 [facility] Comment on above: Performed By: #### C BC ####[facility] Jnyspthtyq[address] [place], [place] [address]Dr. Villa Joaquín PLT 221 103/ul Normal 150-450 [facility] Comment on above: Performed By: #### C BC ####[facility] Ovqcqmbbww[address] [place], [place] [address]Dr. [place]karen Joaquín RBC 3.41 106/ul Critically low 4.70-6.10 [facility] Comment on above: Performed By: #### C BC ####[facility] Dbndmnxbys9467 [place] [address]Dr. Villa Yanes WBC 6.1 103/ul Normal 4.0-11.0 [facility] Comment on above: Performed By: #### C BC ####[facility] Fdqwufytxz5409[address] [place], [place] [address]Dr. Villa Joaquín POINT OF CARE GLUCOSEon Glucose [Mass/Vol] 236 mg/dL Critically high 74-106 [facility] Comment on above: Performed By: #### P OCGLUC ####[facility] Wunlbktmwl[address] [place], [place] [address]Dr. Villa Yanes Glucose [Mass/Vol] 156 mg/dL Critically high 74-106 [facility] Comment on above: Performed By: #### P OCGLUC ####[facility] Vnecfzgwgg647[address] [place], [place] [address]Dr. Villa Yanes Glucose [Mass/Vol] 229 mg/dL Critically high -106 [facility] Comment on above: Performed By: #### P OCGLUC ####[facility] Mywpaopcfg06[address] [place], [place] [address]Dr. [place]karen Yanes PROF CHEM 8 (BAS METB)on Anion gap [Moles/Vol] 12.7 mmol/L Normal [facility] Comment on above: Performed By: #### B MP ####[facility] Ximybqxnsp[address] [place], [place] [address]Dr. Villa Joaquín Calcium [Mass/Vol] 8.4 mg/dL Critically low 8.5-10.1 [facility] Comment on above: Performed By: #### B MP ####[facility] Huqrbafkin[address] [place], [place] [address]Dr. Villa Joaquín Chloride [Moles/Vol] 103 mmol/L Normal 98-107 [facility] Comment on above: Performed By: #### B MP ####[facility] Darfdzrcns[address] [place], [place] [address]Dr. Villa Yanes CO2 [Moles/Vol] 24.1 mmol/L Normal 21.0-32.0 [facility] Comment on above: Performed By: #### B MP ####[facility] Zzhveuyqlv6930 [place] [phone]. Villa Yanes Creatinine [Mass/Vol] 1.34 mg/dL Critically high 0.70-1.30 [facility] Comment on above: Performed By: #### B MP ####[facility] Gdwntzqklt8686 [place] [id number]. Villa Joaquín EGFR-AF RUSSIAN >60 Normal >=60 [facility] Comment on above: Performed By: #### B MP ####[facility] Pmznrbauml6406 [place] [address]Dr. Villa Joaquín EGFR-NON AF RUSSIAN 51 mL/min/1.73m2 Critically low >=60 [facility] Comment on above: Performed By: #### B MP ####[facility] Grafoootxl[address] [place], [place] [address]Dr. Villa Yanes Glucose [Mass/Vol] 249 mg/dL Critically high 74-106 T [facility] Comment on above: Performed By: #### B MP ####[facility] Bhjmlvypoh1089 [place] [address]Dr. Villa Yanes Potassium [Moles/Vol] 4.8 mmol/L Normal 3.5-5.1 [facility] Comment on above: Performed By: #### B MP ####[facility] Wyhlmnzkic[address] [place], [place] [address]Dr. Villa Yanes Sodium [Moles/Vol] 135 mmol/L Critically low 136-145 [facility] Comment on above: Performed By: #### B MP ####[facility] Ihmowynqzs8166 [place] [address]Dr. Villa Yanes Urea nitrogen [Mass/Vol] 37.0 mg/dL Critically high 7.0-18.0 [facility] Comment on above: Performed By: #### B MP ####[facility] Iivuqusibd6[address] [place], [place] [address]Dr. Villa Yanes Urea nitrogen/Creatinine [Mass ratio] 27.6 mg/mg Normal [facility] Comment on above: Performed By: #### B MP ####[facility] Qvdliwrtuo6193 [place] [address]Dr. Villa Joaquín T3, TOTAL (TRIIODOTHYRONINE) on 06-27-2022 T3, TOTAL 70 ng/dL Critically low 71-180 [facility] Comment on above: Performed By: #### T 3TOTAL ####[facility] Bbhxdtgxxc3816 [place] [address]Dr. Villa Joaquín CBC AUTO DIFFon 06-26-2022 BASO # 0.0 103/ul Normal 0.0-0.1 [facility] Comment on above: Performed By: #### C BC ####[facility] Yvitejmwez9[address] [place], [place] [address]Dr. Villa Yanes Basophils/100 WBC (Bld) 0.3 % Normal 0.2-2.0 [facility] Comment on above: Performed By: #### C BC ####[facility] Agucsnjxjd022[address] [place], [place] [address]Dr. Villa Yanes EO # 0.1 103/ul Normal 0.0-0.7 [facility] Comment on above: Performed By: #### C BC ####[facility] Nmymfgjrxj[address] [place], [place] [address]Dr. [place]karen Yanes Eosinophils/100 WBC (Bld) 0.4 % Critically low 0.9-7.0 [facility] Comment on above: Performed By: #### C BC ####[facility] Tghehttsqc53[address] [place], [place] [address]Dr. Brooklynkaren Joaquín Erythrocyte distribution width (RBC) [Ratio] 12.3 % Normal 11.0-15.0 [facility] Comment on above: Performed By: #### C BC ####[facility] Nekiyqmbkh[address] [place], [place] [address]Dr. Villa Yanes Hematocrit (Bld) [Volume fraction] 34.6 % Critically low 42.0-54.0 [facility] Comment on above: Performed By: #### C BC ####[facility] Tfvhbemvbm7[address] [place], [place] [address]Dr. Villa Yanes Hemoglobin (Bld) [Mass/Vol] 11.6 g/dL Critically low 14.0-18.0 [facility] Comment on above: Performed By: #### C BC ####[facility] Cuicdubaiw3498 [place] [address]DrBrenden Yanes IG # 0.13 10e3/ul Critically high 0.00-0.03 [facility] Comment on above: Performed By: #### C BC ####[facility] Kaxabdnfzc1930 [place] [address]DrBrenden Yanes IG % 1.0 % Critically high 0.0-0.5 [facility] Comment on above: Performed By: #### C BC ####[facility] Ngvtrrcnew0020 [place] [address]DrBrenden Yanes LYMPH # 1.6 103/ul Normal 1.2-3.8 [facility] Comment on above: Performed By: #### C BC ####[facility] Ixrdwimfvu1584 [place] [address]DrBrenden Yanes Lymphocytes/100 WBC (Bld) 11.9 % Critically low 20.5-60.0 [facility] Comment on above: Performed By: #### C BC ####[facility] Xxraoykdau3790 [place] [address]DrBrenden Yanes MANUAL DIFF REQ NO Normal [facility] Comment on above: Performed By: #### C BC ####[facility] Fzptunnwzm9247 [place] [address]DrBrenden Yanes MCH (RBC) [Entitic mass] 32.3 pg Normal 25.9-34.0 [facility] Comment on above: Performed By: #### C BC ####[facility] Jnnskzgwmd6747 [place] [id number] Yanes MCHC (RBC) [Mass/Vol] 33.5 g/dL Normal 29.9-35.2 [facility] Comment on above: Performed By: #### C BC ####[facility] Lztqluglwc4103 [place] [id number] Yanes MCV (RBC) [Entitic vol] 96.4 fL Critically high 80.0-94.0 [facility] Comment on above: Performed By: #### C BC ####[facility] Xxgeznfljj4185 [place] [phone]. Villa Yanes MONO # 0.7 103/ul Normal 0.3-0.8 [facility] Comment on above: Performed By: #### C BC ####[facility] Jxfzpigqar3065 [place] [phone]. Villa Joaquín Monocytes/100 WBC (Bld) 5.6 % Normal 1.7-12.0 [facility] Comment on above: Performed By: #### C BC ####[facility] Vbdakghsci1889 [place] [address]Dr. Villa Yanes NEUT # 10.5 103/ul Critically high 1.4-6.5 [facility] Comment on above: Performed By: #### C BC ####[facility] Qbnfycpnet4882 [place] [address]Dr. Villa Yanes Neutrophils/100 WBC (Bld) 80.8 % Critically high 43.0-75.0 [facility] Comment on above: Performed By: #### C BC ####[facility] Swswuifyhb9590 [place] [address]Dr. Villa Joaquín Platelet mean volume (Bld) [Entitic vol] 9.1 fL Critically low 9.5-13.5 [facility] Comment on above: Performed By: #### C BC ####[facility] Bvqyobggcw6511 [place] [id number]. Villa Joaquín PLT 266 103/ul Normal 150-450 [facility] Comment on above: Performed By: #### C BC ####[facility] Upfiytewya4619 [place] [id number]. Villa Yanes RBC 3.59 106/ul Critically low 4.70-6.10 [facility] Comment on above: Performed By: #### C BC ####[facility] Zakopkychh5282 [place] [phone]. Villa Yanes WBC 13.1 103/ul Critically high 4.0-11.0 [facility] Comment on above: Performed By: #### C BC ####[facility] Gfdqlptfmj0380 [place] [address]Dr. Villa Yanes CULTURE URINEon 06-26-2022 CULTURE URINE Culture Observations : LIGHT GROWTH OF MIXED SKIN ARACELI. NO POTENTIAL PATHOGENS SEEN. Normal [facility] Comment on above: Performed By: #### U RCX ####[facility] Vdbqgcrigo64[address] [place], [place] [address]Dr. Villa Joaquín LACTATE/LACTIC ACIDon 2022 Lactate [Moles/Vol] 1.0 mmol/L Normal 0.4-1.9 [facility] Comment on above: Performed By: #### L ACT ####[facility] Sujkjnkcyc7[address] [place], [place] [address]Dr. Villa Yanes POINT OF CARE GLUCOSEon Glucose [Mass/Vol] 242 mg/dL Critically high 74-106 [facility] Comment on above: Performed By: #### P OCGLUC ####[facility] Uwihlyqukn4[address] [place], [place] [address]Dr. Villa Yanes Glucose [Mass/Vol] 140 mg/dL Critically high 74-106 [facility] Comment on above: Performed By: #### P OCGLUC ####[facility] Iwzqnbofrx18[address] [place], [place] [address]Dr. Villa Yanes PROF 14(COMP METB)on 023 Albumin [Mass/Vol] 3.0 g/dL Critically low 3.4-5.0 [facility] Comment on above: Performed By: #### C MP, T4, TSH ####[facility] Grvhrefsgu4722 [place] [address]Dr. Villa Yanes Albumin/Globulin [Mass ratio] 0.9 {ratio} Normal [facility] Comment on above: Performed By: #### C MP, T4, TSH ####[facility] Fsvehbrkyh4454 [place] [address]Dr. Villa Yanes ALP [Catalytic activity/Vol] 175 U/L Critically high 46-116 [facility] Comment on above: Performed By: #### C MP, T4, TSH ####[facility] Rziyuyyzge9916 [place] [address]Dr. Villa Yanes ALT [Catalytic activity/Vol] 12 U/L Critically low 16-63 [facility] Comment on above: Performed By: #### C MP, T4, TSH ####[facility] Dacsgxavrj5210 [place] [address]Dr. Villa Yanes Anion gap [Moles/Vol] 11.1 mmol/L Normal [facility] Comment on above: Performed By: #### C MP, T4, TSH ####[facility] Zqidqfetyq9680 [place] [address]Dr. Villa Yanes AST [Catalytic activity/Vol] 12 U/L Critically low 15-37 [facility] Comment on above: Performed By: #### C MP, T4, TSH ####[facility] Tecslpjvtp[address] [place], [place] [address]Dr. Villa Yanes Bilirubin [Mass/Vol] 0.5 mg/dL Normal 0.2-1.0 [facility] Comment on above: Performed By: #### C MP, T4, TSH ####[facility] Trmdjkzboz[address] [place], [place] [address]Dr. Villa Yanes Calcium [Mass/Vol] 9.0 mg/dL Normal 8.5-10.1 [facility] Comment on above: Performed By: #### C MP, T4, TSH ####[facility] Vhttnpnlwa42[address] [place], [place] [address]Dr. Villa Yanes Chloride [Moles/Vol] 104 mmol/L Normal 98-107 [facility] Comment on above: Performed By: #### C MP, T4, TSH ####[facility] Qbeoxmvdti3[address] [place], [place] [address]Dr. Villa Yanes CO2 [Moles/Vol] 28.2 mmol/L Normal 21.0-32.0 [facility] Comment on above: Performed By: #### C MP, T4, TSH ####[facility] Qgztwvfcik04[address] [place], [place] [address]Dr. Villa Yanes Creatinine [Mass/Vol] 1.23 mg/dL Normal 0.70-1.30 [facility] Comment on above: Performed By: #### C MP, T4, TSH ####[facility] Euchzhfval5279 [place] [address]Dr. Villa Yanes EGFR-AF RUSSIAN >60 Normal >=60 [facility] Comment on above: Performed By: #### C MP, T4, TSH ####[facility] Bkmeyactwc6781 [place] [address]Dr. Villa Yanes EGFR-NON AF RUSSIAN 57 mL/min/1.73m2 Critically low >=60 [facility] Comment on above: Performed By: #### C MP, T4, TSH ####[facility] Netgifweij7047 [place] [address]Dr. Villa Yanes Globulin (S) [Mass/Vol] 3.3 g/dL Normal [facility] Comment on above: Performed By: #### C MP, T4, TSH ####[facility] Rvgfafpzyc4142 [place] [address]Dr. Villa Yanes Glucose [Mass/Vol] 122 mg/dL Critically high 74-106 [facility] Comment on above: Performed By: #### C MP, T4, TSH ####[facility] Jyumjbzmsm2877 [place] [address]Dr. Villa Yanes Potassium [Moles/Vol] 4.3 mmol/L Normal 3.5-5.1 [facility] Comment on above: Performed By: #### C MP, T4, TSH ####[facility] Nfikpeirgi9234 [place] [address]Dr. Villa Yanes Protein [Mass/Vol] 6.3 g/dL Critically low 6.4-8.2 [facility] Comment on above: Performed By: #### C MP, T4, TSH ####[facility] Vtkxluyzsq0434 [place] [address]Dr. Villa Yanes Sodium [Moles/Vol] 139 mmol/L Normal 136-145 [facility] Comment on above: Performed By: #### C MP, T4, TSH ####[facility] Nlqvjoqofh5864 [place] [address]Dr. Villa Yanes Urea nitrogen [Mass/Vol] 29.0 mg/dL Critically high 7.0-18.0 [facility] Comment on above: Performed By: #### C MP, T4, TSH ####[facility] Dhkvojxcgu8323 [place] [address]Dr. Villa Yanes Urea nitrogen/Creatinine [Mass ratio] 23.6 mg/mg Normal [facility] Comment on above: Performed By: #### C MP, T4, TSH ####[facility] Enkkfrpnho5994 [place] [address]Dr. Villa Yanes T4on 06-26-2022 T4 [Mass/Vol] 5.80 ug/dL Normal 4.50-12.10 [facility] Comment on above: Performed By: #### C MP, T4, TSH ####[facility] Mumfqwxsav0097 [place] [address]Dr. Villa Yanes TSHon 06-26-2022 TSH 0.281 uIU/mL Critically low 0.358-3.740 [facility] Comment on above: Performed By: #### C MP, T4, TSH ####[facility] Pnintdnevq2724 [place] [address]Dr. Villa Yanes UA RANDOM W/MICROSCOPICon BACTERIA TRACE Abnormal NONE SEEN [facility] Comment on above: Performed By: #### U AMIC ####[facility] Rwzzgxnrcy0497 [place] [address]Dr. Villa Yanes Bilirubin Ql (U) Negative Normal NEGATIVE [facility] Comment on above: Performed By: #### U AMIC ####[facility] Yotougmuos4459 [place] [address]Dr. Villa Yanes CAST NONE SEEN Normal NONE SEEN [facility] Comment on above: Performed By: #### U AMIC ####[facility] Fuqfrvixul6249 [place] [address]Dr. Villa Yanes Clarity (U) CLEAR Normal CLEAR [facility] Comment on above: Performed By: #### U AMIC ####[facility] Esiekelvjw6108 [place] [phone]. [place]karen Yanes Color (U) YELLOW Normal YELLOW [facility] Comment on above: Performed By: #### U AMIC ####[facility] Vexvzjlqnj0989 [place] [phone]. [place]karen Yanes Crystals LM Nom (Urine sed) NONE SEEN Normal NONE SEEN [facility] Comment on above: Performed By: #### U AMIC ####[facility] Gxvsiudpfr39[address] [place], [place] [address]Dr. Villa Joaquín Epithelial cells LM Ql (Urine sed) RARE Normal NONE SEEN /RARE [facility] Comment on above: Performed By: #### U AMIC ####[facility] Rakehlvkvq6065[address] [place], [place] [address]Dr. Villa Yanes Glucose Ql (U) Negative Normal NEGATIVE [facility] Comment on above: Performed By: #### U AMIC ####[facility] Abesdviqwb4574[address] [place], [place] [address]Dr. Villa Yanes Hemoglobin Ql (U) Negative Normal NEGATIVE [facility] Comment on above: Performed By: #### U AMIC ####[facility] Glhvcccfco174[address] [place], [place] [address]Dr. Villa Yanes Ketones Ql (U) Negative Normal NEGATIVE [facility] Comment on above: Performed By: #### U AMIC ####[facility] Xilmmnhwpp48[address] [place], [place] [address]Dr. Yilan Yanes LEUKOCYTES Negative Normal NEGATIVE [facility] Comment on above: Performed By: #### U AMIC ####[facility] Zkpgxxmato3705[address] [place], [place] [address]Dr. Yilan Yanes MUCOUS NONE SEEN Normal NONE SEEN [facility] Comment on above: Performed By: #### U AMIC ####[facility] Zqxnsvgprt856[address] [place], [place] [address]Dr. Yilan Yanes Nitrite Ql (U) Negative Normal NEGATIVE [facility] Comment on above: Performed By: #### U AMIC ####[facility] Qsypomcvgf6925[address] [place], [place] [address]Dr. Yilan Yanes pH (U) 5.5 [pH] Normal 5-9 [facility] Comment on above: Performed By: #### U AMIC ####[facility] Jqqfwawonp0493 [place] [address]Dr. Villa Yanes RBC 0-2 Normal 0-2 [facility] Comment on above: Performed By: #### U AMIC ####[facility] Fbfvwrhofy7993 [place] [address]Dr. Villa Yanes SPEC GRAVITY 1.025 Normal 1.005-<=1.0 25 [facility] Comment on above: Performed By: #### U AMIC ####[facility] Ikrevojggx77[address] [place], [place] [address]Dr. Villa Yanes UA PROTEIN 100 mg/dl Abnormal NEGATIVE/ TRACE [facility] Comment on above: Performed By: #### U AMIC ####[facility] Viengxlwfg169[address] [place], [place] [address]Dr. Villa Yanes Urobilinogen Qn (U) 0.2 {Mackenzie'U}/dL Normal 0.2 - 1. 0 [facility] Comment on above: Performed By: #### U AMIC ####[facility] Mghvorgpsy9[address] [place], [place] [address]Dr. Villa Yanes WBC NONE SEEN Normal NONE SEEN [facility] Comment on above: Performed By: #### U AMIC ####[facility] Cmnxdwhqwt16[address] [place], [place] [address]Dr. Villa Yanes MRI LSPINE WO CONon 06-10-19 MRI LSPINE WO CON Normal [facility] CBC AUTO DIFFon 06-06-2022 BASO # 0.0 103/ul Normal 0.0-0.1 [facility] Comment on above: Performed By: #### C BC ####[facility] Ipqehflidf4[address] [place], [place] [address]Dr. [place]karen Yanes Basophils/100 WBC (Bld) 0.4 % Normal 0.2-2.0 [facility] Comment on above: Performed By: #### C BC ####[facility] Kgonuyeikf0768 [place] [address]Dr. Villa Yanes EO # 0.1 103/ul Normal 0.0-0.7 [facility] Comment on above: Performed By: #### C BC ####[facility] Imhuwupqiv3816[address] [place], [place] [address]Dr. Villa Yanes Eosinophils/100 WBC (Bld) 0.6 % Critically low 0.9-7.0 [facility] Comment on above: Performed By: #### C BC ####[facility] Mzipvrxkah7[address] [place], [place] [address]Dr. Villa Yanes Erythrocyte distribution width (RBC) [Ratio] 12.6 % Normal 11.0-15.0 [facility] Comment on above: Performed By: #### C BC ####[facility] Bnugijkqru04[address] [place], [place] [address]Dr. Villa Yanes Hematocrit (Bld) [Volume fraction] 34.1 % Critically low 42.0-54.0 [facility] Comment on above: Performed By: #### C BC ####[facility] Wueczyxyut01[address] [place], [place] [address]Dr. Villa Yanes Hemoglobin (Bld) [Mass/Vol] 11.3 g/dL Critically low 14.0-18.0 [facility] Comment on above: Performed By: #### C BC ####[facility] Lugmwhzxov76[address] [place], [place] [address]Dr. Villa Yanes IG # 0.14 10e3/ul Critically high 0.00-0.03 [facility] Comment on above: Performed By: #### C BC ####[facility] Optxcnzlub7026[address] [place], [place] [address]Dr. Villa Yanes IG % 1.2 % Critically high 0.0-0.5 [facility] Comment on above: Performed By: #### C BC ####[facility] Qmpyqabybw11[address] [place], [place] [address]Dr. [place]karen Yanes LYMPH # 1.1 103/ul Critically low 1.2-3.8 [facility] Comment on above: Performed By: #### C BC ####[facility] Wkfhtqlily3746 [place] [phone]. Villa Yanes Lymphocytes/100 WBC (Bld) 9.8 % Critically low 20.5-60.0 [facility] Comment on above: Performed By: #### C BC ####[facility] Hheolwxdly8235 [place] [id number]. iVlla Joaquín MANUAL DIFF REQ NO Normal [facility] Comment on above: Performed By: #### C BC ####[facility] Nlvjzhyrat4420 [place] [address]Dr. Villa Joaquín MCH (RBC) [Entitic mass] 31.9 pg Normal 25.9-34.0 [facility] Comment on above: Performed By: #### C BC ####[facility] Mfboftotov1164 [place] [address]Dr. Villa Joaquín MCHC (RBC) [Mass/Vol] 33.1 g/dL Normal 29.9-35.2 [facility] Comment on above: Performed By: #### C BC ####[facility] Yamcnqgovc9313 [place] [address]Dr. Villa Joaquín MCV (RBC) [Entitic vol] 96.3 fL Critically high 80.0-94.0 [facility] Comment on above: Performed By: #### C BC ####[facility] Oukdhrfgpz5851 [place] [address]Dr. [place]karen Joaquín MONO # 0.8 103/ul Normal 0.3-0.8 [facility] Comment on above: Performed By: #### C BC ####[facility] Wyqtywntsp4900 [place] [address]Dr. [place]karen Yanes Monocytes/100 WBC (Bld) 6.7 % Normal 1.7-12.0 [facility] Comment on above: Performed By: #### C BC ####[facility] Hqnezjrsdg0410 [place] [address]Dr. Villa Yanes NEUT # 9.2 103/ul Critically high 1.4-6.5 [facility] Comment on above: Performed By: #### C BC ####[facility] Axsvopxsxb6051 [place] [id number]. Villa Yanes Neutrophils/100 WBC (Bld) 81.3 % Critically high 43.0-75.0 [facility] Comment on above: Performed By: #### C BC ####[facility] Gvlqezqfjb8160 [place] [address]Dr. Villa Yanes Platelet mean volume (Bld) [Entitic vol] 9.2 fL Critically low 9.5-13.5 [facility] Comment on above: Performed By: #### C BC ####[facility] Gfvvfmfquy6383 [place] [phone]. Villa Joaquín PLT 255 103/ul Normal 150-450 [facility] Comment on above: Performed By: #### C BC ####[facility] Aghtfoydhk7814 [place] [address]Dr. Villa Joaquín RBC 3.54 106/ul Critically low 4.70-6.10 [facility] Comment on above: Performed By: #### C BC ####[facility] Nlialouexq4459 [place] [phone]. Villa Joaquín WBC 11.3 103/ul Critically high 4.0-11.0 [facility] Comment on above: Performed By: #### C BC ####[facility] Rbqldpksug1715 [place] [phone]. Villa Yanes ER URINE PROFILEon 3 Bilirubin Ql (U) Negative Normal NEGATIVE [facility] Comment on above: Performed By: #### ANGELIA CAMARENARO ####[facility] Eahtbalcgx7189 [place] [phone]. [place]karen Yanes Clarity (U) CLEAR Normal CLEAR [facility] Comment on above: Performed By: #### ANGELIA CAMARENARO ####[facility] Mxqcssmrdk7290 [place] [phone]. Villa Yanes Color (U) LT. YELLOW Normal YELLOW [facility] Comment on above: Performed By: #### ANGELIA CAMARENARO ####[facility] Qkwpyiptps2063 [place] [phone]. Villa PNEG A micrscopic examina tion will be performed if indicated. Normal [facility] Comment on above: Performed By: #### ROBERTO CARLOS CAMARENA ####[facility] Kidkmurdva0108 [place] [address]Dr. Villa Yanes Glucose Ql (U) Negative Normal NEGATIVE [facility] Comment on above: Performed By: #### ANGELIA CAMARENARO ####[facility] Ptjvlfzktn8385 [place] [address]Dr. Villa Yanes Hemoglobin Ql (U) Negative Normal NEGATIVE [facility] Comment on above: Performed By: #### ANGELIA CAMARENARO ####[facility] Lrdjvnfvso[address] [place], [place] [address]Dr. Villa Yanes Ketones Ql (U) Negative Normal NEGATIVE [facility] Comment on above: Performed By: #### ANGELIA CAMARENARO ####[facility] Ljymkulbls[address] [place], [place] [address]Dr. Villa Yanes LEUKOCYTES Negative Normal NEGATIVE [facility] Comment on above: Performed By: #### ANGELIA CAMARENARO ####[facility] Oatuywnwnn[address] [place], [place] [address]Dr. Villa Yanes Nitrite Ql (U) Negative Normal NEGATIVE [facility] Center Comment on above: Performed By: #### ANGELIA CAMARENARO ####[facility] Gnfburcgwu[address] [place], [place] [address]Dr. iVlla Yanes pH (U) 5.5 [pH] Normal 5-9 [facility] Comment on above: Performed By: #### ANGELIA CAMARENARO ####[facility] Cjrrwjrmdu[address] [place] [address]Dr. Villa Yanes Protein (U) [Mass/Vol] 300 mg/dL Abnormal NEGATIVE/ TRACE [facility] Comment on above: Performed By: #### ANGELIA CAMARENARO ####[facility] Zsuwqudbnk62[address] [place] [address]Dr. Villa Yanes SPEC GRAVITY 1.025 Normal 1.005-<=1.0 25 [facility] Comment on above: Performed By: #### ROBERTO CARLOS CAMARENA ####[facility] Lalnifypag[address] [place] [address]Dr. Villa Yanes UR MICRO IND INDICATED Normal [facility] Comment on above: Performed By: #### ROBERTO CARLOS CAMARENA ####[facility] Yxiyrifnkr[address] [place] [address]Dr. Villa Yanes Urobilinogen Qn (U) 0.2 {Mackenzie'U}/dL Normal 0.2 - 1. 0 [facility] Comment on above: Performed By: #### ROEBRTO CARLOS CAMARENA ####[facility] Cdsnurtmne[address] [place] [address]DrBrenden Yanes PROF 14(COMP METB)on 023 Albumin [Mass/Vol] 2.7 g/dL Critically low 3.4-5.0 [facility] Comment on above: Performed By: #### C MP ####[facility] Ysdpcvkjog[address] [place], [place] [address]Dr. Villa Yanes Albumin/Globulin [Mass ratio] 0.8 {ratio} Normal [facility] Comment on above: Performed By: #### C MP ####[facility] Adnrsvtmit[address] [place], [place] [address]Dr. Villa Yanes ALP [Catalytic activity/Vol] 206 U/L Critically high 46-116 [facility] Comment on above: Performed By: #### C MP ####[facility] Cdbfcserza[address] [place], [place] [address]DrBrenden Yanes ALT [Catalytic activity/Vol] 8 U/L Critically low 16-63 [facility] Comment on above: Performed By: #### C MP ####[facility] Ggonjtqtaz[address] [place], [place] [address]DrBrenden Yanes Anion gap [Moles/Vol] 12.4 mmol/L Normal [facility] Comment on above: Performed By: #### C MP ####[facility] Ernemfrzos[address] [place], [place] [address]Dr. Villa Yanes AST [Catalytic activity/Vol] 9 U/L Critically low 15-37 [facility] Comment on above: Performed By: #### C MP ####[facility] Gwdviujaey7[address] [place] [address]Dr. Villa Yanes Bilirubin [Mass/Vol] 0.2 mg/dL Normal 0.2-1.0 [facility] Comment on above: Performed By: #### C MP ####[facility] Xubfeguavx[address] [place], [place] [address]Dr. Villa Joaquín Calcium [Mass/Vol] 8.9 mg/dL Normal 8.5-10.1 [facility] Comment on above: Performed By: #### C MP ####[facility] Uogkmfbxqm66[address] [place], [place] [address]Dr. Brooklynkaren Joaquín Chloride [Moles/Vol] 106 mmol/L Normal 98-107 [facility] Comment on above: Performed By: #### C MP ####[facility] Xkzafshqpz8[address] [place], [place] [address]Dr. Villa Joaquín CO2 [Moles/Vol] 27.4 mmol/L Normal 21.0-32.0 [facility] Comment on above: Performed By: #### C MP ####[facility] Oqhbdbyqro[address] [place], [place] [address]Dr. Villa Joaquín Creatinine [Mass/Vol] 1.26 mg/dL Normal 0.70-1.30 [facility] Comment on above: Performed By: #### C MP ####[facility] Uomxyrlaaj[address] [place], [place] [address]Dr. Brooklynkaren Joaquín EGFR-AF RUSSIAN >60 Normal >=60 [facility] Comment on above: Performed By: #### C MP ####[facility] Kreuejcozu[address] [place], [place] [address]Dr. Villa Yanes EGFR-NON AF RUSSIAN 55 mL/min/1.73m2 Critically low >=60 [facility] Comment on above: Performed By: #### C MP ####[facility] Rgdmzpjfmh4[address] [place], [place] [address]Dr. Villa Yanes Globulin (S) [Mass/Vol] 3.5 g/dL Normal [facility] Comment on above: Performed By: #### C MP ####[facility] Mgdsnlxcuw7845 [place] [phone]. Villa Yanes Glucose [Mass/Vol] 125 mg/dL Critically high 74-106 [facility] Comment on above: Performed By: #### C MP ####[facility] Gcxfzytxmu5072 [place] [phone]. Villa Yanes Potassium [Moles/Vol] 3.8 mmol/L Normal 3.5-5.1 [facility] Comment on above: Performed By: #### C MP ####[facility] Qzxpgrbqvr9902 [place] [address]Dr. Villa Yanes Protein [Mass/Vol] 6.2 g/dL Critically low 6.4-8.2 [facility] Comment on above: Performed By: #### C MP ####[facility] Kkfanmuufl[address] [place], [place] [address]Dr. Villa Yanes Sodium [Moles/Vol] 142 mmol/L Normal 136-145 [facility] Comment on above: Performed By: #### C MP ####[facility] Kwandcrhpi98[address] [place], [place] [address]Dr. Villa Yanes Urea nitrogen [Mass/Vol] 30.0 mg/dL Critically high 7.0-18.0 [facility] Comment on above: Performed By: #### C MP ####[facility] Zznmlplzkf8[address] [place], [place] [address]Dr. Villa Yanes Urea nitrogen/Creatinine [Mass ratio] 23.8 mg/mg Normal [facility] Comment on above: Performed By: #### C MP ####[facility] Whyncvvpef[address] [place] [phone]. Villa Joaquín URINE MICROSCOPIC ONLYon BACTERIA NONE SEEN Normal NONE SEEN [facility] Comment on above: Performed By: #### E ROBERTO CARLOS DAWN ####[facility] Qlppumftgp8828 [place] [phone]. Villa Joaquín Bacteria identified Cx Nom (U) NOT INDICATED Normal [facility] Comment on above: Performed By: #### Riddhi DAWN UMICRO ####[facility] Edtzduofiu[address] [place] [address]Dr. Villa Yanes CAST SEEN Abnormal NONE SEEN [facility] Comment on above: Performed By: #### Riddhi DAWN UMICRO ####[facility] Ngocwisqjk0438 [place] [address]Dr. Villa Yanes Crystals LM Nom (Urine sed) NONE SEEN Normal NONE SEEN [facility] Comment on above: Performed By: #### Riddhi DAWN UMICRO ####[facility] Terljfafbc9863 [place] [address]Dr. Villa Yanes Epithelial cells LM Ql (Urine sed) NONE SEEN Normal NONE SEEN /RARE [facility] Comment on above: Performed By: #### Riddhi DAWN UMICRO ####[facility] Jgujozziam[address] [place], [place] [address]Dr. Villa Yanes MUCOUS NONE SEEN Normal NONE SEEN [facility] Comment on above: Performed By: #### Riddhi DAWN UMICRO ####[facility] Woozelmgqe[address] [place], [place] [address]Dr. Villa Yanes RBC NONE SEEN Abnormal 0-2 [facility] Comment on above: Performed By: #### Riddhi DAWN UMICRO ####[facility] Mnzyomidpl0326 [place] [address]Dr. Villa Yanes WBC 0-2 Abnormal NONE SEEN [facility] Comment on above: Performed By: #### Riddhi DAWN UMICRO ####[facility] Xsdncjsbxm[address] [place], [place] [address]Dr. Villa Yanes WBC CELLULAR CAST RARE Normal [facility] Comment on above: Performed By: #### Riddhi DAWN UMICRO ####[facility] Byvuaagnvm[address] [place], [place] [address]Dr. Villa Yanes XR SACRUM_COCCYXon XR SACRUM_COCCYX Normal [facility] BNPon 05-08-2022 Natriuretic peptide B (Bld) [Mass/Vol] 2957.0 pg/mL Critically high <=1,800.0 [facility] Comment on above: Performed By: #### T SH, BNP, CMADM, CMP, T7 ####[facility] Saccnajdsl[address] [place] [address]Dr. Villa Yanes CARDIAC ANAMARIA ADMITon 022 CK [Catalytic activity/Vol] 88 U/L Normal 39-308 [facility] Comment on above: Performed By: #### T SH, BNP, CMADM, CMP, T7 ####[facility] Rctgcvveit8[address] [place] [address]Dr. Villa Yanes CK.MB [Mass/Vol] 2.75 ng/mL Normal <=3.60 [facility] Comment on above: Performed By: #### T SH, BNP, CMADM, CMP, T7 ####[facility] Uojiopbrvb[address] [place], [place] [address]Dr. Villa Yanes HSTROP 10.4 pg/mL Normal 4.0-76.1 [facility] Comment on above: Result Comment: CUT- OFF POINTS HAVE BEEN ESTABLISHED BASED ON THE FOURTH UNIVERSAL DEFINITIONS OF MYOCARDIALINFARCTION. THE UPPER REFERENCE LIMIT (URL) OF TROPONIN, DEFINED THE 99TH PERCENTILE OFcTnI DISTRIBUTION IN A REFERENCE POPULATION, HAS BEEN CONFIRMED THE DECISION THRESHOLDFOR SD DIAGNOSIS. Performed By: #### T SH, BNP, CMADM, CMP, T7 ####[facility] Iduvartjhv[address] [place] [address]Dr. Villa Yanes JULIA 109 ng/mL Critically high 16- [facility] Comment on above: Performed By: #### T SH, BNP, CMADM, CMP, T7 ####[facility] Kyswgqlvit37[address] [place] [address]Dr. Villa Yanes CBC AUTO DIFFon 05-08-2022 BASO # 0.0 103/ul Normal 0.0-0.1 [facility] Comment on above: Performed By: #### C BC ####[facility] Xuxekxffla[address] [place], [place] [address]Dr. Villa Yanes Basophils/100 WBC (Bld) 0.2 % Normal 0.2-2.0 [facility] Comment on above: Performed By: #### C BC ####[facility] Sbymkymjcp8908 [place] [phone] Villa Yanes EO # 0.0 103/ul Normal 0.0-0.7 [facility] Comment on above: Performed By: #### C BC ####[facility] Ukeftllibb[address] [place], [place] [address]DrBrenden Brooklynkaren Yanes Eosinophils/100 WBC (Bld) 0.0 % Critically low 0.9-7.0 [facility] Comment on above: Performed By: #### C BC ####[facility] Sbemijvxzz[address] [place], [place] [address]Dr. [place]karen Yanes Erythrocyte distribution width (RBC) [Ratio] 12.5 % Normal 11.0-15.0 [facility] Comment on above: Performed By: #### C BC ####[facility] Zqrejibqaf[address] [place], [place] [address]Dr. Villa Yanes Hematocrit (Bld) [Volume fraction] 30.0 % Critically low 42.0-54.0 [facility] Comment on above: Performed By: #### C BC ####[facility] Abtaqjxbcu92[address] [place], [place] [address]Dr. Villa Joaquín Hemoglobin (Bld) [Mass/Vol] 9.9 g/dL Critically low 14.0-18.0 [facility] Comment on above: Performed By: #### C BC ####[facility] Klqbvejzhq[address] [place], [place] [address]Dr. [place]karen Yanes IG # 0.13 10e3/ul Critically high 0.00-0.03 [facility] Comment on above: Performed By: #### C BC ####[facility] Jaobexlgeq01[address] [place], [place] [address]DrBrenden Yanes IG % 0.9 % Critically high 0.0-0.5 [facility] Comment on above: Performed By: #### C BC ####[facility] Puuvddsxtk[address] [place], [place] [address]DrBrenden Yanes LYMPH # 0.8 103/ul Critically low 1.2-3.8 [facility] Comment on above: Performed By: #### C BC ####[facility] Qgghfkkfbi0706 [place] [address]DrBrenden Yanes Lymphocytes/100 WBC (Bld) 5.7 % Critically low 20.5-60.0 [facility] Comment on above: Performed By: #### C BC ####[facility] Saufytewnm[address]169 [place] [address]DrBrenden Yanes MANUAL DIFF REQ NO Normal [facility] Comment on above: Performed By: #### C BC ####[facility] Iyzqvzkajv8122 [place] [phone] Yanes MCH (RBC) [Entitic mass] 32.1 pg Normal 25.9-34.0 [facility] Comment on above: Performed By: #### C BC ####[facility] Kiexnkxezn[address] [place], [place] [address]DrBrenden Yanes MCHC (RBC) [Mass/Vol] 33.0 g/dL Normal 29.9-35.2 [facility] Comment on above: Performed By: #### C BC ####[facility] Jyruanaevs[address] [place], [place] [address]DrBrenden Yanes MCV (RBC) [Entitic vol] 97.4 fL Critically high 80.0-94.0 [facility] Comment on above: Performed By: #### C BC ####[facility] Yqezcjbnik[address] [place], [place] [address]DrBrenden Yanes MONO # 0.5 103/ul Normal 0.3-0.8 [facility] Comment on above: Performed By: #### C BC ####[facility] Ndaaffpdxy[address] [place], [place] [address]DrBrenden Yanes Monocytes/100 WBC (Bld) 3.4 % Normal 1.7-12.0 [facility] Comment on above: Performed By: #### C BC ####[facility] Tahkxaxbjm[address] [place], [place] [address]DrBrenden Yanes NEUT # 13.1 103/ul Critically high 1.4-6.5 [facility] Comment on above: Performed By: #### C BC ####[facility] Kjejlglsdj8632 [place] [address]Dr. Villa Yanes Neutrophils/100 WBC (Bld) 89.8 % Critically high 43.0-75.0 [facility] Comment on above: Performed By: #### C BC ####[facility] Gkorbszrpr6639 [place] [address]Dr. Villa Yanes Platelet mean volume (Bld) [Entitic vol] 9.9 fL Normal 9.5-13.5 [facility] Comment on above: Performed By: #### C BC ####[facility] Zfvaekzfua7805 [place] [address]Dr. Villa Joaquín PLT 281 103/ul Normal 150-450 [facility] Comment on above: Performed By: #### C BC ####[facility] Sbagxjgcog9776 [place] [address]Dr. Villa Joaquín RBC 3.08 106/ul Critically low 4.70-6.10 [facility] Comment on above: Performed By: #### C BC ####[facility] Traqdiyzcf[address] [place], [place] [address]Dr. Villa Joaquín WBC 14.6 103/ul Critically high 4.0-11.0 [facility] Comment on above: Performed By: #### C BC ####[facility] Ivklemskkq59[address] [place] [phone]. Villa Joaquín FREE THYROXINE INDEX T7on FTI 1.87 Normal 1.30-4.50 [facility] Comment on above: Performed By: #### T SH, BNP, CMADM, CMP, T7 ####[facility] Ikruszcjub2392 [place] [phone]. Villa Yanes T3U 39.0 % Normal 33.0-40.0 [facility] Comment on above: Performed By: #### T SH, BNP, CMADM, CMP, T7 ####[facility] Jliojlysjp6994 [place] [phone]. Villa Yanes T4 [Mass/Vol] 4.80 ug/dL Normal 4.50-12.10 [facility] Comment on above: Performed By: #### T SH, BNP, CMADM, CMP, T7 ####[facility] Hklotuiirc[address] [place] [address]Dr. Villa Yanes IRONon 05-08-2022 Iron [Mass/Vol] 96.0 ug/dL Normal 65.0-175.0 [facility] Comment on above: Performed By: #### I JOSE ####[facility] Qokhsytrcp3067 [place] [address]Dr. Villa Yanes PROF 14(COMP METB)on 022 Albumin [Mass/Vol] 2.8 g/dL Critically low 3.4-5.0 [facility] Comment on above: Performed By: #### T SH, BNP, CMADM, CMP, T7 ####[facility] Tgdxnyddnq0018 [place] [address]Dr. Villa Yanes Albumin/Globulin [Mass ratio] 0.7 {ratio} Normal [facility] Comment on above: Performed By: #### T SH, BNP, CMADM, CMP, T7 ####[facility] Qodrgdnrxo3492 [place] [address]Dr. Villa Yanes ALP [Catalytic activity/Vol] 231 U/L Critically high 46-116 [facility] Comment on above: Performed By: #### T SH, BNP, CMADM, CMP, T7 ####[facility] Exysxyjwpx5243 [place] [address]Dr. Villa Yanes ALT [Catalytic activity/Vol] 13 U/L Critically low 16-63 [facility] Comment on above: Performed By: #### T SH, BNP, CMADM, CMP, T7 ####[facility] Scscleiwer[address] [place] [address]Dr. Villa Yanes Anion gap [Moles/Vol] 13.1 mmol/L Normal [facility] Comment on above: Performed By: #### T SH, BNP, CMADM, CMP, T7 ####[facility] Veqswqcywv4958 [place] [address]Dr. Villa Yanes AST [Catalytic activity/Vol] 14 U/L Critically low 15-37 [facility] Comment on above: Performed By: #### T SH, BNP, CMADM, CMP, T7 ####[facility] Oigjtwpnsw5318 [place] [address]Dr. Villa Yanes Bilirubin [Mass/Vol] 0.2 mg/dL Normal 0.2-1.0 [facility] Comment on above: Performed By: #### T SH, BNP, CMADM, CMP, T7 ####[facility] Iovtfkglqc6272 [place] [address]Dr. Villa Yanes Calcium [Mass/Vol] 8.7 mg/dL Normal 8.5-10.1 [facility] Comment on above: Performed By: #### T SH, BNP, CMADM, CMP, T7 ####[facility] Khmdjjfjii3547 [place] [address]Dr. Villa Yanes Chloride [Moles/Vol] 107 mmol/L Normal 98-107 [facility] Comment on above: Performed By: #### T SH, BNP, CMADM, CMP, T7 ####[facility] Ezqbuhfhwp4789 [place] [address]Dr. Villa Yanes CO2 [Moles/Vol] 26.3 mmol/L Normal 21.0-32.0 [facility] Comment on above: Performed By: #### T SH, BNP, CMADM, CMP, T7 ####[facility] Xspctjcsht4383 [place] [address]Dr. Villa Yanes Creatinine [Mass/Vol] 1.42 mg/dL Critically high 0.70-1.30 [facility] Comment on above: Performed By: #### T SH, BNP, CMADM, CMP, T7 ####[facility] Jvszymfwow3515 [place] [address]Dr. Villa Yanes EGFR-AF RUSSIAN 58 mL/min/1.73m2 Critically low >=60 [facility] Comment on above: Performed By: #### T SH, BNP, CMADM, CMP, T7 ####[facility] Pporewbubx2541 [place] [address]Dr. Villa Ynaes EGFR-NON AF RUSSIAN 48 mL/min/1.73m2 Critically low >=60 [facility] Comment on above: Performed By: #### T SH, BNP, CMADM, CMP, T7 ####[facility] Iurzqjooxk3595 [place] [address]Dr. Villa Yanes Globulin (S) [Mass/Vol] 3.8 g/dL Normal [facility] Comment on above: Performed By: #### T SH, BNP, CMADM, CMP, T7 ####[facility] Uczansxjjb7941 [place] [address]Dr. Villa Yanes Glucose [Mass/Vol] 144 mg/dL Critically high 74-106 [facility] Comment on above: Performed By: #### T SH, BNP, CMADM, CMP, T7 ####[facility] Pcaupiufzv9755 [place] [address]Dr. Villa Yanes Potassium [Moles/Vol] 4.4 mmol/L Normal 3.5-5.1 [facility] Comment on above: Performed By: #### T SH, BNP, CMADM, CMP, T7 ####[facility] Azqwpblyvq6094 [place] [address]Dr. Villa Yanes Protein [Mass/Vol] 6.6 g/dL Normal 6.4-8.2 [facility] Comment on above: Performed By: #### T SH, BNP, CMADM, CMP, T7 ####[facility] Ypixcpawow7997 [place] [address]Dr. Villa Yanes Sodium [Moles/Vol] 142 mmol/L Normal 136-145 [facility] Comment on above: Performed By: #### T SH, BNP, CMADM, CMP, T7 ####[facility] Zfuybuozgi3203 [place] [address]Dr. Villa Yanes Urea nitrogen [Mass/Vol] 49.0 mg/dL Critically high 7.0-18.0 [facility] Comment on above: Performed By: #### T SH, BNP, CMADM, CMP, T7 ####[facility] Ybwilytmsu6056 [place] [address]Dr. Villa Yanes Urea nitrogen/Creatinine [Mass ratio] 34.5 mg/mg Normal [facility] Comment on above: Performed By: #### T SH, BNP, CMADM, CMP, T7 ####[facility] Gcyeomhrqu8837 [place] [address]Dr. Villa Yanes TSHon 05-08-2022 TSH 0.099 uIU/mL Critically low 0.358-3.740 [facility] Comment on above: Performed By: #### T SH, BNP, CMADM, CMP, T7 ####[facility] Hsotcubpcv9796 [place] [address]Dr. [place]karen Yanes XR SACRUM_COCCYXon 2 XR SACRUM_COCCYX Normal [facility] GLYCOHEMOGLOBIN A1Con 2021 ADA RECOMMENDATION SEE BELOW Normal [facility] Comment on above: Result Comment: ADA RECOMMENDED LIMIT 4.0 - 6.0 ADA THERAPEUTIC TARGET < 7.0 ACTION SUGGESTED > 7.0 Performed By: #### A 1C ####[facility] Ugryrzefoq[address] [place], [place] [address]Dr. Villa Joaquín Glucose [Mass/Vol] 140 mg/dL Normal [facility] Comment on above: Performed By: #### A 1C ####[facility] Prbksbfrtq1743 [place] [address]Dr. Villa Joaquín HbA1c (Bld) [Mass fraction] 6.5 % Critically high 4.5-6.2 [facility] Comment on above: Performed By: #### A 1C ####[facility] Khmptyyvhk9007 [place] [address]Dr. Villa Joaquín CBC AUTO DIFFon 04-03-2022 BASO # 0.1 103/ul Normal 0.0-0.1 [facility] Comment on above: Performed By: #### C BC ####[facility] Hjutjljzro2231 [place] [address]Dr. Villa Joaquín Basophils/100 WBC (Bld) 0.4 % Normal 0.2-2.0 [facility] Comment on above: Performed By: #### C BC ####[facility] Lbgzmwvvsp6750 [place] [phone]. Villa Yanes EO # 0.3 103/ul Normal 0.0-0.7 [facility] Comment on above: Performed By: #### C BC ####[facility] Tsvddnbinq8028 [place] [address]Dr. Villa Yanes Eosinophils/100 WBC (Bld) 2.4 % Normal 0.9-7.0 [facility] Comment on above: Performed By: #### C BC ####[facility] Bqlblhqxee[address] [place], [place] [address]Dr. Villa Yanes Erythrocyte distribution width (RBC) [Ratio] 12.3 % Normal 11.0-15.0 [facility] Comment on above: Performed By: #### C BC ####[facility] Utlbwyqsmv[address] [place], [place] [address]Dr. Villa Yanes Hematocrit (Bld) [Volume fraction] 34.6 % Critically low 42.0-54.0 [facility] Comment on above: Performed By: #### C BC ####[facility] Mtfluuvqxd[address] [place], [place] [address]Dr. Villa Yanes Hemoglobin (Bld) [Mass/Vol] 11.4 g/dL Critically low 14.0-18.0 [facility] Comment on above: Performed By: #### C BC ####[facility] Yjyiroxwpc[address] [place], [place] [address]Dr. Villa Yanes IG # 0.07 10e3/ul Critically high 0.00-0.03 [facility] Comment on above: Performed By: #### C BC ####[facility] Rflqbelmgj7412 [place] [address]Dr. Villa Yanes IG % 0.5 % Normal 0.0-0.5 [facility] Comment on above: Performed By: #### C BC ####[facility] Qdkfsssdef[address] [place], [place] [address]Dr. Villa Yanes LYMPH # 1.9 103/ul Normal 1.2-3.8 [facility] Comment on above: Performed By: #### C BC ####[facility] Kvpizootot9142 [place] [phone]. Villa Yanes Lymphocytes/100 WBC (Bld) 14.4 % Critically low 20.5-60.0 [facility] Comment on above: Performed By: #### C BC ####[facility] Qjycbqqrvg6791 [place] [id number]. Villa Yanes MANUAL DIFF REQ NO Normal [facility] Comment on above: Performed By: #### C BC ####[facility] Ygfjqfitzj5574 [place] [address]Dr. Villa Yanes MCH (RBC) [Entitic mass] 31.4 pg Normal 25.9-34.0 [facility] Comment on above: Performed By: #### C BC ####[facility] [address] [place] [address]Dr. Villa Yanes MCHC (RBC) [Mass/Vol] 32.9 g/dL Normal 29.9-35.2 [facility] Comment on above: Performed By: #### C BC ####[facility] [address]rblihs[address] [place] [address]Dr. Villa Yanes MCV (RBC) [Entitic vol] 95.3 fL Critically high 80.0-94.0 [facility] Comment on above: Performed By: #### C BC ####[facility] Usqqwimiov[address] [place] [address]Dr. Villa Joaquín MONO # 0.8 103/ul Normal 0.3-0.8 [facility] Comment on above: Performed By: #### C BC ####[facility] Vpnixafqnn68[address] [place] [address]Dr. Villa Joaquín Monocytes/100 WBC (Bld) 5.8 % Normal 1.7-12.0 [facility] Comment on above: Performed By: #### C BC ####[facility] Evwfxlesuw[address] [place], [place] [address]Dr. Villa Yanes NEUT # 10.3 103/ul Critically high 1.4-6.5 [facility] Comment on above: Performed By: #### C BC ####[facility] [address]qpod[address] [place] [phone]. Villa Yanes Neutrophils/100 WBC (Bld) 76.5 % Critically high 43.0-75.0 [facility] Comment on above: Performed By: #### C BC ####[facility] [address]xllf99[address] [place] [phone]. Villa Yanes Platelet mean volume (Bld) [Entitic vol] 9.6 fL Normal 9.5-13.5 [facility] Comment on above: Performed By: #### C BC ####[facility] [address]amw[address] [place] [address]Dr. Villa Yanes PLT 283 103/ul Normal 150-450 [facility] Comment on above: Performed By: #### C BC ####[facility] Odadmrtjos5[address] [place] [address]Dr. Villa Yanes RBC 3.63 106/ul Critically low 4.70-6.10 [facility] Comment on above: Performed By: #### C BC ####[facility] Rrbwoseqbi360[address] [place] [phone]. Villa Yanes WBC 13.4 103/ul Critically high 4.0-11.0 [facility] Comment on above: Performed By: #### C BC ####[facility] Pghquvqdsn13[address] [place] [phone]. Villa Yanes CT ABD/PELV W CONon 04-03-[address] ABD/PELV W CON Normal [facility] ER URINE PROFILEon 2 Bilirubin Ql (U) Negative Normal NEGATIVE [facility] Comment on above: Performed By: #### U MICRO, ERUR ####[facility] Wemjtbnric[address] [place], [place] [address]Dr. Villa Yanes Clarity (U) CLEAR Normal CLEAR [facility] Comment on above: Performed By: #### U MICRO, ERUR ####[facility] Qxaasxayme84[address] [place] [phone]. Villa Yanes Color (U) YELLOW Normal YELLOW [facility] Comment on above: Performed By: #### U MICRO, ERUR ####[facility] Crserliors[address] [place] [address]Dr. Villa DILLARDD A micrscopic examina tion will be performed if indicated. Normal [facility] Comment on above: Performed By: #### U MICRO, ERUR ####[facility] Ackamxyhoo[address] [place] [address]Dr. Villa Yanes Glucose Ql (U) Negative Normal NEGATIVE [facility] Comment on above: Performed By: #### U MICRO, ERUR ####[facility] Bdovbliobr[address] [place], [place] [address]Dr. Villa Yanes Hemoglobin Ql (U) Negative Normal NEGATIVE [facility] Comment on above: Performed By: #### U MICRO, ERUR ####[facility] Hfnudytcxy[address] [place], [place] [address]Dr. Villa Yanes Ketones Ql (U) Negative Normal NEGATIVE [facility] Comment on above: Performed By: #### U MICRO, ERUR ####[facility] Nszefyzfcx[address] [place], [place] [address]Dr. Villa Yanes LEUKOCYTES TRACE Abnormal NEGATIVE [facility] Comment on above: Performed By: #### U MICRO, ERUR ####[facility] Wqwvmrsxqy6[address] [place], [place] [address]Dr. Villa Yanes Nitrite Ql (U) Negative Normal NEGATIVE [facility] Comment on above: Performed By: #### U MICRO, ERUR ####[facility] Nhibhcicoy[address] [place], [place] [address]Dr. Villa Yanes pH (U) 6.0 [pH] Normal 5-9 [facility] Comment on above: Performed By: #### U MICRO, ERUR ####[facility] Pjeqgngbms[address] [place], [place] [address]Dr. Villa Yanes Protein (U) [Mass/Vol] 100 mg/dL Abnormal NEGATIVE/ TRACE [facility] Comment on above: Performed By: #### U MICRO, ERUR ####[facility] Jqerhayzda[address] [place], [place] [address]Dr. Villa Yanes SPEC GRAVITY 1.020 Normal 1.005-<=1.0 25 [facility] Comment on above: Performed By: #### U MICRO, ERUR ####[facility] Jyboqojzhc[address] [place] [address]Dr. Villa Yanes UR MICRO IND INDICATED Normal [facility] Comment on above: Performed By: #### U MICRO, ERUR ####[facility] Quoqmnhsqb260[address] [place] [address]Dr. Villa Yanes Urobilinogen Qn (U) 0.2 {Mackenzie'U}/dL Normal 0.2 - 1. 0 [facility] Comment on above: Performed By: #### U MICRO, ERUR ####[facility] Vssfwbvqnn[address] [place], [place] [address]Dr. Villa Yanes LIPASEon 04-03-2022 Lipase [Catalytic activity/Vol] 35.0 U/L Critically low 73.0-393.0 [facility] Comment on above: Performed By: #### L IPA, HSTROPN, CMP ####[facility] Jmimztxaol[address] [place], [place] [address]Dr. Villa Yanes PROF 14(COMP METB)on 022 Albumin [Mass/Vol] 3.2 g/dL Critically low 3.4-5.0 [facility] Comment on above: Performed By: #### L IPA, HSTROPN, CMP ####[facility] Yfrdouhyli[address] [place] [address]Dr. Villa Yanes Albumin/Globulin [Mass ratio] 0.8 {ratio} Normal [facility] Comment on above: Performed By: #### L IPA, HSTROPN, CMP ####[facility] Yqkmykvupz20[address] [place] [address]Dr. Villa Yanes ALP [Catalytic activity/Vol] 131 U/L Critically high 46-116 [facility] Comment on above: Performed By: #### L IPA, HSTROPN, CMP ####[facility] Stalrvglkl[address] [place] [address]Dr. Villa Yanes ALT [Catalytic activity/Vol] U/L Critically low 16-63 [facility] Comment on above: Performed By: #### L IPA, HSTROPN, CMP ####[facility] Oocfrxfxqw[address] [place] [address]Dr. Villa Yanes Anion gap [Moles/Vol] 7.7 mmol/L Normal [facility] Comment on above: Performed By: #### L IPA, HSTROPN, CMP ####[facility] Wjjpvyhzno[address] [place] [address]Dr. Villa Yanes AST [Catalytic activity/Vol] 6 U/L Critically low 15-37 [facility] Comment on above: Performed By: #### L IPA HSTROPN, CMP ####[facility] Xhrcmkmhs[address] [place], [place] [address]Dr. Villa Yanes Bilirubin [Mass/Vol] 0.2 mg/dL Normal 0.2-1.0 [facility] Comment on above: Performed By: #### L IPA HSTROPN, CMP ####[facility] Tevnhbmeac[address] [place], [place] [address]Dr. Villa Yanes Calcium [Mass/Vol] 9.1 mg/dL Normal 8.5-10.1 [facility] Comment on above: Performed By: #### L IPA HSTROPN, CMP ####[facility] M[address]zhhwcv[address] [place], [place] [address]Dr. Villa Yanes Chloride [Moles/Vol] 104 mmol/L Normal 98-107 [facility] Comment on above: Performed By: #### L IPA HSTROPN, CMP ####[facility] Yiwmnyxhbg[address] [place], [place] [address]Dr. Villa Yanes CO2 [Moles/Vol] 29.7 mmol/L Normal 21.0-32.0 [facility] Comment on above: Performed By: #### L IPA, HSTROPN, CMP ####[facility] Nuwqxcuihg[address] [place], [place] [address]Dr. Villa Yanes Creatinine [Mass/Vol] 1.35 mg/dL Critically high 0.70-1.30 [facility] Comment on above: Performed By: #### L IPA, HSTROPN, CMP ####[facility] Brlpqhyewh[address] [place] [address]Dr. Villa Yanes EGFR-AF RUSSIAN >60 Normal >=60 [facility] Comment on above: Performed By: #### L IPA, HSTROPN, CMP ####[facility] Zrw[address]ntlivl[address] [place] [address]Dr. Villa Yanes EGFR-NON AF RUSSIAN 51 mL/min/1.73m2 Critically low >=60 [facility] Comment on above: Performed By: #### L IPA, HSTROPN, CMP ####[facility] Shzchdfcjy[address] [place] [address]Dr. Villa Yanes Globulin (S) [Mass/Vol] 4.2 g/dL Normal [facility] Comment on above: Performed By: #### L IPA, HSTROPN, CMP ####[facility] Rxvipbhexq[address] [place], [place] [address]Dr. Villa Yanes Glucose [Mass/Vol] 116 mg/dL Critically high 74-106 [facility] Comment on above: Performed By: #### L IPA, HSTROPN, CMP ####[facility] Dwmychdrpt[address] [place], [place] [address]Dr. Villa Yanes Potassium [Moles/Vol] 3.4 mmol/L Critically low 3.5-5.1 [facility] Comment on above: Performed By: #### L IPA, HSTROPN, CMP ####[facility] Irdlvk[address]ok[address] [place], [place] [address]Dr. Villa Yanes Protein [Mass/Vol] 7.4 g/dL Normal 6.4-8.2 [facility] Comment on above: Performed By: #### L IPA, HSTROPN, CMP ####[facility] Hgomxievdv[address] [place], [place] [address]Dr. Villa Yanes Sodium [Moles/Vol] 138 mmol/L Normal 136-145 [facility] Comment on above: Performed By: #### L IPA, HSTROPN, CMP ####[facility] K[address] [place], [place] [address]Dr. Villa Yanes Urea nitrogen [Mass/Vol] 35.0 mg/dL Critically high 7.0-18.0 [facility] Comment on above: Performed By: #### L IPA, HSTROPN, CMP ####[facility] Azuzhettex[address] [place] [address]Dr. Villa Yanes Urea nitrogen/Creatinine [Mass ratio] 25.9 mg/mg Normal [facility] Comment on above: Performed By: #### L IPA, HSTROPN, CMP ####[facility] Avvdjxdhbu[address] [place] [address]Dr. Villa Yanes TROPONIN, HIGH SENSITIVITYon 04-03-2022 HSTROP 10.3 pg/mL Normal 4.0-76.1 [facility] Comment on above: Result Comment: CUT- OFF POINTS HAVE BEEN ESTABLISHED BASED ON THE FOURTH UNIVERSAL DEFINITIONS OF MYOCARDIALINFARCTION. THE UPPER REFERENCE LIMIT (URL) OF TROPONIN, DEFINED THE 99TH PERCENTILE OFcTnI DISTRIBUTION IN A REFERENCE POPULATION, HAS BEEN CONFIRMED THE DECISION THRESHOLDFOR SD DIAGNOSIS. Performed By: #### L IPA, HSTROPN, CMP ####[facility] [address]jvb[address] [place] [address]Dr. Villa Yanes URINE MICROSCOPIC ONLYon BACTERIA NONE SEEN Normal NONE SEEN [facility] Comment on above: Performed By: #### U MICRO, ERUR ####[facility] Qhtq[address]rm[address] [place], [place] [address]Dr. Brooklynkaren Yanes Bacteria identified Cx Nom (U) NOT INDICATED Normal [facility] Comment on above: Performed By: #### U MICRO, ERUR ####[facility] Dqq[address]ojbyz[address] [place] [address]Dr. Villa Yanes CAST SEEN Abnormal NONE SEEN [facility] Comment on above: Performed By: #### U MICRO, ERUR ####[facility] Ykdiritzty[address] [place] [address]Dr. Villa Yanes Crystals LM Nom (Urine sed) NONE SEEN Normal NONE SEEN [facility] Comment on above: Performed By: #### U MICRO, ERUR ####[facility] Hfunznllrr[address]99 [place], [place] [address]Uc. Villa Yanes Epithelial cells LM Ql (Urine sed) NONE SEEN Normal NONE SEEN /RARE [facility] Comment on above: Performed By: #### U MICRO, ERUR ####[facility] Lhwmfopvpq8709 [place], [place] [address]Om. Villa Yanes MUCOUS NONE SEEN Normal NONE SEEN [facility] Comment on above: Performed By: #### U MICRO, ERUR ####[facility] Lvblmjvpqq7213 [place], [place] [address]Sz. Villa Yanes RBC NONE SEEN Abnormal 0-2 [facility] Comment on above: Performed By: #### U MICRO, ERUR ####[facility] Uignypxklr6904 [place], [place] [address]Wf. Villa Yanes WBC 0-2 Abnormal NONE SEEN [facility] Comment on above: Performed By: #### U MICRO, ERUR ####[facility] W[address]he[address] [place] [phone]. 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) Ischemic cardiomyopathy (414.8) (I25.5) Paroxysmal atrial fibrillation (427.31) (I48.0) Body mass index (BMI) of 19.9 or less in adult (Z68.1) Cardiac arrest (427.5) (I46.9) PVD (peripheral vascular disease) (443.9) (I73.9) CHF (NYHA class II, ACC/AHA stage C) (428.0) (I50.9) Current smoker (305.1) (F17.200) 1 ppd Orders 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 You may also call [phone]; Status:Complete - Retrospective Authorization; Done: 12Mar2022 Tobacco [...] has had previous high risk non-ST elevation SD earlier this year July 2021, with subsequent revascularization of the RCA with drug-eluting stent and normalization of his LV function originally from 30 now up to 60% as measured by echo at [facility]. He has underlying peripheral vascular disease, ongoing tobacco use, COPD, history of throat cancer with PEG tube. He underwent recent hospitalization at [facility] with significant weight loss and debility and revision of his PEG tube and now clinically improved putting and weight back on. He was diagnosed with paroxysmal atrial fibrillation at the clinic and therefore initiated on Eliquis therapy. [facility] records are reviewed in their [...] Percutaneous endoscopic gastrostomy tube insertion History of HAM SAWYER femoral-popliteal History of Urinary catheter placement Current [...] change i (more content not included)... Normal [employer] Tobacco Screening.on 022 Fall risk assessment a) No falls within the last year [facility] [employer] DO Work Phone: Tobacco use status CP a) Yes [facility] [employer] DO Work Phone: Tobacco Screening. 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 You may also call [phone] for free resources and assistance.; Status:Complete; Done: [id number] Tobacco Use Screening; Status:Complete; Done: [id number] Patient Instructions Please bring all medicines, vitamins, [...] History of Lower back surgery History of HAM SAWYER femoral-popliteal History of Urinary catheter placement Current [...] Screening.on 022 Adult depression screening assessment No -[facility] [employer] marika 250 DO Work Phone: Fall risk assessment a) No falls within the last year [facility] [employer] 250 DO Work Phone: Tobacco use status CPHS a) Yes [facility] [employer] marika 250 DO Work Phone: Tobacco Screening. Yes [facility] [employer] marika 250 DO Work Phone: Basic metabolic 2000 panelon 02-03-2022 Anion gap [Moles/Vol] 12 mmol/L Normal 9-18 [facility] Comment on above: Order Comment: Speci men Type: BLOOD SPECIMENOrdering Facility: [facility] Address: [address] [place] [address] Performed By: #### 1 9123-9, 2777-1, 31973-6 ####[facility] LABCLIA [id number] [place] [id number] [place] Calcium [Mass/Vol] 10.1 mg/dL Normal 8.5-10.2 [facility] Comment on above: Order Comment: Speci men Type: BLOOD SPECIMENOrdering Facility: [facility] Address: [address] [place] [address] Performed By: #### 1 9123-9, 2777-1, 78566-8 ####[facility] LABCLIA [id number] [address] [address] [place] Chloride [Moles/Vol] 100 mmol/L Normal 97-105 [facility] Comment on above: Order Comment: Speci men Type: BLOOD SPECIMENOrdering Facility: [facility] Address: [address] [place], [place] [phone] Performed By: #### 1 9123-9, 27711-21, 27460-6 ####[facility] LABCLIA [id number] [place] [address] [place] CO2 [Moles/Vol] 24 mmol/L Normal 22-30 [facility] Comment on above: Order Comment: Speci men Type: BLOOD SPECIMENOrdering Facility: [facility] Address: [address] [place] [address] Performed By: #### 1 9123-9, 27711-21, 06165-1 ####[facility] LABCLIA [id number] [place] [address] [place] Creatinine [Mass/Vol] 1.14 mg/dL Normal 0.73-1.22 [facility] Comment on above: Order Comment: Speci men Type: BLOOD SPECIMENOrdering Facility: [facility] Address: [address] [place] [address] Performed By: #### 1 9123-9, 27711-21, 32130-8 ####[facility] LABIA [id number] [place] [address] [place] ESTIMATED GLOMERULAR FILTRATION RATE 65 mL/min/1.73m??? Normal >=60 [facility] Comment on above: Order Comment: Speci men Type: BLOOD SPECIMENOrdering Facility: [facility] Address: [address] [place], [place] [phone] Result Comment: Sandra mated Glomerular Filtration Rate [...] GFR. Performed By: #### 1 9123-9, 2777-, 44733-3 ####[facility] LABCLIA [id number] [address] [address] [place] Glucose [Mass/Vol] 209 mg/dL High 74-99 [facility] Comment on above: Order Comment: Speci men Type: BLOOD SPECIMENOrdering Facility: [facility] Address: [address] [place] [phone] Result Comment: The [place] [employer] Association (ADA) provides guidance for cutoff [...] Standards of Medical Care in Diabetes 2016, [place] [employer]. Diabetes Care. 2016.39(Suppl 1). Performed By: #### 1 9123-9, 2777-, 70826-1 ####[facility] LABIA [id number] [place] [address] [place] Potassium [Moles/Vol] 4.8 mmol/L Normal 3.7-5.1 [facility] Comment on above: Order Comment: Speci men Type: BLOOD SPECIMENOrdering Facility: [facility] Address: [address] [place] [address] Performed By: #### 1 9123-9, 2777-, 37643-0 ####[facility] LABIA [id number] [address] [address] [place] Sodium [Moles/Vol] 136 mmol/L Normal 136-144 [facility] Comment on above: Order Comment: Speci men Type: BLOOD SPECIMENOrdering Facility: [facility] Address: [address] [place], [place] [phone] Performed By: #### 1 9123-9, 2777-1, 75320-1 ####[facility] LABCLIA [id number] [place] [address] [place] Urea nitrogen [Mass/Vol] 32 mg/dL High 9-24 [facility] Comment on above: Order Comment: Speci men Type: BLOOD SPECIMENOrdering Facility: [facility] Address: [address] [place], [place] [phone] Performed By: #### 1 9123-9, 2777-1, 52942-5 ####[facility] LABCLIA [id number] [place] [address] [place] CASE MANAGEMon 02-03-2022 CASE MANAGEM Normal [facility] CBC W Auto Differential pane l (Bld)on 02-03-2022 Basophils (Bld) [#/Vol] 10*3/uL Normal <0.11 [facility] Comment on above: Order Comment: Speci men Type: BLOOD SPECIMENOrdering Facility: [facility] Address: [address] [place], [place] [phone] Performed By: #### 5 7021-8 ####[facility] LABCLIA [id number] [place] [address] [place] Basophils/100 WBC (Bld) 0.1 % Normal [facility] Comment on above: Order Comment: Speci men Type: BLOOD SPECIMENOrdering Facility: [facility] Address: [address] [place], [place] [phone] Performed By: #### 5 7021-8 ####[facility] LABCLIA [id number] [place] [address] [place] Differential cell count method Nom (Bld) Auto Normal [facility] Comment on above: Order Comment: Speci men Type: BLOOD SPECIMENOrdering Facility: [facility] Address: [address] [place] [address] Performed By: #### 5 7021-8 ####[facility] LABCLIA [id number] [place] [address] [place] Eosinophils (Bld) [#/Vol] 10*3/uL Normal <0.46 [facility] Comment on above: Order Comment: Speci men Type: BLOOD SPECIMENOrdering Facility: [facility] Address: [address] [place], [place] [phone] Performed By: #### 5 7021-8 ####[facility] LABCLIA [id number] [place] [address] [place] Eosinophils/100 WBC (Bld) 0.0 % Normal [facility] Comment on above: Order Comment: Speci men Type: BLOOD SPECIMENOrdering Facility: [facility] Address: [address] [place], [place] [phone] Performed By: #### 5 7021-8 ####[facility] LABCLIA [id number] [place] [address] [place] Erythrocyte distribution width (RBC) [Ratio] 13.2 % Normal 11.5-15.0 [facility] Comment on above: Order Comment: Speci men Type: BLOOD SPECIMENOrdering Facility: [facility] Address: [address] [place] [address] Performed By: #### 5 7021-8 ####[facility] LABCLIA [id number] [place] [address] [place] Hematocrit (Bld) [Volume fraction] 34.6 % Low 39.0-51.0 [facility] Comment on above: Order Comment: Speci men Type: BLOOD SPECIMENOrdering Facility: [facility] Address: [address] [place], [place] [phone] Performed By: #### 5 7021-8 ####[facility] LABCLIA [id number] [address] [place] Hemoglobin (Bld) [Mass/Vol] 11.6 g/dL Low 13.0-17.0 [facility] Comment on above: Order Comment: Speci men Type: BLOOD SPECIMENOrdering Facility: [facility] Address: [address] [place] [address] Performed By: #### 5 7021-8 ####[facility] LABCLIA [id number] [address] OF [facility] IMMATURE GRAN % 1.0 % Normal [facility] Comment on above: Order Comment: Speci men Type: BLOOD SPECIMENOrdering Facility: [facility] Address: [address] [place] [address] Performed By: #### 5 7021-8 ####[facility] LABCLIA [id number] [address] STATES OF [facility] IMMATURE GRAN ABS 0.15 k/uL High <0.10 [facility] Comment on above: Order Comment: Speci men Type: BLOOD SPECIMENOrdering Facility: [facility] Address: [address] [place], [place] [phone] Performed By: #### 5 7021-8 ####[facility] LABIA [id number] [place] [address] [place] [place] Lymphocytes (Bld) [#/Vol] 0.79 10*3/uL Low 1.00-4.00 [facility] Comment on above: Order Comment: Speci men Type: BLOOD SPECIMENOrdering Facility: [facility] Address: [address] [place], [place] [id number] Performed By: #### 5 7021-8 ####[facility] LABCLIA [id number] [address] [place] Lymphocytes/100 WBC (Bld) 5.2 % Normal [facility] Comment on above: Order Comment: Speci men Type: BLOOD SPECIMENOrdering Facility: [facility] Address: [address] [place], [place] [address] Performed By: #### 5 7021-8 ####[facility] [id number] [address] MCH (RBC) [Entitic mass] 32.0 pg Normal 26.0-34.0 [facility] Comment on above: Order Comment: Speci men Type: BLOOD SPECIMENOrdering Facility: [facility] Address: [address] [place], [place] [address] Performed By: #### 5 7021-8 ####[facility] [id number] [address] [place] MCHC (RBC) [Mass/Vol] 33.5 g/dL Normal 30.5-36.0 [facility] Comment on above: Order Comment: Speci men Type: BLOOD SPECIMENOrdering Facility: [facility] Address: [address] [place], [place] [address] Performed By: #### 5 7021-8 ####[facility] [id number] [address] [place] MCV (RBC) [Entitic vol] 95.6 fL Normal 80.0-100.0 [facility] Comment on above: Order Comment: Speci men Type: BLOOD SPECIMENOrdering Facility: [facility] Address: [address] [place], [place] [address] Performed By: #### 5 7021-8 ####[facility] [id number] [place] [address] [place] Monocytes (Bld) [#/Vol] 0.10 10*3/uL Normal <0.87 [facility] Comment on above: Order Comment: Speci men Type: BLOOD SPECIMENOrdering Facility: [facility] Address: [address] [place], [place] [address] Performed By: #### 5 7021-8 ####[facility] LABCLIA [id number] [address] [address] [place] Monocytes/100 WBC (Bld) 0.7 % Normal [facility] Comment on above: Order Comment: Speci men Type: BLOOD SPECIMENOrdering Facility: [facility] Address: [address] [place], [place] [address] Performed By: #### 5 7021-8 ####[facility] LABCLIA [id number] [place] [address] [place] Neutrophils (Bld) [#/Vol] 14.02 10*3/uL High 1.45-7.50 [facility] Comment on above: Order Comment: Speci men Type: BLOOD SPECIMENOrdering Facility: [facility] Address: [address] [place] [address] Performed By: #### 5 7021-8 ####[facility] LABCLIA [id number] [place] [address] [place] Neutrophils/100 WBC (Bld) 93.0 % Normal [facility] Comment on above: Order Comment: Speci men Type: BLOOD SPECIMENOrdering Facility: [facility] Address: [address] [place] [address] Performed By: #### 5 7021-8 ####[facility] LABCLIA [id number] [place] [address] [place] Nucleated RBC (Bld) [#/Vol] 10*3/uL Normal <0.01 [facility] Comment on above: Order Comment: Speci men Type: BLOOD SPECIMENOrdering Facility: [facility] Address: [address] [place] [address] Performed By: #### 5 7021-8 ####[facility] LABCLIA [id number] [place] [address] [place] Nucleated RBC/100 WBC (Bld) [Ratio] 0.0 /100 WBC Normal [facility] Comment on above: Order Comment: Speci men Type: BLOOD SPECIMENOrdering Facility: [facility] Address: [address] [place], [place] [address] Performed By: #### 5 7021-8 ####[facility] LABCLIA [id number] [place] [address] [place] Platelet mean volume (Bld) [Entitic vol] 10.3 fL Normal 9.0-12.7 [facility] Comment on above: Order Comment: Speci men Type: BLOOD SPECIMENOrdering Facility: [facility] Address: [address] [place], [place] [address] Performed By: #### 5 7021-8 ####[facility] LABCLIA [id number] [place] [address] [place] Platelets (Bld) [#/Vol] 351 10*3/uL Normal 150-400 [facility] Comment on above: Order Comment: Speci men Type: BLOOD SPECIMENOrdering Facility: [facility] Address: [address] [place], [place] [address] Performed By: #### 5 7021-8 ####[facility] LABCLIA [id number] [place] [address] [place] RBC (Bld) [#/Vol] 3.62 10*6/uL Low 4.20-6.00 [facility] Comment on above: Order Comment: Speci men Type: BLOOD SPECIMENOrdering Facility: [facility] Address: [address] [place], [place] [address] Performed By: #### 5 7021-8 ####[facility] LABCLIA [id number] [place] [address] [place] WBC (Bld) [#/Vol] 15.08 10*3/uL High 3.70-11.00 [facility] Comment on above: Order Comment: Speci men Type: BLOOD SPECIMENOrdering Facility: [facility] Address: [address] [place] [phone] Performed By: #### 5 7021-8 ####[facility] LABIA [id number] [place] [address] [place] Magnesium SerPl-mCncon 02-03 Magnesium [Mass/Vol] 2.1 mg/dL Normal 1.7-2.3 [facility] Comment on above: Order Comment: Speci men Type: BLOOD SPECIMENOrdering Facility: [facility] Address: [address] [place], [place] [address] Performed By: #### 1 9123-9, 2777-1, 69808-5 ####[facility] LABIA [id number] [place] [address] [place] NURSING PROGon 02-03-2022 NURSING PROG Normal [facility] NUTRITIONon 02-03-2022 NUTRITION Normal [facility] PT EDon 02-03-2022 PT ED Normal [facility] Phosphate SerPl-mCncon 02-03 Phosphate [Mass/Vol] 3.2 mg/dL Normal 2.7-4.8 [facility] Comment on above: Order Comment: Speci men Type: BLOOD SPECIMENOrdering Facility: [facility] Address: [address] [place] [phone] Performed By: #### 1 9123-9, 2777-1, 14873-2 ####[facility] LABIA [id number] [place] [id number] [place] THERAPY NTon 02-03-2022 THERAPY NT Normal [facility] THERAPY NT Normal [facility] ANES POSTPROC EVALon 022 ANES POSTPROC EVAL Normal [facility] ANES PRE-OPon 02-02-2022 ANES PRE-OP Normal [facility] BRIEF OP NOTon 02-02-2022 BRIEF OP NOT Normal [facility] CNPNon 02-02-2022 CNPN Normal [facility] OPERATIVE NOon 02-02-2022 OPERATIVE NO Normal [facility] CNPNon 01-27-2022 CNPN Normal [facility] HISTORY PHYSICALon 2 HISTORY PHYSICAL Normal [facility] NURSING PROGon 01-24-2022 NURSING PROG Normal [facility] XR ABDOMEN 1V SUPINEon 01-24 XR ABDOMEN 1V SU[facility]INE [facility] XR ABDOMEN 1V SUPINE [facility] CNOVon 2022 CNOV Normal [facility] Tobacco Screening.on 022 Fall risk assessment b) One or more fall s in the last year -[facility]-Sandu marika 250 DO Work Phone: Tobacco use status CP a) Yes MP-[facility]u marika 250 DO Work Phone: Tobacco Screening. Yes [facility]u marika 250 DO Work Phone: CNOVon 12-31-2021 CNOV Normal [facility] CNOV Normal [facility] HISTORY PHYSICALon 2 HISTORY PHYSICAL Normal [facility] CULTURE URINEon 12-21-2021 CULTURE URINE Normal [facility] Comment on above: Performed By: #### U RCX ####[facility] Tpslnustko[address] [place] [address]Dr. Villa Yanes UA RANDOM W/MICROSCOPICon BACTERIA LARGE Abnormal NONE SEEN [facility] Comment on above: Performed By: #### U AMIC ####[facility] Aomjsuhcxp77[address] [place] [phone]. Villa Yanes Bilirubin Ql (U) Negative Normal NEGATIVE [facility] Comment on above: Performed By: #### U AMIC ####[facility] Efoumvtzpz0124 [place] [phone]. Villa Yanes CAST NONE SEEN Normal NONE SEEN [facility] Comment on above: Performed By: #### U AMIC ####[facility] Bwpklrcnkk84[address] [place] [address]Dr. Villa Yanes Clarity (U) CLEAR Normal CLEAR [facility] Comment on above: Performed By: #### U AMIC ####[facility] Qitjzexqiz[address] [place], [place] [address]Dr. Villa Yanes Color (U) LT. YELLOW Normal YELLOW [facility] Comment on above: Performed By: #### U AMIC ####[facility] Hvdcxr[address]uq[address] [place], [place] [address]Dr. Villa Yanes Crystals LM Nom (Urine sed) NONE SEEN Normal NONE SEEN [facility] Comment on above: Performed By: #### U AMIC ####[facility] Skenoedqto[address] [place], [place] [address]Dr. Villa Yanes Epithelial cells LM Ql (Urine sed) FEW Abnormal NONE SEEN /RARE [facility] Comment on above: Performed By: #### U AMIC ####[facility] Zwpfreectl26[address] [place], [place] [address]Dr. Villa Yanes Glucose Ql (U) Negative Normal NEGATIVE [facility] Comment on above: Performed By: #### U AMIC ####[facility] Umpbwwzjkj[address] [place], [place] [address]Dr. Villa Yanes Hemoglobin Ql (U) Negative Normal NEGATIVE [facility] Comment on above: Performed By: #### U AMIC ####[facility] Pkypisikzx[address] [place], [place] [address]Dr. Villa Yanes Ketones Ql (U) Negative Normal NEGATIVE [facility] Comment on above: Performed By: #### U AMIC ####[facility] Cujfxyxwhk[address] [place], [place] [address]Dr. Villa Yanes LEUKOCYTES LARGE Abnormal NEGATIVE [facility] Comment on above: Performed By: #### U AMIC ####[facility] Bxqkjscyfu42[address] [place], [place] [address]Dr. Villa Yanes MUCOUS NONE SEEN Normal NONE SEEN [facility] Comment on above: Performed By: #### U AMIC ####[facility] Ottsmhzzpw[address] [place], [place] [address]Dr. Villa Yanes Nitrite Ql (U) Negative Normal NEGATIVE [facility] Comment on above: Performed By: #### U AMIC ####[facility] Yyodsxxbxs2945 [place] [address]Dr. Villa Yanes pH (U) 7.5 [pH] Normal 5-9 [facility] Comment on above: Performed By: #### U AMIC ####[facility] Ahoitydaex4[address] [place] [phone]. Villa Yanes RBC NONE SEEN Abnormal 0-2 [facility] Comment on above: Performed By: #### U AMIC ####[facility] Qfuwuhxphl3960 [place] [address]Dr. Villa Yanes SPEC GRAVITY 1.015 Normal 1.005-<=1.0 25 [facility] Comment on above: Performed By: #### U AMIC ####[facility] Bhoexxorfy[address] [place], [place] [address]Dr. Villa Yanes UA PROTEIN 100 mg/dl Abnormal NEGATIVE/ TRACE [facility] Comment on above: Performed By: #### U AMIC ####[facility] Rsxcastjhr[address] [place], [place] [address]Dr. Villa Yanes Urobilinogen Qn (U) 0.2 {Mackenzie'U}/dL Normal 0.2 - 1. 0 [facility] Comment on above: Performed By: #### U AMIC ####[facility] Sascsecndi[address] [place], [place] [address]Dr. Villa Yanes WBC 50-75 Abnormal NONE SEEN [facility] Comment on above: Performed By: #### U AMIC ####[facility] Heecvagrbu[address] [place], [place] [address]Dr. Villa Joaquín CBC AUTO DIFFon 12-18-2021 BASO # 0.1 103/ul Normal 0.0-0.1 [facility] Comment on above: Performed By: #### C BC ####[facility] Sboiueyike[address] [place], [place] [address]Dr. Villa Yanes Basophils/100 WBC (Bld) 0.7 % Normal 0.2-2.0 [facility] Comment on above: Performed By: #### C BC ####[facility] Pqemepbfpc4[address] [place] [phone]. Villa Yanes EO # 0.6 103/ul Normal 0.0-0.7 [facility] Comment on above: Performed By: #### C BC ####[facility] Xmkhsubqll5258 [place] [phone]. Villa Yanes Eosinophils/100 WBC (Bld) 4.0 % Normal 0.9-7.0 [facility] Comment on above: Performed By: #### C BC ####[facility] Hmynphirzk[address] [place], [place] [address]Dr. Villa Yanes Erythrocyte distribution width (RBC) [Ratio] 13.9 % Normal 11.0-15.0 [facility] Comment on above: Performed By: #### C BC ####[facility] Jfbuyufibd[address] [place], [place] [address]Dr. Villa Yanes Hematocrit (Bld) [Volume fraction] 33.4 % Critically low 42.0-54.0 [facility] Comment on above: Performed By: #### C BC ####[facility] Jcepjqiwbo[address] [place], [place] [address]Dr. Villa Yanes Hemoglobin (Bld) [Mass/Vol] 11.1 g/dL Critically low 14.0-18.0 [facility] Comment on above: Performed By: #### C BC ####[facility] Ozlyjxzqnv[address] [place], [place] [address]Dr. Villa Yanes IG # 0.15 10e3/ul Critically high 0.00-0.03 [facility] Comment on above: Performed By: #### C BC ####[facility] Hpwllgmzvi[address] [place], [place] [address]Dr. Villa Yanes IG % 1.0 % Critically high 0.0-0.5 [facility] Comment on above: Performed By: #### C BC ####[facility] Djqwxvymeq[address] [place], [place] [address]Dr. Villa Yanes LYMPH # 1.9 103/ul Normal 1.2-3.8 [facility] Comment on above: Performed By: #### C BC ####[facility] Bjforcejbk9567 [place] [phone]. Villa Joaquín Lymphocytes/100 WBC (Bld) 12.2 % Critically low 20.5-60.0 [facility] Comment on above: Performed By: #### C BC ####[facility] Acadacykip7714 [place] [phone]. Villa Yanes MANUAL DIFF REQ NO Normal [facility] Comment on above: Performed By: #### C BC ####[facility] Ylvpveojjw3004 [place] [phone]. [place]karen Yanes MCH (RBC) [Entitic mass] 31.3 pg Normal 25.9-34.0 [facility] Comment on above: Performed By: #### C BC ####[facility] Nodluqhjaj[address] [place] [address]Dr. Villa Yanes MCHC (RBC) [Mass/Vol] 33.2 g/dL Normal 29.9-35.2 [facility] Comment on above: Performed By: #### C BC ####[facility] Wjajmgnrvg0241 [place] [address]Dr. [place]karen Yanes MCV (RBC) [Entitic vol] 94.1 fL Critically high 80.0-94.0 [facility] Comment on above: Performed By: #### C BC ####[facility] Eldhpxedha[address] [place], [place] [address]Dr. Villa Yanes MONO # 0.9 103/ul Critically high 0.3-0.8 [facility] Comment on above: Performed By: #### C BC ####[facility] Kxuvprhdmt[address] [place] [address]Dr. [place]karen Yanes Monocytes/100 WBC (Bld) 5.9 % Normal 1.7-12.0 [facility] Comment on above: Performed By: #### C BC ####[facility] Z[address]csq[address] [place], [place] [address]Dr. Villa Yanes NEUT # 12.0 103/ul Critically high 1.4-6.5 [facility] Comment on above: Performed By: #### C BC ####[facility] F[address]qhlukyd9743 [place] [phone]. Villa Yanes Neutrophils/100 WBC (Bld) 76.2 % Critically high 43.0-75.0 [facility] Comment on above: Performed By: #### C BC ####[facility] Xkxmeecabp3279 [place] [phone]. Villa Yanes Platelet mean volume (Bld) [Entitic vol] 9.8 fL Normal 9.5-13.5 [facility] Comment on above: Performed By: #### C BC ####[facility] Gbimvpnrkx7464 [place] [address]Dr. Villa Yanes PLT 397 103/ul Normal 150-450 [facility] Comment on above: Performed By: #### C BC ####[facility] Hsttoawzur1635 [place] [phone]. Villa Yanes RBC 3.55 106/ul Critically low 4.70-6.10 [facility] Comment on above: Performed By: #### C BC ####[facility] Rmatsdjwid3581 [place] [address]Dr. iVlla Yanes WBC 15.7 103/ul Critically high 4.0-11.0 [facility] Comment on above: Performed By: #### C BC ####[facility] Vmsrutfvyr1156 [place] [phone]. Villa Yanes GLYCOHEMOGLOBIN A1Con 2021 ADA RECOMMENDATION SEE BELOW Normal [facility] Comment on above: Result Comment: ADA RECOMMENDED LIMIT 4.0 - 6.0 ADA THERAPEUTIC TARGET < 7.0 ACTION SUGGESTED > 7.0 Performed By: #### A 1C ####[facility] Fusxgalkmk8439 [place] [address]Dr. Villa Yanes Glucose [Mass/Vol] 134 mg/dL Normal [facility] Comment on above: Performed By: #### A 1C ####[facility] Zxvgljoavk7217 [place] [phone]. Villa Yanes HbA1c (Bld) [Mass fraction] 6.3 % Critically high 4.5-6.2 [facility] Comment on above: Performed By: #### A 1C ####[facility] Tkzthkixbh8498 [place] [address]Dr. Villa Yanes MAGNESIUMon 12-18-2021 Magnesium [Mass/Vol] 2.2 mg/dL Normal 1.8-2.4 [facility] Comment on above: Performed By: #### M Arabella, PHOS, TSH, CMP ####[facility] Hqlmsmfmtr9038 [place] [address]Dr. Villa Yanes PHOSPHORUSon 12-18-2021 Phosphate [Mass/Vol] 3.6 mg/dL Normal 2.6-4.7 [facility] Comment on above: Performed By: #### Dick Bell, PHOS, TSH, CMP ####[facility] Heatfunjkw7904 [place] [address]Dr. Villa Yanes PROF 14(COMP METB)on 022 Albumin [Mass/Vol] 3.2 g/dL Critically low 3.4-5.0 [facility] Comment on above: Performed By: #### Dick Bell, PHOS, TSH, CMP ####[facility] Nlbjsydssf6773 [place] [address]Dr. Villa Yanes Albumin/Globulin [Mass ratio] 0.8 {ratio} Normal [facility] Comment on above: Performed By: #### Dick Bell, PHOS, TSH, CMP ####[facility] Tdjulppaii4393 [place] [address]Dr. Villa Yanes ALP [Catalytic activity/Vol] 141 U/L Critically high 46-116 [facility] Comment on above: Performed By: #### Dick Bell, PHOS, TSH, CMP ####[facility] Kiwefzfqye2794 [place] [address]Dr. Villa Yanes ALT [Catalytic activity/Vol] 8 U/L Critically low 16-63 [facility] Comment on above: Performed By: #### Dick G, PHOS, TSH, CMP ####[facility] Kdeqpeyfdm1693 [place] [address]Dr. Villa Yanes Anion gap [Moles/Vol] 13.1 mmol/L Normal [facility] Comment on above: Performed By: #### Dick Bell, PHOS, TSH, CMP ####[facility] Zltymvibcp[address] [place], [place] [address]Dr. Villa Yanes AST [Catalytic activity/Vol] 5 U/L Critically low 15-37 [facility] Comment on above: Performed By: #### Dick Bell, PHOS, TSH, CMP ####[facility] Ihbdbdeazm[address] [place], [place] [address]Dr. Villa Yanes Bilirubin [Mass/Vol] 0.3 mg/dL Normal 0.2-1.0 [facility] Comment on above: Performed By: #### Dick Bell, PHOS, TSH, CMP ####[facility] Dtgqkljqwq[address] [place], [place] [address]Dr. Villa Yanes Calcium [Mass/Vol] 9.3 mg/dL Normal 8.5-10.1 [facility] Comment on above: Performed By: #### Dick Bell, PHOS, TSH, CMP ####[facility] Wzpizrfthk[address] [place], [place] [address]Dr. Villa Yanes Chloride [Moles/Vol] 102 mmol/L Normal 98-107 [facility] Comment on above: Performed By: #### Dick Bell, PHOS, TSH, CMP ####[facility] Xdflvfblzu91[address] [place], [place] [address]Dr. Villa Yanes CO2 [Moles/Vol] 28.8 mmol/L Normal 21.0-32.0 [facility] Comment on above: Performed By: #### Dick Bell, PHOS, TSH, CMP ####[facility] Ixqnambukj[address] [place], [place] [address]Dr. Villa Yanes Creatinine [Mass/Vol] 1.20 mg/dL Normal 0.70-1.30 [facility] Comment on above: Performed By: #### Dick G, PHOS, TSH, CMP ####[facility] Yhmvtiigjz[address] [place], [place] [address]Dr. Villa Yanes EGFR-AF RUSSIAN >60 Normal >=60 [facility] Comment on above: Performed By: #### M G, PHOS, TSH, CMP ####[facility] Zxbirimgkl2459 [place] [address]Dr. Villa Yanes EGFR-NON AF RUSSIAN 58 mL/min/1.73m2 Critically low >=60 [facility] Comment on above: Performed By: #### M G, PHOS, TSH, CMP ####[facility] Ypgxralyyd[address] [place], [place] [address]Dr. Villa Yanes Globulin (S) [Mass/Vol] 4.0 g/dL Normal [facility] Comment on above: Performed By: #### M G, PHOS, TSH, CMP ####[facility] Cjpaglaqim[address] [place], [place] [address]Dr. Villa Yanes Glucose [Mass/Vol] 143 mg/dL Critically high 74-106 T [facility] Comment on above: Performed By: #### M G, PHOS, TSH, CMP ####[facility] Nvshzguszs[address] [place], [place] [address]Dr. Villa Yanes Potassium [Moles/Vol] 4.9 mmol/L Normal 3.5-5.1 [facility] Comment on above: Performed By: #### M G, PHOS, TSH, CMP ####[facility] Uzkkgosshq[address] [place], [place] [address]Dr. Villa Yanes Protein [Mass/Vol] 7.2 g/dL Normal 6.4-8.2 [facility] Comment on above: Performed By: #### M G, PHOS, TSH, CMP ####[facility] Rjntyckrwt[address] [place], [place] [address]Dr. Villa Yanes Sodium [Moles/Vol] 139 mmol/L Normal 136-145 [facility] Comment on above: Performed By: #### M G, PHOS, TSH, CMP ####[facility] Ibxosverwh[address] [place], [place] [address]Dr. Villa Yanes Urea nitrogen [Mass/Vol] 46.0 mg/dL Critically high 7.0-18.0 [facility] Comment on above: Performed By: #### M G, PHOS, TSH, CMP ####[facility] Yfcbdjctwh0421 [place], [place] [address]Mx. Villa Yanes Urea nitrogen/Creatinine [Mass ratio] 38.3 mg/mg Normal [facility] Comment on above: Performed By: #### M G, PHOS, TSH, CMP ####[facility] Krvawufegt0547 [place], [place] [address]Fd. Villa Yanes TSHon 12-18-2021 TSH 0.279 uIU/mL Critically low 0.358-3.740 [facility] Comment on above: Performed By: #### M G, PHOS, TSH, CMP ####[facility] Svkmktibag7711 [place], [place] [address]Sc. Villa Yanes CNPNon 12-13-2021 CNPN Normal [facility] Bacteria Ur Culton 2 Bacteria identified Cx Nom (U) Abnormal [facility] Comment on above: Performed By: #### 6 30-4 ####[facility] LABCLIA [id number] [address] [place] CNPNon 12-04-2021 CNPN Normal [facility] CT KIDNEY WO/W IVCONon 12-04 Radiology Result ACTIONABLE Abnormal [facility] CNPTOUTREACHon 12-03-2021 CNPTOUTREACH Normal [facility] CT KIDNEY WO/W IVCONon 12-02 CT KIDNEY WO/W IVCON Invalid Interpretation Code [facility] CNOVon 11-27-2021 CNOV Normal [facility] CNPNon 11-27-2021 CNPN Normal [facility] CNPTOUTREACHon 11-27-2021 CNPTOUTREACH Normal [facility] CASE MANAGEMon 11-20-2021 CASE MANAGEM Normal [facility] CBC panel Auto (Bld)on 11-20 Erythrocyte distribution width (RBC) [Ratio] 13.4 % Normal 11.5-15.0 [facility] Comment on above: Order Comment: Speci men Type: BLOOD SPECIMENOrdering Facility: [facility] Address: [address] [place], [place] [address] Performed By: #### 5 8410-2 ####[facility] LABCLIA [id number] [place] [address] [place] Hematocrit (Bld) [Volume fraction] 26.6 % Low 39.0-51.0 [facility] Comment on above: Order Comment: Speci men Type: BLOOD SPECIMENOrdering Facility: [facility] Address: [address] [place], [place] [address] Performed By: #### 5 8410-2 ####[facility] LABIA [id number] [address] [place] Hemoglobin (Bld) [Mass/Vol] 8.9 g/dL Low 13.0-17.0 [facility] Comment on above: Order Comment: Speci men Type: BLOOD SPECIMENOrdering Facility: [facility] Address: [address] [place], [place] [address] Performed By: #### 5 8410-2 ####[facility] LABIA [id number] [place] [address] [place] MCH (RBC) [Entitic mass] 30.9 pg Normal 26.0-34.0 [facility] Comment on above: Order Comment: Speci men Type: BLOOD SPECIMENOrdering Facility: [facility] Address: [address] [place], [place] [address] Performed By: #### 5 8410-2 ####[facility] LABCLIA [id number] [place] [address] [place] MCHC (RBC) [Mass/Vol] 33.5 g/dL Normal 30.5-36.0 [facility] Comment on above: Order Comment: Speci men Type: BLOOD SPECIMENOrdering Facility: [facility] Address: [address] [place], [place] [address] Performed By: #### 5 8410-2 ####[facility] LABCLIA [id number] [place] [address] [place] MCV (RBC) [Entitic vol] 92.4 fL Normal 80.0-100.0 [facility] Comment on above: Order Comment: Speci men Type: BLOOD SPECIMENOrdering Facility: [facility] Address: [address] [place], [place] [address] Performed By: #### 5 8410-2 ####[facility] LABIA [id number] [address] [place] Nucleated RBC (Bld) [#/Vol] 10*3/uL Normal <0.01 [facility] Comment on above: Order Comment: Speci men Type: BLOOD SPECIMENOrdering Facility: [facility] Address: [address] [place], [place] [address] Performed By: #### 5 8410-2 ####[facility] LABIA [id number] [address] [place] Platelet mean volume (Bld) [Entitic vol] 10.4 fL Normal 9.0-12.7 [facility] Comment on above: Order Comment: Speci men Type: BLOOD SPECIMENOrdering Facility: [facility] Address: [address] [place], [place] [address] Performed By: #### 5 8410-2 ####[facility] LABIA [id number] [place] [address] [place] Platelets (Bld) [#/Vol] 240 10*3/uL Normal 150-400 [facility] Comment on above: Order Comment: Speci men Type: BLOOD SPECIMENOrdering Facility: [facility] Address: [address] [place], [place] [address] Performed By: #### 5 8410-2 ####[facility] LABCLIA [id number] [place] [address] [place] RBC (Bld) [#/Vol] 2.88 10*6/uL Low 4.20-6.00 [facility] Comment on above: Order Comment: Speci men Type: BLOOD SPECIMENOrdering Facility: [facility] Address: [address] [place] [address] Performed By: #### 5 8410-2 ####[facility] LABCLIA [id number] [place] [address] [place] WBC (Bld) [#/Vol] 9.03 10*3/uL Normal 3.70-11.00 [facility] Comment on above: Order Comment: Speci men Type: BLOOD SPECIMENOrdering Facility: [facility] Address: [address] [place] [address] Performed By: #### 5 8410-2 ####[facility] LABCLIA [id number] [place] [address] [place] CNDSon 11-20-2021 CNDS Normal [facility] CNPNon 11-20-2021 CNPN Normal [facility] Magnesium SerPl-mCncon 11-20 Magnesium [Mass/Vol] 2.1 mg/dL Normal 1.7-2.3 [facility] Comment on above: Order Comment: Speci men Type: BLOOD SPECIMENOrdering Facility: [facility] Address: [address] [place] [address] Performed By: #### 2 4362-6, 80995-8 ####[facility] LABCLIA [id number] [place] [address] [place] NURSING PROGon 11-20-2021 NURSING PROG Normal [facility] Renal function 2000 panelon 11-20-2021 Albumin [Mass/Vol] 2.5 g/dL Low 3.9-4.9 [facility] Comment on above: Order Comment: Speci men Type: BLOOD SPECIMENOrdering Facility: [facility] Address: [address] [place], [place] [address] Performed By: #### 2 4362-6 ####[facility] LABCLIA [id number] [facility] [place] [address] [place] Anion gap [Moles/Vol] 6 mmol/L Low 9-18 [facility] Comment on above: Order Comment: Speci men Type: BLOOD SPECIMENOrdering Facility: [facility] Address: [address] [place], [place] [address] Performed By: #### 2 4362-6 ####[facility] LABCLIA [id number] [facility] [place] [address] [place] Calcium [Mass/Vol] 7.9 mg/dL Low 8.5-10.2 [facility] Comment on above: Order Comment: Speci men Type: BLOOD SPECIMENOrdering Facility: [facility] Address: [address] [place], [place] [address] Performed By: #### 2 4362-6 ####[facility] LABCLIA [id number] [place] [address] [place] Chloride [Moles/Vol] 101 mmol/L Normal 97-105 [facility] Comment on above: Order Comment: Speci men Type: BLOOD SPECIMENOrdering Facility: [facility] Address: [address] [place] [address] Performed By: #### 2 4362-6 ####[facility] LABCLIA [id number] [place] [address] [place] CO2 [Moles/Vol] 30 mmol/L Normal 22-30 [facility] Comment on above: Order Comment: Speci men Type: BLOOD SPECIMENOrdering Facility: [facility] Address: [address] [place] [address] Performed By: #### 2 4362-6 ####[facility] LABCLIA [id number] [place] [id number] [place] Creatinine [Mass/Vol] 1.15 mg/dL Normal 0.73-1.22 [facility] Comment on above: Order Comment: Misbah padilla Type: BLOOD SPECIMENOrdering Facility: [facility] Address: [address] [place] [phone] Performed By: #### 2 4362-6 ####[facility] LABCLIA [id number] [place] [address] [place] ESTIMATED GLOMERULAR FILTRATION RATE 65 mL/min/1.73m??? Normal >=60 [facility] Comment on above: Order Comment: Misbah padilla Type: BLOOD SPECIMENOrdering Facility: [facility] Address: [address] Result Comment: Sandra mated Glomerular Filtration [...] actual GFR. Performed By: #### 2 4362-6 ####[facility] LABCLIA [id number] [place] [address] [place] Glucose [Mass/Vol] 135 mg/dL High 74-99 [facility] Comment on above: Order Comment: Misbah valerie Type: BLOOD SPECIMENOrdering Facility: [facility] Address: [address] Result Comment: The [place] [employer] (ADA) provides guidance for cutoff [...] Standards of Medical Care in Diabetes 2016, [place] [employer]. Diabetes Care. 2016.39(Suppl 1). Performed By: #### 2 4362-6 ####[facility] LABCLIA [id number] [place] [address] [place] Phosphate [Mass/Vol] 3.8 mg/dL Normal 2.7-4.8 [facility] Comment on above: Order Comment: Speci men Type: BLOOD SPECIMENOrdering Facility: [facility] Address: [address] [place], [place] [address] Performed By: #### 2 4362-6 ####[facility] LABIA [id number] [place] [address] [place] Potassium [Moles/Vol] 4.1 mmol/L Normal 3.7-5.1 [facility] Comment on above: Order Comment: Speci men Type: BLOOD SPECIMENOrdering Facility: [facility] Address: [address] [place] [address] Performed By: #### 2 4362-6 ####[facility] LABIA [id number] [place] [address] [place] Sodium [Moles/Vol] 137 mmol/L Normal 136-144 [facility] Comment on above: Order Comment: Speci men Type: BLOOD SPECIMENOrdering Facility: [facility] Address: [address] [place], [place] [address] Performed By: #### 2 4362-6 ####[facility] LABIA [id number] [place] [address] [place] Urea nitrogen [Mass/Vol] 17 mg/dL Normal 9-24 [facility] Comment on above: Order Comment: Speci men Type: BLOOD SPECIMENOrdering Facility: [facility] Address: [address] [place] [address] Performed By: #### 2 4362-6 ####[facility] LABIA [id number] [place] [address] [place] Albumin [Mass/Vol] 2.5 g/dL Low 3.9-4.9 [facility] Comment on above: Order Comment: Speci men Type: BLOOD SPECIMENOrdering Facility: [facility] Address: [address] [place] [address] Performed By: #### 2 4362-6, ####[facility] LABCLIA [id number] [place] [address] [place] Anion gap [Moles/Vol] 7 mmol/L Low 9-18 [facility] Comment on above: Order Comment: Speci men Type: BLOOD SPECIMENOrdering Facility: [facility] Address: [address] [place] [address] Performed By: #### 2 4362-6, ####[facility] LABCLIA [id number] [place] [address] [place] Calcium [Mass/Vol] 8.2 mg/dL Low 8.5-10.2 [facility] Comment on above: Order Comment: Speci men Type: BLOOD SPECIMENOrdering Facility: [facility] Address: [address] [place] [address] Performed By: #### 2 4362-6, ####[facility] LABCLIA [id number] [place] [address] [place] Chloride [Moles/Vol] 104 mmol/L Normal 97-105 [facility] Comment on above: Order Comment: Speci men Type: BLOOD SPECIMENOrdering Facility: [facility] Address: [address] [place] [address] Performed By: #### 2 4362-6, ####[facility] LABCLIA [id number] [place] [id number] [place] CO2 [Moles/Vol] 28 mmol/L Normal 22-30 [facility] Comment on above: Order Comment: Speci men Type: BLOOD SPECIMENOrdering Facility: [facility] Address: [address] [place], [place] [phone] Performed By: #### 2 4362-6, ####[facility] LABCLIA [id number] [place] [id number] [place] Creatinine [Mass/Vol] 1.22 mg/dL Normal 0.73-1.22 [facility] Comment on above: Order Comment: Speci men Type: BLOOD SPECIMENOrdering Facility: [facility] Address: [address] [place] [address] Performed By: #### 2 4362-6, ####[facility] LABIA [id number] [place] [address] [place] ESTIMATED GLOMERULAR FILTRATION RATE 60 mL/min/1.73m??? Normal >=60 [facility] Comment on above: Order Comment: Speci men Type: BLOOD SPECIMENOrdering Facility: [facility] Address: [address] [place], [place] [address] Result Comment: Sandra mated Glomerular Filtration Rate [...] actual GFR. Performed By: #### 2 4362-6, ####[facility] LABIA [id number] [place] [address] [place] Glucose [Mass/Vol] 177 mg/dL High 74-99 [facility] Comment on above: Order Comment: Speci men Type: BLOOD SPECIMENOrdering Facility: [facility] Address: [address] [place], [place] [address] Result Comment: The [place] [employer] (ADA) provides guidance for cutoff [...] Standards of Medical Care in Diabetes 2016, [place] [employer]. Diabetes Care. 2016.39(Suppl 1). Performed By: #### 2 4362-6, ####[facility] LABIA [id number] [place] [address] [place] Phosphate [Mass/Vol] 2.0 mg/dL Low 2.7-4.8 [facility] Comment on above: Order Comment: Speci men Type: BLOOD SPECIMENOrdering Facility: [facility] Address: [address] [place] [address] Performed By: #### 2 4362-6, ####[facility] LABIA [id number] [place] [address] [place] Potassium [Moles/Vol] 3.8 mmol/L Normal 3.7-5.1 [facility] Comment on above: Order Comment: Speci men Type: BLOOD SPECIMENOrdering Facility: [facility] Address: [address] [place], [place] [address] Performed By: #### 2 4362-6, ####[facility] LABIA [id number] [place] [address] [place] Sodium [Moles/Vol] 139 mmol/L Normal 136-144 [facility] Comment on above: Order Comment: Speci men Type: BLOOD SPECIMENOrdering Facility: [facility] Address: [address] [place], [place] [address] Performed By: #### 2 4362-6, ####[facility] LABCLIA [id number] [place] [address] [place] Urea nitrogen [Mass/Vol] 16 mg/dL Normal 9-24 [facility] Comment on above: Order Comment: Speci men Type: BLOOD SPECIMENOrdering Facility: [facility] Address: [address] [place], [place] [address] Performed By: #### 2 4362-6, ####[facility] LABCLIA [id number] [place] [address] [place] THERAPY NTon 11-20-2021 THERAPY NT Normal [facility] CASE MANAGEMon 11-19-2021 CASE MANAGEM Normal [facility] CBC panel Auto (Bld)on 11-19 Erythrocyte distribution width (RBC) [Ratio] 13.3 % Normal 11.5-15.0 [facility] Comment on above: Order Comment: Speci men Type: BLOOD SPECIMENOrdering Facility: [facility] Address: [address] [place], [place] [address] Performed By: #### 5 8410-2 ####[facility] LABIA [id number] [place] [address] [place] Hematocrit (Bld) [Volume fraction] 28.3 % Low 39.0-51.0 [facility] Comment on above: Order Comment: Speci men Type: BLOOD SPECIMENOrdering Facility: [facility] Address: [address] [place], [place] [address] Performed By: #### 5 8410-2 ####[facility] LABCLIA [id number] [place] [address] [place] Hemoglobin (Bld) [Mass/Vol] 9.1 g/dL Low 13.0-17.0 [facility] Comment on above: Order Comment: Speci men Type: BLOOD SPECIMENOrdering Facility: [facility] Address: [address] [place] [address] Performed By: #### 5 8410-2 ####[facility] LABIA [id number] [address] [place] [facility] MCH (RBC) [Entitic mass] 30.2 pg Normal 26.0-34.0 [facility] Comment on above: Order Comment: Speci men Type: BLOOD SPECIMENOrdering Facility: [facility] Address: [address] [place], [place] [address] Performed By: #### 5 8410-2 ####[facility] LABIA [id number] [address] MCHC (RBC) [Mass/Vol] 32.2 g/dL Normal 30.5-36.0 [facility] Comment on above: Order Comment: Speci men Type: BLOOD SPECIMENOrdering Facility: [facility] Address: [address] [place] [address] Performed By: #### 5 8410-2 ####[facility] LABIA [id number] [address] [place] MCV (RBC) [Entitic vol] 94.0 fL Normal 80.0-100.0 [facility] Comment on above: Order Comment: Speci men Type: BLOOD SPECIMENOrdering Facility: [facility] Address: [address] [place] [address] Performed By: #### 5 8410-2 ####[facility] LABIA [id number] [address] [place] Nucleated RBC (Bld) [#/Vol] 10*3/uL Normal <0.01 [facility] Comment on above: Order Comment: Speci men Type: BLOOD SPECIMENOrdering Facility: [facility] Address: [address] [place] [address] Performed By: #### 5 8410-2 ####[facility] LABCLIA [id number] [place] [address] [place] Platelet mean volume (Bld) [Entitic vol] 10.2 fL Normal 9.0-12.7 [facility] Comment on above: Order Comment: Speci men Type: BLOOD SPECIMENOrdering Facility: [facility] Address: [address] [place], [place] [address] Performed By: #### 5 8410-2 ####[facility] LABIA [id number] [place] [address] [place] Platelets (Bld) [#/Vol] 262 10*3/uL Normal 150-400 [facility] Comment on above: Order Comment: Speci men Type: BLOOD SPECIMENOrdering Facility: [facility] Address: [address] [place], [place] [address] Performed By: #### 5 8410-2 ####[facility] LABIA [id number] [place] [address] [place] RBC (Bld) [#/Vol] 3.01 10*6/uL Low 4.20-6.00 [facility] Comment on above: Order Comment: Speci men Type: BLOOD SPECIMENOrdering Facility: [facility] Address: [address] [place] [address] Performed By: #### 5 8410-2 ####[facility] LABIA [id number] [place] [address] [place] WBC (Bld) [#/Vol] 9.65 10*3/uL Normal 3.70-11.00 [facility] Comment on above: Order Comment: Speci men Type: BLOOD SPECIMENOrdering Facility: [facility] Address: [address] [place], [place] [address] Performed By: #### 5 8410-2 ####[facility] LABIA [id number] [place] [address] [place] Magnesium SerPl-mCncon 06-29 -2022 Magnesium [Mass/Vol] 2.2 mg/dL Normal 1.7-2.3 [facility] Comment on above: Order Comment: Speci men Type: BLOOD SPECIMENOrdering Facility: [facility] Address: [address] [place] [address] Performed By: #### 1 9123-9, 28442-8 ####[facility] LABCLIA [id number] [place] [address] [place] NUTRITIONon 11-19-2021 NUTRITION Normal [facility] PT EDon 11-19-2021 PT ED Normal [facility] Renal function 2000 panelon 11-19-2021 Albumin [Mass/Vol] 2.4 g/dL Low 3.9-4.9 [facility] Comment on above: Order Comment: Speci men Type: BLOOD SPECIMENOrdering Facility: [facility] Address: [address] [place] [address] Performed By: #### 1 9123-9, 81350-3 ####[facility] LABCLIA [id number] [place] [address] [place] Anion gap [Moles/Vol] 7 mmol/L Low 9-18 [facility] Comment on above: Order Comment: Speci men Type: BLOOD SPECIMENOrdering Facility: [facility] Address: [address] [place] [address] Performed By: #### 1 9123-9, 74757-9 ####[facility] LABCLIA [id number] [facility] [place] [address] [place] Calcium [Mass/Vol] 8.5 mg/dL Normal 8.5-10.2 [facility] Comment on above: Order Comment: Speci men Type: BLOOD SPECIMENOrdering Facility: [facility] Address: [address] [place], [place] [address] Performed By: #### 1 9123-9, 56282-4 ####[facility] LABCLIA [id number] [place] [address] [place] Chloride [Moles/Vol] 105 mmol/L Normal 97-105 [facility] Comment on above: Order Comment: Speci men Type: BLOOD SPECIMENOrdering Facility: [facility] Address: [address] [place] [address] Performed By: #### 1 9123-9, 77888-1 ####[facility] LABCLIA [id number] [place] [address] [place] CO2 [Moles/Vol] 27 mmol/L Normal 22-30 [facility] Comment on above: Order Comment: Speci men Type: BLOOD SPECIMENOrdering Facility: [facility] Address: [address] [place] [address] Performed By: #### 1 9123-9, 09009-9 ####[facility] LABIA [id number] [address] STATES OF [facility] Creatinine [Mass/Vol] 1.22 mg/dL Normal 0.73-1.22 [facility] Comment on above: Order Comment: Speci men Type: BLOOD SPECIMENOrdering Facility: [facility] Address: [address] [place] [address] Performed By: #### 1 9123-9, 05794-9 ####[facility] LABIA [id number] [address] OF [facility] ESTIMATED GLOMERULAR FILTRATION RATE 60 mL/min/1.73m??? Normal >=60 [facility] Comment on above: Order Comment: Speci men Type: BLOOD SPECIMENOrdering Facility: [facility] Address: [address] [place] [address] Result Comment: Sandra mated Glomerular Filtration Rate [...] actual GFR. Performed By: #### 1 9123-9, 79499-6 ####[facility] LABCLIA [id number] [address] [address] [place] Glucose [Mass/Vol] 146 mg/dL High 74-99 [facility] Comment on above: Order Comment: Misbah padilla Type: BLOOD SPECIMENOrdering Facility: [facility] Address: [address] [place] [address] Result Comment: The [place] [employer] (ADA) provides guidance for cutoff [...] Standards of Medical Care in Diabetes 2016, [place] [employer]. Diabetes Care. 2016.39(Suppl 1). Performed By: #### 1 9123-9, 48825-5 ####[facility] LABCLIA [id number] [address] [address] [place] Phosphate [Mass/Vol] 3.0 mg/dL Normal 2.7-4.8 [facility] Comment on above: Order Comment: Misbah padilla Type: BLOOD SPECIMENOrdering Facility: [facility] Address: [address] [place] [address] Performed By: #### 1 9123-9, 33329-1 ####[facility] LABIA [id number] [address] [address] [place] Potassium [Moles/Vol] 4.1 mmol/L Normal 3.7-5.1 [facility] Comment on above: Order Comment: Speci men Type: BLOOD SPECIMENOrdering Facility: [facility] Address: [address] [place], [place] [address] Performed By: #### 1 9123-9, 85752-8 ####[facility] LABCLIA [id number] [place] [address] [place] Sodium [Moles/Vol] 139 mmol/L Normal 136-144 [facility] Comment on above: Order Comment: Speci men Type: BLOOD SPECIMENOrdering Facility: [facility] Address: [address] [place], [place] [address] Performed By: #### 1 9123-9, 05547-5 ####[facility] LABCLIA [id number] [address] [place] Urea nitrogen [Mass/Vol] 10 mg/dL Normal 9-24 [facility] Comment on above: Order Comment: Speci men Type: BLOOD SPECIMENOrdering Facility: [facility] Address: [address] [place] [address] Performed By: #### 1 9123-9, 26759-3 ####[facility] LABCLIA [id number] [place] [address] [place] THERAPY NTon 11-19-2021 THERAPY NT Normal [facility] CASE MANAGEMon 11-18-2021 CASE MANAGEM Normal [facility] CBC panel Auto (Bld)on 11-18 Erythrocyte distribution width (RBC) [Ratio] 13.4 % Normal 11.5-15.0 [facility] Comment on above: Order Comment: Speci men Type: BLOOD SPECIMENOrdering Facility: [facility] Address: [address] [place], [place] [address] Performed By: #### 5 8410-2 ####[facility] LABCLIA [id number] [address] [place] Hematocrit (Bld) [Volume fraction] 28.5 % Low 39.0-51.0 [facility] Comment on above: Order Comment: Speci men Type: BLOOD SPECIMENOrdering Facility: [facility] Address: [address] [place] [address] Performed By: #### 5 8410-2 ####[facility] LABCLIA [id number] [place] [address] [place] Hemoglobin (Bld) [Mass/Vol] 9.0 g/dL Low 13.0-17.0 [facility] Comment on above: Order Comment: Speci men Type: BLOOD SPECIMENOrdering Facility: [facility] Address: [address] [place] [address] Performed By: #### 5 8410-2 ####[facility] LABCLIA [id number] [place] [address] [place] MCH (RBC) [Entitic mass] 30.4 pg Normal 26.0-34.0 [facility] Comment on above: Order Comment: Speci men Type: BLOOD SPECIMENOrdering Facility: [facility] Address: [address] [place] [address] Performed By: #### 5 8410-2 ####[facility] LABIA [id number] [place] [address] [place] MCHC (RBC) [Mass/Vol] 31.6 g/dL Normal 30.5-36.0 [facility] Comment on above: Order Comment: Speci men Type: BLOOD SPECIMENOrdering Facility: [facility] Address: [address] [place], [place] [address] Performed By: #### 5 8410-2 ####[facility] LABCLIA [id number] [place] [address] [place] MCV (RBC) [Entitic vol] 96.3 fL Normal 80.0-100.0 [facility] Comment on above: Order Comment: Speci men Type: BLOOD SPECIMENOrdering Facility: [facility] Address: [address] [place], [place] [address] Performed By: #### 5 8410-2 ####[facility] LABIA [id number] [place] [address] [place] [facility] Nucleated RBC (Bld) [#/Vol] 10*3/uL Normal <0.01 [facility] Comment on above: Order Comment: Speci men Type: BLOOD SPECIMENOrdering Facility: [facility] Address: [address] [place], [place] [address] Performed By: #### 5 8410-2 ####[facility] [id number] [place] [address] [place] Platelet mean volume (Bld) [Entitic vol] 10.3 fL Normal 9.0-12.7 [facility] Comment on above: Order Comment: Speci men Type: BLOOD SPECIMENOrdering Facility: [facility] Address: [address] [place], [place] [address] Performed By: #### 5 8410-2 ####[facility] LABIA [id number] [address] [place] Platelets (Bld) [#/Vol] 228 10*3/uL Normal 150-400 [facility] Comment on above: Order Comment: Speci men Type: BLOOD SPECIMENOrdering Facility: [facility] Address: [address] [place] [address] Performed By: #### 5 8410-2 ####[facility] LABIA [id number] [place] [address] [place] RBC (Bld) [#/Vol] 2.96 10*6/uL Low 4.20-6.00 [facility] Comment on above: Order Comment: Speci men Type: BLOOD SPECIMENOrdering Facility: [facility] Address: [address] [place], [place] [address] Performed By: #### 5 8410-2 ####[facility] LABCLIA [id number] [place] [address] [place] WBC (Bld) [#/Vol] 8.72 10*3/uL Normal 3.70-11.00 [facility] Comment on above: Order Comment: Speci men Type: BLOOD SPECIMENOrdering Facility: [facility] Address: [address] [place] [address] Performed By: #### 5 8410-2 ####[facility] LABCLIA [id number] [place] [address] [place] Magnesium [facility]Pl[facility] 11-18 Magnesium [Mass/Vol] 1.7 mg/dL Normal 1.7-2.3 [facility] Comment on above: Order Comment: Speci men Type: BLOOD SPECIMENOrdering Facility: [facility] Address: [address] [place], [place] [address] Performed By: #### 1 9123-9, 2777-1, 60262-1 ####[facility] LABIA [id number] [place] [address] [place] NURSING PROGon 11-18-2021 NURSING PROG Normal [facility] Phosphate SerPl-mCncon 11-18 Phosphate [Mass/Vol] 3.7 mg/dL Normal 2.7-4.8 [facility] Comment on above: Order Comment: Speci men Type: BLOOD SPECIMENOrdering Facility: [facility] Address: [address] [place] [address] Performed By: #### 1 9123-9, 2777-1, 34605-5 ####[facility] LABIA [id number] [place] [address] [place] Renal function 2000 panelon 11-18-2021 Albumin [Mass/Vol] 2.2 g/dL Low 3.9-4.9 [facility] Comment on above: Order Comment: Speci men Type: BLOOD SPECIMENOrdering Facility: [facility] Address: [address] [place], [place] [address] Performed By: #### 1 9123-9, 2777-, 69426-3 ####[facility] LABCLIA [id number] [place] [address] [place] Anion gap [Moles/Vol] 11 mmol/L Normal 9-18 [facility] Comment on above: Order Comment: Speci men Type: BLOOD SPECIMENOrdering Facility: [facility] Address: [address] [place], [place] [address] Performed By: #### 1 9123-9, 2777-1, 87467-2 ####[facility] LABCLIA [id number] [place] [address] [place] Calcium [Mass/Vol] 8.9 mg/dL Normal 8.5-10.2 [facility] Comment on above: Order Comment: Speci men Type: BLOOD SPECIMENOrdering Facility: [facility] Address: [address] [place] [address] Performed By: #### 1 9123-9, 2777-, 84645-1 ####[facility] LABCLIA [id number] [place] [address] [place] Chloride [Moles/Vol] 107 mmol/L High 97-105 [facility] Comment on above: Order Comment: Speci men Type: BLOOD SPECIMENOrdering Facility: [facility] Address: [address] [place], [place] [address] Performed By: #### 1 9123-9, 2777-1, 58674-5 ####[facility] LABCLIA [id number] [place] [id number] [place] CO2 [Moles/Vol] 23 mmol/L Normal 22-30 [facility] Comment on above: Order Comment: Speci men Type: BLOOD SPECIMENOrdering Facility: [facility] Address: [address] [place] [phone] Performed By: #### 1 9123-9, 2777-, 96695-9 ####[facility] LABIA [id number] [place] [address] [place] Creatinine [Mass/Vol] 1.14 mg/dL Normal 0.73-1.22 [facility] Comment on above: Order Comment: Speci men Type: BLOOD SPECIMENOrdering Facility: [facility] Address: [address] [place], [place] [address] Performed By: #### 1 9123-9, 2777-, 00377-8 ####[facility] [id number] [place] [address] [place] ESTIMATED GLOMERULAR FILTRATION RATE 65 mL/min/1.73m??? Normal >=60 [facility] Comment on above: Order Comment: Speci men Type: BLOOD SPECIMENOrdering Facility: [facility] Address: [address] [place] [address] Result Comment: Sandra mated Glomerular Filtration Rate [...] GFR. Performed By: #### 1 9123-9, 2777-, 47959-7 ####[facility] LABIA [id number] [place] [id number] [place] Glucose [Mass/Vol] 89 mg/dL Normal 74-99 [facility] Comment on above: Order Comment: Speci men Type: BLOOD SPECIMENOrdering Facility: [facility] Address: [address] [place], [place] [address] Result Comment: The [place] [employer] (ADA) provides guidance for cutoff [...] Standards of Medical Care in Diabetes 2016, [place] [employer]. Diabetes Care. 2016.39(Suppl 1). Performed By: #### 1 9123-9, 2777-1, 44244-1 ####[facility] LABIA [id number] [place] [address] [place] Phosphate [Mass/Vol] 3.8 mg/dL Normal 2.7-4.8 [facility] Comment on above: Order Comment: Speci men Type: BLOOD SPECIMENOrdering Facility: [facility] Address: [address] [place] [address] Performed By: #### 1 9123-9, 2777-1, 49572-8 ####[facility] LABIA [id number] [place] [address] [place] Potassium [Moles/Vol] 4.2 mmol/L Normal 3.7-5.1 [facility] Comment on above: Order Comment: Speci men Type: BLOOD SPECIMENOrdering Facility: [facility] Address: [address] [place], [place] [address] Performed By: #### 1 9123-9, 2777-1, 02243-1 ####[facility] LABIA [id number] [place] [address] [place] Sodium [Moles/Vol] 141 mmol/L Normal 136-144 [facility] Comment on above: Order Comment: Speci men Type: BLOOD SPECIMENOrdering Facility: [facility] Address: [address] Performed By: #### 1 9123-9, 2777-1, 55051-1 ####[facility] LABCLIA [id number] [place] [address] [place] Urea nitrogen [Mass/Vol] 5 mg/dL Low 9-24 [facility] Comment on above: Order Comment: Speci men Type: BLOOD SPECIMENOrdering Facility: [facility] Address: [address] [place] [address] Performed By: #### 1 9123-9, 2777-1, 69687-2 ####[facility] LABIA [id number] [place] [address] [place] THERAPY NTon 11-18-2021 THERAPY NT Normal [facility] XR ABDOMEN 1V SUPINEon 11-18 XR ABDOMEN 1V SUPINE [facility] XR ABDOMEN 1V SUPINE Normal [facility] ANES POSTPROC EVALon 022 ANES POSTPROC EVAL Normal [facility] ANES PRE-OPon 11-17-2021 ANES PRE-OP Normal [facility] BRIEF OP NOTon 11-17-2021 BRIEF OP NOT Normal [facility] CASE MANAGEMon 11-17-2021 CASE MANAGEM Normal [facility] CBC panel Auto (Bld)on 11-17 Erythrocyte distribution width (RBC) [Ratio] 13.4 % Normal 11.5-15.0 [facility] Comment on above: Order Comment: Speci men Type: BLOOD SPECIMENOrdering Facility: [facility] Address: [address] [place], [place] [address] Performed By: #### 5 8410-2 ####[facility] LABIA [id number] [place] [address] [place] Hematocrit (Bld) [Volume fraction] 24.8 % Low 39.0-51.0 [facility] Comment on above: Order Comment: Speci men Type: BLOOD SPECIMENOrdering Facility: [facility] Address: [address] [place] [phone] Performed By: #### 5 8410-2 ####[facility] LABIA [id number] [place] [address] [place] Hemoglobin (Bld) [Mass/Vol] 8.0 g/dL Low 13.0-17.0 [facility] Comment on above: Order Comment: Speci men Type: BLOOD SPECIMENOrdering Facility: [facility] Address: [address] [place], [place] [address] Performed By: #### 5 8410-2 ####[facility] LABIA [id number] [address] [place] MCH (RBC) [Entitic mass] 30.2 pg Normal 26.0-34.0 [facility] Comment on above: Order Comment: Speci men Type: BLOOD SPECIMENOrdering Facility: [facility] Address: [address] [place], [place] [address] Performed By: #### 5 8410-2 ####[facility] LABIA [id number] [address] [place] MCHC (RBC) [Mass/Vol] 32.3 g/dL Normal 30.5-36.0 [facility] Comment on above: Order Comment: Speci men Type: BLOOD SPECIMENOrdering Facility: [facility] Address: [address] [place] [address] Performed By: #### 5 8410-2 ####[facility] LABIA [id number] [place] [address] [place] MCV (RBC) [Entitic vol] 93.6 fL Normal 80.0-100.0 [facility] Comment on above: Order Comment: Speci men Type: BLOOD SPECIMENOrdering Facility: [facility] Address: [address] [place], [place] [address] Performed By: #### 5 8410-2 ####[facility] LABIA [id number] [place] [address] [place] Nucleated RBC (Bld) [#/Vol] 10*3/uL Normal <0.01 [facility] Comment on above: Order Comment: Speci men Type: BLOOD SPECIMENOrdering Facility: [facility] Address: [address] [place], [place] [address] Performed By: #### 5 8410-2 ####[facility] [id number] [place] [address] [place] Platelet mean volume (Bld) [Entitic vol] 10.1 fL Normal 9.0-12.7 [facility] Comment on above: Order Comment: Speci men Type: BLOOD SPECIMENOrdering Facility: [facility] Address: [address] [place] [address] Performed By: #### 5 8410-2 ####[facility] [id number] [place] [address] [place] Platelets (Bld) [#/Vol] 235 10*3/uL Normal 150-400 [facility] Comment on above: Order Comment: Speci men Type: BLOOD SPECIMENOrdering Facility: [facility] Address: [address] [place], [place] [address] Performed By: #### 5 8410-2 ####[facility] [id number] [place] [address] [place] RBC (Bld) [#/Vol] 2.65 10*6/uL Low 4.20-6.00 [facility] Comment on above: Order Comment: Speci men Type: BLOOD SPECIMENOrdering Facility: [facility] Address: [address] [place] [address] Performed By: #### 5 8410-2 ####[facility] LABIA [id number] [place] [address] [place] WBC (Bld) [#/Vol] 9.08 10*3/uL Normal 3.70-11.00 [facility] Comment on above: Order Comment: Speci men Type: BLOOD SPECIMENOrdering Facility: [facility] Address: [address] [place] [address] Performed By: #### 5 8410-2 ####[facility] LABCLIA [id number] [address] [facility] OPERATIVE NOon 11-17-2021 OPERATIVE NO Normal [facility] PT panel Coag (PPP)on 2021 INR Coag (PPP) [Relative time] 1.2 {INR} Normal 0.9-1.3 [facility] Comment on above: Order Comment: Misbah valerie Type: BLOOD SPECIMENOrdering Facility: [facility] Address: [address] [place] [address] Result Comment: Pippa min K Antagonist (VKA) Therapeutic Range: INR 2 to 3 (Target INR of 2.5)Note: For patients treated with VKA drugs, such as warfarin, the [place] [employer] 2012 Guideline recommends [...] al. Chest 2012, 141:7S-47SNishimura RA, et al. [facility] 2017, 70: 252-289 Performed By: #### 3 4528-0 ####[facility] LABCLIA [id number] [place] [address] [place] PT Coag (PPP) [Time] 12.1 s Normal 9.7-13.0 [facility] Comment on above: Order Comment: Speci men Type: BLOOD SPECIMENOrdering Facility: [facility] Address: [address] [place], [place] [address] Performed By: #### 3 4528-0 ####[facility] LABCLIA [id number] [place] [address] [place] PTT, ANTICOAGULANT THERAPYon 11-17-2021 aPTT Coag (PPP) [Time] 74.7 s High 23.0-32.4 [facility] Comment on above: Order Comment: Speci men Type: BLOOD SPECIMENOrdering Facility: [facility] Address: [address] [place] [address] Performed By: #### P TTAC ####[facility] LABCLIA [id number] [place] [address] [place] Renal function 2000 panelon 11-17-2021 Albumin [Mass/Vol] 2.3 g/dL Low 3.9-4.9 [facility] Comment on above: Order Comment: Speci men Type: BLOOD SPECIMENOrdering Facility: [facility] Address: [address] [place] [address] Performed By: #### 2 4362-6 ####[facility] LABIA [id number] [place] [address] [place] Anion gap [Moles/Vol] 7 mmol/L Low 9-18 [facility] Comment on above: Order Comment: Speci men Type: BLOOD SPECIMENOrdering Facility: [facility] Address: [address] [place], [place] [address] Performed By: #### 2 4362-6 ####[facility] LABIA [id number] [place] [address] [place] Calcium [Mass/Vol] 8.5 mg/dL Normal 8.5-10.2 [facility] Comment on above: Order Comment: Speci men Type: BLOOD SPECIMENOrdering Facility: [facility] Address: [address] [place], [place] [address] Performed By: #### 2 4362-6 ####[facility] LABCLIA [id number] [place] [address] [place] Chloride [Moles/Vol] 108 mmol/L High 97-105 [facility] Comment on above: Order Comment: Speci men Type: BLOOD SPECIMENOrdering Facility: [facility] Address: [address] [place], [place] [address] Performed By: #### 2 4362-6 ####[facility] LABCLIA [id number] [place] [address] [place] CO2 [Moles/Vol] 25 mmol/L Normal 22-30 [facility] Comment on above: Order Comment: Speci men Type: BLOOD SPECIMENOrdering Facility: [facility] Address: [address] [place], [place] [address] Performed By: #### 2 4362-6 ####[facility] LABIA [id number] [place] [address] [place] Creatinine [Mass/Vol] 1.04 mg/dL Normal 0.73-1.22 [facility] Comment on above: Order Comment: Speci men Type: BLOOD SPECIMENOrdering Facility: [facility] Address: [address] [place], [place] [address] Performed By: #### 2 4362-6 ####[facility] LABIA [id number] [place] [address] [place] ESTIMATED GLOMERULAR FILTRATION RATE 73 mL/min/1.73m??? Normal >=60 [facility] Comment on above: Order Comment: Speci men Type: BLOOD SPECIMENOrdering Facility: [facility] Address: [address] [place], [place] [address] Result Comment: Sandra mated Glomerular Filtration Rate [...] actual GFR. Performed By: #### 2 4362-6 ####[facility] LABCLIA [id number] [address] [address] [place] Glucose [Mass/Vol] 117 mg/dL High 74-99 [facility] Comment on above: Order Comment: Speci men Type: BLOOD SPECIMENOrdering Facility: [facility] Address: [address] [place] [address] Result Comment: The [place] [employer] (ADA) provides guidance for cutoff [...] Standards of Medical Care in Diabetes 2016, [place] [employer]. Diabetes Care. 2016.39(Suppl 1). Performed By: #### 2 4362-6 ####[facility] LABCLIA [id number] [address] [address] [place] Phosphate [Mass/Vol] 3.1 mg/dL Normal 2.7-4.8 [facility] Comment on above: Order Comment: Speci men Type: BLOOD SPECIMENOrdering Facility: [facility] Address: [address] [place] [address] Performed By: #### 2 4362-6 ####[facility] LABCLIA [id number] [address] [address] [place] Potassium [Moles/Vol] 4.0 mmol/L Normal 3.7-5.1 [facility] Comment on above: Order Comment: Speci men Type: BLOOD SPECIMENOrdering Facility: [facility] Address: [address] [place], [place] [address] Performed By: #### 2 4362-6 ####[facility] LABCLIA [id number] [place] [address] [place] Sodium [Moles/Vol] 140 mmol/L Normal 136-144 [facility] Comment on above: Order Comment: Speci men Type: BLOOD SPECIMENOrdering Facility: [facility] Address: [address] [place], [place] [address] Performed By: #### 2 4362-6 ####[facility] LABCLIA [id number] [address] [place] Urea nitrogen [Mass/Vol] 4 mg/dL Low 9-24 [facility] Comment on above: Order Comment: Speci men Type: BLOOD SPECIMENOrdering Facility: [facility] Address: [address] [place], [place] [address] Performed By: #### 2 4362-6 ####[facility] LABIA [id number] [place] [address] [place] THERAPY NTon 11-17-2021 THERAPY NT Normal [facility] CBC panel Auto (Bld)on 11-16 Erythrocyte distribution width (RBC) [Ratio] 13.4 % Normal 11.5-15.0 [facility] Comment on above: Order Comment: Speci men Type: BLOOD SPECIMENOrdering Facility: [facility] Address: [address] [place], [place] [address] Performed By: #### 5 8410-2 ####[facility] LABCLIA [id number] [address] [place] Hematocrit (Bld) [Volume fraction] 26.7 % Low 39.0-51.0 [facility] Comment on above: Order Comment: Speci men Type: BLOOD SPECIMENOrdering Facility: [facility] Address: [address] [place], [place] [address] Performed By: #### 5 8410-2 ####[facility] [id number] [address] [place] Hemoglobin (Bld) [Mass/Vol] 8.8 g/dL Low 13.0-17.0 [facility] Comment on above: Order Comment: Speci men Type: BLOOD SPECIMENOrdering Facility: [facility] Address: [address] [place] [address] Performed By: #### 5 8410-2 ####[facility] [id number] [place] [address] [place] MCH (RBC) [Entitic mass] 30.4 pg Normal 26.0-34.0 [facility] Comment on above: Order Comment: Speci men Type: BLOOD SPECIMENOrdering Facility: [facility] Address: [address] [place], [place] [address] Performed By: #### 5 8410-2 ####[facility] [id number] [address] [place] MCHC (RBC) [Mass/Vol] 33.0 g/dL Normal 30.5-36.0 [facility] Comment on above: Order Comment: Speci men Type: BLOOD SPECIMENOrdering Facility: [facility] Address: [address] [place], [place] [address] Performed By: #### 5 8410-2 ####[facility] [id number] [place] [address] [place] MCV (RBC) [Entitic vol] 92.4 fL Normal 80.0-100.0 [facility] Comment on above: Order Comment: Speci men Type: BLOOD SPECIMENOrdering Facility: [facility] Address: [address] [place], [place] [address] Performed By: #### 5 8410-2 ####[facility] LABIA [id number] [place] [address] [place] Nucleated RBC (Bld) [#/Vol] 10*3/uL Normal <0.01 [facility] Comment on above: Order Comment: Speci men Type: BLOOD SPECIMENOrdering Facility: [facility] Address: [address] [place], [place] [address] Performed By: #### 5 8410-2 ####[facility] LABIA [id number] [place] [address] [place] Platelet mean volume (Bld) [Entitic vol] 10.1 fL Normal 9.0-12.7 [facility] Comment on above: Order Comment: Speci men Type: BLOOD SPECIMENOrdering Facility: [facility] Address: [address] [place] [address] Performed By: #### 5 8410-2 ####[facility] [id number] [place] [address] [place] Platelets (Bld) [#/Vol] 261 10*3/uL Normal 150-400 [facility] Comment on above: Order Comment: Speci men Type: BLOOD SPECIMENOrdering Facility: [facility] Address: [address] [place], [place] [address] Performed By: #### 5 8410-2 ####[facility] LABIA [id number] [place] [address] [place] RBC (Bld) [#/Vol] 2.89 10*6/uL Low 4.20-6.00 [facility] Comment on above: Order Comment: Speci men Type: BLOOD SPECIMENOrdering Facility: [facility] Address: [address] [place], [place] [address] Performed By: #### 5 8410-2 ####[facility] [id number] [place] [address] [place] WBC (Bld) [#/Vol] 9.81 10*3/uL Normal 3.70-11.00 [facility] Comment on above: Order Comment: Speci men Type: BLOOD SPECIMENOrdering Facility: [facility] Address: [address] [place] [address] Performed By: #### 5 8410-2 ####[facility] LABCLIA [id number] [place] [address] [place] PTT, ANTICOAGULANT THERAPYon 11-16-2021 aPTT Coag (PPP) [Time] 33.9 s High 23.0-32.4 [facility] Comment on above: Order Comment: Speci men Type: BLOOD SPECIMENOrdering Facility: [facility] Address: [address] [place] [address] Performed By: #### P TTAC ####[facility] LABCLIA [id number] [address] [place] aPTT Coag (PPP) [Time] 63.8 s High 23.0-32.4 [facility] Comment on above: Order Comment: Speci men Type: BLOOD SPECIMENOrdering Facility: [facility] Address: [address] [place] [address] Performed By: #### P TTAC ####[facility] LABIA [id number] [place] [address] [place] Renal function 2000 panelon 11-16-2021 Albumin [Mass/Vol] 2.3 g/dL Low 3.9-4.9 [facility] Comment on above: Order Comment: Speci men Type: BLOOD SPECIMENOrdering Facility: [facility] Address: [address] [place], [place] [address] Performed By: #### 2 4362-6 ####[facility] LABIA [id number] [place] [address] [place] Anion gap [Moles/Vol] 10 mmol/L Normal 9-18 [facility] Comment on above: Order Comment: Speci men Type: BLOOD SPECIMENOrdering Facility: [facility] Address: [address] [place] [address] Performed By: #### 2 4362-6 ####[facility] LABCLIA [id number] [facility] [place] [address] [place] Calcium [Mass/Vol] 8.7 mg/dL Normal 8.5-10.2 [facility] Comment on above: Order Comment: Speci men Type: BLOOD SPECIMENOrdering Facility: [facility] Address: [address] [place], [place] [phone] Performed By: #### 2 4362-6 ####[facility] LABCLIA [id number] [place] [address] [place] Chloride [Moles/Vol] 109 mmol/L High 97-105 [facility] Comment on above: Order Comment: Speci men Type: BLOOD SPECIMENOrdering Facility: [facility] Address: [address] [place] [address] Performed By: #### 2 4362-6 ####[facility] LABCLIA [id number] [facility] [place] [address] [place] CO2 [Moles/Vol] 23 mmol/L Normal 22-30 [facility] Comment on above: Order Comment: Speci men Type: BLOOD SPECIMENOrdering Facility: [facility] Address: [address] [place] [address] Performed By: #### 2 4362-6 ####[facility] LABCLIA [id number] [place] [address] [place] Creatinine [Mass/Vol] 1.00 mg/dL Normal 0.73-1.22 [facility] Comment on above: Order Comment: Speci men Type: BLOOD SPECIMENOrdering Facility: [facility] Address: [address] [place] [address] Performed By: #### 2 4362-6 ####[facility] LABCLIA [id number] [address] OF [facility] ESTIMATED GLOMERULAR FILTRATION RATE 77 mL/min/1.73m??? Normal >=60 [facility] Comment on above: Order Comment: Misbah padilla Type: BLOOD SPECIMENOrdering Facility: [facility] Address: [address] [address] Result Comment: Sandra mated Glomerular Filtration Rate [...] actual GFR. Performed By: #### 2 4362-6 ####[facility] LABIA [id number] [place] [address] [place] Glucose [Mass/Vol] 107 mg/dL High 74-99 [facility] Comment on above: Order Comment: Misbah padilla Type: BLOOD SPECIMENOrdering Facility: [facility] Address: [address] [place] [address] Result Comment: The [place] [employer] Association (ADA) provides guidance for cutoff [...] Standards of Medical Care in Diabetes 2016, [place] [employer]. Diabetes Care. 2016.39(Suppl 1). Performed By: #### 2 4362-6 ####[facility] LABCLIA [id number] [place] [address] [place] Phosphate [Mass/Vol] 3.1 mg/dL Normal 2.7-4.8 [facility] Comment on above: Order Comment: Speci men Type: BLOOD SPECIMENOrdering Facility: [facility] Address: [address] [place] [address] Performed By: #### 2 4362-6 ####[facility] LABCLIA [id number] [place] [address] [place] Potassium [Moles/Vol] 4.0 mmol/L Normal 3.7-5.1 [facility] Comment on above: Order Comment: Speci men Type: BLOOD SPECIMENOrdering Facility: [facility] Address: [address] [place] [address] Performed By: #### 2 4362-6 ####[facility] LABCLIA [id number] [place] [address] [place] Sodium [Moles/Vol] 142 mmol/L Normal 136-144 [facility] Comment on above: Order Comment: Speci men Type: BLOOD SPECIMENOrdering Facility: [facility] Address: [address] [place] [address] Performed By: #### 2 4362-6 ####[facility] LABCLIA [id number] [place] [address] [place] Urea nitrogen [Mass/Vol] 3 mg/dL Low 9-24 [facility] Comment on above: Order Comment: Speci men Type: BLOOD SPECIMENOrdering Facility: [facility] Address: [address] [place], [place] [phone] Performed By: #### 2 4362-6 ####[facility] LABCLIA [id number] [place] [address] [place] CBC panel Auto (Bld)on 11-15 Erythrocyte distribution width (RBC) [Ratio] 13.3 % Normal 11.5-15.0 [facility] Comment on above: Order Comment: Speci men Type: BLOOD SPECIMENOrdering Facility: [facility] Address: [address] [place], [place] [phone] Performed By: #### 5 8410-2 ####[facility] LABCLIA [id number] [address] [place] Hematocrit (Bld) [Volume fraction] 29.2 % Low 39.0-51.0 [facility] Comment on above: Order Comment: Speci men Type: BLOOD SPECIMENOrdering Facility: [facility] Address: [address] [place], [place] [phone] Performed By: #### 5 8410-2 ####[facility] LABIA [id number] [address] [place] Hemoglobin (Bld) [Mass/Vol] 9.4 g/dL Low 13.0-17.0 [facility] Comment on above: Order Comment: Speci men Type: BLOOD SPECIMENOrdering Facility: [facility] Address: [address] [place], [place] [phone] Performed By: #### 5 8410-2 ####[facility] LABIA [id number] [address] [place] MCH (RBC) [Entitic mass] 30.3 pg Normal 26.0-34.0 [facility] Comment on above: Order Comment: Speci men Type: BLOOD SPECIMENOrdering Facility: [facility] Address: [address] [place], [place] [phone] Performed By: #### 5 8410-2 ####[facility] LABIA [id number] [address] [place] MCHC (RBC) [Mass/Vol] 32.2 g/dL Normal 30.5-36.0 [facility] Comment on above: Order Comment: Speci men Type: BLOOD SPECIMENOrdering Facility: [facility] Address: [address] [place] [phone] Performed By: #### 5 8410-2 ####[facility] LABCLIA [id number] [address] MCV (RBC) [Entitic vol] 94.2 fL Normal 80.0-100.0 [facility] Comment on above: Order Comment: Speci men Type: BLOOD SPECIMENOrdering Facility: [facility] Address: [address] [place], [place] [phone] Performed By: #### 5 8410-2 ####[facility] LABIA [id number] [place] [address] [place] Nucleated RBC (Bld) [#/Vol] 10*3/uL Normal <0.01 [facility] Comment on above: Order Comment: Speci men Type: BLOOD SPECIMENOrdering Facility: [facility] Address: [address] [place] [address] Performed By: #### 5 8410-2 ####[facility] LABIA [id number] [place] [address] [place] Platelet mean volume (Bld) [Entitic vol] 10.0 fL Normal 9.0-12.7 [facility] Comment on above: Order Comment: Speci men Type: BLOOD SPECIMENOrdering Facility: [facility] Address: [address] [place] [address] Performed By: #### 5 8410-2 ####[facility] LABCLIA [id number] [place] [address] [place] Platelets (Bld) [#/Vol] 336 10*3/uL Normal 150-400 [facility] Comment on above: Order Comment: Speci men Type: BLOOD SPECIMENOrdering Facility: [facility] Address: [address] [place], [place] [phone] Performed By: #### 5 8410-2 ####[facility] LABCLIA [id number] [place] [address] [place] RBC (Bld) [#/Vol] 3.10 10*6/uL Low 4.20-6.00 [facility] Comment on above: Order Comment: Speci men Type: BLOOD SPECIMENOrdering Facility: [facility] Address: [address] [place], [place] [phone] Performed By: #### 5 8410-2 ####[facility] LABIA [id number] [place] [address] [place] WBC (Bld) [#/Vol] 9.78 10*3/uL Normal 3.70-11.00 [facility] Comment on above: Order Comment: Speci men Type: BLOOD SPECIMENOrdering Facility: [facility] Address: [address] [place], [place] [phone] Performed By: #### 5 8410-2 ####[facility] LABIA [id number] [place] [address] [place] PT EDon 11-15-2021 PT ED Normal [facility] PTT, ANTICOAGULANT THERAPYon 11-15-2021 aPTT Coag (PPP) [Time] 45.7 s High 23.0-32.4 [facility] Comment on above: Order Comment: Speci men Type: BLOOD SPECIMENOrdering Facility: [facility] Address: [address] [place] [address] Performed By: #### P TTAC ####[facility] LABIA [id number] [place] [address] [place] aPTT Coag (PPP) [Time] 73.7 s High 23.0-32.4 [facility] Comment on above: Order Comment: Speci men Type: BLOOD SPECIMENOrdering Facility: [facility] Address: [address] [place], [place] [phone] Performed By: #### P TTAC ####[facility] LABCLIA [id number] [place] [address] [place] aPTT Coag (PPP) [Time] 43.4 s High 23.0-32.4 [facility] Comment on above: Order Comment: Speci men Type: BLOOD SPECIMENOrdering Facility: [facility] Address: [address] [place] [address] Performed By: #### P TTA ####[facility] LABIA [id number] [place] [address] [place] Renal function 2000 panelon 11-15-2021 Albumin [Mass/Vol] 2.5 g/dL Low 3.9-4.9 [facility] Comment on above: Order Comment: Speci men Type: BLOOD SPECIMENOrdering Facility: [facility] Address: [address] [place] [address] Performed By: #### 2 4362-6 ####[facility] [id number] [place] [address] [place] Anion gap [Moles/Vol] 11 mmol/L Normal 9-18 [facility] Comment on above: Order Comment: Speci men Type: BLOOD SPECIMENOrdering Facility: [facility] Address: [address] [place] [address] Performed By: #### 2 4362-6 ####[facility] LABIA [id number] [place] [address] [place] Calcium [Mass/Vol] 8.7 mg/dL Normal 8.5-10.2 [facility] Comment on above: Order Comment: Speci men Type: BLOOD SPECIMENOrdering Facility: [facility] Address: [address] [place] [phone] Performed By: #### 2 4362-6 ####[facility] LABIA [id number] [place] [address] [place] Chloride [Moles/Vol] 110 mmol/L High 97-105 [facility] Comment on above: Order Comment: Speci men Type: BLOOD SPECIMENOrdering Facility: [facility] Address: [address] [place] [address] Performed By: #### 2 4362-6 ####[facility] LABCLIA [id number] [place] [address] [place] CO2 [Moles/Vol] 22 mmol/L Normal 22-30 [facility] Comment on above: Order Comment: Speci men Type: BLOOD SPECIMENOrdering Facility: [facility] Address: [address] [place], [place] [phone] Performed By: #### 2 4362-6 ####[facility] LABCLIA [id number] [address] STATES OF [facility] Creatinine [Mass/Vol] 0.97 mg/dL Normal 0.73-1.22 [facility] Comment on above: Order Comment: Speci men Type: BLOOD SPECIMENOrdering Facility: [facility] Address: [address] [place], [place] [phone] Performed By: #### 2 4362-6 ####[facility] LABCLIA [id number] [address] [place] ESTIMATED GLOMERULAR FILTRATION RATE 79 mL/min/1.73m??? Normal >=60 [facility] Comment on above: Order Comment: Speci men Type: BLOOD SPECIMENOrdering Facility: [facility] Address: [address] [place], [place] [phone] Result Comment: Sandra mated Glomerular Filtration Rate [...] actual GFR. Performed By: #### 2 4362-6 ####[facility] LABCLIA [id number] [place] [address] [place] Glucose [Mass/Vol] 121 mg/dL High 74-99 [facility] Comment on above: Order Comment: Speci men Type: BLOOD SPECIMENOrdering Facility: [facility] Address: [address] [place] [address] Result Comment: The [place] [employer] (ADA) provides guidance for cutoff [...] Standards of Medical Care in Diabetes 2016, [place] [employer]. Diabetes Care. 2016.39(Suppl 1). Performed By: #### 2 4362-6 ####[facility] LABCLIA [id number] [place] [address] [place] Phosphate [Mass/Vol] 2.5 mg/dL Low 2.7-4.8 [facility] Comment on above: Order Comment: Speci men Type: BLOOD SPECIMENOrdering Facility: [facility] Address: [address] [place] [phone] Performed By: #### 2 4362-6 ####[facility] LABIA [id number] [place] [address] [place] Potassium [Moles/Vol] 3.1 mmol/L Low 3.7-5.1 [facility] Comment on above: Order Comment: Speci men Type: BLOOD SPECIMENOrdering Facility: [facility] Address: [address] [place] [address] Performed By: #### 2 4362-6 ####[facility] LABCLIA [id number] [place] [address] [place] Sodium [Moles/Vol] 143 mmol/L Normal 136-144 [facility] Comment on above: Order Comment: Speci men Type: BLOOD SPECIMENOrdering Facility: [facility] Address: [address] [place] [address] Performed By: #### 2 4362-6 ####[facility] LABCLIA [id number] [place] [address] [place] Urea nitrogen [Mass/Vol] 4 mg/dL Low 9-24 [facility] Comment on above: Order Comment: Speci men Type: BLOOD SPECIMENOrdering Facility: [facility] Address: [address] [place] [address] Performed By: #### 2 4362-6 ####[facility] LABCLIA [id number] [place] [address] [place] TYPE + SCREENon 11-15-2021 ABO O Normal [facility] Comment on above: Order Comment: Speci men Type: BLOOD SPECIMENOrdering Facility: [facility] Address: [address] [place] [address] Performed By: #### T SCR ####[facility] BLOOD BANKCLIA [id number] [place] [address] [place] HISTORICAL AB SCR STATUS Negative Normal [facility] Comment on above: Order Comment: Speci men Type: BLOOD SPECIMENOrdering Facility: [facility] Address: [address] [place], [place] [phone] Performed By: #### T SCR ####[facility] BLOOD BANKIA [id number] [place] [address] [place] Rh Nom (Bld) Positive Normal [facility] Comment on above: Order Comment: Speci men Type: BLOOD SPECIMENOrdering Facility: [facility] Address: [address] [place], [place] [phone] Performed By: #### T SCR ####[facility] BLOOD BANKCLIA [id number] [address] [id number] [place] TYPE AND SCREEN EXPIRATION 11/18/2021 23:59 Normal [facility] Comment on above: Order Comment: Speci men Type: BLOOD SPECIMENOrdering Facility: [facility] Address: [address] [place] [address] Performed By: #### T SCR ####[facility] BLOOD BANKCLIA [id number] [address] [id number] [place] Basic metabolic 2000 panelon 11-14-2021 Anion gap [Moles/Vol] 8 mmol/L Low 9-18 [facility] Comment on above: Order Comment: Speci men Type: BLOOD SPECIMENOrdering Facility: [facility] Address: [address] [place] [address] Performed By: #### 2 4321-2 ####[facility] LABCLIA [id number] [place] [address] [place] Calcium [Mass/Vol] 8.8 mg/dL Normal 8.5-10.2 [facility] Comment on above: Order Comment: Speci men Type: BLOOD SPECIMENOrdering Facility: [facility] Address: [address] [place], [place] [phone] Performed By: #### 2 4321-2 ####[facility] LABCLIA [id number] [place] [address] [place] Chloride [Moles/Vol] 110 mmol/L High 97-105 [facility] Comment on above: Order Comment: Speci men Type: BLOOD SPECIMENOrdering Facility: [facility] Address: [address] [place], [place] [phone] Performed By: #### 2 4321-2 ####[facility] LABCLIA [id number] [place] [address] [place] CO2 [Moles/Vol] 24 mmol/L Normal 22-30 [facility] Comment on above: Order Comment: Speci men Type: BLOOD SPECIMENOrdering Facility: [facility] Address: [address] [place] [address] Performed By: #### 2 4321-2 ####[facility] LABCLIA [id number] [place] [address] [place] Creatinine [Mass/Vol] 0.96 mg/dL Normal 0.73-1.22 [facility] Comment on above: Order Comment: Speci men Type: BLOOD SPECIMENOrdering Facility: [facility] Address: [address] [place] [address] Performed By: #### 2 4321-2 ####[facility] LABIA [id number] [place] [address] [place] ESTIMATED GLOMERULAR FILTRATION RATE 80 mL/min/1.73m??? Normal >=60 [facility] Comment on above: Order Comment: Speci men Type: BLOOD SPECIMENOrdering Facility: [facility] Address: [address] [place] [address] Result Comment: Sandra mated Glomerular Filtration Rate [...] actual GFR. Performed By: #### 2 4321-2 ####[facility] LABIA [id number] [facility] [place] [address] [place] Glucose [Mass/Vol] 113 mg/dL High 74-99 [facility] Comment on above: Order Comment: Speci men Type: BLOOD SPECIMENOrdering Facility: [facility] Address: [address] [place] [address] Result Comment: The [place] [employer] Association (ADA) provides guidance for cutoff [...] Standards of Medical Care in Diabetes 2016, [place] [employer]. Diabetes Care. 2016.39(Suppl 1). Performed By: #### 2 4321-2 ####[facility] LABCLIA [id number] [place] [address] [place] Potassium [Moles/Vol] 3.0 mmol/L Low 3.7-5.1 [facility] Comment on above: Order Comment: Speci men Type: BLOOD SPECIMENOrdering Facility: [facility] Address: [address] [place] [address] Performed By: #### 2 4321-2 ####[facility] LABIA [id number] [place] [address] [place] Sodium [Moles/Vol] 142 mmol/L Normal 136-144 [facility] Comment on above: Order Comment: Speci men Type: BLOOD SPECIMENOrdering Facility: [facility] Address: [address] [place] [address] Performed By: #### 2 4321-2 ####[facility] LABCLIA [id number] [place] [address] [place] Urea nitrogen [Mass/Vol] 3 mg/dL Low 9-24 [facility] Comment on above: Order Comment: Speci men Type: BLOOD SPECIMENOrdering Facility: [facility] Address: [address] [place] [address] Performed By: #### 2 4321-2 ####[facility] LABCLIA [id number] [place] [address] [place] CASE MANAGEMon 11-14-2021 CASE MANAGEM Normal [facility] CBC panel Auto (Bld)on 11-14 Erythrocyte distribution width (RBC) [Ratio] 13.3 % Normal 11.5-15.0 [facility] Comment on above: Order Comment: Speci men Type: BLOOD SPECIMENOrdering Facility: [facility] Address: [address] [place], [place] [phone] Performed By: #### 5 8410-2 ####[facility] [id number] [place] [address] [place] Hematocrit (Bld) [Volume fraction] 29.7 % Low 39.0-51.0 [facility] Comment on above: Order Comment: Speci men Type: BLOOD SPECIMENOrdering Facility: [facility] Address: [address] [place], [place] [phone] Performed By: #### 5 8410-2 ####[facility] [id number] [place] [address] [place] Hemoglobin (Bld) [Mass/Vol] 9.4 g/dL Low 13.0-17.0 [facility] Comment on above: Order Comment: Speci men Type: BLOOD SPECIMENOrdering Facility: [facility] Address: [address] [place], [place] [address] Performed By: #### 5 8410-2 ####[facility] LABIA [id number] [place] [address] [place] MCH (RBC) [Entitic mass] 30.2 pg Normal 26.0-34.0 [facility] Comment on above: Order Comment: Speci men Type: BLOOD SPECIMENOrdering Facility: [facility] Address: [address] [place], [place] [phone] Performed By: #### 5 8410-2 ####[facility] LABIA [id number] [place] MCHC (RBC) [Mass/Vol] 31.6 g/dL Normal 30.5-36.0 [facility] Comment on above: Order Comment: Speci men Type: BLOOD SPECIMENOrdering Facility: [facility] Address: [address] [place], [place] [address] Performed By: #### 5 8410-2 ####[facility] LABIA [id number] [place] [address] [place] MCV (RBC) [Entitic vol] 95.5 fL Normal 80.0-100.0 [facility] Comment on above: Order Comment: Speci men Type: BLOOD SPECIMENOrdering Facility: [facility] Address: [address] [place], [place] [address] Performed By: #### 5 8410-2 ####[facility] LABIA [id number] [place] [address] [place] Nucleated RBC (Bld) [#/Vol] 10*3/uL Normal <0.01 [facility] Comment on above: Order Comment: Speci men Type: BLOOD SPECIMENOrdering Facility: [facility] Address: [address] [place], [place] [phone] Performed By: #### 5 8410-2 ####[facility] LABIA [id number] [place] [address] [place] Platelet mean volume (Bld) [Entitic vol] 9.6 fL Normal 9.0-12.7 [facility] Comment on above: Order Comment: Speci men Type: BLOOD SPECIMENOrdering Facility: [facility] Address: [address] [place], [place] [phone] Performed By: #### 5 8410-2 ####[facility] LABCLIA [id number] [place] [address] [place] Platelets (Bld) [#/Vol] 308 10*3/uL Normal 150-400 [facility] Comment on above: Order Comment: Speci men Type: BLOOD SPECIMENOrdering Facility: [facility] Address: [address] [place], [place] [address] Performed By: #### 5 8410-2 ####[facility] LABCLIA [id number] [place] [address] [place] RBC (Bld) [#/Vol] 3.11 10*6/uL Low 4.20-6.00 [facility] Comment on above: Order Comment: Speci men Type: BLOOD SPECIMENOrdering Facility: [facility] Address: [address] [place], [place] [address] Performed By: #### 5 8410-2 ####[facility] LABCLIA [id number] [place] [address] [place] WBC (Bld) [#/Vol] 9.48 10*3/uL Normal 3.70-11.00 [facility] Comment on above: Order Comment: Speci men Type: BLOOD SPECIMENOrdering Facility: [facility] Address: [address] [place], [place] [address] Performed By: #### 5 8410-2 ####[facility] LABIA [id number] [place] [address] [place] NURSING PROGon 11-14-2021 NURSING PROG Normal [facility] NUTRITIONon 11-14-2021 NUTRITION Normal [facility] PTT, ANTICOAGULANT THERAPYon 11-14-2021 aPTT Coag (PPP) [Time] 49.0 s High 23.0-32.4 [facility] Comment on above: Order Comment: Speci men Type: BLOOD SPECIMENOrdering Facility: [facility] Address: [address] [place], [place] [address] Performed By: #### P TTAC ####[facility] LABCLIA [id number] [place] [address] [place] Renal function 2000 panelon 11-14-2021 Albumin [Mass/Vol] 2.1 g/dL Low 3.9-4.9 [facility] Comment on above: Order Comment: Speci men Type: BLOOD SPECIMENOrdering Facility: [facility] Address: [address] [place], [place] [address] Performed By: #### 2 4362-6 ####[facility] LABCLIA [id number] [place] [address] [place] Anion gap [Moles/Vol] 10 mmol/L Normal 9-18 [facility] Comment on above: Order Comment: Speci men Type: BLOOD SPECIMENOrdering Facility: [facility] Address: [address] [place], [place] [address] Performed By: #### 2 4362-6 ####[facility] LABCLIA [id number] [place] [address] [place] Calcium [Mass/Vol] 8.3 mg/dL Low 8.5-10.2 [facility] Comment on above: Order Comment: Speci men Type: BLOOD SPECIMENOrdering Facility: [facility] Address: [address] [place], [place] [address] Performed By: #### 2 4362-6 ####[facility] LABCLIA [id number] [place] [address] [place] Chloride [Moles/Vol] 111 mmol/L High 97-105 [facility] Comment on above: Order Comment: Speci men Type: BLOOD SPECIMENOrdering Facility: [facility] Address: [address] [place], [place] [address] Performed By: #### 2 4362-6 ####[facility] LABCLIA [id number] [place] [address] [place] CO2 [Moles/Vol] 21 mmol/L Low 22-30 [facility] Comment on above: Order Comment: Speci men Type: BLOOD SPECIMENOrdering Facility: [facility] Address: [address] [id number] Performed By: #### 2 4362-6 ####[facility] [id number] [address] STATES [facility] Creatinine [Mass/Vol] 0.91 mg/dL Normal 0.73-1.22 [facility] Comment on above: Order Comment: Speci men Type: BLOOD SPECIMENOrdering Facility: [facility] Address: [address] [place] [address] Performed By: #### 2 4362-6 ####[facility] LABIA [id number] [address] OF [facility] ESTIMATED GLOMERULAR FILTRATION RATE 86 mL/min/1.73m??? Normal >=60 [facility] Comment on above: Order Comment: Lucilai men Type: BLOOD SPECIMENOrdering Facility: [facility] Address: [address] [place] [address] Result Comment: Sandra mated Glomerular Filtration Rate [...] actual GFR. Performed By: #### 2 4362-6 ####[facility] LABIA [id number] [address] [place] Glucose [Mass/Vol] 97 mg/dL Normal 74-99 [facility] Comment on above: Order Comment: Speci men Type: BLOOD SPECIMENOrdering Facility: [facility] Address: [address] [place] [address] Result Comment: The [place] [employer] Association (ADA) provides guidance for cutoff [...] Standards of Medical Care in Diabetes 2016, [place] [employer]. Diabetes Care. 2016.39(Suppl 1). Performed By: #### 2 4362-6 ####[facility] LABCLIA [id number] [place] [address] [place] Phosphate [Mass/Vol] 2.3 mg/dL Low 2.7-4.8 [facility] Comment on above: Order Comment: Speci men Type: BLOOD SPECIMENOrdering Facility: [facility] Address: [address] [place] [address] Performed By: #### 2 4362-6 ####[facility] LABIA [id number] [place] [address] [place] Potassium [Moles/Vol] 3.0 mmol/L Low 3.7-5.1 [facility] Comment on above: Order Comment: Speci men Type: BLOOD SPECIMENOrdering Facility: [facility] Address: [address] [place] [address] Performed By: #### 2 4362-6 ####[facility] LABIA [id number] [place] [address] [place] Sodium [Moles/Vol] 142 mmol/L Normal 136-144 [facility] Comment on above: Order Comment: Speci men Type: BLOOD SPECIMENOrdering Facility: [facility] Address: [address] [place], [place] [phone] Performed By: #### 2 4362-6 ####[facility] LABCLIA [id number] [place] [address] [place] Urea nitrogen [Mass/Vol] 3 mg/dL Low 9-24 [facility] Comment on above: Order Comment: Speci men Type: BLOOD SPECIMENOrdering Facility: [facility] Address: [address] [place] [address] Performed By: #### 2 4362-6 ####[facility] LABCLIA [id number] [place] [address] [place] CBC panel Auto (Bld)on 11-13 Erythrocyte distribution width (RBC) [Ratio] 13.5 % Normal 11.5-15.0 [facility] Comment on above: Order Comment: Speci men Type: BLOOD SPECIMENOrdering Facility: [facility] Address: [address] [place] [address] Performed By: #### 5 8410-2 ####[facility] LABIA [id number] [place] [address] [place] Hematocrit (Bld) [Volume fraction] 27.3 % Low 39.0-51.0 [facility] Comment on above: Order Comment: Speci men Type: BLOOD SPECIMENOrdering Facility: [facility] Address: [address] [place] [address] Performed By: #### 5 8410-2 ####[facility] LABIA [id number] [place] [address] [place] Hemoglobin (Bld) [Mass/Vol] 8.8 g/dL Low 13.0-17.0 [facility] Comment on above: Order Comment: Speci men Type: BLOOD SPECIMENOrdering Facility: [facility] Address: [address] [place] [address] Performed By: #### 5 8410-2 ####[facility] LABIA [id number] [place] [address] [place] MCH (RBC) [Entitic mass] 30.6 pg Normal 26.0-34.0 [facility] Comment on above: Order Comment: Speci men Type: BLOOD SPECIMENOrdering Facility: [facility] Address: [address] [place], [place] [address] Performed By: #### 5 8410-2 ####[facility] LABIA [id number] [address] MCHC (RBC) [Mass/Vol] 32.2 g/dL Normal 30.5-36.0 [facility] Comment on above: Order Comment: Speci men Type: BLOOD SPECIMENOrdering Facility: [facility] Address: [address] [place], [place] [address] Performed By: #### 5 8410-2 ####[facility] LABIA [id number] [place] [address] [place] MCV (RBC) [Entitic vol] 94.8 fL Normal 80.0-100.0 [facility] Comment on above: Order Comment: Speci men Type: BLOOD SPECIMENOrdering Facility: [facility] Address: [address] [place], [place] [address] Performed By: #### 5 8410-2 ####[facility] [id number] [place] [address] [place] Nucleated RBC (Bld) [#/Vol] 10*3/uL Normal <0.01 [facility] Comment on above: Order Comment: Speci men Type: BLOOD SPECIMENOrdering Facility: [facility] Address: [address] [place] [address] Performed By: #### 5 8410-2 ####[facility] LABIA [id number] [place] [address] [place] Platelet mean volume (Bld) [Entitic vol] 9.7 fL Normal 9.0-12.7 [facility] Comment on above: Order Comment: Speci men Type: BLOOD SPECIMENOrdering Facility: [facility] Address: [address] [place], [place] [address] Performed By: #### 5 8410-2 ####[facility] LABCLIA [id number] [place] [address] [place] Platelets (Bld) [#/Vol] 309 10*3/uL Normal 150-400 [facility] Comment on above: Order Comment: Speci men Type: BLOOD SPECIMENOrdering Facility: [facility] Address: [address] [place], [place] [address] Performed By: #### 5 8410-2 ####[facility] LABIA [id number] [place] [address] [place] RBC (Bld) [#/Vol] 2.88 10*6/uL Low 4.20-6.00 [facility] Comment on above: Order Comment: Speci men Type: BLOOD SPECIMENOrdering Facility: [facility] Address: [address] [place], [place] [address] Performed By: #### 5 8410-2 ####[facility] LABIA [id number] [place] [address] [place] WBC (Bld) [#/Vol] 10.12 10*3/uL Normal 3.70-11.00 [facility] Comment on above: Order Comment: Speci men Type: BLOOD SPECIMENOrdering Facility: [facility] Address: [address] [place], [place] [address] Performed By: #### 5 8410-2 ####[facility] [id number] [place] [address] [place] NURSING PROGon 11-13-2021 NURSING PROG Normal [facility] NURSING PROG Normal [facility] PTT, ANTICOAGULANT THERAPYon 11-13-2021 aPTT Coag (PPP) [Time] 61.2 s High 23.0-32.4 [facility] Comment on above: Order Comment: Speci men Type: BLOOD SPECIMENOrdering Facility: [facility] Address: [address] [place], [place] [phone] Performed By: #### P TTAC ####[facility] LABCLIA [id number] [place] [address] [place] aPTT Coag (PPP) [Time] 63.9 s High 23.0-32.4 [facility] Comment on above: Order Comment: Speci men Type: BLOOD SPECIMENOrdering Facility: [facility] Address: [address] [place], [place] [address] Performed By: #### P TTAC ####[facility] LABCLIA [id number] [place] [address] [place] aPTT Coag (PPP) [Time] 43.6 s High 23.0-32.4 [facility] Comment on above: Order Comment: Speci men Type: BLOOD SPECIMENOrdering Facility: [facility] Address: [address] [place], [place] [address] Performed By: #### P TTAC ####[facility] LABIA [id number] [address] [place] aPTT Coag (PPP) [Time] 61.4 s High 23.0-32.4 [facility] Comment on above: Order Comment: Speci men Type: BLOOD SPECIMENOrdering Facility: [facility] Address: [address] [place], [place] [phone] Performed By: #### P TTAC ####[facility] LABCLIA [id number] [place] [address] [place] Renal function 2000 panelon 11-13-2021 Albumin [Mass/Vol] 2.3 g/dL Low 3.9-4.9 [facility] Comment on above: Order Comment: Speci men Type: BLOOD SPECIMENOrdering Facility: [facility] Address: [address] [place], [place] [address] Performed By: #### 2 4362-6 ####[facility] LABCLIA [id number] [place] [address] [place] Anion gap [Moles/Vol] 9 mmol/L Normal 9-18 [facility] Comment on above: Order Comment: Speci men Type: BLOOD SPECIMENOrdering Facility: [facility] Address: [address] [place] [address] Performed By: #### 2 4362-6 ####[facility] LABCLIA [id number] [place] [address] [place] Calcium [Mass/Vol] 8.3 mg/dL Low 8.5-10.2 [facility] Comment on above: Order Comment: Speci men Type: BLOOD SPECIMENOrdering Facility: [facility] Address: [address] [place], [place] [address] Performed By: #### 2 4362-6 ####[facility] LABCLIA [id number] [place] [address] [place] Chloride [Moles/Vol] 113 mmol/L High 97-105 [facility] Comment on above: Order Comment: Speci men Type: BLOOD SPECIMENOrdering Facility: [facility] Address: [address] [place] [address] Performed By: #### 2 4362-6 ####[facility] LABCLIA [id number] [place] [address] [place] CO2 [Moles/Vol] 21 mmol/L Low 22-30 [facility] Comment on above: Order Comment: Speci men Type: BLOOD SPECIMENOrdering Facility: [facility] Address: [address] [place] [address] Performed By: #### 2 4362-6 ####[facility] LABCLIA [id number] [place] [address] [place] Creatinine [Mass/Vol] 1.01 mg/dL Normal 0.73-1.22 [facility] Comment on above: Order Comment: Speci men Type: BLOOD SPECIMENOrdering Facility: [facility] Address: [address] [place] [address] Performed By: #### 2 4362-6 ####[facility] LABIA [id number] [address] [place] ESTIMATED GLOMERULAR FILTRATION RATE 76 mL/min/1.73m??? Normal >=60 [facility] Comment on above: Order Comment: Misbah padilla Type: BLOOD SPECIMENOrdering Facility: [facility] Address: [address] [place] [address] Result Comment: Sandra mated Glomerular Filtration Rate [...] actual GFR. Performed By: #### 2 4362-6 ####[facility] LABIA [id number] [place] [address] [place] Glucose [Mass/Vol] 123 mg/dL High 74-99 [facility] Comment on above: Order Comment: Misbah padilla Type: BLOOD SPECIMENOrdering Facility: [facility] Address: [address] [place] [address] Result Comment: The [place] [employer] (ADA) provides guidance for cutoff [...] Standards of Medical Care in Diabetes 2016, [place] [employer]. Diabetes Care. 2016.39(Suppl 1). Performed By: #### 2 4362-6 ####[facility] LABCLIA [id number] [place] [address] [place] Phosphate [Mass/Vol] 2.9 mg/dL Normal 2.7-4.8 [facility] Comment on above: Order Comment: Speci men Type: BLOOD SPECIMENOrdering Facility: [facility] Address: [address] [place], [place] [address] Performed By: #### 2 4362-6 ####[facility] LABCLIA [id number] [place] [address] [place] Potassium [Moles/Vol] 3.2 mmol/L Low 3.7-5.1 [facility] Comment on above: Order Comment: Speci men Type: BLOOD SPECIMENOrdering Facility: [facility] Address: [address] [place], [place] [address] Performed By: #### 2 4362-6 ####[facility] LABIA [id number] [place] [address] [place] Sodium [Moles/Vol] 143 mmol/L Normal 136-144 [facility] Comment on above: Order Comment: Speci men Type: BLOOD SPECIMENOrdering Facility: [facility] Address: [address] [place], [place] [address] Performed By: #### 2 4362-6 ####[facility] LABCLIA [id number] [place] [address] [place] Urea nitrogen [Mass/Vol] 5 mg/dL Low 9-24 [facility] Comment on above: Order Comment: Speci men Type: BLOOD SPECIMENOrdering Facility: [facility] Address: [address] [place] [address] Performed By: #### 2 4362-6 ####[facility] LABCLIA [id number] [place] [id number] [place] CASE MANAGEMon 11-12-2021 CASE MANAGEM Normal [facility] CBC panel Auto (Bld)on 11-12 Erythrocyte distribution width (RBC) [Ratio] 13.8 % Normal 11.5-15.0 [facility] Comment on above: Order Comment: Speci men Type: BLOOD SPECIMENOrdering Facility: [facility] Address: [address] [place] [address] Performed By: #### 5 8410-2 ####[facility] LABIA [id number] [address] OF [facility] Hematocrit (Bld) [Volume fraction] 27.9 % Low 39.0-51.0 [facility] Comment on above: Order Comment: Speci men Type: BLOOD SPECIMENOrdering Facility: [facility] Address: [address] [place] [address] Performed By: #### 5 8410-2 ####[facility] LABIA [id number] [address] OF [facility] Hemoglobin (Bld) [Mass/Vol] 8.9 g/dL Low 13.0-17.0 [facility] Comment on above: Order Comment: Speci men Type: BLOOD SPECIMENOrdering Facility: [facility] Address: [address] [place] [address] Performed By: #### 5 8410-2 ####[facility] LABIA [id number] [place] [address] [place] MCH (RBC) [Entitic mass] 30.1 pg Normal 26.0-34.0 [facility] Comment on above: Order Comment: Speci men Type: BLOOD SPECIMENOrdering Facility: [facility] Address: [address] [place], [place] [address] Performed By: #### 5 8410-2 ####[facility] LABCLIA [id number] [address] [place] MCHC (RBC) [Mass/Vol] 31.9 g/dL Normal 30.5-36.0 [facility] Comment on above: Order Comment: Speci men Type: BLOOD SPECIMENOrdering Facility: [facility] Address: [address] [place] [address] Performed By: #### 5 8410-2 ####[facility] LABIA [id number] [address] [place] MCV (RBC) [Entitic vol] 94.3 fL Normal 80.0-100.0 [facility] Comment on above: Order Comment: Speci men Type: BLOOD SPECIMENOrdering Facility: [facility] Address: [address] [place], [place] [address] Performed By: #### 5 8410-2 ####[facility] LABIA [id number] [place] [address] [place] Nucleated RBC (Bld) [#/Vol] 10*3/uL Normal <0.01 [facility] Comment on above: Order Comment: Speci men Type: BLOOD SPECIMENOrdering Facility: [facility] Address: [address] [place], [place] [address] Performed By: #### 5 8410-2 ####[facility] LABIA [id number] [place] [address] [place] Platelet mean volume (Bld) [Entitic vol] 9.5 fL Normal 9.0-12.7 [facility] Comment on above: Order Comment: Speci men Type: BLOOD SPECIMENOrdering Facility: [facility] Address: [address] [place] [address] Performed By: #### 5 8410-2 ####[facility] LABCLIA [id number] [place] [address] [place] Platelets (Bld) [#/Vol] 349 10*3/uL Normal 150-400 [facility] Comment on above: Order Comment: Speci men Type: BLOOD SPECIMENOrdering Facility: [facility] Address: [address] [place], [place] [address] Performed By: #### 5 8410-2 ####[facility] LABIA [id number] [place] [address] [place] RBC (Bld) [#/Vol] 2.96 10*6/uL Low 4.20-6.00 [facility] Comment on above: Order Comment: Speci men Type: BLOOD SPECIMENOrdering Facility: [facility] Address: [address] [place], [place] [address] Performed By: #### 5 8410-2 ####[facility] [id number] [place] [address] [place] WBC (Bld) [#/Vol] 10.19 10*3/uL Normal 3.70-11.00 [facility] Comment on above: Order Comment: Speci men Type: BLOOD SPECIMENOrdering Facility: [facility] Address: [address] [place], [place] [address] Performed By: #### 5 8410-2 ####[facility] [id number] [place] [address] [place] Erythrocyte distribution width (RBC) [Ratio] 13.6 % Normal 11.5-15.0 [facility] Comment on above: Order Comment: Speci men Type: BLOOD SPECIMENOrdering Facility: [facility] Address: [address] [place], [place] [address] Performed By: #### 5 8410-2 ####[facility] [id number] [place] [address] [place] Hematocrit (Bld) [Volume fraction] 26.6 % Low 39.0-51.0 [facility] Comment on above: Order Comment: Speci men Type: BLOOD SPECIMENOrdering Facility: [facility] Address: [address] [place], [place] [address] Performed By: #### 5 8410-2 ####[facility] LABCLIA [id number] [place] [address] [place] Hemoglobin (Bld) [Mass/Vol] 8.4 g/dL Low 13.0-17.0 [facility] Comment on above: Order Comment: Speci men Type: BLOOD SPECIMENOrdering Facility: [facility] Address: [address] [place], [place] [address] Performed By: #### 5 8410-2 ####[facility] LABIA [id number] [address] [place] MCH (RBC) [Entitic mass] 30.1 pg Normal 26.0-34.0 [facility] Comment on above: Order Comment: Speci men Type: BLOOD SPECIMENOrdering Facility: [facility] Address: [address] [place] [address] Performed By: #### 5 8410-2 ####[facility] LABIA [id number] [address] [place] MCHC (RBC) [Mass/Vol] 31.6 g/dL Normal 30.5-36.0 [facility] Comment on above: Order Comment: Speci men Type: BLOOD SPECIMENOrdering Facility: [facility] Address: [address] [place], [place] [address] Performed By: #### 5 8410-2 ####[facility] LABIA [id number] [address] [place] MCV (RBC) [Entitic vol] 95.3 fL Normal 80.0-100.0 [facility] Comment on above: Order Comment: Speci men Type: BLOOD SPECIMENOrdering Facility: [facility] Address: [address] [place], [place] [address] Performed By: #### 5 8410-2 ####[facility] LABIA [id number] [id number] [address] [place] Nucleated RBC (Bld) [#/Vol] 10*3/uL Normal <0.01 [facility] Comment on above: Order Comment: Speci men Type: BLOOD SPECIMENOrdering Facility: [facility] Address: [address] [place], [place] [address] Performed By: #### 5 8410-2 ####[facility] LABCLIA [id number] [place] [address] [place] Platelet mean volume (Bld) [Entitic vol] 9.7 fL Normal 9.0-12.7 [facility] Comment on above: Order Comment: Speci men Type: BLOOD SPECIMENOrdering Facility: [facility] Address: [address] [place], [place] [address] Performed By: #### 5 8410-2 ####[facility] LABCLIA [id number] [place] [address] [place] Platelets (Bld) [#/Vol] 313 10*3/uL Normal 150-400 [facility] Comment on above: Order Comment: Speci men Type: BLOOD SPECIMENOrdering Facility: [facility] Address: [address] [place], [place] [address] Performed By: #### 5 8410-2 ####[facility] LABCLIA [id number] [place] [address] [place] RBC (Bld) [#/Vol] 2.79 10*6/uL Low 4.20-6.00 [facility] Comment on above: Order Comment: Speci men Type: BLOOD SPECIMENOrdering Facility: [facility] Address: [address] [place], [place] [address] Performed By: #### 5 8410-2 ####[facility] LABCLIA [id number] [place] [address] [place] WBC (Bld) [#/Vol] 9.10 10*3/uL Normal 3.70-11.00 [facility] Comment on above: Order Comment: Speci men Type: BLOOD SPECIMENOrdering Facility: [facility] Address: [address] [place] [address] Performed By: #### 5 8410-2 ####[facility] LABCLIA [id number] [place] [address] [place] NURSING PROGon 11-12-2021 NURSING PROG Normal [facility] PTT, ANTICOAGULANT THERAPYon 11-12-2021 aPTT Coag (PPP) [Time] 80.0 s High 23.0-32.4 [facility] Comment on above: Order Comment: Speci men Type: BLOOD SPECIMENOrdering Facility: [facility] Address: [address] [place] [address] Result Comment: Inte rpret with caution. Sample centrifuged greater than 1 hour from collection time. According to Clinical and Laboratory Standards [place] guidelines, results could be falsely decreased due to heparin neutralization by in vitro release of platelet factor 4. Suggest correlation with clinical findings and redraw if indicated. Performed By: #### P TTAC ####[facility] LABCLIA [id number] [address] aPTT Coag (PPP) [Time] 47.9 s High 23.0-32.4 [facility] Comment on above: Order Comment: Speci men Type: BLOOD SPECIMENOrdering Facility: [facility] Address: [address] [place], [place] [phone] Performed By: #### P TTAC ####[facility] LABCLIA [id number] [address] [place] [facility] aPTT Coag (PPP) [Time] 46.5 s High 23.0-32.4 [facility] Comment on above: Order Comment: Speci men Type: BLOOD SPECIMENOrdering Facility: [facility] Address: [address] [place] [address] Performed By: #### P TTAC ####[facility] LABCLIA [id number] [place] [address] [place] Renal function 2000 panelon 11-12-2021 Albumin [Mass/Vol] 2.7 g/dL Low 3.9-4.9 [facility] Comment on above: Order Comment: Speci men Type: BLOOD SPECIMENOrdering Facility: [facility] Address: [address] [place] [address] Performed By: #### 2 4362-6 ####[facility] LABCLIA [id number] [place] [address] [place] Anion gap [Moles/Vol] 11 mmol/L Normal 9-18 [facility] Comment on above: Order Comment: Speci men Type: BLOOD SPECIMENOrdering Facility: [facility] Address: [address] [place], [place] [address] Performed By: #### 2 4362-6 ####[facility] LABIA [id number] [place] [address] [place] Calcium [Mass/Vol] 8.3 mg/dL Low 8.5-10.2 [facility] Comment on above: Order Comment: Speci men Type: BLOOD SPECIMENOrdering Facility: [facility] Address: [address] [place] [address] Performed By: #### 2 4362-6 ####[facility] LABIA [id number] [place] [address] [place] Chloride [Moles/Vol] 111 mmol/L High 97-105 [facility] Comment on above: Order Comment: Speci men Type: BLOOD SPECIMENOrdering Facility: [facility] Address: [address] [place], [place] [address] Performed By: #### 2 4362-6 ####[facility] LABIA [id number] [place] [id number] [place] CO2 [Moles/Vol] 21 mmol/L Low 22-30 [facility] Comment on above: Order Comment: Speci men Type: BLOOD SPECIMENOrdering Facility: [facility] Address: [address] [place] [address] Performed By: #### 2 4362-6 ####[facility] LABIA [id number] [place] [address] [place] Creatinine [Mass/Vol] 1.07 mg/dL Normal 0.73-1.22 [facility] Comment on above: Order Comment: Speci men Type: BLOOD SPECIMENOrdering Facility: [facility] Address: [address] [place] [address] Performed By: #### 2 4362-6 ####[facility] LABIA [id number] [address] [place] ESTIMATED GLOMERULAR FILTRATION RATE 71 mL/min/1.73m??? Normal >=60 [facility] Comment on above: Order Comment: Speci men Type: BLOOD SPECIMENOrdering Facility: [facility] Address: [address] [place] [address] Result Comment: Sandra mated Glomerular Filtration Rate [...] actual GFR. Performed By: #### 2 4362-6 ####[facility] LABIA [id number] [place] [address] [place] Glucose [Mass/Vol] 133 mg/dL High 74-99 [facility] Comment on above: Order Comment: Speci men Type: BLOOD SPECIMENOrdering Facility: [facility] Address: [address] [place] [address] Result Comment: The [place] Diabetes [employer] (ADA) provides guidance for cutoff [...] Standards of Medical Care in Diabetes 2016, [place] [employer]. Diabetes Care. 2016.39(Suppl 1). Performed By: #### 2 4362-6 ####[facility] LABCLIA [id number] [place] [address] [place] Phosphate [Mass/Vol] 2.8 mg/dL Normal 2.7-4.8 [facility] Comment on above: Order Comment: Speci men Type: BLOOD SPECIMENOrdering Facility: [facility] Address: [address] [place] [address] Performed By: #### 2 4362-6 ####[facility] LABIA [id number] [place] [address] [place] Potassium [Moles/Vol] 3.0 mmol/L Low 3.7-5.1 [facility] Comment on above: Order Comment: Speci men Type: BLOOD SPECIMENOrdering Facility: [facility] Address: [address] [place] [address] Performed By: #### 2 4362-6 ####[facility] LABCLIA [id number] [place] [address] [place] Sodium [Moles/Vol] 143 mmol/L Normal 136-144 [facility] Comment on above: Order Comment: Speci men Type: BLOOD SPECIMENOrdering Facility: [facility] Address: [address] [place] [address] Performed By: #### 2 4362-6 ####[facility] LABCLIA [id number] [address] [place] Urea nitrogen [Mass/Vol] 9 mg/dL Normal 9-24 [facility] Comment on above: Order Comment: Speci men Type: BLOOD SPECIMENOrdering Facility: [facility] Address: [address] [place] [address] Performed By: #### 2 4362-6 ####[facility] LABCLIA [id number] [place] [address] [place] THERAPY NTon 11-12-2021 THERAPY NT Normal [facility] CBC panel Auto (Bld)on 11-11 Erythrocyte distribution width (RBC) [Ratio] 13.6 % Normal 11.5-15.0 [facility] Comment on above: Order Comment: Speci men Type: BLOOD SPECIMENOrdering Facility: [facility] Address: [address] [place] [address] Performed By: #### 5 8410-2 ####[facility] LABIA [id number] [address] [place] Hematocrit (Bld) [Volume fraction] 27.6 % Low 39.0-51.0 [facility] Comment on above: Order Comment: Speci men Type: BLOOD SPECIMENOrdering Facility: [facility] Address: [address] [place] [address] Performed By: #### 5 8410-2 ####[facility] LABCLIA [id number] [place] [address] [place] Hemoglobin (Bld) [Mass/Vol] 8.9 g/dL Low 13.0-17.0 [facility] Comment on above: Order Comment: Speci men Type: BLOOD SPECIMENOrdering Facility: [facility] Address: [address] [place] [address] Performed By: #### 5 8410-2 ####[facility] LABCLIA [id number] [place] [address] [place] MCH (RBC) [Entitic mass] 30.3 pg Normal 26.0-34.0 [facility] Comment on above: Order Comment: Speci men Type: BLOOD SPECIMENOrdering Facility: [facility] Address: [address] [place], [place] [address] Performed By: #### 5 8410-2 ####[facility] LABCLIA [id number] [address] [place] MCHC (RBC) [Mass/Vol] 32.2 g/dL Normal 30.5-36.0 [facility] Comment on above: Order Comment: Speci men Type: BLOOD SPECIMENOrdering Facility: [facility] Address: [address] [place], [place] [address] Performed By: #### 5 8410-2 ####[facility] LABCLIA [id number] [address] [place] MCV (RBC) [Entitic vol] 93.9 fL Normal 80.0-100.0 [facility] Comment on above: Order Comment: Speci men Type: BLOOD SPECIMENOrdering Facility: [facility] Address: [address] [place], [place] [address] Performed By: #### 5 8410-2 ####[facility] LABCLIA [id number] [address] [place] Nucleated RBC (Bld) [#/Vol] 10*3/uL Normal <0.01 [facility] Comment on above: Order Comment: Speci men Type: BLOOD SPECIMENOrdering Facility: [facility] Address: [address] [place], [place] [address] Performed By: #### 5 8410-2 ####[facility] LABCLIA [id number] [address] [place] Platelet mean volume (Bld) [Entitic vol] 9.4 fL Normal 9.0-12.7 [facility] Comment on above: Order Comment: Speci men Type: BLOOD SPECIMENOrdering Facility: [facility] Address: [address] [place] [address] Performed By: #### 5 8410-2 ####[facility] LABCLIA [id number] [place] [address] [place] Platelets (Bld) [#/Vol] 351 10*3/uL Normal 150-400 [facility] Comment on above: Order Comment: Speci men Type: BLOOD SPECIMENOrdering Facility: [facility] Address: [address] [place] [address] Performed By: #### 5 8410-2 ####[facility] LABIA [id number] [place] [address] [place] RBC (Bld) [#/Vol] 2.94 10*6/uL Low 4.20-6.00 [facility] Comment on above: Order Comment: Speci men Type: BLOOD SPECIMENOrdering Facility: [facility] Address: [address] [place] [address] Performed By: #### 5 8410-2 ####[facility] LABIA [id number] [address] [place] WBC (Bld) [#/Vol] 9.02 10*3/uL Normal 3.70-11.00 [facility] Comment on above: Order Comment: Speci men Type: BLOOD SPECIMENOrdering Facility: [facility] Address: [address] [place] [address] Performed By: #### 5 8410-2 ####[facility] LABIA [id number] [address] OF [facility] CONFIRM BLOOD TYPEon 022 ABO O Normal [facility] Comment on above: Order Comment: Speci men Type: BLOOD SPECIMENOrdering Facility: [facility] Address: [address] [place] [address] Performed By: #### C ONABO ####[facility] BLOOD BANKCLIA [id number] [place] [address] [place] Rh Nom (Bld) Positive Normal [facility] Comment on above: Order Comment: Speci men Type: BLOOD SPECIMENOrdering Facility: [facility] Address: [address] [place] [address] Performed By: #### C ONABO ####[facility] BLOOD BANKCLIA [id number] [place] [address] [place] Gastrointestinal pathogens i dentified SHELLY+probe Nom (Stl)on 11-11-2021 Campylobacter sp DNA SHELLY+probe Nom (Unsp spec) Not detected Normal Not Detected [facility] Comment on above: Order Comment: Speci men Type: STOOL SPECIMENOrdering Facility: [facility] Address: [address] [place] [address] Performed By: #### 7 9390-1 ####[facility] LABCLIA [id number] [place] [address] [place] Salmonella sp DNA SHELLY+probe Ql (Unsp spec) Not detected Normal Not Detected [facility] Comment on above: Order Comment: Speci men Type: STOOL SPECIMENOrdering Facility: [facility] Address: [address] [place], [place] [address] Performed By: #### 7 9390-1 ####[facility] LABCLIA [id number] [place] [address] [place] Shiga toxin stx gene SHELLY+probe Nom (Unsp spec) Not detected Normal Not Detected [facility] Comment on above: Order Comment: Speci men Type: STOOL SPECIMENOrdering Facility: [facility] Address: [address] [place], [place] [address] Performed By: #### 7 9390-1 ####[facility] LABCLIA [id number] [place] [id number] Shigella sp DNA SHELLY+probe Ql (Unsp spec) Not detected Normal Not Detected [facility] Comment on above: Order Comment: Speci men Type: STOOL SPECIMENOrdering Facility: [facility] Address: [address] [place] [address] Performed By: #### 7 9390-1 ####[facility] LABCLIA [id number] [address] PT panel Coag (PPP)on 2021 INR Coag (PPP) [Relative time] 1.1 {INR} Normal 0.9-1.3 [facility] Comment on above: Order Comment: Lucilai valerie Type: BLOOD SPECIMENOrdering Facility: [facility] Address: [address] [place] [address] Result Comment: Pippa min K Antagonist (VKA) Therapeutic Range: INR 2 to 3 (Target INR of 2.5)Note: For patients treated with VKA drugs, such as warfarin, the [place] [employer] 2012 Guideline recommends [...] al. Chest 2012, 141:7S-47SLars RA, et al. [facility] 2017, 70: 252-289 Performed By: #### 3 4528-0, 38030-8 ####[facility] LABCLIA [id number] [address] [place] PT Coag (PPP) [Time] 11.1 s Normal 9.7-13.0 [facility] Comment on above: Order Comment: Speci men Type: BLOOD SPECIMENOrdering Facility: [facility] Address: [address] [place], [place] [address] Performed By: #### 3 4528-0, 18382-3 ####[facility] LABCLIA [id number] [place] [address] [place] Renal function 2000 panelon 11-11-2021 Albumin [Mass/Vol] 2.5 g/dL Low 3.9-4.9 [facility] Comment on above: Order Comment: Speci men Type: BLOOD SPECIMENOrdering Facility: [facility] Address: [address] [place], [place] [address] Performed By: #### 2 4362-6 ####[facility] LABCLIA [id number] [place] [address] [place] Anion gap [Moles/Vol] 11 mmol/L Normal 9-18 [facility] Comment on above: Order Comment: Speci men Type: BLOOD SPECIMENOrdering Facility: [facility] Address: [address] [place], [place] [address] Performed By: #### 2 4362-6 ####[facility] LABCLIA [id number] [place] [address] [place] Calcium [Mass/Vol] 8.5 mg/dL Normal 8.5-10.2 [facility] Comment on above: Order Comment: Speci men Type: BLOOD SPECIMENOrdering Facility: [facility] Address: [address] [place] [address] Performed By: #### 2 4362-6 ####[facility] LABCLIA [id number] [place] [address] [place] Chloride [Moles/Vol] 111 mmol/L High 97-105 [facility] Comment on above: Order Comment: Speci men Type: BLOOD SPECIMENOrdering Facility: [facility] Address: [address] [place], [place] [address] Performed By: #### 2 4362-6 ####[facility] LABCLIA [id number] [place] [address] [place] CO2 [Moles/Vol] 20 mmol/L Low 22-30 [facility] Comment on above: Order Comment: Speci men Type: BLOOD SPECIMENOrdering Facility: [facility] Address: [address] [place] [address] Performed By: #### 2 4362-6 ####[facility] LABCLIA [id number] [place] [address] [place] Creatinine [Mass/Vol] 1.19 mg/dL Normal 0.73-1.22 [facility] Comment on above: Order Comment: Speci men Type: BLOOD SPECIMENOrdering Facility: [facility] Address: [address] [place] [address] Performed By: #### 2 4362-6 ####[facility] LABIA [id number] [address] [place] ESTIMATED GLOMERULAR FILTRATION RATE 62 mL/min/1.73m??? Normal >=60 [facility] Comment on above: Order Comment: Speci men Type: BLOOD SPECIMENOrdering Facility: [facility] Address: [address] [place] [address] Result Comment: Sandra mated Glomerular Filtration Rate [...] actual GFR. Performed By: #### 2 4362-6 ####[facility] LABCLIA [id number] [place] [address] [place] Glucose [Mass/Vol] 101 mg/dL High 74-99 [facility] Comment on above: Order Comment: Speci men Type: BLOOD SPECIMENOrdering Facility: [facility] Address: [address] [place] [address] Result Comment: The [place] [employer] (ADA) provides guidance for cutoff [...] Standards of Medical Care in Diabetes 2016, [place] [employer]. Diabetes Care. 2016.39(Suppl 1). Performed By: #### 2 4362-6 ####[facility] LABIA [id number] [place] [address] [place] Phosphate [Mass/Vol] 3.3 mg/dL Normal 2.7-4.8 [facility] Comment on above: Order Comment: Speci men Type: BLOOD SPECIMENOrdering Facility: [facility] Address: [address] [place], [place] [address] Performed By: #### 2 4362-6 ####[facility] LABIA [id number] [place] [address] [place] Potassium [Moles/Vol] 3.7 mmol/L Normal 3.7-5.1 [facility] Comment on above: Order Comment: Speci men Type: BLOOD SPECIMENOrdering Facility: [facility] Address: [address] [place] [phone] Performed By: #### 2 4362-6 ####[facility] LABIA [id number] [place] [address] [place] Sodium [Moles/Vol] 142 mmol/L Normal 136-144 [facility] Comment on above: Order Comment: Speci men Type: BLOOD SPECIMENOrdering Facility: [facility] Address: [address] [place] [address] Performed By: #### 2 4362-6 ####[facility] LABCLIA [id number] [place] [address] [place] Urea nitrogen [Mass/Vol] 10 mg/dL Normal 9-24 [facility] Comment on above: Order Comment: Speci men Type: BLOOD SPECIMENOrdering Facility: [facility] Address: [address] [place] [address] Performed By: #### 2 4362-6 ####[facility] LABIA [id number] [address] [place] THERAPY NTon 11-11-2021 THERAPY NT Normal [facility] THERAPY NT Normal [facility] THERAPY NT Normal [facility] THERAPY NT Normal [facility] XR ENTERIC TUBE INJECTIONon 11-11-2021 XR ENTERIC TUBE INJECTION Normal [facility] XR MOD BARIUM SWALLOW W SPEE Temo 11-11-2021 XR MOD BARIUM SWALLOW W SPEECH Normal [facility] aPTT PPPon 11-11-2021 aPTT Coag (PPP) [Time] 28.0 s Normal 23.0-32.4 [facility] Comment on above: Order Comment: Speci men Type: BLOOD SPECIMENOrdering Facility: [facility] Address: [address] [place] [address] Performed By: #### 3 4528-0, 87861-3 ####[facility] LABCLIA [id number] [place] [address] [place] Bacteria Bld Culton 11-11-19 22 Bacteria identified Cx Nom (Bld) ORGANISM ID: 1 Staphylococcus epidermidis Probable contaminant. Susceptibility testing will not be performed. Call lab within 72 hours to initiate workup if clinically indicated. GRAM STAIN: Gram positive cocci in clusters Abnormal [facility] Comment on above: Performed By: #### 6 00-7 ####[facility] LABCLIA [id number] [address] [place] Bacteria identified Cx Nom (Bld) CULTURE, BLOOD: No growth 5 days Normal [facility] Comment on above: Performed By: #### 6 00-7 ####[facility] LABCLIA [id number] [place] [address] [place] Bacteria Spec Resp Culton Bacteria identified Respiratory culture Nom (Unsp spec) Abnormal [facility] Comment on above: Performed By: #### 3 2355-0 ####[facility] LABCLIA [id number] [place] [address] [place] CASE MGT INIT ASSESon 2021 CASE MGT INIT ASSES Normal [facility] CONSULTon 11-10-2021 CONSULT Normal [facility] CONSULT Normal [facility] CT ABD/PEL W IVCONon 022 CT ABD/PEL W IVCON Invalid Interpretation Code [facility] ED NOTEon 11-10-2021 ED NOTE HNO ID: [id number] Author: Radha Corley RN Service: Emergency Medicine Author Type: Registered Nurse Type: ED Notes Filed: 11/10/2021 12:24 AM Note Text: Pt to CT scan Normal [facility] HISTORY PHYSICALon HISTORY PHYSICAL Normal [facility] NUTRITIONon 11-10-2021 NUTRITION Normal [facility] PT panel Coag (PPP)on 2021 INR Coag (PPP) [Relative time] 1.1 {INR} Normal 0.9-1.3 [facility] Comment on above: Order Comment: Speci men Type: BLOOD SPECIMENOrdering Facility: [facility] Address: [address] [place] [address] Result Comment: Pippa min K Antagonist (VKA) Therapeutic Range: INR 2 to 3 (Target INR of 2.5)Note: For patients treated with VKA drugs, such as warfarin, the [place] [employer] 2012 Guideline recommends [...] al. Chest 2012, 141:7S-47SNishimura RA, et al. [facility] 2017, 70: 252-289 Performed By: #### 1 4979-9, 98514-9 ####[facility] LABCLIA [id number] [place] [address] [place] PT Coag (PPP) [Time] 11.4 s Normal 9.7-13.0 [facility] Comment on above: Order Comment: Speci men Type: BLOOD SPECIMENOrdering Facility: [facility] Address: [address] [place] [address] Performed By: #### 1 4979-9, 17077-4 ####[facility] LABCLIA [id number] [address] [place] THERAPY NTon 11-10-2021 THERAPY NT Normal [facility] TYPE + SCREENon 11-10-2021 ABO O Normal [facility] Comment on above: Order Comment: Speci men Type: BLOOD SPECIMENOrdering Facility: [facility] Address: [address] [place] [address] Performed By: #### T SCR ####[facility] BLOOD BANKCLIA [id number] [address] [place] HISTORICAL AB SCR STATUS Negative Normal [facility] Comment on above: Order Comment: Speci men Type: BLOOD SPECIMENOrdering Facility: [facility] Address: [address] [place], [place] [address] Performed By: #### T SCR ####[facility] BLOOD BANKCLIA [id number] [place] [address] [place] Rh Nom (Bld) Positive Normal [facility] Comment on above: Order Comment: Speci men Type: BLOOD SPECIMENOrdering Facility: [facility] Address: [address] [place] [address] Performed By: #### T SCR ####[facility] BLOOD BANKIA [id number] [address] OF [facility] TYPE AND SCREEN EXPIRATION 11/13/2021 23:59 Normal [facility] Comment on above: Order Comment: Speci men Type: BLOOD SPECIMENOrdering Facility: [facility] Address: [address] [place] [address] Performed By: #### T SCR ####[facility] BLOOD BANKIA [id number] [address] [place] Urinalysis complete panel (U )on 11-10-2021 Bacteria LM.HPF (Urine sed) [#/Area] Rare Abnormal None Seen [facility] Comment on above: Order Comment: Speci men Type: URINE SPECIMENOrdering Facility: [facility] Address: [address] [place] [address] Performed By: #### 2 4356-8 ####[facility] LABCLIA [id number] [place] [address] [place] Bilirubin Ql (U) Negative Normal Negative [facility] Comment on above: Order Comment: Speci men Type: URINE SPECIMENOrdering Facility: [facility] Address: [address] [place] [address] Performed By: #### 2 4356-8 ####[facility] LABCLIA [id number] [address] [place] Clarity (Unsp spec) Clear Normal Clear [facility] Comment on above: Order Comment: Speci men Type: URINE SPECIMENOrdering Facility: [facility] Address: [address] [place], [place] [address] Performed By: #### 2 4356-8 ####[facility] LABCLIA [id number] [place] [address] [place] Color (U) Straw Normal Yellow [facility] Comment on above: Order Comment: Speci men Type: URINE SPECIMENOrdering Facility: [facility] Address: [address] [place], [place] [address] Performed By: #### 2 4356-8 ####[facility] LABCLIA [id number] [address] [place] Glucose Test strip (U) [Mass/Vol] Negative Normal Negative [facility] Comment on above: Order Comment: Speci men Type: URINE SPECIMENOrdering Facility: [facility] Address: [address] [place] [address] Performed By: #### 2 4356-8 ####[facility] LABCLIA [id number] [place] [address] [place] Hemoglobin Ql (U) Negative Normal Negative [facility] Comment on above: Order Comment: Speci men Type: URINE SPECIMENOrdering Facility: [facility] Address: [address] [place], [place] [address] Performed By: #### 2 4356-8 ####[facility] LABCLIA [id number] [place] [address] [place] Ketones Ql (U) Negative Normal Negative [facility] Comment on above: Order Comment: Speci men Type: URINE SPECIMENOrdering Facility: [facility] Address: [address] [place], [place] [address] Performed By: #### 2 4356-8 ####[facility] LABCLIA [id number] [place] [address] [place] Leukocyte esterase Test strip Ql (U) 2+ Abnormal Negative [facility] Comment on above: Order Comment: Speci men Type: URINE SPECIMENOrdering Facility: [facility] Address: [address] [place] [address] Performed By: #### 2 4356-8 ####[facility] LABCLIA [id number] [place] [address] [place] Nitrite Ql (U) Negative Normal Negative [facility] Comment on above: Order Comment: Speci men Type: URINE SPECIMENOrdering Facility: [facility] Address: [address] [place] [address] Performed By: #### 2 4356-8 ####[facility] LABIA [id number] [place] [address] [place] pH (U) 6.0 [pH] Normal 5.0-8.0 [facility] Comment on above: Order Comment: Speci men Type: URINE SPECIMENOrdering Facility: [facility] Address: [address] [place] [address] Performed By: #### 2 4356-8 ####[facility] LABIA [id number] [place] [address] [place] [facility] Protein (U) [Mass/Vol] 1+ Abnormal Negative [facility] Comment on above: Order Comment: Speci men Type: URINE SPECIMENOrdering Facility: [facility] Address: [address] [place] [address] Performed By: #### 2 4356-8 ####[facility] LABIA [id number] [place] [address] [place] RBC LM.HPF (Urine sed) [#/Area] 0-3 /HPF Normal 0-3 /HPF [facility] Comment on above: Order Comment: Speci men Type: URINE SPECIMENOrdering Facility: [facility] Address: [address] [place], [place] [address] Performed By: #### 2 4356-8 ####[facility] LABIA [id number] [place] [address] [place] Specific gravity (U) [Rel density] 1.031 High 1.005-1.030 [facility] Comment on above: Order Comment: Speci men Type: URINE SPECIMENOrdering Facility: [facility] Address: [address] [place] [address] Performed By: #### 2 4356-8 ####[facility] LABIA [id number] [place] [address] [place] Urobilinogen Ql (U) Negative Normal Negative [facility] Comment on above: Order Comment: Speci men Type: URINE SPECIMENOrdering Facility: [facility] Address: [address] [place] [address] Performed By: #### 2 4356-8 ####[facility] [id number] [place] [address] [place] WBC LM.HPF (Urine sed) [#/Area] 11-25 /HPF Abnormal 0-5 /HPF [facility] Comment on above: Order Comment: Speci men Type: URINE SPECIMENOrdering Facility: [facility] Address: [address] [place] [address] Performed By: #### 2 4356-8 ####[facility] LABIA [id number] [place] [address] [place] Yeast.budding LM.HPF (Urine sed) [#/Area] Few Abnormal None Seen [facility] Comment on above: Order Comment: Speci men Type: URINE SPECIMENOrdering Facility: [facility] Address: [address] [place], [place] [address] Performed By: #### 2 4356-8 ####[facility] LABIA [id number] [place] [address] [place] XR CHEST 2V FRONTAL/LATon XR CHEST 2V FRONTAL/LAT Normal [facility] aPTT PPPon 11-10-2021 aPTT Coag (PPP) [Time] 28.8 s Normal 23.0-32.4 [facility] Comment on above: Order Comment: Speci men Type: BLOOD SPECIMENOrdering Facility: [facility] Address: [address] [place] [address] Performed By: #### 1 4979-9, 77797-4 ####[facility] LABCLIA [id number] [place] [address] [place] CBC W Auto Differential pane l (Bld)on 11-09-2021 Basophils (Bld) [#/Vol] 0.09 10*3/uL Normal <0.11 [facility] Comment on above: Order Comment: Speci men Type: BLOOD SPECIMENOrdering Facility: [facility] Address: [address] [place] [address] Performed By: #### 5 7021-8, 05599-3 ####[facility] LABIA [id number] [place] [address] [place] Basophils/100 WBC (Bld) 0.6 % Normal [facility] Comment on above: Order Comment: Speci men Type: BLOOD SPECIMENOrdering Facility: [facility] Address: [address] [place] [address] Performed By: #### 5 7021-8, 76722-3 ####[facility] LABCLIA [id number] [address] [place] Differential cell count method Nom (Bld) Auto Normal [facility] Comment on above: Order Comment: Speci men Type: BLOOD SPECIMENOrdering Facility: [facility] Address: [address] [place] [address] Performed By: #### 5 7021-8, 41470-0 ####[facility] LABCLIA [id number] [place] [address] [place] Eosinophils (Bld) [#/Vol] 0.45 10*3/uL Normal <0.46 [facility] Comment on above: Order Comment: Speci men Type: BLOOD SPECIMENOrdering Facility: [facility] Address: [address] [place] [address] Performed By: #### 5 7021-8, 41788-4 ####[facility] LABCLIA [id number] [address] [place] Eosinophils/100 WBC (Bld) 3.2 % Normal [facility] Comment on above: Order Comment: Speci men Type: BLOOD SPECIMENOrdering Facility: [facility] Address: [address] [place] [address] Performed By: #### 5 7021-8, 26246-1 ####[facility] LABCLIA [id number] [address] STATES OF [facility] Erythrocyte distribution width (RBC) [Ratio] 13.5 % Normal 11.5-15.0 [facility] Comment on above: Order Comment: Speci men Type: BLOOD SPECIMENOrdering Facility: [facility] Address: [address] [place] [address] Performed By: #### 5 7021-8, 36706-1 ####[facility] LABCLIA [id number] [place] [address] [place] Hematocrit (Bld) [Volume fraction] 33.5 % Low 39.0-51.0 [facility] Comment on above: Order Comment: Speci men Type: BLOOD SPECIMENOrdering Facility: [facility] Address: [address] [place] [address] Performed By: #### 5 7021-8, 03988-4 ####[facility] LABCLIA [id number] [place] [address] [place] Hemoglobin (Bld) [Mass/Vol] 10.7 g/dL Low 13.0-17.0 [facility] Comment on above: Order Comment: Speci men Type: BLOOD SPECIMENOrdering Facility: [facility] Address: [address] [place], [place] [address] Performed By: #### 5 7021-8, 20266-2 ####[facility] LABCLIA [id number] [address] [place] IMMATURE GRAN % 0.8 % Normal [facility] Comment on above: Order Comment: Speci men Type: BLOOD SPECIMENOrdering Facility: [facility] Address: [address] [place], [place] [address] Performed By: #### 5 7021-8, 85998-9 ####[facility] LABCLIA [id number] [place] [address] [place] IMMATURE GRAN ABS 0.11 k/uL High <0.10 [facility] Comment on above: Order Comment: Speci men Type: BLOOD SPECIMENOrdering Facility: [facility] Address: [address] [place], [place] [address] Performed By: #### 5 7021-8, 05692-8 ####[facility] LABCLIA [id number] [place] [address] [place] Lymphocytes (Bld) [#/Vol] 1.73 10*3/uL Normal 1.00-4.00 [facility] Comment on above: Order Comment: Speci men Type: BLOOD SPECIMENOrdering Facility: [facility] Address: [address] [place], [place] [address] Performed By: #### 5 7021-8, 24054-7 ####[facility] LABCLIA [id number] [address] [place] Lymphocytes/100 WBC (Bld) 12.1 % Normal [facility] Comment on above: Order Comment: Speci men Type: BLOOD SPECIMENOrdering Facility: [facility] Address: [address] [place] [address] Performed By: #### 5 7021-8, 22704-4 ####[facility] LABCLIA [id number] [place] [address] [place] MCH (RBC) [Entitic mass] 30.1 pg Normal 26.0-34.0 [facility] Comment on above: Order Comment: Speci men Type: BLOOD SPECIMENOrdering Facility: [facility] Address: [address] [place], [place] [address] Performed By: #### 5 7021-8, 32398-1 ####[facility] LABIA [id number] [address] [place] MCHC (RBC) [Mass/Vol] 31.9 g/dL Normal 30.5-36.0 [facility] Comment on above: Order Comment: Speci men Type: BLOOD SPECIMENOrdering Facility: [facility] Address: [address] [place], [place] [address] Performed By: #### 5 7021-8, 24739-6 ####[facility] LABIA [id number] [place] [address] [place] MCV (RBC) [Entitic vol] 94.4 fL Normal 80.0-100.0 [facility] Comment on above: Order Comment: Speci men Type: BLOOD SPECIMENOrdering Facility: [facility] Address: [address] [place] [address] Performed By: #### 5 7021-8, 85435-2 ####[facility] LABIA [id number] [place] [address] [place] Monocytes (Bld) [#/Vol] 0.66 10*3/uL Normal <0.87 [facility] Comment on above: Order Comment: Speci men Type: BLOOD SPECIMENOrdering Facility: [facility] Address: [address] [place], [place] [address] Performed By: #### 5 7021-8, 38090-4 ####[facility] LABIA [id number] [place] [address] [place] Monocytes/100 WBC (Bld) 4.6 % Normal [facility] Comment on above: Order Comment: Speci men Type: BLOOD SPECIMENOrdering Facility: [facility] Address: [address] [place], [place] [address] Performed By: #### 5 7021-8, 02722-7 ####[facility] LABIA [id number] [place] [address] [place] Neutrophils (Bld) [#/Vol] 11.24 10*3/uL High 1.45-7.50 [facility] Comment on above: Order Comment: Speci men Type: BLOOD SPECIMENOrdering Facility: [facility] Address: [address] [place], [place] [address] Performed By: #### 5 7021-8, 57899-6 ####[facility] LABIA [id number] [place] [address] [place] Neutrophils/100 WBC (Bld) 78.7 % Normal [facility] Comment on above: Order Comment: Speci men Type: BLOOD SPECIMENOrdering Facility: [facility] Address: [address] [place] [address] Performed By: #### 5 7021-8, 87783-5 ####[facility] LABIA [id number] [place] [address] [place] Nucleated RBC (Bld) [#/Vol] 10*3/uL Normal <0.01 [facility] Comment on above: Order Comment: Speci men Type: BLOOD SPECIMENOrdering Facility: [facility] Address: [address] [place] [address] Performed By: #### 5 7021-8, 74300-1 ####[facility] LABCLIA [id number] [place] [address] [place] Nucleated RBC/100 WBC (Bld) [Ratio] 0.0 /100 WBC Normal [facility] Comment on above: Order Comment: Speci men Type: BLOOD SPECIMENOrdering Facility: [facility] Address: [address] [place] [address] Performed By: #### 5 7021-8, 33637-4 ####[facility] LABCLIA [id number] [place] [address] [place] Platelet mean volume (Bld) [Entitic vol] 9.2 fL Normal 9.0-12.7 [facility] Comment on above: Order Comment: Speci men Type: BLOOD SPECIMENOrdering Facility: [facility] Address: [address] [place] [address] Performed By: #### 5 7021-8, 80715-7 ####[facility] LABCLIA [id number] [place] [address] [place] Platelets (Bld) [#/Vol] 432 10*3/uL High 150-400 [facility] Comment on above: Order Comment: Speci men Type: BLOOD SPECIMENOrdering Facility: [facility] Address: [address] [place], [place] [address] Performed By: #### 5 7021-8, 77860-1 ####[facility] LABCLIA [id number] [place] [address] [place] RBC (Bld) [#/Vol] 3.55 10*6/uL Low 4.20-6.00 [facility] Comment on above: Order Comment: Speci men Type: BLOOD SPECIMENOrdering Facility: [facility] Address: [address] [place] [address] Performed By: #### 5 7021-8, 75401-0 ####[facility] LABCLIA [id number] [address] [address] [place] WBC (Bld) [#/Vol] 14.28 10*3/uL High 3.70-11.00 [facility] Comment on above: Order Comment: Speci men Type: BLOOD SPECIMENOrdering Facility: [facility] Address: [address] [place] [address] Performed By: #### 5 7021-8, 66283-3 ####[facility] LABCLIA [id number] [place] [id number] [place] Comprehensive metabolic 2000 panelon 11-09-2021 Albumin [Mass/Vol] 3.4 g/dL Low 3.9-4.9 [facility] Comment on above: Order Comment: Speci men Type: BLOOD SPECIMENOrdering Facility: [facility] Address: [address] [place] [address] Performed By: #### 2 4323-8, 3040-3, 05624-3, 13765-8, 3016-3 ####[facility] LABCLIA [id number] [place] [address] [place] ALP [Catalytic activity/Vol] 92 U/L Normal 38-113 [facility] Comment on above: Order Comment: Speci men Type: BLOOD SPECIMENOrdering Facility: [facility] Address: [address] [place], [place] [address] Performed By: #### 2 4323-8, 3040-3, 52766-9, 54464-2, 3016-3 ####[facility] LABCLIA [id number] [place] [id number] [place] ALT [Catalytic activity/Vol] 6 U/L Low 10-54 [facility] Comment on above: Order Comment: Speci men Type: BLOOD SPECIMENOrdering Facility: [facility] Address: [address] [place], [place] [address] Performed By: #### 2 4323-8, 3040-3, 58251-5, 71671-7, 3016-3 ####[facility] LABCLIA [id number] [place] [id number] [place] Anion gap [Moles/Vol] 12 mmol/L Normal 9-18 [facility] Comment on above: Order Comment: Speci men Type: BLOOD SPECIMENOrdering Facility: [facility] Address: [address] [place] [address] Performed By: #### 2 4323-8, 3040-3, 06563-6, 20625-6, 3016-3 ####[facility] LABIA [id number] [place] [address] [place] AST [Catalytic activity/Vol] 8 U/L Low 14-40 [facility] Comment on above: Order Comment: Speci men Type: BLOOD SPECIMENOrdering Facility: [facility] Address: [address] [place] [address] Performed By: #### 2 4323-8, 3040-3, 21082-9, 86089-7, 6-3 ####[facility] LABIA [id number] [place] [address] [place] Bilirubin [Mass/Vol] 0.2 mg/dL Normal 0.2-1.3 [facility] Comment on above: Order Comment: Speci men Type: BLOOD SPECIMENOrdering Facility: [facility] Address: [address] [place] [address] Performed By: #### 2 4323-8, 3040-3, 27773-1, 67855-2, 3016-3 ####[facility] LABCLIA [id number] [place] [address] [place] Calcium [Mass/Vol] 9.7 mg/dL Normal 8.5-10.2 [facility] Comment on above: Order Comment: Speci men Type: BLOOD SPECIMENOrdering Facility: [facility] Address: [address] [place] [address] Performed By: #### 2 4323-8, 3040-3, 74799-3, 30483-7, 3015-3 ####[facility] LABCLIA [id number] [facility] CENTERLID AVENUEEAST LOS [facility]ITALK [place] [id number] [place] Chloride [Moles/Vol] 107 mmol/L High 97-105 [facility] Comment on above: Order Comment: Speci men Type: BLOOD SPECIMENOrdering Facility: [facility] Address: [address] [place], [place] [address] Performed By: #### 2 4323-8, 3040-3, 15567-7, 20148-2, 6-3 ####[facility] LABCLIA [id number] [facility] [place] [address] [place] CO2 [Moles/Vol] 22 mmol/L Normal 22-30 [facility] Comment on above: Order Comment: Speci men Type: BLOOD SPECIMENOrdering Facility: [facility] Address: [address] [place], [place] [address] Performed By: #### 2 4323-8, 3040-3, 06273-6, 12384-2, 6-3 ####[facility] LABCLIA [id number] [facility] [place] [address] [place] Creatinine [Mass/Vol] 1.13 mg/dL Normal 0.73-1.22 [facility] Comment on above: Order Comment: Speci men Type: BLOOD SPECIMENOrdering Facility: [facility] Address: [address] [place], [place] [address] Performed By: #### 2 4323-8, 3040-3, 50831-4, 79302-0, 6-3 ####[facility] LABCLIA [id number] [facility] [place] [id number] [place] ESTIMATED GLOMERULAR FILTRATION RATE 66 mL/min/1.73m??? Normal >=60 [facility] Comment on above: Order Comment: Misbah valerie Type: BLOOD SPECIMENOrdering Facility: [facility] Address: [address] [place] [address] Result Comment: Sandra mated Glomerular Filtration Rate [...] GFR. Performed By: #### 2 4323-8, 3040-3, 35199-5, 07593-6, 6-3 ####[facility] LABCLIA [id number] [address] [address] [place] Glucose [Mass/Vol] 130 mg/dL High 74-99 [facility] Comment on above: Order Comment: Misbah padilla Type: BLOOD SPECIMENOrdering Facility: [facility] Address: [address] [place] [address] Result Comment: The [place] Diabetes Association (ADA) provides guidance for cutoff [...] Standards of Medical Care in Diabetes 2016, [place] Diabetes Association. Diabetes Care. 2016.39(Suppl 1). Performed By: #### 2 4323-8, 3040-3, 80403-6, 60418-4, 6-3 ####[facility] LABCLIA [id number] [address] [address] [place] Potassium [Moles/Vol] 4.0 mmol/L Normal 3.7-5.1 [facility] Comment on above: Order Comment: Speci men Type: BLOOD SPECIMENOrdering Facility: [facility] Address: [address] [place] [address] Performed By: #### 2 4323-8, 3040-3, 48160-4, 90646-6, 3016-3 ####[facility] LABCLIA [id number] [place] [address] [place] Protein [Mass/Vol] 6.5 g/dL Normal 6.3-8.0 [facility] Comment on above: Order Comment: Speci men Type: BLOOD SPECIMENOrdering Facility: [facility] Address: [address] [place] [address] Performed By: #### 2 4323-8, 3040-3, 42112-8, 98241-5, 3016-3 ####[facility] LABCLIA [id number] [place] [address] [place] Sodium [Moles/Vol] 141 mmol/L Normal 136-144 [facility] Comment on above: Order Comment: Speci men Type: BLOOD SPECIMENOrdering Facility: [facility] Address: [address] [place] [address] Performed By: #### 2 4323-8, 3040-3, 81602-3, 97340-0, 3016-3 ####[facility] LABCLIA [id number] [place] [address] [place] Urea nitrogen [Mass/Vol] 13 mg/dL Normal 9-24 [facility] Comment on above: Order Comment: Speci men Type: BLOOD SPECIMENOrdering Facility: [facility] Address: [address] [place] [address] Performed By: #### 2 4323-8, 3040-3, 15443-3, 63411-4, 3016-3 ####[facility] LABCLIA [id number] [place] [id number] [place] ED NOTEon 11-09-2021 ED NOTE Normal [facility] ED PROV NOTEon 11-09-2021 ED PROV NOTE Normal [facility] HbA1c (Bld)on 11-09-2021 Average glucose Estimated from glycated hemoglobin (Bld) [Mass/Vol] 128 mg/dL Normal [facility] Comment on above: Order Comment: Speci men Type: BLOOD SPECIMENOrdering Facility: [facility] Address: [address] [place] [address] Result Comment: eAG: (Estimated average glucose) is a calculated value from HgbA1c and is sales representative education courses of the average blood glucose level in the last 2-3 month period. Performed By: #### 5 7021-8, 79760-2 ####[facility] LABCLIA [id number] [address] STATES OF [facility] HbA1c (Bld) [Mass fraction] 6.1 % High 4.3-5.6 [facility] Comment on above: Order Comment: Misbah padilla Type: BLOOD SPECIMENOrdering Facility: [facility] Address: [address] [place] [address] Result Comment: Amer [place] Diabetes Association guidelines indicate that patients with HgbA1c in the range 5.7-6.4% are at increased risk for development of diabetes, and intervention by lifestyle modification may be beneficial. HgbA1c greater or equal to 6.5% is considered diagnostic of diabetes. Performed By: #### 5 7021-8, 63650-4 ####[facility] LABCLIA [id number] [address] [place] Iron and Iron binding capaci ty panelon 11-09-2021 Iron [Mass/Vol] 44 ug/dL Normal 41-186 [facility] Comment on above: Order Comment: Lucilai men Type: BLOOD SPECIMENOrdering Facility: [facility] Address: [address] [place] [address] Performed By: #### 2 4323-8, 3040-3, 82680-4, 51331-1, 3016-3 ####[facility] LABCLIA [id number] [place] [id number] [place] Iron binding capacity [Mass/Vol] 139 ug/dL Low 232-386 [facility] Comment on above: Order Comment: Speci men Type: BLOOD SPECIMENOrdering Facility: [facility] Address: [address] [place] [address] Performed By: #### 2 4323-8, 3040-3, 95344-7, 16967-1, 3016-3 ####[facility] LABIA [id number] [place] [address] [place] Iron/TIBC [Molar ratio] 31.7 % Normal 15.0-57.0 [facility] Comment on above: Order Comment: Speci men Type: BLOOD SPECIMENOrdering Facility: [facility] Address: [address] [place] [address] Performed By: #### 2 4323-8, 3040-3, 02761-8, 11950-0, 3016-3 ####[facility] LABIA [id number] [place] [address] [place] Lipase SerPl-cCncon 11-10-19 Lipase [Catalytic activity/Vol] 13 U/L Low 16-61 [facility] Comment on above: Order Comment: Speci men Type: BLOOD SPECIMENOrdering Facility: [facility] Address: [address] [place] [address] Performed By: #### 2 4323-8, 3040-3, 70313-1, 41522-8, 3016-3 ####[facility] LABIA [id number] [place] [address] [place] Magnesium SerPl-mCncon 11-09 Magnesium [Mass/Vol] 2.0 mg/dL Normal 1.7-2.3 [facility] Comment on above: Order Comment: Speci men Type: BLOOD SPECIMENOrdering Facility: [facility] Address: [address] [place] [address] Performed By: #### 2 4323-8, 3040-3, 56786-6, 48584-3, 3016-3 ####[facility] LABIA [id number] [place] [address] [place] SARS-CoV-2 RNA Resp Ql SHELLY+p robeon 11-09-2021 SARS-CoV-2 (COVID-19) RNA SHELLY+probe Ql (Resp) COVID 19 RESULT: SARS-CoV-2 (Agent of COVID-19) Not Detected by RT-PCR or equivalent method. This test has been authorized by FDA under an Emergency Use Authorization (EUA). Normal [facility] Comment on above: Performed By: #### 9 4500-6 ####[facility] [id number] [place] [address] [place] TROPONIN Ton 11-09-2021 Troponin T.cardiac [Mass/Vol] 0.011 ug/L Normal 0.000-0.029 [facility] Comment on above: Order Comment: Speci men Type: BLOOD SPECIMENOrdering Facility: [facility] Address: [address] [place] [address] Performed By: #### T NT ####[facility] [id number] [place] [address] [place] TSH SerPl-aCncon 11-09-2021 TSH Qn 0.548 m[IU]/L Normal 0.270-4.200 [facility] Comment on above: Order Comment: Speci men Type: BLOOD SPECIMENOrdering Facility: [facility] Address: [address] [place] [address] Performed By: #### 2 4323-8, 3040-3, 62646-6, 79051-8, 3016-3 ####[facility] LABIA [id number] [place] [id number] [place] Echocardiogramon 11-04-2021 Echocardiography [facility] anayeli [address] [place] [address], [address], [place] [address] TRANSTHORACIC ECHOCARDIOGRAM REPORT Patient Name: FRANKI Maki Physician: [id number] Glenn HERNANDEZ MD Study Date: 11/04/2021 Referring Physician: [id number] LAURO COLLINS MRN/PID: [id number] PCP: Micheal Gutiérrez Accession/Order#: [id number] Department Location: [facility] Date of : 1940 Fellow: Gender: M Nurse: Admit Date: Pcu Rn: Zeenat Trejo RDCS, T Height: 180.34 cm CC Report to: Weight: 68.04 kg Study Type: Echocardiogram BSA: 1.87 m2 Blood Pressure: 142 /70 mmHg Diagnosis/ICD: R07.89-Other chest pain; 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-Ischemic cardiomyopathy Indication: Hyperlipidemia, CAD, SD and PTCA-06/2021, CHF, COPD, Tobacco Abuse, Peripheral Vascular Disease, Right SFA Stent Procedure/CPT: Echo Complete w Full Doppler-[id number] Study Detail: The following Echo studies were [...] 1.3 m/s (0.6-0.9m/s) PV Max P.7 mmHg [id number] Glenn Kapoor MD Electronically signed on 11/05/2021 at 9:06:54 AM Final Normal [facility] VASC LAB PVR W/O EXERCISEon 11-04-2021 VASC LAB PVR W/O EXERCISE [address], [address] [place] [address] Vascular Lab Report PVR With Out Exercise Patient Name: FRANKI Glynn Physician: [id number] Saige Bassett MD, [facility] Study Date: 11/04/2021 Referring [id number] LAURO COLLINS Physician: MRN/PID: [id number] PCP: Micheal Gutiérrez Accession/Order#: [id number] CC Report to: Date of : 1940 Technologist: Zeenat Trejo RDCS [facility] Gender: M Technologist 2: Admission Status: Outpatient Location Performed: [facility] Diagnosis/ICD: I73.9-Peripheral vascular disease, unspecified Indication: Hyperlipidemia, CAD, SD and PTCA-06/2021, Chest Discomfort, CHF, COPD, Tobacco Abuse, Right SFA Stent Procedure/CPT: 18817 Peripheral artery PVR (multi segmental pressure)-47320 CONCLUSIONS: Right Lower PVR: There is evidence [...] Left Brachial Pressure 138 mmHg 132 mmHg [id number] Saige Bassett MD, FACC Final Normal [facility] VAS LAB PVR W/O EXERCISE -[facility]-Sandu marika 250 DO Work Phone: GI PANEL (PCR)on 10-28-2021 Adenovirus F 40/41 Not detected Normal NOT DETECTED [facility] Comment on above: Performed By: #### G IPANEL ####[facility] Qwefixrvzq8[address] [place], [place] [address]Dr. Villa Yanes Astrovirus Not detected Normal NOT DETECTED [facility] Comment on above: Performed By: #### G IPANEL ####[facility] Iumvlhnjcr2917[address] [place], [place] [address]Dr. Villa Yanes C. Diff toxin A/B Not detected Normal NOT DETECTED [facility] Comment on above: Performed By: #### G IPANEL ####[facility] Ztdqmpdhjh0229[address] [place], [place] [address]Dr. Villa Yanes Campylobacter Not detected Normal NOT DETECTED [facility] Comment on above: Performed By: #### G IPANEL ####[facility] Ticyaxqhqu[address] [place], [place] [address]Dr. Villa Yanes Cryptosporidium Not detected Normal NOT DETECTED [facility] Comment on above: Performed By: #### G IPANEL ####[facility] Glgtfkmtuz717[address] [place], [place] [address]Dr. Villa Yanes Cyclos. Cayetanensis Not detected Normal NOT DETECTED [facility] Comment on above: Performed By: #### G IPANEL ####[facility] Tjycgplejp4894[address] [place], [place] [address]Dr. karen Yanes E. Coli O157 Not Applicable Normal Not Applicable [facility] Comment on above: Performed By: #### G IPANEL ####[facility] Byzlmpxsef4234[address] [place], [place] [address]Dr. Brooklynkaren Yanes E. histolytica Not detected Normal NOT DETECTED [facility] Comment on above: Performed By: #### G IPANEL ####[facility] Offwccyzki285[address] [place], [place] [address]Dr. [facility] EAEC Not detected Normal NOT DETECTED [facility] Comment on above: Performed By: #### G IPANEL ####[facility] Ffhyyjltcd86[address] [place], [place] [address]Dr. [facility] EI[facility] Not detected Normal NOT DETECTED [facility] Comment on above: Performed By: #### G IPANEL ####[facility] Lqsuienxwq9474[address] [place], [place] [address]Dr. Brooklynkaren [facility] EPEC Not detected Normal NOT DETECTED [facility] Comment on above: Performed By: #### G IPANEL ####[facility] Lccsuqyxku985[address] [place], [place] [address]Dr. karen Yanes ETEC Not detected Normal NOT DETECTED [facility] Comment on above: Performed By: #### G IPANEL ####[facility] Hgntglmpyh7856[address] [place], [place] [address]Dr. Villa Yanes G. Lamblia Not detected Normal NOT DETECTED [facility] Comment on above: Performed By: #### G IPANEL ####[facility] Zymziknbmw800[address] [place], [place] [address]Dr. Villa Yanes GIPANEL CONTROLS PASSED Normal [facility] Comment on above: Performed By: #### G IPANEL ####[facility] Ghscnwnkai85232[address] [place], [place] [address]Dr. Villa Yanes GIPNL MASSIMO HEADER GI PANEL BACTERIA Normal T [facility] Comment on above: Performed By: #### G IPANEL ####[facility] Hnrmsfdfww5489[address] [place], [place] [address]Dr. Villa Yanes [facility] GI PANEL DIARRHEAGEN IC E.COLI / SHIGELLA Normal [facility] Comment on above: Performed By: #### G IPANEL ####[facility] Cjawtuqjhl136[address] [place], [place] [address]Dr. Villa Yanes GIPFORMERLY [facility] INFO SEE BELOW Normal [facility] Comment on above: Result Comment: EAEC - Enteroaggregative E. Coli EPEC- Enteropathogenic E. Coli ETEC- Enterotoxigenic E. Coli lt/st STEC- Shigella-like toxin-producing E. Coli stx1/stx2 EIEC- Shigella/Enteroinvasive E. Coli Performed By: #### G IPANEL ####[facility] Izbfkjqktk5770[address] [place], [place] [address]Dr. Villa Yanes GIPNLHD PARASITES GI PANEL PARASITES Normal [facility] Comment on above: Performed By: #### G IPANEL ####[facility] Oijpqqxiwe7854[address] [place], [place] [address]Dr. Villa Yanes GIPFORMERLY [facility] VIRUS GI PANEL VIRUSES Normal [facility] Comment on above: Performed By: #### G IPANEL ####[facility] Ymnxlmotyz2006[address] [place], [place] [address]Dr. Villa Yanes Norovirus GI/GII Not detected Normal NOT DETECTED [facility] Comment on above: Performed By: #### G IPANEL ####[facility] Dlozszwuno030[address] [place], [place] [address]Dr. Villa Yanes P. Shigelloides Not detected Normal NOT DETECTED [facility] Comment on above: Performed By: #### G IPANEL ####[facility] Bprezmuiny103[address] [place], [place] [address]Dr. Villa Yanes Rotavirus A Not detected Normal NOT DETECTED [facility] Comment on above: Performed By: #### G IPANEL ####[facility] Bzyyizrbhb9780[address] [place], [place] [address]Dr. Villa Yanes Salmonella Not detected Normal NOT DETECTED [facility] Comment on above: Performed By: #### G IPANEL ####[facility] Jzdxasabbi[address] [place], [place] [address]Dr. Villa Yanes Sapovirus Not detected Normal NOT DETECTED [facility] Comment on above: Performed By: #### G IPANEL ####[facility] Yaexurhntq664[address] [place], [place] [address]Dr. Villa Yanes STEC Not detected Normal NOT DETECTED [facility] Comment on above: Performed By: #### G IPANEL ####[facility] Krzpkpdmrs985[address] [place], [place] [address]Dr. Villa Yanes Vibrio Not detected Normal NOT DETECTED [facility] Comment on above: Performed By: #### G IPANEL ####[facility] Oauoqvqngw7050[address] [place], [place] [address]Dr. Villa Yanes Vibrio Cholera Not detected Normal NOT DETECTED [facility] Comment on above: Performed By: #### G IPANEL ####[facility] Ultmhiwcea9230[address] [place], [place] [address]Dr. Villa Yanes Y. Enterocolitica Not detected Normal NOT DETECTED [facility] Comment on above: Performed By: #### G IPANEL ####[facility] Bjeztlvcol7417[address] [place], [place] [address]Dr. Villa Joaquín BNPon 10-13-2021 Natriuretic peptide B (Bld) [Mass/Vol] 2844.0 pg/mL Critically high <=1,800.0 [facility] Comment on above: Result Comment: Test Repeated Critical Value Verified Performed By: #### C MP, BNP ####[facility] Nnwlnupapu1666[address] [place], [place] [address]Dr. Brooklynkaren Yanes CBC AUTO DIFFon 10-13-2021 BASO # 0.1 103/ul Normal 0.0-0.1 [facility] Comment on above: Performed By: #### C BC ####[facility] Jmayomxshu6656[address] [place], [place] [address]Dr. Villa Yanes Basophils/100 WBC (Bld) 0.8 % Normal 0.2-2.0 [facility] Comment on above: Performed By: #### C BC ####[facility] Mzjaqhgucm9490[address] [place], [place] [address]Dr. Villa Yanes EO # 0.9 103/ul Critically high 0.0-0.7 [facility] Comment on above: Performed By: #### C BC ####[facility] Xqsnbcpdjk36[address] [place] [address]Dr. Villa Yanes Eosinophils/100 WBC (Bld) 7.8 % Critically high 0.9-7.0 [facility] Comment on above: Performed By: #### C BC ####[facility] Cyogrrbpuo1748[address] [place], [place] [address]Dr. Villa Yanes Erythrocyte distribution width (RBC) [Ratio] 13.1 % Normal 11.0-15.0 [facility] Comment on above: Performed By: #### C BC ####[facility] Bcqjiqbfri3636[address] [place], [place] [address]Dr. Villa Yanes Hematocrit (Bld) [Volume fraction] 29.3 % Critically low 42.0-54.0 [facility] Comment on above: Performed By: #### C BC ####[facility] Ebaeplngva5420[address] [place], [place] [address]Dr. Villa Yanes Hemoglobin (Bld) [Mass/Vol] 9.3 g/dL Critically low 14.0-18.0 [facility] Comment on above: Performed By: #### C BC ####[facility] Vfzployffu6378[address] [place], [place] [address]Dr. Villa Joaquín IG # 0.18 10e3/ul Critically high 0.00-0.03 [facility] Comment on above: Performed By: #### C BC ####[facility] Tkequdxutr9877[address] [place], [place] [address]Dr. Villa Joaquín IG % 1.5 % Critically high 0.0-0.5 [facility] Comment on above: Performed By: #### C BC ####[facility] Umioidcavf287[address] [place], [place] [address]Dr. Brooklynkaren Joaquín LYMPH # 1.7 103/ul Normal 1.2-3.8 [facility] Comment on above: Performed By: #### C BC ####[facility] Rjlhemgrjm67[address] [place], [place] [address]Dr. Villa Yanes Lymphocytes/100 WBC (Bld) 14.7 % Critically low 20.5-60.0 [facility] Comment on above: Performed By: #### C BC ####[facility] Ngivhzewhy[address] [place] [address]DrBrenden Yanes MANUAL DIFF REQ NO Normal [facility] Comment on above: Performed By: #### C BC ####[facility] Jkxwkcydej0421 [place] [address]Dr. Villa Yanes MCH (RBC) [Entitic mass] 30.1 pg Normal 25.9-34.0 [facility] Comment on above: Performed By: #### C BC ####[facility] Ttdhwxjamz9621 [place] [address]Dr. Villa Yanes MCHC (RBC) [Mass/Vol] 31.7 g/dL Normal 29.9-35.2 [facility] Comment on above: Performed By: #### C BC ####[facility] Imtzthtvga3205[address] [place], [place] [address]DrBrenden Yanes MCV (RBC) [Entitic vol] 94.8 fL Critically high 80.0-94.0 [facility] Comment on above: Performed By: #### C BC ####[facility] Ngqeaxxrto961[address] [place], [place] [address]Dr. Villa Yanes MONO # 0.7 103/ul Normal 0.3-0.8 [facility] Comment on above: Performed By: #### C BC ####[facility] Ixsacqfsdo6732[address] [place], [place] [address]DrBrenden Yanes Monocytes/100 WBC (Bld) 6.1 % Normal 1.7-12.0 [facility] Comment on above: Performed By: #### C BC ####[facility] Pdojlatqox3559[address] [place], [place] [address]DrBrenden Yanes NEUT # 8.1 103/ul Critically high 1.4-6.5 [facility] Comment on above: Performed By: #### C BC ####[facility] Azetfrppad1018[address] [place], [place] [address]DrBrenden Yanes Neutrophils/100 WBC (Bld) 69.1 % Normal 43.0-75.0 [facility] Comment on above: Performed By: #### C BC ####[facility] Hiwvxxlxea5375 [place] [address]Dr. Villa Yanes Platelet mean volume (Bld) [Entitic vol] 9.7 fL Normal 9.5-13.5 [facility] Comment on above: Performed By: #### C BC ####[facility] Xjgxysyfit3833 [place] [address]Dr. Villa Yanes PLT 408 103/ul Normal 150-450 [facility] Comment on above: Performed By: #### C BC ####[facility] Lmbrbwlyeu8888 [place] [address]Dr. Villa Yanes RBC 3.09 106/ul Critically low 4.70-6.10 [facility] Comment on above: Performed By: #### C BC ####[facility] Xkahefkifk3805 [place] [address]Dr. Villa Yanes WBC 11.7 103/ul Critically high 4.0-11.0 [facility] Comment on above: Performed By: #### C BC ####[facility] Qtvnrndfrk1599[address] [place], [place] [address]Dr. Villa Yanes POINT OF CARE GLUCOSEon 09-22 Glucose [Mass/Vol] 216 mg/dL Critically high 74-106 [facility] Comment on above: Performed By: #### P OCGLUC ####[facility] Unhwpayaeb[address] [place] [address]Dr. Villa Yanes Glucose [Mass/Vol] 217 mg/dL Critically high 74-106 [facility] Comment on above: Performed By: #### P OCGLUC ####[facility] Diennjitgp22[address] [place], [place] [address]DrBrenden Villa Yanes PROF 14(COMP METB)on 022 Albumin [Mass/Vol] 2.0 g/dL Critically low 3.4-5.0 [facility] Comment on above: Performed By: #### C MP, BNP ####[facility] Wgbimufnbx3218 [place] [id number]. Villa Yanes Albumin/Globulin [Mass ratio] 0.5 {ratio} Normal [facility] Comment on above: Performed By: #### C MP, BNP ####[facility] Diqyoykhgv8749 [place] [id number]. Villa Joaquín ALP [Catalytic activity/Vol] 122 U/L Critically high 46-116 [facility] Comment on above: Performed By: #### C MP, BNP ####[facility] Mjmohiehte0240 [place] [phone]. Villa Joaquín ALT [Catalytic activity/Vol] 12 U/L Critically low 16-63 [facility] Comment on above: Performed By: #### C MP, BNP ####[facility] Vtzdafckne9[address] [place] [address]Dr. Villa Yanes Anion gap [Moles/Vol] 11.6 mmol/L Normal [facility] Comment on above: Performed By: #### C MP, BNP ####[facility] Goesgfofzq9927 [place] [address]Dr. Brooklynkaren Yanes AST [Catalytic activity/Vol] 7 U/L Critically low 15-37 [facility] Comment on above: Performed By: #### C MP, BNP ####[facility] Xaewenpivl3175 [place] [address]Dr. Villa Yanes Bilirubin [Mass/Vol] 0.1 mg/dL Critically low 0.2-1.0 [facility] Comment on above: Performed By: #### C MP, BNP ####[facility] Tulabweblh1549 [place] [phone]. Villa Yanes Calcium [Mass/Vol] 8.3 mg/dL Critically low 8.5-10.1 [facility] Comment on above: Performed By: #### C MP, BNP ####[facility] Zpvjqeiukz1018 [place] [id number]. Villa Yanes Chloride [Moles/Vol] 100 mmol/L Normal 98-107 [facility] Comment on above: Performed By: #### C MP, BNP ####[facility] Dblqtbydxz5968 [place] [address]Dr. Villa Yanes CO2 [Moles/Vol] 28.5 mmol/L Normal 21.0-32.0 [facility] Comment on above: Performed By: #### C MP, BNP ####[facility] Bdhwctvhoe4143 [place] [address]Dr. Villa Yanes Creatinine [Mass/Vol] 1.13 mg/dL Normal 0.70-1.30 [facility] Comment on above: Performed By: #### C MP, BNP ####[facility] Osyrumkuso[address] [place], [place] [address]Dr. Villa Yanes EGFR-AF RUSSIAN >60 Normal >=60 [facility] Comment on above: Performed By: #### C MP, BNP ####[facility] Sjybgvqevj[address] [place], [place] [address]Dr. Villa Yanes EGFR-NON AF RUSSIAN >60 Normal >=60 [facility] Comment on above: Performed By: #### C MP, BNP ####[facility] Lhqawwtnjt9921 [place] [address]Dr. Villa Yanes Globulin (S) [Mass/Vol] 3.7 g/dL Normal [facility] Comment on above: Performed By: #### C MP, BNP ####[facility] Gjxgphbbzl1712 [place] [address]Dr. Villa Yanes Glucose [Mass/Vol] 241 mg/dL Critically high 74-106 [facility] Comment on above: Performed By: #### C MP, BNP ####[facility] Mvxnauoyrl2376 [place] [address]Dr. Villa Yanes Potassium [Moles/Vol] 4.1 mmol/L Normal 3.5-5.1 [facility] Comment on above: Performed By: #### C MP, BNP ####[facility] Wtqdgvhnle5[address] [place], [place] [address]Dr. Villa Yanes Protein [Mass/Vol] 5.7 g/dL Critically low 6.4-8.2 [facility] Comment on above: Performed By: #### C MP, BNP ####[facility] Ifhxxqlnoh0670[address] [place], [place] [address]Dr. Villa Yanes Sodium [Moles/Vol] 136 mmol/L Normal 136-145 [facility] Comment on above: Performed By: #### C MP, BNP ####[facility] Hjvceogxgl870[address] [place], [place] [address]Dr. Villa Joaquín Urea nitrogen [Mass/Vol] 29.0 mg/dL Critically high 7.0-18.0 [facility] Comment on above: Performed By: #### C MP, BNP ####[facility] Ntxrgxnbli25[address] [place], [place] [address]Dr. Brooklynkaren Yanes Urea nitrogen/Creatinine [Mass ratio] 25.7 mg/mg Normal [facility] Comment on above: Performed By: #### C MP, BNP ####[facility] Lnfyxvpykc[address] [place], [place] [address]Dr. Villa Joaquín BNPon 10-12-2021 Natriuretic peptide B (Bld) [Mass/Vol] 4274.0 pg/mL Critically high <=1,800.0 [facility] Comment on above: Result Comment: Test Repeated. Critical Value Verified Performed By: #### B CONSUMER SALES REPRESENTATIVE, CMP ####[facility] Qzdcxajxac9786[address] [place], [place] [address]Dr. Villa Joaquín CBC AUTO DIFFon 10-12-2021 BASO # 0.1 103/ul Normal 0.0-0.1 [facility] Comment on above: Performed By: #### C BC ####[facility] Gdlzqlgshp7420[address] [place], [place] [address]Dr. Villa Yanes Basophils/100 WBC (Bld) 0.6 % Normal 0.2-2.0 [facility] Comment on above: Performed By: #### C BC ####[facility] Yavhmkicux4639[address] [place], [place] [address]Dr. Villa Yanes EO # 0.6 103/ul Normal 0.0-0.7 [facility] Comment on above: Performed By: #### C BC ####[facility] Wnhpafsynz[address] [place], [place] [address]Dr. Villa Yanes Eosinophils/100 WBC (Bld) 4.2 % Normal 0.9-7.0 [facility] Comment on above: Performed By: #### C BC ####[facility] Tqemyaxily6391 [place] [address]Dr. Villa Yanes Erythrocyte distribution width (RBC) [Ratio] 12.9 % Normal 11.0-15.0 [facility] Comment on above: Performed By: #### C BC ####[facility] Iihjfkgqwo[address] [place], [place] [address]Dr. Villa Yanes Hematocrit (Bld) [Volume fraction] 31.5 % Critically low 42.0-54.0 [facility] Comment on above: Performed By: #### C BC ####[facility] Hzbioundhl206[address] [place], [place] [address]Dr. Villa Yanes Hemoglobin (Bld) [Mass/Vol] 9.9 g/dL Critically low 14.0-18.0 [facility] Comment on above: Performed By: #### C BC ####[facility] Nxcacofjka26[address] [place], [place] [address]Dr. Villa Yanes IG # 0.10 10e3/ul Critically high 0.00-0.03 [facility] Comment on above: Performed By: #### C BC ####[facility] Zrtmxqsvwh3176[address] [place], [place] [address]Dr. Villa Yanes IG % 0.7 % Critically high 0.0-0.5 [facility] Comment on above: Performed By: #### C BC ####[facility] Shjlxpyhob16[address] [place], [place] [address]Dr. Villa Yanes LYMPH # 1.9 103/ul Normal 1.2-3.8 [facility] Comment on above: Performed By: #### C BC ####[facility] Ahqtwgdbsb7238[address] [place], [place] [address]Dr. Villa Yanes Lymphocytes/100 WBC (Bld) 13.2 % Critically low 20.5-60.0 [facility] Comment on above: Performed By: #### C BC ####[facility] Vyguefxrbn3072 [place] [phone]. Villa Yanes MANUAL DIFF REQ NO Normal [facility] Comment on above: Performed By: #### C BC ####[facility] Wyvqxuwdgg8839 [place] [phone]. Villa Yanes MCH (RBC) [Entitic mass] 30.1 pg Normal 25.9-34.0 [facility] Comment on above: Performed By: #### C BC ####[facility] Kphdxfitzz3979 [place] [address]Dr. Villa Yanes MCHC (RBC) [Mass/Vol] 31.4 g/dL Normal 29.9-35.2 [facility] Comment on above: Performed By: #### C BC ####[facility] Naptuarbre3135 [place] [address]Dr. Villa Yanes MCV (RBC) [Entitic vol] 95.7 fL Critically high 80.0-94.0 [facility] Comment on above: Performed By: #### C BC ####[facility] Cvpyimdqtt[address] [place], [place] [address]Dr. Villa Joaquín MONO # 0.8 103/ul Normal 0.3-0.8 [facility] Comment on above: Performed By: #### C BC ####[facility] Ufesqchwhr6224 [place] [address]Dr. Villa Joaquín Monocytes/100 WBC (Bld) 5.3 % Normal 1.7-12.0 [facility] Comment on above: Performed By: #### C BC ####[facility] Wlhifzrquu7495 [place] [address]Dr. Villa Yanes NEUT # 10.9 103/ul Critically high 1.4-6.5 [facility] Comment on above: Performed By: #### C BC ####[facility] Nawfhywlze22[address] [place], [place] [address]Dr. Brooklynkaren Yanes Neutrophils/100 WBC (Bld) 76.0 % Critically high 43.0-75.0 [facility] Comment on above: Performed By: #### C BC ####[facility] Cwwcdmcimh8231 [place] [phone]. Villa Yanes Platelet mean volume (Bld) [Entitic vol] 9.6 fL Normal 9.5-13.5 [facility] Comment on above: Performed By: #### C BC ####[facility] Zdvbwzzhff8992 [place] [phone]. Villa Yanes PLT 372 103/ul Normal 150-450 [facility] Comment on above: Performed By: #### C BC ####[facility] Eiqsdgchzq5978 [place] [address]Dr. Villa Yanes RBC 3.29 106/ul Critically low 4.70-6.10 [facility] Comment on above: Performed By: #### C BC ####[facility] Wsukhqwemy8117 [place] [address]Dr. Villa Yanes WBC 14.3 103/ul Critically high 4.0-11.0 [facility] Comment on above: Performed By: #### C BC ####[facility] Ritkdkhfkh8541 [place] [address]Dr. Villa Yanes POINT OF CARE GLUCOSEon 09-22 Glucose [Mass/Vol] 196 mg/dL Critically high 74-106 [facility] Comment on above: Performed By: #### P OCGLUC ####[facility] Dbbhumdqnr2748 [place] [address]Dr. Villa Yanes Glucose [Mass/Vol] 222 mg/dL Critically high 74-106 [facility] Comment on above: Performed By: #### P OCGLUC ####[facility] Zzmfhnqkyl6681 [place] [address]Dr. Villa Yanes Glucose [Mass/Vol] 215 mg/dL Critically high 74-106 [facility] Comment on above: Performed By: #### P OCGLUC ####[facility] Phyuuhywax4221 [place] [address]Dr. Villa Yanes Glucose [Mass/Vol] 224 mg/dL Critically high -106 [facility] Comment on above: Performed By: #### P OCGLUC ####[facility] Fqhflbvkph[address] [place] [address]Dr. Villa Yanes PROF 14(COMP METB)on 022 Albumin [Mass/Vol] 2.1 g/dL Critically low 3.4-5.0 [facility] Comment on above: Performed By: #### B CONSUMER SALES REPRESENTATIVE, CMP ####[facility] Ycxdlykqrs[address] [place] [address]Dr. Villa Yanes Albumin/Globulin [Mass ratio] 0.5 {ratio} Normal [facility] Comment on above: Performed By: #### B CONSUMER SALES REPRESENTATIVE, CMP ####[facility] Xwktfzielw[address] [place] [address]Dr. Villa Yanes ALP [Catalytic activity/Vol] 127 U/L Critically high 46-116 [facility] Comment on above: Performed By: #### B CONSUMER SALES REPRESENTATIVE, CMP ####[facility] Nmnmckcwve[address] [place], [place] [address]Dr. Villa Yanes ALT [Catalytic activity/Vol] 12 U/L Critically low 16-63 [facility] Comment on above: Performed By: #### B CONSUMER SALES REPRESENTATIVE, CMP ####[facility] Shvrdsnmet[address] [place] [address]Dr. Villa Yanes Anion gap [Moles/Vol] 11.4 mmol/L Normal [facility] Comment on above: Performed By: #### B CONSUMER SALES REPRESENTATIVE, CMP ####[facility] Gdayjtzxax[address] [place], [place] [address]Dr. Villa Yanes AST [Catalytic activity/Vol] 13 U/L Critically low 15-37 [facility] Comment on above: Performed By: #### B CONSUMER SALES REPRESENTATIVE, CMP ####[facility] [address]jyeg[address]pm[address] [place], [place] [address]Dr. Villa Yanes Bilirubin [Mass/Vol] 0.1 mg/dL Critically low 0.2-1.0 [facility] Comment on above: Performed By: #### B CONSUMER SALES REPRESENTATIVE, CMP ####[facility] Jthnfoinxa[address] [place], [place] [address]Dr. Villa Yanes Calcium [Mass/Vol] 8.8 mg/dL Normal 8.5-10.1 [facility] Comment on above: Performed By: #### B CONSUMER SALES REPRESENTATIVE, CMP ####[facility] Plxdhzoqhz47[address] [place] [address]Dr. Villa Yanes Chloride [Moles/Vol] 103 mmol/L Normal 98-107 [facility] Comment on above: Performed By: #### B CONSUMER SALES REPRESENTATIVE, CMP ####[facility] Lupuwoalrw[address] [place] [address]Dr. Villa Yanes CO2 [Moles/Vol] 28.4 mmol/L Normal 21.0-32.0 [facility] Comment on above: Performed By: #### B CONSUMER SALES REPRESENTATIVE, CMP ####[facility] Glacewbfqm[address] [place], [place] [address]Dr. Villa Yanes Creatinine [Mass/Vol] 1.13 mg/dL Normal 0.70-1.30 [facility] Comment on above: Performed By: #### B CONSUMER SALES REPRESENTATIVE, CMP ####[facility] Chsyfbmyzf[address] [place], [place] [address]Dr. Villa Yanes EGFR-AF RUSSIAN >60 Normal >=60 [facility] Comment on above: Performed By: #### B CONSUMER SALES REPRESENTATIVE, CMP ####[facility] Vscrfeyiew[address] [place], [place] [address]Dr. Villa Yanes EGFR-NON AF RUSSIAN >60 Normal >=60 [facility] Comment on above: Performed By: #### B CONSUMER SALES REPRESENTATIVE, CMP ####[facility] Lonnapgyll[address] [place], [place] [address]Dr. Villa Yanes Globulin (S) [Mass/Vol] 3.9 g/dL Normal [facility] Comment on above: Performed By: #### B CONSUMER SALES REPRESENTATIVE, CMP ####[facility] Htitkimsak[address] [place] [address]Dr. Villa Yanes Glucose [Mass/Vol] 151 mg/dL Critically high 74-106 [facility] Comment on above: Performed By: #### B CONSUMER SALES REPRESENTATIVE, CMP ####[facility] Ickuotqcop16[address] [place], [place] [address]Dr. Villa Yanes Potassium [Moles/Vol] 3.8 mmol/L Normal 3.5-5.1 [facility] Comment on above: Performed By: #### B CONSUMER SALES REPRESENTATIVE, CMP ####[facility] Jnlzugdvfk6334 [place] [address]Dr. [place]karen Yanes Protein [Mass/Vol] 6.0 g/dL Critically low 6.4-8.2 [facility] Comment on above: Performed By: #### B CONSUMER SALES REPRESENTATIVE, CMP ####[facility] Ebhgaopghs[address] [place], [place] [address]Dr. Villa Yanes Sodium [Moles/Vol] 139 mmol/L Normal 136-145 [facility] Comment on above: Performed By: #### B CONSUMER SALES REPRESENTATIVE, CMP ####[facility] Rmomgvvacu9[address] [place], [place] [address]Dr. Villa Yanes Urea nitrogen [Mass/Vol] 28.0 mg/dL Critically high 7.0-18.0 [facility] Comment on above: Performed By: #### B CONSUMER SALES REPRESENTATIVE, CMP ####[facility] Bjtfntwjsk4[address] [place], [place] [address]Dr. Villa Yanes Urea nitrogen/Creatinine [Mass ratio] 24.8 mg/mg Normal [facility] Comment on above: Performed By: #### B CONSUMER SALES REPRESENTATIVE, CMP ####[facility] Kypdeqfotl[address] [place], [place] [address]Dr. Brooklynkaren Joaquín BNPon 10-11-2021 Natriuretic peptide B (Bld) [Mass/Vol] 1770.0 pg/mL Normal <=1,800.0 [facility] Comment on above: Performed By: #### C MP, BNP ####[facility] Vltuojccoc10[address] [place], [place] [address]Dr. Villa Yanes CBC W MANUAL DIFFon 10-12-19 22 ATYPICAL LYMPH # Normal [facility] Comment on above: Performed By: #### C BCMAN ####[facility] Uhlcalxtsp[address] [place], [place] [address]Dr. Villa Yanes ATYPICAL LYMPH % Normal [facility] Comment on above: Performed By: #### C BCMAN ####[facility] Eqpvgnwclj13[address] [place], [place] [address]Dr. Villa Yanes BAND # 0.3 103/ul Normal 0.0-0.3 [facility] Comment on above: Performed By: #### C BCMAN ####[facility] Rsbvcosybu6[address] [place] [address]Dr. Villa Yanes BAND % 2 % Normal 0-5 [facility] Comment on above: Performed By: #### C BCMAN ####[facility] Kckcdjikvm33[address] [place] [id number]. Yikaren Yanes BASOM # 0.00 103/ul Normal 0.00-0.10 [facility] Comment on above: Performed By: #### C BCMAN ####[facility] Mkztsktnaf3[address] [place] [address]Dr. Villa Yanes BASOM % 0.0 % Critically low 0.2-2.0 [facility] Comment on above: Performed By: #### C BCMARLENA ####[facility] Zviqesenou[address] [place], [place] [address]Dr. Villa Yanes BLAST # Normal [facility] Comment on above: Performed By: #### C BCMARLENA ####[facility] Frohqvxski[address] [place], [place] [address]Dr. Villa Yanes BLAST % Normal [facility] Comment on above: Performed By: #### C BCMARLENA ####[facility] Tmfettwcdl[address] [place], [place] [address]Dr. Villa Yanes CORRECTED WBC Normal 4.0-11.0 [facility] Comment on above: Performed By: #### C BCMARLENA ####[facility] Ooygzjhehp[address] [place], [place] [address]Dr. Yikaren Yanes EOS # 0.00 103/ul Normal 0.00-0.70 [facility] Comment on above: Performed By: #### C BCMARLENA ####[facility] Mqhxdklluy[address] [place], [place] [address]Dr. Villa Yanes EOS% 0.0 % Critically low 0.9-7.0 [facility] Comment on above: Performed By: #### C BCMAN ####[facility] Mzyfrcxnri[address] [place], [place] [address]Dr. Villa Yanes HCT 28.9 % Critically low 42.0-54.0 [facility] Comment on above: Performed By: #### C ESTEFANIA ####[facility] Zrlliniowa[address] [place] [phone]. Villa Yanes HGB 9.0 g/dl Critically low 14.0-18.0 [facility] Comment on above: Performed By: #### C ESTEFANIA ####[facility] Esxmifaxwa5622 [place] [phone]. Villa Yanes LYMPHM # 0.77 103/ul Critically low 1.20-3.80 [facility] Comment on above: Performed By: #### C ESTEFANIA ####[facility] Dosazuunab9956 [place] [phone]. Villa Yanes LYMPHM% 5.0 % Critically low 20.5-60.0 [facility] Comment on above: Performed By: #### C ESTEFANIA ####[facility] Ymxkiplisk0206 [place] [phone]. Villa Yanes MCH 29.7 pg Normal 25.9-34.0 [facility] Comment on above: Performed By: #### C ESTEFANIA ####[facility] Crirrngfeq78[address] [place] [phone]. Villa Yanes MCHC 31.1 g/dl Normal 29.9-35.2 [facility] Comment on above: Performed By: #### C ESTEFANIA ####[facility] Zzljlytmfy5[address] [place] [phone]. Villa Yanes MCV 95.4 fL Critically high 80.0-94.0 [facility] Comment on above: Performed By: #### C BCMARLENA ####[facility] Sjyshjkbkh1851 [place], [place] [address]Yc. Villa Yanes METAMYELOCYTE # Normal [facility] Comment on above: Performed By: #### C BCMARLENA ####[facility] Bmduhusshe7043 [place], [place] [address]Ns. Villa Yanes METAMYELOCYTE % Normal [facility] Comment on above: Performed By: #### C BCMARLENA ####[facility] Cfdjwblykg3[address] [place] [phone]. Villa Yanes MONOM# 0.46 103/ul Normal 0.30-0.80 [facility] Comment on above: Performed By: #### C ESTEFANIA ####[facility] Zypnfdariv3326 [place] [phone]. Villa Yanes MONOM% 3.0 % Normal 1.7-12.0 [facility] Comment on above: Performed By: #### C ESTEFANIA ####[facility] Hcnfqhpdyr2639 [place] [phone]. Villa Yanes MPV 10.1 fL Normal 9.5-13.5 [facility] Comment on above: Performed By: #### Awilda MAC ####[facility] Mtutflsorj[address] [place], [place] [address]Dr. Villa Yanes MYELOCYTE # Normal [facility] Comment on above: Performed By: #### Awilda MAC ####[facility] Acsjg[address]qim[address] [place], [place] [address]Dr. Villa Yanes MYELOCYTE % Normal [facility] Comment on above: Performed By: #### Awilda MAC ####[facility] Quylkteizm[address] [place], [place] [address]Dr. Villa Yanes NRBC Normal [facility] Comment on above: Performed By: #### Awilda MAC ####[facility] Qnwmdkkona3916 [place] [phone]. Villa Yanes PLT 361 103/ul Normal 150-450 [facility] Comment on above: Performed By: #### C ESTEFANIA ####[facility] Loovpycpuc0541 [place] [phone]. Villa Yanes RBC 3.03 106/ul Critically low 4.70-6.10 [facility] Comment on above: Performed By: #### C ESTEFANIA ####[facility] Yfahdmldjq7005 [place] [phone]. Villa Yanes RDW 12.9 % Normal 11.0-15.0 [facility] Comment on above: Performed By: #### Awilda MAC ####[facility] Ddmgrbkftn2168 [place] [phone]. Villa Yanes SEG # 13.86 103/ul Critically high 1.40-6.50 [facility] Comment on above: Performed By: #### C BCMAN ####[facility] Fljtzbkdvk1446 [place] [phone]. Villa Yanes SEG % 90.0 % Critically high 43.0-75.0 [facility] Comment on above: Performed By: #### C BCMAN ####[facility] Fmtsmzcncn0921 [place] [phone]. Villa Yanes WBC 15.4 103/ul Critically high 4.0-11.0 [facility] Comment on above: Performed By: #### C BCMAN ####[facility] Ibhtiqiflt70[address] [place] [address]Dr. Villa Yanes POINT OF CARE GLUCOSEon 09-22 Glucose [Mass/Vol] 214 mg/dL Critically high 74-106 [facility] Comment on above: Performed By: #### P OCGLUC ####[facility] Gkzkpbzeku25[address] [place] [address]Dr. Villa Joaquín Glucose [Mass/Vol] 185 mg/dL Critically high 74-106 [facility] Comment on above: Performed By: #### P OCGLUC ####[facility] Tadxahdxsh1158 [place] [address]Dr. Villa Yanes Glucose [Mass/Vol] 224 mg/dL Critically high 74-106 [facility] Comment on above: Performed By: #### P OCGLUC ####[facility] Ewalfdszcy3351 [place] [address]Dr. Villa Yanes Glucose [Mass/Vol] 273 mg/dL Critically high 74-106 [facility] Comment on above: Performed By: #### P OCGLUC ####[facility] Akuhuynuvu[address] [place], [place] [address]Dr. Villa Yanes PROF 14(COMP METB)on 022 Albumin [Mass/Vol] 1.9 g/dL Critically low 3.4-5.0 [facility] Comment on above: Performed By: #### C MP, BNP ####[facility] Ohyzxmssxq7024 [place] [phone]. Villa Yanes Albumin/Globulin [Mass ratio] 0.5 {ratio} Normal [facility] Comment on above: Performed By: #### C MP, BNP ####[facility] Xtzrtvlego0[address] [place] [address]Dr. Villa Yanes ALP [Catalytic activity/Vol] 153 U/L Critically high 46-116 [facility] Comment on above: Performed By: #### C MP, BNP ####[facility] Rfstfhseym2638 [place] [address]Dr. Villa Yanes ALT [Catalytic activity/Vol] 9 U/L Critically low 16-63 [facility] Comment on above: Performed By: #### C MP, BNP ####[facility] Rvagamuiug3891 [place] [address]Dr. Villa Yanes Anion gap [Moles/Vol] 12.0 mmol/L Normal [facility] Comment on above: Performed By: #### C MP, BNP ####[facility] Bcxnhgapfq0343 [place] [address]Dr. Villa Yanes AST [Catalytic activity/Vol] 10 U/L Critically low 15-37 [facility] Comment on above: Performed By: #### C MP, BNP ####[facility] Nbxrbilgcq5870 [place] [address]Dr. Villa Yanes Bilirubin [Mass/Vol] 0.1 mg/dL Critically low 0.2-1.0 [facility] Comment on above: Performed By: #### C MP, BNP ####[facility] Datxhwyffm2933 [place] [phone]. Villa Yanes Calcium [Mass/Vol] 8.4 mg/dL Critically low 8.5-10.1 [facility] Comment on above: Performed By: #### C MP, BNP ####[facility] Drdfnsxokt6094 [place] [address]Dr. Villa Yanes Chloride [Moles/Vol] 100 mmol/L Normal 98-107 [facility] Comment on above: Performed By: #### C MP, BNP ####[facility] Lpfwveyopr6275 [place] [address]Dr. Villa Joaquín CO2 [Moles/Vol] 27.3 mmol/L Normal 21.0-32.0 [facility] Comment on above: Performed By: #### C MP, BNP ####[facility] Xflyfbdbfv1051 [place] [address]Dr. Villa Yanes Creatinine [Mass/Vol] 1.40 mg/dL Critically high 0.70-1.30 [facility] Comment on above: Performed By: #### C MP, BNP ####[facility] Laovklhjiw[address] [place], [place] [address]Dr. Villa Yanes EGFR-AF RUSSIAN 59 mL/min/1.73m2 Critically low >=60 [facility] Comment on above: Performed By: #### C MP, BNP ####[facility] Phwkjccjcg[address] [place], [place] [address]Dr. Villa Yanes EGFR-NON AF RUSSIAN 49 mL/min/1.73m2 Critically low >=60 [facility] Comment on above: Performed By: #### C MP, BNP ####[facility] Hdynhwavep04[address] [place], [place] [address]Dr. Villa Yanes Globulin (S) [Mass/Vol] 4.0 g/dL Normal [facility] Comment on above: Performed By: #### C MP, BNP ####[facility] Uyqhdaktoe[address] [place], [place] [address]Dr. Villa Yanes Glucose [Mass/Vol] 353 mg/dL Critically high 74-106 T [facility] Comment on above: Performed By: #### C MP, BNP ####[facility] Vucbhrjlfw[address] [place], [place] [address]Dr. Villa Yanes Potassium [Moles/Vol] 4.3 mmol/L Normal 3.5-5.1 [facility] Comment on above: Performed By: #### C MP, BNP ####[facility] Lbaqipnzxk[address] [place], [place] [address]Dr. Villa Yanes Protein [Mass/Vol] 5.9 g/dL Critically low 6.4-8.2 [facility] Comment on above: Performed By: #### C MP, BNP ####[facility] Lbyszktsdv[address] [place], [place] [address]Dr. Villa Yanes Sodium [Moles/Vol] 135 mmol/L Critically low 136-145 [facility] Comment on above: Performed By: #### C MP, BNP ####[facility] Tbcddlgkrz03[address] [place], [place] [address]Dr. Villa Yanes Urea nitrogen [Mass/Vol] 39.0 mg/dL Critically high 7.0-18.0 [facility] Comment on above: Performed By: #### C MP, BNP ####[facility] Ezjsfnqfim[address] [place], [place] [address]Dr. Villa Yanes Urea nitrogen/Creatinine [Mass ratio] 27.9 mg/mg Normal [facility] Comment on above: Performed By: #### C MP, BNP ####[facility] Sttftvawek[address] [place], [place] [address]Dr. Villa Yanes XR CHEST 2 Von 10-11-2021 XR CHEST 2 V Normal [facility] AMMONIAon 10-10-2021 Ammonia (P) [Moles/Vol] 20 umol/L Normal 11-32 [facility] Comment on above: Performed By: #### A MM ####[facility] Jlcebenalk[address] [place], [place] [address]Dr. Villa Yanes BNPon 10-10-2021 Natriuretic peptide B (Bld) [Mass/Vol] 1137.0 pg/mL Normal <=1,800.0 [facility] Comment on above: Performed By: #### C MADM, BNP ####[facility] Zravbseuhc[address] [place], [place] [address]Dr. Brooklynkaren Joaquín Natriuretic peptide B (Bld) [Mass/Vol] 1263.0 pg/mL Normal <=1,800.0 [facility] Comment on above: Performed By: #### C MP, BNP ####[facility] Gecuaoeaey[address] [place], [place] [address]Dr. Villa Yanes CARDIAC ANAMARIA ADMITon 022 CK [Catalytic activity/Vol] 13 U/L Critically low 39-308 [facility] Comment on above: Performed By: #### C MADM, BNP ####[facility] Cvhteujqeu4[address] [place] [address]Dr. Villa Yanes CK.MB [Mass/Vol] ng/mL Normal <=3.60 [facility] Comment on above: Performed By: #### C MADM, BNP ####[facility] Zsgcuojzxh6763 [place] [address]Dr. Villa Yanes HSTROP 9.1 pg/mL Normal 4.0-76.1 [facility] Comment on above: Result Comment: CUT- OFF POINTS HAVE BEEN ESTABLISHED BASED ON THE FOURTH UNIVERSAL DEFINITIONS OF MYOCARDIALINFARCTION. THE UPPER REFERENCE LIMIT (URL) OF TROPONIN, DEFINED THE 99TH PERCENTILE OFcTnI DISTRIBUTION IN A REFERENCE POPULATION, HAS BEEN CONFIRMED THE DECISION THRESHOLDFOR SD DIAGNOSIS. Performed By: #### C MADM, BNP ####[facility] Noezamrjdg6870 [place] [address]Dr. Villa Joaquín JULIA 52 ng/mL Normal 16-96 [facility] Comment on above: Performed By: #### C MADM, BNP ####[facility] Nsbcjjrrsv5433 [place] [address]Dr. Villa Joaquín CBC AUTO DIFFon 10-10-2021 BASO # 0.1 103/ul Normal 0.0-0.1 [facility] Comment on above: Performed By: #### C BC ####[facility] Dnzwcexywd7354 [place] [address]Dr. Villa Joaquín Basophils/100 WBC (Bld) 0.3 % Normal 0.2-2.0 [facility] Comment on above: Performed By: #### C BC ####[facility] Wcraxqypey9092 [place] [address]Dr. Villa Yanes EO # 0.2 103/ul Normal 0.0-0.7 [facility] Comment on above: Performed By: #### C BC ####[facility] Bboasjeobu0482 [place] [address]Dr. Villa Yanes Eosinophils/100 WBC (Bld) 1.1 % Normal 0.9-7.0 [facility] Comment on above: Performed By: #### C BC ####[facility] Cxvepbihpi[address] [place], [place] [address]Dr. Villa Yanes Erythrocyte distribution width (RBC) [Ratio] 13.2 % Normal 11.0-15.0 [facility] Comment on above: Performed By: #### C BC ####[facility] Phfypywyvb[address] [place], [place] [address]Dr. Villa Yanes Hematocrit (Bld) [Volume fraction] 29.2 % Critically low 42.0-54.0 [facility] Comment on above: Performed By: #### C BC ####[facility] Mrnydwrfhl[address] [place], [place] [address]Dr. Villa Yanes Hemoglobin (Bld) [Mass/Vol] 9.3 g/dL Critically low 14.0-18.0 [facility] Comment on above: Performed By: #### C BC ####[facility] Rrowdoewlr[address] [place], [place] [address]Dr. Villa Yanes IG # 0.11 10e3/ul Critically high 0.00-0.03 [facility] Comment on above: Performed By: #### C BC ####[facility] Ijhzxbarlo97[address] [place], [place] [address]Dr. Villa Yanes IG % 0.7 % Critically high 0.0-0.5 [facility] Comment on above: Performed By: #### C BC ####[facility] Bbxzxxbpcn[address] [place], [place] [address]Dr. Villa Yanes LYMPH # 1.0 103/ul Critically low 1.2-3.8 [facility] Comment on above: Performed By: #### C BC ####[facility] Sfhxmzyzoo[address] [place], [place] [address]Dr. Villa Yanes Lymphocytes/100 WBC (Bld) 6.4 % Critically low 20.5-60.0 [facility] Comment on above: Performed By: #### C BC ####[facility] Fyfzvosoke9[address] [place] [phone]. Villa Yanes MANUAL DIFF REQ NO Normal [facility] Comment on above: Performed By: #### C BC ####[facility] Meeswdvxlh0781 [place] [phone]. Villa Yanes MCH (RBC) [Entitic mass] 30.2 pg Normal 25.9-34.0 [facility] Comment on above: Performed By: #### C BC ####[facility] Xnbsnmflhg4981 [place] [phone]. Villa Yanes MCHC (RBC) [Mass/Vol] 31.8 g/dL Normal 29.9-35.2 [facility] Comment on above: Performed By: #### C BC ####[facility] Sowxtwallh5[address] [place] [address]Dr. Villa Yanes MCV (RBC) [Entitic vol] 94.8 fL Critically high 80.0-94.0 [facility] Comment on above: Performed By: #### C BC ####[facility] Upkojh[address]ry[address] [place], [place] [address]Dr. Villa Joaquín MONO # 0.9 103/ul Critically high 0.3-0.8 [facility] Comment on above: Performed By: #### C BC ####[facility] Tzzqoqhpdh[address] [place], [place] [address]Dr. [place]karen Yanes Monocytes/100 WBC (Bld) 5.4 % Normal 1.7-12.0 [facility] Comment on above: Performed By: #### C BC ####[facility] Eldzlfptws6798 [place] [phone]. Villa Yanes NEUT # 13.7 103/ul Critically high 1.4-6.5 [facility] Comment on above: Performed By: #### C BC ####[facility] Xoczft[address]mp[address] [place], [place] [address]Dr. [place]karen Yanes Neutrophils/100 WBC (Bld) 86.1 % Critically high 43.0-75.0 [facility] Comment on above: Performed By: #### C BC ####[facility] Ytjtvmyvrg4800 [place] [phone]. Villa Yanes Platelet mean volume (Bld) [Entitic vol] 10.5 fL Normal 9.5-13.5 [facility] Comment on above: Performed By: #### C BC ####[facility] Sczgxikysp1708 [address] [place] [id number]. Villa Yanes PLT 293 103/ul Normal 150-450 [facility] Comment on above: Performed By: #### C BC ####[facility] Jmfhvmotja8094 [place] [id number]. Villa Yanes RBC 3.08 106/ul Critically low 4.70-6.10 [facility] Comment on above: Performed By: #### C BC ####[facility] Jcetpcgash8164 [place] [id number]. Villa Yanes WBC 15.9 103/ul Critically high 4.0-11.0 [facility] Comment on above: Performed By: #### C BC ####[facility] Vizpjiafpc2314 [place] [id number]. Villa Yanes CULTURE URINEon 10-10-2021 CULTURE URINE Culture Observations : No growth Normal [facility] Comment on above: Performed By: #### U RCX ####[facility] Cfbzsyhawi4487 [place] [phone]. Villa Yanes POINT OF CARE GLUCOSEon 09-22 Glucose [Mass/Vol] 214 mg/dL Critically high 74-106 [facility] Comment on above: Performed By: #### P OCGLUC ####[facility] Lcauwwndpl0951 [place] [id number]. Villa Yanes Glucose [Mass/Vol] 309 mg/dL Critically high 74-106 [facility] Comment on above: Performed By: #### P OCGLUC ####[facility] Xsajwftjic1794 [place] [id number]. Villa Yanes Glucose [Mass/Vol] 196 mg/dL Critically high 74-106 [facility] Comment on above: Performed By: #### P OCGLUC ####[facility] Plhrfnmtjo2818 [place] [address]Dr. Villa Yanes Glucose [Mass/Vol] 185 mg/dL Critically high 74-106 [facility] Comment on above: Performed By: #### P OCGLUC ####[facility] Imxyllbump8814 [place] [address]Dr. Villa Yanes PROF 14(COMP METB)on 022 Albumin [Mass/Vol] 1.7 g/dL Critically low 3.4-5.0 [facility] Comment on above: Performed By: #### C MP, BNP ####[facility] Pdnvjpdcdu3825 [place] [address]Dr. Villa Yanes Albumin/Globulin [Mass ratio] 0.4 {ratio} Normal [facility] Comment on above: Performed By: #### C MP, BNP ####[facility] Snjzcwaels4414 [place] [address]Dr. Villa Yanes ALP [Catalytic activity/Vol] 127 U/L Critically high 46-116 [facility] Comment on above: Performed By: #### C MP, BNP ####[facility] Fxixqugoqe2003 [place] [address]Dr. Villa Yanes ALT [Catalytic activity/Vol] 6 U/L Critically low 16-63 [facility] Comment on above: Performed By: #### C MP, BNP ####[facility] Nueiqsivzy1715 [place] [address]Dr. Villa Yanes Anion gap [Moles/Vol] 11.6 mmol/L Normal [facility] Comment on above: Performed By: #### C MP, BNP ####[facility] Mkeynwclkm1111 [place] [address]Dr. Villa Yanes AST [Catalytic activity/Vol] 15 U/L Normal 15-37 [facility] Comment on above: Performed By: #### C MP, BNP ####[facility] Exihwaokjj1306 [place] [address]Dr. Villa Yanes Bilirubin [Mass/Vol] 0.2 mg/dL Normal 0.2-1.0 [facility] Comment on above: Performed By: #### C MP, BNP ####[facility] Qmmceqakdg7951 [place] [address]Dr. Villa Yanes Calcium [Mass/Vol] 8.4 mg/dL Critically low 8.5-10.1 [facility] Comment on above: Performed By: #### C MP, BNP ####[facility] Enczprlnmi134[address] [place], [place] [address]Dr. Villa Yanes Chloride [Moles/Vol] 101 mmol/L Normal 98-107 [facility] Comment on above: Performed By: #### C MP, BNP ####[facility] Okvpkylyts88[address] [place], [place] [address]Dr. Villa Yanes CO2 [Moles/Vol] 26.3 mmol/L Normal 21.0-32.0 [facility] Comment on above: Performed By: #### C MP, BNP ####[facility] Pqcnzzjzzr54[address] [place], [place] [address]Dr. Villa Yanes Creatinine [Mass/Vol] 1.57 mg/dL Critically high 0.70-1.30 [facility] Comment on above: Performed By: #### C MP, BNP ####[facility] Mslhhdxkql7[address] [place], [place] [address]Dr. Villa Yanes EGFR-AF RUSSIAN 52 mL/min/1.73m2 Critically low >=60 [facility] Comment on above: Performed By: #### C MP, BNP ####[facility] Intjjsrkxk4714[address] [place], [place] [address]Dr. Villa Yanes EGFR-NON AF RUSSIAN 43 mL/min/1.73m2 Critically low >=60 [facility] Comment on above: Performed By: #### C MP, BNP ####[facility] Ussffewntg9455[address] [place], [place] [address]Dr. Villa Yanes Globulin (S) [Mass/Vol] 4.1 g/dL Normal [facility] Comment on above: Performed By: #### C MP, BNP ####[facility] Rxywfgssot636[address] [place], [place] [address]Dr. Villa Joaquín Glucose [Mass/Vol] 243 mg/dL Critically high 74-106 [facility] Comment on above: Performed By: #### C MP, BNP ####[facility] Zakxgxbjzt570[address] [place], [place] [address]Dr. Villa Yanes Potassium [Moles/Vol] 3.9 mmol/L Normal 3.5-5.1 [facility] Comment on above: Performed By: #### C MP, BNP ####[facility] Wufrlowbjo7774[address] [place], [place] [address]Dr. Villa Yanes Protein [Mass/Vol] 5.8 g/dL Critically low 6.4-8.2 [facility] Comment on above: Performed By: #### C MP, BNP ####[facility] Mmtawscmoy88[address] [place], [place] [address]Dr. Villa Yanes Sodium [Moles/Vol] 135 mmol/L Critically low 136-145 [facility] Comment on above: Performed By: #### C MP, BNP ####[facility] Bczpgnqcmf40[address] [place], [place] [address]Dr. Villa Yanes Urea nitrogen [Mass/Vol] 35.0 mg/dL Critically high 7.0-18.0 [facility] Comment on above: Performed By: #### C MP, BNP ####[facility] Hxmmkvbagj6217[address] [place], [place] [address]Dr. Villa Yanes Urea nitrogen/Creatinine [Mass ratio] 22.3 mg/mg Normal [facility] Comment on above: Performed By: #### C MP, BNP ####[facility] Wettvgygkm5936[address] [place], [place] [address]Dr. Villa Yanes UA RANDOM W/MICROSCOPICon BACTERIA NONE SEEN Normal NONE SEEN [facility] Comment on above: Performed By: #### U AMIC ####[facility] Hzkhytfnpu4799[address] [place], [place] [address]Dr. Villa Yanes Bilirubin Ql (U) Negative Normal NEGATIVE [facility] Comment on above: Performed By: #### U AMIC ####[facility] Sydduhrxdl426[address] [place], [place] [address]Dr. Villa Yanes CAST NONE SEEN Normal NONE SEEN [facility] Comment on above: Performed By: #### U AMIC ####[facility] Ljitidrkjy70[address] [place], [place] [address]Dr. Villa Yanes Clarity (U) CLEAR Normal CLEAR [facility] Comment on above: Performed By: #### U AMIC ####[facility] Zhvclglicz5213[address] [place], [place] [address]Dr. Villa Yanes Color (U) YELLOW Normal YELLOW [facility] Comment on above: Performed By: #### U AMIC ####[facility] Lviggxninz7699[address] [place], [place] [address]Dr. Villa Yanes Crystals LM Nom (Urine sed) NONE SEEN Normal NONE SEEN [facility] Comment on above: Performed By: #### U AMIC ####[facility] Afbmawrlvg6565[address] [place], [place] [address]Dr. Villa Yanes Epithelial cells LM Ql (Urine sed) RARE Normal NONE SEEN /RARE [facility] Comment on above: Performed By: #### U AMIC ####[facility] Lylyxbicpq0001[address] [place], [place] [address]Dr. Villa Yanes Glucose Ql (U) Negative Normal NEGATIVE [facility] Comment on above: Performed By: #### U AMIC ####[facility] Jvszsuqbit3687[address] [place], [place] [address]Dr. Villa Yanes Hemoglobin Ql (U) Negative Normal NEGATIVE [facility] Comment on above: Performed By: #### U AMIC ####[facility] Pfwcfoavga1418[address] [place], [place] [address]Dr. Villa Yanes Ketones Ql (U) Negative Normal NEGATIVE [facility] Comment on above: Performed By: #### U AMIC ####[facility] Wmjtnwbcio1448[address] [place], [place] [address]Dr. Brooklynlan Yanes LEUKOCYTES Negative Normal NEGATIVE [facility] Comment on above: Performed By: #### U AMIC ####[facility] Wlihzoukyk9869[address] [place], [place] [address]Dr. Yilan Yanes MUCOUS NONE SEEN Normal NONE SEEN [facility] Comment on above: Performed By: #### U AMIC ####[facility] Xnaovjvqzd4185 [place] [address]Dr. Villa Yanes Nitrite Ql (U) Negative Normal NEGATIVE [facility] Comment on above: Performed By: #### U AMIC ####[facility] Rzvjwocuaw4567 [place] [address]Dr. Villa Yanes pH (U) 5.5 [pH] Normal 5-9 [facility] Comment on above: Performed By: #### U AMIC ####[facility] Yohdztutnl8840[address] [place], [place] [address]Dr. Villa Yanes RBC 2-5 Abnormal 0-2 [facility] Comment on above: Performed By: #### U AMIC ####[facility] Rxgfqrnzxq198[address] [place], [place] [address]Dr. Villa Yanes SPEC GRAVITY 1.025 Normal 1.005-<=1.0 25 [facility] Comment on above: Performed By: #### U AMIC ####[facility] Runyckbrfc2460[address] [place], [place] [address]Dr. Villa Yanes UA PROTEIN 100 mg/dl Abnormal NEGATIVE/ TRACE [facility] Comment on above: Performed By: #### U AMIC ####[facility] Qjokciizkh3915[address] [place], [place] [address]Dr. Villa Joaquín Urobilinogen Qn (U) 0.2 {Mackenzie'U}/dL Normal 0.2 - 1. 0 [facility] Comment on above: Performed By: #### U AMIC ####[facility] Gqqulyewck4850[address] [place], [place] [address]Dr. Villa Yanes WBC NONE SEEN Normal NONE SEEN [facility] Comment on above: Performed By: #### U AMIC ####[facility] Mmfffdqgcp[address] [place], [place] [address]Dr. Brooklynkaren Yanes BNPon 10-09-2021 Natriuretic peptide B (Bld) [Mass/Vol] 1670.0 pg/mL Normal <=1,800.0 [facility] Comment on above: Performed By: #### B CONSUMER SALES REPRESENTATIVE, CMP ####[facility] Kmxxtndsiq0554 [place] [address]Dr. Villa Yanes CBC AUTO DIFFon 10-09-2021 BASO # 0.1 103/ul Normal 0.0-0.1 [facility] Comment on above: Performed By: #### C BC ####[facility] Kieahdsjms9[address] [place], [place] [address]Dr. Villa Yanes Basophils/100 WBC (Bld) 0.3 % Normal 0.2-2.0 [facility] Comment on above: Performed By: #### C BC ####[facility] Bnukxehytx7586[address] [place], [place] [address]Dr. Villa Yanes EO # 0.2 103/ul Normal 0.0-0.7 [facility] Comment on above: Performed By: #### C BC ####[facility] Ulkpmyejmt197[address] [place], [place] [address]Dr. Brooklynkaren Yanes Eosinophils/100 WBC (Bld) 1.1 % Normal 0.9-7.0 [facility] Comment on above: Performed By: #### C BC ####[facility] Eqnnblqvfg1413[address] [place], [place] [address]Dr. Villa Yanes Erythrocyte distribution width (RBC) [Ratio] 12.9 % Normal 11.0-15.0 [facility] Comment on above: Performed By: #### C BC ####[facility] Qtimzvqari0[address] [place], [place] [address]Dr. Villa Yanes Hematocrit (Bld) [Volume fraction] 32.6 % Critically low 42.0-54.0 [facility] Comment on above: Performed By: #### C BC ####[facility] Frpqmesawd1416[address] [place], [place] [address]Dr. Villa Yanes Hemoglobin (Bld) [Mass/Vol] 10.4 g/dL Critically low 14.0-18.0 [facility] Comment on above: Performed By: #### C BC ####[facility] Oklusmkzpl37[address] [place], [place] [address]Dr. Brooklynkaren Yanes IG # 0.13 10e3/ul Critically high 0.00-0.03 [facility] Comment on above: Performed By: #### C BC ####[facility] Chbymcbojt4267 [place] [id number]. Villa Yanes IG % 0.9 % Critically high 0.0-0.5 [facility] Comment on above: Performed By: #### C BC ####[facility] Fhnluczamj8497 [place] [id number]. Villa Yanes LYMPH # 1.0 103/ul Critically low 1.2-3.8 [facility] Comment on above: Performed By: #### C BC ####[facility] Vwyhrmijxg8662 [place] [address]Dr. Villa Yanes Lymphocytes/100 WBC (Bld) 6.7 % Critically low 20.5-60.0 [facility] Comment on above: Performed By: #### C BC ####[facility] Heyggugqnw5535 [place] [address]Dr. Brooklynkaren Yanes MANUAL DIFF REQ NO Normal [facility] Comment on above: Performed By: #### C BC ####[facility] Ltxaiaodwj[address] [place], [place] [address]Dr. Villa Yanes MCH (RBC) [Entitic mass] 30.5 pg Normal 25.9-34.0 [facility] Comment on above: Performed By: #### C BC ####[facility] Qbmdkjlbys8050 [place] [phone]. Villa Yanes MCHC (RBC) [Mass/Vol] 31.9 g/dL Normal 29.9-35.2 [facility] Comment on above: Performed By: #### C BC ####[facility] Jhyheuvqzz[address] [place], [place] [address]Dr. Villa Yanes MCV (RBC) [Entitic vol] 95.6 fL Critically high 80.0-94.0 [facility] Comment on above: Performed By: #### C BC ####[facility] Xuncqzqdqa17[address] [place], [place] [address]Dr. Villa Yanes MONO # 0.8 103/ul Normal 0.3-0.8 [facility] Comment on above: Performed By: #### C BC ####[facility] Kxiwvkebmw8590 [place] [phone]. Villa Yanes Monocytes/100 WBC (Bld) 5.4 % Normal 1.7-12.0 [facility] Comment on above: Performed By: #### C BC ####[facility] Lbmnmteyhg6875 [place] [phone]. Villa Yanes NEUT # 13.0 103/ul Critically high 1.4-6.5 [facility] Comment on above: Performed By: #### C BC ####[facility] Hcisiocsmn3402 [place] [address]Dr. Villa Yanes Neutrophils/100 WBC (Bld) 85.6 % Critically high 43.0-75.0 [facility] Comment on above: Performed By: #### C BC ####[facility] Gcpkolnwdk8123 [place] [address]Dr. Villa Yanes Platelet mean volume (Bld) [Entitic vol] 9.8 fL Normal 9.5-13.5 [facility] Comment on above: Performed By: #### C BC ####[facility] Tbzxvqnuhk3334 [place] [address]Dr. Villa Yanes PLT 299 103/ul Normal 150-450 [facility] Comment on above: Performed By: #### C BC ####[facility] Cibeaupkso9318 [place] [address]Dr. Villa Yanes RBC 3.41 106/ul Critically low 4.70-6.10 [facility] Comment on above: Performed By: #### C BC ####[facility] Kjlehryqer8151 [place] [address]Dr. Villa Yanes WBC 15.1 103/ul Critically high 4.0-11.0 [facility] Comment on above: Performed By: #### C BC ####[facility] Upbqmbwgpq7305 [place] [address]Dr. [address] Y[address] CT ABD/PELV W CONon 10-10-19 CT ABD/PELV W CON Normal [facility] MAGNESIUMon 10-09-2021 Magnesium [Mass/Vol] 2.5 mg/dL Critically high 1.8-2.4 [facility] Comment on above: Performed By: #### PETER Hart ####[facility] Sglpvvhnuh5[address] [place], [place] [address]Dr. Vilal Yanes PHOSPHORUSon 10-09-2021 Phosphate [Mass/Vol] 3.8 mg/dL Normal 2.6-4.7 [facility] Comment on above: Performed By: #### PETER Hart ####[facility] Cgqzqcnkrg8[address] [place], [place] [address]Dr. Villa Yanes POINT OF CARE GLUCOSEon 09-21 Glucose [Mass/Vol] 244 mg/dL Critically high 74-106 [facility] Comment on above: Performed By: #### P OCGLUC ####[facility] Qswylqxvrr9[address] [place], [place] [address]Dr. Villa Yanes Glucose [Mass/Vol] 171 mg/dL Critically high 74-106 [facility] Comment on above: Performed By: #### P OCGLUC ####[facility] Psfojqxfna9965[address] [place], [place] [address]Dr. Villa Yanes Glucose [Mass/Vol] 203 mg/dL Critically high -106 [facility] Comment on above: Performed By: #### P OCGLUC ####[facility] Rcgbpqzupm[address] [place], [place] [address]Dr. Villa Yanes Glucose [Mass/Vol] 171 mg/dL Critically high 74-106 [facility] Comment on above: Performed By: #### P OCGLUC ####[facility] Uxhrsuiwmv06[address] [place], [place] [address]Dr. Villa Yanes PROF 14(COMP METB)on 022 Albumin [Mass/Vol] 2.0 g/dL Critically low 3.4-5.0 [facility] Comment on above: Performed By: #### B CONSUMER SALES REPRESENTATIVE, CMP ####[facility] Geqkkrkrtb15[address] [place], [place] [address]Dr. iVlla Yanes Albumin/Globulin [Mass ratio] 0.5 {ratio} Normal [facility] Comment on above: Performed By: #### B CONSUMER SALES REPRESENTATIVE, CMP ####[facility] Sgwrzrtyvq7095 [place] [phone]. Villa Yanes ALP [Catalytic activity/Vol] 113 U/L Normal 46-116 [facility] Comment on above: Performed By: #### B CONSUMER SALES REPRESENTATIVE, CMP ####[facility] Rdiekngpzv1285 [place] [phone]. Villa Joaquín ALT [Catalytic activity/Vol] 10 U/L Critically low 16-63 [facility] Comment on above: Performed By: #### B CONSUMER SALES REPRESENTATIVE, CMP ####[facility] Zyhemvkmbe8887 [place] [phone]. Villa Yanes Anion gap [Moles/Vol] 11.0 mmol/L Normal [facility] Comment on above: Performed By: #### B CONSUMER SALES REPRESENTATIVE, CMP ####[facility] Jljghsgvmw[address] [place], [place] [address]Dr. Villa Yanes AST [Catalytic activity/Vol] 28 U/L Normal 15-37 [facility] Comment on above: Performed By: #### B CONSUMER SALES REPRESENTATIVE, CMP ####[facility] Leccgspfwm[address] [place], [place] [address]Dr. Brooklynkaren Joaquín Bilirubin [Mass/Vol] 0.3 mg/dL Normal 0.2-1.0 [facility] Comment on above: Performed By: #### B CONSUMER SALES REPRESENTATIVE, CMP ####[facility] Ohqspgaibn7682 [place] [phone]. Villa Yanes Calcium [Mass/Vol] 8.7 mg/dL Normal 8.5-10.1 [facility] Comment on above: Performed By: #### B CONSUMER SALES REPRESENTATIVE, CMP ####[facility] Uxvogiuqit1930 [place] [phone]. Villa Yanes Chloride [Moles/Vol] 100 mmol/L Normal 98-107 [facility] Comment on above: Performed By: #### B CONSUMER SALES REPRESENTATIVE, CMP ####[facility] Wqqmpfacwj3441 [place] [address]Dr. Villa Yanes CO2 [Moles/Vol] 28.1 mmol/L Normal 21.0-32.0 [facility] Comment on above: Performed By: #### B CONSUMER SALES REPRESENTATIVE, CMP ####[facility] Ipgitfewau6906 [place] [address]Dr. Villa Joaquín Creatinine [Mass/Vol] 1.61 mg/dL Critically high 0.70-1.30 [facility] Comment on above: Performed By: #### B CONSUMER SALES REPRESENTATIVE, CMP ####[facility] Bimioslegc[address] [place], [place] [address]Dr. Villa Joaquín EGFR-AF RUSSIAN 50 mL/min/1.73m2 Critically low >=60 [facility] Comment on above: Performed By: #### B CONSUMER SALES REPRESENTATIVE, CMP ####[facility] Gdfrkjbccr[address] [place], [place] [address]Dr. Villa Yanes EGFR-NON AF RUSSIAN 42 mL/min/1.73m2 Critically low >=60 [facility] Comment on above: Performed By: #### B CONSUMER SALES REPRESENTATIVE, CMP ####[facility] Bnllxbclyt8325[address] [place], [place] [address]Dr. Villa Yanes Globulin (S) [Mass/Vol] 4.1 g/dL Normal [facility] Comment on above: Performed By: #### B CONSUMER SALES REPRESENTATIVE, CMP ####[facility] Pbsubavvpg8[address] [place], [place] [address]Dr. Villa Yanes Glucose [Mass/Vol] 154 mg/dL Critically high 74-106 T [facility] Comment on above: Performed By: #### B CONSUMER SALES REPRESENTATIVE, CMP ####[facility] Zjawdaboyr6[address] [place], [place] [address]Dr. Villa Yanes Potassium [Moles/Vol] 4.1 mmol/L Normal 3.5-5.1 [facility] Comment on above: Performed By: #### B CONSUMER SALES REPRESENTATIVE, CMP ####[facility] Weenbmvsfn9835[address] [place], [place] [address]Dr. Villa Yanes Protein [Mass/Vol] 6.1 g/dL Critically low 6.4-8.2 [facility] Comment on above: Performed By: #### B CONSUMER SALES REPRESENTATIVE, CMP ####[facility] Stdoiwsfym20[address] [place], [place] [address]Dr. Villa Yanes Sodium [Moles/Vol] 135 mmol/L Critically low 136-145 [facility] Comment on above: Performed By: #### B CONSUMER SALES REPRESENTATIVE, CMP ####[facility] Drqzvwrxrb9[address] [place], [place] [address]Dr. Villa Yanes Urea nitrogen [Mass/Vol] 29.0 mg/dL Critically high 7.0-18.0 [facility] Comment on above: Performed By: #### B CONSUMER SALES REPRESENTATIVE, CMP ####[facility] Nftanwqsak01[address] [place], [place] [address]Dr. Villa Yanes Urea nitrogen/Creatinine [Mass ratio] 18.0 mg/mg Normal [facility] Comment on above: Performed By: #### B CONSUMER SALES REPRESENTATIVE, CMP ####[facility] Qlpusewqly[address] [place], [place] [address]Dr. Villa Yanes XR ABD FLAT UP_PA Temo 10-09 XR ABD FLAT UP_PA CH Normal [facility] BNPon 10-08-2021 Natriuretic peptide B (Bld) [Mass/Vol] 1299.0 pg/mL Normal <=1,800.0 [facility] Comment on above: Performed By: #### B CONSUMER SALES REPRESENTATIVE, CMP ####[facility] Sbkxybewzi[address] [place], [place] [address]Dr. Villa Yanes CBC AUTO DIFFon 10-08-2021 BASO # 0.1 103/ul Normal 0.0-0.1 [facility] Comment on above: Performed By: #### C BC ####[facility] Vdndfajfsu[address] [place], [place] [address]Dr. Villa Yanes Basophils/100 WBC (Bld) 0.7 % Normal 0.2-2.0 [facility] Comment on above: Performed By: #### C BC ####[facility] Tqxdriknsx22[address] [place], [place] [address]Dr. Villa Yanes EO # 0.4 103/ul Normal 0.0-0.7 [facility] Comment on above: Performed By: #### C BC ####[facility] Jycynvebmn19[address] [place], [place] [address]Dr. Villa Yanes Eosinophils/100 WBC (Bld) 4.5 % Normal 0.9-7.0 [facility] Comment on above: Performed By: #### C BC ####[facility] Evkabslipv[address] [place], [place] [address]Dr. Villa Yanes Erythrocyte distribution width (RBC) [Ratio] 13.1 % Normal 11.0-15.0 [facility] Comment on above: Performed By: #### C BC ####[facility] [facility] [address] [place], [place] [address]DrBrenden Yanes Hematocrit (Bld) [Volume fraction] 32.8 % Critically low 42.0-54.0 [facility] Comment on above: Performed By: #### C BC ####[facility] [address] [place], [place] [address]DrBrenden Yanes Hemoglobin (Bld) [Mass/Vol] 10.3 g/dL Critically low 14.0-18.0 [facility] Comment on above: Performed By: #### C BC ####[facility] Ds[address]fc[address] [place], [place] [address]Dr. Villa Yanes IG # 0.13 10e3/ul Critically high 0.00-0.03 [facility] Comment on above: Performed By: #### C BC ####[facility] Gyhqmgcpzp[address] [place], [place] [address]Dr. Villa Yanes IG % 1.4 % Critically high 0.0-0.5 [facility] Comment on above: Performed By: #### C BC ####[facility] O[address]ucqis[address] [place], [place] [address]DrBrenden Yanes LYMPH # 1.2 103/ul Normal 1.2-3.8 [facility] Comment on above: Performed By: #### C BC ####[facility] N[address] [place], [place] [address]DrBrenden Yanes Lymphocytes/100 WBC (Bld) 13.0 % Critically low 20.5-60.0 [facility] Comment on above: Performed By: #### C BC ####[facility] [address] [place], [place] [address]DrBrenden Yanes MANUAL DIFF REQ NO Normal [facility] Comment on above: Performed By: #### C BC ####[facility] [address] [place] [address]DrBrenden Yanes MCH (RBC) [Entitic mass] 30.2 pg Normal 25.9-34.0 [facility] Comment on above: Performed By: #### C BC ####[facility] [address] [place] [address]DrBrenden Yanes MCHC (RBC) [Mass/Vol] 31.4 g/dL Normal 29.9-35.2 [facility] Comment on above: Performed By: #### C BC ####[facility] [address] [place], [place] [address]DrBrenden Yanes MCV (RBC) [Entitic vol] 96.2 fL Critically high 80.0-94.0 [facility] Comment on above: Performed By: #### C BC ####[facility] [address] [place], [place] [address]DrBrenden Yanes MONO # 0.7 103/ul Normal 0.3-0.8 [facility] Comment on above: Performed By: #### C BC ####[facility] N[address] [place], [place] [address]DrBrenden Yanes Monocytes/100 WBC (Bld) 7.9 % Normal 1.7-12.0 [facility] Comment on above: Performed By: #### C BC ####[facility] [address] [place], [place] [address]DrBrenden Yanes NEUT # 6.8 103/ul Critically high 1.4-6.5 [facility] Comment on above: Performed By: #### C BC ####[facility] [address] [place], [place] [address]DrBrenden Yanes Neutrophils/100 WBC (Bld) 72.5 % Normal 43.0-75.0 [facility] Comment on above: Performed By: #### C BC ####[facility] M[address] [place], [place] [address]DrBrenden Yanes Platelet mean volume (Bld) [Entitic vol] 9.2 fL Critically low 9.5-13.5 [facility] Comment on above: Performed By: #### C BC ####[facility] [address] [place] [id number]. Villa Yanes PLT 258 103/ul Normal 150-450 [facility] Comment on above: Performed By: #### C BC ####[facility] Qxvbjvam[address] [place] [address]Dr. Villa Yanes RBC 3.41 106/ul Critically low 4.70-6.10 [facility] Comment on above: Performed By: #### C BC ####[facility] [address]um[address] [place] [address]Dr. Villa Yanes WBC 9.4 103/ul Normal 4.0-11.0 [facility] Comment on above: Performed By: #### C BC ####[facility] [address] [place] [address]DrBrenden Villa Yanes POINT OF CARE GLUCOSEon 09-21 Glucose [Mass/Vol] 180 mg/dL Critically high 74-106 [facility] Comment on above: Performed By: #### P OCGLUC ####[facility] [address]ssm[address] [place] [address]Dr. Villa Ynaes Glucose [Mass/Vol] 159 mg/dL Critically high 74-106 [facility] Comment on above: Performed By: #### P OCGLUC ####[facility] [address]ytc[address] [place] [address]Dr. Villa Yanes Glucose [Mass/Vol] 110 mg/dL Critically high 74-106 [facility] Comment on above: Performed By: #### P OCGLUC ####[facility] [address]upp[address] [place] [address]DrBrenden Villa Joaquín PROF 14(COMP METB)on 022 Albumin [Mass/Vol] 2.1 g/dL Critically low 3.4-5.0 [facility] Comment on above: Performed By: #### B CONSUMER SALES REPRESENTATIVE, CMP ####[facility] [address] [place] [id number]. Villa Yanes Albumin/Globulin [Mass ratio] 0.5 {ratio} Normal [facility] Comment on above: Performed By: #### B CONSUMER SALES REPRESENTATIVE, CMP ####[facility] [address] [place] [address]Dr. Villa Yanes ALP [Catalytic activity/Vol] 92 U/L Normal 46-116 [facility] Comment on above: Performed By: #### B CONSUMER SALES REPRESENTATIVE, CMP ####[facility] B[address]vsmkq[address] [place] [address]Dr. Villa Yanes ALT [Catalytic activity/Vol] 9 U/L Critically low 16-63 [facility] Comment on above: Performed By: #### B CONSUMER SALES REPRESENTATIVE, CMP ####[facility] Zarmclhagq[address] [place], [place] [address]Dr. Villa Yanes Anion gap [Moles/Vol] 9.6 mmol/L Normal [facility] Comment on above: Performed By: #### B CONSUMER SALES REPRESENTATIVE, CMP ####[facility] Wonizjpfby[address] [place], [place] [address]Dr. Villa Yanes AST [Catalytic activity/Vol] 13 U/L Critically low 15-37 [facility] Comment on above: Performed By: #### B CONSUMER SALES REPRESENTATIVE, CMP ####[facility] G[address]mhqf[address] [place], [place] [address]Dr. Villa Yanes Bilirubin [Mass/Vol] 0.3 mg/dL Normal 0.2-1.0 [facility] Comment on above: Performed By: #### B CONSUMER SALES REPRESENTATIVE, CMP ####[facility] [address]ipmtcl[address] [place] [address]Dr. Villa Yanes Calcium [Mass/Vol] 9.0 mg/dL Normal 8.5-10.1 [facility] Comment on above: Performed By: #### B CONSUMER SALES REPRESENTATIVE, CMP ####[facility] Fnxlorlbtj[address] [place], [place] [address]Dr. Villa Yanes Chloride [Moles/Vol] 102 mmol/L Normal 98-107 [facility] Comment on above: Performed By: #### B CONSUMER SALES REPRESENTATIVE, CMP ####[facility] Lvbmmeshhy[address] [place], [place] [address]Dr. Villa Joaquín CO2 [Moles/Vol] 29.5 mmol/L Normal 21.0-32.0 [facility] Comment on above: Performed By: #### B CONSUMER SALES REPRESENTATIVE, CMP ####[facility] Qrphhfspjo[address] [place], [place] [address]Dr. Villa Joaquín Creatinine [Mass/Vol] 1.49 mg/dL Critically high 0.70-1.30 [facility] Comment on above: Performed By: #### B CONSUMER SALES REPRESENTATIVE, CMP ####[facility] Xubvlkgw[address] [place], [place] [address]Dr. Villa Yanes EGFR-AF RUSSIAN 55 mL/min/1.73m2 Critically low >=60 [facility] Comment on above: Performed By: #### B CONSUMER SALES REPRESENTATIVE, CMP ####[facility] Fe[address]cpzad[address] [place], [place] [address]Dr. Villa Yanes EGFR-NON AF RUSSIAN 45 mL/min/1.73m2 Critically low >=60 [facility] Comment on above: Performed By: #### B CONSUMER SALES REPRESENTATIVE, CMP ####[facility] Mqsmbrukum[address] [place], [place] [address]Dr. Villa Yanes Globulin (S) [Mass/Vol] 4.2 g/dL Normal [facility] Comment on above: Performed By: #### B CONSUMER SALES REPRESENTATIVE, CMP ####[facility] Y[address]athpqxo[address] [place], [place] [address]Dr. Villa Yanes Glucose [Mass/Vol] 157 mg/dL Critically high 74-106 [facility] Comment on above: Performed By: #### B CONSUMER SALES REPRESENTATIVE, CMP ####[facility] [address] [place], [place] [address]Dr. Villa Yanes Potassium [Moles/Vol] 4.1 mmol/L Normal 3.5-5.1 [facility] Comment on above: Performed By: #### B CONSUMER SALES REPRESENTATIVE, CMP ####[facility] Nnmzeddvtj[address] [place], [place] [address]Dr. Villa Yanes Protein [Mass/Vol] 6.3 g/dL Critically low 6.4-8.2 [facility] Comment on above: Performed By: #### B CONSUMER SALES REPRESENTATIVE, CMP ####[facility] [address] [place] [address]Dr. Villa Yanes Sodium [Moles/Vol] 137 mmol/L Normal 136-145 [facility] Comment on above: Performed By: #### B CONSUMER SALES REPRESENTATIVE, CMP ####[facility] [address] [place] [address]Dr. Villa Joaquín Urea nitrogen [Mass/Vol] 26.0 mg/dL Critically high 7.0-18.0 [facility] Comment on above: Performed By: #### B CONSUMER SALES REPRESENTATIVE, CMP ####[facility] [address] [place] [address]Dr. Brooklynkaren Joaquín Urea nitrogen/Creatinine [Mass ratio] 17.4 mg/mg Normal [facility] Comment on above: Performed By: #### B CONSUMER SALES REPRESENTATIVE, CMP ####[facility] [address] [place] [address]Dr. Villa Yanes POINT OF CARE GLUCOSEon 09-21 Glucose [Mass/Vol] 145 mg/dL Critically high 74-106 [facility] Comment on above: Performed By: #### P OCGLUC ####[facility] [address] [place] [address]Dr. Villa Yanes Glucose [Mass/Vol] 163 mg/dL Critically high 74-106 [facility] Comment on above: Performed By: #### P OCGLUC ####[facility] Ezwe[address] [place] [address]Dr. Villa Yanes Glucose [Mass/Vol] 169 mg/dL Critically high 74-106 [facility] Comment on above: Performed By: #### P OCGLUC ####[facility] F[address] [place], [place] [address]Dr. Villa Yanes Tobacco Screening.on 022 Adult depression screening assessment No [facility] [employer] 250 DO Work Phone: Fall risk assessment b) One or more fall s in the last year [facility] [employer] 250 DO Work Phone: Tobacco use status CPHS a) Yes [facility] marika 250 DO Work Phone: Tobacco Screening. Yes [facility] marika 250 DO Work Phone: Vital Signs Date Time Vital Sign Value Performing Clinician Facility 02-04-2023 11:57-0400 Body height 180.34 cm Micheal M Hoy Work Phone: [facility] 250 DO Work Phone: 02-04-2023 11:57-0400 Body mass index (BMI) [Ratio] 19.53 kg/m2 Micheal M Hoy Work Phone: [facility] 250 DO Work Phone: 02-04-2023 11:57-0400 Body surface area Derived from formula 1.81 m2 Micheal M Hoy Work Phone: [facility] 250 DO Work Phone: 02-04-2023 11:57-0400 Body weight 63.5 kg Micheal M Hoy Work Phone: [facility] 250 DO Work Phone: 02-04-2023 11:57-0400 Diastolic blood pressure 62 mm[Hg] Micheal M Hoy Work Phone: [facility] 250 DO Work Phone: 02-04-2023 11:57-0400 Heart rate 62 /min Micheal M Hoy Work Phone: [facility] 250 DO Work Phone: 02-04-2023 11:57-0400 Systolic blood pressure 140 mm[Hg] Micheal M Hoy Work Phone: [facility] 250 DO Work Phone: 11-26-2022 00:00-0400 55 1 Micheal M Hoy Work Phone: [facility] 250 DO Work Phone: Comment on above: [id number] 11-25-2022 22:09-0400 Body height 180.34 cm MD Micheal Gutiérrez Work Phone: [facility] 11-25-2022 22:09-0400 Body temperature 98.1 [degF] MD Micheal Gutiérrez Work Phone: [facility] 11-25-2022 22:09-0400 Body weight 56.9 kg MD Micheal Gutiérrez Work Phone: [facility] 11-25-2022 22:09-0400 Diastolic blood pressure 94 mm[Hg] MD Micheal Gutiérrez Work Phone: [facility] 11-25-2022 22:09-0400 Heart rate 69 /min MD Micheal Gutiérrez Work Phone: [facility] 11-25-2022 22:09-0400 Respiratory rate 18 /min MD Micheal Gutiérrez Work Phone: [facility] 11-25-2022 22:09-0400 SaO2% (BldA) [Mass fraction] 94 % MD Micheal Gutiérrez Work Phone: [facility] 11-25-2022 22:09-0400 Systolic blood pressure 177 mm[Hg] MD Micheal Gutiérrez Work Phone: [facility] 08-04-2022 11:02-0400 Body height 180.34 cm Micheal Dick Torsteny Work Phone: [facility] 250 DO Work Phone: 08-04-2022 11:02-0400 Body mass index (BMI) [Ratio] 17.71 kg/m2 Michealkiersten Sarmientoy Work Phone: [facility] 250 DO Work Phone: 08-04-2022 11:02-0400 Body surface area Derived from formula 1.74 m2 Michealkiersten Sarmientoy Work Phone: [facility] 250 DO Work Phone: 08-04-2022 11:02-0400 Body weight 57.61 kg Micheal M Hoy Work Phone: [facility] 250 DO Work Phone: 08-04-2022 11:02-0400 Diastolic blood pressure 60 mm[Hg] Micheal M Hoy Work Phone: [facility] 250 DO Work Phone: 08-04-2022 11:02-0400 Heart rate 82 /min Micheal M Hoy Work Phone: [facility] 250 DO Work Phone: 08-04-2022 11:02-0400 Systolic blood pressure 120 mm[Hg] Micheal M Hoy Work Phone: [facility] 250 DO Work Phone: 03-12-2022 12:03-0400 Body height 180.34 cm Micheal M Hoy Work Phone: [facility] 250 DO Work Phone: 03-12-2022 12:03-0400 Body mass index (BMI) [Ratio] 19.67 kg/m2 Micheal M Hoy Work Phone: [facility] 250 DO Work Phone: 03-12-2022 12:03-0400 Body surface area Derived from formula 1.82 m2 Micheal M Hoy Work Phone: [facility] 250 DO Work Phone: 03-12-2022 12:03-0400 Body weight 63.96 kg Micheal M Hoy Work Phone: [facility] 250 DO Work Phone: 03-12-2022 12:03-0400 Diastolic blood pressure 64 mm[Hg] Micheal M Hoy Work Phone: [facility] 250 DO Work Phone: 03-12-2022 12:03-0400 Heart rate 64 /min Micheal Dick Hoy Work Phone: [facility] 250 DO Work Phone: 03-12-2022 12:03-0400 Systolic blood pressure 134 mm[Hg] Micheal Dick Hoy Work Phone: [facility] 250 DO Work Phone: 02-17-2022 15:33-0400 Body height 180.34 cm Micheal Dick Hoy Work Phone: [facility] 250 DO Work Phone: 02-17-2022 15:33-0400 Body mass index (BMI) [Ratio] 19.72 kg/m2 Micheal Dick Hoy Work Phone: [facility] 250 DO Work Phone: 02-17-2022 15:33-0400 Body surface area Derived from formula 1.82 m2 Micheal Dick Hoy Work Phone: [facility] 250 DO Work Phone: 02-17-2022 15:33-0400 Body weight 64.13 kg Micheal Dick Hoy Work Phone: [facility] 250 DO Work Phone: 02-17-2022 15:33-0400 Diastolic blood pressure 70 mm[Hg] Micheal M Hoy Work Phone: [facility] 250 DO Work Phone: 02-17-2022 15:33-0400 Heart rate 80 /min Micheal M Hoy Work Phone: [facility] 250 DO Work Phone: 02-17-2022 15:33-0400 Systolic blood pressure 124 mm[Hg] Micheal M Hoy Work Phone: [facility] 250 DO Work Phone: 2022 14:04-0400 Body height 170.8 cm Billie Guan MD Work Phone: [facility] 2022 14:04-0400 Body weight 62.14 kg Billie Guan MD Work Phone: [facility] 2022 14:04-0400 Diastolic blood pressure 76 mm[Hg] Billie Guan MD Work Phone: [facility] 2022 14:04-0400 Heart rate 78 /min Billie Guan MD Work Phone: [facility] 2022 14:04-0400 Systolic blood pressure 124 mm[Hg] Billie Guan MD Work Phone: [facility] 01-12-2022 11:28-0400 Body height 180.34 cm Micheal M Hoy Work Phone: [facility] 250 DO Work Phone: 01-12-2022 11:28-0400 Body mass index (BMI) [Ratio] 18.69 kg/m2 Micheal M Hoy Work Phone: [facility] 250 DO Work Phone: 01-12-2022 11:28-0400 Body surface area Derived from formula 1.78 m2 Micheal M Hoy Work Phone: [facility] 250 DO Work Phone: 01-12-2022 11:28-0400 Body weight 60.78 kg Micheal M Hoy Work Phone: [facility] 250 DO Work Phone: 01-12-2022 11:28-0400 Diastolic blood pressure 52 mm[Hg] Micheal M Hoy Work Phone: [facility] 250 DO Work Phone: 01-12-2022 11:28-0400 Heart rate 96 /min Micheal Gutiérrez Work Phone: [facility] 250 DO Work Phone: 01-12-2022 11:28-0400 Systolic blood pressure 100 mm[Hg] Micheal Gutiérrez Work Phone: [facility] 250 DO Work Phone: 12-31-2021 12:26-0400 Body temperature 98.4 [degF] Wanchana Sachai [employer] Work Phone: [facility] 12-31-2021 12:26-0400 Diastolic blood pressure 85 mm[Hg] Wanchana Sachai [employer] Work Phone: [facility] 12-31-2021 12:26-0400 Heart rate 67 /min Wanchana Sachai [employer] Work Phone: [facility] 12-31-2021 12:26-0400 SaO2% (BldA) [Mass fraction] 98 % Wanchana Sachai [employer] Work Phone: [facility] 12-31-2021 12:26-0400 Systolic blood pressure 138 mm[Hg] Wanchana Sachai [employer] Work Phone: [facility] 12-31-2021 09:48-0400 Body height 170.8 cm Idris Hawk MD Work Phone: [facility] 12-31-2021 09:48-0400 Body temperature 97.5 [degF] Idris Hawk MD Work Phone: [facility] 12-31-2021 09:48-0400 Body weight 58.92 kg Idris Hawk MD Work Phone: [facility] 12-31-2021 09:48-0400 Diastolic blood pressure 57 mm[Hg] Idris Hawk MD Work Phone: [facility] 12-31-2021 09:48-0400 Heart rate 93 /min Idris Hawk MD Work Phone: [facility] 12-31-2021 09:48-0400 Respiratory rate 24 /min Idris Hawk MD Work Phone: [facility] 12-31-2021 09:48-0400 SaO2% (BldA) [Mass fraction] 99 % Idris Hawk MD Work Phone: [facility] 12-31-2021 09:48-0400 Systolic blood pressure 104 mm[Hg] Idris Hawk MD Work Phone: [facility] 11-27-2021 13:06-0400 Body height 180.3 cm Alissa Arrigon [employer] Work Phone: [facility] 11-27-2021 13:06-0400 Body weight 58.88 kg Alissa Arrigon [employer] Work Phone: [facility] 11-27-2021 13:06-0400 Diastolic blood pressure 63 mm[Hg] Alissa Arrigon [employer] Work Phone: [facility] 11-27-2021 13:06-0400 Heart rate 97 /min Alissa Arrigon [employer] Work Phone: [facility] 11-27-2021 13:06-0400 Systolic blood pressure 125 mm[Hg] Alissa Arrigon [employer] Work Phone: [facility] 11-04-2021 09:45-0400 60 1 Micheal M Hoy Work Phone: [facility] 250A [place] Work Phone: Comment on above: [id number] 09-11-2021 10:19-0400 Body height 180.34 cm Micheal M Hoy Work Phone: [facility] 250 DO Work Phone: 09-11-2021 10:19-0400 Body mass index (BMI) [Ratio] 20.92 kg/m2 Micheal M Hoy Work Phone: [facility] 250 DO Work Phone: 09-11-2021 10:19-0400 Body surface area Derived from formula 1.87 m2 Micheal M Hoy Work Phone: [facility] 250 DO Work Phone: 09-11-2021 10:19-0400 Body weight 68.04 kg Micheal M Hoy Work Phone: [facility] 250 DO Work Phone: 09-11-2021 10:19-0400 Diastolic blood pressure 69 mm[Hg] Micheal M Hoy Work Phone: [facility] 250 DO Work Phone: 09-11-2021 10:19-0400 Heart rate 77 /min Micheal M Hoy Work Phone: [facility] 250 DO Work Phone: 09-11-2021 10:19-0400 Systolic blood pressure 101 mm[Hg] Micheal M Hoy Work Phone: [facility] 250 DO Work Phone: Encounters Encounter Date Encounter Type Care Provider Facility Start: 02-04-2023 Office outpatient vi sit 25 minutes Micheal M Hoy Work Phone: [facility] 250 DO Work Phone: Start: 02-04-[address] Lauro Collins Facility: Start: 11-27-[address] Micheal Gutiérrez Facility:[id number] Start: 11-26-[address] Micheal Gutiérrez Facility:[id number] Start: 11-25-2022 End: 11-30-2022 Evaluation and management of inpatient Rosie Mischler Facility:[facility] Start: 11-25-2022 Evaluation and management of inpatient MD Micheal Gutiérrez Work Phone: [facility] [place] [facility] Work Phone: Start: 10-05-2022 End: 10-05-2022 ambulatory ANAHY CHAUDHRY . Facility:[facility] Start: 09-11-2022 End: 09-12-[address] RANGEL MCGOVERN . Facility:[facility] Start: 09-10-2022 ambulatory DEVON SILVESTRE . Facili ty:[facility] Start: 08-17-2022 End: 08-18-[address] MICHEAL GUTIÉRREZ . Facility:[facility] Start: 08-04-2022 Office outpatient vi sit 25 minutes Micheal Gutiérrez Work Phone: [facility] 250 DO Work Phone: Start: 08-04-[address] Lauro Collins Facility: Start: 07-30-2022 End: 07-31-[address] MICHEAL GUTIÉRREZ . Facility:[facility] Start: 07-28-2022 End: 07-29-2022 ambulatory MYNOR TEIXEIRAMIGREGORY . Facility:[facility] Start: 07-16-2022 End: 07-17-2022 ambulatory MYNOR TEIXEIRAMIPATHBraydon . Facility:[facility] Start: 07-13-2022 Telephone encounter Micheal Gutiérrez Work Phone: [facility] 250 DO Work Phone: Start: 07-10-2022 End: 07-10-2022 ambulatory Hansel Otero PA-C Work Phone: General Surgery Comment on above: S/P percutaneous end oscopic gastrostomy (PEG) tube placement (HCC) (Primary Dx) Start: 07-10-2022 End: 07-10-2022 Telemedicine consultation with patient Hansel Otero PA-C Work Phone: [facility] Start: 07-01-2022 End: 07-01-2022 ambulatory [...] 40 minutes Micheal M Hoy Work Phone: [facility] 250 DO Work Phone: Start: 02-20-2022 End: 02-20-2022 ambulatory MICHEAL GUTIÉRREZ Facility:[facility] Start: 02-17-2022 Office outpatient vi sit 15 minutes Micheal M Hoy Work Phone: [facility] 250 DO Work Phone: Start: 02-17-2022 Patient encounter procedure Micheal M Hoy Work Phone: [facility] 250 DO Work Phone: Start: 02-17-2022 Refill Alissa Colindres on [employer] Work Phone: Urology Comment on above: Opened In Error Start: 02-02-2022 Encounter for other preprocedural examination BILLIE GUAN [facility] Start: 02-02-2022 End: 02-03-2022 Evaluation and management of inpatient BILLIE Roxanna FREIDA Facility:[facility] Start: 02-02-2022 Telephone encounter Alissa mcqueen APRN.[employer] Work Phone: Urology Comment on above: Medication Problem Start: 01-27-2022 ambulatory Rivka Crespo RN General Surgery Comment on above: 01/28/2022 Start: 01-27-2022 Preprocedural examination done Rivka Crespo RN General Surgery Start: 01-27-2022 Telephone encounter Thu Lancaster RN General Surgery Comment on above: Patient Update Start: 01-24-2022 End: 01-24-2022 ambulatory MICHEAL GUTIÉRREZ Facility:[facility] Start: 2022 End: 01-24-[address] 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 250 DO Work Phone: Start: 01-08-2022 ambulatory Alissa partida [employer].BUTCHER HEAD Work Phone: Urology Comment on above: MBS results Start: 01-05-2022 End: 01-05-2022 ambulatory Micheal Gutiérrez Facility:[facility] Start: 01-05-2022 End: 01-05-2022 Patient encounter procedure MD Micheal Gutiérrez Work Phone: [facility] [place] Start: 01-02-[address] MICHEAL GUTIÉRREZ . Facili ty:[facility]1 Start: 12-31-2021 End: 12-31-2021 Emergency department patient visit MICHEAL GUTIÉRREZ Facility:[facility] Start: 12-31-2021 End: 12-31-2021 ambulatory MICHEAL SARMIENTOBraydon Facility:[facility] Start: 12-31-2021 End: 12-31-2021 Office outpatient new 30 minutes Yadira Frazier [employer].BUTCHER HEAD Work Phone: Walk In Clinic Comment on above: Feeding tube blocked , initial encounter (Primary Dx); SOB (shortness of breath) on exertion; Chronic cough Start: 12-31-2021 End: 12-31-2021 ambulatory MICHEAL GUTIÉRREZ Facility:[facility] Start: 12-31-2021 End: 12-31-2021 Patient encounter procedure Idris Hawk MD Work Phone: Vascular Surg Dept Comment on above: Peripheral arterial disease (HCC) (Primary Dx) Start: 12-24-2021 End: 12-24-2021 ambulatory Michealkiersten Sarmientobraydon Facility:[facility] Start: 12-24-2021 End: 12-24-2021 Discharged Recurring MD Micheal Gutiérrez Work Phone: [facility] Start: 12-19-2021 End: 12-20-[address] MICHEAL GUTIÉRREZ . Facility:[facility] Start: 12-18-2021 End: 12-19-[address] MICHEAL GUTIÉRREZ . Facility:[facility] Start: 12-13-2021 Telephone encounter Brock garcia MD Work Phone: Urology Comment on above: Patient Question Start: 12-04-2021 End: 12-04-2021 ambulatory ALISSA LACKEY Facility:[facility] Start: 12-04-2021 Telephone encounter Alissa mcqueen [employer].BUTCHER HEAD Work Phone: Urology Comment on above: Results Start: 12-03-2021 ambulatory Alissa partida [employer].BUTCHER HEAD Work Phone: Urology Comment on above: Kidney CT Start: 12-02-2021 End: 12-02-2021 ambulatory ALISSA Florencia ARRIGON Facility:[facility] Start: 12-02-2021 End: 12-02-2021 Subsequent hospital visit by physician Karlene [facility] Karla Work Phone: Radiology Comment on above: Renal lesion [N28.9] Start: 11-27-2021 End: 11-28-2021 ambulatory Alissa P Arrigon [employer] E[employer]S.BUTCHER HEAD Work Phone: Urology Start: 11-27-2021 Telephone encounter Micheal Gutiérrez MD Work Phone: NOC Comment on above: Follow Up Phone Call (All Clear) Start: 11-27-2021 End: 11-27-2021 Patient encounter procedure Alissa Torrezn [employer]S.BUTCHER HEAD Work Phone: Urology Comment on above: Urinary retention (P rimary Dx); Renal lesion Start: 11-21-2021 Admission to same day surgery center Micheal Gutiérrez MD Work Phone: [facility] Work Phone: Start: 11-20-2021 Telephone encounter Idris Hawk MD Work Phone: Vascular Surg Dept Comment on above: Appointment Start: 11-19-2021 Telephone encounter [facility] Work Phone: Start: 11-11-2021 Chart Update Micheal Gutiérrez Work Phone: [facility] 250 DO Work Phone: Start: 11-11-[address] SHUKRI HONG . Facility: Start: 11-10-[address] [facility] Work Phone: Start: 11-09-2021 End: 11-20-2021 Evaluation and management of inpatient [facility] Facility:[facility] Start: 11-04-2021 Patient encounter procedure Micheal Gutiérrez Work Phone: [facility] [facility] [place] Work Phone: Start: 10-28-2021 End: 10-28-[address] MICHEAL GUTIÉRREZ . Facility: Start: 09-23-2021 AUDIT Micheal Gutiérrez Work Phone: [facility] 250 DO Work Phone: Start: 09-11-2021 Office outpatient vi sit 40 minutes Micheal Gutiérrez Work Phone: [facility] 250 DO Work Phone: Start: 04-20-2018 End: 04-21-2018 Patient encounter procedure DEFAULT PHYSICIAN Facility:[facility] Procedures Date Procedure Procedure Detail Performing Clinician Start: 11-25-2022 Plain chest X-ray MD Micheal Gutiérrez Work Phone: Start: 12-02-2021 Ct abdomen w/o & w/contrast material Alissa Lackey APRN.BUTCHER HEAD Work Phone: Start: 11-15-2021 Antibody screen MICHEAL GUTIÉRREZ Comment on above: Order Comment: Specimen Type: BLOOD SPEC IMENOrdering Facility: [facility] Address: [address] [place] [address] Performed By: #### T SCR ####CC MAIN BLOOD BANKCLIA [id number] [address] Start: 11-10-2021 Antibody screen MICHEAL GUTIÉRREZ Comment on above: Order Comment: Specimen Type: BLOOD SPEC IMENOrdering Facility: [facility] Address: [address] [place] [address] Performed By: #### T SCR ####CC MAIN BLOOD BANKCLIA [id number] [address] Start: 11-10-2021 History of percutaneous transluminal [...] Author Start: 02-03-2025 DIABETES SCREEN DIABETES SCREEN [facility] Start: 11-14-2024 DIABETES SCREEN DIABETES SCREEN [facility] Start: 08-05-2023 FUV, Provider: Lauro Collins, Status: Pen, Time: 11:10 AM FUV, Provider: Lauro Collins, Status: Pen, Time: 11:10 AM [facility] 250 DO Work Phone: Start: 01-22-2023 Influenza vaccination INFLUENZA (#1) [facility] Start: 01-05-2023 FUV, Provider: Lauro Collins, Status: Pen, Time: 2:50 PM FUV, Provider: Lauro Collins, Status: Pen, Time: 2:50 PM [facility] 250 DO Work Phone: Start: 12-31-2022 ANNUAL PCP TEAM LACE CUTTER CRISTY DISEASE VISIT ANNUAL PCP TEAM CHRONIC DISEASE VISIT [facility] Start: 11-26-2022 Blood chemistry [facility] Start: 11-26-2022 [facility] Start: 11-25-2022 End: 11-25-2022 [facility] Start: 11-25-2022 Physical therapy procedure [facility] Start: 11-25-2022 Referral to disaster response director [facility] Start: 11-25-2022 Referral to occupational therapist [facility] Start: 11-25-2022 Hospital admission [facility] Start: 11-25-2022 Bacteria identified in Blood by Culture [facility] Start: 08-04-2022 FUV, Provider: Lauro Collins, Status: Pen, Time: 10:30 AM FUV, Provider: Lauro Collins, Status: Pen, Time: 10:30 AM -[facility] 250 DO Work Phone: Start: 05-24-2022 ADVANCE DIRECTIVE DISCUSSION ADVANCE DIRECTIVE DISCUSSION [facility] Start: 05-24-2022 DEPRESSION ASSESSMENT DEPRESSION ASS ESSMENT [facility] Start: 03-12-2022 FUV, Provider: Lauro Collins, Status: Pen, Time: 11:40 AM FUV, Provider: Lauro Collins, Status: Pen, Time: 11:40 AM -[facility] 250 DO Work Phone: Start: 03-11-2022 FUV, Provider: Lauro Collins, Status: Pen, Time: 10:40 AM FUV, Provider: Lauro Collins, Status: Pen, Time: 10:40 AM -[facility] 250 DO Work Phone: Start: 01-27-2022 FUV, Provider: Rochelle Herrmann, Status: Pen, Time: 3:30 PM FUV, Provider: Rochelle Herrmann, Status: Pen, Time: 3:30 PM -[facility] 250 DO Work Phone: Start: 01-22-2022 Influenza vaccination INFLUENZA (#1) [facility] Start: 12-04-2021 End: 02-03-2022 Bacteria identified in Urine by Culture URINE CULTURE Microbiology Routine Cloudy urine Expected: 12/04/2021, Expires: 02/03/2022 [facility] Work Phone: Comment on above: Expected: 12/04/2021 , Expires: 02/03/2022 Start: 11-04-2021 PVR, Provider: KIMU MAIRKA [facility]TR[facility] 01,[id number], Status: Pen, Time: 10:45 AM PVR, Provider: HERIBERTO [facility] 01,[id number], Status: Pen, Time: 10:45 AM [facility] Work Phone: Start: 11-04-2021 ECHO, Provider: [facility] 01,[id number], Status: Pen, Time: 9:45 AM ECHO, Provider: [facility] 01,[id number], Status: Pen, Time: 9:45 AM [facility] Work Phone: Start: 10-08-2021 PVR, Provider: KIMAndrés MARIKA [facility] 01,[id number], Status: Pen, Time: 10:45 AM PVR, Provider: HERIBERTO [facility] 01,[id number], Status: Pen, Time: 10:[address] [facility] 250 DO Work Phone: Start: 10-08-2021 ECHO, Provider: HERIBERTO [facility] 01,[id number], Status: Pen, Time: 9:45 AM ECHO, Provider: [facility]ERT[facility] 01,[id number], Status: Pen, Time: 9:[address] [facility] 250 DO Work Phone: Start: 07-30-2021 COVID-19 VACCINE (4 - Booster for Moderna series) COVID-19 VACCINE (4 - Booster for Moderna series) [facility] Start: 05-27-2021 COVID-19 VACCINE (4 - Booster for Moderna series) COVID-19 VACCINE (4 - Booster for Moderna series) [facility] Start: 05-27-2021 COVID-19 VACCINE (4 - Moderna series) COVID-19 VACCINE (4 - Moderna series) [facility] Start: 05-24-2021 ADVANCE DIRECTIVE DISCUSSION ADVANCE DIRECTIVE DISCUSSION [facility] Start: 05-24-2021 DEPRESSION ASSESSMENT DEPRESSION ASS ESSMENT [facility] Start: 2007 PNEUMOCOCCAL: 65+ (1 - PCV) PNEUMOCOCCAL: 65+ (1 - PCV) [facility] Start: 01-24-1992 SHINGRIX VACCINE (1 of 2) SHINGRIX VACCINE (1 of 2) [facility] Start: 1961 Urine microalbumin profile DTAP,TDAP,TD (1 - Tdap) [facility] Start: 01-24-1960 ANNUAL PCP TEAM LACE CUTTER CRISTY DISEASE VISIT ANNUAL PCP TEAM CHRONIC DISEASE VISIT [facility] Start: 01-24-1960 Hepatitis B surface antibody level LDL CHOLESTEROL [facility] Start: 1954 Adult depression screening assessment DEPRESSION SCREENING [facility] Start: 01-24-1948 PNEUMOCOCCAL: 65+ (1 - PCV) PNEUMOCOCCAL: 65+ (1 - PCV) [facility] End: 12-27-2022 Ct abdomen w/o & w/contrast material CT KIDNEY WO/W IVCON Radiology Routine Renal lesion 1 Occurrences starting 11/27/2021 until 12/27/2022 [facility] Work Phone: Comment on above: 1 Occurrences starti ng 11/27/2021 until 12/27/2022 End: 01-03-2023 Mri abdomen w/o & w/contrast material MRI KIDNEY WO/W IVCON Radiology Routine Other specified disorders of kidney and ureter 1 Occurrences starting 12/04/2021 until 01/03/2023 [facility] Work Phone: Comment on above: 1 Occurrences starti ng 12/04/2021 until 01/03/2023 URINALYSIS, REFLEX MICROSCOPIC URINALYSIS, REFLEX MICROSCOPIC Lab Routine Screening for genitourinary condition Ordered: 11/27/2021 [facility] Work Phone: Comment on above: Ordered: 11/27/2021 URINALYSIS, REFLEX MICROSCOPIC URINALYSIS, REFLEX MICROSCOPIC Lab Routine Screening for genitourinary condition Ordered: 12/03/2021 [facility] Work Phone: Comment on above: Ordered: 12/03/2021 [facility] Immunizations Immunization Date Immunization Notes Care Provider Reji prieto 03-05-2022 influenza, high dose seasonal, preservative-free Micheal M Hoy Work Phone: [facility] 250 DO Work Phone: Comment on above: Series: 04-01-2021 Moderna COVID-19 Vac cine 100 MCG/0.5ML Intramuscular Suspension Micheal M Hoy Work Phone: [facility] Work Phone: 03-13-2021 influenza, injectabl e, quadrivalent, preservative free Micheal M Hoy Work Phone: [facility] 250 DO Work Phone: Comment on above: Series: 02-17-2021 Seasonal trivalent influenza vaccine, adjuvanted, preservative free Micheal M Hoy Work Phone: [facility] Work Phone: 08-22-2020 pneumococcal polysaccharide vaccine, 23 valent Micheal M Hoy Work Phone: [facility] 250 DO Work Phone: Comment on above: Series: 07-19-2020 Moderna COVID-19 Vac cine 100 MCG/0.5ML Intramuscular Suspension Micheal M Hoy Work Phone: [facility] Work Phone: 06-21-2020 Moderna COVID-19 Vac cine 100 MCG/0.5ML Intramuscular Suspension Micheal M Hoy Work Phone: [facility] Work Phone: 03-06-2020 influenza, high dose seasonal, preservative-free Micheal M Hoy Work Phone: [facility] Work Phone: 02-23-2020 Seasonal trivalent influenza vaccine, adjuvanted, preservative free Micheal M Hoy Work Phone: [facility] Work Phone: 04-06-2018 influenza, injectabl e, quadrivalent, preservative free Micheal M Torsteny Work Phone: [facility] Work Phone: 02-28-2018 tetanus and diphther ia toxoids, adsorbed, preservative free, for adult use (5 Lf of tetanus toxoid and 2 Lf of diphtheria toxoid) Micheal Sarmientoy Work Phone: [facility] Work Phone: 07-12-2017 influenza, injectabl e, quadrivalent, preservative free Micheal M Hoy Work Phone: [facility] Work Phone: 04-07-2017 zoster vaccine, live Micheal Jennings Hobraydon Work Phone: [facility] Work Phone: 02-15-2017 influenza, high dose seasonal, preservative-free Micheal M Torsteny Work Phone: [facility] Work Phone: 02-15-2017 pneumococcal conjuga te vaccine, 13 valent Micheal M Torsteny Work Phone: [facility] Work Phone: 05-24-2016 pneumococcal conjuga te vaccine, 13 valent Micheal M Hoy Work Phone: [facility] Work Phone: 03-04-2016 influenza, injectabl e, quadrivalent, preservative free Micheal M Hoy Work Phone: [facility] Work Phone: 07-29-2015 influenza, injectabl e, quadrivalent, preservative free Micheal M Hoy Work Phone: [facility] Work Phone: 03-06-2015 pneumococcal polysaccharide vaccine, 23 valent Micheal M Hoy Work Phone: [facility] Work Phone: 01-03-2015 tetanus toxoid, redu mark diphtheria toxoid, and acellular pertussis vaccine, adsorbed Micheal M Marla Work Phone: [facility] Work Phone: 05-09-2009 novel influenza-H1N1 -09, preservative-free, injectable Micheal Gutiérrez Work Phone: [facility] Work Phone: Payers Date Payer Category Payer Medicare [id number] 2021 Self-pay [id number] 2021 [place] [id number] 2021-Present [phone] [address] [place] [address] Medicaid [id number] 2021 [place] [id number] 2021-Present [phone] [address] [place] [address] Medicaid [id number] 2020 Unknown 2020 Unknown ANTHEM BLUE CROS S AND BLUE SHIELD ANTHEM MEDIBLUE HMO [id number] 2020-Present [phone] [address] [place] [address] O [id number]. [id number] 1959 Medicaid [id number] 1959 Medicare [id number] 1959 Self-pay [id number] 1942 Unknown [id number] 2.16.840.1.766266.3.579.2.647 1942 Unknown [id number] 2.16.840.1.264396.3.579.2.593 1942 Unknown [id number] 2.16.840.1.715614.3.579.2.593 1942 Unknown [id number] 2.16.840.1.373451.3.579.2.593 1942 Unknown [id number] 2.16.840.1.711917.3.579.2.593 1942 Unknown [id number] 2.16.840.1.144660.3.579.2.593 1942 Unknown [id number] 2.16.840.1.848348.3.579.2.593 1942 Unknown [id number] 2.16.840.1.458513.3.579.2.593 1942 Unknown [id number] 2.16.840.1.066180.3.579.2.593 1942 Unknown [id number] 2.16.840.1.614624.3.579.2.593 1942 Unknown [id number] 2.16.840.1.804828.3.579.2.593 1942 Unknown [id number] 2.16.840.1.513973.3.579.2.593 1942 Unknown [id number] 2.16.840.1.243042.3.579.2.593 1942 Unknown [id number] 2.16.840.1.439303.3.579.2.593 1942 Unknown [id number] 2.16.840.1.217600.3.579.2.593 1942 Unknown [id number] 2.16.840.1.606580.3.579.2.593 1942 Unknown [id number] 2.16.840.1.243452.3.579.2.593 1942 Unknown [id number] 2.16.840.1.466683.3.579.2.593 1942 Unknown [id number] 2.16.840.1.255405.3.579.2.593 1942 Unknown [id number] 2.16.840.1.105234.3.579.2.593 1942 Unknown [id number] 2.16.840.1.096406.3.579.2.593 1942 Unknown [id number] 2.16.840.1.942910.3.579.2.593 1942 Unknown [id number] 2.16.840.1.568144.3.579.2.593 1942 Unknown [id number] 2.16.840.1.278729.3.579.2.593 1942 Unknown [id number] 2.16.840.1.913710.3.579.2.593 1942 Unknown [id number] 2.16.840.1.980084.3.579.2.593 1942 Unknown [id number] 2.16.840.1.093038.3.579.2.356 1942 Unknown [id number] 2.16.840.1.457188.3.579.2.356 1942 Unknown [id number] 2.16.840.1.306615.3.579.2.356 1942 Unknown [id number] 2.16.840.1.086885.3.579.2.356 1942 Unknown [id number] 2.16.840.1.676251.3.579.2.356 1942 Unknown [id number] 2.16.840.1.776727.3.579.2.356 1942 Unknown [id number] 2.16.840.1.037860.3.579.2.356 Medicare Medicare [id number] Medicare Medicare Outpatient [id number] Medicare [id number] Unknown [id number] 2.16.840.1.751666.3.579.2.531 Unknown [id number] 2.16.840.1.894674.3.579.2.531 Unknown [id number] 2.16.840.1.254716.3.579.2.531 Social History Date Type Detail Facility Start: 11-10-2021 End: 11-27-2021 No illicit drug use No illicit drug use [facility] [facility] DO Work Phone: Comment on above: some tea; 5 cigarettes; 1 ppd; Start: 07-07-2021 [facility] consumption unknown [facility] Start: 1940 Sex Assigned At Male [facility] Start: 11-01-2021 End: 02-02-2022 Exposure to SARS-CoV-2 (event) Not sure [facility] Start: 11-27-2021 End: 12-31-2021 Tobacco smoking status MSIS Smokes tobacco daily [facility] Start: 11-27-2021 End: 12-31-2021 Tobacco use and exposure Former smokeless tobacco user [facility] Start: 11-25-2022 Tobacco [facility] Start: 11-10-2021 End: 11-27-2021 Tobacco use panel [facility] National Score (1-10 0), lower number is lower risk 83 [facility] Start: 11-16-2021 Gender identity Identifies as male gender (finding) [facility] Start: 11-16-2021 Sexual orientation Heterosexual (ángel colmenares) [facility] Medical Equipment Procedure Code Equipment Code Equipment Origin al Text Equipment Identifier Dates use 1 TEST STRIP to TEST BLOOD SUGAR twice a day Start: 12-13-2021 Comment on above: use 1 TEST STRIP to TEST BLOOD SUGAR twice a day Drug-eluting coronary artery stent, non-bioabsorbable- polymer-coated [id number] FDA Start: 07-08-2021 Kit Endovive 20f r Standard Gibson Silicone Peg Pull Method Drea - [id number] Start: 02-02-2022 Clinical Notes 11-10-2021 to 07-28-2022 Hansel Otero PA-C - 07/10/2022 2:14 PM ESTTelephone Encounter - Alissa Lackey C[employer] EGG[employer].NADER - 02/02/2022 2:58 PM EDTTelephone Encounter - Thu Lancaster RN - 01/27/2022 8:21 PM EDT Note Date & Type Note Facility 07-28-2022 Note [facility] 07-28-2022 Note [facility] 07-16-2022 Note [facility] 07-16-2022 Note [facility] 07-10-2022 Note [facility] 07-10-2022 History of Presen t illness [...] TIME: 2:14 PM documented in this encounter [facility] 02-20-2022 Note [facility] 02-03-2022 Note [facility] 02-03-2022 Note HNO ID: [id number] Author: Elva Farias RN Service: Nursing Author Type: Registered Nurse Type: Nursing Progress Note Filed: 02/03/2022 6:30 AM Note Text: Patient refused turn and ambulation and was educated on benefits. [facility] 02-03-2022 Note [facility] 02-02-2022 Note [facility] 02-02-2022 Miscellaneous Notes Talked with Farideh [...] Alissa Lackey APRN.CNP documented in this encounter [facility] 01-27-2022 Miscellaneous Notes BMI SPECIALTY CARE [...] NPO after midnight. documented in this encounter [facility] 2022 Note [facility] 2022 History of Presen t illness [...] DATE: 2022 TIME: 2:56 PM PAGER/CONTACT #: [phone] documented in this encounter [facility] 01-12-2022 Miscellaneous Notes Replied to more recent message regarding MBS. Alissa Lackey APRN.CNP documented in this encounter [facility] 12-31-2021 Note [facility] 12-31-2021 Nurse Note Franki Hernandez is [...] Naveed Nicholson LPN documented in this encounter [facility] 12-31-2021 History of Presen t illness Narrative Images from the original note were not included. [facility] [place] Department of General Internal Medicine [facility] Outpatient Visit Date: December 31, 2021 CC: Patient presents with: Physiological Problem - GI HPI:Franki Hernandez is a 81 year old male who presents today to the internal medicine department 0 walk in clinic for a complains of list above. 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 Hx angiogram with intervention at [facility] in [place] with bilateral iliac stents and R EIA stent in 2009 (reports not currently available). PCP: Micheal Gutiérrez MD, MD Last visit: Patient [place] from [facility]. He is here with his daughter who provides most of patient's history. Patient has difficulty swallowing , has h/o throat cancer ~ 25 years. His daughter reports 5 years ago, he had a partial resection of epiglottis. 07/06/2021 - he had a massive SD, intubation was difficulty and his throat muscle was stretching. He was on thick liquid and got aspiration PNA, he then got admitted and hospitalization. They decided to put him on NG tube. He started loosing weights ~ 60 lbs. They decided to give him a peg tube , but it was accidentally placed on his colon at [facility] in [place]. States he almost . 11/09/2021- they drove [...] States he saw the speech therapist at [facility] and was told that [...] Myocardial infarction (HCC) PAD (peripheral artery disease) ([facility]) Social History Tobacco Use Smoking status: Every Day Smokeless tobacco: Former ACTIVE PROBLEM LIST Diarrhea Severe Protein-Calorie Malnutrition (Hcc) History of SD (Myocardial Infarction) History of Ptca History of Cardiac Arrest Coronary Artery Disease Involving [place] Coronary Artery of [place] Heart Without Angina Pectoris Encounter for Preoperative [...] with PCP and Gen surg Yadira Frazier APRN.BUTCHER HEAD I spent a total of 35 minutes on the date of the service which included preparing to see the patient, [id number] patient care, completing clinical documentation, obtaining and/or reviewing separately obtained history, performing a medically appropriate examination, counseling and educating the patient/family/caregiver, and care coordination (not separately reported). documented in this encounter [facility] 12-31-2021 History and physical note Images from the original note were not included. 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 Hx angiogram with intervention at [facility] in [place] with bilateral iliac stents and R EIA [...] old male with hx of COPD, recent SD complicated by arrest and transverse colon injury [...] DATE: December 30, 2021 TIME: 9:02 AM [facility] STAFF PHYSICIAN NOTE OF PERSONAL INVOLVEMENT IN [...] SERVICE: 12:33 PM documented in this encounter [facility] 12-13-2021 Miscellaneous Notes Urology Telephone Note I spoke with pt over the phone today. I explained that her pharmacy does not carry the liquid formation of nitrofurantoin, not does the [facility] in [place]. She reports that she has been able to give him the nitrofurantoin capsules successfully and plans to continue giving it for the rest of the recommended course. Brock Cristina Jr., MD Reconstructive Urology Fellow documented in this encounter [facility] 12-04-2021 Miscellaneous Notes See today's telephone encounter. Alissa Lackey APRN.CNP documented in this encounter [facility] 12-04-2021 Miscellaneous Notes Received prompt call back from daughter. Advised that radiology recommended MRI to further evaluate renal lesion. Instructed her to call [phone] to schedule. Daughter reports that Franki Hernandez cathed after voiding several times, and all PVRs were low (about 45 mL). Advised that they can go ahead and stop ISC. Daughter reports that urine has been cloudy; concerned about infection from having Berry in. Will go to lab at [place] to leave specimen for culture. Daughter reports [...] for daughter, advising that I had seen [employer] messages and CT results. Requested call back at [phone]. Alissa Lackey APRN.BUTCHER HEAD documented in this encounter [facility] 12-02-2021 Note [facility] 12-02-2021 History of Presen t illness [...] TIME: 10:41 AM documented in this encounter [facility] 11-27-2021 Note [facility] 11-27-2021 Instructions Alissa Lackey APRN.CNP - 11/27/2021 2:20 PM EDT Please call me at [phone] if you have trouble with catheters or other questions. Please call radiology at [phone] of kidneys. documented in this encounter [facility] 11-27-2021 History of Presen t illness Narrative [facility] UROLOGICAL [place] STATION NEW PATIENT HISTORY AND PHYSICAL EXAM PATIENT INFO: Franki Hernandez 81 year old REFERRING Roberto.: Dionicio Naqvi [address] [facility] [address] = HISTORY: Franki Hernandez is a 81 [...] and home health services. Daughter lives in [place]. 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 Franki Hernandez and are probably going to go to [place] with daughter next week, possibly through the winter. Daughter has questions about renal lesion noted on CT. Also has questions about follow up labs mentioned in discharge summary. Pantoprazole suspension not covered by insurance. Frederick Nielsen tried to dispense pills, but these can't go through tube. Daughter wants to know if [facility] pharmacy can ship pantoprazole to their [...] fat-containing left inguinal hernia with focal fluid. Whip Operator (topogram) images: No additional findings. = MEDICATIONS: [...] left renal lesion. Reordered pantoprazole suspension to [facility] pharmacy so daughter can investigate availability/pricing/alternativ es. Will message primary team members from discharge summary to let them know that Franki Hernandez needs follow up lab orders. I spent a total of 60 minutes on the date of the service which included preparing to see the patient, [id number] patient care, completing clinical documentation, performing a medically appropriate examination, counseling and educating the patient/family/caregiver, ordering medications, tests, or procedures and communicating with other HCPs (not separately reported). Electronically signed: Alissa Lackey APRN.NADER documented in this encounter [facility] 11-27-2021 Miscellaneous Notes PATIENT INFORMATION Record ID: [id number] Patient Name: [facility]: [facility] [place]: [facility] Attending: Peter Tobar Center: Hospital Medicine INSTRUCTIONS MA to remind patient of appointment date, time, location SURVEY INFORMATION Medical/Nurse Packing Room Worker: Ruth Coronel 1. Your discharge instructions are [...] (Standard Question) No documented in this encounter [facility] 11-20-2021 Miscellaneous Notes Patient has been referred to Dr. Idris Hawk for evaluation and treatment. Patient has been diagnosed with PVD. Records are in Care Everywhere and [facility]. Referral information is in Epic under scanned documents. Please advise if any additional testing is needed prior to scheduling. Best Contact: Juli Rodas Account Collector documented in this encounter [facility] 11-19-2021 Note [facility] 11-18-2021 Note [facility] 11-18-2021 Note [facility] 11-17-2021 Note [facility] 11-17-2021 Note [facility] 11-17-2021 Note [facility] 11-16-2021 Note [facility] 11-16-2021 Note [facility] 11-15-2021 Note [facility] 11-15-2021 Note [facility] 11-14-2021 Note [facility] 11-14-2021 Note [facility] 11-14-2021 Note [facility] 11-13-2021 Note [facility] 11-12-2021 Note [facility] 11-12-2021 Note [facility] 11-12-2021 Note [facility] 11-12-2021 Note [facility] 11-11-2021 Note [facility] 11-11-2021 Note [facility] 11-11-2021 Note [facility] 11-11-2021 Note [facility] 11-10-2021 Note [facility] 11-10-2021 Note [facility] 11-10-2021 Note [facility] 11-10-2021 Note [facility] Evaluation note Diagnosis Urinary retention- Primary Retention of urine, unspecified Renal lesion Unspecified disorder of kidney and ureter [facility] Diagnosis Screening for genitourinary condition Screening for other and unspecified genitourinary condition [facility] [place] [facility] Diagnosis Cloudy urine- Primary Other nonspecific finding on examination of urine [facility] [place] Diagnosis Screening for genitourinary condition Screening for other and unspecified genitourinary condition documented [facility] [place]* Diagnosis Peripheral arterial disease (HCC)- Primary Peripheral vascular disease, unspecified documented in this encounter [facility] note* Diagnosis Feeding tube blocked, initial encounter- Primary SOB (shortness of breath) on exertion Shortness of breath Chronic cough Cough documented [facility] [place]* Diagnosis Other specified disorders of kidney and ureter [facility] [place]* Diagnosis Adult failure to thrive- Primary documented in this encounter [facility] noteNo assessment information [facility] Work Phone: Evaluation note* Diagnosis Adult failure to thrive- Primary Pre-op examination Preoperative examination, unspecified Adult failure to thrive Pre-op examination Preoperative examination, unspecified documented in this encounter [facility] note* Diagnosis S/P percutaneous endoscopic gastrostomy (PEG) tube placement (HCC)- Primary [facility] [place]* Diagnosis Onset Date Resolution Status Acute exacerbation of chroni c obstructive pulmonary disease acute Atrial fibrillation acute Diabetes acute Leukocytosis acute Urinary retention acute [facility] Work Phone: Evaluation note* Diagnosis Renal lesion Unspecified disorder of kidney and ureter [facility]* The patient [...] medication regimen. He denies medication side effects. [facility] [facility] DO Work Phone: History of Present [...] medication regimen. He denies medication side effects. [employer] DO Work Phone: History of Present illness [...] medication regimen. He denies medication side effects. [employer] Work Phone: History of Present illness Narrative* [...] medication regimen. He denies medication side effects. 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 Patient was apparently readmitted to [facility] for dehydration/hypovolemia following his discharge from [facility] details of which are unknown. [...] pneumonia, aspiration pneumonia, heart failure, non-ST elevation SD with subsequent revascularization of the RCA with [...] today proceeded. Patient was apparently readmitted to [facility] for dehydration/hypovolemia following his discharge from [facility] details of which are unknown. [...] pneumonia, aspiration pneumonia, heart failure, non-ST elevation SD with subsequent revascularization of the RCA with [...] today proceeded. Patient was apparently readmitted to [facility] for dehydration/hypovolemia following his discharge from [facility] details of which are unknown. * Patient is lost approximately 50 pounds over the past year due to his acute on chronic illnesses. * Recommendations obtain chemistry panel, BNP, echocardiogram to reassess ventricular function, recommend hydration and nutritional supplementation, will follow-up in 6 months * I was in the hospital at [facility] * FRANKI HERNANDEZ is being seen for a 4 month follow-up of coronary artery disease and cardiomyopathy. * Patient ambulatory with wheeled walker. * Accompanied by daughter. * Evaluated in clinic Dr. Collins August 2021. * October 2021 hospitalized at [facility] d/t malnutrition. Had PEG removed and [...] has had previous high risk non-ST elevation SD earlier this year July 2021, with subsequent revascularization of the RCA with drug-eluting stent and normalization of his LV function originally from 30 now up to 60% as measured by echo at [facility]. He has underlying peripheral vascular disease, ongoing tobacco use, COPD, history of throat cancer with PEG tube. * He underwent recent hospitalization at [facility] with significant weight loss and [...] has had previous high risk non-ST elevation SD earlier this year July 2021, with subsequent revascularization of the RCA with drug-eluting stent and normalization of his LV function originally from 30 now up to 60% as measured by echo at [facility]. He has underlying peripheral vascular disease, ongoing tobacco use, COPD, history of throat cancer with PEG tube. 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 * He has chronic dyspnea from a symptomatic standpoint; we will certified addiction counselor him on tobacco cessation for 3 to 5 minutes today; we will follow-up in 6 months with nurse practitioner with no further changes to his medical regimen at this time Reason for Referral Specialty Diagnoses / Procedures Referred By Joni mitchell Referred To Contact CT IMAGING Diagnoses Renal lesion Procedures CT KIDNEY WO/W IVCON CT ABDOMEN W & W/O CONTRAST Alissa Lackey APRN.BUTCHER HEAD [address] [place] [address] Ct Imaging Referral ID Status Reason Start Date Expiration Date Visits Requested Visits Authorized [id number] Pending Review Auto-Generat ed Referral 11/27/2021 12/27/2022 1 1 Specialty Diagnoses / Procedures Referred By Joni mitchell Referred To Contact MR IMAGING Diagnoses Other specified disorders of kidney and ureter Procedures MRI KIDNEY WO/W IVCON MRI ABDOMEN W/O & W/CONTRAST MATERIAL Alissa Lackey APRN.BUTCHER HEAD [address] [place] [address] Mr Imaging Referral ID Status Reason Start Date Expiration Date Visits Requested Visits Authorized [id number] Authorized Auto-Generat ed Referral 12/04/2021 01/03/2023 1 1 Referral ID Status Reason Start Date Expiration Date V isits Requested Visits Authorized [id number] Closed Auto-Generate d Referral 11/27/2021 12/27/2022 1 [...] section and content) DATE CREATED AUTHOR 05/02/2018 [facility] DATE CREATED AUTHOR AUTHOR'S ORGANIZ ATION 11/09/2021 [facility] DATE CREATED AUTHOR AUTHOR'S ORGANIZ ATION 07/16/2022 [facility] DATE CREATED AUTHOR AUTHOR'S ORGANIZ ATION 10/07/2022 [facility] DATE CREATED AUTHOR AUTHOR'S ORGANIZ ATION 12/11/2022 [facility] DATE CREATED AUTHOR AUTHOR'S ORGANIZ ATION 01/02/2023 [facility] DATE CREATED AUTHOR AUTHOR'S ORGANIZ ATION 02/06/2023 [facility] DATE CREATED AUTHOR AUTHOR'S ORGANIZ ATION 02/06/2023 [employer] Comments (unrecognize d section and content) In the event this informatio n is protected by the Federal Confidentiality of Alcohol and Drug Abuse Patient Records regulations: The Federal rules restrict any use of the information to criminally investigate or prosecute any alcohol or drug abuse patient.[facility] the event this information is protected by the Federal Confidentiality of Alcohol and Drug Abuse Patient Records regulations: The Federal rules restrict any use of the information to criminally investigate or prosecute any alcohol or drug abuse patient.[facility] HospitalIn the event this information is protected by the Federal Confidentiality of Alcohol and Drug Abuse Patient Records regulations: The Federal rules restrict any use of the information to criminally investigate or prosecute any alcohol or drug abuse patient.[facility] HospitalIn the event this information is protected by the Federal Confidentiality of Alcohol and Drug Abuse Patient Records regulations: The Federal rules restrict any use of the information to criminally investigate or prosecute any alcohol or drug abuse patient.[facility] Hospital[facility] the event this information is protected by the Federal Confidentiality of Alcohol and Drug Abuse Patient Records regulations: The Federal rules restrict any use of the information to criminally investigate or prosecute any alcohol or drug abuse patient.[facility] HospitalIn the event this information is protected by the Federal Confidentiality of Alcohol and Drug Abuse Patient Records regulations: The Federal rules restrict any use of the information to criminally investigate or prosecute any alcohol or drug abuse patient.[facility] HospitalIn the event this information is protected by the Federal Confidentiality of Alcohol and Drug Abuse Patient Records regulations: The Federal rules restrict any use of the information to criminally investigate or prosecute any alcohol or drug abuse patient.[facility] HospitalIn the event this information is protected by the Federal Confidentiality of Alcohol and Drug Abuse Patient Records regulations: The Federal rules restrict any use of the information to criminally investigate or prosecute any alcohol or drug abuse patient.[facility] HospitalIn the event this information is protected by the Federal Confidentiality of Alcohol and Drug Abuse Patient Records regulations: The Federal rules restrict any use of the information to criminally investigate or prosecute any alcohol or drug abuse patient.[facility] HospitalIn the event this information is protected by the Federal Confidentiality of Alcohol and Drug Abuse Patient Records regulations: The Federal rules restrict any use of the information to criminally investigate or prosecute any alcohol or drug abuse patient.[facility] HospitalIn the event this information is protected by the Federal Confidentiality of Alcohol and Drug Abuse Patient Records regulations: The Federal rules restrict any use of the information to criminally investigate or prosecute any alcohol or drug abuse patient.[facility] HospitalIn the event this information is protected by the Federal Confidentiality of Alcohol and Drug Abuse Patient Records regulations: The Federal rules restrict any use of the information to criminally investigate or prosecute any alcohol or drug abuse patient.[facility] HospitalIn the event this information is protected by the Federal Confidentiality of Alcohol and Drug Abuse Patient Records regulations: The Federal rules restrict any use of the information to criminally investigate or prosecute any alcohol or drug abuse patient.[facility] HospitalIn the event this information is protected by the Federal Confidentiality of Alcohol and Drug Abuse Patient Records regulations: The Federal rules restrict any use of the information to criminally investigate or prosecute any alcohol or drug abuse patient.[facility] HospitalIn the event this information is protected by the Federal Confidentiality of Alcohol and Drug Abuse Patient Records regulations: The Federal rules restrict any use of the information to criminally investigate or prosecute any alcohol or drug abuse patient.[facility] HospitalIn the event this information is protected by the Federal Confidentiality of Alcohol and Drug Abuse Patient Records regulations: The Federal rules restrict any use of the information to criminally investigate or prosecute any alcohol or drug abuse patient.[facility] HospitalIn the event this information is protected by the Federal Confidentiality of Alcohol and Drug Abuse Patient Records regulations: The Federal rules restrict any use of the information to criminally investigate or prosecute any alcohol or drug abuse patient.[facility] HospitalIn the event this information is protected by the Federal Confidentiality of Alcohol and Drug Abuse Patient Records regulations: The Federal rules restrict any use of the information to criminally investigate or prosecute any alcohol or drug abuse patient.[facility] HospitalIn the event this information is protected by the Federal Confidentiality of Alcohol and Drug Abuse Patient Records regulations: The Federal rules restrict any use of the information to criminally investigate or prosecute any alcohol or drug abuse patient.[facility] Reason for Visit (unrecogniz ed section [...] ABDOMEN W/O & W/CONTRAST MATERIAL Alissa Lackey, [employer].BUTCHER HEAD [address] [place] [address] Mr Imaging Referral ID Status Reason Start Date Expiration Date Visits Requested Visits Authorized [id number] Authorized Auto-Generat ed Referral 12/04/2021 01/03/2023 1 1 Reason Comments Established Patient Reason Comments 01/28/2022 Reason Comments Patient Update Reason Comments Medication Problem Reason Onset Date Comments Opened In Error 02/17/2022 Specialty Diagnoses / Procedures Referred By Joni t Referred To Contact CT IMAGING Diagnoses Renal lesion Procedures CT KIDNEY WO/W IVCON CT ABDOMEN W & W/O CONTRAST Alissa Lackey, [employer].BUTCHER HEAD [address] [place] [address] Ct Imaging Referral ID Status Reason Start Date Expiration Date V isits Requested Visits Authorized [id number] Closed Auto-Generate d Referral 11/27/2021 12/27/2022 1 1 Care Teams (unrecognized sec tion and content) Team Status: Active Member Role Status Dates Micheal Gutiérrez MD Primary Care Provider Active Team Status: Active Member Role Status Dates Micheal Gutiérrez MD Primary Care Provider Active Shukri Francisco MD Emergency Provider Active Jean-Pierre Otero DO Admit Provider, Attending Provider Active Research Food Technologist Relationship Specialty Start Date End Date Micheal Gutiérrez MD [address] [place] [address] PCP - General Family Practice 11/10/21 Research Food Technologist Relationship Specialty Start Date End Date Micheal Gutiérrez MD [address] [place] [address] PCP - General Family Practice 11/10/21 Research Food Technologist Relationship Specialty Start Date End Date Micheal Gutiérrez MD [address] [place] [id number] PCP - General Family Practice 11/10/21 Research Food Technologist Relationship Specialty Start Date End Date Micheal Gutiérrez MD [address] [place] [id number] PCP - General Family Practice 11/10/21 Research Food Technologist Relationship Specialty Start Date End Date Micheal Gutiérrez MD [address] [place] [id number] PCP - General Family Practice 11/10/21 Research Food Technologist Relationship Specialty Start Date End Date Micheal Gutiérrez MD [address] [place] [id number] PCP - General Family Practice 11/10/21 Research Food Technologist Relationship Specialty Start Date End Date Micheal Gutiérrez MD [address] [place] [id number] PCP - General Family Practice 11/10/21 Research Food Technologist Relationship Specialty Start Date End Date Micheal Gutiérrez MD [address] [place] [id number] PCP - General Family Practice 11/10/21 Research Food Technologist Relationship Specialty Start Date End Date Micheal Gutiérrez MD [address] [place] [address] PCP - General Family Practice 11/10/21 Research Food Technologist Relationship Specialty Start Date End Date Micheal Gutiérrez MD [address] [place] [address] PCP - General Family Practice 11/10/21 Research Food Technologist Relationship Specialty Start Date End Date Micheal Gutiérrez MD [address] [place] [address] PCP - General Family Practice 11/10/21 Research Food Technologist Relationship Specialty Start Date End Date Micheal Gutiérrez MD [address] [place] [id number] PCP - General Family Practice 11/10/21 Team Status: Inactive Member Role Status Dates Micheal Gutiérrez MD Primary Care Provider Active Dino Guzman MD Attending Provider Active Research Food Technologist Relationship Specialty Start Date End Date Micheal Gutiérrez MD [address] [id number] PCP - General Family Practice 11/10/21 Research Food Technologist Relationship Specialty Start Date End Date Micheal Gutiérrez MD [address] [id number] PCP - General Family Practice 11/10/21 Research Food Technologist Relationship Specialty Start Date End Date Micheal Gutiérrez MD [address] [id number] PCP - General Family Medicine 11/10/21 Research Food Technologist Relationship Specialty Start Date End Date Micheal Gutiérrez MD [address] [place] [address] PCP - General Family Medicine 11/10/21 Research Food Technologist Relationship Specialty Start Date End Date Micheal [...] BE BASED ON THE PRIMARY CLINICAL RECORDS. [facility] [employer] [facility]. provides no warranty or guarantee of the accuracy or completeness of information in this document.
--- NOTE | 2023-05-22 22:50 | PC.NURSE ---
pt has open area noted on coccyx, area is noted to be yellow, no active drainage is noted at this time. area is cleaned with soap and water and telfa is placed over area.
[2023-05-22 22:53] VITALS: BMI 18.8
[2023-05-23] VITALS (13 sets, daily range): BP systolic 136–155; BP diastolic 64–82; PULSE 58–78; RESP 14–20; TEMP 36.3–36.4; O2SAT 83–96
[2023-05-23] MEDS: MORPHINE SULFATE 2 MG/ML SYRINGE IV ×3 (02:01→12:03)
[2023-05-23] MEDS: 0.9 % SODIUM CHLORIDE 1,000 ML 75 ML IV (02:16)
--- NOTE | 2023-05-23 03:32 | PC.NURSE ---
notified pt cash he came up on admission that he ws not to get out of bed unlesss with help from staff, pt stated he understood and would follow directions at that time
[2023-05-23] MEDS: ACETAMINOPHEN 325 MG TABLET 650 MG PO (04:57)
--- NOTE | 2023-05-23 05:53 | W.PM.TELEPN ---
Progress Note: Subjective Subjective Interval history: CC: Fall HPI: This is a 83-year-old male presents to the emergency department for vague reasons. He comes in from home and is coming by his daughter who does most of the speaking. The patient states he is here because of pneumonia and the daughter states she is here because he fell. He had been diagnosed with pneumonia and was admitted to this hospital and went home five or six days ago. Four days ago he fell in his home and was ordered outpatient x-rays which were performed. In reviewing these it appears that he has rib fractures, acute. No pneumothorax. He complains of weakness and wants something for pain. No fever. The patient had difficulty to ambulate and therefore admitted for further evaluation through emergency room. Patient has a PEG tube in place. Exam Narrative Exam Narrative: Physical Exam: Not in distress, pleasant, lucid, cooperative, Head - atraumatic, eyes - pupils equal, round, reactive to light, extra ocular movement intact, MMM Neck - supple, thyroid not enlarged, LN not palpated Lungs - clear to auscultation, no dullness on percussion CVS - heart sounds S1, S2, no additional murmurs gallop, regular rate and rhythm Gastrointestinal?abdomen is soft, non-tender, non-distended, no organomegaly, positive bowel sounds Extremities no clubbing, cyanosis or edema Neurological?cranial nerve II?XII grossly intact, no meningeal signs, no cerebellar signs, no sensory deficit Musculoskeletal - DJD related changes in multiple joints, no effusions, ROM preserved Dermatological - the skin dry, warm, no rashes Psychiatric?patient is AAO X3, patient has normal affect Constitutional Vital Signs, click to edit/add: Last Vital Signs Temp 97.4 F L 05/22/23 22:18 Pulse 67 05/22/23 22:18 Resp 18 05/22/23 22:18 BP 158/75 H 05/22/23 22:18 Pulse Ox 92 L 05/23/23 04:22 O2 Del Method Nasal Cannula 05/23/23 04:22 O2 Flow Rate 4.5 05/23/23 04:22 Progress Note: Objective Labs Labs: Short CBC 05/22/23 Range/Units 19:00 WBC 21.4 H (4.0-11.0) 10^3/uL Hgb 10.2 L (14.0-18.0) g/dL Hct 33.7 L (42.0-54.0) % Plt Count 310 (150-450) 10^3/uL BMP 05/22/23 19:00 Sodium 142 Potassium 4.5 Chloride 106 Carbon Dioxide 30.7 BUN 65.0 H Creatinine 1.43 H Glucose 185 H Calcium 8.9 Progress Note: A&P Assessment and Plan (1) Generalized weakness: Assessment and Plan: Mild factorial. Fall precautions in place. No signs of acute infection. Previously seen and pneumonia did not confirmed by chest x-ray in the emergency room. Follow-up with physical and Occupational Therapy for further recommendations. Nutritional support. (2) Closed rib fracture: Assessment and Plan: Related to above-mentioned fall. No pneumothorax. Continue with incentive spirometry. Try to optimize pain regiment. Patient at risk of developing pneumonia (3) Hypothyroidism: Assessment and Plan: Resume home dose of supplemental levothyroxine. Follow-up TSH results Plan As the provider for the telehealth service, I attest that I introduced myself to the patient, provided my credentials, disclosed by location and determined that based on a review of the patient's chart and discussion with members of the patient's treatment team, telemedicine via real-time, 2 way, and interactive audio and video platform is an appropriate and effective means of providing the service. ?The patient and I mutually agree this visit is appropriate for telemedicine. ?[place] ?The encounter took approximately 35 minutes. ?The nurse was present during the entire time and I was able to move the stethoscope in appropriate directions. ?The patient was evaluated at the Hospital ? Portions of this note may be dictated using [employer] voice recognition software. Variances in spelling and vocabulary are possible and unintentional. Not all errors may be caught and/or corrected. Please notify the author if any discrepancies are noted and/or if the meaning of any statement is unclear.? ? Patient verbally consented for treatment via video visit with patient currently located at the [facility] and provider located in [place]. Telemedicine Attestation Telemedicine Attestation I conducted this encounter from [place] [] via secure live, [id number] video conference with the patient, located at [facility] with [weakness]. Prior to the interview, the risks and benefits of telemedicine were discussed with the patient and verbal consent was obtained.
[2023-05-23 06:00] LABS: Basophils Absolute Auto 0.1 10^3/uL (0.0-0.1); Basophils Percent Auto 0.4 % (0.2-2.0); Hematocrit 32.8 % (42.0-54.0); Hemoglobin 10.1 g/dL (14.0-18.0); Immature Granulocytes Abs Auto 0.65 10^3/uL (0.00-0.03); Immature Granulocytes Pct Auto 4.1 % (0.0-0.5); Lymphocytes Absolute Auto 1.2 10^3/uL (1.2-3.8); Lymphocytes Percent Auto 7.6 % (20.5-60.0); Mean Corpuscular HGB Conc 30.8 g/dL (29.9-35.2); Mean Corpuscular Hemoglobin 30.1 pg (25.9-34.0); Mean Corpuscular Volume 97.6 fL (80.0-94.0); Mean Platelet Volume 10.4 fL (9.5-13.5); Monocytes Absolute Auto 0.9 10^3/uL (0.3-0.8); Monocytes Percent Auto 5.8 % (1.7-12.0); Neutrophils Absolute Auto 12.9 10^3/uL (1.4-6.5); Neutrophils Percent Auto 82.1 % (43.0-75.0); Platelet Count 276 10^3/uL (150-450); Red Blood Count 3.36 10^6/uL (4.70-6.10); Red Cell Distribution Width 13.9 % (11.0-15.0); White Blood Count 15.7 10^3/uL (4.0-11.0)
[2023-05-23 06:22] LABS: Alanine Aminotransferase 12 U/L (16-63); Albumin Globulin Ratio 0.5; Albumin Level 1.7 g/dL (3.4-5.0); Alkaline Phosphatase 111 U/L (46-116); Anion Gap 10.2; Aspartate Amino Transferase 17 U/L (15-37); Bilirubin Total 0.3 mg/dL (0.2-1.0); Calcium 9.1 mg/dL (8.5-10.1); Carbon Dioxide 27.8 mmol/L (21.0-32.0); Chloride 109 mmol/L (98-107); Estimated GFR (African America >60 (>=60); Estimated GFR (Non-African Ame >60 (>=60); Globulin 3.6 g/dL; Glucose 98 mg/dL (74-106); Sodium 143 mmol/L (136-145); Total Protein 5.3 g/dL (6.4-8.2)
[2023-05-23] MEDS: HYDROCODONE/ACET 10-325 MG TABLET 1 TAB PO ×3 (09:02→20:25)
[2023-05-23] MEDS: APIXABAN 5 MG TABLET 2.5 MG PO ×2 (09:55→20:25)
[2023-05-23] MEDS: CALCITONIN,SALMON,SYNTHETIC 30 SPRAY/3.7 ML BOTTLE NOSTRIL-B (09:55)
[2023-05-23] MEDS: PREDNISONE 10 MG TABLET 30 MG PO (09:56)
[2023-05-23] MEDS: FINASTERIDE 5 MG TABLET PO (09:59)
[2023-05-23] MEDS: FLUCONAZOLE 100 MG TABLET 200 MG PO (09:59)
[2023-05-23] MEDS: OMEPRAZOLE 40 MG CAPSULE.DR PO (09:59)
[2023-05-23] MEDS: LEVOFLOXACIN 750 MG TABLET PO (09:59)
[2023-05-23] MEDS: CARVEDILOL 12.5 MG TABLET G-TUBE ×2 (09:59→20:29)
[2023-05-23] MEDS: LEVOTHYROXINE SODIUM 75 MCG TABLET PO (09:59)
[2023-05-23 10:00] LABS: Glucometer 76 mg/dL (74-106)
--- NOTE | 2023-05-23 10:47 | RESP.RT ---
decreased to 3 LPM
[2023-05-23] MEDS: INSULIN DETEMIR 300 UNIT/3 ML INSULN.PEN 30 UNIT SUBQ (10:57)
[2023-05-23] MEDS: GLUCERNA 1.5 CAL 237 ML LIQUID PO ×3 (10:57→20:23)
--- NOTE | 2023-05-23 11:27 | P.HP_ITS ---
H&P: HPI History of Present Illness Chief complaint: BACK PAIN CLOSED FIB FRACTURES GEN WEAKNESS Narrative: Pt presented to the ER with increasing weakness and cough. Treated and released for pneumonia. No fevers. Looks a little dehydrated. Feels some better this am when I am seeing him. Still weak but more awake since getting fluids Review of Systems ROS Status of ROS 10 or more systems reviewed and unremark able except as noted in history and below [facility] Medical History (Updated 05/22/23 @ 22:19 by Emmy Guidry RN) Rib fractures ?S22.49XA - Multiple fractures of ribs, unspecified side, initial encounter for closed fracture (ICD-10) Adult failure to thrive ?R62.7 - Adult failure to thrive (ICD-10) Hypothyroidism ?E03.9 - Hypothyroidism, unspecified (ICD-10) STACY (acute kidney injury) ?N17.9 - Acute kidney failure, unspecified (ICD-10) Metabolic encephalopathy ?G93.41 - Metabolic encephalopathy (ICD-10) Aspiration pneumonia ?J69.0 - Pneumonitis due to inhalation of food and vomit (ICD-10) Vomiting ?R11.10 - Vomiting, unspecified (ICD-10) Right middle lobe pneumonia ?J18.9 - Pneumonia, unspecified organism (ICD-10) Decubitus ulcer of coccygeal region ?L89.159 - Pressure ulcer of sacral region, unspecified stage (ICD-10) Back pain ?M54.9 - Dorsalgia, unspecified (ICD-10) COPD (chronic obstructive pulmonary disease) (Unknown) ?J44.9 - Chronic obstructive pulmonary disease, unspecified (ICD-10) Acute hyperkalemia ?E87.5 - Hyperkalemia (ICD-10) Acute dehydration ?E86.0 - Dehydration (ICD-10) Community acquired pneumonia ?J18.9 - Pneumonia, unspecified organism (ICD-10) History of gastrostomy tube placement History of arthritis ?Z87.39 - Personal history of other diseases of the musculoskeletal system and connective tissue (ICD-10) History of diabetes mellitus ?Z86.39 - Personal history of other endocrine, nutritional and metabolic disease (ICD-10) History of COPD ?Z87.09 - Personal history of other diseases of the respiratory system (ICD- 10) History of throat cancer ?Z85.819 - Personal history of malignant neoplasm of unspecified site of lip, oral cavity, and pharynx (ICD-10) History of MA (myocardial infarction) ?I25.2 - Old myocardial infarction (ICD-10) History of compression fracture of spine ?Z87.81 - Personal history of (healed) traumatic fracture (ICD-10) Surgical History (Updated 11/10/22 @ 12:02 by Ronnie Rosado) History of colonoscopy ?Z98.890 - Other specified postprocedural states (ICD-10) History of esophagogastroduodenoscopy (EGD) ?Z98.890 - Other specified postprocedural states (ICD-10) History of heart artery stent ?Z95.5 - Presence of coronary angioplasty implant and graft (ICD-10) Social History (Updated 05/15/23 @ 02:42 by Arturo Oliveros) Within the past year, how often did you have a drink containing alcohol: never Score interpretation: A score less than 4 is consistent with normal alcohol consumption. Smoking status: Current every day smoker Nicotine containing products detail: 66 1 pack per day Non-prescribed substance use: denies use Previous occupational history: retired Highest level of school completed/degree received: high school graduate Are you now , , , , never or living with a partner: In a typical week, how many times do you talk on the telephone with family, friends, or neighbors: 3 or more times per week How often do you get together with friends or relatives: 3 or more times per week How often do you attend jehovah's witness or anabaptism services: never Do you belong to any clubs or organizations such as jehovah's witness groups unions, [employer] or athletic groups, or school groups: no Total score: 2 Score interpretation: A score of greater than or equal to 2 indicates the lowest level of social isolation. Little interest or pleasure in doing things: several days Feeling down, depressed, or hopeless: several days Feel stressed/tense/nervous/anxious/difficulty sleeping: not at all Do you think of yourself as: straight/heterosexual Gender Identity: male Meds Home Medications and Allergies Home Medications Medication Instructions Recorded Confirmed Type albuterol sulfate 90 mcg/actuation 1 inh inhalation Q4H PRN shortness 11/10/22 05/22/23 History aerosol inhaler (ProAir HFA) of breath or wheezing apixaban 2.5 mg tablet (Eliquis) 2.5 mg PO BID 11/10/22 05/22/23 History finasteride 5 mg tablet 5 mg PO DAILY 11/10/22 05/22/23 History hydrocodone 10 mg-acetaminophen 1 tab PO Q4H PRN pain 11/10/22 05/22/23 History 325 mg tablet insulin glargine 100 unit/mL (3 30 unit subcut DAILY 11/10/22 05/22/23 History mL) subcutaneous pen (Lantus Solostar U-100 Insulin) levothyroxine 75 mcg capsule 75 mcg PO DAILY 11/10/22 05/22/23 History pantoprazole 40 mg tablet,delayed 40 mg PO DAILY 11/10/22 05/22/23 History release atorvastatin 20 mg tablet (Lipitor) 20 mg PO QPM 12/07/22 05/22/23 History carvedilol 12.5 mg tablet 12.5 mg feeding tube QDAY 12/07/22 05/22/23 History calcitonin (salmon) 200 1 spray intranasal (ALT) QDAY 12/18/22 05/22/23 History unit/actuation nasal spray albuterol sulfate 2.5 mg/3 mL 2.5 mg inhalation Q6H PRN 05/15/23 05/22/23 History (0.083 %) solution for nebulization shortness of breath or wheezing budesonide 0.5 mg/2 mL suspension 0.5 mg inhalation Q12H PRN 05/15/23 05/22/23 History for nebulization shortness of breath or wheezing water for irrigation, sterile 120 ml G-tube TID 05/15/23 05/22/23 History fluconazole 200 mg tablet 200 mg PO DAILY #14 tabs 05/18/23 05/22/23 Rx (Diflucan) levofloxacin 750 mg tablet 750 mg PO DAILY 10 days #10 tabs 05/18/23 05/22/23 Rx nut.tx.gluc.intol,lac-free,soy 1 ea G-tube Q4H #42,660 mL 05/18/23 Rx (Glucerna Shake oral liquid) prednisone 10 mg tablet 50 mg (5 x 10 mg) PO DAILY #47 tabs 05/18/23 05/22/23 Rx Allergies Allergy/AdvReac Type Severity Reaction Status Date / Time No Known Drug Allergies Allergy Verified 05/22/23 18:28 Exam Constitutional Vital Signs, click to edit/add: Last Vital Signs Temp 97.4 F L 05/22/23 22:18 Pulse 67 05/22/23 22:18 Resp 18 05/22/23 22:18 BP 158/75 H 05/22/23 22:18 Pulse Ox 96 05/23/23 10:47 O2 Del Method Nasal Cannula 05/23/23 10:47 O2 Flow Rate 4.5 05/23/23 10:47 Common normals: apparent distress General appearance: ill appearing Nutritional appearance: cachectic and underweight Orientation/consciousness: Yes lethargic HENMT Common normals: normocephalic Chest Common normals: inspection of chest normal Respiratory Common normals: normal respiratory effort Effort & inspection: non tachypneic Auscultation: rhonchi (Minimal), wheezes (Minimal) and egophony (Resolved) right lower Cardio Common normals: regular rate, regular rhythm and no murmurs GI Common normals: Normal to inspection, nondistended, normoactive bowel sounds present (PEG tube in place) Results Labs Labs: Short CBC 05/22/23 05/23/23 Range/Units 19:00 04:10 WBC 21.4 H 15.7 H (4.0-11.0) 10^3/uL Hgb 10.2 L 10.1 L (14.0-18.0) g/dL Hct 33.7 L 32.8 L (42.0-54.0) % Plt Count 310 276 (150-450) 10^3/uL BMP 05/22/23 05/23/23 19:00 04:10 Sodium 142 143 Potassium 4.5 4.0 Chloride 106 109 H Carbon Dioxide 30.7 27.8 BUN 65.0 H 57.0 H Creatinine 1.43 H 1.14 Glucose 185 H 98 Calcium 8.9 9.1 Liver Function 05/23/23 Range/Units 04:10 Total Bilirubin 0.3 (0.2-1.0) mg/dL AST 17 (15-37) U/L ALT 12 L (16-63) U/L Alkaline Phosphatase 111 (46-116) U/L Albumin 1.7 L (3.4-5.0) g/dL Assessment and Plan Assessment and Plan (1) Generalized weakness: (2) Closed rib fracture: (3) Hypothyroidism: (4) Vomiting: (5) Aspiration pneumonia: Qualifiers: Aspiration pneumonia type: due to gastric secretions Laterality: bi lateral Lung location: lower lobe of lung Qualified Code(s): J69.0 - Pneumonitis due to inhalation of food and vomit (6) History of diabetes mellitus: Plan Fever, uncontrolled hypertension, leukocytosis, acute kidney injury with increased from baseline of 130 % resulting from right middle and right lower lob e aspiration pneumonia - x-ray omproving so will keep with previous medications Severe protein calorie malnutrition-adjusted feedings supplements last visit via PEG tube. Consult to dietitian. may need inc fluids Acute kidney injury-improved this morning. Decrease fluid rate with increase in volume from the tube feeds Iron deficiency anemia with acute blood loss-positive Hemoccult-IV Protonix, monitor daily Compression fractures and new rib fx - with very limited pain control-try to keep with oral pain meds Sacral wound-consult to wound therapy-stage II decubitus GERD with the history of aspiration above-IV Protonix will add Reglan via PEG tube Discussed possible NH - pt denies interest. DOes have good care at home.
[2023-05-23] MEDS: ZINC OXIDE 30% CREAM 113.4 GM TUBE 1 APPLIC TOPICAL (12:04)
[2023-05-23] MEDS: WATER FOR IRRIGATION, STERILE 3,000 ML IRRIG.SOLN 120 ML IRRIGATION (14:00)
[2023-05-23 15:21] LABS: Glucometer 63 mg/dL (74-106)
[2023-05-23] MEDS: ATORVASTATIN CALCIUM 20 MG TABLET PO (20:25)
[2023-05-24] VITALS (16 sets, daily range): BP systolic 139–157; BP diastolic 55–64; PULSE 69–77; RESP 18–22; TEMP 36.6–36.7; O2SAT 79–99
[2023-05-24] MEDS: HYDROCODONE/ACET 10-325 MG TABLET 1 TAB PO ×3 (00:51→20:55)
[2023-05-24] MEDS: GLUCERNA 1.5 CAL 237 ML LIQUID PO ×7 (00:51→23:42)
[2023-05-24 00:56] LABS: Glucometer 55 mg/dL (74-106)
[2023-05-24] MEDS: WATER FOR IRRIGATION, STERILE 3,000 ML IRRIG.SOLN 120 ML IRRIGATION ×2 (00:57→06:29)
[2023-05-24 03:24] LABS: Glucometer 78 mg/dL (74-106)
[2023-05-24] MEDS: MORPHINE SULFATE 2 MG/ML SYRINGE IV (03:30)
--- NOTE | 2023-05-24 04:43 | PC.NURSE ---
before each bolus tube feed, check residual in pt stomach before admin of glucerna, pt has had no residual fot first two feeds, approximately tem mL this last feed residual bfore admin of 60mL flush, than glucerna 237mL followed by 60mL flush with sterile water. pt states he has had no abdominal doscomfort from bolus feedings at this time
[2023-05-24 05:38] LABS: Basophils Absolute Auto 0.1 10^3/uL (0.0-0.1); Basophils Percent Auto 0.3 % (0.2-2.0); Eosinophils Percent Auto 0.2 % (0.9-7.0); Hematocrit 31.7 % (42.0-54.0); Hemoglobin 9.7 g/dL (14.0-18.0); Immature Granulocytes Abs Auto 0.99 10^3/uL (0.00-0.03); Immature Granulocytes Pct Auto 5.1 % (0.0-0.5); Lymphocytes Absolute Auto 1.9 10^3/uL (1.2-3.8); Lymphocytes Percent Auto 9.5 % (20.5-60.0); Mean Corpuscular HGB Conc 30.6 g/dL (29.9-35.2); Mean Corpuscular Hemoglobin 29.8 pg (25.9-34.0); Mean Corpuscular Volume 97.5 fL (80.0-94.0); Mean Platelet Volume 10.6 fL (9.5-13.5); Monocytes Absolute Auto 1.1 10^3/uL (0.3-0.8); Monocytes Percent Auto 5.4 % (1.7-12.0); Neutrophils Absolute Auto 15.6 10^3/uL (1.4-6.5); Neutrophils Percent Auto 79.5 % (43.0-75.0); Platelet Count 319 10^3/uL (150-450); Red Blood Count 3.25 10^6/uL (4.70-6.10); Red Cell Distribution Width 13.9 % (11.0-15.0); White Blood Count 19.6 10^3/uL (4.0-11.0)
[2023-05-24 06:04] LABS: Alanine Aminotransferase 8 U/L (16-63); Albumin Globulin Ratio 0.5; Albumin Level 1.6 g/dL (3.4-5.0); Alkaline Phosphatase 139 U/L (46-116); Anion Gap 12.3; Aspartate Amino Transferase 20 U/L (15-37); BUN Creatinine Ratio 49.5; Bilirubin Total 0.2 mg/dL (0.2-1.0); Calcium 8.8 mg/dL (8.5-10.1); Carbon Dioxide 26.5 mmol/L (21.0-32.0); Chloride 107 mmol/L (98-107); Estimated GFR (African America >60 (>=60); Estimated GFR (Non-African Ame >60 (>=60); Globulin 3.5 g/dL; Potassium 3.8 mmol/L (3.5-5.1); Sodium 142 mmol/L (136-145); Total Protein 5.1 g/dL (6.4-8.2)
[2023-05-24 06:25] LABS: Glucose 47 mg/dL (74-106)
[2023-05-24] MEDS: OMEPRAZOLE 40 MG CAPSULE.DR PO (06:25)
[2023-05-24] MEDS: LEVOTHYROXINE SODIUM 75 MCG TABLET PO (06:25)
[2023-05-24 06:30] LABS: Glucometer 74 mg/dL (74-106)
[2023-05-24 07:37] LABS: Glucometer 83 mg/dL (74-106)
[2023-05-24] MEDS: LEVOFLOXACIN 750 MG TABLET PO (09:31)
[2023-05-24] MEDS: FLUCONAZOLE 100 MG TABLET 200 MG PO (09:31)
[2023-05-24] MEDS: APIXABAN 5 MG TABLET 2.5 MG PO ×2 (09:31→20:55)
[2023-05-24] MEDS: FINASTERIDE 5 MG TABLET PO (09:32)
[2023-05-24] MEDS: CARVEDILOL 12.5 MG TABLET G-TUBE ×2 (09:32→20:55)
[2023-05-24] MEDS: PREDNISONE 10 MG TABLET 30 MG PO (09:32)
[2023-05-24] MEDS: CALCITONIN,SALMON,SYNTHETIC 30 SPRAY/3.7 ML BOTTLE NOSTRIL-B (09:34)
--- NOTE | 2023-05-24 11:06 | P.PN_ITS ---
Progress Note: Subjective Subjective Interval history: Cough, more sputum production today, no change in hypoxia send Rx Exam Constitutional Vital Signs, click to edit/add: Last Vital Signs Temp 97.9 F 05/24/23 05:51 Pulse 77 05/24/23 06:00 Resp 22 05/24/23 05:51 BP 146/61 H 05/24/23 05:51 Pulse Ox 95 05/24/23 09:55 O2 Del Method Nasal Cannula 05/24/23 05:51 O2 Flow Rate 3 05/24/23 05:51 Common normals: apparent distress General appearance: ill appearing Nutritional appearance: cachectic and underweight Orientation/consciousness: Yes lethargic HENMT Common normals: normocephalic Chest Common normals: inspection of chest normal Respiratory Common normals: normal respiratory effort Effort & inspection: non tachypneic Auscultation: rhonchi (Minimal), wheezes (Minimal) and egophony (Resolved) right lower Cardio Common normals: regular rate, regular rhythm and no murmurs GI Common normals: Normal to inspection, nondistended, normoactive bowel sounds present (PEG tube in place) Progress Note: Objective Labs Labs: Short CBC 05/24/23 Range/Units 04:14 WBC 19.6 H (4.0-11.0) 10^3/uL Hgb 9.7 L (14.0-18.0) g/dL Hct 31.7 L (42.0-54.0) % Plt Count 319 (150-450) 10^3/uL BMP 05/24/23 04:14 Sodium 142 Potassium 3.8 Chloride 107 Carbon Dioxide 26.5 BUN 51.0 H Creatinine 1.03 Glucose 47 L* Calcium 8.8 Liver Function 05/24/23 Range/Units 04:14 Total Bilirubin 0.2 (0.2-1.0) mg/dL AST 20 (15-37) U/L ALT 8 L (16-63) U/L Alkaline Phosphatase 139 H (46-116) U/L Albumin 1.6 L (3.4-5.0) g/dL Progress Note: A&P Assessment and Plan (1) Generalized weakness: (2) Closed rib fracture: (3) Hypothyroidism: (4) Vomiting: (5) Aspiration pneumonia: Qualifiers: Aspiration pneumonia type: due to gastric secretions Laterality: maeve ateral Lung location: lower lobe of lung Qualified Code(s): J69.0 - Pneumonitis due to inhalation of food and vomit (6) History of diabetes mellitus: Plan leukocytosis, acute kidney injury with increased from baseline of 130 % resulting from right middle and right lower lobe aspiration pneumonia - x-ray improving-with increasing white blood cell count and increase in sputum production we will adjust antibiotics today, keep with the Diflucan, try to obtain sputum culture. Insulin-dependent diabetes mellitus-significant hypoglycemia. Was looking at possibly sending home today but with the change in sputum production as outlined above and severe hypoglycemia will adjust insulin sliding scale today as well as his long-acting insulin, Severe protein calorie malnutrition-adjusted feedings supplements last visit via PEG tube. Consult to dietitian. may need inc fluids Acute kidney injury-improved this morning. Stable Iron deficiency anemia with acute blood loss-hemoglobin is down slightly, was positive Hemoccult previously. Continue to monitor Compression fractures and new rib fx - with very limited pain control-try to keep with oral pain meds Sacral wound-consult to wound therapy-stage II decubitus GERD with the history of aspiration above-IV Protonix will add Reglan via PEG tube Was looking at possible discharge today number standpoint but now his white blood cell count is higher he has increased urine production, not likely to mount significant fever due to his debilitated condition, holding off on further chest x-ray will change antibiotics, check sputum culture, adjust insulin dosing, hyperglycemia possible sign of worsening pulmonary infection. Likely stay 2-3 more days. Change patient to inpatient status ?
[2023-05-24 11:26] LABS: Glucometer 81 mg/dL (74-106)
[2023-05-24] MEDS: 0.9 % SODIUM CHLORIDE 250 ML 10 ML IV (12:42)
[2023-05-24] MEDS: CLINDAMYCIN PHOSPHATE/D5W 600 MG/50 ML PIGGYBACK 100 MG IV ×2 (12:42→20:55)
[2023-05-24] MEDS: CEFTAZIDIME 2,000 MG in 0.9 % SODIUM CHLORIDE 100 ML 200 MG IV (13:36)
[2023-05-24 16:07] LABS: Glucometer 294 mg/dL (74-106)
[2023-05-24 20:12] LABS: Glucometer 288 mg/dL (74-106)
[2023-05-24] MEDS: ATORVASTATIN CALCIUM 20 MG TABLET PO (20:55)
[2023-05-24] MEDS: INSULIN ASPART 300 UNIT/3 ML PEN SUBQ (21:46)
[2023-05-25] VITALS (10 sets, daily range): BP systolic 137–156; BP diastolic 56–66; PULSE 67–76; RESP 16–18; TEMP 36.6–37.2; O2SAT 90–99; BMI 18.8
[2023-05-25] MEDS: CLINDAMYCIN PHOSPHATE/D5W 600 MG/50 ML PIGGYBACK 100 MG IV ×2 (02:11→07:26)
[2023-05-25] MEDS: HYDROCODONE/ACET 10-325 MG TABLET 1 TAB PO ×2 (02:11→12:00)
[2023-05-25] MEDS: CEFTAZIDIME 2,000 MG in 0.9 % SODIUM CHLORIDE 100 ML 200 MG IV (02:49)
[2023-05-25] MEDS: GLUCERNA 1.5 CAL 237 ML LIQUID PO ×3 (04:15→12:00)
[2023-05-25] MEDS: HYDROMORPHONE HCL 1 MG/ML CARTRIDGE IV ×2 (04:39→09:58)
[2023-05-25] MEDS: LEVOTHYROXINE SODIUM 75 MCG TABLET PO (05:32)
[2023-05-25] MEDS: OMEPRAZOLE 40 MG CAPSULE.DR PO (05:32)
[2023-05-25 06:12] LABS: Basophils Percent Auto 0.2 % (0.2-2.0); Eosinophils Percent Auto 0.1 % (0.9-7.0); Hematocrit 29.7 % (42.0-54.0); Hemoglobin 9.2 g/dL (14.0-18.0); Immature Granulocytes Abs Auto 0.82 10^3/uL (0.00-0.03); Immature Granulocytes Pct Auto 5.5 % (0.0-0.5); Lymphocytes Absolute Auto 1.3 10^3/uL (1.2-3.8); Lymphocytes Percent Auto 8.4 % (20.5-60.0); Mean Corpuscular Hemoglobin 30.3 pg (25.9-34.0); Mean Corpuscular Volume 97.7 fL (80.0-94.0); Mean Platelet Volume 10.5 fL (9.5-13.5); Monocytes Absolute Auto 0.9 10^3/uL (0.3-0.8); Monocytes Percent Auto 5.9 % (1.7-12.0); Neutrophils Absolute Auto 11.9 10^3/uL (1.4-6.5); Neutrophils Percent Auto 79.9 % (43.0-75.0); Platelet Count 249 10^3/uL (150-450); Red Blood Count 3.04 10^6/uL (4.70-6.10); Red Cell Distribution Width 13.9 % (11.0-15.0)
[2023-05-25 06:50] LABS: Alanine Aminotransferase 12 U/L (16-63); Albumin Globulin Ratio 0.5; Albumin Level 1.6 g/dL (3.4-5.0); Alkaline Phosphatase 198 U/L (46-116); Anion Gap 10.9; Aspartate Amino Transferase 15 U/L (15-37); BUN Creatinine Ratio 45.4; Bilirubin Total 0.3 mg/dL (0.2-1.0); Calcium 8.4 mg/dL (8.5-10.1); Carbon Dioxide 29.6 mmol/L (21.0-32.0); Chloride 102 mmol/L (98-107); Estimated GFR (African America >60 (>=60); Estimated GFR (Non-African Ame >60 (>=60); Globulin 3.2 g/dL; Glucose 165 mg/dL (74-106); Potassium 4.5 mmol/L (3.5-5.1); Sodium 138 mmol/L (136-145); Total Protein 4.8 g/dL (6.4-8.2)
[2023-05-25 07:27] LABS: Glucometer 180 mg/dL (74-106)
[2023-05-25] MEDS: INSULIN ASPART 300 UNIT/3 ML PEN SUBQ (07:29)
--- NOTE | 2023-05-25 07:49 | P.DS_ITS ---
DS: Providers Provider Date of admission: 05/24/23 11:09 Primary care physician: Juvenal Murphy MD Consults: 05/23/23 07:46 Physical Therapy Eval and Treat Routine Reason for consultation: lulht Has provider been notified: No 05/23/23 07:47 Occupational Therapy Eval and Treat Routine Reason for consultation: if needed for rehab Has provider been notified: No 05/24/23 11:00 Consult to General Surgeon Routine Consulting Provider: Pilar Sanz Reason for consultation: Peg tube replacemnt Has provider been notified: No Consult to Wound Care Routine Consulting Provider: Herbert Estrada Reason for consultation: sacral Has provider been notified: No DS: Diagnosis Discharge Diagnosis (1) Generalized weakness: (2) Closed rib fracture: (3) Hypothyroidism: (4) Vomiting: (5) Aspiration pneumonia: Qualifiers: Aspiration pneumonia type: due to gastric secretions Laterality: bilateral Lung location: lower lobe of lung Qualified Code(s): J69.0 - Pneumonitis due to inhalation of food and vomit (6) History of diabetes mellitus: Plan leukocytosis, acute kidney injury with increased from baseline of 130 % re sulting from right middle and right lower lobe aspiration pneumonia Insulin-dependent diabetes mellitus-significant hypoglycemia. Severe protein calorie malnutrition-adjusted feedings supplements last visit via PEG tube. Acute kidney injury Iron deficiency anemia with acute blood loss Compression fractures and new rib fx Sacral wound-consult to wound therapy GERD with the history of aspiration above DS: Summary Hospital Course Hospital Course: Patient admitted with increasing weakness. Found to have mildly to moderate dehydration. Given IV fluids. Improved somewhat the following day from that standpoint but had increased white blood cell count and significant hypoglycemia into the less than 50s. Increase sputum production as well. Still plan to obtain sputum sample. Antibiotics were adjusted yesterday. He does feel somewhat better today. He is getting his G-tube changed while he is here since his wall of the G-tube itself is leaking. Will see how the day progresses if he continues to improve, he could be discharged earlier than anticipated yesterday as he does feel much improved today. The signs looking at yesterday in terms of his deterioration with increasing white blood cell count, hypoglycemia and significant increase in sputum production. All 3 of those are better today. If he is discharged later today can follow-up with me in the office more as needed as it is difficult for him to get into the office. We could also do virtual. Otherwise medications see list. Printed pain medicine prescription is her having a hard time getting it at the pharmacy Time Spent with Patient Time attestation: Total time spent providing and/or coordinating discharge services: Exam Constitutional Vital Signs, click to edit/add: Last Vital Signs Temp 98.0 F 05/25/23 04:17 Pulse 75 05/25/23 04:17 Resp 16 05/25/23 04:17 BP 156/64 H 05/25/23 04:17 Pulse Ox 99 05/25/23 06:00 O2 Del Method Nasal Cannula 05/25/23 04:17 O2 Flow Rate 2 05/25/23 04:17 Common normals: apparent distress General appearance: ill appearing Nutritional appearance: cachectic and underweight Orientation/consciousness: Yes lethargic HENMT Common normals: normocephalic Chest Common normals: inspection of chest normal Respiratory Common normals: normal respiratory effort Effort & inspection: non tachypneic Auscultation: rhonchi (Minimal), wheezes (Minimal) and egophony (Resolved) right lower Cardio Common normals: regular rate, regular rhythm and no murmurs GI Common normals: Normal to inspection, nondistended, normoactive bowel sounds present (PEG tube in place) DS: Data Data Completed and Pending Labs on day of discharge: Labs from last 24 hours 05/25/23 05/25/23 05/24/23 07:26 04:37 20:01 WBC 15.0 H RBC 3.04 L Hgb 9.2 L Hct 29.7 L MCV 97.7 H MCH 30.3 MCHC 31.0 RDW 13.9 Plt Count 249 MPV 10.5 Neut % (Auto) 79.9 H Lymph % (Auto) 8.4 L [place] % (Auto) 5.9 Eos % (Auto) 0.1 L Baso % (Auto) 0.2 Neut # (Auto) 11.9 H Lymph # (Auto) 1.3 [place] # (Auto) 0.9 H Eos # (Auto) 0.0 Baso # (Auto) 0.0 Abs Immat Gran (auto) 0.82 H Imm/Tot Granulo (auto) 5.5 H Sodium 138 Potassium 4.5 Chloride 102 Carbon Dioxide 29.6 Anion Gap 10.9 BUN 49.0 H Creatinine 1.08 Est GFR ( Amer) >60 Est GFR (Non-Af Amer) >60 BUN/Creatinine Ratio 45.4 Glucose 165 H Calcium 8.4 L Total Bilirubin 0.3 AST 15 ALT 12 L Alkaline Phosphatase 198 H Total Protein 4.8 L Albumin 1.6 L Globulin 3.2 Albumin/Globulin Ratio 0.5 POC Glucose 180 H 288 H 05/24/23 05/24/23 16:06 11:24 WBC RBC Hgb Hct MCV MCH MCHC RDW Plt Count MPV Neut % (Auto) Lymph % (Auto) [place] % (Auto) Eos % (Auto) Baso % (Auto) Neut # (Auto) Lymph # (Auto) [place] # (Auto) Eos # (Auto) Baso # (Auto) Abs Immat Gran (auto) Imm/Tot Granulo (auto) Sodium Potassium Chloride Carbon Dioxide Anion Gap BUN Creatinine Est GFR ( Amer) Est GFR (Non-Af Amer) BUN/Creatinine Ratio Glucose Calcium Total Bilirubin AST ALT Alkaline Phosphatase Total Protein Albumin Globulin Albumin/Globulin Ratio POC Glucose 294 H 81 Preliminary micro results at discharge 05/22/23 21:29 - Preliminary Blood NO GROWTH AT 36-48 HOURS. FINAL TO FOLLOW. 05/22/23 20:21 Blood Culture Result 1 - Preliminary Blood NO GROWTH AT 36-48 HOURS. FINAL TO FOLLOW. Discharge Plan Discharge Disposition: Home Health Service Condition: Good Discharge Medications: New hydrocodone-acetaminophen 10-325 mg tablet 1 tab PO Q4H PRN (Reason: pain) Qty: 180 0RF Continued atorvastatin [Lipitor] 20 mg tablet 20 mg PO QPM Patient Comments: TAKES AT 7PM carvedilol 12.5 mg tablet 12.5 mg feeding tube QDAY Patient Comments: TAKES AT 1100 Rx Instructions: must administer with a meal/food finasteride 5 mg tablet 5 mg PO DAILY Patient Comments: TAKES AT 11 AM insulin glargine [Lantus Solostar U-100 Insulin] 100 unit/mL (3 mL) insulin pen 30 unit SUBCUT DAILY Patient Comments: TAKES AT 1100 pantoprazole 40 mg tablet,delayed release (DR/EC) 40 mg PO DAILY Patient Comments: TAKES AT 0900 levothyroxine 75 mcg capsule 75 mcg PO DAILY Patient Comments: TAKES AT 0900 Eliquis 2.5 mg tablet 2.5 mg PO BID Patient Comments: TAKES AT 11AM, 7 PM albuterol sulfate [ProAir HFA] 90 mcg/actuation HFA aerosol inhaler 1 inh inhalation Q4H PRN (Reason: shortness of breath or wheezing) calcitonin (salmon) 200 unit/actuation spray,non-aerosol 1 spray intranasal (ALT) QDAY Patient Comments: TAKES AT 11 AM Rx Instructions: ALTERNATE NOSTRILS DAILY albuterol sulfate 2.5 mg /3 mL (0.083 %) solution for nebulization 2.5 mg inhalation Q6H PRN (Reason: shortness of breath or wheezing) budesonide 0.5 mg/2 mL suspension for nebulization 0.5 mg inhalation Q12H PRN (Reason: shortness of breath or wheezing) water for irrigation, sterile Solution 120 ml G-tube TID Rx Instructions: 60 MLS WITH MEDS THEN ANOTHER 60 MLS TO FLUSH Glucerna Shake Liquid 1 ea G-tube Q4H Qty: 98504 11RF Rx Instructions: Need 6 bottles a day fluconazole [Diflucan] 200 mg tablet 200 mg PO DAILY Qty: 14 0RF levofloxacin 750 mg tablet 750 mg PO DAILY 10 Days Qty: 10 0RF prednisone 10 mg tablet 50 mg PO DAILY Qty: 47 0RF Rx Instructions: 5/day for 3 days. 4/day for 3 days, 3/day for 3 days, 2/day for 3 days, 1/day for 3 days, 1/2 /day for 4 days Discontinued hydrocodone-acetaminophen 10-325 mg tablet 1 tab PO Q4H PRN (Reason: pain) Forms: Portal Instructions
[2023-05-25] MEDS: APIXABAN 5 MG TABLET 2.5 MG PO (09:58)
[2023-05-25] MEDS: FLUCONAZOLE 100 MG TABLET 200 MG PO (09:58)
[2023-05-25] MEDS: FINASTERIDE 5 MG TABLET PO (09:59)
[2023-05-25] MEDS: CARVEDILOL 12.5 MG TABLET G-TUBE (09:59)
[2023-05-25] MEDS: PREDNISONE 10 MG TABLET 30 MG PO (09:59)
[2023-05-25] MEDS: CALCITONIN,SALMON,SYNTHETIC 30 SPRAY/3.7 ML BOTTLE NOSTRIL-B (10:02)
[2023-05-25] MEDS: INSULIN DETEMIR 300 UNIT/3 ML INSULN.PEN 20 UNIT SUBQ (10:02)
[2023-05-25 11:32] LABS: Glucometer 125 mg/dL (74-106)
--- NOTE | 2023-05-25 12:08 | W.PM.WC_ITS ---
Wound Consult Note Assessment and Plan (1) Generalized weakness: (2) Closed rib fracture: (3) Hypothyroidism: (4) Vomiting: (5) Aspiration pneumonia: Qualifiers: Aspiration pneumonia type: due to gastric secretions Laterality: bilat eral Lung location: lower lobe of lung Qualified Code(s): J69.0 - Pneumonitis due to inhalation of food and vomit (6) History of diabetes mellitus: Plan Consulted to see patient today for sacral pressure ulcer. Patient with open area to coccyx/sacral area that does appear to be very close to bone that is covered with slough/fibrin tissue. Area measures [id number]. At this time will stage as unstageable given wound bed covered in devitalized tissue. Patient has very little subcutaneous tissue in this area to pad. No signs of infection. Tender to touch. Bilateral buttocks treated with pinvax ointment due to excoriated skin due to incontinence. No signs of infection noted. Patient also found to have bilateral boggy heels. Skin is red, does wilfredo very slowly, left more red than right. States does have some discomfort to his heels but also says everything hurts . Recommendations: Medihoney gel and allevyn sacral dressing to open coccyx/sacral ulcer daily. May use allevyn dressing for up to 3 days if not soiled. Waffle mattress, waffle boots. Reposition frequently. Unable to take photo today due to system error. Updated bedside RN. Please call [phone] with any questions or concerns.
--- NOTE | 2023-05-25 13:18 | NUTR.NU ---
237 ml glucerna 1.5 bolus q 4 h via peg tube furnishes 2133 kcal; 116g protein 1066 ml free water from tube feeding formula + water flushes Meets and exceeds calculated nutritional needs
--- NOTE | 2023-05-25 14:49 | CM.NOTE ---
Important Message From Medicare discussed with pt and daughter, both verbalize understanding and daughter signs paper for pt. Original given to pt and copy placed on pt's chart.
== END 2023-05-25 16:06 | disposition home health service (06) | DRG 177 ==
LOC: ER 20:29 → MS 22:14
PROVIDERS: Internal Medicine; Admitting Provider Family Medicine; Emergency Provider Emergency Medicine; PCP Family Medicine; Visit Provider Family Medicine
DX: J69.0 Pneumonitis due to inhalation of food and vomit (principal); E43 Unspecified severe protein-calorie malnutrition; S22.49XA Multiple fractures of ribs, unspecified side, initial encounter for closed fracture; N17.9 Acute kidney failure, unspecified; Z68.1 Body mass index [BMI] 19.9 or less, adult; D62 Acute posthemorrhagic anemia; D50.9 Iron deficiency anemia, unspecified; L89.152 Pressure ulcer of sacral region, stage 2; E86.0 Dehydration; E11.649 Type 2 diabetes mellitus with hypoglycemia without coma; E03.9 Hypothyroidism, unspecified; J44.9 Chronic obstructive pulmonary disease, unspecified; K21.9 Gastro-esophageal reflux disease without esophagitis; F17.210 Nicotine dependence, cigarettes, uncomplicated; R53.1 Weakness; R11.10 Vomiting, unspecified; R29.6 Repeated falls; I25.2 Old myocardial infarction; Z93.1 Gastrostomy status; Z79.4 Long term (current) use of insulin; Z79.01 Long term (current) use of anticoagulants; Z79.890 Hormone replacement therapy; Z79.899 Other long term (current) drug therapy; Z91.81 History of falling; Z85.819 Personal history of malignant neoplasm of unspecified site of lip, oral cavity, and pharynx; Z95.5 Presence of coronary angioplasty implant and graft; Z87.311 Personal history of (healed) other pathological fracture
CPT/HCPCS: 36415; 71045; 80048; 80053; 80320; 81001; 82948; 84484; 85025; 85027; 87040; 87070; 93005; 94667; 94668; 94761; 96361; 96365; 96366; 96368; 96375; 96376; 97161; 99285; G0378; J0713; J1170; J2270; J7512; Q3014

== ENCOUNTER 2023-06-15 07:19 | Emergency (ER) | payer MEDICARE, MEDICAID, SELFPAY ==
[2023-06-15] VITALS (80 sets, daily range): BP systolic 145–190; BP diastolic 69–100; PULSE 77–123; RESP 15–30; TEMP 36.6–36.7; O2SAT 79–98; BMI 24.9
--- NOTE | 2023-06-15 07:31 | ECG_ITS ---
[facility] Test Date: 2023-06-15 Pat Name: FRANKI VELA Department: Room: - Gender: Male [employer]: : 1940 Requested By: MICHEAL GUTIÉRREZ Order Number: [id number] Reading MD: MICHEAL GUTIÉRREZ Measurements Intervals [place] Rate: 96 P: -19987 NE: -26064 QRS: 47 QRSD: 78 T: 223 QT: 372 QTc: 426 Interpretive Statements 1210 Atrial fibrillation [address] depression, probably digitalis effect 00709 Twave abnormality, possible anterolateral ischemia or digitalis effect 26209 Twave abnormality, possible inferior ischemia or digitalis effect 9150 abnormal ECG Compared to ECG 05/22/2023 18:53:32 ST (T wave) deviation now present Possible ischemia now present Junctional rhythm no longer present Electronically Signed On 06-18-2023 6:21:23 EST by MICHEAL GUTIÉRREZ
--- NOTE | 2023-06-15 07:31 | XR_ITS ---
The [address] [address] Patient Name: FRANKI VELA MRN: [id number] date: 1940 Sex: M Assigned Patient Location: ER Current Patient Location: ER Accession/Order Number: [id number] Exam Date: 06/15/2023 08:02 Report Date: 06/15/2023 08:19 At the request of: RANGEL MCGOVERN Procedure: XR chest 1V XR chest 1V, 06/15/2023 8:02 AM EST, OH001 INDICATION: shortness of breath COMPARISON: Chest radiograph from 05/22/2023 TECHNIQUE: Frontal view of the chest obtained. FINDINGS: The heart remains enlarged. The aorta and mediastinum appear unremarkable. The pulmonary vasculature is normal. There has been interval increase in airspace disease in the right lower lobe. Multiple fractures are now noted involving the right second, third, fourth, fifth and sixth ribs, development of hazy density in this region which may represent consolidation, or hematoma. The left lung remains clear. There is minimal blunting right costophrenic angle which may represent a small effusion. XR/XR chest 1V IMPRESSION: Interval increase in right lower lobe airspace disease with possible minimal right pleural effusion. Multiple right-sided rib fractures are now noted, with faint adjacent density which may represent consolidation, contusion or hematoma. Electronically authenticated by: VERITO GUZMAN Date: 06/15/2023 08:19
[2023-06-15] MEDS: 0.9 % SODIUM CHLORIDE 1,000 ML 999 ML IV (07:51)
[2023-06-15] MEDS: CEFTRIAXONE 1,000 MG in 0.9 % SODIUM CHLORIDE 50 ML 100 MG IV (07:52)
--- OUTSIDE RECORDS SUMMARY | 2023-06-15 07:59 | XMS_ITS | CCD ---
Author Name Unknown Address [address] [place] [address] Organization [facility] Care Team Providers Care Educational Technology Specialist Name Role Phone PHYSICIAN, DEFAULT Unavailable Unavailable PHYSICIAN, DEFAULT Unavailable Unavailable Micheal Gutiérrez Unavailable Unavailable Unavailable Micheal Gutiérrez MD Primary Care Provider [phone] Micheal Gutiérrez MD Primary Care Provider [phone] Unavailable Unavailable MD Micheal Gutiérrez Primary Care Provider [phone] MD iDno Guzman Attending Provider [phone] Micheal Gutiérrez MD Primary Care Provider [phone] Micheal Gutiérrez MD Primary Care Provider [phone] NIRMALA .DEVON Consulting Unavailable LAKSHMIPATHY ., NARENDLEOATH Attending Diann vailable LAKSHMIPATHY ., NARALINAATH Admitting Diann vailable HOBrenden ., DR BURTON Primary Care Unavailable LAKSHMIPATHY ., NARENDRANATH Attending Diann vailable LAKSHMIPATHY ., NARENDRANATH Consulting Diann vailable LAKSHMIPATHY ., JACQUESATH Admitting Diann vailable MARLA .DR BURTON Primary Care Unavailable RICHA .ANAHY Admitting Unavailable RICHA .ANAHY Attending Unavailable DR DARIAN BUTTS Consulting Unavailable HOBrenden ., DR BURTON Primary Care Unavailable ANAHY BURNETT Consulting Unavailable NATALIE BRAUN Consulting Unavailab leslie Wilcox, DR MULTANI Admitting Unavailable SHANIQUA ., DR MULTANI Attending Unavailable MARLA ., DR BURTON Primary Care Unavailable PRIYA FAULKNER Consulting UnavailINGA Barragan Consulting Unavailable ZIEBER, DR DARIAN Taylor Consulting Unavailable PAY ., DR CASE Admitting Unavailable PAY ., DR CASE Attending Unavailable HOY ., DR BURTON Primary Care Unavailable PAY ., DR CASE Consulting Unavailable MCWILLIAMS ., MR HOLBROOK Consulting Unavailable ERWIN, SHUKRI Consulting Unavailable HOY ., DR BURTON Consulting Unavailable HOY ., DR BURTON Primary Care Unavailable HOY ., DR BURTON Attending Unavailable HOY ., DR BURTON Admitting Unavailable ZIEBER, DR DARIAN Taylor Consulting Unavailable LESLIE, ANAMARIA Consulting Unavailable LAKSHMIPATHY ., NARENDLEOATH Attending Diann vailable LAKSHMIPATHY ., NARELISEO Consulting Diann vailable LAKSHMIPATHY ., MYNOR Admitting Diann [...] Unavailable HOY ., DR BURTON Consulting Unavailable HERTEL, DR YENIFER Puckett Consulting Unavailable HOY ., [...] BURTON Primary Care Unavailable HOY ., DR MICHEAL Garcia Unavailable HOY ., DR BURTON Attending Unavailable HAY ., DR MULTANI Admitting Unavailable HAY ., DR MULTANI Attending Unavailable HOY ., DR BURTON Primary Care Unavailable HAY ., DR MULTANI Consulting Unavailable YANNICK POLANCO Consulting Unavailable DEEPA, GAURAV Admitting Unavailable GAURAV ARENAS Attending Unavailable MARLA ., DR BURTON Primary Care Unavailable GAURAV [...] Unavailable ZIEBER, DR DARIAN Taylor Consulting Unavailable HOOD CAROLINA Consulting Unavailable HOY ., DR BURTON Primary Care Unavailable HOY ., DR BURTON Attending Unavailable HOY ., DR BURTON Admitting Unavailable GRILLIS ., DR SHUKRI Hannon Admitting Unavaila ble HOY ., DR BURTON Primary Care Unavailable GRILLIS ., DR SHUKRI Hannon Attending Unavaila ble HOY ., DR BURTON Primary Care Unavailable HOY ., DR BURTON Admregine Unavailable DENNIS, DR LAURO Tarango Consulting Unavailabl e HOY ., DR BURTON Attending Unavailable HOY ., DR BURTON Consulting Unavailable HOY ., DR BURTON Admitting Unavailable HOY ., DR BURTON Attending Unavailable HOY ., DR BURTON Primary Care Unavailable REINECK, DR ALVINA Bell Consulting Unavailabl e ZIEBER, DR DARIAN Taylor Consulting Unavailable SHAIKH Carlos OTERO Consulting Unavailable HOY ., DR BURTON Primary Care Unavailable REINECK, DR ALVINA Bell Consulting Unavailabl e REINECK, DR ALVINA Bell Admitting Unavailabl e REINECK, DR ALVINA Bell Attending UnavailMICHEAL Murray Consulting Unavailable MD Micheal Gutiérrez Primary Care Provider [phone] MD Shukri Francisco Emergency Provider [phone] DO Jean-Pierre Otero Admit Provider [phone] DO Jean-Pierre Otero Attending Provider Micheal Gutiérrez MD Primary Care Provider [phone] Dr. Lauro Collins Attending Unava ilrex Collins, Dr. Lauro Tang Referring Unava ilable Marla, Dr. Micheal Floyd Primary Care Unavail able Rochelle Benitez Attending Unavailable Rochelle Benitez Referring Unavailable Marla, Dr. Micheal Floyd Primary Care Unavail able Marla, Dr. Micheal Floyd Primary Care Unavail able Marla, Dr. Micheal Floyd Primary Care Unavail able Marla, Dr. Micheal Floyd Primary Care Unavail able Dennis, Dr. Lauro Tang Attending Unava ilable Dennis, Dr. Lauro Tang Referring Unava ilable Marla, Dr. Micheal Floyd Primary Care Unavail able Dennis, Dr. Lauro Tang Attending Unava ilable Dennis, Dr. Lauro Tang Referring Unava ilable Marla, Dr. Micheal Floyd Primary Care Unavail able MARLA, MICHEAL Jennings Primary Care Unavailable PLENATEIA HANSEL Attending Unavailable HOY, MICHEAL M Primary Care Unavailable PLESCIA HANSEL Attending Unavailable HOY, MICHEAL M Primary Care Unavailable [facility] Attending Unavailable IGOR GUTIÉRREZLAS M Primary Care Unavailable HANSEL OTERO Attending Unavailable Chad Singhia Admitting Unavailable CopseyChadia Attending Unavailable Hoy, Micheal M Primary Care Unavailable Rosie Garces Consulting Unavailable Hoy, Micheal M Primary Care Unavailable Jean-Pierre Otero Admitting Unavailable Prasanna Solomon Attending Unavailable Laura Collins Consulting Unavailable Saige Bassett Consulting Unavailable Lauro Rondon Consulting Unavail able Glenn Kapoor Consulting Unavailable Clifford Hager Consulting Unavailab Rochelle Gann Consulting Unavailable Rea Avalos Consulting Unavailable Ivett Shell Consulting Unavailab Maggie Vidales Consulting Unavailable Indira Borges Consulting Unavailable Patsy Pantoja Consulting Unavailable Allergies Allergy Classification Reported Allergen(s) Allergy Type Date of Onset Reaction(s) Facility (14 sources) diphenhydrAMINE; Translations: [diphenhydrAMINE] Drug Allergy [facility] 250 DO Work Phone: (20 sources) Ticagrelor; Translations: [Brilinta TABS] Drug Allergy 2 Shortness of Breath [facility] (9 sources) Angiotensin Converting Enzyme (Jennifer) Inhibitors; Translations: [JENNIFER Inhibitors] Allergy to drug (finding) Hypotension [facility] 250 DO Work Phone: (5 sources) Aspirin; Translations: [Aspirin TABS] Drug Allergy Other [facility] 250 DO Work Phone: (1 source) Ticagrelor; Translations: [TICAGRELOR] Drug Allergy 2 [facility] (1 source) diphenhydrAMINE Drug Allergy 4 [facility] Repository Medications Current Medications Medication Drug [...] pen injector Active 1.2 MG SUBCUT Daily 6 July 15, 2021 1:00am 0.6 mg subcu daily [...] Comment on above: Take 1 capsule by [facility] twice daily for 7 [...] 1 tablet by sully th twice daily. atorvastatin 20 mg oral tablet [...] daily Quantity: 180 Refills: 3 Ordered: 05-Feb-2023 Lauro Collins DO Start : 05-Feb-2023 Active take 0.5 capsule [...] with radiology test) (2 sources) Start: End: iv contrast (will be provided with radiology [...] sources) Angiotensin Converting Enzyme Inhibitor Start: 07-07-19 22 End: 07-15-19 22 take 10 mg by mouth once daily [...] Corpak) Cans: 4.5 per day 2860 mL 11/20/2021 Suspended Start: 11-20-2021 nutritional burrell pplements [...] Corpak) Cans: 4.5 per day 2860 mL 11/20/2021 Active Comment on above: 1,430 mL/day [...] gram-1.5 kcal/mL liqd (2 sources) Start: 02-04-20 22 take 250 mL enteral route every three hours nutritional supplements 0.07 gram-1.5 kcal/mL liqd 250 mL by FEEDING TUBE route every 3 hours. Bolus 250 mL Nutren 1.5 every 3 hours during waking hours (total of 6 bolus feeds per day); water flush of 90 mL pre and post bolus feeds 37503 mL 02/03/2022 Active Comment on above: 250 [...] mg tablet take 1 tablet by sully th three times daily Pantoprazole Sodium 40 MG [...] on above: Take 1 tablet by uslly twice daily. traZODone hydrochloride 50 mg oral tablet (14 sources) Serotonin Reuptake Inhibitor Start: 12-18-19 traZODone (DESYREL) 50 mg tablet take 1 tablet by mouth at bedtim e traZODone HCl - 100 MG Oral Tablet TAKE 1 TABLET AT BEDTIME. 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) drug therapy; Translations: [OTH CARE HOME CURRENT DRUG THERAPY] Onset: 10-06-2022 Episodic Other aftercare (1 source) senior care (current) use of anticoagulants; Translations: [CERTIFIED ANESTHESIOLOGIST ASSISTANT CURRNT USE ANTICOAGULANTS] Onset: 10-06-2022 Episodic Other aftercare (1 source) senior care (current) use of insulin; Translations: [CERTIFIED ANESTHESIOLOGIST ASSISTANT CURRENT USE OF INSULIN] Onset: 10-06-2022 Episodic [...] gastrointestinal disorders (2 sources) Gastrostomy status; Translations: [GASTROSTOMY STATUS] Onset: 07-10-2022 Chronic Other gastrointestinal disorders (3 sources) Dysphagia; Translations: [Dysphagia, unspecified] 07-14-2021 Episodic Other gastrointestinal disorders (1 source) Constipation, unspecified; Translations: [CONSTIPATION UNSPECIFIED] Onset: 10-06-2022 Episodic Other hereditary and degenerative nervous system [...] [PERSONAL HX OTH MALIG NEOPLASM SKIN] Onset: 05-16-2023 Episodic Other nutritional; endocrine; and metabolic disorders [...] [Peripheral vascular disease, unspecified] Onset: 10-06-2022 Chronic Residual codes; unclassified (11 sources) Body mass index 20-24 - normal; Translations: [Body Mass Index between 19-24, adult] Episodic Residual codes; unclassified (1 source) Other specified postprocedural states; Translations: [[facility] SPECIFIED POSTPROCEDURAL STATES] Onset: 08-20-2022 Episodic Septicemia (except in labor) (3 sources) [...] [Hypothyroidism, unspecified] Onset: 11-21-2021 11-21-2021 Chronic Unclassified (4 sources) LOW BACK PAIN, UNSPECIFIED; Translations: [LOW BACK PAIN, UNSPECIFIED] Onset: 07-03-2022 Unclassified (1 source) CONTACT W/AND (SUSP) EXPOS COVID-19; Translations: [CONTACT W/AND (SUSP) EXPOS COVID-19] Onset: 08-20-2022 Unclassified (1 source) 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; Translations: [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] Onset: 08-04-2022 Unclassified (1 source) Pressure ulcer of sacral region, unstageable; Translations: [Pressure ulcer of sacral region, unstageable] Onset: 05-31-2023 Past or Other Problems Problem Classification Problem Date Documented Da te Episodic/Chronic Abdominal pain (4 sources) Right upper quadrant pain; Translations: [RIGHT UPPER QUADRANT PAIN] Onset: 2 Episodic Administrative/social admission (5 sources) [...] Episodic Coronary atherosclerosis and other heart disease (1 source) Presence of coronary angioplasty implant and graft; Translations: [PRESENCE COR ANGPLSTY IMPLANT AND GRAFT] Onset: 3 Episodic E Codes: Fall (1 source) Unspecified [...] cardiac arrest] Onset: 2 11-10-2021 Episodic Other fractures (1 source) Unspecified fracture of first lumbar vertebra, initial encounter for closed fracture; Translations: [UNS FX FIRST LUMB VERT INIT CLOS FX] Onset: 3 Episodic Other gastrointestinal disorders (19 sources) Diarrhea; Translations: [Diarrhea, unspecified] Onset: 2 11-10-2021 Episodic Other gastrointestinal disorders (19 sources) Pharyngeal dysphagia; Translations: [Dysphagia, pharyngeal phase] Onset: 2 11-15-2021 Episodic Other gastrointestinal disorders (4 sources) Diarrhea, unspecified; Translations: [DIARRHEA UNSPECIFIED] Onset: 2 Episodic Other gastrointestinal disorders (1 source) Dysphagia, unspecified; Translations: [Dysphagia, unspecified] Onset: 3 Episodic Other nutritional; endocrine; and metabolic disorders (7 sources) Adult failure to thrive syndrome; Translations: [Adult failure to thrive] Onset: 2 Episodic Pneumonia (except that caused by tuberculosis or sexually transmitted disease) (4 sources) Pneumonia; Translations: [Pneumonia, unspecified organism] Onset: 3 07-07-2021 Episodic Respiratory failure; insufficiency; arrest (adult) (5 sources) Alveolar hypoventilation; Translations: [Respiratory failure, unspecified with hypoxia] Onset: 3 07-07-2021 Episodic Superficial injury; contusion (1 source) Contusion of lower back and pelvis, initial encounter; Translations: [CONTUSION LOWER BACK PELVIS INITIAL] Onset: 2 Episodic Unclassified (1 source) LOW BACK PAIN, UNSPECIFIED; Translations: [LOW BACK PAIN, UNSPECIFIED] Onset: 3 Results Test Name Value Interpretation Reference Range Facility BRIAN 05-28-2023 [facility]OV Office Visit ([facility] TORSTENFRANKI MCDANIELS ([id number]) 1940 M Date Time Provider Department 05/28/23 9:30 AM HANSEL OTERO During your visit today, we recorded the following information about you: Pulse Blood pressure Weight Height 80/minute 136/71 61.2 kg 1.708 m Hansel Otero PA-C 05/28/2023 4:10 PM Signed HISTORY AND PHYSICAL EXAMINATION SERVICE DATE: 05/28/2023 SERVICE TIME: PRIMARY CARE PHYSICIAN: Micheal Gutiérrez MD Subjective CHIEF COMPLAINT: PEG tube change HPI: This is a 83 year old male who presents to out patient clinic for PEG tube change he is taking Plavix and has a bumper tube. Patient will need to return to out patient clinic after holding Plavix . FUNCTIONAL STATUS: PAST MEDICAL HISTORY Diagnosis Date CHF (congestive [...] Shortness of Breath COMPLETE REVIEW OF SYSTEMS: Objective PHYSICAL EXAM: Physical Exam Performed: BP 136/71 Pulse 80 Ht 5' 7.244 (1.71m) Wt 135 lb (61.2kg) SpO2 94% BMI 20.99 kg/(m2). DATA: Diagnostic tests reviewed for today's visit: Assessment/Plan 1) patient with deterating G tube here for replacement on eliquis 2) changed cap 3) RTC after holding eliquis SIGNATURE: Hansel Otero PA-C PATIENT NAME: Franki Hernandez DATE: May 28, 2023 TIME: 11:52 AM Allergies As of Date: 05/28/2023 Noted Allergy Reaction TICAGRELOR 11/10/2021 12 - Shortness of Breath Date Reviewed: 05/28/2023 Reviewed by: Мария Sharma MA - Fully Assessed Reason for Visit: Follow Up [171] Primary Visit Diagnosis:Malnutrition of moderate degree (HCC) [E44.0] Order(s):[facility] TO [facility] [[id number]] Order #: [id number]: 1 Prescriptions as of 05/28/2023 - atorvastatin (LIPITOR) 20 mg tablet Take 20 mg by mouth once daily. - carvedilol (COREG) 12.5 mg tablet Take 12.5 mg by mouth two times a day with meals. - finasteride (PROSCAR) 5 mg tablet Take 1 tablet by mouth once daily. - nutritional supplements 0.07 gram-1.5 kcal/mL liqd 250 mL by FEEDING TUBE route every 3 hours. Bolus 250 mL Nutren 1.5 every 3 hours during waking hours (total of 6 bolus feeds per day); water flush of 90 mL pre and post bolus feeds - pantoprazole (PROTONIX) 2 mg/mL oral liquid Take 10 mL by mouth DAILY (6 AM). - Endgame ULTRA TEST test strip use 1 TEST STRIP to TEST BLOOD SUGAR twice a day - LANTUS SOLOSTAR U-100 INSULIN 100 unit/mL (3 mL) inject 10 unit subcutaneously daily - albuterol (PROVENTIL) 2.5 mg /3 mL (0.083 %) nebulizer solution Inhale 2.5 mg as instructed every 6 hours as needed. - clopidogrel (PLAVIX) 75 mg tablet Take 75 mg by mouth once daily. - budesonide (PULMICORT) 0.25 mg/2 mL nebulizer solution Use 0.25 mg via nebulizer twice daily. - levothyroxine (SYNTHROID) 75 mcg tablet Take 75 mcg by mouth daily before breakfast. - ferrous sulfate 220 mg (44 mg iron)/5 mL elixir Take 220 mg by mouth once daily. - HYDROcodone-Acetaminophen (NORCO) 7.5-325 mg per tablet Take 1 tablet by mouth every 4 hours as needed for pain. 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] 11/21/2021 Hypothyroidism [E03.9] 11/21/2021 Bradycardia [R00.1] 11/21/2021 Urinary retention [R33.9] 11/21/2021 Failure to thrive in adult [R62.7] 01/24/2022 Encounter Status:[facility] (GASTA5) FRANKI HERNANDEZ ([id number]) 1940 M Date Time Provider Department 05/28/23 CGRT DIETITIAN GASTA5 During your visit today, we recorded the following information about you: Adam Mercado 05/28/2023 3:16 PM Signed Referred by: Hansel Otero PA-C Dx: E44.[address] 05/28/2023 4:37 PM Signed Received consultation from Hansel Otero PA-C for malnutrition of moderate degree, revision of ulcer. Asked for Medical Nutrition consult for tube feeding evaluation. Of note pt was seen by general surgery for tube feeding tube eval and was determined it needed replaced as was cracked and had mold. Pt came back for exchange and did not hold eliquis so the tube was not exchanged but appointment set for 06/04/23. Pt was last seen by CC RD during admit on 02/02/22. Recommendations: 1) Suggest Nutrition Therapy referral for tube feed assessement; but will check with Dr. Munoz as well prior to sending to NT. Aneta Ross RD, LD, [facility] ; Aneta Ross RD 05/31/2023 9:36 AM Signed Will forward to NT coordinator for scheduling. Aneta Ross RD, WISAM, [facility] ; Allergies As of Date: 05/28/2023 Noted Allergy Reaction TICAGRELOR 11/10/2021 12 - Shortness of Breath Date Reviewed: 05/28/2023 Reviewed by: Мария Sharma MA - Fully Assessed Reason for Visit: New Patient Evaluation [154] Prescriptions as of 05/31/2023 - atorvastatin (LIPITOR) 20 mg tablet Take 20 mg by mouth once daily. - carvedilol (COREG) 12.5 mg tablet Take 12.5 mg by mouth two times a day with meals. - finasteride (PROSCAR) 5 mg tablet Take 1 tablet by mouth once daily. - nutritional supplements 0.07 gram-1.5 kcal/mL liqd 250 mL by FEEDING TUBE route every 3 hours. Bolus 250 mL Nutren 1.5 every 3 hours during waking hours (total of 6 bolus feeds per day); water flush of 90 mL pre and post bolus feeds - pantoprazole (PROTONIX) 2 mg/mL oral liquid Take 10 mL by mouth DAILY (6 AM). - ONETOUCH ULTRA TEST test strip use 1 TEST STRIP to TEST BLOOD SUGAR twice a day - LANTUS SOLOSTAR U-100 INSULIN 100 unit/mL (3 mL) inject 10 unit subcutaneously daily - albuterol (PROVENTIL) 2.5 mg /3 mL (0.083 %) nebulizer solution Inhale 2.5 mg as instructed every 6 hours as needed. - clopidogrel (PLAVIX) 75 mg tablet Take 75 mg by mouth once daily. - budesonide (PULMICORT) 0.25 mg/2 mL nebulizer solution Use 0.25 mg via nebulizer twice daily. - levothyroxine (SYNTHROID) 75 mcg tablet Take 75 mcg by mouth daily before breakfast. - ferrous sulfate 220 mg (44 mg iron)/5 mL elixir Take 220 mg by mouth once daily. - HYDROcodone-Acetaminophen (NORCO) 7.5-325 mg per tablet Take 1 tablet by mouth every 4 hours as needed for pain. 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 Reports that pt's G tube is broken, split from the cap to the abdomen. Denies pain. Receives Glucerna 1.5 bolus feed for a total of 6 bottles per day. Leakage around G tube site, brownish in color, resembles color of tube feed. Last placement- 02/02/2022: 20 Fr PEG placed using the pull technique Scheduled w/ Dr. Guan Allergies As of Date: 05/27/2023 Noted Allergy Reaction TICAGRELOR 11/10/2021 12 - Shortness of Breath Date Reviewed: 02/03/2022 Reviewed by: Ольга Omalley, VALE - Fully Assessed Reason for Visit: Patient Question [1477] Cmt: G tube Prescriptions as of 05/27/2023 - finasteride (PROSCAR) 5 mg tablet Take 1 tablet by mouth once daily. - nutritional supplements 0.07 gram-1.5 kcal/mL liqd 250 mL by FEEDING TUBE route every 3 hours. Bolus 250 mL Nutren 1.5 every 3 hours during waking hours (total of 6 bolus feeds per day); water flush of 90 mL pre and post bolus feeds - pantoprazole (PROTONIX) 2 mg/mL oral liquid Take 10 mL by mouth DAILY (6 AM). - pantoprazole oral liquid 2 mg/mL (CPD) Take 10mL by mouth daily at 6am - ONETOUCH ULTRA TEST test strip use 1 TEST STRIP to TEST BLOOD SUGAR twice a day - carvedilol (COREG) 12.5 mg tablet - diphenoxylate-atropine (LOMOTIL) 2.5-0.025 mg per tablet - erythromycin ethyl succinate (E.E.S.) 200 mg/5 mL suspension give 2 teaspoonfuls VIA G-TUBE twice a day - furosemide (LASIX) 10 mg/mL solution give 2 milliliters PER G-TUBE once daily as directed - hyoscyamine (LEVSIN) 0.125 mg/mL solution TAKE 1 MLS BY MOUTH FOUR TIMES A DAY IF NEEDED - HYOSYNE 0.125 mg/mL solution TAKE 1 MLS BY MOUTH FOUR TIMES A DAY IF NEEDED - INSULIN ASPART U-100 SUBCUTANEOUS Inject subcutaneously. - insulin detemir U-100 (LEVEMIR) 100 unit/mL injection Inject subcutaneously. - LANTUS SOLOSTAR U-100 INSULIN 100 unit/mL (3 mL) inject 10 unit subcutaneously daily - levoFLOXacin (LEVAQUIN) 500 mg tablet take 1 tablet VIA G-TUBE once daily CRUSH TABLET WITH SMALL AMOUNT OF WATER PER TUBE - pantoprazole DR (PROTONIX) 40 mg tablet - traZODone (DESYREL) 50 mg tablet - HUMALOG KWIKPEN INSULIN 100 unit/mL INJECT SUBCUTANEOUSLY WITH MEALS 4 UNITS IF BS LESS THAN 120, 8 UNITS IF BS GREATER THAN 120 - apixaban (ELIQUIS) 5 mg tab(s) Take 1 tablet by mouth twice daily. - nutritional supplements (NUTREN 1.5) 0.07 gram-1.5 kcal/mL [...] tube (Nasogastric- Corpak) Cans: 4.5 per day - phosphorus (PHOSPHA 250 NEUTRAL) 250 mg tablet Take 1 tablet by mouth once daily. - albuterol (PROVENTIL) 2.5 mg /3 mL (0.083 %) nebulizer solution Inhale 2.5 mg as instructed every 6 hours as needed. - clopidogrel (PLAVIX) 75 mg tablet Take 75 mg by mouth once daily. - ENTRESTO 24-26 mg tablet Take 1 tablet by mouth twice daily. - budesonide (PULMICORT) 0.25 mg/2 mL nebulizer solution Use 0.25 mg via nebulizer twice daily. - levothyroxine (SYNTHROID) 75 mcg tablet Take 75 mcg by mouth daily before breakfast. - ferrous sulfate 220 mg (44 mg iron)/5 mL elixir Take 220 mg by mouth once daily. - HYDROcodone-Acetaminophen (NORCO) 7.5-325 mg per tablet Take 1 tablet by mouth every 4 hours as needed for pain. 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 LM with this RNs contact info Allergies As of Date: 05/26/2023 Noted Allergy Reaction TICAGRELOR 11/10/2021 12 - Shortness of Breath Date Reviewed: 02/03/2022 Reviewed by: Ольга Omalley RN - Fully Assessed Reason for Visit: Appointment [186] Returning Patient's Call [[id number]] Prescriptions as of 05/26/2023 - finasteride (PROSCAR) 5 mg tablet Take 1 tablet by mouth once daily. - nutritional supplements 0.07 gram-1.5 kcal/mL liqd 250 mL by FEEDING TUBE route every 3 hours. Bolus 250 mL Nutren 1.5 every 3 hours during waking hours (total of 6 bolus feeds per day); water flush of 90 mL pre and post bolus feeds - pantoprazole (PROTONIX) 2 mg/mL oral liquid Take 10 mL by mouth DAILY (6 AM). - pantoprazole oral liquid 2 mg/mL (CPD) Take 10mL by mouth daily at 6am - QwaqTOUCH ULTRA TEST test strip use 1 TEST STRIP to TEST BLOOD SUGAR twice a day - carvedilol (COREG) 12.5 mg tablet - diphenoxylate-atropine (LOMOTIL) 2.5-0.025 mg per tablet - erythromycin ethyl succinate (E.E.S.) 200 mg/5 mL suspension give 2 teaspoonfuls VIA G-TUBE twice a day - furosemide (LASIX) 10 mg/mL solution give 2 milliliters PER G-TUBE once daily as directed - hyoscyamine (LEVSIN) 0.125 mg/mL solution TAKE 1 MLS BY MOUTH FOUR TIMES A DAY IF NEEDED - HYOSYNE 0.125 mg/mL solution TAKE 1 MLS BY MOUTH FOUR TIMES A DAY IF NEEDED - INSULIN ASPART U-100 SUBCUTANEOUS Inject subcutaneously. - insulin detemir U-100 (LEVEMIR) 100 unit/mL injection Inject subcutaneously. - LANTUS SOLOSTAR U-100 INSULIN 100 unit/mL (3 mL) inject 10 unit subcutaneously daily - levoFLOXacin (LEVAQUIN) 500 mg tablet take 1 tablet VIA G-TUBE once daily CRUSH TABLET WITH SMALL AMOUNT OF WATER PER TUBE - pantoprazole DR (PROTONIX) 40 mg tablet - traZODone (DESYREL) 50 mg tablet - HUMALOG KWIKPEN INSULIN 100 unit/mL INJECT SUBCUTANEOUSLY WITH MEALS 4 UNITS IF BS LESS THAN 120, 8 UNITS IF BS GREATER THAN 120 - apixaban (ELIQUIS) 5 mg tab(s) Take 1 tablet by mouth twice daily. - nutritional supplements (NUTREN 1.5) 0.07 gram-1.5 kcal/mL [...] tube (Nasogastric- Corpak) Cans: 4.5 per day - phosphorus (PHOSPHA 250 NEUTRAL) 250 mg tablet Take 1 tablet by mouth once daily. - albuterol (PROVENTIL) 2.5 mg /3 mL (0.083 %) nebulizer solution Inhale 2.5 mg as instructed every 6 hours as needed. - clopidogrel (PLAVIX) 75 mg tablet Take 75 mg by mouth once daily. - ENTRESTO 24-26 mg tablet Take 1 tablet by mouth twice daily. - budesonide (PULMICORT) 0.25 mg/2 mL nebulizer solution Use 0.25 mg via nebulizer twice daily. - levothyroxine (SYNTHROID) 75 mcg tablet Take 75 mcg by mouth daily before breakfast. - ferrous sulfate 220 mg (44 mg iron)/5 mL elixir Take 220 mg by mouth once daily. - HYDROcodone-Acetaminophen (NORCO) 7.5-325 mg per tablet Take 1 tablet by mouth every 4 hours as needed for pain. 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] 11/21/2021 Hypothyroidism [E03.9] 11/21/2021 Bradycardia [R00.1] 11/21/2021 Urinary retention [R33.9] 11/21/2021 Failure to thrive in adult [R62.7] 01/24/2022 Encounter Status:Closed by ANNETTA SWANSON on 05/26/23 Normal [facility] Office Visit (Cardiology)on 02-04-2023 Follow-up visit Diagnoses/Problems Assessed Body mass index (BMI) of 19.9 or less in adult (Z68.1) CHF (NYHA class II, ACC/AHA stage C) (428.0) (I50.9) 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 Cardizem SR 60 MG CP121/2 tab twice daily Carvedilol 12.5 MG Oral TabletTAKE 1/2 TABLET TWICE DAILY. Constulose ANDA57mi in moring Eliquis 5 MG Oral TabletTake [...] 09/11/2021 9:51 (more content not included)... Normal [place] Tobacco Screening.on 023 Fall risk assessment b) One or more fall s in the last year [facility] Tangler 250 DO Work Phone: Tobacco use status [facility] a) Yes [facility] Tangler 250 DO Work Phone: Tobacco Screening. Yes [facility] [employer] 250 DO Work Phone: Lab Reportson 01-01-2023 Lab Reports [id number]#1.00CD:127 Normal [facility] Lab Reports [id number]#1.00CD:127 Normal [facility] Lab Reports [id number]#1.00CD:127 [facility] Lab Reports [id number]#1.00CD:127 [facility] Lab Reports [id number]#1.00CD:127 [facility] Lab Reports [id number]#1.00CD:127 [facility] Lab Reports [id number]#1.00CD:127 [facility] Lab Reports [id number]#1.00CD:127 [facility] Lab Reports [id number]#1.00CD:127 [facility] Lab Reports [id number]#1.00CD:127 [facility] Lab Reportson 12-21-2022 Lab Reports [id number]#1.00CD:127 [facility] Lab Reports [id number]#1.00CD:127 [facility] Lab Reports [id number]#1.00CD:127 [facility] Lab Reports [id number]#1.00CD:127 [facility] Lab Reports [id number]#1.00CD:127 [facility] Lab Reports [id number]#1.00CD:127 [facility] Lab Reports [id number]#1.00CD:127 Normal [facility] Lab Reports [id number]#1.00CD:127 Normal [facility] Lab Reports [id number]#1.00CD:127 Normal [facility] Lab Reports [id number]#1.00CD:127 Normal [facility] Lab Reports [id number]#1.00CD:127 Normal [facility] Basic Metabolic Panelon 11-21 Anion gap [Moles/Vol] Not performed Normal 6.0-15.0 [facility] Comment on above: Performed By: #### M G, TSH3, CBC, DIFF CBC, PT, PTT, CMP #### [facility] [address] Calcium [Mass/Vol] 8.7 mg/dL Normal 8.6-10.3 [facility] Comment on above: Performed By: #### M G, TSH3, CBC, DIFF CBC, PT, PTT, CMP #### [facility] [address] [place] [address] [place] Chloride [Moles/Vol] 102 mmol/L Normal 98-107 [facility] Comment on above: Performed By: #### M G, TSH3, CBC, DIFF CBC, PT, PTT, CMP #### [facility] [address] [place] [address] [place] CO2 [Moles/Vol] 27.9 mmol/L Normal 21.0-31.0 [facility] Comment on above: Performed By: #### M G, TSH3, CBC, DIFF CBC, PT, PTT, CMP #### [facility] [address] [place] [address] [place] Creatinine [Mass/Vol] 0.93 mg/dL Normal 0.70-1.30 [facility] Comment on above: Performed By: #### M G, TSH3, CBC, DIFF CBC, PT, PTT, CMP #### [facility] [address] Creatinine Clr Calc Pharmacy 55.82 [facility] Comment on above: Performed By: #### M G, TSH3, CBC, DIFF CBC, PT, PTT, CMP #### [address] GFR/1.73 sq M.predicted MDRD (S/P/Bld) [Vol rate/Area] mL/min/{1.73_m2} [facility] Comment on above: Performed By: #### M G, TSH3, CBC, DIFF CBC, PT, PTT, CMP #### [address] Glucose [Mass/Vol] 173 mg/dL Significant change up 70-100 [facility] Comment on above: Result Comment: [facility] Glucose Reference Range is dependent on time and content of last meal. Glucose of more than 200 mg/dL in a nonstressed, ambulatory subject supports the diagnosis of Diabetes Mellitus. ADA recommended reference range Performed By: #### M G, TSH3, CBC, DIFF CBC, PT, PTT, CMP #### [address] Potassium Normal 3.5-5.1 [facility] Comment on above: Result Comment: Spec imen hemolyzed, redraw requested Performed By: #### M G, TSH3, CBC, DIFF CBC, PT, PTT, CMP #### [address] Sodium [Moles/Vol] 136 mmol/L Normal 136-145 [facility] Comment on above: Performed By: #### M G, TSH3, CBC, DIFF CBC, PT, PTT, CMP #### [address] Urea nitrogen [Mass/Vol] 47 mg/dL High 7-25 [facility] Comment on above: Performed By: #### M G, TSH3, CBC, DIFF CBC, PT, PTT, CMP #### [address] Diff and CBCon 11-30-2022 Basophils/100 WBC (Bld) 0 % Normal 0-2 [facility] Comment on above: Performed By: #### M G, TSH3, CBC, DIFF CBC, PT, PTT, CMP #### [address] Eosinophils/100 WBC (Bld) 0 % Low 1-3 [facility] Comment on above: Performed By: #### M G, TSH3, CBC, DIFF CBC, PT, PTT, CMP #### [address] Erythrocyte distribution width (RBC) [Ratio] 13.4 % Normal 12.0-14.8 [facility] Comment on above: Performed By: #### M G, TSH3, CBC, DIFF CBC, PT, PTT, CMP #### [address] Hematocrit (Bld) [Volume fraction] 33.4 % Low 38.8-50.0 [facility] Comment on above: Performed By: #### M G, TSH3, CBC, DIFF CBC, PT, PTT, CMP #### [address] Hemoglobin (Bld) [Mass/Vol] 11.3 g/dL Low 13.0-17.0 [facility] Comment on above: Performed By: #### M G, TSH3, CBC, DIFF CBC, PT, PTT, CMP #### [address] Lymphocytes/100 WBC (Bld) 13 % Low 18-42 [facility] Comment on above: Performed By: #### M G, TSH3, CBC, DIFF CBC, PT, PTT, CMP #### [address] MCH (RBC) [Entitic mass] 31.2 pg Normal 27.5-35.2 [facility] Comment on above: Performed By: #### M G, TSH3, CBC, DIFF CBC, PT, PTT, CMP #### [facility] [address] [place] [address] MCV (RBC) [Entitic vol] 92.4 fL Normal 83.5-101 [facility] Comment on above: Performed By: #### M G, TSH3, CBC, DIFF CBC, PT, PTT, CMP #### [address] Mean Corpuscular HGB Conc 33.7 g/dL Normal 32.5-35.6 [facility] Comment on above: Performed By: #### M G, TSH3, CBC, DIFF CBC, PT, PTT, CMP #### [address] Microcytosis Slight Normal [facility] Comment on above: Performed By: #### M G, TSH3, CBC, DIFF CBC, PT, PTT, CMP #### [address] Monocytes/100 WBC (Bld) 5 % Normal 2-11 [facility] Comment on above: Performed By: #### M G, TSH3, CBC, DIFF CBC, PT, PTT, CMP #### [address] Ovalocytes Slight Normal [facility] Comment on above: Performed By: #### M G, TSH3, CBC, DIFF CBC, PT, PTT, CMP #### [address] Platelet Estimate Normal Normal Normal [facility] Comment on above: Result Comment: --- 11/30/22727 --- Plt Est previously reported as: Decreased Performed By: #### M G, TSH3, CBC, DIFF CBC, PT, PTT, CMP #### [address] Platelet mean volume (Bld) [Entitic vol] 8.7 fL Normal 6.6-10.1 [facility] Comment on above: Result Comment: PERF ORMED BY: [place] [address] PATHOLOGIST ELECTRIC REFRIGERATOR PREPARER TRINA GARCIA M.D. Performed By: #### M G, TSH3, CBC, DIFF CBC, PT, PTT, CMP #### [address] Platelet Morphology Normal Normal Normal [facility] Comment on above: Result Comment: PERF ORMED BY: [place] [address] PATHOLOGIST ELECTRIC REFRIGERATOR PREPARER TRINA GARCIA M.D. Performed By: #### M G, TSH3, CBC, DIFF CBC, PT, PTT, CMP #### [address] Platelets (Bld) [#/Vol] 216 10*3/uL Normal 150-450 [facility] Comment on above: Performed By: #### M G, TSH3, CBC, DIFF CBC, PT, PTT, CMP #### [address] RBC (Bld) [#/Vol] 3.61 10*6/uL Low 3.90-5.60 [facility] Comment on above: Performed By: #### M G, TSH3, CBC, DIFF CBC, PT, PTT, CMP #### [address] Schistocytes Slight Normal [facility] Comment on above: Performed By: #### M G, TSH3, CBC, DIFF CBC, PT, PTT, CMP #### [address] Segmented neutrophils/100 WBC (Bld) 82 % High 50-70 [facility] Comment on above: Performed By: #### M G, TSH3, CBC, DIFF CBC, PT, PTT, CMP #### [address] WBC (Bld) [#/Vol] 13.3 10*3/uL High 4.1-10.5 [facility] Comment on above: Performed By: #### M G, TSH3, CBC, DIFF CBC, PT, PTT, CMP #### [facility] [address] Magnesiumon 11-30-2022 Magnesium [Mass/Vol] 2.1 mg/dL Normal 1.9-2.7 [facility] Comment on above: Result Comment: PERF ORMED BY: [place] [address] PATHOLOGIST ELECTRIC REFRIGERATOR PREPARER TRINA GARCIA M.D. Performed By: #### M G, TSH3, CBC, DIFF CBC, PT, PTT, CMP #### [address] Redraw Potassiumon Potassium [Moles/Vol] 4.5 mmol/L Normal 3.5-5.1 [facility] Comment on above: Order Comment: SPECI MEN HEMOLYZED, NOTIFIED HERMELINDA Result Comment: PERF ORMED BY: [place] [address] PATHOLOGIST ELECTRIC REFRIGERATOR PREPARER TRINA GARCIA M.D. Performed By: #### M G, TSH3, CBC, DIFF CBC, PT, PTT, CMP #### [address] B-Type Natriuretic Peptideon 11-29-2022 Natriuretic peptide B (Bld) [Mass/Vol] 213.0 pg/mL High 5-100 [facility] Comment on above: Result Comment: PERF ORMED BY: [place] [address] PATHOLOGIST ELECTRIC REFRIGERATOR PREPARER TRINA GARCIA M.D. Performed By: #### M G, TSH3, CBC, DIFF CBC, PT, PTT, CMP #### [address] Basic Metabolic Panelon 07- Anion gap [Moles/Vol] 9.3 mmol/L Normal 6.0-15.0 [facility] Comment on above: Performed By: #### M G, TSH3, CBC, DIFF CBC, PT, PTT, CMP #### [facility] [address] Calcium [Mass/Vol] 8.9 mg/dL Normal 8.6-10.3 [facility] Comment on above: Performed By: #### M G, TSH3, CBC, DIFF CBC, PT, PTT, CMP #### [facility] [address] Chloride [Moles/Vol] 103 mmol/L Normal 98-107 [facility] Comment on above: Performed By: #### M G, TSH3, CBC, DIFF CBC, PT, PTT, CMP #### [facility] [address] CO2 [Moles/Vol] 28.1 mmol/L Normal 21.0-31.0 [facility] Comment on above: Performed By: #### M G, TSH3, CBC, DIFF CBC, PT, PTT, CMP #### [facility] [address] Creatinine [Mass/Vol] 0.91 mg/dL Normal 0.70-1.30 [facility] Comment on above: Performed By: #### M G, TSH3, CBC, DIFF CBC, PT, PTT, CMP #### [facility] [address] Creatinine Clr Calc Pharmacy 57.05 [facility] Comment on above: Performed By: #### M G, TSH3, CBC, DIFF CBC, PT, PTT, CMP #### [place] [address] [place] GFR/1.73 sq M.predicted MDRD (S/P/Bld) [Vol rate/Area] mL/min/{1.73_m2} [facility] Comment on above: Performed By: #### M G, TSH3, CBC, DIFF CBC, PT, PTT, CMP #### [address] Glucose [Mass/Vol] 293 mg/dL High 70-100 [facility] Comment on above: Result Comment: [facility] Glucose Reference Range is dependent on time and content of last meal. Glucose of more than 200 mg/dL in a nonstressed, ambulatory subject supports the diagnosis of Diabetes Mellitus. ADA recommended reference range Performed By: #### M G, TSH3, CBC, DIFF CBC, PT, PTT, CMP #### [facility] [address] Potassium [Moles/Vol] 4.4 mmol/L Normal 3.5-5.1 [facility] Comment on above: Performed By: #### M G, TSH3, CBC, DIFF CBC, PT, PTT, CMP #### [facility] [address] Sodium [Moles/Vol] 136 mmol/L Normal 136-145 [facility] Comment on above: Performed By: #### M G, TSH3, CBC, DIFF CBC, PT, PTT, CMP #### [address] Urea nitrogen [Mass/Vol] 41 mg/dL High 7-25 [facility] Comment on above: Performed By: #### M G, TSH3, CBC, DIFF CBC, PT, PTT, CMP #### [address] Complete Blood Count Auto Di ffon 11-29-2022 Basophils (Bld) [#/Vol] 0.0 10*3/uL Normal 0.0-0.2 [facility] Comment on above: Result Comment: PERF ORMED BY: [place] [address] PATHOLOGIST ELECTRIC REFRIGERATOR PREPARER TRINA GARCIA M.D. Performed By: #### M G, TSH3, CBC, DIFF CBC, PT, PTT, CMP #### [address] Basophils/100 WBC (Bld) 0.1 % Normal . [facility] Comment on above: Performed By: #### M G, TSH3, CBC, DIFF CBC, PT, PTT, CMP #### [address] Eosinophils (Bld) [#/Vol] 0.0 10*3/uL Normal 0.0-0.45 [facility] Comment on above: Performed By: #### M G, TSH3, CBC, DIFF CBC, PT, PTT, CMP #### [address] Eosinophils/100 WBC (Bld) 0.0 % Normal . [facility] Comment on above: Performed By: #### M G, TSH3, CBC, DIFF CBC, PT, PTT, CMP #### [address] Erythrocyte distribution width (RBC) [Ratio] 13.3 % Normal 12.0-14.8 [facility] Comment on above: Performed By: #### M G, TSH3, CBC, DIFF CBC, PT, PTT, CMP #### [address] Hematocrit (Bld) [Volume fraction] 34.5 % Low 38.8-50.0 [facility] Comment on above: Performed By: #### M G, TSH3, CBC, DIFF CBC, PT, PTT, CMP #### [address] Hemoglobin (Bld) [Mass/Vol] 11.6 g/dL Low 13.0-17.0 [facility] Comment on above: Performed By: #### M G, TSH3, CBC, DIFF CBC, PT, PTT, CMP #### [address] Lymphocytes (Bld) [#/Vol] 0.6 10*3/uL Low 1.00-4.8 [facility] Comment on above: Performed By: #### M G, TSH3, CBC, DIFF CBC, PT, PTT, CMP #### [address] Lymphocytes/100 WBC (Bld) 4.1 % Normal . [facility] Comment on above: Performed By: #### M G, TSH3, CBC, DIFF CBC, PT, PTT, CMP #### [address] MCH (RBC) [Entitic mass] 31.0 pg Normal 27.5-35.2 [facility] Comment on above: Performed By: #### M G, TSH3, CBC, DIFF CBC, PT, PTT, CMP #### [address] MCV (RBC) [Entitic vol] 92.6 fL Normal 83.5-101 [facility] Comment on above: Performed By: #### M G, TSH3, CBC, DIFF CBC, PT, PTT, CMP #### [address] Mean Corpuscular HGB Conc 33.5 g/dL Normal 32.5-35.6 [facility] Comment on above: Performed By: #### M G, TSH3, CBC, DIFF CBC, PT, PTT, CMP #### [address] Monocytes (Bld) [#/Vol] 0.7 10*3/uL Normal 0.0-0.8 [facility] Comment on above: Performed By: #### M G, TSH3, CBC, DIFF CBC, PT, PTT, CMP #### [address] Monocytes/100 WBC (Bld) 4.8 % Normal . [facility] Comment on above: Performed By: #### M G, TSH3, CBC, DIFF CBC, PT, PTT, CMP #### [address] Neutrophils (Bld) [#/Vol] 13.2 10*3/uL High 1.8-7.7 [facility] Comment on above: Performed By: #### M G, TSH3, CBC, DIFF CBC, PT, PTT, CMP #### [address] Neutrophils/100 WBC (Bld) 91.0 % Normal . [facility] Comment on above: Performed By: #### M G, TSH3, CBC, DIFF CBC, PT, PTT, CMP #### [address] NRBC% 0.0 /100{WBC} Normal 0-0.5 [facility] Comment on above: Performed By: #### M G, TSH3, CBC, DIFF CBC, PT, PTT, CMP #### [address] Platelet mean volume (Bld) [Entitic vol] 8.4 fL Normal 6.6-10.1 [facility] Comment on above: Performed By: #### M G, TSH3, CBC, DIFF CBC, PT, PTT, CMP #### [address] Platelets (Bld) [#/Vol] 219 10*3/uL Normal 150-450 [facility] Comment on above: Performed By: #### M G, TSH3, CBC, DIFF CBC, PT, PTT, CMP #### [address] RBC (Bld) [#/Vol] 3.72 10*6/uL Low 3.90-5.60 [facility] Comment on above: Performed By: #### M G, TSH3, CBC, DIFF CBC, PT, PTT, CMP #### [address] WBC (Bld) [#/Vol] 14.5 10*3/uL High 4.1-10.5 [facility] Comment on above: Performed By: #### M G, TSH3, CBC, DIFF CBC, PT, PTT, CMP #### [address] Magnesiumon 11-29-2022 Magnesium [Mass/Vol] 2.0 mg/dL Normal 1.9-2.7 [facility] Comment on above: Result Comment: PERF ORMED BY: [place] [address] PATHOLOGIST ELECTRIC REFRIGERATOR PREPARER TRINA GARCIA M.D. Performed By: #### M G, TSH3, CBC, DIFF CBC, PT, PTT, CMP #### [facility] [address] [place] [id number] [facility] Glucose Poct Glucometerson 0 11-28-2022 Commemt1 Glu2: Cleaned Meter Normal [facility] Comment on above: Result Comment: PERF ORMED BY: [place] [address] PATHOLOGIST ELECTRIC REFRIGERATOR PREPARER TRINA GARCIA M.D. Performed By: #### M G, TSH3, CBC, DIFF CBC, PT, PTT, CMP #### [facility] [address] Glucose [Mass/Vol] 392 mg/dL Normal [facility] Comment on above: Result Comment: [place] [facility] Glucose Reference Range is dependent on time and content of last meal. Glucose of more than 200 mg/dL in a nonstressed, ambulatory subject supports the diagnosis of Diabetes Mellitus. Performed By: #### M G, TSH3, CBC, DIFF CBC, PT, PTT, CMP #### [facility] [address] Glucose [Mass/Vol] 222 mg/dL Normal [facility] Comment on above: Result Comment: [place] [facility] Glucose Reference Range is dependent on time and content of last meal. Glucose of more than 200 mg/dL in a nonstressed, ambulatory subject supports the diagnosis of Diabetes Mellitus. PERFORMED BY: [address] [address] PATHOLOGIST ELECTRIC REFRIGERATOR PREPARER TRINA GARCIA M.D. Performed By: #### M G, TSH3, CBC, DIFF CBC, PT, PTT, CMP #### [place] [address] [place] Glucose [Mass/Vol] 322 mg/dL Normal [facility] Comment on above: Result Comment: [place] [facility] Glucose Reference Range is dependent on time and content of last meal. Glucose of more than 200 mg/dL in a nonstressed, ambulatory subject supports the diagnosis of Diabetes Mellitus. PERFORMED BY: [address] [address] PATHOLOGIST ELECTRIC REFRIGERATOR PREPARER TRINA GARCIA M.D. Performed By: #### M G, TSH3, CBC, DIFF CBC, PT, PTT, CMP #### [facility] [address] Basic Metabolic Panelon 07-0 Anion gap [Moles/Vol] 8.6 mmol/L Normal 6.0-15.0 [facility] Comment on above: Performed By: #### M G, TSH3, CBC, DIFF CBC, PT, PTT, CMP #### [facility] [address] Calcium [Mass/Vol] 8.3 mg/dL Low 8.6-10.3 [facility] Comment on above: Performed By: #### M G, TSH3, CBC, DIFF CBC, PT, PTT, CMP #### [facility] [address] Chloride [Moles/Vol] 105 mmol/L Normal 98-107 [facility] Comment on above: Performed By: #### M G, TSH3, CBC, DIFF CBC, PT, PTT, CMP #### [facility] [address] CO2 [Moles/Vol] 26.9 mmol/L Normal 21.0-31.0 [facility] Comment on above: Performed By: #### M G, TSH3, CBC, DIFF CBC, PT, PTT, CMP #### [facility] [address] Creatinine [Mass/Vol] 1.19 mg/dL Normal 0.70-1.30 [facility] Comment on above: Performed By: #### M G, TSH3, CBC, DIFF CBC, PT, PTT, CMP #### [facility] [address] Creatinine Clr Calc Pharmacy 42.72 Normal [facility] Comment on above: Result Comment: PERF ORMED BY: [place] [address] PATHOLOGIST ELECTRIC REFRIGERATOR PREPARER TRINA GARCIA M.D. Performed By: #### M G, TSH3, CBC, DIFF CBC, PT, PTT, CMP #### [facility] [address] GFR/1.73 sq M.predicted MDRD (S/P/Bld) [Vol rate/Area] mL/min/{1.73_m2} Normal [facility] Comment on above: Performed By: #### M G, TSH3, CBC, DIFF CBC, PT, PTT, CMP #### [facility] [address] Glucose [Mass/Vol] 102 mg/dL High 70-100 [facility] Comment on above: Result Comment: [facility] Glucose Reference Range is dependent on time and content of last meal. Glucose of more than 200 mg/dL in a nonstressed, ambulatory subject supports the diagnosis of Diabetes Mellitus. ADA recommended reference range Performed By: #### M G, TSH3, CBC, DIFF CBC, PT, PTT, CMP #### [address] Potassium [Moles/Vol] 4.5 mmol/L Normal 3.5-5.1 [facility] Comment on above: Performed By: #### M G, TSH3, CBC, DIFF CBC, PT, PTT, CMP #### [address] Sodium [Moles/Vol] 136 mmol/L Significant change down 136-145 [facility] Comment on above: Performed By: #### M G, TSH3, CBC, DIFF CBC, PT, PTT, CMP #### [address] Urea nitrogen [Mass/Vol] 50 mg/dL High 7-25 [facility] Comment on above: Performed By: #### M G, TSH3, CBC, DIFF CBC, PT, PTT, CMP #### [address] Complete Blood Count Auto Di ffon 11-27-2022 Basophils (Bld) [#/Vol] 0.0 10*3/uL Normal 0.0-0.2 [facility] Comment on above: Result Comment: PERF ORMED BY: [place] [address] PATHOLOGIST ELECTRIC REFRIGERATOR PREPARER TRINA GARCIA M.D. Performed By: #### M G, TSH3, CBC, DIFF CBC, PT, PTT, CMP #### [address] Basophils/100 WBC (Bld) 0.1 % Normal . [facility] Comment on above: Performed By: #### M G, TSH3, CBC, DIFF CBC, PT, PTT, CMP #### [address] Eosinophils (Bld) [#/Vol] 0.0 10*3/uL Normal 0.0-0.45 [facility] Comment on above: Performed By: #### M G, TSH3, CBC, DIFF CBC, PT, PTT, CMP #### [address] Eosinophils/100 WBC (Bld) 0.0 % Normal . [facility] Comment on above: Performed By: #### M G, TSH3, CBC, DIFF CBC, PT, PTT, CMP #### [address] Erythrocyte distribution width (RBC) [Ratio] 13.7 % Normal 12.0-14.8 [facility] Comment on above: Performed By: #### M G, TSH3, CBC, DIFF CBC, PT, PTT, CMP #### [address] Hematocrit (Bld) [Volume fraction] 30.6 % Low 38.8-50.0 [facility] Comment on above: Performed By: #### M G, TSH3, CBC, DIFF CBC, PT, PTT, CMP #### [address] Hemoglobin (Bld) [Mass/Vol] 10.4 g/dL Low 13.0-17.0 [facility] Comment on above: Performed By: #### M G, TSH3, CBC, DIFF CBC, PT, PTT, CMP #### [address] Lymphocytes (Bld) [#/Vol] 0.7 10*3/uL Low 1.00-4.8 [facility] Comment on above: Performed By: #### M G, TSH3, CBC, DIFF CBC, PT, PTT, CMP #### [address] Lymphocytes/100 WBC (Bld) 4.1 % Normal . [facility] Comment on above: Performed By: #### M G, TSH3, CBC, DIFF CBC, PT, PTT, CMP #### [address] MCH (RBC) [Entitic mass] 31.6 pg Normal 27.5-35.2 [facility] Comment on above: Performed By: #### M G, TSH3, CBC, DIFF CBC, PT, PTT, CMP #### [address] MCV (RBC) [Entitic vol] 93.4 fL Normal 83.5-101 [facility] Comment on above: Performed By: #### M G, TSH3, CBC, DIFF CBC, PT, PTT, CMP #### [address] Mean Corpuscular HGB Conc 33.9 g/dL Normal 32.5-35.6 [facility] Comment on above: Performed By: #### M G, TSH3, CBC, DIFF CBC, PT, PTT, CMP #### [address] Monocytes (Bld) [#/Vol] 0.4 10*3/uL Normal 0.0-0.8 [facility] Comment on above: Performed By: #### M G, TSH3, CBC, DIFF CBC, PT, PTT, CMP #### [address] Monocytes/100 WBC (Bld) 2.0 % Normal . [facility] Comment on above: Performed By: #### M G, TSH3, CBC, DIFF CBC, PT, PTT, CMP #### [address] Neutrophils (Bld) [#/Vol] 16.8 10*3/uL High 1.8-7.7 [facility] Comment on above: Performed By: #### M G, TSH3, CBC, DIFF CBC, PT, PTT, CMP #### [address] Neutrophils/100 WBC (Bld) 93.8 % Normal . [facility] Comment on above: Performed By: #### M G, TSH3, CBC, DIFF CBC, PT, PTT, CMP #### [address] NRBC% 0.2 /100{WBC} Normal 0-0.5 [facility] Comment on above: Performed By: #### M G, TSH3, CBC, DIFF CBC, PT, PTT, CMP #### [address] Platelet mean volume (Bld) [Entitic vol] 8.2 fL Normal 6.6-10.1 [facility] Comment on above: Performed By: #### M G, TSH3, CBC, DIFF CBC, PT, PTT, CMP #### [address] Platelets (Bld) [#/Vol] 239 10*3/uL Normal 150-450 [facility] Comment on above: Performed By: #### M G, TSH3, CBC, DIFF CBC, PT, PTT, CMP #### [address] RBC (Bld) [#/Vol] 3.28 10*6/uL Low 3.90-5.60 [facility] Comment on above: Performed By: #### M G, TSH3, CBC, DIFF CBC, PT, PTT, CMP #### [address] WBC (Bld) [#/Vol] 17.9 10*3/uL High 4.1-10.5 [facility] Comment on above: Performed By: #### M G, TSH3, CBC, DIFF CBC, PT, PTT, CMP #### [facility] [address] [place] [id number] [facility] ECG 12 lead ECGon 11-27-2022 ECG 12 lead ECG [facility] [address] [place] [address] Electrocardiograph Report Signed Patient: Franki Hernandez MR#: [id number] : 1940 Acct:[id number] Age/Sex: 82 / M ADM Date: 11/25/22 Loc: Room: [address] [place] [address] Type: ADM IN Attending Dr: Nelida Aquino [...] By David Cerda DO 11/27 1256 Normal [facility] Glucose Poct Glucometerson 0 11-27-2022 Glucose [Mass/Vol] 199 mg/dL Normal [facility] Comment on above: Result Comment: [facility] Glucose Reference Range is dependent on time and content of last meal. Glucose of more than 200 mg/dL in a nonstressed, ambulatory subject supports the diagnosis of Diabetes Mellitus. PERFORMED BY: [place] [address] PATHOLOGIST ELECTRIC REFRIGERATOR PREPARER TRINA GARCIA M.D. Performed By: #### M G, TSH3, CBC, DIFF CBC, PT, PTT, CMP #### [facility] [address] [place] [address] [place] Commemt1 [facility] Comment on above: Result Comment: Glu2 : WILL NOTIFY DR/RN Performed By: #### M G, TSH3, CBC, DIFF CBC, PT, PTT, CMP #### [facility] [address] Commemt2 [employer] [facility] Comment on above: Result Comment: PERF ORMED BY: [facility] [address] [place] [address] PATHOLOGIST ELECTRIC REFRIGERATOR PREPARER TRINA GARCIA M.D. Performed By: #### M G, TSH3, CBC, DIFF CBC, PT, PTT, CMP #### [address] Glucose [Mass/Vol] 410 mg/dL Off scale high [facility] Comment on above: Result Comment: [facility] Glucose Reference Range is dependent on time and content of last meal. Glucose of more than 200 mg/dL in a nonstressed, ambulatory subject supports the diagnosis of Diabetes Mellitus. Performed By: #### M G, TSH3, CBC, DIFF CBC, PT, PTT, CMP #### [address] Glucose [Mass/Vol] 358 mg/dL Normal [facility] Comment on above: Result Comment: [facility] Glucose Reference Range is dependent on time and content of last meal. Glucose of more than 200 mg/dL in a nonstressed, ambulatory subject supports the diagnosis of Diabetes Mellitus. PERFORMED BY: [facility] [address] [place] [address] PATHOLOGIST ELECTRIC REFRIGERATOR PREPARER TRINA GARCIA M.D. Performed By: #### M G, TSH3, CBC, DIFF CBC, PT, PTT, CMP #### [facility] [address] A1C with Estimated Average G karol 11-26-2022 Glucose [Mass/Vol] 183 mg/dL Normal [facility] Comment on above: Result Comment: PERF ORMED BY: [place] [address] PATHOLOGIST ELECTRIC REFRIGERATOR PREPARER TRINA GARCIA M.D. Performed By: #### H S TROP, A1C WTH eA, SCAN CBC #### [address] HbA1c (Bld) [Mass fraction] 8.0 % High 4.3-5.6 [facility] Comment on above: Result Comment: Incr eased risk for diabetes: 5.7 - 6.4 diabetes: >6.4 glycemic control for adults with diabetes: <7.0 Performed By: #### H S TROP, A1C WTH eA, SCAN CBC #### [address] Basic Metabolic Panelon 07-0 -2022 Anion gap [Moles/Vol] 12.0 mmol/L Normal 6.0-15.0 [facility] Comment on above: Performed By: #### M G, TSH3, CBC, DIFF CBC, PT, PTT, CMP #### [address] Calcium [Mass/Vol] 8.3 mg/dL Low 8.6-10.3 [facility] Comment on above: Performed By: #### M G, TSH3, CBC, DIFF CBC, PT, PTT, CMP #### [place] [address] [place] Chloride [Moles/Vol] 108 mmol/L High 98-107 [facility] Comment on above: Performed By: #### M G, TSH3, CBC, DIFF CBC, PT, PTT, CMP #### [place] [address] [place] CO2 [Moles/Vol] 27.1 mmol/L Normal 21.0-31.0 [facility] Comment on above: Performed By: #### M G, TSH3, CBC, DIFF CBC, PT, PTT, CMP #### [place] [address] [place] Creatinine [Mass/Vol] 0.99 mg/dL Normal 0.70-1.30 [facility] Comment on above: Performed By: #### M G, TSH3, CBC, DIFF CBC, PT, PTT, CMP #### [facility] [address] [place] [address] [place] Creatinine Clr Calc Pharmacy 47.90 [facility] Comment on above: Performed By: #### M G, TSH3, CBC, DIFF CBC, PT, PTT, CMP #### [facility] [address] [place] [address] [place] GFR/1.73 sq M.predicted MDRD (S/P/Bld) [Vol rate/Area] mL/min/{1.73_m2} [facility] Comment on above: Performed By: #### M G, TSH3, CBC, DIFF CBC, PT, PTT, CMP #### [facility] [address] [place] [address] [place] Glucose [Mass/Vol] 164 mg/dL Significant change up 70-100 [facility] Comment on above: Result Comment: [facility] Glucose Reference Range is dependent on time and content of last meal. Glucose of more than 200 mg/dL in a nonstressed, ambulatory subject supports the diagnosis of Diabetes Mellitus. ADA recommended reference range Performed By: #### M G, TSH3, CBC, DIFF CBC, PT, PTT, CMP #### [facility] [address] [place] [address] [place] Potassium [Moles/Vol] 5.1 mmol/L Normal 3.5-5.1 [facility] Comment on above: Performed By: #### M G, TSH3, CBC, DIFF CBC, PT, PTT, CMP #### [facility] [address] [place] [address] [place] Sodium [Moles/Vol] 142 mmol/L Normal 136-145 [facility] Comment on above: Performed By: #### M G, TSH3, CBC, DIFF CBC, PT, PTT, CMP #### [facility] [address] [place] [address] [place] Urea nitrogen [Mass/Vol] 37 mg/dL High 7-25 [facility] Comment on above: Performed By: #### M G, TSH3, CBC, DIFF CBC, PT, PTT, CMP #### [place] [id number] [facility] ECG 12 lead ECGon 11-26-2022 ECG 12 lead ECG [facility] [address] [place] [address] Electrocardiograph Report Signed Patient: Franki Hernandez MR#: [id number] : 1940 Acct:[id number] Age/Sex: 82 / M ADM Date: 11/25/22 Loc: 3T Room: [address] [place] [address] Type: ADM IN Attending Dr: Nelida Aquino [...] By David Cerda DO 11/26 1319 Normal [facility] ECG 12 lead ECG [facility] [address] [place] [address] Electrocardiograph Report Signed Patient: Franki Hernandez MR#: [id number] : 1940 Acct:[id number] Age/Sex: 82 / M ADM Date: 11/25/22 Loc: Room: [address] [place] [address] Type: ADM IN Attending Dr: Nelida Aquino MD Ordering Provider: Nelida Aquino MD Date of Service: 11/26/2211/13/499 ECG/ECG 12 lead ECG: [email or web address] change Copies to: Test Reason : Blood [...] By David Cerda DO 11/27 1255 [facility] echo transthoracicon [facility] echo transthoracic [facility] [place] [address] Echocardiogram Signed Patient: Franki Hernandez MR#: [id number] : 1940 Acct:[id number] Age/Sex: 82 / M ADM Date: 11/25/22 Loc: Room: [address] [place] [address] Type: ADM IN Attending Dr: Nelida Aquino MD Ordering Provider: Hermelinda Benitez APRN Date of Service: 11/26/2211/13/499 [facility] echo transthoracic: a-fib rvr, elevated troponin Copies to: Saige Bassett MD, [facility] Hermelinda Benitez, [employer] Weight: 125 lb Performed By: JEANNA Solo [...] 11/26/22 1004 Signed By: Saige Bassett MD, [facility] 11/26/22 1704 [facility] Glucose Poct Glucometerson 0 11-26-2022 Commemt1 [facility] Comment on above: Result Comment: Glu2 : WILL NOTIFY DR/RN PERFORMED BY: [place] [address] PATHOLOGIST ELECTRIC REFRIGERATOR PREPARER TRINA GARCIA M.D. Performed By: #### M G, TSH3, CBC, DIFF CBC, PT, PTT, CMP #### [address] Glucose [Mass/Vol] 477 mg/dL Off scale high [facility] Comment on above: Result Comment: [place] [facility] Glucose Reference Range is dependent on time and content of last meal. Glucose of more than 200 mg/dL in a nonstressed, ambulatory subject supports the diagnosis of Diabetes Mellitus. Performed By: #### M G, TSH3, CBC, DIFF CBC, PT, PTT, CMP #### [facility] [address] Glucose [Mass/Vol] 355 mg/dL Normal [facility] Comment on above: Result Comment: [place] [facility] Glucose Reference Range is dependent on time and content of last meal. Glucose of more than 200 mg/dL in a nonstressed, ambulatory subject supports the diagnosis of Diabetes Mellitus. PERFORMED BY: [place] [address] PATHOLOGIST ELECTRIC REFRIGERATOR PREPARER TRINA GARCIA M.D. Performed By: #### M G, TSH3, CBC, DIFF CBC, PT, PTT, CMP #### [address] Glucose [Mass/Vol] 178 mg/dL Normal [facility] Comment on above: Result Comment: [place] [facility] Glucose Reference Range is dependent on time and content of last meal. Glucose of more than 200 mg/dL in a nonstressed, ambulatory subject supports the diagnosis of Diabetes Mellitus. PERFORMED BY: [place] [address] PATHOLOGIST ELECTRIC REFRIGERATOR PREPARER TRINA GARCIA M.D. Performed By: #### M G, TSH3, CBC, DIFF CBC, PT, PTT, CMP #### [address] Glucose [Mass/Vol] 205 mg/dL Normal [facility] Comment on above: Result Comment: [place] [facility] Glucose Reference Range is dependent on time and content of last meal. Glucose of more than 200 mg/dL in a nonstressed, ambulatory subject supports the diagnosis of Diabetes Mellitus. PERFORMED BY: [place] [address] PATHOLOGIST ELECTRIC REFRIGERATOR PREPARER TRINA GARCIA M.D. Performed By: #### M G, TSH3, CBC, DIFF CBC, PT, PTT, CMP #### [address] Magnesiumon 11-26-2022 Magnesium [Mass/Vol] 2.3 mg/dL Normal 1.9-2.7 [facility] Comment on above: Performed By: #### M G, TSH3, CBC, DIFF CBC, PT, PTT, CMP #### [address] Prealbuminon 11-26-2022 Prealbumin [Mass/Vol] 22.6 mg/dL Normal 17.0-34.0 [facility] Comment on above: Result Comment: PERF ORMED BY: [place] [address] PATHOLOGIST ELECTRIC REFRIGERATOR PREPARER TRINA GARCIA M.D. Performed By: #### M G, TSH3, CBC, DIFF CBC, PT, PTT, CMP #### [address] Scan and CBCon 11-26-2022 Anisocytosis Ql (Bld) Slight Normal [facility] Comment on above: Performed By: #### H S TROP, A1C WTH eA, SCAN CBC #### [address] Basophils (Bld) [#/Vol] 0.0 10*3/uL Normal 0.0-0.2 [facility] Comment on above: Performed By: #### H S TROP, A1C WTH eA, SCAN CBC #### [place] [address] [place] Basophils/100 WBC (Bld) 0.1 % Normal . [facility] Comment on above: Performed By: #### H S TROP, A1C WTH eA, SCAN CBC #### [address] Eosinophils (Bld) [#/Vol] 0.0 10*3/uL Normal 0.0-0.45 [facility] Comment on above: Performed By: #### H S TROP, A1C WTH eA, SCAN CBC #### [place] [address] [place] Eosinophils/100 WBC (Bld) 0.0 % Normal . [facility] Comment on above: Performed By: #### H S TROP, A1C WTH eA, SCAN CBC #### [address] Erythrocyte distribution width (RBC) [Ratio] 13.5 % Normal 12.0-14.8 [facility] Comment on above: Performed By: #### H S TROP, A1C WTH eA, SCAN CBC #### [address] Hematocrit (Bld) [Volume fraction] 34.3 % Low 38.8-50.0 [facility] Comment on above: Performed By: #### H S TROP, A1C WTH eA, SCAN CBC #### [address] Hemoglobin (Bld) [Mass/Vol] 11.3 g/dL Low 13.0-17.0 [facility] Comment on above: Performed By: #### H S TROP, A1C WTH eA, SCAN CBC #### [address] Lymphocytes (Bld) [#/Vol] 0.5 10*3/uL Low 1.00-4.8 [facility] Comment on above: Performed By: #### H S TROP, A1C WTH eA, SCAN CBC #### [place] [address] [place] Lymphocytes/100 WBC (Bld) 3.8 % Normal . [facility] Comment on above: Performed By: #### H S TROP, A1C WTH eA, SCAN CBC #### [place] [address] [place] MCH (RBC) [Entitic mass] 31.0 pg Normal 27.5-35.2 [facility] Comment on above: Performed By: #### H S TROP, A1C WTH eA, SCAN CBC #### [address] [place] [address] [place] MCV (RBC) [Entitic vol] 94.0 fL Normal 83.5-101 [facility] Comment on above: Performed By: #### H S TROP, A1C WTH eA, SCAN CBC #### [facility] [address] Mean Corpuscular HGB Conc 33.0 g/dL Normal 32.5-35.6 [facility] Comment on above: Performed By: #### H S TROP, A1C WTH eA, SCAN CBC #### [place] [address] [place] Microcytosis Slight Normal [facility] Comment on above: Performed By: #### H S TROP, A1C WTH eA, SCAN CBC #### [address] Monocytes (Bld) [#/Vol] 0.1 10*3/uL Normal 0.0-0.8 [facility] Comment on above: Performed By: #### H S TROP, A1C WTH eA, SCAN CBC #### [place] [address] [place] Monocytes/100 WBC (Bld) 0.7 % Normal . [facility] Comment on above: Performed By: #### H S TROP, A1C WTH eA, SCAN CBC #### [place] [address] [place] Neutrophils (Bld) [#/Vol] 12.1 10*3/uL High 1.8-7.7 [facility] Comment on above: Performed By: #### H S TROP, A1C WTH eA, SCAN CBC #### [place] [address] [place] Neutrophils/100 WBC (Bld) 95.4 % Normal . [facility] Comment on above: Performed By: #### H S TROP, A1C WTH eA, SCAN CBC #### [facility] [address] [place] [address] [place] NRBC% 0.0 /100{WBC} Normal 0-0.5 [facility] Comment on above: Performed By: #### H S TROP, A1C WTH eA, SCAN CBC #### [facility] [address] [place] [address] [place] Ovalocytes Slight Normal [facility] Comment on above: Performed By: #### H S TROP, A1C WTH eA, SCAN CBC #### [address] Platelet Estimate Normal Normal Normal [facility] Comment on above: Performed By: #### H S TROP, A1C WTH eA, SCAN CBC #### [address] Platelet mean volume (Bld) [Entitic vol] 8.2 fL Normal 6.6-10.1 [facility] Comment on above: Performed By: #### H S TROP, A1C WTH eA, SCAN CBC #### [address] Platelet Morphology Normal Normal Normal [facility] Comment on above: Result Comment: PERF ORMED BY: [place] [address] PATHOLOGIST ELECTRIC REFRIGERATOR PREPARER TRINA GARCIA M.D. Performed By: #### H S TROP, A1C WTH eA, SCAN CBC #### [address] Platelets (Bld) [#/Vol] 229 10*3/uL Normal 150-450 [facility] Comment on above: Performed By: #### H S TROP, A1C WTH eA, SCAN CBC #### [facility] [address] [place] [address] [place] RBC (Bld) [#/Vol] 3.65 10*6/uL Low 3.90-5.60 [facility] Comment on above: Performed By: #### H S TROP, A1C WTH eA, SCAN CBC #### [facility] [address] [place] [address] [place] WBC (Bld) [#/Vol] 12.6 10*3/uL High 4.1-10.5 [facility] Comment on above: Performed By: #### H S TROP, A1C WT eA, SCAN CBC #### [facility] [address] [place] [address] [place] Troponin I High Sensitivityo n 11-26-2022 Troponin I High Sensitivity 19.7 pg/mL Normal 0.0-20.0 [facility] Comment on above: Result Comment: PERF ORMED BY: [place] [address] PATHOLOGIST ELECTRIC REFRIGERATOR PREPARER TRINA GARCIA M.D. Performed By: #### H S TROP, A1C WTH eA, SCAN CBC #### [facility] [address] Troponin I High Sensitivity 24.1 pg/mL High 0.0-20.0 [facility] Comment on above: Result Comment: PERF ORMED BY: [place] [address] PATHOLOGIST ELECTRIC REFRIGERATOR PREPARER TRINA GARCIA M.D. Performed By: #### M G, TSH3, CBC, DIFF CBC, PT, PTT, CMP #### [address] Urine Cultureon 11-26-2022 Bacteria identified Cx Nom (U) No Growth 2 Days PERFORMED BY: [place] [address] PATHOLOGIST ELECTRIC REFRIGERATOR PREPARER TRINA GARCIA M.D. [facility] Comment on above: Performed By: #### M G, TSH3, CBC, DIFF CBC, PT, PTT, CMP #### [place] [id number] [facility] Activated partial thrombopla stin time (aPTT) in platelet poor plasma by coagulation aOrdered By: Shukri Francisco on 11-25-2022 aPTT Coag (PPP) [Time] 23.3 s 25.1-36.5 [facility] Alanine aminotransferase [En zymatic activity/volume] in Serum or PlasmaOrdered By: Shukri Francisco on 11-25-2022 ALT [Catalytic activity/Vol] 9 U/L 7-52 [facility] Albumin [Mass/volume] in Ser um or Plasma by Bromocresol green (BCG) dye binding methoOrdered By: Shukri Francisco on 11-25-2022 Albumin BCG dye [Mass/Vol] 3.2 g/dL 3.5-5.7 [facility] Alkaline phosphatase [Enzyma tic activity/volume] in Serum or PlasmaOrdered By: Shukri Francisco on 11-25-2022 ALP [Catalytic activity/Vol] 114 U/L 34-104 [facility] Aspartate aminotransferase [ Enzymatic activity/volume] in Serum or PlasmaOrdered By: Shukri Francisco on 11-25-2022 AST [Catalytic activity/Vol] 11 U/L 13-39 [facility] Automated erythrocytes count in urine sediment (number/area)Ordered By: Shukri Francisco on 11-25-2022 RBC Auto (Urine sed) [#/Area] 0-1 [HPF] 0-4 [facility] Automated leukocytes count i n urine sediment (number/area)Ordered By: Shukri Francisco on 11-25-2022 WBC Auto (Urine sed) [#/Area] 0-1 [HPF] 0-4 [facility] B-Type Natriuretic Peptideon 11-25-2022 Natriuretic peptide B (Bld) [Mass/Vol] 194.0 pg/mL High 5-100 [facility] Comment on above: Result Comment: PERF ORMED BY: [place] [address] PATHOLOGIST ELECTRIC REFRIGERATOR PREPARER TRINA GARCIA M.D. Performed By: #### M G, TSH3, CBC, DIFF CBC, PT, PTT, CMP #### [address] Band form neutrophils/100 WB C Manual cnt (Bld)Ordered By: Shukri Francisco on 11-25-2022 Band form neutrophils/100 WBC (Bld) 2 % 0-5 [facility] Basophils Auto (Bld) [#/Vol] Ordered By: Shukri Francisco on 11-25-2022 Basophils (Bld) [#/Vol] N/A [facility] Basophils/100 WBC Auto (Bld) Ordered By: Shukri Francisco on 11-25-2022 Basophils/100 WBC (Bld) N/A [facility] Basophils/100 WBC Manual cnt (Bld)Ordered By: Shukri Francisco on 11-25-2022 Basophils/100 WBC (Bld) 0 % 0-2 [facility] Bilirubin Test strip Ql (U)O rdered By: Shukri Francisco on 11-25-2022 Bilirubin Ql (U) Negative Negative [facility] Bilirubin.total [Mass/volume ] in Serum or PlasmaOrdered By: Shukri Francisco on 11-25-2022 Bilirubin [Mass/Vol] 0.5 mg/dL 0.3-1.0 [facility] Blood Cultureon 11-25-2022 Bacteria identified Cx Nom (Bld) NO GROWTH 5 DAYS PERFORMED BY: [place] [address] PATHOLOGIST ELECTRIC REFRIGERATOR PREPARER TRINA GARCIA M.D. [facility] Comment on above: Performed By: #### M G, TSH3, CBC, DIFF CBC, PT, PTT, CMP #### [facility] [address] [place] [address] Bacteria identified Cx Nom (Bld) NO GROWTH 5 DAYS PERFORMED BY: [place] [address] PATHOLOGIST ELECTRIC REFRIGERATOR PREPARER TRINA GARCIA M.D. [facility] Comment on above: Performed By: #### M G, TSH3, CBC, DIFF CBC, PT, PTT, CMP #### [facility] [address] [place] [address] Calcium [Mass/volume] in Ser um or PlasmaOrdered By: Shukri Francisco on 11-25-2022 Calcium [Mass/Vol] 9.1 mg/dL 8.6-10.3 [facility] Carbon dioxide, total [Moles /volume] in Serum or PlasmaOrdered By: Shukri Francisco on 11-25-2022 CO2 [Moles/Vol] 27.0 mmol/L 21.0-31.0 [facility] Chloride [Moles/volume] in S lio or PlasmaOrdered By: Shukri Francisco on 11-25-2022 Chloride [Moles/Vol] 108 mmol/L 98-107 [facility] Color Auto (U)Ordered By: Allie Francisco on 11-25-2022 Color (U) Yellow Yellow [facility] Complete Blood Count Auto Di ffon 11-25-2022 Erythrocyte distribution width (RBC) [Ratio] 13.6 % Normal 12.0-14.8 [facility] Comment on above: Performed By: #### M G, TSH3, CBC, DIFF CBC, PT, PTT, CMP #### [address] Hematocrit (Bld) [Volume fraction] 39.9 % Normal 38.8-50.0 [facility] Comment on above: Performed By: #### M G, TSH3, CBC, DIFF CBC, PT, PTT, CMP #### [address] Hemoglobin (Bld) [Mass/Vol] 13.1 g/dL Normal 13.0-17.0 [facility] Comment on above: Performed By: #### M G, TSH3, CBC, DIFF CBC, PT, PTT, CMP #### [address] MCH (RBC) [Entitic mass] 31.0 pg Normal 27.5-35.2 [facility] Comment on above: Performed By: #### M G, TSH3, CBC, DIFF CBC, PT, PTT, CMP #### [address] MCV (RBC) [Entitic vol] 94.1 fL Normal 83.5-101 [facility] Comment on above: Performed By: #### M G, TSH3, CBC, DIFF CBC, PT, PTT, CMP #### [address] Mean Corpuscular HGB Conc 32.9 g/dL Normal 32.5-35.6 [facility] Comment on above: Performed By: #### M G, TSH3, CBC, DIFF CBC, PT, PTT, CMP #### [address] Platelet mean volume (Bld) [Entitic vol] 8.1 fL Normal 6.6-10.1 [facility] Comment on above: Result Comment: PERF ORMED BY: [place] [address] PATHOLOGIST ELECTRIC REFRIGERATOR PREPARER TRINA GARCIA M.D. Performed By: #### M G, TSH3, CBC, DIFF CBC, PT, PTT, CMP #### [address] Platelets (Bld) [#/Vol] 278 10*3/uL Normal 150-450 [facility] Comment on above: Performed By: #### M G, TSH3, CBC, DIFF CBC, PT, PTT, CMP #### [address] RBC (Bld) [#/Vol] 4.24 10*6/uL Normal 3.90-5.60 [facility] Comment on above: Performed By: #### M G, TSH3, CBC, DIFF CBC, PT, PTT, CMP #### [address] WBC (Bld) [#/Vol] 21.8 10*3/uL High 4.1-10.5 [facility] Comment on above: Performed By: #### M G, TSH3, CBC, DIFF CBC, PT, PTT, CMP #### [address] Comprehensive Metabolic Pane uma 11-25-2022 Albumin [Mass/Vol] 3.2 g/dL Low 3.5-5.7 [facility] Comment on above: Performed By: #### M G, TSH3, CBC, DIFF CBC, PT, PTT, CMP #### [address] Albumin/Globulin [Mass ratio] 1.1 {ratio} Normal [facility] Comment on above: Performed By: #### M G, TSH3, CBC, DIFF CBC, PT, PTT, CMP #### [address] ALP [Catalytic activity/Vol] 114 U/L High 34-104 [facility] Comment on above: Performed By: #### M G, TSH3, CBC, DIFF CBC, PT, PTT, CMP #### [facility] [address] ALT [Catalytic activity/Vol] 9 U/L Normal 7-52 [facility] Comment on above: Performed By: #### M G, TSH3, CBC, DIFF CBC, PT, PTT, CMP #### [facility] [address] Anion gap [Moles/Vol] 11.0 mmol/L Normal 6.0-15.0 [facility] Comment on above: Performed By: #### M G, TSH3, CBC, DIFF CBC, PT, PTT, CMP #### [address] AST [Catalytic activity/Vol] 11 U/L Low 13-39 [facility] Comment on above: Performed By: #### M G, TSH3, CBC, DIFF CBC, PT, PTT, CMP #### [facility] [address] Bilirubin [Mass/Vol] 0.5 mg/dL Normal 0.3-1.0 [facility] Comment on above: Performed By: #### M G, TSH3, CBC, DIFF CBC, PT, PTT, CMP #### [facility] [address] Calcium [Mass/Vol] 9.1 mg/dL Normal 8.6-10.3 [facility] Comment on above: Performed By: #### M G, TSH3, CBC, DIFF CBC, PT, PTT, CMP #### [facility] [address] Chloride [Moles/Vol] 108 mmol/L High 98-107 [facility] Comment on above: Performed By: #### M G, TSH3, CBC, DIFF CBC, PT, PTT, CMP #### [facility] [address] CO2 [Moles/Vol] 27.0 mmol/L Normal 21.0-31.0 [facility] Comment on above: Performed By: #### M G, TSH3, CBC, DIFF CBC, PT, PTT, CMP #### [facility] [address] Creatinine [Mass/Vol] 1.14 mg/dL Normal 0.70-1.30 [facility] Comment on above: Performed By: #### M G, TSH3, CBC, DIFF CBC, PT, PTT, CMP #### [facility] [address] Creatinine Clr Calc Pharmacy 41.45 [facility] Comment on above: Performed By: #### M G, TSH3, CBC, DIFF CBC, PT, PTT, CMP #### [facility] [address] GFR/1.73 sq M.predicted MDRD (S/P/Bld) [Vol rate/Area] mL/min/{1.73_m2} [facility] Comment on above: Performed By: #### M G, TSH3, CBC, DIFF CBC, PT, PTT, CMP #### [facility] [address] Globulin (S) [Mass/Vol] 3.0 g/dL [facility] Comment on above: Performed By: #### M G, TSH3, CBC, DIFF CBC, PT, PTT, CMP #### [address] Glucose [Mass/Vol] 54 mg/dL Low 70-100 [facility] Comment on above: Result Comment: [facility] Glucose Reference Range is dependent on time and content of last meal. Glucose of more than 200 mg/dL in a nonstressed, ambulatory subject supports the diagnosis of Diabetes Mellitus. ADA recommended reference range Performed By: #### M G, TSH3, CBC, DIFF CBC, PT, PTT, CMP #### [facility] [address] Potassium [Moles/Vol] 4.0 mmol/L Normal 3.5-5.1 [facility] Comment on above: Performed By: #### M G, TSH3, CBC, DIFF CBC, PT, PTT, CMP #### [facility] [address] [place] [address] Protein [Mass/Vol] 6.2 g/dL Low 6.4-8.9 [facility] Comment on above: Performed By: #### M G, TSH3, CBC, DIFF CBC, PT, PTT, CMP #### [facility] [address] [place] [address] Sodium [Moles/Vol] 142 mmol/L Normal 136-145 [facility] Comment on above: Performed By: #### M G, TSH3, CBC, DIFF CBC, PT, PTT, CMP #### [address] Urea nitrogen [Mass/Vol] 35 mg/dL High 7-25 [facility] Comment on above: Performed By: #### M G, TSH3, CBC, DIFF CBC, PT, PTT, CMP #### [address] Creatinine [Mass/volume] in Serum or PlasmaOrdered By: Shukri Francisco on 11-25-2022 Creatinine [Mass/Vol] 1.14 mg/dL 0.70-1.30 [facility] Diff and CBCon 11-25-2022 Band form neutrophils/100 WBC (Bld) 2 % Normal 0-5 [facility] Comment on above: Performed By: #### M G, TSH3, CBC, DIFF CBC, PT, PTT, CMP #### [facility] [address] [place] [address] [place] Basophils/100 WBC (Bld) 0 % Normal 0-2 [facility] Comment on above: Performed By: #### M G, TSH3, CBC, DIFF CBC, PT, PTT, CMP #### [place] [address] [place] Eosinophils/100 WBC (Bld) 0 % Low 1-3 [facility] Comment on above: Performed By: #### M G, TSH3, CBC, DIFF CBC, PT, PTT, CMP #### [address] [place] [address] [place] Lymphocytes/100 WBC (Bld) 6 % Low 18-42 [facility] Comment on above: Performed By: #### M G, TSH3, CBC, DIFF CBC, PT, PTT, CMP #### [facility] [address] [place] [id number] [place] Metamyelocytes 1 % High 0-0 [facility] Comment on above: Performed By: #### M G, TSH3, CBC, DIFF CBC, PT, PTT, CMP #### [place] [address] [place] Monocytes/100 WBC (Bld) 19.98 % Normal 0.00-20.00 [facility] Comment on above: Result Comment: For adults in ED, MDW > 20.0 may be associated with a higher risk of sepsis during the first 12 hrs of hospital admission The predictive value of MDW for identifying sepsis in patients with hematological abnormalities has not been established Performed By: #### M G, TSH3, CBC, DIFF CBC, PT, PTT, CMP #### [place] [address] [place] Monocytes/100 WBC (Bld) 2 % Normal 2-11 [facility] Comment on above: Performed By: #### M G, TSH3, CBC, DIFF CBC, PT, PTT, CMP #### [place] [address] [place] Myelocytes 4 % High 0-0 [facility] Comment on above: Performed By: #### M G, TSH3, CBC, DIFF CBC, PT, PTT, CMP #### [place] [id number] [place] Platelet Estimate Normal Normal Normal [facility] Comment on above: Performed By: #### M G, TSH3, CBC, DIFF CBC, PT, PTT, CMP #### [place] [id number] [place] Platelet Morphology Normal Normal Normal [facility] Comment on above: Result Comment: PERF ORMED BY: [place] [address] PATHOLOGIST ELECTRIC REFRIGERATOR PREPARER TRINA GARCIA M.D. Performed By: #### M G, TSH3, CBC, DIFF CBC, PT, PTT, CMP #### [facility] [address] [place] [address] [place] RBC morphology finding Nom (Bld) Normal Normal Normal [facility] Comment on above: Performed By: #### M G, TSH3, CBC, DIFF CBC, PT, PTT, CMP #### [facility] [address] [place] [address] [place] Segmented neutrophils/100 WBC (Bld) 85 % High 50-70 [facility] Comment on above: Performed By: #### M G, TSH3, CBC, DIFF CBC, PT, PTT, CMP #### [facility] [address] [place] [address] [place] Dipstick and Microscopicon 0 11-25-2022 Appearance (U) Clear Normal Clear [facility] Comment on above: Order Comment: Name Collection Type:: Berry Catheter Performed By: #### M G, TSH3, CBC, DIFF CBC, PT, PTT, CMP #### [facility] [address] [place] [address] [place] Bacteria,Urine None Seen Normal None Seen [facility] Comment on above: Order Comment: Name Collection Type:: Berry Catheter Performed By: #### M G, TSH3, CBC, DIFF CBC, PT, PTT, CMP #### [facility] [address] [place] [id number] [place] Bilirubin,Urine Negative Normal Negative [facility] Comment on above: Order Comment: Name Collection Type:: Berry Catheter Performed By: #### M G, TSH3, CBC, DIFF CBC, PT, PTT, CMP #### [facility] [address] [place] [id number] [place] Color (U) Yellow Normal Yellow [facility] Comment on above: Order Comment: Name Collection Type:: Berry Catheter Performed By: #### M G, TSH3, CBC, DIFF CBC, PT, PTT, CMP #### [facility] [address] [place] [address] [place] Glucose Ql (U) Normal Normal Normal [facility] Comment on above: Order Comment: Name Collection Type:: Berry Catheter Performed By: #### M G, TSH3, CBC, DIFF CBC, PT, PTT, CMP #### [address] Hyaline Casts,Urine 0-8 Normal 0-8 [facility] Comment on above: Order Comment: Name Collection Type:: Berry Catheter Result Comment: PERF ORMED BY: [place] [address] PATHOLOGIST ELECTRIC REFRIGERATOR PREPARER TRINA GARCIA M.D. Performed By: #### M G, TSH3, CBC, DIFF CBC, PT, PTT, CMP #### [address] Ketones Ql (U) Trace High Negative [facility] Comment on above: Order Comment: Name Collection Type:: Berry Catheter Performed By: #### M G, TSH3, CBC, DIFF CBC, PT, PTT, CMP #### [address] Leukocyte esterase Test strip Ql (U) Negative Normal Negative [facility] Comment on above: Order Comment: Name Collection Type:: Berry Catheter Performed By: #### M G, TSH3, CBC, DIFF CBC, PT, PTT, CMP #### [address] Nitrite,Urine Negative Normal Negative [facility] Comment on above: Order Comment: Name Collection Type:: Berry Catheter Performed By: #### M G, TSH3, CBC, DIFF CBC, PT, PTT, CMP #### [address] Occult Blood,Urine Negative Normal Negative [facility] Comment on above: Order Comment: Name Collection Type:: Berry Catheter Result Comment: PERF ORMED BY: [place] [address] PATHOLOGIST ELECTRIC REFRIGERATOR PREPARER TRINA GARCIA M.D. Performed By: #### M G, TSH3, CBC, DIFF CBC, PT, PTT, CMP #### [facility] [address] pH (U) 6.0 [pH] Normal 5.0-9.0 [facility] Comment on above: Order Comment: Name Collection Type:: Berry Catheter Performed By: #### M G, TSH3, CBC, DIFF CBC, PT, PTT, CMP #### [address] Protein (U) [Mass/Vol] 300 mg/dL High Negative [facility] Comment on above: Order Comment: Name Collection Type:: Berry Catheter Performed By: #### M G, TSH3, CBC, DIFF CBC, PT, PTT, CMP #### [address] RBC LM.HPF (Urine sed) [#/Area] 0 /[HPF] Normal 0-4 [facility] Comment on above: Order Comment: Name Collection Type:: Berry Catheter Performed By: #### M G, TSH3, CBC, DIFF CBC, PT, PTT, CMP #### [address] Specificy [place],Urine 1.024 Normal 1.001-1.030 [facility] Comment on above: Order Comment: Name Collection Type:: Berry Catheter Performed By: #### M G, TSH3, CBC, DIFF CBC, PT, PTT, CMP #### [address] Squamous Epithelial Cell,Urine 0-1 Normal 0-2 [facility] Comment on above: Order Comment: Name Collection Type:: Berry Catheter Performed By: #### M G, TSH3, CBC, DIFF CBC, PT, PTT, CMP #### [address] Urobilinogen,Urine Normal Normal Normal [facility] Comment on above: Order Comment: Name Collection Type:: Berry Catheter Performed By: #### M G, TSH3, CBC, DIFF CBC, PT, PTT, CMP #### [address] WBC LM.HPF (Urine sed) [#/Area] 0 /[HPF] Normal 0-4 [facility] Comment on above: Order Comment: Name Collection Type:: Berry Catheter Performed By: #### M G, TSH3, CBC, DIFF CBC, PT, PTT, CMP #### [facility] [address] [place] [id number] [facility] ECG 12 lead ECGon 11-25-2022 ECG 12 lead ECG [facility] [address] [place] [address] Electrocardiograph Report Signed Patient: Franki Hernandez MR#: [id number] : 1940 Acct:[id number] Age/Sex: 82 / M ADM Date: 11/25/22 Loc: ER Room: Type: [facility] ER Attending Dr: Ordering Provider: Shukri Francisco [...] Signed By Shukri Francisco MD 10/13 Normal [facility] Eosinophils Auto (Bld) [#/Vo l]Ordered By: Shukri Francisco on 11-25-2022 Eosinophils (Bld) [#/Vol] N/A [facility] Eosinophils/100 WBC Auto (Bl d)Ordered By: Shukri Francisco on 11-25-2022 Eosinophils/100 WBC (Bld) N/A [facility] Eosinophils/100 WBC Manual c nt (Bld)Ordered By: Shukri Francisco on 11-25-2022 Eosinophils/100 WBC (Bld) 0 % 1-3 [facility] Erythrocyte distribution wid th Auto (RBC) [Ratio]Ordered By: Shukri Francisco on 11-25-2022 Erythrocyte distribution width (RBC) [Ratio] 13.6 % 12.0-14.8 [facility] Free T4 (Free Thyroxine)on 0 11-25-2022 Free T4 [Mass/Vol] 1.31 ng/dL High 0.61-1.12 [facility] Comment on above: Result Comment: PERF ORMED BY: [facility] [address] [place] [address] PATHOLOGIST ELECTRIC REFRIGERATOR PREPARER TRINA GARCIA M.D. Performed By: #### M G, TSH3, CBC, DIFF CBC, PT, PTT, CMP #### [facility] [address] [place] [address] [facility] Globulin Calc (S) [Mass/Vol] Ordered By: Shukri Francisco on 11-25-2022 Globulin (S) [Mass/Vol] 3.0 g/dL [facility] Glucose Glucometer (BldC) [M ass/Vol]Ordered By: Jean-Pierre Otero on 11-25-2022 Glucose [Mass/Vol] 196 mg/dL [facility] Comment on above: Random Glucose Refer ence Range is dependent on time and content of last meal. Glucose of more than 200 mg/dL in a nonstressed, ambulatory subject supports the diagnosis of Diabetes Mellitus. Glucose Poct Glucometerson 0 11-25-2022 Glucose [Mass/Vol] 196 mg/dL Normal [facility] Comment on above: Result Comment: [place] Glucose Reference Range is dependent on time and content of last meal. Glucose of more than 200 mg/dL in a nonstressed, ambulatory subject supports the diagnosis of Diabetes Mellitus. PERFORMED BY: [facility] [address] [place] [address] PATHOLOGIST ELECTRIC REFRIGERATOR PREPARER TRINA GARCIA M.D. Performed By: #### M G, TSH3, CBC, DIFF CBC, PT, PTT, CMP #### [facility] [address] [place] [address] [place] Commemt1 Normal [facility] Comment on above: Result Comment: Glu2 : WILL NOTIFY DR/RN Performed By: #### M G, TSH3, CBC, DIFF CBC, PT, PTT, CMP #### [facility] [address] Commemt2 FOLLOW HYPOGLYCEMIC Normal [facility] Comment on above: Result Comment: PERF ORMED BY: [place] [address] PATHOLOGIST ELECTRIC REFRIGERATOR PREPARER TRINA GARCIA M.D. Performed By: #### M G, TSH3, CBC, DIFF CBC, PT, PTT, CMP #### [facility] [address] Glucose [Mass/Vol] 47 mg/dL Off scale low [facility] Comment on above: Result Comment: [place] om Glucose Reference Range is dependent on time and content of last meal. Glucose of more than 200 mg/dL in a nonstressed, ambulatory subject supports the diagnosis of Diabetes Mellitus. Performed By: #### M G, TSH3, CBC, DIFF CBC, PT, PTT, CMP #### [facility] [address] [place] [address] [place] Glucose [Mass/volume] in Ser um or PlasmaOrdered By: Shukri Francisco on 11-25-2022 Glucose [Mass/Vol] 54 mg/dL 70-100 [facility] Comment on above: ADA recommended refe rence rangeRandom Glucose Reference Range is dependent on time and content of last meal. Glucose of more than 200 mg/dL in a nonstressed, ambulatory subject supports the diagnosis of Diabetes Mellitus. Hematocrit Auto (Bld) [Volum e fraction]Ordered By: Shukri Francisco on 11-25-2022 Hematocrit (Bld) [Volume fraction] 39.9 % 38.8-50.0 [facility] Hemoglobin [Mass/volume] in BloodOrdered By: Shukri Francisco on 11-25-2022 Hemoglobin (Bld) [Mass/Vol] 13.1 g/dL 13.0-17.0 [facility] Ketones Auto test strip (U) [Mass/Vol]Ordered By: Shukri Francisco on 11-25-2022 Ketones (U) [Mass/Vol] Trace Negative [facility] - CoagulationOrde red By: Shukri Francisco on 11-25-2022 PT Coag (PPP) [Time] 10.6 s 9.0-12.9 [facility] - UrinalysisOrder ed By: Shukri Francisco on 11-25-2022 Hyaline casts LM Ql (Urine sed) 0-8 [LPF] 0-8 [facility] Leukocytes [#/volume] correc oz for nucleated erythrocytes in Blood by Automated counOrdered By: Shukri Francisco on 11-25-2022 WBC corrected for nucl RBC Auto (Bld) [#/Vol] 21.8 10*3/uL 4.1-10.5 [facility] Lymphocytes Auto (Bld) [#/Vo l]Ordered By: Shukri Francisco on 11-25-2022 Lymphocytes (Bld) [#/Vol] N/A [facility] Lymphocytes/100 WBC Auto (Bl d)Ordered By: Shukri Francisco on 11-25-2022 Lymphocytes/100 WBC (Bld) N/A [facility] Lymphocytes/100 WBC Manual c nt (Bld)Ordered By: Shukri Francisco on 11-25-2022 Lymphocytes/100 WBC (Bld) 6 % 18-42 [facility] MCH Auto (RBC) [Entitic mass ]Ordered By: Shukri Francisco on 11-25-2022 MCH (RBC) [Entitic mass] 31.0 pg 27.5-35.2 [facility] MCHC Auto (RBC) [Mass/Vol]Or dered By: Shukri Francisco on 11-25-2022 MCHC (RBC) [Mass/Vol] 32.9 g/dL 32.5-35.6 [facility] MCV Auto (RBC) [Entitic vol] Ordered By: Shukri Francisco on 11-25-2022 MCV (RBC) [Entitic vol] 94.1 fL 83.5-101 [facility] Magnesiumon 11-25-2022 Magnesium [Mass/Vol] 1.7 mg/dL Low 1.9-2.7 [facility] Comment on above: Performed By: #### M G, TSH3, CBC, DIFF CBC, PT, PTT, CMP #### [facility] [address] [place] [address] Magnesium [Mass/volume] in S lio or PlasmaOrdered By: Shukri Francisco on 11-25-2022 Magnesium [Mass/Vol] 1.7 mg/dL 1.9-2.7 [facility] Metamyelocytes/100 WBC Manua l cnt (Bld)Ordered By: Shukri Francisco on 11-25-2022 Metamyelocytes/100 WBC (Bld) 1 % 0-0 [facility] Monocyte distribution width [Entitic volume] in Blood by AutomatedOrdered By: Shukri Francisco on 11-25-2022 Monocyte distribution width Auto (Bld) [Entitic vol] 19.98 % 0.00-20.00 [facility] Comment on above: For adults in ED, MD W > 20.0 may be associated with a higher risk of sepsis during the first 12 hrs of hospital admissionThe predictive value of MDW for identifying sepsis in patients with hematological abnormalities has not been established Monocytes Auto (Bld) [#/Vol] Ordered By: Shukri Francisco on 11-25-2022 Monocytes (Bld) [#/Vol] N/A [facility] Monocytes/100 WBC Auto (Bld) Ordered By: Shukri Francisco on 11-25-2022 Monocytes/100 WBC (Bld) N/A [facility] Monocytes/100 WBC Manual cnt (Bld)Ordered By: Shukri Francisco on 11-25-2022 Monocytes/100 WBC (Bld) 2 % 2-11 [facility] Myelocytes/100 WBC Manual cn t (Bld)Ordered By: Shukri Francisco on 11-25-2022 Myelocytes/100 WBC (Bld) 4 % 0-0 [facility] Natriuretic peptide B [Mass/ Vol]Ordered By: Shukri Francisco on 11-25-2022 Natriuretic peptide B (Bld) [Mass/Vol] 194.0 pg/mL 5-100 [facility] Neutrophils Auto (Bld) [#/Vo l]Ordered By: Shukri Francisco on 11-25-2022 Neutrophils (Bld) [#/Vol] N/A [facility] Neutrophils/100 WBC Auto (Bl d)Ordered By: Shukri Francisco on 11-25-2022 Neutrophils/100 WBC (Bld) N/A [facility] Nitrite Test strip Ql (U)Ord ered By: Shukri Francisco on 11-25-2022 Nitrite Ql (U) Negative Negative [facility] No Panel InformationOrdered By: Jean-Pierre Otero on 11-25-2022 Bedside Glucose #2 Comment Follow hypoglycemic [facility] Bedside Glucose Comment See comment [facility] Comment on above: Glu2: WILL NOTIFY DR /RN No Panel InformationOrdered By: Shukri Francisco on 11-25-2022 Estimated GFR (CKD-EPI) > 60.0 mL/Min [facility] Creatinine Clearance (Chem 41.45 [facility] Nucleated erythrocytes [Pres ence] in Blood by Automated countOrdered By: Shukri Francisco on 11-25-2022 Nucleated RBC Auto Ql (Bld) N/A [facility] Partial Thromboplastin Timeo n 11-25-2022 aPTT Coag (Bld) [Time] 23.3 s Low 25.1-36.5 [facility] Comment on above: Result Comment: PERF ORMED BY: [place] [address] PATHOLOGIST ELECTRIC REFRIGERATOR PREPARER TRINA GARCIA M.D. Performed By: #### M G, TSH3, CBC, DIFF CBC, PT, PTT, CMP #### [facility] [address] Platelet adequacy [Presence] in Blood by Light microscopyOrdered By: Shukri Francisco on 11-25-2022 Platelets LM Ql (Bld) Normal Normal [facility] Platelet mean volume Auto (B ld) [Entitic vol]Ordered By: Shukri Francisco on 11-25-2022 Platelet mean volume (Bld) [Entitic vol] 8.1 fL 6.6-10.1 [facility] Platelet morphology finding [Identifier] in BloodOrdered By: Shukri Francisco on 11-25-2022 Platelet morphology finding Nom (Bld) Normal Normal [facility] Platelet poor plasma interna tional normalized ratio (INR) by coagulation assay (relatOrdered By: Shukri Francisco on 11-25-2022 INR Coag (PPP) [Relative time] 0.9 {INR} [facility] Comment on above: INR Therapeutic Rang [...] 11-25-2022 Platelets (Bld) [#/Vol] 278 10*3/uL 150-450 [facility] Potassium [Moles/volume] in Serum or PlasmaOrdered By: Shukri Francisco on 11-25-2022 Potassium [Moles/Vol] 4.0 mmol/L 3.5-5.1 [facility] Protein Auto test strip (U) [Mass/Vol]Ordered By: Shukri Francisco on 11-25-2022 Protein (U) [Mass/Vol] 300 mg/dL Negative [facility] Protein [Mass/volume] in Ser um or PlasmaOrdered By: Shukri Francisco on 11-25-2022 Protein [Mass/Vol] 6.2 g/dL 6.4-8.9 [facility] Prothrombin Time INRon 11-25 INR Coag (PPP) [Relative time] 0.9 {INR} Normal [facility] Comment on above: Result Comment: INR [...] CBC, DIFF CBC, PT, PTT, CMP #### [facility] [address] [place] [address] [place] PT Coag (PPP) [Time] 10.6 s Normal 9.0-12.9 [facility] [facility] Comment on above: Performed By: #### M G, TSH3, CBC, DIFF CBC, PT, PTT, CMP #### [facility] [address] [place] [address] [place] RBC Auto (Bld) [#/Vol]Ordere d By: Shukri Francisco on 11-25-2022 RBC (Bld) [#/Vol] 4.24 10*6/uL 3.90-5.60 [facility] RBC morphologyOrdered By: Allie Francisco on 11-25-2022 RBC morphology finding Nom (Bld) Normal Normal [facility] Segmented neutrophils/100 WB C Manual cnt (Bld)Ordered By: Shukri Francisco on 11-25-2022 Segmented neutrophils/100 WBC (Bld) 85 % 50-70 [facility] Serum or plasma albumin/glob ulin mass ratioOrdered By: Shukri Francisco on 11-25-2022 Albumin/Globulin [Mass ratio] 1.1 {ratio} [facility] Serum or plasma anion gap de terminationOrdered By: Shukri Francisco on 11-25-2022 Anion gap [Moles/Vol] 11.0 mmol/L 6.0-15.0 [facility] Sodium [Moles/volume] in Ser um or PlasmaOrdered By: Shukri Francisco on 11-25-2022 Sodium [Moles/Vol] 142 mmol/L 136-145 [facility] Specific gravity Auto test s trip (U) [Rel density]Ordered By: Shukri Francisco on 11-25-2022 Specific gravity (U) [Rel density] 1.024 1.001-1.030 [facility] Squamous epithelial cells de tection in urine sediment by light microscopyOrdered By: Shukri Francisco on 11-25-2022 Epithelial cells.squamous LM Ql (Urine sed) 0-1 [HPF] 0-2 [facility] Thyroid Stimulating Hormoneo n 11-25-2022 TSH Qn 0.17 m[IU]/L Low 0.45-5.33 [facility] Comment on above: Result Comment: PERF ORMED BY: [place] [address] PATHOLOGIST [employer]LECT[employer] RE[employer]ERATOR PREPARER TRINA GARCIA M.D. Performed By: #### M G, TSH3, CBC, DIFF CBC, PT, PTT, CMP #### [address] Thyrotropin [Units/volume] i n Serum or PlasmaOrdered By: Shukri Francisco on 11-25-2022 TSH Qn 0.17 m[IU]/L 0.45-5.33 [facility] Thyroxine (T4) free [Mass/vo lume] in Serum or PlasmaOrdered By: Shukri Francisco on 11-25-2022 Free T4 [Mass/Vol] 1.31 ng/dL 0.61-1.12 [facility] Troponin I High Sensitivityo n 11-25-2022 Troponin I High Sensitivity 28.3 pg/mL High 0.0-20.0 [facility] Comment on above: Result Comment: PERF ORMED BY: [place] [address] PATHOLOGIST ELECTR[employer] REFRIGERATOR PREPARER TRINA GARCIA M.D. Performed By: #### M G, TSH3, CBC, DIFF CBC, PT, PTT, CMP #### [address] Troponin I.cardiac [Mass/vol ume] in Serum or Plasma by Detection limit <= 0.01 ng/Ordered By: Shukri Francisco on 11-25-2022 Troponin I.cardiac DL <= 0.01 ng/mL [Mass/Vol] 28.3 pg/mL 0.0-20.0 [facility] Urea nitrogen [Mass/volume] in Serum or PlasmaOrdered By: Shukri Francisco on 11-25-2022 Urea nitrogen [Mass/Vol] 35 mg/dL 7-25 [facility] Urine bacteria detection by automated methodOrdered By: Shukri Francisco on 11-25-2022 Bacteria Auto Ql (U) None seen None Seen [facility] Urine clarity by refractomet ry automatedOrdered By: Shukri Francisco on 11-25-2022 Clarity Refractometry automated (U) Clear Clear [facility] Urine glucose measurement by automated test strip (mass/volume)Ordered By: Shukri Francisco on 11-25-2022 Glucose Auto test strip (U) [Mass/Vol] Normal mg/dL Normal [facility] Urine hemoglobin detection b y automated test stripOrdered By: Shukri Francisco on 11-25-2022 Hemoglobin Auto test strip Ql (U) Negative Negative [facility] Urine leukocyte esterase det ection by automated test stripOrdered By: Shukri Francisco on 11-25-2022 Leukocyte esterase Auto test strip Ql (U) Negative Negative [facility] Urobilinogen Auto test strip (U) [Mass/Vol]Ordered By: Shukri Francisco on 11-25-2022 Urobilinogen (U) [Mass/Vol] Normal mg/dL Normal [facility] WBC Auto (Bld) [#/Vol]Ordere d By: Shukri Francisco on 11-25-2022 WBC (Bld) [#/Vol] 21.8 10*3/uL 4.1-10.5 [facility] XR chest 1V portableon 11-25 XR chest 1V portable [facility] [place] [address] XRay Report Signed Patient: Franki Hernandez MR#: [id number] : 1940 Acct:[id number] Age/Sex: 82 / M ADM Date: 11/25/22 [...] David Chahal M.D.11/25/2022 6:13 PM Dictation Location: [place] [address] Transcribed By: [facility] 11/25/221812 Dictated By: David Chahal DO 11/25/221811 Signed By: 11/25/221812 Normal [facility] pH Auto test strip (U)Ordere d By: Shukri Francisco on 11-25-2022 pH (U) 6.0 [pH] 5.0-9.0 [facility] XR LSPINE 2_3 VIEWSon 2022 XR LSPINE 2_3 VIEWS Normal [facility] CBC AUTO DIFFon 09-12-2022 BASO # 0.1 103/ul Normal 0.0-0.1 [facility] Comment on above: Performed By: #### C BC ####[facility] [address] [place] [address]Dr. Villa Yanes Basophils/100 WBC (Bld) 0.3 % Normal 0.2-2.0 [facility] Comment on above: Performed By: #### C BC ####[facility] [address] [place], [place] [address]Dr. Villa Yanes EO # 0.1 103/ul Normal 0.0-0.7 [facility] Comment on above: Performed By: #### C BC ####[facility] [address] [place], [place] [address]Dr. Villa Yanes Eosinophils/100 WBC (Bld) 0.5 % Critically low 0.9-7.0 [facility] Comment on above: Performed By: #### C BC ####[facility] R[address] [place], [place] [address]Dr. Villa Yanes Erythrocyte distribution width (RBC) [Ratio] 12.3 % Normal 11.0-15.0 [facility] Comment on above: Performed By: #### C BC ####[facility] Bt[address] [place], [place] [address]Dr. Villa Yanes Hematocrit (Bld) [Volume fraction] 40.2 % Critically low 42.0-54.0 [facility] Comment on above: Performed By: #### C BC ####[facility] [address] [place], [place] [address]Dr. Villa Yanes Hemoglobin (Bld) [Mass/Vol] 12.9 g/dL Critically low 14.0-18.0 [facility] Comment on above: Performed By: #### C BC ####[facility] Hb[address]alybztx[address] [place], [place] [address]Dr. Villa Yanes IG # 0.16 10e3/ul Critically high 0.00-0.03 [facility] Comment on above: Performed By: #### C BC ####[facility] [address] [place] [id number]. Villa Yanes IG % 1.0 % Critically high 0.0-0.5 [facility] Comment on above: Performed By: #### C BC ####[facility] [address] [place] [id number]. Villa Yanes LYMPH # 1.2 103/ul Normal 1.2-3.8 [facility] Comment on above: Performed By: #### C BC ####[facility] [address] [place] [address]Dr. Villa Yanes Lymphocytes/100 WBC (Bld) 7.2 % Critically low 20.5-60.0 [facility] Comment on above: Performed By: #### C BC ####[facility] [address] [place] [address]Dr. Villa Yanes MANUAL DIFF REQ NO Normal [facility] Comment on above: Performed By: #### C BC ####[facility] [address] [place], [place] [address]Dr. Villa Yanes MCH (RBC) [Entitic mass] 31.9 pg Normal 25.9-34.0 [facility] Comment on above: Performed By: #### C BC ####[facility] [address] [place], [place] [address]Dr. Villa Yanes MCHC (RBC) [Mass/Vol] 32.1 g/dL Normal 29.9-35.2 [facility] Comment on above: Performed By: #### C BC ####[facility] [address] [place], [place] [address]Dr. Villa Yanes MCV (RBC) [Entitic vol] 99.5 fL Critically high 80.0-94.0 [facility] Comment on above: Performed By: #### C BC ####[facility] [address] [place], [place] [address]Dr. Villa Yanes MONO # 0.9 103/ul Critically high 0.3-0.8 [facility] Comment on above: Performed By: #### C BC ####[facility] [address] [place] [address]Dr. Villa Yanes Monocytes/100 WBC (Bld) 5.6 % Normal 1.7-12.0 [facility] Comment on above: Performed By: #### C BC ####[facility] [address] [place] [id number]. Villa Yanes NEUT # 14.1 103/ul Critically high 1.4-6.5 [facility] Comment on above: Performed By: #### C BC ####[facility] [address] [place] [address]Dr. Villa Yanes Neutrophils/100 WBC (Bld) 85.4 % Critically high 43.0-75.0 [facility] Comment on above: Performed By: #### C BC ####[facility] [address] [place] [address]Dr. Villa Yanes Platelet mean volume (Bld) [Entitic vol] 9.9 fL Normal 9.5-13.5 [facility] Comment on above: Performed By: #### C BC ####[facility] [address]cy[address] [place] [address]Dr. Villa Yanes PLT 275 103/ul Normal 150-450 [facility] Comment on above: Performed By: #### C BC ####[facility] [address] [place] [address]Dr. Villa Yanes RBC 4.04 106/ul Critically low 4.70-6.10 [facility] Comment on above: Performed By: #### C BC ####[facility] [address] [place] [address]Dr. Villa Yanes WBC 16.5 103/ul Critically high 4.0-11.0 [facility] Comment on above: Performed By: #### C BC ####[facility] [address] [place] [address]Dr. [address] CT ABD/PELV W CONon 09-13-[address] ABD/PELV W CON Normal [facility] ER URINE PROFILEon 3 Bilirubin Ql (U) Negative Normal NEGATIVE [facility] Comment on above: Performed By: #### E RUR ####[facility] [address]ci[address] [place], [place] [address]Dr. Villa Yanes Clarity (U) CLEAR Normal CLEAR [facility] Comment on above: Performed By: #### E RUR ####[facility] [address] [place], [place] [address]Dr. Villa Yanes Color (U) LT. YELLOW Normal YELLOW [facility] Comment on above: Performed By: #### E RUR ####[facility] [address]st[address] [place], [place] [address]Dr. Villa Yanes ERUAHD A micrscopic examina tion will be performed if indicated. Normal [facility] Comment on above: Performed By: #### E RUR ####[facility] [address]pr[address] [place], [place] [address]Dr. Villa Yanes Glucose Ql (U) Negative Normal NEGATIVE [facility] Comment on above: Performed By: #### E RUR ####[facility] [address]oz[address] [place], [place] [address]Dr. Villa Yanes Hemoglobin Ql (U) Negative Normal NEGATIVE [facility] Comment on above: Performed By: #### E RUR ####[facility] [address]be[address] [place], [place] [address]Dr. Villa Yanes Ketones Ql (U) Negative Normal NEGATIVE [facility] Comment on above: Performed By: #### E RUR ####[facility] [address]fii[address] [place], [place] [address]Dr. Villa Yanes LEUKOCYTES Negative Normal NEGATIVE [facility] Comment on above: Performed By: #### E RUR ####[facility] Psylfoxckc[address] [place], [place] [address]Dr. Brooklynkaren Joaquín Nitrite Ql (U) Negative Normal NEGATIVE [facility] Comment on above: Performed By: #### E RUR ####[facility] [address] [place], [place] [address]Dr. Brooklynkaren Yanes pH (U) 8.0 [pH] Normal 5-9 [facility] Comment on above: Performed By: #### E RUR ####[facility] [address] [place] [address]Dr. Villa Yanes Protein (U) [Mass/Vol] 100 mg/dL Abnormal NEGATIVE/ TRACE [facility] Comment on above: Performed By: #### E RUR ####[facility] [address] [place] [address]Dr. Villa Yanes SPEC GRAVITY 1.020 Normal 1.005-<=1.0 [facility] Comment on above: Performed By: #### E RUR ####[facility] [address] [place], [place] [address]Dr. Villa Yanes UR MICRO IND NOT INDICATED Normal [facility] Comment on above: Performed By: #### E RUR ####[facility] [address]uz[address]ksw[address] [place], [place] [address]Dr. Villa Yanes Urobilinogen Qn (U) 0.2 {Mackenzie'U}/dL Normal 0.2 - 1. 0 [facility] Comment on above: Performed By: #### E RUR ####[facility] X[address]hw[address] [place], [place] [address]Dr. Villa Yanes PROF 14(COMP METB)on 023 Albumin [Mass/Vol] 3.3 g/dL Critically low 3.4-5.0 [facility] Comment on above: Performed By: #### H DEE, CMP ####[facility] [address]imkscsv[address] [place], [place] [address]Dr. Villa Yanes Albumin/Globulin [Mass ratio] 0.9 {ratio} Normal [facility] Comment on above: Performed By: #### H DEE, CMP ####[facility] P[address]hsgsd[address] [place], [place] [address]Dr. Villa Yanes ALP [Catalytic activity/Vol] 208 U/L Critically high 46-116 [facility] Comment on above: Performed By: #### H DEE, CMP ####[facility] Evpyoqfbmb[address] [place], [place] [address]Dr. Villa Yanes ALT [Catalytic activity/Vol] 16 U/L Normal 16-63 [facility] Comment on above: Performed By: #### H DEE, CMP ####[facility] Hq[address]apzvvuq[address] [place], [place] [address]Dr. Villa Yanes Anion gap [Moles/Vol] 11.3 mmol/L Normal [facility] Comment on above: Performed By: #### H DEE, CMP ####[facility] X[address]zalxp[address] [place], [place] [address]Dr. Villa Yanes AST [Catalytic activity/Vol] 12 U/L Critically low 15-37 [facility] Comment on above: Performed By: #### H DEE, CMP ####[facility] A[address]qwtpv[address] [place], [place] [address]Dr. Villa Yanes Bilirubin [Mass/Vol] 0.3 mg/dL Normal 0.2-1.0 [facility] Comment on above: Performed By: #### Carlos PRICE, CMP ####[facility] Kx[address]yrvz[address] [place], [place] [address]Dr. Villa Yanes Calcium [Mass/Vol] 9.8 mg/dL Normal 8.5-10.1 [facility] Comment on above: Performed By: #### H DEE, CMP ####[facility] [address]eofrwbg[address] [place], [place] [address]Dr. Villa Yanes Chloride [Moles/Vol] 103 mmol/L Normal 98-107 [facility] Comment on above: Performed By: #### H DEE, CMP ####[facility] Oklbwoeugo[address] [place], [place] [address]Dr. Villa Yanes CO2 [Moles/Vol] 29.6 mmol/L Normal 21.0-32.0 [facility] Comment on above: Performed By: #### H DEE, CMP ####[facility] Nutnkyccuq[address] [place], [place] [address]Dr. Villa Yanes Creatinine [Mass/Vol] 1.12 mg/dL Normal 0.70-1.30 [facility] Comment on above: Performed By: #### H DEE, CMP ####[facility] [address] [place] [address]Dr. Villa Yanes EGFR-AF BELIZEAN >60 Normal >=60 [facility] Comment on above: Performed By: #### H DEE, CMP ####[facility] [address] [place] [address]Dr. Villa Yanes EGFR-NON AF BELIZEAN >60 Normal >=60 [facility] Comment on above: Performed By: #### H DEE, CMP ####[facility] [address]qtt[address]nj[address] [place] [address]Dr. Villa Yanes Globulin (S) [Mass/Vol] 3.7 g/dL Normal [facility] Comment on above: Performed By: #### H DEE, CMP ####[facility] B[address]fe[address] [place], [place] [address]Dr. Villa Yanes Glucose [Mass/Vol] 151 mg/dL Critically high 74-106 [facility] Comment on above: Performed By: #### H DEE, CMP ####[facility] Ztrkxkeuvq[address] [place], [place] [address]Dr. Villa Yanes Potassium [Moles/Vol] 3.9 mmol/L Normal 3.5-5.1 [facility] Comment on above: Performed By: #### H DEE, CMP ####[facility] C[address]mseshh[address] [place], [place] [address]Dr. Villa Yanes Protein [Mass/Vol] 7.0 g/dL Normal 6.4-8.2 [facility] Comment on above: Performed By: #### H DEE, CMP ####[facility] [address]uwk[address] [place] [address]Dr. Villa Yanes Sodium [Moles/Vol] 140 mmol/L Normal 136-145 [facility] Comment on above: Performed By: #### H DEE, CMP ####[facility] [address] [place] [address]Dr. Villa Yanes Urea nitrogen [Mass/Vol] 30.0 mg/dL Critically high 7.0-18.0 [facility] Comment on above: Performed By: #### H DEE, CMP ####[facility] [address]cxsu[address] [place] [address]Dr. Villa Yanes Urea nitrogen/Creatinine [Mass ratio] 26.8 mg/mg Normal [facility] Comment on above: Performed By: #### H DEE, CMP ####[facility] [address]ow[address] [place], [place] [address]Dr. Villa Yanes TROPONIN, HIGH SENSITIVITYon 09-12-2022 HSTROP 8.9 pg/mL Normal 4.0-76.1 [facility] Comment on above: Result Comment: CUT- OFF POINTS HAVE BEEN ESTABLISHED BASED ON THE FOURTH UNIVERSAL DEFINITIONS OF MYOCARDIALINFARCTION. THE UPPER REFERENCE LIMIT (URL) OF TROPONIN, DEFINED THE 99TH PERCENTILE OFcTnI DISTRIBUTION IN A REFERENCE POPULATION, HAS BEEN CONFIRMED THE DECISION THRESHOLDFOR PA DIAGNOSIS. Performed By: #### H DEE, CMP ####[facility] [address]hr[address] [place], [place] [address]Dr. Villa Yanes CBC AUTO DIFFon 08-18-2022 BASO # 0.1 103/ul Normal 0.0-0.1 [facility] Comment on above: Performed By: #### C BC ####[facility] Qsmtoinayk[address] [place], [place] [address]Dr. Villa Joaquín Basophils/100 WBC (Bld) 0.6 % Normal 0.2-2.0 [facility] Comment on above: Performed By: #### C BC ####[facility] Hehuurnamy[address] [place], [place] [address]Dr. Villa Yanes EO # 0.1 103/ul Normal 0.0-0.7 [facility] Comment on above: Performed By: #### C BC ####[facility] [address]ucbz[address] [place] [address]Dr. Villa Yanes Eosinophils/100 WBC (Bld) 1.2 % Normal 0.9-7.0 [facility] Comment on above: Performed By: #### C BC ####[facility] Ezqyryxfqk[address] [place], [place] [address]Dr. Villa Yanes Erythrocyte distribution width (RBC) [Ratio] 12.3 % Normal 11.0-15.0 [facility] Comment on above: Performed By: #### C BC ####[facility] [address] [place] [address]DrBrenden Villa Yanes Hematocrit (Bld) [Volume fraction] 31.9 % Critically low 42.0-54.0 [facility] Comment on above: Performed By: #### C BC ####[facility] Zfutxoczgz[address] [place] [address]DrBrenden Yanes Hemoglobin (Bld) [Mass/Vol] 10.4 g/dL Critically low 14.0-18.0 [facility] Comment on above: Performed By: #### C BC ####[facility] [address]yslnii[address] [place], [place] [address]DrBrenden Yanes IG # 0.09 10e3/ul Critically high 0.00-0.03 [facility] Comment on above: Performed By: #### C BC ####[facility] [address]jlx[address] [place], [place] [address]DrBrenden Yanes IG % 1.0 % Critically high 0.0-0.5 [facility] Comment on above: Performed By: #### C BC ####[facility] V[address]xvaxny[address] [place], [place] [address]DrBrenden Yanes LYMPH # 1.6 103/ul Normal 1.2-3.8 [facility] Comment on above: Performed By: #### C BC ####[facility] [address]mpxkbdu[address] [place], [place] [address]DrBrenden Yanes Lymphocytes/100 WBC (Bld) 17.9 % Critically low 20.5-60.0 [facility] Comment on above: Performed By: #### C BC ####[facility] [address]bx[address]bx[address]op[address] [place], [place] [address]DrBrenden Yanes MANUAL DIFF REQ NO Normal [facility] Comment on above: Performed By: #### C BC ####[facility] Nkegknozcd[address] [place], [place] [address]DrBrenden Yanes MCH (RBC) [Entitic mass] 32.2 pg Normal 25.9-34.0 [facility] Comment on above: Performed By: #### C BC ####[facility] [address]sujv[address] [place] [id number]. Villa Joaquín MCHC (RBC) [Mass/Vol] 32.6 g/dL Normal 29.9-35.2 [facility] Comment on above: Performed By: #### C BC ####[facility] Ret[address]ytgb[address] [place] [id number]. Villa Yanes MCV (RBC) [Entitic vol] 98.8 fL Critically high 80.0-94.0 [facility] Comment on above: Performed By: #### C BC ####[facility] [address]mf[address] [place], [place] [address]Dr. Villa Yanes MONO # 0.6 103/ul Normal 0.3-0.8 [facility] Comment on above: Performed By: #### C BC ####[facility] E[address]vrkjgug[address] [place], [place] [address]Dr. Villa Yanes Monocytes/100 WBC (Bld) 6.6 % Normal 1.7-12.0 [facility] Comment on above: Performed By: #### C BC ####[facility] [address]mt[address]qsr[address] [place], [place] [address]Dr. Villa Yanes NEUT # 6.6 103/ul Critically high 1.4-6.5 [facility] Comment on above: Performed By: #### C BC ####[facility] W[address]xxvncme[address] [place], [place] [address]Dr. Villa Yanes Neutrophils/100 WBC (Bld) 72.7 % Normal 43.0-75.0 [facility] Comment on above: Performed By: #### C BC ####[facility] [address] [place], [place] [id number] Yanes Platelet mean volume (Bld) [Entitic vol] 9.6 fL Normal 9.5-13.5 [facility] Comment on above: Performed By: #### C BC ####[facility] [address]mi[address] [place], [place] [address]Dr. Villa Yanes PLT 206 103/ul Normal 150-450 [facility] Comment on above: Performed By: #### C BC ####[facility] [address] [place] [address]Dr. Villa Yanes RBC 3.23 106/ul Critically low 4.70-6.10 [facility] Comment on above: Performed By: #### C BC ####[facility] [address]rqu[address] [place] [address]Dr. Villa Yanes WBC 9.0 103/ul Normal 4.0-11.0 [facility] Comment on above: Performed By: #### C BC ####[facility] [address]ix[address] [place] [address]Dr. Villa Yanes CULTURE URINEon 08-18-2022 CULTURE URINE Culture Observations : LIGHT GROWTH OF MIXED SKIN ARACELI. NO POTENTIAL PATHOGENS SEEN. Normal [facility] Comment on above: Performed By: #### U RCX ####[facility] Of[address]znqqlij[address] [place], [place] [address]DrBrenden Yanes PROF CHEM 8 (BAS METB)on Anion gap [Moles/Vol] 9.4 mmol/L Normal [facility] Comment on above: Performed By: #### B MP ####[facility] T[address]qyoc[address] [place], [place] [address]Dr. Villa Yanes Calcium [Mass/Vol] 8.8 mg/dL Normal 8.5-10.1 [facility] Comment on above: Performed By: #### B MP ####[facility] [address]ffilavcyn[address] [place], [place] [address]Dr. Villa Yanes Chloride [Moles/Vol] 108 mmol/L Critically high 98-107 [facility] Comment on above: Performed By: #### B MP ####[facility] [address]at[address] [place], [place] [address]DrBrenden Yanes CO2 [Moles/Vol] 28.5 mmol/L Normal 21.0-32.0 [facility] Comment on above: Performed By: #### B MP ####[facility] Lntbdkkcve[address] [place], [place] [address]Dr. Villa Yanes Creatinine [Mass/Vol] 0.76 mg/dL Normal 0.70-1.30 [facility] Comment on above: Performed By: #### B MP ####[facility] [address]rtthd[address] [place] [address]Dr. Brooklynkaren Joaquín EGFR-AF BELIZEAN >60 Normal >=60 [facility] Comment on above: Performed By: #### B MP ####[facility] Kvbtvbohic[address] [place] [address]Dr. Vlila Yanes EGFR-NON AF BELIZEAN >60 Normal >=60 [facility] Comment on above: Performed By: #### B MP ####[facility] Zsskh[address]niy[address] [place], [place] [address]Dr. Villa Yanes Glucose [Mass/Vol] 84 mg/dL Normal 74-106 [facility] Comment on above: Performed By: #### B MP ####[facility] Kfrbevegyj39[address] [place], [place] [address]Dr. Villa Yanes Potassium [Moles/Vol] 3.9 mmol/L Normal 3.5-5.1 [facility] Comment on above: Performed By: #### B MP ####[facility] Ocmoowjswo9[address] [place], [place] [address]Dr. Villa Yanes Sodium [Moles/Vol] 142 mmol/L Normal 136-145 [facility] Comment on above: Performed By: #### B MP ####[facility] Pughqlryim[address] [place], [place] [address]Dr. Villa Yanes Urea nitrogen [Mass/Vol] 15.0 mg/dL Normal 7.0-18.0 [facility] Comment on above: Performed By: #### B MP ####[facility] Uwwjszihem[address] [place], [place] [address]Dr. Villa Yanes Urea nitrogen/Creatinine [Mass ratio] 19.7 mg/mg Normal [facility] Comment on above: Performed By: #### B MP ####[facility] Kjpmzqftnk4[address] [place], [place] [address]Dr. Villa Yanes UA RANDOM W/MICROSCOPICon BACTERIA NONE SEEN Normal NONE SEEN [facility] Comment on above: Performed By: #### U AMIC ####[facility] [address]pvyhr[address] [place] [address]Dr. Villa Yanes Bilirubin Ql (U) Negative Normal NEGATIVE [facility] Comment on above: Performed By: #### U AMIC ####[facility] Bfselxspaz[address] [place] [address]Dr. Brooklynkaren Yanes CAST NONE SEEN Normal NONE SEEN [facility] Comment on above: Performed By: #### U AMIC ####[facility] Zzzpteppdi[address] [place], [place] [address]Dr. Villa Yanes Clarity (U) CLEAR Normal CLEAR [facility] Comment on above: Performed By: #### U AMIC ####[facility] Wscehdrwhm[address] [place], [place] [address]Dr. Brooklynkaren Yanes Color (U) LT. YELLOW Normal YELLOW [facility] Comment on above: Performed By: #### U AMIC ####[facility] Hsjpvqscak[address] [place], [place] [address]Dr. Villa Joqauín Crystals LM Nom (Urine sed) NONE SEEN Normal NONE SEEN [facility] Comment on above: Performed By: #### U AMIC ####[facility] Fxdtcufmfl[address] [place], [place] [address]Dr. Villa Joaquín Epithelial cells LM Ql (Urine sed) NONE SEEN Normal NONE SEEN /RARE [facility] Comment on above: Performed By: #### U AMIC ####[facility] Kljyaqpgdg4[address] [place], [place] [address]Dr. Villa Yanes Glucose Ql (U) Negative Normal NEGATIVE [facility] Comment on above: Performed By: #### U AMIC ####[facility] Hychmgncvq[address] [place], [place] [address]Dr. Villa Yanes Hemoglobin Ql (U) Negative Normal NEGATIVE [facility] Comment on above: Performed By: #### U AMIC ####[facility] Hsarlxlqti[address] [place], [place] [address]Dr. Villa Yanes Ketones Ql (U) Negative Normal NEGATIVE [facility] Comment on above: Performed By: #### U AMIC ####[facility] [address]cyr[address] [place] [address]Dr. Villa Yanes LEUKOCYTES Negative Normal NEGATIVE [facility] Comment on above: Performed By: #### U AMIC ####[facility] Tixsm[address]zwmj[address] [place] [address]Dr. Villa Yanes MUCOUS NONE SEEN Normal NONE SEEN [facility] Comment on above: Performed By: #### U AMIC ####[facility] Qbndkqzzch[address] [place] [address]Dr. Villa Yanes Nitrite Ql (U) Negative Normal NEGATIVE [facility] Comment on above: Performed By: #### U AMIC ####[facility] Pu[address]uddgycf[address] [place] [address]Dr. Villa Yanes pH (U) 7.0 [pH] Normal 5-9 [facility] Comment on above: Performed By: #### U AMIC ####[facility] Phmekocaca[address] [place], [place] [address]Dr. Villa Yanes RBC 0-2 Normal 0-2 [facility] Comment on above: Performed By: #### U AMIC ####[facility] Odcxfgbtfb[address] [place], [place] [address]Dr. Villa Yanes SPEC GRAVITY 1.015 Normal 1.005-<=1.0 25 [facility] Comment on above: Performed By: #### U AMIC ####[facility] Haqxogwjij68[address] [place], [place] [address]Dr. Villa Yanes UA PROTEIN 100 mg/dl Abnormal NEGATIVE/ TRACE [facility] Comment on above: Performed By: #### U AMIC ####[facility] Xqtfwlumiz[address] [place] [address]Dr. Villa Yanes Urobilinogen Qn (U) 0.2 {Mackenzie'U}/dL Normal 0.2 - 1. 0 [facility] Comment on above: Performed By: #### U AMIC ####[facility] Lsjxjxosix[address] [place], [place] [address]Dr. Villa Yanes WBC NONE SEEN Normal NONE SEEN [facility] Comment on above: Performed By: #### U AMIC ####[facility] Bv[address]ckhguw[address] [place] [id number]. Villa Yanes ACETONE SERUMon 08-17-2022 ACETONE Negative Normal NEGATIVE [facility] Comment on above: Performed By: #### A CETON ####[facility] Cizluyaxmk[address] [place] [id number]. Villa Yanes CBC AUTO DIFFon 08-17-2022 BASO # 0.1 103/ul Normal 0.0-0.1 [facility] Comment on above: Performed By: #### C BC ####[facility] Armdrnlmwu[address] [place] [address]Dr. Villa Yanes Basophils/100 WBC (Bld) 0.4 % Normal 0.2-2.0 [facility] Comment on above: Performed By: #### C BC ####[facility] Oxaatmdibf[address] [place], [place] [address]Dr. Villa Yanes EO # 0.1 103/ul Normal 0.0-0.7 [facility] Comment on above: Performed By: #### C BC ####[facility] Fzdutucety7[address] [place], [place] [address]Dr. Villa Yanes Eosinophils/100 WBC (Bld) 0.4 % Critically low 0.9-7.0 [facility] Comment on above: Performed By: #### C BC ####[facility] Ukgfexjetn13[address] [place], [place] [address]Dr. Villa Yanes Erythrocyte distribution width (RBC) [Ratio] 12.5 % Normal 11.0-15.0 [facility] Comment on above: Performed By: #### C BC ####[facility] Zndrehafmg[address] [place], [place] [address]Dr. Vilal Yanes Hematocrit (Bld) [Volume fraction] 37.8 % Critically low 42.0-54.0 [facility] Comment on above: Performed By: #### C BC ####[facility] Tfisvcymkb[address] [place], [place] [address]Dr. Villa Yanes Hemoglobin (Bld) [Mass/Vol] 12.4 g/dL Critically low 14.0-18.0 [facility] Comment on above: Performed By: #### C BC ####[facility] [address]tqegogxrg[address] [place] [address]Dr. Villa Yanes IG # 0.16 10e3/ul Critically high 0.00-0.03 [facility] Comment on above: Performed By: #### C BC ####[facility] Ykxyvomazv[address] [place] [address]DrBrenden Yanes IG % 1.2 % Critically high 0.0-0.5 [facility] Comment on above: Performed By: #### C BC ####[facility] Gvscobpmhe[address] [place], [place] [address]DrBrenden Yanes LYMPH # 1.1 103/ul Critically low 1.2-3.8 [facility] Comment on above: Performed By: #### C BC ####[facility] Tlbyrlvpmp[address] [place] [address]DrBrenden Yanes Lymphocytes/100 WBC (Bld) 8.0 % Critically low 20.5-60.0 [facility] Comment on above: Performed By: #### C BC ####[facility] Ofatsfoyff[address] [place], [place] [address]DrBrenden Yanes MANUAL DIFF REQ NO Normal [facility] Comment on above: Performed By: #### C BC ####[facility] Ymslzyehup[address] [place] [address]DrBrenden Yanes MCH (RBC) [Entitic mass] 32.0 pg Normal 25.9-34.0 [facility] Comment on above: Performed By: #### C BC ####[facility] Aajufrqijw[address] [place], [place] [address]Dr. Villa Yanes MCHC (RBC) [Mass/Vol] 32.8 g/dL Normal 29.9-35.2 [facility] Comment on above: Performed By: #### C BC ####[facility] Atgyeoslzi[address] [place] [address]DrBrenden Yanes MCV (RBC) [Entitic vol] 97.7 fL Critically high 80.0-94.0 [facility] Comment on above: Performed By: #### C BC ####[facility] Fedtyndmpo6[address] [place] [id number]. Villa Yanes MONO # 0.9 103/ul Critically high 0.3-0.8 [facility] Comment on above: Performed By: #### C BC ####[facility] Gcavtrmvgr[address] [place] [id number]. Villa Yanes Monocytes/100 WBC (Bld) 6.4 % Normal 1.7-12.0 [facility] Comment on above: Performed By: #### C BC ####[facility] Qqfhoiemwu[address] [place] [id number]. Villa Yanes NEUT # 11.3 103/ul Critically high 1.4-6.5 [facility] Comment on above: Performed By: #### C BC ####[facility] I[address]iewlljr[address] [place] [address]Dr. Villa Yanes Neutrophils/100 WBC (Bld) 83.6 % Critically high 43.0-75.0 [facility] Comment on above: Performed By: #### C BC ####[facility] Fbvboifihe0[address] [place] [id number]. Villa Yanes Platelet mean volume (Bld) [Entitic vol] 9.2 fL Critically low 9.5-13.5 [facility] Comment on above: Performed By: #### C BC ####[facility] Rlewapyljs[address] [place] [id number]. Villa Yanes PLT 279 103/ul Normal 150-450 [facility] Comment on above: Performed By: #### C BC ####[facility] Tmtzkrqujy9[address] [place] [id number]. Villa Yanes RBC 3.87 106/ul Critically low 4.70-6.10 [facility] Comment on above: Performed By: #### C BC ####[facility] Iaxkqaplzz68[address] [place] [id number]. Villa Yanes WBC 13.6 103/ul Critically high 4.0-11.0 [facility] Comment on above: Performed By: #### C BC ####[facility] V[address]qipbwdmn[address] [place] [address]Dr. Villa Yanes LACTATE/LACTIC ACIDon 2022 Lactate [Moles/Vol] 1.4 mmol/L Normal 0.4-2.0 [facility] Comment on above: Performed By: #### L ACT ####[facility] Xscsgunogj[address] [place], [place] [address]Dr. Villa Yanes Lactate [Moles/Vol] 1.6 mmol/L Normal 0.4-2.0 [facility] Comment on above: Performed By: #### L ACT ####[facility] Lqgcxbubvy[address] [place], [place] [address]Dr. Villa Yanes LIPASEon 08-17-2022 Lipase [Catalytic activity/Vol] 37.0 U/L Critically low 73.0-393.0 [facility] Comment on above: Performed By: #### L IPA ####[facility] Lmvihljxlw[address] [place], [place] [address]Dr. Villa Yanes POINT OF CARE GLUCOSEon 07-23 Glucose [Mass/Vol] 118 mg/dL Critically high 74-106 [facility] Comment on above: Performed By: #### P OCGLUC ####[facility] Fihsfxfnnm[address] [place], [place] [address]Dr. Villa Yanes Glucose [Mass/Vol] 124 mg/dL Critically high 74-106 [facility] Comment on above: Performed By: #### P OCGLUC ####[facility] Dwrikpvorn[address] [place], [place] [address]Dr. Villa Yanes PROF 14(COMP METB)on 023 Albumin [Mass/Vol] 3.2 g/dL Critically low 3.4-5.0 [facility] Comment on above: Performed By: #### C SHALOM, HSTROPN ####[facility] Yvyuomuacg[address] [place], [place] [address]Dr. Villa Yanes Albumin/Globulin [Mass ratio] 1.0 {ratio} Normal [facility] Comment on above: Performed By: #### C SHALOM, HSTROPN ####[facility] Ennbvfrobh[address] [place] [address]Dr. Villa Yanes ALP [Catalytic activity/Vol] 148 U/L Critically high 46-116 [facility] Comment on above: Performed By: #### C SHALOM, HSTROPN ####[facility] Uzqzlihvjs[address] [place] [address]Dr. Villa Yanes ALT [Catalytic activity/Vol] 11 U/L Critically low 16-63 [facility] Comment on above: Performed By: #### C SHALOM, HSTROPN ####[facility] Vptanmjkja[address] [place] [address]Dr. Villa Yanes Anion gap [Moles/Vol] 14.2 mmol/L Normal [facility] Comment on above: Performed By: #### C SHALOM, HSTROPN ####[facility] Iitbinjjdi[address] [place], [place] [address]Dr. Villa Yanes AST [Catalytic activity/Vol] 9 U/L Critically low 15-37 [facility] Comment on above: Performed By: #### C SHALOM, HSTROPN ####[facility] Fjbybhpfwu[address] [place], [place] [address]Dr. Villa Yanes Bilirubin [Mass/Vol] 0.4 mg/dL Normal 0.2-1.0 [facility] Comment on above: Performed By: #### C SHALOM, HSTROPN ####[facility] Uvnxlzclso8[address] [place], [place] [address]Dr. Villa Yanes Calcium [Mass/Vol] 9.3 mg/dL Normal 8.5-10.1 [facility] Comment on above: Performed By: #### C SHALOM, HSTROPN ####[facility] Bjienkcdhe64[address] [place], [place] [address]Dr. Villa Yanes Chloride [Moles/Vol] 104 mmol/L Normal 98-107 [facility] Comment on above: Performed By: #### C SHALOM, HSTROPN ####[facility] Ejyqpgoako[address] [place], [place] [address]Dr. Villa Yanes CO2 [Moles/Vol] 27.5 mmol/L Normal 21.0-32.0 [facility] Comment on above: Performed By: #### C SHALOM, HSTROPN ####[facility] Bxlqqpvjam66[address] [place] [address]Dr. Villa Yanes Creatinine [Mass/Vol] 1.11 mg/dL Normal 0.70-1.30 [facility] Comment on above: Performed By: #### C MP, HSTROPN ####[facility] Jlyvyufdoq[address] [place] [address]Dr. Villa Yanes EGFR-AF BELIZEAN >60 Normal >=60 [facility] Comment on above: Performed By: #### C SHALOM, HSTROPN ####[facility] Aipjyocoll[address] [place], [place] [address]Dr. Villa Yanes EGFR-NON AF BELIZEAN >60 Normal >=60 [facility] Comment on above: Performed By: #### C SHALOM, HSTROPN ####[facility] Kjbcxhlskq4[address] [place], [place] [address]Dr. Villa Yanes Globulin (S) [Mass/Vol] 3.2 g/dL Normal [facility] Comment on above: Performed By: #### C SHALOM, HSTROPN ####[facility] Ablgfqjdho[address] [place] [address]Dr. Villa Yanes Glucose [Mass/Vol] 163 mg/dL Critically high 74-106 [facility] Comment on above: Performed By: #### C SHALOM, HSTROPN ####[facility] Gbxidhqprf47[address] [place] [address]Dr. Villa Yanes Potassium [Moles/Vol] 3.7 mmol/L Normal 3.5-5.1 [facility] Comment on above: Performed By: #### C MP, HSTROPN ####[facility] Tumonhttih[address] [place] [address]Dr. Villa Yanes Protein [Mass/Vol] 6.4 g/dL Normal 6.4-8.2 [facility] Comment on above: Performed By: #### C SHALOM, HSTROPN ####[facility] Qnzobupauj4[address] [place] [address]Dr. Villa Yanes Sodium [Moles/Vol] 142 mmol/L Normal 136-145 [facility] Comment on above: Performed By: #### C SHALOM, HSTROPN ####[facility] Jzuultkekt6[address] [place] [address]Dr. Villa Yanes Urea nitrogen [Mass/Vol] 23.0 mg/dL Critically high 7.0-18.0 [facility] Comment on above: Performed By: #### C SHALOM, HSTROPN ####[facility] Ccvbjnjnto38[address] [place] [address]Dr. Villa Yanes Urea nitrogen/Creatinine [Mass ratio] 20.7 mg/mg Normal [facility] Comment on above: Performed By: #### C SHALOM, HSTROPN ####[facility] Inxkaskqlh[address] [place], [place] [address]Dr. Villa Yanes RESPIRATORY PANEL PLUSon Adenovirus Not detected Normal NOT DETECTED [facility] Comment on above: Performed By: #### R SPLUS ####[facility] Xdbbbhdutd[address] [place], [place] [address]Dr. Villa Yanes B. Parapertusis Not detected Normal NOT DETECTED [facility] Comment on above: Performed By: #### R SPLUS ####[facility] Zvhfsnpyjm[address] [place], [place] [address]Dr. Villa Yanes B. Pertussis Not detected Normal NOT DETECTED [facility] Comment on above: Performed By: #### R SPLUS ####[facility] Nmxmigoagk026[address] [place], [place] [address]Dr. Villa Yanes Chlamydia Pneumoniae Not detected Normal NOT DETECTED [facility] Comment on above: Performed By: #### R SPLUS ####[facility] Dubxfyjztx76[address] [place], [place] [address]Dr. Villa Yanes Coronavirus 229E Not detected Normal NOT DETECTED [facility] Comment on above: Performed By: #### R SPLUS ####[facility] Ymjijcenun[address] [place], [place] [address]Dr. Villa Yanes Coronavirus HKU1 Not detected Normal NOT DETECTED [facility] Comment on above: Performed By: #### R SPLUS ####[facility] Ykcynpuyux67[address] [place], [place] [address]Dr. Villa [facility] Coronavirus NL63 Not detected Normal NOT DETECTED [facility] Comment on above: Performed By: #### R SPLUS ####[facility] Mezpxmtqgz[address] [place], [place] [address]Dr. Villa [facility] Coronavirus OC43 Not detected Normal NOT DETECTED [facility] Comment on above: Performed By: #### R SPLUS ####[facility] Zqxozwirid[address] [place], [place] [address]Dr. Villa Yanes Influenza A H1 Not detected Normal NOT DETECTED [facility] Comment on above: Performed By: #### R SPLUS ####[facility] Ineouqmayq4[address] [place], [place] [address]Dr. Villa Yanes Influenza A H1 2009 Not detected Normal NOT DETECTED [facility] Comment on above: Performed By: #### R SPLUS ####[facility] Oqyeutdnse25[address] [place], [place] [address]Dr. Villa [facility] Influenza A H3 Not detected Normal NOT DETECTED [facility] Comment on above: Performed By: #### R SPLUS ####[facility] Lsfqvxkpvy45[address] [place], [place] [address]Dr. Villa Yanes Influenza B Not detected Normal NOT DETECTED [facility] Comment on above: Performed By: #### R SPLUS ####[facility] Crltlskpbt[address] [place], [place] [address]Dr. Villa [facility] Metapneumovirus Not detected Normal NOT DETECTED [facility] Comment on above: Performed By: #### R SPLUS ####[facility] Kqiqxrvxmj6[address] [place], [place] [address]Dr. Villa Yanes Mycoplas. Pneumoniae Not detected Normal NOT DETECTED [facility] Comment on above: Performed By: #### R SPLUS ####[facility] Lunlmlqrtd6[address] [place], [place] [address]Dr. Villa Yanes Parainfluenza 1 Not detected Normal NOT DETECTED [facility] Comment on above: Performed By: #### R SPLUS ####[facility] Lrjcnlvuoe25[address] [place] [address]Dr. Villa Yanes Parainfluenza 2 Not detected Normal NOT DETECTED [facility] Comment on above: Performed By: #### R SPLUS ####[facility] Inztwjwhgh[address] [place], [place] [address]Dr. Villa Yanes Parainfluenza 3 Not detected Normal NOT DETECTED [facility] Comment on above: Performed By: #### R SPLUS ####[facility] Xcvrvpykpx[address] [place], [place] [address]Dr. Villa Yanes Parainfluenza 4 Not detected Normal NOT DETECTED [facility] Comment on above: Performed By: #### R SPLUS ####[facility] Giyufmpjqn96[address] [place], [place] [address]Dr. Villa Yanes Rhino/Enterovirus Not detected Normal NOT DETECTED [facility] Comment on above: Performed By: #### R SPLUS ####[facility] Zkgmoedluq12[address] [place], [place] [address]Dr. Villa Yanes RP2 Header 1 RESPIRATORY PANEL: VIRUSES Normal [facility] Comment on above: Performed By: #### R SPLUS ####[facility] Qwgtbsxsza65[address] [place], [place] [address]Dr. Villa Yanes RP2 Header 2 RESPIRATORY PANEL: BACTERIA Normal [facility] Comment on above: Performed By: #### R SPLUS ####[facility] Riphtqwmch[address] [place], [place] [address]Dr. Villa Yanes RSV Not detected Normal NOT DETECTED [facility] Comment on above: Performed By: #### R SPLUS ####[facility] Lpabexamkq[address] [place], [place] [address]Dr. Villa Yanes SARS-CoV-2 (COVID-19) RNA SHELLY+probe Ql (Unsp spec) Not detected Normal NOT DETECTED [facility] Comment on above: Performed By: #### R SPLUS ####[facility] Fdjwpaxnje0[address] [place], [place] [address]Dr. Villa Yanes TROPONIN, HIGH SENSITIVITYon 08-17-2022 HSTROP 9.7 pg/mL Normal 4.0-76.1 [facility] Comment on above: Result Comment: CUT- OFF POINTS HAVE BEEN ESTABLISHED BASED ON THE FOURTH UNIVERSAL DEFINITIONS OF MYOCARDIALINFARCTION. THE UPPER REFERENCE LIMIT (URL) OF TROPONIN, DEFINED THE 99TH PERCENTILE OFcTnI DISTRIBUTION IN A REFERENCE POPULATION, HAS BEEN CONFIRMED THE DECISION THRESHOLDFOR PA DIAGNOSIS. Performed By: #### C MP, HSTROPN ####[facility] [address] [place], [place] [address]Gw. 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 Normal [place] Tobacco Screening.on 023 Adult depression screening assessment No [facility] [employer] DO Work Phone: Fall risk assessment b) One or more fall s in the last year [facility] [employer] DO Work Phone: Tobacco use status CPHS a) Yes [facility] DO Work Phone: XR ABD FLAT_UPon 07-31-2022 XR ABD FLAT_UP Normal [facility] AMMONIAon 07-30-2022 Ammonia (P) [Moles/Vol] 10 umol/L Critically low 11-32 [facility] Comment on above: Performed By: #### A MM ####[facility] Fshsbxjtbm6964 [place], [place] [address]EqBrenden Villa Yanes AMYLASEon 07-30-2022 Amylase [Catalytic activity/Vol] 36 U/L Normal 25-115 [facility] Comment on above: Performed By: #### L IPA, TSH, CANDIE, T7, CMP ####[facility] Tdicujbtfb84[address] [place] [id number]. Brooklynkaren Yanes CBC AUTO DIFFon 07-30-2022 BASO # 0.1 103/ul Normal 0.0-0.1 [facility] Comment on above: Performed By: #### C BC ####[facility] Bruibvbxhr4869 [place] [id number]. Villa Yanes Basophils/100 WBC (Bld) 0.7 % Normal 0.2-2.0 [facility] Comment on above: Performed By: #### C BC ####[facility] Jkdelfzzef9662 [place] [id number]. Villa Yanes EO # 0.0 103/ul Normal 0.0-0.7 [facility] Comment on above: Performed By: #### C BC ####[facility] Buodccpwpn[address] [place] [address]Dr. Villa Yanes Eosinophils/100 WBC (Bld) 0.3 % Critically low 0.9-7.0 [facility] Comment on above: Performed By: #### C BC ####[facility] Tvvkksfiws4415 [place] [id number]. Villa Yanes Erythrocyte distribution width (RBC) [Ratio] 13.1 % Normal 11.0-15.0 [facility] Comment on above: Performed By: #### C BC ####[facility] Smwqqvcjne7737 [place] [id number]. Villa Yanes Hematocrit (Bld) [Volume fraction] 41.2 % Critically low 42.0-54.0 [facility] Comment on above: Performed By: #### C BC ####[facility] Xbufvgofdm5068 [place] [id number]. Villa Yanes Hemoglobin (Bld) [Mass/Vol] 13.7 g/dL Critically low 14.0-18.0 [facility] Comment on above: Performed By: #### C BC ####[facility] Hkbfubaiyh9735 [place] [id number]. Villa Yanes IG # 0.41 10e3/ul Critically high 0.00-0.03 [facility] Comment on above: Performed By: #### C BC ####[facility] Kcsmwcjbto3[address] [place] [address]Dr. Brooklynkaren Yanes IG % 2.8 % Critically high 0.0-0.5 [facility] Comment on above: Performed By: #### C BC ####[facility] Gfnptzwqab1453 [place] [address]DrBrenden Brooklynkaren Yanes LYMPH # 1.7 103/ul Normal 1.2-3.8 [facility] Comment on above: Performed By: #### C BC ####[facility] Jdpghckhzz7318 [place] [address]DrBrenden Brooklynkaren Yanes Lymphocytes/100 WBC (Bld) 11.4 % Critically low 20.5-60.0 [facility] Comment on above: Performed By: #### C BC ####[facility] Jcgryzowjp[address] [place], [place] [address]DrBrenden Brooklynkaren Yanes MANUAL DIFF REQ NO Normal [facility] Comment on above: Performed By: #### C BC ####[facility] Bbaidhvcdq9[address] [place] [address]Dr. Villa Joaquín MCH (RBC) [Entitic mass] 31.9 pg Normal 25.9-34.0 [facility] Comment on above: Performed By: #### C BC ####[facility] Fjwcpkgnas79[address] [place] [address]Dr. Villa Joaquín MCHC (RBC) [Mass/Vol] 33.3 g/dL Normal 29.9-35.2 [facility] Comment on above: Performed By: #### C BC ####[facility] Mfovrnscus[address] [place], [place] [address]DrBrenden Brooklynkaren Yanes MCV (RBC) [Entitic vol] 96.0 fL Critically high 80.0-94.0 [facility] Comment on above: Performed By: #### C BC ####[facility] Tbsoypovmk[address] [place], [place] [address]DrBrenden Yanes MONO # 0.9 103/ul Critically high 0.3-0.8 [facility] Comment on above: Performed By: #### C BC ####[facility] Jszllktggu9581 [place] [id number]. Villa Yanes Monocytes/100 WBC (Bld) 6.4 % Normal 1.7-12.0 [facility] Comment on above: Performed By: #### C BC ####[facility] Bebonetvzj5780 [place] [id number]. Villa Yanes NEUT # 11.6 103/ul Critically high 1.4-6.5 [facility] Comment on above: Performed By: #### C BC ####[facility] Wzydyzttzc4539 [place] [id number]. Villa Yanes Neutrophils/100 WBC (Bld) 78.4 % Critically high 43.0-75.0 [facility] Comment on above: Performed By: #### C BC ####[facility] Clbsppgibi4105 [place] [address]Dr. Villa Yanes Platelet mean volume (Bld) [Entitic vol] 9.2 fL Critically low 9.5-13.5 [facility] Comment on above: Performed By: #### C BC ####[facility] Nwdppaktui5464 [place] [address]Dr. Villa Yanes PLT 368 103/ul Normal 150-450 [facility] Comment on above: Performed By: #### C BC ####[facility] Fwjuzrjhih2695 [place] [id number]. Villa Yanes RBC 4.29 106/ul Critically low 4.70-6.10 [facility] Comment on above: Performed By: #### C BC ####[facility] Yygpvjvrzz2157 [place] [id number]. Villa Yanes WBC 14.8 103/ul Critically high 4.0-11.0 [facility] Comment on above: Performed By: #### C BC ####[facility] Turenklanv0804 [place] [id number]. Villa Yanes Covid-19 PCR ([facility])on SARS-CoV-2 (COVID-19) RNA SHELLY+probe Ql (Unsp spec) Not detected Normal NOT DETECTED [facility] Comment on above: Result Comment: When [...] for this test is supported by the Fire Boat Engineer of Health and Human Service's declaration that [...] be used). Performed By: #### C VDTBH ####[facility] Ythyvzhqwc[address] [place], [place] [address]Dr. Brooklynkaren Yanes FREE THYROXINE INDEX T7on FTI 2.55 Normal 1.30-4.50 [facility] Comment on above: Performed By: #### L IPA, TSH, CANDIE, T7, CMP ####[facility] Bbdizrcnxg49[address] [place] [address]Dr. Brooklynkaren Yanes T3U 38.0 % Normal 33.0-40.0 [facility] Comment on above: Performed By: #### L IPA, TSH, CANDIE, T7, CMP ####[facility] Nkxqmuyncp0571 [place] [id number]. Brooklynkaren Yanes T4 [Mass/Vol] 6.70 ug/dL Normal 4.50-12.10 [facility] Comment on above: Performed By: #### L IPA, TSH, CANDIE, T7, CMP ####[facility] Xwloehdinb9[address] [place] [address]Dr. Villa Yanes INFLUENZA A AND B AGon 07-30 INFLUANEGH SEE BELOW Normal [facility] Comment on above: Result Comment: Nega tive for Flu A protein angiten. Infection due to Flu A cannot be ruled out. Flu A angiten in the sample may be below the detection limit of the test. Performed By: #### I NFLUAB ####[facility] Zhfmfehizq8[address] [place], [place] [address]Dr. Villa Yanes INFLUBNEGH SEE BELOW Normal [facility] Comment on above: Result Comment: Nega tive for Flu B protein antigen. Infection due to Flu B cannot be ruled out. Flu B antigen in the sample may be below the detection limit of the test. Performed By: #### I NFLUAB ####[facility] Gsrydzwgab[address] [place], [place] [address]Dr. Villa Yanes INFLUENZA A AG Negative Normal NEGATIVE SEE COMMENT [facility] Comment on above: Performed By: #### I NFLUAB ####[facility] Oszhnaoasp[address] [place], [place] [address]Dr. Villa Yanes INFLUENZA B AG Negative Normal NEGATIVE SEE COMMENT [facility] Comment on above: Performed By: #### I NFLUAB ####[facility] Ezxlcqftol15[address] [place], [place] [address]Dr. Villa Yanes IRONon 07-30-2022 Iron [Mass/Vol] 44.0 ug/dL Critically low 65.0-175.0 [facility] Comment on above: Performed By: #### I JOSE ####[facility] Fuqxaffhlk8[address] [place], [place] [address]Dr. Villa Yanes LIPASEon 07-30-2022 Lipase [Catalytic activity/Vol] 44.0 U/L Critically low 73.0-393.0 [facility] Comment on above: Performed By: #### L IPA, TSH, CANDIE, T7, CMP ####[facility] Mxkawkpsaq7[address] [place], [place] [address]Dr. Villa Yanes PROF 14(COMP METB)on 023 Albumin [Mass/Vol] 3.3 g/dL Critically low 3.4-5.0 [facility] Comment on above: Performed By: #### L IPA, TSH, CANDIE, T7, CMP ####[facility] Yltmqmpyha9097 [place] [address]Dr. Villa Yanes Albumin/Globulin [Mass ratio] 0.9 {ratio} Normal [facility] Comment on above: Performed By: #### L IPA, TSH, CANDIE, T7, CMP ####[facility] Oeuiwotikz6842 [place] [address]Dr. Villa Yanes ALP [Catalytic activity/Vol] 163 U/L Critically high 46-116 [facility] Comment on above: Performed By: #### L IPA, TSH, CANDIE, T7, CMP ####[facility] Rtrnnybjhn3623 [place] [address]Dr. Villa Yanes ALT [Catalytic activity/Vol] 10 U/L Critically low 16-63 [facility] Comment on above: Performed By: #### L IPA, TSH, CANDIE, T7, CMP ####[facility] Uirkazwxno[address] [place], [place] [address]Dr. Villa Yanes Anion gap [Moles/Vol] 13.1 mmol/L Normal [facility] Comment on above: Performed By: #### L IPA, TSH, CANDIE, T7, CMP ####[facility] Zhpabfzsme14[address] [place], [place] [address]Dr. Villa Yanes AST [Catalytic activity/Vol] 12 U/L Critically low 15-37 [facility] Comment on above: Performed By: #### L IPA, TSH, CANDIE, T7, CMP ####[facility] Zuokydbvow[address] [place], [place] [address]Dr. Villa Yanes Bilirubin [Mass/Vol] 0.4 mg/dL Normal 0.2-1.0 [facility] Comment on above: Performed By: #### L IPA, TSH, CANDIE, T7, CMP ####[facility] Qzxlnihunp[address] [place], [place] [address]Dr. Villa Yanes Calcium [Mass/Vol] 9.8 mg/dL Normal 8.5-10.1 [facility] Comment on above: Performed By: #### L IPA, TSH, CANDIE, T7, CMP ####[facility] Asitpffbei80[address] [place], [place] [address]Dr. Villa Yanes Chloride [Moles/Vol] 106 mmol/L Normal 98-107 [facility] Comment on above: Performed By: #### L IPA, TSH, CANDIE, T7, CMP ####[facility] Evhqnfurbv6920 [place] [id number]. Villa Yanes CO2 [Moles/Vol] 27.3 mmol/L Normal 21.0-32.0 [facility] Comment on above: Performed By: #### L IPA, TSH, CANDIE, T7, CMP ####[facility] Tzdricpjxy7842 [place] [id number]. Villa Yanes Creatinine [Mass/Vol] 1.23 mg/dL Normal 0.70-1.30 [facility] Comment on above: Performed By: #### L IPA, TSH, CANDIE, T7, CMP ####[facility] Fxkebbnjyh3026 [place] [address]Dr. Villa Yanes EGFR-AF BELIZEAN >60 Normal >=60 [facility] Comment on above: Performed By: #### L IPA, TSH, CANDIE, T7, CMP ####[facility] Mcfthlfgnq1146 [place] [address]Dr. Villa Yanes EGFR-NON AF BELIZEAN 57 mL/min/1.73m2 Critically low >=60 [facility] Comment on above: Performed By: #### L IPA, TSH, CANDIE, T7, CMP ####[facility] Bpnyctqspa5122 [place] [address]Dr. Villa Yanes Globulin (S) [Mass/Vol] 3.7 g/dL Normal [facility] Comment on above: Performed By: #### L IPA, TSH, CANDIE, T7, CMP ####[facility] Csyojjdgpf6608 [place] [address]Dr. Villa Yanes Glucose [Mass/Vol] 155 mg/dL Critically high 74-106 [facility] Comment on above: Performed By: #### L IPA, TSH, CANDIE, T7, CMP ####[facility] Swqzdjqcko2468 [place] [address]Dr. Villa Yanes Potassium [Moles/Vol] 4.4 mmol/L Normal 3.5-5.1 [facility] Comment on above: Performed By: #### L IPA, TSH, CANDIE, T7, CMP ####[facility] Elsfxrrqjh6818 [place] [address]Dr. Villa Yanes Protein [Mass/Vol] 7.0 g/dL Normal 6.4-8.2 [facility] Comment on above: Performed By: #### L IPA, TSH, CANDIE, T7, CMP ####[facility] Gwhjtaqrif6[address] [place], [place] [address]Dr. Villa Yanes Sodium [Moles/Vol] 142 mmol/L Normal 136-145 [facility] Comment on above: Performed By: #### L IPA, TSH, CANDIE, T7, CMP ####[facility] Niwcubsrgv[address] [place], [place] [address]Dr. Brooklynkaren Joaquín Urea nitrogen [Mass/Vol] 25.0 mg/dL Critically high 7.0-18.0 [facility] Comment on above: Performed By: #### L IPA, TSH, CANDIE, T7, CMP ####[facility] Erebbbagbc9634[address] [place], [place] [address]Dr. Brooklynkaren Joaquín Urea nitrogen/Creatinine [Mass ratio] 20.3 mg/mg Normal [facility] Comment on above: Performed By: #### L IPA, TSH, CANDIE, T7, CMP ####[facility] Vkdehdjvlv69[address] [place], [place] [address]Dr. Brooklynkaren Joaquín TSHon 07-30-2022 TSH 0.259 uIU/mL Critically low 0.358-3.740 [facility] Comment on above: Performed By: #### L IPA, TSH, CANDIE, T7, CMP ####[facility] Fpkzlphwjx[address] [place], [place] [address]Dr. Brooklynkaren Joaquín XR CHEST 2 Von 07-30-2022 XR CHEST 2 V Normal [facility] CBC AUTO DIFFon 07-01-2022 BASO # 0.0 103/ul Normal 0.0-0.1 [facility] Comment on above: Performed By: #### C BC ####[facility] Ghwtyskexx11[address] [place], [place] [address]Dr. Villa Yanes Basophils/100 WBC (Bld) 0.1 % Critically low 0.2-2.0 [facility] Comment on above: Performed By: #### C BC ####[facility] Vskriibjln7712 [place] [address]Dr. Villa Yanes EO # 0.1 103/ul Normal 0.0-0.7 [facility] Comment on above: Performed By: #### C BC ####[facility] Wymweltvvs42[address] [place], [place] [address]Dr. Villa Yanes Eosinophils/100 WBC (Bld) 0.5 % Critically low 0.9-7.0 [facility] Comment on above: Performed By: #### C BC ####[facility] Sdyghyrpvr8[address] [place], [place] [address]Dr. Villa Yanes Erythrocyte distribution width (RBC) [Ratio] 12.7 % Normal 11.0-15.0 [facility] Comment on above: Performed By: #### C BC ####[facility] Dsrjmnswqe37[address] [place], [place] [address]Dr. Villa Yanes Hematocrit (Bld) [Volume fraction] 37.6 % Critically low 42.0-54.0 [facility] Comment on above: Performed By: #### C BC ####[facility] Qdczumxxxp[address] [place], [place] [address]Dr. Villa Yanes Hemoglobin (Bld) [Mass/Vol] 12.2 g/dL Critically low 14.0-18.0 [facility] Comment on above: Performed By: #### C BC ####[facility] Fopxkxfwiv44[address] [place], [place] [address]Dr. Villa Joaquín IG # 0.10 10e3/ul Critically high 0.00-0.03 [facility] Comment on above: Performed By: #### C BC ####[facility] Yrdlmscjlq08[address] [place], [place] [address]Dr. Brooklynkaren Yanes IG % 1.0 % Critically high 0.0-0.5 [facility] Comment on above: Performed By: #### C BC ####[facility] Kixbtebxoi4696 [place] [address]Dr. Villa Joaquín LYMPH # 1.4 103/ul Normal 1.2-3.8 [facility] Comment on above: Performed By: #### C BC ####[facility] Eakqdcjqzm1692 [place] [address]Dr. [place]karen Yanes Lymphocytes/100 WBC (Bld) 13.5 % Critically low 20.5-60.0 [facility] Comment on above: Performed By: #### C BC ####[facility] Hfnjjzrdld0839 [place] [address]Dr. Villa Yanes MANUAL DIFF REQ NO Normal [facility] Comment on above: Performed By: #### C BC ####[facility] Orzfahqizl7591 [place] [address]Dr. Brooklynkaren Yanes MCH (RBC) [Entitic mass] 32.7 pg Normal 25.9-34.0 [facility] Comment on above: Performed By: #### C BC ####[facility] Sqibsevcuw[address] [place], [place] [address]Dr. Brooklynkaren Yanes MCHC (RBC) [Mass/Vol] 32.4 g/dL Normal 29.9-35.2 [facility] Comment on above: Performed By: #### C BC ####[facility] Dcgoanavgq3808 [place] [address]Dr. Villa Yanes MCV (RBC) [Entitic vol] 100.8 fL Critically high 80.0-94.0 [facility] Comment on above: Performed By: #### C BC ####[facility] Ybzkjnuinq6041 [place] [address]Dr. Villa Yanes MONO # 0.8 103/ul Normal 0.3-0.8 [facility] Comment on above: Performed By: #### C BC ####[facility] Isbufmxwuo[address] [place], [place] [address]Dr. Villa Yanes Monocytes/100 WBC (Bld) 7.9 % Normal 1.7-12.0 [facility] Comment on above: Performed By: #### C BC ####[facility] Buuuaubplf8146 [place] [address]Dr. Villa Yanes NEUT # 7.9 103/ul Critically high 1.4-6.5 [facility] Comment on above: Performed By: #### C BC ####[facility] Ammncvotis4306 [place] [address]Dr. Villa Yanes Neutrophils/100 WBC (Bld) 77.0 % Critically high 43.0-75.0 [facility] Comment on above: Performed By: #### C BC ####[facility] Vemhroicpo2892 [place] [address]Dr. Villa Yanes Platelet mean volume (Bld) [Entitic vol] 10.1 fL Normal 9.5-13.5 [facility] Comment on above: Performed By: #### C BC ####[facility] Bkszjcgjxf8185 [place] [address]Dr. Villa Yanes PLT 196 103/ul Normal 150-450 [facility] Comment on above: Performed By: #### C BC ####[facility] Dnitzsfsgq[address] [place], [place] [address]Dr. Villa Yanes RBC 3.73 106/ul Critically low 4.70-6.10 [facility] Comment on above: Performed By: #### C BC ####[facility] Bfseidqkzc[address] [place], [place] [address]Dr. Villa Yanes WBC 10.3 103/ul Normal 4.0-11.0 [facility] Comment on above: Performed By: #### C BC ####[facility] Dyayrifiwc12[address] [place], [place] [address]Dr. Villa Yanes CRPon 07-01-2022 CRP 0.8 mg/dL Normal <=1.0 [facility] Comment on above: Performed By: #### B MP, CRP ####[facility] Yrbgotnutl0310 [place] [address]Dr. Villa Yanes PROF CHEM 8 (BAS METB)on Anion gap [Moles/Vol] 12.1 mmol/L Normal [facility] Comment on above: Performed By: #### B MP, CRP ####[facility] Kokmliwbxw0170 [place] [address]Dr. Villa Yanes Calcium [Mass/Vol] 9.2 mg/dL Normal 8.5-10.1 [facility] Comment on above: Performed By: #### B MP, CRP ####[facility] Lvgcjspbzh2490 [place] [address]Dr. Villa Yanes Chloride [Moles/Vol] 105 mmol/L Normal 98-107 [facility] Comment on above: Performed By: #### B MP, CRP ####[facility] Nvwxqwinpz7934 [place] [address]Dr. Villa Yanes CO2 [Moles/Vol] 26.8 mmol/L Normal 21.0-32.0 [facility] Comment on above: Performed By: #### B MP, CRP ####[facility] Cnuvdrpziw6[address] [place], [place] [address]Dr. Villa Yanes Creatinine [Mass/Vol] 1.11 mg/dL Normal 0.70-1.30 [facility] Comment on above: Performed By: #### B MP, CRP ####[facility] Knykmiwden[address] [place], [place] [address]Dr. Villa Yanes EGFR-AF BELIZEAN >60 Normal >=60 [facility] Comment on above: Performed By: #### B MP, CRP ####[facility] Aoakwshyun[address] [place], [place] [address]Dr. Villa Yanes EGFR-NON AF BELIZEAN >60 Normal >=60 [facility] Comment on above: Performed By: #### B MP, CRP ####[facility] Ahtxslxqie9234[address] [place], [place] [address]Dr. Villa Yanes Glucose [Mass/Vol] 136 mg/dL Critically high 74-106 [facility] Comment on above: Performed By: #### B MP, CRP ####[facility] Gfdnmzhpxf[address] [place], [place] [address]Dr. Villa Yanes Potassium [Moles/Vol] 3.9 mmol/L Normal 3.5-5.1 [facility] Comment on above: Performed By: #### B MP, CRP ####[facility] Odqgqisjnn1425 [place] [address]Dr. Villa Yanes Sodium [Moles/Vol] 140 mmol/L Normal 136-145 [facility] Comment on above: Performed By: #### B MP, CRP ####[facility] Zgtvtxnpvi1723 [place] [address]Dr. Villa Yanes Urea nitrogen [Mass/Vol] 28.0 mg/dL Critically high 7.0-18.0 [facility] Comment on above: Performed By: #### B MP, CRP ####[facility] Jloodgoxtf8942 [place] [address]Dr. Villa Yanes Urea nitrogen/Creatinine [Mass ratio] 25.2 mg/mg Normal [facility] Comment on above: Performed By: #### B MP, CRP ####[facility] Snqcwjshvy4[address] [place], [place] [address]Dr. Villa Yanes SED RATE WESTERGRENon 2022 SED RATE 32 mm/hr Critically high <=20 [facility] Comment on above: Performed By: #### S EDR ####[facility] Nnefsyrrox96[address] [place], [place] [address]Dr. Villa Yanes XR LSPINE 2_3 VIEWSon 2022 XR LSPINE 2_3 VIEWS Normal [facility] CBC AUTO DIFFon 06-29-2022 BASO # 0.0 103/ul Normal 0.0-0.1 [facility] Comment on above: Performed By: #### C BC ####[facility] Xineqqykvz[address] [place], [place] [address]Dr. Villa Yanes Basophils/100 WBC (Bld) 0.1 % Critically low 0.2-2.0 [facility] Comment on above: Performed By: #### C BC ####[facility] Oxevowjkjp[address] [place], [place] [address]Dr. Villa Yanes EO # 0.0 103/ul Normal 0.0-0.7 [facility] Comment on above: Performed By: #### C BC ####[facility] Fyjjfsvrgr[address] [place], [place] [address]Dr. Villa Yanes Eosinophils/100 WBC (Bld) 0.0 % Critically low 0.9-7.0 [facility] Comment on above: Performed By: #### C BC ####[facility] Dyzhncwczh8845 [place] [address]Dr. Villa Yanes Erythrocyte distribution width (RBC) [Ratio] 12.6 % Normal 11.0-15.0 [facility] Comment on above: Performed By: #### C BC ####[facility] Spvubllkiv[address] [place], [place] [address]Dr. Villa Yanes Hematocrit (Bld) [Volume fraction] 31.6 % Critically low 42.0-54.0 [facility] Comment on above: Performed By: #### C BC ####[facility] Ockcgodwxo7[address] [place], [place] [address]Dr. Villa Yanes Hemoglobin (Bld) [Mass/Vol] 10.1 g/dL Critically low 14.0-18.0 [facility] Comment on above: Performed By: #### C BC ####[facility] Lyfqwfzhoq[address] [place], [place] [address]Dr. Villa Yanes IG # 0.10 10e3/ul Critically high 0.00-0.03 [facility] Comment on above: Performed By: #### C BC ####[facility] Qnibmykgif68[address] [place], [place] [address]Dr. Villa Yanes IG % 0.9 % Critically high 0.0-0.5 [facility] Comment on above: Performed By: #### C BC ####[facility] Nujnppzqje38[address] [place], [place] [address]Dr. Villa Yanes LYMPH # 0.3 103/ul Critically low 1.2-3.8 [facility] Comment on above: Performed By: #### C BC ####[facility] Satoybyarl6345[address] [place], [place] [address]Dr. Villa Yanes Lymphocytes/100 WBC (Bld) 2.5 % Critically low 20.5-60.0 [facility] Comment on above: Performed By: #### C BC ####[facility] Nzfmznhibw7[address] [place] [address]Dr. Villa Joaquín MANUAL DIFF REQ NO Normal [facility] Comment on above: Performed By: #### C BC ####[facility] Okyeoaqtwq3254 [place] [address]Dr. Villa Yanes MCH (RBC) [Entitic mass] 32.1 pg Normal 25.9-34.0 [facility] Comment on above: Performed By: #### C BC ####[facility] Kmesxxxoht6042 [place] [address]Dr. Villa Joaquín MCHC (RBC) [Mass/Vol] 32.0 g/dL Normal 29.9-35.2 [facility] Comment on above: Performed By: #### C BC ####[facility] Rpsrrodsgj7897 [place] [address]Dr. Brooklynkaren Yanes MCV (RBC) [Entitic vol] 100.3 fL Critically high 80.0-94.0 [facility] Comment on above: Performed By: #### C BC ####[facility] Tqcyrbufed58[address] [place], [place] [address]Dr. Villa Yanes MONO # 0.2 103/ul Critically low 0.3-0.8 [facility] Comment on above: Performed By: #### C BC ####[facility] Zuynnrsqyc2[address] [place], [place] [address]Dr. Villa Yanes Monocytes/100 WBC (Bld) 1.8 % Normal 1.7-12.0 [facility] Comment on above: Performed By: #### C BC ####[facility] Ubpowlzria0760 [place] [address]Dr. Villa Yanes NEUT # 10.8 103/ul Critically high 1.4-6.5 [facility] Comment on above: Performed By: #### C BC ####[facility] Bcxcuhpzpr08[address] [place], [place] [address]Dr. Villa Yanes Neutrophils/100 WBC (Bld) 94.7 % Critically high 43.0-75.0 [facility] Comment on above: Performed By: #### C BC ####[facility] Knsguubbst7585 [place] [address]Dr. Villa Yanes Platelet mean volume (Bld) [Entitic vol] 10.1 fL Normal 9.5-13.5 [facility] Comment on above: Performed By: #### C BC ####[facility] Jqhbpqcoqr1553 [place] [address]Dr. Brooklynkaren Joaquín PLT 200 103/ul Normal 150-450 [facility] Comment on above: Performed By: #### C BC ####[facility] Squjvaabfz4060 [place] [address]Dr. Vilal Yanes RBC 3.15 106/ul Critically low 4.70-6.10 [facility] Comment on above: Performed By: #### C BC ####[facility] Ckjpgkdsal7952 [place] [address]Dr. Villa Yanes WBC 11.4 103/ul Critically high 4.0-11.0 [facility] Comment on above: Performed By: #### C BC ####[facility] Lyzvffapnu14[address] [place], [place] [address]Dr. Villa Yanes POINT OF CARE GLUCOSEon Glucose [Mass/Vol] 225 mg/dL Critically high 74-106 [facility] Comment on above: Performed By: #### P OCGLUC ####[facility] Zirbdjgqoy8403 [place] [address]Dr. Villa Yanes PROF CHEM 8 (BAS METB)on Anion gap [Moles/Vol] 15.6 mmol/L Normal [facility] Comment on above: Performed By: #### B MP ####[facility] Nvynguznes8427 [place] [address]Dr. Villa Yanes Calcium [Mass/Vol] 8.6 mg/dL Normal 8.5-10.1 [facility] Comment on above: Performed By: #### B MP ####[facility] Ydtjvylsfo4530 [place] [address]Dr. Villa Yanes Chloride [Moles/Vol] 106 mmol/L Normal 98-107 [facility] Comment on above: Performed By: #### B MP ####[facility] Ggbnqltuqi5787 [place] [address]Dr. Villa Yanes CO2 [Moles/Vol] 22.6 mmol/L Normal 21.0-32.0 [facility] Comment on above: Performed By: #### B MP ####[facility] Vwdndyqnuq9688 [place] [address]Dr. Villa Yanes Creatinine [Mass/Vol] 1.39 mg/dL Critically high 0.70-1.30 [facility] Comment on above: Performed By: #### B MP ####[facility] Bpqqyekuue2444 [place] [address]Dr. Villa Yanes EGFR-AF BELIZEAN 60 mL/min/1.73m2 Normal >=60 [facility] Comment on above: Performed By: #### B MP ####[facility] Harhjwoccs[address] [place], [place] [address]Dr. Villa Joaquín EGFR-NON AF BELIZEAN 49 mL/min/1.73m2 Critically low >=60 [facility] Comment on above: Performed By: #### B MP ####[facility] Dukzweetoy5684[address] [place], [place] [address]Dr. Villa Yanes Glucose [Mass/Vol] 229 mg/dL Critically high 74-106 [facility] Comment on above: Performed By: #### B MP ####[facility] Mvrvfhqmvr5[address] [place], [place] [address]Dr. Villa Yanes Potassium [Moles/Vol] 4.2 mmol/L Normal 3.5-5.1 [facility] Comment on above: Performed By: #### B MP ####[facility] Csnbcftril163[address] [place], [place] [address]Dr. Villa Yanes Sodium [Moles/Vol] 140 mmol/L Normal 136-145 [facility] Comment on above: Performed By: #### B MP ####[facility] Irnyzdzewm8[address] [place], [place] [address]Dr. Villa Yanes Urea nitrogen [Mass/Vol] 47.0 mg/dL Critically high 7.0-18.0 [facility] Comment on above: Performed By: #### B MP ####[facility] Rsfpkgmacc1545 [place] [id number]. Villa Yanes Urea nitrogen/Creatinine [Mass ratio] 33.8 mg/mg Normal [facility] Comment on above: Performed By: #### B MP ####[facility] Nknveadudo1695 [place] [id number]. Villa Joaquín CBC AUTO DIFFon 06-28-2022 BASO # 0.0 103/ul Normal 0.0-0.1 [facility] Comment on above: Performed By: #### C BC ####[facility] Tudsqoyprk[address] [place], [place] [id number]. Brooklynkaren Yanes Basophils/100 WBC (Bld) 0.1 % Critically low 0.2-2.0 [facility] Comment on above: Performed By: #### C BC ####[facility] Zetdxecjwv[address] [place], [place] [address]Dr. Villa Yanes EO # 0.0 103/ul Normal 0.0-0.7 [facility] Comment on above: Performed By: #### C BC ####[facility] Yjebmzsfea8[address] [place], [place] [address]Dr. Villa Joaquín Eosinophils/100 WBC (Bld) 0.1 % Critically low 0.9-7.0 [facility] Comment on above: Performed By: #### C BC ####[facility] Ljkctqgmtx26[address] [place], [place] [address]Dr. Villa Joaquín Erythrocyte distribution width (RBC) [Ratio] 12.6 % Normal 11.0-15.0 [facility] Comment on above: Performed By: #### C BC ####[facility] Hlaibpqvgs28[address] [place], [place] [address]Dr. Brooklynkaren Yanes Hematocrit (Bld) [Volume fraction] 33.4 % Critically low 42.0-54.0 [facility] Comment on above: Performed By: #### C BC ####[facility] Zwvgupsrib5[address] [place], [place] [id number]. Brooklynkaren Yanes Hemoglobin (Bld) [Mass/Vol] 10.5 g/dL Critically low 14.0-18.0 [facility] Comment on above: Performed By: #### C BC ####[facility] Wbpounnpmn0131 [place] [address]Dr. Villa Yanes IG # 0.12 10e3/ul Critically high 0.00-0.03 [facility] Comment on above: Performed By: #### C BC ####[facility] Xhgtlmrgsi5703 [place] [address]Dr. Villa Yanes IG % 0.9 % Critically high 0.0-0.5 [facility] Comment on above: Performed By: #### C BC ####[facility] Euseosvzwd[address] [place], [place] [address]DrBrenden Yanes LYMPH # 0.5 103/ul Critically low 1.2-3.8 [facility] Comment on above: Performed By: #### C BC ####[facility] Bijcvsphxp0794 [place] [address]DrBrenden Yanes Lymphocytes/100 WBC (Bld) 3.6 % Critically low 20.5-60.0 [facility] Comment on above: Performed By: #### C BC ####[facility] Aikjksyfso5261 [place] [address]DrBrenden Yanes MANUAL DIFF REQ NO Normal [facility] Comment on above: Performed By: #### C BC ####[facility] Ievgomjskt4318 [place] [address]DrBrenden Yanes MCH (RBC) [Entitic mass] 31.4 pg Normal 25.9-34.0 [facility] Comment on above: Performed By: #### C BC ####[facility] Jpaqklmnng1438 [place] [address]DrBrenden Yanes MCHC (RBC) [Mass/Vol] 31.4 g/dL Normal 29.9-35.2 [facility] Comment on above: Performed By: #### C BC ####[facility] Fbijiikgnk0604 [place] [address]DrBrenden Yanes MCV (RBC) [Entitic vol] 100.0 fL Critically high 80.0-94.0 [facility] Comment on above: Performed By: #### C BC ####[facility] Zwrikppjpw5418 [place] [id number]. Villa Yanes MONO # 0.2 103/ul Critically low 0.3-0.8 [facility] Comment on above: Performed By: #### C BC ####[facility] Wbgoilsgpt3555 [place] [phone]. Villa Joaquín Monocytes/100 WBC (Bld) 1.6 % Critically low 1.7-12.0 [facility] Comment on above: Performed By: #### C BC ####[facility] Sjvsocpneq4137 [place] [phone]. Villa Yanes NEUT # 12.5 103/ul Critically high 1.4-6.5 [facility] Comment on above: Performed By: #### C BC ####[facility] Zxdgckkggk6299 [place] [address]Dr. Villa Joaquín Neutrophils/100 WBC (Bld) 93.7 % Critically high 43.0-75.0 [facility] Comment on above: Performed By: #### C BC ####[facility] Cejhljbuwn4355 [place] [id number]. Villa Yanes Platelet mean volume (Bld) [Entitic vol] 10.0 fL Normal 9.5-13.5 [facility] Comment on above: Performed By: #### C BC ####[facility] Mbgazkhkew1034 [place] [id number]. Villa Yanes PLT 242 103/ul Normal 150-450 [facility] Comment on above: Performed By: #### C BC ####[facility] Crvaqadijo3399 [place] [phone]. Brooklynkaren Joaquín RBC 3.34 106/ul Critically low 4.70-6.10 [facility] Comment on above: Performed By: #### C BC ####[facility] Bivofcrzrr7868 [place] [id number]. Brooklynkaren Joaquín WBC 13.4 103/ul Critically high 4.0-11.0 [facility] Comment on above: Performed By: #### C BC ####[facility] Qbdahbcbjl8704 [place] [address]Dr. Villa Yanes POINT OF CARE GLUCOSEon Glucose [Mass/Vol] 238 mg/dL Critically high 74-106 [facility] Comment on above: Performed By: #### P OCGLUC ####[facility] Wreiqgpdow0699 [place] [address]Dr. Villa Yanes Glucose [Mass/Vol] 202 mg/dL Critically high 74-106 [facility] Comment on above: Performed By: #### P OCGLUC ####[facility] Abzkaoczfa[address] [place], [place] [address]Dr. Villa Yanes Glucose [Mass/Vol] 168 mg/dL Critically high 74-106 [facility] Comment on above: Performed By: #### P OCGLUC ####[facility] Uwrkznybcg6913[address] [place], [place] [address]Dr. Villa Yanes PROF CHEM 8 (BAS METB)on Anion gap [Moles/Vol] 11.5 mmol/L Normal [facility] Comment on above: Performed By: #### B MP ####[facility] Siuhopnpbz004[address] [place], [place] [address]Dr. Villa Yanes Calcium [Mass/Vol] 8.9 mg/dL Normal 8.5-10.1 [facility] Comment on above: Performed By: #### B MP ####[facility] Wjjfxlbmxl8124[address] [place], [place] [address]Dr. Villa Yanes Chloride [Moles/Vol] 106 mmol/L Normal 98-107 [facility] Comment on above: Performed By: #### B MP ####[facility] Tzszlxcfbz15[address] [place], [place] [address]Dr. Villa Yanes CO2 [Moles/Vol] 25.3 mmol/L Normal 21.0-32.0 [facility] Comment on above: Performed By: #### B MP ####[facility] Hwtlkuhliv69[address] [place], [place] [address]Dr. Villa Yanes Creatinine [Mass/Vol] 1.39 mg/dL Critically high 0.70-1.30 [facility] Comment on above: Performed By: #### B MP ####[facility] Ghnstaogvp8970 [place] [address]Dr. Villa Yanes EGFR-AF BELIZEAN 60 mL/min/1.73m2 Normal >=60 [facility] Comment on above: Performed By: #### B MP ####[facility] B[address]emnqvvlx06[address] [place], [place] [address]Dr. Villa Yanes EGFR-NON AF BELIZEAN 49 mL/min/1.73m2 Critically low >=60 [facility] Comment on above: Performed By: #### B MP ####[facility] Xvqpvxztre4366[address] [place], [place] [address]Dr. Villa Yanes Glucose [Mass/Vol] 191 mg/dL Critically high 74-106 [facility] Comment on above: Performed By: #### B MP ####[facility] Kknsshtrje1782[address] [place], [place] [address]Dr. Villa Yanes Potassium [Moles/Vol] 4.8 mmol/L Normal 3.5-5.1 [facility] Comment on above: Performed By: #### B MP ####[facility] Cmchswxaid[address] [place], [place] [address]Dr. Villa Ynaes Sodium [Moles/Vol] 138 mmol/L Normal 136-145 [facility] Comment on above: Performed By: #### B MP ####[facility] Njwkyqutej295[address] [place], [place] [address]Dr. Villa Yanes Urea nitrogen [Mass/Vol] 48.0 mg/dL Critically high 7.0-18.0 [facility] Comment on above: Performed By: #### B MP ####[facility] Jugzmybekl2136[address] [place], [place] [address]Dr. Villa Yanes Urea nitrogen/Creatinine [Mass ratio] 34.5 mg/mg Normal [facility] Comment on above: Performed By: #### B MP ####[facility] Qqemfvznoy7548[address] [place], [place] [address]Dr. Villa Yanes XR CHEST 2 Von 06-28-2022 XR CHEST 2 V Normal [facility] CBC AUTO DIFFon 06-27-2022 BASO # 0.0 103/ul Normal 0.0-0.1 [facility] Comment on above: Performed By: #### C BC ####[facility] Wcsfxhinge9218 [place] [id number]. Villa Yanes Basophils/100 WBC (Bld) 0.2 % Normal 0.2-2.0 [facility] Comment on above: Performed By: #### C BC ####[facility] Jobeozfwox639[address] [place], [place] [address]Dr. Villa Yanes EO # 0.0 103/ul Normal 0.0-0.7 [facility] Comment on above: Performed By: #### C BC ####[facility] Bhvwdwlwlu7546[address] [place], [place] [address]Dr. Villa Yanes Eosinophils/100 WBC (Bld) 0.0 % Critically low 0.9-7.0 [facility] Comment on above: Performed By: #### C BC ####[facility] Wztsbwxxhw[address] [place], [place] [address]Dr. Villa Yanes Erythrocyte distribution width (RBC) [Ratio] 12.6 % Normal 11.0-15.0 [facility] Comment on above: Performed By: #### C BC ####[facility] Kxoitnctfu752[address] [place], [place] [address]Dr. Villa Yanes Hematocrit (Bld) [Volume fraction] 33.9 % Critically low 42.0-54.0 [facility] Comment on above: Performed By: #### C BC ####[facility] Xphfuzfpmt[address] [place], [place] [address]Dr. Villa Yanes Hemoglobin (Bld) [Mass/Vol] 10.7 g/dL Critically low 14.0-18.0 [facility] Comment on above: Performed By: #### C BC ####[facility] Lumrckhmey[address] [place], [place] [address]Dr. Villa Yanes IG # 0.08 10e3/ul Critically high 0.00-0.03 [facility] Comment on above: Performed By: #### C BC ####[facility] Yppojgnqlj3200 [place] [address]Dr. Brooklynkaren Yanes IG % 1.3 % Critically high 0.0-0.5 [facility] Comment on above: Performed By: #### C BC ####[facility] Qfsidoowhr1221 [place] [address]Dr. Villa Yanes LYMPH # 0.3 103/ul Critically low 1.2-3.8 [facility] Comment on above: Performed By: #### C BC ####[facility] Fnvjslxwml8160 [place] [address]Dr. Brooklynkaren Yanes Lymphocytes/100 WBC (Bld) 5.1 % Critically low 20.5-60.0 [facility] Comment on above: Performed By: #### C BC ####[facility] Nupgbjlwka45[address] [place], [place] [address]DrBrenden Yanes MANUAL DIFF REQ NO Normal [facility] Comment on above: Performed By: #### C BC ####[facility] Jujkbsrtrq6943[address] [place], [place] [address]Dr. Brooklynkaren Yanes MCH (RBC) [Entitic mass] 31.4 pg Normal 25.9-34.0 [facility] Comment on above: Performed By: #### C BC ####[facility] Fdqhrxcuqt0072 [place] [address]Dr. Brooklynkaren Yanes MCHC (RBC) [Mass/Vol] 31.6 g/dL Normal 29.9-35.2 [facility] Comment on above: Performed By: #### C BC ####[facility] Kwiklukhhx7[address] [place], [place] [address]Dr. Brooklynkaren Yanes MCV (RBC) [Entitic vol] 99.4 fL Critically high 80.0-94.0 [facility] Comment on above: Performed By: #### C BC ####[facility] Ipjddeoogu[address] [place], [place] [address]DrBrenden Yanes MONO # 0.0 103/ul Critically low 0.3-0.8 [facility] Comment on above: Performed By: #### C BC ####[facility] Dkmfdanudt8294 [place] [id number]. Villa Yanes Monocytes/100 WBC (Bld) 0.7 % Critically low 1.7-12.0 [facility] Comment on above: Performed By: #### C BC ####[facility] Kzmormywhg3210 [place] [id number]. Villa Yanes NEUT # 5.6 103/ul Normal 1.4-6.5 [facility] Comment on above: Performed By: #### C BC ####[facility] Qsifcedues2268 [place] [id number]. Villa Yanes Neutrophils/100 WBC (Bld) 92.7 % Critically high 43.0-75.0 [facility] Comment on above: Performed By: #### C BC ####[facility] Obplspheqj4491 [place] [address]Dr. Villa Yanes Platelet mean volume (Bld) [Entitic vol] 9.7 fL Normal 9.5-13.5 [facility] Comment on above: Performed By: #### C BC ####[facility] Klcdrrvpdn1270 [place] [id number]. Villa Yanes PLT 221 103/ul Normal 150-450 [facility] Comment on above: Performed By: #### C BC ####[facility] Mhusnpalzg1107 [place] [id number]. Villa Yanes RBC 3.41 106/ul Critically low 4.70-6.10 [facility] Comment on above: Performed By: #### C BC ####[facility] Cvhlvlbvbb8894 [place] [id number]. Villa Yanes WBC 6.1 103/ul Normal 4.0-11.0 [facility] Comment on above: Performed By: #### C BC ####[facility] Cktmogsous8641 [place] [id number]. Villa Yanes POINT OF CARE GLUCOSEon 02-0 Glucose [Mass/Vol] 236 mg/dL Critically high 74-106 [facility] Comment on above: Performed By: #### P OCGLUC ####[facility] Fbgjhpumrt8041 [place] [id number]. Brooklynkaren Joaquín Glucose [Mass/Vol] 156 mg/dL Critically high 74-106 [facility] Comment on above: Performed By: #### P OCGLUC ####[facility] Ocspijfjuk7743 [place] [address]Dr. Villa Yanes Glucose [Mass/Vol] 229 mg/dL Critically high 74-106 [facility] Comment on above: Performed By: #### P OCGLUC ####[facility] Xdhinzjjii0009 [place] [address]Dr. Villa Yanes PROF CHEM 8 (BAS METB)on Anion gap [Moles/Vol] 12.7 mmol/L Normal [facility] Comment on above: Performed By: #### B MP ####[facility] Gemnpmpmxl[address] [place], [place] [address]Dr. Villa Yanes Calcium [Mass/Vol] 8.4 mg/dL Critically low 8.5-10.1 [facility] Comment on above: Performed By: #### B MP ####[facility] Dzkpkwkigs66[address] [place], [place] [address]Dr. Villa Yanes Chloride [Moles/Vol] 103 mmol/L Normal 98-107 [facility] Comment on above: Performed By: #### B MP ####[facility] Tkcsflfxlo4[address] [place], [place] [address]Dr. Villa Yanes CO2 [Moles/Vol] 24.1 mmol/L Normal 21.0-32.0 [facility] Comment on above: Performed By: #### B MP ####[facility] Spfianeqsb913[address] [place], [place] [address]Dr. Villa Yanes Creatinine [Mass/Vol] 1.34 mg/dL Critically high 0.70-1.30 [facility] Comment on above: Performed By: #### B MP ####[facility] Zmoykekvaq05[address] [place], [place] [address]Dr. Villa Yanes EGFR-AF BELIZEAN >60 Normal >=60 [facility] Comment on above: Performed By: #### B MP ####[facility] Kutjwrhity7421 [place] [id number]. Villa Yanes EGFR-NON AF BELIZEAN 51 mL/min/1.73m2 Critically low >=60 [facility] Comment on above: Performed By: #### B MP ####[facility] Elgewbeura2947 [place] [id number]. Villa Yanes Glucose [Mass/Vol] 249 mg/dL Critically high 74-106 [facility] Comment on above: Performed By: #### B MP ####[facility] Bdmriezncf7969 [place] [address]Dr. Villa Yanes Potassium [Moles/Vol] 4.8 mmol/L Normal 3.5-5.1 [facility] Comment on above: Performed By: #### B MP ####[facility] Ftwayhxylq8144 [place] [address]Dr. Villa Yanes Sodium [Moles/Vol] 135 mmol/L Critically low 136-145 [facility] Comment on above: Performed By: #### B MP ####[facility] Jidsrjmxah9[address] [place], [place] [address]Dr. Villa Yanes Urea nitrogen [Mass/Vol] 37.0 mg/dL Critically high 7.0-18.0 [facility] Comment on above: Performed By: #### B MP ####[facility] Shjzmnkltu9299 [place] [address]Dr. Villa Yanes Urea nitrogen/Creatinine [Mass ratio] 27.6 mg/mg Normal [facility] Comment on above: Performed By: #### B MP ####[facility] Phgothdspt8957 [place] [id number]. Villa Yanes T3, TOTAL (TRIIODOTHYRONINE) on 06-27-2022 T3, TOTAL 70 ng/dL Critically low 71-180 [facility] Comment on above: Performed By: #### T 3TOTAL ####[facility] Scnyvbfaum[address] [place] [address]Dr. Villa Yanes CBC AUTO DIFFon 06-26-2022 BASO # 0.0 103/ul Normal 0.0-0.1 [facility] Comment on above: Performed By: #### C BC ####[facility] Vgtnobjhov[address] [place], [place] [address]Dr. Villa Joaquín Basophils/100 WBC (Bld) 0.3 % Normal 0.2-2.0 [facility] Comment on above: Performed By: #### C BC ####[facility] Hiuujkvtbs98[address] [place], [place] [address]Dr. Villa Yanes EO # 0.1 103/ul Normal 0.0-0.7 [facility] Comment on above: Performed By: #### C BC ####[facility] Uwehfuwjiq62[address] [place], [place] [address]Dr. Villa Yanes Eosinophils/100 WBC (Bld) 0.4 % Critically low 0.9-7.0 [facility] Comment on above: Performed By: #### C BC ####[facility] Szxrhbktxi[address] [place], [place] [address]Dr. Villa Yanes Erythrocyte distribution width (RBC) [Ratio] 12.3 % Normal 11.0-15.0 [facility] Comment on above: Performed By: #### C BC ####[facility] Rfitzktbge0[address] [place], [place] [address]Dr. Villa Yanes Hematocrit (Bld) [Volume fraction] 34.6 % Critically low 42.0-54.0 [facility] Comment on above: Performed By: #### C BC ####[facility] Uppuukapuv7[address] [place], [place] [address]Dr. Villa Yanes Hemoglobin (Bld) [Mass/Vol] 11.6 g/dL Critically low 14.0-18.0 [facility] Comment on above: Performed By: #### C BC ####[facility] Sfbzkwtnjs8[address] [place], [place] [address]Dr. Villa Yanes IG # 0.13 10e3/ul Critically high 0.00-0.03 [facility] Comment on above: Performed By: #### C BC ####[facility] Lxwbcxtqke64[address] [place] [id number]. Villa Yanes IG % 1.0 % Critically high 0.0-0.5 [facility] Comment on above: Performed By: #### C BC ####[facility] Shtbszmzek[address] [place] [address]Dr. Villa Joaquín LYMPH # 1.6 103/ul Normal 1.2-3.8 [facility] Comment on above: Performed By: #### C BC ####[facility] Rzhypuxwob4765 [place] [address]Dr. Villa Joaquín Lymphocytes/100 WBC (Bld) 11.9 % Critically low 20.5-60.0 [facility] Comment on above: Performed By: #### C BC ####[facility] Kvsbmqnfqs37[address] [place] [address]Dr. [place]karen Yanes MANUAL DIFF REQ NO Normal [facility] Comment on above: Performed By: #### C BC ####[facility] Zqtxjiagmx8919 [place] [address]Dr. Villa Joaquín MCH (RBC) [Entitic mass] 32.3 pg Normal 25.9-34.0 [facility] Comment on above: Performed By: #### C BC ####[facility] Rbcnoojuyf39[address] [place], [place] [address]Dr. Villa Yanes MCHC (RBC) [Mass/Vol] 33.5 g/dL Normal 29.9-35.2 [facility] Comment on above: Performed By: #### C BC ####[facility] Yvrakpqrtj[address] [place] [address]Dr. Villa Joaquín MCV (RBC) [Entitic vol] 96.4 fL Critically high 80.0-94.0 [facility] Comment on above: Performed By: #### C BC ####[facility] Hdojzhndwl12[address] [place], [place] [address]Dr. Villa Joaquín MONO # 0.7 103/ul Normal 0.3-0.8 [facility] Comment on above: Performed By: #### C BC ####[facility] Zhqpuzegdh89[address] [place], [place] [address]Dr. Villa Yanes Monocytes/100 WBC (Bld) 5.6 % Normal 1.7-12.0 [facility] Comment on above: Performed By: #### C BC ####[facility] Jnrzrputdd3968 [place] [address]Dr. Villa Yanes NEUT # 10.5 103/ul Critically high 1.4-6.5 [facility] Comment on above: Performed By: #### C BC ####[facility] Tgspofwrys0922 [place] [address]Dr. Villa Yanes Neutrophils/100 WBC (Bld) 80.8 % Critically high 43.0-75.0 [facility] Comment on above: Performed By: #### C BC ####[facility] Umijletfvy9345 [place] [address]Dr. Villa Yanes Platelet mean volume (Bld) [Entitic vol] 9.1 fL Critically low 9.5-13.5 [facility] Comment on above: Performed By: #### C BC ####[facility] Yuvfkzegyf4[address] [place] [address]Dr. Villa Yanes PLT 266 103/ul Normal 150-450 [facility] Comment on above: Performed By: #### C BC ####[facility] Zqztsspnqn4879 [place] [address]Dr. Villa Yanes RBC 3.59 106/ul Critically low 4.70-6.10 [facility] Comment on above: Performed By: #### C BC ####[facility] Tofdkmacwb20[address] [place] [id number]. Villa Yanes WBC 13.1 103/ul Critically high 4.0-11.0 [facility] Comment on above: Performed By: #### C BC ####[facility] Jbtuuwgefa6415 [place] [id number]. Villa Yanes CULTURE URINEon 06-26-2022 CULTURE URINE Culture Observations : LIGHT GROWTH OF MIXED SKIN ARACELI. NO POTENTIAL PATHOGENS SEEN. Normal [facility] Comment on above: Performed By: #### U RCX ####[facility] Axffoxeupo8[address] [place] [address]Dr. Villa Yanes LACTATE/LACTIC ACIDon 2022 Lactate [Moles/Vol] 1.0 mmol/L Normal 0.4-1.9 [facility] Comment on above: Performed By: #### L ACT ####[facility] Bwggfqjjoj[address] [place], [place] [address]Dr. Villa Yanes POINT OF CARE GLUCOSEon Glucose [Mass/Vol] 242 mg/dL Critically high 74-106 [facility] Comment on above: Performed By: #### P OCGLUC ####[facility] Vxdqeqbupj[address] [place], [place] [address]Dr. Villa Yanes Glucose [Mass/Vol] 140 mg/dL Critically high 74-106 [facility] Comment on above: Performed By: #### P OCGLUC ####[facility] Nfjgxsdria34[address] [place], [place] [address]Dr. Villa Yanes PROF 14(COMP METB)on 023 Albumin [Mass/Vol] 3.0 g/dL Critically low 3.4-5.0 [facility] Comment on above: Performed By: #### C MP, T4, TSH ####[facility] Cuctqkwetd40[address] [place], [place] [address]Dr. Villa Yanes Albumin/Globulin [Mass ratio] 0.9 {ratio} Normal [facility] Comment on above: Performed By: #### C MP, T4, TSH ####[facility] Muomalnnrs7[address] [place], [place] [address]Dr. Villa Yanes ALP [Catalytic activity/Vol] 175 U/L Critically high 46-116 [facility] Comment on above: Performed By: #### C MP, T4, TSH ####[facility] Goucniyutq[address] [place], [place] [address]Dr. Villa Yanes ALT [Catalytic activity/Vol] 12 U/L Critically low 16-63 [facility] Comment on above: Performed By: #### C MP, T4, TSH ####[facility] Qqwultaskv74[address] [place], [place] [address]Dr. Villa Yanes Anion gap [Moles/Vol] 11.1 mmol/L Normal [facility] Comment on above: Performed By: #### C MP, T4, TSH ####[facility] Qxldsftfip264[address] [place] [address]Dr. Villa Yanes AST [Catalytic activity/Vol] 12 U/L Critically low 15-37 [facility] Comment on above: Performed By: #### C MP, T4, TSH ####[facility] Onmgpaandh4254 [place] [address]Dr. Villa Yanes Bilirubin [Mass/Vol] 0.5 mg/dL Normal 0.2-1.0 [facility] Comment on above: Performed By: #### C MP, T4, TSH ####[facility] Kzolefsuti8[address] [place] [address]Dr. Villa Yanes Calcium [Mass/Vol] 9.0 mg/dL Normal 8.5-10.1 [facility] Comment on above: Performed By: #### C MP, T4, TSH ####[facility] Vxiorfykwj4766 [place] [address]Dr. Villa Yanes Chloride [Moles/Vol] 104 mmol/L Normal 98-107 [facility] Comment on above: Performed By: #### C MP, T4, TSH ####[facility] Nmzckxfcio0686 [place] [address]Dr. iVlla Yanes CO2 [Moles/Vol] 28.2 mmol/L Normal 21.0-32.0 [facility] Comment on above: Performed By: #### C MP, T4, TSH ####[facility] Gfcvjhwipc7024 [place] [address]Dr. Villa Yanes Creatinine [Mass/Vol] 1.23 mg/dL Normal 0.70-1.30 [facility] Comment on above: Performed By: #### C MP, T4, TSH ####[facility] Tqypgatutn6[address] [place] [address]Dr. Villa Yanes EGFR-AF BELIZEAN >60 Normal >=60 [facility] Comment on above: Performed By: #### C MP, T4, TSH ####[facility] Rjyuatbrfz28[address] [place] [id number]. Villa Ynaes EGFR-NON AF BELIZEAN 57 mL/min/1.73m2 Critically low >=60 [facility] Comment on above: Performed By: #### C MP, T4, TSH ####[facility] Qxovrstoth9802 [place] [id number]. Villa Yanes Globulin (S) [Mass/Vol] 3.3 g/dL Normal [facility] Comment on above: Performed By: #### C MP, T4, TSH ####[facility] Gpkxdzdvwk5503 [place] [address]Dr. Villa Yanes Glucose [Mass/Vol] 122 mg/dL Critically high 74-106 [facility] Comment on above: Performed By: #### C MP, T4, TSH ####[facility] Ctpsiwvhta1884 [place] [address]Dr. Villa Yanes Potassium [Moles/Vol] 4.3 mmol/L Normal 3.5-5.1 [facility] Comment on above: Performed By: #### C MP, T4, TSH ####[facility] Ambjbjiwmv7775 [place] [address]Dr. Villa Yanes Protein [Mass/Vol] 6.3 g/dL Critically low 6.4-8.2 [facility] Comment on above: Performed By: #### C MP, T4, TSH ####[facility] Fmfyutwgxn4578 [place] [address]Dr. Villa Yanes Sodium [Moles/Vol] 139 mmol/L Normal 136-145 [facility] Comment on above: Performed By: #### C MP, T4, TSH ####[facility] Zwkhhxwiap4182 [place] [address]Dr. Villa Yanes Urea nitrogen [Mass/Vol] 29.0 mg/dL Critically high 7.0-18.0 [facility] Comment on above: Performed By: #### C MP, T4, TSH ####[facility] Extmscqdxl5064 [place] [address]Dr. Villa Yanes Urea nitrogen/Creatinine [Mass ratio] 23.6 mg/mg Normal [facility] Comment on above: Performed By: #### C MP, T4, TSH ####[facility] Futbeztrxz8370 [place] [address]Dr. Villa Yanes T4on 06-26-2022 T4 [Mass/Vol] 5.80 ug/dL Normal 4.50-12.10 [facility] Comment on above: Performed By: #### C MP, T4, TSH ####[facility] Cetwlkdrjo97[address] [place], [place] [address]Dr. Villa Yanes TSHon 06-26-2022 TSH 0.281 uIU/mL Critically low 0.358-3.740 [facility] Comment on above: Performed By: #### C MP, T4, TSH ####[facility] Pmuaxurndw7158 [place] [address]Dr. Villa Yanes UA RANDOM W/MICROSCOPICon BACTERIA TRACE Abnormal NONE SEEN [facility] Comment on above: Performed By: #### U AMIC ####[facility] Crzeebvoks[address] [place], [place] [address]Dr. Villa Yanes Bilirubin Ql (U) Negative Normal NEGATIVE [facility] Comment on above: Performed By: #### U AMIC ####[facility] Drgxvybtrj6[address] [place], [place] [address]Dr. Villa Yanes CAST NONE SEEN Normal NONE SEEN [facility] Comment on above: Performed By: #### U AMIC ####[facility] Dadehofydk2[address] [place], [place] [address]Dr. Villa Yanes Clarity (U) CLEAR Normal CLEAR [facility] Comment on above: Performed By: #### U AMIC ####[facility] Tclhlhybdz7[address] [place], [place] [address]Dr. Villa Yanes Color (U) YELLOW Normal YELLOW [facility] Comment on above: Performed By: #### U AMIC ####[facility] Xdzljhjdva65[address] [place], [place] [address]Dr. Villa Yanes Crystals LM Nom (Urine sed) NONE SEEN Normal NONE SEEN [facility] Comment on above: Performed By: #### U AMIC ####[facility] Xzhawvgdzq8821 [place] [address]Dr. Villa Yanes Epithelial cells LM Ql (Urine sed) RARE Normal NONE SEEN /RARE [facility] Comment on above: Performed By: #### U AMIC ####[facility] Fhmjhpvfki4705 [place] [address]Dr. Villa Yanes Glucose Ql (U) Negative Normal NEGATIVE [facility] Comment on above: Performed By: #### U AMIC ####[facility] Vkhmewunsi4793 [place] [address]Dr. Villa Yanes Hemoglobin Ql (U) Negative Normal NEGATIVE [facility] Comment on above: Performed By: #### U AMIC ####[facility] Lyzervhmyu43[address] [place], [place] [address]Dr. Villa Yanes Ketones Ql (U) Negative Normal NEGATIVE [facility] Comment on above: Performed By: #### U AMIC ####[facility] Hwfdyxgeic34[address] [place], [place] [address]Dr. Villa Yanes LEUKOCYTES Negative Normal NEGATIVE [facility] Comment on above: Performed By: #### U AMIC ####[facility] Cevjiejtng[address] [place], [place] [address]Dr. Villa Yanes MUCOUS NONE SEEN Normal NONE SEEN [facility] Comment on above: Performed By: #### U AMIC ####[facility] Saslukkzrl[address] [place], [place] [address]Dr. Villa Yanes Nitrite Ql (U) Negative Normal NEGATIVE [facility] Comment on above: Performed By: #### U AMIC ####[facility] Jeeqcstntg8806 [place] [address]Dr. [place]karen Yanes pH (U) 5.5 [pH] Normal 5-9 [facility] Comment on above: Performed By: #### U AMIC ####[facility] Gtuotpfzmz[address] [place], [place] [address]Dr. Villa Yanes RBC 0-2 Normal 0-2 [facility] Comment on above: Performed By: #### U AMIC ####[facility] Czyhpzzpyp[address] [place], [place] [id number]. Villa Yanes SPEC GRAVITY 1.025 Normal 1.005-<=1.0 25 [facility] Comment on above: Performed By: #### U AMIC ####[facility] Kpimxtyzqs3268 [place] [address]Dr. Villa Yanes UA PROTEIN 100 mg/dl Abnormal NEGATIVE/ TRACE [facility] Comment on above: Performed By: #### U AMIC ####[facility] Xkgxjcjhki6455 [place] [address]Dr. Villa Yanes Urobilinogen Qn (U) 0.2 {Mackenzie'U}/dL Normal 0.2 - 1. 0 [facility] Comment on above: Performed By: #### U AMIC ####[facility] Qdvmtpzxxa9069 [place] [address]Dr. Villa Yanes WBC NONE SEEN Normal NONE SEEN [facility] Comment on above: Performed By: #### U AMIC ####[facility] Dkvgxiyafp8160 [place] [address]Dr. Villa Yanes MRI LSPINE WO CONon 06-10-19 MRI LSPINE WO CON Normal [facility] CBC AUTO DIFFon 06-06-2022 BASO # 0.0 103/ul Normal 0.0-0.1 [facility] Comment on above: Performed By: #### C BC ####[facility] Qjbgccpqwu6556 [place] [address]Dr. Villa Joaquín Basophils/100 WBC (Bld) 0.4 % Normal 0.2-2.0 [facility] Comment on above: Performed By: #### C BC ####[facility] Kozjrphiml8812 [place] [address]Dr. Villa Joaquín EO # 0.1 103/ul Normal 0.0-0.7 [facility] Comment on above: Performed By: #### C BC ####[facility] Egbbeqcofj7964 [place] [address]Dr. Villa Yanes Eosinophils/100 WBC (Bld) 0.6 % Critically low 0.9-7.0 [facility] Comment on above: Performed By: #### C BC ####[facility] Cmmjqpckll1484 [place] [address]Dr. Villa Yanes Erythrocyte distribution width (RBC) [Ratio] 12.6 % Normal 11.0-15.0 [facility] Comment on above: Performed By: #### C BC ####[facility] Eupbyesvmb8386[address] [place], [place] [address]Dr. Villa Yanes Hematocrit (Bld) [Volume fraction] 34.1 % Critically low 42.0-54.0 [facility] Comment on above: Performed By: #### C BC ####[facility] Oenkrnibbw7324[address] [place], [place] [address]Dr. Villa Yanes Hemoglobin (Bld) [Mass/Vol] 11.3 g/dL Critically low 14.0-18.0 [facility] Comment on above: Performed By: #### C BC ####[facility] Fgiqqlwaiw[address] [place], [place] [address]Dr. Villa Yanes IG # 0.14 10e3/ul Critically high 0.00-0.03 [facility] Comment on above: Performed By: #### C BC ####[facility] Avepuxpgzb[address] [place], [place] [address]Dr. Villa Yanes IG % 1.2 % Critically high 0.0-0.5 [facility] Comment on above: Performed By: #### C BC ####[facility] Vlyhavxbqz0586[address] [place], [place] [address]Dr. Villa Yanes LYMPH # 1.1 103/ul Critically low 1.2-3.8 [facility] Comment on above: Performed By: #### C BC ####[facility] Ezftwvmghm4629[address] [place], [place] [address]Dr. Villa Yanes Lymphocytes/100 WBC (Bld) 9.8 % Critically low 20.5-60.0 [facility] Comment on above: Performed By: #### C BC ####[facility] Zpgqhcailc[address] [place], [place] [address]Dr. Villa Yanes MANUAL DIFF REQ NO Normal [facility] Comment on above: Performed By: #### C BC ####[facility] Mavzybydhs6755 [place] [id number]. Villa Joaquín MCH (RBC) [Entitic mass] 31.9 pg Normal 25.9-34.0 [facility] Comment on above: Performed By: #### C BC ####[facility] Vxmdjvbfbl6613 [place] [address]Dr. Villa Joaquín MCHC (RBC) [Mass/Vol] 33.1 g/dL Normal 29.9-35.2 [facility] Comment on above: Performed By: #### C BC ####[facility] Dhiwbsrvxl5281 [place] [address]Dr. [place]karen Yanes MCV (RBC) [Entitic vol] 96.3 fL Critically high 80.0-94.0 [facility] Comment on above: Performed By: #### C BC ####[facility] Niunapowim5[address] [place], [place] [address]Dr. Villa Yanes MONO # 0.8 103/ul Normal 0.3-0.8 [facility] Comment on above: Performed By: #### C BC ####[facility] Beculhigwe3458[address] [place], [place] [address]Dr. Brooklynkaren Yanes Monocytes/100 WBC (Bld) 6.7 % Normal 1.7-12.0 [facility] Comment on above: Performed By: #### C BC ####[facility] Lwypvkkcpj6[address] [place], [place] [address]Dr. Villa Yanes NEUT # 9.2 103/ul Critically high 1.4-6.5 [facility] Comment on above: Performed By: #### C BC ####[facility] Lvsvcivchb8864[address] [place], [place] [address]Dr. Villa Yanes Neutrophils/100 WBC (Bld) 81.3 % Critically high 43.0-75.0 [facility] Comment on above: Performed By: #### C BC ####[facility] Jabccbubpt[address] [place], [place] [address]Dr. Villa Yanes Platelet mean volume (Bld) [Entitic vol] 9.2 fL Critically low 9.5-13.5 [facility] Comment on above: Performed By: #### C BC ####[facility] Xpltkstjqb3442 [place] [address]Dr. Villa Yanes PLT 255 103/ul Normal 150-450 [facility] Comment on above: Performed By: #### C BC ####[facility] Gjvsdleprf0910 [place] [id number]. Villa Yanes RBC 3.54 106/ul Critically low 4.70-6.10 [facility] Comment on above: Performed By: #### C BC ####[facility] Oqtgtobsds6809 [place] [id number]. Villa Yanes WBC 11.3 103/ul Critically high 4.0-11.0 [facility] Comment on above: Performed By: #### C BC ####[facility] Pjbvhunypb8337 [place] [address]Dr. Villa Yanes ER URINE PROFILEon 3 Bilirubin Ql (U) Negative Normal NEGATIVE [facility] Comment on above: Performed By: #### Riddhi DAWN UMICRO ####[facility] [address]gtcfmtzoc[address] [place], [place] [id number]. Villa Yanes Clarity (U) CLEAR Normal CLEAR [facility] Comment on above: Performed By: #### ABDI CAMARENAICRO ####[facility] Ypcchwonfr7329 [place] [id number]. Villa Yanes Color (U) LT. YELLOW Normal YELLOW [facility] Comment on above: Performed By: #### Riddhi DAWN UMICRO ####[facility] Brgijquclm0626 [place] [id number]. Villa Yanes ERUAHD A micrscopic examina tion will be performed if indicated. Normal [facility] Comment on above: Performed By: #### Riddhi DAWN UMICRO ####[facility] Kludzvsgmf1074 [place] [id number]. Villa Yanes Glucose Ql (U) Negative Normal NEGATIVE [facility] Comment on above: Performed By: #### E ROBERTO CARLOS DAWN ####[facility] Ocgzxdxakp7090 [place] [address]Dr. Villa Yanes Hemoglobin Ql (U) Negative Normal NEGATIVE [facility] Comment on above: Performed By: #### ROBERTO CARLOS CAMARENA ####[facility] Bujqyweqxj0917 [place] [address]Dr. Villa Yanes Ketones Ql (U) Negative Normal NEGATIVE [facility] Comment on above: Performed By: #### ROBERTO CARLOS CAMARENA ####[facility] Fqymspkwxl[address] [place], [place] [address]Dr. Villa Yanes LEUKOCYTES Negative Normal NEGATIVE [facility] Comment on above: Performed By: #### ROBERTO CARLOS CAMARENA ####[facility] Appgkwbjfk5[address] [place], [place] [address]Dr. Villa Yanes Nitrite Ql (U) Negative Normal NEGATIVE [facility] Comment on above: Performed By: #### ROBERTO CARLOS CAMARENA ####[facility] Drxjhvtyhh8[address] [place], [place] [address]Dr. Villa Yanes pH (U) 5.5 [pH] Normal 5-9 [facility] Comment on above: Performed By: #### ROBERTO CARLOS CAMARENA ####[facility] Byrvbcwmzv1426[address] [place], [place] [address]Dr. Villa Yanes Protein (U) [Mass/Vol] 300 mg/dL Abnormal NEGATIVE/ TRACE [facility] Comment on above: Performed By: #### ROBERTO CARLOS CAMARENA ####[facility] Puhkqlghfw[address] [place], [place] [address]Dr. Villa Yanes SPEC GRAVITY 1.025 Normal 1.005-<=1.0 25 [facility] Comment on above: Performed By: #### ROBERTO CARLOS CAMARENA ####[facility] Rzpnjqrqmo22[address] [place], [place] [address]Dr. Villa Yanes UR MICRO IND INDICATED Normal [facility] Comment on above: Performed By: #### ROBERTO CARLOS CAMARENA ####[facility] Uzujjxgnzv98[address] [place], [place] [address]Dr. Villa Yanes Urobilinogen Qn (U) 0.2 {Mackenzie'U}/dL Normal 0.2 - 1. 0 [facility] Comment on above: Performed By: #### E ROBERTO CARLOS DAWN ####[facility] Rskvyqxnmm3594 [place] [address]Dr. Villa Yanes PROF 14(COMP METB)on 023 Albumin [Mass/Vol] 2.7 g/dL Critically low 3.4-5.0 [facility] Comment on above: Performed By: #### C MP ####[facility] Owdozkivju52[address] [place], [place] [address]Dr. Villa Yanes Albumin/Globulin [Mass ratio] 0.8 {ratio} Normal [facility] Comment on above: Performed By: #### C MP ####[facility] [facility] Mybyodsemi[address] [place], [place] [address]Dr. Villa Yanes ALP [Catalytic activity/Vol] 206 U/L Critically high 46-116 [facility] Comment on above: Performed By: #### C MP ####[facility] Fzyiuduwri[address] [place], [place] [address]Dr. Villa Yanes ALT [Catalytic activity/Vol] 8 U/L Critically low 16-63 [facility] Comment on above: Performed By: #### C MP ####[facility] Zqrdmqueup[address] [place], [place] [address]Dr. Villa Yanes Anion gap [Moles/Vol] 12.4 mmol/L Normal [facility] Comment on above: Performed By: #### C MP ####[facility] Fecusborym[address] [place], [place] [address]Dr. Villa Yanes AST [Catalytic activity/Vol] 9 U/L Critically low 15-37 [facility] Comment on above: Performed By: #### C MP ####[facility] Oazxashleh[address] [place], [place] [address]Dr. Villa Yanes Bilirubin [Mass/Vol] 0.2 mg/dL Normal 0.2-1.0 [facility] Comment on above: Performed By: #### C MP ####[facility] Tnnqnaqadq[address] [place] [id number]. Villa Yanes Calcium [Mass/Vol] 8.9 mg/dL Normal 8.5-10.1 [facility] Comment on above: Performed By: #### C MP ####[facility] Grgqxqgjnt29[address] [place] [id number]. Villa Yanes Chloride [Moles/Vol] 106 mmol/L Normal 98-107 [facility] Comment on above: Performed By: #### C MP ####[facility] Ttpfpsgyqd[address] [place] [address]Dr. Villa Yanes CO2 [Moles/Vol] 27.4 mmol/L Normal 21.0-32.0 [facility] Comment on above: Performed By: #### C MP ####[facility] Unpkrqgeat[address] [place] [address]Dr. Villa Yanes Creatinine [Mass/Vol] 1.26 mg/dL Normal 0.70-1.30 [facility] Comment on above: Performed By: #### C MP ####[facility] Zxzlwbbpck0880 [place] [id number]. Villa Yanes EGFR-AF BELIZEAN >60 Normal >=60 [facility] Comment on above: Performed By: #### C MP ####[facility] Mwysczvjib[address] [place] [address]Dr. Villa Yanes EGFR-NON AF BELIZEAN 55 mL/min/1.73m2 Critically low >=60 [facility] Comment on above: Performed By: #### C MP ####[facility] Hlhgtalmgj62[address] [place] [address]Dr. Villa Joaquín Globulin (S) [Mass/Vol] 3.5 g/dL Normal [facility] Comment on above: Performed By: #### C MP ####[facility] Xbzszcbagj7178 [place] [address]Dr. Villa Joaquín Glucose [Mass/Vol] 125 mg/dL Critically high 74-106 [facility] Comment on above: Performed By: #### C MP ####[facility] Mueatsrvcx6418 [place] [address]Dr. Villa Yanes Potassium [Moles/Vol] 3.8 mmol/L Normal 3.5-5.1 [facility] Comment on above: Performed By: #### C MP ####[facility] Zlqdpucjrt1548 [place] [address]Dr. Villa Yanes Protein [Mass/Vol] 6.2 g/dL Critically low 6.4-8.2 [facility] Comment on above: Performed By: #### C MP ####[facility] Yqnryokete9037 [place] [address]Dr. Villa Yanes Sodium [Moles/Vol] 142 mmol/L Normal 136-145 [facility] Comment on above: Performed By: #### C MP ####[facility] Ewnzueyyfe[address] [place], [place] [address]Dr. Villa Yanes Urea nitrogen [Mass/Vol] 30.0 mg/dL Critically high 7.0-18.0 [facility] Comment on above: Performed By: #### C MP ####[facility] Vfbhceyxkc8[address] [place], [place] [address]Dr. Villa Yanes Urea nitrogen/Creatinine [Mass ratio] 23.8 mg/mg Normal [facility] Comment on above: Performed By: #### C MP ####[facility] Xhpejclphy[address] [place], [place] [address]Dr. Villa Yanes URINE MICROSCOPIC ONLYon BACTERIA NONE SEEN Normal NONE SEEN [facility] Comment on above: Performed By: #### ROBERTO CARLOS CAMARENA ####[facility] Yoxngoupon13[address] [place] [address]Dr. Villa Yanes Bacteria identified Cx Nom (U) NOT INDICATED Normal [facility] Comment on above: Performed By: #### ROBERTO CARLOS CAMARENA ####[facility] Hbgidjakob[address] [place], [place] [address]Dr. Villa Yanes CAST SEEN Abnormal NONE SEEN [facility] Comment on above: Performed By: #### ROBERTO CARLOS CAMARENA ####[facility] Mzisacrpsw83[address] [place] [address]Dr. Villa Yanes Crystals LM Nom (Urine sed) NONE SEEN Normal NONE SEEN [facility] Comment on above: Performed By: #### Riddhi DAWN UMICRO ####[facility] Xaywstperr3256 [place] [address]Dr. Villa Yanes Epithelial cells LM Ql (Urine sed) NONE SEEN Normal NONE SEEN /RARE [facility] Comment on above: Performed By: #### Riddhi DAWN UMICRO ####[facility] Nxiledtjqr8483 [place] [address]Dr. Villa Yanes MUCOUS NONE SEEN Normal NONE SEEN [facility] Comment on above: Performed By: #### Riddhi DAWN UMICRO ####[facility] Ezfenajbph6717 [place] [address]Dr. Villa Yanes RBC NONE SEEN Abnormal 0-2 [facility] Comment on above: Performed By: #### Riddhi DAWN UMICRO ####[facility] Otdbhqtdvh9153 [place] [address]Dr. Villa Yanes WBC 0-2 Abnormal NONE SEEN [facility] Comment on above: Performed By: #### Riddhi DAWN UMICRO ####[facility] Hvcwaqoyqc4198 [place] [address]Dr. Villa Yanes WBC CELLULAR CAST RARE Normal [facility] Comment on above: Performed By: #### Riddhi DAWN UMICRO ####[facility] Tcmsxineqj7391 [place] [address]Dr. Villa Yanes XR SACRUM_COCCYXon 3 XR SACRUM_COCCYX Normal [facility] BNPon 05-08-2022 Natriuretic peptide B (Bld) [Mass/Vol] 2957.0 pg/mL Critically high <=1,800.0 [facility] Comment on above: Performed By: #### T SH, BNP, CMADM, CMP, T7 ####[facility] Umongsrxpp1119 [place] [address]Dr. Villa Yanes CARDIAC ANAMARIA ADMITon 022 CK [Catalytic activity/Vol] 88 U/L Normal 39-308 [facility] Comment on above: Performed By: #### T SH, BNP, CMADM, CMP, T7 ####[facility] Ncoxsjseak6448 [place] [address]Dr. Villa Yanes CK.MB [Mass/Vol] 2.75 ng/mL Normal <=3.60 [facility] Comment on above: Performed By: #### T SH, BNP, CMADM, CMP, T7 ####[facility] Mwzcdgrwcu6561 [place] [address]Dr. Villa Yanes HSTROP 10.4 pg/mL Normal 4.0-76.1 [facility] Comment on above: Result Comment: CUT- OFF POINTS HAVE BEEN ESTABLISHED BASED ON THE FOURTH UNIVERSAL DEFINITIONS OF MYOCARDIALINFARCTION. THE UPPER REFERENCE LIMIT (URL) OF TROPONIN, DEFINED THE 99TH PERCENTILE OFcTnI DISTRIBUTION IN A REFERENCE POPULATION, HAS BEEN CONFIRMED THE DECISION THRESHOLDFOR PA DIAGNOSIS. Performed By: #### T SH, BNP, CMADM, CMP, T7 ####[facility] Ojzbzlowxx6167 [place] [address]Dr. Villa Yanes JULIA 109 ng/mL Critically high 16-96 [facility] Comment on above: Performed By: #### T SH, BNP, CMADM, CMP, T7 ####[facility] Nlncmhyfjd[address] [place], [place] [address]Dr. Villa Yanes CBC AUTO DIFFon 05-08-2022 BASO # 0.0 103/ul Normal 0.0-0.1 [facility] Comment on above: Performed By: #### C BC ####[facility] Htaemegbhr65[address] [place], [place] [address]Dr. Villa Yanes Basophils/100 WBC (Bld) 0.2 % Normal 0.2-2.0 [facility] Comment on above: Performed By: #### C BC ####[facility] Exhtcntrdx3[address] [place], [place] [address]DrBrenden Yanes EO # 0.0 103/ul Normal 0.0-0.7 [facility] Comment on above: Performed By: #### C BC ####[facility] Ixiqocvchc[address] [place], [place] [address]DrBrenden Yanes Eosinophils/100 WBC (Bld) 0.0 % Critically low 0.9-7.0 [facility] Comment on above: Performed By: #### C BC ####[facility] Bdnzwpysir[address] [place], [place] [address]Dr. Villa Yanes Erythrocyte distribution width (RBC) [Ratio] 12.5 % Normal 11.0-15.0 [facility] Comment on above: Performed By: #### C BC ####[facility] Cvxgcrnidx70[address] [place], [place] [address]Dr. Villa Yanes Hematocrit (Bld) [Volume fraction] 30.0 % Critically low 42.0-54.0 [facility] Comment on above: Performed By: #### C BC ####[facility] Jjretvimvd[address] [place], [place] [address]Dr. Villa Yanes Hemoglobin (Bld) [Mass/Vol] 9.9 g/dL Critically low 14.0-18.0 [facility] Comment on above: Performed By: #### C BC ####[facility] Kuprshhtkh[address] [place], [place] [address]Dr. Villa Yanes IG # 0.13 10e3/ul Critically high 0.00-0.03 [facility] Comment on above: Performed By: #### C BC ####[facility] Lhuznenyru[address] [place], [place] [address]Dr. Villa Yanes IG % 0.9 % Critically high 0.0-0.5 [facility] Comment on above: Performed By: #### C BC ####[facility] Iopioeanfm07[address] [place], [place] [address]Dr. Villa Yanes LYMPH # 0.8 103/ul Critically low 1.2-3.8 [facility] Comment on above: Performed By: #### C BC ####[facility] Ggpsnstssd[address] [place], [place] [address]Dr. Villa Yaens Lymphocytes/100 WBC (Bld) 5.7 % Critically low 20.5-60.0 [facility] Comment on above: Performed By: #### C BC ####[facility] S[address]noznnfi[address] [place], [place] [id number]. Brooklynkaren Yanes MANUAL DIFF REQ NO Normal [facility] Comment on above: Performed By: #### C BC ####[facility] Ephdcgjuih5167 [place] [address]Dr. Villa Joaquín MCH (RBC) [Entitic mass] 32.1 pg Normal 25.9-34.0 [facility] Comment on above: Performed By: #### C BC ####[facility] Mnxshcauvz[address] [place], [place] [address]Dr. Villa Joaquín MCHC (RBC) [Mass/Vol] 33.0 g/dL Normal 29.9-35.2 [facility] Comment on above: Performed By: #### C BC ####[facility] Vajssndiff[address] [place], [place] [address]Dr. Brooklynkaren Yanes MCV (RBC) [Entitic vol] 97.4 fL Critically high 80.0-94.0 [facility] Comment on above: Performed By: #### C BC ####[facility] Iogmsjvajj[address] [place], [place] [address]Dr. Villa Yanes MONO # 0.5 103/ul Normal 0.3-0.8 [facility] Comment on above: Performed By: #### C BC ####[facility] Kkxochzkaw[address] [place], [place] [address]Dr. Villa Yanes Monocytes/100 WBC (Bld) 3.4 % Normal 1.7-12.0 [facility] Comment on above: Performed By: #### C BC ####[facility] Dalldkewuw[address] [place], [place] [address]Dr. Villa Yanes NEUT # 13.1 103/ul Critically high 1.4-6.5 [facility] Comment on above: Performed By: #### C BC ####[facility] Dcgzorsvhq[address] [place], [place] [address]Dr. Villa Yanes Neutrophils/100 WBC (Bld) 89.8 % Critically high 43.0-75.0 [facility] Comment on above: Performed By: #### C BC ####[facility] Jhsephezvj[address] [place], [place] [address]Dr. Villa Yanes Platelet mean volume (Bld) [Entitic vol] 9.9 fL Normal 9.5-13.5 [facility] Comment on above: Performed By: #### C BC ####[facility] Ncvmrrsgpd5058 [place] [address]Dr. Villa Yanes PLT 281 103/ul Normal 150-450 [facility] Comment on above: Performed By: #### C BC ####[facility] Wchugrduob4673 [place] [address]Dr. Villa Yanes RBC 3.08 106/ul Critically low 4.70-6.10 [facility] Comment on above: Performed By: #### C BC ####[facility] Kulziteffj5303 [place] [address]Dr. Villa Yanes WBC 14.6 103/ul Critically high 4.0-11.0 [facility] Comment on above: Performed By: #### C BC ####[facility] Jmhrgybtnr0846 [place] [address]Dr. Villa Yanes FREE THYROXINE INDEX T7on FTI 1.87 Normal 1.30-4.50 [facility] Comment on above: Performed By: #### T SH, BNP, CMADM, CMP, T7 ####[facility] Ekdglmtwqm8817 [place] [address]Dr. Villa Yanes T3U 39.0 % Normal 33.0-40.0 [facility] Comment on above: Performed By: #### T SH, BNP, CMADM, CMP, T7 ####[facility] Gtkphjuoco6129 [place] [id number]. Villa Yanes T4 [Mass/Vol] 4.80 ug/dL Normal 4.50-12.10 [facility] Comment on above: Performed By: #### T SH, BNP, CMADM, CMP, T7 ####[facility] Ptqmgyubnf8540 [place] [id number]. Villa Yanes IRONon 05-08-2022 Iron [Mass/Vol] 96.0 ug/dL Normal 65.0-175.0 [facility] Comment on above: Performed By: #### I JOSE ####[facility] Bvrxsbydwk0905 [place] [address]Dr. Villa Yanes PROF 14(COMP METB)on 022 Albumin [Mass/Vol] 2.8 g/dL Critically low 3.4-5.0 [facility] Comment on above: Performed By: #### T SH, BNP, CMADM, CMP, T7 ####[facility] Iynhtuqfth4913 [place] [address]Dr. Villa Yanes Albumin/Globulin [Mass ratio] 0.7 {ratio} Normal [facility] Comment on above: Performed By: #### T SH, BNP, CMADM, CMP, T7 ####[facility] Adjddiyjjn6259 [place] [address]Dr. Villa Yanes ALP [Catalytic activity/Vol] 231 U/L Critically high 46-116 [facility] Comment on above: Performed By: #### T SH, BNP, CMADM, CMP, T7 ####[facility] Euwcbuxkdw[address] [place], [place] [address]Dr. Villa Yanes ALT [Catalytic activity/Vol] 13 U/L Critically low 16-63 [facility] Comment on above: Performed By: #### T SH, BNP, CMADM, CMP, T7 ####[facility] Zmfopmidmn1434 [place] [address]Dr. Villa Yanes Anion gap [Moles/Vol] 13.1 mmol/L Normal [facility] Comment on above: Performed By: #### T SH, BNP, CMADM, CMP, T7 ####[facility] Ucepqnuvxs8657 [place] [address]Dr. Villa Yanes AST [Catalytic activity/Vol] 14 U/L Critically low 15-37 [facility] Comment on above: Performed By: #### T SH, BNP, CMADM, CMP, T7 ####[facility] Xgpjswkrgj2480 [place] [address]Dr. Villa Yanes Bilirubin [Mass/Vol] 0.2 mg/dL Normal 0.2-1.0 [facility] Comment on above: Performed By: #### T SH, BNP, CMADM, CMP, T7 ####[facility] Befgrxxbxt6183 [place] [address]Dr. Villa Yanes Calcium [Mass/Vol] 8.7 mg/dL Normal 8.5-10.1 [facility] Comment on above: Performed By: #### T SH, BNP, CMADM, CMP, T7 ####[facility] Unqggnlgzg9613 [place] [address]Dr. Villa Yanes Chloride [Moles/Vol] 107 mmol/L Normal 98-107 [facility] Comment on above: Performed By: #### T SH, BNP, CMADM, CMP, T7 ####[facility] Cnaupxljtx4063 [place] [address]Dr. Villa Yanes CO2 [Moles/Vol] 26.3 mmol/L Normal 21.0-32.0 [facility] Comment on above: Performed By: #### T SH, BNP, CMADM, CMP, T7 ####[facility] Xhawopjwtn[address] [place], [place] [address]Dr. Villa Yanes Creatinine [Mass/Vol] 1.42 mg/dL Critically high 0.70-1.30 [facility] Comment on above: Performed By: #### T SH, BNP, CMADM, CMP, T7 ####[facility] Mdamkuyxur1753 [place] [address]Dr. Villa Yanes EGFR-AF BELIZEAN 58 mL/min/1.73m2 Critically low >=60 [facility] Comment on above: Performed By: #### T SH, BNP, CMADM, CMP, T7 ####[facility] Xeoysurzws2180 [place] [address]Dr. Villa Yanes EGFR-NON AF BELIZEAN 48 mL/min/1.73m2 Critically low >=60 [facility] Comment on above: Performed By: #### T SH, BNP, CMADM, CMP, T7 ####[facility] Ztpcxuslfr9154 [place] [address]Dr. Villa Yanes Globulin (S) [Mass/Vol] 3.8 g/dL Normal [facility] Comment on above: Performed By: #### T SH, BNP, CMADM, CMP, T7 ####[facility] Musgubqhno7135 [place] [address]Dr. Villa Yanes Glucose [Mass/Vol] 144 mg/dL Critically high 74-106 [facility] Comment on above: Performed By: #### T SH, BNP, CMADM, CMP, T7 ####[facility] Pltdqmmaet1089 [place] [address]Dr. Villa Yanes Potassium [Moles/Vol] 4.4 mmol/L Normal 3.5-5.1 [facility] Comment on above: Performed By: #### T SH, BNP, CMADM, CMP, T7 ####[facility] Dhzncgbnoq67[address] [place], [place] [address]Dr. Villa Yanes Protein [Mass/Vol] 6.6 g/dL Normal 6.4-8.2 [facility] Comment on above: Performed By: #### T SH, BNP, CMADM, CMP, T7 ####[facility] Gswktaotyq[address] [place], [place] [address]Dr. Villa Yanes Sodium [Moles/Vol] 142 mmol/L Normal 136-145 [facility] Comment on above: Performed By: #### T SH, BNP, CMADM, CMP, T7 ####[facility] Qvshfipkbl0421 [place] [address]Dr. Villa Yanes Urea nitrogen [Mass/Vol] 49.0 mg/dL Critically high 7.0-18.0 [facility] Comment on above: Performed By: #### T SH, BNP, CMADM, CMP, T7 ####[facility] Tafdfaeymb3840 [place] [address]Dr. Villa Yanes Urea nitrogen/Creatinine [Mass ratio] 34.5 mg/mg Normal [facility] Comment on above: Performed By: #### T SH, BNP, CMADM, CMP, T7 ####[facility] Brdjxmouze4081 [place] [address]Dr. Villa Yanes TSHon 05-08-2022 TSH 0.099 uIU/mL Critically low 0.358-3.740 [facility] Comment on above: Performed By: #### T SH, BNP, CMADM, CMP, T7 ####[facility] Nbfncbdzff7729 [place] [address]Dr. Villa Yanes XR SACRUM_COCCYXon 2 XR SACRUM_COCCYX Normal [facility] GLYCOHEMOGLOBIN A1Con 2021 ADA RECOMMENDATION SEE BELOW Normal [facility] Comment on above: Result Comment: ADA RECOMMENDED LIMIT 4.0 - 6.0 ADA THERAPEUTIC TARGET < 7.0 ACTION SUGGESTED > 7.0 Performed By: #### A 1C ####[facility] Ztacaaruaf[address] [place], [place] [address]Dr. Villa Yanes Glucose [Mass/Vol] 140 mg/dL Normal [facility] Comment on above: Performed By: #### A 1C ####[facility] Lxahjpakna[address] [place], [place] [address]Dr. Villa Yanes HbA1c (Bld) [Mass fraction] 6.5 % Critically high 4.5-6.2 [facility] Comment on above: Performed By: #### A 1C ####[facility] Gutyslpkwd6562 [place] [address]Dr. Villa Yanes CBC AUTO DIFFon 04-03-2022 BASO # 0.1 103/ul Normal 0.0-0.1 [facility] Comment on above: Performed By: #### C BC ####[facility] Ijbxmlhexx02[address] [place], [place] [address]Dr. Villa Yanes Basophils/100 WBC (Bld) 0.4 % Normal 0.2-2.0 [facility] Comment on above: Performed By: #### C BC ####[facility] Wkizzegtid5241 [place] [address]DrBrenden Yanes EO # 0.3 103/ul Normal 0.0-0.7 [facility] Comment on above: Performed By: #### C BC ####[facility] Uzvwftmhwu94[address] [place], [place] [address]Dr. Villa Yanes Eosinophils/100 WBC (Bld) 2.4 % Normal 0.9-7.0 [facility] Comment on above: Performed By: #### C BC ####[facility] Eoywgmwjpo2503 [place] [address]Dr. Villa Yanes Erythrocyte distribution width (RBC) [Ratio] 12.3 % Normal 11.0-15.0 [facility] Comment on above: Performed By: #### C BC ####[facility] Jnhjpmojxn[address] [place], [place] [address]Dr. Villa Yanes Hematocrit (Bld) [Volume fraction] 34.6 % Critically low 42.0-54.0 [facility] Comment on above: Performed By: #### C BC ####[facility] Dxxqbwgwba[address] [place], [place] [address]Dr. Villa Yanes Hemoglobin (Bld) [Mass/Vol] 11.4 g/dL Critically low 14.0-18.0 [facility] Comment on above: Performed By: #### C BC ####[facility] Qtmkgfupkc04[address] [place], [place] [address]DrBrenden Villa Yanes IG # 0.07 10e3/ul Critically high 0.00-0.03 [facility] Comment on above: Performed By: #### C BC ####[facility] Nirhiemguj38[address] [place], [place] [address]DrBrenden Villa Yanes IG % 0.5 % Normal 0.0-0.5 [facility] Comment on above: Performed By: #### C BC ####[facility] Ungdxwbxcb[address] [place], [place] [address]DrBrenden Villa Joaquín LYMPH # 1.9 103/ul Normal 1.2-3.8 [facility] Comment on above: Performed By: #### C BC ####[facility] Yftbhqokcm[address] [place], [place] [address]DrBrenden Villa Joaquín Lymphocytes/100 WBC (Bld) 14.4 % Critically low 20.5-60.0 [facility] Comment on above: Performed By: #### C BC ####[facility] Gqpbmziyxv[address] [place], [place] [address]DrBrenden Brooklynkaren Yanes MANUAL DIFF REQ NO Normal [facility] Comment on above: Performed By: #### C BC ####[facility] Nhnssjifdq9370 [place] [address]Dr. Villa Joaquín MCH (RBC) [Entitic mass] 31.4 pg Normal 25.9-34.0 [facility] Comment on above: Performed By: #### C BC ####[facility] Umogqqyuyy[address] [place] [address]Dr. Villa Joaquín MCHC (RBC) [Mass/Vol] 32.9 g/dL Normal 29.9-35.2 [facility] Comment on above: Performed By: #### C BC ####[facility] Nddbjprqpb9940 [place] [address]DrBrenden Yanes MCV (RBC) [Entitic vol] 95.3 fL Critically high 80.0-94.0 [facility] Comment on above: Performed By: #### C BC ####[facility] Duvgtamkyc[address] [place], [place] [address]DrBrenden Yanes MONO # 0.8 103/ul Normal 0.3-0.8 [facility] Comment on above: Performed By: #### C BC ####[facility] Nferxlutnw[address] [place], [place] [address]Dr. Villa Yanes Monocytes/100 WBC (Bld) 5.8 % Normal 1.7-12.0 [facility] Comment on above: Performed By: #### C BC ####[facility] Qmkocaiytv[address] [place], [place] [address]DrBrenden Yanes NEUT # 10.3 103/ul Critically high 1.4-6.5 [facility] Comment on above: Performed By: #### C BC ####[facility] Fnrrmtnvvq[address] [place], [place] [address]DrBrenden Yanes Neutrophils/100 WBC (Bld) 76.5 % Critically high 43.0-75.0 [facility] Comment on above: Performed By: #### C BC ####[facility] Uaqcydjixz[address] [place], [place] [address]DrBrednen Yanes Platelet mean volume (Bld) [Entitic vol] 9.6 fL Normal 9.5-13.5 [facility] Comment on above: Performed By: #### C BC ####[facility] Xekbfayxqp2975 [place] [address]Dr. Brooklynkaren Yanes PLT 283 103/ul Normal 150-450 [facility] Comment on above: Performed By: #### C BC ####[facility] Vr[address]vwrk[address] [place] [id number]. Brooklynkaren Yanes RBC 3.63 106/ul Critically low 4.70-6.10 [facility] Comment on above: Performed By: #### C BC ####[facility] Wjcdenonpf[address] [place] [address]Dr. Brooklynkaren Yanes WBC 13.4 103/ul Critically high 4.0-11.0 [facility] Comment on above: Performed By: #### C BC ####[facility] Lvuhbtngqt[address] [place] [address]. [place] Yanes CT ABD/PELV W CONon 04-03-[address] ABD/PELV W CON Normal [facility] ER URINE PROFILEon 2 Bilirubin Ql (U) Negative Normal NEGATIVE [facility] Comment on above: Performed By: #### U MICRO, ERUR ####[facility] Wygfcpailp[address] [place], [place] [address]Dr. Villa Yanes Clarity (U) CLEAR Normal CLEAR [facility] Comment on above: Performed By: #### U MICRO, ERUR ####[facility] Jvzbiwnieq[address] [place] [address]Dr. Villa Yanes Color (U) YELLOW Normal YELLOW [facility] Comment on above: Performed By: #### U MICRO, ERUR ####[facility] Yxtilaipwv[address] [place], [place] [address]Dr. Villa Yanes ERUAHD A micrscopic examina tion will be performed if indicated. Normal [facility] Comment on above: Performed By: #### U MICRO, ERUR ####[facility] Ajzhpmziwh[address] [place] [address]Dr. Villa Yanes Glucose Ql (U) Negative Normal NEGATIVE [facility] Comment on above: Performed By: #### U MICRO, ERUR ####[facility] Ulvppphnhr[address] [place] [address]Dr. Villa Yanes Hemoglobin Ql (U) Negative Normal NEGATIVE [facility] Comment on above: Performed By: #### U MICRO, ERUR ####[facility] Ngdvvptscu[address] [place], [place] [address]Dr. Villa Yanes Ketones Ql (U) Negative Normal NEGATIVE [facility] Comment on above: Performed By: #### U MICRO, ERUR ####[facility] Kaoqfnyeyw3[address] [place], [place] [address]Dr. Villa Yanes LEUKOCYTES TRACE Abnormal NEGATIVE [facility] Comment on above: Performed By: #### U MICRO, ERUR ####[facility] Ndfgrpflpe[address] [place], [place] [address]Dr. Villa Yanes Nitrite Ql (U) Negative Normal NEGATIVE [facility] Comment on above: Performed By: #### U MICRO, ERUR ####[facility] Fmqycvusjo35[address] [place], [place] [address]Dr. Villa Yanes pH (U) 6.0 [pH] Normal 5-9 [facility] Comment on above: Performed By: #### U MICRO, ERUR ####[facility] Lniliznkgh[address] [place], [place] [address]Dr. Villa Yanes Protein (U) [Mass/Vol] 100 mg/dL Abnormal NEGATIVE/ TRACE [facility] Comment on above: Performed By: #### U MICRO, ERUR ####[facility] Qjutdmxgsp4[address] [place], [place] [address]Dr. Villa Yanes SPEC GRAVITY 1.020 Normal 1.005-<=1.0 25 [facility] Comment on above: Performed By: #### U MICRO, ERUR ####[facility] Pfacaibjea[address] [place], [place] [address]Dr. Villa Yanes UR MICRO IND INDICATED Normal [facility] Comment on above: Performed By: #### U MICRO, ERUR ####[facility] Loamicbatk[address] [place], [place] [address]Dr. Villa Yanes Urobilinogen Qn (U) 0.2 {Mackenzie'U}/dL Normal 0.2 - 1. 0 [facility] Comment on above: Performed By: #### U MICRO, ERUR ####[facility] Btxeuuhrxg[address] [place] [address]Dr. Villa Yanes LIPASEon 04-03-2022 Lipase [Catalytic activity/Vol] 35.0 U/L Critically low 73.0-393.0 [facility] Comment on above: Performed By: #### L IPA HSTROPN, CMP ####[facility] Ewworiwszm[address] [place] [address]Dr. Villa Yanes PROF 14(COMP METB)on 022 Albumin [Mass/Vol] 3.2 g/dL Critically low 3.4-5.0 [facility] Comment on above: Performed By: #### L IPA HSTROPN, CMP ####[facility] Doreqfizlu[address] [place] [address]Dr. Villa Yanes Albumin/Globulin [Mass ratio] 0.8 {ratio} Normal [facility] Comment on above: Performed By: #### L IPA HSTROPN, CMP ####[facility] Jtlijligva[address] [place] [address]Dr. Villa Yanes ALP [Catalytic activity/Vol] 131 U/L Critically high 46-116 [facility] Comment on above: Performed By: #### L IPA, HSTROPN, CMP ####[facility] Snojgleiqx[address] [place] [address]Dr. Villa Yanes ALT [Catalytic activity/Vol] U/L Critically low 16-63 [facility] Comment on above: Performed By: #### L IPA, HSTROPN, CMP ####[facility] Tiqosabqiw[address] [place] [address]Dr. Villa Yanes Anion gap [Moles/Vol] 7.7 mmol/L Normal [facility] Comment on above: Performed By: #### L IPA, HSTROPN, CMP ####[facility] Cctnyntznn[address] [place] [address]Dr. Villa Yanes AST [Catalytic activity/Vol] 6 U/L Critically low 15-37 [facility] Comment on above: Performed By: #### L IPA, HSTROPN, CMP ####[facility] Wgwbubchpe[address] [place], [place] [address]Dr. Villa Yanes Bilirubin [Mass/Vol] 0.2 mg/dL Normal 0.2-1.0 [facility] Comment on above: Performed By: #### L IPA, HSTROPN, CMP ####[facility] Nzsuhavakc[address] [place], [place] [address]Dr. Villa Yanes Calcium [Mass/Vol] 9.1 mg/dL Normal 8.5-10.1 [facility] Comment on above: Performed By: #### L IPA, HSTROPN, CMP ####[facility] Wpaehcbdvp[address] [place], [place] [address]Dr. Villa Yanes Chloride [Moles/Vol] 104 mmol/L Normal 98-107 [facility] Comment on above: Performed By: #### L IPA, HSTROPN, CMP ####[facility] Ifndynfwbo[address] [place], [place] [address]Dr. Villa Yanes CO2 [Moles/Vol] 29.7 mmol/L Normal 21.0-32.0 [facility] Comment on above: Performed By: #### L IPA, HSTROPN, CMP ####[facility] Ruhcppjorv[address] [place], [place] [address]Dr. Villa Yanes Creatinine [Mass/Vol] 1.35 mg/dL Critically high 0.70-1.30 [facility] Comment on above: Performed By: #### L IPA, HSTROPN, CMP ####[facility] Dmfyxlmcfi[address] [place], [place] [address]Dr. Villa Yanes EGFR-AF BELIZEAN >60 Normal >=60 [facility] Comment on above: Performed By: #### L IPA, HSTROPN, CMP ####[facility] Zvmndetaea[address] [place], [place] [address]Dr. Villa Yanes EGFR-NON AF BELIZEAN 51 mL/min/1.73m2 Critically low >=60 [facility] Comment on above: Performed By: #### L IPA HSTROPN, CMP ####[facility] Cddxwdmpdb[address] [place] [address]Dr. Villa Yanes Globulin (S) [Mass/Vol] 4.2 g/dL Normal [facility] Comment on above: Performed By: #### L IPA, HSTROPN, CMP ####[facility] Cygbtrmzcf[address] [place] [address]Dr. Villa Yanes Glucose [Mass/Vol] 116 mg/dL Critically high 74-106 [facility] Comment on above: Performed By: #### L IPA, HSTROPN, CMP ####[facility] Wqdijcinpg[address] [place], [place] [address]Dr. Villa Yanes Potassium [Moles/Vol] 3.4 mmol/L Critically low 3.5-5.1 [facility] Comment on above: Performed By: #### L IPA, HSTROPN, CMP ####[facility] Mybrqgmxuf5[address] [place], [place] [address]Dr. Villa Yanes Protein [Mass/Vol] 7.4 g/dL Normal 6.4-8.2 [facility] Comment on above: Performed By: #### L IPA, HSTROPN, CMP ####[facility] Dvoikygikr[address] [place], [place] [address]Dr. Villa Yanes Sodium [Moles/Vol] 138 mmol/L Normal 136-145 [facility] Comment on above: Performed By: #### L IPA, HSTROPN, CMP ####[facility] Vrjbymzjbr[address] [place], [place] [address]Dr. Villa Yanes Urea nitrogen [Mass/Vol] 35.0 mg/dL Critically high 7.0-18.0 [facility] Comment on above: Performed By: #### L IPA, HSTROPN, CMP ####[facility] E[address]wqx[address] [place] [address]Dr. Villa Yanes Urea nitrogen/Creatinine [Mass ratio] 25.9 mg/mg Normal [facility] Comment on above: Performed By: #### L IPA, HSTROPN, CMP ####[facility] Xkbzpiyjcm[address] [place] [address]Dr. Villa Yanes TROPONIN, HIGH SENSITIVITYon 04-03-2022 HSTROP 10.3 pg/mL Normal 4.0-76.1 [facility] Comment on above: Result Comment: CUT- OFF POINTS HAVE BEEN ESTABLISHED BASED ON THE FOURTH UNIVERSAL DEFINITIONS OF MYOCARDIALINFARCTION. THE UPPER REFERENCE LIMIT (URL) OF TROPONIN, DEFINED THE 99TH PERCENTILE OFcTnI DISTRIBUTION IN A REFERENCE POPULATION, HAS BEEN CONFIRMED THE DECISION THRESHOLDFOR PA DIAGNOSIS. Performed By: #### L IPA, HSTROPN, CMP ####[facility] [address] [place] [address]Dr. Brooklynkaren Joaquín URINE MICROSCOPIC ONLYon BACTERIA NONE SEEN Normal NONE SEEN [facility] Comment on above: Performed By: #### U MICRO, ERUR ####[facility] Hdzrehmqjn[address] [place], [place] [address]Dr. Villa Yanes Bacteria identified Cx Nom (U) NOT INDICATED Normal [facility] Comment on above: Performed By: #### U MICRO, ERUR ####[facility] Scqepvmajj[address] [place], [place] [address]Dr. Villa Yanes CAST SEEN Abnormal NONE SEEN [facility] Comment on above: Performed By: #### U MICRO, ERUR ####[facility] [address] [place] [address]Dr. Villa Yanes Crystals LM Nom (Urine sed) NONE SEEN Normal NONE SEEN [facility] Comment on above: Performed By: #### U MICRO, ERUR ####[facility] [address]qzolgkf[address] [place] [address]Dr. Villa Yanes Epithelial cells LM Ql (Urine sed) NONE SEEN Normal NONE SEEN /RARE [facility] Comment on above: Performed By: #### U MICRO, ERUR ####[facility] Oq[address]eqygn[address] [place] [address]Dr. Villa Yanes MUCOUS NONE SEEN Normal NONE SEEN [facility] Comment on above: Performed By: #### U MICRO, ERUR ####[facility] Ts[address]hw[address] [place], [place] [address]Dt. Villa Yanes RBC NONE SEEN Abnormal 0-2 [facility] Comment on above: Performed By: #### U MICRO, ERUR ####[facility] [address] [place], [place] [address]Vp. Villa Yanes WBC 0-2 Abnormal NONE SEEN [facility] Comment on above: Performed By: #### U MICRO, ERUR ####[facility] [address]ucbum[address] [place], [place] [address]Sv. 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.01) (I25.10) Ischemic cardiomyopathy (414.8) (I25.5) Paroxysmal atrial fibrillation (427.31) (I48.0) Body mass index (BMI) of 19.9 or less in adult (Z68.1) Cardiac arrest (427.5) (I46.9) PVD (peripheral vascular disease) (443.9) (I73.9) CHF (NYHA class II, ACC/AHA stage C) (428.0) (I50.9) Current smoker (305.1) (F17.200) 1 ppd Orders Coronary artery disease involving [place] coronary artery of [place] heart without angina pectoris Renew: Clopidogrel Bisulfate 75 MG Oral Tablet (Plavix); TAKE 1 TABLET DAILY Coronary artery disease involving [place] coronary artery of [place] heart without angina pectoris, Hyperlipidemia Start: Atorvastatin [...] we can help. You may also call [phone]; Status:Complete - Retrospective Authorization; Done: [id number] Tobacco Use Screening; Status:Complete; Done: [id number] Patient Instructions Please bring all medicines, vitamins, [...] to 60% as measured by echo at [facility]. He has underlying peripheral vascular disease, ongoing tobacco use, COPD, history of throat cancer with PEG tube. He underwent recent hospitalization at [facility] with significant weight loss and debility and revision of his PEG tube and now clinically improved putting and weight back on. He was diagnosed with paroxysmal atrial fibrillation at the clinic and therefore initiated on Eliquis therapy. [facility] records are reviewed in their entirety that [...] Percutaneous endoscopic gastrostomy tube insertion History of [employer] CL[employer] femoral-popliteal History of Urinary catheter placement Current [...] change i (more content not included)... Normal [place] Tobacco Screening.on 022 Fall risk assessment a) No falls within the last year [facility] [employer] DO Work Phone: Tobacco use status [facility] a) Yes [facility] [employer] DO Work Phone: Tobacco Screening. 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 Yes -[facility] zamoranoy 250 DO Work Phone: Tobacco Screening.on 022 Fall risk assessment b) One or more fall s in the last year [facility] Ezra carvajal 250 DO Work Phone: Tobacco use status CP a) Yes [facility] HeartAlexis carvajal 250 DO Work Phone: Tobacco Screening. Yes -[facility] HeartAlexis carvajal 250 DO Work Phone: CULTURE URINEon 12-21-2021 CULTURE URINE Normal [facility] Comment on above: Performed By: #### U RCX ####[facility] Qfcqlwdigd[address] [place], [place] [address]DrBrenden Yanes UA RANDOM W/MICROSCOPICon BACTERIA LARGE Abnormal NONE SEEN [facility] Comment on above: Performed By: #### U AMIC ####[facility] Xjgbhyjwsz65[address] [place] [address]Dr. Villa Yanes Bilirubin Ql (U) Negative Normal NEGATIVE [facility] Comment on above: Performed By: #### U AMIC ####[facility] Dzmybwkvdv1686 [place] [address]DrBrenden Yanes CAST NONE SEEN Normal NONE SEEN [facility] Comment on above: Performed By: #### U AMIC ####[facility] Pcsljrjkcy[address] [place] [address]Dr. Villa Yanes Clarity (U) CLEAR Normal CLEAR [facility] Comment on above: Performed By: #### U AMIC ####[facility] Orizadufzn1346 [place] [address]Dr. Villa Yanes Color (U) LT. YELLOW Normal YELLOW [facility] Comment on above: Performed By: #### U AMIC ####[facility] Jehvsdusry[address] [place], [place] [address]Dr. Villa Yanes Crystals LM Nom (Urine sed) NONE SEEN Normal NONE SEEN [facility] Comment on above: Performed By: #### U AMIC ####[facility] Jaswzlrcdh[address] [place], [place] [address]Dr. Villa Yanes Epithelial cells LM Ql (Urine sed) FEW Abnormal NONE SEEN /RARE [facility] Comment on above: Performed By: #### U AMIC ####[facility] Cdchjbiopq[address] [place], [place] [address]Dr. Villa Yanes Glucose Ql (U) Negative Normal NEGATIVE [facility] Comment on above: Performed By: #### U AMIC ####[facility] Umgmjtoosx49[address] [place], [place] [address]Dr. Villa Yanes Hemoglobin Ql (U) Negative Normal NEGATIVE [facility] Comment on above: Performed By: #### U AMIC ####[facility] Xhuurovudg[address] [place], [place] [address]Dr. Villa Yanes Ketones Ql (U) Negative Normal NEGATIVE [facility] Comment on above: Performed By: #### U AMIC ####[facility] Eipscpyihg[address] [place], [place] [address]Dr. Villa Yanes LEUKOCYTES LARGE Abnormal NEGATIVE [facility] Comment on above: Performed By: #### U AMIC ####[facility] Nxftefjdox[address] [place], [place] [address]Dr. Villa Yanes MUCOUS NONE SEEN Normal NONE SEEN [facility] Comment on above: Performed By: #### U AMIC ####[facility] Vfrrakipxt[address] [place], [place] [address]Dr. Villa Yanes Nitrite Ql (U) Negative Normal NEGATIVE [facility] Comment on above: Performed By: #### U AMIC ####[facility] Ledizppylt[address] [place], [place] [address]Dr. Villa Yanes pH (U) 7.5 [pH] Normal 5-9 [facility] Comment on above: Performed By: #### U AMIC ####[facility] Mvdkjcbbeq[address] [place] [address]Dr. Villa Yanes RBC NONE SEEN Abnormal 0-2 [facility] Comment on above: Performed By: #### U AMIC ####[facility] Dndiagzhzi58[address] [place] [id number]. Villa Yanes SPEC GRAVITY 1.015 Normal 1.005-<=1.0 25 [facility] Comment on above: Performed By: #### U AMIC ####[facility] Qnmtixywfi8039 [place] [address]Dr. Villa Yanes UA PROTEIN 100 mg/dl Abnormal NEGATIVE/ TRACE [facility] Comment on above: Performed By: #### U AMIC ####[facility] Rztwfhtdwb3166 [place] [address]Dr. Villa Yanes Urobilinogen Qn (U) 0.2 {Mackenzie'U}/dL Normal 0.2 - 1. 0 [facility] Comment on above: Performed By: #### U AMIC ####[facility] Jfpdpfpjuh[address] [place], [place] [address]Dr. Villa Yanes WBC 50-75 Abnormal NONE SEEN [facility] Comment on above: Performed By: #### U AMIC ####[facility] Podeuinivw[address]64 [place] [address]Dr. Villa Yanes CBC AUTO DIFFon 12-18-2021 BASO # 0.1 103/ul Normal 0.0-0.1 [facility] Comment on above: Performed By: #### C BC ####[facility] Vblkyqoqwo13[address] [place], [place] [address]Dr. Villa Yanes Basophils/100 WBC (Bld) 0.7 % Normal 0.2-2.0 [facility] Comment on above: Performed By: #### C BC ####[facility] Rziyvdhghg[address] [place], [place] [address]Dr. Villa Yanes EO # 0.6 103/ul Normal 0.0-0.7 [facility] Comment on above: Performed By: #### C BC ####[facility] Pkpualvlmy7334 [place] [id number]. Villa Yanes Eosinophils/100 WBC (Bld) 4.0 % Normal 0.9-7.0 [facility] Comment on above: Performed By: #### C BC ####[facility] Kcaljcdhrf38[address] [place] [address]Dr. Villa Yanes Erythrocyte distribution width (RBC) [Ratio] 13.9 % Normal 11.0-15.0 [facility] Comment on above: Performed By: #### C BC ####[facility] Wivxlincun[address] [place], [place] [address]Dr. Villa Yanes Hematocrit (Bld) [Volume fraction] 33.4 % Critically low 42.0-54.0 [facility] Comment on above: Performed By: #### C BC ####[facility] Lad[address]yxn[address] [place], [place] [address]Dr. Villa Yanes Hemoglobin (Bld) [Mass/Vol] 11.1 g/dL Critically low 14.0-18.0 [facility] Comment on above: Performed By: #### C BC ####[facility] Stinuslake[address] [place], [place] [address]Dr. Villa Yanes IG # 0.15 10e3/ul Critically high 0.00-0.03 [facility] Comment on above: Performed By: #### C BC ####[facility] Rympxedahw[address] [place], [place] [address]Dr. Villa Yanes IG % 1.0 % Critically high 0.0-0.5 [facility] Comment on above: Performed By: #### C BC ####[facility] Vdgieijise[address] [place], [place] [address]Dr. Villa Yanes LYMPH # 1.9 103/ul Normal 1.2-3.8 [facility] Comment on above: Performed By: #### C BC ####[facility] Llockwwpfr[address] [place], [place] [address]Dr. Villa Yanes Lymphocytes/100 WBC (Bld) 12.2 % Critically low 20.5-60.0 [facility] Comment on above: Performed By: #### C BC ####[facility] Pzcnmkwcbj[address] [place] [address]Dr. Villa Yanes MANUAL DIFF REQ NO Normal [facility] Comment on above: Performed By: #### C BC ####[facility] Grapqwqbng50[address] [place] [id number]. Villa Yanes MCH (RBC) [Entitic mass] 31.3 pg Normal 25.9-34.0 [facility] Comment on above: Performed By: #### C BC ####[facility] Fvzamyvzrb6[address] [place] [address]Dr. Villa Yanes MCHC (RBC) [Mass/Vol] 33.2 g/dL Normal 29.9-35.2 [facility] Comment on above: Performed By: #### C BC ####[facility] Fdwjpfrwyf[address] [place], [place] [address]Dr. Villa Yanes MCV (RBC) [Entitic vol] 94.1 fL Critically high 80.0-94.0 [facility] Comment on above: Performed By: #### C BC ####[facility] Ncjmgerios[address] [place], [place] [address]DrBrenden Yanes MONO # 0.9 103/ul Critically high 0.3-0.8 [facility] Comment on above: Performed By: #### C BC ####[facility] Vwyilqootu[address] [place], [place] [address]Dr. Villa Yanes Monocytes/100 WBC (Bld) 5.9 % Normal 1.7-12.0 [facility] Comment on above: Performed By: #### C BC ####[facility] Vpvtxjtchw[address] [place], [place] [address]DrBrenden Yanes NEUT # 12.0 103/ul Critically high 1.4-6.5 [facility] Comment on above: Performed By: #### C BC ####[facility] Bvbhpfrazz[address] [place], [place] [address]DrBrenden Yanes Neutrophils/100 WBC (Bld) 76.2 % Critically high 43.0-75.0 [facility] Comment on above: Performed By: #### C BC ####[facility] [address]vkjmbhjdy[address] [place] [address]Dr. Villa Yanes Platelet mean volume (Bld) [Entitic vol] 9.8 fL Normal 9.5-13.5 [facility] Comment on above: Performed By: #### C BC ####[facility] Npwkuqvlnb77[address] [place] [address]Dr. Villa Yanes PLT 397 103/ul Normal 150-450 [facility] Comment on above: Performed By: #### C BC ####[facility] Onxpmjhmci[address] [place] [address]Dr. Villa Yanes RBC 3.55 106/ul Critically low 4.70-6.10 [facility] Comment on above: Performed By: #### C BC ####[facility] Vzzoakeemq633911 [address] [place], [place] [address]DrBrenden Villa Joaquín WBC 15.7 103/ul Critically high 4.0-11.0 [facility] Comment on above: Performed By: #### C BC ####[facility] Ssacktxnrs6621 [place] [address]DrBrenden Villa Yanes GLYCOHEMOGLOBIN A1Con 2021 ADA RECOMMENDATION SEE BELOW Normal [facility] Comment on above: Result Comment: ADA RECOMMENDED LIMIT 4.0 - 6.0 ADA THERAPEUTIC TARGET < 7.0 ACTION SUGGESTED > 7.0 Performed By: #### A 1C ####[facility] Kdawpixadb6912 [place] [address]DrBrenden Villa Joaquín Glucose [Mass/Vol] 134 mg/dL Normal [facility] Comment on above: Performed By: #### A 1C ####[facility] Dtcxeumzco6308 [place] [address]DrBrenden Villa Joaquín HbA1c (Bld) [Mass fraction] 6.3 % Critically high 4.5-6.2 [facility] Comment on above: Performed By: #### A 1C ####[facility] Zhbclickhb[address] [place], [place] [address]DrBrenden Yikaren Yanes MAGNESIUMon 12-18-2021 Magnesium [Mass/Vol] 2.2 mg/dL Normal 1.8-2.4 [facility] Comment on above: Performed By: #### NICHOL HartS, TSH, CMP ####[facility] Fbsxnmoxdf6924 [place] [address]Dr. Villa Yanes PHOSPHORUSon 12-18-2021 Phosphate [Mass/Vol] 3.6 mg/dL Normal 2.6-4.7 [facility] Comment on above: Performed By: #### Dick Bell, PHOS, TSH, CMP ####[facility] Rxpoudpbzh4712 [place] [address]Dr. Villa Yanes PROF 14(COMP METB)on 022 Albumin [Mass/Vol] 3.2 g/dL Critically low 3.4-5.0 [facility] Comment on above: Performed By: #### Dick Bell PHOS, TSH, CMP ####[facility] Qcihayyqcg8366 [place] [address]Dr. Villa Yanes Albumin/Globulin [Mass ratio] 0.8 {ratio} Normal [facility] Comment on above: Performed By: #### Dick Bell PHOS, TSH, CMP ####[facility] Eaiattsfxa5[address] [place], [place] [address]Dr. Villa Yanes ALP [Catalytic activity/Vol] 141 U/L Critically high 46-116 [facility] Comment on above: Performed By: #### Dick Bell, PHOS, TSH, CMP ####[facility] Kwhroeynmm1391 [place] [address]Dr. Villa Yanes ALT [Catalytic activity/Vol] 8 U/L Critically low 16-63 [facility] Comment on above: Performed By: #### Dick Bell, PHOS, TSH, CMP ####[facility] Raaubperfk9336 [place] [address]Dr. Villa Yanes Anion gap [Moles/Vol] 13.1 mmol/L Normal [facility] Comment on above: Performed By: #### Dick Bell, PHOS, TSH, CMP ####[facility] Wgdonzpkuf6328 [place] [address]Dr. Villa Yanes AST [Catalytic activity/Vol] 5 U/L Critically low 15-37 [facility] Comment on above: Performed By: #### Dick Bell, PHOS, TSH, CMP ####[facility] Mqyhtnxkbq2484 [place] [address]Dr. Villa Yanes Bilirubin [Mass/Vol] 0.3 mg/dL Normal 0.2-1.0 [facility] Comment on above: Performed By: #### Dick Bell, PHOS, TSH, CMP ####[facility] Yuddzviamr[address] [place], [place] [address]Dr. Villa Yanes Calcium [Mass/Vol] 9.3 mg/dL Normal 8.5-10.1 [facility] Comment on above: Performed By: #### Dick Bell, PHOS, TSH, CMP ####[facility] Ikfzdfypur75[address] [place], [place] [address]Dr. Villa Yanes Chloride [Moles/Vol] 102 mmol/L Normal 98-107 [facility] Comment on above: Performed By: #### Dick Bell, PHOS, TSH, CMP ####[facility] Zlqthcuvlz0564 [place] [address]Dr. Villa Yanes CO2 [Moles/Vol] 28.8 mmol/L Normal 21.0-32.0 [facility] Comment on above: Performed By: #### Dick Bell, PHOS, TSH, CMP ####[facility] Rvhcthiuyp7087[address] [place], [place] [address]Dr. Villa Yanes Creatinine [Mass/Vol] 1.20 mg/dL Normal 0.70-1.30 [facility] Comment on above: Performed By: #### Dick Bell, PHOS, TSH, CMP ####[facility] Lohtnfwrts2134 [place] [address]Dr. Villa Yanes EGFR-AF BELIZEAN >60 Normal >=60 [facility] Comment on above: Performed By: #### Dick G, PHOS, TSH, CMP ####[facility] Hkqzwvsqrz0292 [place] [address]Dr. Brooklynkaren Joaquín EGFR-NON AF BELIZEAN 58 mL/min/1.73m2 Critically low >=60 [facility] Comment on above: Performed By: #### M Arabella, PHOS, TSH, CMP ####[facility] Cdlydlvvhu9842 [place] [address]Dr. Villa Yanes Globulin (S) [Mass/Vol] 4.0 g/dL Normal [facility] Comment on above: Performed By: #### M Arabella, PHOS, TSH, CMP ####[facility] Ldokdhmhwu57[address] [place], [place] [address]Dr. Villa Yanes Glucose [Mass/Vol] 143 mg/dL Critically high 74-106 [facility] Comment on above: Performed By: #### Dick Bell, PHOS, TSH, CMP ####[facility] Kdlcixvmks7[address] [place], [place] [address]Dr. Villa Yanes Potassium [Moles/Vol] 4.9 mmol/L Normal 3.5-5.1 [facility] Comment on above: Performed By: #### Dick Bell, PHOS, TSH, CMP ####[facility] Lgrlxlfbir88[address] [place], [place] [address]Dr. Brooklynlan Yanes Protein [Mass/Vol] 7.2 g/dL Normal 6.4-8.2 [facility] Comment on above: Performed By: #### M Arabella, PHOS, TSH, CMP ####[facility] Xnvnnthrka7337[address] [place], [place] [address]Dr. Villa Yanes Sodium [Moles/Vol] 139 mmol/L Normal 136-145 [facility] Comment on above: Performed By: #### M G, PHOS, TSH, CMP ####[facility] Lztjliksqe30[address] [place], [place] [address]Dr. Brooklynlan Yanes Urea nitrogen [Mass/Vol] 46.0 mg/dL Critically high 7.0-18.0 [facility] Comment on above: Performed By: #### M G, PHOS, TSH, CMP ####[facility] Fsrwsobajx8801 [place] [address]Dr. Villa Yanes Urea nitrogen/Creatinine [Mass ratio] 38.3 mg/mg Normal [facility] Comment on above: Performed By: #### M G, PHOS, TSH, CMP ####[facility] Piljefkcai4847 [place], [place] [address]Ig. Villa Yanes TSHon 12-18-2021 TSH 0.279 uIU/mL Critically low 0.358-3.740 [facility] Comment on above: Performed By: #### M G, PHOS, TSH, CMP ####[facility] Nrauzruxuh8031 [place], [place] [address]. [address] CT KIDNEY WO/W IVCONon 12-04 Radiology Result ACTIONABLE Abnormal [facility] Echocardiogramon 11-04-[address], [address], [place] [address] TRANSTHORACIC ECHOCARDIOGRAM REPORT Patient Name: FRANKI Glynn Physician: [id number] Glenn HERNANDEZ MD Study Date: 11/04/2021 Referring Physician: [id number] LAURO COLLINS MRN/PID: [id number] PCP: Micheal Gutiérrez Accession/Order#: [id number] Department Location: [facility] Date of : 1940 Fellow: Gender: M Nurse: Admit Date: Market Asset Protection Manager: Zeenat Trejo RD, T Height: 180.34 cm CC Report to: Weight: 68.04 kg Study Type: Echocardiogram BSA: 1.87 m2 Blood Pressure: 142 /70 mmHg Diagnosis/ICD: R07.89-Other chest pain; I25.5-Ischemic cardiomyopathy Indication: Hyperlipidemia, CAD, PA and PTCA-06/2021, CHF, COPD, Tobacco Abuse, Peripheral Vascular Disease, Right SFA Stent Procedure/CPT: Echo Complete w Full Doppler-12120 Study Detail: The following Echo studies were [...] 1.3 m/s (0.6-0.9m/s) PV Max P.7 mmHg [id number] Glenn Kapoor MD Electronically signed on 11/05/2021 at 9:06:54 AM Final Normal [facility] VASC LAB PVR W/O EXERCISEon 11-04-2021 VASC LAB PVR W/O EXERCISE [address], [address] [place] [address] Vascular Lab Report PVR With Out Exercise Patient Name: FRANKI Maki Physician: [id number] Saige Bassett MD, [facility] Study Date: 11/04/2021 Referring [id number] LAURO COLLINS Physician: MRN/PID: [id number] PCP: Micheal Gutiérrez Accession/Order#: [id number] CC Report to: Date of : 1940 Technologist: Zeenat Trejo RDCS, T Gender: M Technologist 2: Admission Status: Outpatient Location Performed: [facility] Diagnosis/ICD: I73.9-Peripheral vascular disease, unspecified Indication: Hyperlipidemia, CAD, PA and PTCA-06/2021, Chest Discomfort, CHF, COPD, Tobacco Abuse, Right SFA Stent Procedure/CPT: 31774 Peripheral artery PVR (multi segmental pressure)-93659 CONCLUSIONS: Right Lower PVR: There is evidence [...] Left Brachial Pressure 138 mmHg 132 mmHg [id number] Saige Bassett MD, FACC Final Normal [facility] VASC LAB PVR W/O EXERCISE -[facility]-Sandu marika 250 DO Work Phone: GI PANEL (PCR)on 10-28-2021 Adenovirus F 40/41 Not detected Normal NOT DETECTED [facility] Comment on above: Performed By: #### G IPANEL ####[facility] Dtplyglzzj3260 [place] [address]DrBrenden Yanes Astrovirus Not detected Normal NOT DETECTED [facility] Comment on above: Performed By: #### G IPANEL ####[facility] Kqeagflfqx2884 [place] [address]DrBrenden Kaiser. Diff toxin A/B Not detected Normal NOT DETECTED [facility] Comment on above: Performed By: #### G IPANEL ####[facility] Mtcbammojj2809 [place] [address]DrBrenden Yanes Campylobacter Not detected Normal NOT DETECTED [facility] Comment on above: Performed By: #### G IPANEL ####[facility] Apyurqqizg[address] [place], [place] [address]Dr. Villa Yanes Cryptosporidium Not detected Normal NOT DETECTED [facility] Comment on above: Performed By: #### G IPANEL ####[facility] Vuqoxwnzvs[address] [place], [place] [address]Dr. Villa Yanes Cyclos. Cayetanensis Not detected Normal NOT DETECTED [facility] Comment on above: Performed By: #### G IPANEL ####[facility] Ybmdorbnmr[address] [place], [place] [address]Dr. Villa [facility] E. Coli O157 Not Applicable Normal Not Applicable [facility] Comment on above: Performed By: #### G IPANEL ####[facility] Ajhglzntnl2147[address] [place], [place] [address]Dr. Villa Yanes E. histolytica Not detected Normal NOT DETECTED [facility] Comment on above: Performed By: #### G IPANEL ####[facility] Lnjasxnxid0876[address] [place], [place] [address]Dr. Villa Yanes EAEC Not detected Normal NOT DETECTED [facility] Comment on above: Performed By: #### G IPANEL ####[facility] Idqkdexnfp[address] [place], [place] [address]Dr. Villa Yanes EIEC Not detected Normal NOT DETECTED [facility] Comment on above: Performed By: #### G IPANEL ####[facility] Lwetovnypf[address] [place], [place] [address]Dr. Villa Yanes EPEC Not detected Normal NOT DETECTED [facility] Comment on above: Performed By: #### G IPANEL ####[facility] Hbpdoefqir4397[address] [place], [place] [address]Dr. Villa Yanes ETEC Not detected Normal NOT DETECTED [facility] Comment on above: Performed By: #### G IPANEL ####[facility] Ojhzyoonan3452[address] [place], [place] [address]Dr. Villa Yanes G. Lamblia Not detected Normal NOT DETECTED [facility] Comment on above: Performed By: #### G IPANEL ####[facility] Brnxqbjddg1759 [place] [id number]. Villa Yanes GIPANEL CONTROLS PASSED Normal [facility] Comment on above: Performed By: #### G IPANEL ####[facility] Kaqdmrxxni9054 [place] [id number]. Villa Yanes [facility] M[facility] HEADER GI PANEL BACTERIA Normal [facility] Comment on above: Performed By: #### G IPANEL ####[facility] Oypdqaczgm3386 [place] [address]Dr. Villa Yanes [facility] ECOLI GI PANEL DIARRHEAGEN IC E.COLI / SHIGELLA Normal [facility] Comment on above: Performed By: #### G IPANEL ####[facility] Mkqqpejwna15[address] [place], [place] [address]Dr. Villa Yanes GIPNLHD INFO SEE BELOW Normal [facility] Comment on above: Result Comment: EAEC - Enteroaggregative E. Coli EPEC- Enteropathogenic E. Coli ETEC- Enterotoxigenic E. Coli lt/st STEC- Shigella-like toxin-producing E. Coli stx1/stx2 EIEC- Shigella/Enteroinvasive E. Coli Performed By: #### G IPANEL ####[facility] Jzvnexgyun6875[address] [place], [place] [address]Dr. Villa Yanes GIPNLHD PARASITES GI PANEL PARASITES Normal [facility] Comment on above: Performed By: #### G IPANEL ####[facility] Wouhcptiou7617[address] [place], [place] [address]Dr. Villa Yanes GIPNLHD VIRUS GI PANEL VIRUSES Normal [facility] Comment on above: Performed By: #### G IPANEL ####[facility] Rapshappza5427[address] [place], [place] [address]Dr. Villa Yanes Norovirus GI/GII Not detected Normal NOT DETECTED [facility] Comment on above: Performed By: #### G IPANEL ####[facility] Xpihqccdto[address] [place], [place] [address]Dr. [facility] Yanes P. Shigelloides Not detected Normal NOT DETECTED [facility] Comment on above: Performed By: #### G IPANEL ####[facility] Dbpdksksip237[address] [place], [place] [address]Dr. Villa Yanes Rotavirus A Not detected Normal NOT DETECTED [facility] Comment on above: Performed By: #### G IPANEL ####[facility] Rqjzmfndgz6[address] [place], [place] [address]Dr. Villa Yanes Salmonella Not detected Normal NOT DETECTED [facility] Comment on above: Performed By: #### G IPANEL ####[facility] Nalnjghtqj4[address] [place], [place] [address]Dr. Villa Yanes Sapovirus Not detected Normal NOT DETECTED [facility] Comment on above: Performed By: #### G IPANEL ####[facility] Slwnbgqlat1209[address] [place], [place] [address]Dr. Villa Yanes STEC Not detected Normal NOT DETECTED [facility] Comment on above: Performed By: #### G IPANEL ####[facility] Lhnharrkfs86[address] [place], [place] [address]Dr. Villa Yanes Vibrio Not detected Normal NOT DETECTED [facility] Comment on above: Performed By: #### G IPANEL ####[facility] Pwysuxnsji[address] [place], [place] [address]Dr. Villa Yanes Vibrio Cholera Not detected Normal NOT DETECTED [facility] Comment on above: Performed By: #### G IPANEL ####[facility] Plcgwjxogg7718[address] [place], [place] [address]Dr. Villa Yanes Y. Enterocolitica Not detected Normal NOT DETECTED [facility] Comment on above: Performed By: #### G IPANEL ####[facility] Fwjypfknyh9[address] [place], [place] [address]Dr. Villa Yanes BNPon 10-13-2021 Natriuretic peptide B (Bld) [Mass/Vol] 2844.0 pg/mL Critically high <=1,800.0 [facility] Comment on above: Result Comment: Test Repeated Critical Value Verified Performed By: #### C MP, BNP ####[facility] Cdelnhusnt9[address] [place], [place] [address]Dr. Villa Yanes CBC AUTO DIFFon 10-13-2021 BASO # 0.1 103/ul Normal 0.0-0.1 [facility] Comment on above: Performed By: #### C BC ####[facility] Yfhhouaurw4752 [place] [address]Dr. Villa Yanes Basophils/100 WBC (Bld) 0.8 % Normal 0.2-2.0 [facility] Comment on above: Performed By: #### C BC ####[facility] Vstcbcxuyu27[address] [place], [place] [address]DrBrenden Yanes EO # 0.9 103/ul Critically high 0.0-0.7 [facility] Comment on above: Performed By: #### C BC ####[facility] Bvccyfissq4906[address] [place], [place] [address]Dr. Villa Yanes Eosinophils/100 WBC (Bld) 7.8 % Critically high 0.9-7.0 [facility] Comment on above: Performed By: #### C BC ####[facility] Qhgwqimbxr4547[address] [place], [place] [address]Dr. Villa Yanes Erythrocyte distribution width (RBC) [Ratio] 13.1 % Normal 11.0-15.0 [facility] Comment on above: Performed By: #### C BC ####[facility] Sluzfxcscy3255[address] [place], [place] [address]Dr. Villa Yanes Hematocrit (Bld) [Volume fraction] 29.3 % Critically low 42.0-54.0 [facility] Comment on above: Performed By: #### C BC ####[facility] Frtwiiyjhp128[address] [place], [place] [address]Dr. Villa Yanes Hemoglobin (Bld) [Mass/Vol] 9.3 g/dL Critically low 14.0-18.0 [facility] Comment on above: Performed By: #### C BC ####[facility] Ogjwvmgosy[address] [place], [place] [address]DrBrenden Yanes IG # 0.18 10e3/ul Critically high 0.00-0.03 [facility] Comment on above: Performed By: #### C BC ####[facility] Lzhahlznlv3429[address] [place], [place] [address]Dr. Villa Yanes IG % 1.5 % Critically high 0.0-0.5 [facility] Comment on above: Performed By: #### C BC ####[facility] Wayarbspka6853 [place] [address]DrBrenden Villa Joaquín LYMPH # 1.7 103/ul Normal 1.2-3.8 [facility] Comment on above: Performed By: #### C BC ####[facility] Eaxtjxmsqm4241 [place] [address]DrBrenden Yanes Lymphocytes/100 WBC (Bld) 14.7 % Critically low 20.5-60.0 [facility] Comment on above: Performed By: #### C BC ####[facility] Poldafnmsh[address] [place], [place] [address]DrBrenden Yanes MANUAL DIFF REQ NO Normal [facility] Comment on above: Performed By: #### C BC ####[facility] Qregnjqvlc7[address] [place], [place] [address]DrBrenden Brooklynkaren Yanes MCH (RBC) [Entitic mass] 30.1 pg Normal 25.9-34.0 [facility] Comment on above: Performed By: #### C BC ####[facility] Imkdmouixj5053[address] [place], [place] [address]DrBrenden Villa Joaquín MCHC (RBC) [Mass/Vol] 31.7 g/dL Normal 29.9-35.2 [facility] Comment on above: Performed By: #### C BC ####[facility] Oemmceqckn[address] [place], [place] [address]DrBrenden Brooklynkaren Yanes MCV (RBC) [Entitic vol] 94.8 fL Critically high 80.0-94.0 [facility] Comment on above: Performed By: #### C BC ####[facility] Tfrsxhlwqg32[address] [place], [place] [address]DrBrenden Yanes MONO # 0.7 103/ul Normal 0.3-0.8 [facility] Comment on above: Performed By: #### C BC ####[facility] Uytetgtcod5667[address] [place], [place] [address]DrBrenden Yanes Monocytes/100 WBC (Bld) 6.1 % Normal 1.7-12.0 [facility] Comment on above: Performed By: #### C BC ####[facility] Fnxzqfdtws4594 [place] [address]Dr. Villa Yanes NEUT # 8.1 103/ul Critically high 1.4-6.5 [facility] Comment on above: Performed By: #### C BC ####[facility] Xlcpolheko7064 [place] [address]Dr. Villa Yanes Neutrophils/100 WBC (Bld) 69.1 % Normal 43.0-75.0 [facility] Comment on above: Performed By: #### C BC ####[facility] Mvxflpifqu5597 [place] [address]Dr. Villa Yanes Platelet mean volume (Bld) [Entitic vol] 9.7 fL Normal 9.5-13.5 [facility] Comment on above: Performed By: #### C BC ####[facility] Eehrnvxiib2566 [place] [address]Dr. Villa Yaens PLT 408 103/ul Normal 150-450 [facility] Comment on above: Performed By: #### C BC ####[facility] Z[address]vwtqmxe[address] [place], [place] [address]Dr. Villa Yanes RBC 3.09 106/ul Critically low 4.70-6.10 [facility] Comment on above: Performed By: #### C BC ####[facility] Ieieyrwkyq8809 [place] [address]Dr. Villa Yanes WBC 11.7 103/ul Critically high 4.0-11.0 [facility] Comment on above: Performed By: #### C BC ####[facility] X[address]xgryjh[address] [place], [place] [address]DrBrenden Villa Joaquín POINT OF CARE GLUCOSEon 05-2 Glucose [Mass/Vol] 216 mg/dL Critically high 74-106 T [facility] Comment on above: Performed By: #### P OCGLUC ####[facility] Zjzgvcgdqj16[address] [place], [place] [address]Dr. Villa Yanes Glucose [Mass/Vol] 217 mg/dL Critically high 74-106 [facility] Comment on above: Performed By: #### P OCGLUC ####[facility] Amsxtzdgzg4628 [place] [address]Dr. Villa Yanes PROF 14(COMP METB)on 022 Albumin [Mass/Vol] 2.0 g/dL Critically low 3.4-5.0 [facility] Comment on above: Performed By: #### C MP, BNP ####[facility] Iywqulmcwx4184 [place] [address]Dr. Villa Yanes Albumin/Globulin [Mass ratio] 0.5 {ratio} Normal [facility] Comment on above: Performed By: #### C MP, BNP ####[facility] Swocepwwnh4878 [place] [address]Dr. Villa Yanes ALP [Catalytic activity/Vol] 122 U/L Critically high 46-116 [facility] Comment on above: Performed By: #### C MP, BNP ####[facility] Togglsmxvg7024 [place] [address]Dr. Villa Yanes ALT [Catalytic activity/Vol] 12 U/L Critically low 16-63 [facility] Comment on above: Performed By: #### C MP, BNP ####[facility] Lxobtuadir1215 [place] [address]Dr. Villa Yanes Anion gap [Moles/Vol] 11.6 mmol/L Normal [facility] Comment on above: Performed By: #### C MP, BNP ####[facility] Ouzwifsgxn6992 [place] [address]Dr. Villa Yanes AST [Catalytic activity/Vol] 7 U/L Critically low 15-37 [facility] Comment on above: Performed By: #### C MP, BNP ####[facility] Mndlspydxa5192 [place] [address]Dr. Villa Yanes Bilirubin [Mass/Vol] 0.1 mg/dL Critically low 0.2-1.0 [facility] Comment on above: Performed By: #### C MP, BNP ####[facility] Sbeblpklxd0430 [place] [id number]. Villa Yanes Calcium [Mass/Vol] 8.3 mg/dL Critically low 8.5-10.1 [facility] Comment on above: Performed By: #### C MP, BNP ####[facility] Cgolxphkmy1645 [place] [address]Dr. Villa Yanes Chloride [Moles/Vol] 100 mmol/L Normal 98-107 [facility] Comment on above: Performed By: #### C MP, BNP ####[facility] Ohomadrfxr6258 [place] [address]Dr. Villa Yanes CO2 [Moles/Vol] 28.5 mmol/L Normal 21.0-32.0 [facility] Comment on above: Performed By: #### C MP, BNP ####[facility] Deamfzbrsn[address] [place], [place] [address]Dr. Villa Yanes Creatinine [Mass/Vol] 1.13 mg/dL Normal 0.70-1.30 [facility] Comment on above: Performed By: #### C MP, BNP ####[facility] Mrsvkkubcs[address] [place], [place] [address]Dr. Villa Yanes EGFR-AF BELIZEAN >60 Normal >=60 [facility] Comment on above: Performed By: #### C MP, BNP ####[facility] Kmppkoeiiq5[address] [place], [place] [address]Dr. Villa Yanes EGFR-NON AF BELIZEAN >60 Normal >=60 [facility] [facility] Comment on above: Performed By: #### C MP, BNP ####[facility] Efovftwhik[address] [place], [place] [address]Dr. Villa Yanes Globulin (S) [Mass/Vol] 3.7 g/dL Normal [facility] Comment on above: Performed By: #### C MP, BNP ####[facility] Ajdwlvujip[address] [place] [address]Dr. Villa Yanes Glucose [Mass/Vol] 241 mg/dL Critically high 74-106 [facility] Comment on above: Performed By: #### C MP, BNP ####[facility] Dpkcymakaf[address] [place] [address]Dr. Villa Yanes Potassium [Moles/Vol] 4.1 mmol/L Normal 3.5-5.1 [facility] Comment on above: Performed By: #### C MP, BNP ####[facility] Yrqxhhukpl[address] [place], [place] [address]Dr. Villa Yanes Protein [Mass/Vol] 5.7 g/dL Critically low 6.4-8.2 [facility] Comment on above: Performed By: #### C MP, BNP ####[facility] Ejsiakamje[address] [place], [place] [address]Dr. Villa Yanes Sodium [Moles/Vol] 136 mmol/L Normal 136-145 [facility] Comment on above: Performed By: #### C MP, BNP ####[facility] Capfinawae[address] [place], [place] [address]Dr. Villa Yanes Urea nitrogen [Mass/Vol] 29.0 mg/dL Critically high 7.0-18.0 [facility] Comment on above: Performed By: #### C MP, BNP ####[facility] Wltfvanirq[address] [place], [place] [address]Dr. Villa Yanes Urea nitrogen/Creatinine [Mass ratio] 25.7 mg/mg Normal [facility] Comment on above: Performed By: #### C MP, BNP ####[facility] Wjzpmqnbek[address] [place], [place] [address]Dr. Villa Yanes BNPon 10-12-2021 Natriuretic peptide B (Bld) [Mass/Vol] 4274.0 pg/mL Critically high <=1,800.0 [facility] Comment on above: Result Comment: Test Repeated. Critical Value Verified Performed By: #### B RESEARCH ENVIRONMENTAL SCIENTIST, CMP ####[facility] Itktopvdli0[address] [place], [place] [address]Dr. Villa Yanes CBC AUTO DIFFon 10-12-2021 BASO # 0.1 103/ul Normal 0.0-0.1 [facility] Comment on above: Performed By: #### C BC ####[facility] Xpzvtouhoc[address] [place], [place] [address]Dr. Villa Yanes Basophils/100 WBC (Bld) 0.6 % Normal 0.2-2.0 [facility] Comment on above: Performed By: #### C BC ####[facility] Bhxbtazcds[address] [place], [place] [address]Dr. Villa Yanes EO # 0.6 103/ul Normal 0.0-0.7 [facility] Comment on above: Performed By: #### C BC ####[facility] Lburamwvdl24[address] [place], [place] [address]Dr. Villa Yanes Eosinophils/100 WBC (Bld) 4.2 % Normal 0.9-7.0 [facility] Comment on above: Performed By: #### C BC ####[facility] Ftfpmvoqnk[address] [place], [place] [address]Dr. Villa Yanes Erythrocyte distribution width (RBC) [Ratio] 12.9 % Normal 11.0-15.0 [facility] Comment on above: Performed By: #### C BC ####[facility] Kovrdtvdyv[address] [place], [place] [address]Dr. Villa Yanes Hematocrit (Bld) [Volume fraction] 31.5 % Critically low 42.0-54.0 [facility] Comment on above: Performed By: #### C BC ####[facility] Qfmfhgyznf[address] [place], [place] [address]Dr. Villa Yanes Hemoglobin (Bld) [Mass/Vol] 9.9 g/dL Critically low 14.0-18.0 [facility] Comment on above: Performed By: #### C BC ####[facility] Enbyywxohj[address] [place], [place] [address]Dr. Villa Yanes IG # 0.10 10e3/ul Critically high 0.00-0.03 [facility] Comment on above: Performed By: #### C BC ####[facility] Lehblktdwi25[address] [place], [place] [address]Dr. Villa Yanes IG % 0.7 % Critically high 0.0-0.5 [facility] Comment on above: Performed By: #### C BC ####[facility] S[address]rmvdvuu[address] [place] [id number]. Villa Joaquín LYMPH # 1.9 103/ul Normal 1.2-3.8 [facility] Comment on above: Performed By: #### C BC ####[facility] Sxcsxaeafz20[address] [place] [address]Dr. Villa Joaquín Lymphocytes/100 WBC (Bld) 13.2 % Critically low 20.5-60.0 [facility] Comment on above: Performed By: #### C BC ####[facility] Gvattvlbvm5097 [place] [address]Dr. Brooklynkaren Yanes MANUAL DIFF REQ NO Normal [facility] Comment on above: Performed By: #### C BC ####[facility] Pdmsyezufv9785 [place] [address]Dr. Villa Joaquín MCH (RBC) [Entitic mass] 30.1 pg Normal 25.9-34.0 [facility] Comment on above: Performed By: #### C BC ####[facility] Zjzpfmpnst[address] [place], [place] [address]Dr. Villa Joaquín MCHC (RBC) [Mass/Vol] 31.4 g/dL Normal 29.9-35.2 [facility] Comment on above: Performed By: #### C BC ####[facility] Incxtcpxnh8270 [place] [address]Dr. Brooklynkaren Yanes MCV (RBC) [Entitic vol] 95.7 fL Critically high 80.0-94.0 [facility] Comment on above: Performed By: #### C BC ####[facility] Pystsdjkry6738 [place] [address]Dr. Brooklynkaren Yanes MONO # 0.8 103/ul Normal 0.3-0.8 [facility] Comment on above: Performed By: #### C BC ####[facility] Sztcpjtjgj[address] [place], [place] [address]Dr. Brooklynkaren Yanes Monocytes/100 WBC (Bld) 5.3 % Normal 1.7-12.0 [facility] Comment on above: Performed By: #### C BC ####[facility] Gguachmcbc5341 [place] [id number]. Villa Yanes NEUT # 10.9 103/ul Critically high 1.4-6.5 [facility] Comment on above: Performed By: #### C BC ####[facility] Zayyjdqkzw55[address] [place] [address]Dr. Villa Yanes Neutrophils/100 WBC (Bld) 76.0 % Critically high 43.0-75.0 [facility] Comment on above: Performed By: #### C BC ####[facility] Mdlmifwgwf6893 [place] [address]Dr. Villa Yanes Platelet mean volume (Bld) [Entitic vol] 9.6 fL Normal 9.5-13.5 [facility] Comment on above: Performed By: #### C BC ####[facility] Oqkvyfkxms53[address] [place] [address]Dr. Villa Yanes PLT 372 103/ul Normal 150-450 [facility] Comment on above: Performed By: #### C BC ####[facility] Mujliunjht[address] [place], [place] [address]Dr. Villa Yanes RBC 3.29 106/ul Critically low 4.70-6.10 [facility] Comment on above: Performed By: #### C BC ####[facility] Luohehfkqk9[address] [place] [address]Dr. Villa Yanes WBC 14.3 103/ul Critically high 4.0-11.0 [facility] Comment on above: Performed By: #### C BC ####[facility] Vruzsskgbf20[address] [place] [address]Dr. Villa Yanes POINT OF CARE GLUCOSEon 05-2 -2021 Glucose [Mass/Vol] 196 mg/dL Critically high 74-106 [facility] Comment on above: Performed By: #### P OCGLUC ####[facility] Ernjmlvweu[address] [place], [place] [address]Dr. Villa Yanes Glucose [Mass/Vol] 222 mg/dL Critically high 74-106 [facility] Comment on above: Performed By: #### P OCGLUC ####[facility] Aglsddmxsk0477 [place] [address]Dr. Villa Yanes Glucose [Mass/Vol] 215 mg/dL Critically high 74-106 [facility] Comment on above: Performed By: #### P OCGLUC ####[facility] Pscfdkpaho2258 [place] [address]Dr. Villa Yanes Glucose [Mass/Vol] 224 mg/dL Critically high 74-106 [facility] Comment on above: Performed By: #### P OCGLUC ####[facility] Zsmjhldxln0126 [place] [address]Dr. Villa Yanes PROF 14(COMP METB)on 022 Albumin [Mass/Vol] 2.1 g/dL Critically low 3.4-5.0 [facility] Comment on above: Performed By: #### B RESEARCH ENVIRONMENTAL SCIENTIST, CMP ####[facility] Adawjxwxjn6[address] [place], [place] [address]Dr. Villa Yanes Albumin/Globulin [Mass ratio] 0.5 {ratio} Normal [facility] Comment on above: Performed By: #### B RESEARCH ENVIRONMENTAL SCIENTIST, CMP ####[facility] Ieqbetwbst[address] [place], [place] [address]Dr. Villa Yanes ALP [Catalytic activity/Vol] 127 U/L Critically high 46-116 [facility] Comment on above: Performed By: #### B RESEARCH ENVIRONMENTAL SCIENTIST, CMP ####[facility] Jyjnrmyazh[address] [place], [place] [address]Dr. Villa Yanes ALT [Catalytic activity/Vol] 12 U/L Critically low 16-63 [facility] Comment on above: Performed By: #### B RESEARCH ENVIRONMENTAL SCIENTIST, CMP ####[facility] Xdvmyvfzgb1464[address] [place], [place] [address]Dr. Villa Yanes Anion gap [Moles/Vol] 11.4 mmol/L Normal [facility] Comment on above: Performed By: #### B RESEARCH ENVIRONMENTAL SCIENTIST, CMP ####[facility] Hpugaifpwa[address] [place], [place] [address]Dr. Villa Yanes AST [Catalytic activity/Vol] 13 U/L Critically low 15-37 [facility] Comment on above: Performed By: #### B RESEARCH ENVIRONMENTAL SCIENTIST, CMP ####[facility] Avujqzhfdo1290 [place] [address]Dr. Villa Yanes Bilirubin [Mass/Vol] 0.1 mg/dL Critically low 0.2-1.0 [facility] Comment on above: Performed By: #### B RESEARCH ENVIRONMENTAL SCIENTIST, CMP ####[facility] Ykrazulmth[address] [place], [place] [address]Dr. Villa Yanes Calcium [Mass/Vol] 8.8 mg/dL Normal 8.5-10.1 [facility] Comment on above: Performed By: #### B RESEARCH ENVIRONMENTAL SCIENTIST, CMP ####[facility] Hmeihvdbuu99[address] [place], [place] [address]Dr. Villa Yanes Chloride [Moles/Vol] 103 mmol/L Normal 98-107 [facility] Comment on above: Performed By: #### B RESEARCH ENVIRONMENTAL SCIENTIST, CMP ####[facility] Hgbdxmwnur[address] [place], [place] [address]Dr. Villa Yanes CO2 [Moles/Vol] 28.4 mmol/L Normal 21.0-32.0 [facility] Comment on above: Performed By: #### B RESEARCH ENVIRONMENTAL SCIENTIST, CMP ####[facility] Xygxntbeah16[address] [place], [place] [address]Dr. Villa Yanes Creatinine [Mass/Vol] 1.13 mg/dL Normal 0.70-1.30 [facility] Comment on above: Performed By: #### B RESEARCH ENVIRONMENTAL SCIENTIST, CMP ####[facility] Rxnlngefux50[address] [place], [place] [address]Dr. Villa Yanes EGFR-AF BELIZEAN >60 Normal >=60 [facility] Comment on above: Performed By: #### B RESEARCH ENVIRONMENTAL SCIENTIST, CMP ####[facility] Zdnvcnjtsy8[address] [place], [place] [address]Dr. Villa Yanes EGFR-NON AF BELIZEAN >60 Normal >=60 [facility] Comment on above: Performed By: #### B RESEARCH ENVIRONMENTAL SCIENTIST, CMP ####[facility] Toyvbvlhwu22[address] [place], [place] [address]Dr. Villa Yanes Globulin (S) [Mass/Vol] 3.9 g/dL Normal [facility] Comment on above: Performed By: #### B RESEARCH ENVIRONMENTAL SCIENTIST, CMP ####[facility] Sobeyhesrm3522 [place] [address]Dr. Villa Yanes Glucose [Mass/Vol] 151 mg/dL Critically high 74-106 [facility] Comment on above: Performed By: #### B RESEARCH ENVIRONMENTAL SCIENTIST, CMP ####[facility] Bkewzzbhdb5973 [place] [address]Dr. Villa Yanes Potassium [Moles/Vol] 3.8 mmol/L Normal 3.5-5.1 [facility] Comment on above: Performed By: #### B RESEARCH ENVIRONMENTAL SCIENTIST, CMP ####[facility] Moclqhasxp[address] [place], [place] [address]Dr. Villa Yanes Protein [Mass/Vol] 6.0 g/dL Critically low 6.4-8.2 [facility] Comment on above: Performed By: #### B RESEARCH ENVIRONMENTAL SCIENTIST, CMP ####[facility] Mswjcmivui62[address] [place], [place] [address]Dr. Brooklynkaren Yanes Sodium [Moles/Vol] 139 mmol/L Normal 136-145 [facility] Comment on above: Performed By: #### B RESEARCH ENVIRONMENTAL SCIENTIST, CMP ####[facility] I[address]flby[address]seh[address] [place], [place] [address]Dr. Villa Joaquín Urea nitrogen [Mass/Vol] 28.0 mg/dL Critically high 7.0-18.0 [facility] Comment on above: Performed By: #### B RESEARCH ENVIRONMENTAL SCIENTIST, CMP ####[facility] Icsfdpndhe6[address] [place], [place] [address]Dr. Brooklynkaren Joaquín Urea nitrogen/Creatinine [Mass ratio] 24.8 mg/mg Normal [facility] Comment on above: Performed By: #### B RESEARCH ENVIRONMENTAL SCIENTIST, CMP ####[facility] Flnvxzjubp[address] [place], [place] [address]Dr. Villa Yanes BNPon 10-11-2021 Natriuretic peptide B (Bld) [Mass/Vol] 1770.0 pg/mL Normal <=1,800.0 [facility] Comment on above: Performed By: #### C MP, BNP ####[facility] Pdzrvkvbzs[address] [place], [place] [address]Dr. Villa Yanes CBC W MANUAL DIFFon 10-12-19 22 ATYPICAL LYMPH # Normal [facility] Comment on above: Performed By: #### C ESTEFANIA ####[facility] Xrnejgogic9[address] [place] [address]Dr. Villa Yanes ATYPICAL LYMPH % Normal [facility] Comment on above: Performed By: #### C ESTEFANIA ####[facility] Kurtcvmxpz6119 [place] [address]Dr. Villa Yanes BAND # 0.3 103/ul Normal 0.0-0.3 [facility] Comment on above: Performed By: #### C ESTEFANIA ####[facility] Bkjdcyumaz8127 [place] [address]Dr. Villa Yanes BAND % 2 % Normal 0-5 [facility] Comment on above: Performed By: #### C ESTEFANIA ####[facility] Hddpqkchpz[address] [place], [place] [address]Dr. Villa Yanes BASOM # 0.00 103/ul Normal 0.00-0.10 [facility] Comment on above: Performed By: #### C ESTEFANIA ####[facility] Onptfqdxmh[address] [place], [place] [address]Dr. Villa Yanes BASOM % 0.0 % Critically low 0.2-2.0 [facility] Comment on above: Performed By: #### C ESTEFANIA ####[facility] Hgjsiinkiy[address] [place], [place] [address]Dr. Villa Yanes BLAST # Normal [facility] Comment on above: Performed By: #### C ESTEFANIA ####[facility] Kckcelyjfv[address] [place], [place] [address]Dr. Villa Yanes BLAST % Normal [facility] Comment on above: Performed By: #### C ESTEFANIA ####[facility] Xmnijucuuw[address] [place], [place] [address]Dr. Villa Yanes CORRECTED WBC Normal 4.0-11.0 [facility] Comment on above: Performed By: #### C ESTEFANIA ####[facility] Mmqaajaqfn[address] [place], [place] [address]Dr. Villa Yanes EOS # 0.00 103/ul Normal 0.00-0.70 [facility] Comment on above: Performed By: #### C ESTEFANIA ####[facility] Bvpjapcnnn5614 [place] [id number]. Villa Yanes EOS% 0.0 % Critically low 0.9-7.0 [facility] Comment on above: Performed By: #### C ESTEFANIA ####[facility] Nbpmfaeqiz4135 [place] [id number]. Villa Yanes HCT 28.9 % Critically low 42.0-54.0 [facility] Comment on above: Performed By: #### C ESTEFANIA ####[facility] Sgbpwwasev2230 [place] [id number]. Villa Yanes HGB 9.0 g/dl Critically low 14.0-18.0 [facility] Comment on above: Performed By: #### C ESTEFANIA ####[facility] Sxaqiyitud6903 [place] [id number]. Villa Yanes LYMPHM # 0.77 103/ul Critically low 1.20-3.80 [facility] Comment on above: Performed By: #### C ESTEFANIA ####[facility] Ndcvjvismg1110 [place] [id number]. Villa Yanes LYMPHM% 5.0 % Critically low 20.5-60.0 [facility] Comment on above: Performed By: #### C ESTEFANIA ####[facility] Okyrufkysf9154 [place] [id number]. Villa Yanes MCH 29.7 pg Normal 25.9-34.0 [facility] Comment on above: Performed By: #### C ESTEFANIA ####[facility] Bhfksnkoar6598 [place] [id number]. Villa Yanes MCHC 31.1 g/dl Normal 29.9-35.2 [facility] Comment on above: Performed By: #### C ESTEFANIA ####[facility] Jgtflfzfso5712 [place] [id number]. Villa Yanes MCV 95.4 fL Critically high 80.0-94.0 [facility] Comment on above: Performed By: #### C ESTEFANIA ####[facility] Ktup[address]stiix[address] [place], [place] [address]Ik. Villa Yanes METAMYELOCYTE # Normal [facility] Comment on above: Performed By: #### C ESTEFANIA ####[facility] Ulohkoxvsh5782 [place], [place] [address]Xr. Villa Yanes METAMYELOCYTE % Normal [facility] Comment on above: Performed By: #### C ESTEFANIA ####[facility] Qdwgbihpzp2122 [place] [id number]. Villa Yanes MONOM# 0.46 103/ul Normal 0.30-0.80 [facility] Comment on above: Performed By: #### C ESTEFANIA ####[facility] Aiimgdxhwv9994 [place] [id number]. Villa Yanes MONOM% 3.0 % Normal 1.7-12.0 [facility] Comment on above: Performed By: #### C ESTEFANIA ####[facility] Othkitykey9048 [place] [id number]. Villa Yanes MPV 10.1 fL Normal 9.5-13.5 [facility] Comment on above: Performed By: #### Awilda MAC ####[facility] Jakdykggfw0576 [place] [id number]. Villa Yanes MYELOCYTE # Normal [facility] Comment on above: Performed By: #### C ESTEFANIA ####[facility] Dncdwzfrob3849 [place] [id number]. Villa Yanes MYELOCYTE % Normal [facility] Comment on above: Performed By: #### C ESTEFANIA ####[facility] Wqlnoqcfwc1315 [place] [id number]. Villa Yanes NRBC Normal [facility] Comment on above: Performed By: #### C ESTEFANIA ####[facility] Rpcilqrljo9295 [place] [id number]. Villa Yanes PLT 361 103/ul Normal 150-450 [facility] Comment on above: Performed By: #### C ESTEFANIA ####[facility] Fnwuxpxwdy7920 [place], [place] [address]Bv. Villa Yanes RBC 3.03 106/ul Critically low 4.70-6.10 [facility] Comment on above: Performed By: #### Awilda MAC ####[facility] Brbzntofht[address] [place] [id number]. Villa Yanes RDW 12.9 % Normal 11.0-15.0 [facility] Comment on above: Performed By: #### C ESTEFANIA ####[facility] Exgeobnsvj1843 [place] [id number]. Villa Yanes SEG # 13.86 103/ul Critically high 1.40-6.50 [facility] Comment on above: Performed By: #### Awilda MAC ####[facility] Vgmugrfihs3419 [place] [id number]. Villa Yanes SEG % 90.0 % Critically high 43.0-75.0 [facility] Comment on above: Performed By: #### Awilda MAC ####[facility] Potitaxbzr2298 [place] [id number]. Villa Yanes WBC 15.4 103/ul Critically high 4.0-11.0 [facility] Comment on above: Performed By: #### Awilda MAC ####[facility] Azzuzyulur9631 [place] [id number]. Villa Yanes POINT OF CARE GLUCOSEon 05-2 Glucose [Mass/Vol] 214 mg/dL Critically high 74-106 [facility] Comment on above: Performed By: #### P OCGLUC ####[facility] Wqtzhnpbkd7558 [place] [id number]. Villa Yanes Glucose [Mass/Vol] 185 mg/dL Critically high 74-106 [facility] Comment on above: Performed By: #### P OCGLUC ####[facility] Meqosypqwo9646 [place] [id number]. Villa Yanes Glucose [Mass/Vol] 224 mg/dL Critically high 74-106 [facility] Comment on above: Performed By: #### P OCGLUC ####[facility] Vxfenmvlri5847 [place] [address]Dr. Villa Yanes Glucose [Mass/Vol] 273 mg/dL Critically high 74-106 [facility] Comment on above: Performed By: #### P OCGLUC ####[facility] Cufrmnaprt6737 [place] [address]Dr. Villa Yanes PROF 14(COMP METB)on 022 Albumin [Mass/Vol] 1.9 g/dL Critically low 3.4-5.0 [facility] Comment on above: Performed By: #### C MP, BNP ####[facility] Sijddymuoh9918 [place] [address]Dr. Villa Yanes Albumin/Globulin [Mass ratio] 0.5 {ratio} Normal [facility] Comment on above: Performed By: #### C MP, BNP ####[facility] Cocpfvcmrh[address] [place], [place] [address]Dr. Villa Yanes ALP [Catalytic activity/Vol] 153 U/L Critically high 46-116 [facility] Comment on above: Performed By: #### C MP, BNP ####[facility] Jqhgjphjpj2849 [place] [address]Dr. Villa Yanes ALT [Catalytic activity/Vol] 9 U/L Critically low 16-63 [facility] Comment on above: Performed By: #### C MP, BNP ####[facility] Vtqdhfrnme65[address] [place] [address]Dr. Villa Yanes Anion gap [Moles/Vol] 12.0 mmol/L Normal [facility] Comment on above: Performed By: #### C MP, BNP ####[facility] Hcwptwbsbu1630 [place] [address]Dr. Villa Yanes AST [Catalytic activity/Vol] 10 U/L Critically low 15-37 [facility] Comment on above: Performed By: #### C MP, BNP ####[facility] Ufpbrwldev[address] [place], [place] [address]Dr. Villa Yanes Bilirubin [Mass/Vol] 0.1 mg/dL Critically low 0.2-1.0 [facility] Comment on above: Performed By: #### C MP, BNP ####[facility] Sufabxukra4108 [place] [address]Dr. Villa Yanes Calcium [Mass/Vol] 8.4 mg/dL Critically low 8.5-10.1 [facility] Comment on above: Performed By: #### C MP, BNP ####[facility] Foaalseylx[address] [place], [place] [address]Dr. Villa Yanes Chloride [Moles/Vol] 100 mmol/L Normal 98-107 [facility] Comment on above: Performed By: #### C MP, BNP ####[facility] Eecatsbzpd[address] [place], [place] [address]Dr. Villa Yanes CO2 [Moles/Vol] 27.3 mmol/L Normal 21.0-32.0 [facility] Comment on above: Performed By: #### C MP, BNP ####[facility] Tzhgazpmkw[address] [place], [place] [address]Dr. Villa Yanes Creatinine [Mass/Vol] 1.40 mg/dL Critically high 0.70-1.30 [facility] Comment on above: Performed By: #### C MP, BNP ####[facility] Napuwgolqy[address] [place], [place] [address]Dr. Villa Yanes EGFR-AF BELIZEAN 59 mL/min/1.73m2 Critically low >=60 [facility] Comment on above: Performed By: #### C MP, BNP ####[facility] Drrwldddcx[address] [place], [place] [address]Dr. Villa Yanes EGFR-NON AF BELIZEAN 49 mL/min/1.73m2 Critically low >=60 [facility] Comment on above: Performed By: #### C MP, BNP ####[facility] Bnikrrbvho509[address] [place], [place] [address]Dr. Villa Yanes Globulin (S) [Mass/Vol] 4.0 g/dL Normal [facility] Comment on above: Performed By: #### C MP, BNP ####[facility] Ztbyekhnyh[address] [place], [place] [address]Dr. Villa Yanes Glucose [Mass/Vol] 353 mg/dL Critically high 74-106 [facility] Comment on above: Performed By: #### C MP, BNP ####[facility] Llcvzkwnvo7[address] [place], [place] [address]Dr. Villa Yanes Potassium [Moles/Vol] 4.3 mmol/L Normal 3.5-5.1 [facility] Comment on above: Performed By: #### C MP, BNP ####[facility] Xyxuvzmvrt[address] [place], [place] [address]Dr. Villa Yanes Protein [Mass/Vol] 5.9 g/dL Critically low 6.4-8.2 [facility] Comment on above: Performed By: #### C MP, BNP ####[facility] Ozlxxnrpdu5[address] [place], [place] [address]Dr. Brooklynkaren Yanes Sodium [Moles/Vol] 135 mmol/L Critically low 136-145 [facility] Comment on above: Performed By: #### C MP, BNP ####[facility] Msaufdrffp[address] [place], [place] [address]Dr. Villa Yanes Urea nitrogen [Mass/Vol] 39.0 mg/dL Critically high 7.0-18.0 [facility] Comment on above: Performed By: #### C MP, BNP ####[facility] Waaxkphbuq39[address] [place], [place] [address]Dr. Villa Yanes Urea nitrogen/Creatinine [Mass ratio] 27.9 mg/mg Normal [facility] Comment on above: Performed By: #### C MP, BNP ####[facility] Sbshbkewda[address] [place], [place] [address]Dr. Villa Yanes XR CHEST 2 Von 10-11-2021 XR CHEST 2 V Normal [facility] AMMONIAon 10-10-2021 Ammonia (P) [Moles/Vol] 20 umol/L Normal 11-32 [facility] Comment on above: Performed By: #### A MM ####[facility] Svpoiulhxy[address] [place], [place] [address]Dr. Brooklynkaren Yanes BNPon 10-10-2021 Natriuretic peptide B (Bld) [Mass/Vol] 1137.0 pg/mL Normal <=1,800.0 [facility] Comment on above: Performed By: #### C MADM, BNP ####[facility] [address] [place] [address]Dr. Villa Yanes Natriuretic peptide B (Bld) [Mass/Vol] 1263.0 pg/mL Normal <=1,800.0 [facility] Comment on above: Performed By: #### C MP, BNP ####[facility] Mndqtdtxal6[address] [place], [place] [address]Dr. Brooklynkaren Yanes CARDIAC ANAMARIA ADMITon 022 CK [Catalytic activity/Vol] 13 U/L Critically low 39-308 [facility] Comment on above: Performed By: #### C MADM, BNP ####[facility] Kbqvfiopzg9[address] [place], [place] [address]Dr. Villa Yanes CK.MB [Mass/Vol] ng/mL Normal <=3.60 [facility] Comment on above: Performed By: #### C MADM, BNP ####[facility] Wwgusggqay87[address] [place], [place] [address]Dr. Villa Yanes HSTROP 9.1 pg/mL Normal 4.0-76.1 [facility] Comment on above: Result Comment: CUT- OFF POINTS HAVE BEEN ESTABLISHED BASED ON THE FOURTH UNIVERSAL DEFINITIONS OF MYOCARDIALINFARCTION. THE UPPER REFERENCE LIMIT (URL) OF TROPONIN, DEFINED THE 99TH PERCENTILE OFcTnI DISTRIBUTION IN A REFERENCE POPULATION, HAS BEEN CONFIRMED THE DECISION THRESHOLDFOR PA DIAGNOSIS. Performed By: #### C MADM, BNP ####[facility] Uvjjyunscc[address] [place], [place] [address]Dr. Villa Joaquín JULIA 52 ng/mL Normal 16-96 [facility] Comment on above: Performed By: #### C MADM, BNP ####[facility] Cnxynwqyxb9[address] [place], [place] [address]Dr. Villa Yanes CBC AUTO DIFFon 10-10-2021 BASO # 0.1 103/ul Normal 0.0-0.1 [facility] Comment on above: Performed By: #### C BC ####[facility] [address]sh[address] [place] [address]Gn. Villa Yanes Basophils/100 WBC (Bld) 0.3 % Normal 0.2-2.0 [facility] Comment on above: Performed By: #### C BC ####[facility] Rbumldvvdm[address] [place] [address]Dr. Villa Yanes EO # 0.2 103/ul Normal 0.0-0.7 [facility] Comment on above: Performed By: #### C BC ####[facility] Qukmtxuijo27[address] [place], [place] [address]Dr. Villa Yanes Eosinophils/100 WBC (Bld) 1.1 % Normal 0.9-7.0 [facility] Comment on above: Performed By: #### C BC ####[facility] Pubzyaajte[address] [place], [place] [address]Dr. Villa Yanes Erythrocyte distribution width (RBC) [Ratio] 13.2 % Normal 11.0-15.0 [facility] Comment on above: Performed By: #### C BC ####[facility] Nukebseisq5[address] [place], [place] [address]Dr. Villa Yanes Hematocrit (Bld) [Volume fraction] 29.2 % Critically low 42.0-54.0 [facility] Comment on above: Performed By: #### C BC ####[facility] Rlxuptshnl[address] [place], [place] [address]Dr. Villa Yanes Hemoglobin (Bld) [Mass/Vol] 9.3 g/dL Critically low 14.0-18.0 [facility] Comment on above: Performed By: #### C BC ####[facility] Galmmgpozn[address] [place], [place] [address]Dr. Villa Yanes IG # 0.11 10e3/ul Critically high 0.00-0.03 [facility] Comment on above: Performed By: #### C BC ####[facility] Xvyygszquu0[address] [place], [place] [address]Dr. Villa Yanes IG % 0.7 % Critically high 0.0-0.5 [facility] Comment on above: Performed By: #### C BC ####[facility] [address]omvs[address] [place] [id number]. Villa Joaquín LYMPH # 1.0 103/ul Critically low 1.2-3.8 [facility] Comment on above: Performed By: #### C BC ####[facility] Lujdtditop6[address] [place] [id number]. Villa Yanes Lymphocytes/100 WBC (Bld) 6.4 % Critically low 20.5-60.0 [facility] Comment on above: Performed By: #### C BC ####[facility] Dzvlofpoux8[address] [place] [id number]. Villa Joaquín MANUAL DIFF REQ NO Normal [facility] Comment on above: Performed By: #### C BC ####[facility] Xyytzyrccu64[address] [place] [id number]. Villa Joaquín MCH (RBC) [Entitic mass] 30.2 pg Normal 25.9-34.0 [facility] Comment on above: Performed By: #### C BC ####[facility] Svbdnuxevt50[address] [place] [id number]. Villa Yanes MCHC (RBC) [Mass/Vol] 31.8 g/dL Normal 29.9-35.2 [facility] Comment on above: Performed By: #### C BC ####[facility] Cqzgzlssvo5[address] [place] [id number]. Villa Yanes MCV (RBC) [Entitic vol] 94.8 fL Critically high 80.0-94.0 [facility] Comment on above: Performed By: #### C BC ####[facility] Lvwvvjioli7314 [place] [id number]. Villa Joaquín MONO # 0.9 103/ul Critically high 0.3-0.8 [facility] Comment on above: Performed By: #### C BC ####[facility] Dstirlodiw[address] [place] [id number]. Villa Joaquín Monocytes/100 WBC (Bld) 5.4 % Normal 1.7-12.0 [facility] Comment on above: Performed By: #### C BC ####[facility] [address]uzljvsvc[address] [place] [id number]. Villa Yanes NEUT # 13.7 103/ul Critically high 1.4-6.5 [facility] Comment on above: Performed By: #### C BC ####[facility] Rtzdneksnh[address] [place] [id number]. Villa Yanes Neutrophils/100 WBC (Bld) 86.1 % Critically high 43.0-75.0 [facility] Comment on above: Performed By: #### C BC ####[facility] Mfjtiupenv5124 [place] [id number]. Villa Yanes Platelet mean volume (Bld) [Entitic vol] 10.5 fL Normal 9.5-13.5 [facility] Comment on above: Performed By: #### C BC ####[facility] Adyhocojkj[address] [place] [address]Dr. Villa Yanes PLT 293 103/ul Normal 150-450 [facility] Comment on above: Performed By: #### C BC ####[facility] Ubftyseowb37[address] [place] [address]Dr. Villa Yanes RBC 3.08 106/ul Critically low 4.70-6.10 [facility] Comment on above: Performed By: #### C BC ####[facility] Dhvtpywgzf83[address] [place] [address]Dr. Villa Yanes WBC 15.9 103/ul Critically high 4.0-11.0 [facility] Comment on above: Performed By: #### C BC ####[facility] Iixtezxdwl450[address] [place] [address]Dr. Villa Yanes CULTURE URINEon 10-10-2021 CULTURE URINE Culture Observations : No growth Normal [facility] Comment on above: Performed By: #### U RCX ####[facility] Furvfgbmgu12[address] [place] [address]Dr. Villa Yanes POINT OF CARE GLUCOSEon 2 Glucose [Mass/Vol] 214 mg/dL Critically high 74-106 [facility] Comment on above: Performed By: #### P OCGLUC ####[facility] Unsymvufhp0668 [place] [id number]. Villa Yanes Glucose [Mass/Vol] 309 mg/dL Critically high 74-106 [facility] Comment on above: Performed By: #### P OCGLUC ####[facility] Oszeatqvjk[address] [place] [address]Dr. Villa Yanes Glucose [Mass/Vol] 196 mg/dL Critically high 74-106 [facility] Comment on above: Performed By: #### P OCGLUC ####[facility] Gsqgpymonx5107 [place] [address]Dr. Villa Yanes Glucose [Mass/Vol] 185 mg/dL Critically high -106 [facility] Comment on above: Performed By: #### P OCGLUC ####[facility] Yupscndyqq6[address] [place] [address]Dr. Villa Yanes PROF 14(COMP METB)on 022 Albumin [Mass/Vol] 1.7 g/dL Critically low 3.4-5.0 [facility] Comment on above: Performed By: #### C MP, BNP ####[facility] Lrohfnnron[address] [place], [place] [address]Dr. Villa Joaquín Albumin/Globulin [Mass ratio] 0.4 {ratio} Normal [facility] Comment on above: Performed By: #### C MP, BNP ####[facility] Rloecyidpi92[address] [place] [address]Dr. Villa Joaquín ALP [Catalytic activity/Vol] 127 U/L Critically high 46-116 [facility] Comment on above: Performed By: #### C MP, BNP ####[facility] Nbhbtbnage8409 [place] [address]Dr. Villa Joaquín ALT [Catalytic activity/Vol] 6 U/L Critically low 16-63 [facility] Comment on above: Performed By: #### C MP, BNP ####[facility] Lgewizkiqj8982 [place] [address]Dr. Villa Yanes Anion gap [Moles/Vol] 11.6 mmol/L Normal [facility] Comment on above: Performed By: #### C MP, BNP ####[facility] Apubsfqoec72[address] [place] [address]Dr. Villa Yanes AST [Catalytic activity/Vol] 15 U/L Normal 15-37 [facility] Comment on above: Performed By: #### C MP, BNP ####[facility] Kdcwxppxil5638 [place] [address]Dr. Villa Yanes Bilirubin [Mass/Vol] 0.2 mg/dL Normal 0.2-1.0 [facility] Comment on above: Performed By: #### C MP, BNP ####[facility] Axihtwwvrg[address] [place], [place] [address]Dr. Villa Yanes Calcium [Mass/Vol] 8.4 mg/dL Critically low 8.5-10.1 [facility] Comment on above: Performed By: #### C MP, BNP ####[facility] Dcvgyjbzun1562[address] [place], [place] [address]Dr. Villa Yanes Chloride [Moles/Vol] 101 mmol/L Normal 98-107 [facility] Comment on above: Performed By: #### C MP, BNP ####[facility] Xxumeltqjs55[address] [place], [place] [address]Dr. Villa Yanes CO2 [Moles/Vol] 26.3 mmol/L Normal 21.0-32.0 [facility] Comment on above: Performed By: #### C MP, BNP ####[facility] Puusfcpgty[address] [place], [place] [address]Dr. Villa Yanes Creatinine [Mass/Vol] 1.57 mg/dL Critically high 0.70-1.30 [facility] Comment on above: Performed By: #### C MP, BNP ####[facility] Anejmoensj[address] [place], [place] [address]Dr. Villa Yanes EGFR-AF BELIZEAN 52 mL/min/1.73m2 Critically low >=60 [facility] Comment on above: Performed By: #### C MP, BNP ####[facility] Qllkbavhys[address] [place], [place] [address]Dr. Villa Joaquín EGFR-NON AF BELIZEAN 43 mL/min/1.73m2 Critically low >=60 [facility] Comment on above: Performed By: #### C MP, BNP ####[facility] Igzxudrduq036[address] [place], [place] [address]Dr. Villa Yanes Globulin (S) [Mass/Vol] 4.1 g/dL Normal [facility] Comment on above: Performed By: #### C MP, BNP ####[facility] Spsvpnatwq[address] [place], [place] [address]Dr. Brooklynkaren Joaquín Glucose [Mass/Vol] 243 mg/dL Critically high 74-106 [facility] Comment on above: Performed By: #### C MP, BNP ####[facility] Twojjbszva7197[address] [place], [place] [address]Dr. Villa Yanes Potassium [Moles/Vol] 3.9 mmol/L Normal 3.5-5.1 [facility] Comment on above: Performed By: #### C MP, BNP ####[facility] Zwpuibohnn11[address] [place], [place] [address]Dr. Villa Yanes Protein [Mass/Vol] 5.8 g/dL Critically low 6.4-8.2 [facility] Comment on above: Performed By: #### C MP, BNP ####[facility] Ibtgofdrsu7674[address] [place], [place] [address]Dr. Villa Yanes Sodium [Moles/Vol] 135 mmol/L Critically low 136-145 [facility] Comment on above: Performed By: #### C MP, BNP ####[facility] Aycgsfsvir[address] [place], [place] [address]Dr. Villa Joaquín Urea nitrogen [Mass/Vol] 35.0 mg/dL Critically high 7.0-18.0 [facility] Comment on above: Performed By: #### C MP, BNP ####[facility] Zmnslfgpmb[address] [place], [place] [address]Dr. Villa Yanes Urea nitrogen/Creatinine [Mass ratio] 22.3 mg/mg Normal [facility] Comment on above: Performed By: #### C MP, BNP ####[facility] Gaibtepvow[address] [place], [place] [address]Dr. Villa Yanes UA RANDOM W/MICROSCOPICon BACTERIA NONE SEEN Normal NONE SEEN [facility] Comment on above: Performed By: #### U AMIC ####[facility] Uvrzbjiisa1589[address] [place], [place] [address]Dr. Villa Yanes Bilirubin Ql (U) Negative Normal NEGATIVE [facility] Comment on above: Performed By: #### U AMIC ####[facility] Osasjbnqhd96[address] [place], [place] [address]Dr. Villa Yanes CAST NONE SEEN Normal NONE SEEN [facility] Comment on above: Performed By: #### U AMIC ####[facility] Uvzajwokeg[address]25[address] [place], [place] [address]Dr. Villa Yanes Clarity (U) CLEAR Normal CLEAR [facility] Comment on above: Performed By: #### U AMIC ####[facility] Ozzcrdgsqa[address] [place], [place] [address]Dr. Villa Yanes Color (U) YELLOW Normal YELLOW [facility] Comment on above: Performed By: #### U AMIC ####[facility] Ydwoerynat00[address] [place], [place] [address]Dr. Villa Yanes Crystals LM Nom (Urine sed) NONE SEEN Normal NONE SEEN [facility] Comment on above: Performed By: #### U AMIC ####[facility] Bjozcowghr85[address] [place], [place] [address]Dr. Villa Yanes Epithelial cells LM Ql (Urine sed) RARE Normal NONE SEEN /RARE [facility] Comment on above: Performed By: #### U AMIC ####[facility] Rnztwilehm7[address] [place], [place] [address]Dr. Villa Yanes Glucose Ql (U) Negative Normal NEGATIVE [facility] Comment on above: Performed By: #### U AMIC ####[facility] Uekvroumvb1484[address] [place], [place] [address]Dr. Villa Yanes Hemoglobin Ql (U) Negative Normal NEGATIVE [facility] Comment on above: Performed By: #### U AMIC ####[facility] Qphlcrjmqv6[address] [place], [place] [address]Dr. Villa Yanes Ketones Ql (U) Negative Normal NEGATIVE [facility] Comment on above: Performed By: #### U AMIC ####[facility] Cxhwavfzuc4491 [place] [address]Dr. Brooklynkaren Yanes LEUKOCYTES Negative Normal NEGATIVE [facility] Comment on above: Performed By: #### U AMIC ####[facility] Ymlxzdlgcg4368 [place] [address]Dr. Villa Joaquín MUCOUS NONE SEEN Normal NONE SEEN [facility] Comment on above: Performed By: #### U AMIC ####[facility] Hjkfsquelp6634 [place] [address]Dr. Brooklynkaren Yanes Nitrite Ql (U) Negative Normal NEGATIVE [facility] Comment on above: Performed By: #### U AMIC ####[facility] Lolkomvwux[address] [place], [place] [address]Dr. Villa Yanes pH (U) 5.5 [pH] Normal 5-9 [facility] Comment on above: Performed By: #### U AMIC ####[facility] Tnlecyddxb[address]42[address] [place], [place] [address]Dr. Villa Yanes RBC 2-5 Abnormal 0-2 [facility] Comment on above: Performed By: #### U AMIC ####[facility] Zlwxbdphmo[address] [place], [place] [address]Dr. Villa Yanes SPEC GRAVITY 1.025 Normal 1.005-<=1.0 25 [facility] Comment on above: Performed By: #### U AMIC ####[facility] Noawoiqokj[address] [place], [place] [address]Dr. Villa Yanes UA PROTEIN 100 mg/dl Abnormal NEGATIVE/ TRACE [facility] Comment on above: Performed By: #### U AMIC ####[facility] Weejkubmze9[address] [place], [place] [address]Dr. Villa Yanes Urobilinogen Qn (U) 0.2 {Mackenzie'U}/dL Normal 0.2 - 1. 0 [facility] Comment on above: Performed By: #### U AMIC ####[facility] Ktsaleovfp[address] [place], [place] [address]Dr. Villa Yanes WBC NONE SEEN Normal NONE SEEN [facility] Comment on above: Performed By: #### U AMIC ####[facility] Ffwhwfgfth[address] [place], [place] [address]Dr. Villa Yanes BNPon 10-09-2021 Natriuretic peptide B (Bld) [Mass/Vol] 1670.0 pg/mL Normal <=1,800.0 [facility] Comment on above: Performed By: #### B RESEARCH ENVIRONMENTAL SCIENTIST, CMP ####[facility] Detlqulmnm6[address] [place], [place] [address]Dr. Villa Yanes CBC AUTO DIFFon 10-09-2021 BASO # 0.1 103/ul Normal 0.0-0.1 [facility] Comment on above: Performed By: #### C BC ####[facility] Ivvhmqcryj4264[address] [place], [place] [address]Dr. Villa Yanes Basophils/100 WBC (Bld) 0.3 % Normal 0.2-2.0 [facility] Comment on above: Performed By: #### C BC ####[facility] Yowbqbmiyp4[address] [place], [place] [address]Dr. Villa Yanes EO # 0.2 103/ul Normal 0.0-0.7 [facility] Comment on above: Performed By: #### C BC ####[facility] Qfxtrvujck037[address] [place], [place] [address]Dr. Vilal Yanes Eosinophils/100 WBC (Bld) 1.1 % Normal 0.9-7.0 [facility] Comment on above: Performed By: #### C BC ####[facility] Yoqdqyhtdw6485[address] [place], [place] [address]Dr. Villa Yanes Erythrocyte distribution width (RBC) [Ratio] 12.9 % Normal 11.0-15.0 [facility] Comment on above: Performed By: #### C BC ####[facility] Thaletoaug86[address] [place], [place] [address]Dr. Villa Yanes Hematocrit (Bld) [Volume fraction] 32.6 % Critically low 42.0-54.0 [facility] Comment on above: Performed By: #### C BC ####[facility] Rebfbongib4[address] [place] [address]Dr. Villa Yanes Hemoglobin (Bld) [Mass/Vol] 10.4 g/dL Critically low 14.0-18.0 [facility] Comment on above: Performed By: #### C BC ####[facility] Iajlqxlwrr1697 [place] [address]Dr. Villa Yanes IG # 0.13 10e3/ul Critically high 0.00-0.03 [facility] Comment on above: Performed By: #### C BC ####[facility] Frlxbghvlv[address] [place], [place] [address]Dr. Villa Yanes IG % 0.9 % Critically high 0.0-0.5 [facility] Comment on above: Performed By: #### C BC ####[facility] Jyiubptwdm8355[address] [place], [place] [address]Dr. Brooklynkaren Yanes LYMPH # 1.0 103/ul Critically low 1.2-3.8 [facility] Comment on above: Performed By: #### C BC ####[facility] Chrwwetikn34[address] [place], [place] [address]Dr. Brooklynkaren Yanes Lymphocytes/100 WBC (Bld) 6.7 % Critically low 20.5-60.0 [facility] Comment on above: Performed By: #### C BC ####[facility] Rrfdjvrwpf[address] [place], [place] [address]Dr. Brooklynkaren Yanes MANUAL DIFF REQ NO Normal [facility] Comment on above: Performed By: #### C BC ####[facility] Viyypjooim[address] [place], [place] [address]Dr. Villa Yanes MCH (RBC) [Entitic mass] 30.5 pg Normal 25.9-34.0 [facility] Comment on above: Performed By: #### C BC ####[facility] Vykrlyqgna[address] [place], [place] [address]Dr. Villa Yanes MCHC (RBC) [Mass/Vol] 31.9 g/dL Normal 29.9-35.2 [facility] Comment on above: Performed By: #### C BC ####[facility] Aejsnrzvaw5184 [place] [id number]. Villa Yanes MCV (RBC) [Entitic vol] 95.6 fL Critically high 80.0-94.0 [facility] Comment on above: Performed By: #### C BC ####[facility] Vqzravkyph6076 [place] [id number]. Villa Yanes MONO # 0.8 103/ul Normal 0.3-0.8 [facility] Comment on above: Performed By: #### C BC ####[facility] Y[address]wobwthhw[address] [place], [place] [id number]. Villa Yanes Monocytes/100 WBC (Bld) 5.4 % Normal 1.7-12.0 [facility] Comment on above: Performed By: #### C BC ####[facility] Wvvsriplbk[address] [place], [place] [address]Dr. Villa Yanes NEUT # 13.0 103/ul Critically high 1.4-6.5 [facility] Comment on above: Performed By: #### C BC ####[facility] Wnyiryacrj25[address] [place], [place] [address]Dr. Villa Yanes Neutrophils/100 WBC (Bld) 85.6 % Critically high 43.0-75.0 [facility] Comment on above: Performed By: #### C BC ####[facility] Sjklgvkneo65[address] [place], [place] [address]Dr. Villa Yanes Platelet mean volume (Bld) [Entitic vol] 9.8 fL Normal 9.5-13.5 [facility] Comment on above: Performed By: #### C BC ####[facility] Mtpgyjuzsa[address] [place], [place] [id number]. Villa Yanes PLT 299 103/ul Normal 150-450 [facility] Comment on above: Performed By: #### C BC ####[facility] Sycuwaavdr[address] [place], [place] [id number]. Villa Joaquín RBC 3.41 106/ul Critically low 4.70-6.10 [facility] Comment on above: Performed By: #### C BC ####[facility] Zuxemhsatg4003 [place] [id number]. Villa Yanes WBC 15.1 103/ul Critically high 4.0-11.0 [facility] Comment on above: Performed By: #### C BC ####[facility] [address] [place] [address]Dr. Villa Yanes CT ABD/PELV W CONon 10-10-19 CT ABD/PELV W CON Normal [facility] MAGNESIUMon 10-09-2021 Magnesium [Mass/Vol] 2.5 mg/dL Critically high 1.8-2.4 [facility] Comment on above: Performed By: #### NICHOL HartS ####[facility] Btfa[address]vt[address] [place] [address]Dr. Villa Yanes PHOSPHORUSon 10-09-2021 Phosphate [Mass/Vol] 3.8 mg/dL Normal 2.6-4.7 [facility] Comment on above: Performed By: #### PETER Hart ####[facility] Zvflasolii[address] [place], [place] [address]Dr. Villa Yanes POINT OF CARE GLUCOSEon 09-21 Glucose [Mass/Vol] 244 mg/dL Critically high 74-106 [facility] Comment on above: Performed By: #### P OCGLUC ####[facility] Prgyzedzwl[address] [place] [address]Dr. Villa Yanes Glucose [Mass/Vol] 171 mg/dL Critically high 74-106 [facility] Comment on above: Performed By: #### P OCGLUC ####[facility] Ugjiejrlwd60[address] [place] [address]Dr. Villa Yanes Glucose [Mass/Vol] 203 mg/dL Critically high 74-106 [facility] Comment on above: Performed By: #### P OCGLUC ####[facility] Nwtnpxghwv25[address] [place] [address]Dr. Villa Yanes Glucose [Mass/Vol] 171 mg/dL Critically high 74-106 [facility] Comment on above: Performed By: #### P OCGLUC ####[facility] Meajzjboea[address] [place] [address]Dr. Villa Yanes PROF 14(COMP METB)on 022 Albumin [Mass/Vol] 2.0 g/dL Critically low 3.4-5.0 [facility] Comment on above: Performed By: #### B RESEARCH ENVIRONMENTAL SCIENTIST, CMP ####[facility] Uxizcagpbw[address] [place] [address]Dr. Villa Yanes Albumin/Globulin [Mass ratio] 0.5 {ratio} Normal [facility] Comment on above: Performed By: #### B RESEARCH ENVIRONMENTAL SCIENTIST, CMP ####[facility] Snyxmbahda[address] [place], [place] [address]Dr. Villa Yanes ALP [Catalytic activity/Vol] 113 U/L Normal 46-116 [facility] Comment on above: Performed By: #### B RESEARCH ENVIRONMENTAL SCIENTIST, CMP ####[facility] Jioncbqibr[address] [place], [place] [address]Dr. Villa Yanes ALT [Catalytic activity/Vol] 10 U/L Critically low 16-63 [facility] Comment on above: Performed By: #### B RESEARCH ENVIRONMENTAL SCIENTIST, CMP ####[facility] Lymjghtntk[address] [place], [place] [address]Dr. Villa Yanes Anion gap [Moles/Vol] 11.0 mmol/L Normal [facility] Comment on above: Performed By: #### B RESEARCH ENVIRONMENTAL SCIENTIST, CMP ####[facility] Jazfrqtuok[address] [place], [place] [address]Dr. Villa Yanes AST [Catalytic activity/Vol] 28 U/L Normal 15-37 [facility] Comment on above: Performed By: #### B RESEARCH ENVIRONMENTAL SCIENTIST, CMP ####[facility] Bbfqoqvuvy[address] [place], [place] [address]Dr. Villa Yanes Bilirubin [Mass/Vol] 0.3 mg/dL Normal 0.2-1.0 [facility] Comment on above: Performed By: #### B RESEARCH ENVIRONMENTAL SCIENTIST, CMP ####[facility] Lmmfdvzbje[address] [place], [place] [address]Dr. Villa Yanes Calcium [Mass/Vol] 8.7 mg/dL Normal 8.5-10.1 [facility] Comment on above: Performed By: #### B RESEARCH ENVIRONMENTAL SCIENTIST, CMP ####[facility] Eupmfftyxv[address] [place] [address]Dr. Villa Yanes Chloride [Moles/Vol] 100 mmol/L Normal 98-107 [facility] Comment on above: Performed By: #### B RESEARCH ENVIRONMENTAL SCIENTIST, CMP ####[facility] Epljgscqlq[address] [place], [place] [address]Dr. Villa Yanes CO2 [Moles/Vol] 28.1 mmol/L Normal 21.0-32.0 [facility] Comment on above: Performed By: #### B RESEARCH ENVIRONMENTAL SCIENTIST, CMP ####[facility] Wmqavvaalw[address] [place], [place] [address]Dr. Villa Yanes Creatinine [Mass/Vol] 1.61 mg/dL Critically high 0.70-1.30 [facility] Comment on above: Performed By: #### B RESEARCH ENVIRONMENTAL SCIENTIST, CMP ####[facility] Omxhkavejh8[address] [place], [place] [address]Dr. Villa Yanes EGFR-AF BELIZEAN 50 mL/min/1.73m2 Critically low >=60 [facility] Comment on above: Performed By: #### B RESEARCH ENVIRONMENTAL SCIENTIST, CMP ####[facility] Elfpmsyltv[address] [place], [place] [address]Dr. Villa Yanes EGFR-NON AF BELIZEAN 42 mL/min/1.73m2 Critically low >=60 [facility] Comment on above: Performed By: #### B RESEARCH ENVIRONMENTAL SCIENTIST, CMP ####[facility] Rxmbzfoxvr8[address] [place], [place] [address]Dr. Villa Yanes Globulin (S) [Mass/Vol] 4.1 g/dL Normal [facility] Comment on above: Performed By: #### B RESEARCH ENVIRONMENTAL SCIENTIST, CMP ####[facility] Vyigmexpcq[address] [place], [place] [address]Dr. Villa Yanes Glucose [Mass/Vol] 154 mg/dL Critically high 74-106 [facility] Comment on above: Performed By: #### B RESEARCH ENVIRONMENTAL SCIENTIST, CMP ####[facility] Igipthkuvu[address] [place], [place] [address]Dr. Villa Yanes Potassium [Moles/Vol] 4.1 mmol/L Normal 3.5-5.1 [facility] Comment on above: Performed By: #### B RESEARCH ENVIRONMENTAL SCIENTIST, CMP ####[facility] Agvlclvmwf[address] [place], [place] [address]Dr. Villa Yanes Protein [Mass/Vol] 6.1 g/dL Critically low 6.4-8.2 [facility] Comment on above: Performed By: #### B RESEARCH ENVIRONMENTAL SCIENTIST, CMP ####[facility] Hmhufolkmz[address] [place], [place] [address]Dr. Villa Yanes Sodium [Moles/Vol] 135 mmol/L Critically low 136-145 Th [facility] Comment on above: Performed By: #### B RESEARCH ENVIRONMENTAL SCIENTIST, CMP ####[facility] Uyeazpqmdz[address] [place], [place] [address]Dr. Villa Yaens Urea nitrogen [Mass/Vol] 29.0 mg/dL Critically high 7.0-18.0 [facility] Comment on above: Performed By: #### B RESEARCH ENVIRONMENTAL SCIENTIST, CMP ####[facility] Lwlesfonwq[address] [place], [place] [address]Dr. Villa Yanes Urea nitrogen/Creatinine [Mass ratio] 18.0 mg/mg Normal [facility] Comment on above: Performed By: #### B RESEARCH ENVIRONMENTAL SCIENTIST, CMP ####[facility] Heaqzwifvu[address] [place], [place] [address]Dr. Villa Yanes XR ABD FLAT UP_PA Temo 10-09 XR ABD FLAT UP_PA CH Normal [facility] BNPon 10-08-2021 Natriuretic peptide B (Bld) [Mass/Vol] 1299.0 pg/mL Normal <=1,800.0 [facility] Comment on above: Performed By: #### B RESEARCH ENVIRONMENTAL SCIENTIST, CMP ####[facility] Pvqpyvitvo[address] [place], [place] [address]Dr. Villa Yanes CBC AUTO DIFFon 10-08-2021 BASO # 0.1 103/ul Normal 0.0-0.1 [facility] Comment on above: Performed By: #### C BC ####[facility] C[address]ff[address] [place], [place] [address]Dr. Villa Yanes Basophils/100 WBC (Bld) 0.7 % Normal 0.2-2.0 [facility] Comment on above: Performed By: #### C BC ####[facility] Uyrbsxatws[address] [place], [place] [address]DrBrenden Yanes EO # 0.4 103/ul Normal 0.0-0.7 [facility] Comment on above: Performed By: #### C BC ####[facility] [address]olubvhdjc[address] [place], [place] [address]DrBrenden Yanes Eosinophils/100 WBC (Bld) 4.5 % Normal 0.9-7.0 [facility] Comment on above: Performed By: #### C BC ####[facility] Qpecswiycm[address] [place], [place] [address]DrBrenden Yanes Erythrocyte distribution width (RBC) [Ratio] 13.1 % Normal 11.0-15.0 [facility] Comment on above: Performed By: #### C BC ####[facility] Azzlhgmvfn[address] [place], [place] [address]DrBrenden Yanes Hematocrit (Bld) [Volume fraction] 32.8 % Critically low 42.0-54.0 [facility] Comment on above: Performed By: #### C BC ####[facility] Xkekngdvdf[address] [place], [place] [address]DrBrenden Yanes Hemoglobin (Bld) [Mass/Vol] 10.3 g/dL Critically low 14.0-18.0 [facility] Comment on above: Performed By: #### C BC ####[facility] Bijasherxv[address] [place], [place] [address]DrBrenden Yanes IG # 0.13 10e3/ul Critically high 0.00-0.03 [facility] Comment on above: Performed By: #### C BC ####[facility] Hjbvhrodkq[address] [place], [place] [address]DrBrenden Yanes IG % 1.4 % Critically high 0.0-0.5 [facility] Comment on above: Performed By: #### C BC ####[facility] [address]ffgovucpf[address] [place], [place] [address]Dr. Villa Yanes LYMPH # 1.2 103/ul Normal 1.2-3.8 [facility] Comment on above: Performed By: #### C BC ####[facility] Ublcwkoube[address] [place] [address]DrBrenden Yanes Lymphocytes/100 WBC (Bld) 13.0 % Critically low 20.5-60.0 [facility] Comment on above: Performed By: #### C BC ####[facility] Izcgjdqsbv[address] [place], [place] [address]DrBrenden Yanes MANUAL DIFF REQ NO Normal [facility] Comment on above: Performed By: #### C BC ####[facility] Gswicjqhpe[address] [place], [place] [address]DrBrenden Yanes MCH (RBC) [Entitic mass] 30.2 pg Normal 25.9-34.0 [facility] Comment on above: Performed By: #### C BC ####[facility] Y[address]qdqkmk[address] [place], [place] [address]DrBrenden Yanes MCHC (RBC) [Mass/Vol] 31.4 g/dL Normal 29.9-35.2 [facility] Comment on above: Performed By: #### C BC ####[facility] Bucvfmqyim[address] [place], [place] [address]DrBrenden Yanes MCV (RBC) [Entitic vol] 96.2 fL Critically high 80.0-94.0 [facility] Comment on above: Performed By: #### C BC ####[facility] [address]zz[address]kl[address] [place], [place] [address]DrBrenden Yanes MONO # 0.7 103/ul Normal 0.3-0.8 [facility] Comment on above: Performed By: #### C BC ####[facility] Jgnagralvw[address] [place], [place] [address]DrBrenden Yanes Monocytes/100 WBC (Bld) 7.9 % Normal 1.7-12.0 [facility] Comment on above: Performed By: #### C BC ####[facility] F[address]uxevpvud[address] [place], [place] [address]DrBrenden Yanes NEUT # 6.8 103/ul Critically high 1.4-6.5 [facility] Comment on above: Performed By: #### C BC ####[facility] [address]rjcydvlwo[address] [place] [address]Dr. Villa Yanes Neutrophils/100 WBC (Bld) 72.5 % Normal 43.0-75.0 [facility] Comment on above: Performed By: #### C BC ####[facility] Apokerkvgb[address] [place] [address]Dr. Villa Yanes Platelet mean volume (Bld) [Entitic vol] 9.2 fL Critically low 9.5-13.5 [facility] Comment on above: Performed By: #### C BC ####[facility] Ewrrcuwykd[address] [place], [place] [address]Dr. Villa Yanes PLT 258 103/ul Normal 150-450 [facility] Comment on above: Performed By: #### C BC ####[facility] Ckhjcyddix[address] [place], [place] [address]Dr. Villa Yanes RBC 3.41 106/ul Critically low 4.70-6.10 [facility] Comment on above: Performed By: #### C BC ####[facility] Oxlnogfcpg[address] [place], [place] [address]Dr. Villa Yanes WBC 9.4 103/ul Normal 4.0-11.0 [facility] Comment on above: Performed By: #### C BC ####[facility] Scwlgutsnf4[address] [place], [place] [address]Dr. Villa Joaquín POINT OF CARE GLUCOSEon 05- Glucose [Mass/Vol] 180 mg/dL Critically high 74-106 [facility] Comment on above: Performed By: #### P OCGLUC ####[facility] Yukescgwdp[address] [place], [place] [address]Dr. Villa Yanes Glucose [Mass/Vol] 159 mg/dL Critically high 74-106 [facility] Comment on above: Performed By: #### P OCGLUC ####[facility] Uyikufceit[address] [place], [place] [address]Dr. Villa Yanes Glucose [Mass/Vol] 110 mg/dL Critically high 74-106 [facility] Comment on above: Performed By: #### P OCGLUC ####[facility] [address]ms[address] [place] [address]Dr. Villa Yanes PROF 14(COMP METB)on 022 Albumin [Mass/Vol] 2.1 g/dL Critically low 3.4-5.0 [facility] Comment on above: Performed By: #### B RESEARCH ENVIRONMENTAL SCIENTIST, CMP ####[facility] Knhvaoietg[address] [place], [place] [address]Dr. Villa Yanes Albumin/Globulin [Mass ratio] 0.5 {ratio} Normal [facility] Comment on above: Performed By: #### B RESEARCH ENVIRONMENTAL SCIENTIST, CMP ####[facility] Ypzjtqjjiq[address] [place], [place] [address]Dr. Villa Yanes ALP [Catalytic activity/Vol] 92 U/L Normal 46-116 [facility] Comment on above: Performed By: #### B RESEARCH ENVIRONMENTAL SCIENTIST, CMP ####[facility] Xihcdhndgu[address] [place], [place] [address]Dr. Villa Yanes ALT [Catalytic activity/Vol] 9 U/L Critically low 16-63 [facility] Comment on above: Performed By: #### B RESEARCH ENVIRONMENTAL SCIENTIST, CMP ####[facility] Ommlivnxwp40[address] [place], [place] [address]Dr. Villa Yanes Anion gap [Moles/Vol] 9.6 mmol/L Normal [facility] Comment on above: Performed By: #### B RESEARCH ENVIRONMENTAL SCIENTIST, CMP ####[facility] Ahbokdlegc[address] [place], [place] [address]Dr. Villa Yanes AST [Catalytic activity/Vol] 13 U/L Critically low 15-37 [facility] Comment on above: Performed By: #### B RESEARCH ENVIRONMENTAL SCIENTIST, CMP ####[facility] Ynklpvgbhs[address] [place], [place] [address]Dr. Villa Yanes Bilirubin [Mass/Vol] 0.3 mg/dL Normal 0.2-1.0 [facility] Comment on above: Performed By: #### B RESEARCH ENVIRONMENTAL SCIENTIST, CMP ####[facility] Wegyexrxty[address] [place], [place] [address]Dr. Villa Yanes Calcium [Mass/Vol] 9.0 mg/dL Normal 8.5-10.1 [facility] Comment on above: Performed By: #### B RESEARCH ENVIRONMENTAL SCIENTIST, CMP ####[facility] Eefqeeqqgo[address] [place], [place] [address]Dr. Villa Yanes Chloride [Moles/Vol] 102 mmol/L Normal 98-107 [facility] Comment on above: Performed By: #### B RESEARCH ENVIRONMENTAL SCIENTIST, CMP ####[facility] Xskgtzivey9[address] [place], [place] [address]Dr. Villa Yanes CO2 [Moles/Vol] 29.5 mmol/L Normal 21.0-32.0 [facility] Comment on above: Performed By: #### B RESEARCH ENVIRONMENTAL SCIENTIST, CMP ####[facility] Redwlqtzqk[address] [place], [place] [address]Dr. Villa Yanes Creatinine [Mass/Vol] 1.49 mg/dL Critically high 0.70-1.30 [facility] Comment on above: Performed By: #### B RESEARCH ENVIRONMENTAL SCIENTIST, CMP ####[facility] Obidqqlctl[address] [place], [place] [address]Dr. Villa Yanes EGFR-AF BELIZEAN 55 mL/min/1.73m2 Critically low >=60 [facility] Comment on above: Performed By: #### B RESEARCH ENVIRONMENTAL SCIENTIST, CMP ####[facility] Yrfpfgaikl[address] [place], [place] [address]Dr. Villa Yanes EGFR-NON AF BELIZEAN 45 mL/min/1.73m2 Critically low >=60 [facility] Comment on above: Performed By: #### B RESEARCH ENVIRONMENTAL SCIENTIST, CMP ####[facility] Qowjfqtslh[address] [place], [place] [address]Dr. Villa Yanes Globulin (S) [Mass/Vol] 4.2 g/dL Normal [facility] Comment on above: Performed By: #### B RESEARCH ENVIRONMENTAL SCIENTIST, CMP ####[facility] Qzgbibbuqr1246[address] [place], [place] [address]Dr. Villa Yanes Glucose [Mass/Vol] 157 mg/dL Critically high 74-106 [facility] Comment on above: Performed By: #### B RESEARCH ENVIRONMENTAL SCIENTIST, CMP ####[facility] [address] [place] [id number]. Villa Yanes Potassium [Moles/Vol] 4.1 mmol/L Normal 3.5-5.1 [facility] Comment on above: Performed By: #### B RESEARCH ENVIRONMENTAL SCIENTIST, CMP ####[facility] [address] [place] [address]Dr. Villa Yanes Protein [Mass/Vol] 6.3 g/dL Critically low 6.4-8.2 [facility] Comment on above: Performed By: #### B RESEARCH ENVIRONMENTAL SCIENTIST, CMP ####[facility] Eqqcosdqgj[address] [place] [address]Dr. Villa Yanes Sodium [Moles/Vol] 137 mmol/L Normal 136-145 [facility] Comment on above: Performed By: #### B RESEARCH ENVIRONMENTAL SCIENTIST, CMP ####[facility] H[address]ssfubzh[address] [place], [place] [address]Dr. Villa Yanes Urea nitrogen [Mass/Vol] 26.0 mg/dL Critically high 7.0-18.0 [facility] Comment on above: Performed By: #### B RESEARCH ENVIRONMENTAL SCIENTIST, CMP ####[facility] Mt[address]ivbfhi[address] [place], [place] [address]Dr. Villa Yaens Urea nitrogen/Creatinine [Mass ratio] 17.4 mg/mg Normal [facility] Comment on above: Performed By: #### B RESEARCH ENVIRONMENTAL SCIENTIST, CMP ####[facility] Bxygoraqaa[address] [place], [place] [address]Dr. Villa Yanes POINT OF CARE GLUCOSEon 09-21 Glucose [Mass/Vol] 145 mg/dL Critically high 74-106 [facility] Comment on above: Performed By: #### P OCGLUC ####[facility] [address] [place] [address]Dr. Villa Yanes Glucose [Mass/Vol] 163 mg/dL Critically high 74-106 [facility] Comment on above: Performed By: #### P OCGLUC ####[facility] [address]scgtmto[address] [place], [place] [address]Dr. Villa Yanes Glucose [Mass/Vol] 169 mg/dL Critically high 74-106 [facility] Comment on above: Performed By: #### P OCGLUC ####[facility] [address]os[address] [place], [place] [address]SgBrenden Villa Yanes Tobacco Screening.on 022 Adult depression screening assessment No [facility] marika 250 DO Work Phone: Fall risk assessment b) One or more fall s in the last year [facility] marika 250 DO Work Phone: Tobacco use status CP a) Yes [facility] marika 250 DO Work Phone: Tobacco Screening. Yes [facility] marika 250 DO Work Phone: Vital Signs Date Time Vital Sign Value Performing Clinician Facility 02-04-2023 11:57-0400 Body height 180.34 cm Micheal M Hoy Work Phone: [facility] 250 DO Work Phone: 02-04-2023 11:57-0400 Body mass index (BMI) [Ratio] 19.53 kg/m2 Micheal M Hoy Work Phone: [facility] 250 DO Work Phone: 02-04-2023 11:57-0400 Body surface area Derived from formula 1.81 m2 Micheal M Hoy Work Phone: [facility] 250 DO Work Phone: 02-04-2023 11:57-0400 Body weight 63.5 kg Micheal M Hoy Work Phone: [facility] 250 DO Work Phone: 02-04-2023 11:57-0400 Diastolic blood pressure 62 mm[Hg] Micheal M Hoy Work Phone: [facility] 250 DO Work Phone: 02-04-2023 11:57-0400 Heart rate 62 /min Micheal M Hoy Work Phone: [facility] 250 DO Work Phone: 02-04-2023 11:57-0400 Systolic blood pressure 140 mm[Hg] Michealkiersten Sarmientoy Work Phone: [facility] 250 DO Work Phone: 11-26-2022 00:00-0400 55 1 Micheal Jennings Hoy Work Phone: [facility] 250 DO Work Phone: Comment on above: [id number] 11-25-2022 22:09-0400 Body height 180.34 cm MD Micheal Gutiérrez Work Phone: [facility] 11-25-2022 22:09-0400 Body temperature 98.1 [degF] MD Micheal Gutiérrez Work Phone: [facility] 11-25-2022 22:09-0400 Body weight 56.9 kg MD Micheal Gutiérrez Work Phone: [facility] 11-25-2022 22:09-0400 Diastolic blood pressure 94 mm[Hg] MD Micheal Gutiérrez Work Phone: [facility] 11-25-2022 22:09-0400 Heart rate 69 /min MD Micheal Gutiérrez Work Phone: [facility] 11-25-2022 22:09-0400 Respiratory rate 18 /min MD Micheal Gutiérrez Work Phone: [facility] 11-25-2022 22:09-0400 SaO2% (BldA) [Mass fraction] 94 % MD Micheal Gutiérrez Work Phone: [facility] 11-25-2022 22:09-0400 Systolic blood pressure 177 mm[Hg] MD Micheal Gutiérrez Work Phone: [facility] 08-04-2022 11:02-0400 Body height 180.34 cm Micheal Sarmientoy Work Phone: [facility] 250 DO Work Phone: 08-04-2022 11:02-0400 Body mass index (BMI) [Ratio] 17.71 kg/m2 Micheal M Hoy Work Phone: [facility] 250 DO Work Phone: 08-04-2022 11:02-0400 Body surface area Derived from formula 1.74 m2 Micheal M Hoy Work Phone: [facility] 250 DO Work Phone: 08-04-2022 11:02-0400 Body weight 57.61 kg Micheal M Hoy Work Phone: [facility] 250 DO Work Phone: 08-04-2022 11:02-0400 Diastolic blood pressure 60 mm[Hg] Micheal M Hoy Work Phone: [facility] 250 DO Work Phone: 08-04-2022 11:02-0400 Heart rate 82 /min Micheal M Hoy Work Phone: [facility] 250 DO Work Phone: 08-04-2022 11:02-0400 Systolic blood pressure 120 mm[Hg] Micheal M Hoy Work Phone: [facility] 250 DO Work Phone: 03-12-2022 12:03-0400 Body height 180.34 cm Micheal M Hoy Work Phone: [facility] 250 DO Work Phone: 03-12-2022 12:03-0400 Body mass index (BMI) [Ratio] 19.67 kg/m2 Micheal M Hoy Work Phone: [facility] 250 DO Work Phone: 03-12-2022 12:03-0400 Body surface area Derived from formula 1.82 m2 Micheal M Hoy Work Phone: [facility] 250 DO Work Phone: 03-12-2022 12:03-0400 Body weight 63.96 kg Micheal M Hoy Work Phone: [facility] 250 DO Work Phone: 03-12-2022 12:03-0400 Diastolic blood pressure 64 mm[Hg] Micheal M Hoy Work Phone: [facility] 250 DO Work Phone: 03-12-2022 12:03-0400 Heart rate 64 /min Micheal M Hoy Work Phone: [facility] 250 DO Work Phone: 03-12-2022 12:03-0400 Systolic blood pressure 134 mm[Hg] Micheal M Hoy Work Phone: [facility] 250 DO Work Phone: 02-17-2022 15:33-0400 Body height 180.34 cm Micheal M Hoy Work Phone: [facility] 250 DO Work Phone: 02-17-2022 15:33-0400 Body mass index (BMI) [Ratio] 19.72 kg/m2 Micheal M Hoy Work Phone: [facility] 250 DO Work Phone: 02-17-2022 15:33-0400 Body surface area Derived from formula 1.82 m2 Micheal M Hoy Work Phone: [facility] 250 DO Work Phone: 02-17-2022 15:33-0400 Body weight 64.13 kg Micheal M Hoy Work Phone: [facility] 250 DO Work Phone: 02-17-2022 15:33-0400 Diastolic blood pressure 70 mm[Hg] Micheal M Hoy Work Phone: [facility] 250 DO Work Phone: 02-17-2022 15:33-0400 Heart rate 80 /min Micheal M Hoy Work Phone: [facility] 250 DO Work Phone: 02-17-2022 15:33-0400 Systolic blood pressure 124 mm[Hg] Micheal Dick Hoy Work Phone: [facility] 250 DO Work Phone: 2022 14:04-0400 Body height 170.8 cm Billie Guan MD Work Phone: [facility] 2022 14:04-0400 Body weight 62.14 kg Billie Guan MD Work Phone: [facility] 2022 14:04-0400 Diastolic blood pressure 76 mm[Hg] Billie Guan MD Work Phone: [facility] 2022 14:04-0400 Heart rate 78 /min Billie Guan MD Work Phone: [facility] 2022 14:04-0400 Systolic blood pressure 124 mm[Hg] Billie Guan MD Work Phone: [facility] 01-12-2022 11:28-0400 Body height 180.34 cm Micheal Dick Hoy Work Phone: [facility] 250 DO Work Phone: 01-12-2022 11:28-0400 Body mass index (BMI) [Ratio] 18.69 kg/m2 Micheal M Hoy Work Phone: [facility] 250 DO Work Phone: 01-12-2022 11:28-0400 Body surface area Derived from formula 1.78 m2 Micheal M Hoy Work Phone: [facility] 250 DO Work Phone: 01-12-2022 11:28-0400 Body weight 60.78 kg Micheal Gutiérrez Work Phone: [facility] 250 DO Work Phone: 01-12-2022 11:28-0400 Diastolic blood pressure 52 mm[Hg] Micheal Gutiérrez Work Phone: [facility] 250 DO Work Phone: 01-12-2022 11:28-0400 Heart rate 96 /min Micheal Gutiérrez Work Phone: [facility] DO Work Phone: 01-12-2022 11:28-0400 Systolic blood pressure 100 mm[Hg] Micheal Gutiérrez Work Phone: [facility] 250 DO Work Phone: 12-31-2021 12:26-0400 Body temperature 98.4 [degF] Wanchana Sachai [employer].GENERATOR OPERATOR Work Phone: [facility] 12-31-2021 12:26-0400 Diastolic blood pressure 85 mm[Hg] Wanchana Sachai [employer].GENERATOR OPERATOR Work Phone: [facility] 12-31-2021 12:26-0400 Heart rate 67 /min Wanchana Sachai [employer].GENERATOR OPERATOR Work Phone: [facility] 12-31-2021 12:26-0400 SaO2% (BldA) [Mass fraction] 98 % Wanchana Sachai [employer].GENERATOR OPERATOR Work Phone: [facility] 12-31-2021 12:26-0400 Systolic blood pressure 138 mm[Hg] Wanchana Sachai [employer].GENERATOR OPERATOR Work Phone: [facility] 12-31-2021 09:48-0400 Body height 170.8 cm Ced Wright MD Work Phone: [facility] 12-31-2021 09:48-0400 Body temperature 97.5 [degF] Ced Wright MD Work Phone: [facility] 12-31-2021 09:48-0400 Body weight 58.92 kg Ced Wright MD Work Phone: [facility] 12-31-2021 09:48-0400 Diastolic blood pressure 57 mm[Hg] Ced Wright MD Work Phone: [facility] 12-31-2021 09:48-0400 Heart rate 93 /min Ced Wright MD Work Phone: [facility] 12-31-2021 09:48-0400 Respiratory rate 24 /min Ced Wright MD Work Phone: [facility] 12-31-2021 09:48-0400 SaO2% (BldA) [Mass fraction] 99 % Ced Wright MD Work Phone: [facility] 12-31-2021 09:48-0400 Systolic blood pressure 104 mm[Hg] Ced Wright MD Work Phone: [facility] 11-27-2021 13:06-0400 Body height 180.3 cm Merced Arrigon [employer].GENERATOR OPERATOR Work Phone: [facility] 11-27-2021 13:06-0400 Body weight 58.88 kg Merced Arrigon [employer].GENERATOR OPERATOR Work Phone: [facility] 11-27-2021 13:06-0400 Diastolic blood pressure 63 mm[Hg] Merced Arrigon [employer].GENERATOR OPERATOR Work Phone: [facility] 11-27-2021 13:06-0400 Heart rate 97 /min Merced Arrigon [employer].GENERATOR OPERATOR Work Phone: [facility] 11-27-2021 13:06-0400 Systolic blood pressure 125 mm[Hg] Merced Arrigon [employer]ER.GENERATOR OPERATOR Work Phone: [facility] 11-04-2021 09:45-0400 60 1 Micheal M Hoy Work Phone: [facility] [address] [place] Work Phone: Comment on above: [id number] 09-11-2021 10:19-0400 Body height 180.34 cm Micheal M Hoy Work Phone: [facility] 250 DO Work Phone: 09-11-2021 10:19-0400 Body mass index (BMI) [Ratio] 20.92 kg/m2 Micheal M Hoy Work Phone: [facility] 250 DO Work Phone: 09-11-2021 10:19-0400 Body surface area Derived from formula 1.87 m2 Micheal M Hoy Work Phone: [facility] 250 DO Work Phone: 09-11-2021 10:19-0400 Body weight 68.04 kg Micheal M Hoy Work Phone: [facility] 250 DO Work Phone: 09-11-2021 10:19-0400 Diastolic blood pressure 69 mm[Hg] Micheal M Hoy Work Phone: [facility] 250 DO Work Phone: 09-11-2021 10:19-0400 Heart rate 77 /min Micheal M Hoy Work Phone: [facility] 250 DO Work Phone: 09-11-2021 10:19-0400 Systolic blood pressure 101 mm[Hg] Micheal M Hoy Work Phone: [facility] 250 DO Work Phone: Encounters Encounter Date Encounter Type Care Provider Facility Start: 06-04-2023 End: 06-05-2023 ambulatory MICHEAL M HOY Facility:[facility] Start: 05-31-2023 ambulatory Gabriela Singh Facility:[facility] Start: 05-28-2023 End: 05-28-2023 ambulatory MICHEAL GUTIÉRREZ Facility:[facility] Start: 05-27-2023 End: 05-27-2023 ambulatory MICHEAL GUTIÉRREZ Facility:[facility] Start: 02-04-2023 Office outpatient vi sit 25 minutes Michealkiersten Gutiérrez Work Phone: [facility] 250 DO Work Phone: Start: 02-04-[address] Lauro Collins Facility: Start: 11-27-[address] Micheal Gutiérrez Facility:[id number] Start: 11-26-[address] Micheal Gutiérrez Facility:[id number] Start: 11-25-2022 End: 11-30-2022 Evaluation and management of inpatient Rosie Garces Facility:[facility] Start: 11-25-2022 Evaluation and management of inpatient MD Micheal Gutiérrez Work Phone: [facility] Work Phone: Start: 10-05-2022 End: 10-05-2022 ambulatory ANAHY CHAUDHRY . Facility:[facility]1 Start: 09-11-2022 End: 09-12-[address] RANGEL MCGOVERN . Facility:[facility] Start: 09-10-2022 ambulatory DEVON SILVESTRE . Facili ty:H1 Start: 08-17-2022 End: 08-18-[address] MICHEAL GUTIÉRREZ . Facility:[facility] Start: 08-04-2022 Office outpatient vi sit 25 minutes Micheal Gutiérrez Work Phone: [employer] 250 DO Work Phone: Start: 08-04-[address] Lauro Collins Facility: Start: 07-30-2022 End: 07-31-[address] MICHEAL GUTIÉRREZ . Facility:[facility]1 Start: 07-28-2022 End: 07-29-2022 ambulatory MYNOR COOPER . Facility:[facility] Start: 07-16-2022 End: 07-17-2022 ambulatory MYNOR COOPER . Facility:[facility]1 Start: 07-13-2022 Telephone encounter Micheal Gutiérrez Work Phone: -[facility] 250 DO Work Phone: Start: 07-10-2022 End: 07-10-2022 ambulatory Hansel Goldmanmaryam [facility] Work Phone: General Surgery Comment on above: S/P percutaneous end oscopic gastrostomy (PEG) tube placement (HCC) (Primary Dx) Start: 07-10-2022 End: 07-10-2022 Telemedicine consultation with patient Hansel Goldmanmaryam [facility] Work Phone: [facility] Start: 07-01-2022 End: 07-01-2022 ambulatory [...] sit 40 minutes Micheal Gutiérrez Work Phone: [facility] 250 DO Work Phone: Start: 02-17-2022 Office outpatient vi sit 15 minutes Micheal Dick Hoy Work Phone: [facility] 250 DO Work Phone: Start: 02-17-2022 Patient encounter procedure Micheal Dick Hoy Work Phone: [facility] 250 DO Work Phone: Start: 02-17-2022 Refill Merced Colindres on [employer].GENERATOR OPERATOR Work Phone: Urology Comment on above: Opened In Error Start: 02-02-2022 Telephone encounter Merced mcqueen [employer].GENERATOR OPERATOR Work Phone: Urology Comment on above: Medication Problem Start: 01-27-2022 ambulatory Rivka Crespo RN General Surgery Comment on above: 01/28/2022 Start: 01-27-2022 Preprocedural examination done Rivka Crespo RN General Surgery Start: 01-27-2022 Telephone encounter Thu Lancaster RN General Surgery Comment on above: Patient Update Start: 2022 End: 2022 Patient encounter procedure Billie Guan MD Work Phone: General Surgery Comment on above: 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) Start: 01-17-2022 End: 01-17-[address] ANAMARIA BENITEZ Facility: Start: 01-16-2022 End: 01-16-2022 Subsequent hospital visit by physician [facility] [employer] [facility] (I-Stat/1.5t) Radiology Comment on above: 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 Facili ty:H1 Start: 12-31-2021 End: 12-31-2021 Office outpatient new 30 minutes Yadira Frazier [employer].GENERATOR OPERATOR Work Phone: [facility] Comment on above: Feeding tube blocked , initial encounter (Primary Dx); SOB (shortness of breath) on exertion; Chronic cough Start: 12-31-2021 End: 12-31-2021 Patient encounter procedure Ced Wright MD Work Phone: Vascular Surg Dept Comment on above: Peripheral arterial disease (HCC) (Primary Dx) Start: 12-24-2021 End: 12-24-2021 Discharged Recurring MD Micheal Gutiérrez Work Phone: [facility] [address] Start: 12-19-2021 End: 12-20-[address] MICHEAL GUTIÉRREZ . Facility:[facility]1 Start: 12-18-2021 End: 12-19-[address] MICHEAL GUTIÉRREZ . Facility:[facility]1 Start: 12-13-2021 Telephone encounter Brock garcia MD Work Phone: Urology Comment on above: Patient Question Start: 12-04-2021 Telephone encounter Merced mcqueen [employer].GENERATOR OPERATOR Work Phone: Urology Comment on above: Results Start: 12-03-2021 ambulatory Merced Manzanaresig on [employer].GENERATOR OPERATOR Work Phone: Urology Comment on above: Kidney CT Start: 12-02-2021 End: 12-02-2021 Subsequent hospital visit by physician [facility] Karla Work Phone: Radiology Comment on above: Renal lesion [N28.9] Start: 11-27-2021 ambulatory Merced Colindres on [employer].GENERATOR OPERATOR Work Phone: Urology Start: 11-27-2021 Telephone encounter Micheal Gutiérrez MD Work Phone: NOC Comment on above: Follow Up Phone Call (All Clear) Start: 11-27-2021 End: 11-27-2021 Patient encounter procedure Merced Lackey [employer].GENERATOR OPERATOR Work Phone: Urology Comment on above: Urinary retention (P rimary Dx); Renal lesion Start: 11-21-2021 Admission to [facility] Micheal Gutiérrez MD Work Phone: [facility] Work Phone: Start: 11-20-2021 Telephone encounter Ced Wright MD Work Phone: Vascular Surg Dept Comment on above: Appointment Start: 11-19-2021 Telephone encounter Micheal Gutiérrez Work Phone: [facility] 250 DO Work Phone: Start: 11-11-2021 Chart Update Micheal Gutiérrez Work Phone: [facility] 250 DO Work Phone: Start: 11-11-[address] SHUKRI HONG . Facility:[facility]1 Start: 11-10-2021 Admission to [facility] Ced Wright MD Work Phone: [facility] Work Phone: Start: 11-04-2021 Patient encounter procedure Micheal Gutiérrez Work Phone: [facility] [address] [place] Work Phone: Start: 10-28-2021 End: 10-28-[address] MICHEAL GUTIÉRREZ . Facility:H1 Start: 09-23-2021 AUDIT Micheal Gutiérrez Work Phone: [facility] 250 DO Work Phone: Start: 09-11-2021 Office outpatient vi sit 40 minutes Micheal Gutiérrez Work Phone: [facility] 250 DO Work Phone: Start: 04-20-2018 End: 04-21-2018 Patient encounter procedure DEFAULT PHYSICIAN Facility:[facility] Procedures Date Procedure Procedure Detail Performing Clinician Start: 11-25-2022 Plain chest X-ray MD Micheal Gutiérrez Work Phone: Start: 12-02-2021 Ct abdomen w/o & w/contrast material Merced Lackey APRN.GENERATOR OPERATOR Work Phone: Start: 11-10-2021 History of percutaneous transluminal coronary angioplasty History of PTCA Ced Wright MD Work Phone: Start: 11-04-2021 Echocardiography Micheal M Hoy Work Phone: Start: 06-13-2019 Total colonoscopy Micheal M Hoy Work Phone: Cardiac catheterization Igor las M Hoy Work Phone: Cataract surgery Micheal M H oy Work Phone: Endoscopic placement of gastrostomy tube Micheal M Hoy Work Phone: Epiglottidectomy Micheal M H oy Work Phone: Esophagogastroduodenoscopy D ouglas M Hoy Work Phone: Excision of basal cell carcinoma Micheal M Hoy Work Phone: History of percutane ous transluminal coronary angioplasty History of PTCA Micheal M Hoy Work Phone: Intraoperative trans luminal femoral-popliteal angioplasty Micheal M Hoy Work Phone: Surgical procedure on thorax Micheal M Hoy Work Phone: Urinary catheter placement D ouglas M Hoy Work Phone: Plan of Treatment Date Care Activity Detail Author Start: 02-03-2025 DIABETES SCREEN [facility] Start: 11-14-2024 DIABETES SCREEN DIABETES SCREEN [facility] Start: 08-05-2023 FUV, Provider: Lauro Collins, Status: Pen, Time: 11:10 AM FUV, Provider: Lauro Collins, Status: Pen, Time: 11:10 AM [facility] 250 DO Work Phone: Start: 01-22-2023 Influenza vaccination INFLUENZA (#1) [facility] Start: 01-05-2023 FUV, Provider: Lauro Collins, Status: Pen, Time: 2:50 PM FUV, Provider: Lauro Collins, Status: Pen, Time: 2:50 PM [facility] 250 DO Work Phone: Start: 12-31-2022 ANNUAL PCP TEAM DISCOTHEQUE DANCER CRISTY DISEASE VISIT ANNUAL PCP TEAM CHRONIC DISEASE VISIT [facility] Start: 11-26-2022 Blood chemistry [facility] Start: 11-26-2022 [facility] Start: 11-25-2022 End: 11-25-2022 [facility] Start: 11-25-2022 Physical therapy procedure [facility] Start: 11-25-2022 Referral to cutting supervisor [facility] Start: 11-25-2022 Referral to occupational therapist [facility] Start: 11-25-2022 Hospital admission [facility] Start: 11-25-2022 Bacteria identified in Blood by Culture [facility] Start: 08-04-2022 FUV, Provider: Lauro Collins, Status: Pen, Time: 10:30 AM FUV, Provider: Lauro Collins, Status: Pen, Time: 10:[address] [facility] Work Phone: Start: 05-24-2022 ADVANCE DIRECTIVE DISCUSSION ADVANCE DIRECTIVE DISCUSSION [facility] Start: 05-24-2022 DEPRESSION ASSESSMENT DEPRESSION ASS ESSMENT [facility] Start: 03-12-2022 FUV, Provider: Lauro Collins, Status: Pen, Time: 11:40 AM FUV, Provider: Lauro Collins, Status: Pen, Time: 11:40 AM [facility] 250 DO Work Phone: Start: 03-11-2022 FUV, Provider: Lauro Collins, Status: Pen, Time: 10:40 AM FUV, Provider: Lauro Collins, Status: Pen, Time: 10:40 AM [facility] 250 DO Work Phone: Start: 01-27-2022 FUV, Provider: Rochelle Herrmann, Status: Pen, Time: 3:30 PM FUV, Provider: Rochelle Herrmann, Status: Pen, Time: 3:30 PM [facility] 250 DO Work Phone: Start: 01-22-2022 Influenza vaccination INFLUENZA (#1) [facility] Start: 12-04-2021 End: 02-03-2022 Bacteria identified in Urine by Culture URINE CULTURE Microbiology Routine Cloudy urine Expected: 12/04/2021, Expires: 02/03/2022 [facility] Work Phone: Comment on above: Expected: 12/04/2021 , Expires: 02/03/2022 Start: 11-04-2021 PVR, Provider: DONNY MARIKA [facility] 01,[id number], Status: Pen, Time: 10:45 AM PVR, Provider: HERIBERTO [facility] 01,[id number], Status: Pen, Time: 10:45 AM [facility] Work Phone: Start: 11-04-2021 ECHO, Provider: HERIBERTO [facility] 01,[id number], Status: Pen, Time: 9:45 AM ECHO, Provider: HERIBERTO [facility] 01,[id number], Status: Pen, Time: 9:45 AM [facility] Work Phone: Start: 10-08-2021 PVR, Provider: KIMU MARIKA [facility] 01,[id number], Status: Pen, Time: 10:45 AM PVR, Provider: HERIBERTO [facility] 01,[id number], Status: Pen, Time: 10:45 AM [facility] 250 DO Work Phone: Start: 10-08-2021 ECHO, Provider: HERIBERTO [facility] 01,[id number], Status: Pen, Time: 9:45 AM ECHO, Provider: HERIBERTO [facility] 01,[id number], Status: Pen, Time: 9:45 AM [facility] 250 DO Work Phone: Start: 07-30-2021 COVID-19 VACCINE (4 - Booster for Moderna series) COVID-19 VACCINE (4 - Booster for Moderna series) [facility] Start: 05-27-2021 COVID-19 VACCINE (4 - Booster for Moderna series) COVID-19 VACCINE (4 - Booster for Moderna series) [facility] Start: 05-27-2021 COVID-19 VACCINE (4 - Moderna series) COVID-19 VACCINE (4 - Moderna series) [facility] Start: 05-24-2021 ADVANCE DIRECTIVE DISCUSSION ADVANCE DIRECTIVE DISCUSSION [facility] Start: 05-24-2021 DEPRESSION ASSESSMENT DEPRESSION ASS ESSMENT [facility] Start: 2007 PNEUMOCOCCAL: 65+ (1 - PCV) PNEUMOCOCCAL: 65+ (1 - PCV) [facility] Start: 01-24-1992 SHINGRIX VACCINE (1 of 2) SHINGRIX VACCINE (1 of 2) [facility] Start: 1961 Urine microalbumin profile DTAP,TDAP,TD (1 - Tdap) [facility] Start: 01-24-1960 ANNUAL PCP TEAM DISCOTHEQUE DANCER CRISTY DISEASE VISIT ANNUAL PCP TEAM CHRONIC DISEASE VISIT [facility] Start: 01-24-1960 Hepatitis B surface antibody level LDL CHOLESTEROL [facility] Start: 1954 Adult depression screening assessment DEPRESSION SCREENING [facility] Start: 01-24-1948 PNEUMOCOCCAL: 65+ (1 - PCV) PNEUMOCOCCAL: 65+ (1 - PCV) [facility] End: 12-27-2022 Ct abdomen w/o & w/contrast material CT KIDNEY WO/W IVCON Radiology Routine Renal lesion 1 Occurrences starting 11/27/2021 until 12/27/2022 [facility] Work Phone: Comment on above: 1 Occurrences starti ng 11/27/2021 until 12/27/2022 End: 01-03-2023 Mri abdomen w/o & w/contrast material MRI KIDNEY WO/W IVCON Radiology Routine Other specified disorders of kidney and ureter 1 Occurrences starting 12/04/2021 until 01/03/2023 [facility] Work Phone: Comment on above: 1 Occurrences starti ng 12/04/2021 until 01/03/2023 URINALYSIS, REFLEX MICROSCOPIC URINALYSIS, REFLEX MICROSCOPIC Lab Routine Screening for genitourinary condition Ordered: 11/27/2021 [facility] Work Phone: Comment on above: Ordered: 11/27/2021 URINALYSIS, REFLEX MICROSCOPIC URINALYSIS, REFLEX MICROSCOPIC Lab Routine Screening for genitourinary condition Ordered: 12/03/2021 [facility] Work Phone: Comment on above: Ordered: 12/03/2021 [facility] Immunizations Immunization Date Immunization Notes Care Provider Reji prieto 03-05-2022 influenza, high dose seasonal, preservative-free Micheal Gutiérrez Work Phone: [facility] 250 DO Work Phone: Comment on above: Series: 04-01-2021 Moderna COVID-19 Vac cine 100 MCG/0.5ML Intramuscular Suspension Micheal Gutiérrez Work Phone: [facility] Work Phone: 03-13-2021 influenza, injectabl e, quadrivalent, preservative free Micheal Gutiérrez Work Phone: [facility] 250 DO Work Phone: Comment on above: Series: 02-17-2021 Seasonal trivalent influenza vaccine, adjuvanted, preservative free Micheal Gutiérrez Work Phone: [facility] Work Phone: 08-22-2020 pneumococcal polysaccharide vaccine, 23 valent Micheal Gutiérrez Work Phone: [facility] 250 DO Work Phone: Comment on above: Series: 07-19-2020 Moderna COVID-19 Vac cine 100 MCG/0.5ML Intramuscular Suspension Micheal Gutiérrez Work Phone: [facility] Work Phone: 06-21-2020 Moderna COVID-19 Vac cine 100 MCG/0.5ML Intramuscular Suspension Micheal Gutiérrez Work Phone: [facility] Work Phone: 03-06-2020 influenza, high dose seasonal, preservative-free Micheal Gutiérrez Work Phone: [facility] Work Phone: 02-23-2020 Seasonal trivalent influenza vaccine, adjuvanted, preservative free Micheal Gutiérrez Work Phone: [facility] Work Phone: 04-06-2018 influenza, injectabl e, quadrivalent, preservative free Micheal Gutiérrez Work Phone: [facility] Work Phone: 02-28-2018 tetanus and diphther ia toxoids, adsorbed, preservative free, for adult use (5 Lf of tetanus toxoid and 2 Lf of diphtheria toxoid) Micheal Gutiérrez Work Phone: [facility] Work Phone: 07-12-2017 influenza, injectabl e, quadrivalent, preservative free Micheal Gutiérrez Work Phone: [facility] Work Phone: 04-07-2017 zoster vaccine, live Micheal Gutiérrez Work Phone: [phone] Work Phone: 02-15-2017 influenza, high dose seasonal, preservative-free Micheal Gutiérrez Work Phone: [facility] Work Phone: 02-15-2017 pneumococcal conjuga te vaccine, 13 valent Micheal M Hoy Work Phone: [facility] Work Phone: 05-24-2016 pneumococcal conjuga te vaccine, 13 valent Micheal M Hoy Work Phone: [phone] [address] Work Phone: 03-04-2016 influenza, injectabl e, quadrivalent, preservative free Micheal M Torsteny Work Phone: [facility] Work Phone: 07-29-2015 influenza, injectabl e, quadrivalent, preservative free Micheal Gutiérrez Work Phone: [facility] Work Phone: 03-06-2015 pneumococcal polysaccharide vaccine, 23 valent Micheal Gutiérrez Work Phone: [facility] Work Phone: 01-03-2015 tetanus toxoid, redu mark diphtheria toxoid, and acellular pertussis vaccine, adsorbed Micheal Gutiérrez Work Phone: [facility] Work Phone: 05-09-2009 novel influenza-H1N1 -09, preservative-free, injectable Michela Gutiérrez Work Phone: [facility] Work Phone: Payers Date Payer Category Payer Medicare [id number] 2022 Self-pay [id number] 2021 Medicaid MEDICAID [facility] MEDICAID [id number] 2021-Present [phone] [address] [place] [address] Medicaid [id number] 2021 Medicaid MEDICAID [facility] MEDICAID [id number] 2021-Present [phone] [address] [place] [address] Medicaid [id number] 2020 Unknown 2020 Unknown ANTHEM BLUE CROS S AND BLUE SHIELD ANTHEM MEDIBLUE O [id number] 2020-Present [phone] [address] [place] [address] [facility] [facility] [id number]. [id number] 1957 Medicaid [id number] 1957 Medicare [id number] 1959 Self-pay [id number] 1942 Unknown [id number] 2.16.840.1.050557.3.579.2.647 1942 Unknown [id number] 2.16.840.1.962303.3.579.2.593 1942 Unknown [id number] 2.16.840.1.857363.3.579.2.593 1942 Unknown [id number] 2.16.840.1.881146.3.579.2.593 1942 Unknown [id number] 2.16.840.1.772187.3.579.2.593 1942 Unknown [id number] 2.16.840.1.087208.3.579.2.593 1942 Unknown [id number] 2.16.840.1.165396.3.579.2.593 1942 Unknown [id number] 2.16.840.1.709739.3.579.2.593 1942 Unknown [id number] 2.16.840.1.374928.3.579.2.593 1942 Unknown [id number] 2.16.840.1.052225.3.579.2.593 1942 Unknown [id number] 2.16.840.1.588224.3.579.2.593 1942 Unknown [id number] 2.16.840.1.182703.3.579.2.593 1942 Unknown [id number] 2.16.840.1.633951.3.579.2.593 1942 Unknown [id number] 2.16.840.1.165540.3.579.2.593 1942 Unknown [id number] 2.16.840.1.586542.3.579.2.593 1942 Unknown [id number] 2.16.840.1.123150.3.579.2.593 1942 Unknown [id number] 2.16.840.1.804992.3.579.2.593 1942 Unknown [id number] 2.16.840.1.845362.3.579.2.593 1942 Unknown [id number] 2.16.840.1.460838.3.579.2.593 1942 Unknown [id number] 2.16.840.1.641981.3.579.2.593 1942 Unknown [id number] 2.16.840.1.324897.3.579.2.593 1942 Unknown [id number] 2.16.840.1.713719.3.579.2.593 1942 Unknown [id number] 2.16.840.1.028327.3.579.2.593 1942 Unknown [id number] 2.16.840.1.312605.3.579.2.593 1942 Unknown [id number] 2.16.840.1.958263.3.579.2.593 1942 Unknown [id number] 2.16.840.1.470713.3.579.2.593 1942 Unknown [id number] 2.16.840.1.242974.3.579.2.356 1942 Unknown [id number] 2.16.840.1.561000.3.579.2.356 1942 Unknown [id number] 2.16.840.1.883006.3.579.2.356 1942 Unknown [id number] 2.16.840.1.337884.3.579.2.356 1942 Unknown [id number] 2.16.840.1.644264.3.579.2.356 1942 Unknown [id number] 2.16.840.1.830276.3.579.2.356 1942 Unknown [id number] 2.16.840.1.095206.3.579.2.356 Medicare Medicare [id number] Medicare Medicare Outpatient [id number] Medicare [id number] Unknown [id number] 2.16.840.1.849925.3.579.2.531 Unknown [id number] 2.16.840.1.866192.3.579.2.531 Social History Date Type Detail Facility Start: 11-10-2021 End: 11-27-2021 No illicit drug use No illicit drug use [place] [id number] DO Work Phone: Comment on above: some tea; 5 cigarettes; 1 ppd; Start: 07-07-2021 Tobacco smoking stat [facility] Tobacco smoking consumption unknown [facility] Start: 1940 Sex Assigned At Male C [facility] Start: 11-01-2021 End: 02-02-2022 Exposure to SARS-CoV-2 (event) Not sure [facility] Start: 11-27-2021 End: 12-31-2021 Tobacco smoking status UTIS Smokes tobacco daily [facility] Start: 11-27-2021 End: 12-31-2021 Tobacco use and exposure Former smokeless tobacco user [facility] Start: 11-25-2022 [facility] Start: 11-10-2021 End: 11-27-2021 Tobacco use panel [facility] National Score (1-10 0), lower number is lower risk 83 [facility] Start: 11-16-2021 Gender identity Identifies as male gender (finding) [facility] Start: 11-16-2021 Sexual orientation Heterosexual (ángel darrian) [facility] Medical Equipment Procedure Code Equipment Code Equipment Origin al Text Equipment Identifier Dates use 1 TEST STRIP to TEST BLOOD SUGAR twice a day Start: 12-13-2021 Comment on above: use 1 TEST STRIP to TEST BLOOD SUGAR twice a day Drug-eluting coronary artery stent, non-bioabsorbable- polymer-coated [id number] FDA Start: 07-08-2021 Kit Endovive 20f r Standard [place] Silicone Peg Pull Method Fenestrate - [id number] Start: 02-02-2022 Clinical Notes 11-20-2021 to 05-28-2023 Hansel Otero PA-C - 07/10/2022 2:14 PM ESTTelephone Encounter - Merced Lackey APRN.CNP - 02/02/2022 2:58 PM EDTTelephone Encounter - Thu Lancaster RN - 01/27/2022 8:21 PM EDT Note Date & Type Note Facility 05-28-2023 Note HNO ID: [id number] Author: HANSEL OTERO PA-C Service: ? Author Type: Physician Shirt Hemmer Type: Progress Notes Filed: 05/28/2023 16:10 Note Text: HISTORY AND PHYSICAL EXAMINATION SERVICE DATE: 05/28/2023 SERVICE TIME: PRIMARY CARE PHYSICIAN: Micheal Gutiérrez MD Subjective CHIEF COMPLAINT: PEG tube change HPI: This is a 83 year old male who presents to out patient clinic for PEG tube change he is taking Plavix and has a bumper tube. Patient will need to return to out patient clinic after holding Plavix . FUNCTIONAL STATUS: PAST MEDICAL HISTORY Diagnosis Date CHF (congestive [...] Shortness of Breath COMPLETE REVIEW OF SYSTEMS: Objective PHYSICAL EXAM: Physical Exam Performed: BP 136/71 Pulse 80 Ht 5' 7.244 (1.71m) Wt 135 lb (61.2kg) SpO2 94% BMI 20.99 kg/(m2). DATA: Diagnostic tests reviewed for today's visit: Assessment/Plan 1) patient with deterating G tube here for replacement on eliquis 2) changed cap 3) RTC after holding eliquis SIGNATURE: Hansel Otero PA-C PATIENT NAME: Franki Hernandez DATE: May 28, 2023 TIME: 11:52 AM [facility] 05-27-2023 Note HNO ID: [id number] Author: BILLIE GUAN MD Service: ? Author Type: Physician Type: Progress Notes Filed: 05/27/2023 12:12 Note Text: VIRTUAL VISIT PROGRESS NOTE This is a virtual visit using Pin digitalom Video Visit. It required patient-provider interaction for the medical decision making as documented below. I have communicated my name and active licensure. The patient's identity and physical location were verified at the time of this visit. Either the patient or their legal chain sales representative has been informed of the risks and benefits of -- and alternatives to -- treatment through a remote evaluation and consents to proceed with the evaluation remotely. Franki Hernandez is a 83 year old male seen for a follow up visit. HISTORY REVIEWED (electronic chart updated): PAST MEDICAL HISTORY Diagnosis Date CHF (congestive heart failure) (HCC) COPD (chronic obstructive pulmonary disease) (HCC) Hyperlipidemia Ischemic cardiomyopathy Myocardial infarction (HCC) PAD (peripheral artery disease) (HCC) PAST SURGICAL HISTORY Procedure Laterality Date MIDLINE INSERTION/CONSULT 11/15/2021 FAMILY HISTORY Problem Relation Age of Onset Alzheimer's Disease Mother other (ALS) Sister Social History Tobacco Use Smoking status: Every Day Smokeless tobacco: Former Current Outpatient Medications Medication Sig finasteride (PROSCAR) 5 mg tablet Take 1 tablet by mouth once daily. nutritional supplements 0.07 gram-1.5 kcal/mL liqd 250 mL by FEEDING TUBE route every 3 hours. Bolus 250 mL Nutren 1.5 every 3 hours during waking hours (total of 6 bolus feeds per day); water flush of 90 mL pre and post bolus feeds pantoprazole (PROTONIX) 2 mg/mL oral liquid Take 10 mL by mouth DAILY (6 AM). pantoprazole oral liquid 2 mg/mL (CPD) Take 10mL by mouth daily at 6am ONETOUCH ULTRA TEST test strip use 1 TEST STRIP to TEST BLOOD SUGAR twice a day carvedilol (COREG) 12.5 mg tablet diphenoxylate-atropine (LOMOTIL) 2.5-0.025 mg per tablet erythromycin ethyl succinate (E.E.S.) 200 mg/5 mL suspension give 2 teaspoonfuls VIA G-TUBE twice a day furosemide (LASIX) 10 mg/mL solution give 2 milliliters PER G-TUBE once daily as directed hyoscyamine (LEVSIN) 0.125 mg/mL solution TAKE 1 MLS BY MOUTH FOUR TIMES A DAY IF NEEDED HYOSYNE 0.125 mg/mL solution TAKE 1 MLS BY MOUTH FOUR TIMES A DAY IF NEEDED INSULIN ASPART U-100 SUBCUTANEOUS Inject subcutaneously. insulin detemir U-100 (LEVEMIR) 100 unit/mL injection Inject subcutaneously. LANTUS SOLOSTAR U-100 INSULIN 100 unit/mL (3 mL) inject 10 unit subcutaneously daily levoFLOXacin (LEVAQUIN) 500 mg tablet take 1 tablet VIA G-TUBE once daily CRUSH TABLET WITH SMALL AMOUNT OF WATER PER TUBE pantoprazole DR (PROTONIX) 40 mg tablet traZODone (DESYREL) 50 mg tablet HUMALOG KWIKPEN INSULIN 100 unit/mL INJECT SUBCUTANEOUSLY WITH MEALS 4 UNITS IF BS LESS THAN 120, 8 UNITS IF BS GREATER THAN 120 apixaban (ELIQUIS) 5 mg tab(s) Take 1 [...] Take 1 tablet by mouth once daily. albuterol (PROVENTIL) 2.5 mg /3 mL (0.083 %) nebulizer solution Inhale 2.5 mg as instructed every 6 hours as needed. clopidogrel (PLAVIX) 75 mg tablet Take 75 mg by mouth once daily. ENTRESTO 24-26 mg tablet Take 1 tablet by mouth twice daily. budesonide (PULMICORT) 0.25 mg/2 mL nebulizer solution Use 0.25 mg via nebulizer twice daily. levothyroxine (SYNTHROID) 75 mcg tablet Take 75 mcg by mouth daily before breakfast. ferrous sulfate 220 mg (44 mg iron)/5 mL elixir Take 220 mg by mouth once daily. HYDROcodone-Acetaminophen (NORCO) 7.5-325 mg per tablet Take 1 tablet by mouth every 4 hours as needed for pain. No current facility-administered medications for this visit. ALLERGIES Allergen Reactions Ticagrelor Shortness of Breath REVIEW OF SYSTEMS: GENERAL: feeling well without fatigue, no recent change in weight RESPIRATORY: no cough, no wheezing or shortness of breath CARDIOVASCULAR: no chest pain, no palpitations GI: normal appetite, tolerating PO well, BMs normal, and no abdominal pain : urination is normal MUSCULOSKELETAL: denies any painful or swollen joints, no muscle aches SKIN: no rash PSYCH: denies depressed or anxious mood, sleep is normal HEMATOLOGY/LYMPHOLOGY: negative for prolonged bleeding, no swollen lymph nodes ENDOCRINE: denies cold/heat intolerance, denies polyuria or polydipsia, (more content not included)... [facility] 07-28-2022 Note [facility] 07-28-2022 Note [facility] 07-16-2022 Note [facility] 07-16-2022 Note [facility] 07-10-2022 Note HNO ID: [id number] Author: Hansel Otero PA-C Service: ? Author Type: Physician Shirt Hemmer Type: Progress Notes Filed: 07/15/2022 1:04 PM Note Text: HISTORY AND PHYSICAL EXAMINATION SERVICE DATE: 07/10/2022 [...] DATE: July 10, 2022 TIME: 2:14 PM [facility] 07-10-2022 History of Presen t [...] TIME: 2:14 PM documented in this encounter [facility] 02-02-2022 Miscellaneous Notes Talked with Farideh [...] instruct daughter to discuss with Dr. Guan. Merced Lackey APRN.CNP documented in this encounter [facility] 01-27-2022 Miscellaneous Notes BMI SPECIALTY CARE [...] aware to stop eliquis 48hrs prior starting Satur am. NPO after midnight. documented in this encounter [facility] 2022 History of Presen t illness [...] DATE: 2022 TIME: 2:56 PM PAGER/CONTACT #: [phone] documented in this encounter [facility] 01-12-2022 Miscellaneous Notes Replied to more recent message regarding MBS. Merced Lackey APRN.NADER documented in this encounter [facility] 12-31-2021 Nurse Note Franki Hernandez is [...] Naveed Nicholson LPN documented in this encounter [facility] 12-31-2021 History of Presen t illness Narrative Images from the original note were not included. Medicine [place] Department of General Internal Medicine [facility] Outpatient Visit Date: December 31, 2021 CC: Patient presents with: Physiological Problem - GI HPI:Franki Hernandez is a 81 year old male who presents today to the internal medicine department G10 walk in clinic for a complains of list above. 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 Hx angiogram with intervention at [facility] in [place] with bilateral iliac stents and R EIA stent in 2009 (reports not currently available). PCP: Micheal Gutiérrez MD, MD Last visit: Patient lives 80 [place] away from [place]. He is here with his daughter who [...] [facility] in [place]. States he almost . 11/09/2021- they drove to the clinic and got admitted 11/09 -11/20 . States [place] placed NG tube in and removed peg [...] States he saw the speech therapist at [facility] and was told that he [...] Myocardial infarction (HCC) PAD (peripheral artery disease) ([facility]) Social History Tobacco Use Smoking status: Every Day Smokeless tobacco: Former ACTIVE PROBLEM LIST Diarrhea Severe Protein-Calorie Malnutrition (Hcc) History of PA (Myocardial Infarction) History of Ptca History of Cardiac Arrest Coronary Artery Disease Involving Algaaciq Coronary Artery of [place]ga[place]q Heart Without Angina Pectoris Encounter for Preoperative [...] with PCP and Gen surg Yadira Frazier APRN.NADER I spent a total of 35 minutes on the date of the service which included preparing to see the patient, [id number] patient care, completing clinical documentation, obtaining and/or reviewing separately obtained history, performing a medically appropriate examination, counseling and educating the patient/family/caregiver, and care coordination (not separately reported). documented in this encounter [facility] 12-31-2021 History and physical note Images from the original note were not included. Heart , Vascular and Thoracic [place] DEPARTMENT OF VASCULAR SURGERY OUTPATIENT VISIT DATE [...] pharyngeal cancer. Hx angiogram with intervention at [facility] in [place] with bilateral iliac stents and R EIA [...] Decision Making Level: 1 - N/A SIGNATURE: Ced Wright MD PATIENT NAME: Franki Hernandez DATE: December 30, 2021 TIME: 9:02 AM [facility] STAFF PHYSICIAN NOTE OF PERSONAL INVOLVEMENT IN [...] management of the patient's care. STAFF PHYSICIAN: Ced Wright MD DATE of SERVICE: 12/31/2021 TIME of SERVICE: 12:33 PM documented in this encounter [facility] 12-13-2021 Miscellaneous Notes Urology Telephone Note I spoke with pt over the phone today. I explained that her pharmacy does not carry the liquid formation of nitrofurantoin, not does the [facility] in [place]. She reports that she has been able to give him the nitrofurantoin capsules successfully and plans to continue giving it for the rest of the recommended course. Brock Cristina Jr., MD Reconstructive Urology Fellow documented in this encounter [facility] 12-04-2021 Miscellaneous Notes See today's telephone encounter. Merced Lackey APRN.CNP documented in this encounter [facility] 12-04-2021 Miscellaneous Notes Received prompt call back from daughter. Advised that radiology recommended MRI to further evaluate renal lesion. Instructed her to call [phone] to schedule. Daughter reports that Franki Hernandez cathed after voiding several times, and all PVRs were low (about 45 mL). Advised that they can go ahead and stop ISC. Daughter reports that urine has been cloudy; concerned about infection from having Berry in. Will go to lab at [place] to leave specimen for culture. Daughter reports [...] other questions or concerns at this time. Merced Lackey APRN.CNP Ordered MRI KIDNEY per radiology recommendations to further characterize renal lesion on CT KIDNEY. Left voicemail for daughter, advising that I had seen [employer] messages and CT results. Requested call back at [phone]. Merced Lackey APRN.CNP documented in this encounter [facility] 12-02-2021 History of Presen t illness [...] TIME: 10:41 AM documented in this encounter [facility] 11-27-2021 Instructions Merced Lackey APRN.NADER - 11/27/2021 2:20 PM EDT Please call me at [phone] if you have trouble with catheters or other questions. Please call radiology at [phone] of kidneys. documented in this encounter [facility] 11-27-2021 History of Presen t illness Narrative [facility] NEW PATIENT HISTORY AND PHYSICAL EXAM PATIENT INFO: Franki Hernandez 81 year old REFERRING Aleksandra: Dionicio Naq[address] [facility] [id number] = HISTORY: Franki Hernandez is a 81 [...] Has been following with Dr. Monsalve at [facility]. They briefly discussed trying ISC, but [...] and home health services. Daughter lives in [place]. 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 Franki Hernandez and are probably going to go to [place] with daughter next week, possibly through the winter. Daughter has questions about renal lesion noted on CT. Also has questions about follow up labs mentioned in discharge summary. Pantoprazole suspension not covered by insurance. Frederick Nielsen tried to dispense pills, but these can't go through tube. Daughter wants to know if [place] pharmacy can ship pantoprazole to their home. [...] fat-containing left inguinal hernia with focal fluid. Quarryman (topogram) images: No additional findings. = MEDICATIONS: [...] in passing 14F Coude (non hydrophilic from [employer] with green tip). Provided samples of 2 brands of 14F Coude (non hydrophilic) as well as a few 12F Coude from [employer] (white tip), plus lubricant and wipes. Will fax catheter order to [employer]. Instructed Franki Hernandez to try to void on his own, then do ISC TID. Will measure outputs for the next several days and follow up by phone early next week to confirm whether frequency should be adjusted. Ordered CT KIDNEY WO/W IVCON to further evaluate left renal lesion. Reordered pantoprazole suspension to [place] pharmacy so daughter can investigate availability/pricing/alternativ es. Will message primary team members from discharge summary to let them know that Franki Hernandez needs follow up lab orders. I spent a total of 60 minutes on the date of the service which included preparing to see the patient, nals-tp-wzco patient care, completing clinical documentation, performing a medically appropriate examination, counseling and educating the patient/family/caregiver, ordering medications, tests, or procedures and communicating with other HCPs (not separately reported). Electronically signed: Merced Lackey APRN.NADER documented in this encounter [facility] 11-27-2021 Miscellaneous Notes PATIENT INFORMATION Record ID: [id number] [facility] [place]: [facility] Attending: Antonio Tobar Center: [facility] Medicine INSTRUCTIONS MA to remind patient of appointment date, time, location SURVEY INFORMATION Medical/Nurse Shirt Hemmer: Ruth Coronel 1. Your discharge instructions are important in guiding you through the recovery process. Is there anything I could help you clarify on your discharge instructions? (Standard Question) No 2. Do you have a follow up appointment related to your hospital stay scheduled within the next 30 days? (Standard Question) Yes MA/SN Notes: 11.27.21 Appt Urology. 3. Many patients have concerns about their medications once they are home. Do you have any questions about getting or taking your medications? (Standard Question) No 4. Do you have any new or different symptoms? (Standard Question) No documented in this encounter [facility] 11-20-2021 Miscellaneous Notes Patient has been referred to Dr. Ced Wright for evaluation and treatment. Patient has been diagnosed with PVD. Records are in Care Everywhere and [facility]. Referral information is in [facility] under scanned documents. Please advise if any additional testing is needed prior to scheduling. Best Contact: Juli Rodas Region Manager documented in this encounter [facility] Evaluation note Diagnosis Urinary retention- Primary Retention of urine, unspecified Renal lesion Unspecified disorder of kidney and ureter [facility] Diagnosis Screening for genitourinary condition Screening for other and unspecified genitourinary condition [facility] Diagnosis Cloudy urine- Primary Other nonspecific finding on examination of urine [facility]* Diagnosis Screening for genitourinary condition Screening for other and unspecified genitourinary condition [facility] Diagnosis Peripheral arterial disease (HCC)- Primary Peripheral vascular disease, unspecified [facility] Diagnosis Feeding tube blocked, initial encounter- Primary SOB (shortness of breath) on exertion Shortness of breath Chronic cough Cough [facility] Diagnosis Other specified disorders of kidney and ureter [facility] Diagnosis Adult failure to thrive- Primary [facility] noteNo assessment [facility] Work Phone: Evaluation note* Diagnosis Adult failure to thrive- Primary Pre-op examination Preoperative examination, unspecified Adult failure to thrive Pre-op examination Preoperative examination, unspecified [facility]* Diagnosis S/P percutaneous endoscopic gastrostomy (PEG) tube placement (HCC)- Primary [facility] Diagnosis Onset Date Resolution Status Acute exacerbation of chroni c obstructive pulmonary disease acute Atrial fibrillation acute Diabetes acute Leukocytosis acute Urinary retention acute [facility] Work Phone: evaluation note* Diagnosis Renal lesion Unspecified disorder of kidney and ureter [facility] N[facility]* The patient [...] medication regimen. He denies medication side effects. [facility] [employer] Work Phone: History of Present illness Narrative* [...] medication regimen. He denies medication side effects. [facility] Seelio DO Work Phone: History of Present illness [...] medication regimen. He denies medication side effects. [facility] [employer] Work Phone: History of Present illness Narrative* [...] medication regimen. He denies medication side effects. -[facility]-Heriberto Lopez DO Work Phone: Summary Purpose Family History No Family History Records FoundUnknown Family Member Name Dates Details Family history [...] malignant neoplasm: Mother(V16.9, Z80.9) Status:Active Advance Directives No Advanced Directives Records FoundDocuments on File Type Date Recorded Patient [employer] Expl anation Advance Directive(s) 11/09/2021 9:21 PM Latest Code Status on File Code Status Date Activated Date Inactivated Comments Full Code 11/10/2021 4:09 AM Full Code Order Discussed With: Patient Latest Code Status on File Code Status Date Activated Date Inactivated Comments Full Code 11/10/2021 4:09 AM 11/20/2021 9:01 PM Documents on File Type Date Recorded Patient [employer] Tender Expl anation Advance Directive(s) 11/09/2021 9:21 PM [...] today proceeded. Patient was apparently readmitted to [facility] for dehydration/hypovolemia following his discharge from [facility] details of which are unknown. * [...] today proceeded. Patient was apparently readmitted to [facility] ICU for dehydration/hypovolemia following his discharge from [facility] details of which are unknown. * [...] today proceeded. Patient was apparently readmitted to [facility] ICU for dehydration/hypovolemia following his discharge from [facility] details of which are unknown. * Patient is lost approximately 50 pounds over the past year due to his acute on chronic illnesses. * Recommendations obtain chemistry panel, BNP, echocardiogram to reassess ventricular function, recommend hydration and nutritional supplementation, will follow-up in 6 months * I was in the hospital at [facility] * FRANKI HERNANDEZ is being seen for a 4 month follow-up of coronary artery disease and cardiomyopathy. * Patient ambulatory with wheeled walker. * Accompanied by daughter. * Evaluated in clinic Dr. Collins August 2021. * October 2021 hospitalized at [facility] d/t malnutrition. Had PEG removed and Corpak [...] to 60% as measured by echo at [facility]. He has underlying peripheral vascular disease, ongoing tobacco use, COPD, history of throat cancer with PEG tube. * He underwent recent hospitalization at [facility] with significant weight loss and debility and [...] a 6 month follow-up of. * 82-year-old mendel returns for follow-up. He has had previous high risk non-ST elevation PA earlier this year July 2021, with subsequent revascularization of the RCA with drug-eluting stent and normalization of his LV function originally from 30 now up to 60% as measured by echo at [facility]. He has underlying peripheral vascular disease, ongoing tobacco use, COPD, history of throat cancer with PEG tube. * He underwent recent hospitalization at [facility] with significant weight loss and debility and [...] * I was in the hospital at [facility] * FRANKI HERNANDEZ is being seen for a 4 month follow-up of coronary artery disease and cardiomyopathy. * Patient ambulatory with wheeled walker. * Accompanied by daughter. * Evaluated in clinic Dr. Collins August 2021. * October 2021 hospitalized at [facility] d/t malnutrition. Had PEG removed and Corpak [...] hospitalizations over the past 6 months at [facility] for shortness of breath, dyspnea, A-fib, dehydration [...] dyspnea from a symptomatic standpoint; we will summer counselor him on tobacco cessation for 3 to 5 minutes today; we will follow-up in 6 months with nurse practitioner with no further changes to his medical regimen at this time * FRANKI HERNANDEZ is being seen for med change, soon o/v. * Patient is a 83-year-old gentleman returns for follow-up. He has had several hospitalizations over the past 6 months at [facility] for shortness of breath, dyspnea, A-fib, dehydration [...] dyspnea from a symptomatic standpoint; we will summer counselor him on tobacco cessation for 3 to 5 minutes today; we will follow-up in 6 months with nurse practitioner with no further changes to his medical regimen at this time Reason for Referral Specialty Diagnoses / Procedures Referred By Joni mitchell Referred To Contact CT IMAGING Diagnoses Renal lesion Procedures CT KIDNEY WO/W IVCON CT ABDOMEN W & W/O CONTRAST Merced Lackey APRN.GENERATOR OPERATOR [address] [place] [address] Ct Imaging Referral ID Status Reason Start Date Expiration Date Visits Requested Visits Authorized [id number] Pending Review Auto-Generat ed Referral 11/27/2021 12/27/2022 1 1 Specialty Diagnoses / Procedures Referred By Joni mitchell Referred To Contact MR IMAGING Diagnoses Other specified disorders of kidney and ureter Procedures MRI KIDNEY WO/W IVCON MRI ABDOMEN W/O & W/CONTRAST MATERIAL Merced Lackey APRN.GENERATOR OPERATOR [address] [place], [place] [id number] Mr Imaging Referral ID Status Reason Start Date Expiration Date Visits Requested Visits Authorized [id number] Authorized Auto-Generat ed Referral 12/04/2021 01/03/2023 1 1 Referral ID Status Reason Start Date Expiration Date V isits Requested Visits Authorized [id number] Closed Auto-Generate d Referral 11/27/2021 12/27/2022 1 [...] section and content) DATE CREATED AUTHOR 05/02/2018 [facility] DATE CREATED AUTHOR AUTHOR'S ORGANIZ ATION 11/09/2021 [facility] DATE CREATED AUTHOR AUTHOR'S ORGANIZ ATION 10/07/2022 [facility] DATE CREATED AUTHOR AUTHOR'S ORGANIZ ATION 01/02/2023 [facility] DATE CREATED AUTHOR AUTHOR'S ORGANIZ ATION 02/06/2023 [facility] DATE CREATED AUTHOR AUTHOR'S ORGANIZ ATION 02/06/2023 [facility] DATE CREATED AUTHOR AUTHOR'S ORGANIZ ATION 06/08/2023 [facility] DATE CREATED AUTHOR AUTHOR'S ORGANIZ ATION 06/14/2023 [facility] Source Comments (unrecognize d section and content) In the event this informatio n is protected by the Federal Confidentiality of Alcohol and Drug Abuse Patient Records regulations: The Federal rules restrict any use of the information to criminally investigate or prosecute any alcohol or drug abuse patient.[facility] event this information is protected by the Federal Confidentiality of Alcohol and Drug Abuse Patient Records regulations: The Federal rules restrict any use of the information to criminally investigate or prosecute any alcohol or drug abuse patient.[facility] the event this information is protected by the Federal Confidentiality of Alcohol and Drug Abuse Patient Records regulations: The Federal rules restrict any use of the information to criminally investigate or prosecute any alcohol or drug abuse patient.[facility] the event this information is protected by the Federal Confidentiality of Alcohol and Drug Abuse Patient Records regulations: The Federal rules restrict any use of the information to criminally investigate or prosecute any alcohol or drug abuse patient.[facility] the event this information is protected by the Federal Confidentiality of Alcohol and Drug Abuse Patient Records regulations: The Federal rules restrict any use of the information to criminally investigate or prosecute any alcohol or drug abuse patient.[facility] the event this information is protected by the Federal Confidentiality of Alcohol and Drug Abuse Patient Records regulations: The Federal rules restrict any use of the information to criminally investigate or prosecute any alcohol or drug abuse patient.[facility] the event this information is protected by the Federal Confidentiality of Alcohol and Drug Abuse Patient Records regulations: The Federal rules restrict any use of the information to criminally investigate or prosecute any alcohol or drug abuse patient.[facility] the event this information is protected by the Federal Confidentiality of Alcohol and Drug Abuse Patient Records regulations: The Federal rules restrict any use of the information to criminally investigate or prosecute any alcohol or drug abuse patient.[facility] the event this information is protected by the Federal Confidentiality of Alcohol and Drug Abuse Patient Records regulations: The Federal rules restrict any use of the information to criminally investigate or prosecute any alcohol or drug abuse patient.[facility] the event this information is protected by the Federal Confidentiality of Alcohol and Drug Abuse Patient Records regulations: The Federal rules restrict any use of the information to criminally investigate or prosecute any alcohol or drug abuse patient.[facility] the event this information is protected by the Federal Confidentiality of Alcohol and Drug Abuse Patient Records regulations: The Federal rules restrict any use of the information to criminally investigate or prosecute any alcohol or drug abuse patient.[facility] the event this information is protected by the Federal Confidentiality of Alcohol and Drug Abuse Patient Records regulations: The Federal rules restrict any use of the information to criminally investigate or prosecute any alcohol or drug abuse patient.[facility] the event this information is protected by the Federal Confidentiality of Alcohol and Drug Abuse Patient Records regulations: The Federal rules restrict any use of the information to criminally investigate or prosecute any alcohol or drug abuse patient.[facility] the event this information is protected by the Federal Confidentiality of Alcohol and Drug Abuse Patient Records regulations: The Federal rules restrict any use of the information to criminally investigate or prosecute any alcohol or drug abuse patient.[facility] the event this information is protected by the Federal Confidentiality of Alcohol and Drug Abuse Patient Records regulations: The Federal rules restrict any use of the information to criminally investigate or prosecute any alcohol or drug abuse patient.[facility] the event this information is protected by the Federal Confidentiality of Alcohol and Drug Abuse Patient Records regulations: The Federal rules restrict any use of the information to criminally investigate or prosecute any alcohol or drug abuse patient.[facility] the event this information is protected by the Federal Confidentiality of Alcohol and Drug Abuse Patient Records regulations: The Federal rules restrict any use of the information to criminally investigate or prosecute any alcohol or drug abuse patient.[facility] the event this information is protected by the Federal Confidentiality of Alcohol and Drug Abuse Patient Records regulations: The Federal rules restrict any use of the information to criminally investigate or prosecute any alcohol or drug abuse patient.[facility] the event this information is protected by the Federal Confidentiality of Alcohol and Drug Abuse Patient Records regulations: The Federal rules restrict any use of the information to criminally investigate or prosecute any alcohol or drug abuse patient.[facility] Reason for Visit (unrecogniz ed section [...] IVCON MRI ABDOMEN W/O & W/CONTRAST MATERIAL Merced Lackey, KRISTIE.GENERATOR OPERATOR [address] [place] [address] Mr Imaging Referral ID Status Reason Start Date Expiration Date Visits Requested Visits Authorized [id number] Authorized Auto-Generat ed Referral 12/04/2021 01/03/2023 1 1 Reason Comments Established Patient Reason Comments 01/28/2022 Reason Comments Patient Update Reason Comments Medication Problem Reason Onset Date Comments Opened In Error 02/17/2022 Specialty Diagnoses / Procedures Referred By Joni t Referred To Contact CT IMAGING Diagnoses Renal lesion Procedures CT KIDNEY WO/W IVCON CT ABDOMEN W & W/O CONTRAST Merced Lackey APRN.GENERATOR OPERATOR [address] [place] [address] Ct Imaging Referral ID Status Reason Start Date Expiration Date V isits Requested Visits Authorized [id number] Closed Auto-Generate d Referral 11/27/2021 12/27/2022 1 1 Care Teams (unrecognized sec tion and content) Team Status: Active Member Role Status Dates Micheal Gutiérrez MD Primary Care Provider Active Team Status: Active Member Role Status Dates Micheal Gutiérrez MD Primary Care Provider Active Shukri Francisco MD Emergency Provider Active Jean-Pierre Otero , Admit Provider, Attending Provider Active Educational Technology Specialist Relationship Specialty Start Date End Date Micheal Gutiérrez MD [address] [place] [id number] PCP - General Family Practice 11/10/21 Educational Technology Specialist Relationship Specialty Start Date End Date Micheal Gutiérrez MD [address] [id number] PCP - General Family Practice 11/10/21 Educational Technology Specialist Relationship Specialty Start Date End Date Micheal Gutiérrez MD [address] [place] [id number] PCP - General Family Practice 11/10/21 Educational Technology Specialist Relationship Specialty Start Date End Date Micheal Gutiérrez MD [address] [place] [id number] PCP - General Family Practice 11/10/21 Educational Technology Specialist Relationship Specialty Start Date End Date Micheal Gutiérrez MD [address] [place] [id number] PCP - General Family Practice 11/10/21 Educational Technology Specialist Relationship Specialty Start Date End Date Micheal Gutiérrez MD [address] [place] [address] PCP - General Family Practice 11/10/21 Educational Technology Specialist Relationship Specialty Start Date End Date Micheal Gutiérrez MD [address] [place] [address] PCP - General Family Practice 11/10/21 Educational Technology Specialist Relationship Specialty Start Date End Date Micheal Gutiérrez MD [address] [place] [address] PCP - General Family Practice 11/10/21 Educational Technology Specialist Relationship Specialty Start Date End Date Micheal Gutiérrez MD [address] [place] [place] [place] [address] PCP - General Family Practice 11/10/21 Educational Technology Specialist Relationship Specialty Start Date End Date Micheal Gutiérrez MD [address] [place] [address] PCP - General Family Practice 11/10/21 Educational Technology Specialist Relationship Specialty Start Date End Date Micheal Gutiérrez MD [address] [place] [address] PCP - General Family Practice 11/10/21 Educational Technology Specialist Relationship Specialty Start Date End Date Micheal Gutiérrez MD [address] [facility] [place] [place] [address] PCP - General Family Practice 11/10/21 Team Status: Inactive Member Role Status Dates Micheal Gutiérrez MD Primary Care Provider Active Dino Guzman MD Attending Provider Active Educational Technology Specialist Relationship Specialty Start Date End Date Micheal Gutiérrez MD [address] [place] [place] [place] [address] PCP - General Family Practice 11/10/21 Educational Technology Specialist Relationship Specialty Start Date End Date Micheal Gutiérrez MD [address] [place] [place] [place] [address] PCP - General Family Practice 11/10/21 Educational Technology Specialist Relationship Specialty Start Date End Date Micheal Gutiérrez MD [address] [place] [address] PCP - General Family Medicine 11/10/21 Educational Technology Specialist Relationship Specialty Start Date End Date Micheal Gutiérrez MD [address] [place] [address] PCP - General Family Medicine 11/10/21 Educational Technology Specialist Relationship Specialty Start Date End Date Micheal [...] BE BASED ON THE PRIMARY CLINICAL RECORDS. [facility]. provides no warranty or guarantee of the accuracy or completeness of information in this document.
[2023-06-15 08:09] LABS: Adenovirus NOT DETECTED (NOT DETECTE); Bordetella parapertussis NOT DETECTED (NOT DETECTE); Coronavirus 229E NOT DETECTED (NOT DETECTE); Coronavirus HKU1 NOT DETECTED (NOT DETECTE); Coronavirus NL63 NOT DETECTED (NOT DETECTE); Coronavirus OC43 NOT DETECTED (NOT DETECTE); Human Metapneumovirus NOT DETECTED (NOT DETECTE); Human Rhinovirus/Enterovirus NOT DETECTED (NOT DETECTE); Influenza A NOT DETECTED (NOT DETECTE); Influenza B NOT DETECTED (NOT DETECTE); Mycoplasma pneumoniae NOT DETECTED (NOT DETECTE); Parainfluenza Virus 1 NOT DETECTED (NOT DETECTE); Parainfluenza Virus 2 NOT DETECTED (NOT DETECTE); Parainfluenza Virus 3 NOT DETECTED (NOT DETECTE); Parainfluenza Virus 4 NOT DETECTED (NOT DETECTE); Respiratory Syncytial Virus NOT DETECTED (NOT DETECTE); SARS-CoV-2 NOT DETECTED (NOT DETECTE)
[2023-06-15 08:17] LABS: Basophils Absolute Auto 0.1 10^3/uL (0.0-0.1); Basophils Percent Auto 0.3 % (0.2-2.0); Eosinophils Absolute Auto 0.1 10^3/uL (0.0-0.7); Eosinophils Percent Auto 0.6 % (0.9-7.0); Hematocrit 33.6 % (42.0-54.0); Hemoglobin 10.7 g/dL (14.0-18.0); Immature Granulocytes Abs Auto 0.22 10^3/uL (0.00-0.03); Immature Granulocytes Pct Auto 1.2 % (0.0-0.5); Lymphocytes Absolute Auto 0.7 10^3/uL (1.2-3.8); Lymphocytes Percent Auto 3.7 % (20.5-60.0); Mean Corpuscular HGB Conc 31.8 g/dL (29.9-35.2); Mean Corpuscular Hemoglobin 30.9 pg (25.9-34.0); Mean Corpuscular Volume 97.1 fL (80.0-94.0); Mean Platelet Volume 9.3 fL (9.5-13.5); Monocytes Absolute Auto 1.5 10^3/uL (0.3-0.8); Neutrophils Absolute Auto 16.1 10^3/uL (1.4-6.5); Neutrophils Percent Auto 86.2 % (43.0-75.0); Platelet Count 379 10^3/uL (150-450); Red Blood Count 3.46 10^6/uL (4.70-6.10); Red Cell Distribution Width 14.9 % (11.0-15.0); White Blood Count 18.6 10^3/uL (4.0-11.0)
[2023-06-15 08:32] LABS: Alanine Aminotransferase 13 U/L (16-63); Albumin Level 1.4 g/dL (3.4-5.0); Alkaline Phosphatase 222 U/L (46-116); Anion Gap 12.3; Aspartate Amino Transferase 21 U/L (15-37); BUN Creatinine Ratio 40.2; Bilirubin Total 0.5 mg/dL (0.2-1.0); Calcium 8.7 mg/dL (8.5-10.1); Carbon Dioxide 27.4 mmol/L (21.0-32.0); Chloride 108 mmol/L (98-107); Estimated GFR (African America >60 (>=60); Estimated GFR (Non-African Ame 57 (>=60); Glucose 77 mg/dL (74-106); Potassium 4.7 mmol/L (3.5-5.1); Sodium 143 mmol/L (136-145); Total Protein 5.4 g/dL (6.4-8.2)
[2023-06-15 08:40] LABS: Magnesium 2.5 mg/dL (1.8-2.4)
[2023-06-15 08:51] LABS: Troponin I High Sensitivity 93.5 pg/mL (4.0-76.1)
[2023-06-15 08:52] LABS: Albumin Globulin Ratio 0.3
--- NOTE | 2023-06-15 08:55 | ED.SOB1 ---
HPI - SOB/Dyspnea General Chief Complaint: Shortness of Breath/Dyspnea Stated Complaint: SHORTNESS OF BREATH Time Seen by Provider: 06/15/23 07:27 Mode of arrival: ambulance Limitations: no limitations History of Present Illness HPI Narrative: Patient brought in from home by squad after being found hypoxic at home. RA pulse ox only 87% on arrival. He was placed on oxygen. he wears home O2 prn and was found without it by EMS, who got a RA pulse ox reading in the 70s . Patient complains of back pain only. No chest pain. Denies cough or fever. Daughter takes care of him at home. She is concerned that the recently prescribed fentanyl patch from Dr Murphy is causing decreased activity, lethargy and difficulty ambulating. Related Data Home Medications Medication Instructions Recorded Confirmed albuterol sulfate 90 mcg/actuation 1 inh inhalation Q4H PRN shortness 11/10/22 06/15/23 aerosol inhaler (ProAir HFA) of breath or wheezing apixaban 2.5 mg tablet (Eliquis) 5 mg PO BID 11/10/22 06/15/23 finasteride 5 mg tablet 5 mg PO DAILY 11/10/22 06/15/23 insulin glargine 100 unit/mL (3 30 unit subcut DAILY 11/10/22 06/15/23 mL) subcutaneous pen (Lantus Solostar U-100 Insulin) levothyroxine 75 mcg capsule 75 mcg PO DAILY 11/10/22 06/15/23 pantoprazole 40 mg tablet,delayed 40 mg PO DAILY 11/10/22 06/15/23 release carvedilol 12.5 mg tablet 12.5 mg feeding tube QDAY 12/07/22 06/15/23 albuterol sulfate 2.5 mg/3 mL 2.5 mg inhalation Q6H PRN 05/15/23 06/15/23 (0.083 %) solution for nebulization shortness of breath or wheezing atorvastatin 20 mg tablet (Lipitor) 20 mg PO DAILY 06/15/23 06/15/23 ferrous sulfate 325 mg (65 mg 325 mg PO DAILY 06/15/23 06/15/23 iron) tablet (iron) Previous Rx's Medication Instructions Recorded hydrocodone 10 mg-acetaminophen 1 tab PO Q4H PRN pain #180 tabs 05/25/23 325 mg tablet Allergies Allergy/AdvReac Type Severity Reaction Status Date / Time No Known Drug Allergies Allergy Verified 05/22/23 18:28 [facility] Medical History (Updated 06/15/23 @ 10:44 by Walt Contreras) Generalized weakness ?R53.1 - Weakness (ICD-10) Closed rib fracture ?S22.39XA - Fracture of one rib, unspecified side, initial encounter for closed fracture (ICD-10) Rib fractures ?S22.49XA - Multiple fractures of ribs, unspecified side, initial encounter for closed fracture (ICD-10) Adult failure to thrive ?R62.7 - Adult failure to thrive (ICD-10) Hypothyroidism ?E03.9 - Hypothyroidism, unspecified (ICD-10) STACY (acute kidney injury) ?N17.9 - Acute kidney failure, unspecified (ICD-10) Metabolic encephalopathy ?G93.41 - Metabolic encephalopathy (ICD-10) Aspiration pneumonia ?J69.0 - Pneumonitis due to inhalation of food and vomit (ICD-10) Vomiting ?R11.10 - Vomiting, unspecified (ICD-10) Right middle lobe pneumonia ?J18.9 - Pneumonia, unspecified organism (ICD-10) Decubitus ulcer of coccygeal region ?L89.159 - Pressure ulcer of sacral region, unspecified stage (ICD-10) Back pain ?M54.9 - Dorsalgia, unspecified (ICD-10) COPD (chronic obstructive pulmonary disease) (Unknown) ?J44.9 - Chronic obstructive pulmonary disease, unspecified (ICD-10) Acute hyperkalemia ?E87.5 - Hyperkalemia (ICD-10) Acute dehydration ?E86.0 - Dehydration (ICD-10) Community acquired pneumonia ?J18.9 - Pneumonia, unspecified organism (ICD-10) History of gastrostomy tube placement History of arthritis ?Z87.39 - Personal history of other diseases of the musculoskeletal system and connective tissue (ICD-10) History of diabetes mellitus ?Z86.39 - Personal history of other endocrine, nutritional and metabolic disease (ICD-10) History of COPD ?Z87.09 - Personal history of other diseases of the respiratory system (ICD-10) History of throat cancer ?Z85.819 - Personal history of malignant neoplasm of unspecified site of lip, oral cavity, and pharynx (ICD-10) History of AK (myocardial infarction) ?I25.2 - Old myocardial infarction (ICD-10) History of compression fracture of spine ?Z87.81 - Personal history of (healed) traumatic fracture (ICD-10) Surgical History (Updated 11/10/22 @ 12:02 by Ronnie Rosado) History of colonoscopy ?Z98.890 - Other specified postprocedural states (ICD-10) History of esophagogastroduodenoscopy (EGD) ?Z98.890 - Other specified postprocedural states (ICD-10) History of heart artery stent ?Z95.5 - Presence of coronary angioplasty implant and graft (ICD-10) Social History (Updated 05/15/23 @ 02:42 by Arturo Oliveros) Within the past year, how often did you have a drink containing alcohol: never Score interpretation: A score less than 4 is consistent with normal alcohol consumption. Smoking status: Current every day smoker Nicotine containing products detail: 66 1 pack per day Non-prescribed substance use: denies use Previous occupational history: retired Highest level of school completed/degree received: high school graduate Are you now , , , , never or living with a partner: In a typical week, how many times do you talk on the telephone with family, friends, or neighbors: 3 or more times per week How often do you get together with friends or relatives: 3 or more times per week How often do you attend jehovah's witness or pentecostal services: never Do you belong to any clubs or organizations such as jehovah's witness groups unions, fraternal or athletic groups, or school groups: no Total score: 2 Score interpretation: A score of greater than or equal to 2 indicates the lowest level of social isolation. Little interest or pleasure in doing things: several days Feeling down, depressed, or hopeless: several days Feel stressed/tense/nervous/anxious/difficulty sleeping: not at all Do you think of yourself as: straight/heterosexual Gender Identity: male Exam Narrative Exam Narrative: Nurses notes and vital signs reviewed and patient IS hypoxic. afebrile General: Well-appearing and in no apparent distress. Skin: Warm, dry, no pallor noted. Multiple areas of ecchymosis. Head: Normocephalic, atraumatic. Neck: Supple, non-tender. Eye: Pupils are equal, round and EOMI. No scleral icterus. Ears, Nose, Mouth, and Throat: Oral mucosa is dry Cardiovascular: Regular Rate with irregular rhythm without murmur, gallop or rub. Respiratory: No accessory muscle use or respiratory distress. Lungs are clear to auscultation, no wheezing, rales or rhonchi Chest Wall: diffuse right sided chest tenderness Back: No midline thoracic or lumbar vertebral tenderness. No CVA tenderness Musculoskeletal: no sign of long bone fracture, no calf or popliteal tenderness, no lower extremity edema/swelling GI: Abdomen is soft, non-distended. Normal bowel sounds. No tenderness to palpation. No rebound, guarding, or rigidity noted. SACRAL: 2.5cm diameter decubitus ulcer without purulent drainage but with associated erythema Neurological: A&O x4. No cranial nerve dysfunction observed. No truncal ataxia. Moves all extremities. Sensation intact. Psychiatric: Cooperative and interactive. Normal mood and affect. Constitutional Vital Signs, click to edit/add: Last Vital Signs Temp 98.1 F 06/15/23 07:27 Pulse 100 H 06/15/23 18:41 Resp 22 06/15/23 18:41 BP 163/73 H 06/15/23 18:41 Pulse Ox 97 06/15/23 18:41 O2 Del Method Room Air 06/15/23 07:37 O2 Flow Rate 2 06/15/23 07:37 Course Vital Signs Vital signs: Vital Signs Pulse Rate 112 H 06/15/23 07:25 Respiratory Rate 17 06/15/23 07:25 Pulse Oximetry 86 L 06/15/23 07:25 Temperature 98.1 F 06/15/23 07:27 Pulse Rate 100 H 06/15/23 18:41 Respiratory Rate 22 06/15/23 18:41 Blood Pressure 163/73 H 06/15/23 18:41 Pulse Oximetry 97 06/15/23 18:41 Oxygen Delivery Method Room Air 06/15/23 07:37 Oxygen Delivery Flow Rate 2 06/15/23 07:37 MDM - SOB/Dyspnea MDM Narrative Medical decision making narrative: Patient was placed on monitoring tech and 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 Blood drawn and sent for evaluation. CXR obtained. Berry catheter placed. WBC elevated, lactate negative, CXR with RLL pneumonia still present - Patient given IV Rocephin. CMP at baseline including renal function. Elevated troponin and BNP with T wave inversion inferoseptal leads. He has AFfib and is on Eliquis. Case discussed with Dr Murphy. Also discussed with Dr Lema. Dr Murphy reaching out to the family to discuss making the patient DNR and to discuss NH placement once stabilized with admission to [facility]. Family wants patient to remain full code and have everything possible done. I spoke with Dr Anguiano, cardiology, to discuss the case. Troponin is down trending. She requests admission to hospitalist service with cardiology as a technical consultant. I spoke with Jena of the hospitalist service - accepts on behalf of Dr Rothman. Waiting for bed. Dr Alaniz made aware of patient at shift change. Patient suddenly passed large amount of bloody stool. he has developed numerous petechiae within the last hour or so - facial, torso and extremities. CBC redrawn and coags checked. Call palced to hospitalist to discuss. Dr Alaniz will follow labs and treat accordingly. Uma added for coverage. Lab Data Attestation: I reviewed the patient's lab results. Labs: Lab Results 06/15/23 06/15/23 06/15/23 Range/Units 07:35 07:57 08:55 WBC 18.6 H (4.0-11.0) 10^3/uL RBC 3.46 L (4.70-6.10) 10^6/uL Hgb 10.7 L (14.0-18.0) g/dL Hct 33.6 L (42.0-54.0) % MCV 97.1 H (80.0-94.0) fL MCH 30.9 (25.9-34.0) pg MCHC 31.8 (29.9-35.2) g/dL RDW 14.9 (11.0-15.0) % Plt Count 379 (150-450) 10^3/uL MPV 9.3 L (9.5-13.5) fL Neut % (Auto) 86.2 H (43.0-75.0) % Lymph % (Auto) 3.7 L (20.5-60.0) % [place] % (Auto) 8.0 (1.7-12.0) % Eos % (Auto) 0.6 L (0.9-7.0) % Baso % (Auto) 0.3 (0.2-2.0) % Neut # (Auto) 16.1 H (1.4-6.5) 10^3/uL Lymph # (Auto) 0.7 L (1.2-3.8) 10^3/uL [place] # (Auto) 1.5 H (0.3-0.8) 10^3/uL Eos # (Auto) 0.1 (0.0-0.7) 10^3/uL Baso # (Auto) 0.1 (0.0-0.1) 10^3/uL Abs Immat Gran (auto) 0.22 H (0.00-0.03) 10^3/uL Imm/Tot Granulo (auto) 1.2 H (0.0-0.5) % Sodium 143 (136-145) mmol/L Potassium 4.7 (3.5-5.1) mmol/L Chloride 108 H (98-107) mmol/L Carbon Dioxide 27.4 (21.0-32.0) mmol/L Anion Gap 12.3 BUN 49.0 H (7.0-18.0) mg/dL Creatinine 1.22 (0.70-1.30) mg/dL Est GFR ( Amer) >60 (>=60) Est GFR (Non-Af Amer) 57 L (>=60) BUN/Creatinine Ratio 40.2 Glucose 77 (74-106) mg/dL Lactate 2.0 (0.4-2.0) mmol/L Calcium 8.7 (8.5-10.1) mg/dL Magnesium 2.5 H (1.8-2.4) mg/dL Total Bilirubin 0.5 (0.2-1.0) mg/dL AST 21 (15-37) U/L ALT 13 L (16-63) U/L Alkaline Phosphatase 222 H (46-116) U/L Troponin I High Sens 93.5 H* (4.0-76.1) pg/mL NT-Pro-B Natriuret Pep 8919.0 H* (<=1800.0) pg/mL Total Protein 5.4 L (6.4-8.2) g/dL Albumin 1.4 L (3.4-5.0) g/dL Globulin 4.0 g/dL Albumin/Globulin Ratio 0.3 Procalcitonin 0.31 (0.00-0.50) ng/mL Urine Color Dk. yellow (YELLOW) Urine Clarity Clear (CLEAR) Urine pH 5.5 (5.0-9.0) Ur Specific [place] 1.020 (1.005-1.025) Urine Protein >=300 A (NEG/TRACE) mg/dL Urine Glucose (UA) Negative (NEGATIVE) mg/dL Urine Ketones Negative (NEGATIVE) mg/dL Urine Occult Blood Moderate A (NEGATIVE) Urine Nitrite Negative (NEGATIVE) Urine Bilirubin Small A (NEGATIVE) Urine Urobilinogen 0.2 (0.2-1.0) EU/dL Ur Leukocyte Esterase Negative (NEGATIVE) Urine RBC 2-5 A (0-2) #/HPF Urine WBC None seen (NONE SEEN) #/HPF Ur Squamous Epith Cells Few A (NONE/RARE) #/LPF Urine Bacteria None seen (NONE SEEN) #/HPF Urine Mucus Moderate A (NONE SEEN) Ur Culture Indicated? No Adenovirus (PCR) Not detected (NOT DETECTE) C. pneumoniae DNA (PCR) Not detected (NOT DETECTE) Coronavirus Type OC43 Not detected (NOT DETECTE) Coronavirus Type HKU1 Not detected (NOT DETECTE) Coronavirus Type 229E Not detected (NOT DETECTE) Coronavirus Type NL63 Not detected (NOT DETECTE) Human Metapneumovir PCR Not detected (NOT DETECTE) M. pneumoniae (PCR) Not detected (NOT DETECTE) Parainfluenza PCR Not detected (NOT DETECTE) Parainfluenza 2 (PCR) Not detected (NOT DETECTE) Parainfluenza 3 (PCR) Not detected (NOT DETECTE) Parainfluenza 4 (PCR) Not detected (NOT DETECTE) RSV (RT-PCR) Not detected (NOT DETECTE) Entero/Rhino (PCR) Not detected (NOT DETECTE) SARS-CoV-2 (PCR) Not detected (NOT DETECTE) Bordetella pertussis (PCR) Not detected (NOT DETECTE) B parapertussis DNA PCR Not detected (NOT DETECTE) Influenza Type A (PCR) Not detected (NOT DETECTE) Influenza Type B (PCR) Not detected (NOT DETECTE) 06/15/23 06/15/23 06/15/23 Range/Units 09:37 12:01 12:50 WBC (4.0-11.0) 10^3/uL RBC (4.70-6.10) 10^6/uL Hgb (14.0-18.0) g/dL Hct (42.0-54.0) % MCV (80.0-94.0) fL MCH (25.9-34.0) pg MCHC (29.9-35.2) g/dL RDW (11.0-15.0) % Plt Count (150-450) 10^3/uL MPV (9.5-13.5) fL Neut % (Auto) (43.0-75.0) % Lymph % (Auto) (20.5-60.0) % [place] % (Auto) (1.7-12.0) % Eos % (Auto) (0.9-7.0) % Baso % (Auto) (0.2-2.0) % Neut # (Auto) (1.4-6.5) 10^3/uL Lymph # (Auto) (1.2-3.8) 10^3/uL [place] # (Auto) (0.3-0.8) 10^3/uL Eos # (Auto) (0.0-0.7) 10^3/uL Baso # (Auto) (0.0-0.1) 10^3/uL Abs Immat Gran (auto) (0.00-0.03) 10^3/uL Imm/Tot Granulo (auto) (0.0-0.5) % Sodium (136-145) mmol/L Potassium (3.5-5.1) mmol/L Chloride (98-107) mmol/L Carbon Dioxide (21.0-32.0) mmol/L Anion Gap BUN (7.0-18.0) mg/dL Creatinine (0.70-1.30) mg/dL Est GFR ( Amer) (>=60) Est GFR (Non-Af Amer) (>=60) BUN/Creatinine Ratio Glucose (74-106) mg/dL Lactate 1.1 (0.4-2.0) mmol/L Calcium (8.5-10.1) mg/dL Magnesium (1.8-2.4) mg/dL Total Bilirubin (0.2-1.0) mg/dL AST (15-37) U/L ALT (16-63) U/L Alkaline Phosphatase (46-116) U/L Troponin I High Sens 87.6 H* 84.0 H* (4.0-76.1) pg/mL NT-Pro-B Natriuret Pep (<=1800.0) pg/mL Total Protein (6.4-8.2) g/dL Albumin (3.4-5.0) g/dL Globulin g/dL Albumin/Globulin Ratio Procalcitonin (0.00-0.50) ng/mL Urine Color (YELLOW) Urine Clarity (CLEAR) Urine pH (5.0-9.0) Ur Specific [place] (1.005-1.025) Urine Protein (NEG/TRACE) mg/dL Urine Glucose (UA) (NEGATIVE) mg/dL Urine Ketones (NEGATIVE) mg/dL Urine Occult Blood (NEGATIVE) Urine Nitrite (NEGATIVE) Urine Bilirubin (NEGATIVE) Urine Urobilinogen (0.2-1.0) EU/dL Ur Leukocyte Esterase (NEGATIVE) Urine RBC (0-2) #/HPF Urine WBC (NONE SEEN) #/HPF Ur Squamous Epith Cells (NONE/RARE) #/LPF Urine Bacteria (NONE SEEN) #/HPF Urine Mucus (NONE SEEN) Ur Culture Indicated? Adenovirus (PCR) (NOT DETECTE) C. pneumoniae DNA (PCR) (NOT DETECTE) Coronavirus Type OC43 (NOT DETECTE) Coronavirus Type HKU1 (NOT DETECTE) Coronavirus Type 229E (NOT DETECTE) Coronavirus Type NL63 (NOT DETECTE) Human Metapneumovir PCR (NOT DETECTE) M. pneumoniae (PCR) (NOT DETECTE) Parainfluenza PCR (NOT DETECTE) Parainfluenza 2 (PCR) (NOT DETECTE) Parainfluenza 3 (PCR) (NOT DETECTE) Parainfluenza 4 (PCR) (NOT DETECTE) RSV (RT-PCR) (NOT DETECTE) Entero/Rhino (PCR) (NOT DETECTE) SARS-CoV-2 (PCR) (NOT DETECTE) Bordetella pertussis (PCR) (NOT DETECTE) B parapertussis DNA PCR (NOT DETECTE) Influenza Type A (PCR) (NOT DETECTE) Influenza Type B (PCR) (NOT DETECTE) 06/15/23 Range/Units 18:46 WBC 15.0 H (4.0-11.0) 10^3/uL RBC 3.23 L (4.70-6.10) 10^6/uL Hgb 9.8 L (14.0-18.0) g/dL Hct 31.8 L (42.0-54.0) % MCV 98.5 H (80.0-94.0) fL MCH 30.3 (25.9-34.0) pg MCHC 30.8 (29.9-35.2) g/dL RDW 15.1 H (11.0-15.0) % Plt Count 362 (150-450) 10^3/uL MPV 9.2 L (9.5-13.5) fL Neut % (Auto) 86.8 H (43.0-75.0) % Lymph % (Auto) 3.9 L (20.5-60.0) % [place] % (Auto) 7.7 (1.7-12.0) % Eos % (Auto) 0.3 L (0.9-7.0) % Baso % (Auto) 0.2 (0.2-2.0) % Neut # (Auto) 13.0 H (1.4-6.5) 10^3/uL Lymph # (Auto) 0.6 L (1.2-3.8) 10^3/uL [place] # (Auto) 1.2 H (0.3-0.8) 10^3/uL Eos # (Auto) 0.0 (0.0-0.7) 10^3/uL Baso # (Auto) 0.0 (0.0-0.1) 10^3/uL Abs Immat Gran (auto) 0.17 H (0.00-0.03) 10^3/uL Imm/Tot Granulo (auto) 1.1 H (0.0-0.5) % Sodium (136-145) mmol/L Potassium (3.5-5.1) mmol/L Chloride (98-107) mmol/L Carbon Dioxide (21.0-32.0) mmol/L Anion Gap BUN (7.0-18.0) mg/dL Creatinine (0.70-1.30) mg/dL Est GFR ( Amer) (>=60) Est GFR (Non-Af Amer) (>=60) BUN/Creatinine Ratio Glucose (74-106) mg/dL Lactate (0.4-2.0) mmol/L Calcium (8.5-10.1) mg/dL Magnesium (1.8-2.4) mg/dL Total Bilirubin (0.2-1.0) mg/dL AST (15-37) U/L ALT (16-63) U/L Alkaline Phosphatase (46-116) U/L Troponin I High Sens (4.0-76.1) pg/mL NT-Pro-B Natriuret Pep (<=1800.0) pg/mL Total Protein (6.4-8.2) g/dL Albumin (3.4-5.0) g/dL Globulin g/dL Albumin/Globulin Ratio Procalcitonin (0.00-0.50) ng/mL Urine Color (YELLOW) Urine Clarity (CLEAR) Urine pH (5.0-9.0) Ur Specific [place] (1.005-1.025) Urine Protein (NEG/TRACE) mg/dL Urine Glucose (UA) (NEGATIVE) mg/dL Urine Ketones (NEGATIVE) mg/dL Urine Occult Blood (NEGATIVE) Urine Nitrite (NEGATIVE) Urine Bilirubin (NEGATIVE) Urine Urobilinogen (0.2-1.0) EU/dL Ur Leukocyte Esterase (NEGATIVE) Urine RBC (0-2) #/HPF Urine WBC (NONE SEEN) #/HPF Ur Squamous Epith Cells (NONE/RARE) #/LPF Urine Bacteria (NONE SEEN) #/HPF Urine Mucus (NONE SEEN) Ur Culture Indicated? Adenovirus (PCR) (NOT DETECTE) C. pneumoniae DNA (PCR) (NOT DETECTE) Coronavirus Type OC43 (NOT DETECTE) Coronavirus Type HKU1 (NOT DETECTE) Coronavirus Type 229E (NOT DETECTE) Coronavirus Type NL63 (NOT DETECTE) Human Metapneumovir PCR (NOT DETECTE) M. pneumoniae (PCR) (NOT DETECTE) Parainfluenza PCR (NOT DETECTE) Parainfluenza 2 (PCR) (NOT DETECTE) Parainfluenza 3 (PCR) (NOT DETECTE) Parainfluenza 4 (PCR) (NOT DETECTE) RSV (RT-PCR) (NOT DETECTE) Entero/Rhino (PCR) (NOT DETECTE) SARS-CoV-2 (PCR) (NOT DETECTE) Bordetella pertussis (PCR) (NOT DETECTE) B parapertussis DNA PCR (NOT DETECTE) Influenza Type A (PCR) (NOT DETECTE) Influenza Type B (PCR) (NOT DETECTE) Imaging Data Chest x-ray: Attestation: I have reviewed the pertinent imaging results. Radiologist's impression: ITS Impressions Chest X-Ray 06/15/23 07:31 IMPRESSION: Interval increase in right lower lobe airspace disease with possible minimal right pleural effusion. Multiple right-sided rib fractures are now noted, with faint adjacent density which may represent consolidation, contusion or hematoma. Electronically authenticated by: VERITO GUZMAN Date: 06/15/2023 08:19 ECG Data Attestation: I personally reviewed and interpreted this ECG as follows: Interpretation: EKG interpretation: Emergency Department physician interpretation. atrial fibrillation at 96bpm. Normal axis, normal intervals inferolateral T wave inversion. No ST segment elevation. Discharge Plan Discharge Chief Complaint: Shortness of Breath/Dyspnea Clinical Impression: Elevated troponin, Decubitus ulcer of sacral area, Chronic kidney disease, Right lower lobe pneumonia, Hypoxia Patient Disposition: [facility] Time of Disposition Decision: 09:30 Discharge Location: [facility]
[2023-06-15 09:03] LABS: PROCALCITONIN 0.31 ng/mL (0.00-0.50)
[2023-06-15 09:29] LABS: Bilirubin Urine SMALL (NEGATIVE); Blood Urine MODERATE (NEGATIVE); Clarity Urine CLEAR (CLEAR); Color Urine DK. YELLOW (YELLOW); Glucose Urine UA NEGATIVE (NEGATIVE); Ketones Urine NEGATIVE (NEGATIVE); Leukocyte Esterase Urine NEGATIVE (NEGATIVE); Nitrite Urine NEGATIVE (NEGATIVE); Protein Urine >=300 mg/dL (NEG/TRACE); Urobilinogen Urine 0.2 EU/dL (0.2-1.0); pH Urine 5.5 (5.0-9.0)
[2023-06-15 09:30] LABS: Urine Microscopic Indicated YES
[2023-06-15 09:39] LABS: Bacteria Urine NONE SEEN #/HPF (NONE SEEN); Mucus Urine MODERATE (NONE SEEN); WBC Urine NONE SEEN #/HPF (NONE SEEN)
[2023-06-15 09:40] LABS: Squamous Epithelial Cell Urine FEW #/LPF (NONE/RARE); Urine Culture Indicated NO
[2023-06-15 10:02] LABS: Troponin I High Sensitivity 87.6 pg/mL (4.0-76.1)
[2023-06-15 12:23] LABS: Lactate/Lactic Acid 1.1 mmol/L (0.4-2.0)
[2023-06-15 18:53] LABS: Basophils Percent Auto 0.2 % (0.2-2.0); Eosinophils Percent Auto 0.3 % (0.9-7.0); Hematocrit 31.8 % (42.0-54.0); Hemoglobin 9.8 g/dL (14.0-18.0); Immature Granulocytes Abs Auto 0.17 10^3/uL (0.00-0.03); Immature Granulocytes Pct Auto 1.1 % (0.0-0.5); Lymphocytes Absolute Auto 0.6 10^3/uL (1.2-3.8); Lymphocytes Percent Auto 3.9 % (20.5-60.0); Mean Corpuscular HGB Conc 30.8 g/dL (29.9-35.2); Mean Corpuscular Hemoglobin 30.3 pg (25.9-34.0); Mean Corpuscular Volume 98.5 fL (80.0-94.0); Mean Platelet Volume 9.2 fL (9.5-13.5); Monocytes Absolute Auto 1.2 10^3/uL (0.3-0.8); Monocytes Percent Auto 7.7 % (1.7-12.0); Neutrophils Percent Auto 86.8 % (43.0-75.0); Platelet Count 362 10^3/uL (150-450); Red Blood Count 3.23 10^6/uL (4.70-6.10); Red Cell Distribution Width 15.1 % (11.0-15.0)
[2023-06-15 19:10] LABS: Partial Thromboplastin Time 31.9 sec (22.3-36.2); Prothrombin Time 10.6 sec (9.0-11.6)
--- NOTE | 2023-06-15 19:21 | CT_ITS ---
[address] [address] Patient Name: FRANKI VELA MRN: [id number] date: 1940 Sex: M Assigned Patient Location: ER Current Patient Location: ED.MAIN Accession/Order Number: [id number] Exam Date: 06/15/2023 19:50 Report Date: 06/15/2023 20:43 At the request of: MIYA SIDDIQUI Procedure: CT abdomen pelvis wo con EXAM: CT abdomen pelvis wo con; [id number] REASON FOR EXAM: gi bleed TECHNIQUE: Helical CT images of the abdomen and pelvis were obtained without IV contrast. Multiplanar reformats were generated at the scanner. Dose reduction technique used: Automated exposure control and/or adjustment of the mA and/or kV according to patient size and/or use of iterative reconstruction technique. COMPARISON: CT abdomen/pelvis 05/14/2023. FINDINGS: Note: Compared with a contrast-enhanced CT exam, noncontrast images are relatively insensitive for detection of solid organ and vascular abnormalities. Visualized Chest: Severe right basilar consolidation, moderately worse compared with 05/14/2023. Left basilar multifocal consolidation has resolved. Small right pleural effusion. Abdomen: Liver: Within normal limits. Gallbladder: Hydropic gallbladder without evidence of acute cholecystitis. Bile Ducts: No significant biliary ductal dilatation. Pancreas: No ductal dilatation or inflammatory changes. Spleen: No splenomegaly. Adrenals: No nodules. Kidneys: -No stones or hydronephrosis. -Intermediate attenuation bilateral renal lesions, similar.-Bilateral renal vascular calcifications present. Vascular: No aortic aneurysm. Lymph Nodes: No adenopathy. Abdominal Wall: No hernia or mass. Pelvis: The bladder is decompressed with a Berry catheter. Bowel/Peritoneal Cavity/Mesentery: -Thickened and irregular appearance of the posterior wall of the rectum, similar compared with 05/14/2023. -Mildly above-average colonic stool burden. -No evidence of bowel obstruction. -No acute inflammatory changes. -No free air or free fluid. Musculoskeletal: -Multiple healing right-sided rib fractures present. -Healing right obturator ring fracture noted. -Multilevel vertebral compression fractures are similar. No new or worsening fracture demonstrated. CT/CT abdomen pelvis wo con IMPRESSION: 1. No acute intra-abdominal abnormality demonstrated. 2. Irregular thickened appearance to the posterior wall of the rectum, similar. 3. Multilevel vertebral compression fractures are similar. 4. Healing right obturator ring fractures and right-sided rib fractures. 5. Multifocal right basilar consolidation. The appearance is equivocal for atelectasis versus aspiration or pneumonia. 6. Small right pleural effusion. Electronically authenticated by: LOS HAMMER Date: 06/15/2023 20:43
--- NOTE | 2023-06-15 19:40 | PC.NURSE ---
This RN along with Florencia NAPOLES went together for a bedside report and patient evaluation which revealed that the patient had more rectal bleeding. We cleaned the patient and changed his bedding and gown. Florencia Napoles that was caring for the patient during day shift states that there is visible changing in the generalized bruising on the patient, that he continues to develop bruises through the day. This RN will continue to monitor the patient closely.
--- NOTE | 2023-06-15 20:16 | ED_ITS ---
HPI - General Adult General Chief complaint: Shortness of Breath/Dyspnea Stated complaint: SHORTNESS OF BREATH Time Seen by Provider: 06/15/23 07:27 Mode of arrival: ambulance Limitations: no limitations History of Present Illness HPI narrative: The Patient was initially seen by Dr. Contreras and signed out to me after discussing the case with him thoroughly. Please see his full history and physical. Related Data Home Medications Medication Instructions Recorded Confirmed albuterol sulfate 90 mcg/actuation 1 inh inhalation Q4H PRN shortness 11/10/22 06/15/23 aerosol inhaler (ProAir HFA) of breath or wheezing apixaban 2.5 mg tablet (Eliquis) 5 mg PO BID 11/10/22 06/15/23 finasteride 5 mg tablet 5 mg PO DAILY 11/10/22 06/15/23 insulin glargine 100 unit/mL (3 30 unit subcut DAILY 11/10/22 06/15/23 mL) subcutaneous pen (Lantus Solostar U-100 Insulin) levothyroxine 75 mcg capsule 75 mcg PO DAILY 11/10/22 06/15/23 pantoprazole 40 mg tablet,delayed 40 mg PO DAILY 11/10/22 06/15/23 release carvedilol 12.5 mg tablet 12.5 mg feeding tube QDAY 12/07/22 06/15/23 albuterol sulfate 2.5 mg/3 mL 2.5 mg inhalation Q6H PRN 05/15/23 06/15/23 (0.083 %) solution for nebulization shortness of breath or wheezing atorvastatin 20 mg tablet (Lipitor) 20 mg PO DAILY 06/15/23 06/15/23 ferrous sulfate 325 mg (65 mg 325 mg PO DAILY 06/15/23 06/15/23 iron) tablet (iron) Previous Rx's Medication Instructions Recorded hydrocodone 10 mg-acetaminophen 1 tab PO Q4H PRN pain #180 tabs 05/25/23 325 mg tablet Allergies Allergy/AdvReac Type Severity Reaction Status Date / Time No Known Drug Allergies Allergy Verified 05/22/23 18:28 [facility] Medical History (Updated 06/15/23 @ 20:14 by Emeterio Alaniz MD) Generalized weakness ?R53.1 - Weakness (ICD-10) Closed rib fracture ?S22.39XA - Fracture of one rib, unspecified side, initial encounter for closed fracture (ICD-10) Rib fractures ?S22.49XA - Multiple fractures of ribs, unspecified side, initial encounter for closed fracture (ICD-10) Adult failure to thrive ?R62.7 - Adult failure to thrive (ICD-10) Hypothyroidism ?E03.9 - Hypothyroidism, unspecified (ICD-10) STACY (acute kidney injury) ?N17.9 - Acute kidney failure, unspecified (ICD-10) Metabolic encephalopathy ?G93.41 - Metabolic encephalopathy (ICD-10) Aspiration pneumonia ?J69.0 - Pneumonitis due to inhalation of food and vomit (ICD-10) Vomiting ?R11.10 - Vomiting, unspecified (ICD-10) Right middle lobe pneumonia ?J18.9 - Pneumonia, unspecified organism (ICD-10) Decubitus ulcer of coccygeal region ?L89.159 - Pressure ulcer of sacral region, unspecified stage (ICD-10) Back pain ?M54.9 - Dorsalgia, unspecified (ICD-10) COPD (chronic obstructive pulmonary disease) (Unknown) ?J44.9 - Chronic obstructive pulmonary disease, unspecified (ICD-10) Acute hyperkalemia ?E87.5 - Hyperkalemia (ICD-10) Acute dehydration ?E86.0 - Dehydration (ICD-10) Community acquired pneumonia ?J18.9 - Pneumonia, unspecified organism (ICD-10) History of gastrostomy tube placement History of arthritis ?Z87.39 - Personal history of other diseases of the musculoskeletal system and connective tissue (ICD-10) History of diabetes mellitus ?Z86.39 - Personal history of other endocrine, nutritional and metabolic disease (ICD-10) History of COPD ?Z87.09 - Personal history of other diseases of the respiratory system (ICD- 10) History of throat cancer ?Z85.819 - Personal history of malignant neoplasm of unspecified site of lip, oral cavity, and pharynx (ICD-10) History of IA (myocardial infarction) ?I25.2 - Old myocardial infarction (ICD-10) History of compression fracture of spine ?Z87.81 - Personal history of (healed) traumatic fracture (ICD-10) Surgical History (Updated 11/10/22 @ 12:02 by Ronnie Rosado) History of colonoscopy ?Z98.890 - Other specified postprocedural states (ICD-10) History of esophagogastroduodenoscopy (EGD) ?Z98.890 - Other specified postprocedural states (ICD-10) History of heart artery stent ?Z95.5 - Presence of coronary angioplasty implant and graft (ICD-10) Social History (Updated 05/15/23 @ 02:42 by Arturo Oliveros) Within the past year, how often did you have a drink containing alcohol: never Score interpretation: A score less than 4 is consistent with normal alcohol consumption. Smoking status: Current every day smoker Nicotine containing products detail: 66 1 pack per day Non-prescribed substance use: denies use Previous occupational history: retired Highest level of school completed/degree received: high school graduate Are you now , , , , never or living with a partner: In a typical week, how many times do you talk on the telephone with family, friends, or neighbors: 3 or more times per week How often do you get together with friends or relatives: 3 or more times per week How often do you attend latter day or yazdanism services: never Do you belong to any clubs or organizations such as latter day groups unions, [employer] or athletic groups, or school groups: no Total score: 2 Score interpretation: A score of greater than or equal to 2 indicates the lowest level of social isolation. Little interest or pleasure in doing things: several days Feeling down, depressed, or hopeless: several days Feel stressed/tense/nervous/anxious/difficulty sleeping: not at all Do you think of yourself as: straight/heterosexual Gender Identity: male Exam Constitutional Vital Signs, click to edit/add: Last Vital Signs Temp 98.1 F 06/15/23 07:27 Pulse 105 H 06/15/23 20:07 Resp 20 06/15/23 20:07 BP 156/84 H 06/15/23 20:07 Pulse Ox 98 06/15/23 20:07 O2 Del Method Nasal Cannula 06/15/23 20:07 O2 Flow Rate 2 06/15/23 20:07 Course Vital Signs Vital signs: Vital Signs Pulse Rate 112 H 06/15/23 07:25 Respiratory Rate 17 06/15/23 07:25 Pulse Oximetry 86 L 06/15/23 07:25 Temperature 98.1 F 06/15/23 07:27 Pulse Rate 105 H 06/15/23 20:07 Respiratory Rate 20 06/15/23 20:07 Blood Pressure 156/84 H 06/15/23 20:07 Pulse Oximetry 98 06/15/23 20:07 Oxygen Delivery Method Nasal Cannula 06/15/23 20:07 Oxygen Delivery Flow Rate 2 06/15/23 20:07 Medical Decision Making MDM Narrative Medical decision making narrative: At approximately 6:30 PM the patient developed large amount of maroon stool passing from his rectum. He is on Eliquis. He also developed some petechiae and bruising on his for head and neck and upper chest areas. Platelet count has not dropped but his hemoglobin has dropped approximately 1 g since this morning. Type and cross and transfusion was ordered and he is being given two units of blood. The initial plan was to transfer him to [facility] but they do not have any beds available and will be an extended delay in obtaining him care that is needed. I've spoken to his daughter, alfredo, and she requests that the patient be transferred to [facility]. I've spoken to the hospitalist there and the patient will be transferred there for appropriate care. He is being transfused and CAT scan of his abdomen is ordered and pending. He was also given IV Protonix. Lab Data Lab results reviewed: Yes I reviewed the patient's lab results Labs: Lab Results 06/15/23 06/15/23 06/15/23 Range/Units 07:35 07:57 08:55 WBC 18.6 H (4.0-11.0) 10^3/uL RBC 3.46 L (4.70-6.10) 10^6/uL Hgb 10.7 L (14.0-18.0) g/dL Hct 33.6 L (42.0-54.0) % MCV 97.1 H (80.0-94.0) fL MCH 30.9 (25.9-34.0) pg MCHC 31.8 (29.9-35.2) g/dL RDW 14.9 (11.0-15.0) % Plt Count 379 (150-450) 10^3/uL MPV 9.3 L (9.5-13.5) fL Neut % (Auto) 86.2 H (43.0-75.0) % Lymph % (Auto) 3.7 L (20.5-60.0) % [place] % (Auto) 8.0 (1.7-12.0) % Eos % (Auto) 0.6 L (0.9-7.0) % Baso % (Auto) 0.3 (0.2-2.0) % Neut # (Auto) 16.1 H (1.4-6.5) 10^3/uL Lymph # (Auto) 0.7 L (1.2-3.8) 10^3/uL [place] # (Auto) 1.5 H (0.3-0.8) 10^3/uL Eos # (Auto) 0.1 (0.0-0.7) 10^3/uL Baso # (Auto) 0.1 (0.0-0.1) 10^3/uL Abs Immat Gran (auto) 0.22 H (0.00-0.03) 10^3/uL Imm/Tot Granulo (auto) 1.2 H (0.0-0.5) % PT (9.0-11.6) sec INR APTT (22.3-36.2) sec Sodium 143 (136-145) mmol/L Potassium 4.7 (3.5-5.1) mmol/L Chloride 108 H (98-107) mmol/L Carbon Dioxide 27.4 (21.0-32.0) mmol/L Anion Gap 12.3 BUN 49.0 H (7.0-18.0) mg/dL Creatinine 1.22 (0.70-1.30) mg/dL Est GFR ( Amer) >60 (>=60) Est GFR (Non-Af Amer) 57 L (>=60) BUN/Creatinine Ratio 40.2 Glucose 77 (74-106) mg/dL Lactate 2.0 (0.4-2.0) mmol/L Calcium 8.7 (8.5-10.1) mg/dL Magnesium 2.5 H (1.8-2.4) mg/dL Total Bilirubin 0.5 (0.2-1.0) mg/dL AST 21 (15-37) U/L ALT 13 L (16-63) U/L Alkaline Phosphatase 222 H (46-116) U/L Troponin I High Sens 93.5 H* (4.0-76.1) pg/mL NT-Pro-B Natriuret Pep 8919.0 H* (<=1800.0) pg/mL Total Protein 5.4 L (6.4-8.2) g/dL Albumin 1.4 L (3.4-5.0) g/dL Globulin 4.0 g/dL Albumin/Globulin Ratio 0.3 Procalcitonin 0.31 (0.00-0.50) ng/mL Urine Color Dk. yellow (YELLOW) Urine Clarity Clear (CLEAR) Urine pH 5.5 (5.0-9.0) Ur Specific [place] 1.020 (1.005-1.025) Urine Protein >=300 A (NEG/TRACE) mg/dL Urine Glucose (UA) Negative (NEGATIVE) mg/dL Urine Ketones Negative (NEGATIVE) mg/dL Urine Occult Blood Moderate A (NEGATIVE) Urine Nitrite Negative (NEGATIVE) Urine Bilirubin Small A (NEGATIVE) Urine Urobilinogen 0.2 (0.2-1.0) EU/dL Ur Leukocyte Esterase Negative (NEGATIVE) Urine RBC 2-5 A (0-2) #/HPF Urine WBC None seen (NONE SEEN) #/HPF Ur Squamous Epith Cells Few A (NONE/RARE) #/LPF Urine Bacteria None seen (NONE SEEN) #/HPF Urine Mucus Moderate A (NONE SEEN) Ur Culture Indicated? No Adenovirus (PCR) Not detected (NOT DETECTE) C. pneumoniae DNA (PCR) Not detected (NOT DETECTE) Coronavirus Type OC43 Not detected (NOT DETECTE) Coronavirus Type HKU1 Not detected (NOT DETECTE) Coronavirus Type 229E Not detected (NOT DETECTE) Coronavirus Type NL63 Not detected (NOT DETECTE) Human Metapneumovir PCR Not detected (NOT DETECTE) M. pneumoniae (PCR) Not detected (NOT DETECTE) Parainfluenza PCR Not detected (NOT DETECTE) Parainfluenza 2 (PCR) Not detected (NOT DETECTE) Parainfluenza 3 (PCR) Not detected (NOT DETECTE) Parainfluenza 4 (PCR) Not detected (NOT DETECTE) RSV (RT-PCR) Not detected (NOT DETECTE) Entero/Rhino (PCR) Not detected (NOT DETECTE) SARS-CoV-2 (PCR) Not detected (NOT DETECTE) Bordetella pertussis (PCR) Not detected (NOT DETECTE) B parapertussis DNA PCR Not detected (NOT DETECTE) Influenza Type A (PCR) Not detected (NOT DETECTE) Influenza Type B (PCR) Not detected (NOT DETECTE) Blood Type Antibody Screen Crossmatch 06/15/23 06/15/23 06/15/23 Range/Units 09:37 12:01 12:50 WBC (4.0-11.0) 10^3/uL RBC (4.70-6.10) 10^6/uL Hgb (14.0-18.0) g/dL Hct (42.0-54.0) % MCV (80.0-94.0) fL MCH (25.9-34.0) pg MCHC (29.9-35.2) g/dL RDW (11.0-15.0) % Plt Count (150-450) 10^3/uL MPV (9.5-13.5) fL Neut % (Auto) (43.0-75.0) % Lymph % (Auto) (20.5-60.0) % [place] % (Auto) (1.7-12.0) % Eos % (Auto) (0.9-7.0) % Baso % (Auto) (0.2-2.0) % Neut # (Auto) (1.4-6.5) 10^3/uL Lymph # (Auto) (1.2-3.8) 10^3/uL [place] # (Auto) (0.3-0.8) 10^3/uL Eos # (Auto) (0.0-0.7) 10^3/uL Baso # (Auto) (0.0-0.1) 10^3/uL Abs Immat Gran (auto) (0.00-0.03) 10^3/uL Imm/Tot Granulo (auto) (0.0-0.5) % PT (9.0-11.6) sec INR APTT (22.3-36.2) sec Sodium (136-145) mmol/L Potassium (3.5-5.1) mmol/L Chloride (98-107) mmol/L Carbon Dioxide (21.0-32.0) mmol/L Anion Gap BUN (7.0-18.0) mg/dL Creatinine (0.70-1.30) mg/dL Est GFR ( Amer) (>=60) Est GFR (Non-Af Amer) (>=60) BUN/Creatinine Ratio Glucose (74-106) mg/dL Lactate 1.1 (0.4-2.0) mmol/L Calcium (8.5-10.1) mg/dL Magnesium (1.8-2.4) mg/dL Total Bilirubin (0.2-1.0) mg/dL AST (15-37) U/L ALT (16-63) U/L Alkaline Phosphatase (46-116) U/L Troponin I High Sens 87.6 H* 84.0 H* (4.0-76.1) pg/mL NT-Pro-B Natriuret Pep (<=1800.0) pg/mL Total Protein (6.4-8.2) g/dL Albumin (3.4-5.0) g/dL Globulin g/dL Albumin/Globulin Ratio Procalcitonin (0.00-0.50) ng/mL Urine Color (YELLOW) Urine Clarity (CLEAR) Urine pH (5.0-9.0) Ur Specific [place] (1.005-1.025) Urine Protein (NEG/TRACE) mg/dL Urine Glucose (UA) (NEGATIVE) mg/dL Urine Ketones (NEGATIVE) mg/dL Urine Occult Blood (NEGATIVE) Urine Nitrite (NEGATIVE) Urine Bilirubin (NEGATIVE) Urine Urobilinogen (0.2-1.0) EU/dL Ur Leukocyte Esterase (NEGATIVE) Urine RBC (0-2) #/HPF Urine WBC (NONE SEEN) #/HPF Ur Squamous Epith Cells (NONE/RARE) #/LPF Urine Bacteria (NONE SEEN) #/HPF Urine Mucus (NONE SEEN) Ur Culture Indicated? Adenovirus (PCR) (NOT DETECTE) C. pneumoniae DNA (PCR) (NOT DETECTE) Coronavirus Type OC43 (NOT DETECTE) Coronavirus Type HKU1 (NOT DETECTE) Coronavirus Type 229E (NOT DETECTE) Coronavirus Type NL63 (NOT DETECTE) Human Metapneumovir PCR (NOT DETECTE) M. pneumoniae (PCR) (NOT DETECTE) Parainfluenza PCR (NOT DETECTE) Parainfluenza 2 (PCR) (NOT DETECTE) Parainfluenza 3 (PCR) (NOT DETECTE) Parainfluenza 4 (PCR) (NOT DETECTE) RSV (RT-PCR) (NOT DETECTE) Entero/Rhino (PCR) (NOT DETECTE) SARS-CoV-2 (PCR) (NOT DETECTE) Bordetella pertussis (PCR) (NOT DETECTE) B parapertussis DNA PCR (NOT DETECTE) Influenza Type A (PCR) (NOT DETECTE) Influenza Type B (PCR) (NOT DETECTE) Blood Type Antibody Screen Crossmatch 06/15/23 Range/Units 18:46 WBC 15.0 H (4.0-11.0) 10^3/uL RBC 3.23 L (4.70-6.10) 10^6/uL Hgb 9.8 L (14.0-18.0) g/dL Hct 31.8 L (42.0-54.0) % MCV 98.5 H (80.0-94.0) fL MCH 30.3 (25.9-34.0) pg MCHC 30.8 (29.9-35.2) g/dL RDW 15.1 H (11.0-15.0) % Plt Count 362 (150-450) 10^3/uL MPV 9.2 L (9.5-13.5) fL Neut % (Auto) 86.8 H (43.0-75.0) % Lymph % (Auto) 3.9 L (20.5-60.0) % [place] % (Auto) 7.7 (1.7-12.0) % Eos % (Auto) 0.3 L (0.9-7.0) % Baso % (Auto) 0.2 (0.2-2.0) % Neut # (Auto) 13.0 H (1.4-6.5) 10^3/uL Lymph # (Auto) 0.6 L (1.2-3.8) 10^3/uL [place] # (Auto) 1.2 H (0.3-0.8) 10^3/uL Eos # (Auto) 0.0 (0.0-0.7) 10^3/uL Baso # (Auto) 0.0 (0.0-0.1) 10^3/uL Abs Immat Gran (auto) 0.17 H (0.00-0.03) 10^3/uL Imm/Tot Granulo (auto) 1.1 H (0.0-0.5) % PT 10.6 (9.0-11.6) sec INR 1.00 APTT 31.9 (22.3-36.2) sec Sodium (136-145) mmol/L Potassium (3.5-5.1) mmol/L Chloride (98-107) mmol/L Carbon Dioxide (21.0-32.0) mmol/L Anion Gap BUN (7.0-18.0) mg/dL Creatinine (0.70-1.30) mg/dL Est GFR ( Amer) (>=60) Est GFR (Non-Af Amer) (>=60) BUN/Creatinine Ratio Glucose (74-106) mg/dL Lactate (0.4-2.0) mmol/L Calcium (8.5-10.1) mg/dL Magnesium (1.8-2.4) mg/dL Total Bilirubin (0.2-1.0) mg/dL AST (15-37) U/L ALT (16-63) U/L Alkaline Phosphatase (46-116) U/L Troponin I High Sens (4.0-76.1) pg/mL NT-Pro-B Natriuret Pep (<=1800.0) pg/mL Total Protein (6.4-8.2) g/dL Albumin (3.4-5.0) g/dL Globulin g/dL Albumin/Globulin Ratio Procalcitonin (0.00-0.50) ng/mL Urine Color (YELLOW) Urine Clarity (CLEAR) Urine pH (5.0-9.0) Ur Specific [place] (1.005-1.025) Urine Protein (NEG/TRACE) mg/dL Urine Glucose (UA) (NEGATIVE) mg/dL Urine Ketones (NEGATIVE) mg/dL Urine Occult Blood (NEGATIVE) Urine Nitrite (NEGATIVE) Urine Bilirubin (NEGATIVE) Urine Urobilinogen (0.2-1.0) EU/dL Ur Leukocyte Esterase (NEGATIVE) Urine RBC (0-2) #/HPF Urine WBC (NONE SEEN) #/HPF Ur Squamous Epith Cells (NONE/RARE) #/LPF Urine Bacteria (NONE SEEN) #/HPF Urine Mucus (NONE SEEN) Ur Culture Indicated? Adenovirus (PCR) (NOT DETECTE) C. pneumoniae DNA (PCR) (NOT DETECTE) Coronavirus Type OC43 (NOT DETECTE) Coronavirus Type HKU1 (NOT DETECTE) Coronavirus Type 229E (NOT DETECTE) Coronavirus Type NL63 (NOT DETECTE) Human Metapneumovir PCR (NOT DETECTE) M. pneumoniae (PCR) (NOT DETECTE) Parainfluenza PCR (NOT DETECTE) Parainfluenza 2 (PCR) (NOT DETECTE) Parainfluenza 3 (PCR) (NOT DETECTE) Parainfluenza 4 (PCR) (NOT DETECTE) RSV (RT-PCR) (NOT DETECTE) Entero/Rhino (PCR) (NOT DETECTE) SARS-CoV-2 (PCR) (NOT DETECTE) Bordetella pertussis (PCR) (NOT DETECTE) B parapertussis DNA PCR (NOT DETECTE) Influenza Type A (PCR) (NOT DETECTE) Influenza Type B (PCR) (NOT DETECTE) Blood Type O Positive Antibody Screen Negative Crossmatch See Detail Imaging Data Chest x-ray: Radiologist's impression: ITS Impressions Chest X-Ray 06/15/23 07:31 IMPRESSION: Interval increase in right lower lobe airspace disease with possible minimal right pleural effusion. Multiple right-sided rib fractures are now noted, with faint adjacent density which may represent consolidation, contusion or hematoma. Electronically authenticated by: VERITO GUZMAN Date: 06/15/2023 08:19 Critical Care Time Critical Care Time Critical Care Time: Yes Total Critical Care Time: 45 Attestation: Due to the high probability of sudden and clinically significant deterioration in the patient's condition he/she required the highest level of my preparedness to intervene urgently I provided critical care time including documentation time, medication orders and management, reevaluation, vital sign assessment, ordering and reviewing of lab tests, ordering and reviewing of x-ray studies, and admission orders. Aggregate critical care time is 45 minutes including only time during which I was engaged in work directly related to his/her care and did not include time spent treating other patients simultaneously. Discharge Plan Discharge Chief Complaint: Shortness of Breath/Dyspnea Clinical Impression: Elevated troponin, Decubitus ulcer of sacral area, Chronic kidney disease, Right lower lobe pneumonia, Hypoxia, Gastrointestinal bleed Patient Disposition: [facility] Time of Disposition Decision: 09:30 Discharge Location: [facility] Condition: Critical Mode of Transportation: EMS
[2023-06-15] MEDS: PANTOPRAZOLE SODIUM 40 MG VIAL IV (20:37)
[2023-06-15] MEDS: 0.9 % SODIUM CHLORIDE 500 ML IV (20:38)
[2023-06-15] MEDS: MORPHINE SULFATE 4 MG/ML VIAL 2 MG IV (21:12)
--- NOTE | 2023-06-15 21:45 | PC.NURSE ---
Patient was transferred to [facility] with blood still transfusing.
--- NOTE | 2023-06-15 21:55 | PC.NURSE ---
aproximately 175ml of blood product had been infused prior to the patient being transferred to [facility]. The rest was handed off to [facility] and continued to infuse.
== END 2023-06-15 21:35 | disposition short-term general hospital (02) ==
PROVIDERS: Emergency Medicine; Emergency Provider Emergency Medicine; PCP Family Medicine
DX: J18.9 Pneumonia, unspecified organism (principal); R79.89 Other specified abnormal findings of blood chemistry; N18.9 Chronic kidney disease, unspecified; L89.159 Pressure ulcer of sacral region, unspecified stage; K92.1 Melena; R23.3 Spontaneous ecchymoses; R06.02 Shortness of breath; I48.91 Unspecified atrial fibrillation; E03.9 Hypothyroidism, unspecified; J44.9 Chronic obstructive pulmonary disease, unspecified; Z99.81 Dependence on supplemental oxygen; Z79.01 Long term (current) use of anticoagulants; Z79.899 Other long term (current) drug therapy; Z79.890 Hormone replacement therapy; Z79.4 Long term (current) use of insulin; Z87.01 Personal history of pneumonia (recurrent); Z87.39 Personal history of other diseases of the musculoskeletal system and connective tissue; Z86.39 Personal history of other endocrine, nutritional and metabolic disease; Z85.819 Personal history of malignant neoplasm of unspecified site of lip, oral cavity, and pharynx; I25.2 Old myocardial infarction; Z87.81 Personal history of (healed) traumatic fracture; Z95.5 Presence of coronary angioplasty implant and graft; Z98.890 Other specified postprocedural states; F17.210 Nicotine dependence, cigarettes, uncomplicated; Z20.822 Contact with and (suspected) exposure to COVID-19
CPT/HCPCS: 0202U; 36415; 36430; 51702; 71045; 74176; 80053; 81001; 83605; 83735; 83880; 84145; 84484; 85025; 85610; 85730; 86850; 86900; 86901; 87040; 87070; 87150; 87186; 93005; 96365; 96366; 96375; 99285; J0696; J2270; P9016